=== PATIENT | male | born 1965 | race American Indian/Alaskan Native ===

== ENCOUNTER 2020-10-10 10:20 | Inpatient (IN) | payer OTHER ==
[2020-10-10] MEDS ORDERED: SODIUM CHLORIDE 0.9% 1000 ML 1,000 ML ONE ×2 (10:28→16:19)
[2020-10-10] MEDS ORDERED: MIDAZOLAM 5 MG/5 ML INJ MDV IV ONE (10:28)
[2020-10-10] MEDS ORDERED: LIP THERAPY VASELINE TP PRN (10:34)
[2020-10-10] MEDS ORDERED: MIDAZOLAM 2 MG/2 ML INJ IV PRN (10:34)
[2020-10-10] MEDS ORDERED: MINERAL OIL/PETROLATUM, WHITE OPHTH OINT 3.5 GM OU PRN (10:34)
[2020-10-10] MEDS ORDERED: levETIRAcetam 1000 MG/NS 0.75% 1,000 MG/100 ML BAG IV ONE (10:37)
--- NOTE | 2020-10-10 10:42 | Emergency Department Report ---
HPI - General Time Seen by Provider: 10/10/20 10:33 - HPI HPI: This is a 55-year-old male who presents to the emergency department with some seizure-like activity and subsequent cardiac arrest. Patient has a past medical history of congestive heart failure and asthma. He got his COVID-19 vaccination earlier today, just prior to presentation. Apparently the patient began feeling short of breath, started driving himself to our hospital, and called his sister to tell her that he is unwell. Patient arrived at the hospital by the ambulance bay where he was seen to have some seizure-like activity. As the emergency department staff responded to this patient in his car in the ambulance bay, he was unresponsive and there was no palpable pulse and the patient did not appear to be breathing. We put the patient onto a gurney and began chest compressions as we wheeled him into bed #21. Once in the room, we continued chest compressions, placed a peripheral IV, intubated the patient, and continued ACLS protocol. We were able to get a return of spontaneous circulation and have begun his evaluation. ED Past Medical Hx - Past Medical History Hx Hypertension: Yes Hx Congestive Heart Failure: No Hx Diabetes: No Hx Asthma: Yes Hx COPD: No Additional medical history: enlarged heart, hiatal hernia - Social History Smoking Status: Never Smoker - Medications Home Medications: Home Medications Medication Instructions Recorded Confirmed Last Taken Type Albuterol Sulfate [Ventolin HFA] 2 puff IH Q4H PRN #1 [id number] 07/06/13 Unknown Rx Prednisone 40 mg PO QDAY #8 tablet 07/06/13 Unknown Rx Albuterol Mdi (or & Nicu Only) 2 puff IH Q4H PRN #1 inha 07/07/13 Unknown Rx [ProAir HFA Inhaler] Azithromycin [Zithromax Z-KYLE] 500 mg PO QDAY #5 tab 07/07/13 Unknown Rx HYDROcodone/APAP 5-325 [[place] 2 each PO Q6H PRN #30 tablet 07/07/13 Unknown Rx 5-325 mg TAB] predniSONE [Deltasone] 40 mg PO QDAY #10 tablet 07/07/13 Unknown Rx ED Review of Systems ROS: Stated complaint: SZ/CARDIAC ARREST Other details as noted in HPI Comment: Unobtainable due to pts medical conditions Physical Exam - Physical Exam Physical Exam: GENERAL: Patient is ill-appearing and unresponsive. HENT: Normocephalic. Atraumatic. Patient has moist mucous membranes. EYES: Pupils equal reactive to light bilaterally. NECK: Supple. Trachea is midline. CHEST/LUNGS: No spontaneous breath sounds. Breath sounds are coarse with bag valve ventilation. HEART/CARDIOVASCULAR: No spontaneous heart sounds. ABDOMEN: Abdomen is soft. Morbidly obese habitus. SKIN: Skin is warm and dry. NEURO: Patient is unresponsive to verbal or tactile stimuli. MUSCULOSKELETAL: There is no obvious deformity. There is no evidence of acute injury. ED Course - Reevaluation(s) Reevaluation #1: 10/10/20 10:46 ACS protocol was initiated in the ambulance bay and continued into room #21. I intubated the patient as per the procedure section. All the while the patient received high-quality chest compressions. The left upper extremity peripheral IV was placed by the nurse and the patient was given a dose of epinephrine and sodium bicarbonate. After a round of ACLS protocol the patient appeared to have ROSC. He was having some agonal breathing and there was a palpable femoral pulse. The patient also started to show some signs of life with occasional blinking and biting at the tube. He was given 2 mg of Versed both for sedation of the ACLS and the patient, as well as treatment of the previously mentioned seizure. A Versed drip has been ordered. Reevaluation #2: 10/10/20 12:41 The patient went over to the CT scan for a CT scan of the head without contrast and CT angiography of the chest. After completing the CT of the head the patient appeared to have bradycardia and went pulseless. A CODE BLUE was called. 10 minutes of ACLS protocol went on in the CT scanner room including bag valve ventilation, chest compressions, and the patient received 3 rounds of epinephrine and 2 of sodium bicarbonate. After 10 minutes we did get ROSC. The patient's blood pressure is severely elevated with a systolic of about 260 and the rhythm appears irregular. A nitroglycerin drip has been ordered. A repeat EKG has been ordered. The insemination worker has been contacted and consulted. - Consultations Consultation #1: 10/10/20 12:40 I spoke with the insemination worker on-call, Dr. Pierre. She was sent to the patient's presentation and the lab results thus far. She has requested an ABG to be done to look for any acid-base disturbances and see if there are any ventilatory changes that can be made. She agrees with the plan for a nitrogly cerin drip secondary to the pulmonary edema. She is aware of the consult and will make her way to the hospital/ER. - ABG Interpretation Ph: [phone] PCO2: 85 PO2: 43 Bicarbonate: 30 Interpretation: respiratory acidosis, other (Hypoxemia) - Central Line Placement Right Femoral Consent Obtained: emergent situation Time Out Performed: Yes Patient Placed on Monitor/Pulse Ox: Yes MD Prep: mask, gown, gloves Central Line Prep: Chlorhexidine scrub Local Anesthesia Used: Lidocaine 1% Amount of Anesthesia Used (mls): 3 Ultrasound Used for Placement: Yes Central Line Lumen Inserted: triple Reason for Insertion: Emergency Venous Access Central Line Position: good blood return, all ports aspirated, flus, sutured in place with nyl Dressing Applied: Tegaderm, sterile gauze/tape Patient Tolerated Procedure: well Complications: none - Intubation Time Out Performed: No Sedative: none Laryngoscope: other ([place] scope) Size: 4 ET Tube Size: 7.5 Tube Secured Depth (cm): 24 Tube Secured Location: lips Tube Placement Confirmation: visualized tube passing t, equal breath sounds bilat, no breath sounds over epi Patient Tolerated Procedure: well Intubation Complications: none ED Medical Decision Making - Lab Data Result diagrams: 10/10/20 10:48 10/10/20 10:48 Lab Results 10/10/20 10/10/20 10/10/20 Range/Units 10:36 10:46 10:46 WBC (4.5-11.0) K/mm3 RBC (3.65-5.03) M/mm3 Hgb (11.8-15.2) gm/dl Hct (35.5-45.6) % MCV (84-94) fl MCH (28-32) pg MCHC (32-34) % RDW (13.2-15.2) % Plt Count (140-440) K/mm3 Add Manual Diff Total Counted Seg Neuts % (Manual) (40.0-70.0) % Lymphocytes % (Manual) (13.4-35.0) % Monocytes % (Manual) (0.0-7.3) % Eosinophils % (Manual) (0.0-4.3) % Metamyelocytes % % Nucleated RBC % Seg Neutrophils # Man (1.8-7.7) K/mm3 Band Neutrophils # K/mm3 Lymphocytes # (Manual) (1.2-5.4) K/mm3 Abs React Lymphs (Man) K/mm3 Monocytes # (Manual) (0.0-0.8) K/mm3 Eosinophils # (Manual) (0.0-0.4) K/mm3 Basophils # (Manual) (0.0-0.1) K/mm3 Metamyelocytes # K/mm3 Myelocytes # K/mm3 Promyelocytes # K/mm3 Blast Cells # K/mm3 WBC Morphology Hypersegmented Neuts Hyposegmented Neuts Hypogranular Neuts Smudge Cells Toxic Granulation Toxic Vacuolation Dohle Bodies Pelger-Huet Anomaly Dionicio Rods Platelet Estimate Clumped Platelets Plt Clumps, EDTA Large Platelets Giant Platelets Platelet Satelliting Plt Morphology Comment RBC Morphology Dimorphic RBCs Polychromasia Hypochromasia Poikilocytosis Anisocytosis Microcytosis Macrocytosis Spherocytes Pappenheimer Bodies Sickle Cells Target Cells Tear Drop Cells Ovalocytes Helmet Cells [place] Bodies [place] Rings [place] Cells Bite Cells Crenated Cell Elliptocytes Acanthocytes (Spur) Rouleaux Hemoglobin C Crystals Schistocytes Malaria parasites Mauricio Bodies Hem Pathologist Commnt PT 13.8 (12.2-14.9) Sec. INR 1.07 (0.87-1.13) APTT 28.7 (24.2-36.6) Sec. D-Dimer (0-234) ng/mlDDU VBG pH (7.320-7.420) Sodium (137-145) mmol/L Potassium (3.6-5.0) mmol/L Chloride (98-107) mmol/L Carbon Dioxide (22-30) mmol/L Anion Gap mmol/L BUN (9-20) mg/dL Creatinine (0.8-1.3) mg/dL Estimated GFR ml/min BUN/Creatinine Ratio % Glucose (75-100) mg/dL POC Glucose 103 (70-105) mg/dL Lactic Acid 13.60 H* (0.7-2.0) mmol/L Calcium (8.4-10.2) mg/dL Ferritin (30.0-300.0) ng/mL Total Bilirubin (0.1-1.2) mg/dL AST (5-40) units/L ALT (7-56) units/L Alkaline Phosphatase (35-129) units/L Ammonia (25-60) umol/L Lactate Dehydrogenase (91-180) units/L Troponin T (0.00-0.029) ng/mL C-Reactive Protein (0.00-1.30) mg/dL NT-Pro-B Natriuret Pep (0-900) pg/mL Total Protein (6.3-8.2) g/dL Albumin (3.9-5) g/dL Albumin/Globulin Ratio % Procalcitonin (<0.15) ng/mL TSH (0.270-4.200) mlU/mL Urine Color (Yellow) Urine Turbidity (Clear) Urine pH (5.0-7.0) Ur Specific [place] (1.003-1.030) Urine Protein (Negative) mg/dL Urine Glucose (UA) (Negative) mg/dL Urine Ketones (Negative) mg/dL Urine Blood (Negative) Urine Nitrite (Negative) Urine Bilirubin (Negative) Urine Urobilinogen (<2.0) mg/dL Ur Leukocyte Esterase (Negative) Urine WBC (Auto) (0.0-6.0) /HPF Urine RBC (Auto) (0.0-6.0) /HPF U Epithel Cells (Auto) (0-13.0) /HPF Urine Opiates Screen Urine Methadone Screen Ur Barbiturates Screen Ur Phencyclidine Scrn Ur Amphetamines Screen U Benzodiazepines Scrn Urine Cocaine Screen U Marijuana (THC) Screen Drugs of Abuse Note Plasma/Serum Alcohol (0-0.07) % Blood Type Antibody Screen 10/10/20 10/10/20 10/10/20 Range/Units 10:46 10:46 10:46 WBC (4.5-11.0) K/mm3 RBC (3.65-5.03) M/mm3 Hgb (11.8-15.2) gm/dl Hct (35.5-45.6) % MCV (84-94) fl MCH (28-32) pg MCHC (32-34) % RDW (13.2-15.2) % Plt Count (140-440) K/mm3 Add Manual Diff Total Counted Seg Neuts % (Manual) (40.0-70.0) % Lymphocytes % (Manual) (13.4-35.0) % Monocytes % (Manual) (0.0-7.3) % Eosinophils % (Manual) (0.0-4.3) % Metamyelocytes % % Nucleated RBC % Seg Neutrophils # Man (1.8-7.7) K/mm3 Band Neutrophils # K/mm3 Lymphocytes # (Manual) (1.2-5.4) K/mm3 Abs React Lymphs (Man) K/mm3 Monocytes # (Manual) (0.0-0.8) K/mm3 Eosinophils # (Manual) (0.0-0.4) K/mm3 Basophils # (Manual) (0.0-0.1) K/mm3 Metamyelocytes # K/mm3 Myelocytes # K/mm3 Promyelocytes # K/mm3 Blast Cells # K/mm3 WBC Morphology Hypersegmented Neuts Hyposegmented Neuts Hypogranular Neuts Smudge Cells Toxic Granulation Toxic Vacuolation Dohle Bodies Pelger-Huet Anomaly Dionicio Rods Platelet Estimate Clumped Platelets Plt Clumps, EDTA Large Platelets Giant Platelets Platelet Satelliting Plt Morphology Comment RBC Morphology Dimorphic RBCs Polychromasia Hypochromasia Poikilocytosis Anisocytosis Microcytosis Macrocytosis Spherocytes Pappenheimer Bodies Sickle Cells Target Cells Tear Drop Cells Ovalocytes Helmet Cells [place] Bodies [place] Rings Adelfo Cells Bite Cells Crenated Cell Elliptocytes Acanthocytes (Spur) Rouleaux Hemoglobin C Crystals Schistocytes Malaria parasites Mauricio Bodies Hem Pathologist Commnt PT (12.2-14.9) Sec. INR (0.87-1.13) APTT (24.2-36.6) Sec. D-Dimer (0-234) ng/mlDDU VBG pH (7.320-7.420) Sodium (137-145) mmol/L Potassium (3.6-5.0) mmol/L Chloride (98-107) mmol/L Carbon Dioxide (22-30) mmol/L Anion Gap mmol/L BUN (9-20) mg/dL Creatinine (0.8-1.3) mg/dL Estimated GFR ml/min BUN/Creatinine Ratio % Glucose (75-100) mg/dL POC Glucose (70-105) mg/dL Lactic Acid (0.7-2.0) mmol/L Calcium (8.4-10.2) mg/dL Ferritin (30.0-300.0) ng/mL Total Bilirubin (0.1-1.2) mg/dL AST (5-40) units/L ALT (7-56) units/L Alkaline Phosphatase (35-129) units/L Ammonia 214.0 H (25-60) umol/L Lactate Dehydrogenase (91-180) units/L Troponin T (0.00-0.029) ng/mL C-Reactive Protein (0.00-1.30) mg/dL NT-Pro-B Natriuret Pep 1187 H (0-900) pg/mL Total Protein (6.3-8.2) g/dL Albumin (3.9-5) g/dL Albumin/Globulin Ratio % Procalcitonin (<0.15) ng/mL TSH 6.260 H (0.270-4.200) mlU/mL Urine Color (Yellow) Urine Turbidity (Clear) Urine pH (5.0-7.0) Ur Specific [place] (1.003-1.030) Urine Protein (Negative) mg/dL Urine Glucose (UA) (Negative) mg/dL Urine Ketones (Negative) mg/dL Urine Blood (Negative) Urine Nitrite (Negative) Urine Bilirubin (Negative) Urine Urobilinogen (<2.0) mg/dL Ur Leukocyte Esterase (Negative) Urine WBC (Auto) (0.0-6.0) /HPF Urine RBC (Auto) (0.0-6.0) /HPF U Epithel Cells (Auto) (0-13.0) /HPF Urine Opiates Screen Urine Methadone Screen Ur Barbiturates Screen Ur Phencyclidine Scrn Ur Amphetamines Screen U Benzodiazepines Scrn Urine Cocaine Screen U Marijuana (THC) Screen Drugs of Abuse Note Plasma/Serum Alcohol (0-0.07) % Blood Type Antibody Screen 10/10/20 10/10/20 10/10/20 Range/Units 10:48 10:48 10:48 WBC 10.3 (4.5-11.0) K/mm3 RBC 5.28 H (3.65-5.03) M/mm3 Hgb 15.5 H (11.8-15.2) gm/dl Hct 48.8 H (35.5-45.6) % MCV 92 (84-94) fl MCH 29 (28-32) pg MCHC 32 (32-34) % RDW 15.0 (13.2-15.2) % Plt Count 239 (140-440) K/mm3 Add Manual Diff Complete Total Counted 100 Seg Neuts % (Manual) 50.0 (40.0-70.0) % Lymphocytes % (Manual) 42.0 H (13.4-35.0) % Monocytes % (Manual) 3.0 (0.0-7.3) % Eosinophils % (Manual) 4.0 (0.0-4.3) % Metamyelocytes % 1.0 % Nucleated RBC % Not Reportable Seg Neutrophils # Man 5.2 (1.8-7.7) K/mm3 Band Neutrophils # 0.0 K/mm3 Lymphocytes # (Manual) 4.3 (1.2-5.4) K/mm3 Abs React Lymphs (Man) 0.0 K/mm3 Monocytes # (Manual) 0.3 (0.0-0.8) K/mm3 Eosinophils # (Manual) 0.4 (0.0-0.4) K/mm3 Basophils # (Manual) 0.0 (0.0-0.1) K/mm3 Metamyelocytes # 0.1 K/mm3 Myelocytes # 0.0 K/mm3 Promyelocytes # 0.0 K/mm3 Blast Cells # 0.0 K/mm3 WBC Morphology Not Reportable Hypersegmented Neuts Not Reportable Hyposegmented Neuts Not Reportable Hypogranular Neuts Not Reportable Smudge Cells Not Reportable Toxic Granulation Not Reportable Toxic Vacuolation Not Reportable Dohle Bodies Not Reportable Pelger-Huet Anomaly Not Reportable Dionicio Rods Not Reportable Platelet Estimate Consistent w auto Clumped Platelets Not Reportable Plt Clumps, EDTA Not Reportable Large Platelets Not Reportable Giant Platelets Few Platelet Satelliting Not Reportable Plt Morphology Comment Not Reportable RBC Morphology Not Reportable Dimorphic RBCs Not Reportable Polychromasia Not Reportable Hypochromasia Not Reportable Poikilocytosis Not Reportable Anisocytosis Not Reportable Microcytosis Not Reportable Macrocytosis Not Reportable Spherocytes Not Reportable Pappenheimer Bodies Not Reportable Sickle Cells Not Reportable Target Cells Not Reportable Tear Drop Cells Not Reportable Ovalocytes Not Reportable Helmet Cells Not Reportable Med[place] Bodies Not Reportable [place] Rings Not Reportable Adelfo Cells Not Reportable Bite Cells Not Reportable Crenated Cell Not Reportable Elliptocytes Not Reportable Acanthocytes (Spur) Not Reportable Rouleaux Not Reportable Hemoglobin C Crystals Not Reportable Schistocytes Not Reportable Malaria parasites Not Reportable Mauricio Bodies Not Reportable Hem Pathologist Commnt No PT (12.2-14.9) Sec. INR (0.87-1.13) APTT (24.2-36.6) Sec. D-Dimer (0-234) ng/mlDDU VBG pH (7.320-7.420) Sodium 142 (137-145) mmol/L Potassium 3.3 L (3.6-5.0) mmol/L Chloride 91.2 L (98-107) mmol/L Carbon Dioxide 22 (22-30) mmol/L Anion Gap 32 mmol/L BUN 19 (9-20) mg/dL Creatinine 1.8 H (0.8-1.3) mg/dL Estimated GFR 48 ml/min BUN/Creatinine Ratio 11 % Glucose 231 H (75-100) mg/dL POC Glucose (70-105) mg/dL Lactic Acid (0.7-2.0) mmol/L Calcium 9.2 (8.4-10.2) mg/dL Ferritin (30.0-300.0) ng/mL Total Bilirubin 0.40 (0.1-1.2) mg/dL AST 60 H (5-40) units/L ALT 57 H (7-56) units/L Alkaline Phosphatase 76 (35-129) units/L Ammonia (25-60) umol/L Lactate Dehydrogenase (91-180) units/L Troponin T 0.017 (0.00-0.029) ng/mL C-Reactive Protein (0.00-1.30) mg/dL NT-Pro-B Natriuret Pep (0-900) pg/mL Total Protein 9.0 H (6.3-8.2) g/dL Albumin 4.5 (3.9-5) g/dL Albumin/Globulin Ratio 1.0 % Procalcitonin (<0.15) ng/mL TSH (0.270-4.200) mlU/mL Urine Color (Yellow) Urine Turbidity (Clear) Urine pH (5.0-7.0) Ur Specific [place] (1.003-1.030) Urine Protein (Negative) mg/dL Urine Glucose (UA) (Negative) mg/dL Urine Ketones (Negative) mg/dL Urine Blood (Negative) Urine Nitrite (Negative) Urine Bilirubin (Negative) Urine Urobilinogen (<2.0) mg/dL Ur Leukocyte Esterase (Negative) Urine WBC (Auto) (0.0-6.0) /HPF Urine RBC (Auto) (0.0-6.0) /HPF U Epithel Cells (Auto) (0-13.0) /HPF Urine Opiates Screen Urine Methadone Screen Ur Barbiturates Screen Ur Phencyclidine Scrn Ur Amphetamines Screen U Benzodiazepines Scrn Urine Cocaine Screen U Marijuana (THC) Screen Drugs of Abuse Note Plasma/Serum Alcohol < 0.01 (0-0.07) % Blood Type Antibody Screen 10/10/20 10/10/20 10/10/20 Range/Units 10:48 10:48 10:48 WBC (4.5-11.0) K/mm3 RBC (3.65-5.03) M/mm3 Hgb (11.8-15.2) gm/dl Hct (35.5-45.6) % MCV (84-94) fl MCH (28-32) pg MCHC (32-34) % RDW (13.2-15.2) % Plt Count (140-440) K/mm3 Add Manual Diff Total Counted Seg Neuts % (Manual) (40.0-70.0) % Lymphocytes % (Manual) (13.4-35.0) % Monocytes % (Manual) (0.0-7.3) % Eosinophils % (Manual) (0.0-4.3) % Metamyelocytes % % Nucleated RBC % Seg Neutrophils # Man (1.8-7.7) K/mm3 Band Neutrophils # K/mm3 Lymphocytes # (Manual) (1.2-5.4) K/mm3 Abs React Lymphs (Man) K/mm3 Monocytes # (Manual) (0.0-0.8) K/mm3 Eosinophils # (Manual) (0.0-0.4) K/mm3 Basophils # (Manual) (0.0-0.1) K/mm3 Metamyelocytes # K/mm3 Myelocytes # K/mm3 Promyelocytes # K/mm3 Blast Cells # K/mm3 WBC Morphology Hypersegmented Neuts Hyposegmented Neuts Hypogranular Neuts Smudge Cells Toxic Granulation Toxic Vacuolation Dohle Bodies Pelger-Huet Anomaly Dionicio Rods Platelet Estimate Clumped Platelets Plt Clumps, EDTA Large Platelets Giant Platelets Platelet Satelliting Plt Morphology Comment RBC Morphology Dimorphic RBCs Polychromasia Hypochromasia Poikilocytosis Anisocytosis Microcytosis Macrocytosis Spherocytes Pappenheimer Bodies Sickle Cells Target Cells Tear Drop Cells Ovalocytes Helmet Cells [place] Bodies [place] Rings Adelfo Cells Bite Cells Crenated Cell Elliptocytes Acanthocytes (Spur) Rouleaux Hemoglobin C Crystals Schistocytes Malaria parasites Mauricio Bodies Hem Pathologist Commnt PT (12.2-14.9) Sec. INR (0.87-1.13) APTT (24.2-36.6) Sec. D-Dimer 679.5 H (0-234) ng/mlDDU VBG pH 6.870 L* (7.320-7.420) Sodium (137-145) mmol/L Potassium (3.6-5.0) mmol/L Chloride (98-107) mmol/L Carbon Dioxide (22-30) mmol/L Anion Gap mmol/L BUN (9-20) mg/dL Creatinine (0.8-1.3) mg/dL Estimated GFR ml/min BUN/Creatinine Ratio % Glucose (75-100) mg/dL POC Glucose (70-105) mg/dL Lactic Acid (0.7-2.0) mmol/L Calcium (8.4-10.2) mg/dL Ferritin (30.0-300.0) ng/mL Total Bilirubin (0.1-1.2) mg/dL AST (5-40) units/L ALT (7-56) units/L Alkaline Phosphatase (35-129) units/L Ammonia (25-60) umol/L Lactate Dehydrogenase (91-180) units/L Troponin T (0.00-0.029) ng/mL C-Reactive Protein (0.00-1.30) mg/dL NT-Pro-B Natriuret Pep (0-900) pg/mL Total Protein (6.3-8.2) g/dL Albumin (3.9-5) g/dL Albumin/Globulin Ratio % Procalcitonin (<0.15) ng/mL TSH (0.270-4.200) mlU/mL Urine Color (Yellow) Urine Turbidity (Clear) Urine pH (5.0-7.0) Ur Specific [place] (1.003-1.030) Urine Protein (Negative) mg/dL Urine Glucose (UA) (Negative) mg/dL Urine Ketones (Negative) mg/dL Urine Blood (Negative) Urine Nitrite (Negative) Urine Bilirubin (Negative) Urine Urobilinogen (<2.0) mg/dL Ur Leukocyte Esterase (Negative) Urine WBC (Auto) (0.0-6.0) /HPF Urine RBC (Auto) (0.0-6.0) /HPF U Epithel Cells (Auto) (0-13.0) /HPF Urine Opiates Screen Urine Methadone Screen Ur Barbiturates Screen Ur Phencyclidine Scrn Ur Amphetamines Screen U Benzodiazepines Scrn Urine Cocaine Screen U Marijuana (THC) Screen Drugs of Abuse Note Plasma/Serum Alcohol (0-0.07) % Blood Type AB POSITIVE Antibody Screen Negative 10/10/20 10/10/20 10/10/20 Range/Units 10:48 10:48 10:48 WBC (4.5-11.0) K/mm3 RBC (3.65-5.03) M/mm3 Hgb (11.8-15.2) gm/dl Hct (35.5-45.6) % MCV (84-94) fl MCH (28-32) pg MCHC (32-34) % RDW (13.2-15.2) % Plt Count (140-440) K/mm3 Add Manual Diff Total Counted Seg Neuts % (Manual) (40.0-70.0) % Lymphocytes % (Manual) (13.4-35.0) % Monocytes % (Manual) (0.0-7.3) % Eosinophils % (Manual) (0.0-4.3) % Metamyelocytes % % Nucleated RBC % Seg Neutrophils # Man (1.8-7.7) K/mm3 Band Neutrophils # K/mm3 Lymphocytes # (Manual) (1.2-5.4) K/mm3 Abs React Lymphs (Man) K/mm3 Monocytes # (Manual) (0.0-0.8) K/mm3 Eosinophils # (Manual) (0.0-0.4) K/mm3 Basophils # (Manual) (0.0-0.1) K/mm3 Metamyelocytes # K/mm3 Myelocytes # K/mm3 Promyelocytes # K/mm3 Blast Cells # K/mm3 WBC Morphology Hypersegmented Neuts Hyposegmented Neuts Hypogranular Neuts Smudge Cells Toxic Granulation Toxic Vacuolation Dohle Bodies Pelger-Huet Anomaly Dionicio Rods Platelet Estimate Clumped Platelets Plt Clumps, EDTA Large Platelets Giant Platelets Platelet Satelliting Plt Morphology Comment RBC Morphology Dimorphic RBCs Polychromasia Hypochromasia Poikilocytosis Anisocytosis Microcytosis Macrocytosis Spherocytes Pappenheimer Bodies Sickle Cells Target Cells Tear Drop Cells Ovalocytes Helmet Cells [place] Bodies [place] Rings Adelfo Cells Bite Cells Crenated Cell Elliptocytes Acanthocytes (Spur) Rouleaux Hemoglobin C Crystals Schistocytes Malaria parasites Mauricio Bodies Hem Pathologist Commnt PT (12.2-14.9) Sec. INR (0.87-1.13) APTT (24.2-36.6) Sec. D-Dimer (0-234) ng/mlDDU VBG pH (7.320-7.420) Sodium (137-145) mmol/L Potassium (3.6-5.0) mmol/L Chloride (98-107) mmol/L Carbon Dioxide (22-30) mmol/L Anion Gap mmol/L BUN (9-20) mg/dL Creatinine (0.8-1.3) mg/dL Estimated GFR ml/min BUN/Creatinine Ratio % Glucose (75-100) mg/dL POC Glucose (70-105) mg/dL Lactic Acid (0.7-2.0) mmol/L Calcium (8.4-10.2) mg/dL Ferritin 81.4 (30.0-300.0) ng/mL Total Bilirubin (0.1-1.2) mg/dL AST (5-40) units/L ALT (7-56) units/L Alkaline Phosphatase (35-129) units/L Ammonia (25-60) umol/L Lactate Dehydrogenase 386 H (91-180) units/L Troponin T (0.00-0.029) ng/mL C-Reactive Protein 0.90 (0.00-1.30) mg/dL NT-Pro-B Natriuret Pep (0-900) pg/mL Total Protein (6.3-8.2) g/dL Albumin (3.9-5) g/dL Albumin/Globulin Ratio % Procalcitonin 0.09 (<0.15) ng/mL TSH (0.270-4.200) mlU/mL Urine Color (Yellow) Urine Turbidity (Clear) Urine pH (5.0-7.0) Ur Specific [place] (1.003-1.030) Urine Protein (Negative) mg/dL Urine Glucose (UA) (Negative) mg/dL Urine Ketones (Negative) mg/dL Urine Blood (Negative) Urine Nitrite (Negative) Urine Bilirubin (Negative) Urine Urobilinogen (<2.0) mg/dL Ur Leukocyte Esterase (Negative) Urine WBC (Auto) (0.0-6.0) /HPF Urine RBC (Auto) (0.0-6.0) /HPF U Epithel Cells (Auto) (0-13.0) /HPF Urine Opiates Screen Urine Methadone Screen Ur Barbiturates Screen Ur Phencyclidine Scrn Ur Amphetamines Screen U Benzodiazepines Scrn Urine Cocaine Screen U Marijuana (THC) Screen Drugs of Abuse Note Plasma/Serum Alcohol (0-0.07) % Blood Type Antibody Screen 10/10/20 10/10/20 Range/Units 10:50 10:50 WBC (4.5-11.0) K/mm3 RBC (3.65-5.03) M/mm3 Hgb (11.8-15.2) gm/dl Hct (35.5-45.6) % MCV (84-94) fl MCH (28-32) pg MCHC (32-34) % RDW (13.2-15.2) % Plt Count (140-440) K/mm3 Add Manual Diff Total Counted Seg Neuts % (Manual) (40.0-70.0) % Lymphocytes % (Manual) (13.4-35.0) % Monocytes % (Manual) (0.0-7.3) % Eosinophils % (Manual) (0.0-4.3) % Metamyelocytes % % Nucleated RBC % Seg Neutrophils # Man (1.8-7.7) K/mm3 Band Neutrophils # K/mm3 Lymphocytes # (Manual) (1.2-5.4) K/mm3 Abs React Lymphs (Man) K/mm3 Monocytes # (Manual) (0.0-0.8) K/mm3 Eosinophils # (Manual) (0.0-0.4) K/mm3 Basophils # (Manual) (0.0-0.1) K/mm3 Metamyelocytes # K/mm3 Myelocytes # K/mm3 Promyelocytes # K/mm3 Blast Cells # K/mm3 WBC Morphology Hypersegmented Neuts Hyposegmented Neuts Hypogranular Neuts Smudge Cells Toxic Granulation Toxic Vacuolation Dohle Bodies Pelger-Huet Anomaly Dionicio Rods Platelet Estimate Clumped Platelets Plt Clumps, EDTA Large Platelets Giant Platelets Platelet Satelliting Plt Morphology Comment RBC Morphology Dimorphic RBCs Polychromasia Hypochromasia Poikilocytosis Anisocytosis Microcytosis Macrocytosis Spherocytes Pappenheimer Bodies Sickle Cells Target Cells Tear Drop Cells Ovalocytes Helmet Cells Medley-[place] Bodies [place] Rings [place] Cells Bite Cells Crenated Cell Elliptocytes Acanthocytes (Spur) Rouleaux Hemoglobin C Crystals Schistocytes Malaria parasites Mauricio Bodies Hem Pathologist Commnt PT (12.2-14.9) Sec. INR (0.87-1.13) APTT (24.2-36.6) Sec. D-Dimer (0-234) ng/mlDDU VBG pH (7.320-7.420) Sodium (137-145) mmol/L Potassium (3.6-5.0) mmol/L Chloride (98-107) mmol/L Carbon Dioxide (22-30) mmol/L Anion Gap mmol/L BUN (9-20) mg/dL Creatinine (0.8-1.3) mg/dL Estimated GFR ml/min BUN/Creatinine Ratio % Glucose (75-100) mg/dL POC Glucose (70-105) mg/dL Lactic Acid (0.7-2.0) mmol/L Calcium (8.4-10.2) mg/dL Ferritin (30.0-300.0) ng/mL Total Bilirubin (0.1-1.2) mg/dL AST (5-40) units/L ALT (7-56) units/L Alkaline Phosphatase (35-129) units/L Ammonia (25-60) umol/L Lactate Dehydrogenase (91-180) units/L Troponin T (0.00-0.029) ng/mL C-Reactive Protein (0.00-1.30) mg/dL NT-Pro-B Natriuret Pep (0-900) pg/mL Total Protein (6.3-8.2) g/dL Albumin (3.9-5) g/dL Albumin/Globulin Ratio % Procalcitonin (<0.15) ng/mL TSH (0.270-4.200) mlU/mL Urine Color Yellow (Yellow) Urine Turbidity Clear (Clear) Urine pH 7.0 (5.0-7.0) Ur Specific [place] 1.016 (1.003-1.030) Urine Protein 100 mg/dl (Negative) mg/dL Urine Glucose (UA) Neg (Negative) mg/dL Urine Ketones Neg (Negative) mg/dL Urine Blood Neg (Negative) Urine Nitrite Neg (Negative) Urine Bilirubin Neg (Negative) Urine Urobilinogen < 2.0 (<2.0) mg/dL Ur Leukocyte Esterase Tr (Negative) Urine WBC (Auto) 2.0 (0.0-6.0) /HPF Urine RBC (Auto) 16.0 (0.0-6.0) /HPF U Epithel Cells (Auto) 1.0 (0-13.0) /HPF Urine Opiates Screen Negative Urine Methadone Screen Negative Ur Barbiturates Screen Negative Ur Phencyclidine Scrn Negative Ur Amphetamines Screen Negative U Benzodiazepines Scrn Negative Urine Cocaine Screen Negative U Marijuana (THC) Screen Positive Drugs of Abuse Note Disclamer Plasma/Serum Alcohol (0-0.07) % Blood Type Antibody Screen - EKG Data -: EKG Interpreted by Me EKG shows normal: sinus rhythm (PVCs), axis (Left axis deviation), intervals, QRS complexes (LVH), ST-T waves (Nonspecific ST-T waves) Rate: tachycardia (114 bpm) - EKG Data When compared to previous EKG there are: previous EKG unavailable Interpretation: other (Sinus rhythm at 114 bpm, left axis deviation, LVH, nonspecific ST-T waves) - Radiology Data Radiology results: report reviewed, image reviewed interpreted by me: Chest x-ray shows moderate cardiomegaly. There is bilateral patchy areas of opacification concerning for interstitial edema versus pneumonia. No pneumothorax. Endotracheal tube is in appropriate position. CT head/brain wo con INDICATION: Altered mental status. TECHNIQUE: Routine CT head without contrast. All CT scans at this location are performed using CT dose reduction for ALARA by means of automated exposure control. COMPARISON: None. FINDINGS: BRAIN / INTRACRANIAL CONTENTS: No acute hemorrhage, mass effect, midline shift, or hydrocephalus. No appreciable acute large territorial or lacunar infarct. No chronic infarct or focal atrophy. Normal brain volume and ventricular/sulcal size for age. ORBITS: No significant abnormality of visualized orbits. SINUSES / MASTOIDS: No significant abnormality of visualized sinuses and mastoid air cells. ADDITIONAL FINDINGS: None. IMPRESSION: 1. No acute intracranial abnormality. - Medical Decision Making This patient drove himself to our ambulance bay after getting his Covid vaccination and starting to get shortness of breath. Upon arrival the patient had a witnessed seizure by his sister. Just after this the patient appeared to go into cardiac arrest. We started chest compressions as the patient was moved into the emergency department and room #21. I intubated the patient while I also supervised ACLS protocol. The patient had ROSC after 1 round including epinephrine and sodium bicarbonate. The patient's chest x-ray shows severe pulmonary edema versus pneumonia. Given the thick pinkish-red frothy sputum seen during and after intubation, I suspect flash pulmonary edema. The patient's labs shows a venous pH of 6.87, lactic acidosis of 13, some mild renal insufficiency with a GFR of 47, mild transaminitis, hyperammonemia. The patient was given another dose of sodium bicarbonate for the acidosis. He was given a dose of hydralazine as he had and initial blood pressure with a systolic of about 230. The patient was given some Lasix for diuresis. He was given antibiotics to cover empirically for possible pneumonia. The patient was sent over to the CT scanner for a CT scan of his head. This was completed and did not show any bleed, shift, mass, large vessel occlusion, or any other acute process. While over at CT, the patient once again had cardiac arrest. I responded to this code and the patient had ROSC after about 10 minutes and 3 rounds of ACLS protocol. Once again the patient's blood pressure was extremely elevated. Given the pulmonary edema and the accelerated hypertension, I started the patient on a nitroglycerin drip. Shortly after the nitro drip was started the patient's blood pressure began to significantly drop. At first the patient was normotensive but then became hypotensive. The nitroglycerin drip was stopped and the patient ended up needing Levophed. ABG shows hypoxemia and respiratory acidosis. The insemination worker was contacted and consulted. The patient was admitted to the ICU and was accepted for admission by the hospitalist, Dr. Kelly. Critical Care Time: Yes Critical care time in (mins) excluding proc time.: 80 Critical care attestation.: If time is entered above; I have spent that time in minutes in the direct care of this critically ill patient, excluding procedure time. Critical care time was spent on this patient in doing his initial evaluation, multiple reevaluations, supervision of ACLS protocol, ordering and interpretation of labs and imaging, medications for diuresis, nitro drip for accelerated hypertension and CHF, then Levophed for hypotension, discussion with the insemination worker and hospitalist services, multiple discussions with the patient's family. This does not include the time spent doing the intubation and central line procedures. Critical Care Time: 80 minutes ED Disposition Clinical Impression: Cardiac arrest, Flash pulmonary edema, MOE (acute kidney injury), Lactic acidosis, Hypoxemia Acute respiratory failure Qualifiers: Respiratory failure complication: hypoxia and hypercapnia Qualified Code(s): J96.01 - Acute respiratory failure with hypoxia; J96.02 - Acute respiratory failure with hypercapnia Disposition: OP ADMIT IP TO THIS HOSP Is pt being admited?: Yes Condition: Critical Time of Disposition: 12:56
[2020-10-10] MEDS ORDERED: MIDAZOLAM 100 MG in SODIUM CHLORIDE 0.9% 80 ML IV SCH (11:00)
[2020-10-10 11:14] LABS: Hematocrit 48.8 % (35.5-45.6); Hemoglobin 15.5 gm/dl (11.8-15.2); Mean Corpuscular HGB Conc 32 % (32-34); Mean Corpuscular Volume 92 fl (84-94); Red Blood Count 5.28 M/mm3 (3.65-5.03)
[2020-10-10] MEDS ORDERED: hydrALAZINE 20 MG/1 ML INJ IV ONE (11:21)
[2020-10-10 11:23] LABS: Platelet Count 239 K/mm3 (140-440)
[2020-10-10 11:25] LABS: Bilirubin,Urine NEG (Negative); Blood,Urine NEG (Negative); Color,Urine Yellow (Yellow); Urobilinogen,Urine < 2.0 mg/dL (<2.0)
[2020-10-10] MEDS ORDERED: SODIUM BICARB 8.4% 50 MEQ/50 ML SYRINGE IV ONE ×4 (11:26→17:32)
[2020-10-10 11:27] LABS: INR 1.07 (0.87-1.13)
[2020-10-10 11:28] LABS: Partial Thromboplastin Time 28.7 Sec. (24.2-36.6)
--- NOTE | 2020-10-10 11:29 | XRay Report ---
CHEST 1 VIEW INDICATION: ETT placement. COMPARISON: None FINDINGS: SUPPORT DEVICES: Endotracheal tube tip near the level of the clavicles in satisfactory position. HEART: Within normal limits. LUNGS/PLEURA: Moderate patchy airspace disease greatest in throughout the right lung but to a lesser extent centrally in the left lung as could be seen with asymmetric edema or patchy multifocal airspac e disease. ADDITIONAL FINDINGS: None. IMPRESSION: 1. Endotracheal tube in satisfactory position. 2. Pulmonary findings as above. Signer Name: Trevon Shelby MD Signed: 10/10/2020 11:24 AM Workstation Name: [id number]
[2020-10-10 11:39] LABS: Albumin 4.5 g/dL (3.9-5); Calcium 9.2 mg/dL (8.4-10.2)
[2020-10-10] MEDS ORDERED: FUROSEMIDE 40 MG/4 ML INJ IV ONE ×2 (11:44→16:32)
[2020-10-10] MEDS ORDERED: AZITHROMYCIN/NS 500 MG/250 ML 500 MG/250 ML BAG IV ONE (11:44)
[2020-10-10] MEDS ORDERED: cefTRIAXone/NS 1 GM/50 ML 1 GM/50 ML BAG IV ONE (11:44)
[2020-10-10 12:01] LABS: Amphetamine Screen,Urine Negative; Benzodiazepines Screen,Urine Negative; Cocaine Screen,Urine Negative; Methadone Screen,Urine Negative; Opiate Screen,Urine Negative
[2020-10-10] MEDS ORDERED: LACTULOSE 20 GM/30 ML ORAL LIQD PO ONE (12:10)
[2020-10-10 12:13] LABS: Cannabinoid Screen,Urine Positive
[2020-10-10 12:26] LABS: C-Reactive Protein 0.9 mg/dL (0.00-1.30)
--- NOTE | 2020-10-10 12:54 | Cat Scan Report ---
CT head/brain wo con INDICATION: Altered mental status. TECHNIQUE: Routine CT head without contrast. All CT scans at this location are performed using CT dos e reduction for ALARA by means of automated exposure control. COMPARISON: None. FINDINGS: BRAIN / INTRACRANIAL CONTENTS: No acute hemorrhage, mass effect, midline shift, or hydrocephalus. No appreciable acute large territorial or lacunar infarct. No chronic infarct or focal atrophy. Normal b rain volume and ventricular/sulcal size for age. ORBITS: No significant abnormality of visualized orbits. SINUSES / MASTOIDS: No significant abnormality of visualized sinuses and mastoid air cells. ADDITIONAL FINDINGS: None. IMPRESSION: 1. No acute intracranial abnormality. Signer Name: Kashif Wagner MD Signed: 10/10/2020 12:49 PM Workstation Name: [id number]
[2020-10-10] MEDS ORDERED: NITROGLYCERIN DRIP 50 MG/250 ML BOTTLE IV SCH (13:00)
[2020-10-10 13:02] LABS: Total Cells Counted 100
[2020-10-10 13:03] LABS: Giant Platelets Few; Platelet Estimate Consistent w Auto
[2020-10-10] MEDS ORDERED: NORepinephrine/NS 4 MG-250 ML 4 MG/250 ML BAG IV ONE (13:49)
[2020-10-10] MEDS: NORepinephrine 8 MG in SODIUM CHLORIDE 0.9% 250ML 242 ML IV SCH ×2 (14:14→20:11)
[2020-10-10 15:57] LABS: ABG Base Excess 2.2 mmol/L (-2.0-3.0); ABG Methemoglobin 0.5 % (0.0-1.5); ABG Oxygen Saturation 86.1 % (95.0-99.0); ABG PCO2 75.3 mm Hg; ABG PH 7.247 pH Units (7.350-7.450); ABG PO2 60.3 mm Hg (80.0-90.0)
[2020-10-10] MEDS ORDERED: EPINEPHrine 1 MG/10 ML SYRINGE ONE (16:07)
--- NOTE | 2020-10-10 16:21 | Event Note ---
Date: 10/10/20 Arrived to the ICU, on arrival had a cardiac arrest. Resuscitated according to ACLS protocol, ROSC after 1 round Epi, 1 calcium and 1 bicarb with 1 round of chest compressions with ROSC notified
--- NOTE | 2020-10-10 16:22 | Procedure Note ---
Date of procedure: 10/10/20 Pre-op diagnosis: Cardiopulmonary arrest with ROSC, pulmonary edema on MVS Post-op diagnosis: same Procedure: Right femoral arterial line placement The right groin was cleaned and draped in sterile fashion. The right femoral aretery was identified- patient had a right femoral CVC Red pulsatile blood aspirated, guidewire passed and femoral arterial catheter placed Guide wire removed. Good arterial wave form Cather sutured in place and clean dry dressing placed Surgeon: KARINE VILLALPANDO Estimated blood loss: minimal Pathology: none Condition: critical Disposition: ICU
--- NOTE | 2020-10-10 16:22 | Consultation ---
History of Present Illness Consult date: 10/10/20 Requesting physician: DONA KELLY Reason for consult: other (Cardiopulmoanry arrest with ROSC, acute pulmonary edema, on MVS) History of present illness: [facility] History of present illness: 55-year-old -[place] male with history of hypertension and asthma and obesity arrived to the emergency room after Covid vaccine and passed out in the car at the emergency room bay. Patient was found to be unresponsive and with no pulse. ACLS protocol was initiated from the car to the emergency room #21 and continued ACLS protocol. Patient was intubated and after couple of epinephrines return of spontaneous circulation happened. Central line was placed and patient was also started on pressors. Patient had a COVID-19 vaccination earlier today. While driving patient began feeling short of breath because of which return back and was coming to the hospital. He called her sister to tell her that he was not feeling well. In the emergency room patient seemed to have seizure-like activity and then collapsed and was unresponsive. No palpable pulse. And no spontaneous respirations. Patient was put onto a gurney and chest compressions were started and was recently into room #21. Chest compressions were done and peripheral IV was placed intubation was done and started on pressors. Patient did not have any fever shortness of breath or cough or any symptoms prior to the COVID-19 vaccination. Patient coded twice in the emergency room. One before the imaging studies and once after the imaging studies I have been consulted for critical care management Patient seen and examined. Vitals, albs, medications, chart and imaging reviewed. ED course per medical records and documentation - Reevaluation(s) Reevaluation #1: 10/10/20 10:46 ACS protocol was initiated in the ambulance bay and continued into room #21. I intubated the patient as per the procedure section. All the while the patient received high-quality chest compressions. The left upper extremity peripheral IV was placed by the nurse and the patient was given a dose of epinephrine and sodium bicarbonate. After a round of ACLS protocol the patient appeared to have ROSC. He was having some agonal breathing and there was a palpable femoral pulse. The patient also started to show some signs of life with occasional blinking and biting at the tube. He was given 2 mg of Versed both for sedation of the ACLS and the patient, as well as treatment of the previously mentioned seizure. A Versed drip has been ordered. Reevaluation #2: 10/10/20 12:41 The patient went over to the CT scan for a CT scan of the head without contrast and CT angiography of the chest. After completing the CT of the head the patient appeared to have bradycardia and went pulseless. A CODE BLUE was jada jimenez. 10 minutes of ACLS protocol went on in the CT scanner room including bag valve ventilation, chest compressions, and the patient received 3 rounds of epinephrine and 2 of sodium bicarbonate. After 10 minutes we did get ROSC. The patient's blood pressure is severely elevated with a systolic of about 260 and the rhythm appears irregular. A nitroglycerin drip has been ordered. A repeat EKG has been ordered. The instructional facilitator has been contacted and consulted. Medications and Allergies Allergies Allergy/AdvReac Type Severity Reaction Status Date / Time No Known Allergies Allergy Unverified 07/06/13 15:19 Home Medications Medication Instructions Recorded Confirmed Last Taken Type Albuterol Sulfate [Ventolin HFA] 2 puff IH Q4H PRN #1 hfa.aer.[id number] 07/06/13 Unknown Rx Prednisone 40 mg PO QDAY #8 tablet 07/06/13 Unknown Rx Albuterol Mdi (or & Nicu Only) 2 puff IH Q4H PRN #1 inha 07/07/13 Unknown Rx [ProAir HFA Inhaler] Azithromycin [Zithromax Z-KYLE] 500 mg PO QDAY #5 tab 07/07/13 Unknown Rx HYDROcodone/APAP 5-325 [[place] 2 each PO Q6H PRN #30 tablet 07/07/13 Unknown Rx 5-325 mg TAB] predniSONE [Deltasone] 40 mg PO QDAY #10 tablet 07/07/13 Unknown Rx Active Meds: Active Medications Hydrophilic Ointment (Lip Therapy Vaseline) 1 applic TP Q2HR PRN PRN Reason: Dry Lips Propofol (Diprivan 10 Mg/Ml) 1,000 mg in 100 mls @ 4.23 mls/hr IV TITR PEPITO; Protocol Last Admin: 10/10/20 11:38 Dose: 5 mcg/kg/min, 4.23 mls/hr Documented by: Nitroglycerin/Dextrose (Tridil Drip 50mg/250ml) 50 mg in 250 mls @ 3 mls/hr IV TITR PEPITO; Protocol Last Titration: 10/10/20 13:17 Dose: 0 mcg/min, 0 mls/hr Documented by: Norepinephrine 8 mg/ Sodium (Chloride) 250 mls @ 3.75 mls/hr IV TITRATE PEPITO; Protocol Last Titration: 10/10/20 15:49 Dose: 4 mcg/min, 7.5 mls/hr Documented by: Epinephrine 8 mg/ Sodium (Chloride) 250 mls @ 3.75 mls/hr IV TITR PEPITO; Protocol Multi-Ingred Cream/Lotion/Oil/Oint (Mineral Oil/Petrolatum, White Ophth Oint 3.5 Gm) 1 applic OU Q4HR PRN PRN Reason: Dry Eye(s) Review of Systems ROS unobtainable: due to endotracheal tube, due to mental status Physical Examination Vital signs: Vital Signs Pulse Resp BP 119 H 26 H 228/162 10/10/20 10:34 10/10/20 10:34 10/10/20 10:34 Results - Laboratory Findings CBC and BMP: 10/11/20 02:00 10/11/20 02:00 ABG ABG pH 7.247 pH Units (7.350-7.450) L 10/10/20 15:50 POC ABG pCO2 85.0 mmHg (32.0-48.0) H 10/10/20 14:10 ABG pCO2 75.3 mm Hg 10/10/20 15:50 POC ABG pO2 43.7 mmHg (83-108) L 10/10/20 14:10 ABG pO2 60.3 mm Hg (80.0-90.0) L 10/10/20 15:50 POC ABG HCO3 30.7 10/10/20 14:10 ABG O2 Saturation 86.1 % (95.0-99.0) L 10/10/20 15:50 PT/INR, D-dimer PT 13.8 Sec. (12.2-14.9) 10/10/20 10:46 INR 1.07 (0.87-1.13) 10/10/20 10:46 D-Dimer 679.5 ng/mlDDU (0-234) H 10/10/20 10:48 Abnormal lab findings: Abnormal Labs 10/10/20 10/10/20 10/10/20 10:46 10:46 10:46 RBC Hgb Hct Lymphocytes % (Manual) D-Dimer ABG pH POC ABG pCO2 POC ABG pO2 ABG pO2 ABG HCO3 ABG O2 Saturation ABG Oxyhemoglobin ABG Glucose VBG pH Oxyhemoglobin Potassium Chloride Creatinine Glucose Lactic Acid 13.60 H* AST ALT Ammonia 214.0 H Lactate Dehydrogenase NT-Pro-B Natriuret Pep Total Protein TSH 6.260 H Arterial Blood Glucose Arterial Blood Ionized Calcium 10/10/20 10/10/20 10/10/20 10:46 10:48 10:48 RBC 5.28 H Hgb 15.5 H Hct 48.8 H Lymphocytes % (Manual) 42.0 H D-Dimer ABG pH POC ABG pCO2 POC ABG pO2 ABG pO2 ABG HCO3 ABG O2 Saturation ABG Oxyhemoglobin ABG Glucose VBG pH Oxyhemoglobin Potassium 3.3 L Chloride 91.2 L Creatinine 1.8 H Glucose 231 H Lactic Acid AST 60 H ALT 57 H Ammonia Lactate Dehydrogenase NT-Pro-B Natriuret Pep 1187 H Total Protein 9.0 H TSH Arterial Blood Glucose Arterial Blood Ionized Calcium 10/10/20 10/10/20 10/10/20 10:48 10:48 10:48 RBC Hgb Hct Lymphocytes % (Manual) D-Dimer 679.5 H ABG pH POC ABG pCO2 POC ABG pO2 ABG pO2 ABG HCO3 ABG O2 Saturation ABG Oxyhemoglobin ABG Glucose VBG pH 6.870 L* Oxyhemoglobin Potassium Chloride Creatinine Glucose Lactic Acid AST ALT Ammonia Lactate Dehydrogenase 386 H NT-Pro-B Natriuret Pep Total Protein TSH Arterial Blood Glucose Arterial Blood Ionized Calcium 10/10/20 10/10/20 10/10/20 14:10 14:20 15:50 RBC Hgb Hct Lymphocytes % (Manual) D-Dimer ABG pH 7.175 L 7.247 L POC ABG pCO2 85.0 H POC ABG pO2 43.7 L ABG pO2 60.3 L ABG HCO3 32.0 H ABG O2 Saturation 86.1 L ABG Oxyhemoglobin 67.7 L ABG Glucose 247 H VBG pH Oxyhemoglobin 84.4 L Potassium Chloride Creatinine Glucose Lactic Acid 4.00 H* AST ALT Ammonia Lactate Dehydrogenase NT-Pro-B Natriuret Pep Total Protein TSH Arterial Blood Glucose 247 H Arterial Blood Ionized Calcium 4.4 L Assessment and Plan Cardiac arrest x3 with ROSC Severe septic and cardiogenic shock Acute respiratory failure with hypoxia and hypercarbia Acute pulmonary edema MOE (acute kidney injury) Lactic acidosis, severe metabolic acidosis Bilateral pneumonia, aspiration pneumonia Elevated troponins - IV furosemide infusion initiated for pulmoanry edema -IV heparin for elevated troponins with possible NSTEMI. Discussed with cardiology, 12 lead EKG is unremarkable- no need to activate STEMI -Continue with heparin infusion, in the event that this could be also be p ulmonary embolism -Titrate supplemental oxygen to keep O2 sats >90%. Currently on FIO2 100% - Peep at 12, monitor airway pressures closely - Lung protective strategies - continue bronchodilators with pulmonary hygiene per RT -Monitor urine output closely -Start bicarb infusion - avoid nephrotoxins, renally dose all medications - Accuchecks with glycemic control per SSI (While critically ill target blood glucose of 140-180 mg/dL; avoid hypoglycemia) - Titrate for target RASS 0 to -1 - continue antibiotics, -Propofol, titrate to RASS of -1 to -2 - continue Scopolamine for secretion control - continue wound care per RN/WCN - Maintenance of sleep-wake cycle, avoid delirium - NPO - Stress ulcer prophylaxis - Monitor hemodynamics closely -Right femoral a-line placed for invasive hemodynamic monitoring -ABG, CBC, CMP in 4 hours -Follow up COVID testing results CONDITION: CRITICAL PROGNOSIS: GRAVE CODE STATUS: FULL CODE The high probability of a clinically significant, sudden or life-threatening deterioration of the [respiratory, cardiovascular, renal & neurologic] system(s) required my full and direct attention, intervention and personal management. The aggregate critical care time was [96] minutes without overlap. Time includes spent on; [x] Data Review and interpretation [x] Patient assessment and monitoring of vital signs [x] Documentation [x] Medication orders and management Discussed with the mother at the bedside Discussed with primary Attending- Dr. Kelly
[2020-10-10] MEDS ORDERED: EPINEPHrine 1 MG/1 ML 8 MG in SODIUM CHLORIDE 0.9% 250ML 242 ML IV SCH ×2 (16:30→18:00)
[2020-10-10] MEDS ORDERED: FUROSEMIDE 40 MG/4 ML INJ ONE (16:31)
[2020-10-10] MEDS ORDERED: NALOXONE 0.4 MG/1 ML INJ IV PRN (16:37)
[2020-10-10] MEDS ORDERED: MORPHINE 2 MG/1 ML INJ ONE (16:47)
[2020-10-10] MEDS ORDERED: MORPHINE 2 MG/1 ML INJ IV ONE (16:48)
[2020-10-10] MEDS ORDERED: HEPARIN 10,000 UNITS/10 ML VIAL IV ONE (16:49)
[2020-10-10] MEDS ORDERED: HEPARIN 10,000 UNITS/10 ML VIAL IV PRN (16:49)
[2020-10-10] MEDS ORDERED: MORPHINE/NS 30 MG-30 ML PCA INJ IV SCH (17:00)
[2020-10-10] MEDS ORDERED: HEPARIN/ 0.45% NACL DRIP 25,000 UNIT/500 ML BAG IV SCH (17:00)
[2020-10-10] MEDS: FUROSEMIDE 100 MG in SODIUM CHLORIDE 0.9% 90 ML IV SCH (17:10)
[2020-10-10] MEDS: SODIUM BICARBONATE IV SCH ×2 (18:25→22:21)
--- NOTE | 2020-10-10 18:26 | XRay Report ---
CHEST 1 VIEW, 10/10/2020 6:17 PM CLINICAL INFORMATION/INDICATION: Endotracheal tube placement COMPARISON: Chest radiograph, 10/10/2020 at 10:56 AM FINDINGS: SUPPORT DEVICES: Endotracheal tube remains in stable position with tip approximately 3.3 cm above the level the araceli. There has been interval placement of an esophagogastric tube with distal tip below the level of the diaphragm. HEART: There is stable enlargement of the cardiac silhouette. LUNGS/PLEURA: Diffuse bilateral predominantly airspace disease has moderately increased since the pre vious study. No pneumothorax is visualized. ADDITIONAL FINDINGS: No additional acute findings. IMPRESSION: 1. Stable positioning of endotracheal tube. 2. Interval placement of esophagogastric tube as above. 3. Interval worsening of bilateral predominantly airspace disease. Signer Name: Lolly Patricio MD Signed: 10/10/2020 6:21 PM Workstation Name: [id number]
[2020-10-10 18:52] LABS: Hematocrit 45.4 % (35.5-45.6); Hemoglobin 15.1 gm/dl (11.8-15.2); Mean Corpuscular HGB Conc 33 % (32-34); Mean Corpuscular Volume 89 fl (84-94); Red Blood Count 5.12 M/mm3 (3.65-5.03); Red Cell Distribution Width 14.5 % (13.2-15.2)
[2020-10-10 18:56] LABS: Platelet Count 240 K/mm3 (140-440)
[2020-10-10 19:09] LABS: Creatine Kinase MB 21.7 ng/mL (0.0-4.0)
[2020-10-10 19:11] LABS: Albumin 3.9 g/dL (3.9-5); Calcium 8.9 mg/dL (8.4-10.2); INR 1.07 (0.87-1.13)
[2020-10-10 19:12] LABS: Partial Thromboplastin Time 26.9 Sec. (24.2-36.6)
[2020-10-10 19:38] LABS: Chol/HDL Ratio 2.81 %
[2020-10-10 20:19] LABS: Band Neutrophils # (Manual) 6.2 K/mm3; Total Cells Counted 100
[2020-10-10 20:20] LABS: Giant Platelets Rare; Large Platelets Rare
[2020-10-10 20:21] LABS: Platelet Estimate Consistent w Auto
--- NOTE | 2020-10-10 21:34 | History and Physical Report ---
History of Present Illness Date of examination: 10/10/20 Date of admission: 10/10/20 12:56 Chief complaint: Cardiac arrest in the ambulance bay at [facility] History of present illness: 55-year-old -[place] male with history of hypertension and asthma and obesity arrived to the emergency room after Covid vaccine and passed out in the car at the emergency room bay. Patient was found to be unresponsive and with no pulse. ACLS protocol was initiated from the car to the emergency room #21 and continued ACLS protocol. Patient was intubated and after couple of epinephrines return of spontaneous circulation happened. Central line was placed and patient was also started on pressors. Patient had a COVID-19 vaccination earlier today. While driving patient began feeling short of breath because of which return back and was coming to the hospital. He called her sister to tell her that he was not feeling well. In the emergency room patient seemed to have seizure-like activity and then collapsed and was unresponsive. No palpable pulse. And no spontaneous respirations. Patient was put onto a gurney and chest compressions were started and was recently into room #21. Chest compressions were done and peripheral IV was placed intubation was done and started on pressors. Patient did not have any fever shortness of breath or cough or any symptoms prior to the COVID-19 vaccination. Patient coded twice in the emergency room. One before the imaging studies and once after the imaging studies - Past Medical History --Hypertension: Yes --Congestive Heart Failure: --Asthma: Yes Additional medical history: enlarged heart, hiatal hernia - Social Historyy Smoking Status: Never Smoker -Surgical history N/a - Family history Htn Review of Systems ROS: Constitutional cardiac arrest with revival All other systems could not be reviewed because of patient being unconscious and nonresponsive Patient was doing well till the COVID-19 vaccination and became short of breath. No fever or chills or shortness of breath before the COVID-19 vaccination. No exposure to coronavirus. ED Course - Reevaluation(s) Reevaluation #1: 10/10/20 10:46 ACS protocol was initiated in the ambulance bay and continued into room #21. I intubated the patient as per the procedure section. All the while the patient received high-quality chest compressions. The left upper extremity peripheral IV was placed by the nurse and the patient was given a dose of epinephrine and sodium bicarbonate. After a round of ACLS protocol the patient appeared to have ROSC. He was having some agonal breathing and there was a palpable femoral pulse. The patient also started to show some signs of life with occasional blinking and biting at the tube. He was given 2 mg of Versed both for sedation of the ACLS and the patient, as well as treatment of the previously mentioned seizure. A Versed drip has been ordered. Reevaluation #2: 10/10/20 12:41 The patient went over to the CT scan for a CT scan of the head without contrast and CT angiography of the chest. After completing the CT of the head the patient appeared to have bradycardia and went pulseless. A CODE BLUE was called. 10 minutes of ACLS protocol went on in the CT scanner room including bag valve ventilation, chest compressions, and the patient received 3 rounds of epinephrine and 2 of sodium bicarbonate. After 10 minutes we did get ROSC. The patient's blood pressure is severely elevated with a systolic of about 260 and the rhythm appears irregular. A nitroglycerin drip has been ordered. A repeat EKG has been ordered. The back tender has been contacted and consulted. Medications and Allergies Allergies Allergy/AdvReac Type Severity Reaction Status Date / Time No Known Allergies Allergy Unverified 07/06/13 15:19 Home Medications Medication Instructions Recorded Confirmed Last Taken Type Albuterol Sulfate [Ventolin HFA] 2 puff IH Q4H PRN #1 hfa.[id number] 07/06/13 U nknown Rx Prednisone 40 mg PO QDAY #8 tablet 07/06/13 Unknown Rx Albuterol Mdi (or & Nicu Only) 2 puff IH Q4H PRN #1 inha 07/07/13 Unknown Rx [ProAir HFA Inhaler] Azithromycin [Zithromax Z-KYLE] 500 mg PO QDAY #5 tab 07/07/13 Unknown Rx HYDROcodone/APAP 5-325 [[place] 2 each PO Q6H PRN #30 tablet 07/07/13 Unknown Rx 5-325 mg TAB] predniSONE [Deltasone] 40 mg PO QDAY #10 tablet 07/07/13 Unknown Rx Active Meds: Active Medications Heparin Sodium (Porcine) (Heparin 10,000 Units/10 Ml Vial) 5,600 unit 40 unit/kg (5600 unit) IV Q6H PRN PRN Reason: Anti-Xa Assay < 0.1 units/ml Hydrophilic Ointment (Lip Therapy Vaseline) 1 applic TP Q2HR PRN PRN Reason: Dry Lips Propofol (Diprivan 10 Mg/Ml) 1,000 mg in 100 mls @ 4.23 mls/hr IV TITR PEPITO; Pr otocol Last Titration: 10/10/20 19:52 Dose: 20 mcg/kg/min, 16.92 mls/hr Documented by: Nitroglycerin/Dextrose (Tridil Drip 50mg/250ml) 50 mg in 250 mls @ 3 mls/hr IV TITR PEPITO; Protocol Last Titration: 10/10/20 13:17 Dose: 0 mcg/min, 0 mls/hr Documented by: Norepinephrine 8 mg/ Sodium (Chloride) 250 mls @ 3.75 mls/hr IV TITRATE PEPITO; Protocol Last Titration: 10/10/20 20:33 Dose: 10 mcg/min, 18.75 mls/hr Documented by: Furosemide 100 mg/ Sodium (Chloride) 100 mls @ 5 mls/hr IV TITR PEPITO; Protocol Last Admin: 10/10/20 17:10 Dose: 100 mg/hr, 100 mls/hr Documented by: Heparin Sodium/Sodium Chloride (Heparin/ 0.45% Nacl-25,000 Unit/500 Ml) 25,000 unit in 500 mls @ 20 mls/hr IV TITRATE PEPITO; Protocol Last Admin: 10/10/20 20:01 Dose: 1,000 units/hr, 20 mls/hr Documented by: Sodium Bicarbonate 300 meq/ (Miscellaneous Information) 301 mls @ 75 mls/hr IV DIRECT PEPITO Stop: 10/13/20 22:01 Last Admin: 10/10/20 18:25 Dose: 75 mls/hr Documented by: Epinephrine 8 mg/ Sodium (Chloride) 250 mls @ 3.75 mls/hr IV DIRECT PEPITO; Protocol Morphine Sulfate (Morphine/Ns 30 Mg-30 Ml Semi Conductor Assembler Inj) 0 mg IV DIRECT PEPITO; Protocol Multi-Ingred Cream/Lotion/Oil/Oint (Mineral Oil/Petrolatum, White Ophth Oint 3.5 Gm) 1 applic OU Q4HR PRN PRN Reason: Dry Eye(s) Naloxone HCl (Naloxone 0.4 Mg/1 Ml Inj) 0.1 mg IV Q2MIN PRN PRN Reason: Res Rate </= 8 or 02 SAT < 92% Exam - Constitutional Vitals: Patient intubated Temp Pulse Resp BP Pulse Ox 98.7 F 84 30 H 104/67 86 10/10/20 20:00 10/10/20 21:00 10/10/20 21:00 10/10/20 21:00 10/10/20 21:00 General appearance: Present: no acute distress, severe distress, well-nourished - EENT Eyes: Present: PERRL ENT: hearing intact, clear oral mucosa - Neck Neck: Present: supple, normal ROM - Respiratory Respiratory effort: normal Respiratory: bilateral: CTA - Cardiovascular Heart rate: 56 Rhythm: regular Heart Sounds: Present: S1 & S2. Absent: rub, click - Extremities Extremities: no ischemia, pulses intact, pulses symmetrical, No edema Peripheral Pulses: within normal limits - Abdominal General gastrointestinal: Present: soft, non-tender, non-distended, normal bowel sounds Male genitourinary: Present: normal - Integumentary Integumentary: Present: clear, warm, dry - Musculoskeletal Musculoskeletal: generalized weakness - Psychiatric Psychiatric: other (Patient unresponsive) - Neurologic Neurologic: other (Patient unresponsive) - Allied Health Allied health notes reviewed: nursing, case management HEART Score - HEART Score History: Highly suspicious EKG: Non-specific Age: 45-65 Troponin: Troponin T 0.377 ng/mL (0.00-0.029) H* D 10/10/20 18:18 Troponin: 1-3x normal limit - Critical Actions Critical Actions: 4-6 pts:12-16.6% risk of adverse cardiac event. Should be admitted Results - Labs CBC & Chem 7: 10/11/20 02:00 10/11/20 02:00 Labs: Laboratory Last Values WBC 23.0 K/mm3 (4.5-11.0) H 10/10/20 18:18 RBC 5.12 M/mm3 (3.65-5.03) H 10/10/20 18:18 Hgb 15.1 gm/dl (11.8-15.2) 10/10/20 18:18 Hct 45.4 % (35.5-45.6) 10/10/20 18:18 MCV 89 fl (84-94) 10/10/20 18:18 MCH 30 pg (28-32) 10/10/20 18:18 MCHC 33 % (32-34) 10/10/20 18:18 RDW 14.5 % (13.2-15.2) 10/10/20 18:18 Plt Count 240 K/mm3 (140-440) 10/10/20 18:18 Add Manual Diff Complete 10/10/20 18:18 Total Counted 100 10/10/20 18:18 Seg Neutrophils % Leak Operator Paraffin Plant 10/10/20 18:18 Seg Neuts % (Manual) 60.0 % (40.0-70.0) 10/10/20 18:18 Band Neutrophils % 27.0 % 10/10/20 18:18 Lymphocytes % (Manual) 4.0 % (13.4-35.0) L 10/10/20 18:18 Monocytes % (Manual) 9.0 % (0.0-7.3) H 10/10/20 18:18 Eosinophils % (Manual) 4.0 % (0.0-4.3) 10/10/20 10:48 Metamyelocytes % 1.0 % 10/10/20 10:48 Nucleated RBC % Not Reportable 10/10/20 18:18 Seg Neutrophils # Man 13.8 K/mm3 (1.8-7.7) H 10/10/20 18:18 Band Neutrophils # 6.2 K/mm3 10/10/20 18:18 Lymphocytes # (Manual) 0.9 K/mm3 (1.2-5.4) L 10/10/20 18:18 Abs React Lymphs (Man) 0.0 K/mm3 10/10/20 18:18 Monocytes # (Manual) 2.1 K/mm3 (0.0-0.8) H 10/10/20 18:18 Eosinophils # (Manual) 0.0 K/mm3 (0.0-0.4) 10/10/20 18:18 Basophils # (Manual) 0.0 K/mm3 (0.0-0.1) 10/10/20 18:18 Metamyelocytes # 0.0 K/mm3 10/10/20 18:18 Myelocytes # 0.0 K/mm3 10/10/20 18:18 Promyelocytes # 0.0 K/mm3 10/10/20 18:18 Blast Cells # 0.0 K/mm3 10/10/20 18:18 WBC Morphology Not Reportable 10/10/20 18:18 Hypersegmented Neuts Not Reportable 10/10/20 18:18 Hyposegmented Neuts Not Reportable 10/10/20 18:18 Hypogranular Neuts Not Reportable 10/10/20 18:18 Smudge Cells Not Reportable 10/10/20 18:18 Toxic Granulation Not Reportable 10/10/20 18:18 Toxic Vacuolation Not Reportable 10/10/20 18:18 Dohle Bodies Not Reportable 10/10/20 18:18 Pelger-Huet Anomaly Not Reportable 10/10/20 18:18 Dionicio Rods Not Reportable 10/10/20 18:18 Platelet Estimate Consistent w auto 10/10/20 18:18 Clumped Platelets Not Reportable 10/10/20 18:18 Plt Clumps, EDTA Not Reportable 10/10/20 18:18 Large Platelets Rare 10/10/20 18:18 Giant Platelets Rare 10/10/20 18:18 Platelet Satelliting Not Reportable 10/10/20 18:18 Plt Morphology Comment Not Reportable 10/10/20 18:18 RBC Morphology Not Reportable 10/10/20 18:18 Dimorphic RBCs Not Reportable 10/10/20 18:18 Polychromasia Not Reportable 10/10/20 18:18 Hypochromasia Not Reportable 10/10/20 18:18 Poikilocytosis Not Reportable 10/10/20 18:18 Anisocytosis Not Reportable 10/10/20 18:18 Microcytosis Not Reportable 10/10/20 18:18 Macrocytosis Not Reportable 10/10/20 18:18 Spherocytes Not Reportable 10/10/20 18:18 Pappenheimer Bodies Not Reportable 10/10/20 18:18 Sickle Cells Not Reportable 10/10/20 18:18 Target Cells Not Reportable 10/10/20 18:18 Tear Drop Cells Not Reportable 10/10/20 18:18 Ovalocytes Not Reportable 10/10/20 18:18 Helmet Cells Not Reportable 10/10/20 18:18 Medley-Brayton Bodies Not Reportable 10/10/20 18:18 [place] Rings Not Reportable 10/10/20 18:18 [place] Cells Not Reportable 10/10/20 18:18 Bite Cells Not Reportable 10/10/20 18:18 Crenated Cell Not Reportable 10/10/20 18:18 Elliptocytes Not Reportable 10/10/20 18:18 Acanthocytes (Spur) Not Reportable 10/10/20 18:18 Rouleaux Not Reportable 10/10/20 18:18 Hemoglobin C Crystals Not Reportable 10/10/20 18:18 Schistocytes Not Reportable 10/10/20 18:18 Malaria parasites Not Reportable 10/10/20 18:18 Mauricio Bodies Not Reportable 10/10/20 18:18 Hem Pathologist Commnt No 10/10/20 18:18 PT 13.8 Sec. (12.2-14.9) 10/10/20 18:18 INR 1.07 (0.87-1.13) 10/10/20 18:18 APTT 26.9 Sec. (24.2-36.6) 10/10/20 18:18 D-Dimer 679.5 ng/mlDDU (0-234) H 10/10/20 10:48 ABG pH 7.171 (7.320-7.450) L 10/10/20 15:50 ABG pH 7.247 pH Units (7.350-7.450) L 10/10/20 15:50 POC ABG pCO2 96.6 mmHg (32.0-48.0) H 10/10/20 15:50 ABG pCO2 75.3 mm Hg 10/10/20 15:50 POC ABG pO2 55.3 mmHg (83-108) L 10/10/20 15:50 ABG pO2 60.3 mm Hg (80.0-90.0) L 10/10/20 15:50 POC ABG HCO3 34.5 10/10/20 15:50 ABG HCO3 32.0 mmol/L (20.0-26.0) H 10/10/20 15:50 ABG O2 Saturation 82.5 (0-100) 10/10/20 15:50 ABG O2 Saturation 86.1 % (95.0-99.0) L 10/10/20 15:50 ABG O2 Content 17.7 (0.0-44) 10/10/20 15:50 POC ABG Base Excess 2.3 10/10/20 15:50 ABG Base Excess 2.2 mmol/L (-2.0-3.0) 10/10/20 15:50 ABG Hemoglobin 14.9 gm/dl (14.0-18.0) 10/10/20 15:50 ABG Hemoglobin 15.3 (12.0-17.5) 10/10/20 15:50 ABG Oxyhemoglobin 81.4 (94-98) L 10/10/20 15:50 ABG Carboxyhemoglobin 1.4 % (0.0-5.0) 10/10/20 15:50 ABG Methemoglobin 0.3 (0.0-1.5) 10/10/20 15:50 ABG Methemoglobin 0.5 % (0.0-1.5) 10/10/20 15:50 ABG Sodium 144.4 mmol/L (136.0-145.0) 10/10/20 15:50 ABG Potassium 4.2 mmol/L (3.40-4.50) 10/10/20 15:50 ABG Chloride 99.0 mmol/L (98-107) 10/10/20 15:50 ABG Glucose 115 mg/dL (65-95) H 10/10/20 15:50 VBG pH 6.870 (7.320-7.420) L* 10/10/20 10:48 Oxyhemoglobin 84.4 % (95.0-99.0) L 10/10/20 15:50 Carboxyhemoglobin 1.0 (0.5-1.5) 10/10/20 15:50 FiO2 100 % 10/10/20 15:50 FiO2 % 100 10/10/20 15:50 Sodium 146 mmol/L (137-145) H 10/10/20 18:18 Potassium 4.0 mmol/L (3.6-5.0) D 10/10/20 18:18 Chloride 99.6 mmol/L (98-107) 10/10/20 18:18 Carbon Dioxide 34 mmol/L (22-30) H D 10/10/20 18:18 Anion Gap 16 mmol/L 10/10/20 18:18 BUN 27 mg/dL (9-20) H 10/10/20 18:18 Creatinine 2.7 mg/dL (0.8-1.3) H 10/10/20 18:18 Estimated GFR 30 ml/min 10/10/20 18:18 BUN/Creatinine Ratio 10 % 10/10/20 18:18 Glucose 102 mg/dL (75-100) H 10/10/20 18:18 POC Glucose 132 mg/dL (70-105) H 10/10/20 16:22 Lactic Acid 4.00 mmol/L (0.7-2.0) H* 10/10/20 14:20 Calcium 8.9 mg/dL (8.4-10.2) 10/10/20 18:18 Ferritin 81.4 ng/mL (30.0-300.0) 10/10/20 10:48 Total Bilirubin 0.40 mg/dL (0.1-1.2) 10/10/20 18:18 AST 90 units/L (5-40) H 10/10/20 18:18 ALT 66 units/L (7-56) H 10/10/20 18:18 Alkaline Phosphatase 65 units/L (35-129) 10/10/20 18:18 Ammonia 214.0 umol/L (25-60) H 10/10/20 10:46 Lactate Dehydrogenase 386 units/L (91-180) H 10/10/20 10:48 Total Creatine Kinase 1192 units/L (55-170) H 10/10/20 18:18 CK-MB (CK-2) 21.7 ng/mL (0.0-4.0) H 10/10/20 18:18 CK-MB (CK-2) Rel Index 1.8 (0-4) 10/10/20 18:18 Troponin T 0.377 ng/mL (0.00-0.029) H* D 10/10/20 18:18 C-Reactive Protein 0.90 mg/dL (0.00-1.30) 10/10/20 10:48 NT-Pro-B Natriuret Pep 1187 pg/mL (0-900) H 10/10/20 10:46 Total Protein 7.2 g/dL (6.3-8.2) 10/10/20 18:18 Albumin 3.9 g/dL (3.9-5) 10/10/20 18:18 Albumin/Globulin Ratio 1.2 % 10/10/20 18:18 Triglycerides 129 mg/dL (2-149) 10/10/20 18:18 Cholesterol 138 mg/dL (50-199) 10/10/20 18:18 LDL Cholesterol Direct 76 mg/dL (50-130) 10/10/20 18:18 HDL Cholesterol 49 mg/dL (40-59) 10/10/20 18:18 Cholesterol/HDL Ratio 2.81 % 10/10/20 18:18 Procalcitonin 0.09 ng/mL (<0.15) 10/10/20 10:48 TSH 6.260 mlU/mL (0.270-4.200) H 10/10/20 10:46 Arterial Blood Glucose 115 mg/dL (65-95) H 10/10/20 15:50 Arterial Blood Ionized Calcium 4.8 mg/dL (4.6-5.3) 10/10/20 15:50 Urine Color Yellow (Yellow) 10/10/20 10:50 Urine Turbidity Clear (Clear) 10/10/20 10:50 Urine pH 7.0 (5.0-7.0) 10/10/20 10:50 Ur Specific [place] 1.016 (1.003-1.030) 10/10/20 10:50 Urine Protein 100 mg/dl mg/dL (Negative) 10/10/20 10:50 Urine Glucose (UA) Neg mg/dL (Negative) 10/10/20 10:50 Urine Ketones Neg mg/dL (Negative) 10/10/20 10:50 Urine Blood Neg (Negative) 10/10/20 10:50 Urine Nitrite Neg (Negative) 10/10/20 10:50 Urine Bilirubin Neg (Negative) 10/10/20 10:50 Urine Urobilinogen < 2.0 mg/dL (<2.0) 10/10/20 10:50 Ur Leukocyte Esterase Tr (Negative) 10/10/20 10:50 Urine WBC (Auto) 2.0 /HPF (0.0-6.0) 10/10/20 10:50 Urine RBC (Auto) 16.0 /HPF (0.0-6.0) 10/10/20 10:50 U Epithel Cells (Auto) 1.0 /HPF (0-13.0) 10/10/20 10:50 Urine Opiates Screen Negative 10/10/20 10:50 Urine Methadone Screen Negative 10/10/20 10:50 Ur Barbiturates Screen Negative 10/10/20 10:50 Ur Phencyclidine Scrn Negative 10/10/20 10:50 Ur Amphetamines Screen Negative 10/10/20 10:50 U Benzodiazepines Scrn Negative 10/10/20 10:50 Urine Cocaine Screen Negative 10/10/20 10:50 U Marijuana (THC) Screen Positive 10/10/20 10:50 Drugs of Abuse Note Disclamer 10/10/20 10:50 Plasma/Serum Alcohol < 0.01 % (0-0.07) 10/10/20 10:48 Blood Type AB POSITIVE 10/10/20 10:48 Antibody Screen Negative 10/10/20 10:48 Short CBC 10/10/20 10/10/20 Range/Units 10:48 18:18 WBC 10.3 23.0 H (4.5-11.0) K/mm3 Hgb 15.5 H 15.1 (11.8-15.2) gm/dl Hct 48.8 H 45.4 (35.5-45.6) % Plt Count 239 240 (140-440) K/mm3 BMP 10/10/20 10/10/20 10:48 18:18 Sodium 142 146 H Potassium 3.3 L 4.0 D Chloride 91.2 L 99.6 Carbon Dioxide 22 34 H D BUN 19 27 H Creatinine 1.8 H 2.7 H Glucose 231 H 102 H Calcium 9.2 8.9 Cardiac Enzymes 10/10/20 10/10/20 Range/Units 10:48 18:18 Total Creatine Kinase 1192 H (55-170) units/L CK-MB (CK-2) 21.7 H (0.0-4.0) ng/mL Troponin T 0.017 0.377 H* D (0.00-0.029) ng/mL Liver Function 10/10/20 10/10/20 Range/Units 10:48 18:18 Total Bilirubin 0.40 0.40 (0.1-1.2) mg/dL AST 60 H 90 H (5-40) units/L ALT 57 H 66 H (7-56) units/L Alkaline Phosphatase 76 65 (35-129) units/L Albumin 4.5 3.9 (3.9-5) g/dL Urine 10/10/20 Range/Units 10:50 Urine Color Yellow (Yellow) Urine pH 7.0 (5.0-7.0) Ur Specific [place] 1.016 (1.003-1.030) Urine Protein 100 mg/dl (Negative) mg/dL Urine Glucose (UA) Neg (Negative) mg/dL Short CBC 10/10/20 10/10/20 10/11/20 Range/Units 10:48 18:18 02:00 WBC 10.3 23.0 H 17.3 H (4.5-11.0) K/mm3 Hgb 15.5 H 15.1 13.9 (11.8-15.2) gm/dl Hct 48.8 H 45.4 40.8 (35.5-45.6) % Plt Count 239 240 175 (140-440) K/mm3 BMP 10/10/20 10/10/20 10/11/20 10:48 18:18 02:00 Sodium 142 146 H 149 H Potassium 3.3 L 4.0 D 3.3 L Chloride 91.2 L 99.6 95.3 L Carbon Dioxide 22 34 H D 37 H BUN 19 27 H 29 H Creatinine 1.8 H 2.7 H 2.6 H Glucose 231 H 102 H 92 Calcium 9.2 8.9 8.7 Cardiac Enzymes 10/10/20 10/10/20 10/10/20 Range/Units 10:48 18:18 22:49 Total Creatine Kinase 1192 H (55-170) units/L CK-MB (CK-2) 21.7 H (0.0-4.0) ng/mL Troponin T 0.017 0.377 H* D 0.273 H* D (0.00-0.029) ng/mL 10/11/20 Range/Units 02:00 Total Creatine Kinase (55-170) units/L CK-MB (CK-2) (0.0-4.0) ng/mL Troponin T 0.201 H* D (0.00-0.029) ng/mL Liver Function 10/10/20 10/10/20 10/11/20 Range/Units 10:48 18:18 02:00 Total Bilirubin 0.40 0.40 0.60 (0.1-1.2) mg/dL AST 60 H 90 H 80 H (5-40) units/L ALT 57 H 66 H 59 H (7-56) units/L Alkaline Phosphatase 76 65 52 (35-129) units/L Albumin 4.5 3.9 3.6 L (3.9-5) g/dL Urine 10/10/20 Range/Units 10:50 Urine Color Yellow (Yellow) Urine pH 7.0 (5.0-7.0) Ur Specific [place] 1.016 (1.003-1.030) Urine Protein 100 mg/dl (Negative) mg/dL Urine Glucose (UA) Neg (Negative) mg/dL Microbiology: Microbiology 10/10/20 Unknown Tracheal Aspirate Sputum Culture - Preliminary 10/10/20 10:48 Peripheral/Venous Blood Culture - Preliminary Culture in Progress 10/10/20 10:46 Peripheral/Venous Blood Culture - Preliminary Culture in Progress - Imaging and Cardiology EKG: report reviewed Chest x-ray: report reviewed Imaging and Cardiology: Chest x-ray Endotracheal tube in satisfactory position Pulmonary findings as above--moderate patchy airspace disease greatest in throughout the right lung but to lesser extent centrally in the left lung as could be seen with asymmetric edema or patchy multifocal airspace disease Tuttle/IV: Voiding Method Indwelling Catheter Assessment and Plan Assessment and plan: Critical care statement The high probability OF a clinically significant sudden or life-threatening deterioration of the cardiorespiratory system and endocrine system required my full and direct attention, intervention and postoperative management. The aggregate critical care time was 40 minutes. The time is in addition to time spent performing reported procedures but includes the followin: Data review and interpretation 2: Patient assessment and monitoring of vital signs 3: Documentation 4:: Medication orders and management Advance Directives: Yes (Full code) VTE prophylaxis?: Chemical Plan of care discussed with patient/family: Yes - Patient Problems (1) Cardiac arrest Current Visit: Yes Status: Acute Plan to address problem: Patient required s/p cardiac arrest x2 in the emergency room Patient is hypertensive and bradycardic Patient intubated and central line placed (2) Acute respiratory failure with hypoxia and hypercarbia Current Visit: Yes Status: Acute Plan to address problem: Patient intubated and continue vent support Statistics Tutor consult appreciated (3) MOE (acute kidney injury) Current Visit: Yes Status: Acute Plan to address problem: IV fluids for now (4) Lactic acidosis Current Visit: Yes Status: Acute Plan to address problem: Possible sepsis versus lactic acid elevation secondary to cardiac arrest We'll treat with broad-spectrum antibiotics especially cefepime and vancomycin (5) Bilateral pneumonia Current Visit: Yes Status: Acute Plan to address problem: Possible Covid pneumonia Treat as community-acquired pneumonia for now Threesepsis for now Pressors for now ID consult requested (6) Pneumonia due to COVID-19 virus Current Visit: Yes Status: Acute Plan to address problem: A high possibility Coronavirus PCR to be done IV Decadron initiated (7) Hypotension Current Visit: Yes Status: Acute (8) Sepsis with hypotension Current Visit: Yes Status: Acute Plan to address problem: Treat sepsis and hypotension with broad-spectrum antibiotics and pressors (9) Hypokalemia Current Visit: Yes Status: Acute Plan to address problem: Supplemented (10) DVT prophylaxis Current Visit: Yes Status: Acute Plan to address problem: On heparin and GI prophylaxis
[2020-10-10] MEDS ORDERED: METOCLOPRAMIDE 10 MG/2 ML INJ IV PRN (21:51)
[2020-10-10] MEDS ORDERED: SODIUM CHLORIDE 0.9% 1000 ML 1,000 ML IV SCH (22:00)
[2020-10-10] MEDS ORDERED: FAMOTIDINE 20 MG/2 ML INJ IV SCH (22:00)
[2020-10-10] MEDS ORDERED: LIPASE 10,500/PROTEASE 25,000/AMYLASE 43,750 (UNITS) DR CAP FEEDTUBE PRN (22:18)
[2020-10-10] MEDS ORDERED: SODIUM BICARBONATE 325 MG TAB FEEDTUBE PRN (22:18)
[2020-10-10] MEDS ORDERED: SIMPLE SYRUP 15 ML FEEDTUBE PRN ×2 (22:18)
[2020-10-10] MEDS: FAMOTIDINE 20 MG/2 ML INJ IV SCH (22:22)
[2020-10-10] MEDS ORDERED: VANCOMYCIN 2,000 MG in SODIUM CHLORIDE 0.9% 500 ML 500 ML IV ONE (22:30)
[2020-10-10] MEDS ORDERED: CEFEPIME/NS 1 GM/100 ML 1 GM/100 ML BAG IV SCH ×2 (23:00)
[2020-10-10] MEDS ORDERED: VANCOMYCIN PHARMACY TO DOSE IV SCH (23:00)
[2020-10-10] MEDS ORDERED: dexAMETHasone 4 MG/ML VIAL IV SCH (23:00)
[2020-10-11] MEDS: SODIUM BICARBONATE IV SCH (01:50)
[2020-10-11 03:12] LABS: Hematocrit 40.8 % (35.5-45.6)
[2020-10-11 03:22] LABS: Albumin 3.6 g/dL (3.9-5); Calcium 8.7 mg/dL (8.4-10.2)
--- NOTE | 2020-10-11 03:43 | XRay Report ---
CHEST 1 VIEW INDICATION: follow up respiratory failure COMPARISON: One day prior. FINDINGS: Support devices: Unchanged. Heart: Stable. Lungs/Pleura: Bilateral pulmonary disease is slightly improved. IMPRESSION: 1. Slight improvement. Signer Name: Babatunde Ortega MD Signed: 10/11/2020 3:38 AM Workstation Name: [id number]
[2020-10-11 03:46] LABS: Hemoglobin 13.9 gm/dl (11.8-15.2); Mean Corpuscular HGB Conc 34 % (32-34); Mean Corpuscular Volume 86 fl (84-94); Platelet Count 175 K/mm3 (140-440); Red Blood Count 4.72 M/mm3 (3.65-5.03); Red Cell Distribution Width 14.7 % (13.2-15.2)
[2020-10-11] MEDS: hydrALAZINE 20 MG/1 ML INJ IV PRN (03:49)
[2020-10-11 04:00] LABS: Basophils % (Auto) 0.1 % (0.0-1.8); Lymphocytes # (Auto) 0.7 K/mm3 (1.2-5.4); Lymphocytes % (Auto) 3.9 % (13.4-35.0); Monocytes # (Auto) 0.5 K/mm3 (0.0-0.8)
[2020-10-11] MEDS: FUROSEMIDE 100 MG in SODIUM CHLORIDE 0.9% 90 ML IV SCH ×2 (05:50→08:37)
[2020-10-11] MEDS ORDERED: LIPASE 10,500/PROTEASE 25,000/AMYLASE 43,750 (UNITS) DR CAP FEEDTUBE PRN (06:47)
[2020-10-11] MEDS ORDERED: SODIUM BICARBONATE 325 MG TAB FEEDTUBE PRN (06:47)
[2020-10-11] MEDS ORDERED: SIMPLE SYRUP 15 ML FEEDTUBE PRN ×2 (06:47)
[2020-10-11] MEDS: POTASSIUM CHLORIDE 10 MEQ 10 MEQ/100 ML BAG IV SCH ×4 (08:21→11:04)
--- NOTE | 2020-10-11 08:33 | Consultation ---
History of Present Illness - Reason for Consult Consult date: 10/11/20 acute renal failure - History of Present Illness The pt is a 55 YO AAM with medical history significant for Morbid obesity, Hypertension and Asthma who presented to [facility] ED 10/10 after Covid vaccine and passed out with seizure like activity in the car at the emergency room bay. Patient was found to be unresponsive and with no pulse. ACLS protocol was initiated from the car to the emergency room with continued ACLS protocol. Patient was intubated and after couple of Epi ROSC obtained. Central line was placed and patient was also started on pressors. Patient coded twice in the emergency room, one before the imaging studies and once after the imaging studies. Patient did not have any fever, shortness of breath, cough or any symptoms prior to the COVID-19 vaccination. Patient was not able to provide any history from patient and there was no family member at the bedside. He was on Levophed overnight. Labs significant for Creat 2.6, BUN 29, K 3.3, bicarb 37 and Sodium 149. Nephrology was consulted for further evaluation. Past History Past Medical History: other (See HPI.) Medications and Allergies Allergies Allergy/AdvReac Type Severity Reaction Status Date / Time No Known Allergies Allergy Unverified 07/06/13 15:19 Home Medications Medication Instructions Recorded Confirmed Last Taken Type Albuterol Sulfate [Ventolin HFA] 2 puff IH Q4H PRN #1 hfa.[email or web address] 07/06/13 Unknown Rx Prednisone 40 mg PO QDAY #8 tablet 07/06/13 Unknown Rx Albuterol Mdi (or & Nicu Only) 2 puff IH Q4H PRN #1 inha 07/07/13 Unknown Rx [ProAir HFA Inhaler] Azithromycin [Zithromax Z-KYLE] 500 mg PO QDAY #5 tab 07/07/13 Unknown Rx HYDROcodone/APAP 5-325 [Revloc 2 each PO Q6H PRN #30 tablet 07/07/13 Unknown Rx 5-325 mg TAB] predniSONE [Deltasone] 40 mg PO QDAY #10 tablet 07/07/13 Unknown Rx Active Meds: Active Medications Acetaminophen (Acetaminophen 325 Mg Tab) 650 mg PO Q4H PRN PRN Reason: Pain MILD(1-3)/Fever >100.5/SALVADOR Lipase/Protease/Amylase (Lipase 10,500/Protease 25,000/Amylase 43,750 (Units) Dr Cap) 1 each FEEDTUBE PRN PRN PRN Reason: For Clogged Feeding Tube Dexamethasone (Dexamethasone 4 Mg/Ml Vial) 8 mg IV Q24HR@2200 PEPITO Last Admin: 10/10/20 22:43 Dose: 8 mg Documented by: Famotidine (Famotidine 20 Mg/2 Ml Inj) 20 mg IV DAILY PEPITO Last Admin: 10/10/20 22:22 Dose: 20 mg Documented by: Heparin Sodium (Porcine) (Heparin 10,000 Units/10 Ml Vial) 5,600 unit 40 unit/kg (5600 unit) IV Q6H PRN PRN Reason: Anti-Xa Assay < 0.1 units/ml Hydralazine HCl (Hydralazine 20 Mg/1 Ml Inj) 5 mg IV Q4HR PRN PRN Reason: Hypertension Last Admin: 10/11/20 03:49 Dose: 5 mg Documented by: Hydromorphone HCl (Hydromorphone 1 Mg/1 Ml Inj) 0.5 mg IV Q3H PRN PRN Reason: Pain , Severe (7-10) Hydrophilic Ointment (Lip Therapy Vaseline) 1 applic TP Q2HR PRN PRN Reason: Dry Lips Propofol (Diprivan 10 Mg/Ml) 1,000 mg in 100 mls @ 4.23 mls/hr IV TITR PEPITO; Protocol Last Admin: 10/11/20 06:55 Dose: 30 mcg/kg/min, 25.38 mls/hr Documented by: Nitroglycerin/Dextrose (Tridil Drip 50mg/250ml) 50 mg in 250 mls @ 3 mls/hr IV TITR PEPITO; Protocol Last Titration: 10/10/20 13:17 Dose: 0 mcg/min, 0 mls/hr Documented by: Norepinephrine 8 mg/ Sodium (Chloride) 250 mls @ 3.75 mls/hr IV TITRATE PEPITO; Protocol Last Titration: 10/10/20 22:15 Dose: 0 mcg/min, 0 mls/hr Documented by: Furosemide 100 mg/ Sodium (Chloride) 100 mls @ 5 mls/hr IV TITR PEPITO; Protocol Last Admin: 10/11/20 05:50 Dose: 5 mg/hr, 5 mls/hr Documented by: Heparin Sodium/Sodium Chloride (Heparin/ 0.45% Nacl-25,000 Unit/500 Ml) 25,000 unit in 500 mls @ 20 mls/hr IV TITRATE PEPITO; Protocol Last Titration: 10/11/20 02:59 Dose: 850 units/hr, 17 mls/hr Documented by: Epinephrine 8 mg/ Sodium (Chloride) 250 mls @ 3.75 mls/hr IV DIRECT PEPITO; P rotocol Potassium Chloride (Kcl 10meq/100ml) 10 meq in 100 mls @ 100 mls/hr IV Q1H PEPITO Stop: 10/11/20 10:59 Last Admin: 10/11/20 08:21 Dose: 100 mls/hr Documented by: Cefepime HCl (Cefepime/Ns 2 Gm/100 Ml) 2 gm in 100 mls @ 200 mls/hr IV Q12H PEPITO; Protocol Metoclopramide HCl (Metoclopramide 10 Mg/2 Ml Inj) 10 mg IV Q6H PRN PRN Reason: Nausea And Vomiting Morphine Sulfate (Morphine/Ns 30 Mg-30 Ml Clinique Counter Manager Inj) 0 mg IV DIRECT PEPITO; Protocol Multi-Ingred Cream/Lotion/Oil/Oint (Mineral Oil/Petrolatum, White Ophth Oint 3.5 Gm) 1 applic OU Q4HR PRN PRN Reason: Dry Eye(s) Naloxone HCl (Naloxone 0.4 Mg/1 Ml Inj) 0.1 mg IV Q2MIN PRN PRN Reason: Res Rate </= 8 or 02 SAT < 92% Ondansetron HCl (Ondansetron 4 Mg/2 Ml Inj) 4 mg IV Q3H PRN PRN Reason: Nausea And Vomiting Simple Syrup (Simple Syrup 15 Ml) 15 ml FEEDTUBE PRN PRN PRN Reason: Hypoglycemia Simple Syrup (Simple Syrup 15 Ml) 30 ml FEEDTUBE PRN PRN PRN Reason: Hypoglycemia Sodium Bicarbonate (Sodium Bicarbonate 325 Mg Tab) 325 mg FEEDTUBE PRN PRN PRN Reason: For Clogged Feeding Tube Sodium Chloride (Sodium Chloride 0.9% 10 Ml Flush Syringe) 10 ml IV BID PEPITO Last Admin: 10/10/20 22:22 Dose: 10 ml Documented by: Sodium Chloride (Sodium Chloride 0.9% 10 Ml Flush Syringe) 10 ml IV PRN PRN PRN Reason: LINE FLUSH Review of Systems ROS unobtainable: due to mental status Exam - Vital Signs Vital signs: Vital Signs Pulse Resp BP 119 H 26 H 228/162 10/10/20 10:34 10/10/20 10:34 10/10/20 10:34 Results - Lab Results 10/12/20 05:10 10/12/20 04:00 Most recent lab results ABG pH 7.491 (7.320-7.450) H 10/11/20 03:51 ABG pCO2 75.3 mm Hg 10/10/20 15:50 ABG pO2 60.3 mm Hg (80.0-90.0) L 10/10/20 15:50 ABG HCO3 32.0 mmol/L (20.0-26.0) H 10/10/20 15:50 ABG O2 Saturation 98.3 (0-100) 10/11/20 03:51 Calcium 8.7 mg/dL (8.4-10.2) 10/11/20 02:00 Assessment and Plan 1. Acute kidney injury: Vasomotor MOE in the setting of Cardiac arrest and shock. Urine studies and Renal US ordered. Monitor renal function. Creatinine continue to increase. Renal prognosis is guarded. Avoid nephrotoxic agents. Meds dosage based on GFR. Monitor for DELINEATOR needs. 2. FEN: Volume overload, on Lasix drip, monitor. Hypokalemia, replete K, monitor. Metabolic alkalosis, monitor, diamox as needed. Monitor lytes and volume status. 3. Acute hypoxic respiratory failure, POA: 2/2 PNA and CHF. COVID PUI. Intubated on vent. 4. Sepsis, POA: 2/2 PNA. Abx. 5. NSTEMI type II: Post cardiac arrest EKG showed no acute ischemic changes. Heparin gtt. Followed by Cards. 6. Acute CHF: Echo showed Normal EF and mild DD. 7. S/p Cardiac arrest. 8. GI bleed. 9. Elevated Transaminases: Trend. 10. HTN: Trend. Subjective: Patient was seen and examined at the bedside. Objective: General appearance: well-developed, appears stated age, intubated, on vent HEENT: ATNC, MONTSE Neck: trachea midline Respiratory: ctab Heart: regular, S1S2, no murmur Gastrointestinal: soft, normoactive bowel sounds, not tender Integumentary: no rash, warm and dry Ext: no edema Neurologic: not responding Musculoskeletal: no obvious deformity : Tuttle catheter
[2020-10-11] MEDS: FAMOTIDINE 20 MG/2 ML INJ IV SCH (09:13)
[2020-10-11] MEDS ORDERED: FAMOTIDINE 20 MG/2 ML INJ IV SCH (10:00)
[2020-10-11] MEDS: CEFEPIME/NS 2 GM/100 ML 2 GM/100 ML BAG IV SCH ×2 (10:15→22:08)
[2020-10-11] MEDS: ACETAMINOPHEN 650 MG RECT SUPP PR PRN (12:05)
--- NOTE | 2020-10-11 12:45 | Progress Note ---
Assessment and Plan Cardiac arrest x3 with ROSC Severe septic and cardiogenic shock Acute respiratory failure with hypoxemia and hypercarbia Acute pulmonary edema MOE (acute kidney injury) Lactic acidosis, severe metabolic acidosis Bilateral pneumonia, aspiration pneumonia Elevated troponins - repeat CBC +/- resume IV heparin - get bilateral lower extremitry dopplers to evaluate for VTE - follow COVID test result - continuye empiric anti-infective's per ID rec's - follow clinically re: fevers / WBC - begin trickle feeding @ 10 mls/hr in am if H&H stable (suspect NGT bleeding was danay-insertion trauma as nopw clear) - reduce set ratew to 25/min - continue IV furosemide infusion; follow I's & O's / electrolytes - IV heparin for elevated troponins with possible NSTEMI. (on hold now re: ? G.I. Bleed) - Monitor hemodynamics closely - complete AB's per ID rec's - Right femoral a-line placed for invasive hemodynamic monitoring - daily SAT's and SBT assessment as tolerated - wean supplemental oxygen for target O2 sat's > 92% acutely - VAP bundle addressed - continue lung protective strategies - bronchodilators with pulmonary hygiene per RT - wean per pulmonary driven protocols otherwise - Monitor urine output closely - bicarbonate infusion - avoid nephrotoxins, renally dose all medications - continue to avoid benzodiazepine's, reduce the possibility of delirium - continue Scopolamine for secretion control - continue wound care per RN/WCN - prn analgesia per CPOT score - Maintenance of sleep-wake cycle, avoid delirium - continue enteral nutritional support at goal rate as tolerated - G.I. & VTE prophylaxis - PT/OT/ROM exercises - continue mobility protocols for pressure ulcer prophylaxis - Monitor hemodynamics closely - continue other care per attending / other consultants - discharge planning ongoing concurrently COVID SPECIFIC INTERVENTIONS (Await test result) - Remdesivir as per ID/Pulmonary developed protocols - continue systemic steroids for severe COVID-19 infection empirically - follow repeat COVID tests results - zinc and vitamin C supplementation - Monitor inflammatory markers per facility protocol - ferritin, Ddimer, CRP - therapeutic anticoagulation per system Protocol based on d-dimer and clinical considerations - Continue contact and airborne isolation .... Re-evaluate in am & prn CONDITION: CRITICAL PROGNOSIS: GUARDED CODE STATUS: FULL CODE The high probability of a clinically significant, sudden or life-threatening deterioration of the [respiratory, cardiovascular & neurologic] system(s) required my full and direct attention, intervention and personal management. The aggregate critical care time was [34] minutes without overlap. Time includes spent on; [x] Data Review and interpretation [x] Patient assessment and monitoring of vital signs [x] Documentation [x] Medication orders and management Subjective Date of service: 10/11/20 Principal diagnosis: Cardiac arrest; Septic Shock; Ac. hypoxemic & hypercapnic resp failure; MOE Interval history: Patient is seen today for: Cardiac arrest with ROSC; Severe septic and cardiogenic shock; Acute respiratory failure with hypoxemia and hypercarbia; Acute pulmonary edema; MOE; Lactic acidosis; severe metabolic acidosis; Bilateral pneumonia; aspiration pneumonia; Elevated troponins Seen and examined at bedside; 24hour events reviewed; nursing and respiratory care staff consulted; no adverse overnight events reported to me; resting peacefully in bed; AMS is persistent during SAT's but also remains on Propofol; no emesis or overt aspiration; some bleeding noted from NGT earlier and IV heparin stopped; no other gross bleeding noted; now off vasopressors today Objective Vital Signs - 12hr 10/11/20 10/11/20 10/11/20 00:50 01:00 01:10 Temperature Pulse Rate 84 82 85 Pulse Rate [ From Monitor] Respiratory 30 H 32 H 30 H Rate Blood Pressure 128/82 134/81 141/83 O2 Sat by Pulse 98 97 97 Oximetry 10/11/20 10/11/20 10/11/20 01:20 01:30 01:40 Temperature Pulse Rate 82 83 84 Pulse Rate [ From Monitor] Respiratory 30 H 30 H 30 H Rate Blood Pressure 134/86 143/87 144/86 O2 Sat by Pulse 97 97 98 Oximetry 10/11/20 10/11/20 10/11/20 01:50 02:00 02:10 Temperature Pulse Rate 83 87 83 Pulse Rate [ From Monitor] Respiratory 30 H 30 H 30 H Rate Blood Pressure 138/80 139/85 140/84 O2 Sat by Pulse 100 100 Oximetry 10/11/20 10/11/20 10/11/20 02:20 02:30 02:40 Temperature Pulse Rate 87 87 86 Pulse Rate [ From Monitor] Respiratory 30 H 30 H 30 H Rate Blood Pressure 137/84 144/88 141/87 O2 Sat by Pulse 100 94 98 Oximetry 10/11/20 10/11/20 10/11/20 02:50 03:00 03:10 Temperature Pulse Rate 88 86 89 Pulse Rate [ From Monitor] Respiratory 30 H 30 H 30 H Rate Blood Pressure 147/85 145/81 143/89 O2 Sat by Pulse 97 100 100 Oximetry 10/11/20 10/11/20 10/11/20 03:20 03:22 03:30 Temperature 99.5 F Pulse Rate 91 H 93 H Pulse Rate [ From Monitor] Respiratory 30 H 30 H Rate Blood Pressure 135/96 144/87 O2 Sat by Pulse 97 97 Oximetry 10/11/20 10/11/20 10/11/20 03:40 03:49 03:50 Temperature Pulse Rate 94 H 95 H 100 H Pulse Rate [ From Monitor] Respiratory 30 H 30 H Rate Blood Pressure 163/100 176/97 157/95 O2 Sat by Pulse 98 98 Oximetry 10/11/20 10/11/20 10/11/20 03:59 04:00 04:10 Temperature Pulse Rate 92 H 100 H 104 H Pulse Rate [ 95 H From Monitor] Respiratory 30 H 30 H Rate Blood Pressure 174/111 182/102 O2 Sat by Pulse 98 99 Oximetry 10/11/20 10/11/20 10/11/20 04:20 04:30 04:40 Temperature Pulse Rate 108 H 116 H 106 H Pulse Rate [ From Monitor] Respiratory 30 H 30 H 30 H Rate Blood Pressure 186/99 182/101 170/91 O2 Sat by Pulse 99 99 99 Oximetry 10/11/20 10/11/20 10/11/20 04:50 05:00 05:06 Temperature Pulse Rate 112 H 110 H 111 H Pulse Rate [ From Monitor] Respiratory 30 H 31 H Rate Blood Pressure 175/99 178/101 163/100 O2 Sat by Pulse 96 99 99 Oximetry 10/11/20 10/11/20 10/11/20 05:10 05:20 05:30 Temperature Pulse Rate 112 H 111 H 112 H Pulse Rate [ From Monitor] Respiratory 31 H 31 H 30 H Rate Blood Pressure 179/105 170/95 169/109 O2 Sat by Pulse 99 99 96 Oximetry 10/11/20 10/11/20 10/11/20 05:40 05:50 06:00 Temperature Pulse Rate 111 H 111 H 110 H Pulse Rate [ From Monitor] Respiratory 31 H 30 H 30 H Rate Blood Pressure 158/107 171/99 160/100 O2 Sat by Pulse 94 99 95 Oximetry 10/11/20 10/11/20 10/11/20 06:10 06:20 06:30 Temperature Pulse Rate 110 H 110 H 109 H Pulse Rate [ From Monitor] Respiratory 30 H 30 H 26 H Rate Blood Pressure 152/101 163/93 167/94 O2 Sat by Pulse 98 98 98 Oximetry 10/11/20 10/11/20 10/11/20 06:40 06:50 07:00 Temperature Pulse Rate 111 H 113 H 109 H Pulse Rate [ From Monitor] Respiratory 30 H 27 H 30 H Rate Blood Pressure 161/90 163/90 161/89 O2 Sat by Pulse 99 93 Oximetry 10/11/20 10/11/20 10/11/20 07:10 07:20 07:30 Temperature Pulse Rate 107 H 110 H 109 H Pulse Rate [ From Monitor] Respiratory 30 H 30 H 30 H Rate Blood Pressure 179/87 164/92 166/87 O2 Sat by Pulse 99 96 95 Oximetry 10/11/20 10/11/20 10/11/20 07:40 07:50 08:00 Temperature 99.4 F Pulse Rate 110 H 108 H 107 H Pulse Rate [ 107 H From Monitor] Respiratory 30 H 30 H 30 H Rate Blood Pressure 164/86 178/91 153/87 O2 Sat by Pulse 96 98 95 Oximetry 10/11/20 10/11/20 10/11/20 08:10 08:20 08:30 Temperature Pulse Rate 108 H 111 H 110 H Pulse Rate [ From Monitor] Respiratory 30 H 30 H 30 H Rate Blood Pressure 161/86 159/88 160/96 O2 Sat by Pulse 92 94 98 Oximetry 10/11/20 10/11/20 10/11/20 08:40 08:50 09:00 Temperature Pulse Rate 113 H 114 H 114 H Pulse Rate [ From Monitor] Respiratory 27 H 30 H 31 H Rate Blood Pressure 172/91 172/91 172/91 O2 Sat by Pulse 96 98 97 Oximetry 10/11/20 10/11/20 10/11/20 09:10 09:20 09:30 Temperature Pulse Rate 114 H 115 H 112 H Pulse Rate [ From Monitor] Respiratory 31 H 30 H 30 H Rate Blood Pressure 176/98 176/98 163/92 O2 Sat by Pulse 97 97 100 Oximetry 10/11/20 10/11/20 10/11/20 09:40 09:50 10:00 Temperature Pulse Rate 110 H 108 H 107 H Pulse Rate [ From Monitor] Respiratory 30 H 30 H 30 H Rate Blood Pressure 163/92 163/92 157/85 O2 Sat by Pulse 98 98 94 Oximetry 10/11/20 10/11/20 10/11/20 10:10 10:20 10:30 Temperature Pulse Rate 111 H 109 H 110 H Pulse Rate [ From Monitor] Respiratory 30 H 30 H 30 H Rate Blood Pressure 157/85 157/85 157/85 O2 Sat by Pulse 98 98 96 Oximetry 10/11/20 10/11/20 10/11/20 10:40 10:50 11:36 Temperature Pulse Rate 108 H 107 H 103 H Pulse Rate [ From Monitor] Respiratory 30 H 30 H Rate Blood Pressure 164/90 152/88 O2 Sat by Pulse 98 98 96 Oximetry 10/11/20 12:00 Temperature 102.6 F H Pulse Rate Pulse Rate [ From Monitor] Respiratory Rate Blood Pressure O2 Sat by Pulse Oximetry Constitutional: no acute distress, other (middle aged obese male with mildly increased respiratory efort at rest) Eyes: non-icteric ENT: oropharynx moist, other (ETT 23 cm ANNIE) Neck: supple, no lymphadenopathy, no JVD Effort: normal Ascultation: Bilateral: diminished breath sounds, rhonchi (scant) Percussion: Bilateral: not dull Cardiovascular: regular rate and rhythm Gastrointestinal: normoactive bowel sounds, soft, non-tender, non-distended Integumentary: normal Extremities: no cyanosis, no edema, pulses normal, no ischemia or petechiae Neurologic: pupils equal and round, unable to assess Psychiatric: other (unable to assess re: AMS) CBC and BMP: 10/11/20 13:30 10/11/20 02:00 ABG, PT/INR, D-dimer: ABG ABG pH 7.491 (7.320-7.450) H 10/11/20 03:51 POC ABG pCO2 57.6 mmHg (32.0-48.0) H 10/11/20 03:51 ABG pCO2 75.3 mm Hg 10/10/20 15:50 POC ABG pO2 106.1 mmHg (83-108) 10/11/20 03:51 ABG pO2 60.3 mm Hg (80.0-90.0) L 10/10/20 15:50 POC ABG HCO3 43 10/11/20 03:51 ABG O2 Saturation 98.3 (0-100) 10/11/20 03:51 PT/INR, D-dimer PT 13.8 Sec. (12.2-14.9) 10/10/20 18:18 INR 1.07 (0.87-1.13) 10/10/20 18:18 D-Dimer 679.5 ng/mlDDU (0-234) H 10/10/20 10:48 Abnormal lab findings: Abnormal Labs 10/10/20 10/10/20 10/10/20 10:46 10:46 10:46 WBC RBC Hgb Hct Lymph % (Auto) Lymph # (Auto) Seg Neutrophils % Lymphocytes % (Manual) Monocytes % (Manual) Seg Neutrophils # Seg Neutrophils # Man Lymphocytes # (Manual) Monocytes # (Manual) D-Dimer Heparin Anti-Xa Level ABG pH POC ABG pCO2 POC ABG pO2 ABG pO2 ABG HCO3 ABG O2 Saturation ABG Oxyhemoglobin ABG Sodium ABG Potassium ABG Chloride ABG Glucose VBG pH Oxyhemoglobin Sodium Potassium Chloride Carbon Dioxide BUN Creatinine Glucose POC Glucose Lactic Acid 13.60 H* AST ALT Ammonia 214.0 H Lactate Dehydrogenase Total Creatine Kinase CK-MB (CK-2) Troponin T NT-Pro-B Natriuret Pep Total Protein Albumin TSH 6.260 H Arterial Blood Glucose Arterial Blood Ionized Calcium 10/10/20 10/10/20 10/10/20 10:46 10:48 10:48 WBC RBC 5.28 H Hgb 15.5 H Hct 48.8 H Lymph % (Auto) Lymph # (Auto) Seg Neutrophils % Lymphocytes % (Manual) 42.0 H Monocytes % (Manual) Seg Neutrophils # Seg Neutrophils # Man Lymphocytes # (Manual) Monocytes # (Manual) D-Dimer Heparin Anti-Xa Level ABG pH POC ABG pCO2 POC ABG pO2 ABG pO2 ABG HCO3 ABG O2 Saturation ABG Oxyhemoglobin ABG Sodium ABG Potassium ABG Chloride ABG Glucose VBG pH Oxyhemoglobin Sodium Potassium 3.3 L Chloride 91.2 L Carbon Dioxide BUN Creatinine 1.8 H Glucose 231 H POC Glucose Lactic Acid AST 60 H ALT 57 H Ammonia Lactate Dehydrogenase Total Creatine Kinase CK-MB (CK-2) Troponin T NT-Pro-B Natriuret Pep 1187 H Total Protein 9.0 H Albumin TSH Arterial Blood Glucose Arterial Blood Ionized Calcium 10/10/20 10/10/20 10/10/20 10:48 10:48 10:48 WBC RBC Hgb Hct Lymph % (Auto) Lymph # (Auto) Seg Neutrophils % Lymphocytes % (Manual) Monocytes % (Manual) Seg Neutrophils # Seg Neutrophils # Man Lymphocytes # (Manual) Monocytes # (Manual) D-Dimer 679.5 H Heparin Anti-Xa Level ABG pH POC ABG pCO2 POC ABG pO2 ABG pO2 ABG HCO3 ABG O2 Saturation ABG Oxyhemoglobin ABG Sodium ABG Potassium ABG Chloride ABG Glucose VBG pH 6.870 L* Oxyhemoglobin Sodium Potassium Chloride Carbon Dioxide BUN Creatinine Glucose POC Glucose Lactic Acid AST ALT Ammonia Lactate Dehydrogenase 386 H Total Creatine Kinase CK-MB (CK-2) Troponin T NT-Pro-B Natriuret Pep Total Protein Albumin TSH Arterial Blood Glucose Arterial Blood Ionized Calcium 10/10/20 10/10/20 10/10/20 14:10 14:20 15:50 WBC RBC Hgb Hct Lymph % (Auto) Lymph # (Auto) Seg Neutrophils % Lymphocytes % (Manual) Monocytes % (Manual) Seg Neutrophils # Seg Neutrophils # Man Lymphocytes # (Manual) Monocytes # (Manual) D-Dimer Heparin Anti-Xa Level ABG pH 7.175 L 7.247 L POC ABG pCO2 85.0 H POC ABG pO2 43.7 L ABG pO2 60.3 L ABG HCO3 32.0 H ABG O2 Saturation 86.1 L ABG Oxyhemoglobin 67.7 L ABG Sodium ABG Potassium ABG Chloride ABG Glucose 247 H VBG pH Oxyhemoglobin 84.4 L Sodium Potassium Chloride Carbon Dioxide BUN Creatinine Glucose POC Glucose Lactic Acid 4.00 H* AST ALT Ammonia Lactate Dehydrogenase Total Creatine Kinase CK-MB (CK-2) Troponin T NT-Pro-B Natriuret Pep Total Protein Albumin TSH Arterial Blood Glucose 247 H Arterial Blood Ionized Calcium 4.4 L 10/10/20 10/10/20 10/10/20 15:50 16:22 18:18 WBC RBC Hgb Hct Lymph % (Auto) Lymph # (Auto) Seg Neutrophils % Lymphocytes % (Manual) Monocytes % (Manual) Seg Neutrophils # Seg Neutrophils # Man Lymphocytes # (Manual) Monocytes # (Manual) D-Dimer Heparin Anti-Xa Level ABG pH 7.171 L POC ABG pCO2 96.6 H POC ABG pO2 55.3 L ABG pO2 ABG HCO3 ABG O2 Saturation ABG Oxyhemoglobin 81.4 L ABG Sodium ABG Potassium ABG Chloride ABG Glucose 115 H VBG pH Oxyhemoglobin Sodium Potassium Chloride Carbon Dioxide BUN Creatinine Glucose POC Glucose 132 H Lactic Acid AST ALT Ammonia Lactate Dehydrogenase Total Creatine Kinase 1192 H CK-MB (CK-2) 21.7 H Troponin T 0.377 H* D NT-Pro-B Natriuret Pep Total Protein Albumin TSH Arterial Blood Glucose 115 H Arterial Blood Ionized Calcium 10/10/20 10/10/20 10/10/20 18:18 18:18 22:49 WBC 23.0 H RBC 5.12 H Hgb Hct Lymph % (Auto) Lymph # (Auto) Seg Neutrophils % Lymphocytes % (Manual) 4.0 L Monocytes % (Manual) 9.0 H Seg Neutrophils # Seg Neutrophils # Man 13.8 H Lymphocytes # (Manual) 0.9 L Monocytes # (Manual) 2.1 H D-Dimer Heparin Anti-Xa Level ABG pH POC ABG pCO2 POC ABG pO2 ABG pO2 ABG HCO3 ABG O2 Saturation ABG Oxyhemoglobin ABG Sodium ABG Potassium ABG Chloride ABG Glucose VBG pH Oxyhemoglobin Sodium 146 H Potassium Chloride Carbon Dioxide 34 H D BUN 27 H Creatinine 2.7 H Glucose 102 H POC Glucose Lactic Acid AST 90 H ALT 66 H Ammonia Lactate Dehydrogenase Total Creatine Kinase CK-MB (CK-2) Troponin T 0.273 H* D NT-Pro-B Natriuret Pep Total Protein Albumin TSH Arterial Blood Glucose Arterial Blood Ionized Calcium 10/11/20 10/11/20 10/11/20 02:00 02:00 02:00 WBC 17.3 H RBC Hgb Hct Lymph % (Auto) 3.9 L Lymph # (Auto) 0.7 L Seg Neutrophils % 93.0 H Lymphocytes % (Manual) Monocytes % (Manual) Seg Neutrophils # 16.1 H Seg Neutrophils # Man Lymphocytes # (Manual) Monocytes # (Manual) D-Dimer Heparin Anti-Xa Level ABG pH POC ABG pCO2 POC ABG pO2 ABG pO2 ABG HCO3 ABG O2 Saturation ABG Oxyhemoglobin ABG Sodium ABG Potassium ABG Chloride ABG Glucose VBG pH Oxyhemoglobin Sodium 149 H Potassium 3.3 L Chloride 95.3 L Carbon Dioxide 37 H BUN 29 H Creatinine 2.6 H Glucose POC Glucose Lactic Acid AST 80 H ALT 59 H Ammonia Lactate Dehydrogenase Total Creatine Kinase CK-MB (CK-2) Troponin T 0.201 H* D NT-Pro-B Natriuret Pep Total Protein Albumin 3.6 L TSH Arterial Blood Glucose Arterial Blood Ionized Calcium 10/11/20 10/11/20 03:51 08:35 WBC RBC Hgb Hct Lymph % (Auto) Lymph # (Auto) Seg Neutrophils % Lymphocytes % (Manual) Monocytes % (Manual) Seg Neutrophils # Seg Neutrophils # Man Lymphocytes # (Manual) Monocytes # (Manual) D-Dimer Heparin Anti-Xa Level 0.22 L ABG pH 7.491 H POC ABG pCO2 57.6 H POC ABG pO2 ABG pO2 ABG HCO3 ABG O2 Saturation ABG Oxyhemoglobin ABG Sodium 150.0 H ABG Potassium 3.1 L ABG Chloride 96.0 L ABG Glucose 122 H VBG pH Oxyhemoglobin Sodium Potassium Chloride Carbon Dioxide BUN Creatinine Glucose POC Glucose Lactic Acid AST ALT Ammonia Lactate Dehydrogenase Total Creatine Kinase CK-MB (CK-2) Troponin T NT-Pro-B Natriuret Pep Total Protein Albumin TSH Arterial Blood Glucose 122 H Arterial Blood Ionized Calcium 3.9 L Chest x-ray: image reviewed (ETT in good position; cardiomegaly; bilateral pulmonary infiltrates are moderate) Allied health notes reviewed: nursing
--- NOTE | 2020-10-11 12:54 | Consultation ---
History of Present Illness - Reason for Consult Consult date: 10/11/20 Sepsis Requesting physician: DONA MANRIQUEZ - History of Present Illness The patient is a 55-year-old male with hypertension, asthma, obesity came into the emergency room after receiving the Covid vaccine and passing out in the car at the emergency room bay. Patient was found to be unresponsive with no pulse, ACLS was initiated, patient was intubated and subsequently had return of spont aneous circulation. Patient has been spiking fevers, initial labs did not reveal leukocytosis however subsequently due to concerns for sepsis, infectious diseases was consulted. Pressors have been weaned off. Review of Systems: reviewed in the chart, unable to obtain, minimize risk of transmission Medications and Allergies Allergies Allergy/AdvReac Type Severity Reaction Status Date / Time No Known Allergies Allergy Unverified 07/06/13 15:19 Home Medications Medication Instructions Recorded Confirmed Last Taken Type Albuterol Sulfate [Ventolin HFA] 2 puff IH Q4H PRN #1 hfa.aer.ad 07/06/13 Unknown Rx Prednisone 40 mg PO QDAY #8 tablet 07/06/13 Unknown Rx Albuterol Mdi (or & Nicu Only) 2 puff IH Q4H PRN #1 inha 07/07/13 Unknown Rx [ProAir HFA Inhaler] Azithromycin [Zithromax Z-KYLE] 500 mg PO QDAY #5 tab 07/07/13 Unknown Rx HYDROcodone/APAP 5-325 [[place] 2 each PO Q6H PRN #30 tablet 07/07/13 Unknown Rx 5-325 mg TAB] predniSONE [Deltasone] 40 mg PO QDAY #10 tablet 07/07/13 Unknown Rx Active Meds: Active Medications Acetaminophen (Acetaminophen 325 Mg Tab) 650 mg PO Q4H PRN PRN Reason: Pain MILD(1-3)/Fever >100.5/S[place]OR Acetaminophen (Acetaminophen 650 Mg Rect Supp) 650 mg MT Q6H PRN PRN Reason: Fever >101 Lipase/Protease/Amylase (Lipase 10,500/Protease 25,000/Amylase 43,750 (Units) Dr Santana) 1 each FEEDTUBE PRN PRN PRN Reason: For Clogged Feeding Tube Dexamethasone (Dexamethasone 4 Mg/Ml Vial) 8 mg IV Q24HR@2200 PEPITO Last Admin: 10/10/20 22:43 Dose: 8 mg Documented by: Famotidine (Famotidine 20 Mg/2 Ml Inj) 20 mg IV DAILY PEPITO Last Admin: 10/11/20 09:13 Dose: 20 mg Documented by: Heparin Sodium (Porcine) (Heparin 10,000 Units/10 Ml Vial) 5,600 unit 40 unit/kg (5600 unit) IV Q6H PRN PRN Reason: Anti-Xa Assay < 0.1 units/ml Hydralazine HCl (Hydralazine 20 Mg/1 Ml Inj) 5 mg IV Q4HR PRN PRN Reason: Hypertension Last Admin: 10/11/20 03:49 Dose: 5 mg Documented by: Hydromorphone HCl (Hydromorphone 1 Mg/1 Ml Inj) 0.5 mg IV Q3H PRN PRN Reason: Pain , Severe (7-10) Hydrophilic Ointment (Lip Therapy Vaseline) 1 applic TP Q2HR PRN PRN Reason: Dry Lips Propofol (Diprivan 10 Mg/Ml) 1,000 mg in 100 mls @ 4.23 mls/hr IV TITR PEPITO; Protocol Last Admin: 10/11/20 11:16 Dose: 25 mcg/kg/min, 21.15 mls/hr Documented by: Nitroglycerin/Dextrose (Tridil Drip 50mg/250ml) 50 mg in 250 mls @ 3 mls/hr IV TITR PEPITO; Protocol Last Titration: 10/10/20 13:17 Dose: 0 mcg/min, 0 mls/hr Documented by: Norepinephrine 8 mg/ Sodium (Chloride) 250 mls @ 3.75 mls/hr IV TITRATE PEPITO; Protocol Last Titration: 10/10/20 22:15 Dose: 0 mcg/min, 0 mls/hr Documented by: Furosemide 100 mg/ Sodium (Chloride) 100 mls @ 5 mls/hr IV TITR PEPITO; Protocol Last Admin: 10/11/20 08:37 Dose: 5 mg/hr, 5 mls/hr Documented by: Epinephrine 8 mg/ Sodium (Chloride) 250 mls @ 3.75 mls/hr IV DIRECT PEPITO; Protocol Cefepime HCl (Cefepime/Ns 2 Gm/100 Ml) 2 gm in 100 mls @ 200 mls/hr IV Q12H PEPITO; Protocol Last Admin: 10/11/20 10:15 Dose: 200 mls/hr Documented by: Metoclopramide HCl (Metoclopramide 10 Mg/2 Ml Inj) 10 mg IV Q6H PRN PRN Reason: Nausea And Vomiting Metoprolol Tartrate (Metoprolol Tartrate 5 Mg/5 Ml Inj) 5 mg IV Q6HR PEPITO Morphine Sulfate (Morphine/Ns 30 Mg-30 Ml Water Control Station Engineer Inj) 0 mg IV DIRECT PEPITO; Protocol Multi-Ingred Cream/Lotion/Oil/Oint (Mineral Oil/Petrolatum, White Ophth Oint 3.5 Gm) 1 applic OU Q4HR PRN PRN Reason: Dry Eye(s) Naloxone HCl (Naloxone 0.4 Mg/1 Ml Inj) 0.1 mg IV Q2MIN PRN PRN Reason: Res Rate </= 8 or 02 SAT < 92% Ondansetron HCl (Ondansetron 4 Mg/2 Ml Inj) 4 mg IV Q3H PRN PRN Reason: Nausea And Vomiting Simple Syrup (Simple Syrup 15 Ml) 15 ml FEEDTUBE PRN PRN PRN Reason: Hypoglycemia Simple Syrup (Simple Syrup 15 Ml) 30 ml FEEDTUBE PRN PRN PRN Reason: Hypoglycemia Sodium Bicarbonate (Sodium Bicarbonate 325 Mg Tab) 325 mg FEEDTUBE PRN PRN PRN Reason: For Clogged Feeding Tube Sodium Chloride (Sodium Chloride 0.9% 10 Ml Flush Syringe) 10 ml IV BID PEPITO Last Admin: 10/11/20 09:13 Dose: 10 ml Documented by: Sodium Chloride (Sodium Chloride 0.9% 10 Ml Flush Syringe) 10 ml IV PRN PRN PRN Reason: LINE FLUSH Physical Examination - Physical Exam Narrative exam: Physical Exam (reviewed in chart to minimize risk of transmission) Constitutional: deferred Head, Ears, Nose: deferred Eyes: deferred Neck: deferred Oral: deferred Cardiovascular: deferred Respiratory: deferred GI: deferred Musculoskeletal: deferred Skin: deferred Hem/Lymphatic: deferred Psych: deferred Neurological: deferred - Constitutional Vitals: Vital Signs Temp Pulse Resp BP Pulse Ox 102.6 F H 103 H 30 H 152/88 96 10/11/20 12:00 10/11/20 11:36 10/11/20 10:50 10/11/20 11:36 10/11/20 11:36 Temperature -Last 24 Hours Temperature 102.6 F Temperature 99.4 F Temperature 99.5 F Temperature 99.7 F Temperature 98.7 F Temperature 97.1 F Temperature 97.1 F Results - Labs CBC & Chem 7: 10/11/20 02:00 10/11/20 02:00 Labs: Abnormal lab results 10/10/20 10/10/20 10/10/20 Range/Units 10:48 14:10 14:20 WBC (4.5-11.0) K/mm3 RBC (3.65-5.03) M/mm3 Lymph % (Auto) (13.4-35.0) % Lymph # (Auto) (1.2-5.4) K/mm3 Seg Neutrophils % (40.0-70.0) % Lymphocytes % (Manual) 42.0 H (13.4-35.0) % Monocytes % (Manual) (0.0-7.3) % Seg Neutrophils # (1.8-7.7) K/mm3 Seg Neutrophils # Man (1.8-7.7) K/mm3 Lymphocytes # (Manual) (1.2-5.4) K/mm3 Monocytes # (Manual) (0.0-0.8) K/mm3 Heparin Anti-Xa Level (0.3-0.7) U.I./ml ABG pH 7.175 L (7.320-7.450) POC ABG pCO2 85.0 H (32.0-48.0) mmHg POC ABG pO2 43.7 L (83-108) mmHg ABG pO2 (80.0-90.0) mm Hg ABG HCO3 (20.0-26.0) mmol/L ABG O2 Saturation (95.0-99.0) % ABG Oxyhemoglobin 67.7 L (94-98) ABG Sodium (136.0-145.0) mmol/L ABG Potassium (3.40-4.50) mmol/L ABG Chloride (98-107) mmol/L ABG Glucose 247 H (65-95) mg/dL Oxyhemoglobin (95.0-99.0) % Sodium (137-145) mmol/L Potassium (3.6-5.0) mmol/L Chloride (98-107) mmol/L Carbon Dioxide (22-30) mmol/L BUN (9-20) mg/dL Creatinine (0.8-1.3) mg/dL Glucose (75-100) mg/dL POC Glucose (70-105) mg/dL Lactic Acid 4.00 H* (0.7-2.0) mmol/L AST (5-40) units/L ALT (7-56) units/L Total Creatine Kinase (55-170) units/L CK-MB (CK-2) (0.0-4.0) ng/mL Troponin T (0.00-0.029) ng/mL Albumin (3.9-5) g/dL Arterial Blood Glucose 247 H (65-95) mg/dL Arterial Blood Ionized Calcium 4.4 L (4.6-5.3) mg/dL 10/10/20 10/10/20 10/10/20 Range/Units 15:50 15:50 16:22 WBC (4.5-11.0) K/mm3 RBC (3.65-5.03) M/mm3 Lymph % (Auto) (13.4-35.0) % Lymph # (Auto) (1.2-5.4) K/mm3 Seg Neutrophils % (40.0-70.0) % Lymphocytes % (Manual) (13.4-35.0) % Monocytes % (Manual) (0.0-7.3) % Seg Neutrophils # (1.8-7.7) K/mm3 Seg Neutrophils # Man (1.8-7.7) K/mm3 Lymphocytes # (Manual) (1.2-5.4) K/mm3 Monocytes # (Manual) (0.0-0.8) K/mm3 Heparin Anti-Xa Level (0.3-0.7) U.I./ml ABG pH 7.247 L 7.171 L (7.320-7.450) POC ABG pCO2 96.6 H (32.0-48.0) mmHg POC ABG pO2 55.3 L (83-108) mmHg ABG pO2 60.3 L (80.0-90.0) mm Hg ABG HCO3 32.0 H (20.0-26.0) mmol/L ABG O2 Saturation 86.1 L (95.0-99.0) % ABG Oxyhemoglobin 81.4 L (94-98) ABG Sodium (136.0-145.0) mmol/L ABG Potassium (3.40-4.50) mmol/L ABG Chloride (98-107) mmol/L ABG Glucose 115 H (65-95) mg/dL Oxyhemoglobin 84.4 L (95.0-99.0) % Sodium (137-145) mmol/L Potassium (3.6-5.0) mmol/L Chloride (98-107) mmol/L Carbon Dioxide (22-30) mmol/L BUN (9-20) mg/dL Creatinine (0.8-1.3) mg/dL Glucose (75-100) mg/dL POC Glucose 132 H (70-105) mg/dL Lactic Acid (0.7-2.0) mmol/L AST (5-40) units/L ALT (7-56) units/L Total Creatine Kinase (55-170) units/L CK-MB (CK-2) (0.0-4.0) ng/mL Troponin T (0.00-0.029) ng/mL Albumin (3.9-5) g/dL Arterial Blood Glucose 115 H (65-95) mg/dL Arterial Blood Ionized Calcium (4.6-5.3) mg/dL 10/10/20 10/10/20 10/10/20 Range/Units 18:18 18:18 18:18 WBC 23.0 H (4.5-11.0) K/mm3 RBC 5.12 H (3.65-5.03) M/mm3 Lymph % (Auto) (13.4-35.0) % Lymph # (Auto) (1.2-5.4) K/mm3 Seg Neutrophils % (40.0-70.0) % Lymphocytes % (Manual) 4.0 L (13.4-35.0) % Monocytes % (Manual) 9.0 H (0.0-7.3) % Seg Neutrophils # (1.8-7.7) K/mm3 Seg Neutrophils # Man 13.8 H (1.8-7.7) K/mm3 Lymphocytes # (Manual) 0.9 L (1.2-5.4) K/mm3 Monocytes # (Manual) 2.1 H (0.0-0.8) K/mm3 Heparin Anti-Xa Level (0.3-0.7) U.I./ml ABG pH (7.320-7.450) POC ABG pCO2 (32.0-48.0) mmHg POC ABG pO2 (83-108) mmHg ABG pO2 (80.0-90.0) mm Hg ABG HCO3 (20.0-26.0) mmol/L ABG O2 Saturation (95.0-99.0) % ABG Oxyhemoglobin (94-98) ABG Sodium (136.0-145.0) mmol/L ABG Potassium (3.40-4.50) mmol/L ABG Chloride (98-107) mmol/L ABG Glucose (65-95) mg/dL Oxyhemoglobin (95.0-99.0) % Sodium 146 H (137-145) mmol/L Potassium (3.6-5.0) mmol/L Chloride (98-107) mmol/L Carbon Dioxide 34 H D (22-30) mmol/L BUN 27 H (9-20) mg/dL Creatinine 2.7 H (0.8-1.3) mg/dL Glucose 102 H (75-100) mg/dL POC Glucose (70-105) mg/dL Lactic Acid (0.7-2.0) mmol/L AST 90 H (5-40) units/L ALT 66 H (7-56) units/L Total Creatine Kinase 1192 H (55-170) units/L CK-MB (CK-2) 21.7 H (0.0-4.0) ng/mL Troponin T 0.377 H* D (0.00-0.029) ng/mL Albumin (3.9-5) g/dL Arterial Blood Glucose (65-95) mg/dL Arterial Blood Ionized Calcium (4.6-5.3) mg/dL 10/10/20 10/11/20 10/11/20 Range/Units 22:49 02:00 02:00 WBC 17.3 H (4.5-11.0) K/mm3 RBC (3.65-5.03) M/mm3 Lymph % (Auto) 3.9 L (13.4-35.0) % Lymph # (Auto) 0.7 L (1.2-5.4) K/mm3 Seg Neutrophils % 93.0 H (40.0-70.0) % Lymphocytes % (Manual) (13.4-35.0) % Monocytes % (Manual) (0.0-7.3) % Seg Neutrophils # 16.1 H (1.8-7.7) K/mm3 Seg Neutrophils # Man (1.8-7.7) K/mm3 Lymphocytes # (Manual) (1.2-5.4) K/mm3 Monocytes # (Manual) (0.0-0.8) K/mm3 Heparin Anti-Xa Level (0.3-0.7) U.I./ml ABG pH (7.320-7.450) POC ABG pCO2 (32.0-48.0) mmHg POC ABG pO2 (83-108) mmHg ABG pO2 (80.0-90.0) mm Hg ABG HCO3 (20.0-26.0) mmol/L ABG O2 Saturation (95.0-99.0) % ABG Oxyhemoglobin (94-98) ABG Sodium (136.0-145.0) mmol/L ABG Potassium (3.40-4.50) mmol/L ABG Chloride (98-107) mmol/L ABG Glucose (65-95) mg/dL Oxyhemoglobin (95.0-99.0) % Sodium (137-145) mmol/L Potassium (3.6-5.0) mmol/L Chloride (98-107) mmol/L Carbon Dioxide (22-30) mmol/L BUN (9-20) mg/dL Creatinine (0.8-1.3) mg/dL Glucose (75-100) mg/dL POC Glucose (70-105) mg/dL Lactic Acid (0.7-2.0) mmol/L AST (5-40) units/L ALT (7-56) units/L Total Creatine Kinase (55-170) units/L CK-MB (CK-2) (0.0-4.0) ng/mL Troponin T 0.273 H* D 0.201 H* D (0.00-0.029) ng/mL Albumin (3.9-5) g/dL Arterial Blood Glucose (65-95) mg/dL Arterial Blood Ionized Calcium (4.6-5.3) mg/dL 10/11/20 10/11/20 10/11/20 Range/Units 02:00 03:51 08:35 WBC (4.5-11.0) K/mm3 RBC (3.65-5.03) M/mm3 Lymph % (Auto) (13.4-35.0) % Lymph # (Auto) (1.2-5.4) K/mm3 Seg Neutrophils % (40.0-70.0) % Lymphocytes % (Manual) (13.4-35.0) % Monocytes % (Manual) (0.0-7.3) % Seg Neutrophils # (1.8-7.7) K/mm3 Seg Neutrophils # Man (1.8-7.7) K/mm3 Lymphocytes # (Manual) (1.2-5.4) K/mm3 Monocytes # (Manual) (0.0-0.8) K/mm3 Heparin Anti-Xa Level 0.22 L (0.3-0.7) U.I./ml ABG pH 7.491 H (7.320-7.450) POC ABG pCO2 57.6 H (32.0-48.0) mmHg POC ABG pO2 (83-108) mmHg ABG pO2 (80.0-90.0) mm Hg ABG HCO3 (20.0-26.0) mmol/L ABG O2 Saturation (95.0-99.0) % ABG Oxyhemoglobin (94-98) ABG Sodium 150.0 H (136.0-145.0) mmol/L ABG Potassium 3.1 L (3.40-4.50) mmol/L ABG Chloride 96.0 L (98-107) mmol/L ABG Glucose 122 H (65-95) mg/dL Oxyhemoglobin (95.0-99.0) % Sodium 149 H (137-145) mmol/L Potassium 3.3 L (3.6-5.0) mmol/L Chloride 95.3 L (98-107) mmol/L Carbon Dioxide 37 H (22-30) mmol/L BUN 29 H (9-20) mg/dL Creatinine 2.6 H (0.8-1.3) mg/dL Glucose (75-100) mg/dL POC Glucose (70-105) mg/dL Lactic Acid (0.7-2.0) mmol/L AST 80 H (5-40) units/L ALT 59 H (7-56) units/L Total Creatine Kinase (55-170) units/L CK-MB (CK-2) (0.0-4.0) ng/mL Troponin T (0.00-0.029) ng/mL Albumin 3.6 L (3.9-5) g/dL Arterial Blood Glucose 122 H (65-95) mg/dL Arterial Blood Ionized Calcium 3.9 L (4.6-5.3) mg/dL - Imaging and Cardiology Chest x-ray: report reviewed, image reviewed (R pneumonia) Assessment and Plan Cultures: SARS CoV2 PCR: Pending 10/10/2020 blood culture: No growth 10/10/2020 ET aspirate culture: In process. A/P: 55-year-old male with hypertension, asthma, obesity came into the emergency room after receiving the Covid vaccine and passing out in the car at the emergency room bay. Patient was found to be unresponsive with no pulse, ACLS was initiated: #Sepsis, likely secondary to pneumonia. #Right-sided pneumonia: Possible aspiration during ACLS. #Acute hypoxic respiratory failure: On mechanical ventilation. #MOE: Renally dose antibiotics. #Elevated LFTs: Likely from sepsis #Urine tox screen positive for THC Recs: -f/u COVID-19 PCR -Continue cefepime, vancomycin for now -Follow-up cultures Jose Marquez MD, FACP [facility] ([facility] O: [phone] F: [phone]
[2020-10-11 13:50] LABS: Hematocrit 37.2 % (35.5-45.6); Hemoglobin 12.2 gm/dl (11.8-15.2); Mean Corpuscular HGB Conc 33 % (32-34); Mean Corpuscular Volume 88 fl (84-94); Platelet Count 169 K/mm3 (140-440); Red Blood Count 4.24 M/mm3 (3.65-5.03); Red Cell Distribution Width 14.9 % (13.2-15.2)
[2020-10-11 13:55] LABS: Bilirubin,Urine NEG (Negative); Blood,Urine MOD (Negative); Color,Urine Yellow (Yellow); Mucus,Urine FEW /HPF; Urobilinogen,Urine < 2.0 mg/dL (<2.0)
[2020-10-11 14:02] LABS: Creatinine,Urine 80.5 mg/dL (0.1-20.0)
--- NOTE | 2020-10-11 14:16 | Consultation ---
History of Present Illness Consult date: 10/11/20 Requesting physician: JOI TAMEZ Consult reason: cardiac arrest History of present illness: The pt is a 55-year-old -[place] male with a past medical history of hypertension, asthma, obesity. He is intubated and sedated on evaluation and thus HPI is obtained per the chart. Pt presented to ED after Covid vaccine and passed out with seizure like activity in the car at the emergency room bay. Patient was found to be unresponsive and with no pulse. ACLS protocol was initiated from the car to the emergency room with continued ACLS protocol. Patient was intubated and after couple of epi ROSC obtained. Central line was placed and patient was also started on pressors. Patient did not have any fever shortness of breath or cough or any symptoms prior to the COVID-19 vaccination. Patient coded twice in the emergency room. One before the imaging studies and once after the imaging studies. Past History Past Medical History: other (as per HPI) Medications and Allergies Allergies Allergy/AdvReac Type Severity Reaction Status Date / Time No Known Allergies Allergy Unverified 07/06/13 15:19 Home Medications Medication Instructions Recorded Confirmed Last Taken Type Albuterol Sulfate [Ventolin HFA] 2 puff IH Q4H PRN #1 hfa.aer.ad 07/06/13 Unknown Rx Prednisone 40 mg PO QDAY #8 tablet 07/06/13 Unknown Rx Albuterol Mdi (or & Nicu Only) 2 puff IH Q4H PRN #1 inha 07/07/13 Unknown Rx [ProAir HFA Inhaler] Azithromycin [Zithromax Z-KYLE] 500 mg PO QDAY #5 tab 07/07/13 Unknown Rx HYDROcodone/APAP 5-325 [[place] 2 each PO Q6H PRN #30 tablet 07/07/13 Unknown Rx 5-325 mg TAB] predniSONE [Deltasone] 40 mg PO QDAY #10 tablet 07/07/13 Unknown Rx Active Meds: Active Medications Acetaminophen (Acetaminophen 325 Mg Tab) 650 mg PO Q4H PRN PRN Reason: Pain MILD(1-3)/Fever >100.5/[place] Acetaminophen (Acetaminophen 650 Mg Rect Supp) 650 mg DE Q6H PRN PRN Reason: Fever >101 Albuterol (Albuterol 2.5 Mg/3 Ml Nebu) 2.5 mg IH Q6HRT PRN PRN Reason: Shortness Of Breath Lipase/Protease/Amylase (Lipase 10,500/Protease 25,000/Amylase 43,750 (Units) Dr Cap) 1 each FEEDTUBE PRN PRN PRN Reason: For Clogged Feeding Tube Dexamethasone (Dexamethasone 4 Mg/Ml Vial) 6 mg IV Q24HR@2200 PEPITO Stop: 10/19/20 22:01 Famotidine (Famotidine 20 Mg/2 Ml Inj) 20 mg IV DAILY PEPITO Last Admin: 10/11/20 09:13 Dose: 20 mg Documented by: Heparin Sodium (Porcine) (Heparin 5,000 Unit/1 Ml Vial) 5,000 unit SUB-Q Q12HR PEPITO Hydralazine HCl (Hydralazine 20 Mg/1 Ml Inj) 5 mg IV Q4HR PRN PRN Reason: Hypertension Last Admin: 10/11/20 03:49 Dose: 5 mg Documented by: Hydromorphone HCl (Hydromorphone 1 Mg/1 Ml Inj) 0.5 mg IV Q3H PRN PRN Reason: Pain , Severe (7-10) Hydrophilic Ointment (Lip Therapy Vaseline) 1 applic TP Q2HR PRN PRN Reason: Dry Lips Propofol (Diprivan 10 Mg/Ml) 1,000 mg in 100 mls @ 4.23 mls/hr IV TITR PEPITO; Protocol Last Admin: 10/11/20 11:16 Dose: 25 mcg/kg/min, 21.15 mls/hr Documented by: Nitroglycerin/Dextrose (Tridil Drip 50mg/250ml) 50 mg in 250 mls @ 3 mls/hr IV TITR PEPITO; Protocol Last Titration: 10/10/20 13:17 Dose: 0 mcg/min, 0 mls/hr Documented by: Norepinephrine 8 mg/ Sodium (Chloride) 250 mls @ 3.75 mls/hr IV TITRATE PEPITO; Protocol Last Titration: 10/10/20 22:15 Dose: 0 mcg/min, 0 mls/hr Documented by: Furosemide 100 mg/ Sodium (Chloride) 100 mls @ 5 mls/hr IV TITR PEPITO; Protocol Last Admin: 10/11/20 08:37 Dose: 5 mg/hr, 5 mls/hr Documented by: Epinephrine 8 mg/ Sodium (Chloride) 250 mls @ 3.75 mls/hr IV DIRECT PEPITO; Protocol Cefepime HCl (Cefepime/Ns 2 Gm/100 Ml) 2 gm in 100 mls @ 200 mls/hr IV Q12H PEPITO; Protocol Last Admin: 10/11/20 10:15 Dose: 200 mls/hr Documented by: Metoclopramide HCl (Metoclopramide 10 Mg/2 Ml Inj) 10 mg IV Q6H PRN PRN Reason: Nausea And Vomiting Metoprolol Tartrate (Metoprolol Tartrate 5 Mg/5 Ml Inj) 5 mg IV Q6HR PEPITO Morphine Sulfate (Morphine/Ns 30 Mg-30 Ml Machine Taper Inj) 0 mg IV DIRECT PEPITO; Protocol Multi-Ingred Cream/Lotion/Oil/Oint (Mineral Oil/Petrolatum, White Ophth Oint 3.5 Gm) 1 applic OU Q4HR PRN PRN Reason: Dry Eye(s) Naloxone HCl (Naloxone 0.4 Mg/1 Ml Inj) 0.1 mg IV Q2MIN PRN PRN Reason: Res Rate </= 8 or 02 SAT < 92% Ondansetron HCl (Ondansetron 4 Mg/2 Ml Inj) 4 mg IV Q3H PRN PRN Reason: Nausea And Vomiting Simple Syrup (Simple Syrup 15 Ml) 15 ml FEEDTUBE PRN PRN PRN Reason: Hypoglycemia Simple Syrup (Simple Syrup 15 Ml) 30 ml FEEDTUBE PRN PRN PRN Reason: Hypoglycemia Sodium Bicarbonate (Sodium Bicarbonate 325 Mg Tab) 325 mg FEEDTUBE PRN PRN PRN Reason: For Clogged Feeding Tube Sodium Chloride (Sodium Chloride 0.9% 10 Ml Flush Syringe) 10 ml IV BID [facility] Last Admin: 10/11/20 09:13 Dose: 10 ml Documented by: Sodium Chloride (Sodium Chloride 0.9% 10 Ml Flush Syringe) 10 ml IV PRN PRN PRN Reason: LINE FLUSH Review of Systems ROS unobtainable: due to endotracheal tube, due to mental status Physical Examination Vital Signs Pulse Resp BP 119 H 26 H 228/162 10/10/20 10:34 10/10/20 10:34 10/10/20 10:34 General appearance: other (intubated, sedated) Cardiac: Positive: Regular Rhythm, S1/S2 Lungs: Positive: Decreased Breath Sounds, Oxygen, Ventilated Respirations Neuro: Positive: Other (intubated, sedated) Results 10/11/20 13:30 10/11/20 02:00 Cardiac Enzymes 10/10/20 10/10/20 10/11/20 Range/Units 18:18 18:18 02:00 AST 90 H 80 H (5-40) units/L CK-MB (CK-2) 21.7 H (0.0-4.0) ng/mL Coagulation 10/10/20 Range/Units 18:18 PT 13.8 (12.2-14.9) Sec. INR 1.07 (0.87-1.13) APTT 26.9 (24.2-36.6) Sec. Lipids 10/10/20 Range/Units 18:18 Triglycerides 129 (2-149) mg/dL Cholesterol 138 (50-199) mg/dL HDL Cholesterol 49 (40-59) mg/dL Cholesterol/HDL Ratio 2.81 % CBC 10/10/20 10/11/20 10/11/20 Range/Units 18:18 02:00 13:30 WBC 23.0 H 17.3 H 15.0 H (4.5-11.0) K/mm3 RBC 5.12 H 4.72 4.24 (3.65-5.03) M/mm3 Hgb 15.1 13.9 12.2 (11.8-15.2) gm/dl Hct 45.4 40.8 37.2 (35.5-45.6) % Plt Count 240 175 169 (140-440) K/mm3 Lymph # (Auto) 0.7 L (1.2-5.4) K/mm3 [place] # (Auto) 0.5 (0.0-0.8) K/mm3 Eos # (Auto) 0.0 (0.0-0.4) K/mm3 Baso # (Auto) 0.0 (0.0-0.1) K/mm3 Comprehensive Metabolic Panel 10/10/20 10/11/20 Range/Units 18:18 02:00 Sodium 146 H 149 H (137-145) mmol/L Potassium 4.0 D 3.3 L (3.6-5.0) mmol/L Chloride 99.6 95.3 L (98-107) mmol/L Carbon Dioxide 34 H D 37 H (22-30) mmol/L BUN 27 H 29 H (9-20) mg/dL Creatinine 2.7 H 2.6 H (0.8-1.3) mg/dL Glucose 102 H 92 (75-100) mg/dL Calcium 8.9 8.7 (8.4-10.2) mg/dL AST 90 H 80 H (5-40) units/L ALT 66 H 59 H (7-56) units/L Alkaline Phosphatase 65 52 (35-129) units/L Total Protein 7.2 6.8 (6.3-8.2) g/dL Albumin 3.9 3.6 L (3.9-5) g/dL - Imaging and Cardiology Echo: pending EKG: report reviewed, image reviewed EKG interpretations - Telemetry EKG Rhythm: Sinus Tachycardia - EKG Sinus rhythms and dysrhythmias: sinus rhythm Assessment and Plan Pt presented with cardiopulmonary arrest (? PEA) after receiving COVID vaccination yesterday. He is intubated. He is noted to have bilateral PNA and pulmonary edema and is COVID-19 PUI. Post cardiac arrest ECG shows ST with no acute ischemic changes. Olga are noted to be elevated, trending downwards, appear c/w NSTEMI type II. Pt was initiated on heparin gtt overnight in setting of elevated Olga and suspicion for PE. He was noted to have bright red bleeding from OG tube today, heparin gtt d/c'd. LConsider GI consultation per primary. F/u CBC in AM. Cont to trend Olga and f/u ECG in AM. Pt initially with hypotension requiring vasopressor support, now weaned off vasopressors and noted to have hypertension with sinus tachycardia. Optimize BPs and HR - initiate IV lopressor. Await COVID-19 testing. Plan to obtain tte pending test results. Agree with diuresis if ok per nephrology. Await nephrology recs. F/u BMP in AM. Overall guarded prognosis. Further recs to follow per hospital course. The patient has been seen in conjunction with Dr. Liz Steen who agrees with the assessment and plan of care. - Patient Problems (1) Cardiopulmonary arrest with successful resuscitation Current Visit: Yes Status: Acute (2) Acute respiratory failure Current Visit: Yes Status: Acute Qualifiers: Respiratory failure complication: hypoxia and hypercapnia Qualified Code(s): J96.01 - Acute respiratory failure with hypoxia; J96.02 - Acute respiratory failure with hypercapnia (3) Bilateral pneumonia Current Visit: Yes Status: Acute (4) Sepsis with hypotension Current Visit: Yes Status: Acute (5) Person under investigation for COVID-19 Current Visit: Yes Status: Acute (6) NSTEMI (non-ST elevated myocardial infarction) Current Visit: Yes Status: Acute (7) Acute heart failure Current Visit: Yes Status: Suspected (8) MOE (acute kidney injury) Current Visit: Yes Status: Acute (9) GI bleed Current Visit: Yes Status: Suspected
--- NOTE | 2020-10-11 14:48 | Progress Note ---
<JOI TAMEZ - Last Filed: 10/11/20 14:46> Assessment and Plan Assessment and plan: -CCM, cardiology, nephrology, infectious disease consulted, appreciate recommendations -Antibiotic therapy -Steroid therapy -Lasix drip -Beta-shital IV every 6 hours -Trend CBC and BMP -Mechanical ventilation, wean as tolerated, VAP bundle GI/DVT prophylaxis: SCDs to bilateral lower extremities while in bed, PPI, Heparin subq Dispo: ICU The high probability of a clinically significant, sudden or life threatening deterioration of the [multi] system(s) required my full and direct attention, intervention and personal management. The aggregate critical care time was [35] minutes. This time is in addition to time spent performing reported procedures but includes the following: [x] Data Review and interpretation [x] Patient assessment and monitoring of vital signs [x] Documentation [x] Medication orders and management History Interval history: This is a 55-year-old male with hypertension, asthma, obesity in the emergency by presents the emergency department on 10/10 after receiving a Covid vaccine being found unresponsive in his car in the emergency room by with no pulse and ACLS protocol was initiated from his car to emergency room #21 where it was continued. Patient was intubated after ROSC was achieved and a central line was placed and the patient was initiated on pressors. In the emergency room patient seems to have seizure-like activity and then collapsed and was unresponsive with no palpable pulse and ACLS was again initiated patient with achievement of ROSC. Patient again coded with ACLS protocol in the CT room. Upon arrival to the ICU patient again coded and ROSC was achieved and he was placed on epinephrine, Lasix, heparin and sodium bicarbonate drip and sedated with propofol. An NG tube was placed, A-line was placed. Patient was admitted to the hospitalist service with consult to CCM, nephrology, infectious disease and cardiology. 10/11: Patient COVID-19 PCR is pending and he remains on mechanical ventilation, examination on assist control 400/30/12/0.95. Patient is scheduled for an echocardiogram and we will obtain bilateral lower extremity Doppler ultrasound given elevated D-dimer. Patient was supposed to have a CTA chest when he coded yesterday. We will begin trickle feeding. This morning patient was on a heparin drip and was noted to have bloody drainage from his NG tube. Heparin drip was discontinued. Sepsis COVID-19 PUI Right-sided pneumonia NSTEMI type II Acute heart failure GI bleed Leukocytosis Hypokalemia Metabolic alkalosis Hyponatremia Hypochloremia Acute hypoxic respiratory failure Acute kidney injury Transaminitis HTN Obesity Hospitalist Physical - Constitutional Vitals: Temp Pulse Resp BP Pulse Ox 102.6 F H 96 H 24 140/79 97 10/11/20 12:00 10/11/20 13:50 10/11/20 13:50 10/11/20 13:50 10/11/20 13:50 General appearance: Present: no acute distress, other (intubated, sedated) - EENT Eyes: Present: PERRL - Neck Neck: Absent: masses or JVD, cervical LAD - Respiratory Respiratory effort: normal Respiratory: bilateral: diminished - Cardiovascular Rhythm: regular Heart Sounds: Present: S1 & S2. Absent: systolic murmur, diastolic murmur - Extremities Extremities: no ischemia, pulses intact, pulses symmetrical, No edema, normal temperature, normal color Peripheral Pulses: within normal limits - Abdominal General gastrointestinal: soft, non-tender, non-distended, normal bowel sounds - Integumentary Integumentary: Present: warm, dry - Psychiatric Psychiatric: other (sedated) - Neurologic Neurologic: other (sedated) - Allied Health Allied health notes reviewed: nursing, RT HEART Score - HEART Score EKG: Non-specific Age: 45-65 Troponin: Troponin T 0.201 ng/mL (0.00-0.029) H* D 10/11/20 02:00 Troponin: 1-3x normal limit - Critical Actions Critical Actions: 4-6 pts:12-16.6% risk of adverse cardiac event. Should be ad mitted Results - Labs CBC & Chem 7: 10/11/20 13:30 10/11/20 02:00 Labs: Laboratory Last Values WBC 15.0 K/mm3 (4.5-11.0) H 10/11/20 13:30 RBC 4.24 M/mm3 (3.65-5.03) 10/11/20 13:30 Hgb 12.2 gm/dl (11.8-15.2) 10/11/20 13:30 Hct 37.2 % (35.5-45.6) 10/11/20 13:30 MCV 88 fl (84-94) 10/11/20 13:30 MCH 29 pg (28-32) 10/11/20 13:30 MCHC 33 % (32-34) 10/11/20 13:30 RDW 14.9 % (13.2-15.2) 10/11/20 13:30 Plt Count 169 K/mm3 (140-440) 10/11/20 13:30 Lymph % (Auto) 3.9 % (13.4-35.0) L 10/11/20 02:00 [place] % (Auto) 3.0 % (0.0-7.3) 10/11/20 02:00 Eos % (Auto) 0.0 % (0.0-4.3) 10/11/20 02:00 Baso % (Auto) 0.1 % (0.0-1.8) 10/11/20 02:00 Lymph # (Auto) 0.7 K/mm3 (1.2-5.4) L 10/11/20 02:00 [place] # (Auto) 0.5 K/mm3 (0.0-0.8) 10/11/20 02:00 Eos # (Auto) 0.0 K/mm3 (0.0-0.4) 10/11/20 02:00 Baso # (Auto) 0.0 K/mm3 (0.0-0.1) 10/11/20 02:00 Add Manual Diff Complete 10/10/20 18:18 Total Counted 100 10/10/20 18:18 Seg Neutrophils % 93.0 % (40.0-70.0) H 10/11/20 02:00 Seg Neuts % (Manual) 60.0 % (40.0-70.0) 10/10/20 18:18 Band Neutrophils % 27.0 % 10/10/20 18:18 Lymphocytes % (Manual) 4.0 % (13.4-35.0) L 10/10/20 18:18 Monocytes % (Manual) 9.0 % (0.0-7.3) H 10/10/20 18:18 Eosinophils % (Manual) 4.0 % (0.0-4.3) 10/10/20 10:48 Metamyelocytes % 1.0 % 10/10/20 10:48 Nucleated RBC % Not Reportable 10/10/20 18:18 Seg Neutrophils # 16.1 K/mm3 (1.8-7.7) H 10/11/20 02:00 Seg Neutrophils # Man 13.8 K/mm3 (1.8-7.7) H 10/10/20 18:18 Band Neutrophils # 6.2 K/mm3 10/10/20 18:18 Lymphocytes # (Manual) 0.9 K/mm3 (1.2-5.4) L 10/10/20 18:18 Abs React Lymphs (Man) 0.0 K/mm3 10/10/20 18:18 Monocytes # (Manual) 2.1 K/mm3 (0.0-0.8) H 10/10/20 18:18 Eosinophils # (Manual) 0.0 K/mm3 (0.0-0.4) 10/10/20 18:18 Basophils # (Manual) 0.0 K/mm3 (0.0-0.1) 10/10/20 18:18 Metamyelocytes # 0.0 K/mm3 10/10/20 18:18 Myelocytes # 0.0 K/mm3 10/10/20 18:18 Promyelocytes # 0.0 K/mm3 10/10/20 18:18 Blast Cells # 0.0 K/mm3 10/10/20 18:18 WBC Morphology Not Reportable 10/10/20 18:18 Hypersegmented Neuts Not Reportable 10/10/20 18:18 Hyposegmented Neuts Not Reportable 10/10/20 18:18 Hypogranular Neuts Not Reportable 10/10/20 18:18 Smudge Cells Not Reportable 10/10/20 18:18 Toxic Granulation Not Reportable 10/10/20 18:18 Toxic Vacuolation Not Reportable 10/10/20 18:18 Dohle Bodies Not Reportable 10/10/20 18:18 Pelger-Huet Anomaly Not Reportable 10/10/20 18:18 Dionicio Rods Not Reportable 10/10/20 18:18 Platelet Estimate Consistent w auto 10/10/20 18:18 Clumped Platelets Not Reportable 10/10/20 18:18 Plt Clumps, EDTA Not Reportable 10/10/20 18:18 Large Platelets Rare 10/10/20 18:18 Giant Platelets Rare 10/10/20 18:18 Platelet Satelliting Not Reportable 10/10/20 18:18 Plt Morphology Comment Not Reportable 10/10/20 18:18 RBC Morphology Not Reportable 10/10/20 18:18 Dimorphic RBCs Not Reportable 10/10/20 18:18 Polychromasia Not Reportable 10/10/20 18:18 Hypochromasia Not Reportable 10/10/20 18:18 Poikilocytosis Not Reportable 10/10/20 18:18 Anisocytosis Not Reportable 10/10/20 18:18 Microcytosis Not Reportable 10/10/20 18:18 Macrocytosis Not Reportable 10/10/20 18:18 Spherocytes Not Reportable 10/10/20 18:18 Pappenheimer Bodies Not Reportable 10/10/20 18:18 Sickle Cells Not Reportable 10/10/20 18:18 Target Cells Not Reportable 10/10/20 18:18 Tear Drop Cells Not Reportable 10/10/20 18:18 Ovalocytes Not Reportable 10/10/20 18:18 Helmet Cells Not Reportable 10/10/20 18:18 [place] Bodies Not Reportable 10/10/20 18:18 [place] Rings Not Reportable 10/10/20 18:18 [place] Cells Not Reportable 10/10/20 18:18 Bite Cells Not Reportable 10/10/20 18:18 Crenated Cell Not Reportable 10/10/20 18:18 Elliptocytes Not Reportable 10/10/20 18:18 Acanthocytes (Spur) Not Reportable 10/10/20 18:18 Rouleaux Not Reportable 10/10/20 18:18 Hemoglobin C Crystals Not Reportable 10/10/20 18:18 Schistocytes Not Reportable 10/10/20 18:18 Malaria parasites Not Reportable 10/10/20 18:18 Mauricio Bodies Not Reportable 10/10/20 18:18 Hem Pathologist Commnt No 10/10/20 18:18 PT 13.8 Sec. (12.2-14.9) 10/10/20 18:18 INR 1.07 (0.87-1.13) 10/10/20 18:18 APTT 26.9 Sec. (24.2-36.6) 10/10/20 18:18 D-Dimer 679.5 ng/mlDDU (0-234) H 10/10/20 10:48 Heparin Anti-Xa Level 0.22 U.I./ml (0.3-0.7) L 10/11/20 08:35 ABG pH 7.491 (7.320-7.450) H 10/11/20 03:51 POC ABG pCO2 57.6 mmHg (32.0-48.0) H 10/11/20 03:51 ABG pCO2 75.3 mm Hg 10/10/20 15:50 POC ABG pO2 106.1 mmHg (83-108) 10/11/20 03:51 ABG pO2 60.3 mm Hg (80.0-90.0) L 10/10/20 15:50 POC ABG HCO3 43 10/11/20 03:51 ABG HCO3 32.0 mmol/L (20.0-26.0) H 10/10/20 15:50 ABG O2 Saturation 98.3 (0-100) 10/11/20 03:51 ABG O2 Content 17.7 (0.0-44) 10/10/20 15:50 POC ABG Base Excess 16.7 10/11/20 03:51 ABG Base Excess 2.2 mmol/L (-2.0-3.0) 10/10/20 15:50 ABG Hemoglobin 14 (12.0-17.5) 10/11/20 03:51 ABG Oxyhemoglobin 81.4 (94-98) L 10/10/20 15:50 ABG Carboxyhemoglobin 1.4 % (0.0-5.0) 10/10/20 15:50 ABG Methemoglobin 0.3 (0.0-1.5) 10/10/20 15:50 ABG Methemoglobin 0.5 % (0.0-1.5) 10/10/20 15:50 ABG Sodium 150.0 mmol/L (136.0-145.0) H 10/11/20 03:51 ABG Potassium 3.1 mmol/L (3.40-4.50) L 10/11/20 03:51 ABG Chloride 96.0 mmol/L (98-107) L 10/11/20 03:51 ABG Glucose 122 mg/dL (65-95) H 10/11/20 03:51 VBG pH 6.870 (7.320-7.420) L* 10/10/20 10:48 Oxyhemoglobin 84.4 % (95.0-99.0) L 10/10/20 15:50 Carboxyhemoglobin 1.0 (0.5-1.5) 10/10/20 15:50 FiO2 100 % 10/10/20 15:50 FiO2 % 100 10/11/20 03:51 Sodium 149 mmol/L (137-145) H 10/11/20 02:00 Potassium 3.3 mmol/L (3.6-5.0) L 10/11/20 02:00 Chloride 95.3 mmol/L (98-107) L 10/11/20 02:00 Carbon Dioxide 37 mmol/L (22-30) H 10/11/20 02:00 Anion Gap 20 mmol/L 10/11/20 02:00 BUN 29 mg/dL (9-20) H 10/11/20 02:00 Creatinine 2.6 mg/dL (0.8-1.3) H 10/11/20 02:00 Estimated GFR 31 ml/min 10/11/20 02:00 BUN/Creatinine Ratio 11 % 10/11/20 02:00 Glucose 92 mg/dL (75-100) 10/11/20 02:00 POC Glucose 151 mg/dL (70-105) H 10/11/20 11:15 Hemoglobin A1c 6.0 % (4-6) 10/11/20 02:00 Lactic Acid 4.00 mmol/L (0.7-2.0) H* 10/10/20 14:20 Calcium 8.7 mg/dL (8.4-10.2) 10/11/20 02:00 Ferritin 81.4 ng/mL (30.0-300.0) 10/10/20 10:48 Total Bilirubin 0.60 mg/dL (0.1-1.2) 10/11/20 02:00 AST 80 units/L (5-40) H 10/11/20 02:00 ALT 59 units/L (7-56) H 10/11/20 02:00 Alkaline Phosphatase 52 units/L (35-129) 10/11/20 02:00 Ammonia 214.0 umol/L (25-60) H 10/10/20 10:46 Lactate Dehydrogenase 386 units/L (91-180) H 10/10/20 10:48 Total Creatine Kinase 1192 units/L (55-170) H 10/10/20 18:18 CK-MB (CK-2) 21.7 ng/mL (0.0-4.0) H 10/10/20 18:18 CK-MB (CK-2) Rel Index 1.8 (0-4) 10/10/20 18:18 Troponin T 0.201 ng/mL (0.00-0.029) H* D 10/11/20 02:00 C-Reactive Protein 0.90 mg/dL (0.00-1.30) 10/10/20 10:48 NT-Pro-B Natriuret Pep 1187 pg/mL (0-900) H 10/10/20 10:46 Total Protein 6.8 g/dL (6.3-8.2) 10/11/20 02:00 Albumin 3.6 g/dL (3.9-5) L 10/11/20 02:00 Albumin/Globulin Ratio 1.1 % 10/11/20 02:00 Triglycerides 129 mg/dL (2-149) 10/10/20 18:18 Cholesterol 138 mg/dL (50-199) 10/10/20 18:18 LDL Cholesterol Direct 76 mg/dL (50-130) 10/10/20 18:18 HDL Cholesterol 49 mg/dL (40-59) 10/10/20 18:18 Cholesterol/HDL Ratio 2.81 % 10/10/20 18:18 Procalcitonin 0.09 ng/mL (<0.15) 10/10/20 10:48 TSH 6.260 mlU/mL (0.270-4.200) H 10/10/20 10:46 Arterial Blood Glucose 122 mg/dL (65-95) H 10/11/20 03:51 Arterial Blood Ionized Calcium 3.9 mg/dL (4.6-5.3) L 10/11/20 03:51 Urine Color Yellow (Yellow) 10/11/20 13:30 Urine Turbidity Slightly-cloudy (Clear) 10/11/20 13:30 Urine pH 9.0 (5.0-7.0) H 10/11/20 13:30 Ur Specific Hermann 1.012 (1.003-1.030) 10/11/20 13:30 Urine Protein 30 mg/dl mg/dL (Negative) 10/11/20 13:30 Urine Glucose (UA) Neg mg/dL (Negative) 10/11/20 13:30 Urine Ketones Neg mg/dL (Negative) 10/11/20 13:30 Urine Blood Mod (Negative) 10/11/20 13:30 Urine Nitrite Neg (Negative) 10/11/20 13:30 Urine Bilirubin Neg (Negative) 10/11/20 13:30 Urine Urobilinogen < 2.0 mg/dL (<2.0) 10/11/20 13:30 Ur Leukocyte Esterase Tr (Negative) 10/11/20 13:30 Urine WBC (Auto) 18.0 /HPF (0.0-6.0) H 10/11/20 13:30 Urine RBC (Auto) 150.0 /HPF (0.0-6.0) 10/11/20 13:30 U Epithel Cells (Auto) < 1.0 /HPF (0-13.0) 10/11/20 13:30 Urine Mucus Few /HPF 10/11/20 13:30 Urine Creatinine 80.5 mg/dL (0.1-20.0) H 10/11/20 13:30 Urine Sodium 110 mmol/L 10/11/20 13:30 Urine Opiates Screen Negative 10/10/20 10:50 Urine Methadone Screen Negative 10/10/20 10:50 Ur Barbiturates Screen Negative 10/10/20 10:50 Ur Phencyclidine Scrn Negative 10/10/20 10:50 Ur Amphetamines Screen Negative 10/10/20 10:50 U Benzodiazepines Scrn Negative 10/10/20 10:50 Urine Cocaine Screen Negative 10/10/20 10:50 U Marijuana (THC) Screen Positive 10/10/20 10:50 Drugs of Abuse Note Disclamer 10/10/20 10:50 Plasma/Serum Alcohol < 0.01 % (0-0.07) 10/10/20 10:48 Blood Type AB POSITIVE 10/10/20 10:48 Antibody Screen Negative 10/10/20 10:48 Microbiology: Microbiology 10/10/20 10:48 Peripheral/Venous Blood Culture - Preliminary NO GROWTH AFTER 24 HOURS 10/10/20 10:46 Peripheral/Venous Blood Culture - Preliminary NO GROWTH AFTER 24 HOURS 10/10/20 Unknown Tracheal Aspirate Sputum Culture - Preliminary [place]/IV: Voiding Method Indwelling Catheter Active Medications - Current Medications Current Medications: Generic Name Dose Route Start Last Admin Trade Name Freq PRN Reason Stop Dose Admin Acetaminophen 650 mg 10/10/20 21:51 Acetaminophen 325 Mg Tab PO Q4H PRN Pain MILD(1-3)/Fever >100.5/[place] Acetaminophen 650 mg 10/11/20 11:24 Acetaminophen 650 Mg Rect Supp VT Q6H PRN Fever >101 Albuterol 2.5 mg 10/11/20 13:12 Albuterol 2.5 Mg/3 Ml Nebu IH Q6HRT PRN Shortness Of Breath Lipase/Protease/Amylase 1 each 10/10/20 22:18 Lipase 10,500/Protease 25,000/Amylase 43,750 (Units) Dr Santana FEEDTUBE PRN PRN For Clogged Feeding Tube Dexamethasone 6 mg 10/11/20 22:00 Dexamethasone 4 Mg/Ml Vial IV 10/19/20 22:01 Q24HR@2200 PEPITO Famotidine 20 mg 10/10/20 22:15 10/11/20 09:13 Famotidine 20 Mg/2 Ml Inj IV 20 mg DAILY PEPITO Administration Heparin Sodium (Porcine) 5,000 unit 10/11/20 22:00 Heparin 5,000 Unit/1 Ml Vial SUB-Q Q12HR PEPITO Hydralazine HCl 5 mg 10/11/20 03:43 10/11/20 03:49 Hydralazine 20 Mg/1 Ml Inj IV 5 mg Q4HR PRN Administration Hypertension Hydromorphone HCl 0.5 mg 10/10/20 21:51 Hydromorphone 1 Mg/1 Ml Inj IV Q3H PRN Pain , Severe (7-10) Hydrophilic Ointment 1 applic 10/10/20 10:34 Lip Therapy Vaseline TP Q2HR PRN Dry Lips Propofol 1,000 mg in 100 mls @ 4.23 mls/hr 10/10/20 12:00 10/11/20 11:16 Diprivan 10 Mg/Ml IV 25 mcg/kg/min TITR PEPITO 21.15 mls/hr Administration Protocol 5 MCG/KG/MIN Nitroglycerin/Dextrose 50 mg in 250 mls @ 3 mls/hr 10/10/20 13:00 10/10/20 13:17 Tridil Drip 50mg/250ml IV 0 mcg/min TITR PEPITO 0 mls/hr Titration Protocol 10 MCG/MIN Norepinephrine 8 mg/ Sodium 250 mls @ 3.75 mls/hr 10/10/20 14:00 10/10/20 22:15 Chloride IV 0 mcg/min TITRATE PEPITO 0 mls/hr Titration Protocol 2 MCG/MIN Furosemide 100 mg/ Sodium 100 mls @ 5 mls/hr 10/10/20 17:00 10/11/20 08:37 Chloride IV 5 mg/hr TITR PEPITO 5 mls/hr Administration Protocol Titrate Epinephrine 8 mg/ Sodium 250 mls @ 3.75 mls/hr 10/10/20 18:00 Chloride IV DIRECT PEPITO Protocol 2 MCG/MIN Cefepime HCl 2 gm in 100 mls @ 200 mls/hr 10/11/20 11:00 10/11/20 10:15 Cefepime/Ns 2 Gm/100 Ml IV 200 mls/hr Q12H PEPITO Administration Protocol Metoclopramide HCl 10 mg 10/10/20 21:51 Metoclopramide 10 Mg/2 Ml Inj IV Q6H PRN Nausea And Vomiting Metoprolol Tartrate 5 mg 10/11/20 12:00 Metoprolol Tartrate 5 Mg/5 Ml Inj IV Q6HR [facility] Morphine Sulfate 0 mg 10/10/20 17:00 Morphine/Ns 30 Mg-30 Ml [employer] Inj IV DIRECT [facility] Protocol Multi-Ingred Cream/Lotion/Oil/Oint 1 applic 10/10/20 10:34 Mineral Oil/Petrolatum, White Ophth Oint 3.5 Gm OU Q4HR PRN Dry Eye(s) Naloxone HCl 0.1 mg 10/10/20 16:37 Naloxone 0.4 Mg/1 Ml Inj IV Q2MIN PRN Res Rate </= 8 or 02 SAT < 92% Ondansetron HCl 4 mg 10/10/20 21:51 Ondansetron 4 Mg/2 Ml Inj IV Q3H PRN Nausea And Vomiting Simple Syrup 15 ml 10/10/20 22:18 Simple Syrup 15 Ml FEEDTUBE PRN PRN Hypoglycemia Simple Syrup 30 ml 10/10/20 22:18 Simple Syrup 15 Ml FEEDTUBE PRN PRN Hypoglycemia Sodium Bicarbonate 325 mg 10/10/20 22:18 Sodium Bicarbonate 325 Mg Tab FEEDTUBE PRN PRN For Clogged Feeding Tube Sodium Chloride 10 ml 10/10/20 22:00 10/11/20 09:13 Sodium Chloride 0.9% 10 Ml Flush Syringe IV 10 ml BID PEPITO Administration Sodium Chloride 10 ml 10/10/20 21:51 Sodium Chloride 0.9% 10 Ml Flush Syringe IV PRN PRN LINE FLUSH Nutrition/Malnutrition Assess - Dietary Evaluation Nutrition/Malnutrition Findings: Nutrition Notes Start: 10/11/20 08: 38 Freq: Status: Active Protocol: Document 10/11/20 08:38 CW (Rec: 10/11/20 09:04 CW [id number]) Nutrition Notes Need for Assessment generated from: MD Order,president + publisher Current Diagnosis Acute Kidney Injury,Sepsis, Hypertension,Respiratory Failure Other Pertinent Diagnosis pneu, Covid 19, NC, pulmonary edema Current Diet TF Labs/Tests Na 149 K 3.3 BUN 29 Cr 2.6 Pertinent Medications lasix KCl 10 meq propofol 25.38 ml/hr (670.032 kcal) Decadron Vancomycin NS 1L [id number] 100 mEq Height 6 ft Weight 132.1 kg [place] Body Weight (kg) 80.90 BMI 39.4 Weight Status Morbidly Obese Subjective/Other Information MD consult for write manage TF and evaluate nutrition intake . Pt on mechanical vent. Recommend nepro TF regimen d/t poor renal functioning. Percent of energy/protein needs met: 0%/0% Burn Absent Trauma Absent Skin Integrity/Comment Intact Current % PO Negligible #1 Nutrition Diagnosis Inadequate oral intake Etiology pt unable to consume PO As Evidenced by Signs and Symptoms pt on mechanical vent Is patient on ventilator? Yes Is Patient Ambulatory and/or Out of Bed No REE-([facility]-confined to bed) 2648.304 Kcal/Kg value to use for calculation 16 Approximate Energy Requirements Using 2114 kcal/Kg Calculation Used for Recommendations Kcal/kg Additional Notes protein needs up to 202.25g ( up to 2.5g/kgIBW) fluid needs: 1 ml/kcal or per Nutrition Intervention Change Diet Order: TF regimen Nutrition Support: Nepro at 45 ml/hr with a free water flush of 300 ml q4h. Kcal 1,944 Protein (gm) 87 Fluid (mL) 785 Goal #1 Intitiate TF regimen Goal #2 TF tolerance at goal Anticipated Discharge Needs: unable to determine at this time Follow-Up By: 10/13/20 Additional Comments F/U TF at goal, vent status, TF tolerance, Na labs, renal related labs <JESSICAGREGORIAANJEL - Last Filed: 10/12/20 07:19> Assessment and Plan Assessment and plan: I saw and evaluated the patient. I agree with the findings and the plan of care as documented in the Nurse Practitioner's~note, with the following corrections and additions. Hospitalist Physical - Constitutional Vitals: Temp Pulse Resp BP Pulse Ox 99.4 F 80 20 150/88 98 10/12/20 04:00 10/12/20 06:14 10/12/20 06:00 10/12/20 06:14 10/12/20 06:00 HEART Score - HEART Score Troponin: Troponin T 0.201 ng/mL (0.00-0.029) H* D 10/11/20 02:00 Results - Labs CBC & Chem 7: 10/12/20 05:10 10/12/20 04:00 Labs: Laboratory Last Values WBC 14.3 K/mm3 (4.5-11.0) H 10/12/20 05:10 RBC 4.01 M/mm3 (3.65-5.03) 10/12/20 05:10 Hgb 11.6 gm/dl (11.8-15.2) L 10/12/20 05:10 Hct 35.2 % (35.5-45.6) L 10/12/20 05:10 MCV 88 fl (84-94) 10/12/20 05:10 MCH 29 pg (28-32) 10/12/20 05:10 MCHC 33 % (32-34) 10/12/20 05:10 RDW 15.0 % (13.2-15.2) 10/12/20 05:10 Plt Count 147 K/mm3 (140-440) 10/12/20 05:10 Lymph % (Auto) 3.9 % (13.4-35.0) L 10/11/20 02:00 [place] % (Auto) 3.0 % (0.0-7.3) 10/11/20 02:00 Eos % (Auto) 0.0 % (0.0-4.3) 10/11/20 02:00 Baso % (Auto) 0.1 % (0.0-1.8) 10/11/20 02:00 Lymph # (Auto) 0.7 K/mm3 (1.2-5.4) L 10/11/20 02:00 [place] # (Auto) 0.5 K/mm3 (0.0-0.8) 10/11/20 02:00 Eos # (Auto) 0.0 K/mm3 (0.0-0.4) 10/11/20 02:00 Baso # (Auto) 0.0 K/mm3 (0.0-0.1) 10/11/20 02:00 Add Manual Diff Complete 10/10/20 18:18 Total Counted 100 10/10/20 18:18 Seg Neutrophils % 93.0 % (40.0-70.0) H 10/11/20 02:00 Seg Neuts % (Manual) 60.0 % (40.0-70.0) 10/10/20 18:18 Band Neutrophils % 27.0 % 10/10/20 18:18 Lymphocytes % (Manual) 4.0 % (13.4-35.0) L 10/10/20 18:18 Monocytes % (Manual) 9.0 % (0.0-7.3) H 10/10/20 18:18 Eosinophils % (Manual) 4.0 % (0.0-4.3) 10/10/20 10:48 Metamyelocytes % 1.0 % 10/10/20 10:48 Nucleated RBC % Not Reportable 10/10/20 18:18 Seg Neutrophils # 16.1 K/mm3 (1.8-7.7) H 10/11/20 02:00 Seg Neutrophils # Man 13.8 K/mm3 (1.8-7.7) H 10/10/20 18:18 Band Neutrophils # 6.2 K/mm3 10/10/20 18:18 Lymphocytes # (Manual) 0.9 K/mm3 (1.2-5.4) L 10/10/20 18:18 Abs React Lymphs (Man) 0.0 K/mm3 10/10/20 18:18 Monocytes # (Manual) 2.1 K/mm3 (0.0-0.8) H 10/10/20 18:18 Eosinophils # (Manual) 0.0 K/mm3 (0.0-0.4) 10/10/20 18:18 Basophils # (Manual) 0.0 K/mm3 (0.0-0.1) 10/10/20 18:18 Metamyelocytes # 0.0 K/mm3 10/10/20 18:18 Myelocytes # 0.0 K/mm3 10/10/20 18:18 Promyelocytes # 0.0 K/mm3 10/10/20 18:18 Blast Cells # 0.0 K/mm3 10/10/20 18:18 WBC Morphology Not Reportable 10/10/20 18:18 Hypersegmented Neuts Not Reportable 10/10/20 18:18 Hyposegmented Neuts Not Reportable 10/10/20 18:18 Hypogranular Neuts Not Reportable 10/10/20 18:18 Smudge Cells Not Reportable 10/10/20 18:18 Toxic Granulation Not Reportable 10/10/20 18:18 Toxic Vacuolation Not Reportable 10/10/20 18:18 Dohle Bodies Not Reportable 10/10/20 18:18 Pelger-Huet Anomaly Not Reportable 10/10/20 18:18 Dionicio Rods Not Reportable 10/10/20 18:18 Platelet Estimate Consistent w auto 10/10/20 18:18 Clumped Platelets Not Reportable 10/10/20 18:18 Plt Clumps, EDTA Not Reportable 10/10/20 18:18 Large Platelets Rare 10/10/20 18:18 Giant Platelets Rare 10/10/20 18:18 Platelet Satelliting Not Reportable 10/10/20 18:18 Plt Morphology Comment Not Reportable 10/10/20 18:18 RBC Morphology Not Reportable 10/10/20 18:18 Dimorphic RBCs Not Reportable 10/10/20 18:18 Polychromasia Not Reportable 10/10/20 18:18 Hypochromasia Not Reportable 10/10/20 18:18 Poikilocytosis Not Reportable 10/10/20 18:18 Anisocytosis Not Reportable 10/10/20 18:18 Microcytosis Not Reportable 10/10/20 18:18 Macrocytosis Not Reportable 10/10/20 18:18 Spherocytes Not Reportable 10/10/20 18:18 Pappenheimer Bodies Not Reportable 10/10/20 18:18 Sickle Cells Not Reportable 10/10/20 18:18 Target Cells Not Reportable 10/10/20 18:18 Tear Drop Cells Not Reportable 10/10/20 18:18 Ovalocytes Not Reportable 10/10/20 18:18 Helmet Cells Not Reportable 10/10/20 18:18 [place] Bodies Not Reportable 10/10/20 18:18 [place] Rings Not Reportable 10/10/20 18:18 [place] Cells Not Reportable 10/10/20 18:18 Bite Cells Not Reportable 10/10/20 18:18 Crenated Cell Not Reportable 10/10/20 18:18 Elliptocytes Not Reportable 10/10/20 18:18 Acanthocytes (Spur) Not Reportable 10/10/20 18:18 Rouleaux Not Reportable 10/10/20 18:18 Hemoglobin C Crystals Not Reportable 10/10/20 18:18 Schistocytes Not Reportable 10/10/20 18:18 Malaria parasites Not Reportable 10/10/20 18:18 Mauricio Bodies Not Reportable 10/10/20 18:18 Hem Pathologist Commnt No 10/10/20 18:18 PT 13.8 Sec. (12.2-14.9) 10/10/20 18:18 INR 1.07 (0.87-1.13) 10/10/20 18:18 APTT 26.9 Sec. (24.2-36.6) 10/10/20 18:18 D-Dimer 679.5 ng/mlDDU (0-234) H 10/10/20 10:48 Heparin Anti-Xa Level 0.22 U.I./ml (0.3-0.7) L 10/11/20 08:35 ABG pH 7.545 (7.320-7.450) H 10/12/20 03:53 POC ABG pCO2 54.6 mmHg (32.0-48.0) H 10/12/20 03:53 ABG pCO2 75.3 mm Hg 10/10/20 15:50 POC ABG pO2 231.9 mmHg (83-108) H 10/12/20 03:53 ABG pO2 60.3 mm Hg (80.0-90.0) L 10/10/20 15:50 POC ABG HCO3 46.2 10/12/20 03:53 ABG HCO3 32.0 mmol/L (20.0-26.0) H 10/10/20 15:50 ABG O2 Saturation 99.5 (0-100) 10/12/20 03:53 ABG O2 Content 17.7 (0.0-44) 10/10/20 15:50 POC ABG Base Excess 20.7 10/12/20 03:53 ABG Base Excess 2.2 mmol/L (-2.0-3.0) 10/10/20 15:50 ABG Hemoglobin 12.2 (12.0-17.5) 10/12/20 03:53 ABG Oxyhemoglobin 98.5 (94-98) H 10/12/20 03:53 ABG Carboxyhemoglobin 1.4 % (0.0-5.0) 10/10/20 15:50 ABG Methemoglobin 0.3 (0.0-1.5) 10/12/20 03:53 ABG Sodium 150.5 mmol/L (136.0-145.0) H 10/12/20 03:53 ABG Potassium 3.2 mmol/L (3.40-4.50) L 10/12/20 03:53 ABG Chloride 96.0 mmol/L (98-107) L 10/12/20 03:53 ABG Glucose 148 mg/dL (65-95) H 10/12/20 03:53 VBG pH 6.870 (7.320-7.420) L* 10/10/20 10:48 Oxyhemoglobin 84.4 % (95.0-99.0) L 10/10/20 15:50 Carboxyhemoglobin 0.7 (0.5-1.5) 10/12/20 03:53 FiO2 100 % 10/10/20 15:50 FiO2 % 70 10/12/20 03:53 Sodium 155 mmol/L (137-145) H 10/12/20 04:00 Potassium 3.3 mmol/L (3.6-5.0) L 10/12/20 04:00 Chloride 97.9 mmol/L (98-107) L 10/12/20 04:00 Carbon Dioxide 37 mmol/L (22-30) H 10/11/20 02:00 Anion Gap 13 mmol/L 10/12/20 04:00 BUN 29 mg/dL (9-20) H 10/11/20 02:00 Creatinine 2.6 mg/dL (0.8-1.3) H 10/11/20 02:00 Estimated GFR 23 ml/min 10/12/20 04:00 BUN/Creatinine Ratio 15 % 10/12/20 04:00 Glucose 92 mg/dL (75-100) 10/11/20 02:00 POC Glucose 137 mg/dL (70-105) H 10/12/20 05:12 Hemoglobin A1c 6.0 % (4-6) 10/11/20 02:00 Lactic Acid 4.00 mmol/L (0.7-2.0) H* 10/10/20 14:20 Calcium 8.7 mg/dL (8.4-10.2) 10/11/20 02:00 Phosphorus 3.00 mg/dL (2.5-4.5) 10/11/20 15:45 Magnesium 1.70 mg/dL (1.7-2.3) 10/11/20 15:45 Ferritin 81.4 ng/mL (30.0-300.0) 10/10/20 10:48 Total Bilirubin 0.60 mg/dL (0.1-1.2) 10/11/20 02:00 AST 80 units/L (5-40) H 10/11/20 02:00 ALT 59 units/L (7-56) H 10/11/20 02:00 Alkaline Phosphatase 52 units/L (35-129) 10/11/20 02:00 Ammonia 214.0 umol/L (25-60) H 10/10/20 10:46 Lactate Dehydrogenase 386 units/L (91-180) H 10/10/20 10:48 Total Creatine Kinase 1192 units/L (55-170) H 10/10/20 18:18 CK-MB (CK-2) 21.7 ng/mL (0.0-4.0) H 10/10/20 18:18 CK-MB (CK-2) Rel Index 1.8 (0-4) 10/10/20 18:18 Troponin T 0.201 ng/mL (0.00-0.029) H* D 10/11/20 02:00 C-Reactive Protein 0.90 mg/dL (0.00-1.30) 10/10/20 10:48 NT-Pro-B Natriuret Pep 1187 pg/mL (0-900) H 10/10/20 10:46 Total Protein 6.8 g/dL (6.3-8.2) 10/11/20 02:00 Albumin 3.6 g/dL (3.9-5) L 10/11/20 02:00 Albumin/Globulin Ratio 1.1 % 10/11/20 02:00 Triglycerides 129 mg/dL (2-149) 10/10/20 18:18 Cholesterol 138 mg/dL (50-199) 10/10/20 18:18 LDL Cholesterol Direct 76 mg/dL (50-130) 10/10/20 18:18 HDL Cholesterol 49 mg/dL (40-59) 10/10/20 18:18 Cholesterol/HDL Ratio 2.81 % 10/10/20 18:18 Procalcitonin 0.09 ng/mL (<0.15) 10/10/20 10:48 TSH 6.260 mlU/mL (0.270-4.200) H 10/10/20 10:46 Arterial Blood Glucose 148 mg/dL (65-95) H 10/12/20 03:53 Arterial Blood Ionized Calcium 3.8 mg/dL (4.6-5.3) L 10/12/20 03:53 Urine Color Yellow (Yellow) 10/11/20 13:30 Urine Turbidity Slightly-cloudy (Clear) 10/11/20 13:30 Urine pH 9.0 (5.0-7.0) H 10/11/20 13:30 Ur Specific Hermann 1.012 (1.003-1.030) 10/11/20 13:30 Urine Protein 30 mg/dl mg/dL (Negative) 10/11/20 13:30 Urine Glucose (UA) Neg mg/dL (Negative) 10/11/20 13:30 Urine Ketones Neg mg/dL (Negative) 10/11/20 13:30 Urine Blood Mod (Negative) 10/11/20 13:30 Urine Nitrite Neg (Negative) 10/11/20 13:30 Urine Bilirubin Neg (Negative) 10/11/20 13:30 Urine Urobilinogen < 2.0 mg/dL (<2.0) 10/11/20 13:30 Ur Leukocyte Esterase Tr (Negative) 10/11/20 13:30 Urine WBC (Auto) 18.0 /HPF (0.0-6.0) H 10/11/20 13:30 Urine RBC (Auto) 150.0 /HPF (0.0-6.0) 10/11/20 13:30 U Epithel Cells (Auto) < 1.0 /HPF (0-13.0) 10/11/20 13:30 Urine Mucus Few /HPF 10/11/20 13:30 Urine Eosinophils None seen (None Seen) 10/11/20 13:30 Urine Creatinine 80.5 mg/dL (0.1-20.0) H 10/11/20 13:30 Urine Sodium 110 mmol/L 10/11/20 13:30 Urine Opiates Screen Negative 10/10/20 10:50 Urine Methadone Screen Negative 10/10/20 10:50 Ur Barbiturates Screen Negative 10/10/20 10:50 Ur Phencyclidine Scrn Negative 10/10/20 10:50 Ur Amphetamines Screen Negative 10/10/20 10:50 U Benzodiazepines Scrn Negative 10/10/20 10:50 Urine Cocaine Screen Negative 10/10/20 10:50 U Marijuana (THC) Screen Positive 10/10/20 10:50 Drugs of Abuse Note Disclamer 10/10/20 10:50 Plasma/Serum Alcohol < 0.01 % (0-0.07) 10/10/20 10:48 Coronavirus (PCR) Negative (Negative) 10/11/20 Unknown Blood Type AB POSITIVE 10/10/20 10:48 Antibody Screen Negative 10/10/20 10:48 Microbiology: Microbiology 10/10/20 10:48 Peripheral/Venous Blood Culture - Preliminary NO GROWTH AFTER 24 HOURS 10/10/20 10:46 Peripheral/Venous Blood Culture - Preliminary NO GROWTH AFTER 24 HOURS [place]/IV: Voiding Method Indwelling Catheter Active Medications - Current Medications Current Medications: Generic Name Dose Route Start Last Admin Trade Name Freq PRN Reason Stop Dose Admin Acetaminophen 650 mg 10/10/20 21:51 Acetaminophen 325 Mg Tab PO Q4H PRN Pain MILD(1-3)/Fever >100.5/SALVADOR Acetaminophen 650 mg 10/11/20 11:24 10/11/20 12:05 Acetaminophen 650 Mg Rect Supp VT 650 mg Q6H PRN Administration Fever >101 Albuterol 2.5 mg 10/11/20 13:12 Albuterol 2.5 Mg/3 Ml Nebu IH Q6HRT PRN Shortness Of Breath Lipase/Protease/Amylase 1 each 10/10/20 22:18 Lipase 10,500/Protease 25,000/Amylase 43,750 (Units) Dr Cap FEEDTUBE PRN PRN For Clogged Feeding Tube Dexamethasone 6 mg 10/11/20 22:00 10/11/20 21:40 Dexamethasone 4 Mg/Ml Vial IV 10/19/20 22:01 6 mg Q24HR@2200 PEPITO Administration Famotidine 20 mg 10/10/20 22:15 10/11/20 09:13 Famotidine 20 Mg/2 Ml Inj IV 20 mg DAILY PEPITO Administration Heparin Sodium (Porcine) 5,000 unit 10/11/20 22:00 10/11/20 21:46 Heparin 5,000 Unit/1 Ml Vial SUB-Q 5,000 unit Q12HR PEPITO Administration Hydralazine HCl 5 mg 10/11/20 03:43 10/11/20 03:49 Hydralazine 20 Mg/1 Ml Inj IV 5 mg Q4HR PRN Administration Hypertension Hydromorphone HCl 0.5 mg 10/10/20 21:51 Hydromorphone 1 Mg/1 Ml Inj IV Q3H PRN Pain , Severe (7-10) Hydrophilic Ointment 1 applic 10/10/20 10:34 Lip Therapy Vaseline TP Q2HR PRN Dry Lips Propofol 1,000 mg in 100 mls @ 4.23 mls/hr 10/10/20 12:00 10/12/20 02:52 Diprivan 10 Mg/Ml IV 20 mcg/kg/min TITR PEPITO 16.92 mls/hr Administration Protocol 5 MCG/KG/MIN Nitroglycerin/Dextrose 50 mg in 250 mls @ 3 mls/hr 10/10/20 13:00 10/10/20 13:17 Tridil Drip 50mg/250ml IV 0 mcg/min TITR PEPITO 0 mls/hr Titration Protocol 10 MCG/MIN Norepinephrine 8 mg/ Sodium 250 mls @ 3.75 mls/hr 10/10/20 14:00 10/10/20 22:15 Chloride IV 0 mcg/min TITRATE PEPITO 0 mls/hr Titration Protocol 2 MCG/MIN Furosemide 100 mg/ Sodium 100 mls @ 5 mls/hr 10/10/20 17:00 10/12/20 04:26 Chloride IV 5 mg/hr TITR PEPITO 5 mls/hr Administration Protocol Titrate Epinephrine 8 mg/ Sodium 250 mls @ 3.75 mls/hr 10/10/20 18:00 Chloride IV DIRECT PEPITO Protocol 2 MCG/MIN Cefepime HCl 2 gm in 100 mls @ 200 mls/hr 10/11/20 11:00 10/11/20 22:08 Cefepime/Ns 2 Gm/100 Ml IV 200 mls/hr Q12H PEPITO Administration Protocol Metoclopramide HCl 10 mg 10/10/20 21:51 Metoclopramide 10 Mg/2 Ml Inj IV Q6H PRN Nausea And Vomiting Metoprolol Tartrate 5 mg 10/11/20 12:00 10/12/20 06:14 Metoprolol Tartrate 5 Mg/5 Ml Inj IV 5 mg Q6HR PEPITO Administration Morphine Sulfate 0 mg 10/10/20 17:00 Morphine/Ns 30 Mg-30 Ml [employer] Inj IV DIRECT PEPITO Protocol Multi-Ingred Cream/Lotion/Oil/Oint 1 applic 10/10/20 10:34 Mineral Oil/Petrolatum, White Ophth Oint 3.5 Gm OU Q4HR PRN Dry Eye(s) Naloxone HCl 0.1 mg 10/10/20 16:37 Naloxone 0.4 Mg/1 Ml Inj IV Q2MIN PRN Res Rate </= 8 or 02 SAT < 92% Ondansetron HCl 4 mg 10/10/20 21:51 Ondansetron 4 Mg/2 Ml Inj IV Q3H PRN Nausea And Vomiting Simple Syrup 15 ml 10/10/20 22:18 Simple Syrup 15 Ml FEEDTUBE PRN PRN Hypoglycemia Simple Syrup 30 ml 10/10/20 22:18 Simple Syrup 15 Ml FEEDTUBE PRN PRN Hypoglycemia Sodium Bicarbonate 325 mg 10/10/20 22:18 Sodium Bicarbonate 325 Mg Tab FEEDTUBE PRN PRN For Clogged Feeding Tube Sodium Chloride 10 ml 10/10/20 22:00 10/11/20 21:40 Sodium Chloride 0.9% 10 Ml Flush Syringe IV 10 ml BID PEPITO Administration Sodium Chloride 10 ml 10/10/20 21:51 Sodium Chloride 0.9% 10 Ml Flush Syringe IV PRN PRN LINE FLUSH Nutrition/Malnutrition Assess - Dietary Evaluation Nutrition/Malnutrition Findings: Nutrition Notes Start: 10/11/20 08:38 Freq: Status: Active Protocol: Document 10/11/20 08:38 CW (Rec: 10/11/20 09:04 CW [email or web address]) Nutrition Notes Need for Assessment generated from: MD Order,president + publisher Current Diagnosis Acute Kidney Injury,Sepsis, Hypertension,Respiratory Failure Other Pertinent Diagnosis pneu, Covid 19, NC, pulmonary edema Current Diet TF Labs/Tests Na 149 K 3.3 BUN 29 Cr 2.6 Pertinent Medications lasix KCl 10 meq propofol 25.38 ml/hr (670.032 kcal) Decadron Vancomycin NS 1L [id number] 100 mEq Height 6 ft Weight 132.1 kg [place] Body Weight (kg) 80.90 BMI 39.4 Weight Status Morbidly Obese Subjective/Other Information MD consult for write manage TF and evaluate nutrition intake . Pt on mechanical vent. Recommend nepro TF regimen d/t poor renal functioning. Percent of energy/protein needs met: 0%/0% Burn Absent Trauma Absent Skin Integrity/Comment Intact Current % PO Negligible #1 Nutrition Diagnosis Inadequate oral intake Etiology pt unable to consume PO As Evidenced by Signs and Symptoms pt on mechanical vent Is patient on ventilator? Yes Is Patient Ambulatory and/or Out of Bed No REE-([facility]-confined to bed) 2648.304 Kcal/Kg value to use for calculation 16 Approximate Energy Requirements Using 2114 kcal/Kg Calculation Used for Recommendations Kcal/kg Additional Notes protein needs up to 202.25g ( up to 2.5g/kgIBW) fluid needs: 1 ml/kcal or per Nutrition Intervention Change Diet Order: TF regimen Nutrition Support: Nepro at 45 ml/hr with a free water flush of 300 ml q4h. Kcal 1,944 Protein (gm) 87 Fluid (mL) 785 Goal #1 Intitiate TF regimen Goal #2 TF tolerance at goal Anticipated Discharge Needs: unable to determine at this time Follow-Up By: 10/13/20 Additional Comments F/U TF at goal, vent status, TF tolerance, Na labs, renal related labs
[2020-10-11] MEDS: METOPROLOL TARTRATE 5 MG/5 ML INJ IV SCH ×4 (14:56→22:59)
[2020-10-11] MEDS: HEPARIN 5,000 UNIT/1 ML VIAL SUB-Q SCH (21:46)
[2020-10-11] MEDS ORDERED: dexAMETHasone 4 MG/ML VIAL IV SCH (22:00)
[2020-10-11] MEDS ORDERED: VANCOMYCIN 2,000 MG in SODIUM CHLORIDE 0.9% 500 ML 500 ML IV SCH (23:00)
[2020-10-12] MEDS: FUROSEMIDE 100 MG in SODIUM CHLORIDE 0.9% 90 ML IV SCH (04:26)
--- NOTE | 2020-10-12 06:06 | XRay Report ---
CHEST 1 VIEW INDICATION: follow up respiratory failure COMPARISON: One day prior. FINDINGS: Support devices: Unchanged. Heart: Stable. Lungs/Pleura: Bilateral lung disease has improved. Today's study shows only minimal disease. IMPRESSION: 1. Definite improvement. Signer Name: Babatunde Ortega MD Signed: 10/12/2020 6:01 AM Workstation Name: [id number]
[2020-10-12] MEDS: METOPROLOL TARTRATE 5 MG/5 ML INJ IV SCH ×4 (06:14→23:23)
[2020-10-12 06:15] LABS: Hematocrit 35.2 % (35.5-45.6); Hemoglobin 11.6 gm/dl (11.8-15.2); Mean Corpuscular HGB Conc 33 % (32-34); Mean Corpuscular Volume 88 fl (84-94); Platelet Count 147 K/mm3 (140-440); Red Blood Count 4.01 M/mm3 (3.65-5.03)
[2020-10-12] MEDS: hydrALAZINE 20 MG/1 ML INJ IV PRN (09:22)
[2020-10-12] MEDS: HEPARIN 5,000 UNIT/1 ML VIAL SUB-Q SCH ×2 (09:25→22:24)
[2020-10-12] MEDS: FAMOTIDINE 20 MG/2 ML INJ IV SCH (09:25)
[2020-10-12] MEDS ORDERED: VANCOMYCIN/NS 1 GM/250 ML 1 GM/250 ML BAG IV ONE (10:00)
[2020-10-12] MEDS: POTASSIUM CHLORIDE 20 MEQ 20 MEQ/100 ML BAG IV SCH ×2 (10:35→11:13)
--- NOTE | 2020-10-12 11:30 | Progress Note ---
Assessment and Plan tte reviewed - EF 55-60%, mod LVH, mild diastolic dysfunction. pt remains intubated, sedated, with fine baseline tremor in hands - ? seizure activity. Consider neurology evaluation per primary team. CE's trending downeards, CE elevation appears c/w NSTEMI type II. heparin gtt d/c'd yesterday after bright red bleeding noted from OG tube. Pt with brown/?coffee ground secretions from OG tube today, Hgb&Hct mildly reduced. Cont to hold systemic AC and consider GI consultation per primary. F/u CBC in AM. Optimize BPs - initiate scheduled IV hydralazine, cont IV lopressor. Consider initiation of nitro gtt or cardene gtt if necessary for BP control. Pt receiving lasix gtt. Agree with diuresis if ok per nephrology. Await nephrology recs. Replete K+. F/u BMP and Mg in AM. Overall guarded prognosis. The patient has been seen in conjunction with Dr. Liz Steen who agrees with the assessment and plan of care. - Patient Problems (1) Cardiopulmonary arrest with successful resuscitation Current Visit: Yes Status: Acute (2) Acute respiratory failure Current Visit: Yes Status: Acute Qualifiers: Respiratory failure complication: hypoxia and hypercapnia Qualified Code(s): J96.01 - Acute respiratory failure with hypoxia; J96.02 - Acute respiratory failure with hypercapnia (3) Bilateral pneumonia Current Visit: Yes Status: Acute (4) Sepsis with hypotension Current Visit: Yes Status: Acute (5) Person under investigation for COVID-19 Current Visit: Yes Status: Acute (6) NSTEMI (non-ST elevated myocardial infarction) Current Visit: Yes Status: Acute (7) MOE (acute kidney injury) Current Visit: Yes Status: Acute (8) GI bleed Current Visit: Yes Status: Suspected (9) Acute heart failure with preserved ejection fraction (HFpEF) Current Visit: Yes Status: Acute Subjective Date of service: 10/12/20 Principal diagnosis: Cardiac arrest; Septic Shock; Ac. hypoxemic & hypercapnic resp failure; MOE Interval history: pt remains intubated, sedated, with fine baseline tremor in hands - ? seizure activity. tele reviewed - in SR HR 70s with freq PACs. Objective Last Vital Signs Temp 99.8 F H 10/12/20 08:00 Pulse 72 10/12/20 11:19 Resp 25 H 10/12/20 11:00 BP 128/64 10/12/20 11:19 Pulse Ox 97 10/12/20 11:02 - Physical Examination General: Other (intubated, sedated) Cardiac: Positive: Reg Rate and Rhythm, S1/S2 Lungs: Positive: Decreased Breath Sounds, Oxygen, Ventilated Respirations Neuro: Positive: Other (intubated, sedated) - Labs and Meds CBC 10/11/20 10/12/20 Range/Units 13:30 05:10 WBC 15.0 H 14.3 H (4.5-11.0) K/mm3 RBC 4.24 4.01 (3.65-5.03) M/mm3 Hgb 12.2 11.6 L (11.8-15.2) gm/dl Hct 37.2 35.2 L (35.5-45.6) % Plt Count 169 147 (140-440) K/mm3 Comprehensive Metabolic Panel 10/12/20 Range/Units 04:00 Sodium 155 H (137-145) mmol/L Potassium 3.3 L (3.6-5.0) mmol/L Chloride 97.9 L (98-107) mmol/L Carbon Dioxide 47 H* D (22-30) mmol/L BUN 50 H (9-20) mg/dL Creatinine 3.4 H (0.8-1.3) mg/dL Glucose 146 H (75-100) mg/dL Calcium 8.0 L (8.4-10.2) mg/dL - Imaging and Cardiology EKG: report reviewed, image reviewed Echo: report reviewed - Telemetry EKG Rhythm: Sinus Rhythm - EKG Sinus rhythms and dysrhythmias: sinus rhythm - Allied health notes Allied health notes reviewed: nursing
--- NOTE | 2020-10-12 12:00 | Progress Note ---
Assessment and Plan Cardiac arrest x3 with ROSC Severe septic and cardiogenic shock Acute respiratory failure with hypoxemia and hypercarbia Acute pulmonary edema MOE (acute kidney injury) Lactic acidosis, severe metabolic acidosis Bilateral pneumonia, aspiration pneumonia Elevated troponins - repeat CBC noted, dopplers negative and hemodynamically more stable; will hold on empiric VTE treatment - get neurology consultation - send stool guaiac - get G.I. evaluation, begin enteral nutrition if cleared - reduce set rate to 20/min - repeat lactic acid level in am - COVID-19 test negative - discontinue femoral CVL & A-line - continue care as below otherwise; - de-escalate empiric anti-infective's per ID rec's - follow clinically re: fevers / WBC - begin trickle feeding @ 10 mls/hr in am if H&H stable (suspect NGT bleeding was danay-insertion trauma as now clear) - IV heparin for elevated troponins with possible NSTEMI. (on hold now re: ? G.I. Bleed) - Monitor hemodynamics closely - daily SAT's and SBT assessment as tolerated - wean supplemental oxygen for target O2 sat's > 92% acutely - VAP bundle addressed - continue lung protective strategies - bronchodilators with pulmonary hygiene per RT - wean per pulmonary driven protocols otherwise - Monitor urine output closely - bicarbonate infusion - avoid nephrotoxins, renally dose all medications - continue to avoid benzodiazepine's, reduce the possibility of delirium - continue Scopolamine for secretion control - continue wound care per RN/WCN - prn analgesia per CPOT score - Maintenance of sleep-wake cycle, avoid delirium - continue enteral nutritional support at goal rate as tolerated - G.I. & VTE prophylaxis - PT/OT/ROM exercises - continue mobility protocols for pressure ulcer prophylaxis - Monitor hemodynamics closely - continue other care per attending / other consultants - discharge planning ongoing concurrently .... Re-evaluate in am & prn CONDITION: CRITICAL PROGNOSIS: GUARDED CODE STATUS: FULL CODE The high probability of a clinically significant, sudden or life-threatening deterioration of the [respiratory, cardiovascular & neurologic] system(s) required my full and direct attention, intervention and personal management. The aggregate critical care time was [32] minutes without overlap. Time includes spent on; [x] Data Review and interpretation [x] Patient assessment and monitoring of vital signs [x] Documentation [x] Medication orders and management Subjective Date of service: 10/12/20 Principal diagnosis: Cardiac arrest; Septic Shock; Ac. hypoxemic & hypercapnic resp failure; MOE Interval history: Patient is seen today for: Cardiac arrest with ROSC; Severe septic and cardiogenic shock; Acute respiratory failure with hypoxemia and hypercarbia; Acute pulmonary edema; MOE; Lactic acidosis; severe metabolic acidosis; Bilateral pneumonia; aspiration pneumonia; Elevated troponins Seen and examined at bedside; 24hour events reviewed; nursing and respiratory care staff consulted; no adverse overnight events reported to me; resting peacefully in bed; AMS is persistent; received some diamox per RN today; not following prompts during daily SAT's still; no gross bleeding; awaiting G.I. evaluation and remains NPO Objective Vital Signs - 12hr 10/12/20 10/12/20 10/12/20 00:10 00:20 00:30 Temperature Pulse Rate 74 73 74 Pulse Rate [ From Monitor] Respiratory 25 H 25 H 26 H Rate Blood Pressure 153/91 153/91 144/81 O2 Sat by Pulse 100 99 100 Oximetry 10/12/20 10/12/20 10/12/20 00:40 00:50 01:00 Temperature Pulse Rate 67 73 73 Pulse Rate [ From Monitor] Respiratory 25 H 25 H 25 H Rate Blood Pressure 144/81 144/81 148/87 O2 Sat by Pulse 100 99 99 Oximetry 10/12/20 10/12/20 10/12/20 01:10 01:20 01:30 Temperature Pulse Rate 73 80 78 Pulse Rate [ From Monitor] Respiratory 25 H 24 25 H Rate Blood Pressure 148/87 148/87 151/86 O2 Sat by Pulse 100 100 99 Oximetry 10/12/20 10/12/20 10/12/20 01:40 01:50 02:00 Temperature Pulse Rate 74 73 81 Pulse Rate [ From Monitor] Respiratory 25 H 25 H 25 H Rate Blood Pressure 151/86 148/87 146/95 O2 Sat by Pulse 100 99 100 Oximetry 10/12/20 10/12/20 10/12/20 02:10 02:20 02:30 Temperature Pulse Rate 73 70 72 Pulse Rate [ From Monitor] Respiratory 25 H 25 H 25 H Rate Blood Pressure 146/95 146/95 140/72 O2 Sat by Pulse 99 100 100 Oximetry 10/12/20 10/12/20 10/12/20 02:40 02:50 03:00 Temperature Pulse Rate 73 70 74 Pulse Rate [ From Monitor] Respiratory 25 H 25 H 24 Rate Blood Pressure 140/72 140/72 143/79 O2 Sat by Pulse 100 100 99 Oximetry 10/12/20 10/12/20 10/12/20 03:10 03:20 03:30 Temperature Pulse Rate 70 75 72 Pulse Rate [ From Monitor] Respiratory 25 H 25 H 15 Rate Blood Pressure 143/79 143/79 145/88 O2 Sat by Pulse 99 99 99 Oximetry 10/12/20 10/12/20 10/12/20 03:40 03:50 04:00 Temperature 99.4 F Pulse Rate 71 68 74 Pulse Rate [ 95 H From Monitor] Respiratory 15 25 H 26 H Rate Blood Pressure 145/88 145/88 150/93 O2 Sat by Pulse 99 99 98 Oximetry 10/12/20 10/12/20 10/12/20 04:10 04:12 04:20 Temperature Pulse Rate 72 70 73 Pulse Rate [ From Monitor] Respiratory 25 H 25 H 25 H Rate Blood Pressure 150/93 150/93 150/93 O2 Sat by Pulse 99 99 98 Oximetry 10/12/20 10/12/20 10/12/20 04:24 04:30 04:40 Temperature Pulse Rate 76 71 72 Pulse Rate [ From Monitor] Respiratory 25 H 25 H Rate Blood Pressure 150/93 160/91 160/91 O2 Sat by Pulse 99 99 97 Oximetry 10/12/20 10/12/20 10/12/20 04:50 05:00 05:10 Temperature Pulse Rate 71 77 71 Pulse Rate [ From Monitor] Respiratory 25 H 25 H 25 H Rate Blood Pressure 160/91 O2 Sat by Pulse 98 97 99 Oximetry 10/12/20 10/12/20 10/12/20 05:20 05:30 05:40 Temperature Pulse Rate 67 69 73 Pulse Rate [ From Monitor] Respiratory 25 H 25 H 17 Rate Blood Pressure 164/98 164/98 148/62 O2 Sat by Pulse 97 98 98 Oximetry 10/12/20 10/12/20 10/12/20 05:50 06:00 06:10 Temperature Pulse Rate 70 65 68 Pulse Rate [ From Monitor] Respiratory 21 20 12 Rate Blood Pressure 148/62 148/62 150/88 O2 Sat by Pulse 99 98 96 Oximetry 10/12/20 10/12/20 10/12/20 06:14 06:20 06:30 Temperature Pulse Rate 80 68 69 Pulse Rate [ From Monitor] Respiratory 12 17 Rate Blood Pressure 150/88 150/88 150/88 O2 Sat by Pulse 98 97 Oximetry 10/12/20 10/12/20 10/12/20 06:40 06:50 07:00 Temperature Pulse Rate 66 67 66 Pulse Rate [ From Monitor] Respiratory 18 16 16 Rate Blood Pressure 146/81 146/81 149/83 O2 Sat by Pulse 99 98 99 Oximetry 10/12/20 10/12/20 10/12/20 07:10 07:20 07:30 Temperature Pulse Rate 67 69 72 Pulse Rate [ From Monitor] Respiratory 12 18 19 Rate Blood Pressure 149/83 149/83 146/80 O2 Sat by Pulse 98 99 99 Oximetry 10/12/20 10/12/20 10/12/20 07:40 07:49 07:50 Temperature Pulse Rate 66 62 69 Pulse Rate [ From Monitor] Respiratory 15 25 H Rate Blood Pressure 146/80 178/84 146/80 O2 Sat by Pulse 98 99 97 Oximetry 10/12/20 10/12/20 10/12/20 08:00 08:10 08:20 Temperature 99.8 F H Pulse Rate 71 64 68 Pulse Rate [ 64 From Monitor] Respiratory 25 H 25 H 25 H Rate Blood Pressure 146/80 136/88 136/88 O2 Sat by Pulse 97 99 99 Oximetry 10/12/20 10/12/20 10/12/20 08:30 08:40 08:50 Temperature Pulse Rate 73 77 73 Pulse Rate [ From Monitor] Respiratory 25 H 25 H 25 H Rate Blood Pressure 146/83 146/83 146/83 O2 Sat by Pulse 98 98 98 Oximetry 10/12/20 10/12/20 10/12/20 09:00 09:10 09:20 Temperature Pulse Rate 73 73 77 Pulse Rate [ From Monitor] Respiratory 25 H 25 H 25 H Rate Blood Pressure 146/83 172/97 172/97 O2 Sat by Pulse 99 99 99 Oximetry 10/12/20 10/12/20 10/12/20 09:22 09:30 09:40 Temperature Pulse Rate 70 76 82 Pulse Rate [ From Monitor] Respiratory 25 H 25 H Rate Blood Pressure 198/90 172/97 168/84 O2 Sat by Pulse 99 99 Oximetry 10/12/20 10/12/20 10/12/20 09:50 10:00 10:10 Temperature Pulse Rate 81 89 86 Pulse Rate [ From Monitor] Respiratory 25 H 25 H 25 H Rate Blood Pressure 168/84 168/84 178/88 O2 Sat by Pulse 98 99 98 Oximetry 10/12/20 10/12/20 10/12/20 10:20 10:30 10:40 Temperature Pulse Rate 80 80 75 Pulse Rate [ From Monitor] Respiratory 25 H 25 H 25 H Rate Blood Pressure 178/88 178/88 179/82 O2 Sat by Pulse 98 99 98 Oximetry 10/12/20 10/12/20 10/12/20 10:50 11:00 11:02 Temperature Pulse Rate 75 69 71 Pulse Rate [ From Monitor] Respiratory 25 H 25 H Rate Blood Pressure 179/82 179/82 133/64 O2 Sat by Pulse 97 98 97 Oximetry 10/12/20 11:19 Temperature Pulse Rate 72 Pulse Rate [ From Monitor] Respiratory Rate Blood Pressure 128/64 O2 Sat by Pulse Oximetry Constitutional: no acute distress, other (middle aged obese male with mildly increased respiratory efort at rest) Eyes: non-icteric ENT: oropharynx moist, other (ETT 23 cm ANNIE) Neck: supple, no lymphadenopathy, no JVD Effort: normal Ascultation: Bilateral: diminished breath sounds, rhonchi (scant) Percussion: Bilateral: not dull Cardiovascular: regular rate and rhythm Gastrointestinal: normoactive bowel sounds, soft, non-tender, non-distended Integumentary: normal Extremities: no cyanosis, no edema, pulses normal, no ischemia or petechiae Neurologic: pupils equal and round, unable to assess Psychiatric: other (unable to assess re: AMS) CBC and BMP: 10/13/20 04:52 10/13/20 04:52 ABG, PT/INR, D-dimer: ABG ABG pH 7.545 (7.320-7.450) H 10/12/20 03:53 POC ABG pCO2 54.6 mmHg (32.0-48.0) H 10/12/20 03:53 ABG pCO2 75.3 mm Hg 10/10/20 15:50 POC ABG pO2 231.9 mmHg (83-108) H 10/12/20 03:53 ABG pO2 60.3 mm Hg (80.0-90.0) L 10/10/20 15:50 POC ABG HCO3 46.2 10/12/20 03:53 ABG O2 Saturation 99.5 (0-100) 10/12/20 03:53 PT/INR, D-dimer PT 13.8 Sec. (12.2-14.9) 10/10/20 18:18 INR 1.07 (0.87-1.13) 10/10/20 18:18 D-Dimer 679.5 ng/mlDDU (0-234) H 10/10/20 10:48 Abnormal lab findings: Abnormal Labs 10/10/20 10/10/20 10/10/20 10:46 10:46 10:46 WBC RBC Hgb Hct Lymph % (Auto) Lymph # (Auto) Seg Neutrophils % Lymphocytes % (Manual) Monocytes % (Manual) Seg Neutrophils # Seg Neutrophils # Man Lymphocytes # (Manual) Monocytes # (Manual) D-Dimer Heparin Anti-Xa Level ABG pH POC ABG pCO2 POC ABG pO2 ABG pO2 ABG HCO3 ABG O2 Saturation ABG Oxyhemoglobin ABG Sodium ABG Potassium ABG Chloride ABG Glucose VBG pH Oxyhemoglobin Sodium Potassium Chloride Carbon Dioxide BUN Creatinine Glucose POC Glucose Lactic Acid 13.60 H* Calcium AST ALT Ammonia 214.0 H Lactate Dehydrogenase Total Creatine Kinase CK-MB (CK-2) Troponin T NT-Pro-B Natriuret Pep Total Protein Albumin TSH 6.260 H Arterial Blood Glucose Arterial Blood Ionized Calcium Urine pH Urine WBC (Auto) Urine Creatinine 10/10/20 10/10/20 10/10/20 10:46 10:48 10:48 WBC RBC 5.28 H Hgb 15.5 H Hct 48.8 H Lymph % (Auto) Lymph # (Auto) Seg Neutrophils % Lymphocytes % (Manual) 42.0 H Monocytes % (Manual) Seg Neutrophils # Seg Neutrophils # Man Lymphocytes # (Manual) Monocytes # (Manual) D-Dimer Heparin Anti-Xa Level ABG pH POC ABG pCO2 POC ABG pO2 ABG pO2 ABG HCO3 ABG O2 Saturation ABG Oxyhemoglobin ABG Sodium ABG Potassium ABG Chloride ABG Glucose VBG pH Oxyhemoglobin Sodium Potassium 3.3 L Chloride 91.2 L Carbon Dioxide BUN Creatinine 1.8 H Glucose 231 H POC Glucose Lactic Acid Calcium AST 60 H ALT 57 H Ammonia Lactate Dehydrogenase Total Creatine Kinase CK-MB (CK-2) Troponin T NT-Pro-B Natriuret Pep 1187 H Total Protein 9.0 H Albumin TSH Arterial Blood Glucose Arterial Blood Ionized Calcium Urine pH Urine WBC (Auto) Urine Creatinine 10/10/20 10/10/20 10/10/20 10:48 10:48 10:48 WBC RBC Hgb Hct Lymph % (Auto) Lymph # (Auto) Seg Neutrophils % Lymphocytes % (Manual) Monocytes % (Manual) Seg Neutrophils # Seg Neutrophils # Man Lymphocytes # (Manual) Monocytes # (Manual) D-Dimer 679.5 H Heparin Anti-Xa Level ABG pH POC ABG pCO2 POC ABG pO2 ABG pO2 ABG HCO3 ABG O2 Saturation ABG Oxyhemoglobin ABG Sodium ABG Potassium ABG Chloride ABG Glucose VBG pH 6.870 L* Oxyhemoglobin Sodium Potassium Chloride Carbon Dioxide BUN Creatinine Glucose POC Glucose Lactic Acid Calcium AST ALT Ammonia Lactate Dehydrogenase 386 H Total Creatine Kinase CK-MB (CK-2) Troponin T NT-Pro-B Natriuret Pep Total Protein Albumin TSH Arterial Blood Glucose Arterial Blood Ionized Calcium Urine pH Urine WBC (Auto) Urine Creatinine 10/10/20 10/10/20 10/10/20 14:10 14:20 15:50 WBC RBC Hgb Hct Lymph % (Auto) Lymph # (Auto) Seg Neutrophils % Lymphocytes % (Manual) Monocytes % (Manual) Seg Neutrophils # Seg Neutrophils # Man Lymphocytes # (Manual) Monocytes # (Manual) D-Dimer Heparin Anti-Xa Level ABG pH 7.175 L 7.247 L POC ABG pCO2 85.0 H POC ABG pO2 43.7 L ABG pO2 60.3 L ABG HCO3 32.0 H ABG O2 Saturation 86.1 L ABG Oxyhemoglobin 67.7 L ABG Sodium ABG Potassium ABG Chloride ABG Glucose 247 H VBG pH Oxyhemoglobin 84.4 L Sodium Potassium Chloride Carbon Dioxide BUN Creatinine Glucose POC Glucose Lactic Acid 4.00 H* Calcium AST ALT Ammonia Lactate Dehydrogenase Total Creatine Kinase CK-MB (CK-2) Troponin T NT-Pro-B Natriuret Pep Total Protein Albumin TSH Arterial Blood Glucose 247 H Arterial Blood Ionized Calcium 4.4 L Urine pH Urine WBC (Auto) Urine Creatinine 10/10/20 10/10/20 10/10/20 15:50 16:22 18:18 WBC RBC Hgb Hct Lymph % (Auto) Lymph # (Auto) Seg Neutrophils % Lymphocytes % (Manual) Monocytes % (Manual) Seg Neutrophils # Seg Neutrophils # Man Lymphocytes # (Manual) Monocytes # (Manual) D-Dimer Heparin Anti-Xa Level ABG pH 7.171 L POC ABG pCO2 96.6 H POC ABG pO2 55.3 L ABG pO2 ABG HCO3 ABG O2 Saturation ABG Oxyhemoglobin 81.4 L ABG Sodium ABG Potassium ABG Chloride ABG Glucose 115 H VBG pH Oxyhemoglobin Sodium Potassium Chloride Carbon Dioxide BUN Creatinine Glucose POC Glucose 132 H Lactic Acid Calcium AST ALT Ammonia Lactate Dehydrogenase Total Creatine Kinase 1192 H CK-MB (CK-2) 21.7 H Troponin T 0.377 H* D NT-Pro-B Natriuret Pep Total Protein Albumin TSH Arterial Blood Glucose 115 H Arterial Blood Ionized Calcium Urine pH Urine WBC (Auto) Urine Creatinine 10/10/20 10/10/20 10/10/20 18:18 18:18 22:49 WBC 23.0 H RBC 5.12 H Hgb Hct Lymph % (Auto) Lymph # (Auto) Seg Neutrophils % Lymphocytes % (Manual) 4.0 L Monocytes % (Manual) 9.0 H Seg Neutrophils # Seg Neutrophils # Man 13.8 H Lymphocytes # (Manual) 0.9 L Monocytes # (Manual) 2.1 H D-Dimer Heparin Anti-Xa Level ABG pH POC ABG pCO2 POC ABG pO2 ABG pO2 ABG HCO3 ABG O2 Saturation ABG Oxyhemoglobin ABG Sodium ABG Potassium ABG Chloride ABG Glucose VBG pH Oxyhemoglobin Sodium 146 H Potassium Chloride Carbon Dioxide 34 H D BUN 27 H Creatinine 2.7 H Glucose 102 H POC Glucose Lactic Acid Calcium AST 90 H ALT 66 H Ammonia Lactate Dehydrogenase Total Creatine Kinase CK-MB (CK-2) Troponin T 0.273 H* D NT-Pro-B Natriuret Pep Total Protein Albumin TSH Arterial Blood Glucose Arterial Blood Ionized Calcium Urine pH Urine WBC (Auto) Urine Creatinine 10/11/20 10/11/20 10/11/20 02:00 02:00 02:00 WBC 17.3 H RBC Hgb Hct Lymph % (Auto) 3.9 L Lymph # (Auto) 0.7 L Seg Neutrophils % 93.0 H Lymphocytes % (Manual) Monocytes % (Manual) Seg Neutrophils # 16.1 H Seg Neutrophils # Man Lymphocytes # (Manual) Monocytes # (Manual) D-Dimer Heparin Anti-Xa Level ABG pH POC ABG pCO2 POC ABG pO2 ABG pO2 ABG HCO3 ABG O2 Saturation ABG Oxyhemoglobin ABG Sodium ABG Potassium ABG Chloride ABG Glucose VBG pH Oxyhemoglobin Sodium 149 H Potassium 3.3 L Chloride 95.3 L Carbon Dioxide 37 H BUN 29 H Creatinine 2.6 H Glucose POC Glucose Lactic Acid Calcium AST 80 H ALT 59 H Ammonia Lactate Dehydrogenase Total Creatine Kinase CK-MB (CK-2) Troponin T 0.201 H* D NT-Pro-B Natriuret Pep Total Protein Albumin 3.6 L TSH Arterial Blood Glucose Arterial Blood Ionized Calcium Urine pH Urine WBC (Auto) Urine Creatinine 10/11/20 10/11/20 10/11/20 03:51 08:35 11:15 WBC RBC Hgb Hct Lymph % (Auto) Lymph # (Auto) Seg Neutrophils % Lymphocytes % (Manual) Monocytes % (Manual) Seg Neutrophils # Seg Neutrophils # Man Lymphocytes # (Manual) Monocytes # (Manual) D-Dimer Heparin Anti-Xa Level 0.22 L ABG pH 7.491 H POC ABG pCO2 57.6 H POC ABG pO2 ABG pO2 ABG HCO3 ABG O2 Saturation ABG Oxyhemoglobin ABG Sodium 150.0 H ABG Potassium 3.1 L ABG Chloride 96.0 L ABG Glucose 122 H VBG pH Oxyhemoglobin Sodium Potassium Chloride Carbon Dioxide BUN Creatinine Glucose POC Glucose 151 H Lactic Acid Calcium AST ALT Ammonia Lactate Dehydrogenase Total Creatine Kinase CK-MB (CK-2) Troponin T NT-Pro-B Natriuret Pep Total Protein Albumin TSH Arterial Blood Glucose 122 H Arterial Blood Ionized Calcium 3.9 L Urine pH Urine WBC (Auto) Urine Creatinine 10/11/20 10/11/20 10/11/20 13:30 13:30 13:30 WBC 15.0 H RBC Hgb Hct Lymph % (Auto) Lymph # (Auto) Seg Neutrophils % Lymphocytes % (Manual) Monocytes % (Manual) Seg Neutrophils # Seg Neutrophils # Man Lymphocytes # (Manual) Monocytes # (Manual) D-Dimer Heparin Anti-Xa Level ABG pH POC ABG pCO2 POC ABG pO2 ABG pO2 ABG HCO3 ABG O2 Saturation ABG Oxyhemoglobin ABG Sodium ABG Potassium ABG Chloride ABG Glucose VBG pH Oxyhemoglobin Sodium Potassium Chloride Carbon Dioxide BUN Creatinine Glucose POC Glucose Lactic Acid Calcium AST ALT Ammonia Lactate Dehydrogenase Total Creatine Kinase CK-MB (CK-2) Troponin T NT-Pro-B Natriuret Pep Total Protein Albumin TSH Arterial Blood Glucose Arterial Blood Ionized Calcium Urine pH 9.0 H Urine WBC (Auto) 18.0 H Urine Creatinine 80.5 H 10/11/20 10/11/20 10/12/20 17:17 23:14 03:53 WBC RBC Hgb Hct Lymph % (Auto) Lymph # (Auto) Seg Neutrophils % Lymphocytes % (Manual) Monocytes % (Manual) Seg Neutrophils # Seg Neutrophils # Man Lymphocytes # (Manual) Monocytes # (Manual) D-Dimer Heparin Anti-Xa Level ABG pH 7.545 H POC ABG pCO2 54.6 H POC ABG pO2 231.9 H ABG pO2 ABG HCO3 ABG O2 Saturation ABG Oxyhemoglobin 98.5 H ABG Sodium 150.5 H ABG Potassium 3.2 L ABG Chloride 96.0 L ABG Glucose 148 H VBG pH Oxyhemoglobin Sodium Potassium Chloride Carbon Dioxide BUN Creatinine Glucose POC Glucose 121 H 135 H Lactic Acid Calcium AST ALT Ammonia Lactate Dehydrogenase Total Creatine Kinase CK-MB (CK-2) Troponin T NT-Pro-B Natriuret Pep Total Protein Albumin TSH Arterial Blood Glucose 148 H Arterial Blood Ionized Calcium 3.8 L Urine pH Urine WBC (Auto) Urine Creatinine 10/12/20 10/12/20 10/12/20 04:00 05:10 05:12 WBC 14.3 H RBC Hgb 11.6 L Hct 35.2 L Lymph % (Auto) Lymph # (Auto) Seg Neutrophils % Lymphocytes % (Manual) Monocytes % (Manual) Seg Neutrophils # Seg Neutrophils # Man Lymphocytes # (Manual) Monocytes # (Manual) D-Dimer Heparin Anti-Xa Level ABG pH POC ABG pCO2 POC ABG pO2 ABG pO2 ABG HCO3 ABG O2 Saturation ABG Oxyhemoglobin ABG Sodium ABG Potassium ABG Chloride ABG Glucose VBG pH Oxyhemoglobin Sodium 155 H Potassium 3.3 L Chloride 97.9 L Carbon Dioxide 47 H* D BUN 50 H Creatinine 3.4 H Glucose 146 H POC Glucose 137 H Lactic Acid Calcium 8.0 L AST ALT Ammonia Lactate Dehydrogenase Total Creatine Kinase CK-MB (CK-2) Troponin T 0.125 H* D NT-Pro-B Natriuret Pep Total Protein Albumin TSH Arterial Blood Glucose Arterial Blood Ionized Calcium Urine pH Urine WBC (Auto) Urine Creatinine Chest x-ray: image reviewed (improved bilateral infiltrates) Allied health notes reviewed: nursing
--- NOTE | 2020-10-12 12:09 | Progress Note ---
Assessment and Plan Cultures: SARS CoV2 PCR: negative. 10/10/2020 blood culture: No growth 10/10/2020 ET aspirate culture: no growth so far. 10/11/2020 urine culture: no growth A/P: 55-year-old male with hypertension, asthma, obesity came into the emergency room after receiving the Covid vaccine and passing out in the car at the emergency room bay. Patient was found to be unresponsive with no pulse, ACLS was initi ated: #Sepsis, likely secondary to pneumonia. COVID negative. #Right-sided pneumonia: Possible aspiration during ACLS. #Acute hypoxic respiratory failure: On mechanical ventilation. #MOE: Renally dose antibiotics. #Elevated LFTs: Likely from sepsis #Urine tox screen positive for THC Recs: -vancomycin discontinued -Continue cefepime, renally dosed -added azithromycin for atypical coverage -Follow-up cultures Jose Marquez MD, FACP [facility] ([facility]) O: [phone] F: [phone] Subjective Date of service: 10/12/20 Principal diagnosis: Cardiac arrest; Septic Shock; Ac. hypoxemic & hypercapnic resp failure; MOE Interval history: Low grade fever +. Remains intubated, on the vent. No pressors. Objective - Exam Narrative Exam: Physical Exam: Constitutional: sedated, intubated, on the vent Head, Ears, Nose: Normocephalic, atraumatic. External ears, nose normal Eyes: Conjunctivae/corneas clear. No icterus. No ptosis. Neck: intubated Oral: intubated Cardiovascular: S1, S2 + Respiratory: AE fair bilaterally and equal GI: Soft, bowel sounds + Musculoskeletal:no edema Skin: No rash or abscess Hem/Lymphatic: No palpable cervical or supraclavicular nodes. No lymphangitis Psych: no agitation Neurological: sedated, intubated, on the vent, exam limited - Constitutional Vitals: Vital Signs Temp Pulse Resp BP Pulse Ox 99.8 F H 72 25 H 128/64 97 10/12/20 08:00 10/12/20 11:19 10/12/20 11:00 10/12/20 11:19 10/12/20 11:02 Temperature -Last 24 Hours Temperature 99.8 F Temperature 99.4 F Temperature 99.2 F Temperature 99.7 F Temperature 99.2 F Temperature 99.2 F - Labs CBC & Chem 7: 10/12/20 05:10 10/12/20 04:00 Labs: Abnormal lab results 10/11/20 10/11/20 10/11/20 Range/Units 11:15 13:30 13:30 WBC (4.5-11.0) K/mm3 Hgb (11.8-15.2) gm/dl Hct (35.5-45.6) % ABG pH (7.320-7.450) POC ABG pCO2 (32.0-48.0) mmHg POC ABG pO2 (83-108) mmHg ABG Oxyhemoglobin (94-98) ABG Sodium (136.0-145.0) mmol/L ABG Potassium (3.40-4.50) mmol/L ABG Chloride (98-107) mmol/L ABG Glucose (65-95) mg/dL Sodium (137-145) mmol/L Potassium (3.6-5.0) mmol/L Chloride (98-107) mmol/L Carbon Dioxide (22-30) mmol/L BUN (9-20) mg/dL Creatinine (0.8-1.3) mg/dL Glucose (75-100) mg/dL POC Glucose 151 H (70-105) mg/dL Calcium (8.4-10.2) mg/dL Troponin T (0.00-0.029) ng/mL Arterial Blood Glucose (65-95) mg/dL Arterial Blood Ionized Calcium (4.6-5.3) mg/dL Urine pH 9.0 H (5.0-7.0) Urine WBC (Auto) 18.0 H (0.0-6.0) /HPF Urine Creatinine 80.5 H (0.1-20.0) mg/dL 10/11/20 10/11/20 10/11/20 Range/Units 13:30 17:17 23:14 WBC 15.0 H (4.5-11.0) K/mm3 Hgb (11.8-15.2) gm/dl Hct (35.5-45.6) % ABG pH (7.320-7.450) POC ABG pCO2 (32.0-48.0) mmHg POC ABG pO2 (83-108) mmHg ABG Oxyhemoglobin (94-98) ABG Sodium (136.0-145.0) mmol/L ABG Potassium (3.40-4.50) mmol/L ABG Chloride (98-107) mmol/L ABG Glucose (65-95) mg/dL Sodium (137-145) mmol/L Potassium (3.6-5.0) mmol/L Chloride (98-107) mmol/L Carbon Dioxide (22-30) mmol/L BUN (9-20) mg/dL Creatinine (0.8-1.3) mg/dL Glucose (75-100) mg/dL POC Glucose 121 H 135 H (70-105) mg/dL Calcium (8.4-10.2) mg/dL Troponin T (0.00-0.029) ng/mL Arterial Blood Glucose (65-95) mg/dL Arterial Blood Ionized Calcium (4.6-5.3) mg/dL Urine pH (5.0-7.0) Urine WBC (Auto) (0.0-6.0) /HPF Urine Creatinine (0.1-20.0) mg/dL 10/12/20 10/12/20 10/12/20 Range/Units 03:53 04:00 05:10 WBC 14.3 H (4.5-11.0) K/mm3 Hgb 11.6 L (11.8-15.2) gm/dl Hct 35.2 L (35.5-45.6) % ABG pH 7.545 H (7.320-7.450) POC ABG pCO2 54.6 H (32.0-48.0) mmHg POC ABG pO2 231.9 H (83-108) mmHg ABG Oxyhemoglobin 98.5 H (94-98) ABG Sodium 150.5 H (136.0-145.0) mmol/L ABG Potassium 3.2 L (3.40-4.50) mmol/L ABG Chloride 96.0 L (98-107) mmol/L ABG Glucose 148 H (65-95) mg/dL Sodium 155 H (137-145) mmol/L Potassium 3.3 L (3.6-5.0) mmol/L Chloride 97.9 L (98-107) mmol/L Carbon Dioxide 47 H* D (22-30) mmol/L BUN 50 H (9-20) mg/dL Creatinine 3.4 H (0.8-1.3) mg/dL Glucose 146 H (75-100) mg/dL POC Glucose (70-105) mg/dL Calcium 8.0 L (8.4-10.2) mg/dL Troponin T 0.125 H* D (0.00-0.029) ng/mL Arterial Blood Glucose 148 H (65-95) mg/dL Arterial Blood Ionized Calcium 3.8 L (4.6-5.3) mg/dL Urine pH (5.0-7.0) Urine WBC (Auto) (0.0-6.0) /HPF Urine Creatinine (0.1-20.0) mg/dL 10/12/20 Range/Units 05:12 WBC (4.5-11.0) K/mm3 Hgb (11.8-15.2) gm/dl Hct (35.5-45.6) % ABG pH (7.320-7.450) POC ABG pCO2 (32.0-48.0) mmHg POC ABG pO2 (83-108) mmHg ABG Oxyhemoglobin (94-98) ABG Sodium (136.0-145.0) mmol/L ABG Potassium (3.40-4.50) mmol/L ABG Chloride (98-107) mmol/L ABG Glucose (65-95) mg/dL Sodium (137-145) mmol/L Potassium (3.6-5.0) mmol/L Chloride (98-107) mmol/L Carbon Dioxide (22-30) mmol/L BUN (9-20) mg/dL Creatinine (0.8-1.3) mg/dL Glucose (75-100) mg/dL POC Glucose 137 H (70-105) mg/dL Calcium (8.4-10.2) mg/dL Troponin T (0.00-0.029) ng/mL Arterial Blood Glucose (65-95) mg/dL Arterial Blood Ionized Calcium (4.6-5.3) mg/dL Urine pH (5.0-7.0) Urine WBC (Auto) (0.0-6.0) /HPF Urine Creatinine (0.1-20.0) mg/dL - Imaging and cardiology Chest x-ray: report reviewed, image reviewed (pneumonia +)
[2020-10-12] MEDS: hydrALAZINE 20 MG/1 ML INJ IV SCH ×3 (12:33→23:22)
[2020-10-12] MEDS: HYDROmorphone 1 MG/1 ML INJ IV PRN (12:53)
--- NOTE | 2020-10-12 14:07 | Progress Note ---
Assessment and Plan 1. Acute kidney injury: Vasomotor MOE in the setting of Cardiac arrest and shock. Renal US ordered, pending. Monitor renal function. Creatinine continue to increase. Renal prognosis is guarded. Avoid nephrotoxic agents. Meds dosage based on GFR. Monitor for DISPENSING AUDIOLOGIST needs. 2. FEN: Volume overload, improving, monitor. Hypokalemia, replete K, monitor. Hypernatremia, Lasix drip stopped, monitor. Metabolic alkalosis, diamox, monitor. Monitor lytes and volume status. 3. Acute hypoxic respiratory failure, POA: 2/2 PNA and CHF. COVID test negative. Intubated on vent. 4. Sepsis, POA: 2/2 PNA. Abx. 5. NSTEMI type II: Post cardiac arrest EKG showed no acute ischemic changes. Was on Heparin gtt. Followed by Cards. 6. Acute CHF: Echo showed Normal EF and mild DD. 7. S/p Cardiac arrest. 8. GI bleed. 9. Elevated Transaminases: Trend. 10. HTN: Monitor. Subjective: Patient was seen and examined at the bedside. RN at the bedside. Objective: General appearance: well-developed, appears stated age, intubated, on vent HEENT: ATNC, OMNTSE Neck: trachea midline Respiratory: ctab Heart: regular, S1S2, no murmur Gastrointestinal: soft, normoactive bowel sounds, not tender Integumentary: no rash, warm and dry Ext: no edema Neurologic: not responding Musculoskeletal: no obvious deformity : Tuttle catheter Subjective Date of service: 10/12/20 Principal diagnosis: Cardiac arrest; Septic Shock; Ac. hypoxemic & hypercapnic resp failure; MOE Objective - Vital Signs Vital signs: Vital Signs - 12hr 10/12/20 10/12/20 10/12/20 02:10 02:20 02:30 Temperature Pulse Rate 73 70 72 Pulse Rate [ From Monitor] Respiratory 25 H 25 H 25 H Rate Blood Pressure 146/95 146/95 140/72 O2 Sat by Pulse 99 100 100 Oximetry 10/12/20 10/12/20 10/12/20 02:40 02:50 03:00 Temperature Pulse Rate 73 70 74 Pulse Rate [ From Monitor] Respiratory 25 H 25 H 24 Rate Blood Pressure 140/72 140/72 143/79 O2 Sat by Pulse 100 100 99 Oximetry 10/12/20 10/12/2021 03:10 03:20 03:30 Temperature Pulse Rate 70 75 72 Pulse Rate [ From Monitor] Respiratory 25 H 25 H 15 Rate Blood Pressure 143/79 143/79 145/88 O2 Sat by Pulse 99 99 99 Oximetry 10/12/20 10/12/20 10/12/20 03:40 03:50 04:00 Temperature 99.4 F Pulse Rate 71 68 74 Pulse Rate [ 95 H From Monitor] Respiratory 15 25 H 26 H Rate Blood Pressure 145/88 145/88 150/93 O2 Sat by Pulse 99 99 98 Oximetry 10/12/20 10/12/20 10/12/20 04:10 04:12 04:20 Temperature Pulse Rate 72 70 73 Pulse Rate [ From Monitor] Respiratory 25 H 25 H 25 H Rate Blood Pressure 150/93 150/93 150/93 O2 Sat by Pulse 99 99 98 Oximetry 10/12/20 10/12/20 10/12/20 04:24 04:30 04:40 Temperature Pulse Rate 76 71 72 Pulse Rate [ From Monitor] Respiratory 25 H 25 H Rate Blood Pressure 150/93 160/91 160/91 O2 Sat by Pulse 99 99 97 Oximetry 10/12/20 10/12/20 10/12/20 04:50 05:00 05:10 Temperature Pulse Rate 71 77 71 Pulse Rate [ From Monitor] Respiratory 25 H 25 H 25 H Rate Blood Pressure 160/91 O2 Sat by Pulse 98 97 99 Oximetry 10/12/20 10/12/20 10/12/20 05:20 05:30 05:40 Temperature Pulse Rate 67 69 73 Pulse Rate [ From Monitor] Respiratory 25 H 25 H 17 Rate Blood Pressure 164/98 164/98 148/62 O2 Sat by Pulse 97 98 98 Oximetry 10/12/20 10/12/20 10/12/20 05:50 06:00 06:10 Temperature Pulse Rate 70 65 68 Pulse Rate [ From Monitor] Respiratory 21 20 12 Rate Blood Pressure 148/62 148/62 150/88 O2 Sat by Pulse 99 98 96 Oximetry 10/12/20 10/12/20 10/12/20 06:14 06:20 06:30 Temperature Pulse Rate 80 68 69 Pulse Rate [ From Monitor] Respiratory 12 17 Rate Blood Pressure 150/88 150/88 150/88 O2 Sat by Pulse 98 97 Oximetry 10/12/20 10/12/20 10/12/20 06:40 06:50 07:00 Temperature Pulse Rate 66 67 66 Pulse Rate [ From Monitor] Respiratory 18 16 16 Rate Blood Pressure 146/81 146/81 149/83 O2 Sat by Pulse 99 98 99 Oximetry 10/12/20 10/12/20 10/12/20 07:10 07:20 07:30 Temperature Pulse Rate 67 69 72 Pulse Rate [ From Monitor] Respiratory 12 18 19 Rate Blood Pressure 149/83 149/83 146/80 O2 Sat by Pulse 98 99 99 Oximetry 10/12/20 10/12/20 10/12/20 07:40 07:49 07:50 Temperature Pulse Rate 66 62 69 Pulse Rate [ From Monitor] Respiratory 15 25 H Rate Blood Pressure 146/80 178/84 146/80 O2 Sat by Pulse 98 99 97 Oximetry 10/12/20 10/12/20 10/12/20 08:00 08:10 08:20 Temperature 99.8 F H Pulse Rate 71 64 68 Pulse Rate [ 64 From Monitor] Respiratory 25 H 25 H 25 H Rate Blood Pressure 146/80 136/88 136/88 O2 Sat by Pulse 97 99 99 Oximetry 10/12/20 10/12/20 10/12/20 08:30 08:40 08:50 Temperature Pulse Rate 73 77 73 Pulse Rate [ From Monitor] Respiratory 25 H 25 H 25 H Rate Blood Pressure 146/83 146/83 146/83 O2 Sat by Pulse 98 98 98 Oximetry 10/12/20 10/12/20 10/12/20 09:00 09:10 09:20 Temperature Pulse Rate 73 73 77 Pulse Rate [ From Monitor] Respiratory 25 H 25 H 25 H Rate Blood Pressure 146/83 172/97 172/97 O2 Sat by Pulse 99 99 99 Oximetry 10/12/20 10/12/20 10/12/20 09:22 09:30 09:40 Temperature Pulse Rate 70 76 82 Pulse Rate [ From Monitor] Respiratory 25 H 25 H Rate Blood Pressure 198/90 172/97 168/84 O2 Sat by Pulse 99 99 Oximetry 10/12/20 10/12/20 10/12/20 09:50 10:00 10:10 Temperature Pulse Rate 81 89 86 Pulse Rate [ From Monitor] Respiratory 25 H 25 H 25 H Rate Blood Pressure 168/84 168/84 178/88 O2 Sat by Pulse 98 99 98 Oximetry 10/12/20 10/12/20 10/12/20 10:20 10:30 10:40 Temperature Pulse Rate 80 80 75 Pulse Rate [ From Monitor] Respiratory 25 H 25 H 25 H Rate Blood Pressure 178/88 178/88 179/82 O2 Sat by Pulse 98 99 98 Oximetry 10/12/20 10/12/20 10/12/20 10:50 11:00 11:02 Temperature Pulse Rate 75 69 71 Pulse Rate [ From Monitor] Respiratory 25 H 25 H Rate Blood Pressure 179/82 179/82 133/64 O2 Sat by Pulse 97 98 97 Oximetry 10/12/20 10/12/20 10/12/20 11:19 12:00 12:33 Temperature 99.0 F Pulse Rate 72 79 Pulse Rate [ From Monitor] Respiratory Rate Blood Pressure 128/64 204/97 O2 Sat by Pulse Oximetry 10/12/20 12:53 Temperature Pulse Rate Pulse Rate [ From Monitor] Respiratory 34 H Rate Blood Pressure O2 Sat by Pulse Oximetry - Lab 10/12/20 05:10 10/12/20 04:00 Most recent lab results ABG pH 7.545 (7.320-7.450) H 10/12/20 03:53 ABG pCO2 75.3 mm Hg 10/10/20 15:50 ABG pO2 60.3 mm Hg (80.0-90.0) L 10/10/20 15:50 ABG HCO3 32.0 mmol/L (20.0-26.0) H 10/10/20 15:50 ABG O2 Saturation 99.5 (0-100) 10/12/20 03:53 Calcium 8.0 mg/dL (8.4-10.2) L 10/12/20 04:00 Phosphorus 3.00 mg/dL (2.5-4.5) 10/11/20 15:45 Magnesium 1.70 mg/dL (1.7-2.3) 10/11/20 15:45 Urine Creatinine 80.5 mg/dL (0.1-20.0) H 10/11/20 13:30 Urine Sodium 110 mmol/L 10/11/20 13:30 Medications & Allergies - Medications Allergies/Adverse Reactions: Allergies No Known Allergies Allergy (Unverified 07/06/13 15:19) Home Medications: Home Medications Medication Instructions Recorded Confirmed Last Taken Type Albuterol Sulfate [Ventolin HFA] 2 puff IH Q4H PRN #1 hfa.aer.ad 07/06/13 Unknown Rx Prednisone 40 mg PO QDAY #8 tablet 07/06/13 Unknown Rx Albuterol Mdi (or & Nicu Only) 2 puff IH Q4H PRN #1 inha 07/07/13 Unknown Rx [ProAir HFA Inhaler] Azithromycin [Zithromax Z-KYLE] 500 mg PO QDAY #5 tab 07/07/13 Unknown Rx HYDROcodone/APAP 5-325 [[place] 2 each PO Q6H PRN #30 tablet 07/07/13 Unknown Rx 5-325 mg TAB] predniSONE [Deltasone] 40 mg PO QDAY #10 tablet 07/07/13 Unknown Rx Active Medications: Generic Name Dose Route Start Last Admin Trade Name Freq PRN Reason Stop Dose Admin Acetaminophen 650 mg 10/10/20 21:51 Acetaminophen 325 Mg Tab PO Q4H PRN Pain MILD(1-3)/Fever >100.5/SALVADOR Acetaminophen 650 mg 10/11/20 11:24 10/11/20 12:05 Acetaminophen 650 Mg Rect Supp MA 650 mg Q6H PRN Administration Fever >101 Acetazolamide 500 mg 10/12/20 11:00 10/12/20 11:19 Acetazolamide 500 Mg Vial IV 10/12/20 22:01 500 mg Q12HR PEPITO Administration Albuterol 2.5 mg 10/11/20 13:12 Albuterol 2.5 Mg/3 Ml Nebu IH Q6HRT PRN Shortness Of Breath Lipase/Protease/Amylase 1 each 10/10/20 22:18 Lipase 10,500/Protease 25,000/Amylase 43,750 (Units) Dr Santana FEEDTUBE PRN PRN For Clogged Feeding Tube Famotidine 20 mg 10/10/20 22:15 10/12/20 09:25 Famotidine 20 Mg/2 Ml Inj IV 20 mg DAILY PEPITO Administration Heparin Sodium (Porcine) 5,000 unit 10/11/20 22:00 10/12/20 09:25 Heparin 5,000 Unit/1 Ml Vial SUB-Q 5,000 unit Q12HR PEPITO Administration Hydralazine HCl 20 mg 10/12/20 12:00 10/12/20 12:33 Hydralazine 20 Mg/1 Ml Inj IV 20 mg Q6H PEPITO Administration Hydromorphone HCl 0.5 mg 10/10/20 21:51 10/12/20 12:53 Hydromorphone 1 Mg/1 Ml Inj IV 0.5 mg Q3H PRN Administration Pain , Severe (7-10) Hydrophilic Ointment 1 applic 10/10/20 10:34 Lip Therapy Vaseline TP Q2HR PRN Dry Lips Propofol 1,000 mg in 100 mls @ 4.23 mls/hr 10/10/20 12:00 10/12/20 12:59 Diprivan 10 Mg/Ml IV 20 mcg/kg/min TITR PEPITO 16.92 mls/hr Titration Protocol 5 MCG/KG/MIN Nitroglycerin/Dextrose 50 mg in 250 mls @ 3 mls/hr 10/10/20 13:00 10/10/20 13:17 Tridil Drip 50mg/250ml IV 0 mcg/min TITR PEPITO 0 mls/hr Titration Protocol 10 MCG/MIN Norepinephrine 8 mg/ Sodium 250 mls @ 3.75 mls/hr 10/10/20 14:00 10/10/20 22:15 Chloride IV 0 mcg/min TITRATE PEPITO 0 mls/hr Titration Protocol 2 MCG/MIN Cefepime HCl 2 gm in 100 mls @ 200 mls/hr 10/12/20 22:00 Cefepime/Ns 2 Gm/100 Ml IV Q24H [facility] Protocol Azithromycin 500 mg in 250 mls @ 250 mls/hr 10/12/20 13:00 Zithromax/Ns IV 10/15/20 13:59 Q24H PEPITO Metoclopramide HCl 10 mg 10/10/20 21:51 Metoclopramide 10 Mg/2 Ml Inj IV Q6H PRN Nausea And Vomiting Metoprolol Tartrate 5 mg 10/11/20 12:00 10/12/20 11:19 Metoprolol Tartrate 5 Mg/5 Ml Inj IV 5 mg Q6HR [facility] Administration Multi-Ingred Cream/Lotion/Oil/Oint 1 applic 10/10/20 10:34 Mineral Oil/Petrolatum, White Ophth Oint 3.5 Gm OU Q4HR PRN Dry Eye(s) Ondansetron HCl 4 mg 10/10/20 21:51 Ondansetron 4 Mg/2 Ml Inj IV Q3H PRN Nausea And Vomiting Simple Syrup 15 ml 10/10/20 22:18 Simple Syrup 15 Ml FEEDTUBE PRN PRN Hypoglycemia Simple Syrup 30 ml 10/10/20 22:18 Simple Syrup 15 Ml FEEDTUBE PRN PRN Hypoglycemia Sodium Bicarbonate 325 mg 10/10/20 22:18 Sodium Bicarbonate 325 Mg Tab FEEDTUBE PRN PRN For Clogged Feeding Tube Sodium Chloride 10 ml 10/10/20 22:00 10/12/20 09:25 Sodium Chloride 0.9% 10 Ml Flush Syringe IV 10 ml BID PEPITO Administration Sodium Chloride 10 ml 10/10/20 21:51 Sodium Chloride 0.9% 10 Ml Flush Syringe IV PRN PRN LINE FLUSH
[2020-10-12] MEDS: AZITHROMYCIN/NS 500 MG/250 ML 500 MG/250 ML BAG IV SCH ×2 (14:13→14:17)
--- NOTE | 2020-10-12 14:53 | Progress Note ---
<JOI TAMEZ - Last Filed: 10/12/20 14:48> Assessment and Plan Assessment and plan: -CCM, cardiology, nephrology, infectious disease consulted, appreciate recommendations -Antibiotic therapy -BB and hydralazine IV -Trend CBC and BMP -Mechanical ventilation, wean as tolerated, VAP bundle -Renal US pending -BLE Doppler US pending GI/DVT prophylaxis: SCDs to bilateral lower extremities while in bed, PPI, Heparin subq Dispo: ICU The high probability of a clinically significant, sudden or life threatening deterioration of the [multi] system(s) required my full and direct attention, intervention and personal management. The aggregate critical care time was [35] minutes. This time is in addition to time spent performing reported procedures but includes the following: [x] Data Review and interpretation [x] Patient assessment and monitoring of vital signs [x] Documentation [x] Medication orders and management History Interval history: This is a 55-year-old male with hypertension, asthma, obesity in the emergency by presents the emergency department on 10/10 after receiving a Covid vaccine being found unresponsive in his car in the emergency room by with no pulse and ACLS protocol was initiated from his car to emergency room #21 where it was continued. Patient was intubated after ROSC was achieved and a central line was placed and the patient was initiated on pressors. In the emergency room patient seems to have seizure-like activity and then collapsed and was unresponsive with no palpable pulse and ACLS was again initiated patient with achievement of ROSC. Patient again coded with ACLS protocol in the CT room. Upon arrival to the ICU patient again coded and ROSC was achieved and he was placed on epinephrine, Lasix, heparin and sodium bicarbonate drip and sedated with propofol. An NG tube was placed, A-line was placed. Patient was admitted to the hospitalist service with consult to CCM, nephrology, infectious disease and cardiology. 10/11: Patient COVID-19 PCR is pending and he remains on mechanical ventilation, examination on assist control 400//12/0.95. Patient is scheduled for an echocardiogram and we will obtain bilateral lower extremity Doppler ultrasound given elevated D-dimer. Patient was supposed to have a CTA chest when he coded yesterday. We will begin trickle feeding. This morning patient was on a heparin drip and was noted to have bloody drainage from his NG tube. Heparin drip was discontinued. 10/12: Patient remains on propofol and Lasix drip at the time my examination and he is on assist control 400/25/12/0.60. Patient is hypokalemic this morning which was repleted. Nephrlogy discontinued Lasix drip and Diamox. Patient is hypertensive and has been started on hydralazine and beta-shital IV. He has been titrated off his vasopressors since yesterday. Vancomycin discontinued. Patient is currently on cefepime and azithromycin. Sepsis Right-sided pneumonia NSTEMI type II Acute heart failure GI bleed Leukocytosis Hypokalemia Metabolic alkalosis Hypernatremia Hypochloremia Acute hypoxic respiratory failure Acute kidney injury Transaminitis HTN Obesity Hospitalist Physical - Constitutional Vitals: Temp Pulse Resp BP Pulse Ox 99.0 F 79 34 H 204/97 97 10/12/20 12:00 10/12/20 12:33 10/12/20 12:53 10/12/20 12:33 10/12/20 11:02 General appearance: Present: no acute distress, other (intubated, sedated) - EENT Eyes: Present: PERRL, EOM intact ENT: hearing intact, clear oral mucosa - Neck Neck: Present: supple, normal ROM - Respiratory Respiratory effort: normal Respiratory: bilateral: CTA - Cardiovascular Rhythm: regular Heart Sounds: Present: S1 & S2. Absent: systolic murmur, diastolic murmur - Extremities Extremities: no ischemia, pulses intact, pulses symmetrical, No edema, normal temperature, normal color, Full ROM Peripheral Pulses: within normal limits - Abdominal General gastrointestinal: soft, non-tender, non-distended, normal bowel sounds - Integumentary Integumentary: Present: clear, warm, dry - Psychiatric Psychiatric: cooperative - Neurologic Neurologic: CNII-XII intact, no focal deficits, moves all extremities - Allied Health Allied health notes reviewed: nursing HEART Score - HEART Score EKG: Non-specific Age: 45-65 Troponin: Troponin T 0.125 ng/mL (0.00-0.029) H* D 10/12/20 04:00 Troponin: 1-3x normal limit - Critical Actions Critical Actions: 4-6 pts:12-16.6% risk of adverse cardiac event. Should be admitted Results - Labs CBC & Chem 7: 10/12/20 05:10 10/12/20 04:00 Labs: Laboratory Last Values WBC 14.3 K/mm3 (4.5-11.0) H 10/12/20 05:10 RBC 4.01 M/mm3 (3.65-5.03) 10/12/20 05:10 Hgb 11.6 gm/dl (11.8-15.2) L 10/12/20 05:10 Hct 35.2 % (35.5-45.6) L 10/12/20 05:10 MCV 88 fl (84-94) 10/12/20 05:10 MCH 29 pg (28-32) 10/12/20 05:10 MCHC 33 % (32-34) 10/12/20 05:10 RDW 15.0 % (13.2-15.2) 10/12/20 05:10 Plt Count 147 K/mm3 (140-440) 10/12/20 05:10 Lymph % (Auto) 3.9 % (13.4-35.0) L 10/11/20 02:00 Gates % (Auto) 3.0 % (0.0-7.3) 10/11/20 02:00 Eos % (Auto) 0.0 % (0.0-4.3) 10/11/20 02:00 Baso % (Auto) 0.1 % (0.0-1.8) 10/11/20 02:00 Lymph # (Auto) 0.7 K/mm3 (1.2-5.4) L 10/11/20 02:00 [place] # (Auto) 0.5 K/mm3 (0.0-0.8) 10/11/20 02:00 Eos # (Auto) 0.0 K/mm3 (0.0-0.4) 10/11/20 02:00 Baso # (Auto) 0.0 K/mm3 (0.0-0.1) 10/11/20 02:00 Add Manual Diff Complete 10/10/20 18:18 Total Counted 100 10/10/20 18:18 Seg Neutrophils % 93.0 % (40.0-70.0) H 10/11/20 02:00 Seg Neuts % (Manual) 60.0 % (40.0-70.0) 10/10/20 18:18 Band Neutrophils % 27.0 % 10/10/20 18:18 Lymphocytes % (Manual) 4.0 % (13.4-35.0) L 10/10/20 18:18 Monocytes % (Manual) 9.0 % (0.0-7.3) H 10/10/20 18:18 Eosinophils % (Manual) 4.0 % (0.0-4.3) 10/10/20 10:48 Metamyelocytes % 1.0 % 10/10/20 10:48 Nucleated RBC % Not Reportable 10/10/20 18:18 Seg Neutrophils # 16.1 K/mm3 (1.8-7.7) H 10/11/20 02:00 Seg Neutrophils # Man 13.8 K/mm3 (1.8-7.7) H 10/10/20 18:18 Band Neutrophils # 6.2 K/mm3 10/10/20 18:18 Lymphocytes # (Manual) 0.9 K/mm3 (1.2-5.4) L 10/10/20 18:18 Abs React Lymphs (Man) 0.0 K/mm3 10/10/20 18:18 Monocytes # (Manual) 2.1 K/mm3 (0.0-0.8) H 10/10/20 18:18 Eosinophils # (Manual) 0.0 K/mm3 (0.0-0.4) 10/10/20 18:18 Basophils # (Manual) 0.0 K/mm3 (0.0-0.1) 10/10/20 18:18 Metamyelocytes # 0.0 K/mm3 10/10/20 18:18 Myelocytes # 0.0 K/mm3 10/10/20 18:18 Promyelocytes # 0.0 K/mm3 10/10/20 18:18 Blast Cells # 0.0 K/mm3 10/10/20 18:18 WBC Morphology Not Reportable 10/10/20 18:18 Hypersegmented Neuts Not Reportable 10/10/20 18:18 Hyposegmented Neuts Not Reportable 10/10/20 18:18 Hypogranular Neuts Not Reportable 10/10/20 18:18 Smudge Cells Not Reportable 10/10/20 18:18 Toxic Granulation Not Reportable 10/10/20 18:18 Toxic Vacuolation Not Reportable 10/10/20 18:18 Dohle Bodies Not Reportable 10/10/20 18:18 Pelger-Huet Anomaly Not Reportable 10/10/20 18:18 Dionicio Rods Not Reportable 10/10/20 18:18 Platelet Estimate Consistent w auto 10/10/20 18:18 Clumped Platelets Not Reportable 10/10/20 18:18 Plt Clumps, EDTA Not Reportable 10/10/20 18:18 Large Platelets Rare 10/10/20 18:18 Giant Platelets Rare 10/10/20 18:18 Platelet Satelliting Not Reportable 10/10/20 18:18 Plt Morphology Comment Not Reportable 10/10/20 18:18 RBC Morphology Not Reportable 10/10/20 18:18 Dimorphic RBCs Not Reportable 10/10/20 18:18 Polychromasia Not Reportable 10/10/20 18:18 Hypochromasia Not Reportable 10/10/20 18:18 Poikilocytosis Not Reportable 10/10/20 18:18 Anisocytosis Not Reportable 10/10/20 18:18 Microcytosis Not Reportable 10/10/20 18:18 Macrocytosis Not Reportable 10/10/20 18:18 Spherocytes Not Reportable 10/10/20 18:18 Pappenheimer Bodies Not Reportable 10/10/20 18:18 Sickle Cells Not Reportable 10/10/20 18:18 Target Cells Not Reportable 10/10/20 18:18 Tear Drop Cells Not Reportable 10/10/20 18:18 Ovalocytes Not Reportable 10/10/20 18:18 Helmet Cells Not Reportable 10/10/20 18:18 [place] Bodies Not Reportable 10/10/20 18:18 [place] Rings Not Reportable 10/10/20 18:18 [place] Cells Not Reportable 10/10/20 18:18 Bite Cells Not Reportable 10/10/20 18:18 Crenated Cell Not Reportable 10/10/20 18:18 Elliptocytes Not Reportable 10/10/20 18:18 Acanthocytes (Spur) Not Reportable 10/10/20 18:18 Rouleaux Not Reportable 10/10/20 18:18 Hemoglobin C Crystals Not Reportable 10/10/20 18:18 Schistocytes Not Reportable 10/10/20 18:18 Malaria parasites Not Reportable 10/10/20 18:18 Mauricio Bodies Not Reportable 10/10/20 18:18 Hem Pathologist Commnt No 10/10/20 18:18 PT 13.8 Sec. (12.2-14.9) 10/10/20 18:18 INR 1.07 (0.87-1.13) 10/10/20 18:18 APTT 26.9 Sec. (24.2-36.6) 10/10/20 18:18 D-Dimer 679.5 ng/mlDDU (0-234) H 10/10/20 10:48 Heparin Anti-Xa Level 0.22 U.I./ml (0.3-0.7) L 10/11/20 08:35 ABG pH 7.545 (7.320-7.450) H 10/12/20 03:53 POC ABG pCO2 54.6 mmHg (32.0-48.0) H 10/12/20 03:53 ABG pCO2 75.3 mm Hg 10/10/20 15:50 POC ABG pO2 231.9 mmHg (83-108) H 10/12/20 03:53 ABG pO2 60.3 mm Hg (80.0-90.0) L 10/10/20 15:50 POC ABG HCO3 46.2 10/12/20 03:53 ABG HCO3 32.0 mmol/L (20.0-26.0) H 10/10/20 15:50 ABG O2 Saturation 99.5 (0-100) 10/12/20 03:53 ABG O2 Content 17.7 (0.0-44) 10/10/20 15:50 POC ABG Base Excess 20.7 10/12/20 03:53 ABG Base Excess 2.2 mmol/L (-2.0-3.0) 10/10/20 15:50 ABG Hemoglobin 12.2 (12.0-17.5) 10/12/20 03:53 ABG Oxyhemoglobin 98.5 (94-98) H 10/12/20 03:53 ABG Carboxyhemoglobin 1.4 % (0.0-5.0) 10/10/20 15:50 ABG Methemoglobin 0.3 (0.0-1.5) 10/12/20 03:53 ABG Sodium 150.5 mmol/L (136.0-145.0) H 10/12/20 03:53 ABG Potassium 3.2 mmol/L (3.40-4.50) L 10/12/20 03:53 ABG Chloride 96.0 mmol/L (98-107) L 10/12/20 03:53 ABG Glucose 148 mg/dL (65-95) H 10/12/20 03:53 VBG pH 6.870 (7.320-7.420) L* 10/10/20 10:48 Oxyhemoglobin 84.4 % (95.0-99.0) L 10/10/20 15:50 Carboxyhemoglobin 0.7 (0.5-1.5) 10/12/20 03:53 FiO2 100 % 10/10/20 15:50 FiO2 % 70 10/12/20 03:53 Sodium 155 mmol/L (137-145) H 10/12/20 04:00 Potassium 3.3 mmol/L (3.6-5.0) L 10/12/20 04:00 Chloride 97.9 mmol/L (98-107) L 10/12/20 04:00 Carbon Dioxide 47 mmol/L (22-30) H* D 10/12/20 04:00 Anion Gap 13 mmol/L 10/12/20 04:00 BUN 50 mg/dL (9-20) H 10/12/20 04:00 Creatinine 3.4 mg/dL (0.8-1.3) H 10/12/20 04:00 Estimated GFR 23 ml/min 10/12/20 04:00 BUN/Creatinine Ratio 15 % 10/12/20 04:00 Glucose 146 mg/dL (75-100) H 10/12/20 04:00 POC Glucose 138 mg/dL (70-105) H 10/12/20 11:39 Hemoglobin A1c 6.0 % (4-6) 10/11/20 02:00 Lactic Acid 4.00 mmol/L (0.7-2.0) H* 10/10/20 14:20 Calcium 8.0 mg/dL (8.4-10.2) L 10/12/20 04:00 Phosphorus 3.00 mg/dL (2.5-4.5) 10/11/20 15:45 Magnesium 1.70 mg/dL (1.7-2.3) 10/11/20 15:45 Ferritin 81.4 ng/mL (30.0-300.0) 10/10/20 10:48 Total Bilirubin 0.60 mg/dL (0.1-1.2) 10/11/20 02:00 AST 80 units/L (5-40) H 10/11/20 02:00 ALT 59 units/L (7-56) H 10/11/20 02:00 Alkaline Phosphatase 52 units/L (35-129) 10/11/20 02:00 Ammonia 214.0 umol/L (25-60) H 10/10/20 10:46 Lactate Dehydrogenase 386 units/L (91-180) H 10/10/20 10:48 Total Creatine Kinase 1192 units/L (55-170) H 10/10/20 18:18 CK-MB (CK-2) 21.7 ng/mL (0.0-4.0) H 10/10/20 18:18 CK-MB (CK-2) Rel Index 1.8 (0-4) 10/10/20 18:18 Troponin T 0.125 ng/mL (0.00-0.029) H* D 10/12/20 04:00 C-Reactive Protein 0.90 mg/dL (0.00-1.30) 10/10/20 10:48 NT-Pro-B Natriuret Pep 1187 pg/mL (0-900) H 10/10/20 10:46 Total Protein 6.8 g/dL (6.3-8.2) 10/11/20 02:00 Albumin 3.6 g/dL (3.9-5) L 10/11/20 02:00 Albumin/Globulin Ratio 1.1 % 10/11/20 02:00 Triglycerides 129 mg/dL (2-149) 10/10/20 18:18 Cholesterol 138 mg/dL (50-199) 10/10/20 18:18 LDL Cholesterol Direct 76 mg/dL (50-130) 10/10/20 18:18 HDL Cholesterol 49 mg/dL (40-59) 10/10/20 18:18 Cholesterol/HDL Ratio 2.81 % 10/10/20 18:18 Procalcitonin 0.09 ng/mL (<0.15) 10/10/20 10:48 TSH 6.260 mlU/mL (0.270-4.200) H 10/10/20 10:46 Arterial Blood Glucose 148 mg/dL (65-95) H 10/12/20 03:53 Arterial Blood Ionized Calcium 3.8 mg/dL (4.6-5.3) L 10/12/20 03:53 Urine Color Yellow (Yellow) 10/11/20 13:30 Urine Turbidity Slightly-cloudy (Clear) 10/11/20 13:30 Urine pH 9.0 (5.0-7.0) H 10/11/20 13:30 Ur Specific [place] 1.012 (1.003-1.030) 10/11/20 13:30 Urine Protein 30 mg/dl mg/dL (Negative) 10/11/20 13:30 Urine Glucose (UA) Neg mg/dL (Negative) 10/11/20 13:30 Urine Ketones Neg mg/dL (Negative) 10/11/20 13:30 Urine Blood Mod (Negative) 10/11/20 13:30 Urine Nitrite Neg (Negative) 10/11/20 13:30 Urine Bilirubin Neg (Negative) 10/11/20 13:30 Urine Urobilinogen < 2.0 mg/dL (<2.0) 10/11/20 13:30 Ur Leukocyte Esterase Tr (Negative) 10/11/20 13:30 Urine WBC (Auto) 18.0 /HPF (0.0-6.0) H 10/11/20 13:30 Urine RBC (Auto) 150.0 /HPF (0.0-6.0) 10/11/20 13:30 U Epithel Cells (Auto) < 1.0 /HPF (0-13.0) 10/11/20 13:30 Urine Mucus Few /HPF 10/11/20 13:30 Urine Eosinophils None seen (None Seen) 10/11/20 13:30 Urine Creatinine 80.5 mg/dL (0.1-20.0) H 10/11/20 13:30 Urine Sodium 110 mmol/L 10/11/20 13:30 Random Vancomycin 10.1 ug/mL (0-40.0) 10/12/20 05:00 Urine Opiates Screen Negative 10/10/20 10:50 Urine Methadone Screen Negative 10/10/20 10:50 Ur Barbiturates Screen Negative 10/10/20 10:50 Ur Phencyclidine Scrn Negative 10/10/20 10:50 Ur Amphetamines Screen Negative 10/10/20 10:50 U Benzodiazepines Scrn Negative 10/10/20 10:50 Urine Cocaine Screen Negative 10/10/20 10:50 U Marijuana (THC) Screen Positive 10/10/20 10:50 Drugs of Abuse Note Disclamer 10/10/20 10:50 Plasma/Serum Alcohol < 0.01 % (0-0.07) 10/10/20 10:48 Coronavirus (PCR) Negative (Negative) 10/11/20 Unknown Blood Type AB POSITIVE 10/10/20 10:48 Antibody Screen Negative 10/10/20 10:48 Microbiology: Microbiology 10/10/20 Unknown Tracheal Aspirate Sputum Culture - Final 10/11/20 Unknown Urine,[place] Urine Culture - Final NO GROWTH AFTER 48 HOURS 10/10/20 10:48 Peripheral/Venous Blood Culture - Preliminary NO GROWTH AFTER 48 HOURS 10/10/20 10:46 Peripheral/Venous Blood Culture - Preliminary NO GROWTH AFTER 48 HOURS [place]/IV: Voiding Method Indwelling Catheter Active Medications - Current Medications Current Medications: Generic Name Dose Route Start Last Admin Trade Name Freq PRN Reason Stop Dose Admin Acetaminophen 650 mg 10/10/20 21:51 Acetaminophen 325 Mg Tab PO Q4H PRN Pain MILD(1-3)/Fever >100.5/SALVADOR Acetaminophen 650 mg 10/11/20 11:24 10/11/20 12:05 Acetaminophen 650 Mg Rect Supp OH 650 mg Q6H PRN Administration Fever >101 Acetazolamide 500 mg 10/12/20 11:00 10/12/20 11:19 Acetazolamide 500 Mg Vial IV 10/12/20 22:01 500 mg Q12HR PEPITO Administration Albuterol 2.5 mg 10/11/20 13:12 Albuterol 2.5 Mg/3 Ml Nebu IH Q6HRT PRN Shortness Of Breath Lipase/Protease/Amylase 1 each 10/10/20 22:18 Lipase 10,500/Protease 25,000/Amylase 43,750 (Units) Dr Santana FEEDTUBE PRN PRN For Clogged Feeding Tube Famotidine 20 mg 10/10/20 22:15 10/12/20 09:25 Famotidine 20 Mg/2 Ml Inj IV 20 mg DAILY PEPITO Administration Heparin Sodium (Porcine) 5,000 unit 10/11/20 22:00 10/12/20 09:25 Heparin 5,000 Unit/1 Ml Vial SUB-Q 5,000 unit Q12HR PEPITO Administration Hydralazine HCl 20 mg 10/12/20 12:00 10/12/20 12:33 Hydralazine 20 Mg/1 Ml Inj IV 20 mg Q6H PEPITO Administration Hydromorphone HCl 0.5 mg 10/10/20 21:51 10/12/20 12:53 Hydromorphone 1 Mg/1 Ml Inj IV 0.5 mg Q3H PRN Administration Pain , Severe (7-10) Hydrophilic Ointment 1 applic 10/10/20 10:34 Lip Therapy Vaseline TP Q2HR PRN Dry Lips Propofol 1,000 mg in 100 mls @ 4.23 mls/hr 10/10/20 12:00 10/12/20 14:15 Diprivan 10 Mg/Ml IV 10 mcg/kg/min TITR PEPITO 8.46 mls/hr Titration Protocol 5 MCG/KG/MIN Nitroglycerin/Dextrose 50 mg in 250 mls @ 3 mls/hr 10/10/20 13:00 10/10/20 13 :17 Tridil Drip 50mg/250ml IV 0 mcg/min TITR PEPITO 0 mls/hr Titration Protocol 10 MCG/MIN Norepinephrine 8 mg/ Sodium 250 mls @ 3.75 mls/hr 10/10/20 14:00 10/10/20 22:15 Chloride IV 0 mcg/min TITRATE PEPITO 0 mls/hr Titration Protocol 2 MCG/MIN Cefepime HCl 2 gm in 100 mls @ 200 mls/hr 10/12/20 22:00 Cefepime/Ns 2 Gm/100 Ml IV Q24H PEPITO Protocol Azithromycin 500 mg in 250 mls @ 250 mls/hr 10/12/20 13:00 10/12/20 14:17 Zithromax/Ns IV 10/15/20 13:59 Not Given Q24H PEPITO Metoclopramide HCl 10 mg 10/10/20 21:51 Metoclopramide 10 Mg/2 Ml Inj IV Q6H PRN Nausea And Vomiting Metoprolol Tartrate 5 mg 10/11/20 12:00 10/12/20 11:19 Metoprolol Tartrate 5 Mg/5 Ml Inj IV 5 mg Q6HR PEPITO Administration Multi-Ingred Cream/Lotion/Oil/Oint 1 applic 10/10/20 10:34 Mineral Oil/Petrolatum, White Ophth Oint 3.5 Gm OU Q4HR PRN Dry Eye(s) Ondansetron HCl 4 mg 10/10/20 21:51 Ondansetron 4 Mg/2 Ml Inj IV Q3H PRN Nausea And Vomiting Simple Syrup 15 ml 10/10/20 22:18 Simple Syrup 15 Ml FEEDTUBE PRN PRN Hypoglycemia Simple Syrup 30 ml 10/10/20 22:18 Simple Syrup 15 Ml FEEDTUBE PRN PRN Hypoglycemia Sodium Bicarbonate 325 mg 10/10/20 22:18 Sodium Bicarbonate 325 Mg Tab FEEDTUBE PRN PRN For Clogged Feeding Tube Sodium Chloride 10 ml 10/10/20 22:00 10/12/20 09:25 Sodium Chloride 0.9% 10 Ml Flush Syringe IV 10 ml BID PEPITO Administration Sodium Chloride 10 ml 10/10/20 21:51 Sodium Chloride 0.9% 10 Ml Flush Syringe IV PRN PRN LINE FLUSH Nutrition/Malnutrition Assess - Dietary Evaluation Nutrition/Malnutrition Findings: Nutrition Notes Start: 10/11/20 08:38 Freq: Status: Active Protocol: Document 10/12/20 10:31 OMARI (Rec: 10/12/20 10:33 OMARI [id number]) Nutrition Notes Need for Assessment 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 Pt assessed by RD yesterday; will continue to f/ u per protocol. Nutrition Intervention Follow-Up By: 10/13/20 Additional Comments F/U new TF/tolerance, vent status, Na labs, renal related labs <ANJEL CINTRON - Last Filed: 10/12/20 18:25> Assessment and Plan Assessment and plan: I saw and evaluated the patient. I agree with the findings and the plan of care as documented in the Nurse Practitioner's~note, with the following corrections and additions. Hospitalist Physical - Constitutional Vitals: Temp Pulse Resp BP Pulse Ox 99.0 F 89 20 206/111 97 10/12/20 12:00 10/12/20 18:04 10/12/20 15:20 10/12/20 18:04 10/12/20 15:20 HEART Score - HEART Score Troponin: Troponin T 0.125 ng/mL (0.00-0.029) H* D 10/12/20 04:00 Results - Labs CBC & Chem 7: 10/12/20 05:10 10/12/20 04:00 Labs: Laboratory Last Values WBC 14.3 K/mm3 (4.5-11.0) H 10/12/20 05:10 RBC 4.01 M/mm3 (3.65-5.03) 10/12/20 05:10 Hgb 11.6 gm/dl (11.8-15.2) L 10/12/20 05:10 Hct 35.2 % (35.5-45.6) L 10/12/20 05:10 MCV 88 fl (84-94) 10/12/20 05:10 MCH 29 pg (28-32) 10/12/20 05:10 MCHC 33 % (32-34) 10/12/20 05:10 RDW 15.0 % (13.2-15.2) 10/12/20 05:10 Plt Count 147 K/mm3 (140-440) 10/12/20 05:10 Lymph % (Auto) 3.9 % (13.4-35.0) L 10/11/20 02:00 [place] % (Auto) 3.0 % (0.0-7.3) 10/11/20 02:00 Eos % (Auto) 0.0 % (0.0-4.3) 10/11/20 02:00 Baso % (Auto) 0.1 % (0.0-1.8) 10/11/20 02:00 Lymph # (Auto) 0.7 K/mm3 (1.2-5.4) L 10/11/20 02:00 [place] # (Auto) 0.5 K/mm3 (0.0-0.8) 10/11/20 02:00 Eos # (Auto) 0.0 K/mm3 (0.0-0.4) 10/11/20 02:00 Baso # (Auto) 0.0 K/mm3 (0.0-0.1) 10/11/20 02:00 Add Manual Diff Complete 10/10/20 18:18 Total Counted 100 10/10/20 18:18 Seg Neutrophils % 93.0 % (40.0-70.0) H 10/11/20 02:00 Seg Neuts % (Manual) 60.0 % (40.0-70.0) 10/10/20 18:18 Band Neutrophils % 27.0 % 10/10/20 18:18 Lymphocytes % (Manual) 4.0 % (13.4-35.0) L 10/10/20 18:18 Monocytes % (Manual) 9.0 % (0.0-7.3) H 10/10/20 18:18 Eosinophils % (Manual) 4.0 % (0.0-4.3) 10/10/20 10:48 Metamyelocytes % 1.0 % 10/10/20 10:48 Nucleated RBC % Not Reportable 10/10/20 18:18 Seg Neutrophils # 16.1 K/mm3 (1.8-7.7) H 10/11/20 02:00 Seg Neutrophils # Man 13.8 K/mm3 (1.8-7.7) H 10/10/20 18:18 Band Neutrophils # 6.2 K/mm3 10/10/20 18:18 Lymphocytes # (Manual) 0.9 K/mm3 (1.2-5.4) L 10/10/20 18:18 Abs React Lymphs (Man) 0.0 K/mm3 10/10/20 18:18 Monocytes # (Manual) 2.1 K/mm3 (0.0-0.8) H 10/10/20 18:18 Eosinophils # (Manual) 0.0 K/mm3 (0.0-0.4) 10/10/20 18:18 Basophils # (Manual) 0.0 K/mm3 (0.0-0.1) 10/10/20 18:18 Metamyelocytes # 0.0 K/mm3 10/10/20 18:18 Myelocytes # 0.0 K/mm3 10/10/20 18:18 Promyelocytes # 0.0 K/mm3 10/10/20 18:18 Blast Cells # 0.0 K/mm3 10/10/20 18:18 WBC Morphology Not Reportable 10/10/20 18:18 Hypersegmented Neuts Not Reportable 10/10/20 18:18 Hyposegmented Neuts Not Reportable 10/10/20 18:18 Hypogranular Neuts Not Reportable 10/10/20 18:18 Smudge Cells Not Reportable 10/10/20 18:18 Toxic Granulation Not Reportable 10/10/20 18:18 Toxic Vacuolation Not Reportable 10/10/20 18:18 Dohle Bodies Not Reportable 10/10/20 18:18 Pelger-Huet Anomaly Not Reportable 10/10/20 18:18 Dionicio Rods Not Reportable 10/10/20 18:18 Platelet Estimate Consistent w auto 10/10/20 18:18 Clumped Platelets Not Reportable 10/10/20 18:18 Plt Clumps, EDTA Not Reportable 10/10/20 18:18 Large Platelets Rare 10/10/20 18:18 Giant Platelets Rare 10/10/20 18:18 Platelet Satelliting Not Reportable 10/10/20 18:18 Plt Morphology Comment Not Reportable 10/10/20 18:18 RBC Morphology Not Reportable 10/10/20 18:18 Dimorphic RBCs Not Reportable 10/10/20 18:18 Polychromasia Not Reportable 10/10/20 18:18 Hypochromasia Not Reportable 10/10/20 18:18 Poikilocytosis Not Reportable 10/10/20 18:18 Anisocytosis Not Reportable 10/10/20 18:18 Microcytosis Not Reportable 10/10/20 18:18 Macrocytosis Not Reportable 10/10/20 18:18 Spherocytes Not Reportable 10/10/20 18:18 Pappenheimer Bodies Not Reportable 10/10/20 18:18 Sickle Cells Not Reportable 10/10/20 18:18 Target Cells Not Reportable 10/10/20 18:18 Tear Drop Cells Not Reportable 10/10/20 18:18 Ovalocytes Not Reportable 10/10/20 18:18 Helmet Cells Not Reportable 10/10/20 18:18 [place] Bodies Not Reportable 10/10/20 18:18 [place] Rings Not Reportable 10/10/20 18:18 [place] Cells Not Reportable 10/10/20 18:18 Bite Cells Not Reportable 10/10/20 18:18 Crenated Cell Not Reportable 10/10/20 18:18 Elliptocytes Not Reportable 10/10/20 18:18 Acanthocytes (Spur) Not Reportable 10/10/20 18:18 Rouleaux Not Reportable 10/10/20 18:18 Hemoglobin C Crystals Not Reportable 10/10/20 18:18 Schistocytes Not Reportable 10/10/20 18:18 Malaria parasites Not Reportable 10/10/20 18:18 [place]icio Bodies Not Reportable 10/10/20 18:18 Hem Pathologist Commnt No 10/10/20 18:18 PT 13.8 Sec. (12.2-14.9) 10/10/20 18:18 INR 1.07 (0.87-1.13) 10/10/20 18:18 APTT 26.9 Sec. (24.2-36.6) 10/10/20 18:18 D-Dimer 679.5 ng/mlDDU (0-234) H 10/10/20 10:48 Heparin Anti-Xa Level 0.22 U.I./ml (0.3-0.7) L 10/11/20 08:35 ABG pH 7.545 (7.320-7.450) H 10/12/20 03:53 POC ABG pCO2 54.6 mmHg (32.0-48.0) H 10/12/20 03:53 ABG pCO2 75.3 mm Hg 10/10/20 15:50 POC ABG pO2 231.9 mmHg (83-108) H 10/12/20 03:53 ABG pO2 60.3 mm Hg (80.0-90.0) L 10/10/20 15:50 POC ABG HCO3 46.2 10/12/20 03:53 ABG HCO3 32.0 mmol/L (20.0-26.0) H 10/10/20 15:50 ABG O2 Saturation 99.5 (0-100) 10/12/20 03:53 ABG O2 Content 17.7 (0.0-44) 10/10/20 15:50 POC ABG Base Excess 20.7 10/12/20 03:53 ABG Base Excess 2.2 mmol/L (-2.0-3.0) 10/10/20 15:50 ABG Hemoglobin 12.2 (12.0-17.5) 10/12/20 03:53 ABG Oxyhemoglobin 98.5 (94-98) H 10/12/20 03:53 ABG Carboxyhemoglobin 1.4 % (0.0-5.0) 10/10/20 15:50 ABG Methemoglobin 0.3 (0.0-1.5) 10/12/20 03:53 ABG Sodium 150.5 mmol/L (136.0-145.0) H 10/12/20 03:53 ABG Potassium 3.2 mmol/L (3.40-4.50) L 10/12/20 03:53 ABG Chloride 96.0 mmol/L (98-107) L 10/12/20 03:53 ABG Glucose 148 mg/dL (65-95) H 10/12/20 03:53 VBG pH 6.870 (7.320-7.420) L* 10/10/20 10:48 Oxyhemoglobin 84.4 % (95.0-99.0) L 10/10/20 15:50 Carboxyhemoglobin 0.7 (0.5-1.5) 10/12/20 03:53 FiO2 100 % 10/10/20 15:50 FiO2 % 70 10/12/20 03:53 Sodium 155 mmol/L (137-145) H 10/12/20 04:00 Potassium 3.3 mmol/L (3.6-5.0) L 10/12/20 04:00 Chloride 97.9 mmol/L (98-107) L 10/12/20 04:00 Carbon Dioxide 47 mmol/L (22-30) H* D 10/12/20 04:00 Anion Gap 13 mmol/L 10/12/20 04:00 BUN 50 mg/dL (9-20) H 10/12/20 04:00 Creatinine 3.4 mg/dL (0.8-1.3) H 10/12/20 04:00 Estimated GFR 23 ml/min 10/12/20 04:00 BUN/Creatinine Ratio 15 % 10/12/20 04:00 Glucose 146 mg/dL (75-100) H 10/12/20 04:00 POC Glucose 119 mg/dL (70-105) H 10/12/20 16:01 Hemoglobin A1c 6.0 % (4-6) 10/11/20 02:00 Lactic Acid 4.00 mmol/L (0.7-2.0) H* 10/10/20 14:20 Calcium 8.0 mg/dL (8.4-10.2) L 10/12/20 04:00 Phosphorus 3.00 mg/dL (2.5-4.5) 10/11/20 15:45 Magnesium 1.70 mg/dL (1.7-2.3) 10/11/20 15:45 Ferritin 81.4 ng/mL (30.0-300.0) 10/10/20 10:48 Total Bilirubin 0.60 mg/dL (0.1-1.2) 10/11/20 02:00 AST 80 units/L (5-40) H 10/11/20 02:00 ALT 59 units/L (7-56) H 10/11/20 02:00 Alkaline Phosphatase 52 units/L (35-129) 10/11/20 02:00 Ammonia 214.0 umol/L (25-60) H 10/10/20 10:46 Lactate Dehydrogenase 386 units/L (91-180) H 10/10/20 10:48 Total Creatine Kinase 1192 units/L (55-170) H 10/10/20 18:18 CK-MB (CK-2) 21.7 ng/mL (0.0-4.0) H 10/10/20 18:18 CK-MB (CK-2) Rel Index 1.8 (0-4) 10/10/20 18:18 Troponin T 0.125 ng/mL (0.00-0.029) H* D 10/12/20 04:00 C-Reactive Protein 0.90 mg/dL (0.00-1.30) 10/10/20 10:48 NT-Pro-B Natriuret Pep 1187 pg/mL (0-900) H 10/10/20 10:46 Total Protein 6.8 g/dL (6.3-8.2) 10/11/20 02:00 Albumin 3.6 g/dL (3.9-5) L 10/11/20 02:00 Albumin/Globulin Ratio 1.1 % 10/11/20 02:00 Triglycerides 129 mg/dL (2-149) 10/10/20 18:18 Cholesterol 138 mg/dL (50-199) 10/10/20 18:18 LDL Cholesterol Direct 76 mg/dL (50-130) 10/10/20 18:18 HDL Cholesterol 49 mg/dL (40-59) 10/10/20 18:18 Cholesterol/HDL Ratio 2.81 % 10/10/20 18:18 Procalcitonin 0.09 ng/mL (<0.15) 10/10/20 10:48 TSH 6.260 mlU/mL (0.270-4.200) H 10/10/20 10:46 Arterial Blood Glucose 148 mg/dL (65-95) H 10/12/20 03:53 Arterial Blood Ionized Calcium 3.8 mg/dL (4.6-5.3) L 10/12/20 03:53 Urine Color Yellow (Yellow) 10/11/20 13:30 Urine Turbidity Slightly-cloudy (Clear) 10/11/20 13:30 Urine pH 9.0 (5.0-7.0) H 10/11/20 13:30 Ur Specific [place] 1.012 (1.003-1.030) 10/11/20 13:30 Urine Protein 30 mg/dl mg/dL (Negative) 10/11/20 13:30 Urine Glucose (UA) Neg mg/dL (Negative) 10/11/20 13:30 Urine Ketones Neg mg/dL (Negative) 10/11/20 13:30 Urine Blood Mod (Negative) 10/11/20 13:30 Urine Nitrite Neg (Negative) 10/11/20 13:30 Urine Bilirubin Neg (Negative) 10/11/20 13:30 Urine Urobilinogen < 2.0 mg/dL (<2.0) 10/11/20 13:30 Ur Leukocyte Esterase Tr (Negative) 10/11/20 13:30 Urine WBC (Auto) 18.0 /HPF (0.0-6.0) H 10/11/20 13:30 Urine RBC (Auto) 150.0 /HPF (0.0-6.0) 10/11/20 13:30 U Epithel Cells (Auto) < 1.0 /HPF (0-13.0) 10/11/20 13:30 Urine Mucus Few /HPF 10/11/20 13:30 Urine Eosinophils None seen (None Seen) 10/11/20 13:30 Urine Creatinine 80.5 mg/dL (0.1-20.0) H 10/11/20 13:30 Urine Sodium 110 mmol/L 10/11/20 13:30 Random Vancomycin 10.1 ug/mL (0-40.0) 10/12/20 05:00 Urine Opiates Screen Negative 10/10/20 10:50 Urine Methadone Screen Negative 10/10/20 10:50 Ur Barbiturates Screen Negative 10/10/20 10:50 Ur Phencyclidine Scrn Negative 10/10/20 10:50 Ur Amphetamines Screen Negative 10/10/20 10:50 U Benzodiazepines Scrn Negative 10/10/20 10:50 Urine Cocaine Screen Negative 10/10/20 10:50 U Marijuana (THC) Screen Positive 10/10/20 10:50 Drugs of Abuse Note Disclamer 10/10/20 10:50 Plasma/Serum Alcohol < 0.01 % (0-0.07) 10/10/20 10:48 Coronavirus (PCR) Negative (Negative) 10/11/20 Unknown Blood Type AB POSITIVE 10/10/20 10:48 Antibody Screen Negative 10/10/20 10:48 Microbiology: Microbiology 10/10/20 Unknown Tracheal Aspirate Sputum Culture - Final 10/11/20 Unknown Urine,[place] Urine Culture - Final NO GROWTH AFTER 48 HOURS 10/10/20 10:48 Peripheral/Venous Blood Culture - Preliminary NO GROWTH AFTER 48 HOURS 10/10/20 10:46 Peripheral/Venous Blood Culture - Preliminary NO GROWTH AFTER 48 HOURS [place]/IV: Voiding Method Indwelling Catheter Active Medications - Current Medications Current Medications: Generic Name Dose Route Start Last Admin Trade Name Freq PRN Reason Stop Dose Admin Acetaminophen 650 mg 10/10/20 21:51 Acetaminophen 325 Mg Tab PO Q4H PRN Pain MILD(1-3)/Fever >100.5/S[place]OR Acetaminophen 650 mg 10/11/20 11:24 10/11/20 12:05 Acetaminophen 650 Mg Rect Supp [place] 650 mg Q6H PRN Administration Fever >101 Acetazolamide 500 mg 10/12/20 11:00 10/12/20 11:19 Acetazolamide 500 Mg Vial IV 10/12/20 22:01 500 mg Q12HR PEPITO Administration Albuterol 2.5 mg 10/11/20 13:12 Albuterol 2.5 Mg/3 Ml Nebu IH Q6HRT PRN Shortness Of Breath Lipase/Protease/Amylase 1 each 10/10/20 22:18 Lipase 10,500/Protease 25,000/Amylase 43,750 (Units) Dr Cap FEEDTUBE PRN PRN For Clogged Feeding Tube Famotidine 20 mg 10/10/20 22:15 10/12/20 09:25 Famotidine 20 Mg/2 Ml Inj IV 20 mg DAILY PEPITO Administration Heparin Sodium (Porcine) 5,000 unit 10/11/20 22:00 10/12/20 09:25 Heparin 5,000 Unit/1 Ml Vial SUB-Q 5,000 unit Q12HR PEPITO Administration Hydralazine HCl 20 mg 10/12/20 12:00 10/12/20 18:03 Hydralazine 20 Mg/1 Ml Inj IV 20 mg Q6H PEPITO Administration Hydromorphone HCl 0.5 mg 10/10/20 21:51 10/12/20 12:53 Hydromorphone 1 Mg/1 Ml Inj IV 0.5 mg Q3H PRN Administration Pain , Severe (7-10) Hydrophilic Ointment 1 applic 10/10/20 10:34 Lip Therapy Vaseline TP Q2HR PRN Dry Lips Propofol 1,000 mg in 100 mls @ 4.23 mls/hr 10/10/20 12:00 10/12/20 18:11 Diprivan 10 Mg/Ml IV 15 mcg/kg/min TITR PEPITO 12.69 mls/hr Administration Protocol 5 MCG/KG/MIN Nitroglycerin/Dextrose 50 mg in 250 mls @ 3 mls/hr 10/10/20 13:00 10/10/20 13:17 Tridil Drip 50mg/250ml IV 0 mcg/min TITR PEPITO 0 mls/hr Titration Protocol 10 MCG/MIN Norepinephrine 8 mg/ Sodium 250 mls @ 3.75 mls/hr 10/10/20 14:00 10/10/20 22:15 Chloride IV 0 mcg/min TITRATE PEPITO 0 mls/hr Titration Protocol 2 MCG/MIN Cefepime HCl 2 gm in 100 mls @ 200 mls/hr 10/12/20 22:00 Cefepime/Ns 2 Gm/100 Ml IV Q24H PEPITO Protocol Azithromycin 500 mg in 250 mls @ 250 mls/hr 10/12/20 13:00 10/12/20 14:17 Zithromax/Ns IV 10/15/20 13:59 Not Given Q24H PEPITO Metoclopramide HCl 10 mg 10/10/20 21:51 Metoclopramide 10 Mg/2 Ml Inj IV Q6H PRN Nausea And Vomiting Metoprolol Tartrate 5 mg 10/11/20 12:00 10/12/20 18:04 Metoprolol Tartrate 5 Mg/5 Ml Inj IV 5 mg Q6HR PEPITO Administration Multi-Ingred Cream/Lotion/Oil/Oint 1 applic 10/10/20 10:34 Mineral Oil/Petrolatum, White Ophth Oint 3.5 Gm OU Q4HR PRN Dry Eye(s) Ondansetron HCl 4 mg 10/10/20 21:51 Ondansetron 4 Mg/2 Ml Inj IV Q3H PRN Nausea And Vomiting Pantoprazole Sodium 40 mg 10/12/20 22:00 Pantoprazole 40 Mg Inj IV BID PEPITO Simple Syrup 15 ml 10/10/20 22:18 Simple Syrup 15 Ml FEEDTUBE PRN PRN Hypoglycemia Simple Syrup 30 ml 10/10/20 22:18 Simple Syrup 15 Ml FEEDTUBE PRN PRN Hypoglycemia Sodium Bicarbonate 325 mg 10/10/20 22:18 Sodium Bicarbonate 325 Mg Tab FEEDTUBE PRN PRN For Clogged Feeding Tube Sodium Chloride 10 ml 10/10/20 22:00 10/12/20 09:25 Sodium Chloride 0.9% 10 Ml Flush Syringe IV 10 ml BID PEPITO Administration Sodium Chloride 10 ml 10/10/20 21:51 Sodium Chloride 0.9% 10 Ml Flush Syringe IV PRN PRN LINE FLUSH Nutrition/Malnutrition Assess - Dietary Evaluation Nutrition/Malnutrition Findings: Nutrition Notes Start: 10/11/20 08:38 Freq: Status: Active Protocol: Document 10/12/20 10:31 OMARI (Rec: 10/12/20 10:33 OMARI [id number]) Nutrition Notes Need for Assessment 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 Pt assessed by RD yesterday; will continue to f/ u per protocol. Nutrition Intervention Follow-Up By: 10/13/20 Additional Comments F/U new TF/tolerance, vent status, Na labs, renal related labs
--- NOTE | 2020-10-12 14:56 | Vascular Lab Report ---
DUPLEX DOPPLER LOWER EXTREMITY VEINS, BILATERAL INDICATION: swelling; cardiac arrest. TECHNIQUE: Duplex doppler imaging was performed through the veins of both lower extremities using ve nous compression and other maneuvers. COMPARISON: No relevant prior imaging study available. FINDINGS: Right Common femoral vein: Negative. Right Superficial femoral vein: Negative. Right Popliteal vein: Negative. Right Calf veins: Negative. Left Common femoral vein: Negative. Left Superficial femoral vein: Negative. Left Popliteal vein: Negative. Left Calf veins: Negative. Additional findings: Moderate-sized bilateral popliteal cysts are noted.. IMPRESSION: No sonographic evidence for DVT in either lower extremity. Bilateral popliteal cysts. Signer Name: Uziel Awan Jr, MD Signed: 10/12/2020 2:51 PM Workstation Name: [id number]
--- NOTE | 2020-10-12 18:26 | Gastroenterology Consultation ---
History of Present Illness - Reason for Consult Consult date: 10/12/20 GI bleed Requesting physician: ANJEL CINTRON - History of Present Illness This is a 55 yo male with pmh of asthma, CHF admitted on 10/10/2020 after presenting to the ED for sob after receiving COVID 19 vaccine. He was noted to have seizure-like activity and unresponsive at ED bay outside and had cardiac arrest. He had 2 additional cardiac arrest in the ED and ICU. Patient was intubated and on pressors, which has since weaned off. Noted to have bloody output from NG tube yesterday. Heparin drip was held. Today, noted to have more dark coffee ground output via NG tube, which has been on LIS, about 250 cc throughout the day. No BM per nursing. Medication list reviewed. Past History Past Medical History: other (See HPI.) Medications and Allergies Allergies Allergy/AdvReac Type Severity Reaction Status Date / Time No Known Allergies Allergy Unverified 07/06/13 15:19 Home Medications Medication Instructions Recorded Confirmed Last Taken Type Albuterol Sulfate [Ventolin HFA] 2 puff IH Q4H PRN #1 hfa.aer.ad 07/06/13 Unknown Rx Prednisone 40 mg PO QDAY #8 tablet 07/06/13 Unknown Rx Albuterol Mdi (or & Nicu Only) 2 puff IH Q4H PRN #1 inha 07/07/13 Unknown Rx [ProAir HFA Inhaler] Azithromycin [Zithromax Z-KYLE] 500 mg PO QDAY #5 tab 07/07/13 Unknown Rx HYDROcodone/APAP 5-325 [[place] 2 each PO Q6H PRN #30 tablet 07/07/13 Unknown Rx 5-325 mg TAB] predniSONE [Deltasone] 40 mg PO QDAY #10 tablet 07/07/13 Unknown Rx Active Meds: Active Medications Acetaminophen (Acetaminophen 325 Mg Tab) 650 mg PO Q4H PRN PRN Reason: Pain MILD(1-3)/Fever >100.5/[place] Acetaminophen (Acetaminophen 650 Mg Rect Supp) 650 mg [place] Q6H PRN PRN Reason: Fever >101 Last Admin: 10/11/20 12:05 Dose: 650 mg Documented by: Acetazolamide (Acetazolamide 500 Mg Vial) 500 mg IV Q12HR PEPITO Stop: 10/12/20 22:01 Last Admin: 10/12/20 11:19 Dose: 500 mg Documented by: Albuterol (Albuterol 2.5 Mg/3 Ml Nebu) 2.5 mg IH Q6HRT PRN PRN Reason: Shortness Of Breath Lipase/Protease/Amylase (Lipase 10,500/Protease 25,000/Amylase 43,750 (Units) Dr Cap) 1 each FEEDTUBE PRN PRN PRN Reason: For Clogged Feeding Tube Famotidine (Famotidine 20 Mg/2 Ml Inj) 20 mg IV DAILY PEPITO Last Admin: 10/12/20 09:25 Dose: 20 mg Documented by: Heparin Sodium (Porcine) (Heparin 5,000 Unit/1 Ml Vial) 5,000 unit SUB-Q Q12HR PEPITO Last Admin: 10/12/20 09:25 Dose: 5,000 unit Documented by: Hydralazine HCl (Hydralazine 20 Mg/1 Ml Inj) 20 mg IV Q6H PEPITO Last Admin: 10/12/20 18:03 Dose: 20 mg Documented by: Hydromorphone HCl (Hydromorphone 1 Mg/1 Ml Inj) 0.5 mg IV Q3H PRN PRN Reason: Pain , Severe (7-10) Last Admin: 10/12/20 12:53 Dose: 0.5 mg Documented by: Hydrophilic Ointment (Lip Therapy Vaseline) 1 applic TP Q2HR PRN PRN Reason: Dry Lips Propofol (Diprivan 10 Mg/Ml) 1,000 mg in 100 mls @ 4.23 mls/hr IV TITR PEPITO; Protocol Last Admin: 10/12/20 18:11 Dose: 15 mcg/kg/min, 12.69 mls/hr Documented by: Nitroglycerin/Dextrose (Tridil Drip 50mg/250ml) 50 mg in 250 mls @ 3 mls/hr IV TITR PEPITO; Protocol Last Titration: 10/10/20 13:17 Dose: 0 mcg/min, 0 mls/hr Documented by: Norepinephrine 8 mg/ Sodium (Chloride) 250 mls @ 3.75 mls/hr IV TITRATE PEPITO; Protocol Last Titration: 10/10/20 22:15 Dose: 0 mcg/min, 0 mls/hr Documented by: Cefepime HCl (Cefepime/Ns 2 Gm/100 Ml) 2 gm in 100 mls @ 200 mls/hr IV Q24H [facility]; Protocol Azithromycin (Zithromax/Ns) 500 mg in 250 mls @ 250 mls/hr IV Q24H [facility] Stop: 10/15/20 13:59 Last Admin: 10/12/20 14:17 Dose: Not Given Documented by: Metoclopramide HCl (Metoclopramide 10 Mg/2 Ml Inj) 10 mg IV Q6H PRN PRN Reason: Nausea And Vomiting Metoprolol Tartrate (Metoprolol Tartrate 5 Mg/5 Ml Inj) 5 mg IV Q6HR [facility] Last Admin: 10/12/20 18:04 Dose: 5 mg Documented by: Multi-Ingred Cream/Lotion/Oil/Oint (Mineral Oil/Petrolatum, White Ophth Oint 3.5 Gm) 1 applic OU Q4HR PRN PRN Reason: Dry Eye(s) Ondansetron HCl (Ondansetron 4 Mg/2 Ml Inj) 4 mg IV Q3H PRN PRN Reason: Nausea And Vomiting Simple Syrup (Simple Syrup 15 Ml) 15 ml FEEDTUBE PRN PRN PRN Reason: Hypoglycemia Simple Syrup (Simple Syrup 15 Ml) 30 ml FEEDTUBE PRN PRN PRN Reason: Hypoglycemia Sodium Bicarbonate (Sodium Bicarbonate 325 Mg Tab) 325 mg FEEDTUBE PRN PRN PRN Reason: For Clogged Feeding Tube Sodium Chloride (Sodium Chloride 0.9% 10 Ml Flush Syringe) 10 ml IV BID [facility] Last Admin: 10/12/20 09:25 Dose: 10 ml Documented by: Sodium Chloride (Sodium Chloride 0.9% 10 Ml Flush Syringe) 10 ml IV PRN PRN PRN Reason: LINE FLUSH Review of Systems - Review of Systems ROS unobtainable: due to endotracheal tube, due to mental status Exam - Constitutional Vital Signs: Temp Pulse Resp BP Pulse Ox 99.0 F 89 20 206/111 97 10/12/20 12:00 10/12/20 18:04 10/12/20 15:20 10/12/20 18:04 10/12/20 15:20 General appearance: other (intubated and sedated) - Respiratory Respiratory effort: normal, other (intubated and on the vent) - Cardiovascular Rhythm: regular Heart Sounds: Present: S1 & S2 - Gastrointestinal General gastrointestinal: Present: soft, non-tender, non-distended - Neurologic Neurological: other (sedated) - Labs CBC & Chem 7: 10/12/20 05:10 10/12/20 04:00 Lab Results: Laboratory Results - last 24 hr 10/11/20 10/12/20 10/12/20 23:14 03:53 04:00 WBC RBC Hgb Hct MCV MCH MCHC RDW Plt Count ABG pH 7.545 H POC ABG pCO2 54.6 H POC ABG pO2 231.9 H POC ABG HCO3 46.2 ABG O2 Saturation 99.5 POC ABG Base Excess 20.7 ABG Hemoglobin 12.2 ABG Oxyhemoglobin 98.5 H ABG Methemoglobin 0.3 ABG Sodium 150.5 H ABG Potassium 3.2 L ABG Chloride 96.0 L ABG Glucose 148 H Carboxyhemoglobin 0.7 FiO2 % 70 Sodium 155 H Potassium 3.3 L Chloride 97.9 L Carbon Dioxide 47 H* D Anion Gap 13 BUN 50 H Creatinine 3.4 H Estimated GFR 23 BUN/Creatinine Ratio 15 Glucose 146 H POC Glucose 135 H Calcium 8.0 L Troponin T 0.125 H* D Arterial Blood Glucose 148 H Arterial Blood Ionized Calcium 3.8 L Random Vancomycin 10/12/20 10/12/20 10/12/20 05:00 05:10 05:12 WBC 14.3 H RBC 4.01 Hgb 11.6 L Hct 35.2 L MCV 88 MCH 29 MCHC 33 RDW 15.0 Plt Count 147 ABG pH POC ABG pCO2 POC ABG pO2 POC ABG HCO3 ABG O2 Saturation POC ABG Base Excess ABG Hemoglobin ABG Oxyhemoglobin ABG Methemoglobin ABG Sodium ABG Potassium ABG Chloride ABG Glucose Carboxyhemoglobin FiO2 % Sodium Potassium Chloride Carbon Dioxide Anion Gap BUN Creatinine Estimated GFR BUN/Creatinine Ratio Glucose POC Glucose 137 H Calcium Troponin T Arterial Blood Glucose Arterial Blood Ionized Calcium Random Vancomycin 10.1 10/12/20 10/12/20 11:39 16:01 WBC RBC Hgb Hct MCV MCH MCHC RDW Plt Count ABG pH POC ABG pCO2 POC ABG pO2 POC ABG HCO3 ABG O2 Saturation POC ABG Base Excess ABG Hemoglobin ABG Oxyhemoglobin ABG Methemoglobin ABG Sodium ABG Potassium ABG Chloride ABG Glucose Carboxyhemoglobin FiO2 % Sodium Potassium Chloride Carbon Dioxide Anion Gap BUN Creatinine Estimated GFR BUN/Creatinine Ratio Glucose POC Glucose 138 H 119 H Calcium Troponin T Arterial Blood Glucose Arterial Blood Ionized Calcium Random Vancomycin Assessment and Plan - Patient Problems (1) GI bleed Current Visit: Yes Status: Suspected Plan to address problem: # Bloody output via NG tube - was on heparin drip after cardiac arrest on arrival to the ED. - heparin drip has been held - H/H slow down trend to 11. - NG tube output with more coffee ground material today with less amount. - possible upper GI bleed source with NG tube trauma, PUD, gastritis, esophagitis Rec - switch to IV protonix - monitor H/H - hold anticoagulation - monitor NG tube output - hold off endoscopy unless active bleeding and more clinically stable. Patient with recent multiple cardiac arrests. - will follow.
--- NOTE | 2020-10-12 20:16 | Ultrasound Report ---
Renal ultrasound INDICATION: Acute renal failure FINDINGS: Both kidneys measure 11 cm in length. No hydronephrosis. Urinary bladder is collapsed. Ther e is relative asymmetric flow within both kidneys especially along the right kidney. IMPRESSION: No hydronephrosis identified. Signer Name: Pawel Turner MD Signed: 10/12/2020 8:00 PM Workstation Name: [id number]
[2020-10-12] MEDS: PANTOPRAZOLE 40 MG INJ IV SCH (22:22)
[2020-10-12] MEDS: CEFEPIME/NS 2 GM/100 ML 2 GM/100 ML BAG IV SCH (22:26)
[2020-10-12] MEDS: DEXTROSE 5% IN WATER 1,000 ML IV SCH (22:30)
[2020-10-12] MEDS: POTASSIUM CHLORIDE 10 MEQ 10 MEQ/100 ML BAG IV SCH (23:23)
[2020-10-13] MEDS: POTASSIUM CHLORIDE 10 MEQ 10 MEQ/100 ML BAG IV SCH ×3 (00:23→02:33)
[2020-10-13 06:06] LABS: Hematocrit 36.9 % (35.5-45.6); Hemoglobin 11.7 gm/dl (11.8-15.2); Mean Corpuscular HGB Conc 32 % (32-34); Mean Corpuscular Volume 92 fl (84-94); Platelet Count 156 K/mm3 (140-440); Red Blood Count 4.01 M/mm3 (3.65-5.03); Red Cell Distribution Width 15.8 % (13.2-15.2)
[2020-10-13] MEDS: METOPROLOL TARTRATE 5 MG/5 ML INJ IV SCH ×4 (06:10→23:11)
[2020-10-13] MEDS: hydrALAZINE 20 MG/1 ML INJ IV SCH ×3 (06:10→17:20)
[2020-10-13 06:14] LABS: Calcium 8.5 mg/dL (8.4-10.2)
--- NOTE | 2020-10-13 06:16 | XRay Report ---
CHEST 1 VIEW INDICATION: follow up respiratory failure COMPARISON: One day prior. FINDINGS: Support devices: Unchanged. Heart: Stable. Lungs/Pleura: No acute pulmonary or pleural findings. IMPRESSION: 1. No acute disease. Signer Name: Babatunde Ortega MD Signed: 10/13/2020 6:12 AM Workstation Name: [id number]
[2020-10-13] MEDS: HEPARIN 5,000 UNIT/1 ML VIAL SUB-Q SCH ×2 (09:40→21:00)
[2020-10-13] MEDS: PANTOPRAZOLE 40 MG INJ IV SCH ×2 (09:40→21:02)
--- NOTE | 2020-10-13 11:50 | Progress Note ---
Assessment and Plan Cultures: SARS CoV2 PCR: negative. 10/10/2020 blood culture: No growth 10/10/2020 ET aspirate culture: no growth so far. 10/11/2020 urine culture: no growth A/P: 55-year-old male with hypertension, asthma, obesity came into the emergency room after receiving the Covid vaccine and passing out in the car at the emergency room bay. Patient was found to be unresponsive with no pulse, ACLS was initiated: #Sepsis, likely secondary to pneumonia. COVID negative. #Right-sided pneumonia: Possible aspiration during ACLS. Procalcitonin low. #Acute hypoxic respiratory failure: On mechanical ventilation. #MOE: Renally dose antibiotics. #Elevated LFTs: Likely from sepsis #Urine tox screen positive for THC Recs: -Continue cefepime, renally dosed with azithromycin for atypical coverage, plan to stop tomorrow -Follow-up cultures Jose Marquez MD, FACP [facility] ([facility] O: [phone] F: [phone] Subjective Date of service: 10/13/20 Principal diagnosis: Cardiac arrest; Septic Shock; Ac. hypoxemic & hypercapnic resp failure; MOE Interval history: No fever. Remains intubated, on the vent. Remains off pressors. Objective - Exam Narrative Exam: Physical Exam: Constitutional: sedated, intubated, on the vent Head, Ears, Nose: Normocephalic, atraumatic. External ears, nose normal Eyes: Conjunctivae/corneas clear. No icterus. No ptosis. Neck: intubated Oral: intubated Cardiovascular: S1, S2 + Respiratory: AE fair bilaterally and equal GI: Soft, bowel sounds + Musculoskeletal:no edema Skin: No rash or abscess Hem/Lymphatic: No palpable cervical or supraclavicular nodes. No lymphangitis Psych: no agitation Neurological: sedated, intubated, on the vent, exam limited - Constitutional Vitals: Vital Signs Temp Pulse Resp BP Pulse Ox 98.8 F 78 20 156/76 99 10/13/20 08:00 10/13/20 11:09 10/13/20 08:00 10/13/20 11:09 10/13/20 11:09 Temperature -Last 24 Hours Temperature 98.8 F Temperature 99.1 F Temperature 99.0 F Temperature 99.1 F Temperature 99.0 F - Labs CBC & Chem 7: 10/13/20 04:52 10/13/20 04:52 Labs: Abnormal lab results 10/12/20 10/12/20 10/12/20 Range/Units 11:39 16:01 19:49 WBC (4.5-11.0) K/mm3 Hgb (11.8-15.2) gm/dl RDW (13.2-15.2) % ABG pH (7.320-7.450) POC ABG pCO2 (32.0-48.0) mmHg ABG Sodium (136.0-145.0) mmol/L ABG Glucose (65-95) mg/dL Sodium 157 H (137-145) mmol/L Potassium 3.3 L (3.6-5.0) mmol/L Carbon Dioxide 47 H* (22-30) mmol/L BUN 52 H (9-20) mg/dL Creatinine 3.0 H (0.8-1.3) mg/dL Glucose 137 H (75-100) mg/dL POC Glucose 138 H 119 H (70-105) mg/dL Calcium 8.0 L (8.4-10.2) mg/dL Magnesium (1.7-2.3) mg/dL Triglycerides (2-149) mg/dL Arterial Blood Glucose (65-95) mg/dL Arterial Blood Ionized Calcium (4.6-5.3) mg/dL 10/12/20 10/13/20 10/13/20 Range/Units 23:37 02:28 04:52 WBC (4.5-11.0) K/mm3 Hgb (11.8-15.2) gm/dl RDW (13.2-15.2) % ABG pH 7.485 H (7.320-7.450) POC ABG pCO2 57.1 H (32.0-48.0) mmHg ABG Sodium 152.4 H (136.0-145.0) mmol/L ABG Glucose 129 H (65-95) mg/dL Sodium 155 H (137-145) mmol/L Potassium (3.6-5.0) mmol/L Carbon Dioxide 45 H* (22-30) mmol/L BUN 52 H (9-20) mg/dL Creatinine 2.7 H (0.8-1.3) mg/dL Glucose 121 H (75-100) mg/dL POC Glucose 131 H (70-105) mg/dL Calcium (8.4-10.2) mg/dL Magnesium 2.40 H (1.7-2.3) mg/dL Triglycerides 278 H (2-149) mg/dL Arterial Blood Glucose 129 H (65-95) mg/dL Arterial Blood Ionized Calcium 4.1 L (4.6-5.3) mg/dL 10/13/20 10/13/20 Range/Units 04:52 05:13 WBC 14.7 H (4.5-11.0) K/mm3 Hgb 11.7 L (11.8-15.2) gm/dl RDW 15.8 H (13.2-15.2) % ABG pH (7.320-7.450) POC ABG pCO2 (32.0-48.0) mmHg ABG Sodium (136.0-145.0) mmol/L ABG Glucose (65-95) mg/dL Sodium (137-145) mmol/L Potassium (3.6-5.0) mmol/L Carbon Dioxide (22-30) mmol/L BUN (9-20) mg/dL Creatinine (0.8-1.3) mg/dL Glucose (75-100) mg/dL POC Glucose 116 H (70-105) mg/dL Calcium (8.4-10.2) mg/dL Magnesium (1.7-2.3) mg/dL Triglycerides (2-149) mg/dL Arterial Blood Glucose (65-95) mg/dL Arterial Blood Ionized Calcium (4.6-5.3) mg/dL
[2020-10-13] MEDS: AZITHROMYCIN/NS 500 MG/250 ML 500 MG/250 ML BAG IV SCH (12:10)
--- NOTE | 2020-10-13 12:19 | Progress Note ---
<JOI TAMEZ - Last Filed: 10/13/20 14:07> Assessment and Plan Assessment and plan: -CCM, cardiology, nephrology, infectious disease consulted, appreciate recommendations -Antibiotic therapy -BB and hydralazine IV -Trend CBC and BMP -Mechanical ventilation, wean as tolerated, VAP bundle -Renal US pending -BLE Doppler US negative to DVT/SVT but shows bilateral popliteal cyst GI/DVT prophylaxis: SCDs to bilateral lower extremities while in bed, PPI, Heparin subq Dispo: ICU The high probability of a clinically significant, sudden or life threatening deterioration of the [multi] system(s) required my full and direct attention, intervention and personal management. The aggregate critical care time was [35] minutes. This time is in addition to time spent performing reported procedures but includes the following: [x] Data Review and interpretation [x] Patient assessment and monitoring of vital signs [x] Documentation [x] Medication orders and management History Interval history: This is a 55-year-old male with hypertension, asthma, obesity in the emergency by presents the emergency department on 10/10 after receiving a Covid vaccine being found unresponsive in his car in the emergency room by with no pulse and ACLS protocol was initiated from his car to emergency room #21 where it was continued. Patient was intubated after ROSC was achieved and a central line was placed and the patient was initiated on pressors. In the emergency room patient seems to have seizure-like activity and then collapsed and was unresponsive with no palpable pulse and ACLS was again initiated patient with achievement of ROSC. Patient again coded with ACLS protocol in the CT room. Upon arrival to the ICU patient again coded and ROSC was achieved and he was placed on epinephrine, Lasix, heparin and sodium bicarbonate drip and sedated with propofol. An NG tube was placed, A-line was placed. Patient was admitted to the hospitalist service with consult to CCM, nephrology, infectious disease and cardiology. 10/11: Patient COVID-19 PCR is pending and he remains on mechanical ventilation, examination on assist control 400/30/12/0.95. Patient is scheduled for an echocardiogram and we will obtain bilateral lower extremity Doppler ultrasound given elevated D-dimer. Patient was supposed to have a CTA chest when he coded yesterday. We will begin trickle feeding. This morning patient was on a heparin drip and was noted to have bloody drainage from his NG tube. Heparin drip was discontinued. 10/12: Patient remains on propofol and Lasix drip at the time my examination and he is on assist control 400/25/12/0.60. Patient is hypokalemic this morning which was repleted. Nephrlogy discontinued Lasix drip and Diamox. Patient is hypertensive and has been started on hydralazine and beta-shital IV. He has been titrated off his vasopressors since yesterday. Vancomycin discontinued. Patient is currently on cefepime and azithromycin. 10/13: Sedation vacation attempted today and patient was not responsive to verbal or painful stimuli, does not track or focus or follow commands. This morning the patient has some respiratory alkalosis on ABG, hypernatremia and metabolic alkalosis on BMP. His kidney functions has improved slightly. Patient still has leukocytosis and infectious disease was like to continue antibiotic therapy. GI evaluated the patient yesterday and started the patient on PPI does not plan to scope at this time. At the time my examination patient assist-control 400/20/12/0.40 and sedated on propofol at 20. Sepsis Right-sided pneumonia NSTEMI type II Acute heart failure GI bleed Leukocytosis Metabolic alkalosis Hypernatremia Acute hypoxic respiratory failure Acute kidney injury Transaminitis HTN Obesity Hospitalist Physical - Constitutional Vitals: Temp Pulse Resp BP Pulse Ox 98.8 F 78 20 156/76 99 10/13/20 08:00 10/13/20 11:09 10/13/20 08:00 10/13/20 11:09 10/13/20 11:09 General appearance: Present: no acute distress, other (intubated, sedated) - EENT Eyes: Present: PERRL ENT: poor dentition - Neck Neck: Absent: masses or JVD, cervical LAD - Respiratory Respiratory effort: normal Respiratory: bilateral: diminished - Cardiovascular Rhythm: regular Heart Sounds: Present: S1 & S2. Absent: systolic murmur, diastolic murmur - Extremities Extremities: no ischemia, pulses intact, pulses symmetrical, No edema, normal color - Abdominal General gastrointestinal: soft, non-tender, non-distended, hypoactive bowel sounds - Integumentary Integumentary: Present: warm, dry - Psychiatric Psychiatric: other (sedated) - Neurologic Neurologic: other (sedated) - Allied Health Allied health notes reviewed: nursing, RT, social work HEART Score - HEART Score EKG: Non-specific Age: 45-65 Troponin: Troponin T 0.125 ng/mL (0.00-0.029) H* D 10/12/20 04:00 Troponin: 1-3x normal limit - Critical Actions Critical Actions: 4-6 pts:12-16.6% risk of adverse cardiac event. Should be admitted Results - Labs CBC & Chem 7: 10/13/20 04:52 10/13/20 04:52 Labs: Laboratory Last Values WBC 14.7 K/mm3 (4.5-11.0) H 10/13/20 04:52 RBC 4.01 M/mm3 (3.65-5.03) 10/13/20 04:52 Hgb 11.7 gm/dl (11.8-15.2) L 10/13/20 04:52 Hct 36.9 % (35.5-45.6) 10/13/20 04:52 MCV 92 fl (84-94) 10/13/20 04:52 MCH 29 pg (28-32) 10/13/20 04:52 MCHC 32 % (32-34) 10/13/20 04:52 RDW 15.8 % (13.2-15.2) H 10/13/20 04:52 Plt Count 156 K/mm3 (140-440) 10/13/20 04:52 Lymph % (Auto) 3.9 % (13.4-35.0) L 10/11/20 02:00 [place] % (Auto) 3.0 % (0.0-7.3) 10/11/20 02:00 Eos % (Auto) 0.0 % (0.0-4.3) 10/11/20 02:00 Baso % (Auto) 0.1 % (0.0-1.8) 10/11/20 02:00 Lymph # (Auto) 0.7 K/mm3 (1.2-5.4) L 10/11/20 02:00 [place] # (Auto) 0.5 K/mm3 (0.0-0.8) 10/11/20 02:00 Eos # (Auto) 0.0 K/mm3 (0.0-0.4) 10/11/20 02:00 Baso # (Auto) 0.0 K/mm3 (0.0-0.1) 10/11/20 02:00 Add Manual Diff Complete 10/10/20 18:18 Total Counted 100 10/10/20 18:18 Seg Neutrophils % 93.0 % (40.0-70.0) H 10/11/20 02:00 Seg Neuts % (Manual) 60.0 % (40.0-70.0) 10/10/20 18:18 Band Neutrophils % 27.0 % 10/10/20 18:18 Lymphocytes % (Manual) 4.0 % (13.4-35.0) L 10/10/20 18:18 Monocytes % (Manual) 9.0 % (0.0-7.3) H 10/10/20 18:18 Eosinophils % (Manual) 4.0 % (0.0-4.3) 10/10/20 10:48 Metamyelocytes % 1.0 % 10/10/20 10:48 Nucleated RBC % Not Reportable 10/10/20 18:18 Seg Neutrophils # 16.1 K/mm3 (1.8-7.7) H 10/11/20 02:00 Seg Neutrophils # Man 13.8 K/mm3 (1.8-7.7) H 10/10/20 18:18 Band Neutrophils # 6.2 K/mm3 10/10/20 18:18 Lymphocytes # (Manual) 0.9 K/mm3 (1.2-5.4) L 10/10/20 18:18 Abs React Lymphs (Man) 0.0 K/mm3 10/10/20 18:18 Monocytes # (Manual) 2.1 K/mm3 (0.0-0.8) H 10/10/20 18:18 Eosinophils # (Manual) 0.0 K/mm3 (0.0-0.4) 10/10/20 18:18 Basophils # (Manual) 0.0 K/mm3 (0.0-0.1) 10/10/20 18:18 Metamyelocytes # 0.0 K/mm3 10/10/20 18:18 Myelocytes # 0.0 K/mm3 10/10/20 18:18 Promyelocytes # 0.0 K/mm3 10/10/20 18:18 Blast Cells # 0.0 K/mm3 10/10/20 18:18 WBC Morphology Not Reportable 10/10/20 18:18 Hypersegmented Neuts Not Reportable 10/10/20 18:18 Hyposegmented Neuts Not Reportable 10/10/20 18:18 Hypogranular Neuts Not Reportable 10/10/20 18:18 Smudge Cells Not Reportable 10/10/20 18:18 Toxic Granulation Not Reportable 10/10/20 18:18 Toxic Vacuolation Not Reportable 10/10/20 18:18 Dohle Bodies Not Reportable 10/10/20 18:18 Pelger-Huet Anomaly Not Reportable 10/10/20 18:18 Dionicio Rods Not Reportable 10/10/20 18:18 Platelet Estimate Consistent w auto 10/10/20 18:18 Clumped Platelets Not Reportable 10/10/20 18:18 Plt Clumps, EDTA Not Reportable 10/10/20 18:18 Large Platelets Rare 10/10/20 18:18 Giant Platelets Rare 10/10/20 18:18 Platelet Satelliting Not Reportable 10/10/20 18:18 Plt Morphology Comment Not Reportable 10/10/20 18:18 RBC Morphology Not Reportable 10/10/20 18:18 Dimorphic RBCs Not Reportable 10/10/20 18:18 Polychromasia Not Reportable 10/10/20 18:18 Hypochromasia Not Reportable 10/10/20 18:18 Poikilocytosis Not Reportable 10/10/20 18:18 Anisocytosis Not Reportable 10/10/20 18:18 Microcytosis Not Reportable 10/10/20 18:18 Macrocytosis Not Reportable 10/10/20 18:18 Spherocytes Not Reportable 10/10/20 18:18 Pappenheimer Bodies Not Reportable 10/10/20 18:18 Sickle Cells Not Reportable 10/10/20 18:18 Target Cells Not Reportable 10/10/20 18:18 Tear Drop Cells Not Reportable 10/10/20 18:18 Ovalocytes Not Reportable 10/10/20 18:18 Helmet Cells Not Reportable 10/10/20 18:18 [place] Bodies Not Reportable 10/10/20 18:18 [place] Rings Not Reportable 10/10/20 18:18 [place] Cells Not Reportable 10/10/20 18:18 Bite Cells Not Reportable 10/10/20 18:18 Crenated Cell Not Reportable 10/10/20 18:18 Elliptocytes Not Reportable 10/10/20 18:18 Acanthocytes (Spur) Not Reportable 10/10/20 18:18 Rouleaux Not Reportable 10/10/20 18:18 Hemoglobin C Crystals Not Reportable 10/10/20 18:18 Schistocytes Not Reportable 10/10/20 18:18 Malaria parasites Not Reportable 10/10/20 18:18 [place] Bodies Not Reportable 10/10/20 18:18 Hem Pathologist Commnt No 10/10/20 18:18 PT 13.8 Sec. (12.2-14.9) 10/10/20 18:18 INR 1.07 (0.87-1.13) 10/10/20 18:18 APTT 26.9 Sec. (24.2-36.6) 10/10/20 18:18 D-Dimer 679.5 ng/mlDDU (0-234) H 10/10/20 10:48 Heparin Anti-Xa Level 0.22 U.I./ml (0.3-0.7) L 10/11/20 08:35 ABG pH 7.485 (7.320-7.450) H 10/13/20 02:28 POC ABG pCO2 57.1 mmHg (32.0-48.0) H 10/13/20 02:28 ABG pCO2 75.3 mm Hg 10/10/20 15:50 POC ABG pO2 102.1 mmHg (83-108) 10/13/20 02:28 ABG pO2 60.3 mm Hg (80.0-90.0) L 10/10/20 15:50 POC ABG HCO3 42.1 10/13/20 02:28 ABG HCO3 32.0 mmol/L (20.0-26.0) H 10/10/20 15:50 ABG O2 Saturation 97.9 (0-100) 10/13/20 02:28 ABG O2 Content 17.7 (0.0-44) 10/10/20 15:50 POC ABG Base Excess 16.0 10/13/20 02:28 ABG Base Excess 2.2 mmol/L (-2.0-3.0) 10/10/20 15:50 ABG Hemoglobin 12.5 (12.0-17.5) 10/13/20 02:28 ABG Oxyhemoglobin 96.7 (94-98) 10/13/20 02:28 ABG Carboxyhemoglobin 1.4 % (0.0-5.0) 10/10/20 15:50 ABG Methemoglobin 0.3 (0.0-1.5) 10/13/20 02:28 ABG Sodium 152.4 mmol/L (136.0-145.0) H 10/13/20 02:28 ABG Potassium 3.4 mmol/L (3.40-4.50) 10/13/20 02:28 ABG Chloride 102.0 mmol/L (98-107) 10/13/20 02:28 ABG Glucose 129 mg/dL (65-95) H 10/13/20 02:28 VBG pH 6.870 (7.320-7.420) L* 10/10/20 10:48 Oxyhemoglobin 84.4 % (95.0-99.0) L 10/10/20 15:50 Carboxyhemoglobin 0.9 (0.5-1.5) 10/13/20 02:28 FiO2 100 % 10/10/20 15:50 FiO2 % 40.0 10/13/20 02:28 Sodium 155 mmol/L (137-145) H 10/13/20 04:52 Potassium 3.7 mmol/L (3.6-5.0) 10/13/20 04:52 Chloride 103.1 mmol/L (98-107) 10/13/20 04:52 Carbon Dioxide 45 mmol/L (22-30) H* 10/13/20 04:52 Anion Gap 14 mmol/L 10/13/20 04:52 BUN 52 mg/dL (9-20) H 10/13/20 04:52 Creatinine 2.7 mg/dL (0.8-1.3) H 10/13/20 04:52 Estimated GFR 30 ml/min 10/13/20 04:52 BUN/Creatinine Ratio 19 % 10/13/20 04:52 Glucose 121 mg/dL (75-100) H 10/13/20 04:52 POC Glucose 116 mg/dL (70-105) H 10/13/20 05:13 Hemoglobin A1c 6.0 % (4-6) 10/11/20 02:00 Lactic Acid 1.10 mmol/L (0.7-2.0) 10/13/20 04:52 Calcium 8.5 mg/dL (8.4-10.2) 10/13/20 04:52 Phosphorus 3.00 mg/dL (2.5-4.5) 10/11/20 15:45 Magnesium 2.40 mg/dL (1.7-2.3) H 10/13/20 04:52 Ferritin 81.4 ng/mL (30.0-300.0) 10/10/20 10:48 Total Bilirubin 0.60 mg/dL (0.1-1.2) 10/11/20 02:00 AST 80 units/L (5-40) H 10/11/20 02:00 ALT 59 units/L (7-56) H 10/11/20 02:00 Alkaline Phosphatase 52 units/L (35-129) 10/11/20 02:00 Ammonia 214.0 umol/L (25-60) H 10/10/20 10:46 Lactate Dehydrogenase 386 units/L (91-180) H 10/10/20 10:48 Total Creatine Kinase 1192 units/L (55-170) H 10/10/20 18:18 CK-MB (CK-2) 21.7 ng/mL (0.0-4.0) H 10/10/20 18:18 CK-MB (CK-2) Rel Index 1.8 (0-4) 10/10/20 18:18 Troponin T 0.125 ng/mL (0.00-0.029) H* D 10/12/20 04:00 C-Reactive Protein 0.90 mg/dL (0.00-1.30) 10/10/20 10:48 NT-Pro-B Natriuret Pep 1187 pg/mL (0-900) H 10/10/20 10:46 Total Protein 6.8 g/dL (6.3-8.2) 10/11/20 02:00 Albumin 3.6 g/dL (3.9-5) L 10/11/20 02:00 Albumin/Globulin Ratio 1.1 % 10/11/20 02:00 Triglycerides 278 mg/dL (2-149) H 10/13/20 04:52 Cholesterol 138 mg/dL (50-199) 10/10/20 18:18 LDL Cholesterol Direct 76 mg/dL (50-130) 10/10/20 18:18 HDL Cholesterol 49 mg/dL (40-59) 10/10/20 18:18 Cholesterol/HDL Ratio 2.81 % 10/10/20 18:18 Procalcitonin 0.09 ng/mL (<0.15) 10/10/20 10:48 TSH 6.260 mlU/mL (0.270-4.200) H 10/10/20 10:46 Arterial Blood Glucose 129 mg/dL (65-95) H 10/13/20 02:28 Arterial Blood Ionized Calcium 4.1 mg/dL (4.6-5.3) L 10/13/20 02:28 Urine Color Yellow (Yellow) 10/11/20 13:30 Urine Turbidity Slightly-cloudy (Clear) 10/11/20 13:30 Urine pH 9.0 (5.0-7.0) H 10/11/20 13:30 Ur Specific [place] 1.012 (1.003-1.030) 10/11/20 13:30 Urine Protein 30 mg/dl mg/dL (Negative) 10/11/20 13:30 Urine Glucose (UA) Neg mg/dL (Negative) 10/11/20 13:30 Urine Ketones Neg mg/dL (Negative) 10/11/20 13:30 Urine Blood Mod (Negative) 10/11/20 13:30 Urine Nitrite Neg (Negative) 10/11/20 13:30 Urine Bilirubin Neg (Negative) 10/11/20 13:30 Urine Urobilinogen < 2.0 mg/dL (<2.0) 10/11/20 13:30 Ur Leukocyte Esterase Tr (Negative) 10/11/20 13:30 Urine WBC (Auto) 18.0 /HPF (0.0-6.0) H 10/11/20 13:30 Urine RBC (Auto) 150.0 /HPF (0.0-6.0) 10/11/20 13:30 U Epithel Cells (Auto) < 1.0 /HPF (0-13.0) 10/11/20 13:30 Urine Mucus Few /HPF 10/11/20 13:30 Urine Eosinophils None seen (None Seen) 10/11/20 13:30 Urine Creatinine 80.5 mg/dL (0.1-20.0) H 10/11/20 13:30 Urine Sodium 110 mmol/L 10/11/20 13:30 Random Vancomycin 10.1 ug/mL (0-40.0) 10/12/20 05:00 Urine Opiates Screen Negative 10/10/20 10:50 Urine Methadone Screen Negative 10/10/20 10:50 Ur Barbiturates Screen Negative 10/10/20 10:50 Ur Phencyclidine Scrn Negative 10/10/20 10:50 Ur Amphetamines Screen Negative 10/10/20 10:50 U Benzodiazepines Scrn Negative 10/10/20 10:50 Urine Cocaine Screen Negative 10/10/20 10:50 U Marijuana (THC) Screen Positive 10/10/20 10:50 Drugs of Abuse Note Disclamer 10/10/20 10:50 Plasma/Serum Alcohol < 0.01 % (0-0.07) 10/10/20 10:48 Coronavirus (PCR) Negative (Negative) 10/11/20 Unknown Blood Type AB POSITIVE 10/10/20 10:48 Antibody Screen Negative 10/10/20 10:48 Microbiology: Microbiology 10/10/20 10:48 Peripheral/Venous Blood Culture - Preliminary NO GROWTH AFTER 72 HOURS 10/10/20 10:46 Peripheral/Venous Blood Culture - Preliminary NO GROWTH AFTER 72 HOURS 10/10/20 Unknown Tracheal Aspirate Sputum Culture - Final 10/11/20 Unknown Urine,[place] Urine Culture - Final NO GROWTH AFTER 48 HOURS [place]/IV: Voiding Method Indwelling Catheter Active Medications - Current Medications Current Medications: Generic Name Dose Route Start Last Admin Trade Name Freq PRN Reason Stop Dose Admin Acetaminophen 650 mg 10/10/20 21:51 Acetaminophen 325 Mg Tab PO Q4H PRN Pain MILD(1-3)/Fever >100.5/[place] Acetaminophen 650 mg 10/11/20 11:24 10/11/20 12:05 Acetaminophen [address] 650 mg Q6H PRN Administration Fever >101 Albuterol 2.5 mg 10/11/20 13:12 Albuterol 2.5 Mg/3 Ml Nebu IH Q6HRT PRN Shortness Of Breath Lipase/Protease/Amylase 1 each 10/10/20 22:18 Lipase 10,500/Protease 25,000/Amylase 43,750 (Units) Dr Cap FEEDTUBE PRN PRN For Clogged Feeding Tube Heparin Sodium (Porcine) 5,000 unit 10/11/20 22:00 10/13/20 09:40 Heparin 5,000 Unit/1 Ml Vial SUB-Q 5,000 unit Q12HR PEPITO Administration Hydralazine HCl 20 mg 10/12/20 12:00 10/13/20 06:10 Hydralazine 20 Mg/1 Ml Inj IV 20 mg Q6H PEPITO Administration Hydromorphone HCl 0.5 mg 10/10/20 21:51 10/12/20 12:53 Hydromorphone 1 Mg/1 Ml Inj IV 0.5 mg Q3H PRN Administration Pain , Severe (7-10) Hydrophilic Ointment 1 applic 10/10/20 10:34 Lip Therapy Vaseline TP Q2HR PRN Dry Lips Propofol 1,000 mg in 100 mls @ 4.23 mls/hr 10/10/20 12:00 10/13/20 10:44 Diprivan 10 Mg/Ml IV 20 mcg/kg/min TITR PEPITO 16.92 mls/hr Administration Protocol 5 MCG/KG/MIN Nitroglycerin/Dextrose 50 mg in 250 mls @ 3 mls/hr 10/10/20 13:00 10/10/20 13:17 Tridil Drip 50mg/250ml IV 0 mcg/min TITR PEPITO 0 mls/hr Titration Protocol 10 MCG/MIN Norepinephrine 8 mg/ Sodium 250 mls @ 3.75 mls/hr 10/10/20 14:00 10/10/20 22:15 Chloride IV 0 mcg/min TITRATE PEPITO 0 mls/hr Titration Protocol 2 MCG/MIN Cefepime HCl 2 gm in 100 mls @ 200 mls/hr 10/12/20 22:00 10/12/20 22:26 Cefepime/Ns 2 Gm/100 Ml IV 200 mls/hr Q24H PEPITO Administration Protocol Azithromycin 500 mg in 250 mls @ 250 mls/hr 10/12/20 13:00 10/12/20 14:17 Zithromax/Ns IV 10/15/20 13:59 Not Given Q24H PEPITO Dextrose 1,000 mls @ 50 mls/hr 10/12/20 21:00 10/12/20 22:30 D5w IV 50 mls/hr DIRECT PEPITO Administration Metoclopramide HCl 10 mg 10/10/20 21:51 Metoclopramide 10 Mg/2 Ml Inj IV Q6H PRN Nausea And Vomiting Metoprolol Tartrate 5 mg 10/11/20 12:00 10/13/20 06:10 Metoprolol Tartrate 5 Mg/5 Ml Inj IV 5 mg Q6HR PEPITO Administration Multi-Ingred Cream/Lotion/Oil/Oint 1 applic 10/10/20 10:34 Mineral Oil/Petrolatum, White Ophth Oint 3.5 Gm OU Q4HR PRN Dry Eye(s) Ondansetron HCl 4 mg 10/10/20 21:51 Ondansetron 4 Mg/2 Ml Inj IV Q3H PRN Nausea And Vomiting Pantoprazole Sodium 40 mg 10/12/20 22:00 10/13/20 09:40 Pantoprazole 40 Mg Inj IV 40 mg BID PEPITO Administration Simple Syrup 15 ml 10/10/20 22:18 Simple Syrup 15 Ml FEEDTUBE PRN PRN Hypoglycemia Simple Syrup 30 ml 10/10/20 22:18 Simple Syrup 15 Ml FEEDTUBE PRN PRN Hypoglycemia Sodium Bicarbonate 325 mg 10/10/20 22:18 Sodium Bicarbonate 325 Mg Tab FEEDTUBE PRN PRN For Clogged Feeding Tube Sodium Chloride 10 ml 10/10/20 22:00 10/13/20 09:41 Sodium Chloride 0.9% 10 Ml Flush Syringe IV 10 ml BID PEPITO Administration Sodium Chloride 10 ml 10/10/20 21:51 Sodium Chloride 0.9% 10 Ml Flush Syringe IV PRN PRN LINE FLUSH Nutrition/Malnutrition Assess - Dietary Evaluation Nutrition/Malnutrition Findings: Nutrition Notes Start: 10/11/20 08:38 Freq: Status: Active Protocol: Document 10/13/20 10:26 CW (Rec: 10/13/20 10:35 CW [id number]) Nutrition Notes Initial or Follow up Reassessment Current Diagnosis Acute Kidney Injury,Sepsis, Hypertension,Heart Failure, Respiratory Failure Other Pertinent Diagnosis GIB, pneu, Covid 19, ND, pulmonary edema Labs/Tests Na 155 BUN 52 Cr 2.7 Pertinent Medications propofol at 16.92 ml/hr KCl 10 mEq Lasix Height 6 ft Weight 125.8 kg [place] Body Weight (kg) 80.90 BMI 37.5 Weight change and time frame weight change likely related to lasix usage Subjective/Other Information F/U new TF tolerance, vent status, Na labs, renal related labs. Pt remains on mechanical vent. TF held and running at LIS d/t coffee ground emesis. Pt being monitored fir GI bleed. Percent of energy/protein needs met: 0%/0% Burn Absent Trauma Absent Skin Integrity/Comment Intact Current % PO Negligible Minimum of two criteria No physical signs of malnutrition #2 Nutrition Diagnosis Inadequate energy intake Etiology possible GI bleed As Evidenced by Signs and Symptoms TF on hold at this time. LIS running #1 Nutrition Diagnosis Inadequate oral intake Diagnosis Progress(for reassessment Continues documentation) Is patient on ventilator? Yes Is Patient Ambulatory and/or Out of Bed No REE-([place]-confined to bed) 2572.776 Kcal/Kg value to use for calculation 16 Approximate Energy Requirements Using 2012 kcal/Kg Calculation Used for Recommendations Kcal/kg Additional Notes protein needs up to 202.25g ( up to 2.5g/kgIBW) fluid needs: 1 ml/kcal or per MD Nutrition Intervention Change Diet Order: TF regimen Nutrition Support: Nepro at 45 ml/hr with a free water flush of 300 ml q4h. Kcal 1,944 Protein (gm) 87 Fluid (mL) 785 Goal #1 Restart TF regimen when medically feasible Anticipated Discharge Needs: unable to determine at this time Follow-Up By: 10/17/20 Additional Comments F/U for TF restart/tolerance, vent status, Na labs, renal related labs <ANJEL CINTRON - Last Filed: 10/14/20 16:14> Assessment and Plan Assessment and plan: I saw and evaluated the patient. I agree with the findings and the plan of care as documented in the Nurse Practitioner's~note, with the following corrections and additions. Hospitalist Physical - Constitutional Vitals: Temp Pulse Resp BP Pulse Ox 99.3 F 93 H 26 H 172/88 98 10/14/20 12:00 10/14/20 16:00 10/14/20 15:15 10/14/20 16:00 10/14/20 15:15 HEART Score - HEART Score Troponin: Troponin T 0.125 ng/mL (0.00-0.029) H* D 10/12/20 04:00 Results - Labs CBC & Chem 7: 10/14/20 04:46 10/14/20 04:46 Labs: Laboratory Last Values WBC 11.1 K/mm3 (4.5-11.0) H 10/14/20 04:46 RBC 4.12 M/mm3 (3.65-5.03) 10/14/20 04:46 Hgb 12.1 gm/dl (11.8-15.2) 10/14/20 04:46 Hct 37.5 % (35.5-45.6) 10/14/20 04:46 MCV 91 fl (84-94) 10/14/20 04:46 MCH 30 pg (28-32) 10/14/20 04:46 MCHC 32 % (32-34) 10/14/20 04:46 RDW 15.3 % (13.2-15.2) H 10/14/20 04:46 Plt Count 153 K/mm3 (140-440) 10/14/20 04:46 Lymph % (Auto) 3.9 % (13.4-35.0) L 10/11/20 02:00 [place] % (Auto) 3.0 % (0.0-7.3) 10/11/20 02:00 Eos % (Auto) 0.0 % (0.0-4.3) 10/11/20 02:00 Baso % (Auto) 0.1 % (0.0-1.8) 10/11/20 02:00 Lymph # (Auto) 0.7 K/mm3 (1.2-5.4) L 10/11/20 02:00 [place] # (Auto) 0.5 K/mm3 (0.0-0.8) 10/11/20 02:00 Eos # (Auto) 0.0 K/mm3 (0.0-0.4) 10/11/20 02:00 Baso # (Auto) 0.0 K/mm3 (0.0-0.1) 10/11/20 02:00 Add Manual Diff Complete 10/10/20 18:18 Total Counted 100 10/10/20 18:18 Seg Neutrophils % 93.0 % (40.0-70.0) H 10/11/20 02:00 Seg Neuts % (Manual) 60.0 % (40.0-70.0) 10/10/20 18:18 Band Neutrophils % 27.0 % 10/10/20 18:18 Lymphocytes % (Manual) 4.0 % (13.4-35.0) L 10/10/20 18:18 Monocytes % (Manual) 9.0 % (0.0-7.3) H 10/10/20 18:18 Eosinophils % (Manual) 4.0 % (0.0-4.3) 10/10/20 10:48 Metamyelocytes % 1.0 % 10/10/20 10:48 Nucleated RBC % Not Reportable 10/10/20 18:18 Seg Neutrophils # 16.1 K/mm3 (1.8-7.7) H 10/11/20 02:00 Seg Neutrophils # Man 13.8 K/mm3 (1.8-7.7) H 10/10/20 18:18 Band Neutrophils # 6.2 K/mm3 10/10/20 18:18 Lymphocytes # (Manual) 0.9 K/mm3 (1.2-5.4) L 10/10/20 18:18 Abs React Lymphs (Man) 0.0 K/mm3 10/10/20 18:18 Monocytes # (Manual) 2.1 K/mm3 (0.0-0.8) H 10/10/20 18:18 Eosinophils # (Manual) 0.0 K/mm3 (0.0-0.4) 10/10/20 18:18 Basophils # (Manual) 0.0 K/mm3 (0.0-0.1) 10/10/20 18:18 Metamyelocytes # 0.0 K/mm3 10/10/20 18:18 Myelocytes # 0.0 K/mm3 10/10/20 18:18 Promyelocytes # 0.0 K/mm3 10/10/20 18:18 Blast Cells # 0.0 K/mm3 10/10/20 18:18 WBC Morphology Not Reportable 10/10/20 18:18 Hypersegmented Neuts Not Reportable 10/10/20 18:18 Hyposegmented Neuts Not Reportable 10/10/20 18:18 Hypogranular Neuts Not Reportable 10/10/20 18:18 Smudge Cells Not Reportable 10/10/20 18:18 Toxic Granulation Not Reportable 10/10/20 18:18 Toxic Vacuolation Not Reportable 10/10/20 18:18 Dohle Bodies Not Reportable 10/10/20 18:18 Pelger-Huet Anomaly Not Reportable 10/10/20 18:18 Dionicio Rods Not Reportable 10/10/20 18:18 Platelet Estimate Consistent w auto 10/10/20 18:18 Clumped Platelets Not Reportable 10/10/20 18:18 Plt Clumps, EDTA Not Reportable 10/10/20 18:18 Large Platelets Rare 10/10/20 18:18 Giant Platelets Rare 10/10/20 18:18 Platelet Satelliting Not Reportable 10/10/20 18:18 Plt Morphology Comment Not Reportable 10/10/20 18:18 RBC Morphology Not Reportable 10/10/20 18:18 Dimorphic RBCs Not Reportable 10/10/20 18:18 Polychromasia Not Reportable 10/10/20 18:18 Hypochromasia Not Reportable 10/10/20 18:18 Poikilocytosis Not Reportable 10/10/20 18:18 Anisocytosis Not Reportable 10/10/20 18:18 Microcytosis Not Reportable 10/10/20 18:18 Macrocytosis Not Reportable 10/10/20 18:18 Spherocytes Not Reportable 10/10/20 18:18 Pappenheimer Bodies Not Reportable 10/10/20 18:18 Sickle Cells Not Reportable 10/10/20 18:18 Target Cells Not Reportable 10/10/20 18:18 Tear Drop Cells Not Reportable 10/10/20 18:18 Ovalocytes Not Reportable 10/10/20 18:18 Helmet Cells Not Reportable 10/10/20 18:18 [place] Bodies Not Reportable 10/10/20 18:18 [place] Rings Not Reportable 10/10/20 18:18 [place] Cells Not Reportable 10/10/20 18:18 Bite Cells Not Reportable 10/10/20 18:18 Crenated Cell Not Reportable 10/10/20 18:18 Elliptocytes Not Reportable 10/10/20 18:18 Acanthocytes (Spur) Not Reportable 10/10/20 18:18 Rouleaux Not Reportable 10/10/20 18:18 Hemoglobin C Crystals Not Reportable 10/10/20 18:18 Schistocytes Not Reportable 10/10/20 18:18 Malaria parasites Not Reportable 10/10/20 18:18 [place] Bodies Not Reportable 10/10/20 18:18 Hem Pathologist Commnt No 10/10/20 18:18 PT 13.8 Sec. (12.2-14.9) 10/10/20 18:18 INR 1.07 (0.87-1.13) 10/10/20 18:18 APTT 26.9 Sec. (24.2-36.6) 10/10/20 18:18 D-Dimer 679.5 ng/mlDDU (0-234) H 10/10/20 10:48 Heparin Anti-Xa Level 0.22 U.I./ml (0.3-0.7) L 10/11/20 08:35 ABG pH 7.448 (7.320-7.450) 10/14/20 03:45 POC ABG pCO2 59.6 mmHg (32.0-48.0) H 10/14/20 03:45 ABG pCO2 75.3 mm Hg 10/10/20 15:50 POC ABG pO2 93.3 mmHg (83-108) 10/14/20 03:45 ABG pO2 60.3 mm Hg (80.0-90.0) L 10/10/20 15:50 POC ABG HCO3 40.3 10/14/20 03:45 ABG HCO3 32.0 mmol/L (20.0-26.0) H 10/10/20 15:50 ABG O2 Saturation 97.4 (0-100) 10/14/20 03:45 ABG O2 Content 17.7 (0.0-44) 10/10/20 15:50 POC ABG Base Excess 13.8 10/14/20 03:45 ABG Base Excess 2.2 mmol/L (-2.0-3.0) 10/10/20 15:50 ABG Hemoglobin 12.7 (12.0-17.5) 10/14/20 03:45 ABG Oxyhemoglobin 95.8 (94-98) 10/14/20 03:45 ABG Carboxyhemoglobin 1.4 % (0.0-5.0) 10/10/20 15:50 ABG Methemoglobin 0 (0.0-1.5) 10/14/20 03:45 ABG Sodium 151.4 mmol/L (136.0-145.0) H 10/14/20 03:45 ABG Potassium 3.3 mmol/L (3.40-4.50) L 10/14/20 03:45 ABG Chloride 105.0 mmol/L (98-107) 10/14/20 03:45 ABG Glucose 138 mg/dL (65-95) H 10/14/20 03:45 VBG pH 6.870 (7.320-7.420) L* 10/10/20 10:48 Oxyhemoglobin 84.4 % (95.0-99.0) L 10/10/20 15:50 Carboxyhemoglobin 1.6 (0.5-1.5) H 10/14/20 03:45 FiO2 100 % 10/10/20 15:50 FiO2 % 40 10/14/20 03:45 Sodium 152 mmol/L (137-145) H 10/14/20 04:46 Potassium 3.5 mmol/L (3.6-5.0) L 10/14/20 04:46 Chloride 105.8 mmol/L (98-107) 10/14/20 04:46 Carbon Dioxide 38 mmol/L (22-30) H D 10/14/20 04:46 Anion Gap 12 mmol/L 10/14/20 04:46 BUN 46 mg/dL (9-20) H 10/14/20 04:46 Creatinine 2.3 mg/dL (0.8-1.3) H 10/14/20 04:46 Estimated GFR 36 ml/min 10/14/20 04:46 BUN/Creatinine Ratio 20 % 10/14/20 04:46 Glucose 127 mg/dL (75-100) H 10/14/20 04:46 POC Glucose 114 mg/dL (70-105) H 10/14/20 11:11 Hemoglobin A1c 6.0 % (4-6) 10/11/20 02:00 Lactic Acid 1.10 mmol/L (0.7-2.0) 10/13/20 04:52 Calcium 8.5 mg/dL (8.4-10.2) 10/14/20 04:46 Phosphorus 3.60 mg/dL (2.5-4.5) 10/14/20 04:46 Magnesium 2.40 mg/dL (1.7-2.3) H 10/13/20 04:52 Ferritin 81.4 ng/mL (30.0-300.0) 10/10/20 10:48 Total Bilirubin 0.60 mg/dL (0.1-1.2) 10/11/20 02:00 AST 80 units/L (5-40) H 10/11/20 02:00 ALT 59 units/L (7-56) H 10/11/20 02:00 Alkaline Phosphatase 52 units/L (35-129) 10/11/20 02:00 Ammonia 214.0 umol/L (25-60) H 10/10/20 10:46 Lactate Dehydrogenase 386 units/L (91-180) H 10/10/20 10:48 Total Creatine Kinase 1192 units/L (55-170) H 10/10/20 18:18 CK-MB (CK-2) 21.7 ng/mL (0.0-4.0) H 10/10/20 18:18 CK-MB (CK-2) Rel Index 1.8 (0-4) 10/10/20 18:18 Troponin T 0.125 ng/mL (0.00-0.029) H* D 10/12/20 04:00 C-Reactive Protein 0.90 mg/dL (0.00-1.30) 10/10/20 10:48 NT-Pro-B Natriuret Pep 1187 pg/mL (0-900) H 10/10/20 10:46 Total Protein 6.8 g/dL (6.3-8.2) 10/11/20 02:00 Albumin 3.6 g/dL (3.9-5) L 10/11/20 02:00 Albumin/Globulin Ratio 1.1 % 10/11/20 02:00 Triglycerides 278 mg/dL (2-149) H 10/13/20 04:52 Cholesterol 138 mg/dL (50-199) 10/10/20 18:18 LDL Cholesterol Direct 76 mg/dL (50-130) 10/10/20 18:18 HDL Cholesterol 49 mg/dL (40-59) 10/10/20 18:18 Cholesterol/HDL Ratio 2.81 % 10/10/20 18:18 Procalcitonin 0.09 ng/mL (<0.15) 10/10/20 10:48 TSH 6.260 mlU/mL (0.270-4.200) H 10/10/20 10:46 Arterial Blood Glucose 138 mg/dL (65-95) H 10/14/20 03:45 Arterial Blood Ionized Calcium 4.5 mg/dL (4.6-5.3) L 10/14/20 03:45 Urine Color Yellow (Yellow) 10/11/20 13:30 Urine Turbidity Slightly-cloudy (Clear) 10/11/20 13:30 Urine pH 9.0 (5.0-7.0) H 10/11/20 13:30 Ur Specific [place] 1.012 (1.003-1.030) 10/11/20 13:30 Urine Protein 30 mg/dl mg/dL (Negative) 10/11/20 13:30 Urine Glucose (UA) Neg mg/dL (Negative) 10/11/20 13:30 Urine Ketones Neg mg/dL (Negative) 10/11/20 13:30 Urine Blood Mod (Negative) 10/11/20 13:30 Urine Nitrite Neg (Negative) 10/11/20 13:30 Urine Bilirubin Neg (Negative) 10/11/20 13:30 Urine Urobilinogen < 2.0 mg/dL (<2.0) 10/11/20 13:30 Ur Leukocyte Esterase Tr (Negative) 10/11/20 13:30 Urine WBC (Auto) 18.0 /HPF (0.0-6.0) H 10/11/20 13:30 Urine RBC (Auto) 150.0 /HPF (0.0-6.0) 10/11/20 13:30 U Epithel Cells (Auto) < 1.0 /HPF (0-13.0) 10/11/20 13:30 Urine Mucus Few /HPF 10/11/20 13:30 Urine Eosinophils None seen (None Seen) 10/11/20 13:30 Urine Creatinine 80.5 mg/dL (0.1-20.0) H 10/11/20 13:30 Urine Sodium 110 mmol/L 10/11/20 13:30 Random Vancomycin 10.1 ug/mL (0-40.0) 10/12/20 05:00 Urine Opiates Screen Negative 10/10/20 10:50 Urine Methadone Screen Negative 10/10/20 10:50 Ur Barbiturates Screen Negative 10/10/20 10:50 Ur Phencyclidine Scrn Negative 10/10/20 10:50 Ur Amphetamines Screen Negative 10/10/20 10:50 U Benzodiazepines Scrn Negative 10/10/20 10:50 Urine Cocaine Screen Negative 10/10/20 10:50 U Marijuana (THC) Screen Positive 10/10/20 10:50 Drugs of Abuse Note Disclamer 10/10/20 10:50 Plasma/Serum Alcohol < 0.01 % (0-0.07) 10/10/20 10:48 Coronavirus (PCR) Negative (Negative) 10/11/20 Unknown Blood Type AB POSITIVE 10/10/20 10:48 Antibody Screen Negative 10/10/20 10:48 Microbiology: Microbiology 10/10/20 10:48 Peripheral/Venous Blood Culture - Preliminary NO GROWTH AFTER 4 DAYS 10/10/20 10:46 Peripheral/Venous Blood Culture - Preliminary NO GROWTH AFTER 4 DAYS Tuttle/IV: Voiding Method Indwelling Catheter Active Medications - Current Medications Current Medications: Generic Name Dose Route Start Last Admin Trade Name Freq PRN Reason Stop Dose Admin Acetaminophen 650 mg 10/10/20 21:51 Acetaminophen 325 Mg Tab PO Q4H PRN Pain MILD(1-3)/Fever >100.5/[place] Acetaminophen 650 mg 10/11/20 11:24 10/11/20 12:05 Acetaminophen [address] 650 mg Q6H PRN Administration Fever >101 Albuterol 2.5 mg 10/11/20 13:12 Albuterol 2.5 Mg/3 Ml Nebu IH Q6HRT PRN Shortness Of Breath Lipase/Protease/Amylase 1 each 10/10/20 22:18 Lipase 10,500/Protease 25,000/Amylase 43,750 (Units) Dr Cap FEEDTUBE PRN PRN For Clogged Feeding Tube Chlorothiazide Sodium 500 mg 10/14/20 10:00 Chlorothiazide 500 Mg Vial IV QDAY PEPITO Clonidine HCl 0.3 mg 10/14/20 15:00 10/14/20 16:00 Clonidine Tts 0.3 Mg/24 Hr Patch TD 0.3 mg Fr PEPITO Administration Heparin Sodium (Porcine) 5,000 unit 10/11/20 22:00 10/14/20 09:47 Heparin 5,000 Unit/1 Ml Vial SUB-Q 5,000 unit Q12HR PEPITO Administration Hydralazine HCl 20 mg 10/12/20 12:00 10/14/20 13:30 Hydralazine 20 Mg/1 Ml Inj IV 20 mg Q6H PEPITO Administration Hydromorphone HCl 0.5 mg 10/10/20 21:51 10/12/20 12:53 Hydromorphone 1 Mg/1 Ml Inj IV 0.5 mg Q3H PRN Administration Pain , Severe (7-10) Hydrophilic Ointment 1 applic 10/10/20 10:34 Lip Therapy Vaseline TP Q2HR PRN Dry Lips Propofol 1,000 mg in 100 mls @ 4.23 mls/hr 10/10/20 12:00 10/14/20 09:43 Diprivan 10 Mg/Ml IV 20 mcg/kg/min TITR PEPITO 16.92 mls/hr Administration Protocol 5 MCG/KG/MIN Nitroglycerin/Dextrose 50 mg in 250 mls @ 3 mls/hr 10/10/20 13:00 10/10/20 13:17 Tridil Drip 50mg/250ml IV 0 mcg/min TITR PEPITO 0 mls/hr Titration Protocol 10 MCG/MIN Norepinephrine 8 mg/ Sodium 250 mls @ 3.75 mls/hr 10/10/20 14:00 10/10/20 22:15 Chloride IV 0 mcg/min TITRATE PEPITO 0 mls/hr Titration Protocol 2 MCG/MIN Cefepime HCl 2 gm in 100 mls @ 200 mls/hr 10/12/20 22:00 10/13/20 21:02 Cefepime/Ns 2 Gm/100 Ml IV 200 mls/hr Q24H PEPITO Administration Protocol Azithromycin 500 mg in 250 mls @ 250 mls/hr 10/12/20 13:00 10/14/20 14:36 Zithromax/Ns IV 10/15/20 13:59 250 mls/hr Q24H PEPITO Administration Dextrose 1,000 mls @ 75 mls/hr 10/12/20 21:00 10/14/20 09:46 D5w IV 75 mls/hr DIRECT PEPITO Administration Levetiracetam 500 mg/ Dextrose 105 mls @ 400 mls/hr 10/13/20 18:00 10/14/20 09:48 IV 400 mls/hr Q12H PEPITO Administration Metoclopramide HCl 10 mg 10/10/20 21:51 Metoclopramide 10 Mg/2 Ml Inj IV Q6H PRN Nausea And Vomiting Metoprolol Tartrate 5 mg 10/11/20 12:00 10/14/20 05:50 Metoprolol Tartrate 5 Mg/5 Ml Inj IV 5 mg Q6HR PEPITO Administration Multi-Ingred Cream/Lotion/Oil/Oint 1 applic 10/10/20 10:34 Mineral Oil/Petrolatum, White Ophth Oint 3.5 Gm OU Q4HR PRN Dry Eye(s) Ondansetron HCl 4 mg 10/10/20 21:51 Ondansetron 4 Mg/2 Ml Inj IV Q3H PRN Nausea And Vomiting Pantoprazole Sodium 40 mg 10/12/20 22:00 10/14/20 09:50 Pantoprazole 40 Mg Inj IV 40 mg BID PEPITO Administration Simple Syrup 15 ml 10/10/20 22:18 Simple Syrup 15 Ml FEEDTUBE PRN PRN Hypoglycemia Simple Syrup 30 ml 10/10/20 22:18 Simple Syrup 15 Ml FEEDTUBE PRN PRN Hypoglycemia Sodium Bicarbonate 325 mg 10/10/20 22:18 Sodium Bicarbonate 325 Mg Tab FEEDTUBE PRN PRN For Clogged Feeding Tube Sodium Chloride 10 ml 10/10/20 22:00 10/13/20 21:02 Sodium Chloride 0.9% 10 Ml Flush Syringe IV 10 ml BID PEPITO Administration Sodium Chloride 10 ml 10/10/20 21:51 Sodium Chloride 0.9% 10 Ml Flush Syringe IV PRN PRN LINE FLUSH Nutrition/Malnutrition Assess - Dietary Evaluation Nutrition/Malnutrition Findings: Nutrition Notes Start: 10/11/20 08:38 Freq: Status: Active Protocol: Document 10/13/20 10:26 CW (Rec: 10/13/20 10:35 CW [id number]) Nutrition Notes Initial or Follow up Reassessment Current Diagnosis Acute Kidney Injury,Sepsis, Hypertension,Heart Failure, Respiratory Failure Other Pertinent Diagnosis GIB, pneu, Covid 19, ND, pulmonary edema Labs/Tests Na 155 BUN 52 Cr 2.7 Pertinent Medications propofol at 16.92 ml/hr KCl 10 mEq Lasix Height 6 ft Weight 125.8 kg [place] Body Weight (kg) 80.90 BMI 37.5 Weight change and time frame weight change likely related to lasix usage Subjective/Other Information F/U new TF tolerance, vent status, Na labs, renal related labs. Pt remains on mechanical vent. TF held and running at [facility] d/t coffee ground emesis. Pt being monitored for GI bleed. Percent of energy/protein needs met: 0%/0% Burn Absent Trauma Absent Skin Integrity/Comment Intact Current % PO Negligible Minimum of two criteria No physical signs of malnutrition #2 Nutrition Diagnosis Inadequate energy intake Etiology possible GI bleed As Evidenced by Signs and Symptoms TF on hold at this time. LIS running #1 Nutrition Diagnosis Inadequate oral intake Diagnosis Progress(for reassessment Continues documentation) Is patient on ventilator? Yes Is Patient Ambulatory and/or Out of Bed No REE-([place]-confined to bed) 2572.776 Kcal/Kg value to use for calculation 16 Approximate Energy Requirements Using 2013 kcal/Kg Calculation Used for Recommendations Kcal/kg Additional Notes protein needs up to 202.25g ( up to 2.5g/kgIBW) fluid needs: 1 ml/kcal or per MD Nutrition Intervention Change Diet Order: TF regimen Nutrition Support: Nepro at 45 ml/hr with a free water flush of 300 ml q4h. Kcal 1,944 Protein (gm) 87 Fluid (mL) 785 Goal #1 Restart TF regimen when medically feasible Anticipated Discharge Needs: unable to determine at this time Follow-Up By: 10/17/20 Additional Comments F/U for TF restart/tolerance, vent status, Na labs, renal related labs
--- NOTE | 2020-10-13 13:08 | Gastroenterology Progress Note ---
Assessment and Plan - Patient Problems (1) GI bleed Current Visit: Yes Status: Suspected Plan to address problem: # Bloody output via NG tube - was on heparin drip after cardiac arrest on arrival to the ED. - heparin drip has been held - H/H slow down trend to 11 and stable since 10/12/2020. - NG tube output with more green bilious output. No BM per nursing. - possible upper GI bleed source with NG tube trauma, PUD, gastritis, esophagitis - no signs of active GI bleeding. Rec - cont with IV protonix - monitor H/H - hold anticoagulation - monitor NG tube output - hold off endoscopy unless active bleeding and more clinically stable. Patient with recent multiple cardiac arrests. - will follow. - spoke with on the phone. No known prior h/o GI bleed. Unsure if prior EGD or colonoscopy in the past. H/o hernia surgery in the past, unsure of the details. Subjective Date of service: 10/13/20 Principal diagnosis: Cardiac arrest; Septic Shock; Ac. hypoxemic & hypercapnic resp failure; MOE Interval history: Patient remains sedated and intubated. Greenish bilious output from the NG tube. No BM per nursing. Objective - Constitutional Vitals: Temp Pulse Resp BP Pulse Ox 98.4 F 76 20 135/72 99 10/13/20 12:00 10/13/20 12:18 10/13/20 08:00 10/13/20 12:18 10/13/20 11:09 General appearance: other (sedated, intubated) - Respiratory Respiratory effort: other (intubated, on the vent) - Cardiovascular Rhythm: regular Heart Sounds: Present: S1 & S2 - Gastrointestinal General gastrointestinal: Present: soft, non-tender, non-distended - Labs CBC & Chem 7: 10/13/20 04:52 10/13/20 04:52 Labs: Laboratory Results - last 24 hr 10/12/20 10/12/20 10/12/20 11:39 16:01 19:49 WBC RBC Hgb Hct MCV MCH MCHC RDW Plt Count ABG pH POC ABG pCO2 POC ABG pO2 POC ABG HCO3 ABG O2 Saturation POC ABG Base Excess ABG Hemoglobin ABG Oxyhemoglobin ABG Methemoglobin ABG Sodium ABG Potassium ABG Chloride ABG Glucose Carboxyhemoglobin FiO2 % Sodium 157 H Potassium 3.3 L Chloride 100.8 Carbon Dioxide 47 H* Anion Gap 13 BUN 52 H Creatinine 3.0 H Estimated GFR 27 BUN/Creatinine Ratio 17 Glucose 137 H POC Glucose 138 H 119 H Lactic Acid Calcium 8.0 L Magnesium Triglycerides Arterial Blood Glucose Arterial Blood Ionized Calcium 10/12/20 10/13/20 10/13/20 23:37 02:28 04:52 WBC RBC Hgb Hct MCV MCH MCHC RDW Plt Count ABG pH 7.485 H POC ABG pCO2 57.1 H POC ABG pO2 102.1 POC ABG HCO3 42.1 ABG O2 Saturation 97.9 POC ABG Base Excess 16.0 ABG Hemoglobin 12.5 ABG Oxyhemoglobin 96.7 ABG Methemoglobin 0.3 ABG Sodium 152.4 H ABG Potassium 3.4 ABG Chloride 102.0 ABG Glucose 129 H Carboxyhemoglobin 0.9 FiO2 % 40.0 Sodium 155 H Potassium 3.7 Chloride 103.1 Carbon Dioxide 45 H* Anion Gap 14 BUN 52 H Creatinine 2.7 H Estimated GFR 30 BUN/Creatinine Ratio 19 Glucose 121 H POC Glucose 131 H Lactic Acid Calcium 8.5 Magnesium 2.40 H Triglycerides 278 H Arterial Blood Glucose 129 H Arterial Blood Ionized Calcium 4.1 L 10/13/20 10/13/20 10/13/20 04:52 04:52 05:13 WBC 14.7 H RBC 4.01 Hgb 11.7 L Hct 36.9 MCV 92 MCH 29 MCHC 32 RDW 15.8 H Plt Count 156 ABG pH POC ABG pCO2 POC ABG pO2 POC ABG HCO3 ABG O2 Saturation POC ABG Base Excess ABG Hemoglobin ABG Oxyhemoglobin ABG Methemoglobin ABG Sodium ABG Potassium ABG Chloride ABG Glucose Carboxyhemoglobin FiO2 % Sodium Potassium Chloride Carbon Dioxide Anion Gap BUN Creatinine Estimated GFR BUN/Creatinine Ratio Glucose POC Glucose 116 H Lactic Acid 1.10 Calcium Magnesium Triglycerides Arterial Blood Glucose Arterial Blood Ionized Calcium
--- NOTE | 2020-10-13 14:11 | Progress Note ---
Assessment and Plan 1. Acute kidney injury: Vasomotor MOE in the setting of Cardiac arrest and shock. Renal US negative for hydro. Monitor renal function. Creatinine level improving. Renal prognosis is guarded. Avoid nephrotoxic agents. Meds dosage based on GFR. 2. FEN: Volume overload, improving, monitor. Hypokalemia, replete K as needed, monitor. Hypernatremia, continue IV D5W, monitor. Metabolic alkalosis, diamox as needed, monitor. Monitor lytes and volume status. 3. Acute hypoxic respiratory failure, POA: 2/2 PNA and CHF. COVID test negative. Intubated on vent. 4. Sepsis, POA: 2/2 PNA. Abx. 5. NSTEMI type II: Post cardiac arrest EKG showed no acute ischemic changes. Was on Heparin gtt. Followed by Cards. 6. Acute CHF: Echo showed Normal EF and mild DD. 7. S/p Cardiac arrest. 8. GI bleed. 9. Elevated Transaminases: Trend. 10. HTN: Monitor. Subjective: Patient was seen and examined at the bedside. RN at the bedside. Objective: General appearance: well-developed, appears stated age, intubated, on vent HEENT: ATNC, MONTSE Neck: trachea midline Respiratory: ctab Heart: regular, S1S2, no murmur Gastrointestinal: soft, normoactive bowel sounds, not tender Integumentary: no rash, warm and dry Ext: no edema Neurologic: not responding Musculoskeletal: no obvious deformity : Tuttle catheter Subjective Date of service: 10/13/20 Principal diagnosis: Cardiac arrest; Septic Shock; Ac. hypoxemic & hypercapnic resp failure; MOE Objective - Vital Signs Vital signs: Vital Signs - 12hr 10/13/20 10/13/20 10/13/20 02:20 02:30 02:40 Temperature Pulse Rate 79 77 77 Pulse Rate [ From Monitor] Respiratory 30 H 21 20 Rate Blood Pressure 151/73 151/73 138/76 O2 Sat by Pulse 100 100 100 Oximetry 10/13/20 10/13/20 10/13/20 02:50 03:00 03:10 Temperature Pulse Rate 79 88 85 Pulse Rate [ From Monitor] Respiratory 31 H 22 24 Rate Blood Pressure 131/74 146/77 146/77 O2 Sat by Pulse 100 100 100 Oximetry 10/13/20 10/13/20 10/13/20 03:20 03:28 03:30 Temperature 99.1 F Pulse Rate 84 83 Pulse Rate [ From Monitor] Respiratory 28 H 34 H Rate Blood Pressure 150/76 150/76 O2 Sat by Pulse 100 100 Oximetry 10/13/20 10/13/20 10/13/20 03:40 03:50 04:00 Temperature Pulse Rate 87 82 80 Pulse Rate [ 80 From Monitor] Respiratory 28 H 43 H 32 H Rate Blood Pressure 158/82 145/80 153/83 O2 Sat by Pulse 100 100 100 Oximetry 10/13/20 10/13/20 10/13/20 04:10 04:20 04:30 Temperature Pulse Rate 80 88 100 H Pulse Rate [ From Monitor] Respiratory 29 H 31 H 36 H Rate Blood Pressure 163/82 142/79 153/83 O2 Sat by Pulse 100 100 100 Oximetry 10/13/20 10/13/20 10/13/20 04:40 04:50 05:00 Temperature Pulse Rate 86 80 80 Pulse Rate [ From Monitor] Respiratory 38 H 33 H 42 H Rate Blood Pressure 153/83 161/85 O2 Sat by Pulse 100 98 97 Oximetry 10/13/20 10/13/20 10/13/20 05:10 05:20 05:30 Temperature Pulse Rate 78 80 89 Pulse Rate [ From Monitor] Respiratory 36 H 38 H 31 H Rate Blood Pressure 154/91 162/89 162/89 O2 Sat by Pulse 96 96 95 Oximetry 10/13/20 10/13/20 10/13/20 05:40 05:50 06:00 Temperature Pulse Rate 77 83 74 Pulse Rate [ From Monitor] Respiratory 36 H 37 H 33 H Rate Blood Pressure 154/91 157/88 157/88 O2 Sat by Pulse 97 98 97 Oximetry 10/13/20 10/13/20 10/13/20 06:10 06:30 06:45 Temperature Pulse Rate 70 82 79 Pulse Rate [ From Monitor] Respiratory 28 H 31 H 15 Rate Blood Pressure 158/74 146/77 141/69 O2 Sat by Pulse 98 98 99 Oximetry 10/13/20 10/13/20 10/13/20 07:00 07:15 07:30 Temperature Pulse Rate 83 82 83 Pulse Rate [ From Monitor] Respiratory 32 H 19 21 Rate Blood Pressure 141/69 137/77 137/77 O2 Sat by Pulse 99 98 98 Oximetry 10/13/20 10/13/20 10/13/20 07:36 07:45 08:00 Temperature 98.8 F Pulse Rate 84 80 84 Pulse Rate [ 85 From Monitor] Respiratory 20 20 Rate Blood Pressure 143/73 152/76 157/82 O2 Sat by Pulse 98 99 98 Oximetry 10/13/20 10/13/20 10/13/20 08:16 08:30 08:46 Temperature Pulse Rate 80 85 83 Pulse Rate [ From Monitor] Respiratory 20 20 20 Rate Blood Pressure 168/82 168/82 163/86 O2 Sat by Pulse 98 99 98 Oximetry 10/13/20 10/13/20 10/13/20 09:00 09:15 09:30 Temperature Pulse Rate 79 80 78 Pulse Rate [ From Monitor] Respiratory 20 20 20 Rate Blood Pressure 163/86 143/74 143/74 O2 Sat by Pulse 98 98 98 Oximetry 10/13/20 10/13/20 10/13/20 09:45 10:00 10:15 Temperature Pulse Rate 80 83 80 Pulse Rate [ From Monitor] Respiratory 20 19 20 Rate Blood Pressure 131/74 131/74 153/78 O2 Sat by Pulse 99 99 99 Oximetry 10/13/20 10/13/20 10/13/20 10:30 10:46 11:00 Temperature Pulse Rate 78 77 80 Pulse Rate [ From Monitor] Respiratory 19 20 20 Rate Blood Pressure 153/78 154/87 154/87 O2 Sat by Pulse 99 99 98 Oximetry 10/13/20 10/13/20 10/13/20 11:09 11:16 11:30 Temperature Pulse Rate 78 81 96 H Pulse Rate [ From Monitor] Respiratory 21 19 Rate Blood Pressure 156/76 151/79 151/79 O2 Sat by Pulse 99 96 96 Oximetry 10/13/20 10/13/20 10/13/20 11:46 12:00 12:09 Temperature 98.4 F Pulse Rate 86 86 82 Pulse Rate [ From Monitor] Respiratory 20 19 Rate Blood Pressure 166/76 166/76 166/71 O2 Sat by Pulse 94 94 Oximetry 10/13/20 10/13/20 10/13/20 12:16 12:18 12:30 Temperature Pulse Rate 75 76 81 Pulse Rate [ From Monitor] Respiratory 20 20 Rate Blood Pressure 135/72 135/72 133/76 O2 Sat by Pulse 94 94 Oximetry 04/01/21 04/01/21 04/01/21 12:45 13:00 13:15 Temperature Pulse Rate 77 75 87 Pulse Rate [ From Monitor] Respiratory 20 20 20 Rate Blood Pressure 141/76 138/79 133/70 O2 Sat by Pulse 93 95 94 Oximetry 10/13/20 10/13/20 10/13/20 13:30 13:45 14:00 Temperature Pulse Rate 79 78 75 Pulse Rate [ From Monitor] Respiratory 20 20 20 Rate Blood Pressure 133/70 147/79 141/79 O2 Sat by Pulse 95 97 97 Oximetry - Lab 10/13/20 04:52 10/13/20 04:52 Most recent lab results ABG pH 7.485 (7.320-7.450) H 10/13/20 02:28 ABG pCO2 75.3 mm Hg 10/10/20 15:50 ABG pO2 60.3 mm Hg (80.0-90.0) L 10/10/20 15:50 ABG HCO3 32.0 mmol/L (20.0-26.0) H 10/10/20 15:50 ABG O2 Saturation 97.9 (0-100) 10/13/20 02:28 Calcium 8.5 mg/dL (8.4-10.2) 10/13/20 04:52 Phosphorus 3.00 mg/dL (2.5-4.5) 10/11/20 15:45 Magnesium 2.40 mg/dL (1.7-2.3) H 10/13/20 04:52 Urine Creatinine 80.5 mg/dL (0.1-20.0) H 10/11/20 13:30 Urine Sodium 110 mmol/L 10/11/20 13:30 Medications & Allergies - Medications Allergies/Adverse Reactions: Allergies No Known Allergies Allergy (Unverified 07/06/13 15:19) Home Medications: Home Medications Medication Instructions Recorded Confirmed Last Taken Type Albuterol Sulfate [Ventolin HFA] 2 puff IH Q4H PRN #1 hfa.aer.ad 07/06/13 Unknown Rx Prednisone 40 mg PO QDAY #8 tablet 07/06/13 Unknown Rx Albuterol Mdi (or & Nicu Only) 2 puff IH Q4H PRN #1 inha 07/07/13 Unknown Rx [ProAir HFA Inhaler] Azithromycin [Zithromax Z-KYEL] 500 mg PO QDAY #5 tab 07/07/13 Unknown Rx HYDROcodone/APAP 5-325 [[place] 2 each PO Q6H PRN #30 tablet 07/07/13 Unknown Rx 5-325 mg TAB] predniSONE [Deltasone] 40 mg PO QDAY #10 tablet 07/07/13 Unknown Rx Active Medications: Generic Name Dose Route Start Last Admin Trade Name Freq PRN Reason Stop Dose Admin Acetaminophen 650 mg 10/10/20 21:51 Acetaminophen 325 Mg Tab PO Q4H PRN Pain MILD(1-3)/Fever >100.5/[place] Acetaminophen 650 mg 10/11/20 11:24 10/11/20 12:05 Acetaminophen 650 Mg Rect Supp [place] 650 mg Q6H PRN Administration Fever >101 Albuterol 2.5 mg 10/11/20 13:12 Albuterol 2.5 Mg/3 Ml Nebu IH Q6HRT PRN Shortness Of Breath Lipase/Protease/Amylase 1 each 10/10/20 22:18 Lipase 10,500/Protease 25,000/Amylase 43,750 (Units) Dr Santana FEEDTUBE PRN PRN For Clogged Feeding Tube Heparin Sodium (Porcine) 5,000 unit 10/11/20 22:00 10/13/20 09:40 Heparin 5,000 Unit/1 Ml Vial SUB-Q 5,000 unit Q12HR PEPITO Administration Hydralazine HCl 20 mg 10/12/20 12:00 10/13/20 12:18 Hydralazine 20 Mg/1 Ml Inj IV 20 mg Q6H PEPITO Administration Hydromorphone HCl 0.5 mg 10/10/20 21:51 10/12/20 12:53 Hydromorphone 1 Mg/1 Ml Inj IV 0.5 mg Q3H PRN Administration Pain , Severe (7-10) Hydrophilic Ointment 1 applic 10/10/20 10:34 Lip Therapy Vaseline TP Q2HR PRN Dry Lips Propofol 1,000 mg in 100 mls @ 4.23 mls/hr 10/10/20 12:00 10/13/20 10:44 Diprivan 10 Mg/Ml IV 20 mcg/kg/min TITR PEPITO 16.92 mls/hr Administration Protocol 5 MCG/KG/MIN Nitroglycerin/Dextrose 50 mg in 250 mls @ 3 mls/hr 10/10/20 13:00 10/10/20 13:17 Tridil Drip 50mg/250ml IV 0 mcg/min TITR PEPITO 0 mls/hr Titration Protocol 10 MCG/MIN Norepinephrine 8 mg/ Sodium 250 mls @ 3.75 mls/hr 10/10/20 14:00 10/10/20 22:15 Chloride IV 0 mcg/min TITRATE PEPITO 0 mls/hr Titration Protocol 2 MCG/MIN Cefepime HCl 2 gm in 100 mls @ 200 mls/hr 10/12/20 22:00 10/12/20 22:26 Cefepime/Ns 2 Gm/100 Ml IV 200 mls/hr Q24H PEPITO Administration Protocol Azithromycin 500 mg in 250 mls @ 250 mls/hr 10/12/20 13:00 10/13/20 12:10 Zithromax/Ns IV 10/15/20 13:59 250 mls/hr Q24H PEPITO Administration Dextrose 1,000 mls @ 50 mls/hr 10/12/20 21:00 10/12/20 22:30 D5w IV 50 mls/hr DIRECT PEPITO Administration Metoclopramide HCl 10 mg 10/10/20 21:51 Metoclopramide 10 Mg/2 Ml Inj IV Q6H PRN Nausea And Vomiting Metoprolol Tartrate 5 mg 10/11/20 12:00 10/13/20 12:09 Metoprolol Tartrate 5 Mg/5 Ml Inj IV 5 mg Q6HR PEPITO Administration Multi-Ingred Cream/Lotion/Oil/Oint 1 applic 10/10/20 10:34 Mineral Oil/Petrolatum, White Ophth Oint 3.5 Gm OU Q4HR PRN Dry Eye(s) Ondansetron HCl 4 mg 10/10/20 21:51 Ondansetron 4 Mg/2 Ml Inj IV Q3H PRN Nausea And Vomiting Pantoprazole Sodium 40 mg 10/12/20 22:00 10/13/20 09:40 Pantoprazole 40 Mg Inj IV 40 mg BID PEPITO Administration Simple Syrup 15 ml 10/10/20 22:18 Simple Syrup 15 Ml FEEDTUBE PRN PRN Hypoglycemia Simple Syrup 30 ml 10/10/20 22:18 Simple Syrup 15 Ml FEEDTUBE PRN PRN Hypoglycemia Sodium Bicarbonate 325 mg 10/10/20 22:18 Sodium Bicarbonate 325 Mg Tab FEEDTUBE PRN PRN For Clogged Feeding Tube Sodium Chloride 10 ml 10/10/20 22:00 10/13/20 09:41 Sodium Chloride 0.9% 10 Ml Flush Syringe IV 10 ml BID PEPITO Administration Sodium Chloride 10 ml 10/10/20 21:51 Sodium Chloride 0.9% 10 Ml Flush Syringe IV PRN PRN LINE FLUSH
--- NOTE | 2020-10-13 14:18 | Progress Note ---
Assessment and Plan Cardiac arrest x3 with ROSC Severe septic and cardiogenic shock Acute respiratory failure with hypoxemia and hypercarbia Acute pulmonary edema MOE (acute kidney injury) Lactic acidosis, severe metabolic acidosis Bilateral pneumonia, aspiration pneumonia Elevated troponins - continue to hold on full anticoagulation - begin enteral nutrition in am if OK with GI team (output slowing down) - continue PPI drip as ordered - trend H&H (stable last 24 hours) - neurology evaluation ongoing - reduce set rate on MVS to 14/min - repeat ABG in am - repeat lactic acid level now WNL - discontinued femoral CVL & A-line - continue care as below otherwise; - de-escalate empiric anti-infective's per ID rec's (on Cefepime & Azithromycin) - follow clinically re: fevers / WBC - IV heparin for elevated troponins with possible NSTEMI. (on hold now re: ? G.I. Bleed) - Monitor hemodynamics closely - daily SAT's and SBT assessment as tolerated - wean supplemental oxygen for target O2 sat's > 92% acutely - VAP bundle addressed - continue lung protective strategies - bronchodilators with pulmonary hygiene per RT - wean per pulmonary driven protocols otherwise - Monitor urine output closely - bicarbonate infusion - avoid nephrotoxins, renally dose all medications - continue to avoid benzodiazepine's, reduce the possibility of delirium - continue Scopolamine for secretion control - continue wound care per RN/WCN - prn analgesia per CPOT score - Maintenance of sleep-wake cycle, avoid delirium - continue enteral nutritional support at goal rate as tolerated - G.I. & VTE prophylaxis - PT/OT/ROM exercises - continue mobility protocols for pressure ulcer prophylaxis - Monitor hemodynamics closely - continue other care per attending / other consultants - discharge planning ongoing concurrently .... Re-evaluate in am & prn CONDITION: CRITICAL PROGNOSIS: GUARDED CODE STATUS: FULL CODE The high probability of a clinically significant, sudden or life-threatening deterioration of the [respiratory, cardiovascular & neurologic] system(s) required my full and direct attention, intervention and personal management. The aggregate critical care time was [33] minutes without overlap. Time includes spent on; [x] Data Review and interpretation [x] Patient assessment and monitoring of vital signs [x] Documentation [x] Medication orders and management Subjective Date of service: 10/13/20 Principal diagnosis: Cardiac arrest; Septic Shock; Ac. hypoxemic & hypercapnic resp failure; MOE Interval history: Patient is seen today for: Cardiac arrest with ROSC; Severe septic and car diogenic shock; Acute respiratory failure with hypoxemia and hypercarbia; Acute pulmonary edema; MOE; Lactic acidosis; severe metabolic acidosis; Bilateral pneumonia; aspiration pneumonia; Elevated troponins Seen and examined at bedside; 24hour events reviewed; nursing and respiratory c are staff consulted; no adverse overnight events reported to me; resting peacefully in bed; AMS is persistent; seen by GI and started on protonix drip; no gross bleeding; afebrile; no emesis or overt aspireation; alkalosis is better but he is definitely a chronic CO2 retainer Objective Vital Signs - 12hr 10/13/20 10/13/20 10/13/20 02:20 02:30 02:40 Temperature Pulse Rate 79 77 77 Pulse Rate [ From Monitor] Respiratory 30 H 21 20 Rate Blood Pressure 151/73 151/73 138/76 O2 Sat by Pulse 100 100 100 Oximetry 10/13/20 10/13/20 10/13/20 02:50 03:00 03:10 Temperature Pulse Rate 79 88 85 Pulse Rate [ From Monitor] Respiratory 31 H 22 24 Rate Blood Pressure 131/74 146/77 146/77 O2 Sat by Pulse 100 100 100 Oximetry 10/13/20 10/13/20 10/13/20 03:20 03:28 03:30 Temperature 99.1 F Pulse Rate 84 83 Pulse Rate [ From Monitor] Respiratory 28 H 34 H Rate Blood Pressure 150/76 150/76 O2 Sat by Pulse 100 100 Oximetry 10/13/20 10/13/20 10/13/20 03:40 03:50 04:00 Temperature Pulse Rate 87 82 80 Pulse Rate [ 80 From Monitor] Respiratory 28 H 43 H 32 H Rate Blood Pressure 158/82 145/80 153/83 O2 Sat by Pulse 100 100 100 Oximetry 10/13/20 10/13/20 10/13/20 04:10 04:20 04:30 Temperature Pulse Rate 80 88 100 H Pulse Rate [ From Monitor] Respiratory 29 H 31 H 36 H Rate Blood Pressure 163/82 142/79 153/83 O2 Sat by Pulse 100 100 100 Oximetry 10/13/20 10/13/20 10/13/20 04:40 04:50 05:00 Temperature Pulse Rate 86 80 80 Pulse Rate [ From Monitor] Respiratory 38 H 33 H 42 H Rate Blood Pressure 153/83 161/85 O2 Sat by Pulse 100 98 97 Oximetry 10/13/20 10/13/20 10/13/20 05:10 05:20 05:30 Temperature Pulse Rate 78 80 89 Pulse Rate [ From Monitor] Respiratory 36 H 38 H 31 H Rate Blood Pressure 154/91 162/89 162/89 O2 Sat by Pulse 96 96 95 Oximetry 10/13/20 10/13/20 10/13/20 05:40 05:50 06:00 Temperature Pulse Rate 77 83 74 Pulse Rate [ From Monitor] Respiratory 36 H 37 H 33 H Rate Blood Pressure 154/91 157/88 157/88 O2 Sat by Pulse 97 98 97 Oximetry 10/13/20 10/13/20 10/13/20 06:10 06:30 06:45 Temperature Pulse Rate 70 82 79 Pulse Rate [ From Monitor] Respiratory 28 H 31 H 15 Rate Blood Pressure 158/74 146/77 141/69 O2 Sat by Pulse 98 98 99 Oximetry 10/13/20 10/13/20 10/13/20 07:00 07:15 07:30 Temperature Pulse Rate 83 82 83 Pulse Rate [ From Monitor] Respiratory 32 H 19 21 Rate Blood Pressure 141/69 137/77 137/77 O2 Sat by Pulse 99 98 98 Oximetry 10/13/20 10/13/20 10/13/20 07:36 07:45 08:00 Temperature 98.8 F Pulse Rate 84 80 84 Pulse Rate [ 85 From Monitor] Respiratory 20 20 Rate Blood Pressure 143/73 152/76 157/82 O2 Sat by Pulse 98 99 98 Oximetry 10/13/20 10/13/20 10/13/20 08:16 08:30 08:46 Temperature Pulse Rate 80 85 83 Pulse Rate [ From Monitor] Respiratory 20 20 20 Rate Blood Pressure 168/82 168/82 163/86 O2 Sat by Pulse 98 99 98 Oximetry 10/13/20 10/13/20 10/13/20 09:00 09:15 09:30 Temperature Pulse Rate 79 80 78 Pulse Rate [ From Monitor] Respiratory 20 20 20 Rate Blood Pressure 163/86 143/74 143/74 O2 Sat by Pulse 98 98 98 Oximetry 10/13/20 10/13/20 10/13/20 09:45 10:00 10:15 Temperature Pulse Rate 80 83 80 Pulse Rate [ From Monitor] Respiratory 20 19 20 Rate Blood Pressure 131/74 131/74 153/78 O2 Sat by Pulse 99 99 99 Oximetry 10/13/20 10/13/20 10/13/20 10:30 10:46 11:00 Temperature Pulse Rate 78 77 80 Pulse Rate [ From Monitor] Respiratory 19 20 20 Rate Blood Pressure 153/78 154/87 154/87 O2 Sat by Pulse 99 99 98 Oximetry 10/13/20 10/13/20 10/13/20 11:09 11:16 11:30 Temperature Pulse Rate 78 81 96 H Pulse Rate [ From Monitor] Respiratory 21 19 Rate Blood Pressure 156/76 151/79 151/79 O2 Sat by Pulse 99 96 96 Oximetry 10/13/20 10/13/20 10/13/20 11:46 12:00 12:09 Temperature 98.4 F Pulse Rate 86 86 82 Pulse Rate [ From Monitor] Respiratory 20 19 Rate Blood Pressure 166/76 166/76 166/71 O2 Sat by Pulse 94 94 Oximetry 10/13/20 10/13/20 10/13/20 12:16 12:18 12:30 Temperature Pulse Rate 75 76 81 Pulse Rate [ From Monitor] Respiratory 20 20 Rate Blood Pressure 135/72 135/72 133/76 O2 Sat by Pulse 94 94 Oximetry 10/13/20 10/13/20 10/13/20 12:45 13:00 13:15 Temperature Pulse Rate 77 75 87 Pulse Rate [ From Monitor] Respiratory 20 20 20 Rate Blood Pressure 141/76 138/79 133/70 O2 Sat by Pulse 93 95 94 Oximetry 10/13/20 10/13/20 10/13/20 13:30 13:45 14:00 Temperature Pulse Rate 79 78 75 Pulse Rate [ From Monitor] Respiratory 20 20 20 Rate Blood Pressure 133/70 147/79 141/79 O2 Sat by Pulse 95 97 97 Oximetry Constitutional: no acute distress, other (middle aged obese male with mildly increased respiratory efort at rest) Eyes: non-icteric ENT: oropharynx moist, other (ETT 23 cm ANNIE) Neck: supple, no lymphadenopathy, no JVD Effort: normal Ascultation: Bilateral: diminished breath sounds, rhonchi (scant) Percussion: Bilateral: not dull Cardiovascular: regular rate and rhythm Gastrointestinal: normoactive bowel sounds, soft, non-tender, non-distended Integumentary: normal Extremities: no cyanosis, no edema, pulses normal, no ischemia or petechiae Neurologic: pupils equal and round, unable to assess Psychiatric: other (unable to assess re: AMS) CBC and BMP: 10/13/20 04:52 10/13/20 04:52 ABG, PT/INR, D-dimer: ABG ABG pH 7.485 (7.320-7.450) H 10/13/20 02:28 POC ABG pCO2 57.1 mmHg (32.0-48.0) H 10/13/20 02:28 ABG pCO2 75.3 mm Hg 10/10/20 15:50 POC ABG pO2 102.1 mmHg (83-108) 10/13/20 02:28 ABG pO2 60.3 mm Hg (80.0-90.0) L 10/10/20 15:50 POC ABG HCO3 42.1 10/13/20 02:28 ABG O2 Saturation 97.9 (0-100) 10/13/20 02:28 PT/INR, D-dimer PT 13.8 Sec. (12.2-14.9) 10/10/20 18:18 INR 1.07 (0.87-1.13) 10/10/20 18:18 D-Dimer 679.5 ng/mlDDU (0-234) H 10/10/20 10:48 Abnormal lab findings: Abnormal Labs 10/10/20 10/10/20 10/10/20 10:46 10:46 10:46 WBC RBC Hgb Hct RDW Lymph % (Auto) Lymph # (Auto) Seg Neutrophils % Lymphocytes % (Manual) Monocytes % (Manual) Seg Neutrophils # Seg Neutrophils # Man Lymphocytes # (Manual) Monocytes # (Manual) D-Dimer Heparin Anti-Xa Level ABG pH POC ABG pCO2 POC ABG pO2 ABG pO2 ABG HCO3 ABG O2 Saturation ABG Oxyhemoglobin ABG Sodium ABG Potassium ABG Chloride ABG Glucose VBG pH Oxyhemoglobin Sodium Potassium Chloride Carbon Dioxide BUN Creatinine Glucose POC Glucose Lactic Acid 13.60 H* Calcium Magnesium AST ALT Ammonia 214.0 H Lactate Dehydrogenase Total Creatine Kinase CK-MB (CK-2) Troponin T NT-Pro-B Natriuret Pep Total Protein Albumin Triglycerides TSH 6.260 H Arterial Blood Glucose Arterial Blood Ionized Calcium Urine pH Urine WBC (Auto) Urine Creatinine 10/10/20 10/10/2010/10/21 10:46 10:48 10:48 WBC RBC 5.28 H Hgb 15.5 H Hct 48.8 H RDW Lymph % (Auto) Lymph # (Auto) Seg Neutrophils % Lymphocytes % (Manual) 42.0 H Monocytes % (Manual) Seg Neutrophils # Seg Neutrophils # Man Lymphocytes # (Manual) Monocytes # (Manual) D-Dimer Heparin Anti-Xa Level ABG pH POC ABG pCO2 POC ABG pO2 ABG pO2 ABG HCO3 ABG O2 Saturation ABG Oxyhemoglobin ABG Sodium ABG Potassium ABG Chloride ABG Glucose VBG pH Oxyhemoglobin Sodium Potassium 3.3 L Chloride 91.2 L Carbon Dioxide BUN Creatinine 1.8 H Glucose 231 H POC Glucose Lactic Acid Calcium Magnesium AST 60 H ALT 57 H Ammonia Lactate Dehydrogenase Total Creatine Kinase CK-MB (CK-2) Troponin T NT-Pro-B Natriuret Pep 1187 H Total Protein 9.0 H Albumin Triglycerides TSH Arterial Blood Glucose Arterial Blood Ionized Calcium Urine pH Urine WBC (Auto) Urine Creatinine 10/10/20 10/10/20 10/10/20 10:48 10:48 10:48 WBC RBC Hgb Hct RDW Lymph % (Auto) Lymph # (Auto) Seg Neutrophils % Lymphocytes % (Manual) Monocytes % (Manual) Seg Neutrophils # Seg Neutrophils # Man Lymphocytes # (Manual) Monocytes # (Manual) D-Dimer 679.5 H Heparin Anti-Xa Level ABG pH POC ABG pCO2 POC ABG pO2 ABG pO2 ABG HCO3 ABG O2 Saturation ABG Oxyhemoglobin ABG Sodium ABG Potassium ABG Chloride ABG Glucose VBG pH 6.870 L* Oxyhemoglobin Sodium Potassium Chloride Carbon Dioxide BUN Creatinine Glucose POC Glucose Lactic Acid Calcium Magnesium AST ALT Ammonia Lactate Dehydrogenase 386 H Total Creatine Kinase CK-MB (CK-2) Troponin T NT-Pro-B Natriuret Pep Total Protein Albumin Triglycerides TSH Arterial Blood Glucose Arterial Blood Ionized Calcium Urine pH Urine WBC (Auto) Urine Creatinine 10/10/20 10/10/20 10/10/20 14:10 14:20 15:50 WBC RBC Hgb Hct RDW Lymph % (Auto) Lymph # (Auto) Seg Neutrophils % Lymphocytes % (Manual) Monocytes % (Manual) Seg Neutrophils # Seg Neutrophils # Man Lymphocytes # (Manual) Monocytes # (Manual) D-Dimer Heparin Anti-Xa Level ABG pH 7.175 L 7.247 L POC ABG pCO2 85.0 H POC ABG pO2 43.7 L ABG pO2 60.3 L ABG HCO3 32.0 H ABG O2 Saturation 86.1 L ABG Oxyhemoglobin 67.7 L ABG Sodium ABG Potassium ABG Chloride ABG Glucose 247 H VBG pH Oxyhemoglobin 84.4 L Sodium Potassium Chloride Carbon Dioxide BUN Creatinine Glucose POC Glucose Lactic Acid 4.00 H* Calcium Magnesium AST ALT Ammonia Lactate Dehydrogenase Total Creatine Kinase CK-MB (CK-2) Troponin T NT-Pro-B Natriuret Pep Total Protein Albumin Triglycerides TSH Arterial Blood Glucose 247 H Arterial Blood Ionized Calcium 4.4 L Urine pH Urine WBC (Auto) Urine Creatinine 10/10/20 10/10/20 10/10/20 15:50 16:22 18:18 WBC RBC Hgb Hct RDW Lymph % (Auto) Lymph # (Auto) Seg Neutrophils % Lymphocytes % (Manual) Monocytes % (Manual) Seg Neutrophils # Seg Neutrophils # Man Lymphocytes # (Manual) Monocytes # (Manual) D-Dimer Heparin Anti-Xa Level ABG pH 7.171 L POC ABG pCO2 96.6 H POC ABG pO2 55.3 L ABG pO2 ABG HCO3 ABG O2 Saturation ABG Oxyhemoglobin 81.4 L ABG Sodium ABG Potassium ABG Chloride ABG Glucose 115 H VBG pH Oxyhemoglobin Sodium Potassium Chloride Carbon Dioxide BUN Creatinine Glucose POC Glucose 132 H Lactic Acid Calcium Magnesium AST ALT Ammonia Lactate Dehydrogenase Total Creatine Kinase 1192 H CK-MB (CK-2) 21.7 H Troponin T 0.377 H* D NT-Pro-B Natriuret Pep Total Protein Albumin Triglycerides TSH Arterial Blood Glucose 115 H Arterial Blood Ionized Calcium Urine pH Urine WBC (Auto) Urine Creatinine 10/10/20 10/10/20 10/10/20 18:18 18:18 22:49 WBC 23.0 H RBC 5.12 H Hgb Hct RDW Lymph % (Auto) Lymph # (Auto) Seg Neutrophils % Lymphocytes % (Manual) 4.0 L Monocytes % (Manual) 9.0 H Seg Neutrophils # Seg Neutrophils # Man 13.8 H Lymphocytes # (Manual) 0.9 L Monocytes # (Manual) 2.1 H D-Dimer Heparin Anti-Xa Level ABG pH POC ABG pCO2 POC ABG pO2 ABG pO2 ABG HCO3 ABG O2 Saturation ABG Oxyhemoglobin ABG Sodium ABG Potassium ABG Chloride ABG Glucose VBG pH Oxyhemoglobin Sodium 146 H Potassium Chloride Carbon Dioxide 34 H D BUN 27 H Creatinine 2.7 H Glucose 102 H POC Glucose Lactic Acid Calcium Magnesium AST 90 H ALT 66 H Ammonia Lactate Dehydrogenase Total Creatine Kinase CK-MB (CK-2) Troponin T 0.273 H* D NT-Pro-B Natriuret Pep Total Protein Albumin Triglycerides TSH Arterial Blood Glucose Arterial Blood Ionized Calcium Urine pH Urine WBC (Auto) Urine Creatinine 10/11/20 10/11/20 10/11/20 02:00 02:00 02:00 WBC 17.3 H RBC Hgb Hct RDW Lymph % (Auto) 3.9 L Lymph # (Auto) 0.7 L Seg Neutrophils % 93.0 H Lymphocytes % (Manual) Monocytes % (Manual) Seg Neutrophils # 16.1 H Seg Neutrophils # Man Lymphocytes # (Manual) Monocytes # (Manual) D-Dimer Heparin Anti-Xa Level ABG pH POC ABG pCO2 POC ABG pO2 ABG pO2 ABG HCO3 ABG O2 Saturation ABG Oxyhemoglobin ABG Sodium ABG Potassium ABG Chloride ABG Glucose VBG pH Oxyhemoglobin Sodium 149 H Potassium 3.3 L Chloride 95.3 L Carbon Dioxide 37 H BUN 29 H Creatinine 2.6 H Glucose POC Glucose Lactic Acid Calcium Magnesium AST 80 H ALT 59 H Ammonia Lactate Dehydrogenase Total Creatine Kinase CK-MB (CK-2) Troponin T 0.201 H* D NT-Pro-B Natriuret Pep Total Protein Albumin 3.6 L Triglycerides TSH Arterial Blood Glucose Arterial Blood Ionized Calcium Urine pH Urine WBC (Auto) Urine Creatinine 10/11/20 10/11/20 10/11/20 03:51 08:35 11:15 WBC RBC Hgb Hct RDW Lymph % (Auto) Lymph # (Auto) Seg Neutrophils % Lymphocytes % (Manual) Monocytes % (Manual) Seg Neutrophils # Seg Neutrophils # Man Lymphocytes # (Manual) Monocytes # (Manual) D-Dimer Heparin Anti-Xa Level 0.22 L ABG pH 7.491 H POC ABG pCO2 57.6 H POC ABG pO2 ABG pO2 ABG HCO3 ABG O2 Saturation ABG Oxyhemoglobin ABG Sodium 150.0 H ABG Potassium 3.1 L ABG Chloride 96.0 L ABG Glucose 122 H VBG pH Oxyhemoglobin Sodium Potassium Chloride Carbon Dioxide BUN Creatinine Glucose POC Glucose 151 H Lactic Acid Calcium Magnesium AST ALT Ammonia Lactate Dehydrogenase Total Creatine Kinase CK-MB (CK-2) Troponin T NT-Pro-B Natriuret Pep Total Protein Albumin Triglycerides TSH Arterial Blood Glucose 122 H Arterial Blood Ionized Calcium 3.9 L Urine pH Urine WBC (Auto) Urine Creatinine 10/11/20 10/11/20 10/11/20 13:30 13:30 13:30 WBC 15.0 H RBC Hgb Hct RDW Lymph % (Auto) Lymph # (Auto) Seg Neutrophils % Lymphocytes % (Manual) Monocytes % (Manual) Seg Neutrophils # Seg Neutrophils # Man Lymphocytes # (Manual) Monocytes # (Manual) D-Dimer Heparin Anti-Xa Level ABG pH POC ABG pCO2 POC ABG pO2 ABG pO2 ABG HCO3 ABG O2 Saturation ABG Oxyhemoglobin ABG Sodium ABG Potassium ABG Chloride ABG Glucose VBG pH Oxyhemoglobin Sodium Potassium Chloride Carbon Dioxide BUN Creatinine Glucose POC Glucose Lactic Acid Calcium Magnesium AST ALT Ammonia Lactate Dehydrogenase Total Creatine Kinase CK-MB (CK-2) Troponin T NT-Pro-B Natriuret Pep Total Protein Albumin Triglycerides TSH Arterial Blood Glucose Arterial Blood Ionized Calcium Urine pH 9.0 H Urine WBC (Auto) 18.0 H Urine Creatinine 80.5 H 10/11/20 10/11/20 10/12/20 17:17 23:14 03:53 WBC RBC Hgb Hct RDW Lymph % (Auto) Lymph # (Auto) Seg Neutrophils % Lymphocytes % (Manual) Monocytes % (Manual) Seg Neutrophils # Seg Neutrophils # Man Lymphocytes # (Manual) Monocytes # (Manual) D-Dimer Heparin Anti-Xa Level ABG pH 7.545 H POC ABG pCO2 54.6 H POC ABG pO2 231.9 H ABG pO2 ABG HCO3 ABG O2 Saturation ABG Oxyhemoglobin 98.5 H ABG Sodium 150.5 H ABG Potassium 3.2 L ABG Chloride 96.0 L ABG Glucose 148 H VBG pH Oxyhemoglobin Sodium Potassium Chloride Carbon Dioxide BUN Creatinine Glucose POC Glucose 121 H 135 H Lactic Acid Calcium Magnesium AST ALT Ammonia Lactate Dehydrogenase Total Creatine Kinase CK-MB (CK-2) Troponin T NT-Pro-B Natriuret Pep Total Protein Albumin Triglycerides TSH Arterial Blood Glucose 148 H Arterial Blood Ionized Calcium 3.8 L Urine pH Urine WBC (Auto) Urine Creatinine 10/12/20 10/12/20 10/12/20 04:00 05:10 05:12 WBC 14.3 H RBC Hgb 11.6 L Hct 35.2 L RDW Lymph % (Auto) Lymph # (Auto) Seg Neutrophils % Lymphocytes % (Manual) Monocytes % (Manual) Seg Neutrophils # Seg Neutrophils # Man Lymphocytes # (Manual) Monocytes # (Manual) D-Dimer Heparin Anti-Xa Level ABG pH POC ABG pCO2 POC ABG pO2 ABG pO2 ABG HCO3 ABG O2 Saturation ABG Oxyhemoglobin ABG Sodium ABG Potassium ABG Chloride ABG Glucose VBG pH Oxyhemoglobin Sodium 155 H Potassium 3.3 L Chloride 97.9 L Carbon Dioxide 47 H* D BUN 50 H Creatinine 3.4 H Glucose 146 H POC Glucose 137 H Lactic Acid Calcium 8.0 L Magnesium AST ALT Ammonia Lactate Dehydrogenase Total Creatine Kinase CK-MB (CK-2) Troponin T 0.125 H* D NT-Pro-B Natriuret Pep Total Protein Albumin Triglycerides TSH Arterial Blood Glucose Arterial Blood Ionized Calcium Urine pH Urine WBC (Auto) Urine Creatinine 10/12/20 10/12/20 10/12/20 11:39 16:01 19:49 WBC RBC Hgb Hct RDW Lymph % (Auto) Lymph # (Auto) Seg Neutrophils % Lymphocytes % (Manual) Monocytes % (Manual) Seg Neutrophils # Seg Neutrophils # Man Lymphocytes # (Manual) Monocytes # (Manual) D-Dimer Heparin Anti-Xa Level ABG pH POC ABG pCO2 POC ABG pO2 ABG pO2 ABG HCO3 ABG O2 Saturation ABG Oxyhemoglobin ABG Sodium ABG Potassium ABG Chloride ABG Glucose VBG pH Oxyhemoglobin Sodium 157 H Potassium 3.3 L Chloride Carbon Dioxide 47 H* BUN 52 H Creatinine 3.0 H Glucose 137 H POC Glucose 138 H 119 H Lactic Acid Calcium 8.0 L Magnesium AST ALT Ammonia Lactate Dehydrogenase Total Creatine Kinase CK-MB (CK-2) Troponin T NT-Pro-B Natriuret Pep Total Protein Albumin Triglycerides TSH Arterial Blood Glucose Arterial Blood Ionized Calcium Urine pH Urine WBC (Auto) Urine Creatinine 10/12/20 10/13/20 10/13/20 23:37 02:28 04:52 WBC RBC Hgb Hct RDW Lymph % (Auto) Lymph # (Auto) Seg Neutrophils % Lymphocytes % (Manual) Monocytes % (Manual) Seg Neutrophils # Seg Neutrophils # Man Lymphocytes # (Manual) Monocytes # (Manual) D-Dimer Heparin Anti-Xa Level ABG pH 7.485 H POC ABG pCO2 57.1 H POC ABG pO2 ABG pO2 ABG HCO3 ABG O2 Saturation ABG Oxyhemoglobin ABG Sodium 152.4 H ABG Potassium ABG Chloride ABG Glucose 129 H VBG pH Oxyhemoglobin Sodium 155 H Potassium Chloride Carbon Dioxide 45 H* BUN 52 H Creatinine 2.7 H Glucose 121 H POC Glucose 131 H Lactic Acid Calcium Magnesium 2.40 H AST ALT Ammonia Lactate Dehydrogenase Total Creatine Kinase CK-MB (CK-2) Troponin T NT-Pro-B Natriuret Pep Total Protein Albumin Triglycerides 278 H TSH Arterial Blood Glucose 129 H Arterial Blood Ionized Calcium 4.1 L Urine pH Urine WBC (Auto) Urine Creatinine 10/13/20 10/13/20 10/13/20 04:52 05:13 11:37 WBC 14.7 H RBC Hgb 11.7 L Hct RDW 15.8 H Lymph % (Auto) Lymph # (Auto) Seg Neutrophils % Lymphocytes % (Manual) Monocytes % (Manual) Seg Neutrophils # Seg Neutrophils # Man Lymphocytes # (Manual) Monocytes # (Manual) D-Dimer Heparin Anti-Xa Level ABG pH POC ABG pCO2 POC ABG pO2 ABG pO2 ABG HCO3 ABG O2 Saturation ABG Oxyhemoglobin ABG Sodium ABG Potassium ABG Chloride ABG Glucose VBG pH Oxyhemoglobin Sodium Potassium Chloride Carbon Dioxide BUN Creatinine Glucose POC Glucose 116 H 116 H Lactic Acid Calcium Magnesium AST ALT Ammonia Lactate Dehydrogenase Total Creatine Kinase CK-MB (CK-2) Troponin T NT-Pro-B Natriuret Pep Total Protein Albumin Triglycerides TSH Arterial Blood Glucose Arterial Blood Ionized Calcium Urine pH Urine WBC (Auto) Urine Creatinine Allied health notes reviewed: nursing
--- NOTE | 2020-10-13 14:19 | Event Note ---
I spoke to his at [facility] [phone] and updated. I answered her questions to the best of my ability. She was appreciative of the update and asked to be contacted with any new events.
--- NOTE | 2020-10-13 14:26 | Consultation ---
History of Present Illness Consult date: 10/13/20 Reason for Consult: post code Chief complaint: AMS History of present illness: 55 yo male with htn, asthma, who presented as being found unresponsive in his car and underwent ACLS protocol from the field to the ED where he was intubated. Noted with possible seizure activity and he arrested again. He coded again in the CT scanner. Coded again upon arrival to the ICU. Hospital course includes the diagnosis of pneumonia w/ associated sepsis, nstemi, gi bleed (on heparin gtt), transaminitis, hypernatremia, and renal failure. Per RN, today's exam off sedation revealed the patient to be unresponsive. He is on a propofol gtt. No clinical seizure activity noted in the last 24 hours. Past History Past Medical History: hypertension, other (See HPI.) Medications and Allergies Allergies Allergy/AdvReac Type Severity Reaction Status Date / Time No Known Allergies Allergy Unverified 07/06/13 15:19 Home Medications Medication Instructions Recorded Confirmed Last Taken Type Albuterol Sulfate [Ventolin HFA] 2 puff IH Q4H PRN #1 [email or web address] 07/06/13 Unknown Rx Prednisone 40 mg PO QDAY #8 tablet 07/06/13 Unknown Rx Albuterol Mdi (or & Nicu Only) 2 puff IH Q4H PRN #1 inha 07/07/13 Unknown Rx [ProAir HFA Inhaler] Azithromycin [Zithromax Z-KYLE] 500 mg PO QDAY #5 tab 07/07/13 Unknown Rx HYDROcodone/APAP 5-325 [[place] 2 each PO Q6H PRN #30 tablet 07/07/13 Unknown Rx 5-325 mg TAB] predniSONE [Deltasone] 40 mg PO QDAY #10 tablet 07/07/13 Unknown Rx Active Meds: Active Medications Acetaminophen (Acetaminophen 325 Mg Tab) 650 mg PO Q4H PRN PRN Reason: Pain MILD(1-3)/Fever >100.5/[place] Acetaminophen (Acetaminophen 650 Mg Rect Supp) 650 mg AL Q6H PRN PRN Reason: Fever >101 Last Admin: 10/11/20 12:05 Dose: 650 mg Documented by: Albuterol (Albuterol 2.5 Mg/3 Ml Nebu) 2.5 mg IH Q6HRT PRN PRN Reason: Shortness Of Breath Lipase/Protease/Amylase (Lipase 10,500/Protease 25,000/Amylase 43,750 (Units) Dr Cap) 1 each FEEDTUBE PRN PRN PRN Reason: For Clogged Feeding Tube Heparin Sodium (Porcine) (Heparin 5,000 Unit/1 Ml Vial) 5,000 unit SUB-Q Q12HR PEPITO Last Admin: 10/13/20 09:40 Dose: 5,000 unit Documented by: Hydralazine HCl (Hydralazine 20 Mg/1 Ml Inj) 20 mg IV Q6H PEPITO Last Admin: 10/13/20 12:18 Dose: 20 mg Documented by: Hydromorphone HCl (Hydromorphone 1 Mg/1 Ml Inj) 0.5 mg IV Q3H PRN PRN Reason: Pain , Severe (7-10) Last Admin: 10/12/20 12:53 Dose: 0.5 mg Documented by: Hydrophilic Ointment (Lip Therapy Vaseline) 1 applic TP Q2HR PRN PRN Reason: Dry Lips Propofol (Diprivan 10 Mg/Ml) 1,000 mg in 100 mls @ 4.23 mls/hr IV TITR PEPITO; Protocol Last Admin: 10/13/20 10:44 Dose: 20 mcg/kg/min, 16.92 mls/hr Documented by: Nitroglycerin/Dextrose (Tridil Drip 50mg/250ml) 50 mg in 250 mls @ 3 mls/hr IV TITR PEPITO; Protocol Last Titration: 10/10/20 13:17 Dose: 0 mcg/min, 0 mls/hr Documented by: Norepinephrine 8 mg/ Sodium (Chloride) 250 mls @ 3.75 mls/hr IV TITRATE PEPITO; Protocol Last Titration: 10/10/20 22:15 Dose: 0 mcg/min, 0 mls/hr Documented by: Cefepime HCl (Cefepime/Ns 2 Gm/100 Ml) 2 gm in 100 mls @ 200 mls/hr IV Q24H PEPITO; Protocol Last Admin: 10/12/20 22:26 Dose: 200 mls/hr Documented by: Azithromycin (Zithromax/Ns) 500 mg in 250 mls @ 250 mls/hr IV Q24H PEPITO Stop: 10/15/20 13:59 Last Admin: 10/13/20 12:10 Dose: 250 mls/hr Documented by: Dextrose (D5w) 1,000 mls @ 50 mls/hr IV DIRECT [facility] Last Admin: 10/12/20 22:30 Dose: 50 mls/hr Documented by: Metoclopramide HCl (Metoclopramide 10 Mg/2 Ml Inj) 10 mg IV Q6H PRN PRN Reason: Nausea And Vomiting Metoprolol Tartrate (Metoprolol Tartrate 5 Mg/5 Ml Inj) 5 mg IV Q6HR [facility] Last Admin: 10/13/20 12:09 Dose: 5 mg Documented by: Multi-Ingred Cream/Lotion/Oil/Oint (Mineral Oil/Petrolatum, White Ophth Oint 3.5 Gm) 1 applic OU Q4HR PRN PRN Reason: Dry Eye(s) Ondansetron HCl (Ondansetron 4 Mg/2 Ml Inj) 4 mg IV Q3H PRN PRN Reason: Nausea And Vomiting Pantoprazole Sodium (Pantoprazole 40 Mg Inj) 40 mg IV BID [facility] Last Admin: 10/13/20 09:40 Dose: 40 mg Documented by: Simple Syrup (Simple Syrup 15 Ml) 15 ml FEEDTUBE PRN PRN PRN Reason: Hypoglycemia Simple Syrup (Simple Syrup 15 Ml) 30 ml FEEDTUBE PRN PRN PRN Reason: Hypoglycemia Sodium Bicarbonate (Sodium Bicarbonate 325 Mg Tab) 325 mg FEEDTUBE PRN PRN PRN Reason: For Clogged Feeding Tube Sodium Chloride (Sodium Chloride 0.9% 10 Ml Flush Syringe) 10 ml IV BID [facility] Last Admin: 10/13/20 09:41 Dose: 10 ml Documented by: Sodium Chloride (Sodium Chloride 0.9% 10 Ml Flush Syringe) 10 ml IV PRN PRN PRN Reason: LINE FLUSH Review of Systems ROS unobtainable: due to mental status Physical Examination - Vital Signs Vital Signs: Vital Signs Pulse Resp BP 119 H 26 H 228/162 10/10/20 10:34 10/10/20 10:34 10/10/20 10:34 - Physical Exam Narrative exam: Gen: nad, well-nourished, intubated; Head: normocephalic; Eyes: no gaze deviation; no ptosis appreciated; ENT: +ETT; CVS: warm and well-perfused; Pulm: no respiratory distress; GI: non-distended, protuberant; Ext: no cyanosis at distal extremities; Skin: no acute rash at distal extremities; Heme: no bruising or ecchymosis at distal extremities; Neuro (on Propofol 20): obtunded, intubated, CN 2 - nonreactive pupils, CN 3, 4, 6 - oculocephalic absent, CN 5/7 - corneal reflex absent but eyes open with painful stimuli; CN 9/10 - no cough noted via ETT, CN 11/12 - pt cannot cooperate secondary to LOC; Motor/Sensory - at least 0/5 in all exts to tactile stimuli; Cerebellar/Gait - pt cannot cooperate secondary to LOC; NIHSS>25 Results - Laboratory Findings CBC and BMP: 10/13/20 04:52 10/13/20 04:52 Abnormal Lab Findings: Abnormal Labs 10/10/20 10/10/20 10/10/20 10:46 10:46 10:46 WBC RBC Hgb Hct RDW Lymph % (Auto) Lymph # (Auto) Seg Neutrophils % Lymphocytes % (Manual) Monocytes % (Manual) Seg Neutrophils # Seg Neutrophils # Man Lymphocytes # (Manual) Monocytes # (Manual) D-Dimer Heparin Anti-Xa Level ABG pH POC ABG pCO2 POC ABG pO2 ABG pO2 ABG HCO3 ABG O2 Saturation ABG Oxyhemoglobin ABG Sodium ABG Potassium ABG Chloride ABG Glucose VBG pH Oxyhemoglobin Sodium Potassium Chloride Carbon Dioxide BUN Creatinine Glucose POC Glucose Lactic Acid 13.60 H* Calcium Magnesium AST ALT Ammonia 214.0 H Lactate Dehydrogenase Total Creatine Kinase CK-MB (CK-2) Troponin T NT-Pro-B Natriuret Pep Total Protein Albumin Triglycerides TSH 6.260 H Arterial Blood Glucose Arterial Blood Ionized Calcium Urine pH Urine WBC (Auto) Urine Creatinine 10/10/20 10/10/20 10/10/20 10:46 10:48 10:48 WBC RBC 5.28 H Hgb 15.5 H Hct 48.8 H RDW Lymph % (Auto) Lymph # (Auto) Seg Neutrophils % Lymphocytes % (Manual) 42.0 H Monocytes % (Manual) Seg Neutrophils # Seg Neutrophils # Man Lymphocytes # (Manual) Monocytes # (Manual) D-Dimer Heparin Anti-Xa Level ABG pH POC ABG pCO2 POC ABG pO2 ABG pO2 ABG HCO3 ABG O2 Saturation ABG Oxyhemoglobin ABG Sodium ABG Potassium ABG Chloride ABG Glucose VBG pH Oxyhemoglobin Sodium Potassium 3.3 L Chloride 91.2 L Carbon Dioxide BUN Creatinine 1.8 H Glucose 231 H POC Glucose Lactic Acid Calcium Magnesium AST 60 H ALT 57 H Ammonia Lactate Dehydrogenase Total Creatine Kinase CK-MB (CK-2) Troponin T NT-Pro-B Natriuret Pep 1187 H Total Protein 9.0 H Albumin Triglycerides TSH Arterial Blood Glucose Arterial Blood Ionized Calcium Urine pH Urine WBC (Auto) Urine Creatinine 10/10/20 10/10/20 10/10/20 10:48 10:48 10:48 WBC RBC Hgb Hct RDW Lymph % (Auto) Lymph # (Auto) Seg Neutrophils % Lymphocytes % (Manual) Monocytes % (Manual) Seg Neutrophils # Seg Neutrophils # Man Lymphocytes # (Manual) Monocytes # (Manual) D-Dimer 679.5 H Heparin Anti-Xa Level ABG pH POC ABG pCO2 POC ABG pO2 ABG pO2 ABG HCO3 ABG O2 Saturation ABG Oxyhemoglobin ABG Sodium ABG Potassium ABG Chloride ABG Glucose VBG pH 6.870 L* Oxyhemoglobin Sodium Potassium Chloride Carbon Dioxide BUN Creatinine Glucose POC Glucose Lactic Acid Calcium Magnesium AST ALT Ammonia Lactate Dehydrogenase 386 H Total Creatine Kinase CK-MB (CK-2) Troponin T NT-Pro-B Natriuret Pep Total Protein Albumin Triglycerides TSH Arterial Blood Glucose Arterial Blood Ionized Calcium Urine pH Urine WBC (Auto) Urine Creatinine 10/10/20 10/10/20 10/10/20 14:10 14:20 15:50 WBC RBC Hgb Hct RDW Lymph % (Auto) Lymph # (Auto) Seg Neutrophils % Lymphocytes % (Manual) Monocytes % (Manual) Seg Neutrophils # Seg Neutrophils # Man Lymphocytes # (Manual) Monocytes # (Manual) D-Dimer Heparin Anti-Xa Level ABG pH 7.175 L 7.247 L POC ABG pCO2 85.0 H POC ABG pO2 43.7 L ABG pO2 60.3 L ABG HCO3 32.0 H ABG O2 Saturation 86.1 L ABG Oxyhemoglobin 67.7 L ABG Sodium ABG Potassium ABG Chloride ABG Glucose 247 H VBG pH Oxyhemoglobin 84.4 L Sodium Potassium Chloride Carbon Dioxide BUN Creatinine Glucose POC Glucose Lactic Acid 4.00 H* Calcium Magnesium AST ALT Ammonia Lactate Dehydrogenase Total Creatine Kinase CK-MB (CK-2) Troponin T NT-Pro-B Natriuret Pep Total Protein Albumin Triglycerides TSH Arterial Blood Glucose 247 H Arterial Blood Ionized Calcium 4.4 L Urine pH Urine WBC (Auto) Urine Creatinine 10/10/20 10/10/20 10/10/20 15:50 16:22 18:18 WBC RBC Hgb Hct RDW Lymph % (Auto) Lymph # (Auto) Seg Neutrophils % Lymphocytes % (Manual) Monocytes % (Manual) Seg Neutrophils # Seg Neutrophils # Man Lymphocytes # (Manual) Monocytes # (Manual) D-Dimer Heparin Anti-Xa Level ABG pH 7.171 L POC ABG pCO2 96.6 H POC ABG pO2 55.3 L ABG pO2 ABG HCO3 ABG O2 Saturation ABG Oxyhemoglobin 81.4 L ABG Sodium ABG Potassium ABG Chloride ABG Glucose 115 H VBG pH Oxyhemoglobin Sodium Potassium Chloride Carbon Dioxide BUN Creatinine Glucose POC Glucose 132 H Lactic Acid Calcium Magnesium AST ALT Ammonia Lactate Dehydrogenase Total Creatine Kinase 1192 H CK-MB (CK-2) 21.7 H Troponin T 0.377 H* D NT-Pro-B Natriuret Pep Total Protein Albumin Triglycerides TSH Arterial Blood Glucose 115 H Arterial Blood Ionized Calcium Urine pH Urine WBC (Auto) Urine Creatinine 10/10/20 10/10/20 10/10/20 18:18 18:18 22:49 WBC 23.0 H RBC 5.12 H Hgb Hct RDW Lymph % (Auto) Lymph # (Auto) Seg Neutrophils % Lymphocytes % (Manual) 4.0 L Monocytes % (Manual) 9.0 H Seg Neutrophils # Seg Neutrophils # Man 13.8 H Lymphocytes # (Manual) 0.9 L Monocytes # (Manual) 2.1 H D-Dimer Heparin Anti-Xa Level ABG pH POC ABG pCO2 POC ABG pO2 ABG pO2 ABG HCO3 ABG O2 Saturation ABG Oxyhemoglobin ABG Sodium ABG Potassium ABG Chloride ABG Glucose VBG pH Oxyhemoglobin Sodium 146 H Potassium Chloride Carbon Dioxide 34 H D BUN 27 H Creatinine 2.7 H Glucose 102 H POC Glucose Lactic Acid Calcium Magnesium AST 90 H ALT 66 H Ammonia Lactate Dehydrogenase Total Creatine Kinase CK-MB (CK-2) Troponin T 0.273 H* D NT-Pro-B Natriuret Pep Total Protein Albumin Triglycerides TSH Arterial Blood Glucose Arterial Blood Ionized Calcium Urine pH Urine WBC (Auto) Urine Creatinine 10/11/20 10/11/20 10/11/20 02:00 02:00 02:00 WBC 17.3 H RBC Hgb Hct RDW Lymph % (Auto) 3.9 L Lymph # (Auto) 0.7 L Seg Neutrophils % 93.0 H Lymphocytes % (Manual) Monocytes % (Manual) Seg Neutrophils # 16.1 H Seg Neutrophils # Man Lymphocytes # (Manual) Monocytes # (Manual) D-Dimer Heparin Anti-Xa Level ABG pH POC ABG pCO2 POC ABG pO2 ABG pO2 ABG HCO3 ABG O2 Saturation ABG Oxyhemoglobin ABG Sodium ABG Potassium ABG Chloride ABG Glucose VBG pH Oxyhemoglobin Sodium 149 H Potassium 3.3 L Chloride 95.3 L Carbon Dioxide 37 H BUN 29 H Creatinine 2.6 H Glucose POC Glucose Lactic Acid Calcium Magnesium AST 80 H ALT 59 H Ammonia Lactate Dehydrogenase Total Creatine Kinase CK-MB (CK-2) Troponin T 0.201 H* D NT-Pro-B Natriuret Pep Total Protein Albumin 3.6 L Triglycerides TSH Arterial Blood Glucose Arterial Blood Ionized Calcium Urine pH Urine WBC (Auto) Urine Creatinine 10/11/20 10/11/20 10/11/20 03:51 08:35 11:15 WBC RBC Hgb Hct RDW Lymph % (Auto) Lymph # (Auto) Seg Neutrophils % Lymphocytes % (Manual) Monocytes % (Manual) Seg Neutrophils # Seg Neutrophils # Man Lymphocytes # (Manual) Monocytes # (Manual) D-Dimer Heparin Anti-Xa Level 0.22 L ABG pH 7.491 H POC ABG pCO2 57.6 H POC ABG pO2 ABG pO2 ABG HCO3 ABG O2 Saturation ABG Oxyhemoglobin ABG Sodium 150.0 H ABG Potassium 3.1 L ABG Chloride 96.0 L ABG Glucose 122 H VBG pH Oxyhemoglobin Sodium Potassium Chloride Carbon Dioxide BUN Creatinine Glucose POC Glucose 151 H Lactic Acid Calcium Magnesium AST ALT Ammonia Lactate Dehydrogenase Total Creatine Kinase CK-MB (CK-2) Troponin T NT-Pro-B Natriuret Pep Total Protein Albumin Triglycerides TSH Arterial Blood Glucose 122 H Arterial Blood Ionized Calcium 3.9 L Urine pH Urine WBC (Auto) Urine Creatinine 10/11/20 10/11/20 10/11/20 13:30 13:30 13:30 WBC 15.0 H RBC Hgb Hct RDW Lymph % (Auto) Lymph # (Auto) Seg Neutrophils % Lymphocytes % (Manual) Monocytes % (Manual) Seg Neutrophils # Seg Neutrophils # Man Lymphocytes # (Manual) Monocytes # (Manual) D-Dimer Heparin Anti-Xa Level ABG pH POC ABG pCO2 POC ABG pO2 ABG pO2 ABG HCO3 ABG O2 Saturation ABG Oxyhemoglobin ABG Sodium ABG Potassium ABG Chloride ABG Glucose VBG pH Oxyhemoglobin Sodium Potassium Chloride Carbon Dioxide BUN Creatinine Glucose POC Glucose Lactic Acid Calcium Magnesium AST ALT Ammonia Lactate Dehydrogenase Total Creatine Kinase CK-MB (CK-2) Troponin T NT-Pro-B Natriuret Pep Total Protein Albumin Triglycerides TSH Arterial Blood Glucose Arterial Blood Ionized Calcium Urine pH 9.0 H Urine WBC (Auto) 18.0 H Urine Creatinine 80.5 H 10/11/20 10/11/20 10/12/20 17:17 23:14 03:53 WBC RBC Hgb Hct RDW Lymph % (Auto) Lymph # (Auto) Seg Neutrophils % Lymphocytes % (Manual) Monocytes % (Manual) Seg Neutrophils # Seg Neutrophils # Man Lymphocytes # (Manual) Monocytes # (Manual) D-Dimer Heparin Anti-Xa Level ABG pH 7.545 H POC ABG pCO2 54.6 H POC ABG pO2 231.9 H ABG pO2 ABG HCO3 ABG O2 Saturation ABG Oxyhemoglobin 98.5 H ABG Sodium 150.5 H ABG Potassium 3.2 L ABG Chloride 96.0 L ABG Glucose 148 H VBG pH Oxyhemoglobin Sodium Potassium Chloride Carbon Dioxide BUN Creatinine Glucose POC Glucose 121 H 135 H Lactic Acid Calcium Magnesium AST ALT Ammonia Lactate Dehydrogenase Total Creatine Kinase CK-MB (CK-2) Troponin T NT-Pro-B Natriuret Pep Total Protein Albumin Triglycerides TSH Arterial Blood Glucose 148 H Arterial Blood Ionized Calcium 3.8 L Urine pH Urine WBC (Auto) Urine Creatinine 10/12/20 10/12/20 10/12/20 04:00 05:10 05:12 WBC 14.3 H RBC Hgb 11.6 L Hct 35.2 L RDW Lymph % (Auto) Lymph # (Auto) Seg Neutrophils % Lymphocytes % (Manual) Monocytes % (Manual) Seg Neutrophils # Seg Neutrophils # Man Lymphocytes # (Manual) Monocytes # (Manual) D-Dimer Heparin Anti-Xa Level ABG pH POC ABG pCO2 POC ABG pO2 ABG pO2 ABG HCO3 ABG O2 Saturation ABG Oxyhemoglobin ABG Sodium ABG Potassium ABG Chloride ABG Glucose VBG pH Oxyhemoglobin Sodium 155 H Potassium 3.3 L Chloride 97.9 L Carbon Dioxide 47 H* D BUN 50 H Creatinine 3.4 H Glucose 146 H POC Glucose 137 H Lactic Acid Calcium 8.0 L Magnesium AST ALT Ammonia Lactate Dehydrogenase Total Creatine Kinase CK-MB (CK-2) Troponin T 0.125 H* D NT-Pro-B Natriuret Pep Total Protein Albumin Triglycerides TSH Arterial Blood Glucose Arterial Blood Ionized Calcium Urine pH Urine WBC (Auto) Urine Creatinine 10/12/20 10/12/20 10/12/20 11:39 16:01 19:49 WBC RBC Hgb Hct RDW Lymph % (Auto) Lymph # (Auto) Seg Neutrophils % Lymphocytes % (Manual) Monocytes % (Manual) Seg Neutrophils # Seg Neutrophils # Man Lymphocytes # (Manual) Monocytes # (Manual) D-Dimer Heparin Anti-Xa Level ABG pH POC ABG pCO2 POC ABG pO2 ABG pO2 ABG HCO3 ABG O2 Saturation ABG Oxyhemoglobin ABG Sodium ABG Potassium ABG Chloride ABG Glucose VBG pH Oxyhemoglobin Sodium 157 H Potassium 3.3 L Chloride Carbon Dioxide 47 H* BUN 52 H Creatinine 3.0 H Glucose 137 H POC Glucose 138 H 119 H Lactic Acid Calcium 8.0 L Magnesium AST ALT Ammonia Lactate Dehydrogenase Total Creatine Kinase CK-MB (CK-2) Troponin T NT-Pro-B Natriuret Pep Total Protein Albumin Triglycerides TSH Arterial Blood Glucose Arterial Blood Ionized Calcium Urine pH Urine WBC (Auto) Urine Creatinine 10/12/20 10/13/20 10/13/20 23:37 02:28 04:52 WBC RBC Hgb Hct RDW Lymph % (Auto) Lymph # (Auto) Seg Neutrophils % Lymphocytes % (Manual) Monocytes % (Manual) Seg Neutrophils # Seg Neutrophils # Man Lymphocytes # (Manual) Monocytes # (Manual) D-Dimer Heparin Anti-Xa Level ABG pH 7.485 H POC ABG pCO2 57.1 H POC ABG pO2 ABG pO2 ABG HCO3 ABG O2 Saturation ABG Oxyhemoglobin ABG Sodium 152.4 H ABG Potassium ABG Chloride ABG Glucose 129 H VBG pH Oxyhemoglobin Sodium 155 H Potassium Chloride Carbon Dioxide 45 H* BUN 52 H Creatinine 2.7 H Glucose 121 H POC Glucose 131 H Lactic Acid Calcium Magnesium 2.40 H AST ALT Ammonia Lactate Dehydrogenase Total Creatine Kinase CK-MB (CK-2) Troponin T NT-Pro-B Natriuret Pep Total Protein Albumin Triglycerides 278 H TSH Arterial Blood Glucose 129 H Arterial Blood Ionized Calcium 4.1 L Urine pH Urine WBC (Auto) Urine Creatinine 10/13/20 10/13/20 10/13/20 04:52 05:13 11:37 WBC 14.7 H RBC Hgb 11.7 L Hct RDW 15.8 H Lymph % (Auto) Lymph # (Auto) Seg Neutrophils % Lymphocytes % (Manual) Monocytes % (Manual) Seg Neutrophils # Seg Neutrophils # Man Lymphocytes # (Manual) Monocytes # (Manual) D-Dimer Heparin Anti-Xa Level ABG pH POC ABG pCO2 POC ABG pO2 ABG pO2 ABG HCO3 ABG O2 Saturation ABG Oxyhemoglobin ABG Sodium ABG Potassium ABG Chloride ABG Glucose VBG pH Oxyhemoglobin Sodium Potassium Chloride Carbon Dioxide BUN Creatinine Glucose POC Glucose 116 H 116 H Lactic Acid Calcium Magnesium AST ALT Ammonia Lactate Dehydrogenase Total Creatine Kinase CK-MB (CK-2) Troponin T NT-Pro-B Natriuret Pep Total Protein Albumin Triglycerides TSH Arterial Blood Glucose Arterial Blood Ionized Calcium Urine pH Urine WBC (Auto) Urine Creatinine Assessment and Plan 55 yo male with htn, asthma, who presented as being found unresponsive and underwent multiple cardiopulmonary arrest events with the first few hours, including a possible seizure event and is noted with underlying pneumonia w/ associated sepsis, nstemi, gi bleed (on heparin gtt), transaminitis, hypernatremia, and renal failure. . 1. Hypoxic Anoxic Encephaloapthy - concern is raised based on clinical history; recommend MR Brain w/o contrast only when patient is clinically stable. 2. Seizure - keppra 500 mg iv q12; eeg ordered/pending. 3. Metabolic Encephalopathy - in the setting of underlying infection/ inflammation/renal failure. 4. NSTEMI - per primary team. Jayson Beebe MD Neurology
--- NOTE | 2020-10-13 15:59 | Progress Note ---
Assessment and Plan he pt is a 55-year-old -[place] male with a past medical history of hypertension, asthma, obesity. He is intubated and sedated on evaluation and thus HPI is obtained per the chart. Pt presented to ED after Covid vaccine and passed out with seizure like activity in the car at the emergency room bay. Patient was found to be unresponsive and with no pulse. ACLS protocol was initiated from the car to the emergency room with continued ACLS protocol. Patient was intubated and after couple of epi ROSC obtained. Central line was p laced and patient was also started on pressors. Patient did not have any fever shortness of breath or cough or any symptoms prior to the COVID-19 vaccination. Patient coded twice in the emergency room. One before the imaging studies and once after the imaging studies. tte reviewed - EF 55-60%, mod LVH, mild diastolic dysfunction. Pt is intubated and sedated. Tele reviewed: SR 78. Episode of 12 beat Vtach overnight. CE's trending downwards, CE elevation appears c/w NSTEMI type II. No systemic AC in setting of suspected GI bleed. Consider resuming if/when ok per Gastroenteroloy recs. F/u CBC in AM. Optimize BPs - continue IV hydralazine, cont IV lopressor. Agree with titrated nitro gtt as necessary for BP control. Pt receiving lasix gtt. Agree with diuresis if ok per nephrology. Await nephrology recs. BMP in AM. Overall guarded prognosis. Will follow. The patient has been seen in conjunction with Dr. Liz Steen who agrees with the assessment and plan of care. - Patient Problems (1) Cardiopulmonary arrest with successful resuscitation Current Visit: Yes Status: Acute (2) Acute respiratory failure Current Visit: Yes Status: Acute Qualifiers: Respiratory failure complication: hypoxia and hypercapnia Qualified Code(s): J96.01 - Acute respiratory failure with hypoxia; J96.02 - Acute respiratory failure with hypercapnia (3) Bilateral pneumonia Current Visit: Yes Status: Acute (4) Sepsis with hypotension Current Visit: Yes Status: Acute (5) Person under investigation for COVID-19 Current Visit: Yes Status: Acute (6) NSTEMI (non-ST elevated myocardial infarction) Current Visit: Yes Status: Acute (7) Acute heart failure Current Visit: Yes Status: Suspected (8) MOE (acute kidney injury) Current Visit: Yes Status: Acute (9) GI bleed Current Visit: Yes Status: Suspected Subjective Date of service: 10/13/20 Principal diagnosis: Cardiac arrest; Septic Shock; Ac. hypoxemic & hypercapnic resp failure; MOE Interval history: Pt is intubated and sedated. Tele reviewed: SR 78. Episode of 12 beat Vtach overnight. Objective Last Vital Signs Temp 98.4 F 10/13/20 12:00 Pulse 90 10/13/20 15:01 Resp 20 10/13/20 14:00 BP 192/102 10/13/20 15:01 Pulse Ox 99 10/13/20 15:01 - Physical Examination General: Other (intubated, sedated) HEENT: Positive: Other (Intubated and sedated) Neck: Positive: neck supple, trachea midline Cardiac: Positive: Reg Rate and Rhythm, S1/S2 Lungs: Positive: Ventilated Respirations Neuro: Positive: Other (intubated, sedated) Abdomen: Positive: Active Bowel Sounds Skin: Negative: Rash Extremities: Present: upper extr. pulses, lower extr. pulses, edema - Labs and Meds Lipids 10/13/20 Range/Units 04:52 Triglycerides 278 H (2-149) mg/dL CBC 10/13/20 Range/Units 04:52 WBC 14.7 H (4.5-11.0) K/mm3 RBC 4.01 (3.65-5.03) M/mm3 Hgb 11.7 L (11.8-15.2) gm/dl Hct 36.9 (35.5-45.6) % Plt Count 156 (140-440) K/mm3 Comprehensive Metabolic Panel 10/12/20 10/13/20 Range/Units 19:49 04:52 Sodium 157 H 155 H (137-145) mmol/L Potassium 3.3 L 3.7 (3.6-5.0) mmol/L Chloride 100.8 103.1 (98-107) mmol/L Carbon Dioxide 47 H* 45 H* (22-30) mmol/L BUN 52 H 52 H (9-20) mg/dL Creatinine 3.0 H 2.7 H (0.8-1.3) mg/dL Glucose 137 H 121 H (75-100) mg/dL Calcium 8.0 L 8.5 (8.4-10.2) mg/dL - Imaging and Cardiology EKG: report reviewed, image reviewed Echo: report reviewed - Telemetry EKG Rhythm: Sinus Rhythm - EKG Sinus rhythms and dysrhythmias: sinus rhythm - Allied health notes Allied health notes reviewed: nursing
[2020-10-13] MEDS: levETIRAcetam 500 MG in DEXTROSE 5% IN WATER 100 ML IV SCH (17:18)
[2020-10-13] MEDS: DEXTROSE 5% IN WATER 1,000 ML IV SCH (19:22)
[2020-10-13] MEDS: CEFEPIME/NS 2 GM/100 ML 2 GM/100 ML BAG IV SCH (21:02)
[2020-10-14] MEDS: hydrALAZINE 20 MG/1 ML INJ IV SCH ×4 (00:08→17:01)
--- NOTE | 2020-10-14 04:21 | XRay Report ---
CHEST 1 VIEW INDICATION: follow up respiratory failure COMPARISON: One day prior. FINDINGS: Support devices: Unchanged. Heart: Stable. Lungs/Pleura: No acute pulmonary or pleural findings. IMPRESSION: 1. No acute disease and no interval change. Signer Name: Babatunde Ortega MD Signed: 10/14/2020 4:17 AM Workstation Name: [id number]
[2020-10-14 05:48] LABS: Hematocrit 37.5 % (35.5-45.6); Hemoglobin 12.1 gm/dl (11.8-15.2); Mean Corpuscular HGB Conc 32 % (32-34); Mean Corpuscular Volume 91 fl (84-94); Platelet Count 153 K/mm3 (140-440); Red Blood Count 4.12 M/mm3 (3.65-5.03); Red Cell Distribution Width 15.3 % (13.2-15.2)
[2020-10-14] MEDS: METOPROLOL TARTRATE 5 MG/5 ML INJ IV SCH ×4 (05:50→23:00)
[2020-10-14 05:52] LABS: Calcium 8.5 mg/dL (8.4-10.2)
[2020-10-14] MEDS ORDERED: POTASSIUM CHLORIDE 20 MEQ PACKET FEEDTUBE NR (08:26)
--- NOTE | 2020-10-14 09:13 | Progress Note ---
Assessment and Plan 1. Acute kidney injury: Vasomotor MOE in the setting of Cardiac arrest and shock. Renal US negative for hydro. Monitor renal function. Creatinine level improving. Renal prognosis is guarded. Avoid nephrotoxic agents. Meds dosage based on GFR. 2. FEN: Volume overload, improving, monitor. Hypokalemia, replete K as needed, monitor. Hypernatremia, continue IV D5W, monitor. Started on Diuril. Metabolic alkalosis, improving, monitor. Monitor lytes and volume status. 3. Acute hypoxic respiratory failure, POA: 2/2 PNA and CHF. COVID test negative. Intubated on vent. D/w ENTERTAINER OR VARIETY ARTIST about CTA chest to r/o PE. 4. Sepsis, POA: 2/2 PNA. Abx. 5. NSTEMI type II: Post cardiac arrest EKG showed no acute ischemic changes. Was on Heparin gtt. Followed by Cards. 6. Acute CHF: Echo showed Normal EF and mild DD. 7. S/p Cardiac arrest. 8. GI bleed. 9. Elevated Transaminases: Trend. 10. HTN: Monitor. Subjective: Patient was seen and examined at the bedside. D/w ENTERTAINER OR VARIETY ARTIST. Objective: General appearance: well-developed, appears stated age, intubated, on vent HEENT: ATNC, MONTSE Neck: trachea midline Respiratory: ctab Heart: regular, S1S2, no murmur Gastrointestinal: soft, normoactive bowel sounds, not tender Integumentary: no rash, warm and dry Ext: no edema Neurologic: not responding Musculoskeletal: no obvious deformity : Tuttle catheter Subjective Date of service: 10/14/20 Principal diagnosis: Cardiac arrest; Septic Shock; Ac. hypoxemic & hypercapnic resp failure; MOE Objective - Vital Signs Vital signs: Vital Signs - 12hr 10/13/20 10/13/20 10/13/20 21:15 21:30 21:46 Temperature Pulse Rate 86 89 85 Pulse Rate [ From Monitor] Respiratory 19 25 H 21 Rate Blood Pressure 158/90 158/90 158/92 O2 Sat by Pulse 98 98 98 Oximetry 10/13/20 10/13/20 10/13/20 22:00 22:15 22:30 Temperature Pulse Rate 90 88 91 H Pulse Rate [ From Monitor] Respiratory 24 22 23 Rate Blood Pressure 163/91 165/85 165/85 O2 Sat by Pulse 98 99 98 Oximetry 10/13/20 10/13/20 10/13/20 22:45 23:00 23:11 Temperature Pulse Rate 88 90 90 Pulse Rate [ From Monitor] Respiratory 23 22 Rate Blood Pressure 167/80 163/75 163/75 O2 Sat by Pulse 98 98 Oximetry 10/13/20 10/13/20 10/13/20 23:15 23:27 23:31 Temperature Pulse Rate 79 96 H 81 Pulse Rate [ From Monitor] Respiratory Rate Blood Pressure 153/88 153/88 133/88 O2 Sat by Pulse 98 98 98 Oximetry 10/13/20 10/13/20 10/13/20 23:41 23:45 23:53 Temperature 100.5 F H Pulse Rate 86 99 H Pulse Rate [ From Monitor] Respiratory Rate Blood Pressure 163/75 148/82 O2 Sat by Pulse 98 98 Oximetry 10/14/20 10/14/20 10/14/20 00:00 00:01 00:08 Temperature Pulse Rate 87 99 H 90 Pulse Rate [ 86 From Monitor] Respiratory 20 Rate Blood Pressure 140/83 140/83 O2 Sat by Pulse 98 98 Oximetry 10/14/20 10/14/20 10/14/20 00:15 00:30 00:45 Temperature Pulse Rate 81 91 H 89 Pulse Rate [ From Monitor] Respiratory Rate Blood Pressure 133/78 126/78 128/83 O2 Sat by Pulse 98 98 98 Oximetry 10/14/20 10/14/20 10/14/20 01:00 01:15 01:31 Temperature Pulse Rate 87 89 87 Pulse Rate [ From Monitor] Respiratory Rate Blood Pressure 111/78 115/76 154/84 O2 Sat by Pulse 98 98 98 Oximetry 10/14/20 10/14/20 10/14/20 01:45 02:01 02:15 Temperature Pulse Rate 89 89 88 Pulse Rate [ From Monitor] Respiratory Rate Blood Pressure 154/78 151/71 181/95 O2 Sat by Pulse 98 97 98 Oximetry 10/14/20 10/14/20 10/14/20 02:30 02:45 03:00 Temperature Pulse Rate 88 90 88 Pulse Rate [ From Monitor] Respiratory Rate Blood Pressure 162/80 164/80 151/77 O2 Sat by Pulse 98 98 98 Oximetry 10/14/20 10/14/20 10/14/20 03:15 03:31 03:39 Temperature 99.3 F Pulse Rate 91 H 91 H Pulse Rate [ From Monitor] Respiratory Rate Blood Pressure 134/83 117/90 O2 Sat by Pulse 99 98 Oximetry 10/14/20 10/14/20 10/14/20 03:45 04:00 04:05 Temperature Pulse Rate 90 86 86 Pulse Rate [ 89 From Monitor] Respiratory 25 H Rate Blood Pressure 151/77 125/89 156/87 O2 Sat by Pulse 98 98 98 Oximetry 10/14/20 10/14/20 10/14/20 04:15 04:30 04:45 Temperature Pulse Rate 87 86 94 H Pulse Rate [ From Monitor] Respiratory Rate Blood Pressure 150/90 156/87 180/90 O2 Sat by Pulse 98 98 98 Oximetry 10/14/20 10/14/20 10/14/20 05:01 05:15 05:30 Temperature Pulse Rate 88 86 91 H Pulse Rate [ From Monitor] Respiratory Rate Blood Pressure 190/89 171/94 180/99 O2 Sat by Pulse 97 98 98 Oximetry 10/14/20 10/14/20 10/14/20 05:45 05:50 06:00 Temperature Pulse Rate 88 80 89 Pulse Rate [ From Monitor] Respiratory 24 Rate Blood Pressure 176/90 176/90 159/76 O2 Sat by Pulse 98 98 Oximetry 10/14/20 08:00 Temperature 99.4 F Pulse Rate Pulse Rate [ From Monitor] Respiratory Rate Blood Pressure O2 Sat by Pulse Oximetry - Lab 10/14/20 04:46 10/14/20 04:46 Most recent lab results ABG pH 7.448 (7.320-7.450) 10/14/20 03:45 ABG pCO2 75.3 mm Hg 10/10/20 15:50 ABG pO2 60.3 mm Hg (80.0-90.0) L 10/10/20 15:50 ABG HCO3 32.0 mmol/L (20.0-26.0) H 10/10/20 15:50 ABG O2 Saturation 97.4 (0-100) 10/14/20 03:45 Calcium 8.5 mg/dL (8.4-10.2) 10/14/20 04:46 Phosphorus 3.60 mg/dL (2.5-4.5) 10/14/20 04:46 Magnesium 2.40 mg/dL (1.7-2.3) H 10/13/20 04:52 Urine Creatinine 80.5 mg/dL (0.1-20.0) H 10/11/20 13:30 Urine Sodium 110 mmol/L 10/11/20 13:30 Medications & Allergies - Medications Allergies/Adverse Reactions: Allergies No Known Allergies Allergy (Unverified 07/06/13 15:19) Home Medications: Home Medications Medication Instructions Recorded Confirmed Last Taken Type Albuterol Sulfate [Ventolin HFA] 2 puff IH Q4H PRN #1 hfa.aer.ad 07/06/13 Unknown Rx Prednisone 40 mg PO QDAY #8 tablet 07/06/13 Unknown Rx Albuterol Mdi (or & Nicu Only) 2 puff IH Q4H PRN #1 inha 07/07/13 Unknown Rx [ProAir HFA Inhaler] Azithromycin [Zithromax Z-KYLE] 500 mg PO QDAY #5 tab 07/07/13 Unknown Rx HYDROcodone/APAP 5-325 [[place] 2 each PO Q6H PRN #30 tablet 07/07/13 Unknown Rx 5-325 mg TAB] predniSONE [Deltasone] 40 mg PO QDAY #10 tablet 07/07/13 Unknown Rx Active Medications: Generic Name Dose Route Start Last Admin Trade Name Freq PRN Reason Stop Dose Admin Acetaminophen 650 mg 10/10/20 21:51 Acetaminophen 325 Mg Tab PO Q4H PRN Pain MILD(1-3)/Fever >100.5/SALVADOR Acetaminophen 650 mg 10/11/20 11:24 10/11/20 12:05 Acetaminophen 650 Mg Rect Supp PA 650 mg Q6H PRN Administration Fever >101 Albuterol 2.5 mg 10/11/20 13:12 Albuterol 2.5 Mg/3 Ml Nebu IH Q6HRT PRN Shortness Of Breath Lipase/Protease/Amylase 1 each 10/10/20 22:18 Lipase 10,500/Protease 25,000/Amylase 43,750 (Units) Dr Santana FEEDTUBE PRN PRN For Clogged Feeding Tube Heparin Sodium (Porcine) 5,000 unit 10/11/20 22:00 10/13/20 21:00 Heparin 5,000 Unit/1 Ml Vial SUB-Q Not Given Q12HR PEPITO Hydralazine HCl 20 mg 10/12/20 12:00 10/14/20 05:50 Hydralazine 20 Mg/1 Ml Inj IV 20 mg Q6H PEPITO Administration Hydromorphone HCl 0.5 mg 10/10/20 21:51 10/12/20 12:53 Hydromorphone 1 Mg/1 Ml Inj IV 0.5 mg Q3H PRN Administration Pain , Severe (7-10) Hydrophilic Ointment 1 applic 10/10/20 10:34 Lip Therapy Vaseline TP Q2HR PRN Dry Lips Propofol 1,000 mg in 100 mls @ 4.23 mls/hr 10/10/20 12:00 10/14/20 02:51 Diprivan 10 Mg/Ml IV 20 mcg/kg/min TITR PEPITO 16.92 mls/hr Administration Protocol 5 MCG/KG/MIN Nitroglycerin/Dextrose 50 mg in 250 mls @ 3 mls/hr 10/10/20 13:00 10/10/20 13:17 Tridil Drip 50mg/250ml IV 0 mcg/min TITR PEPITO 0 mls/hr Titration Protocol 10 MCG/MIN Norepinephrine 8 mg/ Sodium 250 mls @ 3.75 mls/hr 10/10/20 14:00 10/10/20 22:15 Chloride IV 0 mcg/min TITRATE PEPITO 0 mls/hr Titration Protocol 2 MCG/MIN Cefepime HCl 2 gm in 100 mls @ 200 mls/hr 10/12/20 22:00 10/13/20 21:02 Cefepime/Ns 2 Gm/100 Ml IV 200 mls/hr Q24H PEPITO Administration Protocol Azithromycin 500 mg in 250 mls @ 250 mls/hr 10/12/20 13:00 10/13/20 12:10 Zithromax/Ns IV 10/15/20 13:59 250 mls/hr Q24H PEPITO Administration Dextrose 1,000 mls @ 75 mls/hr 10/12/20 21:00 10/13/20 23:38 D5w IV 75 mls/hr DIRECT PEPITO Infusion Levetiracetam 500 mg/ Dextrose 105 mls @ 400 mls/hr 10/13/20 18:00 10/13/20 17:18 IV 400 mls/hr Q12H PEPITO Administration Metoclopramide HCl 10 mg 10/10/20 21:51 Metoclopramide 10 Mg/2 Ml Inj IV Q6H PRN Nausea And Vomiting Metoprolol Tartrate 5 mg 10/11/20 12:00 10/14/20 05:50 Metoprolol Tartrate 5 Mg/5 Ml Inj IV 5 mg Q6HR PEPITO Administration Multi-Ingred Cream/Lotion/Oil/Oint 1 applic 10/10/20 10:34 Mineral Oil/Petrolatum, White Ophth Oint 3.5 Gm OU Q4HR PRN Dry Eye(s) Ondansetron HCl 4 mg 10/10/20 21:51 Ondansetron 4 Mg/2 Ml Inj IV Q3H PRN Nausea And Vomiting Pantoprazole Sodium 40 mg 10/12/20 22:00 10/13/20 21:02 Pantoprazole 40 Mg Inj IV 40 mg BID PEPITO Administration Potassium Chloride 40 meq 10/14/20 08:26 Potassium Chloride 20 Meq Packet FEEDTUBE 10/14/20 10:00 ONCE NR Simple Syrup 15 ml 10/10/20 22:18 Simple Syrup 15 Ml FEEDTUBE PRN PRN Hypoglycemia Simple Syrup 30 ml 10/10/20 22:18 Simple Syrup 15 Ml FEEDTUBE PRN PRN Hypoglycemia Sodium Bicarbonate 325 mg 10/10/20 22:18 Sodium Bicarbonate 325 Mg Tab FEEDTUBE PRN PRN For Clogged Feeding Tube Sodium Chloride 10 ml 10/10/20 22:00 10/13/20 21:02 Sodium Chloride 0.9% 10 Ml Flush Syringe IV 10 ml BID PEPITO Administration Sodium Chloride 10 ml 10/10/20 21:51 Sodium Chloride 0.9% 10 Ml Flush Syringe IV PRN PRN LINE FLUSH
[2020-10-14] MEDS: DEXTROSE 5% IN WATER 1,000 ML IV SCH (09:46)
[2020-10-14] MEDS: HEPARIN 5,000 UNIT/1 ML VIAL SUB-Q SCH ×2 (09:47→21:16)
[2020-10-14] MEDS: levETIRAcetam 500 MG in DEXTROSE 5% IN WATER 100 ML IV SCH ×2 (09:48→19:03)
[2020-10-14] MEDS: PANTOPRAZOLE 40 MG INJ IV SCH ×2 (09:50→21:06)
--- NOTE | 2020-10-14 10:14 | Electrocardiograph Report ---
[facility] Test Date: 2020-10-10 Test Time: 10:56:05 Pat Name: YESENIA EMNDES Department: Room: A255 1 Gender: M Flexo Operator: SALUD : 1965 Requested By: RILEY HOLMAN Order Number: [id number] Reading MD: Faizan Vila Measurements Intervals [place] Rate: 114 P: -66 NH: 189 QRS: -32 QRSD: 89 T: 66 QT: 337 QTc: 459 Interpretive Statements Sinus or multifocal atrial tachycardia MULTIPLE ATRIAL PREMATURE COMPLEXES No previous ECG available for comparison Electronically Signed On 10-14-2020 10:13:32 EDT by Faizan Vila
--- NOTE | 2020-10-14 10:16 | Electrocardiograph Report ---
[facility] Test Date: 2020-10-10 Test Time: 16:54:29 Pat Name: YESENIA MENDES Department: Room: A255 1 Gender: M Surgical Assist: [id number] : 1965 Requested By: JOI TAMEZ Order Number: [id number] Reading MD: Faizan Vila Measurements Intervals [place] Rate: 110 P: -47 [place]: 130 QRS: -23 QRSD: 94 T: 135 QT: 344 QTc: 466 Interpretive Statements Sinus or mulifocal atrial tachycardia LVH with secondary repolarization abnormality Compared to ECG 10/10/2020 10:56:05 Early repolarization now present ST (T wave) deviation still present Electronically Signed On 10-14-2020 10:15:49 EDT by Faizan Vila
--- NOTE | 2020-10-14 10:17 | Progress Note ---
Assessment and Plan Cultures: SARS CoV2 PCR: negative. 10/10/2020 blood culture: No growth 10/10/2020 ET aspirate culture: no growth so far. 10/11/2020 urine culture: no growth A/P: 55-year-old male with hypertension, asthma, obesity came into the emergency room after receiving the Covid vaccine and passing out in the car at the emergency room bay. Patient was found to be unresponsive with no pulse, ACLS was initiated: #Sepsis, likely secondary to pneumonia. COVID negative. #Right-sided pneumonia: Possible aspiration during ACLS. Procalcitonin low. #Acute hypoxic respiratory failure: On mechanical ventilation. #MOE: Renally dose antibiotics. #Elevated LFTs: Likely from sepsis #Urine tox screen positive for THC #Possible sinusitis from endotracheal intubation and mechanical ventilation: Initial CT head did not reveal any evidence of sinusitis. Patient is already on antibiotics. #Acute encephalopathy: neurology on board, evaluation in process. Recs: -Rechecking procalcitonin for a.m. -Continue cefepime and azithromycin for now, plan to stop abx in 1-2 days Jose Marquez MD, FACP [facility] O: [phone] F: [phone] Subjective Date of service: 10/14/20 Principal diagnosis: Cardiac arrest; Septic Shock; Ac. hypoxemic & hypercapnic resp failure; MOE Interval history: Low-grade fever. Remains on the vent. Having some mucopurulent drainage from right nostril Objective - Exam Narrative Exam: Physical Exam: Constitutional: sedated, intubated, on the vent Head, Ears, Nose: Normocephalic, atraumatic. External ears, nose normal. Mucop urulent drainage from R nostril Eyes: Conjunctivae/corneas clear. No icterus. No ptosis. Neck: intubated Oral: intubated Cardiovascular: S1, S2 + Respiratory: AE fair bilaterally and equal GI: Soft, bowel sounds + Musculoskeletal:no edema Skin: No rash or abscess Hem/Lymphatic: No palpable cervical or supraclavicular nodes. No lymphangitis Psych: no agitation Neurological: sedated, intubated, on the vent, exam limited - Constitutional Vitals: Vital Signs Temp Pulse Resp BP Pulse Ox 99.4 F 88 23 143/88 97 04/02/21 08:00 10/14/20 10:00 10/14/20 10:00 10/14/20 10:00 10/14/20 10:00 Temperature -Last 24 Hours Temperature 99.4 F Temperature 99.3 F Temperature 100.5 F Temperature 100.2 F Temperature 99 F Temperature 98.4 F - Labs CBC & Chem 7: 10/14/20 04:46 10/14/20 04:46 Labs: Abnormal lab results 10/13/20 10/13/20 10/14/20 Range/Units 11:37 17:50 03:45 WBC (4.5-11.0) K/mm3 RDW (13.2-15.2) % POC ABG pCO2 59.6 H (32.0-48.0) mmHg ABG Sodium 151.4 H (136.0-145.0) mmol/L ABG Potassium 3.3 L (3.40-4.50) mmol/L ABG Glucose 138 H (65-95) mg/dL Carboxyhemoglobin 1.6 H (0.5-1.5) Sodium (137-145) mmol/L Potassium (3.6-5.0) mmol/L Carbon Dioxide (22-30) mmol/L BUN (9-20) mg/dL Creatinine (0.8-1.3) mg/dL Glucose (75-100) mg/dL POC Glucose 116 H 140 H (70-105) mg/dL Arterial Blood Glucose 138 H (65-95) mg/dL Arterial Blood Ionized Calcium 4.5 L (4.6-5.3) mg/dL 10/14/20 10/14/20 10/14/20 Range/Units 04:46 04:46 05:10 WBC 11.1 H (4.5-11.0) K/mm3 RDW 15.3 H (13.2-15.2) % POC ABG pCO2 (32.0-48.0) mmHg ABG Sodium (136.0-145.0) mmol/L ABG Potassium (3.40-4.50) mmol/L ABG Glucose (65-95) mg/dL Carboxyhemoglobin (0.5-1.5) Sodium 152 H (137-145) mmol/L Potassium 3.5 L (3.6-5.0) mmol/L Carbon Dioxide 38 H D (22-30) mmol/L BUN 46 H (9-20) mg/dL Creatinine 2.3 H (0.8-1.3) mg/dL Glucose 127 H (75-100) mg/dL POC Glucose 116 H (70-105) mg/dL Arterial Blood Glucose (65-95) mg/dL Arterial Blood Ionized Calcium (4.6-5.3) mg/dL
--- NOTE | 2020-10-14 10:34 | Electrocardiograph Report ---
[facility] Test Date: 2020-10-12 Test Time: 07:22:30 Pat Name: YESENIA MENDES Department: Room: A255 1 Gender: M Balloon Pilot: SIS : 1965 Requested By: JAZZY CAREY Order Number: [id number] Reading MD: Faizan Vila Measurements Intervals [place] Rate: 68 P: 42 WI: 167 QRS: 1 QRSD: 94 T: 153 QT: 534 QTc: 548 Interpretive Statements Sinus rhythm Atrial premature complexes Abnrm T, probable ischemia, anterolateral lds Prolonged QT interval Compared to ECG 10/10/2020 16:54:29 Atrial premature complex(es) now present Possible ischemia now present Prolonged QT interval now present Electronically Signed On 10-14-2020 10:34:24 EDT by Faizan Vila
[2020-10-14] MEDS: CHLOROTHIAZIDE 500 MG VIAL IV SCH (11:00)
--- NOTE | 2020-10-14 11:48 | Progress Note ---
Assessment and Plan pt remains intubated, not sedated, unresponsive. Neurology consultation noted - recommend MR Brain w/o contrast only when patient is clinically stable. tte reviewed - EF 55-60%, mod LVH, mild diastolic dysfunction. CE's trending downwards, CE elevation appears c/w NSTEMI type II. Cont IV hydralazine and lopressor until ok to resume enteral intake per GI team. Consider initiation of nitro gtt or cardene gtt if necessary for BP control. Cont volume and electrolyte optimization per nephrology. Pt is s/p lasix gtt. IV abx per ID team. Overall guarded prognosis. The patient has been seen in conjunction with Dr. Liz Steen who agrees with the assessment and plan of care. - Patient Problems (1) AMS (altered mental status) Current Visit: Yes Status: Acute (2) Cardiopulmonary arrest with successful resuscitation Current Visit: Yes Status: Acute (3) Acute respiratory failure Current Visit: Yes Status: Acute Qualifiers: Respiratory failure complication: hypoxia and hypercapnia Qualified Code(s): J96.01 - Acute respiratory failure with hypoxia; J96.02 - Acute respiratory failure with hypercapnia (4) Bilateral pneumonia Current Visit: Yes Status: Acute (5) Sepsis with hypotension Current Visit: Yes Status: Acute (6) Person under investigation for COVID-19 Current Visit: Yes Status: Ruled-out Plan to address problem: COVID-19 testing negative (7) Seizure Current Visit: Yes Status: Suspected (8) NSTEMI (non-ST elevated myocardial infarction) Current Visit: Yes Status: Acute Plan to address problem: suspect type II (9) MOE (acute kidney injury) Current Visit: Yes Status: Acute (10) GI bleed Current Visit: Yes Status: Acute (11) Acute heart failure with preserved ejection fraction (HFpEF) Current Visit: Yes Status: Acute (12) Hypernatremia Current Visit: Yes Status: Acute Subjective Date of service: 10/14/20 Principal diagnosis: Cardiac arrest; Septic Shock; Ac. hypoxemic & hypercapnic resp failure; MOE Interval history: pt remains intubated, unresponsive, not sedated. tele reviewed - in SR HR 90s. Objective Last Vital Signs Temp 99.4 F 10/14/20 08:00 Pulse 88 10/14/20 10:00 Resp 23 10/14/20 10:00 BP 143/88 10/14/20 10:00 Pulse Ox 97 10/14/20 10:00 - Physical Examination General: Other (intubated, unresponsive) HEENT: Positive: Other (Intubated and sedated) Neck: Positive: neck supple, trachea midline Cardiac: Positive: Reg Rate and Rhythm, S1/S2 Lungs: Positive: Decreased Breath Sounds, Oxygen, Ventilated Respirations Neuro: Positive: Other (intubated, unresponsive) Abdomen: Positive: Active Bowel Sounds Skin: Negative: Rash Extremities: Present: upper extr. pulses, lower extr. pulses, edema - Labs and Meds CBC 10/14/20 Range/Units 04:46 WBC 11.1 H (4.5-11.0) K/mm3 RBC 4.12 (3.65-5.03) M/mm3 Hgb 12.1 (11.8-15.2) gm/dl Hct 37.5 (35.5-45.6) % Plt Count 153 (140-440) K/mm3 Comprehensive Metabolic Panel 10/14/20 Range/Units 04:46 Sodium 152 H (137-145) mmol/L Potassium 3.5 L (3.6-5.0) mmol/L Chloride 105.8 (98-107) mmol/L Carbon Dioxide 38 H D (22-30) mmol/L BUN 46 H (9-20) mg/dL Creatinine 2.3 H (0.8-1.3) mg/dL Glucose 127 H (75-100) mg/dL Calcium 8.5 (8.4-10.2) mg/dL - Imaging and Cardiology EKG: report reviewed, image reviewed Echo: report reviewed (EF 55-60%, mod LVH, mild diastolic dysfunction.) - Telemetry EKG Rhythm: Sinus Rhythm - EKG Sinus rhythms and dysrhythmias: sinus rhythm - Allied health notes Allied health notes reviewed: nursing
[2020-10-14] MEDS ORDERED: WATER FOR INJ Sterile (PF) 10 ML ONE ×2 (12:26→12:33)
--- NOTE | 2020-10-14 12:32 | Progress Note ---
Assessment and Plan Cardiac arrest x3 with ROSC Severe septic and cardiogenic shock Acute respiratory failure with hypoxemia and hypercarbia Acute pulmonary edema MOE (acute kidney injury) Lactic acidosis, severe metabolic acidosis Bilateral pneumonia, aspiration pneumonia Elevated troponins - continue to hold on full anticoagulation re: negative Dopplers and clinical improvement in oxygenation - begin Clonidine 0.3 mg weekly patch - hold sheduled IV hydralazine for SBP < 160 mmHg - follow G.I. evaluation - get MRI brain as per neurology recommendations - reduce set rate on MVS to 12/min - reduce peep to 8 cm H2O - continue care as below otherwise; - de-escalate empiric anti-infective's per ID rec's (on Cefepime & Azithromycin) - follow clinically re: fevers / WBC - IV heparin for elevated troponins with possible NSTEMI. (on hold now re: ? G.I. Bleed) - Monitor hemodynamics closely - daily SAT's and SBT assessment as tolerated - wean supplemental oxygen for target O2 sat's > 92% acutely - VAP bundle addressed - continue lung protective strategies - bronchodilators with pulmonary hygiene per RT - wean per pulmonary driven protocols otherwise - Monitor urine output closely - bicarbonate infusion - avoid nephrotoxins, renally dose all medications - continue to avoid benzodiazepine's, reduce the possibility of delirium - continue Scopolamine for secretion control - continue wound care per RN/WCN - prn analgesia per CPOT score - Maintenance of sleep-wake cycle, avoid delirium - continue enteral nutritional support at goal rate as tolerated - G.I. & VTE prophylaxis - PT/OT/ROM exercises - continue mobility protocols for pressure ulcer prophylaxis - Monitor hemodynamics closely - continue other care per attending / other consultants - discharge planning ongoing concurrently .... Re-evaluate in am & prn CONDITION: CRITICAL PROGNOSIS: GUARDED CODE STATUS: FULL CODE The high probability of a clinically significant, sudden or life-threatening deterioration of the [respiratory, cardiovascular & neurologic] system(s) required my full and direct attention, intervention and personal management. The aggregate critical care time was [6] minutes without overlap. Time includes spent on; [x] Data Review and interpretation [x] Patient assessment and monitoring of vital signs [x] Documentation [x] Medication orders and management Subjective Date of service: 10/14/20 Principal diagnosis: Cardiac arrest; Septic Shock; Ac. hypoxemic & hypercapnic resp failure; MOE Interval history: Patient is seen today for: Cardiac arrest with ROSC; Severe septic and cardiogenic shock; Acute respiratory failure with hypoxemia and hypercarbia; Acute pulmonary edema; MOE; Lactic acidosis; severe metabolic acidosis; Bilateral pneumonia; aspiration pneumonia; Elevated troponins Seen and examined at bedside; 24hour events reviewed; nursing and respiratory care staff consulted; no adverse overnight events reported to me; resting peacefully in bed; AMS is persistent; still with significant gastric effluent and remains NPO; BP's running high all morning despite scheduled IV hydralazine; no new issues otherwise. Objective Vital Signs - 12hr 10/14/20 10/14/20 10/14/20 00:45 01:00 01:15 Temperature Pulse Rate 89 87 89 Pulse Rate [ From Monitor] Respiratory Rate Blood Pressure 128/83 111/78 115/76 O2 Sat by Pulse 98 98 98 Oximetry 10/14/20 10/14/20 10/14/20 01:31 01:45 02:01 Temperature Pulse Rate 87 89 89 Pulse Rate [ From Monitor] Respiratory Rate Blood Pressure 154/84 154/78 151/71 O2 Sat by Pulse 98 98 97 Oximetry 10/14/20 10/14/20 10/14/20 02:15 02:30 02:45 Temperature Pulse Rate 88 88 90 Pulse Rate [ From Monitor] Respiratory Rate Blood Pressure 181/95 162/80 164/80 O2 Sat by Pulse 98 98 98 Oximetry 10/14/20 10/14/20 10/14/20 03:00 03:15 03:31 Temperature Pulse Rate 88 91 H 91 H Pulse Rate [ From Monitor] Respiratory Rate Blood Pressure 151/77 134/83 117/90 O2 Sat by Pulse 98 99 98 Oximetry 10/14/20 10/14/20 10/14/20 03:39 03:45 04:00 Temperature 99.3 F Pulse Rate 90 86 Pulse Rate [ 89 From Monitor] Respiratory 25 H Rate Blood Pressure 151/77 125/89 O2 Sat by Pulse 98 98 Oximetry 10/14/20 10/14/20 10/14/20 04:05 04:15 04:30 Temperature Pulse Rate 86 87 86 Pulse Rate [ From Monitor] Respiratory Rate Blood Pressure 156/87 150/90 156/87 O2 Sat by Pulse 98 98 98 Oximetry 10/14/20 10/14/20 10/14/20 04:45 05:01 05:15 Temperature Pulse Rate 94 H 88 86 Pulse Rate [ From Monitor] Respiratory Rate Blood Pressure 180/90 190/89 171/94 O2 Sat by Pulse 98 97 98 Oximetry 10/14/20 10/14/20 10/14/20 05:30 05:45 05:50 Temperature Pulse Rate 91 H 88 80 Pulse Rate [ From Monitor] Respiratory Rate Blood Pressure 180/99 176/90 176/90 O2 Sat by Pulse 98 98 Oximetry 10/14/20 10/14/20 10/14/20 06:00 06:15 06:31 Temperature Pulse Rate 89 83 88 Pulse Rate [ From Monitor] Respiratory 24 27 H 27 H Rate Blood Pressure 159/76 155/69 156/68 O2 Sat by Pulse 98 98 98 Oximetry 10/14/20 10/14/20 10/14/20 06:45 07:01 07:15 Temperature Pulse Rate 92 H 95 H 82 Pulse Rate [ From Monitor] Respiratory 22 23 22 Rate Blood Pressure 157/78 166/71 149/80 O2 Sat by Pulse 98 98 98 Oximetry 10/14/20 10/14/20 10/14/20 07:30 07:45 08:00 Temperature 99.4 F Pulse Rate 91 H 80 89 Pulse Rate [ From Monitor] Respiratory 23 23 Rate Blood Pressure 138/80 151/73 159/78 O2 Sat by Pulse 97 96 98 Oximetry 10/14/20 10/14/20 10/14/20 08:01 08:15 08:31 Temperature Pulse Rate 88 83 88 Pulse Rate [ From Monitor] Respiratory 24 24 24 Rate Blood Pressure 147/75 141/84 154/72 O2 Sat by Pulse 97 98 97 Oximetry 10/14/20 10/14/20 10/14/20 08:45 09:01 09:15 Temperature Pulse Rate 92 H 88 89 Pulse Rate [ From Monitor] Respiratory 25 H 25 H 29 H Rate Blood Pressure 154/72 180/81 180/81 O2 Sat by Pulse 98 98 99 Oximetry 10/14/20 10/14/20 10/14/20 09:31 09:45 10:00 Temperature Pulse Rate 88 89 88 Pulse Rate [ From Monitor] Respiratory 27 H 25 H 23 Rate Blood Pressure 212/96 161/84 143/88 O2 Sat by Pulse 98 97 97 Oximetry 10/14/20 12:09 Temperature Pulse Rate 75 Pulse Rate [ From Monitor] Respiratory Rate Blood Pressure 192/87 O2 Sat by Pulse 98 Oximetry Constitutional: appears uncomfortable, other (middle aged obese male with mildly increased respiratory efort at rest) Eyes: non-icteric ENT: oropharynx moist, oropharyngeal exudate pre, other (ETT 23 cm ANNIE) Neck: supple, no lymphadenopathy, no JVD Effort: mildly labored Ascultation: Bilateral: diminished breath sounds, rhonchi (scant) Percussion: Bilateral: not dull Cardiovascular: regular rate and rhythm Gastrointestinal: normoactive bowel sounds, soft, non-tender, non-distended (protuberant) Integumentary: normal Extremities: no cyanosis, no edema, pulses normal, no ischemia or petechiae Neurologic: pupils equal and round, unable to assess Psychiatric: other (unable to assess re: AMS) CBC and BMP: 10/14/20 04:46 10/14/20 04:46 ABG, PT/INR, D-dimer: ABG ABG pH 7.448 (7.320-7.450) 10/14/20 03:45 POC ABG pCO2 59.6 mmHg (32.0-48.0) H 10/14/20 03:45 ABG pCO2 75.3 mm Hg 10/10/20 15:50 POC ABG pO2 93.3 mmHg (83-108) 10/14/20 03:45 ABG pO2 60.3 mm Hg (80.0-90.0) L 10/10/20 15:50 POC ABG HCO3 40.3 10/14/20 03:45 ABG O2 Saturation 97.4 (0-100) 10/14/20 03:45 PT/INR, D-dimer PT 13.8 Sec. (12.2-14.9) 10/10/20 18:18 INR 1.07 (0.87-1.13) 10/10/20 18:18 D-Dimer 679.5 ng/mlDDU (0-234) H 10/10/20 10:48 Abnormal lab findings: Abnormal Labs 10/10/20 10/10/20 10/10/20 10:46 10:46 10:46 WBC RBC Hgb Hct RDW Lymph % (Auto) Lymph # (Auto) Seg Neutrophils % Lymphocytes % (Manual) Monocytes % (Manual) Seg Neutrophils # Seg Neutrophils # Man Lymphocytes # (Manual) Monocytes # (Manual) D-Dimer Heparin Anti-Xa Level ABG pH POC ABG pCO2 POC ABG pO2 ABG pO2 ABG HCO3 ABG O2 Saturation ABG Oxyhemoglobin ABG Sodium ABG Potassium ABG Chloride ABG Glucose VBG pH Oxyhemoglobin Carboxyhemoglobin Sodium Potassium Chloride Carbon Dioxide BUN Creatinine Glucose POC Glucose Lactic Acid 13.60 H* Calcium Magnesium AST ALT Ammonia 214.0 H Lactate Dehydrogenase Total Creatine Kinase CK-MB (CK-2) Troponin T NT-Pro-B Natriuret Pep Total Protein Albumin Triglycerides TSH 6.260 H Arterial Blood Glucose Arterial Blood Ionized Calcium Urine pH Urine WBC (Auto) Urine Creatinine 10/10/20 10/10/20 10/10/20 10:46 10:48 10:48 WBC RBC 5.28 H Hgb 15.5 H Hct 48.8 H RDW Lymph % (Auto) Lymph # (Auto) Seg Neutrophils % Lymphocytes % (Manual) 42.0 H Monocytes % (Manual) Seg Neutrophils # Seg Neutrophils # Man Lymphocytes # (Manual) Monocytes # (Manual) D-Dimer Heparin Anti-Xa Level ABG pH POC ABG pCO2 POC ABG pO2 ABG pO2 ABG HCO3 ABG O2 Saturation ABG Oxyhemoglobin ABG Sodium ABG Potassium ABG Chloride ABG Glucose VBG pH Oxyhemoglobin Carboxyhemoglobin Sodium Potassium 3.3 L Chloride 91.2 L Carbon Dioxide BUN Creatinine 1.8 H Glucose 231 H POC Glucose Lactic Acid Calcium Magnesium AST 60 H ALT 57 H Ammonia Lactate Dehydrogenase Total Creatine Kinase CK-MB (CK-2) Troponin T NT-Pro-B Natriuret Pep 1187 H Total Protein 9.0 H Albumin Triglycerides TSH Arterial Blood Glucose Arterial Blood Ionized Calcium Urine pH Urine WBC (Auto) Urine Creatinine 10/10/20 10/10/20 10/10/20 10:48 10:48 10:48 WBC RBC Hgb Hct RDW Lymph % (Auto) Lymph # (Auto) Seg Neutrophils % Lymphocytes % (Manual) Monocytes % (Manual) Seg Neutrophils # Seg Neutrophils # Man Lymphocytes # (Manual) Monocytes # (Manual) D-Dimer 679.5 H Heparin Anti-Xa Level ABG pH POC ABG pCO2 POC ABG pO2 ABG pO2 ABG HCO3 ABG O2 Saturation ABG Oxyhemoglobin ABG Sodium ABG Potassium ABG Chloride ABG Glucose VBG pH 6.870 L* Oxyhemoglobin Carboxyhemoglobin Sodium Potassium Chloride Carbon Dioxide BUN Creatinine Glucose POC Glucose Lactic Acid Calcium Magnesium AST ALT Ammonia Lactate Dehydrogenase 386 H Total Creatine Kinase CK-MB (CK-2) Troponin T NT-Pro-B Natriuret Pep Total Protein Albumin Triglycerides TSH Arterial Blood Glucose Arterial Blood Ionized Calcium Urine pH Urine WBC (Auto) Urine Creatinine 10/10/20 10/10/20 10/10/20 14:10 14:20 15:50 WBC RBC Hgb Hct RDW Lymph % (Auto) Lymph # (Auto) Seg Neutrophils % Lymphocytes % (Manual) Monocytes % (Manual) Seg Neutrophils # Seg Neutrophils # Man Lymphocytes # (Manual) Monocytes # (Manual) D-Dimer Heparin Anti-Xa Level ABG pH 7.175 L 7.247 L POC ABG pCO2 85.0 H POC ABG pO2 43.7 L ABG pO2 60.3 L ABG HCO3 32.0 H ABG O2 Saturation 86.1 L ABG Oxyhemoglobin 67.7 L ABG Sodium ABG Potassium ABG Chloride ABG Glucose 247 H VBG pH Oxyhemoglobin 84.4 L Carboxyhemoglobin Sodium Potassium Chloride Carbon Dioxide BUN Creatinine Glucose POC Glucose Lactic Acid 4.00 H* Calcium Magnesium AST ALT Ammonia Lactate Dehydrogenase Total Creatine Kinase CK-MB (CK-2) Troponin T NT-Pro-B Natriuret Pep Total Protein Albumin Triglycerides TSH Arterial Blood Glucose 247 H Arterial Blood Ionized Calcium 4.4 L Urine pH Urine WBC (Auto) Urine Creatinine 10/10/20 10/10/20 10/10/20 15:50 16:22 18:18 WBC RBC Hgb Hct RDW Lymph % (Auto) Lymph # (Auto) Seg Neutrophils % Lymphocytes % (Manual) Monocytes % (Manual) Seg Neutrophils # Seg Neutrophils # Man Lymphocytes # (Manual) Monocytes # (Manual) D-Dimer Heparin Anti-Xa Level ABG pH 7.171 L POC ABG pCO2 96.6 H POC ABG pO2 55.3 L ABG pO2 ABG HCO3 ABG O2 Saturation ABG Oxyhemoglobin 81.4 L ABG Sodium ABG Potassium ABG Chloride ABG Glucose 115 H VBG pH Oxyhemoglobin Carboxyhemoglobin Sodium Potassium Chloride Carbon Dioxide BUN Creatinine Glucose POC Glucose 132 H Lactic Acid Calcium Magnesium AST ALT Ammonia Lactate Dehydrogenase Total Creatine Kinase 1192 H CK-MB (CK-2) 21.7 H Troponin T 0.377 H* D NT-Pro-B Natriuret Pep Total Protein Albumin Triglycerides TSH Arterial Blood Glucose 115 H Arterial Blood Ionized Calcium Urine pH Urine WBC (Auto) Urine Creatinine 10/10/20 10/10/20 10/10/20 18:18 18:18 22:49 WBC 23.0 H RBC 5.12 H Hgb Hct RDW Lymph % (Auto) Lymph # (Auto) Seg Neutrophils % Lymphocytes % (Manual) 4.0 L Monocytes % (Manual) 9.0 H Seg Neutrophils # Seg Neutrophils # Man 13.8 H Lymphocytes # (Manual) 0.9 L Monocytes # (Manual) 2.1 H D-Dimer Heparin Anti-Xa Level ABG pH POC ABG pCO2 POC ABG pO2 ABG pO2 ABG HCO3 ABG O2 Saturation ABG Oxyhemoglobin ABG Sodium ABG Potassium ABG Chloride ABG Glucose VBG pH Oxyhemoglobin Carboxyhemoglobin Sodium 146 H Potassium Chloride Carbon Dioxide 34 H D BUN 27 H Creatinine 2.7 H Glucose 102 H POC Glucose Lactic Acid Calcium Magnesium AST 90 H ALT 66 H Ammonia Lactate Dehydrogenase Total Creatine Kinase CK-MB (CK-2) Troponin T 0.273 H* D NT-Pro-B Natriuret Pep Total Protein Albumin Triglycerides TSH Arterial Blood Glucose Arterial Blood Ionized Calcium Urine pH Urine WBC (Auto) Urine Creatinine 10/11/20 10/11/20 10/11/20 02:00 02:00 02:00 WBC 17.3 H RBC Hgb Hct RDW Lymph % (Auto) 3.9 L Lymph # (Auto) 0.7 L Seg Neutrophils % 93.0 H Lymphocytes % (Manual) Monocytes % (Manual) Seg Neutrophils # 16.1 H Seg Neutrophils # Man Lymphocytes # (Manual) Monocytes # (Manual) D-Dimer Heparin Anti-Xa Level ABG pH POC ABG pCO2 POC ABG pO2 ABG pO2 ABG HCO3 ABG O2 Saturation ABG Oxyhemoglobin ABG Sodium ABG Potassium ABG Chloride ABG Glucose VBG pH Oxyhemoglobin Carboxyhemoglobin Sodium 149 H Potassium 3.3 L Chloride 95.3 L Carbon Dioxide 37 H BUN 29 H Creatinine 2.6 H Glucose POC Glucose Lactic Acid Calcium Magnesium AST 80 H ALT 59 H Ammonia Lactate Dehydrogenase Total Creatine Kinase CK-MB (CK-2) Troponin T 0.201 H* D NT-Pro-B Natriuret Pep Total Protein Albumin 3.6 L Triglycerides TSH Arterial Blood Glucose Arterial Blood Ionized Calcium Urine pH Urine WBC (Auto) Urine Creatinine 0310/11/20 10/11/20 03:51 08:35 11:15 WBC RBC Hgb Hct RDW Lymph % (Auto) Lymph # (Auto) Seg Neutrophils % Lymphocytes % (Manual) Monocytes % (Manual) Seg Neutrophils # Seg Neutrophils # Man Lymphocytes # (Manual) Monocytes # (Manual) D-Dimer Heparin Anti-Xa Level 0.22 L ABG pH 7.491 H POC ABG pCO2 57.6 H POC ABG pO2 ABG pO2 ABG HCO3 ABG O2 Saturation ABG Oxyhemoglobin ABG Sodium 150.0 H ABG Potassium 3.1 L ABG Chloride 96.0 L ABG Glucose 122 H VBG pH Oxyhemoglobin Carboxyhemoglobin Sodium Potassium Chloride Carbon Dioxide BUN Creatinine Glucose POC Glucose 151 H Lactic Acid Calcium Magnesium AST ALT Ammonia Lactate Dehydrogenase Total Creatine Kinase CK-MB (CK-2) Troponin T NT-Pro-B Natriuret Pep Total Protein Albumin Triglycerides TSH Arterial Blood Glucose 122 H Arterial Blood Ionized Calcium 3.9 L Urine pH Urine WBC (Auto) Urine Creatinine 10/11/20 10/11/20 10/11/20 13:30 13:30 13:30 WBC 15.0 H RBC Hgb Hct RDW Lymph % (Auto) Lymph # (Auto) Seg Neutrophils % Lymphocytes % (Manual) Monocytes % (Manual) Seg Neutrophils # Seg Neutrophils # Man Lymphocytes # (Manual) Monocytes # (Manual) D-Dimer Heparin Anti-Xa Level ABG pH POC ABG pCO2 POC ABG pO2 ABG pO2 ABG HCO3 ABG O2 Saturation ABG Oxyhemoglobin ABG Sodium ABG Potassium ABG Chloride ABG Glucose VBG pH Oxyhemoglobin Carboxyhemoglobin Sodium Potassium Chloride Carbon Dioxide BUN Creatinine Glucose POC Glucose Lactic Acid Calcium Magnesium AST ALT Ammonia Lactate Dehydrogenase Total Creatine Kinase CK-MB (CK-2) Troponin T NT-Pro-B Natriuret Pep Total Protein Albumin Triglycerides TSH Arterial Blood Glucose Arterial Blood Ionized Calcium Urine pH 9.0 H Urine WBC (Auto) 18.0 H Urine Creatinine 80.5 H 10/11/20 10/11/20 10/12/20 17:17 23:14 03:53 WBC RBC Hgb Hct RDW Lymph % (Auto) Lymph # (Auto) Seg Neutrophils % Lymphocytes % (Manual) Monocytes % (Manual) Seg Neutrophils # Seg Neutrophils # Man Lymphocytes # (Manual) Monocytes # (Manual) D-Dimer Heparin Anti-Xa Level ABG pH 7.545 H POC ABG pCO2 54.6 H POC ABG pO2 231.9 H ABG pO2 ABG HCO3 ABG O2 Saturation ABG Oxyhemoglobin 98.5 H ABG Sodium 150.5 H ABG Potassium 3.2 L ABG Chloride 96.0 L ABG Glucose 148 H VBG pH Oxyhemoglobin Carboxyhemoglobin Sodium Potassium Chloride Carbon Dioxide BUN Creatinine Glucose POC Glucose 121 H 135 H Lactic Acid Calcium Magnesium AST ALT Ammonia Lactate Dehydrogenase Total Creatine Kinase CK-MB (CK-2) Troponin T NT-Pro-B Natriuret Pep Total Protein Albumin Triglycerides TSH Arterial Blood Glucose 148 H Arterial Blood Ionized Calcium 3.8 L Urine pH Urine WBC (Auto) Urine Creatinine 10/12/20 10/12/20 10/12/20 04:00 05:10 05:12 WBC 14.3 H RBC Hgb 11.6 L Hct 35.2 L RDW Lymph % (Auto) Lymph # (Auto) Seg Neutrophils % Lymphocytes % (Manual) Monocytes % (Manual) Seg Neutrophils # Seg Neutrophils # Man Lymphocytes # (Manual) Monocytes # (Manual) D-Dimer Heparin Anti-Xa Level ABG pH POC ABG pCO2 POC ABG pO2 ABG pO2 ABG HCO3 ABG O2 Saturation ABG Oxyhemoglobin ABG Sodium ABG Potassium ABG Chloride ABG Glucose VBG pH Oxyhemoglobin Carboxyhemoglobin Sodium 155 H Potassium 3.3 L Chloride 97.9 L Carbon Dioxide 47 H* D BUN 50 H Creatinine 3.4 H Glucose 146 H POC Glucose 137 H Lactic Acid Calcium 8.0 L Magnesium AST ALT Ammonia Lactate Dehydrogenase Total Creatine Kinase CK-MB (CK-2) Troponin T 0.125 H* D NT-Pro-B Natriuret Pep Total Protein Albumin Triglycerides TSH Arterial Blood Glucose Arterial Blood Ionized Calcium Urine pH Urine WBC (Auto) Urine Creatinine 10/12/20 10/12/20 10/12/20 11:39 16:01 19:49 WBC RBC Hgb Hct RDW Lymph % (Auto) Lymph # (Auto) Seg Neutrophils % Lymphocytes % (Manual) Monocytes % (Manual) Seg Neutrophils # Seg Neutrophils # Man Lymphocytes # (Manual) Monocytes # (Manual) D-Dimer Heparin Anti-Xa Level ABG pH POC ABG pCO2 POC ABG pO2 ABG pO2 ABG HCO3 ABG O2 Saturation ABG Oxyhemoglobin ABG Sodium ABG Potassium ABG Chloride ABG Glucose VBG pH Oxyhemoglobin Carboxyhemoglobin Sodium 157 H Potassium 3.3 L Chloride Carbon Dioxide 47 H* BUN 52 H Creatinine 3.0 H Glucose 137 H POC Glucose 138 H 119 H Lactic Acid Calcium 8.0 L Magnesium AST ALT Ammonia Lactate Dehydrogenase Total Creatine Kinase CK-MB (CK-2) Troponin T NT-Pro-B Natriuret Pep Total Protein Albumin Triglycerides TSH Arterial Blood Glucose Arterial Blood Ionized Calcium Urine pH Urine WBC (Auto) Urine Creatinine 10/12/20 10/13/20 10/13/20 23:37 02:28 04:52 WBC RBC Hgb Hct RDW Lymph % (Auto) Lymph # (Auto) Seg Neutrophils % Lymphocytes % (Manual) Monocytes % (Manual) Seg Neutrophils # Seg Neutrophils # Man Lymphocytes # (Manual) Monocytes # (Manual) D-Dimer Heparin Anti-Xa Level ABG pH 7.485 H POC ABG pCO2 57.1 H POC ABG pO2 ABG pO2 ABG HCO3 ABG O2 Saturation ABG Oxyhemoglobin ABG Sodium 152.4 H ABG Potassium ABG Chloride ABG Glucose 129 H VBG pH Oxyhemoglobin Carboxyhemoglobin Sodium 155 H Potassium Chloride Carbon Dioxide 45 H* BUN 52 H Creatinine 2.7 H Glucose 121 H POC Glucose 131 H Lactic Acid Calcium Magnesium 2.40 H AST ALT Ammonia Lactate Dehydrogenase Total Creatine Kinase CK-MB (CK-2) Troponin T NT-Pro-B Natriuret Pep Total Protein Albumin Triglycerides 278 H TSH Arterial Blood Glucose 129 H Arterial Blood Ionized Calcium 4.1 L Urine pH Urine WBC (Auto) Urine Creatinine 10/13/20 10/13/20 10/13/20 04:52 05:13 11:37 WBC 14.7 H RBC Hgb 11.7 L Hct RDW 15.8 H Lymph % (Auto) Lymph # (Auto) Seg Neutrophils % Lymphocytes % (Manual) Monocytes % (Manual) Seg Neutrophils # Seg Neutrophils # Man Lymphocytes # (Manual) Monocytes # (Manual) D-Dimer Heparin Anti-Xa Level ABG pH POC ABG pCO2 POC ABG pO2 ABG pO2 ABG HCO3 ABG O2 Saturation ABG Oxyhemoglobin ABG Sodium ABG Potassium ABG Chloride ABG Glucose VBG pH Oxyhemoglobin Carboxyhemoglobin Sodium Potassium Chloride Carbon Dioxide BUN Creatinine Glucose POC Glucose 116 H 116 H Lactic Acid Calcium Magnesium AST ALT Ammonia Lactate Dehydrogenase Total Creatine Kinase CK-MB (CK-2) Troponin T NT-Pro-B Natriuret Pep Total Protein Albumin Triglycerides TSH Arterial Blood Glucose Arterial Blood Ionized Calcium Urine pH Urine WBC (Auto) Urine Creatinine 10/13/20 10/14/20 10/14/20 17:50 03:45 04:46 WBC 11.1 H RBC Hgb Hct RDW 15.3 H Lymph % (Auto) Lymph # (Auto) Seg Neutrophils % Lymphocytes % (Manual) Monocytes % (Manual) Seg Neutrophils # Seg Neutrophils # Man Lymphocytes # (Manual) Monocytes # (Manual) D-Dimer Heparin Anti-Xa Level ABG pH POC ABG pCO2 59.6 H POC ABG pO2 ABG pO2 ABG HCO3 ABG O2 Saturation ABG Oxyhemoglobin ABG Sodium 151.4 H ABG Potassium 3.3 L ABG Chloride ABG Glucose 138 H VBG pH Oxyhemoglobin Carboxyhemoglobin 1.6 H Sodium Potassium Chloride Carbon Dioxide BUN Creatinine Glucose POC Glucose 140 H Lactic Acid Calcium Magnesium AST ALT Ammonia Lactate Dehydrogenase Total Creatine Kinase CK-MB (CK-2) Troponin T NT-Pro-B Natriuret Pep Total Protein Albumin Triglycerides TSH Arterial Blood Glucose 138 H Arterial Blood Ionized Calcium 4.5 L Urine pH Urine WBC (Auto) Urine Creatinine 10/14/20 10/14/20 04:46 05:10 WBC RBC Hgb Hct RDW Lymph % (Auto) Lymph # (Auto) Seg Neutrophils % Lymphocytes % (Manual) Monocytes % (Manual) Seg Neutrophils # Seg Neutrophils # Man Lymphocytes # (Manual) Monocytes # (Manual) D-Dimer Heparin Anti-Xa Level ABG pH POC ABG pCO2 POC ABG pO2 ABG pO2 ABG HCO3 ABG O2 Saturation ABG Oxyhemoglobin ABG Sodium ABG Potassium ABG Chloride ABG Glucose VBG pH Oxyhemoglobin Carboxyhemoglobin Sodium 152 H Potassium 3.5 L Chloride Carbon Dioxide 38 H D BUN 46 H Creatinine 2.3 H Glucose 127 H POC Glucose 116 H Lactic Acid Calcium Magnesium AST ALT Ammonia Lactate Dehydrogenase Total Creatine Kinase CK-MB (CK-2) Troponin T NT-Pro-B Natriuret Pep Total Protein Albumin Triglycerides TSH Arterial Blood Glucose Arterial Blood Ionized Calcium Urine pH Urine WBC (Auto) Urine Creatinine Chest x-ray: image reviewed (no new infilktrate) Allied health notes reviewed: nursing
[2020-10-14] MEDS: AZITHROMYCIN/NS 500 MG/250 ML 500 MG/250 ML BAG IV SCH (14:36)
--- NOTE | 2020-10-14 15:23 | Gastroenterology Progress Note ---
Assessment and Plan - Patient Problems (1) GI bleed Current Visit: Yes Status: Acute Plan to address problem: # Bloody output via OG tube - was on heparin drip after cardiac arrest on arrival to the ED. - heparin drip has been held - H/H slow down trend to 11 and stable since 10/12/2020. - OG tube output with more green bilious output. No BM per nursing. - possible upper GI bleed source with NG tube trauma, PUD, gastritis, esophagitis - no signs of active GI bleeding. Rec - cont with IV protonix - monitor H/H - given no signs of active GI bleeding, no contraindication for anticoagulation if otherwise indicated. - recommend CT abdomen given report of increased OG tube output. - can start tube feeds unless having high OG tube output. - hold off endoscopy unless active bleeding and more clinically stable. Patient with recent multiple cardiac arrests. - neurology consulted and recommendation for MRI brain when more stable. - will follow. Subjective Date of service: 10/14/20 Principal diagnosis: Cardiac arrest; Septic Shock; Ac. hypoxemic & hypercapnic resp failure; MOE Interval history: Green bilious fluid output from OG tube. No BM per nursing. Objective - Constitutional Vitals: Temp Pulse Resp BP Pulse Ox 99.3 F 89 23 178/86 98 10/14/20 12:00 10/14/20 13:30 10/14/20 10:00 10/14/20 13:30 10/14/20 12:09 General appearance: no acute distress - Respiratory Respiratory effort: other (intubated and on the vent) - Gastrointestinal General gastrointestinal: Present: soft, non-tender, non-distended - Integumentary Integumentary: Present: clear, warm - Labs CBC & Chem 7: 10/14/20 04:46 10/14/20 04:46 Labs: Laboratory Results - last 24 hr 10/13/20 10/13/20 10/14/20 17:50 23:27 03:45 WBC RBC Hgb Hct MCV MCH MCHC RDW Plt Count ABG pH 7.448 POC ABG pCO2 59.6 H POC ABG pO2 93.3 POC ABG HCO3 40.3 ABG O2 Saturation 97.4 POC ABG Base Excess 13.8 ABG Hemoglobin 12.7 ABG Oxyhemoglobin 95.8 ABG Methemoglobin 0 ABG Sodium 151.4 H ABG Potassium 3.3 L ABG Chloride 105.0 ABG Glucose 138 H Carboxyhemoglobin 1.6 H FiO2 % 40 Sodium Potassium Chloride Carbon Dioxide Anion Gap BUN Creatinine Estimated GFR BUN/Creatinine Ratio Glucose POC Glucose 140 H 105 Calcium Phosphorus Arterial Blood Glucose 138 H Arterial Blood Ionized Calcium 4.5 L 10/14/20 10/14/20 10/14/20 04:46 04:46 05:10 WBC 11.1 H RBC 4.12 Hgb 12.1 Hct 37.5 MCV 91 MCH 30 MCHC 32 RDW 15.3 H Plt Count 153 ABG pH POC ABG pCO2 POC ABG pO2 POC ABG HCO3 ABG O2 Saturation POC ABG Base Excess ABG Hemoglobin ABG Oxyhemoglobin ABG Methemoglobin ABG Sodium ABG Potassium ABG Chloride ABG Glucose Carboxyhemoglobin FiO2 % Sodium 152 H Potassium 3.5 L Chloride 105.8 Carbon Dioxide 38 H D Anion Gap 12 BUN 46 H Creatinine 2.3 H Estimated GFR 36 BUN/Creatinine Ratio 20 Glucose 127 H POC Glucose 116 H Calcium 8.5 Phosphorus 3.60 Arterial Blood Glucose Arterial Blood Ionized Calcium 10/14/20 11:11 WBC RBC Hgb Hct MCV MCH MCHC RDW Plt Count ABG pH POC ABG pCO2 POC ABG pO2 POC ABG HCO3 ABG O2 Saturation POC ABG Base Excess ABG Hemoglobin ABG Oxyhemoglobin ABG Methemoglobin ABG Sodium ABG Potassium ABG Chloride ABG Glucose Carboxyhemoglobin FiO2 % Sodium Potassium Chloride Carbon Dioxide Anion Gap BUN Creatinine Estimated GFR BUN/Creatinine Ratio Glucose POC Glucose 114 H Calcium Phosphorus Arterial Blood Glucose Arterial Blood Ionized Calcium
--- NOTE | 2020-10-14 15:42 | Progress Note ---
Assessment and Plan Assessment and plan: -CCM, cardiology, nephrology, infectious disease consulted, appreciate recommendations -Antibiotic therapy -BB and hydralazine IV, clonidine patch -Replete potassium -Trend CBC and BMP -Mechanical ventilation, wean as tolerated, VAP bundle -Renal US shows no hydronephrosis. -BLE Doppler US negative to DVT/SVT but shows bilateral popliteal cyst -MRI brain, CT abd w/o contrast pending -Nutrition consult for parenteral nutrition GI/DVT prophylaxis: SCDs to bilateral lower extremities while in bed, PPI, Heparin subq Dispo: ICU The high probability of a clinically significant, sudden or life threatening deterioration of the [multi] system(s) required my full and direct attention, intervention and personal management. The aggregate critical care time was [35] minutes. This time is in addition to time spent performing reported procedures but includes the following: [x] Data Review and interpretation [x] Patient assessment and monitoring of vital signs [x] Documentation [x] Medication orders and management History Interval history: This is a 55-year-old male with hypertension, asthma, obesity in the emergency by presents the emergency department on 10/10 after receiving a Covid vaccine being found unresponsive in his car in the emergency room by with no pulse and ACLS protocol was initiated from his car to emergency room #21 where it was c ontinued. Patient was intubated after ROSC was achieved and a central line was placed and the patient was initiated on pressors. In the emergency room patient seems to have seizure-like activity and then collapsed and was unresponsive with no palpable pulse and ACLS was again initiated patient with achievement of ROSC. Patient again coded with ACLS protocol in the CT room. Upon arrival to the ICU patient again coded and ROSC was achieved and he was placed on epinephrine, Lasix, heparin and sodium bicarbonate drip and sedated with propofol. An NG tube was placed, A-line was placed. Patient was admitted to the hospitalist service with consult to [facility], nephrology, infectious disease and cardiology. 10/11: Patient COVID-19 PCR is pending and he remains on mechanical ventilation, examination on assist control 400/30/12/0.95. Patient is scheduled for an echocardiogram and we will obtain bilateral lower extremity Doppler ultrasound given elevated D-dimer. Patient was supposed to have a CTA chest when he coded yesterday. We will begin trickle feeding. This morning patient was on a h eparin drip and was noted to have bloody drainage from his NG tube. Heparin drip was discontinued. 10/12: Patient remains on propofol and Lasix drip at the time my examination and he is on assist control 400/25/12/0.60. Patient is hypokalemic this morning which was repleted. Nephrlogy discontinued Lasix drip and Diamox. Patient is hypertensive and has been started on hydralazine and beta-shital IV. He has been titrated off his vasopressors since yesterday. Vancomycin discontinued. Patient is currently on cefepime and azithromycin. 10/13: Sedation vacation attempted today and patient was not responsive to verbal or painful stimuli, does not track or focus or follow commands. This morning the patient has some respiratory alkalosis on ABG, hypernatremia and metabolic alkalosis on BMP. His kidney functions has improved slightly. Patient still has leukocytosis and infectious disease was like to continue antibiotic therapy. GI evaluated the patient yesterday and started the patient on PPI does not plan to scope at this time. At the time my examination patient assist-control 400/20/12/0.40 and sedated on propofol at 20. 4/2: GI has recommended a CT abdomen since there is increased output from OG tube and an MRI brain without contrast has been ordered per neurology recommendations. EEG is pending and the patient has been started on Keppra per neurology.. Nutrition has been consulted for initiation of parenteral nutrition. Patient remains sedated with propofol and his hypernatremia, leukocytosis, acute kidney injury and metabolic alkalosis is improving. Patient has hypokalemia today which was repleted. At the time of my examination patient was on assist control 400/14/10/0.40 and [facility] has dropped his rate to 12 and PEEP to 8. We have labs ordered for a.m. He was given a clonidine patch given persistent hypertension and he remains on D5 water per nephrology. Sepsis Right-sided pneumonia NSTEMI type II Acute heart failure Hypokalemia GI bleed Leukocytosis Metabolic alkalosis Hypernatremia Acute hypoxic respiratory failure Acute kidney injury Transaminitis HTN Obesity Hospitalist Physical - Constitutional Vitals: Temp Pulse Resp BP Pulse Ox 99.3 F 90 26 H 183/86 98 10/14/20 12:00 10/14/20 15:15 10/14/20 15:15 10/14/20 15:15 10/14/20 15:15 General appearance: Present: no acute distress, other (intubated, sedated) - EENT Eyes: Present: PERRL - Neck Neck: Absent: masses or JVD, cervical LAD - Respiratory Respiratory effort: normal Respiratory: bilateral: rhonchi - Cardiovascular Rhythm: regular Heart Sounds: Present: S1 & S2. Absent: systolic murmur, diastolic murmur - Extremities Extremities: no ischemia, pulses intact, pulses symmetrical, No edema, normal temperature, normal color Peripheral Pulses: within normal limits - Abdominal General gastrointestinal: soft, non-tender, non-distended, normal bowel sounds - Integumentary Integumentary: Present: warm, dry - Psychiatric Psychiatric: other (sedated) - Neurologic Neurologic: other (sedated) HEART Score - HEART Score EKG: Non-specific Age: 45-65 Troponin: Troponin T 0.125 ng/mL (0.00-0.029) H* D 10/12/20 04:00 Troponin: 1-3x normal limit - Critical Actions Critical Actions: 4-6 pts:12-16.6% risk of adverse cardiac event. Should be admitted Results - Labs CBC & Chem 7: 10/14/20 04:46 10/14/20 04:46 Labs: Laboratory Last Values WBC 11.1 K/mm3 (4.5-11.0) H 10/14/20 04:46 RBC 4.12 M/mm3 (3.65-5.03) 10/14/20 04:46 Hgb 12.1 gm/dl (11.8-15.2) 10/14/20 04:46 Hct 37.5 % (35.5-45.6) 10/14/20 04:46 MCV 91 fl (84-94) 10/14/20 04:46 MCH 30 pg (28-32) 10/14/20 04:46 MCHC 32 % (32-34) 10/14/20 04:46 RDW 15.3 % (13.2-15.2) H 10/14/20 04:46 Plt Count 153 K/mm3 (140-440) 10/14/20 04:46 Lymph % (Auto) 3.9 % (13.4-35.0) L 10/11/20 02:00 [place] % (Auto) 3.0 % (0.0-7.3) 10/11/20 02:00 Eos % (Auto) 0.0 % (0.0-4.3) 10/11/20 02:00 Baso % (Auto) 0.1 % (0.0-1.8) 10/11/20 02:00 Lymph # (Auto) 0.7 K/mm3 (1.2-5.4) L 10/11/20 02:00 [place] # (Auto) 0.5 K/mm3 (0.0-0.8) 10/11/20 02:00 Eos # (Auto) 0.0 K/mm3 (0.0-0.4) 10/11/20 02:00 Baso # (Auto) 0.0 K/mm3 (0.0-0.1) 10/11/20 02:00 Add Manual Diff Complete 10/10/20 18:18 Total Counted 100 10/10/20 18:18 Seg Neutrophils % 93.0 % (40.0-70.0) H 10/11/20 02:00 Seg Neuts % (Manual) 60.0 % (40.0-70.0) 10/10/20 18:18 Band Neutrophils % 27.0 % 10/10/20 18:18 Lymphocytes % (Manual) 4.0 % (13.4-35.0) L 10/10/20 18:18 Monocytes % (Manual) 9.0 % (0.0-7.3) H 10/10/20 18:18 Eosinophils % (Manual) 4.0 % (0.0-4.3) 10/10/20 10:48 Metamyelocytes % 1.0 % 10/10/20 10:48 Nucleated RBC % Not Reportable 10/10/20 18:18 Seg Neutrophils # 16.1 K/mm3 (1.8-7.7) H 10/11/20 02:00 Seg Neutrophils # Man 13.8 K/mm3 (1.8-7.7) H 10/10/20 18:18 Band Neutrophils # 6.2 K/mm3 10/10/20 18:18 Lymphocytes # (Manual) 0.9 K/mm3 (1.2-5.4) L 10/10/20 18:18 Abs React Lymphs (Man) 0.0 K/mm3 10/10/20 18:18 Monocytes # (Manual) 2.1 K/mm3 (0.0-0.8) H 10/10/20 18:18 Eosinophils # (Manual) 0.0 K/mm3 (0.0-0.4) 10/10/20 18:18 Basophils # (Manual) 0.0 K/mm3 (0.0-0.1) 10/10/20 18:18 Metamyelocytes # 0.0 K/mm3 10/10/20 18:18 Myelocytes # 0.0 K/mm3 10/10/20 18:18 Promyelocytes # 0.0 K/mm3 10/10/20 18:18 Blast Cells # 0.0 K/mm3 10/10/20 18:18 WBC Morphology Not Reportable 10/10/20 18:18 Hypersegmented Neuts Not Reportable 10/10/20 18:18 Hyposegmented Neuts Not Reportable 10/10/20 18:18 Hypogranular Neuts Not Reportable 10/10/20 18:18 Smudge Cells Not Reportable 10/10/20 18:18 Toxic Granulation Not Reportable 10/10/20 18:18 Toxic Vacuolation Not Reportable 10/10/20 18:18 Dohle Bodies Not Reportable 10/10/20 18:18 Pelger-Huet Anomaly Not Reportable 10/10/20 18:18 Dionicio Rods Not Reportable 10/10/20 18:18 Platelet Estimate Consistent w auto 10/10/20 18:18 Clumped Platelets Not Reportable 10/10/20 18:18 Plt Clumps, EDTA Not Reportable 10/10/20 18:18 Large Platelets Rare 10/10/20 18:18 Giant Platelets Rare 10/10/20 18:18 Platelet Satelliting Not Reportable 10/10/20 18:18 Plt Morphology Comment Not Reportable 10/10/20 18:18 RBC Morphology Not Reportable 10/10/20 18:18 Dimorphic RBCs Not Reportable 10/10/20 18:18 Polychromasia Not Reportable 10/10/20 18:18 Hypochromasia Not Reportable 10/10/20 18:18 Poikilocytosis Not Reportable 10/10/20 18:18 Anisocytosis Not Reportable 10/10/20 18:18 Microcytosis Not Reportable 10/10/20 18:18 Macrocytosis Not Reportable 10/10/20 18:18 Spherocytes Not Reportable 10/10/20 18:18 Pappenheimer Bodies Not Reportable 10/10/20 18:18 Sickle Cells Not Reportable 10/10/20 18:18 Target Cells Not Reportable 10/10/20 18:18 Tear Drop Cells Not Reportable 10/10/20 18:18 Ovalocytes Not Reportable 10/10/20 18:18 Helmet Cells Not Reportable 10/10/20 18:18 [place] Bodies Not Reportable 10/10/20 18:18 Landis Rings Not Reportable 10/10/20 18:18 Adelfo Cells Not Reportable 10/10/20 18:18 Bite Cells Not Reportable 10/10/20 18:18 Crenated Cell Not Reportable 10/10/20 18:18 Elliptocytes Not Reportable 10/10/20 18:18 Acanthocytes (Spur) Not Reportable 10/10/20 18:18 Rouleaux Not Reportable 10/10/20 18:18 Hemoglobin C Crystals Not Reportable 10/10/20 18:18 Schistocytes Not Reportable 10/10/20 18:18 Malaria parasites Not Reportable 10/10/20 18:18 Mauricio Bodies Not Reportable 10/10/20 18:18 Hem Pathologist Commnt No 10/10/20 18:18 PT 13.8 Sec. (12.2-14.9) 10/10/20 18:18 INR 1.07 (0.87-1.13) 10/10/20 18:18 APTT 26.9 Sec. (24.2-36.6) 10/10/20 18:18 D-Dimer 679.5 ng/mlDDU (0-234) H 10/10/20 10:48 Heparin Anti-Xa Level 0.22 U.I./ml (0.3-0.7) L 10/11/20 08:35 ABG pH 7.448 (7.320-7.450) 10/14/20 03:45 POC ABG pCO2 59.6 mmHg (32.0-48.0) H 10/14/20 03:45 ABG pCO2 75.3 mm Hg 10/10/20 15:50 POC ABG pO2 93.3 mmHg (83-108) 10/14/20 03:45 ABG pO2 60.3 mm Hg (80.0-90.0) L 10/10/20 15:50 POC ABG HCO3 40.3 10/14/20 03:45 ABG HCO3 32.0 mmol/L (20.0-26.0) H 10/10/20 15:50 ABG O2 Saturation 97.4 (0-100) 10/14/20 03:45 ABG O2 Content 17.7 (0.0-44) 10/10/20 15:50 POC ABG Base Excess 13.8 10/14/20 03:45 ABG Base Excess 2.2 mmol/L (-2.0-3.0) 10/10/20 15:50 ABG Hemoglobin 12.7 (12.0-17.5) 10/14/20 03:45 ABG Oxyhemoglobin 95.8 (94-98) 10/14/20 03:45 ABG Carboxyhemoglobin 1.4 % (0.0-5.0) 10/10/20 15:50 ABG Methemoglobin 0 (0.0-1.5) 10/14/20 03:45 ABG Sodium 151.4 mmol/L (136.0-145.0) H 10/14/20 03:45 ABG Potassium 3.3 mmol/L (3.40-4.50) L 10/14/20 03:45 ABG Chloride 105.0 mmol/L (98-107) 10/14/20 03:45 ABG Glucose 138 mg/dL (65-95) H 10/14/20 03:45 VBG pH 6.870 (7.320-7.420) L* 10/10/20 10:48 Oxyhemoglobin 84.4 % (95.0-99.0) L 10/10/20 15:50 Carboxyhemoglobin 1.6 (0.5-1.5) H 10/14/20 03:45 FiO2 100 % 10/10/20 15:50 FiO2 % 40 10/14/20 03:45 Sodium 152 mmol/L (137-145) H 10/14/20 04:46 Potassium 3.5 mmol/L (3.6-5.0) L 10/14/20 04:46 Chloride 105.8 mmol/L (98-107) 10/14/20 04:46 Carbon Dioxide 38 mmol/L (22-30) H D 10/14/20 04:46 Anion Gap 12 mmol/L 10/14/20 04:46 BUN 46 mg/dL (9-20) H 10/14/20 04:46 Creatinine 2.3 mg/dL (0.8-1.3) H 10/14/20 04:46 Estimated GFR 36 ml/min 10/14/20 04:46 BUN/Creatinine Ratio 20 % 10/14/20 04:46 Glucose 127 mg/dL (75-100) H 10/14/20 04:46 POC Glucose 114 mg/dL (70-105) H 10/14/20 11:11 Hemoglobin A1c 6.0 % (4-6) 10/11/20 02:00 Lactic Acid 1.10 mmol/L (0.7-2.0) 10/13/20 04:52 Calcium 8.5 mg/dL (8.4-10.2) 10/14/20 04:46 Phosphorus 3.60 mg/dL (2.5-4.5) 10/14/20 04:46 Magnesium 2.40 mg/dL (1.7-2.3) H 10/13/20 04:52 Ferritin 81.4 ng/mL (30.0-300.0) 10/10/20 10:48 Total Bilirubin 0.60 mg/dL (0.1-1.2) 10/11/20 02:00 AST 80 units/L (5-40) H 10/11/20 02:00 ALT 59 units/L (7-56) H 10/11/20 02:00 Alkaline Phosphatase 52 units/L (35-129) 10/11/20 02:00 Ammonia 214.0 umol/L (25-60) H 10/10/20 10:46 Lactate Dehydrogenase 386 units/L (91-180) H 10/10/20 10:48 Total Creatine Kinase 1192 units/L (55-170) H 10/10/20 18:18 CK-MB (CK-2) 21.7 ng/mL (0.0-4.0) H 10/10/20 18:18 CK-MB (CK-2) Rel Index 1.8 (0-4) 10/10/20 18:18 Troponin T 0.125 ng/mL (0.00-0.029) H* D 10/12/20 04:00 C-Reactive Protein 0.90 mg/dL (0.00-1.30) 10/10/20 10:48 NT-Pro-B Natriuret Pep 1187 pg/mL (0-900) H 10/10/20 10:46 Total Protein 6.8 g/dL (6.3-8.2) 10/11/20 02:00 Albumin 3.6 g/dL (3.9-5) L 10/11/20 02:00 Albumin/Globulin Ratio 1.1 % 10/11/20 02:00 Triglycerides 278 mg/dL (2-149) H 10/13/20 04:52 Cholesterol 138 mg/dL (50-199) 10/10/20 18:18 LDL Cholesterol Direct 76 mg/dL (50-130) 10/10/20 18:18 HDL Cholesterol 49 mg/dL (40-59) 10/10/20 18:18 Cholesterol/HDL Ratio 2.81 % 10/10/20 18:18 Procalcitonin 0.09 ng/mL (<0.15) 10/10/20 10:48 TSH 6.260 mlU/mL (0.270-4.200) H 10/10/20 10:46 Arterial Blood Glucose 138 mg/dL (65-95) H 10/14/20 03:45 Arterial Blood Ionized Calcium 4.5 mg/dL (4.6-5.3) L 10/14/20 03:45 Urine Color Yellow (Yellow) 10/11/20 13:30 Urine Turbidity Slightly-cloudy (Clear) 10/11/20 13:30 Urine pH 9.0 (5.0-7.0) H 10/11/20 13:30 Ur Specific [place] 1.012 (1.003-1.030) 10/11/20 13:30 Urine Protein 30 mg/dl mg/dL (Negative) 10/11/20 13:30 Urine Glucose (UA) Neg mg/dL (Negative) 10/11/20 13:30 Urine Ketones Neg mg/dL (Negative) 10/11/20 13:30 Urine Blood Mod (Negative) 10/11/20 13:30 Urine Nitrite Neg (Negative) 10/11/20 13:30 Urine Bilirubin Neg (Negative) 10/11/20 13:30 Urine Urobilinogen < 2.0 mg/dL (<2.0) 10/11/20 13:30 Ur Leukocyte Esterase Tr (Negative) 10/11/20 13:30 Urine WBC (Auto) 18.0 /HPF (0.0-6.0) H 10/11/20 13:30 Urine RBC (Auto) 150.0 /HPF (0.0-6.0) 10/11/20 13:30 U Epithel Cells (Auto) < 1.0 /HPF (0-13.0) 10/11/20 13:30 Urine Mucus Few /HPF 10/11/20 13:30 Urine Eosinophils None seen (None Seen) 10/11/20 13:30 Urine Creatinine 80.5 mg/dL (0.1-20.0) H 10/11/20 13:30 Urine Sodium 110 mmol/L 10/11/20 13:30 Random Vancomycin 10.1 ug/mL (0-40.0) 10/12/20 05:00 Urine Opiates Screen Negative 10/10/20 10:50 Urine Methadone Screen Negative 10/10/20 10:50 Ur Barbiturates Screen Negative 10/10/20 10:50 Ur Phencyclidine Scrn Negative 10/10/20 10:50 Ur Amphetamines Screen Negative 10/10/20 10:50 U Benzodiazepines Scrn Negative 10/10/20 10:50 Urine Cocaine Screen Negative 10/10/20 10:50 U Marijuana (THC) Screen Positive 10/10/20 10:50 Drugs of Abuse Note Disclamer 10/10/20 10:50 Plasma/Serum Alcohol < 0.01 % (0-0.07) 10/10/20 10:48 Coronavirus (PCR) Negative (Negative) 10/11/20 Unknown Blood Type AB POSITIVE 10/10/20 10:48 Antibody Screen Negative 10/10/20 10:48 Microbiology: Microbiology 10/10/20 10:48 Peripheral/Venous Blood Culture - Preliminary NO GROWTH AFTER 4 DAYS 10/10/20 10:46 Peripheral/Venous Blood Culture - Preliminary NO GROWTH AFTER 4 DAYS [place]/IV: Voiding Method Indwelling Catheter Active Medications - Current Medications Current Medications: Generic Name Dose Route Start Last Admin Trade Name Freq PRN Reason Stop Dose Admin Acetaminophen 650 mg 10/10/20 21:51 Acetaminophen 325 Mg Tab PO Q4H PRN Pain MILD(1-3)/Fever >100.5/[place] Acetaminophen 650 mg 10/11/20 11:24 10/11/20 12:05 Acetaminophen 650 Mg Rect Supp NE 650 mg Q6H PRN Administration Fever >101 Albuterol 2.5 mg 10/11/20 13:12 Albuterol 2.5 Mg/3 Ml Nebu IH Q6HRT PRN Shortness Of Breath Lipase/Protease/Amylase 1 each 10/10/20 22:18 Lipase 10,500/Protease 25,000/Amylase 43,750 (Units) Dr Cap FEEDTUBE PRN PRN For Clogged Feeding Tube Chlorothiazide Sodium 500 mg 10/14/20 10:00 Chlorothiazide 500 Mg Vial IV QDAY PEPITO Clonidine HCl 0.3 mg 10/14/20 15:00 Clonidine Tts 0.3 Mg/24 Hr Patch TD Fr PEPITO Heparin Sodium (Porcine) 5,000 unit 10/11/20 22:00 10/14/20 09:47 Heparin 5,000 Unit/1 Ml Vial SUB-Q 5,000 unit Q12HR PEPITO Administration Hydralazine HCl 20 mg 10/12/20 12:00 10/14/20 13:30 Hydralazine 20 Mg/1 Ml Inj IV 20 mg Q6H PEPITO Administration Hydromorphone HCl 0.5 mg 10/10/20 21:51 10/12/20 12:53 Hydromorphone 1 Mg/1 Ml Inj IV 0.5 mg Q3H PRN Administration Pain , Severe (7-10) Hydrophilic Ointment 1 applic 10/10/20 10:34 Lip Therapy Vaseline TP Q2HR PRN Dry Lips Propofol 1,000 mg in 100 mls @ 4.23 mls/hr 10/10/20 12:00 10/14/20 09:43 Diprivan 10 Mg/Ml IV 20 mcg/kg/min TITR PEPITO 16.92 mls/hr Administration Protocol 5 MCG/KG/MIN Nitroglycerin/Dextrose 50 mg in 250 mls @ 3 mls/hr 10/10/20 13:00 10/10/20 13:17 Tridil Drip 50mg/250ml IV 0 mcg/min TITR PEPITO 0 mls/hr Titration Protocol 10 MCG/MIN Norepinephrine 8 mg/ Sodium 250 mls @ 3.75 mls/hr 10/10/20 14:00 10/10/20 22:15 Chloride IV 0 mcg/min TITRATE PEPITO 0 mls/hr Titration Protocol 2 MCG/MIN Cefepime HCl 2 gm in 100 mls @ 200 mls/hr 10/12/20 22:00 10/13/20 21:02 Cefepime/Ns 2 Gm/100 Ml IV 200 mls/hr Q24H PEPITO Administration Protocol Azithromycin 500 mg in 250 mls @ 250 mls/hr 10/12/20 13:00 10/14/20 14:36 Zithromax/Ns IV 10/15/20 13:59 250 mls/hr Q24H PEPITO Administration Dextrose 1,000 mls @ 75 mls/hr 10/12/20 21:00 10/14/20 09:46 D5w IV 75 mls/hr DIRECT PEPITO Administration Levetiracetam 500 mg/ Dextrose 105 mls @ 400 mls/hr 10/13/20 18:00 10/14/20 0 9:48 IV 400 mls/hr Q12H PEPITO Administration Metoclopramide HCl 10 mg 10/10/20 21:51 Metoclopramide 10 Mg/2 Ml Inj IV Q6H PRN Nausea And Vomiting Metoprolol Tartrate 5 mg 10/11/20 12:00 10/14/20 05:50 Metoprolol Tartrate 5 Mg/5 Ml Inj IV 5 mg Q6HR PEPITO Administration Multi-Ingred Cream/Lotion/Oil/Oint 1 applic 10/10/20 10:34 Mineral Oil/Petrolatum, White Ophth Oint 3.5 Gm OU Q4HR PRN Dry Eye(s) Ondansetron HCl 4 mg 10/10/20 21:51 Ondansetron 4 Mg/2 Ml Inj IV Q3H PRN Nausea And Vomiting Pantoprazole Sodium 40 mg 10/12/20 22:00 10/14/20 09:50 Pantoprazole 40 Mg Inj IV 40 mg BID PEPITO Administration Simple Syrup 15 ml 10/10/20 22:18 Simple Syrup 15 Ml FEEDTUBE PRN PRN Hypoglycemia Simple Syrup 30 ml 10/10/20 22:18 Simple Syrup 15 Ml FEEDTUBE PRN PRN Hypoglycemia Sodium Bicarbonate 325 mg 10/10/20 22:18 Sodium Bicarbonate 325 Mg Tab FEEDTUBE PRN PRN For Clogged Feeding Tube Sodium Chloride 10 ml 10/10/20 22:00 10/13/20 21:02 Sodium Chloride 0.9% 10 Ml Flush Syringe IV 10 ml BID PEPITO Administration Sodium Chloride 10 ml 10/10/20 21:51 Sodium Chloride 0.9% 10 Ml Flush Syringe IV PRN PRN LINE FLUSH Nutrition/Malnutrition Assess - Dietary Evaluation Nutrition/Malnutrition Findings: Nutrition Notes Start: 10/11/20 08:38 Freq: Status: Active Protocol: Document 10/13/20 10:26 CW (Rec: 10/13/20 10:35 CW [email or web address]) Nutrition Notes Initial or Follow up Reassessment Current Diagnosis Acute Kidney Injury,Sepsis, Hypertension,Heart Failure, Respiratory Failure Other Pertinent Diagnosis GIB, pneu, Covid 19, [place], pulmonary edema Labs/Tests Na 155 BUN 52 Cr 2.7 Pertinent Medications propofol at 16.92 ml/hr KCl 10 mEq Lasix Height 6 ft Weight 125.8 kg [place] Body Weight (kg) 80.90 BMI 37.5 Weight change and time frame weight change likely related to lasix usage Subjective/Other Information F/U new TF tolerance, vent status, Na labs, renal related labs. Pt remains on mechanical vent. TF held and running at [facility] d/t coffee ground emesis. Pt being monitored for GI bleed. Percent of energy/protein needs met: 0%/0% Burn Absent Trauma Absent Skin Integrity/Comment Intact Current % PO Negligible Minimum of two criteria No physical signs of malnutrition #2 Nutrition Diagnosis Inadequate energy intake Etiology possible GI bleed As Evidenced by Signs and Symptoms TF on hold at this time. [facility] running #1 Nutrition Diagnosis Inadequate oral intake Diagnosis Progress(for reassessment Continues documentation) Is patient on ventilator? Yes Is Patient Ambulatory and/or Out of Bed No REE-([facility]-confined to bed) 2572.776 Kcal/Kg value to use for calculation 16 Approximate Energy Requirements Using 2013 kcal/Kg Calculation Used for Recommendations Kcal/kg Additional Notes protein needs up to 202.25g ( up to 2.5g/kgIBW) fluid needs: 1 ml/kcal or per MD Nutrition Intervention Change Diet Order: TF regimen Nutrition Support: Nepro at 45 ml/hr with a free water flush of 300 ml q4h. Kcal 1,944 Protein (gm) 87 Fluid (mL) 785 Goal #1 Restart TF regimen when medically feasible Anticipated Discharge Needs: unable to determine at this time Follow-Up By: 10/17/20 Additional Comments F/U for TF restart/tolerance, vent status, Na labs, renal related labs
[2020-10-14] MEDS: cloNIDine TTS 0.3 MG/24 HR PATCH TD SCH (16:00)
[2020-10-14] MEDS: CEFEPIME/NS 2 GM/100 ML 2 GM/100 ML BAG IV SCH (21:07)
[2020-10-15] MEDS: hydrALAZINE 20 MG/1 ML INJ IV SCH ×5 (00:02→23:04)
[2020-10-15] MEDS: DEXTROSE 5% IN WATER 1,000 ML IV SCH ×2 (00:02→16:01)
[2020-10-15 04:51] LABS: ABG Base Excess 11.3 mmol/L (-2.0-3.0); ABG HCO3 38.1 mmol/L (20.0-26.0); ABG Methemoglobin 0.5 % (0.0-1.5); ABG PCO2 62.9 mm Hg; ABG PH 7.4 pH Units (7.350-7.450)
[2020-10-15] MEDS: METOPROLOL TARTRATE 5 MG/5 ML INJ IV SCH ×4 (05:22→23:04)
[2020-10-15 05:29] LABS: Calcium 9.1 mg/dL (8.4-10.2)
--- NOTE | 2020-10-15 05:30 | XRay Report ---
CHEST 1 VIEW 10/15/2020 4:21 AM INDICATION / CLINICAL INFORMATION: follow up respiratory failure. COMPARISON: 10/14/2020 FINDINGS: SUPPORT DEVICES: Endotracheal tube and nasogastric tube are unchanged HEART / MEDIASTINUM: There is prominence of the cardiac silhouette LUNGS / PLEURA: There is focal airspace opacity in the right midlung zone. There is mild venous conge stion. No pneumothorax. ADDITIONAL FINDINGS: No significant additional findings. IMPRESSION: 1. There is focal airspace opacity in the right midlung zone which likely represents some atelectasis . There is mild venous congestion. Signer Name: Moris Kerr MD Signed: 10/15/2020 5:25 AM Workstation Name: [id number]
[2020-10-15] MEDS: levETIRAcetam 500 MG in DEXTROSE 5% IN WATER 100 ML IV SCH ×2 (05:33→17:47)
[2020-10-15] MEDS: POTASSIUM CHLORIDE 10 MEQ 10 MEQ/100 ML BAG IV SCH ×4 (09:34→13:14)
[2020-10-15] MEDS: PANTOPRAZOLE 40 MG INJ IV SCH ×2 (09:34→21:04)
[2020-10-15] MEDS: HEPARIN 5,000 UNIT/1 ML VIAL SUB-Q SCH ×2 (09:34→21:04)
[2020-10-15] MEDS: CHLOROTHIAZIDE 500 MG VIAL IV SCH (09:35)
--- NOTE | 2020-10-15 09:55 | Gastroenterology Progress Note ---
Assessment and Plan 1. UGI bleed - blood output from OG tube which has since cleared (bilious appearing now). H/H stable/normal range. cont IV PPI BID dosing. noted excessive bilious output reported yesterday. if persists, can obtain KUB to r/o obstructive process. no plans for endoscopy at this time given no overt bleeding and stable H/H Subjective Date of service: 10/15/20 Principal diagnosis: Cardiac arrest; Septic Shock; Ac. hypoxemic & hypercapnic resp failure; MOE Interval history: pt with bilious output from OG tube, no overt gi bleeding, intubated/sedated Objective - Exam Narrative Exam: gen: intubated/sedated HENT: + OG tube with bilious output Abd: soft, nd - Constitutional Vitals: Temp Pulse Resp BP Pulse Ox 98.6 F 92 H 24 156/93 99 10/15/20 08:00 10/15/20 08:30 10/15/20 08:30 10/15/20 08:30 10/15/20 08:30 - Labs CBC & Chem 7: 10/14/20 04:46 10/15/20 04:12 Labs: Laboratory Results - last 24 hr 10/14/20 10/14/20 10/14/20 11:11 18:53 23:23 ABG pH ABG pCO2 ABG pO2 ABG HCO3 ABG O2 Saturation ABG O2 Content ABG Base Excess ABG Hemoglobin ABG Carboxyhemoglobin ABG Methemoglobin Oxyhemoglobin FiO2 Sodium Potassium Chloride Carbon Dioxide Anion Gap BUN Creatinine Estimated GFR BUN/Creatinine Ratio Glucose POC Glucose 114 H 128 H 113 H Calcium Phosphorus Magnesium Procalcitonin 10/15/20 10/15/20 10/15/20 04:12 04:12 04:22 ABG pH 7.400 ABG pCO2 62.9 ABG pO2 115.0 H ABG HCO3 38.1 H ABG O2 Saturation 98.0 ABG O2 Content 14.9 ABG Base Excess 11.3 H ABG Hemoglobin 11.0 L ABG Carboxyhemoglobin 1.9 ABG Methemoglobin 0.5 Oxyhemoglobin 95.5 FiO2 21 Sodium 149 H Potassium 3.2 L Chloride 103.9 Carbon Dioxide 37 H Anion Gap 11 BUN 40 H Creatinine 2.0 H Estimated GFR 43 BUN/Creatinine Ratio 20 Glucose 124 H POC Glucose Calcium 9.1 Phosphorus 3.40 Magnesium 2.30 Procalcitonin 4.98 10/15/20 05:11 ABG pH ABG pCO2 ABG pO2 ABG HCO3 ABG O2 Saturation ABG O2 Content ABG Base Excess ABG Hemoglobin ABG Carboxyhemoglobin ABG Methemoglobin Oxyhemoglobin FiO2 Sodium Potassium Chloride Carbon Dioxide Anion Gap BUN Creatinine Estimated GFR BUN/Creatinine Ratio Glucose POC Glucose 96 Calcium Phosphorus Magnesium Procalcitonin
--- NOTE | 2020-10-15 11:36 | Progress Note ---
Assessment and Plan 1. Acute kidney injury: Vasomotor MOE in the setting of Cardiac arrest and shock. Renal US negative for hydro. Monitor renal function. Creatinine level improving. Renal prognosis is guarded. Avoid nephrotoxic agents. Meds dosage based on GFR. 2. FEN: Volume overload, improving, monitor. Hypokalemia, replete K, monitor. Hypernatremia, continue IV D5W, monitor. On Diuril. Metabolic alkalosis, improving, monitor. Monitor lytes and volume status. 3. Acute hypoxic respiratory failure, POA: 2/2 PNA and CHF. COVID test negative. Intubated on vent. D/w DIRECTOR PHYSICAL (10/14) to proceed with CTA chest to r/o PE if needed. 4. Sepsis, POA: 2/2 PNA. Abx. 5. NSTEMI type II: Post cardiac arrest EKG showed no acute ischemic changes. Was on Heparin gtt. Followed by Cards. 6. Acute CHF: Echo showed Normal EF and mild DD. 7. S/p Cardiac arrest. 8. GI bleed: Followed by GI. 9. Elevated Transaminases: Trend. 10. HTN: Monitor. Subjective: Patient was seen and examined at the bedside. Objective: General appearance: well-developed, appears stated age, intubated, on vent HEENT: ATNC, MONTSE Neck: trachea midline Respiratory: ctab Heart: regular, S1S2, no murmur Gastrointestinal: soft, normoactive bowel sounds, not tender Integumentary: no rash, warm and dry Ext: no edema Neurologic: not responding Musculoskeletal: no obvious deformity : Tuttle catheter Subjective Date of service: 10/15/20 Principal diagnosis: Cardiac arrest; Septic Shock; Ac. hypoxemic & hypercapnic resp failure; MOE Objective - Vital Signs Vital signs: Vital Signs - 12hr 10/14/20 10/14/20 10/15/20 23:45 23:51 00:00 Temperature Pulse Rate 89 86 89 Respiratory 21 29 H Rate Blood Pressure 156/88 156/88 166/87 O2 Sat by Pulse 100 100 100 Oximetry 10/15/20 10/15/20 10/15/20 00:02 00:15 00:31 Temperature Pulse Rate 84 95 H 91 H Respiratory 20 24 Rate Blood Pressure 166/87 182/77 170/45 O2 Sat by Pulse 100 99 Oximetry 10/15/20 10/15/2021 00:45 01:01 01:15 Temperature Pulse Rate 97 H 92 H 88 Respiratory 19 20 20 Rate Blood Pressure 161/72 145/62 156/72 O2 Sat by Pulse 99 99 99 Oximetry 10/15/20 10/15/20 10/15/20 01:31 01:45 02:00 Temperature Pulse Rate 99 H 85 87 Respiratory 15 18 19 Rate Blood Pressure 147/79 146/70 130/68 O2 Sat by Pulse 99 100 99 Oximetry 10/15/20 10/15/20 10/15/20 02:15 02:31 02:45 Temperature Pulse Rate 90 99 H 97 H Respiratory 22 24 20 Rate Blood Pressure 126/77 182/98 182/98 O2 Sat by Pulse 97 100 99 Oximetry 10/15/20 10/15/20 10/15/20 03:01 03:15 03:31 Temperature Pulse Rate 105 H 107 H 97 H Respiratory 20 18 21 Rate Blood Pressure 179/87 186/93 167/72 O2 Sat by Pulse 99 100 99 Oximetry 10/15/20 10/15/20 10/15/20 03:42 03:45 04:00 Temperature 99.9 F H Pulse Rate 96 H 94 H Respiratory 18 23 Rate Blood Pressure 183/73 O2 Sat by Pulse 99 97 Oximetry 10/15/20 10/15/20 10/15/20 04:01 04:15 04:31 Temperature Pulse Rate 100 H 87 95 H Respiratory 19 26 H 26 H Rate Blood Pressure 176/80 181/97 174/79 O2 Sat by Pulse 100 100 100 Oximetry 10/15/20 10/15/20 10/15/20 04:45 05:01 05:15 Temperature Pulse Rate 101 H 92 H 102 H Respiratory 26 H 26 H 23 Rate Blood Pressure 174/79 175/81 175/81 O2 Sat by Pulse 100 100 100 Oximetry 10/15/20 10/15/20 10/15/20 05:22 05:31 05:45 Temperature Pulse Rate 102 H 81 83 Respiratory 27 H 26 H Rate Blood Pressure 187/106 182/80 239/119 O2 Sat by Pulse 100 100 Oximetry 10/15/20 10/15/20 10/15/20 05:49 06:01 06:15 Temperature Pulse Rate 83 83 81 Respiratory 27 H 22 Rate Blood Pressure 239/119 178/97 153/81 O2 Sat by Pulse 100 100 Oximetry 10/15/20 10/15/20 10/15/20 06:30 06:45 07:00 Temperature Pulse Rate 89 88 90 Respiratory 22 21 22 Rate Blood Pressure 132/67 134/65 137/59 O2 Sat by Pulse 99 99 100 Oximetry 10/15/20 10/15/20 10/15/20 07:15 07:32 07:42 Temperature Pulse Rate 82 84 85 Respiratory 21 25 H Rate Blood Pressure 117/62 180/94 155/56 O2 Sat by Pulse 99 100 100 Oximetry 10/15/20 10/15/20 10/15/20 07:45 08:00 08:01 Temperature 98.6 F Pulse Rate 86 86 91 H Respiratory 21 25 H Rate Blood Pressure 180/94 162/84 O2 Sat by Pulse 100 100 Oximetry 10/15/20 10/15/20 10/15/20 08:15 08:30 11:07 Temperature Pulse Rate 91 H 92 H 86 Respiratory 24 24 Rate Blood Pressure 159/120 156/93 192/90 O2 Sat by Pulse 100 99 Oximetry 10/15/20 11:31 Temperature Pulse Rate 92 H Respiratory Rate Blood Pressure 177/94 O2 Sat by Pulse Oximetry - Lab 10/14/20 04:46 10/15/20 04:12 Most recent lab results ABG pH 7.400 pH Units (7.350-7.450) 10/15/20 04:22 ABG pCO2 62.9 mm Hg 10/15/20 04:22 ABG pO2 115.0 mm Hg (80.0-90.0) H 10/15/20 04:22 ABG HCO3 38.1 mmol/L (20.0-26.0) H 10/15/20 04:22 ABG O2 Saturation 98.0 % (95.0-99.0) 10/15/20 04:22 Calcium 9.1 mg/dL (8.4-10.2) 10/15/20 04:12 Phosphorus 3.40 mg/dL (2.5-4.5) 10/15/20 04:12 Magnesium 2.30 mg/dL (1.7-2.3) 10/15/20 04:12 Urine Creatinine 80.5 mg/dL (0.1-20.0) H 10/11/20 13:30 Urine Sodium 110 mmol/L 10/11/20 13:30 Medications & Allergies - Medications Allergies/Adverse Reactions: Allergies No Known Allergies Allergy (Unverified 07/06/13 15:19) Home Medications: Home Medications Medication Instructions Recorded Confirmed Last Taken Type Albuterol Sulfate [Ventolin HFA] 2 puff IH Q4H PRN #1 hfa.aer.ad 07/06/13 Unknown Rx Prednisone 40 mg PO QDAY #8 tablet 07/06/13 Unknown Rx Albuterol Mdi (or & Nicu Only) 2 puff IH Q4H PRN #1 inha 07/07/13 Unknown Rx [ProAir HFA Inhaler] Azithromycin [Zithromax Z-KYLE] 500 mg PO QDAY #5 tab 07/07/13 Unknown Rx HYDROcodone/APAP 5-325 [Jackson 2 each PO Q6H PRN #30 tablet 07/07/13 Unknown Rx 5-325 mg TAB] predniSONE [Deltasone] 40 mg PO QDAY #10 tablet 07/07/13 Unknown Rx Active Medications: Generic Name Dose Route Start Last Admin Trade Name Freq PRN Reason Stop Dose Admin Acetaminophen 650 mg 10/10/20 21:51 Acetaminophen 325 Mg Tab PO Q4H PRN Pain MILD(1-3)/Fever >100.5/SALVADOR Acetaminophen 650 mg 10/11/20 11:24 10/11/20 12:05 Acetaminophen 650 Mg Rect Supp IN 650 mg Q6H PRN Administration Fever >101 Albuterol 2.5 mg 10/11/20 13:12 Albuterol 2.5 Mg/3 Ml Nebu IH Q6HRT PRN Shortness Of Breath Lipase/Protease/Amylase 1 each 10/10/20 22:18 Lipase 10,500/Protease 25,000/Amylase 43,750 (Units) Dr Santana FEEDTUBE PRN PRN For Clogged Feeding Tube Chlorothiazide Sodium 500 mg 10/14/20 10:00 10/15/20 09:35 Chlorothiazide 500 Mg Vial IV 500 mg QDAY PEPITO Administration Clonidine HCl 0.3 mg 10/14/20 15:00 10/14/20 16:00 Clonidine Tts 0.3 Mg/24 Hr Patch TD 0.3 mg Fr PEPITO Administration Heparin Sodium (Porcine) 5,000 unit 10/11/20 22:00 10/15/20 09:34 Heparin 5,000 Unit/1 Ml Vial SUB-Q 5,000 unit Q12HR PEPITO Administration Hydralazine HCl 20 mg 10/12/20 12:00 10/15/20 11:07 Hydralazine 20 Mg/1 Ml Inj IV 20 mg Q6H PEPITO Administration Hydromorphone HCl 0.5 mg 10/10/20 21:51 10/12/20 12:53 Hydromorphone 1 Mg/1 Ml Inj IV 0.5 mg Q3H PRN Administration Pain , Severe (7-10) Hydrophilic Ointment 1 applic 10/10/20 10:34 Lip Therapy Vaseline TP Q2HR PRN Dry Lips Propofol 1,000 mg in 100 mls @ 4.23 mls/hr 10/10/20 12:00 10/15/20 10:37 Diprivan 10 Mg/Ml IV 20 mcg/kg/min TITR PEPITO 16.92 mls/hr Titration Protocol 5 MCG/KG/MIN Nitroglycerin/Dextrose 50 mg in 250 mls @ 3 mls/hr 10/10/20 13:00 10/10/20 13:17 Tridil Drip 50mg/250ml IV 0 mcg/min TITR PEPITO 0 mls/hr Titration Protocol 10 MCG/MIN Norepinephrine 8 mg/ Sodium 250 mls @ 3.75 mls/hr 10/10/20 14:00 10/10/20 22:15 Chloride IV 0 mcg/min TITRATE PEPITO 0 mls/hr Titration Protocol 2 MCG/MIN Cefepime HCl 2 gm in 100 mls @ 200 mls/hr 10/12/20 22:00 10/14/20 21:07 Cefepime/Ns 2 Gm/100 Ml IV 200 mls/hr Q24H PEPITO Administration Protocol Azithromycin 500 mg in 250 mls @ 250 mls/hr 10/12/20 13:00 10/14/20 14:36 Zithromax/Ns IV 10/15/20 13:59 250 mls/hr Q24H PEPITO Administration Dextrose 1,000 mls @ 75 mls/hr 10/12/20 21:00 10/15/20 00:02 D5w IV 10/15/20 20:00 75 mls/hr DIRECT PEPITO Administration Levetiracetam 500 mg/ Dextrose 105 mls @ 400 mls/hr 10/13/20 18:00 10/15/20 0 5:33 IV 400 mls/hr Q12H PEPITO Administration Potassium Chloride 10 meq in 100 mls @ 100 mls/hr 10/15/20 09:00 10/15/20 11:09 Kcl 10meq/100ml IV 10/15/20 12:59 100 mls/hr Q1H PEPITO Administration Amino Acids/Electrolytes/Dextrose 2,016 mls @ 84 mls/hr 10/15/20 20:00 Tpn Adult IV 10/16/20 19:59 DAILY@1999 [facility] Protocol Metoclopramide HCl 10 mg 10/10/20 21:51 Metoclopramide 10 Mg/2 Ml Inj IV Q6H PRN Nausea And Vomiting Metoprolol Tartrate 5 mg 10/11/20 12:00 10/15/20 11:31 Metoprolol Tartrate 5 Mg/5 Ml Inj IV 5 mg Q6HR PEPITO Administration Multi-Ingred Cream/Lotion/Oil/Oint 1 applic 10/10/20 10:34 Mineral Oil/Petrolatum, White Ophth Oint 3.5 Gm OU Q4HR PRN Dry Eye(s) Ondansetron HCl 4 mg 10/10/20 21:51 Ondansetron 4 Mg/2 Ml Inj IV Q3H PRN Nausea And Vomiting Pantoprazole Sodium 40 mg 10/12/20 22:00 10/15/20 09:34 Pantoprazole 40 Mg Inj IV 40 mg BID PEPITO Administration Simple Syrup 15 ml 10/10/20 22:18 Simple Syrup 15 Ml FEEDTUBE PRN PRN Hypoglycemia Simple Syrup 30 ml 10/10/20 22:18 Simple Syrup 15 Ml FEEDTUBE PRN PRN Hypoglycemia Sodium Bicarbonate 325 mg 10/10/20 22:18 Sodium Bicarbonate 325 Mg Tab FEEDTUBE PRN PRN For Clogged Feeding Tube Sodium Chloride 10 ml 10/10/20 22:00 10/15/20 09:35 Sodium Chloride 0.9% 10 Ml Flush Syringe IV 10 ml BID PEPITO Administration Sodium Chloride 10 ml 10/10/20 21:51 Sodium Chloride 0.9% 10 Ml Flush Syringe IV PRN PRN LINE FLUSH
[2020-10-15] MEDS: AZITHROMYCIN/NS 500 MG/250 ML 500 MG/250 ML BAG IV SCH (13:14)
[2020-10-15] MEDS ORDERED: MIDAZOLAM 5 MG/5 ML INJ MDV IV NR (14:00)
[2020-10-15] MEDS: HYDROmorphone 1 MG/1 ML INJ IV PRN (14:45)
--- NOTE | 2020-10-15 15:13 | Progress Note ---
Assessment and Plan Cardiac arrest x3 with ROSC Severe septic and cardiogenic shock Acute respiratory failure with hypoxemia and hypercarbia Acute pulmonary edema MOE (acute kidney injury) Lactic acidosis, severe metabolic acidosis Bilateral pneumonia, aspiration pneumonia Elevated troponins - replace potassium - continue free water supplementation - for CT abd/pelvis today - continue care as below otherwise; - get MRI brain as per neurology recommendations - continue set rate on MVS to 12/min - keep peep at 8 cm H2O - continue to hold on full anticoagulation re: negative Dopplers and clinical improvement in oxygenation - continue Clonidine 0.3 mg weekly patch - follow G.I. evaluation - de-escalate empiric anti-infective's per ID rec's (on Cefepime & Azithromycin) - follow clinically re: fevers / WBC - IV heparin for elevated troponins with possible NSTEMI. (on hold now re: ? G.I. Bleed) - Monitor hemodynamics closely - daily SAT's and SBT assessment as tolerated - wean supplemental oxygen for target O2 sat's > 92% acutely - VAP bundle addressed - continue lung protective strategies - bronchodilators with pulmonary hygiene per RT - wean per pulmonary driven protocols otherwise - Monitor urine output closely - bicarbonate infusion - avoid nephrotoxins, renally dose all medications - continue to avoid benzodiazepine's, reduce the possibility of delirium - continue Scopolamine for secretion control - continue wound care per RN/WCN - prn analgesia per CPOT score - Maintenance of sleep-wake cycle, avoid delirium - continue enteral nutritional support at goal rate as tolerated - G.I. & VTE prophylaxis - PT/OT/ROM exercises - continue mobility protocols for pressure ulcer prophylaxis - Monitor hemodynamics closely - continue other care per attending / other consultants - discharge planning ongoing concurrently .... Re-evaluate in am & prn CONDITION: CRITICAL PROGNOSIS: GUARDED CODE STATUS: FULL CODE The high probability of a clinically significant, sudden or life-threatening deterioration of the [respiratory, cardiovascular & neurologic] system(s) required my full and direct attention, intervention and personal management. The aggregate critical care time was [32] minutes without overlap. Time includes spent on; [x] Data Review and interpretation [x] Patient assessment and monitoring of vital signs [x] Documentation [x] Medication orders and management Subjective Date of service: 10/15/20 Principal diagnosis: Cardiac arrest; Septic Shock; Ac. hypoxemic & hypercapnic resp failure; MOE Interval history: Patient is seen today for: Cardiac arrest with ROSC; Severe septic and cardiogenic shock; Acute respiratory failure with hypoxemia and hypercarbia; Acute pulmonary edema; MOE; Lactic acidosis; severe metabolic acidosis; Bilateral pneumonia; aspiration pneumonia; Elevated troponins Seen and examined at bedside; 24hour events reviewed; nursing and respiratory care staff consulted; no adverse overnight events reported to me; resting peacefully in bed; AMS is persistent but more spontaneous movements; azotemia is improving; awaiting MRI & CT Abd/pelvis; to begin TPN re: copious NGT output Objective Vital Signs - 12hr 10/15/20 10/15/20 10/15/20 03:15 03:31 03:42 Temperature 99.9 F H Pulse Rate 107 H 97 H Respiratory 18 21 Rate Blood Pressure 186/93 167/72 O2 Sat by Pulse 100 99 Oximetry 10/15/20 10/15/20 10/15/20 03:45 04:00 04:01 Temperature Pulse Rate 96 H 94 H 100 H Respiratory 18 23 19 Rate Blood Pressure 183/73 176/80 O2 Sat by Pulse 99 97 100 Oximetry 10/15/20 10/15/20 10/15/20 04:15 04:31 04:45 Temperature Pulse Rate 87 95 H 101 H Respiratory 26 H 26 H 26 H Rate Blood Pressure 181/97 174/79 174/79 O2 Sat by Pulse 100 100 100 Oximetry 10/15/20 10/15/20 10/15/20 05:01 05:15 05:22 Temperature Pulse Rate 92 H 102 H 102 H Respiratory 26 H 23 Rate Blood Pressure 175/81 175/81 187/106 O2 Sat by Pulse 100 100 Oximetry 10/15/20 10/15/20 10/15/20 05:31 05:45 05:49 Temperature Pulse Rate 81 83 83 Respiratory 27 H 26 H Rate Blood Pressure 182/80 239/119 239/119 O2 Sat by Pulse 100 100 Oximetry 10/15/20 10/15/20 10/15/20 06:01 06:15 06:30 Temperature Pulse Rate 83 81 89 Respiratory 27 H 22 22 Rate Blood Pressure 178/97 153/81 132/67 O2 Sat by Pulse 100 100 99 Oximetry 10/15/20 10/15/20 10/15/20 06:45 07:00 07:15 Temperature Pulse Rate 88 90 82 Respiratory 21 22 21 Rate Blood Pressure 134/65 137/59 117/62 O2 Sat by Pulse 99 100 99 Oximetry 10/15/20 10/15/20 10/15/20 07:32 07:42 07:45 Temperature Pulse Rate 84 85 86 Respiratory 25 H 21 Rate Blood Pressure 180/94 155/56 180/94 O2 Sat by Pulse 100 100 100 Oximetry 10/15/20 10/15/20 10/15/20 08:00 08:01 08:15 Temperature 98.6 F Pulse Rate 86 91 H 91 H Respiratory 25 H 25 H 24 Rate Blood Pressure 162/84 159/120 O2 Sat by Pulse 100 100 100 Oximetry 10/15/20 10/15/20 10/15/20 08:30 08:45 09:00 Temperature Pulse Rate 92 H 94 H 84 Respiratory 24 22 19 Rate Blood Pressure 156/93 156/93 164/74 O2 Sat by Pulse 99 99 99 Oximetry 10/15/20 10/15/20 10/15/20 09:15 09:31 09:45 Temperature Pulse Rate 85 82 83 Respiratory 21 22 23 Rate Blood Pressure 151/78 166/77 185/105 O2 Sat by Pulse 99 100 100 Oximetry 10/15/20 10/15/20 10/15/20 10:00 10:15 10:31 Temperature Pulse Rate 83 96 H 85 Respiratory 23 27 H 23 Rate Blood Pressure 172/100 172/137 190/97 O2 Sat by Pulse 100 100 100 Oximetry 10/15/20 10/15/20 10/15/20 10:45 11:01 11:07 Temperature Pulse Rate 87 102 H 86 Respiratory 25 H 27 H Rate Blood Pressure 189/100 192/90 192/90 O2 Sat by Pulse 100 100 Oximetry 10/15/20 10/15/20 10/15/20 11:13 11:15 11:30 Temperature Pulse Rate 85 97 H 90 Respiratory 24 24 Rate Blood Pressure 150/86 197/95 177/94 O2 Sat by Pulse 99 100 99 Oximetry 10/15/20 10/15/20 10/15/20 11:31 11:45 12:00 Temperature 99 F Pulse Rate 92 H 75 86 Respiratory 25 H 23 Rate Blood Pressure 177/94 160/93 150/86 O2 Sat by Pulse 100 98 Oximetry 10/15/20 10/15/20 10/15/20 12:15 12:30 12:45 Temperature Pulse Rate 82 78 81 Respiratory 23 21 15 Rate Blood Pressure 152/92 148/72 143/77 O2 Sat by Pulse 99 99 99 Oximetry 10/15/20 10/15/20 10/15/20 13:00 13:15 13:31 Temperature Pulse Rate 80 91 H 84 Respiratory 22 20 24 Rate Blood Pressure 152/77 150/87 160/103 O2 Sat by Pulse 99 98 98 Oximetry Constitutional: no acute distress, other (middle aged obese male with mildly increased respiratory efort at rest) Eyes: non-icteric ENT: oropharynx moist, oropharyngeal exudate pre, other (ETT 23 cm ANNIE) Neck: supple, no lymphadenopathy, no JVD Effort: mildly labored Ascultation: Bilateral: diminished breath sounds, rhonchi (scant) Percussion: Bilateral: not dull Cardiovascular: regular rate and rhythm Gastrointestinal: normoactive bowel sounds, soft, non-tender, non-distended (protuberant) Integumentary: normal Extremities: no cyanosis, no edema, pulses normal, no ischemia or petechiae Neurologic: pupils equal and round, unable to assess Psychiatric: other (unable to assess re: AMS) CBC and BMP: 10/16/20 03:13 10/16/20 03:13 ABG, PT/INR, D-dimer: ABG ABG pH 7.400 pH Units (7.350-7.450) 10/15/20 04:22 POC ABG pCO2 59.6 mmHg (32.0-48.0) H 10/14/20 03:45 ABG pCO2 62.9 mm Hg 10/15/20 04:22 POC ABG pO2 93.3 mmHg (83-108) 10/14/20 03:45 ABG pO2 115.0 mm Hg (80.0-90.0) H 10/15/20 04:22 POC ABG HCO3 40.3 10/14/20 03:45 ABG O2 Saturation 98.0 % (95.0-99.0) 10/15/20 04:22 PT/INR, D-dimer PT 13.8 Sec. (12.2-14.9) 10/10/20 18:18 INR 1.07 (0.87-1.13) 10/10/20 18:18 D-Dimer 679.5 ng/mlDDU (0-234) H 10/10/20 10:48 Abnormal lab findings: Abnormal Labs 10/10/20 10/10/20 10/10/20 10:46 10:46 10:46 WBC RBC Hgb Hct RDW Lymph % (Auto) Lymph # (Auto) Seg Neutrophils % Lymphocytes % (Manual) Monocytes % (Manual) Seg Neutrophils # Seg Neutrophils # Man Lymphocytes # (Manual) Monocytes # (Manual) D-Dimer Heparin Anti-Xa Level ABG pH POC ABG pCO2 POC ABG pO2 ABG pO2 ABG HCO3 ABG O2 Saturation ABG Base Excess ABG Hemoglobin ABG Oxyhemoglobin ABG Sodium ABG Potassium ABG Chloride ABG Glucose VBG pH Oxyhemoglobin Carboxyhemoglobin Sodium Potassium Chloride Carbon Dioxide BUN Creatinine Glucose POC Glucose Lactic Acid 13.60 H* Calcium Magnesium AST ALT Ammonia 214.0 H Lactate Dehydrogenase Total Creatine Kinase CK-MB (CK-2) Troponin T NT-Pro-B Natriuret Pep Total Protein Albumin Triglycerides TSH 6.260 H Arterial Blood Glucose Arterial Blood Ionized Calcium Urine pH Urine WBC (Auto) Urine Creatinine 10/10/20 10/10/20 10/10/20 10:46 10:48 10:48 WBC RBC 5.28 H Hgb 15.5 H Hct 48.8 H RDW Lymph % (Auto) Lymph # (Auto) Seg Neutrophils % Lymphocytes % (Manual) 42.0 H Monocytes % (Manual) Seg Neutrophils # Seg Neutrophils # Man Lymphocytes # (Manual) Monocytes # (Manual) D-Dimer Heparin Anti-Xa Level ABG pH POC ABG pCO2 POC ABG pO2 ABG pO2 ABG HCO3 ABG O2 Saturation ABG Base Excess ABG Hemoglobin ABG Oxyhemoglobin ABG Sodium ABG Potassium ABG Chloride ABG Glucose VBG pH Oxyhemoglobin Carboxyhemoglobin Sodium Potassium 3.3 L Chloride 91.2 L Carbon Dioxide BUN Creatinine 1.8 H Glucose 231 H POC Glucose Lactic Acid Calcium Magnesium AST 60 H ALT 57 H Ammonia Lactate Dehydrogenase Total Creatine Kinase CK-MB (CK-2) Troponin T NT-Pro-B Natriuret Pep 1187 H Total Protein 9.0 H Albumin Triglycerides TSH Arterial Blood Glucose Arterial Blood Ionized Calcium Urine pH Urine WBC (Auto) Urine Creatinine 10/10/20 10/10/20 10/10/20 10:48 10:48 10:48 WBC RBC Hgb Hct RDW Lymph % (Auto) Lymph # (Auto) Seg Neutrophils % Lymphocytes % (Manual) Monocytes % (Manual) Seg Neutrophils # Seg Neutrophils # Man Lymphocytes # (Manual) Monocytes # (Manual) D-Dimer 679.5 H Heparin Anti-Xa Level ABG pH POC ABG pCO2 POC ABG pO2 ABG pO2 ABG HCO3 ABG O2 Saturation ABG Base Excess ABG Hemoglobin ABG Oxyhemoglobin ABG Sodium ABG Potassium ABG Chloride ABG Glucose VBG pH 6.870 L* Oxyhemoglobin Carboxyhemoglobin Sodium Potassium Chloride Carbon Dioxide BUN Creatinine Glucose POC Glucose Lactic Acid Calcium Magnesium AST ALT Ammonia Lactate Dehydrogenase 386 H Total Creatine Kinase CK-MB (CK-2) Troponin T NT-Pro-B Natriuret Pep Total Protein Albumin Triglycerides TSH Arterial Blood Glucose Arterial Blood Ionized Calcium Urine pH Urine WBC (Auto) Urine Creatinine 10/10/20 10/10/20 10/10/20 14:10 14:20 15:50 WBC RBC Hgb Hct RDW Lymph % (Auto) Lymph # (Auto) Seg Neutrophils % Lymphocytes % (Manual) Monocytes % (Manual) Seg Neutrophils # Seg Neutrophils # Man Lymphocytes # (Manual) Monocytes # (Manual) D-Dimer Heparin Anti-Xa Level ABG pH 7.175 L 7.247 L POC ABG pCO2 85.0 H POC ABG pO2 43.7 L ABG pO2 60.3 L ABG HCO3 32.0 H ABG O2 Saturation 86.1 L ABG Base Excess ABG Hemoglobin ABG Oxyhemoglobin 67.7 L ABG Sodium ABG Potassium ABG Chloride ABG Glucose 247 H VBG pH Oxyhemoglobin 84.4 L Carboxyhemoglobin Sodium Potassium Chloride Carbon Dioxide BUN Creatinine Glucose POC Glucose Lactic Acid 4.00 H* Calcium Magnesium AST ALT Ammonia Lactate Dehydrogenase Total Creatine Kinase CK-MB (CK-2) Troponin T NT-Pro-B Natriuret Pep Total Protein Albumin Triglycerides TSH Arterial Blood Glucose 247 H Arterial Blood Ionized Calcium 4.4 L Urine pH Urine WBC (Auto) Urine Creatinine 10/10/20 10/10/20 10/10/20 15:50 16:22 18:18 WBC RBC Hgb Hct RDW Lymph % (Auto) Lymph # (Auto) Seg Neutrophils % Lymphocytes % (Manual) Monocytes % (Manual) Seg Neutrophils # Seg Neutrophils # Man Lymphocytes # (Manual) Monocytes # (Manual) D-Dimer Heparin Anti-Xa Level ABG pH 7.171 L POC ABG pCO2 96.6 H POC ABG pO2 55.3 L ABG pO2 ABG HCO3 ABG O2 Saturation ABG Base Excess ABG Hemoglobin ABG Oxyhemoglobin 81.4 L ABG Sodium ABG Potassium ABG Chloride ABG Glucose 115 H VBG pH Oxyhemoglobin Carboxyhemoglobin Sodium Potassium Chloride Carbon Dioxide BUN Creatinine Glucose POC Glucose 132 H Lactic Acid Calcium Magnesium AST ALT Ammonia Lactate Dehydrogenase Total Creatine Kinase 1192 H CK-MB (CK-2) 21.7 H Troponin T 0.377 H* D NT-Pro-B Natriuret Pep Total Protein Albumin Triglycerides TSH Arterial Blood Glucose 115 H Arterial Blood Ionized Calcium Urine pH Urine WBC (Auto) Urine Creatinine 10/10/20 10/10/20 10/10/20 18:18 18:18 22:49 WBC 23.0 H RBC 5.12 H Hgb Hct RDW Lymph % (Auto) Lymph # (Auto) Seg Neutrophils % Lymphocytes % (Manual) 4.0 L Monocytes % (Manual) 9.0 H Seg Neutrophils # Seg Neutrophils # Man 13.8 H Lymphocytes # (Manual) 0.9 L Monocytes # (Manual) 2.1 H D-Dimer Heparin Anti-Xa Level ABG pH POC ABG pCO2 POC ABG pO2 ABG pO2 ABG HCO3 ABG O2 Saturation ABG Base Excess ABG Hemoglobin ABG Oxyhemoglobin ABG Sodium ABG Potassium ABG Chloride ABG Glucose VBG pH Oxyhemoglobin Carboxyhemoglobin Sodium 146 H Potassium Chloride Carbon Dioxide 34 H D BUN 27 H Creatinine 2.7 H Glucose 102 H POC Glucose Lactic Acid Calcium Magnesium AST 90 H ALT 66 H Ammonia Lactate Dehydrogenase Total Creatine Kinase CK-MB (CK-2) Troponin T 0.273 H* D NT-Pro-B Natriuret Pep Total Protein Albumin Triglycerides TSH Arterial Blood Glucose Arterial Blood Ionized Calcium Urine pH Urine WBC (Auto) Urine Creatinine 10/11/20 10/11/20 10/11/20 02:00 02:00 02:00 WBC 17.3 H RBC Hgb Hct RDW Lymph % (Auto) 3.9 L Lymph # (Auto) 0.7 L Seg Neutrophils % 93.0 H Lymphocytes % (Manual) Monocytes % (Manual) Seg Neutrophils # 16.1 H Seg Neutrophils # Man Lymphocytes # (Manual) Monocytes # (Manual) D-Dimer Heparin Anti-Xa Level ABG pH POC ABG pCO2 POC ABG pO2 ABG pO2 ABG HCO3 ABG O2 Saturation ABG Base Excess ABG Hemoglobin ABG Oxyhemoglobin ABG Sodium ABG Potassium ABG Chloride ABG Glucose VBG pH Oxyhemoglobin Carboxyhemoglobin Sodium 149 H Potassium 3.3 L Chloride 95.3 L Carbon Dioxide 37 H BUN 29 H Creatinine 2.6 H Glucose POC Glucose Lactic Acid Calcium Magnesium AST 80 H ALT 59 H Ammonia Lactate Dehydrogenase Total Creatine Kinase CK-MB (CK-2) Troponin T 0.201 H* D NT-Pro-B Natriuret Pep Total Protein Albumin 3.6 L Triglycerides TSH Arterial Blood Glucose Arterial Blood Ionized Calcium Urine pH Urine WBC (Auto) Urine Creatinine 10/11/20 10/11/20 10/11/20 03:51 08:35 11:15 WBC RBC Hgb Hct RDW Lymph % (Auto) Lymph # (Auto) Seg Neutrophils % Lymphocytes % (Manual) Monocytes % (Manual) Seg Neutrophils # Seg Neutrophils # Man Lymphocytes # (Manual) Monocytes # (Manual) D-Dimer Heparin Anti-Xa Level 0.22 L ABG pH 7.491 H POC ABG pCO2 57.6 H POC ABG pO2 ABG pO2 ABG HCO3 ABG O2 Saturation ABG Base Excess ABG Hemoglobin ABG Oxyhemoglobin ABG Sodium 150.0 H ABG Potassium 3.1 L ABG Chloride 96.0 L ABG Glucose 122 H VBG pH Oxyhemoglobin Carboxyhemoglobin Sodium Potassium Chloride Carbon Dioxide BUN Creatinine Glucose POC Glucose 151 H Lactic Acid Calcium Magnesium AST ALT Ammonia Lactate Dehydrogenase Total Creatine Kinase CK-MB (CK-2) Troponin T NT-Pro-B Natriuret Pep Total Protein Albumin Triglycerides TSH Arterial Blood Glucose 122 H Arterial Blood Ionized Calcium 3.9 L Urine pH Urine WBC (Auto) Urine Creatinine 10/11/20 10/11/20 10/11/20 13:30 13:30 13:30 WBC 15.0 H RBC Hgb Hct RDW Lymph % (Auto) Lymph # (Auto) Seg Neutrophils % Lymphocytes % (Manual) Monocytes % (Manual) Seg Neutrophils # Seg Neutrophils # Man Lymphocytes # (Manual) Monocytes # (Manual) D-Dimer Heparin Anti-Xa Level ABG pH POC ABG pCO2 POC ABG pO2 ABG pO2 ABG HCO3 ABG O2 Saturation ABG Base Excess ABG Hemoglobin ABG Oxyhemoglobin ABG Sodium ABG Potassium ABG Chloride ABG Glucose VBG pH Oxyhemoglobin Carboxyhemoglobin Sodium Potassium Chloride Carbon Dioxide BUN Creatinine Glucose POC Glucose Lactic Acid Calcium Magnesium AST ALT Ammonia Lactate Dehydrogenase Total Creatine Kinase CK-MB (CK-2) Troponin T NT-Pro-B Natriuret Pep Total Protein Albumin Triglycerides TSH Arterial Blood Glucose Arterial Blood Ionized Calcium Urine pH 9.0 H Urine WBC (Auto) 18.0 H Urine Creatinine 80.5 H 10/11/20 10/11/20 10/12/20 17:17 23:14 03:53 WBC RBC Hgb Hct RDW Lymph % (Auto) Lymph # (Auto) Seg Neutrophils % Lymphocytes % (Manual) Monocytes % (Manual) Seg Neutrophils # Seg Neutrophils # Man Lymphocytes # (Manual) Monocytes # (Manual) D-Dimer Heparin Anti-Xa Level ABG pH 7.545 H POC ABG pCO2 54.6 H POC ABG pO2 231.9 H ABG pO2 ABG HCO3 ABG O2 Saturation ABG Base Excess ABG Hemoglobin ABG Oxyhemoglobin 98.5 H ABG Sodium 150.5 H ABG Potassium 3.2 L ABG Chloride 96.0 L ABG Glucose 148 H VBG pH Oxyhemoglobin Carboxyhemoglobin Sodium Potassium Chloride Carbon Dioxide BUN Creatinine Glucose POC Glucose 121 H 135 H Lactic Acid Calcium Magnesium AST ALT Ammonia Lactate Dehydrogenase Total Creatine Kinase CK-MB (CK-2) Troponin T NT-Pro-B Natriuret Pep Total Protein Albumin Triglycerides TSH Arterial Blood Glucose 148 H Arterial Blood Ionized Calcium 3.8 L Urine pH Urine WBC (Auto) Urine Creatinine 10/12/20 10/12/20 10/12/20 04:00 05:10 05:12 WBC 14.3 H RBC Hgb 11.6 L Hct 35.2 L RDW Lymph % (Auto) Lymph # (Auto) Seg Neutrophils % Lymphocytes % (Manual) Monocytes % (Manual) Seg Neutrophils # Seg Neutrophils # Man Lymphocytes # (Manual) Monocytes # (Manual) D-Dimer Heparin Anti-Xa Level ABG pH POC ABG pCO2 POC ABG pO2 ABG pO2 ABG HCO3 ABG O2 Saturation ABG Base Excess ABG Hemoglobin ABG Oxyhemoglobin ABG Sodium ABG Potassium ABG Chloride ABG Glucose VBG pH Oxyhemoglobin Carboxyhemoglobin Sodium 155 H Potassium 3.3 L Chloride 97.9 L Carbon Dioxide 47 H* D BUN 50 H Creatinine 3.4 H Glucose 146 H POC Glucose 137 H Lactic Acid Calcium 8.0 L Magnesium AST ALT Ammonia Lactate Dehydrogenase Total Creatine Kinase CK-MB (CK-2) Troponin T 0.125 H* D NT-Pro-B Natriuret Pep Total Protein Albumin Triglycerides TSH Arterial Blood Glucose Arterial Blood Ionized Calcium Urine pH Urine WBC (Auto) Urine Creatinine 10/12/20 10/12/20 10/12/20 11:39 16:01 19:49 WBC RBC Hgb Hct RDW Lymph % (Auto) Lymph # (Auto) Seg Neutrophils % Lymphocytes % (Manual) Monocytes % (Manual) Seg Neutrophils # Seg Neutrophils # Man Lymphocytes # (Manual) Monocytes # (Manual) D-Dimer Heparin Anti-Xa Level ABG pH POC ABG pCO2 POC ABG pO2 ABG pO2 ABG HCO3 ABG O2 Saturation ABG Base Excess ABG Hemoglobin ABG Oxyhemoglobin ABG Sodium ABG Potassium ABG Chloride ABG Glucose VBG pH Oxyhemoglobin Carboxyhemoglobin Sodium 157 H Potassium 3.3 L Chloride Carbon Dioxide 47 H* BUN 52 H Creatinine 3.0 H Glucose 137 H POC Glucose 138 H 119 H Lactic Acid Calcium 8.0 L Magnesium AST ALT Ammonia Lactate Dehydrogenase Total Creatine Kinase CK-MB (CK-2) Troponin T NT-Pro-B Natriuret Pep Total Protein Albumin Triglycerides TSH Arterial Blood Glucose Arterial Blood Ionized Calcium Urine pH Urine WBC (Auto) Urine Creatinine 10/12/20 10/13/20 10/13/20 23:37 02:28 04:52 WBC RBC Hgb Hct RDW Lymph % (Auto) Lymph # (Auto) Seg Neutrophils % Lymphocytes % (Manual) Monocytes % (Manual) Seg Neutrophils # Seg Neutrophils # Man Lymphocytes # (Manual) Monocytes # (Manual) D-Dimer Heparin Anti-Xa Level ABG pH 7.485 H POC ABG pCO2 57.1 H POC ABG pO2 ABG pO2 ABG HCO3 ABG O2 Saturation ABG Base Excess ABG Hemoglobin ABG Oxyhemoglobin ABG Sodium 152.4 H ABG Potassium ABG Chloride ABG Glucose 129 H VBG pH Oxyhemoglobin Carboxyhemoglobin Sodium 155 H Potassium Chloride Carbon Dioxide 45 H* BUN 52 H Creatinine 2.7 H Glucose 121 H POC Glucose 131 H Lactic Acid Calcium Magnesium 2.40 H AST ALT Ammonia Lactate Dehydrogenase Total Creatine Kinase CK-MB (CK-2) Troponin T NT-Pro-B Natriuret Pep Total Protein Albumin Triglycerides 278 H TSH Arterial Blood Glucose 129 H Arterial Blood Ionized Calcium 4.1 L Urine pH Urine WBC (Auto) Urine Creatinine 10/13/20 10/13/20 10/13/20 04:52 05:13 11:37 WBC 14.7 H RBC Hgb 11.7 L Hct RDW 15.8 H Lymph % (Auto) Lymph # (Auto) Seg Neutrophils % Lymphocytes % (Manual) Monocytes % (Manual) Seg Neutrophils # Seg Neutrophils # Man Lymphocytes # (Manual) Monocytes # (Manual) D-Dimer Heparin Anti-Xa Level ABG pH POC ABG pCO2 POC ABG pO2 ABG pO2 ABG HCO3 ABG O2 Saturation ABG Base Excess ABG Hemoglobin ABG Oxyhemoglobin ABG Sodium ABG Potassium ABG Chloride ABG Glucose VBG pH Oxyhemoglobin Carboxyhemoglobin Sodium Potassium Chloride Carbon Dioxide BUN Creatinine Glucose POC Glucose 116 H 116 H Lactic Acid Calcium Magnesium AST ALT Ammonia Lactate Dehydrogenase Total Creatine Kinase CK-MB (CK-2) Troponin T NT-Pro-B Natriuret Pep Total Protein Albumin Triglycerides TSH Arterial Blood Glucose Arterial Blood Ionized Calcium Urine pH Urine WBC (Auto) Urine Creatinine 10/13/20 10/14/20 10/14/20 17:50 03:45 04:46 WBC 11.1 H RBC Hgb Hct RDW 15.3 H Lymph % (Auto) Lymph # (Auto) Seg Neutrophils % Lymphocytes % (Manual) Monocytes % (Manual) Seg Neutrophils # Seg Neutrophils # Man Lymphocytes # (Manual) Monocytes # (Manual) D-Dimer Heparin Anti-Xa Level ABG pH POC ABG pCO2 59.6 H POC ABG pO2 ABG pO2 ABG HCO3 ABG O2 Saturation ABG Base Excess ABG Hemoglobin ABG Oxyhemoglobin ABG Sodium 151.4 H ABG Potassium 3.3 L ABG Chloride ABG Glucose 138 H VBG pH Oxyhemoglobin Carboxyhemoglobin 1.6 H Sodium Potassium Chloride Carbon Dioxide BUN Creatinine Glucose POC Glucose 140 H Lactic Acid Calcium Magnesium AST ALT Ammonia Lactate Dehydrogenase Total Creatine Kinase CK-MB (CK-2) Troponin T NT-Pro-B Natriuret Pep Total Protein Albumin Triglycerides TSH Arterial Blood Glucose 138 H Arterial Blood Ionized Calcium 4.5 L Urine pH Urine WBC (Auto) Urine Creatinine 10/14/20 10/14/20 10/14/20 04:46 05:10 11:11 WBC RBC Hgb Hct RDW Lymph % (Auto) Lymph # (Auto) Seg Neutrophils % Lymphocytes % (Manual) Monocytes % (Manual) Seg Neutrophils # Seg Neutrophils # Man Lymphocytes # (Manual) Monocytes # (Manual) D-Dimer Heparin Anti-Xa Level ABG pH POC ABG pCO2 POC ABG pO2 ABG pO2 ABG HCO3 ABG O2 Saturation ABG Base Excess ABG Hemoglobin ABG Oxyhemoglobin ABG Sodium ABG Potassium ABG Chloride ABG Glucose VBG pH Oxyhemoglobin Carboxyhemoglobin Sodium 152 H Potassium 3.5 L Chloride Carbon Dioxide 38 H D BUN 46 H Creatinine 2.3 H Glucose 127 H POC Glucose 116 H 114 H Lactic Acid Calcium Magnesium AST ALT Ammonia Lactate Dehydrogenase Total Creatine Kinase CK-MB (CK-2) Troponin T NT-Pro-B Natriuret Pep Total Protein Albumin Triglycerides TSH Arterial Blood Glucose Arterial Blood Ionized Calcium Urine pH Urine WBC (Auto) Urine Creatinine 10/14/20 10/14/20 10/15/20 18:53 23:23 04:12 WBC RBC Hgb Hct RDW Lymph % (Auto) Lymph # (Auto) Seg Neutrophils % Lymphocytes % (Manual) Monocytes % (Manual) Seg Neutrophils # Seg Neutrophils # Man Lymphocytes # (Manual) Monocytes # (Manual) D-Dimer Heparin Anti-Xa Level ABG pH POC ABG pCO2 POC ABG pO2 ABG pO2 ABG HCO3 ABG O2 Saturation ABG Base Excess ABG Hemoglobin ABG Oxyhemoglobin ABG Sodium ABG Potassium ABG Chloride ABG Glucose VBG pH Oxyhemoglobin Carboxyhemoglobin Sodium 149 H Potassium 3.2 L Chloride Carbon Dioxide 37 H BUN 40 H Creatinine 2.0 H Glucose 124 H POC Glucose 128 H 113 H Lactic Acid Calcium Magnesium AST ALT Ammonia Lactate Dehydrogenase Total Creatine Kinase CK-MB (CK-2) Troponin T NT-Pro-B Natriuret Pep Total Protein Albumin Triglycerides TSH Arterial Blood Glucose Arterial Blood Ionized Calcium Urine pH Urine WBC (Auto) Urine Creatinine 10/15/20 10/15/20 04:22 11:39 WBC RBC Hgb Hct RDW Lymph % (Auto) Lymph # (Auto) Seg Neutrophils % Lymphocytes % (Manual) Monocytes % (Manual) Seg Neutrophils # Seg Neutrophils # Man Lymphocytes # (Manual) Monocytes # (Manual) D-Dimer Heparin Anti-Xa Level ABG pH POC ABG pCO2 POC ABG pO2 ABG pO2 115.0 H ABG HCO3 38.1 H ABG O2 Saturation ABG Base Excess 11.3 H ABG Hemoglobin 11.0 L ABG Oxyhemoglobin ABG Sodium ABG Potassium ABG Chloride ABG Glucose VBG pH Oxyhemoglobin Carboxyhemoglobin Sodium Potassium Chloride Carbon Dioxide BUN Creatinine Glucose POC Glucose 123 H Lactic Acid Calcium Magnesium AST ALT Ammonia Lactate Dehydrogenase Total Creatine Kinase CK-MB (CK-2) Troponin T NT-Pro-B Natriuret Pep Total Protein Albumin Triglycerides TSH Arterial Blood Glucose Arterial Blood Ionized Calcium Urine pH Urine WBC (Auto) Urine Creatinine Chest x-ray: image reviewed Allied health notes reviewed: nursing
--- NOTE | 2020-10-15 15:40 | Cat Scan Report ---
CT ABDOMEN WITHOUT CONTRAST INDICATION: High gastric output TECHNICAL: Multiple axial CT images of the abdomen were acquired without intravenous contrast. Sagit michael and coronal reformats were obtained. All CTs at this facility utilize dose reduction techniques including automated exposure control, iterative reconstruction and weight based dosing when appropria te to reduce patient radiation dose to as low as reasonable achievable. COMPARISON: No relevant prior studies are available for comparison FINDINGS: Limited imaging of the bilateral lung bases demonstrates cardiomegaly. There is a small hiatal hernia . ABDOMEN: An esophagogastric tube is present with distal tip within the mid stomach. The liver, gallbladder, sp [place], pancreas, bilateral adrenal glands and bilateral kidneys show no acute abnormality. The abdomin al aorta is normal in caliber with scattered atherosclerotic calcifications. There is no evidence to suggest bowel obstruction within the visualized abdomen. BONES AND SOFT TISSUES: No significant abnormality. IMPRESSION: 1. No CT evidence of acute inflammatory or obstructive process within the abdomen. 2. Hiatal hernia. Signer Name: Lolly Patricio MD Signed: 10/15/2020 3:35 PM Workstation Name: [id number]
[2020-10-15] MEDS ORDERED: TOTAL PARENTERAL NUTRITION 2,016 ML IV SCH (20:00)
[2020-10-15] MEDS: hydrALAZINE 20 MG/1 ML INJ IV PRN (20:54)
[2020-10-15] MEDS: CEFEPIME/NS 2 GM/100 ML 2 GM/100 ML BAG IV SCH (21:00)
--- NOTE | 2020-10-15 21:59 | Progress Note ---
Assessment and Plan Continue volume optimization and electrolyte correction per Nephro. May consider IV Cardene gtt if needed for BP optimization when weaning off sedation. Otherwise will optimize antihypertensive regimen when cleared to resume oral intake per GI. Continue supportive measures. Overall guarded prognosis. Pt seen in conjunction with Dr. Verde, who agrees with the assessment and plan of care. - Patient Problems (1) Cardiopulmonary arrest with successful resuscitation Current Visit: Yes Status: Acute (2) Acute respiratory failure Current Visit: Yes Status: Acute Qualifiers: Respiratory failure complication: hypoxia and hypercapnia Qualified Code(s): J96.01 - Acute respiratory failure with hypoxia; J96.02 - Acute respiratory failure with hypercapnia (3) Sepsis Current Visit: Yes Status: Acute (4) Bilateral pneumonia Current Visit: Yes Status: Acute (5) MOE (acute kidney injury) Current Visit: Yes Status: Acute (6) Hypokalemia Current Visit: Yes Status: Acute (7) Acute heart failure with preserved ejection fraction (HFpEF) Current Visit: Yes Status: Acute (8) Accelerated hypertension Current Visit: Yes Status: Acute (9) NSTEMI (non-ST elevated myocardial infarction) Current Visit: Yes Status: Acute Plan to address problem: Type 2 (10) GI bleed Current Visit: Yes Status: Acute (11) Elevated LFTs Current Visit: Yes Status: Acute (12) Hypertriglyceridemia Current Visit: Yes Status: Acute (13) Seizure Current Visit: Yes Status: Suspected Subjective Date of service: 10/15/20 Principal diagnosis: Cardiac Arrest, Acute Resp Fail, Septic Shock, PNA Interval history: Remains intubated/on mech vent. BP better this AM; however, noted to be high off sedation. SR 90s w/PACs. Objective Last Vital Signs Temp 98.0 F 10/15/20 20:00 Pulse 89 10/15/20 20:54 Resp 18 10/15/20 18:30 BP 192/107 10/15/20 20:54 Pulse Ox 95 10/15/20 20:17 - Physical Examination General: Other (intubated, sedated) HEENT: Positive: Other (intubated, sedated) Neck: Positive: neck supple, trachea midline Cardiac: Positive: Reg Rate and Rhythm, S1/S2 Lungs: Positive: Decreased Breath Sounds Neuro: Positive: Other (intubated, sedated) Abdomen: Positive: Soft Skin: Negative: Rash Extremities: Present: upper extr. pulses, lower extr. pulses. Absent: edema - Labs and Meds Comprehensive Metabolic Panel 10/15/20 Range/Units 04:12 Sodium 149 H (137-145) mmol/L Potassium 3.2 L (3.6-5.0) mmol/L Chloride 103.9 (98-107) mmol/L Carbon Dioxide 37 H (22-30) mmol/L BUN 40 H (9-20) mg/dL Creatinine 2.0 H (0.8-1.3) mg/dL Glucose 124 H (75-100) mg/dL Calcium 9.1 (8.4-10.2) mg/dL - Imaging and Cardiology EKG: report reviewed, image reviewed Echo: report reviewed (10/10/2020 - mod LVH, EF 55-60%, mild diastolic dysfunction) - Telemetry EKG Rhythm: Sinus Rhythm - EKG Sinus rhythms and dysrhythmias: sinus rhythm Supraventricular dysrhythmia: atrial premature complexe Repolarization changes or abnormalities: ST suggestive of injury, Q-T interval prolongation - Allied health notes Allied health notes reviewed: nursing
--- NOTE | 2020-10-15 23:08 | Progress Note ---
Assessment and Plan Critical care statement The high probability OF a clinically significant sudden or life-threatening deterioration of the cardiorespiratory system and endocrine system required my full and direct attention, intervention and postoperative management. The aggregate critical care time was 40 minutes. The time is in addition to time spent performing reported procedures but includes the followin: Data review and interpretation 2: Patient assessment and monitoring of vital signs 3: Documentation 4:: Medication orders and management - Patient Problems (1) Cardiac arrest Current Visit: Yes Status: Acute Plan to address problem: Patient s/p cardiac arrest x2 in the emergency room Patient is hypertensive and bradycardic Patient intubated and central line placed (2) Acute respiratory failure with hypoxia and hypercarbia Current Visit: Yes Status: Acute Plan to address problem: Patient intubated and continue vent support Cottage Master consult appreciated (3) MOE (acute kidney injury) Current Visit: Yes Status: Acute Plan to address problem: IV fluids for now (4) Lactic acidosis Current Visit: Yes Status: Acute Plan to address problem: Possible sepsis versus lactic acid elevation secondary to cardiac arrest We'll treat with broad-spectrum antibiotics especially cefepime and vancomycin (5) Bilateral pneumonia Current Visit: Yes Status: Acute Plan to address problem: Possible Covid pneumonia Treat as community-acquired pneumonia for now Threesepsis for now Pressors for now ID consult requested (6) Pneumonia due to COVID-19 virus Current Visit: Yes Status: Acute Plan to address problem: A high possibility Coronavirus PCR to be done IV Decadron initiated (7) Hypotension Current Visit: Yes Status: Acute (8) Sepsis with hypotension Current Visit: Yes Status: Acute Plan to address problem: Treat sepsis and hypotension with broad-spectrum antibiotics and pressors (9) Hypokalemia Current Visit: Yes Status: Acute Plan to address problem: Supplemented (10) DVT prophylaxis Current Visit: Yes Status: Acute Plan to address problem: On heparin and GI prophylaxis Subjective Date of service: 10/15/20 Principal diagnosis: Cardiac Arrest, Acute Resp Fail, Septic Shock, PNA Interval history: History Interval history: This is a 55-year-old male with hypertension, asthma, obesity in the emergency by presents the emergency department on 10/10 after receiving a Covid vaccine being found unresponsive in his car in the emergency room by with no pulse and ACLS protocol was initiated from his car to emergency room #21 where it was continued. Patient was intubated after ROSC was achieved and a central line was placed and the patient was initiated on pressors. In the emergency room patient seems to have seizure-like activity and then collapsed and was unresponsive with no palpable pulse and ACLS was again initiated patient with achievement of ROSC. Patient again coded with ACLS protocol in the CT room. Upon arrival to the ICU patient again coded and ROSC was achieved and he was placed on epinephrine, Lasix, heparin and sodium bicarbonate drip and sedated with propofol. An NG tube was placed, A-line was placed. Patient was admitted to the hospitalist service with consult to [facility], nephrology, infectious disease and cardiology. 10/11: Patient COVID-19 PCR is pending and he remains on mechanical ventilation, examination on assist control 400/30/12/0.95. Patient is scheduled for an echocardiogram and we will obtain bilateral lower extremity Doppler ultrasound given elevated D-dimer. Patient was supposed to have a CTA chest when he coded yesterday. We will begin trickle feeding. This morning patient was on a heparin drip and was noted to have bloody drainage from his NG tube. Heparin drip was discontinued. 10/12: Patient remains on propofol and Lasix drip at the time my examination and he is on assist control 400/25/12/0.60. Patient is hypokalemic this morning which was repleted. Nephrlogy discontinued Lasix drip and Diamox. Patient is hypertensive and has been started on hydralazine and beta-shital IV. He has been titrated off his vasopressors since yesterday. Vancomycin discontinued. Patient is currently on cefepime and azithromycin. 10/13: Sedation vacation attempted today and patient was not responsive to verbal or painful stimuli, does not track or focus or follow commands. This morning the patient has some respiratory alkalosis on ABG, hypernatremia and metabolic alkalosis on BMP. His kidney functions has improved slightly. Patient still has leukocytosis and infectious disease was like to continue antibiotic therapy. GI evaluated the patient yesterday and started the patient on PPI does not plan to scope at this time. At the time my examination patient assist-control 400/20/12/0.40 and sedated on propofol at 20. 4/2: GI has recommended a CT abdomen since there is increased output from OG tu be and an MRI brain without contrast has been ordered per neurology recommendations. EEG is pending and the patient has been started on Keppra per neurology.. Nutrition has been consulted for initiation of parenteral nutrition. Patient remains sedated with propofol and his hypernatremia, leukocytosis, acute kidney injury and metabolic alkalosis is improving. Patient has hypokalemia today which was repleted. At the time of my examination patient was on assist control 400/14/10/0.40 and CCM has dropped his rate to 12 and PEEP to 8. We have labs ordered for a.m. He was given a clonidine patch given persistent hypertension and he remains on D5 water per nephrology. 10/15 Same condition Objective - Exam Narrative Exam: Intubated - Constitutional Vitals: Vital Signs - 12hr 10/15/20 10/15/20 10/15/20 11:13 11:15 11:30 Temperature Pulse Rate 85 97 H 90 Pulse Rate [ From Monitor] Respiratory 24 24 Rate Blood Pressure 150/86 197/95 177/94 O2 Sat by Pulse 99 100 99 Oximetry 10/15/20 10/15/20 10/15/20 11:31 11:45 12:00 Temperature 99 F Pulse Rate 92 H 75 86 Pulse Rate [ From Monitor] Respiratory 25 H 23 Rate Blood Pressure 177/94 160/93 150/86 O2 Sat by Pulse 100 98 Oximetry 10/15/20 10/15/20 10/15/20 12:15 12:30 12:45 Temperature Pulse Rate 82 78 81 Pulse Rate [ From Monitor] Respiratory 23 21 15 Rate Blood Pressure 152/92 148/72 143/77 O2 Sat by Pulse 99 99 99 Oximetry 10/15/20 10/15/20 10/15/20 13:00 13:15 13:31 Temperature Pulse Rate 80 91 H 84 Pulse Rate [ From Monitor] Respiratory 22 20 24 Rate Blood Pressure 152/77 150/87 160/103 O2 Sat by Pulse 99 98 98 Oximetry 10/15/20 10/15/20 10/15/20 13:45 14:00 14:15 Temperature Pulse Rate 89 86 86 Pulse Rate [ From Monitor] Respiratory 23 26 H 25 H Rate Blood Pressure 169/102 162/91 173/96 O2 Sat by Pulse 92 94 93 Oximetry 10/15/20 10/15/20 10/15/20 14:30 15:15 15:31 Temperature Pulse Rate 90 98 H 90 Pulse Rate [ From Monitor] Respiratory 24 19 22 Rate Blood Pressure 157/94 157/94 132/70 O2 Sat by Pulse 94 99 94 Oximetry 10/15/20 10/15/20 10/15/20 15:45 15:55 16:00 Temperature 98.8 F Pulse Rate 92 H 93 H 86 Pulse Rate [ 97 H From Monitor] Respiratory 19 20 Rate Blood Pressure 127/71 127/71 O2 Sat by Pulse 93 94 94 Oximetry 10/15/20 10/15/20 10/15/20 16:01 16:15 16:30 Temperature Pulse Rate 97 H 90 86 Pulse Rate [ From Monitor] Respiratory 19 22 18 Rate Blood Pressure 136/70 136/70 144/86 O2 Sat by Pulse 94 94 93 Oximetry 10/15/20 10/15/20 10/15/20 16:45 17:00 17:15 Temperature Pulse Rate 81 83 88 Pulse Rate [ From Monitor] Respiratory 25 H 16 17 Rate Blood Pressure 154/91 157/86 155/87 O2 Sat by Pulse 95 95 95 Oximetry 10/15/20 10/15/20 10/15/20 17:31 17:35 17:45 Temperature Pulse Rate 87 84 82 Pulse Rate [ From Monitor] Respiratory 17 17 Rate Blood Pressure 150/86 150/86 142/88 O2 Sat by Pulse 96 96 Oximetry 10/15/20 10/15/20 10/15/20 17:48 18:00 18:15 Temperature Pulse Rate 84 80 87 Pulse Rate [ From Monitor] Respiratory 16 19 Rate Blood Pressure 142/88 136/75 155/60 O2 Sat by Pulse 96 97 Oximetry 10/15/20 10/15/20 10/15/20 18:30 18:45 19:00 Temperature Pulse Rate 80 80 79 Pulse Rate [ From Monitor] Respiratory 18 19 18 Rate Blood Pressure 137/71 142/73 148/76 O2 Sat by Pulse 95 95 95 Oximetry 10/15/20 10/15/20 10/15/20 19:15 19:31 19:45 Temperature Pulse Rate 88 86 86 Pulse Rate [ From Monitor] Respiratory 20 20 22 Rate Blood Pressure 142/73 181/102 187/109 O2 Sat by Pulse 96 95 96 Oximetry 10/15/20 10/15/20 10/15/20 20:00 20:15 20:17 Temperature 98.0 F Pulse Rate 84 86 86 Pulse Rate [ From Monitor] Respiratory 22 21 Rate Blood Pressure 176/104 199/118 199/118 O2 Sat by Pulse 95 96 95 Oximetry 10/15/20 10/15/20 10/15/20 20:31 20:45 20:54 Temperature Pulse Rate 86 91 H 89 Pulse Rate [ From Monitor] Respiratory 21 21 Rate Blood Pressure 193/98 192/107 192/107 O2 Sat by Pulse 94 95 Oximetry 10/15/20 10/15/20 10/15/20 21:00 21:15 21:30 Temperature Pulse Rate 85 89 86 Pulse Rate [ From Monitor] Respiratory 20 22 23 Rate Blood Pressure 183/100 186/105 196/102 O2 Sat by Pulse 95 95 95 Oximetry 10/15/20 10/15/20 10/15/20 21:45 22:00 22:15 Temperature Pulse Rate 90 97 H 92 H Pulse Rate [ From Monitor] Respiratory 22 23 23 Rate Blood Pressure 190/98 174/108 185/89 O2 Sat by Pulse 95 96 96 Oximetry 10/15/20 10/15/20 10/15/20 22:30 22:45 23:04 Temperature Pulse Rate 93 H 88 96 H Pulse Rate [ From Monitor] Respiratory 23 20 Rate Blood Pressure 187/100 188/100 187/110 O2 Sat by Pulse 96 95 Oximetry General appearance: Present: mild distress, well-nourished - EENT Eyes: PERRL, EOM intact ENT: hearing intact, clear oral mucosa Ears: bilateral: normal - Neck Neck: supple, normal ROM - Respiratory Respiratory effort: normal Respiratory: bilateral: CTA - Breasts Breasts: normal - Cardiovascular Heart rate: 78 Rhythm: regular Heart Sounds: Present: S1 & S2. Absent: gallop, rub Extremities: pulses intact, No edema, normal color, Full ROM - Gastrointestinal General gastrointestinal: Present: soft, non-tender, non-distended, normal bowel sounds - Genitourinary Male genitourinary: normal - Integumentary Integumentary: clear, warm, dry - Musculoskeletal Musculoskeletal: 1, strength equal bilaterally - Neurologic Neurologic: moves all extremities - Psychiatric Psychiatric: memory intact, appropriate mood/affect, intact judgment & insight - Labs CBC & Chem 7: 10/18/20 03:27 10/18/20 03:27 Labs: Abnormal lab results 10/14/20 10/15/20 10/15/20 Range/Units 23:23 04:12 04:22 ABG pO2 115.0 H (80.0-90.0) mm Hg ABG HCO3 38.1 H (20.0-26.0) mmol/L ABG Base Excess 11.3 H (-2.0-3.0) mmol/L ABG Hemoglobin 11.0 L (14.0-18.0) gm/dl Sodium 149 H (137-145) mmol/L Potassium 3.2 L (3.6-5.0) mmol/L Carbon Dioxide 37 H (22-30) mmol/L BUN 40 H (9-20) mg/dL Creatinine 2.0 H (0.8-1.3) mg/dL Glucose 124 H (75-100) mg/dL POC Glucose 113 H (70-105) mg/dL 10/15/20 10/15/20 Range/Units 11:39 17:36 ABG pO2 (80.0-90.0) mm Hg ABG HCO3 (20.0-26.0) mmol/L ABG Base Excess (-2.0-3.0) mmol/L ABG Hemoglobin (14.0-18.0) gm/dl Sodium (137-145) mmol/L Potassium (3.6-5.0) mmol/L Carbon Dioxide (22-30) mmol/L BUN (9-20) mg/dL Creatinine (0.8-1.3) mg/dL Glucose (75-100) mg/dL POC Glucose 123 H 118 H (70-105) mg/dL HEART Score - HEART Score EKG: Non-specific Age: 45-65 Troponin: Troponin T 0.125 ng/mL (0.00-0.029) H* D 10/12/20 04:00 Troponin: 1-3x normal limit - Critical Actions Critical Actions: 4-6 pts:12-16.6% risk of adverse cardiac event. Should be admitted
[2020-10-16 03:59] LABS: Hematocrit 38.5 % (35.5-45.6); Hemoglobin 12.5 gm/dl (11.8-15.2)
[2020-10-16 04:18] LABS: BUN/Creatinine Ratio 26; Blood Urea Nitrogen 37 mg/dL (9-20); Calcium 9.1 mg/dL (8.4-10.2); Hemolysis Index 29
--- NOTE | 2020-10-16 04:38 | XRay Report ---
CHEST 1 VIEW 10/16/2020 2:39 AM INDICATION / CLINICAL INFORMATION: follow up respiratory failure. COMPARISON: 10/15/2020 FINDINGS: SUPPORT DEVICES: Endotracheal tube and nasogastric tube appear unchanged HEART / MEDIASTINUM: Unchanged LUNGS / PLEURA: Focal focal opacity in the right midlung zone persists. There is mild increase in the interstitial markings in the perihilar location bilaterally.. No pneumothorax. ADDITIONAL FINDINGS: No significant additional findings. IMPRESSION: 1. There is mild increase in perihilar interstitial markings bilaterally suggesting mild edema. There is no other significant change. Signer Name: Moris Kerr MD Signed: 10/16/2020 4:33 AM Workstation Name: [id number]
[2020-10-16] MEDS: METOPROLOL TARTRATE 5 MG/5 ML INJ IV SCH ×3 (05:03→20:10)
[2020-10-16] MEDS: hydrALAZINE 20 MG/1 ML INJ IV SCH ×2 (05:03→13:59)
[2020-10-16] MEDS: levETIRAcetam 500 MG in DEXTROSE 5% IN WATER 100 ML IV SCH ×2 (06:01→18:03)
[2020-10-16 06:06] LABS: ABG Base Excess 9.5 mmol/L (-2.0-3.0); ABG HCO3 35.1 mmol/L (20.0-26.0); ABG Methemoglobin 0.5 % (0.0-1.5); ABG Oxygen Saturation 97.7 % (95.0-99.0); ABG PCO2 55.5 mm Hg; ABG PH 7.419 pH Units (7.350-7.450); ABG PO2 104.5 mm Hg (80.0-90.0)
--- NOTE | 2020-10-16 10:18 | Gastroenterology Progress Note ---
Assessment and Plan 1. UGI bleed - suspect from OG related trauma. non-bloody output now and H/h remains normal. cont PPI BID dosing. no plans for endoscopy unless change in clinical course/further signs of bleeding. -ct scan findings reviewed, no obstructive process or other acute findings. okay to start trial of tube feeds from gi stand point will sign off, please call as needed. Subjective Date of service: 10/16/20 Principal diagnosis: Cardiac Arrest, Acute Resp Fail, Septic Shock, PNA Interval history: no events/gi bleeding episodes overnight. non bloody output from OG Objective - Exam Narrative Exam: Gen: intubated HENT: OG tube with non-bloody/gastric contents output Abd: soft, nd - Constitutional Vitals: Temp Pulse Resp BP Pulse Ox 98.9 F 83 19 118/62 98 10/16/20 07:51 10/16/20 10:15 10/16/20 10:15 10/16/20 10:15 10/16/20 10:15 - Labs CBC & Chem 7: 10/16/20 03:13 10/16/20 03:13 Labs: Laboratory Results - last 24 hr 10/15/20 10/15/20 10/15/20 11:39 17:36 23:18 Hgb Hct Plt Count ABG pH ABG pCO2 ABG pO2 ABG HCO3 ABG O2 Saturation ABG O2 Content ABG Base Excess ABG Hemoglobin ABG Carboxyhemoglobin ABG Methemoglobin Oxyhemoglobin FiO2 Sodium Potassium Chloride Carbon Dioxide Anion Gap BUN Creatinine Estimated GFR BUN/Creatinine Ratio Glucose POC Glucose 123 H 118 H 135 H Calcium Phosphorus Magnesium 10/16/20 10/16/20 10/16/20 03:13 03:13 05:10 Hgb 12.5 Hct 38.5 Plt Count 161 ABG pH 7.419 ABG pCO2 55.5 ABG pO2 104.5 H ABG HCO3 35.1 H ABG O2 Saturation 97.7 ABG O2 Content 10.8 ABG Base Excess 9.5 H ABG Hemoglobin 7.9 L ABG Carboxyhemoglobin 1.9 ABG Methemoglobin 0.5 Oxyhemoglobin 95.3 FiO2 35 Sodium 145 Potassium 3.3 L Chloride 102.1 Carbon Dioxide 33 H Anion Gap 13 BUN 37 H Creatinine 1.4 H Estimated GFR > 60 BUN/Creatinine Ratio 26 Glucose 148 H POC Glucose Calcium 9.1 Phosphorus 3.20 Magnesium 2.40 H
--- NOTE | 2020-10-16 10:26 | Progress Note ---
Assessment and Plan 1. Acute kidney injury: Vasomotor MOE in the setting of Cardiac arrest and shock. Renal US negative for hydro. Monitor renal function. Creatinine level improving. Avoid nephrotoxic agents. Meds dosage based on GFR. 2. FEN: Volume overload, improved, monitor. Hypokalemia, replete K, monitor. Hypernatremia, continue IV D5W, monitor. On Diuril. Metabolic alkalosis, improving, monitor. Monitor lytes and volume status. 3. Acute hypoxic respiratory failure, POA: 2/2 PNA and CHF. COVID test negative. Intubated on vent. D/w FOOD AND NUTRITION SERVICES ASSISTANT (10/14) to proceed with CTA chest to r/o PE if needed. 4. Sepsis, POA: 2/2 PNA. Abx. 5. NSTEMI type II: Post cardiac arrest EKG showed no acute ischemic changes. Was on Heparin gtt. Followed by Cards. 6. Acute CHF: Echo showed Normal EF and mild DD. 7. S/p Cardiac arrest. 8. GI bleed: Followed by GI. 9. Elevated Transaminases: Trend. 10. HTN: Monitor. Subjective: Patient was seen and examined at the bedside. Objective: General appearance: well-developed, appears stated age, intubated, on vent HEENT: ATNC, MONTSE Neck: trachea midline Respiratory: ctab Heart: regular, S1S2, no murmur Gastrointestinal: soft, normoactive bowel sounds, not tender Integumentary: no rash, warm and dry Ext: no edema Neurologic: not responding Musculoskeletal: no obvious deformity : Tuttle catheter Subjective Date of service: 10/16/20 Principal diagnosis: Cardiac Arrest, Acute Resp Fail, Septic Shock, PNA Objective - Vital Signs Vital signs: Vital Signs - 12hr 10/15/20 10/15/20 10/15/20 22:30 22:45 22:55 Temperature Pulse Rate 93 H 88 96 H Pulse Rate [ From Monitor] Respiratory 23 20 24 Rate Blood Pressure 187/100 188/100 188/100 O2 Sat by Pulse 96 95 96 Oximetry 10/15/20 10/15/20 10/15/20 23:01 23:04 23:15 Temperature Pulse Rate 92 H 96 H 83 Pulse Rate [ From Monitor] Respiratory 23 21 Rate Blood Pressure 187/110 187/110 156/83 O2 Sat by Pulse 97 97 Oximetry 04/10/0210/15/20 10/15/20 23:31 23:42 23:45 Temperature 97.9 F Pulse Rate 82 83 Pulse Rate [ From Monitor] Respiratory 21 23 Rate Blood Pressure 144/103 175/95 O2 Sat by Pulse 96 96 Oximetry 10/16/20 10/16/20 10/16/20 00:00 00:01 00:15 Temperature Pulse Rate 86 85 82 Pulse Rate [ From Monitor] Respiratory 19 20 Rate Blood Pressure 156/85 153/78 O2 Sat by Pulse 95 96 Oximetry 10/16/20 10/16/20 10/16/20 00:31 00:45 01:01 Temperature Pulse Rate 84 87 85 Pulse Rate [ From Monitor] Respiratory 22 22 24 Rate Blood Pressure 181/94 174/98 190/108 O2 Sat by Pulse 95 95 97 Oximetry 10/16/20 10/16/20 10/16/20 01:15 01:31 01:45 Temperature Pulse Rate 85 84 92 H Pulse Rate [ From Monitor] Respiratory 24 22 24 Rate Blood Pressure 203/102 205/97 186/93 O2 Sat by Pulse 98 97 97 Oximetry 10/16/20 10/16/20 10/16/20 02:01 02:15 02:30 Temperature Pulse Rate 86 87 87 Pulse Rate [ From Monitor] Respiratory 22 24 23 Rate Blood Pressure 174/94 183/82 O2 Sat by Pulse 97 97 96 Oximetry 10/16/20 10/16/20 10/16/20 02:46 03:00 03:16 Temperature Pulse Rate 89 91 H 90 Pulse Rate [ From Monitor] Respiratory 24 43 H 22 Rate Blood Pressure 185/98 176/108 O2 Sat by Pulse 93 97 91 Oximetry 10/16/20 10/16/20 10/16/20 03:30 03:41 03:45 Temperature Pulse Rate 98 H 92 H 94 H Pulse Rate [ From Monitor] Respiratory 22 28 H Rate Blood Pressure 194/97 O2 Sat by Pulse 93 98 Oximetry 10/16/20 10/16/20 10/16/20 04:00 04:15 04:30 Temperature Pulse Rate 107 H 92 H 98 H Pulse Rate [ From Monitor] Respiratory 25 H 25 H 24 Rate Blood Pressure 194/97 180/90 O2 Sat by Pulse 98 99 96 Oximetry 10/16/20 10/16/20 10/16/20 04:35 04:46 05:00 Temperature Pulse Rate 91 H 92 H 92 H Pulse Rate [ From Monitor] Respiratory 25 H 23 Rate Blood Pressure 209/104 209/104 O2 Sat by Pulse 96 99 99 Oximetry 10/16/20 10/16/20 10/16/20 05:03 05:15 05:30 Temperature Pulse Rate 95 H 82 80 Pulse Rate [ From Monitor] Respiratory 21 23 Rate Blood Pressure 235/139 208/88 O2 Sat by Pulse 97 98 Oximetry 10/16/20 10/16/20 10/16/20 05:45 06:00 06:16 Temperature Pulse Rate 85 84 83 Pulse Rate [ From Monitor] Respiratory 23 23 21 Rate Blood Pressure 177/66 127/51 O2 Sat by Pulse 97 98 98 Oximetry 10/16/20 10/16/20 10/16/20 06:30 06:46 07:00 Temperature Pulse Rate 82 92 H 94 H Pulse Rate [ From Monitor] Respiratory 23 25 H 30 H Rate Blood Pressure 160/91 O2 Sat by Pulse 98 98 100 Oximetry 10/16/20 10/16/20 10/16/20 07:16 07:30 07:45 Temperature Pulse Rate 100 H 92 H 86 Pulse Rate [ From Monitor] Respiratory 20 19 19 Rate Blood Pressure 158/61 137/67 152/61 O2 Sat by Pulse 98 98 99 Oximetry 10/16/20 10/16/20 10/16/20 07:51 07:52 08:00 Temperature 98.9 F Pulse Rate 86 87 Pulse Rate [ 86 From Monitor] Respiratory 20 Rate Blood Pressure 152/61 143/68 O2 Sat by Pulse 95 99 Oximetry 10/16/20 10/16/20 10/16/20 08:16 08:30 08:46 Temperature Pulse Rate 87 85 87 Pulse Rate [ From Monitor] Respiratory 21 23 20 Rate Blood Pressure 161/84 164/90 140/70 O2 Sat by Pulse 97 97 97 Oximetry 10/16/20 10/16/20 10/16/20 09:00 09:16 09:30 Temperature Pulse Rate 83 91 H 86 Pulse Rate [ From Monitor] Respiratory 21 16 20 Rate Blood Pressure 134/60 123/65 123/65 O2 Sat by Pulse 97 96 97 Oximetry 10/16/20 10/16/20 10/16/20 09:45 10:00 10:15 Temperature Pulse Rate 87 82 83 Pulse Rate [ From Monitor] Respiratory 19 20 19 Rate Blood Pressure 112/57 127/67 118/62 O2 Sat by Pulse 94 97 98 Oximetry - Lab 10/16/20 03:13 10/16/20 03:13 Most recent lab results ABG pH 7.419 pH Units (7.350-7.450) 10/16/20 05:10 ABG pCO2 55.5 mm Hg 10/16/20 05:10 ABG pO2 104.5 mm Hg (80.0-90.0) H 10/16/20 05:10 ABG HCO3 35.1 mmol/L (20.0-26.0) H 10/16/20 05:10 ABG O2 Saturation 97.7 % (95.0-99.0) 10/16/20 05:10 Calcium 9.1 mg/dL (8.4-10.2) 10/16/20 03:13 Phosphorus 3.20 mg/dL (2.5-4.5) 10/16/20 03:13 Magnesium 2.40 mg/dL (1.7-2.3) H 10/16/20 03:13 Urine Creatinine 80.5 mg/dL (0.1-20.0) H 10/11/20 13:30 Urine Sodium 110 mmol/L 10/11/20 13:30 Medications & Allergies - Medications Allergies/Adverse Reactions: Allergies No Known Allergies Allergy (Unverified 07/06/13 15:19) Home Medications: Home Medications Medication Instructions Recorded Confirmed Last Taken Type Albuterol Sulfate [Ventolin HFA] 2 puff IH Q4H PRN #1 hfa.aer.ad 07/06/13 Unknown Rx Prednisone 40 mg PO QDAY #8 tablet 07/06/13 Unknown Rx Albuterol Mdi (or & Nicu Only) 2 puff IH Q4H PRN #1 inha 07/07/13 Unknown Rx [ProAir HFA Inhaler] Azithromycin [Zithromax Z-KYLE] 500 mg PO QDAY #5 tab 07/07/13 Unknown Rx HYDROcodone/APAP 5-325 [Perry 2 each PO Q6H PRN #30 tablet 07/07/13 Unknown Rx 5-325 mg TAB] predniSONE [Deltasone] 40 mg PO QDAY #10 tablet 07/07/13 Unknown Rx Active Medications: Generic Name Dose Route Start Last Admin Trade Name Freq PRN Reason Stop Dose Admin Acetaminophen 650 mg 10/10/20 21:51 Acetaminophen 325 Mg Tab PO Q4H PRN Pain MILD(1-3)/Fever >100.5/SALVADOR Acetaminophen 650 mg 10/11/20 11:24 10/11/20 12:05 Acetaminophen 650 Mg Rect Supp OH 650 mg Q6H PRN Administration Fever >101 Albuterol 2.5 mg 10/11/20 13:12 Albuterol 2.5 Mg/3 Ml Nebu IH Q6HRT PRN Shortness Of Breath Lipase/Protease/Amylase 1 each 10/10/20 22:18 Lipase 10,500/Protease 25,000/Amylase 43,750 (Units) Dr Santana FEEDTUBE PRN PRN For Clogged Feeding Tube Chlorothiazide Sodium 500 mg 10/14/20 10:00 10/15/20 09:35 Chlorothiazide 500 Mg Vial IV 500 mg QDAY PEPITO Administration Clonidine HCl 0.3 mg 10/14/20 15:00 10/14/20 16:00 Clonidine Tts 0.3 Mg/24 Hr Patch TD 0.3 mg Fr PEPITO Administration Heparin Sodium (Porcine) 5,000 unit 10/11/20 22:00 10/15/20 21:04 Heparin 5,000 Unit/1 Ml Vial SUB-Q 5,000 unit Q12HR PEPITO Administration Hydralazine HCl 20 mg 10/12/20 12:00 10/16/20 05:03 Hydralazine 20 Mg/1 Ml Inj IV 20 mg Q6H PEPITO Administration Hydralazine HCl 5 mg 10/15/20 20:25 10/15/20 20:54 Hydralazine 20 Mg/1 Ml Inj IV 5 mg Q6H PRN Administration Hypertension Hydromorphone HCl 0.5 mg 10/10/20 21:51 10/15/20 14:45 Hydromorphone 1 Mg/1 Ml Inj IV 0.5 mg Q3H PRN Administration Pain , Severe (7-10) Hydrophilic Ointment 1 applic 10/10/20 10:34 Lip Therapy Vaseline TP Q2HR PRN Dry Lips Propofol 1,000 mg in 100 mls @ 4.23 mls/hr 10/10/20 12:00 10/16/20 06:54 Diprivan 10 Mg/Ml IV 25 mcg/kg/min TITR PEPITO 21.15 mls/hr Administration Protocol 5 MCG/KG/MIN Nitroglycerin/Dextrose 50 mg in 250 mls @ 3 mls/hr 10/10/20 13:00 10/10/20 13:17 Tridil Drip 50mg/250ml IV 0 mcg/min TITR PEPITO 0 mls/hr Titration Protocol 10 MCG/MIN Norepinephrine 8 mg/ Sodium 250 mls @ 3.75 mls/hr 10/10/20 14:00 10/10/20 22:15 Chloride IV 0 mcg/min TITRATE PEPITO 0 mls/hr Titration Protocol 2 MCG/MIN Cefepime HCl 2 gm in 100 mls @ 200 mls/hr 10/12/20 22:00 10/15/20 21:30 Cefepime/Ns 2 Gm/100 Ml IV Infused Q24H PEPITO Infusion Protocol Levetiracetam 500 mg/ Dextrose 105 mls @ 400 mls/hr 10/13/20 18:00 10/16/20 06:01 IV 400 mls/hr Q12H PEPITO Administration Amino Acids/Electrolytes/Dextrose 2,016 mls @ 84 mls/hr 10/15/20 20:00 10/15/20 20:32 Tpn Adult IV 10/16/20 19:59 84 mls/hr DAILY@2000 PEPITO Administration Protocol Metoclopramide HCl 10 mg 10/10/20 21:51 Metoclopramide 10 Mg/2 Ml Inj IV Q6H PRN Nausea And Vomiting Metoprolol Tartrate 5 mg 10/11/20 12:00 10/16/20 05:03 Metoprolol Tartrate 5 Mg/5 Ml Inj IV 5 mg Q6HR PEPITO Administration Multi-Ingred Cream/Lotion/Oil/Oint 1 applic 10/10/20 10:34 Mineral Oil/Petrolatum, White Ophth Oint 3.5 Gm OU Q4HR PRN Dry Eye(s) Ondansetron HCl 4 mg 10/10/20 21:51 Ondansetron 4 Mg/2 Ml Inj IV Q3H PRN Nausea And Vomiting Pantoprazole Sodium 40 mg 10/12/20 22:00 10/15/20 21:04 Pantoprazole 40 Mg Inj IV 40 mg BID PEPITO Administration Simple Syrup 15 ml 10/10/20 22:18 Simple Syrup 15 Ml FEEDTUBE PRN PRN Hypoglycemia Simple Syrup 30 ml 10/10/20 22:18 Simple Syrup 15 Ml FEEDTUBE PRN PRN Hypoglycemia Sodium Bicarbonate 325 mg 10/10/20 22:18 Sodium Bicarbonate 325 Mg Tab FEEDTUBE PRN PRN For Clogged Feeding Tube Sodium Chloride 10 ml 10/10/20 22:00 10/15/20 21:00 Sodium Chloride 0.9% 10 Ml Flush Syringe IV 10 ml BID PEPITO Administration Sodium Chloride 10 ml 10/10/20 21:51 Sodium Chloride 0.9% 10 Ml Flush Syringe IV PRN PRN LINE FLUSH
[2020-10-16] MEDS: POTASSIUM CHLORIDE 10 MEQ 10 MEQ/100 ML BAG IV SCH ×4 (11:24→15:19)
[2020-10-16] MEDS: HEPARIN 5,000 UNIT/1 ML VIAL SUB-Q SCH ×2 (11:24→22:50)
[2020-10-16] MEDS: PANTOPRAZOLE 40 MG INJ IV SCH ×2 (11:24→22:50)
--- NOTE | 2020-10-16 12:07 | Progress Note ---
Assessment and Plan Continue volume optimization and electrolyte correction per Nephro. May consider IV Cardene gtt if needed for BP optimization when weaning off sedation. Otherwise will optimize antihypertensive regimen when tolerating tube feeds/PO meds. Continue supportive measures. Overall guarded prognosis. Pt seen in conjunction with Dr. Verde, who agrees with the assessment and plan of care. - Patient Problems (1) Cardiopulmonary arrest with successful resuscitation Current Visit: Yes Status: Acute (2) Acute respiratory failure Current Visit: Yes Status: Acute Qualifiers: Respiratory failure complication: hypoxia and hypercapnia Qualified Code(s): J96.01 - Acute respiratory failure with hypoxia; J96.02 - Acute respiratory failure with hypercapnia (3) Sepsis Current Visit: Yes Status: Acute (4) Bilateral pneumonia Current Visit: Yes Status: Acute (5) MOE (acute kidney injury) Current Visit: Yes Status: Acute (6) Hypokalemia Current Visit: Yes Status: Acute (7) Acute heart failure with preserved ejection fraction (HFpEF) Current Visit: Yes Status: Acute (8) Accelerated hypertension Current Visit: Yes Status: Acute (9) NSTEMI (non-ST elevated myocardial infarction) Current Visit: Yes Status: Acute Plan to address problem: Type 2 (10) GI bleed Current Visit: Yes Status: Acute (11) Elevated LFTs Current Visit: Yes Status: Acute (12) Hypertriglyceridemia Current Visit: Yes Status: Acute (13) Seizure Current Visit: Yes Status: Suspected Subjective Date of service: 10/16/20 Principal diagnosis: Cardiac Arrest, Acute Resp Fail, Septic Shock, PNA Interval history: Remains intubated/on mech vent. H&H stable. BP stable this AM; however, noted to be high off sedation. Tele reviewed - SR 80-90s w/PACs & PVCs, intermittent short runs of NSVT noted. Objective Last Vital Signs Temp 98.9 F 10/16/20 07:51 Pulse 81 10/16/20 12:00 Resp 21 10/16/20 12:00 BP 155/88 10/16/20 12:00 Pulse Ox 96 10/16/20 12:00 - Physical Examination General: Other (intubated, sedated) HEENT: Positive: Normocephaly Neck: Positive: neck supple, trachea midline Cardiac: Positive: Reg Rate and Rhythm, S1/S2 Lungs: Positive: Decreased Breath Sounds Neuro: Positive: Other (intubated, sedated) Abdomen: Positive: Soft Skin: Negative: Rash Extremities: Present: lower extr. pulses. Absent: edema - Labs and Meds CBC 10/16/20 Range/Units 03:13 Hgb 12.5 (11.8-15.2) gm/dl Hct 38.5 (35.5-45.6) % Plt Count 161 (140-440) K/mm3 Comprehensive Metabolic Panel 10/16/20 Range/Units 03:13 Sodium 145 (137-145) mmol/L Potassium 3.3 L (3.6-5.0) mmol/L Chloride 102.1 (98-107) mmol/L Carbon Dioxide 33 H (22-30) mmol/L BUN 37 H (9-20) mg/dL Creatinine 1.4 H (0.8-1.3) mg/dL Glucose 148 H (75-100) mg/dL Calcium 9.1 (8.4-10.2) mg/dL - Imaging and Cardiology EKG: report reviewed, image reviewed Echo: report reviewed (10/10/2020 - mod LVH, EF 55-60%, mild diastolic dysfunction) - Telemetry EKG Rhythm: Sinus Rhythm - EKG Sinus rhythms and dysrhythmias: sinus rhythm Repolarization changes or abnormalities: ST suggestive of injury, Q-T interval prolongation - Allied health notes Allied health notes reviewed: nursing
[2020-10-16] MEDS: CHLOROTHIAZIDE 500 MG VIAL IV SCH (13:45)
--- NOTE | 2020-10-16 14:09 | Progress Note ---
Assessment and Plan Cardiac arrest x3 with ROSC Severe septic and cardiogenic shock Acute respiratory failure with hypoxemia and hypercarbia Acute pulmonary edema MOE (acute kidney injury) Lactic acidosis, severe metabolic acidosis Bilateral pneumonia, aspiration pneumonia Elevated troponins - replace potassium again - begin Reglan for GI motility (no bowel obstruction) - add Fentanyl Gtt - continue TPN for now - add Robinul & scopolamine for secretions - continue free water supplementation - CT abd/pelvis negative for acute process - continue care as below otherwise; - get MRI brain as per neurology recommendations - continue set rate on MVS to 12/min - keep peep at 8 cm H2O - continue to hold on full anticoagulation re: negative Dopplers and clinical improvement in oxygenation - continue Clonidine 0.3 mg weekly patch - follow G.I. evaluation - de-escalate empiric anti-infective's per ID rec's (on Cefepime & Azithromycin) - follow clinically re: fevers / WBC - IV heparin for elevated troponins with possible NSTEMI. (on hold now re: ? G.I. Bleed) - Monitor hemodynamics closely - daily SAT's and SBT assessment as tolerated - wean supplemental oxygen for target O2 sat's > 92% acutely - VAP bundle addressed - continue lung protective strategies - bronchodilators with pulmonary hygiene per RT - wean per pulmonary driven protocols otherwise - Monitor urine output closely - bicarbonate infusion - avoid nephrotoxins, renally dose all medications - continue to avoid benzodiazepine's, reduce the possibility of delirium - continue Scopolamine for secretion control - continue wound care per RN/WCN - prn analgesia per CPOT score - Maintenance of sleep-wake cycle, avoid delirium - continue enteral nutritional support at goal rate as tolerated - G.I. & VTE prophylaxis - PT/OT/ROM exercises - continue mobility protocols for pressure ulcer prophylaxis - Monitor hemodynamics closely - continue other care per attending / other consultants - discharge planning ongoing concurrently .... Re-evaluate in am & prn CONDITION: CRITICAL PROGNOSIS: GUARDED CODE STATUS: FULL CODE The high probability of a clinically significant, sudden or life-threatening deterioration of the [respiratory, cardiovascular & neurologic] system(s) required my full and direct attention, intervention and personal management. The aggregate critical care time was [35] minutes without overlap. Time includes spent on; [x] Data Review and interpretation [x] Patient assessment and monitoring of vital signs [x] Documentation [x] Medication orders and management Subjective Date of service: 10/16/20 Principal diagnosis: Cardiac arrest; Septic Shock; Ac. hypoxemic & hypercapnic resp failure; MOE Interval history: Patient is seen today for: Cardiac arrest with ROSC; Severe septic and cardiogenic shock; Acute respiratory failure with hypoxemia and hypercarbia; Acute pulmonary edema; MOE; Lactic acidosis; severe metabolic acidosis; Bilateral pneumonia; aspiration pneumonia; Elevated troponins Seen and examined at bedside; 24hour events reviewed; nursing and respiratory care staff consulted; no adverse overnight events reported to me; resting peacefully in bed; a little more alert but not following prompts; NGT effluent still large; Objective Vital Signs - 12hr 10/16/20 10/16/20 10/16/20 02:15 02:30 02:46 Temperature Pulse Rate 87 87 89 Pulse Rate [ From Monitor] Respiratory 24 23 24 Rate Blood Pressure 183/82 185/98 O2 Sat by Pulse 97 96 93 Oximetry 10/16/20 10/16/20 10/16/20 03:00 03:16 03:30 Temperature Pulse Rate 91 H 90 98 H Pulse Rate [ From Monitor] Respiratory 43 H 22 22 Rate Blood Pressure 176/108 O2 Sat by Pulse 97 91 93 Oximetry 10/16/20 10/16/20 10/16/20 03:41 03:45 04:00 Temperature Pulse Rate 92 H 94 H 107 H Pulse Rate [ From Monitor] Respiratory 28 H 25 H Rate Blood Pressure 194/97 194/97 O2 Sat by Pulse 98 98 Oximetry 10/16/20 10/16/20 10/16/20 04:15 04:30 04:35 Temperature Pulse Rate 92 H 98 H 91 H Pulse Rate [ From Monitor] Respiratory 25 H 24 Rate Blood Pressure 180/90 209/104 O2 Sat by Pulse 99 96 96 Oximetry 10/16/20 10/16/20 10/16/20 04:46 05:00 05:03 Temperature Pulse Rate 92 H 92 H 95 H Pulse Rate [ From Monitor] Respiratory 25 H 23 Rate Blood Pressure 209/104 235/139 O2 Sat by Pulse 99 99 Oximetry 10/16/20 10/16/20 10/16/20 05:15 05:30 05:45 Temperature Pulse Rate 82 80 85 Pulse Rate [ From Monitor] Respiratory 21 23 23 Rate Blood Pressure 208/88 177/66 O2 Sat by Pulse 97 98 97 Oximetry 04/11/0210/16/20 10/16/20 06:00 06:16 06:30 Temperature Pulse Rate 84 83 82 Pulse Rate [ From Monitor] Respiratory 23 21 23 Rate Blood Pressure 127/51 O2 Sat by Pulse 98 98 98 Oximetry 10/16/20 10/16/20 10/16/20 06:46 07:00 07:16 Temperature Pulse Rate 92 H 94 H 100 H Pulse Rate [ From Monitor] Respiratory 25 H 30 H 20 Rate Blood Pressure 160/91 158/61 O2 Sat by Pulse 98 100 98 Oximetry 10/16/20 10/16/20 10/16/20 07:30 07:45 07:51 Temperature 98.9 F Pulse Rate 92 H 86 Pulse Rate [ From Monitor] Respiratory 19 19 Rate Blood Pressure 137/67 152/61 O2 Sat by Pulse 98 99 Oximetry 10/16/20 10/16/20 10/16/20 07:52 08:00 08:16 Temperature Pulse Rate 86 87 87 Pulse Rate [ 86 From Monitor] Respiratory 20 21 Rate Blood Pressure 152/61 143/68 161/84 O2 Sat by Pulse 95 99 97 Oximetry 10/16/20 10/16/20 10/16/20 08:30 08:46 09:00 Temperature Pulse Rate 85 87 83 Pulse Rate [ From Monitor] Respiratory 23 20 21 Rate Blood Pressure 164/90 140/70 134/60 O2 Sat by Pulse 97 97 97 Oximetry 10/16/20 10/16/20 10/16/20 09:16 09:30 09:45 Temperature Pulse Rate 91 H 86 87 Pulse Rate [ From Monitor] Respiratory 16 20 19 Rate Blood Pressure 123/65 123/65 112/57 O2 Sat by Pulse 96 97 94 Oximetry 10/16/20 10/16/20 10/16/20 10:00 10:15 10:30 Temperature Pulse Rate 82 83 81 Pulse Rate [ From Monitor] Respiratory 20 19 21 Rate Blood Pressure 127/67 118/62 116/56 O2 Sat by Pulse 97 98 97 Oximetry 10/16/20 10/16/20 10/16/20 10:45 11:00 11:04 Temperature Pulse Rate 83 81 84 Pulse Rate [ From Monitor] Respiratory 20 19 Rate Blood Pressure 111/57 111/57 129/69 O2 Sat by Pulse 98 97 Oximetry 10/16/20 10/16/20 10/16/20 11:16 11:30 11:46 Temperature Pulse Rate 73 75 75 Pulse Rate [ From Monitor] Respiratory 20 20 21 Rate Blood Pressure 145/81 155/88 158/85 O2 Sat by Pulse 99 97 98 Oximetry 10/16/20 10/16/20 10/16/20 11:55 12:00 12:16 Temperature 98.4 F Pulse Rate 75 81 83 Pulse Rate [ 78 From Monitor] Respiratory 21 24 Rate Blood Pressure 155/88 155/88 194/112 O2 Sat by Pulse 98 96 98 Oximetry 10/16/20 10/16/20 10/16/20 12:30 12:46 13:00 Temperature Pulse Rate 83 88 79 Pulse Rate [ From Monitor] Respiratory 22 17 20 Rate Blood Pressure 158/85 174/82 174/82 O2 Sat by Pulse 98 96 97 Oximetry 10/16/20 10/16/20 10/16/20 13:15 13:30 13:45 Temperature Pulse Rate 87 81 88 Pulse Rate [ From Monitor] Respiratory 23 18 21 Rate Blood Pressure 165/91 144/86 182/104 O2 Sat by Pulse 97 97 97 Oximetry 10/16/20 10/16/20 13:59 14:00 Temperature Pulse Rate 84 87 Pulse Rate [ From Monitor] Respiratory 24 Rate Blood Pressure 182/104 144/86 O2 Sat by Pulse 98 Oximetry Constitutional: no acute distress, other (middle aged obese male with mildly increased respiratory efort at rest) Eyes: non-icteric ENT: oropharynx moist, oropharyngeal exudate pre, other (ETT 23 cm ANNIE) Neck: supple, no lymphadenopathy, no JVD Effort: mildly labored Ascultation: Bilateral: diminished breath sounds, rhonchi (scant) Percussion: Bilateral: not dull Cardiovascular: regular rate and rhythm Gastrointestinal: normoactive bowel sounds, soft, non-tender, non-distended (protuberant) Integumentary: normal Extremities: no cyanosis, no edema, pulses normal, no ischemia or petechiae Neurologic: pupils equal and round, unable to assess Psychiatric: other (unable to assess re: AMS) CBC and BMP: 10/18/20 03:27 10/18/20 03:27 ABG, PT/INR, D-dimer: ABG ABG pH 7.419 pH Units (7.350-7.450) 10/16/20 05:10 POC ABG pCO2 59.6 mmHg (32.0-48.0) H 10/14/20 03:45 ABG pCO2 55.5 mm Hg 10/16/20 05:10 POC ABG pO2 93.3 mmHg (83-108) 10/14/20 03:45 ABG pO2 104.5 mm Hg (80.0-90.0) H 10/16/20 05:10 POC ABG HCO3 40.3 10/14/20 03:45 ABG O2 Saturation 97.7 % (95.0-99.0) 10/16/20 05:10 PT/INR, D-dimer PT 13.8 Sec. (12.2-14.9) 10/10/20 18:18 INR 1.07 (0.87-1.13) 10/10/20 18:18 D-Dimer 679.5 ng/mlDDU (0-234) H 10/10/20 10:48 Abnormal lab findings: Abnormal Labs 10/10/20 10/10/20 10/10/20 10:46 10:46 10:46 WBC RBC Hgb Hct RDW Lymph % (Auto) Lymph # (Auto) Seg Neutrophils % Lymphocytes % (Manual) Monocytes % (Manual) Seg Neutrophils # Seg Neutrophils # Man Lymphocytes # (Manual) Monocytes # (Manual) D-Dimer Heparin Anti-Xa Level ABG pH POC ABG pCO2 POC ABG pO2 ABG pO2 ABG HCO3 ABG O2 Saturation ABG Base Excess ABG Hemoglobin ABG Oxyhemoglobin ABG Sodium ABG Potassium ABG Chloride ABG Glucose VBG pH Oxyhemoglobin Carboxyhemoglobin Sodium Potassium Chloride Carbon Dioxide BUN Creatinine Glucose POC Glucose Lactic Acid 13.60 H* Calcium Magnesium AST ALT Ammonia 214.0 H Lactate Dehydrogenase Total Creatine Kinase CK-MB (CK-2) Troponin T NT-Pro-B Natriuret Pep Total Protein Albumin Triglycerides TSH 6.260 H Arterial Blood Glucose Arterial Blood Ionized Calcium Urine pH Urine WBC (Auto) Urine Creatinine 10/10/20 10/10/20 10/10/20 10:46 10:48 10:48 WBC RBC 5.28 H Hgb 15.5 H Hct 48.8 H RDW Lymph % (Auto) Lymph # (Auto) Seg Neutrophils % Lymphocytes % (Manual) 42.0 H Monocytes % (Manual) Seg Neutrophils # Seg Neutrophils # Man Lymphocytes # (Manual) Monocytes # (Manual) D-Dimer Heparin Anti-Xa Level ABG pH POC ABG pCO2 POC ABG pO2 ABG pO2 ABG HCO3 ABG O2 Saturation ABG Base Excess ABG Hemoglobin ABG Oxyhemoglobin ABG Sodium ABG Potassium ABG Chloride ABG Glucose VBG pH Oxyhemoglobin Carboxyhemoglobin Sodium Potassium 3.3 L Chloride 91.2 L Carbon Dioxide BUN Creatinine 1.8 H Glucose 231 H POC Glucose Lactic Acid Calcium Magnesium AST 60 H ALT 57 H Ammonia Lactate Dehydrogenase Total Creatine Kinase CK-MB (CK-2) Troponin T NT-Pro-B Natriuret Pep 1187 H Total Protein 9.0 H Albumin Triglycerides TSH Arterial Blood Glucose Arterial Blood Ionized Calcium Urine pH Urine WBC (Auto) Urine Creatinine 10/10/20 10/10/20 10/10/20 10:48 10:48 10:48 WBC RBC Hgb Hct RDW Lymph % (Auto) Lymph # (Auto) Seg Neutrophils % Lymphocytes % (Manual) Monocytes % (Manual) Seg Neutrophils # Seg Neutrophils # Man Lymphocytes # (Manual) Monocytes # (Manual) D-Dimer 679.5 H Heparin Anti-Xa Level ABG pH POC ABG pCO2 POC ABG pO2 ABG pO2 ABG HCO3 ABG O2 Saturation ABG Base Excess ABG Hemoglobin ABG Oxyhemoglobin ABG Sodium ABG Potassium ABG Chloride ABG Glucose VBG pH 6.870 L* Oxyhemoglobin Carboxyhemoglobin Sodium Potassium Chloride Carbon Dioxide BUN Creatinine Glucose POC Glucose Lactic Acid Calcium Magnesium AST ALT Ammonia Lactate Dehydrogenase 386 H Total Creatine Kinase CK-MB (CK-2) Troponin T NT-Pro-B Natriuret Pep Total Protein Albumin Triglycerides TSH Arterial Blood Glucose Arterial Blood Ionized Calcium Urine pH Urine WBC (Auto) Urine Creatinine 10/10/20 10/10/20 10/10/20 14:10 14:20 15:50 WBC RBC Hgb Hct RDW Lymph % (Auto) Lymph # (Auto) Seg Neutrophils % Lymphocytes % (Manual) Monocytes % (Manual) Seg Neutrophils # Seg Neutrophils # Man Lymphocytes # (Manual) Monocytes # (Manual) D-Dimer Heparin Anti-Xa Level ABG pH 7.175 L 7.247 L POC ABG pCO2 85.0 H POC ABG pO2 43.7 L ABG pO2 60.3 L ABG HCO3 32.0 H ABG O2 Saturation 86.1 L ABG Base Excess ABG Hemoglobin ABG Oxyhemoglobin 67.7 L ABG Sodium ABG Potassium ABG Chloride ABG Glucose 247 H VBG pH Oxyhemoglobin 84.4 L Carboxyhemoglobin Sodium Potassium Chloride Carbon Dioxide BUN Creatinine Glucose POC Glucose Lactic Acid 4.00 H* Calcium Magnesium AST ALT Ammonia Lactate Dehydrogenase Total Creatine Kinase CK-MB (CK-2) Troponin T NT-Pro-B Natriuret Pep Total Protein Albumin Triglycerides TSH Arterial Blood Glucose 247 H Arterial Blood Ionized Calcium 4.4 L Urine pH Urine WBC (Auto) Urine Creatinine 10/10/20 10/10/20 10/10/20 15:50 16:22 18:18 WBC RBC Hgb Hct RDW Lymph % (Auto) Lymph # (Auto) Seg Neutrophils % Lymphocytes % (Manual) Monocytes % (Manual) Seg Neutrophils # Seg Neutrophils # Man Lymphocytes # (Manual) Monocytes # (Manual) D-Dimer Heparin Anti-Xa Level ABG pH 7.171 L POC ABG pCO2 96.6 H POC ABG pO2 55.3 L ABG pO2 ABG HCO3 ABG O2 Saturation ABG Base Excess ABG Hemoglobin ABG Oxyhemoglobin 81.4 L ABG Sodium ABG Potassium ABG Chloride ABG Glucose 115 H VBG pH Oxyhemoglobin Carboxyhemoglobin Sodium Potassium Chloride Carbon Dioxide BUN Creatinine Glucose POC Glucose 132 H Lactic Acid Calcium Magnesium AST ALT Ammonia Lactate Dehydrogenase Total Creatine Kinase 1192 H CK-MB (CK-2) 21.7 H Troponin T 0.377 H* D NT-Pro-B Natriuret Pep Total Protein Albumin Triglycerides TSH Arterial Blood Glucose 115 H Arterial Blood Ionized Calcium Urine pH Urine WBC (Auto) Urine Creatinine 10/10/20 10/10/20 10/10/20 18:18 18:18 22:49 WBC 23.0 H RBC 5.12 H Hgb Hct RDW Lymph % (Auto) Lymph # (Auto) Seg Neutrophils % Lymphocytes % (Manual) 4.0 L Monocytes % (Manual) 9.0 H Seg Neutrophils # Seg Neutrophils # Man 13.8 H Lymphocytes # (Manual) 0.9 L Monocytes # (Manual) 2.1 H D-Dimer Heparin Anti-Xa Level ABG pH POC ABG pCO2 POC ABG pO2 ABG pO2 ABG HCO3 ABG O2 Saturation ABG Base Excess ABG Hemoglobin ABG Oxyhemoglobin ABG Sodium ABG Potassium ABG Chloride ABG Glucose VBG pH Oxyhemoglobin Carboxyhemoglobin Sodium 146 H Potassium Chloride Carbon Dioxide 34 H D BUN 27 H Creatinine 2.7 H Glucose 102 H POC Glucose Lactic Acid Calcium Magnesium AST 90 H ALT 66 H Ammonia Lactate Dehydrogenase Total Creatine Kinase CK-MB (CK-2) Troponin T 0.273 H* D NT-Pro-B Natriuret Pep Total Protein Albumin Triglycerides TSH Arterial Blood Glucose Arterial Blood Ionized Calcium Urine pH Urine WBC (Auto) Urine Creatinine 10/11/20 10/11/20 10/11/20 02:00 02:00 02:00 WBC 17.3 H RBC Hgb Hct RDW Lymph % (Auto) 3.9 L Lymph # (Auto) 0.7 L Seg Neutrophils % 93.0 H Lymphocytes % (Manual) Monocytes % (Manual) Seg Neutrophils # 16.1 H Seg Neutrophils # Man Lymphocytes # (Manual) Monocytes # (Manual) D-Dimer Heparin Anti-Xa Level ABG pH POC ABG pCO2 POC ABG pO2 ABG pO2 ABG HCO3 ABG O2 Saturation ABG Base Excess ABG Hemoglobin ABG Oxyhemoglobin ABG Sodium ABG Potassium ABG Chloride ABG Glucose VBG pH Oxyhemoglobin Carboxyhemoglobin Sodium 149 H Potassium 3.3 L Chloride 95.3 L Carbon Dioxide 37 H BUN 29 H Creatinine 2.6 H Glucose POC Glucose Lactic Acid Calcium Magnesium AST 80 H ALT 59 H Ammonia Lactate Dehydrogenase Total Creatine Kinase CK-MB (CK-2) Troponin T 0.201 H* D NT-Pro-B Natriuret Pep Total Protein Albumin 3.6 L Triglycerides TSH Arterial Blood Glucose Arterial Blood Ionized Calcium Urine pH Urine WBC (Auto) Urine Creatinine 10/11/20 10/11/20 10/11/20 03:51 08:35 11:15 WBC RBC Hgb Hct RDW Lymph % (Auto) Lymph # (Auto) Seg Neutrophils % Lymphocytes % (Manual) Monocytes % (Manual) Seg Neutrophils # Seg Neutrophils # Man Lymphocytes # (Manual) Monocytes # (Manual) D-Dimer Heparin Anti-Xa Level 0.22 L ABG pH 7.491 H POC ABG pCO2 57.6 H POC ABG pO2 ABG pO2 ABG HCO3 ABG O2 Saturation ABG Base Excess ABG Hemoglobin ABG Oxyhemoglobin ABG Sodium 150.0 H ABG Potassium 3.1 L ABG Chloride 96.0 L ABG Glucose 122 H VBG pH Oxyhemoglobin Carboxyhemoglobin Sodium Potassium Chloride Carbon Dioxide BUN Creatinine Glucose POC Glucose 151 H Lactic Acid Calcium Magnesium AST ALT Ammonia Lactate Dehydrogenase Total Creatine Kinase CK-MB (CK-2) Troponin T NT-Pro-B Natriuret Pep Total Protein Albumin Triglycerides TSH Arterial Blood Glucose 122 H Arterial Blood Ionized Calcium 3.9 L Urine pH Urine WBC (Auto) Urine Creatinine 10/11/20 10/11/20 10/11/20 13:30 13:30 13:30 WBC 15.0 H RBC Hgb Hct RDW Lymph % (Auto) Lymph # (Auto) Seg Neutrophils % Lymphocytes % (Manual) Monocytes % (Manual) Seg Neutrophils # Seg Neutrophils # Man Lymphocytes # (Manual) Monocytes # (Manual) D-Dimer Heparin Anti-Xa Level ABG pH POC ABG pCO2 POC ABG pO2 ABG pO2 ABG HCO3 ABG O2 Saturation ABG Base Excess ABG Hemoglobin ABG Oxyhemoglobin ABG Sodium ABG Potassium ABG Chloride ABG Glucose VBG pH Oxyhemoglobin Carboxyhemoglobin Sodium Potassium Chloride Carbon Dioxide BUN Creatinine Glucose POC Glucose Lactic Acid Calcium Magnesium AST ALT Ammonia Lactate Dehydrogenase Total Creatine Kinase CK-MB (CK-2) Troponin T NT-Pro-B Natriuret Pep Total Protein Albumin Triglycerides TSH Arterial Blood Glucose Arterial Blood Ionized Calcium Urine pH 9.0 H Urine WBC (Auto) 18.0 H Urine Creatinine 80.5 H 10/11/20 10/11/20 10/12/20 17:17 23:14 03:53 WBC RBC Hgb Hct RDW Lymph % (Auto) Lymph # (Auto) Seg Neutrophils % Lymphocytes % (Manual) Monocytes % (Manual) Seg Neutrophils # Seg Neutrophils # Man Lymphocytes # (Manual) Monocytes # (Manual) D-Dimer Heparin Anti-Xa Level ABG pH 7.545 H POC ABG pCO2 54.6 H POC ABG pO2 231.9 H ABG pO2 ABG HCO3 ABG O2 Saturation ABG Base Excess ABG Hemoglobin ABG Oxyhemoglobin 98.5 H ABG Sodium 150.5 H ABG Potassium 3.2 L ABG Chloride 96.0 L ABG Glucose 148 H VBG pH Oxyhemoglobin Carboxyhemoglobin Sodium Potassium Chloride Carbon Dioxide BUN Creatinine Glucose POC Glucose 121 H 135 H Lactic Acid Calcium Magnesium AST ALT Ammonia Lactate Dehydrogenase Total Creatine Kinase CK-MB (CK-2) Troponin T NT-Pro-B Natriuret Pep Total Protein Albumin Triglycerides TSH Arterial Blood Glucose 148 H Arterial Blood Ionized Calcium 3.8 L Urine pH Urine WBC (Auto) Urine Creatinine 10/12/20 10/12/20 10/12/20 04:00 05:10 05:12 WBC 14.3 H RBC Hgb 11.6 L Hct 35.2 L RDW Lymph % (Auto) Lymph # (Auto) Seg Neutrophils % Lymphocytes % (Manual) Monocytes % (Manual) Seg Neutrophils # Seg Neutrophils # Man Lymphocytes # (Manual) Monocytes # (Manual) D-Dimer Heparin Anti-Xa Level ABG pH POC ABG pCO2 POC ABG pO2 ABG pO2 ABG HCO3 ABG O2 Saturation ABG Base Excess ABG Hemoglobin ABG Oxyhemoglobin ABG Sodium ABG Potassium ABG Chloride ABG Glucose VBG pH Oxyhemoglobin Carboxyhemoglobin Sodium 155 H Potassium 3.3 L Chloride 97.9 L Carbon Dioxide 47 H* D BUN 50 H Creatinine 3.4 H Glucose 146 H POC Glucose 137 H Lactic Acid Calcium 8.0 L Magnesium AST ALT Ammonia Lactate Dehydrogenase Total Creatine Kinase CK-MB (CK-2) Troponin T 0.125 H* D NT-Pro-B Natriuret Pep Total Protein Albumin Triglycerides TSH Arterial Blood Glucose Arterial Blood Ionized Calcium Urine pH Urine WBC (Auto) Urine Creatinine 10/12/20 10/12/20 10/12/20 11:39 16:01 19:49 WBC RBC Hgb Hct RDW Lymph % (Auto) Lymph # (Auto) Seg Neutrophils % Lymphocytes % (Manual) Monocytes % (Manual) Seg Neutrophils # Seg Neutrophils # Man Lymphocytes # (Manual) Monocytes # (Manual) D-Dimer Heparin Anti-Xa Level ABG pH POC ABG pCO2 POC ABG pO2 ABG pO2 ABG HCO3 ABG O2 Saturation ABG Base Excess ABG Hemoglobin ABG Oxyhemoglobin ABG Sodium ABG Potassium ABG Chloride ABG Glucose VBG pH Oxyhemoglobin Carboxyhemoglobin Sodium 157 H Potassium 3.3 L Chloride Carbon Dioxide 47 H* BUN 52 H Creatinine 3.0 H Glucose 137 H POC Glucose 138 H 119 H Lactic Acid Calcium 8.0 L Magnesium AST ALT Ammonia Lactate Dehydrogenase Total Creatine Kinase CK-MB (CK-2) Troponin T NT-Pro-B Natriuret Pep Total Protein Albumin Triglycerides TSH Arterial Blood Glucose Arterial Blood Ionized Calcium Urine pH Urine WBC (Auto) Urine Creatinine 10/12/20 10/13/20 10/13/20 23:37 02:28 04:52 WBC RBC Hgb Hct RDW Lymph % (Auto) Lymph # (Auto) Seg Neutrophils % Lymphocytes % (Manual) Monocytes % (Manual) Seg Neutrophils # Seg Neutrophils # Man Lymphocytes # (Manual) Monocytes # (Manual) D-Dimer Heparin Anti-Xa Level ABG pH 7.485 H POC ABG pCO2 57.1 H POC ABG pO2 ABG pO2 ABG HCO3 ABG O2 Saturation ABG Base Excess ABG Hemoglobin ABG Oxyhemoglobin ABG Sodium 152.4 H ABG Potassium ABG Chloride ABG Glucose 129 H VBG pH Oxyhemoglobin Carboxyhemoglobin Sodium 155 H Potassium Chloride Carbon Dioxide 45 H* BUN 52 H Creatinine 2.7 H Glucose 121 H POC Glucose 131 H Lactic Acid Calcium Magnesium 2.40 H AST ALT Ammonia Lactate Dehydrogenase Total Creatine Kinase CK-MB (CK-2) Troponin T NT-Pro-B Natriuret Pep Total Protein Albumin Triglycerides 278 H TSH Arterial Blood Glucose 129 H Arterial Blood Ionized Calcium 4.1 L Urine pH Urine WBC (Auto) Urine Creatinine 10/13/20 10/13/20 10/13/20 04:52 05:13 11:37 WBC 14.7 H RBC Hgb 11.7 L Hct RDW 15.8 H Lymph % (Auto) Lymph # (Auto) Seg Neutrophils % Lymphocytes % (Manual) Monocytes % (Manual) Seg Neutrophils # Seg Neutrophils # Man Lymphocytes # (Manual) Monocytes # (Manual) D-Dimer Heparin Anti-Xa Level ABG pH POC ABG pCO2 POC ABG pO2 ABG pO2 ABG HCO3 ABG O2 Saturation ABG Base Excess ABG Hemoglobin ABG Oxyhemoglobin ABG Sodium ABG Potassium ABG Chloride ABG Glucose VBG pH Oxyhemoglobin Carboxyhemoglobin Sodium Potassium Chloride Carbon Dioxide BUN Creatinine Glucose POC Glucose 116 H 116 H Lactic Acid Calcium Magnesium AST ALT Ammonia Lactate Dehydrogenase Total Creatine Kinase CK-MB (CK-2) Troponin T NT-Pro-B Natriuret Pep Total Protein Albumin Triglycerides TSH Arterial Blood Glucose Arterial Blood Ionized Calcium Urine pH Urine WBC (Auto) Urine Creatinine 10/13/20 10/14/20 10/14/20 17:50 03:45 04:46 WBC 11.1 H RBC Hgb Hct RDW 15.3 H Lymph % (Auto) Lymph # (Auto) Seg Neutrophils % Lymphocytes % (Manual) Monocytes % (Manual) Seg Neutrophils # Seg Neutrophils # Man Lymphocytes # (Manual) Monocytes # (Manual) D-Dimer Heparin Anti-Xa Level ABG pH POC ABG pCO2 59.6 H POC ABG pO2 ABG pO2 ABG HCO3 ABG O2 Saturation ABG Base Excess ABG Hemoglobin ABG Oxyhemoglobin ABG Sodium 151.4 H ABG Potassium 3.3 L ABG Chloride ABG Glucose 138 H VBG pH Oxyhemoglobin Carboxyhemoglobin 1.6 H Sodium Potassium Chloride Carbon Dioxide BUN Creatinine Glucose POC Glucose 140 H Lactic Acid Calcium Magnesium AST ALT Ammonia Lactate Dehydrogenase Total Creatine Kinase CK-MB (CK-2) Troponin T NT-Pro-B Natriuret Pep Total Protein Albumin Triglycerides TSH Arterial Blood Glucose 138 H Arterial Blood Ionized Calcium 4.5 L Urine pH Urine WBC (Auto) Urine Creatinine 10/14/20 10/14/20 10/14/20 04:46 05:10 11:11 WBC RBC Hgb Hct RDW Lymph % (Auto) Lymph # (Auto) Seg Neutrophils % Lymphocytes % (Manual) Monocytes % (Manual) Seg Neutrophils # Seg Neutrophils # Man Lymphocytes # (Manual) Monocytes # (Manual) D-Dimer Heparin Anti-Xa Level ABG pH POC ABG pCO2 POC ABG pO2 ABG pO2 ABG HCO3 ABG O2 Saturation ABG Base Excess ABG Hemoglobin ABG Oxyhemoglobin ABG Sodium ABG Potassium ABG Chloride ABG Glucose VBG pH Oxyhemoglobin Carboxyhemoglobin Sodium 152 H Potassium 3.5 L Chloride Carbon Dioxide 38 H D BUN 46 H Creatinine 2.3 H Glucose 127 H POC Glucose 116 H 114 H Lactic Acid Calcium Magnesium AST ALT Ammonia Lactate Dehydrogenase Total Creatine Kinase CK-MB (CK-2) Troponin T NT-Pro-B Natriuret Pep Total Protein Albumin Triglycerides TSH Arterial Blood Glucose Arterial Blood Ionized Calcium Urine pH Urine WBC (Auto) Urine Creatinine 10/14/20 10/14/20 10/15/20 18:53 23:23 04:12 WBC RBC Hgb Hct RDW Lymph % (Auto) Lymph # (Auto) Seg Neutrophils % Lymphocytes % (Manual) Monocytes % (Manual) Seg Neutrophils # Seg Neutrophils # Man Lymphocytes # (Manual) Monocytes # (Manual) D-Dimer Heparin Anti-Xa Level ABG pH POC ABG pCO2 POC ABG pO2 ABG pO2 ABG HCO3 ABG O2 Saturation ABG Base Excess ABG Hemoglobin ABG Oxyhemoglobin ABG Sodium ABG Potassium ABG Chloride ABG Glucose VBG pH Oxyhemoglobin Carboxyhemoglobin Sodium 149 H Potassium 3.2 L Chloride Carbon Dioxide 37 H BUN 40 H Creatinine 2.0 H Glucose 124 H POC Glucose 128 H 113 H Lactic Acid Calcium Magnesium AST ALT Ammonia Lactate Dehydrogenase Total Creatine Kinase CK-MB (CK-2) Troponin T NT-Pro-B Natriuret Pep Total Protein Albumin Triglycerides TSH Arterial Blood Glucose Arterial Blood Ionized Calcium Urine pH Urine WBC (Auto) Urine Creatinine 10/15/20 10/15/20 10/15/20 04:22 11:39 17:36 WBC RBC Hgb Hct RDW Lymph % (Auto) Lymph # (Auto) Seg Neutrophils % Lymphocytes % (Manual) Monocytes % (Manual) Seg Neutrophils # Seg Neutrophils # Man Lymphocytes # (Manual) Monocytes # (Manual) D-Dimer Heparin Anti-Xa Level ABG pH POC ABG pCO2 POC ABG pO2 ABG pO2 115.0 H ABG HCO3 38.1 H ABG O2 Saturation ABG Base Excess 11.3 H ABG Hemoglobin 11.0 L ABG Oxyhemoglobin ABG Sodium ABG Potassium ABG Chloride ABG Glucose VBG pH Oxyhemoglobin Carboxyhemoglobin Sodium Potassium Chloride Carbon Dioxide BUN Creatinine Glucose POC Glucose 123 H 118 H Lactic Acid Calcium Magnesium AST ALT Ammonia Lactate Dehydrogenase Total Creatine Kinase CK-MB (CK-2) Troponin T NT-Pro-B Natriuret Pep Total Protein Albumin Triglycerides TSH Arterial Blood Glucose Arterial Blood Ionized Calcium Urine pH Urine WBC (Auto) Urine Creatinine 10/15/20 10/16/20 10/16/20 23:18 03:13 05:10 WBC RBC Hgb Hct RDW Lymph % (Auto) Lymph # (Auto) Seg Neutrophils % Lymphocytes % (Manual) Monocytes % (Manual) Seg Neutrophils # Seg Neutrophils # Man Lymphocytes # (Manual) Monocytes # (Manual) D-Dimer Heparin Anti-Xa Level ABG pH POC ABG pCO2 POC ABG pO2 ABG pO2 104.5 H ABG HCO3 35.1 H ABG O2 Saturation ABG Base Excess 9.5 H ABG Hemoglobin 7.9 L ABG Oxyhemoglobin ABG Sodium ABG Potassium ABG Chloride ABG Glucose VBG pH Oxyhemoglobin Carboxyhemoglobin Sodium Potassium 3.3 L Chloride Carbon Dioxide 33 H BUN 37 H Creatinine 1.4 H Glucose 148 H POC Glucose 135 H Lactic Acid Calcium Magnesium 2.40 H AST ALT Ammonia Lactate Dehydrogenase Total Creatine Kinase CK-MB (CK-2) Troponin T NT-Pro-B Natriuret Pep Total Protein Albumin Triglycerides TSH Arterial Blood Glucose Arterial Blood Ionized Calcium Urine pH Urine WBC (Auto) Urine Creatinine Chest x-ray: image reviewed Allied health notes reviewed: nursing
[2020-10-16] MEDS: hydrALAZINE 20 MG/1 ML INJ IV PRN (14:46)
[2020-10-16] MEDS: fentaNYL DRIP Premix 2,000 MCG/100 ML BAG IV SCH (14:46)
[2020-10-16] MEDS: GLYCOPYRROLATE 0.4 MG/2 ML INJ IV SCH ×2 (14:46→23:45)
[2020-10-16] MEDS ORDERED: TOTAL PARENTERAL NUTRITION 2,016 ML IV SCH (20:00)
[2020-10-16] MEDS: DOCUSATE SODIUM 100 MG/10 ML ORAL LIQD PO SCH (22:51)
[2020-10-16] MEDS: CEFEPIME/NS 2 GM/100 ML 2 GM/100 ML BAG IV SCH (23:03)
[2020-10-17] MEDS: METOPROLOL TARTRATE 5 MG/5 ML INJ IV SCH ×4 (00:23→17:17)
[2020-10-17 04:28] LABS: Calcium 8.8 mg/dL (8.4-10.2)
--- NOTE | 2020-10-17 05:14 | XRay Report ---
CHEST 1 VIEW 10/17/2020 4:01 AM INDICATION / CLINICAL INFORMATION: follow up respiratory failure. COMPARISON: 10/16/2020 FINDINGS: SUPPORT DEVICES: Endotracheal tube and nasogastric tube is unchanged HEART / MEDIASTINUM: Unchanged. There is enlargement of the cardiac silhouette. LUNGS / PLEURA: Pulmonary opacities persist. No pneumothorax. ADDITIONAL FINDINGS: No significant additional findings. IMPRESSION: 1. No significant change. Signer Name: Moris Kerr MD Signed: 10/17/2020 5:10 AM Workstation Name: [id number]
[2020-10-17] MEDS: fentaNYL DRIP Premix 2,000 MCG/100 ML BAG IV SCH ×2 (05:42→17:17)
[2020-10-17] MEDS: levETIRAcetam 500 MG in DEXTROSE 5% IN WATER 100 ML IV SCH ×2 (05:43→17:40)
--- NOTE | 2020-10-17 05:49 | Progress Note ---
Assessment and Plan Cardiac arrest x3 with ROSC Severe septic and cardiogenic shock Acute respiratory failure with hypoxia and hypercarbia Acute pulmonary edema MOE (acute kidney injury) Lactic acidosis, severe metabolic acidosis Bilateral pneumonia, aspiration pneumonia Elevated troponins -VAP bundle addressed, aspiration precautions HOB >30 -may have an element of hypoxic damage, Neurology work up on going. -Continue with heparin infusion, in the event that this could be also be pulmonary embolism -Titrate supplemental oxygen to keep O2 sats between 89-92% - Peep at 8, monitor airway pressures closely - Lung protective strategies - continue bronchodilators with pulmonary hygiene per RT -Daily assessment fro readiness to wean. SAT and SBTs daily -ABG and CXR as clinically indicated, no need for daily orders at this time - avoid nephrotoxins, renally dose all medications -Blood pressure control and management - Accuchecks with glycemic control per SSI (While critically ill target blood glucose of 140-180 mg/dL; avoid hypoglycemia) - Titrate for target RASS 0 to -1 - continue antibiotics per ID . De-escalate based on culture data and clinical response Currently on Ceftriaxone and Azithromycin - Maintenance of sleep-wake cycle, avoid delirium - NPO, promotility agents. GI work up - Stress ulcer prophylaxis-Pantoprazole -VTE prophyalxis- Heparin -Mobility, off loading, frequent turning per facility protocol to prevent pressure ulcers - Monitor hemodynamics closely CONDITION: CRITICAL PROGNOSIS: GUARDED CODE STATUS: FULL CODE The high probability of a clinically significant, sudden or life-threatening deterioration of the [respiratory, cardiovascular, renal & neurologic] system(s) required my full and direct attention, intervention and personal management. The aggregate critical care time was [34 ] minutes without overlap. Time includes spent on; [x] Data Review and interpretation [x] Patient assessment and monitoring of vital signs [x] Documentation [x] Medication orders and management Discussed with the mother at the bedside Discussed with primary Attending- Dr. Kelly Subjective Date of service: 10/17/20 Principal diagnosis: Cardiac arrest; Septic Shock; Ac. hypoxemic & hypercapnic resp failure; MOE Interval history: Patient is seen today for: Cardiac arrest with ROSC; Severe septic and cardiogenic shock; Acute respiratory failure with hypoxemia and hypercarbia; Acute pulmonary edema; MOE; Lactic acidosis; severe metabolic acidosis; Bilateral pneumonia; aspiration pneumonia; Elevated troponins Seen and examined at bedside; 24hour events reviewed; nursing and respiratory care staff consulted; no adverse overnight events reported to me; resting peacefully in bed on MVS; no fevers, no vomiting, no diarrhea, NGT output remains significant. Mental status changes persist Objective Vital Signs - 12hr 10/16/20 10/16/20 10/16/20 18:00 18:16 18:30 Temperature Pulse Rate 107 H 93 H 90 Pulse Rate [ From Monitor] Respiratory 11 L 18 13 Rate Blood Pressure 98/50 110/89 110/89 O2 Sat by Pulse 93 93 95 Oximetry 10/16/20 10/16/20 10/16/20 18:46 19:00 19:16 Temperature Pulse Rate 87 89 86 Pulse Rate [ From Monitor] Respiratory 14 15 16 Rate Blood Pressure 105/70 114/73 120/66 O2 Sat by Pulse 95 95 96 Oximetry 10/16/20 10/16/20 10/16/20 19:30 19:40 19:45 Temperature Pulse Rate 91 H 85 92 H Pulse Rate [ From Monitor] Respiratory 16 20 Rate Blood Pressure 113/74 113/74 113/76 O2 Sat by Pulse 96 97 96 Oximetry 10/16/20 10/16/20 10/16/20 20:00 20:10 20:16 Temperature 98.8 F Pulse Rate 94 H 92 H 91 H Pulse Rate [ From Monitor] Respiratory 19 16 Rate Blood Pressure 152/94 158/88 O2 Sat by Pulse 97 97 Oximetry 10/16/20 10/16/20 10/16/20 20:30 20:46 21:00 Temperature Pulse Rate 79 82 78 Pulse Rate [ From Monitor] Respiratory 16 16 14 Rate Blood Pressure 159/85 113/76 O2 Sat by Pulse 97 97 96 Oximetry 10/16/20 10/16/20 10/16/20 21:16 21:30 21:46 Temperature Pulse Rate 83 77 81 Pulse Rate [ From Monitor] Respiratory 13 16 11 L Rate Blood Pressure 111/52 O2 Sat by Pulse 97 95 95 Oximetry 10/16/20 10/16/20 10/16/20 22:00 22:15 22:30 Temperature Pulse Rate 79 83 81 Pulse Rate [ From Monitor] Respiratory 14 14 14 Rate Blood Pressure 120/77 97/55 O2 Sat by Pulse 98 97 97 Oximetry 10/16/20 10/16/20 10/16/20 22:45 23:00 23:15 Temperature Pulse Rate 87 83 89 Pulse Rate [ From Monitor] Respiratory 12 14 13 Rate Blood Pressure 115/70 103/54 103/54 O2 Sat by Pulse 96 96 96 Oximetry 10/16/20 10/16/20 10/16/20 23:30 23:45 23:50 Temperature Pulse Rate 83 85 91 H Pulse Rate [ From Monitor] Respiratory 13 12 13 Rate Blood Pressure 97/62 95/58 95/58 O2 Sat by Pulse 96 96 96 Oximetry 10/17/20 10/17/20 10/17/20 00:00 00:15 00:23 Temperature 99.0 F Pulse Rate 94 H 93 H 94 H Pulse Rate [ 87 From Monitor] Respiratory 11 L 10 L Rate Blood Pressure 88/49 88/49 88/49 O2 Sat by Pulse 96 96 Oximetry 10/17/20 10/17/20 10/17/20 00:30 00:45 01:00 Temperature Pulse Rate 95 H 89 87 Pulse Rate [ From Monitor] Respiratory 11 L 13 11 L Rate Blood Pressure 79/47 98/49 96/65 O2 Sat by Pulse 95 96 96 Oximetry 10/17/20 10/17/20 10/17/20 01:15 01:30 01:45 Temperature Pulse Rate 93 H 90 90 Pulse Rate [ From Monitor] Respiratory 11 L 10 L 10 L Rate Blood Pressure 93/59 98/59 106/58 O2 Sat by Pulse 96 95 95 Oximetry 10/17/20 10/17/20 10/17/20 02:00 02:15 02:30 Temperature Pulse Rate 85 89 85 Pulse Rate [ From Monitor] Respiratory 10 L 11 L 13 Rate Blood Pressure 111/58 107/56 107/56 O2 Sat by Pulse 96 96 97 Oximetry 10/17/20 10/17/20 10/17/20 02:45 03:00 03:16 Temperature Pulse Rate 87 85 92 H Pulse Rate [ From Monitor] Respiratory 13 12 13 Rate Blood Pressure 102/72 118/65 98/63 O2 Sat by Pulse 95 96 96 Oximetry 10/17/20 10/17/20 10/17/20 03:30 03:45 03:57 Temperature 99.3 F Pulse Rate 90 86 Pulse Rate [ From Monitor] Respiratory 13 12 Rate Blood Pressure 98/63 107/56 O2 Sat by Pulse 96 95 Oximetry 10/17/20 04:00 Temperature Pulse Rate 88 Pulse Rate [ 86 From Monitor] Respiratory 13 Rate Blood Pressure 107/56 O2 Sat by Pulse 96 Oximetry Constitutional: no acute distress, other (middle aged obese male with mildly increased respiratory efort at rest) Eyes: non-icteric ENT: oropharynx moist, oropharyngeal exudate pre, other (ETT 23 cm ANNIE) Neck: supple, no lymphadenopathy, no JVD Effort: mildly labored Ascultation: Bilateral: diminished breath sounds, rhonchi (scant) Percussion: Bilateral: not dull Cardiovascular: regular rate and rhythm, other (S1,S2) Gastrointestinal: normoactive bowel sounds, soft, non-tender, non-distended (protuberant) Integumentary: normal Extremities: no cyanosis, no edema, pulses normal, no ischemia or petechiae Neurologic: pupils equal and round, unable to assess Psychiatric: other (unable to assess re: AMS) CBC and BMP: 10/21/20 06:30 10/21/20 06:30 ABG, PT/INR, D-dimer: ABG ABG pH 7.419 pH Units (7.350-7.450) 10/16/20 05:10 POC ABG pCO2 59.6 mmHg (32.0-48.0) H 10/14/20 03:45 ABG pCO2 55.5 mm Hg 10/16/20 05:10 POC ABG pO2 93.3 mmHg (83-108) 10/14/20 03:45 ABG pO2 104.5 mm Hg (80.0-90.0) H 10/16/20 05:10 POC ABG HCO3 40.3 10/14/20 03:45 ABG O2 Saturation 97.7 % (95.0-99.0) 10/16/20 05:10 PT/INR, D-dimer PT 13.8 Sec. (12.2-14.9) 10/10/20 18:18 INR 1.07 (0.87-1.13) 10/10/20 18:18 D-Dimer 679.5 ng/mlDDU (0-234) H 10/10/20 10:48 Abnormal lab findings: Abnormal Labs 10/10/20 10/10/20 10/10/20 10:46 10:46 10:46 WBC RBC Hgb Hct RDW Lymph % (Auto) Lymph # (Auto) Seg Neutrophils % Lymphocytes % (Manual) Monocytes % (Manual) Seg Neutrophils # Seg Neutrophils # Man Lymphocytes # (Manual) Monocytes # (Manual) D-Dimer Heparin Anti-Xa Level ABG pH POC ABG pCO2 POC ABG pO2 ABG pO2 ABG HCO3 ABG O2 Saturation ABG Base Excess ABG Hemoglobin ABG Oxyhemoglobin ABG Sodium ABG Potassium ABG Chloride ABG Glucose VBG pH Oxyhemoglobin Carboxyhemoglobin Sodium Potassium Chloride Carbon Dioxide BUN Creatinine Glucose POC Glucose Lactic Acid 13.60 H* Calcium Magnesium AST ALT Ammonia 214.0 H Lactate Dehydrogenase Total Creatine Kinase CK-MB (CK-2) Troponin T NT-Pro-B Natriuret Pep Total Protein Albumin Triglycerides TSH 6.260 H Arterial Blood Glucose Arterial Blood Ionized Calcium Urine pH Urine WBC (Auto) Urine Creatinine 10/10/20 10/10/20 10/10/20 10:46 10:48 10:48 WBC RBC 5.28 H Hgb 15.5 H Hct 48.8 H RDW Lymph % (Auto) Lymph # (Auto) Seg Neutrophils % Lymphocytes % (Manual) 42.0 H Monocytes % (Manual) Seg Neutrophils # Seg Neutrophils # Man Lymphocytes # (Manual) Monocytes # (Manual) D-Dimer Heparin Anti-Xa Level ABG pH POC ABG pCO2 POC ABG pO2 ABG pO2 ABG HCO3 ABG O2 Saturation ABG Base Excess ABG Hemoglobin ABG Oxyhemoglobin ABG Sodium ABG Potassium ABG Chloride ABG Glucose VBG pH Oxyhemoglobin Carboxyhemoglobin Sodium Potassium 3.3 L Chloride 91.2 L Carbon Dioxide BUN Creatinine 1.8 H Glucose 231 H POC Glucose Lactic Acid Calcium Magnesium AST 60 H ALT 57 H Ammonia Lactate Dehydrogenase Total Creatine Kinase CK-MB (CK-2) Troponin T NT-Pro-B Natriuret Pep 1187 H Total Protein 9.0 H Albumin Triglycerides TSH Arterial Blood Glucose Arterial Blood Ionized Calcium Urine pH Urine WBC (Auto) Urine Creatinine 10/10/20 10/10/20 10/10/20 10:48 10:48 10:48 WBC RBC Hgb Hct RDW Lymph % (Auto) Lymph # (Auto) Seg Neutrophils % Lymphocytes % (Manual) Monocytes % (Manual) Seg Neutrophils # Seg Neutrophils # Man Lymphocytes # (Manual) Monocytes # (Manual) D-Dimer 679.5 H Heparin Anti-Xa Level ABG pH POC ABG pCO2 POC ABG pO2 ABG pO2 ABG HCO3 ABG O2 Saturation ABG Base Excess ABG Hemoglobin ABG Oxyhemoglobin ABG Sodium ABG Potassium ABG Chloride ABG Glucose VBG pH 6.870 L* Oxyhemoglobin Carboxyhemoglobin Sodium Potassium Chloride Carbon Dioxide BUN Creatinine Glucose POC Glucose Lactic Acid Calcium Magnesium AST ALT Ammonia Lactate Dehydrogenase 386 H Total Creatine Kinase CK-MB (CK-2) Troponin T NT-Pro-B Natriuret Pep Total Protein Albumin Triglycerides TSH Arterial Blood Glucose Arterial Blood Ionized Calcium Urine pH Urine WBC (Auto) Urine Creatinine 10/10/20 10/10/20 10/10/20 14:10 14:20 15:50 WBC RBC Hgb Hct RDW Lymph % (Auto) Lymph # (Auto) Seg Neutrophils % Lymphocytes % (Manual) Monocytes % (Manual) Seg Neutrophils # Seg Neutrophils # Man Lymphocytes # (Manual) Monocytes # (Manual) D-Dimer Heparin Anti-Xa Level ABG pH 7.175 L 7.247 L POC ABG pCO2 85.0 H POC ABG pO2 43.7 L ABG pO2 60.3 L ABG HCO3 32.0 H ABG O2 Saturation 86.1 L ABG Base Excess ABG Hemoglobin ABG Oxyhemoglobin 67.7 L ABG Sodium ABG Potassium ABG Chloride ABG Glucose 247 H VBG pH Oxyhemoglobin 84.4 L Carboxyhemoglobin Sodium Potassium Chloride Carbon Dioxide BUN Creatinine Glucose POC Glucose Lactic Acid 4.00 H* Calcium Magnesium AST ALT Ammonia Lactate Dehydrogenase Total Creatine Kinase CK-MB (CK-2) Troponin T NT-Pro-B Natriuret Pep Total Protein Albumin Triglycerides TSH Arterial Blood Glucose 247 H Arterial Blood Ionized Calcium 4.4 L Urine pH Urine WBC (Auto) Urine Creatinine 10/10/20 10/10/20 10/10/20 15:50 16:22 18:18 WBC RBC Hgb Hct RDW Lymph % (Auto) Lymph # (Auto) Seg Neutrophils % Lymphocytes % (Manual) Monocytes % (Manual) Seg Neutrophils # Seg Neutrophils # Man Lymphocytes # (Manual) Monocytes # (Manual) D-Dimer Heparin Anti-Xa Level ABG pH 7.171 L POC ABG pCO2 96.6 H POC ABG pO2 55.3 L ABG pO2 ABG HCO3 ABG O2 Saturation ABG Base Excess ABG Hemoglobin ABG Oxyhemoglobin 81.4 L ABG Sodium ABG Potassium ABG Chloride ABG Glucose 115 H VBG pH Oxyhemoglobin Carboxyhemoglobin Sodium Potassium Chloride Carbon Dioxide BUN Creatinine Glucose POC Glucose 132 H Lactic Acid Calcium Magnesium AST ALT Ammonia Lactate Dehydrogenase Total Creatine Kinase 1192 H CK-MB (CK-2) 21.7 H Troponin T 0.377 H* D NT-Pro-B Natriuret Pep Total Protein Albumin Triglycerides TSH Arterial Blood Glucose 115 H Arterial Blood Ionized Calcium Urine pH Urine WBC (Auto) Urine Creatinine 10/10/20 10/10/20 10/10/20 18:18 18:18 22:49 WBC 23.0 H RBC 5.12 H Hgb Hct RDW Lymph % (Auto) Lymph # (Auto) Seg Neutrophils % Lymphocytes % (Manual) 4.0 L Monocytes % (Manual) 9.0 H Seg Neutrophils # Seg Neutrophils # Man 13.8 H Lymphocytes # (Manual) 0.9 L Monocytes # (Manual) 2.1 H D-Dimer Heparin Anti-Xa Level ABG pH POC ABG pCO2 POC ABG pO2 ABG pO2 ABG HCO3 ABG O2 Saturation ABG Base Excess ABG Hemoglobin ABG Oxyhemoglobin ABG Sodium ABG Potassium ABG Chloride ABG Glucose VBG pH Oxyhemoglobin Carboxyhemoglobin Sodium 146 H Potassium Chloride Carbon Dioxide 34 H D BUN 27 H Creatinine 2.7 H Glucose 102 H POC Glucose Lactic Acid Calcium Magnesium AST 90 H ALT 66 H Ammonia Lactate Dehydrogenase Total Creatine Kinase CK-MB (CK-2) Troponin T 0.273 H* D NT-Pro-B Natriuret Pep Total Protein Albumin Triglycerides TSH Arterial Blood Glucose Arterial Blood Ionized Calcium Urine pH Urine WBC (Auto) Urine Creatinine 10/11/20 10/11/20 10/11/20 02:00 02:00 02:00 WBC 17.3 H RBC Hgb Hct RDW Lymph % (Auto) 3.9 L Lymph # (Auto) 0.7 L Seg Neutrophils % 93.0 H Lymphocytes % (Manual) Monocytes % (Manual) Seg Neutrophils # 16.1 H Seg Neutrophils # Man Lymphocytes # (Manual) Monocytes # (Manual) D-Dimer Heparin Anti-Xa Level ABG pH POC ABG pCO2 POC ABG pO2 ABG pO2 ABG HCO3 ABG O2 Saturation ABG Base Excess ABG Hemoglobin ABG Oxyhemoglobin ABG Sodium ABG Potassium ABG Chloride ABG Glucose VBG pH Oxyhemoglobin Carboxyhemoglobin Sodium 149 H Potassium 3.3 L Chloride 95.3 L Carbon Dioxide 37 H BUN 29 H Creatinine 2.6 H Glucose POC Glucose Lactic Acid Calcium Magnesium AST 80 H ALT 59 H Ammonia Lactate Dehydrogenase Total Creatine Kinase CK-MB (CK-2) Troponin T 0.201 H* D NT-Pro-B Natriuret Pep Total Protein Albumin 3.6 L Triglycerides TSH Arterial Blood Glucose Arterial Blood Ionized Calcium Urine pH Urine WBC (Auto) Urine Creatinine 10/11/20 10/11/20 10/11/20 03:51 08:35 11:15 WBC RBC Hgb Hct RDW Lymph % (Auto) Lymph # (Auto) Seg Neutrophils % Lymphocytes % (Manual) Monocytes % (Manual) Seg Neutrophils # Seg Neutrophils # Man Lymphocytes # (Manual) Monocytes # (Manual) D-Dimer Heparin Anti-Xa Level 0.22 L ABG pH 7.491 H POC ABG pCO2 57.6 H POC ABG pO2 ABG pO2 ABG HCO3 ABG O2 Saturation ABG Base Excess ABG Hemoglobin ABG Oxyhemoglobin ABG Sodium 150.0 H ABG Potassium 3.1 L ABG Chloride 96.0 L ABG Glucose 122 H VBG pH Oxyhemoglobin Carboxyhemoglobin Sodium Potassium Chloride Carbon Dioxide BUN Creatinine Glucose POC Glucose 151 H Lactic Acid Calcium Magnesium AST ALT Ammonia Lactate Dehydrogenase Total Creatine Kinase CK-MB (CK-2) Troponin T NT-Pro-B Natriuret Pep Total Protein Albumin Triglycerides TSH Arterial Blood Glucose 122 H Arterial Blood Ionized Calcium 3.9 L Urine pH Urine WBC (Auto) Urine Creatinine 10/11/20 10/11/20 10/11/20 13:30 13:30 13:30 WBC 15.0 H RBC Hgb Hct RDW Lymph % (Auto) Lymph # (Auto) Seg Neutrophils % Lymphocytes % (Manual) Monocytes % (Manual) Seg Neutrophils # Seg Neutrophils # Man Lymphocytes # (Manual) Monocytes # (Manual) D-Dimer Heparin Anti-Xa Level ABG pH POC ABG pCO2 POC ABG pO2 ABG pO2 ABG HCO3 ABG O2 Saturation ABG Base Excess ABG Hemoglobin ABG Oxyhemoglobin ABG Sodium ABG Potassium ABG Chloride ABG Glucose VBG pH Oxyhemoglobin Carboxyhemoglobin Sodium Potassium Chloride Carbon Dioxide BUN Creatinine Glucose POC Glucose Lactic Acid Calcium Magnesium AST ALT Ammonia Lactate Dehydrogenase Total Creatine Kinase CK-MB (CK-2) Troponin T NT-Pro-B Natriuret Pep Total Protein Albumin Triglycerides TSH Arterial Blood Glucose Arterial Blood Ionized Calcium Urine pH 9.0 H Urine WBC (Auto) 18.0 H Urine Creatinine 80.5 H 10/11/20 10/11/20 10/12/20 17:17 23:14 03:53 WBC RBC Hgb Hct RDW Lymph % (Auto) Lymph # (Auto) Seg Neutrophils % Lymphocytes % (Manual) Monocytes % (Manual) Seg Neutrophils # Seg Neutrophils # Man Lymphocytes # (Manual) Monocytes # (Manual) D-Dimer Heparin Anti-Xa Level ABG pH 7.545 H POC ABG pCO2 54.6 H POC ABG pO2 231.9 H ABG pO2 ABG HCO3 ABG O2 Saturation ABG Base Excess ABG Hemoglobin ABG Oxyhemoglobin 98.5 H ABG Sodium 150.5 H ABG Potassium 3.2 L ABG Chloride 96.0 L ABG Glucose 148 H VBG pH Oxyhemoglobin Carboxyhemoglobin Sodium Potassium Chloride Carbon Dioxide BUN Creatinine Glucose POC Glucose 121 H 135 H Lactic Acid Calcium Magnesium AST ALT Ammonia Lactate Dehydrogenase Total Creatine Kinase CK-MB (CK-2) Troponin T NT-Pro-B Natriuret Pep Total Protein Albumin Triglycerides TSH Arterial Blood Glucose 148 H Arterial Blood Ionized Calcium 3.8 L Urine pH Urine WBC (Auto) Urine Creatinine 10/12/20 10/12/20 10/12/20 04:00 05:10 05:12 WBC 14.3 H RBC Hgb 11.6 L Hct 35.2 L RDW Lymph % (Auto) Lymph # (Auto) Seg Neutrophils % Lymphocytes % (Manual) Monocytes % (Manual) Seg Neutrophils # Seg Neutrophils # Man Lymphocytes # (Manual) Monocytes # (Manual) D-Dimer Heparin Anti-Xa Level ABG pH POC ABG pCO2 POC ABG pO2 ABG pO2 ABG HCO3 ABG O2 Saturation ABG Base Excess ABG Hemoglobin ABG Oxyhemoglobin ABG Sodium ABG Potassium ABG Chloride ABG Glucose VBG pH Oxyhemoglobin Carboxyhemoglobin Sodium 155 H Potassium 3.3 L Chloride 97.9 L Carbon Dioxide 47 H* D BUN 50 H Creatinine 3.4 H Glucose 146 H POC Glucose 137 H Lactic Acid Calcium 8.0 L Magnesium AST ALT Ammonia Lactate Dehydrogenase Total Creatine Kinase CK-MB (CK-2) Troponin T 0.125 H* D NT-Pro-B Natriuret Pep Total Protein Albumin Triglycerides TSH Arterial Blood Glucose Arterial Blood Ionized Calcium Urine pH Urine WBC (Auto) Urine Creatinine 10/12/20 10/12/20 10/12/20 11:39 16:01 19:49 WBC RBC Hgb Hct RDW Lymph % (Auto) Lymph # (Auto) Seg Neutrophils % Lymphocytes % (Manual) Monocytes % (Manual) Seg Neutrophils # Seg Neutrophils # Man Lymphocytes # (Manual) Monocytes # (Manual) D-Dimer Heparin Anti-Xa Level ABG pH POC ABG pCO2 POC ABG pO2 ABG pO2 ABG HCO3 ABG O2 Saturation ABG Base Excess ABG Hemoglobin ABG Oxyhemoglobin ABG Sodium ABG Potassium ABG Chloride ABG Glucose VBG pH Oxyhemoglobin Carboxyhemoglobin Sodium 157 H Potassium 3.3 L Chloride Carbon Dioxide 47 H* BUN 52 H Creatinine 3.0 H Glucose 137 H POC Glucose 138 H 119 H Lactic Acid Calcium 8.0 L Magnesium AST ALT Ammonia Lactate Dehydrogenase Total Creatine Kinase CK-MB (CK-2) Troponin T NT-Pro-B Natriuret Pep Total Protein Albumin Triglycerides TSH Arterial Blood Glucose Arterial Blood Ionized Calcium Urine pH Urine WBC (Auto) Urine Creatinine 10/12/20 10/13/20 10/13/20 23:37 02:28 04:52 WBC RBC Hgb Hct RDW Lymph % (Auto) Lymph # (Auto) Seg Neutrophils % Lymphocytes % (Manual) Monocytes % (Manual) Seg Neutrophils # Seg Neutrophils # Man Lymphocytes # (Manual) Monocytes # (Manual) D-Dimer Heparin Anti-Xa Level ABG pH 7.485 H POC ABG pCO2 57.1 H POC ABG pO2 ABG pO2 ABG HCO3 ABG O2 Saturation ABG Base Excess ABG Hemoglobin ABG Oxyhemoglobin ABG Sodium 152.4 H ABG Potassium ABG Chloride ABG Glucose 129 H VBG pH Oxyhemoglobin Carboxyhemoglobin Sodium 155 H Potassium Chloride Carbon Dioxide 45 H* BUN 52 H Creatinine 2.7 H Glucose 121 H POC Glucose 131 H Lactic Acid Calcium Magnesium 2.40 H AST ALT Ammonia Lactate Dehydrogenase Total Creatine Kinase CK-MB (CK-2) Troponin T NT-Pro-B Natriuret Pep Total Protein Albumin Triglycerides 278 H TSH Arterial Blood Glucose 129 H Arterial Blood Ionized Calcium 4.1 L Urine pH Urine WBC (Auto) Urine Creatinine 10/13/20 10/13/20 10/13/20 04:52 05:13 11:37 WBC 14.7 H RBC Hgb 11.7 L Hct RDW 15.8 H Lymph % (Auto) Lymph # (Auto) Seg Neutrophils % Lymphocytes % (Manual) Monocytes % (Manual) Seg Neutrophils # Seg Neutrophils # Man Lymphocytes # (Manual) Monocytes # (Manual) D-Dimer Heparin Anti-Xa Level ABG pH POC ABG pCO2 POC ABG pO2 ABG pO2 ABG HCO3 ABG O2 Saturation ABG Base Excess ABG Hemoglobin ABG Oxyhemoglobin ABG Sodium ABG Potassium ABG Chloride ABG Glucose VBG pH Oxyhemoglobin Carboxyhemoglobin Sodium Potassium Chloride Carbon Dioxide BUN Creatinine Glucose POC Glucose 116 H 116 H Lactic Acid Calcium Magnesium AST ALT Ammonia Lactate Dehydrogenase Total Creatine Kinase CK-MB (CK-2) Troponin T NT-Pro-B Natriuret Pep Total Protein Albumin Triglycerides TSH Arterial Blood Glucose Arterial Blood Ionized Calcium Urine pH Urine WBC (Auto) Urine Creatinine 10/13/20 10/14/20 10/14/20 17:50 03:45 04:46 WBC 11.1 H RBC Hgb Hct RDW 15.3 H Lymph % (Auto) Lymph # (Auto) Seg Neutrophils % Lymphocytes % (Manual) Monocytes % (Manual) Seg Neutrophils # Seg Neutrophils # Man Lymphocytes # (Manual) Monocytes # (Manual) D-Dimer Heparin Anti-Xa Level ABG pH POC ABG pCO2 59.6 H POC ABG pO2 ABG pO2 ABG HCO3 ABG O2 Saturation ABG Base Excess ABG Hemoglobin ABG Oxyhemoglobin ABG Sodium 151.4 H ABG Potassium 3.3 L ABG Chloride ABG Glucose 138 H VBG pH Oxyhemoglobin Carboxyhemoglobin 1.6 H Sodium Potassium Chloride Carbon Dioxide BUN Creatinine Glucose POC Glucose 140 H Lactic Acid Calcium Magnesium AST ALT Ammonia Lactate Dehydrogenase Total Creatine Kinase CK-MB (CK-2) Troponin T NT-Pro-B Natriuret Pep Total Protein Albumin Triglycerides TSH Arterial Blood Glucose 138 H Arterial Blood Ionized Calcium 4.5 L Urine pH Urine WBC (Auto) Urine Creatinine 10/14/20 10/14/20 10/14/20 04:46 05:10 11:11 WBC RBC Hgb Hct RDW Lymph % (Auto) Lymph # (Auto) Seg Neutrophils % Lymphocytes % (Manual) Monocytes % (Manual) Seg Neutrophils # Seg Neutrophils # Man Lymphocytes # (Manual) Monocytes # (Manual) D-Dimer Heparin Anti-Xa Level ABG pH POC ABG pCO2 POC ABG pO2 ABG pO2 ABG HCO3 ABG O2 Saturation ABG Base Excess ABG Hemoglobin ABG Oxyhemoglobin ABG Sodium ABG Potassium ABG Chloride ABG Glucose VBG pH Oxyhemoglobin Carboxyhemoglobin Sodium 152 H Potassium 3.5 L Chloride Carbon Dioxide 38 H D BUN 46 H Creatinine 2.3 H Glucose 127 H POC Glucose 116 H 114 H Lactic Acid Calcium Magnesium AST ALT Ammonia Lactate Dehydrogenase Total Creatine Kinase CK-MB (CK-2) Troponin T NT-Pro-B Natriuret Pep Total Protein Albumin Triglycerides TSH Arterial Blood Glucose Arterial Blood Ionized Calcium Urine pH Urine WBC (Auto) Urine Creatinine 10/14/20 10/14/20 10/15/20 18:53 23:23 04:12 WBC RBC Hgb Hct RDW Lymph % (Auto) Lymph # (Auto) Seg Neutrophils % Lymphocytes % (Manual) Monocytes % (Manual) Seg Neutrophils # Seg Neutrophils # Man Lymphocytes # (Manual) Monocytes # (Manual) D-Dimer Heparin Anti-Xa Level ABG pH POC ABG pCO2 POC ABG pO2 ABG pO2 ABG HCO3 ABG O2 Saturation ABG Base Excess ABG Hemoglobin ABG Oxyhemoglobin ABG Sodium ABG Potassium ABG Chloride ABG Glucose VBG pH Oxyhemoglobin Carboxyhemoglobin Sodium 149 H Potassium 3.2 L Chloride Carbon Dioxide 37 H BUN 40 H Creatinine 2.0 H Glucose 124 H POC Glucose 128 H 113 H Lactic Acid Calcium Magnesium AST ALT Ammonia Lactate Dehydrogenase Total Creatine Kinase CK-MB (CK-2) Troponin T NT-Pro-B Natriuret Pep Total Protein Albumin Triglycerides TSH Arterial Blood Glucose Arterial Blood Ionized Calcium Urine pH Urine WBC (Auto) Urine Creatinine 10/15/20 10/15/20 10/15/20 04:22 11:39 17:36 WBC RBC Hgb Hct RDW Lymph % (Auto) Lymph # (Auto) Seg Neutrophils % Lymphocytes % (Manual) Monocytes % (Manual) Seg Neutrophils # Seg Neutrophils # Man Lymphocytes # (Manual) Monocytes # (Manual) D-Dimer Heparin Anti-Xa Level ABG pH POC ABG pCO2 POC ABG pO2 ABG pO2 115.0 H ABG HCO3 38.1 H ABG O2 Saturation ABG Base Excess 11.3 H ABG Hemoglobin 11.0 L ABG Oxyhemoglobin ABG Sodium ABG Potassium ABG Chloride ABG Glucose VBG pH Oxyhemoglobin Carboxyhemoglobin Sodium Potassium Chloride Carbon Dioxide BUN Creatinine Glucose POC Glucose 123 H 118 H Lactic Acid Calcium Magnesium AST ALT Ammonia Lactate Dehydrogenase Total Creatine Kinase CK-MB (CK-2) Troponin T NT-Pro-B Natriuret Pep Total Protein Albumin Triglycerides TSH Arterial Blood Glucose Arterial Blood Ionized Calcium Urine pH Urine WBC (Auto) Urine Creatinine 10/15/20 10/16/20 10/16/20 23:18 03:13 05:10 WBC RBC Hgb Hct RDW Lymph % (Auto) Lymph # (Auto) Seg Neutrophils % Lymphocytes % (Manual) Monocytes % (Manual) Seg Neutrophils # Seg Neutrophils # Man Lymphocytes # (Manual) Monocytes # (Manual) D-Dimer Heparin Anti-Xa Level ABG pH POC ABG pCO2 POC ABG pO2 ABG pO2 104.5 H ABG HCO3 35.1 H ABG O2 Saturation ABG Base Excess 9.5 H ABG Hemoglobin 7.9 L ABG Oxyhemoglobin ABG Sodium ABG Potassium ABG Chloride ABG Glucose VBG pH Oxyhemoglobin Carboxyhemoglobin Sodium Potassium 3.3 L Chloride Carbon Dioxide 33 H BUN 37 H Creatinine 1.4 H Glucose 148 H POC Glucose 135 H Lactic Acid Calcium Magnesium 2.40 H AST ALT Ammonia Lactate Dehydrogenase Total Creatine Kinase CK-MB (CK-2) Troponin T NT-Pro-B Natriuret Pep Total Protein Albumin Triglycerides TSH Arterial Blood Glucose Arterial Blood Ionized Calcium Urine pH Urine WBC (Auto) Urine Creatinine 10/16/20 10/16/20 10/16/20 06:36 11:08 17:07 WBC RBC Hgb Hct RDW Lymph % (Auto) Lymph # (Auto) Seg Neutrophils % Lymphocytes % (Manual) Monocytes % (Manual) Seg Neutrophils # Seg Neutrophils # Man Lymphocytes # (Manual) Monocytes # (Manual) D-Dimer Heparin Anti-Xa Level ABG pH POC ABG pCO2 POC ABG pO2 ABG pO2 ABG HCO3 ABG O2 Saturation ABG Base Excess ABG Hemoglobin ABG Oxyhemoglobin ABG Sodium ABG Potassium ABG Chloride ABG Glucose VBG pH Oxyhemoglobin Carboxyhemoglobin Sodium Potassium Chloride Carbon Dioxide BUN Creatinine Glucose POC Glucose 150 H 111 H 132 H Lactic Acid Calcium Magnesium AST ALT Ammonia Lactate Dehydrogenase Total Creatine Kinase CK-MB (CK-2) Troponin T NT-Pro-B Natriuret Pep Total Protein Albumin Triglycerides TSH Arterial Blood Glucose Arterial Blood Ionized Calcium Urine pH Urine WBC (Auto) Urine Creatinine 10/16/20 10/17/20 10/17/20 23:38 03:32 05:10 WBC RBC Hgb Hct RDW Lymph % (Auto) Lymph # (Auto) Seg Neutrophils % Lymphocytes % (Manual) Monocytes % (Manual) Seg Neutrophils # Seg Neutrophils # Man Lymphocytes # (Manual) Monocytes # (Manual) D-Dimer Heparin Anti-Xa Level ABG pH POC ABG pCO2 POC ABG pO2 ABG pO2 ABG HCO3 ABG O2 Saturation ABG Base Excess ABG Hemoglobin ABG Oxyhemoglobin ABG Sodium ABG Potassium ABG Chloride ABG Glucose VBG pH Oxyhemoglobin Carboxyhemoglobin Sodium 146 H Potassium Chloride Carbon Dioxide 32 H BUN 57 H Creatinine 2.4 H D Glucose 124 H POC Glucose 117 H 122 H Lactic Acid Calcium Magnesium AST ALT Ammonia Lactate Dehydrogenase Total Creatine Kinase CK-MB (CK-2) Troponin T NT-Pro-B Natriuret Pep Total Protein Albumin Triglycerides TSH Arterial Blood Glucose Arterial Blood Ionized Calcium Urine pH Urine WBC (Auto) Urine Creatinine Chest x-ray: image reviewed Allied health notes reviewed: RT
--- NOTE | 2020-10-17 07:11 | Progress Note ---
Assessment and Plan Critical care statement The high probability OF a clinically significant sudden or life-threatening deterioration of the cardiorespiratory system and endocrine system required my full and direct attention, intervention and postoperative management. The aggregate critical care time was 40 minutes. The time is in addition to time spent performing reported procedures but includes the followin: Data review and interpretation 2: Patient assessment and monitoring of vital signs 3: Documentation 4:: Medication orders and management - Patient Problems (1) Cardiac arrest Current Visit: Yes Status: Acute Plan to address problem: Patient required s/p cardiac arrest x2 in the emergency room Patient is hypertensive and bradycardic Patient intubated and central line placed (2) Acute respiratory failure with hypoxia and hypercarbia Current Visit: Yes Status: Acute Plan to address problem: Patient intubated and continue vent support Control Room Helper consult appreciated (3) MOE (acute kidney injury) Current Visit: Yes Status: Acute Plan to address problem: IV fluids for now (4) Lactic acidosis Current Visit: Yes Status: Acute Plan to address problem: Possible sepsis versus lactic acid elevation secondary to cardiac arrest We'll treat with broad-spectrum antibiotics especially cefepime and vancomycin (5) Bilateral pneumonia Current Visit: Yes Status: Acute Plan to address problem: Possible Covid pneumonia Treat as community-acquired pneumonia for now Threesepsis for now Pressors for now ID consult requested (6) Pneumonia due to COVID-19 virus Current Visit: Yes Status: Acute Plan to address problem: A high possibility Coronavirus PCR to be done IV Decadron initiated (7) Hypotension Current Visit: Yes Status: Acute (8) Sepsis with hypotension Current Visit: Yes Status: Acute Plan to address problem: Treat sepsis and hypotension with broad-spectrum antibiotics and pressors (9) Hypokalemia Current Visit: Yes Status: Acute Plan to address problem: Supplemented (10) DVT prophylaxis Current Visit: Yes Status: Acute Plan to address problem: On heparin and GI prophylaxis Subjective Date of service: 10/16/20 Principal diagnosis: Cardiac arrest; Septic Shock; Ac. hypoxemic & hypercapnic resp failure; MOE Interval history: History Interval history: This is a 55-year-old male with hypertension, asthma, obesity in the emergency by presents the emergency department on 10/10 after receiving a Covid vaccine being found unresponsive in his car in the emergency room by with no pulse and ACLS protocol was initiated from his car to emergency room #21 where it was continued. Patient was intubated after ROSC was achieved and a central line was placed and the patient was initiated on pressors. In the emergency room patient seems to have seizure-like activity and then collapsed and was unresponsive with no palpable pulse and ACLS was again initiated patient with achievement of ROSC. Patient again coded with ACLS protocol in the CT room. Upon arrival to the ICU patient again coded and ROSC was achieved and he was placed on epinephrine, Lasix, heparin and sodium bicarbonate drip and sedated with propofol. An NG tube was placed, A-line was placed. Patient was admitted to the hospitalist service with consult to [facility], nephrology, infectious disease and cardiology. 10/11: Patient COVID-19 PCR is pending and he remains on mechanical ventilation, examination on assist control 400/30/12/0.95. Patient is scheduled for an echocardiogram and we will obtain bilateral lower extremity Doppler ultrasound given elevated D-dimer. Patient was supposed to have a CTA chest when he coded yesterday. We will begin trickle feeding. This morning patient was on a heparin drip and was noted to have bloody drainage from his NG tube. Heparin drip was discontinued. 10/12: Patient remains on propofol and Lasix drip at the time my examination and he is on assist control 400/25/12/0.60. Patient is hypokalemic this morning which was repleted. Nephrlogy discontinued Lasix drip and Diamox. Patient is hypertensive and has been started on hydralazine and beta-shital IV. He has been titrated off his vasopressors since yesterday. Vancomycin discontinued. Patient is currently on cefepime and azithromycin. 10/13: Sedation vacation attempted today and patient was not responsive to verbal or painful stimuli, does not track or focus or follow commands. This morning the patient has some respiratory alkalosis on ABG, hypernatremia and metabolic alkalosis on BMP. His kidney functions has improved slightly. Patient still has leukocytosis and infectious disease was like to continue antibiotic therapy. GI evaluated the patient yesterday and started the patient on PPI does not plan to scope at this time. At the time my examination patient assist-control 400/20/12/0.40 and sedated on propofol at 20. 4/2: GI has recommended a CT abdomen since there is increased output from OG tube and an MRI brain without contrast has been ordered per neurology recommendations. EEG is pending and the patient has been started on Keppra per neurology.. Nutrition has been consulted for initiation of parenteral nutrition. Patient remains sedated with propofol and his hypernatremia, leukocytosis, acute kidney injury and metabolic alkalosis is improving. Patient has hypokalemia today which was repleted. At the time of my examination patient was on assist control 400/14/10/0.40 and CCM has dropped his rate to 12 and PEEP to 8. We have labs ordered for a.m. He was given a clonidine patch given persistent hypertension and he remains on D5 water per nephrology. 10/15/20 Same condition 10/16 Same condition Objective - Exam Narrative Exam: Intubated - Constitutional Vitals: Vital Signs - 12hr 10/16/20 10/16/20 10/16/20 19:16 19:30 19:40 Temperature Pulse Rate 86 91 H 85 Pulse Rate [ From Monitor] Respiratory 16 16 Rate Blood Pressure 120/66 113/74 113/74 O2 Sat by Pulse 96 96 97 Oximetry 10/16/20 10/16/20 10/16/20 19:45 20:00 20:10 Temperature 98.8 F Pulse Rate 92 H 94 H 92 H Pulse Rate [ From Monitor] Respiratory 20 19 Rate Blood Pressure 113/76 152/94 O2 Sat by Pulse 96 97 Oximetry 10/16/20 10/16/20 10/16/20 20:16 20:30 20:46 Temperature Pulse Rate 91 H 79 82 Pulse Rate [ From Monitor] Respiratory 16 16 16 Rate Blood Pressure 158/88 159/85 113/76 O2 Sat by Pulse 97 97 97 Oximetry 10/16/20 10/16/20 10/16/20 21:00 21:16 21:30 Temperature Pulse Rate 78 83 77 Pulse Rate [ From Monitor] Respiratory 14 13 16 Rate Blood Pressure 111/52 O2 Sat by Pulse 96 97 95 Oximetry 10/16/20 10/16/20 10/16/20 21:46 22:00 22:15 Temperature Pulse Rate 81 79 83 Pulse Rate [ From Monitor] Respiratory 11 L 14 14 Rate Blood Pressure 120/77 O2 Sat by Pulse 95 98 97 Oximetry 10/16/20 10/16/20 10/16/20 22:30 22:45 23:00 Temperature Pulse Rate 81 87 83 Pulse Rate [ From Monitor] Respiratory 14 12 14 Rate Blood Pressure 97/55 115/70 103/54 O2 Sat by Pulse 97 96 96 Oximetry 10/16/20 10/16/20 10/16/20 23:15 23:30 23:45 Temperature Pulse Rate 89 83 85 Pulse Rate [ From Monitor] Respiratory 13 13 12 Rate Blood Pressure 103/54 97/62 95/58 O2 Sat by Pulse 96 96 96 Oximetry 10/16/20 10/17/20 10/17/20 23:50 00:00 00:15 Temperature 99.0 F Pulse Rate 91 H 94 H 93 H Pulse Rate [ 87 From Monitor] Respiratory 13 11 L 10 L Rate Blood Pressure 95/58 88/49 88/49 O2 Sat by Pulse 96 96 96 Oximetry 10/17/20 10/17/20 10/17/20 00:23 00:30 00:45 Temperature Pulse Rate 94 H 95 H 89 Pulse Rate [ From Monitor] Respiratory 11 L 13 Rate Blood Pressure 88/49 79/47 98/49 O2 Sat by Pulse 95 96 Oximetry 10/17/20 10/17/20 10/17/20 01:00 01:15 01:30 Temperature Pulse Rate 87 93 H 90 Pulse Rate [ From Monitor] Respiratory 11 L 11 L 10 L Rate Blood Pressure 96/65 93/59 98/59 O2 Sat by Pulse 96 96 95 Oximetry 10/17/20 10/17/20 10/17/20 01:45 02:00 02:15 Temperature Pulse Rate 90 85 89 Pulse Rate [ From Monitor] Respiratory 10 L 10 L 11 L Rate Blood Pressure 106/58 111/58 107/56 O2 Sat by Pulse 95 96 96 Oximetry 10/17/20 10/17/20 10/17/20 02:30 02:45 03:00 Temperature Pulse Rate 85 87 85 Pulse Rate [ From Monitor] Respiratory 13 13 12 Rate Blood Pressure 107/56 102/72 118/65 O2 Sat by Pulse 97 95 96 Oximetry 10/17/20 10/17/20 10/17/20 03:16 03:30 03:45 Temperature Pulse Rate 92 H 90 86 Pulse Rate [ From Monitor] Respiratory 13 13 12 Rate Blood Pressure 98/63 98/63 107/56 O2 Sat by Pulse 96 96 95 Oximetry 10/17/20 10/17/20 10/17/20 03:57 04:00 04:15 Temperature 99.3 F Pulse Rate 88 93 H Pulse Rate [ 86 From Monitor] Respiratory 13 14 Rate Blood Pressure 107/56 111/57 O2 Sat by Pulse 96 96 Oximetry 10/17/20 10/17/20 10/17/20 04:20 04:30 04:46 Temperature Pulse Rate 86 83 89 Pulse Rate [ From Monitor] Respiratory 15 14 Rate Blood Pressure 111/57 122/93 114/72 O2 Sat by Pulse 96 96 96 Oximetry 10/17/20 10/17/20 10/17/20 05:00 05:15 05:30 Temperature Pulse Rate 84 86 82 Pulse Rate [ From Monitor] Respiratory 13 14 16 Rate Blood Pressure 113/67 108/63 110/68 O2 Sat by Pulse 96 96 96 Oximetry 10/17/20 10/17/20 05:45 06:00 Temperature Pulse Rate 87 95 H Pulse Rate [ From Monitor] Respiratory 16 12 Rate Blood Pressure 123/69 122/69 O2 Sat by Pulse 96 95 Oximetry General appearance: Present: no acute distress, well-nourished - EENT Eyes: PERRL, EOM intact ENT: hearing intact, clear oral mucosa Ears: bilateral: normal - Neck Neck: supple, normal ROM - Respiratory Respiratory effort: normal Respiratory: bilateral: CTA - Breasts Breasts: normal - Cardiovascular Rhythm: regular Heart Sounds: Present: S1 & S2. Absent: gallop, rub Extremities: pulses intact, No edema, normal color, Full ROM - Gastrointestinal General gastrointestinal: Present: soft, non-tender, non-distended, normal bowel sounds - Genitourinary Male genitourinary: normal - Integumentary Integumentary: clear, warm, dry - Musculoskeletal Musculoskeletal: 1, strength equal bilaterally - Neurologic Neurologic: moves all extremities - Psychiatric Psychiatric: memory intact, appropriate mood/affect, intact judgment & insight - Labs CBC & Chem 7: 10/18/20 03:27 10/18/20 03:27 Labs: Abnormal lab results 10/16/20 10/16/20 10/16/20 Range/Units 06:36 11:08 17:07 Sodium (137-145) mmol/L Carbon Dioxide (22-30) mmol/L BUN (9-20) mg/dL Creatinine (0.8-1.3) mg/dL Glucose (75-100) mg/dL POC Glucose 150 H 111 H 132 H (70-105) mg/dL 0410/17/20 10/17/20 Range/Units 23:38 03:32 05:10 Sodium 146 H (137-145) mmol/L Carbon Dioxide 32 H (22-30) mmol/L BUN 57 H (9-20) mg/dL Creatinine 2.4 H D (0.8-1.3) mg/dL Glucose 124 H (75-100) mg/dL POC Glucose 117 H 122 H (70-105) mg/dL HEART Score - HEART Score EKG: Non-specific Age: 45-65 Troponin: Troponin T 0.125 ng/mL (0.00-0.029) H* D 10/12/20 04:00 Troponin: 1-3x normal limit - Critical Actions Critical Actions: 4-6 pts:12-16.6% risk of adverse cardiac event. Should be admitted
[2020-10-17] MEDS: GLYCOPYRROLATE 0.4 MG/2 ML INJ IV SCH ×3 (08:42→22:28)
[2020-10-17] MEDS: ACETAMINOPHEN 325 MG TAB PO PRN ×2 (08:43→19:52)
[2020-10-17] MEDS: DOCUSATE SODIUM 100 MG/10 ML ORAL LIQD PO SCH ×2 (10:04→21:46)
[2020-10-17] MEDS: HEPARIN 5,000 UNIT/1 ML VIAL SUB-Q SCH ×2 (10:04→22:01)
[2020-10-17] MEDS: PANTOPRAZOLE 40 MG INJ IV SCH ×2 (10:04→21:46)
[2020-10-17] MEDS: SCOPOLAMINE TRANSDERMAL PATCH 72 HR TD SCH (10:05)
[2020-10-17] MEDS: POLYETHYLENE GLYCOL 3350 17 GM POWDER PO SCH (10:05)
--- NOTE | 2020-10-17 10:53 | Progress Note ---
Assessment and Plan Cultures: SARS CoV2 PCR: negative. 10/10/2020 blood culture: No growth 10/10/2020 ET aspirate culture: Usual respiratory antonio 10/11/2020 urine culture: no growth A/P: 55-year-old male with hypertension, asthma, obesity came into the emergency room after receiving the Covid vaccine and passing out in the car at the emergency room bay. Patient was found to be unresponsive with no pulse, ACLS was initiated: #Sepsis, likely secondary to pneumonia. COVID negative. Noted low-grade fever. Repeat procalcitonin low. #Right-sided pneumonia: Possible aspiration during ACLS. Procalcitonin low. #Acute hypoxic respiratory failure: On mechanical ventilation. #MOE: Renally dose antibiotics. Worsening. Renal on board. #Elevated LFTs: Likely from sepsis #Urine tox screen positive for THC #Possible sinusitis from endotracheal intubation and mechanical ventilation: Initial CT head did not reveal any evidence of sinusitis. Patient is already on antibiotics. #Acute encephalopathy: neurology on board, evaluation in process. #UTI: Urine culture no growth. Recs: -Monitor fever -Remove Tuttle catheter as possible, noted purulence at the urethral exit site -Continue cefepime D6 of 7 will follow Kylah Carson MD [facility] ([facility]) Office [phone] Subjective Date of service: 10/17/20 Principal diagnosis: Cardiac arrest; Septic Shock; Ac. hypoxemic & hypercapnic resp failure; MOE Interval history: Patient remains intubated, FiO2 35%, PEEP of 8, sedated on fentanyl. Objective - Exam Narrative Exam: General appearance: Sedated intubated Eyes: anicteric sclerae, moist conjunctivae; no lid-lag; PERRLA HENT: Normocephalic, Atraumatic; normal external ears, nares open, oropharynx endotracheal tube in place Neck: supple, tracheal midline, no JVD Lungs: Diminished breath sound bilaterally CV: RRR no murmur Abdomen: Soft, nontender Extremities: no edema, no cyanosis Skin: No rash. Psych: Sedated Neuro: Sedated Tuttle catheter in place with slight hematuria and purulent at the urethral exit site. - Constitutional Vitals: Vital Signs Temp Pulse Resp BP Pulse Ox 100.0 F H 99 H 12 109/63 95 10/17/20 07:31 10/17/20 09:30 10/17/20 09:30 10/17/20 09:30 10/17/20 09:30 Temperature -Last 24 Hours Temperature 100.0 F Temperature 99.3 F Temperature 99.0 F Temperature 98.8 F Temperature 98.8 F Temperature 98.4 F - Labs CBC & Chem 7: 10/16/20 03:13 10/17/20 03:32 Labs: Abnormal lab results 10/16/20 10/16/20 10/16/20 Range/Units 06:36 11:08 17:07 Sodium (137-145) mmol/L Carbon Dioxide (22-30) mmol/L BUN (9-20) mg/dL Creatinine (0.8-1.3) mg/dL Glucose (75-100) mg/dL POC Glucose 150 H 111 H 132 H (70-105) mg/dL Phosphorus (2.5-4.5) mg/dL 10/16/20 10/17/20 10/17/20 Range/Units 23:38 03:32 03:32 Sodium 146 H (137-145) mmol/L Carbon Dioxide 32 H (22-30) mmol/L BUN 57 H (9-20) mg/dL Creatinine 2.4 H D (0.8-1.3) mg/dL Glucose 124 H (75-100) mg/dL POC Glucose 117 H (70-105) mg/dL Phosphorus 5.20 H D (2.5-4.5) mg/dL 10/17/20 Range/Units 05:10 Sodium (137-145) mmol/L Carbon Dioxide (22-30) mmol/L BUN (9-20) mg/dL Creatinine (0.8-1.3) mg/dL Glucose (75-100) mg/dL POC Glucose 122 H (70-105) mg/dL Phosphorus (2.5-4.5) mg/dL
[2020-10-17] MEDS: CHLOROTHIAZIDE 500 MG VIAL IV SCH (12:30)
--- NOTE | 2020-10-17 12:49 | Progress Note ---
Assessment and Plan 1. Acute kidney injury: Vasomotor MOE in the setting of Cardiac arrest and shock. Renal US negative for hydro. Monitor renal function. Creatinine level increased today. Follow bladder scan. Avoid nephrotoxic agents. Meds dosage based on GFR. 2. FEN: Volume overload, improved, monitor. Hypernatremia, sodium level is better, monitor. Metabolic alkalosis, improving, monitor. On TPN. Monitor lytes and volume status. 3. Acute hypoxic respiratory failure, POA: 2/2 PNA and CHF. COVID test negative. Intubated on vent. 4. Sepsis, POA: 2/2 PNA. Abx. 5. NSTEMI type II: Post cardiac arrest EKG showed no acute ischemic changes. Was on Heparin gtt. Followed by Cards. 6. Acute CHF: Echo showed Normal EF and mild DD. 7. S/p Cardiac arrest. 8. GI bleed: Followed by GI. 9. Elevated Transaminases: Trend. 10. HTN: Monitor. Subjective: Patient was seen and examined at the bedside. Objective: General appearance: well-developed, appears stated age, intubated, on vent HEENT: ATNC, MONTSE Neck: trachea midline Respiratory: ctab Heart: regular, S1S2, no murmur Gastrointestinal: soft, normoactive bowel sounds, not tender Integumentary: no rash, warm and dry Ext: no edema Neurologic: not responding Musculoskeletal: no obvious deformity : condom catheter Subjective Date of service: 10/17/20 Principal diagnosis: Cardiac arrest; Septic Shock; Ac. hypoxemic & hypercapnic resp failure; MOE Objective - Vital Signs Vital signs: Vital Signs - 12hr 10/17/20 10/17/20 10/17/20 01:00 01:15 01:30 Temperature Pulse Rate 87 93 H 90 Pulse Rate [ From Monitor] Respiratory 11 L 11 L 10 L Rate Blood Pressure 96/65 93/59 98/59 O2 Sat by Pulse 96 96 95 Oximetry 10/17/20 10/17/20 10/17/20 01:45 02:00 02:15 Temperature Pulse Rate 90 85 89 Pulse Rate [ From Monitor] Respiratory 10 L 10 L 11 L Rate Blood Pressure 106/58 111/58 107/56 O2 Sat by Pulse 95 96 96 Oximetry 10/17/20 10/17/20 10/17/20 02:30 02:45 03:00 Temperature Pulse Rate 85 87 85 Pulse Rate [ From Monitor] Respiratory 13 13 12 Rate Blood Pressure 107/56 102/72 118/65 O2 Sat by Pulse 97 95 96 Oximetry 10/17/20 10/17/20 10/17/20 03:16 03:30 03:45 Temperature Pulse Rate 92 H 90 86 Pulse Rate [ From Monitor] Respiratory 13 13 12 Rate Blood Pressure 98/63 98/63 107/56 O2 Sat by Pulse 96 96 95 Oximetry 10/17/20 10/17/20 10/17/20 03:57 04:00 04:15 Temperature 99.3 F Pulse Rate 88 93 H Pulse Rate [ 86 From Monitor] Respiratory 13 14 Rate Blood Pressure 107/56 111/57 O2 Sat by Pulse 96 96 Oximetry 10/17/20 10/17/20 10/17/20 04:20 04:30 04:46 Temperature Pulse Rate 86 83 89 Pulse Rate [ From Monitor] Respiratory 15 14 Rate Blood Pressure 111/57 122/93 114/72 O2 Sat by Pulse 96 96 96 Oximetry 10/17/20 10/17/20 10/17/20 05:00 05:15 05:30 Temperature Pulse Rate 84 86 82 Pulse Rate [ From Monitor] Respiratory 13 14 16 Rate Blood Pressure 113/67 108/63 110/68 O2 Sat by Pulse 96 96 96 Oximetry 10/17/20 10/17/20 10/17/20 05:45 06:00 06:15 Temperature Pulse Rate 87 95 H 86 Pulse Rate [ From Monitor] Respiratory 16 12 14 Rate Blood Pressure 123/69 122/69 122/65 O2 Sat by Pulse 96 95 96 Oximetry 10/17/20 10/17/20 10/17/20 06:30 06:45 07:00 Temperature Pulse Rate 93 H 87 90 Pulse Rate [ From Monitor] Respiratory 14 13 14 Rate Blood Pressure 113/60 101/61 120/60 O2 Sat by Pulse 96 96 96 Oximetry 10/17/20 10/17/20 10/17/20 07:15 07:30 07:31 Temperature 100.0 F H Pulse Rate 85 93 H Pulse Rate [ From Monitor] Respiratory 14 15 Rate Blood Pressure 129/69 115/63 O2 Sat by Pulse 96 96 Oximetry 10/17/20 10/17/20 10/17/20 07:45 08:00 08:05 Temperature Pulse Rate 88 84 97 H Pulse Rate [ 90 From Monitor] Respiratory 14 16 Rate Blood Pressure 107/66 112/64 114/65 O2 Sat by Pulse 96 95 97 Oximetry 10/17/20 10/17/20 10/17/20 08:15 08:30 08:46 Temperature Pulse Rate 84 86 97 H Pulse Rate [ From Monitor] Respiratory 14 13 15 Rate Blood Pressure 112/61 114/65 119/71 O2 Sat by Pulse 96 97 96 Oximetry 10/17/20 10/17/20 10/17/20 09:00 09:15 09:30 Temperature Pulse Rate 103 H 99 H 99 H Pulse Rate [ From Monitor] Respiratory 14 13 12 Rate Blood Pressure 126/73 127/66 109/63 O2 Sat by Pulse 96 96 95 Oximetry 10/17/20 10/17/20 10/17/20 09:46 10:00 10:15 Temperature Pulse Rate 101 H 109 H 95 H Pulse Rate [ From Monitor] Respiratory 12 12 13 Rate Blood Pressure 107/60 107/59 103/66 O2 Sat by Pulse 96 95 96 Oximetry 10/17/20 10/17/20 10/17/20 10:30 10:46 11:00 Temperature Pulse Rate 98 H 97 H 104 H Pulse Rate [ From Monitor] Respiratory 13 13 15 Rate Blood Pressure 100/66 120/55 120/55 O2 Sat by Pulse 96 95 96 Oximetry 10/17/20 10/17/20 10/17/20 11:15 11:30 11:45 Temperature Pulse Rate 96 H 97 H 95 H Pulse Rate [ From Monitor] Respiratory 13 14 13 Rate Blood Pressure 110/64 110/64 136/61 O2 Sat by Pulse 95 95 95 Oximetry 10/17/20 10/17/20 10/17/20 12:00 12:15 12:24 Temperature Pulse Rate 95 H 92 H 96 H Pulse Rate [ 98 H From Monitor] Respiratory 16 14 Rate Blood Pressure 119/69 117/69 117/69 O2 Sat by Pulse 95 95 95 Oximetry 10/17/20 12:30 Temperature Pulse Rate 94 H Pulse Rate [ From Monitor] Respiratory 13 Rate Blood Pressure 117/69 O2 Sat by Pulse 95 Oximetry - Lab 10/16/20 03:13 10/17/20 03:32 Most recent lab results ABG pH 7.419 pH Units (7.350-7.450) 10/16/20 05:10 ABG pCO2 55.5 mm Hg 10/16/20 05:10 ABG pO2 104.5 mm Hg (80.0-90.0) H 10/16/20 05:10 ABG HCO3 35.1 mmol/L (20.0-26.0) H 10/16/20 05:10 ABG O2 Saturation 97.7 % (95.0-99.0) 10/16/20 05:10 Calcium 8.8 mg/dL (8.4-10.2) 10/17/20 03:32 Phosphorus 5.20 mg/dL (2.5-4.5) H D 10/17/20 03:32 Magnesium 2.30 mg/dL (1.7-2.3) 10/17/20 03:32 Urine Creatinine 80.5 mg/dL (0.1-20.0) H 10/11/20 13:30 Urine Sodium 110 mmol/L 10/11/20 13:30 Medications & Allergies - Medications Allergies/Adverse Reactions: Allergies No Known Allergies Allergy (Unverified 07/06/13 15:19) Home Medications: Home Medications Medication Instructions Recorded Confirmed Last Taken Type Albuterol Sulfate [Ventolin HFA] 2 puff IH Q4H PRN #1 hfa.aer.ad 07/06/13 Unknown Rx Prednisone 40 mg PO QDAY #8 tablet 07/06/13 Unknown Rx Albuterol Mdi (or & Nicu Only) 2 puff IH Q4H PRN #1 inha 07/07/13 Unknown Rx [ProAir HFA Inhaler] Azithromycin [Zithromax Z-KYLE] 500 mg PO QDAY #5 tab 07/07/13 Unknown Rx HYDROcodone/APAP 5-325 [[place] 2 each PO Q6H PRN #30 tablet 07/07/13 Unknown Rx 5-325 mg TAB] predniSONE [Deltasone] 40 mg PO QDAY #10 tablet 07/07/13 Unknown Rx Active Medications: Generic Name Dose Route Start Last Admin Trade Name Freq PRN Reason Stop Dose Admin Acetaminophen 650 mg 10/10/20 21:51 10/17/20 08:43 Acetaminophen 325 Mg Tab PO 650 mg Q4H PRN Administration Pain MILD(1-3)/Fever >100.5/[place] Acetaminophen 650 mg 10/11/20 11:24 10/11/20 12:05 Acetaminophen 650 Mg Rect Supp [place] 650 mg Q6H PRN Administration Fever >101 Albuterol 2.5 mg 10/11/20 13:12 Albuterol 2.5 Mg/3 Ml Nebu IH Q6HRT PRN Shortness Of Breath Lipase/Protease/Amylase 1 each 10/10/20 22:18 Lipase 10,500/Protease 25,000/Amylase 43,750 (Units) Dr Santana FEEDTUBE PRN PRN For Clogged Feeding Tube Chlorothiazide Sodium 500 mg 10/14/20 10:00 10/17/20 12:30 Chlorothiazide 500 Mg Vial IV 500 mg QDAY PEPITO Administration Clonidine HCl 0.3 mg 10/14/20 15:00 10/14/20 16:00 Clonidine Tts 0.3 Mg/24 Hr Patch TD 0.3 mg Fr PEPITO Administration Docusate Sodium 100 mg 10/16/20 22:00 10/17/20 10:04 Docusate Sodium 100 Mg/10 Ml Oral Liqd PO 100 mg BID PEPITO Administration Fentanyl 50 mcg 10/16/20 14:10 Fentanyl 100 Mcg/2 Ml Inj IV Q10MIN PRN ANALGESIA Glycopyrrolate 0.2 mg 10/16/20 15:00 10/17/20 08:42 Glycopyrrolate 0.4 Mg/2 Ml Inj IV 10/19/20 14:59 0.2 mg Q8H PEPITO Administration Heparin Sodium (Porcine) 5,000 unit 10/11/20 22:00 10/17/20 10:04 Heparin 5,000 Unit/1 Ml Vial SUB-Q 5,000 unit Q12HR PEPITO Administration Hydralazine HCl 5 mg 10/15/20 20:25 10/16/20 14:46 Hydralazine 20 Mg/1 Ml Inj IV 5 mg Q6H PRN Administration Hypertension Hydromorphone HCl 0.5 mg 10/10/20 21:51 10/15/20 14:45 Hydromorphone 1 Mg/1 Ml Inj IV 0.5 mg Q3H PRN Administration Pain , Severe (7-10) Hydrophilic Ointment 1 applic 10/10/20 10:34 Lip Therapy Vaseline TP Q2HR PRN Dry Lips Propofol 1,000 mg in 100 mls @ 4.23 mls/hr 10/10/20 12:00 10/17/20 00:36 Diprivan 10 Mg/Ml IV 0 mcg/kg/min TITR PEPITO 0 mls/hr Titration Protocol 5 MCG/KG/MIN Nitroglycerin/Dextrose 50 mg in 250 mls @ 3 mls/hr 10/10/20 13:00 10/10/20 13:17 Tridil Drip 50mg/250ml IV 0 mcg/min TITR PEPITO 0 mls/hr Titration Protocol 10 MCG/MIN Norepinephrine 8 mg/ Sodium 250 mls @ 3.75 mls/hr 10/10/20 14:00 10/10/20 22:15 Chloride IV 0 mcg/min TITRATE PEPITO 0 mls/hr Titration Protocol 2 MCG/MIN Cefepime HCl 2 gm in 100 mls @ 200 mls/hr 10/12/20 22:00 10/16/20 23:03 Cefepime/Ns 2 Gm/100 Ml IV 200 mls/hr Q24H PEPITO Administration Protocol Levetiracetam 500 mg/ Dextrose 105 mls @ 400 mls/hr 10/13/20 18:00 10/17/20 05:43 IV 400 mls/hr Q12H PEPITO Administration Amino Acids/Electrolytes/Dextrose 2,016 mls @ 84 mls/hr 10/16/20 20:00 10/16/20 23:01 Tpn Adult IV 10/17/20 19:59 84 mls/hr [email or web address] [facility] Administration Protocol Fentanyl Citrate 2,000 mcg in 100 mls @ 6.175 mls/hr 10/16/20 15:00 10/17/20 05:42 Fentanyl Drip Premix IV 1 mcg/kg/hr TITR PEPITO 6.175 mls/hr Administration Protocol 1 MCG/KG/HR Amino Acids/Electrolytes/Dextrose 2,016 mls @ 84 mls/hr 10/17/20 20:00 Tpn Adult IV 10/18/20 19:59 DAILY@[email or web address] [facility] Protocol Metoclopramide HCl 10 mg 10/10/20 21:51 Metoclopramide 10 Mg/2 Ml Inj IV Q6H PRN Nausea And Vomiting Metoprolol Tartrate 5 mg 10/11/20 12:00 10/17/20 12:30 Metoprolol Tartrate 5 Mg/5 Ml Inj IV 5 mg Q6HR [facility] Administration Multi-Ingred Cream/Lotion/Oil/Oint 1 applic 10/10/20 10:34 Mineral Oil/Petrolatum, White Ophth Oint 3.5 Gm OU Q4HR PRN Dry Eye(s) Ondansetron HCl 4 mg 10/10/20 21:51 Ondansetron 4 Mg/2 Ml Inj IV Q3H PRN Nausea And Vomiting Pantoprazole Sodium 40 mg 10/12/20 22:00 10/17/20 10:04 Pantoprazole 40 Mg Inj IV 40 mg BID PEPITO Administration Polyethylene Glycol 17 gm 10/17/20 10:00 10/17/20 10:05 Polyethylene Glycol 3350 17 Gm Powder PO 17 gm QDAY PEPITO Administration Scopolamine 1 each 10/17/20 10:00 10/17/20 10:05 Scopolamine Transdermal Patch 72 Hr TD 1 each Q3D PEPITO Administration Simple Syrup 15 ml 10/10/20 22:18 Simple Syrup 15 Ml FEEDTUBE PRN PRN Hypoglycemia Simple Syrup 30 ml 10/10/20 22:18 Simple Syrup 15 Ml FEEDTUBE PRN PRN Hypoglycemia Sodium Bicarbonate 325 mg 10/10/20 22:18 Sodium Bicarbonate 325 Mg Tab FEEDTUBE PRN PRN For Clogged Feeding Tube Sodium Chloride 10 ml 10/10/20 22:00 10/17/20 10:05 Sodium Chloride 0.9% 10 Ml Flush Syringe IV 10 ml BID PEPITO Administration Sodium Chloride 10 ml 10/10/20 21:51 Sodium Chloride 0.9% 10 Ml Flush Syringe IV PRN PRN LINE FLUSH
--- NOTE | 2020-10-17 13:32 | Progress Note ---
Assessment and Plan Assessment and plan: Sepsis -Presented with right-sided pneumonia, leukocytosis, febrile antibiotic therapy -Infectious disease consulted, appreciate recommendations Right-sided pneumonia -Noted on CXR -Possible aspiration from ACLS -Antibiotic therapy per infectious disease NSTEMI type II -Elevated troponins in setting of MOE -Cardiology consulted, appreciate recommendations Acute heart failure -2D echo -Cardiology consulted -Continue cardioprotective regimen GI bleed -Trend CBC -GI consulted, appreciate recommendations -GI has signed off and cleared for trial trickle tube feedings -CT abdomen without contrast pending -TPN for now Leukocytosis -Antibiotic therapy -Trend CBC Acute metabolic encephalopathy -Neurology consulted, appreciate recommendations -MRI brain pending Hypernatremia -Slight increase -Trend BMP Acute hypoxic respiratory failure -CCM consulted, appreciate recommendations -Wean mechanical ventilation as tolerated -VAP bundle Acute kidney injury -Avoid nephrotoxic medications -Strict intake and output -Nephrology consulted, patient recommendations -Trend BMP -Renal ultrasound shows no obstruction Transaminitis -Trend LFTs HTN -Resume home hypertensive regimen -Titrate as needed -Blood pressure monitoring per protocol Obesity -Dietary Changes when appropriate Elevated D-dimer -Anticoagulation per protocol -Bilateral Doppler ultrasound negative for DVT/SVT which shows bilateral popliteal cysts GI/DVT prophylaxis: SCDs to bilateral lower extremities while in bed, PPI, Hepar in subq Dispo: ICU The high probability of a clinically significant, sudden or life threatening de terioration of the [multi] system(s) required my full and direct attention, intervention and personal management. The aggregate critical care time was [35] minutes. This time is in addition to time spent performing reported procedures but includes the following: [x] Data Review and interpretation [x] Patient assessment and monitoring of vital signs [x] Documentation [x] Medication orders and management History Interval history: This is a 55-year-old male with hypertension, asthma, obesity in the emergency by presents the emergency department on 10/10 after receiving a Covid vaccine being found unresponsive in his car in the emergency room by with no pulse and ACLS protocol was initiated from his car to emergency room #21 where it was continued. Patient was intubated after ROSC was achieved and a central line was placed and the patient was initiated on pressors. In the emergency room patient seems to have seizure-like activity and then collapsed and was unresponsive with no palpable pulse and ACLS was again initiated patient with achievement of ROSC. Patient again coded with ACLS protocol in the CT room. Upon arrival to the ICU patient again coded and ROSC was achieved and he was placed on epinephrine, Lasix, heparin and sodium bicarbonate drip and sedated with propofol. An NG tube was placed, A-line was placed. Patient was admitted to the hospitalist service with consult to CCM, nephrology, infectious disease and cardiology. 10/11: Patient COVID-19 PCR is pending and he remains on mechanical ventilation, examination on assist control 400/30/12/0.95. Patient is scheduled for an echocardiogram and we will obtain bilateral lower extremity Doppler ultrasound given elevated D-dimer. Patient was supposed to have a CTA chest when he coded yesterday. We will begin trickle feeding. This morning patient was on a heparin drip and was noted to have bloody drainage from his NG tube. Heparin drip was discontinued. 10/12: Patient remains on propofol and Lasix drip at the time my examination and he is on assist control 400/25/12/0.60. Patient is hypokalemic this morning which was repleted. Nephrlogy discontinued Lasix drip and Diamox. Patient is hypertensive and has been started on hydralazine and beta-shital IV. He has been titrated off his vasopressors since yesterday. Vancomycin discontinued. Patient is currently on cefepime and azithromycin. 10/13: Sedation vacation attempted today and patient was not responsive to verbal or painful stimuli, does not track or focus or follow commands. This morning the patient has some respiratory alkalosis on ABG, hypernatremia and metabolic alkalosis on BMP. His kidney functions has improved slightly. Patient still has leukocytosis and infectious disease was like to continue antibiotic therapy. GI evaluated the patient yesterday and started the patient on PPI does not plan to scope at this time. At the time my examination patient assist-control 400/20/12/0.40 and sedated on propofol at 20. 4/2: GI has recommended a CT abdomen since there is increased output from OG tube and an MRI brain without contrast has been ordered per neurology recommendations. EEG is pending and the patient has been started on Keppra per neurology.. Nutrition has been consulted for initiation of parenteral nutrition. Patient remains sedated with propofol and his hypernatremia, leukocytosis, acute kidney injury and metabolic alkalosis is improving. Patient has hypokalemia today which was repleted. At the time of my examination patient was on assist control 400/14/10/0.40 and CCM has dropped his rate to 12 and PEEP to 8. We have labs ordered for a.m. He was given a clonidine patch given persistent hypertension and he remains on D5 water per nephrology. 10/15: This morning patient was started to have a low-grade fever and he will continue antibiotic therapy per infectious disease. He will remove Tuttle catheter today and place a condom cath. Patient's renal function is worsening with a BUN/creatinine of 57/2.4 today and he has hyperphosphatemia at 5.2. This morning the time my examination patient is sedated on fentanyl and has TPN infusing. He is on assist control 400/12/8/0.35. Per GI we will start trial of tube feedings initiation has been reconsulted for orders. Sepsis Right-sided pneumonia NSTEMI type II Acute heart failure GI bleed Leukocytosis Hypernatremia Acute hypoxic respiratory failure Acute kidney injury Transaminitis HTN Obesity Hospitalist Physical - Constitutional Vitals: Temp Pulse Resp BP Pulse Ox 100.0 F H 94 H 13 117/69 95 10/17/20 07:31 10/17/20 12:30 10/17/20 12:30 10/17/20 12:30 10/17/20 12:30 General appearance: Present: no acute distress, well-nourished, other (Sedated on the ventilator) - EENT Eyes: Present: PERRL ENT: poor dentition - Neck Neck: Absent: masses or JVD, cervical LAD - Respiratory Respiratory effort: normal Respiratory: bilateral: diminished - Cardiovascular Rhythm: regular Heart Sounds: Present: S1 & S2. Absent: systolic murmur, diastolic murmur - Extremities Extremities: no ischemia, pulses intact, pulses symmetrical, normal temperature, normal color Peripheral Pulses: within normal limits - Abdominal General gastrointestinal: soft, non-tender, non-distended, normal bowel sounds - Integumentary Integumentary: Present: warm, dry - Psychiatric Psychiatric: other (Sedated) - Neurologic Neurologic: other (Sedated) - Allied Health Allied health notes reviewed: nursing, RT, social work HEART Score - HEART Score EKG: Non-specific Age: 45-65 Troponin: Troponin T 0.125 ng/mL (0.00-0.029) H* D 10/12/20 04:00 Troponin: 1-3x normal limit - Critical Actions Critical Actions: 4-6 pts:12-16.6% risk of adverse cardiac event. Should be admitted Results - Labs CBC & Chem 7: 10/16/20 03:13 10/17/20 03:32 Labs: Laboratory Last Values WBC 11.1 K/mm3 (4.5-11.0) H 10/14/20 04:46 RBC 4.12 M/mm3 (3.65-5.03) 10/14/20 04:46 Hgb 12.5 gm/dl (11.8-15.2) 10/16/20 03:13 Hct 38.5 % (35.5-45.6) 10/16/20 03:13 MCV 91 fl (84-94) 10/14/20 04:46 MCH 30 pg (28-32) 10/14/20 04:46 MCHC 32 % (32-34) 10/14/20 04:46 RDW 15.3 % (13.2-15.2) H 10/14/20 04:46 Plt Count 161 K/mm3 (140-440) 10/16/20 03:13 Lymph % (Auto) 3.9 % (13.4-35.0) L 10/11/20 02:00 [place] % (Auto) 3.0 % (0.0-7.3) 10/11/20 02:00 Eos % (Auto) 0.0 % (0.0-4.3) 10/11/20 02:00 Baso % (Auto) 0.1 % (0.0-1.8) 10/11/20 02:00 Lymph # (Auto) 0.7 K/mm3 (1.2-5.4) L 10/11/20 02:00 [place] # (Auto) 0.5 K/mm3 (0.0-0.8) 10/11/20 02:00 Eos # (Auto) 0.0 K/mm3 (0.0-0.4) 10/11/20 02:00 Baso # (Auto) 0.0 K/mm3 (0.0-0.1) 10/11/20 02:00 Add Manual Diff Complete 10/10/20 18:18 Total Counted 100 10/10/20 18:18 Seg Neutrophils % 93.0 % (40.0-70.0) H 10/11/20 02:00 Seg Neuts % (Manual) 60.0 % (40.0-70.0) 10/10/20 18:18 Band Neutrophils % 27.0 % 10/10/20 18:18 Lymphocytes % (Manual) 4.0 % (13.4-35.0) L 10/10/20 18:18 Monocytes % (Manual) 9.0 % (0.0-7.3) H 10/10/20 18:18 Eosinophils % (Manual) 4.0 % (0.0-4.3) 10/10/20 10:48 Metamyelocytes % 1.0 % 10/10/20 10:48 Nucleated RBC % Not Reportable 10/10/20 18:18 Seg Neutrophils # 16.1 K/mm3 (1.8-7.7) H 10/11/20 02:00 Seg Neutrophils # Man 13.8 K/mm3 (1.8-7.7) H 10/10/20 18:18 Band Neutrophils # 6.2 K/mm3 10/10/20 18:18 Lymphocytes # (Manual) 0.9 K/mm3 (1.2-5.4) L 10/10/20 18:18 Abs React Lymphs (Man) 0.0 K/mm3 10/10/20 18:18 Monocytes # (Manual) 2.1 K/mm3 (0.0-0.8) H 10/10/20 18:18 Eosinophils # (Manual) 0.0 K/mm3 (0.0-0.4) 10/10/20 18:18 Basophils # (Manual) 0.0 K/mm3 (0.0-0.1) 10/10/20 18:18 Metamyelocytes # 0.0 K/mm3 10/10/20 18:18 Myelocytes # 0.0 K/mm3 10/10/20 18:18 Promyelocytes # 0.0 K/mm3 10/10/20 18:18 Blast Cells # 0.0 K/mm3 10/10/20 18:18 WBC Morphology Not Reportable 10/10/20 18:18 Hypersegmented Neuts Not Reportable 10/10/20 18:18 Hyposegmented Neuts Not Reportable 10/10/20 18:18 Hypogranular Neuts Not Reportable 10/10/20 18:18 Smudge Cells Not Reportable 10/10/20 18:18 Toxic Granulation Not Reportable 10/10/20 18:18 Toxic Vacuolation Not Reportable 10/10/20 18:18 Dohle Bodies Not Reportable 10/10/20 18:18 Pelger-Huet Anomaly Not Reportable 10/10/20 18:18 Dionicio Rods Not Reportable 10/10/20 18:18 Platelet Estimate Consistent w auto 10/10/20 18:18 Clumped Platelets Not Reportable 10/10/20 18:18 Plt Clumps, EDTA Not Reportable 10/10/20 18:18 Large Platelets Rare 10/10/20 18:18 Giant Platelets Rare 10/10/20 18:18 Platelet Satelliting Not Reportable 10/10/20 18:18 Plt Morphology Comment Not Reportable 10/10/20 18:18 RBC Morphology Not Reportable 10/10/20 18:18 Dimorphic RBCs Not Reportable 10/10/20 18:18 Polychromasia Not Reportable 10/10/20 18:18 Hypochromasia Not Reportable 10/10/20 18:18 Poikilocytosis Not Reportable 10/10/20 18:18 Anisocytosis Not Reportable 10/10/20 18:18 Microcytosis Not Reportable 10/10/20 18:18 Macrocytosis Not Reportable 10/10/20 18:18 Spherocytes Not Reportable 10/10/20 18:18 Pappenheimer Bodies Not Reportable 10/10/20 18:18 Sickle Cells Not Reportable 10/10/20 18:18 Target Cells Not Reportable 10/10/20 18:18 Tear Drop Cells Not Reportable 10/10/20 18:18 Ovalocytes Not Reportable 10/10/20 18:18 Helmet Cells Not Reportable 10/10/20 18:18 Medley-Daniel Bodies Not Reportable 10/10/20 18:18 [place] Rings Not Reportable 10/10/20 18:18 [place] Cells Not Reportable 10/10/20 18:18 Bite Cells Not Reportable 10/10/20 18:18 Crenated Cell Not Reportable 10/10/20 18:18 Elliptocytes Not Reportable 10/10/20 18:18 Acanthocytes (Spur) Not Reportable 10/10/20 18:18 Rouleaux Not Reportable 10/10/20 18:18 Hemoglobin C Crystals Not Reportable 10/10/20 18:18 Schistocytes Not Reportable 10/10/20 18:18 Malaria parasites Not Reportable 10/10/20 18:18 Mauricio Bodies Not Reportable 10/10/20 18:18 Hem Pathologist Commnt No 10/10/20 18:18 PT 13.8 Sec. (12.2-14.9) 10/10/20 18:18 INR 1.07 (0.87-1.13) 10/10/20 18:18 APTT 26.9 Sec. (24.2-36.6) 10/10/20 18:18 D-Dimer 679.5 ng/mlDDU (0-234) H 10/10/20 10:48 Heparin Anti-Xa Level 0.22 U.I./ml (0.3-0.7) L 10/11/20 08:35 ABG pH 7.419 pH Units (7.350-7.450) 10/16/20 05:10 POC ABG pCO2 59.6 mmHg (32.0-48.0) H 10/14/20 03:45 ABG pCO2 55.5 mm Hg 10/16/20 05:10 POC ABG pO2 93.3 mmHg (83-108) 10/14/20 03:45 ABG pO2 104.5 mm Hg (80.0-90.0) H 10/16/20 05:10 POC ABG HCO3 40.3 10/14/20 03:45 ABG HCO3 35.1 mmol/L (20.0-26.0) H 10/16/20 05:10 ABG O2 Saturation 97.7 % (95.0-99.0) 10/16/20 05:10 ABG O2 Content 10.8 (0.0-44) 10/16/20 05:10 POC ABG Base Excess 13.8 10/14/20 03:45 ABG Base Excess 9.5 mmol/L (-2.0-3.0) H 10/16/20 05:10 ABG Hemoglobin 7.9 gm/dl (14.0-18.0) L 10/16/20 05:10 ABG Oxyhemoglobin 95.8 (94-98) 10/14/20 03:45 ABG Carboxyhemoglobin 1.9 % (0.0-5.0) 10/16/20 05:10 ABG Methemoglobin 0.5 % (0.0-1.5) 10/16/20 05:10 ABG Sodium 151.4 mmol/L (136.0-145.0) H 10/14/20 03:45 ABG Potassium 3.3 mmol/L (3.40-4.50) L 10/14/20 03:45 ABG Chloride 105.0 mmol/L (98-107) 10/14/20 03:45 ABG Glucose 138 mg/dL (65-95) H 10/14/20 03:45 VBG pH 6.870 (7.320-7.420) L* 10/10/20 10:48 Oxyhemoglobin 95.3 % (95.0-99.0) 10/16/20 05:10 Carboxyhemoglobin 1.6 (0.5-1.5) H 10/14/20 03:45 FiO2 35 % 10/16/20 05:10 FiO2 % 40 10/14/20 03:45 Sodium 146 mmol/L (137-145) H 10/17/20 03:32 Potassium 3.9 mmol/L (3.6-5.0) 10/17/20 03:32 Chloride 101.2 mmol/L (98-107) 10/17/20 03:32 Carbon Dioxide 32 mmol/L (22-30) H 10/17/20 03:32 Anion Gap 17 mmol/L 10/17/20 03:32 BUN 57 mg/dL (9-20) H 10/17/20 03:32 Creatinine 2.4 mg/dL (0.8-1.3) H D 10/17/20 03:32 Estimated GFR 34 ml/min 10/17/20 03:32 BUN/Creatinine Ratio 24 % 10/17/20 03:32 Glucose 124 mg/dL (75-100) H 10/17/20 03:32 POC Glucose 122 mg/dL (70-105) H 10/17/20 05:10 Hemoglobin A1c 6.0 % (4-6) 10/11/20 02:00 Lactic Acid 1.10 mmol/L (0.7-2.0) 10/13/20 04:52 Calcium 8.8 mg/dL (8.4-10.2) 10/17/20 03:32 Phosphorus 5.20 mg/dL (2.5-4.5) H D 10/17/20 03:32 Magnesium 2.30 mg/dL (1.7-2.3) 10/17/20 03:32 Ferritin 81.4 ng/mL (30.0-300.0) 10/10/20 10:48 Total Bilirubin 0.60 mg/dL (0.1-1.2) 10/11/20 02:00 AST 80 units/L (5-40) H 10/11/20 02:00 ALT 59 units/L (7-56) H 10/11/20 02:00 Alkaline Phosphatase 52 units/L (35-129) 10/11/20 02:00 Ammonia 214.0 umol/L (25-60) H 10/10/20 10:46 Lactate Dehydrogenase 386 units/L (91-180) H 10/10/20 10:48 Total Creatine Kinase 1192 units/L (55-170) H 10/10/20 18:18 CK-MB (CK-2) 21.7 ng/mL (0.0-4.0) H 10/10/20 18:18 CK-MB (CK-2) Rel Index 1.8 (0-4) 10/10/20 18:18 Troponin T 0.125 ng/mL (0.00-0.029) H* D 10/12/20 04:00 C-Reactive Protein 0.90 mg/dL (0.00-1.30) 10/10/20 10:48 NT-Pro-B Natriuret Pep 1187 pg/mL (0-900) H 10/10/20 10:46 Total Protein 6.8 g/dL (6.3-8.2) 10/11/20 02:00 Albumin 3.6 g/dL (3.9-5) L 10/11/20 02:00 Albumin/Globulin Ratio 1.1 % 10/11/20 02:00 Triglycerides 278 mg/dL (2-149) H 10/13/20 04:52 Cholesterol 138 mg/dL (50-199) 10/10/20 18:18 LDL Cholesterol Direct 76 mg/dL (50-130) 10/10/20 18:18 HDL Cholesterol 49 mg/dL (40-59) 10/10/20 18:18 Cholesterol/HDL Ratio 2.81 % 10/10/20 18:18 Procalcitonin 4.98 ng/mL (<0.15) 10/15/20 04:12 TSH 6.260 mlU/mL (0.270-4.200) H 10/10/20 10:46 Arterial Blood Glucose 138 mg/dL (65-95) H 10/14/20 03:45 Arterial Blood Ionized Calcium 4.5 mg/dL (4.6-5.3) L 10/14/20 03:45 Urine Color Yellow (Yellow) 10/11/20 13:30 Urine Turbidity Slightly-cloudy (Clear) 10/11/20 13:30 Urine pH 9.0 (5.0-7.0) H 10/11/20 13:30 Ur Specific [place] 1.012 (1.003-1.030) 10/11/20 13:30 Urine Protein 30 mg/dl mg/dL (Negative) 10/11/20 13:30 Urine Glucose (UA) Neg mg/dL (Negative) 10/11/20 13:30 Urine Ketones Neg mg/dL (Negative) 10/11/20 13:30 Urine Blood Mod (Negative) 10/11/20 13:30 Urine Nitrite Neg (Negative) 10/11/20 13:30 Urine Bilirubin Neg (Negative) 10/11/20 13:30 Urine Urobilinogen < 2.0 mg/dL (<2.0) 10/11/20 13:30 Ur Leukocyte Esterase Tr (Negative) 10/11/20 13:30 Urine WBC (Auto) 18.0 /HPF (0.0-6.0) H 10/11/20 13:30 Urine RBC (Auto) 150.0 /HPF (0.0-6.0) 10/11/20 13:30 U Epithel Cells (Auto) < 1.0 /HPF (0-13.0) 10/11/20 13:30 Urine Mucus Few /HPF 10/11/20 13:30 Urine Eosinophils None seen (None Seen) 10/11/20 13:30 Urine Creatinine 80.5 mg/dL (0.1-20.0) H 10/11/20 13:30 Urine Sodium 110 mmol/L 10/11/20 13:30 Random Vancomycin 10.1 ug/mL (0-40.0) 10/12/20 05:00 Urine Opiates Screen Negative 10/10/20 10:50 Urine Methadone Screen Negative 10/10/20 10:50 Ur Barbiturates Screen Negative 10/10/20 10:50 Ur Phencyclidine Scrn Negative 10/10/20 10:50 Ur Amphetamines Screen Negative 10/10/20 10:50 U Benzodiazepines Scrn Negative 10/10/20 10:50 Urine Cocaine Screen Negative 10/10/20 10:50 U Marijuana (THC) Screen Positive 10/10/20 10:50 Drugs of Abuse Note Disclamer 10/10/20 10:50 Plasma/Serum Alcohol < 0.01 % (0-0.07) 10/10/20 10:48 Coronavirus (PCR) Negative (Negative) 10/11/20 Unknown Blood Type AB POSITIVE 10/10/20 10:48 Antibody Screen Negative 10/10/20 10:48 Tuttle/IV: Voiding Method Indwelling Catheter Active Medications - Current Medications Current Medications: Generic Name Dose Route Start Last Admin Trade Name Freq PRN Reason Stop Dose Admin Acetaminophen 650 mg 10/10/20 21:51 10/17/20 08:43 Acetaminophen 325 Mg Tab PO 650 mg Q4H PRN Administration Pain MILD(1-3)/Fever >100.5/SALVADOR Acetaminophen 650 mg 10/11/20 11:24 10/11/20 12:05 Acetaminophen 650 Mg Rect Supp NM 650 mg Q6H PRN Administration Fever >101 Albuterol 2.5 mg 10/11/20 13:12 Albuterol 2.5 Mg/3 Ml Nebu IH Q6HRT PRN Shortness Of Breath Lipase/Protease/Amylase 1 each 10/10/20 22:18 Lipase 10,500/Protease 25,000/Amylase 43,750 (Units) Dr Santana FEEDTUBE PRN PRN For Clogged Feeding Tube Chlorothiazide Sodium 500 mg 10/14/20 10:00 10/17/20 12:30 Chlorothiazide 500 Mg Vial IV 500 mg QDAY PEPITO Administration Clonidine HCl 0.3 mg 10/14/20 15:00 10/14/20 16:00 Clonidine Tts 0.3 Mg/24 Hr Patch TD 0.3 mg Fr PEPITO Administration Docusate Sodium 100 mg 10/16/20 22:00 10/17/20 10:04 Docusate Sodium 100 Mg/10 Ml Oral Liqd PO 100 mg BID PEPITO Administration Fentanyl 50 mcg 10/16/20 14:10 Fentanyl 100 Mcg/2 Ml Inj IV Q10MIN PRN ANALGESIA Glycopyrrolate 0.2 mg 10/16/20 15:00 10/17/20 08:42 Glycopyrrolate 0.4 Mg/2 Ml Inj IV 10/19/20 14:59 0.2 mg Q8H PEPITO Administration Heparin Sodium (Porcine) 5,000 unit 10/11/20 22:00 10/17/20 10:04 Heparin 5,000 Unit/1 Ml Vial SUB-Q 5,000 unit Q12HR PEPITO Administration Hydralazine HCl 5 mg 10/15/20 20:25 10/16/20 14:46 Hydralazine 20 Mg/1 Ml Inj IV 5 mg Q6H PRN Administration Hypertension Hydromorphone HCl 0.5 mg 10/10/20 21:51 10/15/20 14:45 Hydromorphone 1 Mg/1 Ml Inj IV 0.5 mg Q3H PRN Administration Pain , Severe (7-10) Hydrophilic Ointment 1 applic 10/10/20 10:34 Lip Therapy Vaseline TP Q2HR PRN Dry Lips Propofol 1,000 mg in 100 mls @ 4.23 mls/hr 10/10/20 12:00 10/17/20 00:36 Diprivan 10 Mg/Ml IV 0 mcg/kg/min TITR PEPITO 0 mls/hr Titration Protocol 5 MCG/KG/MIN Nitroglycerin/Dextrose 50 mg in 250 mls @ 3 mls/hr 10/10/20 13:00 10/10/20 13:17 Tridil Drip 50mg/250ml IV 0 mcg/min TITR PEPITO 0 mls/hr Titration Protocol 10 MCG/MIN Norepinephrine 8 mg/ Sodium 250 mls @ 3.75 mls/hr 10/10/20 14:00 10/10/20 22:15 Chloride IV 0 mcg/min TITRATE PEPITO 0 mls/hr Titration Protocol 2 MCG/MIN Cefepime HCl 2 gm in 100 mls @ 200 mls/hr 10/12/20 22:00 10/16/20 23:03 Cefepime/Ns 2 Gm/100 Ml IV 200 mls/hr Q24H PEPITO Administration Protocol Levetiracetam 500 mg/ Dextrose 105 mls @ 400 mls/hr 10/13/20 18:00 10/17/20 05:43 IV 400 mls/hr Q12H PEPITO Administration Amino Acids/Electrolytes/Dextrose 2,016 mls @ 84 mls/hr 10/16/20 20:00 10/16/20 23:01 Tpn Adult IV 10/17/20 19:59 84 mls/hr DAILY@[email or web address] [facility] Administration Protocol Fentanyl Citrate 2,000 mcg in 100 mls @ 6.175 mls/hr 10/16/20 15:00 10/17/20 05:42 Fentanyl Drip Premix IV 1 mcg/kg/hr TITR PEPITO 6.175 mls/hr Administration Protocol 1 MCG/KG/HR Amino Acids/Electrolytes/Dextrose 2,016 mls @ 84 mls/hr 10/17/20 20:00 Tpn Adult IV 10/18/20 19:59 DAILY@1999 [facility] Protocol Metoclopramide HCl 10 mg 10/10/20 21:51 Metoclopramide 10 Mg/2 Ml Inj IV Q6H PRN Nausea And Vomiting Metoprolol Tartrate 5 mg 10/11/20 12:00 10/17/20 12:30 Metoprolol Tartrate 5 Mg/5 Ml Inj IV 5 mg Q6HR PEPITO Administration Multi-Ingred Cream/Lotion/Oil/Oint 1 applic 10/10/20 10:34 Mineral Oil/Petrolatum, White Ophth Oint 3.5 Gm OU Q4HR PRN Dry Eye(s) Ondansetron HCl 4 mg 10/10/20 21:51 Ondansetron 4 Mg/2 Ml Inj IV Q3H PRN Nausea And Vomiting Pantoprazole Sodium 40 mg 10/12/20 22:00 10/17/20 10:04 Pantoprazole 40 Mg Inj IV 40 mg BID PEPITO Administration Polyethylene Glycol 17 gm 10/17/20 10:00 10/17/20 10:05 Polyethylene Glycol 3350 17 Gm Powder PO 17 gm QDAY PEPITO Administration Scopolamine 1 each 10/17/20 10:00 10/17/20 10:05 Scopolamine Transdermal Patch 72 Hr TD 1 each Q3D PEPITO Administration Simple Syrup 15 ml 10/10/20 22:18 Simple Syrup 15 Ml FEEDTUBE PRN PRN Hypoglycemia Simple Syrup 30 ml 10/10/20 22:18 Simple Syrup 15 Ml FEEDTUBE PRN PRN Hypoglycemia Sodium Bicarbonate 325 mg 10/10/20 22:18 Sodium Bicarbonate 325 Mg Tab FEEDTUBE PRN PRN For Clogged Feeding Tube Sodium Chloride 10 ml 10/10/20 22:00 10/17/20 10:05 Sodium Chloride 0.9% 10 Ml Flush Syringe IV 10 ml BID PEPITO Administration Sodium Chloride 10 ml 10/10/20 21:51 Sodium Chloride 0.9% 10 Ml Flush Syringe IV PRN PRN LINE FLUSH Nutrition/Malnutrition Assess - Dietary Evaluation Nutrition/Malnutrition Findings: Nutrition Notes Start: 10/11/20 08:38 Freq: Status: Active Protocol: Document 10/17/20 11:24 CW (Rec: 10/17/20 11:39 CW [id number]) Nutrition Notes Initial or Follow up Reassessment Current Diagnosis Acute Kidney Injury,Sepsis, Hypertension,Heart Failure, Respiratory Failure Other Pertinent Diagnosis GIB, pneu, Covid 19, PR, pulmonary edema Current Diet CPN at 84 ml/hr Labs/Tests K 3.9 BUN 57 Cr 2.4 Mg 2.3 phos 5.2 CO2 32 Pertinent Medications Miralax Colace Height 6 ft Weight 122.8 kg [place] Body Weight (kg) 80.90 BMI 36.7 Weight change and time frame 7.5% weight loss x 6 days Subjective/Other Information Day 3 PPN. Pt tolerating well. PICC line being placed at 11A . PPN to change to CPN waqas high osmolarity in order to better meet kcal needs. Percent of energy/protein needs met: 46%/56% Burn Absent Trauma Absent Current % PO Negligible Minimum of two criteria No physical signs of malnutrition #2 Nutrition Diagnosis Inadequate energy intake Diagnosis Progress(for reassessment Continues documentation) #1 Nutrition Diagnosis Inadequate oral intake Diagnosis Progress(for reassessment Continues documentation) Is patient on ventilator? Yes Is Patient Ambulatory and/or Out of Bed No REE-([place]-confined to bed) 2536.812 Kcal/Kg value to use for calculation 14 Approximate Energy Requirements Using 1719 kcal/Kg Calculation Used for Recommendations Kcal/kg Additional Notes protein needs: >162g (>2 kgIBW ) fluid needs: 1 ml/kcal or per MD Nutrition Intervention Change Diet Order: Change to CPN Nutrition Support: CPN at 84 ml/hr Dextrose 8.7% Amino acids 5% Na 0 MEq, Ca 8 Meq K 80 mEq, Mg 0 mEq, phos 0 mEq Cl/CO2 100%/0% Osmolality 1017 Kcal 995 Protein (gm) 100 Carbohydrates (gm) 175 Fat (gm) 0 Fluid (mL) 2,016 Goal #1 Restart TF regimen when medically feasible Goal #2 Meet needs as best as possible via CPN Anticipated Discharge Needs: unable to determine at this time Follow-Up By: 10/18/20 Additional Comments Labs in AM: CMP, Mg, Phos
--- NOTE | 2020-10-17 14:38 | Progress Note ---
Assessment and Plan Pt remains intubated, not sedated, unresponsive. Continue volume optimization and electrolyte correction per Nephro. May consider IV Cardene gtt if needed for BP optimization when weaning off sedation. Otherwise will optimize antihypertensive regimen when tolerating tube feeds/PO meds. Continue supportive measures. Overall guarded prognosis. The patient has been seen in conjunction with Dr. Liz Steen who agrees with the assessment and plan of care. - Patient Problems (1) AMS (altered mental status) Current Visit: Yes Status: Acute (2) Cardiopulmonary arrest with successful resuscitation Current Visit: Yes Status: Acute (3) Acute respiratory failure Current Visit: Yes Status: Acute Qualifiers: Respiratory failure complication: hypoxia and hypercapnia Qualified Code(s): J96.01 - Acute respiratory failure with hypoxia; J96.02 - Acute respiratory failure with hypercapnia (4) Bilateral pneumonia Current Visit: Yes Status: Acute (5) Sepsis with hypotension Current Visit: Yes Status: Acute (6) Person under investigation for COVID-19 Current Visit: Yes Status: Ruled-out (7) Seizure Current Visit: Yes Status: Suspected (8) NSTEMI (non-ST elevated myocardial infarction) Current Visit: Yes Status: Acute (9) MOE (acute kidney injury) Current Visit: Yes Status: Acute (10) GI bleed Current Visit: Yes Status: Acute (11) Acute heart failure with preserved ejection fraction (HFpEF) Current Visit: Yes Status: Acute (12) Hypernatremia Current Visit: Yes Status: Acute Subjective Date of service: 10/17/20 Principal diagnosis: Cardiac arrest; Septic Shock; Ac. hypoxemic & hypercapnic resp failure; MOE Interval history: pt remains intubated, unresponsive, not sedated. tele reviewed - in SR HR 90s. Objective Last Vital Signs Temp 100.0 F H 10/17/20 07:31 Pulse 94 H 10/17/20 12:30 Resp 13 10/17/20 12:30 BP 117/69 10/17/20 12:30 Pulse Ox 95 10/17/20 12:30 - Physical Examination General: Other (intubated) HEENT: Positive: Normocephaly Neck: Positive: neck supple, trachea midline Cardiac: Positive: Reg Rate and Rhythm, S1/S2 Lungs: Positive: Decreased Breath Sounds, Oxygen, Ventilated Respirations Neuro: Positive: Other (intubated) Abdomen: Positive: Soft Skin: Negative: Rash Extremities: Present: lower extr. pulses. Absent: edema - Labs and Meds Comprehensive Metabolic Panel 10/17/20 Range/Units 03:32 Sodium 146 H (137-145) mmol/L Potassium 3.9 (3.6-5.0) mmol/L Chloride 101.2 (98-107) mmol/L Carbon Dioxide 32 H (22-30) mmol/L BUN 57 H (9-20) mg/dL Creatinine 2.4 H D (0.8-1.3) mg/dL Glucose 124 H (75-100) mg/dL Calcium 8.8 (8.4-10.2) mg/dL - Imaging and Cardiology EKG: report reviewed, image reviewed Echo: report reviewed (10/10/2020 - mod LVH, EF 55-60%, mild diastolic dysfunction) - Telemetry EKG Rhythm: Sinus Rhythm - EKG Sinus rhythms and dysrhythmias: sinus rhythm Repolarization changes or abnormalities: ST suggestive of injury, Q-T interval prolongation - Allied health notes Allied health notes reviewed: nursing
[2020-10-17] MEDS: ACETAMINOPHEN 650 MG RECT SUPP PR PRN (17:16)
[2020-10-17] MEDS ORDERED: TOTAL PARENTERAL NUTRITION 2,016 ML IV SCH (20:00)
[2020-10-17] MEDS: CEFEPIME/NS 2 GM/100 ML 2 GM/100 ML BAG IV SCH (21:46)
[2020-10-18 03:33] LABS: Hematocrit 35.6 % (35.5-45.6); Hemoglobin 11.7 gm/dl (11.8-15.2)
[2020-10-18 04:00] LABS: Albumin 3.1 g/dL (3.9-5); Calcium 8.7 mg/dL (8.4-10.2)
[2020-10-18] MEDS: METOPROLOL TARTRATE 5 MG/5 ML INJ IV SCH ×5 (05:51→23:37)
[2020-10-18] MEDS: levETIRAcetam 500 MG in DEXTROSE 5% IN WATER 100 ML IV SCH ×2 (05:51→18:10)
[2020-10-18] MEDS: GLYCOPYRROLATE 0.4 MG/2 ML INJ IV SCH ×3 (06:00→22:00)
--- NOTE | 2020-10-18 09:33 | Progress Note ---
Assessment and Plan Cultures: SARS CoV2 PCR: negative. 10/10/2020 blood culture: No growth 10/10/2020 ET aspirate culture: Usual respiratory antonio 10/11/2020 urine culture: no growth A/P: 55-year-old male with hypertension, asthma, obesity came into the emergency room after receiving the Covid vaccine and passing out in the car at the emergency room bay. Patient was found to be unresponsive with no pulse, ACLS was initiated: #Sepsis, likely secondary to pneumonia. COVID negative. Noted high fever ove rnight and right nostril copious purulunce. ?sinusitis #Right-sided pneumonia: Possible aspiration during ACLS. Procalcitonin low. Chest x-ray with persistent lung opacities. #Acute hypoxic respiratory failure: On mechanical ventilation. #MOE: Renally dose antibiotics. Worsening. Renal on board. #Elevated LFTs: Likely from sepsis #Urine tox screen positive for THC #Possible sinusitis from endotracheal intubation and mechanical ventilation: Initial CT head did not reveal any evidence of sinusitis. Patient is already on antibiotics. #Acute encephalopathy: neurology on board, evaluation in process. #UTI: Urine culture no growth. Recs: -Repeat blood cultures, urinalysis, respiratory cultures, right nostril culture in light of high fever 101.6 -Monitor fever -Continue cefepime D7 of 10-extended due to high fever -Start vancomycin with PK consult -Check MRSA PCR will follow Kylah Carson MD [facility] ([facility]) Office [phone] Subjective Date of service: 10/18/20 Principal diagnosis: Cardiac arrest; Septic Shock; Ac. hypoxemic & hypercapnic resp failure; MOE Interval history: Patient remains intubated, FiO2 35, PEEP of 8, noted temperature 101.6 overnight. Remains sedated on fentanyl Objective - Exam Narrative Exam: General appearance: Sedated intubated Eyes: anicteric sclerae, moist conjunctivae; no lid-lag; PERRLA HENT: Normocephalic, Atraumatic; normal external ears, nares open with right nostril thick purulence, oropharynx endotracheal tube in place Neck: supple, tracheal midline, no JVD Lungs: Clear to auscultation bilaterally CV: RRR no murmur Abdomen: Soft, nontender Extremities: no edema, no cyanosis Skin: No rash. Psych: Sedated Neuro: Sedated - Constitutional Vitals: Vital Signs Temp Pulse Resp BP Pulse Ox 99.8 F H 89 14 151/76 94 10/18/20 08:00 10/18/20 08:15 10/18/20 08:15 10/18/20 08:15 10/18/20 08:15 Temperature -Last 24 Hours Temperature 99.8 F Temperature 99.5 F Temperature 98.5 F Temperature 100.7 F Temperature 101.6 F Temperature 100.3 F - Labs CBC & Chem 7: 10/18/20 03:27 10/18/20 03:27 Labs: Abnormal lab results 10/17/20 10/18/20 10/18/20 Range/Units 17:33 00:13 00:16 Hgb (11.8-15.2) gm/dl Chloride (98-107) mmol/L BUN (9-20) mg/dL Creatinine (0.8-1.3) mg/dL Glucose (75-100) mg/dL POC Glucose 121 H 23 L 134 H (70-105) mg/dL Total Bilirubin (0.1-1.2) mg/dL Albumin (3.9-5) g/dL 10/18/20 10/18/20 10/18/20 Range/Units 03:27 03:27 05:09 Hgb 11.7 L (11.8-15.2) gm/dl Chloride 97.6 L (98-107) mmol/L BUN 90 H (9-20) mg/dL Creatinine 3.3 H (0.8-1.3) mg/dL Glucose 146 H (75-100) mg/dL POC Glucose 144 H (70-105) mg/dL Total Bilirubin 1.70 H (0.1-1.2) mg/dL Albumin 3.1 L (3.9-5) g/dL
[2020-10-18] MEDS: DOCUSATE SODIUM 100 MG/10 ML ORAL LIQD PO SCH ×2 (09:59→22:00)
[2020-10-18] MEDS: PANTOPRAZOLE 40 MG INJ IV SCH ×2 (09:59→22:00)
[2020-10-18] MEDS: POLYETHYLENE GLYCOL 3350 17 GM POWDER PO SCH (09:59)
[2020-10-18] MEDS: HEPARIN 5,000 UNIT/1 ML VIAL SUB-Q SCH ×2 (10:00→22:16)
[2020-10-18] MEDS ORDERED: VANCOMYCIN PHARMACY TO DOSE IV SCH (11:00)
[2020-10-18 11:09] LABS: Bilirubin,Urine NEG (Negative); Blood,Urine LG (Negative); Color,Urine Amber (Yellow)
--- NOTE | 2020-10-18 11:19 | Progress Note ---
Assessment and Plan he pt is a 55-year-old -[place] male with a past medical history of hypertension, asthma, obesity. He is intubated and sedated on evaluation and thus HPI is obtained per the chart. Pt presented to ED after Covid vaccine and passed out with seizure like activity in the car at the emergency room bay. Patient was found to be unresponsive and with no pulse. ACLS protocol was initiated from the car to the emergency room with continued ACLS protocol. Patient was intubated and after couple of epi ROSC obtained. Central line was p laced and patient was also started on pressors. Patient did not have any fever shortness of breath or cough or any symptoms prior to the COVID-19 vaccination. Patient coded twice in the emergency room. One before the imaging studies and once after the imaging studies. tte reviewed - EF 55-60%, mod LVH, mild diastolic dysfunction. Pt is intubated, unresponsive. No sedation. Tele reviewed: SR 88. Frequent PVCs, PJCs. Continue volume optimization and electrolyte correction per Nephro. May consider IV Cardene gtt if needed for BP optimization. Will optimize antihypertensive regimen when tolerating tube feeds/PO meds. Continue supportive measures. Overall guarded prognosis. Will follow. The patient has been seen in conjunction with Dr. Liz Steen who agrees with the assessment and plan of care. - Patient Problems (1) Cardiopulmonary arrest with successful resuscitation Current Visit: Yes Status: Acute (2) Acute respiratory failure Current Visit: Yes Status: Acute Qualifiers: Respiratory failure complication: hypoxia and hypercapnia Qualified Code(s): J96.01 - Acute respiratory failure with hypoxia; J96.02 - Acute respiratory failure with hypercapnia (3) Bilateral pneumonia Current Visit: Yes Status: Acute (4) Sepsis with hypotension Current Visit: Yes Status: Acute (5) NSTEMI (non-ST elevated myocardial infarction) Current Visit: Yes Status: Acute (6) Acute heart failure Current Visit: Yes Status: Suspected (7) MOE (acute kidney injury) Current Visit: Yes Status: Acute (8) GI bleed Current Visit: Yes Status: Suspected Subjective Date of service: 10/18/20 Principal diagnosis: Cardiac arrest; Septic Shock; Ac. hypoxemic & hypercapnic resp failure; MOE Interval history: Pt is intubated and sedated. Tele reviewed: SR 88. Frequent PVCs, PJCs. Objective Last Vital Signs Temp 99.8 F H 04/06/21 08:00 Pulse 89 10/18/20 11:03 Resp 14 10/18/20 08:15 BP 179/86 10/18/20 11:03 Pulse Ox 96 10/18/20 11:03 - Physical Examination General: Other (intubated) HEENT: Positive: Normocephaly Neck: Positive: neck supple, trachea midline Cardiac: Positive: Reg Rate and Rhythm, S1/S2 Lungs: Positive: clear to auscultation, Ventilated Respirations Neuro: Positive: Other (intubated) Abdomen: Positive: Soft Skin: Negative: Rash Extremities: Present: lower extr. pulses. Absent: edema - Labs and Meds Cardiac Enzymes 10/18/20 Range/Units 03:27 AST 37 (5-40) units/L CBC 10/18/20 Range/Units 03:27 Hgb 11.7 L (11.8-15.2) gm/dl Hct 35.6 (35.5-45.6) % Plt Count 225 (140-440) K/mm3 Comprehensive Metabolic Panel 10/18/20 Range/Units 03:27 Sodium 141 (137-145) mmol/L Potassium 4.0 (3.6-5.0) mmol/L Chloride 97.6 L (98-107) mmol/L Carbon Dioxide 30 (22-30) mmol/L BUN 90 H (9-20) mg/dL Creatinine 3.3 H (0.8-1.3) mg/dL Glucose 146 H (75-100) mg/dL Calcium 8.7 (8.4-10.2) mg/dL AST 37 (5-40) units/L ALT 32 (7-56) units/L Alkaline Phosphatase 97 (35-129) units/L Total Protein 6.3 (6.3-8.2) g/dL Albumin 3.1 L (3.9-5) g/dL - Imaging and Cardiology EKG: report reviewed, image reviewed Echo: report reviewed (10/10/2020 - mod LVH, EF 55-60%, mild diastolic dysfunct ion) - Telemetry EKG Rhythm: Sinus Rhythm - EKG Sinus rhythms and dysrhythmias: sinus rhythm Repolarization changes or abnormalities: ST suggestive of injury, Q-T interval prolongation - Allied health notes Allied health notes reviewed: nursing
[2020-10-18] MEDS ORDERED: VANCOMYCIN 2,000 MG in SODIUM CHLORIDE 0.9% 500 ML 500 ML IV ONE (11:30)
--- NOTE | 2020-10-18 11:36 | Progress Note ---
Assessment and Plan Cardiac arrest x3 with ROSC Severe septic and cardiogenic shock Acute respiratory failure with hypoxemia and hypercarbia Acute pulmonary edema MOE (acute kidney injury) Lactic acidosis, severe metabolic acidosis Bilateral pneumonia, aspiration pneumonia Elevated troponins - discontinue parenteral nutrition - to go for MRI - begin SBT's today - reduce peep to 6 - ABG after first 2 hours on PSV - get Urine lytes re: ? prerenal - flonase spray for sinus congestion / exudation - continue Reglan for GI motility - continue Robinul & scopolamine for secretions - reduce free water supplementation (hypernatremia resolved) - continue care as below otherwise; - follow MRI brain - continue set rate on MVS at 12/min - continue to hold on full anticoagulation re: negative Dopplers and clinical improvement in oxygenation - continue Clonidine 0.3 mg weekly patch - follow G.I. evaluation - de-escalate empiric anti-infective's per ID rec's (on Cefepime & s/p Azithromycin) - follow clinically re: fevers / WBC - Monitor hemodynamics closely - daily SAT's and SBT assessment as tolerated - wean supplemental oxygen for target O2 sat's > 92% acutely - VAP bundle addressed - continue lung protective strategies - bronchodilators with pulmonary hygiene per RT - wean per pulmonary driven protocols otherwise - Monitor urine output closely - bicarbonate infusion - avoid nephrotoxins, renally dose all medications - continue to avoid benzodiazepine's, reduce the possibility of delirium - continue Scopolamine for secretion control - continue wound care per RN/WCN - prn analgesia per CPOT score - Maintenance of sleep-wake cycle, avoid delirium - continue enteral nutritional support at goal rate as tolerated - G.I. & VTE prophylaxis - PT/OT/ROM exercises - continue mobility protocols for pressure ulcer prophylaxis - Monitor hemodynamics closely - continue other care per attending / other consultants - discharge planning ongoing concurrently .... Re-evaluate in am & prn CONDITION: CRITICAL PROGNOSIS: GUARDED CODE STATUS: FULL CODE The high probability of a clinically significant, sudden or life-threatening deterioration of the [respiratory, cardiovascular & neurologic] system(s) required my full and direct attention, intervention and personal management. The aggregate critical care time was [34] minutes without overlap. Time includes spent on; [x] Data Review and interpretation [x] Patient assessment and monitoring of vital signs [x] Documentation [x] Medication orders and management Subjective Date of service: 10/18/20 Principal diagnosis: Cardiac arrest; Septic Shock; Ac. hypoxemic & hypercapnic resp failure; MOE Interval history: Patient is seen today for: Cardiac arrest with ROSC; Severe septic and cardiogenic shock; Acute respiratory failure with hypoxemia and hypercarbia; Acute pulmonary edema; MOE; Lactic acidosis; severe metabolic acidosis; B ilateral pneumonia; aspiration pneumonia; Elevated troponins Seen and examined at bedside; 24hour events reviewed; nursing and respiratory care staff consulted; no adverse overnight events reported to me; resting peacefully in bed; tolerated bedside SBT; opens eyes to verbal stimulation but not following commands; tolerating tube feeds now; no emesis or overt aspiration; afebrile Objective Vital Signs - 12hr 10/17/20 10/18/20 10/18/20 23:46 00:00 00:16 Temperature Pulse Rate 93 H 98 H 84 Pulse Rate [ 90 From Monitor] Respiratory 14 13 27 H Rate Blood Pressure 132/60 110/77 169/106 O2 Sat by Pulse 96 93 96 Oximetry 10/18/20 10/18/20 10/18/20 00:26 00:30 00:45 Temperature 98.5 F Pulse Rate 85 86 Pulse Rate [ From Monitor] Respiratory 20 16 Rate Blood Pressure 159/106 160/89 O2 Sat by Pulse 96 96 Oximetry 10/18/20 10/18/20 10/18/20 01:00 01:15 01:30 Temperature Pulse Rate 85 89 84 Pulse Rate [ From Monitor] Respiratory 14 14 16 Rate Blood Pressure 117/67 118/71 121/79 O2 Sat by Pulse 96 95 95 Oximetry 10/18/20 10/18/20 10/18/20 01:45 02:00 02:16 Temperature Pulse Rate 85 86 91 H Pulse Rate [ From Monitor] Respiratory 16 16 16 Rate Blood Pressure 130/88 124/91 133/76 O2 Sat by Pulse 95 95 96 Oximetry 10/18/20 10/18/20 10/18/20 02:30 02:46 03:00 Temperature Pulse Rate 92 H 98 H 90 Pulse Rate [ From Monitor] Respiratory 14 17 18 Rate Blood Pressure 133/76 178/87 173/89 O2 Sat by Pulse 95 96 95 Oximetry 10/18/20 10/18/20 10/18/20 03:15 03:30 03:32 Temperature Pulse Rate 92 H 94 H 94 H Pulse Rate [ From Monitor] Respiratory 16 19 Rate Blood Pressure 161/98 161/98 176/98 O2 Sat by Pulse 95 99 96 Oximetry 10/18/20 10/18/20 10/18/20 03:45 04:00 04:15 Temperature 99.5 F Pulse Rate 91 H 92 H 91 H Pulse Rate [ 90 From Monitor] Respiratory 17 16 15 Rate Blood Pressure 174/86 156/86 142/76 O2 Sat by Pulse 95 95 95 Oximetry 10/18/20 10/18/20 10/18/20 04:30 04:45 05:00 Temperature Pulse Rate 91 H 93 H 93 H Pulse Rate [ From Monitor] Respiratory 15 17 18 Rate Blood Pressure 157/87 160/89 155/93 O2 Sat by Pulse 94 95 95 Oximetry 10/18/20 10/18/20 10/18/20 05:15 05:30 05:45 Temperature Pulse Rate 94 H 99 H 95 H Pulse Rate [ From Monitor] Respiratory 17 19 16 Rate Blood Pressure 165/85 165/85 175/82 O2 Sat by Pulse 96 96 95 Oximetry 10/18/20 10/18/20 10/18/20 05:51 06:00 06:15 Temperature Pulse Rate 100 H 87 88 Pulse Rate [ From Monitor] Respiratory 14 14 Rate Blood Pressure 175/82 143/85 146/86 O2 Sat by Pulse 96 96 Oximetry 10/18/20 10/18/20 10/18/20 06:30 06:45 07:00 Temperature Pulse Rate 91 H 85 87 Pulse Rate [ From Monitor] Respiratory 15 15 17 Rate Blood Pressure 142/95 151/104 151/104 O2 Sat by Pulse 95 95 95 Oximetry 10/18/20 10/18/20 10/18/20 07:15 07:30 07:45 Temperature Pulse Rate 89 90 88 Pulse Rate [ From Monitor] Respiratory 17 14 14 Rate Blood Pressure 163/94 166/85 169/97 O2 Sat by Pulse 95 96 96 Oximetry 10/18/20 10/18/20 10/18/20 08:00 08:15 08:30 Temperature 99.8 F H Pulse Rate 87 89 87 Pulse Rate [ 87 From Monitor] Respiratory 12 14 13 Rate Blood Pressure 163/85 151/76 148/80 O2 Sat by Pulse 97 94 96 Oximetry 10/18/20 10/18/20 10/18/20 08:45 09:00 09:16 Temperature Pulse Rate 91 H 88 87 Pulse Rate [ From Monitor] Respiratory 14 13 13 Rate Blood Pressure 169/95 155/77 144/73 O2 Sat by Pulse 97 96 97 Oximetry 10/18/20 10/18/20 10/18/20 09:30 09:45 10:00 Temperature Pulse Rate 87 89 86 Pulse Rate [ From Monitor] Respiratory 13 14 14 Rate Blood Pressure 142/78 148/83 148/83 O2 Sat by Pulse 97 97 97 Oximetry 10/18/20 10/18/20 10/18/20 10:16 10:30 10:46 Temperature Pulse Rate 88 91 H 90 Pulse Rate [ From Monitor] Respiratory 14 18 14 Rate Blood Pressure 149/111 149/111 179/82 O2 Sat by Pulse 97 98 97 Oximetry 10/18/20 10/18/20 10/18/20 11:00 11:03 11:16 Temperature Pulse Rate 91 H 89 90 Pulse Rate [ From Monitor] Respiratory 14 13 Rate Blood Pressure 179/86 179/86 151/91 O2 Sat by Pulse 97 96 97 Oximetry 10/18/20 11:35 Temperature Pulse Rate 90 Pulse Rate [ From Monitor] Respiratory Rate Blood Pressure 146/85 O2 Sat by Pulse Oximetry Constitutional: no acute distress, other (middle aged obese male with mildly increased respiratory efort at rest) Eyes: non-icteric ENT: oropharynx moist, other (ETT 23 cm ANNIE) Neck: supple, no lymphadenopathy, no JVD Effort: mildly labored Ascultation: Bilateral: clear, diminished breath sounds Percussion: Bilateral: not dull Cardiovascular: regular rate and rhythm Gastrointestinal: normoactive bowel sounds, soft, non-tender, non-distended (protuberant) Integumentary: normal Extremities: no cyanosis, no edema, pulses normal, no ischemia or petechiae Neurologic: non-focal exam (grossly; has spontaneous movements), pupils equal and round, unable to assess Psychiatric: other (unable to assess re: AMS / flat affect) CBC and BMP: 10/18/20 03:27 10/18/20 03:27 ABG, PT/INR, D-dimer: ABG ABG pH 7.419 pH Units (7.350-7.450) 10/16/20 05:10 POC ABG pCO2 59.6 mmHg (32.0-48.0) H 10/14/20 03:45 ABG pCO2 55.5 mm Hg 10/16/20 05:10 POC ABG pO2 93.3 mmHg (83-108) 10/14/20 03:45 ABG pO2 104.5 mm Hg (80.0-90.0) H 10/16/20 05:10 POC ABG HCO3 40.3 10/14/20 03:45 ABG O2 Saturation 97.7 % (95.0-99.0) 10/16/20 05:10 PT/INR, D-dimer PT 13.8 Sec. (12.2-14.9) 10/10/20 18:18 INR 1.07 (0.87-1.13) 10/10/20 18:18 D-Dimer 679.5 ng/mlDDU (0-234) H 10/10/20 10:48 Abnormal lab findings: Abnormal Labs 10/10/20 10/10/20 10/10/20 10:46 10:46 10:46 WBC RBC Hgb Hct RDW Lymph % (Auto) Lymph # (Auto) Seg Neutrophils % Lymphocytes % (Manual) Monocytes % (Manual) Seg Neutrophils # Seg Neutrophils # Man Lymphocytes # (Manual) Monocytes # (Manual) D-Dimer Heparin Anti-Xa Level ABG pH POC ABG pCO2 POC ABG pO2 ABG pO2 ABG HCO3 ABG O2 Saturation ABG Base Excess ABG Hemoglobin ABG Oxyhemoglobin ABG Sodium ABG Potassium ABG Chloride ABG Glucose VBG pH Oxyhemoglobin Carboxyhemoglobin Sodium Potassium Chloride Carbon Dioxide BUN Creatinine Glucose POC Glucose Lactic Acid 13.60 H* Calcium Phosphorus Magnesium Total Bilirubin AST ALT Ammonia 214.0 H Lactate Dehydrogenase Total Creatine Kinase CK-MB (CK-2) Troponin T NT-Pro-B Natriuret Pep Total Protein Albumin Triglycerides TSH 6.260 H Arterial Blood Glucose Arterial Blood Ionized Calcium Urine pH Urine WBC (Auto) Urine Creatinine 10/10/20 10/10/20 10/10/20 10:46 10:48 10:48 WBC RBC 5.28 H Hgb 15.5 H Hct 48.8 H RDW Lymph % (Auto) Lymph # (Auto) Seg Neutrophils % Lymphocytes % (Manual) 42.0 H Monocytes % (Manual) Seg Neutrophils # Seg Neutrophils # Man Lymphocytes # (Manual) Monocytes # (Manual) D-Dimer Heparin Anti-Xa Level ABG pH POC ABG pCO2 POC ABG pO2 ABG pO2 ABG HCO3 ABG O2 Saturation ABG Base Excess ABG Hemoglobin ABG Oxyhemoglobin ABG Sodium ABG Potassium ABG Chloride ABG Glucose VBG pH Oxyhemoglobin Carboxyhemoglobin Sodium Potassium 3.3 L Chloride 91.2 L Carbon Dioxide BUN Creatinine 1.8 H Glucose 231 H POC Glucose Lactic Acid Calcium Phosphorus Magnesium Total Bilirubin AST 60 H ALT 57 H Ammonia Lactate Dehydrogenase Total Creatine Kinase CK-MB (CK-2) Troponin T NT-Pro-B Natriuret Pep 1187 H Total Protein 9.0 H Albumin Triglycerides TSH Arterial Blood Glucose Arterial Blood Ionized Calcium Urine pH Urine WBC (Auto) Urine Creatinine 10/10/20 10/10/20 10/10/20 10:48 10:48 10:48 WBC RBC Hgb Hct RDW Lymph % (Auto) Lymph # (Auto) Seg Neutrophils % Lymphocytes % (Manual) Monocytes % (Manual) Seg Neutrophils # Seg Neutrophils # Man Lymphocytes # (Manual) Monocytes # (Manual) D-Dimer 679.5 H Heparin Anti-Xa Level ABG pH POC ABG pCO2 POC ABG pO2 ABG pO2 ABG HCO3 ABG O2 Saturation ABG Base Excess ABG Hemoglobin ABG Oxyhemoglobin ABG Sodium ABG Potassium ABG Chloride ABG Glucose VBG pH 6.870 L* Oxyhemoglobin Carboxyhemoglobin Sodium Potassium Chloride Carbon Dioxide BUN Creatinine Glucose POC Glucose Lactic Acid Calcium Phosphorus Magnesium Total Bilirubin AST ALT Ammonia Lactate Dehydrogenase 386 H Total Creatine Kinase CK-MB (CK-2) Troponin T NT-Pro-B Natriuret Pep Total Protein Albumin Triglycerides TSH Arterial Blood Glucose Arterial Blood Ionized Calcium Urine pH Urine WBC (Auto) Urine Creatinine 10/10/20 10/10/20 10/10/20 14:10 14:20 15:50 WBC RBC Hgb Hct RDW Lymph % (Auto) Lymph # (Auto) Seg Neutrophils % Lymphocytes % (Manual) Monocytes % (Manual) Seg Neutrophils # Seg Neutrophils # Man Lymphocytes # (Manual) Monocytes # (Manual) D-Dimer Heparin Anti-Xa Level ABG pH 7.175 L 7.247 L POC ABG pCO2 85.0 H POC ABG pO2 43.7 L ABG pO2 60.3 L ABG HCO3 32.0 H ABG O2 Saturation 86.1 L ABG Base Excess ABG Hemoglobin ABG Oxyhemoglobin 67.7 L ABG Sodium ABG Potassium ABG Chloride ABG Glucose 247 H VBG pH Oxyhemoglobin 84.4 L Carboxyhemoglobin Sodium Potassium Chloride Carbon Dioxide BUN Creatinine Glucose POC Glucose Lactic Acid 4.00 H* Calcium Phosphorus Magnesium Total Bilirubin AST ALT Ammonia Lactate Dehydrogenase Total Creatine Kinase CK-MB (CK-2) Troponin T NT-Pro-B Natriuret Pep Total Protein Albumin Triglycerides TSH Arterial Blood Glucose 247 H Arterial Blood Ionized Calcium 4.4 L Urine pH Urine WBC (Auto) Urine Creatinine 10/10/20 10/10/20 10/10/20 15:50 16:22 18:18 WBC RBC Hgb Hct RDW Lymph % (Auto) Lymph # (Auto) Seg Neutrophils % Lymphocytes % (Manual) Monocytes % (Manual) Seg Neutrophils # Seg Neutrophils # Man Lymphocytes # (Manual) Monocytes # (Manual) D-Dimer Heparin Anti-Xa Level ABG pH 7.171 L POC ABG pCO2 96.6 H POC ABG pO2 55.3 L ABG pO2 ABG HCO3 ABG O2 Saturation ABG Base Excess ABG Hemoglobin ABG Oxyhemoglobin 81.4 L ABG Sodium ABG Potassium ABG Chloride ABG Glucose 115 H VBG pH Oxyhemoglobin Carboxyhemoglobin Sodium Potassium Chloride Carbon Dioxide BUN Creatinine Glucose POC Glucose 132 H Lactic Acid Calcium Phosphorus Magnesium Total Bilirubin AST ALT Ammonia Lactate Dehydrogenase Total Creatine Kinase 1192 H CK-MB (CK-2) 21.7 H Troponin T 0.377 H* D NT-Pro-B Natriuret Pep Total Protein Albumin Triglycerides TSH Arterial Blood Glucose 115 H Arterial Blood Ionized Calcium Urine pH Urine WBC (Auto) Urine Creatinine 10/10/20 10/10/20 10/10/20 18:18 18:18 22:49 WBC 23.0 H RBC 5.12 H Hgb Hct RDW Lymph % (Auto) Lymph # (Auto) Seg Neutrophils % Lymphocytes % (Manual) 4.0 L Monocytes % (Manual) 9.0 H Seg Neutrophils # Seg Neutrophils # Man 13.8 H Lymphocytes # (Manual) 0.9 L Monocytes # (Manual) 2.1 H D-Dimer Heparin Anti-Xa Level ABG pH POC ABG pCO2 POC ABG pO2 ABG pO2 ABG HCO3 ABG O2 Saturation ABG Base Excess ABG Hemoglobin ABG Oxyhemoglobin ABG Sodium ABG Potassium ABG Chloride ABG Glucose VBG pH Oxyhemoglobin Carboxyhemoglobin Sodium 146 H Potassium Chloride Carbon Dioxide 34 H D BUN 27 H Creatinine 2.7 H Glucose 102 H POC Glucose Lactic Acid Calcium Phosphorus Magnesium Total Bilirubin AST 90 H ALT 66 H Ammonia Lactate Dehydrogenase Total Creatine Kinase CK-MB (CK-2) Troponin T 0.273 H* D NT-Pro-B Natriuret Pep Total Protein Albumin Triglycerides TSH Arterial Blood Glucose Arterial Blood Ionized Calcium Urine pH Urine WBC (Auto) Urine Creatinine 10/11/20 10/11/20 10/11/20 02:00 02:00 02:00 WBC 17.3 H RBC Hgb Hct RDW Lymph % (Auto) 3.9 L Lymph # (Auto) 0.7 L Seg Neutrophils % 93.0 H Lymphocytes % (Manual) Monocytes % (Manual) Seg Neutrophils # 16.1 H Seg Neutrophils # Man Lymphocytes # (Manual) Monocytes # (Manual) D-Dimer Heparin Anti-Xa Level ABG pH POC ABG pCO2 POC ABG pO2 ABG pO2 ABG HCO3 ABG O2 Saturation ABG Base Excess ABG Hemoglobin ABG Oxyhemoglobin ABG Sodium ABG Potassium ABG Chloride ABG Glucose VBG pH Oxyhemoglobin Carboxyhemoglobin Sodium 149 H Potassium 3.3 L Chloride 95.3 L Carbon Dioxide 37 H BUN 29 H Creatinine 2.6 H Glucose POC Glucose Lactic Acid Calcium Phosphorus Magnesium Total Bilirubin AST 80 H ALT 59 H Ammonia Lactate Dehydrogenase Total Creatine Kinase CK-MB (CK-2) Troponin T 0.201 H* D NT-Pro-B Natriuret Pep Total Protein Albumin 3.6 L Triglycerides TSH Arterial Blood Glucose Arterial Blood Ionized Calcium Urine pH Urine WBC (Auto) Urine Creatinine 10/11/20 10/11/20 10/11/20 03:51 08:35 11:15 WBC RBC Hgb Hct RDW Lymph % (Auto) Lymph # (Auto) Seg Neutrophils % Lymphocytes % (Manual) Monocytes % (Manual) Seg Neutrophils # Seg Neutrophils # Man Lymphocytes # (Manual) Monocytes # (Manual) D-Dimer Heparin Anti-Xa Level 0.22 L ABG pH 7.491 H POC ABG pCO2 57.6 H POC ABG pO2 ABG pO2 ABG HCO3 ABG O2 Saturation ABG Base Excess ABG Hemoglobin ABG Oxyhemoglobin ABG Sodium 150.0 H ABG Potassium 3.1 L ABG Chloride 96.0 L ABG Glucose 122 H VBG pH Oxyhemoglobin Carboxyhemoglobin Sodium Potassium Chloride Carbon Dioxide BUN Creatinine Glucose POC Glucose 151 H Lactic Acid Calcium Phosphorus Magnesium Total Bilirubin AST ALT Ammonia Lactate Dehydrogenase Total Creatine Kinase CK-MB (CK-2) Troponin T NT-Pro-B Natriuret Pep Total Protein Albumin Triglycerides TSH Arterial Blood Glucose 122 H Arterial Blood Ionized Calcium 3.9 L Urine pH Urine WBC (Auto) Urine Creatinine 10/11/20 10/11/20 10/11/20 13:30 13:30 13:30 WBC 15.0 H RBC Hgb Hct RDW Lymph % (Auto) Lymph # (Auto) Seg Neutrophils % Lymphocytes % (Manual) Monocytes % (Manual) Seg Neutrophils # Seg Neutrophils # Man Lymphocytes # (Manual) Monocytes # (Manual) D-Dimer Heparin Anti-Xa Level ABG pH POC ABG pCO2 POC ABG pO2 ABG pO2 ABG HCO3 ABG O2 Saturation ABG Base Excess ABG Hemoglobin ABG Oxyhemoglobin ABG Sodium ABG Potassium ABG Chloride ABG Glucose VBG pH Oxyhemoglobin Carboxyhemoglobin Sodium Potassium Chloride Carbon Dioxide BUN Creatinine Glucose POC Glucose Lactic Acid Calcium Phosphorus Magnesium Total Bilirubin AST ALT Ammonia Lactate Dehydrogenase Total Creatine Kinase CK-MB (CK-2) Troponin T NT-Pro-B Natriuret Pep Total Protein Albumin Triglycerides TSH Arterial Blood Glucose Arterial Blood Ionized Calcium Urine pH 9.0 H Urine WBC (Auto) 18.0 H Urine Creatinine 80.5 H 10/11/20 10/11/20 10/12/20 17:17 23:14 03:53 WBC RBC Hgb Hct RDW Lymph % (Auto) Lymph # (Auto) Seg Neutrophils % Lymphocytes % (Manual) Monocytes % (Manual) Seg Neutrophils # Seg Neutrophils # Man Lymphocytes # (Manual) Monocytes # (Manual) D-Dimer Heparin Anti-Xa Level ABG pH 7.545 H POC ABG pCO2 54.6 H POC ABG pO2 231.9 H ABG pO2 ABG HCO3 ABG O2 Saturation ABG Base Excess ABG Hemoglobin ABG Oxyhemoglobin 98.5 H ABG Sodium 150.5 H ABG Potassium 3.2 L ABG Chloride 96.0 L ABG Glucose 148 H VBG pH Oxyhemoglobin Carboxyhemoglobin Sodium Potassium Chloride Carbon Dioxide BUN Creatinine Glucose POC Glucose 121 H 135 H Lactic Acid Calcium Phosphorus Magnesium Total Bilirubin AST ALT Ammonia Lactate Dehydrogenase Total Creatine Kinase CK-MB (CK-2) Troponin T NT-Pro-B Natriuret Pep Total Protein Albumin Triglycerides TSH Arterial Blood Glucose 148 H Arterial Blood Ionized Calcium 3.8 L Urine pH Urine WBC (Auto) Urine Creatinine 10/12/20 10/12/20 10/12/20 04:00 05:10 05:12 WBC 14.3 H RBC Hgb 11.6 L Hct 35.2 L RDW Lymph % (Auto) Lymph # (Auto) Seg Neutrophils % Lymphocytes % (Manual) Monocytes % (Manual) Seg Neutrophils # Seg Neutrophils # Man Lymphocytes # (Manual) Monocytes # (Manual) D-Dimer Heparin Anti-Xa Level ABG pH POC ABG pCO2 POC ABG pO2 ABG pO2 ABG HCO3 ABG O2 Saturation ABG Base Excess ABG Hemoglobin ABG Oxyhemoglobin ABG Sodium ABG Potassium ABG Chloride ABG Glucose VBG pH Oxyhemoglobin Carboxyhemoglobin Sodium 155 H Potassium 3.3 L Chloride 97.9 L Carbon Dioxide 47 H* D BUN 50 H Creatinine 3.4 H Glucose 146 H POC Glucose 137 H Lactic Acid Calcium 8.0 L Phosphorus Magnesium Total Bilirubin AST ALT Ammonia Lactate Dehydrogenase Total Creatine Kinase CK-MB (CK-2) Troponin T 0.125 H* D NT-Pro-B Natriuret Pep Total Protein Albumin Triglycerides TSH Arterial Blood Glucose Arterial Blood Ionized Calcium Urine pH Urine WBC (Auto) Urine Creatinine 10/12/20 10/12/20 10/12/20 11:39 16:01 19:49 WBC RBC Hgb Hct RDW Lymph % (Auto) Lymph # (Auto) Seg Neutrophils % Lymphocytes % (Manual) Monocytes % (Manual) Seg Neutrophils # Seg Neutrophils # Man Lymphocytes # (Manual) Monocytes # (Manual) D-Dimer Heparin Anti-Xa Level ABG pH POC ABG pCO2 POC ABG pO2 ABG pO2 ABG HCO3 ABG O2 Saturation ABG Base Excess ABG Hemoglobin ABG Oxyhemoglobin ABG Sodium ABG Potassium ABG Chloride ABG Glucose VBG pH Oxyhemoglobin Carboxyhemoglobin Sodium 157 H Potassium 3.3 L Chloride Carbon Dioxide 47 H* BUN 52 H Creatinine 3.0 H Glucose 137 H POC Glucose 138 H 119 H Lactic Acid Calcium 8.0 L Phosphorus Magnesium Total Bilirubin AST ALT Ammonia Lactate Dehydrogenase Total Creatine Kinase CK-MB (CK-2) Troponin T NT-Pro-B Natriuret Pep Total Protein Albumin Triglycerides TSH Arterial Blood Glucose Arterial Blood Ionized Calcium Urine pH Urine WBC (Auto) Urine Creatinine 10/12/20 10/13/20 10/13/20 23:37 02:28 04:52 WBC RBC Hgb Hct RDW Lymph % (Auto) Lymph # (Auto) Seg Neutrophils % Lymphocytes % (Manual) Monocytes % (Manual) Seg Neutrophils # Seg Neutrophils # Man Lymphocytes # (Manual) Monocytes # (Manual) D-Dimer Heparin Anti-Xa Level ABG pH 7.485 H POC ABG pCO2 57.1 H POC ABG pO2 ABG pO2 ABG HCO3 ABG O2 Saturation ABG Base Excess ABG Hemoglobin ABG Oxyhemoglobin ABG Sodium 152.4 H ABG Potassium ABG Chloride ABG Glucose 129 H VBG pH Oxyhemoglobin Carboxyhemoglobin Sodium 155 H Potassium Chloride Carbon Dioxide 45 H* BUN 52 H Creatinine 2.7 H Glucose 121 H POC Glucose 131 H Lactic Acid Calcium Phosphorus Magnesium 2.40 H Total Bilirubin AST ALT Ammonia Lactate Dehydrogenase Total Creatine Kinase CK-MB (CK-2) Troponin T NT-Pro-B Natriuret Pep Total Protein Albumin Triglycerides 278 H TSH Arterial Blood Glucose 129 H Arterial Blood Ionized Calcium 4.1 L Urine pH Urine WBC (Auto) Urine Creatinine 10/13/20 10/13/20 10/13/20 04:52 05:13 11:37 WBC 14.7 H RBC Hgb 11.7 L Hct RDW 15.8 H Lymph % (Auto) Lymph # (Auto) Seg Neutrophils % Lymphocytes % (Manual) Monocytes % (Manual) Seg Neutrophils # Seg Neutrophils # Man Lymphocytes # (Manual) Monocytes # (Manual) D-Dimer Heparin Anti-Xa Level ABG pH POC ABG pCO2 POC ABG pO2 ABG pO2 ABG HCO3 ABG O2 Saturation ABG Base Excess ABG Hemoglobin ABG Oxyhemoglobin ABG Sodium ABG Potassium ABG Chloride ABG Glucose VBG pH Oxyhemoglobin Carboxyhemoglobin Sodium Potassium Chloride Carbon Dioxide BUN Creatinine Glucose POC Glucose 116 H 116 H Lactic Acid Calcium Phosphorus Magnesium Total Bilirubin AST ALT Ammonia Lactate Dehydrogenase Total Creatine Kinase CK-MB (CK-2) Troponin T NT-Pro-B Natriuret Pep Total Protein Albumin Triglycerides TSH Arterial Blood Glucose Arterial Blood Ionized Calcium Urine pH Urine WBC (Auto) Urine Creatinine 10/13/20 10/14/20 10/14/20 17:50 03:45 04:46 WBC 11.1 H RBC Hgb Hct RDW 15.3 H Lymph % (Auto) Lymph # (Auto) Seg Neutrophils % Lymphocytes % (Manual) Monocytes % (Manual) Seg Neutrophils # Seg Neutrophils # Man Lymphocytes # (Manual) Monocytes # (Manual) D-Dimer Heparin Anti-Xa Level ABG pH POC ABG pCO2 59.6 H POC ABG pO2 ABG pO2 ABG HCO3 ABG O2 Saturation ABG Base Excess ABG Hemoglobin ABG Oxyhemoglobin ABG Sodium 151.4 H ABG Potassium 3.3 L ABG Chloride ABG Glucose 138 H VBG pH Oxyhemoglobin Carboxyhemoglobin 1.6 H Sodium Potassium Chloride Carbon Dioxide BUN Creatinine Glucose POC Glucose 140 H Lactic Acid Calcium Phosphorus Magnesium Total Bilirubin AST ALT Ammonia Lactate Dehydrogenase Total Creatine Kinase CK-MB (CK-2) Troponin T NT-Pro-B Natriuret Pep Total Protein Albumin Triglycerides TSH Arterial Blood Glucose 138 H Arterial Blood Ionized Calcium 4.5 L Urine pH Urine WBC (Auto) Urine Creatinine 10/14/20 10/14/20 10/14/20 04:46 05:10 11:11 WBC RBC Hgb Hct RDW Lymph % (Auto) Lymph # (Auto) Seg Neutrophils % Lymphocytes % (Manual) Monocytes % (Manual) Seg Neutrophils # Seg Neutrophils # Man Lymphocytes # (Manual) Monocytes # (Manual) D-Dimer Heparin Anti-Xa Level ABG pH POC ABG pCO2 POC ABG pO2 ABG pO2 ABG HCO3 ABG O2 Saturation ABG Base Excess ABG Hemoglobin ABG Oxyhemoglobin ABG Sodium ABG Potassium ABG Chloride ABG Glucose VBG pH Oxyhemoglobin Carboxyhemoglobin Sodium 152 H Potassium 3.5 L Chloride Carbon Dioxide 38 H D BUN 46 H Creatinine 2.3 H Glucose 127 H POC Glucose 116 H 114 H Lactic Acid Calcium Phosphorus Magnesium Total Bilirubin AST ALT Ammonia Lactate Dehydrogenase Total Creatine Kinase CK-MB (CK-2) Troponin T NT-Pro-B Natriuret Pep Total Protein Albumin Triglycerides TSH Arterial Blood Glucose Arterial Blood Ionized Calcium Urine pH Urine WBC (Auto) Urine Creatinine 10/14/20 10/14/20 10/15/20 18:53 23:23 04:12 WBC RBC Hgb Hct RDW Lymph % (Auto) Lymph # (Auto) Seg Neutrophils % Lymphocytes % (Manual) Monocytes % (Manual) Seg Neutrophils # Seg Neutrophils # Man Lymphocytes # (Manual) Monocytes # (Manual) D-Dimer Heparin Anti-Xa Level ABG pH POC ABG pCO2 POC ABG pO2 ABG pO2 ABG HCO3 ABG O2 Saturation ABG Base Excess ABG Hemoglobin ABG Oxyhemoglobin ABG Sodium ABG Potassium ABG Chloride ABG Glucose VBG pH Oxyhemoglobin Carboxyhemoglobin Sodium 149 H Potassium 3.2 L Chloride Carbon Dioxide 37 H BUN 40 H Creatinine 2.0 H Glucose 124 H POC Glucose 128 H 113 H Lactic Acid Calcium Phosphorus Magnesium Total Bilirubin AST ALT Ammonia Lactate Dehydrogenase Total Creatine Kinase CK-MB (CK-2) Troponin T NT-Pro-B Natriuret Pep Total Protein Albumin Triglycerides TSH Arterial Blood Glucose Arterial Blood Ionized Calcium Urine pH Urine WBC (Auto) Urine Creatinine 10/15/20 10/15/20 10/15/20 04:22 11:39 17:36 WBC RBC Hgb Hct RDW Lymph % (Auto) Lymph # (Auto) Seg Neutrophils % Lymphocytes % (Manual) Monocytes % (Manual) Seg Neutrophils # Seg Neutrophils # Man Lymphocytes # (Manual) Monocytes # (Manual) D-Dimer Heparin Anti-Xa Level ABG pH POC ABG pCO2 POC ABG pO2 ABG pO2 115.0 H ABG HCO3 38.1 H ABG O2 Saturation ABG Base Excess 11.3 H ABG Hemoglobin 11.0 L ABG Oxyhemoglobin ABG Sodium ABG Potassium ABG Chloride ABG Glucose VBG pH Oxyhemoglobin Carboxyhemoglobin Sodium Potassium Chloride Carbon Dioxide BUN Creatinine Glucose POC Glucose 123 H 118 H Lactic Acid Calcium Phosphorus Magnesium Total Bilirubin AST ALT Ammonia Lactate Dehydrogenase Total Creatine Kinase CK-MB (CK-2) Troponin T NT-Pro-B Natriuret Pep Total Protein Albumin Triglycerides TSH Arterial Blood Glucose Arterial Blood Ionized Calcium Urine pH Urine WBC (Auto) Urine Creatinine 10/15/20 10/16/20 10/16/20 23:18 03:13 05:10 WBC RBC Hgb Hct RDW Lymph % (Auto) Lymph # (Auto) Seg Neutrophils % Lymphocytes % (Manual) Monocytes % (Manual) Seg Neutrophils # Seg Neutrophils # Man Lymphocytes # (Manual) Monocytes # (Manual) D-Dimer Heparin Anti-Xa Level ABG pH POC ABG pCO2 POC ABG pO2 ABG pO2 104.5 H ABG HCO3 35.1 H ABG O2 Saturation ABG Base Excess 9.5 H ABG Hemoglobin 7.9 L ABG Oxyhemoglobin ABG Sodium ABG Potassium ABG Chloride ABG Glucose VBG pH Oxyhemoglobin Carboxyhemoglobin Sodium Potassium 3.3 L Chloride Carbon Dioxide 33 H BUN 37 H Creatinine 1.4 H Glucose 148 H POC Glucose 135 H Lactic Acid Calcium Phosphorus Magnesium 2.40 H Total Bilirubin AST ALT Ammonia Lactate Dehydrogenase Total Creatine Kinase CK-MB (CK-2) Troponin T NT-Pro-B Natriuret Pep Total Protein Albumin Triglycerides TSH Arterial Blood Glucose Arterial Blood Ionized Calcium Urine pH Urine WBC (Auto) Urine Creatinine 10/16/20 10/16/20 10/16/20 06:36 11:08 17:07 WBC RBC Hgb Hct RDW Lymph % (Auto) Lymph # (Auto) Seg Neutrophils % Lymphocytes % (Manual) Monocytes % (Manual) Seg Neutrophils # Seg Neutrophils # Man Lymphocytes # (Manual) Monocytes # (Manual) D-Dimer Heparin Anti-Xa Level ABG pH POC ABG pCO2 POC ABG pO2 ABG pO2 ABG HCO3 ABG O2 Saturation ABG Base Excess ABG Hemoglobin ABG Oxyhemoglobin ABG Sodium ABG Potassium ABG Chloride ABG Glucose VBG pH Oxyhemoglobin Carboxyhemoglobin Sodium Potassium Chloride Carbon Dioxide BUN Creatinine Glucose POC Glucose 150 H 111 H 132 H Lactic Acid Calcium Phosphorus Magnesium Total Bilirubin AST ALT Ammonia Lactate Dehydrogenase Total Creatine Kinase CK-MB (CK-2) Troponin T NT-Pro-B Natriuret Pep Total Protein Albumin Triglycerides TSH Arterial Blood Glucose Arterial Blood Ionized Calcium Urine pH Urine WBC (Auto) Urine Creatinine 10/16/20 10/17/20 10/17/20 23:38 03:32 03:32 WBC RBC Hgb Hct RDW Lymph % (Auto) Lymph # (Auto) Seg Neutrophils % Lymphocytes % (Manual) Monocytes % (Manual) Seg Neutrophils # Seg Neutrophils # Man Lymphocytes # (Manual) Monocytes # (Manual) D-Dimer Heparin Anti-Xa Level ABG pH POC ABG pCO2 POC ABG pO2 ABG pO2 ABG HCO3 ABG O2 Saturation ABG Base Excess ABG Hemoglobin ABG Oxyhemoglobin ABG Sodium ABG Potassium ABG Chloride ABG Glucose VBG pH Oxyhemoglobin Carboxyhemoglobin Sodium 146 H Potassium Chloride Carbon Dioxide 32 H BUN 57 H Creatinine 2.4 H D Glucose 124 H POC Glucose 117 H Lactic Acid Calcium Phosphorus 5.20 H D Magnesium Total Bilirubin AST ALT Ammonia Lactate Dehydrogenase Total Creatine Kinase CK-MB (CK-2) Troponin T NT-Pro-B Natriuret Pep Total Protein Albumin Triglycerides TSH Arterial Blood Glucose Arterial Blood Ionized Calcium Urine pH Urine WBC (Auto) Urine Creatinine 10/17/20 10/17/20 10/18/20 05:10 17:33 00:13 WBC RBC Hgb Hct RDW Lymph % (Auto) Lymph # (Auto) Seg Neutrophils % Lymphocytes % (Manual) Monocytes % (Manual) Seg Neutrophils # Seg Neutrophils # Man Lymphocytes # (Manual) Monocytes # (Manual) D-Dimer Heparin Anti-Xa Level ABG pH POC ABG pCO2 POC ABG pO2 ABG pO2 ABG HCO3 ABG O2 Saturation ABG Base Excess ABG Hemoglobin ABG Oxyhemoglobin ABG Sodium ABG Potassium ABG Chloride ABG Glucose VBG pH Oxyhemoglobin Carboxyhemoglobin Sodium Potassium Chloride Carbon Dioxide BUN Creatinine Glucose POC Glucose 122 H 121 H 23 L Lactic Acid Calcium Phosphorus Magnesium Total Bilirubin AST ALT Ammonia Lactate Dehydrogenase Total Creatine Kinase CK-MB (CK-2) Troponin T NT-Pro-B Natriuret Pep Total Protein Albumin Triglycerides TSH Arterial Blood Glucose Arterial Blood Ionized Calcium Urine pH Urine WBC (Auto) Urine Creatinine 10/18/20 10/18/20 10/18/20 00:16 03:27 03:27 WBC RBC Hgb 11.7 L Hct RDW Lymph % (Auto) Lymph # (Auto) Seg Neutrophils % Lymphocytes % (Manual) Monocytes % (Manual) Seg Neutrophils # Seg Neutrophils # Man Lymphocytes # (Manual) Monocytes # (Manual) D-Dimer Heparin Anti-Xa Level ABG pH POC ABG pCO2 POC ABG pO2 ABG pO2 ABG HCO3 ABG O2 Saturation ABG Base Excess ABG Hemoglobin ABG Oxyhemoglobin ABG Sodium ABG Potassium ABG Chloride ABG Glucose VBG pH Oxyhemoglobin Carboxyhemoglobin Sodium Potassium Chloride 97.6 L Carbon Dioxide BUN 90 H Creatinine 3.3 H Glucose 146 H POC Glucose 134 H Lactic Acid Calcium Phosphorus Magnesium Total Bilirubin 1.70 H AST ALT Ammonia Lactate Dehydrogenase Total Creatine Kinase CK-MB (CK-2) Troponin T NT-Pro-B Natriuret Pep Total Protein Albumin 3.1 L Triglycerides TSH Arterial Blood Glucose Arterial Blood Ionized Calcium Urine pH Urine WBC (Auto) Urine Creatinine 10/18/20 10/18/20 10/18/20 05:09 11:19 Unknown WBC RBC Hgb Hct RDW Lymph % (Auto) Lymph # (Auto) Seg Neutrophils % Lymphocytes % (Manual) Monocytes % (Manual) Seg Neutrophils # Seg Neutrophils # Man Lymphocytes # (Manual) Monocytes # (Manual) D-Dimer Heparin Anti-Xa Level ABG pH POC ABG pCO2 POC ABG pO2 ABG pO2 ABG HCO3 ABG O2 Saturation ABG Base Excess ABG Hemoglobin ABG Oxyhemoglobin ABG Sodium ABG Potassium ABG Chloride ABG Glucose VBG pH Oxyhemoglobin Carboxyhemoglobin Sodium Potassium Chloride Carbon Dioxide BUN Creatinine Glucose POC Glucose 144 H 145 H Lactic Acid Calcium Phosphorus Magnesium Total Bilirubin AST ALT Ammonia Lactate Dehydrogenase Total Creatine Kinase CK-MB (CK-2) Troponin T NT-Pro-B Natriuret Pep Total Protein Albumin Triglycerides TSH Arterial Blood Glucose Arterial Blood Ionized Calcium Urine pH Urine WBC (Auto) 115.0 H Urine Creatinine Chest x-ray: other (none today) Allied health notes reviewed: nursing
--- NOTE | 2020-10-18 15:10 | Progress Note ---
Assessment and Plan 1. Acute kidney injury: Vasomotor MOE in the setting of Cardiac arrest and shock. Renal US negative for hydro. Monitor renal function. Creatinine level continue to increase. Requested the RN to do bladder scan now. Avoid nephrotoxic agents. Meds dosage based on GFR. 2. FEN: Volume overload, improved, monitor. Hypernatremia, sodium level is better, monitor. Metabolic alkalosis, improving, monitor. On TPN. Monitor lytes and volume status. 3. Acute hypoxic respiratory failure, POA: 2/2 PNA and CHF. COVID test negative. Intubated on vent. 4. Sepsis, POA: 2/2 PNA. Abx. 5. NSTEMI type II: Post cardiac arrest EKG showed no acute ischemic changes. Followed by Cards. 6. Acute CHF: Echo showed Normal EF and mild DD. 7. S/p Cardiac arrest. 8. GI bleed: Followed by GI. 9. Elevated Transaminases: Trend. 10. HTN: Monitor. Subjective: Patient was seen and examined at the bedside. Objective: General appearance: well-developed, appears stated age, intubated, on vent HEENT: ATNC, MONTSE Neck: trachea midline Respiratory: ctab Heart: regular, S1S2, no murmur Gastrointestinal: soft, normoactive bowel sounds, not tender Integumentary: no rash, warm and dry Ext: no edema Neurologic: not responding Musculoskeletal: no obvious deformity : condom catheter Subjective Date of service: 10/18/20 Principal diagnosis: Cardiac arrest; Septic Shock; Ac. hypoxemic & hypercapnic resp failure; MOE Objective - Vital Signs Vital signs: Vital Signs - 12hr 10/18/20 10/18/20 10/18/20 03:15 03:30 03:32 Temperature Pulse Rate 92 H 94 H 94 H Pulse Rate [ From Monitor] Respiratory 16 19 Rate Blood Pressure 161/98 161/98 176/98 O2 Sat by Pulse 95 99 96 Oximetry 10/18/20 10/18/20 10/18/20 03:45 04:00 04:15 Temperature 99.5 F Pulse Rate 91 H 92 H 91 H Pulse Rate [ 90 From Monitor] Respiratory 17 16 15 Rate Blood Pressure 174/86 156/86 142/76 O2 Sat by Pulse 95 95 95 Oximetry 10/18/20 10/18/20 10/18/20 04:30 04:45 05:00 Temperature Pulse Rate 91 H 93 H 93 H Pulse Rate [ From Monitor] Respiratory 15 17 18 Rate Blood Pressure 157/87 160/89 155/93 O2 Sat by Pulse 94 95 95 Oximetry 10/18/20 10/18/20 10/18/20 05:15 05:30 05:45 Temperature Pulse Rate 94 H 99 H 95 H Pulse Rate [ From Monitor] Respiratory 17 19 16 Rate Blood Pressure 165/85 165/85 175/82 O2 Sat by Pulse 96 96 95 Oximetry 10/18/20 10/18/20 10/18/20 05:51 06:00 06:15 Temperature Pulse Rate 100 H 87 88 Pulse Rate [ From Monitor] Respiratory 14 14 Rate Blood Pressure 175/82 143/85 146/86 O2 Sat by Pulse 96 96 Oximetry 10/18/20 10/18/20 10/18/20 06:30 06:45 07:00 Temperature Pulse Rate 91 H 85 87 Pulse Rate [ From Monitor] Respiratory 15 15 17 Rate Blood Pressure 142/95 151/104 151/104 O2 Sat by Pulse 95 95 95 Oximetry 10/18/20 10/18/20 10/18/20 07:15 07:19 07:30 Temperature Pulse Rate 89 87 90 Pulse Rate [ From Monitor] Respiratory 17 14 Rate Blood Pressure 163/94 166/85 O2 Sat by Pulse 95 96 96 Oximetry 10/18/20 10/18/20 10/18/20 07:45 08:00 08:15 Temperature 99.8 F H Pulse Rate 88 87 89 Pulse Rate [ 87 From Monitor] Respiratory 14 12 14 Rate Blood Pressure 169/97 163/85 151/76 O2 Sat by Pulse 96 97 94 Oximetry 10/18/20 10/18/20 10/18/20 08:30 08:45 09:00 Temperature Pulse Rate 87 91 H 88 Pulse Rate [ From Monitor] Respiratory 13 14 13 Rate Blood Pressure 148/80 169/95 155/77 O2 Sat by Pulse 96 97 96 Oximetry 10/18/20 10/18/20 10/18/20 09:16 09:30 09:45 Temperature Pulse Rate 87 87 89 Pulse Rate [ From Monitor] Respiratory 13 13 14 Rate Blood Pressure 144/73 142/78 148/83 O2 Sat by Pulse 97 97 97 Oximetry 10/18/20 10/18/20 10/18/20 10:00 10:16 10:30 Temperature Pulse Rate 86 88 91 H Pulse Rate [ From Monitor] Respiratory 14 14 18 Rate Blood Pressure 148/83 149/111 149/111 O2 Sat by Pulse 97 97 98 Oximetry 10/18/20 10/18/20 10/18/20 10:46 11:00 11:03 Temperature Pulse Rate 90 91 H 89 Pulse Rate [ From Monitor] Respiratory 14 14 Rate Blood Pressure 179/82 179/86 179/86 O2 Sat by Pulse 97 97 96 Oximetry 10/18/20 10/18/20 10/18/20 11:16 11:30 11:35 Temperature Pulse Rate 90 89 90 Pulse Rate [ From Monitor] Respiratory 13 14 Rate Blood Pressure 151/91 151/91 146/85 O2 Sat by Pulse 97 97 Oximetry 10/18/20 10/18/20 10/18/20 11:45 12:00 12:15 Temperature 99.2 F Pulse Rate 83 80 83 Pulse Rate [ 85 From Monitor] Respiratory 13 11 L 13 Rate Blood Pressure 151/85 142/75 130/73 O2 Sat by Pulse 97 99 98 Oximetry 10/18/20 10/18/20 10/18/20 12:30 12:46 13:00 Temperature Pulse Rate 80 82 80 Pulse Rate [ From Monitor] Respiratory 12 13 11 L Rate Blood Pressure 134/74 146/74 156/83 O2 Sat by Pulse 99 99 99 Oximetry 10/18/20 13:16 Temperature Pulse Rate 86 Pulse Rate [ From Monitor] Respiratory 17 Rate Blood Pressure 170/109 O2 Sat by Pulse 98 Oximetry - Lab 10/18/20 03:27 10/18/20 03:27 Most recent lab results ABG pH 7.419 pH Units (7.350-7.450) 10/16/20 05:10 ABG pCO2 55.5 mm Hg 10/16/20 05:10 ABG pO2 104.5 mm Hg (80.0-90.0) H 10/16/20 05:10 ABG HCO3 35.1 mmol/L (20.0-26.0) H 10/16/20 05:10 ABG O2 Saturation 97.7 % (95.0-99.0) 10/16/20 05:10 Calcium 8.7 mg/dL (8.4-10.2) 10/18/20 03:27 Phosphorus 5.20 mg/dL (2.5-4.5) H D 10/17/20 03:32 Magnesium 2.30 mg/dL (1.7-2.3) 10/17/20 03:32 Urine Creatinine 80.5 mg/dL (0.1-20.0) H 10/11/20 13:30 Urine Sodium 110 mmol/L 10/11/20 13:30 Medications & Allergies - Medications Allergies/Adverse Reactions: Allergies No Known Allergies Allergy (Unverified 07/06/13 15:19) Home Medications: Home Medications Medication Instructions Recorded Confirmed Last Taken Type Albuterol Sulfate [Ventolin HFA] 2 puff IH Q4H PRN #1 hfa.aer.ad 07/06/13 Unknown Rx Prednisone 40 mg PO QDAY #8 tablet 07/06/13 Unknown Rx Albuterol Mdi (or & Nicu Only) 2 puff IH Q4H PRN #1 inha 07/07/13 Unknown Rx [ProAir HFA Inhaler] Azithromycin [Zithromax Z-KYLE] 500 mg PO QDAY #5 tab 07/07/13 Unknown Rx HYDROcodone/APAP 5-325 [[place] 2 each PO Q6H PRN #30 tablet 07/07/13 Unknown Rx 5-325 mg TAB] predniSONE [Deltasone] 40 mg PO QDAY #10 tablet 07/07/13 Unknown Rx Active Medications: Generic Name Dose Route Start Last Admin Trade Name Freq PRN Reason Stop Dose Admin Acetaminophen 650 mg 10/10/20 21:51 10/17/20 19:52 Acetaminophen 325 Mg Tab PO 650 mg Q4H PRN Administration Pain MILD(1-3)/Fever >100.5/[place] Acetaminophen 650 mg 10/11/20 11:24 10/17/20 17:16 Acetaminophen 650 Mg Rect Supp [place] 650 mg Q6H PRN Administration Fever >101 Albuterol 2.5 mg 10/11/20 13:12 Albuterol 2.5 Mg/3 Ml Nebu IH Q6HRT PRN Shortness Of Breath Lipase/Protease/Amylase 1 each 10/10/20 22:18 Lipase 10,500/Protease 25,000/Amylase 43,750 (Units) Dr Santana FEEDTUBE PRN PRN For Clogged Feeding Tube Clonidine HCl 0.3 mg 10/14/20 15:00 10/14/20 16:00 Clonidine Tts 0.3 Mg/24 Hr Patch TD 0.3 mg Fr PEPITO Administration Docusate Sodium 100 mg 10/16/20 22:00 10/18/20 09:59 Docusate Sodium 100 Mg/10 Ml Oral Liqd PO 100 mg BID PEPITO Administration Fentanyl 50 mcg 10/16/20 14:10 Fentanyl 100 Mcg/2 Ml Inj IV Q10MIN PRN ANALGESIA Fluticasone Propionate 50 mcg 10/18/20 14:00 Fluticasone Propionate Nasal [employer] 16 Gm NS BID PEPITO Glycopyrrolate 0.2 mg 10/16/20 15:00 10/18/20 06:00 Glycopyrrolate 0.4 Mg/2 Ml Inj IV 10/19/20 14:59 0.2 mg Q8H PEPITO Administration Heparin Sodium (Porcine) 5,000 unit 10/11/20 22:00 10/18/20 10:00 Heparin 5,000 Unit/1 Ml Vial SUB-Q 5,000 unit Q12HR PEPITO Administration Hydralazine HCl 5 mg 10/15/20 20:25 10/16/20 14:46 Hydralazine 20 Mg/1 Ml Inj IV 5 mg Q6H PRN Administration Hypertension Hydromorphone HCl 0.5 mg 10/10/20 21:51 10/15/20 14:45 Hydromorphone 1 Mg/1 Ml Inj IV 0.5 mg Q3H PRN Administration Pain , Severe (7-10) Hydrophilic Ointment 1 applic 10/10/20 10:34 Lip Therapy Vaseline TP Q2HR PRN Dry Lips Propofol 1,000 mg in 100 mls @ 4.23 mls/hr 10/10/20 12:00 10/17/20 00:36 Diprivan 10 Mg/Ml IV 0 mcg/kg/min TITR PEPITO 0 mls/hr Titration Protocol 5 MCG/KG/MIN Nitroglycerin/Dextrose 50 mg in 250 mls @ 3 mls/hr 10/10/20 13:00 10/10/20 13:17 Tridil Drip 50mg/250ml IV 0 mcg/min TITR PEPITO 0 mls/hr Titration Protocol 10 MCG/MIN Norepinephrine 8 mg/ Sodium 250 mls @ 3.75 mls/hr 10/10/20 14:00 10/10/20 22:15 Chloride IV 0 mcg/min TITRATE PEPITO 0 mls/hr Titration Protocol 2 MCG/MIN Cefepime HCl 2 gm in 100 mls @ 200 mls/hr 10/12/20 22:00 10/17/20 21:46 Cefepime/Ns 2 Gm/100 Ml IV 10/21/20 22:29 200 mls/hr Q24H PEPITO Administration Protocol Levetiracetam 500 mg/ Dextrose 105 mls @ 400 mls/hr 10/13/20 18:00 10/18/20 05:51 IV 400 mls/hr Q12H PEPITO Administration Fentanyl Citrate 2,000 mcg in 100 mls @ 6.175 mls/hr 10/16/20 15:00 10/17/20 17:17 Fentanyl Drip Premix IV 1 mcg/kg/hr TITR PEPITO 6.175 mls/hr Administration Protocol 1 MCG/KG/HR Amino Acids/Electrolytes/Dextrose 2,016 mls @ 84 mls/hr 10/17/20 20:00 10/17/20 20:48 Tpn Adult IV 10/18/20 19:59 84 mls/hr DAILY@2000 [facility] Administration Protocol Metoclopramide HCl 10 mg 10/10/20 21:51 Metoclopramide 10 Mg/2 Ml Inj IV Q6H PRN Nausea And Vomiting Metoprolol Tartrate 5 mg 10/11/20 12:00 10/18/20 11:35 Metoprolol Tartrate 5 Mg/5 Ml Inj IV 5 mg Q6HR PEPITO Administration Multi-Ingred Cream/Lotion/Oil/Oint 1 applic 10/10/20 10:34 Mineral Oil/Petrolatum, White Ophth Oint 3.5 Gm OU Q4HR PRN Dry Eye(s) Ondansetron HCl 4 mg 10/10/20 21:51 Ondansetron 4 Mg/2 Ml Inj IV Q3H PRN Nausea And Vomiting Pantoprazole Sodium 40 mg 10/12/20 22:00 10/18/20 09:59 Pantoprazole 40 Mg Inj IV 40 mg BID PEPITO Administration Polyethylene Glycol 17 gm 10/17/20 10:00 10/18/20 09:59 Polyethylene Glycol 3350 17 Gm Powder PO 17 gm QDAY PEPITO Administration Scopolamine 1 each 10/17/20 10:00 10/17/20 10:05 Scopolamine Transdermal Patch 72 Hr TD 1 each Q3D PEPITO Administration Simple Syrup 15 ml 10/10/20 22:18 Simple Syrup 15 Ml FEEDTUBE PRN PRN Hypoglycemia Simple Syrup 30 ml 10/10/20 22:18 Simple Syrup 15 Ml FEEDTUBE PRN PRN Hypoglycemia Sodium Bicarbonate 325 mg 10/10/20 22:18 Sodium Bicarbonate 325 Mg Tab FEEDTUBE PRN PRN For Clogged Feeding Tube Sodium Chloride 10 ml 10/10/20 22:00 10/18/20 10:00 Sodium Chloride 0.9% 10 Ml Flush Syringe IV 10 ml BID PEPITO Administration Sodium Chloride 10 ml 10/10/20 21:51 Sodium Chloride 0.9% 10 Ml Flush Syringe IV PRN PRN LINE FLUSH
[2020-10-18] MEDS: hydrALAZINE 20 MG/1 ML INJ IV PRN (15:41)
[2020-10-18] MEDS: ACETAMINOPHEN 325 MG TAB PO PRN (15:41)
[2020-10-18] MEDS: FLUTICASONE PROPIONATE NASAL SPRAY 16 GM NS SCH ×2 (15:49→22:00)
--- NOTE | 2020-10-18 16:57 | Progress Note ---
Assessment and Plan Assessment and plan: -Infectious disease, CCM, GI, nephrology, cardiology consulted, patient recommendations -Antibiotic therapy -10/18 reculture (blood/sputum/nasal discharge and urinalysis) -Cefepime extended and vancomycin started -Continue antihypertensive regimen, titrate as needed -Trend CBC, BMP -Continue mechanical ventilation, wean as tolerated, VAP bundle -Avoid nephrotoxic medications, strict intake and output, renal ultrasound shows no obstruction -Trend LFTs -10/10 echocardiogram shows left internal systolic function normal, moderate concentric left ventricle hypertrophy, mild to side diastolic dysfunction, LVEF 55 to 60% with no pericardial effusion -Bilateral Doppler ultrasound negative for DVT/SVT which shows bilateral popliteal cysts GI/DVT prophylaxis: SCDs to bilateral lower extremities while in bed, PPI, Heparin subq Dispo: ICU The high probability of a clinically significant, sudden or life threatening deterioration of the [multi] system(s) required my full and direct attention, intervention and personal management. The aggregate critical care time was [35] minutes. This time is in addition to time spent performing reported procedures but includes the following: [x] Data Review and interpretation [x] Patient assessment and monitoring of vital signs [x] Documentation [x] Medication orders and management History Interval history: This is a 55-year-old male with hypertension, asthma, obesity in the emergency by presents the emergency department on 10/10 after receiving a Covid vaccine being found unresponsive in his car in the emergency room by with no pulse and ACLS protocol was initiated from his car to emergency room #21 where it was continued. Patient was intubated after ROSC was achieved and a central line was placed and the patient was initiated on pressors. In the emergency room patient seems to have seizure-like activity and then collapsed and was unresponsive with no palpable pulse and ACLS was again initiated patient with achievement of ROSC. Patient again coded with ACLS protocol in the CT room. Upon arrival to the ICU patient again coded and ROSC was achieved and he was placed on epinephrine, Lasix, heparin and sodium bicarbonate drip and sedated with propofol. An NG tube was placed, A-line was placed. Patient was admitted to the hospitalist service with consult to CCM, nephrology, infectious disease and cardiology. 10/11: Patient COVID-19 PCR is pending and he remains on mechanical ventilation, examination on assist control 400/30/12/0.95. Patient is scheduled for an echocardiogram and we will obtain bilateral lower extremity Doppler ultrasound given elevated D-dimer. Patient was supposed to have a CTA chest when he coded yesterday. We will begin trickle feeding. This morning patient was on a heparin drip and was noted to have bloody drainage from his NG tube. Heparin drip was discontinued. 10/12: Patient remains on propofol and Lasix drip at the time my examination and he is on assist control 400/25/12/0.60. Patient is hypokalemic this morning which was repleted. Nephrlogy discontinued Lasix drip and Diamox. Patient is hypertensive and has been started on hydralazine and beta-shital IV. He has been titrated off his vasopressors since yesterday. Vancomycin discontinued. Kwesi baker is currently on cefepime and azithromycin. 10/13: Sedation vacation attempted today and patient was not responsive to verbal or painful stimuli, does not track or focus or follow commands. This morning the patient has some respiratory alkalosis on ABG, hypernatremia and metabolic alkalosis on BMP. His kidney functions has improved slightly. Patient still has leukocytosis and infectious disease was like to continue antibiotic therapy. GI evaluated the patient yesterday and started the patient on PPI does not plan to scope at this time. At the time my examination patient assist-control 400/20/12/0.40 and sedated on propofol at 20. 4/2: GI has recommended a CT abdomen since there is increased output from OG tube and an MRI brain without contrast has been ordered per neurology recom mendations. EEG is pending and the patient has been started on Keppra per neurology.. Nutrition has been consulted for initiation of parenteral nutrition. Patient remains sedated with propofol and his hypernatremia, leukocytosis, acute kidney injury and metabolic alkalosis is improving. Patient has hypokalemia today which was repleted. At the time of my examination patient was on assist control 400/14/10/0.40 and CCM has dropped his rate to 12 and PEEP to 8. We have labs ordered for a.m. He was given a clonidine patch given persistent hypertension and he remains on D5 water per nephrology. 10/15: This morning patient was started to have a low-grade fever and he will continue antibiotic therapy per infectious disease. He will remove Tuttle catheter today and place a condom cath. Patient's renal function is worsening with a BUN/creatinine of 57/2.4 today and he has hyperphosphatemia at 5.2. This morning the time my examination patient is sedated on fentanyl and has TPN infusing. He is on assist control 400/12/8/0.35. Per GI we will start trial of tube feedings initiation has been reconsulted for orders. 10/18: Patient was febrile overnight and infectious disease has recultured (blood/sputum/right nostril culture) and sent in urinalysis. Cefepime was extended due to high fever and was started on vancomycin. Tube feeding is at goal and we will discontinue his parenteral nutrition. Patient is unable to obtain his MRI due to increased hypoxia and nasal secretions. He will be started on CPAP trials today. This time I examination patient was sedated on fentanyl and had PPN running at 42. His renal function tests have worsened and now has hyperchloremia. Hypernatremia has resolved. Sepsis Right-sided pneumonia NSTEMI type II Acute heart failure GI bleed Leukocytosis Hypochloremia Acute hypoxic respiratory failure Acute kidney injury Transaminitis HTN Obesity Hospitalist Physical - Constitutional Vitals: Temp Pulse Resp BP Pulse Ox 100.1 F H 97 H 17 249/124 96 10/18/20 16:00 10/18/20 15:41 10/18/20 13:16 10/18/20 15:41 10/18/20 15:09 General appearance: Present: no acute distress, well-nourished, other (Resting comfortably on mechanical ventilation) - EENT Eyes: Present: PERRL ( sluggish) ENT: other (Discharge of thick thick nasal discharge) - Neck Neck: Present: normal ROM - Respiratory Respiratory effort: normal Respiratory: bilateral: rhonchi - Cardiovascular Rhythm: regular Heart Sounds: Present: S1 & S2. Absent: systolic murmur, diastolic murmur - Extremities Extremities: no ischemia, pulses intact, pulses symmetrical, No edema, normal temperature, normal color Peripheral Pulses: within normal limits - Abdominal General gastrointestinal: soft, non-tender, non-distended, normal bowel sounds - Integumentary Integumentary: Present: warm, dry - Psychiatric Psychiatric: other (Sedated, spontaneous eye spontaneously opens eyes but does not follow commands/track/focus) - Neurologic Neurologic: other (Spontaneously opens eyes but does not follow any commands) HEART Score - HEART Score EKG: Non-specific Age: 45-65 Troponin: Troponin T 0.125 ng/mL (0.00-0.029) H* D 10/12/20 04:00 Troponin: 1-3x normal limit - Critical Actions Critical Actions: 4-6 pts:12-16.6% risk of adverse cardiac event. Should be admitted Results - Labs CBC & Chem 7: 10/18/20 03:27 10/18/20 03:27 Labs: Laboratory Last Values WBC 11.1 K/mm3 (4.5-11.0) H 10/14/20 04:46 RBC 4.12 M/mm3 (3.65-5.03) 10/14/20 04:46 Hgb 11.7 gm/dl (11.8-15.2) L 10/18/20 03:27 Hct 35.6 % (35.5-45.6) 10/18/20 03:27 MCV 91 fl (84-94) 10/14/20 04:46 MCH 30 pg (28-32) 10/14/20 04:46 MCHC 32 % (32-34) 10/14/20 04:46 RDW 15.3 % (13.2-15.2) H 10/14/20 04:46 Plt Count 225 K/mm3 (140-440) 10/18/20 03:27 Lymph % (Auto) 3.9 % (13.4-35.0) L 10/11/20 02:00 Love % (Auto) 3.0 % (0.0-7.3) 10/11/20 02:00 Eos % (Auto) 0.0 % (0.0-4.3) 10/11/20 02:00 Baso % (Auto) 0.1 % (0.0-1.8) 10/11/20 02:00 Lymph # (Auto) 0.7 K/mm3 (1.2-5.4) L 10/11/20 02:00 Love # (Auto) 0.5 K/mm3 (0.0-0.8) 10/11/20 02:00 Eos # (Auto) 0.0 K/mm3 (0.0-0.4) 10/11/20 02:00 Baso # (Auto) 0.0 K/mm3 (0.0-0.1) 10/11/20 02:00 Add Manual Diff Complete 10/10/20 18:18 Total Counted 100 10/10/20 18:18 Seg Neutrophils % 93.0 % (40.0-70.0) H 10/11/20 02:00 Seg Neuts % (Manual) 60.0 % (40.0-70.0) 10/10/20 18:18 Band Neutrophils % 27.0 % 10/10/20 18:18 Lymphocytes % (Manual) 4.0 % (13.4-35.0) L 10/10/20 18:18 Monocytes % (Manual) 9.0 % (0.0-7.3) H 10/10/20 18:18 Eosinophils % (Manual) 4.0 % (0.0-4.3) 10/10/20 10:48 Metamyelocytes % 1.0 % 10/10/20 10:48 Nucleated RBC % Not Reportable 10/10/20 18:18 Seg Neutrophils # 16.1 K/mm3 (1.8-7.7) H 10/11/20 02:00 Seg Neutrophils # Man 13.8 K/mm3 (1.8-7.7) H 10/10/20 18:18 Band Neutrophils # 6.2 K/mm3 10/10/20 18:18 Lymphocytes # (Manual) 0.9 K/mm3 (1.2-5.4) L 10/10/20 18:18 Abs React Lymphs (Man) 0.0 K/mm3 10/10/20 18:18 Monocytes # (Manual) 2.1 K/mm3 (0.0-0.8) H 10/10/20 18:18 Eosinophils # (Manual) 0.0 K/mm3 (0.0-0.4) 10/10/20 18:18 Basophils # (Manual) 0.0 K/mm3 (0.0-0.1) 10/10/20 18:18 Metamyelocytes # 0.0 K/mm3 10/10/20 18:18 Myelocytes # 0.0 K/mm3 10/10/20 18:18 Promyelocytes # 0.0 K/mm3 10/10/20 18:18 Blast Cells # 0.0 K/mm3 10/10/20 18:18 WBC Morphology Not Reportable 10/10/20 18:18 Hypersegmented Neuts Not Reportable 10/10/20 18:18 Hyposegmented Neuts Not Reportable 10/10/20 18:18 Hypogranular Neuts Not Reportable 10/10/20 18:18 Smudge Cells Not Reportable 10/10/20 18:18 Toxic Granulation Not Reportable 10/10/20 18:18 Toxic Vacuolation Not Reportable 10/10/20 18:18 Dohle Bodies Not Reportable 10/10/20 18:18 Pelger-Huet Anomaly Not Reportable 10/10/20 18:18 Dionicio Rods Not Reportable 10/10/20 18:18 Platelet Estimate Consistent w auto 10/10/20 18:18 Clumped Platelets Not Reportable 10/10/20 18:18 Plt Clumps, EDTA Not Reportable 10/10/20 18:18 Large Platelets Rare 10/10/20 18:18 Giant Platelets Rare 10/10/20 18:18 Platelet Satelliting Not Reportable 10/10/20 18:18 Plt Morphology Comment Not Reportable 10/10/20 18:18 RBC Morphology Not Reportable 10/10/20 18:18 Dimorphic RBCs Not Reportable 10/10/20 18:18 Polychromasia Not Reportable 10/10/20 18:18 Hypochromasia Not Reportable 10/10/20 18:18 Poikilocytosis Not Reportable 10/10/20 18:18 Anisocytosis Not Reportable 10/10/20 18:18 Microcytosis Not Reportable 10/10/20 18:18 Macrocytosis Not Reportable 10/10/20 18:18 Spherocytes Not Reportable 10/10/20 18:18 Pappenheimer Bodies Not Reportable 10/10/20 18:18 Sickle Cells Not Reportable 10/10/20 18:18 Target Cells Not Reportable 10/10/20 18:18 Tear Drop Cells Not Reportable 10/10/20 18:18 Ovalocytes Not Reportable 10/10/20 18:18 Helmet Cells Not Reportable 10/10/20 18:18 [place] Bodies Not Reportable 10/10/20 18:18 [place] Rings Not Reportable 10/10/20 18:18 Adelfo Cells Not Reportable 10/10/20 18:18 Bite Cells Not Reportable 10/10/20 18:18 Crenated Cell Not Reportable 10/10/20 18:18 Elliptocytes Not Reportable 10/10/20 18:18 Acanthocytes (Spur) Not Reportable 10/10/20 18:18 Rouleaux Not Reportable 10/10/20 18:18 Hemoglobin C Crystals Not Reportable 10/10/20 18:18 Schistocytes Not Reportable 10/10/20 18:18 Malaria parasites Not Reportable 10/10/20 18:18 Mauricio Bodies Not Reportable 10/10/20 18:18 Hem Pathologist Commnt No 10/10/20 18:18 PT 13.8 Sec. (12.2-14.9) 10/10/20 18:18 INR 1.07 (0.87-1.13) 10/10/20 18:18 APTT 26.9 Sec. (24.2-36.6) 10/10/20 18:18 D-Dimer 679.5 ng/mlDDU (0-234) H 10/10/20 10:48 Heparin Anti-Xa Level 0.22 U.I./ml (0.3-0.7) L 10/11/20 08:35 ABG pH 7.419 pH Units (7.350-7.450) 10/16/20 05:10 POC ABG pCO2 59.6 mmHg (32.0-48.0) H 10/14/20 03:45 ABG pCO2 55.5 mm Hg 10/16/20 05:10 POC ABG pO2 93.3 mmHg (83-108) 10/14/20 03:45 ABG pO2 104.5 mm Hg (80.0-90.0) H 10/16/20 05:10 POC ABG HCO3 40.3 10/14/20 03:45 ABG HCO3 35.1 mmol/L (20.0-26.0) H 10/16/20 05:10 ABG O2 Saturation 97.7 % (95.0-99.0) 10/16/20 05:10 ABG O2 Content 10.8 (0.0-44) 10/16/20 05:10 POC ABG Base Excess 13.8 10/14/20 03:45 ABG Base Excess 9.5 mmol/L (-2.0-3.0) H 10/16/20 05:10 ABG Hemoglobin 7.9 gm/dl (14.0-18.0) L 10/16/20 05:10 ABG Oxyhemoglobin 95.8 (94-98) 10/14/20 03:45 ABG Carboxyhemoglobin 1.9 % (0.0-5.0) 10/16/20 05:10 ABG Methemoglobin 0.5 % (0.0-1.5) 10/16/20 05:10 ABG Sodium 151.4 mmol/L (136.0-145.0) H 10/14/20 03:45 ABG Potassium 3.3 mmol/L (3.40-4.50) L 10/14/20 03:45 ABG Chloride 105.0 mmol/L (98-107) 10/14/20 03:45 ABG Glucose 138 mg/dL (65-95) H 10/14/20 03:45 VBG pH 6.870 (7.320-7.420) L* 10/10/20 10:48 Oxyhemoglobin 95.3 % (95.0-99.0) 10/16/20 05:10 Carboxyhemoglobin 1.6 (0.5-1.5) H 10/14/20 03:45 FiO2 35 % 10/16/20 05:10 FiO2 % 40 10/14/20 03:45 Sodium 141 mmol/L (137-145) 10/18/20 03:27 Potassium 4.0 mmol/L (3.6-5.0) 10/18/20 03:27 Chloride 97.6 mmol/L (98-107) L 10/18/20 03:27 Carbon Dioxide 30 mmol/L (22-30) 10/18/20 03:27 Anion Gap 17 mmol/L 10/18/20 03:27 BUN 90 mg/dL (9-20) H 10/18/20 03:27 Creatinine 3.3 mg/dL (0.8-1.3) H 10/18/20 03:27 Estimated GFR 24 ml/min 10/18/20 03:27 BUN/Creatinine Ratio 27 % 10/18/20 03:27 Glucose 146 mg/dL (75-100) H 10/18/20 03:27 POC Glucose 145 mg/dL (70-105) H 10/18/20 11:19 Hemoglobin A1c 6.0 % (4-6) 10/11/20 02:00 Lactic Acid 1.10 mmol/L (0.7-2.0) 10/13/20 04:52 Calcium 8.7 mg/dL (8.4-10.2) 10/18/20 03:27 Phosphorus 5.20 mg/dL (2.5-4.5) H D 10/17/20 03:32 Magnesium 2.30 mg/dL (1.7-2.3) 10/17/20 03:32 Ferritin 81.4 ng/mL (30.0-300.0) 10/10/20 10:48 Total Bilirubin 1.70 mg/dL (0.1-1.2) H 10/18/20 03:27 AST 37 units/L (5-40) 10/18/20 03:27 ALT 32 units/L (7-56) 10/18/20 03:27 Alkaline Phosphatase 97 units/L (35-129) 10/18/20 03:27 Ammonia 214.0 umol/L (25-60) H 10/10/20 10:46 Lactate Dehydrogenase 386 units/L (91-180) H 10/10/20 10:48 Total Creatine Kinase 1192 units/L (55-170) H 10/10/20 18:18 CK-MB (CK-2) 21.7 ng/mL (0.0-4.0) H 10/10/20 18:18 CK-MB (CK-2) Rel Index 1.8 (0-4) 10/10/20 18:18 Troponin T 0.125 ng/mL (0.00-0.029) H* D 10/12/20 04:00 C-Reactive Protein 0.90 mg/dL (0.00-1.30) 10/10/20 10:48 NT-Pro-B Natriuret Pep 1187 pg/mL (0-900) H 10/10/20 10:46 Total Protein 6.3 g/dL (6.3-8.2) 10/18/20 03:27 Albumin 3.1 g/dL (3.9-5) L 10/18/20 03:27 Albumin/Globulin Ratio 1.0 % 10/18/20 03:27 Triglycerides 278 mg/dL (2-149) H 10/13/20 04:52 Cholesterol 138 mg/dL (50-199) 10/10/20 18:18 LDL Cholesterol Direct 76 mg/dL (50-130) 10/10/20 18:18 HDL Cholesterol 49 mg/dL (40-59) 10/10/20 18:18 Cholesterol/HDL Ratio 2.81 % 10/10/20 18:18 Procalcitonin 4.98 ng/mL (<0.15) 10/15/20 04:12 TSH 6.260 mlU/mL (0.270-4.200) H 10/10/20 10:46 Arterial Blood Glucose 138 mg/dL (65-95) H 10/14/20 03:45 Arterial Blood Ionized Calcium 4.5 mg/dL (4.6-5.3) L 10/14/20 03:45 Urine Color Angelica (Yellow) 10/18/20 Unknown Urine Turbidity Cloudy (Clear) 10/18/20 Unknown Urine pH 5.0 (5.0-7.0) 10/18/20 Unknown Ur Specific [place] 1.017 (1.003-1.030) 10/18/20 Unknown Urine Protein 100 mg/dl mg/dL (Negative) 10/18/20 Unknown Urine Glucose (UA) Neg mg/dL (Negative) 10/18/20 Unknown Urine Ketones Neg mg/dL (Negative) 10/18/20 Unknown Urine Blood Lg (Negative) 10/18/20 Unknown Urine Nitrite Neg (Negative) 10/18/20 Unknown Urine Bilirubin Neg (Negative) 10/18/20 Unknown Urine Urobilinogen 4.0 mg/dL (<2.0) 10/18/20 Unknown Ur Leukocyte Esterase Neg (Negative) 10/18/20 Unknown Urine WBC (Auto) 115.0 /HPF (0.0-6.0) H 10/18/20 Unknown Urine RBC (Auto) 98.0 /HPF (0.0-6.0) 10/18/20 Unknown U Epithel Cells (Auto) 2.0 /HPF (0-13.0) 10/18/20 Unknown Urine WBC Clumps 3+ /HPF 10/18/20 Unknown Urine Mucus Few /HPF 10/11/20 13:30 Urine Eosinophils None seen (None Seen) 10/11/20 13:30 Urine Creatinine 80.5 mg/dL (0.1-20.0) H 10/11/20 13:30 Urine Sodium 110 mmol/L 10/11/20 13:30 Random Vancomycin 4.0 ug/mL (0-40.0) 10/18/20 11:47 Urine Opiates Screen Negative 10/10/20 10:50 Urine Methadone Screen Negative 10/10/20 10:50 Ur Barbiturates Screen Negative 10/10/20 10:50 Ur Phencyclidine Scrn Negative 10/10/20 10:50 Ur Amphetamines Screen Negative 10/10/20 10:50 U Benzodiazepines Scrn Negative 10/10/20 10:50 Urine Cocaine Screen Negative 10/10/20 10:50 U Marijuana (THC) Screen Positive 10/10/20 10:50 Drugs of Abuse Note Disclamer 10/10/20 10:50 Plasma/Serum Alcohol < 0.01 % (0-0.07) 10/10/20 10:48 Coronavirus (PCR) Negative (Negative) 10/11/20 Unknown Blood Type AB POSITIVE 10/10/20 10:48 Antibody Screen Negative 10/10/20 10:48 Microbiology: Microbiology 10/18/20 11:00 Peripheral/Venous Blood Culture - Preliminary Culture in Progress 10/18/20 11:00 Peripheral/Venous Blood Culture - Preliminary Culture in Progress Tuttle/IV: Voiding Method Indwelling Catheter Active Medications - Current Medications Current Medications: Generic Name Dose Route Start Last Admin Trade Name Freq PRN Reason Stop Dose Admin Acetaminophen 650 mg 10/10/20 21:51 10/18/20 15:41 Acetaminophen 325 Mg Tab PO 650 mg Q4H PRN Administration Pain MILD(1-3)/Fever >100.5/SALVADOR Acetaminophen 650 mg 10/11/20 11:24 10/17/20 17:16 Acetaminophen 650 Mg Rect Supp MI 650 mg Q6H PRN Administration Fever >101 Albuterol 2.5 mg 10/11/20 13:12 Albuterol 2.5 Mg/3 Ml Nebu IH Q6HRT PRN Shortness Of Breath Lipase/Protease/Amylase 1 each 10/10/20 22:18 Lipase 10,500/Protease 25,000/Amylase 43,750 (Units) Dr Santana FEEDTUBE PRN PRN For Clogged Feeding Tube Clonidine HCl 0.3 mg 10/14/20 15:00 04/02/21 16:00 Clonidine Tts 0.3 Mg/24 Hr Patch TD 0.3 mg Fr PEPITO Administration Docusate Sodium 100 mg 10/16/20 22:00 10/18/20 09:59 Docusate Sodium 100 Mg/10 Ml Oral Liqd PO 100 mg BID PEPITO Administration Fentanyl 50 mcg 10/16/20 14:10 Fentanyl 100 Mcg/2 Ml Inj IV Q10MIN PRN ANALGESIA Fluticasone Propionate 50 mcg 10/18/20 14:00 10/18/20 15:49 Fluticasone Propionate Nasal [place] 16 Gm NS 50 mcg BID PEPITO Administration Glycopyrrolate 0.2 mg 10/16/20 15:00 10/18/20 15:41 Glycopyrrolate 0.4 Mg/2 Ml Inj IV 10/19/20 14:59 0.2 mg Q8H PEPITO Administration Heparin Sodium (Porcine) 5,000 unit 10/11/20 22:00 10/18/20 10:00 Heparin 5,000 Unit/1 Ml Vial SUB-Q 5,000 unit Q12HR PEPITO Administration Hydralazine HCl 5 mg 10/15/20 20:25 10/18/20 15:41 Hydralazine 20 Mg/1 Ml Inj IV 5 mg Q6H PRN Administration Hypertension Hydromorphone HCl 0.5 mg 10/10/20 21:51 10/15/20 14:45 Hydromorphone 1 Mg/1 Ml Inj IV 0.5 mg Q3H PRN Administration Pain , Severe (7-10) Hydrophilic Ointment 1 applic 10/10/20 10:34 Lip Therapy Vaseline TP Q2HR PRN Dry Lips Propofol 1,000 mg in 100 mls @ 4.23 mls/hr 10/10/20 12:00 10/17/20 00:36 Diprivan 10 Mg/Ml IV 0 mcg/kg/min TITR PEPITO 0 mls/hr Titration Protocol 5 MCG/KG/MIN Nitroglycerin/Dextrose 50 mg in 250 mls @ 3 mls/hr 10/10/20 13:00 10/10/20 13:17 Tridil Drip 50mg/250ml IV 0 mcg/min TITR PEPITO 0 mls/hr Titration Protocol 10 MCG/MIN Norepinephrine 8 mg/ Sodium 250 mls @ 3.75 mls/hr 10/10/20 14:00 10/10/20 22:15 Chloride IV 0 mcg/min TITRATE PEPITO 0 mls/hr Titration Protocol 2 MCG/MIN Cefepime HCl 2 gm in 100 mls @ 200 mls/hr 10/12/20 22:00 10/17/20 21:46 Cefepime/Ns 2 Gm/100 Ml IV 10/21/20 22:29 200 mls/hr Q24H PEPITO Administration Protocol Levetiracetam 500 mg/ Dextrose 105 mls @ 400 mls/hr 10/13/20 18:00 10/18/20 05:51 IV 400 mls/hr Q12H PEPITO Administration Fentanyl Citrate 2,000 mcg in 100 mls @ 6.175 mls/hr 10/16/20 15:00 10/17/20 17:17 Fentanyl Drip Premix IV 1 mcg/kg/hr TITR PEPITO 6.175 mls/hr Administration Protocol 1 MCG/KG/HR Amino Acids/Electrolytes/Dextrose 2,016 mls @ 84 mls/hr 10/17/20 20:00 10/17/20 20:48 Tpn Adult IV 10/18/20 19:59 84 mls/hr DAILY@2000 PEPITO Administration Protocol Metoclopramide HCl 10 mg 10/10/20 21:51 Metoclopramide 10 Mg/2 Ml Inj IV Q6H PRN Nausea And Vomiting Metoprolol Tartrate 5 mg 10/11/20 12:00 10/18/20 11:35 Metoprolol Tartrate 5 Mg/5 Ml Inj IV 5 mg Q6HR PEPITO Administration Multi-Ingred Cream/Lotion/Oil/Oint 1 applic 10/10/20 10:34 Mineral Oil/Petrolatum, White Ophth Oint 3.5 Gm OU Q4HR PRN Dry Eye(s) Ondansetron HCl 4 mg 10/10/20 21:51 Ondansetron 4 Mg/2 Ml Inj IV Q3H PRN Nausea And Vomiting Pantoprazole Sodium 40 mg 10/12/20 22:00 10/18/20 09:59 Pantoprazole 40 Mg Inj IV 40 mg BID PEPITO Administration Polyethylene Glycol 17 gm 10/17/20 10:00 10/18/20 09:59 Polyethylene Glycol 3350 17 Gm Powder PO 17 gm QDAY PEPITO Administration Scopolamine 1 each 10/17/20 10:00 10/17/20 10:05 Scopolamine Transdermal Patch 72 Hr TD 1 each Q3D PEPITO Administration Simple Syrup 15 ml 10/10/20 22:18 Simple Syrup 15 Ml FEEDTUBE PRN PRN Hypoglycemia Simple Syrup 30 ml 10/10/20 22:18 Simple Syrup 15 Ml FEEDTUBE PRN PRN Hypoglycemia Sodium Bicarbonate 325 mg 10/10/20 22:18 Sodium Bicarbonate 325 Mg Tab FEEDTUBE PRN PRN For Clogged Feeding Tube Sodium Chloride 10 ml 10/10/20 22:00 10/18/20 10:00 Sodium Chloride 0.9% 10 Ml Flush Syringe IV 10 ml BID PEPITO Administration Sodium Chloride 10 ml 10/10/20 21:51 Sodium Chloride 0.9% 10 Ml Flush Syringe IV PRN PRN LINE FLUSH Nutrition/Malnutrition Assess - Dietary Evaluation Nutrition/Malnutrition Findings: Nutrition Notes Start: 10/11/20 08:38 Freq: Status: Active Protocol: Document 10/18/20 12:54 CW (Rec: 10/18/20 13:04 CW [email or web address]) Nutrition Notes Current Diagnosis Acute Kidney Injury,Sepsis, Hypertension,Heart Failure, Respiratory Failure Other Pertinent Diagnosis GIB, pneu, Covid 19, VT, pulmonary edema Current Diet CPN at 84 ml/hr+ TF Nepro at 45 ml/hr Labs/Tests BUN 90 Cr 3.3 BG 146 Pertinent Medications Miralax Colace Height 6 ft Weight 128.1 kg Ava Body Weight (kg) 80.90 BMI 38.2 Weight change and time frame Weight gain noted, will monitor Weight Status Morbidly Obese Subjective/Other Information Day 4 CPN. Pt is tolerating both CPN and TF well. CPN to be d/c'd today after completion of bag. TF of Nepro running at 35 ml/hr Percent of energy/protein needs met: 107%/(927 kcal from TF and 995 kcal from CPN) 79% Burn Absent Trauma Absent Current % PO Negligible Minimum of two criteria No physical signs of malnutrition #2 Nutrition Diagnosis Inadequate energy intake As Evidenced by Signs and Symptoms TF running at 45 ml/hr with CPN running at 84 ml/hr Diagnosis Progress(for reassessment Improved documentation) #1 Nutrition Diagnosis Inadequate oral intake Diagnosis Progress(for reassessment Continues documentation) Is patient on ventilator? Yes Is Patient Ambulatory and/or Out of Bed No REE-([facility]. Jeor-confined to bed) 2600.352 Kcal/Kg value to use for calculation 14 Approximate Energy Requirements Using 1793 kcal/Kg Calculation Used for Recommendations Kcal/kg Additional Notes protein needs: >162g (>2 kgIBW ) fluid needs: 1 ml/kcal or per MD Nutrition Intervention Change Diet Order: D/C CPN Continue TF Nutrition Support: Nepro at 45 ml/hr with a free water flush of 200 ml q4h Kcal 1,944 Protein (gm) 87 Fluid (mL) 785 Goal #1 TF at goal and well tolerated Goal #2 Meet at least 75% of kcal needs via TF Anticipated Discharge Needs: unable to determine at this time Follow-Up By: 10/21/20 Additional Comments F/U TF at goal and tolerance
[2020-10-18] MEDS: fentaNYL DRIP Premix 2,000 MCG/100 ML BAG IV SCH (21:59)
[2020-10-18] MEDS: CEFEPIME/NS 2 GM/100 ML 2 GM/100 ML BAG IV SCH (22:00)
[2020-10-19 05:15] LABS: Basophils # (Auto) 0.1 K/mm3 (0.0-0.1); Basophils % (Auto) 0.3 % (0.0-1.8); Eosinophils # (Auto) 0.2 K/mm3 (0.0-0.4); Eosinophils % (Auto) 1.6 % (0.0-4.3); Hematocrit 34.4 % (35.5-45.6); Hemoglobin 11.1 gm/dl (11.8-15.2); Lymphocytes # (Auto) 0.6 K/mm3 (1.2-5.4); Lymphocytes % (Auto) 4.2 % (13.4-35.0); Mean Corpuscular HGB Conc 32 % (32-34); Mean Corpuscular Volume 89 fl (84-94); Monocytes # (Auto) 1.8 K/mm3 (0.0-0.8); Monocytes % (Auto) 11.9 % (0.0-7.3); Platelet Count 230 K/mm3 (140-440); Red Blood Count 3.87 M/mm3 (3.65-5.03); Red Cell Distribution Width 14.5 % (13.2-15.2)
[2020-10-19] MEDS: METOPROLOL TARTRATE 5 MG/5 ML INJ IV SCH ×2 (05:55→11:06)
[2020-10-19] MEDS: levETIRAcetam 500 MG in DEXTROSE 5% IN WATER 100 ML IV SCH ×2 (05:55→18:05)
[2020-10-19] MEDS: GLYCOPYRROLATE 0.4 MG/2 ML INJ IV SCH (06:00)
[2020-10-19] MEDS: ACETAMINOPHEN 325 MG TAB PO PRN (08:33)
[2020-10-19] MEDS: fentaNYL DRIP Premix 2,000 MCG/100 ML BAG IV SCH ×2 (08:35→22:37)
--- NOTE | 2020-10-19 09:54 | Progress Note ---
Assessment and Plan Cultures: SARS CoV2 PCR: negative. 10/10/2020 blood culture: No growth 10/10/2020 ET aspirate culture: Usual respiratory antonio 10/11/2020 urine culture: no growth 10/18/2020 blood culture: No growth today A/P: 55-year-old male with hypertension, asthma, obesity came into the emergency room after receiving the Covid vaccine and passing out in the car at the emergency room bay. Patient was found to be unresponsive with no pulse, ACLS was initiated: #Sepsis, likely secondary to pneumonia. COVID negative. Remains with fever, leukocytosis is up, noted right nostril copious purulunce on 10/18. ?sinusitis +/- UTI #Right-sided pneumonia: Possible aspiration during ACLS. Procalcitonin low. Chest x-ray with persistent lung opacities. #Acute hypoxic respiratory failure: On mechanical ventilation. #MOE: Renally dose antibiotics. Worsening. Renal on board. #Elevated LFTs: Likely from sepsis #Urine tox screen positive for THC #Possible sinusitis from endotracheal intubation and mechanical ventilation: Initial CT head did not reveal any evidence of sinusitis. Patient is already on antibiotics. #Acute encephalopathy: neurology on board, evaluation in process. #UTI: Urine culture no growth. Repeat UA with worseing pyuria Recs: -F/u Repeat blood cultures, urin cx, respiratory cultures, right nostril culture -Monitor fever -Continue cefepime D8 of 10- extended due to high fever -Continue vancomycin with PK consult -Check MRSA PCR -pending will follow Kylah Carson MD [facility] ([facility]) Office [phone] Subjective Date of service: 10/19/20 Principal diagnosis: Cardiac arrest; Septic Shock; Ac. hypoxemic & hypercapnic resp failure; MOE Interval history: Patient remains intubated, on CPAP, noted temperature 100.6 now Remains sedated on fentanyl Objective - Exam Narrative Exam: General appearance: Sedated intubated Eyes: anicteric sclerae, moist conjunctivae; no lid-lag; PERRLA HENT: Normocephalic, Atraumatic; normal external ears, nares open with right nostril thick purulence, oropharynx endotracheal tube in place Neck: supple, tracheal midline, no JVD Lungs: Clear to auscultation bilaterally CV: RRR no murmur Abdomen: Soft, nontender Extremities: no edema, no cyanosis Skin: No rash. Psych: Sedated Neuro: Sedated - Constitutional Vitals: Vital Signs Temp Pulse Resp BP Pulse Ox 100.2 F H 95 H 15 144/87 98 10/19/20 07:26 10/19/20 09:00 10/19/20 09:00 10/19/20 09:00 10/19/20 09:00 Temperature -Last 24 Hours Temperature 100.2 F Temperature 99.6 F Temperature 99.7 F Temperature 98.9 F Temperature 99.0 F Temperature 100.1 F Temperature 99.2 F - Labs CBC & Chem 7: 10/19/20 04:55 10/19/20 04:55 Labs: Abnormal lab results 10/18/20 10/18/20 10/18/20 Range/Units 11:19 17:15 23:16 WBC (4.5-11.0) K/mm3 Hgb (11.8-15.2) gm/dl Hct (35.5-45.6) % Lymph % (Auto) (13.4-35.0) % [place] % (Auto) (0.0-7.3) % Lymph # (Auto) (1.2-5.4) K/mm3 [place] # (Auto) (0.0-0.8) K/mm3 Seg Neutrophils % (40.0-70.0) % Seg Neutrophils # (1.8-7.7) K/mm3 BUN (9-20) mg/dL Creatinine (0.8-1.3) mg/dL Glucose (75-100) mg/dL POC Glucose 145 H 151 H 123 H (70-105) mg/dL Urine WBC (Auto) (0.0-6.0) /HPF 10/18/20 10/19/20 10/19/20 Range/Units Unknown 04:55 04:55 WBC 15.1 H (4.5-11.0) K/mm3 Hgb 11.1 L (11.8-15.2) gm/dl Hct 34.4 L (35.5-45.6) % Lymph % (Auto) 4.2 L (13.4-35.0) % [place] % (Auto) 11.9 H (0.0-7.3) % Lymph # (Auto) 0.6 L (1.2-5.4) K/mm3 [place] # (Auto) 1.8 H (0.0-0.8) K/mm3 Seg Neutrophils % 82.0 H (40.0-70.0) % Seg Neutrophils # 12.4 H (1.8-7.7) K/mm3 BUN 104 H (9-20) mg/dL Creatinine 3.1 H (0.8-1.3) mg/dL Glucose 139 H (75-100) mg/dL POC Glucose (70-105) mg/dL Urine WBC (Auto) 115.0 H (0.0-6.0) /HPF
--- NOTE | 2020-10-19 09:55 | Progress Note ---
Assessment and Plan 1. Acute kidney injury: Vasomotor MOE in the setting of Cardiac arrest and shock. Renal US negative for hydro. Monitor renal function. BUN level is incresing. Creatinine level is slightly better today. Multiple bladder scan showed no retention. Avoid nephrotoxic agents. Meds dosage based on GFR. 2. FEN: Volume overload, improved, monitor. Hypernatremia, sodium level is better, monitor. Metabolic alkalosis, improving, monitor. On TPN. Monitor lytes and volume status. 3. Acute hypoxic respiratory failure, POA: 2/2 PNA and CHF. COVID test negative. Intubated on vent. 4. Sepsis, POA: 2/2 PNA. Abx. 5. NSTEMI type II: Post cardiac arrest EKG showed no acute ischemic changes. Followed by Cards. 6. Acute CHF: Echo showed Normal EF and mild DD. 7. S/p Cardiac arrest. 8. GI bleed: Followed by GI. 9. Elevated Transaminases: Trend. 10. HTN: Monitor. Subjective: Patient was seen and examined at the bedside. Objective: General appearance: well-developed, appears stated age, intubated, on vent HEENT: ATNC, [place] Neck: trachea midline Respiratory: ctab Heart: regular, S1S2, no murmur Gastrointestinal: soft, normoactive bowel sounds, not tender Integumentary: no rash, warm and dry Ext: no edema Neurologic: not responding Musculoskeletal: no obvious deformity : condom catheter Subjective Date of service: 10/19/20 Principal diagnosis: Cardiac arrest; Septic Shock; Ac. hypoxemic & hypercapnic resp failure; MOE Objective - Vital Signs Vital signs: Vital Signs - 12hr 10/18/20 10/18/20 10/18/20 22:00 22:16 22:30 Temperature Pulse Rate 91 H 105 H 108 H Pulse Rate [ From Monitor] Respiratory 16 14 14 Rate Blood Pressure 127/48 132/96 132/96 O2 Sat by Pulse 99 97 97 Oximetry 10/18/20 10/18/20 10/18/20 22:46 23:00 23:02 Temperature Pulse Rate 104 H 102 H 108 H Pulse Rate [ From Monitor] Respiratory 13 12 12 Rate Blood Pressure 164/103 154/52 154/52 O2 Sat by Pulse 96 97 96 Oximetry 10/18/20 10/18/20 10/18/20 23:16 23:25 23:30 Temperature Pulse Rate 95 H 94 H 94 H Pulse Rate [ From Monitor] Respiratory 11 L 11 L Rate Blood Pressure 131/64 131/64 131/64 O2 Sat by Pulse 97 97 98 Oximetry 10/18/20 10/18/20 10/19/20 23:37 23:46 00:00 Temperature 98.9 F Pulse Rate 101 H 77 87 Pulse Rate [ 90 From Monitor] Respiratory 11 L 10 L Rate Blood Pressure 253/53 110/47 117/55 O2 Sat by Pulse 97 98 Oximetry 10/19/20 10/19/20 10/19/20 00:15 00:30 00:46 Temperature Pulse Rate 83 81 87 Pulse Rate [ From Monitor] Respiratory 10 L 12 11 L Rate Blood Pressure 122/50 128/60 150/90 O2 Sat by Pulse 98 98 98 Oximetry 10/19/20 10/19/20 10/19/20 01:00 01:15 01:30 Temperature Pulse Rate 85 90 87 Pulse Rate [ From Monitor] Respiratory 8 L 8 L 8 L Rate Blood Pressure 145/80 143/87 126/79 O2 Sat by Pulse 97 98 98 Oximetry 10/19/20 10/19/20 10/19/20 01:45 02:00 02:15 Temperature Pulse Rate 94 H 88 86 Pulse Rate [ From Monitor] Respiratory 8 L 10 L 8 L Rate Blood Pressure 125/81 127/79 118/76 O2 Sat by Pulse 98 97 97 Oximetry 10/19/20 10/19/20 10/19/20 02:30 02:46 03:00 Temperature Pulse Rate 93 H 95 H 96 H Pulse Rate [ From Monitor] Respiratory 8 L 8 L 8 L Rate Blood Pressure 113/80 133/82 133/82 O2 Sat by Pulse 98 98 98 Oximetry 10/19/20 10/19/20 10/19/20 03:15 03:30 03:46 Temperature Pulse Rate 94 H 95 H 96 H Pulse Rate [ From Monitor] Respiratory 10 L 11 L 9 L Rate Blood Pressure 144/72 141/66 127/70 O2 Sat by Pulse 99 96 97 Oximetry 10/19/20 10/19/20 10/19/20 04:00 04:15 04:30 Temperature 99.6 F Pulse Rate 99 H 95 H 98 H Pulse Rate [ 90 From Monitor] Respiratory 17 9 L 10 L Rate Blood Pressure 121/72 129/79 129/79 O2 Sat by Pulse 98 96 97 Oximetry 10/19/20 10/19/20 10/19/20 04:46 04:55 05:00 Temperature Pulse Rate 94 H 102 H 95 H Pulse Rate [ From Monitor] Respiratory 8 L 10 L Rate Blood Pressure 154/73 154/73 154/73 O2 Sat by Pulse 96 96 97 Oximetry 10/19/20 10/19/20 10/19/20 05:15 05:30 05:45 Temperature Pulse Rate 99 H 99 H 106 H Pulse Rate [ From Monitor] Respiratory 13 12 10 L Rate Blood Pressure 138/86 138/86 121/60 O2 Sat by Pulse 97 97 98 Oximetry 10/19/20 10/19/20 10/19/20 05:55 06:00 06:16 Temperature Pulse Rate 106 H 87 93 H Pulse Rate [ From Monitor] Respiratory 11 L 10 L Rate Blood Pressure 121/60 121/60 116/50 O2 Sat by Pulse 98 98 Oximetry 10/19/20 10/19/20 10/19/20 06:30 06:46 07:00 Temperature Pulse Rate 95 H 92 H 94 H Pulse Rate [ From Monitor] Respiratory 10 L 11 L 12 Rate Blood Pressure 111/54 150/70 154/76 O2 Sat by Pulse 97 99 99 Oximetry 10/19/20 10/19/20 10/19/20 07:16 07:26 07:30 Temperature 100.2 F H Pulse Rate 100 H 95 H Pulse Rate [ From Monitor] Respiratory 12 13 Rate Blood Pressure 143/78 143/78 O2 Sat by Pulse 98 98 Oximetry 10/19/20 10/19/20 10/19/20 07:45 08:00 08:15 Temperature Pulse Rate 94 H 96 H 90 Pulse Rate [ 97 H From Monitor] Respiratory 12 10 L 11 L Rate Blood Pressure 125/66 125/63 117/50 O2 Sat by Pulse 99 98 98 Oximetry 10/19/20 10/19/20 10/19/20 08:24 08:30 08:46 Temperature Pulse Rate 95 H 95 H 94 H Pulse Rate [ From Monitor] Respiratory 11 L 13 14 Rate Blood Pressure 117/50 162/75 173/80 O2 Sat by Pulse 99 98 99 Oximetry 10/19/20 09:00 Temperature Pulse Rate 95 H Pulse Rate [ From Monitor] Respiratory 15 Rate Blood Pressure 144/87 O2 Sat by Pulse 98 Oximetry - Lab 10/19/20 04:55 10/19/20 04:55 Most recent lab results ABG pH 7.419 pH Units (7.350-7.450) 10/16/20 05:10 ABG pCO2 55.5 mm Hg 10/16/20 05:10 ABG pO2 104.5 mm Hg (80.0-90.0) H 10/16/20 05:10 ABG HCO3 35.1 mmol/L (20.0-26.0) H 10/16/20 05:10 ABG O2 Saturation 97.7 % (95.0-99.0) 10/16/20 05:10 Calcium 9.0 mg/dL (8.4-10.2) 10/19/20 04:55 Phosphorus 5.20 mg/dL (2.5-4.5) H D 10/17/20 03:32 Magnesium 2.30 mg/dL (1.7-2.3) 10/17/20 03:32 Urine Creatinine 80.5 mg/dL (0.1-20.0) H 10/11/20 13:30 Urine Sodium 110 mmol/L 10/11/20 13:30 Medications & Allergies - Medications Allergies/Adverse Reactions: Allergies No Known Allergies Allergy (Unverified 07/06/13 15:19) Home Medications: Home Medications Medication Instructions Recorded Confirmed Last Taken Type Albuterol Sulfate [Ventolin HFA] 2 puff IH Q4H PRN #1 hfa.aer.ad 07/06/13 Unknown Rx Prednisone 40 mg PO QDAY #8 tablet 07/06/13 Unknown Rx Albuterol Mdi (or & Nicu Only) 2 puff IH Q4H PRN #1 inha 07/07/13 Unknown Rx [ProAir HFA Inhaler] Azithromycin [Zithromax Z-KYLE] 500 mg PO QDAY #5 tab 07/07/13 Unknown Rx HYDROcodone/APAP 5-325 [[place] 2 each PO Q6H PRN #30 tablet 07/07/13 Unknown Rx 5-325 mg TAB] predniSONE [Deltasone] 40 mg PO QDAY #10 tablet 07/07/13 Unknown Rx Active Medications: Generic Name Dose Route Start Last Admin Trade Name Freq PRN Reason Stop Dose Admin Acetaminophen 650 mg 10/10/20 21:51 10/19/20 08:33 Acetaminophen 325 Mg Tab PO 650 mg Q4H PRN Administration Pain MILD(1-3)/Fever >100.5/SALVADOR Acetaminophen 650 mg 10/11/20 11:24 10/17/20 17:16 Acetaminophen 650 Mg Rect Supp MA 650 mg Q6H PRN Administration Fever >101 Albuterol 2.5 mg 10/11/20 13:12 Albuterol 2.5 Mg/3 Ml Nebu IH Q6HRT PRN Shortness Of Breath Lipase/Protease/Amylase 1 each 10/10/20 22:18 Lipase 10,500/Protease 25,000/Amylase 43,750 (Units) Dr Santana FEEDTUBE PRN PRN For Clogged Feeding Tube Clonidine HCl 0.3 mg 10/14/20 15:00 10/14/20 16:00 Clonidine Tts 0.3 Mg/24 Hr Patch TD 0.3 mg Fr PEPITO Administration Docusate Sodium 100 mg 10/16/20 22:00 10/18/20 22:00 Docusate Sodium 100 Mg/10 Ml Oral Liqd PO 100 mg BID PEPITO Administration Fentanyl 50 mcg 10/16/20 14:10 Fentanyl 100 Mcg/2 Ml Inj IV Q10MIN PRN ANALGESIA Fluticasone Propionate 50 mcg 10/18/20 14:00 10/18/20 22:00 Fluticasone Propionate Nasal [place] 16 Gm NS 50 mcg BID PEPITO Administration Glycopyrrolate 0.2 mg 10/16/20 15:00 10/19/20 06:00 Glycopyrrolate 0.4 Mg/2 Ml Inj IV 10/19/20 14:59 0.2 mg Q8H PEPITO Administration Heparin Sodium (Porcine) 5,000 unit 10/11/20 22:00 10/18/20 22:16 Heparin 5,000 Unit/1 Ml Vial SUB-Q 5,000 unit Q12HR PEPITO Administration Hydralazine HCl 5 mg 10/15/20 20:25 10/18/20 15:41 Hydralazine 20 Mg/1 Ml Inj IV 5 mg Q6H PRN Administration Hypertension Hydromorphone HCl 0.5 mg 10/10/20 21:51 10/15/20 14:45 Hydromorphone 1 Mg/1 Ml Inj IV 0.5 mg Q3H PRN Administration Pain , Severe (7-10) Hydrophilic Ointment 1 applic 10/10/20 10:34 Lip Therapy Vaseline TP Q2HR PRN Dry Lips Propofol 1,000 mg in 100 mls @ 4.23 mls/hr 10/10/20 12:00 10/17/20 00:36 Diprivan 10 Mg/Ml IV 0 mcg/kg/min TITR PEPITO 0 mls/hr Titration Protocol 5 MCG/KG/MIN Nitroglycerin/Dextrose 50 mg in 250 mls @ 3 mls/hr 10/10/20 13:00 10/10/20 13:17 Tridil Drip 50mg/250ml IV 0 mcg/min TITR PEPITO 0 mls/hr Titration Protocol 10 MCG/MIN Norepinephrine 8 mg/ Sodium 250 mls @ 3.75 mls/hr 10/10/20 14:00 10/10/20 22:15 Chloride IV 0 mcg/min TITRATE PEPITO 0 mls/hr Titration Protocol 2 MCG/MIN Cefepime HCl 2 gm in 100 mls @ 200 mls/hr 10/12/20 22:00 10/18/20 22:00 Cefepime/Ns 2 Gm/100 Ml IV 10/21/20 22:29 200 mls/hr Q24H PEPITO Administration Protocol Levetiracetam 500 mg/ Dextrose 105 mls @ 400 mls/hr 10/13/20 18:00 10/19/20 05:55 IV 400 mls/hr Q12H PEPITO Administration Fentanyl Citrate 2,000 mcg in 100 mls @ 6.175 mls/hr 10/16/20 15:00 10/19/20 08:35 Fentanyl Drip Premix IV 1 mcg/kg/hr TITR PEPITO 6.175 mls/hr Administration Protocol 1 MCG/KG/HR Metoclopramide HCl 10 mg 10/10/20 21:51 Metoclopramide 10 Mg/2 Ml Inj IV Q6H PRN Nausea And Vomiting Metoprolol Tartrate 5 mg 10/11/20 12:00 10/19/20 05:55 Metoprolol Tartrate 5 Mg/5 Ml Inj IV 5 mg Q6HR PEPITO Administration Multi-Ingred Cream/Lotion/Oil/Oint 1 applic 10/10/20 10:34 Mineral Oil/Petrolatum, White Ophth Oint 3.5 Gm OU Q4HR PRN Dry Eye(s) Ondansetron HCl 4 mg 10/10/20 21:51 Ondansetron 4 Mg/2 Ml Inj IV Q3H PRN Nausea And Vomiting Pantoprazole Sodium 40 mg 10/12/20 22:00 10/18/20 22:00 Pantoprazole 40 Mg Inj IV 40 mg BID PEPITO Administration Polyethylene Glycol 17 gm 10/17/20 10:00 10/18/20 09:59 Polyethylene Glycol 3350 17 Gm Powder PO 17 gm QDAY PEPITO Administration Scopolamine 1 each 10/17/20 10:00 10/17/20 10:05 Scopolamine Transdermal Patch 72 Hr TD 1 each Q3D PEPITO Administration Simple Syrup 15 ml 10/10/20 22:18 Simple Syrup 15 Ml FEEDTUBE PRN PRN Hypoglycemia Simple Syrup 30 ml 10/10/20 22:18 Simple Syrup 15 Ml FEEDTUBE PRN PRN Hypoglycemia Sodium Bicarbonate 325 mg 10/10/20 22:18 Sodium Bicarbonate 325 Mg Tab FEEDTUBE PRN PRN For Clogged Feeding Tube Sodium Chloride 10 ml 10/10/20 22:00 10/18/20 22:01 Sodium Chloride 0.9% 10 Ml Flush Syringe IV 10 ml BID PEPITO Administration Sodium Chloride 10 ml 10/10/20 21:51 Sodium Chloride 0.9% 10 Ml Flush Syringe IV PRN PRN LINE FLUSH
[2020-10-19] MEDS: PANTOPRAZOLE 40 MG INJ IV SCH ×2 (10:31→21:41)
[2020-10-19] MEDS: HEPARIN 5,000 UNIT/1 ML VIAL SUB-Q SCH ×2 (10:31→21:41)
[2020-10-19] MEDS: FLUTICASONE PROPIONATE NASAL SPRAY 16 GM NS SCH (10:31)
[2020-10-19] MEDS: POLYETHYLENE GLYCOL 3350 17 GM POWDER PO SCH (10:31)
[2020-10-19] MEDS: DOCUSATE SODIUM 100 MG/10 ML ORAL LIQD PO SCH ×2 (10:31→21:39)
--- NOTE | 2020-10-19 12:01 | Progress Note ---
Assessment and Plan Pt remains intubated, not sedated, intermittent blinking of eyes to painful stimulus (sternal rub) noted. tele reviewed - in SR with freq PACs HR 90s - 100s. Neurology w/u in progress - for brain MRI when stable. Optimize HR and BPs - Pt is tolerating tube feeding. Convert IV lopressor to PO lopressor and convert IV hydralazine to PO hydralazine, titrate as necessary. Renal indices are trending upwards - follow nephrology recs. Continue supportive measures. Overall guarded prognosis. The patient has been seen in conjunction with Dr. Mercedes who agrees with the assessment and plan of care. - Patient Problems (1) AMS (altered mental status) Current Visit: Yes Status: Acute (2) Cardiopulmonary arrest with successful resuscitation Current Visit: Yes Status: Acute (3) Acute respiratory failure Current Visit: Yes Status: Acute Qualifiers: Respiratory failure complication: hypoxia and hypercapnia Qualified Code(s): J96.01 - Acute respiratory failure with hypoxia; J96.02 - Acute respiratory failure with hypercapnia (4) Bilateral pneumonia Current Visit: Yes Status: Acute (5) Sepsis with hypotension Current Visit: Yes Status: Acute (6) Person under investigation for COVID-19 Current Visit: Yes Status: Ruled-out Plan to address problem: COVID-19 testing negative (7) Seizure Current Visit: Yes Status: Suspected (8) NSTEMI (non-ST elevated myocardial infarction) Current Visit: Yes Status: Acute Plan to address problem: suspect type II (9) MOE (acute kidney injury) Current Visit: Yes Status: Acute (10) GI bleed Current Visit: Yes Status: Acute (11) Acute heart failure with preserved ejection fraction (HFpEF) Current Visit: Yes Status: Acute (12) Hypernatremia Current Visit: Yes Status: Acute Subjective Date of service: 10/19/20 Principal diagnosis: Cardiac arrest; Septic Shock; Ac. hypoxemic & hypercapnic resp failure; MOE Interval history: pt remains intubated, not sedated, intermittent blinking of eyes to painful stimulus (sternal rub) noted. tele reviewed - in SR with freq PACs HR 90s - 100s. Objective Last Vital Signs Temp 100.2 F H 10/19/20 07:26 Pulse 136 H 10/19/20 11:06 Resp 15 10/19/20 09:00 BP 152/62 10/19/20 11:06 Pulse Ox 98 10/19/20 09:00 - Physical Examination General: Other (intubated) HEENT: Positive: Normocephaly Neck: Positive: neck supple, trachea midline Cardiac: Positive: Regular Rhythm, S1/S2 Lungs: Positive: Decreased Breath Sounds, Oxygen, Ventilated Respirations Neuro: Positive: Other (intubated) Abdomen: Positive: Soft Skin: Negative: Rash Extremities: Present: lower extr. pulses. Absent: edema - Labs and Meds CBC 10/19/20 Range/Units 04:55 WBC 15.1 H (4.5-11.0) K/mm3 RBC 3.87 (3.65-5.03) M/mm3 Hgb 11.1 L (11.8-15.2) gm/dl Hct 34.4 L (35.5-45.6) % Plt Count 230 (140-440) K/mm3 Lymph # (Auto) 0.6 L (1.2-5.4) K/mm3 [place] # (Auto) 1.8 H (0.0-0.8) K/mm3 Eos # (Auto) 0.2 (0.0-0.4) K/mm3 Baso # (Auto) 0.1 (0.0-0.1) K/mm3 Comprehensive Metabolic Panel 10/19/20 Range/Units 04:55 Sodium 141 (137-145) mmol/L Potassium 4.2 (3.6-5.0) mmol/L Chloride 99.7 (98-107) mmol/L Carbon Dioxide 30 (22-30) mmol/L BUN 104 H (9-20) mg/dL Creatinine 3.1 H (0.8-1.3) mg/dL Glucose 139 H (75-100) mg/dL Calcium 9.0 (8.4-10.2) mg/dL - Imaging and Cardiology EKG: report reviewed, image reviewed Echo: report reviewed (10/10/2020 - mod LVH, EF 55-60%, mild diastolic dysfunction) - Telemetry EKG Rhythm: Sinus Rhythm - EKG Sinus rhythms and dysrhythmias: sinus rhythm Repolarization changes or abnormalities: ST suggestive of injury, Q-T interval prolongation - Allied health notes Allied health notes reviewed: nursing
--- NOTE | 2020-10-19 13:04 | Progress Note ---
Assessment and Plan Assessment and plan: -Infectious disease, CCM, GI, nephrology, cardiology consulted, patient recommendations -Antibiotic therapy -10/18 recultured (blood/sputum/nasal discharge and urinalysis), tracheal aspirate with staph aureus -Cefepime extended and vancomycin started -Continue antihypertensive regimen (changed to p.o.), titrate as needed -Trend CBC, BMP -Follow-up urine lites -Continue mechanical ventilation, wean as tolerated, VAP bundle -Avoid nephrotoxic medications, strict intake and output, renal ultrasound shows no obstruction -Trend LFTs -10/10 echocardiogram shows left internal systolic function normal, moderate concentric left ventricle hypertrophy, mild to side diastolic dysfunction, LVEF 55 to 60% with no pericardial effusion -Bilateral Doppler ultrasound negative for DVT/SVT which shows bilateral popli teal cysts GI/DVT prophylaxis: SCDs to bilateral lower extremities while in bed, PPI, Heparin subq Dispo: ICU The high probability of a clinically significant, sudden or life threatening deterioration of the [multi] system(s) required my full and direct attention, intervention and personal management. The aggregate critical care time was [35] minutes. This time is in addition to time spent performing reported procedures but includes the following: [x] Data Review and interpretation [x] Patient assessment and monitoring of vital signs [x] Documentation [x] Medication orders and management History Interval history: This is a 55-year-old male with hypertension, asthma, obesity in the emergency by presents the emergency department on 10/10 after receiving a Covid vaccine being found unresponsive in his car in the emergency room by with no pulse and ACLS protocol was initiated from his car to emergency room #21 where it was continued. Patient was intubated after ROSC was achieved and a central line was placed and the patient was initiated on pressors. In the emergency room patient seems to have seizure-like activity and then collapsed and was unresponsive with no palpable pulse and ACLS was again initiated patient with achievement of ROSC. Patient again coded with ACLS protocol in the CT room. Upon arrival to the ICU patient again coded and ROSC was achieved and he was placed on epinephrine, Lasix, heparin and sodium bicarbonate drip and sedated with propofol. An NG tube was placed, A-line was placed. Patient was admitted to the hospitalist service with consult to [facility], nephrology, infectious disease and cardiology. 10/11: Patient COVID-19 PCR is pending and he remains on mechanical ventilation, examination on assist control 400/30/12/0.95. Patient is scheduled for an echocardiogram and we will obtain bilateral lower extremity Doppler ultrasound given elevated D-dimer. Patient was supposed to have a CTA chest when he coded yesterday. We will begin trickle feeding. This morning patient was on a heparin drip and was noted to have bloody drainage from his NG tube. Heparin drip was discontinued. 10/12: Patient remains on propofol and Lasix drip at the time my examination and he is on assist control 400/25/12/0.60. Patient is hypokalemic this morning which was repleted. Nephrlogy discontinued Lasix drip and Diamox. Patient is hypertensive and has been started on hydralazine and beta-shital IV. He has b een titrated off his vasopressors since yesterday. Vancomycin discontinued. Patient is currently on cefepime and azithromycin. 10/13: Sedation vacation attempted today and patient was not responsive to verbal or painful stimuli, does not track or focus or follow commands. This morning the patient has some respiratory alkalosis on ABG, hypernatremia and metabolic alkalosis on BMP. His kidney functions has improved slightly. Patient still has leukocytosis and infectious disease was like to continue antibiotic therapy. GI evaluated the patient yesterday and started the patient on PPI does not plan to scope at this time. At the time my examination patient assist-control 400/20/12/0.40 and sedated on propofol at 20. 4/2: GI has recommended a CT abdomen since there is increased output from OG tube and an MRI brain without contrast has been ordered per neurology recommendations. EEG is pending and the patient has been started on Keppra per neurology.. Nutrition has been consulted for initiation of parenteral nutrition. Patient remains sedated with propofol and his hypernatremia, le ukocytosis, acute kidney injury and metabolic alkalosis is improving. Patient has hypokalemia today which was repleted. At the time of my examination patient was on assist control 400/14/10/0.40 and CCM has dropped his rate to 12 and PEEP to 8. We have labs ordered for a.m. He was given a clonidine patch given persistent hypertension and he remains on D5 water per nephrology. 10/15: This morning patient was started to have a low-grade fever and he will continue antibiotic therapy per infectious disease. He will remove Tuttle catheter today and place a condom cath. Patient's renal function is worsening with a BUN/creatinine of 57/2.4 today and he has hyperphosphatemia at 5.2. This morning the time my examination patient is sedated on fentanyl and has TPN infusing. He is on assist control 400/12/8/0.35. Per GI we will start trial of tube feedings initiation has been reconsulted for orders. 10/18: Patient was febrile overnight and infectious disease has recultured (blood/sputum/right nostril culture) and sent in urinalysis. Cefepime was extended due to high fever and was started on vancomycin. Tube feeding is at goal and we will discontinue his parenteral nutrition. Patient is unable to obtain his MRI due to increased hypoxia and nasal secretions. He will be started on CPAP trials today. This time I examination patient was sedated on fentanyl and had PPN running at 42. His renal function tests have worsened and now has hyperchloremia. Hypernatremia has resolved. 10/19: Patient's T-max was 100.2 and he was pancultured yesterday, remains on antibiotic therapy and still has copious drainage from his nostrils. Patient still has leukocytosis however his/creatinine improved slightly to 3.1 from 3.3. Patient's urinalysis from yesterday shows pyuria. Patient's tracheal aspirate from yesterday grew Staph aureus. Patient is on cefepime and vancomycin. Sepsis Right-sided pneumonia NSTEMI type II Acute heart failure GI bleed Leukocytosis Hypochloremia Acute hypoxic respiratory failure Acute kidney injury Transaminitis HTN Obesity Hospitalist Physical - Constitutional Vitals: Temp Pulse Resp BP Pulse Ox 100.2 F H 106 H 25 H 129/72 99 10/19/20 07:26 10/19/20 12:45 10/19/20 12:45 10/19/20 12:45 10/19/20 12:45 General appearance: Present: no acute distress, well-nourished, other (Resting comfortably on mechanical ventilation, opens eye spontanously) - EENT Eyes: Present: PERRL ENT: other (bruising to tongue, copious brown/yepez nasal secretions) - Respiratory Respiratory effort: normal Respiratory: bilateral: rhonchi - Cardiovascular Rhythm: regular Heart Sounds: Present: S1 & S2. Absent: systolic murmur, diastolic murmur - Extremities Extremities: pulses intact, pulses symmetrical, normal temperature, normal color Peripheral Pulses: within normal limits - Abdominal General gastrointestinal: soft, non-tender, non-distended, normal bowel sounds - Integumentary Integumentary: Present: warm, dry - Psychiatric Psychiatric: other (Spontaneously opens eyes) - Neurologic Neurologic: other (open eyes spontaneously, does not follow commands, does not track or focus) HEART Score - HEART Score EKG: Non-specific Age: 45-65 Troponin: Troponin T 0.125 ng/mL (0.00-0.029) H* D 10/12/20 04:00 Troponin: 1-3x normal limit - Critical Actions Critical Actions: 4-6 pts:12-16.6% risk of adverse cardiac event. Should be admitted Results - Labs CBC & Chem 7: 10/19/20 04:55 10/19/20 04:55 Labs: Laboratory Last Values WBC 15.1 K/mm3 (4.5-11.0) H 10/19/20 04:55 RBC 3.87 M/mm3 (3.65-5.03) 10/19/20 04:55 Hgb 11.1 gm/dl (11.8-15.2) L 10/19/20 04:55 Hct 34.4 % (35.5-45.6) L 10/19/20 04:55 MCV 89 fl (84-94) 10/19/20 04:55 MCH 29 pg (28-32) 10/19/20 04:55 MCHC 32 % (32-34) 10/19/20 04:55 RDW 14.5 % (13.2-15.2) 10/19/20 04:55 Plt Count 230 K/mm3 (140-440) 10/19/20 04:55 Lymph % (Auto) 4.2 % (13.4-35.0) L 10/19/20 04:55 [place] % (Auto) 11.9 % (0.0-7.3) H 10/19/20 04:55 Eos % (Auto) 1.6 % (0.0-4.3) 10/19/20 04:55 Baso % (Auto) 0.3 % (0.0-1.8) 10/19/20 04:55 Lymph # (Auto) 0.6 K/mm3 (1.2-5.4) L 10/19/20 04:55 [place] # (Auto) 1.8 K/mm3 (0.0-0.8) H 10/19/20 04:55 Eos # (Auto) 0.2 K/mm3 (0.0-0.4) 10/19/20 04:55 Baso # (Auto) 0.1 K/mm3 (0.0-0.1) 10/19/20 04:55 Add Manual Diff Complete 10/10/20 18:18 Total Counted 100 10/10/20 18:18 Seg Neutrophils % 82.0 % (40.0-70.0) H 10/19/20 04:55 Seg Neuts % (Manual) 60.0 % (40.0-70.0) 10/10/20 18:18 Band Neutrophils % 27.0 % 10/10/20 18:18 Lymphocytes % (Manual) 4.0 % (13.4-35.0) L 10/10/20 18:18 Monocytes % (Manual) 9.0 % (0.0-7.3) H 10/10/20 18:18 Eosinophils % (Manual) 4.0 % (0.0-4.3) 10/10/20 10:48 Metamyelocytes % 1.0 % 10/10/20 10:48 Nucleated RBC % Not Reportable 10/10/20 18:18 Seg Neutrophils # 12.4 K/mm3 (1.8-7.7) H 10/19/20 04:55 Seg Neutrophils # Man 13.8 K/mm3 (1.8-7.7) H 10/10/20 18:18 Band Neutrophils # 6.2 K/mm3 10/10/20 18:18 Lymphocytes # (Manual) 0.9 K/mm3 (1.2-5.4) L 10/10/20 18:18 Abs React Lymphs (Man) 0.0 K/mm3 10/10/20 18:18 Monocytes # (Manual) 2.1 K/mm3 (0.0-0.8) H 10/10/20 18:18 Eosinophils # (Manual) 0.0 K/mm3 (0.0-0.4) 10/10/20 18:18 Basophils # (Manual) 0.0 K/mm3 (0.0-0.1) 10/10/20 18:18 Metamyelocytes # 0.0 K/mm3 10/10/20 18:18 Myelocytes # 0.0 K/mm3 10/10/20 18:18 Promyelocytes # 0.0 K/mm3 10/10/20 18:18 Blast Cells # 0.0 K/mm3 10/10/20 18:18 WBC Morphology Not Reportable 10/10/20 18:18 Hypersegmented Neuts Not Reportable 10/10/20 18:18 Hyposegmented Neuts Not Reportable 10/10/20 18:18 Hypogranular Neuts Not Reportable 10/10/20 18:18 Smudge Cells Not Reportable 10/10/20 18:18 Toxic Granulation Not Reportable 10/10/20 18:18 Toxic Vacuolation Not Reportable 10/10/20 18:18 Dohle Bodies Not Reportable 10/10/20 18:18 Pelger-Huet Anomaly Not Reportable 10/10/20 18:18 Dionicio Rods Not Reportable 10/10/20 18:18 Platelet Estimate Consistent w auto 10/10/20 18:18 Clumped Platelets Not Reportable 10/10/20 18:18 Plt Clumps, EDTA Not Reportable 10/10/20 18:18 Large Platelets Rare 10/10/20 18:18 Giant Platelets Rare 10/10/20 18:18 Platelet Satelliting Not Reportable 10/10/20 18:18 Plt Morphology Comment Not Reportable 10/10/20 18:18 RBC Morphology Not Reportable 10/10/20 18:18 Dimorphic RBCs Not Reportable 10/10/20 18:18 Polychromasia Not Reportable 10/10/20 18:18 Hypochromasia Not Reportable 10/10/20 18:18 Poikilocytosis Not Reportable 10/10/20 18:18 Anisocytosis Not Reportable 10/10/20 18:18 Microcytosis Not Reportable 10/10/20 18:18 Macrocytosis Not Reportable 10/10/20 18:18 Spherocytes Not Reportable 10/10/20 18:18 Pappenheimer Bodies Not Reportable 10/10/20 18:18 Sickle Cells Not Reportable 10/10/20 18:18 Target Cells Not Reportable 10/10/20 18:18 Tear Drop Cells Not Reportable 10/10/20 18:18 Ovalocytes Not Reportable 10/10/20 18:18 Helmet Cells Not Reportable 10/10/20 18:18 [place] Bodies Not Reportable 10/10/20 18:18 [place] Rings Not Reportable 10/10/20 18:18 Tam[place] Cells Not Reportable 10/10/20 18:18 Bite Cells Not Reportable 10/10/20 18:18 Crenated Cell Not Reportable 10/10/20 18:18 Elliptocytes Not Reportable 10/10/20 18:18 Acanthocytes (Spur) Not Reportable 10/10/20 18:18 Rouleaux Not Reportable 10/10/20 18:18 Hemoglobin C Crystals Not Reportable 10/10/20 18:18 Schistocytes Not Reportable 10/10/20 18:18 Malaria parasites Not Reportable 10/10/20 18:18 Mauricio Bodies Not Reportable 10/10/20 18:18 Hem Pathologist Commnt No 10/10/20 18:18 PT 13.8 Sec. (12.2-14.9) 10/10/20 18:18 INR 1.07 (0.87-1.13) 10/10/20 18:18 APTT 26.9 Sec. (24.2-36.6) 10/10/20 18:18 D-Dimer 679.5 ng/mlDDU (0-234) H 10/10/20 10:48 Heparin Anti-Xa Level 0.22 U.I./ml (0.3-0.7) L 10/11/20 08:35 ABG pH 7.419 pH Units (7.350-7.450) 10/16/20 05:10 POC ABG pCO2 59.6 mmHg (32.0-48.0) H 10/14/20 03:45 ABG pCO2 55.5 mm Hg 10/16/20 05:10 POC ABG pO2 93.3 mmHg (83-108) 10/14/20 03:45 ABG pO2 104.5 mm Hg (80.0-90.0) H 10/16/20 05:10 POC ABG HCO3 40.3 10/14/20 03:45 ABG HCO3 35.1 mmol/L (20.0-26.0) H 10/16/20 05:10 ABG O2 Saturation 97.7 % (95.0-99.0) 10/16/20 05:10 ABG O2 Content 10.8 (0.0-44) 10/16/20 05:10 POC ABG Base Excess 13.8 10/14/20 03:45 ABG Base Excess 9.5 mmol/L (-2.0-3.0) H 10/16/20 05:10 ABG Hemoglobin 7.9 gm/dl (14.0-18.0) L 10/16/20 05:10 ABG Oxyhemoglobin 95.8 (94-98) 10/14/20 03:45 ABG Carboxyhemoglobin 1.9 % (0.0-5.0) 10/16/20 05:10 ABG Methemoglobin 0.5 % (0.0-1.5) 10/16/20 05:10 ABG Sodium 151.4 mmol/L (136.0-145.0) H 10/14/20 03:45 ABG Potassium 3.3 mmol/L (3.40-4.50) L 10/14/20 03:45 ABG Chloride 105.0 mmol/L (98-107) 10/14/20 03:45 ABG Glucose 138 mg/dL (65-95) H 10/14/20 03:45 VBG pH 6.870 (7.320-7.420) L* 10/10/20 10:48 Oxyhemoglobin 95.3 % (95.0-99.0) 10/16/20 05:10 Carboxyhemoglobin 1.6 (0.5-1.5) H 10/14/20 03:45 FiO2 35 % 10/16/20 05:10 FiO2 % 40 10/14/20 03:45 Sodium 141 mmol/L (137-145) 10/19/20 04:55 Potassium 4.2 mmol/L (3.6-5.0) 10/19/20 04:55 Chloride 99.7 mmol/L (98-107) 10/19/20 04:55 Carbon Dioxide 30 mmol/L (22-30) 10/19/20 04:55 Anion Gap 16 mmol/L 10/19/20 04:55 BUN 104 mg/dL (9-20) H 10/19/20 04:55 Creatinine 3.1 mg/dL (0.8-1.3) H 10/19/20 04:55 Estimated GFR 26 ml/min 10/19/20 04:55 BUN/Creatinine Ratio 34 % 10/19/20 04:55 Glucose 139 mg/dL (75-100) H 10/19/20 04:55 POC Glucose 136 mg/dL (70-105) H 10/19/20 11:35 Hemoglobin A1c 6.0 % (4-6) 10/11/20 02:00 Lactic Acid 1.10 mmol/L (0.7-2.0) 10/13/20 04:52 Calcium 9.0 mg/dL (8.4-10.2) 10/19/20 04:55 Phosphorus 5.20 mg/dL (2.5-4.5) H D 10/17/20 03:32 Magnesium 2.30 mg/dL (1.7-2.3) 10/17/20 03:32 Ferritin 81.4 ng/mL (30.0-300.0) 10/10/20 10:48 Total Bilirubin 1.70 mg/dL (0.1-1.2) H 10/18/20 03:27 AST 37 units/L (5-40) 10/18/20 03:27 ALT 32 units/L (7-56) 10/18/20 03:27 Alkaline Phosphatase 97 units/L (35-129) 10/18/20 03:27 Ammonia 214.0 umol/L (25-60) H 10/10/20 10:46 Lactate Dehydrogenase 386 units/L (91-180) H 10/10/20 10:48 Total Creatine Kinase 1192 units/L (55-170) H 10/10/20 18:18 CK-MB (CK-2) 21.7 ng/mL (0.0-4.0) H 10/10/20 18:18 CK-MB (CK-2) Rel Index 1.8 (0-4) 10/10/20 18:18 Troponin T 0.125 ng/mL (0.00-0.029) H* D 10/12/20 04:00 C-Reactive Protein 0.90 mg/dL (0.00-1.30) 10/10/20 10:48 NT-Pro-B Natriuret Pep 1187 pg/mL (0-900) H 10/10/20 10:46 Total Protein 6.3 g/dL (6.3-8.2) 10/18/20 03:27 Albumin 3.1 g/dL (3.9-5) L 10/18/20 03:27 Albumin/Globulin Ratio 1.0 % 10/18/20 03:27 Triglycerides 278 mg/dL (2-149) H 10/13/20 04:52 Cholesterol 138 mg/dL (50-199) 10/10/20 18:18 LDL Cholesterol Direct 76 mg/dL (50-130) 10/10/20 18:18 HDL Cholesterol 49 mg/dL (40-59) 10/10/20 18:18 Cholesterol/HDL Ratio 2.81 % 10/10/20 18:18 Procalcitonin 4.98 ng/mL (<0.15) 10/15/20 04:12 TSH 6.260 mlU/mL (0.270-4.200) H 10/10/20 10:46 Arterial Blood Glucose 138 mg/dL (65-95) H 10/14/20 03:45 Arterial Blood Ionized Calcium 4.5 mg/dL (4.6-5.3) L 10/14/20 03:45 Urine Color Angelica (Yellow) 10/18/20 Unknown Urine Turbidity Cloudy (Clear) 10/18/20 Unknown Urine pH 5.0 (5.0-7.0) 10/18/20 Unknown Ur Specific [place] 1.017 (1.003-1.030) 10/18/20 Unknown Urine Protein 100 mg/dl mg/dL (Negative) 10/18/20 Unknown Urine Glucose (UA) Neg mg/dL (Negative) 10/18/20 Unknown Urine Ketones Neg mg/dL (Negative) 10/18/20 Unknown Urine Blood Lg (Negative) 10/18/20 Unknown Urine Nitrite Neg (Negative) 10/18/20 Unknown Urine Bilirubin Neg (Negative) 10/18/20 Unknown Urine Urobilinogen 4.0 mg/dL (<2.0) 10/18/20 Unknown Ur Leukocyte Esterase Neg (Negative) 10/18/20 Unknown Urine WBC (Auto) 115.0 /HPF (0.0-6.0) H 10/18/20 Unknown Urine RBC (Auto) 98.0 /HPF (0.0-6.0) 10/18/20 Unknown U Epithel Cells (Auto) 2.0 /HPF (0-13.0) 10/18/20 Unknown Urine WBC Clumps 3+ /HPF 10/18/20 Unknown Urine Mucus Few /HPF 10/11/20 13:30 Urine Eosinophils None seen (None Seen) 10/11/20 13:30 Urine Creatinine 80.5 mg/dL (0.1-20.0) H 10/11/20 13:30 Urine Sodium 110 mmol/L 10/11/20 13:30 Random Vancomycin 4.0 ug/mL (0-40.0) 10/18/20 11:47 Urine Opiates Screen Negative 10/10/20 10:50 Urine Methadone Screen Negative 10/10/20 10:50 Ur Barbiturates Screen Negative 10/10/20 10:50 Ur Phencyclidine Scrn Negative 10/10/20 10:50 Ur Amphetamines Screen Negative 10/10/20 10:50 U Benzodiazepines Scrn Negative 10/10/20 10:50 Urine Cocaine Screen Negative 10/10/20 10:50 U Marijuana (THC) Screen Positive 10/10/20 10:50 Drugs of Abuse Note Disclamer 10/10/20 10:50 Plasma/Serum Alcohol < 0.01 % (0-0.07) 10/10/20 10:48 Coronavirus (PCR) Negative (Negative) 10/11/20 Unknown Blood Type AB POSITIVE 10/10/20 10:48 Antibody Screen Negative 10/10/20 10:48 Microbiology: Microbiology 10/18/20 09:56 Tracheal Aspirate Sputum Culture - Preliminary Staphylococcus Aureus 10/18/20 11:00 Peripheral/Venous Blood Culture - Preliminary NO GROWTH AFTER 24 HOURS 10/18/20 11:00 Peripheral/Venous Blood Culture - Preliminary NO GROWTH AFTER 24 HOURS Tuttle/IV: Voiding Method Incontinent Active Medications - Current Medications Current Medications: Generic Name Dose Route Start Last Admin Trade Name Freq PRN Reason Stop Dose Admin Acetaminophen 650 mg 10/10/20 21:51 10/19/20 08:33 Acetaminophen 325 Mg Tab PO 650 mg Q4H PRN Administration Pain MILD(1-3)/Fever >100.5/SALV[place]OR Acetaminophen 650 mg 10/11/20 11:24 10/17/20 17:16 Acetaminophen 650 Mg Rect Supp MD 650 mg Q6H PRN Administration Fever >101 Albuterol 2.5 mg 10/11/20 13:12 Albuterol 2.5 Mg/3 Ml Nebu IH Q6HRT PRN Shortness Of Breath Lipase/Protease/Amylase 1 each 10/10/20 22:18 Lipase 10,500/Protease 25,000/Amylase 43,750 (Units) Dr Santana FEEDTUBE PRN PRN For Clogged Feeding Tube Clonidine HCl 0.3 mg 10/14/20 15:00 10/14/20 16:00 Clonidine Tts 0.3 Mg/24 Hr Patch TD 0.3 mg Fr PEPITO Administration Docusate Sodium 100 mg 10/16/20 22:00 10/19/20 10:31 Docusate Sodium 100 Mg/10 Ml Oral Liqd PO 100 mg BID PEPITO Administration Fentanyl 50 mcg 10/16/20 14:10 Fentanyl 100 Mcg/2 Ml Inj IV Q10MIN PRN ANALGESIA Fluticasone Propionate 50 mcg 10/18/20 14:00 10/19/20 10:31 Fluticasone Propionate Nasal [place] 16 Gm NS 50 mcg BID PEPITO Administration Glycopyrrolate 0.2 mg 10/16/20 15:00 10/19/20 06:00 Glycopyrrolate 0.4 Mg/2 Ml Inj IV 10/19/20 14:59 0.2 mg Q8H PEPITO Administration Heparin Sodium (Porcine) 5,000 unit 10/11/20 22:00 10/19/20 10:31 Heparin 5,000 Unit/1 Ml Vial SUB-Q 5,000 unit Q12HR PEPITO Administration Hydralazine HCl 5 mg 10/15/20 20:25 10/18/20 15:41 Hydralazine 20 Mg/1 Ml Inj IV 5 mg Q6H PRN Administration Hypertension Hydralazine HCl 50 mg 10/19/20 14:00 Hydralazine 25 Mg Tab PO Q8HR PEPITO Hydromorphone HCl 0.5 mg 10/10/20 21:51 10/15/20 14:45 Hydromorphone 1 Mg/1 Ml Inj IV 0.5 mg Q3H PRN Administration Pain , Severe (7-10) Hydrophilic Ointment 1 applic 10/10/20 10:34 Lip Therapy Vaseline TP Q2HR PRN Dry Lips Propofol 1,000 mg in 100 mls @ 4.23 mls/hr 10/10/20 12:00 10/17/20 00:36 Diprivan 10 Mg/Ml IV 0 mcg/kg/min TITR PEPITO 0 mls/hr Titration Protocol 5 MCG/KG/MIN Nitroglycerin/Dextrose 50 mg in 250 mls @ 3 mls/hr 10/10/20 13:00 10/10/20 13:17 Tridil Drip 50mg/250ml IV 0 mcg/min TITR PEPITO 0 mls/hr Titration Protocol 10 MCG/MIN Norepinephrine 8 mg/ Sodium 250 mls @ 3.75 mls/hr 10/10/20 14:00 10/10/20 22:15 Chloride IV 0 mcg/min TITRATE PEPITO 0 mls/hr Titration Protocol 2 MCG/MIN Cefepime HCl 2 gm in 100 mls @ 200 mls/hr 10/12/20 22:00 10/18/20 22:00 Cefepime/Ns 2 Gm/100 Ml IV 10/21/20 22:29 200 mls/hr Q24H PEPITO Administration Protocol Levetiracetam 500 mg/ Dextrose 105 mls @ 400 mls/hr 10/13/20 18:00 10/19/20 05:55 IV 400 mls/hr Q12H PEPITO Administration Fentanyl Citrate 2,000 mcg in 100 mls @ 6.175 mls/hr 10/16/20 15:00 10/19/20 08:35 Fentanyl Drip Premix IV 1 mcg/kg/hr TITR PEPITO 6.175 mls/hr Administration Protocol 1 MCG/KG/HR Metoclopramide HCl 10 mg 10/10/20 21:51 Metoclopramide 10 Mg/2 Ml Inj IV Q6H PRN Nausea And Vomiting Metoprolol Tartrate 50 mg 10/19/20 22:00 Metoprolol Tartrate 50 Mg Tab PO BID PEPITO Multi-Ingred Cream/Lotion/Oil/Oint 1 applic 10/10/20 10:34 Mineral Oil/Petrolatum, White Ophth Oint 3.5 Gm OU Q4HR PRN Dry Eye(s) Ondansetron HCl 4 mg 10/10/20 21:51 Ondansetron 4 Mg/2 Ml Inj IV Q3H PRN Nausea And Vomiting Pantoprazole Sodium 40 mg 10/12/20 22:00 10/19/20 10:31 Pantoprazole 40 Mg Inj IV 40 mg BID PEPITO Administration Polyethylene Glycol 17 gm 10/17/20 10:00 10/19/20 10:31 Polyethylene Glycol 3350 17 Gm Powder PO 17 gm QDAY PEPITO Administration Scopolamine 1 each 10/17/20 10:00 10/17/20 10:05 Scopolamine Transdermal Patch 72 Hr TD 1 each Q3D PEPITO Administration Simple Syrup 15 ml 10/10/20 22:18 Simple Syrup 15 Ml FEEDTUBE PRN PRN Hypoglycemia Simple Syrup 30 ml 10/10/20 22:18 Simple Syrup 15 Ml FEEDTUBE PRN PRN Hypoglycemia Sodium Bicarbonate 325 mg 10/10/20 22:18 Sodium Bicarbonate 325 Mg Tab FEEDTUBE PRN PRN For Clogged Feeding Tube Sodium Chloride 10 ml 10/10/20 22:00 10/19/20 10:32 Sodium Chloride 0.9% 10 Ml Flush Syringe IV 10 ml BID PEPITO Administration Sodium Chloride 10 ml 10/10/20 21:51 Sodium Chloride 0.9% 10 Ml Flush Syringe IV PRN PRN LINE FLUSH Nutrition/Malnutrition Assess - Dietary Evaluation Nutrition/Malnutrition Findings: Nutrition Notes Start: 10/11/20 08:38 Freq: Status: Active Protocol: Document 10/18/20 12:54 CW (Rec: 10/18/20 13:04 CW [id number]) Nutrition Notes Current Diagnosis Acute Kidney Injury,Sepsis, Hypertension,Heart Failure, Respiratory Failure Other Pertinent Diagnosis GIB, pneu, Covid 19, [place], pulmonary edema Current Diet CPN at 84 ml/hr+ TF Nepro at 45 ml/hr Labs/Tests BUN 90 Cr 3.3 BG 146 Pertinent Medications Miralax Colace Height 6 ft Weight 128.1 kg [place] Body Weight (kg) 80.90 BMI 38.2 Weight change and time frame Weight gain noted, will monitor Weight Status Morbidly Obese Subjective/Other Information Day 4 CPN. Pt is tolerating both CPN and TF well. CPN to be d/c'd today after completion of bag. TF of Nepro running at 35 ml/hr Percent of energy/protein needs met: 107%/(927 kcal from TF and 995 kcal from CPN) 79% Burn Absent Trauma Absent Current % PO Negligible Minimum of two criteria No physical signs of malnutrition #2 Nutrition Diagnosis Inadequate energy intake As Evidenced by Signs and Symptoms TF running at 45 ml/hr with CPN running at 84 ml/hr Diagnosis Progress(for reassessment Improved documentation) #1 Nutrition Diagnosis Inadequate oral intake Diagnosis Progress(for reassessment Continues documentation) Is patient on ventilator? Yes Is Patient Ambulatory and/or Out of Bed No REE-([place]-St. Jeor-confined to bed) 2600.352 Kcal/Kg value to use for calculation 14 Approximate Energy Requirements Using 1793 kcal/Kg Calculation Used for Recommendations Kcal/kg Additional Notes protein needs: >162g (>2 kgIBW ) fluid needs: 1 ml/kcal or per MD Nutrition Intervention Change Diet Order: D/C CPN Continue TF Nutrition Support: Nepro at 45 ml/hr with a free water flush of 200 ml q4h Kcal 1,944 Protein (gm) 87 Fluid (mL) 785 Goal #1 TF at goal and well tolerated Goal #2 Meet at least 75% of kcal needs via TF Anticipated Discharge Needs: unable to determine at this time Follow-Up By: 10/21/20 Additional Comments F/U TF at goal and tolerance
--- NOTE | 2020-10-19 13:09 | Progress Note ---
Assessment and Plan Cardiac arrest x3 with ROSC Severe septic and cardiogenic shock Acute respiratory failure with hypoxemia and hypercarbia Acute pulmonary edema MOE (acute kidney injury) Lactic acidosis, severe metabolic acidosis Bilateral pneumonia, aspiration pneumonia Elevated troponins - unable to get MRI due to copious secretions, increased work of breathing when supine and desaturations - increase Robinul top 2mg p.o. q6h - mucomyst nebs if persists - keep peep at 6 - follow urine lytes - continue flonase nasal spray for sinus congestion / exudation - AMS is rate limiting factor to safe extubation acutely - continue care as below otherwise; - follow MRI brain - continue set rate on MVS at 12/min - continue to hold on full anticoagulation re: negative Dopplers and clinical improvement in oxygenation - continue Clonidine 0.3 mg weekly patch - follow G.I. evaluation - de-escalate empiric anti-infective's per ID rec's (on Cefepime & s/p Azithromycin) - follow clinically re: fevers / WBC - Monitor hemodynamics closely - daily SAT's and SBT assessment as tolerated - wean supplemental oxygen for target O2 sat's > 92% acutely - VAP bundle addressed - continue lung protective strategies - bronchodilators with pulmonary hygiene per RT - wean per pulmonary driven protocols otherwise - Monitor urine output closely - bicarbonate infusion - avoid nephrotoxins, renally dose all medications - continue to avoid benzodiazepine's, reduce the possibility of delirium - continue Scopolamine for secretion control - continue wound care per RN/WCN - prn analgesia per CPOT score - Maintenance of sleep-wake cycle, avoid delirium - continue enteral nutritional support at goal rate as tolerated - G.I. & VTE prophylaxis - PT/OT/ROM exercises - continue mobility protocols for pressure ulcer prophylaxis - Monitor hemodynamics closely - continue other care per attending / other consultants - discharge planning ongoing concurrently .... Re-evaluate in am & prn CONDITION: CRITICAL PROGNOSIS: GUARDED CODE STATUS: FULL CODE The high probability of a clinically significant, sudden or life-threatening deterioration of the [respiratory, cardiovascular & neurologic] system(s) required my full and direct attention, intervention and personal management. The aggregate critical care time was [32] minutes without overlap. Time includes spent on; [x] Data Review and interpretation [x] Patient assessment and monitoring of vital signs [x] Documentation [x] Medication orders and management Subjective Date of service: 10/19/20 Principal diagnosis: Cardiac arrest; Septic Shock; Ac. hypoxemic & hypercapnic resp failure; MOE Interval history: Patient is seen today for: Cardiac arrest with ROSC; Severe septic and cardiogenic shock; Acute respiratory failure with hypoxemia and hypercarbia; Acute pulmonary edema; MOE; Lactic acidosis; severe metabolic acidosis; Bilateral pneumonia; aspiration pneumonia; Elevated troponins Seen and examined at bedside; 24hour events reviewed; nursing and respiratory care staff consulted; no adverse overnight events reported to me; resting peacefully in bed; remains on MVS; more alert but not following prompts; cuff leak test equivocal; tolerating SBT well; secretions copious; no high grade f annie; unable to get MRI done yesterday Objective Vital Signs - 12hr 10/19/20 10/19/20 10/19/20 01:15 01:30 01:45 Temperature Pulse Rate 90 87 94 H Pulse Rate [ From Monitor] Respiratory 8 L 8 L 8 L Rate Blood Pressure 143/87 126/79 125/81 O2 Sat by Pulse 98 98 98 Oximetry 10/19/20 10/19/20 10/19/20 02:00 02:15 02:30 Temperature Pulse Rate 88 86 93 H Pulse Rate [ From Monitor] Respiratory 10 L 8 L 8 L Rate Blood Pressure 127/79 118/76 113/80 O2 Sat by Pulse 97 97 98 Oximetry 10/19/20 10/19/20 10/19/20 02:46 03:00 03:15 Temperature Pulse Rate 95 H 96 H 94 H Pulse Rate [ From Monitor] Respiratory 8 L 8 L 10 L Rate Blood Pressure 133/82 133/82 144/72 O2 Sat by Pulse 98 98 99 Oximetry 10/19/20 10/19/20 10/19/20 03:30 03:46 04:00 Temperature 99.6 F Pulse Rate 95 H 96 H 99 H Pulse Rate [ 90 From Monitor] Respiratory 11 L 9 L 17 Rate Blood Pressure 141/66 127/70 121/72 O2 Sat by Pulse 96 97 98 Oximetry 10/19/20 10/19/20 10/19/20 04:15 04:30 04:46 Temperature Pulse Rate 95 H 98 H 94 H Pulse Rate [ From Monitor] Respiratory 9 L 10 L 8 L Rate Blood Pressure 129/79 129/79 154/73 O2 Sat by Pulse 96 97 96 Oximetry 10/19/20 10/19/20 10/19/20 04:55 05:00 05:15 Temperature Pulse Rate 102 H 95 H 99 H Pulse Rate [ From Monitor] Respiratory 10 L 13 Rate Blood Pressure 154/73 154/73 138/86 O2 Sat by Pulse 96 97 97 Oximetry 10/19/20 10/19/20 10/19/20 05:30 05:45 05:55 Temperature Pulse Rate 99 H 106 H 106 H Pulse Rate [ From Monitor] Respiratory 12 10 L Rate Blood Pressure 138/86 121/60 121/60 O2 Sat by Pulse 97 98 Oximetry 10/19/20 10/19/20 10/19/20 06:00 06:16 06:30 Temperature Pulse Rate 87 93 H 95 H Pulse Rate [ From Monitor] Respiratory 11 L 10 L 10 L Rate Blood Pressure 121/60 116/50 111/54 O2 Sat by Pulse 98 98 97 Oximetry 10/19/20 10/19/20 10/19/20 06:46 07:00 07:16 Temperature Pulse Rate 92 H 94 H 100 H Pulse Rate [ From Monitor] Respiratory 11 L 12 12 Rate Blood Pressure 150/70 154/76 143/78 O2 Sat by Pulse 99 99 98 Oximetry 10/19/20 10/19/20 10/19/20 07:26 07:30 07:45 Temperature 100.2 F H Pulse Rate 95 H 94 H Pulse Rate [ From Monitor] Respiratory 13 12 Rate Blood Pressure 143/78 125/66 O2 Sat by Pulse 98 99 Oximetry 10/19/20 10/19/20 10/19/20 08:00 08:15 08:24 Temperature Pulse Rate 96 H 90 95 H Pulse Rate [ 97 H From Monitor] Respiratory 10 L 11 L 11 L Rate Blood Pressure 125/63 117/50 117/50 O2 Sat by Pulse 98 98 99 Oximetry 10/19/20 10/19/20 10/19/20 08:30 08:46 09:00 Temperature Pulse Rate 95 H 94 H 95 H Pulse Rate [ From Monitor] Respiratory 13 14 15 Rate Blood Pressure 162/75 173/80 144/87 O2 Sat by Pulse 98 99 98 Oximetry 10/19/20 10/19/20 10/19/20 09:16 09:30 09:46 Temperature Pulse Rate 97 H 100 H 122 H Pulse Rate [ From Monitor] Respiratory 14 15 13 Rate Blood Pressure 149/81 155/85 133/68 O2 Sat by Pulse 98 98 98 Oximetry 10/19/20 10/19/20 10/19/20 10:00 10:16 10:30 Temperature Pulse Rate 130 H 125 H 129 H Pulse Rate [ From Monitor] Respiratory 13 11 L 9 L Rate Blood Pressure 133/68 109/51 121/52 O2 Sat by Pulse 97 97 97 Oximetry 10/19/20 10/19/20 10/19/20 10:46 11:00 11:06 Temperature Pulse Rate 143 H 124 H 136 H Pulse Rate [ From Monitor] Respiratory 24 22 Rate Blood Pressure 116/66 116/66 152/62 O2 Sat by Pulse 97 98 Oximetry 10/19/20 10/19/20 10/19/20 11:16 11:30 11:45 Temperature Pulse Rate 99 H 109 H 117 H Pulse Rate [ From Monitor] Respiratory 14 22 12 Rate Blood Pressure 122/59 138/70 122/65 O2 Sat by Pulse 99 98 98 Oximetry 10/19/20 10/19/20 10/19/20 12:00 12:15 12:24 Temperature Pulse Rate 117 H 120 H 112 H Pulse Rate [ 120 H From Monitor] Respiratory 19 17 13 Rate Blood Pressure 113/64 116/56 116/56 O2 Sat by Pulse 98 99 98 Oximetry 10/19/20 10/19/20 12:30 12:45 Temperature Pulse Rate 114 H 106 H Pulse Rate [ From Monitor] Respiratory 22 25 H Rate Blood Pressure 114/81 129/72 O2 Sat by Pulse 98 99 Oximetry Constitutional: appears uncomfortable, other (middle aged obese male with mildly increased respiratory efort at rest) Eyes: non-icteric ENT: oropharynx moist, oropharyngeal exudate pre, other (ETT 23 cm ANNIE) Neck: supple, no lymphadenopathy, no JVD Effort: mildly labored Ascultation: Bilateral: diminished breath sounds, rhonchi (with referred upper airway sounds) Percussion: Bilateral: not dull Cardiovascular: regular rate and rhythm Gastrointestinal: normoactive bowel sounds, soft, non-tender, non-distended (protuberant) Integumentary: normal Extremities: no cyanosis, no edema, pulses normal, no ischemia or petechiae Neurologic: non-focal exam (grossly; has spontaneous movements), pupils equal and round, CN II-XII normal, unable to assess Psychiatric: other (unable to assess re: AMS / flat affect) CBC and BMP: 04/08/21 04:30 10/20/20 04:30 ABG, PT/INR, D-dimer: ABG ABG pH 7.419 pH Units (7.350-7.450) 10/16/20 05:10 POC ABG pCO2 59.6 mmHg (32.0-48.0) H 10/14/20 03:45 ABG pCO2 55.5 mm Hg 10/16/20 05:10 POC ABG pO2 93.3 mmHg (83-108) 10/14/20 03:45 ABG pO2 104.5 mm Hg (80.0-90.0) H 10/16/20 05:10 POC ABG HCO3 40.3 10/14/20 03:45 ABG O2 Saturation 97.7 % (95.0-99.0) 10/16/20 05:10 PT/INR, D-dimer PT 13.8 Sec. (12.2-14.9) 10/10/20 18:18 INR 1.07 (0.87-1.13) 10/10/20 18:18 D-Dimer 679.5 ng/mlDDU (0-234) H 10/10/20 10:48 Abnormal lab findings: Abnormal Labs 10/10/20 10/10/20 10/10/20 10:46 10:46 10:46 WBC RBC Hgb Hct RDW Lymph % (Auto) [place] % (Auto) Lymph # (Auto) [place] # (Auto) Seg Neutrophils % Lymphocytes % (Manual) Monocytes % (Manual) Seg Neutrophils # Seg Neutrophils # Man Lymphocytes # (Manual) Monocytes # (Manual) D-Dimer Heparin Anti-Xa Level ABG pH POC ABG pCO2 POC ABG pO2 ABG pO2 ABG HCO3 ABG O2 Saturation ABG Base Excess ABG Hemoglobin ABG Oxyhemoglobin ABG Sodium ABG Potassium ABG Chloride ABG Glucose VBG pH Oxyhemoglobin Carboxyhemoglobin Sodium Potassium Chloride Carbon Dioxide BUN Creatinine Glucose POC Glucose Lactic Acid 13.60 H* Calcium Phosphorus Magnesium Total Bilirubin AST ALT Ammonia 214.0 H Lactate Dehydrogenase Total Creatine Kinase CK-MB (CK-2) Troponin T NT-Pro-B Natriuret Pep Total Protein Albumin Triglycerides TSH 6.260 H Arterial Blood Glucose Arterial Blood Ionized Calcium Urine pH Urine WBC (Auto) Urine Creatinine 10/10/20 10/10/2021 10:46 10:48 10:48 WBC RBC 5.28 H Hgb 15.5 H Hct 48.8 H RDW Lymph % (Auto) [place] % (Auto) Lymph # (Auto) [place] # (Auto) Seg Neutrophils % Lymphocytes % (Manual) 42.0 H Monocytes % (Manual) Seg Neutrophils # Seg Neutrophils # Man Lymphocytes # (Manual) Monocytes # (Manual) D-Dimer Heparin Anti-Xa Level ABG pH POC ABG pCO2 POC ABG pO2 ABG pO2 ABG HCO3 ABG O2 Saturation ABG Base Excess ABG Hemoglobin ABG Oxyhemoglobin ABG Sodium ABG Potassium ABG Chloride ABG Glucose VBG pH Oxyhemoglobin Carboxyhemoglobin Sodium Potassium 3.3 L Chloride 91.2 L Carbon Dioxide BUN Creatinine 1.8 H Glucose 231 H POC Glucose Lactic Acid Calcium Phosphorus Magnesium Total Bilirubin AST 60 H ALT 57 H Ammonia Lactate Dehydrogenase Total Creatine Kinase CK-MB (CK-2) Troponin T NT-Pro-B Natriuret Pep 1187 H Total Protein 9.0 H Albumin Triglycerides TSH Arterial Blood Glucose Arterial Blood Ionized Calcium Urine pH Urine WBC (Auto) Urine Creatinine 10/10/20 10/10/20 10/10/20 10:48 10:48 10:48 WBC RBC Hgb Hct RDW Lymph % (Auto) [place] % (Auto) Lymph # (Auto) [place] # (Auto) Seg Neutrophils % Lymphocytes % (Manual) Monocytes % (Manual) Seg Neutrophils # Seg Neutrophils # Man Lymphocytes # (Manual) Monocytes # (Manual) D-Dimer 679.5 H Heparin Anti-Xa Level ABG pH POC ABG pCO2 POC ABG pO2 ABG pO2 ABG HCO3 ABG O2 Saturation ABG Base Excess ABG Hemoglobin ABG Oxyhemoglobin ABG Sodium ABG Potassium ABG Chloride ABG Glucose VBG pH 6.870 L* Oxyhemoglobin Carboxyhemoglobin Sodium Potassium Chloride Carbon Dioxide BUN Creatinine Glucose POC Glucose Lactic Acid Calcium Phosphorus Magnesium Total Bilirubin AST ALT Ammonia Lactate Dehydrogenase 386 H Total Creatine Kinase CK-MB (CK-2) Troponin T NT-Pro-B Natriuret Pep Total Protein Albumin Triglycerides TSH Arterial Blood Glucose Arterial Blood Ionized Calcium Urine pH Urine WBC (Auto) Urine Creatinine 10/10/20 10/10/20 10/10/20 14:10 14:20 15:50 WBC RBC Hgb Hct RDW Lymph % (Auto) [place] % (Auto) Lymph # (Auto) [place] # (Auto) Seg Neutrophils % Lymphocytes % (Manual) Monocytes % (Manual) Seg Neutrophils # Seg Neutrophils # Man Lymphocytes # (Manual) Monocytes # (Manual) D-Dimer Heparin Anti-Xa Level ABG pH 7.175 L 7.247 L POC ABG pCO2 85.0 H POC ABG pO2 43.7 L ABG pO2 60.3 L ABG HCO3 32.0 H ABG O2 Saturation 86.1 L ABG Base Excess ABG Hemoglobin ABG Oxyhemoglobin 67.7 L ABG Sodium ABG Potassium ABG Chloride ABG Glucose 247 H VBG pH Oxyhemoglobin 84.4 L Carboxyhemoglobin Sodium Potassium Chloride Carbon Dioxide BUN Creatinine Glucose POC Glucose Lactic Acid 4.00 H* Calcium Phosphorus Magnesium Total Bilirubin AST ALT Ammonia Lactate Dehydrogenase Total Creatine Kinase CK-MB (CK-2) Troponin T NT-Pro-B Natriuret Pep Total Protein Albumin Triglycerides TSH Arterial Blood Glucose 247 H Arterial Blood Ionized Calcium 4.4 L Urine pH Urine WBC (Auto) Urine Creatinine 10/10/20 10/10/20 10/10/20 15:50 16:22 18:18 WBC RBC Hgb Hct RDW Lymph % (Auto) [place] % (Auto) Lymph # (Auto) [place] # (Auto) Seg Neutrophils % Lymphocytes % (Manual) Monocytes % (Manual) Seg Neutrophils # Seg Neutrophils # Man Lymphocytes # (Manual) Monocytes # (Manual) D-Dimer Heparin Anti-Xa Level ABG pH 7.171 L POC ABG pCO2 96.6 H POC ABG pO2 55.3 L ABG pO2 ABG HCO3 ABG O2 Saturation ABG Base Excess ABG Hemoglobin ABG Oxyhemoglobin 81.4 L ABG Sodium ABG Potassium ABG Chloride ABG Glucose 115 H VBG pH Oxyhemoglobin Carboxyhemoglobin Sodium Potassium Chloride Carbon Dioxide BUN Creatinine Glucose POC Glucose 132 H Lactic Acid Calcium Phosphorus Magnesium Total Bilirubin AST ALT Ammonia Lactate Dehydrogenase Total Creatine Kinase 1192 H CK-MB (CK-2) 21.7 H Troponin T 0.377 H* D NT-Pro-B Natriuret Pep Total Protein Albumin Triglycerides TSH Arterial Blood Glucose 115 H Arterial Blood Ionized Calcium Urine pH Urine WBC (Auto) Urine Creatinine 10/10/20 10/10/20 10/10/20 18:18 18:18 22:49 WBC 23.0 H RBC 5.12 H Hgb Hct RDW Lymph % (Auto) [place] % (Auto) Lymph # (Auto) [place] # (Auto) Seg Neutrophils % Lymphocytes % (Manual) 4.0 L Monocytes % (Manual) 9.0 H Seg Neutrophils # Seg Neutrophils # Man 13.8 H Lymphocytes # (Manual) 0.9 L Monocytes # (Manual) 2.1 H D-Dimer Heparin Anti-Xa Level ABG pH POC ABG pCO2 POC ABG pO2 ABG pO2 ABG HCO3 ABG O2 Saturation ABG Base Excess ABG Hemoglobin ABG Oxyhemoglobin ABG Sodium ABG Potassium ABG Chloride ABG Glucose VBG pH Oxyhemoglobin Carboxyhemoglobin Sodium 146 H Potassium Chloride Carbon Dioxide 34 H D BUN 27 H Creatinine 2.7 H Glucose 102 H POC Glucose Lactic Acid Calcium Phosphorus Magnesium Total Bilirubin AST 90 H ALT 66 H Ammonia Lactate Dehydrogenase Total Creatine Kinase CK-MB (CK-2) Troponin T 0.273 H* D NT-Pro-B Natriuret Pep Total Protein Albumin Triglycerides TSH Arterial Blood Glucose Arterial Blood Ionized Calcium Urine pH Urine WBC (Auto) Urine Creatinine 10/11/20 10/11/20 10/11/20 02:00 02:00 02:00 WBC 17.3 H RBC Hgb Hct RDW Lymph % (Auto) 3.9 L [place] % (Auto) Lymph # (Auto) 0.7 L [place] # (Auto) Seg Neutrophils % 93.0 H Lymphocytes % (Manual) Monocytes % (Manual) Seg Neutrophils # 16.1 H Seg Neutrophils # Man Lymphocytes # (Manual) Monocytes # (Manual) D-Dimer Heparin Anti-Xa Level ABG pH POC ABG pCO2 POC ABG pO2 ABG pO2 ABG HCO3 ABG O2 Saturation ABG Base Excess ABG Hemoglobin ABG Oxyhemoglobin ABG Sodium ABG Potassium ABG Chloride ABG Glucose VBG pH Oxyhemoglobin Carboxyhemoglobin Sodium 149 H Potassium 3.3 L Chloride 95.3 L Carbon Dioxide 37 H BUN 29 H Creatinine 2.6 H Glucose POC Glucose Lactic Acid Calcium Phosphorus Magnesium Total Bilirubin AST 80 H ALT 59 H Ammonia Lactate Dehydrogenase Total Creatine Kinase CK-MB (CK-2) Troponin T 0.201 H* D NT-Pro-B Natriuret Pep Total Protein Albumin 3.6 L Triglycerides TSH Arterial Blood Glucose Arterial Blood Ionized Calcium Urine pH Urine WBC (Auto) Urine Creatinine 10/11/20 10/11/20 10/11/20 03:51 08:35 11:15 WBC RBC Hgb Hct RDW Lymph % (Auto) [place] % (Auto) Lymph # (Auto) [place] # (Auto) Seg Neutrophils % Lymphocytes % (Manual) Monocytes % (Manual) Seg Neutrophils # Seg Neutrophils # Man Lymphocytes # (Manual) Monocytes # (Manual) D-Dimer Heparin Anti-Xa Level 0.22 L ABG pH 7.491 H POC ABG pCO2 57.6 H POC ABG pO2 ABG pO2 ABG HCO3 ABG O2 Saturation ABG Base Excess ABG Hemoglobin ABG Oxyhemoglobin ABG Sodium 150.0 H ABG Potassium 3.1 L ABG Chloride 96.0 L ABG Glucose 122 H VBG pH Oxyhemoglobin Carboxyhemoglobin Sodium Potassium Chloride Carbon Dioxide BUN Creatinine Glucose POC Glucose 151 H Lactic Acid Calcium Phosphorus Magnesium Total Bilirubin AST ALT Ammonia Lactate Dehydrogenase Total Creatine Kinase CK-MB (CK-2) Troponin T NT-Pro-B Natriuret Pep Total Protein Albumin Triglycerides TSH Arterial Blood Glucose 122 H Arterial Blood Ionized Calcium 3.9 L Urine pH Urine WBC (Auto) Urine Creatinine 10/11/20 10/11/20 10/11/20 13:30 13:30 13:30 WBC 15.0 H RBC Hgb Hct RDW Lymph % (Auto) [place] % (Auto) Lymph # (Auto) [place] # (Auto) Seg Neutrophils % Lymphocytes % (Manual) Monocytes % (Manual) Seg Neutrophils # Seg Neutrophils # Man Lymphocytes # (Manual) Monocytes # (Manual) D-Dimer Heparin Anti-Xa Level ABG pH POC ABG pCO2 POC ABG pO2 ABG pO2 ABG HCO3 ABG O2 Saturation ABG Base Excess ABG Hemoglobin ABG Oxyhemoglobin ABG Sodium ABG Potassium ABG Chloride ABG Glucose VBG pH Oxyhemoglobin Carboxyhemoglobin Sodium Potassium Chloride Carbon Dioxide BUN Creatinine Glucose POC Glucose Lactic Acid Calcium Phosphorus Magnesium Total Bilirubin AST ALT Ammonia Lactate Dehydrogenase Total Creatine Kinase CK-MB (CK-2) Troponin T NT-Pro-B Natriuret Pep Total Protein Albumin Triglycerides TSH Arterial Blood Glucose Arterial Blood Ionized Calcium Urine pH 9.0 H Urine WBC (Auto) 18.0 H Urine Creatinine 80.5 H 10/11/20 10/11/20 10/12/20 17:17 23:14 03:53 WBC RBC Hgb Hct RDW Lymph % (Auto) [place] % (Auto) Lymph # (Auto) [place] # (Auto) Seg Neutrophils % Lymphocytes % (Manual) Monocytes % (Manual) Seg Neutrophils # Seg Neutrophils # Man Lymphocytes # (Manual) Monocytes # (Manual) D-Dimer Heparin Anti-Xa Level ABG pH 7.545 H POC ABG pCO2 54.6 H POC ABG pO2 231.9 H ABG pO2 ABG HCO3 ABG O2 Saturation ABG Base Excess ABG Hemoglobin ABG Oxyhemoglobin 98.5 H ABG Sodium 150.5 H ABG Potassium 3.2 L ABG Chloride 96.0 L ABG Glucose 148 H VBG pH Oxyhemoglobin Carboxyhemoglobin Sodium Potassium Chloride Carbon Dioxide BUN Creatinine Glucose POC Glucose 121 H 135 H Lactic Acid Calcium Phosphorus Magnesium Total Bilirubin AST ALT Ammonia Lactate Dehydrogenase Total Creatine Kinase CK-MB (CK-2) Troponin T NT-Pro-B Natriuret Pep Total Protein Albumin Triglycerides TSH Arterial Blood Glucose 148 H Arterial Blood Ionized Calcium 3.8 L Urine pH Urine WBC (Auto) Urine Creatinine 10/12/20 10/12/20 10/12/20 04:00 05:10 05:12 WBC 14.3 H RBC Hgb 11.6 L Hct 35.2 L RDW Lymph % (Auto) [place] % (Auto) Lymph # (Auto) [place] # (Auto) Seg Neutrophils % Lymphocytes % (Manual) Monocytes % (Manual) Seg Neutrophils # Seg Neutrophils # Man Lymphocytes # (Manual) Monocytes # (Manual) D-Dimer Heparin Anti-Xa Level ABG pH POC ABG pCO2 POC ABG pO2 ABG pO2 ABG HCO3 ABG O2 Saturation ABG Base Excess ABG Hemoglobin ABG Oxyhemoglobin ABG Sodium ABG Potassium ABG Chloride ABG Glucose VBG pH Oxyhemoglobin Carboxyhemoglobin Sodium 155 H Potassium 3.3 L Chloride 97.9 L Carbon Dioxide 47 H* D BUN 50 H Creatinine 3.4 H Glucose 146 H POC Glucose 137 H Lactic Acid Calcium 8.0 L Phosphorus Magnesium Total Bilirubin AST ALT Ammonia Lactate Dehydrogenase Total Creatine Kinase CK-MB (CK-2) Troponin T 0.125 H* D NT-Pro-B Natriuret Pep Total Protein Albumin Triglycerides TSH Arterial Blood Glucose Arterial Blood Ionized Calcium Urine pH Urine WBC (Auto) Urine Creatinine 10/12/20 10/12/20 10/12/20 11:39 16:01 19:49 WBC RBC Hgb Hct RDW Lymph % (Auto) [place] % (Auto) Lymph # (Auto) [place] # (Auto) Seg Neutrophils % Lymphocytes % (Manual) Monocytes % (Manual) Seg Neutrophils # Seg Neutrophils # Man Lymphocytes # (Manual) Monocytes # (Manual) D-Dimer Heparin Anti-Xa Level ABG pH POC ABG pCO2 POC ABG pO2 ABG pO2 ABG HCO3 ABG O2 Saturation ABG Base Excess ABG Hemoglobin ABG Oxyhemoglobin ABG Sodium ABG Potassium ABG Chloride ABG Glucose VBG pH Oxyhemoglobin Carboxyhemoglobin Sodium 157 H Potassium 3.3 L Chloride Carbon Dioxide 47 H* BUN 52 H Creatinine 3.0 H Glucose 137 H POC Glucose 138 H 119 H Lactic Acid Calcium 8.0 L Phosphorus Magnesium Total Bilirubin AST ALT Ammonia Lactate Dehydrogenase Total Creatine Kinase CK-MB (CK-2) Troponin T NT-Pro-B Natriuret Pep Total Protein Albumin Triglycerides TSH Arterial Blood Glucose Arterial Blood Ionized Calcium Urine pH Urine WBC (Auto) Urine Creatinine 10/12/20 10/13/20 10/13/20 23:37 02:28 04:52 WBC RBC Hgb Hct RDW Lymph % (Auto) [place] % (Auto) Lymph # (Auto) [place] # (Auto) Seg Neutrophils % Lymphocytes % (Manual) Monocytes % (Manual) Seg Neutrophils # Seg Neutrophils # Man Lymphocytes # (Manual) Monocytes # (Manual) D-Dimer Heparin Anti-Xa Level ABG pH 7.485 H POC ABG pCO2 57.1 H POC ABG pO2 ABG pO2 ABG HCO3 ABG O2 Saturation ABG Base Excess ABG Hemoglobin ABG Oxyhemoglobin ABG Sodium 152.4 H ABG Potassium ABG Chloride ABG Glucose 129 H VBG pH Oxyhemoglobin Carboxyhemoglobin Sodium 155 H Potassium Chloride Carbon Dioxide 45 H* BUN 52 H Creatinine 2.7 H Glucose 121 H POC Glucose 131 H Lactic Acid Calcium Phosphorus Magnesium 2.40 H Total Bilirubin AST ALT Ammonia Lactate Dehydrogenase Total Creatine Kinase CK-MB (CK-2) Troponin T NT-Pro-B Natriuret Pep Total Protein Albumin Triglycerides 278 H TSH Arterial Blood Glucose 129 H Arterial Blood Ionized Calcium 4.1 L Urine pH Urine WBC (Auto) Urine Creatinine 10/13/20 10/13/20 10/13/20 04:52 05:13 11:37 WBC 14.7 H RBC Hgb 11.7 L Hct RDW 15.8 H Lymph % (Auto) [place] % (Auto) Lymph # (Auto) [place] # (Auto) Seg Neutrophils % Lymphocytes % (Manual) Monocytes % (Manual) Seg Neutrophils # Seg Neutrophils # Man Lymphocytes # (Manual) Monocytes # (Manual) D-Dimer Heparin Anti-Xa Level ABG pH POC ABG pCO2 POC ABG pO2 ABG pO2 ABG HCO3 ABG O2 Saturation ABG Base Excess ABG Hemoglobin ABG Oxyhemoglobin ABG Sodium ABG Potassium ABG Chloride ABG Glucose VBG pH Oxyhemoglobin Carboxyhemoglobin Sodium Potassium Chloride Carbon Dioxide BUN Creatinine Glucose POC Glucose 116 H 116 H Lactic Acid Calcium Phosphorus Magnesium Total Bilirubin AST ALT Ammonia Lactate Dehydrogenase Total Creatine Kinase CK-MB (CK-2) Troponin T NT-Pro-B Natriuret Pep Total Protein Albumin Triglycerides TSH Arterial Blood Glucose Arterial Blood Ionized Calcium Urine pH Urine WBC (Auto) Urine Creatinine 10/13/20 10/14/20 10/14/20 17:50 03:45 04:46 WBC 11.1 H RBC Hgb Hct RDW 15.3 H Lymph % (Auto) [place] % (Auto) Lymph # (Auto) [place] # (Auto) Seg Neutrophils % Lymphocytes % (Manual) Monocytes % (Manual) Seg Neutrophils # Seg Neutrophils # Man Lymphocytes # (Manual) Monocytes # (Manual) D-Dimer Heparin Anti-Xa Level ABG pH POC ABG pCO2 59.6 H POC ABG pO2 ABG pO2 ABG HCO3 ABG O2 Saturation ABG Base Excess ABG Hemoglobin ABG Oxyhemoglobin ABG Sodium 151.4 H ABG Potassium 3.3 L ABG Chloride ABG Glucose 138 H VBG pH Oxyhemoglobin Carboxyhemoglobin 1.6 H Sodium Potassium Chloride Carbon Dioxide BUN Creatinine Glucose POC Glucose 140 H Lactic Acid Calcium Phosphorus Magnesium Total Bilirubin AST ALT Ammonia Lactate Dehydrogenase Total Creatine Kinase CK-MB (CK-2) Troponin T NT-Pro-B Natriuret Pep Total Protein Albumin Triglycerides TSH Arterial Blood Glucose 138 H Arterial Blood Ionized Calcium 4.5 L Urine pH Urine WBC (Auto) Urine Creatinine 10/14/20 10/14/20 10/14/20 04:46 05:10 11:11 WBC RBC Hgb Hct RDW Lymph % (Auto) [place] % (Auto) Lymph # (Auto) [place] # (Auto) Seg Neutrophils % Lymphocytes % (Manual) Monocytes % (Manual) Seg Neutrophils # Seg Neutrophils # Man Lymphocytes # (Manual) Monocytes # (Manual) D-Dimer Heparin Anti-Xa Level ABG pH POC ABG pCO2 POC ABG pO2 ABG pO2 ABG HCO3 ABG O2 Saturation ABG Base Excess ABG Hemoglobin ABG Oxyhemoglobin ABG Sodium ABG Potassium ABG Chloride ABG Glucose VBG pH Oxyhemoglobin Carboxyhemoglobin Sodium 152 H Potassium 3.5 L Chloride Carbon Dioxide 38 H D BUN 46 H Creatinine 2.3 H Glucose 127 H POC Glucose 116 H 114 H Lactic Acid Calcium Phosphorus Magnesium Total Bilirubin AST ALT Ammonia Lactate Dehydrogenase Total Creatine Kinase CK-MB (CK-2) Troponin T NT-Pro-B Natriuret Pep Total Protein Albumin Triglycerides TSH Arterial Blood Glucose Arterial Blood Ionized Calcium Urine pH Urine WBC (Auto) Urine Creatinine 10/14/20 10/14/20 10/15/20 18:53 23:23 04:12 WBC RBC Hgb Hct RDW Lymph % (Auto) [place] % (Auto) Lymph # (Auto) [place] # (Auto) Seg Neutrophils % Lymphocytes % (Manual) Monocytes % (Manual) Seg Neutrophils # Seg Neutrophils # Man Lymphocytes # (Manual) Monocytes # (Manual) D-Dimer Heparin Anti-Xa Level ABG pH POC ABG pCO2 POC ABG pO2 ABG pO2 ABG HCO3 ABG O2 Saturation ABG Base Excess ABG Hemoglobin ABG Oxyhemoglobin ABG Sodium ABG Potassium ABG Chloride ABG Glucose VBG pH Oxyhemoglobin Carboxyhemoglobin Sodium 149 H Potassium 3.2 L Chloride Carbon Dioxide 37 H BUN 40 H Creatinine 2.0 H Glucose 124 H POC Glucose 128 H 113 H Lactic Acid Calcium Phosphorus Magnesium Total Bilirubin AST ALT Ammonia Lactate Dehydrogenase Total Creatine Kinase CK-MB (CK-2) Troponin T NT-Pro-B Natriuret Pep Total Protein Albumin Triglycerides TSH Arterial Blood Glucose Arterial Blood Ionized Calcium Urine pH Urine WBC (Auto) Urine Creatinine 10/15/20 10/15/20 10/15/20 04:22 11:39 17:36 WBC RBC Hgb Hct RDW Lymph % (Auto) [place] % (Auto) Lymph # (Auto) [place] # (Auto) Seg Neutrophils % Lymphocytes % (Manual) Monocytes % (Manual) Seg Neutrophils # Seg Neutrophils # Man Lymphocytes # (Manual) Monocytes # (Manual) D-Dimer Heparin Anti-Xa Level ABG pH POC ABG pCO2 POC ABG pO2 ABG pO2 115.0 H ABG HCO3 38.1 H ABG O2 Saturation ABG Base Excess 11.3 H ABG Hemoglobin 11.0 L ABG Oxyhemoglobin ABG Sodium ABG Potassium ABG Chloride ABG Glucose VBG pH Oxyhemoglobin Carboxyhemoglobin Sodium Potassium Chloride Carbon Dioxide BUN Creatinine Glucose POC Glucose 123 H 118 H Lactic Acid Calcium Phosphorus Magnesium Total Bilirubin AST ALT Ammonia Lactate Dehydrogenase Total Creatine Kinase CK-MB (CK-2) Troponin T NT-Pro-B Natriuret Pep Total Protein Albumin Triglycerides TSH Arterial Blood Glucose Arterial Blood Ionized Calcium Urine pH Urine WBC (Auto) Urine Creatinine 10/15/20 10/16/20 10/16/20 23:18 03:13 05:10 WBC RBC Hgb Hct RDW Lymph % (Auto) [place] % (Auto) Lymph # (Auto) [place] # (Auto) Seg Neutrophils % Lymphocytes % (Manual) Monocytes % (Manual) Seg Neutrophils # Seg Neutrophils # Man Lymphocytes # (Manual) Monocytes # (Manual) D-Dimer Heparin Anti-Xa Level ABG pH POC ABG pCO2 POC ABG pO2 ABG pO2 104.5 H ABG HCO3 35.1 H ABG O2 Saturation ABG Base Excess 9.5 H ABG Hemoglobin 7.9 L ABG Oxyhemoglobin ABG Sodium ABG Potassium ABG Chloride ABG Glucose VBG pH Oxyhemoglobin Carboxyhemoglobin Sodium Potassium 3.3 L Chloride Carbon Dioxide 33 H BUN 37 H Creatinine 1.4 H Glucose 148 H POC Glucose 135 H Lactic Acid Calcium Phosphorus Magnesium 2.40 H Total Bilirubin AST ALT Ammonia Lactate Dehydrogenase Total Creatine Kinase CK-MB (CK-2) Troponin T NT-Pro-B Natriuret Pep Total Protein Albumin Triglycerides TSH Arterial Blood Glucose Arterial Blood Ionized Calcium Urine pH Urine WBC (Auto) Urine Creatinine 10/16/20 10/16/20 10/16/20 06:36 11:08 17:07 WBC RBC Hgb Hct RDW Lymph % (Auto) [place] % (Auto) Lymph # (Auto) [place] # (Auto) Seg Neutrophils % Lymphocytes % (Manual) Monocytes % (Manual) Seg Neutrophils # Seg Neutrophils # Man Lymphocytes # (Manual) Monocytes # (Manual) D-Dimer Heparin Anti-Xa Level ABG pH POC ABG pCO2 POC ABG pO2 ABG pO2 ABG HCO3 ABG O2 Saturation ABG Base Excess ABG Hemoglobin ABG Oxyhemoglobin ABG Sodium ABG Potassium ABG Chloride ABG Glucose VBG pH Oxyhemoglobin Carboxyhemoglobin Sodium Potassium Chloride Carbon Dioxide BUN Creatinine Glucose POC Glucose 150 H 111 H 132 H Lactic Acid Calcium Phosphorus Magnesium Total Bilirubin AST ALT Ammonia Lactate Dehydrogenase Total Creatine Kinase CK-MB (CK-2) Troponin T NT-Pro-B Natriuret Pep Total Protein Albumin Triglycerides TSH Arterial Blood Glucose Arterial Blood Ionized Calcium Urine pH Urine WBC (Auto) Urine Creatinine 10/16/20 10/17/20 10/17/20 23:38 03:32 03:32 WBC RBC Hgb Hct RDW Lymph % (Auto) [place] % (Auto) Lymph # (Auto) [place] # (Auto) Seg Neutrophils % Lymphocytes % (Manual) Monocytes % (Manual) Seg Neutrophils # Seg Neutrophils # Man Lymphocytes # (Manual) Monocytes # (Manual) D-Dimer Heparin Anti-Xa Level ABG pH POC ABG pCO2 POC ABG pO2 ABG pO2 ABG HCO3 ABG O2 Saturation ABG Base Excess ABG Hemoglobin ABG Oxyhemoglobin ABG Sodium ABG Potassium ABG Chloride ABG Glucose VBG pH Oxyhemoglobin Carboxyhemoglobin Sodium 146 H Potassium Chloride Carbon Dioxide 32 H BUN 57 H Creatinine 2.4 H D Glucose 124 H POC Glucose 117 H Lactic Acid Calcium Phosphorus 5.20 H D Magnesium Total Bilirubin AST ALT Ammonia Lactate Dehydrogenase Total Creatine Kinase CK-MB (CK-2) Troponin T NT-Pro-B Natriuret Pep Total Protein Albumin Triglycerides TSH Arterial Blood Glucose Arterial Blood Ionized Calcium Urine pH Urine WBC (Auto) Urine Creatinine 10/17/20 10/17/20 10/18/20 05:10 17:33 00:13 WBC RBC Hgb Hct RDW Lymph % (Auto) [place] % (Auto) Lymph # (Auto) [place] # (Auto) Seg Neutrophils % Lymphocytes % (Manual) Monocytes % (Manual) Seg Neutrophils # Seg Neutrophils # Man Lymphocytes # (Manual) Monocytes # (Manual) D-Dimer Heparin Anti-Xa Level ABG pH POC ABG pCO2 POC ABG pO2 ABG pO2 ABG HCO3 ABG O2 Saturation ABG Base Excess ABG Hemoglobin ABG Oxyhemoglobin ABG Sodium ABG Potassium ABG Chloride ABG Glucose VBG pH Oxyhemoglobin Carboxyhemoglobin Sodium Potassium Chloride Carbon Dioxide BUN Creatinine Glucose POC Glucose 122 H 121 H 23 L Lactic Acid Calcium Phosphorus Magnesium Total Bilirubin AST ALT Ammonia Lactate Dehydrogenase Total Creatine Kinase CK-MB (CK-2) Troponin T NT-Pro-B Natriuret Pep Total Protein Albumin Triglycerides TSH Arterial Blood Glucose Arterial Blood Ionized Calcium Urine pH Urine WBC (Auto) Urine Creatinine 10/18/20 10/18/20 10/18/20 00:16 03:27 03:27 WBC RBC Hgb 11.7 L Hct RDW Lymph % (Auto) [place] % (Auto) Lymph # (Auto) [place] # (Auto) Seg Neutrophils % Lymphocytes % (Manual) Monocytes % (Manual) Seg Neutrophils # Seg Neutrophils # Man Lymphocytes # (Manual) Monocytes # (Manual) D-Dimer Heparin Anti-Xa Level ABG pH POC ABG pCO2 POC ABG pO2 ABG pO2 ABG HCO3 ABG O2 Saturation ABG Base Excess ABG Hemoglobin ABG Oxyhemoglobin ABG Sodium ABG Potassium ABG Chloride ABG Glucose VBG pH Oxyhemoglobin Carboxyhemoglobin Sodium Potassium Chloride 97.6 L Carbon Dioxide BUN 90 H Creatinine 3.3 H Glucose 146 H POC Glucose 134 H Lactic Acid Calcium Phosphorus Magnesium Total Bilirubin 1.70 H AST ALT Ammonia Lactate Dehydrogenase Total Creatine Kinase CK-MB (CK-2) Troponin T NT-Pro-B Natriuret Pep Total Protein Albumin 3.1 L Triglycerides TSH Arterial Blood Glucose Arterial Blood Ionized Calcium Urine pH Urine WBC (Auto) Urine Creatinine 10/18/20 10/18/20 10/18/20 05:09 11:19 17:15 WBC RBC Hgb Hct RDW Lymph % (Auto) [place] % (Auto) Lymph # (Auto) [place] # (Auto) Seg Neutrophils % Lymphocytes % (Manual) Monocytes % (Manual) Seg Neutrophils # Seg Neutrophils # Man Lymphocytes # (Manual) Monocytes # (Manual) D-Dimer Heparin Anti-Xa Level ABG pH POC ABG pCO2 POC ABG pO2 ABG pO2 ABG HCO3 ABG O2 Saturation ABG Base Excess ABG Hemoglobin ABG Oxyhemoglobin ABG Sodium ABG Potassium ABG Chloride ABG Glucose VBG pH Oxyhemoglobin Carboxyhemoglobin Sodium Potassium Chloride Carbon Dioxide BUN Creatinine Glucose POC Glucose 144 H 145 H 151 H Lactic Acid Calcium Phosphorus Magnesium Total Bilirubin AST ALT Ammonia Lactate Dehydrogenase Total Creatine Kinase CK-MB (CK-2) Troponin T NT-Pro-B Natriuret Pep Total Protein Albumin Triglycerides TSH Arterial Blood Glucose Arterial Blood Ionized Calcium Urine pH Urine WBC (Auto) Urine Creatinine 10/18/20 10/18/20 10/19/20 23:16 Unknown 04:55 WBC RBC Hgb Hct RDW Lymph % (Auto) [place] % (Auto) Lymph # (Auto) [place] # (Auto) Seg Neutrophils % Lymphocytes % (Manual) Monocytes % (Manual) Seg Neutrophils # Seg Neutrophils # Man Lymphocytes # (Manual) Monocytes # (Manual) D-Dimer Heparin Anti-Xa Level ABG pH POC ABG pCO2 POC ABG pO2 ABG pO2 ABG HCO3 ABG O2 Saturation ABG Base Excess ABG Hemoglobin ABG Oxyhemoglobin ABG Sodium ABG Potassium ABG Chloride ABG Glucose VBG pH Oxyhemoglobin Carboxyhemoglobin Sodium Potassium Chloride Carbon Dioxide BUN 104 H Creatinine 3.1 H Glucose 139 H POC Glucose 123 H Lactic Acid Calcium Phosphorus Magnesium Total Bilirubin AST ALT Ammonia Lactate Dehydrogenase Total Creatine Kinase CK-MB (CK-2) Troponin T NT-Pro-B Natriuret Pep Total Protein Albumin Triglycerides TSH Arterial Blood Glucose Arterial Blood Ionized Calcium Urine pH Urine WBC (Auto) 115.0 H Urine Creatinine 10/19/20 10/19/20 04:55 11:35 WBC 15.1 H RBC Hgb 11.1 L Hct 34.4 L RDW Lymph % (Auto) 4.2 L [place] % (Auto) 11.9 H Lymph # (Auto) 0.6 L [place] # (Auto) 1.8 H Seg Neutrophils % 82.0 H Lymphocytes % (Manual) Monocytes % (Manual) Seg Neutrophils # 12.4 H Seg Neutrophils # Man Lymphocytes # (Manual) Monocytes # (Manual) D-Dimer Heparin Anti-Xa Level ABG pH POC ABG pCO2 POC ABG pO2 ABG pO2 ABG HCO3 ABG O2 Saturation ABG Base Excess ABG Hemoglobin ABG Oxyhemoglobin ABG Sodium ABG Potassium ABG Chloride ABG Glucose VBG pH Oxyhemoglobin Carboxyhemoglobin Sodium Potassium Chloride Carbon Dioxide BUN Creatinine Glucose POC Glucose 136 H Lactic Acid Calcium Phosphorus Magnesium Total Bilirubin AST ALT Ammonia Lactate Dehydrogenase Total Creatine Kinase CK-MB (CK-2) Troponin T NT-Pro-B Natriuret Pep Total Protein Albumin Triglycerides TSH Arterial Blood Glucose Arterial Blood Ionized Calcium Urine pH Urine WBC (Auto) Urine Creatinine Chest x-ray: other (none today) Allied health notes reviewed: nursing
[2020-10-19] MEDS: hydrALAZINE 25 MG TAB PO SCH ×2 (14:37→21:40)
[2020-10-19] MEDS: GLYCOPYRROLATE 1 MG TAB PO SCH ×2 (14:38→21:41)
[2020-10-19] MEDS: hydrALAZINE 20 MG/1 ML INJ IV PRN (15:46)
[2020-10-19 16:51] LABS: Creatinine,Urine 93.7 mg/dL (0.1-20.0)
[2020-10-19] MEDS: METOPROLOL TARTRATE 50 MG TAB PO SCH (21:39)
[2020-10-19] MEDS: CEFEPIME/NS 2 GM/100 ML 2 GM/100 ML BAG IV SCH (21:42)
[2020-10-20 04:52] LABS: Hematocrit 35.8 % (35.5-45.6); Hemoglobin 11.7 gm/dl (11.8-15.2); Mean Corpuscular HGB Conc 33 % (32-34); Mean Corpuscular Volume 88 fl (84-94); Platelet Count 267 K/mm3 (140-440); Red Blood Count 4.06 M/mm3 (3.65-5.03); Red Cell Distribution Width 14.4 % (13.2-15.2)
[2020-10-20 05:13] LABS: Calcium 9.5 mg/dL (8.4-10.2)
[2020-10-20] MEDS: hydrALAZINE 25 MG TAB PO SCH ×3 (05:45→22:24)
[2020-10-20] MEDS: GLYCOPYRROLATE 1 MG TAB PO SCH ×4 (05:46→20:49)
[2020-10-20] MEDS: levETIRAcetam 500 MG in DEXTROSE 5% IN WATER 100 ML IV SCH ×2 (06:20→17:35)
[2020-10-20] MEDS: fentaNYL 100 MCG/2 ML INJ IV PRN (07:43)
--- NOTE | 2020-10-20 08:52 | XRay Report ---
CHEST 1 VIEW 10/20/2020 8:39 AM INDICATION / CLINICAL INFORMATION: febrile,. COMPARISON: 10/17/2020 FINDINGS: SUPPORT DEVICES: New left PICC line has tip in SVC. ET tube and NG tube again project in expected pos ition. HEART / MEDIASTINUM: No significant abnormality. LUNGS / PLEURA: Mild streaky bibasilar parenchymal disease has improved characteristic for resolving pneumonia. No pneumothorax. ADDITIONAL FINDINGS: No significant additional findings. IMPRESSION: 1. Resolving bilateral lower lobe pneumonia Signer Name: Ubaldo Mckay MD Signed: 10/20/2020 8:47 AM Workstation Name: [id number]
[2020-10-20] MEDS: PANTOPRAZOLE 40 MG INJ IV SCH ×2 (09:00→22:27)
[2020-10-20] MEDS: HEPARIN 5,000 UNIT/1 ML VIAL SUB-Q SCH ×2 (09:00→22:25)
[2020-10-20] MEDS: POLYETHYLENE GLYCOL 3350 17 GM POWDER PO SCH (09:01)
[2020-10-20] MEDS: METOPROLOL TARTRATE 50 MG TAB PO SCH ×2 (09:02→22:25)
[2020-10-20] MEDS: FLUTICASONE PROPIONATE NASAL SPRAY 16 GM NS SCH ×2 (09:09→22:22)
[2020-10-20] MEDS: ACETAMINOPHEN 325 MG TAB PO PRN (09:11)
[2020-10-20] MEDS: SCOPOLAMINE TRANSDERMAL PATCH 72 HR TD SCH (09:14)
--- NOTE | 2020-10-20 09:51 | Progress Note ---
Assessment and Plan 1. Acute kidney injury: Vasomotor MOE in the setting of Cardiac arrest and shock. Renal US negative for hydro. Monitor renal function. BUN level remains high. Creatinine level is improving. Multiple bladder scan showed no retention. Avoid nephrotoxic agents. Meds dosage based on GFR. 2. FEN: Volume overload, improved, monitor. Hypernatremia, sodium level is better, monitor. Metabolic alkalosis, improving, monitor. On Tube feeding. Monitor lytes and volume status. 3. Acute hypoxic respiratory failure, POA: 2/2 PNA and CHF. COVID test negative. Intubated on vent. 4. Sepsis, POA: 2/2 PNA. Abx. 5. NSTEMI type II: Post cardiac arrest EKG showed no acute ischemic changes. Followed by Cards. 6. Acute CHF: Echo showed Normal EF and mild DD. 7. S/p Cardiac arrest. 8. GI bleed: Followed by GI. 9. Elevated Transaminases: Trend. 10. HTN: Monitor. Adjust meds as needed. Subjective: Patient was seen and examined at the bedside. Objective: General appearance: well-developed, appears stated age, intubated, on vent HEENT: ATNC, pupils equal Neck: trachea midline Respiratory: ctab Heart: regular, S1S2, no murmur Gastrointestinal: soft, normoactive bowel sounds, not tender Integumentary: no rash, warm and dry Ext: no edema Neurologic: not responding Musculoskeletal: no obvious deformity Subjective Date of service: 10/20/20 Principal diagnosis: Cardiac arrest; Septic Shock; Ac. hypoxemic & hypercapnic resp failure; MOE Objective - Vital Signs Vital signs: Vital Signs - 12hr 10/19/20 10/19/20 10/19/20 22:00 22:16 22:30 Temperature Pulse Rate 128 H 127 H 134 H Pulse Rate [ From Monitor] Respiratory 16 15 16 Rate Blood Pressure 132/49 134/58 134/58 O2 Sat by Pulse 95 96 97 Oximetry 10/19/20 10/19/20 10/19/20 22:45 23:00 23:15 Temperature Pulse Rate 134 H 135 H 137 H Pulse Rate [ From Monitor] Respiratory 22 20 22 Rate Blood Pressure 156/96 146/79 148/87 O2 Sat by Pulse 98 97 97 Oximetry 10/19/20 10/19/20 10/20/20 23:30 23:45 00:00 Temperature 99.6 F Pulse Rate 136 H 136 H 137 H Pulse Rate [ 136 H From Monitor] Respiratory 18 20 20 Rate Blood Pressure 146/79 151/75 151/75 O2 Sat by Pulse 97 97 97 Oximetry 10/20/20 10/20/20 10/20/20 00:04 00:15 00:30 Temperature Pulse Rate 136 H 137 H 137 H Pulse Rate [ From Monitor] Respiratory 21 21 21 Rate Blood Pressure 148/87 148/78 143/69 O2 Sat by Pulse 97 97 97 Oximetry 10/20/20 10/20/20 10/20/20 00:32 00:45 01:00 Temperature Pulse Rate 136 H 136 H 138 H Pulse Rate [ From Monitor] Respiratory 25 H 23 Rate Blood Pressure 143/69 158/91 138/71 O2 Sat by Pulse 98 95 95 Oximetry 10/20/20 10/20/20 10/20/20 01:16 01:30 01:45 Temperature Pulse Rate 135 H 139 H 139 H Pulse Rate [ From Monitor] Respiratory 30 H 24 22 Rate Blood Pressure 178/93 143/74 146/76 O2 Sat by Pulse 96 95 95 Oximetry 10/20/20 10/20/20 10/20/20 02:00 02:15 02:30 Temperature Pulse Rate 139 H 138 H 132 H Pulse Rate [ From Monitor] Respiratory 23 28 H 21 Rate Blood Pressure 137/72 150/84 150/84 O2 Sat by Pulse 96 96 95 Oximetry 10/20/20 10/20/20 10/20/20 02:45 03:00 03:15 Temperature Pulse Rate 132 H 139 H 139 H Pulse Rate [ From Monitor] Respiratory 23 27 H 24 Rate Blood Pressure 133/61 154/81 155/76 O2 Sat by Pulse 95 96 95 Oximetry 10/20/20 10/20/20 10/20/20 03:19 03:30 03:45 Temperature Pulse Rate 129 H 138 H 135 H Pulse Rate [ From Monitor] Respiratory 55 H 26 H Rate Blood Pressure 155/76 155/76 174/81 O2 Sat by Pulse 96 98 97 Oximetry 10/20/20 10/20/20 10/20/20 04:00 04:16 04:30 Temperature 100.9 F H Pulse Rate 134 H 135 H 138 H Pulse Rate [ 128 H From Monitor] Respiratory 23 19 28 H Rate Blood Pressure 174/81 181/126 181/126 O2 Sat by Pulse 96 93 95 Oximetry 10/20/20 10/20/20 10/20/20 04:46 05:00 05:16 Temperature Pulse Rate 139 H 125 H 126 H Pulse Rate [ From Monitor] Respiratory 26 H 22 22 Rate Blood Pressure 136/74 136/74 199/110 O2 Sat by Pulse 94 94 95 Oximetry 10/20/20 10/20/20 10/20/20 05:30 05:45 05:46 Temperature Pulse Rate 137 H 139 H 139 H Pulse Rate [ From Monitor] Respiratory 32 H 22 Rate Blood Pressure 197/117 150/91 150/91 O2 Sat by Pulse 95 96 Oximetry 10/20/20 10/20/20 10/20/20 06:00 07:58 08:00 Temperature 98.6 F Pulse Rate 139 H 130 H Pulse Rate [ From Monitor] Respiratory 27 H 25 H Rate Blood Pressure 160/90 110/69 O2 Sat by Pulse 95 95 Oximetry 10/20/20 09:02 Temperature Pulse Rate 134 H Pulse Rate [ From Monitor] Respiratory Rate Blood Pressure 116/56 O2 Sat by Pulse Oximetry - Lab 10/20/20 04:30 10/20/20 04:30 Most recent lab results ABG pH 7.419 pH Units (7.350-7.450) 10/16/20 05:10 ABG pCO2 55.5 mm Hg 10/16/20 05:10 ABG pO2 104.5 mm Hg (80.0-90.0) H 10/16/20 05:10 ABG HCO3 35.1 mmol/L (20.0-26.0) H 10/16/20 05:10 ABG O2 Saturation 97.7 % (95.0-99.0) 10/16/20 05:10 Calcium 9.5 mg/dL (8.4-10.2) 10/20/20 04:30 Phosphorus 5.20 mg/dL (2.5-4.5) H D 10/17/20 03:32 Magnesium 2.30 mg/dL (1.7-2.3) 10/17/20 03:32 Urine Creatinine 93.7 mg/dL (0.1-20.0) H 10/19/20 13:14 Urine Sodium 25 mmol/L 10/19/20 13:14 Medications & Allergies - Medications Allergies/Adverse Reactions: Allergies No Known Allergies Allergy (Unverified 07/06/13 15:19) Home Medications: Home Medications Medication Instructions Recorded Confirmed Last Taken Type Albuterol Sulfate [Ventolin HFA] 2 puff IH Q4H PRN #1 hfa.aer.ad 07/06/13 Unknown Rx Prednisone 40 mg PO QDAY #8 tablet 07/06/13 Unknown Rx Albuterol Mdi (or & Nicu Only) 2 puff IH Q4H PRN #1 inha 07/07/13 Unknown Rx [ProAir HFA Inhaler] Azithromycin [Zithromax Z-KYLE] 500 mg PO QDAY #5 tab 07/07/13 Unknown Rx HYDROcodone/APAP 5-325 [[place] 2 each PO Q6H PRN #30 tablet 07/07/13 Unknown Rx 5-325 mg TAB] predniSONE [Deltasone] 40 mg PO QDAY #10 tablet 07/07/13 Unknown Rx Active Medications: Generic Name Dose Route Start Last Admin Trade Name Freq PRN Reason Stop Dose Admin Acetaminophen 650 mg 10/10/20 21:51 10/20/20 09:11 Acetaminophen 325 Mg Tab PO 650 mg Q4H PRN Administration Pain MILD(1-3)/Fever >100.5/[place] Acetaminophen 650 mg 10/11/20 11:24 10/17/20 17:16 Acetaminophen 650 Mg Rect Supp [place] 650 mg Q6H PRN Administration Fever >101 Albuterol 2.5 mg 10/11/20 13:12 Albuterol 2.5 Mg/3 Ml Nebu IH Q6HRT PRN Shortness Of Breath Lipase/Protease/Amylase 1 each 10/10/20 22:18 Lipase 10,500/Protease 25,000/Amylase 43,750 (Units) Dr Santana FEEDTUBE PRN PRN For Clogged Feeding Tube Clonidine HCl 0.3 mg 10/14/20 15:00 10/14/20 16:00 Clonidine Tts 0.3 Mg/24 Hr Patch TD 0.3 mg Fr PEPITO Administration Docusate Sodium 100 mg 10/16/20 22:00 10/19/20 21:39 Docusate Sodium 100 Mg/10 Ml Oral Liqd PO 100 mg BID PEPITO Administration Fentanyl 50 mcg 10/16/20 14:10 10/20/20 07:43 Fentanyl 100 Mcg/2 Ml Inj IV 50 mcg Q10MIN PRN Administration ANALGESIA Fluticasone Propionate 50 mcg 10/18/20 14:00 10/20/20 09:09 Fluticasone Propionate Nasal [place] 16 Gm NS 50 mcg BID PEPITO Administration Glycopyrrolate 2 mg 10/19/20 14:00 10/20/20 08:58 Glycopyrrolate 1 Mg Tab PO 2 mg Q6H PEPITO Administration Heparin Sodium (Porcine) 5,000 unit 10/11/20 22:00 10/20/20 09:00 Heparin 5,000 Unit/1 Ml Vial SUB-Q 5,000 unit Q12HR PEPITO Administration Hydralazine HCl 5 mg 10/15/20 20:25 10/19/20 15:46 Hydralazine 20 Mg/1 Ml Inj IV 5 mg Q6H PRN Administration Hypertension Hydralazine HCl 50 mg 10/19/20 14:00 10/20/20 05:45 Hydralazine 25 Mg Tab PO 50 mg Q8HR PEPITO Administration Hydromorphone HCl 0.5 mg 10/10/20 21:51 10/15/20 14:45 Hydromorphone 1 Mg/1 Ml Inj IV 0.5 mg Q3H PRN Administration Pain , Severe (7-10) Hydrophilic Ointment 1 applic 10/10/20 10:34 Lip Therapy Vaseline TP Q2HR PRN Dry Lips Propofol 1,000 mg in 100 mls @ 4.23 mls/hr 10/10/20 12:00 10/17/20 00:36 Diprivan 10 Mg/Ml IV 0 mcg/kg/min TITR PEPITO 0 mls/hr Titration Protocol 5 MCG/KG/MIN Nitroglycerin/Dextrose 50 mg in 250 mls @ 3 mls/hr 10/10/20 13:00 10/10/20 13:17 Tridil Drip 50mg/250ml IV 0 mcg/min TITR PEPITO 0 mls/hr Titration Protocol 10 MCG/MIN Norepinephrine 8 mg/ Sodium 250 mls @ 3.75 mls/hr 10/10/20 14:00 10/10/20 22:15 Chloride IV 0 mcg/min TITRATE PEPITO 0 mls/hr Titration Protocol 2 MCG/MIN Cefepime HCl 2 gm in 100 mls @ 200 mls/hr 10/12/20 22:00 10/19/20 21:42 Cefepime/Ns 2 Gm/100 Ml IV 10/21/20 22:29 200 mls/hr Q24H PEPITO Administration Protocol Levetiracetam 500 mg/ Dextrose 105 mls @ 400 mls/hr 10/13/20 18:00 10/20/20 06:20 IV 400 mls/hr Q12H PEPITO Administration Fentanyl Citrate 2,000 mcg in 100 mls @ 6.175 mls/hr 10/16/20 15:00 10/20/20 07:45 Fentanyl Drip Premix IV 2 mcg/kg/hr TITR PEPITO 12.35 mls/hr Titration Protocol 1 MCG/KG/HR Metoclopramide HCl 10 mg 10/10/20 21:51 Metoclopramide 10 Mg/2 Ml Inj IV Q6H PRN Nausea And Vomiting Metoprolol Tartrate 50 mg 10/19/20 22:00 10/20/20 09:02 Metoprolol Tartrate 50 Mg Tab PO 50 mg BID PEPITO Administration Multi-Ingred Cream/Lotion/Oil/Oint 1 applic 10/10/20 10:34 Mineral Oil/Petrolatum, White Ophth Oint 3.5 Gm OU Q4HR PRN Dry Eye(s) Ondansetron HCl 4 mg 10/10/20 21:51 Ondansetron 4 Mg/2 Ml Inj IV Q3H PRN Nausea And Vomiting Pantoprazole Sodium 40 mg 10/12/20 22:00 10/20/20 09:00 Pantoprazole 40 Mg Inj IV 40 mg BID PEPITO Administration Polyethylene Glycol 17 gm 10/17/20 10:00 10/20/20 09:01 Polyethylene Glycol 3350 17 Gm Powder PO 17 gm QDAY PEPITO Administration Scopolamine 1 each 10/17/20 10:00 10/20/20 09:14 Scopolamine Transdermal Patch 72 Hr TD 1 each Q3D PEPITO Administration Simple Syrup 15 ml 10/10/20 22:18 Simple Syrup 15 Ml FEEDTUBE PRN PRN Hypoglycemia Simple Syrup 30 ml 10/10/20 22:18 Simple Syrup 15 Ml FEEDTUBE PRN PRN Hypoglycemia Sodium Bicarbonate 325 mg 10/10/20 22:18 Sodium Bicarbonate 325 Mg Tab FEEDTUBE PRN PRN For Clogged Feeding Tube Sodium Chloride 10 ml 10/10/20 22:00 10/20/20 09:01 Sodium Chloride 0.9% 10 Ml Flush Syringe IV 10 ml BID PEPITO Administration Sodium Chloride 10 ml 10/10/20 21:51 Sodium Chloride 0.9% 10 Ml Flush Syringe IV PRN PRN LINE FLUSH
[2020-10-20] MEDS ORDERED: METOPROLOL TARTRATE 50 MG TAB PO SCH ×2 (10:20→11:00)
[2020-10-20] MEDS: fentaNYL DRIP Premix 2,000 MCG/100 ML BAG IV SCH ×2 (10:49→18:55)
[2020-10-20] MEDS: DOCUSATE SODIUM 100 MG/10 ML ORAL LIQD PO SCH ×2 (10:51→22:25)
[2020-10-20] MEDS ORDERED: VANCOMYCIN 1,500 MG in SODIUM CHLORIDE 0.9% 500 ML 500 ML IV ONE (11:00)
--- NOTE | 2020-10-20 11:20 | Progress Note ---
Assessment and Plan Cultures: SARS CoV2 PCR: negative. 10/10/2020 blood culture: No growth 10/10/2020 ET aspirate culture: Usual respiratory antonio 10/11/2020 urine culture: no growth 10/18/2020 blood culture: No growth today 10/18/2020 tracheal aspirate date: MRSA A/P: 55-year-old male with hypertension, asthma, obesity came into the emergency room after receiving the Covid vaccine and passing out in the car at the emergency room bay. Patient was found to be unresponsive with no pulse, ACLS was initiated: #Sepsis, likely secondary to pneumonia. COVID negative. Remains with fever, leukocytosis is up, noted right nostril copious purulunce on 10/18. ?sinusitis +/- UTI +/-MRSA pneumonia. #Right-sided pneumonia: Possible aspiration during ACLS. Procalcitonin low. Chest x-ray with persistent lung opacities. Tracheal aspirate now with MRSA. Patient with persistent fever. #Acute hypoxic respiratory failure: On mechanical ventilation. #MOE: Renally dose antibiotics. Worsening. Renal on board. #Elevated LFTs: Likely from sepsis #Urine tox screen positive for THC #Possible sinusitis from endotracheal intubation and mechanical ventilation: Initial CT head did not reveal any evidence of sinusitis. Patient is already on antibiotics. #Acute encephalopathy: neurology on board, evaluation in process. #UTI: Urine culture no growth. Repeat UA with worseing pyuria Recs: -Obtian right nostril culture -Remove NGT as positive -Sinus CT when feasable -Monitor fever -Stop cefepime D9 of 10 -Stop vancomycin -Start linezolid 600 g IV twice a day -Check MRSA PCR -pending will follow Kylah Carson MD [facility] ([facility]) Office [phone] Subjective Date of service: 10/20/20 Principal diagnosis: Cardiac arrest; Septic Shock; Ac. hypoxemic & hypercapnic resp failure; MOE Interval history: Remains intubated, noted temperature 100.9, sedated on fentanyl, tachycardic on monitor, alert does not follow commands Objective - Exam Narrative Exam: General appearance: Open eyes, intubated Eyes: anicteric sclerae, moist conjunctivae; no lid-lag; PERRLA HENT: Normocephalic, Atraumatic; normal external ears, nares open with right nostril thick purulence, left NG tube in place, oropharynx endotracheal tube in place Neck: supple, tracheal midline, no JVD Lungs: Bilateral rhonchi CV: RRR no murmur Abdomen: Soft, nontender Extremities: no edema, no cyanosis Skin: No rash. Psych: No agitated tearful Neuro: Alert does not follow commands - Constitutional Vitals: Vital Signs Temp Pulse Resp BP Pulse Ox 98.6 F 134 H 25 H 116/56 95 10/20/20 08:00 10/20/20 09:02 10/20/20 07:58 10/20/20 09:02 10/20/20 07:58 Temperature -Last 24 Hours Temperature 98.6 F Temperature 100.9 F Temperature 100.9 F Temperature 99.6 F Temperature 99.3 F Temperature 99.3 F Temperature 99.7 F Temperature 100.0 F - Labs CBC & Chem 7: 10/20/20 04:30 10/20/20 04:30 Labs: Abnormal lab results 10/19/20 10/19/20 10/19/20 Range/Units 11:35 13:14 17:53 WBC (4.5-11.0) K/mm3 Hgb (11.8-15.2) gm/dl BUN (9-20) mg/dL Creatinine (0.8-1.3) mg/dL Glucose (75-100) mg/dL POC Glucose 136 H 137 H (70-105) mg/dL Urine Creatinine 93.7 H (0.1-20.0) mg/dL 10/19/20 10/20/20 10/20/20 Range/Units 23:39 04:30 04:30 WBC 17.9 H (4.5-11.0) K/mm3 Hgb 11.7 L (11.8-15.2) gm/dl BUN 104 H (9-20) mg/dL Creatinine 2.8 H (0.8-1.3) mg/dL Glucose 151 H (75-100) mg/dL POC Glucose 133 H (70-105) mg/dL Urine Creatinine (0.1-20.0) mg/dL 10/20/20 Range/Units 05:38 WBC (4.5-11.0) K/mm3 Hgb (11.8-15.2) gm/dl BUN (9-20) mg/dL Creatinine (0.8-1.3) mg/dL Glucose (75-100) mg/dL POC Glucose 164 H (70-105) mg/dL Urine Creatinine (0.1-20.0) mg/dL
--- NOTE | 2020-10-20 12:00 | Progress Note ---
Assessment and Plan Cardiac arrest x3 with ROSC Severe septic and cardiogenic shock Acute respiratory failure with hypoxemia and hypercarbia Acute pulmonary edema MOE (acute kidney injury) Lactic acidosis, severe metabolic acidosis Bilateral pneumonia, aspiration pneumonia Elevated troponins (AMS remains rate limiting factor for safe extubation acutely) - agree with changing NG to OG tube - contact precautions re: MRSA - continue to work on secretions and treat pneumonia so BIPAP tolerance will be more likely - will tentatively extubate to BIPAP when meeting criteria - begin IVNS @ 75 mls/hr X 3 liters - Zyvox added - continue Robinul at 2mg p.o. q6h - keep peep at 6 - continue flonase nasal spray for sinus congestion / exudation - continue care as below otherwise; - follow MRI brain - continue set rate on MVS at 12/min - continue to hold on full anticoagulation re: negative Dopplers and clinical improvement in oxygenation - continue Clonidine 0.3 mg weekly patch - follow G.I. evaluation - de-escalate empiric anti-infective's per ID rec's (on Cefepime & s/p Azithromycin) - follow clinically re: fevers / WBC - Monitor hemodynamics closely - daily SAT's and SBT assessment as tolerated - wean supplemental oxygen for target O2 sat's > 92% acutely - VAP bundle addressed - continue lung protective strategies - bronchodilators with pulmonary hygiene per RT - wean per pulmonary driven protocols otherwise - Monitor urine output closely - bicarbonate infusion - avoid nephrotoxins, renally dose all medications - continue to avoid benzodiazepine's, reduce the possibility of delirium - continue Scopolamine for secretion control - continue wound care per RN/WCN - prn analgesia per CPOT score - Maintenance of sleep-wake cycle, avoid delirium - continue enteral nutritional support at goal rate as tolerated - G.I. & VTE prophylaxis - PT/OT/ROM exercises - continue mobility protocols for pressure ulcer prophylaxis - Monitor hemodynamics closely - continue other care per attending / other consultants - discharge planning ongoing concurrently .... Re-evaluate in am & prn CONDITION: CRITICAL PROGNOSIS: GUARDED CODE STATUS: FULL CODE The high probability of a clinically significant, sudden or life-threatening deterioration of the [respiratory, cardiovascular & neurologic] system(s) required my full and direct attention, intervention and personal management. The aggregate critical care time was [34] minutes without overlap. Time includes spent on; [x] Data Review and interpretation [x] Patient assessment and monitoring of vital signs [x] Documentation [x] Medication orders and management Subjective Date of service: 10/20/20 Principal diagnosis: Cardiac arrest; Septic Shock; Ac. hypoxemic & hypercapnic resp failure; MOE Interval history: Patient is seen today for: Cardiac arrest with ROSC; Severe septic and cardiogenic shock; Acute respiratory failure with hypoxemia and hypercarbia; Acute pulmonary edema; MOE; Lactic acidosis; severe metabolic acidosis; B ilateral pneumonia; aspiration pneumonia; Elevated troponins Seen and examined at bedside; 24hour events reviewed; nursing and respiratory care staff consulted; no adverse overnight events reported to me; resting peacefully in bed; remains on MVS; growing MRSA on tracheal aspirate; secretions a little better; AMS is persistent; azotemia appears pre-renal Objective Vital Signs - 12hr 10/20/20 10/20/20 10/20/20 00:00 00:04 00:15 Temperature 99.6 F Pulse Rate 137 H 136 H 137 H Pulse Rate [ 136 H From Monitor] Respiratory 20 21 21 Rate Blood Pressure 151/75 148/87 148/78 O2 Sat by Pulse 97 97 97 Oximetry 10/20/20 10/20/20 10/20/20 00:30 00:32 00:45 Temperature Pulse Rate 137 H 136 H 136 H Pulse Rate [ From Monitor] Respiratory 21 25 H Rate Blood Pressure 143/69 143/69 158/91 O2 Sat by Pulse 97 98 95 Oximetry 10/20/20 10/20/20 10/20/20 01:00 01:16 01:30 Temperature Pulse Rate 138 H 135 H 139 H Pulse Rate [ From Monitor] Respiratory 23 30 H 24 Rate Blood Pressure 138/71 178/93 143/74 O2 Sat by Pulse 95 96 95 Oximetry 10/20/20 10/20/20 10/20/20 01:45 02:00 02:15 Temperature Pulse Rate 139 H 139 H 138 H Pulse Rate [ From Monitor] Respiratory 22 23 28 H Rate Blood Pressure 146/76 137/72 150/84 O2 Sat by Pulse 95 96 96 Oximetry 10/20/20 10/20/20 10/20/20 02:30 02:45 03:00 Temperature Pulse Rate 132 H 132 H 139 H Pulse Rate [ From Monitor] Respiratory 21 23 27 H Rate Blood Pressure 150/84 133/61 154/81 O2 Sat by Pulse 95 95 96 Oximetry 10/20/20 10/20/20 10/20/20 03:15 03:19 03:30 Temperature Pulse Rate 139 H 129 H 138 H Pulse Rate [ From Monitor] Respiratory 24 55 H Rate Blood Pressure 155/76 155/76 155/76 O2 Sat by Pulse 95 96 98 Oximetry 10/20/20 10/20/20 10/20/20 03:45 04:00 04:16 Temperature 100.9 F H Pulse Rate 135 H 134 H 135 H Pulse Rate [ 128 H From Monitor] Respiratory 26 H 23 19 Rate Blood Pressure 174/81 174/81 181/126 O2 Sat by Pulse 97 96 93 Oximetry 10/20/20 10/20/20 10/20/20 04:30 04:46 05:00 Temperature Pulse Rate 138 H 139 H 125 H Pulse Rate [ From Monitor] Respiratory 28 H 26 H 22 Rate Blood Pressure 181/126 136/74 136/74 O2 Sat by Pulse 95 94 94 Oximetry 10/20/20 10/20/20 10/20/20 05:16 05:30 05:45 Temperature Pulse Rate 126 H 137 H 139 H Pulse Rate [ From Monitor] Respiratory 22 32 H Rate Blood Pressure 199/110 197/117 150/91 O2 Sat by Pulse 95 95 Oximetry 10/20/20 10/20/20 10/20/20 05:46 06:00 06:16 Temperature Pulse Rate 139 H 139 H 131 H Pulse Rate [ From Monitor] Respiratory 22 27 H 25 H Rate Blood Pressure 150/91 160/90 132/64 O2 Sat by Pulse 96 95 94 Oximetry 10/20/20 10/20/20 10/20/20 06:30 06:45 07:00 Temperature Pulse Rate 138 H 139 H 139 H Pulse Rate [ From Monitor] Respiratory 29 H 26 H 25 H Rate Blood Pressure 168/91 158/83 131/70 O2 Sat by Pulse 96 96 94 Oximetry 10/20/20 10/20/20 10/20/20 07:15 07:30 07:46 Temperature Pulse Rate 141 H 141 H 133 H Pulse Rate [ From Monitor] Respiratory 34 H 26 H 22 Rate Blood Pressure 132/87 145/79 116/56 O2 Sat by Pulse 94 94 94 Oximetry 10/20/20 10/20/20 10/20/20 07:58 08:00 08:16 Temperature 98.6 F Pulse Rate 130 H 135 H 141 H Pulse Rate [ From Monitor] Respiratory 25 H 22 29 H Rate Blood Pressure 110/69 116/56 171/96 O2 Sat by Pulse 95 94 95 Oximetry 10/20/20 10/20/20 10/20/20 08:30 08:46 09:00 Temperature Pulse Rate 131 H 130 H 130 H Pulse Rate [ From Monitor] Respiratory 20 22 22 Rate Blood Pressure 109/38 116/56 116/56 O2 Sat by Pulse 94 94 94 Oximetry 10/20/20 10/20/20 10/20/20 09:02 09:16 09:30 Temperature Pulse Rate 134 H 120 H 103 H Pulse Rate [ From Monitor] Respiratory 22 22 Rate Blood Pressure 116/56 139/72 107/62 O2 Sat by Pulse 95 95 Oximetry 10/20/20 10/20/20 10/20/20 09:45 10:00 10:16 Temperature Pulse Rate 107 H 114 H 117 H Pulse Rate [ From Monitor] Respiratory 21 26 H 27 H Rate Blood Pressure 107/71 107/71 176/81 O2 Sat by Pulse 95 97 92 Oximetry 10/20/20 10/20/20 10/20/20 10:30 10:46 11:00 Temperature Pulse Rate 116 H 120 H 104 H Pulse Rate [ From Monitor] Respiratory 23 22 16 Rate Blood Pressure 187/67 164/61 117/67 O2 Sat by Pulse 94 94 93 Oximetry 10/20/20 10/20/20 10/20/20 11:15 11:21 11:30 Temperature Pulse Rate 117 H 108 H 105 H Pulse Rate [ From Monitor] Respiratory 16 14 14 Rate Blood Pressure 121/85 121/85 105/66 O2 Sat by Pulse 90 92 92 Oximetry Constitutional: no acute distress, other (middle aged obese male with mildly increased respiratory efort at rest) Eyes: non-icteric ENT: oropharynx moist, oropharyngeal exudate pre, other (ETT 23 cm ANNIE) Neck: supple, no lymphadenopathy, no JVD Effort: mildly labored Ascultation: Bilateral: diminished breath sounds, rhonchi (with referred upper airway sounds) Percussion: Bilateral: not dull Cardiovascular: regular rate and rhythm Gastrointestinal: normoactive bowel sounds, soft, non-tender, non-distended (protuberant) Integumentary: normal Extremities: no cyanosis, no edema, pulses normal, no ischemia or petechiae Neurologic: non-focal exam (grossly; has spontaneous movements), pupils equal and round, CN II-XII normal, unable to assess Psychiatric: other (unable to assess re: AMS / flat affect) CBC and BMP: 10/20/20 04:30 10/20/20 04:30 ABG, PT/INR, D-dimer: ABG ABG pH 7.419 pH Units (7.350-7.450) 10/16/20 05:10 POC ABG pCO2 59.6 mmHg (32.0-48.0) H 10/14/20 03:45 ABG pCO2 55.5 mm Hg 10/16/20 05:10 POC ABG pO2 93.3 mmHg (83-108) 10/14/20 03:45 ABG pO2 104.5 mm Hg (80.0-90.0) H 10/16/20 05:10 POC ABG HCO3 40.3 10/14/20 03:45 ABG O2 Saturation 97.7 % (95.0-99.0) 10/16/20 05:10 PT/INR, D-dimer PT 13.8 Sec. (12.2-14.9) 10/10/20 18:18 INR 1.07 (0.87-1.13) 10/10/20 18:18 D-Dimer 679.5 ng/mlDDU (0-234) H 10/10/20 10:48 Abnormal lab findings: Abnormal Labs 10/10/20 10/10/20 10/10/20 10:46 10:46 10:46 WBC RBC Hgb Hct RDW Lymph % (Auto) [place] % (Auto) Lymph # (Auto) [place] # (Auto) Seg Neutrophils % Lymphocytes % (Manual) Monocytes % (Manual) Seg Neutrophils # Seg Neutrophils # Man Lymphocytes # (Manual) Monocytes # (Manual) D-Dimer Heparin Anti-Xa Level ABG pH POC ABG pCO2 POC ABG pO2 ABG pO2 ABG HCO3 ABG O2 Saturation ABG Base Excess ABG Hemoglobin ABG Oxyhemoglobin ABG Sodium ABG Potassium ABG Chloride ABG Glucose VBG pH Oxyhemoglobin Carboxyhemoglobin Sodium Potassium Chloride Carbon Dioxide BUN Creatinine Glucose POC Glucose Lactic Acid 13.60 H* Calcium Phosphorus Magnesium Total Bilirubin AST ALT Ammonia 214.0 H Lactate Dehydrogenase Total Creatine Kinase CK-MB (CK-2) Troponin T NT-Pro-B Natriuret Pep Total Protein Albumin Triglycerides TSH 6.260 H Arterial Blood Glucose Arterial Blood Ionized Calcium Urine pH Urine WBC (Auto) Urine Creatinine 10/10/20 10/10/20 10/10/20 10:46 10:48 10:48 WBC RBC 5.28 H Hgb 15.5 H Hct 48.8 H RDW Lymph % (Auto) [place] % (Auto) Lymph # (Auto) [place] # (Auto) Seg Neutrophils % Lymphocytes % (Manual) 42.0 H Monocytes % (Manual) Seg Neutrophils # Seg Neutrophils # Man Lymphocytes # (Manual) Monocytes # (Manual) D-Dimer Heparin Anti-Xa Level ABG pH POC ABG pCO2 POC ABG pO2 ABG pO2 ABG HCO3 ABG O2 Saturation ABG Base Excess ABG Hemoglobin ABG Oxyhemoglobin ABG Sodium ABG Potassium ABG Chloride ABG Glucose VBG pH Oxyhemoglobin Carboxyhemoglobin Sodium Potassium 3.3 L Chloride 91.2 L Carbon Dioxide BUN Creatinine 1.8 H Glucose 231 H POC Glucose Lactic Acid Calcium Phosphorus Magnesium Total Bilirubin AST 60 H ALT 57 H Ammonia Lactate Dehydrogenase Total Creatine Kinase CK-MB (CK-2) Troponin T NT-Pro-B Natriuret Pep 1187 H Total Protein 9.0 H Albumin Triglycerides TSH Arterial Blood Glucose Arterial Blood Ionized Calcium Urine pH Urine WBC (Auto) Urine Creatinine 10/10/20 10/10/20 10/10/20 10:48 10:48 10:48 WBC RBC Hgb Hct RDW Lymph % (Auto) [place] % (Auto) Lymph # (Auto) [place] # (Auto) Seg Neutrophils % Lymphocytes % (Manual) Monocytes % (Manual) Seg Neutrophils # Seg Neutrophils # Man Lymphocytes # (Manual) Monocytes # (Manual) D-Dimer 679.5 H Heparin Anti-Xa Level ABG pH POC ABG pCO2 POC ABG pO2 ABG pO2 ABG HCO3 ABG O2 Saturation ABG Base Excess ABG Hemoglobin ABG Oxyhemoglobin ABG Sodium ABG Potassium ABG Chloride ABG Glucose VBG pH 6.870 L* Oxyhemoglobin Carboxyhemoglobin Sodium Potassium Chloride Carbon Dioxide BUN Creatinine Glucose POC Glucose Lactic Acid Calcium Phosphorus Magnesium Total Bilirubin AST ALT Ammonia Lactate Dehydrogenase 386 H Total Creatine Kinase CK-MB (CK-2) Troponin T NT-Pro-B Natriuret Pep Total Protein Albumin Triglycerides TSH Arterial Blood Glucose Arterial Blood Ionized Calcium Urine pH Urine WBC (Auto) Urine Creatinine 10/10/20 10/10/20 10/10/20 14:10 14:20 15:50 WBC RBC Hgb Hct RDW Lymph % (Auto) [place] % (Auto) Lymph # (Auto) [place] # (Auto) Seg Neutrophils % Lymphocytes % (Manual) Monocytes % (Manual) Seg Neutrophils # Seg Neutrophils # Man Lymphocytes # (Manual) Monocytes # (Manual) D-Dimer Heparin Anti-Xa Level ABG pH 7.175 L 7.247 L POC ABG pCO2 85.0 H POC ABG pO2 43.7 L ABG pO2 60.3 L ABG HCO3 32.0 H ABG O2 Saturation 86.1 L ABG Base Excess ABG Hemoglobin ABG Oxyhemoglobin 67.7 L ABG Sodium ABG Potassium ABG Chloride ABG Glucose 247 H VBG pH Oxyhemoglobin 84.4 L Carboxyhemoglobin Sodium Potassium Chloride Carbon Dioxide BUN Creatinine Glucose POC Glucose Lactic Acid 4.00 H* Calcium Phosphorus Magnesium Total Bilirubin AST ALT Ammonia Lactate Dehydrogenase Total Creatine Kinase CK-MB (CK-2) Troponin T NT-Pro-B Natriuret Pep Total Protein Albumin Triglycerides TSH Arterial Blood Glucose 247 H Arterial Blood Ionized Calcium 4.4 L Urine pH Urine WBC (Auto) Urine Creatinine 10/10/20 10/10/20 10/10/20 15:50 16:22 18:18 WBC RBC Hgb Hct RDW Lymph % (Auto) [place] % (Auto) Lymph # (Auto) [place] # (Auto) Seg Neutrophils % Lymphocytes % (Manual) Monocytes % (Manual) Seg Neutrophils # Seg Neutrophils # Man Lymphocytes # (Manual) Monocytes # (Manual) D-Dimer Heparin Anti-Xa Level ABG pH 7.171 L POC ABG pCO2 96.6 H POC ABG pO2 55.3 L ABG pO2 ABG HCO3 ABG O2 Saturation ABG Base Excess ABG Hemoglobin ABG Oxyhemoglobin 81.4 L ABG Sodium ABG Potassium ABG Chloride ABG Glucose 115 H VBG pH Oxyhemoglobin Carboxyhemoglobin Sodium Potassium Chloride Carbon Dioxide BUN Creatinine Glucose POC Glucose 132 H Lactic Acid Calcium Phosphorus Magnesium Total Bilirubin AST ALT Ammonia Lactate Dehydrogenase Total Creatine Kinase 1192 H CK-MB (CK-2) 21.7 H Troponin T 0.377 H* D NT-Pro-B Natriuret Pep Total Protein Albumin Triglycerides TSH Arterial Blood Glucose 115 H Arterial Blood Ionized Calcium Urine pH Urine WBC (Auto) Urine Creatinine 10/10/20 10/10/20 10/10/20 18:18 18:18 22:49 WBC 23.0 H RBC 5.12 H Hgb Hct RDW Lymph % (Auto) [place] % (Auto) Lymph # (Auto) [place] # (Auto) Seg Neutrophils % Lymphocytes % (Manual) 4.0 L Monocytes % (Manual) 9.0 H Seg Neutrophils # Seg Neutrophils # Man 13.8 H Lymphocytes # (Manual) 0.9 L Monocytes # (Manual) 2.1 H D-Dimer Heparin Anti-Xa Level ABG pH POC ABG pCO2 POC ABG pO2 ABG pO2 ABG HCO3 ABG O2 Saturation ABG Base Excess ABG Hemoglobin ABG Oxyhemoglobin ABG Sodium ABG Potassium ABG Chloride ABG Glucose VBG pH Oxyhemoglobin Carboxyhemoglobin Sodium 146 H Potassium Chloride Carbon Dioxide 34 H D BUN 27 H Creatinine 2.7 H Glucose 102 H POC Glucose Lactic Acid Calcium Phosphorus Magnesium Total Bilirubin AST 90 H ALT 66 H Ammonia Lactate Dehydrogenase Total Creatine Kinase CK-MB (CK-2) Troponin T 0.273 H* D NT-Pro-B Natriuret Pep Total Protein Albumin Triglycerides TSH Arterial Blood Glucose Arterial Blood Ionized Calcium Urine pH Urine WBC (Auto) Urine Creatinine 10/11/20 10/11/20 10/11/20 02:00 02:00 02:00 WBC 17.3 H RBC Hgb Hct RDW Lymph % (Auto) 3.9 L [place] % (Auto) Lymph # (Auto) 0.7 L [place] # (Auto) Seg Neutrophils % 93.0 H Lymphocytes % (Manual) Monocytes % (Manual) Seg Neutrophils # 16.1 H Seg Neutrophils # Man Lymphocytes # (Manual) Monocytes # (Manual) D-Dimer Heparin Anti-Xa Level ABG pH POC ABG pCO2 POC ABG pO2 ABG pO2 ABG HCO3 ABG O2 Saturation ABG Base Excess ABG Hemoglobin ABG Oxyhemoglobin ABG Sodium ABG Potassium ABG Chloride ABG Glucose VBG pH Oxyhemoglobin Carboxyhemoglobin Sodium 149 H Potassium 3.3 L Chloride 95.3 L Carbon Dioxide 37 H BUN 29 H Creatinine 2.6 H Glucose POC Glucose Lactic Acid Calcium Phosphorus Magnesium Total Bilirubin AST 80 H ALT 59 H Ammonia Lactate Dehydrogenase Total Creatine Kinase CK-MB (CK-2) Troponin T 0.201 H* D NT-Pro-B Natriuret Pep Total Protein Albumin 3.6 L Triglycerides TSH Arterial Blood Glucose Arterial Blood Ionized Calcium Urine pH Urine WBC (Auto) Urine Creatinine 10/11/20 10/11/20 10/11/20 03:51 08:35 11:15 WBC RBC Hgb Hct RDW Lymph % (Auto) [place] % (Auto) Lymph # (Auto) [place] # (Auto) Seg Neutrophils % Lymphocytes % (Manual) Monocytes % (Manual) Seg Neutrophils # Seg Neutrophils # Man Lymphocytes # (Manual) Monocytes # (Manual) D-Dimer Heparin Anti-Xa Level 0.22 L ABG pH 7.491 H POC ABG pCO2 57.6 H POC ABG pO2 ABG pO2 ABG HCO3 ABG O2 Saturation ABG Base Excess ABG Hemoglobin ABG Oxyhemoglobin ABG Sodium 150.0 H ABG Potassium 3.1 L ABG Chloride 96.0 L ABG Glucose 122 H VBG pH Oxyhemoglobin Carboxyhemoglobin Sodium Potassium Chloride Carbon Dioxide BUN Creatinine Glucose POC Glucose 151 H Lactic Acid Calcium Phosphorus Magnesium Total Bilirubin AST ALT Ammonia Lactate Dehydrogenase Total Creatine Kinase CK-MB (CK-2) Troponin T NT-Pro-B Natriuret Pep Total Protein Albumin Triglycerides TSH Arterial Blood Glucose 122 H Arterial Blood Ionized Calcium 3.9 L Urine pH Urine WBC (Auto) Urine Creatinine 10/11/20 10/11/20 10/11/20 13:30 13:30 13:30 WBC 15.0 H RBC Hgb Hct RDW Lymph % (Auto) [place] % (Auto) Lymph # (Auto) [place] # (Auto) Seg Neutrophils % Lymphocytes % (Manual) Monocytes % (Manual) Seg Neutrophils # Seg Neutrophils # Man Lymphocytes # (Manual) Monocytes # (Manual) D-Dimer Heparin Anti-Xa Level ABG pH POC ABG pCO2 POC ABG pO2 ABG pO2 ABG HCO3 ABG O2 Saturation ABG Base Excess ABG Hemoglobin ABG Oxyhemoglobin ABG Sodium ABG Potassium ABG Chloride ABG Glucose VBG pH Oxyhemoglobin Carboxyhemoglobin Sodium Potassium Chloride Carbon Dioxide BUN Creatinine Glucose POC Glucose Lactic Acid Calcium Phosphorus Magnesium Total Bilirubin AST ALT Ammonia Lactate Dehydrogenase Total Creatine Kinase CK-MB (CK-2) Troponin T NT-Pro-B Natriuret Pep Total Protein Albumin Triglycerides TSH Arterial Blood Glucose Arterial Blood Ionized Calcium Urine pH 9.0 H Urine WBC (Auto) 18.0 H Urine Creatinine 80.5 H 10/11/20 10/11/20 10/12/20 17:17 23:14 03:53 WBC RBC Hgb Hct RDW Lymph % (Auto) [place] % (Auto) Lymph # (Auto) [place] # (Auto) Seg Neutrophils % Lymphocytes % (Manual) Monocytes % (Manual) Seg Neutrophils # Seg Neutrophils # Man Lymphocytes # (Manual) Monocytes # (Manual) D-Dimer Heparin Anti-Xa Level ABG pH 7.545 H POC ABG pCO2 54.6 H POC ABG pO2 231.9 H ABG pO2 ABG HCO3 ABG O2 Saturation ABG Base Excess ABG Hemoglobin ABG Oxyhemoglobin 98.5 H ABG Sodium 150.5 H ABG Potassium 3.2 L ABG Chloride 96.0 L ABG Glucose 148 H VBG pH Oxyhemoglobin Carboxyhemoglobin Sodium Potassium Chloride Carbon Dioxide BUN Creatinine Glucose POC Glucose 121 H 135 H Lactic Acid Calcium Phosphorus Magnesium Total Bilirubin AST ALT Ammonia Lactate Dehydrogenase Total Creatine Kinase CK-MB (CK-2) Troponin T NT-Pro-B Natriuret Pep Total Protein Albumin Triglycerides TSH Arterial Blood Glucose 148 H Arterial Blood Ionized Calcium 3.8 L Urine pH Urine WBC (Auto) Urine Creatinine 10/12/20 10/12/20 10/12/20 04:00 05:10 05:12 WBC 14.3 H RBC Hgb 11.6 L Hct 35.2 L RDW Lymph % (Auto) [place] % (Auto) Lymph # (Auto) [place] # (Auto) Seg Neutrophils % Lymphocytes % (Manual) Monocytes % (Manual) Seg Neutrophils # Seg Neutrophils # Man Lymphocytes # (Manual) Monocytes # (Manual) D-Dimer Heparin Anti-Xa Level ABG pH POC ABG pCO2 POC ABG pO2 ABG pO2 ABG HCO3 ABG O2 Saturation ABG Base Excess ABG Hemoglobin ABG Oxyhemoglobin ABG Sodium ABG Potassium ABG Chloride ABG Glucose VBG pH Oxyhemoglobin Carboxyhemoglobin Sodium 155 H Potassium 3.3 L Chloride 97.9 L Carbon Dioxide 47 H* D BUN 50 H Creatinine 3.4 H Glucose 146 H POC Glucose 137 H Lactic Acid Calcium 8.0 L Phosphorus Magnesium Total Bilirubin AST ALT Ammonia Lactate Dehydrogenase Total Creatine Kinase CK-MB (CK-2) Troponin T 0.125 H* D NT-Pro-B Natriuret Pep Total Protein Albumin Triglycerides TSH Arterial Blood Glucose Arterial Blood Ionized Calcium Urine pH Urine WBC (Auto) Urine Creatinine 10/12/20 10/12/2021 11:39 16:01 19:49 WBC RBC Hgb Hct RDW Lymph % (Auto) [place] % (Auto) Lymph # (Auto) [place] # (Auto) Seg Neutrophils % Lymphocytes % (Manual) Monocytes % (Manual) Seg Neutrophils # Seg Neutrophils # Man Lymphocytes # (Manual) Monocytes # (Manual) D-Dimer Heparin Anti-Xa Level ABG pH POC ABG pCO2 POC ABG pO2 ABG pO2 ABG HCO3 ABG O2 Saturation ABG Base Excess ABG Hemoglobin ABG Oxyhemoglobin ABG Sodium ABG Potassium ABG Chloride ABG Glucose VBG pH Oxyhemoglobin Carboxyhemoglobin Sodium 157 H Potassium 3.3 L Chloride Carbon Dioxide 47 H* BUN 52 H Creatinine 3.0 H Glucose 137 H POC Glucose 138 H 119 H Lactic Acid Calcium 8.0 L Phosphorus Magnesium Total Bilirubin AST ALT Ammonia Lactate Dehydrogenase Total Creatine Kinase CK-MB (CK-2) Troponin T NT-Pro-B Natriuret Pep Total Protein Albumin Triglycerides TSH Arterial Blood Glucose Arterial Blood Ionized Calcium Urine pH Urine WBC (Auto) Urine Creatinine 10/12/20 10/13/20 10/13/20 23:37 02:28 04:52 WBC RBC Hgb Hct RDW Lymph % (Auto) [place] % (Auto) Lymph # (Auto) [place] # (Auto) Seg Neutrophils % Lymphocytes % (Manual) Monocytes % (Manual) Seg Neutrophils # Seg Neutrophils # Man Lymphocytes # (Manual) Monocytes # (Manual) D-Dimer Heparin Anti-Xa Level ABG pH 7.485 H POC ABG pCO2 57.1 H POC ABG pO2 ABG pO2 ABG HCO3 ABG O2 Saturation ABG Base Excess ABG Hemoglobin ABG Oxyhemoglobin ABG Sodium 152.4 H ABG Potassium ABG Chloride ABG Glucose 129 H VBG pH Oxyhemoglobin Carboxyhemoglobin Sodium 155 H Potassium Chloride Carbon Dioxide 45 H* BUN 52 H Creatinine 2.7 H Glucose 121 H POC Glucose 131 H Lactic Acid Calcium Phosphorus Magnesium 2.40 H Total Bilirubin AST ALT Ammonia Lactate Dehydrogenase Total Creatine Kinase CK-MB (CK-2) Troponin T NT-Pro-B Natriuret Pep Total Protein Albumin Triglycerides 278 H TSH Arterial Blood Glucose 129 H Arterial Blood Ionized Calcium 4.1 L Urine pH Urine WBC (Auto) Urine Creatinine 10/13/20 10/13/20 10/13/20 04:52 05:13 11:37 WBC 14.7 H RBC Hgb 11.7 L Hct RDW 15.8 H Lymph % (Auto) [place] % (Auto) Lymph # (Auto) [place] # (Auto) Seg Neutrophils % Lymphocytes % (Manual) Monocytes % (Manual) Seg Neutrophils # Seg Neutrophils # Man Lymphocytes # (Manual) Monocytes # (Manual) D-Dimer Heparin Anti-Xa Level ABG pH POC ABG pCO2 POC ABG pO2 ABG pO2 ABG HCO3 ABG O2 Saturation ABG Base Excess ABG Hemoglobin ABG Oxyhemoglobin ABG Sodium ABG Potassium ABG Chloride ABG Glucose VBG pH Oxyhemoglobin Carboxyhemoglobin Sodium Potassium Chloride Carbon Dioxide BUN Creatinine Glucose POC Glucose 116 H 116 H Lactic Acid Calcium Phosphorus Magnesium Total Bilirubin AST ALT Ammonia Lactate Dehydrogenase Total Creatine Kinase CK-MB (CK-2) Troponin T NT-Pro-B Natriuret Pep Total Protein Albumin Triglycerides TSH Arterial Blood Glucose Arterial Blood Ionized Calcium Urine pH Urine WBC (Auto) Urine Creatinine 10/13/20 10/14/20 10/14/20 17:50 03:45 04:46 WBC 11.1 H RBC Hgb Hct RDW 15.3 H Lymph % (Auto) [place] % (Auto) Lymph # (Auto) [place] # (Auto) Seg Neutrophils % Lymphocytes % (Manual) Monocytes % (Manual) Seg Neutrophils # Seg Neutrophils # Man Lymphocytes # (Manual) Monocytes # (Manual) D-Dimer Heparin Anti-Xa Level ABG pH POC ABG pCO2 59.6 H POC ABG pO2 ABG pO2 ABG HCO3 ABG O2 Saturation ABG Base Excess ABG Hemoglobin ABG Oxyhemoglobin ABG Sodium 151.4 H ABG Potassium 3.3 L ABG Chloride ABG Glucose 138 H VBG pH Oxyhemoglobin Carboxyhemoglobin 1.6 H Sodium Potassium Chloride Carbon Dioxide BUN Creatinine Glucose POC Glucose 140 H Lactic Acid Calcium Phosphorus Magnesium Total Bilirubin AST ALT Ammonia Lactate Dehydrogenase Total Creatine Kinase CK-MB (CK-2) Troponin T NT-Pro-B Natriuret Pep Total Protein Albumin Triglycerides TSH Arterial Blood Glucose 138 H Arterial Blood Ionized Calcium 4.5 L Urine pH Urine WBC (Auto) Urine Creatinine 10/14/20 10/14/20 10/14/20 04:46 05:10 11:11 WBC RBC Hgb Hct RDW Lymph % (Auto) [place] % (Auto) Lymph # (Auto) [place] # (Auto) Seg Neutrophils % Lymphocytes % (Manual) Monocytes % (Manual) Seg Neutrophils # Seg Neutrophils # Man Lymphocytes # (Manual) Monocytes # (Manual) D-Dimer Heparin Anti-Xa Level ABG pH POC ABG pCO2 POC ABG pO2 ABG pO2 ABG HCO3 ABG O2 Saturation ABG Base Excess ABG Hemoglobin ABG Oxyhemoglobin ABG Sodium ABG Potassium ABG Chloride ABG Glucose VBG pH Oxyhemoglobin Carboxyhemoglobin Sodium 152 H Potassium 3.5 L Chloride Carbon Dioxide 38 H D BUN 46 H Creatinine 2.3 H Glucose 127 H POC Glucose 116 H 114 H Lactic Acid Calcium Phosphorus Magnesium Total Bilirubin AST ALT Ammonia Lactate Dehydrogenase Total Creatine Kinase CK-MB (CK-2) Troponin T NT-Pro-B Natriuret Pep Total Protein Albumin Triglycerides TSH Arterial Blood Glucose Arterial Blood Ionized Calcium Urine pH Urine WBC (Auto) Urine Creatinine 10/14/20 10/14/20 10/15/20 18:53 23:23 04:12 WBC RBC Hgb Hct RDW Lymph % (Auto) [place] % (Auto) Lymph # (Auto) [place] # (Auto) Seg Neutrophils % Lymphocytes % (Manual) Monocytes % (Manual) Seg Neutrophils # Seg Neutrophils # Man Lymphocytes # (Manual) Monocytes # (Manual) D-Dimer Heparin Anti-Xa Level ABG pH POC ABG pCO2 POC ABG pO2 ABG pO2 ABG HCO3 ABG O2 Saturation ABG Base Excess ABG Hemoglobin ABG Oxyhemoglobin ABG Sodium ABG Potassium ABG Chloride ABG Glucose VBG pH Oxyhemoglobin Carboxyhemoglobin Sodium 149 H Potassium 3.2 L Chloride Carbon Dioxide 37 H BUN 40 H Creatinine 2.0 H Glucose 124 H POC Glucose 128 H 113 H Lactic Acid Calcium Phosphorus Magnesium Total Bilirubin AST ALT Ammonia Lactate Dehydrogenase Total Creatine Kinase CK-MB (CK-2) Troponin T NT-Pro-B Natriuret Pep Total Protein Albumin Triglycerides TSH Arterial Blood Glucose Arterial Blood Ionized Calcium Urine pH Urine WBC (Auto) Urine Creatinine 10/15/20 10/15/20 10/15/20 04:22 11:39 17:36 WBC RBC Hgb Hct RDW Lymph % (Auto) [place] % (Auto) Lymph # (Auto) [place] # (Auto) Seg Neutrophils % Lymphocytes % (Manual) Monocytes % (Manual) Seg Neutrophils # Seg Neutrophils # Man Lymphocytes # (Manual) Monocytes # (Manual) D-Dimer Heparin Anti-Xa Level ABG pH POC ABG pCO2 POC ABG pO2 ABG pO2 115.0 H ABG HCO3 38.1 H ABG O2 Saturation ABG Base Excess 11.3 H ABG Hemoglobin 11.0 L ABG Oxyhemoglobin ABG Sodium ABG Potassium ABG Chloride ABG Glucose VBG pH Oxyhemoglobin Carboxyhemoglobin Sodium Potassium Chloride Carbon Dioxide BUN Creatinine Glucose POC Glucose 123 H 118 H Lactic Acid Calcium Phosphorus Magnesium Total Bilirubin AST ALT Ammonia Lactate Dehydrogenase Total Creatine Kinase CK-MB (CK-2) Troponin T NT-Pro-B Natriuret Pep Total Protein Albumin Triglycerides TSH Arterial Blood Glucose Arterial Blood Ionized Calcium Urine pH Urine WBC (Auto) Urine Creatinine 10/15/20 10/16/20 10/16/20 23:18 03:13 05:10 WBC RBC Hgb Hct RDW Lymph % (Auto) [place] % (Auto) Lymph # (Auto) [place] # (Auto) Seg Neutrophils % Lymphocytes % (Manual) Monocytes % (Manual) Seg Neutrophils # Seg Neutrophils # Man Lymphocytes # (Manual) Monocytes # (Manual) D-Dimer Heparin Anti-Xa Level ABG pH POC ABG pCO2 POC ABG pO2 ABG pO2 104.5 H ABG HCO3 35.1 H ABG O2 Saturation ABG Base Excess 9.5 H ABG Hemoglobin 7.9 L ABG Oxyhemoglobin ABG Sodium ABG Potassium ABG Chloride ABG Glucose VBG pH Oxyhemoglobin Carboxyhemoglobin Sodium Potassium 3.3 L Chloride Carbon Dioxide 33 H BUN 37 H Creatinine 1.4 H Glucose 148 H POC Glucose 135 H Lactic Acid Calcium Phosphorus Magnesium 2.40 H Total Bilirubin AST ALT Ammonia Lactate Dehydrogenase Total Creatine Kinase CK-MB (CK-2) Troponin T NT-Pro-B Natriuret Pep Total Protein Albumin Triglycerides TSH Arterial Blood Glucose Arterial Blood Ionized Calcium Urine pH Urine WBC (Auto) Urine Creatinine 10/16/20 10/16/20 10/16/20 06:36 11:08 17:07 WBC RBC Hgb Hct RDW Lymph % (Auto) [place] % (Auto) Lymph # (Auto) [place] # (Auto) Seg Neutrophils % Lymphocytes % (Manual) Monocytes % (Manual) Seg Neutrophils # Seg Neutrophils # Man Lymphocytes # (Manual) Monocytes # (Manual) D-Dimer Heparin Anti-Xa Level ABG pH POC ABG pCO2 POC ABG pO2 ABG pO2 ABG HCO3 ABG O2 Saturation ABG Base Excess ABG Hemoglobin ABG Oxyhemoglobin ABG Sodium ABG Potassium ABG Chloride ABG Glucose VBG pH Oxyhemoglobin Carboxyhemoglobin Sodium Potassium Chloride Carbon Dioxide BUN Creatinine Glucose POC Glucose 150 H 111 H 132 H Lactic Acid Calcium Phosphorus Magnesium Total Bilirubin AST ALT Ammonia Lactate Dehydrogenase Total Creatine Kinase CK-MB (CK-2) Troponin T NT-Pro-B Natriuret Pep Total Protein Albumin Triglycerides TSH Arterial Blood Glucose Arterial Blood Ionized Calcium Urine pH Urine WBC (Auto) Urine Creatinine 10/16/20 10/17/20 10/17/20 23:38 03:32 03:32 WBC RBC Hgb Hct RDW Lymph % (Auto) [place] % (Auto) Lymph # (Auto) [place] # (Auto) Seg Neutrophils % Lymphocytes % (Manual) Monocytes % (Manual) Seg Neutrophils # Seg Neutrophils # Man Lymphocytes # (Manual) Monocytes # (Manual) D-Dimer Heparin Anti-Xa Level ABG pH POC ABG pCO2 POC ABG pO2 ABG pO2 ABG HCO3 ABG O2 Saturation ABG Base Excess ABG Hemoglobin ABG Oxyhemoglobin ABG Sodium ABG Potassium ABG Chloride ABG Glucose VBG pH Oxyhemoglobin Carboxyhemoglobin Sodium 146 H Potassium Chloride Carbon Dioxide 32 H BUN 57 H Creatinine 2.4 H D Glucose 124 H POC Glucose 117 H Lactic Acid Calcium Phosphorus 5.20 H D Magnesium Total Bilirubin AST ALT Ammonia Lactate Dehydrogenase Total Creatine Kinase CK-MB (CK-2) Troponin T NT-Pro-B Natriuret Pep Total Protein Albumin Triglycerides TSH Arterial Blood Glucose Arterial Blood Ionized Calcium Urine pH Urine WBC (Auto) Urine Creatinine 10/17/20 10/17/20 10/18/20 05:10 17:33 00:13 WBC RBC Hgb Hct RDW Lymph % (Auto) [place] % (Auto) Lymph # (Auto) [place] # (Auto) Seg Neutrophils % Lymphocytes % (Manual) Monocytes % (Manual) Seg Neutrophils # Seg Neutrophils # Man Lymphocytes # (Manual) Monocytes # (Manual) D-Dimer Heparin Anti-Xa Level ABG pH POC ABG pCO2 POC ABG pO2 ABG pO2 ABG HCO3 ABG O2 Saturation ABG Base Excess ABG Hemoglobin ABG Oxyhemoglobin ABG Sodium ABG Potassium ABG Chloride ABG Glucose VBG pH Oxyhemoglobin Carboxyhemoglobin Sodium Potassium Chloride Carbon Dioxide BUN Creatinine Glucose POC Glucose 122 H 121 H 23 L Lactic Acid Calcium Phosphorus Magnesium Total Bilirubin AST ALT Ammonia Lactate Dehydrogenase Total Creatine Kinase CK-MB (CK-2) Troponin T NT-Pro-B Natriuret Pep Total Protein Albumin Triglycerides TSH Arterial Blood Glucose Arterial Blood Ionized Calcium Urine pH Urine WBC (Auto) Urine Creatinine 10/18/20 10/18/20 10/18/20 00:16 03:27 03:27 WBC RBC Hgb 11.7 L Hct RDW Lymph % (Auto) [place] % (Auto) Lymph # (Auto) [place] # (Auto) Seg Neutrophils % Lymphocytes % (Manual) Monocytes % (Manual) Seg Neutrophils # Seg Neutrophils # Man Lymphocytes # (Manual) Monocytes # (Manual) D-Dimer Heparin Anti-Xa Level ABG pH POC ABG pCO2 POC ABG pO2 ABG pO2 ABG HCO3 ABG O2 Saturation ABG Base Excess ABG Hemoglobin ABG Oxyhemoglobin ABG Sodium ABG Potassium ABG Chloride ABG Glucose VBG pH Oxyhemoglobin Carboxyhemoglobin Sodium Potassium Chloride 97.6 L Carbon Dioxide BUN 90 H Creatinine 3.3 H Glucose 146 H POC Glucose 134 H Lactic Acid Calcium Phosphorus Magnesium Total Bilirubin 1.70 H AST ALT Ammonia Lactate Dehydrogenase Total Creatine Kinase CK-MB (CK-2) Troponin T NT-Pro-B Natriuret Pep Total Protein Albumin 3.1 L Triglycerides TSH Arterial Blood Glucose Arterial Blood Ionized Calcium Urine pH Urine WBC (Auto) Urine Creatinine 10/18/20 10/18/20 10/18/20 05:09 11:19 17:15 WBC RBC Hgb Hct RDW Lymph % (Auto) [place] % (Auto) Lymph # (Auto) [place] # (Auto) Seg Neutrophils % Lymphocytes % (Manual) Monocytes % (Manual) Seg Neutrophils # Seg Neutrophils # Man Lymphocytes # (Manual) Monocytes # (Manual) D-Dimer Heparin Anti-Xa Level ABG pH POC ABG pCO2 POC ABG pO2 ABG pO2 ABG HCO3 ABG O2 Saturation ABG Base Excess ABG Hemoglobin ABG Oxyhemoglobin ABG Sodium ABG Potassium ABG Chloride ABG Glucose VBG pH Oxyhemoglobin Carboxyhemoglobin Sodium Potassium Chloride Carbon Dioxide BUN Creatinine Glucose POC Glucose 144 H 145 H 151 H Lactic Acid Calcium Phosphorus Magnesium Total Bilirubin AST ALT Ammonia Lactate Dehydrogenase Total Creatine Kinase CK-MB (CK-2) Troponin T NT-Pro-B Natriuret Pep Total Protein Albumin Triglycerides TSH Arterial Blood Glucose Arterial Blood Ionized Calcium Urine pH Urine WBC (Auto) Urine Creatinine 10/18/20 10/18/20 10/19/20 23:16 Unknown 04:55 WBC RBC Hgb Hct RDW Lymph % (Auto) [place] % (Auto) Lymph # (Auto) [place] # (Auto) Seg Neutrophils % Lymphocytes % (Manual) Monocytes % (Manual) Seg Neutrophils # Seg Neutrophils # Man Lymphocytes # (Manual) Monocytes # (Manual) D-Dimer Heparin Anti-Xa Level ABG pH POC ABG pCO2 POC ABG pO2 ABG pO2 ABG HCO3 ABG O2 Saturation ABG Base Excess ABG Hemoglobin ABG Oxyhemoglobin ABG Sodium ABG Potassium ABG Chloride ABG Glucose VBG pH Oxyhemoglobin Carboxyhemoglobin Sodium Potassium Chloride Carbon Dioxide BUN 104 H Creatinine 3.1 H Glucose 139 H POC Glucose 123 H Lactic Acid Calcium Phosphorus Magnesium Total Bilirubin AST ALT Ammonia Lactate Dehydrogenase Total Creatine Kinase CK-MB (CK-2) Troponin T NT-Pro-B Natriuret Pep Total Protein Albumin Triglycerides TSH Arterial Blood Glucose Arterial Blood Ionized Calcium Urine pH Urine WBC (Auto) 115.0 H Urine Creatinine 10/19/20 10/19/20 10/19/20 04:55 11:35 13:14 WBC 15.1 H RBC Hgb 11.1 L Hct 34.4 L RDW Lymph % (Auto) 4.2 L [place] % (Auto) 11.9 H Lymph # (Auto) 0.6 L [place] # (Auto) 1.8 H Seg Neutrophils % 82.0 H Lymphocytes % (Manual) Monocytes % (Manual) Seg Neutrophils # 12.4 H Seg Neutrophils # Man Lymphocytes # (Manual) Monocytes # (Manual) D-Dimer Heparin Anti-Xa Level ABG pH POC ABG pCO2 POC ABG pO2 ABG pO2 ABG HCO3 ABG O2 Saturation ABG Base Excess ABG Hemoglobin ABG Oxyhemoglobin ABG Sodium ABG Potassium ABG Chloride ABG Glucose VBG pH Oxyhemoglobin Carboxyhemoglobin Sodium Potassium Chloride Carbon Dioxide BUN Creatinine Glucose POC Glucose 136 H Lactic Acid Calcium Phosphorus Magnesium Total Bilirubin AST ALT Ammonia Lactate Dehydrogenase Total Creatine Kinase CK-MB (CK-2) Troponin T NT-Pro-B Natriuret Pep Total Protein Albumin Triglycerides TSH Arterial Blood Glucose Arterial Blood Ionized Calcium Urine pH Urine WBC (Auto) Urine Creatinine 93.7 H 10/19/20 10/19/20 10/20/20 17:53 23:39 04:30 WBC RBC Hgb Hct RDW Lymph % (Auto) [place] % (Auto) Lymph # (Auto) [place] # (Auto) Seg Neutrophils % Lymphocytes % (Manual) Monocytes % (Manual) Seg Neutrophils # Seg Neutrophils # Man Lymphocytes # (Manual) Monocytes # (Manual) D-Dimer Heparin Anti-Xa Level ABG pH POC ABG pCO2 POC ABG pO2 ABG pO2 ABG HCO3 ABG O2 Saturation ABG Base Excess ABG Hemoglobin ABG Oxyhemoglobin ABG Sodium ABG Potassium ABG Chloride ABG Glucose VBG pH Oxyhemoglobin Carboxyhemoglobin Sodium Potassium Chloride Carbon Dioxide BUN 104 H Creatinine 2.8 H Glucose 151 H POC Glucose 137 H 133 H Lactic Acid Calcium Phosphorus Magnesium Total Bilirubin AST ALT Ammonia Lactate Dehydrogenase Total Creatine Kinase CK-MB (CK-2) Troponin T NT-Pro-B Natriuret Pep Total Protein Albumin Triglycerides TSH Arterial Blood Glucose Arterial Blood Ionized Calcium Urine pH Urine WBC (Auto) Urine Creatinine 10/20/20 10/20/20 04:30 05:38 WBC 17.9 H RBC Hgb 11.7 L Hct RDW Lymph % (Auto) [place] % (Auto) Lymph # (Auto) [place] # (Auto) Seg Neutrophils % Lymphocytes % (Manual) Monocytes % (Manual) Seg Neutrophils # Seg Neutrophils # Man Lymphocytes # (Manual) Monocytes # (Manual) D-Dimer Heparin Anti-Xa Level ABG pH POC ABG pCO2 POC ABG pO2 ABG pO2 ABG HCO3 ABG O2 Saturation ABG Base Excess ABG Hemoglobin ABG Oxyhemoglobin ABG Sodium ABG Potassium ABG Chloride ABG Glucose VBG pH Oxyhemoglobin Carboxyhemoglobin Sodium Potassium Chloride Carbon Dioxide BUN Creatinine Glucose POC Glucose 164 H Lactic Acid Calcium Phosphorus Magnesium Total Bilirubin AST ALT Ammonia Lactate Dehydrogenase Total Creatine Kinase CK-MB (CK-2) Troponin T NT-Pro-B Natriuret Pep Total Protein Albumin Triglycerides TSH Arterial Blood Glucose Arterial Blood Ionized Calcium Urine pH Urine WBC (Auto) Urine Creatinine Chest x-ray: image reviewed (improving infiltrates) Allied health notes reviewed: nursing
[2020-10-20] MEDS ORDERED: AMIODARONE 150 MG in DEXTROSE 5% IN WATER 97 ML IV ONE (12:46)
--- NOTE | 2020-10-20 12:46 | Progress Note ---
Assessment and Plan Pt remains intubated, not sedated, intermittent blinking of eyes to painful stimulus (sternal rub) noted. tele reviewed - pt noted to develop AFib/AFlutter RVR HR 130s overnight, currently in AFib/AFlutter HR 100s. Optimize HR - increase PO lopressor and initiate IV amio. Recommend neurology re-evaluation - d/w primary team. Consider initiation of systemic AC in regards to AFib/AFlutter if no contraindications from neurological perspective. Renal indices remain elevated - follow nephrology recs. Continue supportive measures. Overall guarded prognosis. The patient has been seen in conjunction with Dr. Mercedes who agrees with the assessment and plan of care. - Patient Problems (1) AMS (altered mental status) Current Visit: Yes Status: Acute (2) Cardiopulmonary arrest with successful resuscitation Current Visit: Yes Status: Acute (3) Acute respiratory failure Current Visit: Yes Status: Acute Qualifiers: Respiratory failure complication: hypoxia and hypercapnia Qualified Code(s): J96.01 - Acute respiratory failure with hypoxia; J96.02 - Acute respiratory failure with hypercapnia (4) Bilateral pneumonia Current Visit: Yes Status: Acute (5) Sepsis with hypotension Current Visit: Yes Status: Acute (6) Person under investigation for COVID-19 Current Visit: Yes Status: Ruled-out (7) Seizure Current Visit: Yes Status: Suspected (8) NSTEMI (non-ST elevated myocardial infarction) Current Visit: Yes Status: Acute (9) MOE (acute kidney injury) Current Visit: Yes Status: Acute (10) GI bleed Current Visit: Yes Status: Acute (11) Acute heart failure with preserved ejection fraction (HFpEF) Current Visit: Yes Status: Acute (12) Hypernatremia Current Visit: Yes Status: Acute (13) Atrial fibrillation and flutter Current Visit: Yes Status: Acute Subjective Date of service: 10/20/20 Principal diagnosis: Cardiac arrest; Septic Shock; Ac. hypoxemic & hypercapnic resp failure; MOE Interval history: pt remains intubated, not sedated, intermittent blinking of eyes to painful stimulus (sternal rub) noted. tele reviewed - pt noted to develop AFib/AFlutter RVR HR 130s overnight, currently in AFib/AFlutter HR 100s. Objective Last Vital Signs Temp 100.5 F H 10/20/20 12:00 Pulse 110 H 10/20/20 12:15 Resp 12 10/20/20 12:15 BP 120/69 10/20/20 12:15 Pulse Ox 95 10/20/20 12:15 - Physical Examination General: Other (intubated) HEENT: Positive: Normocephaly Neck: Positive: neck supple, trachea midline Cardiac: Positive: irregularly irregular, S1/S2 Lungs: Positive: Decreased Breath Sounds Neuro: Positive: Other (intubated) Abdomen: Positive: Soft Skin: Negative: Rash Extremities: Present: lower extr. pulses. Absent: edema - Labs and Meds CBC 10/20/20 Range/Units 04:30 WBC 17.9 H (4.5-11.0) K/mm3 RBC 4.06 (3.65-5.03) M/mm3 Hgb 11.7 L (11.8-15.2) gm/dl Hct 35.8 (35.5-45.6) % Plt Count 267 (140-440) K/mm3 Comprehensive Metabolic Panel 10/20/20 Range/Units 04:30 Sodium 141 (137-145) mmol/L Potassium 3.7 (3.6-5.0) mmol/L Chloride 99.6 (98-107) mmol/L Carbon Dioxide 29 (22-30) mmol/L BUN 104 H (9-20) mg/dL Creatinine 2.8 H (0.8-1.3) mg/dL Glucose 151 H (75-100) mg/dL Calcium 9.5 (8.4-10.2) mg/dL - Imaging and Cardiology EKG: report reviewed, image reviewed Echo: report reviewed (10/10/2020 - mod LVH, EF 55-60%, mild diastolic dysfunction) - Telemetry EKG Rhythm: Atrial Fibrillation - EKG Sinus rhythms and dysrhythmias: sinus rhythm Repolarization changes or abnormalities: ST suggestive of injury, Q-T interval prolongation - Allied health notes Allied health notes reviewed: nursing
[2020-10-20] MEDS: LINEZOLID 600 MG/300 ML BAG IV SCH ×2 (12:48→22:25)
[2020-10-20] MEDS ORDERED: SODIUM CHLORIDE 0.9% 1000 ML 1,000 ML ONE (13:27)
[2020-10-20] MEDS ORDERED: AMIODARONE 900 MG in DEXTROSE 5% IN WATER 482 ML IV SCH (14:00)
[2020-10-20] MEDS: SODIUM CHLORIDE 0.9% 1000 ML 1,000 ML IV SCH (14:08)
--- NOTE | 2020-10-20 15:23 | Progress Note ---
Assessment and Plan Assessment and plan: -Infectious disease, CCM, GI, nephrology, cardiology consulted, patient recommendations -Antibiotic therapy -10/18 recultured (blood/sputum/nasal discharge and urinalysis), tracheal aspirate with MRSA -Linezolid -Continue antihypertensive regimen (changed to p.o.), titrate as needed -IV amiodarone for A. fib/a flutter with p.o. beta-shital -Trend CBC, BMP -Urinary suggestive of prerenal, normal saline for 3 L -Continue mechanical ventilation, wean as tolerated, VAP bundle -Avoid nephrotoxic medications, strict intake and output, renal ultrasound shows no obstruction -Trend LFTs -10/10 echocardiogram shows left internal systolic function normal, moderate concentric left ventricle hypertrophy, mild to side diastolic dysfunction, LVEF 55 to 60% with no pericardial effusion -Bilateral Doppler ultrasound negative for DVT/SVT which shows bilateral popliteal cysts GI/DVT prophylaxis: SCDs to bilateral lower extremities while in bed, PPI, Heparin subq Dispo: ICU The high probability of a clinically significant, sudden or life threatening deterioration of the [multi] system(s) required my full and direct attention, intervention and personal management. The aggregate critical care time was [35] minutes. This time is in addition to time spent performing reported procedures but includes the following: [x] Data Review and interpretation [x] Patient assessment and monitoring of vital signs [x] Documentation [x] Medication orders and management History Interval history: This is a 55-year-old male with hypertension, asthma, obesity in the emergency by presents the emergency department on 10/10 after receiving a Covid vaccine being found unresponsive in his car in the emergency room by with no pulse and ACLS protocol was initiated from his car to emergency room #21 where it was continued. Patient was intubated after ROSC was achieved and a central line was placed and the patient was initiated on pressors. In the emergency room patient seems to have seizure-like activity and then collapsed and was unresponsive with no palpable pulse and ACLS was again initiated patient with achievement of ROSC. Patient again coded with ACLS protocol in the CT room. Upon arrival to the ICU patient again coded and ROSC was achieved and he was placed on epinephrine, Lasix, heparin and sodium bicarbonate drip and sedated with propofol. An NG tube was placed, A-line was placed. Patient was admitted to the hospitalist service with consult to CCM, nephrology, infectious disease and cardiology. 10/11: Patient COVID-19 PCR is pending and he remains on mechanical ventilation, examination on assist control 400/30/12/0.95. Patient is scheduled for an echocardiogram and we will obtain bilateral lower extremity Doppler ultrasound given elevated D-dimer. Patient was supposed to have a CTA chest when he coded yesterday. We will begin trickle feeding. This morning patient was on a heparin drip and was noted to have bloody drainage from his NG tube. Heparin drip was discontinued. 10/12: Patient remains on propofol and Lasix drip at the time my examination and he is on assist control 400/25/12/0.60. Patient is hypokalemic this morning which was repleted. Nephrlogy discontinued Lasix drip and Diamox. Patient is hypertensive and has been started on hydralazine and beta-shital IV. He has been titrated off his vasopressors since yesterday. Vancomycin discontinued. Patient is currently on cefepime and azithromycin. 10/13: Sedation vacation attempted today and patient was not responsive to verbal or painful stimuli, does not track or focus or follow commands. This morning the patient has some respiratory alkalosis on ABG, hypernatremia and metabolic alkalosis on BMP. His kidney functions has improved slightly. Patient still has leukocytosis and infectious disease was like to continue antibiotic therapy. GI evaluated the patient yesterday and started the patient on PPI does not plan to scope at this time. At the time my examination patient assist-control 400/20/12/0.40 and sedated on propofol at 20. 4/: GI has recommended a CT abdomen since there is increased output from OG tube and an MRI brain without contrast has been ordered per neurology recommendations. EEG is pending and the patient has been started on Keppra per neurology.. Nutrition has been consulted for initiation of parenteral nutrition. Patient remains sedated with propofol and his hypernatremia, leukocytosis, acute kidney injury and metabolic alkalosis is improving. Patient has hypokalemia today which was repleted. At the time of my examination patient was on assist control 400/14/10/0.40 and [facility] has dropped his rate to 12 and PEEP to 8. We have labs ordered for a.m. He was given a clonidine patch given persistent hypertension and he remains on D5 water per nephrology. 10/15: This morning patient was started to have a low-grade fever and he will continue antibiotic therapy per infectious disease. He will remove Tuttle catheter today and place a condom cath. Patient's renal function is worsening with a BUN/creatinine of 57/2.4 today and he has hyperphosphatemia at 5.2. This morning the time my examination patient is sedated on fentanyl and has TPN infusing. He is on assist control 400/12/8/0.35. Per GI we will start trial of tube feedings initiation has been reconsulted for orders. 10/18: Patient was febrile overnight and infectious disease has recultured (blood/sputum/right nostril culture) and sent in urinalysis. Cefepime was extended due to high fever and was started on vancomycin. Tube feeding is at goal and we will discontinue his parenteral nutrition. Patient is unable to obtain his MRI due to increased hypoxia and nasal secretions. He will be started on CPAP trials today. This time I examination patient was sedated on fentanyl and had PPN running at 42. His renal function tests have worsened and now has hyperchloremia. Hypernatremia has resolved. 10/19: Patient's T-max was 100.2 and he was pancultured yesterday, remains on antibiotic therapy and still has copious drainage from his nostrils. Patient still has leukocytosis however his/creatinine improved slightly to 3.1 from 3.3. Patient's urinalysis from yesterday shows pyuria. Patient's tracheal aspirate from yesterday grew Staph aureus. Patient is on cefepime and vancomycin. 10/20: This morning at the time my examination patient was CPAP trial of 6 and his T-max was 100.9. Patient sedated on fentanyl at 2 just received IV push fen tanyl for tachycardia. Today his creatinine is 2.8 from 3.1 yesterday. Infectious disease has stopped cefepime and vancomycin and started linezolid and MRSA PCR is pending. Today removed his NG tube and replaced it with OG tube. We will keep the patient normal saline at 75 mL's per hour for 3 L. Patient developed A. fib/a flutter overnight and cardiology has increased his Lopressor and IV amiodarone. We requested neurology evaluation today. Sepsis Right-sided pneumonia MRSA in tracheal aspirate NSTEMI type II Acute heart failure Leukocytosis Acute hypoxic respiratory failure Acute kidney injury Transaminitis HTN Obesity Hospitalist Physical - Constitutional Vitals: Temp Pulse Resp BP Pulse Ox 100.5 F H 93 H 9 L 128/71 93 10/20/20 12:00 10/20/20 14:15 10/20/20 14:15 10/20/20 14:15 10/20/20 14:15 General appearance: Present: no acute distress, well-nourished, other (Resting comfortably on mechanical ventilation, opens eye spontanously) - EENT Eyes: Present: PERRL ENT: clear oral mucosa, other (Copious nasal secretions) - Neck Neck: Present: normal ROM - Respiratory Respiratory effort: normal Respiratory: bilateral: diminished - Cardiovascular Rhythm: irregularly irregular Heart Sounds: Present: S1 & S2. Absent: systolic murmur, diastolic murmur - Extremities Extremities: no ischemia, pulses intact, pulses symmetrical, normal temperature, normal color Extremity abnormal: edema Peripheral Pulses: within normal limits - Abdominal General gastrointestinal: soft, non-tender, non-distended, normal bowel sounds - Integumentary Integumentary: Present: warm, dry - Psychiatric Psychiatric: other (Unresponsive to painful stimuli, spontaneously open eyes) - Neurologic Neurologic: other (Spontaneously open eyes, unable to follow commands, spontaneously move all extremities) - Allied Health Allied health notes reviewed: nursing, RT, social work HEART Score - HEART Score EKG: Non-specific Age: 45-65 Troponin: Troponin T 0.125 ng/mL (0.00-0.029) H* D 10/12/20 04:00 Troponin: 1-3x normal limit - Critical Actions Critical Actions: 4-6 pts:12-16.6% risk of adverse cardiac event. Should be admitted Results - Labs CBC & Chem 7: 10/20/20 04:30 10/20/20 04:30 Labs: Laboratory Last Values WBC 17.9 K/mm3 (4.5-11.0) H 10/20/20 04:30 RBC 4.06 M/mm3 (3.65-5.03) 10/20/20 04:30 Hgb 11.7 gm/dl (11.8-15.2) L 10/20/20 04:30 Hct 35.8 % (35.5-45.6) 10/20/20 04:30 MCV 88 fl (84-94) 10/20/20 04:30 MCH 29 pg (28-32) 10/20/20 04:30 MCHC 33 % (32-34) 10/20/20 04:30 RDW 14.4 % (13.2-15.2) 10/20/20 04:30 Plt Count 267 K/mm3 (140-440) 10/20/20 04:30 Lymph % (Auto) 4.2 % (13.4-35.0) L 10/19/20 04:55 [place] % (Auto) 11.9 % (0.0-7.3) H 10/19/20 04:55 Eos % (Auto) 1.6 % (0.0-4.3) 10/19/20 04:55 Baso % (Auto) 0.3 % (0.0-1.8) 10/19/20 04:55 Lymph # (Auto) 0.6 K/mm3 (1.2-5.4) L 10/19/20 04:55 Cooper # (Auto) 1.8 K/mm3 (0.0-0.8) H 10/19/20 04:55 Eos # (Auto) 0.2 K/mm3 (0.0-0.4) 10/19/20 04:55 Baso # (Auto) 0.1 K/mm3 (0.0-0.1) 10/19/20 04:55 Add Manual Diff Complete 10/10/20 18:18 Total Counted 100 10/10/20 18:18 Seg Neutrophils % 82.0 % (40.0-70.0) H 10/19/20 04:55 Seg Neuts % (Manual) 60.0 % (40.0-70.0) 10/10/20 18:18 Band Neutrophils % 27.0 % 10/10/20 18:18 Lymphocytes % (Manual) 4.0 % (13.4-35.0) L 10/10/20 18:18 Monocytes % (Manual) 9.0 % (0.0-7.3) H 10/10/20 18:18 Eosinophils % (Manual) 4.0 % (0.0-4.3) 10/10/20 10:48 Metamyelocytes % 1.0 % 10/10/20 10:48 Nucleated RBC % Not Reportable 10/10/20 18:18 Seg Neutrophils # 12.4 K/mm3 (1.8-7.7) H 10/19/20 04:55 Seg Neutrophils # Man 13.8 K/mm3 (1.8-7.7) H 10/10/20 18:18 Band Neutrophils # 6.2 K/mm3 10/10/20 18:18 Lymphocytes # (Manual) 0.9 K/mm3 (1.2-5.4) L 10/10/20 18:18 Abs React Lymphs (Man) 0.0 K/mm3 10/10/20 18:18 Monocytes # (Manual) 2.1 K/mm3 (0.0-0.8) H 10/10/20 18:18 Eosinophils # (Manual) 0.0 K/mm3 (0.0-0.4) 10/10/20 18:18 Basophils # (Manual) 0.0 K/mm3 (0.0-0.1) 10/10/20 18:18 Metamyelocytes # 0.0 K/mm3 10/10/20 18:18 Myelocytes # 0.0 K/mm3 10/10/20 18:18 Promyelocytes # 0.0 K/mm3 10/10/20 18:18 Blast Cells # 0.0 K/mm3 10/10/20 18:18 WBC Morphology Not Reportable 10/10/20 18:18 Hypersegmented Neuts Not Reportable 10/10/20 18:18 Hyposegmented Neuts Not Reportable 10/10/20 18:18 Hypogranular Neuts Not Reportable 10/10/20 18:18 Smudge Cells Not Reportable 10/10/20 18:18 Toxic Granulation Not Reportable 10/10/20 18:18 Toxic Vacuolation Not Reportable 10/10/20 18:18 Dohle Bodies Not Reportable 10/10/20 18:18 Pelger-Huet Anomaly Not Reportable 10/10/20 18:18 Dionicio Rods Not Reportable 10/10/20 18:18 Platelet Estimate Consistent w auto 10/10/20 18:18 Clumped Platelets Not Reportable 10/10/20 18:18 Plt Clumps, EDTA Not Reportable 10/10/20 18:18 Large Platelets Rare 10/10/20 18:18 Giant Platelets Rare 10/10/20 18:18 Platelet Satelliting Not Reportable 10/10/20 18:18 Plt Morphology Comment Not Reportable 10/10/20 18:18 RBC Morphology Not Reportable 10/10/20 18:18 Dimorphic RBCs Not Reportable 10/10/20 18:18 Polychromasia Not Reportable 10/10/20 18:18 Hypochromasia Not Reportable 10/10/20 18:18 Poikilocytosis Not Reportable 10/10/20 18:18 Anisocytosis Not Reportable 10/10/20 18:18 Microcytosis Not Reportable 10/10/20 18:18 Macrocytosis Not Reportable 10/10/20 18:18 Spherocytes Not Reportable 10/10/20 18:18 Pappenheimer Bodies Not Reportable 10/10/20 18:18 Sickle Cells Not Reportable 10/10/20 18:18 Target Cells Not Reportable 10/10/20 18:18 Tear Drop Cells Not Reportable 10/10/20 18:18 Ovalocytes Not Reportable 10/10/20 18:18 Helmet Cells Not Reportable 10/10/20 18:18 Medley-Paa-Ko Bodies Not Reportable 10/10/20 18:18 [place] Rings Not Reportable 10/10/20 18:18 Adelfo Cells Not Reportable 10/10/20 18:18 Bite Cells Not Reportable 10/10/20 18:18 Crenated Cell Not Reportable 10/10/20 18:18 Elliptocytes Not Reportable 10/10/20 18:18 Acanthocytes (Spur) Not Reportable 10/10/20 18:18 Rouleaux Not Reportable 10/10/20 18:18 Hemoglobin C Crystals Not Reportable 10/10/20 18:18 Schistocytes Not Reportable 10/10/20 18:18 Malaria parasites Not Reportable 10/10/20 18:18 Mauricio Bodies Not Reportable 10/10/20 18:18 Hem Pathologist Commnt No 10/10/20 18:18 PT 13.8 Sec. (12.2-14.9) 10/10/20 18:18 INR 1.07 (0.87-1.13) 10/10/20 18:18 APTT 26.9 Sec. (24.2-36.6) 10/10/20 18:18 D-Dimer 679.5 ng/mlDDU (0-234) H 10/10/20 10:48 Heparin Anti-Xa Level 0.22 U.I./ml (0.3-0.7) L 10/11/20 08:35 ABG pH 7.419 pH Units (7.350-7.450) 10/16/20 05:10 POC ABG pCO2 59.6 mmHg (32.0-48.0) H 10/14/20 03:45 ABG pCO2 55.5 mm Hg 10/16/20 05:10 POC ABG pO2 93.3 mmHg (83-108) 10/14/20 03:45 ABG pO2 104.5 mm Hg (80.0-90.0) H 10/16/20 05:10 POC ABG HCO3 40.3 10/14/20 03:45 ABG HCO3 35.1 mmol/L (20.0-26.0) H 10/16/20 05:10 ABG O2 Saturation 97.7 % (95.0-99.0) 10/16/20 05:10 ABG O2 Content 10.8 (0.0-44) 10/16/20 05:10 POC ABG Base Excess 13.8 10/14/20 03:45 ABG Base Excess 9.5 mmol/L (-2.0-3.0) H 10/16/20 05:10 ABG Hemoglobin 7.9 gm/dl (14.0-18.0) L 10/16/20 05:10 ABG Oxyhemoglobin 95.8 (94-98) 10/14/20 03:45 ABG Carboxyhemoglobin 1.9 % (0.0-5.0) 10/16/20 05:10 ABG Methemoglobin 0.5 % (0.0-1.5) 10/16/20 05:10 ABG Sodium 151.4 mmol/L (136.0-145.0) H 10/14/20 03:45 ABG Potassium 3.3 mmol/L (3.40-4.50) L 10/14/20 03:45 ABG Chloride 105.0 mmol/L (98-107) 10/14/20 03:45 ABG Glucose 138 mg/dL (65-95) H 10/14/20 03:45 VBG pH 6.870 (7.320-7.420) L* 10/10/20 10:48 Oxyhemoglobin 95.3 % (95.0-99.0) 10/16/20 05:10 Carboxyhemoglobin 1.6 (0.5-1.5) H 10/14/20 03:45 FiO2 35 % 10/16/20 05:10 FiO2 % 40 10/14/20 03:45 Sodium 141 mmol/L (137-145) 10/20/20 04:30 Potassium 3.7 mmol/L (3.6-5.0) 10/20/20 04:30 Chloride 99.6 mmol/L (98-107) 10/20/20 04:30 Carbon Dioxide 29 mmol/L (22-30) 10/20/20 04:30 Anion Gap 16 mmol/L 10/20/20 04:30 BUN 104 mg/dL (9-20) H 10/20/20 04:30 Creatinine 2.8 mg/dL (0.8-1.3) H 10/20/20 04:30 Estimated GFR 29 ml/min 10/20/20 04:30 BUN/Creatinine Ratio 37 % 10/20/20 04:30 Glucose 151 mg/dL (75-100) H 10/20/20 04:30 POC Glucose 148 mg/dL (70-105) H 10/20/20 11:34 Hemoglobin A1c 6.0 % (4-6) 10/11/20 02:00 Lactic Acid 1.10 mmol/L (0.7-2.0) 10/13/20 04:52 Calcium 9.5 mg/dL (8.4-10.2) 10/20/20 04:30 Phosphorus 5.20 mg/dL (2.5-4.5) H D 10/17/20 03:32 Magnesium 2.30 mg/dL (1.7-2.3) 10/17/20 03:32 Ferritin 81.4 ng/mL (30.0-300.0) 10/10/20 10:48 Total Bilirubin 1.70 mg/dL (0.1-1.2) H 10/18/20 03:27 AST 37 units/L (5-40) 10/18/20 03:27 ALT 32 units/L (7-56) 10/18/20 03:27 Alkaline Phosphatase 97 units/L (35-129) 10/18/20 03:27 Ammonia 214.0 umol/L (25-60) H 10/10/20 10:46 Lactate Dehydrogenase 386 units/L (91-180) H 10/10/20 10:48 Total Creatine Kinase 1192 units/L (55-170) H 10/10/20 18:18 CK-MB (CK-2) 21.7 ng/mL (0.0-4.0) H 10/10/20 18:18 CK-MB (CK-2) Rel Index 1.8 (0-4) 10/10/20 18:18 Troponin T 0.125 ng/mL (0.00-0.029) H* D 10/12/20 04:00 C-Reactive Protein 0.90 mg/dL (0.00-1.30) 10/10/20 10:48 NT-Pro-B Natriuret Pep 1187 pg/mL (0-900) H 10/10/20 10:46 Total Protein 6.3 g/dL (6.3-8.2) 10/18/20 03:27 Albumin 3.1 g/dL (3.9-5) L 10/18/20 03:27 Albumin/Globulin Ratio 1.0 % 10/18/20 03:27 Triglycerides 278 mg/dL (2-149) H 10/13/20 04:52 Cholesterol 138 mg/dL (50-199) 10/10/20 18:18 LDL Cholesterol Direct 76 mg/dL (50-130) 10/10/20 18:18 HDL Cholesterol 49 mg/dL (40-59) 10/10/20 18:18 Cholesterol/HDL Ratio 2.81 % 10/10/20 18:18 Procalcitonin 4.98 ng/mL (<0.15) 10/15/20 04:12 TSH 6.260 mlU/mL (0.270-4.200) H 10/10/20 10:46 Arterial Blood Glucose 138 mg/dL (65-95) H 10/14/20 03:45 Arterial Blood Ionized Calcium 4.5 mg/dL (4.6-5.3) L 10/14/20 03:45 Urine Color Angelica (Yellow) 10/18/20 Unknown Urine Turbidity Cloudy (Clear) 10/18/20 Unknown Urine pH 5.0 (5.0-7.0) 10/18/20 Unknown Ur Specific [place] 1.017 (1.003-1.030) 10/18/20 Unknown Urine Protein 100 mg/dl mg/dL (Negative) 10/18/20 Unknown Urine Glucose (UA) Neg mg/dL (Negative) 10/18/20 Unknown Urine Ketones Neg mg/dL (Negative) 10/18/20 Unknown Urine Blood Lg (Negative) 10/18/20 Unknown Urine Nitrite Neg (Negative) 10/18/20 Unknown Urine Bilirubin Neg (Negative) 10/18/20 Unknown Urine Urobilinogen 4.0 mg/dL (<2.0) 10/18/20 Unknown Ur Leukocyte Esterase Neg (Negative) 10/18/20 Unknown Urine WBC (Auto) 115.0 /HPF (0.0-6.0) H 10/18/20 Unknown Urine RBC (Auto) 98.0 /HPF (0.0-6.0) 10/18/20 Unknown U Epithel Cells (Auto) 2.0 /HPF (0-13.0) 10/18/20 Unknown Urine WBC Clumps 3+ /HPF 10/18/20 Unknown Urine Mucus Few /HPF 10/11/20 13:30 Urine Eosinophils None seen (None Seen) 10/11/20 13:30 Urine Creatinine 93.7 mg/dL (0.1-20.0) H 10/19/20 13:14 Urine Sodium 25 mmol/L 10/19/20 13:14 Urine Urea Nitrogen 845 10/19/20 13:14 Random Vancomycin 4.0 ug/mL (0-40.0) 10/18/20 11:47 Urine Opiates Screen Negative 10/10/20 10:50 Urine Methadone Screen Negative 10/10/20 10:50 Ur Barbiturates Screen Negative 10/10/20 10:50 Ur Phencyclidine Scrn Negative 10/10/20 10:50 Ur Amphetamines Screen Negative 10/10/20 10:50 U Benzodiazepines Scrn Negative 10/10/20 10:50 Urine Cocaine Screen Negative 10/10/20 10:50 U Marijuana (THC) Screen Positive 10/10/20 10:50 Drugs of Abuse Note Disclamer 10/10/20 10:50 Plasma/Serum Alcohol < 0.01 % (0-0.07) 10/10/20 10:48 Coronavirus (PCR) Negative (Negative) 10/11/20 Unknown Blood Type AB POSITIVE 10/10/20 10:48 Antibody Screen Negative 10/10/20 10:48 Microbiology: Microbiology 10/18/20 11:00 Peripheral/Venous Blood Culture - Preliminary NO GROWTH AFTER 48 HOURS 10/18/20 11:00 Peripheral/Venous Blood Culture - Preliminary NO GROWTH AFTER 48 HOURS 10/18/20 09:56 Tracheal Aspirate Sputum Culture - Final Methicillin Resist S. Aureus Tuttle/IV: Voiding Method Incontinent Active Medications - Current Medications Current Medications: Generic Name Dose Route Start Last Admin Trade Name Freq PRN Reason Stop Dose Admin Acetaminophen 650 mg 10/10/20 21:51 10/20/20 09:11 Acetaminophen 325 Mg Tab PO 650 mg Q4H PRN Administration Pain MILD(1-3)/Fever >100.5/[place] Acetaminophen 650 mg 10/11/20 11:24 10/17/20 17:16 Acetaminophen 650 Mg Rect Supp HI 650 mg Q6H PRN Administration Fever >101 Albuterol 2.5 mg 10/11/20 13:12 Albuterol 2.5 Mg/3 Ml Nebu IH Q6HRT PRN Shortness Of Breath Lipase/Protease/Amylase 1 each 10/10/20 22:18 Lipase 10,500/Protease 25,000/Amylase 43,750 (Units) Dr Cap FEEDTUBE PRN PRN For Clogged Feeding Tube Clonidine HCl 0.3 mg 10/14/20 15:00 10/14/20 16:00 Clonidine Tts 0.3 Mg/24 Hr Patch TD 0.3 mg Fr PEPITO Administration Docusate Sodium 100 mg 10/16/20 22:00 10/20/20 10:51 Docusate Sodium 100 Mg/10 Ml Oral Liqd PO Not Given BID PEPITO Fentanyl 50 mcg 10/16/20 14:10 10/20/20 07:43 Fentanyl 100 Mcg/2 Ml Inj IV 50 mcg Q10MIN PRN Administration ANALGESIA Fluticasone Propionate 50 mcg 10/18/20 14:00 10/20/20 09:09 Fluticasone Propionate Nasal [place] 16 Gm NS 50 mcg BID PEPITO Administration Glycopyrrolate 2 mg 10/19/20 14:00 10/20/20 14:13 Glycopyrrolate 1 Mg Tab PO 2 mg Q6H PEPITO Administration Heparin Sodium (Porcine) 5,000 unit 10/11/20 22:00 10/20/20 09:00 Heparin 5,000 Unit/1 Ml Vial SUB-Q 5,000 unit Q12HR PEPITO Administration Hydralazine HCl 5 mg 10/15/20 20:25 10/19/20 15:46 Hydralazine 20 Mg/1 Ml Inj IV 5 mg Q6H PRN Administration Hypertension Hydralazine HCl 50 mg 10/19/20 14:00 10/20/20 14:12 Hydralazine 25 Mg Tab PO 50 mg Q8HR PEPITO Administration Hydromorphone HCl 0.5 mg 10/10/20 21:51 10/15/20 14:45 Hydromorphone 1 Mg/1 Ml Inj IV 0.5 mg Q3H PRN Administration Pain , Severe (7-10) Hydrophilic Ointment 1 applic 10/10/20 10:34 Lip Therapy Vaseline TP Q2HR PRN Dry Lips Propofol 1,000 mg in 100 mls @ 4.23 mls/hr 10/10/20 12:00 10/17/20 00:36 Diprivan 10 Mg/Ml IV 0 mcg/kg/min TITR PEPITO 0 mls/hr Titration Protocol 5 MCG/KG/MIN Nitroglycerin/Dextrose 50 mg in 250 mls @ 3 mls/hr 10/10/20 13:00 10/10/20 13:17 Tridil Drip 50mg/250ml IV 0 mcg/min TITR PEPITO 0 mls/hr Titration Protocol 10 MCG/MIN Norepinephrine 8 mg/ Sodium 250 mls @ 3.75 mls/hr 10/10/20 14:00 10/10/20 22:15 Chloride IV 0 mcg/min TITRATE PEPITO 0 mls/hr Titration Protocol 2 MCG/MIN Levetiracetam 500 mg/ Dextrose 105 mls @ 400 mls/hr 10/13/20 18:00 10/20/20 06:20 IV 400 mls/hr Q12H PEPITO Administration Fentanyl Citrate 2,000 mcg in 100 mls @ 6.175 mls/hr 10/16/20 15:00 10/20/20 10:49 Fentanyl Drip Premix IV 2 mcg/kg/hr TITR PEPITO 12.35 mls/hr Administration Protocol 1 MCG/KG/HR Linezolid 600 mg in 300 mls @ 300 mls/hr 10/20/20 12:00 Zyvox 600mg/300ml IV 10/29/20 22:59 Q12HR PEPITO Protocol Amiodarone HCl 900 mg/ 500 mls @ 33.333 mls/hr 10/20/20 14:00 10/20/20 14:23 Dextrose IV 1 mg/min DIRECT PEPITO 33.333 mls/hr Administration Protocol 1 MG/MIN Sodium Chloride 1,000 mls @ 75 mls/hr 10/20/20 14:00 10/20/20 14:08 Nacl 0.9% 1000 Ml IV 10/23/20 03:19 75 mls/hr DIRECT PEPITO Administration Metoclopramide HCl 10 mg 10/10/20 21:51 Metoclopramide 10 Mg/2 Ml Inj IV Q6H PRN Nausea And Vomiting Metoprolol Tartrate 100 mg 10/20/20 22:00 Metoprolol Tartrate 50 Mg Tab PO BID [facility] Multi-Ingred Cream/Lotion/Oil/Oint 1 applic 10/10/20 10:34 Mineral Oil/Petrolatum, White Ophth Oint 3.5 Gm OU Q4HR PRN Dry Eye(s) Ondansetron HCl 4 mg 10/10/20 21:51 Ondansetron 4 Mg/2 Ml Inj IV Q3H PRN Nausea And Vomiting Pantoprazole Sodium 40 mg 10/12/20 22:00 10/20/20 09:00 Pantoprazole 40 Mg Inj IV 40 mg BID PEPITO Administration Polyethylene Glycol 17 gm 10/17/20 10:00 10/20/20 09:01 Polyethylene Glycol 3350 17 Gm Powder PO 17 gm QDAY [facility] Administration Scopolamine 1 each 10/17/20 10:00 10/20/20 09:14 Scopolamine Transdermal Patch 72 Hr TD 1 each Q3D PEPITO Administration Simple Syrup 15 ml 10/10/20 22:18 Simple Syrup 15 Ml FEEDTUBE PRN PRN Hypoglycemia Simple Syrup 30 ml 10/10/20 22:18 Simple Syrup 15 Ml FEEDTUBE PRN PRN Hypoglycemia Sodium Bicarbonate 325 mg 10/10/20 22:18 Sodium Bicarbonate 325 Mg Tab FEEDTUBE PRN PRN For Clogged Feeding Tube Sodium Chloride 10 ml 10/10/20 22:00 10/20/20 09:01 Sodium Chloride 0.9% 10 Ml Flush Syringe IV 10 ml BID PEPITO Administration Sodium Chloride 10 ml 10/10/20 21:51 Sodium Chloride 0.9% 10 Ml Flush Syringe IV PRN PRN LINE FLUSH Nutrition/Malnutrition Assess - Dietary Evaluation Nutrition/Malnutrition Findings: Nutrition Notes Start: 10/11/20 08:38 Freq: Status: Active Protocol: Document 10/18/20 12:54 CW (Rec: 10/18/20 13:04 CW [id number]) Nutrition Notes Current Diagnosis Acute Kidney Injury,Sepsis, Hypertension,Heart Failure, Respiratory Failure Other Pertinent Diagnosis GIB, pneu, Covid 19, [place], pulmonary edema Current Diet CPN at 84 ml/hr+ TF Nepro at 45 ml/hr Labs/Tests BUN 90 Cr 3.3 BG 146 Pertinent Medications Miralax Colace Height 6 ft Weight 128.1 kg [place] Body Weight (kg) 80.90 BMI 38.2 Weight change and time frame Weight gain noted, will monitor Weight Status Morbidly Obese Subjective/Other Information Day 4 CPN. Pt is tolerating both CPN and TF well. CPN to be d/c'd today after completion of bag. TF of Nepro running at 35 ml/hr Percent of energy/protein needs met: 107%/(927 kcal from TF and 995 kcal from CPN) 79% Burn Absent Trauma Absent Current % PO Negligible Minimum of two criteria No physical signs of malnutrition #2 Nutrition Diagnosis Inadequate energy intake As Evidenced by Signs and Symptoms TF running at 45 ml/hr with CPN running at 84 ml/hr Diagnosis Progress(for reassessment Improved documentation) #1 Nutrition Diagnosis Inadequate oral intake Diagnosis Progress(for reassessment Continues documentation) Is patient on ventilator? Yes Is Patient Ambulatory and/or Out of Bed No REE-([place]-confined to bed) 2600.352 Kcal/Kg value to use for calculation 14 Approximate Energy Requirements Using 1793 kcal/Kg Calculation Used for Recommendations Kcal/kg Additional Notes protein needs: >162g (>2 kgIBW ) fluid needs: 1 ml/kcal or per MD Nutrition Intervention Change Diet Order: D/C CPN Continue TF Nutrition Support: Nepro at 45 ml/hr with a free water flush of 200 ml q4h Kcal 1,944 Protein (gm) 87 Fluid (mL) 785 Goal #1 TF at goal and well tolerated Goal #2 Meet at least 75% of kcal needs via TF Anticipated Discharge Needs: unable to determine at this time Follow-Up By: 10/21/20 Additional Comments F/U TF at goal and tolerance
--- NOTE | 2020-10-20 17:12 | XRay Report ---
ABDOMEN 1 VIEW 10/20/2020 4:04 PM INDICATION / CLINICAL INFORMATION: OGT Placement. COMPARISON: None available. FINDINGS: TUBES / LINES: There is an orogastric tube curled and doubled back on itself in the lower chest, prob ably in a hiatal hernia. The tip of the tube is above the diaphragm. BOWEL GAS PATTERN: No significant abnormality. FREE AIR / EXTRALUMINAL GAS: None. ADDITIONAL FINDINGS: No significant additional findings. IMPRESSION: Orogastric tube tip is above the diaphragm and the tube is likely coiled in a hiatal josiah ia. Signer Name: Wilber Beebe MD Signed: 10/20/2020 5:07 PM Workstation Name: [id number]
--- NOTE | 2020-10-20 18:41 | XRay Report ---
ABDOMEN 1 VIEW 10/20/2020 5:31 PM INDICATION / CLINICAL INFORMATION: OGT Placement. COMPARISON: Earlier today at 4:58 PM. FINDINGS: TUBES / LINES: The orogastric tube has been repositioned with the tip now overlying stomach below the hemidiaphragm. The proximal sidehole is below the hemidiaphragm. The tube appears to be doubled back on itself working at the level of the proximal sidehole with the tip overlying the proximal stomach below the hemidiaphragm. BOWEL GAS PATTERN: No significant abnormality. FREE AIR / EXTRALUMINAL GAS: None. ADDITIONAL FINDINGS: No significant additional findings. IMPRESSION: The tip of the OG tube overlies the stomach below the hemidiaphragm. The tube appears to be doubled back on itself or kinked at the level of the proximal sidehole. Signer Name: Wilber Beebe MD Signed: 10/20/2020 6:36 PM Workstation Name: [id number]
--- NOTE | 2020-10-20 20:40 | XRay Report ---
ABDOMEN 1 VIEW 10/20/2020 7:33 PM INDICATION / CLINICAL INFORMATION: OGT placement. COMPARISON: None available. FINDINGS: NG tube extends within the stomach. Tip is within the mid to distal stomach.: Signer Name: Cayetano Dodson MD Signed: 10/20/2020 8:35 PM Workstation Name: [id number]
[2020-10-21] MEDS: fentaNYL DRIP Premix 2,000 MCG/100 ML BAG IV SCH ×2 (02:17→16:40)
[2020-10-21] MEDS: SODIUM CHLORIDE 0.9% 1000 ML 1,000 ML IV SCH ×2 (02:18→16:40)
[2020-10-21] MEDS: GLYCOPYRROLATE 1 MG TAB PO SCH ×4 (02:18→20:49)
[2020-10-21] MEDS: hydrALAZINE 25 MG TAB PO SCH ×3 (06:13→21:26)
[2020-10-21] MEDS: levETIRAcetam 500 MG in DEXTROSE 5% IN WATER 100 ML IV SCH ×2 (06:13→17:06)
[2020-10-21 06:51] LABS: Hematocrit 32.7 % (35.5-45.6); Hemoglobin 10.7 gm/dl (11.8-15.2); Mean Corpuscular HGB Conc 33 % (32-34); Mean Corpuscular Volume 89 fl (84-94); Platelet Count 255 K/mm3 (140-440); Red Blood Count 3.68 M/mm3 (3.65-5.03); Red Cell Distribution Width 14.6 % (13.2-15.2)
[2020-10-21 07:04] LABS: Calcium 9.1 mg/dL (8.4-10.2)
--- NOTE | 2020-10-21 08:16 | Progress Note ---
Assessment and Plan 1. Acute kidney injury: Vasomotor MOE in the setting of Cardiac arrest and shock. Renal US negative for hydro. Monitor renal function. BUN and Creatinine leveled off. Multiple bladder scan showed no retention. Avoid nephrotoxic agents. Meds dosage based on GFR. 2. FEN: Volume overload, improved, monitor. Hypernatremia, sodium level is better, monitor. On Tube feeding. Monitor lytes and volume status. 3. Acute hypoxic respiratory failure, POA: 2/2 PNA and CHF. COVID test negative. Intubated on vent. 4. Sepsis, POA: 2/2 PNA. Abx. 5. NSTEMI type II: Post cardiac arrest EKG showed no acute ischemic changes. Followed by Cards. 6. Acute CHF: Echo showed Normal EF and mild DD. 7. S/p Cardiac arrest. 8. A.fib / A.flutter: Amio drip. 9. Anoxic encephalopathy: Followed by Neuro. 10. GI bleed: Seen by GI. 11. Elevated Transaminases: Improved. 12. HTN: Monitor. Adjust meds as needed. Subjective: Patient was seen and examined at the bedside. Objective: General appearance: well-developed, appears stated age, intubated, on vent HEENT: ATNC, pupils equal Neck: trachea midline Respiratory: ctab Heart: regular, S1S2, no murmur Gastrointestinal: soft, normoactive bowel sounds, not tender Integumentary: no rash, warm and dry Ext: no edema Neurologic: not responding Musculoskeletal: no obvious deformity Subjective Date of service: 10/21/20 Principal diagnosis: Cardiac arrest; Septic Shock; Ac. hypoxemic & hypercapnic resp failure; MOE Objective - Vital Signs Vital signs: Vital Signs - 12hr 10/20/20 10/20/20 10/20/20 20:28 20:30 21:00 Temperature Pulse Rate 102 H 100 H 104 H Pulse Rate [ From Monitor] Respiratory 10 L 10 L Rate Blood Pressure 141/82 134/77 132/75 O2 Sat by Pulse 96 97 97 Oximetry 10/20/20 10/20/20 10/20/20 21:30 22:00 22:24 Temperature 99.4 F Pulse Rate 96 H 95 H 72 Pulse Rate [ From Monitor] Respiratory 11 L 8 L Rate Blood Pressure 147/84 132/83 114/68 O2 Sat by Pulse 95 96 Oximetry 10/20/20 10/20/20 10/20/20 22:25 22:26 22:30 Temperature Pulse Rate 74 76 88 Pulse Rate [ From Monitor] Respiratory Rate Blood Pressure 114/68 114/68 123/78 O2 Sat by Pulse 96 94 Oximetry 10/20/20 10/20/20 10/21/20 23:00 23:30 00:00 Temperature 99.8 F H Pulse Rate 69 77 73 Pulse Rate [ 76 From Monitor] Respiratory Rate Blood Pressure 119/80 134/95 137/81 O2 Sat by Pulse 95 95 96 Oximetry 10/21/20 10/21/20 10/21/20 00:30 00:32 01:00 Temperature Pulse Rate 83 78 94 H Pulse Rate [ From Monitor] Respiratory 11 L 12 Rate Blood Pressure 117/64 137/81 118/68 O2 Sat by Pulse 95 94 95 Oximetry 10/21/20 10/21/20 10/21/20 01:30 02:00 02:30 Temperature Pulse Rate 86 88 89 Pulse Rate [ From Monitor] Respiratory 10 L 12 11 L Rate Blood Pressure 127/69 117/72 106/71 O2 Sat by Pulse 95 96 96 Oximetry 10/21/20 10/21/20 10/21/20 03:00 03:30 04:00 Temperature 98.4 F Pulse Rate 79 87 89 Pulse Rate [ 82 From Monitor] Respiratory 11 L 8 L 11 L Rate Blood Pressure 109/73 131/87 128/75 O2 Sat by Pulse 96 96 97 Oximetry 10/21/20 10/21/20 10/21/20 04:30 05:00 05:30 Temperature Pulse Rate 87 85 84 Pulse Rate [ From Monitor] Respiratory 11 L 8 L Rate Blood Pressure 119/71 124/73 128/79 O2 Sat by Pulse 94 94 100 Oximetry 10/21/20 10/21/20 10/21/20 05:33 06:00 06:13 Temperature Pulse Rate 82 104 H 102 H Pulse Rate [ From Monitor] Respiratory 9 L Rate Blood Pressure 124/73 104/83 133/70 O2 Sat by Pulse 96 95 Oximetry - Lab 10/21/20 06:30 10/21/20 06:30 Most recent lab results ABG pH 7.262 (7.320-7.450) L 10/21/20 04:20 ABG pCO2 55.5 mm Hg 10/16/20 05:10 ABG pO2 104.5 mm Hg (80.0-90.0) H 10/16/20 05:10 ABG HCO3 35.1 mmol/L (20.0-26.0) H 10/16/20 05:10 ABG O2 Saturation 95.2 (0-100) 10/21/20 04:20 Calcium 9.1 mg/dL (8.4-10.2) 10/21/20 06:30 Phosphorus 5.20 mg/dL (2.5-4.5) H D 10/17/20 03:32 Magnesium 2.30 mg/dL (1.7-2.3) 10/17/20 03:32 Urine Creatinine 93.7 mg/dL (0.1-20.0) H 10/19/20 13:14 Urine Sodium 25 mmol/L 10/19/20 13:14 Medications & Allergies - Medications Allergies/Adverse Reactions: Allergies No Known Allergies Allergy (Unverified 07/06/13 15:19) Home Medications: Home Medications Medication Instructions Recorded Confirmed Last Taken Type Albuterol Sulfate [Ventolin HFA] 2 puff IH Q4H PRN #1 hfa.aer.ad 07/06/13 Unknown Rx Prednisone 40 mg PO QDAY #8 tablet 07/06/13 Unknown Rx Albuterol Mdi (or & Nicu Only) 2 puff IH Q4H PRN #1 inha 07/07/13 Unknown Rx [ProAir HFA Inhaler] Azithromycin [Zithromax Z-KYLE] 500 mg PO QDAY #5 tab 07/07/13 Unknown Rx HYDROcodone/APAP 5-325 [[place] 2 each PO Q6H PRN #30 tablet 07/07/13 Unknown Rx 5-325 mg TAB] predniSONE [Deltasone] 40 mg PO QDAY #10 tablet 07/07/13 Unknown Rx Active Medications: Generic Name Dose Route Start Last Admin Trade Name Freq PRN Reason Stop Dose Admin Acetaminophen 650 mg 10/10/20 21:51 10/20/20 09:11 Acetaminophen 325 Mg Tab PO 650 mg Q4H PRN Administration Pain MILD(1-3)/Fever >100.5/SALVADOR Acetaminophen 650 mg 10/11/20 11:24 10/17/20 17:16 Acetaminophen 650 Mg Rect Supp [place] 650 mg Q6H PRN Administration Fever >101 Albuterol 2.5 mg 10/11/20 13:12 Albuterol 2.5 Mg/3 Ml Nebu IH Q6HRT PRN Shortness Of Breath Lipase/Protease/Amylase 1 each 10/10/20 22:18 Lipase 10,500/Protease 25,000/Amylase 43,750 (Units) Dr Santana FEEDTUBE PRN PRN For Clogged Feeding Tube Clonidine HCl 0.3 mg 10/14/20 15:00 10/14/20 16:00 Clonidine Tts 0.3 Mg/24 Hr Patch TD 0.3 mg Fr PEPITO Administration Docusate Sodium 100 mg 10/16/20 22:00 10/20/20 22:25 Docusate Sodium 100 Mg/10 Ml Oral Liqd PO 100 mg BID PEPITO Administration Fentanyl 50 mcg 10/16/20 14:10 10/20/20 07:43 Fentanyl 100 Mcg/2 Ml Inj IV 50 mcg Q10MIN PRN Administration ANALGESIA Fluticasone Propionate 50 mcg 10/18/20 14:00 10/20/20 22:22 Fluticasone Propionate Nasal [place] 16 Gm NS 50 mcg BID PEPITO Administration Glycopyrrolate 2 mg 10/19/20 14:00 10/21/20 02:18 Glycopyrrolate 1 Mg Tab PO 2 mg Q6H PEPITO Administration Heparin Sodium (Porcine) 5,000 unit 10/11/20 22:00 10/20/20 22:25 Heparin 5,000 Unit/1 Ml Vial SUB-Q 5,000 unit Q12HR PEPITO Administration Hydralazine HCl 5 mg 10/15/20 20:25 10/19/20 15:46 Hydralazine 20 Mg/1 Ml Inj IV 5 mg Q6H PRN Administration Hypertension Hydralazine HCl 50 mg 10/19/20 14:00 10/21/20 06:13 Hydralazine 25 Mg Tab PO 50 mg Q8HR PEPITO Administration Hydromorphone HCl 0.5 mg 10/10/20 21:51 10/15/20 14:45 Hydromorphone 1 Mg/1 Ml Inj IV 0.5 mg Q3H PRN Administration Pain , Severe (7-10) Hydrophilic Ointment 1 applic 10/10/20 10:34 Lip Therapy Vaseline TP Q2HR PRN Dry Lips Propofol 1,000 mg in 100 mls @ 4.23 mls/hr 10/10/20 12:00 10/17/20 00:36 Diprivan 10 Mg/Ml IV 0 mcg/kg/min TITR PEPITO 0 mls/hr Titration Protocol 5 MCG/KG/MIN Nitroglycerin/Dextrose 50 mg in 250 mls @ 3 mls/hr 10/10/20 13:00 10/10/20 13:17 Tridil Drip 50mg/250ml IV 0 mcg/min TITR PEPITO 0 mls/hr Titration Protocol 10 MCG/MIN Norepinephrine 8 mg/ Sodium 250 mls @ 3.75 mls/hr 10/10/20 14:00 10/10/20 22:15 Chloride IV 0 mcg/min TITRATE PEPITO 0 mls/hr Titration Protocol 2 MCG/MIN Levetiracetam 500 mg/ Dextrose 105 mls @ 400 mls/hr 10/13/20 18:00 10/21/20 06:13 IV 400 mls/hr Q12H PEPITO Administration Fentanyl Citrate 2,000 mcg in 100 mls @ 6.175 mls/hr 10/16/20 15:00 10/21/20 02:17 Fentanyl Drip Premix IV 2 mcg/kg/hr TITR PEPITO 12.35 mls/hr Administration Protocol 1 MCG/KG/HR Linezolid 600 mg in 300 mls @ 300 mls/hr 10/20/20 12:00 10/20/20 22:25 Zyvox 600mg/300ml IV 10/29/20 22:59 300 mls/hr Q12HR PEPITO Administration Protocol Amiodarone HCl 900 mg/ 500 mls @ 33.333 mls/hr 10/20/20 14:00 10/20/20 20:25 Dextrose IV 0.5 mg/min DIRECT PEPITO 16.667 mls/hr Infusion Protocol 1 MG/MIN Sodium Chloride 1,000 mls @ 75 mls/hr 10/20/20 14:00 10/21/20 02:18 Nacl 0.9% 1000 Ml IV 10/23/20 03:19 75 mls/hr DIRECT PEPITO Administration Metoclopramide HCl 10 mg 10/10/20 21:51 Metoclopramide 10 Mg/2 Ml Inj IV Q6H PRN Nausea And Vomiting Metoprolol Tartrate 100 mg 10/20/20 22:00 10/20/20 22:25 Metoprolol Tartrate 50 Mg Tab PO 100 mg BID PEPITO Administration Multi-Ingred Cream/Lotion/Oil/Oint 1 applic 10/10/20 10:34 Mineral Oil/Petrolatum, White Ophth Oint 3.5 Gm OU Q4HR PRN Dry Eye(s) Ondansetron HCl 4 mg 10/10/20 21:51 Ondansetron 4 Mg/2 Ml Inj IV Q3H PRN Nausea And Vomiting Pantoprazole Sodium 40 mg 10/12/20 22:00 10/20/20 22:27 Pantoprazole 40 Mg Inj IV 40 mg BID PEPITO Administration Polyethylene Glycol 17 gm 10/17/20 10:00 10/20/20 09:01 Polyethylene Glycol 3350 17 Gm Powder PO 17 gm QDAY PEPITO Administration Scopolamine 1 each 10/17/20 10:00 10/20/20 09:14 Scopolamine Transdermal Patch 72 Hr TD 1 each Q3D PEPITO Administration Simple Syrup 15 ml 10/10/20 22:18 Simple Syrup 15 Ml FEEDTUBE PRN PRN Hypoglycemia Simple Syrup 30 ml 10/10/20 22:18 Simple Syrup 15 Ml FEEDTUBE PRN PRN Hypoglycemia Sodium Bicarbonate 325 mg 10/10/20 22:18 Sodium Bicarbonate 325 Mg Tab FEEDTUBE PRN PRN For Clogged Feeding Tube Sodium Chloride 10 ml 10/10/20 22:00 10/20/20 22:22 Sodium Chloride 0.9% 10 Ml Flush Syringe IV 10 ml BID PEPITO Administration Sodium Chloride 10 ml 10/10/20 21:51 Sodium Chloride 0.9% 10 Ml Flush Syringe IV PRN PRN LINE FLUSH
[2020-10-21] MEDS: PANTOPRAZOLE 40 MG INJ IV SCH ×2 (09:53→21:27)
[2020-10-21] MEDS: DOCUSATE SODIUM 100 MG/10 ML ORAL LIQD PO SCH ×2 (09:53→21:26)
[2020-10-21] MEDS: HEPARIN 5,000 UNIT/1 ML VIAL SUB-Q SCH ×2 (09:54→21:27)
[2020-10-21] MEDS: METOPROLOL TARTRATE 50 MG TAB PO SCH ×3 (09:54→20:49)
[2020-10-21] MEDS: POLYETHYLENE GLYCOL 3350 17 GM POWDER PO SCH (09:55)
[2020-10-21] MEDS: LINEZOLID 600 MG/300 ML BAG IV SCH ×2 (09:55→21:26)
[2020-10-21] MEDS: FLUTICASONE PROPIONATE NASAL SPRAY 16 GM NS SCH ×3 (09:56→21:27)
--- NOTE | 2020-10-21 10:32 | Progress Note ---
Assessment and Plan 55 yo male with htn, asthma, who presented as being found unresponsive and underwent multiple cardiopulmonary arrest events with the first few hours, including a possible seizure event and is noted with underlying pneumonia w/ associated sepsis, nstemi, gi bleed (on heparin gtt), transaminitis, hypernatremia, and renal failure. . 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 2. Seizure - keppra 500 mg iv q12; eeg report not seen from last time I ordered it; re-ordered EEG (stat) to confirm no evidence of ictal activity that is clouding the neurologic exam. 3. Metabolic Encephalopathy - in the setting of underlying infe ction/inflammation/renal failure. 4. NSTEMI - per primary team. Jayson Beebe MD Neurology Subjective Date of service: 10/21/20 Principal diagnosis: Cardiac arrest; Septic Shock; Ac. hypoxemic & hypercapnic resp failure; MOE Interval history: Per RN, no clinical seizure activity noted. Per RN, the patient has not improved neurologically. He has been off Fentanyl for the last 2 hours and not on any other sedation. Per RN, the patient cannot undergo a MRI Brain secondary to desat when laying flat. Objective - Exam Narrative Exam: Gen: nad, well-nourished, intubated; Head: normocephalic; Eyes: no gaze deviation; no ptosis appreciated; ENT: +ETT; CVS: warm and well-perfused; Pulm: no respiratory distress; GI: non-distended, protuberant; Ext: no cyanosis at distal extremities; Skin: no acute rash at distal extremities; Heme: no bruising or ecchymosis at distal extremities; Neuro: obtunded, intubated, CN 2 - sluggishly reactive pupils, CN 3, 4, 6 - oculocephalic absent, CN 5/7 - spontaneous eye opening/closing; CN 9/10 - mild cough noted via ETT, CN 11/12 - pt cannot cooperate secondary to LOC; Motor/Sensory - 0/5 in all exts to tactile stimuli; Cerebellar/Gait - pt cannot cooperate secondary to LOC; NIHSS>25 - Vital Sign Vital Signs - 12hr 10/20/20 10/20/20 10/20/20 22:30 23:00 23:30 Temperature Pulse Rate 88 69 77 Pulse Rate [ From Monitor] Respiratory Rate Blood Pressure 123/78 119/80 134/95 O2 Sat by Pulse 94 95 95 Oximetry 10/21/20 10/21/20 10/21/20 00:00 00:30 00:32 Temperature 99.8 F H Pulse Rate 73 83 78 Pulse Rate [ 76 From Monitor] Respiratory 11 L Rate Blood Pressure 137/81 117/64 137/81 O2 Sat by Pulse 96 95 94 Oximetry 10/21/20 10/21/20 10/21/20 01:00 01:30 02:00 Temperature Pulse Rate 94 H 86 88 Pulse Rate [ From Monitor] Respiratory 12 10 L 12 Rate Blood Pressure 118/68 127/69 117/72 O2 Sat by Pulse 95 95 96 Oximetry 10/21/20 10/21/20 10/21/20 02:30 03:00 03:30 Temperature Pulse Rate 89 79 87 Pulse Rate [ From Monitor] Respiratory 11 L 11 L 8 L Rate Blood Pressure 106/71 109/73 131/87 O2 Sat by Pulse 96 96 96 Oximetry 10/21/20 10/21/20 10/21/20 04:00 04:30 05:00 Temperature 98.4 F Pulse Rate 89 87 85 Pulse Rate [ 82 From Monitor] Respiratory 11 L 11 L 8 L Rate Blood Pressure 128/75 119/71 124/73 O2 Sat by Pulse 97 94 94 Oximetry 10/21/20 10/21/20 10/21/20 05:30 05:33 06:00 Temperature Pulse Rate 84 82 104 H Pulse Rate [ From Monitor] Respiratory 9 L Rate Blood Pressure 128/79 124/73 104/83 O2 Sat by Pulse 100 96 95 Oximetry 10/21/20 10/21/20 10/21/20 06:13 06:30 07:00 Temperature Pulse Rate 102 H 105 H 101 H Pulse Rate [ From Monitor] Respiratory 9 L 10 L Rate Blood Pressure 133/70 121/64 117/67 O2 Sat by Pulse 96 96 Oximetry 10/21/20 10/21/20 10/21/20 07:30 08:00 08:30 Temperature 98.6 F Pulse Rate 104 H 104 H 105 H Pulse Rate [ From Monitor] Respiratory 9 L 9 L Rate Blood Pressure 126/67 143/76 145/85 O2 Sat by Pulse 96 96 97 Oximetry - Laboratory Findings CBC and BMP: 10/21/20 06:30 10/21/20 06:30 Abnormal Lab Findings: Abnormal Labs 10/10/20 10/10/20 10/10/20 10:46 10:46 10:46 WBC RBC Hgb Hct RDW Lymph % (Auto) Elliott % (Auto) Lymph # (Auto) Elliott # (Auto) Seg Neutrophils % Lymphocytes % (Manual) Monocytes % (Manual) Seg Neutrophils # Seg Neutrophils # Man Lymphocytes # (Manual) Monocytes # (Manual) D-Dimer Heparin Anti-Xa Level ABG pH POC ABG pCO2 POC ABG pO2 ABG pO2 ABG HCO3 ABG O2 Saturation ABG Base Excess ABG Hemoglobin ABG Oxyhemoglobin ABG Sodium ABG Potassium ABG Chloride ABG Glucose VBG pH Oxyhemoglobin Carboxyhemoglobin Sodium Potassium Chloride Carbon Dioxide BUN Creatinine Glucose POC Glucose Lactic Acid 13.60 H* Calcium Phosphorus Magnesium Total Bilirubin AST ALT Ammonia 214.0 H Lactate Dehydrogenase Total Creatine Kinase CK-MB (CK-2) Troponin T NT-Pro-B Natriuret Pep Total Protein Albumin Triglycerides TSH 6.260 H Arterial Blood Glucose Arterial Blood Ionized Calcium Urine pH Urine WBC (Auto) Urine Creatinine 10/10/20 10/10/20 10/10/20 10:46 10:48 10:48 WBC RBC 5.28 H Hgb 15.5 H Hct 48.8 H RDW Lymph % (Auto) Elliott % (Auto) Lymph # (Auto) Elliott # (Auto) Seg Neutrophils % Lymphocytes % (Manual) 42.0 H Monocytes % (Manual) Seg Neutrophils # Seg Neutrophils # Man Lymphocytes # (Manual) Monocytes # (Manual) D-Dimer Heparin Anti-Xa Level ABG pH POC ABG pCO2 POC ABG pO2 ABG pO2 ABG HCO3 ABG O2 Saturation ABG Base Excess ABG Hemoglobin ABG Oxyhemoglobin ABG Sodium ABG Potassium ABG Chloride ABG Glucose VBG pH Oxyhemoglobin Carboxyhemoglobin Sodium Potassium 3.3 L Chloride 91.2 L Carbon Dioxide BUN Creatinine 1.8 H Glucose 231 H POC Glucose Lactic Acid Calcium Phosphorus Magnesium Total Bilirubin AST 60 H ALT 57 H Ammonia Lactate Dehydrogenase Total Creatine Kinase CK-MB (CK-2) Troponin T NT-Pro-B Natriuret Pep 1187 H Total Protein 9.0 H Albumin Triglycerides TSH Arterial Blood Glucose Arterial Blood Ionized Calcium Urine pH Urine WBC (Auto) Urine Creatinine 10/10/20 10/10/20 10/10/20 10:48 10:48 10:48 WBC RBC Hgb Hct RDW Lymph % (Auto) Elliott % (Auto) Lymph # (Auto) Elliott # (Auto) Seg Neutrophils % Lymphocytes % (Manual) Monocytes % (Manual) Seg Neutrophils # Seg Neutrophils # Man Lymphocytes # (Manual) Monocytes # (Manual) D-Dimer 679.5 H Heparin Anti-Xa Level ABG pH POC ABG pCO2 POC ABG pO2 ABG pO2 ABG HCO3 ABG O2 Saturation ABG Base Excess ABG Hemoglobin ABG Oxyhemoglobin ABG Sodium ABG Potassium ABG Chloride ABG Glucose VBG pH 6.870 L* Oxyhemoglobin Carboxyhemoglobin Sodium Potassium Chloride Carbon Dioxide BUN Creatinine Glucose POC Glucose Lactic Acid Calcium Phosphorus Magnesium Total Bilirubin AST ALT Ammonia Lactate Dehydrogenase 386 H Total Creatine Kinase CK-MB (CK-2) Troponin T NT-Pro-B Natriuret Pep Total Protein Albumin Triglycerides TSH Arterial Blood Glucose Arterial Blood Ionized Calcium Urine pH Urine WBC (Auto) Urine Creatinine 10/10/20 10/10/20 10/10/20 14:10 14:20 15:50 WBC RBC Hgb Hct RDW Lymph % (Auto) Elliott % (Auto) Lymph # (Auto) Elliott # (Auto) Seg Neutrophils % Lymphocytes % (Manual) Monocytes % (Manual) Seg Neutrophils # Seg Neutrophils # Man Lymphocytes # (Manual) Monocytes # (Manual) D-Dimer Heparin Anti-Xa Level ABG pH 7.175 L 7.247 L POC ABG pCO2 85.0 H POC ABG pO2 43.7 L ABG pO2 60.3 L ABG HCO3 32.0 H ABG O2 Saturation 86.1 L ABG Base Excess ABG Hemoglobin ABG Oxyhemoglobin 67.7 L ABG Sodium ABG Potassium ABG Chloride ABG Glucose 247 H VBG pH Oxyhemoglobin 84.4 L Carboxyhemoglobin Sodium Potassium Chloride Carbon Dioxide BUN Creatinine Glucose POC Glucose Lactic Acid 4.00 H* Calcium Phosphorus Magnesium Total Bilirubin AST ALT Ammonia Lactate Dehydrogenase Total Creatine Kinase CK-MB (CK-2) Troponin T NT-Pro-B Natriuret Pep Total Protein Albumin Triglycerides TSH Arterial Blood Glucose 247 H Arterial Blood Ionized Calcium 4.4 L Urine pH Urine WBC (Auto) Urine Creatinine 10/10/20 10/10/2010/10/21 15:50 16:22 18:18 WBC RBC Hgb Hct RDW Lymph % (Auto) Elliott % (Auto) Lymph # (Auto) Elliott # (Auto) Seg Neutrophils % Lymphocytes % (Manual) Monocytes % (Manual) Seg Neutrophils # Seg Neutrophils # Man Lymphocytes # (Manual) Monocytes # (Manual) D-Dimer Heparin Anti-Xa Level ABG pH 7.171 L POC ABG pCO2 96.6 H POC ABG pO2 55.3 L ABG pO2 ABG HCO3 ABG O2 Saturation ABG Base Excess ABG Hemoglobin ABG Oxyhemoglobin 81.4 L ABG Sodium ABG Potassium ABG Chloride ABG Glucose 115 H VBG pH Oxyhemoglobin Carboxyhemoglobin Sodium Potassium Chloride Carbon Dioxide BUN Creatinine Glucose POC Glucose 132 H Lactic Acid Calcium Phosphorus Magnesium Total Bilirubin AST ALT Ammonia Lactate Dehydrogenase Total Creatine Kinase 1192 H CK-MB (CK-2) 21.7 H Troponin T 0.377 H* D NT-Pro-B Natriuret Pep Total Protein Albumin Triglycerides TSH Arterial Blood Glucose 115 H Arterial Blood Ionized Calcium Urine pH Urine WBC (Auto) Urine Creatinine 10/10/20 10/10/20 10/10/20 18:18 18:18 22:49 WBC 23.0 H RBC 5.12 H Hgb Hct RDW Lymph % (Auto) Elliott % (Auto) Lymph # (Auto) Elliott # (Auto) Seg Neutrophils % Lymphocytes % (Manual) 4.0 L Monocytes % (Manual) 9.0 H Seg Neutrophils # Seg Neutrophils # Man 13.8 H Lymphocytes # (Manual) 0.9 L Monocytes # (Manual) 2.1 H D-Dimer Heparin Anti-Xa Level ABG pH POC ABG pCO2 POC ABG pO2 ABG pO2 ABG HCO3 ABG O2 Saturation ABG Base Excess ABG Hemoglobin ABG Oxyhemoglobin ABG Sodium ABG Potassium ABG Chloride ABG Glucose VBG pH Oxyhemoglobin Carboxyhemoglobin Sodium 146 H Potassium Chloride Carbon Dioxide 34 H D BUN 27 H Creatinine 2.7 H Glucose 102 H POC Glucose Lactic Acid Calcium Phosphorus Magnesium Total Bilirubin AST 90 H ALT 66 H Ammonia Lactate Dehydrogenase Total Creatine Kinase CK-MB (CK-2) Troponin T 0.273 H* D NT-Pro-B Natriuret Pep Total Protein Albumin Triglycerides TSH Arterial Blood Glucose Arterial Blood Ionized Calcium Urine pH Urine WBC (Auto) Urine Creatinine 0310/11/20 10/11/20 02:00 02:00 02:00 WBC 17.3 H RBC Hgb Hct RDW Lymph % (Auto) 3.9 L Elliott % (Auto) Lymph # (Auto) 0.7 L Elliott # (Auto) Seg Neutrophils % 93.0 H Lymphocytes % (Manual) Monocytes % (Manual) Seg Neutrophils # 16.1 H Seg Neutrophils # Man Lymphocytes # (Manual) Monocytes # (Manual) D-Dimer Heparin Anti-Xa Level ABG pH POC ABG pCO2 POC ABG pO2 ABG pO2 ABG HCO3 ABG O2 Saturation ABG Base Excess ABG Hemoglobin ABG Oxyhemoglobin ABG Sodium ABG Potassium ABG Chloride ABG Glucose VBG pH Oxyhemoglobin Carboxyhemoglobin Sodium 149 H Potassium 3.3 L Chloride 95.3 L Carbon Dioxide 37 H BUN 29 H Creatinine 2.6 H Glucose POC Glucose Lactic Acid Calcium Phosphorus Magnesium Total Bilirubin AST 80 H ALT 59 H Ammonia Lactate Dehydrogenase Total Creatine Kinase CK-MB (CK-2) Troponin T 0.201 H* D NT-Pro-B Natriuret Pep Total Protein Albumin 3.6 L Triglycerides TSH Arterial Blood Glucose Arterial Blood Ionized Calcium Urine pH Urine WBC (Auto) Urine Creatinine 10/11/20 10/11/20 10/11/20 03:51 08:35 11:15 WBC RBC Hgb Hct RDW Lymph % (Auto) Elliott % (Auto) Lymph # (Auto) Elliott # (Auto) Seg Neutrophils % Lymphocytes % (Manual) Monocytes % (Manual) Seg Neutrophils # Seg Neutrophils # Man Lymphocytes # (Manual) Monocytes # (Manual) D-Dimer Heparin Anti-Xa Level 0.22 L ABG pH 7.491 H POC ABG pCO2 57.6 H POC ABG pO2 ABG pO2 ABG HCO3 ABG O2 Saturation ABG Base Excess ABG Hemoglobin ABG Oxyhemoglobin ABG Sodium 150.0 H ABG Potassium 3.1 L ABG Chloride 96.0 L ABG Glucose 122 H VBG pH Oxyhemoglobin Carboxyhemoglobin Sodium Potassium Chloride Carbon Dioxide BUN Creatinine Glucose POC Glucose 151 H Lactic Acid Calcium Phosphorus Magnesium Total Bilirubin AST ALT Ammonia Lactate Dehydrogenase Total Creatine Kinase CK-MB (CK-2) Troponin T NT-Pro-B Natriuret Pep Total Protein Albumin Triglycerides TSH Arterial Blood Glucose 122 H Arterial Blood Ionized Calcium 3.9 L Urine pH Urine WBC (Auto) Urine Creatinine 10/11/20 10/11/20 10/11/20 13:30 13:30 13:30 WBC 15.0 H RBC Hgb Hct RDW Lymph % (Auto) Elliott % (Auto) Lymph # (Auto) Elliott # (Auto) Seg Neutrophils % Lymphocytes % (Manual) Monocytes % (Manual) Seg Neutrophils # Seg Neutrophils # Man Lymphocytes # (Manual) Monocytes # (Manual) D-Dimer Heparin Anti-Xa Level ABG pH POC ABG pCO2 POC ABG pO2 ABG pO2 ABG HCO3 ABG O2 Saturation ABG Base Excess ABG Hemoglobin ABG Oxyhemoglobin ABG Sodium ABG Potassium ABG Chloride ABG Glucose VBG pH Oxyhemoglobin Carboxyhemoglobin Sodium Potassium Chloride Carbon Dioxide BUN Creatinine Glucose POC Glucose Lactic Acid Calcium Phosphorus Magnesium Total Bilirubin AST ALT Ammonia Lactate Dehydrogenase Total Creatine Kinase CK-MB (CK-2) Troponin T NT-Pro-B Natriuret Pep Total Protein Albumin Triglycerides TSH Arterial Blood Glucose Arterial Blood Ionized Calcium Urine pH 9.0 H Urine WBC (Auto) 18.0 H Urine Creatinine 80.5 H 10/11/20 10/11/20 10/12/20 17:17 23:14 03:53 WBC RBC Hgb Hct RDW Lymph % (Auto) Elliott % (Auto) Lymph # (Auto) Elliott # (Auto) Seg Neutrophils % Lymphocytes % (Manual) Monocytes % (Manual) Seg Neutrophils # Seg Neutrophils # Man Lymphocytes # (Manual) Monocytes # (Manual) D-Dimer Heparin Anti-Xa Level ABG pH 7.545 H POC ABG pCO2 54.6 H POC ABG pO2 231.9 H ABG pO2 ABG HCO3 ABG O2 Saturation ABG Base Excess ABG Hemoglobin ABG Oxyhemoglobin 98.5 H ABG Sodium 150.5 H ABG Potassium 3.2 L ABG Chloride 96.0 L ABG Glucose 148 H VBG pH Oxyhemoglobin Carboxyhemoglobin Sodium Potassium Chloride Carbon Dioxide BUN Creatinine Glucose POC Glucose 121 H 135 H Lactic Acid Calcium Phosphorus Magnesium Total Bilirubin AST ALT Ammonia Lactate Dehydrogenase Total Creatine Kinase CK-MB (CK-2) Troponin T NT-Pro-B Natriuret Pep Total Protein Albumin Triglycerides TSH Arterial Blood Glucose 148 H Arterial Blood Ionized Calcium 3.8 L Urine pH Urine WBC (Auto) Urine Creatinine 10/12/20 10/12/20 10/12/20 04:00 05:10 05:12 WBC 14.3 H RBC Hgb 11.6 L Hct 35.2 L RDW Lymph % (Auto) Elliott % (Auto) Lymph # (Auto) Elliott # (Auto) Seg Neutrophils % Lymphocytes % (Manual) Monocytes % (Manual) Seg Neutrophils # Seg Neutrophils # Man Lymphocytes # (Manual) Monocytes # (Manual) D-Dimer Heparin Anti-Xa Level ABG pH POC ABG pCO2 POC ABG pO2 ABG pO2 ABG HCO3 ABG O2 Saturation ABG Base Excess ABG Hemoglobin ABG Oxyhemoglobin ABG Sodium ABG Potassium ABG Chloride ABG Glucose VBG pH Oxyhemoglobin Carboxyhemoglobin Sodium 155 H Potassium 3.3 L Chloride 97.9 L Carbon Dioxide 47 H* D BUN 50 H Creatinine 3.4 H Glucose 146 H POC Glucose 137 H Lactic Acid Calcium 8.0 L Phosphorus Magnesium Total Bilirubin AST ALT Ammonia Lactate Dehydrogenase Total Creatine Kinase CK-MB (CK-2) Troponin T 0.125 H* D NT-Pro-B Natriuret Pep Total Protein Albumin Triglycerides TSH Arterial Blood Glucose Arterial Blood Ionized Calcium Urine pH Urine WBC (Auto) Urine Creatinine 10/12/20 10/12/20 10/12/20 11:39 16:01 19:49 WBC RBC Hgb Hct RDW Lymph % (Auto) Elliott % (Auto) Lymph # (Auto) Elliott # (Auto) Seg Neutrophils % Lymphocytes % (Manual) Monocytes % (Manual) Seg Neutrophils # Seg Neutrophils # Man Lymphocytes # (Manual) Monocytes # (Manual) D-Dimer Heparin Anti-Xa Level ABG pH POC ABG pCO2 POC ABG pO2 ABG pO2 ABG HCO3 ABG O2 Saturation ABG Base Excess ABG Hemoglobin ABG Oxyhemoglobin ABG Sodium ABG Potassium ABG Chloride ABG Glucose VBG pH Oxyhemoglobin Carboxyhemoglobin Sodium 157 H Potassium 3.3 L Chloride Carbon Dioxide 47 H* BUN 52 H Creatinine 3.0 H Glucose 137 H POC Glucose 138 H 119 H Lactic Acid Calcium 8.0 L Phosphorus Magnesium Total Bilirubin AST ALT Ammonia Lactate Dehydrogenase Total Creatine Kinase CK-MB (CK-2) Troponin T NT-Pro-B Natriuret Pep Total Protein Albumin Triglycerides TSH Arterial Blood Glucose Arterial Blood Ionized Calcium Urine pH Urine WBC (Auto) Urine Creatinine 10/12/20 10/13/20 10/13/20 23:37 02:28 04:52 WBC RBC Hgb Hct RDW Lymph % (Auto) Elliott % (Auto) Lymph # (Auto) Elliott # (Auto) Seg Neutrophils % Lymphocytes % (Manual) Monocytes % (Manual) Seg Neutrophils # Seg Neutrophils # Man Lymphocytes # (Manual) Monocytes # (Manual) D-Dimer Heparin Anti-Xa Level ABG pH 7.485 H POC ABG pCO2 57.1 H POC ABG pO2 ABG pO2 ABG HCO3 ABG O2 Saturation ABG Base Excess ABG Hemoglobin ABG Oxyhemoglobin ABG Sodium 152.4 H ABG Potassium ABG Chloride ABG Glucose 129 H VBG pH Oxyhemoglobin Carboxyhemoglobin Sodium 155 H Potassium Chloride Carbon Dioxide 45 H* BUN 52 H Creatinine 2.7 H Glucose 121 H POC Glucose 131 H Lactic Acid Calcium Phosphorus Magnesium 2.40 H Total Bilirubin AST ALT Ammonia Lactate Dehydrogenase Total Creatine Kinase CK-MB (CK-2) Troponin T NT-Pro-B Natriuret Pep Total Protein Albumin Triglycerides 278 H TSH Arterial Blood Glucose 129 H Arterial Blood Ionized Calcium 4.1 L Urine pH Urine WBC (Auto) Urine Creatinine 10/13/20 10/13/20 10/13/20 04:52 05:13 11:37 WBC 14.7 H RBC Hgb 11.7 L Hct RDW 15.8 H Lymph % (Auto) Elliott % (Auto) Lymph # (Auto) Elliott # (Auto) Seg Neutrophils % Lymphocytes % (Manual) Monocytes % (Manual) Seg Neutrophils # Seg Neutrophils # Man Lymphocytes # (Manual) Monocytes # (Manual) D-Dimer Heparin Anti-Xa Level ABG pH POC ABG pCO2 POC ABG pO2 ABG pO2 ABG HCO3 ABG O2 Saturation ABG Base Excess ABG Hemoglobin ABG Oxyhemoglobin ABG Sodium ABG Potassium ABG Chloride ABG Glucose VBG pH Oxyhemoglobin Carboxyhemoglobin Sodium Potassium Chloride Carbon Dioxide BUN Creatinine Glucose POC Glucose 116 H 116 H Lactic Acid Calcium Phosphorus Magnesium Total Bilirubin AST ALT Ammonia Lactate Dehydrogenase Total Creatine Kinase CK-MB (CK-2) Troponin T NT-Pro-B Natriuret Pep Total Protein Albumin Triglycerides TSH Arterial Blood Glucose Arterial Blood Ionized Calcium Urine pH Urine WBC (Auto) Urine Creatinine 10/13/20 10/14/20 10/14/20 17:50 03:45 04:46 WBC 11.1 H RBC Hgb Hct RDW 15.3 H Lymph % (Auto) Elliott % (Auto) Lymph # (Auto) Elliott # (Auto) Seg Neutrophils % Lymphocytes % (Manual) Monocytes % (Manual) Seg Neutrophils # Seg Neutrophils # Man Lymphocytes # (Manual) Monocytes # (Manual) D-Dimer Heparin Anti-Xa Level ABG pH POC ABG pCO2 59.6 H POC ABG pO2 ABG pO2 ABG HCO3 ABG O2 Saturation ABG Base Excess ABG Hemoglobin ABG Oxyhemoglobin ABG Sodium 151.4 H ABG Potassium 3.3 L ABG Chloride ABG Glucose 138 H VBG pH Oxyhemoglobin Carboxyhemoglobin 1.6 H Sodium Potassium Chloride Carbon Dioxide BUN Creatinine Glucose POC Glucose 140 H Lactic Acid Calcium Phosphorus Magnesium Total Bilirubin AST ALT Ammonia Lactate Dehydrogenase Total Creatine Kinase CK-MB (CK-2) Troponin T NT-Pro-B Natriuret Pep Total Protein Albumin Triglycerides TSH Arterial Blood Glucose 138 H Arterial Blood Ionized Calcium 4.5 L Urine pH Urine WBC (Auto) Urine Creatinine 10/14/20 10/14/20 10/14/20 04:46 05:10 11:11 WBC RBC Hgb Hct RDW Lymph % (Auto) Elliott % (Auto) Lymph # (Auto) Elliott # (Auto) Seg Neutrophils % Lymphocytes % (Manual) Monocytes % (Manual) Seg Neutrophils # Seg Neutrophils # Man Lymphocytes # (Manual) Monocytes # (Manual) D-Dimer Heparin Anti-Xa Level ABG pH POC ABG pCO2 POC ABG pO2 ABG pO2 ABG HCO3 ABG O2 Saturation ABG Base Excess ABG Hemoglobin ABG Oxyhemoglobin ABG Sodium ABG Potassium ABG Chloride ABG Glucose VBG pH Oxyhemoglobin Carboxyhemoglobin Sodium 152 H Potassium 3.5 L Chloride Carbon Dioxide 38 H D BUN 46 H Creatinine 2.3 H Glucose 127 H POC Glucose 116 H 114 H Lactic Acid Calcium Phosphorus Magnesium Total Bilirubin AST ALT Ammonia Lactate Dehydrogenase Total Creatine Kinase CK-MB (CK-2) Troponin T NT-Pro-B Natriuret Pep Total Protein Albumin Triglycerides TSH Arterial Blood Glucose Arterial Blood Ionized Calcium Urine pH Urine WBC (Auto) Urine Creatinine 10/14/20 10/14/20 10/15/20 18:53 23:23 04:12 WBC RBC Hgb Hct RDW Lymph % (Auto) Elliott % (Auto) Lymph # (Auto) Elliott # (Auto) Seg Neutrophils % Lymphocytes % (Manual) Monocytes % (Manual) Seg Neutrophils # Seg Neutrophils # Man Lymphocytes # (Manual) Monocytes # (Manual) D-Dimer Heparin Anti-Xa Level ABG pH POC ABG pCO2 POC ABG pO2 ABG pO2 ABG HCO3 ABG O2 Saturation ABG Base Excess ABG Hemoglobin ABG Oxyhemoglobin ABG Sodium ABG Potassium ABG Chloride ABG Glucose VBG pH Oxyhemoglobin Carboxyhemoglobin Sodium 149 H Potassium 3.2 L Chloride Carbon Dioxide 37 H BUN 40 H Creatinine 2.0 H Glucose 124 H POC Glucose 128 H 113 H Lactic Acid Calcium Phosphorus Magnesium Total Bilirubin AST ALT Ammonia Lactate Dehydrogenase Total Creatine Kinase CK-MB (CK-2) Troponin T NT-Pro-B Natriuret Pep Total Protein Albumin Triglycerides TSH Arterial Blood Glucose Arterial Blood Ionized Calcium Urine pH Urine WBC (Auto) Urine Creatinine 10/15/20 10/15/20 10/15/20 04:22 11:39 17:36 WBC RBC Hgb Hct RDW Lymph % (Auto) Elliott % (Auto) Lymph # (Auto) Elliott # (Auto) Seg Neutrophils % Lymphocytes % (Manual) Monocytes % (Manual) Seg Neutrophils # Seg Neutrophils # Man Lymphocytes # (Manual) Monocytes # (Manual) D-Dimer Heparin Anti-Xa Level ABG pH POC ABG pCO2 POC ABG pO2 ABG pO2 115.0 H ABG HCO3 38.1 H ABG O2 Saturation ABG Base Excess 11.3 H ABG Hemoglobin 11.0 L ABG Oxyhemoglobin ABG Sodium ABG Potassium ABG Chloride ABG Glucose VBG pH Oxyhemoglobin Carboxyhemoglobin Sodium Potassium Chloride Carbon Dioxide BUN Creatinine Glucose POC Glucose 123 H 118 H Lactic Acid Calcium Phosphorus Magnesium Total Bilirubin AST ALT Ammonia Lactate Dehydrogenase Total Creatine Kinase CK-MB (CK-2) Troponin T NT-Pro-B Natriuret Pep Total Protein Albumin Triglycerides TSH Arterial Blood Glucose Arterial Blood Ionized Calcium Urine pH Urine WBC (Auto) Urine Creatinine 10/15/20 10/16/20 10/16/20 23:18 03:13 05:10 WBC RBC Hgb Hct RDW Lymph % (Auto) Elliott % (Auto) Lymph # (Auto) Elliott # (Auto) Seg Neutrophils % Lymphocytes % (Manual) Monocytes % (Manual) Seg Neutrophils # Seg Neutrophils # Man Lymphocytes # (Manual) Monocytes # (Manual) D-Dimer Heparin Anti-Xa Level ABG pH POC ABG pCO2 POC ABG pO2 ABG pO2 104.5 H ABG HCO3 35.1 H ABG O2 Saturation ABG Base Excess 9.5 H ABG Hemoglobin 7.9 L ABG Oxyhemoglobin ABG Sodium ABG Potassium ABG Chloride ABG Glucose VBG pH Oxyhemoglobin Carboxyhemoglobin Sodium Potassium 3.3 L Chloride Carbon Dioxide 33 H BUN 37 H Creatinine 1.4 H Glucose 148 H POC Glucose 135 H Lactic Acid Calcium Phosphorus Magnesium 2.40 H Total Bilirubin AST ALT Ammonia Lactate Dehydrogenase Total Creatine Kinase CK-MB (CK-2) Troponin T NT-Pro-B Natriuret Pep Total Protein Albumin Triglycerides TSH Arterial Blood Glucose Arterial Blood Ionized Calcium Urine pH Urine WBC (Auto) Urine Creatinine 10/16/20 10/16/20 10/16/20 06:36 11:08 17:07 WBC RBC Hgb Hct RDW Lymph % (Auto) Elliott % (Auto) Lymph # (Auto) Elliott # (Auto) Seg Neutrophils % Lymphocytes % (Manual) Monocytes % (Manual) Seg Neutrophils # Seg Neutrophils # Man Lymphocytes # (Manual) Monocytes # (Manual) D-Dimer Heparin Anti-Xa Level ABG pH POC ABG pCO2 POC ABG pO2 ABG pO2 ABG HCO3 ABG O2 Saturation ABG Base Excess ABG Hemoglobin ABG Oxyhemoglobin ABG Sodium ABG Potassium ABG Chloride ABG Glucose VBG pH Oxyhemoglobin Carboxyhemoglobin Sodium Potassium Chloride Carbon Dioxide BUN Creatinine Glucose POC Glucose 150 H 111 H 132 H Lactic Acid Calcium Phosphorus Magnesium Total Bilirubin AST ALT Ammonia Lactate Dehydrogenase Total Creatine Kinase CK-MB (CK-2) Troponin T NT-Pro-B Natriuret Pep Total Protein Albumin Triglycerides TSH Arterial Blood Glucose Arterial Blood Ionized Calcium Urine pH Urine WBC (Auto) Urine Creatinine 10/16/20 10/17/20 10/17/20 23:38 03:32 03:32 WBC RBC Hgb Hct RDW Lymph % (Auto) Elliott % (Auto) Lymph # (Auto) Elliott # (Auto) Seg Neutrophils % Lymphocytes % (Manual) Monocytes % (Manual) Seg Neutrophils # Seg Neutrophils # Man Lymphocytes # (Manual) Monocytes # (Manual) D-Dimer Heparin Anti-Xa Level ABG pH POC ABG pCO2 POC ABG pO2 ABG pO2 ABG HCO3 ABG O2 Saturation ABG Base Excess ABG Hemoglobin ABG Oxyhemoglobin ABG Sodium ABG Potassium ABG Chloride ABG Glucose VBG pH Oxyhemoglobin Carboxyhemoglobin Sodium 146 H Potassium Chloride Carbon Dioxide 32 H BUN 57 H Creatinine 2.4 H D Glucose 124 H POC Glucose 117 H Lactic Acid Calcium Phosphorus 5.20 H D Magnesium Total Bilirubin AST ALT Ammonia Lactate Dehydrogenase Total Creatine Kinase CK-MB (CK-2) Troponin T NT-Pro-B Natriuret Pep Total Protein Albumin Triglycerides TSH Arterial Blood Glucose Arterial Blood Ionized Calcium Urine pH Urine WBC (Auto) Urine Creatinine 10/17/20 10/17/20 10/18/20 05:10 17:33 00:13 WBC RBC Hgb Hct RDW Lymph % (Auto) Elliott % (Auto) Lymph # (Auto) Elliott # (Auto) Seg Neutrophils % Lymphocytes % (Manual) Monocytes % (Manual) Seg Neutrophils # Seg Neutrophils # Man Lymphocytes # (Manual) Monocytes # (Manual) D-Dimer Heparin Anti-Xa Level ABG pH POC ABG pCO2 POC ABG pO2 ABG pO2 ABG HCO3 ABG O2 Saturation ABG Base Excess ABG Hemoglobin ABG Oxyhemoglobin ABG Sodium ABG Potassium ABG Chloride ABG Glucose VBG pH Oxyhemoglobin Carboxyhemoglobin Sodium Potassium Chloride Carbon Dioxide BUN Creatinine Glucose POC Glucose 122 H 121 H 23 L Lactic Acid Calcium Phosphorus Magnesium Total Bilirubin AST ALT Ammonia Lactate Dehydrogenase Total Creatine Kinase CK-MB (CK-2) Troponin T NT-Pro-B Natriuret Pep Total Protein Albumin Triglycerides TSH Arterial Blood Glucose Arterial Blood Ionized Calcium Urine pH Urine WBC (Auto) Urine Creatinine 10/18/20 10/18/20 10/18/20 00:16 03:27 03:27 WBC RBC Hgb 11.7 L Hct RDW Lymph % (Auto) Elliott % (Auto) Lymph # (Auto) Elliott # (Auto) Seg Neutrophils % Lymphocytes % (Manual) Monocytes % (Manual) Seg Neutrophils # Seg Neutrophils # Man Lymphocytes # (Manual) Monocytes # (Manual) D-Dimer Heparin Anti-Xa Level ABG pH POC ABG pCO2 POC ABG pO2 ABG pO2 ABG HCO3 ABG O2 Saturation ABG Base Excess ABG Hemoglobin ABG Oxyhemoglobin ABG Sodium ABG Potassium ABG Chloride ABG Glucose VBG pH Oxyhemoglobin Carboxyhemoglobin Sodium Potassium Chloride 97.6 L Carbon Dioxide BUN 90 H Creatinine 3.3 H Glucose 146 H POC Glucose 134 H Lactic Acid Calcium Phosphorus Magnesium Total Bilirubin 1.70 H AST ALT Ammonia Lactate Dehydrogenase Total Creatine Kinase CK-MB (CK-2) Troponin T NT-Pro-B Natriuret Pep Total Protein Albumin 3.1 L Triglycerides TSH Arterial Blood Glucose Arterial Blood Ionized Calcium Urine pH Urine WBC (Auto) Urine Creatinine 10/18/20 10/18/2021 05:09 11:19 17:15 WBC RBC Hgb Hct RDW Lymph % (Auto) Elliott % (Auto) Lymph # (Auto) Elliott # (Auto) Seg Neutrophils % Lymphocytes % (Manual) Monocytes % (Manual) Seg Neutrophils # Seg Neutrophils # Man Lymphocytes # (Manual) Monocytes # (Manual) D-Dimer Heparin Anti-Xa Level ABG pH POC ABG pCO2 POC ABG pO2 ABG pO2 ABG HCO3 ABG O2 Saturation ABG Base Excess ABG Hemoglobin ABG Oxyhemoglobin ABG Sodium ABG Potassium ABG Chloride ABG Glucose VBG pH Oxyhemoglobin Carboxyhemoglobin Sodium Potassium Chloride Carbon Dioxide BUN Creatinine Glucose POC Glucose 144 H 145 H 151 H Lactic Acid Calcium Phosphorus Magnesium Total Bilirubin AST ALT Ammonia Lactate Dehydrogenase Total Creatine Kinase CK-MB (CK-2) Troponin T NT-Pro-B Natriuret Pep Total Protein Albumin Triglycerides TSH Arterial Blood Glucose Arterial Blood Ionized Calcium Urine pH Urine WBC (Auto) Urine Creatinine 10/18/20 10/18/20 10/19/20 23:16 Unknown 04:55 WBC RBC Hgb Hct RDW Lymph % (Auto) Elliott % (Auto) Lymph # (Auto) Elliott # (Auto) Seg Neutrophils % Lymphocytes % (Manual) Monocytes % (Manual) Seg Neutrophils # Seg Neutrophils # Man Lymphocytes # (Manual) Monocytes # (Manual) D-Dimer Heparin Anti-Xa Level ABG pH POC ABG pCO2 POC ABG pO2 ABG pO2 ABG HCO3 ABG O2 Saturation ABG Base Excess ABG Hemoglobin ABG Oxyhemoglobin ABG Sodium ABG Potassium ABG Chloride ABG Glucose VBG pH Oxyhemoglobin Carboxyhemoglobin Sodium Potassium Chloride Carbon Dioxide BUN 104 H Creatinine 3.1 H Glucose 139 H POC Glucose 123 H Lactic Acid Calcium Phosphorus Magnesium Total Bilirubin AST ALT Ammonia Lactate Dehydrogenase Total Creatine Kinase CK-MB (CK-2) Troponin T NT-Pro-B Natriuret Pep Total Protein Albumin Triglycerides TSH Arterial Blood Glucose Arterial Blood Ionized Calcium Urine pH Urine WBC (Auto) 115.0 H Urine Creatinine 10/19/20 10/19/20 10/19/20 04:55 11:35 13:14 WBC 15.1 H RBC Hgb 11.1 L Hct 34.4 L RDW Lymph % (Auto) 4.2 L Elliott % (Auto) 11.9 H Lymph # (Auto) 0.6 L Elliott # (Auto) 1.8 H Seg Neutrophils % 82.0 H Lymphocytes % (Manual) Monocytes % (Manual) Seg Neutrophils # 12.4 H Seg Neutrophils # Man Lymphocytes # (Manual) Monocytes # (Manual) D-Dimer Heparin Anti-Xa Level ABG pH POC ABG pCO2 POC ABG pO2 ABG pO2 ABG HCO3 ABG O2 Saturation ABG Base Excess ABG Hemoglobin ABG Oxyhemoglobin ABG Sodium ABG Potassium ABG Chloride ABG Glucose VBG pH Oxyhemoglobin Carboxyhemoglobin Sodium Potassium Chloride Carbon Dioxide BUN Creatinine Glucose POC Glucose 136 H Lactic Acid Calcium Phosphorus Magnesium Total Bilirubin AST ALT Ammonia Lactate Dehydrogenase Total Creatine Kinase CK-MB (CK-2) Troponin T NT-Pro-B Natriuret Pep Total Protein Albumin Triglycerides TSH Arterial Blood Glucose Arterial Blood Ionized Calcium Urine pH Urine WBC (Auto) Urine Creatinine 93.7 H 10/19/20 10/19/20 10/20/20 17:53 23:39 04:30 WBC RBC Hgb Hct RDW Lymph % (Auto) Elliott % (Auto) Lymph # (Auto) Elliott # (Auto) Seg Neutrophils % Lymphocytes % (Manual) Monocytes % (Manual) Seg Neutrophils # Seg Neutrophils # Man Lymphocytes # (Manual) Monocytes # (Manual) D-Dimer Heparin Anti-Xa Level ABG pH POC ABG pCO2 POC ABG pO2 ABG pO2 ABG HCO3 ABG O2 Saturation ABG Base Excess ABG Hemoglobin ABG Oxyhemoglobin ABG Sodium ABG Potassium ABG Chloride ABG Glucose VBG pH Oxyhemoglobin Carboxyhemoglobin Sodium Potassium Chloride Carbon Dioxide BUN 104 H Creatinine 2.8 H Glucose 151 H POC Glucose 137 H 133 H Lactic Acid Calcium Phosphorus Magnesium Total Bilirubin AST ALT Ammonia Lactate Dehydrogenase Total Creatine Kinase CK-MB (CK-2) Troponin T NT-Pro-B Natriuret Pep Total Protein Albumin Triglycerides TSH Arterial Blood Glucose Arterial Blood Ionized Calcium Urine pH Urine WBC (Auto) Urine Creatinine 10/20/20 10/20/20 10/20/20 04:30 05:38 11:34 WBC 17.9 H RBC Hgb 11.7 L Hct RDW Lymph % (Auto) Elliott % (Auto) Lymph # (Auto) Elliott # (Auto) Seg Neutrophils % Lymphocytes % (Manual) Monocytes % (Manual) Seg Neutrophils # Seg Neutrophils # Man Lymphocytes # (Manual) Monocytes # (Manual) D-Dimer Heparin Anti-Xa Level ABG pH POC ABG pCO2 POC ABG pO2 ABG pO2 ABG HCO3 ABG O2 Saturation ABG Base Excess ABG Hemoglobin ABG Oxyhemoglobin ABG Sodium ABG Potassium ABG Chloride ABG Glucose VBG pH Oxyhemoglobin Carboxyhemoglobin Sodium Potassium Chloride Carbon Dioxide BUN Creatinine Glucose POC Glucose 164 H 148 H Lactic Acid Calcium Phosphorus Magnesium Total Bilirubin AST ALT Ammonia Lactate Dehydrogenase Total Creatine Kinase CK-MB (CK-2) Troponin T NT-Pro-B Natriuret Pep Total Protein Albumin Triglycerides TSH Arterial Blood Glucose Arterial Blood Ionized Calcium Urine pH Urine WBC (Auto) Urine Creatinine 10/20/20 10/20/20 10/20/20 17:40 20:20 23:29 WBC RBC Hgb Hct RDW Lymph % (Auto) Elliott % (Auto) Lymph # (Auto) Elliott # (Auto) Seg Neutrophils % Lymphocytes % (Manual) Monocytes % (Manual) Seg Neutrophils # Seg Neutrophils # Man Lymphocytes # (Manual) Monocytes # (Manual) D-Dimer Heparin Anti-Xa Level ABG pH 7.292 L POC ABG pCO2 68.5 H POC ABG pO2 ABG pO2 ABG HCO3 ABG O2 Saturation ABG Base Excess ABG Hemoglobin 11.6 L ABG Oxyhemoglobin ABG Sodium ABG Potassium ABG Chloride ABG Glucose 145 H VBG pH Oxyhemoglobin Carboxyhemoglobin Sodium Potassium Chloride Carbon Dioxide BUN Creatinine Glucose POC Glucose 130 H 136 H Lactic Acid Calcium Phosphorus Magnesium Total Bilirubin AST ALT Ammonia Lactate Dehydrogenase Total Creatine Kinase CK-MB (CK-2) Troponin T NT-Pro-B Natriuret Pep Total Protein Albumin Triglycerides TSH Arterial Blood Glucose 145 H Arterial Blood Ionized Calcium Urine pH Urine WBC (Auto) Urine Creatinine 10/21/20 10/21/20 10/21/20 04:20 06:26 06:30 WBC RBC Hgb Hct RDW Lymph % (Auto) Elliott % (Auto) Lymph # (Auto) Elliott # (Auto) Seg Neutrophils % Lymphocytes % (Manual) Monocytes % (Manual) Seg Neutrophils # Seg Neutrophils # Man Lymphocytes # (Manual) Monocytes # (Manual) D-Dimer Heparin Anti-Xa Level ABG pH 7.262 L POC ABG pCO2 72.4 H POC ABG pO2 81.6 L ABG pO2 ABG HCO3 ABG O2 Saturation ABG Base Excess ABG Hemoglobin 11.6 L ABG Oxyhemoglobin ABG Sodium ABG Potassium ABG Chloride ABG Glucose 140 H VBG pH Oxyhemoglobin Carboxyhemoglobin Sodium Potassium Chloride Carbon Dioxide 33 H BUN 104 H Creatinine 2.9 H Glucose 153 H POC Glucose 128 H Lactic Acid Calcium Phosphorus Magnesium Total Bilirubin AST ALT Ammonia Lactate Dehydrogenase Total Creatine Kinase CK-MB (CK-2) Troponin T NT-Pro-B Natriuret Pep Total Protein Albumin Triglycerides TSH Arterial Blood Glucose 140 H Arterial Blood Ionized Calcium Urine pH Urine WBC (Auto) Urine Creatinine 10/21/20 06:30 WBC 13.3 H RBC Hgb 10.7 L Hct 32.7 L RDW Lymph % (Auto) Elliott % (Auto) Lymph # (Auto) Elliott # (Auto) Seg Neutrophils % Lymphocytes % (Manual) Monocytes % (Manual) Seg Neutrophils # Seg Neutrophils # Man Lymphocytes # (Manual) Monocytes # (Manual) D-Dimer Heparin Anti-Xa Level ABG pH POC ABG pCO2 POC ABG pO2 ABG pO2 ABG HCO3 ABG O2 Saturation ABG Base Excess ABG Hemoglobin ABG Oxyhemoglobin ABG Sodium ABG Potassium ABG Chloride ABG Glucose VBG pH Oxyhemoglobin Carboxyhemoglobin Sodium Potassium Chloride Carbon Dioxide BUN Creatinine Glucose POC Glucose Lactic Acid Calcium Phosphorus Magnesium Total Bilirubin AST ALT Ammonia Lactate Dehydrogenase Total Creatine Kinase CK-MB (CK-2) Troponin T NT-Pro-B Natriuret Pep Total Protein Albumin Triglycerides TSH Arterial Blood Glucose Arterial Blood Ionized Calcium Urine pH Urine WBC (Auto) Urine Creatinine
--- NOTE | 2020-10-21 11:10 | Progress Note ---
Assessment and Plan Pt remains intubated, not sedated, intermittent blinking of eyes to painful stimulus (sternal rub) noted. Neurology f/u noted. tele reviewed - in AFib/AFlutter HR 90s. BPs elevated. Optimize HR and BPs - increase PO lopressor to TID and d/c amio gtt this evening. No systemic AC at this time in regards to AFib/AFlutter given h/o GI bleeding while on heparin gtt. Will defer recommendations regarding resumption of systemic AC to GI team. Renal indices remain elevated - follow nephrology recs. Continue supportive measures. 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 Overall guarded prognosis. The patient has been seen in conjunction with Dr. Mercedes who agrees with the assessment and plan of care. - Patient Problems (1) AMS (altered mental status) Current Visit: Yes Status: Acute (2) Cardiopulmonary arrest with successful resuscitation Current Visit: Yes Status: Acute (3) Acute respiratory failure Current Visit: Yes Status: Acute Qualifiers: Respiratory failure complication: hypoxia and hypercapnia Qualified Code(s): J96.01 - Acute respiratory failure with hypoxia; J96.02 - Acute respiratory failure with hypercapnia (4) Bilateral pneumonia Current Visit: Yes Status: Acute (5) Sepsis with hypotension Current Visit: Yes Status: Acute (6) Person under investigation for COVID-19 Current Visit: Yes Status: Ruled-out (7) Seizure Current Visit: Yes Status: Suspected (8) NSTEMI (non-ST elevated myocardial infarction) Current Visit: Yes Status: Acute (9) MOE (acute kidney injury) Current Visit: Yes Status: Acute (10) GI bleed Current Visit: Yes Status: Acute (11) Acute heart failure with preserved ejection fraction (HFpEF) Current Visit: Yes Status: Acute (12) Hypernatremia Current Visit: Yes Status: Acute (13) Atrial fibrillation and flutter Current Visit: Yes Status: Acute Subjective Date of service: 10/21/20 Principal diagnosis: Cardiac arrest; Septic Shock; Ac. hypoxemic & hypercapnic resp failure; MOE Interval history: pt remains intubated, not sedated, intermittent blinking of eyes to painful stimulus (sternal rub) noted. tele reviewed - in AFib/AFlutter HR 90s. amio gtt infusing. Objective Last Vital Signs Temp 98.6 F 10/21/20 08:00 Pulse 103 H 10/21/20 10:30 Resp 15 10/21/20 10:30 BP 139/98 10/21/20 10:30 Pulse Ox 97 10/21/20 10:30 - Physical Examination General: Other (intubated) HEENT: Positive: Normocephaly Neck: Positive: neck supple, trachea midline Cardiac: Positive: irregularly irregular, S1/S2 Lungs: Positive: Decreased Breath Sounds Neuro: Positive: Other (intubated) Abdomen: Positive: Soft Skin: Negative: Rash Extremities: Present: lower extr. pulses. Absent: edema - Labs and Meds CBC 10/21/20 Range/Units 06:30 WBC 13.3 H (4.5-11.0) K/mm3 RBC 3.68 (3.65-5.03) M/mm3 Hgb 10.7 L (11.8-15.2) gm/dl Hct 32.7 L (35.5-45.6) % Plt Count 255 (140-440) K/mm3 Comprehensive Metabolic Panel 10/21/20 Range/Units 06:30 Sodium 142 (137-145) mmol/L Potassium 3.9 (3.6-5.0) mmol/L Chloride 102.5 (98-107) mmol/L Carbon Dioxide 33 H (22-30) mmol/L BUN 104 H (9-20) mg/dL Creatinine 2.9 H (0.8-1.3) mg/dL Glucose 153 H (75-100) mg/dL Calcium 9.1 (8.4-10.2) mg/dL - Imaging and Cardiology EKG: report reviewed, image reviewed Echo: report reviewed (10/10/2020 - mod LVH, EF 55-60%, mild diastolic dysfunction) - Telemetry EKG Rhythm: Atrial Fibrillation - EKG Sinus rhythms and dysrhythmias: sinus rhythm Repolarization changes or abnormalities: ST suggestive of injury, Q-T interval prolongation - Allied health notes Allied health notes reviewed: nursing
--- NOTE | 2020-10-21 11:41 | Progress Note ---
Assessment and Plan Cultures: SARS CoV2 PCR: negative. 10/10/2020 blood culture: No growth 10/10/2020 ET aspirate culture: Usual respiratory antonio 10/11/2020 urine culture: no growth 10/18/2020 blood culture: No growth today 10/18/2020 tracheal aspirate date: MRSA A/P: 55-year-old male with hypertension, asthma, obesity came into the emergency room after receiving the Covid vaccine and passing out in the car at the emergency room bay. Patient was found to be unresponsive with no pulse, ACLS was initiated: #Sepsis, likely secondary to pneumonia. COVID negative. No fever for 24 hours, leukocytosis is downtrending, noted right nostril copious purulunce on 10/18-10/20. ?sinusitis +/- UTI +/-MRSA pneumonia. #Right-sided pneumonia: Possible aspiration during ACLS. Procalcitonin low. Chest x-ray with persistent lung opacities. Tracheal aspirate now with MRSA. Patient with persistent fever. Completed 9 days of cefepime. #Acute hypoxic respiratory failure: On mechanical ventilation. #MOE: Renally dose antibiotics. Worsening. Renal on board. #Elevated LFTs: Likely from sepsis #Urine tox screen positive for THC #Possible sinusitis from endotracheal intubation and mechanical ventilation: Initial CT head did not reveal any evidence of sinusitis. Patient is already on antibiotics. #Acute encephalopathy: neurology on board, evaluation in process. #UTI: Urine culture no growth. Repeat UA with worsening pyuria. Completed 9 days of cefepime. #Encephalopathy: Neurology on board. Recs: -Obtain right nostril culture -ordered yesterday -Sinus CT when feasible -Monitor fever -Completed 9 days of cefepime on 10/20/2020 -Continue linezolid 600 g IV twice a day total 10 days will follow MD [facility] ([facility]) Office [phone] Subjective Date of service: 10/21/20 Principal diagnosis: Cardiac arrest; Septic Shock; Ac. hypoxemic & hypercapnic resp failure; MOE Interval history: Remains intubated, no fever for 24 hours, Objective - Exam Narrative Exam: General appearance: Open eyes, intubated Eyes: anicteric sclerae, moist conjunctivae; no lid-lag; PERRLA HENT: Normocephalic, Atraumatic; normal external ears, oropharynx endotracheal tube in place Neck: supple, tracheal midline, no JVD Lungs: Bilateral rhonchi CV: RRR no murmur Abdomen: Soft, nontender Extremities: no edema, no cyanosis Skin: No rash. Psych: No agitated Neuro: Alert does not follow commands - Constitutional Vitals: Vital Signs Temp Pulse Resp BP Pulse Ox 98.6 F 103 H 15 139/98 97 10/21/20 08:00 10/21/20 10:30 10/21/20 10:30 10/21/20 10:30 10/21/20 10:30 Temperature -Last 24 Hours Temperature 98.6 F Temperature 98.4 F Temperature 99.8 F Temperature 99.4 F Temperature 99.5 F Temperature 99.8 F Temperature 100.5 F - Labs CBC & Chem 7: 10/21/20 06:30 10/21/20 06:30 Labs: Abnormal lab results 10/20/20 10/20/20 10/20/20 Range/Units 11:34 17:40 20:20 WBC (4.5-11.0) K/mm3 Hgb (11.8-15.2) gm/dl Hct (35.5-45.6) % ABG pH 7.292 L (7.320-7.450) POC ABG pCO2 68.5 H (32.0-48.0) mmHg POC ABG pO2 (83-108) mmHg ABG Hemoglobin 11.6 L (12.0-17.5) ABG Glucose 145 H (65-95) mg/dL Carbon Dioxide (22-30) mmol/L BUN (9-20) mg/dL Creatinine (0.8-1.3) mg/dL Glucose (75-100) mg/dL POC Glucose 148 H 130 H (70-105) mg/dL Arterial Blood Glucose 145 H (65-95) mg/dL 10/20/20 10/21/20 10/21/20 Range/Units 23:29 04:20 06:26 WBC (4.5-11.0) K/mm3 Hgb (11.8-15.2) gm/dl Hct (35.5-45.6) % ABG pH 7.262 L (7.320-7.450) POC ABG pCO2 72.4 H (32.0-48.0) mmHg POC ABG pO2 81.6 L (83-108) mmHg ABG Hemoglobin 11.6 L (12.0-17.5) ABG Glucose 140 H (65-95) mg/dL Carbon Dioxide (22-30) mmol/L BUN (9-20) mg/dL Creatinine (0.8-1.3) mg/dL Glucose (75-100) mg/dL POC Glucose 136 H 128 H (70-105) mg/dL Arterial Blood Glucose 140 H (65-95) mg/dL 10/21/20 10/21/20 10/21/20 Range/Units 06:30 06:30 11:24 WBC 13.3 H (4.5-11.0) K/mm3 Hgb 10.7 L (11.8-15.2) gm/dl Hct 32.7 L (35.5-45.6) % ABG pH (7.320-7.450) POC ABG pCO2 (32.0-48.0) mmHg POC ABG pO2 (83-108) mmHg ABG Hemoglobin (12.0-17.5) ABG Glucose (65-95) mg/dL Carbon Dioxide 33 H (22-30) mmol/L BUN 104 H (9-20) mg/dL Creatinine 2.9 H (0.8-1.3) mg/dL Glucose 153 H (75-100) mg/dL POC Glucose 178 H (70-105) mg/dL Arterial Blood Glucose (65-95) mg/dL
--- NOTE | 2020-10-21 11:59 | Progress Note ---
Assessment and Plan Cardiac arrest x3 with ROSC Severe septic and cardiogenic shock Acute respiratory failure with hypoxia and hypercarbia on MVS Acute pulmonary edema MOE (acute kidney injury) Lactic acidosis, severe metabolic acidosis Bilateral pneumonia, aspiration pneumonia Elevated troponins -ABG and CXR as clinically indicated, Get CXR and ABG in the morning. He may need to tolerate some degree of renal failure to optimize pulmonary status Plan to get MRI on Saturday -VAP bundle addressed, aspiration precautions HOB >30 -probably an element of hypoxic damage, Neurology work up on going. -Titrate supplemental oxygen to keep O2 sats between 89-92% - Peep at 8, continue to monitor airway pressures closely - Lung protective strategies - continue bronchodilators with pulmonary hygiene per RT -Daily assessment for readiness to wean. SAT and SBTs daily - avoid nephrotoxins, renal dosing of all medications -Blood pressure control and management - Accuchecks with glycemic control per SSI (While critically ill target blood glucose of 140-180 mg/dL; avoid hypoglycemia) - Titrate for target RASS 0 to -1 - continue antibiotics per ID . De-escalate based on culture data and clinical response Currently on Ceftriaxone and Azithromycin - Maintenance of sleep-wake cycle, avoid delirium -Enteric nutritional support - Stress ulcer prophylaxis-Pantoprazole -VTE prophyalxis- Heparin -Mobility, off loading, frequent turning per facility protocol to prevent pressure ulcers - Monitor hemodynamics closely CONDITION: CRITICAL PROGNOSIS: GUARDED CODE STATUS: FULL CODE The high probability of a clinically significant, sudden or life-threatening deterioration of the [respiratory, cardiovascular, renal & neurologic] system(s) required my full and direct attention, intervention and personal management. The aggregate critical care time was [34 ] minutes without overlap. Time includes spent on; [x] Data Review and interpretation [x] Patient assessment and monitoring of vital signs [x] Documentation [x] Medication orders and management Subjective Date of service: 10/21/20 Principal diagnosis: Cardiac arrest; Septic Shock; Ac. hypoxemic & hypercapnic resp failure; MOE Interval history: Patient is seen today for: Cardiac arrest with ROSC; Severe septic and cardiogenic shock; Acute respiratory failure with hypoxemia and hypercarbia; Acute pulmonary edema; MOE; Lactic acidosis; severe metabolic acidosis; Bilateral pneumonia; aspiration pneumonia; Elevated troponins Seen and examined at bedside; 24hour events reviewed; nursing and respiratory care staff consulted; no adverse overnight events reported to me; resting peacefully in bed on MVS; no fevers, no vomiting, no diarrhea, tolerating tube feedings Mental status changes persist - awake but not tracking, EEG pending Unable to get MRI secondary desaturations when supine Objective Vital Signs - 12hr 10/21/20 10/21/20 10/21/20 00:00 00:30 00:32 Temperature 99.8 F H Pulse Rate 73 83 78 Pulse Rate [ 76 From Monitor] Respiratory 11 L Rate Blood Pressure 137/81 117/64 137/81 O2 Sat by Pulse 96 95 94 Oximetry 10/21/20 10/21/20 10/21/20 01:00 01:30 02:00 Temperature Pulse Rate 94 H 86 88 Pulse Rate [ From Monitor] Respiratory 12 10 L 12 Rate Blood Pressure 118/68 127/69 117/72 O2 Sat by Pulse 95 95 96 Oximetry 10/21/20 10/21/20 10/21/20 02:30 03:00 03:30 Temperature Pulse Rate 89 79 87 Pulse Rate [ From Monitor] Respiratory 11 L 11 L 8 L Rate Blood Pressure 106/71 109/73 131/87 O2 Sat by Pulse 96 96 96 Oximetry 10/21/20 10/21/20 10/21/20 04:00 04:30 05:00 Temperature 98.4 F Pulse Rate 89 87 85 Pulse Rate [ 82 From Monitor] Respiratory 11 L 11 L 8 L Rate Blood Pressure 128/75 119/71 124/73 O2 Sat by Pulse 97 94 94 Oximetry 10/21/20 10/21/20 10/21/20 05:30 05:33 06:00 Temperature Pulse Rate 84 82 104 H Pulse Rate [ From Monitor] Respiratory 9 L Rate Blood Pressure 128/79 124/73 104/83 O2 Sat by Pulse 100 96 95 Oximetry 10/21/20 10/21/20 10/21/20 06:13 06:30 07:00 Temperature Pulse Rate 102 H 105 H 101 H Pulse Rate [ From Monitor] Respiratory 9 L 10 L Rate Blood Pressure 133/70 121/64 117/67 O2 Sat by Pulse 96 96 Oximetry 10/21/20 10/21/20 10/21/20 07:30 08:00 08:30 Temperature 98.6 F Pulse Rate 104 H 104 H 105 H Pulse Rate [ 82 From Monitor] Respiratory 9 L 9 L 9 L Rate Blood Pressure 126/67 143/76 151/79 O2 Sat by Pulse 96 97 97 Oximetry 10/21/20 10/21/20 10/21/20 09:00 09:30 10:00 Temperature Pulse Rate 101 H 94 H 106 H Pulse Rate [ From Monitor] Respiratory 9 L 11 L 11 L Rate Blood Pressure 137/96 130/61 120/85 O2 Sat by Pulse 98 99 97 Oximetry 10/21/20 10/21/20 10/21/20 10:30 11:00 11:30 Temperature Pulse Rate 103 H 97 H 97 H Pulse Rate [ From Monitor] Respiratory 15 16 18 Rate Blood Pressure 139/98 159/81 166/110 O2 Sat by Pulse 97 97 97 Oximetry Constitutional: no acute distress, other (middle aged obese male with mildly increased respiratory efort at rest) Eyes: non-icteric ENT: oropharynx moist, oropharyngeal exudate pre, other (ETT 23 cm ANNIE) Neck: supple, no lymphadenopathy, no JVD Effort: mildly labored Ascultation: Bilateral: clear, diminished breath sounds, rhonchi (scant) Percussion: Bilateral: not dull Cardiovascular: regular rate and rhythm, other (S1,S2) Gastrointestinal: normoactive bowel sounds, soft, non-tender, non-distended (protuberant) Integumentary: normal Extremities: no cyanosis, no edema, pulses normal, no ischemia or petechiae Neurologic: pupils equal and round, unable to assess Psychiatric: other (unable to assess re: AMS) CBC and BMP: 10/21/20 06:30 10/22/20 06:15 ABG, PT/INR, D-dimer: ABG ABG pH 7.262 (7.320-7.450) L 10/21/20 04:20 POC ABG pCO2 72.4 mmHg (32.0-48.0) H 10/21/20 04:20 ABG pCO2 55.5 mm Hg 10/16/20 05:10 POC ABG pO2 81.6 mmHg (83-108) L 10/21/20 04:20 ABG pO2 104.5 mm Hg (80.0-90.0) H 10/16/20 05:10 POC ABG HCO3 31.9 10/21/20 04:20 ABG O2 Saturation 95.2 (0-100) 10/21/20 04:20 PT/INR, D-dimer PT 13.8 Sec. (12.2-14.9) 10/10/20 18:18 INR 1.07 (0.87-1.13) 10/10/20 18:18 D-Dimer 679.5 ng/mlDDU (0-234) H 10/10/20 10:48 Abnormal lab findings: Abnormal Labs 10/10/20 10/10/20 10/10/20 10:46 10:46 10:46 WBC RBC Hgb Hct RDW Lymph % (Auto) Mclean % (Auto) Lymph # (Auto) Mclean # (Auto) Seg Neutrophils % Lymphocytes % (Manual) Monocytes % (Manual) Seg Neutrophils # Seg Neutrophils # Man Lymphocytes # (Manual) Monocytes # (Manual) D-Dimer Heparin Anti-Xa Level ABG pH POC ABG pCO2 POC ABG pO2 ABG pO2 ABG HCO3 ABG O2 Saturation ABG Base Excess ABG Hemoglobin ABG Oxyhemoglobin ABG Sodium ABG Potassium ABG Chloride ABG Glucose VBG pH Oxyhemoglobin Carboxyhemoglobin Sodium Potassium Chloride Carbon Dioxide BUN Creatinine Glucose POC Glucose Lactic Acid 13.60 H* Calcium Phosphorus Magnesium Total Bilirubin AST ALT Ammonia 214.0 H Lactate Dehydrogenase Total Creatine Kinase CK-MB (CK-2) Troponin T NT-Pro-B Natriuret Pep Total Protein Albumin Triglycerides TSH 6.260 H Arterial Blood Glucose Arterial Blood Ionized Calcium Urine pH Urine WBC (Auto) Urine Creatinine 10/10/20 10/10/20 10/10/20 10:46 10:48 10:48 WBC RBC 5.28 H Hgb 15.5 H Hct 48.8 H RDW Lymph % (Auto) Mclean % (Auto) Lymph # (Auto) Mclean # (Auto) Seg Neutrophils % Lymphocytes % (Manual) 42.0 H Monocytes % (Manual) Seg Neutrophils # Seg Neutrophils # Man Lymphocytes # (Manual) Monocytes # (Manual) D-Dimer Heparin Anti-Xa Level ABG pH POC ABG pCO2 POC ABG pO2 ABG pO2 ABG HCO3 ABG O2 Saturation ABG Base Excess ABG Hemoglobin ABG Oxyhemoglobin ABG Sodium ABG Potassium ABG Chloride ABG Glucose VBG pH Oxyhemoglobin Carboxyhemoglobin Sodium Potassium 3.3 L Chloride 91.2 L Carbon Dioxide BUN Creatinine 1.8 H Glucose 231 H POC Glucose Lactic Acid Calcium Phosphorus Magnesium Total Bilirubin AST 60 H ALT 57 H Ammonia Lactate Dehydrogenase Total Creatine Kinase CK-MB (CK-2) Troponin T NT-Pro-B Natriuret Pep 1187 H Total Protein 9.0 H Albumin Triglycerides TSH Arterial Blood Glucose Arterial Blood Ionized Calcium Urine pH Urine WBC (Auto) Urine Creatinine 10/10/20 10/10/20 10/10/20 10:48 10:48 10:48 WBC RBC Hgb Hct RDW Lymph % (Auto) Mclean % (Auto) Lymph # (Auto) Mclean # (Auto) Seg Neutrophils % Lymphocytes % (Manual) Monocytes % (Manual) Seg Neutrophils # Seg Neutrophils # Man Lymphocytes # (Manual) Monocytes # (Manual) D-Dimer 679.5 H Heparin Anti-Xa Level ABG pH POC ABG pCO2 POC ABG pO2 ABG pO2 ABG HCO3 ABG O2 Saturation ABG Base Excess ABG Hemoglobin ABG Oxyhemoglobin ABG Sodium ABG Potassium ABG Chloride ABG Glucose VBG pH 6.870 L* Oxyhemoglobin Carboxyhemoglobin Sodium Potassium Chloride Carbon Dioxide BUN Creatinine Glucose POC Glucose Lactic Acid Calcium Phosphorus Magnesium Total Bilirubin AST ALT Ammonia Lactate Dehydrogenase 386 H Total Creatine Kinase CK-MB (CK-2) Troponin T NT-Pro-B Natriuret Pep Total Protein Albumin Triglycerides TSH Arterial Blood Glucose Arterial Blood Ionized Calcium Urine pH Urine WBC (Auto) Urine Creatinine 10/10/20 10/10/20 10/10/20 14:10 14:20 15:50 WBC RBC Hgb Hct RDW Lymph % (Auto) Mclean % (Auto) Lymph # (Auto) Mclean # (Auto) Seg Neutrophils % Lymphocytes % (Manual) Monocytes % (Manual) Seg Neutrophils # Seg Neutrophils # Man Lymphocytes # (Manual) Monocytes # (Manual) D-Dimer Heparin Anti-Xa Level ABG pH 7.175 L 7.247 L POC ABG pCO2 85.0 H POC ABG pO2 43.7 L ABG pO2 60.3 L ABG HCO3 32.0 H ABG O2 Saturation 86.1 L ABG Base Excess ABG Hemoglobin ABG Oxyhemoglobin 67.7 L ABG Sodium ABG Potassium ABG Chloride ABG Glucose 247 H VBG pH Oxyhemoglobin 84.4 L Carboxyhemoglobin Sodium Potassium Chloride Carbon Dioxide BUN Creatinine Glucose POC Glucose Lactic Acid 4.00 H* Calcium Phosphorus Magnesium Total Bilirubin AST ALT Ammonia Lactate Dehydrogenase Total Creatine Kinase CK-MB (CK-2) Troponin T NT-Pro-B Natriuret Pep Total Protein Albumin Triglycerides TSH Arterial Blood Glucose 247 H Arterial Blood Ionized Calcium 4.4 L Urine pH Urine WBC (Auto) Urine Creatinine 10/10/20 10/10/20 10/10/20 15:50 16:22 18:18 WBC RBC Hgb Hct RDW Lymph % (Auto) Mclean % (Auto) Lymph # (Auto) Mclean # (Auto) Seg Neutrophils % Lymphocytes % (Manual) Monocytes % (Manual) Seg Neutrophils # Seg Neutrophils # Man Lymphocytes # (Manual) Monocytes # (Manual) D-Dimer Heparin Anti-Xa Level ABG pH 7.171 L POC ABG pCO2 96.6 H POC ABG pO2 55.3 L ABG pO2 ABG HCO3 ABG O2 Saturation ABG Base Excess ABG Hemoglobin ABG Oxyhemoglobin 81.4 L ABG Sodium ABG Potassium ABG Chloride ABG Glucose 115 H VBG pH Oxyhemoglobin Carboxyhemoglobin Sodium Potassium Chloride Carbon Dioxide BUN Creatinine Glucose POC Glucose 132 H Lactic Acid Calcium Phosphorus Magnesium Total Bilirubin AST ALT Ammonia Lactate Dehydrogenase Total Creatine Kinase 1192 H CK-MB (CK-2) 21.7 H Troponin T 0.377 H* D NT-Pro-B Natriuret Pep Total Protein Albumin Triglycerides TSH Arterial Blood Glucose 115 H Arterial Blood Ionized Calcium Urine pH Urine WBC (Auto) Urine Creatinine 10/10/20 10/10/20 10/10/20 18:18 18:18 22:49 WBC 23.0 H RBC 5.12 H Hgb Hct RDW Lymph % (Auto) Mclean % (Auto) Lymph # (Auto) Mclean # (Auto) Seg Neutrophils % Lymphocytes % (Manual) 4.0 L Monocytes % (Manual) 9.0 H Seg Neutrophils # Seg Neutrophils # Man 13.8 H Lymphocytes # (Manual) 0.9 L Monocytes # (Manual) 2.1 H D-Dimer Heparin Anti-Xa Level ABG pH POC ABG pCO2 POC ABG pO2 ABG pO2 ABG HCO3 ABG O2 Saturation ABG Base Excess ABG Hemoglobin ABG Oxyhemoglobin ABG Sodium ABG Potassium ABG Chloride ABG Glucose VBG pH Oxyhemoglobin Carboxyhemoglobin Sodium 146 H Potassium Chloride Carbon Dioxide 34 H D BUN 27 H Creatinine 2.7 H Glucose 102 H POC Glucose Lactic Acid Calcium Phosphorus Magnesium Total Bilirubin AST 90 H ALT 66 H Ammonia Lactate Dehydrogenase Total Creatine Kinase CK-MB (CK-2) Troponin T 0.273 H* D NT-Pro-B Natriuret Pep Total Protein Albumin Triglycerides TSH Arterial Blood Glucose Arterial Blood Ionized Calcium Urine pH Urine WBC (Auto) Urine Creatinine 10/11/20 10/11/20 10/11/20 02:00 02:00 02:00 WBC 17.3 H RBC Hgb Hct RDW Lymph % (Auto) 3.9 L Mclean % (Auto) Lymph # (Auto) 0.7 L Mclean # (Auto) Seg Neutrophils % 93.0 H Lymphocytes % (Manual) Monocytes % (Manual) Seg Neutrophils # 16.1 H Seg Neutrophils # Man Lymphocytes # (Manual) Monocytes # (Manual) D-Dimer Heparin Anti-Xa Level ABG pH POC ABG pCO2 POC ABG pO2 ABG pO2 ABG HCO3 ABG O2 Saturation ABG Base Excess ABG Hemoglobin ABG Oxyhemoglobin ABG Sodium ABG Potassium ABG Chloride ABG Glucose VBG pH Oxyhemoglobin Carboxyhemoglobin Sodium 149 H Potassium 3.3 L Chloride 95.3 L Carbon Dioxide 37 H BUN 29 H Creatinine 2.6 H Glucose POC Glucose Lactic Acid Calcium Phosphorus Magnesium Total Bilirubin AST 80 H ALT 59 H Ammonia Lactate Dehydrogenase Total Creatine Kinase CK-MB (CK-2) Troponin T 0.201 H* D NT-Pro-B Natriuret Pep Total Protein Albumin 3.6 L Triglycerides TSH Arterial Blood Glucose Arterial Blood Ionized Calcium Urine pH Urine WBC (Auto) Urine Creatinine 10/11/20 10/11/20 10/11/20 03:51 08:35 11:15 WBC RBC Hgb Hct RDW Lymph % (Auto) Mclean % (Auto) Lymph # (Auto) Mclean # (Auto) Seg Neutrophils % Lymphocytes % (Manual) Monocytes % (Manual) Seg Neutrophils # Seg Neutrophils # Man Lymphocytes # (Manual) Monocytes # (Manual) D-Dimer Heparin Anti-Xa Level 0.22 L ABG pH 7.491 H POC ABG pCO2 57.6 H POC ABG pO2 ABG pO2 ABG HCO3 ABG O2 Saturation ABG Base Excess ABG Hemoglobin ABG Oxyhemoglobin ABG Sodium 150.0 H ABG Potassium 3.1 L ABG Chloride 96.0 L ABG Glucose 122 H VBG pH Oxyhemoglobin Carboxyhemoglobin Sodium Potassium Chloride Carbon Dioxide BUN Creatinine Glucose POC Glucose 151 H Lactic Acid Calcium Phosphorus Magnesium Total Bilirubin AST ALT Ammonia Lactate Dehydrogenase Total Creatine Kinase CK-MB (CK-2) Troponin T NT-Pro-B Natriuret Pep Total Protein Albumin Triglycerides TSH Arterial Blood Glucose 122 H Arterial Blood Ionized Calcium 3.9 L Urine pH Urine WBC (Auto) Urine Creatinine 10/11/20 10/11/20 10/11/20 13:30 13:30 13:30 WBC 15.0 H RBC Hgb Hct RDW Lymph % (Auto) Mclean % (Auto) Lymph # (Auto) Mclean # (Auto) Seg Neutrophils % Lymphocytes % (Manual) Monocytes % (Manual) Seg Neutrophils # Seg Neutrophils # Man Lymphocytes # (Manual) Monocytes # (Manual) D-Dimer Heparin Anti-Xa Level ABG pH POC ABG pCO2 POC ABG pO2 ABG pO2 ABG HCO3 ABG O2 Saturation ABG Base Excess ABG Hemoglobin ABG Oxyhemoglobin ABG Sodium ABG Potassium ABG Chloride ABG Glucose VBG pH Oxyhemoglobin Carboxyhemoglobin Sodium Potassium Chloride Carbon Dioxide BUN Creatinine Glucose POC Glucose Lactic Acid Calcium Phosphorus Magnesium Total Bilirubin AST ALT Ammonia Lactate Dehydrogenase Total Creatine Kinase CK-MB (CK-2) Troponin T NT-Pro-B Natriuret Pep Total Protein Albumin Triglycerides TSH Arterial Blood Glucose Arterial Blood Ionized Calcium Urine pH 9.0 H Urine WBC (Auto) 18.0 H Urine Creatinine 80.5 H 10/11/20 10/11/20 10/12/20 17:17 23:14 03:53 WBC RBC Hgb Hct RDW Lymph % (Auto) Mclean % (Auto) Lymph # (Auto) Mclean # (Auto) Seg Neutrophils % Lymphocytes % (Manual) Monocytes % (Manual) Seg Neutrophils # Seg Neutrophils # Man Lymphocytes # (Manual) Monocytes # (Manual) D-Dimer Heparin Anti-Xa Level ABG pH 7.545 H POC ABG pCO2 54.6 H POC ABG pO2 231.9 H ABG pO2 ABG HCO3 ABG O2 Saturation ABG Base Excess ABG Hemoglobin ABG Oxyhemoglobin 98.5 H ABG Sodium 150.5 H ABG Potassium 3.2 L ABG Chloride 96.0 L ABG Glucose 148 H VBG pH Oxyhemoglobin Carboxyhemoglobin Sodium Potassium Chloride Carbon Dioxide BUN Creatinine Glucose POC Glucose 121 H 135 H Lactic Acid Calcium Phosphorus Magnesium Total Bilirubin AST ALT Ammonia Lactate Dehydrogenase Total Creatine Kinase CK-MB (CK-2) Troponin T NT-Pro-B Natriuret Pep Total Protein Albumin Triglycerides TSH Arterial Blood Glucose 148 H Arterial Blood Ionized Calcium 3.8 L Urine pH Urine WBC (Auto) Urine Creatinine 10/12/20 10/12/20 10/12/20 04:00 05:10 05:12 WBC 14.3 H RBC Hgb 11.6 L Hct 35.2 L RDW Lymph % (Auto) Mclean % (Auto) Lymph # (Auto) Mclean # (Auto) Seg Neutrophils % Lymphocytes % (Manual) Monocytes % (Manual) Seg Neutrophils # Seg Neutrophils # Man Lymphocytes # (Manual) Monocytes # (Manual) D-Dimer Heparin Anti-Xa Level ABG pH POC ABG pCO2 POC ABG pO2 ABG pO2 ABG HCO3 ABG O2 Saturation ABG Base Excess ABG Hemoglobin ABG Oxyhemoglobin ABG Sodium ABG Potassium ABG Chloride ABG Glucose VBG pH Oxyhemoglobin Carboxyhemoglobin Sodium 155 H Potassium 3.3 L Chloride 97.9 L Carbon Dioxide 47 H* D BUN 50 H Creatinine 3.4 H Glucose 146 H POC Glucose 137 H Lactic Acid Calcium 8.0 L Phosphorus Magnesium Total Bilirubin AST ALT Ammonia Lactate Dehydrogenase Total Creatine Kinase CK-MB (CK-2) Troponin T 0.125 H* D NT-Pro-B Natriuret Pep Total Protein Albumin Triglycerides TSH Arterial Blood Glucose Arterial Blood Ionized Calcium Urine pH Urine WBC (Auto) Urine Creatinine 10/12/20 10/12/20 10/12/20 11:39 16:01 19:49 WBC RBC Hgb Hct RDW Lymph % (Auto) Mclean % (Auto) Lymph # (Auto) Mclean # (Auto) Seg Neutrophils % Lymphocytes % (Manual) Monocytes % (Manual) Seg Neutrophils # Seg Neutrophils # Man Lymphocytes # (Manual) Monocytes # (Manual) D-Dimer Heparin Anti-Xa Level ABG pH POC ABG pCO2 POC ABG pO2 ABG pO2 ABG HCO3 ABG O2 Saturation ABG Base Excess ABG Hemoglobin ABG Oxyhemoglobin ABG Sodium ABG Potassium ABG Chloride ABG Glucose VBG pH Oxyhemoglobin Carboxyhemoglobin Sodium 157 H Potassium 3.3 L Chloride Carbon Dioxide 47 H* BUN 52 H Creatinine 3.0 H Glucose 137 H POC Glucose 138 H 119 H Lactic Acid Calcium 8.0 L Phosphorus Magnesium Total Bilirubin AST ALT Ammonia Lactate Dehydrogenase Total Creatine Kinase CK-MB (CK-2) Troponin T NT-Pro-B Natriuret Pep Total Protein Albumin Triglycerides TSH Arterial Blood Glucose Arterial Blood Ionized Calcium Urine pH Urine WBC (Auto) Urine Creatinine 10/12/20 10/13/20 10/13/20 23:37 02:28 04:52 WBC RBC Hgb Hct RDW Lymph % (Auto) Mclean % (Auto) Lymph # (Auto) Mclean # (Auto) Seg Neutrophils % Lymphocytes % (Manual) Monocytes % (Manual) Seg Neutrophils # Seg Neutrophils # Man Lymphocytes # (Manual) Monocytes # (Manual) D-Dimer Heparin Anti-Xa Level ABG pH 7.485 H POC ABG pCO2 57.1 H POC ABG pO2 ABG pO2 ABG HCO3 ABG O2 Saturation ABG Base Excess ABG Hemoglobin ABG Oxyhemoglobin ABG Sodium 152.4 H ABG Potassium ABG Chloride ABG Glucose 129 H VBG pH Oxyhemoglobin Carboxyhemoglobin Sodium 155 H Potassium Chloride Carbon Dioxide 45 H* BUN 52 H Creatinine 2.7 H Glucose 121 H POC Glucose 131 H Lactic Acid Calcium Phosphorus Magnesium 2.40 H Total Bilirubin AST ALT Ammonia Lactate Dehydrogenase Total Creatine Kinase CK-MB (CK-2) Troponin T NT-Pro-B Natriuret Pep Total Protein Albumin Triglycerides 278 H TSH Arterial Blood Glucose 129 H Arterial Blood Ionized Calcium 4.1 L Urine pH Urine WBC (Auto) Urine Creatinine 10/13/20 10/13/20 10/13/20 04:52 05:13 11:37 WBC 14.7 H RBC Hgb 11.7 L Hct RDW 15.8 H Lymph % (Auto) Mclean % (Auto) Lymph # (Auto) Mclean # (Auto) Seg Neutrophils % Lymphocytes % (Manual) Monocytes % (Manual) Seg Neutrophils # Seg Neutrophils # Man Lymphocytes # (Manual) Monocytes # (Manual) D-Dimer Heparin Anti-Xa Level ABG pH POC ABG pCO2 POC ABG pO2 ABG pO2 ABG HCO3 ABG O2 Saturation ABG Base Excess ABG Hemoglobin ABG Oxyhemoglobin ABG Sodium ABG Potassium ABG Chloride ABG Glucose VBG pH Oxyhemoglobin Carboxyhemoglobin Sodium Potassium Chloride Carbon Dioxide BUN Creatinine Glucose POC Glucose 116 H 116 H Lactic Acid Calcium Phosphorus Magnesium Total Bilirubin AST ALT Ammonia Lactate Dehydrogenase Total Creatine Kinase CK-MB (CK-2) Troponin T NT-Pro-B Natriuret Pep Total Protein Albumin Triglycerides TSH Arterial Blood Glucose Arterial Blood Ionized Calcium Urine pH Urine WBC (Auto) Urine Creatinine 10/13/20 10/14/20 10/14/20 17:50 03:45 04:46 WBC 11.1 H RBC Hgb Hct RDW 15.3 H Lymph % (Auto) Mclean % (Auto) Lymph # (Auto) Mclean # (Auto) Seg Neutrophils % Lymphocytes % (Manual) Monocytes % (Manual) Seg Neutrophils # Seg Neutrophils # Man Lymphocytes # (Manual) Monocytes # (Manual) D-Dimer Heparin Anti-Xa Level ABG pH POC ABG pCO2 59.6 H POC ABG pO2 ABG pO2 ABG HCO3 ABG O2 Saturation ABG Base Excess ABG Hemoglobin ABG Oxyhemoglobin ABG Sodium 151.4 H ABG Potassium 3.3 L ABG Chloride ABG Glucose 138 H VBG pH Oxyhemoglobin Carboxyhemoglobin 1.6 H Sodium Potassium Chloride Carbon Dioxide BUN Creatinine Glucose POC Glucose 140 H Lactic Acid Calcium Phosphorus Magnesium Total Bilirubin AST ALT Ammonia Lactate Dehydrogenase Total Creatine Kinase CK-MB (CK-2) Troponin T NT-Pro-B Natriuret Pep Total Protein Albumin Triglycerides TSH Arterial Blood Glucose 138 H Arterial Blood Ionized Calcium 4.5 L Urine pH Urine WBC (Auto) Urine Creatinine 10/14/20 10/14/20 10/14/20 04:46 05:10 11:11 WBC RBC Hgb Hct RDW Lymph % (Auto) Mclean % (Auto) Lymph # (Auto) Mclean # (Auto) Seg Neutrophils % Lymphocytes % (Manual) Monocytes % (Manual) Seg Neutrophils # Seg Neutrophils # Man Lymphocytes # (Manual) Monocytes # (Manual) D-Dimer Heparin Anti-Xa Level ABG pH POC ABG pCO2 POC ABG pO2 ABG pO2 ABG HCO3 ABG O2 Saturation ABG Base Excess ABG Hemoglobin ABG Oxyhemoglobin ABG Sodium ABG Potassium ABG Chloride ABG Glucose VBG pH Oxyhemoglobin Carboxyhemoglobin Sodium 152 H Potassium 3.5 L Chloride Carbon Dioxide 38 H D BUN 46 H Creatinine 2.3 H Glucose 127 H POC Glucose 116 H 114 H Lactic Acid Calcium Phosphorus Magnesium Total Bilirubin AST ALT Ammonia Lactate Dehydrogenase Total Creatine Kinase CK-MB (CK-2) Troponin T NT-Pro-B Natriuret Pep Total Protein Albumin Triglycerides TSH Arterial Blood Glucose Arterial Blood Ionized Calcium Urine pH Urine WBC (Auto) Urine Creatinine 10/14/20 10/14/20 10/15/20 18:53 23:23 04:12 WBC RBC Hgb Hct RDW Lymph % (Auto) Mclean % (Auto) Lymph # (Auto) Mclean # (Auto) Seg Neutrophils % Lymphocytes % (Manual) Monocytes % (Manual) Seg Neutrophils # Seg Neutrophils # Man Lymphocytes # (Manual) Monocytes # (Manual) D-Dimer Heparin Anti-Xa Level ABG pH POC ABG pCO2 POC ABG pO2 ABG pO2 ABG HCO3 ABG O2 Saturation ABG Base Excess ABG Hemoglobin ABG Oxyhemoglobin ABG Sodium ABG Potassium ABG Chloride ABG Glucose VBG pH Oxyhemoglobin Carboxyhemoglobin Sodium 149 H Potassium 3.2 L Chloride Carbon Dioxide 37 H BUN 40 H Creatinine 2.0 H Glucose 124 H POC Glucose 128 H 113 H Lactic Acid Calcium Phosphorus Magnesium Total Bilirubin AST ALT Ammonia Lactate Dehydrogenase Total Creatine Kinase CK-MB (CK-2) Troponin T NT-Pro-B Natriuret Pep Total Protein Albumin Triglycerides TSH Arterial Blood Glucose Arterial Blood Ionized Calcium Urine pH Urine WBC (Auto) Urine Creatinine 10/15/20 10/15/20 10/15/20 04:22 11:39 17:36 WBC RBC Hgb Hct RDW Lymph % (Auto) Mclean % (Auto) Lymph # (Auto) Mclean # (Auto) Seg Neutrophils % Lymphocytes % (Manual) Monocytes % (Manual) Seg Neutrophils # Seg Neutrophils # Man Lymphocytes # (Manual) Monocytes # (Manual) D-Dimer Heparin Anti-Xa Level ABG pH POC ABG pCO2 POC ABG pO2 ABG pO2 115.0 H ABG HCO3 38.1 H ABG O2 Saturation ABG Base Excess 11.3 H ABG Hemoglobin 11.0 L ABG Oxyhemoglobin ABG Sodium ABG Potassium ABG Chloride ABG Glucose VBG pH Oxyhemoglobin Carboxyhemoglobin Sodium Potassium Chloride Carbon Dioxide BUN Creatinine Glucose POC Glucose 123 H 118 H Lactic Acid Calcium Phosphorus Magnesium Total Bilirubin AST ALT Ammonia Lactate Dehydrogenase Total Creatine Kinase CK-MB (CK-2) Troponin T NT-Pro-B Natriuret Pep Total Protein Albumin Triglycerides TSH Arterial Blood Glucose Arterial Blood Ionized Calcium Urine pH Urine WBC (Auto) Urine Creatinine 10/15/20 10/16/20 10/16/20 23:18 03:13 05:10 WBC RBC Hgb Hct RDW Lymph % (Auto) Mclean % (Auto) Lymph # (Auto) Mclean # (Auto) Seg Neutrophils % Lymphocytes % (Manual) Monocytes % (Manual) Seg Neutrophils # Seg Neutrophils # Man Lymphocytes # (Manual) Monocytes # (Manual) D-Dimer Heparin Anti-Xa Level ABG pH POC ABG pCO2 POC ABG pO2 ABG pO2 104.5 H ABG HCO3 35.1 H ABG O2 Saturation ABG Base Excess 9.5 H ABG Hemoglobin 7.9 L ABG Oxyhemoglobin ABG Sodium ABG Potassium ABG Chloride ABG Glucose VBG pH Oxyhemoglobin Carboxyhemoglobin Sodium Potassium 3.3 L Chloride Carbon Dioxide 33 H BUN 37 H Creatinine 1.4 H Glucose 148 H POC Glucose 135 H Lactic Acid Calcium Phosphorus Magnesium 2.40 H Total Bilirubin AST ALT Ammonia Lactate Dehydrogenase Total Creatine Kinase CK-MB (CK-2) Troponin T NT-Pro-B Natriuret Pep Total Protein Albumin Triglycerides TSH Arterial Blood Glucose Arterial Blood Ionized Calcium Urine pH Urine WBC (Auto) Urine Creatinine 10/16/20 10/16/20 10/16/20 06:36 11:08 17:07 WBC RBC Hgb Hct RDW Lymph % (Auto) Mclean % (Auto) Lymph # (Auto) Mclean # (Auto) Seg Neutrophils % Lymphocytes % (Manual) Monocytes % (Manual) Seg Neutrophils # Seg Neutrophils # Man Lymphocytes # (Manual) Monocytes # (Manual) D-Dimer Heparin Anti-Xa Level ABG pH POC ABG pCO2 POC ABG pO2 ABG pO2 ABG HCO3 ABG O2 Saturation ABG Base Excess ABG Hemoglobin ABG Oxyhemoglobin ABG Sodium ABG Potassium ABG Chloride ABG Glucose VBG pH Oxyhemoglobin Carboxyhemoglobin Sodium Potassium Chloride Carbon Dioxide BUN Creatinine Glucose POC Glucose 150 H 111 H 132 H Lactic Acid Calcium Phosphorus Magnesium Total Bilirubin AST ALT Ammonia Lactate Dehydrogenase Total Creatine Kinase CK-MB (CK-2) Troponin T NT-Pro-B Natriuret Pep Total Protein Albumin Triglycerides TSH Arterial Blood Glucose Arterial Blood Ionized Calcium Urine pH Urine WBC (Auto) Urine Creatinine 10/16/20 10/17/20 10/17/20 23:38 03:32 03:32 WBC RBC Hgb Hct RDW Lymph % (Auto) Mclean % (Auto) Lymph # (Auto) Mclean # (Auto) Seg Neutrophils % Lymphocytes % (Manual) Monocytes % (Manual) Seg Neutrophils # Seg Neutrophils # Man Lymphocytes # (Manual) Monocytes # (Manual) D-Dimer Heparin Anti-Xa Level ABG pH POC ABG pCO2 POC ABG pO2 ABG pO2 ABG HCO3 ABG O2 Saturation ABG Base Excess ABG Hemoglobin ABG Oxyhemoglobin ABG Sodium ABG Potassium ABG Chloride ABG Glucose VBG pH Oxyhemoglobin Carboxyhemoglobin Sodium 146 H Potassium Chloride Carbon Dioxide 32 H BUN 57 H Creatinine 2.4 H D Glucose 124 H POC Glucose 117 H Lactic Acid Calcium Phosphorus 5.20 H D Magnesium Total Bilirubin AST ALT Ammonia Lactate Dehydrogenase Total Creatine Kinase CK-MB (CK-2) Troponin T NT-Pro-B Natriuret Pep Total Protein Albumin Triglycerides TSH Arterial Blood Glucose Arterial Blood Ionized Calcium Urine pH Urine WBC (Auto) Urine Creatinine 10/17/20 10/17/20 10/18/20 05:10 17:33 00:13 WBC RBC Hgb Hct RDW Lymph % (Auto) Mclean % (Auto) Lymph # (Auto) Mclean # (Auto) Seg Neutrophils % Lymphocytes % (Manual) Monocytes % (Manual) Seg Neutrophils # Seg Neutrophils # Man Lymphocytes # (Manual) Monocytes # (Manual) D-Dimer Heparin Anti-Xa Level ABG pH POC ABG pCO2 POC ABG pO2 ABG pO2 ABG HCO3 ABG O2 Saturation ABG Base Excess ABG Hemoglobin ABG Oxyhemoglobin ABG Sodium ABG Potassium ABG Chloride ABG Glucose VBG pH Oxyhemoglobin Carboxyhemoglobin Sodium Potassium Chloride Carbon Dioxide BUN Creatinine Glucose POC Glucose 122 H 121 H 23 L Lactic Acid Calcium Phosphorus Magnesium Total Bilirubin AST ALT Ammonia Lactate Dehydrogenase Total Creatine Kinase CK-MB (CK-2) Troponin T NT-Pro-B Natriuret Pep Total Protein Albumin Triglycerides TSH Arterial Blood Glucose Arterial Blood Ionized Calcium Urine pH Urine WBC (Auto) Urine Creatinine 10/18/20 10/18/20 10/18/20 00:16 03:27 03:27 WBC RBC Hgb 11.7 L Hct RDW Lymph % (Auto) Mclean % (Auto) Lymph # (Auto) Mclean # (Auto) Seg Neutrophils % Lymphocytes % (Manual) Monocytes % (Manual) Seg Neutrophils # Seg Neutrophils # Man Lymphocytes # (Manual) Monocytes # (Manual) D-Dimer Heparin Anti-Xa Level ABG pH POC ABG pCO2 POC ABG pO2 ABG pO2 ABG HCO3 ABG O2 Saturation ABG Base Excess ABG Hemoglobin ABG Oxyhemoglobin ABG Sodium ABG Potassium ABG Chloride ABG Glucose VBG pH Oxyhemoglobin Carboxyhemoglobin Sodium Potassium Chloride 97.6 L Carbon Dioxide BUN 90 H Creatinine 3.3 H Glucose 146 H POC Glucose 134 H Lactic Acid Calcium Phosphorus Magnesium Total Bilirubin 1.70 H AST ALT Ammonia Lactate Dehydrogenase Total Creatine Kinase CK-MB (CK-2) Troponin T NT-Pro-B Natriuret Pep Total Protein Albumin 3.1 L Triglycerides TSH Arterial Blood Glucose Arterial Blood Ionized Calcium Urine pH Urine WBC (Auto) Urine Creatinine 10/18/20 10/18/20 10/18/20 05:09 11:19 17:15 WBC RBC Hgb Hct RDW Lymph % (Auto) Mclean % (Auto) Lymph # (Auto) Mclean # (Auto) Seg Neutrophils % Lymphocytes % (Manual) Monocytes % (Manual) Seg Neutrophils # Seg Neutrophils # Man Lymphocytes # (Manual) Monocytes # (Manual) D-Dimer Heparin Anti-Xa Level ABG pH POC ABG pCO2 POC ABG pO2 ABG pO2 ABG HCO3 ABG O2 Saturation ABG Base Excess ABG Hemoglobin ABG Oxyhemoglobin ABG Sodium ABG Potassium ABG Chloride ABG Glucose VBG pH Oxyhemoglobin Carboxyhemoglobin Sodium Potassium Chloride Carbon Dioxide BUN Creatinine Glucose POC Glucose 144 H 145 H 151 H Lactic Acid Calcium Phosphorus Magnesium Total Bilirubin AST ALT Ammonia Lactate Dehydrogenase Total Creatine Kinase CK-MB (CK-2) Troponin T NT-Pro-B Natriuret Pep Total Protein Albumin Triglycerides TSH Arterial Blood Glucose Arterial Blood Ionized Calcium Urine pH Urine WBC (Auto) Urine Creatinine 10/18/20 10/18/20 10/19/20 23:16 Unknown 04:55 WBC RBC Hgb Hct RDW Lymph % (Auto) Mclean % (Auto) Lymph # (Auto) Mclean # (Auto) Seg Neutrophils % Lymphocytes % (Manual) Monocytes % (Manual) Seg Neutrophils # Seg Neutrophils # Man Lymphocytes # (Manual) Monocytes # (Manual) D-Dimer Heparin Anti-Xa Level ABG pH POC ABG pCO2 POC ABG pO2 ABG pO2 ABG HCO3 ABG O2 Saturation ABG Base Excess ABG Hemoglobin ABG Oxyhemoglobin ABG Sodium ABG Potassium ABG Chloride ABG Glucose VBG pH Oxyhemoglobin Carboxyhemoglobin Sodium Potassium Chloride Carbon Dioxide BUN 104 H Creatinine 3.1 H Glucose 139 H POC Glucose 123 H Lactic Acid Calcium Phosphorus Magnesium Total Bilirubin AST ALT Ammonia Lactate Dehydrogenase Total Creatine Kinase CK-MB (CK-2) Troponin T NT-Pro-B Natriuret Pep Total Protein Albumin Triglycerides TSH Arterial Blood Glucose Arterial Blood Ionized Calcium Urine pH Urine WBC (Auto) 115.0 H Urine Creatinine 10/19/20 10/19/20 10/19/20 04:55 11:35 13:14 WBC 15.1 H RBC Hgb 11.1 L Hct 34.4 L RDW Lymph % (Auto) 4.2 L Mclean % (Auto) 11.9 H Lymph # (Auto) 0.6 L Mclean # (Auto) 1.8 H Seg Neutrophils % 82.0 H Lymphocytes % (Manual) Monocytes % (Manual) Seg Neutrophils # 12.4 H Seg Neutrophils # Man Lymphocytes # (Manual) Monocytes # (Manual) D-Dimer Heparin Anti-Xa Level ABG pH POC ABG pCO2 POC ABG pO2 ABG pO2 ABG HCO3 ABG O2 Saturation ABG Base Excess ABG Hemoglobin ABG Oxyhemoglobin ABG Sodium ABG Potassium ABG Chloride ABG Glucose VBG pH Oxyhemoglobin Carboxyhemoglobin Sodium Potassium Chloride Carbon Dioxide BUN Creatinine Glucose POC Glucose 136 H Lactic Acid Calcium Phosphorus Magnesium Total Bilirubin AST ALT Ammonia Lactate Dehydrogenase Total Creatine Kinase CK-MB (CK-2) Troponin T NT-Pro-B Natriuret Pep Total Protein Albumin Triglycerides TSH Arterial Blood Glucose Arterial Blood Ionized Calcium Urine pH Urine WBC (Auto) Urine Creatinine 93.7 H 10/19/20 10/19/20 10/20/20 17:53 23:39 04:30 WBC RBC Hgb Hct RDW Lymph % (Auto) Mclean % (Auto) Lymph # (Auto) Mclean # (Auto) Seg Neutrophils % Lymphocytes % (Manual) Monocytes % (Manual) Seg Neutrophils # Seg Neutrophils # Man Lymphocytes # (Manual) Monocytes # (Manual) D-Dimer Heparin Anti-Xa Level ABG pH POC ABG pCO2 POC ABG pO2 ABG pO2 ABG HCO3 ABG O2 Saturation ABG Base Excess ABG Hemoglobin ABG Oxyhemoglobin ABG Sodium ABG Potassium ABG Chloride ABG Glucose VBG pH Oxyhemoglobin Carboxyhemoglobin Sodium Potassium Chloride Carbon Dioxide BUN 104 H Creatinine 2.8 H Glucose 151 H POC Glucose 137 H 133 H Lactic Acid Calcium Phosphorus Magnesium Total Bilirubin AST ALT Ammonia Lactate Dehydrogenase Total Creatine Kinase CK-MB (CK-2) Troponin T NT-Pro-B Natriuret Pep Total Protein Albumin Triglycerides TSH Arterial Blood Glucose Arterial Blood Ionized Calcium Urine pH Urine WBC (Auto) Urine Creatinine 10/20/20 10/20/20 10/20/20 04:30 05:38 11:34 WBC 17.9 H RBC Hgb 11.7 L Hct RDW Lymph % (Auto) Mclean % (Auto) Lymph # (Auto) Mclean # (Auto) Seg Neutrophils % Lymphocytes % (Manual) Monocytes % (Manual) Seg Neutrophils # Seg Neutrophils # Man Lymphocytes # (Manual) Monocytes # (Manual) D-Dimer Heparin Anti-Xa Level ABG pH POC ABG pCO2 POC ABG pO2 ABG pO2 ABG HCO3 ABG O2 Saturation ABG Base Excess ABG Hemoglobin ABG Oxyhemoglobin ABG Sodium ABG Potassium ABG Chloride ABG Glucose VBG pH Oxyhemoglobin Carboxyhemoglobin Sodium Potassium Chloride Carbon Dioxide BUN Creatinine Glucose POC Glucose 164 H 148 H Lactic Acid Calcium Phosphorus Magnesium Total Bilirubin AST ALT Ammonia Lactate Dehydrogenase Total Creatine Kinase CK-MB (CK-2) Troponin T NT-Pro-B Natriuret Pep Total Protein Albumin Triglycerides TSH Arterial Blood Glucose Arterial Blood Ionized Calcium Urine pH Urine WBC (Auto) Urine Creatinine 10/20/20 10/20/20 10/20/20 17:40 20:20 23:29 WBC RBC Hgb Hct RDW Lymph % (Auto) Mclean % (Auto) Lymph # (Auto) Mclean # (Auto) Seg Neutrophils % Lymphocytes % (Manual) Monocytes % (Manual) Seg Neutrophils # Seg Neutrophils # Man Lymphocytes # (Manual) Monocytes # (Manual) D-Dimer Heparin Anti-Xa Level ABG pH 7.292 L POC ABG pCO2 68.5 H POC ABG pO2 ABG pO2 ABG HCO3 ABG O2 Saturation ABG Base Excess ABG Hemoglobin 11.6 L ABG Oxyhemoglobin ABG Sodium ABG Potassium ABG Chloride ABG Glucose 145 H VBG pH Oxyhemoglobin Carboxyhemoglobin Sodium Potassium Chloride Carbon Dioxide BUN Creatinine Glucose POC Glucose 130 H 136 H Lactic Acid Calcium Phosphorus Magnesium Total Bilirubin AST ALT Ammonia Lactate Dehydrogenase Total Creatine Kinase CK-MB (CK-2) Troponin T NT-Pro-B Natriuret Pep Total Protein Albumin Triglycerides TSH Arterial Blood Glucose 145 H Arterial Blood Ionized Calcium Urine pH Urine WBC (Auto) Urine Creatinine 10/21/20 10/21/20 10/21/20 04:20 06:26 06:30 WBC RBC Hgb Hct RDW Lymph % (Auto) Mclean % (Auto) Lymph # (Auto) Mclean # (Auto) Seg Neutrophils % Lymphocytes % (Manual) Monocytes % (Manual) Seg Neutrophils # Seg Neutrophils # Man Lymphocytes # (Manual) Monocytes # (Manual) D-Dimer Heparin Anti-Xa Level ABG pH 7.262 L POC ABG pCO2 72.4 H POC ABG pO2 81.6 L ABG pO2 ABG HCO3 ABG O2 Saturation ABG Base Excess ABG Hemoglobin 11.6 L ABG Oxyhemoglobin ABG Sodium ABG Potassium ABG Chloride ABG Glucose 140 H VBG pH Oxyhemoglobin Carboxyhemoglobin Sodium Potassium Chloride Carbon Dioxide 33 H BUN 104 H Creatinine 2.9 H Glucose 153 H POC Glucose 128 H Lactic Acid Calcium Phosphorus Magnesium Total Bilirubin AST ALT Ammonia Lactate Dehydrogenase Total Creatine Kinase CK-MB (CK-2) Troponin T NT-Pro-B Natriuret Pep Total Protein Albumin Triglycerides TSH Arterial Blood Glucose 140 H Arterial Blood Ionized Calcium Urine pH Urine WBC (Auto) Urine Creatinine 10/21/20 10/21/20 06:30 11:24 WBC 13.3 H RBC Hgb 10.7 L Hct 32.7 L RDW Lymph % (Auto) Mclean % (Auto) Lymph # (Auto) Mclean # (Auto) Seg Neutrophils % Lymphocytes % (Manual) Monocytes % (Manual) Seg Neutrophils # Seg Neutrophils # Man Lymphocytes # (Manual) Monocytes # (Manual) D-Dimer Heparin Anti-Xa Level ABG pH POC ABG pCO2 POC ABG pO2 ABG pO2 ABG HCO3 ABG O2 Saturation ABG Base Excess ABG Hemoglobin ABG Oxyhemoglobin ABG Sodium ABG Potassium ABG Chloride ABG Glucose VBG pH Oxyhemoglobin Carboxyhemoglobin Sodium Potassium Chloride Carbon Dioxide BUN Creatinine Glucose POC Glucose 178 H Lactic Acid Calcium Phosphorus Magnesium Total Bilirubin AST ALT Ammonia Lactate Dehydrogenase Total Creatine Kinase CK-MB (CK-2) Troponin T NT-Pro-B Natriuret Pep Total Protein Albumin Triglycerides TSH Arterial Blood Glucose Arterial Blood Ionized Calcium Urine pH Urine WBC (Auto) Urine Creatinine Allied health notes reviewed: RT
--- NOTE | 2020-10-21 12:07 | Progress Note ---
Assessment and Plan Assessment and plan: -Infectious disease, CCM, GI, nephrology, cardiology consulted, patient recommendations -Antibiotic therapy -10/18 recultured (blood/sputum/nasal discharge and urinalysis), tracheal aspirate with MRSA -Linezolid -Continue antihypertensive regimen (changed to p.o.), titrate as needed -s/p IV amiodarone for A. fib/a flutter now on p.o. beta-shital -Trend CBC, BMP -Urinary suggestive of prerenal, normal saline for 3 L -Continue mechanical ventilation, wean as tolerated, VAP bundle -Avoid nephrotoxic medications, strict intake and output, renal ultrasound shows no obstruction -Trend LFTs -10/10 echocardiogram shows left internal systolic function normal, moderate concentric left ventricle hypertrophy, mild to side diastolic dysfunction, LVEF 55 to 60% with no pericardial effusion -Bilateral Doppler ultrasound negative for DVT/SVT which shows bilateral popliteal cysts GI/DVT prophylaxis: SCDs to bilateral lower extremities while in bed, PPI, Heparin subq Dispo: ICU The high probability of a clinically significant, sudden or life threatening deterioration of the [multi] system(s) required my full and direct attention, intervention and personal management. The aggregate critical care time was [35] minutes. This time is in addition to time spent performing reported procedures but includes the following: [x] Data Review and interpretation [x] Patient assessment and monitoring of vital signs [x] Documentation [x] Medication orders and management History Interval history: This is a 55-year-old male with hypertension, asthma, obesity in the emergency by presents the emergency department on 10/10 after receiving a Covid vaccine being found unresponsive in his car in the emergency room by with no pulse and ACLS protocol was initiated from his car to emergency room #21 where it was continued. Patient was intubated after ROSC was achieved and a central line was placed and the patient was initiated on pressors. In the emergency room brooke ent seems to have seizure-like activity and then collapsed and was unresponsive with no palpable pulse and ACLS was again initiated patient with achievement of ROSC. Patient again coded with ACLS protocol in the CT room. Upon arrival to the ICU patient again coded and ROSC was achieved and he was placed on epinephrine, Lasix, heparin and sodium bicarbonate drip and sedated with propofol. An NG tube was placed, A-line was placed. Patient was admitted to the hospitalist service with consult to CCM, nephrology, infectious disease and cardiology. 10/11: Patient COVID-19 PCR is pending and he remains on mechanical ventilation, examination on assist control 400/30/12/0.95. Patient is scheduled for an echocardiogram and we will obtain bilateral lower extremity Doppler ultrasound given elevated D-dimer. Patient was supposed to have a CTA chest when he coded yesterday. We will begin trickle feeding. This morning patient was on a heparin drip and was noted to have bloody drainage from his NG tube. Heparin drip was discontinued. 10/12: Patient remains on propofol and Lasix drip at the time my examination and he is on assist control 400/25/12/0.60. Patient is hypokalemic this morning which was repleted. Nephrlogy discontinued Lasix drip and Diamox. Patient is hypertensive and has been started on hydralazine and beta-shital IV. He has been titrated off his vasopressors since yesterday. Vancomycin discontinued. Patient is currently on cefepime and azithromycin. 10/13: Sedation vacation attempted today and patient was not responsive to verbal or painful stimuli, does not track or focus or follow commands. This morning the patient has some respiratory alkalosis on ABG, hypernatremia and metabolic alkalosis on BMP. His kidney functions has improved slightly. Patient still has leukocytosis and infectious disease was like to continue antibiotic therapy. GI evaluated the patient yesterday and started the patient on PPI does not plan to scope at this time. At the time my examination patient assist-control 400/20/12/0.40 and sedated on propofol at 20. 4/2: GI has recommended a CT abdomen since there is increased output from OG tube and an MRI brain without contrast has been ordered per neurology recommendations. EEG is pending and the patient has been started on Keppra per neurology.. Nutrition has been consulted for initiation of parenteral nutrition. Patient remains sedated with propofol and his hypernatremia, leukocytosis, acute kidney injury and metabolic alkalosis is improving. Patient has hypokalemia today which was repleted. At the time of my examination patient was on assist control 400/14/10/0.[address] [facility] has dropped his rate to 12 and PEEP to 8. We have labs ordered for a.m. He was given a clonidine patch given persistent hypertension and he remains on D5 water per nephrology. 10/15: This morning patient was started to have a low-grade fever and he will continue antibiotic therapy per infectious disease. He will remove Tuttle catheter today and place a condom cath. Patient's renal function is worsening with a BUN/creatinine of 57/2.4 today and he has hyperphosphatemia at 5.2. This morning the time my examination patient is sedated on fentanyl and has TPN infusing. He is on assist control 400/12/8/0.35. Per GI we will start trial of tube feedings initiation has been reconsulted for orders. 10/18: Patient was febrile overnight and infectious disease has recultured (blood/sputum/right nostril culture) and sent in urinalysis. Cefepime was extended due to high fever and was started on vancomycin. Tube feeding is at goal and we will discontinue his parenteral nutrition. Patient is unable to obtain his MRI due to increased hypoxia and nasal secretions. He will be started on CPAP trials today. This time I examination patient was sedated on fentanyl and had PPN running at 42. His renal function tests have worsened and now has hyperchloremia. Hypernatremia has resolved. 10/19: Patient's T-max was 100.2 and he was pancultured yesterday, remains on antibiotic therapy and still has copious drainage from his nostrils. Patient still has leukocytosis however his/creatinine improved slightly to 3.1 from 3.3. Patient's urinalysis from yesterday shows pyuria. Patient's tracheal aspirate from yesterday grew Staph aureus. Patient is on cefepime and vancomycin. 10/20: This morning at the time my examination patient was CPAP trial of 6 and his T-max was 100.9. Patient sedated on fentanyl at 2 just received IV push fentanyl for tachycardia. Today his creatinine is 2.8 from 3.1 yesterday. Infectious disease has stopped cefepime and vancomycin and started linezolid and MRSA PCR is pending. Today removed his NG tube and replaced it with OG tube. We will keep the patient normal saline at 75 mL's per hour for 3 L. Patient developed A. fib/a flutter overnight and cardiology has increased his Lopressor and IV amiodarone. We requested neurology evaluation today. 10/21: Cardiology we will increase Lopressor to 3 times daily and discontinue his amiodarone drip. Infectious disease would like a sinus CT when feasible however patient did have a moment of desatting earlier this week when we attempted MRI brain. And again yesterday when we attempted a "trial run" with positioning at bedside Patient is on linezolid for 10 days per ID. Sepsis Right-sided pneumonia MRSA in tracheal aspirate NSTEMI type II Acute heart failure Afib/Alutter Copious nasal drainage Leukocytosis Acute hypoxic respiratory failure Acute kidney injury Transaminitis HTN Obesity Hospitalist Physical - Constitutional Vitals: Temp Pulse Resp BP Pulse Ox 98.6 F 96 H 18 166/110 97 10/21/20 08:00 10/21/20 11:53 10/21/20 11:30 10/21/20 11:53 10/21/20 11:53 General appearance: Present: no acute distress, well-nourished, other (Resting comfortably on mechanical ventilation, opens eye spontanously) - EENT Eyes: Present: PERRL ENT: poor dentition - Neck Neck: Present: supple - Respiratory Respiratory effort: normal Respiratory: bilateral: diminished - Cardiovascular Rhythm: regular Heart Sounds: Present: S1 & S2. Absent: systolic murmur, diastolic murmur - Extremities Extremities: no ischemia, pulses intact, pulses symmetrical, normal temperature, normal color Extremity abnormal: edema Peripheral Pulses: within normal limits - Abdominal General gastrointestinal: soft, non-tender, non-distended, normal bowel sounds - Integumentary Integumentary: Present: warm, dry - Psychiatric Psychiatric: other (sedated on fentanyl) - Neurologic Neurologic: other (sedated on fentanyl, does not follow commands, does not track/focus) HEART Score - HEART Score EKG: Non-specific Age: 45-65 Troponin: Troponin T 0.125 ng/mL (0.00-0.029) H* D 10/12/20 04:00 Troponin: 1-3x normal limit - Critical Actions Critical Actions: 4-6 pts:12-16.6% risk of adverse cardiac event. Should be admitted Results - Labs CBC & Chem 7: 10/21/20 06:30 10/21/20 06:30 Labs: Laboratory Last Values WBC 13.3 K/mm3 (4.5-11.0) H 10/21/20 06:30 RBC 3.68 M/mm3 (3.65-5.03) 10/21/20 06:30 Hgb 10.7 gm/dl (11.8-15.2) L 10/21/20 06:30 Hct 32.7 % (35.5-45.6) L 10/21/20 06:30 MCV 89 fl (84-94) 10/21/20 06:30 MCH 29 pg (28-32) 10/21/20 06:30 MCHC 33 % (32-34) 10/21/20 06:30 RDW 14.6 % (13.2-15.2) 10/21/20 06:30 Plt Count 255 K/mm3 (140-440) 10/21/20 06:30 Lymph % (Auto) 4.2 % (13.4-35.0) L 10/19/20 04:55 [place] % (Auto) 11.9 % (0.0-7.3) H 10/19/20 04:55 Eos % (Auto) 1.6 % (0.0-4.3) 10/19/20 04:55 Baso % (Auto) 0.3 % (0.0-1.8) 10/19/20 04:55 Lymph # (Auto) 0.6 K/mm3 (1.2-5.4) L 10/19/20 04:55 [place] # (Auto) 1.8 K/mm3 (0.0-0.8) H 10/19/20 04:55 Eos # (Auto) 0.2 K/mm3 (0.0-0.4) 10/19/20 04:55 Baso # (Auto) 0.1 K/mm3 (0.0-0.1) 10/19/20 04:55 Add Manual Diff Complete 10/10/20 18:18 Total Counted 100 10/10/20 18:18 Seg Neutrophils % 82.0 % (40.0-70.0) H 10/19/20 04:55 Seg Neuts % (Manual) 60.0 % (40.0-70.0) 10/10/20 18:18 Band Neutrophils % 27.0 % 10/10/20 18:18 Lymphocytes % (Manual) 4.0 % (13.4-35.0) L 10/10/20 18:18 Monocytes % (Manual) 9.0 % (0.0-7.3) H 10/10/20 18:18 Eosinophils % (Manual) 4.0 % (0.0-4.3) 10/10/20 10:48 Metamyelocytes % 1.0 % 10/10/20 10:48 Nucleated RBC % Not Reportable 10/10/20 18:18 Seg Neutrophils # 12.4 K/mm3 (1.8-7.7) H 10/19/20 04:55 Seg Neutrophils # Man 13.8 K/mm3 (1.8-7.7) H 10/10/20 18:18 Band Neutrophils # 6.2 K/mm3 10/10/20 18:18 Lymphocytes # (Manual) 0.9 K/mm3 (1.2-5.4) L 10/10/20 18:18 Abs React Lymphs (Man) 0.0 K/mm3 10/10/20 18:18 Monocytes # (Manual) 2.1 K/mm3 (0.0-0.8) H 10/10/20 18:18 Eosinophils # (Manual) 0.0 K/mm3 (0.0-0.4) 10/10/20 18:18 Basophils # (Manual) 0.0 K/mm3 (0.0-0.1) 10/10/20 18:18 Metamyelocytes # 0.0 K/mm3 10/10/20 18:18 Myelocytes # 0.0 K/mm3 10/10/20 18:18 Promyelocytes # 0.0 K/mm3 10/10/20 18:18 Blast Cells # 0.0 K/mm3 10/10/20 18:18 WBC Morphology Not Reportable 10/10/20 18:18 Hypersegmented Neuts Not Reportable 10/10/20 18:18 Hyposegmented Neuts Not Reportable 10/10/20 18:18 Hypogranular Neuts Not Reportable 10/10/20 18:18 Smudge Cells Not Reportable 10/10/20 18:18 Toxic Granulation Not Reportable 10/10/20 18:18 Toxic Vacuolation Not Reportable 10/10/20 18:18 Dohle Bodies Not Reportable 10/10/20 18:18 Pelger-Huet Anomaly Not Reportable 10/10/20 18:18 Dionicio Rods Not Reportable 10/10/20 18:18 Platelet Estimate Consistent w auto 10/10/20 18:18 Clumped Platelets Not Reportable 10/10/20 18:18 Plt Clumps, EDTA Not Reportable 10/10/20 18:18 Large Platelets Rare 10/10/20 18:18 Giant Platelets Rare 10/10/20 18:18 Platelet Satelliting Not Reportable 10/10/20 18:18 Plt Morphology Comment Not Reportable 10/10/20 18:18 RBC Morphology Not Reportable 10/10/20 18:18 Dimorphic RBCs Not Reportable 10/10/20 18:18 Polychromasia Not Reportable 10/10/20 18:18 Hypochromasia Not Reportable 10/10/20 18:18 Poikilocytosis Not Reportable 10/10/20 18:18 Anisocytosis Not Reportable 10/10/20 18:18 Microcytosis Not Reportable 10/10/20 18:18 Macrocytosis Not Reportable 10/10/20 18:18 Spherocytes Not Reportable 10/10/20 18:18 Pappenheimer Bodies Not Reportable 10/10/20 18:18 Sickle Cells Not Reportable 10/10/20 18:18 Target Cells Not Reportable 10/10/20 18:18 Tear Drop Cells Not Reportable 10/10/20 18:18 Ovalocytes Not Reportable 10/10/20 18:18 Helmet Cells Not Reportable 10/10/20 18:18 [place] Bodies Not Reportable 10/10/20 18:18 [place] Rings Not Reportable 10/10/20 18:18 Adelfo Cells Not Reportable 10/10/20 18:18 Bite Cells Not Reportable 10/10/20 18:18 Crenated Cell Not Reportable 10/10/20 18:18 Elliptocytes Not Reportable 10/10/20 18:18 Acanthocytes (Spur) Not Reportable 10/10/20 18:18 Rouleaux Not Reportable 10/10/20 18:18 Hemoglobin C Crystals Not Reportable 10/10/20 18:18 Schistocytes Not Reportable 10/10/20 18:18 Malaria parasites Not Reportable 10/10/20 18:18 Mauricio Bodies Not Reportable 10/10/20 18:18 Hem Pathologist Commnt No 10/10/20 18:18 PT 13.8 Sec. (12.2-14.9) 10/10/20 18:18 INR 1.07 (0.87-1.13) 10/10/20 18:18 APTT 26.9 Sec. (24.2-36.6) 10/10/20 18:18 D-Dimer 679.5 ng/mlDDU (0-234) H 10/10/20 10:48 Heparin Anti-Xa Level 0.22 U.I./ml (0.3-0.7) L 10/11/20 08:35 ABG pH 7.262 (7.320-7.450) L 10/21/20 04:20 POC ABG pCO2 72.4 mmHg (32.0-48.0) H 10/21/20 04:20 ABG pCO2 55.5 mm Hg 10/16/20 05:10 POC ABG pO2 81.6 mmHg (83-108) L 10/21/20 04:20 ABG pO2 104.5 mm Hg (80.0-90.0) H 10/16/20 05:10 POC ABG HCO3 31.9 10/21/20 04:20 ABG HCO3 35.1 mmol/L (20.0-26.0) H 10/16/20 05:10 ABG O2 Saturation 95.2 (0-100) 10/21/20 04:20 ABG O2 Content 10.8 (0.0-44) 10/16/20 05:10 POC ABG Base Excess 3.1 10/21/20 04:20 ABG Base Excess 9.5 mmol/L (-2.0-3.0) H 10/16/20 05:10 ABG Hemoglobin 11.6 (12.0-17.5) L 10/21/20 04:20 ABG Oxyhemoglobin 94.1 (94-98) 10/21/20 04:20 ABG Carboxyhemoglobin 1.9 % (0.0-5.0) 10/16/20 05:10 ABG Methemoglobin 0.3 (0.0-1.5) 10/21/20 04:20 ABG Sodium 141.8 mmol/L (136.0-145.0) 10/21/20 04:20 ABG Potassium 3.8 mmol/L (3.40-4.50) 10/21/20 04:20 ABG Chloride 104.0 mmol/L (98-107) 10/21/20 04:20 ABG Glucose 140 mg/dL (65-95) H 10/21/20 04:20 VBG pH 6.870 (7.320-7.420) L* 10/10/20 10:48 Oxyhemoglobin 95.3 % (95.0-99.0) 10/16/20 05:10 Carboxyhemoglobin 0.9 (0.5-1.5) 10/21/20 04:20 FiO2 35 % 10/16/20 05:10 FiO2 % 30.0 10/21/20 04:20 Sodium 142 mmol/L (137-145) 10/21/20 06:30 Potassium 3.9 mmol/L (3.6-5.0) 10/21/20 06:30 Chloride 102.5 mmol/L (98-107) 10/21/20 06:30 Carbon Dioxide 33 mmol/L (22-30) H 10/21/20 06:30 Anion Gap 10 mmol/L 10/21/20 06:30 BUN 104 mg/dL (9-20) H 10/21/20 06:30 Creatinine 2.9 mg/dL (0.8-1.3) H 10/21/20 06:30 Estimated GFR 28 ml/min 10/21/20 06:30 BUN/Creatinine Ratio 36 % 10/21/20 06:30 Glucose 153 mg/dL (75-100) H 10/21/20 06:30 POC Glucose 178 mg/dL (70-105) H 10/21/20 11:24 Hemoglobin A1c 6.0 % (4-6) 10/11/20 02:00 Lactic Acid 1.10 mmol/L (0.7-2.0) 10/13/20 04:52 Calcium 9.1 mg/dL (8.4-10.2) 10/21/20 06:30 Phosphorus 5.20 mg/dL (2.5-4.5) H D 10/17/20 03:32 Magnesium 2.30 mg/dL (1.7-2.3) 10/17/20 03:32 Ferritin 81.4 ng/mL (30.0-300.0) 10/10/20 10:48 Total Bilirubin 1.70 mg/dL (0.1-1.2) H 10/18/20 03:27 AST 37 units/L (5-40) 10/18/20 03:27 ALT 32 units/L (7-56) 10/18/20 03:27 Alkaline Phosphatase 97 units/L (35-129) 10/18/20 03:27 Ammonia 214.0 umol/L (25-60) H 10/10/20 10:46 Lactate Dehydrogenase 386 units/L (91-180) H 10/10/20 10:48 Total Creatine Kinase 1192 units/L (55-170) H 10/10/20 18:18 CK-MB (CK-2) 21.7 ng/mL (0.0-4.0) H 10/10/20 18:18 CK-MB (CK-2) Rel Index 1.8 (0-4) 10/10/20 18:18 Troponin T 0.125 ng/mL (0.00-0.029) H* D 10/12/20 04:00 C-Reactive Protein 0.90 mg/dL (0.00-1.30) 10/10/20 10:48 NT-Pro-B Natriuret Pep 1187 pg/mL (0-900) H 10/10/20 10:46 Total Protein 6.3 g/dL (6.3-8.2) 10/18/20 03:27 Albumin 3.1 g/dL (3.9-5) L 10/18/20 03:27 Albumin/Globulin Ratio 1.0 % 10/18/20 03:27 Triglycerides 278 mg/dL (2-149) H 10/13/20 04:52 Cholesterol 138 mg/dL (50-199) 10/10/20 18:18 LDL Cholesterol Direct 76 mg/dL (50-130) 10/10/20 18:18 HDL Cholesterol 49 mg/dL (40-59) 10/10/20 18:18 Cholesterol/HDL Ratio 2.81 % 10/10/20 18:18 Procalcitonin 4.98 ng/mL (<0.15) 10/15/20 04:12 TSH 6.260 mlU/mL (0.270-4.200) H 10/10/20 10:46 Arterial Blood Glucose 140 mg/dL (65-95) H 10/21/20 04:20 Arterial Blood Ionized Calcium 5.1 mg/dL (4.6-5.3) 10/21/20 04:20 Urine Color Angelica (Yellow) 10/18/20 Unknown Urine Turbidity Cloudy (Clear) 10/18/20 Unknown Urine pH 5.0 (5.0-7.0) 10/18/20 Unknown Ur Specific [place] 1.017 (1.003-1.030) 10/18/20 Unknown Urine Protein 100 mg/dl mg/dL (Negative) 10/18/20 Unknown Urine Glucose (UA) Neg mg/dL (Negative) 10/18/20 Unknown Urine Ketones Neg mg/dL (Negative) 10/18/20 Unknown Urine Blood Lg (Negative) 10/18/20 Unknown Urine Nitrite Neg (Negative) 10/18/20 Unknown Urine Bilirubin Neg (Negative) 10/18/20 Unknown Urine Urobilinogen 4.0 mg/dL (<2.0) 10/18/20 Unknown Ur Leukocyte Esterase Neg (Negative) 10/18/20 Unknown Urine WBC (Auto) 115.0 /HPF (0.0-6.0) H 10/18/20 Unknown Urine RBC (Auto) 98.0 /HPF (0.0-6.0) 10/18/20 Unknown U Epithel Cells (Auto) 2.0 /HPF (0-13.0) 10/18/20 Unknown Urine WBC Clumps 3+ /HPF 10/18/20 Unknown Urine Mucus Few /HPF 10/11/20 13:30 Urine Eosinophils None seen (None Seen) 10/11/20 13:30 Urine Creatinine 93.7 mg/dL (0.1-20.0) H 10/19/20 13:14 Urine Sodium 25 mmol/L 10/19/20 13:14 Urine Urea Nitrogen 845 10/19/20 13:14 Random Vancomycin 5.8 ug/mL (0-40.0) 10/21/20 06:30 Urine Opiates Screen Negative 10/10/20 10:50 Urine Methadone Screen Negative 10/10/20 10:50 Ur Barbiturates Screen Negative 10/10/20 10:50 Ur Phencyclidine Scrn Negative 10/10/20 10:50 Ur Amphetamines Screen Negative 10/10/20 10:50 U Benzodiazepines Scrn Negative 10/10/20 10:50 Urine Cocaine Screen Negative 10/10/20 10:50 U Marijuana (THC) Screen Positive 10/10/20 10:50 Drugs of Abuse Note Disclamer 10/10/20 10:50 Plasma/Serum Alcohol < 0.01 % (0-0.07) 10/10/20 10:48 Coronavirus (PCR) Negative (Negative) 10/11/20 Unknown Blood Type AB POSITIVE 10/10/20 10:48 Antibody Screen Negative 10/10/20 10:48 Microbiology: Microbiology 10/18/20 11:00 Peripheral/Venous Blood Culture - Preliminary NO GROWTH AFTER 48 HOURS 10/18/20 11:00 Peripheral/Venous Blood Culture - Preliminary NO GROWTH AFTER 48 HOURS 10/18/20 09:56 Tracheal Aspirate Sputum Culture - Final Methicillin Resist S. Aureus Tuttle/IV: Voiding Method Diaper Active Medications - Current Medications Current Medications: Generic Name Dose Route Start Last Admin Trade Name Freq PRN Reason Stop Dose Admin Acetaminophen 650 mg 10/10/20 21:51 10/20/20 09:11 Acetaminophen 325 Mg Tab PO 650 mg Q4H PRN Administration Pain MILD(1-3)/Fever >100.5/SALVADOR Acetaminophen 650 mg 10/11/20 11:24 10/17/20 17:16 Acetaminophen 650 Mg Rect Supp [place] 650 mg Q6H PRN Administration Fever >101 Albuterol 2.5 mg 10/11/20 13:12 Albuterol 2.5 Mg/3 Ml Nebu IH Q6HRT PRN Shortness Of Breath Lipase/Protease/Amylase 1 each 10/10/20 22:18 Lipase 10,500/Protease 25,000/Amylase 43,750 (Units) Dr Santana FEEDTUBE PRN PRN For Clogged Feeding Tube Clonidine HCl 0.3 mg 10/14/20 15:00 10/14/20 16:00 Clonidine Tts 0.3 Mg/24 Hr Patch TD 0.3 mg Fr PEPITO Administration Docusate Sodium 100 mg 10/16/20 22:00 10/21/20 09:53 Docusate Sodium 100 Mg/10 Ml Oral Liqd PO 100 mg BID PEPITO Administration Fentanyl 50 mcg 10/16/20 14:10 10/20/20 07:43 Fentanyl 100 Mcg/2 Ml Inj IV 50 mcg Q10MIN PRN Administration ANALGESIA Fluticasone Propionate 50 mcg 10/18/20 14:00 10/21/20 10:08 Fluticasone Propionate Nasal [place] 16 Gm NS 50 mcg BID PEPITO Administration Glycopyrrolate 2 mg 10/19/20 14:00 10/21/20 02:18 Glycopyrrolate 1 Mg Tab PO 2 mg Q6H PEPITO Administration Heparin Sodium (Porcine) 5,000 unit 10/11/20 22:00 10/21/20 09:54 Heparin 5,000 Unit/1 Ml Vial SUB-Q 5,000 unit Q12HR PEPITO Administration Hydralazine HCl 5 mg 10/15/20 20:25 10/19/20 15:46 Hydralazine 20 Mg/1 Ml Inj IV 5 mg Q6H PRN Administration Hypertension Hydralazine HCl 50 mg 10/19/20 14:00 10/21/20 06:13 Hydralazine 25 Mg Tab PO 50 mg Q8HR PEPITO Administration Hydromorphone HCl 0.5 mg 10/10/20 21:51 10/15/20 14:45 Hydromorphone 1 Mg/1 Ml Inj IV 0.5 mg Q3H PRN Administration Pain , Severe (7-10) Hydrophilic Ointment 1 applic 10/10/20 10:34 Lip Therapy Vaseline TP Q2HR PRN Dry Lips Propofol 1,000 mg in 100 mls @ 4.23 mls/hr 10/10/20 12:00 10/17/20 00:36 Diprivan 10 Mg/Ml IV 0 mcg/kg/min TITR PEPITO 0 mls/hr Titration Protocol 5 MCG/KG/MIN Nitroglycerin/Dextrose 50 mg in 250 mls @ 3 mls/hr 10/10/20 13:00 10/10/20 13:17 Tridil Drip 50mg/250ml IV 0 mcg/min TITR PEPITO 0 mls/hr Titration Protocol 10 MCG/MIN Norepinephrine 8 mg/ Sodium 250 mls @ 3.75 mls/hr 10/10/20 14:00 10/10/20 22:15 Chloride IV 0 mcg/min TITRATE PEPITO 0 mls/hr Titration Protocol 2 MCG/MIN Levetiracetam 500 mg/ Dextrose 105 mls @ 400 mls/hr 10/13/20 18:00 10/21/20 06:13 IV 400 mls/hr Q12H PEPITO Administration Fentanyl Citrate 2,000 mcg in 100 mls @ 6.175 mls/hr 10/16/20 15:00 10/21/20 02:17 Fentanyl Drip Premix IV 2 mcg/kg/hr TITR PEPITO 12.35 mls/hr Administration Protocol 1 MCG/KG/HR Linezolid 600 mg in 300 mls @ 300 mls/hr 10/20/20 12:00 10/21/20 09:55 Zyvox 600mg/300ml IV 10/29/20 22:59 300 mls/hr Q12HR PEPITO Administration Protocol Amiodarone HCl 900 mg/ 500 mls @ 33.333 mls/hr 10/20/20 14:00 10/20/20 20:25 Dextrose IV 10/21/20 22:00 0.5 mg/min DIRECT PEPITO 16.667 mls/hr Infusion Protocol 1 MG/MIN Sodium Chloride 1,000 mls @ 75 mls/hr 10/20/20 14:00 10/21/20 02:18 Nacl 0.9% 1000 Ml IV 10/23/20 03:19 75 mls/hr DIRECT PEPITO Administration Metoclopramide HCl 10 mg 10/10/20 21:51 Metoclopramide 10 Mg/2 Ml Inj IV Q6H PRN Nausea And Vomiting Metoprolol Tartrate 100 mg 10/21/20 14:00 Metoprolol Tartrate 50 Mg Tab PO TID PEPITO Multi-Ingred Cream/Lotion/Oil/Oint 1 applic 10/10/20 10:34 Mineral Oil/Petrolatum, White Ophth Oint 3.5 Gm OU Q4HR PRN Dry Eye(s) Ondansetron HCl 4 mg 10/10/20 21:51 Ondansetron 4 Mg/2 Ml Inj IV Q3H PRN Nausea And Vomiting Pantoprazole Sodium 40 mg 10/12/20 22:00 10/21/20 09:53 Pantoprazole 40 Mg Inj IV 40 mg BID PEPITO Administration Polyethylene Glycol 17 gm 10/17/20 10:00 10/21/20 09:55 Polyethylene Glycol 3350 17 Gm Powder PO 17 gm QDAY PEPITO Administration Scopolamine 1 each 10/17/20 10:00 10/20/20 09:14 Scopolamine Transdermal Patch 72 Hr TD 1 each Q3D PEPITO Administration Simple Syrup 15 ml 10/10/20 22:18 Simple Syrup 15 Ml FEEDTUBE PRN PRN Hypoglycemia Simple Syrup 30 ml 10/10/20 22:18 Simple Syrup 15 Ml FEEDTUBE PRN PRN Hypoglycemia Sodium Bicarbonate 325 mg 10/10/20 22:18 Sodium Bicarbonate 325 Mg Tab FEEDTUBE PRN PRN For Clogged Feeding Tube Sodium Chloride 10 ml 10/10/20 22:00 10/21/20 09:56 Sodium Chloride 0.9% 10 Ml Flush Syringe IV 10 ml BID PEPITO Administration Sodium Chloride 10 ml 10/10/20 21:51 10/21/20 09:56 Sodium Chloride 0.9% 10 Ml Flush Syringe IV 10 ml PRN PRN Administration LINE FLUSH Nutrition/Malnutrition Assess - Dietary Evaluation Nutrition/Malnutrition Findings: Nutrition Notes Start: 10/11/20 08:38 Freq: Status: Active Protocol: Document 10/18/20 12:54 CW (Rec: 10/18/20 13:04 CW [id number]) Nutrition Notes Current Diagnosis Acute Kidney Injury,Sepsis, Hypertension,Heart Failure, Respiratory Failure Other Pertinent Diagnosis GIB, pneu, Covid 19, [place], pulmonary edema Current Diet CPN at 84 ml/hr+ TF Nepro at 45 ml/hr Labs/Tests BUN 90 Cr 3.3 BG 146 Pertinent Medications Miralax Colace Height 6 ft Weight 128.1 kg [place] Body Weight (kg) 80.90 BMI 38.2 Weight change and time frame Weight gain noted, will monitor Weight Status Morbidly Obese Subjective/Other Information Day 4 CPN. Pt is tolerating both CPN and TF well. CPN to be d/c'd today after completion of bag. TF of Nepro running at 35 ml/hr Percent of energy/protein needs met: 107%/(927 kcal from TF and 995 kcal from CPN) 79% Burn Absent Trauma Absent Current % PO Negligible Minimum of two criteria No physical signs of malnutrition #2 Nutrition Diagnosis Inadequate energy intake As Evidenced by Signs and Symptoms TF running at 45 ml/hr with CPN running at 84 ml/hr Diagnosis Progress(for reassessment Improved documentation) #1 Nutrition Diagnosis Inadequate oral intake Diagnosis Progress(for reassessment Continues documentation) Is patient on ventilator? Yes Is Patient Ambulatory and/or Out of Bed No REE-([place] [facility]-confined to bed) 2600.352 Kcal/Kg value to use for calculation 14 Approximate Energy Requirements Using 1793 kcal/Kg Calculation Used for Recommendations Kcal/kg Additional Notes protein needs: >162g (>2 kgIBW ) fluid needs: 1 ml/kcal or per MD Nutrition Intervention Change Diet Order: D/C CPN Continue TF Nutrition Support: Nepro at 45 ml/hr with a free water flush of 200 ml q4h Kcal 1,944 Protein (gm) 87 Fluid (mL) 785 Goal #1 TF at goal and well tolerated Goal #2 Meet at least 75% of kcal needs via TF Anticipated Discharge Needs: unable to determine at this time Follow-Up By: 10/21/20 Additional Comments F/U TF at goal and tolerance
[2020-10-21] MEDS: cloNIDine TTS 0.3 MG/24 HR PATCH TD SCH (14:05)
[2020-10-21] MEDS: hydrALAZINE 20 MG/1 ML INJ IV PRN (16:39)
[2020-10-22] MEDS: fentaNYL DRIP Premix 2,000 MCG/100 ML BAG IV SCH ×3 (00:32→21:45)
[2020-10-22] MEDS: GLYCOPYRROLATE 1 MG TAB PO SCH ×4 (03:14→20:55)
[2020-10-22] MEDS: levETIRAcetam 500 MG in DEXTROSE 5% IN WATER 100 ML IV SCH ×2 (06:03→17:53)
[2020-10-22] MEDS: hydrALAZINE 25 MG TAB PO SCH ×3 (06:04→21:40)
[2020-10-22] MEDS: METOPROLOL TARTRATE 50 MG TAB PO SCH ×3 (08:13→20:55)
--- NOTE | 2020-10-22 08:52 | Progress Note ---
Assessment and Plan Assessment and plan: This is a 55-year-old male with hypertension, asthma, obesity in the emergency by presents the emergency department on 10/10 after receiving a Covid vaccine being found unresponsive in his car in the emergency room by with no pulse and ACLS protocol was initiated from his car to emergency room #21 where it was continued. Patient was intubated after ROSC was achieved and a central line was placed and the patient was initiated on pressors. In the emergency room patient seems to have seizure-like activity and then collapsed and was unresponsive with no palpable pulse and ACLS was again initiated patient with achievement of ROSC. Patient again coded with ACLS protocol in the CT room. Upon arrival to the ICU patient again coded and ROSC was achieved and he was placed on epinephrine, Lasix, heparin and sodium bicarbonate drip and sedated with propofol. An NG tube was placed, A-line was placed. Patient was admitted to the hospitalist service with consult to CCM, nephrology, infectious disease and cardiology. 10/11: Patient COVID-19 PCR is pending and he remains on mechanical ventilation, examination on assist control 400/30/12/0.95. Patient is scheduled for an echocardiogram and we will obtain bilateral lower extremity Doppler ultrasound given elevated D-dimer. Patient was supposed to have a CTA chest when he coded yesterday. We will begin trickle feeding. This morning patient was on a heparin drip and was noted to have bloody drainage from his NG tube. Heparin drip was discontinued. 10/12: Patient remains on propofol and Lasix drip at the time my examination and he is on assist control 400/25/12/0.60. Patient is hypokalemic this morning which was repleted. Nephrlogy discontinued Lasix drip and Diamox. Patient is hypertensive and has been started on hydralazine and beta-shital IV. He has been titrated off his vasopressors since yesterday. Vancomycin discontinued. Patient is currently on cefepime and azithromycin. 10/13: Sedation vacation attempted today and patient was not responsive to verbal or painful stimuli, does not track or focus or follow commands. This morning the patient has some respiratory alkalosis on ABG, hypernatremia and metabolic alkalosis on BMP. His kidney functions has improved slightly. Patient still has leukocytosis and infectious disease was like to continue antibiotic therapy. GI evaluated the patient yesterday and started the patient on PPI does not plan to scope at this time. At the time my examination patient assist-control 400/20/12/0.40 and sedated on propofol at 20. /: GI has recommended a CT abdomen since there is increased output from OG tube and an MRI brain without contrast has been ordered per neurology rec ommendations. EEG is pending and the patient has been started on Keppra per neurology.. Nutrition has been consulted for initiation of parenteral nutrition. Patient remains sedated with propofol and his hypernatremia, leukocytosis, acute kidney injury and metabolic alkalosis is improving. Patient has hypokalemia today which was repleted. At the time of my examination patient was on assist control 400/14/10/0.40 and CCM has dropped his rate to 12 and PEEP to 8. We have labs ordered for a.m. He was given a clonidine patch given persistent hypertension and he remains on D5 water per nephrology. 10/15: This morning patient was started to have a low-grade fever and he will continue antibiotic therapy per infectious disease. He will remove Tuttle catheter today and place a condom cath. Patient's renal function is worsening with a BUN/creatinine of 57/2.4 today and he has hyperphosphatemia at 5.2. This morning the time my examination patient is sedated on fentanyl and has TPN infusing. He is on assist control 400/12/8/0.35. Per GI we will start trial of tube feedings initiation has been reconsulted for orders. 10/18: Patient was febrile overnight and infectious disease has recultured (blood/sputum/right nostril culture) and sent in urinalysis. Cefepime was extended due to high fever and was started on vancomycin. Tube feeding is at goal and we will discontinue his parenteral nutrition. Patient is unable to obtain his MRI due to increased hypoxia and nasal secretions. He will be started on CPAP trials today. This time I examination patient was sedated on fentanyl and had PPN running at 42. His renal function tests have worsened and now has hyperchloremia. Hypernatremia has resolved. 10/19: Patient's T-max was 100.2 and he was pancultured yesterday, remains on an tibiotic therapy and still has copious drainage from his nostrils. Patient still has leukocytosis however his/creatinine improved slightly to 3.1 from 3.3. Patient's urinalysis from yesterday shows pyuria. Patient's tracheal aspirate from yesterday grew Staph aureus. Patient is on cefepime and vancomycin. 10/20: This morning at the time my examination patient was CPAP trial of 04/19 and his T-max was 100.9. Patient sedated on fentanyl at 2 just received IV push fentanyl for tachycardia. Today his creatinine is 2.8 from 3.1 yesterday. Infectious disease has stopped cefepime and vancomycin and started linezolid and MRSA PCR is pending. Today removed his NG tube and replaced it with OG tube. We will keep the patient normal saline at 75 mL's per hour for 3 L. Patient developed A. fib/a flutter overnight and cardiology has increased his Lopressor and IV amiodarone. We requested neurology evaluation today. 10/21: Cardiology we will increase Lopressor to 3 times daily and discontinue his amiodarone drip. Infectious disease would like a sinus CT when feasible however patient did have a moment of desatting earlier this week when we attempted MRI brain. And again yesterday when we attempted a "trial run" with positioning at bedside Patient is on linezolid for 10 days per ID. Sepsis Right-sided pneumonia MRSA in tracheal aspirate NSTEMI type II Acute heart failure Afib/Alutter Copious nasal drainage Leukocytosis Acute hypoxic respiratory failure Acute kidney injury Transaminitis HTN Obesity 10/22/20; patient was seen and evaluated this morning, patient had low-grade fever overnight. Patient is on Lopressor per cardiology recommendation. Patient did not follow commands, no improvement in mental status. Evaluated by neurology yesterday and neurology once MRI or CAT scan but cannot be done because patient desats when he lies flat. Patient is on linezolid per ID recommendation. Continue NG tube feeding. Continue with Keppra. Patient is on assist control with PEEP of 6. Management plan was discussed with his yesterday. The high probability of a clinically significant, sudden or life threatening deterioration of the [cardiovascular, respiratory] system(s) required my full and direct attention, intervention and personal management. The aggregate critical care time was [31] minutes. This time is in addition to time spent performing reported procedures but includes the following: [x] Data Review and interpretation [x] Patient assessment and monitoring of vital signs [x] Documentation [x] Medication orders and management History Interval history: Patient was seen and evaluated this morning Patient is intubated Patient does not follow commands, open his eyes spontaneous Hospitalist Physical - Physical exam Narrative exam: Intubated and on vent The patient appeared well nourished and normally developed. Vital signs as documented. Head exam is unremarkable. No scleral icterus . Neck is without jugular venous distension, thyromegaly, or carotid bruits. Lungs are clear to auscultation. Cardiac exam reveals regular rate and Rhythm. Abdominal exam reveals normal bowel sounds, nontender, no organomegaly. Extremities are nonedematous and both femoral and pedal pulses are normal. 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 Should be admitted Results - Labs CBC & Chem 7: 10/21/20 06:30 10/22/20 06:15 Labs: Laboratory Last Values WBC 13.3 K/mm3 (4.5-11.0) H 10/21/20 06:30 RBC 3.68 M/mm3 (3.65-5.03) 10/21/20 06:30 Hgb 10.7 gm/dl (11.8-15.2) L 10/21/20 06:30 Hct 32.7 % (35.5-45.6) L 10/21/20 06:30 MCV 89 fl (84-94) 10/21/20 06:30 MCH 29 pg (28-32) 10/21/20 06:30 MCHC 33 % (32-34) 10/21/20 06:30 RDW 14.6 % (13.2-15.2) 10/21/20 06:30 Plt Count 255 K/mm3 (140-440) 10/21/20 06:30 Lymph % (Auto) 4.2 % (13.4-35.0) L 10/19/20 04:55 [place] % (Auto) 11.9 % (0.0-7.3) H 10/19/20 04:55 Eos % (Auto) 1.6 % (0.0-4.3) 10/19/20 04:55 Baso % (Auto) 0.3 % (0.0-1.8) 10/19/20 04:55 Lymph # (Auto) 0.6 K/mm3 (1.2-5.4) L 10/19/20 04:55 [place] # (Auto) 1.8 K/mm3 (0.0-0.8) H 10/19/20 04:55 Eos # (Auto) 0.2 K/mm3 (0.0-0.4) 10/19/20 04:55 Baso # (Auto) 0.1 K/mm3 (0.0-0.1) 10/19/20 04:55 Add Manual Diff Complete 10/10/20 18:18 Total Counted 100 10/10/20 18:18 Seg Neutrophils % 82.0 % (40.0-70.0) H 10/19/20 04:55 Seg Neuts % (Manual) 60.0 % (40.0-70.0) 10/10/20 18:18 Band Neutrophils % 27.0 % 10/10/20 18:18 Lymphocytes % (Manual) 4.0 % (13.4-35.0) L 10/10/20 18:18 Monocytes % (Manual) 9.0 % (0.0-7.3) H 10/10/20 18:18 Eosinophils % (Manual) 4.0 % (0.0-4.3) 10/10/20 10:48 Metamyelocytes % 1.0 % 10/10/20 10:48 Nucleated RBC % Not Reportable 10/10/20 18:18 Seg Neutrophils # 12.4 K/mm3 (1.8-7.7) H 10/19/20 04:55 Seg Neutrophils # Man 13.8 K/mm3 (1.8-7.7) H 10/10/20 18:18 Band Neutrophils # 6.2 K/mm3 10/10/20 18:18 Lymphocytes # (Manual) 0.9 K/mm3 (1.2-5.4) L 10/10/20 18:18 Abs React Lymphs (Man) 0.0 K/mm3 10/10/20 18:18 Monocytes # (Manual) 2.1 K/mm3 (0.0-0.8) H 10/10/20 18:18 Eosinophils # (Manual) 0.0 K/mm3 (0.0-0.4) 10/10/20 18:18 Basophils # (Manual) 0.0 K/mm3 (0.0-0.1) 10/10/20 18:18 Metamyelocytes # 0.0 K/mm3 10/10/20 18:18 Myelocytes # 0.0 K/mm3 10/10/20 18:18 Promyelocytes # 0.0 K/mm3 10/10/20 18:18 Blast Cells # 0.0 K/mm3 10/10/20 18:18 WBC Morphology Not Reportable 10/10/20 18:18 Hypersegmented Neuts Not Reportable 10/10/20 18:18 Hyposegmented Neuts Not Reportable 10/10/20 18:18 Hypogranular Neuts Not Reportable 10/10/20 18:18 Smudge Cells Not Reportable 10/10/20 18:18 Toxic Granulation Not Reportable 10/10/20 18:18 Toxic Vacuolation Not Reportable 10/10/20 18:18 Dohle Bodies Not Reportable 10/10/20 18:18 Pelger-Huet Anomaly Not Reportable 10/10/20 18:18 Dionicio Rods Not Reportable 10/10/20 18:18 Platelet Estimate Consistent w auto 10/10/20 18:18 Clumped Platelets Not Reportable 10/10/20 18:18 Plt Clumps, EDTA Not Reportable 10/10/20 18:18 Large Platelets Rare 10/10/20 18:18 Giant Platelets Rare 10/10/20 18:18 Platelet Satelliting Not Reportable 10/10/20 18:18 Plt Morphology Comment Not Reportable 10/10/20 18:18 RBC Morphology Not Reportable 10/10/20 18:18 Dimorphic RBCs Not Reportable 10/10/20 18:18 Polychromasia Not Reportable 10/10/20 18:18 Hypochromasia Not Reportable 10/10/20 18:18 Poikilocytosis Not Reportable 10/10/20 18:18 Anisocytosis Not Reportable 10/10/20 18:18 Microcytosis Not Reportable 10/10/20 18:18 Macrocytosis Not Reportable 10/10/20 18:18 Spherocytes Not Reportable 10/10/20 18:18 Pappenheimer Bodies Not Reportable 10/10/20 18:18 Sickle Cells Not Reportable 10/10/20 18:18 Target Cells Not Reportable 10/10/20 18:18 Tear Drop Cells Not Reportable 10/10/20 18:18 Ovalocytes Not Reportable 10/10/20 18:18 Helmet Cells Not Reportable 10/10/20 18:18 [place] Bodies Not Reportable 10/10/20 18:18 [place] Rings Not Reportable 10/10/20 18:18 [place] Cells Not Reportable 10/10/20 18:18 Bite Cells Not Reportable 10/10/20 18:18 Crenated Cell Not Reportable 10/10/20 18:18 Elliptocytes Not Reportable 10/10/20 18:18 Acanthocytes (Spur) Not Reportable 10/10/20 18:18 Rouleaux Not Reportable 10/10/20 18:18 Hemoglobin C Crystals Not Reportable 10/10/20 18:18 Schistocytes Not Reportable 10/10/20 18:18 Malaria parasites Not Reportable 10/10/20 18:18 Mauricio Bodies Not Reportable 10/10/20 18:18 Hem Pathologist Commnt No 10/10/20 18:18 PT 13.8 Sec. (12.2-14.9) 10/10/20 18:18 INR 1.07 (0.87-1.13) 10/10/20 18:18 APTT 26.9 Sec. (24.2-36.6) 10/10/20 18:18 D-Dimer 679.5 ng/mlDDU (0-234) H 10/10/20 10:48 Heparin Anti-Xa Level 0.22 U.I./ml (0.3-0.7) L 10/11/20 08:35 ABG pH 7.262 (7.320-7.450) L 10/21/20 04:20 POC ABG pCO2 72.4 mmHg (32.0-48.0) H 10/21/20 04:20 ABG pCO2 55.5 mm Hg 10/16/20 05:10 POC ABG pO2 81.6 mmHg (83-108) L 10/21/20 04:20 ABG pO2 104.5 mm Hg (80.0-90.0) H 10/16/20 05:10 POC ABG HCO3 31.9 10/21/20 04:20 ABG HCO3 35.1 mmol/L (20.0-26.0) H 10/16/20 05:10 ABG O2 Saturation 95.2 (0-100) 10/21/20 04:20 ABG O2 Content 10.8 (0.0-44) 10/16/20 05:10 POC ABG Base Excess 3.1 10/21/20 04:20 ABG Base Excess 9.5 mmol/L (-2.0-3.0) H 10/16/20 05:10 ABG Hemoglobin 11.6 (12.0-17.5) L 10/21/20 04:20 ABG Oxyhemoglobin 94.1 (94-98) 10/21/20 04:20 ABG Carboxyhemoglobin 1.9 % (0.0-5.0) 10/16/20 05:10 ABG Methemoglobin 0.3 (0.0-1.5) 10/21/20 04:20 ABG Sodium 141.8 mmol/L (136.0-145.0) 10/21/20 04:20 ABG Potassium 3.8 mmol/L (3.40-4.50) 10/21/20 04:20 ABG Chloride 104.0 mmol/L (98-107) 10/21/20 04:20 ABG Glucose 140 mg/dL (65-95) H 10/21/20 04:20 VBG pH 6.870 (7.320-7.420) L* 10/10/20 10:48 Oxyhemoglobin 95.3 % (95.0-99.0) 10/16/20 05:10 Carboxyhemoglobin 0.9 (0.5-1.5) 10/21/20 04:20 FiO2 35 % 10/16/20 05:10 FiO2 % 30.0 10/21/20 04:20 Sodium 144 mmol/L (137-145) 10/22/20 06:15 Potassium 4.0 mmol/L (3.6-5.0) 10/22/20 06:15 Chloride 104.5 mmol/L (98-107) 10/22/20 06:15 Carbon Dioxide 32 mmol/L (22-30) H 10/22/20 06:15 Anion Gap 12 mmol/L 10/22/20 06:15 BUN 103 mg/dL (9-20) H 10/22/20 06:15 Creatinine 2.7 mg/dL (0.8-1.3) H 10/22/20 06:15 Estimated GFR 30 ml/min 10/22/20 06:15 BUN/Creatinine Ratio 38 % 10/22/20 06:15 Glucose 151 mg/dL (75-100) H 10/22/20 06:15 POC Glucose 137 mg/dL (70-105) H 10/22/20 06:18 Hemoglobin A1c 6.0 % (4-6) 10/11/20 02:00 Lactic Acid 1.10 mmol/L (0.7-2.0) 10/13/20 04:52 Calcium 9.0 mg/dL (8.4-10.2) 10/22/20 06:15 Phosphorus 5.20 mg/dL (2.5-4.5) H D 10/17/20 03:32 Magnesium 2.30 mg/dL (1.7-2.3) 10/17/20 03:32 Ferritin 81.4 ng/mL (30.0-300.0) 10/10/20 10:48 Total Bilirubin 1.70 mg/dL (0.1-1.2) H 10/18/20 03:27 AST 37 units/L (5-40) 10/18/20 03:27 ALT 32 units/L (7-56) 10/18/20 03:27 Alkaline Phosphatase 97 units/L (35-129) 10/18/20 03:27 Ammonia 214.0 umol/L (25-60) H 10/10/20 10:46 Lactate Dehydrogenase 386 units/L (91-180) H 10/10/20 10:48 Total Creatine Kinase 1192 units/L (55-170) H 10/10/20 18:18 CK-MB (CK-2) 21.7 ng/mL (0.0-4.0) H 10/10/20 18:18 CK-MB (CK-2) Rel Index 1.8 (0-4) 10/10/20 18:18 Troponin T 0.125 ng/mL (0.00-0.029) H* D 10/12/20 04:00 C-Reactive Protein 0.90 mg/dL (0.00-1.30) 10/10/20 10:48 NT-Pro-B Natriuret Pep 1187 pg/mL (0-900) H 10/10/20 10:46 Total Protein 6.3 g/dL (6.3-8.2) 10/18/20 03:27 Albumin 3.1 g/dL (3.9-5) L 10/18/20 03:27 Albumin/Globulin Ratio 1.0 % 10/18/20 03:27 Triglycerides 278 mg/dL (2-149) H 10/13/20 04:52 Cholesterol 138 mg/dL (50-199) 10/10/20 18:18 LDL Cholesterol Direct 76 mg/dL (50-130) 10/10/20 18:18 HDL Cholesterol 49 mg/dL (40-59) 10/10/20 18:18 Cholesterol/HDL Ratio 2.81 % 10/10/20 18:18 Procalcitonin 4.98 ng/mL (<0.15) 10/15/20 04:12 TSH 6.260 mlU/mL (0.270-4.200) H 10/10/20 10:46 Arterial Blood Glucose 140 mg/dL (65-95) H 10/21/20 04:20 Arterial Blood Ionized Calcium 5.1 mg/dL (4.6-5.3) 10/21/20 04:20 Urine Color Angelica (Yellow) 10/18/20 Unknown Urine Turbidity Cloudy (Clear) 10/18/20 Unknown Urine pH 5.0 (5.0-7.0) 10/18/20 Unknown Ur Specific [place] 1.017 (1.003-1.030) 10/18/20 Unknown Urine Protein 100 mg/dl mg/dL (Negative) 10/18/20 Unknown Urine Glucose (UA) Neg mg/dL (Negative) 10/18/20 Unknown Urine Ketones Neg mg/dL (Negative) 10/18/20 Unknown Urine Blood Lg (Negative) 10/18/20 Unknown Urine Nitrite Neg (Negative) 10/18/20 Unknown Urine Bilirubin Neg (Negative) 10/18/20 Unknown Urine Urobilinogen 4.0 mg/dL (<2.0) 10/18/20 Unknown Ur Leukocyte Esterase Neg (Negative) 10/18/20 Unknown Urine WBC (Auto) 115.0 /HPF (0.0-6.0) H 10/18/20 Unknown Urine RBC (Auto) 98.0 /HPF (0.0-6.0) 10/18/20 Unknown U Epithel Cells (Auto) 2.0 /HPF (0-13.0) 10/18/20 Unknown Urine WBC Clumps 3+ /HPF 10/18/20 Unknown Urine Mucus Few /HPF 10/11/20 13:30 Urine Eosinophils None seen (None Seen) 10/11/20 13:30 Urine Creatinine 93.7 mg/dL (0.1-20.0) H 10/19/20 13:14 Urine Sodium 25 mmol/L 10/19/20 13:14 Urine Urea Nitrogen 845 10/19/20 13:14 Random Vancomycin 5.8 ug/mL (0-40.0) 10/21/20 06:30 Urine Opiates Screen Negative 10/10/20 10:50 Urine Methadone Screen Negative 10/10/20 10:50 Ur Barbiturates Screen Negative 10/10/20 10:50 Ur Phencyclidine Scrn Negative 10/10/20 10:50 Ur Amphetamines Screen Negative 10/10/20 10:50 U Benzodiazepines Scrn Negative 10/10/20 10:50 Urine Cocaine Screen Negative 10/10/20 10:50 U Marijuana (THC) Screen Positive 10/10/20 10:50 Drugs of Abuse Note Disclamer 10/10/20 10:50 Plasma/Serum Alcohol < 0.01 % (0-0.07) 10/10/20 10:48 Coronavirus (PCR) Negative (Negative) 10/11/20 Unknown Blood Type AB POSITIVE 10/10/20 10:48 Antibody Screen Negative 10/10/20 10:48 Microbiology: Microbiology 10/18/20 11:00 Peripheral/Venous Blood Culture - Preliminary NO GROWTH AFTER 72 HOURS 10/18/20 11:00 Peripheral/Venous Blood Culture - Preliminary NO GROWTH AFTER 72 HOURS Tuttle/IV: Voiding Method Diaper Active Medications - Current Medications Current Medications: Generic Name Dose Route Start Last Admin Trade Name Freq PRN Reason Stop Dose Admin Acetaminophen 650 mg 10/10/20 21:51 10/20/20 09:11 Acetaminophen 325 Mg Tab PO 650 mg Q4H PRN Administration Pain MILD(1-3)/Fever >100.5/SALVADOR Acetaminophen 650 mg 10/11/20 11:24 10/17/20 17:16 Acetaminophen 650 Mg Rect Supp MD 650 mg Q6H PRN Administration Fever >101 Albuterol 2.5 mg 10/11/20 13:12 Albuterol 2.5 Mg/3 Ml Nebu IH Q6HRT PRN Shortness Of Breath Lipase/Protease/Amylase 1 each 10/10/20 22:18 Lipase 10,500/Protease 25,000/Amylase 43,750 (Units) Dr Santana FEEDTUBE PRN PRN For Clogged Feeding Tube Clonidine HCl 0.3 mg 10/14/20 15:00 10/21/20 14:05 Clonidine Tts 0.3 Mg/24 Hr Patch TD 0.3 mg Fr PEPITO Administration Docusate Sodium 100 mg 10/16/20 22:00 10/21/20 21:26 Docusate Sodium 100 Mg/10 Ml Oral Liqd PO 100 mg BID PEPITO Administration Fentanyl 50 mcg 10/16/20 14:10 10/20/20 07:43 Fentanyl 100 Mcg/2 Ml Inj IV 50 mcg Q10MIN PRN Administration ANALGESIA Fluticasone Propionate 50 mcg 10/18/20 14:00 10/21/20 21:27 Fluticasone Propionate Nasal [place] 16 Gm NS 50 mcg BID PEPITO Administration Glycopyrrolate 2 mg 10/19/20 14:00 10/22/20 03:14 Glycopyrrolate 1 Mg Tab PO 2 mg Q6H PEPITO Administration Heparin Sodium (Porcine) 5,000 unit 10/11/20 22:00 10/21/20 21:27 Heparin 5,000 Unit/1 Ml Vial SUB-Q 5,000 unit Q12HR PEPITO Administration Hydralazine HCl 5 mg 10/15/20 20:25 10/21/20 16:39 Hydralazine 20 Mg/1 Ml Inj IV 5 mg Q6H PRN Administration Hypertension Hydralazine HCl 50 mg 10/19/20 14:00 10/22/20 06:04 Hydralazine 25 Mg Tab PO 50 mg Q8HR EPPITO Administration Hydromorphone HCl 0.5 mg 10/10/20 21:51 10/15/20 14:45 Hydromorphone 1 Mg/1 Ml Inj IV 0.5 mg Q3H PRN Administration Pain , Severe (7-10) Hydrophilic Ointment 1 applic 10/10/20 10:34 Lip Therapy Vaseline TP Q2HR PRN Dry Lips Propofol 1,000 mg in 100 mls @ 4.23 mls/hr 10/10/20 12:00 10/17/20 00:36 Diprivan 10 Mg/Ml IV 0 mcg/kg/min TITR PEPITO 0 mls/hr Titration Protocol 5 MCG/KG/MIN Nitroglycerin/Dextrose 50 mg in 250 mls @ 3 mls/hr 10/10/20 13:00 10/10/20 13:17 Tridil Drip 50mg/250ml IV 0 mcg/min TITR PEPITO 0 mls/hr Titration Protocol 10 MCG/MIN Norepinephrine 8 mg/ Sodium 250 mls @ 3.75 mls/hr 10/10/20 14:00 10/10/20 22: 15 Chloride IV 0 mcg/min TITRATE PEPITO 0 mls/hr Titration Protocol 2 MCG/MIN Levetiracetam 500 mg/ Dextrose 105 mls @ 400 mls/hr 10/13/20 18:00 10/22/20 06:03 IV 400 mls/hr Q12H PEPITO Administration Fentanyl Citrate 2,000 mcg in 100 mls @ 6.175 mls/hr 10/16/20 15:00 10/22/20 08:42 Fentanyl Drip Premix IV 2 mcg/kg/hr TITR PEPITO 12.35 mls/hr Administration Protocol 1 MCG/KG/HR Linezolid 600 mg in 300 mls @ 300 mls/hr 10/20/20 12:00 10/21/20 21:26 Zyvox 600mg/300ml IV 10/29/20 22:59 300 mls/hr Q12HR PEPITO Administration Protocol Sodium Chloride 1,000 mls @ 75 mls/hr 10/20/20 14:00 10/21/20 16:40 Nacl 0.9% 1000 Ml IV 10/23/20 03:19 75 mls/hr DIRECT PEPITO Administration Metoclopramide HCl 10 mg 10/10/20 21:51 Metoclopramide 10 Mg/2 Ml Inj IV Q6H PRN Nausea And Vomiting Metoprolol Tartrate 100 mg 10/21/20 14:00 10/22/20 08:13 Metoprolol Tartrate 50 Mg Tab PO 100 mg TID PEPITO Administration Multi-Ingred Cream/Lotion/Oil/Oint 1 applic 10/10/20 10:34 Mineral Oil/Petrolatum, White Ophth Oint 3.5 Gm OU Q4HR PRN Dry Eye(s) Ondansetron HCl 4 mg 10/10/20 21:51 Ondansetron 4 Mg/2 Ml Inj IV Q3H PRN Nausea And Vomiting Pantoprazole Sodium 40 mg 10/12/20 22:00 10/21/20 21:27 Pantoprazole 40 Mg Inj IV 40 mg BID PEPITO Administration Polyethylene Glycol 17 gm 10/17/20 10:00 10/21/20 09:55 Polyethylene Glycol 3350 17 Gm Powder PO 17 gm QDAY PEPITO Administration Scopolamine 1 each 10/17/20 10:00 10/20/20 09:14 Scopolamine Transdermal Patch 72 Hr TD 1 each Q3D PEPITO Administration Simple Syrup 15 ml 10/10/20 22:18 Simple Syrup 15 Ml FEEDTUBE PRN PRN Hypoglycemia Simple Syrup 30 ml 10/10/20 22:18 Simple Syrup 15 Ml FEEDTUBE PRN PRN Hypoglycemia Sodium Bicarbonate 325 mg 10/10/20 22:18 Sodium Bicarbonate 325 Mg Tab FEEDTUBE PRN PRN For Clogged Feeding Tube Sodium Chloride 10 ml 10/10/20 22:00 10/21/20 21:27 Sodium Chloride 0.9% 10 Ml Flush Syringe IV 10 ml BID PEPITO Administration Sodium Chloride 10 ml 10/10/20 21:51 10/21/20 09:56 Sodium Chloride 0.9% 10 Ml Flush Syringe IV 10 ml PRN PRN Administration LINE FLUSH Nutrition/Malnutrition Assess - Dietary Evaluation Nutrition/Malnutrition Findings: Nutrition Notes Start: 10/11/20 08:38 Freq: Status: Active Protocol: Document 04/09/21 13:44 CW (Rec: 10/21/20 13:48 CW [id number]) Nutrition Notes Current Diagnosis Acute Kidney Injury,Sepsis, Hypertension,Heart Failure, Respiratory Failure Other Pertinent Diagnosis GIB, pneu, Covid 19, [place], pulmonary edema Current Diet TF Nepro at 45 ml/hr Labs/Tests BUN 104 Cr 2.9 BG 153 Pertinent Medications Miralax Colace NS at 75ml/hr Height 6 ft Weight 129.7 kg [place] Body Weight (kg) 80.90 BMI 38.7 Weight change and time frame Weight gain noted, will monitor Weight Status Morbidly Obese Subjective/Other Information F/T for TF at goal and tolerance. TF now running at goal of 45 ml/hr and is being well tolerated Percent of energy/protein needs met: 100%/54% Current % PO Negligible Minimum of two criteria No physical signs of malnutrition #2 Nutrition Diagnosis Inadequate energy intake As Evidenced by Signs and Symptoms TF Providing 100% of kcal needs Diagnosis Progress(for reassessment Resolved documentation) #1 Nutrition Diagnosis Inadequate oral intake Diagnosis Progress(for reassessment Continues documentation) Is patient on ventilator? Yes Is Patient Ambulatory and/or Out of Bed No REE-([facility]-confined to bed) 2619.528 Kcal/Kg value to use for calculation 14 Approximate Energy Requirements Using 1816 kcal/Kg Calculation Used for Recommendations Kcal/kg Additional Notes protein needs: >162g (>2 kgIBW ) fluid needs: 1 ml/kcal or per MD Nutrition Intervention Change Diet Order: Continue TF Nutrition Support: Nepro at 45 ml/hr with a free water flush of 200 ml q4h Kcal 1,944 Protein (gm) 87 Fluid (mL) 785 Goal #1 Tolerate TF Goal #2 Meet at least 75% of kcal needs via TF Anticipated Discharge Needs: unable to determine at this time Follow-Up By: 10/25/20 Additional Comments F/U for TF tolerance
[2020-10-22] MEDS: HEPARIN 5,000 UNIT/1 ML VIAL SUB-Q SCH ×2 (09:38→21:41)
[2020-10-22] MEDS: DOCUSATE SODIUM 100 MG/10 ML ORAL LIQD PO SCH ×2 (09:39→21:41)
[2020-10-22] MEDS: PANTOPRAZOLE 40 MG INJ IV SCH ×2 (09:39→21:41)
[2020-10-22] MEDS: POLYETHYLENE GLYCOL 3350 17 GM POWDER PO SCH (09:40)
[2020-10-22] MEDS: FLUTICASONE PROPIONATE NASAL SPRAY 16 GM NS SCH ×2 (09:43→21:41)
[2020-10-22] MEDS: LINEZOLID 600 MG/300 ML BAG IV SCH ×2 (10:33→21:40)
--- NOTE | 2020-10-22 11:03 | Progress Note ---
Assessment and Plan Cardiac arrest x3 with ROSC Severe septic and cardiogenic shock Acute respiratory failure with hypoxia and hypercarbia on MVS Acute pulmonary edema MOE (acute kidney injury) Lactic acidosis, severe metabolic acidosis Bilateral pneumonia, aspiration pneumonia Elevated troponins -ABG and CXR today CXR reviewed at the bedside- persitent interstitial infiltrates with plate atelectasis right lung field ABG 7.278/67.8/93.7/31 -Diuresis as tolerated -SAT/SBT today. If needed resume Fentanyl at half dose, discussed with RN Plan to get MRI on Saturday -VAP bundle addressed, aspiration precautions HOB >30 -probably an element of hypoxic damage, Neurology work up on going. -Titrate supplemental oxygen to keep O2 sats between 89-92% - Peep at 8, continue to monitor airway pressures closely - Lung protective strategies - continue bronchodilators with pulmonary hygiene per RT -Daily assessment for readiness to wean. SAT and SBTs daily - avoid nephrotoxins, renal dosing of all medications -Blood pressure control and management - Accuchecks with glycemic control per SSI (While critically ill target blood glucose of 140-180 mg/dL; avoid hypoglycemia) - Titrate for target RASS 0 to -1 - Maintenance of sleep-wake cycle, avoid delirium -Enteric nutritional support - Stress ulcer prophylaxis-Pantoprazole -VTE prophyalxis- Heparin -Mobility, off loading, frequent turning per facility protocol to prevent pressure ulcers - Monitor hemodynamics closely CONDITION: CRITICAL PROGNOSIS: GUARDED CODE STATUS: FULL CODE The high probability of a clinically significant, sudden or life-threatening deterioration of the [respiratory, cardiovascular, renal & neurologic] system(s) required my full and direct attention, intervention and personal management. The aggregate critical care time was [34 ] minutes without overlap. Time includes spent on; [x] Data Review and interpretation [x] Patient assessment and monitoring of vital signs [x] Documentation [x] Medication orders and management Subjective Date of service: 10/22/20 Principal diagnosis: Cardiac arrest; Septic Shock; Ac. hypoxemic & hypercapnic resp failure; MOE Interval history: Patient is seen today for: Cardiac arrest with ROSC; Severe septic and cardiogenic shock; Acute respiratory failure with hypoxemia and hypercarbia; Acute pulmonary edema; MOE; Lactic acidosis; severe metabolic acidosis; Bilate ral pneumonia; aspiration pneumonia; Elevated troponins Seen and examined at bedside; 24hour events reviewed; nursing and respiratory care staff consulted; no adverse overnight events reported to me; resting peacefully in bed on MVS; no fevers, no vomiting, no diarrhea, tolerating tube feedings Mental status changes persist - on Fentnayl at 2 Objective Vital Signs - 12hr 10/21/20 10/22/20 10/22/20 23:30 00:00 00:10 Temperature 100.3 F H Pulse Rate 81 76 72 Respiratory 17 Rate Blood Pressure 138/66 126/75 146/77 O2 Sat by Pulse 97 97 97 Oximetry 10/22/20 10/22/20 10/22/20 00:30 01:00 01:30 Temperature Pulse Rate 73 71 72 Respiratory 11 L 9 L Rate Blood Pressure 115/60 110/61 113/55 O2 Sat by Pulse 98 97 96 Oximetry 10/22/20 10/22/20 10/22/20 02:00 02:30 03:00 Temperature Pulse Rate 71 71 71 Respiratory 12 10 L 9 L Rate Blood Pressure 115/58 124/68 124/48 O2 Sat by Pulse 97 96 97 Oximetry 10/22/20 10/22/20 10/22/20 03:30 04:00 04:01 Temperature 99.3 F Pulse Rate 70 71 70 Respiratory 9 L 12 Rate Blood Pressure 119/54 130/65 O2 Sat by Pulse 96 96 97 Oximetry 10/22/20 10/22/20 10/22/20 04:30 05:00 05:30 Temperature Pulse Rate 69 72 70 Respiratory 10 L 9 L 16 Rate Blood Pressure 122/60 111/56 115/51 O2 Sat by Pulse 97 96 97 Oximetry 10/22/20 10/22/20 10/22/20 06:00 06:31 07:00 Temperature Pulse Rate 68 68 69 Respiratory 16 16 16 Rate Blood Pressure 107/55 139/73 120/59 O2 Sat by Pulse 98 99 98 Oximetry 10/22/20 10/22/20 10/22/20 07:29 07:30 07:47 Temperature 98.2 F Pulse Rate 69 68 Respiratory 16 Rate Blood Pressure 111/57 111/57 O2 Sat by Pulse 98 98 Oximetry 10/22/20 10/22/20 10/22/20 08:00 08:13 08:30 Temperature Pulse Rate 67 66 69 Respiratory 16 16 Rate Blood Pressure 111/51 111/51 120/64 O2 Sat by Pulse 97 98 Oximetry Constitutional: no acute distress, other (middle aged obese male with mildly increased respiratory efort at rest) Eyes: non-icteric ENT: oropharynx moist, oropharyngeal exudate pre, other (ETT 23 cm ANNIE) Neck: supple, no lymphadenopathy, no JVD Effort: mildly labored Ascultation: Bilateral: clear, diminished breath sounds, rhonchi (scant) Percussion: Bilateral: not dull Cardiovascular: regular rate and rhythm, other (S1,S2) Gastrointestinal: normoactive bowel sounds, soft, non-tender, non-distended (protuberant) Integumentary: normal Extremities: no cyanosis, no edema, pulses normal, no ischemia or petechiae Neurologic: pupils equal and round, unable to assess Psychiatric: other (unable to assess re: AMS) CBC and BMP: 10/21/20 06:30 10/22/20 06:15 ABG, PT/INR, D-dimer: ABG ABG pH 7.262 (7.320-7.450) L 10/21/20 04:20 POC ABG pCO2 72.4 mmHg (32.0-48.0) H 10/21/20 04:20 ABG pCO2 55.5 mm Hg 10/16/20 05:10 POC ABG pO2 81.6 mmHg (83-108) L 10/21/20 04:20 ABG pO2 104.5 mm Hg (80.0-90.0) H 10/16/20 05:10 POC ABG HCO3 31.9 10/21/20 04:20 ABG O2 Saturation 95.2 (0-100) 10/21/20 04:20 PT/INR, D-dimer PT 13.8 Sec. (12.2-14.9) 10/10/20 18:18 INR 1.07 (0.87-1.13) 10/10/20 18:18 D-Dimer 679.5 ng/mlDDU (0-234) H 10/10/20 10:48 Abnormal lab findings: Abnormal Labs 10/10/20 10/10/20 10/10/20 10:46 10:46 10:46 WBC RBC Hgb Hct RDW Lymph % (Auto) [place] % (Auto) Lymph # (Auto) [place] # (Auto) Seg Neutrophils % Lymphocytes % (Manual) Monocytes % (Manual) Seg Neutrophils # Seg Neutrophils # Man Lymphocytes # (Manual) Monocytes # (Manual) D-Dimer Heparin Anti-Xa Level ABG pH POC ABG pCO2 POC ABG pO2 ABG pO2 ABG HCO3 ABG O2 Saturation ABG Base Excess ABG Hemoglobin ABG Oxyhemoglobin ABG Sodium ABG Potassium ABG Chloride ABG Glucose VBG pH Oxyhemoglobin Carboxyhemoglobin Sodium Potassium Chloride Carbon Dioxide BUN Creatinine Glucose POC Glucose Lactic Acid 13.60 H* Calcium Phosphorus Magnesium Total Bilirubin AST ALT Ammonia 214.0 H Lactate Dehydrogenase Total Creatine Kinase CK-MB (CK-2) Troponin T NT-Pro-B Natriuret Pep Total Protein Albumin Triglycerides TSH 6.260 H Arterial Blood Glucose Arterial Blood Ionized Calcium Urine pH Urine WBC (Auto) Urine Creatinine 10/10/20 10/10/20 10/10/20 10:46 10:48 10:48 WBC RBC 5.28 H Hgb 15.5 H Hct 48.8 H RDW Lymph % (Auto) [place] % (Auto) Lymph # (Auto) [place] # (Auto) Seg Neutrophils % Lymphocytes % (Manual) 42.0 H Monocytes % (Manual) Seg Neutrophils # Seg Neutrophils # Man Lymphocytes # (Manual) Monocytes # (Manual) D-Dimer Heparin Anti-Xa Level ABG pH POC ABG pCO2 POC ABG pO2 ABG pO2 ABG HCO3 ABG O2 Saturation ABG Base Excess ABG Hemoglobin ABG Oxyhemoglobin ABG Sodium ABG Potassium ABG Chloride ABG Glucose VBG pH Oxyhemoglobin Carboxyhemoglobin Sodium Potassium 3.3 L Chloride 91.2 L Carbon Dioxide BUN Creatinine 1.8 H Glucose 231 H POC Glucose Lactic Acid Calcium Phosphorus Magnesium Total Bilirubin AST 60 H ALT 57 H Ammonia Lactate Dehydrogenase Total Creatine Kinase CK-MB (CK-2) Troponin T NT-Pro-B Natriuret Pep 1187 H Total Protein 9.0 H Albumin Triglycerides TSH Arterial Blood Glucose Arterial Blood Ionized Calcium Urine pH Urine WBC (Auto) Urine Creatinine 10/10/20 10/10/20 10/10/20 10:48 10:48 10:48 WBC RBC Hgb Hct RDW Lymph % (Auto) [place] % (Auto) Lymph # (Auto) [place] # (Auto) Seg Neutrophils % Lymphocytes % (Manual) Monocytes % (Manual) Seg Neutrophils # Seg Neutrophils # Man Lymphocytes # (Manual) Monocytes # (Manual) D-Dimer 679.5 H Heparin Anti-Xa Level ABG pH POC ABG pCO2 POC ABG pO2 ABG pO2 ABG HCO3 ABG O2 Saturation ABG Base Excess ABG Hemoglobin ABG Oxyhemoglobin ABG Sodium ABG Potassium ABG Chloride ABG Glucose VBG pH 6.870 L* Oxyhemoglobin Carboxyhemoglobin Sodium Potassium Chloride Carbon Dioxide BUN Creatinine Glucose POC Glucose Lactic Acid Calcium Phosphorus Magnesium Total Bilirubin AST ALT Ammonia Lactate Dehydrogenase 386 H Total Creatine Kinase CK-MB (CK-2) Troponin T NT-Pro-B Natriuret Pep Total Protein Albumin Triglycerides TSH Arterial Blood Glucose Arterial Blood Ionized Calcium Urine pH Urine WBC (Auto) Urine Creatinine 10/10/20 10/10/20 10/10/20 14:10 14:20 15:50 WBC RBC Hgb Hct RDW Lymph % (Auto) [place] % (Auto) Lymph # (Auto) [place] # (Auto) Seg Neutrophils % Lymphocytes % (Manual) Monocytes % (Manual) Seg Neutrophils # Seg Neutrophils # Man Lymphocytes # (Manual) Monocytes # (Manual) D-Dimer Heparin Anti-Xa Level ABG pH 7.175 L 7.247 L POC ABG pCO2 85.0 H POC ABG pO2 43.7 L ABG pO2 60.3 L ABG HCO3 32.0 H ABG O2 Saturation 86.1 L ABG Base Excess ABG Hemoglobin ABG Oxyhemoglobin 67.7 L ABG Sodium ABG Potassium ABG Chloride ABG Glucose 247 H VBG pH Oxyhemoglobin 84.4 L Carboxyhemoglobin Sodium Potassium Chloride Carbon Dioxide BUN Creatinine Glucose POC Glucose Lactic Acid 4.00 H* Calcium Phosphorus Magnesium Total Bilirubin AST ALT Ammonia Lactate Dehydrogenase Total Creatine Kinase CK-MB (CK-2) Troponin T NT-Pro-B Natriuret Pep Total Protein Albumin Triglycerides TSH Arterial Blood Glucose 247 H Arterial Blood Ionized Calcium 4.4 L Urine pH Urine WBC (Auto) Urine Creatinine 10/10/20 10/10/20 10/10/20 15:50 16:22 18:18 WBC RBC Hgb Hct RDW Lymph % (Auto) [place] % (Auto) Lymph # (Auto) [place] # (Auto) Seg Neutrophils % Lymphocytes % (Manual) Monocytes % (Manual) Seg Neutrophils # Seg Neutrophils # Man Lymphocytes # (Manual) Monocytes # (Manual) D-Dimer Heparin Anti-Xa Level ABG pH 7.171 L POC ABG pCO2 96.6 H POC ABG pO2 55.3 L ABG pO2 ABG HCO3 ABG O2 Saturation ABG Base Excess ABG Hemoglobin ABG Oxyhemoglobin 81.4 L ABG Sodium ABG Potassium ABG Chloride ABG Glucose 115 H VBG pH Oxyhemoglobin Carboxyhemoglobin Sodium Potassium Chloride Carbon Dioxide BUN Creatinine Glucose POC Glucose 132 H Lactic Acid Calcium Phosphorus Magnesium Total Bilirubin AST ALT Ammonia Lactate Dehydrogenase Total Creatine Kinase 1192 H CK-MB (CK-2) 21.7 H Troponin T 0.377 H* D NT-Pro-B Natriuret Pep Total Protein Albumin Triglycerides TSH Arterial Blood Glucose 115 H Arterial Blood Ionized Calcium Urine pH Urine WBC (Auto) Urine Creatinine 10/10/20 10/10/20 10/10/20 18:18 18:18 22:49 WBC 23.0 H RBC 5.12 H Hgb Hct RDW Lymph % (Auto) [place] % (Auto) Lymph # (Auto) [place] # (Auto) Seg Neutrophils % Lymphocytes % (Manual) 4.0 L Monocytes % (Manual) 9.0 H Seg Neutrophils # Seg Neutrophils # Man 13.8 H Lymphocytes # (Manual) 0.9 L Monocytes # (Manual) 2.1 H D-Dimer Heparin Anti-Xa Level ABG pH POC ABG pCO2 POC ABG pO2 ABG pO2 ABG HCO3 ABG O2 Saturation ABG Base Excess ABG Hemoglobin ABG Oxyhemoglobin ABG Sodium ABG Potassium ABG Chloride ABG Glucose VBG pH Oxyhemoglobin Carboxyhemoglobin Sodium 146 H Potassium Chloride Carbon Dioxide 34 H D BUN 27 H Creatinine 2.7 H Glucose 102 H POC Glucose Lactic Acid Calcium Phosphorus Magnesium Total Bilirubin AST 90 H ALT 66 H Ammonia Lactate Dehydrogenase Total Creatine Kinase CK-MB (CK-2) Troponin T 0.273 H* D NT-Pro-B Natriuret Pep Total Protein Albumin Triglycerides TSH Arterial Blood Glucose Arterial Blood Ionized Calcium Urine pH Urine WBC (Auto) Urine Creatinine 10/11/20 10/11/20 10/11/20 02:00 02:00 02:00 WBC 17.3 H RBC Hgb Hct RDW Lymph % (Auto) 3.9 L [place] % (Auto) Lymph # (Auto) 0.7 L [place] # (Auto) Seg Neutrophils % 93.0 H Lymphocytes % (Manual) Monocytes % (Manual) Seg Neutrophils # 16.1 H Seg Neutrophils # Man Lymphocytes # (Manual) Monocytes # (Manual) D-Dimer Heparin Anti-Xa Level ABG pH POC ABG pCO2 POC ABG pO2 ABG pO2 ABG HCO3 ABG O2 Saturation ABG Base Excess ABG Hemoglobin ABG Oxyhemoglobin ABG Sodium ABG Potassium ABG Chloride ABG Glucose VBG pH Oxyhemoglobin Carboxyhemoglobin Sodium 149 H Potassium 3.3 L Chloride 95.3 L Carbon Dioxide 37 H BUN 29 H Creatinine 2.6 H Glucose POC Glucose Lactic Acid Calcium Phosphorus Magnesium Total Bilirubin AST 80 H ALT 59 H Ammonia Lactate Dehydrogenase Total Creatine Kinase CK-MB (CK-2) Troponin T 0.201 H* D NT-Pro-B Natriuret Pep Total Protein Albumin 3.6 L Triglycerides TSH Arterial Blood Glucose Arterial Blood Ionized Calcium Urine pH Urine WBC (Auto) Urine Creatinine 10/11/20 10/11/20 10/11/20 03:51 08:35 11:15 WBC RBC Hgb Hct RDW Lymph % (Auto) [place] % (Auto) Lymph # (Auto) [place] # (Auto) Seg Neutrophils % Lymphocytes % (Manual) Monocytes % (Manual) Seg Neutrophils # Seg Neutrophils # Man Lymphocytes # (Manual) Monocytes # (Manual) D-Dimer Heparin Anti-Xa Level 0.22 L ABG pH 7.491 H POC ABG pCO2 57.6 H POC ABG pO2 ABG pO2 ABG HCO3 ABG O2 Saturation ABG Base Excess ABG Hemoglobin ABG Oxyhemoglobin ABG Sodium 150.0 H ABG Potassium 3.1 L ABG Chloride 96.0 L ABG Glucose 122 H VBG pH Oxyhemoglobin Carboxyhemoglobin Sodium Potassium Chloride Carbon Dioxide BUN Creatinine Glucose POC Glucose 151 H Lactic Acid Calcium Phosphorus Magnesium Total Bilirubin AST ALT Ammonia Lactate Dehydrogenase Total Creatine Kinase CK-MB (CK-2) Troponin T NT-Pro-B Natriuret Pep Total Protein Albumin Triglycerides TSH Arterial Blood Glucose 122 H Arterial Blood Ionized Calcium 3.9 L Urine pH Urine WBC (Auto) Urine Creatinine 10/11/20 10/11/20 10/11/20 13:30 13:30 13:30 WBC 15.0 H RBC Hgb Hct RDW Lymph % (Auto) [place] % (Auto) Lymph # (Auto) [place] # (Auto) Seg Neutrophils % Lymphocytes % (Manual) Monocytes % (Manual) Seg Neutrophils # Seg Neutrophils # Man Lymphocytes # (Manual) Monocytes # (Manual) D-Dimer Heparin Anti-Xa Level ABG pH POC ABG pCO2 POC ABG pO2 ABG pO2 ABG HCO3 ABG O2 Saturation ABG Base Excess ABG Hemoglobin ABG Oxyhemoglobin ABG Sodium ABG Potassium ABG Chloride ABG Glucose VBG pH Oxyhemoglobin Carboxyhemoglobin Sodium Potassium Chloride Carbon Dioxide BUN Creatinine Glucose POC Glucose Lactic Acid Calcium Phosphorus Magnesium Total Bilirubin AST ALT Ammonia Lactate Dehydrogenase Total Creatine Kinase CK-MB (CK-2) Troponin T NT-Pro-B Natriuret Pep Total Protein Albumin Triglycerides TSH Arterial Blood Glucose Arterial Blood Ionized Calcium Urine pH 9.0 H Urine WBC (Auto) 18.0 H Urine Creatinine 80.5 H 10/11/20 10/11/20 10/12/20 17:17 23:14 03:53 WBC RBC Hgb Hct RDW Lymph % (Auto) [place] % (Auto) Lymph # (Auto) [place] # (Auto) Seg Neutrophils % Lymphocytes % (Manual) Monocytes % (Manual) Seg Neutrophils # Seg Neutrophils # Man Lymphocytes # (Manual) Monocytes # (Manual) D-Dimer Heparin Anti-Xa Level ABG pH 7.545 H POC ABG pCO2 54.6 H POC ABG pO2 231.9 H ABG pO2 ABG HCO3 ABG O2 Saturation ABG Base Excess ABG Hemoglobin ABG Oxyhemoglobin 98.5 H ABG Sodium 150.5 H ABG Potassium 3.2 L ABG Chloride 96.0 L ABG Glucose 148 H VBG pH Oxyhemoglobin Carboxyhemoglobin Sodium Potassium Chloride Carbon Dioxide BUN Creatinine Glucose POC Glucose 121 H 135 H Lactic Acid Calcium Phosphorus Magnesium Total Bilirubin AST ALT Ammonia Lactate Dehydrogenase Total Creatine Kinase CK-MB (CK-2) Troponin T NT-Pro-B Natriuret Pep Total Protein Albumin Triglycerides TSH Arterial Blood Glucose 148 H Arterial Blood Ionized Calcium 3.8 L Urine pH Urine WBC (Auto) Urine Creatinine 10/12/20 10/12/20 10/12/20 04:00 05:10 05:12 WBC 14.3 H RBC Hgb 11.6 L Hct 35.2 L RDW Lymph % (Auto) [place] % (Auto) Lymph # (Auto) [place] # (Auto) Seg Neutrophils % Lymphocytes % (Manual) Monocytes % (Manual) Seg Neutrophils # Seg Neutrophils # Man Lymphocytes # (Manual) Monocytes # (Manual) D-Dimer Heparin Anti-Xa Level ABG pH POC ABG pCO2 POC ABG pO2 ABG pO2 ABG HCO3 ABG O2 Saturation ABG Base Excess ABG Hemoglobin ABG Oxyhemoglobin ABG Sodium ABG Potassium ABG Chloride ABG Glucose VBG pH Oxyhemoglobin Carboxyhemoglobin Sodium 155 H Potassium 3.3 L Chloride 97.9 L Carbon Dioxide 47 H* D BUN 50 H Creatinine 3.4 H Glucose 146 H POC Glucose 137 H Lactic Acid Calcium 8.0 L Phosphorus Magnesium Total Bilirubin AST ALT Ammonia Lactate Dehydrogenase Total Creatine Kinase CK-MB (CK-2) Troponin T 0.125 H* D NT-Pro-B Natriuret Pep Total Protein Albumin Triglycerides TSH Arterial Blood Glucose Arterial Blood Ionized Calcium Urine pH Urine WBC (Auto) Urine Creatinine 10/12/20 10/12/20 10/12/20 11:39 16:01 19:49 WBC RBC Hgb Hct RDW Lymph % (Auto) [place] % (Auto) Lymph # (Auto) [place] # (Auto) Seg Neutrophils % Lymphocytes % (Manual) Monocytes % (Manual) Seg Neutrophils # Seg Neutrophils # Man Lymphocytes # (Manual) Monocytes # (Manual) D-Dimer Heparin Anti-Xa Level ABG pH POC ABG pCO2 POC ABG pO2 ABG pO2 ABG HCO3 ABG O2 Saturation ABG Base Excess ABG Hemoglobin ABG Oxyhemoglobin ABG Sodium ABG Potassium ABG Chloride ABG Glucose VBG pH Oxyhemoglobin Carboxyhemoglobin Sodium 157 H Potassium 3.3 L Chloride Carbon Dioxide 47 H* BUN 52 H Creatinine 3.0 H Glucose 137 H POC Glucose 138 H 119 H Lactic Acid Calcium 8.0 L Phosphorus Magnesium Total Bilirubin AST ALT Ammonia Lactate Dehydrogenase Total Creatine Kinase CK-MB (CK-2) Troponin T NT-Pro-B Natriuret Pep Total Protein Albumin Triglycerides TSH Arterial Blood Glucose Arterial Blood Ionized Calcium Urine pH Urine WBC (Auto) Urine Creatinine 10/12/20 10/13/20 10/13/20 23:37 02:28 04:52 WBC RBC Hgb Hct RDW Lymph % (Auto) [place] % (Auto) Lymph # (Auto) [place] # (Auto) Seg Neutrophils % Lymphocytes % (Manual) Monocytes % (Manual) Seg Neutrophils # Seg Neutrophils # Man Lymphocytes # (Manual) Monocytes # (Manual) D-Dimer Heparin Anti-Xa Level ABG pH 7.485 H POC ABG pCO2 57.1 H POC ABG pO2 ABG pO2 ABG HCO3 ABG O2 Saturation ABG Base Excess ABG Hemoglobin ABG Oxyhemoglobin ABG Sodium 152.4 H ABG Potassium ABG Chloride ABG Glucose 129 H VBG pH Oxyhemoglobin Carboxyhemoglobin Sodium 155 H Potassium Chloride Carbon Dioxide 45 H* BUN 52 H Creatinine 2.7 H Glucose 121 H POC Glucose 131 H Lactic Acid Calcium Phosphorus Magnesium 2.40 H Total Bilirubin AST ALT Ammonia Lactate Dehydrogenase Total Creatine Kinase CK-MB (CK-2) Troponin T NT-Pro-B Natriuret Pep Total Protein Albumin Triglycerides 278 H TSH Arterial Blood Glucose 129 H Arterial Blood Ionized Calcium 4.1 L Urine pH Urine WBC (Auto) Urine Creatinine 10/13/20 10/13/20 10/13/20 04:52 05:13 11:37 WBC 14.7 H RBC Hgb 11.7 L Hct RDW 15.8 H Lymph % (Auto) [place] % (Auto) Lymph # (Auto) [place] # (Auto) Seg Neutrophils % Lymphocytes % (Manual) Monocytes % (Manual) Seg Neutrophils # Seg Neutrophils # Man Lymphocytes # (Manual) Monocytes # (Manual) D-Dimer Heparin Anti-Xa Level ABG pH POC ABG pCO2 POC ABG pO2 ABG pO2 ABG HCO3 ABG O2 Saturation ABG Base Excess ABG Hemoglobin ABG Oxyhemoglobin ABG Sodium ABG Potassium ABG Chloride ABG Glucose VBG pH Oxyhemoglobin Carboxyhemoglobin Sodium Potassium Chloride Carbon Dioxide BUN Creatinine Glucose POC Glucose 116 H 116 H Lactic Acid Calcium Phosphorus Magnesium Total Bilirubin AST ALT Ammonia Lactate Dehydrogenase Total Creatine Kinase CK-MB (CK-2) Troponin T NT-Pro-B Natriuret Pep Total Protein Albumin Triglycerides TSH Arterial Blood Glucose Arterial Blood Ionized Calcium Urine pH Urine WBC (Auto) Urine Creatinine 10/13/20 10/14/20 10/14/20 17:50 03:45 04:46 WBC 11.1 H RBC Hgb Hct RDW 15.3 H Lymph % (Auto) [place] % (Auto) Lymph # (Auto) [place] # (Auto) Seg Neutrophils % Lymphocytes % (Manual) Monocytes % (Manual) Seg Neutrophils # Seg Neutrophils # Man Lymphocytes # (Manual) Monocytes # (Manual) D-Dimer Heparin Anti-Xa Level ABG pH POC ABG pCO2 59.6 H POC ABG pO2 ABG pO2 ABG HCO3 ABG O2 Saturation ABG Base Excess ABG Hemoglobin ABG Oxyhemoglobin ABG Sodium 151.4 H ABG Potassium 3.3 L ABG Chloride ABG Glucose 138 H VBG pH Oxyhemoglobin Carboxyhemoglobin 1.6 H Sodium Potassium Chloride Carbon Dioxide BUN Creatinine Glucose POC Glucose 140 H Lactic Acid Calcium Phosphorus Magnesium Total Bilirubin AST ALT Ammonia Lactate Dehydrogenase Total Creatine Kinase CK-MB (CK-2) Troponin T NT-Pro-B Natriuret Pep Total Protein Albumin Triglycerides TSH Arterial Blood Glucose 138 H Arterial Blood Ionized Calcium 4.5 L Urine pH Urine WBC (Auto) Urine Creatinine 10/14/20 10/14/20 10/14/20 04:46 05:10 11:11 WBC RBC Hgb Hct RDW Lymph % (Auto) [place] % (Auto) Lymph # (Auto) [place] # (Auto) Seg Neutrophils % Lymphocytes % (Manual) Monocytes % (Manual) Seg Neutrophils # Seg Neutrophils # Man Lymphocytes # (Manual) Monocytes # (Manual) D-Dimer Heparin Anti-Xa Level ABG pH POC ABG pCO2 POC ABG pO2 ABG pO2 ABG HCO3 ABG O2 Saturation ABG Base Excess ABG Hemoglobin ABG Oxyhemoglobin ABG Sodium ABG Potassium ABG Chloride ABG Glucose VBG pH Oxyhemoglobin Carboxyhemoglobin Sodium 152 H Potassium 3.5 L Chloride Carbon Dioxide 38 H D BUN 46 H Creatinine 2.3 H Glucose 127 H POC Glucose 116 H 114 H Lactic Acid Calcium Phosphorus Magnesium Total Bilirubin AST ALT Ammonia Lactate Dehydrogenase Total Creatine Kinase CK-MB (CK-2) Troponin T NT-Pro-B Natriuret Pep Total Protein Albumin Triglycerides TSH Arterial Blood Glucose Arterial Blood Ionized Calcium Urine pH Urine WBC (Auto) Urine Creatinine 10/14/20 10/14/20 10/15/20 18:53 23:23 04:12 WBC RBC Hgb Hct RDW Lymph % (Auto) [place] % (Auto) Lymph # (Auto) [place] # (Auto) Seg Neutrophils % Lymphocytes % (Manual) Monocytes % (Manual) Seg Neutrophils # Seg Neutrophils # Man Lymphocytes # (Manual) Monocytes # (Manual) D-Dimer Heparin Anti-Xa Level ABG pH POC ABG pCO2 POC ABG pO2 ABG pO2 ABG HCO3 ABG O2 Saturation ABG Base Excess ABG Hemoglobin ABG Oxyhemoglobin ABG Sodium ABG Potassium ABG Chloride ABG Glucose VBG pH Oxyhemoglobin Carboxyhemoglobin Sodium 149 H Potassium 3.2 L Chloride Carbon Dioxide 37 H BUN 40 H Creatinine 2.0 H Glucose 124 H POC Glucose 128 H 113 H Lactic Acid Calcium Phosphorus Magnesium Total Bilirubin AST ALT Ammonia Lactate Dehydrogenase Total Creatine Kinase CK-MB (CK-2) Troponin T NT-Pro-B Natriuret Pep Total Protein Albumin Triglycerides TSH Arterial Blood Glucose Arterial Blood Ionized Calcium Urine pH Urine WBC (Auto) Urine Creatinine 10/15/20 10/15/20 10/15/20 04:22 11:39 17:36 WBC RBC Hgb Hct RDW Lymph % (Auto) [place] % (Auto) Lymph # (Auto) [place] # (Auto) Seg Neutrophils % Lymphocytes % (Manual) Monocytes % (Manual) Seg Neutrophils # Seg Neutrophils # Man Lymphocytes # (Manual) Monocytes # (Manual) D-Dimer Heparin Anti-Xa Level ABG pH POC ABG pCO2 POC ABG pO2 ABG pO2 115.0 H ABG HCO3 38.1 H ABG O2 Saturation ABG Base Excess 11.3 H ABG Hemoglobin 11.0 L ABG Oxyhemoglobin ABG Sodium ABG Potassium ABG Chloride ABG Glucose VBG pH Oxyhemoglobin Carboxyhemoglobin Sodium Potassium Chloride Carbon Dioxide BUN Creatinine Glucose POC Glucose 123 H 118 H Lactic Acid Calcium Phosphorus Magnesium Total Bilirubin AST ALT Ammonia Lactate Dehydrogenase Total Creatine Kinase CK-MB (CK-2) Troponin T NT-Pro-B Natriuret Pep Total Protein Albumin Triglycerides TSH Arterial Blood Glucose Arterial Blood Ionized Calcium Urine pH Urine WBC (Auto) Urine Creatinine 10/15/20 10/16/20 10/16/20 23:18 03:13 05:10 WBC RBC Hgb Hct RDW Lymph % (Auto) [place] % (Auto) Lymph # (Auto) [place] # (Auto) Seg Neutrophils % Lymphocytes % (Manual) Monocytes % (Manual) Seg Neutrophils # Seg Neutrophils # Man Lymphocytes # (Manual) Monocytes # (Manual) D-Dimer Heparin Anti-Xa Level ABG pH POC ABG pCO2 POC ABG pO2 ABG pO2 104.5 H ABG HCO3 35.1 H ABG O2 Saturation ABG Base Excess 9.5 H ABG Hemoglobin 7.9 L ABG Oxyhemoglobin ABG Sodium ABG Potassium ABG Chloride ABG Glucose VBG pH Oxyhemoglobin Carboxyhemoglobin Sodium Potassium 3.3 L Chloride Carbon Dioxide 33 H BUN 37 H Creatinine 1.4 H Glucose 148 H POC Glucose 135 H Lactic Acid Calcium Phosphorus Magnesium 2.40 H Total Bilirubin AST ALT Ammonia Lactate Dehydrogenase Total Creatine Kinase CK-MB (CK-2) Troponin T NT-Pro-B Natriuret Pep Total Protein Albumin Triglycerides TSH Arterial Blood Glucose Arterial Blood Ionized Calcium Urine pH Urine WBC (Auto) Urine Creatinine 10/16/20 10/16/20 10/16/20 06:36 11:08 17:07 WBC RBC Hgb Hct RDW Lymph % (Auto) [place] % (Auto) Lymph # (Auto) [place] # (Auto) Seg Neutrophils % Lymphocytes % (Manual) Monocytes % (Manual) Seg Neutrophils # Seg Neutrophils # Man Lymphocytes # (Manual) Monocytes # (Manual) D-Dimer Heparin Anti-Xa Level ABG pH POC ABG pCO2 POC ABG pO2 ABG pO2 ABG HCO3 ABG O2 Saturation ABG Base Excess ABG Hemoglobin ABG Oxyhemoglobin ABG Sodium ABG Potassium ABG Chloride ABG Glucose VBG pH Oxyhemoglobin Carboxyhemoglobin Sodium Potassium Chloride Carbon Dioxide BUN Creatinine Glucose POC Glucose 150 H 111 H 132 H Lactic Acid Calcium Phosphorus Magnesium Total Bilirubin AST ALT Ammonia Lactate Dehydrogenase Total Creatine Kinase CK-MB (CK-2) Troponin T NT-Pro-B Natriuret Pep Total Protein Albumin Triglycerides TSH Arterial Blood Glucose Arterial Blood Ionized Calcium Urine pH Urine WBC (Auto) Urine Creatinine 10/16/20 10/17/20 10/17/20 23:38 03:32 03:32 WBC RBC Hgb Hct RDW Lymph % (Auto) [place] % (Auto) Lymph # (Auto) [place] # (Auto) Seg Neutrophils % Lymphocytes % (Manual) Monocytes % (Manual) Seg Neutrophils # Seg Neutrophils # Man Lymphocytes # (Manual) Monocytes # (Manual) D-Dimer Heparin Anti-Xa Level ABG pH POC ABG pCO2 POC ABG pO2 ABG pO2 ABG HCO3 ABG O2 Saturation ABG Base Excess ABG Hemoglobin ABG Oxyhemoglobin ABG Sodium ABG Potassium ABG Chloride ABG Glucose VBG pH Oxyhemoglobin Carboxyhemoglobin Sodium 146 H Potassium Chloride Carbon Dioxide 32 H BUN 57 H Creatinine 2.4 H D Glucose 124 H POC Glucose 117 H Lactic Acid Calcium Phosphorus 5.20 H D Magnesium Total Bilirubin AST ALT Ammonia Lactate Dehydrogenase Total Creatine Kinase CK-MB (CK-2) Troponin T NT-Pro-B Natriuret Pep Total Protein Albumin Triglycerides TSH Arterial Blood Glucose Arterial Blood Ionized Calcium Urine pH Urine WBC (Auto) Urine Creatinine 10/17/20 10/17/20 10/18/20 05:10 17:33 00:13 WBC RBC Hgb Hct RDW Lymph % (Auto) [place] % (Auto) Lymph # (Auto) [place] # (Auto) Seg Neutrophils % Lymphocytes % (Manual) Monocytes % (Manual) Seg Neutrophils # Seg Neutrophils # Man Lymphocytes # (Manual) Monocytes # (Manual) D-Dimer Heparin Anti-Xa Level ABG pH POC ABG pCO2 POC ABG pO2 ABG pO2 ABG HCO3 ABG O2 Saturation ABG Base Excess ABG Hemoglobin ABG Oxyhemoglobin ABG Sodium ABG Potassium ABG Chloride ABG Glucose VBG pH Oxyhemoglobin Carboxyhemoglobin Sodium Potassium Chloride Carbon Dioxide BUN Creatinine Glucose POC Glucose 122 H 121 H 23 L Lactic Acid Calcium Phosphorus Magnesium Total Bilirubin AST ALT Ammonia Lactate Dehydrogenase Total Creatine Kinase CK-MB (CK-2) Troponin T NT-Pro-B Natriuret Pep Total Protein Albumin Triglycerides TSH Arterial Blood Glucose Arterial Blood Ionized Calcium Urine pH Urine WBC (Auto) Urine Creatinine 10/18/20 10/18/20 10/18/20 00:16 03:27 03:27 WBC RBC Hgb 11.7 L Hct RDW Lymph % (Auto) [place] % (Auto) Lymph # (Auto) [place] # (Auto) Seg Neutrophils % Lymphocytes % (Manual) Monocytes % (Manual) Seg Neutrophils # Seg Neutrophils # Man Lymphocytes # (Manual) Monocytes # (Manual) D-Dimer Heparin Anti-Xa Level ABG pH POC ABG pCO2 POC ABG pO2 ABG pO2 ABG HCO3 ABG O2 Saturation ABG Base Excess ABG Hemoglobin ABG Oxyhemoglobin ABG Sodium ABG Potassium ABG Chloride ABG Glucose VBG pH Oxyhemoglobin Carboxyhemoglobin Sodium Potassium Chloride 97.6 L Carbon Dioxide BUN 90 H Creatinine 3.3 H Glucose 146 H POC Glucose 134 H Lactic Acid Calcium Phosphorus Magnesium Total Bilirubin 1.70 H AST ALT Ammonia Lactate Dehydrogenase Total Creatine Kinase CK-MB (CK-2) Troponin T NT-Pro-B Natriuret Pep Total Protein Albumin 3.1 L Triglycerides TSH Arterial Blood Glucose Arterial Blood Ionized Calcium Urine pH Urine WBC (Auto) Urine Creatinine 10/18/20 10/18/20 10/18/20 05:09 11:19 17:15 WBC RBC Hgb Hct RDW Lymph % (Auto) [place] % (Auto) Lymph # (Auto) [place] # (Auto) Seg Neutrophils % Lymphocytes % (Manual) Monocytes % (Manual) Seg Neutrophils # Seg Neutrophils # Man Lymphocytes # (Manual) Monocytes # (Manual) D-Dimer Heparin Anti-Xa Level ABG pH POC ABG pCO2 POC ABG pO2 ABG pO2 ABG HCO3 ABG O2 Saturation ABG Base Excess ABG Hemoglobin ABG Oxyhemoglobin ABG Sodium ABG Potassium ABG Chloride ABG Glucose VBG pH Oxyhemoglobin Carboxyhemoglobin Sodium Potassium Chloride Carbon Dioxide BUN Creatinine Glucose POC Glucose 144 H 145 H 151 H Lactic Acid Calcium Phosphorus Magnesium Total Bilirubin AST ALT Ammonia Lactate Dehydrogenase Total Creatine Kinase CK-MB (CK-2) Troponin T NT-Pro-B Natriuret Pep Total Protein Albumin Triglycerides TSH Arterial Blood Glucose Arterial Blood Ionized Calcium Urine pH Urine WBC (Auto) Urine Creatinine 10/18/20 10/18/20 10/19/20 23:16 Unknown 04:55 WBC RBC Hgb Hct RDW Lymph % (Auto) [place] % (Auto) Lymph # (Auto) [place] # (Auto) Seg Neutrophils % Lymphocytes % (Manual) Monocytes % (Manual) Seg Neutrophils # Seg Neutrophils # Man Lymphocytes # (Manual) Monocytes # (Manual) D-Dimer Heparin Anti-Xa Level ABG pH POC ABG pCO2 POC ABG pO2 ABG pO2 ABG HCO3 ABG O2 Saturation ABG Base Excess ABG Hemoglobin ABG Oxyhemoglobin ABG Sodium ABG Potassium ABG Chloride ABG Glucose VBG pH Oxyhemoglobin Carboxyhemoglobin Sodium Potassium Chloride Carbon Dioxide BUN 104 H Creatinine 3.1 H Glucose 139 H POC Glucose 123 H Lactic Acid Calcium Phosphorus Magnesium Total Bilirubin AST ALT Ammonia Lactate Dehydrogenase Total Creatine Kinase CK-MB (CK-2) Troponin T NT-Pro-B Natriuret Pep Total Protein Albumin Triglycerides TSH Arterial Blood Glucose Arterial Blood Ionized Calcium Urine pH Urine WBC (Auto) 115.0 H Urine Creatinine 10/19/20 10/19/20 10/19/20 04:55 11:35 13:14 WBC 15.1 H RBC Hgb 11.1 L Hct 34.4 L RDW Lymph % (Auto) 4.2 L [place] % (Auto) 11.9 H Lymph # (Auto) 0.6 L [place] # (Auto) 1.8 H Seg Neutrophils % 82.0 H Lymphocytes % (Manual) Monocytes % (Manual) Seg Neutrophils # 12.4 H Seg Neutrophils # Man Lymphocytes # (Manual) Monocytes # (Manual) D-Dimer Heparin Anti-Xa Level ABG pH POC ABG pCO2 POC ABG pO2 ABG pO2 ABG HCO3 ABG O2 Saturation ABG Base Excess ABG Hemoglobin ABG Oxyhemoglobin ABG Sodium ABG Potassium ABG Chloride ABG Glucose VBG pH Oxyhemoglobin Carboxyhemoglobin Sodium Potassium Chloride Carbon Dioxide BUN Creatinine Glucose POC Glucose 136 H Lactic Acid Calcium Phosphorus Magnesium Total Bilirubin AST ALT Ammonia Lactate Dehydrogenase Total Creatine Kinase CK-MB (CK-2) Troponin T NT-Pro-B Natriuret Pep Total Protein Albumin Triglycerides TSH Arterial Blood Glucose Arterial Blood Ionized Calcium Urine pH Urine WBC (Auto) Urine Creatinine 93.7 H 10/19/20 10/19/20 10/20/20 17:53 23:39 04:30 WBC RBC Hgb Hct RDW Lymph % (Auto) [place] % (Auto) Lymph # (Auto) [place] # (Auto) Seg Neutrophils % Lymphocytes % (Manual) Monocytes % (Manual) Seg Neutrophils # Seg Neutrophils # Man Lymphocytes # (Manual) Monocytes # (Manual) D-Dimer Heparin Anti-Xa Level ABG pH POC ABG pCO2 POC ABG pO2 ABG pO2 ABG HCO3 ABG O2 Saturation ABG Base Excess ABG Hemoglobin ABG Oxyhemoglobin ABG Sodium ABG Potassium ABG Chloride ABG Glucose VBG pH Oxyhemoglobin Carboxyhemoglobin Sodium Potassium Chloride Carbon Dioxide BUN 104 H Creatinine 2.8 H Glucose 151 H POC Glucose 137 H 133 H Lactic Acid Calcium Phosphorus Magnesium Total Bilirubin AST ALT Ammonia Lactate Dehydrogenase Total Creatine Kinase CK-MB (CK-2) Troponin T NT-Pro-B Natriuret Pep Total Protein Albumin Triglycerides TSH Arterial Blood Glucose Arterial Blood Ionized Calcium Urine pH Urine WBC (Auto) Urine Creatinine 10/20/20 10/20/20 10/20/20 04:30 05:38 11:34 WBC 17.9 H RBC Hgb 11.7 L Hct RDW Lymph % (Auto) [place] % (Auto) Lymph # (Auto) [place] # (Auto) Seg Neutrophils % Lymphocytes % (Manual) Monocytes % (Manual) Seg Neutrophils # Seg Neutrophils # Man Lymphocytes # (Manual) Monocytes # (Manual) D-Dimer Heparin Anti-Xa Level ABG pH POC ABG pCO2 POC ABG pO2 ABG pO2 ABG HCO3 ABG O2 Saturation ABG Base Excess ABG Hemoglobin ABG Oxyhemoglobin ABG Sodium ABG Potassium ABG Chloride ABG Glucose VBG pH Oxyhemoglobin Carboxyhemoglobin Sodium Potassium Chloride Carbon Dioxide BUN Creatinine Glucose POC Glucose 164 H 148 H Lactic Acid Calcium Phosphorus Magnesium Total Bilirubin AST ALT Ammonia Lactate Dehydrogenase Total Creatine Kinase CK-MB (CK-2) Troponin T NT-Pro-B Natriuret Pep Total Protein Albumin Triglycerides TSH Arterial Blood Glucose Arterial Blood Ionized Calcium Urine pH Urine WBC (Auto) Urine Creatinine 10/20/20 10/20/20 10/20/20 17:40 20:20 23:29 WBC RBC Hgb Hct RDW Lymph % (Auto) [place] % (Auto) Lymph # (Auto) [place] # (Auto) Seg Neutrophils % Lymphocytes % (Manual) Monocytes % (Manual) Seg Neutrophils # Seg Neutrophils # Man Lymphocytes # (Manual) Monocytes # (Manual) D-Dimer Heparin Anti-Xa Level ABG pH 7.292 L POC ABG pCO2 68.5 H POC ABG pO2 ABG pO2 ABG HCO3 ABG O2 Saturation ABG Base Excess ABG Hemoglobin 11.6 L ABG Oxyhemoglobin ABG Sodium ABG Potassium ABG Chloride ABG Glucose 145 H VBG pH Oxyhemoglobin Carboxyhemoglobin Sodium Potassium Chloride Carbon Dioxide BUN Creatinine Glucose POC Glucose 130 H 136 H Lactic Acid Calcium Phosphorus Magnesium Total Bilirubin AST ALT Ammonia Lactate Dehydrogenase Total Creatine Kinase CK-MB (CK-2) Troponin T NT-Pro-B Natriuret Pep Total Protein Albumin Triglycerides TSH Arterial Blood Glucose 145 H Arterial Blood Ionized Calcium Urine pH Urine WBC (Auto) Urine Creatinine 10/21/20 10/21/20 10/21/20 04:20 06:26 06:30 WBC RBC Hgb Hct RDW Lymph % (Auto) [place] % (Auto) Lymph # (Auto) [place] # (Auto) Seg Neutrophils % Lymphocytes % (Manual) Monocytes % (Manual) Seg Neutrophils # Seg Neutrophils # Man Lymphocytes # (Manual) Monocytes # (Manual) D-Dimer Heparin Anti-Xa Level ABG pH 7.262 L POC ABG pCO2 72.4 H POC ABG pO2 81.6 L ABG pO2 ABG HCO3 ABG O2 Saturation ABG Base Excess ABG Hemoglobin 11.6 L ABG Oxyhemoglobin ABG Sodium ABG Potassium ABG Chloride ABG Glucose 140 H VBG pH Oxyhemoglobin Carboxyhemoglobin Sodium Potassium Chloride Carbon Dioxide 33 H BUN 104 H Creatinine 2.9 H Glucose 153 H POC Glucose 128 H Lactic Acid Calcium Phosphorus Magnesium Total Bilirubin AST ALT Ammonia Lactate Dehydrogenase Total Creatine Kinase CK-MB (CK-2) Troponin T NT-Pro-B Natriuret Pep Total Protein Albumin Triglycerides TSH Arterial Blood Glucose 140 H Arterial Blood Ionized Calcium Urine pH Urine WBC (Auto) Urine Creatinine 10/21/20 10/21/20 10/21/20 06:30 11:24 17:21 WBC 13.3 H RBC Hgb 10.7 L Hct 32.7 L RDW Lymph % (Auto) [place] % (Auto) Lymph # (Auto) [place] # (Auto) Seg Neutrophils % Lymphocytes % (Manual) Monocytes % (Manual) Seg Neutrophils # Seg Neutrophils # Man Lymphocytes # (Manual) Monocytes # (Manual) D-Dimer Heparin Anti-Xa Level ABG pH POC ABG pCO2 POC ABG pO2 ABG pO2 ABG HCO3 ABG O2 Saturation ABG Base Excess ABG Hemoglobin ABG Oxyhemoglobin ABG Sodium ABG Potassium ABG Chloride ABG Glucose VBG pH Oxyhemoglobin Carboxyhemoglobin Sodium Potassium Chloride Carbon Dioxide BUN Creatinine Glucose POC Glucose 178 H 138 H Lactic Acid Calcium Phosphorus Magnesium Total Bilirubin AST ALT Ammonia Lactate Dehydrogenase Total Creatine Kinase CK-MB (CK-2) Troponin T NT-Pro-B Natriuret Pep Total Protein Albumin Triglycerides TSH Arterial Blood Glucose Arterial Blood Ionized Calcium Urine pH Urine WBC (Auto) Urine Creatinine 10/22/20 10/22/20 10/22/20 00:05 06:15 06:18 WBC RBC Hgb Hct RDW Lymph % (Auto) [place] % (Auto) Lymph # (Auto) [place] # (Auto) Seg Neutrophils % Lymphocytes % (Manual) Monocytes % (Manual) Seg Neutrophils # Seg Neutrophils # Man Lymphocytes # (Manual) Monocytes # (Manual) D-Dimer Heparin Anti-Xa Level ABG pH POC ABG pCO2 POC ABG pO2 ABG pO2 ABG HCO3 ABG O2 Saturation ABG Base Excess ABG Hemoglobin ABG Oxyhemoglobin ABG Sodium ABG Potassium ABG Chloride ABG Glucose VBG pH Oxyhemoglobin Carboxyhemoglobin Sodium Potassium Chloride Carbon Dioxide 32 H BUN 103 H Creatinine 2.7 H Glucose 151 H POC Glucose 135 H 137 H Lactic Acid Calcium Phosphorus Magnesium Total Bilirubin AST ALT Ammonia Lactate Dehydrogenase Total Creatine Kinase CK-MB (CK-2) Troponin T NT-Pro-B Natriuret Pep Total Protein Albumin Triglycerides TSH Arterial Blood Glucose Arterial Blood Ionized Calcium Urine pH Urine WBC (Auto) Urine Creatinine Allied health notes reviewed: RT
--- NOTE | 2020-10-22 11:09 | Progress Note ---
Assessment and Plan Cardiopulmonary arrest/Pulseless after COVID vaccination Severe Sepsis Acute respiratory failure/Bilateral Pneumonia/Aspiration/+MRSA aspirate MOE (acute kidney injury) Persistent Fevers Leukocytosis Hypoxic encephalopathy/?Seizure NSTEMI Type II Hypertension History of Asthma Obesity ECHO 10/10/20: EF 55-60%, mod LVH, grade I diastolic dysfunction Tele: sinus 62 bpm BP stable, agree with clonidine patch/hydralazine 50 TID, metoprolol 100 TID currently in sinus rhythm, amiodarone discontinued Subjective Date of service: 10/22/20 Principal diagnosis: Cardiac arrest; Septic Shock; Ac. hypoxemic & hypercapnic resp failure; MOE Interval history: Pt intubated and sedated Objective Vital Signs Temp Pulse Pulse Resp BP Pulse Ox 10/22/20 08:30 69 16 120/64 98 10/22/20 08:13 66 111/51 10/22/20 08:00 67 16 111/51 97 10/22/20 07:47 98.2 F 10/22/20 07:30 68 16 111/57 98 10/22/20 07:29 69 111/57 98 10/22/20 07:00 69 16 120/59 98 10/22/20 06:31 68 16 139/73 99 10/22/20 06:00 68 16 107/55 98 10/22/20 05:30 70 16 115/51 97 10/22/20 05:00 72 9 L 111/56 96 10/22/20 04:30 69 10 L 122/60 97 10/22/20 04:01 70 12 130/65 97 10/22/20 04:00 99.3 F 71 96 10/22/20 03:30 70 9 L 119/54 96 10/22/20 03:00 71 9 L 124/48 97 10/22/20 02:30 71 10 L 124/68 96 10/22/20 02:00 71 12 115/58 97 10/22/20 01:30 72 9 L 113/55 96 10/22/20 01:00 71 11 L 110/61 97 10/22/20 00:30 73 115/60 98 10/22/20 00:10 72 146/77 97 10/22/20 00:00 100.3 F H 76 126/75 97 10/21/20 23:30 81 17 138/66 97 10/21/20 23:00 74 10 L 146/86 98 10/21/20 22:30 76 10 L 141/74 98 10/21/20 22:16 76 10 L 141/74 98 10/21/20 22:00 79 10 L 140/65 100 10/21/20 21:30 82 10 L 98/65 98 10/21/20 21:00 89 13 124/78 96 10/21/20 20:49 87 124/78 10/21/20 20:30 89 13 161/91 96 10/21/20 20:22 93 H 161/93 96 10/21/20 20:00 100.3 F H 91 H 95 H 13 160/76 94 10/21/20 19:30 92 H 20 149/71 96 10/21/20 19:00 105 H 13 168/61 95 10/21/20 18:30 101 H 14 160/91 96 10/21/20 18:00 94 H 15 162/96 96 10/21/20 17:30 96 H 16 157/88 96 10/21/20 17:00 103 H 14 201/147 96 10/21/20 16:30 102 H 21 179/131 98 10/21/20 16:00 99.6 F 104 H 82 20 155/93 98 10/21/20 15:30 102 H 17 155/93 98 10/21/20 15:26 95 H 155/93 97 10/21/20 15:00 97 H 17 217/124 98 10/21/20 14:30 100 H 20 183/127 98 10/21/20 14:00 97 H 20 180/113 98 10/21/20 13:30 88 20 98 10/21/20 13:00 99 H 21 175/106 97 10/21/20 12:30 96 H 16 166/107 97 10/21/20 12:00 98.7 F 96 H 82 17 167/88 97 10/21/20 11:53 96 H 166/110 97 10/21/20 11:30 97 H 18 166/110 97 - Physical Examination General: Other (intubated) HEENT: Positive: Normocephaly Neck: Positive: neck supple, trachea midline Cardiac: Positive: Reg Rate and Rhythm Lungs: Positive: Other (course breath sounds) Neuro: Positive: Other (intubated) Abdomen: Positive: Soft, Active Bowel Sounds Skin: Negative: Rash Extremities: Present: lower extr. pulses. Absent: edema - Labs and Meds Comprehensive Metabolic Panel 10/22/20 Range/Units 06:15 Sodium 144 (137-145) mmol/L Potassium 4.0 (3.6-5.0) mmol/L Chloride 104.5 (98-107) mmol/L Carbon Dioxide 32 H (22-30) mmol/L BUN 103 H (9-20) mg/dL Creatinine 2.7 H (0.8-1.3) mg/dL Glucose 151 H (75-100) mg/dL Calcium 9.0 (8.4-10.2) mg/dL - Imaging and Cardiology EKG: report reviewed, image reviewed Echo: report reviewed (10/10/2020 - mod LVH, EF 55-60%, mild diastolic dysfunction) - EKG Sinus rhythms and dysrhythmias: sinus rhythm Repolarization changes or abnormalities: ST suggestive of injury, Q-T interval prolongation - Allied health notes Allied health notes reviewed: RT
--- NOTE | 2020-10-22 12:08 | XRay Report ---
CHEST 1 VIEW 1137 INDICATION / CLINICAL INFORMATION: resp failure COMPARISON: 10/20/2020 FINDINGS: SUPPORT DEVICES: PICC appears in a slightly more proximal position of the tip is still in the area of the upper superior vena cava. Nasogastric tube and endotracheal tube are not significantly changed. HEART / MEDIASTINUM: Stable LUNGS / PLEURA: Slightly congested appearance is noted. Mild bibasilar atelectatic changes continue, more on the right. No pneumothorax. ADDITIONAL FINDINGS: No significant additional findings. Signer Name: Sreedhar Deleon MD Signed: 10/22/2020 12:04 PM Workstation Name: [id number]
--- NOTE | 2020-10-22 12:55 | Progress Note ---
Assessment and Plan 1. Acute kidney injury: Vasomotor MOE in the setting of Cardiac arrest and shock. Renal US negative for hydro. Monitor renal function. BUN and Creatinine leveled off. Multiple bladder scan showed no retention. Avoid nephrotoxic agents. Meds dosage based on GFR. Monitor for [employer] needs. 2. FEN: Volume overload, improved, monitor. Hypernatremia, sodium level is better, monitor. On Tube feeding. Monitor lytes and volume status. 3. Acute hypoxic respiratory failure, POA: 2/2 PNA and CHF. COVID test negative. Intubated on vent. 4. Sepsis, POA: 2/2 PNA. Abx. 5. NSTEMI type II: Post cardiac arrest EKG showed no acute ischemic changes. Followed by Cards. 6. Acute CHF: Echo showed Normal EF and mild DD. 7. S/p Cardiac arrest. 8. A.fib / A.flutter: Metoprolol. 9. Anoxic encephalopathy: Followed by Neuro. 10. GI bleed: Seen by GI. 11. Elevated Transaminases: Improved. 12. HTN: Monitor. Adjust meds as needed. Subjective: Patient was seen and examined at the bedside. Objective: General appearance: well-developed, appears stated age, intubated, on vent HEENT: ATNC, pupils equal Neck: trachea midline Respiratory: ctab Heart: regular, S1S2, no murmur Gastrointestinal: soft, normoactive bowel sounds, not tender Integumentary: no rash, warm and dry Ext: trace extremity edema Neurologic: not responding Musculoskeletal: no obvious deformity Subjective Date of service: 10/22/20 Principal diagnosis: Cardiac arrest; Septic Shock; Ac. hypoxemic & hypercapnic resp failure; MOE Objective - Vital Signs Vital signs: Vital Signs - 12hr 10/22/20 10/22/20 10/22/20 01:00 01:30 02:00 Temperature Pulse Rate 71 72 71 Respiratory 11 L 9 L 12 Rate Blood Pressure 110/61 113/55 115/58 O2 Sat by Pulse 97 96 97 Oximetry 10/22/20 10/22/20 10/22/20 02:30 03:00 03:30 Temperature Pulse Rate 71 71 70 Respiratory 10 L 9 L 9 L Rate Blood Pressure 124/68 124/48 119/54 O2 Sat by Pulse 96 97 96 Oximetry 10/22/20 10/22/20 10/22/20 04:00 04:01 04:30 Temperature 99.3 F Pulse Rate 71 70 69 Respiratory 12 10 L Rate Blood Pressure 130/65 122/60 O2 Sat by Pulse 96 97 97 Oximetry 10/22/20 10/22/20 10/22/20 05:00 05:30 06:00 Temperature Pulse Rate 72 70 68 Respiratory 9 L 16 16 Rate Blood Pressure 111/56 115/51 107/55 O2 Sat by Pulse 96 97 98 Oximetry 10/22/20 10/22/20 10/22/20 06:31 07:00 07:29 Temperature Pulse Rate 68 69 69 Respiratory 16 16 Rate Blood Pressure 139/73 120/59 111/57 O2 Sat by Pulse 99 98 98 Oximetry 10/22/20 10/22/20 10/22/20 07:30 07:47 08:00 Temperature 98.2 F Pulse Rate 68 67 Respiratory 16 16 Rate Blood Pressure 111/57 111/51 O2 Sat by Pulse 98 97 Oximetry 10/22/20 10/22/20 10/22/20 08:13 08:30 11:14 Temperature Pulse Rate 66 69 63 Respiratory 16 Rate Blood Pressure 111/51 120/64 120/63 O2 Sat by Pulse 98 100 Oximetry 10/22/20 12:09 Temperature 98.9 F Pulse Rate Respiratory Rate Blood Pressure O2 Sat by Pulse Oximetry - Lab 10/21/20 06:30 10/22/20 06:15 Most recent lab results ABG pH 7.262 (7.320-7.450) L 10/21/20 04:20 ABG pCO2 55.5 mm Hg 10/16/20 05:10 ABG pO2 104.5 mm Hg (80.0-90.0) H 10/16/20 05:10 ABG HCO3 35.1 mmol/L (20.0-26.0) H 10/16/20 05:10 ABG O2 Saturation 95.2 (0-100) 10/21/20 04:20 Calcium 9.0 mg/dL (8.4-10.2) 10/22/20 06:15 Phosphorus 5.20 mg/dL (2.5-4.5) H D 10/17/20 03:32 Magnesium 2.30 mg/dL (1.7-2.3) 10/17/20 03:32 Urine Creatinine 93.7 mg/dL (0.1-20.0) H 10/19/20 13:14 Urine Sodium 25 mmol/L 10/19/20 13:14 Medications & Allergies - Medications Allergies/Adverse Reactions: Allergies No Known Allergies Allergy (Unverified 07/06/13 15:19) Home Medications: Home Medications Medication Instructions Recorded Confirmed Last Taken Type Colchicine [Colcrys] QDAY 10/21/20 Unknown History Eplerenone [Inspra] 50 mg PO 10/21/20 Unknown History HYDROcodone/APAP 5-325 [[place] 1 each PO Q8HR PRN 10/21/20 10/21/20 Unknown History 5/325] Leflunomide [Arava] 20 mg PO QDAY 10/21/20 10/21/20 3 Weeks Ago History ~09/30/20 20 mg Rosuvastatin (Nf) [Crestor] 20 mg PO QHS 10/21/20 10/21/20 3 Weeks Ago History ~09/30/20 20 mg Torsemide [Demadex] 20 mg PO 10/21/20 Unknown History allopurinoL [Zyloprim] QDAY 10/21/20 Unknown History amLODIPine 5 mg PO BID 10/21/20 10/21/20 3 Weeks Ago History ~09/30/20 5 mg carvediloL [Coreg] 25 mg PO QDAY 10/21/20 10/21/20 3 Weeks Ago History ~09/30/20 25 mg metFORMIN [Glucophage] 500 mg PO QDAY 10/21/20 10/21/20 Unknown History Active Medications: Generic Name Dose Route Start Last Admin Trade Name Freq PRN Reason Stop Dose Admin Acetaminophen 650 mg 10/10/20 21:51 10/20/20 09:11 Acetaminophen 325 Mg Tab PO 650 mg Q4H PRN Administration Pain MILD(1-3)/Fever >100.5/[place] Acetaminophen 650 mg 10/11/20 11:24 10/17/20 17:16 Acetaminophen 650 Mg Rect Supp [place] 650 mg Q6H PRN Administration Fever >101 Albuterol 2.5 mg 10/11/20 13:12 Albuterol 2.5 Mg/3 Ml Nebu IH Q6HRT PRN Shortness Of Breath Lipase/Protease/Amylase 1 each 10/10/20 22:18 Lipase 10,500/Protease 25,000/Amylase 43,750 (Units) Dr Santana FEEDTUBE PRN PRN For Clogged Feeding Tube Clonidine HCl 0.3 mg 10/14/20 15:00 10/21/20 14:05 Clonidine Tts 0.3 Mg/24 Hr Patch TD 0.3 mg Fr PEPITO Administration Docusate Sodium 100 mg 10/16/20 22:00 10/22/20 09:39 Docusate Sodium 100 Mg/10 Ml Oral Liqd PO 100 mg BID PEPITO Administration Fentanyl 50 mcg 10/16/20 14:10 10/20/20 07:43 Fentanyl 100 Mcg/2 Ml Inj IV 50 mcg Q10MIN PRN Administration ANALGESIA Fluticasone Propionate 50 mcg 10/18/20 14:00 10/22/20 09:43 Fluticasone Propionate Nasal [place] 16 Gm NS 50 mcg BID PEPITO Administration Glycopyrrolate 2 mg 10/19/20 14:00 10/22/20 09:39 Glycopyrrolate 1 Mg Tab PO 2 mg Q6H PEPITO Administration Heparin Sodium (Porcine) 5,000 unit 10/11/20 22:00 10/22/20 09:38 Heparin 5,000 Unit/1 Ml Vial SUB-Q 5,000 unit Q12HR PEPITO Administration Hydralazine HCl 5 mg 10/15/20 20:25 10/21/20 16:39 Hydralazine 20 Mg/1 Ml Inj IV 5 mg Q6H PRN Administration Hypertension Hydralazine HCl 50 mg 10/19/20 14:00 10/22/20 06:04 Hydralazine 25 Mg Tab PO 50 mg Q8HR PEPITO Administration Hydromorphone HCl 0.5 mg 10/10/20 21:51 10/15/20 14:45 Hydromorphone 1 Mg/1 Ml Inj IV 0.5 mg Q3H PRN Administration Pain , Severe (7-10) Hydrophilic Ointment 1 applic 10/10/20 10:34 Lip Therapy Vaseline TP Q2HR PRN Dry Lips Propofol 1,000 mg in 100 mls @ 4.23 mls/hr 10/10/20 12:00 10/17/20 00:36 Diprivan 10 Mg/Ml IV 0 mcg/kg/min TITR PEPITO 0 mls/hr Titration Protocol 5 MCG/KG/MIN Nitroglycerin/Dextrose 50 mg in 250 mls @ 3 mls/hr 10/10/20 13:00 10/10/20 13:17 Tridil Drip 50mg/250ml IV 0 mcg/min TITR PEPITO 0 mls/hr Titration Protocol 10 MCG/MIN Norepinephrine 8 mg/ Sodium 250 mls @ 3.75 mls/hr 10/10/20 14:00 10/10/20 22:15 Chloride IV 0 mcg/min TITRATE PEPITO 0 mls/hr Titration Protocol 2 MCG/MIN Levetiracetam 500 mg/ Dextrose 105 mls @ 400 mls/hr 10/13/20 18:00 10/22/20 06:03 IV 400 mls/hr Q12H PEPITO Administration Fentanyl Citrate 2,000 mcg in 100 mls @ 6.175 mls/hr 10/16/20 15:00 10/22/20 08:42 Fentanyl Drip Premix IV 2 mcg/kg/hr TITR PEPITO 12.35 mls/hr Administration Protocol 1 MCG/KG/HR Linezolid 600 mg in 300 mls @ 300 mls/hr 10/20/20 12:00 10/21/20 21:26 Zyvox 600mg/300ml IV 10/29/20 22:59 300 mls/hr Q12HR PEPITO Administration Protocol Sodium Chloride 1,000 mls @ 75 mls/hr 10/20/20 14:00 10/21/20 16:40 Nacl 0.9% 1000 Ml IV 10/23/20 03:19 75 mls/hr DIRECT PEPITO Administration Metoclopramide HCl 10 mg 10/10/20 21:51 Metoclopramide 10 Mg/2 Ml Inj IV Q6H PRN Nausea And Vomiting Metoprolol Tartrate 100 mg 10/21/20 14:00 10/22/20 08:13 Metoprolol Tartrate 50 Mg Tab PO 100 mg TID PEPITO Administration Multi-Ingred Cream/Lotion/Oil/Oint 1 applic 10/10/20 10:34 Mineral Oil/Petrolatum, White Ophth Oint 3.5 Gm OU Q4HR PRN Dry Eye(s) Ondansetron HCl 4 mg 10/10/20 21:51 Ondansetron 4 Mg/2 Ml Inj IV Q3H PRN Nausea And Vomiting Pantoprazole Sodium 40 mg 10/12/20 22:00 10/22/20 09:39 Pantoprazole 40 Mg Inj IV 40 mg BID PEPITO Administration Polyethylene Glycol 17 gm 04/05/21 10:00 10/22/20 09:40 Polyethylene Glycol 3350 17 Gm Powder PO 17 gm QDAY PEPITO Administration Scopolamine 1 each 10/17/20 10:00 10/20/20 09:14 Scopolamine Transdermal Patch 72 Hr TD 1 each Q3D PEPITO Administration Simple Syrup 15 ml 10/10/20 22:18 Simple Syrup 15 Ml FEEDTUBE PRN PRN Hypoglycemia Simple Syrup 30 ml 10/10/20 22:18 Simple Syrup 15 Ml FEEDTUBE PRN PRN Hypoglycemia Sodium Bicarbonate 325 mg 10/10/20 22:18 Sodium Bicarbonate 325 Mg Tab FEEDTUBE PRN PRN For Clogged Feeding Tube Sodium Chloride 10 ml 10/10/20 22:00 10/22/20 09:42 Sodium Chloride 0.9% 10 Ml Flush Syringe IV 10 ml BID PEPITO Administration Sodium Chloride 10 ml 10/10/20 21:51 10/21/20 09:56 Sodium Chloride 0.9% 10 Ml Flush Syringe IV 10 ml PRN PRN Administration LINE FLUSH
[2020-10-23] MEDS: GLYCOPYRROLATE 1 MG TAB PO SCH ×4 (03:33→19:55)
[2020-10-23] MEDS: levETIRAcetam 500 MG in DEXTROSE 5% IN WATER 100 ML IV SCH ×2 (05:48→18:26)
[2020-10-23] MEDS: hydrALAZINE 25 MG TAB PO SCH ×3 (05:48→21:42)
[2020-10-23] MEDS: fentaNYL DRIP Premix 2,000 MCG/100 ML BAG IV SCH (06:14)
[2020-10-23 06:56] LABS: Calcium 9.6 mg/dL (8.4-10.2)
[2020-10-23] MEDS: hydrALAZINE 20 MG/1 ML INJ IV PRN (07:30)
[2020-10-23] MEDS: METOPROLOL TARTRATE 50 MG TAB PO SCH ×3 (07:48→19:55)
--- NOTE | 2020-10-23 09:29 | Progress Note ---
Assessment and Plan Assessment and plan: This is a 55-year-old male with hypertension, asthma, obesity in the emergency by presents the emergency department on 10/10 after receiving a Covid vaccine being found unresponsive in his car in the emergency room by with no pulse and ACLS protocol was initiated from his car to emergency room #21 where it was continued. Patient was intubated after ROSC was achieved and a central line was placed and the patient was initiated on pressors. In the emergency room patient seems to have seizure-like activity and then collapsed and was unresponsive with no palpable pulse and ACLS was again initiated patient with achievement of ROSC. Patient again coded with ACLS protocol in the CT room. Upon arrival to the ICU patient again coded and ROSC was achieved and he was placed on epinephrine, Lasix, heparin and sodium bicarbonate drip and sedated with propofol. An NG tube was placed, A-line was placed. Patient was admitted to the hospitalist service with consult to CCM, nephrology, infectious disease and cardiology. 10/11: Patient COVID-19 PCR is pending and he remains on mechanical ventilation, examination on assist control 400/30/12/0.95. Patient is scheduled for an echocardiogram and we will obtain bilateral lower extremity Doppler ultrasound given elevated D-dimer. Patient was supposed to have a CTA chest when he coded yesterday. We will begin trickle feeding. This morning patient was on a heparin drip and was noted to have bloody drainage from his NG tube. Heparin drip was discontinued. 10/12: Patient remains on propofol and Lasix drip at the time my examination and he is on assist control 400/25/12/0.60. Patient is hypokalemic this morning which was repleted. Nephrlogy discontinued Lasix drip and Diamox. Patient is hypertensive and has been started on hydralazine and beta-shital IV. He has been titrated off his vasopressors since yesterday. Vancomycin discontinued. Patient is currently on cefepime and azithromycin. 10/13: Sedation vacation attempted today and patient was not responsive to verbal or painful stimuli, does not track or focus or follow commands. This morning the patient has some respiratory alkalosis on ABG, hypernatremia and metabolic alkalosis on BMP. His kidney functions has improved slightly. Patient still has leukocytosis and infectious disease was like to continue antibiotic therapy. GI evaluated the patient yesterday and started the patient on PPI does not plan to scope at this time. At the time my examination patient assist-control 400/20/12/0.40 and sedated on propofol at 20. /: GI has recommended a CT abdomen since there is increased output from OG tube and an MRI brain without contrast has been ordered per neurology rec ommendations. EEG is pending and the patient has been started on Keppra per neurology.. Nutrition has been consulted for initiation of parenteral nutrition. Patient remains sedated with propofol and his hypernatremia, leukocytosis, acute kidney injury and metabolic alkalosis is improving. Patient has hypokalemia today which was repleted. At the time of my examination patient was on assist control 400/14/10/0.40 and CCM has dropped his rate to 12 and PEEP to 8. We have labs ordered for a.m. He was given a clonidine patch given persistent hypertension and he remains on D5 water per nephrology. 10/15: This morning patient was started to have a low-grade fever and he will continue antibiotic therapy per infectious disease. He will remove Tuttle catheter today and place a condom cath. Patient's renal function is worsening with a BUN/creatinine of 57/2.4 today and he has hyperphosphatemia at 5.2. This morning the time my examination patient is sedated on fentanyl and has TPN infusing. He is on assist control 400/12/8/0.35. Per GI we will start trial of tube feedings initiation has been reconsulted for orders. 10/18: Patient was febrile overnight and infectious disease has recultured (blood/sputum/right nostril culture) and sent in urinalysis. Cefepime was extended due to high fever and was started on vancomycin. Tube feeding is at goal and we will discontinue his parenteral nutrition. Patient is unable to obtain his MRI due to increased hypoxia and nasal secretions. He will be started on CPAP trials today. This time I examination patient was sedated on fentanyl and had PPN running at 42. His renal function tests have worsened and now has hyperchloremia. Hypernatremia has resolved. 10/19: Patient's T-max was 100.2 and he was pancultured yesterday, remains on an tibiotic therapy and still has copious drainage from his nostrils. Patient still has leukocytosis however his/creatinine improved slightly to 3.1 from 3.3. Patient's urinalysis from yesterday shows pyuria. Patient's tracheal aspirate from yesterday grew Staph aureus. Patient is on cefepime and vancomycin. 10/20: This morning at the time my examination patient was CPAP trial of 04/19 and his T-max was 100.9. Patient sedated on fentanyl at 2 just received IV push fentanyl for tachycardia. Today his creatinine is 2.8 from 3.1 yesterday. Infectious disease has stopped cefepime and vancomycin and started linezolid and MRSA PCR is pending. Today removed his NG tube and replaced it with OG tube. We will keep the patient normal saline at 75 mL's per hour for 3 L. Patient developed A. fib/a flutter overnight and cardiology has increased his Lopressor and IV amiodarone. We requested neurology evaluation today. 10/21: Cardiology we will increase Lopressor to 3 times daily and discontinue his amiodarone drip. Infectious disease would like a sinus CT when feasible however patient did have a moment of desatting earlier this week when we attempted MRI brain. And again yesterday when we attempted a "trial run" with positioning at bedside Patient is on linezolid for 10 days per ID. Sepsis Right-sided pneumonia MRSA in tracheal aspirate NSTEMI type II Acute heart failure Afib/Alutter Copious nasal drainage Leukocytosis Acute hypoxic respiratory failure Acute kidney injury Transaminitis HTN Obesity 10/22/20; patient was seen and evaluated this morning, patient had low-grade fever overnight. Patient is on Lopressor per cardiology recommendation. Patient did not follow commands, no improvement in mental status. Evaluated by neurology yesterday and neurology once MRI or CAT scan but cannot be done because patient desats when he lies flat. Patient is on linezolid per ID recommendation. Continue NG tube feeding. Continue with Keppra. Patient is on assist control with PEEP of 6. Management plan was discussed with his yesterday. 10/23/2020; patient is on Zyvox for positive MRSA from tracheal aspirate and nasal secretion culture. Patient's mentation did not improve and does not follow commands. He was reevaluated by neurology and recommend MRI once patient is able to tolerate. MRI could not be done, CT scan could not be done because the patient could not lie flat. Clinically patient looks like she has anoxic encephalopathy. Patient is on NG tube feeding and on mechanical ventilation. Patient is on Keppra. Management plan was discussed with his . The high probability of a clinically significant, sudden or life threatening deterioration of the [cardiovascular, respiratory] system(s) required my full and direct attention, intervention and personal management. The aggregate critical care time was [31] minutes. This time is in addition to time spent performing reported procedures but includes the following: [x] Data Review and interpretation [x] Patient assessment and monitoring of vital signs [x] Documentation [x] Medication orders and management History Interval history: Patient was seen and evaluated this morning Patient is intubated Patient does not follow commands, open his eyes spontaneous Hospitalist Physical - Physical exam Narrative exam: Intubated and on vent The patient appeared well nourished and normally developed. Vital signs as documented. Head exam is unremarkable. No scleral icterus . Neck is without jugular venous distension, thyromegaly, or carotid bruits. Lungs are clear to auscultation. Cardiac exam reveals regular rate and Rhythm. Abdominal exam reveals normal bowel sounds, nontender, no organomegaly. Extremities are nonedematous and both femoral and pedal pulses are normal. 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 Should be admitted Results - Labs CBC & Chem 7: 10/21/20 06:30 10/23/20 06:00 Labs: Laboratory Last Values WBC 13.3 K/mm3 (4.5-11.0) H 10/21/20 06:30 RBC 3.68 M/mm3 (3.65-5.03) 10/21/20 06:30 Hgb 10.7 gm/dl (11.8-15.2) L 10/21/20 06:30 Hct 32.7 % (35.5-45.6) L 10/21/20 06:30 MCV 89 fl (84-94) 10/21/20 06:30 MCH 29 pg (28-32) 10/21/20 06:30 MCHC 33 % (32-34) 10/21/20 06:30 RDW 14.6 % (13.2-15.2) 10/21/20 06:30 Plt Count 255 K/mm3 (140-440) 10/21/20 06:30 Lymph % (Auto) 4.2 % (13.4-35.0) L 10/19/20 04:55 [place] % (Auto) 11.9 % (0.0-7.3) H 10/19/20 04:55 Eos % (Auto) 1.6 % (0.0-4.3) 10/19/20 04:55 Baso % (Auto) 0.3 % (0.0-1.8) 10/19/20 04:55 Lymph # (Auto) 0.6 K/mm3 (1.2-5.4) L 10/19/20 04:55 [place] # (Auto) 1.8 K/mm3 (0.0-0.8) H 10/19/20 04:55 Eos # (Auto) 0.2 K/mm3 (0.0-0.4) 10/19/20 04:55 Baso # (Auto) 0.1 K/mm3 (0.0-0.1) 10/19/20 04:55 Add Manual Diff Complete 10/10/20 18:18 Total Counted 100 10/10/20 18:18 Seg Neutrophils % 82.0 % (40.0-70.0) H 10/19/20 04:55 Seg Neuts % (Manual) 60.0 % (40.0-70.0) 10/10/20 18:18 Band Neutrophils % 27.0 % 10/10/20 18:18 Lymphocytes % (Manual) 4.0 % (13.4-35.0) L 10/10/20 18:18 Monocytes % (Manual) 9.0 % (0.0-7.3) H 10/10/20 18:18 Eosinophils % (Manual) 4.0 % (0.0-4.3) 10/10/20 10:48 Metamyelocytes % 1.0 % 10/10/20 10:48 Nucleated RBC % Not Reportable 10/10/20 18:18 Seg Neutrophils # 12.4 K/mm3 (1.8-7.7) H 10/19/20 04:55 Seg Neutrophils # Man 13.8 K/mm3 (1.8-7.7) H 10/10/20 18:18 Band Neutrophils # 6.2 K/mm3 10/10/20 18:18 Lymphocytes # (Manual) 0.9 K/mm3 (1.2-5.4) L 10/10/20 18:18 Abs React Lymphs (Man) 0.0 K/mm3 10/10/20 18:18 Monocytes # (Manual) 2.1 K/mm3 (0.0-0.8) H 10/10/20 18:18 Eosinophils # (Manual) 0.0 K/mm3 (0.0-0.4) 10/10/20 18:18 Basophils # (Manual) 0.0 K/mm3 (0.0-0.1) 10/10/20 18:18 Metamyelocytes # 0.0 K/mm3 10/10/20 18:18 Myelocytes # 0.0 K/mm3 10/10/20 18:18 Promyelocytes # 0.0 K/mm3 10/10/20 18:18 Blast Cells # 0.0 K/mm3 10/10/20 18:18 WBC Morphology Not Reportable 10/10/20 18:18 Hypersegmented Neuts Not Reportable 10/10/20 18:18 Hyposegmented Neuts Not Reportable 10/10/20 18:18 Hypogranular Neuts Not Reportable 10/10/20 18:18 Smudge Cells Not Reportable 10/10/20 18:18 Toxic Granulation Not Reportable 10/10/20 18:18 Toxic Vacuolation Not Reportable 10/10/20 18:18 Dohle Bodies Not Reportable 10/10/20 18:18 Pelger-Huet Anomaly Not Reportable 10/10/20 18:18 Dionicio Rods Not Reportable 10/10/20 18:18 Platelet Estimate Consistent w auto 10/10/20 18:18 Clumped Platelets Not Reportable 10/10/20 18:18 Plt Clumps, EDTA Not Reportable 10/10/20 18:18 Large Platelets Rare 10/10/20 18:18 Giant Platelets Rare 10/10/20 18:18 Platelet Satelliting Not Reportable 10/10/20 18:18 Plt Morphology Comment Not Reportable 10/10/20 18:18 RBC Morphology Not Reportable 10/10/20 18:18 Dimorphic RBCs Not Reportable 10/10/20 18:18 Polychromasia Not Reportable 10/10/20 18:18 Hypochromasia Not Reportable 10/10/20 18:18 Poikilocytosis Not Reportable 10/10/20 18:18 Anisocytosis Not Reportable 10/10/20 18:18 Microcytosis Not Reportable 10/10/20 18:18 Macrocytosis Not Reportable 10/10/20 18:18 Spherocytes Not Reportable 10/10/20 18:18 Pappenheimer Bodies Not Reportable 10/10/20 18:18 Sickle Cells Not Reportable 10/10/20 18:18 Target Cells Not Reportable 10/10/20 18:18 Tear Drop Cells Not Reportable 10/10/20 18:18 Ovalocytes Not Reportable 10/10/20 18:18 Helmet Cells Not Reportable 10/10/20 18:18 Medley-Cash Bodies Not Reportable 10/10/20 18:18 [place] Rings Not Reportable 10/10/20 18:18 Adelfo Cells Not Reportable 10/10/20 18:18 Bite Cells Not Reportable 10/10/20 18:18 Crenated Cell Not Reportable 10/10/20 18:18 Elliptocytes Not Reportable 10/10/20 18:18 Acanthocytes (Spur) Not Reportable 10/10/20 18:18 Rouleaux Not Reportable 10/10/20 18:18 Hemoglobin C Crystals Not Reportable 10/10/20 18:18 Schistocytes Not Reportable 10/10/20 18:18 Malaria parasites Not Reportable 10/10/20 18:18 Mauricio Bodies Not Reportable 10/10/20 18:18 Hem Pathologist Commnt No 10/10/20 18:18 PT 13.8 Sec. (12.2-14.9) 10/10/20 18:18 INR 1.07 (0.87-1.13) 10/10/20 18:18 APTT 26.9 Sec. (24.2-36.6) 10/10/20 18:18 D-Dimer 679.5 ng/mlDDU (0-234) H 10/10/20 10:48 Heparin Anti-Xa Level 0.22 U.I./ml (0.3-0.7) L 10/11/20 08:35 ABG pH 7.334 (7.320-7.450) 10/23/20 05:11 POC ABG pCO2 63.6 mmHg (32.0-48.0) H 10/23/20 05:11 ABG pCO2 55.5 mm Hg 10/16/20 05:10 POC ABG pO2 81.2 mmHg (83-108) L 10/23/20 05:11 ABG pO2 104.5 mm Hg (80.0-90.0) H 10/16/20 05:10 POC ABG HCO3 33.1 10/23/20 05:11 ABG HCO3 35.1 mmol/L (20.0-26.0) H 10/16/20 05:10 ABG O2 Saturation 96.0 (0-100) 10/23/20 05:11 ABG O2 Content 10.8 (0.0-44) 10/16/20 05:10 POC ABG Base Excess 5.8 10/23/20 05:11 ABG Base Excess 9.5 mmol/L (-2.0-3.0) H 10/16/20 05:10 ABG Hemoglobin 10.6 (12.0-17.5) L 10/23/20 05:11 ABG Oxyhemoglobin 96.8 (94-98) 10/22/20 11:34 ABG Carboxyhemoglobin 1.9 % (0.0-5.0) 10/16/20 05:10 ABG Methemoglobin 0.1 (0.0-1.5) 10/22/20 11:34 ABG Sodium 143.6 mmol/L (136.0-145.0) 10/23/20 05:11 ABG Potassium 3.7 mmol/L (3.40-4.50) 10/23/20 05:11 ABG Chloride 109.0 mmol/L (98-107) H 10/23/20 05:11 ABG Glucose 149 mg/dL (65-95) H 10/23/20 05:11 VBG pH 6.870 (7.320-7.420) L* 10/10/20 10:48 Oxyhemoglobin 95.3 % (95.0-99.0) 10/16/20 05:10 Carboxyhemoglobin 0.7 (0.5-1.5) 10/22/20 11:34 FiO2 35 % 10/16/20 05:10 FiO2 % 30.0 10/23/20 05:11 Sodium 146 mmol/L (137-145) H 10/23/20 06:00 Potassium 3.8 mmol/L (3.6-5.0) 10/23/20 06:00 Chloride 106.4 mmol/L (98-107) 10/23/20 06:00 Carbon Dioxide 35 mmol/L (22-30) H 10/23/20 06:00 Anion Gap 8 mmol/L 10/23/20 06:00 BUN 92 mg/dL (9-20) H 10/23/20 06:00 Creatinine 2.0 mg/dL (0.8-1.3) H 10/23/20 06:00 Estimated GFR 43 ml/min 10/23/20 06:00 BUN/Creatinine Ratio 46 % 10/23/20 06:00 Glucose 144 mg/dL (75-100) H 10/23/20 06:00 POC Glucose 139 mg/dL (70-105) H 10/22/20 23:55 Hemoglobin A1c 6.0 % (4-6) 10/11/20 02:00 Lactic Acid 1.10 mmol/L (0.7-2.0) 10/13/20 04:52 Calcium 9.6 mg/dL (8.4-10.2) 10/23/20 06:00 Phosphorus 5.20 mg/dL (2.5-4.5) H D 10/17/20 03:32 Magnesium 2.30 mg/dL (1.7-2.3) 10/17/20 03:32 Ferritin 81.4 ng/mL (30.0-300.0) 10/10/20 10:48 Total Bilirubin 1.70 mg/dL (0.1-1.2) H 10/18/20 03:27 AST 37 units/L (5-40) 10/18/20 03:27 ALT 32 units/L (7-56) 10/18/20 03:27 Alkaline Phosphatase 97 units/L (35-129) 10/18/20 03:27 Ammonia 214.0 umol/L (25-60) H 10/10/20 10:46 Lactate Dehydrogenase 386 units/L (91-180) H 10/10/20 10:48 Total Creatine Kinase 1192 units/L (55-170) H 10/10/20 18:18 CK-MB (CK-2) 21.7 ng/mL (0.0-4.0) H 10/10/20 18:18 CK-MB (CK-2) Rel Index 1.8 (0-4) 10/10/20 18:18 Troponin T 0.125 ng/mL (0.00-0.029) H* D 10/12/20 04:00 C-Reactive Protein 0.90 mg/dL (0.00-1.30) 10/10/20 10:48 NT-Pro-B Natriuret Pep 1187 pg/mL (0-900) H 10/10/20 10:46 Total Protein 6.3 g/dL (6.3-8.2) 10/18/20 03:27 Albumin 3.1 g/dL (3.9-5) L 10/18/20 03:27 Albumin/Globulin Ratio 1.0 % 10/18/20 03:27 Triglycerides 278 mg/dL (2-149) H 10/13/20 04:52 Cholesterol 138 mg/dL (50-199) 10/10/20 18:18 LDL Cholesterol Direct 76 mg/dL (50-130) 10/10/20 18:18 HDL Cholesterol 49 mg/dL (40-59) 10/10/20 18:18 Cholesterol/HDL Ratio 2.81 % 10/10/20 18:18 Procalcitonin 4.98 ng/mL (<0.15) 10/15/20 04:12 TSH 6.260 mlU/mL (0.270-4.200) H 10/10/20 10:46 Arterial Blood Glucose 149 mg/dL (65-95) H 10/23/20 05:11 Arterial Blood Ionized Calcium 5.2 mg/dL (4.6-5.3) 10/23/20 05:11 Urine Color Angelica (Yellow) 10/18/20 Unknown Urine Turbidity Cloudy (Clear) 10/18/20 Unknown Urine pH 5.0 (5.0-7.0) 10/18/20 Unknown Ur Specific [place] 1.017 (1.003-1.030) 10/18/20 Unknown Urine Protein 100 mg/dl mg/dL (Negative) 10/18/20 Unknown Urine Glucose (UA) Neg mg/dL (Negative) 10/18/20 Unknown Urine Ketones Neg mg/dL (Negative) 10/18/20 Unknown Urine Blood Lg (Negative) 10/18/20 Unknown Urine Nitrite Neg (Negative) 10/18/20 Unknown Urine Bilirubin Neg (Negative) 10/18/20 Unknown Urine Urobilinogen 4.0 mg/dL (<2.0) 10/18/20 Unknown Ur Leukocyte Esterase Neg (Negative) 10/18/20 Unknown Urine WBC (Auto) 115.0 /HPF (0.0-6.0) H 10/18/20 Unknown Urine RBC (Auto) 98.0 /HPF (0.0-6.0) 10/18/20 Unknown U Epithel Cells (Auto) 2.0 /HPF (0-13.0) 10/18/20 Unknown Urine WBC Clumps 3+ /HPF 10/18/20 Unknown Urine Mucus Few /HPF 10/11/20 13:30 Urine Eosinophils None seen (None Seen) 10/11/20 13:30 Urine Creatinine 93.7 mg/dL (0.1-20.0) H 10/19/20 13:14 Urine Sodium 25 mmol/L 10/19/20 13:14 Urine Urea Nitrogen 845 10/19/20 13:14 Nasal Screen MRSA (PCR) Positive (Negative) 10/20/20 13:30 Random Vancomycin 5.8 ug/mL (0-40.0) 10/21/20 06:30 Urine Opiates Screen Negative 10/10/20 10:50 Urine Methadone Screen Negative 10/10/20 10:50 Ur Barbiturates Screen Negative 10/10/20 10:50 Ur Phencyclidine Scrn Negative 10/10/20 10:50 Ur Amphetamines Screen Negative 10/10/20 10:50 U Benzodiazepines Scrn Negative 10/10/20 10:50 Urine Cocaine Screen Negative 10/10/20 10:50 U Marijuana (THC) Screen Positive 10/10/20 10:50 Drugs of Abuse Note Disclamer 10/10/20 10:50 Plasma/Serum Alcohol < 0.01 % (0-0.07) 10/10/20 10:48 Coronavirus (PCR) Negative (Negative) 10/11/20 Unknown Blood Type AB POSITIVE 10/10/20 10:48 Antibody Screen Negative 10/10/20 10:48 Microbiology: Microbiology 10/20/20 12:35 Nose - Right Eye/Ear/Nose/Throat Culture - Preliminary Staphylococcus Aureus 10/18/20 11:00 Peripheral/Venous Blood Culture - Preliminary NO GROWTH AFTER 4 DAYS 10/18/20 11:00 Peripheral/Venous Blood Culture - Preliminary NO GROWTH AFTER 4 DAYS Tuttle/IV: Voiding Method Diaper Active Medications - Current Medications Current Medications: Generic Name Dose Route Start Last Admin Trade Name Freq PRN Reason Stop Dose Admin Acetaminophen 650 mg 10/10/20 21:51 10/20/20 09:11 Acetaminophen 325 Mg Tab PO 650 mg Q4H PRN Administration Pain MILD(1-3)/Fever >100.5/SALV[place]OR Acetaminophen 650 mg 10/11/20 11:24 10/17/20 17:16 Acetaminophen 650 Mg Rect Supp IN 650 mg Q6H PRN Administration Fever >101 Albuterol 2.5 mg 10/11/20 13:12 Albuterol 2.5 Mg/3 Ml Nebu IH Q6HRT PRN Shortness Of Breath Lipase/Protease/Amylase 1 each 10/10/20 22:18 Lipase 10,500/Protease 25,000/Amylase 43,750 (Units) Dr Santana FEEDTUBE PRN PRN For Clogged Feeding Tube Clonidine HCl 0.3 mg 10/14/20 15:00 10/21/20 14:05 Clonidine Tts 0.3 Mg/24 Hr Patch TD 0.3 mg Fr PEPITO Administration Docusate Sodium 100 mg 10/16/20 22:00 10/22/20 21:41 Docusate Sodium 100 Mg/10 Ml Oral Liqd PO 100 mg BID PEPITO Administration Fentanyl 50 mcg 10/16/20 14:10 10/20/20 07:43 Fentanyl 100 Mcg/2 Ml Inj IV 50 mcg Q10MIN PRN Administration ANALGESIA Fluticasone Propionate 50 mcg 10/18/20 14:00 10/22/20 21:41 Fluticasone Propionate Nasal [place] 16 Gm NS 50 mcg BID PEPITO Administration Glycopyrrolate 2 mg 10/19/20 14:00 10/23/20 07:49 Glycopyrrolate 1 Mg Tab PO 2 mg Q6H PEPITO Administration Heparin Sodium (Porcine) 5,000 unit 10/11/20 22:00 10/22/20 21:41 Heparin 5,000 Unit/1 Ml Vial SUB-Q 5,000 unit Q12HR PEPITO Administration Hydralazine HCl 5 mg 10/15/20 20:25 10/23/20 07:30 Hydralazine 20 Mg/1 Ml Inj IV 5 mg Q6H PRN Administration Hypertension Hydralazine HCl 50 mg 10/19/20 14:00 10/23/20 05:48 Hydralazine 25 Mg Tab PO 50 mg Q8HR PEPITO Administration Hydromorphone HCl 0.5 mg 10/10/20 21:51 10/15/20 14:45 Hydromorphone 1 Mg/1 Ml Inj IV 0.5 mg Q3H PRN Administration Pain , Severe (7-10) Hydrophilic Ointment 1 applic 10/10/20 10:34 Lip Therapy Vaseline TP Q2HR PRN Dry Lips Propofol 1,000 mg in 100 mls @ 4.23 mls/hr 10/10/20 12:00 10/17/20 00:36 Diprivan 10 Mg/Ml IV 0 mcg/kg/min TITR PEPITO 0 mls/hr Titration Protocol 5 MCG/KG/MIN Nitroglycerin/Dextrose 50 mg in 250 mls @ 3 mls/hr 10/10/20 13:00 10/10/20 13:17 Tridil Drip 50mg/250ml IV 0 mcg/min TITR PEPITO 0 mls/hr Titration Protocol 10 MCG/MIN Norepinephrine 8 mg/ Sodium 250 mls @ 3.75 mls/hr 10/10/20 14:00 10/10/20 22:15 Chloride IV 0 mcg/min TITRATE PEPITO 0 mls/hr Titration Protocol 2 MCG/MIN Levetiracetam 500 mg/ Dextrose 105 mls @ 400 mls/hr 10/13/20 18:00 10/23/20 05:48 IV 400 mls/hr Q12H PEPITO Administration Fentanyl Citrate 2,000 mcg in 100 mls @ 6.175 mls/hr 10/16/20 15:00 10/23/20 06:14 Fentanyl Drip Premix IV 2 mcg/kg/hr TITR PEPITO 12.35 mls/hr Administration Protocol 1 MCG/KG/HR Linezolid 600 mg in 300 mls @ 300 mls/hr 10/20/20 12:00 10/22/20 21:40 Zyvox 600mg/300ml IV 10/29/20 22:59 300 mls/hr Q12HR PEPITO Administration Protocol Metoclopramide HCl 10 mg 10/10/20 21:51 Metoclopramide 10 Mg/2 Ml Inj IV Q6H PRN Nausea And Vomiting Metoprolol Tartrate 100 mg 10/21/20 14:00 10/23/20 07:48 Metoprolol Tartrate 50 Mg Tab PO 100 mg TID PEPITO Administration Multi-Ingred Cream/Lotion/Oil/Oint 1 applic 10/10/20 10:34 Mineral Oil/Petrolatum, White Ophth Oint 3.5 Gm OU Q4HR PRN Dry Eye(s) Ondansetron HCl 4 mg 10/10/20 21:51 Ondansetron 4 Mg/2 Ml Inj IV Q3H PRN Nausea And Vomiting Pantoprazole Sodium 40 mg 10/12/20 22:00 10/22/20 21:41 Pantoprazole 40 Mg Inj IV 40 mg BID PEPITO Administration Polyethylene Glycol 17 gm 10/17/20 10:00 10/22/20 09:40 Polyethylene Glycol 3350 17 Gm Powder PO 17 gm [facility] Administration Scopolamine 1 each 10/17/20 10:00 10/20/20 09:14 Scopolamine Transdermal Patch 72 Hr TD 1 each Q3D PEPITO Administration Simple Syrup 15 ml 10/10/20 22:18 Simple Syrup 15 Ml FEEDTUBE PRN PRN Hypoglycemia Simple Syrup 30 ml 10/10/20 22:18 Simple Syrup 15 Ml FEEDTUBE PRN PRN Hypoglycemia Sodium Bicarbonate 325 mg 10/10/20 22:18 Sodium Bicarbonate 325 Mg Tab FEEDTUBE PRN PRN For Clogged Feeding Tube Sodium Chloride 10 ml 10/10/20 22:00 10/22/20 21:41 Sodium Chloride 0.9% 10 Ml Flush Syringe IV 10 ml BID PEPITO Administration Sodium Chloride 10 ml 10/10/20 21:51 10/21/20 09:56 Sodium Chloride 0.9% 10 Ml Flush Syringe IV 10 ml PRN PRN Administration LINE FLUSH Nutrition/Malnutrition Assess - Dietary Evaluation Nutrition/Malnutrition Findings: Nutrition Notes Start: 10/11/20 08:38 Freq: Status: Active Protocol: Document 10/21/20 13:44 CW (Rec: 10/21/20 13:48 CW [id number]) Nutrition Notes Current Diagnosis Acute Kidney Injury,Sepsis, Hypertension,Heart Failure, Respiratory Failure Other Pertinent Diagnosis GIB, pneu, Covid 19, [place], pulmonary edema Current Diet TF Nepro at 45 ml/hr Labs/Tests BUN 104 Cr 2.9 BG 153 Pertinent Medications Miralax Colace NS at 75ml/hr Height 6 ft Weight 129.7 kg [place] Body Weight (kg) 80.90 BMI 38.7 Weight change and time frame Weight gain noted, will monitor Weight Status Morbidly Obese Subjective/Other Information F/T for TF at goal and tolerance. TF now running at goal of 45 ml/hr and is being well tolerated Percent of energy/protein needs met: 100%/54% Current % PO Negligible Minimum of two criteria No physical signs of malnutrition #2 Nutrition Diagnosis Inadequate energy intake As Evidenced by Signs and Symptoms TF Providing 100% of kcal needs Diagnosis Progress(for reassessment Resolved documentation) #1 Nutrition Diagnosis Inadequate oral intake Diagnosis Progress(for reassessment Continues documentation) Is patient on ventilator? Yes Is Patient Ambulatory and/or Out of Bed No REE-([facility]-confined to bed) 2619.528 Kcal/Kg value to use for calculation 14 Approximate Energy Requirements Using 1816 kcal/Kg Calculation Used for Recommendations Kcal/kg Additional Notes protein needs: >162g (>2 kgIBW ) fluid needs: 1 ml/kcal or per MD Nutrition Intervention Change Diet Order: Continue TF Nutrition Support: [place]ro at 45 ml/hr with a free water flush of 200 ml q4h Kcal 1,944 Protein (gm) 87 Fluid (mL) 785 Goal #1 Tolerate TF Goal #2 Meet at least 75% of kcal needs via TF Anticipated Discharge Needs: unable to determine at this time Follow-Up By: 10/25/20 Additional Comments F/U for TF tolerance
[2020-10-23] MEDS: DOCUSATE SODIUM 100 MG/10 ML ORAL LIQD PO SCH ×2 (09:35→21:42)
[2020-10-23] MEDS: FLUTICASONE PROPIONATE NASAL SPRAY 16 GM NS SCH ×2 (09:35→21:43)
[2020-10-23] MEDS: SCOPOLAMINE TRANSDERMAL PATCH 72 HR TD SCH (09:35)
[2020-10-23] MEDS: HEPARIN 5,000 UNIT/1 ML VIAL SUB-Q SCH ×2 (09:36→21:42)
[2020-10-23] MEDS: POLYETHYLENE GLYCOL 3350 17 GM POWDER PO SCH (09:36)
[2020-10-23] MEDS: PANTOPRAZOLE 40 MG INJ IV SCH ×2 (09:36→21:42)
[2020-10-23] MEDS: LINEZOLID 600 MG/300 ML BAG IV SCH ×2 (09:37→21:43)
[2020-10-23] MEDS: fentaNYL 100 MCG/2 ML INJ IV PRN (10:53)
--- NOTE | 2020-10-23 11:32 | Progress Note ---
Assessment and Plan Cardiac arrest x3 with ROSC Severe septic and cardiogenic shock Acute respiratory failure with hypoxia and hypercarbia on MVS Acute pulmonary edema MOE (acute kidney injury) Lactic acidosis, severe metabolic acidosis Bilateral pneumonia, aspiration pneumonia Elevated troponins Hypernatremia -ABG and CXR as clinically indicated -Diuresis as tolerated -SAT/SBT today. If needed resume Fentanyl at half dose, discussed with RN Plan to get MRI tomorrow to help with prognostication per Neurology -Increase free water flushes to help treat hypernatremia -Will discuss trach and PEG with family tomorrow -VAP bundle addressed, aspiration precautions HOB >30 -probably an element of hypoxic damage, Neurology work up on going. -Titrate supplemental oxygen to keep O2 sats between 89-92% - Peep at 8, continue to monitor airway pressures closely - Lung protective strategies - continue bronchodilators with pulmonary hygiene per RT -Daily assessment for readiness to wean. SAT and SBTs daily - avoid nephrotoxins, renal dosing of all medications -Blood pressure control and management - Accuchecks with glycemic control per SSI (While critically ill target blood glucose of 140-180 mg/dL; avoid hypoglycemia) - Titrate for target RASS 0 to -1 - Maintenance of sleep-wake cycle, avoid delirium -Enteric nutritional support - Stress ulcer prophylaxis-Pantoprazole -VTE prophyalxis- Heparin -Mobility, off loading, frequent turning per facility protocol to prevent pressure ulcers - Monitor hemodynamics closely CONDITION: CRITICAL PROGNOSIS: GUARDED CODE STATUS: FULL CODE The high probability of a clinically significant, sudden or life-threatening deterioration of the [respiratory, cardiovascular, renal & neurologic] system(s) required my full and direct attention, intervention and personal management. The aggregate critical care time was [33 ] minutes without overlap. Time includes spent on; [x] Data Review and interpretation [x] Patient assessment and monitoring of vital signs [x] Documentation [x] Medication orders and management Subjective Date of service: 10/23/20 Principal diagnosis: Cardiac arrest; Septic Shock; Ac. hypoxemic & hypercapnic resp failure; MOE Interval history: Patient is seen today for: Cardiac arrest with ROSC; Severe septic and ca rdiogenic shock; Acute respiratory failure with hypoxemia and hypercarbia; Acute pulmonary edema; MOE; Lactic acidosis; severe metabolic acidosis; Bilateral pneumonia; aspiration pneumonia; Elevated troponins Seen and examined at bedside; 24hour events reviewed; nursing and respiratory care staff consulted; no adverse overnight events reported to me; resting peacefully in bed on MVS; no fevers, no vomiting, no diarrhea, tolerating tube feedings Mental status changes persist, awake but not tracking, not obeying commands - on Fentanyl at 1. Tolerated PSV for about an hour. He became tachypnic and so was placed back on full support. Objective Vital Signs - 12hr 10/23/20 10/23/20 10/23/20 00:00 00:12 00:30 Temperature 99.1 F Pulse Rate 64 67 66 Pulse Rate [ 66 From Monitor] Respiratory 16 16 Rate Blood Pressure 117/57 113/59 111/56 O2 Sat by Pulse 99 98 100 Oximetry 10/23/20 10/23/20 10/23/20 01:00 01:30 02:00 Temperature Pulse Rate 67 69 68 Pulse Rate [ From Monitor] Respiratory 15 16 16 Rate Blood Pressure 107/57 126/75 115/52 O2 Sat by Pulse 99 97 98 Oximetry 10/23/20 10/23/20 10/23/20 02:30 03:00 03:30 Temperature Pulse Rate 65 72 68 Pulse Rate [ From Monitor] Respiratory 16 16 16 Rate Blood Pressure 107/62 108/54 119/65 O2 Sat by Pulse 99 98 99 Oximetry 10/23/20 10/23/20 10/23/20 04:00 04:30 05:00 Temperature 98.6 F Pulse Rate 67 70 68 Pulse Rate [ 67 From Monitor] Respiratory 16 16 16 Rate Blood Pressure 152/103 113/57 119/49 O2 Sat by Pulse 98 99 98 Oximetry 10/23/20 10/23/20 10/23/20 05:11 05:30 06:00 Temperature Pulse Rate 69 65 71 Pulse Rate [ From Monitor] Respiratory 16 12 Rate Blood Pressure 173/89 121/67 139/78 O2 Sat by Pulse 98 98 99 Oximetry 10/23/20 10/23/20 10/23/20 06:30 07:00 07:21 Temperature 98.4 F Pulse Rate 74 79 Pulse Rate [ From Monitor] Respiratory 13 14 Rate Blood Pressure 133/69 142/83 O2 Sat by Pulse 98 98 Oximetry 10/23/20 10/23/20 10/23/20 07:30 07:33 07:48 Temperature Pulse Rate 82 77 84 Pulse Rate [ From Monitor] Respiratory 14 Rate Blood Pressure 142/82 203/101 135/76 O2 Sat by Pulse 98 97 Oximetry 10/23/20 10/23/20 10/23/20 08:00 08:30 09:00 Temperature Pulse Rate 76 68 67 Pulse Rate [ 69 From Monitor] Respiratory 14 15 15 Rate Blood Pressure 133/79 136/77 132/72 O2 Sat by Pulse 97 97 98 Oximetry 10/23/20 10/23/20 10/23/20 09:30 10:00 10:30 Temperature Pulse Rate 69 80 75 Pulse Rate [ From Monitor] Respiratory 15 24 23 Rate Blood Pressure 142/81 132/87 168/104 O2 Sat by Pulse 98 98 98 Oximetry 10/23/20 10/23/20 11:00 11:03 Temperature Pulse Rate 81 81 Pulse Rate [ From Monitor] Respiratory 17 18 Rate Blood Pressure 117/69 127/68 O2 Sat by Pulse 99 99 Oximetry Constitutional: no acute distress, other (middle aged obese male with mildly increased respiratory efort at rest) Eyes: non-icteric ENT: oropharynx moist, oropharyngeal exudate pre, other (ETT 23 cm ANNIE) Neck: supple, no lymphadenopathy, no JVD Effort: mildly labored Ascultation: Bilateral: clear, diminished breath sounds, rhonchi (scant) Percussion: Bilateral: not dull Cardiovascular: regular rate and rhythm, other (S1,S2) Gastrointestinal: normoactive bowel sounds, soft, non-tender, non-distended (protuberant) Integumentary: normal Extremities: no cyanosis, no edema, pulses normal, no ischemia or petechiae Neurologic: pupils equal and round, unable to assess Psychiatric: other (unable to assess re: AMS) CBC and BMP: 10/21/20 06:30 10/23/20 06:00 ABG, PT/INR, D-dimer: ABG ABG pH 7.334 (7.320-7.450) 10/23/20 05:11 POC ABG pCO2 63.6 mmHg (32.0-48.0) H 10/23/20 05:11 ABG pCO2 55.5 mm Hg 10/16/20 05:10 POC ABG pO2 81.2 mmHg (83-108) L 10/23/20 05:11 ABG pO2 104.5 mm Hg (80.0-90.0) H 10/16/20 05:10 POC ABG HCO3 33.1 10/23/20 05:11 ABG O2 Saturation 96.0 (0-100) 10/23/20 05:11 PT/INR, D-dimer PT 13.8 Sec. (12.2-14.9) 10/10/20 18:18 INR 1.07 (0.87-1.13) 10/10/20 18:18 D-Dimer 679.5 ng/mlDDU (0-234) H 10/10/20 10:48 Abnormal lab findings: Abnormal Labs 10/10/20 10/10/20 10/10/20 10:46 10:46 10:46 WBC RBC Hgb Hct RDW Lymph % (Auto) [place] % (Auto) Lymph # (Auto) [place] # (Auto) Seg Neutrophils % Lymphocytes % (Manual) Monocytes % (Manual) Seg Neutrophils # Seg Neutrophils # Man Lymphocytes # (Manual) Monocytes # (Manual) D-Dimer Heparin Anti-Xa Level ABG pH POC ABG pCO2 POC ABG pO2 ABG pO2 ABG HCO3 ABG O2 Saturation ABG Base Excess ABG Hemoglobin ABG Oxyhemoglobin ABG Sodium ABG Potassium ABG Chloride ABG Glucose VBG pH Oxyhemoglobin Carboxyhemoglobin Sodium Potassium Chloride Carbon Dioxide BUN Creatinine Glucose POC Glucose Lactic Acid 13.60 H* Calcium Phosphorus Magnesium Total Bilirubin AST ALT Ammonia 214.0 H Lactate Dehydrogenase Total Creatine Kinase CK-MB (CK-2) Troponin T NT-Pro-B Natriuret Pep Total Protein Albumin Triglycerides TSH 6.260 H Arterial Blood Glucose Arterial Blood Ionized Calcium Urine pH Urine WBC (Auto) Urine Creatinine 10/10/20 10/10/20 10/10/20 10:46 10:48 10:48 WBC RBC 5.28 H Hgb 15.5 H Hct 48.8 H RDW Lymph % (Auto) [place] % (Auto) Lymph # (Auto) [place] # (Auto) Seg Neutrophils % Lymphocytes % (Manual) 42.0 H Monocytes % (Manual) Seg Neutrophils # Seg Neutrophils # Man Lymphocytes # (Manual) Monocytes # (Manual) D-Dimer Heparin Anti-Xa Level ABG pH POC ABG pCO2 POC ABG pO2 ABG pO2 ABG HCO3 ABG O2 Saturation ABG Base Excess ABG Hemoglobin ABG Oxyhemoglobin ABG Sodium ABG Potassium ABG Chloride ABG Glucose VBG pH Oxyhemoglobin Carboxyhemoglobin Sodium Potassium 3.3 L Chloride 91.2 L Carbon Dioxide BUN Creatinine 1.8 H Glucose 231 H POC Glucose Lactic Acid Calcium Phosphorus Magnesium Total Bilirubin AST 60 H ALT 57 H Ammonia Lactate Dehydrogenase Total Creatine Kinase CK-MB (CK-2) Troponin T NT-Pro-B Natriuret Pep 1187 H Total Protein 9.0 H Albumin Triglycerides TSH Arterial Blood Glucose Arterial Blood Ionized Calcium Urine pH Urine WBC (Auto) Urine Creatinine 10/10/20 10/10/20 10/10/20 10:48 10:48 10:48 WBC RBC Hgb Hct RDW Lymph % (Auto) [place] % (Auto) Lymph # (Auto) [place] # (Auto) Seg Neutrophils % Lymphocytes % (Manual) Monocytes % (Manual) Seg Neutrophils # Seg Neutrophils # Man Lymphocytes # (Manual) Monocytes # (Manual) D-Dimer 679.5 H Heparin Anti-Xa Level ABG pH POC ABG pCO2 POC ABG pO2 ABG pO2 ABG HCO3 ABG O2 Saturation ABG Base Excess ABG Hemoglobin ABG Oxyhemoglobin ABG Sodium ABG Potassium ABG Chloride ABG Glucose VBG pH 6.870 L* Oxyhemoglobin Carboxyhemoglobin Sodium Potassium Chloride Carbon Dioxide BUN Creatinine Glucose POC Glucose Lactic Acid Calcium Phosphorus Magnesium Total Bilirubin AST ALT Ammonia Lactate Dehydrogenase 386 H Total Creatine Kinase CK-MB (CK-2) Troponin T NT-Pro-B Natriuret Pep Total Protein Albumin Triglycerides TSH Arterial Blood Glucose Arterial Blood Ionized Calcium Urine pH Urine WBC (Auto) Urine Creatinine 10/10/20 10/10/20 10/10/20 14:10 14:20 15:50 WBC RBC Hgb Hct RDW Lymph % (Auto) [place] % (Auto) Lymph # (Auto) [place] # (Auto) Seg Neutrophils % Lymphocytes % (Manual) Monocytes % (Manual) Seg Neutrophils # Seg Neutrophils # Man Lymphocytes # (Manual) Monocytes # (Manual) D-Dimer Heparin Anti-Xa Level ABG pH 7.175 L 7.247 L POC ABG pCO2 85.0 H POC ABG pO2 43.7 L ABG pO2 60.3 L ABG HCO3 32.0 H ABG O2 Saturation 86.1 L ABG Base Excess ABG Hemoglobin ABG Oxyhemoglobin 67.7 L ABG Sodium ABG Potassium ABG Chloride ABG Glucose 247 H VBG pH Oxyhemoglobin 84.4 L Carboxyhemoglobin Sodium Potassium Chloride Carbon Dioxide BUN Creatinine Glucose POC Glucose Lactic Acid 4.00 H* Calcium Phosphorus Magnesium Total Bilirubin AST ALT Ammonia Lactate Dehydrogenase Total Creatine Kinase CK-MB (CK-2) Troponin T NT-Pro-B Natriuret Pep Total Protein Albumin Triglycerides TSH Arterial Blood Glucose 247 H Arterial Blood Ionized Calcium 4.4 L Urine pH Urine WBC (Auto) Urine Creatinine 10/10/20 10/10/20 10/10/20 15:50 16:22 18:18 WBC RBC Hgb Hct RDW Lymph % (Auto) [place] % (Auto) Lymph # (Auto) [place] # (Auto) Seg Neutrophils % Lymphocytes % (Manual) Monocytes % (Manual) Seg Neutrophils # Seg Neutrophils # Man Lymphocytes # (Manual) Monocytes # (Manual) D-Dimer Heparin Anti-Xa Level ABG pH 7.171 L POC ABG pCO2 96.6 H POC ABG pO2 55.3 L ABG pO2 ABG HCO3 ABG O2 Saturation ABG Base Excess ABG Hemoglobin ABG Oxyhemoglobin 81.4 L ABG Sodium ABG Potassium ABG Chloride ABG Glucose 115 H VBG pH Oxyhemoglobin Carboxyhemoglobin Sodium Potassium Chloride Carbon Dioxide BUN Creatinine Glucose POC Glucose 132 H Lactic Acid Calcium Phosphorus Magnesium Total Bilirubin AST ALT Ammonia Lactate Dehydrogenase Total Creatine Kinase 1192 H CK-MB (CK-2) 21.7 H Troponin T 0.377 H* D NT-Pro-B Natriuret Pep Total Protein Albumin Triglycerides TSH Arterial Blood Glucose 115 H Arterial Blood Ionized Calcium Urine pH Urine WBC (Auto) Urine Creatinine 10/10/20 10/10/20 10/10/20 18:18 18:18 22:49 WBC 23.0 H RBC 5.12 H Hgb Hct RDW Lymph % (Auto) [place] % (Auto) Lymph # (Auto) [place] # (Auto) Seg Neutrophils % Lymphocytes % (Manual) 4.0 L Monocytes % (Manual) 9.0 H Seg Neutrophils # Seg Neutrophils # Man 13.8 H Lymphocytes # (Manual) 0.9 L Monocytes # (Manual) 2.1 H D-Dimer Heparin Anti-Xa Level ABG pH POC ABG pCO2 POC ABG pO2 ABG pO2 ABG HCO3 ABG O2 Saturation ABG Base Excess ABG Hemoglobin ABG Oxyhemoglobin ABG Sodium ABG Potassium ABG Chloride ABG Glucose VBG pH Oxyhemoglobin Carboxyhemoglobin Sodium 146 H Potassium Chloride Carbon Dioxide 34 H D BUN 27 H Creatinine 2.7 H Glucose 102 H POC Glucose Lactic Acid Calcium Phosphorus Magnesium Total Bilirubin AST 90 H ALT 66 H Ammonia Lactate Dehydrogenase Total Creatine Kinase CK-MB (CK-2) Troponin T 0.273 H* D NT-Pro-B Natriuret Pep Total Protein Albumin Triglycerides TSH Arterial Blood Glucose Arterial Blood Ionized Calcium Urine pH Urine WBC (Auto) Urine Creatinine 10/11/20 10/11/20 10/11/20 02:00 02:00 02:00 WBC 17.3 H RBC Hgb Hct RDW Lymph % (Auto) 3.9 L [place] % (Auto) Lymph # (Auto) 0.7 L [place] # (Auto) Seg Neutrophils % 93.0 H Lymphocytes % (Manual) Monocytes % (Manual) Seg Neutrophils # 16.1 H Seg Neutrophils # Man Lymphocytes # (Manual) Monocytes # (Manual) D-Dimer Heparin Anti-Xa Level ABG pH POC ABG pCO2 POC ABG pO2 ABG pO2 ABG HCO3 ABG O2 Saturation ABG Base Excess ABG Hemoglobin ABG Oxyhemoglobin ABG Sodium ABG Potassium ABG Chloride ABG Glucose VBG pH Oxyhemoglobin Carboxyhemoglobin Sodium 149 H Potassium 3.3 L Chloride 95.3 L Carbon Dioxide 37 H BUN 29 H Creatinine 2.6 H Glucose POC Glucose Lactic Acid Calcium Phosphorus Magnesium Total Bilirubin AST 80 H ALT 59 H Ammonia Lactate Dehydrogenase Total Creatine Kinase CK-MB (CK-2) Troponin T 0.201 H* D NT-Pro-B Natriuret Pep Total Protein Albumin 3.6 L Triglycerides TSH Arterial Blood Glucose Arterial Blood Ionized Calcium Urine pH Urine WBC (Auto) Urine Creatinine 10/11/20 10/11/20 10/11/20 03:51 08:35 11:15 WBC RBC Hgb Hct RDW Lymph % (Auto) [place] % (Auto) Lymph # (Auto) [place] # (Auto) Seg Neutrophils % Lymphocytes % (Manual) Monocytes % (Manual) Seg Neutrophils # Seg Neutrophils # Man Lymphocytes # (Manual) Monocytes # (Manual) D-Dimer Heparin Anti-Xa Level 0.22 L ABG pH 7.491 H POC ABG pCO2 57.6 H POC ABG pO2 ABG pO2 ABG HCO3 ABG O2 Saturation ABG Base Excess ABG Hemoglobin ABG Oxyhemoglobin ABG Sodium 150.0 H ABG Potassium 3.1 L ABG Chloride 96.0 L ABG Glucose 122 H VBG pH Oxyhemoglobin Carboxyhemoglobin Sodium Potassium Chloride Carbon Dioxide BUN Creatinine Glucose POC Glucose 151 H Lactic Acid Calcium Phosphorus Magnesium Total Bilirubin AST ALT Ammonia Lactate Dehydrogenase Total Creatine Kinase CK-MB (CK-2) Troponin T NT-Pro-B Natriuret Pep Total Protein Albumin Triglycerides TSH Arterial Blood Glucose 122 H Arterial Blood Ionized Calcium 3.9 L Urine pH Urine WBC (Auto) Urine Creatinine 10/11/20 10/11/20 10/11/20 13:30 13:30 13:30 WBC 15.0 H RBC Hgb Hct RDW Lymph % (Auto) [place] % (Auto) Lymph # (Auto) [place] # (Auto) Seg Neutrophils % Lymphocytes % (Manual) Monocytes % (Manual) Seg Neutrophils # Seg Neutrophils # Man Lymphocytes # (Manual) Monocytes # (Manual) D-Dimer Heparin Anti-Xa Level ABG pH POC ABG pCO2 POC ABG pO2 ABG pO2 ABG HCO3 ABG O2 Saturation ABG Base Excess ABG Hemoglobin ABG Oxyhemoglobin ABG Sodium ABG Potassium ABG Chloride ABG Glucose VBG pH Oxyhemoglobin Carboxyhemoglobin Sodium Potassium Chloride Carbon Dioxide BUN Creatinine Glucose POC Glucose Lactic Acid Calcium Phosphorus Magnesium Total Bilirubin AST ALT Ammonia Lactate Dehydrogenase Total Creatine Kinase CK-MB (CK-2) Troponin T NT-Pro-B Natriuret Pep Total Protein Albumin Triglycerides TSH Arterial Blood Glucose Arterial Blood Ionized Calcium Urine pH 9.0 H Urine WBC (Auto) 18.0 H Urine Creatinine 80.5 H 10/11/20 10/11/20 10/12/20 17:17 23:14 03:53 WBC RBC Hgb Hct RDW Lymph % (Auto) [place] % (Auto) Lymph # (Auto) [place] # (Auto) Seg Neutrophils % Lymphocytes % (Manual) Monocytes % (Manual) Seg Neutrophils # Seg Neutrophils # Man Lymphocytes # (Manual) Monocytes # (Manual) D-Dimer Heparin Anti-Xa Level ABG pH 7.545 H POC ABG pCO2 54.6 H POC ABG pO2 231.9 H ABG pO2 ABG HCO3 ABG O2 Saturation ABG Base Excess ABG Hemoglobin ABG Oxyhemoglobin 98.5 H ABG Sodium 150.5 H ABG Potassium 3.2 L ABG Chloride 96.0 L ABG Glucose 148 H VBG pH Oxyhemoglobin Carboxyhemoglobin Sodium Potassium Chloride Carbon Dioxide BUN Creatinine Glucose POC Glucose 121 H 135 H Lactic Acid Calcium Phosphorus Magnesium Total Bilirubin AST ALT Ammonia Lactate Dehydrogenase Total Creatine Kinase CK-MB (CK-2) Troponin T NT-Pro-B Natriuret Pep Total Protein Albumin Triglycerides TSH Arterial Blood Glucose 148 H Arterial Blood Ionized Calcium 3.8 L Urine pH Urine WBC (Auto) Urine Creatinine 10/12/20 10/12/20 10/12/20 04:00 05:10 05:12 WBC 14.3 H RBC Hgb 11.6 L Hct 35.2 L RDW Lymph % (Auto) [place] % (Auto) Lymph # (Auto) [place] # (Auto) Seg Neutrophils % Lymphocytes % (Manual) Monocytes % (Manual) Seg Neutrophils # Seg Neutrophils # Man Lymphocytes # (Manual) Monocytes # (Manual) D-Dimer Heparin Anti-Xa Level ABG pH POC ABG pCO2 POC ABG pO2 ABG pO2 ABG HCO3 ABG O2 Saturation ABG Base Excess ABG Hemoglobin ABG Oxyhemoglobin ABG Sodium ABG Potassium ABG Chloride ABG Glucose VBG pH Oxyhemoglobin Carboxyhemoglobin Sodium 155 H Potassium 3.3 L Chloride 97.9 L Carbon Dioxide 47 H* D BUN 50 H Creatinine 3.4 H Glucose 146 H POC Glucose 137 H Lactic Acid Calcium 8.0 L Phosphorus Magnesium Total Bilirubin AST ALT Ammonia Lactate Dehydrogenase Total Creatine Kinase CK-MB (CK-2) Troponin T 0.125 H* D NT-Pro-B Natriuret Pep Total Protein Albumin Triglycerides TSH Arterial Blood Glucose Arterial Blood Ionized Calcium Urine pH Urine WBC (Auto) Urine Creatinine 10/12/20 10/12/20 10/12/20 11:39 16:01 19:49 WBC RBC Hgb Hct RDW Lymph % (Auto) [place] % (Auto) Lymph # (Auto) [place] # (Auto) Seg Neutrophils % Lymphocytes % (Manual) Monocytes % (Manual) Seg Neutrophils # Seg Neutrophils # Man Lymphocytes # (Manual) Monocytes # (Manual) D-Dimer Heparin Anti-Xa Level ABG pH POC ABG pCO2 POC ABG pO2 ABG pO2 ABG HCO3 ABG O2 Saturation ABG Base Excess ABG Hemoglobin ABG Oxyhemoglobin ABG Sodium ABG Potassium ABG Chloride ABG Glucose VBG pH Oxyhemoglobin Carboxyhemoglobin Sodium 157 H Potassium 3.3 L Chloride Carbon Dioxide 47 H* BUN 52 H Creatinine 3.0 H Glucose 137 H POC Glucose 138 H 119 H Lactic Acid Calcium 8.0 L Phosphorus Magnesium Total Bilirubin AST ALT Ammonia Lactate Dehydrogenase Total Creatine Kinase CK-MB (CK-2) Troponin T NT-Pro-B Natriuret Pep Total Protein Albumin Triglycerides TSH Arterial Blood Glucose Arterial Blood Ionized Calcium Urine pH Urine WBC (Auto) Urine Creatinine 10/12/20 10/13/20 10/13/20 23:37 02:28 04:52 WBC RBC Hgb Hct RDW Lymph % (Auto) [place] % (Auto) Lymph # (Auto) [place] # (Auto) Seg Neutrophils % Lymphocytes % (Manual) Monocytes % (Manual) Seg Neutrophils # Seg Neutrophils # Man Lymphocytes # (Manual) Monocytes # (Manual) D-Dimer Heparin Anti-Xa Level ABG pH 7.485 H POC ABG pCO2 57.1 H POC ABG pO2 ABG pO2 ABG HCO3 ABG O2 Saturation ABG Base Excess ABG Hemoglobin ABG Oxyhemoglobin ABG Sodium 152.4 H ABG Potassium ABG Chloride ABG Glucose 129 H VBG pH Oxyhemoglobin Carboxyhemoglobin Sodium 155 H Potassium Chloride Carbon Dioxide 45 H* BUN 52 H Creatinine 2.7 H Glucose 121 H POC Glucose 131 H Lactic Acid Calcium Phosphorus Magnesium 2.40 H Total Bilirubin AST ALT Ammonia Lactate Dehydrogenase Total Creatine Kinase CK-MB (CK-2) Troponin T NT-Pro-B Natriuret Pep Total Protein Albumin Triglycerides 278 H TSH Arterial Blood Glucose 129 H Arterial Blood Ionized Calcium 4.1 L Urine pH Urine WBC (Auto) Urine Creatinine 10/13/20 10/13/20 10/13/20 04:52 05:13 11:37 WBC 14.7 H RBC Hgb 11.7 L Hct RDW 15.8 H Lymph % (Auto) [place] % (Auto) Lymph # (Auto) [place] # (Auto) Seg Neutrophils % Lymphocytes % (Manual) Monocytes % (Manual) Seg Neutrophils # Seg Neutrophils # Man Lymphocytes # (Manual) Monocytes # (Manual) D-Dimer Heparin Anti-Xa Level ABG pH POC ABG pCO2 POC ABG pO2 ABG pO2 ABG HCO3 ABG O2 Saturation ABG Base Excess ABG Hemoglobin ABG Oxyhemoglobin ABG Sodium ABG Potassium ABG Chloride ABG Glucose VBG pH Oxyhemoglobin Carboxyhemoglobin Sodium Potassium Chloride Carbon Dioxide BUN Creatinine Glucose POC Glucose 116 H 116 H Lactic Acid Calcium Phosphorus Magnesium Total Bilirubin AST ALT Ammonia Lactate Dehydrogenase Total Creatine Kinase CK-MB (CK-2) Troponin T NT-Pro-B Natriuret Pep Total Protein Albumin Triglycerides TSH Arterial Blood Glucose Arterial Blood Ionized Calcium Urine pH Urine WBC (Auto) Urine Creatinine 10/13/20 10/14/20 10/14/20 17:50 03:45 04:46 WBC 11.1 H RBC Hgb Hct RDW 15.3 H Lymph % (Auto) [place] % (Auto) Lymph # (Auto) [place] # (Auto) Seg Neutrophils % Lymphocytes % (Manual) Monocytes % (Manual) Seg Neutrophils # Seg Neutrophils # Man Lymphocytes # (Manual) Monocytes # (Manual) D-Dimer Heparin Anti-Xa Level ABG pH POC ABG pCO2 59.6 H POC ABG pO2 ABG pO2 ABG HCO3 ABG O2 Saturation ABG Base Excess ABG Hemoglobin ABG Oxyhemoglobin ABG Sodium 151.4 H ABG Potassium 3.3 L ABG Chloride ABG Glucose 138 H VBG pH Oxyhemoglobin Carboxyhemoglobin 1.6 H Sodium Potassium Chloride Carbon Dioxide BUN Creatinine Glucose POC Glucose 140 H Lactic Acid Calcium Phosphorus Magnesium Total Bilirubin AST ALT Ammonia Lactate Dehydrogenase Total Creatine Kinase CK-MB (CK-2) Troponin T NT-Pro-B Natriuret Pep Total Protein Albumin Triglycerides TSH Arterial Blood Glucose 138 H Arterial Blood Ionized Calcium 4.5 L Urine pH Urine WBC (Auto) Urine Creatinine 10/14/20 10/14/20 10/14/20 04:46 05:10 11:11 WBC RBC Hgb Hct RDW Lymph % (Auto) [place] % (Auto) Lymph # (Auto) [place] # (Auto) Seg Neutrophils % Lymphocytes % (Manual) Monocytes % (Manual) Seg Neutrophils # Seg Neutrophils # Man Lymphocytes # (Manual) Monocytes # (Manual) D-Dimer Heparin Anti-Xa Level ABG pH POC ABG pCO2 POC ABG pO2 ABG pO2 ABG HCO3 ABG O2 Saturation ABG Base Excess ABG Hemoglobin ABG Oxyhemoglobin ABG Sodium ABG Potassium ABG Chloride ABG Glucose VBG pH Oxyhemoglobin Carboxyhemoglobin Sodium 152 H Potassium 3.5 L Chloride Carbon Dioxide 38 H D BUN 46 H Creatinine 2.3 H Glucose 127 H POC Glucose 116 H 114 H Lactic Acid Calcium Phosphorus Magnesium Total Bilirubin AST ALT Ammonia Lactate Dehydrogenase Total Creatine Kinase CK-MB (CK-2) Troponin T NT-Pro-B Natriuret Pep Total Protein Albumin Triglycerides TSH Arterial Blood Glucose Arterial Blood Ionized Calcium Urine pH Urine WBC (Auto) Urine Creatinine 10/14/20 10/14/20 10/15/20 18:53 23:23 04:12 WBC RBC Hgb Hct RDW Lymph % (Auto) [place] % (Auto) Lymph # (Auto) [place] # (Auto) Seg Neutrophils % Lymphocytes % (Manual) Monocytes % (Manual) Seg Neutrophils # Seg Neutrophils # Man Lymphocytes # (Manual) Monocytes # (Manual) D-Dimer Heparin Anti-Xa Level ABG pH POC ABG pCO2 POC ABG pO2 ABG pO2 ABG HCO3 ABG O2 Saturation ABG Base Excess ABG Hemoglobin ABG Oxyhemoglobin ABG Sodium ABG Potassium ABG Chloride ABG Glucose VBG pH Oxyhemoglobin Carboxyhemoglobin Sodium 149 H Potassium 3.2 L Chloride Carbon Dioxide 37 H BUN 40 H Creatinine 2.0 H Glucose 124 H POC Glucose 128 H 113 H Lactic Acid Calcium Phosphorus Magnesium Total Bilirubin AST ALT Ammonia Lactate Dehydrogenase Total Creatine Kinase CK-MB (CK-2) Troponin T NT-Pro-B Natriuret Pep Total Protein Albumin Triglycerides TSH Arterial Blood Glucose Arterial Blood Ionized Calcium Urine pH Urine WBC (Auto) Urine Creatinine 10/15/20 10/15/20 10/15/20 04:22 11:39 17:36 WBC RBC Hgb Hct RDW Lymph % (Auto) [place] % (Auto) Lymph # (Auto) [place] # (Auto) Seg Neutrophils % Lymphocytes % (Manual) Monocytes % (Manual) Seg Neutrophils # Seg Neutrophils # Man Lymphocytes # (Manual) Monocytes # (Manual) D-Dimer Heparin Anti-Xa Level ABG pH POC ABG pCO2 POC ABG pO2 ABG pO2 115.0 H ABG HCO3 38.1 H ABG O2 Saturation ABG Base Excess 11.3 H ABG Hemoglobin 11.0 L ABG Oxyhemoglobin ABG Sodium ABG Potassium ABG Chloride ABG Glucose VBG pH Oxyhemoglobin Carboxyhemoglobin Sodium Potassium Chloride Carbon Dioxide BUN Creatinine Glucose POC Glucose 123 H 118 H Lactic Acid Calcium Phosphorus Magnesium Total Bilirubin AST ALT Ammonia Lactate Dehydrogenase Total Creatine Kinase CK-MB (CK-2) Troponin T NT-Pro-B Natriuret Pep Total Protein Albumin Triglycerides TSH Arterial Blood Glucose Arterial Blood Ionized Calcium Urine pH Urine WBC (Auto) Urine Creatinine 10/15/20 10/16/20 10/16/20 23:18 03:13 05:10 WBC RBC Hgb Hct RDW Lymph % (Auto) [place] % (Auto) Lymph # (Auto) [place] # (Auto) Seg Neutrophils % Lymphocytes % (Manual) Monocytes % (Manual) Seg Neutrophils # Seg Neutrophils # Man Lymphocytes # (Manual) Monocytes # (Manual) D-Dimer Heparin Anti-Xa Level ABG pH POC ABG pCO2 POC ABG pO2 ABG pO2 104.5 H ABG HCO3 35.1 H ABG O2 Saturation ABG Base Excess 9.5 H ABG Hemoglobin 7.9 L ABG Oxyhemoglobin ABG Sodium ABG Potassium ABG Chloride ABG Glucose VBG pH Oxyhemoglobin Carboxyhemoglobin Sodium Potassium 3.3 L Chloride Carbon Dioxide 33 H BUN 37 H Creatinine 1.4 H Glucose 148 H POC Glucose 135 H Lactic Acid Calcium Phosphorus Magnesium 2.40 H Total Bilirubin AST ALT Ammonia Lactate Dehydrogenase Total Creatine Kinase CK-MB (CK-2) Troponin T NT-Pro-B Natriuret Pep Total Protein Albumin Triglycerides TSH Arterial Blood Glucose Arterial Blood Ionized Calcium Urine pH Urine WBC (Auto) Urine Creatinine 10/16/20 10/16/20 10/16/20 06:36 11:08 17:07 WBC RBC Hgb Hct RDW Lymph % (Auto) [place] % (Auto) Lymph # (Auto) [place] # (Auto) Seg Neutrophils % Lymphocytes % (Manual) Monocytes % (Manual) Seg Neutrophils # Seg Neutrophils # Man Lymphocytes # (Manual) Monocytes # (Manual) D-Dimer Heparin Anti-Xa Level ABG pH POC ABG pCO2 POC ABG pO2 ABG pO2 ABG HCO3 ABG O2 Saturation ABG Base Excess ABG Hemoglobin ABG Oxyhemoglobin ABG Sodium ABG Potassium ABG Chloride ABG Glucose VBG pH Oxyhemoglobin Carboxyhemoglobin Sodium Potassium Chloride Carbon Dioxide BUN Creatinine Glucose POC Glucose 150 H 111 H 132 H Lactic Acid Calcium Phosphorus Magnesium Total Bilirubin AST ALT Ammonia Lactate Dehydrogenase Total Creatine Kinase CK-MB (CK-2) Troponin T NT-Pro-B Natriuret Pep Total Protein Albumin Triglycerides TSH Arterial Blood Glucose Arterial Blood Ionized Calcium Urine pH Urine WBC (Auto) Urine Creatinine 10/16/20 10/17/20 10/17/20 23:38 03:32 03:32 WBC RBC Hgb Hct RDW Lymph % (Auto) [place] % (Auto) Lymph # (Auto) [place] # (Auto) Seg Neutrophils % Lymphocytes % (Manual) Monocytes % (Manual) Seg Neutrophils # Seg Neutrophils # Man Lymphocytes # (Manual) Monocytes # (Manual) D-Dimer Heparin Anti-Xa Level ABG pH POC ABG pCO2 POC ABG pO2 ABG pO2 ABG HCO3 ABG O2 Saturation ABG Base Excess ABG Hemoglobin ABG Oxyhemoglobin ABG Sodium ABG Potassium ABG Chloride ABG Glucose VBG pH Oxyhemoglobin Carboxyhemoglobin Sodium 146 H Potassium Chloride Carbon Dioxide 32 H BUN 57 H Creatinine 2.4 H D Glucose 124 H POC Glucose 117 H Lactic Acid Calcium Phosphorus 5.20 H D Magnesium Total Bilirubin AST ALT Ammonia Lactate Dehydrogenase Total Creatine Kinase CK-MB (CK-2) Troponin T NT-Pro-B Natriuret Pep Total Protein Albumin Triglycerides TSH Arterial Blood Glucose Arterial Blood Ionized Calcium Urine pH Urine WBC (Auto) Urine Creatinine 10/17/20 10/17/20 10/18/20 05:10 17:33 00:13 WBC RBC Hgb Hct RDW Lymph % (Auto) [place] % (Auto) Lymph # (Auto) [place] # (Auto) Seg Neutrophils % Lymphocytes % (Manual) Monocytes % (Manual) Seg Neutrophils # Seg Neutrophils # Man Lymphocytes # (Manual) Monocytes # (Manual) D-Dimer Heparin Anti-Xa Level ABG pH POC ABG pCO2 POC ABG pO2 ABG pO2 ABG HCO3 ABG O2 Saturation ABG Base Excess ABG Hemoglobin ABG Oxyhemoglobin ABG Sodium ABG Potassium ABG Chloride ABG Glucose VBG pH Oxyhemoglobin Carboxyhemoglobin Sodium Potassium Chloride Carbon Dioxide BUN Creatinine Glucose POC Glucose 122 H 121 H 23 L Lactic Acid Calcium Phosphorus Magnesium Total Bilirubin AST ALT Ammonia Lactate Dehydrogenase Total Creatine Kinase CK-MB (CK-2) Troponin T NT-Pro-B Natriuret Pep Total Protein Albumin Triglycerides TSH Arterial Blood Glucose Arterial Blood Ionized Calcium Urine pH Urine WBC (Auto) Urine Creatinine 10/18/20 10/18/20 10/18/20 00:16 03:27 03:27 WBC RBC Hgb 11.7 L Hct RDW Lymph % (Auto) [place] % (Auto) Lymph # (Auto) [place] # (Auto) Seg Neutrophils % Lymphocytes % (Manual) Monocytes % (Manual) Seg Neutrophils # Seg Neutrophils # Man Lymphocytes # (Manual) Monocytes # (Manual) D-Dimer Heparin Anti-Xa Level ABG pH POC ABG pCO2 POC ABG pO2 ABG pO2 ABG HCO3 ABG O2 Saturation ABG Base Excess ABG Hemoglobin ABG Oxyhemoglobin ABG Sodium ABG Potassium ABG Chloride ABG Glucose VBG pH Oxyhemoglobin Carboxyhemoglobin Sodium Potassium Chloride 97.6 L Carbon Dioxide BUN 90 H Creatinine 3.3 H Glucose 146 H POC Glucose 134 H Lactic Acid Calcium Phosphorus Magnesium Total Bilirubin 1.70 H AST ALT Ammonia Lactate Dehydrogenase Total Creatine Kinase CK-MB (CK-2) Troponin T NT-Pro-B Natriuret Pep Total Protein Albumin 3.1 L Triglycerides TSH Arterial Blood Glucose Arterial Blood Ionized Calcium Urine pH Urine WBC (Auto) Urine Creatinine 10/18/20 10/18/20 10/18/20 05:09 11:19 17:15 WBC RBC Hgb Hct RDW Lymph % (Auto) [place] % (Auto) Lymph # (Auto) [place] # (Auto) Seg Neutrophils % Lymphocytes % (Manual) Monocytes % (Manual) Seg Neutrophils # Seg Neutrophils # Man Lymphocytes # (Manual) Monocytes # (Manual) D-Dimer Heparin Anti-Xa Level ABG pH POC ABG pCO2 POC ABG pO2 ABG pO2 ABG HCO3 ABG O2 Saturation ABG Base Excess ABG Hemoglobin ABG Oxyhemoglobin ABG Sodium ABG Potassium ABG Chloride ABG Glucose VBG pH Oxyhemoglobin Carboxyhemoglobin Sodium Potassium Chloride Carbon Dioxide BUN Creatinine Glucose POC Glucose 144 H 145 H 151 H Lactic Acid Calcium Phosphorus Magnesium Total Bilirubin AST ALT Ammonia Lactate Dehydrogenase Total Creatine Kinase CK-MB (CK-2) Troponin T NT-Pro-B Natriuret Pep Total Protein Albumin Triglycerides TSH Arterial Blood Glucose Arterial Blood Ionized Calcium Urine pH Urine WBC (Auto) Urine Creatinine 10/18/20 10/18/20 10/19/20 23:16 Unknown 04:55 WBC RBC Hgb Hct RDW Lymph % (Auto) [place] % (Auto) Lymph # (Auto) [place] # (Auto) Seg Neutrophils % Lymphocytes % (Manual) Monocytes % (Manual) Seg Neutrophils # Seg Neutrophils # Man Lymphocytes # (Manual) Monocytes # (Manual) D-Dimer Heparin Anti-Xa Level ABG pH POC ABG pCO2 POC ABG pO2 ABG pO2 ABG HCO3 ABG O2 Saturation ABG Base Excess ABG Hemoglobin ABG Oxyhemoglobin ABG Sodium ABG Potassium ABG Chloride ABG Glucose VBG pH Oxyhemoglobin Carboxyhemoglobin Sodium Potassium Chloride Carbon Dioxide BUN 104 H Creatinine 3.1 H Glucose 139 H POC Glucose 123 H Lactic Acid Calcium Phosphorus Magnesium Total Bilirubin AST ALT Ammonia Lactate Dehydrogenase Total Creatine Kinase CK-MB (CK-2) Troponin T NT-Pro-B Natriuret Pep Total Protein Albumin Triglycerides TSH Arterial Blood Glucose Arterial Blood Ionized Calcium Urine pH Urine WBC (Auto) 115.0 H Urine Creatinine 10/19/20 10/19/20 10/19/20 04:55 11:35 13:14 WBC 15.1 H RBC Hgb 11.1 L Hct 34.4 L RDW Lymph % (Auto) 4.2 L [place] % (Auto) 11.9 H Lymph # (Auto) 0.6 L [place] # (Auto) 1.8 H Seg Neutrophils % 82.0 H Lymphocytes % (Manual) Monocytes % (Manual) Seg Neutrophils # 12.4 H Seg Neutrophils # Man Lymphocytes # (Manual) Monocytes # (Manual) D-Dimer Heparin Anti-Xa Level ABG pH POC ABG pCO2 POC ABG pO2 ABG pO2 ABG HCO3 ABG O2 Saturation ABG Base Excess ABG Hemoglobin ABG Oxyhemoglobin ABG Sodium ABG Potassium ABG Chloride ABG Glucose VBG pH Oxyhemoglobin Carboxyhemoglobin Sodium Potassium Chloride Carbon Dioxide BUN Creatinine Glucose POC Glucose 136 H Lactic Acid Calcium Phosphorus Magnesium Total Bilirubin AST ALT Ammonia Lactate Dehydrogenase Total Creatine Kinase CK-MB (CK-2) Troponin T NT-Pro-B Natriuret Pep Total Protein Albumin Triglycerides TSH Arterial Blood Glucose Arterial Blood Ionized Calcium Urine pH Urine WBC (Auto) Urine Creatinine 93.7 H 10/19/20 10/19/20 10/20/20 17:53 23:39 04:30 WBC RBC Hgb Hct RDW Lymph % (Auto) [place] % (Auto) Lymph # (Auto) [place] # (Auto) Seg Neutrophils % Lymphocytes % (Manual) Monocytes % (Manual) Seg Neutrophils # Seg Neutrophils # Man Lymphocytes # (Manual) Monocytes # (Manual) D-Dimer Heparin Anti-Xa Level ABG pH POC ABG pCO2 POC ABG pO2 ABG pO2 ABG HCO3 ABG O2 Saturation ABG Base Excess ABG Hemoglobin ABG Oxyhemoglobin ABG Sodium ABG Potassium ABG Chloride ABG Glucose VBG pH Oxyhemoglobin Carboxyhemoglobin Sodium Potassium Chloride Carbon Dioxide BUN 104 H Creatinine 2.8 H Glucose 151 H POC Glucose 137 H 133 H Lactic Acid Calcium Phosphorus Magnesium Total Bilirubin AST ALT Ammonia Lactate Dehydrogenase Total Creatine Kinase CK-MB (CK-2) Troponin T NT-Pro-B Natriuret Pep Total Protein Albumin Triglycerides TSH Arterial Blood Glucose Arterial Blood Ionized Calcium Urine pH Urine WBC (Auto) Urine Creatinine 10/20/20 10/20/20 10/20/20 04:30 05:38 11:34 WBC 17.9 H RBC Hgb 11.7 L Hct RDW Lymph % (Auto) [place] % (Auto) Lymph # (Auto) [place] # (Auto) Seg Neutrophils % Lymphocytes % (Manual) Monocytes % (Manual) Seg Neutrophils # Seg Neutrophils # Man Lymphocytes # (Manual) Monocytes # (Manual) D-Dimer Heparin Anti-Xa Level ABG pH POC ABG pCO2 POC ABG pO2 ABG pO2 ABG HCO3 ABG O2 Saturation ABG Base Excess ABG Hemoglobin ABG Oxyhemoglobin ABG Sodium ABG Potassium ABG Chloride ABG Glucose VBG pH Oxyhemoglobin Carboxyhemoglobin Sodium Potassium Chloride Carbon Dioxide BUN Creatinine Glucose POC Glucose 164 H 148 H Lactic Acid Calcium Phosphorus Magnesium Total Bilirubin AST ALT Ammonia Lactate Dehydrogenase Total Creatine Kinase CK-MB (CK-2) Troponin T NT-Pro-B Natriuret Pep Total Protein Albumin Triglycerides TSH Arterial Blood Glucose Arterial Blood Ionized Calcium Urine pH Urine WBC (Auto) Urine Creatinine 10/20/20 10/20/20 10/20/20 17:40 20:20 23:29 WBC RBC Hgb Hct RDW Lymph % (Auto) [place] % (Auto) Lymph # (Auto) [place] # (Auto) Seg Neutrophils % Lymphocytes % (Manual) Monocytes % (Manual) Seg Neutrophils # Seg Neutrophils # Man Lymphocytes # (Manual) Monocytes # (Manual) D-Dimer Heparin Anti-Xa Level ABG pH 7.292 L POC ABG pCO2 68.5 H POC ABG pO2 ABG pO2 ABG HCO3 ABG O2 Saturation ABG Base Excess ABG Hemoglobin 11.6 L ABG Oxyhemoglobin ABG Sodium ABG Potassium ABG Chloride ABG Glucose 145 H VBG pH Oxyhemoglobin Carboxyhemoglobin Sodium Potassium Chloride Carbon Dioxide BUN Creatinine Glucose POC Glucose 130 H 136 H Lactic Acid Calcium Phosphorus Magnesium Total Bilirubin AST ALT Ammonia Lactate Dehydrogenase Total Creatine Kinase CK-MB (CK-2) Troponin T NT-Pro-B Natriuret Pep Total Protein Albumin Triglycerides TSH Arterial Blood Glucose 145 H Arterial Blood Ionized Calcium Urine pH Urine WBC (Auto) Urine Creatinine 10/21/20 10/21/20 10/21/20 04:20 06:26 06:30 WBC RBC Hgb Hct RDW Lymph % (Auto) [place] % (Auto) Lymph # (Auto) [place] # (Auto) Seg Neutrophils % Lymphocytes % (Manual) Monocytes % (Manual) Seg Neutrophils # Seg Neutrophils # Man Lymphocytes # (Manual) Monocytes # (Manual) D-Dimer Heparin Anti-Xa Level ABG pH 7.262 L POC ABG pCO2 72.4 H POC ABG pO2 81.6 L ABG pO2 ABG HCO3 ABG O2 Saturation ABG Base Excess ABG Hemoglobin 11.6 L ABG Oxyhemoglobin ABG Sodium ABG Potassium ABG Chloride ABG Glucose 140 H VBG pH Oxyhemoglobin Carboxyhemoglobin Sodium Potassium Chloride Carbon Dioxide 33 H BUN 104 H Creatinine 2.9 H Glucose 153 H POC Glucose 128 H Lactic Acid Calcium Phosphorus Magnesium Total Bilirubin AST ALT Ammonia Lactate Dehydrogenase Total Creatine Kinase CK-MB (CK-2) Troponin T NT-Pro-B Natriuret Pep Total Protein Albumin Triglycerides TSH Arterial Blood Glucose 140 H Arterial Blood Ionized Calcium Urine pH Urine WBC (Auto) Urine Creatinine 10/21/20 10/21/20 10/21/20 06:30 11:24 17:21 WBC 13.3 H RBC Hgb 10.7 L Hct 32.7 L RDW Lymph % (Auto) [place] % (Auto) Lymph # (Auto) [place] # (Auto) Seg Neutrophils % Lymphocytes % (Manual) Monocytes % (Manual) Seg Neutrophils # Seg Neutrophils # Man Lymphocytes # (Manual) Monocytes # (Manual) D-Dimer Heparin Anti-Xa Level ABG pH POC ABG pCO2 POC ABG pO2 ABG pO2 ABG HCO3 ABG O2 Saturation ABG Base Excess ABG Hemoglobin ABG Oxyhemoglobin ABG Sodium ABG Potassium ABG Chloride ABG Glucose VBG pH Oxyhemoglobin Carboxyhemoglobin Sodium Potassium Chloride Carbon Dioxide BUN Creatinine Glucose POC Glucose 178 H 138 H Lactic Acid Calcium Phosphorus Magnesium Total Bilirubin AST ALT Ammonia Lactate Dehydrogenase Total Creatine Kinase CK-MB (CK-2) Troponin T NT-Pro-B Natriuret Pep Total Protein Albumin Triglycerides TSH Arterial Blood Glucose Arterial Blood Ionized Calcium Urine pH Urine WBC (Auto) Urine Creatinine 10/22/20 10/22/20 10/22/20 00:05 04:30 06:15 WBC RBC Hgb Hct RDW Lymph % (Auto) [place] % (Auto) Lymph # (Auto) [place] # (Auto) Seg Neutrophils % Lymphocytes % (Manual) Monocytes % (Manual) Seg Neutrophils # Seg Neutrophils # Man Lymphocytes # (Manual) Monocytes # (Manual) D-Dimer Heparin Anti-Xa Level ABG pH 7.225 L POC ABG pCO2 76.6 H POC ABG pO2 ABG pO2 ABG HCO3 ABG O2 Saturation ABG Base Excess ABG Hemoglobin 11.1 L ABG Oxyhemoglobin ABG Sodium ABG Potassium ABG Chloride ABG Glucose 151 H VBG pH Oxyhemoglobin Carboxyhemoglobin Sodium Potassium Chloride Carbon Dioxide 32 H BUN 103 H Creatinine 2.7 H Glucose 151 H POC Glucose 135 H Lactic Acid Calcium Phosphorus Magnesium Total Bilirubin AST ALT Ammonia Lactate Dehydrogenase Total Creatine Kinase CK-MB (CK-2) Troponin T NT-Pro-B Natriuret Pep Total Protein Albumin Triglycerides TSH Arterial Blood Glucose 151 H Arterial Blood Ionized Calcium Urine pH Urine WBC (Auto) Urine Creatinine 10/22/20 10/22/20 10/22/20 06:18 11:34 11:44 WBC RBC Hgb Hct RDW Lymph % (Auto) [place] % (Auto) Lymph # (Auto) [place] # (Auto) Seg Neutrophils % Lymphocytes % (Manual) Monocytes % (Manual) Seg Neutrophils # Seg Neutrophils # Man Lymphocytes # (Manual) Monocytes # (Manual) D-Dimer Heparin Anti-Xa Level ABG pH 7.278 L POC ABG pCO2 67.8 H POC ABG pO2 ABG pO2 ABG HCO3 ABG O2 Saturation ABG Base Excess ABG Hemoglobin 10.2 L ABG Oxyhemoglobin ABG Sodium ABG Potassium ABG Chloride ABG Glucose 172 H VBG pH Oxyhemoglobin Carboxyhemoglobin Sodium Potassium Chloride Carbon Dioxide BUN Creatinine Glucose POC Glucose 137 H 147 H Lactic Acid Calcium Phosphorus Magnesium Total Bilirubin AST ALT Ammonia Lactate Dehydrogenase Total Creatine Kinase CK-MB (CK-2) Troponin T NT-Pro-B Natriuret Pep Total Protein Albumin Triglycerides TSH Arterial Blood Glucose 172 H Arterial Blood Ionized Calcium Urine pH Urine WBC (Auto) Urine Creatinine 10/22/20 10/22/20 10/23/20 17:40 23:55 05:11 WBC RBC Hgb Hct RDW Lymph % (Auto) [place] % (Auto) Lymph # (Auto) [place] # (Auto) Seg Neutrophils % Lymphocytes % (Manual) Monocytes % (Manual) Seg Neutrophils # Seg Neutrophils # Man Lymphocytes # (Manual) Monocytes # (Manual) D-Dimer Heparin Anti-Xa Level ABG pH POC ABG pCO2 63.6 H POC ABG pO2 81.2 L ABG pO2 ABG HCO3 ABG O2 Saturation ABG Base Excess ABG Hemoglobin 10.6 L ABG Oxyhemoglobin ABG Sodium ABG Potassium ABG Chloride 109.0 H ABG Glucose 149 H VBG pH Oxyhemoglobin Carboxyhemoglobin Sodium Potassium Chloride Carbon Dioxide BUN Creatinine Glucose POC Glucose 141 H 139 H Lactic Acid Calcium Phosphorus Magnesium Total Bilirubin AST ALT Ammonia Lactate Dehydrogenase Total Creatine Kinase CK-MB (CK-2) Troponin T NT-Pro-B Natriuret Pep Total Protein Albumin Triglycerides TSH Arterial Blood Glucose 149 H Arterial Blood Ionized Calcium Urine pH Urine WBC (Auto) Urine Creatinine 10/23/20 10/23/20 05:39 06:00 WBC RBC Hgb Hct RDW Lymph % (Auto) [place] % (Auto) Lymph # (Auto) [place] # (Auto) Seg Neutrophils % Lymphocytes % (Manual) Monocytes % (Manual) Seg Neutrophils # Seg Neutrophils # Man Lymphocytes # (Manual) Monocytes # (Manual) D-Dimer Heparin Anti-Xa Level ABG pH POC ABG pCO2 POC ABG pO2 ABG pO2 ABG HCO3 ABG O2 Saturation ABG Base Excess ABG Hemoglobin ABG Oxyhemoglobin ABG Sodium ABG Potassium ABG Chloride ABG Glucose VBG pH Oxyhemoglobin Carboxyhemoglobin Sodium 146 H Potassium Chloride Carbon Dioxide 35 H BUN 92 H Creatinine 2.0 H Glucose 144 H POC Glucose 139 H Lactic Acid Calcium Phosphorus Magnesium Total Bilirubin AST ALT Ammonia Lactate Dehydrogenase Total Creatine Kinase CK-MB (CK-2) Troponin T NT-Pro-B Natriuret Pep Total Protein Albumin Triglycerides TSH Arterial Blood Glucose Arterial Blood Ionized Calcium Urine pH Urine WBC (Auto) Urine Creatinine Allied health notes reviewed: RT
--- NOTE | 2020-10-23 11:34 | Progress Note ---
Assessment and Plan Cardiopulmonary arrest/Pulseless after COVID vaccination Severe Sepsis Acute respiratory failure/Bilateral Pneumonia/Aspiration/+MRSA aspirate MOE (acute kidney injury) Persistent Fevers Leukocytosis Hypoxic encephalopathy/?Seizure NSTEMI Type II Hypertension History of Asthma Obesity ECHO 10/10/20: EF 55-60%, mod LVH, grade I diastolic dysfunction Tele: sinus 62 bpm BP stable, agree with clonidine patch/hydralazine 50 TID, metoprolol 100 TID currently in sinus rhythm Subjective Date of service: 10/23/20 Principal diagnosis: Cardiac arrest; Septic Shock; Ac. hypoxemic & hypercapnic resp failure; MOE Interval history: Pt intubated and sedated Objective Vital Signs Temp Pulse Pulse Resp BP Pulse Ox 10/23/20 11:03 81 18 127/68 99 10/23/20 11:00 81 17 117/69 99 10/23/20 10:30 75 23 168/104 98 10/23/20 10:00 80 24 132/87 98 10/23/20 09:30 69 15 142/81 98 10/23/20 09:00 67 15 132/72 98 10/23/20 08:30 68 15 136/77 97 10/23/20 08:00 76 69 14 133/79 97 10/23/20 07:48 84 135/76 10/23/20 07:33 77 203/101 97 10/23/20 07:30 82 14 142/82 98 10/23/20 07:21 98.4 F 10/23/20 07:00 79 14 142/83 98 10/23/20 06:30 74 13 133/69 98 10/23/20 06:00 71 12 139/78 99 10/23/20 05:30 65 16 121/67 98 10/23/20 05:11 69 173/89 98 10/23/20 05:00 68 16 119/49 98 10/23/20 04:30 70 16 113/57 99 10/23/20 04:00 98.6 F 67 67 16 152/103 98 10/23/20 03:30 68 16 119/65 99 10/23/20 03:00 72 16 108/54 98 10/23/20 02:30 65 16 107/62 99 10/23/20 02:00 68 16 115/52 98 10/23/20 01:30 69 16 126/75 97 10/23/20 01:00 67 15 107/57 99 10/23/20 00:30 66 16 111/56 100 10/23/20 00:12 67 113/59 98 10/23/20 00:00 99.1 F 64 66 16 117/57 99 10/22/20 23:30 65 16 113/59 99 10/22/20 23:00 71 16 111/60 95 10/22/20 22:42 64 16 112/60 98 10/22/20 22:30 66 16 112/60 98 10/22/20 22:00 70 16 125/67 98 10/22/20 21:30 71 16 123/75 99 10/22/20 21:00 72 16 130/68 98 10/22/20 20:30 74 13 145/73 98 10/22/20 20:26 72 151/91 98 10/22/20 20:00 99.0 F 75 73 16 129/69 95 10/22/20 19:30 73 17 153/82 98 10/22/20 19:00 80 22 156/122 98 10/22/20 16:14 98.5 F 10/22/20 16:01 79 19 171/84 97 10/22/20 16:00 96 10/22/20 15:31 75 14 157/79 98 10/22/20 15:30 76 150/73 10/22/20 15:01 87 18 162/96 98 10/22/20 15:00 83 19 178/83 98 10/22/20 14:31 79 19 161/82 100 10/22/20 14:01 81 20 169/98 100 10/22/20 13:31 77 19 175/82 99 10/22/20 13:01 76 18 169/94 100 10/22/20 12:31 77 18 171/102 98 10/22/20 12:09 98.9 F 10/22/20 12:01 70 18 158/97 99 10/22/20 12:00 96 - Physical Examination General: Other (intubated) HEENT: Positive: Normocephaly Neck: Positive: neck supple, trachea midline Cardiac: Positive: Reg Rate and Rhythm Lungs: Positive: Normal Exam, clear to auscultation Neuro: Positive: Other (intubated) Abdomen: Positive: Soft, Active Bowel Sounds Skin: Negative: Rash Extremities: Present: lower extr. pulses. Absent: edema - Labs and Meds Comprehensive Metabolic Panel 10/23/20 Range/Units 06:00 Sodium 146 H (137-145) mmol/L Potassium 3.8 (3.6-5.0) mmol/L Chloride 106.4 (98-107) mmol/L Carbon Dioxide 35 H (22-30) mmol/L BUN 92 H (9-20) mg/dL Creatinine 2.0 H (0.8-1.3) mg/dL Glucose 144 H (75-100) mg/dL Calcium 9.6 (8.4-10.2) mg/dL - Imaging and Cardiology EKG: report reviewed, image reviewed Echo: report reviewed (10/10/2020 - mod LVH, EF 55-60%, mild diastolic dysfunction) - EKG Sinus rhythms and dysrhythmias: sinus rhythm Repolarization changes or abnormalities: ST suggestive of injury, Q-T interval prolongation - Allied health notes Allied health notes reviewed: RT
--- NOTE | 2020-10-23 11:44 | Progress Note ---
Assessment and Plan 1. Acute kidney injury: Vasomotor MOE in the setting of Cardiac arrest and shock. Renal US negative for hydro. Monitor renal function. BUN and Creatinine level improving. Multiple bladder scan showed no retention. Avoid nephrotoxic agents. Meds dosage based on GFR. Monitor for [employer] needs. 2. FEN: Volume overload, improved, monitor. Hypernatremia, monitor. On Tube feeding. Monitor lytes and volume status. 3. Acute hypoxic respiratory failure, POA: 2/2 PNA and CHF. COVID test negative. Intubated on vent. 4. Sepsis, POA: 2/2 PNA. Abx. 5. NSTEMI type II: Post cardiac arrest EKG showed no acute ischemic changes. Followed by Cards. 6. Acute CHF: Echo showed Normal EF and mild DD. 7. S/p Cardiac arrest. 8. A.fib / A.flutter: Metoprolol. 9. Anoxic encephalopathy: Followed by Neuro. 10. GI bleed: Seen by GI. 11. Elevated Transaminases: Improved. 12. HTN: Monitor. Adjust meds as needed. Subjective: Patient was seen and examined at the bedside. Objective: General appearance: well-developed, appears stated age, intubated, on vent HEENT: ATNC, pupils equal Neck: trachea midline Respiratory: ctab Heart: regular, S1S2, no murmur Gastrointestinal: soft, normoactive bowel sounds, not tender Integumentary: no rash, warm and dry Ext: trace extremity edema Neurologic: not responding Musculoskeletal: no obvious deformity Subjective Date of service: 10/23/20 Principal diagnosis: Cardiac arrest; Septic Shock; Ac. hypoxemic & hypercapnic resp failure; MOE Objective - Vital Signs Vital signs: Vital Signs - 12hr 10/23/20 10/23/20 10/23/20 00:00 00:12 00:30 Temperature 99.1 F Pulse Rate 64 67 66 Pulse Rate [ 66 From Monitor] Respiratory 16 16 Rate Blood Pressure 117/57 113/59 111/56 O2 Sat by Pulse 99 98 100 Oximetry 10/23/20 10/23/20 10/23/20 01:00 01:30 02:00 Temperature Pulse Rate 67 69 68 Pulse Rate [ From Monitor] Respiratory 15 16 16 Rate Blood Pressure 107/57 126/75 115/52 O2 Sat by Pulse 99 97 98 Oximetry 10/23/20 10/23/20 10/23/20 02:30 03:00 03:30 Temperature Pulse Rate 65 72 68 Pulse Rate [ From Monitor] Respiratory 16 16 16 Rate Blood Pressure 107/62 108/54 119/65 O2 Sat by Pulse 99 98 99 Oximetry 10/23/20 10/23/20 10/23/20 04:00 04:30 05:00 Temperature 98.6 F Pulse Rate 67 70 68 Pulse Rate [ 67 From Monitor] Respiratory 16 16 16 Rate Blood Pressure 152/103 113/57 119/49 O2 Sat by Pulse 98 99 98 Oximetry 10/23/20 10/23/20 10/23/20 05:11 05:30 06:00 Temperature Pulse Rate 69 65 71 Pulse Rate [ From Monitor] Respiratory 16 12 Rate Blood Pressure 173/89 121/67 139/78 O2 Sat by Pulse 98 98 99 Oximetry 10/23/20 10/23/20 10/23/20 06:30 07:00 07:21 Temperature 98.4 F Pulse Rate 74 79 Pulse Rate [ From Monitor] Respiratory 13 14 Rate Blood Pressure 133/69 142/83 O2 Sat by Pulse 98 98 Oximetry 10/23/20 10/23/20 10/23/20 07:30 07:33 07:48 Temperature Pulse Rate 82 77 84 Pulse Rate [ From Monitor] Respiratory 14 Rate Blood Pressure 142/82 203/101 135/76 O2 Sat by Pulse 98 97 Oximetry 10/23/20 10/23/20 10/23/20 08:00 08:30 09:00 Temperature Pulse Rate 76 68 67 Pulse Rate [ 69 From Monitor] Respiratory 14 15 15 Rate Blood Pressure 133/79 136/77 132/72 O2 Sat by Pulse 97 97 98 Oximetry 10/23/20 10/23/20 10/23/20 09:30 10:00 10:30 Temperature Pulse Rate 69 80 75 Pulse Rate [ From Monitor] Respiratory 15 24 23 Rate Blood Pressure 142/81 132/87 168/104 O2 Sat by Pulse 98 98 98 Oximetry 10/23/20 10/23/20 11:00 11:03 Temperature Pulse Rate 81 81 Pulse Rate [ From Monitor] Respiratory 17 18 Rate Blood Pressure 117/69 127/68 O2 Sat by Pulse 99 99 Oximetry - Lab 10/21/20 06:30 10/23/20 06:00 Most recent lab results ABG pH 7.334 (7.320-7.450) 10/23/20 05:11 ABG pCO2 55.5 mm Hg 10/16/20 05:10 ABG pO2 104.5 mm Hg (80.0-90.0) H 10/16/20 05:10 ABG HCO3 35.1 mmol/L (20.0-26.0) H 10/16/20 05:10 ABG O2 Saturation 96.0 (0-100) 10/23/20 05:11 Calcium 9.6 mg/dL (8.4-10.2) 10/23/20 06:00 Phosphorus 5.20 mg/dL (2.5-4.5) H D 10/17/20 03:32 Magnesium 2.30 mg/dL (1.7-2.3) 10/17/20 03:32 Urine Creatinine 93.7 mg/dL (0.1-20.0) H 10/19/20 13:14 Urine Sodium 25 mmol/L 10/19/20 13:14 Medications & Allergies - Medications Allergies/Adverse Reactions: Allergies No Known Allergies Allergy (Unverified 07/06/13 15:19) Home Medications: Home Medications Medication Instructions Recorded Confirmed Last Taken Type Colchicine [Colcrys] QDAY 10/21/20 Unknown History Eplerenone [Inspra] 50 mg PO 10/21/20 Unknown History HYDROcodone/APAP 5-325 [[place] 1 each PO Q8HR PRN 10/21/20 10/21/20 Unknown History 5/325] Leflunomide [Arava] 20 mg PO QDAY 10/21/20 10/21/20 3 Weeks Ago History ~09/30/20 20 mg Rosuvastatin (Nf) [Crestor] 20 mg PO QHS 10/21/20 10/21/20 3 Weeks Ago History ~09/30/20 20 mg Torsemide [Demadex] 20 mg PO 10/21/20 Unknown History allopurinoL [Zyloprim] QDAY 10/21/20 Unknown History amLODIPine 5 mg PO BID 10/21/20 10/21/20 3 Weeks Ago History ~09/30/20 5 mg carvediloL [Coreg] 25 mg PO QDAY 10/21/20 10/21/20 3 Weeks Ago History ~09/30/20 25 mg metFORMIN [Glucophage] 500 mg PO QDAY 10/21/20 10/21/20 Unknown History Active Medications: Generic Name Dose Route Start Last Admin Trade Name Freq PRN Reason Stop Dose Admin Acetaminophen 650 mg 10/10/20 21:51 10/20/20 09:11 Acetaminophen 325 Mg Tab PO 650 mg Q4H PRN Administration Pain MILD(1-3)/Fever >100.5/[place] Acetaminophen 650 mg 10/11/20 11:24 10/17/20 17:16 Acetaminophen 650 Mg Rect Supp [place] 650 mg Q6H PRN Administration Fever >101 Albuterol 2.5 mg 10/11/20 13:12 Albuterol 2.5 Mg/3 Ml Nebu IH Q6HRT PRN Shortness Of Breath Lipase/Protease/Amylase 1 each 10/10/20 22:18 Lipase 10,500/Protease 25,000/Amylase 43,750 (Units) Dr Santana FEEDTUBE PRN PRN For Clogged Feeding Tube Clonidine HCl 0.3 mg 10/14/20 15:00 10/21/20 14:05 Clonidine Tts 0.3 Mg/24 Hr Patch TD 0.3 mg Fr PEPITO Administration Docusate Sodium 100 mg 10/16/20 22:00 10/23/20 09:35 Docusate Sodium 100 Mg/10 Ml Oral Liqd PO 100 mg BID PEPITO Administration Fentanyl 50 mcg 10/16/20 14:10 10/23/20 10:53 Fentanyl 100 Mcg/2 Ml Inj IV 50 mcg Q10MIN PRN Administration ANALGESIA Fluticasone Propionate 50 mcg 10/18/20 14:00 10/23/20 09:35 Fluticasone Propionate Nasal [place] 16 Gm NS 50 mcg BID PEPITO Administration Glycopyrrolate 2 mg 10/19/20 14:00 10/23/20 07:49 Glycopyrrolate 1 Mg Tab PO 2 mg Q6H PEPITO Administration Heparin Sodium (Porcine) 5,000 unit 10/11/20 22:00 10/23/20 09:36 Heparin 5,000 Unit/1 Ml Vial SUB-Q 5,000 unit Q12HR PEPITO Administration Hydralazine HCl 5 mg 10/15/20 20:25 10/23/20 07:30 Hydralazine 20 Mg/1 Ml Inj IV 5 mg Q6H PRN Administration Hypertension Hydralazine HCl 50 mg 10/19/20 14:00 10/23/20 05:48 Hydralazine 25 Mg Tab PO 50 mg Q8HR PEPITO Administration Hydromorphone HCl 0.5 mg 10/10/20 21:51 10/15/20 14:45 Hydromorphone 1 Mg/1 Ml Inj IV 0.5 mg Q3H PRN Administration Pain , Severe (7-10) Hydrophilic Ointment 1 applic 10/10/20 10:34 Lip Therapy Vaseline TP Q2HR PRN Dry Lips Propofol 1,000 mg in 100 mls @ 4.23 mls/hr 10/10/20 12:00 10/17/20 00:36 Diprivan 10 Mg/Ml IV 0 mcg/kg/min TITR PEPITO 0 mls/hr Titration Protocol 5 MCG/KG/MIN Nitroglycerin/Dextrose 50 mg in 250 mls @ 3 mls/hr 10/10/20 13:00 10/10/20 13:17 Tridil Drip 50mg/250ml IV 0 mcg/min TITR PEPITO 0 mls/hr Titration Protocol 10 MCG/MIN Norepinephrine 8 mg/ Sodium 250 mls @ 3.75 mls/hr 10/10/20 14:00 10/10/20 22:15 Chloride IV 0 mcg/min TITRATE PEPITO 0 mls/hr Titration Protocol 2 MCG/MIN Levetiracetam 500 mg/ Dextrose 105 mls @ 400 mls/hr 10/13/20 18:00 10/23/20 05:48 IV 400 mls/hr Q12H PEPITO Administration Fentanyl Citrate 2,000 mcg in 100 mls @ 6.175 mls/hr 10/16/20 15:00 10/23/20 08:30 Fentanyl Drip Premix IV 0 mcg/kg/hr TITR PEPITO 0 mls/hr Titration Protocol 1 MCG/KG/HR Linezolid 600 mg in 300 mls @ 300 mls/hr 10/20/20 12:00 10/23/20 09:37 Zyvox 600mg/300ml IV 10/29/20 22:59 300 mls/hr Q12HR PEPITO Administration Protocol Metoclopramide HCl 10 mg 10/10/20 21:51 Metoclopramide 10 Mg/2 Ml Inj IV Q6H PRN Nausea And Vomiting Metoprolol Tartrate 100 mg 10/21/20 14:00 10/23/20 07:48 Metoprolol Tartrate 50 Mg Tab PO 100 mg TID PEPITO Administration Multi-Ingred Cream/Lotion/Oil/Oint 1 applic 10/10/20 10:34 Mineral Oil/Petrolatum, White Ophth Oint 3.5 Gm OU Q4HR PRN Dry Eye(s) Ondansetron HCl 4 mg 10/10/20 21:51 Ondansetron 4 Mg/2 Ml Inj IV Q3H PRN Nausea And Vomiting Pantoprazole Sodium 40 mg 10/12/20 22:00 10/23/20 09:36 Pantoprazole 40 Mg Inj IV 40 mg BID PEPITO Administration Polyethylene Glycol 17 gm 10/17/20 10:00 10/23/20 09:36 Polyethylene Glycol 3350 17 Gm Powder PO 17 gm QDAY PEPITO Administration Scopolamine 1 each 10/17/20 10:00 10/23/20 09:35 Scopolamine Transdermal Patch 72 Hr TD 1 each Q3D PEPITO Administration Simple Syrup 15 ml 10/10/20 22:18 Simple Syrup 15 Ml FEEDTUBE PRN PRN Hypoglycemia Simple Syrup 30 ml 10/10/20 22:18 Simple Syrup 15 Ml FEEDTUBE PRN PRN Hypoglycemia Sodium Bicarbonate 325 mg 10/10/20 22:18 Sodium Bicarbonate 325 Mg Tab FEEDTUBE PRN PRN For Clogged Feeding Tube Sodium Chloride 10 ml 10/10/20 22:00 10/23/20 09:35 Sodium Chloride 0.9% 10 Ml Flush Syringe IV 10 ml BID PEPITO Administration Sodium Chloride 10 ml 10/10/20 21:51 10/21/20 09:56 Sodium Chloride 0.9% 10 Ml Flush Syringe IV 10 ml PRN PRN Administration LINE FLUSH
--- NOTE | 2020-10-23 12:16 | Progress Note ---
Assessment and Plan Cultures: SARS CoV2 PCR: negative. 10/10/2020 blood culture: No growth 10/10/2020 ET aspirate culture: Usual respiratory antonio 10/11/2020 urine culture: no growth 10/18/2020 blood culture: No growth today 10/18/2020 tracheal aspirate date: MRSA 10/20/2020 right nare MRSA A/P: 55-year-old male with hypertension, asthma, obesity came into the emergency room after receiving the Covid vaccine and passing out in the car at the emergency room bay. Patient was found to be unresponsive with no pulse, ACLS was initiated: #Sepsis, likely secondary to pneumonia. COVID negative. No fever for 48 hours, leukocytosis is downtrending, noted right nostril copious purulunce on 10/18-10/20 now resolved. ?sinusitis +/- UTI +/-MRSA pneumonia. #Right-sided pneumonia: Possible aspiration during ACLS. Procalcitonin low. Chest x-ray with persistent lung opacities. Tracheal aspirate now with MRSA. Patient with persistent fever. Completed 9 days of cefepime. #Presumed right sided sinusitis: culture +MRSA, left NGT removed #Acute hypoxic respiratory failure: On mechanical ventilation. #MOE: Renally dose antibiotics. Worsening. Renal on board. #Elevated LFTs: Likely from sepsis #Urine tox screen positive for THC #Acute encephalopathy: neurology on board, evaluation in process. #UTI: Urine culture no growth. Repeat UA with worsening pyuria. Completed 9 days of cefepime. #Encephalopathy: Neurology on board. Recs: -Continue linezolid 600 g IV twice a day total 10 days D4 of 10 -Completed 9 days of cefepime on 10/20/2020 -monitor fever/leukocytosis, improving -hopefully will be extubated soon will follow Kylah Carson MD [facility] ([facility]) Office [phone] Subjective Date of service: 10/23/20 Principal diagnosis: Cardiac arrest; Septic Shock; Ac. hypoxemic & hypercapnic resp failure; MOE Interval history: Remains intubated now on CPAP, no fever for 48h. Denies N/V/D. Objective - Exam Narrative Exam: General appearance: Open eyes, intubated Eyes: anicteric sclerae, moist conjunctivae; no lid-lag; PERRLA HENT: Normocephalic, Atraumatic; normal external ears, oropharynx endotracheal tube in place Neck: supple, tracheal midline, no JVD Lungs: Bilateral rhonchi CV: RRR no murmur Abdomen: Soft, nontender Extremities: no edema, no cyanosis Skin: No rash. Psych: No agitated Neuro: Alert does not follow commands - Constitutional Vitals: Vital Signs Temp Pulse Resp BP Pulse Ox 98.9 F 81 18 127/68 99 10/23/20 12:05 10/23/20 11:03 10/23/20 11:03 10/23/20 11:03 10/23/20 11:03 Temperature -Last 24 Hours Temperature 98.9 F Temperature 98.4 F Temperature 98.6 F Temperature 99.1 F Temperature 99.0 F Temperature 98.5 F - Labs CBC & Chem 7: 10/21/20 06:30 10/23/20 06:00 Labs: Abnormal lab results 10/22/20 10/22/20 10/22/20 Range/Units 04:30 11:34 17:40 ABG pH 7.225 L 7.278 L (7.320-7.450) POC ABG pCO2 76.6 H 67.8 H (32.0-48.0) mmHg POC ABG pO2 (83-108) mmHg ABG Hemoglobin 11.1 L 10.2 L (12.0-17.5) ABG Chloride (98-107) mmol/L ABG Glucose 151 H 172 H (65-95) mg/dL Sodium (137-145) mmol/L Carbon Dioxide (22-30) mmol/L BUN (9-20) mg/dL Creatinine (0.8-1.3) mg/dL Glucose (75-100) mg/dL POC Glucose 141 H (70-105) mg/dL Arterial Blood Glucose 151 H 172 H (65-95) mg/dL 10/22/20 10/23/20 10/23/20 Range/Units 23:55 05:11 05:39 ABG pH (7.320-7.450) POC ABG pCO2 63.6 H (32.0-48.0) mmHg POC ABG pO2 81.2 L (83-108) mmHg ABG Hemoglobin 10.6 L (12.0-17.5) ABG Chloride 109.0 H (98-107) mmol/L ABG Glucose 149 H (65-95) mg/dL Sodium (137-145) mmol/L Carbon Dioxide (22-30) mmol/L BUN (9-20) mg/dL Creatinine (0.8-1.3) mg/dL Glucose (75-100) mg/dL POC Glucose 139 H 139 H (70-105) mg/dL Arterial Blood Glucose 149 H (65-95) mg/dL 10/23/20 Range/Units 06:00 ABG pH (7.320-7.450) POC ABG pCO2 (32.0-48.0) mmHg POC ABG pO2 (83-108) mmHg ABG Hemoglobin (12.0-17.5) ABG Chloride (98-107) mmol/L ABG Glucose (65-95) mg/dL Sodium 146 H (137-145) mmol/L Carbon Dioxide 35 H (22-30) mmol/L BUN 92 H (9-20) mg/dL Creatinine 2.0 H (0.8-1.3) mg/dL Glucose 144 H (75-100) mg/dL POC Glucose (70-105) mg/dL Arterial Blood Glucose (65-95) mg/dL
[2020-10-24] MEDS: fentaNYL DRIP Premix 2,000 MCG/100 ML BAG IV SCH ×2 (00:15→14:16)
[2020-10-24] MEDS: GLYCOPYRROLATE 1 MG TAB PO SCH ×4 (02:10→19:29)
[2020-10-24] MEDS: levETIRAcetam 500 MG in DEXTROSE 5% IN WATER 100 ML IV SCH ×2 (05:19→17:49)
[2020-10-24] MEDS: hydrALAZINE 25 MG TAB PO SCH ×4 (05:20→21:16)
[2020-10-24 06:49] LABS: Calcium 9.8 mg/dL (8.4-10.2)
[2020-10-24] MEDS: METOPROLOL TARTRATE 50 MG TAB PO SCH ×3 (08:10→19:29)
[2020-10-24] MEDS: hydrALAZINE 20 MG/1 ML INJ IV PRN (08:20)
--- NOTE | 2020-10-24 09:24 | Progress Note ---
Assessment and Plan 1. Acute kidney injury: Vasomotor MOE in the setting of Cardiac arrest and shock. Renal US negative for hydro. Monitor renal function. BUN and Creatinine level improving. Multiple bladder scan showed no retention. Avoid nephrotoxic agents. Meds dosage based on GFR. Monitor for [employer] WORK[employer] needs. 2. FEN: Volume overload, improved, monitor. Hypernatremia, monitor. On Tube feeding. Monitor lytes and volume status. 3. Acute hypoxic respiratory failure, POA: 2/2 PNA and CHF. COVID test negative. Intubated on vent. 4. Sepsis, POA: 2/2 PNA. Abx. 5. NSTEMI type II: Post cardiac arrest EKG showed no acute ischemic changes. Followed by Cards. 6. Acute CHF: Echo showed Normal EF and mild DD. 7. S/p Cardiac arrest. 8. A.fib / A.flutter: Metoprolol. 9. Anoxic encephalopathy: Seen by Neuro. 10. GI bleed: Seen by GI. 11. Elevated Transaminases: Improved. 12. HTN: Monitor. Adjust meds as needed. Subjective: Patient was seen and examined at the bedside. D/w RN at the bedside. Objective: General appearance: well-developed, appears stated age, intubated, on vent HEENT: ATNC, pupils equal Neck: trachea midline Respiratory: ctab Heart: regular, S1S2, no murmur Gastrointestinal: soft, normoactive bowel sounds, not tender Integumentary: no rash, warm and dry Ext: trace extremity edema Neurologic: not responding Musculoskeletal: no obvious deformity Subjective Date of service: 10/24/20 Principal diagnosis: Cardiac arrest; Septic Shock; Ac. hypoxemic & hypercapnic resp failure; MOE Objective - Vital Signs Vital signs: Vital Signs - 12hr 10/23/20 10/23/20 10/23/20 21:30 21:42 22:00 Temperature Pulse Rate 65 70 65 Pulse Rate [ From Monitor] Respiratory 14 18 Rate Blood Pressure 128/70 128/70 120/65 O2 Sat by Pulse 99 100 Oximetry 10/23/20 10/23/20 10/23/20 22:02 22:30 23:00 Temperature Pulse Rate 73 65 67 Pulse Rate [ From Monitor] Respiratory 17 11 L 14 Rate Blood Pressure 120/65 115/67 177/91 O2 Sat by Pulse 99 100 100 Oximetry 04/06/0410/23/20 10/24/20 23:25 23:30 00:00 Temperature 98.3 F Pulse Rate 75 70 67 Pulse Rate [ 66 From Monitor] Respiratory 12 14 Rate Blood Pressure 121/73 121/73 128/73 O2 Sat by Pulse 99 100 100 Oximetry 10/24/20 10/24/20 10/24/20 00:30 01:00 01:30 Temperature Pulse Rate 67 68 64 Pulse Rate [ From Monitor] Respiratory 12 16 17 Rate Blood Pressure 159/83 161/89 146/101 O2 Sat by Pulse 100 100 100 Oximetry 10/24/20 10/24/20 10/24/20 02:00 02:30 03:00 Temperature Pulse Rate 64 65 63 Pulse Rate [ From Monitor] Respiratory 16 16 16 Rate Blood Pressure 124/70 133/76 126/84 O2 Sat by Pulse 98 99 100 Oximetry 10/24/20 10/24/20 10/24/20 03:30 04:00 04:30 Temperature 97.7 F Pulse Rate 62 68 66 Pulse Rate [ 65 From Monitor] Respiratory 16 10 L 14 Rate Blood Pressure 126/84 157/99 132/78 O2 Sat by Pulse 100 100 99 Oximetry 10/24/20 10/24/20 10/24/20 04:40 05:00 05:20 Temperature Pulse Rate 66 67 67 Pulse Rate [ From Monitor] Respiratory 13 Rate Blood Pressure 132/78 132/78 181/99 O2 Sat by Pulse 100 100 Oximetry 10/24/20 10/24/20 10/24/20 05:30 06:00 07:33 Temperature Pulse Rate 65 73 75 Pulse Rate [ From Monitor] Respiratory 18 11 L Rate Blood Pressure 171/90 172/86 219/120 O2 Sat by Pulse 100 100 99 Oximetry 10/24/20 10/24/20 08:10 08:20 Temperature Pulse Rate 74 86 Pulse Rate [ From Monitor] Respiratory Rate Blood Pressure 226/107 226/107 O2 Sat by Pulse Oximetry - Lab 10/21/20 06:30 10/24/20 05:33 Most recent lab results ABG pH 7.334 (7.320-7.450) 10/23/20 05:11 ABG pCO2 55.5 mm Hg 10/16/20 05:10 ABG pO2 104.5 mm Hg (80.0-90.0) H 10/16/20 05:10 ABG HCO3 35.1 mmol/L (20.0-26.0) H 10/16/20 05:10 ABG O2 Saturation 96.0 (0-100) 10/23/20 05:11 Calcium 9.8 mg/dL (8.4-10.2) 10/24/20 05:33 Phosphorus 5.20 mg/dL (2.5-4.5) H D 10/17/20 03:32 Magnesium 2.30 mg/dL (1.7-2.3) 10/17/20 03:32 Urine Creatinine 93.7 mg/dL (0.1-20.0) H 10/19/20 13:14 Urine Sodium 25 mmol/L 10/19/20 13:14 Medications & Allergies - Medications Allergies/Adverse Reactions: Allergies No Known Allergies Allergy (Unverified 07/06/13 15:19) Home Medications: Home Medications Medication Instructions Recorded Confirmed Last Taken Type Colchicine [Colcrys] QDAY 10/21/20 Unknown History Eplerenone [Inspra] 50 mg PO 10/21/20 Unknown History HYDROcodone/APAP 5-325 [[place] 1 each PO Q8HR PRN 10/21/20 10/21/20 Unknown History 5/325] Leflunomide [Arava] 20 mg PO QDAY 10/21/20 10/21/20 3 Weeks Ago History ~09/30/20 20 mg Rosuvastatin (Nf) [Crestor] 20 mg PO QHS 10/21/20 10/21/20 3 Weeks Ago History ~09/30/20 20 mg Torsemide [Demadex] 20 mg PO 10/21/20 Unknown History allopurinoL [Zyloprim] QDAY 10/21/20 Unknown History amLODIPine 5 mg PO BID 10/21/20 10/21/20 3 Weeks Ago History ~09/30/20 5 mg carvediloL [Coreg] 25 mg PO QDAY 10/21/20 10/21/20 3 Weeks Ago History ~09/30/20 25 mg metFORMIN [Glucophage] 500 mg PO QDAY 10/21/20 10/21/20 Unknown History Active Medications: Generic Name Dose Route Start Last Admin Trade Name Freq PRN Reason Stop Dose Admin Acetaminophen 650 mg 10/10/20 21:51 10/20/20 09:11 Acetaminophen 325 Mg Tab PO 650 mg Q4H PRN Administration Pain MILD(1-3)/Fever >100.5/[place] Acetaminophen 650 mg 10/11/20 11:24 10/17/20 17:16 Acetaminophen 650 Mg Rect Supp [place] 650 mg Q6H PRN Administration Fever >101 Albuterol 2.5 mg 10/11/20 13:12 Albuterol 2.5 Mg/3 Ml Nebu IH Q6HRT PRN Shortness Of Breath Lipase/Protease/Amylase 1 each 10/10/20 22:18 Lipase 10,500/Protease 25,000/Amylase 43,750 (Units) Dr Santana FEEDTUBE PRN PRN For Clogged Feeding Tube Clonidine HCl 0.3 mg 10/14/20 15:00 10/21/20 14:05 Clonidine Tts 0.3 Mg/24 Hr Patch TD 0.3 mg Fr PEPITO Administration Docusate Sodium 100 mg 10/16/20 22:00 10/23/20 21:42 Docusate Sodium 100 Mg/10 Ml Oral Liqd PO 100 mg BID PEPITO Administration Fentanyl 50 mcg 10/16/20 14:10 10/23/20 10:53 Fentanyl 100 Mcg/2 Ml Inj IV 50 mcg Q10MIN PRN Administration ANALGESIA Fluticasone Propionate 50 mcg 10/18/20 14:00 10/23/20 21:43 Fluticasone Propionate Nasal [place] 16 Gm NS 50 mcg BID PEPITO Administration Glycopyrrolate 2 mg 10/19/20 14:00 10/24/20 08:10 Glycopyrrolate 1 Mg Tab PO 2 mg Q6H PEPITO Administration Heparin Sodium (Porcine) 5,000 unit 10/11/20 22:00 10/23/20 21:42 Heparin 5,000 Unit/1 Ml Vial SUB-Q 5,000 unit Q12HR PEPITO Administration Hydralazine HCl 5 mg 10/15/20 20:25 10/24/20 08:20 Hydralazine 20 Mg/1 Ml Inj IV 5 mg Q6H PRN Administration Hypertension Hydralazine HCl 50 mg 10/19/20 14:00 10/24/20 05:20 Hydralazine 25 Mg Tab PO 50 mg Q8HR PEPITO Administration Hydromorphone HCl 0.5 mg 10/10/20 21:51 10/15/20 14:45 Hydromorphone 1 Mg/1 Ml Inj IV 0.5 mg Q3H PRN Administration Pain , Severe (7-10) Hydrophilic Ointment 1 applic 10/10/20 10:34 Lip Therapy Vaseline TP Q2HR PRN Dry Lips Levetiracetam 500 mg/ Dextrose 105 mls @ 400 mls/hr 10/13/20 18:00 10/24/20 05:19 IV 400 mls/hr Q12H PEPITO Administration Fentanyl Citrate 2,000 mcg in 100 mls @ 6.175 mls/hr 10/16/20 15:00 10/24/20 00:15 Fentanyl Drip Premix IV 1 mcg/kg/hr TITR PEPITO 6.175 mls/hr Administration Protocol 1 MCG/KG/HR Linezolid 600 mg in 300 mls @ 300 mls/hr 10/20/20 12:00 10/23/20 21:43 Zyvox 600mg/300ml IV 10/29/20 22:59 300 mls/hr Q12HR PEPITO Administration Protocol Lansoprazole 30 mg 10/24/20 10:00 Lansoprazole 30 Mg Solutab FEEDTUBE BID PEPITO Metoclopramide HCl 10 mg 10/10/20 21:51 Metoclopramide 10 Mg/2 Ml Inj IV Q6H PRN Nausea And Vomiting Metoprolol Tartrate 100 mg 10/21/20 14:00 10/24/20 08:10 Metoprolol Tartrate 50 Mg Tab PO 100 mg TID PEPITO Administration Multi-Ingred Cream/Lotion/Oil/Oint 1 applic 10/10/20 10:34 Mineral Oil/Petrolatum, White Ophth Oint 3.5 Gm OU Q4HR PRN Dry Eye(s) Ondansetron HCl 4 mg 10/10/20 21:51 Ondansetron 4 Mg/2 Ml Inj IV Q3H PRN Nausea And Vomiting Polyethylene Glycol 17 gm 10/17/20 10:00 10/23/20 09:36 Polyethylene Glycol 3350 17 Gm Powder PO 17 gm QDAY PEPITO Administration Scopolamine 1 each 10/17/20 10:00 10/23/20 09:35 Scopolamine Transdermal Patch 72 Hr TD 1 each Q3D PEPITO Administration Simple Syrup 15 ml 10/10/20 22:18 Simple Syrup 15 Ml FEEDTUBE PRN PRN Hypoglycemia Simple Syrup 30 ml 10/10/20 22:18 Simple Syrup 15 Ml FEEDTUBE PRN PRN Hypoglycemia Sodium Bicarbonate 325 mg 10/10/20 22:18 Sodium Bicarbonate 325 Mg Tab FEEDTUBE PRN PRN For Clogged Feeding Tube Sodium Chloride 10 ml 10/10/20 22:00 10/23/20 21:43 Sodium Chloride 0.9% 10 Ml Flush Syringe IV 10 ml BID PEPITO Administration Sodium Chloride 10 ml 10/10/20 21:51 10/21/20 09:56 Sodium Chloride 0.9% 10 Ml Flush Syringe IV 10 ml PRN PRN Administration LINE FLUSH
[2020-10-24] MEDS: DOCUSATE SODIUM 100 MG/10 ML ORAL LIQD PO SCH ×2 (09:49→21:16)
[2020-10-24] MEDS: POLYETHYLENE GLYCOL 3350 17 GM POWDER PO SCH (09:49)
[2020-10-24] MEDS: LINEZOLID 600 MG/300 ML BAG IV SCH ×2 (09:49→21:16)
[2020-10-24] MEDS: LANSOPRAZOLE 30 MG SOLUTAB FEEDTUBE SCH ×2 (09:49→21:16)
--- NOTE | 2020-10-24 09:49 | Progress Note ---
Assessment and Plan Cardiac arrest x3 with ROSC Severe septic and cardiogenic shock Acute respiratory failure with hypoxia and hypercarbia on MVS Acute pulmonary edema MOE (acute kidney injury) Lactic acidosis, severe metabolic acidosis Bilateral pneumonia, aspiration pneumonia Elevated troponins Hypernatremia -MRI of the brain today, there were no episodes of desaturations or tachypnea when I laid him flat in the room. -After MRI is done, PSV trial today. Continue to wean Fentanyl, plan to decrease dose to 0.5 -Continue free water flushes to help treat hypernatremia -Will discuss trach and PEG with family tomorrow- was unable to get this done today. -VAP bundle addressed, aspiration precautions HOB >30 -probably an element of hypoxic damage, Neurology work up on going. -Titrate supplemental oxygen to keep O2 sats between 89-92% - Peep at 8, continue to monitor airway pressures closely - Lung protective strategies - continue bronchodilators with pulmonary hygiene per RT -Daily assessment for readiness to wean. SAT and SBTs daily - avoid nephrotoxins, renal dosing of all medications -Blood pressure control and management - Accuchecks with glycemic control per SSI (While critically ill target blood glucose of 140-180 mg/dL; avoid hypoglycemia) - Titrate for target RASS 0 to -1 - Maintenance of sleep-wake cycle, avoid delirium -Enteric nutritional support - Stress ulcer prophylaxis-Pantoprazole -VTE prophyalxis- Heparin -Mobility, off loading, frequent turning per facility protocol to prevent pressure ulcers - Monitor hemodynamics closely CONDITION: CRITICAL PROGNOSIS: GUARDED CODE STATUS: FULL CODE The high probability of a clinically significant, sudden or life-threatening deterioration of the [respiratory, cardiovascular, renal & neurologic] system(s) required my full and direct attention, intervention and personal management. The aggregate critical care time was [33 ] minutes without overlap. Time includes spent on; [x] Data Review and interpretation [x] Patient assessment and monitoring of vital signs [x] Documentation [x] Medication orders and management Subjective Date of service: 10/24/20 Principal diagnosis: Cardiac arrest; Septic Shock; Ac. hypoxemic & hypercapnic resp failure; MOE Interval history: Patient is seen today for: Cardiac arrest with ROSC; Severe septic and cardiogenic shock; Acute respiratory failure with hypoxemia and hypercarbia; Acute pulmonary edema; MOE; Lactic acidosis; severe metabolic acidosis; Bilateral pneumonia; aspiration pneumonia; Elevated troponins Seen and examined at bedside; 24hour events reviewed; nursing and respiratory care staff consulted; no adverse overnight events reported to me; resting peacefully in bed on MVS; no fevers, no vomiting, no diarrhea, tolerating tube feedings Mental status changes persist, awake but not tracking, not obeying commands - on Fentanyl at 1. He tolerated laying flat in the room, so will go ahead and get MRI done today. Objective Vital Signs - 12hr 10/23/20 10/23/20 10/23/20 22:00 22:02 22:30 Temperature Pulse Rate 65 73 65 Pulse Rate [ From Monitor] Respiratory 18 17 11 L Rate Blood Pressure 120/65 120/65 115/67 O2 Sat by Pulse 100 99 100 Oximetry 10/23/20 10/23/20 10/23/20 23:00 23:25 23:30 Temperature Pulse Rate 67 75 70 Pulse Rate [ From Monitor] Respiratory 14 12 Rate Blood Pressure 177/91 121/73 121/73 O2 Sat by Pulse 100 99 100 Oximetry 10/24/20 10/24/20 10/24/20 00:00 00:30 01:00 Temperature 98.3 F Pulse Rate 67 67 68 Pulse Rate [ 66 From Monitor] Respiratory 14 12 16 Rate Blood Pressure 128/73 159/83 161/89 O2 Sat by Pulse 100 100 100 Oximetry 10/24/20 10/24/20 10/24/20 01:30 02:00 02:30 Temperature Pulse Rate 64 64 65 Pulse Rate [ From Monitor] Respiratory 17 16 16 Rate Blood Pressure 146/101 124/70 133/76 O2 Sat by Pulse 100 98 99 Oximetry 10/24/20 10/24/20 10/24/20 03:00 03:30 04:00 Temperature 97.7 F Pulse Rate 63 62 68 Pulse Rate [ 65 From Monitor] Respiratory 16 16 10 L Rate Blood Pressure 126/84 126/84 157/99 O2 Sat by Pulse 100 100 100 Oximetry 10/24/20 10/24/20 10/24/20 04:30 04:40 05:00 Temperature Pulse Rate 66 66 67 Pulse Rate [ From Monitor] Respiratory 14 13 Rate Blood Pressure 132/78 132/78 132/78 O2 Sat by Pulse 99 100 100 Oximetry 10/24/20 10/24/20 10/24/20 05:20 05:30 06:00 Temperature Pulse Rate 67 65 73 Pulse Rate [ From Monitor] Respiratory 18 11 L Rate Blood Pressure 181/99 171/90 172/86 O2 Sat by Pulse 100 100 Oximetry 10/24/20 10/24/20 10/24/20 06:30 07:00 07:30 Temperature Pulse Rate 73 75 78 Pulse Rate [ From Monitor] Respiratory 11 L 13 15 Rate Blood Pressure 172/86 172/86 231/139 O2 Sat by Pulse 100 98 99 Oximetry 10/24/20 10/24/20 10/24/20 07:33 08:00 08:10 Temperature Pulse Rate 75 83 74 Pulse Rate [ From Monitor] Respiratory 15 Rate Blood Pressure 219/120 232/137 226/107 O2 Sat by Pulse 99 99 Oximetry 10/24/20 10/24/20 10/24/20 08:20 08:30 09:00 Temperature Pulse Rate 86 78 66 Pulse Rate [ From Monitor] Respiratory 17 16 Rate Blood Pressure 226/107 226/107 140/72 O2 Sat by Pulse 98 99 Oximetry 10/24/20 09:30 Temperature Pulse Rate 65 Pulse Rate [ From Monitor] Respiratory 16 Rate Blood Pressure 114/65 O2 Sat by Pulse 98 Oximetry Constitutional: no acute distress, other (middle aged obese male with mildly increased respiratory efort at rest) Eyes: non-icteric ENT: oropharynx moist, oropharyngeal exudate pre, other (ETT 23 cm ANNIE) Neck: supple, no lymphadenopathy, no JVD Effort: mildly labored Ascultation: Bilateral: clear, diminished breath sounds, rhonchi (scant) Percussion: Bilateral: not dull Cardiovascular: regular rate and rhythm, other (S1,S2) Gastrointestinal: normoactive bowel sounds, soft, non-tender, non-distended (protuberant) Integumentary: normal Extremities: no cyanosis, no edema, pulses normal, no ischemia or petechiae Neurologic: pupils equal and round, unable to assess Psychiatric: other (unable to assess re: AMS) CBC and BMP: 10/21/20 06:30 10/24/20 05:33 ABG, PT/INR, D-dimer: ABG ABG pH 7.334 (7.320-7.450) 10/23/20 05:11 POC ABG pCO2 63.6 mmHg (32.0-48.0) H 10/23/20 05:11 ABG pCO2 55.5 mm Hg 10/16/20 05:10 POC ABG pO2 81.2 mmHg (83-108) L 10/23/20 05:11 ABG pO2 104.5 mm Hg (80.0-90.0) H 10/16/20 05:10 POC ABG HCO3 33.1 10/23/20 05:11 ABG O2 Saturation 96.0 (0-100) 10/23/20 05:11 PT/INR, D-dimer PT 13.8 Sec. (12.2-14.9) 10/10/20 18:18 INR 1.07 (0.87-1.13) 10/10/20 18:18 D-Dimer 679.5 ng/mlDDU (0-234) H 10/10/20 10:48 Abnormal lab findings: Abnormal Labs 10/10/20 10/10/20 10/10/20 10:46 10:46 10:46 WBC RBC Hgb Hct RDW Lymph % (Auto) [place] % (Auto) Lymph # (Auto) [place] # (Auto) Seg Neutrophils % Lymphocytes % (Manual) Monocytes % (Manual) Seg Neutrophils # Seg Neutrophils # Man Lymphocytes # (Manual) Monocytes # (Manual) D-Dimer Heparin Anti-Xa Level ABG pH POC ABG pCO2 POC ABG pO2 ABG pO2 ABG HCO3 ABG O2 Saturation ABG Base Excess ABG Hemoglobin ABG Oxyhemoglobin ABG Sodium ABG Potassium ABG Chloride ABG Glucose VBG pH Oxyhemoglobin Carboxyhemoglobin Sodium Potassium Chloride Carbon Dioxide BUN Creatinine Glucose POC Glucose Lactic Acid 13.60 H* Calcium Phosphorus Magnesium Total Bilirubin AST ALT Ammonia 214.0 H Lactate Dehydrogenase Total Creatine Kinase CK-MB (CK-2) Troponin T NT-Pro-B Natriuret Pep Total Protein Albumin Triglycerides TSH 6.260 H Arterial Blood Glucose Arterial Blood Ionized Calcium Urine pH Urine WBC (Auto) Urine Creatinine 10/10/20 10/10/20 10/10/20 10:46 10:48 10:48 WBC RBC 5.28 H Hgb 15.5 H Hct 48.8 H RDW Lymph % (Auto) [place] % (Auto) Lymph # (Auto) [place] # (Auto) Seg Neutrophils % Lymphocytes % (Manual) 42.0 H Monocytes % (Manual) Seg Neutrophils # Seg Neutrophils # Man Lymphocytes # (Manual) Monocytes # (Manual) D-Dimer Heparin Anti-Xa Level ABG pH POC ABG pCO2 POC ABG pO2 ABG pO2 ABG HCO3 ABG O2 Saturation ABG Base Excess ABG Hemoglobin ABG Oxyhemoglobin ABG Sodium ABG Potassium ABG Chloride ABG Glucose VBG pH Oxyhemoglobin Carboxyhemoglobin Sodium Potassium 3.3 L Chloride 91.2 L Carbon Dioxide BUN Creatinine 1.8 H Glucose 231 H POC Glucose Lactic Acid Calcium Phosphorus Magnesium Total Bilirubin AST 60 H ALT 57 H Ammonia Lactate Dehydrogenase Total Creatine Kinase CK-MB (CK-2) Troponin T NT-Pro-B Natriuret Pep 1187 H Total Protein 9.0 H Albumin Triglycerides TSH Arterial Blood Glucose Arterial Blood Ionized Calcium Urine pH Urine WBC (Auto) Urine Creatinine 10/10/20 10/10/20 10/10/20 10:48 10:48 10:48 WBC RBC Hgb Hct RDW Lymph % (Auto) [place] % (Auto) Lymph # (Auto) [place] # (Auto) Seg Neutrophils % Lymphocytes % (Manual) Monocytes % (Manual) Seg Neutrophils # Seg Neutrophils # Man Lymphocytes # (Manual) Monocytes # (Manual) D-Dimer 679.5 H Heparin Anti-Xa Level ABG pH POC ABG pCO2 POC ABG pO2 ABG pO2 ABG HCO3 ABG O2 Saturation ABG Base Excess ABG Hemoglobin ABG Oxyhemoglobin ABG Sodium ABG Potassium ABG Chloride ABG Glucose VBG pH 6.870 L* Oxyhemoglobin Carboxyhemoglobin Sodium Potassium Chloride Carbon Dioxide BUN Creatinine Glucose POC Glucose Lactic Acid Calcium Phosphorus Magnesium Total Bilirubin AST ALT Ammonia Lactate Dehydrogenase 386 H Total Creatine Kinase CK-MB (CK-2) Troponin T NT-Pro-B Natriuret Pep Total Protein Albumin Triglycerides TSH Arterial Blood Glucose Arterial Blood Ionized Calcium Urine pH Urine WBC (Auto) Urine Creatinine 10/10/20 10/10/20 10/10/20 14:10 14:20 15:50 WBC RBC Hgb Hct RDW Lymph % (Auto) [place] % (Auto) Lymph # (Auto) [place] # (Auto) Seg Neutrophils % Lymphocytes % (Manual) Monocytes % (Manual) Seg Neutrophils # Seg Neutrophils # Man Lymphocytes # (Manual) Monocytes # (Manual) D-Dimer Heparin Anti-Xa Level ABG pH 7.175 L 7.247 L POC ABG pCO2 85.0 H POC ABG pO2 43.7 L ABG pO2 60.3 L ABG HCO3 32.0 H ABG O2 Saturation 86.1 L ABG Base Excess ABG Hemoglobin ABG Oxyhemoglobin 67.7 L ABG Sodium ABG Potassium ABG Chloride ABG Glucose 247 H VBG pH Oxyhemoglobin 84.4 L Carboxyhemoglobin Sodium Potassium Chloride Carbon Dioxide BUN Creatinine Glucose POC Glucose Lactic Acid 4.00 H* Calcium Phosphorus Magnesium Total Bilirubin AST ALT Ammonia Lactate Dehydrogenase Total Creatine Kinase CK-MB (CK-2) Troponin T NT-Pro-B Natriuret Pep Total Protein Albumin Triglycerides TSH Arterial Blood Glucose 247 H Arterial Blood Ionized Calcium 4.4 L Urine pH Urine WBC (Auto) Urine Creatinine 10/10/20 10/10/20 10/10/20 15:50 16:22 18:18 WBC RBC Hgb Hct RDW Lymph % (Auto) [place] % (Auto) Lymph # (Auto) [place] # (Auto) Seg Neutrophils % Lymphocytes % (Manual) Monocytes % (Manual) Seg Neutrophils # Seg Neutrophils # Man Lymphocytes # (Manual) Monocytes # (Manual) D-Dimer Heparin Anti-Xa Level ABG pH 7.171 L POC ABG pCO2 96.6 H POC ABG pO2 55.3 L ABG pO2 ABG HCO3 ABG O2 Saturation ABG Base Excess ABG Hemoglobin ABG Oxyhemoglobin 81.4 L ABG Sodium ABG Potassium ABG Chloride ABG Glucose 115 H VBG pH Oxyhemoglobin Carboxyhemoglobin Sodium Potassium Chloride Carbon Dioxide BUN Creatinine Glucose POC Glucose 132 H Lactic Acid Calcium Phosphorus Magnesium Total Bilirubin AST ALT Ammonia Lactate Dehydrogenase Total Creatine Kinase 1192 H CK-MB (CK-2) 21.7 H Troponin T 0.377 H* D NT-Pro-B Natriuret Pep Total Protein Albumin Triglycerides TSH Arterial Blood Glucose 115 H Arterial Blood Ionized Calcium Urine pH Urine WBC (Auto) Urine Creatinine 10/10/20 10/10/20 10/10/20 18:18 18:18 22:49 WBC 23.0 H RBC 5.12 H Hgb Hct RDW Lymph % (Auto) [place] % (Auto) Lymph # (Auto) [place] # (Auto) Seg Neutrophils % Lymphocytes % (Manual) 4.0 L Monocytes % (Manual) 9.0 H Seg Neutrophils # Seg Neutrophils # Man 13.8 H Lymphocytes # (Manual) 0.9 L Monocytes # (Manual) 2.1 H D-Dimer Heparin Anti-Xa Level ABG pH POC ABG pCO2 POC ABG pO2 ABG pO2 ABG HCO3 ABG O2 Saturation ABG Base Excess ABG Hemoglobin ABG Oxyhemoglobin ABG Sodium ABG Potassium ABG Chloride ABG Glucose VBG pH Oxyhemoglobin Carboxyhemoglobin Sodium 146 H Potassium Chloride Carbon Dioxide 34 H D BUN 27 H Creatinine 2.7 H Glucose 102 H POC Glucose Lactic Acid Calcium Phosphorus Magnesium Total Bilirubin AST 90 H ALT 66 H Ammonia Lactate Dehydrogenase Total Creatine Kinase CK-MB (CK-2) Troponin T 0.273 H* D NT-Pro-B Natriuret Pep Total Protein Albumin Triglycerides TSH Arterial Blood Glucose Arterial Blood Ionized Calcium Urine pH Urine WBC (Auto) Urine Creatinine 10/11/20 10/11/20 10/11/20 02:00 02:00 02:00 WBC 17.3 H RBC Hgb Hct RDW Lymph % (Auto) 3.9 L [place] % (Auto) Lymph # (Auto) 0.7 L [place] # (Auto) Seg Neutrophils % 93.0 H Lymphocytes % (Manual) Monocytes % (Manual) Seg Neutrophils # 16.1 H Seg Neutrophils # Man Lymphocytes # (Manual) Monocytes # (Manual) D-Dimer Heparin Anti-Xa Level ABG pH POC ABG pCO2 POC ABG pO2 ABG pO2 ABG HCO3 ABG O2 Saturation ABG Base Excess ABG Hemoglobin ABG Oxyhemoglobin ABG Sodium ABG Potassium ABG Chloride ABG Glucose VBG pH Oxyhemoglobin Carboxyhemoglobin Sodium 149 H Potassium 3.3 L Chloride 95.3 L Carbon Dioxide 37 H BUN 29 H Creatinine 2.6 H Glucose POC Glucose Lactic Acid Calcium Phosphorus Magnesium Total Bilirubin AST 80 H ALT 59 H Ammonia Lactate Dehydrogenase Total Creatine Kinase CK-MB (CK-2) Troponin T 0.201 H* D NT-Pro-B Natriuret Pep Total Protein Albumin 3.6 L Triglycerides TSH Arterial Blood Glucose Arterial Blood Ionized Calcium Urine pH Urine WBC (Auto) Urine Creatinine 10/11/20 10/11/20 10/11/20 03:51 08:35 11:15 WBC RBC Hgb Hct RDW Lymph % (Auto) [place] % (Auto) Lymph # (Auto) [place] # (Auto) Seg Neutrophils % Lymphocytes % (Manual) Monocytes % (Manual) Seg Neutrophils # Seg Neutrophils # Man Lymphocytes # (Manual) Monocytes # (Manual) D-Dimer Heparin Anti-Xa Level 0.22 L ABG pH 7.491 H POC ABG pCO2 57.6 H POC ABG pO2 ABG pO2 ABG HCO3 ABG O2 Saturation ABG Base Excess ABG Hemoglobin ABG Oxyhemoglobin ABG Sodium 150.0 H ABG Potassium 3.1 L ABG Chloride 96.0 L ABG Glucose 122 H VBG pH Oxyhemoglobin Carboxyhemoglobin Sodium Potassium Chloride Carbon Dioxide BUN Creatinine Glucose POC Glucose 151 H Lactic Acid Calcium Phosphorus Magnesium Total Bilirubin AST ALT Ammonia Lactate Dehydrogenase Total Creatine Kinase CK-MB (CK-2) Troponin T NT-Pro-B Natriuret Pep Total Protein Albumin Triglycerides TSH Arterial Blood Glucose 122 H Arterial Blood Ionized Calcium 3.9 L Urine pH Urine WBC (Auto) Urine Creatinine 10/11/20 10/11/20 10/11/20 13:30 13:30 13:30 WBC 15.0 H RBC Hgb Hct RDW Lymph % (Auto) [place] % (Auto) Lymph # (Auto) [place] # (Auto) Seg Neutrophils % Lymphocytes % (Manual) Monocytes % (Manual) Seg Neutrophils # Seg Neutrophils # Man Lymphocytes # (Manual) Monocytes # (Manual) D-Dimer Heparin Anti-Xa Level ABG pH POC ABG pCO2 POC ABG pO2 ABG pO2 ABG HCO3 ABG O2 Saturation ABG Base Excess ABG Hemoglobin ABG Oxyhemoglobin ABG Sodium ABG Potassium ABG Chloride ABG Glucose VBG pH Oxyhemoglobin Carboxyhemoglobin Sodium Potassium Chloride Carbon Dioxide BUN Creatinine Glucose POC Glucose Lactic Acid Calcium Phosphorus Magnesium Total Bilirubin AST ALT Ammonia Lactate Dehydrogenase Total Creatine Kinase CK-MB (CK-2) Troponin T NT-Pro-B Natriuret Pep Total Protein Albumin Triglycerides TSH Arterial Blood Glucose Arterial Blood Ionized Calcium Urine pH 9.0 H Urine WBC (Auto) 18.0 H Urine Creatinine 80.5 H 10/11/20 10/11/20 10/12/20 17:17 23:14 03:53 WBC RBC Hgb Hct RDW Lymph % (Auto) [place] % (Auto) Lymph # (Auto) [place] # (Auto) Seg Neutrophils % Lymphocytes % (Manual) Monocytes % (Manual) Seg Neutrophils # Seg Neutrophils # Man Lymphocytes # (Manual) Monocytes # (Manual) D-Dimer Heparin Anti-Xa Level ABG pH 7.545 H POC ABG pCO2 54.6 H POC ABG pO2 231.9 H ABG pO2 ABG HCO3 ABG O2 Saturation ABG Base Excess ABG Hemoglobin ABG Oxyhemoglobin 98.5 H ABG Sodium 150.5 H ABG Potassium 3.2 L ABG Chloride 96.0 L ABG Glucose 148 H VBG pH Oxyhemoglobin Carboxyhemoglobin Sodium Potassium Chloride Carbon Dioxide BUN Creatinine Glucose POC Glucose 121 H 135 H Lactic Acid Calcium Phosphorus Magnesium Total Bilirubin AST ALT Ammonia Lactate Dehydrogenase Total Creatine Kinase CK-MB (CK-2) Troponin T NT-Pro-B Natriuret Pep Total Protein Albumin Triglycerides TSH Arterial Blood Glucose 148 H Arterial Blood Ionized Calcium 3.8 L Urine pH Urine WBC (Auto) Urine Creatinine 10/12/20 10/12/20 10/12/20 04:00 05:10 05:12 WBC 14.3 H RBC Hgb 11.6 L Hct 35.2 L RDW Lymph % (Auto) [place] % (Auto) Lymph # (Auto) [place] # (Auto) Seg Neutrophils % Lymphocytes % (Manual) Monocytes % (Manual) Seg Neutrophils # Seg Neutrophils # Man Lymphocytes # (Manual) Monocytes # (Manual) D-Dimer Heparin Anti-Xa Level ABG pH POC ABG pCO2 POC ABG pO2 ABG pO2 ABG HCO3 ABG O2 Saturation ABG Base Excess ABG Hemoglobin ABG Oxyhemoglobin ABG Sodium ABG Potassium ABG Chloride ABG Glucose VBG pH Oxyhemoglobin Carboxyhemoglobin Sodium 155 H Potassium 3.3 L Chloride 97.9 L Carbon Dioxide 47 H* D BUN 50 H Creatinine 3.4 H Glucose 146 H POC Glucose 137 H Lactic Acid Calcium 8.0 L Phosphorus Magnesium Total Bilirubin AST ALT Ammonia Lactate Dehydrogenase Total Creatine Kinase CK-MB (CK-2) Troponin T 0.125 H* D NT-Pro-B Natriuret Pep Total Protein Albumin Triglycerides TSH Arterial Blood Glucose Arterial Blood Ionized Calcium Urine pH Urine WBC (Auto) Urine Creatinine 10/12/20 10/12/20 10/12/20 11:39 16:01 19:49 WBC RBC Hgb Hct RDW Lymph % (Auto) [place] % (Auto) Lymph # (Auto) [place] # (Auto) Seg Neutrophils % Lymphocytes % (Manual) Monocytes % (Manual) Seg Neutrophils # Seg Neutrophils # Man Lymphocytes # (Manual) Monocytes # (Manual) D-Dimer Heparin Anti-Xa Level ABG pH POC ABG pCO2 POC ABG pO2 ABG pO2 ABG HCO3 ABG O2 Saturation ABG Base Excess ABG Hemoglobin ABG Oxyhemoglobin ABG Sodium ABG Potassium ABG Chloride ABG Glucose VBG pH Oxyhemoglobin Carboxyhemoglobin Sodium 157 H Potassium 3.3 L Chloride Carbon Dioxide 47 H* BUN 52 H Creatinine 3.0 H Glucose 137 H POC Glucose 138 H 119 H Lactic Acid Calcium 8.0 L Phosphorus Magnesium Total Bilirubin AST ALT Ammonia Lactate Dehydrogenase Total Creatine Kinase CK-MB (CK-2) Troponin T NT-Pro-B Natriuret Pep Total Protein Albumin Triglycerides TSH Arterial Blood Glucose Arterial Blood Ionized Calcium Urine pH Urine WBC (Auto) Urine Creatinine 10/12/20 10/13/20 10/13/20 23:37 02:28 04:52 WBC RBC Hgb Hct RDW Lymph % (Auto) [place] % (Auto) Lymph # (Auto) [place] # (Auto) Seg Neutrophils % Lymphocytes % (Manual) Monocytes % (Manual) Seg Neutrophils # Seg Neutrophils # Man Lymphocytes # (Manual) Monocytes # (Manual) D-Dimer Heparin Anti-Xa Level ABG pH 7.485 H POC ABG pCO2 57.1 H POC ABG pO2 ABG pO2 ABG HCO3 ABG O2 Saturation ABG Base Excess ABG Hemoglobin ABG Oxyhemoglobin ABG Sodium 152.4 H ABG Potassium ABG Chloride ABG Glucose 129 H VBG pH Oxyhemoglobin Carboxyhemoglobin Sodium 155 H Potassium Chloride Carbon Dioxide 45 H* BUN 52 H Creatinine 2.7 H Glucose 121 H POC Glucose 131 H Lactic Acid Calcium Phosphorus Magnesium 2.40 H Total Bilirubin AST ALT Ammonia Lactate Dehydrogenase Total Creatine Kinase CK-MB (CK-2) Troponin T NT-Pro-B Natriuret Pep Total Protein Albumin Triglycerides 278 H TSH Arterial Blood Glucose 129 H Arterial Blood Ionized Calcium 4.1 L Urine pH Urine WBC (Auto) Urine Creatinine 10/13/20 10/13/20 10/13/20 04:52 05:13 11:37 WBC 14.7 H RBC Hgb 11.7 L Hct RDW 15.8 H Lymph % (Auto) [place] % (Auto) Lymph # (Auto) [place] # (Auto) Seg Neutrophils % Lymphocytes % (Manual) Monocytes % (Manual) Seg Neutrophils # Seg Neutrophils # Man Lymphocytes # (Manual) Monocytes # (Manual) D-Dimer Heparin Anti-Xa Level ABG pH POC ABG pCO2 POC ABG pO2 ABG pO2 ABG HCO3 ABG O2 Saturation ABG Base Excess ABG Hemoglobin ABG Oxyhemoglobin ABG Sodium ABG Potassium ABG Chloride ABG Glucose VBG pH Oxyhemoglobin Carboxyhemoglobin Sodium Potassium Chloride Carbon Dioxide BUN Creatinine Glucose POC Glucose 116 H 116 H Lactic Acid Calcium Phosphorus Magnesium Total Bilirubin AST ALT Ammonia Lactate Dehydrogenase Total Creatine Kinase CK-MB (CK-2) Troponin T NT-Pro-B Natriuret Pep Total Protein Albumin Triglycerides TSH Arterial Blood Glucose Arterial Blood Ionized Calcium Urine pH Urine WBC (Auto) Urine Creatinine 10/13/20 10/14/20 10/14/20 17:50 03:45 04:46 WBC 11.1 H RBC Hgb Hct RDW 15.3 H Lymph % (Auto) [place] % (Auto) Lymph # (Auto) [place] # (Auto) Seg Neutrophils % Lymphocytes % (Manual) Monocytes % (Manual) Seg Neutrophils # Seg Neutrophils # Man Lymphocytes # (Manual) Monocytes # (Manual) D-Dimer Heparin Anti-Xa Level ABG pH POC ABG pCO2 59.6 H POC ABG pO2 ABG pO2 ABG HCO3 ABG O2 Saturation ABG Base Excess ABG Hemoglobin ABG Oxyhemoglobin ABG Sodium 151.4 H ABG Potassium 3.3 L ABG Chloride ABG Glucose 138 H VBG pH Oxyhemoglobin Carboxyhemoglobin 1.6 H Sodium Potassium Chloride Carbon Dioxide BUN Creatinine Glucose POC Glucose 140 H Lactic Acid Calcium Phosphorus Magnesium Total Bilirubin AST ALT Ammonia Lactate Dehydrogenase Total Creatine Kinase CK-MB (CK-2) Troponin T NT-Pro-B Natriuret Pep Total Protein Albumin Triglycerides TSH Arterial Blood Glucose 138 H Arterial Blood Ionized Calcium 4.5 L Urine pH Urine WBC (Auto) Urine Creatinine 10/14/20 10/14/20 10/14/20 04:46 05:10 11:11 WBC RBC Hgb Hct RDW Lymph % (Auto) [place] % (Auto) Lymph # (Auto) [place] # (Auto) Seg Neutrophils % Lymphocytes % (Manual) Monocytes % (Manual) Seg Neutrophils # Seg Neutrophils # Man Lymphocytes # (Manual) Monocytes # (Manual) D-Dimer Heparin Anti-Xa Level ABG pH POC ABG pCO2 POC ABG pO2 ABG pO2 ABG HCO3 ABG O2 Saturation ABG Base Excess ABG Hemoglobin ABG Oxyhemoglobin ABG Sodium ABG Potassium ABG Chloride ABG Glucose VBG pH Oxyhemoglobin Carboxyhemoglobin Sodium 152 H Potassium 3.5 L Chloride Carbon Dioxide 38 H D BUN 46 H Creatinine 2.3 H Glucose 127 H POC Glucose 116 H 114 H Lactic Acid Calcium Phosphorus Magnesium Total Bilirubin AST ALT Ammonia Lactate Dehydrogenase Total Creatine Kinase CK-MB (CK-2) Troponin T NT-Pro-B Natriuret Pep Total Protein Albumin Triglycerides TSH Arterial Blood Glucose Arterial Blood Ionized Calcium Urine pH Urine WBC (Auto) Urine Creatinine 10/14/20 10/14/20 10/15/20 18:53 23:23 04:12 WBC RBC Hgb Hct RDW Lymph % (Auto) [place] % (Auto) Lymph # (Auto) [place] # (Auto) Seg Neutrophils % Lymphocytes % (Manual) Monocytes % (Manual) Seg Neutrophils # Seg Neutrophils # Man Lymphocytes # (Manual) Monocytes # (Manual) D-Dimer Heparin Anti-Xa Level ABG pH POC ABG pCO2 POC ABG pO2 ABG pO2 ABG HCO3 ABG O2 Saturation ABG Base Excess ABG Hemoglobin ABG Oxyhemoglobin ABG Sodium ABG Potassium ABG Chloride ABG Glucose VBG pH Oxyhemoglobin Carboxyhemoglobin Sodium 149 H Potassium 3.2 L Chloride Carbon Dioxide 37 H BUN 40 H Creatinine 2.0 H Glucose 124 H POC Glucose 128 H 113 H Lactic Acid Calcium Phosphorus Magnesium Total Bilirubin AST ALT Ammonia Lactate Dehydrogenase Total Creatine Kinase CK-MB (CK-2) Troponin T NT-Pro-B Natriuret Pep Total Protein Albumin Triglycerides TSH Arterial Blood Glucose Arterial Blood Ionized Calcium Urine pH Urine WBC (Auto) Urine Creatinine 10/15/20 10/15/20 10/15/20 04:22 11:39 17:36 WBC RBC Hgb Hct RDW Lymph % (Auto) [place] % (Auto) Lymph # (Auto) [place] # (Auto) Seg Neutrophils % Lymphocytes % (Manual) Monocytes % (Manual) Seg Neutrophils # Seg Neutrophils # Man Lymphocytes # (Manual) Monocytes # (Manual) D-Dimer Heparin Anti-Xa Level ABG pH POC ABG pCO2 POC ABG pO2 ABG pO2 115.0 H ABG HCO3 38.1 H ABG O2 Saturation ABG Base Excess 11.3 H ABG Hemoglobin 11.0 L ABG Oxyhemoglobin ABG Sodium ABG Potassium ABG Chloride ABG Glucose VBG pH Oxyhemoglobin Carboxyhemoglobin Sodium Potassium Chloride Carbon Dioxide BUN Creatinine Glucose POC Glucose 123 H 118 H Lactic Acid Calcium Phosphorus Magnesium Total Bilirubin AST ALT Ammonia Lactate Dehydrogenase Total Creatine Kinase CK-MB (CK-2) Troponin T NT-Pro-B Natriuret Pep Total Protein Albumin Triglycerides TSH Arterial Blood Glucose Arterial Blood Ionized Calcium Urine pH Urine WBC (Auto) Urine Creatinine 10/15/20 10/16/20 10/16/20 23:18 03:13 05:10 WBC RBC Hgb Hct RDW Lymph % (Auto) [place] % (Auto) Lymph # (Auto) [place] # (Auto) Seg Neutrophils % Lymphocytes % (Manual) Monocytes % (Manual) Seg Neutrophils # Seg Neutrophils # Man Lymphocytes # (Manual) Monocytes # (Manual) D-Dimer Heparin Anti-Xa Level ABG pH POC ABG pCO2 POC ABG pO2 ABG pO2 104.5 H ABG HCO3 35.1 H ABG O2 Saturation ABG Base Excess 9.5 H ABG Hemoglobin 7.9 L ABG Oxyhemoglobin ABG Sodium ABG Potassium ABG Chloride ABG Glucose VBG pH Oxyhemoglobin Carboxyhemoglobin Sodium Potassium 3.3 L Chloride Carbon Dioxide 33 H BUN 37 H Creatinine 1.4 H Glucose 148 H POC Glucose 135 H Lactic Acid Calcium Phosphorus Magnesium 2.40 H Total Bilirubin AST ALT Ammonia Lactate Dehydrogenase Total Creatine Kinase CK-MB (CK-2) Troponin T NT-Pro-B Natriuret Pep Total Protein Albumin Triglycerides TSH Arterial Blood Glucose Arterial Blood Ionized Calcium Urine pH Urine WBC (Auto) Urine Creatinine 10/16/20 10/16/20 10/16/20 06:36 11:08 17:07 WBC RBC Hgb Hct RDW Lymph % (Auto) [place] % (Auto) Lymph # (Auto) [place] # (Auto) Seg Neutrophils % Lymphocytes % (Manual) Monocytes % (Manual) Seg Neutrophils # Seg Neutrophils # Man Lymphocytes # (Manual) Monocytes # (Manual) D-Dimer Heparin Anti-Xa Level ABG pH POC ABG pCO2 POC ABG pO2 ABG pO2 ABG HCO3 ABG O2 Saturation ABG Base Excess ABG Hemoglobin ABG Oxyhemoglobin ABG Sodium ABG Potassium ABG Chloride ABG Glucose VBG pH Oxyhemoglobin Carboxyhemoglobin Sodium Potassium Chloride Carbon Dioxide BUN Creatinine Glucose POC Glucose 150 H 111 H 132 H Lactic Acid Calcium Phosphorus Magnesium Total Bilirubin AST ALT Ammonia Lactate Dehydrogenase Total Creatine Kinase CK-MB (CK-2) Troponin T NT-Pro-B Natriuret Pep Total Protein Albumin Triglycerides TSH Arterial Blood Glucose Arterial Blood Ionized Calcium Urine pH Urine WBC (Auto) Urine Creatinine 10/16/20 10/17/20 10/17/20 23:38 03:32 03:32 WBC RBC Hgb Hct RDW Lymph % (Auto) [place] % (Auto) Lymph # (Auto) [place] # (Auto) Seg Neutrophils % Lymphocytes % (Manual) Monocytes % (Manual) Seg Neutrophils # Seg Neutrophils # Man Lymphocytes # (Manual) Monocytes # (Manual) D-Dimer Heparin Anti-Xa Level ABG pH POC ABG pCO2 POC ABG pO2 ABG pO2 ABG HCO3 ABG O2 Saturation ABG Base Excess ABG Hemoglobin ABG Oxyhemoglobin ABG Sodium ABG Potassium ABG Chloride ABG Glucose VBG pH Oxyhemoglobin Carboxyhemoglobin Sodium 146 H Potassium Chloride Carbon Dioxide 32 H BUN 57 H Creatinine 2.4 H D Glucose 124 H POC Glucose 117 H Lactic Acid Calcium Phosphorus 5.20 H D Magnesium Total Bilirubin AST ALT Ammonia Lactate Dehydrogenase Total Creatine Kinase CK-MB (CK-2) Troponin T NT-Pro-B Natriuret Pep Total Protein Albumin Triglycerides TSH Arterial Blood Glucose Arterial Blood Ionized Calcium Urine pH Urine WBC (Auto) Urine Creatinine 10/17/20 10/17/20 10/18/20 05:10 17:33 00:13 WBC RBC Hgb Hct RDW Lymph % (Auto) [place] % (Auto) Lymph # (Auto) [place] # (Auto) Seg Neutrophils % Lymphocytes % (Manual) Monocytes % (Manual) Seg Neutrophils # Seg Neutrophils # Man Lymphocytes # (Manual) Monocytes # (Manual) D-Dimer Heparin Anti-Xa Level ABG pH POC ABG pCO2 POC ABG pO2 ABG pO2 ABG HCO3 ABG O2 Saturation ABG Base Excess ABG Hemoglobin ABG Oxyhemoglobin ABG Sodium ABG Potassium ABG Chloride ABG Glucose VBG pH Oxyhemoglobin Carboxyhemoglobin Sodium Potassium Chloride Carbon Dioxide BUN Creatinine Glucose POC Glucose 122 H 121 H 23 L Lactic Acid Calcium Phosphorus Magnesium Total Bilirubin AST ALT Ammonia Lactate Dehydrogenase Total Creatine Kinase CK-MB (CK-2) Troponin T NT-Pro-B Natriuret Pep Total Protein Albumin Triglycerides TSH Arterial Blood Glucose Arterial Blood Ionized Calcium Urine pH Urine WBC (Auto) Urine Creatinine 10/18/20 10/18/20 10/18/20 00:16 03:27 03:27 WBC RBC Hgb 11.7 L Hct RDW Lymph % (Auto) [place] % (Auto) Lymph # (Auto) [place] # (Auto) Seg Neutrophils % Lymphocytes % (Manual) Monocytes % (Manual) Seg Neutrophils # Seg Neutrophils # Man Lymphocytes # (Manual) Monocytes # (Manual) D-Dimer Heparin Anti-Xa Level ABG pH POC ABG pCO2 POC ABG pO2 ABG pO2 ABG HCO3 ABG O2 Saturation ABG Base Excess ABG Hemoglobin ABG Oxyhemoglobin ABG Sodium ABG Potassium ABG Chloride ABG Glucose VBG pH Oxyhemoglobin Carboxyhemoglobin Sodium Potassium Chloride 97.6 L Carbon Dioxide BUN 90 H Creatinine 3.3 H Glucose 146 H POC Glucose 134 H Lactic Acid Calcium Phosphorus Magnesium Total Bilirubin 1.70 H AST ALT Ammonia Lactate Dehydrogenase Total Creatine Kinase CK-MB (CK-2) Troponin T NT-Pro-B Natriuret Pep Total Protein Albumin 3.1 L Triglycerides TSH Arterial Blood Glucose Arterial Blood Ionized Calcium Urine pH Urine WBC (Auto) Urine Creatinine 10/18/20 10/18/20 10/18/20 05:09 11:19 17:15 WBC RBC Hgb Hct RDW Lymph % (Auto) [place] % (Auto) Lymph # (Auto) [place] # (Auto) Seg Neutrophils % Lymphocytes % (Manual) Monocytes % (Manual) Seg Neutrophils # Seg Neutrophils # Man Lymphocytes # (Manual) Monocytes # (Manual) D-Dimer Heparin Anti-Xa Level ABG pH POC ABG pCO2 POC ABG pO2 ABG pO2 ABG HCO3 ABG O2 Saturation ABG Base Excess ABG Hemoglobin ABG Oxyhemoglobin ABG Sodium ABG Potassium ABG Chloride ABG Glucose VBG pH Oxyhemoglobin Carboxyhemoglobin Sodium Potassium Chloride Carbon Dioxide BUN Creatinine Glucose POC Glucose 144 H 145 H 151 H Lactic Acid Calcium Phosphorus Magnesium Total Bilirubin AST ALT Ammonia Lactate Dehydrogenase Total Creatine Kinase CK-MB (CK-2) Troponin T NT-Pro-B Natriuret Pep Total Protein Albumin Triglycerides TSH Arterial Blood Glucose Arterial Blood Ionized Calcium Urine pH Urine WBC (Auto) Urine Creatinine 10/18/20 10/18/20 10/19/20 23:16 Unknown 04:55 WBC RBC Hgb Hct RDW Lymph % (Auto) [place] % (Auto) Lymph # (Auto) [place] # (Auto) Seg Neutrophils % Lymphocytes % (Manual) Monocytes % (Manual) Seg Neutrophils # Seg Neutrophils # Man Lymphocytes # (Manual) Monocytes # (Manual) D-Dimer Heparin Anti-Xa Level ABG pH POC ABG pCO2 POC ABG pO2 ABG pO2 ABG HCO3 ABG O2 Saturation ABG Base Excess ABG Hemoglobin ABG Oxyhemoglobin ABG Sodium ABG Potassium ABG Chloride ABG Glucose VBG pH Oxyhemoglobin Carboxyhemoglobin Sodium Potassium Chloride Carbon Dioxide BUN 104 H Creatinine 3.1 H Glucose 139 H POC Glucose 123 H Lactic Acid Calcium Phosphorus Magnesium Total Bilirubin AST ALT Ammonia Lactate Dehydrogenase Total Creatine Kinase CK-MB (CK-2) Troponin T NT-Pro-B Natriuret Pep Total Protein Albumin Triglycerides TSH Arterial Blood Glucose Arterial Blood Ionized Calcium Urine pH Urine WBC (Auto) 115.0 H Urine Creatinine 10/19/20 10/19/20 10/19/20 04:55 11:35 13:14 WBC 15.1 H RBC Hgb 11.1 L Hct 34.4 L RDW Lymph % (Auto) 4.2 L [place] % (Auto) 11.9 H Lymph # (Auto) 0.6 L [place] # (Auto) 1.8 H Seg Neutrophils % 82.0 H Lymphocytes % (Manual) Monocytes % (Manual) Seg Neutrophils # 12.4 H Seg Neutrophils # Man Lymphocytes # (Manual) Monocytes # (Manual) D-Dimer Heparin Anti-Xa Level ABG pH POC ABG pCO2 POC ABG pO2 ABG pO2 ABG HCO3 ABG O2 Saturation ABG Base Excess ABG Hemoglobin ABG Oxyhemoglobin ABG Sodium ABG Potassium ABG Chloride ABG Glucose VBG pH Oxyhemoglobin Carboxyhemoglobin Sodium Potassium Chloride Carbon Dioxide BUN Creatinine Glucose POC Glucose 136 H Lactic Acid Calcium Phosphorus Magnesium Total Bilirubin AST ALT Ammonia Lactate Dehydrogenase Total Creatine Kinase CK-MB (CK-2) Troponin T NT-Pro-B Natriuret Pep Total Protein Albumin Triglycerides TSH Arterial Blood Glucose Arterial Blood Ionized Calcium Urine pH Urine WBC (Auto) Urine Creatinine 93.7 H 10/19/20 10/19/20 10/20/20 17:53 23:39 04:30 WBC RBC Hgb Hct RDW Lymph % (Auto) [place] % (Auto) Lymph # (Auto) [place] # (Auto) Seg Neutrophils % Lymphocytes % (Manual) Monocytes % (Manual) Seg Neutrophils # Seg Neutrophils # Man Lymphocytes # (Manual) Monocytes # (Manual) D-Dimer Heparin Anti-Xa Level ABG pH POC ABG pCO2 POC ABG pO2 ABG pO2 ABG HCO3 ABG O2 Saturation ABG Base Excess ABG Hemoglobin ABG Oxyhemoglobin ABG Sodium ABG Potassium ABG Chloride ABG Glucose VBG pH Oxyhemoglobin Carboxyhemoglobin Sodium Potassium Chloride Carbon Dioxide BUN 104 H Creatinine 2.8 H Glucose 151 H POC Glucose 137 H 133 H Lactic Acid Calcium Phosphorus Magnesium Total Bilirubin AST ALT Ammonia Lactate Dehydrogenase Total Creatine Kinase CK-MB (CK-2) Troponin T NT-Pro-B Natriuret Pep Total Protein Albumin Triglycerides TSH Arterial Blood Glucose Arterial Blood Ionized Calcium Urine pH Urine WBC (Auto) Urine Creatinine 10/20/20 10/20/20 10/20/20 04:30 05:38 11:34 WBC 17.9 H RBC Hgb 11.7 L Hct RDW Lymph % (Auto) [place] % (Auto) Lymph # (Auto) [place] # (Auto) Seg Neutrophils % Lymphocytes % (Manual) Monocytes % (Manual) Seg Neutrophils # Seg Neutrophils # Man Lymphocytes # (Manual) Monocytes # (Manual) D-Dimer Heparin Anti-Xa Level ABG pH POC ABG pCO2 POC ABG pO2 ABG pO2 ABG HCO3 ABG O2 Saturation ABG Base Excess ABG Hemoglobin ABG Oxyhemoglobin ABG Sodium ABG Potassium ABG Chloride ABG Glucose VBG pH Oxyhemoglobin Carboxyhemoglobin Sodium Potassium Chloride Carbon Dioxide BUN Creatinine Glucose POC Glucose 164 H 148 H Lactic Acid Calcium Phosphorus Magnesium Total Bilirubin AST ALT Ammonia Lactate Dehydrogenase Total Creatine Kinase CK-MB (CK-2) Troponin T NT-Pro-B Natriuret Pep Total Protein Albumin Triglycerides TSH Arterial Blood Glucose Arterial Blood Ionized Calcium Urine pH Urine WBC (Auto) Urine Creatinine 10/20/20 10/20/20 10/20/20 17:40 20:20 23:29 WBC RBC Hgb Hct RDW Lymph % (Auto) [place] % (Auto) Lymph # (Auto) [place] # (Auto) Seg Neutrophils % Lymphocytes % (Manual) Monocytes % (Manual) Seg Neutrophils # Seg Neutrophils # Man Lymphocytes # (Manual) Monocytes # (Manual) D-Dimer Heparin Anti-Xa Level ABG pH 7.292 L POC ABG pCO2 68.5 H POC ABG pO2 ABG pO2 ABG HCO3 ABG O2 Saturation ABG Base Excess ABG Hemoglobin 11.6 L ABG Oxyhemoglobin ABG Sodium ABG Potassium ABG Chloride ABG Glucose 145 H VBG pH Oxyhemoglobin Carboxyhemoglobin Sodium Potassium Chloride Carbon Dioxide BUN Creatinine Glucose POC Glucose 130 H 136 H Lactic Acid Calcium Phosphorus Magnesium Total Bilirubin AST ALT Ammonia Lactate Dehydrogenase Total Creatine Kinase CK-MB (CK-2) Troponin T NT-Pro-B Natriuret Pep Total Protein Albumin Triglycerides TSH Arterial Blood Glucose 145 H Arterial Blood Ionized Calcium Urine pH Urine WBC (Auto) Urine Creatinine 10/21/20 10/21/20 10/21/20 04:20 06:26 06:30 WBC RBC Hgb Hct RDW Lymph % (Auto) [place] % (Auto) Lymph # (Auto) [place] # (Auto) Seg Neutrophils % Lymphocytes % (Manual) Monocytes % (Manual) Seg Neutrophils # Seg Neutrophils # Man Lymphocytes # (Manual) Monocytes # (Manual) D-Dimer Heparin Anti-Xa Level ABG pH 7.262 L POC ABG pCO2 72.4 H POC ABG pO2 81.6 L ABG pO2 ABG HCO3 ABG O2 Saturation ABG Base Excess ABG Hemoglobin 11.6 L ABG Oxyhemoglobin ABG Sodium ABG Potassium ABG Chloride ABG Glucose 140 H VBG pH Oxyhemoglobin Carboxyhemoglobin Sodium Potassium Chloride Carbon Dioxide 33 H BUN 104 H Creatinine 2.9 H Glucose 153 H POC Glucose 128 H Lactic Acid Calcium Phosphorus Magnesium Total Bilirubin AST ALT Ammonia Lactate Dehydrogenase Total Creatine Kinase CK-MB (CK-2) Troponin T NT-Pro-B Natriuret Pep Total Protein Albumin Triglycerides TSH Arterial Blood Glucose 140 H Arterial Blood Ionized Calcium Urine pH Urine WBC (Auto) Urine Creatinine 10/21/20 10/21/20 10/21/20 06:30 11:24 17:21 WBC 13.3 H RBC Hgb 10.7 L Hct 32.7 L RDW Lymph % (Auto) [place] % (Auto) Lymph # (Auto) [place] # (Auto) Seg Neutrophils % Lymphocytes % (Manual) Monocytes % (Manual) Seg Neutrophils # Seg Neutrophils # Man Lymphocytes # (Manual) Monocytes # (Manual) D-Dimer Heparin Anti-Xa Level ABG pH POC ABG pCO2 POC ABG pO2 ABG pO2 ABG HCO3 ABG O2 Saturation ABG Base Excess ABG Hemoglobin ABG Oxyhemoglobin ABG Sodium ABG Potassium ABG Chloride ABG Glucose VBG pH Oxyhemoglobin Carboxyhemoglobin Sodium Potassium Chloride Carbon Dioxide BUN Creatinine Glucose POC Glucose 178 H 138 H Lactic Acid Calcium Phosphorus Magnesium Total Bilirubin AST ALT Ammonia Lactate Dehydrogenase Total Creatine Kinase CK-MB (CK-2) Troponin T NT-Pro-B Natriuret Pep Total Protein Albumin Triglycerides TSH Arterial Blood Glucose Arterial Blood Ionized Calcium Urine pH Urine WBC (Auto) Urine Creatinine 10/22/20 10/22/20 10/22/20 00:05 04:30 06:15 WBC RBC Hgb Hct RDW Lymph % (Auto) [place] % (Auto) Lymph # (Auto) [place] # (Auto) Seg Neutrophils % Lymphocytes % (Manual) Monocytes % (Manual) Seg Neutrophils # Seg Neutrophils # Man Lymphocytes # (Manual) Monocytes # (Manual) D-Dimer Heparin Anti-Xa Level ABG pH 7.225 L POC ABG pCO2 76.6 H POC ABG pO2 ABG pO2 ABG HCO3 ABG O2 Saturation ABG Base Excess ABG Hemoglobin 11.1 L ABG Oxyhemoglobin ABG Sodium ABG Potassium ABG Chloride ABG Glucose 151 H VBG pH Oxyhemoglobin Carboxyhemoglobin Sodium Potassium Chloride Carbon Dioxide 32 H BUN 103 H Creatinine 2.7 H Glucose 151 H POC Glucose 135 H Lactic Acid Calcium Phosphorus Magnesium Total Bilirubin AST ALT Ammonia Lactate Dehydrogenase Total Creatine Kinase CK-MB (CK-2) Troponin T NT-Pro-B Natriuret Pep Total Protein Albumin Triglycerides TSH Arterial Blood Glucose 151 H Arterial Blood Ionized Calcium Urine pH Urine WBC (Auto) Urine Creatinine 10/22/20 10/22/20 10/22/20 06:18 11:34 11:44 WBC RBC Hgb Hct RDW Lymph % (Auto) [place] % (Auto) Lymph # (Auto) [place] # (Auto) Seg Neutrophils % Lymphocytes % (Manual) Monocytes % (Manual) Seg Neutrophils # Seg Neutrophils # Man Lymphocytes # (Manual) Monocytes # (Manual) D-Dimer Heparin Anti-Xa Level ABG pH 7.278 L POC ABG pCO2 67.8 H POC ABG pO2 ABG pO2 ABG HCO3 ABG O2 Saturation ABG Base Excess ABG Hemoglobin 10.2 L ABG Oxyhemoglobin ABG Sodium ABG Potassium ABG Chloride ABG Glucose 172 H VBG pH Oxyhemoglobin Carboxyhemoglobin Sodium Potassium Chloride Carbon Dioxide BUN Creatinine Glucose POC Glucose 137 H 147 H Lactic Acid Calcium Phosphorus Magnesium Total Bilirubin AST ALT Ammonia Lactate Dehydrogenase Total Creatine Kinase CK-MB (CK-2) Troponin T NT-Pro-B Natriuret Pep Total Protein Albumin Triglycerides TSH Arterial Blood Glucose 172 H Arterial Blood Ionized Calcium Urine pH Urine WBC (Auto) Urine Creatinine 10/22/20 10/22/20 10/23/20 17:40 23:55 05:11 WBC RBC Hgb Hct RDW Lymph % (Auto) [place] % (Auto) Lymph # (Auto) [place] # (Auto) Seg Neutrophils % Lymphocytes % (Manual) Monocytes % (Manual) Seg Neutrophils # Seg Neutrophils # Man Lymphocytes # (Manual) Monocytes # (Manual) D-Dimer Heparin Anti-Xa Level ABG pH POC ABG pCO2 63.6 H POC ABG pO2 81.2 L ABG pO2 ABG HCO3 ABG O2 Saturation ABG Base Excess ABG Hemoglobin 10.6 L ABG Oxyhemoglobin ABG Sodium ABG Potassium ABG Chloride 109.0 H ABG Glucose 149 H VBG pH Oxyhemoglobin Carboxyhemoglobin Sodium Potassium Chloride Carbon Dioxide BUN Creatinine Glucose POC Glucose 141 H 139 H Lactic Acid Calcium Phosphorus Magnesium Total Bilirubin AST ALT Ammonia Lactate Dehydrogenase Total Creatine Kinase CK-MB (CK-2) Troponin T NT-Pro-B Natriuret Pep Total Protein Albumin Triglycerides TSH Arterial Blood Glucose 149 H Arterial Blood Ionized Calcium Urine pH Urine WBC (Auto) Urine Creatinine 10/23/20 10/23/20 10/23/20 05:39 06:00 11:32 WBC RBC Hgb Hct RDW Lymph % (Auto) [place] % (Auto) Lymph # (Auto) [place] # (Auto) Seg Neutrophils % Lymphocytes % (Manual) Monocytes % (Manual) Seg Neutrophils # Seg Neutrophils # Man Lymphocytes # (Manual) Monocytes # (Manual) D-Dimer Heparin Anti-Xa Level ABG pH POC ABG pCO2 POC ABG pO2 ABG pO2 ABG HCO3 ABG O2 Saturation ABG Base Excess ABG Hemoglobin ABG Oxyhemoglobin ABG Sodium ABG Potassium ABG Chloride ABG Glucose VBG pH Oxyhemoglobin Carboxyhemoglobin Sodium 146 H Potassium Chloride Carbon Dioxide 35 H BUN 92 H Creatinine 2.0 H Glucose 144 H POC Glucose 139 H 176 H Lactic Acid Calcium Phosphorus Magnesium Total Bilirubin AST ALT Ammonia Lactate Dehydrogenase Total Creatine Kinase CK-MB (CK-2) Troponin T NT-Pro-B Natriuret Pep Total Protein Albumin Triglycerides TSH Arterial Blood Glucose Arterial Blood Ionized Calcium Urine pH Urine WBC (Auto) Urine Creatinine 10/23/20 10/23/20 10/24/20 11:34 17:55 05:33 WBC RBC Hgb Hct RDW Lymph % (Auto) [place] % (Auto) Lymph # (Auto) [place] # (Auto) Seg Neutrophils % Lymphocytes % (Manual) Monocytes % (Manual) Seg Neutrophils # Seg Neutrophils # Man Lymphocytes # (Manual) Monocytes # (Manual) D-Dimer Heparin Anti-Xa Level ABG pH POC ABG pCO2 POC ABG pO2 ABG pO2 ABG HCO3 ABG O2 Saturation ABG Base Excess ABG Hemoglobin ABG Oxyhemoglobin ABG Sodium ABG Potassium ABG Chloride ABG Glucose VBG pH Oxyhemoglobin Carboxyhemoglobin Sodium 147 H Potassium Chloride Carbon Dioxide 32 H BUN 76 H Creatinine 1.7 H Glucose 172 H POC Glucose 173 H 135 H Lactic Acid Calcium Phosphorus Magnesium Total Bilirubin AST ALT Ammonia Lactate Dehydrogenase Total Creatine Kinase CK-MB (CK-2) Troponin T NT-Pro-B Natriuret Pep Total Protein Albumin Triglycerides TSH Arterial Blood Glucose Arterial Blood Ionized Calcium Urine pH Urine WBC (Auto) Urine Creatinine 10/24/20 05:41 WBC RBC Hgb Hct RDW Lymph % (Auto) [place] % (Auto) Lymph # (Auto) [place] # (Auto) Seg Neutrophils % Lymphocytes % (Manual) Monocytes % (Manual) Seg Neutrophils # Seg Neutrophils # Man Lymphocytes # (Manual) Monocytes # (Manual) D-Dimer Heparin Anti-Xa Level ABG pH POC ABG pCO2 POC ABG pO2 ABG pO2 ABG HCO3 ABG O2 Saturation ABG Base Excess ABG Hemoglobin ABG Oxyhemoglobin ABG Sodium ABG Potassium ABG Chloride ABG Glucose VBG pH Oxyhemoglobin Carboxyhemoglobin Sodium Potassium Chloride Carbon Dioxide BUN Creatinine Glucose POC Glucose 156 H Lactic Acid Calcium Phosphorus Magnesium Total Bilirubin AST ALT Ammonia Lactate Dehydrogenase Total Creatine Kinase CK-MB (CK-2) Troponin T NT-Pro-B Natriuret Pep Total Protein Albumin Triglycerides TSH Arterial Blood Glucose Arterial Blood Ionized Calcium Urine pH Urine WBC (Auto) Urine Creatinine Allied health notes reviewed: RT
[2020-10-24] MEDS: FLUTICASONE PROPIONATE NASAL SPRAY 16 GM NS SCH ×2 (09:56→21:33)
[2020-10-24] MEDS: HEPARIN 5,000 UNIT/1 ML VIAL SUB-Q SCH ×2 (10:13→21:17)
--- NOTE | 2020-10-24 11:46 | Progress Note ---
<JOI TAMEZSee - Last Filed: 10/24/20 12:10> Assessment and Plan Assessment and plan: -Infectious disease, CCM, GI, nephrology, cardiology consulted, patient recommendations -Antibiotic therapy -10/18 recultured (blood/sputum/nasal discharge and urinalysis), tracheal aspirate with MRSA -Linezolid -Continue antihypertensive regimen (changed to p.o.), titrate as needed -s/p IV amiodarone for A. fib/a flutter now on p.o. beta-shital -Trend CBC, BMP -Urinary suggestive of prerenal. s/p normal saline for 3 L -Continue mechanical ventilation, wean as tolerated, VAP bundle -Avoid nephrotoxic medications, strict intake and output, renal ultrasound shows no obstruction -Trend LFTs -10/10 echocardiogram shows left internal systolic function normal, moderate concentric left ventricle hypertrophy, mild to side diastolic dysfunction, LVEF 55 to 60% with no pericardial effusion -Bilateral Doppler ultrasound negative for DVT/SVT which shows bilateral popliteal cysts -MRI Brain pending GI/DVT prophylaxis: SCDs to bilateral lower extremities while in bed, PPI, Heparin subq Dispo: ICU The high probability of a clinically significant, sudden or life threatening deterioration of the [multi] system(s) required my full and direct attention, intervention and personal management. The aggregate critical care time was [35] minutes. This time is in addition to time spent performing reported procedures but includes the following: [x] Data Review and interpretation [x] Patient assessment and monitoring of vital signs [x] Documentation [x] Medication orders and management History Interval history: This is a 55-year-old male with hypertension, asthma, obesity in the emergency by presents the emergency department on 10/10 after receiving a Covid vaccine being found unresponsive in his car in the emergency room by with no pulse and ACLS protocol was initiated from his car to emergency room #21 where it was continued. Patient was intubated after ROSC was achieved and a central line was placed and the patient was initiated on pressors. In the emergency room patient seems to have seizure-like activity and then collapsed and was unresponsive with no palpable pulse and ACLS was again initiated patient with achievement of ROSC. Patient again coded with ACLS protocol in the CT room. Upon arrival to the ICU patient again coded and ROSC was achieved and he was chante vicki on epinephrine, Lasix, heparin and sodium bicarbonate drip and sedated with propofol. An NG tube was placed, A-line was placed. Patient was admitted to the hospitalist service with consult to [facility], nephrology, infectious disease and cardiology. Sepsis Right-sided pneumonia MRSA in tracheal aspirate NSTEMI type II Acute heart failure Hypernatremia Afib/Alutter Leukocytosis Acute hypoxic respiratory failure Acute kidney injury Transaminitis HTN Obesity 10/11: Patient COVID-19 PCR is pending and he remains on mechanical ventilation, examination on assist control 400/30/12/0.95. Patient is scheduled for an echocardiogram and we will obtain bilateral lower extremity Doppler ultrasound given elevated D-dimer. Patient was supposed to have a CTA chest when he coded yesterday. We will begin trickle feeding. This morning patient was on a heparin drip and was noted to have bloody drainage from his NG tube. Heparin drip was discontinued. 10/12: Patient remains on propofol and Lasix drip at the time my examination and he is on assist control 400/25/12/0.60. Patient is hypokalemic this morning which was repleted. Nephrology discontinued Lasix drip and Diamox. Patient is hypertensive and has been started on hydralazine and beta-shital IV. He has been titrated off his vasopressors since yesterday. Vancomycin discontinued. Patient is currently on cefepime and azithromycin. 10/13: Sedation vacation attempted today and patient was not responsive to verbal or painful stimuli, does not track or focus or follow commands. This morning the patient has some respiratory alkalosis on ABG, hypernatremia and metabolic alkalosis on BMP. His kidney functions has improved slightly. Patient still has leukocytosis and infectious disease was like to continue antibiotic therapy. GI evaluated the patient yesterday and started the patient on PPI does not plan to scope at this time. At the time my examination patient assist-control 400/20/12/0.40 and sedated on propofol at 20. 4/2: GI has recommended a CT abdomen since there is increased output from OG tube and an MRI brain without contrast has been ordered per neurology recommendations. EEG is pending and the patient has been started on Keppra per neurology.. Nutrition has been consulted for initiation of parenteral nutritio n. Patient remains sedated with propofol and his hypernatremia, leukocytosis, acute kidney injury and metabolic alkalosis is improving. Patient has hypokalemia today which was repleted. At the time of my examination patient was on assist control 400/14/10/0.40 and CCM has dropped his rate to 12 and PEEP to 8. We have labs ordered for a.m. He was given a clonidine patch given persistent hypertension and he remains on D5 water per nephrology. 10/15: This morning patient was started to have a low-grade fever and he will continue antibiotic therapy per infectious disease. He will remove Tuttle catheter today and place a condom cath. Patient's renal function is worsening with a BUN/creatinine of 57/2.4 today and he has hyperphosphatemia at 5.2. This morning the time my examination patient is sedated on fentanyl and has TPN infusing. He is on assist control 400/12/8/0.35. Per GI we will start trial of tube feedings initiation has been reconsulted for orders. 10/18: Patient was febrile overnight and infectious disease has recultured (blood/sputum/right nostril culture) and sent in urinalysis. Cefepime was extended due to high fever and was started on vancomycin. Tube feeding is at goal and we will discontinue his parenteral nutrition. Patient is unable to obtain his MRI due to increased hypoxia and nasal secretions. He will be started on CPAP trials today. This time I examination patient was sedated on fentanyl and had PPN running at 42. His renal function tests have worsened and now has hyperchloremia. Hypernatremia has resolved. 10/19: Patient's T-max was 100.2 and he was pancultured yesterday, remains on antibiotic therapy and still has copious drainage from his nostrils. Patient still has leukocytosis however his/creatinine improved slightly to 3.1 from 3.3. Patient's urinalysis from yesterday shows pyuria. Patient's tracheal aspirate from yesterday grew Staph aureus. Patient is on cefepime and vancomycin. 10/20: This morning at the time my examination patient was CPAP trial of 04/19 and his T-max was 100.9. Patient sedated on fentanyl at 2 just received IV push fentanyl for tachycardia. Today his creatinine is 2.8 from 3.1 yesterday. Infectious disease has stopped cefepime and vancomycin and started linezolid and MRSA PCR is pending. Today removed his NG tube and replaced it with OG tube. We will keep the patient normal saline at 75 mL's per hour for 3 L. Patient developed A. fib/a flutter overnight and cardiology has increased his Lopressor and IV amiodarone. We requested neurology evaluation today. 10/21: Cardiology we will increase Lopressor to 3 times daily and discontinue his amiodarone drip. Infectious disease would like a sinus CT when feasible however patient did have a moment of desatting earlier this week when we attempted MRI brain. And again yesterday when we attempted a "trial run" with positioning at bedside Patient is on linezolid for 10 days per ID. 10/22/20; patient was seen and evaluated this morning, patient had low-grade fever overnight. Patient is on Lopressor per cardiology recommendation. Patient did not follow commands, no improvement in mental status. Evaluated by neurology yesterday and neurology once MRI or CAT scan but cannot be done because patient desats when he lies flat. Patient is on linezolid per ID recommendation. Continue NG tube feeding. Continue with Keppra. Patient is on assist control with PEEP of 6. Management plan was discussed with his yesterday. 10/23/2020; patient is on Zyvox for positive MRSA from tracheal aspirate and nasal secretion culture. Patient's mentation did not improve and does not follow commands. He was reevaluated by neurology and recommend MRI once patient is able to tolerate. MRI could not be done, CT scan could not be done because the patient could not lie flat. Clinically patient looks like she has anoxic encephalopathy. Patient is on NG tube feeding and on mechanical ventilation. Patient is on Keppra. Management plan was discussed with his . 10/24: This morning the patient is on AC TV 400,R 16, Peep 6 and FiO2 of 30% and sedated on 1mcg of Fentayl. He is hypernatremic and his kidney function tests have slightly improved. RN will attempt to obtain MRI Brain today since the patient was able to tolerate a "trial run" of being flat. [facility] plans to resume CPAP trials once MRI obtained. Hospitalist Physical - Constitutional Vitals: Temp Pulse Resp BP Pulse Ox 98.2 F 66 16 157/75 99 10/24/20 08:00 10/24/20 11:27 10/24/20 10:00 10/24/20 11:27 10/24/20 11:27 General appearance: Present: no acute distress, well-nourished, other (Resting comfortably on mechanical ventilation, opens eye spontanously) - EENT Eyes: Present: PERRL ENT: ulcerations - Neck Neck: Absent: masses or JVD, cervical LAD - Respiratory Respiratory effort: normal Respiratory: bilateral: diminished - Cardiovascular Rhythm: regular Heart Sounds: Present: S1 & S2. Absent: systolic murmur, diastolic murmur - Extremities Extremities: no ischemia, pulses intact, pulses symmetrical, normal temperature, normal color Extremity abnormal: edema Peripheral Pulses: within normal limits - Abdominal General gastrointestinal: soft, non-tender, non-distended, normal bowel sounds - Integumentary Integumentary: Present: warm, dry - Psychiatric Psychiatric: other (opens eyes spontanously, does not follow commands) - Neurologic Neurologic: other (opens eyes spontanously, does not follow commands, does not track/focus) - Allied Health Allied health notes reviewed: nursing, RT, social work HEART Score - HEART Score EKG: Non-specific Age: 45-65 Troponin: Troponin T 0.125 ng/mL (0.00-0.029) H* D 10/12/20 04:00 Troponin: 1-3x normal limit - Critical Actions Critical Actions: 4-6 pts:12-16.6% risk of adverse cardiac event. Should be admitted Results - Labs CBC & Chem 7: 10/21/20 06:30 10/24/20 05:33 Labs: Laboratory Last Values WBC 13.3 K/mm3 (4.5-11.0) H 10/21/20 06:30 RBC 3.68 M/mm3 (3.65-5.03) 10/21/20 06:30 Hgb 10.7 gm/dl (11.8-15.2) L 10/21/20 06:30 Hct 32.7 % (35.5-45.6) L 10/21/20 06:30 MCV 89 fl (84-94) 10/21/20 06:30 MCH 29 pg (28-32) 10/21/20 06:30 MCHC 33 % (32-34) 10/21/20 06:30 RDW 14.6 % (13.2-15.2) 10/21/20 06:30 Plt Count 255 K/mm3 (140-440) 10/21/20 06:30 Lymph % (Auto) 4.2 % (13.4-35.0) L 10/19/20 04:55 [place]erry % (Auto) 11.9 % (0.0-7.3) H 10/19/20 04:55 Eos % (Auto) 1.6 % (0.0-4.3) 10/19/20 04:55 Baso % (Auto) 0.3 % (0.0-1.8) 10/19/20 04:55 Lymph # (Auto) 0.6 K/mm3 (1.2-5.4) L 10/19/20 04:55 [place]erry # (Auto) 1.8 K/mm3 (0.0-0.8) H 10/19/20 04:55 Eos # (Auto) 0.2 K/mm3 (0.0-0.4) 10/19/20 04:55 Baso # (Auto) 0.1 K/mm3 (0.0-0.1) 10/19/20 04:55 Add Manual Diff Complete 10/10/20 18:18 Total Counted 100 10/10/20 18:18 Seg Neutrophils % 82.0 % (40.0-70.0) H 10/19/20 04:55 Seg Neuts % (Manual) 60.0 % (40.0-70.0) 10/10/20 18:18 Band Neutrophils % 27.0 % 10/10/20 18:18 Lymphocytes % (Manual) 4.0 % (13.4-35.0) L 10/10/20 18:18 Monocytes % (Manual) 9.0 % (0.0-7.3) H 10/10/20 18:18 Eosinophils % (Manual) 4.0 % (0.0-4.3) 10/10/20 10:48 Metamyelocytes % 1.0 % 10/10/20 10:48 Nucleated RBC % Not Reportable 10/10/20 18:18 Seg Neutrophils # 12.4 K/mm3 (1.8-7.7) H 10/19/20 04:55 Seg Neutrophils # Man 13.8 K/mm3 (1.8-7.7) H 10/10/20 18:18 Band Neutrophils # 6.2 K/mm3 10/10/20 18:18 Lymphocytes # (Manual) 0.9 K/mm3 (1.2-5.4) L 10/10/20 18:18 Abs React Lymphs (Man) 0.0 K/mm3 10/10/20 18:18 Monocytes # (Manual) 2.1 K/mm3 (0.0-0.8) H 10/10/20 18:18 Eosinophils # (Manual) 0.0 K/mm3 (0.0-0.4) 10/10/20 18:18 Basophils # (Manual) 0.0 K/mm3 (0.0-0.1) 10/10/20 18:18 Metamyelocytes # 0.0 K/mm3 10/10/20 18:18 Myelocytes # 0.0 K/mm3 10/10/20 18:18 Promyelocytes # 0.0 K/mm3 10/10/20 18:18 Blast Cells # 0.0 K/mm3 10/10/20 18:18 WBC Morphology Not Reportable 10/10/20 18:18 Hypersegmented Neuts Not Reportable 10/10/20 18:18 Hyposegmented Neuts Not Reportable 10/10/20 18:18 Hypogranular Neuts Not Reportable 10/10/20 18:18 Smudge Cells Not Reportable 10/10/20 18:18 Toxic Granulation Not Reportable 10/10/20 18:18 Toxic Vacuolation Not Reportable 10/10/20 18:18 Dohle Bodies Not Reportable 10/10/20 18:18 Pelger-Huet Anomaly Not Reportable 10/10/20 18:18 Dionicio Rods Not Reportable 10/10/20 18:18 Platelet Estimate Consistent w auto 10/10/20 18:18 Clumped Platelets Not Reportable 10/10/20 18:18 Plt Clumps, EDTA Not Reportable 10/10/20 18:18 Large Platelets Rare 10/10/20 18:18 Giant Platelets Rare 10/10/20 18:18 Platelet Satelliting Not Reportable 10/10/20 18:18 Plt Morphology Comment Not Reportable 10/10/20 18:18 RBC Morphology Not Reportable 10/10/20 18:18 Dimorphic RBCs Not Reportable 10/10/20 18:18 Polychromasia Not Reportable 10/10/20 18:18 Hypochromasia Not Reportable 10/10/20 18:18 Poikilocytosis Not Reportable 10/10/20 18:18 Anisocytosis Not Reportable 10/10/20 18:18 Microcytosis Not Reportable 10/10/20 18:18 Macrocytosis Not Reportable 10/10/20 18:18 Spherocytes Not Reportable 10/10/20 18:18 Pappenheimer Bodies Not Reportable 10/10/20 18:18 Sickle Cells Not Reportable 10/10/20 18:18 Target Cells Not Reportable 10/10/20 18:18 Tear Drop Cells Not Reportable 10/10/20 18:18 Ovalocytes Not Reportable 10/10/20 18:18 Helmet Cells Not Reportable 10/10/20 18:18 [place] Bodies Not Reportable 10/10/20 18:18 [place] Rings Not Reportable 10/10/20 18:18 [place] Cells Not Reportable 10/10/20 18:18 Bite Cells Not Reportable 10/10/20 18:18 Crenated Cell Not Reportable 10/10/20 18:18 Elliptocytes Not Reportable 10/10/20 18:18 Acanthocytes (Spur) Not Reportable 10/10/20 18:18 Rouleaux Not Reportable 10/10/20 18:18 Hemoglobin C Crystals Not Reportable 10/10/20 18:18 Schistocytes Not Reportable 10/10/20 18:18 Malaria parasites Not Reportable 10/10/20 18:18 Mauricio Bodies Not Reportable 10/10/20 18:18 Hem Pathologist Commnt No 10/10/20 18:18 PT 13.8 Sec. (12.2-14.9) 10/10/20 18:18 INR 1.07 (0.87-1.13) 10/10/20 18:18 APTT 26.9 Sec. (24.2-36.6) 10/10/20 18:18 D-Dimer 679.5 ng/mlDDU (0-234) H 10/10/20 10:48 Heparin Anti-Xa Level 0.22 U.I./ml (0.3-0.7) L 10/11/20 08:35 ABG pH 7.334 (7.320-7.450) 10/23/20 05:11 POC ABG pCO2 63.6 mmHg (32.0-48.0) H 10/23/20 05:11 ABG pCO2 55.5 mm Hg 10/16/20 05:10 POC ABG pO2 81.2 mmHg (83-108) L 10/23/20 05:11 ABG pO2 104.5 mm Hg (80.0-90.0) H 10/16/20 05:10 POC ABG HCO3 33.1 10/23/20 05:11 ABG HCO3 35.1 mmol/L (20.0-26.0) H 10/16/20 05:10 ABG O2 Saturation 96.0 (0-100) 10/23/20 05:11 ABG O2 Content 10.8 (0.0-44) 10/16/20 05:10 POC ABG Base Excess 5.8 10/23/20 05:11 ABG Base Excess 9.5 mmol/L (-2.0-3.0) H 10/16/20 05:10 ABG Hemoglobin 10.6 (12.0-17.5) L 10/23/20 05:11 ABG Oxyhemoglobin 96.8 (94-98) 10/22/20 11:34 ABG Carboxyhemoglobin 1.9 % (0.0-5.0) 10/16/20 05:10 ABG Methemoglobin 0.1 (0.0-1.5) 10/22/20 11:34 ABG Sodium 143.6 mmol/L (136.0-145.0) 10/23/20 05:11 ABG Potassium 3.7 mmol/L (3.40-4.50) 10/23/20 05:11 ABG Chloride 109.0 mmol/L (98-107) H 10/23/20 05:11 ABG Glucose 149 mg/dL (65-95) H 10/23/20 05:11 VBG pH 6.870 (7.320-7.420) L* 10/10/20 10:48 Oxyhemoglobin 95.3 % (95.0-99.0) 10/16/20 05:10 Carboxyhemoglobin 0.7 (0.5-1.5) 10/22/20 11:34 FiO2 35 % 10/16/20 05:10 FiO2 % 30.0 10/23/20 05:11 Sodium 147 mmol/L (137-145) H 10/24/20 05:33 Potassium 3.9 mmol/L (3.6-5.0) 10/24/20 05:33 Chloride 107.0 mmol/L (98-107) 10/24/20 05:33 Carbon Dioxide 32 mmol/L (22-30) H 10/24/20 05:33 Anion Gap 12 mmol/L 10/24/20 05:33 BUN 76 mg/dL (9-20) H 10/24/20 05:33 Creatinine 1.7 mg/dL (0.8-1.3) H 10/24/20 05:33 Estimated GFR 51 ml/min 10/24/20 05:33 BUN/Creatinine Ratio 45 % 10/24/20 05:33 Glucose 172 mg/dL (75-100) H 10/24/20 05:33 POC Glucose 156 mg/dL (70-105) H 10/24/20 05:41 Hemoglobin A1c 6.0 % (4-6) 10/11/20 02:00 Lactic Acid 1.10 mmol/L (0.7-2.0) 10/13/20 04:52 Calcium 9.8 mg/dL (8.4-10.2) 10/24/20 05:33 Phosphorus 5.20 mg/dL (2.5-4.5) H D 10/17/20 03:32 Magnesium 2.30 mg/dL (1.7-2.3) 10/17/20 03:32 Ferritin 81.4 ng/mL (30.0-300.0) 10/10/20 10:48 Total Bilirubin 1.70 mg/dL (0.1-1.2) H 10/18/20 03:27 AST 37 units/L (5-40) 10/18/20 03:27 ALT 32 units/L (7-56) 10/18/20 03:27 Alkaline Phosphatase 97 units/L (35-129) 10/18/20 03:27 Ammonia 214.0 umol/L (25-60) H 10/10/20 10:46 Lactate Dehydrogenase 386 units/L (91-180) H 10/10/20 10:48 Total Creatine Kinase 1192 units/L (55-170) H 10/10/20 18:18 CK-MB (CK-2) 21.7 ng/mL (0.0-4.0) H 10/10/20 18:18 CK-MB (CK-2) Rel Index 1.8 (0-4) 10/10/20 18:18 Troponin T 0.125 ng/mL (0.00-0.029) H* D 10/12/20 04:00 C-Reactive Protein 0.90 mg/dL (0.00-1.30) 10/10/20 10:48 NT-Pro-B Natriuret Pep 1187 pg/mL (0-900) H 10/10/20 10:46 Total Protein 6.3 g/dL (6.3-8.2) 10/18/20 03:27 Albumin 3.1 g/dL (3.9-5) L 10/18/20 03:27 Albumin/Globulin Ratio 1.0 % 10/18/20 03:27 Triglycerides 278 mg/dL (2-149) H 10/13/20 04:52 Cholesterol 138 mg/dL (50-199) 10/10/20 18:18 LDL Cholesterol Direct 76 mg/dL (50-130) 10/10/20 18:18 HDL Cholesterol 49 mg/dL (40-59) 10/10/20 18:18 Cholesterol/HDL Ratio 2.81 % 10/10/20 18:18 Procalcitonin 4.98 ng/mL (<0.15) 10/15/20 04:12 TSH 6.260 mlU/mL (0.270-4.200) H 10/10/20 10:46 Arterial Blood Glucose 149 mg/dL (65-95) H 10/23/20 05:11 Arterial Blood Ionized Calcium 5.2 mg/dL (4.6-5.3) 10/23/20 05:11 Urine Color Angelica (Yellow) 10/18/20 Unknown Urine Turbidity Cloudy (Clear) 10/18/20 Unknown Urine pH 5.0 (5.0-7.0) 10/18/20 Unknown Ur Specific [place] 1.017 (1.003-1.030) 10/18/20 Unknown Urine Protein 100 mg/dl mg/dL (Negative) 10/18/20 Unknown Urine Glucose (UA) Neg mg/dL (Negative) 10/18/20 Unknown Urine Ketones Neg mg/dL (Negative) 10/18/20 Unknown Urine Blood Lg (Negative) 10/18/20 Unknown Urine Nitrite Neg (Negative) 10/18/20 Unknown Urine Bilirubin Neg (Negative) 10/18/20 Unknown Urine Urobilinogen 4.0 mg/dL (<2.0) 10/18/20 Unknown Ur Leukocyte Esterase Neg (Negative) 10/18/20 Unknown Urine WBC (Auto) 115.0 /HPF (0.0-6.0) H 10/18/20 Unknown Urine RBC (Auto) 98.0 /HPF (0.0-6.0) 10/18/20 Unknown U Epithel Cells (Auto) 2.0 /HPF (0-13.0) 10/18/20 Unknown Urine WBC Clumps 3+ /HPF 10/18/20 Unknown Urine Mucus Few /HPF 10/11/20 13:30 Urine Eosinophils None seen (None Seen) 10/11/20 13:30 Urine Creatinine 93.7 mg/dL (0.1-20.0) H 10/19/20 13:14 Urine Sodium 25 mmol/L 10/19/20 13:14 Urine Urea Nitrogen 845 10/19/20 13:14 Nasal Screen MRSA (PCR) Positive (Negative) 10/20/20 13:30 Random Vancomycin 5.8 ug/mL (0-40.0) 10/21/20 06:30 Urine Opiates Screen Negative 10/10/20 10:50 Urine Methadone Screen Negative 10/10/20 10:50 Ur Barbiturates Screen Negative 10/10/20 10:50 Ur Phencyclidine Scrn Negative 10/10/20 10:50 Ur Amphetamines Screen Negative 10/10/20 10:50 U Benzodiazepines Scrn Negative 10/10/20 10:50 Urine Cocaine Screen Negative 10/10/20 10:50 U Marijuana (THC) Screen Positive 10/10/20 10:50 Drugs of Abuse Note Disclamer 10/10/20 10:50 Plasma/Serum Alcohol < 0.01 % (0-0.07) 10/10/20 10:48 Coronavirus (PCR) Negative (Negative) 10/11/20 Unknown Blood Type AB POSITIVE 10/10/20 10:48 Antibody Screen Negative 10/10/20 10:48 Microbiology: Microbiology 10/20/20 12:35 Nose - Right Eye/Ear/Nose/Throat Culture - Final Methicillin Resist S. Aureus 10/18/20 11:00 Peripheral/Venous Blood Culture - Final NO GROWTH AFTER 5 DAYS 10/18/20 11:00 Peripheral/Venous Blood Culture - Final NO GROWTH AFTER 5 DAYS Tuttle/IV: Voiding Method Incontinent Active Medications - Current Medications Current Medications: Generic Name Dose Route Start Last Admin Trade Name Freq PRN Reason Stop Dose Admin Acetaminophen 650 mg 10/10/20 21:51 10/20/20 09:11 Acetaminophen 325 Mg Tab PO 650 mg Q4H PRN Administration Pain MILD(1-3)/Fever >100.5/SALVADOR Acetaminophen 650 mg 10/11/20 11:24 10/17/20 17:16 Acetaminophen 650 Mg Rect Supp MD 650 mg Q6H PRN Administration Fever >101 Albuterol 2.5 mg 10/11/20 13:12 Albuterol 2.5 Mg/3 Ml Nebu IH Q6HRT PRN Shortness Of Breath Lipase/Protease/Amylase 1 each 10/10/20 22:18 Lipase 10,500/Protease 25,000/Amylase 43,750 (Units) Dr Santana FEEDTUBE PRN PRN For Clogged Feeding Tube Clonidine HCl 0.3 mg 10/14/20 15:00 10/21/20 14:05 Clonidine Tts 0.3 Mg/24 Hr Patch TD 0.3 mg Fr PEPITO Administration Docusate Sodium 100 mg 10/16/20 22:00 10/24/20 09:49 Docusate Sodium 100 Mg/10 Ml Oral Liqd PO 100 mg BID PEPITO Administration Fentanyl 50 mcg 10/16/20 14:10 10/23/20 10:53 Fentanyl 100 Mcg/2 Ml Inj IV 50 mcg Q10MIN PRN Administration ANALGESIA Fluticasone Propionate 50 mcg 10/18/20 14:00 10/24/20 09:56 Fluticasone Propionate Nasal Patriot 16 Gm NS 50 mcg BID PEPTIO Administration Glycopyrrolate 2 mg 10/19/20 14:00 10/24/20 08:10 Glycopyrrolate 1 Mg Tab PO 2 mg Q6H PEPITO Administration Heparin Sodium (Porcine) 5,000 unit 10/11/20 22:00 10/24/20 10:13 Heparin 5,000 Unit/1 Ml Vial SUB-Q 5,000 unit Q12HR PEPITO Administration Hydralazine HCl 5 mg 10/15/20 20:25 10/24/20 08:20 Hydralazine 20 Mg/1 Ml Inj IV 5 mg Q6H PRN Administration Hypertension Hydralazine HCl 100 mg 10/24/20 09:30 10/24/20 10:16 Hydralazine 25 Mg Tab PO 100 mg Q8HR PEPITO Administration Hydromorphone HCl 0.5 mg 10/10/20 21:51 10/15/20 14:45 Hydromorphone 1 Mg/1 Ml Inj IV 0.5 mg Q3H PRN Administration Pain , Severe (7-10) Hydrophilic Ointment 1 applic 10/10/20 10:34 Lip Therapy Vaseline TP Q2HR PRN Dry Lips Levetiracetam 500 mg/ Dextrose 105 mls @ 400 mls/hr 10/13/20 18:00 10/24/20 05:19 IV 400 mls/hr Q12H PEPITO Administration Fentanyl Citrate 2,000 mcg in 100 mls @ 6.175 mls/hr 10/16/20 15:00 10/24/20 00:15 Fentanyl Drip Premix IV 1 mcg/kg/hr TITR PEPITO 6.175 mls/hr Administration Protocol 1 MCG/KG/HR Linezolid 600 mg in 300 mls @ 300 mls/hr 10/20/20 12:00 10/24/20 09:49 Zyvox 600mg/300ml IV 10/29/20 22:59 300 mls/hr Q12HR PEPITO Administration Protocol Lansoprazole 30 mg 10/24/20 10:00 10/24/20 09:49 Lansoprazole 30 Mg Solutab FEEDTUBE 30 mg BID PEPITO Administration Metoclopramide HCl 10 mg 10/10/20 21:51 Metoclopramide 10 Mg/2 Ml Inj IV Q6H PRN Nausea And Vomiting Metoprolol Tartrate 100 mg 10/21/20 14:00 10/24/20 08:10 Metoprolol Tartrate 50 Mg Tab PO 100 mg TID PEPITO Administration Multi-Ingred Cream/Lotion/Oil/Oint 1 applic 10/10/20 10:34 Mineral Oil/Petrolatum, White Ophth Oint 3.5 Gm OU Q4HR PRN Dry Eye(s) Ondansetron HCl 4 mg 10/10/20 21:51 Ondansetron 4 Mg/2 Ml Inj IV Q3H PRN Nausea And Vomiting Polyethylene Glycol 17 gm 10/17/20 10:00 10/24/20 09:49 Polyethylene Glycol 3350 17 Gm Powder PO 17 gm QDAY PEPITO Administration Scopolamine 1 each 10/17/20 10:00 10/23/20 09:35 Scopolamine Transdermal Patch 72 Hr TD 1 each Q3D PEPITO Administration Simple Syrup 15 ml 10/10/20 22:18 Simple Syrup 15 Ml FEEDTUBE PRN PRN Hypoglycemia Simple Syrup 30 ml 10/10/20 22:18 Simple Syrup 15 Ml FEEDTUBE PRN PRN Hypoglycemia Sodium Bicarbonate 325 mg 10/10/20 22:18 Sodium Bicarbonate 325 Mg Tab FEEDTUBE PRN PRN For Clogged Feeding Tube Sodium Chloride 10 ml 10/10/20 22:00 10/24/20 10:20 Sodium Chloride 0.9% 10 Ml Flush Syringe IV 10 ml BID PEPITO Administration Sodium Chloride 10 ml 10/10/20 21:51 10/21/20 09:56 Sodium Chloride 0.9% 10 Ml Flush Syringe IV 10 ml PRN PRN Administration LINE FLUSH Nutrition/Malnutrition Assess - Dietary Evaluation Nutrition/Malnutrition Findings: Nutrition Notes Start: 10/11/20 08:38 Freq: Status: Active Protocol: Document 10/21/20 13:44 CW (Rec: 10/21/20 13:48 CW [id number]) Nutrition Notes Current Diagnosis Acute Kidney Injury,Sepsis, Hypertension,Heart Failure, Respiratory Failure Other Pertinent Diagnosis GIB, pneu, Covid 19, MT, pulmonary edema Current Diet TF Nepro at 45 ml/hr Labs/Tests BUN 104 Cr 2.9 BG 153 Pertinent Medications Miralax Colace NS at 75ml/hr Height 6 ft Weight 129.7 kg [place] Body Weight (kg) 80.90 BMI 38.7 Weight change and time frame Weight gain noted, will monitor Weight Status Morbidly Obese Subjective/Other Information F/T for TF at goal and tolerance. TF now running at goal of 45 ml/hr and is being well tolerated Percent of energy/protein needs met: 100%/54% Current % PO Negligible Minimum of two criteria No physical signs of malnutrition #2 Nutrition Diagnosis Inadequate energy intake As Evidenced by Signs and Symptoms TF Providing 100% of kcal needs Diagnosis Progress(for reassessment Resolved documentation) #1 Nutrition Diagnosis Inadequate oral intake Diagnosis Progress(for reassessment Continues documentation) Is patient on ventilator? Yes Is Patient Ambulatory and/or Out of Bed No REE-([facility]-confined to bed) 2619.528 Kcal/Kg value to use for calculation 14 Approximate Energy Requirements Using 1816 kcal/Kg Calculation Used for Recommendations Kcal/kg Additional Notes protein needs: >162g (>2 kgIBW ) fluid needs: 1 ml/kcal or per MD Nutrition Intervention Change Diet Order: Continue TF Nutrition Support: Nepro at 45 ml/hr with a free water flush of 200 ml q4h Kcal 1,944 Protein (gm) 87 Fluid (mL) 785 Goal #1 Tolerate TF Goal #2 Meet at least 75% of kcal needs via TF Anticipated Discharge Needs: unable to determine at this time Follow-Up By: 10/25/20 Additional Comments F/U for TF tolerance <ANJEL CINTRON - Last Filed: 11/28/20 17:40> Assessment and Plan Assessment and plan: I saw and evaluated the patient. I agree with the findings and the plan of care as documented in the Nurse Practitioner's~note, with the following corrections and additions. Hospitalist Physical - Constitutional Vitals: Temp Pulse Resp BP Pulse Ox 99.8 F H 78 26 H 177/87 97 11/22/20 16:00 11/22/20 17:01 11/22/20 17:01 11/22/20 17:01 11/22/20 17:01 HEART Score - HEART Score Troponin: Troponin T 0.125 ng/mL (0.00-0.029) H* D 10/12/20 04:00 Results - Labs CBC & Chem 7: 11/22/20 04:55 11/22/20 04:55 Labs: Laboratory Last Values WBC 7.0 K/mm3 (4.5-11.0) 11/22/20 04:55 RBC 2.96 M/mm3 (3.65-5.03) L 11/22/20 04:55 Hgb 8.7 gm/dl (11.8-15.2) L 11/22/20 04:55 Hct 27.0 % (35.5-45.6) L 11/22/20 04:55 MCV 91 fl (84-94) 11/22/20 04:55 MCH 29 pg (28-32) 11/22/20 04:55 MCHC 32 % (32-34) 11/22/20 04:55 RDW 15.5 % (13.2-15.2) H 11/22/20 04:55 Plt Count 219 K/mm3 (140-440) 11/22/20 04:55 Lymph % (Auto) 19.1 % (13.4-35.0) 11/22/20 04:55 [place] % (Auto) 11.5 % (0.0-7.3) H 11/22/20 04:55 Eos % (Auto) 5.3 % (0.0-4.3) H 11/22/20 04:55 Baso % (Auto) 1.2 % (0.0-1.8) 11/22/20 04:55 Lymph # (Auto) 1.3 K/mm3 (1.2-5.4) 11/22/20 04:55 [place] # (Auto) 0.8 K/mm3 (0.0-0.8) 11/22/20 04:55 Eos # (Auto) 0.4 K/mm3 (0.0-0.4) 11/22/20 04:55 Baso # (Auto) 0.1 K/mm3 (0.0-0.1) 11/22/20 04:55 Add Manual Diff Complete 10/10/20 18:18 Total Counted 100 10/10/20 18:18 Seg Neutrophils % 62.9 % (40.0-70.0) 11/22/20 04:55 Seg Neuts % (Manual) 60.0 % (40.0-70.0) 10/10/20 18:18 Band Neutrophils % 27.0 % 10/10/20 18:18 Lymphocytes % (Manual) 4.0 % (13.4-35.0) L 10/10/20 18:18 Monocytes % (Manual) 9.0 % (0.0-7.3) H 10/10/20 18:18 Eosinophils % (Manual) 4.0 % (0.0-4.3) 10/10/20 10:48 Metamyelocytes % 1.0 % 10/10/20 10:48 Nucleated RBC % Not Reportable 10/10/20 18:18 Seg Neutrophils # 4.4 K/mm3 (1.8-7.7) 11/22/20 04:55 Seg Neutrophils # Man 13.8 K/mm3 (1.8-7.7) H 10/10/20 18:18 Band Neutrophils # 6.2 K/mm3 10/10/20 18:18 Lymphocytes # (Manual) 0.9 K/mm3 (1.2-5.4) L 10/10/20 18:18 Abs React Lymphs (Man) 0.0 K/mm3 10/10/20 18:18 Monocytes # (Manual) 2.1 K/mm3 (0.0-0.8) H 10/10/20 18:18 Eosinophils # (Manual) 0.0 K/mm3 (0.0-0.4) 10/10/20 18:18 Basophils # (Manual) 0.0 K/mm3 (0.0-0.1) 10/10/20 18:18 Metamyelocytes # 0.0 K/mm3 10/10/20 18:18 Myelocytes # 0.0 K/mm3 10/10/20 18:18 Promyelocytes # 0.0 K/mm3 10/10/20 18:18 Blast Cells # 0.0 K/mm3 10/10/20 18:18 WBC Morphology Not Reportable 10/10/20 18:18 Hypersegmented Neuts Not Reportable 10/10/20 18:18 Hyposegmented Neuts Not Reportable 10/10/20 18:18 Hypogranular Neuts Not Reportable 10/10/20 18:18 Smudge Cells Not Reportable 10/10/20 18:18 Toxic Granulation Not Reportable 10/10/20 18:18 Toxic Vacuolation Not Reportable 10/10/20 18:18 Dohle Bodies Not Reportable 10/10/20 18:18 Pelger-Huet Anomaly Not Reportable 10/10/20 18:18 Dionicio Rods Not Reportable 10/10/20 18:18 Platelet Estimate Consistent w auto 10/10/20 18:18 Clumped Platelets Not Reportable 10/10/20 18:18 Plt Clumps, EDTA Not Reportable 10/10/20 18:18 Large Platelets Rare 10/10/20 18:18 Giant Platelets Rare 10/10/20 18:18 Platelet Satelliting Not Reportable 10/10/20 18:18 Plt Morphology Comment Not Reportable 10/10/20 18:18 RBC Morphology Not Reportable 10/10/20 18:18 Dimorphic RBCs Not Reportable 10/10/20 18:18 Polychromasia Not Reportable 10/10/20 18:18 Hypochromasia Not Reportable 10/10/20 18:18 Poikilocytosis Not Reportable 10/10/20 18:18 Anisocytosis Not Reportable 10/10/20 18:18 Microcytosis Not Reportable 10/10/20 18:18 Macrocytosis Not Reportable 10/10/20 18:18 Spherocytes Not Reportable 10/10/20 18:18 Pappenheimer Bodies Not Reportable 10/10/20 18:18 Sickle Cells Not Reportable 10/10/20 18:18 Target Cells Not Reportable 10/10/20 18:18 Tear Drop Cells Not Reportable 10/10/20 18:18 Ovalocytes Not Reportable 10/10/20 18:18 Helmet Cells Not Reportable 10/10/20 18:18 [place] Bodies Not Reportable 10/10/20 18:18 Acton Rings Not Reportable 10/10/20 18:18 Adelfo Cells Not Reportable 10/10/20 18:18 Bite Cells Not Reportable 10/10/20 18:18 Crenated Cell Not Reportable 10/10/20 18:18 Elliptocytes Not Reportable 10/10/20 18:18 Acanthocytes (Spur) Not Reportable 10/10/20 18:18 Rouleaux Not Reportable 10/10/20 18:18 Hemoglobin C Crystals Not Reportable 10/10/20 18:18 Schistocytes Not Reportable 10/10/20 18:18 Malaria parasites Not Reportable 10/10/20 18:18 Mauricio Bodies Not Reportable 10/10/20 18:18 Hem Pathologist Commnt No 10/10/20 18:18 PT 13.5 Sec. (12.2-14.9) 10/28/20 07:00 INR 1.05 (0.87-1.13) 10/28/20 07:00 APTT 26.9 Sec. (24.2-36.6) 10/10/20 18:18 D-Dimer 679.5 ng/mlDDU (0-234) H 10/10/20 10:48 Heparin Anti-Xa Level 0.22 U.I./ml (0.3-0.7) L 10/11/20 08:35 ABG pH 7.374 (7.320-7.450) 11/13/20 16:43 POC ABG pCO2 68.4 mmHg (32.0-48.0) H 11/13/20 16:43 ABG pCO2 55.5 mm Hg 10/16/20 05:10 POC ABG pO2 101.9 mmHg (83-108) 11/13/20 16:43 ABG pO2 104.5 mm Hg (80.0-90.0) H 10/16/20 05:10 POC ABG HCO3 39.0 11/13/20 16:43 ABG HCO3 35.1 mmol/L (20.0-26.0) H 10/16/20 05:10 ABG O2 Saturation 97.8 (0-100) 11/13/20 16:43 ABG O2 Content 10.8 (0.0-44) 10/16/20 05:10 POC ABG Base Excess 11.7 11/13/20 16:43 ABG Base Excess 9.5 mmol/L (-2.0-3.0) H 10/16/20 05:10 ABG Hemoglobin 10.0 (12.0-17.5) L 11/13/20 16:43 ABG Oxyhemoglobin 96.7 (94-98) 11/13/20 16:43 ABG Carboxyhemoglobin 1.9 % (0.0-5.0) 10/16/20 05:10 ABG Methemoglobin 0.3 (0.0-1.5) 11/13/20 16:43 ABG Sodium 140.6 mmol/L (136.0-145.0) 11/13/20 16:43 ABG Potassium 4.2 mmol/L (3.40-4.50) 11/13/20 16:43 ABG Chloride 98.0 mmol/L (98-107) 11/13/20 16:43 ABG Glucose 133 mg/dL (65-95) H 11/13/20 16:43 VBG pH 6.870 (7.320-7.420) L* 10/10/20 10:48 Oxyhemoglobin 95.3 % (95.0-99.0) 10/16/20 05:10 Carboxyhemoglobin 0.8 (0.5-1.5) 11/13/20 16:43 FiO2 35 % 10/16/20 05:10 FiO2 % 35.0 11/13/20 16:43 Sodium 142 mmol/L (137-145) 11/22/20 04:55 Potassium 4.4 mmol/L (3.6-5.0) 11/22/20 04:55 Chloride 98.7 mmol/L (98-107) 11/22/20 04:55 Carbon Dioxide 40 mmol/L (22-30) H 11/22/20 04:55 Anion Gap 8 mmol/L 11/22/20 04:55 BUN 26 mg/dL (9-20) H 11/22/20 04:55 Creatinine 1.0 mg/dL (0.8-1.3) 11/22/20 04:55 Estimated GFR > 60 ml/min 11/22/20 04:55 BUN/Creatinine Ratio 26 % 11/22/20 04:55 Glucose 137 mg/dL (75-100) H 11/22/20 04:55 POC Glucose 141 mg/dL (70-105) H 11/22/20 11:32 Hemoglobin A1c 6.0 % (4-6) 10/11/20 02:00 Lactic Acid 1.10 mmol/L (0.7-2.0) 10/13/20 04:52 Calcium 8.7 mg/dL (8.4-10.2) 11/22/20 04:55 Phosphorus 5.20 mg/dL (2.5-4.5) H D 10/17/20 03:32 Magnesium 2.30 mg/dL (1.7-2.3) 10/17/20 03:32 Ferritin 81.4 ng/mL (30.0-300.0) 10/10/20 10:48 Total Bilirubin 0.20 mg/dL (0.1-1.2) 11/22/20 04:55 AST 13 units/L (5-40) 11/22/20 04:55 ALT 11 units/L (7-56) 11/22/20 04:55 Alkaline Phosphatase 88 units/L (35-129) 11/22/20 04:55 Ammonia 214.0 umol/L (25-60) H 10/10/20 10:46 Lactate Dehydrogenase 386 units/L (91-180) H 10/10/20 10:48 Total Creatine Kinase 1192 units/L (55-170) H 10/10/20 18:18 CK-MB (CK-2) 21.7 ng/mL (0.0-4.0) H 10/10/20 18:18 CK-MB (CK-2) Rel Index 1.8 (0-4) 10/10/20 18:18 Troponin T 0.125 ng/mL (0.00-0.029) H* D 10/12/20 04:00 C-Reactive Protein 4.40 mg/dL (0.00-1.30) H 11/18/20 13:44 NT-Pro-B Natriuret Pep 1187 pg/mL (0-900) H 10/10/20 10:46 Total Protein 6.7 g/dL (6.3-8.2) 11/22/20 04:55 Albumin 3.0 g/dL (3.9-5) L 11/22/20 04:55 Albumin/Globulin Ratio 0.8 % 11/22/20 04:55 Triglycerides 278 mg/dL (2-149) H 10/13/20 04:52 Cholesterol 138 mg/dL (50-199) 10/10/20 18:18 LDL Cholesterol Direct 76 mg/dL (50-130) 10/10/20 18:18 HDL Cholesterol 49 mg/dL (40-59) 10/10/20 18:18 Cholesterol/HDL Ratio 2.81 % 10/10/20 18:18 Procalcitonin 0.22 ng/mL (<0.15) 11/18/20 13:44 TSH 6.260 mlU/mL (0.270-4.200) H 10/10/20 10:46 Arterial Blood Glucose 133 mg/dL (65-95) H 11/13/20 16:43 Arterial Blood Ionized Calcium 4.7 mg/dL (4.6-5.3) 11/13/20 16:43 Urine Color Angelica (Yellow) 10/18/20 Unknown Urine Turbidity Cloudy (Clear) 10/18/20 Unknown Urine pH 5.0 (5.0-7.0) 10/18/20 Unknown Ur Specific [place] 1.017 (1.003-1.030) 10/18/20 Unknown Urine Protein 100 mg/dl mg/dL (Negative) 10/18/20 Unknown Urine Glucose (UA) Neg mg/dL (Negative) 10/18/20 Unknown Urine Ketones Neg mg/dL (Negative) 10/18/20 Unknown Urine Blood Lg (Negative) 10/18/20 Unknown Urine Nitrite Neg (Negative) 10/18/20 Unknown Urine Bilirubin Neg (Negative) 10/18/20 Unknown Urine Urobilinogen 4.0 mg/dL (<2.0) 10/18/20 Unknown Ur Leukocyte Esterase Neg (Negative) 10/18/20 Unknown Urine WBC (Auto) 115.0 /HPF (0.0-6.0) H 10/18/20 Unknown Urine RBC (Auto) 98.0 /HPF (0.0-6.0) 10/18/20 Unknown U Epithel Cells (Auto) 2.0 /HPF (0-13.0) 10/18/20 Unknown Urine WBC Clumps 3+ /HPF 10/18/20 Unknown Urine Mucus Few /HPF 10/11/20 13:30 Urine Eosinophils None seen (None Seen) 10/11/20 13:30 Urine Creatinine 93.7 mg/dL (0.1-20.0) H 10/19/20 13:14 Urine Sodium 25 mmol/L 10/19/20 13:14 Urine Urea Nitrogen 845 10/19/20 13:14 Nasal Screen MRSA (PCR) Positive (Negative) 10/20/20 13:30 Random Vancomycin 5.8 ug/mL (0-40.0) 10/21/20 06:30 Urine Opiates Screen Negative 10/10/20 10:50 Urine Methadone Screen Negative 10/10/20 10:50 Ur Barbiturates Screen Negative 10/10/20 10:50 Ur Phencyclidine Scrn Negative 10/10/20 10:50 Ur Amphetamines Screen Negative 10/10/20 10:50 U Benzodiazepines Scrn Negative 10/10/20 10:50 Urine Cocaine Screen Negative 10/10/20 10:50 U Marijuana (THC) Screen Positive 10/10/20 10:50 Drugs of Abuse Note Disclamer 10/10/20 10:50 Plasma/Serum Alcohol < 0.01 % (0-0.07) 10/10/20 10:48 Coronavirus (PCR) Negative (Negative) 10/11/20 Unknown Blood Type AB POSITIVE 10/10/20 10:48 Antibody Screen Negative 10/10/20 10:48 Tuttle/IV: Voiding Method Indwelling Catheter Nutrition/Malnutrition Assess - Dietary Evaluation Nutrition/Malnutrition Findings: Nutrition Notes Start: 10/11/20 08:38 Freq: Status: Discharge Protocol: Document 11/21/20 13:41 OMARI (Rec: 11/21/20 13:50 NHALL [email or web address]) Nutrition Notes Initial or Follow up Reassessment Current Diagnosis Hypertension,Respiratory Failure Other Pertinent Diagnosis s/p cardiac arrest, pneu, NSTEMI, seizure d/o Current Diet TF - Promote at 80ml/hr Labs/Tests CO2 - 40 BUN 27 Pertinent Medications Lasix Height 6 ft Weight 125 kg [place] Body Weight (kg) 80.90 BMI 37.3 Weight change and time frame Wt change noted Weight Status Obese Subjective/Other Information Spoke with RN via phone at 13: 28. Pt tolerating TF at goal rate. Per MD, pt with poor prognosis. Percent of energy/protein needs met: 96% energy 74% pro Burn Absent Trauma Absent #3 Nutrition Diagnosis Increased nutrient needs ( specify in comment below) Diagnosis Progress(for reassessment Continues documentation) #1 Nutrition Diagnosis Inadequate oral intake Diagnosis Progress(for reassessment Continues documentation) Is patient on ventilator? No Is Patient Ambulatory and/or Out of Bed No REE-([facility]-confined to bed) 2563.188 Kcal/Kg value to use for calculation 16 Approximate Energy Requirements Using 2000 kcal/Kg Calculation Used for Recommendations Kcal/kg Additional Notes Pro needs >2g/kg IBW: >162g/ day Fluid needs 1ml/kcal Nutrition Intervention Nutrition Support: Continue Promote at 80 ml/hr flush of 50 ml q4h. Kcal 1,920 Protein (gm) 120 Fluid (mL) 1,611 Goal #1 TF tolerance Goal #2 TF to meet nutrient needs as best possible Follow-Up By: 11/28/20 Additional Comments F/U: stable TF, wt
--- NOTE | 2020-10-24 14:10 | Progress Note ---
Assessment and Plan he pt is a 55-year-old -[place] male with a past medical history of hypertension, asthma, obesity. He is intubated and sedated on evaluation and thus HPI is obtained per the chart. Pt presented to ED after Covid vaccine and passed out with seizure like activity in the car at the emergency room bay. Patient was found to be unresponsive and with no pulse. ACLS protocol was initiated from the car to the emergency room with continued ACLS protocol. Patient was intubated and after couple of epi ROSC obtained. Central line was p laced and patient was also started on pressors. Patient did not have any fever shortness of breath or cough or any symptoms prior to the COVID-19 vaccination. Patient coded twice in the emergency room. One before the imaging studies and once after the imaging studies. tte reviewed - EF 55-60%, mod LVH, mild diastolic dysfunction. Pt is intubated, unresponsive. No sedation. Tele reviewed: SR 68. Pt converted from Afib this am. Continue volume optimization and electrolyte correction per Nephro. Creatinine is trending downward. Continue present cardiac management. Agree with Clonidine patch and Hydralazine 50mg PO TID. Continue Metoprolol 100mg TID. Continue supportive measures. Overall guarded prognosis. Will follow. The patient has been seen in conjunction with Dr. Liz Steen who agrees with the assessment and plan of care. - Patient Problems (1) Cardiopulmonary arrest with successful resuscitation Current Visit: Yes Status: Acute (2) Acute respiratory failure Current Visit: Yes Status: Acute Qualifiers: Respiratory failure complication: hypoxia and hypercapnia Qualified Code(s): J96.01 - Acute respiratory failure with hypoxia; J96.02 - Acute respiratory failure with hypercapnia (3) Bilateral pneumonia Current Visit: Yes Status: Acute (4) Sepsis with hypotension Current Visit: Yes Status: Acute (5) NSTEMI (non-ST elevated myocardial infarction) Current Visit: Yes Status: Acute (6) Acute heart failure Current Visit: Yes Status: Suspected (7) MOE (acute kidney injury) Current Visit: Yes Status: Acute (8) GI bleed Current Visit: Yes Status: Suspected Subjective Date of service: 10/24/20 Principal diagnosis: Cardiac arrest; Septic Shock; Ac. hypoxemic & hypercapnic resp failure; MOE Interval history: Pt is intubated and sedated. Tele reviewed: SR 68. Pt converted from Afib this am. Objective Last Vital Signs Temp 97.9 F 10/24/20 12:00 Pulse 66 10/24/20 11:27 Resp 16 10/24/20 10:00 BP 157/75 10/24/20 11:27 Pulse Ox 99 10/24/20 11:27 - Physical Examination General: Other (intubated) HEENT: Positive: Normocephaly Neck: Positive: neck supple, trachea midline Neuro: Positive: Other (intubated) Abdomen: Positive: Soft, Active Bowel Sounds Skin: Negative: Rash Extremities: Present: lower extr. pulses. Absent: edema - Labs and Meds Comprehensive Metabolic Panel 10/24/20 Range/Units 05:33 Sodium 147 H (137-145) mmol/L Potassium 3.9 (3.6-5.0) mmol/L Chloride 107.0 (98-107) mmol/L Carbon Dioxide 32 H (22-30) mmol/L BUN 76 H (9-20) mg/dL Creatinine 1.7 H (0.8-1.3) mg/dL Glucose 172 H (75-100) mg/dL Calcium 9.8 (8.4-10.2) mg/dL - Imaging and Cardiology EKG: report reviewed, image reviewed Echo: report reviewed (10/10/2020 - mod LVH, EF 55-60%, mild diastolic dysfunction) - EKG Sinus rhythms and dysrhythmias: sinus rhythm Repolarization changes or abnormalities: ST suggestive of injury, Q-T interval prolongation - Allied health notes Allied health notes reviewed: RT
--- NOTE | 2020-10-24 14:21 | Magnetic Resonance Report ---
MRI BRAIN WITHOUT AND WITH CONTRAST INDICATION / CLINICAL INFORMATION: Encephalopathy, possible anoxic brain injury.. TECHNIQUE: Multiplanar, multisequence MR images of the brain were obtained. COMPARISON: None available. FINDINGS: BRAIN / INTRACRANIAL CONTENTS: There is diffuse restricted diffusion in the cerebral cortex as well a s subtle increased T2/FLAIR signal. There is no hydrocephalus, hemorrhage, or adverse mass effect. Th ere is no abnormal intercranial enhancement. There is no evidence of mass lesion. CRANIOCERVICAL JUNCTION: No significant abnormality. VASCULAR FLOW-VOIDS: No significant abnormality. ORBITS: No significant abnormality of visualized orbits. SINUSES / MASTOIDS: There is diffuse mucosal thickening in the paranasal sinuses, likely due to the p atient's intubated state. ADDITIONAL FINDINGS: None. IMPRESSION: 1. Diffuse restricted diffusion and increased T2 signal in the cerebral cortex. These findings can be seen in the setting of anoxic brain injury and/or status epilepticus. Signer Name: Kashif Wagner MD Signed: 10/24/2020 2:17 PM Workstation Name: [id number]
--- NOTE | 2020-10-24 17:18 | Progress Note ---
Assessment and Plan SARS CoV2 PCR: negative. 10/10/2020 blood culture: No growth 10/10/2020 ET aspirate culture: Usual respiratory antonio 10/11/2020 urine culture: no growth 10/18/2020 blood culture: No growth today 10/18/2020 tracheal aspirate date: MRSA 10/20/2020 right nare MRSA A/P: 55-year-old male with hypertension, asthma, obesity came into the emergency room after receiving the Covid vaccine and passing out in the car at the emergency room bay. Patient was found to be unresponsive with no pulse, ACLS was initiated: #Sepsis, likely secondary to pneumonia. COVID negative. No fever for 48 hours, leukocytosis is downtrending, noted right nostril copious purulunce on 10/18-10/20 now resolved. ?sinusitis +/- UTI +/-MRSA pneumonia. #Right-sided pneumonia: Possible aspiration during ACLS. Procalcitonin low. Chest x-ray with persistent lung opacities. Tracheal aspirate now with MRSA. Patient with persistent fever. Completed 9 days of cefepime. #Presumed right sided sinusitis: culture +MRSA, left NGT removed #Acute hypoxic respiratory failure: On mechanical ventilation. #MOE: Renally dose antibiotics. Worsening. Renal on board. #Elevated LFTs: Likely from sepsis #Urine tox screen positive for THC #Acute encephalopathy: neurology on board, evaluation in process. #UTI: Urine culture no growth. Repeat UA with worsening pyuria. Completed 9 days of cefepime. #Encephalopathy: Neurology on board. Recs: -Continue linezolid 600 g IV twice a day total 10 days D5 of 10 -Completed 9 days of cefepime on 10/20/2020 -monitor fever/leukocytosis, improving -hopefully will be extubated soon Kelin Baumann MD [facility] O: [phone] F: [phone] Subjective Date of service: 10/24/20 Principal diagnosis: Cardiac arrest; Septic Shock; Ac. hypoxemic & hypercapnic resp failure; MOE Interval history: Check afebrile, white count 13.3. No other acute changes. Objective - Exam Narrative Exam: General appearance: Open eyes, intubated Eyes: anicteric sclerae, moist conjunctivae; no lid-lag; PERRLA HENT: Normocephalic, Atraumatic; normal external ears, oropharynx endotracheal tube in place Neck: supple, tracheal midline, no JVD Lungs: Bilateral rhonchi CV: RRR no murmur Abdomen: Soft, nontender Extremities: no edema, no cyanosis Skin: No rash. Psych: No agitated Neuro: Alert does not follow commands - Constitutional Vitals: Vital Signs Temp Pulse Resp BP Pulse Ox 97.9 F 69 14 140/68 98 10/24/20 12:00 10/24/20 16:00 10/24/20 16:00 10/24/20 16:00 10/24/20 16:00 Temperature -Last 24 Hours Temperature 97.9 F Temperature 98.2 F Temperature 97.7 F Temperature 97.7 F Temperature 98.3 F Temperature 98.6 F Temperature 99.1 F Temperature 135 F - Labs CBC & Chem 7: 10/21/20 06:30 10/24/20 05:33 Labs: Abnormal lab results 10/23/20 10/24/20 10/24/20 Range/Units 17:55 05:33 05:41 Sodium 147 H (137-145) mmol/L Carbon Dioxide 32 H (22-30) mmol/L BUN 76 H (9-20) mg/dL Creatinine 1.7 H (0.8-1.3) mg/dL Glucose 172 H (75-100) mg/dL POC Glucose 135 H 156 H (70-105) mg/dL 10/24/20 Range/Units 12:09 Sodium (137-145) mmol/L Carbon Dioxide (22-30) mmol/L BUN (9-20) mg/dL Creatinine (0.8-1.3) mg/dL Glucose (75-100) mg/dL POC Glucose 154 H (70-105) mg/dL
[2020-10-25] MEDS: GLYCOPYRROLATE 1 MG TAB PO SCH ×4 (02:07→19:44)
[2020-10-25] MEDS: hydrALAZINE 25 MG TAB PO SCH ×3 (05:17→21:33)
[2020-10-25] MEDS: levETIRAcetam 500 MG in DEXTROSE 5% IN WATER 100 ML IV SCH ×2 (05:17→17:54)
[2020-10-25] MEDS: METOPROLOL TARTRATE 50 MG TAB PO SCH ×3 (08:36→19:44)
--- NOTE | 2020-10-25 08:42 | Progress Note ---
Assessment and Plan 1. Acute kidney injury: Vasomotor MOE in the setting of Cardiac arrest and shock. Renal US negative for hydro. Monitor renal function. BUN and Creatinine level improving. Multiple bladder scan showed no retention. Avoid nephrotoxic agents. Meds dosage based on GFR. Monitor for [employer] needs. 2. FEN: Volume overload, improved, monitor. Hypernatremia, monitor. On Tube feeding and water flushes. Monitor lytes and volume status. 3. Acute hypoxic respiratory failure, POA: 2/2 PNA and CHF. COVID test negative. Intubated on vent. 4. Sepsis, POA: 2/2 PNA. Abx. 5. NSTEMI type II: Post cardiac arrest EKG showed no acute ischemic changes. Followed by Cards. 6. Acute CHF: Echo showed Normal EF and mild DD. 7. S/p Cardiac arrest. 8. A.fib / A.flutter: Metoprolol. 9. Anoxic encephalopathy: Seen by Neuro. 10. GI bleed: Seen by GI. 11. Elevated Transaminases: Improved. 12. HTN: Monitor. Adjust meds as needed. Subjective: Patient was seen and examined at the bedside. Objective: General appearance: well-developed, appears stated age, intubated, on vent HEENT: ATNC, pupils equal Neck: trachea midline Respiratory: ctab Heart: regular, S1S2, no murmur Gastrointestinal: soft, normoactive bowel sounds, not tender Integumentary: no rash, warm and dry Ext: trace extremity edema Neurologic: not responding Musculoskeletal: no obvious deformity Subjective Date of service: 10/25/20 Principal diagnosis: Cardiac arrest; Septic Shock; Ac. hypoxemic & hypercapnic resp failure; MOE Objective - Vital Signs Vital signs: Vital Signs - 12hr 10/24/20 10/24/20 10/24/20 20:51 21:00 21:16 Temperature Pulse Rate 71 76 71 Pulse Rate [ From Monitor] Respiratory 15 Rate Blood Pressure 160/94 135/87 135/87 O2 Sat by Pulse 100 100 Oximetry 10/24/20 10/24/20 10/24/20 21:30 22:00 22:30 Temperature Pulse Rate 82 81 78 Pulse Rate [ From Monitor] Respiratory 16 19 18 Rate Blood Pressure 156/103 153/88 151/80 O2 Sat by Pulse 100 100 98 Oximetry 10/24/20 10/24/20 10/24/20 23:00 23:30 23:57 Temperature 99 F Pulse Rate 79 77 Pulse Rate [ From Monitor] Respiratory 17 16 Rate Blood Pressure 151/75 145/72 O2 Sat by Pulse 98 98 Oximetry 10/25/20 10/25/20 10/25/20 00:00 00:22 00:30 Temperature Pulse Rate 76 77 78 Pulse Rate [ 76 From Monitor] Respiratory 16 16 Rate Blood Pressure 144/74 144/74 144/74 O2 Sat by Pulse 99 98 98 Oximetry 10/25/20 10/25/20 10/25/20 01:00 01:30 02:00 Temperature Pulse Rate 75 91 H 77 Pulse Rate [ From Monitor] Respiratory 16 19 15 Rate Blood Pressure 157/79 200/107 124/69 O2 Sat by Pulse 99 100 99 Oximetry 10/25/20 10/25/20 10/25/20 02:30 03:00 03:30 Temperature Pulse Rate 79 85 88 Pulse Rate [ From Monitor] Respiratory 15 18 18 Rate Blood Pressure 122/66 122/66 155/96 O2 Sat by Pulse 99 98 99 Oximetry 10/25/20 10/25/20 10/25/20 03:38 03:52 04:00 Temperature 99.4 F Pulse Rate 86 86 Pulse Rate [ 88 From Monitor] Respiratory 18 Rate Blood Pressure 155/96 141/96 O2 Sat by Pulse 99 99 Oximetry 10/25/20 10/25/20 10/25/20 04:30 05:00 05:17 Temperature Pulse Rate 86 85 86 Pulse Rate [ From Monitor] Respiratory 17 17 Rate Blood Pressure 166/86 150/78 150/78 O2 Sat by Pulse 99 99 Oximetry 10/25/20 10/25/20 10/25/20 05:30 06:00 08:00 Temperature 98.7 F Pulse Rate 85 89 Pulse Rate [ From Monitor] Respiratory 18 26 H Rate Blood Pressure 160/88 144/93 O2 Sat by Pulse 99 99 Oximetry 10/25/20 10/25/20 08:25 08:36 Temperature Pulse Rate 99 H 90 Pulse Rate [ From Monitor] Respiratory 25 H Rate Blood Pressure 154/91 204/113 O2 Sat by Pulse 98 Oximetry - Lab 10/25/20 08:55 10/25/20 08:55 Most recent lab results ABG pH 7.334 (7.320-7.450) 10/23/20 05:11 ABG pCO2 55.5 mm Hg 10/16/20 05:10 ABG pO2 104.5 mm Hg (80.0-90.0) H 10/16/20 05:10 ABG HCO3 35.1 mmol/L (20.0-26.0) H 10/16/20 05:10 ABG O2 Saturation 96.0 (0-100) 10/23/20 05:11 Calcium 9.8 mg/dL (8.4-10.2) 10/24/20 05:33 Phosphorus 5.20 mg/dL (2.5-4.5) H D 10/17/20 03:32 Magnesium 2.30 mg/dL (1.7-2.3) 10/17/20 03:32 Urine Creatinine 93.7 mg/dL (0.1-20.0) H 10/19/20 13:14 Urine Sodium 25 mmol/L 10/19/20 13:14 Medications & Allergies - Medications Allergies/Adverse Reactions: Allergies No Known Allergies Allergy (Unverified 07/06/13 15:19) Home Medications: Home Medications Medication Instructions Recorded Confirmed Last Taken Type Colchicine [Colcrys] QDAY 10/21/20 Unknown History Eplerenone [Inspra] 50 mg PO 10/21/20 Unknown History HYDROcodone/APAP 5-325 [[place] 1 each PO Q8HR PRN 10/21/20 10/21/20 Unknown History 5/325] Leflunomide [Arava] 20 mg PO QDAY 10/21/20 10/21/20 3 Weeks Ago History ~09/30/20 20 mg Rosuvastatin (Nf) [Crestor] 20 mg PO QHS 10/21/20 10/21/20 3 Weeks Ago History ~09/30/20 20 mg Torsemide [Demadex] 20 mg PO 10/21/20 Unknown History allopurinoL [Zyloprim] QDAY 10/21/20 Unknown History amLODIPine 5 mg PO BID 10/21/20 10/21/20 3 Weeks Ago History ~09/30/20 5 mg carvediloL [Coreg] 25 mg PO QDAY 10/21/20 10/21/20 3 Weeks Ago History ~09/30/20 25 mg metFORMIN [Glucophage] 500 mg PO QDAY 10/21/20 10/21/20 Unknown History Active Medications: Generic Name Dose Route Start Last Admin Trade Name Freq PRN Reason Stop Dose Admin Acetaminophen 650 mg 10/10/20 21:51 10/20/20 09:11 Acetaminophen 325 Mg Tab PO 650 mg Q4H PRN Administration Pain MILD(1-3)/Fever >100.5/[place] Acetaminophen 650 mg 10/11/20 11:24 10/17/20 17:16 Acetaminophen 650 Mg Rect Supp [place] 650 mg Q6H PRN Administration Fever >101 Albuterol 2.5 mg 10/11/20 13:12 Albuterol 2.5 Mg/3 Ml Nebu IH Q6HRT PRN Shortness Of Breath Lipase/Protease/Amylase 1 each 10/10/20 22:18 Lipase 10,500/Protease 25,000/Amylase 43,750 (Units) Dr Santana FEEDTUBE PRN PRN For Clogged Feeding Tube Clonidine HCl 0.3 mg 10/14/20 15:00 10/21/20 14:05 Clonidine Tts 0.3 Mg/24 Hr Patch TD 0.3 mg Fr PEPITO Administration Docusate Sodium 100 mg 10/16/20 22:00 10/24/20 21:16 Docusate Sodium 100 Mg/10 Ml Oral Liqd PO 100 mg BID PEPITO Administration Fentanyl 50 mcg 10/16/20 14:10 10/23/20 10:53 Fentanyl 100 Mcg/2 Ml Inj IV 50 mcg Q10MIN PRN Administration ANALGESIA Fluticasone Propionate 50 mcg 10/18/20 14:00 10/24/20 21:33 Fluticasone Propionate Nasal [place] 16 Gm NS 50 mcg BID PEPITO Administration Glycopyrrolate 2 mg 10/19/20 14:00 10/25/20 02:07 Glycopyrrolate 1 Mg Tab PO 2 mg Q6H PEPITO Administration Heparin Sodium (Porcine) 5,000 unit 10/11/20 22:00 10/24/20 21:17 Heparin 5,000 Unit/1 Ml Vial SUB-Q 5,000 unit Q12HR PEPITO Administration Hydralazine HCl 5 mg 10/15/20 20:25 10/24/20 08:20 Hydralazine 20 Mg/1 Ml Inj IV 5 mg Q6H PRN Administration Hypertension Hydralazine HCl 100 mg 10/24/20 09:30 10/25/20 05:17 Hydralazine 25 Mg Tab PO 100 mg Q8HR PEPITO Administration Hydrophilic Ointment 1 applic 10/10/20 10:34 Lip Therapy Vaseline TP Q2HR PRN Dry Lips Levetiracetam 500 mg/ Dextrose 105 mls @ 400 mls/hr 10/13/20 18:00 10/25/20 05:17 IV 400 mls/hr Q12H PEPITO Administration Fentanyl Citrate 2,000 mcg in 100 mls @ 6.175 mls/hr 10/16/20 15:00 10/24/20 17:48 Fentanyl Drip Premix IV 0.5 mcg/kg/hr TITR PEPITO 3.088 mls/hr Titration Protocol 1 MCG/KG/HR Linezolid 600 mg in 300 mls @ 300 mls/hr 10/20/20 12:00 10/24/20 21:16 Zyvox 600mg/300ml IV 10/29/20 22:59 300 mls/hr Q12HR PEPITO Administration Protocol Lansoprazole 30 mg 10/24/20 10:00 10/24/20 21:16 Lansoprazole 30 Mg Solutab FEEDTUBE 30 mg BID PEPITO Administration Metoclopramide HCl 10 mg 10/10/20 21:51 Metoclopramide 10 Mg/2 Ml Inj IV Q6H PRN Nausea And Vomiting Metoprolol Tartrate 100 mg 10/21/20 14:00 10/25/20 08:36 Metoprolol Tartrate 50 Mg Tab PO 100 mg TID PEPITO Administration Multi-Ingred Cream/Lotion/Oil/Oint 1 applic 10/10/20 10:34 Mineral Oil/Petrolatum, White Ophth Oint 3.5 Gm OU Q4HR PRN Dry Eye(s) Ondansetron HCl 4 mg 10/10/20 21:51 Ondansetron 4 Mg/2 Ml Inj IV Q3H PRN Nausea And Vomiting Polyethylene Glycol 17 gm 10/17/20 10:00 10/24/20 09:49 Polyethylene Glycol 3350 17 Gm Powder PO 17 gm QDAY PEPITO Administration Scopolamine 1 each 10/17/20 10:00 10/23/20 09:35 Scopolamine Transdermal Patch 72 Hr TD 1 each Q3D PEPITO Administration Simple Syrup 15 ml 10/10/20 22:18 Simple Syrup 15 Ml FEEDTUBE PRN PRN Hypoglycemia Simple Syrup 30 ml 10/10/20 22:18 Simple Syrup 15 Ml FEEDTUBE PRN PRN Hypoglycemia Sodium Bicarbonate 325 mg 10/10/20 22:18 Sodium Bicarbonate 325 Mg Tab FEEDTUBE PRN PRN For Clogged Feeding Tube Sodium Chloride 10 ml 10/10/20 22:00 10/24/20 21:17 Sodium Chloride 0.9% 10 Ml Flush Syringe IV 10 ml BID PEPITO Administration Sodium Chloride 10 ml 10/10/20 21:51 10/21/20 09:56 Sodium Chloride 0.9% 10 Ml Flush Syringe IV 10 ml PRN PRN Administration LINE FLUSH
[2020-10-25] MEDS: LINEZOLID 600 MG/300 ML BAG IV SCH ×2 (09:01→21:32)
[2020-10-25] MEDS: DOCUSATE SODIUM 100 MG/10 ML ORAL LIQD PO SCH ×2 (09:01→21:32)
[2020-10-25] MEDS: POLYETHYLENE GLYCOL 3350 17 GM POWDER PO SCH (09:01)
[2020-10-25] MEDS: HEPARIN 5,000 UNIT/1 ML VIAL SUB-Q SCH ×2 (09:02→21:32)
[2020-10-25] MEDS: LANSOPRAZOLE 30 MG SOLUTAB FEEDTUBE SCH ×2 (09:02→21:32)
[2020-10-25] MEDS: FLUTICASONE PROPIONATE NASAL SPRAY 16 GM NS SCH ×2 (09:02→21:33)
--- NOTE | 2020-10-25 09:04 | Progress Note ---
Subjective Date of service: 10/25/20 Principal diagnosis: Cardiac arrest; Septic Shock; Ac. hypoxemic & hypercapnic resp failure; MOE Objective - Constitutional Vitals: Vital Signs - 12hr 10/24/20 10/24/20 10/24/20 21:16 21:30 22:00 Temperature Pulse Rate 71 82 81 Pulse Rate [ From Monitor] Respiratory 16 19 Rate Blood Pressure 135/87 156/103 153/88 O2 Sat by Pulse 100 100 Oximetry 10/24/20 10/24/20 10/24/20 22:30 23:00 23:30 Temperature Pulse Rate 78 79 77 Pulse Rate [ From Monitor] Respiratory 18 17 16 Rate Blood Pressure 151/80 151/75 145/72 O2 Sat by Pulse 98 98 98 Oximetry 10/24/20 10/25/20 10/25/20 23:57 00:00 00:22 Temperature 99 F Pulse Rate 76 77 Pulse Rate [ 76 From Monitor] Respiratory 16 Rate Blood Pressure 144/74 144/74 O2 Sat by Pulse 99 98 Oximetry 10/25/20 10/25/20 10/25/20 00:30 01:00 01:30 Temperature Pulse Rate 78 75 91 H Pulse Rate [ From Monitor] Respiratory 16 16 19 Rate Blood Pressure 144/74 157/79 200/107 O2 Sat by Pulse 98 99 100 Oximetry 10/25/20 10/25/20 10/25/20 02:00 02:30 03:00 Temperature Pulse Rate 77 79 85 Pulse Rate [ From Monitor] Respiratory 15 15 18 Rate Blood Pressure 124/69 122/66 122/66 O2 Sat by Pulse 99 99 98 Oximetry 10/25/20 10/25/20 10/25/20 03:30 03:38 03:52 Temperature 99.4 F Pulse Rate 88 86 Pulse Rate [ From Monitor] Respiratory 18 Rate Blood Pressure 155/96 155/96 O2 Sat by Pulse 99 99 Oximetry 10/25/20 10/25/20 10/25/20 04:00 04:30 05:00 Temperature Pulse Rate 86 86 85 Pulse Rate [ 88 From Monitor] Respiratory 18 17 17 Rate Blood Pressure 141/96 166/86 150/78 O2 Sat by Pulse 99 99 99 Oximetry 10/25/20 10/25/20 10/25/20 05:17 05:30 06:00 Temperature Pulse Rate 86 85 89 Pulse Rate [ From Monitor] Respiratory 18 26 H Rate Blood Pressure 150/78 160/88 144/93 O2 Sat by Pulse 99 99 Oximetry 10/25/20 10/25/20 10/25/20 08:00 08:25 08:36 Temperature 98.7 F Pulse Rate 99 H 90 Pulse Rate [ From Monitor] Respiratory 25 H Rate Blood Pressure 154/91 204/113 O2 Sat by Pulse 98 Oximetry - Labs CBC & Chem 7: 10/21/20 06:30 10/24/20 05:33 Labs: Abnormal lab results 10/24/20 10/24/20 10/24/20 Range/Units 05:41 12:09 18:09 POC Glucose 156 H 154 H 132 H (70-105) mg/dL 10/24/20 Range/Units 23:39 POC Glucose 131 H (70-105) mg/dL HEART Score - HEART Score EKG: Non-specific Age: 45-65 Troponin: Troponin T 0.125 ng/mL (0.00-0.029) H* D 10/12/20 04:00 Troponin: 1-3x normal limit - Critical Actions Critical Actions: 4-6 pts:12-16.6% risk of adverse cardiac event. Should be admitted
[2020-10-25 09:54] LABS: Hematocrit 31.6 % (35.5-45.6); Hemoglobin 10.3 gm/dl (11.8-15.2); Mean Corpuscular HGB Conc 33 % (32-34); Mean Corpuscular Volume 88 fl (84-94); Platelet Count 339 K/mm3 (140-440); Red Blood Count 3.57 M/mm3 (3.65-5.03); Red Cell Distribution Width 14.8 % (13.2-15.2)
[2020-10-25 10:26] LABS: Calcium 9.9 mg/dL (8.4-10.2)
--- NOTE | 2020-10-25 13:08 | Progress Note ---
Assessment and Plan Cardiac arrest x3 with ROSC Severe septic and cardiogenic shock Acute respiratory failure with hypoxemia and hypercarbia Acute pulmonary edema MOE (acute kidney injury) Lactic acidosis, severe metabolic acidosis Bilateral pneumonia, aspiration pneumonia Elevated troponins (AMS remains rate limiting factor for safe extubation acutely; i have discussed care plan at length with his Nini today and will place a consult for a tracheostomy & PEG) - reduced set rate to 12/min - repeat ABG in am - get Surgery consult for trach and PEG - continue contact precautions re: MRSA - complete Zyvox dosing - increased peep to 8 - continue care as below otherwise; - flonase nasal spray for sinus congestion / exudation - continue to hold on full anticoagulation re: negative Dopplers and clinical improvement in oxygenation - continue Clonidine 0.3 mg weekly patch - follow G.I. evaluation - de-escalate empiric anti-infective's per ID rec's (on Zyvox) - follow clinically re: fevers / WBC - Monitor hemodynamics closely - continue daily SAT's and SBT assessment as tolerated - wean supplemental oxygen for target O2 sat's > 92% acutely - VAP bundle addressed - continue lung protective strategies - bronchodilators with pulmonary hygiene per RT - wean per pulmonary driven protocols otherwise - Monitor urine output closely - bicarbonate infusion - avoid nephrotoxins, renally dose all medications - continue to avoid benzodiazepine's, reduce the possibility of delirium - continue Scopolamine for secretion control - continue wound care per RN/WCN - prn analgesia per CPOT score - Maintenance of sleep-wake cycle, avoid delirium - continue enteral nutritional support at goal rate as tolerated - G.I. & VTE prophylaxis - PT/OT/ROM exercises - continue mobility protocols for pressure ulcer prophylaxis - Monitor hemodynamics closely - continue other care per attending / other consultants - discharge planning ongoing concurrently .... Re-evaluate in am & prn CONDITION: CRITICAL PROGNOSIS: GUARDED CODE STATUS: FULL CODE The high probability of a clinically significant, sudden or life-threatening deterioration of the [respiratory, cardiovascular & neurologic] system(s) required my full and direct attention, intervention and personal management. The aggregate critical care time was [32] minutes without overlap. Time includes spent on; [x] Data Review and interpretation [x] Patient assessment and monitoring of vital signs [x] Documentation [x] Medication orders and management Subjective Date of service: 10/25/20 Principal diagnosis: Cardiac arrest; Septic Shock; Ac. hypoxemic & hypercapnic resp failure; MOE Interval history: Patient is seen today for: Cardiac arrest with ROSC; Severe septic and cardiogenic shock; Acute respiratory failure with hypoxemia and hypercarbia; Acute pulmonary edema; MOE; Lactic acidosis; severe metabolic acidosis; Bilater al pneumonia; aspiration pneumonia; Elevated troponins Seen and examined at bedside; 24hour events reviewed; nursing and respiratory care staff consulted; no adverse overnight events reported to me; resting peacefully in bed; not tolerating SBT well today; AMS is persistent; no emesis or overt aspiration Objective Vital Signs - 12hr 10/25/20 10/25/20 10/25/20 01:30 02:00 02:30 Temperature Pulse Rate 91 H 77 79 Pulse Rate [ From Monitor] Respiratory 19 15 15 Rate Blood Pressure 200/107 124/69 122/66 O2 Sat by Pulse 100 99 99 Oximetry 10/25/20 10/25/20 10/25/20 03:00 03:30 03:38 Temperature 99.4 F Pulse Rate 85 88 Pulse Rate [ From Monitor] Respiratory 18 18 Rate Blood Pressure 122/66 155/96 O2 Sat by Pulse 98 99 Oximetry 10/25/20 10/25/20 10/25/20 03:52 04:00 04:30 Temperature Pulse Rate 86 86 86 Pulse Rate [ 88 From Monitor] Respiratory 18 17 Rate Blood Pressure 155/96 141/96 166/86 O2 Sat by Pulse 99 99 99 Oximetry 10/25/20 10/25/20 10/25/20 05:00 05:17 05:30 Temperature Pulse Rate 85 86 85 Pulse Rate [ From Monitor] Respiratory 17 18 Rate Blood Pressure 150/78 150/78 160/88 O2 Sat by Pulse 99 99 Oximetry 10/25/20 10/25/20 10/25/20 06:00 08:00 08:25 Temperature 98.7 F Pulse Rate 89 99 H Pulse Rate [ From Monitor] Respiratory 26 H 25 H Rate Blood Pressure 144/93 154/91 O2 Sat by Pulse 99 98 Oximetry 10/25/20 10/25/20 10/25/20 08:36 12:00 12:02 Temperature 98.9 F Pulse Rate 90 71 Pulse Rate [ From Monitor] Respiratory 21 Rate Blood Pressure 204/113 183/110 O2 Sat by Pulse 99 Oximetry Constitutional: appears uncomfortable, other (middle aged obese male with mildly increased respiratory efort at rest) Eyes: non-icteric ENT: oropharynx moist, oropharyngeal exudate pre, other (ETT 24 cm ANNIE) Neck: supple, no lymphadenopathy, no JVD Effort: mildly labored Ascultation: Bilateral: clear, diminished breath sounds, rhonchi (scant) Percussion: Bilateral: not dull Cardiovascular: regular rate and rhythm, other (S1,S2) Gastrointestinal: normoactive bowel sounds, soft, non-tender, non-distended (protuberant) Integumentary: normal Extremities: no cyanosis, no edema, pulses normal, no ischemia or petechiae Neurologic: pupils equal and round, unable to assess Psychiatric: other (unable to assess re: AMS) CBC and BMP: 10/25/20 08:55 10/25/20 08:55 ABG, PT/INR, D-dimer: ABG ABG pH 7.334 (7.320-7.450) 10/23/20 05:11 POC ABG pCO2 63.6 mmHg (32.0-48.0) H 10/23/20 05:11 ABG pCO2 55.5 mm Hg 10/16/20 05:10 POC ABG pO2 81.2 mmHg (83-108) L 10/23/20 05:11 ABG pO2 104.5 mm Hg (80.0-90.0) H 10/16/20 05:10 POC ABG HCO3 33.1 10/23/20 05:11 ABG O2 Saturation 96.0 (0-100) 10/23/20 05:11 PT/INR, D-dimer PT 13.8 Sec. (12.2-14.9) 10/10/20 18:18 INR 1.07 (0.87-1.13) 10/10/20 18:18 D-Dimer 679.5 ng/mlDDU (0-234) H 10/10/20 10:48 Abnormal lab findings: Abnormal Labs 10/10/20 10/10/20 10/10/20 10:46 10:46 10:46 WBC RBC Hgb Hct RDW Lymph % (Auto) [place] % (Auto) Lymph # (Auto) [place] # (Auto) Seg Neutrophils % Lymphocytes % (Manual) Monocytes % (Manual) Seg Neutrophils # Seg Neutrophils # Man Lymphocytes # (Manual) Monocytes # (Manual) D-Dimer Heparin Anti-Xa Level ABG pH POC ABG pCO2 POC ABG pO2 ABG pO2 ABG HCO3 ABG O2 Saturation ABG Base Excess ABG Hemoglobin ABG Oxyhemoglobin ABG Sodium ABG Potassium ABG Chloride ABG Glucose VBG pH Oxyhemoglobin Carboxyhemoglobin Sodium Potassium Chloride Carbon Dioxide BUN Creatinine Glucose POC Glucose Lactic Acid 13.60 H* Calcium Phosphorus Magnesium Total Bilirubin AST ALT Ammonia 214.0 H Lactate Dehydrogenase Total Creatine Kinase CK-MB (CK-2) Troponin T NT-Pro-B Natriuret Pep Total Protein Albumin Triglycerides TSH 6.260 H Arterial Blood Glucose Arterial Blood Ionized Calcium Urine pH Urine WBC (Auto) Urine Creatinine 10/10/20 10/10/20 10/10/20 10:46 10:48 10:48 WBC RBC 5.28 H Hgb 15.5 H Hct 48.8 H RDW Lymph % (Auto) [place] % (Auto) Lymph # (Auto) [place] # (Auto) Seg Neutrophils % Lymphocytes % (Manual) 42.0 H Monocytes % (Manual) Seg Neutrophils # Seg Neutrophils # Man Lymphocytes # (Manual) Monocytes # (Manual) D-Dimer Heparin Anti-Xa Level ABG pH POC ABG pCO2 POC ABG pO2 ABG pO2 ABG HCO3 ABG O2 Saturation ABG Base Excess ABG Hemoglobin ABG Oxyhemoglobin ABG Sodium ABG Potassium ABG Chloride ABG Glucose VBG pH Oxyhemoglobin Carboxyhemoglobin Sodium Potassium 3.3 L Chloride 91.2 L Carbon Dioxide BUN Creatinine 1.8 H Glucose 231 H POC Glucose Lactic Acid Calcium Phosphorus Magnesium Total Bilirubin AST 60 H ALT 57 H Ammonia Lactate Dehydrogenase Total Creatine Kinase CK-MB (CK-2) Troponin T NT-Pro-B Natriuret Pep 1187 H Total Protein 9.0 H Albumin Triglycerides TSH Arterial Blood Glucose Arterial Blood Ionized Calcium Urine pH Urine WBC (Auto) Urine Creatinine 10/10/20 10/10/20 10/10/20 10:48 10:48 10:48 WBC RBC Hgb Hct RDW Lymph % (Auto) [place] % (Auto) Lymph # (Auto) [place] # (Auto) Seg Neutrophils % Lymphocytes % (Manual) Monocytes % (Manual) Seg Neutrophils # Seg Neutrophils # Man Lymphocytes # (Manual) Monocytes # (Manual) D-Dimer 679.5 H Heparin Anti-Xa Level ABG pH POC ABG pCO2 POC ABG pO2 ABG pO2 ABG HCO3 ABG O2 Saturation ABG Base Excess ABG Hemoglobin ABG Oxyhemoglobin ABG Sodium ABG Potassium ABG Chloride ABG Glucose VBG pH 6.870 L* Oxyhemoglobin Carboxyhemoglobin Sodium Potassium Chloride Carbon Dioxide BUN Creatinine Glucose POC Glucose Lactic Acid Calcium Phosphorus Magnesium Total Bilirubin AST ALT Ammonia Lactate Dehydrogenase 386 H Total Creatine Kinase CK-MB (CK-2) Troponin T NT-Pro-B Natriuret Pep Total Protein Albumin Triglycerides TSH Arterial Blood Glucose Arterial Blood Ionized Calcium Urine pH Urine WBC (Auto) Urine Creatinine 10/10/20 10/10/20 10/10/20 14:10 14:20 15:50 WBC RBC Hgb Hct RDW Lymph % (Auto) [place] % (Auto) Lymph # (Auto) [place] # (Auto) Seg Neutrophils % Lymphocytes % (Manual) Monocytes % (Manual) Seg Neutrophils # Seg Neutrophils # Man Lymphocytes # (Manual) Monocytes # (Manual) D-Dimer Heparin Anti-Xa Level ABG pH 7.175 L 7.247 L POC ABG pCO2 85.0 H POC ABG pO2 43.7 L ABG pO2 60.3 L ABG HCO3 32.0 H ABG O2 Saturation 86.1 L ABG Base Excess ABG Hemoglobin ABG Oxyhemoglobin 67.7 L ABG Sodium ABG Potassium ABG Chloride ABG Glucose 247 H VBG pH Oxyhemoglobin 84.4 L Carboxyhemoglobin Sodium Potassium Chloride Carbon Dioxide BUN Creatinine Glucose POC Glucose Lactic Acid 4.00 H* Calcium Phosphorus Magnesium Total Bilirubin AST ALT Ammonia Lactate Dehydrogenase Total Creatine Kinase CK-MB (CK-2) Troponin T NT-Pro-B Natriuret Pep Total Protein Albumin Triglycerides TSH Arterial Blood Glucose 247 H Arterial Blood Ionized Calcium 4.4 L Urine pH Urine WBC (Auto) Urine Creatinine 10/10/20 10/10/20 10/10/20 15:50 16:22 18:18 WBC RBC Hgb Hct RDW Lymph % (Auto) [place] % (Auto) Lymph # (Auto) [place] # (Auto) Seg Neutrophils % Lymphocytes % (Manual) Monocytes % (Manual) Seg Neutrophils # Seg Neutrophils # Man Lymphocytes # (Manual) Monocytes # (Manual) D-Dimer Heparin Anti-Xa Level ABG pH 7.171 L POC ABG pCO2 96.6 H POC ABG pO2 55.3 L ABG pO2 ABG HCO3 ABG O2 Saturation ABG Base Excess ABG Hemoglobin ABG Oxyhemoglobin 81.4 L ABG Sodium ABG Potassium ABG Chloride ABG Glucose 115 H VBG pH Oxyhemoglobin Carboxyhemoglobin Sodium Potassium Chloride Carbon Dioxide BUN Creatinine Glucose POC Glucose 132 H Lactic Acid Calcium Phosphorus Magnesium Total Bilirubin AST ALT Ammonia Lactate Dehydrogenase Total Creatine Kinase 1192 H CK-MB (CK-2) 21.7 H Troponin T 0.377 H* D NT-Pro-B Natriuret Pep Total Protein Albumin Triglycerides TSH Arterial Blood Glucose 115 H Arterial Blood Ionized Calcium Urine pH Urine WBC (Auto) Urine Creatinine 10/10/20 10/10/20 10/10/20 18:18 18:18 22:49 WBC 23.0 H RBC 5.12 H Hgb Hct RDW Lymph % (Auto) [place] % (Auto) Lymph # (Auto) [place] # (Auto) Seg Neutrophils % Lymphocytes % (Manual) 4.0 L Monocytes % (Manual) 9.0 H Seg Neutrophils # Seg Neutrophils # Man 13.8 H Lymphocytes # (Manual) 0.9 L Monocytes # (Manual) 2.1 H D-Dimer Heparin Anti-Xa Level ABG pH POC ABG pCO2 POC ABG pO2 ABG pO2 ABG HCO3 ABG O2 Saturation ABG Base Excess ABG Hemoglobin ABG Oxyhemoglobin ABG Sodium ABG Potassium ABG Chloride ABG Glucose VBG pH Oxyhemoglobin Carboxyhemoglobin Sodium 146 H Potassium Chloride Carbon Dioxide 34 H D BUN 27 H Creatinine 2.7 H Glucose 102 H POC Glucose Lactic Acid Calcium Phosphorus Magnesium Total Bilirubin AST 90 H ALT 66 H Ammonia Lactate Dehydrogenase Total Creatine Kinase CK-MB (CK-2) Troponin T 0.273 H* D NT-Pro-B Natriuret Pep Total Protein Albumin Triglycerides TSH Arterial Blood Glucose Arterial Blood Ionized Calcium Urine pH Urine WBC (Auto) Urine Creatinine 10/11/20 10/11/20 10/11/20 02:00 02:00 02:00 WBC 17.3 H RBC Hgb Hct RDW Lymph % (Auto) 3.9 L [place] % (Auto) Lymph # (Auto) 0.7 L [place] # (Auto) Seg Neutrophils % 93.0 H Lymphocytes % (Manual) Monocytes % (Manual) Seg Neutrophils # 16.1 H Seg Neutrophils # Man Lymphocytes # (Manual) Monocytes # (Manual) D-Dimer Heparin Anti-Xa Level ABG pH POC ABG pCO2 POC ABG pO2 ABG pO2 ABG HCO3 ABG O2 Saturation ABG Base Excess ABG Hemoglobin ABG Oxyhemoglobin ABG Sodium ABG Potassium ABG Chloride ABG Glucose VBG pH Oxyhemoglobin Carboxyhemoglobin Sodium 149 H Potassium 3.3 L Chloride 95.3 L Carbon Dioxide 37 H BUN 29 H Creatinine 2.6 H Glucose POC Glucose Lactic Acid Calcium Phosphorus Magnesium Total Bilirubin AST 80 H ALT 59 H Ammonia Lactate Dehydrogenase Total Creatine Kinase CK-MB (CK-2) Troponin T 0.201 H* D NT-Pro-B Natriuret Pep Total Protein Albumin 3.6 L Triglycerides TSH Arterial Blood Glucose Arterial Blood Ionized Calcium Urine pH Urine WBC (Auto) Urine Creatinine 10/11/20 10/11/20 10/11/20 03:51 08:35 11:15 WBC RBC Hgb Hct RDW Lymph % (Auto) [place] % (Auto) Lymph # (Auto) [place] # (Auto) Seg Neutrophils % Lymphocytes % (Manual) Monocytes % (Manual) Seg Neutrophils # Seg Neutrophils # Man Lymphocytes # (Manual) Monocytes # (Manual) D-Dimer Heparin Anti-Xa Level 0.22 L ABG pH 7.491 H POC ABG pCO2 57.6 H POC ABG pO2 ABG pO2 ABG HCO3 ABG O2 Saturation ABG Base Excess ABG Hemoglobin ABG Oxyhemoglobin ABG Sodium 150.0 H ABG Potassium 3.1 L ABG Chloride 96.0 L ABG Glucose 122 H VBG pH Oxyhemoglobin Carboxyhemoglobin Sodium Potassium Chloride Carbon Dioxide BUN Creatinine Glucose POC Glucose 151 H Lactic Acid Calcium Phosphorus Magnesium Total Bilirubin AST ALT Ammonia Lactate Dehydrogenase Total Creatine Kinase CK-MB (CK-2) Troponin T NT-Pro-B Natriuret Pep Total Protein Albumin Triglycerides TSH Arterial Blood Glucose 122 H Arterial Blood Ionized Calcium 3.9 L Urine pH Urine WBC (Auto) Urine Creatinine 10/11/20 10/11/20 10/11/20 13:30 13:30 13:30 WBC 15.0 H RBC Hgb Hct RDW Lymph % (Auto) [place] % (Auto) Lymph # (Auto) [place] # (Auto) Seg Neutrophils % Lymphocytes % (Manual) Monocytes % (Manual) Seg Neutrophils # Seg Neutrophils # Man Lymphocytes # (Manual) Monocytes # (Manual) D-Dimer Heparin Anti-Xa Level ABG pH POC ABG pCO2 POC ABG pO2 ABG pO2 ABG HCO3 ABG O2 Saturation ABG Base Excess ABG Hemoglobin ABG Oxyhemoglobin ABG Sodium ABG Potassium ABG Chloride ABG Glucose VBG pH Oxyhemoglobin Carboxyhemoglobin Sodium Potassium Chloride Carbon Dioxide BUN Creatinine Glucose POC Glucose Lactic Acid Calcium Phosphorus Magnesium Total Bilirubin AST ALT Ammonia Lactate Dehydrogenase Total Creatine Kinase CK-MB (CK-2) Troponin T NT-Pro-B Natriuret Pep Total Protein Albumin Triglycerides TSH Arterial Blood Glucose Arterial Blood Ionized Calcium Urine pH 9.0 H Urine WBC (Auto) 18.0 H Urine Creatinine 80.5 H 10/11/20 10/11/20 10/12/20 17:17 23:14 03:53 WBC RBC Hgb Hct RDW Lymph % (Auto) [place] % (Auto) Lymph # (Auto) [place] # (Auto) Seg Neutrophils % Lymphocytes % (Manual) Monocytes % (Manual) Seg Neutrophils # Seg Neutrophils # Man Lymphocytes # (Manual) Monocytes # (Manual) D-Dimer Heparin Anti-Xa Level ABG pH 7.545 H POC ABG pCO2 54.6 H POC ABG pO2 231.9 H ABG pO2 ABG HCO3 ABG O2 Saturation ABG Base Excess ABG Hemoglobin ABG Oxyhemoglobin 98.5 H ABG Sodium 150.5 H ABG Potassium 3.2 L ABG Chloride 96.0 L ABG Glucose 148 H VBG pH Oxyhemoglobin Carboxyhemoglobin Sodium Potassium Chloride Carbon Dioxide BUN Creatinine Glucose POC Glucose 121 H 135 H Lactic Acid Calcium Phosphorus Magnesium Total Bilirubin AST ALT Ammonia Lactate Dehydrogenase Total Creatine Kinase CK-MB (CK-2) Troponin T NT-Pro-B Natriuret Pep Total Protein Albumin Triglycerides TSH Arterial Blood Glucose 148 H Arterial Blood Ionized Calcium 3.8 L Urine pH Urine WBC (Auto) Urine Creatinine 10/12/20 10/12/20 10/12/20 04:00 05:10 05:12 WBC 14.3 H RBC Hgb 11.6 L Hct 35.2 L RDW Lymph % (Auto) [place] % (Auto) Lymph # (Auto) [place] # (Auto) Seg Neutrophils % Lymphocytes % (Manual) Monocytes % (Manual) Seg Neutrophils # Seg Neutrophils # Man Lymphocytes # (Manual) Monocytes # (Manual) D-Dimer Heparin Anti-Xa Level ABG pH POC ABG pCO2 POC ABG pO2 ABG pO2 ABG HCO3 ABG O2 Saturation ABG Base Excess ABG Hemoglobin ABG Oxyhemoglobin ABG Sodium ABG Potassium ABG Chloride ABG Glucose VBG pH Oxyhemoglobin Carboxyhemoglobin Sodium 155 H Potassium 3.3 L Chloride 97.9 L Carbon Dioxide 47 H* D BUN 50 H Creatinine 3.4 H Glucose 146 H POC Glucose 137 H Lactic Acid Calcium 8.0 L Phosphorus Magnesium Total Bilirubin AST ALT Ammonia Lactate Dehydrogenase Total Creatine Kinase CK-MB (CK-2) Troponin T 0.125 H* D NT-Pro-B Natriuret Pep Total Protein Albumin Triglycerides TSH Arterial Blood Glucose Arterial Blood Ionized Calcium Urine pH Urine WBC (Auto) Urine Creatinine 10/12/20 10/12/20 10/12/20 11:39 16:01 19:49 WBC RBC Hgb Hct RDW Lymph % (Auto) [place] % (Auto) Lymph # (Auto) [place] # (Auto) Seg Neutrophils % Lymphocytes % (Manual) Monocytes % (Manual) Seg Neutrophils # Seg Neutrophils # Man Lymphocytes # (Manual) Monocytes # (Manual) D-Dimer Heparin Anti-Xa Level ABG pH POC ABG pCO2 POC ABG pO2 ABG pO2 ABG HCO3 ABG O2 Saturation ABG Base Excess ABG Hemoglobin ABG Oxyhemoglobin ABG Sodium ABG Potassium ABG Chloride ABG Glucose VBG pH Oxyhemoglobin Carboxyhemoglobin Sodium 157 H Potassium 3.3 L Chloride Carbon Dioxide 47 H* BUN 52 H Creatinine 3.0 H Glucose 137 H POC Glucose 138 H 119 H Lactic Acid Calcium 8.0 L Phosphorus Magnesium Total Bilirubin AST ALT Ammonia Lactate Dehydrogenase Total Creatine Kinase CK-MB (CK-2) Troponin T NT-Pro-B Natriuret Pep Total Protein Albumin Triglycerides TSH Arterial Blood Glucose Arterial Blood Ionized Calcium Urine pH Urine WBC (Auto) Urine Creatinine 10/12/20 10/13/20 10/13/20 23:37 02:28 04:52 WBC RBC Hgb Hct RDW Lymph % (Auto) [place] % (Auto) Lymph # (Auto) [place] # (Auto) Seg Neutrophils % Lymphocytes % (Manual) Monocytes % (Manual) Seg Neutrophils # Seg Neutrophils # Man Lymphocytes # (Manual) Monocytes # (Manual) D-Dimer Heparin Anti-Xa Level ABG pH 7.485 H POC ABG pCO2 57.1 H POC ABG pO2 ABG pO2 ABG HCO3 ABG O2 Saturation ABG Base Excess ABG Hemoglobin ABG Oxyhemoglobin ABG Sodium 152.4 H ABG Potassium ABG Chloride ABG Glucose 129 H VBG pH Oxyhemoglobin Carboxyhemoglobin Sodium 155 H Potassium Chloride Carbon Dioxide 45 H* BUN 52 H Creatinine 2.7 H Glucose 121 H POC Glucose 131 H Lactic Acid Calcium Phosphorus Magnesium 2.40 H Total Bilirubin AST ALT Ammonia Lactate Dehydrogenase Total Creatine Kinase CK-MB (CK-2) Troponin T NT-Pro-B Natriuret Pep Total Protein Albumin Triglycerides 278 H TSH Arterial Blood Glucose 129 H Arterial Blood Ionized Calcium 4.1 L Urine pH Urine WBC (Auto) Urine Creatinine 10/13/20 10/13/20 10/13/20 04:52 05:13 11:37 WBC 14.7 H RBC Hgb 11.7 L Hct RDW 15.8 H Lymph % (Auto) [place] % (Auto) Lymph # (Auto) [place] # (Auto) Seg Neutrophils % Lymphocytes % (Manual) Monocytes % (Manual) Seg Neutrophils # Seg Neutrophils # Man Lymphocytes # (Manual) Monocytes # (Manual) D-Dimer Heparin Anti-Xa Level ABG pH POC ABG pCO2 POC ABG pO2 ABG pO2 ABG HCO3 ABG O2 Saturation ABG Base Excess ABG Hemoglobin ABG Oxyhemoglobin ABG Sodium ABG Potassium ABG Chloride ABG Glucose VBG pH Oxyhemoglobin Carboxyhemoglobin Sodium Potassium Chloride Carbon Dioxide BUN Creatinine Glucose POC Glucose 116 H 116 H Lactic Acid Calcium Phosphorus Magnesium Total Bilirubin AST ALT Ammonia Lactate Dehydrogenase Total Creatine Kinase CK-MB (CK-2) Troponin T NT-Pro-B Natriuret Pep Total Protein Albumin Triglycerides TSH Arterial Blood Glucose Arterial Blood Ionized Calcium Urine pH Urine WBC (Auto) Urine Creatinine 10/13/20 10/14/20 10/14/20 17:50 03:45 04:46 WBC 11.1 H RBC Hgb Hct RDW 15.3 H Lymph % (Auto) [place] % (Auto) Lymph # (Auto) [place] # (Auto) Seg Neutrophils % Lymphocytes % (Manual) Monocytes % (Manual) Seg Neutrophils # Seg Neutrophils # Man Lymphocytes # (Manual) Monocytes # (Manual) D-Dimer Heparin Anti-Xa Level ABG pH POC ABG pCO2 59.6 H POC ABG pO2 ABG pO2 ABG HCO3 ABG O2 Saturation ABG Base Excess ABG Hemoglobin ABG Oxyhemoglobin ABG Sodium 151.4 H ABG Potassium 3.3 L ABG Chloride ABG Glucose 138 H VBG pH Oxyhemoglobin Carboxyhemoglobin 1.6 H Sodium Potassium Chloride Carbon Dioxide BUN Creatinine Glucose POC Glucose 140 H Lactic Acid Calcium Phosphorus Magnesium Total Bilirubin AST ALT Ammonia Lactate Dehydrogenase Total Creatine Kinase CK-MB (CK-2) Troponin T NT-Pro-B Natriuret Pep Total Protein Albumin Triglycerides TSH Arterial Blood Glucose 138 H Arterial Blood Ionized Calcium 4.5 L Urine pH Urine WBC (Auto) Urine Creatinine 10/14/20 10/14/20 10/14/20 04:46 05:10 11:11 WBC RBC Hgb Hct RDW Lymph % (Auto) [place] % (Auto) Lymph # (Auto) [place] # (Auto) Seg Neutrophils % Lymphocytes % (Manual) Monocytes % (Manual) Seg Neutrophils # Seg Neutrophils # Man Lymphocytes # (Manual) Monocytes # (Manual) D-Dimer Heparin Anti-Xa Level ABG pH POC ABG pCO2 POC ABG pO2 ABG pO2 ABG HCO3 ABG O2 Saturation ABG Base Excess ABG Hemoglobin ABG Oxyhemoglobin ABG Sodium ABG Potassium ABG Chloride ABG Glucose VBG pH Oxyhemoglobin Carboxyhemoglobin Sodium 152 H Potassium 3.5 L Chloride Carbon Dioxide 38 H D BUN 46 H Creatinine 2.3 H Glucose 127 H POC Glucose 116 H 114 H Lactic Acid Calcium Phosphorus Magnesium Total Bilirubin AST ALT Ammonia Lactate Dehydrogenase Total Creatine Kinase CK-MB (CK-2) Troponin T NT-Pro-B Natriuret Pep Total Protein Albumin Triglycerides TSH Arterial Blood Glucose Arterial Blood Ionized Calcium Urine pH Urine WBC (Auto) Urine Creatinine 10/14/20 10/14/20 10/15/20 18:53 23:23 04:12 WBC RBC Hgb Hct RDW Lymph % (Auto) [place] % (Auto) Lymph # (Auto) [place] # (Auto) Seg Neutrophils % Lymphocytes % (Manual) Monocytes % (Manual) Seg Neutrophils # Seg Neutrophils # Man Lymphocytes # (Manual) Monocytes # (Manual) D-Dimer Heparin Anti-Xa Level ABG pH POC ABG pCO2 POC ABG pO2 ABG pO2 ABG HCO3 ABG O2 Saturation ABG Base Excess ABG Hemoglobin ABG Oxyhemoglobin ABG Sodium ABG Potassium ABG Chloride ABG Glucose VBG pH Oxyhemoglobin Carboxyhemoglobin Sodium 149 H Potassium 3.2 L Chloride Carbon Dioxide 37 H BUN 40 H Creatinine 2.0 H Glucose 124 H POC Glucose 128 H 113 H Lactic Acid Calcium Phosphorus Magnesium Total Bilirubin AST ALT Ammonia Lactate Dehydrogenase Total Creatine Kinase CK-MB (CK-2) Troponin T NT-Pro-B Natriuret Pep Total Protein Albumin Triglycerides TSH Arterial Blood Glucose Arterial Blood Ionized Calcium Urine pH Urine WBC (Auto) Urine Creatinine 10/15/20 10/15/20 10/15/20 04:22 11:39 17:36 WBC RBC Hgb Hct RDW Lymph % (Auto) [place] % (Auto) Lymph # (Auto) [place] # (Auto) Seg Neutrophils % Lymphocytes % (Manual) Monocytes % (Manual) Seg Neutrophils # Seg Neutrophils # Man Lymphocytes # (Manual) Monocytes # (Manual) D-Dimer Heparin Anti-Xa Level ABG pH POC ABG pCO2 POC ABG pO2 ABG pO2 115.0 H ABG HCO3 38.1 H ABG O2 Saturation ABG Base Excess 11.3 H ABG Hemoglobin 11.0 L ABG Oxyhemoglobin ABG Sodium ABG Potassium ABG Chloride ABG Glucose VBG pH Oxyhemoglobin Carboxyhemoglobin Sodium Potassium Chloride Carbon Dioxide BUN Creatinine Glucose POC Glucose 123 H 118 H Lactic Acid Calcium Phosphorus Magnesium Total Bilirubin AST ALT Ammonia Lactate Dehydrogenase Total Creatine Kinase CK-MB (CK-2) Troponin T NT-Pro-B Natriuret Pep Total Protein Albumin Triglycerides TSH Arterial Blood Glucose Arterial Blood Ionized Calcium Urine pH Urine WBC (Auto) Urine Creatinine 10/15/20 10/16/20 10/16/20 23:18 03:13 05:10 WBC RBC Hgb Hct RDW Lymph % (Auto) [place] % (Auto) Lymph # (Auto) [place] # (Auto) Seg Neutrophils % Lymphocytes % (Manual) Monocytes % (Manual) Seg Neutrophils # Seg Neutrophils # Man Lymphocytes # (Manual) Monocytes # (Manual) D-Dimer Heparin Anti-Xa Level ABG pH POC ABG pCO2 POC ABG pO2 ABG pO2 104.5 H ABG HCO3 35.1 H ABG O2 Saturation ABG Base Excess 9.5 H ABG Hemoglobin 7.9 L ABG Oxyhemoglobin ABG Sodium ABG Potassium ABG Chloride ABG Glucose VBG pH Oxyhemoglobin Carboxyhemoglobin Sodium Potassium 3.3 L Chloride Carbon Dioxide 33 H BUN 37 H Creatinine 1.4 H Glucose 148 H POC Glucose 135 H Lactic Acid Calcium Phosphorus Magnesium 2.40 H Total Bilirubin AST ALT Ammonia Lactate Dehydrogenase Total Creatine Kinase CK-MB (CK-2) Troponin T NT-Pro-B Natriuret Pep Total Protein Albumin Triglycerides TSH Arterial Blood Glucose Arterial Blood Ionized Calcium Urine pH Urine WBC (Auto) Urine Creatinine 10/16/20 10/16/20 10/16/20 06:36 11:08 17:07 WBC RBC Hgb Hct RDW Lymph % (Auto) [place] % (Auto) Lymph # (Auto) [place] # (Auto) Seg Neutrophils % Lymphocytes % (Manual) Monocytes % (Manual) Seg Neutrophils # Seg Neutrophils # Man Lymphocytes # (Manual) Monocytes # (Manual) D-Dimer Heparin Anti-Xa Level ABG pH POC ABG pCO2 POC ABG pO2 ABG pO2 ABG HCO3 ABG O2 Saturation ABG Base Excess ABG Hemoglobin ABG Oxyhemoglobin ABG Sodium ABG Potassium ABG Chloride ABG Glucose VBG pH Oxyhemoglobin Carboxyhemoglobin Sodium Potassium Chloride Carbon Dioxide BUN Creatinine Glucose POC Glucose 150 H 111 H 132 H Lactic Acid Calcium Phosphorus Magnesium Total Bilirubin AST ALT Ammonia Lactate Dehydrogenase Total Creatine Kinase CK-MB (CK-2) Troponin T NT-Pro-B Natriuret Pep Total Protein Albumin Triglycerides TSH Arterial Blood Glucose Arterial Blood Ionized Calcium Urine pH Urine WBC (Auto) Urine Creatinine 10/16/20 10/17/20 10/17/20 23:38 03:32 03:32 WBC RBC Hgb Hct RDW Lymph % (Auto) [place] % (Auto) Lymph # (Auto) [place] # (Auto) Seg Neutrophils % Lymphocytes % (Manual) Monocytes % (Manual) Seg Neutrophils # Seg Neutrophils # Man Lymphocytes # (Manual) Monocytes # (Manual) D-Dimer Heparin Anti-Xa Level ABG pH POC ABG pCO2 POC ABG pO2 ABG pO2 ABG HCO3 ABG O2 Saturation ABG Base Excess ABG Hemoglobin ABG Oxyhemoglobin ABG Sodium ABG Potassium ABG Chloride ABG Glucose VBG pH Oxyhemoglobin Carboxyhemoglobin Sodium 146 H Potassium Chloride Carbon Dioxide 32 H BUN 57 H Creatinine 2.4 H D Glucose 124 H POC Glucose 117 H Lactic Acid Calcium Phosphorus 5.20 H D Magnesium Total Bilirubin AST ALT Ammonia Lactate Dehydrogenase Total Creatine Kinase CK-MB (CK-2) Troponin T NT-Pro-B Natriuret Pep Total Protein Albumin Triglycerides TSH Arterial Blood Glucose Arterial Blood Ionized Calcium Urine pH Urine WBC (Auto) Urine Creatinine 10/17/20 10/17/20 10/18/20 05:10 17:33 00:13 WBC RBC Hgb Hct RDW Lymph % (Auto) [place] % (Auto) Lymph # (Auto) [place] # (Auto) Seg Neutrophils % Lymphocytes % (Manual) Monocytes % (Manual) Seg Neutrophils # Seg Neutrophils # Man Lymphocytes # (Manual) Monocytes # (Manual) D-Dimer Heparin Anti-Xa Level ABG pH POC ABG pCO2 POC ABG pO2 ABG pO2 ABG HCO3 ABG O2 Saturation ABG Base Excess ABG Hemoglobin ABG Oxyhemoglobin ABG Sodium ABG Potassium ABG Chloride ABG Glucose VBG pH Oxyhemoglobin Carboxyhemoglobin Sodium Potassium Chloride Carbon Dioxide BUN Creatinine Glucose POC Glucose 122 H 121 H 23 L Lactic Acid Calcium Phosphorus Magnesium Total Bilirubin AST ALT Ammonia Lactate Dehydrogenase Total Creatine Kinase CK-MB (CK-2) Troponin T NT-Pro-B Natriuret Pep Total Protein Albumin Triglycerides TSH Arterial Blood Glucose Arterial Blood Ionized Calcium Urine pH Urine WBC (Auto) Urine Creatinine 10/18/20 10/18/20 10/18/20 00:16 03:27 03:27 WBC RBC Hgb 11.7 L Hct RDW Lymph % (Auto) [place] % (Auto) Lymph # (Auto) [place] # (Auto) Seg Neutrophils % Lymphocytes % (Manual) Monocytes % (Manual) Seg Neutrophils # Seg Neutrophils # Man Lymphocytes # (Manual) Monocytes # (Manual) D-Dimer Heparin Anti-Xa Level ABG pH POC ABG pCO2 POC ABG pO2 ABG pO2 ABG HCO3 ABG O2 Saturation ABG Base Excess ABG Hemoglobin ABG Oxyhemoglobin ABG Sodium ABG Potassium ABG Chloride ABG Glucose VBG pH Oxyhemoglobin Carboxyhemoglobin Sodium Potassium Chloride 97.6 L Carbon Dioxide BUN 90 H Creatinine 3.3 H Glucose 146 H POC Glucose 134 H Lactic Acid Calcium Phosphorus Magnesium Total Bilirubin 1.70 H AST ALT Ammonia Lactate Dehydrogenase Total Creatine Kinase CK-MB (CK-2) Troponin T NT-Pro-B Natriuret Pep Total Protein Albumin 3.1 L Triglycerides TSH Arterial Blood Glucose Arterial Blood Ionized Calcium Urine pH Urine WBC (Auto) Urine Creatinine 10/18/20 10/18/20 10/18/20 05:09 11:19 17:15 WBC RBC Hgb Hct RDW Lymph % (Auto) [place] % (Auto) Lymph # (Auto) [place] # (Auto) Seg Neutrophils % Lymphocytes % (Manual) Monocytes % (Manual) Seg Neutrophils # Seg Neutrophils # Man Lymphocytes # (Manual) Monocytes # (Manual) D-Dimer Heparin Anti-Xa Level ABG pH POC ABG pCO2 POC ABG pO2 ABG pO2 ABG HCO3 ABG O2 Saturation ABG Base Excess ABG Hemoglobin ABG Oxyhemoglobin ABG Sodium ABG Potassium ABG Chloride ABG Glucose VBG pH Oxyhemoglobin Carboxyhemoglobin Sodium Potassium Chloride Carbon Dioxide BUN Creatinine Glucose POC Glucose 144 H 145 H 151 H Lactic Acid Calcium Phosphorus Magnesium Total Bilirubin AST ALT Ammonia Lactate Dehydrogenase Total Creatine Kinase CK-MB (CK-2) Troponin T NT-Pro-B Natriuret Pep Total Protein Albumin Triglycerides TSH Arterial Blood Glucose Arterial Blood Ionized Calcium Urine pH Urine WBC (Auto) Urine Creatinine 10/18/20 10/18/20 10/19/20 23:16 Unknown 04:55 WBC RBC Hgb Hct RDW Lymph % (Auto) [place] % (Auto) Lymph # (Auto) [place] # (Auto) Seg Neutrophils % Lymphocytes % (Manual) Monocytes % (Manual) Seg Neutrophils # Seg Neutrophils # Man Lymphocytes # (Manual) Monocytes # (Manual) D-Dimer Heparin Anti-Xa Level ABG pH POC ABG pCO2 POC ABG pO2 ABG pO2 ABG HCO3 ABG O2 Saturation ABG Base Excess ABG Hemoglobin ABG Oxyhemoglobin ABG Sodium ABG Potassium ABG Chloride ABG Glucose VBG pH Oxyhemoglobin Carboxyhemoglobin Sodium Potassium Chloride Carbon Dioxide BUN 104 H Creatinine 3.1 H Glucose 139 H POC Glucose 123 H Lactic Acid Calcium Phosphorus Magnesium Total Bilirubin AST ALT Ammonia Lactate Dehydrogenase Total Creatine Kinase CK-MB (CK-2) Troponin T NT-Pro-B Natriuret Pep Total Protein Albumin Triglycerides TSH Arterial Blood Glucose Arterial Blood Ionized Calcium Urine pH Urine WBC (Auto) 115.0 H Urine Creatinine 10/19/20 10/19/20 10/19/20 04:55 11:35 13:14 WBC 15.1 H RBC Hgb 11.1 L Hct 34.4 L RDW Lymph % (Auto) 4.2 L [place] % (Auto) 11.9 H Lymph # (Auto) 0.6 L [place] # (Auto) 1.8 H Seg Neutrophils % 82.0 H Lymphocytes % (Manual) Monocytes % (Manual) Seg Neutrophils # 12.4 H Seg Neutrophils # Man Lymphocytes # (Manual) Monocytes # (Manual) D-Dimer Heparin Anti-Xa Level ABG pH POC ABG pCO2 POC ABG pO2 ABG pO2 ABG HCO3 ABG O2 Saturation ABG Base Excess ABG Hemoglobin ABG Oxyhemoglobin ABG Sodium ABG Potassium ABG Chloride ABG Glucose VBG pH Oxyhemoglobin Carboxyhemoglobin Sodium Potassium Chloride Carbon Dioxide BUN Creatinine Glucose POC Glucose 136 H Lactic Acid Calcium Phosphorus Magnesium Total Bilirubin AST ALT Ammonia Lactate Dehydrogenase Total Creatine Kinase CK-MB (CK-2) Troponin T NT-Pro-B Natriuret Pep Total Protein Albumin Triglycerides TSH Arterial Blood Glucose Arterial Blood Ionized Calcium Urine pH Urine WBC (Auto) Urine Creatinine 93.7 H 10/19/20 10/19/20 10/20/20 17:53 23:39 04:30 WBC RBC Hgb Hct RDW Lymph % (Auto) [place] % (Auto) Lymph # (Auto) [place] # (Auto) Seg Neutrophils % Lymphocytes % (Manual) Monocytes % (Manual) Seg Neutrophils # Seg Neutrophils # Man Lymphocytes # (Manual) Monocytes # (Manual) D-Dimer Heparin Anti-Xa Level ABG pH POC ABG pCO2 POC ABG pO2 ABG pO2 ABG HCO3 ABG O2 Saturation ABG Base Excess ABG Hemoglobin ABG Oxyhemoglobin ABG Sodium ABG Potassium ABG Chloride ABG Glucose VBG pH Oxyhemoglobin Carboxyhemoglobin Sodium Potassium Chloride Carbon Dioxide BUN 104 H Creatinine 2.8 H Glucose 151 H POC Glucose 137 H 133 H Lactic Acid Calcium Phosphorus Magnesium Total Bilirubin AST ALT Ammonia Lactate Dehydrogenase Total Creatine Kinase CK-MB (CK-2) Troponin T NT-Pro-B Natriuret Pep Total Protein Albumin Triglycerides TSH Arterial Blood Glucose Arterial Blood Ionized Calcium Urine pH Urine WBC (Auto) Urine Creatinine 10/20/20 10/20/20 10/20/20 04:30 05:38 11:34 WBC 17.9 H RBC Hgb 11.7 L Hct RDW Lymph % (Auto) [place] % (Auto) Lymph # (Auto) [place] # (Auto) Seg Neutrophils % Lymphocytes % (Manual) Monocytes % (Manual) Seg Neutrophils # Seg Neutrophils # Man Lymphocytes # (Manual) Monocytes # (Manual) D-Dimer Heparin Anti-Xa Level ABG pH POC ABG pCO2 POC ABG pO2 ABG pO2 ABG HCO3 ABG O2 Saturation ABG Base Excess ABG Hemoglobin ABG Oxyhemoglobin ABG Sodium ABG Potassium ABG Chloride ABG Glucose VBG pH Oxyhemoglobin Carboxyhemoglobin Sodium Potassium Chloride Carbon Dioxide BUN Creatinine Glucose POC Glucose 164 H 148 H Lactic Acid Calcium Phosphorus Magnesium Total Bilirubin AST ALT Ammonia Lactate Dehydrogenase Total Creatine Kinase CK-MB (CK-2) Troponin T NT-Pro-B Natriuret Pep Total Protein Albumin Triglycerides TSH Arterial Blood Glucose Arterial Blood Ionized Calcium Urine pH Urine WBC (Auto) Urine Creatinine 10/20/20 10/20/2010/20/21 17:40 20:20 23:29 WBC RBC Hgb Hct RDW Lymph % (Auto) [place] % (Auto) Lymph # (Auto) [place] # (Auto) Seg Neutrophils % Lymphocytes % (Manual) Monocytes % (Manual) Seg Neutrophils # Seg Neutrophils # Man Lymphocytes # (Manual) Monocytes # (Manual) D-Dimer Heparin Anti-Xa Level ABG pH 7.292 L POC ABG pCO2 68.5 H POC ABG pO2 ABG pO2 ABG HCO3 ABG O2 Saturation ABG Base Excess ABG Hemoglobin 11.6 L ABG Oxyhemoglobin ABG Sodium ABG Potassium ABG Chloride ABG Glucose 145 H VBG pH Oxyhemoglobin Carboxyhemoglobin Sodium Potassium Chloride Carbon Dioxide BUN Creatinine Glucose POC Glucose 130 H 136 H Lactic Acid Calcium Phosphorus Magnesium Total Bilirubin AST ALT Ammonia Lactate Dehydrogenase Total Creatine Kinase CK-MB (CK-2) Troponin T NT-Pro-B Natriuret Pep Total Protein Albumin Triglycerides TSH Arterial Blood Glucose 145 H Arterial Blood Ionized Calcium Urine pH Urine WBC (Auto) Urine Creatinine 10/21/20 10/21/20 10/21/20 04:20 06:26 06:30 WBC RBC Hgb Hct RDW Lymph % (Auto) [place] % (Auto) Lymph # (Auto) [place] # (Auto) Seg Neutrophils % Lymphocytes % (Manual) Monocytes % (Manual) Seg Neutrophils # Seg Neutrophils # Man Lymphocytes # (Manual) Monocytes # (Manual) D-Dimer Heparin Anti-Xa Level ABG pH 7.262 L POC ABG pCO2 72.4 H POC ABG pO2 81.6 L ABG pO2 ABG HCO3 ABG O2 Saturation ABG Base Excess ABG Hemoglobin 11.6 L ABG Oxyhemoglobin ABG Sodium ABG Potassium ABG Chloride ABG Glucose 140 H VBG pH Oxyhemoglobin Carboxyhemoglobin Sodium Potassium Chloride Carbon Dioxide 33 H BUN 104 H Creatinine 2.9 H Glucose 153 H POC Glucose 128 H Lactic Acid Calcium Phosphorus Magnesium Total Bilirubin AST ALT Ammonia Lactate Dehydrogenase Total Creatine Kinase CK-MB (CK-2) Troponin T NT-Pro-B Natriuret Pep Total Protein Albumin Triglycerides TSH Arterial Blood Glucose 140 H Arterial Blood Ionized Calcium Urine pH Urine WBC (Auto) Urine Creatinine 10/21/20 10/21/20 10/21/20 06:30 11:24 17:21 WBC 13.3 H RBC Hgb 10.7 L Hct 32.7 L RDW Lymph % (Auto) [place] % (Auto) Lymph # (Auto) [place] # (Auto) Seg Neutrophils % Lymphocytes % (Manual) Monocytes % (Manual) Seg Neutrophils # Seg Neutrophils # Man Lymphocytes # (Manual) Monocytes # (Manual) D-Dimer Heparin Anti-Xa Level ABG pH POC ABG pCO2 POC ABG pO2 ABG pO2 ABG HCO3 ABG O2 Saturation ABG Base Excess ABG Hemoglobin ABG Oxyhemoglobin ABG Sodium ABG Potassium ABG Chloride ABG Glucose VBG pH Oxyhemoglobin Carboxyhemoglobin Sodium Potassium Chloride Carbon Dioxide BUN Creatinine Glucose POC Glucose 178 H 138 H Lactic Acid Calcium Phosphorus Magnesium Total Bilirubin AST ALT Ammonia Lactate Dehydrogenase Total Creatine Kinase CK-MB (CK-2) Troponin T NT-Pro-B Natriuret Pep Total Protein Albumin Triglycerides TSH Arterial Blood Glucose Arterial Blood Ionized Calcium Urine pH Urine WBC (Auto) Urine Creatinine 10/22/20 10/22/20 10/22/20 00:05 04:30 06:15 WBC RBC Hgb Hct RDW Lymph % (Auto) [place] % (Auto) Lymph # (Auto) [place] # (Auto) Seg Neutrophils % Lymphocytes % (Manual) Monocytes % (Manual) Seg Neutrophils # Seg Neutrophils # Man Lymphocytes # (Manual) Monocytes # (Manual) D-Dimer Heparin Anti-Xa Level ABG pH 7.225 L POC ABG pCO2 76.6 H POC ABG pO2 ABG pO2 ABG HCO3 ABG O2 Saturation ABG Base Excess ABG Hemoglobin 11.1 L ABG Oxyhemoglobin ABG Sodium ABG Potassium ABG Chloride ABG Glucose 151 H VBG pH Oxyhemoglobin Carboxyhemoglobin Sodium Potassium Chloride Carbon Dioxide 32 H BUN 103 H Creatinine 2.7 H Glucose 151 H POC Glucose 135 H Lactic Acid Calcium Phosphorus Magnesium Total Bilirubin AST ALT Ammonia Lactate Dehydrogenase Total Creatine Kinase CK-MB (CK-2) Troponin T NT-Pro-B Natriuret Pep Total Protein Albumin Triglycerides TSH Arterial Blood Glucose 151 H Arterial Blood Ionized Calcium Urine pH Urine WBC (Auto) Urine Creatinine 10/22/20 10/22/20 10/22/20 06:18 11:34 11:44 WBC RBC Hgb Hct RDW Lymph % (Auto) [place] % (Auto) Lymph # (Auto) [place] # (Auto) Seg Neutrophils % Lymphocytes % (Manual) Monocytes % (Manual) Seg Neutrophils # Seg Neutrophils # Man Lymphocytes # (Manual) Monocytes # (Manual) D-Dimer Heparin Anti-Xa Level ABG pH 7.278 L POC ABG pCO2 67.8 H POC ABG pO2 ABG pO2 ABG HCO3 ABG O2 Saturation ABG Base Excess ABG Hemoglobin 10.2 L ABG Oxyhemoglobin ABG Sodium ABG Potassium ABG Chloride ABG Glucose 172 H VBG pH Oxyhemoglobin Carboxyhemoglobin Sodium Potassium Chloride Carbon Dioxide BUN Creatinine Glucose POC Glucose 137 H 147 H Lactic Acid Calcium Phosphorus Magnesium Total Bilirubin AST ALT Ammonia Lactate Dehydrogenase Total Creatine Kinase CK-MB (CK-2) Troponin T NT-Pro-B Natriuret Pep Total Protein Albumin Triglycerides TSH Arterial Blood Glucose 172 H Arterial Blood Ionized Calcium Urine pH Urine WBC (Auto) Urine Creatinine 10/22/20 10/22/20 10/23/20 17:40 23:55 05:11 WBC RBC Hgb Hct RDW Lymph % (Auto) [place] % (Auto) Lymph # (Auto) [place] # (Auto) Seg Neutrophils % Lymphocytes % (Manual) Monocytes % (Manual) Seg Neutrophils # Seg Neutrophils # Man Lymphocytes # (Manual) Monocytes # (Manual) D-Dimer Heparin Anti-Xa Level ABG pH POC ABG pCO2 63.6 H POC ABG pO2 81.2 L ABG pO2 ABG HCO3 ABG O2 Saturation ABG Base Excess ABG Hemoglobin 10.6 L ABG Oxyhemoglobin ABG Sodium ABG Potassium ABG Chloride 109.0 H ABG Glucose 149 H VBG pH Oxyhemoglobin Carboxyhemoglobin Sodium Potassium Chloride Carbon Dioxide BUN Creatinine Glucose POC Glucose 141 H 139 H Lactic Acid Calcium Phosphorus Magnesium Total Bilirubin AST ALT Ammonia Lactate Dehydrogenase Total Creatine Kinase CK-MB (CK-2) Troponin T NT-Pro-B Natriuret Pep Total Protein Albumin Triglycerides TSH Arterial Blood Glucose 149 H Arterial Blood Ionized Calcium Urine pH Urine WBC (Auto) Urine Creatinine 10/23/20 10/23/20 10/23/20 05:39 06:00 11:32 WBC RBC Hgb Hct RDW Lymph % (Auto) [place] % (Auto) Lymph # (Auto) [place] # (Auto) Seg Neutrophils % Lymphocytes % (Manual) Monocytes % (Manual) Seg Neutrophils # Seg Neutrophils # Man Lymphocytes # (Manual) Monocytes # (Manual) D-Dimer Heparin Anti-Xa Level ABG pH POC ABG pCO2 POC ABG pO2 ABG pO2 ABG HCO3 ABG O2 Saturation ABG Base Excess ABG Hemoglobin ABG Oxyhemoglobin ABG Sodium ABG Potassium ABG Chloride ABG Glucose VBG pH Oxyhemoglobin Carboxyhemoglobin Sodium 146 H Potassium Chloride Carbon Dioxide 35 H BUN 92 H Creatinine 2.0 H Glucose 144 H POC Glucose 139 H 176 H Lactic Acid Calcium Phosphorus Magnesium Total Bilirubin AST ALT Ammonia Lactate Dehydrogenase Total Creatine Kinase CK-MB (CK-2) Troponin T NT-Pro-B Natriuret Pep Total Protein Albumin Triglycerides TSH Arterial Blood Glucose Arterial Blood Ionized Calcium Urine pH Urine WBC (Auto) Urine Creatinine 10/23/20 10/23/20 10/24/20 11:34 17:55 05:33 WBC RBC Hgb Hct RDW Lymph % (Auto) [place] % (Auto) Lymph # (Auto) [place] # (Auto) Seg Neutrophils % Lymphocytes % (Manual) Monocytes % (Manual) Seg Neutrophils # Seg Neutrophils # Man Lymphocytes # (Manual) Monocytes # (Manual) D-Dimer Heparin Anti-Xa Level ABG pH POC ABG pCO2 POC ABG pO2 ABG pO2 ABG HCO3 ABG O2 Saturation ABG Base Excess ABG Hemoglobin ABG Oxyhemoglobin ABG Sodium ABG Potassium ABG Chloride ABG Glucose VBG pH Oxyhemoglobin Carboxyhemoglobin Sodium 147 H Potassium Chloride Carbon Dioxide 32 H BUN 76 H Creatinine 1.7 H Glucose 172 H POC Glucose 173 H 135 H Lactic Acid Calcium Phosphorus Magnesium Total Bilirubin AST ALT Ammonia Lactate Dehydrogenase Total Creatine Kinase CK-MB (CK-2) Troponin T NT-Pro-B Natriuret Pep Total Protein Albumin Triglycerides TSH Arterial Blood Glucose Arterial Blood Ionized Calcium Urine pH Urine WBC (Auto) Urine Creatinine 10/24/20 10/24/20 10/24/20 05:41 12:09 18:09 WBC RBC Hgb Hct RDW Lymph % (Auto) [place] % (Auto) Lymph # (Auto) [place] # (Auto) Seg Neutrophils % Lymphocytes % (Manual) Monocytes % (Manual) Seg Neutrophils # Seg Neutrophils # Man Lymphocytes # (Manual) Monocytes # (Manual) D-Dimer Heparin Anti-Xa Level ABG pH POC ABG pCO2 POC ABG pO2 ABG pO2 ABG HCO3 ABG O2 Saturation ABG Base Excess ABG Hemoglobin ABG Oxyhemoglobin ABG Sodium ABG Potassium ABG Chloride ABG Glucose VBG pH Oxyhemoglobin Carboxyhemoglobin Sodium Potassium Chloride Carbon Dioxide BUN Creatinine Glucose POC Glucose 156 H 154 H 132 H Lactic Acid Calcium Phosphorus Magnesium Total Bilirubin AST ALT Ammonia Lactate Dehydrogenase Total Creatine Kinase CK-MB (CK-2) Troponin T NT-Pro-B Natriuret Pep Total Protein Albumin Triglycerides TSH Arterial Blood Glucose Arterial Blood Ionized Calcium Urine pH Urine WBC (Auto) Urine Creatinine 10/24/20 10/25/20 10/25/20 23:39 05:29 08:55 WBC RBC Hgb Hct RDW Lymph % (Auto) [place] % (Auto) Lymph # (Auto) [place] # (Auto) Seg Neutrophils % Lymphocytes % (Manual) Monocytes % (Manual) Seg Neutrophils # Seg Neutrophils # Man Lymphocytes # (Manual) Monocytes # (Manual) D-Dimer Heparin Anti-Xa Level ABG pH POC ABG pCO2 POC ABG pO2 ABG pO2 ABG HCO3 ABG O2 Saturation ABG Base Excess ABG Hemoglobin ABG Oxyhemoglobin ABG Sodium ABG Potassium ABG Chloride ABG Glucose VBG pH Oxyhemoglobin Carboxyhemoglobin Sodium 150 H Potassium Chloride 108.3 H Carbon Dioxide 32 H BUN 57 H Creatinine 1.5 H Glucose 142 H POC Glucose 131 H 142 H Lactic Acid Calcium Phosphorus Magnesium Total Bilirubin AST ALT Ammonia Lactate Dehydrogenase Total Creatine Kinase CK-MB (CK-2) Troponin T NT-Pro-B Natriuret Pep Total Protein Albumin Triglycerides TSH Arterial Blood Glucose Arterial Blood Ionized Calcium Urine pH Urine WBC (Auto) Urine Creatinine 10/25/20 10/25/20 08:55 11:08 WBC 14.3 H RBC 3.57 L Hgb 10.3 L Hct 31.6 L RDW Lymph % (Auto) [place] % (Auto) Lymph # (Auto) [place] # (Auto) Seg Neutrophils % Lymphocytes % (Manual) Monocytes % (Manual) Seg Neutrophils # Seg Neutrophils # Man Lymphocytes # (Manual) Monocytes # (Manual) D-Dimer Heparin Anti-Xa Level ABG pH POC ABG pCO2 POC ABG pO2 ABG pO2 ABG HCO3 ABG O2 Saturation ABG Base Excess ABG Hemoglobin ABG Oxyhemoglobin ABG Sodium ABG Potassium ABG Chloride ABG Glucose VBG pH Oxyhemoglobin Carboxyhemoglobin Sodium Potassium Chloride Carbon Dioxide BUN Creatinine Glucose POC Glucose 157 H Lactic Acid Calcium Phosphorus Magnesium Total Bilirubin AST ALT Ammonia Lactate Dehydrogenase Total Creatine Kinase CK-MB (CK-2) Troponin T NT-Pro-B Natriuret Pep Total Protein Albumin Triglycerides TSH Arterial Blood Glucose Arterial Blood Ionized Calcium Urine pH Urine WBC (Auto) Urine Creatinine Additional Studies: MRI: anoxic encephalopathy vs status epilepticus Allied health notes reviewed: nursing
[2020-10-25] MEDS: amLODIPine 10 MG TAB PO SCH (13:30)
--- NOTE | 2020-10-25 13:34 | Progress Note ---
Assessment and Plan Pt remains intubated, intermittently sedated, intermittent blinking of eyes to painful stimulus (sternal rub) noted. Neurology f/u noted - pt with suspected anoxic brain injury. Brain MRI shows diffuse restricted diffusion and increased T2 signal in the cerebral cortex, findings can be seen in setting of anoxic brain injury and/or status epilepticus. Per primary team, pt is not tolerating weaning from ventilator. Recommend further discussion with pt's family per primary team regarding current assessment/plan and goals of care. Trach/PEG may be an appropriate option at this point. Cont to optimize anti-hypertensive regimen - norvasc added today per primary team. No systemic AC at this time in regards to AFib/AFlutter given h/o GI bleeding while on heparin gtt. GI team is following. Renal indices are improving - follow nephrology recs. Overall guarded prognosis. Continue supportive measures. The patient has been seen in conjunction with Dr. Mercedes who agrees with the assessment and plan of care. - Patient Problems (1) AMS (altered mental status) Current Visit: Yes Status: Acute (2) Cardiopulmonary arrest with successful resuscitation Current Visit: Yes Status: Acute (3) Acute respiratory failure Current Visit: Yes Status: Acute Qualifiers: Respiratory failure complication: hypoxia and hypercapnia Qualified Code(s): J96.01 - Acute respiratory failure with hypoxia; J96.02 - Acute respiratory failure with hypercapnia (4) Bilateral pneumonia Current Visit: Yes Status: Acute (5) Sepsis with hypotension Current Visit: Yes Status: Acute (6) Person under investigation for COVID-19 Current Visit: Yes Status: Ruled-out Plan to address problem: COVID-19 testing negative (7) Seizure Current Visit: Yes Status: Suspected (8) NSTEMI (non-ST elevated myocardial infarction) Current Visit: Yes Status: Acute Plan to address problem: suspect type II (9) MOE (acute kidney injury) Current Visit: Yes Status: Acute (10) GI bleed Current Visit: Yes Status: Acute (11) Acute heart failure with preserved ejection fraction (HFpEF) Current Visit: Yes Status: Acute (12) Hypernatremia Current Visit: Yes Status: Acute (13) Atrial fibrillation and flutter Current Visit: Yes Status: Acute (14) Anemia Current Visit: Yes Status: Acute Subjective Date of service: 10/25/20 Principal diagnosis: Cardiac arrest; Septic Shock; Ac. hypoxemic & hypercapnic resp failure; MOE Interval history: pt remains intubated, intermittently sedated, intermittent blinking of eyes to painful stimulus (sternal rub) noted. tele reviewed - in SR HR 60-70s. Objective Last Vital Signs Temp 98.9 F 10/25/20 12:00 Pulse 73 10/25/20 13:31 Resp 21 10/25/20 12:02 BP 167/89 10/25/20 13:31 Pulse Ox 99 10/25/20 12:02 - Physical Examination General: Other (intubated) HEENT: Positive: Normocephaly Neck: Positive: neck supple, trachea midline Cardiac: Positive: Reg Rate and Rhythm, S1/S2 Lungs: Positive: Decreased Breath Sounds, Oxygen, Ventilated Respirations Neuro: Positive: Other (intubated) Abdomen: Positive: Soft, Active Bowel Sounds Skin: Negative: Rash Extremities: Present: lower extr. pulses. Absent: edema - Labs and Meds CBC 10/25/20 Range/Units 08:55 WBC 14.3 H (4.5-11.0) K/mm3 RBC 3.57 L (3.65-5.03) M/mm3 Hgb 10.3 L (11.8-15.2) gm/dl Hct 31.6 L (35.5-45.6) % Plt Count 339 (140-440) K/mm3 Comprehensive Metabolic Panel 10/25/20 Range/Units 08:55 Sodium 150 H (137-145) mmol/L Potassium 3.7 (3.6-5.0) mmol/L Chloride 108.3 H (98-107) mmol/L Carbon Dioxide 32 H (22-30) mmol/L BUN 57 H (9-20) mg/dL Creatinine 1.5 H (0.8-1.3) mg/dL Glucose 142 H (75-100) mg/dL Calcium 9.9 (8.4-10.2) mg/dL - Imaging and Cardiology EKG: report reviewed, image reviewed Echo: report reviewed (10/10/2020 - mod LVH, EF 55-60%, mild diastolic dysfunction) - Telemetry EKG Rhythm: Sinus Rhythm - EKG Sinus rhythms and dysrhythmias: sinus rhythm Repolarization changes or abnormalities: ST suggestive of injury, Q-T interval prolongation - Allied health notes Allied health notes reviewed: RT
--- NOTE | 2020-10-25 14:02 | Progress Note ---
<JOIJOISee - Last Filed: 10/25/20 13:53> Assessment and Plan Assessment and plan: Sepsis s/p multiple Cardiac Arrests Right-sided pneumonia MRSA in tracheal aspirate NSTEMI type II Acute heart failure Hypernatremia Afib/Alutter Leukocytosis Acute hypoxic respiratory failure Acute kidney injury Transaminitis HTN Obesity -Infectious disease, CCM, GI, nephrology, cardiology consulted, appreciate recommendations -Antibiotic therapy -/6 recultured (blood/sputum/nasal discharge and urinalysis), tracheal aspirate with MRSA -Linezolid -Continue antihypertensive regimen (changed to p.o.), titrate as needed -s/p IV amiodarone for A. fib/a flutter now on p.o. beta-shital -Trend CBC, BMP, LFT -Continue mechanical ventilation, wean as tolerated, VAP bundle -Avoid nephrotoxic medications, strict intake and output, renal ultrasound shows no obstruction -10/10 echocardiogram shows left internal systolic function normal, moderate concentric left ventricle hypertrophy, mild to side diastolic dysfunction, LVEF 55 to 60% with no pericardial effusion -Bilateral Doppler ultrasound negative for DVT/SVT which shows bilateral popliteal cysts -MRI Brain shows restricted diffusion and increased T2 signal cerebral cortex which can be seen in the setting of anoxic brain injury and/ or status epilepticus. -Repeat EEG pending GI/DVT prophylaxis: SCDs to bilateral lower extremities while in bed, PPI, Heparin subq Dispo: ICU The high probability of a clinically significant, sudden or life threatening deterioration of the [multi] system(s) required my full and direct attention, intervention and personal management. The aggregate critical care time was [35] minutes. This time is in addition to time spent performing reported procedures but includes the following: [x] Data Review and interpretation [x] Patient assessment and monitoring of vital signs [x] Documentation [x] Medication orders and management History Interval history: This is a 55-year-old male with hypertension, asthma, obesity in the emergency by presents the emergency department on 10/10 after receiving a Covid vaccine being found unresponsive in his car in the emergency room by with no pulse and ACLS protocol was initiated from his car to emergency room #21 where it was continued. Patient was intubated after ROSC was achieved and a central line was placed and the patient was initiated on pressors. In the emergency room patient seems to have seizure-like activity and then collapsed and was unresponsive with no palpable pulse and ACLS was again initiated patient with achievement of ROSC. Patient again coded with ACLS protocol in the CT room. Upon arrival to the ICU patient again coded and ROSC was achieved and he was placed on epinephrine, Lasix, heparin and sodium bicarbonate drip and sedated with propofol. An NG tube was placed, A-line was placed. Patient was admitted to the hospitalist service with consult to CCM, nephrology, infectious disease and cardiology. 10/11: Patient COVID-19 PCR is pending and he remains on mechanical ventilation, examination on assist control 400/30/12/0.95. Patient is scheduled for an echocardiogram and we will obtain bilateral lower extremity Doppler ultrasound given elevated D-dimer. Patient was supposed to have a CTA chest when he coded yesterday. We will begin trickle feeding. This morning patient was on a heparin drip and was noted to have bloody drainage from his NG tube. Heparin drip was discontinued. 10/12: Patient remains on propofol and Lasix drip at the time my examination and he is on assist control 400/25/12/0.60. Patient is hypokalemic this morning which was repleted. Nephrology discontinued Lasix drip and Diamox. Patient is hypertensive and has been started on hydralazine and beta-shital IV. He has been titrated off his vasopressors since yesterday. Vancomycin discontinued. Patient is currently on cefepime and azithromycin. 10/13: Sedation vacation attempted today and patient was not responsive to verbal or painful stimuli, does not track or focus or follow commands. This morning the patient has some respiratory alkalosis on ABG, hypernatremia and metabolic alkalosis on BMP. His kidney functions has improved slightly. Patient still has leukocytosis and infectious disease was like to continue antibiotic therapy. GI evaluated the patient yesterday and started the patient on PPI does not p frieda to scope at this time. At the time my examination patient assist-control 400/20/12/0.40 and sedated on propofol at 20. 4/2: GI has recommended a CT abdomen since there is increased output from OG tube and an MRI brain without contrast has been ordered per neurology recommendations. EEG is pending and the patient has been started on Keppra per neurology.. Nutrition has been consulted for initiation of parenteral nutrition. Patient remains sedated with propofol and his hypernatremia, leuk ocytosis, acute kidney injury and metabolic alkalosis is improving. Patient has hypokalemia today which was repleted. At the time of my examination patient was on assist control 400/14/10/0.40 and CCM has dropped his rate to 12 and PEEP to 8. We have labs ordered for a.m. He was given a clonidine patch given persistent hypertension and he remains on D5 water per nephrology. 10/15: This morning patient was started to have a low-grade fever and he will continue antibiotic therapy per infectious disease. He will remove Tuttle catheter today and place a condom cath. Patient's renal function is worsening with a BUN/creatinine of 57/2.4 today and he has hyperphosphatemia at 5.2. This morning the time my examination patient is sedated on fentanyl and has TPN infusing. He is on assist control 400/12/8/0.35. Per GI we will start trial of tube feedings initiation has been reconsulted for orders. 10/18: Patient was febrile overnight and infectious disease has recultured (blood/sputum/right nostril culture) and sent in urinalysis. Cefepime was extended due to high fever and was started on vancomycin. Tube feeding is at goal and we will discontinue his parenteral nutrition. Patient is unable to obtain his MRI due to increased hypoxia and nasal secretions. He will be started on CPAP trials today. This time I examination patient was sedated on fentanyl and had PPN running at 42. His renal function tests have worsened and now has hyperchloremia. Hypernatremia has resolved. 10/19: Patient's T-max was 100.2 and he was pancultured yesterday, remains on antibiotic therapy and still has copious drainage from his nostrils. Patient still has leukocytosis however his/creatinine improved slightly to 3.1 from 3.3. Patient's urinalysis from yesterday shows pyuria. Patient's tracheal aspirate from yesterday grew Staph aureus. Patient is on cefepime and vancomycin. 10/20: This morning at the time my examination patient was CPAP trial of 6 and his T-max was 100.9. Patient sedated on fentanyl at 2 just received IV push fentanyl for tachycardia. Today his creatinine is 2.8 from 3.1 yesterday. Infectious disease has stopped cefepime and vancomycin and started linezolid and MRSA PCR is pending. Today removed his NG tube and replaced it with OG tube. We will keep the patient normal saline at 75 mL's per hour for 3 L. Patient developed A. fib/a flutter overnight and cardiology has increased his Lopressor and IV amiodarone. We requested neurology evaluation today. 10/21: Cardiology we will increase Lopressor to 3 times daily and discontinue his amiodarone drip. Infectious disease would like a sinus CT when feasible however patient did have a moment of desatting earlier this week when we attempted MRI brain. And again yesterday when we attempted a "trial run" with positioning at bedside Patient is on linezolid for 10 days per ID. 10/22/20; patient was seen and evaluated this morning, patient had low-grade fever overnight. Patient is on Lopressor per cardiology recommendation. Patient did not follow commands, no improvement in mental status. Evaluated by neurology yesterday and neurology once MRI or CAT scan but cannot be done because patient desats when he lies flat. Patient is on linezolid per ID recommendation. Continue NG tube feeding. Continue with Keppra. Patient is on assist control with PEEP of 6. Management plan was discussed with his yesterday. 10/23/2020; patient is on Zyvox for positive MRSA from tracheal aspirate and nasal secretion culture. Patient's mentation did not improve and does not follow commands. He was reevaluated by neurology and recommend MRI once patient is able to tolerate. MRI could not be done, CT scan could not be done because the patient could not lie flat. Clinically patient looks like she has anoxic encephalopathy. Patient is on NG tube feeding and on mechanical ventilation. Patient is on Keppra. Management plan was discussed with his . 10/24: This morning the patient is on AC TV 400,R 16, Peep 6 and FiO2 of 30% and sedated on 1mcg of Fentayl. He is hypernatremic and his kidney function tests have slightly improved. RN will attempt to obtain MRI Brain today since the patient was able to tolerate a "trial run" of being flat. [facility] plans to resume CPAP trials once MRI obtained. 10/25: This morning the time of examination patient was on assist control tidal volume 400, rate 16, PEEP 6, FiO2 30% and he is currently on CPAP. His MRI brain finding is consistent with status epilepticus or anoxic brain injury. Patient is EEG pending. No acute overnight events reported. Hospitalist Physical - Constitutional Vitals: Temp Pulse Resp BP Pulse Ox 98.9 F 73 21 167/89 99 10/25/20 12:00 10/25/20 13:31 10/25/20 12:02 10/25/20 13:31 10/25/20 12:02 General appearance: Present: no acute distress, well-nourished, other (Resting comfortably on mechanical ventilation, opens eye spontanously) - EENT Eyes: Present: PERRL ENT: poor dentition - Neck Neck: Present: normal ROM - Respiratory Respiratory effort: normal Respiratory: bilateral: diminished - Cardiovascular Rhythm: regular Heart Sounds: Present: S1 & S2. Absent: systolic murmur, diastolic murmur - Extremities Extremities: no ischemia, pulses intact, pulses symmetrical, normal temperature, normal color Peripheral Pulses: within normal limits - Abdominal General gastrointestinal: soft, non-tender, non-distended, normal bowel sounds - Integumentary Integumentary: Present: warm, dry - Psychiatric Psychiatric: other (sedated) - Neurologic Neurologic: other (does not follow commands, track/focus) HEART Score - HEART Score EKG: Non-specific Age: 45-65 Troponin: Troponin T 0.125 ng/mL (0.00-0.029) H* D 10/12/20 04:00 Troponin: 1-3x normal limit - Critical Actions Critical Actions: 4-6 pts:12-16.6% risk of adverse cardiac event. Should be admitted Results - Labs CBC & Chem 7: 10/25/20 08:55 10/25/20 08:55 Labs: Laboratory Last Values WBC 14.3 K/mm3 (4.5-11.0) H 10/25/20 08:55 RBC 3.57 M/mm3 (3.65-5.03) L 10/25/20 08:55 Hgb 10.3 gm/dl (11.8-15.2) L 10/25/20 08:55 Hct 31.6 % (35.5-45.6) L 10/25/20 08:55 MCV 88 fl (84-94) 10/25/20 08:55 MCH 29 pg (28-32) 10/25/20 08:55 MCHC 33 % (32-34) 10/25/20 08:55 RDW 14.8 % (13.2-15.2) 10/25/20 08:55 Plt Count 339 K/mm3 (140-440) 10/25/20 08:55 Lymph % (Auto) 4.2 % (13.4-35.0) L 10/19/20 04:55 [place] % (Auto) 11.9 % (0.0-7.3) H 10/19/20 04:55 Eos % (Auto) 1.6 % (0.0-4.3) 10/19/20 04:55 Baso % (Auto) 0.3 % (0.0-1.8) 10/19/20 04:55 Lymph # (Auto) 0.6 K/mm3 (1.2-5.4) L 10/19/20 04:55 [place] # (Auto) 1.8 K/mm3 (0.0-0.8) H 10/19/20 04:55 Eos # (Auto) 0.2 K/mm3 (0.0-0.4) 10/19/20 04:55 Baso # (Auto) 0.1 K/mm3 (0.0-0.1) 10/19/20 04:55 Add Manual Diff Complete 10/10/20 18:18 Total Counted 100 10/10/20 18:18 Seg Neutrophils % 82.0 % (40.0-70.0) H 10/19/20 04:55 Seg Neuts % (Manual) 60.0 % (40.0-70.0) 10/10/20 18:18 Band Neutrophils % 27.0 % 10/10/20 18:18 Lymphocytes % (Manual) 4.0 % (13.4-35.0) L 10/10/20 18:18 Monocytes % (Manual) 9.0 % (0.0-7.3) H 10/10/20 18:18 Eosinophils % (Manual) 4.0 % (0.0-4.3) 10/10/20 10:48 Metamyelocytes % 1.0 % 10/10/20 10:48 Nucleated RBC % Not Reportable 10/10/20 18:18 Seg Neutrophils # 12.4 K/mm3 (1.8-7.7) H 10/19/20 04:55 Seg Neutrophils # Man 13.8 K/mm3 (1.8-7.7) H 10/10/20 18:18 Band Neutrophils # 6.2 K/mm3 10/10/20 18:18 Lymphocytes # (Manual) 0.9 K/mm3 (1.2-5.4) L 10/10/20 18:18 Abs React Lymphs (Man) 0.0 K/mm3 10/10/20 18:18 Monocytes # (Manual) 2.1 K/mm3 (0.0-0.8) H 10/10/20 18:18 Eosinophils # (Manual) 0.0 K/mm3 (0.0-0.4) 10/10/20 18:18 Basophils # (Manual) 0.0 K/mm3 (0.0-0.1) 10/10/20 18:18 Metamyelocytes # 0.0 K/mm3 10/10/20 18:18 Myelocytes # 0.0 K/mm3 10/10/20 18:18 Promyelocytes # 0.0 K/mm3 10/10/20 18:18 Blast Cells # 0.0 K/mm3 10/10/20 18:18 WBC Morphology Not Reportable 10/10/20 18:18 Hypersegmented Neuts Not Reportable 10/10/20 18:18 Hyposegmented Neuts Not Reportable 10/10/20 18:18 Hypogranular Neuts Not Reportable 10/10/20 18:18 Smudge Cells Not Reportable 10/10/20 18:18 Toxic Granulation Not Reportable 10/10/20 18:18 Toxic Vacuolation Not Reportable 10/10/20 18:18 Dohle Bodies Not Reportable 10/10/20 18:18 Pelger-Huet Anomaly Not Reportable 10/10/20 18:18 Dionicio Rods Not Reportable 10/10/20 18:18 Platelet Estimate Consistent w auto 10/10/20 18:18 Clumped Platelets Not Reportable 10/10/20 18:18 Plt Clumps, EDTA Not Reportable 10/10/20 18:18 Large Platelets Rare 10/10/20 18:18 Giant Platelets Rare 10/10/20 18:18 Platelet Satelliting Not Reportable 10/10/20 18:18 Plt Morphology Comment Not Reportable 10/10/20 18:18 RBC Morphology Not Reportable 10/10/20 18:18 Dimorphic RBCs Not Reportable 10/10/20 18:18 Polychromasia Not Reportable 10/10/20 18:18 Hypochromasia Not Reportable 10/10/20 18:18 Poikilocytosis Not Reportable 10/10/20 18:18 Anisocytosis Not Reportable 10/10/20 18:18 Microcytosis Not Reportable 10/10/20 18:18 Macrocytosis Not Reportable 10/10/20 18:18 Spherocytes Not Reportable 10/10/20 18:18 Pappenheimer Bodies Not Reportable 10/10/20 18:18 Sickle Cells Not Reportable 10/10/20 18:18 Target Cells Not Reportable 10/10/20 18:18 Tear Drop Cells Not Reportable 10/10/20 18:18 Ovalocytes Not Reportable 10/10/20 18:18 Helmet Cells Not Reportable 10/10/20 18:18 [place] Bodies Not Reportable 10/10/20 18:18 Coila Rings Not Reportable 10/10/20 18:18 Aladdin Cells Not Reportable 10/10/20 18:18 Bite Cells Not Reportable 10/10/20 18:18 Crenated Cell Not Reportable 10/10/20 18:18 Elliptocytes Not Reportable 10/10/20 18:18 Acanthocytes (Spur) Not Reportable 10/10/20 18:18 Rouleaux Not Reportable 10/10/20 18:18 Hemoglobin C Crystals Not Reportable 10/10/20 18:18 Schistocytes Not Reportable 10/10/20 18:18 Malaria parasites Not Reportable 10/10/20 18:18 Mauricio Bodies Not Reportable 10/10/20 18:18 Hem Pathologist Commnt No 10/10/20 18:18 PT 13.8 Sec. (12.2-14.9) 10/10/20 18:18 INR 1.07 (0.87-1.13) 10/10/20 18:18 APTT 26.9 Sec. (24.2-36.6) 10/10/20 18:18 D-Dimer 679.5 ng/mlDDU (0-234) H 10/10/20 10:48 Heparin Anti-Xa Level 0.22 U.I./ml (0.3-0.7) L 10/11/20 08:35 ABG pH 7.334 (7.320-7.450) 10/23/20 05:11 POC ABG pCO2 63.6 mmHg (32.0-48.0) H 10/23/20 05:11 ABG pCO2 55.5 mm Hg 10/16/20 05:10 POC ABG pO2 81.2 mmHg (83-108) L 10/23/20 05:11 ABG pO2 104.5 mm Hg (80.0-90.0) H 10/16/20 05:10 POC ABG HCO3 33.1 10/23/20 05:11 ABG HCO3 35.1 mmol/L (20.0-26.0) H 10/16/20 05:10 ABG O2 Saturation 96.0 (0-100) 10/23/20 05:11 ABG O2 Content 10.8 (0.0-44) 10/16/20 05:10 POC ABG Base Excess 5.8 10/23/20 05:11 ABG Base Excess 9.5 mmol/L (-2.0-3.0) H 10/16/20 05:10 ABG Hemoglobin 10.6 (12.0-17.5) L 10/23/20 05:11 ABG Oxyhemoglobin 96.8 (94-98) 10/22/20 11:34 ABG Carboxyhemoglobin 1.9 % (0.0-5.0) 10/16/20 05:10 ABG Methemoglobin 0.1 (0.0-1.5) 10/22/20 11:34 ABG Sodium 143.6 mmol/L (136.0-145.0) 10/23/20 05:11 ABG Potassium 3.7 mmol/L (3.40-4.50) 10/23/20 05:11 ABG Chloride 109.0 mmol/L (98-107) H 10/23/20 05:11 ABG Glucose 149 mg/dL (65-95) H 10/23/20 05:11 VBG pH 6.870 (7.320-7.420) L* 10/10/20 10:48 Oxyhemoglobin 95.3 % (95.0-99.0) 10/16/20 05:10 Carboxyhemoglobin 0.7 (0.5-1.5) 10/22/20 11:34 FiO2 35 % 10/16/20 05:10 FiO2 % 30.0 10/23/20 05:11 Sodium 150 mmol/L (137-145) H 10/25/20 08:55 Potassium 3.7 mmol/L (3.6-5.0) 10/25/20 08:55 Chloride 108.3 mmol/L (98-107) H 10/25/20 08:55 Carbon Dioxide 32 mmol/L (22-30) H 10/25/20 08:55 Anion Gap 13 mmol/L 10/25/20 08:55 BUN 57 mg/dL (9-20) H 10/25/20 08:55 Creatinine 1.5 mg/dL (0.8-1.3) H 10/25/20 08:55 Estimated GFR 59 ml/min 10/25/20 08:55 BUN/Creatinine Ratio 38 % 10/25/20 08:55 Glucose 142 mg/dL (75-100) H 10/25/20 08:55 POC Glucose 157 mg/dL (70-105) H 10/25/20 11:08 Hemoglobin A1c 6.0 % (4-6) 10/11/20 02:00 Lactic Acid 1.10 mmol/L (0.7-2.0) 10/13/20 04:52 Calcium 9.9 mg/dL (8.4-10.2) 10/25/20 08:55 Phosphorus 5.20 mg/dL (2.5-4.5) H D 10/17/20 03:32 Magnesium 2.30 mg/dL (1.7-2.3) 10/17/20 03:32 Ferritin 81.4 ng/mL (30.0-300.0) 10/10/20 10:48 Total Bilirubin 1.70 mg/dL (0.1-1.2) H 10/18/20 03:27 AST 37 units/L (5-40) 10/18/20 03:27 ALT 32 units/L (7-56) 10/18/20 03:27 Alkaline Phosphatase 97 units/L (35-129) 10/18/20 03:27 Ammonia 214.0 umol/L (25-60) H 10/10/20 10:46 Lactate Dehydrogenase 386 units/L (91-180) H 10/10/20 10:48 Total Creatine Kinase 1192 units/L (55-170) H 10/10/20 18:18 CK-MB (CK-2) 21.7 ng/mL (0.0-4.0) H 10/10/20 18:18 CK-MB (CK-2) Rel Index 1.8 (0-4) 10/10/20 18:18 Troponin T 0.125 ng/mL (0.00-0.029) H* D 10/12/20 04:00 C-Reactive Protein 0.90 mg/dL (0.00-1.30) 10/10/20 10:48 NT-Pro-B Natriuret Pep 1187 pg/mL (0-900) H 10/10/20 10:46 Total Protein 6.3 g/dL (6.3-8.2) 10/18/20 03:27 Albumin 3.1 g/dL (3.9-5) L 10/18/20 03:27 Albumin/Globulin Ratio 1.0 % 10/18/20 03:27 Triglycerides 278 mg/dL (2-149) H 10/13/20 04:52 Cholesterol 138 mg/dL (50-199) 10/10/20 18:18 LDL Cholesterol Direct 76 mg/dL (50-130) 10/10/20 18:18 HDL Cholesterol 49 mg/dL (40-59) 10/10/20 18:18 Cholesterol/HDL Ratio 2.81 % 10/10/20 18:18 Procalcitonin 4.98 ng/mL (<0.15) 10/15/20 04:12 TSH 6.260 mlU/mL (0.270-4.200) H 10/10/20 10:46 Arterial Blood Glucose 149 mg/dL (65-95) H 10/23/20 05:11 Arterial Blood Ionized Calcium 5.2 mg/dL (4.6-5.3) 10/23/20 05:11 Urine Color Angelica (Yellow) 10/18/20 Unknown Urine Turbidity Cloudy (Clear) 10/18/20 Unknown Urine pH 5.0 (5.0-7.0) 10/18/20 Unknown Ur Specific [place] 1.017 (1.003-1.030) 10/18/20 Unknown Urine Protein 100 mg/dl mg/dL (Negative) 10/18/20 Unknown Urine Glucose (UA) Neg mg/dL (Negative) 10/18/20 Unknown Urine Ketones Neg mg/dL (Negative) 10/18/20 Unknown Urine Blood Lg (Negative) 10/18/20 Unknown Urine Nitrite Neg (Negative) 10/18/20 Unknown Urine Bilirubin Neg (Negative) 10/18/20 Unknown Urine Urobilinogen 4.0 mg/dL (<2.0) 10/18/20 Unknown Ur Leukocyte Esterase Neg (Negative) 10/18/20 Unknown Urine WBC (Auto) 115.0 /HPF (0.0-6.0) H 10/18/20 Unknown Urine RBC (Auto) 98.0 /HPF (0.0-6.0) 10/18/20 Unknown U Epithel Cells (Auto) 2.0 /HPF (0-13.0) 10/18/20 Unknown Urine WBC Clumps 3+ /HPF 10/18/20 Unknown Urine Mucus Few /HPF 10/11/20 13:30 Urine Eosinophils None seen (None Seen) 10/11/20 13:30 Urine Creatinine 93.7 mg/dL (0.1-20.0) H 10/19/20 13:14 Urine Sodium 25 mmol/L 10/19/20 13:14 Urine Urea Nitrogen 845 10/19/20 13:14 Nasal Screen MRSA (PCR) Positive (Negative) 10/20/20 13:30 Random Vancomycin 5.8 ug/mL (0-40.0) 10/21/20 06:30 Urine Opiates Screen Negative 10/10/20 10:50 Urine Methadone Screen Negative 10/10/20 10:50 Ur Barbiturates Screen Negative 10/10/20 10:50 Ur Phencyclidine Scrn Negative 10/10/20 10:50 Ur Amphetamines Screen Negative 10/10/20 10:50 U Benzodiazepines Scrn Negative 10/10/20 10:50 Urine Cocaine Screen Negative 10/10/20 10:50 U Marijuana (THC) Screen Positive 10/10/20 10:50 Drugs of Abuse Note Disclamer 10/10/20 10:50 Plasma/Serum Alcohol < 0.01 % (0-0.07) 10/10/20 10:48 Coronavirus (PCR) Negative (Negative) 10/11/20 Unknown Blood Type AB POSITIVE 10/10/20 10:48 Antibody Screen Negative 10/10/20 10:48 Tuttle/IV: Voiding Method Condom Catheter Active Medications - Current Medications Current Medications: Generic Name Dose Route Start Last Admin Trade Name Freq PRN Reason Stop Dose Admin Acetaminophen 650 mg 10/10/20 21:51 10/20/20 09:11 Acetaminophen 325 Mg Tab PO 650 mg Q4H PRN Administration Pain MILD(1-3)/Fever >100.5/SALVADOR Acetaminophen 650 mg 10/11/20 11:24 10/17/20 17:16 Acetaminophen 650 Mg Rect Supp MI 650 mg Q6H PRN Administration Fever >101 Albuterol 2.5 mg 10/11/20 13:12 Albuterol 2.5 Mg/3 Ml Nebu IH Q6HRT PRN Shortness Of Breath Amlodipine Besylate 10 mg 10/25/20 13:00 10/25/20 13:30 Amlodipine 10 Mg Tab PO 10 mg QDAY PEPITO Administration Lipase/Protease/Amylase 1 each 10/10/20 22:18 Lipase 10,500/Protease 25,000/Amylase 43,750 (Units) Dr Santana FEEDTUBE PRN PRN For Clogged Feeding Tube Clonidine HCl 0.3 mg 10/14/20 15:00 10/21/20 14:05 Clonidine Tts 0.3 Mg/24 Hr Patch TD 0.3 mg Fr PEPITO Administration Docusate Sodium 100 mg 10/16/20 22:00 10/25/20 09:01 Docusate Sodium 100 Mg/10 Ml Oral Liqd PO 100 mg BID PEPITO Administration Fentanyl 50 mcg 10/16/20 14:10 10/23/20 10:53 Fentanyl 100 Mcg/2 Ml Inj IV 50 mcg Q10MIN PRN Administration ANALGESIA Fluticasone Propionate 50 mcg 10/18/20 14:00 10/25/20 09:02 Fluticasone Propionate Nasal [place] 16 Gm NS 50 mcg BID PEPITO Administration Glycopyrrolate 2 mg 10/19/20 14:00 10/25/20 13:32 Glycopyrrolate 1 Mg Tab PO 2 mg Q6H PEPITO Administration Heparin Sodium (Porcine) 5,000 unit 10/11/20 22:00 10/25/20 09:02 Heparin 5,000 Unit/1 Ml Vial SUB-Q 5,000 unit Q12HR PEPITO Administration Hydralazine HCl 5 mg 10/15/20 20:25 10/24/20 08:20 Hydralazine 20 Mg/1 Ml Inj IV 5 mg Q6H PRN Administration Hypertension Hydralazine HCl 100 mg 10/24/20 09:30 10/25/20 13:31 Hydralazine 25 Mg Tab PO 100 mg Q8HR PEPITO Administration Hydrophilic Ointment 1 applic 10/10/20 10:34 Lip Therapy Vaseline TP Q2HR PRN Dry Lips Levetiracetam 500 mg/ Dextrose 105 mls @ 400 mls/hr 10/13/20 18:00 10/25/20 05:17 IV 400 mls/hr Q12H PEPITO Administration Fentanyl Citrate 2,000 mcg in 100 mls @ 6.175 mls/hr 10/16/20 15:00 10/24/20 17:48 Fentanyl Drip Premix IV 0.5 mcg/kg/hr TITR PEPITO 3.088 mls/hr Titration Protocol 1 MCG/KG/HR Linezolid 600 mg in 300 mls @ 300 mls/hr 10/20/20 12:00 10/25/20 09:01 Zyvox 600mg/300ml IV 10/29/20 22:59 300 mls/hr Q12HR PEPITO Administration Protocol Lansoprazole 30 mg 10/24/20 10:00 10/25/20 09:02 Lansoprazole 30 Mg Solutab FEEDTUBE 30 mg BID PEPITO Administration Metoclopramide HCl 10 mg 10/10/20 21:51 Metoclopramide 10 Mg/2 Ml Inj IV Q6H PRN Nausea And Vomiting Metoprolol Tartrate 100 mg 10/21/20 14:00 10/25/20 13:31 Metoprolol Tartrate 50 Mg Tab PO 100 mg TID PEPITO Administration Multi-Ingred Cream/Lotion/Oil/Oint 1 applic 10/10/20 10:34 Mineral Oil/Petrolatum, White Ophth Oint 3.5 Gm OU Q4HR PRN Dry Eye(s) Ondansetron HCl 4 mg 10/10/20 21:51 Ondansetron 4 Mg/2 Ml Inj IV Q3H PRN Nausea And Vomiting Polyethylene Glycol 17 gm 10/17/20 10:00 10/25/20 09:01 Polyethylene Glycol 3350 17 Gm Powder PO 17 gm QDAY PEPITO Administration Scopolamine 1 each 10/17/20 10:00 10/23/20 09:35 Scopolamine Transdermal Patch 72 Hr TD 1 each Q3D PEPITO Administration Simple Syrup 15 ml 10/10/20 22:18 Simple Syrup 15 Ml FEEDTUBE PRN PRN Hypoglycemia Simple Syrup 30 ml 10/10/20 22:18 Simple Syrup 15 Ml FEEDTUBE PRN PRN Hypoglycemia Sodium Bicarbonate 325 mg 10/10/20 22:18 Sodium Bicarbonate 325 Mg Tab FEEDTUBE PRN PRN For Clogged Feeding Tube Sodium Chloride 10 ml 10/10/20 22:00 10/25/20 09:01 Sodium Chloride 0.9% 10 Ml Flush Syringe IV 10 ml BID PEPITO Administration Sodium Chloride 10 ml 10/10/20 21:51 10/21/20 09:56 Sodium Chloride 0.9% 10 Ml Flush Syringe IV 10 ml PRN PRN Administration LINE FLUSH Nutrition/Malnutrition Assess - Dietary Evaluation Nutrition/Malnutrition Findings: Nutrition Notes Start: 10/11/20 08:38 Freq: Status: Active Protocol: Document 10/25/20 13:13 CW (Rec: 10/25/20 13:28 CW [id number]) Nutrition Notes Initial or Follow up Reassessment Current Diagnosis Acute Kidney Injury,Sepsis, Hypertension,Heart Failure, Respiratory Failure Other Pertinent Diagnosis GIB, pneu, MRSA NM, pulmonary edema Current Diet TF Nepro at 45 ml/hr Labs/Tests Na 150 BUN 57 Cr 1.5 BG 142 Pertinent Medications Miralax Colace Height 6 ft Weight 126.8 kg [place] Body Weight (kg) 80.90 BMI 37.9 Weight change and time frame Weight loss noted, will monitor Weight Status Morbidly Obese Subjective/Other Information F/U for TF tolerance. Pt remains mechanical vented. TF running at goal and is well tolerated. Na elevated, recommend increasing flush. Will await changing TF regimen to better neat protein needs once renal functioning further improves. Percent of energy/protein needs met: 100%/54% Burn Absent Trauma Absent Difficulty In Swallowing Current % PO Negligible Minimum of two criteria No Fluid Accumulation Mild (non-severe) #1 Nutrition Diagnosis Inadequate oral intake Diagnosis Progress(for reassessment Continues documentation) Is patient on ventilator? Yes Is Patient Ambulatory and/or Out of Bed No REE-([place]-See Arellano-confined to bed) 2584.764 Kcal/Kg value to use for calculation 14 Approximate Energy Requirements Using 1775 kcal/Kg Calculation Used for Recommendations Kcal/kg Additional Notes protein needs: >162g (>2 kgIBW ) fluid needs: 1 ml/kcal or per MD Nutrition Intervention Change Diet Order: Continue TF Nutrition Support: Nepro at 45 ml/hr with a free water flush of 300 ml q4h for hypernatremia, resume flush of 200 ml q4h once hypernatremia resolved Kcal 1,944 Protein (gm) 87 Fluid (mL) 785 Goal #1 Tolerate TF Goal #2 Meet at least 75% of kcal needs via TF as best as possible Anticipated Discharge Needs: unable to determine at this time Follow-Up By: 10/27/20 Additional Comments F/U TF tolerance, renal related labs <DAVID TORRES R - Last Filed: 10/25/20 16:11> Assessment and Plan Assessment and plan: I saw and evaluated the patient. I agree with the findings and the plan of care as documented in the Nurse Practitioner's~note, Hospitalist Physical - Constitutional Vitals: Temp Pulse Resp BP Pulse Ox 98.9 F 69 16 148/81 99 10/25/20 12:00 10/25/20 15:00 10/25/20 15:00 10/25/20 15:00 10/25/20 15:00 HEART Score - HEART Score Troponin: Troponin T 0.125 ng/mL (0.00-0.029) H* D 10/12/20 04:00 Results - Labs CBC & Chem 7: 10/25/20 08:55 10/25/20 08:55 Labs: Laboratory Last Values WBC 14.3 K/mm3 (4.5-11.0) H 10/25/20 08:55 RBC 3.57 M/mm3 (3.65-5.03) L 10/25/20 08:55 Hgb 10.3 gm/dl (11.8-15.2) L 10/25/20 08:55 Hct 31.6 % (35.5-45.6) L 10/25/20 08:55 MCV 88 fl (84-94) 10/25/20 08:55 MCH 29 pg (28-32) 10/25/20 08:55 MCHC 33 % (32-34) 10/25/20 08:55 RDW 14.8 % (13.2-15.2) 10/25/20 08:55 Plt Count 339 K/mm3 (140-440) 10/25/20 08:55 Lymph % (Auto) 4.2 % (13.4-35.0) L 10/19/20 04:55 [place] % (Auto) 11.9 % (0.0-7.3) H 10/19/20 04:55 Eos % (Auto) 1.6 % (0.0-4.3) 10/19/20 04:55 Baso % (Auto) 0.3 % (0.0-1.8) 10/19/20 04:55 Lymph # (Auto) 0.6 K/mm3 (1.2-5.4) L 10/19/20 04:55 [place] # (Auto) 1.8 K/mm3 (0.0-0.8) H 10/19/20 04:55 Eos # (Auto) 0.2 K/mm3 (0.0-0.4) 10/19/20 04:55 Baso # (Auto) 0.1 K/mm3 (0.0-0.1) 10/19/20 04:55 Add Manual Diff Complete 10/10/20 18:18 Total Counted 100 10/10/20 18:18 Seg Neutrophils % 82.0 % (40.0-70.0) H 10/19/20 04:55 Seg Neuts % (Manual) 60.0 % (40.0-70.0) 10/10/20 18:18 Band Neutrophils % 27.0 % 10/10/20 18:18 Lymphocytes % (Manual) 4.0 % (13.4-35.0) L 10/10/20 18:18 Monocytes % (Manual) 9.0 % (0.0-7.3) H 10/10/20 18:18 Eosinophils % (Manual) 4.0 % (0.0-4.3) 10/10/20 10:48 Metamyelocytes % 1.0 % 10/10/20 10:48 Nucleated RBC % Not Reportable 10/10/20 18:18 Seg Neutrophils # 12.4 K/mm3 (1.8-7.7) H 10/19/20 04:55 Seg Neutrophils # Man 13.8 K/mm3 (1.8-7.7) H 10/10/20 18:18 Band Neutrophils # 6.2 K/mm3 10/10/20 18:18 Lymphocytes # (Manual) 0.9 K/mm3 (1.2-5.4) L 10/10/20 18:18 Abs React Lymphs (Man) 0.0 K/mm3 10/10/20 18:18 Monocytes # (Manual) 2.1 K/mm3 (0.0-0.8) H 10/10/20 18:18 Eosinophils # (Manual) 0.0 K/mm3 (0.0-0.4) 10/10/20 18:18 Basophils # (Manual) 0.0 K/mm3 (0.0-0.1) 10/10/20 18:18 Metamyelocytes # 0.0 K/mm3 10/10/20 18:18 Myelocytes # 0.0 K/mm3 10/10/20 18:18 Promyelocytes # 0.0 K/mm3 10/10/20 18:18 Blast Cells # 0.0 K/mm3 10/10/20 18:18 WBC Morphology Not Reportable 10/10/20 18:18 Hypersegmented Neuts Not Reportable 10/10/20 18:18 Hyposegmented Neuts Not Reportable 10/10/20 18:18 Hypogranular Neuts Not Reportable 10/10/20 18:18 Smudge Cells Not Reportable 10/10/20 18:18 Toxic Granulation Not Reportable 10/10/20 18:18 Toxic Vacuolation Not Reportable 10/10/20 18:18 Dohle Bodies Not Reportable 10/10/20 18:18 Pelger-Huet Anomaly Not Reportable 10/10/20 18:18 Dionicio Rods Not Reportable 10/10/20 18:18 Platelet Estimate Consistent w auto 10/10/20 18:18 Clumped Platelets Not Reportable 10/10/20 18:18 Plt Clumps, EDTA Not Reportable 10/10/20 18:18 Large Platelets Rare 10/10/20 18:18 Giant Platelets Rare 10/10/20 18:18 Platelet Satelliting Not Reportable 10/10/20 18:18 Plt Morphology Comment Not Reportable 10/10/20 18:18 RBC Morphology Not Reportable 10/10/20 18:18 Dimorphic RBCs Not Reportable 10/10/20 18:18 Polychromasia Not Reportable 10/10/20 18:18 Hypochromasia Not Reportable 10/10/20 18:18 Poikilocytosis Not Reportable 10/10/20 18:18 Anisocytosis Not Reportable 10/10/20 18:18 Microcytosis Not Reportable 10/10/20 18:18 Macrocytosis Not Reportable 10/10/20 18:18 Spherocytes Not Reportable 10/10/20 18:18 Pappenheimer Bodies Not Reportable 10/10/20 18:18 Sickle Cells Not Reportable 10/10/20 18:18 Target Cells Not Reportable 10/10/20 18:18 Tear Drop Cells Not Reportable 10/10/20 18:18 Ovalocytes Not Reportable 10/10/20 18:18 Helmet Cells Not Reportable 10/10/20 18:18 [place] Bodies Not Reportable 10/10/20 18:18 Coila Rings Not Reportable 10/10/20 18:18 Adelfo Cells Not Reportable 10/10/20 18:18 Bite Cells Not Reportable 10/10/20 18:18 Crenated Cell Not Reportable 10/10/20 18:18 Elliptocytes Not Reportable 10/10/20 18:18 Acanthocytes (Spur) Not Reportable 10/10/20 18:18 Rouleaux Not Reportable 10/10/20 18:18 Hemoglobin C Crystals Not Reportable 10/10/20 18:18 Schistocytes Not Reportable 10/10/20 18:18 Malaria parasites Not Reportable 10/10/20 18:18 Mauricio Bodies Not Reportable 10/10/20 18:18 Hem Pathologist Commnt No 10/10/20 18:18 PT 13.8 Sec. (12.2-14.9) 10/10/20 18:18 INR 1.07 (0.87-1.13) 10/10/20 18:18 APTT 26.9 Sec. (24.2-36.6) 10/10/20 18:18 D-Dimer 679.5 ng/mlDDU (0-234) H 10/10/20 10:48 Heparin Anti-Xa Level 0.22 U.I./ml (0.3-0.7) L 10/11/20 08:35 ABG pH 7.334 (7.320-7.450) 10/23/20 05:11 POC ABG pCO2 63.6 mmHg (32.0-48.0) H 10/23/20 05:11 ABG pCO2 55.5 mm Hg 10/16/20 05:10 POC ABG pO2 81.2 mmHg (83-108) L 10/23/20 05:11 ABG pO2 104.5 mm Hg (80.0-90.0) H 10/16/20 05:10 POC ABG HCO3 33.1 10/23/20 05:11 ABG HCO3 35.1 mmol/L (20.0-26.0) H 10/16/20 05:10 ABG O2 Saturation 96.0 (0-100) 10/23/20 05:11 ABG O2 Content 10.8 (0.0-44) 10/16/20 05:10 POC ABG Base Excess 5.8 10/23/20 05:11 ABG Base Excess 9.5 mmol/L (-2.0-3.0) H 10/16/20 05:10 ABG Hemoglobin 10.6 (12.0-17.5) L 10/23/20 05:11 ABG Oxyhemoglobin 96.8 (94-98) 10/22/20 11:34 ABG Carboxyhemoglobin 1.9 % (0.0-5.0) 10/16/20 05:10 ABG Methemoglobin 0.1 (0.0-1.5) 10/22/20 11:34 ABG Sodium 143.6 mmol/L (136.0-145.0) 10/23/20 05:11 ABG Potassium 3.7 mmol/L (3.40-4.50) 10/23/20 05:11 ABG Chloride 109.0 mmol/L (98-107) H 10/23/20 05:11 ABG Glucose 149 mg/dL (65-95) H 10/23/20 05:11 VBG pH 6.870 (7.320-7.420) L* 10/10/20 10:48 Oxyhemoglobin 95.3 % (95.0-99.0) 10/16/20 05:10 Carboxyhemoglobin 0.7 (0.5-1.5) 10/22/20 11:34 FiO2 35 % 10/16/20 05:10 FiO2 % 30.0 10/23/20 05:11 Sodium 150 mmol/L (137-145) H 10/25/20 08:55 Potassium 3.7 mmol/L (3.6-5.0) 10/25/20 08:55 Chloride 108.3 mmol/L (98-107) H 10/25/20 08:55 Carbon Dioxide 32 mmol/L (22-30) H 10/25/20 08:55 Anion Gap 13 mmol/L 10/25/20 08:55 BUN 57 mg/dL (9-20) H 10/25/20 08:55 Creatinine 1.5 mg/dL (0.8-1.3) H 10/25/20 08:55 Estimated GFR 59 ml/min 10/25/20 08:55 BUN/Creatinine Ratio 38 % 10/25/20 08:55 Glucose 142 mg/dL (75-100) H 10/25/20 08:55 POC Glucose 157 mg/dL (70-105) H 10/25/20 11:08 Hemoglobin A1c 6.0 % (4-6) 10/11/20 02:00 Lactic Acid 1.10 mmol/L (0.7-2.0) 10/13/20 04:52 Calcium 9.9 mg/dL (8.4-10.2) 10/25/20 08:55 Phosphorus 5.20 mg/dL (2.5-4.5) H D 10/17/20 03:32 Magnesium 2.30 mg/dL (1.7-2.3) 10/17/20 03:32 Ferritin 81.4 ng/mL (30.0-300.0) 10/10/20 10:48 Total Bilirubin 1.70 mg/dL (0.1-1.2) H 10/18/20 03:27 AST 37 units/L (5-40) 10/18/20 03:27 ALT 32 units/L (7-56) 10/18/20 03:27 Alkaline Phosphatase 97 units/L (35-129) 10/18/20 03:27 Ammonia 214.0 umol/L (25-60) H 10/10/20 10:46 Lactate Dehydrogenase 386 units/L (91-180) H 10/10/20 10:48 Total Creatine Kinase 1192 units/L (55-170) H 10/10/20 18:18 CK-MB (CK-2) 21.7 ng/mL (0.0-4.0) H 10/10/20 18:18 CK-MB (CK-2) Rel Index 1.8 (0-4) 10/10/20 18:18 Troponin T 0.125 ng/mL (0.00-0.029) H* D 10/12/20 04:00 C-Reactive Protein 0.90 mg/dL (0.00-1.30) 10/10/20 10:48 NT-Pro-B Natriuret Pep 1187 pg/mL (0-900) H 10/10/20 10:46 Total Protein 6.3 g/dL (6.3-8.2) 10/18/20 03:27 Albumin 3.1 g/dL (3.9-5) L 10/18/20 03:27 Albumin/Globulin Ratio 1.0 % 10/18/20 03:27 Triglycerides 278 mg/dL (2-149) H 10/13/20 04:52 Cholesterol 138 mg/dL (50-199) 10/10/20 18:18 LDL Cholesterol Direct 76 mg/dL (50-130) 10/10/20 18:18 HDL Cholesterol 49 mg/dL (40-59) 10/10/20 18:18 Cholesterol/HDL Ratio 2.81 % 10/10/20 18:18 Procalcitonin 4.98 ng/mL (<0.15) 10/15/20 04:12 TSH 6.260 mlU/mL (0.270-4.200) H 10/10/20 10:46 Arterial Blood Glucose 149 mg/dL (65-95) H 10/23/20 05:11 Arterial Blood Ionized Calcium 5.2 mg/dL (4.6-5.3) 10/23/20 05:11 Urine Color Angelica (Yellow) 10/18/20 Unknown Urine Turbidity Cloudy (Clear) 10/18/20 Unknown Urine pH 5.0 (5.0-7.0) 10/18/20 Unknown Ur Specific [place] 1.017 (1.003-1.030) 10/18/20 Unknown Urine Protein 100 mg/dl mg/dL (Negative) 10/18/20 Unknown Urine Glucose (UA) Neg mg/dL (Negative) 10/18/20 Unknown Urine Ketones Neg mg/dL (Negative) 10/18/20 Unknown Urine Blood Lg (Negative) 10/18/20 Unknown Urine Nitrite Neg (Negative) 10/18/20 Unknown Urine Bilirubin Neg (Negative) 10/18/20 Unknown Urine Urobilinogen 4.0 mg/dL (<2.0) 10/18/20 Unknown Ur Leukocyte Esterase Neg (Negative) 10/18/20 Unknown Urine WBC (Auto) 115.0 /HPF (0.0-6.0) H 10/18/20 Unknown Urine RBC (Auto) 98.0 /HPF (0.0-6.0) 10/18/20 Unknown U Epithel Cells (Auto) 2.0 /HPF (0-13.0) 10/18/20 Unknown Urine WBC Clumps 3+ /HPF 10/18/20 Unknown Urine Mucus Few /HPF 10/11/20 13:30 Urine Eosinophils None seen (None Seen) 10/11/20 13:30 Urine Creatinine 93.7 mg/dL (0.1-20.0) H 10/19/20 13:14 Urine Sodium 25 mmol/L 10/19/20 13:14 Urine Urea Nitrogen 845 10/19/20 13:14 Nasal Screen MRSA (PCR) Positive (Negative) 10/20/20 13:30 Random Vancomycin 5.8 ug/mL (0-40.0) 10/21/20 06:30 Urine Opiates Screen Negative 10/10/20 10:50 Urine Methadone Screen Negative 10/10/20 10:50 Ur Barbiturates Screen Negative 10/10/20 10:50 Ur Phencyclidine Scrn Negative 10/10/20 10:50 Ur Amphetamines Screen Negative 10/10/20 10:50 U Benzodiazepines Scrn Negative 10/10/20 10:50 Urine Cocaine Screen Negative 10/10/20 10:50 U Marijuana (THC) Screen Positive 10/10/20 10:50 Drugs of Abuse Note Disclamer 10/10/20 10:50 Plasma/Serum Alcohol < 0.01 % (0-0.07) 10/10/20 10:48 Coronavirus (PCR) Negative (Negative) 10/11/20 Unknown Blood Type AB POSITIVE 10/10/20 10:48 Antibody Screen Negative 10/10/20 10:48 [place]/IV: Voiding Method Incontinent Active Medications - Current Medications Current Medications: Generic Name Dose Route Start Last Admin Trade Name Freq PRN Reason Stop Dose Admin Acetaminophen 650 mg 10/10/20 21:51 10/20/20 09:11 Acetaminophen 325 Mg Tab PO 650 mg Q4H PRN Administration Pain MILD(1-3)/Fever >100.5/SALVADOR Acetaminophen 650 mg 10/11/20 11:24 10/17/20 17:16 Acetaminophen 650 Mg Rect Supp MI 650 mg Q6H PRN Administration Fever >101 Albuterol 2.5 mg 10/11/20 13:12 Albuterol 2.5 Mg/3 Ml Nebu IH Q6HRT PRN Shortness Of Breath Amlodipine Besylate 10 mg 10/25/20 13:00 10/25/20 13:30 Amlodipine 10 Mg Tab PO 10 mg QDAY PEPITO Administration Lipase/Protease/Amylase 1 each 10/10/20 22:18 Lipase 10,500/Protease 25,000/Amylase 43,750 (Units) Dr Santana FEEDTUBE PRN PRN For Clogged Feeding Tube Clonidine HCl 0.3 mg 10/14/20 15:00 10/21/20 14:05 Clonidine Tts 0.3 Mg/24 Hr Patch TD 0.3 mg Fr PEPITO Administration Docusate Sodium 100 mg 10/16/20 22:00 10/25/20 09:01 Docusate Sodium 100 Mg/10 Ml Oral Liqd PO 100 mg BID PEPITO Administration Fentanyl 50 mcg 10/16/20 14:10 10/23/20 10:53 Fentanyl 100 Mcg/2 Ml Inj IV 50 mcg Q10MIN PRN Administration ANALGESIA Fluticasone Propionate 50 mcg 10/18/20 14:00 10/25/20 09:02 Fluticasone Propionate Nasal [place] 16 Gm NS 50 mcg BID PEPITO Administration Glycopyrrolate 2 mg 10/19/20 14:00 10/25/20 13:32 Glycopyrrolate 1 Mg Tab PO 2 mg Q6H PEPITO Administration Heparin Sodium (Porcine) 5,000 unit 10/11/20 22:00 10/25/20 09:02 Heparin 5,000 Unit/1 Ml Vial SUB-Q 5,000 unit Q12HR PEPITO Administration Hydralazine HCl 5 mg 10/15/20 20:25 10/24/20 08:20 Hydralazine 20 Mg/1 Ml Inj IV 5 mg Q6H PRN Administration Hypertension Hydralazine HCl 100 mg 10/24/20 09:30 10/25/20 13:31 Hydralazine 25 Mg Tab PO 100 mg Q8HR PEPITO Administration Hydrophilic Ointment 1 applic 10/10/20 10:34 Lip Therapy Vaseline TP Q2HR PRN Dry Lips Levetiracetam 500 mg/ Dextrose 105 mls @ 400 mls/hr 10/13/20 18:00 10/25/20 05:17 IV 400 mls/hr Q12H PEPITO Administration Fentanyl Citrate 2,000 mcg in 100 mls @ 6.175 mls/hr 10/16/20 15:00 10/24/20 17:48 Fentanyl Drip Premix IV 0.5 mcg/kg/hr TITR PEPITO 3.088 mls/hr Titration Protocol 1 MCG/KG/HR Linezolid 600 mg in 300 mls @ 300 mls/hr 10/20/20 12:00 10/25/20 09:01 Zyvox 600mg/300ml IV 10/29/20 22:59 300 mls/hr Q12HR PEPITO Administration Protocol Lansoprazole 30 mg 10/24/20 10:00 10/25/20 09:02 Lansoprazole 30 Mg Solutab FEEDTUBE 30 mg BID PEPITO Administration Metoclopramide HCl 10 mg 10/10/20 21:51 Metoclopramide 10 Mg/2 Ml Inj IV Q6H PRN Nausea And Vomiting Metoprolol Tartrate 100 mg 10/21/20 14:00 10/25/20 13:31 Metoprolol Tartrate 50 Mg Tab PO 100 mg TID PEPIOT Administration Multi-Ingred Cream/Lotion/Oil/Oint 1 applic 10/10/20 10:34 Mineral Oil/Petrolatum, White Ophth Oint 3.5 Gm OU Q4HR PRN Dry Eye(s) Ondansetron HCl 4 mg 10/10/20 21:51 Ondansetron 4 Mg/2 Ml Inj IV Q3H PRN Nausea And Vomiting Polyethylene Glycol 17 gm 10/17/20 10:00 10/25/20 09:01 Polyethylene Glycol 3350 17 Gm Powder PO 17 gm QDAY PEPITO Administration Scopolamine 1 each 10/17/20 10:00 10/23/20 09:35 Scopolamine Transdermal Patch 72 Hr TD 1 each Q3D PEPITO Administration Simple Syrup 15 ml 10/10/20 22:18 Simple Syrup 15 Ml FEEDTUBE PRN PRN Hypoglycemia Simple Syrup 30 ml 10/10/20 22:18 Simple Syrup 15 Ml FEEDTUBE PRN PRN Hypoglycemia Sodium Bicarbonate 325 mg 10/10/20 22:18 Sodium Bicarbonate 325 Mg Tab FEEDTUBE PRN PRN For Clogged Feeding Tube Sodium Chloride 10 ml 10/10/20 22:00 10/25/20 09:01 Sodium Chloride 0.9% 10 Ml Flush Syringe IV 10 ml BID PEPITO Administration Sodium Chloride 10 ml 10/10/20 21:51 10/21/20 09:56 Sodium Chloride 0.9% 10 Ml Flush Syringe IV 10 ml PRN PRN Administration LINE FLUSH Nutrition/Malnutrition Assess - Dietary Evaluation Nutrition/Malnutrition Findings: Nutrition Notes Start: 10/11/20 08:38 Freq: Status: Active Protocol: Document 10/25/20 13:13 CW (Rec: 10/25/20 13:28 CW [id number]) Nutrition Notes Initial or Follow up Reassessment Current Diagnosis Acute Kidney Injury,Sepsis, Hypertension,Heart Failure, Respiratory Failure Other Pertinent Diagnosis GIB, pneu, MRSA NM, pulmonary edema Current Diet TF Nepro at 45 ml/hr Labs/Tests Na 150 BUN 57 Cr 1.5 BG 142 Pertinent Medications Miralax Colace Height 6 ft Weight 126.8 kg [place] Body Weight (kg) 80.90 BMI 37.9 Weight change and time frame Weight loss noted, will monitor Weight Status Morbidly Obese Subjective/Other Information F/U for TF tolerance. Pt remains mechanical vented. TF running at goal and is well tolerated. Na elevated, recommend increasing flush. Will await changing TF regimen to better neat protein needs once renal functioning further improves. Percent of energy/protein needs met: 100%/54% Burn Absent Trauma Absent Difficulty In Swallowing Current % PO Negligible Minimum of two criteria No Fluid Accumulation Mild (non-severe) #1 Nutrition Diagnosis Inadequate oral intake Diagnosis Progress(for reassessment Continues documentation) Is patient on ventilator? Yes Is Patient Ambulatory and/or Out of Bed No REE-([place]-confined to bed) 2584.764 Kcal/Kg value to use for calculation 14 Approximate Energy Requirements Using 1775 kcal/Kg Calculation Used for Recommendations Kcal/kg Additional Notes protein needs: >162g (>2 kgIBW ) fluid needs: 1 ml/kcal or per MD Nutrition Intervention Change Diet Order: Continue TF Nutrition Support: Nepro at 45 ml/hr with a free water flush of 300 ml q4h for hypernatremia, resume flush of 200 ml q4h once hypernatremia resolved Kcal 1,944 Protein (gm) 87 Fluid (mL) 785 Goal #1 Tolerate TF Goal #2 Meet at least 75% of kcal needs via TF as best as possible Anticipated Discharge Needs: unable to determine at this time Follow-Up By: 10/27/20 Additional Comments F/U TF tolerance, renal related labs
--- NOTE | 2020-10-25 14:15 | Progress Note ---
Assessment and Plan SARS CoV2 PCR: negative. 10/10/2020 blood culture: No growth 10/10/2020 ET aspirate culture: Usual respiratory antonio 10/11/2020 urine culture: no growth 10/18/2020 blood culture: No growth today 10/18/2020 tracheal aspirate date: MRSA 10/20/2020 right nare MRSA A/P: 55-year-old male with hypertension, asthma, obesity came into the emergency room after receiving the Covid vaccine and passing out in the car at the emergency room bay. Patient was found to be unresponsive with no pulse, ACLS was initiated: #Sepsis, likely secondary to pneumonia. COVID negative. No fever for 48 hours, leukocytosis is downtrending, noted right nostril copious purulunce on 10/18-10/20 now resolved. ?sinusitis +/- UTI +/-MRSA pneumonia. #Right-sided pneumonia: Possible aspiration during ACLS. Procalcitonin low. Chest x-ray with persistent lung opacities. Tracheal aspirate now with MRSA. Patient with persistent fever. Completed 9 days of cefepime. #Presumed right sided sinusitis: culture +MRSA, left NGT removed #Acute hypoxic respiratory failure: On mechanical ventilation. #MOE: Renally dose antibiotics. Worsening. Renal on board. #Elevated LFTs: Likely from sepsis #Urine tox screen positive for THC #Acute encephalopathy: neurology on board, evaluation in process. #UTI: Urine culture no growth. Repeat UA with worsening pyuria. Completed 9 days of cefepime. #Anoxic brain injury Recs: -Continue linezolid 600 g IV twice a day total 10 days D6 of 10 -monitor fever/leukocytosis, improving Patient with anoxic brain injury, poor prognosis. Kelin Baumann MD [facility] O: [phone] F: [phone] Subjective Date of service: 10/25/20 Principal diagnosis: Cardiac arrest; Septic Shock; Ac. hypoxemic & hypercapnic resp failure; MOE Interval history: Afebrile, white count 14.3. Cultures with MRSA. Imaging personally reviewed: Brain MRI: Anoxic brain injury. Objective - Exam Narrative Exam: General appearance: Open eyes, intubated Eyes: anicteric sclerae, moist conjunctivae; no lid-lag; PERRLA HENT: Normocephalic, Atraumatic; normal external ears, oropharynx endotracheal tube in place Neck: supple, tracheal midline, no JVD Lungs: Bilateral rhonchi CV: RRR no murmur Abdomen: Soft, nontender Extremities: no edema, no cyanosis Skin: No rash. Psych: No agitated Neuro: Alert does not follow commands - Constitutional Vitals: Vital Signs Temp Pulse Resp BP Pulse Ox 98.9 F 73 20 173/100 99 10/25/20 12:00 10/25/20 14:00 10/25/20 14:00 10/25/20 14:00 10/25/20 14:00 Temperature -Last 24 Hours Temperature 98.9 F Temperature 98.7 F Temperature 99.4 F Temperature 99 F Temperature 98.3 F Temperature 98.1 F Temperature 98 F - Labs CBC & Chem 7: 10/25/20 08:55 10/25/20 08:55 Labs: Abnormal lab results 10/24/20 10/24/20 10/24/20 Range/Units 12:09 18:09 23:39 WBC (4.5-11.0) K/mm3 RBC (3.65-5.03) M/mm3 Hgb (11.8-15.2) gm/dl Hct (35.5-45.6) % Sodium (137-145) mmol/L Chloride (98-107) mmol/L Carbon Dioxide (22-30) mmol/L BUN (9-20) mg/dL Creatinine (0.8-1.3) mg/dL Glucose (75-100) mg/dL POC Glucose 154 H 132 H 131 H (70-105) mg/dL 10/25/20 10/25/20 10/25/20 Range/Units 05:29 08:55 08:55 WBC 14.3 H (4.5-11.0) K/mm3 RBC 3.57 L (3.65-5.03) M/mm3 Hgb 10.3 L (11.8-15.2) gm/dl Hct 31.6 L (35.5-45.6) % Sodium 150 H (137-145) mmol/L Chloride 108.3 H (98-107) mmol/L Carbon Dioxide 32 H (22-30) mmol/L BUN 57 H (9-20) mg/dL Creatinine 1.5 H (0.8-1.3) mg/dL Glucose 142 H (75-100) mg/dL POC Glucose 142 H (70-105) mg/dL 10/25/20 Range/Units 11:08 WBC (4.5-11.0) K/mm3 RBC (3.65-5.03) M/mm3 Hgb (11.8-15.2) gm/dl Hct (35.5-45.6) % Sodium (137-145) mmol/L Chloride (98-107) mmol/L Carbon Dioxide (22-30) mmol/L BUN (9-20) mg/dL Creatinine (0.8-1.3) mg/dL Glucose (75-100) mg/dL POC Glucose 157 H (70-105) mg/dL
[2020-10-25] MEDS: fentaNYL DRIP Premix 2,000 MCG/100 ML BAG IV SCH (18:08)
[2020-10-26] MEDS: GLYCOPYRROLATE 1 MG TAB PO SCH ×3 (01:47→13:40)
[2020-10-26] MEDS: hydrALAZINE 25 MG TAB PO SCH ×3 (05:38→21:50)
[2020-10-26] MEDS: levETIRAcetam 500 MG in DEXTROSE 5% IN WATER 100 ML IV SCH ×2 (05:38→18:18)
[2020-10-26 08:07] LABS: Hemoglobin 9.8 gm/dl (11.8-15.2); Mean Corpuscular HGB Conc 33 % (32-34); Mean Corpuscular Volume 89 fl (84-94); Platelet Count 344 K/mm3 (140-440); Red Blood Count 3.37 M/mm3 (3.65-5.03)
[2020-10-26] MEDS: METOPROLOL TARTRATE 50 MG TAB PO SCH ×2 (08:17→13:40)
[2020-10-26 08:27] LABS: BUN/Creatinine Ratio 35; Blood Urea Nitrogen 49 mg/dL (9-20); Calcium 9.7 mg/dL (8.4-10.2); Hemolysis Index 4
[2020-10-26] MEDS: DOCUSATE SODIUM 100 MG/10 ML ORAL LIQD PO SCH ×2 (09:57→21:50)
[2020-10-26] MEDS: POLYETHYLENE GLYCOL 3350 17 GM POWDER PO SCH (09:57)
[2020-10-26] MEDS: LANSOPRAZOLE 30 MG SOLUTAB FEEDTUBE SCH ×2 (09:57→21:50)
[2020-10-26] MEDS: HEPARIN 5,000 UNIT/1 ML VIAL SUB-Q SCH ×2 (09:58→21:52)
[2020-10-26] MEDS: LINEZOLID 600 MG/300 ML BAG IV SCH ×2 (09:58→21:51)
--- NOTE | 2020-10-26 09:59 | Progress Note ---
Assessment and Plan 1. Acute kidney injury: Vasomotor MOE in the setting of Cardiac arrest and shock. Renal US negative for hydro. Monitor renal function. BUN and Creatinine level improving. Avoid nephrotoxic agents. Meds dosage based on GFR. 2. FEN: Volume overload, improved, monitor. Hypernatremia, monitor. On Tube feeding and water flushes. Monitor lytes and volume status. 3. Acute hypoxic respiratory failure, POA: 2/2 PNA and CHF. COVID test negative. Intubated on vent. Trach and Peg planned. 4. Sepsis, POA: 2/2 PNA. Abx. 5. NSTEMI type II: Post cardiac arrest EKG showed no acute ischemic changes. Followed by Cards. 6. Acute CHF: Echo showed Normal EF and mild DD. 7. S/p Cardiac arrest. 8. A.fib / A.flutter: Metoprolol. 9. Anoxic encephalopathy: Seen by Neuro. 10. GI bleed: Seen by GI. 11. Elevated Transaminases: Improved. 12. HTN: Monitor. Adjust meds as needed. Subjective: Patient was seen and examined at the bedside. Objective: General appearance: well-developed, appears stated age, intubated, on vent HEENT: ATNC, pupils equal Neck: trachea midline Respiratory: ctab Heart: regular, S1S2, no murmur Gastrointestinal: soft, normoactive bowel sounds, not tender Integumentary: no rash, warm and dry Ext: trace extremity edema Neurologic: not responding Musculoskeletal: no obvious deformity Subjective Date of service: 10/26/20 Principal diagnosis: Cardiac arrest; Septic Shock; Ac. hypoxemic & hypercapnic resp failure; MOE Objective - Vital Signs Vital signs: Vital Signs - 12hr 10/25/20 10/25/20 10/25/20 22:00 22:14 22:30 Temperature Pulse Rate 70 69 71 Pulse Rate [ From Monitor] Respiratory 18 20 19 Rate Blood Pressure 150/88 150/88 153/84 O2 Sat by Pulse 99 100 99 Oximetry 10/25/20 10/25/20 10/25/20 23:00 23:15 23:30 Temperature Pulse Rate 72 73 74 Pulse Rate [ From Monitor] Respiratory 17 4 L 19 Rate Blood Pressure 142/77 153/84 144/80 O2 Sat by Pulse 98 99 98 Oximetry 10/26/20 10/26/20 10/26/20 00:00 00:30 01:00 Temperature 100.3 F H Pulse Rate 73 72 75 Pulse Rate [ 74 From Monitor] Respiratory 18 17 19 Rate Blood Pressure 161/98 146/75 123/62 O2 Sat by Pulse 99 99 97 Oximetry 10/26/20 10/26/20 10/26/20 01:30 02:00 02:30 Temperature Pulse Rate 71 80 77 Pulse Rate [ From Monitor] Respiratory 17 17 19 Rate Blood Pressure 149/78 149/78 157/85 O2 Sat by Pulse 99 100 99 Oximetry 10/26/20 10/26/20 10/26/20 03:00 03:20 03:23 Temperature 100.6 F H Pulse Rate 76 77 Pulse Rate [ From Monitor] Respiratory 17 0 L Rate Blood Pressure 155/85 161/78 O2 Sat by Pulse 100 99 Oximetry 10/26/20 10/26/20 10/26/20 03:30 04:00 04:30 Temperature Pulse Rate 77 80 75 Pulse Rate [ 77 From Monitor] Respiratory 18 16 16 Rate Blood Pressure 169/89 139/85 149/79 O2 Sat by Pulse 99 96 98 Oximetry 10/26/20 10/26/20 10/26/20 05:00 05:30 05:38 Temperature Pulse Rate 76 75 75 Pulse Rate [ From Monitor] Respiratory 18 14 Rate Blood Pressure 175/98 157/81 157/81 O2 Sat by Pulse 99 96 Oximetry 10/26/20 10/26/20 10/26/20 06:00 06:30 07:00 Temperature Pulse Rate 76 75 76 Pulse Rate [ From Monitor] Respiratory 14 14 14 Rate Blood Pressure 173/84 119/57 119/57 O2 Sat by Pulse 100 99 98 Oximetry 10/26/20 10/26/20 10/26/20 07:30 07:55 08:00 Temperature 98.9 F Pulse Rate 75 73 Pulse Rate [ From Monitor] Respiratory 15 16 Rate Blood Pressure 118/60 118/60 O2 Sat by Pulse 98 97 Oximetry 10/26/20 10/26/20 10/26/20 08:01 08:17 08:31 Temperature Pulse Rate 71 78 80 Pulse Rate [ From Monitor] Respiratory 13 17 Rate Blood Pressure 194/101 194/101 172/96 O2 Sat by Pulse 100 99 Oximetry 10/26/20 10/26/20 09:01 09:30 Temperature Pulse Rate 68 65 Pulse Rate [ From Monitor] Respiratory 13 13 Rate Blood Pressure 134/77 115/62 O2 Sat by Pulse 99 99 Oximetry - Lab 10/26/20 07:38 10/26/20 07:38 Most recent lab results ABG pH 7.424 (7.320-7.450) 10/25/20 18:10 ABG pCO2 55.5 mm Hg 10/16/20 05:10 ABG pO2 104.5 mm Hg (80.0-90.0) H 10/16/20 05:10 ABG HCO3 35.1 mmol/L (20.0-26.0) H 10/16/20 05:10 ABG O2 Saturation 97.4 (0-100) 10/25/20 18:10 Calcium 9.7 mg/dL (8.4-10.2) 10/26/20 07:38 Phosphorus 5.20 mg/dL (2.5-4.5) H D 10/17/20 03:32 Magnesium 2.30 mg/dL (1.7-2.3) 10/17/20 03:32 Urine Creatinine 93.7 mg/dL (0.1-20.0) H 10/19/20 13:14 Urine Sodium 25 mmol/L 10/19/20 13:14 Medications & Allergies - Medications Allergies/Adverse Reactions: Allergies No Known Allergies Allergy (Unverified 07/06/13 15:19) Home Medications: Home Medications Medication Instructions Recorded Confirmed Last Taken Type Colchicine [Colcrys] QDAY 10/21/20 Unknown History Eplerenone [Inspra] 50 mg PO 10/21/20 Unknown History HYDROcodone/APAP 5-325 [[place] 1 each PO Q8HR PRN 10/21/20 10/21/20 Unknown History 5/325] Leflunomide [Arava] 20 mg PO QDAY 10/21/20 10/21/20 3 Weeks Ago History ~09/30/20 20 mg Rosuvastatin (Nf) [Crestor] 20 mg PO QHS 10/21/20 10/21/20 3 Weeks Ago History ~09/30/20 20 mg Torsemide [Demadex] 20 mg PO 10/21/20 Unknown History allopurinoL [Zyloprim] QDAY 10/21/20 Unknown History amLODIPine 5 mg PO BID 10/21/20 10/21/20 3 Weeks Ago History ~09/30/20 5 mg carvediloL [Coreg] 25 mg PO QDAY 10/21/20 10/21/20 3 Weeks Ago History ~09/30/20 25 mg metFORMIN [Glucophage] 500 mg PO QDAY 10/21/20 10/21/20 Unknown History Active Medications: Generic Name Dose Route Start Last Admin Trade Name Freq PRN Reason Stop Dose Admin Acetaminophen 650 mg 10/10/20 21:51 10/20/20 09:11 Acetaminophen 325 Mg Tab PO 650 mg Q4H PRN Administration Pain MILD(1-3)/Fever >100.5/SALVADOR Acetaminophen 650 mg 10/11/20 11:24 10/17/20 17:16 Acetaminophen 650 Mg Rect Supp [place] 650 mg Q6H PRN Administration Fever >101 Albuterol 2.5 mg 10/11/20 13:12 Albuterol 2.5 Mg/3 Ml Nebu IH Q6HRT PRN Shortness Of Breath Amlodipine Besylate 10 mg 10/25/20 13:00 10/25/20 13:30 Amlodipine 10 Mg Tab PO 10 mg QDAY PEPITO Administration Lipase/Protease/Amylase 1 each 10/10/20 22:18 Lipase 10,500/Protease 25,000/Amylase 43,750 (Units) Dr Santana FEEDTUBE PRN PRN For Clogged Feeding Tube Clonidine HCl 0.3 mg 10/14/20 15:00 10/21/20 14:05 Clonidine Tts 0.3 Mg/24 Hr Patch TD 0.3 mg Fr PEPITO Administration Docusate Sodium 100 mg 10/16/20 22:00 10/25/20 21:32 Docusate Sodium 100 Mg/10 Ml Oral Liqd PO 100 mg BID PEPITO Administration Fentanyl 50 mcg 10/16/20 14:10 10/23/20 10:53 Fentanyl 100 Mcg/2 Ml Inj IV 50 mcg Q10MIN PRN Administration ANALGESIA Fluticasone Propionate 50 mcg 10/18/20 14:00 10/25/20 21:33 Fluticasone Propionate Nasal [place] 16 Gm NS 50 mcg BID PEPITO Administration Glycopyrrolate 2 mg 10/19/20 14:00 10/26/20 08:19 Glycopyrrolate 1 Mg Tab PO 2 mg Q6H PEPITO Administration Heparin Sodium (Porcine) 5,000 unit 10/11/20 22:00 10/25/20 21:32 Heparin 5,000 Unit/1 Ml Vial SUB-Q 5,000 unit Q12HR PEPITO Administration Hydralazine HCl 5 mg 10/15/20 20:25 10/24/20 08:20 Hydralazine 20 Mg/1 Ml Inj IV 5 mg Q6H PRN Administration Hypertension Hydralazine HCl 100 mg 10/24/20 09:30 10/26/20 05:38 Hydralazine 25 Mg Tab PO 100 mg Q8HR PEPITO Administration Hydrophilic Ointment 1 applic 10/10/20 10:34 Lip Therapy Vaseline TP Q2HR PRN Dry Lips Levetiracetam 500 mg/ Dextrose 105 mls @ 400 mls/hr 10/13/20 18:00 10/26/20 05:38 IV 400 mls/hr Q12H PEPITO Administration Fentanyl Citrate 2,000 mcg in 100 mls @ 6.175 mls/hr 10/16/20 15:00 10/25/20 18:08 Fentanyl Drip Premix IV 0.5 mcg/kg/hr TITR PEP[facility]O 3.088 mls/hr Administration Protocol 1 MCG/KG/HR Linezolid 600 mg in 300 mls @ 300 mls/hr 10/20/20 12:00 10/25/20 21:32 Zyvox 600mg/300ml IV 10/29/20 22:59 300 mls/hr Q12HR PEPITO Administration Protocol Lansoprazole 30 mg 10/24/20 10:00 10/25/20 21:32 Lansoprazole 30 Mg Solutab FEEDTUBE 30 mg BID PEPITO Administration Metoclopramide HCl 10 mg 10/10/20 21:51 Metoclopramide 10 Mg/2 Ml Inj IV Q6H PRN Nausea And Vomiting Metoprolol Tartrate 100 mg 10/21/20 14:00 10/26/20 08:17 Metoprolol Tartrate 50 Mg Tab PO 100 mg TID PEPITO Administration Multi-Ingred Cream/Lotion/Oil/Oint 1 applic 10/10/20 10:34 Mineral Oil/Petrolatum, White Ophth Oint 3.5 Gm OU Q4HR PRN Dry Eye(s) Ondansetron HCl 4 mg 10/10/20 21:51 Ondansetron 4 Mg/2 Ml Inj IV Q3H PRN Nausea And Vomiting Polyethylene Glycol 17 gm 10/17/20 10:00 10/25/20 09:01 Polyethylene Glycol 3350 17 Gm Powder PO 17 gm QDAY PEPITO Administration Scopolamine 1 each 10/17/20 10:00 10/23/20 09:35 Scopolamine Transdermal Patch 72 Hr TD 1 each Q3D PEPITO Administration Simple Syrup 15 ml 10/10/20 22:18 Simple Syrup 15 Ml FEEDTUBE PRN PRN Hypoglycemia Simple Syrup 30 ml 10/10/20 22:18 Simple Syrup 15 Ml FEEDTUBE PRN PRN Hypoglycemia Sodium Bicarbonate 325 mg 10/10/20 22:18 Sodium Bicarbonate 325 Mg Tab FEEDTUBE PRN PRN For Clogged Feeding Tube Sodium Chloride 10 ml 10/10/20 22:00 10/25/20 21:33 Sodium Chloride 0.9% 10 Ml Flush Syringe IV 10 ml BID PEPITO Administration Sodium Chloride 10 ml 10/10/20 21:51 10/21/20 09:56 Sodium Chloride 0.9% 10 Ml Flush Syringe IV 10 ml PRN PRN Administration LINE FLUSH
[2020-10-26] MEDS: SCOPOLAMINE TRANSDERMAL PATCH 72 HR TD SCH (10:03)
[2020-10-26] MEDS: amLODIPine 10 MG TAB PO SCH (10:05)
--- NOTE | 2020-10-26 10:12 | Progress Note ---
Assessment and Plan Pt remains intubated, intermittently sedated, intermittent blinking of eyes to painful stimulus (sternal rub) noted. Neurology f/u noted - pt with suspected anoxic brain injury. Brain MRI shows diffuse restricted diffusion and increased T2 signal in the cerebral cortex, findings can be seen in setting of anoxic brain injury and/or status epilepticus. Per primary team, pt is not tolerating weaning from ventilator. Recommend further discussion with pt's family per primary team regarding current assessment/plan and goals of care. Trach/PEG may be an appropriate option at this point. Spouse to visit patient at bedside on Saturday. Cont present cardiac management. No systemic AC at this time in regards to AFib/AFlutter given h/o GI bleeding while on heparin gtt. GI team is following. Renal indices are improving - follow nephrology recs. Overall guarded prognosis. Continue supportive measures. The patient has been seen in conjunction with Dr. Mercedes who agrees with the assessment and plan of care. - Patient Problems (1) AMS (altered mental status) Current Visit: Yes Status: Acute (2) Cardiopulmonary arrest with successful resuscitation Current Visit: Yes Status: Acute (3) Acute respiratory failure Current Visit: Yes Status: Acute Qualifiers: Respiratory failure complication: hypoxia and hypercapnia Qualified Code(s): J96.01 - Acute respiratory failure with hypoxia; J96.02 - Acute respiratory failure with hypercapnia (4) Bilateral pneumonia Current Visit: Yes Status: Acute (5) Sepsis with hypotension Current Visit: Yes Status: Acute (6) Person under investigation for COVID-19 Current Visit: Yes Status: Ruled-out (7) Seizure Current Visit: Yes Status: Suspected (8) NSTEMI (non-ST elevated myocardial infarction) Current Visit: Yes Status: Acute (9) MOE (acute kidney injury) Current Visit: Yes Status: Acute (10) GI bleed Current Visit: Yes Status: Acute (11) Acute heart failure with preserved ejection fraction (HFpEF) Current Visit: Yes Status: Acute (12) Hypernatremia Current Visit: Yes Status: Acute (13) Atrial fibrillation and flutter Current Visit: Yes Status: Acute (14) Anemia Current Visit: Yes Status: Acute Subjective Date of service: 10/26/20 Principal diagnosis: Cardiac arrest; Septic Shock; Ac. hypoxemic & hypercapnic resp failure; MOE Interval history: pt remains intubated, intermittently sedated, intermittent blinking of eyes to painful stimulus (sternal rub) noted. tele reviewed - in SR HR 60-70s. Objective Last Vital Signs Temp 98.9 F 10/26/20 08:00 Pulse 66 10/26/20 10:05 Resp 13 10/26/20 09:30 BP 121/70 10/26/20 10:05 Pulse Ox 99 10/26/20 09:30 - Physical Examination General: Other (intubated) HEENT: Positive: Normocephaly Neck: Positive: neck supple, trachea midline Cardiac: Positive: Reg Rate and Rhythm, S1/S2 Lungs: Positive: Decreased Breath Sounds, Oxygen, Ventilated Respirations Neuro: Positive: Other (intubated) Abdomen: Positive: Soft, Active Bowel Sounds Skin: Negative: Rash Extremities: Present: lower extr. pulses. Absent: edema - Labs and Meds CBC 10/26/20 Range/Units 07:38 WBC 13.5 H (4.5-11.0) K/mm3 RBC 3.37 L (3.65-5.03) M/mm3 Hgb 9.8 L (11.8-15.2) gm/dl Hct 30.0 L (35.5-45.6) % Plt Count 344 (140-440) K/mm3 Comprehensive Metabolic Panel 10/25/20 10/26/20 Range/Units 08:55 07:38 Sodium 150 H 149 H (137-145) mmol/L Potassium 3.7 3.7 (3.6-5.0) mmol/L Chloride 108.3 H 107.6 H (98-107) mmol/L Carbon Dioxide 32 H 34 H (22-30) mmol/L BUN 57 H 49 H (9-20) mg/dL Creatinine 1.5 H 1.4 H (0.8-1.3) mg/dL Glucose 142 H 137 H (75-100) mg/dL Calcium 9.9 9.7 (8.4-10.2) mg/dL - Imaging and Cardiology EKG: report reviewed, image reviewed Echo: report reviewed (10/10/2020 - mod LVH, EF 55-60%, mild diastolic dysfunction) - EKG Sinus rhythms and dysrhythmias: sinus rhythm Repolarization changes or abnormalities: ST suggestive of injury, Q-T interval prolongation - Allied health notes Allied health notes reviewed: nursing
[2020-10-26] MEDS: FLUTICASONE PROPIONATE NASAL SPRAY 16 GM NS SCH (10:15)
--- NOTE | 2020-10-26 10:31 | Consultation ---
History of Present Illness Consult date: 10/26/20 Chief complaint: Anoxic brain injury with respiratory failure - History of present illness History of present illness: 55 yo male with anoxic brain injury and respiratory failure. He is s/p a recent IN and has afib/flutter as well. Consulted for trach/peg. Past History Past Medical History: hypertension, other (See HPI.) Medications and Allergies Allergies Allergy/AdvReac Type Severity Reaction Status Date / Time No Known Allergies Allergy Unverified 07/06/13 15:19 Home Medications Medication Instructions Recorded Confirmed Last Taken Type Colchicine [Colcrys] QDAY 10/21/20 Unknown History Eplerenone [Inspra] 50 mg PO 10/21/20 Unknown History HYDROcodone/APAP 5-325 [[place] 1 each PO Q8HR PRN 10/21/20 10/21/20 Unknown History 5/325] Leflunomide [Arava] 20 mg PO QDAY 10/21/20 10/21/20 3 Weeks Ago History ~09/30/20 20 mg Rosuvastatin (Nf) [Crestor] 20 mg PO QHS 10/21/20 10/21/20 3 Weeks Ago History ~09/30/20 20 mg Torsemide [Demadex] 20 mg PO 10/21/20 Unknown History allopurinoL [Zyloprim] QDAY 10/21/20 Unknown History amLODIPine 5 mg PO BID 10/21/20 10/21/20 3 Weeks Ago History ~09/30/20 5 mg carvediloL [Coreg] 25 mg PO QDAY 10/21/20 10/21/20 3 Weeks Ago History ~09/30/20 25 mg metFORMIN [Glucophage] 500 mg PO QDAY 10/21/20 10/21/20 Unknown History Active Meds: Active Medications Acetaminophen (Acetaminophen 325 Mg Tab) 650 mg PO Q4H PRN PRN Reason: Pain MILD(1-3)/Fever >100.5/SALVADOR Last Admin: 10/20/20 09:11 Dose: 650 mg Documented by: Acetaminophen (Acetaminophen 650 Mg Rect Supp) 650 mg DC Q6H PRN PRN Reason: Fever >101 Last Admin: 10/17/20 17:16 Dose: 650 mg Documented by: Albuterol (Albuterol 2.5 Mg/3 Ml Nebu) 2.5 mg IH Q6HRT PRN PRN Reason: Shortness Of Breath Amlodipine Besylate (Amlodipine 10 Mg Tab) 10 mg PO QDAY [facility] Last Admin: 10/26/20 10:05 Dose: 10 mg Documented by: Lipase/Protease/Amylase (Lipase 10,500/Protease 25,000/Amylase 43,750 (Units) Dr Cap) 1 each FEEDTUBE PRN PRN PRN Reason: For Clogged Feeding Tube Clonidine HCl (Clonidine Tts 0.3 Mg/24 Hr Patch) 0.3 mg TD Fr [facility] Last Admin: 10/21/20 14:05 Dose: 0.3 mg Documented by: Docusate Sodium (Docusate Sodium 100 Mg/10 Ml Oral Liqd) 100 mg PO BID [facility] Last Admin: 10/26/20 09:57 Dose: 100 mg Documented by: Fentanyl (Fentanyl 100 Mcg/2 Ml Inj) 50 mcg IV Q10MIN PRN PRN Reason: ANALGESIA Last Admin: 10/23/20 10:53 Dose: 50 mcg Documented by: Fluticasone Propionate (Fluticasone Propionate Nasal [place] 16 Gm) 50 mcg NS BID [facility] Last Admin: 10/25/20 21:33 Dose: 50 mcg Documented by: Glycopyrrolate (Glycopyrrolate 1 Mg Tab) 2 mg PO Q6H [facility] Last Admin: 10/26/20 08:19 Dose: 2 mg Documented by: Heparin Sodium (Porcine) (Heparin 5,000 Unit/1 Ml Vial) 5,000 unit SUB-Q Q12HR [facility] Last Admin: 10/26/20 09:58 Dose: 5,000 unit Documented by: Hydralazine HCl (Hydralazine 20 Mg/1 Ml Inj) 5 mg IV Q6H PRN PRN Reason: Hypertension Last Admin: 10/24/20 08:20 Dose: 5 mg Documented by: Hydralazine HCl (Hydralazine 25 Mg Tab) 100 mg PO Q8HR [facility] Last Admin: 10/26/20 05:38 Dose: 100 mg Documented by: Hydrophilic Ointment (Lip Therapy Vaseline) 1 applic TP Q2HR PRN PRN Reason: Dry Lips Levetiracetam 500 mg/ Dextrose 105 mls @ 400 mls/hr IV Q12H [facility] Last Admin: 10/26/20 05:38 Dose: 400 mls/hr Documented by: Fentanyl Citrate (Fentanyl Drip Premix) 2,000 mcg in 100 mls @ 6.175 mls/hr IV TITR [facility]; Protocol Last Admin: 10/25/20 18:08 Dose: 0.5 mcg/kg/hr, 3.088 mls/hr Documented by: Linezolid (Zyvox 600mg/300ml) 600 mg in 300 mls @ 300 mls/hr IV Q12HR [facility]; Protocol Stop: 10/29/20 22:59 Last Admin: 10/26/20 09:58 Dose: 300 mls/hr Documented by: Lansoprazole (Lansoprazole 30 Mg Solutab) 30 mg FEEDTUBE BID [facility] Last Admin: 10/26/20 09:57 Dose: 30 mg Documented by: Metoclopramide HCl (Metoclopramide 10 Mg/2 Ml Inj) 10 mg IV Q6H PRN PRN Reason: Nausea And Vomiting Metoprolol Tartrate (Metoprolol Tartrate 50 Mg Tab) 100 mg PO TID [facility] Last Admin: 10/26/20 08:17 Dose: 100 mg Documented by: Multi-Ingred Cream/Lotion/Oil/Oint (Mineral Oil/Petrolatum, White Ophth Oint 3.5 Gm) 1 applic OU Q4HR PRN PRN Reason: Dry Eye(s) Ondansetron HCl (Ondansetron 4 Mg/2 Ml Inj) 4 mg IV Q3H PRN PRN Reason: Nausea And Vomiting Polyethylene Glycol (Polyethylene Glycol 3350 17 Gm Powder) 17 gm PO QDAY [facility] Last Admin: 10/26/20 09:57 Dose: 17 gm Documented by: Scopolamine (Scopolamine Transdermal Patch 72 Hr) 1 each TD Q3D [facility] Last Admin: 10/26/20 10:03 Dose: 1 each Documented by: Simple Syrup (Simple Syrup 15 Ml) 15 ml FEEDTUBE PRN PRN PRN Reason: Hypoglycemia Simple Syrup (Simple Syrup 15 Ml) 30 ml FEEDTUBE PRN PRN PRN Reason: Hypoglycemia Sodium Bicarbonate (Sodium Bicarbonate 325 Mg Tab) 325 mg FEEDTUBE PRN PRN PRN Reason: For Clogged Feeding Tube Sodium Chloride (Sodium Chloride 0.9% 10 Ml Flush Syringe) 10 ml IV BID [facility] Last Admin: 10/26/20 10:01 Dose: 10 ml Documented by: Sodium Chloride (Sodium Chloride 0.9% 10 Ml Flush Syringe) 10 ml IV PRN PRN PRN Reason: LINE FLUSH Last Admin: 10/21/20 09:56 Dose: 10 ml Documented by: Review of Systems ROS unobtainable: due to endotracheal tube Exam Vital Signs Pulse Resp BP 119 H 26 H 228/162 10/10/20 10:34 10/10/20 10:34 10/10/20 10:34 - General physical appearance Positive: well developed, well nourished, no distress - Eyes Positive: PERRL, normal occular movement - ENT Positive: normal pinna, normal nares, normal mucosa, no hearing loss, no congestion, other (ET tube in place. OG tube in place.) - Neck Positive: no masses, no bruits, trachea midline, no venous distension - Respiratory Positive: normal expansion, normal respiratory effort, clear to auscultation - Cardiovascular Rhythm: regular Heart Sounds: Present: S1 & S2. Absent: rub, click - Extremities Extremities: no ischemia, pulses symmetrical, No edema - Breasts Breasts: normal, no mass, no skin changes - Abdomen Abdomen: Present: soft, bowel sounds normal. Absent: tender, distended Hernia: none - Genitourinary Male Genitourinary: normal Female Genitourinary: normal - Integumentary no rash, no growths, no abnormal pigmentation - Neurologic Neurologic: alert and oriented to time, place and person, motor strength and sensation are grossly intact - Musculoskeletal normal gait, normal posture - Psychiatric Psychiatric: appropriate mood/affect, intact judgment & insight Results - Labs 10/26/20 07:38 10/26/20 07:38 Abnormal lab results 10/25/20 10/25/20 10/25/20 Range/Units 05:29 11:08 18:10 WBC (4.5-11.0) K/mm3 RBC (3.65-5.03) M/mm3 Hgb (11.8-15.2) gm/dl Hct (35.5-45.6) % POC ABG pCO2 52.3 H (32.0-48.0) mmHg ABG Hemoglobin 11.2 L (12.0-17.5) ABG Chloride 108.0 H (98-107) mmol/L ABG Glucose 167 H (65-95) mg/dL Sodium (137-145) mmol/L Chloride (98-107) mmol/L Carbon Dioxide (22-30) mmol/L BUN (9-20) mg/dL Creatinine (0.8-1.3) mg/dL Glucose (75-100) mg/dL POC Glucose 142 H 157 H (70-105) mg/dL Arterial Blood Glucose 167 H (65-95) mg/dL 10/25/20 10/26/20 10/26/20 Range/Units 18:20 00:20 06:08 WBC (4.5-11.0) K/mm3 RBC (3.65-5.03) M/mm3 Hgb (11.8-15.2) gm/dl Hct (35.5-45.6) % POC ABG pCO2 (32.0-48.0) mmHg ABG Hemoglobin (12.0-17.5) ABG Chloride (98-107) mmol/L ABG Glucose (65-95) mg/dL Sodium (137-145) mmol/L Chloride (98-107) mmol/L Carbon Dioxide (22-30) mmol/L BUN (9-20) mg/dL Creatinine (0.8-1.3) mg/dL Glucose (75-100) mg/dL POC Glucose 127 H 108 H 119 H (70-105) mg/dL Arterial Blood Glucose (65-95) mg/dL 10/26/20 10/26/20 Range/Units 07:38 07:38 WBC 13.5 H (4.5-11.0) K/mm3 RBC 3.37 L (3.65-5.03) M/mm3 Hgb 9.8 L (11.8-15.2) gm/dl Hct 30.0 L (35.5-45.6) % POC ABG pCO2 (32.0-48.0) mmHg ABG Hemoglobin (12.0-17.5) ABG Chloride (98-107) mmol/L ABG Glucose (65-95) mg/dL Sodium 149 H (137-145) mmol/L Chloride 107.6 H (98-107) mmol/L Carbon Dioxide 34 H (22-30) mmol/L BUN 49 H (9-20) mg/dL Creatinine 1.4 H (0.8-1.3) mg/dL Glucose 137 H (75-100) mg/dL POC Glucose (70-105) mg/dL Arterial Blood Glucose (65-95) mg/dL Diabetes panel 10/26/20 Range/Units 07:38 Sodium 149 H (137-145) mmol/L Potassium 3.7 (3.6-5.0) mmol/L Chloride 107.6 H (98-107) mmol/L Carbon Dioxide 34 H (22-30) mmol/L BUN 49 H (9-20) mg/dL Creatinine 1.4 H (0.8-1.3) mg/dL Glucose 137 H (75-100) mg/dL Calcium 9.7 (8.4-10.2) mg/dL Calcium panel 10/26/20 Range/Units 07:38 Calcium 9.7 (8.4-10.2) mg/dL Pituitary panel 10/26/20 Range/Units 07:38 Sodium 149 H (137-145) mmol/L Potassium 3.7 (3.6-5.0) mmol/L Chloride 107.6 H (98-107) mmol/L Carbon Dioxide 34 H (22-30) mmol/L BUN 49 H (9-20) mg/dL Creatinine 1.4 H (0.8-1.3) mg/dL Glucose 137 H (75-100) mg/dL Calcium 9.7 (8.4-10.2) mg/dL Adrenal panel 10/26/20 Range/Units 07:38 Sodium 149 H (137-145) mmol/L Potassium 3.7 (3.6-5.0) mmol/L Chloride 107.6 H (98-107) mmol/L Carbon Dioxide 34 H (22-30) mmol/L BUN 49 H (9-20) mg/dL Creatinine 1.4 H (0.8-1.3) mg/dL Glucose 137 H (75-100) mg/dL Calcium 9.7 (8.4-10.2) mg/dL Assessment and Plan - Patient Problems (1) Acute respiratory failure Current Visit: Yes Status: Acute Qualifiers: Respiratory failure complication: hypoxia and hypercapnia Qualified Code(s): J96.01 - Acute respiratory failure with hypoxia; J96.02 - Acute respiratory failure with hypercapnia Plan to address problem: 1) Pt will need a tracheostomy and PEG. 2) Cardiac clearance assessment before tracheostomy and PEG.
--- NOTE | 2020-10-26 13:48 | Progress Note ---
Assessment and Plan Cardiac arrest x3 with ROSC Severe septic and cardiogenic shock Acute respiratory failure with hypoxemia and hypercarbia Acute pulmonary edema MOE (acute kidney injury) Lactic acidosis, severe metabolic acidosis Bilateral pneumonia, aspiration pneumonia Elevated troponins (AMS remains rate limiting factor for safe extubation acutely; i have discussed care plan at length with his Nini today and will place a consult for a tracheostomy & PEG) - keep set rate at 12/min - Surgery evaluation ongoing for trach and PEG - continue contact precautions re: MRSA - complete Zyvox dosing - keep peep at 8 - continue care as below otherwise; - flonase nasal spray for sinus congestion / exudation - continue to hold on full anticoagulation re: negative Dopplers and clinical improvement in oxygenation - continue Clonidine 0.3 mg weekly patch - follow G.I. evaluation - de-escalate empiric anti-infective's per ID rec's (on Zyvox) - follow clinically re: fevers / WBC - Monitor hemodynamics closely - continue daily SAT's and SBT assessment as tolerated - wean supplemental oxygen for target O2 sat's > 92% acutely - VAP bundle addressed - continue lung protective strategies - bronchodilators with pulmonary hygiene per RT - wean per pulmonary driven protocols otherwise - Monitor urine output closely - bicarbonate infusion - avoid nephrotoxins, renally dose all medications - continue to avoid benzodiazepine's, reduce the possibility of delirium - continue Scopolamine for secretion control - continue wound care per RN/WCN - prn analgesia per CPOT score - Maintenance of sleep-wake cycle, avoid delirium - continue enteral nutritional support at goal rate as tolerated - G.I. & VTE prophylaxis - PT/OT/ROM exercises - continue mobility protocols for pressure ulcer prophylaxis - Monitor hemodynamics closely - continue other care per attending / other consultants - discharge planning ongoing concurrently .... Re-evaluate in am & prn CONDITION: CRITICAL PROGNOSIS: GUARDED CODE STATUS: FULL CODE The high probability of a clinically significant, sudden or life-threatening deterioration of the [respiratory, cardiovascular & neurologic] system(s) required my full and direct attention, intervention and personal management. The aggregate critical care time was [36] minutes without overlap. Time includes spent on; [x] Data Review and interpretation [x] Patient assessment and monitoring of vital signs [x] Documentation [x] Medication orders and management Subjective Date of service: 10/26/20 Principal diagnosis: Cardiac arrest; Septic Shock; Ac. hypoxemic & hypercapnic resp failure; MOE Interval history: Patient is seen today for: Cardiac arrest with ROSC; Severe septic and cardiogenic shock; Acute respiratory failure with hypoxemia and hypercarbia; Acute pulmonary edema; MOE; Lactic acidosis; severe metabolic acidosis; B ilateral pneumonia; aspiration pneumonia; Elevated troponins Seen and examined at bedside; 24hour events reviewed; nursing and respiratory care staff consulted; no adverse overnight events reported to me; resting peacefully in bed; AMS is persistent; weaning tenuously still but on PSV; no emesis or overt aspiration Objective Vital Signs - 12hr 10/26/20 10/26/20 10/26/20 02:00 02:30 03:00 Temperature Pulse Rate 80 77 76 Pulse Rate [ From Monitor] Respiratory 17 19 17 Rate Blood Pressure 149/78 157/85 155/85 O2 Sat by Pulse 100 99 100 Oximetry 10/26/20 10/26/20 10/26/20 03:20 03:23 03:30 Temperature 100.6 F H Pulse Rate 77 77 Pulse Rate [ From Monitor] Respiratory 0 L 18 Rate Blood Pressure 161/78 169/89 O2 Sat by Pulse 99 99 Oximetry 10/26/20 10/26/20 10/26/20 04:00 04:30 05:00 Temperature Pulse Rate 80 75 76 Pulse Rate [ 77 From Monitor] Respiratory 16 16 18 Rate Blood Pressure 139/85 149/79 175/98 O2 Sat by Pulse 96 98 99 Oximetry 10/26/20 10/26/20 10/26/20 05:30 05:38 06:00 Temperature Pulse Rate 75 75 76 Pulse Rate [ From Monitor] Respiratory 14 14 Rate Blood Pressure 157/81 157/81 173/84 O2 Sat by Pulse 96 100 Oximetry 10/26/20 10/26/20 10/26/20 06:30 07:00 07:30 Temperature Pulse Rate 75 76 75 Pulse Rate [ From Monitor] Respiratory 14 14 15 Rate Blood Pressure 119/57 119/57 118/60 O2 Sat by Pulse 99 98 98 Oximetry 10/26/20 10/26/20 10/26/20 07:55 08:00 08:01 Temperature 98.9 F Pulse Rate 73 77 71 Pulse Rate [ 77 From Monitor] Respiratory 16 14 13 Rate Blood Pressure 118/60 194/101 O2 Sat by Pulse 97 99 100 Oximetry 10/26/20 10/26/20 10/26/20 08:17 08:31 09:01 Temperature Pulse Rate 78 80 68 Pulse Rate [ From Monitor] Respiratory 17 13 Rate Blood Pressure 194/101 172/96 134/77 O2 Sat by Pulse 99 99 Oximetry 10/26/20 10/26/20 10/26/20 09:30 10:01 10:05 Temperature Pulse Rate 65 62 66 Pulse Rate [ From Monitor] Respiratory 13 14 Rate Blood Pressure 115/62 121/70 121/70 O2 Sat by Pulse 99 99 Oximetry 10/26/20 10/26/20 10/26/20 10:30 11:00 11:31 Temperature Pulse Rate 65 64 64 Pulse Rate [ From Monitor] Respiratory 13 17 15 Rate Blood Pressure 125/79 105/56 166/93 O2 Sat by Pulse 99 99 100 Oximetry 10/26/20 10/26/20 10/26/20 11:59 12:55 13:40 Temperature 98.3 F Pulse Rate 65 67 Pulse Rate [ From Monitor] Respiratory 16 Rate Blood Pressure 151/84 154/83 O2 Sat by Pulse 100 Oximetry Constitutional: appears uncomfortable, other (middle aged obese male with mildly increased respiratory efort at rest) Eyes: non-icteric ENT: oropharynx moist, oropharyngeal exudate pre, other (ETT 24 cm ANNIE) Neck: supple, no lymphadenopathy, no JVD Effort: mildly labored Ascultation: Bilateral: diminished breath sounds Percussion: Bilateral: not dull Cardiovascular: regular rate and rhythm, other (S1,S2) Gastrointestinal: normoactive bowel sounds, soft, non-tender, non-distended (protuberant) Integumentary: normal Extremities: no cyanosis, no edema, pulses normal, no ischemia or petechiae Neurologic: pupils equal and round, unable to assess Psychiatric: other (unable to assess re: AMS) CBC and BMP: 10/27/20 07:30 10/27/20 07:30 ABG, PT/INR, D-dimer: ABG ABG pH 7.424 (7.320-7.450) 10/25/20 18:10 POC ABG pCO2 52.3 mmHg (32.0-48.0) H 10/25/20 18:10 ABG pCO2 55.5 mm Hg 10/16/20 05:10 POC ABG pO2 97.1 mmHg (83-108) 10/25/20 18:10 ABG pO2 104.5 mm Hg (80.0-90.0) H 10/16/20 05:10 POC ABG HCO3 33.5 10/25/20 18:10 ABG O2 Saturation 97.4 (0-100) 10/25/20 18:10 PT/INR, D-dimer PT 13.8 Sec. (12.2-14.9) 10/10/20 18:18 INR 1.07 (0.87-1.13) 10/10/20 18:18 D-Dimer 679.5 ng/mlDDU (0-234) H 10/10/20 10:48 Abnormal lab findings: Abnormal Labs 10/10/20 10/10/20 10/10/20 10:46 10:46 10:46 WBC RBC Hgb Hct RDW Lymph % (Auto) [place] % (Auto) Lymph # (Auto) [place] # (Auto) Seg Neutrophils % Lymphocytes % (Manual) Monocytes % (Manual) Seg Neutrophils # Seg Neutrophils # Man Lymphocytes # (Manual) Monocytes # (Manual) D-Dimer Heparin Anti-Xa Level ABG pH POC ABG pCO2 POC ABG pO2 ABG pO2 ABG HCO3 ABG O2 Saturation ABG Base Excess ABG Hemoglobin ABG Oxyhemoglobin ABG Sodium ABG Potassium ABG Chloride ABG Glucose VBG pH Oxyhemoglobin Carboxyhemoglobin Sodium Potassium Chloride Carbon Dioxide BUN Creatinine Glucose POC Glucose Lactic Acid 13.60 H* Calcium Phosphorus Magnesium Total Bilirubin AST ALT Ammonia 214.0 H Lactate Dehydrogenase Total Creatine Kinase CK-MB (CK-2) Troponin T NT-Pro-B Natriuret Pep Total Protein Albumin Triglycerides TSH 6.260 H Arterial Blood Glucose Arterial Blood Ionized Calcium Urine pH Urine WBC (Auto) Urine Creatinine 10/10/20 10/10/20 10/10/20 10:46 10:48 10:48 WBC RBC 5.28 H Hgb 15.5 H Hct 48.8 H RDW Lymph % (Auto) [place] % (Auto) Lymph # (Auto) [place] # (Auto) Seg Neutrophils % Lymphocytes % (Manual) 42.0 H Monocytes % (Manual) Seg Neutrophils # Seg Neutrophils # Man Lymphocytes # (Manual) Monocytes # (Manual) D-Dimer Heparin Anti-Xa Level ABG pH POC ABG pCO2 POC ABG pO2 ABG pO2 ABG HCO3 ABG O2 Saturation ABG Base Excess ABG Hemoglobin ABG Oxyhemoglobin ABG Sodium ABG Potassium ABG Chloride ABG Glucose VBG pH Oxyhemoglobin Carboxyhemoglobin Sodium Potassium 3.3 L Chloride 91.2 L Carbon Dioxide BUN Creatinine 1.8 H Glucose 231 H POC Glucose Lactic Acid Calcium Phosphorus Magnesium Total Bilirubin AST 60 H ALT 57 H Ammonia Lactate Dehydrogenase Total Creatine Kinase CK-MB (CK-2) Troponin T NT-Pro-B Natriuret Pep 1187 H Total Protein 9.0 H Albumin Triglycerides TSH Arterial Blood Glucose Arterial Blood Ionized Calcium Urine pH Urine WBC (Auto) Urine Creatinine 10/10/20 10/10/20 10/10/20 10:48 10:48 10:48 WBC RBC Hgb Hct RDW Lymph % (Auto) [place] % (Auto) Lymph # (Auto) [place] # (Auto) Seg Neutrophils % Lymphocytes % (Manual) Monocytes % (Manual) Seg Neutrophils # Seg Neutrophils # Man Lymphocytes # (Manual) Monocytes # (Manual) D-Dimer 679.5 H Heparin Anti-Xa Level ABG pH POC ABG pCO2 POC ABG pO2 ABG pO2 ABG HCO3 ABG O2 Saturation ABG Base Excess ABG Hemoglobin ABG Oxyhemoglobin ABG Sodium ABG Potassium ABG Chloride ABG Glucose VBG pH 6.870 L* Oxyhemoglobin Carboxyhemoglobin Sodium Potassium Chloride Carbon Dioxide BUN Creatinine Glucose POC Glucose Lactic Acid Calcium Phosphorus Magnesium Total Bilirubin AST ALT Ammonia Lactate Dehydrogenase 386 H Total Creatine Kinase CK-MB (CK-2) Troponin T NT-Pro-B Natriuret Pep Total Protein Albumin Triglycerides TSH Arterial Blood Glucose Arterial Blood Ionized Calcium Urine pH Urine WBC (Auto) Urine Creatinine 10/10/20 10/10/20 10/10/20 14:10 14:20 15:50 WBC RBC Hgb Hct RDW Lymph % (Auto) [place] % (Auto) Lymph # (Auto) [place] # (Auto) Seg Neutrophils % Lymphocytes % (Manual) Monocytes % (Manual) Seg Neutrophils # Seg Neutrophils # Man Lymphocytes # (Manual) Monocytes # (Manual) D-Dimer Heparin Anti-Xa Level ABG pH 7.175 L 7.247 L POC ABG pCO2 85.0 H POC ABG pO2 43.7 L ABG pO2 60.3 L ABG HCO3 32.0 H ABG O2 Saturation 86.1 L ABG Base Excess ABG Hemoglobin ABG Oxyhemoglobin 67.7 L ABG Sodium ABG Potassium ABG Chloride ABG Glucose 247 H VBG pH Oxyhemoglobin 84.4 L Carboxyhemoglobin Sodium Potassium Chloride Carbon Dioxide BUN Creatinine Glucose POC Glucose Lactic Acid 4.00 H* Calcium Phosphorus Magnesium Total Bilirubin AST ALT Ammonia Lactate Dehydrogenase Total Creatine Kinase CK-MB (CK-2) Troponin T NT-Pro-B Natriuret Pep Total Protein Albumin Triglycerides TSH Arterial Blood Glucose 247 H Arterial Blood Ionized Calcium 4.4 L Urine pH Urine WBC (Auto) Urine Creatinine 10/10/20 10/10/20 10/10/20 15:50 16:22 18:18 WBC RBC Hgb Hct RDW Lymph % (Auto) [place] % (Auto) Lymph # (Auto) [place] # (Auto) Seg Neutrophils % Lymphocytes % (Manual) Monocytes % (Manual) Seg Neutrophils # Seg Neutrophils # Man Lymphocytes # (Manual) Monocytes # (Manual) D-Dimer Heparin Anti-Xa Level ABG pH 7.171 L POC ABG pCO2 96.6 H POC ABG pO2 55.3 L ABG pO2 ABG HCO3 ABG O2 Saturation ABG Base Excess ABG Hemoglobin ABG Oxyhemoglobin 81.4 L ABG Sodium ABG Potassium ABG Chloride ABG Glucose 115 H VBG pH Oxyhemoglobin Carboxyhemoglobin Sodium Potassium Chloride Carbon Dioxide BUN Creatinine Glucose POC Glucose 132 H Lactic Acid Calcium Phosphorus Magnesium Total Bilirubin AST ALT Ammonia Lactate Dehydrogenase Total Creatine Kinase 1192 H CK-MB (CK-2) 21.7 H Troponin T 0.377 H* D NT-Pro-B Natriuret Pep Total Protein Albumin Triglycerides TSH Arterial Blood Glucose 115 H Arterial Blood Ionized Calcium Urine pH Urine WBC (Auto) Urine Creatinine 10/10/20 10/10/20 10/10/20 18:18 18:18 22:49 WBC 23.0 H RBC 5.12 H Hgb Hct RDW Lymph % (Auto) [place] % (Auto) Lymph # (Auto) [place] # (Auto) Seg Neutrophils % Lymphocytes % (Manual) 4.0 L Monocytes % (Manual) 9.0 H Seg Neutrophils # Seg Neutrophils # Man 13.8 H Lymphocytes # (Manual) 0.9 L Monocytes # (Manual) 2.1 H D-Dimer Heparin Anti-Xa Level ABG pH POC ABG pCO2 POC ABG pO2 ABG pO2 ABG HCO3 ABG O2 Saturation ABG Base Excess ABG Hemoglobin ABG Oxyhemoglobin ABG Sodium ABG Potassium ABG Chloride ABG Glucose VBG pH Oxyhemoglobin Carboxyhemoglobin Sodium 146 H Potassium Chloride Carbon Dioxide 34 H D BUN 27 H Creatinine 2.7 H Glucose 102 H POC Glucose Lactic Acid Calcium Phosphorus Magnesium Total Bilirubin AST 90 H ALT 66 H Ammonia Lactate Dehydrogenase Total Creatine Kinase CK-MB (CK-2) Troponin T 0.273 H* D NT-Pro-B Natriuret Pep Total Protein Albumin Triglycerides TSH Arterial Blood Glucose Arterial Blood Ionized Calcium Urine pH Urine WBC (Auto) Urine Creatinine 10/11/20 10/11/20 10/11/20 02:00 02:00 02:00 WBC 17.3 H RBC Hgb Hct RDW Lymph % (Auto) 3.9 L [place] % (Auto) Lymph # (Auto) 0.7 L [place] # (Auto) Seg Neutrophils % 93.0 H Lymphocytes % (Manual) Monocytes % (Manual) Seg Neutrophils # 16.1 H Seg Neutrophils # Man Lymphocytes # (Manual) Monocytes # (Manual) D-Dimer Heparin Anti-Xa Level ABG pH POC ABG pCO2 POC ABG pO2 ABG pO2 ABG HCO3 ABG O2 Saturation ABG Base Excess ABG Hemoglobin ABG Oxyhemoglobin ABG Sodium ABG Potassium ABG Chloride ABG Glucose VBG pH Oxyhemoglobin Carboxyhemoglobin Sodium 149 H Potassium 3.3 L Chloride 95.3 L Carbon Dioxide 37 H BUN 29 H Creatinine 2.6 H Glucose POC Glucose Lactic Acid Calcium Phosphorus Magnesium Total Bilirubin AST 80 H ALT 59 H Ammonia Lactate Dehydrogenase Total Creatine Kinase CK-MB (CK-2) Troponin T 0.201 H* D NT-Pro-B Natriuret Pep Total Protein Albumin 3.6 L Triglycerides TSH Arterial Blood Glucose Arterial Blood Ionized Calcium Urine pH Urine WBC (Auto) Urine Creatinine 10/11/20 10/11/20 10/11/20 03:51 08:35 11:15 WBC RBC Hgb Hct RDW Lymph % (Auto) [place] % (Auto) Lymph # (Auto) [place] # (Auto) Seg Neutrophils % Lymphocytes % (Manual) Monocytes % (Manual) Seg Neutrophils # Seg Neutrophils # Man Lymphocytes # (Manual) Monocytes # (Manual) D-Dimer Heparin Anti-Xa Level 0.22 L ABG pH 7.491 H POC ABG pCO2 57.6 H POC ABG pO2 ABG pO2 ABG HCO3 ABG O2 Saturation ABG Base Excess ABG Hemoglobin ABG Oxyhemoglobin ABG Sodium 150.0 H ABG Potassium 3.1 L ABG Chloride 96.0 L ABG Glucose 122 H VBG pH Oxyhemoglobin Carboxyhemoglobin Sodium Potassium Chloride Carbon Dioxide BUN Creatinine Glucose POC Glucose 151 H Lactic Acid Calcium Phosphorus Magnesium Total Bilirubin AST ALT Ammonia Lactate Dehydrogenase Total Creatine Kinase CK-MB (CK-2) Troponin T NT-Pro-B Natriuret Pep Total Protein Albumin Triglycerides TSH Arterial Blood Glucose 122 H Arterial Blood Ionized Calcium 3.9 L Urine pH Urine WBC (Auto) Urine Creatinine 10/11/20 10/11/20 10/11/20 13:30 13:30 13:30 WBC 15.0 H RBC Hgb Hct RDW Lymph % (Auto) [place] % (Auto) Lymph # (Auto) [place] # (Auto) Seg Neutrophils % Lymphocytes % (Manual) Monocytes % (Manual) Seg Neutrophils # Seg Neutrophils # Man Lymphocytes # (Manual) Monocytes # (Manual) D-Dimer Heparin Anti-Xa Level ABG pH POC ABG pCO2 POC ABG pO2 ABG pO2 ABG HCO3 ABG O2 Saturation ABG Base Excess ABG Hemoglobin ABG Oxyhemoglobin ABG Sodium ABG Potassium ABG Chloride ABG Glucose VBG pH Oxyhemoglobin Carboxyhemoglobin Sodium Potassium Chloride Carbon Dioxide BUN Creatinine Glucose POC Glucose Lactic Acid Calcium Phosphorus Magnesium Total Bilirubin AST ALT Ammonia Lactate Dehydrogenase Total Creatine Kinase CK-MB (CK-2) Troponin T NT-Pro-B Natriuret Pep Total Protein Albumin Triglycerides TSH Arterial Blood Glucose Arterial Blood Ionized Calcium Urine pH 9.0 H Urine WBC (Auto) 18.0 H Urine Creatinine 80.5 H 10/11/20 10/11/20 10/12/20 17:17 23:14 03:53 WBC RBC Hgb Hct RDW Lymph % (Auto) [place] % (Auto) Lymph # (Auto) [place] # (Auto) Seg Neutrophils % Lymphocytes % (Manual) Monocytes % (Manual) Seg Neutrophils # Seg Neutrophils # Man Lymphocytes # (Manual) Monocytes # (Manual) D-Dimer Heparin Anti-Xa Level ABG pH 7.545 H POC ABG pCO2 54.6 H POC ABG pO2 231.9 H ABG pO2 ABG HCO3 ABG O2 Saturation ABG Base Excess ABG Hemoglobin ABG Oxyhemoglobin 98.5 H ABG Sodium 150.5 H ABG Potassium 3.2 L ABG Chloride 96.0 L ABG Glucose 148 H VBG pH Oxyhemoglobin Carboxyhemoglobin Sodium Potassium Chloride Carbon Dioxide BUN Creatinine Glucose POC Glucose 121 H 135 H Lactic Acid Calcium Phosphorus Magnesium Total Bilirubin AST ALT Ammonia Lactate Dehydrogenase Total Creatine Kinase CK-MB (CK-2) Troponin T NT-Pro-B Natriuret Pep Total Protein Albumin Triglycerides TSH Arterial Blood Glucose 148 H Arterial Blood Ionized Calcium 3.8 L Urine pH Urine WBC (Auto) Urine Creatinine 10/12/20 10/12/20 10/12/20 04:00 05:10 05:12 WBC 14.3 H RBC Hgb 11.6 L Hct 35.2 L RDW Lymph % (Auto) [place] % (Auto) Lymph # (Auto) [place] # (Auto) Seg Neutrophils % Lymphocytes % (Manual) Monocytes % (Manual) Seg Neutrophils # Seg Neutrophils # Man Lymphocytes # (Manual) Monocytes # (Manual) D-Dimer Heparin Anti-Xa Level ABG pH POC ABG pCO2 POC ABG pO2 ABG pO2 ABG HCO3 ABG O2 Saturation ABG Base Excess ABG Hemoglobin ABG Oxyhemoglobin ABG Sodium ABG Potassium ABG Chloride ABG Glucose VBG pH Oxyhemoglobin Carboxyhemoglobin Sodium 155 H Potassium 3.3 L Chloride 97.9 L Carbon Dioxide 47 H* D BUN 50 H Creatinine 3.4 H Glucose 146 H POC Glucose 137 H Lactic Acid Calcium 8.0 L Phosphorus Magnesium Total Bilirubin AST ALT Ammonia Lactate Dehydrogenase Total Creatine Kinase CK-MB (CK-2) Troponin T 0.125 H* D NT-Pro-B Natriuret Pep Total Protein Albumin Triglycerides TSH Arterial Blood Glucose Arterial Blood Ionized Calcium Urine pH Urine WBC (Auto) Urine Creatinine 10/12/20 10/12/20 10/12/20 11:39 16:01 19:49 WBC RBC Hgb Hct RDW Lymph % (Auto) [place] % (Auto) Lymph # (Auto) [place] # (Auto) Seg Neutrophils % Lymphocytes % (Manual) Monocytes % (Manual) Seg Neutrophils # Seg Neutrophils # Man Lymphocytes # (Manual) Monocytes # (Manual) D-Dimer Heparin Anti-Xa Level ABG pH POC ABG pCO2 POC ABG pO2 ABG pO2 ABG HCO3 ABG O2 Saturation ABG Base Excess ABG Hemoglobin ABG Oxyhemoglobin ABG Sodium ABG Potassium ABG Chloride ABG Glucose VBG pH Oxyhemoglobin Carboxyhemoglobin Sodium 157 H Potassium 3.3 L Chloride Carbon Dioxide 47 H* BUN 52 H Creatinine 3.0 H Glucose 137 H POC Glucose 138 H 119 H Lactic Acid Calcium 8.0 L Phosphorus Magnesium Total Bilirubin AST ALT Ammonia Lactate Dehydrogenase Total Creatine Kinase CK-MB (CK-2) Troponin T NT-Pro-B Natriuret Pep Total Protein Albumin Triglycerides TSH Arterial Blood Glucose Arterial Blood Ionized Calcium Urine pH Urine WBC (Auto) Urine Creatinine 10/12/20 10/13/20 10/13/20 23:37 02:28 04:52 WBC RBC Hgb Hct RDW Lymph % (Auto) [place] % (Auto) Lymph # (Auto) [place] # (Auto) Seg Neutrophils % Lymphocytes % (Manual) Monocytes % (Manual) Seg Neutrophils # Seg Neutrophils # Man Lymphocytes # (Manual) Monocytes # (Manual) D-Dimer Heparin Anti-Xa Level ABG pH 7.485 H POC ABG pCO2 57.1 H POC ABG pO2 ABG pO2 ABG HCO3 ABG O2 Saturation ABG Base Excess ABG Hemoglobin ABG Oxyhemoglobin ABG Sodium 152.4 H ABG Potassium ABG Chloride ABG Glucose 129 H VBG pH Oxyhemoglobin Carboxyhemoglobin Sodium 155 H Potassium Chloride Carbon Dioxide 45 H* BUN 52 H Creatinine 2.7 H Glucose 121 H POC Glucose 131 H Lactic Acid Calcium Phosphorus Magnesium 2.40 H Total Bilirubin AST ALT Ammonia Lactate Dehydrogenase Total Creatine Kinase CK-MB (CK-2) Troponin T NT-Pro-B Natriuret Pep Total Protein Albumin Triglycerides 278 H TSH Arterial Blood Glucose 129 H Arterial Blood Ionized Calcium 4.1 L Urine pH Urine WBC (Auto) Urine Creatinine 10/13/20 10/13/20 10/13/20 04:52 05:13 11:37 WBC 14.7 H RBC Hgb 11.7 L Hct RDW 15.8 H Lymph % (Auto) [place] % (Auto) Lymph # (Auto) [place] # (Auto) Seg Neutrophils % Lymphocytes % (Manual) Monocytes % (Manual) Seg Neutrophils # Seg Neutrophils # Man Lymphocytes # (Manual) Monocytes # (Manual) D-Dimer Heparin Anti-Xa Level ABG pH POC ABG pCO2 POC ABG pO2 ABG pO2 ABG HCO3 ABG O2 Saturation ABG Base Excess ABG Hemoglobin ABG Oxyhemoglobin ABG Sodium ABG Potassium ABG Chloride ABG Glucose VBG pH Oxyhemoglobin Carboxyhemoglobin Sodium Potassium Chloride Carbon Dioxide BUN Creatinine Glucose POC Glucose 116 H 116 H Lactic Acid Calcium Phosphorus Magnesium Total Bilirubin AST ALT Ammonia Lactate Dehydrogenase Total Creatine Kinase CK-MB (CK-2) Troponin T NT-Pro-B Natriuret Pep Total Protein Albumin Triglycerides TSH Arterial Blood Glucose Arterial Blood Ionized Calcium Urine pH Urine WBC (Auto) Urine Creatinine 10/13/20 10/14/20 10/14/20 17:50 03:45 04:46 WBC 11.1 H RBC Hgb Hct RDW 15.3 H Lymph % (Auto) [place] % (Auto) Lymph # (Auto) [place] # (Auto) Seg Neutrophils % Lymphocytes % (Manual) Monocytes % (Manual) Seg Neutrophils # Seg Neutrophils # Man Lymphocytes # (Manual) Monocytes # (Manual) D-Dimer Heparin Anti-Xa Level ABG pH POC ABG pCO2 59.6 H POC ABG pO2 ABG pO2 ABG HCO3 ABG O2 Saturation ABG Base Excess ABG Hemoglobin ABG Oxyhemoglobin ABG Sodium 151.4 H ABG Potassium 3.3 L ABG Chloride ABG Glucose 138 H VBG pH Oxyhemoglobin Carboxyhemoglobin 1.6 H Sodium Potassium Chloride Carbon Dioxide BUN Creatinine Glucose POC Glucose 140 H Lactic Acid Calcium Phosphorus Magnesium Total Bilirubin AST ALT Ammonia Lactate Dehydrogenase Total Creatine Kinase CK-MB (CK-2) Troponin T NT-Pro-B Natriuret Pep Total Protein Albumin Triglycerides TSH Arterial Blood Glucose 138 H Arterial Blood Ionized Calcium 4.5 L Urine pH Urine WBC (Auto) Urine Creatinine 10/14/20 10/14/20 10/14/20 04:46 05:10 11:11 WBC RBC Hgb Hct RDW Lymph % (Auto) [place] % (Auto) Lymph # (Auto) [place] # (Auto) Seg Neutrophils % Lymphocytes % (Manual) Monocytes % (Manual) Seg Neutrophils # Seg Neutrophils # Man Lymphocytes # (Manual) Monocytes # (Manual) D-Dimer Heparin Anti-Xa Level ABG pH POC ABG pCO2 POC ABG pO2 ABG pO2 ABG HCO3 ABG O2 Saturation ABG Base Excess ABG Hemoglobin ABG Oxyhemoglobin ABG Sodium ABG Potassium ABG Chloride ABG Glucose VBG pH Oxyhemoglobin Carboxyhemoglobin Sodium 152 H Potassium 3.5 L Chloride Carbon Dioxide 38 H D BUN 46 H Creatinine 2.3 H Glucose 127 H POC Glucose 116 H 114 H Lactic Acid Calcium Phosphorus Magnesium Total Bilirubin AST ALT Ammonia Lactate Dehydrogenase Total Creatine Kinase CK-MB (CK-2) Troponin T NT-Pro-B Natriuret Pep Total Protein Albumin Triglycerides TSH Arterial Blood Glucose Arterial Blood Ionized Calcium Urine pH Urine WBC (Auto) Urine Creatinine 10/14/20 10/14/20 10/15/20 18:53 23:23 04:12 WBC RBC Hgb Hct RDW Lymph % (Auto) [place] % (Auto) Lymph # (Auto) [place] # (Auto) Seg Neutrophils % Lymphocytes % (Manual) Monocytes % (Manual) Seg Neutrophils # Seg Neutrophils # Man Lymphocytes # (Manual) Monocytes # (Manual) D-Dimer Heparin Anti-Xa Level ABG pH POC ABG pCO2 POC ABG pO2 ABG pO2 ABG HCO3 ABG O2 Saturation ABG Base Excess ABG Hemoglobin ABG Oxyhemoglobin ABG Sodium ABG Potassium ABG Chloride ABG Glucose VBG pH Oxyhemoglobin Carboxyhemoglobin Sodium 149 H Potassium 3.2 L Chloride Carbon Dioxide 37 H BUN 40 H Creatinine 2.0 H Glucose 124 H POC Glucose 128 H 113 H Lactic Acid Calcium Phosphorus Magnesium Total Bilirubin AST ALT Ammonia Lactate Dehydrogenase Total Creatine Kinase CK-MB (CK-2) Troponin T NT-Pro-B Natriuret Pep Total Protein Albumin Triglycerides TSH Arterial Blood Glucose Arterial Blood Ionized Calcium Urine pH Urine WBC (Auto) Urine Creatinine 10/15/20 10/15/20 10/15/20 04:22 11:39 17:36 WBC RBC Hgb Hct RDW Lymph % (Auto) [place] % (Auto) Lymph # (Auto) [place] # (Auto) Seg Neutrophils % Lymphocytes % (Manual) Monocytes % (Manual) Seg Neutrophils # Seg Neutrophils # Man Lymphocytes # (Manual) Monocytes # (Manual) D-Dimer Heparin Anti-Xa Level ABG pH POC ABG pCO2 POC ABG pO2 ABG pO2 115.0 H ABG HCO3 38.1 H ABG O2 Saturation ABG Base Excess 11.3 H ABG Hemoglobin 11.0 L ABG Oxyhemoglobin ABG Sodium ABG Potassium ABG Chloride ABG Glucose VBG pH Oxyhemoglobin Carboxyhemoglobin Sodium Potassium Chloride Carbon Dioxide BUN Creatinine Glucose POC Glucose 123 H 118 H Lactic Acid Calcium Phosphorus Magnesium Total Bilirubin AST ALT Ammonia Lactate Dehydrogenase Total Creatine Kinase CK-MB (CK-2) Troponin T NT-Pro-B Natriuret Pep Total Protein Albumin Triglycerides TSH Arterial Blood Glucose Arterial Blood Ionized Calcium Urine pH Urine WBC (Auto) Urine Creatinine 10/15/20 10/16/20 10/16/20 23:18 03:13 05:10 WBC RBC Hgb Hct RDW Lymph % (Auto) [place] % (Auto) Lymph # (Auto) [place] # (Auto) Seg Neutrophils % Lymphocytes % (Manual) Monocytes % (Manual) Seg Neutrophils # Seg Neutrophils # Man Lymphocytes # (Manual) Monocytes # (Manual) D-Dimer Heparin Anti-Xa Level ABG pH POC ABG pCO2 POC ABG pO2 ABG pO2 104.5 H ABG HCO3 35.1 H ABG O2 Saturation ABG Base Excess 9.5 H ABG Hemoglobin 7.9 L ABG Oxyhemoglobin ABG Sodium ABG Potassium ABG Chloride ABG Glucose VBG pH Oxyhemoglobin Carboxyhemoglobin Sodium Potassium 3.3 L Chloride Carbon Dioxide 33 H BUN 37 H Creatinine 1.4 H Glucose 148 H POC Glucose 135 H Lactic Acid Calcium Phosphorus Magnesium 2.40 H Total Bilirubin AST ALT Ammonia Lactate Dehydrogenase Total Creatine Kinase CK-MB (CK-2) Troponin T NT-Pro-B Natriuret Pep Total Protein Albumin Triglycerides TSH Arterial Blood Glucose Arterial Blood Ionized Calcium Urine pH Urine WBC (Auto) Urine Creatinine 10/16/20 10/16/20 10/16/20 06:36 11:08 17:07 WBC RBC Hgb Hct RDW Lymph % (Auto) [place] % (Auto) Lymph # (Auto) [place] # (Auto) Seg Neutrophils % Lymphocytes % (Manual) Monocytes % (Manual) Seg Neutrophils # Seg Neutrophils # Man Lymphocytes # (Manual) Monocytes # (Manual) D-Dimer Heparin Anti-Xa Level ABG pH POC ABG pCO2 POC ABG pO2 ABG pO2 ABG HCO3 ABG O2 Saturation ABG Base Excess ABG Hemoglobin ABG Oxyhemoglobin ABG Sodium ABG Potassium ABG Chloride ABG Glucose VBG pH Oxyhemoglobin Carboxyhemoglobin Sodium Potassium Chloride Carbon Dioxide BUN Creatinine Glucose POC Glucose 150 H 111 H 132 H Lactic Acid Calcium Phosphorus Magnesium Total Bilirubin AST ALT Ammonia Lactate Dehydrogenase Total Creatine Kinase CK-MB (CK-2) Troponin T NT-Pro-B Natriuret Pep Total Protein Albumin Triglycerides TSH Arterial Blood Glucose Arterial Blood Ionized Calcium Urine pH Urine WBC (Auto) Urine Creatinine 10/16/20 10/17/20 10/17/20 23:38 03:32 03:32 WBC RBC Hgb Hct RDW Lymph % (Auto) [place] % (Auto) Lymph # (Auto) [place] # (Auto) Seg Neutrophils % Lymphocytes % (Manual) Monocytes % (Manual) Seg Neutrophils # Seg Neutrophils # Man Lymphocytes # (Manual) Monocytes # (Manual) D-Dimer Heparin Anti-Xa Level ABG pH POC ABG pCO2 POC ABG pO2 ABG pO2 ABG HCO3 ABG O2 Saturation ABG Base Excess ABG Hemoglobin ABG Oxyhemoglobin ABG Sodium ABG Potassium ABG Chloride ABG Glucose VBG pH Oxyhemoglobin Carboxyhemoglobin Sodium 146 H Potassium Chloride Carbon Dioxide 32 H BUN 57 H Creatinine 2.4 H D Glucose 124 H POC Glucose 117 H Lactic Acid Calcium Phosphorus 5.20 H D Magnesium Total Bilirubin AST ALT Ammonia Lactate Dehydrogenase Total Creatine Kinase CK-MB (CK-2) Troponin T NT-Pro-B Natriuret Pep Total Protein Albumin Triglycerides TSH Arterial Blood Glucose Arterial Blood Ionized Calcium Urine pH Urine WBC (Auto) Urine Creatinine 10/17/20 10/17/20 10/18/20 05:10 17:33 00:13 WBC RBC Hgb Hct RDW Lymph % (Auto) [place] % (Auto) Lymph # (Auto) [place] # (Auto) Seg Neutrophils % Lymphocytes % (Manual) Monocytes % (Manual) Seg Neutrophils # Seg Neutrophils # Man Lymphocytes # (Manual) Monocytes # (Manual) D-Dimer Heparin Anti-Xa Level ABG pH POC ABG pCO2 POC ABG pO2 ABG pO2 ABG HCO3 ABG O2 Saturation ABG Base Excess ABG Hemoglobin ABG Oxyhemoglobin ABG Sodium ABG Potassium ABG Chloride ABG Glucose VBG pH Oxyhemoglobin Carboxyhemoglobin Sodium Potassium Chloride Carbon Dioxide BUN Creatinine Glucose POC Glucose 122 H 121 H 23 L Lactic Acid Calcium Phosphorus Magnesium Total Bilirubin AST ALT Ammonia Lactate Dehydrogenase Total Creatine Kinase CK-MB (CK-2) Troponin T NT-Pro-B Natriuret Pep Total Protein Albumin Triglycerides TSH Arterial Blood Glucose Arterial Blood Ionized Calcium Urine pH Urine WBC (Auto) Urine Creatinine 10/18/20 10/18/20 10/18/20 00:16 03:27 03:27 WBC RBC Hgb 11.7 L Hct RDW Lymph % (Auto) [place] % (Auto) Lymph # (Auto) [place] # (Auto) Seg Neutrophils % Lymphocytes % (Manual) Monocytes % (Manual) Seg Neutrophils # Seg Neutrophils # Man Lymphocytes # (Manual) Monocytes # (Manual) D-Dimer Heparin Anti-Xa Level ABG pH POC ABG pCO2 POC ABG pO2 ABG pO2 ABG HCO3 ABG O2 Saturation ABG Base Excess ABG Hemoglobin ABG Oxyhemoglobin ABG Sodium ABG Potassium ABG Chloride ABG Glucose VBG pH Oxyhemoglobin Carboxyhemoglobin Sodium Potassium Chloride 97.6 L Carbon Dioxide BUN 90 H Creatinine 3.3 H Glucose 146 H POC Glucose 134 H Lactic Acid Calcium Phosphorus Magnesium Total Bilirubin 1.70 H AST ALT Ammonia Lactate Dehydrogenase Total Creatine Kinase CK-MB (CK-2) Troponin T NT-Pro-B Natriuret Pep Total Protein Albumin 3.1 L Triglycerides TSH Arterial Blood Glucose Arterial Blood Ionized Calcium Urine pH Urine WBC (Auto) Urine Creatinine 10/18/20 10/18/20 10/18/20 05:09 11:19 17:15 WBC RBC Hgb Hct RDW Lymph % (Auto) [place] % (Auto) Lymph # (Auto) [place] # (Auto) Seg Neutrophils % Lymphocytes % (Manual) Monocytes % (Manual) Seg Neutrophils # Seg Neutrophils # Man Lymphocytes # (Manual) Monocytes # (Manual) D-Dimer Heparin Anti-Xa Level ABG pH POC ABG pCO2 POC ABG pO2 ABG pO2 ABG HCO3 ABG O2 Saturation ABG Base Excess ABG Hemoglobin ABG Oxyhemoglobin ABG Sodium ABG Potassium ABG Chloride ABG Glucose VBG pH Oxyhemoglobin Carboxyhemoglobin Sodium Potassium Chloride Carbon Dioxide BUN Creatinine Glucose POC Glucose 144 H 145 H 151 H Lactic Acid Calcium Phosphorus Magnesium Total Bilirubin AST ALT Ammonia Lactate Dehydrogenase Total Creatine Kinase CK-MB (CK-2) Troponin T NT-Pro-B Natriuret Pep Total Protein Albumin Triglycerides TSH Arterial Blood Glucose Arterial Blood Ionized Calcium Urine pH Urine WBC (Auto) Urine Creatinine 10/18/20 10/18/20 10/19/20 23:16 Unknown 04:55 WBC RBC Hgb Hct RDW Lymph % (Auto) [place] % (Auto) Lymph # (Auto) [place] # (Auto) Seg Neutrophils % Lymphocytes % (Manual) Monocytes % (Manual) Seg Neutrophils # Seg Neutrophils # Man Lymphocytes # (Manual) Monocytes # (Manual) D-Dimer Heparin Anti-Xa Level ABG pH POC ABG pCO2 POC ABG pO2 ABG pO2 ABG HCO3 ABG O2 Saturation ABG Base Excess ABG Hemoglobin ABG Oxyhemoglobin ABG Sodium ABG Potassium ABG Chloride ABG Glucose VBG pH Oxyhemoglobin Carboxyhemoglobin Sodium Potassium Chloride Carbon Dioxide BUN 104 H Creatinine 3.1 H Glucose 139 H POC Glucose 123 H Lactic Acid Calcium Phosphorus Magnesium Total Bilirubin AST ALT Ammonia Lactate Dehydrogenase Total Creatine Kinase CK-MB (CK-2) Troponin T NT-Pro-B Natriuret Pep Total Protein Albumin Triglycerides TSH Arterial Blood Glucose Arterial Blood Ionized Calcium Urine pH Urine WBC (Auto) 115.0 H Urine Creatinine 10/19/20 10/19/20 10/19/20 04:55 11:35 13:14 WBC 15.1 H RBC Hgb 11.1 L Hct 34.4 L RDW Lymph % (Auto) 4.2 L [place] % (Auto) 11.9 H Lymph # (Auto) 0.6 L [place] # (Auto) 1.8 H Seg Neutrophils % 82.0 H Lymphocytes % (Manual) Monocytes % (Manual) Seg Neutrophils # 12.4 H Seg Neutrophils # Man Lymphocytes # (Manual) Monocytes # (Manual) D-Dimer Heparin Anti-Xa Level ABG pH POC ABG pCO2 POC ABG pO2 ABG pO2 ABG HCO3 ABG O2 Saturation ABG Base Excess ABG Hemoglobin ABG Oxyhemoglobin ABG Sodium ABG Potassium ABG Chloride ABG Glucose VBG pH Oxyhemoglobin Carboxyhemoglobin Sodium Potassium Chloride Carbon Dioxide BUN Creatinine Glucose POC Glucose 136 H Lactic Acid Calcium Phosphorus Magnesium Total Bilirubin AST ALT Ammonia Lactate Dehydrogenase Total Creatine Kinase CK-MB (CK-2) Troponin T NT-Pro-B Natriuret Pep Total Protein Albumin Triglycerides TSH Arterial Blood Glucose Arterial Blood Ionized Calcium Urine pH Urine WBC (Auto) Urine Creatinine 93.7 H 10/19/20 10/19/20 10/20/20 17:53 23:39 04:30 WBC RBC Hgb Hct RDW Lymph % (Auto) [place] % (Auto) Lymph # (Auto) [place] # (Auto) Seg Neutrophils % Lymphocytes % (Manual) Monocytes % (Manual) Seg Neutrophils # Seg Neutrophils # Man Lymphocytes # (Manual) Monocytes # (Manual) D-Dimer Heparin Anti-Xa Level ABG pH POC ABG pCO2 POC ABG pO2 ABG pO2 ABG HCO3 ABG O2 Saturation ABG Base Excess ABG Hemoglobin ABG Oxyhemoglobin ABG Sodium ABG Potassium ABG Chloride ABG Glucose VBG pH Oxyhemoglobin Carboxyhemoglobin Sodium Potassium Chloride Carbon Dioxide BUN 104 H Creatinine 2.8 H Glucose 151 H POC Glucose 137 H 133 H Lactic Acid Calcium Phosphorus Magnesium Total Bilirubin AST ALT Ammonia Lactate Dehydrogenase Total Creatine Kinase CK-MB (CK-2) Troponin T NT-Pro-B Natriuret Pep Total Protein Albumin Triglycerides TSH Arterial Blood Glucose Arterial Blood Ionized Calcium Urine pH Urine WBC (Auto) Urine Creatinine 10/20/20 10/20/20 10/20/20 04:30 05:38 11:34 WBC 17.9 H RBC Hgb 11.7 L Hct RDW Lymph % (Auto) [place] % (Auto) Lymph # (Auto) [place] # (Auto) Seg Neutrophils % Lymphocytes % (Manual) Monocytes % (Manual) Seg Neutrophils # Seg Neutrophils # Man Lymphocytes # (Manual) Monocytes # (Manual) D-Dimer Heparin Anti-Xa Level ABG pH POC ABG pCO2 POC ABG pO2 ABG pO2 ABG HCO3 ABG O2 Saturation ABG Base Excess ABG Hemoglobin ABG Oxyhemoglobin ABG Sodium ABG Potassium ABG Chloride ABG Glucose VBG pH Oxyhemoglobin Carboxyhemoglobin Sodium Potassium Chloride Carbon Dioxide BUN Creatinine Glucose POC Glucose 164 H 148 H Lactic Acid Calcium Phosphorus Magnesium Total Bilirubin AST ALT Ammonia Lactate Dehydrogenase Total Creatine Kinase CK-MB (CK-2) Troponin T NT-Pro-B Natriuret Pep Total Protein Albumin Triglycerides TSH Arterial Blood Glucose Arterial Blood Ionized Calcium Urine pH Urine WBC (Auto) Urine Creatinine 10/20/20 10/20/20 10/20/20 17:40 20:20 23:29 WBC RBC Hgb Hct RDW Lymph % (Auto) [place] % (Auto) Lymph # (Auto) [place] # (Auto) Seg Neutrophils % Lymphocytes % (Manual) Monocytes % (Manual) Seg Neutrophils # Seg Neutrophils # Man Lymphocytes # (Manual) Monocytes # (Manual) D-Dimer Heparin Anti-Xa Level ABG pH 7.292 L POC ABG pCO2 68.5 H POC ABG pO2 ABG pO2 ABG HCO3 ABG O2 Saturation ABG Base Excess ABG Hemoglobin 11.6 L ABG Oxyhemoglobin ABG Sodium ABG Potassium ABG Chloride ABG Glucose 145 H VBG pH Oxyhemoglobin Carboxyhemoglobin Sodium Potassium Chloride Carbon Dioxide BUN Creatinine Glucose POC Glucose 130 H 136 H Lactic Acid Calcium Phosphorus Magnesium Total Bilirubin AST ALT Ammonia Lactate Dehydrogenase Total Creatine Kinase CK-MB (CK-2) Troponin T NT-Pro-B Natriuret Pep Total Protein Albumin Triglycerides TSH Arterial Blood Glucose 145 H Arterial Blood Ionized Calcium Urine pH Urine WBC (Auto) Urine Creatinine 10/21/20 10/21/20 10/21/20 04:20 06:26 06:30 WBC RBC Hgb Hct RDW Lymph % (Auto) [place] % (Auto) Lymph # (Auto) [place] # (Auto) Seg Neutrophils % Lymphocytes % (Manual) Monocytes % (Manual) Seg Neutrophils # Seg Neutrophils # Man Lymphocytes # (Manual) Monocytes # (Manual) D-Dimer Heparin Anti-Xa Level ABG pH 7.262 L POC ABG pCO2 72.4 H POC ABG pO2 81.6 L ABG pO2 ABG HCO3 ABG O2 Saturation ABG Base Excess ABG Hemoglobin 11.6 L ABG Oxyhemoglobin ABG Sodium ABG Potassium ABG Chloride ABG Glucose 140 H VBG pH Oxyhemoglobin Carboxyhemoglobin Sodium Potassium Chloride Carbon Dioxide 33 H BUN 104 H Creatinine 2.9 H Glucose 153 H POC Glucose 128 H Lactic Acid Calcium Phosphorus Magnesium Total Bilirubin AST ALT Ammonia Lactate Dehydrogenase Total Creatine Kinase CK-MB (CK-2) Troponin T NT-Pro-B Natriuret Pep Total Protein Albumin Triglycerides TSH Arterial Blood Glucose 140 H Arterial Blood Ionized Calcium Urine pH Urine WBC (Auto) Urine Creatinine 10/21/20 10/21/20 10/21/20 06:30 11:24 17:21 WBC 13.3 H RBC Hgb 10.7 L Hct 32.7 L RDW Lymph % (Auto) [place] % (Auto) Lymph # (Auto) [place] # (Auto) Seg Neutrophils % Lymphocytes % (Manual) Monocytes % (Manual) Seg Neutrophils # Seg Neutrophils # Man Lymphocytes # (Manual) Monocytes # (Manual) D-Dimer Heparin Anti-Xa Level ABG pH POC ABG pCO2 POC ABG pO2 ABG pO2 ABG HCO3 ABG O2 Saturation ABG Base Excess ABG Hemoglobin ABG Oxyhemoglobin ABG Sodium ABG Potassium ABG Chloride ABG Glucose VBG pH Oxyhemoglobin Carboxyhemoglobin Sodium Potassium Chloride Carbon Dioxide BUN Creatinine Glucose POC Glucose 178 H 138 H Lactic Acid Calcium Phosphorus Magnesium Total Bilirubin AST ALT Ammonia Lactate Dehydrogenase Total Creatine Kinase CK-MB (CK-2) Troponin T NT-Pro-B Natriuret Pep Total Protein Albumin Triglycerides TSH Arterial Blood Glucose Arterial Blood Ionized Calcium Urine pH Urine WBC (Auto) Urine Creatinine 10/22/20 10/22/20 10/22/20 00:05 04:30 06:15 WBC RBC Hgb Hct RDW Lymph % (Auto) [place] % (Auto) Lymph # (Auto) [place] # (Auto) Seg Neutrophils % Lymphocytes % (Manual) Monocytes % (Manual) Seg Neutrophils # Seg Neutrophils # Man Lymphocytes # (Manual) Monocytes # (Manual) D-Dimer Heparin Anti-Xa Level ABG pH 7.225 L POC ABG pCO2 76.6 H POC ABG pO2 ABG pO2 ABG HCO3 ABG O2 Saturation ABG Base Excess ABG Hemoglobin 11.1 L ABG Oxyhemoglobin ABG Sodium ABG Potassium ABG Chloride ABG Glucose 151 H VBG pH Oxyhemoglobin Carboxyhemoglobin Sodium Potassium Chloride Carbon Dioxide 32 H BUN 103 H Creatinine 2.7 H Glucose 151 H POC Glucose 135 H Lactic Acid Calcium Phosphorus Magnesium Total Bilirubin AST ALT Ammonia Lactate Dehydrogenase Total Creatine Kinase CK-MB (CK-2) Troponin T NT-Pro-B Natriuret Pep Total Protein Albumin Triglycerides TSH Arterial Blood Glucose 151 H Arterial Blood Ionized Calcium Urine pH Urine WBC (Auto) Urine Creatinine 10/22/20 10/22/20 10/22/20 06:18 11:34 11:44 WBC RBC Hgb Hct RDW Lymph % (Auto) [place] % (Auto) Lymph # (Auto) [place] # (Auto) Seg Neutrophils % Lymphocytes % (Manual) Monocytes % (Manual) Seg Neutrophils # Seg Neutrophils # Man Lymphocytes # (Manual) Monocytes # (Manual) D-Dimer Heparin Anti-Xa Level ABG pH 7.278 L POC ABG pCO2 67.8 H POC ABG pO2 ABG pO2 ABG HCO3 ABG O2 Saturation ABG Base Excess ABG Hemoglobin 10.2 L ABG Oxyhemoglobin ABG Sodium ABG Potassium ABG Chloride ABG Glucose 172 H VBG pH Oxyhemoglobin Carboxyhemoglobin Sodium Potassium Chloride Carbon Dioxide BUN Creatinine Glucose POC Glucose 137 H 147 H Lactic Acid Calcium Phosphorus Magnesium Total Bilirubin AST ALT Ammonia Lactate Dehydrogenase Total Creatine Kinase CK-MB (CK-2) Troponin T NT-Pro-B Natriuret Pep Total Protein Albumin Triglycerides TSH Arterial Blood Glucose 172 H Arterial Blood Ionized Calcium Urine pH Urine WBC (Auto) Urine Creatinine 10/22/20 10/22/20 10/23/20 17:40 23:55 05:11 WBC RBC Hgb Hct RDW Lymph % (Auto) [place] % (Auto) Lymph # (Auto) [place] # (Auto) Seg Neutrophils % Lymphocytes % (Manual) Monocytes % (Manual) Seg Neutrophils # Seg Neutrophils # Man Lymphocytes # (Manual) Monocytes # (Manual) D-Dimer Heparin Anti-Xa Level ABG pH POC ABG pCO2 63.6 H POC ABG pO2 81.2 L ABG pO2 ABG HCO3 ABG O2 Saturation ABG Base Excess ABG Hemoglobin 10.6 L ABG Oxyhemoglobin ABG Sodium ABG Potassium ABG Chloride 109.0 H ABG Glucose 149 H VBG pH Oxyhemoglobin Carboxyhemoglobin Sodium Potassium Chloride Carbon Dioxide BUN Creatinine Glucose POC Glucose 141 H 139 H Lactic Acid Calcium Phosphorus Magnesium Total Bilirubin AST ALT Ammonia Lactate Dehydrogenase Total Creatine Kinase CK-MB (CK-2) Troponin T NT-Pro-B Natriuret Pep Total Protein Albumin Triglycerides TSH Arterial Blood Glucose 149 H Arterial Blood Ionized Calcium Urine pH Urine WBC (Auto) Urine Creatinine 10/23/20 10/23/20 10/23/20 05:39 06:00 11:32 WBC RBC Hgb Hct RDW Lymph % (Auto) [place] % (Auto) Lymph # (Auto) [place] # (Auto) Seg Neutrophils % Lymphocytes % (Manual) Monocytes % (Manual) Seg Neutrophils # Seg Neutrophils # Man Lymphocytes # (Manual) Monocytes # (Manual) D-Dimer Heparin Anti-Xa Level ABG pH POC ABG pCO2 POC ABG pO2 ABG pO2 ABG HCO3 ABG O2 Saturation ABG Base Excess ABG Hemoglobin ABG Oxyhemoglobin ABG Sodium ABG Potassium ABG Chloride ABG Glucose VBG pH Oxyhemoglobin Carboxyhemoglobin Sodium 146 H Potassium Chloride Carbon Dioxide 35 H BUN 92 H Creatinine 2.0 H Glucose 144 H POC Glucose 139 H 176 H Lactic Acid Calcium Phosphorus Magnesium Total Bilirubin AST ALT Ammonia Lactate Dehydrogenase Total Creatine Kinase CK-MB (CK-2) Troponin T NT-Pro-B Natriuret Pep Total Protein Albumin Triglycerides TSH Arterial Blood Glucose Arterial Blood Ionized Calcium Urine pH Urine WBC (Auto) Urine Creatinine 10/23/20 10/23/20 10/24/20 11:34 17:55 05:33 WBC RBC Hgb Hct RDW Lymph % (Auto) [place] % (Auto) Lymph # (Auto) [place] # (Auto) Seg Neutrophils % Lymphocytes % (Manual) Monocytes % (Manual) Seg Neutrophils # Seg Neutrophils # Man Lymphocytes # (Manual) Monocytes # (Manual) D-Dimer Heparin Anti-Xa Level ABG pH POC ABG pCO2 POC ABG pO2 ABG pO2 ABG HCO3 ABG O2 Saturation ABG Base Excess ABG Hemoglobin ABG Oxyhemoglobin ABG Sodium ABG Potassium ABG Chloride ABG Glucose VBG pH Oxyhemoglobin Carboxyhemoglobin Sodium 147 H Potassium Chloride Carbon Dioxide 32 H BUN 76 H Creatinine 1.7 H Glucose 172 H POC Glucose 173 H 135 H Lactic Acid Calcium Phosphorus Magnesium Total Bilirubin AST ALT Ammonia Lactate Dehydrogenase Total Creatine Kinase CK-MB (CK-2) Troponin T NT-Pro-B Natriuret Pep Total Protein Albumin Triglycerides TSH Arterial Blood Glucose Arterial Blood Ionized Calcium Urine pH Urine WBC (Auto) Urine Creatinine 10/24/20 10/24/20 10/24/20 05:41 12:09 18:09 WBC RBC Hgb Hct RDW Lymph % (Auto) [place] % (Auto) Lymph # (Auto) [place] # (Auto) Seg Neutrophils % Lymphocytes % (Manual) Monocytes % (Manual) Seg Neutrophils # Seg Neutrophils # Man Lymphocytes # (Manual) Monocytes # (Manual) D-Dimer Heparin Anti-Xa Level ABG pH POC ABG pCO2 POC ABG pO2 ABG pO2 ABG HCO3 ABG O2 Saturation ABG Base Excess ABG Hemoglobin ABG Oxyhemoglobin ABG Sodium ABG Potassium ABG Chloride ABG Glucose VBG pH Oxyhemoglobin Carboxyhemoglobin Sodium Potassium Chloride Carbon Dioxide BUN Creatinine Glucose POC Glucose 156 H 154 H 132 H Lactic Acid Calcium Phosphorus Magnesium Total Bilirubin AST ALT Ammonia Lactate Dehydrogenase Total Creatine Kinase CK-MB (CK-2) Troponin T NT-Pro-B Natriuret Pep Total Protein Albumin Triglycerides TSH Arterial Blood Glucose Arterial Blood Ionized Calcium Urine pH Urine WBC (Auto) Urine Creatinine 10/24/20 10/25/20 10/25/20 23:39 05:29 08:55 WBC RBC Hgb Hct RDW Lymph % (Auto) [place] % (Auto) Lymph # (Auto) [place] # (Auto) Seg Neutrophils % Lymphocytes % (Manual) Monocytes % (Manual) Seg Neutrophils # Seg Neutrophils # Man Lymphocytes # (Manual) Monocytes # (Manual) D-Dimer Heparin Anti-Xa Level ABG pH POC ABG pCO2 POC ABG pO2 ABG pO2 ABG HCO3 ABG O2 Saturation ABG Base Excess ABG Hemoglobin ABG Oxyhemoglobin ABG Sodium ABG Potassium ABG Chloride ABG Glucose VBG pH Oxyhemoglobin Carboxyhemoglobin Sodium 150 H Potassium Chloride 108.3 H Carbon Dioxide 32 H BUN 57 H Creatinine 1.5 H Glucose 142 H POC Glucose 131 H 142 H Lactic Acid Calcium Phosphorus Magnesium Total Bilirubin AST ALT Ammonia Lactate Dehydrogenase Total Creatine Kinase CK-MB (CK-2) Troponin T NT-Pro-B Natriuret Pep Total Protein Albumin Triglycerides TSH Arterial Blood Glucose Arterial Blood Ionized Calcium Urine pH Urine WBC (Auto) Urine Creatinine 10/25/20 10/25/20 10/25/20 08:55 11:08 18:10 WBC 14.3 H RBC 3.57 L Hgb 10.3 L Hct 31.6 L RDW Lymph % (Auto) [place] % (Auto) Lymph # (Auto) [place] # (Auto) Seg Neutrophils % Lymphocytes % (Manual) Monocytes % (Manual) Seg Neutrophils # Seg Neutrophils # Man Lymphocytes # (Manual) Monocytes # (Manual) D-Dimer Heparin Anti-Xa Level ABG pH POC ABG pCO2 52.3 H POC ABG pO2 ABG pO2 ABG HCO3 ABG O2 Saturation ABG Base Excess ABG Hemoglobin 11.2 L ABG Oxyhemoglobin ABG Sodium ABG Potassium ABG Chloride 108.0 H ABG Glucose 167 H VBG pH Oxyhemoglobin Carboxyhemoglobin Sodium Potassium Chloride Carbon Dioxide BUN Creatinine Glucose POC Glucose 157 H Lactic Acid Calcium Phosphorus Magnesium Total Bilirubin AST ALT Ammonia Lactate Dehydrogenase Total Creatine Kinase CK-MB (CK-2) Troponin T NT-Pro-B Natriuret Pep Total Protein Albumin Triglycerides TSH Arterial Blood Glucose 167 H Arterial Blood Ionized Calcium Urine pH Urine WBC (Auto) Urine Creatinine 10/25/20 10/26/20 10/26/20 18:20 00:20 06:08 WBC RBC Hgb Hct RDW Lymph % (Auto) [place] % (Auto) Lymph # (Auto) [place] # (Auto) Seg Neutrophils % Lymphocytes % (Manual) Monocytes % (Manual) Seg Neutrophils # Seg Neutrophils # Man Lymphocytes # (Manual) Monocytes # (Manual) D-Dimer Heparin Anti-Xa Level ABG pH POC ABG pCO2 POC ABG pO2 ABG pO2 ABG HCO3 ABG O2 Saturation ABG Base Excess ABG Hemoglobin ABG Oxyhemoglobin ABG Sodium ABG Potassium ABG Chloride ABG Glucose VBG pH Oxyhemoglobin Carboxyhemoglobin Sodium Potassium Chloride Carbon Dioxide BUN Creatinine Glucose POC Glucose 127 H 108 H 119 H Lactic Acid Calcium Phosphorus Magnesium Total Bilirubin AST ALT Ammonia Lactate Dehydrogenase Total Creatine Kinase CK-MB (CK-2) Troponin T NT-Pro-B Natriuret Pep Total Protein Albumin Triglycerides TSH Arterial Blood Glucose Arterial Blood Ionized Calcium Urine pH Urine WBC (Auto) Urine Creatinine 10/26/20 10/26/20 10/26/20 07:38 07:38 11:28 WBC 13.5 H RBC 3.37 L Hgb 9.8 L Hct 30.0 L RDW Lymph % (Auto) [place] % (Auto) Lymph # (Auto) [place] # (Auto) Seg Neutrophils % Lymphocytes % (Manual) Monocytes % (Manual) Seg Neutrophils # Seg Neutrophils # Man Lymphocytes # (Manual) Monocytes # (Manual) D-Dimer Heparin Anti-Xa Level ABG pH POC ABG pCO2 POC ABG pO2 ABG pO2 ABG HCO3 ABG O2 Saturation ABG Base Excess ABG Hemoglobin ABG Oxyhemoglobin ABG Sodium ABG Potassium ABG Chloride ABG Glucose VBG pH Oxyhemoglobin Carboxyhemoglobin Sodium 149 H Potassium Chloride 107.6 H Carbon Dioxide 34 H BUN 49 H Creatinine 1.4 H Glucose 137 H POC Glucose 148 H Lactic Acid Calcium Phosphorus Magnesium Total Bilirubin AST ALT Ammonia Lactate Dehydrogenase Total Creatine Kinase CK-MB (CK-2) Troponin T NT-Pro-B Natriuret Pep Total Protein Albumin Triglycerides TSH Arterial Blood Glucose Arterial Blood Ionized Calcium Urine pH Urine WBC (Auto) Urine Creatinine Allied health notes reviewed: nursing
--- NOTE | 2020-10-26 14:11 | Progress Note ---
<JOIJOI HSee - Last Filed: 10/26/20 14:08> Assessment and Plan Assessment and plan: Sepsis s/p multiple Cardiac Arrests Right-sided pneumonia MRSA in tracheal aspirate NSTEMI type II Acute heart failure Hypernatremia Afib/Alutter Leukocytosis Acute hypoxic respiratory failure Acute kidney injury Transaminitis HTN Obesity -Infectious disease, CCM, GI, nephrology, cardiology, surgery consulted, appreciate recommendations -Antibiotic therapy -/6 recultured (blood/sputum/nasal discharge and urinalysis), tracheal aspirate with MRSA -Linezolid -Continue antihypertensive regimen (changed to p.o.), titrate as needed -s/p IV amiodarone for A. fib/a flutter now on p.o. beta-shital -Trend CBC, BMP, LFT -Continue mechanical ventilation, wean as tolerated, VAP bundle -Avoid nephrotoxic medications, strict intake and output, renal ultrasound shows no obstruction -10/10 echocardiogram shows left internal systolic function normal, moderate concentric left ventricle hypertrophy, mild to side diastolic dysfunction, LVEF 55 to 60% with no pericardial effusion -Bilateral Doppler ultrasound negative for DVT/SVT which shows bilateral popliteal cysts -MRI Brain shows restricted diffusion and increased T2 signal cerebral cortex which can be seen in the setting of anoxic brain injury and/ or status epilepticus. -Repeat EEG pending GI/DVT prophylaxis: SCDs to bilateral lower extremities while in bed, PPI, Heparin subq Dispo: ICU/ possible LTACH The high probability of a clinically significant, sudden or life threatening deterioration of the [multi] system(s) required my full and direct attention, intervention and personal management. The aggregate critical care time was [35] minutes. This time is in addition to time spent performing reported procedures but includes the following: [x] Data Review and interpretation [x] Patient assessment and monitoring of vital signs [x] Documentation [x] Medication orders and management History Interval history: This is a 55-year-old male with hypertension, asthma, obesity in the emergency by presents the emergency department on 10/10 after receiving a Covid vaccine being found unresponsive in his car in the emergency room by with no pulse and ACLS protocol was initiated from his car to emergency room #21 where it was continued. Patient was intubated after ROSC was achieved and a central line was placed and the patient was initiated on pressors. In the emergency room patient seems to have seizure-like activity and then collapsed and was unresponsive with no palpable pulse and ACLS was again initiated patient with achievement of ROSC. Patient again coded with ACLS protocol in the CT room. Upon arrival to the ICU patient again coded and ROSC was achieved and he was placed on epinephrine, Lasix, heparin and sodium bicarbonate drip and sedated with propofol. An NG tube was placed, A-line was placed. Patient was admitted to the hospitalist service with consult to [facility], nephrology, infectious disease and cardiology. 10/11: Patient COVID-19 PCR is pending and he remains on mechanical ventilation, examination on assist control 400/30/12/0.95. Patient is scheduled for an echocardiogram and we will obtain bilateral lower extremity Doppler ultrasound given elevated D-dimer. Patient was supposed to have a CTA chest when he coded yesterday. We will begin trickle feeding. This morning patient was on a heparin drip and was noted to have bloody drainage from his NG tube. Heparin drip was discontinued. 10/12: Patient remains on propofol and Lasix drip at the time my examination and he is on assist control 400/25/12/0.60. Patient is hypokalemic this morning which was repleted. Nephrology discontinued Lasix drip and Diamox. Patient is hypertensive and has been started on hydralazine and beta-shital IV. He has been titrated off his vasopressors since yesterday. Vancomycin discontinued. Patient is currently on cefepime and azithromycin. 10/13: Sedation vacation attempted today and patient was not responsive to verbal or painful stimuli, does not track or focus or follow commands. This morning the patient has some respiratory alkalosis on ABG, hypernatremia and metabolic alkalosis on BMP. His kidney functions has improved slightly. Patient still has leukocytosis and infectious disease was like to continue antibiotic therapy. GI evaluated the patient yesterday and started the patient on PPI does not plan to scope at this time. At the time my examination patient assist-control 400/20/12/0.40 and sedated on propofol at 20. 4/2: GI has recommended a CT abdomen since there is increased output from OG tube and an MRI brain without contrast has been ordered per neurology rec ommendations. EEG is pending and the patient has been started on Keppra per neurology.. Nutrition has been consulted for initiation of parenteral nutrition. Patient remains sedated with propofol and his hypernatremia, leukocytosis, acute kidney injury and metabolic alkalosis is improving. Patient has hypokalemia today which was repleted. At the time of my examination patient was on assist control 400/14/10/0.40 and CCM has dropped his rate to 12 and PEEP to 8. We have labs ordered for a.m. He was given a clonidine patch given persistent hypertension and he remains on D5 water per nephrology. 10/15: This morning patient was started to have a low-grade fever and he will continue antibiotic therapy per infectious disease. He will remove Tuttle catheter today and place a condom cath. Patient's renal function is worsening with a BUN/creatinine of 57/2.4 today and he has hyperphosphatemia at 5.2. This morning the time my examination patient is sedated on fentanyl and has TPN infusing. He is on assist control 400/12/8/0.35. Per GI we will start trial of tube feedings initiation has been reconsulted for orders. 10/18: Patient was febrile overnight and infectious disease has recultured (blood/sputum/right nostril culture) and sent in urinalysis. Cefepime was extended due to high fever and was started on vancomycin. Tube feeding is at goal and we will discontinue his parenteral nutrition. Patient is unable to obtain his MRI due to increased hypoxia and nasal secretions. He will be started on CPAP trials today. This time I examination patient was sedated on fentanyl and had PPN running at 42. His renal function tests have worsened and now has hyperchloremia. Hypernatremia has resolved. 10/19: Patient's T-max was 100.2 and he was pancultured yesterday, remains on an tibiotic therapy and still has copious drainage from his nostrils. Patient still has leukocytosis however his/creatinine improved slightly to 3.1 from 3.3. Patient's urinalysis from yesterday shows pyuria. Patient's tracheal aspirate from yesterday grew Staph aureus. Patient is on cefepime and vancomycin. 10/20: This morning at the time my examination patient was CPAP trial of /6 and his T-max was 100.9. Patient sedated on fentanyl at 2 just received IV push fentanyl for tachycardia. Today his creatinine is 2.8 from 3.1 yesterday. Infectious disease has stopped cefepime and vancomycin and started linezolid and MRSA PCR is pending. Today removed his NG tube and replaced it with OG tube. We will keep the patient normal saline at 75 mL's per hour for 3 L. Patient developed A. fib/a flutter overnight and cardiology has increased his Lopressor and IV amiodarone. We requested neurology evaluation today. 10/21: Cardiology we will increase Lopressor to 3 times daily and discontinue his amiodarone drip. Infectious disease would like a sinus CT when feasible however patient did have a moment of desatting earlier this week when we attempted MRI brain. And again yesterday when we attempted a "trial run" with positioning at bedside Patient is on linezolid for 10 days per ID. 10/22/20; patient was seen and evaluated this morning, patient had low-grade fever overnight. Patient is on Lopressor per cardiology recommendation. Patient did not follow commands, no improvement in mental status. Evaluated by neurology yesterday and neurology once MRI or CAT scan but cannot be done because patient desats when he lies flat. Patient is on linezolid per ID recommendation. Continue NG tube feeding. Continue with Keppra. Patient is on assist control with PEEP of 6. Management plan was discussed with his yesterday. 10/23/2020; patient is on Zyvox for positive MRSA from tracheal aspirate and nasal secretion culture. Patient's mentation did not improve and does not follow commands. He was reevaluated by neurology and recommend MRI once patient is able to tolerate. MRI could not be done, CT scan could not be done because the patient could not lie flat. Clinically patient looks like she has anoxic encephalopathy. Patient is on NG tube feeding and on mechanical ventilation. Patient is on Keppra. Management plan was discussed with his . 10/24: This morning the patient is on AC TV 400,R 16, Peep 6 and FiO2 of 30% and sedated on 1mcg of Fentayl. He is hypernatremic and his kidney function tests have slightly improved. RN will attempt to obtain MRI Brain today since the patient was able to tolerate a "trial run" of being flat. [facility] plans to resume CPAP trials once MRI obtained. 10/25: This morning the time of examination patient was on assist control tidal volume 400, rate 16, PEEP 6, FiO2 30% and he is currently on CPAP. His MRI brain finding is consistent with status epilepticus or anoxic brain injury. Patient is EEG pending. No acute overnight events reported. 10/26: Patient has been on a CPAP trial 26/12 which she has been tolerating. Surgery was consulted for trach/PEG. Patient's hypernatremia and hyperchloremia slightly better as well as his kidney functions. He has received cardiac clearance for his trach and PEG. No acute events reported overnight. Hospitalist Physical - Constitutional Vitals: Temp Pulse Resp BP Pulse Ox 98.3 F 67 16 154/83 100 10/26/20 11:59 10/26/20 13:40 10/26/20 12:55 10/26/20 13:40 10/26/20 12:55 General appearance: Present: no acute distress, well-nourished, other (Resting comfortably on mechanical ventilation, opens eye spontanously) - EENT Eyes: Present: PERRL ENT: ulcerations - Neck Neck: Present: normal ROM - Respiratory Respiratory effort: normal Respiratory: bilateral: diminished - Cardiovascular Rhythm: regular Heart Sounds: Present: S1 & S2. Absent: systolic murmur, diastolic murmur - Extremities Extremities: no ischemia, pulses intact, pulses symmetrical, No edema, normal temperature, normal color Peripheral Pulses: within normal limits - Abdominal General gastrointestinal: soft, non-tender, non-distended, normal bowel sounds - Integumentary Integumentary: Present: warm, dry - Psychiatric Psychiatric: other (Does not follow commands, does not track/focus, positive gag reflex) - Neurologic Neurologic: other (Does not move extremities spontaneously, no withdrawal to painful stimuli) HEART Score - HEART Score EKG: Non-specific Age: 45-65 Troponin: Troponin T 0.125 ng/mL (0.00-0.029) H* D 10/12/20 04:00 Troponin: 1-3x normal limit - Critical Actions Critical Actions: 4-6 pts:12-16.6% risk of adverse cardiac event. Should be admitted Results - Labs CBC & Chem 7: 10/26/20 07:38 10/26/20 07:38 Labs: Laboratory Last Values WBC 13.5 K/mm3 (4.5-11.0) H 10/26/20 07:38 RBC 3.37 M/mm3 (3.65-5.03) L 10/26/20 07:38 Hgb 9.8 gm/dl (11.8-15.2) L 10/26/20 07:38 Hct 30.0 % (35.5-45.6) L 10/26/20 07:38 MCV 89 fl (84-94) 10/26/20 07:38 MCH 29 pg (28-32) 10/26/20 07:38 MCHC 33 % (32-34) 10/26/20 07:38 RDW 15.0 % (13.2-15.2) 10/26/20 07:38 Plt Count 344 K/mm3 (140-440) 10/26/20 07:38 Lymph % (Auto) 4.2 % (13.4-35.0) L 10/19/20 04:55 [place] % (Auto) 11.9 % (0.0-7.3) H 10/19/20 04:55 Eos % (Auto) 1.6 % (0.0-4.3) 10/19/20 04:55 Baso % (Auto) 0.3 % (0.0-1.8) 10/19/20 04:55 Lymph # (Auto) 0.6 K/mm3 (1.2-5.4) L 10/19/20 04:55 [place] # (Auto) 1.8 K/mm3 (0.0-0.8) H 10/19/20 04:55 Eos # (Auto) 0.2 K/mm3 (0.0-0.4) 10/19/20 04:55 Baso # (Auto) 0.1 K/mm3 (0.0-0.1) 10/19/20 04:55 Add Manual Diff Complete 10/10/20 18:18 Total Counted 100 10/10/20 18:18 Seg Neutrophils % 82.0 % (40.0-70.0) H 10/19/20 04:55 Seg Neuts % (Manual) 60.0 % (40.0-70.0) 10/10/20 18:18 Band Neutrophils % 27.0 % 10/10/20 18:18 Lymphocytes % (Manual) 4.0 % (13.4-35.0) L 10/10/20 18:18 Monocytes % (Manual) 9.0 % (0.0-7.3) H 10/10/20 18:18 Eosinophils % (Manual) 4.0 % (0.0-4.3) 10/10/20 10:48 Metamyelocytes % 1.0 % 10/10/20 10:48 Nucleated RBC % Not Reportable 10/10/20 18:18 Seg Neutrophils # 12.4 K/mm3 (1.8-7.7) H 10/19/20 04:55 Seg Neutrophils # Man 13.8 K/mm3 (1.8-7.7) H 10/10/20 18:18 Band Neutrophils # 6.2 K/mm3 10/10/20 18:18 Lymphocytes # (Manual) 0.9 K/mm3 (1.2-5.4) L 10/10/20 18:18 Abs React Lymphs (Man) 0.0 K/mm3 10/10/20 18:18 Monocytes # (Manual) 2.1 K/mm3 (0.0-0.8) H 10/10/20 18:18 Eosinophils # (Manual) 0.0 K/mm3 (0.0-0.4) 10/10/20 18:18 Basophils # (Manual) 0.0 K/mm3 (0.0-0.1) 10/10/20 18:18 Metamyelocytes # 0.0 K/mm3 10/10/20 18:18 Myelocytes # 0.0 K/mm3 10/10/20 18:18 Promyelocytes # 0.0 K/mm3 10/10/20 18:18 Blast Cells # 0.0 K/mm3 10/10/20 18:18 WBC Morphology Not Reportable 10/10/20 18:18 Hypersegmented Neuts Not Reportable 10/10/20 18:18 Hyposegmented Neuts Not Reportable 10/10/20 18:18 Hypogranular Neuts Not Reportable 10/10/20 18:18 Smudge Cells Not Reportable 10/10/20 18:18 Toxic Granulation Not Reportable 10/10/20 18:18 Toxic Vacuolation Not Reportable 10/10/20 18:18 Dohle Bodies Not Reportable 10/10/20 18:18 Pelger-Huet Anomaly Not Reportable 10/10/20 18:18 Dionicio Rods Not Reportable 10/10/20 18:18 Platelet Estimate Consistent w auto 10/10/20 18:18 Clumped Platelets Not Reportable 10/10/20 18:18 Plt Clumps, EDTA Not Reportable 10/10/20 18:18 Large Platelets Rare 10/10/20 18:18 Giant Platelets Rare 10/10/20 18:18 Platelet Satelliting Not Reportable 10/10/20 18:18 Plt Morphology Comment Not Reportable 10/10/20 18:18 RBC Morphology Not Reportable 10/10/20 18:18 Dimorphic RBCs Not Reportable 10/10/20 18:18 Polychromasia Not Reportable 10/10/20 18:18 Hypochromasia Not Reportable 10/10/20 18:18 Poikilocytosis Not Reportable 10/10/20 18:18 Anisocytosis Not Reportable 10/10/20 18:18 Microcytosis Not Reportable 10/10/20 18:18 Macrocytosis Not Reportable 10/10/20 18:18 Spherocytes Not Reportable 10/10/20 18:18 Pappenheimer Bodies Not Reportable 10/10/20 18:18 Sickle Cells Not Reportable 10/10/20 18:18 Target Cells Not Reportable 10/10/20 18:18 Tear Drop Cells Not Reportable 10/10/20 18:18 Ovalocytes Not Reportable 10/10/20 18:18 Helmet Cells Not Reportable 10/10/20 18:18 Medley-Knowles Bodies Not Reportable 10/10/20 18:18 Banco Rings Not Reportable 10/10/20 18:18 Adelfo Cells Not Reportable 10/10/20 18:18 Bite Cells Not Reportable 10/10/20 18:18 Crenated Cell Not Reportable 10/10/20 18:18 Elliptocytes Not Reportable 10/10/20 18:18 Acanthocytes (Spur) Not Reportable 10/10/20 18:18 Rouleaux Not Reportable 10/10/20 18:18 Hemoglobin C Crystals Not Reportable 10/10/20 18:18 Schistocytes Not Reportable 10/10/20 18:18 Malaria parasites Not Reportable 10/10/20 18:18 Mauricio Bodies Not Reportable 10/10/20 18:18 Hem Pathologist Commnt No 10/10/20 18:18 PT 13.8 Sec. (12.2-14.9) 10/10/20 18:18 INR 1.07 (0.87-1.13) 10/10/20 18:18 APTT 26.9 Sec. (24.2-36.6) 10/10/20 18:18 D-Dimer 679.5 ng/mlDDU (0-234) H 10/10/20 10:48 Heparin Anti-Xa Level 0.22 U.I./ml (0.3-0.7) L 10/11/20 08:35 ABG pH 7.424 (7.320-7.450) 10/25/20 18:10 POC ABG pCO2 52.3 mmHg (32.0-48.0) H 10/25/20 18:10 ABG pCO2 55.5 mm Hg 10/16/20 05:10 POC ABG pO2 97.1 mmHg (83-108) 10/25/20 18:10 ABG pO2 104.5 mm Hg (80.0-90.0) H 10/16/20 05:10 POC ABG HCO3 33.5 10/25/20 18:10 ABG HCO3 35.1 mmol/L (20.0-26.0) H 10/16/20 05:10 ABG O2 Saturation 97.4 (0-100) 10/25/20 18:10 ABG O2 Content 10.8 (0.0-44) 10/16/20 05:10 POC ABG Base Excess 7.8 10/25/20 18:10 ABG Base Excess 9.5 mmol/L (-2.0-3.0) H 10/16/20 05:10 ABG Hemoglobin 11.2 (12.0-17.5) L 10/25/20 18:10 ABG Oxyhemoglobin 96.2 (94-98) 10/25/20 18:10 ABG Carboxyhemoglobin 1.9 % (0.0-5.0) 10/16/20 05:10 ABG Methemoglobin 0.3 (0.0-1.5) 10/25/20 18:10 ABG Sodium 144.9 mmol/L (136.0-145.0) 10/25/20 18:10 ABG Potassium 3.8 mmol/L (3.40-4.50) 10/25/20 18:10 ABG Chloride 108.0 mmol/L (98-107) H 10/25/20 18:10 ABG Glucose 167 mg/dL (65-95) H 10/25/20 18:10 VBG pH 6.870 (7.320-7.420) L* 10/10/20 10:48 Oxyhemoglobin 95.3 % (95.0-99.0) 10/16/20 05:10 Carboxyhemoglobin 0.9 (0.5-1.5) 10/25/20 18:10 FiO2 35 % 10/16/20 05:10 FiO2 % 30 10/25/20 18:10 Sodium 149 mmol/L (137-145) H 10/26/20 07:38 Potassium 3.7 mmol/L (3.6-5.0) 10/26/20 07:38 Chloride 107.6 mmol/L (98-107) H 10/26/20 07:38 Carbon Dioxide 34 mmol/L (22-30) H 10/26/20 07:38 Anion Gap 11 mmol/L 10/26/20 07:38 BUN 49 mg/dL (9-20) H 10/26/20 07:38 Creatinine 1.4 mg/dL (0.8-1.3) H 10/26/20 07:38 Estimated GFR > 60 ml/min 10/26/20 07:38 BUN/Creatinine Ratio 35 % 10/26/20 07:38 Glucose 137 mg/dL (75-100) H 10/26/20 07:38 POC Glucose 148 mg/dL (70-105) H 10/26/20 11:28 Hemoglobin A1c 6.0 % (4-6) 10/11/20 02:00 Lactic Acid 1.10 mmol/L (0.7-2.0) 10/13/20 04:52 Calcium 9.7 mg/dL (8.4-10.2) 10/26/20 07:38 Phosphorus 5.20 mg/dL (2.5-4.5) H D 10/17/20 03:32 Magnesium 2.30 mg/dL (1.7-2.3) 10/17/20 03:32 Ferritin 81.4 ng/mL (30.0-300.0) 10/10/20 10:48 Total Bilirubin 1.70 mg/dL (0.1-1.2) H 10/18/20 03:27 AST 37 units/L (5-40) 10/18/20 03:27 ALT 32 units/L (7-56) 10/18/20 03:27 Alkaline Phosphatase 97 units/L (35-129) 10/18/20 03:27 Ammonia 214.0 umol/L (25-60) H 10/10/20 10:46 Lactate Dehydrogenase 386 units/L (91-180) H 10/10/20 10:48 Total Creatine Kinase 1192 units/L (55-170) H 10/10/20 18:18 CK-MB (CK-2) 21.7 ng/mL (0.0-4.0) H 10/10/20 18:18 CK-MB (CK-2) Rel Index 1.8 (0-4) 10/10/20 18:18 Troponin T 0.125 ng/mL (0.00-0.029) H* D 10/12/20 04:00 C-Reactive Protein 0.90 mg/dL (0.00-1.30) 10/10/20 10:48 NT-Pro-B Natriuret Pep 1187 pg/mL (0-900) H 10/10/20 10:46 Total Protein 6.3 g/dL (6.3-8.2) 10/18/20 03:27 Albumin 3.1 g/dL (3.9-5) L 10/18/20 03:27 Albumin/Globulin Ratio 1.0 % 10/18/20 03:27 Triglycerides 278 mg/dL (2-149) H 10/13/20 04:52 Cholesterol 138 mg/dL (50-199) 10/10/20 18:18 LDL Cholesterol Direct 76 mg/dL (50-130) 10/10/20 18:18 HDL Cholesterol 49 mg/dL (40-59) 10/10/20 18:18 Cholesterol/HDL Ratio 2.81 % 10/10/20 18:18 Procalcitonin 4.98 ng/mL (<0.15) 10/15/20 04:12 TSH 6.260 mlU/mL (0.270-4.200) H 10/10/20 10:46 Arterial Blood Glucose 167 mg/dL (65-95) H 10/25/20 18:10 Arterial Blood Ionized Calcium 5.1 mg/dL (4.6-5.3) 10/25/20 18:10 Urine Color Angelica (Yellow) 10/18/20 Unknown Urine Turbidity Cloudy (Clear) 10/18/20 Unknown Urine pH 5.0 (5.0-7.0) 10/18/20 Unknown Ur Specific [place] 1.017 (1.003-1.030) 10/18/20 Unknown Urine Protein 100 mg/dl mg/dL (Negative) 10/18/20 Unknown Urine Glucose (UA) Neg mg/dL (Negative) 10/18/20 Unknown Urine Ketones Neg mg/dL (Negative) 10/18/20 Unknown Urine Blood Lg (Negative) 10/18/20 Unknown Urine Nitrite Neg (Negative) 10/18/20 Unknown Urine Bilirubin Neg (Negative) 10/18/20 Unknown Urine Urobilinogen 4.0 mg/dL (<2.0) 10/18/20 Unknown Ur Leukocyte Esterase Neg (Negative) 10/18/20 Unknown Urine WBC (Auto) 115.0 /HPF (0.0-6.0) H 10/18/20 Unknown Urine RBC (Auto) 98.0 /HPF (0.0-6.0) 10/18/20 Unknown U Epithel Cells (Auto) 2.0 /HPF (0-13.0) 10/18/20 Unknown Urine WBC Clumps 3+ /HPF 10/18/20 Unknown Urine Mucus Few /HPF 10/11/20 13:30 Urine Eosinophils None seen (None Seen) 10/11/20 13:30 Urine Creatinine 93.7 mg/dL (0.1-20.0) H 10/19/20 13:14 Urine Sodium 25 mmol/L 10/19/20 13:14 Urine Urea Nitrogen 845 10/19/20 13:14 Nasal Screen MRSA (PCR) Positive (Negative) 10/20/20 13:30 Random Vancomycin 5.8 ug/mL (0-40.0) 10/21/20 06:30 Urine Opiates Screen Negative 10/10/20 10:50 Urine Methadone Screen Negative 10/10/20 10:50 Ur Barbiturates Screen Negative 10/10/20 10:50 Ur Phencyclidine Scrn Negative 10/10/20 10:50 Ur Amphetamines Screen Negative 10/10/20 10:50 U Benzodiazepines Scrn Negative 10/10/20 10:50 Urine Cocaine Screen Negative 10/10/20 10:50 U Marijuana (THC) Screen Positive 10/10/20 10:50 Drugs of Abuse Note Disclamer 10/10/20 10:50 Plasma/Serum Alcohol < 0.01 % (0-0.07) 10/10/20 10:48 Coronavirus (PCR) Negative (Negative) 10/11/20 Unknown Blood Type AB POSITIVE 10/10/20 10:48 Antibody Screen Negative 10/10/20 10:48 Tuttle/IV: Voiding Method Incontinent Active Medications - Current Medications Current Medications: Generic Name Dose Route Start Last Admin Trade Name Freq PRN Reason Stop Dose Admin Acetaminophen 650 mg 10/10/20 21:51 10/20/20 09:11 Acetaminophen 325 Mg Tab PO 650 mg Q4H PRN Administration Pain MILD(1-3)/Fever >100.5/SALVADOR Acetaminophen 650 mg 10/11/20 11:24 10/17/20 17:16 Acetaminophen 650 Mg Rect Supp [place] 650 mg Q6H PRN Administration Fever >101 Albuterol 2.5 mg 10/11/20 13:12 Albuterol 2.5 Mg/3 Ml Nebu IH Q6HRT PRN Shortness Of Breath Amlodipine Besylate 10 mg 10/25/20 13:00 10/26/20 10:05 Amlodipine 10 Mg Tab PO 10 mg QDAY PEPITO Administration Lipase/Protease/Amylase 1 each 10/10/20 22:18 Lipase 10,500/Protease 25,000/Amylase 43,750 (Units) Dr Santana FEEDTUBE PRN PRN For Clogged Feeding Tube Clonidine HCl 0.3 mg 10/14/20 15:00 10/21/20 14:05 Clonidine Tts 0.3 Mg/24 Hr Patch TD 0.3 mg Fr PEPITO Administration Docusate Sodium 100 mg 10/16/20 22:00 10/26/20 09:57 Docusate Sodium 100 Mg/10 Ml Oral Liqd PO 100 mg BID PEPITO Administration Fentanyl 50 mcg 10/16/20 14:10 10/23/20 10:53 Fentanyl 100 Mcg/2 Ml Inj IV 50 mcg Q10MIN PRN Administration ANALGESIA Glycopyrrolate 2 mg 10/19/20 14:00 10/26/20 13:40 Glycopyrrolate 1 Mg Tab PO 2 mg Q6H PEPITO Administration Heparin Sodium (Porcine) 5,000 unit 10/11/20 22:00 10/26/20 09:58 Heparin 5,000 Unit/1 Ml Vial SUB-Q 5,000 unit Q12HR PEPITO Administration Hydralazine HCl 5 mg 10/15/20 20:25 10/24/20 08:20 Hydralazine 20 Mg/1 Ml Inj IV 5 mg Q6H PRN Administration Hypertension Hydralazine HCl 100 mg 10/24/20 09:30 10/26/20 13:40 Hydralazine 25 Mg Tab PO 100 mg Q8HR PEPITO Administration Hydrophilic Ointment 1 applic 10/10/20 10:34 Lip Therapy Vaseline TP Q2HR PRN Dry Lips Levetiracetam 500 mg/ Dextrose 105 mls @ 400 mls/hr 10/13/20 18:00 10/26/20 05:38 IV 400 mls/hr Q12H PEPITO Administration Fentanyl Citrate 2,000 mcg in 100 mls @ 6.175 mls/hr 10/16/20 15:00 10/25/20 18:08 Fentanyl Drip Premix IV 0.5 mcg/kg/hr TITR PEPITO 3.088 mls/hr Administration Protocol 1 MCG/KG/HR Linezolid 600 mg in 300 mls @ 300 mls/hr 10/20/20 12:00 10/26/20 09:58 Zyvox 600mg/300ml IV 10/29/20 22:59 300 mls/hr Q12HR PEPITO Administration Protocol Lansoprazole 30 mg 10/24/20 10:00 10/26/20 09:57 Lansoprazole 30 Mg Solutab FEEDTUBE 30 mg BID PEPITO Administration Metoclopramide HCl 10 mg 10/10/20 21:51 Metoclopramide 10 Mg/2 Ml Inj IV Q6H PRN Nausea And Vomiting Metoprolol Tartrate 100 mg 10/21/20 14:00 10/26/20 13:40 Metoprolol Tartrate 50 Mg Tab PO 100 mg TID PEPITO Administration Multi-Ingred Cream/Lotion/Oil/Oint 1 applic 10/10/20 10:34 Mineral Oil/Petrolatum, White Ophth Oint 3.5 Gm OU Q4HR PRN Dry Eye(s) Ondansetron HCl 4 mg 10/10/20 21:51 Ondansetron 4 Mg/2 Ml Inj IV Q3H PRN Nausea And Vomiting Polyethylene Glycol 17 gm 10/17/20 10:00 10/26/20 09:57 Polyethylene Glycol 3350 17 Gm Powder PO 17 gm QDAY PEPITO Administration Scopolamine 1 each 10/17/20 10:00 10/26/20 10:03 Scopolamine Transdermal Patch 72 Hr TD 1 each Q3D PEPITO Administration Simple Syrup 15 ml 10/10/20 22:18 Simple Syrup 15 Ml FEEDTUBE PRN PRN Hypoglycemia Simple Syrup 30 ml 10/10/20 22:18 Simple Syrup 15 Ml FEEDTUBE PRN PRN Hypoglycemia Sodium Bicarbonate 325 mg 10/10/20 22:18 Sodium Bicarbonate 325 Mg Tab FEEDTUBE PRN PRN For Clogged Feeding Tube Sodium Chloride 10 ml 10/10/20 22:00 10/26/20 10:01 Sodium Chloride 0.9% 10 Ml Flush Syringe IV 10 ml BID PEPITO Administration Sodium Chloride 10 ml 10/10/20 21:51 10/21/20 09:56 Sodium Chloride 0.9% 10 Ml Flush Syringe IV 10 ml PRN PRN Administration LINE FLUSH Nutrition/Malnutrition Assess - Dietary Evaluation Nutrition/Malnutrition Findings: Nutrition Notes Start: 10/11/20 08:38 Freq: Status: Active Protocol: Document 10/25/20 13:13 CW (Rec: 10/25/20 13:28 CW [id number]) Nutrition Notes Initial or Follow up Reassessment Current Diagnosis Acute Kidney Injury,Sepsis, Hypertension,Heart Failure, Respiratory Failure Other Pertinent Diagnosis GIB, pneu, MRSA ME, pulmonary edema Current Diet TF Nepro at 45 ml/hr Labs/Tests Na 150 BUN 57 Cr 1.5 BG 142 Pertinent Medications Miralax Colace Height 6 ft Weight 126.8 kg [place] Body Weight (kg) 80.90 BMI 37.9 Weight change and time frame Weight loss noted, will monitor Weight Status Morbidly Obese Subjective/Other Information F/U for TF tolerance. Pt remains mechanical vented. TF running at goal and is well tolerated. Na elevated, recommend increasing flush. Will await changing TF regimen to better neat protein needs once renal functioning further improves. Percent of energy/protein needs met: 100%/54% Burn Absent Trauma Absent Difficulty In Swallowing Current % PO Negligible Minimum of two criteria No Fluid Accumulation Mild (non-severe) #1 Nutrition Diagnosis Inadequate oral intake Diagnosis Progress(for reassessment Continues documentation) Is patient on ventilator? Yes Is Patient Ambulatory and/or Out of Bed No REE-([facility]-confined to bed) 2584.764 Kcal/Kg value to use for calculation 14 Approximate Energy Requirements Using 1775 kcal/Kg Calculation Used for Recommendations Kcal/kg Additional Notes protein needs: >162g (>2 kgIBW ) fluid needs: 1 ml/kcal or per MD Nutrition Intervention Change Diet Order: Continue TF Nutrition Support: Nepro at 45 ml/hr with a free water flush of 300 ml q4h for hypernatremia, resume flush of 200 ml q4h once hypernatremia resolved Kcal 1,944 Protein (gm) 87 Fluid (mL) 785 Goal #1 Tolerate TF Goal #2 Meet at least 75% of kcal needs via TF as best as possible Anticipated Discharge Needs: unable to determine at this time Follow-Up By: 10/27/20 Additional Comments F/U TF tolerance, renal related labs <DAVID TORRES R - Last Filed: 10/26/20 17:19> Assessment and Plan Assessment and plan: I saw and evaluated the patient. I agree with the findings and the plan of care as documented in the Nurse Practitioner's~note, with the following corrections and additions. Called family and updated with clinical details. Hospitalist Physical - Constitutional Vitals: Temp Pulse Resp BP Pulse Ox 98.2 F 61 14 129/78 100 10/26/20 16:00 10/26/20 16:30 10/26/20 16:30 10/26/20 16:30 10/26/20 16:30 HEART Score - HEART Score Troponin: Troponin T 0.125 ng/mL (0.00-0.029) H* D 10/12/20 04:00 Results - Labs CBC & Chem 7: 10/26/20 07:38 10/26/20 07:38 Labs: Laboratory Last Values WBC 13.5 K/mm3 (4.5-11.0) H 10/26/20 07:38 RBC 3.37 M/mm3 (3.65-5.03) L 10/26/20 07:38 Hgb 9.8 gm/dl (11.8-15.2) L 10/26/20 07:38 Hct 30.0 % (35.5-45.6) L 10/26/20 07:38 MCV 89 fl (84-94) 10/26/20 07:38 MCH 29 pg (28-32) 10/26/20 07:38 MCHC 33 % (32-34) 10/26/20 07:38 RDW 15.0 % (13.2-15.2) 10/26/20 07:38 Plt Count 344 K/mm3 (140-440) 10/26/20 07:38 Lymph % (Auto) 4.2 % (13.4-35.0) L 10/19/20 04:55 [place] % (Auto) 11.9 % (0.0-7.3) H 10/19/20 04:55 Eos % (Auto) 1.6 % (0.0-4.3) 10/19/20 04:55 Baso % (Auto) 0.3 % (0.0-1.8) 10/19/20 04:55 Lymph # (Auto) 0.6 K/mm3 (1.2-5.4) L 10/19/20 04:55 [place] # (Auto) 1.8 K/mm3 (0.0-0.8) H 10/19/20 04:55 Eos # (Auto) 0.2 K/mm3 (0.0-0.4) 10/19/20 04:55 Baso # (Auto) 0.1 K/mm3 (0.0-0.1) 10/19/20 04:55 Add Manual Diff Complete 10/10/20 18:18 Total Counted 100 10/10/20 18:18 Seg Neutrophils % 82.0 % (40.0-70.0) H 10/19/20 04:55 Seg Neuts % (Manual) 60.0 % (40.0-70.0) 10/10/20 18:18 Band Neutrophils % 27.0 % 10/10/20 18:18 Lymphocytes % (Manual) 4.0 % (13.4-35.0) L 10/10/20 18:18 Monocytes % (Manual) 9.0 % (0.0-7.3) H 10/10/20 18:18 Eosinophils % (Manual) 4.0 % (0.0-4.3) 10/10/20 10:48 Metamyelocytes % 1.0 % 10/10/20 10:48 Nucleated RBC % Not Reportable 10/10/20 18:18 Seg Neutrophils # 12.4 K/mm3 (1.8-7.7) H 10/19/20 04:55 Seg Neutrophils # Man 13.8 K/mm3 (1.8-7.7) H 10/10/20 18:18 Band Neutrophils # 6.2 K/mm3 10/10/20 18:18 Lymphocytes # (Manual) 0.9 K/mm3 (1.2-5.4) L 10/10/20 18:18 Abs React Lymphs (Man) 0.0 K/mm3 10/10/20 18:18 Monocytes # (Manual) 2.1 K/mm3 (0.0-0.8) H 10/10/20 18:18 Eosinophils # (Manual) 0.0 K/mm3 (0.0-0.4) 10/10/20 18:18 Basophils # (Manual) 0.0 K/mm3 (0.0-0.1) 10/10/20 18:18 Metamyelocytes # 0.0 K/mm3 10/10/20 18:18 Myelocytes # 0.0 K/mm3 10/10/20 18:18 Promyelocytes # 0.0 K/mm3 10/10/20 18:18 Blast Cells # 0.0 K/mm3 10/10/20 18:18 WBC Morphology Not Reportable 10/10/20 18:18 Hypersegmented Neuts Not Reportable 10/10/20 18:18 Hyposegmented Neuts Not Reportable 10/10/20 18:18 Hypogranular Neuts Not Reportable 10/10/20 18:18 Smudge Cells Not Reportable 10/10/20 18:18 Toxic Granulation Not Reportable 10/10/20 18:18 Toxic Vacuolation Not Reportable 10/10/20 18:18 Dohle Bodies Not Reportable 10/10/20 18:18 Pelger-Huet Anomaly Not Reportable 10/10/20 18:18 Dionicio Rods Not Reportable 10/10/20 18:18 Platelet Estimate Consistent w auto 10/10/20 18:18 Clumped Platelets Not Reportable 10/10/20 18:18 Plt Clumps, EDTA Not Reportable 10/10/20 18:18 Large Platelets Rare 10/10/20 18:18 Giant Platelets Rare 10/10/20 18:18 Platelet Satelliting Not Reportable 10/10/20 18:18 Plt Morphology Comment Not Reportable 10/10/20 18:18 RBC Morphology Not Reportable 10/10/20 18:18 Dimorphic RBCs Not Reportable 10/10/20 18:18 Polychromasia Not Reportable 10/10/20 18:18 Hypochromasia Not Reportable 10/10/20 18:18 Poikilocytosis Not Reportable 10/10/20 18:18 Anisocytosis Not Reportable 10/10/20 18:18 Microcytosis Not Reportable 10/10/20 18:18 Macrocytosis Not Reportable 10/10/20 18:18 Spherocytes Not Reportable 10/10/20 18:18 Pappenheimer Bodies Not Reportable 10/10/20 18:18 Sickle Cells Not Reportable 10/10/20 18:18 Target Cells Not Reportable 10/10/20 18:18 Tear Drop Cells Not Reportable 10/10/20 18:18 Ovalocytes Not Reportable 10/10/20 18:18 Helmet Cells Not Reportable 10/10/20 18:18 Medley-Knowles Bodies Not Reportable 10/10/20 18:18 Banco Rings Not Reportable 10/10/20 18:18 Lane Cells Not Reportable 10/10/20 18:18 Bite Cells Not Reportable 10/10/20 18:18 Crenated Cell Not Reportable 10/10/20 18:18 Elliptocytes Not Reportable 10/10/20 18:18 Acanthocytes (Spur) Not Reportable 10/10/20 18:18 Rouleaux Not Reportable 10/10/20 18:18 Hemoglobin C Crystals Not Reportable 10/10/20 18:18 Schistocytes Not Reportable 10/10/20 18:18 Malaria parasites Not Reportable 10/10/20 18:18 Mauricio Bodies Not Reportable 10/10/20 18:18 Hem Pathologist Commnt No 10/10/20 18:18 PT 13.8 Sec. (12.2-14.9) 10/10/20 18:18 INR 1.07 (0.87-1.13) 10/10/20 18:18 APTT 26.9 Sec. (24.2-36.6) 10/10/20 18:18 D-Dimer 679.5 ng/mlDDU (0-234) H 10/10/20 10:48 Heparin Anti-Xa Level 0.22 U.I./ml (0.3-0.7) L 10/11/20 08:35 ABG pH 7.424 (7.320-7.450) 10/25/20 18:10 POC ABG pCO2 52.3 mmHg (32.0-48.0) H 10/25/20 18:10 ABG pCO2 55.5 mm Hg 10/16/20 05:10 POC ABG pO2 97.1 mmHg (83-108) 10/25/20 18:10 ABG pO2 104.5 mm Hg (80.0-90.0) H 10/16/20 05:10 POC ABG HCO3 33.5 10/25/20 18:10 ABG HCO3 35.1 mmol/L (20.0-26.0) H 10/16/20 05:10 ABG O2 Saturation 97.4 (0-100) 10/25/20 18:10 ABG O2 Content 10.8 (0.0-44) 10/16/20 05:10 POC ABG Base Excess 7.8 10/25/20 18:10 ABG Base Excess 9.5 mmol/L (-2.0-3.0) H 10/16/20 05:10 ABG Hemoglobin 11.2 (12.0-17.5) L 10/25/20 18:10 ABG Oxyhemoglobin 96.2 (94-98) 10/25/20 18:10 ABG Carboxyhemoglobin 1.9 % (0.0-5.0) 10/16/20 05:10 ABG Methemoglobin 0.3 (0.0-1.5) 10/25/20 18:10 ABG Sodium 144.9 mmol/L (136.0-145.0) 10/25/20 18:10 ABG Potassium 3.8 mmol/L (3.40-4.50) 10/25/20 18:10 ABG Chloride 108.0 mmol/L (98-107) H 10/25/20 18:10 ABG Glucose 167 mg/dL (65-95) H 10/25/20 18:10 VBG pH 6.870 (7.320-7.420) L* 10/10/20 10:48 Oxyhemoglobin 95.3 % (95.0-99.0) 10/16/20 05:10 Carboxyhemoglobin 0.9 (0.5-1.5) 10/25/20 18:10 FiO2 35 % 10/16/20 05:10 FiO2 % 30 10/25/20 18:10 Sodium 149 mmol/L (137-145) H 10/26/20 07:38 Potassium 3.7 mmol/L (3.6-5.0) 10/26/20 07:38 Chloride 107.6 mmol/L (98-107) H 10/26/20 07:38 Carbon Dioxide 34 mmol/L (22-30) H 10/26/20 07:38 Anion Gap 11 mmol/L 10/26/20 07:38 BUN 49 mg/dL (9-20) H 10/26/20 07:38 Creatinine 1.4 mg/dL (0.8-1.3) H 10/26/20 07:38 Estimated GFR > 60 ml/min 10/26/20 07:38 BUN/Creatinine Ratio 35 % 10/26/20 07:38 Glucose 137 mg/dL (75-100) H 10/26/20 07:38 POC Glucose 148 mg/dL (70-105) H 10/26/20 11:28 Hemoglobin A1c 6.0 % (4-6) 10/11/20 02:00 Lactic Acid 1.10 mmol/L (0.7-2.0) 10/13/20 04:52 Calcium 9.7 mg/dL (8.4-10.2) 10/26/20 07:38 Phosphorus 5.20 mg/dL (2.5-4.5) H D 10/17/20 03:32 Magnesium 2.30 mg/dL (1.7-2.3) 10/17/20 03:32 Ferritin 81.4 ng/mL (30.0-300.0) 10/10/20 10:48 Total Bilirubin 1.70 mg/dL (0.1-1.2) H 10/18/20 03:27 AST 37 units/L (5-40) 10/18/20 03:27 ALT 32 units/L (7-56) 10/18/20 03:27 Alkaline Phosphatase 97 units/L (35-129) 10/18/20 03:27 Ammonia 214.0 umol/L (25-60) H 10/10/20 10:46 Lactate Dehydrogenase 386 units/L (91-180) H 10/10/20 10:48 Total Creatine Kinase 1192 units/L (55-170) H 10/10/20 18:18 CK-MB (CK-2) 21.7 ng/mL (0.0-4.0) H 10/10/20 18:18 CK-MB (CK-2) Rel Index 1.8 (0-4) 10/10/20 18:18 Troponin T 0.125 ng/mL (0.00-0.029) H* D 10/12/20 04:00 C-Reactive Protein 0.90 mg/dL (0.00-1.30) 10/10/20 10:48 NT-Pro-B Natriuret Pep 1187 pg/mL (0-900) H 10/10/20 10:46 Total Protein 6.3 g/dL (6.3-8.2) 10/18/20 03:27 Albumin 3.1 g/dL (3.9-5) L 10/18/20 03:27 Albumin/Globulin Ratio 1.0 % 10/18/20 03:27 Triglycerides 278 mg/dL (2-149) H 10/13/20 04:52 Cholesterol 138 mg/dL (50-199) 10/10/20 18:18 LDL Cholesterol Direct 76 mg/dL (50-130) 10/10/20 18:18 HDL Cholesterol 49 mg/dL (40-59) 10/10/20 18:18 Cholesterol/HDL Ratio 2.81 % 10/10/20 18:18 Procalcitonin 4.98 ng/mL (<0.15) 10/15/20 04:12 TSH 6.260 mlU/mL (0.270-4.200) H 10/10/20 10:46 Arterial Blood Glucose 167 mg/dL (65-95) H 10/25/20 18:10 Arterial Blood Ionized Calcium 5.1 mg/dL (4.6-5.3) 10/25/20 18:10 Urine Color Angelica (Yellow) 10/18/20 Unknown Urine Turbidity Cloudy (Clear) 10/18/20 Unknown Urine pH 5.0 (5.0-7.0) 10/18/20 Unknown Ur Specific [place] 1.017 (1.003-1.030) 10/18/20 Unknown Urine Protein 100 mg/dl mg/dL (Negative) 10/18/20 Unknown Urine Glucose (UA) Neg mg/dL (Negative) 10/18/20 Unknown Urine Ketones Neg mg/dL (Negative) 10/18/20 Unknown Urine Blood Lg (Negative) 10/18/20 Unknown Urine Nitrite Neg (Negative) 10/18/20 Unknown Urine Bilirubin Neg (Negative) 10/18/20 Unknown Urine Urobilinogen 4.0 mg/dL (<2.0) 10/18/20 Unknown Ur Leukocyte Esterase Neg (Negative) 10/18/20 Unknown Urine WBC (Auto) 115.0 /HPF (0.0-6.0) H 10/18/20 Unknown Urine RBC (Auto) 98.0 /HPF (0.0-6.0) 10/18/20 Unknown U Epithel Cells (Auto) 2.0 /HPF (0-13.0) 10/18/20 Unknown Urine WBC Clumps 3+ /HPF 10/18/20 Unknown Urine Mucus Few /HPF 10/11/20 13:30 Urine Eosinophils None seen (None Seen) 10/11/20 13:30 Urine Creatinine 93.7 mg/dL (0.1-20.0) H 10/19/20 13:14 Urine Sodium 25 mmol/L 10/19/20 13:14 Urine Urea Nitrogen 845 10/19/20 13:14 Nasal Screen MRSA (PCR) Positive (Negative) 10/20/20 13:30 Random Vancomycin 5.8 ug/mL (0-40.0) 10/21/20 06:30 Urine Opiates Screen Negative 10/10/20 10:50 Urine Methadone Screen Negative 10/10/20 10:50 Ur Barbiturates Screen Negative 10/10/20 10:50 Ur Phencyclidine Scrn Negative 10/10/20 10:50 Ur Amphetamines Screen Negative 10/10/20 10:50 U Benzodiazepines Scrn Negative 10/10/20 10:50 Urine Cocaine Screen Negative 10/10/20 10:50 U Marijuana (THC) Screen Positive 10/10/20 10:50 Drugs of Abuse Note Disclamer 10/10/20 10:50 Plasma/Serum Alcohol < 0.01 % (0-0.07) 10/10/20 10:48 Coronavirus (PCR) Negative (Negative) 10/11/20 Unknown Blood Type AB POSITIVE 10/10/20 10:48 Antibody Screen Negative 10/10/20 10:48 [place]uttle/IV: Voiding Method Incontinent Active Medications - Current Medications Current Medications: Generic Name Dose Route Start Last Admin Trade Name Freq PRN Reason Stop Dose Admin Acetaminophen 650 mg 10/10/20 21:51 10/20/20 09:11 Acetaminophen 325 Mg Tab PO 650 mg Q4H PRN Administration Pain MILD(1-3)/Fever >100.5/SALVADOR Acetaminophen 650 mg 10/11/20 11:24 10/17/20 17:16 Acetaminophen 650 Mg Rect Supp [place] 650 mg Q6H PRN Administration Fever >101 Albuterol 2.5 mg 10/11/20 13:12 Albuterol 2.5 Mg/3 Ml Nebu IH Q6HRT PRN Shortness Of Breath Amlodipine Besylate 10 mg 10/25/20 13:00 10/26/20 10:05 Amlodipine 10 Mg Tab PO 10 mg QDAY PEPITO Administration Lipase/Protease/Amylase 1 each 10/10/20 22:18 Lipase 10,500/Protease 25,000/Amylase 43,750 (Units) Dr Santana FEEDTUBE PRN PRN For Clogged Feeding Tube Clonidine HCl 0.3 mg 10/14/20 15:00 10/21/20 14:05 Clonidine Tts 0.3 Mg/24 Hr Patch TD 0.3 mg Fr PEPITO Administration Docusate Sodium 100 mg 10/16/20 22:00 10/26/20 09:57 Docusate Sodium 100 Mg/10 Ml Oral Liqd PO 100 mg BID PEPITO Administration Fentanyl 50 mcg 10/16/20 14:10 10/23/20 10:53 Fentanyl 100 Mcg/2 Ml Inj IV 50 mcg Q10MIN PRN Administration ANALGESIA Glycopyrrolate 2 mg 10/19/20 14:00 10/26/20 13:40 Glycopyrrolate 1 Mg Tab PO 2 mg Q6H PEPITO Administration Heparin Sodium (Porcine) 5,000 unit 10/11/20 22:00 10/26/20 09:58 Heparin 5,000 Unit/1 Ml Vial SUB-Q 5,000 unit Q12HR PEPITO Administration Hydralazine HCl 5 mg 10/15/20 20:25 10/24/20 08:20 Hydralazine 20 Mg/1 Ml Inj IV 5 mg Q6H PRN Administration Hypertension Hydralazine HCl 100 mg 10/24/20 09:30 10/26/20 13:40 Hydralazine 25 Mg Tab PO 100 mg Q8HR PEPITO Administration Hydrophilic Ointment 1 applic 10/10/20 10:34 Lip Therapy Vaseline TP Q2HR PRN Dry Lips Levetiracetam 500 mg/ Dextrose 105 mls @ 400 mls/hr 10/13/20 18:00 10/26/20 05:38 IV 400 mls/hr Q12H PEPITO Administration Fentanyl Citrate 2,000 mcg in 100 mls @ 6.175 mls/hr 10/16/20 15:00 10/25/20 18:08 Fentanyl Drip Premix IV 0.5 mcg/kg/hr TITR PEPITO 3.088 mls/hr Administration Protocol 1 MCG/KG/HR Linezolid 600 mg in 300 mls @ 300 mls/hr 10/20/20 12:00 10/26/20 09:58 Zyvox 600mg/300ml IV 10/29/20 22:59 300 mls/hr Q12HR PEPITO Administration Protocol Lansoprazole 30 mg 10/24/20 10:00 10/26/20 09:57 Lansoprazole 30 Mg Solutab FEEDTUBE 30 mg BID PEPITO Administration Metoclopramide HCl 10 mg 10/10/20 21:51 Metoclopramide 10 Mg/2 Ml Inj IV Q6H PRN Nausea And Vomiting Metoprolol Tartrate 100 mg 10/21/20 14:00 10/26/20 13:40 Metoprolol Tartrate 50 Mg Tab PO 100 mg TID PEPITO Administration Multi-Ingred Cream/Lotion/Oil/Oint 1 applic 10/10/20 10:34 Mineral Oil/Petrolatum, White Ophth Oint 3.5 Gm OU Q4HR PRN Dry Eye(s) Ondansetron HCl 4 mg 10/10/20 21:51 Ondansetron 4 Mg/2 Ml Inj IV Q3H PRN Nausea And Vomiting Polyethylene Glycol 17 gm 10/17/20 10:00 10/26/20 09:57 Polyethylene Glycol 3350 17 Gm Powder PO 17 gm QDAY PEPITO Administration Scopolamine 1 each 10/17/20 10:00 10/26/20 10:03 Scopolamine Transdermal Patch 72 Hr TD 1 each Q3D PEPITO Administration Simple Syrup 15 ml 10/10/20 22:18 Simple Syrup 15 Ml FEEDTUBE PRN PRN Hypoglycemia Simple Syrup 30 ml 10/10/20 22:18 Simple Syrup 15 Ml FEEDTUBE PRN PRN Hypoglycemia Sodium Bicarbonate 325 mg 10/10/20 22:18 Sodium Bicarbonate 325 Mg Tab FEEDTUBE PRN PRN For Clogged Feeding Tube Sodium Chloride 10 ml 10/10/20 22:00 10/26/20 10:01 Sodium Chloride 0.9% 10 Ml Flush Syringe IV 10 ml BID PEPITO Administration Sodium Chloride 10 ml 10/10/20 21:51 10/21/20 09:56 Sodium Chloride 0.9% 10 Ml Flush Syringe IV 10 ml PRN PRN Administration LINE FLUSH Nutrition/Malnutrition Assess - Dietary Evaluation Nutrition/Malnutrition Findings: Nutrition Notes Start: 10/11/20 08:38 Freq: Status: Active Protocol: Document 10/25/20 13:13 CW (Rec: 10/25/20 13:28 CW [id number]) Nutrition Notes Initial or Follow up Reassessment Current Diagnosis Acute Kidney Injury,Sepsis, Hypertension,Heart Failure, Respiratory Failure Other Pertinent Diagnosis GIB, pneu, MRSA ME, pulmonary edema Current Diet TF Nepro at 45 ml/hr Labs/Tests Na 150 BUN 57 Cr 1.5 BG 142 Pertinent Medications Miralax Colace Height 6 ft Weight 126.8 kg [place] Body Weight (kg) 80.90 BMI 37.9 Weight change and time frame Weight loss noted, will monitor Weight Status Morbidly Obese Subjective/Other Information F/U for TF tolerance. Pt remains mechanical vented. TF running at goal and is well tolerated. Na elevated, recommend increasing flush. Will await changing TF regimen to better neat protein needs once renal functioning further improves. Percent of energy/protein needs met: 100%/54% Burn Absent Trauma Absent Difficulty In Swallowing Current % PO Negligible Minimum of two criteria No Fluid Accumulation Mild (non-severe) #1 Nutrition Diagnosis Inadequate oral intake Diagnosis Progress(for reassessment Continues documentation) Is patient on ventilator? Yes Is Patient Ambulatory and/or Out of Bed No REE-([facility]-confined to bed) 2584.764 Kcal/Kg value to use for calculation 14 Approximate Energy Requirements Using 1775 kcal/Kg Calculation Used for Recommendations Kcal/kg Additional Notes protein needs: >162g (>2 kgIBW ) fluid needs: 1 ml/kcal or per MD Nutrition Intervention Change Diet Order: Continue TF Nutrition Support: Nepro at 45 ml/hr with a free water flush of 300 ml q4h for hypernatremia, resume flush of 200 ml q4h once hypernatremia resolved Kcal 1,944 Protein (gm) 87 Fluid (mL) 785 Goal #1 Tolerate TF Goal #2 Meet at least 75% of kcal needs via TF as best as possible Anticipated Discharge Needs: unable to determine at this time Follow-Up By: 10/27/20 Additional Comments F/U TF tolerance, renal related labs
--- NOTE | 2020-10-26 15:33 | Progress Note ---
Assessment and Plan SARS CoV2 PCR: negative. 10/10/2020 blood culture: No growth 10/10/2020 ET aspirate culture: Usual respiratory antonio 10/11/2020 urine culture: no growth 10/18/2020 blood culture: No growth today 10/18/2020 tracheal aspirate date: MRSA 10/20/2020 right nare MRSA A/P: 55-year-old male with hypertension, asthma, obesity came into the emergency room after receiving the Covid vaccine and passing out in the car at the emergency room bay. Patient was found to be unresponsive with no pulse, ACLS was initiated: #Sepsis, likely secondary to pneumonia. COVID negative. No fever for 48 hours, leukocytosis is downtrending, noted right nostril copious purulunce on 10/18-10/20 now resolved. ?sinusitis +/- UTI +/-MRSA pneumonia. #Right-sided pneumonia: Possible aspiration during ACLS. Procalcitonin low. Chest x-ray with persistent lung opacities. Tracheal aspirate now with MRSA. Patient with persistent fever. Completed 9 days of cefepime. #Presumed right sided sinusitis: culture +MRSA, left NGT removed #Acute hypoxic respiratory failure: On mechanical ventilation. #MOE: Renally dose antibiotics. Worsening. Renal on board. #Elevated LFTs: Likely from sepsis #Urine tox screen positive for THC #Acute encephalopathy: neurology on board, evaluation in process. #UTI: Urine culture no growth. Repeat UA with worsening pyuria. Completed 9 days of cefepime. #Anoxic brain injury Recs: -Continue linezolid 600 g IV twice a day total 10 days D7 of 10 -May be some element of central fevers given anoxic brain injury. Patient with anoxic brain injury, poor prognosis. Kelin Baumann MD [facility] ([facility] O: [phone] F: [phone] Subjective Date of service: 10/26/20 Principal diagnosis: Cardiac arrest; Septic Shock; Ac. hypoxemic & hypercapnic resp failure; MOE Interval history: Febrile to 100.6 with a white count 13.5 Objective - Exam Narrative Exam: General appearance: Open eyes, intubated Eyes: anicteric sclerae, moist conjunctivae; no lid-lag; PERRLA HENT: Normocephalic, Atraumatic; normal external ears, oropharynx endotracheal tube in place Neck: supple, tracheal midline, no JVD Lungs: Bilateral rhonchi CV: RRR no murmur Abdomen: Soft, nontender Extremities: no edema, no cyanosis Skin: No rash. Psych: No agitated Neuro: Alert does not follow commands - Constitutional Vitals: Vital Signs Temp Pulse Resp BP Pulse Ox 98.3 F 67 16 154/83 100 10/26/20 11:59 10/26/20 13:40 10/26/20 12:55 10/26/20 13:40 10/26/20 12:55 Temperature -Last 24 Hours Temperature 98.3 F Temperature 98.9 F Temperature 100.6 F Temperature 100.3 F Temperature 100.1 F Temperature 98.6 F - Labs CBC & Chem 7: 10/26/20 07:38 10/26/20 07:38 Labs: Abnormal lab results 10/25/20 10/25/20 10/26/20 Range/Units 18:10 18:20 00:20 WBC (4.5-11.0) K/mm3 RBC (3.65-5.03) M/mm3 Hgb (11.8-15.2) gm/dl Hct (35.5-45.6) % POC ABG pCO2 52.3 H (32.0-48.0) mmHg ABG Hemoglobin 11.2 L (12.0-17.5) ABG Chloride 108.0 H (98-107) mmol/L ABG Glucose 167 H (65-95) mg/dL Sodium (137-145) mmol/L Chloride (98-107) mmol/L Carbon Dioxide (22-30) mmol/L BUN (9-20) mg/dL Creatinine (0.8-1.3) mg/dL Glucose (75-100) mg/dL POC Glucose 127 H 108 H (70-105) mg/dL Arterial Blood Glucose 167 H (65-95) mg/dL 10/26/20 10/26/20 10/26/20 Range/Units 06:08 07:38 07:38 WBC 13.5 H (4.5-11.0) K/mm3 RBC 3.37 L (3.65-5.03) M/mm3 Hgb 9.8 L (11.8-15.2) gm/dl Hct 30.0 L (35.5-45.6) % POC ABG pCO2 (32.0-48.0) mmHg ABG Hemoglobin (12.0-17.5) ABG Chloride (98-107) mmol/L ABG Glucose (65-95) mg/dL Sodium 149 H (137-145) mmol/L Chloride 107.6 H (98-107) mmol/L Carbon Dioxide 34 H (22-30) mmol/L BUN 49 H (9-20) mg/dL Creatinine 1.4 H (0.8-1.3) mg/dL Glucose 137 H (75-100) mg/dL POC Glucose 119 H (70-105) mg/dL Arterial Blood Glucose (65-95) mg/dL 10/26/20 Range/Units 11:28 WBC (4.5-11.0) K/mm3 RBC (3.65-5.03) M/mm3 Hgb (11.8-15.2) gm/dl Hct (35.5-45.6) % POC ABG pCO2 (32.0-48.0) mmHg ABG Hemoglobin (12.0-17.5) ABG Chloride (98-107) mmol/L ABG Glucose (65-95) mg/dL Sodium (137-145) mmol/L Chloride (98-107) mmol/L Carbon Dioxide (22-30) mmol/L BUN (9-20) mg/dL Creatinine (0.8-1.3) mg/dL Glucose (75-100) mg/dL POC Glucose 148 H (70-105) mg/dL Arterial Blood Glucose (65-95) mg/dL
[2020-10-26] MEDS: fentaNYL DRIP Premix 2,000 MCG/100 ML BAG IV SCH (21:59)
[2020-10-27] MEDS: levETIRAcetam 500 MG in DEXTROSE 5% IN WATER 100 ML IV SCH ×2 (06:17→18:45)
[2020-10-27] MEDS: hydrALAZINE 25 MG TAB PO SCH ×3 (06:18→22:21)
[2020-10-27 08:00] LABS: Hematocrit 30.9 % (35.5-45.6); Hemoglobin 10.2 gm/dl (11.8-15.2); Mean Corpuscular HGB Conc 33 % (32-34); Mean Corpuscular Volume 89 fl (84-94); Platelet Count 311 K/mm3 (140-440); Red Blood Count 3.46 M/mm3 (3.65-5.03); Red Cell Distribution Width 14.7 % (13.2-15.2)
[2020-10-27 08:18] LABS: BUN/Creatinine Ratio 35; Blood Urea Nitrogen 45 mg/dL (9-20); Calcium 9.1 mg/dL (8.4-10.2); Hemolysis Index 2
[2020-10-27] MEDS: GLYCOPYRROLATE 1 MG TAB PO SCH ×4 (09:44→19:44)
[2020-10-27] MEDS: METOPROLOL TARTRATE 50 MG TAB PO SCH ×4 (09:45→19:44)
--- NOTE | 2020-10-27 09:54 | Progress Note ---
Assessment and Plan 1. Acute kidney injury: Vasomotor MOE in the setting of Cardiac arrest and shock. Renal US negative for hydro. Monitor renal function. BUN and Creatinine level improving. Avoid nephrotoxic agents. Meds dosage based on GFR. 2. FEN: Volume overload, improved, monitor. Hypernatremia, monitor. On Tube feeding and water flushes. Monitor lytes and volume status. 3. Acute hypoxic respiratory failure, POA: 2/2 PNA and CHF. COVID test negative. Intubated on vent. Trach and Peg planned. 4. Sepsis, POA: 2/2 PNA. Abx. 5. NSTEMI type II: Post cardiac arrest EKG showed no acute ischemic changes. Followed by Cards. 6. Acute CHF: Echo showed Normal EF and mild DD. 7. S/p Cardiac arrest. 8. A.fib / A.flutter: Metoprolol. 9. Anoxic encephalopathy: Seen by Neuro. 10. GI bleed: Seen by GI. 11. Elevated Transaminases: Improved. 12. HTN: Monitor. Adjust meds as needed. Subjective: Patient was seen and examined at the bedside. Objective: General appearance: well-developed, appears stated age, intubated, on vent HEENT: ATNC, pupils equal Neck: trachea midline Respiratory: ctab Heart: regular, S1S2, no murmur Gastrointestinal: soft, normoactive bowel sounds, not tender Integumentary: no rash, warm and dry Ext: trace extremity edema Neurologic: not responding Musculoskeletal: no obvious deformity Subjective Date of service: 10/27/20 Principal diagnosis: Cardiac arrest; Septic Shock; Ac. hypoxemic & hypercapnic resp failure; MOE Objective - Vital Signs Vital signs: Vital Signs - 12hr 10/26/20 10/26/20 10/26/20 22:00 22:31 23:00 Temperature Pulse Rate 75 65 64 Pulse Rate [ From Monitor] Respiratory 18 18 17 Rate Blood Pressure 150/87 113/58 114/62 O2 Sat by Pulse 100 99 99 Oximetry 10/26/20 10/27/20 10/27/20 23:31 00:00 00:30 Temperature 99.6 F Pulse Rate 65 66 66 Pulse Rate [ 64 From Monitor] Respiratory 19 17 17 Rate Blood Pressure 144/85 125/61 129/66 O2 Sat by Pulse 100 99 98 Oximetry 10/27/20 10/27/20 10/27/20 00:59 01:01 01:30 Temperature Pulse Rate 64 66 69 Pulse Rate [ From Monitor] Respiratory 17 17 Rate Blood Pressure 130/73 130/73 111/63 O2 Sat by Pulse 99 99 99 Oximetry 10/27/20 10/27/20 10/27/20 02:00 02:31 03:01 Temperature Pulse Rate 66 64 63 Pulse Rate [ From Monitor] Respiratory 14 16 14 Rate Blood Pressure 122/62 122/62 138/75 O2 Sat by Pulse 99 100 100 Oximetry 10/27/20 10/27/20 10/27/20 03:30 04:00 04:31 Temperature 99.3 F Pulse Rate 68 71 70 Pulse Rate [ 68 From Monitor] Respiratory 17 18 18 Rate Blood Pressure 145/82 145/89 157/86 O2 Sat by Pulse 100 99 100 Oximetry 10/27/20 10/27/20 10/27/20 04:50 06:18 07:51 Temperature 99.0 F Pulse Rate 71 72 Pulse Rate [ From Monitor] Respiratory Rate Blood Pressure 138/79 154/84 O2 Sat by Pulse 100 Oximetry 10/27/20 08:00 Temperature Pulse Rate 72 Pulse Rate [ From Monitor] Respiratory 16 Rate Blood Pressure 132/76 O2 Sat by Pulse 98 Oximetry - Lab 10/27/20 07:30 10/27/20 07:30 Most recent lab results ABG pH 7.424 (7.320-7.450) 10/25/20 18:10 ABG pCO2 55.5 mm Hg 10/16/20 05:10 ABG pO2 104.5 mm Hg (80.0-90.0) H 10/16/20 05:10 ABG HCO3 35.1 mmol/L (20.0-26.0) H 10/16/20 05:10 ABG O2 Saturation 97.4 (0-100) 10/25/20 18:10 Calcium 9.1 mg/dL (8.4-10.2) 10/27/20 07:30 Phosphorus 5.20 mg/dL (2.5-4.5) H D 10/17/20 03:32 Magnesium 2.30 mg/dL (1.7-2.3) 10/17/20 03:32 Urine Creatinine 93.7 mg/dL (0.1-20.0) H 10/19/20 13:14 Urine Sodium 25 mmol/L 10/19/20 13:14 Medications & Allergies - Medications Allergies/Adverse Reactions: Allergies No Known Allergies Allergy (Unverified 07/06/13 15:19) Home Medications: Home Medications Medication Instructions Recorded Confirmed Last Taken Type Colchicine [Colcrys] QDAY 10/21/20 Unknown History Eplerenone [Inspra] 50 mg PO 10/21/20 Unknown History HYDROcodone/APAP 5-325 [[place] 1 each PO Q8HR PRN 10/21/20 10/21/20 Unknown History 5/325] Leflunomide [Arava] 20 mg PO QDAY 10/21/20 10/21/20 3 Weeks Ago History ~09/30/20 20 mg Rosuvastatin (Nf) [Crestor] 20 mg PO QHS 10/21/20 10/21/20 3 Weeks Ago History ~09/30/20 20 mg Torsemide [Demadex] 20 mg PO 10/21/20 Unknown History allopurinoL [Zyloprim] QDAY 10/21/20 Unknown History amLODIPine 5 mg PO BID 10/21/20 10/21/20 3 Weeks Ago History ~09/30/20 5 mg carvediloL [Coreg] 25 mg PO QDAY 10/21/20 10/21/20 3 Weeks Ago History ~09/30/20 25 mg metFORMIN [Glucophage] 500 mg PO QDAY 10/21/20 10/21/20 Unknown History Active Medications: Generic Name Dose Route Start Last Admin Trade Name Freq PRN Reason Stop Dose Admin Acetaminophen 650 mg 10/10/20 21:51 10/20/20 09:11 Acetaminophen 325 Mg Tab PO 650 mg Q4H PRN Administration Pain MILD(1-3)/Fever >100.5/S[place]OR Acetaminophen 650 mg 10/11/20 11:24 10/17/20 17:16 Acetaminophen 650 Mg Rect Supp [place] 650 mg Q6H PRN Administration Fever >101 Albuterol 2.5 mg 10/11/20 13:12 Albuterol 2.5 Mg/3 Ml Nebu IH Q6HRT PRN Shortness Of Breath Amlodipine Besylate 10 mg 10/25/20 13:00 10/26/20 10:05 Amlodipine 10 Mg Tab PO 10 mg QDAY PEPITO Administration Lipase/Protease/Amylase 1 each 10/10/20 22:18 Lipase 10,500/Protease 25,000/Amylase 43,750 (Units) Dr Cap FEEDTUBE PRN PRN For Clogged Feeding Tube Clonidine HCl 0.3 mg 10/14/20 15:00 10/21/20 14:05 Clonidine Tts 0.3 Mg/24 Hr Patch TD 0.3 mg Fr PEPITO Administration Docusate Sodium 100 mg 10/16/20 22:00 10/26/20 21:50 Docusate Sodium 100 Mg/10 Ml Oral Liqd PO 100 mg BID PEPITO Administration Fentanyl 50 mcg 10/16/20 14:10 10/23/20 10:53 Fentanyl 100 Mcg/2 Ml Inj IV 50 mcg Q10MIN PRN Administration ANALGESIA Glycopyrrolate 2 mg 10/19/20 14:00 10/27/20 09:44 Glycopyrrolate 1 Mg Tab PO Not Given Q6H PEPITO Heparin Sodium (Porcine) 5,000 unit 10/11/20 22:00 10/26/20 21:52 Heparin 5,000 Unit/1 Ml Vial SUB-Q 5,000 unit Q12HR PEPITO Administration Hydralazine HCl 5 mg 10/15/20 20:25 10/24/20 08:20 Hydralazine 20 Mg/1 Ml Inj IV 5 mg Q6H PRN Administration Hypertension Hydralazine HCl 100 mg 10/24/20 09:30 10/27/20 06:18 Hydralazine 25 Mg Tab PO Not Given Q8HR [facility] Hydrophilic Ointment 1 applic 10/10/20 10:34 Lip Therapy Vaseline TP Q2HR PRN Dry Lips Levetiracetam 500 mg/ Dextrose 105 mls @ 400 mls/hr 10/13/20 18:00 10/27/20 06:17 IV 400 mls/hr Q12H PEPITO Administration Fentanyl Citrate 2,000 mcg in 100 mls @ 6.175 mls/hr 10/16/20 15:00 10/26/20 21:59 Fentanyl Drip Premix IV 0.5 mcg/kg/hr TITR PEPITO 3.088 mls/hr Administration Protocol 1 MCG/KG/HR Linezolid 600 mg in 300 mls @ 300 mls/hr 10/20/20 12:00 10/26/20 21:51 Zyvox 600mg/300ml IV 10/29/20 22:59 300 mls/hr Q12HR PEPITO Administration Protocol Lansoprazole 30 mg 10/24/20 10:00 10/26/20 21:50 Lansoprazole 30 Mg Solutab FEEDTUBE 30 mg BID PEPITO Administration Metoclopramide HCl 10 mg 10/10/20 21:51 Metoclopramide 10 Mg/2 Ml Inj IV Q6H PRN Nausea And Vomiting Metoprolol Tartrate 100 mg 10/21/20 14:00 10/27/20 09:45 Metoprolol Tartrate 50 Mg Tab PO Not Given TID PEPITO Multi-Ingred Cream/Lotion/Oil/Oint 1 applic 10/10/20 10:34 Mineral Oil/Petrolatum, White Ophth Oint 3.5 Gm OU Q4HR PRN Dry Eye(s) Ondansetron HCl 4 mg 10/10/20 21:51 Ondansetron 4 Mg/2 Ml Inj IV Q3H PRN Nausea And Vomiting Polyethylene Glycol 17 gm 10/17/20 10:00 10/26/20 09:57 Polyethylene Glycol 3350 17 Gm Powder PO 17 gm QDAY PEPITO Administration Scopolamine 1 each 10/17/20 10:00 10/26/20 10:03 Scopolamine Transdermal Patch 72 Hr TD 1 each Q3D PEPITO Administration Simple Syrup 15 ml 10/10/20 22:18 Simple Syrup 15 Ml FEEDTUBE PRN PRN Hypoglycemia Simple Syrup 30 ml 10/10/20 22:18 Simple Syrup 15 Ml FEEDTUBE PRN PRN Hypoglycemia Sodium Bicarbonate 325 mg 10/10/20 22:18 Sodium Bicarbonate 325 Mg Tab FEEDTUBE PRN PRN For Clogged Feeding Tube Sodium Chloride 10 ml 10/10/20 22:00 10/27/20 09:45 Sodium Chloride 0.9% 10 Ml Flush Syringe IV Not Given BID PEPITO Sodium Chloride 10 ml 10/10/20 21:51 10/21/20 09:56 Sodium Chloride 0.9% 10 Ml Flush Syringe IV 10 ml PRN PRN Administration LINE FLUSH
[2020-10-27] MEDS: amLODIPine 10 MG TAB PO SCH (10:13)
[2020-10-27] MEDS: DOCUSATE SODIUM 100 MG/10 ML ORAL LIQD PO SCH ×2 (10:13→22:21)
[2020-10-27] MEDS: LANSOPRAZOLE 30 MG SOLUTAB FEEDTUBE SCH ×2 (10:14→22:21)
[2020-10-27] MEDS: HEPARIN 5,000 UNIT/1 ML VIAL SUB-Q SCH (10:14)
[2020-10-27] MEDS: POLYETHYLENE GLYCOL 3350 17 GM POWDER PO SCH (10:14)
[2020-10-27] MEDS: LINEZOLID 600 MG/300 ML BAG IV SCH ×2 (10:47→22:22)
--- NOTE | 2020-10-27 11:52 | Progress Note ---
Assessment and Plan SARS CoV2 PCR: negative. 10/10/2020 blood culture: No growth 10/10/2020 ET aspirate culture: Usual respiratory antonio 10/11/2020 urine culture: no growth 10/18/2020 blood culture: No growth today 10/18/2020 tracheal aspirate date: MRSA 10/20/2020 right nare MRSA A/P: 55-year-old male with hypertension, asthma, obesity came into the emergency room after receiving the Covid vaccine and passing out in the car at the emergency room bay. Patient was found to be unresponsive with no pulse, ACLS was initiated: #Sepsis, likely secondary to pneumonia. COVID negative. No fever for 48 hours, leukocytosis is downtrending, noted right nostril copious purulunce on 10/18-10/20 now resolved. ?sinusitis +/- UTI +/-MRSA pneumonia. #Right-sided pneumonia: Possible aspiration during ACLS. Procalcitonin low. Chest x-ray with persistent lung opacities. Tracheal aspirate now with MRSA. Patient with persistent fever. Completed 9 days of cefepime. #Presumed right sided sinusitis: culture +MRSA, left NGT removed #Acute hypoxic respiratory failure: On mechanical ventilation. #MOE: Renally dose antibiotics. Worsening. Renal on board. #Elevated LFTs: Likely from sepsis #Urine tox screen positive for THC #Acute encephalopathy: neurology on board, evaluation in process. #UTI: Urine culture no growth. Repeat UA with worsening pyuria. Completed 9 days of cefepime. #Anoxic brain injury Recs: -Continue linezolid 600 g IV twice a day total 10 days D8 of 10 -May be some element of central fevers given anoxic brain injury. Patient with anoxic brain injury, poor prognosis. Kelin Baumann MD [facility] O: [phone] F: [phone] Subjective Date of service: 10/27/20 Principal diagnosis: Cardiac arrest; Septic Shock; Ac. hypoxemic & hypercapnic resp failure; MOE Interval history: Afebrile, normal white count. Remains on the vent. Objective - Exam Narrative Exam: General appearance: Open eyes, intubated Eyes: anicteric sclerae, moist conjunctivae; no lid-lag; PERRLA HENT: Normocephalic, Atraumatic; normal external ears, oropharynx endotracheal tube in place Neck: supple, tracheal midline, no JVD Lungs: Bilateral rhonchi CV: RRR no murmur Abdomen: Soft, nontender Extremities: no edema, no cyanosis Skin: No rash. Psych: No agitated Neuro: Alert does not follow commands - Constitutional Vitals: Vital Signs Temp Pulse Resp BP Pulse Ox 99.0 F 73 15 166/99 99 10/27/20 07:51 10/27/20 10:00 10/27/20 10:00 10/27/20 10:00 10/27/20 10:00 Temperature -Last 24 Hours Temperature 99.0 F Temperature 99.3 F Temperature 99.6 F Temperature 98.7 F Temperature 98.2 F Temperature 98.3 F - Labs CBC & Chem 7: 10/27/20 07:30 10/27/20 07:30 Labs: Abnormal lab results 10/26/20 10/26/20 10/26/20 Range/Units 11:28 18:17 23:37 RBC (3.65-5.03) M/mm3 Hgb (11.8-15.2) gm/dl Hct (35.5-45.6) % Sodium (137-145) mmol/L Carbon Dioxide (22-30) mmol/L BUN (9-20) mg/dL Glucose (75-100) mg/dL POC Glucose 148 H 121 H 152 H (70-105) mg/dL 10/27/20 10/27/20 10/27/20 Range/Units 05:08 07:30 07:30 RBC 3.46 L (3.65-5.03) M/mm3 Hgb 10.2 L (11.8-15.2) gm/dl Hct 30.9 L (35.5-45.6) % Sodium 146 H (137-145) mmol/L Carbon Dioxide 34 H (22-30) mmol/L BUN 45 H (9-20) mg/dL Glucose 131 H (75-100) mg/dL POC Glucose 120 H (70-105) mg/dL
[2020-10-27] MEDS: hydrALAZINE 20 MG/1 ML INJ IV PRN ×2 (12:34→18:44)
--- NOTE | 2020-10-27 13:15 | Progress Note ---
Assessment and Plan he pt is a 55-year-old -[place] male with a past medical history of hypertension, asthma, obesity. He is intubated and sedated on evaluation and thus HPI is obtained per the chart. Pt presented to ED after Covid vaccine and passed out with seizure like activity in the car at the emergency room bay. Patient was found to be unresponsive and with no pulse. ACLS protocol was initiated from the car to the emergency room with continued ACLS protocol. Patient was intubated and after couple of epi ROSC obtained. Central line was p laced and patient was also started on pressors. Patient did not have any fever shortness of breath or cough or any symptoms prior to the COVID-19 vaccination. Patient coded twice in the emergency room. One before the imaging studies and once after the imaging studies. Pt remains intubated, intermittently sedated, intermittent blinking of eyes to painful stimulus (sternal rub) noted. Neurology f/u noted - pt with suspected anoxic brain injury. Brain MRI shows diffuse restricted diffusion and increased T2 signal in the cerebral cortex, findings can be seen in setting of anoxic brain injury and/or status epilepticus. Per primary team, pt is not tolerating weaning from ventilator. Pt is being considered for Trach & Peg. Pt is moderate cardiovascular risk patient going for moderate risk procedure. no cardiac contraindications for trach and peg. tte reviewed - EF 55-60%, mod LVH, mild diastolic dysfunction. Pt is intubated, unresponsive. No sedation. Tele reviewed: SR 71. No events. Renal indices improved. Continue present cardiac management. Agree with Amlodipine, Clonidine patch and Hydralazine 50mg PO TID. Continue Metoprolol 100mg TID. No systemic AC at this time in regards to paroxysmal AFib/AFlutter given h/o GI bleeding while on heparin gtt. GI team is following. Per primary team, pt is not tolerating weaning from ventilator. Pt is being considered for Trach & Peg. Pt is moderate cardiovascular risk patient going for moderate risk procedure. no cardiac contraindications for trach and peg. Continue supportive measures. Overall guarded prognosis. The patient has been seen in conjunction with Dr. Mercedes who agrees with the assessment and plan of care. - Patient Problems (1) AMS (altered mental status) Current Visit: Yes Status: Acute (2) Cardiopulmonary arrest with successful resuscitation Current Visit: Yes Status: Acute (3) Acute respiratory failure Current Visit: Yes Status: Acute Qualifiers: Respiratory failure complication: hypoxia and hypercapnia Qualified Code(s): J96.01 - Acute respiratory failure with hypoxia; J96.02 - Acute respiratory failure with hypercapnia (4) Bilateral pneumonia Current Visit: Yes Status: Acute (5) Sepsis with hypotension Current Visit: Yes Status: Acute (6) Person under investigation for COVID-19 Current Visit: Yes Status: Ruled-out (7) Seizure Current Visit: Yes Status: Suspected (8) NSTEMI (non-ST elevated myocardial infarction) Current Visit: Yes Status: Acute (9) MOE (acute kidney injury) Current Visit: Yes Status: Acute (10) GI bleed Current Visit: Yes Status: Acute (11) Acute heart failure with preserved ejection fraction (HFpEF) Current Visit: Yes Status: Acute (12) Hypernatremia Current Visit: Yes Status: Acute (13) Atrial fibrillation and flutter Current Visit: Yes Status: Acute (14) Anemia Current Visit: Yes Status: Acute Subjective Date of service: 10/27/20 Principal diagnosis: Cardiac arrest; Septic Shock; Ac. hypoxemic & hypercapnic resp failure; MOE Interval history: Pt is intubated, unresponsive. Tele reviewed: SR 71. No events. Objective Last Vital Signs Temp 98.2 F 10/27/20 12:21 Pulse 79 10/27/20 12:37 Resp 17 10/27/20 12:37 BP 181/104 10/27/20 12:37 Pulse Ox 100 10/27/20 12:37 - Physical Examination General: Other (intubated) HEENT: Positive: Normocephaly Neck: Positive: neck supple, trachea midline Cardiac: Positive: Reg Rate and Rhythm, S1/S2 Lungs: Positive: Ventilated Respirations Neuro: Positive: Other (intubated) Abdomen: Positive: Soft, Active Bowel Sounds Skin: Negative: Rash Extremities: Present: lower extr. pulses. Absent: edema - Labs and Meds CBC 10/27/20 Range/Units 07:30 WBC 11.0 (4.5-11.0) K/mm3 RBC 3.46 L (3.65-5.03) M/mm3 Hgb 10.2 L (11.8-15.2) gm/dl Hct 30.9 L (35.5-45.6) % Plt Count 311 (140-440) K/mm3 Comprehensive Metabolic Panel 10/27/20 Range/Units 07:30 Sodium 146 H (137-145) mmol/L Potassium 4.3 (3.6-5.0) mmol/L Chloride 105.1 (98-107) mmol/L Carbon Dioxide 34 H (22-30) mmol/L BUN 45 H (9-20) mg/dL Creatinine 1.3 (0.8-1.3) mg/dL Glucose 131 H (75-100) mg/dL Calcium 9.1 (8.4-10.2) mg/dL - Imaging and Cardiology EKG: report reviewed, image reviewed Echo: report reviewed (10/10/2020 - mod LVH, EF 55-60%, mild diastolic dysfunction) - Telemetry EKG Rhythm: Sinus Rhythm - EKG Sinus rhythms and dysrhythmias: sinus rhythm Repolarization changes or abnormalities: ST suggestive of injury, Q-T interval prolongation - Allied health notes Allied health notes reviewed: nursing
[2020-10-27] MEDS ORDERED: ROCURONIUM 50 MG/5 ML INJ IV ONE ×2 (15:15→16:20)
[2020-10-27] MEDS ORDERED: LIDOCAINE MPF (2%) 20 MG/1 ML VIAL 5 ML ONE (15:15)
[2020-10-27] MEDS ORDERED: propofoL 200 MG/20 ML VIAL IV ONE (15:16)
[2020-10-27] MEDS ORDERED: fentaNYL 100 MCG/2 ML INJ ONE (15:16)
--- NOTE | 2020-10-27 16:06 | Anesthesia Day of Surgery ---
Anesthesia Day of Surgery - Day of Surgery Patient Examined: Yes Patient H&P Reviewed: Yes Patient is NPO: Yes
--- NOTE | 2020-10-27 16:06 | Anesthesia Consultation ---
Anesthesia Consult and Med Hx Date of service: 10/27/20 - Airway Intubation Access Assessment: Possibly Difficult (oETT in situ) - Pulmonary Exam CTA: No - Cardiac Exam Cardiac Exam: RRR - Pre-Operative Health Status ASA Pre-Surgery Classification: ASA4 Proposed Anesthetic Plan: General - Pulmonary Hx Asthma: Yes Hx Respiratory Symptoms: Yes (vent dependent resp failure) Hx Pneumonia: Yes (COVID neg this admission) - Cardiovascular System Hx Hypertension: Yes (previous septic/cardiogenic shock; resolved) Hx Heart Attack/AMI: Yes (type 2 NSTEMI; multiple cardiac arrests earlier this admission) Hx Cardia Arrhythmia: Yes (a-fib/flutter) Hx Pacemaker: No Hx Internal Defibrillator: No - Central Nervous System CVA: Yes (likely anoxic brain injury) - Endocrine Hx Renal Disease: Yes (MOE) - Hematic Hx Anemia: Yes - Other Systems Hx Obesity: Yes (BMI 37) - Additional Comments Anesthesia Medical History Comments: scheduled for perc PEG, open trach in OR.
[2020-10-27] MEDS ORDERED: ceFAZolin 1 GM VIAL ONE (16:17)
[2020-10-27] MEDS ORDERED: BUPIVACAINE/PF (0.25%) 2.5 MG/ML 30 ML VIAL INFILTRATI ONE (16:31)
[2020-10-27] MEDS ORDERED: LIDOCAINE (1%) 10 MG/1 ML VIAL 20 ML MDV ONE (16:31)
[2020-10-27] MEDS ORDERED: LIDOCAINE 2%/EPINEPHRINE 1:100,000 VIAL (20 ML) INFILTRATI ONE (16:38)
[2020-10-27] MEDS ORDERED: SODIUM CHLORIDE 0.9% 1000 ML 1,000 ML ONE (16:40)
--- NOTE | 2020-10-27 17:39 | Progress Note ---
<JOIJOISee - Last Filed: 10/27/20 18:21> Assessment and Plan Assessment and plan: This is a 55-year-old male with hypertension, asthma, obesity who was admitted on 10/10 after cardiac arrest x2, sepsis, right-sided pneumonia, NSTEMI type II, acute heart failure, acute hypoxic respiratory failure, acute kidney injury and anoxic brain injury. Sepsis s/p multiple Cardiac Arrests Right-sided pneumonia MRSA in tracheal aspirate NSTEMI type II Acute heart failure Hypernatremia Afib/Alutter Leukocytosis Acute hypoxic respiratory failure Acute kidney injury Transaminitis HTN Obesity -Infectious disease, CCM, GI, nephrology, cardiology, surgery consulted, appreciate recommendations -Antibiotic therapy -10/18 recultured (blood/sputum/nasal discharge and urinalysis), tracheal aspirate with MRSA -Linezolid -Continue antihypertensive regimen (changed to p.o.), titrate as needed -s/p IV amiodarone for A. fib/a flutter now on p.o. beta-shital -Trend CBC, BMP, LFT -Continue mechanical ventilation, wean as tolerated, VAP bundle -Avoid nephrotoxic medications, strict intake and output, renal ultrasound shows no obstruction -10/10 echocardiogram shows left internal systolic function normal, moderate concentric left ventricle hypertrophy, mild to side diastolic dysfunction, LVEF 55 to 60% with no pericardial effusion -Bilateral Doppler ultrasound negative for DVT/SVT which shows bilateral popliteal cysts -MRI Brain shows restricted diffusion and increased T2 signal cerebral cortex which can be seen in the setting of anoxic brain injury and/ or status epilepticus. -Repeat EEG pending GI/DVT prophylaxis: SCDs to bilateral lower extremities while in bed, PPI, Heparin subq Dispo: ICU/ possible LTACH The high probability of a clinically significant, sudden or life threatening deterioration of the [multi] system(s) required my full and direct attention, intervention and personal management. The aggregate critical care time was [35] minutes. This time is in addition to time spent performing reported procedures but includes the following: [x] Data Review and interpretation [x] Patient assessment and monitoring of vital signs [x] Documentation [x] Medication orders and management History Interval history: This is a 55-year-old male with hypertension, asthma, obesity in the emergency by presented to the emergency department on 10/10 after receiving a Covid vaccine being found unresponsive in his car in the emergency room bay with no pulse and ACLS protocol was initiated from his car to emergency room #21 where it was continued. Patient was intubated after ROSC was achieved and a central line was placed and the patient was initiated on pressors. In the emergency room patient seems to have seizure-like activity and then collapsed and was unre sponsive with no palpable pulse and ACLS was again initiated patient with achievement of ROSC. Patient again coded with ACLS protocol in the CT room. Upon arrival to the ICU patient again coded and ROSC was achieved and he was placed on epinephrine, Lasix, heparin and sodium bicarbonate drip and sedated with propofol. An NG tube was placed, A-line was placed. Patient was admitted to the hospitalist service with consult to CCM, nephrology, infectious disease and cardiology. 10/11: Patient COVID-19 PCR is pending and he remains on mechanical ventilation, examination on assist control 400/30/12/0.95. Patient is scheduled for an echocardiogram and we will obtain bilateral lower extremity Doppler ultrasound given elevated D-dimer. Patient was supposed to have a CTA chest when he coded yesterday. We will begin trickle feeding. This morning patient was on a heparin drip and was noted to have bloody drainage from his NG tube. Heparin drip was discontinued. 10/12: Patient remains on propofol and Lasix drip at the time my examination and he is on assist control 400/25/12/0.60. Patient is hypokalemic this morning which was repleted. Nephrology discontinued Lasix drip and Diamox. Patient is hypertensive and has been started on hydralazine and beta-shital IV. He has been titrated off his vasopressors since yesterday. Vancomycin discontinued. Patient is currently on cefepime and azithromycin. 10/13: Sedation vacation attempted today and patient was not responsive to verbal or painful stimuli, does not track or focus or follow commands. This morning the patient has some respiratory alkalosis on ABG, hypernatremia and metabolic alkalosis on BMP. His kidney functions has improved slightly. Patient still has leukocytosis and infectious disease was like to continue antibiotic therapy. GI evaluated the patient yesterday and started the patient on PPI does not plan to scope at this time. At the time my examination patient assist-control 400/20/12/0.40 and sedated on propofol at 20. 4/2: GI has recommended a CT abdomen since there is increased output from OG tube and an MRI brain without contrast has been ordered per neurology recommendations. EEG is pending and the patient has been started on Keppra per neurology.. Nutrition has been consulted for initiation of parenteral nutrition. Patient remains sedated with propofol and his hypernatremia, leukocytosis, acute kidney injury and metabolic alkalosis is improving. Patient has hypokalemia today which was repleted. At the time of my examination patient was on assist control 400/14/10/0.40 and CCM has dropped his rate to 12 and PEEP to 8. We have labs ordered for a.m. He was given a clonidine patch g iven persistent hypertension and he remains on D5 water per nephrology. 10/15: This morning patient was started to have a low-grade fever and he will continue antibiotic therapy per infectious disease. He will remove Tuttle catheter today and place a condom cath. Patient's renal function is worsening with a BUN/creatinine of 57/2.4 today and he has hyperphosphatemia at 5.2. This morning the time my examination patient is sedated on fentanyl and has TPN infusing. He is on assist control 400/12/8/0.35. Per GI we will start trial of tube feedings initiation has been reconsulted for orders. 10/18: Patient was febrile overnight and infectious disease has recultured (blood/sputum/right nostril culture) and sent in urinalysis. Cefepime was extended due to high fever and was started on vancomycin. Tube feeding is at goal and we will discontinue his parenteral nutrition. Patient is unable to obtain his MRI due to increased hypoxia and nasal secretions. He will be started on CPAP trials today. This time I examination patient was sedated on fentanyl and had PPN running at 42. His renal function tests have worsened and now has hyperchloremia. Hypernatremia has resolved. 10/19: Patient's T-max was 100.2 and he was pancultured yesterday, remains on antibiotic therapy and still has copious drainage from his nostrils. Patient still has leukocytosis however his/creatinine improved slightly to 3.1 from 3.3. Patient's urinalysis from yesterday shows pyuria. Patient's tracheal aspirate from yesterday grew Staph aureus. Patient is on cefepime and vancomycin. 4/8: This morning at the time my examination patient was CPAP trial of 6 and his T-max was 100.9. Patient sedated on fentanyl at 2 just received IV push fentanyl for tachycardia. Today his creatinine is 2.8 from 3.1 yesterday. Infectious disease has stopped cefepime and vancomycin and started linezolid and MRSA PCR is pending. Today removed his NG tube and replaced it with OG tube. We will keep the patient normal saline at 75 mL's per hour for 3 L. Patient developed A. fib/a flutter overnight and cardiology has increased his Lopressor and IV amiodarone. We requested neurology evaluation today. 10/21: Cardiology we will increase Lopressor to 3 times daily and discontinue his amiodarone drip. Infectious disease would like a sinus CT when feasible however patient did have a moment of desatting earlier this week when we attempted MRI brain. And again yesterday when we attempted a "trial run" with positioning at bedside Patient is on linezolid for 10 days per ID. 10/22/20; patient was seen and evaluated this morning, patient had low-grade fever overnight. Patient is on Lopressor per cardiology recommendation. Patient did not follow commands, no improvement in mental status. Evaluated by neurology yesterday and neurology once MRI or CAT scan but cannot be done because patient desats when he lies flat. Patient is on linezolid per ID recommendation. Continue NG tube feeding. Continue with Keppra. Patient is on assist control with PEEP of 6. Management plan was discussed with his yes terday. 10/23/2020; patient is on Zyvox for positive MRSA from tracheal aspirate and nasal secretion culture. Patient's mentation did not improve and does not follow commands. He was reevaluated by neurology and recommend MRI once patient is able to tolerate. MRI could not be done, CT scan could not be done because the patient could not lie flat. Clinically patient looks like she has anoxic en cephalopathy. Patient is on NG tube feeding and on mechanical ventilation. Patient is on Keppra. Management plan was discussed with his . 10/24: This morning the patient is on AC TV 400,R 16, Peep 6 and FiO2 of 30% and sedated on 1mcg of Fentayl. He is hypernatremic and his kidney function tests have slightly improved. RN will attempt to obtain MRI Brain today since the patient was able to tolerate a "trial run" of being flat. [facility] plans to resume CPAP trials once MRI obtained. 10/25: This morning the time of examination patient was on assist control tidal volume 400, rate 16, PEEP 6, FiO2 30% and he is currently on CPAP. His MRI brain finding is consistent with status epilepticus or anoxic brain injury. Patient is EEG pending. No acute overnight events reported. 10/26: Patient has been on a CPAP trial 14/6 which she has been tolerating. Surgery was consulted for trach/PEG. Patient's hypernatremia and hyperchloremia slightly better as well as his kidney functions. He has received cardiac clearance for his trach and PEG. No acute events reported overnight. 10/27: At the time my examination patient was on CPAP trial 15/6 and 30% FiO2. Patient's electrolyte abnormalities were improving and sources kidney function. His T-max overnight was 99.3 and he remains on linezolid. No acute events reported overnight. Hospitalist Physical - Constitutional Vitals: Temp Pulse Resp BP Pulse Ox 98.2 F 79 19 140/79 100 10/27/20 12:21 10/27/20 13:30 10/27/20 13:30 10/27/20 13:30 10/27/20 13:30 General appearance: Present: no acute distress, well-nourished, other (Resting comfortably on mechanical ventilation, opens eye spontanously) - EENT Eyes: Present: PERRL ENT: ulcerations - Neck Neck: Present: normal ROM - Respiratory Respiratory effort: normal Respiratory: bilateral: diminished - Cardiovascular Rhythm: regular Heart Sounds: Present: S1 & S2. Absent: systolic murmur, diastolic murmur - Extremities Extremities: no ischemia, pulses intact, pulses symmetrical, No edema, normal temperature, normal color, Full ROM Peripheral Pulses: within normal limits - Abdominal General gastrointestinal: soft, non-tender, non-distended, normal bowel sounds - Integumentary Integumentary: Present: warm, dry - Psychiatric Psychiatric: other (Opens eyes spontaneously move all extremities spontaneously, does not follow commands does not track or focus) - Neurologic Neurologic: moves all extremities - Allied Health Allied health notes reviewed: nursing, RT, social work HEART Score - HEART Score EKG: Non-specific Age: 45-65 Troponin: Troponin T 0.125 ng/mL (0.00-0.029) H* D 10/12/20 04:00 Troponin: 1-3x normal limit - Critical Actions Critical Actions: 4-6 pts:12-16.6% risk of adverse cardiac event. Should be admitted Results - Labs CBC & Chem 7: 10/27/20 07:30 10/27/20 07:30 Labs: Laboratory Last Values WBC 11.0 K/mm3 (4.5-11.0) 10/27/20 07:30 RBC 3.46 M/mm3 (3.65-5.03) L 10/27/20 07:30 Hgb 10.2 gm/dl (11.8-15.2) L 10/27/20 07:30 Hct 30.9 % (35.5-45.6) L 10/27/20 07:30 MCV 89 fl (84-94) 10/27/20 07:30 MCH 29 pg (28-32) 10/27/20 07:30 MCHC 33 % (32-34) 10/27/20 07:30 RDW 14.7 % (13.2-15.2) 10/27/20 07:30 Plt Count 311 K/mm3 (140-440) 10/27/20 07:30 Lymph % (Auto) 4.2 % (13.4-35.0) L 10/19/20 04:55 [place] % (Auto) 11.9 % (0.0-7.3) H 10/19/20 04:55 Eos % (Auto) 1.6 % (0.0-4.3) 10/19/20 04:55 Baso % (Auto) 0.3 % (0.0-1.8) 10/19/20 04:55 Lymph # (Auto) 0.6 K/mm3 (1.2-5.4) L 10/19/20 04:55 [place] # (Auto) 1.8 K/mm3 (0.0-0.8) H 10/19/20 04:55 Eos # (Auto) 0.2 K/mm3 (0.0-0.4) 10/19/20 04:55 Baso # (Auto) 0.1 K/mm3 (0.0-0.1) 10/19/20 04:55 Add Manual Diff Complete 10/10/20 18:18 Total Counted 100 10/10/20 18:18 Seg Neutrophils % 82.0 % (40.0-70.0) H 10/19/20 04:55 Seg Neuts % (Manual) 60.0 % (40.0-70.0) 10/10/20 18:18 Band Neutrophils % 27.0 % 10/10/20 18:18 Lymphocytes % (Manual) 4.0 % (13.4-35.0) L 10/10/20 18:18 Monocytes % (Manual) 9.0 % (0.0-7.3) H 10/10/20 18:18 Eosinophils % (Manual) 4.0 % (0.0-4.3) 10/10/20 10:48 Metamyelocytes % 1.0 % 10/10/20 10:48 Nucleated RBC % Not Reportable 10/10/20 18:18 Seg Neutrophils # 12.4 K/mm3 (1.8-7.7) H 10/19/20 04:55 Seg Neutrophils # Man 13.8 K/mm3 (1.8-7.7) H 10/10/20 18:18 Band Neutrophils # 6.2 K/mm3 10/10/20 18:18 Lymphocytes # (Manual) 0.9 K/mm3 (1.2-5.4) L 10/10/20 18:18 Abs React Lymphs (Man) 0.0 K/mm3 10/10/20 18:18 Monocytes # (Manual) 2.1 K/mm3 (0.0-0.8) H 10/10/20 18:18 Eosinophils # (Manual) 0.0 K/mm3 (0.0-0.4) 10/10/20 18:18 Basophils # (Manual) 0.0 K/mm3 (0.0-0.1) 10/10/20 18:18 Metamyelocytes # 0.0 K/mm3 10/10/20 18:18 Myelocytes # 0.0 K/mm3 10/10/20 18:18 Promyelocytes # 0.0 K/mm3 10/10/20 18:18 Blast Cells # 0.0 K/mm3 10/10/20 18:18 WBC Morphology Not Reportable 10/10/20 18:18 Hypersegmented Neuts Not Reportable 10/10/20 18:18 Hyposegmented Neuts Not Reportable 10/10/20 18:18 Hypogranular Neuts Not Reportable 10/10/20 18:18 Smudge Cells Not Reportable 10/10/20 18:18 Toxic Granulation Not Reportable 10/10/20 18:18 Toxic Vacuolation Not Reportable 10/10/20 18:18 Dohle Bodies Not Reportable 10/10/20 18:18 Pelger-Huet Anomaly Not Reportable 10/10/20 18:18 Dionicio Rods Not Reportable 10/10/20 18:18 Platelet Estimate Consistent w auto 10/10/20 18:18 Clumped Platelets Not Reportable 10/10/20 18:18 Plt Clumps, EDTA Not Reportable 10/10/20 18:18 Large Platelets Rare 10/10/20 18:18 Giant Platelets Rare 10/10/20 18:18 Platelet Satelliting Not Reportable 10/10/20 18:18 Plt Morphology Comment Not Reportable 10/10/20 18:18 RBC Morphology Not Reportable 10/10/20 18:18 Dimorphic RBCs Not Reportable 10/10/20 18:18 Polychromasia Not Reportable 10/10/20 18:18 Hypochromasia Not Reportable 10/10/20 18:18 Poikilocytosis Not Reportable 10/10/20 18:18 Anisocytosis Not Reportable 10/10/20 18:18 Microcytosis Not Reportable 10/10/20 18:18 Macrocytosis Not Reportable 10/10/20 18:18 Spherocytes Not Reportable 10/10/20 18:18 Pappenheimer Bodies Not Reportable 10/10/20 18:18 Sickle Cells Not Reportable 10/10/20 18:18 Target Cells Not Reportable 10/10/20 18:18 Tear Drop Cells Not Reportable 10/10/20 18:18 Ovalocytes Not Reportable 10/10/20 18:18 Helmet Cells Not Reportable 10/10/20 18:18 Medley-Foley Bodies Not Reportable 10/10/20 18:18 [place] Rings Not Reportable 10/10/20 18:18 Adelfo Cells Not Reportable 10/10/20 18:18 Bite Cells Not Reportable 10/10/20 18:18 Crenated Cell Not Reportable 10/10/20 18:18 Elliptocytes Not Reportable 10/10/20 18:18 Acanthocytes (Spur) Not Reportable 10/10/20 18:18 Rouleaux Not Reportable 10/10/20 18:18 Hemoglobin C Crystals Not Reportable 10/10/20 18:18 Schistocytes Not Reportable 10/10/20 18:18 Malaria parasites Not Reportable 10/10/20 18:18 Mauricio Bodies Not Reportable 10/10/20 18:18 Hem Pathologist Commnt No 10/10/20 18:18 PT 13.8 Sec. (12.2-14.9) 10/10/20 18:18 INR 1.07 (0.87-1.13) 10/10/20 18:18 APTT 26.9 Sec. (24.2-36.6) 10/10/20 18:18 D-Dimer 679.5 ng/mlDDU (0-234) H 10/10/20 10:48 Heparin Anti-Xa Level 0.22 U.I./ml (0.3-0.7) L 10/11/20 08:35 ABG pH 7.424 (7.320-7.450) 10/25/20 18:10 POC ABG pCO2 52.3 mmHg (32.0-48.0) H 10/25/20 18:10 ABG pCO2 55.5 mm Hg 10/16/20 05:10 POC ABG pO2 97.1 mmHg (83-108) 10/25/20 18:10 ABG pO2 104.5 mm Hg (80.0-90.0) H 10/16/20 05:10 POC ABG HCO3 33.5 10/25/20 18:10 ABG HCO3 35.1 mmol/L (20.0-26.0) H 10/16/20 05:10 ABG O2 Saturation 97.4 (0-100) 10/25/20 18:10 ABG O2 Content 10.8 (0.0-44) 10/16/20 05:10 POC ABG Base Excess 7.8 10/25/20 18:10 ABG Base Excess 9.5 mmol/L (-2.0-3.0) H 10/16/20 05:10 ABG Hemoglobin 11.2 (12.0-17.5) L 10/25/20 18:10 ABG Oxyhemoglobin 96.2 (94-98) 10/25/20 18:10 ABG Carboxyhemoglobin 1.9 % (0.0-5.0) 10/16/20 05:10 ABG Methemoglobin 0.3 (0.0-1.5) 10/25/20 18:10 ABG Sodium 144.9 mmol/L (136.0-145.0) 10/25/20 18:10 ABG Potassium 3.8 mmol/L (3.40-4.50) 10/25/20 18:10 ABG Chloride 108.0 mmol/L (98-107) H 10/25/20 18:10 ABG Glucose 167 mg/dL (65-95) H 10/25/20 18:10 VBG pH 6.870 (7.320-7.420) L* 10/10/20 10:48 Oxyhemoglobin 95.3 % (95.0-99.0) 10/16/20 05:10 Carboxyhemoglobin 0.9 (0.5-1.5) 10/25/20 18:10 FiO2 35 % 10/16/20 05:10 FiO2 % 30 10/25/20 18:10 Sodium 146 mmol/L (137-145) H 10/27/20 07:30 Potassium 4.3 mmol/L (3.6-5.0) 10/27/20 07:30 Chloride 105.1 mmol/L (98-107) 10/27/20 07:30 Carbon Dioxide 34 mmol/L (22-30) H 10/27/20 07:30 Anion Gap 11 mmol/L 10/27/20 07:30 BUN 45 mg/dL (9-20) H 10/27/20 07:30 Creatinine 1.3 mg/dL (0.8-1.3) 10/27/20 07:30 Estimated GFR > 60 ml/min 10/27/20 07:30 BUN/Creatinine Ratio 35 % 10/27/20 07:30 Glucose 131 mg/dL (75-100) H 10/27/20 07:30 POC Glucose 143 mg/dL (70-105) H 10/27/20 11:59 Hemoglobin A1c 6.0 % (4-6) 10/11/20 02:00 Lactic Acid 1.10 mmol/L (0.7-2.0) 10/13/20 04:52 Calcium 9.1 mg/dL (8.4-10.2) 10/27/20 07:30 Phosphorus 5.20 mg/dL (2.5-4.5) H D 10/17/20 03:32 Magnesium 2.30 mg/dL (1.7-2.3) 10/17/20 03:32 Ferritin 81.4 ng/mL (30.0-300.0) 10/10/20 10:48 Total Bilirubin 1.70 mg/dL (0.1-1.2) H 10/18/20 03:27 AST 37 units/L (5-40) 10/18/20 03:27 ALT 32 units/L (7-56) 10/18/20 03:27 Alkaline Phosphatase 97 units/L (35-129) 10/18/20 03:27 Ammonia 214.0 umol/L (25-60) H 10/10/20 10:46 Lactate Dehydrogenase 386 units/L (91-180) H 10/10/20 10:48 Total Creatine Kinase 1192 units/L (55-170) H 10/10/20 18:18 CK-MB (CK-2) 21.7 ng/mL (0.0-4.0) H 10/10/20 18:18 CK-MB (CK-2) Rel Index 1.8 (0-4) 10/10/20 18:18 Troponin T 0.125 ng/mL (0.00-0.029) H* D 10/12/20 04:00 C-Reactive Protein 0.90 mg/dL (0.00-1.30) 10/10/20 10:48 NT-Pro-B Natriuret Pep 1187 pg/mL (0-900) H 10/10/20 10:46 Total Protein 6.3 g/dL (6.3-8.2) 10/18/20 03:27 Albumin 3.1 g/dL (3.9-5) L 10/18/20 03:27 Albumin/Globulin Ratio 1.0 % 10/18/20 03:27 Triglycerides 278 mg/dL (2-149) H 10/13/20 04:52 Cholesterol 138 mg/dL (50-199) 10/10/20 18:18 LDL Cholesterol Direct 76 mg/dL (50-130) 10/10/20 18:18 HDL Cholesterol 49 mg/dL (40-59) 10/10/20 18:18 Cholesterol/HDL Ratio 2.81 % 10/10/20 18:18 Procalcitonin 4.98 ng/mL (<0.15) 10/15/20 04:12 TSH 6.260 mlU/mL (0.270-4.200) H 10/10/20 10:46 Arterial Blood Glucose 167 mg/dL (65-95) H 10/25/20 18:10 Arterial Blood Ionized Calcium 5.1 mg/dL (4.6-5.3) 10/25/20 18:10 Urine Color Angelica (Yellow) 10/18/20 Unknown Urine Turbidity Cloudy (Clear) 10/18/20 Unknown Urine pH 5.0 (5.0-7.0) 10/18/20 Unknown Ur Specific [place] 1.017 (1.003-1.030) 10/18/20 Unknown Urine Protein 100 mg/dl mg/dL (Negative) 10/18/20 Unknown Urine Glucose (UA) Neg mg/dL (Negative) 10/18/20 Unknown Urine Ketones Neg mg/dL (Negative) 10/18/20 Unknown Urine Blood Lg (Negative) 10/18/20 Unknown Urine Nitrite Neg (Negative) 10/18/20 Unknown Urine Bilirubin Neg (Negative) 10/18/20 Unknown Urine Urobilinogen 4.0 mg/dL (<2.0) 10/18/20 Unknown Ur Leukocyte Esterase Neg (Negative) 10/18/20 Unknown Urine WBC (Auto) 115.0 /HPF (0.0-6.0) H 10/18/20 Unknown Urine RBC (Auto) 98.0 /HPF (0.0-6.0) 10/18/20 Unknown U Epithel Cells (Auto) 2.0 /HPF (0-13.0) 10/18/20 Unknown Urine WBC Clumps 3+ /HPF 10/18/20 Unknown Urine Mucus Few /HPF 10/11/20 13:30 Urine Eosinophils None seen (None Seen) 10/11/20 13:30 Urine Creatinine 93.7 mg/dL (0.1-20.0) H 10/19/20 13:14 Urine Sodium 25 mmol/L 10/19/20 13:14 Urine Urea Nitrogen 845 10/19/20 13:14 Nasal Screen MRSA (PCR) Positive (Negative) 10/20/20 13:30 Random Vancomycin 5.8 ug/mL (0-40.0) 10/21/20 06:30 Urine Opiates Screen Negative 10/10/20 10:50 Urine Methadone Screen Negative 10/10/20 10:50 Ur Barbiturates Screen Negative 10/10/20 10:50 Ur Phencyclidine Scrn Negative 10/10/20 10:50 Ur Amphetamines Screen Negative 10/10/20 10:50 U Benzodiazepines Scrn Negative 10/10/20 10:50 Urine Cocaine Screen Negative 10/10/20 10:50 U Marijuana (THC) Screen Positive 10/10/20 10:50 Drugs of Abuse Note Disclamer 10/10/20 10:50 Plasma/Serum Alcohol < 0.01 % (0-0.07) 10/10/20 10:48 Coronavirus (PCR) Negative (Negative) 10/11/20 Unknown Blood Type AB POSITIVE 10/10/20 10:48 Antibody Screen Negative 10/10/20 10:48 Tuttle/IV: Voiding Method Condom Catheter Active Medications - Current Medications Current Medications: Generic Name Dose Route Start Last Admin Trade Name Freq PRN Reason Stop Dose Admin Acetaminophen 650 mg 10/10/20 21:51 10/20/20 09:11 Acetaminophen 325 Mg Tab PO 650 mg Q4H PRN Administration Pain MILD(1-3)/Fever >100.5/SALVADOR Acetaminophen 650 mg 10/11/20 11:24 10/17/20 17:16 Acetaminophen 650 Mg Rect Supp MN 650 mg Q6H PRN Administration Fever >101 Albuterol 2.5 mg 10/11/20 13:12 Albuterol 2.5 Mg/3 Ml Nebu IH Q6HRT PRN Shortness Of Breath Amlodipine Besylate 10 mg 10/25/20 13:00 10/27/20 10:13 Amlodipine 10 Mg Tab PO Not Given QDAY PEPITO Lipase/Protease/Amylase 1 each 10/10/20 22:18 Lipase 10,500/Protease 25,000/Amylase 43,750 (Units) Dr Santana FEEDTUBE PRN PRN For Clogged Feeding Tube Clonidine HCl 0.3 mg 10/14/20 15:00 10/21/20 14:05 Clonidine Tts 0.3 Mg/24 Hr Patch TD 0.3 mg Fr PEPITO Administration Docusate Sodium 100 mg 10/16/20 22:00 10/27/20 10:13 Docusate Sodium 100 Mg/10 Ml Oral Liqd PO Not Given BID PEPITO Fentanyl 50 mcg 10/16/20 14:10 10/23/20 10:53 Fentanyl 100 Mcg/2 Ml Inj IV 50 mcg Q10MIN PRN Administration ANALGESIA Glycopyrrolate 2 mg 10/19/20 14:00 10/27/20 10:13 Glycopyrrolate 1 Mg Tab PO Not Given Q6H PEPITO Heparin Sodium (Porcine) 5,000 unit 10/11/20 22:00 10/27/20 10:14 Heparin 5,000 Unit/1 Ml Vial SUB-Q Not Given Q12HR PEPITO Hydralazine HCl 5 mg 10/15/20 20:25 10/27/20 12:34 Hydralazine 20 Mg/1 Ml Inj IV 5 mg Q6H PRN Administration Hypertension Hydralazine HCl 100 mg 10/24/20 09:30 10/27/20 06:18 Hydralazine 25 Mg Tab PO Not Given Q8HR PEPITO Hydrophilic Ointment 1 applic 10/10/20 10:34 Lip Therapy Vaseline TP Q2HR PRN Dry Lips Levetiracetam 500 mg/ Dextrose 105 mls @ 400 mls/hr 10/13/20 18:00 10/27/20 06:17 IV 400 mls/hr Q12H PEPITO Administration Fentanyl Citrate 2,000 mcg in 100 mls @ 6.175 mls/hr 10/16/20 15:00 10/26/20 21:59 Fentanyl Drip Premix IV 0.5 mcg/kg/hr TITR PEPITO 3.088 mls/hr Administration Protocol 1 MCG/KG/HR Linezolid 600 mg in 300 mls @ 300 mls/hr 10/20/20 12:00 10/27/20 10:47 Zyvox 600mg/300ml IV 10/29/20 22:59 300 mls/hr Q12HR PEPITO Administration Protocol Lansoprazole 30 mg 10/24/20 10:00 10/27/20 10:14 Lansoprazole 30 Mg Solutab FEEDTUBE Not Given BID PEPITO Metoclopramide HCl 10 mg 10/10/20 21:51 Metoclopramide 10 Mg/2 Ml Inj IV Q6H PRN Nausea And Vomiting Metoprolol Tartrate 100 mg 10/21/20 14:00 10/27/20 10:13 Metoprolol Tartrate 50 Mg Tab PO Not Given TID PEPITO Multi-Ingred Cream/Lotion/Oil/Oint 1 applic 10/10/20 10:34 Mineral Oil/Petrolatum, White Ophth Oint 3.5 Gm OU Q4HR PRN Dry Eye(s) Ondansetron HCl 4 mg 10/10/20 21:51 Ondansetron 4 Mg/2 Ml Inj IV Q3H PRN Nausea And Vomiting Polyethylene Glycol 17 gm 10/17/20 10:00 10/27/20 10:14 Polyethylene Glycol 3350 17 Gm Powder PO Not Given QDAY PEPITO Scopolamine 1 each 10/17/20 10:00 10/26/20 10:03 Scopolamine Transdermal Patch 72 Hr TD 1 each Q3D PEPITO Administration Simple Syrup 15 ml 10/10/20 22:18 Simple Syrup 15 Ml FEEDTUBE PRN PRN Hypoglycemia Simple Syrup 30 ml 10/10/20 22:18 Simple Syrup 15 Ml FEEDTUBE PRN PRN Hypoglycemia Sodium Bicarbonate 325 mg 10/10/20 22:18 Sodium Bicarbonate 325 Mg Tab FEEDTUBE PRN PRN For Clogged Feeding Tube Sodium Chloride 10 ml 10/10/20 22:00 10/27/20 10:46 Sodium Chloride 0.9% 10 Ml Flush Syringe IV 10 ml BID PEPITO Administration Sodium Chloride 10 ml 10/10/20 21:51 10/21/20 09:56 Sodium Chloride 0.9% 10 Ml Flush Syringe IV 10 ml PRN PRN Administration LINE FLUSH Nutrition/Malnutrition Assess - Dietary Evaluation Nutrition/Malnutrition Findings: Nutrition Notes Start: 10/11/20 08:38 Freq: Status: Active Protocol: Document 10/27/20 11:40 CW (Rec: 10/27/20 12:13 CW [id number]) Nutrition Notes Initial or Follow up Reassessment Current Diagnosis Acute Kidney Injury,Sepsis, Hypertension,Heart Failure, Respiratory Failure Other Pertinent Diagnosis GIB, pneu, MRSA OK, pulmonary edema Current Diet NPO Labs/Tests Na 146 BUN 45 Pertinent Medications Miralax Colace Height 6 ft Weight 126 kg [place] Body Weight (kg) 80.90 BMI 37.6 Weight change and time frame weight stable Weight Status Morbidly Obese Subjective/Other Information F/U for TF tolerance and renal related labs. TF held at midnight today for PEG and Trach placement per RN. Renal functioing improving recommend change TF to better meet protein needs. Percent of energy/protein needs met: 100%/54% (prior to TF being on hold) Burn Absent Trauma Absent Difficulty In Swallowing Current % PO Negligible Minimum of two criteria No Fluid Accumulation Mild (non-severe) #1 Nutrition Diagnosis Inadequate oral intake Diagnosis Progress(for reassessment Continues documentation) Is patient on ventilator? Yes Is Patient Ambulatory and/or Out of Bed No REE-([place]confined to bed) 2575.176 Kcal/Kg value to use for calculation 15 Approximate Energy Requirements Using 1890 kcal/Kg Calculation Used for Recommendations Kcal/kg Additional Notes protein needs: >162g (>2 kgIBW ) fluid needs: 1 ml/kcal or per MD Nutrition Intervention Change Diet Order: Restart TF, recommend change Nutrition Support: Promote at 80 ml/hr with a free water flush of 200 ml q4hr for hypernatremia. Once hypernatremia resolved, resume flush of 50 ml q4h. Kcal 1,920 Protein (gm) 120 Fluid (mL) 1,611 Goal #1 Tolerate TF Goal #2 Meet protein and kcal needs via TF as best as possible Anticipated Discharge Needs: TF Follow-Up By: 10/31/20 Additional Comments F/U for TF restart, renal related labs, trach and peg placement <DAVID TORRES R - Last Filed: 10/27/20 23:04> Assessment and Plan Assessment and plan: I saw and evaluated the patient. I agree with the findings and the plan of care as documented in the Nurse Practitioner's~note, with the following corrections and additions. Called patient's and mother in a conference call and updated clinical details. Family was informed about patient's poor prognosis with anoxic brain injury and s/p multiple cardiac arrest. Hospitalist Physical - Constitutional Vitals: Temp Pulse Resp BP Pulse Ox 98.9 F 62 16 123/74 93 10/27/20 20:00 10/27/20 22:21 10/27/20 21:30 10/27/20 22:21 10/27/20 21:30 HEART Score - HEART Score Troponin: Troponin T 0.125 ng/mL (0.00-0.029) H* D 10/12/20 04:00 Results - Labs CBC & Chem 7: 10/27/20 07:30 10/27/20 07:30 Labs: Laboratory Last Values WBC 11.0 K/mm3 (4.5-11.0) 10/27/20 07:30 RBC 3.46 M/mm3 (3.65-5.03) L 10/27/20 07:30 Hgb 10.2 gm/dl (11.8-15.2) L 10/27/20 07:30 Hct 30.9 % (35.5-45.6) L 10/27/20 07:30 MCV 89 fl (84-94) 10/27/20 07:30 MCH 29 pg (28-32) 10/27/20 07:30 MCHC 33 % (32-34) 10/27/20 07:30 RDW 14.7 % (13.2-15.2) 10/27/20 07:30 Plt Count 311 K/mm3 (140-440) 10/27/20 07:30 Lymph % (Auto) 4.2 % (13.4-35.0) L 10/19/20 04:55 [place] % (Auto) 11.9 % (0.0-7.3) H 10/19/20 04:55 Eos % (Auto) 1.6 % (0.0-4.3) 10/19/20 04:55 Baso % (Auto) 0.3 % (0.0-1.8) 10/19/20 04:55 Lymph # (Auto) 0.6 K/mm3 (1.2-5.4) L 10/19/20 04:55 [place] # (Auto) 1.8 K/mm3 (0.0-0.8) H 10/19/20 04:55 Eos # (Auto) 0.2 K/mm3 (0.0-0.4) 10/19/20 04:55 Baso # (Auto) 0.1 K/mm3 (0.0-0.1) 10/19/20 04:55 Add Manual Diff Complete 10/10/20 18:18 Total Counted 100 10/10/20 18:18 Seg Neutrophils % 82.0 % (40.0-70.0) H 10/19/20 04:55 Seg Neuts % (Manual) 60.0 % (40.0-70.0) 10/10/20 18:18 Band Neutrophils % 27.0 % 10/10/20 18:18 Lymphocytes % (Manual) 4.0 % (13.4-35.0) L 10/10/20 18:18 Monocytes % (Manual) 9.0 % (0.0-7.3) H 10/10/20 18:18 Eosinophils % (Manual) 4.0 % (0.0-4.3) 10/10/20 10:48 Metamyelocytes % 1.0 % 10/10/20 10:48 Nucleated RBC % Not Reportable 10/10/20 18:18 Seg Neutrophils # 12.4 K/mm3 (1.8-7.7) H 10/19/20 04:55 Seg Neutrophils # Man 13.8 K/mm3 (1.8-7.7) H 10/10/20 18:18 Band Neutrophils # 6.2 K/mm3 10/10/20 18:18 Lymphocytes # (Manual) 0.9 K/mm3 (1.2-5.4) L 10/10/20 18:18 Abs React Lymphs (Man) 0.0 K/mm3 10/10/20 18:18 Monocytes # (Manual) 2.1 K/mm3 (0.0-0.8) H 10/10/20 18:18 Eosinophils # (Manual) 0.0 K/mm3 (0.0-0.4) 10/10/20 18:18 Basophils # (Manual) 0.0 K/mm3 (0.0-0.1) 10/10/20 18:18 Metamyelocytes # 0.0 K/mm3 10/10/20 18:18 Myelocytes # 0.0 K/mm3 10/10/20 18:18 Promyelocytes # 0.0 K/mm3 10/10/20 18:18 Blast Cells # 0.0 K/mm3 10/10/20 18:18 WBC Morphology Not Reportable 10/10/20 18:18 Hypersegmented Neuts Not Reportable 10/10/20 18:18 Hyposegmented Neuts Not Reportable 10/10/20 18:18 Hypogranular Neuts Not Reportable 10/10/20 18:18 Smudge Cells Not Reportable 10/10/20 18:18 Toxic Granulation Not Reportable 10/10/20 18:18 Toxic Vacuolation Not Reportable 10/10/20 18:18 Dohle Bodies Not Reportable 10/10/20 18:18 Pelger-Huet Anomaly Not Reportable 10/10/20 18:18 Dionicio Rods Not Reportable 10/10/20 18:18 Platelet Estimate Consistent w auto 10/10/20 18:18 Clumped Platelets Not Reportable 10/10/20 18:18 Plt Clumps, EDTA Not Reportable 10/10/20 18:18 Large Platelets Rare 10/10/20 18:18 Giant Platelets Rare 10/10/20 18:18 Platelet Satelliting Not Reportable 10/10/20 18:18 Plt Morphology Comment Not Reportable 10/10/20 18:18 RBC Morphology Not Reportable 10/10/20 18:18 Dimorphic RBCs Not Reportable 10/10/20 18:18 Polychromasia Not Reportable 10/10/20 18:18 Hypochromasia Not Reportable 10/10/20 18:18 Poikilocytosis Not Reportable 10/10/20 18:18 Anisocytosis Not Reportable 10/10/20 18:18 Microcytosis Not Reportable 10/10/20 18:18 Macrocytosis Not Reportable 10/10/20 18:18 Spherocytes Not Reportable 10/10/20 18:18 Pappenheimer Bodies Not Reportable 10/10/20 18:18 Sickle Cells Not Reportable 10/10/20 18:18 Target Cells Not Reportable 10/10/20 18:18 Tear Drop Cells Not Reportable 10/10/20 18:18 Ovalocytes Not Reportable 10/10/20 18:18 Helmet Cells Not Reportable 10/10/20 18:18 Medley-Foley Bodies Not Reportable 10/10/20 18:18 [place] Rings Not Reportable 10/10/20 18:18 [place] Cells Not Reportable 10/10/20 18:18 Bite Cells Not Reportable 10/10/20 18:18 Crenated Cell Not Reportable 10/10/20 18:18 Elliptocytes Not Reportable 10/10/20 18:18 Acanthocytes (Spur) Not Reportable 10/10/20 18:18 Rouleaux Not Reportable 10/10/20 18:18 Hemoglobin C Crystals Not Reportable 10/10/20 18:18 Schistocytes Not Reportable 10/10/20 18:18 Malaria parasites Not Reportable 10/10/20 18:18 Mauricio Bodies Not Reportable 10/10/20 18:18 Hem Pathologist Commnt No 10/10/20 18:18 PT 13.8 Sec. (12.2-14.9) 10/10/20 18:18 INR 1.07 (0.87-1.13) 10/10/20 18:18 APTT 26.9 Sec. (24.2-36.6) 10/10/20 18:18 D-Dimer 679.5 ng/mlDDU (0-234) H 10/10/20 10:48 Heparin Anti-Xa Level 0.22 U.I./ml (0.3-0.7) L 10/11/20 08:35 ABG pH 7.424 (7.320-7.450) 10/25/20 18:10 POC ABG pCO2 52.3 mmHg (32.0-48.0) H 10/25/20 18:10 ABG pCO2 55.5 mm Hg 10/16/20 05:10 POC ABG pO2 97.1 mmHg (83-108) 10/25/20 18:10 ABG pO2 104.5 mm Hg (80.0-90.0) H 10/16/20 05:10 POC ABG HCO3 33.5 10/25/20 18:10 ABG HCO3 35.1 mmol/L (20.0-26.0) H 10/16/20 05:10 ABG O2 Saturation 97.4 (0-100) 10/25/20 18:10 ABG O2 Content 10.8 (0.0-44) 10/16/20 05:10 POC ABG Base Excess 7.8 10/25/20 18:10 ABG Base Excess 9.5 mmol/L (-2.0-3.0) H 10/16/20 05:10 ABG Hemoglobin 11.2 (12.0-17.5) L 10/25/20 18:10 ABG Oxyhemoglobin 96.2 (94-98) 10/25/20 18:10 ABG Carboxyhemoglobin 1.9 % (0.0-5.0) 10/16/20 05:10 ABG Methemoglobin 0.3 (0.0-1.5) 10/25/20 18:10 ABG Sodium 144.9 mmol/L (136.0-145.0) 10/25/20 18:10 ABG Potassium 3.8 mmol/L (3.40-4.50) 10/25/20 18:10 ABG Chloride 108.0 mmol/L (98-107) H 10/25/20 18:10 ABG Glucose 167 mg/dL (65-95) H 10/25/20 18:10 VBG pH 6.870 (7.320-7.420) L* 10/10/20 10:48 Oxyhemoglobin 95.3 % (95.0-99.0) 10/16/20 05:10 Carboxyhemoglobin 0.9 (0.5-1.5) 10/25/20 18:10 FiO2 35 % 10/16/20 05:10 FiO2 % 30 10/25/20 18:10 Sodium 146 mmol/L (137-145) H 10/27/20 07:30 Potassium 4.3 mmol/L (3.6-5.0) 10/27/20 07:30 Chloride 105.1 mmol/L (98-107) 10/27/20 07:30 Carbon Dioxide 34 mmol/L (22-30) H 10/27/20 07:30 Anion Gap 11 mmol/L 10/27/20 07:30 BUN 45 mg/dL (9-20) H 10/27/20 07:30 Creatinine 1.3 mg/dL (0.8-1.3) 10/27/20 07:30 Estimated GFR > 60 ml/min 10/27/20 07:30 BUN/Creatinine Ratio 35 % 10/27/20 07:30 Glucose 131 mg/dL (75-100) H 10/27/20 07:30 POC Glucose 119 mg/dL (70-105) H 10/27/20 18:52 Hemoglobin A1c 6.0 % (4-6) 10/11/20 02:00 Lactic Acid 1.10 mmol/L (0.7-2.0) 10/13/20 04:52 Calcium 9.1 mg/dL (8.4-10.2) 10/27/20 07:30 Phosphorus 5.20 mg/dL (2.5-4.5) H D 10/17/20 03:32 Magnesium 2.30 mg/dL (1.7-2.3) 10/17/20 03:32 Ferritin 81.4 ng/mL (30.0-300.0) 10/10/20 10:48 Total Bilirubin 1.70 mg/dL (0.1-1.2) H 10/18/20 03:27 AST 37 units/L (5-40) 10/18/20 03:27 ALT 32 units/L (7-56) 10/18/20 03:27 Alkaline Phosphatase 97 units/L (35-129) 10/18/20 03:27 Ammonia 214.0 umol/L (25-60) H 10/10/20 10:46 Lactate Dehydrogenase 386 units/L (91-180) H 10/10/20 10:48 Total Creatine Kinase 1192 units/L (55-170) H 10/10/20 18:18 CK-MB (CK-2) 21.7 ng/mL (0.0-4.0) H 10/10/20 18:18 CK-MB (CK-2) Rel Index 1.8 (0-4) 10/10/20 18:18 Troponin T 0.125 ng/mL (0.00-0.029) H* D 10/12/20 04:00 C-Reactive Protein 0.90 mg/dL (0.00-1.30) 10/10/20 10:48 NT-Pro-B Natriuret Pep 1187 pg/mL (0-900) H 10/10/20 10:46 Total Protein 6.3 g/dL (6.3-8.2) 10/18/20 03:27 Albumin 3.1 g/dL (3.9-5) L 10/18/20 03:27 Albumin/Globulin Ratio 1.0 % 10/18/20 03:27 Triglycerides 278 mg/dL (2-149) H 10/13/20 04:52 Cholesterol 138 mg/dL (50-199) 10/10/20 18:18 LDL Cholesterol Direct 76 mg/dL (50-130) 10/10/20 18:18 HDL Cholesterol 49 mg/dL (40-59) 10/10/20 18:18 Cholesterol/HDL Ratio 2.81 % 10/10/20 18:18 Procalcitonin 4.98 ng/mL (<0.15) 10/15/20 04:12 TSH 6.260 mlU/mL (0.270-4.200) H 10/10/20 10:46 Arterial Blood Glucose 167 mg/dL (65-95) H 10/25/20 18:10 Arterial Blood Ionized Calcium 5.1 mg/dL (4.6-5.3) 10/25/20 18:10 Urine Color Angelica (Yellow) 10/18/20 Unknown Urine Turbidity Cloudy (Clear) 10/18/20 Unknown Urine pH 5.0 (5.0-7.0) 10/18/20 Unknown Ur Specific [place] 1.017 (1.003-1.030) 10/18/20 Unknown Urine Protein 100 mg/dl mg/dL (Negative) 10/18/20 Unknown Urine Glucose (UA) Neg mg/dL (Negative) 10/18/20 Unknown Urine Ketones Neg mg/dL (Negative) 10/18/20 Unknown Urine Blood Lg (Negative) 10/18/20 Unknown Urine Nitrite Neg (Negative) 10/18/20 Unknown Urine Bilirubin Neg (Negative) 10/18/20 Unknown Urine Urobilinogen 4.0 mg/dL (<2.0) 10/18/20 Unknown Ur Leukocyte Esterase Neg (Negative) 10/18/20 Unknown Urine WBC (Auto) 115.0 /HPF (0.0-6.0) H 10/18/20 Unknown Urine RBC (Auto) 98.0 /HPF (0.0-6.0) 10/18/20 Unknown U Epithel Cells (Auto) 2.0 /HPF (0-13.0) 10/18/20 Unknown Urine WBC Clumps 3+ /HPF 10/18/20 Unknown Urine Mucus Few /HPF 10/11/20 13:30 Urine Eosinophils None seen (None Seen) 10/11/20 13:30 Urine Creatinine 93.7 mg/dL (0.1-20.0) H 10/19/20 13:14 Urine Sodium 25 mmol/L 10/19/20 13:14 Urine Urea Nitrogen 845 10/19/20 13:14 Nasal Screen MRSA (PCR) Positive (Negative) 10/20/20 13:30 Random Vancomycin 5.8 ug/mL (0-40.0) 10/21/20 06:30 Urine Opiates Screen Negative 10/10/20 10:50 Urine Methadone Screen Negative 10/10/20 10:50 Ur Barbiturates Screen Negative 10/10/20 10:50 Ur Phencyclidine Scrn Negative 10/10/20 10:50 Ur Amphetamines Screen Negative 10/10/20 10:50 U Benzodiazepines Scrn Negative 10/10/20 10:50 Urine Cocaine Screen Negative 10/10/20 10:50 U Marijuana (THC) Screen Positive 10/10/20 10:50 Drugs of Abuse Note Disclamer 10/10/20 10:50 Plasma/Serum Alcohol < 0.01 % (0-0.07) 10/10/20 10:48 Coronavirus (PCR) Negative (Negative) 10/11/20 Unknown Blood Type AB POSITIVE 10/10/20 10:48 Antibody Screen Negative 10/10/20 10:48 [place]/IV: Voiding Method Condom Catheter Active Medications - Current Medications Current Medications: Generic Name Dose Route Start Last Admin Trade Name Freq PRN Reason Stop Dose Admin Acetaminophen 650 mg 10/10/20 21:51 10/20/20 09:11 Acetaminophen 325 Mg Tab PO 650 mg Q4H PRN Administration Pain MILD(1-3)/Fever >100.5/SALVADOR Acetaminophen 650 mg 10/11/20 11:24 10/17/20 17:16 Acetaminophen 650 Mg Rect Supp [place] 650 mg Q6H PRN Administration Fever >101 Albuterol 2.5 mg 10/11/20 13:12 Albuterol 2.5 Mg/3 Ml Nebu IH Q6HRT PRN Shortness Of Breath Amlodipine Besylate 10 mg 10/25/20 13:00 10/27/20 10:13 Amlodipine 10 Mg Tab PO Not Given QDAY PEPITO Lipase/Protease/Amylase 1 each 10/10/20 22:18 Lipase 10,500/Protease 25,000/Amylase 43,750 (Units) Dr Santana FEEDTUBE PRN PRN For Clogged Feeding Tube Clonidine HCl 0.3 mg 10/14/20 15:00 10/21/20 14:05 Clonidine Tts 0.3 Mg/24 Hr Patch TD 0.3 mg Fr PEPITO Administration Docusate Sodium 100 mg 10/16/20 22:00 10/27/20 22:21 Docusate Sodium 100 Mg/10 Ml Oral Liqd PO 100 mg BID [facility]PITO Administration Fentanyl 50 mcg 10/16/20 14:10 10/23/20 10:53 Fentanyl 100 Mcg/2 Ml Inj IV 50 mcg Q10MIN PRN Administration ANALGESIA Glycopyrrolate 2 mg 10/19/20 14:00 10/27/20 19:44 Glycopyrrolate 1 Mg Tab PO 2 mg Q6H PEPITO Administration Heparin Sodium (Porcine) 5,000 unit 10/11/20 22:00 10/27/20 10:14 Heparin 5,000 Unit/1 Ml Vial SUB-Q Not Given Q12HR [facility] Hydralazine HCl 5 mg 10/15/20 20:25 10/27/20 18:44 Hydralazine 20 Mg/1 Ml Inj IV 5 mg Q6H PRN Administration Hypertension Hydralazine HCl 100 mg 10/24/20 09:30 10/27/20 22:21 Hydralazine 25 Mg Tab PO 100 mg Q8HR PEPITO Administration Hydrophilic Ointment 1 applic 10/10/20 10:34 Lip Therapy Vaseline TP Q2HR PRN Dry Lips Levetiracetam 500 mg/ Dextrose 105 mls @ 400 mls/hr 10/13/20 18:00 10/27/20 18:45 IV 400 mls/hr Q12H PEPITO Administration Fentanyl Citrate 2,000 mcg in 100 mls @ 6.175 mls/hr 10/16/20 15:00 10/27/20 18:44 Fentanyl Drip Premix IV 1 mcg/kg/hr TITR [place]P[facility] 6.175 mls/hr Titration Protocol 1 MCG/KG/HR Linezolid 600 mg in 300 mls @ 300 mls/hr 10/20/20 12:00 10/27/20 22:22 Zyvox 600mg/300ml IV 10/29/20 22:59 300 mls/hr Q12HR PEPITO Administration Protocol Lansoprazole 30 mg 10/24/20 10:00 10/27/20 22:21 Lansoprazole 30 Mg Solutab FEEDTUBE 30 mg BID [place]PITO Administration Metoclopramide HCl 10 mg 10/10/20 21:51 Metoclopramide 10 Mg/2 Ml Inj IV Q6H PRN Nausea And Vomiting Metoprolol Tartrate 100 mg 10/21/20 14:00 10/27/20 19:44 Metoprolol Tartrate 50 Mg Tab PO 100 mg TID [place]PITO Administration Multi-Ingred Cream/Lotion/Oil/Oint 1 applic 10/10/20 10:34 Mineral Oil/Petrolatum, White Ophth Oint 3.5 Gm OU Q4HR PRN Dry Eye(s) Ondansetron HCl 4 mg 10/10/20 21:51 Ondansetron 4 Mg/2 Ml Inj IV Q3H PRN Nausea And Vomiting Polyethylene Glycol 17 gm 10/17/20 10:00 10/27/20 10:14 Polyethylene Glycol 3350 17 Gm Powder PO Not Given QDAY PEPITO Scopolamine 1 each 10/17/20 10:00 10/26/20 10:03 Scopolamine Transdermal Patch 72 Hr TD 1 each Q3D PEPITO Administration Simple Syrup 15 ml 10/10/20 22:18 Simple Syrup 15 Ml FEEDTUBE PRN PRN Hypoglycemia Simple Syrup 30 ml 10/10/20 22:18 Simple Syrup 15 Ml FEEDTUBE PRN PRN Hypoglycemia Sodium Bicarbonate 325 mg 10/10/20 22:18 Sodium Bicarbonate 325 Mg Tab FEEDTUBE PRN PRN For Clogged Feeding Tube Sodium Chloride 10 ml 10/10/20 22:00 10/27/20 10:46 Sodium Chloride 0.9% 10 Ml Flush Syringe IV 10 ml BID PEPITO Administration Sodium Chloride 10 ml 10/10/20 21:51 10/21/20 09:56 Sodium Chloride 0.9% 10 Ml Flush Syringe IV 10 ml PRN PRN Administration LINE FLUSH Nutrition/Malnutrition Assess - Dietary Evaluation Nutrition/Malnutrition Findings: Nutrition Notes Start: 10/11/20 08:38 Freq: Status: Active Protocol: Document 10/27/20 11:40 CW (Rec: 10/27/20 12:13 CW [id number]) Nutrition Notes Initial or Follow up Reassessment Current Diagnosis Acute Kidney Injury,Sepsis, Hypertension,Heart Failure, Respiratory Failure Other Pertinent Diagnosis GIB, pneu, MRSA [place], pulmonary edema Current Diet NPO Labs/Tests Na 146 BUN 45 Pertinent Medications Miralax Colace Height 6 ft Weight 126 kg [place] Body Weight (kg) 80.90 BMI 37.6 Weight change and time frame weight stable Weight Status Morbidly Obese Subjective/Other Information F/U for TF tolerance and renal related labs. TF held at midnight today for PEG and Trach placement per RN. Renal functioing improving recommend change TF to better meet protein needs. Percent of energy/protein needs met: 100%/54% (prior to TF being on hold) Burn Absent Trauma Absent Difficulty In Swallowing Current % PO Negligible Minimum of two criteria No Fluid Accumulation Mild (non-severe) #1 Nutrition Diagnosis Inadequate oral intake Diagnosis Progress(for reassessment Continues documentation) Is patient on ventilator? Yes Is Patient Ambulatory and/or Out of Bed No REE-([place]-confined to bed) 2575.176 Kcal/Kg value to use for calculation 15 Approximate Energy Requirements Using 1890 kcal/Kg Calculation Used for Recommendations Kcal/kg Additional Notes protein needs: >162g (>2 kgIBW ) fluid needs: 1 ml/kcal or per MD Nutrition Intervention Change Diet Order: Restart TF, recommend change Nutrition Support: Promote at 80 ml/hr with a free water flush of 200 ml q4hr for hypernatremia. Once hypernatremia resolved, resume flush of 50 ml q4h. Kcal 1,920 Protein (gm) 120 Fluid (mL) 1,611 Goal #1 Tolerate TF Goal #2 Meet protein and kcal needs via TF as best as possible Anticipated Discharge Needs: TF Follow-Up By: 10/31/20 Additional Comments F/U for TF restart, renal related labs, trach and peg placement
--- NOTE | 2020-10-27 18:00 | Procedure Note ---
Date of procedure: 10/27/20 Pre-op diagnosis: Respiratory failure Post-op diagnosis: same Procedure: 1) Open tracheostomy - #8 cuffed Shiley 2) PEG Description of procedure: Pt was placed supine on the OR table. Bite block was placed between his incisors. Endoscope was introduced into the oropharynx and the esophagus intubated under direct vision. Scope was advanced into the stomach and the stomach maximally inflated. An appropriate location for the PEG placement was selected. LUQ was prepped and draped. Skin and SQ tissue at the proposed PEG site were infiltrated with 5 ml of 1% Lidocaine. A small skin incision was made at the PEG site. The introducer needle was passed through this incision and then into the stomach on the 1st pass. Guide wire was inserted through the catheter and the guide wire grasped with the snare of the scope. The guide wire and scope were removed via the oropharynx. The PEG tube was attached to the guide wire. External traction was applied to the guide wire via the LUQ until the internal bolster was snug up against the gastric and abdominal lewis. The external bolster, PEG tubing clamp and plug were placed. Repeat gastroscopy was performed revealing the internal bolster to be in good position with no bleeding from the gastric puncture site. The internal bolster was photodocumented. The external bolster was adjusted appropriately with the final position of the external bolster being 5 cm. Insufflated air was aspirated from the stomach and the scope withdrawn. Antibiotic ointment and a slitted gauze were placed under the external bolster and the PEG tubing taped down for security. A shoulder block was placed behind the pt's upper back to facilitate maximal neck extension. The pt's neck and upper chest were prepped and draped. Skin and SQ tissue at the proposed incision were infiltrated with 8 ml of 1% Lidocai ne with epinephrine. A transverse collar incision was made about 3 cm above the suprasternal notch. Hemostasis of superficial bleeding was obtained with the Bovie. Platysma was transected with the Bovie. Strap muscles were divided in the midline. The upper thyroid isthmus was divided with a Ligasure. The 1st tracheal ring was vertically transected and an "H" type incision made into the membranous portions adjacent to the 1st tracheal ring. The pt's ET tube was slowly retracted and when appropriate, the #8 cuffed Shiley tracheostomy tube inserted into the trachea without difficulty. The tracheostomy cuff was inflated. The ventilator was immediately attached to the tracheostomy tube and ventilation continued. End tidal CO2 was appropriate. No leak was identified. Strap muscles were reapproximated in the midline with a running suture of 3-0 Vicryl. Platysma was reapproximated with interrupted sutures of 3-0 Vicryl. Skin was approximated with interrupted vertical mattress sutures of 3-0 Nylon. A slitted gauze was placed about the tracheostomy tube. The tracheostomy tube was then secured about the neck with a Velcro adjustable strap. Pt tolerated both procedures well. Pt was taken back to the ICU immediately in stable condition. Anesthesia: LONNYA Surgeon: LILA ALVAREZ Estimated blood loss: minimal Pathology: none Condition: stable Disposition: PACU
--- NOTE | 2020-10-27 18:22 | Progress Note ---
Assessment and Plan Cardiac arrest x3 with ROSC Severe septic and cardiogenic shock Acute respiratory failure with hypoxemia and hypercarbia Acute pulmonary edema MOE (acute kidney injury) Lactic acidosis, severe metabolic acidosis Bilateral pneumonia, aspiration pneumonia Elevated troponins (AMS remains rate limiting factor for safe extubation acutely; i have discussed care plan at length with his Nini today and will place a consult for a tracheostomy & PEG) - repeat CXR in am - NPO now for trach and PEG - continue contact precautions re: MRSA - complete Zyvox dosing - keep peep at 8 - continue care as below otherwise; - flonase nasal spray for sinus congestion / exudation - continue to hold on full anticoagulation re: negative Dopplers and clinical improvement in oxygenation - continue Clonidine 0.3 mg weekly patch - follow G.I. evaluation - de-escalate empiric anti-infective's per ID rec's (on Zyvox) - follow clinically re: fevers / WBC - Monitor hemodynamics closely - continue daily SAT's and SBT assessment as tolerated - wean supplemental oxygen for target O2 sat's > 92% acutely - VAP bundle addressed - continue lung protective strategies - bronchodilators with pulmonary hygiene per RT - wean per pulmonary driven protocols otherwise - Monitor urine output closely - bicarbonate infusion - avoid nephrotoxins, renally dose all medications - continue to avoid benzodiazepine's, reduce the possibility of delirium - continue Scopolamine for secretion control - continue wound care per RN/WCN - prn analgesia per CPOT score - Maintenance of sleep-wake cycle, avoid delirium - continue enteral nutritional support at goal rate as tolerated - G.I. & VTE prophylaxis - PT/OT/ROM exercises - continue mobility protocols for pressure ulcer prophylaxis - Monitor hemodynamics closely - continue other care per attending / other consultants - discharge planning ongoing concurrently .... Re-evaluate in am & prn CONDITION: CRITICAL PROGNOSIS: GUARDED CODE STATUS: FULL CODE The high probability of a clinically significant, sudden or life-threatening deterioration of the [respiratory, cardiovascular & neurologic] system(s) required my full and direct attention, intervention and personal management. The aggregate critical care time was [32] minutes without overlap. Time includes spent on; [x] Data Review and interpretation [x] Patient assessment and monitoring of vital signs [x] Documentation [x] Medication orders and management Subjective Date of service: 10/27/20 Principal diagnosis: Cardiac arrest; Septic Shock; Ac. hypoxemic & hypercapnic resp failure; MOE Interval history: Patient is seen today for: Cardiac arrest with ROSC; Severe septic and ca rdiogenic shock; Acute respiratory failure with hypoxemia and hypercarbia; Acute pulmonary edema; MOE; Lactic acidosis; severe metabolic acidosis; Bilateral pneumonia; aspiration pneumonia; Elevated troponins Seen and examined at bedside; 24hour events reviewed; nursing and respiratory care staff consulted; no adverse overnight events reported to me; resting peacefully in bed; tentatively for trach & PEG today; AMS is persistent; no new issues otherwise Objective Vital Signs - 12hr 10/27/20 10/27/20 10/27/20 06:30 07:00 07:30 Temperature Pulse Rate 72 66 67 Respiratory 17 16 16 Rate Blood Pressure 144/78 146/85 O2 Sat by Pulse 97 98 99 Oximetry 10/27/20 10/27/20 10/27/20 07:51 08:00 08:30 Temperature 99.0 F Pulse Rate 68 65 Respiratory 15 16 Rate Blood Pressure 146/85 143/78 O2 Sat by Pulse 99 99 Oximetry 10/27/20 10/27/20 10/27/20 09:00 09:30 10:00 Temperature Pulse Rate 76 76 73 Respiratory 20 20 15 Rate Blood Pressure 132/76 132/76 166/99 O2 Sat by Pulse 100 98 99 Oximetry 10/27/20 10/27/20 10/27/20 10:30 11:00 11:30 Temperature Pulse Rate 70 68 73 Respiratory 15 14 17 Rate Blood Pressure 145/80 143/79 143/82 O2 Sat by Pulse 99 100 99 Oximetry 10/27/20 10/27/20 10/27/20 12:00 12:21 12:30 Temperature 98.2 F Pulse Rate 81 83 Respiratory 18 20 Rate Blood Pressure 169/100 175/103 O2 Sat by Pulse 99 99 Oximetry 10/27/20 10/27/20 10/27/20 12:34 12:37 13:00 Temperature Pulse Rate 75 79 79 Respiratory 17 16 Rate Blood Pressure 181/104 181/104 181/104 O2 Sat by Pulse 100 99 Oximetry 10/27/20 13:30 Temperature Pulse Rate 79 Respiratory 19 Rate Blood Pressure 140/79 O2 Sat by Pulse 100 Oximetry Constitutional: no acute distress, other (middle aged obese male with mildly increased respiratory efort at rest) Eyes: non-icteric ENT: oropharynx moist, other (ETT 24 cm ANNIE) Neck: supple, no lymphadenopathy, no JVD Effort: mildly labored Ascultation: Bilateral: diminished breath sounds, rhonchi Percussion: Bilateral: not dull Cardiovascular: regular rate and rhythm, other (S1,S2) Gastrointestinal: normoactive bowel sounds, soft, non-tender, non-distended (protuberant) Integumentary: normal Extremities: no cyanosis, no edema, pulses normal, no ischemia or petechiae Neurologic: pupils equal and round, unable to assess Psychiatric: other (unable to assess re: AMS) CBC and BMP: 10/27/20 07:30 10/27/20 07:30 ABG, PT/INR, D-dimer: ABG ABG pH 7.424 (7.320-7.450) 10/25/20 18:10 POC ABG pCO2 52.3 mmHg (32.0-48.0) H 10/25/20 18:10 ABG pCO2 55.5 mm Hg 10/16/20 05:10 POC ABG pO2 97.1 mmHg (83-108) 10/25/20 18:10 ABG pO2 104.5 mm Hg (80.0-90.0) H 10/16/20 05:10 POC ABG HCO3 33.5 10/25/20 18:10 ABG O2 Saturation 97.4 (0-100) 10/25/20 18:10 PT/INR, D-dimer PT 13.8 Sec. (12.2-14.9) 10/10/20 18:18 INR 1.07 (0.87-1.13) 10/10/20 18:18 D-Dimer 679.5 ng/mlDDU (0-234) H 10/10/20 10:48 Abnormal lab findings: Abnormal Labs 10/10/20 10/10/20 10/10/20 10:46 10:46 10:46 WBC RBC Hgb Hct RDW Lymph % (Auto) [place] % (Auto) Lymph # (Auto) [place] # (Auto) Seg Neutrophils % Lymphocytes % (Manual) Monocytes % (Manual) Seg Neutrophils # Seg Neutrophils # Man Lymphocytes # (Manual) Monocytes # (Manual) D-Dimer Heparin Anti-Xa Level ABG pH POC ABG pCO2 POC ABG pO2 ABG pO2 ABG HCO3 ABG O2 Saturation ABG Base Excess ABG Hemoglobin ABG Oxyhemoglobin ABG Sodium ABG Potassium ABG Chloride ABG Glucose VBG pH Oxyhemoglobin Carboxyhemoglobin Sodium Potassium Chloride Carbon Dioxide BUN Creatinine Glucose POC Glucose Lactic Acid 13.60 H* Calcium Phosphorus Magnesium Total Bilirubin AST ALT Ammonia 214.0 H Lactate Dehydrogenase Total Creatine Kinase CK-MB (CK-2) Troponin T NT-Pro-B Natriuret Pep Total Protein Albumin Triglycerides TSH 6.260 H Arterial Blood Glucose Arterial Blood Ionized Calcium Urine pH Urine WBC (Auto) Urine Creatinine 10/10/20 10/10/20 10/10/20 10:46 10:48 10:48 WBC RBC 5.28 H Hgb 15.5 H Hct 48.8 H RDW Lymph % (Auto) [place] % (Auto) Lymph # (Auto) [place] # (Auto) Seg Neutrophils % Lymphocytes % (Manual) 42.0 H Monocytes % (Manual) Seg Neutrophils # Seg Neutrophils # Man Lymphocytes # (Manual) Monocytes # (Manual) D-Dimer Heparin Anti-Xa Level ABG pH POC ABG pCO2 POC ABG pO2 ABG pO2 ABG HCO3 ABG O2 Saturation ABG Base Excess ABG Hemoglobin ABG Oxyhemoglobin ABG Sodium ABG Potassium ABG Chloride ABG Glucose VBG pH Oxyhemoglobin Carboxyhemoglobin Sodium Potassium 3.3 L Chloride 91.2 L Carbon Dioxide BUN Creatinine 1.8 H Glucose 231 H POC Glucose Lactic Acid Calcium Phosphorus Magnesium Total Bilirubin AST 60 H ALT 57 H Ammonia Lactate Dehydrogenase Total Creatine Kinase CK-MB (CK-2) Troponin T NT-Pro-B Natriuret Pep 1187 H Total Protein 9.0 H Albumin Triglycerides TSH Arterial Blood Glucose Arterial Blood Ionized Calcium Urine pH Urine WBC (Auto) Urine Creatinine 10/10/20 10/10/20 10/10/20 10:48 10:48 10:48 WBC RBC Hgb Hct RDW Lymph % (Auto) [place] % (Auto) Lymph # (Auto) [place] # (Auto) Seg Neutrophils % Lymphocytes % (Manual) Monocytes % (Manual) Seg Neutrophils # Seg Neutrophils # Man Lymphocytes # (Manual) Monocytes # (Manual) D-Dimer 679.5 H Heparin Anti-Xa Level ABG pH POC ABG pCO2 POC ABG pO2 ABG pO2 ABG HCO3 ABG O2 Saturation ABG Base Excess ABG Hemoglobin ABG Oxyhemoglobin ABG Sodium ABG Potassium ABG Chloride ABG Glucose VBG pH 6.870 L* Oxyhemoglobin Carboxyhemoglobin Sodium Potassium Chloride Carbon Dioxide BUN Creatinine Glucose POC Glucose Lactic Acid Calcium Phosphorus Magnesium Total Bilirubin AST ALT Ammonia Lactate Dehydrogenase 386 H Total Creatine Kinase CK-MB (CK-2) Troponin T NT-Pro-B Natriuret Pep Total Protein Albumin Triglycerides TSH Arterial Blood Glucose Arterial Blood Ionized Calcium Urine pH Urine WBC (Auto) Urine Creatinine 10/10/20 10/10/20 10/10/20 14:10 14:20 15:50 WBC RBC Hgb Hct RDW Lymph % (Auto) [place] % (Auto) Lymph # (Auto) [place] # (Auto) Seg Neutrophils % Lymphocytes % (Manual) Monocytes % (Manual) Seg Neutrophils # Seg Neutrophils # Man Lymphocytes # (Manual) Monocytes # (Manual) D-Dimer Heparin Anti-Xa Level ABG pH 7.175 L 7.247 L POC ABG pCO2 85.0 H POC ABG pO2 43.7 L ABG pO2 60.3 L ABG HCO3 32.0 H ABG O2 Saturation 86.1 L ABG Base Excess ABG Hemoglobin ABG Oxyhemoglobin 67.7 L ABG Sodium ABG Potassium ABG Chloride ABG Glucose 247 H VBG pH Oxyhemoglobin 84.4 L Carboxyhemoglobin Sodium Potassium Chloride Carbon Dioxide BUN Creatinine Glucose POC Glucose Lactic Acid 4.00 H* Calcium Phosphorus Magnesium Total Bilirubin AST ALT Ammonia Lactate Dehydrogenase Total Creatine Kinase CK-MB (CK-2) Troponin T NT-Pro-B Natriuret Pep Total Protein Albumin Triglycerides TSH Arterial Blood Glucose 247 H Arterial Blood Ionized Calcium 4.4 L Urine pH Urine WBC (Auto) Urine Creatinine 10/10/20 10/10/20 10/10/20 15:50 16:22 18:18 WBC RBC Hgb Hct RDW Lymph % (Auto) [place] % (Auto) Lymph # (Auto) [place] # (Auto) Seg Neutrophils % Lymphocytes % (Manual) Monocytes % (Manual) Seg Neutrophils # Seg Neutrophils # Man Lymphocytes # (Manual) Monocytes # (Manual) D-Dimer Heparin Anti-Xa Level ABG pH 7.171 L POC ABG pCO2 96.6 H POC ABG pO2 55.3 L ABG pO2 ABG HCO3 ABG O2 Saturation ABG Base Excess ABG Hemoglobin ABG Oxyhemoglobin 81.4 L ABG Sodium ABG Potassium ABG Chloride ABG Glucose 115 H VBG pH Oxyhemoglobin Carboxyhemoglobin Sodium Potassium Chloride Carbon Dioxide BUN Creatinine Glucose POC Glucose 132 H Lactic Acid Calcium Phosphorus Magnesium Total Bilirubin AST ALT Ammonia Lactate Dehydrogenase Total Creatine Kinase 1192 H CK-MB (CK-2) 21.7 H Troponin T 0.377 H* D NT-Pro-B Natriuret Pep Total Protein Albumin Triglycerides TSH Arterial Blood Glucose 115 H Arterial Blood Ionized Calcium Urine pH Urine WBC (Auto) Urine Creatinine 10/10/20 10/10/20 10/10/20 18:18 18:18 22:49 WBC 23.0 H RBC 5.12 H Hgb Hct RDW Lymph % (Auto) [place] % (Auto) Lymph # (Auto) [place] # (Auto) Seg Neutrophils % Lymphocytes % (Manual) 4.0 L Monocytes % (Manual) 9.0 H Seg Neutrophils # Seg Neutrophils # Man 13.8 H Lymphocytes # (Manual) 0.9 L Monocytes # (Manual) 2.1 H D-Dimer Heparin Anti-Xa Level ABG pH POC ABG pCO2 POC ABG pO2 ABG pO2 ABG HCO3 ABG O2 Saturation ABG Base Excess ABG Hemoglobin ABG Oxyhemoglobin ABG Sodium ABG Potassium ABG Chloride ABG Glucose VBG pH Oxyhemoglobin Carboxyhemoglobin Sodium 146 H Potassium Chloride Carbon Dioxide 34 H D BUN 27 H Creatinine 2.7 H Glucose 102 H POC Glucose Lactic Acid Calcium Phosphorus Magnesium Total Bilirubin AST 90 H ALT 66 H Ammonia Lactate Dehydrogenase Total Creatine Kinase CK-MB (CK-2) Troponin T 0.273 H* D NT-Pro-B Natriuret Pep Total Protein Albumin Triglycerides TSH Arterial Blood Glucose Arterial Blood Ionized Calcium Urine pH Urine WBC (Auto) Urine Creatinine 10/11/20 10/11/20 10/11/20 02:00 02:00 02:00 WBC 17.3 H RBC Hgb Hct RDW Lymph % (Auto) 3.9 L [place] % (Auto) Lymph # (Auto) 0.7 L [place] # (Auto) Seg Neutrophils % 93.0 H Lymphocytes % (Manual) Monocytes % (Manual) Seg Neutrophils # 16.1 H Seg Neutrophils # Man Lymphocytes # (Manual) Monocytes # (Manual) D-Dimer Heparin Anti-Xa Level ABG pH POC ABG pCO2 POC ABG pO2 ABG pO2 ABG HCO3 ABG O2 Saturation ABG Base Excess ABG Hemoglobin ABG Oxyhemoglobin ABG Sodium ABG Potassium ABG Chloride ABG Glucose VBG pH Oxyhemoglobin Carboxyhemoglobin Sodium 149 H Potassium 3.3 L Chloride 95.3 L Carbon Dioxide 37 H BUN 29 H Creatinine 2.6 H Glucose POC Glucose Lactic Acid Calcium Phosphorus Magnesium Total Bilirubin AST 80 H ALT 59 H Ammonia Lactate Dehydrogenase Total Creatine Kinase CK-MB (CK-2) Troponin T 0.201 H* D NT-Pro-B Natriuret Pep Total Protein Albumin 3.6 L Triglycerides TSH Arterial Blood Glucose Arterial Blood Ionized Calcium Urine pH Urine WBC (Auto) Urine Creatinine 10/11/20 10/11/20 10/11/20 03:51 08:35 11:15 WBC RBC Hgb Hct RDW Lymph % (Auto) [place] % (Auto) Lymph # (Auto) [place] # (Auto) Seg Neutrophils % Lymphocytes % (Manual) Monocytes % (Manual) Seg Neutrophils # Seg Neutrophils # Man Lymphocytes # (Manual) Monocytes # (Manual) D-Dimer Heparin Anti-Xa Level 0.22 L ABG pH 7.491 H POC ABG pCO2 57.6 H POC ABG pO2 ABG pO2 ABG HCO3 ABG O2 Saturation ABG Base Excess ABG Hemoglobin ABG Oxyhemoglobin ABG Sodium 150.0 H ABG Potassium 3.1 L ABG Chloride 96.0 L ABG Glucose 122 H VBG pH Oxyhemoglobin Carboxyhemoglobin Sodium Potassium Chloride Carbon Dioxide BUN Creatinine Glucose POC Glucose 151 H Lactic Acid Calcium Phosphorus Magnesium Total Bilirubin AST ALT Ammonia Lactate Dehydrogenase Total Creatine Kinase CK-MB (CK-2) Troponin T NT-Pro-B Natriuret Pep Total Protein Albumin Triglycerides TSH Arterial Blood Glucose 122 H Arterial Blood Ionized Calcium 3.9 L Urine pH Urine WBC (Auto) Urine Creatinine 10/11/20 10/11/20 10/11/20 13:30 13:30 13:30 WBC 15.0 H RBC Hgb Hct RDW Lymph % (Auto) [place] % (Auto) Lymph # (Auto) [place] # (Auto) Seg Neutrophils % Lymphocytes % (Manual) Monocytes % (Manual) Seg Neutrophils # Seg Neutrophils # Man Lymphocytes # (Manual) Monocytes # (Manual) D-Dimer Heparin Anti-Xa Level ABG pH POC ABG pCO2 POC ABG pO2 ABG pO2 ABG HCO3 ABG O2 Saturation ABG Base Excess ABG Hemoglobin ABG Oxyhemoglobin ABG Sodium ABG Potassium ABG Chloride ABG Glucose VBG pH Oxyhemoglobin Carboxyhemoglobin Sodium Potassium Chloride Carbon Dioxide BUN Creatinine Glucose POC Glucose Lactic Acid Calcium Phosphorus Magnesium Total Bilirubin AST ALT Ammonia Lactate Dehydrogenase Total Creatine Kinase CK-MB (CK-2) Troponin T NT-Pro-B Natriuret Pep Total Protein Albumin Triglycerides TSH Arterial Blood Glucose Arterial Blood Ionized Calcium Urine pH 9.0 H Urine WBC (Auto) 18.0 H Urine Creatinine 80.5 H 10/11/20 10/11/20 10/12/20 17:17 23:14 03:53 WBC RBC Hgb Hct RDW Lymph % (Auto) [place] % (Auto) Lymph # (Auto) [place] # (Auto) Seg Neutrophils % Lymphocytes % (Manual) Monocytes % (Manual) Seg Neutrophils # Seg Neutrophils # Man Lymphocytes # (Manual) Monocytes # (Manual) D-Dimer Heparin Anti-Xa Level ABG pH 7.545 H POC ABG pCO2 54.6 H POC ABG pO2 231.9 H ABG pO2 ABG HCO3 ABG O2 Saturation ABG Base Excess ABG Hemoglobin ABG Oxyhemoglobin 98.5 H ABG Sodium 150.5 H ABG Potassium 3.2 L ABG Chloride 96.0 L ABG Glucose 148 H VBG pH Oxyhemoglobin Carboxyhemoglobin Sodium Potassium Chloride Carbon Dioxide BUN Creatinine Glucose POC Glucose 121 H 135 H Lactic Acid Calcium Phosphorus Magnesium Total Bilirubin AST ALT Ammonia Lactate Dehydrogenase Total Creatine Kinase CK-MB (CK-2) Troponin T NT-Pro-B Natriuret Pep Total Protein Albumin Triglycerides TSH Arterial Blood Glucose 148 H Arterial Blood Ionized Calcium 3.8 L Urine pH Urine WBC (Auto) Urine Creatinine 10/12/20 10/12/20 10/12/20 04:00 05:10 05:12 WBC 14.3 H RBC Hgb 11.6 L Hct 35.2 L RDW Lymph % (Auto) [place] % (Auto) Lymph # (Auto) [place] # (Auto) Seg Neutrophils % Lymphocytes % (Manual) Monocytes % (Manual) Seg Neutrophils # Seg Neutrophils # Man Lymphocytes # (Manual) Monocytes # (Manual) D-Dimer Heparin Anti-Xa Level ABG pH POC ABG pCO2 POC ABG pO2 ABG pO2 ABG HCO3 ABG O2 Saturation ABG Base Excess ABG Hemoglobin ABG Oxyhemoglobin ABG Sodium ABG Potassium ABG Chloride ABG Glucose VBG pH Oxyhemoglobin Carboxyhemoglobin Sodium 155 H Potassium 3.3 L Chloride 97.9 L Carbon Dioxide 47 H* D BUN 50 H Creatinine 3.4 H Glucose 146 H POC Glucose 137 H Lactic Acid Calcium 8.0 L Phosphorus Magnesium Total Bilirubin AST ALT Ammonia Lactate Dehydrogenase Total Creatine Kinase CK-MB (CK-2) Troponin T 0.125 H* D NT-Pro-B Natriuret Pep Total Protein Albumin Triglycerides TSH Arterial Blood Glucose Arterial Blood Ionized Calcium Urine pH Urine WBC (Auto) Urine Creatinine 10/12/20 10/12/20 10/12/20 11:39 16:01 19:49 WBC RBC Hgb Hct RDW Lymph % (Auto) [place] % (Auto) Lymph # (Auto) [place] # (Auto) Seg Neutrophils % Lymphocytes % (Manual) Monocytes % (Manual) Seg Neutrophils # Seg Neutrophils # Man Lymphocytes # (Manual) Monocytes # (Manual) D-Dimer Heparin Anti-Xa Level ABG pH POC ABG pCO2 POC ABG pO2 ABG pO2 ABG HCO3 ABG O2 Saturation ABG Base Excess ABG Hemoglobin ABG Oxyhemoglobin ABG Sodium ABG Potassium ABG Chloride ABG Glucose VBG pH Oxyhemoglobin Carboxyhemoglobin Sodium 157 H Potassium 3.3 L Chloride Carbon Dioxide 47 H* BUN 52 H Creatinine 3.0 H Glucose 137 H POC Glucose 138 H 119 H Lactic Acid Calcium 8.0 L Phosphorus Magnesium Total Bilirubin AST ALT Ammonia Lactate Dehydrogenase Total Creatine Kinase CK-MB (CK-2) Troponin T NT-Pro-B Natriuret Pep Total Protein Albumin Triglycerides TSH Arterial Blood Glucose Arterial Blood Ionized Calcium Urine pH Urine WBC (Auto) Urine Creatinine 10/12/20 10/13/20 10/13/20 23:37 02:28 04:52 WBC RBC Hgb Hct RDW Lymph % (Auto) [place] % (Auto) Lymph # (Auto) [place] # (Auto) Seg Neutrophils % Lymphocytes % (Manual) Monocytes % (Manual) Seg Neutrophils # Seg Neutrophils # Man Lymphocytes # (Manual) Monocytes # (Manual) D-Dimer Heparin Anti-Xa Level ABG pH 7.485 H POC ABG pCO2 57.1 H POC ABG pO2 ABG pO2 ABG HCO3 ABG O2 Saturation ABG Base Excess ABG Hemoglobin ABG Oxyhemoglobin ABG Sodium 152.4 H ABG Potassium ABG Chloride ABG Glucose 129 H VBG pH Oxyhemoglobin Carboxyhemoglobin Sodium 155 H Potassium Chloride Carbon Dioxide 45 H* BUN 52 H Creatinine 2.7 H Glucose 121 H POC Glucose 131 H Lactic Acid Calcium Phosphorus Magnesium 2.40 H Total Bilirubin AST ALT Ammonia Lactate Dehydrogenase Total Creatine Kinase CK-MB (CK-2) Troponin T NT-Pro-B Natriuret Pep Total Protein Albumin Triglycerides 278 H TSH Arterial Blood Glucose 129 H Arterial Blood Ionized Calcium 4.1 L Urine pH Urine WBC (Auto) Urine Creatinine 10/13/20 10/13/20 10/13/20 04:52 05:13 11:37 WBC 14.7 H RBC Hgb 11.7 L Hct RDW 15.8 H Lymph % (Auto) [place] % (Auto) Lymph # (Auto) [place] # (Auto) Seg Neutrophils % Lymphocytes % (Manual) Monocytes % (Manual) Seg Neutrophils # Seg Neutrophils # Man Lymphocytes # (Manual) Monocytes # (Manual) D-Dimer Heparin Anti-Xa Level ABG pH POC ABG pCO2 POC ABG pO2 ABG pO2 ABG HCO3 ABG O2 Saturation ABG Base Excess ABG Hemoglobin ABG Oxyhemoglobin ABG Sodium ABG Potassium ABG Chloride ABG Glucose VBG pH Oxyhemoglobin Carboxyhemoglobin Sodium Potassium Chloride Carbon Dioxide BUN Creatinine Glucose POC Glucose 116 H 116 H Lactic Acid Calcium Phosphorus Magnesium Total Bilirubin AST ALT Ammonia Lactate Dehydrogenase Total Creatine Kinase CK-MB (CK-2) Troponin T NT-Pro-B Natriuret Pep Total Protein Albumin Triglycerides TSH Arterial Blood Glucose Arterial Blood Ionized Calcium Urine pH Urine WBC (Auto) Urine Creatinine 10/13/20 10/14/20 10/14/20 17:50 03:45 04:46 WBC 11.1 H RBC Hgb Hct RDW 15.3 H Lymph % (Auto) [place] % (Auto) Lymph # (Auto) [place] # (Auto) Seg Neutrophils % Lymphocytes % (Manual) Monocytes % (Manual) Seg Neutrophils # Seg Neutrophils # Man Lymphocytes # (Manual) Monocytes # (Manual) D-Dimer Heparin Anti-Xa Level ABG pH POC ABG pCO2 59.6 H POC ABG pO2 ABG pO2 ABG HCO3 ABG O2 Saturation ABG Base Excess ABG Hemoglobin ABG Oxyhemoglobin ABG Sodium 151.4 H ABG Potassium 3.3 L ABG Chloride ABG Glucose 138 H VBG pH Oxyhemoglobin Carboxyhemoglobin 1.6 H Sodium Potassium Chloride Carbon Dioxide BUN Creatinine Glucose POC Glucose 140 H Lactic Acid Calcium Phosphorus Magnesium Total Bilirubin AST ALT Ammonia Lactate Dehydrogenase Total Creatine Kinase CK-MB (CK-2) Troponin T NT-Pro-B Natriuret Pep Total Protein Albumin Triglycerides TSH Arterial Blood Glucose 138 H Arterial Blood Ionized Calcium 4.5 L Urine pH Urine WBC (Auto) Urine Creatinine 10/14/20 10/14/20 10/14/20 04:46 05:10 11:11 WBC RBC Hgb Hct RDW Lymph % (Auto) [place] % (Auto) Lymph # (Auto) [place] # (Auto) Seg Neutrophils % Lymphocytes % (Manual) Monocytes % (Manual) Seg Neutrophils # Seg Neutrophils # Man Lymphocytes # (Manual) Monocytes # (Manual) D-Dimer Heparin Anti-Xa Level ABG pH POC ABG pCO2 POC ABG pO2 ABG pO2 ABG HCO3 ABG O2 Saturation ABG Base Excess ABG Hemoglobin ABG Oxyhemoglobin ABG Sodium ABG Potassium ABG Chloride ABG Glucose VBG pH Oxyhemoglobin Carboxyhemoglobin Sodium 152 H Potassium 3.5 L Chloride Carbon Dioxide 38 H D BUN 46 H Creatinine 2.3 H Glucose 127 H POC Glucose 116 H 114 H Lactic Acid Calcium Phosphorus Magnesium Total Bilirubin AST ALT Ammonia Lactate Dehydrogenase Total Creatine Kinase CK-MB (CK-2) Troponin T NT-Pro-B Natriuret Pep Total Protein Albumin Triglycerides TSH Arterial Blood Glucose Arterial Blood Ionized Calcium Urine pH Urine WBC (Auto) Urine Creatinine 10/14/20 10/14/20 10/15/20 18:53 23:23 04:12 WBC RBC Hgb Hct RDW Lymph % (Auto) [place] % (Auto) Lymph # (Auto) [place] # (Auto) Seg Neutrophils % Lymphocytes % (Manual) Monocytes % (Manual) Seg Neutrophils # Seg Neutrophils # Man Lymphocytes # (Manual) Monocytes # (Manual) D-Dimer Heparin Anti-Xa Level ABG pH POC ABG pCO2 POC ABG pO2 ABG pO2 ABG HCO3 ABG O2 Saturation ABG Base Excess ABG Hemoglobin ABG Oxyhemoglobin ABG Sodium ABG Potassium ABG Chloride ABG Glucose VBG pH Oxyhemoglobin Carboxyhemoglobin Sodium 149 H Potassium 3.2 L Chloride Carbon Dioxide 37 H BUN 40 H Creatinine 2.0 H Glucose 124 H POC Glucose 128 H 113 H Lactic Acid Calcium Phosphorus Magnesium Total Bilirubin AST ALT Ammonia Lactate Dehydrogenase Total Creatine Kinase CK-MB (CK-2) Troponin T NT-Pro-B Natriuret Pep Total Protein Albumin Triglycerides TSH Arterial Blood Glucose Arterial Blood Ionized Calcium Urine pH Urine WBC (Auto) Urine Creatinine 10/15/20 10/15/20 10/15/20 04:22 11:39 17:36 WBC RBC Hgb Hct RDW Lymph % (Auto) [place] % (Auto) Lymph # (Auto) [place] # (Auto) Seg Neutrophils % Lymphocytes % (Manual) Monocytes % (Manual) Seg Neutrophils # Seg Neutrophils # Man Lymphocytes # (Manual) Monocytes # (Manual) D-Dimer Heparin Anti-Xa Level ABG pH POC ABG pCO2 POC ABG pO2 ABG pO2 115.0 H ABG HCO3 38.1 H ABG O2 Saturation ABG Base Excess 11.3 H ABG Hemoglobin 11.0 L ABG Oxyhemoglobin ABG Sodium ABG Potassium ABG Chloride ABG Glucose VBG pH Oxyhemoglobin Carboxyhemoglobin Sodium Potassium Chloride Carbon Dioxide BUN Creatinine Glucose POC Glucose 123 H 118 H Lactic Acid Calcium Phosphorus Magnesium Total Bilirubin AST ALT Ammonia Lactate Dehydrogenase Total Creatine Kinase CK-MB (CK-2) Troponin T NT-Pro-B Natriuret Pep Total Protein Albumin Triglycerides TSH Arterial Blood Glucose Arterial Blood Ionized Calcium Urine pH Urine WBC (Auto) Urine Creatinine 10/15/20 10/16/20 10/16/20 23:18 03:13 05:10 WBC RBC Hgb Hct RDW Lymph % (Auto) [place] % (Auto) Lymph # (Auto) [place] # (Auto) Seg Neutrophils % Lymphocytes % (Manual) Monocytes % (Manual) Seg Neutrophils # Seg Neutrophils # Man Lymphocytes # (Manual) Monocytes # (Manual) D-Dimer Heparin Anti-Xa Level ABG pH POC ABG pCO2 POC ABG pO2 ABG pO2 104.5 H ABG HCO3 35.1 H ABG O2 Saturation ABG Base Excess 9.5 H ABG Hemoglobin 7.9 L ABG Oxyhemoglobin ABG Sodium ABG Potassium ABG Chloride ABG Glucose VBG pH Oxyhemoglobin Carboxyhemoglobin Sodium Potassium 3.3 L Chloride Carbon Dioxide 33 H BUN 37 H Creatinine 1.4 H Glucose 148 H POC Glucose 135 H Lactic Acid Calcium Phosphorus Magnesium 2.40 H Total Bilirubin AST ALT Ammonia Lactate Dehydrogenase Total Creatine Kinase CK-MB (CK-2) Troponin T NT-Pro-B Natriuret Pep Total Protein Albumin Triglycerides TSH Arterial Blood Glucose Arterial Blood Ionized Calcium Urine pH Urine WBC (Auto) Urine Creatinine 10/16/20 10/16/20 10/16/20 06:36 11:08 17:07 WBC RBC Hgb Hct RDW Lymph % (Auto) [place] % (Auto) Lymph # (Auto) [place] # (Auto) Seg Neutrophils % Lymphocytes % (Manual) Monocytes % (Manual) Seg Neutrophils # Seg Neutrophils # Man Lymphocytes # (Manual) Monocytes # (Manual) D-Dimer Heparin Anti-Xa Level ABG pH POC ABG pCO2 POC ABG pO2 ABG pO2 ABG HCO3 ABG O2 Saturation ABG Base Excess ABG Hemoglobin ABG Oxyhemoglobin ABG Sodium ABG Potassium ABG Chloride ABG Glucose VBG pH Oxyhemoglobin Carboxyhemoglobin Sodium Potassium Chloride Carbon Dioxide BUN Creatinine Glucose POC Glucose 150 H 111 H 132 H Lactic Acid Calcium Phosphorus Magnesium Total Bilirubin AST ALT Ammonia Lactate Dehydrogenase Total Creatine Kinase CK-MB (CK-2) Troponin T NT-Pro-B Natriuret Pep Total Protein Albumin Triglycerides TSH Arterial Blood Glucose Arterial Blood Ionized Calcium Urine pH Urine WBC (Auto) Urine Creatinine 10/16/20 10/17/20 10/17/20 23:38 03:32 03:32 WBC RBC Hgb Hct RDW Lymph % (Auto) [place] % (Auto) Lymph # (Auto) [place] # (Auto) Seg Neutrophils % Lymphocytes % (Manual) Monocytes % (Manual) Seg Neutrophils # Seg Neutrophils # Man Lymphocytes # (Manual) Monocytes # (Manual) D-Dimer Heparin Anti-Xa Level ABG pH POC ABG pCO2 POC ABG pO2 ABG pO2 ABG HCO3 ABG O2 Saturation ABG Base Excess ABG Hemoglobin ABG Oxyhemoglobin ABG Sodium ABG Potassium ABG Chloride ABG Glucose VBG pH Oxyhemoglobin Carboxyhemoglobin Sodium 146 H Potassium Chloride Carbon Dioxide 32 H BUN 57 H Creatinine 2.4 H D Glucose 124 H POC Glucose 117 H Lactic Acid Calcium Phosphorus 5.20 H D Magnesium Total Bilirubin AST ALT Ammonia Lactate Dehydrogenase Total Creatine Kinase CK-MB (CK-2) Troponin T NT-Pro-B Natriuret Pep Total Protein Albumin Triglycerides TSH Arterial Blood Glucose Arterial Blood Ionized Calcium Urine pH Urine WBC (Auto) Urine Creatinine 10/17/20 10/17/20 10/18/20 05:10 17:33 00:13 WBC RBC Hgb Hct RDW Lymph % (Auto) [place] % (Auto) Lymph # (Auto) [place] # (Auto) Seg Neutrophils % Lymphocytes % (Manual) Monocytes % (Manual) Seg Neutrophils # Seg Neutrophils # Man Lymphocytes # (Manual) Monocytes # (Manual) D-Dimer Heparin Anti-Xa Level ABG pH POC ABG pCO2 POC ABG pO2 ABG pO2 ABG HCO3 ABG O2 Saturation ABG Base Excess ABG Hemoglobin ABG Oxyhemoglobin ABG Sodium ABG Potassium ABG Chloride ABG Glucose VBG pH Oxyhemoglobin Carboxyhemoglobin Sodium Potassium Chloride Carbon Dioxide BUN Creatinine Glucose POC Glucose 122 H 121 H 23 L Lactic Acid Calcium Phosphorus Magnesium Total Bilirubin AST ALT Ammonia Lactate Dehydrogenase Total Creatine Kinase CK-MB (CK-2) Troponin T NT-Pro-B Natriuret Pep Total Protein Albumin Triglycerides TSH Arterial Blood Glucose Arterial Blood Ionized Calcium Urine pH Urine WBC (Auto) Urine Creatinine 10/18/20 10/18/20 10/18/20 00:16 03:27 03:27 WBC RBC Hgb 11.7 L Hct RDW Lymph % (Auto) [place] % (Auto) Lymph # (Auto) [place] # (Auto) Seg Neutrophils % Lymphocytes % (Manual) Monocytes % (Manual) Seg Neutrophils # Seg Neutrophils # Man Lymphocytes # (Manual) Monocytes # (Manual) D-Dimer Heparin Anti-Xa Level ABG pH POC ABG pCO2 POC ABG pO2 ABG pO2 ABG HCO3 ABG O2 Saturation ABG Base Excess ABG Hemoglobin ABG Oxyhemoglobin ABG Sodium ABG Potassium ABG Chloride ABG Glucose VBG pH Oxyhemoglobin Carboxyhemoglobin Sodium Potassium Chloride 97.6 L Carbon Dioxide BUN 90 H Creatinine 3.3 H Glucose 146 H POC Glucose 134 H Lactic Acid Calcium Phosphorus Magnesium Total Bilirubin 1.70 H AST ALT Ammonia Lactate Dehydrogenase Total Creatine Kinase CK-MB (CK-2) Troponin T NT-Pro-B Natriuret Pep Total Protein Albumin 3.1 L Triglycerides TSH Arterial Blood Glucose Arterial Blood Ionized Calcium Urine pH Urine WBC (Auto) Urine Creatinine 10/18/20 10/18/20 10/18/20 05:09 11:19 17:15 WBC RBC Hgb Hct RDW Lymph % (Auto) [place] % (Auto) Lymph # (Auto) [place] # (Auto) Seg Neutrophils % Lymphocytes % (Manual) Monocytes % (Manual) Seg Neutrophils # Seg Neutrophils # Man Lymphocytes # (Manual) Monocytes # (Manual) D-Dimer Heparin Anti-Xa Level ABG pH POC ABG pCO2 POC ABG pO2 ABG pO2 ABG HCO3 ABG O2 Saturation ABG Base Excess ABG Hemoglobin ABG Oxyhemoglobin ABG Sodium ABG Potassium ABG Chloride ABG Glucose VBG pH Oxyhemoglobin Carboxyhemoglobin Sodium Potassium Chloride Carbon Dioxide BUN Creatinine Glucose POC Glucose 144 H 145 H 151 H Lactic Acid Calcium Phosphorus Magnesium Total Bilirubin AST ALT Ammonia Lactate Dehydrogenase Total Creatine Kinase CK-MB (CK-2) Troponin T NT-Pro-B Natriuret Pep Total Protein Albumin Triglycerides TSH Arterial Blood Glucose Arterial Blood Ionized Calcium Urine pH Urine WBC (Auto) Urine Creatinine 10/18/20 10/18/20 10/19/20 23:16 Unknown 04:55 WBC RBC Hgb Hct RDW Lymph % (Auto) [place] % (Auto) Lymph # (Auto) [place] # (Auto) Seg Neutrophils % Lymphocytes % (Manual) Monocytes % (Manual) Seg Neutrophils # Seg Neutrophils # Man Lymphocytes # (Manual) Monocytes # (Manual) D-Dimer Heparin Anti-Xa Level ABG pH POC ABG pCO2 POC ABG pO2 ABG pO2 ABG HCO3 ABG O2 Saturation ABG Base Excess ABG Hemoglobin ABG Oxyhemoglobin ABG Sodium ABG Potassium ABG Chloride ABG Glucose VBG pH Oxyhemoglobin Carboxyhemoglobin Sodium Potassium Chloride Carbon Dioxide BUN 104 H Creatinine 3.1 H Glucose 139 H POC Glucose 123 H Lactic Acid Calcium Phosphorus Magnesium Total Bilirubin AST ALT Ammonia Lactate Dehydrogenase Total Creatine Kinase CK-MB (CK-2) Troponin T NT-Pro-B Natriuret Pep Total Protein Albumin Triglycerides TSH Arterial Blood Glucose Arterial Blood Ionized Calcium Urine pH Urine WBC (Auto) 115.0 H Urine Creatinine 10/19/20 10/19/20 10/19/20 04:55 11:35 13:14 WBC 15.1 H RBC Hgb 11.1 L Hct 34.4 L RDW Lymph % (Auto) 4.2 L [place] % (Auto) 11.9 H Lymph # (Auto) 0.6 L [place] # (Auto) 1.8 H Seg Neutrophils % 82.0 H Lymphocytes % (Manual) Monocytes % (Manual) Seg Neutrophils # 12.4 H Seg Neutrophils # Man Lymphocytes # (Manual) Monocytes # (Manual) D-Dimer Heparin Anti-Xa Level ABG pH POC ABG pCO2 POC ABG pO2 ABG pO2 ABG HCO3 ABG O2 Saturation ABG Base Excess ABG Hemoglobin ABG Oxyhemoglobin ABG Sodium ABG Potassium ABG Chloride ABG Glucose VBG pH Oxyhemoglobin Carboxyhemoglobin Sodium Potassium Chloride Carbon Dioxide BUN Creatinine Glucose POC Glucose 136 H Lactic Acid Calcium Phosphorus Magnesium Total Bilirubin AST ALT Ammonia Lactate Dehydrogenase Total Creatine Kinase CK-MB (CK-2) Troponin T NT-Pro-B Natriuret Pep Total Protein Albumin Triglycerides TSH Arterial Blood Glucose Arterial Blood Ionized Calcium Urine pH Urine WBC (Auto) Urine Creatinine 93.7 H 10/19/20 10/19/20 10/20/20 17:53 23:39 04:30 WBC RBC Hgb Hct RDW Lymph % (Auto) [place] % (Auto) Lymph # (Auto) [place] # (Auto) Seg Neutrophils % Lymphocytes % (Manual) Monocytes % (Manual) Seg Neutrophils # Seg Neutrophils # Man Lymphocytes # (Manual) Monocytes # (Manual) D-Dimer Heparin Anti-Xa Level ABG pH POC ABG pCO2 POC ABG pO2 ABG pO2 ABG HCO3 ABG O2 Saturation ABG Base Excess ABG Hemoglobin ABG Oxyhemoglobin ABG Sodium ABG Potassium ABG Chloride ABG Glucose VBG pH Oxyhemoglobin Carboxyhemoglobin Sodium Potassium Chloride Carbon Dioxide BUN 104 H Creatinine 2.8 H Glucose 151 H POC Glucose 137 H 133 H Lactic Acid Calcium Phosphorus Magnesium Total Bilirubin AST ALT Ammonia Lactate Dehydrogenase Total Creatine Kinase CK-MB (CK-2) Troponin T NT-Pro-B Natriuret Pep Total Protein Albumin Triglycerides TSH Arterial Blood Glucose Arterial Blood Ionized Calcium Urine pH Urine WBC (Auto) Urine Creatinine 10/20/20 10/20/20 10/20/20 04:30 05:38 11:34 WBC 17.9 H RBC Hgb 11.7 L Hct RDW Lymph % (Auto) [place] % (Auto) Lymph # (Auto) [place] # (Auto) Seg Neutrophils % Lymphocytes % (Manual) Monocytes % (Manual) Seg Neutrophils # Seg Neutrophils # Man Lymphocytes # (Manual) Monocytes # (Manual) D-Dimer Heparin Anti-Xa Level ABG pH POC ABG pCO2 POC ABG pO2 ABG pO2 ABG HCO3 ABG O2 Saturation ABG Base Excess ABG Hemoglobin ABG Oxyhemoglobin ABG Sodium ABG Potassium ABG Chloride ABG Glucose VBG pH Oxyhemoglobin Carboxyhemoglobin Sodium Potassium Chloride Carbon Dioxide BUN Creatinine Glucose POC Glucose 164 H 148 H Lactic Acid Calcium Phosphorus Magnesium Total Bilirubin AST ALT Ammonia Lactate Dehydrogenase Total Creatine Kinase CK-MB (CK-2) Troponin T NT-Pro-B Natriuret Pep Total Protein Albumin Triglycerides TSH Arterial Blood Glucose Arterial Blood Ionized Calcium Urine pH Urine WBC (Auto) Urine Creatinine 10/20/20 10/20/20 10/20/20 17:40 20:20 23:29 WBC RBC Hgb Hct RDW Lymph % (Auto) [place] % (Auto) Lymph # (Auto) [place] # (Auto) Seg Neutrophils % Lymphocytes % (Manual) Monocytes % (Manual) Seg Neutrophils # Seg Neutrophils # Man Lymphocytes # (Manual) Monocytes # (Manual) D-Dimer Heparin Anti-Xa Level ABG pH 7.292 L POC ABG pCO2 68.5 H POC ABG pO2 ABG pO2 ABG HCO3 ABG O2 Saturation ABG Base Excess ABG Hemoglobin 11.6 L ABG Oxyhemoglobin ABG Sodium ABG Potassium ABG Chloride ABG Glucose 145 H VBG pH Oxyhemoglobin Carboxyhemoglobin Sodium Potassium Chloride Carbon Dioxide BUN Creatinine Glucose POC Glucose 130 H 136 H Lactic Acid Calcium Phosphorus Magnesium Total Bilirubin AST ALT Ammonia Lactate Dehydrogenase Total Creatine Kinase CK-MB (CK-2) Troponin T NT-Pro-B Natriuret Pep Total Protein Albumin Triglycerides TSH Arterial Blood Glucose 145 H Arterial Blood Ionized Calcium Urine pH Urine WBC (Auto) Urine Creatinine 10/21/20 10/21/20 10/21/20 04:20 06:26 06:30 WBC RBC Hgb Hct RDW Lymph % (Auto) [place] % (Auto) Lymph # (Auto) [place] # (Auto) Seg Neutrophils % Lymphocytes % (Manual) Monocytes % (Manual) Seg Neutrophils # Seg Neutrophils # Man Lymphocytes # (Manual) Monocytes # (Manual) D-Dimer Heparin Anti-Xa Level ABG pH 7.262 L POC ABG pCO2 72.4 H POC ABG pO2 81.6 L ABG pO2 ABG HCO3 ABG O2 Saturation ABG Base Excess ABG Hemoglobin 11.6 L ABG Oxyhemoglobin ABG Sodium ABG Potassium ABG Chloride ABG Glucose 140 H VBG pH Oxyhemoglobin Carboxyhemoglobin Sodium Potassium Chloride Carbon Dioxide 33 H BUN 104 H Creatinine 2.9 H Glucose 153 H POC Glucose 128 H Lactic Acid Calcium Phosphorus Magnesium Total Bilirubin AST ALT Ammonia Lactate Dehydrogenase Total Creatine Kinase CK-MB (CK-2) Troponin T NT-Pro-B Natriuret Pep Total Protein Albumin Triglycerides TSH Arterial Blood Glucose 140 H Arterial Blood Ionized Calcium Urine pH Urine WBC (Auto) Urine Creatinine 10/21/20 10/21/20 10/21/20 06:30 11:24 17:21 WBC 13.3 H RBC Hgb 10.7 L Hct 32.7 L RDW Lymph % (Auto) [place] % (Auto) Lymph # (Auto) [place] # (Auto) Seg Neutrophils % Lymphocytes % (Manual) Monocytes % (Manual) Seg Neutrophils # Seg Neutrophils # Man Lymphocytes # (Manual) Monocytes # (Manual) D-Dimer Heparin Anti-Xa Level ABG pH POC ABG pCO2 POC ABG pO2 ABG pO2 ABG HCO3 ABG O2 Saturation ABG Base Excess ABG Hemoglobin ABG Oxyhemoglobin ABG Sodium ABG Potassium ABG Chloride ABG Glucose VBG pH Oxyhemoglobin Carboxyhemoglobin Sodium Potassium Chloride Carbon Dioxide BUN Creatinine Glucose POC Glucose 178 H 138 H Lactic Acid Calcium Phosphorus Magnesium Total Bilirubin AST ALT Ammonia Lactate Dehydrogenase Total Creatine Kinase CK-MB (CK-2) Troponin T NT-Pro-B Natriuret Pep Total Protein Albumin Triglycerides TSH Arterial Blood Glucose Arterial Blood Ionized Calcium Urine pH Urine WBC (Auto) Urine Creatinine 10/22/20 10/22/20 10/22/20 00:05 04:30 06:15 WBC RBC Hgb Hct RDW Lymph % (Auto) [place] % (Auto) Lymph # (Auto) [place] # (Auto) Seg Neutrophils % Lymphocytes % (Manual) Monocytes % (Manual) Seg Neutrophils # Seg Neutrophils # Man Lymphocytes # (Manual) Monocytes # (Manual) D-Dimer Heparin Anti-Xa Level ABG pH 7.225 L POC ABG pCO2 76.6 H POC ABG pO2 ABG pO2 ABG HCO3 ABG O2 Saturation ABG Base Excess ABG Hemoglobin 11.1 L ABG Oxyhemoglobin ABG Sodium ABG Potassium ABG Chloride ABG Glucose 151 H VBG pH Oxyhemoglobin Carboxyhemoglobin Sodium Potassium Chloride Carbon Dioxide 32 H BUN 103 H Creatinine 2.7 H Glucose 151 H POC Glucose 135 H Lactic Acid Calcium Phosphorus Magnesium Total Bilirubin AST ALT Ammonia Lactate Dehydrogenase Total Creatine Kinase CK-MB (CK-2) Troponin T NT-Pro-B Natriuret Pep Total Protein Albumin Triglycerides TSH Arterial Blood Glucose 151 H Arterial Blood Ionized Calcium Urine pH Urine WBC (Auto) Urine Creatinine 10/22/20 10/22/20 10/22/20 06:18 11:34 11:44 WBC RBC Hgb Hct RDW Lymph % (Auto) [place] % (Auto) Lymph # (Auto) [place] # (Auto) Seg Neutrophils % Lymphocytes % (Manual) Monocytes % (Manual) Seg Neutrophils # Seg Neutrophils # Man Lymphocytes # (Manual) Monocytes # (Manual) D-Dimer Heparin Anti-Xa Level ABG pH 7.278 L POC ABG pCO2 67.8 H POC ABG pO2 ABG pO2 ABG HCO3 ABG O2 Saturation ABG Base Excess ABG Hemoglobin 10.2 L ABG Oxyhemoglobin ABG Sodium ABG Potassium ABG Chloride ABG Glucose 172 H VBG pH Oxyhemoglobin Carboxyhemoglobin Sodium Potassium Chloride Carbon Dioxide BUN Creatinine Glucose POC Glucose 137 H 147 H Lactic Acid Calcium Phosphorus Magnesium Total Bilirubin AST ALT Ammonia Lactate Dehydrogenase Total Creatine Kinase CK-MB (CK-2) Troponin T NT-Pro-B Natriuret Pep Total Protein Albumin Triglycerides TSH Arterial Blood Glucose 172 H Arterial Blood Ionized Calcium Urine pH Urine WBC (Auto) Urine Creatinine 10/22/20 10/22/20 10/23/20 17:40 23:55 05:11 WBC RBC Hgb Hct RDW Lymph % (Auto) [place] % (Auto) Lymph # (Auto) [place] # (Auto) Seg Neutrophils % Lymphocytes % (Manual) Monocytes % (Manual) Seg Neutrophils # Seg Neutrophils # Man Lymphocytes # (Manual) Monocytes # (Manual) D-Dimer Heparin Anti-Xa Level ABG pH POC ABG pCO2 63.6 H POC ABG pO2 81.2 L ABG pO2 ABG HCO3 ABG O2 Saturation ABG Base Excess ABG Hemoglobin 10.6 L ABG Oxyhemoglobin ABG Sodium ABG Potassium ABG Chloride 109.0 H ABG Glucose 149 H VBG pH Oxyhemoglobin Carboxyhemoglobin Sodium Potassium Chloride Carbon Dioxide BUN Creatinine Glucose POC Glucose 141 H 139 H Lactic Acid Calcium Phosphorus Magnesium Total Bilirubin AST ALT Ammonia Lactate Dehydrogenase Total Creatine Kinase CK-MB (CK-2) Troponin T NT-Pro-B Natriuret Pep Total Protein Albumin Triglycerides TSH Arterial Blood Glucose 149 H Arterial Blood Ionized Calcium Urine pH Urine WBC (Auto) Urine Creatinine 10/23/20 10/23/20 10/23/20 05:39 06:00 11:32 WBC RBC Hgb Hct RDW Lymph % (Auto) [place] % (Auto) Lymph # (Auto) [place] # (Auto) Seg Neutrophils % Lymphocytes % (Manual) Monocytes % (Manual) Seg Neutrophils # Seg Neutrophils # Man Lymphocytes # (Manual) Monocytes # (Manual) D-Dimer Heparin Anti-Xa Level ABG pH POC ABG pCO2 POC ABG pO2 ABG pO2 ABG HCO3 ABG O2 Saturation ABG Base Excess ABG Hemoglobin ABG Oxyhemoglobin ABG Sodium ABG Potassium ABG Chloride ABG Glucose VBG pH Oxyhemoglobin Carboxyhemoglobin Sodium 146 H Potassium Chloride Carbon Dioxide 35 H BUN 92 H Creatinine 2.0 H Glucose 144 H POC Glucose 139 H 176 H Lactic Acid Calcium Phosphorus Magnesium Total Bilirubin AST ALT Ammonia Lactate Dehydrogenase Total Creatine Kinase CK-MB (CK-2) Troponin T NT-Pro-B Natriuret Pep Total Protein Albumin Triglycerides TSH Arterial Blood Glucose Arterial Blood Ionized Calcium Urine pH Urine WBC (Auto) Urine Creatinine 10/23/20 10/23/20 10/24/20 11:34 17:55 05:33 WBC RBC Hgb Hct RDW Lymph % (Auto) [place] % (Auto) Lymph # (Auto) [place] # (Auto) Seg Neutrophils % Lymphocytes % (Manual) Monocytes % (Manual) Seg Neutrophils # Seg Neutrophils # Man Lymphocytes # (Manual) Monocytes # (Manual) D-Dimer Heparin Anti-Xa Level ABG pH POC ABG pCO2 POC ABG pO2 ABG pO2 ABG HCO3 ABG O2 Saturation ABG Base Excess ABG Hemoglobin ABG Oxyhemoglobin ABG Sodium ABG Potassium ABG Chloride ABG Glucose VBG pH Oxyhemoglobin Carboxyhemoglobin Sodium 147 H Potassium Chloride Carbon Dioxide 32 H BUN 76 H Creatinine 1.7 H Glucose 172 H POC Glucose 173 H 135 H Lactic Acid Calcium Phosphorus Magnesium Total Bilirubin AST ALT Ammonia Lactate Dehydrogenase Total Creatine Kinase CK-MB (CK-2) Troponin T NT-Pro-B Natriuret Pep Total Protein Albumin Triglycerides TSH Arterial Blood Glucose Arterial Blood Ionized Calcium Urine pH Urine WBC (Auto) Urine Creatinine 10/24/20 10/24/20 10/24/20 05:41 12:09 18:09 WBC RBC Hgb Hct RDW Lymph % (Auto) [place] % (Auto) Lymph # (Auto) [place] # (Auto) Seg Neutrophils % Lymphocytes % (Manual) Monocytes % (Manual) Seg Neutrophils # Seg Neutrophils # Man Lymphocytes # (Manual) Monocytes # (Manual) D-Dimer Heparin Anti-Xa Level ABG pH POC ABG pCO2 POC ABG pO2 ABG pO2 ABG HCO3 ABG O2 Saturation ABG Base Excess ABG Hemoglobin ABG Oxyhemoglobin ABG Sodium ABG Potassium ABG Chloride ABG Glucose VBG pH Oxyhemoglobin Carboxyhemoglobin Sodium Potassium Chloride Carbon Dioxide BUN Creatinine Glucose POC Glucose 156 H 154 H 132 H Lactic Acid Calcium Phosphorus Magnesium Total Bilirubin AST ALT Ammonia Lactate Dehydrogenase Total Creatine Kinase CK-MB (CK-2) Troponin T NT-Pro-B Natriuret Pep Total Protein Albumin Triglycerides TSH Arterial Blood Glucose Arterial Blood Ionized Calcium Urine pH Urine WBC (Auto) Urine Creatinine 10/24/20 10/25/20 10/25/20 23:39 05:29 08:55 WBC RBC Hgb Hct RDW Lymph % (Auto) [place] % (Auto) Lymph # (Auto) [place] # (Auto) Seg Neutrophils % Lymphocytes % (Manual) Monocytes % (Manual) Seg Neutrophils # Seg Neutrophils # Man Lymphocytes # (Manual) Monocytes # (Manual) D-Dimer Heparin Anti-Xa Level ABG pH POC ABG pCO2 POC ABG pO2 ABG pO2 ABG HCO3 ABG O2 Saturation ABG Base Excess ABG Hemoglobin ABG Oxyhemoglobin ABG Sodium ABG Potassium ABG Chloride ABG Glucose VBG pH Oxyhemoglobin Carboxyhemoglobin Sodium 150 H Potassium Chloride 108.3 H Carbon Dioxide 32 H BUN 57 H Creatinine 1.5 H Glucose 142 H POC Glucose 131 H 142 H Lactic Acid Calcium Phosphorus Magnesium Total Bilirubin AST ALT Ammonia Lactate Dehydrogenase Total Creatine Kinase CK-MB (CK-2) Troponin T NT-Pro-B Natriuret Pep Total Protein Albumin Triglycerides TSH Arterial Blood Glucose Arterial Blood Ionized Calcium Urine pH Urine WBC (Auto) Urine Creatinine 10/25/20 10/25/20 10/25/20 08:55 11:08 18:10 WBC 14.3 H RBC 3.57 L Hgb 10.3 L Hct 31.6 L RDW Lymph % (Auto) [place] % (Auto) Lymph # (Auto) [place] # (Auto) Seg Neutrophils % Lymphocytes % (Manual) Monocytes % (Manual) Seg Neutrophils # Seg Neutrophils # Man Lymphocytes # (Manual) Monocytes # (Manual) D-Dimer Heparin Anti-Xa Level ABG pH POC ABG pCO2 52.3 H POC ABG pO2 ABG pO2 ABG HCO3 ABG O2 Saturation ABG Base Excess ABG Hemoglobin 11.2 L ABG Oxyhemoglobin ABG Sodium ABG Potassium ABG Chloride 108.0 H ABG Glucose 167 H VBG pH Oxyhemoglobin Carboxyhemoglobin Sodium Potassium Chloride Carbon Dioxide BUN Creatinine Glucose POC Glucose 157 H Lactic Acid Calcium Phosphorus Magnesium Total Bilirubin AST ALT Ammonia Lactate Dehydrogenase Total Creatine Kinase CK-MB (CK-2) Troponin T NT-Pro-B Natriuret Pep Total Protein Albumin Triglycerides TSH Arterial Blood Glucose 167 H Arterial Blood Ionized Calcium Urine pH Urine WBC (Auto) Urine Creatinine 10/25/20 10/26/20 10/26/20 18:20 00:20 06:08 WBC RBC Hgb Hct RDW Lymph % (Auto) [place] % (Auto) Lymph # (Auto) [place] # (Auto) Seg Neutrophils % Lymphocytes % (Manual) Monocytes % (Manual) Seg Neutrophils # Seg Neutrophils # Man Lymphocytes # (Manual) Monocytes # (Manual) D-Dimer Heparin Anti-Xa Level ABG pH POC ABG pCO2 POC ABG pO2 ABG pO2 ABG HCO3 ABG O2 Saturation ABG Base Excess ABG Hemoglobin ABG Oxyhemoglobin ABG Sodium ABG Potassium ABG Chloride ABG Glucose VBG pH Oxyhemoglobin Carboxyhemoglobin Sodium Potassium Chloride Carbon Dioxide BUN Creatinine Glucose POC Glucose 127 H 108 H 119 H Lactic Acid Calcium Phosphorus Magnesium Total Bilirubin AST ALT Ammonia Lactate Dehydrogenase Total Creatine Kinase CK-MB (CK-2) Troponin T NT-Pro-B Natriuret Pep Total Protein Albumin Triglycerides TSH Arterial Blood Glucose Arterial Blood Ionized Calcium Urine pH Urine WBC (Auto) Urine Creatinine 10/26/20 10/26/20 10/26/20 07:38 07:38 11:28 WBC 13.5 H RBC 3.37 L Hgb 9.8 L Hct 30.0 L RDW Lymph % (Auto) [place] % (Auto) Lymph # (Auto) [place] # (Auto) Seg Neutrophils % Lymphocytes % (Manual) Monocytes % (Manual) Seg Neutrophils # Seg Neutrophils # Man Lymphocytes # (Manual) Monocytes # (Manual) D-Dimer Heparin Anti-Xa Level ABG pH POC ABG pCO2 POC ABG pO2 ABG pO2 ABG HCO3 ABG O2 Saturation ABG Base Excess ABG Hemoglobin ABG Oxyhemoglobin ABG Sodium ABG Potassium ABG Chloride ABG Glucose VBG pH Oxyhemoglobin Carboxyhemoglobin Sodium 149 H Potassium Chloride 107.6 H Carbon Dioxide 34 H BUN 49 H Creatinine 1.4 H Glucose 137 H POC Glucose 148 H Lactic Acid Calcium Phosphorus Magnesium Total Bilirubin AST ALT Ammonia Lactate Dehydrogenase Total Creatine Kinase CK-MB (CK-2) Troponin T NT-Pro-B Natriuret Pep Total Protein Albumin Triglycerides TSH Arterial Blood Glucose Arterial Blood Ionized Calcium Urine pH Urine WBC (Auto) Urine Creatinine 10/26/20 10/26/20 10/27/20 18:17 23:37 05:08 WBC RBC Hgb Hct RDW Lymph % (Auto) [place] % (Auto) Lymph # (Auto) [place] # (Auto) Seg Neutrophils % Lymphocytes % (Manual) Monocytes % (Manual) Seg Neutrophils # Seg Neutrophils # Man Lymphocytes # (Manual) Monocytes # (Manual) D-Dimer Heparin Anti-Xa Level ABG pH POC ABG pCO2 POC ABG pO2 ABG pO2 ABG HCO3 ABG O2 Saturation ABG Base Excess ABG Hemoglobin ABG Oxyhemoglobin ABG Sodium ABG Potassium ABG Chloride ABG Glucose VBG pH Oxyhemoglobin Carboxyhemoglobin Sodium Potassium Chloride Carbon Dioxide BUN Creatinine Glucose POC Glucose 121 H 152 H 120 H Lactic Acid Calcium Phosphorus Magnesium Total Bilirubin AST ALT Ammonia Lactate Dehydrogenase Total Creatine Kinase CK-MB (CK-2) Troponin T NT-Pro-B Natriuret Pep Total Protein Albumin Triglycerides TSH Arterial Blood Glucose Arterial Blood Ionized Calcium Urine pH Urine WBC (Auto) Urine Creatinine 10/27/20 10/27/20 10/27/20 07:30 07:30 11:59 WBC RBC 3.46 L Hgb 10.2 L Hct 30.9 L RDW Lymph % (Auto) [place] % (Auto) Lymph # (Auto) [place] # (Auto) Seg Neutrophils % Lymphocytes % (Manual) Monocytes % (Manual) Seg Neutrophils # Seg Neutrophils # Man Lymphocytes # (Manual) Monocytes # (Manual) D-Dimer Heparin Anti-Xa Level ABG pH POC ABG pCO2 POC ABG pO2 ABG pO2 ABG HCO3 ABG O2 Saturation ABG Base Excess ABG Hemoglobin ABG Oxyhemoglobin ABG Sodium ABG Potassium ABG Chloride ABG Glucose VBG pH Oxyhemoglobin Carboxyhemoglobin Sodium 146 H Potassium Chloride Carbon Dioxide 34 H BUN 45 H Creatinine Glucose 131 H POC Glucose 143 H Lactic Acid Calcium Phosphorus Magnesium Total Bilirubin AST ALT Ammonia Lactate Dehydrogenase Total Creatine Kinase CK-MB (CK-2) Troponin T NT-Pro-B Natriuret Pep Total Protein Albumin Triglycerides TSH Arterial Blood Glucose Arterial Blood Ionized Calcium Urine pH Urine WBC (Auto) Urine Creatinine Chest x-ray: other (none today) Allied health notes reviewed: nursing
--- NOTE | 2020-10-27 18:37 | Post Anesthesia Evaluation ---
- Post Anesthesia Evaluation Patient Participated: No (sedated) Airway Patent: Yes Stable Respiratory Function: Yes Nausea/Vomiting: No (unable to assess) Temp > 96.8F: Yes Pain Manageable: Yes Adequeate Hydration: Yes Anesthesia Complications: No Block Receding Appropriately: Not Applicable Patient on Ventilator: Yes (placed on vent by RT) Other Comments: Transported from OR to ICU by myself, AA, OR and PACU RNs w/ VS monitored and stable, respirations assisted via AMBU. Report given to RT and [employer]. VS stable at pre-procedure baseline at time of transfer.
[2020-10-28] MEDS: fentaNYL DRIP Premix 2,000 MCG/100 ML BAG IV SCH (00:32)
[2020-10-28] MEDS: hydrALAZINE 25 MG TAB PO SCH ×3 (06:02→22:38)
[2020-10-28] MEDS: GLYCOPYRROLATE 1 MG TAB PO SCH ×4 (06:03→22:38)
[2020-10-28] MEDS: levETIRAcetam 500 MG in DEXTROSE 5% IN WATER 100 ML IV SCH ×2 (06:04→18:25)
[2020-10-28] MEDS: HEPARIN 5,000 UNIT/1 ML VIAL SUB-Q SCH ×3 (06:12→22:39)
[2020-10-28] MEDS: METOPROLOL TARTRATE 50 MG TAB PO SCH ×3 (08:02→22:39)
[2020-10-28 08:23] LABS: INR 1.05 (0.87-1.13)
[2020-10-28 08:30] LABS: BUN/Creatinine Ratio 33; Blood Urea Nitrogen 39 mg/dL (9-20); Calcium 9.2 mg/dL (8.4-10.2); Hemolysis Index 1
[2020-10-28 09:09] LABS: Hematocrit 32.1 % (35.5-45.6); Hemoglobin 10.5 gm/dl (11.8-15.2); Mean Corpuscular HGB Conc 33 % (32-34); Mean Corpuscular Volume 90 fl (84-94); Platelet Count 279 K/mm3 (140-440); Red Blood Count 3.58 M/mm3 (3.65-5.03); Red Cell Distribution Width 14.9 % (13.2-15.2)
[2020-10-28] MEDS: POLYETHYLENE GLYCOL 3350 17 GM POWDER PO SCH (09:41)
[2020-10-28] MEDS: DOCUSATE SODIUM 100 MG/10 ML ORAL LIQD PO SCH ×2 (09:41→22:39)
[2020-10-28] MEDS: LANSOPRAZOLE 30 MG SOLUTAB FEEDTUBE SCH ×2 (09:42→22:39)
[2020-10-28] MEDS: LINEZOLID 600 MG/300 ML BAG IV SCH ×2 (09:42→22:39)
[2020-10-28] MEDS: amLODIPine 10 MG TAB PO SCH (09:42)
--- NOTE | 2020-10-28 10:48 | Progress Note ---
Assessment and Plan he pt is a 55-year-old -[place] male with a past medical history of hypertension, asthma, obesity. He is intubated and sedated on evaluation and thus HPI is obtained per the chart. Pt presented to ED after Covid vaccine and passed out with seizure like activity in the car at the emergency room bay. Patient was found to be unresponsive and with no pulse. ACLS protocol was initiated from the car to the emergency room with continued ACLS protocol. Patient was intubated and after couple of epi ROSC obtained. Central line was p laced and patient was also started on pressors. Patient did not have any fever shortness of breath or cough or any symptoms prior to the COVID-19 vaccination. Patient coded twice in the emergency room. One before the imaging studies and once after the imaging studies. Pt remains intubated, intermittently sedated, intermittent blinking of eyes to painful stimulus (sternal rub) noted. Neurology f/u noted - pt with suspected anoxic brain injury. Brain MRI shows diffuse restricted diffusion and increased T2 signal in the cerebral cortex, findings can be seen in setting of anoxic brain injury and/or status epilepticus. Per primary team, pt is not tolerating weaning from ventilator. Pt is being considered for Trach & Peg. Pt is moderate cardiovascular risk patient going for moderate risk procedure. no cardiac contraindications for trach and peg. tte reviewed - EF 55-60%, mod LVH, mild diastolic dysfunction. Pt is s/p Trach and PEG placement. Unresponsive. Tele reviewed: SR 68. No events. Continue present cardiac management. Agree with Amlodipine, Clonidine patch and Hydralazine 50mg PO TID. Continue Metoprolol 100mg TID. No systemic AC at this time in regards to paroxysmal AFib/AFlutter given h/o GI bleeding while on heparin gtt. GI team is following. Continue supportive measures. Pt is in stable cardiac status. Nothing further to add from cardiology standpoint. Will follow on as needed basis over the weekend. The patient has been seen in conjunction with Dr. Mercedes who agrees with the assessment and plan of care. - Patient Problems (1) AMS (altered mental status) Current Visit: Yes Status: Acute (2) Cardiopulmonary arrest with successful resuscitation Current Visit: Yes Status: Acute (3) Acute respiratory failure Current Visit: Yes Status: Acute Qualifiers: Respiratory failure complication: hypoxia and hypercapnia Qualified Code(s): J96.01 - Acute respiratory failure with hypoxia; J96.02 - Acute respiratory failure with hypercapnia (4) Bilateral pneumonia Current Visit: Yes Status: Acute (5) Sepsis with hypotension Current Visit: Yes Status: Acute (6) Person under investigation for COVID-19 Current Visit: Yes Status: Ruled-out (7) Seizure Current Visit: Yes Status: Suspected (8) NSTEMI (non-ST elevated myocardial infarction) Current Visit: Yes Status: Acute (9) MOE (acute kidney injury) Current Visit: Yes Status: Acute (10) GI bleed Current Visit: Yes Status: Acute (11) Acute heart failure with preserved ejection fraction (HFpEF) Current Visit: Yes Status: Acute (12) Hypernatremia Current Visit: Yes Status: Acute (13) Atrial fibrillation and flutter Current Visit: Yes Status: Acute (14) Anemia Current Visit: Yes Status: Acute Subjective Date of service: 10/28/20 Principal diagnosis: Cardiac arrest; Septic Shock; Ac. hypoxemic & hypercapnic resp failure; MOE Interval history: Pt is s/p Trach and PEG placement. Unresponsive. Tele reviewed: SR 68. No events. Objective Last Vital Signs Temp 98.3 F 10/28/20 07:46 Pulse 65 10/28/20 10:00 Resp 12 10/28/20 10:00 BP 171/90 10/28/20 10:00 Pulse Ox 99 10/28/20 10:00 - Physical Examination General: Other (intubated) HEENT: Positive: Normocephaly Neck: Positive: neck supple, trachea midline, Other (Tracheostomy in place.) Cardiac: Positive: Reg Rate and Rhythm, S1/S2 Lungs: Positive: Ventilated Respirations Neuro: Positive: Other (intubated) Abdomen: Positive: Soft, Active Bowel Sounds Skin: Negative: Rash Extremities: Present: upper extr. pulses, lower extr. pulses. Absent: edema - Labs and Meds Coagulation 10/28/20 Range/Units 07:00 PT 13.5 (12.2-14.9) Sec. INR 1.05 (0.87-1.13) CBC 10/28/20 Range/Units 09:00 WBC 12.5 H (4.5-11.0) K/mm3 RBC 3.58 L (3.65-5.03) M/mm3 Hgb 10.5 L (11.8-15.2) gm/dl Hct 32.1 L (35.5-45.6) % Plt Count 279 (140-440) K/mm3 Comprehensive Metabolic Panel 10/28/20 Range/Units 07:00 Sodium 147 H (137-145) mmol/L Potassium 4.2 (3.6-5.0) mmol/L Chloride 104.6 (98-107) mmol/L Carbon Dioxide 35 H (22-30) mmol/L BUN 39 H (9-20) mg/dL Creatinine 1.2 (0.8-1.3) mg/dL Glucose 133 H (75-100) mg/dL Calcium 9.2 (8.4-10.2) mg/dL - Imaging and Cardiology EKG: report reviewed, image reviewed Echo: report reviewed (10/10/2020 - mod LVH, EF 55-60%, mild diastolic dysfunction) - Telemetry EKG Rhythm: Sinus Rhythm - EKG Sinus rhythms and dysrhythmias: sinus rhythm Repolarization changes or abnormalities: ST suggestive of injury, Q-T interval prolongation - Allied health notes Allied health notes reviewed: nursing
--- NOTE | 2020-10-28 11:16 | Progress Note ---
Assessment and Plan 1. Acute kidney injury: Vasomotor MOE in the setting of Cardiac arrest and shock. Renal US negative for hydro. Monitor renal function. BUN and Creatinine level are much better. Avoid nephrotoxic agents. Meds dosage based on GFR. 2. FEN: Volume overload, improved, monitor. Hypernatremia, continue water flushes, monitor. Monitor lytes and volume status. 3. Acute hypoxic respiratory failure, POA: 2/2 PNA and CHF. COVID test negative. S/p Trached. 4. Sepsis, POA: 2/2 PNA. Abx. 5. NSTEMI type II: Post cardiac arrest EKG showed no acute ischemic changes. Followed by Cards. 6. Acute CHF: Echo showed Normal EF and mild DD. 7. S/p Cardiac arrest. 8. A.fib / A.flutter: Metoprolol. 9. Anoxic encephalopathy: Seen by Neuro. 10. GI bleed: Seen by GI. 11. Elevated Transaminases: Improved. 12. HTN: Monitor. Adjust meds as needed. Will sign off. Please call with any questions. D/w [employer]. Subjective: Patient was seen and examined at the bedside. Objective: General appearance: well-developed, appears stated age, Trached on vent HEENT: ATNC, pupils equal Neck: trached Respiratory: ctab Heart: regular, S1S2, no murmur Gastrointestinal: soft, normoactive bowel sounds, not tender, PEG tube noted Integumentary: no rash, warm and dry Ext: trace extremity edema Neurologic: not responding Musculoskeletal: no obvious deformity Subjective Date of service: 10/28/20 Principal diagnosis: Cardiac arrest; Septic Shock; Ac. hypoxemic & hypercapnic resp failure; MOE Objective - Vital Signs Vital signs: Vital Signs - 12hr 10/27/20 10/27/20 10/27/20 23:30 23:38 23:41 Temperature 98.8 F Pulse Rate 62 61 Pulse Rate [ From Monitor] Respiratory 16 Rate Blood Pressure 188/134 188/134 O2 Sat by Pulse 96 97 Oximetry 10/28/20 10/28/20 10/28/20 00:00 00:30 01:00 Temperature Pulse Rate 64 64 66 Pulse Rate [ 66 From Monitor] Respiratory 16 18 15 Rate Blood Pressure 147/90 136/84 130/82 O2 Sat by Pulse 97 96 96 Oximetry 04/10/28/20 10/28/20 01:30 02:00 02:30 Temperature Pulse Rate 64 63 67 Pulse Rate [ From Monitor] Respiratory 14 15 15 Rate Blood Pressure 130/82 148/95 148/90 O2 Sat by Pulse 97 96 96 Oximetry 10/28/20 10/28/20 10/28/20 03:00 03:16 03:30 Temperature 98.9 F Pulse Rate 67 66 Pulse Rate [ From Monitor] Respiratory 16 15 Rate Blood Pressure 148/90 146/87 O2 Sat by Pulse 97 97 Oximetry 10/28/20 10/28/20 10/28/20 04:00 04:30 05:00 Temperature Pulse Rate 66 66 70 Pulse Rate [ 76 From Monitor] Respiratory 15 14 17 Rate Blood Pressure 146/87 167/97 174/102 O2 Sat by Pulse 96 96 96 Oximetry 10/28/20 10/28/20 10/28/20 05:30 05:39 06:00 Temperature Pulse Rate 72 65 79 Pulse Rate [ From Monitor] Respiratory 18 19 Rate Blood Pressure 157/99 146/87 167/104 O2 Sat by Pulse 96 97 93 Oximetry 10/28/20 10/28/20 10/28/20 06:02 06:30 07:00 Temperature Pulse Rate 76 74 73 Pulse Rate [ From Monitor] Respiratory 17 17 Rate Blood Pressure 179/111 179/111 153/96 O2 Sat by Pulse 94 95 Oximetry 10/28/20 10/28/20 10/28/20 07:30 07:35 07:46 Temperature 98.3 F Pulse Rate 72 72 Pulse Rate [ From Monitor] Respiratory 17 Rate Blood Pressure 162/107 153/96 O2 Sat by Pulse 96 96 Oximetry 10/28/20 10/28/20 10/28/20 08:00 08:02 08:30 Temperature Pulse Rate 78 74 72 Pulse Rate [ From Monitor] Respiratory 15 13 Rate Blood Pressure 152/84 169/99 169/99 O2 Sat by Pulse 97 96 Oximetry 10/28/20 10/28/20 10/28/20 09:00 09:30 09:42 Temperature Pulse Rate 64 67 65 Pulse Rate [ From Monitor] Respiratory 15 15 Rate Blood Pressure 170/89 171/90 171/90 O2 Sat by Pulse 97 97 Oximetry 10/28/20 10:00 Temperature Pulse Rate 65 Pulse Rate [ From Monitor] Respiratory 12 Rate Blood Pressure 171/90 O2 Sat by Pulse 99 Oximetry - Lab 10/28/20 09:00 10/28/20 07:00 Most recent lab results ABG pH 7.424 (7.320-7.450) 10/25/20 18:10 ABG pCO2 55.5 mm Hg 10/16/20 05:10 ABG pO2 104.5 mm Hg (80.0-90.0) H 10/16/20 05:10 ABG HCO3 35.1 mmol/L (20.0-26.0) H 10/16/20 05:10 ABG O2 Saturation 97.4 (0-100) 10/25/20 18:10 Calcium 9.2 mg/dL (8.4-10.2) 10/28/20 07:00 Phosphorus 5.20 mg/dL (2.5-4.5) H D 10/17/20 03:32 Magnesium 2.30 mg/dL (1.7-2.3) 10/17/20 03:32 Urine Creatinine 93.7 mg/dL (0.1-20.0) H 10/19/20 13:14 Urine Sodium 25 mmol/L 10/19/20 13:14 Medications & Allergies - Medications Allergies/Adverse Reactions: Allergies No Known Allergies Allergy (Unverified 07/06/13 15:19) Home Medications: Home Medications Medication Instructions Recorded Confirmed Last Taken Type Colchicine [Colcrys] QDAY 10/21/20 Unknown History Eplerenone [Inspra] 50 mg PO 10/21/20 Unknown History HYDROcodone/APAP 5-325 [Arma 1 each PO Q8HR PRN 10/21/20 10/21/20 Unknown History 5/325] Leflunomide [Arava] 20 mg PO QDAY 10/21/20 10/21/20 3 Weeks Ago History ~09/30/20 20 mg Rosuvastatin (Nf) [Crestor] 20 mg PO QHS 10/21/20 10/21/20 3 Weeks Ago History ~09/30/20 20 mg Torsemide [Demadex] 20 mg PO 10/21/20 Unknown History allopurinoL [Zyloprim] QDAY 10/21/20 Unknown History amLODIPine 5 mg PO BID 10/21/20 10/21/20 3 Weeks Ago History ~09/30/20 5 mg carvediloL [Coreg] 25 mg PO QDAY 10/21/20 10/21/20 3 Weeks Ago History ~09/30/20 25 mg metFORMIN [Glucophage] 500 mg PO QDAY 10/21/20 10/21/20 Unknown History Active Medications: Generic Name Dose Route Start Last Admin Trade Name Freq PRN Reason Stop Dose Admin Acetaminophen 650 mg 10/10/20 21:51 10/20/20 09:11 Acetaminophen 325 Mg Tab PO 650 mg Q4H PRN Administration Pain MILD(1-3)/Fever >100.5/SALVADOR Acetaminophen 650 mg 10/11/20 11:24 10/17/20 17:16 Acetaminophen 650 Mg Rect Supp [place] 650 mg Q6H PRN Administration Fever >101 Albuterol 2.5 mg 10/11/20 13:12 Albuterol 2.5 Mg/3 Ml Nebu IH Q6HRT PRN Shortness Of Breath Amlodipine Besylate 10 mg 10/25/20 13:00 10/28/20 09:42 Amlodipine 10 Mg Tab PO 10 mg QDAY PEPITO Administration Lipase/Protease/Amylase 1 each 10/10/20 22:18 Lipase 10,500/Protease 25,000/Amylase 43,750 (Units) Dr Santana FEEDTUBE PRN PRN For Clogged Feeding Tube Clonidine HCl 0.3 mg 10/14/20 15:00 10/21/20 14:05 Clonidine Tts 0.3 Mg/24 Hr Patch TD 0.3 mg Fr PEPITO Administration Docusate Sodium 100 mg 10/16/20 22:00 10/28/20 09:41 Docusate Sodium 100 Mg/10 Ml Oral Liqd PO 100 mg BID PEPITO Administration Fentanyl 50 mcg 10/16/20 14:10 10/23/20 10:53 Fentanyl 100 Mcg/2 Ml Inj IV 50 mcg Q10MIN PRN Administration ANALGESIA Glycopyrrolate 2 mg 10/19/20 14:00 10/28/20 08:01 Glycopyrrolate 1 Mg Tab PO 2 mg Q6H PEPITO Administration Heparin Sodium (Porcine) 5,000 unit 10/11/20 22:00 10/28/20 10:01 Heparin 5,000 Unit/1 Ml Vial SUB-Q 5,000 unit Q12HR PEPITO Administration Hydralazine HCl 5 mg 10/15/20 20:25 10/27/20 18:44 Hydralazine 20 Mg/1 Ml Inj IV 5 mg Q6H PRN Administration Hypertension Hydralazine HCl 100 mg 10/24/20 09:30 10/28/20 06:02 Hydralazine 25 Mg Tab PO 100 mg Q8HR PEPITO Administration Hydrophilic Ointment 1 applic 10/10/20 10:34 Lip Therapy Vaseline TP Q2HR PRN Dry Lips Levetiracetam 500 mg/ Dextrose 105 mls @ 400 mls/hr 10/13/20 18:00 10/28/20 06:04 IV 400 mls/hr Q12H PEPITO Administration Fentanyl Citrate 2,000 mcg in 100 mls @ 6.175 mls/hr 10/16/20 15:00 10/28/20 00:32 Fentanyl Drip Premix IV 1 mcg/kg/hr TITR PEPITO 6.175 mls/hr Administration Protocol 1 MCG/KG/HR Linezolid 600 mg in 300 mls @ 300 mls/hr 10/20/20 12:00 10/28/20 09:42 Zyvox 600mg/300ml IV 10/29/20 22:59 300 mls/hr Q12HR PEPITO Administration Protocol Lansoprazole 30 mg 10/24/20 10:00 10/28/20 09:42 Lansoprazole 30 Mg Solutab FEEDTUBE 30 mg BID PEPITO Administration Metoclopramide HCl 10 mg 10/10/20 21:51 Metoclopramide 10 Mg/2 Ml Inj IV Q6H PRN Nausea And Vomiting Metoprolol Tartrate 100 mg 10/21/20 14:00 10/28/20 08:02 Metoprolol Tartrate 50 Mg Tab PO 100 mg TID PEPITO Administration Multi-Ingred Cream/Lotion/Oil/Oint 1 applic 10/10/20 10:34 Mineral Oil/Petrolatum, White Ophth Oint 3.5 Gm OU Q4HR PRN Dry Eye(s) Ondansetron HCl 4 mg 10/10/20 21:51 Ondansetron 4 Mg/2 Ml Inj IV Q3H PRN Nausea And Vomiting Polyethylene Glycol 17 gm 10/17/20 10:00 10/28/20 09:41 Polyethylene Glycol 3350 17 Gm Powder PO 17 gm QDAY PEPITO Administration Scopolamine 1 each 10/17/20 10:00 10/26/20 10:03 Scopolamine Transdermal Patch 72 Hr TD 1 each Q3D PEPITO Administration Simple Syrup 15 ml 10/10/20 22:18 Simple Syrup 15 Ml FEEDTUBE PRN PRN Hypoglycemia Simple Syrup 30 ml 10/10/20 22:18 Simple Syrup 15 Ml FEEDTUBE PRN PRN Hypoglycemia Sodium Bicarbonate 325 mg 10/10/20 22:18 Sodium Bicarbonate 325 Mg Tab FEEDTUBE PRN PRN For Clogged Feeding Tube Sodium Chloride 10 ml 10/10/20 22:00 10/28/20 09:43 Sodium Chloride 0.9% 10 Ml Flush Syringe IV 10 ml BID PEPITO Administration Sodium Chloride 10 ml 10/10/20 21:51 10/21/20 09:56 Sodium Chloride 0.9% 10 Ml Flush Syringe IV 10 ml PRN PRN Administration LINE FLUSH
--- NOTE | 2020-10-28 13:51 | Progress Note ---
<JOIJOI MargauxSee - Last Filed: 10/28/20 15:21> Assessment and Plan Assessment and plan: This is a 55-year-old male with hypertension, asthma, obesity who was admitted on 10/10 after cardiac arrest x2, sepsis, right-sided pneumonia, NSTEMI type II, acute heart failure, acute hypoxic respiratory failure, acute kidney injury and anoxic brain injury. Sepsis s/p multiple Cardiac Arrests Right-sided pneumonia MRSA in tracheal aspirate NSTEMI type II Acute heart failure Hypernatremia Afib/Alutter Leukocytosis Hyponatremia Acute hypoxic respiratory failure Acute kidney injury Transaminitis HTN Obesity -Infectious disease, CCM, GI, nephrology, cardiology, surgery consulted, appreciate recommendations -Antibiotic therapy -10/18 recultured (blood/sputum/nasal discharge and urinalysis), tracheal aspirate with MRSA -Linezolid -Continue antihypertensive regimen (changed to p.o.), titrate as needed -s/p IV amiodarone for A. fib/a flutter now on p.o. beta-shital -Trend CBC, BMP, LFT -Continue mechanical ventilation, wean as tolerated, VAP bundle -Avoid nephrotoxic medications, strict intake and output, renal ultrasound shows no obstruction -10/10 echocardiogram shows left internal systolic function normal, moderate c oncentric left ventricle hypertrophy, mild to side diastolic dysfunction, LVEF 55 to 60% with no pericardial effusion -Bilateral Doppler ultrasound negative for DVT/SVT which shows bilateral popliteal cysts -MRI Brain shows restricted diffusion and increased T2 signal cerebral cortex which can be seen in the setting of anoxic brain injury and/ or status epilepticus. -Repeat EEG shows significant generalized slowing compatible with to moderate severe diffuse neuropathy recently compatible with anoxic/ischemic encephalopathy -D5W at 50ml/hr x 1 liter GI/DVT prophylaxis: SCDs to bilateral lower extremities while in bed, PPI, Heparin subq Dispo: ICU/ possible LTACH The high probability of a clinically significant, sudden or life threatening deterioration of the [multi] system(s) required my full and direct attention, intervention and personal management. The aggregate critical care time was [35] minutes. This time is in addition to time spent performing reported procedures but includes the following: [x] Data Review and interpretation [x] Patient assessment and monitoring of vital signs [x] Documentation [x] Medication orders and management History Interval history: This is a 55-year-old male with hypertension, asthma, obesity in the emergency by presented to the emergency department on 10/10 after receiving a Covid vaccine being found unresponsive in his car in the emergency room bay with no pulse and ACLS protocol was initiated from his car to emergency room #21 where it was continued. Patient was intubated after ROSC was achieved and a central line was placed and the patient was initiated on pressors. In the emergency room patient seems to have seizure-like activity and then collapsed and was unresponsive with no palpable pulse and ACLS was again initiated patient with achievement of ROSC. Patient again coded with ACLS protocol in the CT room. Upon arrival to the ICU patient again coded and ROSC was achieved and he was placed on epinephrine, Lasix, heparin and sodium bicarbonate drip and sedated with propofol. An NG tube was placed, A-line was placed. Patient was admitted to the hospitalist service with consult to CCM, nephrology, infectious disease and cardiology. 10/11: Patient COVID-19 PCR is pending and he remains on mechanical ventilation, examination on assist control 400/30/12/0.95. Patient is scheduled for an echocardiogram and we will obtain bilateral lower extremity Doppler ultrasound given elevated D-dimer. Patient was supposed to have a CTA chest when he coded yesterday. We will begin trickle feeding. This morning patient was on a heparin drip and was noted to have bloody drainage from his NG tube. Heparin drip was discontinued. 10/12: Patient remains on propofol and Lasix drip at the time my examination and he is on assist control 400/25/12/0.60. Patient is hypokalemic this morning which was repleted. Nephrology discontinued Lasix drip and Diamox. Patient is hypertensive and has been started on hydralazine and beta-shital IV. He has been titrated off his vasopressors since yesterday. Vancomycin discontinued. Patient is currently on cefepime and azithromycin. 10/13: Sedation vacation attempted today and patient was not responsive to verbal or painful stimuli, does not track or focus or follow commands. This morning the patient has some respiratory alkalosis on ABG, hypernatremia and metabolic alkalosis on BMP. His kidney functions has improved slightly. Patient still has leukocytosis and infectious disease was like to continue antibiotic therapy. GI evaluated the patient yesterday and started the patient on PPI does not plan to scope at this time. At the time my examination patient assist-control 400/20/12/0.40 and sedated on propofol at 20. /: GI has recommended a CT abdomen since there is increased output from OG tube and an MRI brain without contrast has been ordered per neurology recommendations. EEG is pending and the patient has been started on Keppra per neurology.. Nutrition has been consulted for initiation of parenteral nutritio n. Patient remains sedated with propofol and his hypernatremia, leukocytosis, acute kidney injury and metabolic alkalosis is improving. Patient has hypokalemia today which was repleted. At the time of my examination patient was on assist control 400/14/10/0.40 and CCM has dropped his rate to 12 and PEEP to 8. We have labs ordered for a.m. He was given a clonidine patch given persistent hypertension and he remains on D5 water per nephrology. 10/15: This morning patient was started to have a low-grade fever and he will continue antibiotic therapy per infectious disease. He will remove Tuttle catheter today and place a condom cath. Patient's renal function is worsening with a BUN/creatinine of 57/2.4 today and he has hyperphosphatemia at 5.2. This morning the time my examination patient is sedated on fentanyl and has TPN infusing. He is on assist control 400/12/8/0.35. Per GI we will start trial of tube feedings initiation has been reconsulted for orders. 10/18: Patient was febrile overnight and infectious disease has recultured (blood/sputum/right nostril culture) and sent in urinalysis. Cefepime was extended due to high fever and was started on vancomycin. Tube feeding is at goal and we will discontinue his parenteral nutrition. Patient is unable to obtain his MRI due to increased hypoxia and nasal secretions. He will be started on CPAP trials today. This time I examination patient was sedated on fentanyl and had PPN running at 42. His renal function tests have worsened and now has hyperchloremia. Hypernatremia has resolved. 10/19: Patient's T-max was 100.2 and he was pancultured yesterday, remains on antibiotic therapy and still has copious drainage from his nostrils. Patient still has leukocytosis however his/creatinine improved slightly to 3.1 from 3.3. Patient's urinalysis from yesterday shows pyuria. Patient's tracheal aspirate from yesterday grew Staph aureus. Patient is on cefepime and vancomycin. 10/20: This morning at the time my examination patient was CPAP trial of 04/19 and his T-max was 100.9. Patient sedated on fentanyl at 2 just received IV push fentanyl for tachycardia. Today his creatinine is 2.8 from 3.1 yesterday. Infectious disease has stopped cefepime and vancomycin and started linezolid and MRSA PCR is pending. Today removed his NG tube and replaced it with OG tube. We will keep the patient normal saline at 75 mL's per hour for 3 L. Patient developed A. fib/a flutter overnight and cardiology has increased his Lopressor and IV amiodarone. We requested neurology evaluation today. 10/21: Cardiology we will increase Lopressor to 3 times daily and discontinue his amiodarone drip. Infectious disease would like a sinus CT when feasible however patient did have a moment of desatting earlier this week when we attempted MRI brain. And again yesterday when we attempted a "trial run" with positioning at bedside Patient is on linezolid for 10 days per ID. 10/22/20; patient was seen and evaluated this morning, patient had low-grade fever overnight. Patient is on Lopressor per cardiology recommendation. Patient did not follow commands, no improvement in mental status. Evaluated by neurology yesterday and neurology once MRI or CAT scan but cannot be done because patient desats when he lies flat. Patient is on linezolid per ID recommendation. Continue NG tube feeding. Continue with Keppra. Patient is on assist control with PEEP of 6. Management plan was discussed with his yesterday. 10/23/2020; patient is on Zyvox for positive MRSA from tracheal aspirate and nasal secretion culture. Patient's mentation did not improve and does not follow commands. He was reevaluated by neurology and recommend MRI once patient is able to tolerate. MRI could not be done, CT scan could not be done because the patient could not lie flat. Clinically patient looks like she has anoxic encephalopathy. Patient is on NG tube feeding and on mechanical ventilation. Patient is on Keppra. Management plan was discussed with his . 10/24: This morning the patient is on AC TV 400,R 16, Peep 6 and FiO2 of 30% and sedated on 1mcg of Fentayl. He is hypernatremic and his kidney function tests have slightly improved. RN will attempt to obtain MRI Brain today since the patient was able to tolerate a "trial run" of being flat. [facility] plans to resume CPAP trials once MRI obtained. 10/25: This morning the time of examination patient was on assist control tidal volume 400, rate 16, PEEP 6, FiO2 30% and he is currently on CPAP. His MRI brain finding is consistent with status epilepticus or anoxic brain injury. Patient is EEG pending. No acute overnight events reported. 10/26: Patient has been on a CPAP trial 14/6 which she has been tolerating. Surgery was consulted for trach/PEG. Patient's hypernatremia and hyperchloremia slightly better as well as his kidney functions. He has received cardiac clearance for his trach and PEG. No acute events reported overnight. 10/27: At the time my examination patient was on CPAP trial 15/6 and 30% FiO2. Patient's electrolyte abnormalities were improving and sources kidney function. His T-max overnight was 99.3 and he remains on linezolid. No acute events rep orted overnight. 10/28: Yesterday patient had a trach and PEG placed bedside during. Patient remains n.p.o. as he has not been cleared by surgery to resume p.o. intake. Today he has slight leukocytosis which is likely reactive, hyponatremia, metabolic alkalosis however his kidney function continues to improve. No acute events overnight. Hospitalist Physical - Constitutional Vitals: Temp Pulse Resp BP Pulse Ox 98.4 F 72 14 160/75 98 10/28/20 11:00 10/28/20 13:12 10/28/20 12:30 10/28/20 13:12 10/28/20 12:30 General appearance: Present: no acute distress, well-nourished, other (Resting comfortably on mechanical ventilation, opens eye spontanously) - EENT Eyes: Present: PERRL, conjunctival injection ENT: clear oral mucosa - Neck Neck: Present: normal ROM - Respiratory Respiratory effort: normal Respiratory: bilateral: diminished - Cardiovascular Rhythm: regular Heart Sounds: Present: S1 & S2. Absent: systolic murmur, diastolic murmur - Extremities Extremities: no ischemia, pulses intact, pulses symmetrical, normal temperature, normal color Peripheral Pulses: within normal limits - Abdominal General gastrointestinal: soft, non-tender, non-distended, normal bowel sounds - Integumentary Integumentary: Present: warm, dry - Psychiatric Psychiatric: other (unresponsive to painful stimuli) - Neurologic Neurologic: other (unresponsive to painful stimuli) HEART Score - HEART Score EKG: Non-specific Age: 45-65 Troponin: Troponin T 0.125 ng/mL (0.00-0.029) H* D 10/12/20 04:00 Troponin: 1-3x normal limit - Critical Actions Critical Actions: 4-6 pts:12-16.6% risk of adverse cardiac event. Should be admitted Results - Labs CBC & Chem 7: 10/28/20 09:00 10/28/20 07:00 Labs: Laboratory Last Values WBC 12.5 K/mm3 (4.5-11.0) H 10/28/20 09:00 RBC 3.58 M/mm3 (3.65-5.03) L 10/28/20 09:00 Hgb 10.5 gm/dl (11.8-15.2) L 10/28/20 09:00 Hct 32.1 % (35.5-45.6) L 10/28/20 09:00 MCV 90 fl (84-94) 10/28/20 09:00 MCH 29 pg (28-32) 10/28/20 09:00 MCHC 33 % (32-34) 10/28/20 09:00 RDW 14.9 % (13.2-15.2) 10/28/20 09:00 Plt Count 279 K/mm3 (140-440) 10/28/20 09:00 Lymph % (Auto) 4.2 % (13.4-35.0) L 10/19/20 04:55 Clarke % (Auto) 11.9 % (0.0-7.3) H 10/19/20 04:55 Eos % (Auto) 1.6 % (0.0-4.3) 10/19/20 04:55 Baso % (Auto) 0.3 % (0.0-1.8) 10/19/20 04:55 Lymph # (Auto) 0.6 K/mm3 (1.2-5.4) L 10/19/20 04:55 Clarke # (Auto) 1.8 K/mm3 (0.0-0.8) H 10/19/20 04:55 Eos # (Auto) 0.2 K/mm3 (0.0-0.4) 10/19/20 04:55 Baso # (Auto) 0.1 K/mm3 (0.0-0.1) 10/19/20 04:55 Add Manual Diff Complete 10/10/20 18:18 Total Counted 100 10/10/20 18:18 Seg Neutrophils % 82.0 % (40.0-70.0) H 10/19/20 04:55 Seg Neuts % (Manual) 60.0 % (40.0-70.0) 10/10/20 18:18 Band Neutrophils % 27.0 % 10/10/20 18:18 Lymphocytes % (Manual) 4.0 % (13.4-35.0) L 10/10/20 18:18 Monocytes % (Manual) 9.0 % (0.0-7.3) H 10/10/20 18:18 Eosinophils % (Manual) 4.0 % (0.0-4.3) 10/10/20 10:48 Metamyelocytes % 1.0 % 10/10/20 10:48 Nucleated RBC % Not Reportable 10/10/20 18:18 Seg Neutrophils # 12.4 K/mm3 (1.8-7.7) H 10/19/20 04:55 Seg Neutrophils # Man 13.8 K/mm3 (1.8-7.7) H 10/10/20 18:18 Band Neutrophils # 6.2 K/mm3 10/10/20 18:18 Lymphocytes # (Manual) 0.9 K/mm3 (1.2-5.4) L 10/10/20 18:18 Abs React Lymphs (Man) 0.0 K/mm3 10/10/20 18:18 Monocytes # (Manual) 2.1 K/mm3 (0.0-0.8) H 10/10/20 18:18 Eosinophils # (Manual) 0.0 K/mm3 (0.0-0.4) 10/10/20 18:18 Basophils # (Manual) 0.0 K/mm3 (0.0-0.1) 10/10/20 18:18 Metamyelocytes # 0.0 K/mm3 10/10/20 18:18 Myelocytes # 0.0 K/mm3 10/10/20 18:18 Promyelocytes # 0.0 K/mm3 10/10/20 18:18 Blast Cells # 0.0 K/mm3 10/10/20 18:18 WBC Morphology Not Reportable 10/10/20 18:18 Hypersegmented Neuts Not Reportable 10/10/20 18:18 Hyposegmented Neuts Not Reportable 10/10/20 18:18 Hypogranular Neuts Not Reportable 10/10/20 18:18 Smudge Cells Not Reportable 10/10/20 18:18 Toxic Granulation Not Reportable 10/10/20 18:18 Toxic Vacuolation Not Reportable 10/10/20 18:18 Dohle Bodies Not Reportable 10/10/20 18:18 Pelger-Huet Anomaly Not Reportable 10/10/20 18:18 Dionicio Rods Not Reportable 10/10/20 18:18 Platelet Estimate Consistent w auto 10/10/20 18:18 Clumped Platelets Not Reportable 10/10/20 18:18 Plt Clumps, EDTA Not Reportable 10/10/20 18:18 Large Platelets Rare 10/10/20 18:18 Giant Platelets Rare 10/10/20 18:18 Platelet Satelliting Not Reportable 10/10/20 18:18 Plt Morphology Comment Not Reportable 10/10/20 18:18 RBC Morphology Not Reportable 10/10/20 18:18 Dimorphic RBCs Not Reportable 10/10/20 18:18 Polychromasia Not Reportable 10/10/20 18:18 Hypochromasia Not Reportable 10/10/20 18:18 Poikilocytosis Not Reportable 10/10/20 18:18 Anisocytosis Not Reportable 10/10/20 18:18 Microcytosis Not Reportable 10/10/20 18:18 Macrocytosis Not Reportable 10/10/20 18:18 Spherocytes Not Reportable 10/10/20 18:18 Pappenheimer Bodies Not Reportable 10/10/20 18:18 Sickle Cells Not Reportable 10/10/20 18:18 Target Cells Not Reportable 10/10/20 18:18 Tear Drop Cells Not Reportable 10/10/20 18:18 Ovalocytes Not Reportable 10/10/20 18:18 Helmet Cells Not Reportable 10/10/20 18:18 Medley-Stockett Bodies Not Reportable 10/10/20 18:18 Ragan Rings Not Reportable 10/10/20 18:18 [place] Cells Not Reportable 10/10/20 18:18 Bite Cells Not Reportable 10/10/20 18:18 Crenated Cell Not Reportable 10/10/20 18:18 Elliptocytes Not Reportable 10/10/20 18:18 Acanthocytes (Spur) Not Reportable 10/10/20 18:18 Rouleaux Not Reportable 10/10/20 18:18 Hemoglobin C Crystals Not Reportable 10/10/20 18:18 Schistocytes Not Reportable 10/10/20 18:18 Malaria parasites Not Reportable 10/10/20 18:18 Mauricio Bodies Not Reportable 10/10/20 18:18 Hem Pathologist Commnt No 10/10/20 18:18 PT 13.5 Sec. (12.2-14.9) 10/28/20 07:00 INR 1.05 (0.87-1.13) 10/28/20 07:00 APTT 26.9 Sec. (24.2-36.6) 10/10/20 18:18 D-Dimer 679.5 ng/mlDDU (0-234) H 10/10/20 10:48 Heparin Anti-Xa Level 0.22 U.I./ml (0.3-0.7) L 10/11/20 08:35 ABG pH 7.424 (7.320-7.450) 10/25/20 18:10 POC ABG pCO2 52.3 mmHg (32.0-48.0) H 10/25/20 18:10 ABG pCO2 55.5 mm Hg 10/16/20 05:10 POC ABG pO2 97.1 mmHg (83-108) 10/25/20 18:10 ABG pO2 104.5 mm Hg (80.0-90.0) H 10/16/20 05:10 POC ABG HCO3 33.5 10/25/20 18:10 ABG HCO3 35.1 mmol/L (20.0-26.0) H 10/16/20 05:10 ABG O2 Saturation 97.4 (0-100) 10/25/20 18:10 ABG O2 Content 10.8 (0.0-44) 10/16/20 05:10 POC ABG Base Excess 7.8 10/25/20 18:10 ABG Base Excess 9.5 mmol/L (-2.0-3.0) H 10/16/20 05:10 ABG Hemoglobin 11.2 (12.0-17.5) L 10/25/20 18:10 ABG Oxyhemoglobin 96.2 (94-98) 10/25/20 18:10 ABG Carboxyhemoglobin 1.9 % (0.0-5.0) 10/16/20 05:10 ABG Methemoglobin 0.3 (0.0-1.5) 10/25/20 18:10 ABG Sodium 144.9 mmol/L (136.0-145.0) 10/25/20 18:10 ABG Potassium 3.8 mmol/L (3.40-4.50) 10/25/20 18:10 ABG Chloride 108.0 mmol/L (98-107) H 10/25/20 18:10 ABG Glucose 167 mg/dL (65-95) H 10/25/20 18:10 VBG pH 6.870 (7.320-7.420) L* 10/10/20 10:48 Oxyhemoglobin 95.3 % (95.0-99.0) 10/16/20 05:10 Carboxyhemoglobin 0.9 (0.5-1.5) 10/25/20 18:10 FiO2 35 % 10/16/20 05:10 FiO2 % 30 10/25/20 18:10 Sodium 147 mmol/L (137-145) H 10/28/20 07:00 Potassium 4.2 mmol/L (3.6-5.0) 10/28/20 07:00 Chloride 104.6 mmol/L (98-107) 10/28/20 07:00 Carbon Dioxide 35 mmol/L (22-30) H 10/28/20 07:00 Anion Gap 12 mmol/L 10/28/20 07:00 BUN 39 mg/dL (9-20) H 10/28/20 07:00 Creatinine 1.2 mg/dL (0.8-1.3) 10/28/20 07:00 Estimated GFR > 60 ml/min 10/28/20 07:00 BUN/Creatinine Ratio 33 % 10/28/20 07:00 Glucose 133 mg/dL (75-100) H 10/28/20 07:00 POC Glucose 129 mg/dL (70-105) H 10/28/20 11:47 Hemoglobin A1c 6.0 % (4-6) 10/11/20 02:00 Lactic Acid 1.10 mmol/L (0.7-2.0) 10/13/20 04:52 Calcium 9.2 mg/dL (8.4-10.2) 10/28/20 07:00 Phosphorus 5.20 mg/dL (2.5-4.5) H D 10/17/20 03:32 Magnesium 2.30 mg/dL (1.7-2.3) 10/17/20 03:32 Ferritin 81.4 ng/mL (30.0-300.0) 10/10/20 10:48 Total Bilirubin 1.70 mg/dL (0.1-1.2) H 10/18/20 03:27 AST 37 units/L (5-40) 10/18/20 03:27 ALT 32 units/L (7-56) 10/18/20 03:27 Alkaline Phosphatase 97 units/L (35-129) 10/18/20 03:27 Ammonia 214.0 umol/L (25-60) H 10/10/20 10:46 Lactate Dehydrogenase 386 units/L (91-180) H 10/10/20 10:48 Total Creatine Kinase 1192 units/L (55-170) H 10/10/20 18:18 CK-MB (CK-2) 21.7 ng/mL (0.0-4.0) H 10/10/20 18:18 CK-MB (CK-2) Rel Index 1.8 (0-4) 10/10/20 18:18 Troponin T 0.125 ng/mL (0.00-0.029) H* D 10/12/20 04:00 C-Reactive Protein 0.90 mg/dL (0.00-1.30) 10/10/20 10:48 NT-Pro-B Natriuret Pep 1187 pg/mL (0-900) H 10/10/20 10:46 Total Protein 6.3 g/dL (6.3-8.2) 10/18/20 03:27 Albumin 3.1 g/dL (3.9-5) L 10/18/20 03:27 Albumin/Globulin Ratio 1.0 % 10/18/20 03:27 Triglycerides 278 mg/dL (2-149) H 10/13/20 04:52 Cholesterol 138 mg/dL (50-199) 10/10/20 18:18 LDL Cholesterol Direct 76 mg/dL (50-130) 10/10/20 18:18 HDL Cholesterol 49 mg/dL (40-59) 10/10/20 18:18 Cholesterol/HDL Ratio 2.81 % 10/10/20 18:18 Procalcitonin 4.98 ng/mL (<0.15) 10/15/20 04:12 TSH 6.260 mlU/mL (0.270-4.200) H 10/10/20 10:46 Arterial Blood Glucose 167 mg/dL (65-95) H 10/25/20 18:10 Arterial Blood Ionized Calcium 5.1 mg/dL (4.6-5.3) 10/25/20 18:10 Urine Color Angelica (Yellow) 10/18/20 Unknown Urine Turbidity Cloudy (Clear) 10/18/20 Unknown Urine pH 5.0 (5.0-7.0) 10/18/20 Unknown Ur Specific [place] 1.017 (1.003-1.030) 10/18/20 Unknown Urine Protein 100 mg/dl mg/dL (Negative) 10/18/20 Unknown Urine Glucose (UA) Neg mg/dL (Negative) 10/18/20 Unknown Urine Ketones Neg mg/dL (Negative) 10/18/20 Unknown Urine Blood Lg (Negative) 10/18/20 Unknown Urine Nitrite Neg (Negative) 10/18/20 Unknown Urine Bilirubin Neg (Negative) 10/18/20 Unknown Urine Urobilinogen 4.0 mg/dL (<2.0) 10/18/20 Unknown Ur Leukocyte Esterase Neg (Negative) 10/18/20 Unknown Urine WBC (Auto) 115.0 /HPF (0.0-6.0) H 10/18/20 Unknown Urine RBC (Auto) 98.0 /HPF (0.0-6.0) 10/18/20 Unknown U Epithel Cells (Auto) 2.0 /HPF (0-13.0) 10/18/20 Unknown Urine WBC Clumps 3+ /HPF 10/18/20 Unknown Urine Mucus Few /HPF 10/11/20 13:30 Urine Eosinophils None seen (None Seen) 10/11/20 13:30 Urine Creatinine 93.7 mg/dL (0.1-20.0) H 10/19/20 13:14 Urine Sodium 25 mmol/L 10/19/20 13:14 Urine Urea Nitrogen 845 10/19/20 13:14 Nasal Screen MRSA (PCR) Positive (Negative) 10/20/20 13:30 Random Vancomycin 5.8 ug/mL (0-40.0) 10/21/20 06:30 Urine Opiates Screen Negative 10/10/20 10:50 Urine Methadone Screen Negative 10/10/20 10:50 Ur Barbiturates Screen Negative 10/10/20 10:50 Ur Phencyclidine Scrn Negative 10/10/20 10:50 Ur Amphetamines Screen Negative 10/10/20 10:50 U Benzodiazepines Scrn Negative 10/10/20 10:50 Urine Cocaine Screen Negative 10/10/20 10:50 U Marijuana (THC) Screen Positive 10/10/20 10:50 Drugs of Abuse Note Disclamer 10/10/20 10:50 Plasma/Serum Alcohol < 0.01 % (0-0.07) 10/10/20 10:48 Coronavirus (PCR) Negative (Negative) 10/11/20 Unknown Blood Type AB POSITIVE 10/10/20 10:48 Antibody Screen Negative 10/10/20 10:48 Tuttle/IV: Voiding Method Condom Catheter Active Medications - Current Medications Current Medications: Generic Name Dose Route Start Last Admin Trade Name Freq PRN Reason Stop Dose Admin Acetaminophen 650 mg 10/10/20 21:51 10/20/20 09:11 Acetaminophen 325 Mg Tab PO 650 mg Q4H PRN Administration Pain MILD(1-3)/Fever >100.5/SALVADOR Acetaminophen 650 mg 10/11/20 11:24 10/17/20 17:16 Acetaminophen 650 Mg Rect Supp CO 650 mg Q6H PRN Administration Fever >101 Albuterol 2.5 mg 10/11/20 13:12 Albuterol 2.5 Mg/3 Ml Nebu IH Q6HRT PRN Shortness Of Breath Amlodipine Besylate 10 mg 10/25/20 13:00 10/28/20 09:42 Amlodipine 10 Mg Tab PO 10 mg QDAY PEPITO Administration Lipase/Protease/Amylase 1 each 10/10/20 22:18 Lipase 10,500/Protease 25,000/Amylase 43,750 (Units) Dr Cap FEEDTUBE PRN PRN For Clogged Feeding Tube Clonidine HCl 0.3 mg 10/14/20 15:00 10/21/20 14:05 Clonidine Tts 0.3 Mg/24 Hr Patch TD 0.3 mg Fr PEPITO Administration Docusate Sodium 100 mg 10/16/20 22:00 10/28/20 09:41 Docusate Sodium 100 Mg/10 Ml Oral Liqd PO 100 mg BID PEPITO Administration Fentanyl 50 mcg 10/16/20 14:10 10/23/20 10:53 Fentanyl 100 Mcg/2 Ml Inj IV 50 mcg Q10MIN PRN Administration ANALGESIA Glycopyrrolate 2 mg 10/19/20 14:00 10/28/20 13:14 Glycopyrrolate 1 Mg Tab PO 2 mg Q6H PEPITO Administration Heparin Sodium (Porcine) 5,000 unit 10/11/20 22:00 10/28/20 10:01 Heparin 5,000 Unit/1 Ml Vial SUB-Q 5,000 unit Q12HR PEPITO Administration Hydralazine HCl 5 mg 10/15/20 20:25 10/27/20 18:44 Hydralazine 20 Mg/1 Ml Inj IV 5 mg Q6H PRN Administration Hypertension Hydralazine HCl 100 mg 10/24/20 09:30 10/28/20 13:11 Hydralazine 25 Mg Tab PO 100 mg Q8HR PEPITO Administration Hydrophilic Ointment 1 applic 10/10/20 10:34 Lip Therapy Vaseline TP Q2HR PRN Dry Lips Levetiracetam 500 mg/ Dextrose 105 mls @ 400 mls/hr 10/13/20 18:00 10/28/20 06:04 IV 400 mls/hr Q12H PEPITO Administration Fentanyl Citrate 2,000 mcg in 100 mls @ 6.175 mls/hr 10/16/20 15:00 10/28/20 00:32 Fentanyl Drip Premix IV 1 mcg/kg/hr TITR PEPITO 6.175 mls/hr Administration Protocol 1 MCG/KG/HR Linezolid 600 mg in 300 mls @ 300 mls/hr 10/20/20 12:00 10/28/20 09:42 Zyvox 600mg/300ml IV 10/29/20 22:59 300 mls/hr Q12HR PEPITO Administration Protocol Lansoprazole 30 mg 10/24/20 10:00 10/28/20 09:42 Lansoprazole 30 Mg Solutab FEEDTUBE 30 mg BID PEPITO Administration Metoclopramide HCl 10 mg 10/10/20 21:51 Metoclopramide 10 Mg/2 Ml Inj IV Q6H PRN Nausea And Vomiting Metoprolol Tartrate 100 mg 10/21/20 14:00 10/28/20 13:12 Metoprolol Tartrate 50 Mg Tab PO 100 mg TID PEPITO Administration Multi-Ingred Cream/Lotion/Oil/Oint 1 applic 10/10/20 10:34 Mineral Oil/Petrolatum, White Ophth Oint 3.5 Gm OU Q4HR PRN Dry Eye(s) Ondansetron HCl 4 mg 10/10/20 21:51 Ondansetron 4 Mg/2 Ml Inj IV Q3H PRN Nausea And Vomiting Polyethylene Glycol 17 gm 10/17/20 10:00 10/28/20 09:41 Polyethylene Glycol 3350 17 Gm Powder PO 17 gm QDAY PEPITO Administration Scopolamine 1 each 10/17/20 10:00 10/26/20 10:03 Scopolamine Transdermal Patch 72 Hr TD 1 each Q3D PEPITO Administration Simple Syrup 15 ml 10/10/20 22:18 Simple Syrup 15 Ml FEEDTUBE PRN PRN Hypoglycemia Simple Syrup 30 ml 10/10/20 22:18 Simple Syrup 15 Ml FEEDTUBE PRN PRN Hypoglycemia Sodium Bicarbonate 325 mg 10/10/20 22:18 Sodium Bicarbonate 325 Mg Tab FEEDTUBE PRN PRN For Clogged Feeding Tube Sodium Chloride 10 ml 10/10/20 22:00 10/28/20 09:43 Sodium Chloride 0.9% 10 Ml Flush Syringe IV 10 ml BID PEPITO Administration Sodium Chloride 10 ml 10/10/20 21:51 10/21/20 09:56 Sodium Chloride 0.9% 10 Ml Flush Syringe IV 10 ml PRN PRN Administration LINE FLUSH Nutrition/Malnutrition Assess - Dietary Evaluation Nutrition/Malnutrition Findings: Nutrition Notes Start: 10/11/20 08:38 Freq: Status: Active Protocol: Document 10/27/20 11:40 CW (Rec: 10/27/20 12:13 CW [id number]) Nutrition Notes Initial or Follow up Reassessment Current Diagnosis Acute Kidney Injury,Sepsis, Hypertension,Heart Failure, Respiratory Failure Other Pertinent Diagnosis GIB, pneu, MRSA UT, pulmonary edema Current Diet NPO Labs/Tests Na 146 BUN 45 Pertinent Medications Miralax Colace Height 6 ft Weight 126 kg [place] Body Weight (kg) 80.90 BMI 37.6 Weight change and time frame weight stable Weight Status Morbidly Obese Subjective/Other Information F/U for TF tolerance and renal related labs. TF held at midnight today for PEG and Trach placement per RN. Renal functioing improving recommend change TF to better meet protein needs. Percent of energy/protein needs met: 100%/54% (prior to TF being on hold) Burn Absent Trauma Absent Difficulty In Swallowing Current % PO Negligible Minimum of two criteria No Fluid Accumulation Mild (non-severe) #1 Nutrition Diagnosis Inadequate oral intake Diagnosis Progress(for reassessment Continues documentation) Is patient on ventilator? Yes Is Patient Ambulatory and/or Out of Bed No REE-([facility]-confined to bed) 2575.176 Kcal/Kg value to use for calculation 15 Approximate Energy Requirements Using 1890 kcal/Kg Calculation Used for Recommendations Kcal/kg Additional Notes protein needs: >162g (>2 kgIBW ) fluid needs: 1 ml/kcal or per MD Nutrition Intervention Change Diet Order: Restart TF, recommend change Nutrition Support: Promote at 80 ml/hr with a free water flush of 200 ml q4hr for hypernatremia. Once hypernatremia resolved, resume flush of 50 ml q4h. Kcal 1,920 Protein (gm) 120 Fluid (mL) 1,611 Goal #1 Tolerate TF Goal #2 Meet protein and kcal needs via TF as best as possible Anticipated Discharge Needs: TF Follow-Up By: 10/31/20 Additional Comments F/U for TF restart, renal related labs, trach and peg placement <DAVID TORRES R - Last Filed: 10/28/20 19:41> Assessment and Plan Assessment and plan: I saw and evaluated the patient. I agree with the findings and the plan of care as documented in the Nurse Practitioner's~note. Hospitalist Physical - Constitutional Vitals: Temp Pulse Resp BP Pulse Ox 99.2 F 64 10 L 145/78 99 10/28/20 16:00 10/28/20 19:12 10/28/20 18:00 10/28/20 19:12 10/28/20 19:12 HEART Score - HEART Score Troponin: Troponin T 0.125 ng/mL (0.00-0.029) H* D 10/12/20 04:00 Results - Labs CBC & Chem 7: 10/28/20 09:00 10/28/20 07:00 Labs: Laboratory Last Values WBC 12.5 K/mm3 (4.5-11.0) H 10/28/20 09:00 RBC 3.58 M/mm3 (3.65-5.03) L 10/28/20 09:00 Hgb 10.5 gm/dl (11.8-15.2) L 10/28/20 09:00 Hct 32.1 % (35.5-45.6) L 10/28/20 09:00 MCV 90 fl (84-94) 10/28/20 09:00 MCH 29 pg (28-32) 10/28/20 09:00 MCHC 33 % (32-34) 10/28/20 09:00 RDW 14.9 % (13.2-15.2) 10/28/20 09:00 Plt Count 279 K/mm3 (140-440) 10/28/20 09:00 Lymph % (Auto) 4.2 % (13.4-35.0) L 10/19/20 04:55 Clarke % (Auto) 11.9 % (0.0-7.3) H 10/19/20 04:55 Eos % (Auto) 1.6 % (0.0-4.3) 10/19/20 04:55 Baso % (Auto) 0.3 % (0.0-1.8) 10/19/20 04:55 Lymph # (Auto) 0.6 K/mm3 (1.2-5.4) L 10/19/20 04:55 Clarke # (Auto) 1.8 K/mm3 (0.0-0.8) H 10/19/20 04:55 Eos # (Auto) 0.2 K/mm3 (0.0-0.4) 10/19/20 04:55 Baso # (Auto) 0.1 K/mm3 (0.0-0.1) 10/19/20 04:55 Add Manual Diff Complete 10/10/20 18:18 Total Counted 100 10/10/20 18:18 Seg Neutrophils % 82.0 % (40.0-70.0) H 10/19/20 04:55 Seg Neuts % (Manual) 60.0 % (40.0-70.0) 10/10/20 18:18 Band Neutrophils % 27.0 % 10/10/20 18:18 Lymphocytes % (Manual) 4.0 % (13.4-35.0) L 10/10/20 18:18 Monocytes % (Manual) 9.0 % (0.0-7.3) H 10/10/20 18:18 Eosinophils % (Manual) 4.0 % (0.0-4.3) 10/10/20 10:48 Metamyelocytes % 1.0 % 10/10/20 10:48 Nucleated RBC % Not Reportable 10/10/20 18:18 Seg Neutrophils # 12.4 K/mm3 (1.8-7.7) H 10/19/20 04:55 Seg Neutrophils # Man 13.8 K/mm3 (1.8-7.7) H 10/10/20 18:18 Band Neutrophils # 6.2 K/mm3 10/10/20 18:18 Lymphocytes # (Manual) 0.9 K/mm3 (1.2-5.4) L 10/10/20 18:18 Abs React Lymphs (Man) 0.0 K/mm3 10/10/20 18:18 Monocytes # (Manual) 2.1 K/mm3 (0.0-0.8) H 10/10/20 18:18 Eosinophils # (Manual) 0.0 K/mm3 (0.0-0.4) 10/10/20 18:18 Basophils # (Manual) 0.0 K/mm3 (0.0-0.1) 10/10/20 18:18 Metamyelocytes # 0.0 K/mm3 10/10/20 18:18 Myelocytes # 0.0 K/mm3 10/10/20 18:18 Promyelocytes # 0.0 K/mm3 10/10/20 18:18 Blast Cells # 0.0 K/mm3 10/10/20 18:18 WBC Morphology Not Reportable 10/10/20 18:18 Hypersegmented Neuts Not Reportable 10/10/20 18:18 Hyposegmented Neuts Not Reportable 10/10/20 18:18 Hypogranular Neuts Not Reportable 10/10/20 18:18 Smudge Cells Not Reportable 10/10/20 18:18 Toxic Granulation Not Reportable 10/10/20 18:18 Toxic Vacuolation Not Reportable 10/10/20 18:18 Dohle Bodies Not Reportable 10/10/20 18:18 Pelger-Huet Anomaly Not Reportable 10/10/20 18:18 Dionicio Rods Not Reportable 10/10/20 18:18 Platelet Estimate Consistent w auto 10/10/20 18:18 Clumped Platelets Not Reportable 10/10/20 18:18 Plt Clumps, EDTA Not Reportable 10/10/20 18:18 Large Platelets Rare 10/10/20 18:18 Giant Platelets Rare 10/10/20 18:18 Platelet Satelliting Not Reportable 10/10/20 18:18 Plt Morphology Comment Not Reportable 10/10/20 18:18 RBC Morphology Not Reportable 10/10/20 18:18 Dimorphic RBCs Not Reportable 10/10/20 18:18 Polychromasia Not Reportable 10/10/20 18:18 Hypochromasia Not Reportable 10/10/20 18:18 Poikilocytosis Not Reportable 10/10/20 18:18 Anisocytosis Not Reportable 10/10/20 18:18 Microcytosis Not Reportable 10/10/20 18:18 Macrocytosis Not Reportable 10/10/20 18:18 Spherocytes Not Reportable 10/10/20 18:18 Pappenheimer Bodies Not Reportable 10/10/20 18:18 Sickle Cells Not Reportable 10/10/20 18:18 Target Cells Not Reportable 10/10/20 18:18 Tear Drop Cells Not Reportable 10/10/20 18:18 Ovalocytes Not Reportable 10/10/20 18:18 Helmet Cells Not Reportable 10/10/20 18:18 Medley-Stockett Bodies Not Reportable 10/10/20 18:18 Ragan Rings Not Reportable 10/10/20 18:18 Adelfo Cells Not Reportable 10/10/20 18:18 Bite Cells Not Reportable 10/10/20 18:18 Crenated Cell Not Reportable 10/10/20 18:18 Elliptocytes Not Reportable 10/10/20 18:18 Acanthocytes (Spur) Not Reportable 10/10/20 18:18 Rouleaux Not Reportable 10/10/20 18:18 Hemoglobin C Crystals Not Reportable 10/10/20 18:18 Schistocytes Not Reportable 10/10/20 18:18 Malaria parasites Not Reportable 10/10/20 18:18 Mauricio Bodies Not Reportable 10/10/20 18:18 Hem Pathologist Commnt No 10/10/20 18:18 PT 13.5 Sec. (12.2-14.9) 10/28/20 07:00 INR 1.05 (0.87-1.13) 10/28/20 07:00 APTT 26.9 Sec. (24.2-36.6) 10/10/20 18:18 D-Dimer 679.5 ng/mlDDU (0-234) H 10/10/20 10:48 Heparin Anti-Xa Level 0.22 U.I./ml (0.3-0.7) L 10/11/20 08:35 ABG pH 7.424 (7.320-7.450) 10/25/20 18:10 POC ABG pCO2 52.3 mmHg (32.0-48.0) H 10/25/20 18:10 ABG pCO2 55.5 mm Hg 10/16/20 05:10 POC ABG pO2 97.1 mmHg (83-108) 10/25/20 18:10 ABG pO2 104.5 mm Hg (80.0-90.0) H 10/16/20 05:10 POC ABG HCO3 33.5 10/25/20 18:10 ABG HCO3 35.1 mmol/L (20.0-26.0) H 10/16/20 05:10 ABG O2 Saturation 97.4 (0-100) 10/25/20 18:10 ABG O2 Content 10.8 (0.0-44) 10/16/20 05:10 POC ABG Base Excess 7.8 10/25/20 18:10 ABG Base Excess 9.5 mmol/L (-2.0-3.0) H 10/16/20 05:10 ABG Hemoglobin 11.2 (12.0-17.5) L 10/25/20 18:10 ABG Oxyhemoglobin 96.2 (94-98) 10/25/20 18:10 ABG Carboxyhemoglobin 1.9 % (0.0-5.0) 10/16/20 05:10 ABG Methemoglobin 0.3 (0.0-1.5) 10/25/20 18:10 ABG Sodium 144.9 mmol/L (136.0-145.0) 10/25/20 18:10 ABG Potassium 3.8 mmol/L (3.40-4.50) 10/25/20 18:10 ABG Chloride 108.0 mmol/L (98-107) H 10/25/20 18:10 ABG Glucose 167 mg/dL (65-95) H 10/25/20 18:10 VBG pH 6.870 (7.320-7.420) L* 10/10/20 10:48 Oxyhemoglobin 95.3 % (95.0-99.0) 10/16/20 05:10 Carboxyhemoglobin 0.9 (0.5-1.5) 10/25/20 18:10 FiO2 35 % 10/16/20 05:10 FiO2 % 30 10/25/20 18:10 Sodium 147 mmol/L (137-145) H 10/28/20 07:00 Potassium 4.2 mmol/L (3.6-5.0) 10/28/20 07:00 Chloride 104.6 mmol/L (98-107) 10/28/20 07:00 Carbon Dioxide 35 mmol/L (22-30) H 10/28/20 07:00 Anion Gap 12 mmol/L 10/28/20 07:00 BUN 39 mg/dL (9-20) H 10/28/20 07:00 Creatinine 1.2 mg/dL (0.8-1.3) 10/28/20 07:00 Estimated GFR > 60 ml/min 10/28/20 07:00 BUN/Creatinine Ratio 33 % 10/28/20 07:00 Glucose 133 mg/dL (75-100) H 10/28/20 07:00 POC Glucose 109 mg/dL (70-105) H 10/28/20 17:15 Hemoglobin A1c 6.0 % (4-6) 10/11/20 02:00 Lactic Acid 1.10 mmol/L (0.7-2.0) 10/13/20 04:52 Calcium 9.2 mg/dL (8.4-10.2) 10/28/20 07:00 Phosphorus 5.20 mg/dL (2.5-4.5) H D 10/17/20 03:32 Magnesium 2.30 mg/dL (1.7-2.3) 10/17/20 03:32 Ferritin 81.4 ng/mL (30.0-300.0) 10/10/20 10:48 Total Bilirubin 1.70 mg/dL (0.1-1.2) H 10/18/20 03:27 AST 37 units/L (5-40) 10/18/20 03:27 ALT 32 units/L (7-56) 10/18/20 03:27 Alkaline Phosphatase 97 units/L (35-129) 10/18/20 03:27 Ammonia 214.0 umol/L (25-60) H 10/10/20 10:46 Lactate Dehydrogenase 386 units/L (91-180) H 10/10/20 10:48 Total Creatine Kinase 1192 units/L (55-170) H 10/10/20 18:18 CK-MB (CK-2) 21.7 ng/mL (0.0-4.0) H 10/10/20 18:18 CK-MB (CK-2) Rel Index 1.8 (0-4) 10/10/20 18:18 Troponin T 0.125 ng/mL (0.00-0.029) H* D 10/12/20 04:00 C-Reactive Protein 0.90 mg/dL (0.00-1.30) 10/10/20 10:48 NT-Pro-B Natriuret Pep 1187 pg/mL (0-900) H 10/10/20 10:46 Total Protein 6.3 g/dL (6.3-8.2) 10/18/20 03:27 Albumin 3.1 g/dL (3.9-5) L 10/18/20 03:27 Albumin/Globulin Ratio 1.0 % 10/18/20 03:27 Triglycerides 278 mg/dL (2-149) H 10/13/20 04:52 Cholesterol 138 mg/dL (50-199) 10/10/20 18:18 LDL Cholesterol Direct 76 mg/dL (50-130) 10/10/20 18:18 HDL Cholesterol 49 mg/dL (40-59) 10/10/20 18:18 Cholesterol/HDL Ratio 2.81 % 10/10/20 18:18 Procalcitonin 4.98 ng/mL (<0.15) 10/15/20 04:12 TSH 6.260 mlU/mL (0.270-4.200) H 10/10/20 10:46 Arterial Blood Glucose 167 mg/dL (65-95) H 10/25/20 18:10 Arterial Blood Ionized Calcium 5.1 mg/dL (4.6-5.3) 10/25/20 18:10 Urine Color Angelica (Yellow) 10/18/20 Unknown Urine Turbidity Cloudy (Clear) 10/18/20 Unknown Urine pH 5.0 (5.0-7.0) 10/18/20 Unknown Ur Specific [place] 1.017 (1.003-1.030) 10/18/20 Unknown Urine Protein 100 mg/dl mg/dL (Negative) 10/18/20 Unknown Urine Glucose (UA) Neg mg/dL (Negative) 10/18/20 Unknown Urine Ketones Neg mg/dL (Negative) 10/18/20 Unknown Urine Blood Lg (Negative) 10/18/20 Unknown Urine Nitrite Neg (Negative) 10/18/20 Unknown Urine Bilirubin Neg (Negative) 10/18/20 Unknown Urine Urobilinogen 4.0 mg/dL (<2.0) 10/18/20 Unknown Ur Leukocyte Esterase Neg (Negative) 10/18/20 Unknown Urine WBC (Auto) 115.0 /HPF (0.0-6.0) H 10/18/20 Unknown Urine RBC (Auto) 98.0 /HPF (0.0-6.0) 10/18/20 Unknown U Epithel Cells (Auto) 2.0 /HPF (0-13.0) 10/18/20 Unknown Urine WBC Clumps 3+ /HPF 10/18/20 Unknown Urine Mucus Few /HPF 10/11/20 13:30 Urine Eosinophils None seen (None Seen) 10/11/20 13:30 Urine Creatinine 93.7 mg/dL (0.1-20.0) H 10/19/20 13:14 Urine Sodium 25 mmol/L 10/19/20 13:14 Urine Urea Nitrogen 845 10/19/20 13:14 Nasal Screen MRSA (PCR) Positive (Negative) 10/20/20 13:30 Random Vancomycin 5.8 ug/mL (0-40.0) 10/21/20 06:30 Urine Opiates Screen Negative 10/10/20 10:50 Urine Methadone Screen Negative 10/10/20 10:50 Ur Barbiturates Screen Negative 10/10/20 10:50 Ur Phencyclidine Scrn Negative 10/10/20 10:50 Ur Amphetamines Screen Negative 10/10/20 10:50 U Benzodiazepines Scrn Negative 10/10/20 10:50 Urine Cocaine Screen Negative 10/10/20 10:50 U Marijuana (THC) Screen Positive 10/10/20 10:50 Drugs of Abuse Note Disclamer 10/10/20 10:50 Plasma/Serum Alcohol < 0.01 % (0-0.07) 10/10/20 10:48 Coronavirus (PCR) Negative (Negative) 10/11/20 Unknown Blood Type AB POSITIVE 10/10/20 10:48 Antibody Screen Negative 10/10/20 10:48 Tuttle/IV: Voiding Method Condom Catheter Active Medications - Current Medications Current Medications: Generic Name Dose Route Start Last Admin Trade Name Freq PRN Reason Stop Dose Admin Acetaminophen 650 mg 10/10/20 21:51 10/20/20 09:11 Acetaminophen 325 Mg Tab PO 650 mg Q4H PRN Administration Pain MILD(1-3)/Fever >100.5/SALVADOR Acetaminophen 650 mg 10/11/20 11:24 10/17/20 17:16 Acetaminophen 650 Mg Rect Supp CO 650 mg Q6H PRN Administration Fever >101 Albuterol 2.5 mg 10/11/20 13:12 Albuterol 2.5 Mg/3 Ml Nebu IH Q6HRT PRN Shortness Of Breath Amlodipine Besylate 10 mg 10/25/20 13:00 10/28/20 09:42 Amlodipine 10 Mg Tab PO 10 mg QDAY PEPITO Administration Lipase/Protease/Amylase 1 each 10/10/20 22:18 Lipase 10,500/Protease 25,000/Amylase 43,750 (Units) Dr Cap FEEDTUBE PRN PRN For Clogged Feeding Tube Clonidine HCl 0.3 mg 10/14/20 15:00 10/28/20 14:58 Clonidine Tts 0.3 Mg/24 Hr Patch TD 0.3 mg Fr PEPITO Administration Docusate Sodium 100 mg 10/16/20 22:00 10/28/20 09:41 Docusate Sodium 100 Mg/10 Ml Oral Liqd PO 100 mg BID PEPITO Administration Fentanyl 50 mcg 10/16/20 14:10 10/23/20 10:53 Fentanyl 100 Mcg/2 Ml Inj IV 50 mcg Q10MIN PRN Administration ANALGESIA Glycopyrrolate 2 mg 10/19/20 14:00 10/28/20 13:14 Glycopyrrolate 1 Mg Tab PO 2 mg Q6H PEPITO Administration Heparin Sodium (Porcine) 5,000 unit 10/11/20 22:00 10/28/20 10:01 Heparin 5,000 Unit/1 Ml Vial SUB-Q 5,000 unit Q12HR PEPITO Administration Hydralazine HCl 5 mg 10/15/20 20:25 10/27/20 18:44 Hydralazine 20 Mg/1 Ml Inj IV 5 mg Q6H PRN Administration Hypertension Hydralazine HCl 100 mg 10/24/20 09:30 10/28/20 13:11 Hydralazine 25 Mg Tab PO 100 mg Q8HR PEPITO Administration Hydrophilic Ointment 1 applic 10/10/20 10:34 Lip Therapy Vaseline TP Q2HR PRN Dry Lips Levetiracetam 500 mg/ Dextrose 105 mls @ 400 mls/hr 10/13/20 18:00 10/28/20 18:25 IV 400 mls/hr Q12H PEPITO Administration Fentanyl Citrate 2,000 mcg in 100 mls @ 6.175 mls/hr 10/16/20 15:00 10/28/20 18:26 Fentanyl Drip Premix IV Infused TITR PEPITO Titration Protocol 1 MCG/KG/HR Linezolid 600 mg in 300 mls @ 300 mls/hr 10/20/20 12:00 10/28/20 09:42 Zyvox 600mg/300ml IV 10/29/20 22:59 300 mls/hr Q12HR PEPITO Administration Protocol Dextrose 1,000 mls @ 50 mls/hr 10/28/20 16:00 10/28/20 16:13 D5w IV 10/29/20 11:59 50 mls/hr DIRECT PEPITO Administration Lansoprazole 30 mg 10/24/20 10:00 10/28/20 09:42 Lansoprazole 30 Mg Solutab FEEDTUBE 30 mg BID PEPITO Administration Metoclopramide HCl 10 mg 10/10/20 21:51 Metoclopramide 10 Mg/2 Ml Inj IV Q6H PRN Nausea And Vomiting Metoprolol Tartrate 100 mg 10/21/20 14:00 10/28/20 13:12 Metoprolol Tartrate 50 Mg Tab PO 100 mg TID PEPITO Administration Multi-Ingred Cream/Lotion/Oil/Oint 1 applic 10/10/20 10:34 Mineral Oil/Petrolatum, White Ophth Oint 3.5 Gm OU Q4HR PRN Dry Eye(s) Ondansetron HCl 4 mg 10/10/20 21:51 Ondansetron 4 Mg/2 Ml Inj IV Q3H PRN Nausea And Vomiting Polyethylene Glycol 17 gm 10/17/20 10:00 10/28/20 09:41 Polyethylene Glycol 3350 17 Gm Powder PO 17 gm QDAY PEPITO Administration Scopolamine 1 each 10/17/20 10:00 10/26/20 10:03 Scopolamine Transdermal Patch 72 Hr TD 1 each Q3D PEPITO Administration Simple Syrup 15 ml 10/10/20 22:18 Simple Syrup 15 Ml FEEDTUBE PRN PRN Hypoglycemia Simple Syrup 30 ml 10/10/20 22:18 Simple Syrup 15 Ml FEEDTUBE PRN PRN Hypoglycemia Sodium Bicarbonate 325 mg 10/10/20 22:18 Sodium Bicarbonate 325 Mg Tab FEEDTUBE PRN PRN For Clogged Feeding Tube Sodium Chloride 10 ml 10/10/20 22:00 10/28/20 09:43 Sodium Chloride 0.9% 10 Ml Flush Syringe IV 10 ml BID PEPITO Administration Sodium Chloride 10 ml 10/10/20 21:51 10/21/20 09:56 Sodium Chloride 0.9% 10 Ml Flush Syringe IV 10 ml PRN PRN Administration LINE FLUSH Nutrition/Malnutrition Assess - Dietary Evaluation Nutrition/Malnutrition Findings: Nutrition Notes Start: 10/11/20 08:38 Freq: Status: Active Protocol: Document 10/27/20 11:40 CW (Rec: 10/27/20 12:13 CW [id number]) Nutrition Notes Initial or Follow up Reassessment Current Diagnosis Acute Kidney Injury,Sepsis, Hypertension,Heart Failure, Respiratory Failure Other Pertinent Diagnosis GIB, pneu, MRSA UT, pulmonary edema Current Diet NPO Labs/Tests Na 146 BUN 45 Pertinent Medications Miralax Colace Height 6 ft Weight 126 kg [place] Body Weight (kg) 80.90 BMI 37.6 Weight change and time frame weight stable Weight Status Morbidly Obese Subjective/Other Information F/U for TF tolerance and renal related labs. TF held at midnight today for PEG and Trach placement per RN. Renal functioing improving recommend change TF to better meet protein needs. Percent of energy/protein needs met: 100%/54% (prior to TF being on hold) Burn Absent Trauma Absent Difficulty In Swallowing Current % PO Negligible Minimum of two criteria No Fluid Accumulation Mild (non-severe) #1 Nutrition Diagnosis Inadequate oral intake Diagnosis Progress(for reassessment Continues documentation) Is patient on ventilator? Yes Is Patient Ambulatory and/or Out of Bed No REE-([facility]-confined to bed) 2575.176 Kcal/Kg value to use for calculation 15 Approximate Energy Requirements Using 1890 kcal/Kg Calculation Used for Recommendations Kcal/kg Additional Notes protein needs: >162g (>2 kgIBW ) fluid needs: 1 ml/kcal or per MD Nutrition Intervention Change Diet Order: Restart TF, recommend change Nutrition Support: Promote at 80 ml/hr with a free water flush of 200 ml q4hr for hypernatremia. Once hypernatremia resolved, resume flush of 50 ml q4h. Kcal 1,920 Protein (gm) 120 Fluid (mL) 1,611 Goal #1 Tolerate TF Goal #2 Meet protein and kcal needs via TF as best as possible Anticipated Discharge Needs: TF Follow-Up By: 10/31/20 Additional Comments F/U for TF restart, renal related labs, trach and peg placement
[2020-10-28] MEDS: cloNIDine TTS 0.3 MG/24 HR PATCH TD SCH (14:58)
--- NOTE | 2020-10-28 14:59 | Progress Note ---
Assessment and Plan SARS CoV2 PCR: negative. 10/10/2020 blood culture: No growth 10/10/2020 ET aspirate culture: Usual respiratory antonio 10/11/2020 urine culture: no growth 10/18/2020 blood culture: No growth today 10/18/2020 tracheal aspirate date: MRSA 10/20/2020 right nare MRSA A/P: 55-year-old male with hypertension, asthma, obesity came into the emergency room after receiving the Covid vaccine and passing out in the car at the emergency room bay. Patient was found to be unresponsive with no pulse, ACLS was initiated: #Sepsis, likely secondary to pneumonia. COVID negative. No fever for 48 hours, leukocytosis is downtrending, noted right nostril copious purulunce on 10/18-10/20 now resolved. ?sinusitis +/- UTI +/-MRSA pneumonia. #Right-sided pneumonia: Possible aspiration during ACLS. Procalcitonin low. Chest x-ray with persistent lung opacities. Tracheal aspirate now with MRSA. Patient with persistent fever. Completed 9 days of cefepime. #Presumed right sided sinusitis: culture +MRSA, left NGT removed #Acute hypoxic respiratory failure: On mechanical ventilation. #MOE: Renally dose antibiotics. Worsening. Renal on board. #Elevated LFTs: Likely from sepsis #Urine tox screen positive for THC #Acute encephalopathy: neurology on board, evaluation in process. #UTI: Urine culture no growth. Repeat UA with worsening pyuria. Completed 9 days of cefepime. #Anoxic brain injury Recs: -Continue linezolid 600 g IV twice a day total 10 days D9 of 10 -May be some element of central fevers given anoxic brain injury. Patient with anoxic brain injury, poor prognosis. Dr. Marquez covering this weekend Kelin Baumann MD [facility] O: [phone] F: [phone] Subjective Date of service: 10/28/20 Principal diagnosis: Cardiac arrest; Septic Shock; Ac. hypoxemic & hypercapnic resp failure; MOE Interval history: Afebrile, white count 12.5. No other acute changes. Objective - Exam Narrative Exam: General appearance: Open eyes, intubated Eyes: anicteric sclerae, moist conjunctivae; no lid-lag; PERRLA HENT: Normocephalic, Atraumatic; normal external ears, oropharynx endotracheal tube in place Neck: supple, tracheal midline, no JVD Lungs: Bilateral rhonchi CV: RRR no murmur Abdomen: Soft, nontender Extremities: no edema, no cyanosis Skin: No rash. Psych: No agitated Neuro: Alert does not follow commands - Constitutional Vitals: Vital Signs Temp Pulse Resp BP Pulse Ox 98.4 F 67 12 170/87 98 10/28/20 11:00 10/28/20 14:00 10/28/20 14:00 10/28/20 14:00 10/28/20 14:00 Temperature -Last 24 Hours Temperature 98.4 F Temperature 98.3 F Temperature 98.9 F Temperature 98.8 F Temperature 98.9 F - Labs CBC & Chem 7: 10/28/20 09:00 10/28/20 07:00 Labs: Abnormal lab results 10/27/20 10/27/20 10/28/20 Range/Units 18:52 23:03 07:00 WBC (4.5-11.0) K/mm3 RBC (3.65-5.03) M/mm3 Hgb (11.8-15.2) gm/dl Hct (35.5-45.6) % Sodium 147 H (137-145) mmol/L Carbon Dioxide 35 H (22-30) mmol/L BUN 39 H (9-20) mg/dL Glucose 133 H (75-100) mg/dL POC Glucose 119 H 158 H (70-105) mg/dL 10/28/20 10/28/20 Range/Units 09:00 11:47 WBC 12.5 H (4.5-11.0) K/mm3 RBC 3.58 L (3.65-5.03) M/mm3 Hgb 10.5 L (11.8-15.2) gm/dl Hct 32.1 L (35.5-45.6) % Sodium (137-145) mmol/L Carbon Dioxide (22-30) mmol/L BUN (9-20) mg/dL Glucose (75-100) mg/dL POC Glucose 129 H (70-105) mg/dL
[2020-10-28] MEDS ORDERED: fentaNYL 25 MCG/HR PATCH 72HR TD ONE (16:00)
[2020-10-28] MEDS ORDERED: DEXTROSE 5% IN WATER 1,000 ML IV SCH (16:00)
--- NOTE | 2020-10-28 17:07 | Progress Note ---
Assessment and Plan Cardiac arrest x3 with ROSC Severe septic and cardiogenic shock Acute respiratory failure with hypoxemia and hypercarbia Acute pulmonary edema MOE (acute kidney injury) Lactic acidosis, severe metabolic acidosis Bilateral pneumonia, aspiration pneumonia Elevated troponins - begin D5W @ 50 mls X 1 liter till tube feeds resumed - place Fentanyl 25 sophie's/hr patch X 1 and wean off IV fentanyl - continue contact precautions re: MRSA - complete Zyvox dosing - continue care as below otherwise; - continue to hold on full anticoagulation re: negative Dopplers and clinical improvement in oxygenation - de-escalate empiric anti-infective's per ID rec's (on Zyvox) - follow clinically re: fevers / WBC - Monitor hemodynamics closely - continue daily SAT's and SBT assessment as tolerated - wean supplemental oxygen for target O2 sat's > 92% acutely - VAP bundle addressed - continue lung protective strategies - bronchodilators with pulmonary hygiene per RT - wean per pulmonary driven protocols otherwise - Monitor urine output closely - bicarbonate infusion - avoid nephrotoxins, renally dose all medications - continue to avoid benzodiazepine's, reduce the possibility of delirium - continue Scopolamine for secretion control - continue wound care per RN/WCN - prn analgesia per CPOT score - Maintenance of sleep-wake cycle, avoid delirium - continue enteral nutritional support at goal rate as tolerated - G.I. & VTE prophylaxis - PT/OT/ROM exercises - continue mobility protocols for pressure ulcer prophylaxis - Monitor hemodynamics closely - continue other care per attending / other consultants - discharge planning ongoing concurrently .... Re-evaluate in am & prn CONDITION: CRITICAL PROGNOSIS: GUARDED CODE STATUS: FULL CODE The high probability of a clinically significant, sudden or life-threatening deterioration of the [respiratory, cardiovascular & neurologic] system(s) required my full and direct attention, intervention and personal management. The aggregate critical care time was [34] minutes without overlap. Time includes spent on; [x] Data Review and interpretation [x] Patient assessment and monitoring of vital signs [x] Documentation [x] Medication orders and management Subjective Date of service: 10/28/20 Principal diagnosis: Cardiac arrest; Septic Shock; Ac. hypoxemic & hypercapnic resp failure; MOE Interval history: Patient is seen today for: Cardiac arrest with ROSC; Severe septic and cardiogenic shock; Acute respiratory failure with hypoxemia and hypercarbia; Acute pulmonary edema; MOE; Lactic acidosis; severe metabolic acidosis; Bilateral pneumonia; aspiration pneumonia; Elevated troponins Seen and examined at bedside; 24hour events reviewed; nursing and respiratory care staff consulted; no adverse overnight events reported to me; resting peacefully in bed; to begin PEG use in am; AMS is persistent; he is tolerating SBT today; no emesis or overt aspiration Objective Vital Signs - 12hr 10/28/20 10/28/20 10/28/20 05:30 05:39 06:00 Temperature Pulse Rate 72 65 79 Respiratory 18 19 Rate Blood Pressure 157/99 146/87 167/104 O2 Sat by Pulse 96 97 93 Oximetry O2 Sat by Pulse Oximetry [ Assessment] 10/28/20 10/28/20 10/28/20 06:02 06:30 07:00 Temperature Pulse Rate 76 74 73 Respiratory 17 17 Rate Blood Pressure 179/111 179/111 153/96 O2 Sat by Pulse 94 95 Oximetry O2 Sat by Pulse Oximetry [ Assessment] 10/28/20 10/28/20 10/28/20 07:30 07:35 07:46 Temperature 98.3 F Pulse Rate 72 72 Respiratory 17 Rate Blood Pressure 162/107 153/96 O2 Sat by Pulse 96 96 Oximetry O2 Sat by Pulse Oximetry [ Assessment] 10/28/20 10/28/20 10/28/20 08:00 08:02 08:30 Temperature Pulse Rate 78 74 72 Respiratory 15 13 Rate Blood Pressure 152/84 169/99 169/99 O2 Sat by Pulse 97 96 Oximetry O2 Sat by Pulse Oximetry [ Assessment] 10/28/20 10/28/20 10/28/20 09:00 09:30 09:42 Temperature Pulse Rate 64 67 65 Respiratory 15 15 Rate Blood Pressure 170/89 171/90 171/90 O2 Sat by Pulse 97 97 Oximetry O2 Sat by Pulse Oximetry [ Assessment] 10/28/20 10/28/20 10/28/20 10:00 10:30 11:00 Temperature 98.4 F Pulse Rate 65 63 61 Respiratory 12 12 12 Rate Blood Pressure 171/90 173/91 172/95 O2 Sat by Pulse 99 98 Oximetry O2 Sat by Pulse Oximetry [ Assessment] 10/28/20 10/28/20 10/28/20 11:30 11:48 12:00 Temperature 98.4 F Pulse Rate 62 65 71 Respiratory 16 13 Rate Blood Pressure 172/95 150/90 172/95 O2 Sat by Pulse 100 99 Oximetry O2 Sat by Pulse Oximetry [ Assessment] 10/28/20 10/28/20 10/28/20 12:02 12:30 13:00 Temperature Pulse Rate 61 61 Respiratory 14 14 Rate Blood Pressure 173/92 160/85 O2 Sat by Pulse 98 99 Oximetry O2 Sat by Pulse 100 Oximetry [ Assessment] 10/28/20 10/28/20 10/28/20 13:11 13:12 13:30 Temperature Pulse Rate 68 72 62 Respiratory 16 Rate Blood Pressure 160/85 160/75 160/85 O2 Sat by Pulse 99 Oximetry O2 Sat by Pulse Oximetry [ Assessment] 10/28/20 10/28/20 10/28/20 14:00 14:58 15:00 Temperature Pulse Rate 67 67 63 Respiratory 12 10 L Rate Blood Pressure 170/87 139/73 167/83 O2 Sat by Pulse 98 99 Oximetry O2 Sat by Pulse Oximetry [ Assessment] Constitutional: no acute distress, other (middle aged obese male with mildly increased respiratory efort at rest) Eyes: non-icteric ENT: oropharynx moist, other (ETT 24 cm ANNIE) Neck: supple, no lymphadenopathy, no JVD Effort: mildly labored Ascultation: Bilateral: clear, diminished breath sounds, rhonchi Percussion: Bilateral: not dull Cardiovascular: regular rate and rhythm, other (S1,S2) Gastrointestinal: normoactive bowel sounds, soft, non-tender, non-distended (protuberant) Integumentary: normal Extremities: no cyanosis, no edema, pulses normal, no ischemia or petechiae Neurologic: pupils equal and round, unable to assess Psychiatric: other (unable to assess re: AMS) CBC and BMP: 10/28/20 09:00 10/28/20 07:00 ABG, PT/INR, D-dimer: ABG ABG pH 7.424 (7.320-7.450) 10/25/20 18:10 POC ABG pCO2 52.3 mmHg (32.0-48.0) H 10/25/20 18:10 ABG pCO2 55.5 mm Hg 10/16/20 05:10 POC ABG pO2 97.1 mmHg (83-108) 10/25/20 18:10 ABG pO2 104.5 mm Hg (80.0-90.0) H 10/16/20 05:10 POC ABG HCO3 33.5 10/25/20 18:10 ABG O2 Saturation 97.4 (0-100) 10/25/20 18:10 PT/INR, D-dimer PT 13.5 Sec. (12.2-14.9) 10/28/20 07:00 INR 1.05 (0.87-1.13) 10/28/20 07:00 D-Dimer 679.5 ng/mlDDU (0-234) H 10/10/20 10:48 Abnormal lab findings: Abnormal Labs 10/10/20 10/10/20 10/10/20 10:46 10:46 10:46 WBC RBC Hgb Hct RDW Lymph % (Auto) [place] % (Auto) Lymph # (Auto) [place] # (Auto) Seg Neutrophils % Lymphocytes % (Manual) Monocytes % (Manual) Seg Neutrophils # Seg Neutrophils # Man Lymphocytes # (Manual) Monocytes # (Manual) D-Dimer Heparin Anti-Xa Level ABG pH POC ABG pCO2 POC ABG pO2 ABG pO2 ABG HCO3 ABG O2 Saturation ABG Base Excess ABG Hemoglobin ABG Oxyhemoglobin ABG Sodium ABG Potassium ABG Chloride ABG Glucose VBG pH Oxyhemoglobin Carboxyhemoglobin Sodium Potassium Chloride Carbon Dioxide BUN Creatinine Glucose POC Glucose Lactic Acid 13.60 H* Calcium Phosphorus Magnesium Total Bilirubin AST ALT Ammonia 214.0 H Lactate Dehydrogenase Total Creatine Kinase CK-MB (CK-2) Troponin T NT-Pro-B Natriuret Pep Total Protein Albumin Triglycerides TSH 6.260 H Arterial Blood Glucose Arterial Blood Ionized Calcium Urine pH Urine WBC (Auto) Urine Creatinine 10/10/20 10/10/20 10/10/20 10:46 10:48 10:48 WBC RBC 5.28 H Hgb 15.5 H Hct 48.8 H RDW Lymph % (Auto) [place] % (Auto) Lymph # (Auto) [place] # (Auto) Seg Neutrophils % Lymphocytes % (Manual) 42.0 H Monocytes % (Manual) Seg Neutrophils # Seg Neutrophils # Man Lymphocytes # (Manual) Monocytes # (Manual) D-Dimer Heparin Anti-Xa Level ABG pH POC ABG pCO2 POC ABG pO2 ABG pO2 ABG HCO3 ABG O2 Saturation ABG Base Excess ABG Hemoglobin ABG Oxyhemoglobin ABG Sodium ABG Potassium ABG Chloride ABG Glucose VBG pH Oxyhemoglobin Carboxyhemoglobin Sodium Potassium 3.3 L Chloride 91.2 L Carbon Dioxide BUN Creatinine 1.8 H Glucose 231 H POC Glucose Lactic Acid Calcium Phosphorus Magnesium Total Bilirubin AST 60 H ALT 57 H Ammonia Lactate Dehydrogenase Total Creatine Kinase CK-MB (CK-2) Troponin T NT-Pro-B Natriuret Pep 1187 H Total Protein 9.0 H Albumin Triglycerides TSH Arterial Blood Glucose Arterial Blood Ionized Calcium Urine pH Urine WBC (Auto) Urine Creatinine 10/10/20 10/10/20 10/10/20 10:48 10:48 10:48 WBC RBC Hgb Hct RDW Lymph % (Auto) [place] % (Auto) Lymph # (Auto) [place] # (Auto) Seg Neutrophils % Lymphocytes % (Manual) Monocytes % (Manual) Seg Neutrophils # Seg Neutrophils # Man Lymphocytes # (Manual) Monocytes # (Manual) D-Dimer 679.5 H Heparin Anti-Xa Level ABG pH POC ABG pCO2 POC ABG pO2 ABG pO2 ABG HCO3 ABG O2 Saturation ABG Base Excess ABG Hemoglobin ABG Oxyhemoglobin ABG Sodium ABG Potassium ABG Chloride ABG Glucose VBG pH 6.870 L* Oxyhemoglobin Carboxyhemoglobin Sodium Potassium Chloride Carbon Dioxide BUN Creatinine Glucose POC Glucose Lactic Acid Calcium Phosphorus Magnesium Total Bilirubin AST ALT Ammonia Lactate Dehydrogenase 386 H Total Creatine Kinase CK-MB (CK-2) Troponin T NT-Pro-B Natriuret Pep Total Protein Albumin Triglycerides TSH Arterial Blood Glucose Arterial Blood Ionized Calcium Urine pH Urine WBC (Auto) Urine Creatinine 10/10/20 10/10/20 10/10/20 14:10 14:20 15:50 WBC RBC Hgb Hct RDW Lymph % (Auto) [place] % (Auto) Lymph # (Auto) [place] # (Auto) Seg Neutrophils % Lymphocytes % (Manual) Monocytes % (Manual) Seg Neutrophils # Seg Neutrophils # Man Lymphocytes # (Manual) Monocytes # (Manual) D-Dimer Heparin Anti-Xa Level ABG pH 7.175 L 7.247 L POC ABG pCO2 85.0 H POC ABG pO2 43.7 L ABG pO2 60.3 L ABG HCO3 32.0 H ABG O2 Saturation 86.1 L ABG Base Excess ABG Hemoglobin ABG Oxyhemoglobin 67.7 L ABG Sodium ABG Potassium ABG Chloride ABG Glucose 247 H VBG pH Oxyhemoglobin 84.4 L Carboxyhemoglobin Sodium Potassium Chloride Carbon Dioxide BUN Creatinine Glucose POC Glucose Lactic Acid 4.00 H* Calcium Phosphorus Magnesium Total Bilirubin AST ALT Ammonia Lactate Dehydrogenase Total Creatine Kinase CK-MB (CK-2) Troponin T NT-Pro-B Natriuret Pep Total Protein Albumin Triglycerides TSH Arterial Blood Glucose 247 H Arterial Blood Ionized Calcium 4.4 L Urine pH Urine WBC (Auto) Urine Creatinine 10/10/20 10/10/20 10/10/20 15:50 16:22 18:18 WBC RBC Hgb Hct RDW Lymph % (Auto) [place] % (Auto) Lymph # (Auto) [place] # (Auto) Seg Neutrophils % Lymphocytes % (Manual) Monocytes % (Manual) Seg Neutrophils # Seg Neutrophils # Man Lymphocytes # (Manual) Monocytes # (Manual) D-Dimer Heparin Anti-Xa Level ABG pH 7.171 L POC ABG pCO2 96.6 H POC ABG pO2 55.3 L ABG pO2 ABG HCO3 ABG O2 Saturation ABG Base Excess ABG Hemoglobin ABG Oxyhemoglobin 81.4 L ABG Sodium ABG Potassium ABG Chloride ABG Glucose 115 H VBG pH Oxyhemoglobin Carboxyhemoglobin Sodium Potassium Chloride Carbon Dioxide BUN Creatinine Glucose POC Glucose 132 H Lactic Acid Calcium Phosphorus Magnesium Total Bilirubin AST ALT Ammonia Lactate Dehydrogenase Total Creatine Kinase 1192 H CK-MB (CK-2) 21.7 H Troponin T 0.377 H* D NT-Pro-B Natriuret Pep Total Protein Albumin Triglycerides TSH Arterial Blood Glucose 115 H Arterial Blood Ionized Calcium Urine pH Urine WBC (Auto) Urine Creatinine 10/10/20 10/10/20 10/10/20 18:18 18:18 22:49 WBC 23.0 H RBC 5.12 H Hgb Hct RDW Lymph % (Auto) [place] % (Auto) Lymph # (Auto) [place] # (Auto) Seg Neutrophils % Lymphocytes % (Manual) 4.0 L Monocytes % (Manual) 9.0 H Seg Neutrophils # Seg Neutrophils # Man 13.8 H Lymphocytes # (Manual) 0.9 L Monocytes # (Manual) 2.1 H D-Dimer Heparin Anti-Xa Level ABG pH POC ABG pCO2 POC ABG pO2 ABG pO2 ABG HCO3 ABG O2 Saturation ABG Base Excess ABG Hemoglobin ABG Oxyhemoglobin ABG Sodium ABG Potassium ABG Chloride ABG Glucose VBG pH Oxyhemoglobin Carboxyhemoglobin Sodium 146 H Potassium Chloride Carbon Dioxide 34 H D BUN 27 H Creatinine 2.7 H Glucose 102 H POC Glucose Lactic Acid Calcium Phosphorus Magnesium Total Bilirubin AST 90 H ALT 66 H Ammonia Lactate Dehydrogenase Total Creatine Kinase CK-MB (CK-2) Troponin T 0.273 H* D NT-Pro-B Natriuret Pep Total Protein Albumin Triglycerides TSH Arterial Blood Glucose Arterial Blood Ionized Calcium Urine pH Urine WBC (Auto) Urine Creatinine 10/11/20 10/11/20 10/11/20 02:00 02:00 02:00 WBC 17.3 H RBC Hgb Hct RDW Lymph % (Auto) 3.9 L [place] % (Auto) Lymph # (Auto) 0.7 L [place] # (Auto) Seg Neutrophils % 93.0 H Lymphocytes % (Manual) Monocytes % (Manual) Seg Neutrophils # 16.1 H Seg Neutrophils # Man Lymphocytes # (Manual) Monocytes # (Manual) D-Dimer Heparin Anti-Xa Level ABG pH POC ABG pCO2 POC ABG pO2 ABG pO2 ABG HCO3 ABG O2 Saturation ABG Base Excess ABG Hemoglobin ABG Oxyhemoglobin ABG Sodium ABG Potassium ABG Chloride ABG Glucose VBG pH Oxyhemoglobin Carboxyhemoglobin Sodium 149 H Potassium 3.3 L Chloride 95.3 L Carbon Dioxide 37 H BUN 29 H Creatinine 2.6 H Glucose POC Glucose Lactic Acid Calcium Phosphorus Magnesium Total Bilirubin AST 80 H ALT 59 H Ammonia Lactate Dehydrogenase Total Creatine Kinase CK-MB (CK-2) Troponin T 0.201 H* D NT-Pro-B Natriuret Pep Total Protein Albumin 3.6 L Triglycerides TSH Arterial Blood Glucose Arterial Blood Ionized Calcium Urine pH Urine WBC (Auto) Urine Creatinine 10/11/20 10/11/20 10/11/20 03:51 08:35 11:15 WBC RBC Hgb Hct RDW Lymph % (Auto) [place] % (Auto) Lymph # (Auto) [place] # (Auto) Seg Neutrophils % Lymphocytes % (Manual) Monocytes % (Manual) Seg Neutrophils # Seg Neutrophils # Man Lymphocytes # (Manual) Monocytes # (Manual) D-Dimer Heparin Anti-Xa Level 0.22 L ABG pH 7.491 H POC ABG pCO2 57.6 H POC ABG pO2 ABG pO2 ABG HCO3 ABG O2 Saturation ABG Base Excess ABG Hemoglobin ABG Oxyhemoglobin ABG Sodium 150.0 H ABG Potassium 3.1 L ABG Chloride 96.0 L ABG Glucose 122 H VBG pH Oxyhemoglobin Carboxyhemoglobin Sodium Potassium Chloride Carbon Dioxide BUN Creatinine Glucose POC Glucose 151 H Lactic Acid Calcium Phosphorus Magnesium Total Bilirubin AST ALT Ammonia Lactate Dehydrogenase Total Creatine Kinase CK-MB (CK-2) Troponin T NT-Pro-B Natriuret Pep Total Protein Albumin Triglycerides TSH Arterial Blood Glucose 122 H Arterial Blood Ionized Calcium 3.9 L Urine pH Urine WBC (Auto) Urine Creatinine 10/11/20 10/11/20 10/11/20 13:30 13:30 13:30 WBC 15.0 H RBC Hgb Hct RDW Lymph % (Auto) [place] % (Auto) Lymph # (Auto) [place] # (Auto) Seg Neutrophils % Lymphocytes % (Manual) Monocytes % (Manual) Seg Neutrophils # Seg Neutrophils # Man Lymphocytes # (Manual) Monocytes # (Manual) D-Dimer Heparin Anti-Xa Level ABG pH POC ABG pCO2 POC ABG pO2 ABG pO2 ABG HCO3 ABG O2 Saturation ABG Base Excess ABG Hemoglobin ABG Oxyhemoglobin ABG Sodium ABG Potassium ABG Chloride ABG Glucose VBG pH Oxyhemoglobin Carboxyhemoglobin Sodium Potassium Chloride Carbon Dioxide BUN Creatinine Glucose POC Glucose Lactic Acid Calcium Phosphorus Magnesium Total Bilirubin AST ALT Ammonia Lactate Dehydrogenase Total Creatine Kinase CK-MB (CK-2) Troponin T NT-Pro-B Natriuret Pep Total Protein Albumin Triglycerides TSH Arterial Blood Glucose Arterial Blood Ionized Calcium Urine pH 9.0 H Urine WBC (Auto) 18.0 H Urine Creatinine 80.5 H 10/11/20 10/11/20 10/12/20 17:17 23:14 03:53 WBC RBC Hgb Hct RDW Lymph % (Auto) [place] % (Auto) Lymph # (Auto) [place] # (Auto) Seg Neutrophils % Lymphocytes % (Manual) Monocytes % (Manual) Seg Neutrophils # Seg Neutrophils # Man Lymphocytes # (Manual) Monocytes # (Manual) D-Dimer Heparin Anti-Xa Level ABG pH 7.545 H POC ABG pCO2 54.6 H POC ABG pO2 231.9 H ABG pO2 ABG HCO3 ABG O2 Saturation ABG Base Excess ABG Hemoglobin ABG Oxyhemoglobin 98.5 H ABG Sodium 150.5 H ABG Potassium 3.2 L ABG Chloride 96.0 L ABG Glucose 148 H VBG pH Oxyhemoglobin Carboxyhemoglobin Sodium Potassium Chloride Carbon Dioxide BUN Creatinine Glucose POC Glucose 121 H 135 H Lactic Acid Calcium Phosphorus Magnesium Total Bilirubin AST ALT Ammonia Lactate Dehydrogenase Total Creatine Kinase CK-MB (CK-2) Troponin T NT-Pro-B Natriuret Pep Total Protein Albumin Triglycerides TSH Arterial Blood Glucose 148 H Arterial Blood Ionized Calcium 3.8 L Urine pH Urine WBC (Auto) Urine Creatinine 10/12/20 10/12/20 10/12/20 04:00 05:10 05:12 WBC 14.3 H RBC Hgb 11.6 L Hct 35.2 L RDW Lymph % (Auto) [place] % (Auto) Lymph # (Auto) [place] # (Auto) Seg Neutrophils % Lymphocytes % (Manual) Monocytes % (Manual) Seg Neutrophils # Seg Neutrophils # Man Lymphocytes # (Manual) Monocytes # (Manual) D-Dimer Heparin Anti-Xa Level ABG pH POC ABG pCO2 POC ABG pO2 ABG pO2 ABG HCO3 ABG O2 Saturation ABG Base Excess ABG Hemoglobin ABG Oxyhemoglobin ABG Sodium ABG Potassium ABG Chloride ABG Glucose VBG pH Oxyhemoglobin Carboxyhemoglobin Sodium 155 H Potassium 3.3 L Chloride 97.9 L Carbon Dioxide 47 H* D BUN 50 H Creatinine 3.4 H Glucose 146 H POC Glucose 137 H Lactic Acid Calcium 8.0 L Phosphorus Magnesium Total Bilirubin AST ALT Ammonia Lactate Dehydrogenase Total Creatine Kinase CK-MB (CK-2) Troponin T 0.125 H* D NT-Pro-B Natriuret Pep Total Protein Albumin Triglycerides TSH Arterial Blood Glucose Arterial Blood Ionized Calcium Urine pH Urine WBC (Auto) Urine Creatinine 10/12/20 10/12/20 10/12/20 11:39 16:01 19:49 WBC RBC Hgb Hct RDW Lymph % (Auto) [place] % (Auto) Lymph # (Auto) [place] # (Auto) Seg Neutrophils % Lymphocytes % (Manual) Monocytes % (Manual) Seg Neutrophils # Seg Neutrophils # Man Lymphocytes # (Manual) Monocytes # (Manual) D-Dimer Heparin Anti-Xa Level ABG pH POC ABG pCO2 POC ABG pO2 ABG pO2 ABG HCO3 ABG O2 Saturation ABG Base Excess ABG Hemoglobin ABG Oxyhemoglobin ABG Sodium ABG Potassium ABG Chloride ABG Glucose VBG pH Oxyhemoglobin Carboxyhemoglobin Sodium 157 H Potassium 3.3 L Chloride Carbon Dioxide 47 H* BUN 52 H Creatinine 3.0 H Glucose 137 H POC Glucose 138 H 119 H Lactic Acid Calcium 8.0 L Phosphorus Magnesium Total Bilirubin AST ALT Ammonia Lactate Dehydrogenase Total Creatine Kinase CK-MB (CK-2) Troponin T NT-Pro-B Natriuret Pep Total Protein Albumin Triglycerides TSH Arterial Blood Glucose Arterial Blood Ionized Calcium Urine pH Urine WBC (Auto) Urine Creatinine 10/12/20 10/13/20 10/13/20 23:37 02:28 04:52 WBC RBC Hgb Hct RDW Lymph % (Auto) [place] % (Auto) Lymph # (Auto) [place] # (Auto) Seg Neutrophils % Lymphocytes % (Manual) Monocytes % (Manual) Seg Neutrophils # Seg Neutrophils # Man Lymphocytes # (Manual) Monocytes # (Manual) D-Dimer Heparin Anti-Xa Level ABG pH 7.485 H POC ABG pCO2 57.1 H POC ABG pO2 ABG pO2 ABG HCO3 ABG O2 Saturation ABG Base Excess ABG Hemoglobin ABG Oxyhemoglobin ABG Sodium 152.4 H ABG Potassium ABG Chloride ABG Glucose 129 H VBG pH Oxyhemoglobin Carboxyhemoglobin Sodium 155 H Potassium Chloride Carbon Dioxide 45 H* BUN 52 H Creatinine 2.7 H Glucose 121 H POC Glucose 131 H Lactic Acid Calcium Phosphorus Magnesium 2.40 H Total Bilirubin AST ALT Ammonia Lactate Dehydrogenase Total Creatine Kinase CK-MB (CK-2) Troponin T NT-Pro-B Natriuret Pep Total Protein Albumin Triglycerides 278 H TSH Arterial Blood Glucose 129 H Arterial Blood Ionized Calcium 4.1 L Urine pH Urine WBC (Auto) Urine Creatinine 10/13/20 10/13/20 10/13/20 04:52 05:13 11:37 WBC 14.7 H RBC Hgb 11.7 L Hct RDW 15.8 H Lymph % (Auto) [place] % (Auto) Lymph # (Auto) [place] # (Auto) Seg Neutrophils % Lymphocytes % (Manual) Monocytes % (Manual) Seg Neutrophils # Seg Neutrophils # Man Lymphocytes # (Manual) Monocytes # (Manual) D-Dimer Heparin Anti-Xa Level ABG pH POC ABG pCO2 POC ABG pO2 ABG pO2 ABG HCO3 ABG O2 Saturation ABG Base Excess ABG Hemoglobin ABG Oxyhemoglobin ABG Sodium ABG Potassium ABG Chloride ABG Glucose VBG pH Oxyhemoglobin Carboxyhemoglobin Sodium Potassium Chloride Carbon Dioxide BUN Creatinine Glucose POC Glucose 116 H 116 H Lactic Acid Calcium Phosphorus Magnesium Total Bilirubin AST ALT Ammonia Lactate Dehydrogenase Total Creatine Kinase CK-MB (CK-2) Troponin T NT-Pro-B Natriuret Pep Total Protein Albumin Triglycerides TSH Arterial Blood Glucose Arterial Blood Ionized Calcium Urine pH Urine WBC (Auto) Urine Creatinine 10/13/20 10/14/20 10/14/20 17:50 03:45 04:46 WBC 11.1 H RBC Hgb Hct RDW 15.3 H Lymph % (Auto) [place] % (Auto) Lymph # (Auto) [place] # (Auto) Seg Neutrophils % Lymphocytes % (Manual) Monocytes % (Manual) Seg Neutrophils # Seg Neutrophils # Man Lymphocytes # (Manual) Monocytes # (Manual) D-Dimer Heparin Anti-Xa Level ABG pH POC ABG pCO2 59.6 H POC ABG pO2 ABG pO2 ABG HCO3 ABG O2 Saturation ABG Base Excess ABG Hemoglobin ABG Oxyhemoglobin ABG Sodium 151.4 H ABG Potassium 3.3 L ABG Chloride ABG Glucose 138 H VBG pH Oxyhemoglobin Carboxyhemoglobin 1.6 H Sodium Potassium Chloride Carbon Dioxide BUN Creatinine Glucose POC Glucose 140 H Lactic Acid Calcium Phosphorus Magnesium Total Bilirubin AST ALT Ammonia Lactate Dehydrogenase Total Creatine Kinase CK-MB (CK-2) Troponin T NT-Pro-B Natriuret Pep Total Protein Albumin Triglycerides TSH Arterial Blood Glucose 138 H Arterial Blood Ionized Calcium 4.5 L Urine pH Urine WBC (Auto) Urine Creatinine 10/14/20 10/14/20 10/14/20 04:46 05:10 11:11 WBC RBC Hgb Hct RDW Lymph % (Auto) [place] % (Auto) Lymph # (Auto) [place] # (Auto) Seg Neutrophils % Lymphocytes % (Manual) Monocytes % (Manual) Seg Neutrophils # Seg Neutrophils # Man Lymphocytes # (Manual) Monocytes # (Manual) D-Dimer Heparin Anti-Xa Level ABG pH POC ABG pCO2 POC ABG pO2 ABG pO2 ABG HCO3 ABG O2 Saturation ABG Base Excess ABG Hemoglobin ABG Oxyhemoglobin ABG Sodium ABG Potassium ABG Chloride ABG Glucose VBG pH Oxyhemoglobin Carboxyhemoglobin Sodium 152 H Potassium 3.5 L Chloride Carbon Dioxide 38 H D BUN 46 H Creatinine 2.3 H Glucose 127 H POC Glucose 116 H 114 H Lactic Acid Calcium Phosphorus Magnesium Total Bilirubin AST ALT Ammonia Lactate Dehydrogenase Total Creatine Kinase CK-MB (CK-2) Troponin T NT-Pro-B Natriuret Pep Total Protein Albumin Triglycerides TSH Arterial Blood Glucose Arterial Blood Ionized Calcium Urine pH Urine WBC (Auto) Urine Creatinine 10/14/20 10/14/20 10/15/20 18:53 23:23 04:12 WBC RBC Hgb Hct RDW Lymph % (Auto) [place] % (Auto) Lymph # (Auto) [place] # (Auto) Seg Neutrophils % Lymphocytes % (Manual) Monocytes % (Manual) Seg Neutrophils # Seg Neutrophils # Man Lymphocytes # (Manual) Monocytes # (Manual) D-Dimer Heparin Anti-Xa Level ABG pH POC ABG pCO2 POC ABG pO2 ABG pO2 ABG HCO3 ABG O2 Saturation ABG Base Excess ABG Hemoglobin ABG Oxyhemoglobin ABG Sodium ABG Potassium ABG Chloride ABG Glucose VBG pH Oxyhemoglobin Carboxyhemoglobin Sodium 149 H Potassium 3.2 L Chloride Carbon Dioxide 37 H BUN 40 H Creatinine 2.0 H Glucose 124 H POC Glucose 128 H 113 H Lactic Acid Calcium Phosphorus Magnesium Total Bilirubin AST ALT Ammonia Lactate Dehydrogenase Total Creatine Kinase CK-MB (CK-2) Troponin T NT-Pro-B Natriuret Pep Total Protein Albumin Triglycerides TSH Arterial Blood Glucose Arterial Blood Ionized Calcium Urine pH Urine WBC (Auto) Urine Creatinine 10/15/20 10/15/20 10/15/20 04:22 11:39 17:36 WBC RBC Hgb Hct RDW Lymph % (Auto) [place] % (Auto) Lymph # (Auto) [place] # (Auto) Seg Neutrophils % Lymphocytes % (Manual) Monocytes % (Manual) Seg Neutrophils # Seg Neutrophils # Man Lymphocytes # (Manual) Monocytes # (Manual) D-Dimer Heparin Anti-Xa Level ABG pH POC ABG pCO2 POC ABG pO2 ABG pO2 115.0 H ABG HCO3 38.1 H ABG O2 Saturation ABG Base Excess 11.3 H ABG Hemoglobin 11.0 L ABG Oxyhemoglobin ABG Sodium ABG Potassium ABG Chloride ABG Glucose VBG pH Oxyhemoglobin Carboxyhemoglobin Sodium Potassium Chloride Carbon Dioxide BUN Creatinine Glucose POC Glucose 123 H 118 H Lactic Acid Calcium Phosphorus Magnesium Total Bilirubin AST ALT Ammonia Lactate Dehydrogenase Total Creatine Kinase CK-MB (CK-2) Troponin T NT-Pro-B Natriuret Pep Total Protein Albumin Triglycerides TSH Arterial Blood Glucose Arterial Blood Ionized Calcium Urine pH Urine WBC (Auto) Urine Creatinine 10/15/20 10/16/20 10/16/20 23:18 03:13 05:10 WBC RBC Hgb Hct RDW Lymph % (Auto) [place] % (Auto) Lymph # (Auto) [place] # (Auto) Seg Neutrophils % Lymphocytes % (Manual) Monocytes % (Manual) Seg Neutrophils # Seg Neutrophils # Man Lymphocytes # (Manual) Monocytes # (Manual) D-Dimer Heparin Anti-Xa Level ABG pH POC ABG pCO2 POC ABG pO2 ABG pO2 104.5 H ABG HCO3 35.1 H ABG O2 Saturation ABG Base Excess 9.5 H ABG Hemoglobin 7.9 L ABG Oxyhemoglobin ABG Sodium ABG Potassium ABG Chloride ABG Glucose VBG pH Oxyhemoglobin Carboxyhemoglobin Sodium Potassium 3.3 L Chloride Carbon Dioxide 33 H BUN 37 H Creatinine 1.4 H Glucose 148 H POC Glucose 135 H Lactic Acid Calcium Phosphorus Magnesium 2.40 H Total Bilirubin AST ALT Ammonia Lactate Dehydrogenase Total Creatine Kinase CK-MB (CK-2) Troponin T NT-Pro-B Natriuret Pep Total Protein Albumin Triglycerides TSH Arterial Blood Glucose Arterial Blood Ionized Calcium Urine pH Urine WBC (Auto) Urine Creatinine 10/16/20 10/16/20 10/16/20 06:36 11:08 17:07 WBC RBC Hgb Hct RDW Lymph % (Auto) [place] % (Auto) Lymph # (Auto) [place] # (Auto) Seg Neutrophils % Lymphocytes % (Manual) Monocytes % (Manual) Seg Neutrophils # Seg Neutrophils # Man Lymphocytes # (Manual) Monocytes # (Manual) D-Dimer Heparin Anti-Xa Level ABG pH POC ABG pCO2 POC ABG pO2 ABG pO2 ABG HCO3 ABG O2 Saturation ABG Base Excess ABG Hemoglobin ABG Oxyhemoglobin ABG Sodium ABG Potassium ABG Chloride ABG Glucose VBG pH Oxyhemoglobin Carboxyhemoglobin Sodium Potassium Chloride Carbon Dioxide BUN Creatinine Glucose POC Glucose 150 H 111 H 132 H Lactic Acid Calcium Phosphorus Magnesium Total Bilirubin AST ALT Ammonia Lactate Dehydrogenase Total Creatine Kinase CK-MB (CK-2) Troponin T NT-Pro-B Natriuret Pep Total Protein Albumin Triglycerides TSH Arterial Blood Glucose Arterial Blood Ionized Calcium Urine pH Urine WBC (Auto) Urine Creatinine 10/16/20 10/17/20 10/17/20 23:38 03:32 03:32 WBC RBC Hgb Hct RDW Lymph % (Auto) [place] % (Auto) Lymph # (Auto) [place] # (Auto) Seg Neutrophils % Lymphocytes % (Manual) Monocytes % (Manual) Seg Neutrophils # Seg Neutrophils # Man Lymphocytes # (Manual) Monocytes # (Manual) D-Dimer Heparin Anti-Xa Level ABG pH POC ABG pCO2 POC ABG pO2 ABG pO2 ABG HCO3 ABG O2 Saturation ABG Base Excess ABG Hemoglobin ABG Oxyhemoglobin ABG Sodium ABG Potassium ABG Chloride ABG Glucose VBG pH Oxyhemoglobin Carboxyhemoglobin Sodium 146 H Potassium Chloride Carbon Dioxide 32 H BUN 57 H Creatinine 2.4 H D Glucose 124 H POC Glucose 117 H Lactic Acid Calcium Phosphorus 5.20 H D Magnesium Total Bilirubin AST ALT Ammonia Lactate Dehydrogenase Total Creatine Kinase CK-MB (CK-2) Troponin T NT-Pro-B Natriuret Pep Total Protein Albumin Triglycerides TSH Arterial Blood Glucose Arterial Blood Ionized Calcium Urine pH Urine WBC (Auto) Urine Creatinine 10/17/20 10/17/20 10/18/20 05:10 17:33 00:13 WBC RBC Hgb Hct RDW Lymph % (Auto) [place] % (Auto) Lymph # (Auto) [place] # (Auto) Seg Neutrophils % Lymphocytes % (Manual) Monocytes % (Manual) Seg Neutrophils # Seg Neutrophils # Man Lymphocytes # (Manual) Monocytes # (Manual) D-Dimer Heparin Anti-Xa Level ABG pH POC ABG pCO2 POC ABG pO2 ABG pO2 ABG HCO3 ABG O2 Saturation ABG Base Excess ABG Hemoglobin ABG Oxyhemoglobin ABG Sodium ABG Potassium ABG Chloride ABG Glucose VBG pH Oxyhemoglobin Carboxyhemoglobin Sodium Potassium Chloride Carbon Dioxide BUN Creatinine Glucose POC Glucose 122 H 121 H 23 L Lactic Acid Calcium Phosphorus Magnesium Total Bilirubin AST ALT Ammonia Lactate Dehydrogenase Total Creatine Kinase CK-MB (CK-2) Troponin T NT-Pro-B Natriuret Pep Total Protein Albumin Triglycerides TSH Arterial Blood Glucose Arterial Blood Ionized Calcium Urine pH Urine WBC (Auto) Urine Creatinine 10/18/20 10/18/20 10/18/20 00:16 03:27 03:27 WBC RBC Hgb 11.7 L Hct RDW Lymph % (Auto) [place] % (Auto) Lymph # (Auto) [place] # (Auto) Seg Neutrophils % Lymphocytes % (Manual) Monocytes % (Manual) Seg Neutrophils # Seg Neutrophils # Man Lymphocytes # (Manual) Monocytes # (Manual) D-Dimer Heparin Anti-Xa Level ABG pH POC ABG pCO2 POC ABG pO2 ABG pO2 ABG HCO3 ABG O2 Saturation ABG Base Excess ABG Hemoglobin ABG Oxyhemoglobin ABG Sodium ABG Potassium ABG Chloride ABG Glucose VBG pH Oxyhemoglobin Carboxyhemoglobin Sodium Potassium Chloride 97.6 L Carbon Dioxide BUN 90 H Creatinine 3.3 H Glucose 146 H POC Glucose 134 H Lactic Acid Calcium Phosphorus Magnesium Total Bilirubin 1.70 H AST ALT Ammonia Lactate Dehydrogenase Total Creatine Kinase CK-MB (CK-2) Troponin T NT-Pro-B Natriuret Pep Total Protein Albumin 3.1 L Triglycerides TSH Arterial Blood Glucose Arterial Blood Ionized Calcium Urine pH Urine WBC (Auto) Urine Creatinine 10/18/20 10/18/20 10/18/20 05:09 11:19 17:15 WBC RBC Hgb Hct RDW Lymph % (Auto) [place] % (Auto) Lymph # (Auto) [place] # (Auto) Seg Neutrophils % Lymphocytes % (Manual) Monocytes % (Manual) Seg Neutrophils # Seg Neutrophils # Man Lymphocytes # (Manual) Monocytes # (Manual) D-Dimer Heparin Anti-Xa Level ABG pH POC ABG pCO2 POC ABG pO2 ABG pO2 ABG HCO3 ABG O2 Saturation ABG Base Excess ABG Hemoglobin ABG Oxyhemoglobin ABG Sodium ABG Potassium ABG Chloride ABG Glucose VBG pH Oxyhemoglobin Carboxyhemoglobin Sodium Potassium Chloride Carbon Dioxide BUN Creatinine Glucose POC Glucose 144 H 145 H 151 H Lactic Acid Calcium Phosphorus Magnesium Total Bilirubin AST ALT Ammonia Lactate Dehydrogenase Total Creatine Kinase CK-MB (CK-2) Troponin T NT-Pro-B Natriuret Pep Total Protein Albumin Triglycerides TSH Arterial Blood Glucose Arterial Blood Ionized Calcium Urine pH Urine WBC (Auto) Urine Creatinine 10/18/20 10/18/20 10/19/20 23:16 Unknown 04:55 WBC RBC Hgb Hct RDW Lymph % (Auto) [place] % (Auto) Lymph # (Auto) [place] # (Auto) Seg Neutrophils % Lymphocytes % (Manual) Monocytes % (Manual) Seg Neutrophils # Seg Neutrophils # Man Lymphocytes # (Manual) Monocytes # (Manual) D-Dimer Heparin Anti-Xa Level ABG pH POC ABG pCO2 POC ABG pO2 ABG pO2 ABG HCO3 ABG O2 Saturation ABG Base Excess ABG Hemoglobin ABG Oxyhemoglobin ABG Sodium ABG Potassium ABG Chloride ABG Glucose VBG pH Oxyhemoglobin Carboxyhemoglobin Sodium Potassium Chloride Carbon Dioxide BUN 104 H Creatinine 3.1 H Glucose 139 H POC Glucose 123 H Lactic Acid Calcium Phosphorus Magnesium Total Bilirubin AST ALT Ammonia Lactate Dehydrogenase Total Creatine Kinase CK-MB (CK-2) Troponin T NT-Pro-B Natriuret Pep Total Protein Albumin Triglycerides TSH Arterial Blood Glucose Arterial Blood Ionized Calcium Urine pH Urine WBC (Auto) 115.0 H Urine Creatinine 10/19/20 10/19/20 10/19/20 04:55 11:35 13:14 WBC 15.1 H RBC Hgb 11.1 L Hct 34.4 L RDW Lymph % (Auto) 4.2 L [place] % (Auto) 11.9 H Lymph # (Auto) 0.6 L [place] # (Auto) 1.8 H Seg Neutrophils % 82.0 H Lymphocytes % (Manual) Monocytes % (Manual) Seg Neutrophils # 12.4 H Seg Neutrophils # Man Lymphocytes # (Manual) Monocytes # (Manual) D-Dimer Heparin Anti-Xa Level ABG pH POC ABG pCO2 POC ABG pO2 ABG pO2 ABG HCO3 ABG O2 Saturation ABG Base Excess ABG Hemoglobin ABG Oxyhemoglobin ABG Sodium ABG Potassium ABG Chloride ABG Glucose VBG pH Oxyhemoglobin Carboxyhemoglobin Sodium Potassium Chloride Carbon Dioxide BUN Creatinine Glucose POC Glucose 136 H Lactic Acid Calcium Phosphorus Magnesium Total Bilirubin AST ALT Ammonia Lactate Dehydrogenase Total Creatine Kinase CK-MB (CK-2) Troponin T NT-Pro-B Natriuret Pep Total Protein Albumin Triglycerides TSH Arterial Blood Glucose Arterial Blood Ionized Calcium Urine pH Urine WBC (Auto) Urine Creatinine 93.7 H 10/19/20 10/19/20 10/20/20 17:53 23:39 04:30 WBC RBC Hgb Hct RDW Lymph % (Auto) [place] % (Auto) Lymph # (Auto) [place] # (Auto) Seg Neutrophils % Lymphocytes % (Manual) Monocytes % (Manual) Seg Neutrophils # Seg Neutrophils # Man Lymphocytes # (Manual) Monocytes # (Manual) D-Dimer Heparin Anti-Xa Level ABG pH POC ABG pCO2 POC ABG pO2 ABG pO2 ABG HCO3 ABG O2 Saturation ABG Base Excess ABG Hemoglobin ABG Oxyhemoglobin ABG Sodium ABG Potassium ABG Chloride ABG Glucose VBG pH Oxyhemoglobin Carboxyhemoglobin Sodium Potassium Chloride Carbon Dioxide BUN 104 H Creatinine 2.8 H Glucose 151 H POC Glucose 137 H 133 H Lactic Acid Calcium Phosphorus Magnesium Total Bilirubin AST ALT Ammonia Lactate Dehydrogenase Total Creatine Kinase CK-MB (CK-2) Troponin T NT-Pro-B Natriuret Pep Total Protein Albumin Triglycerides TSH Arterial Blood Glucose Arterial Blood Ionized Calcium Urine pH Urine WBC (Auto) Urine Creatinine 10/20/20 10/20/20 10/20/20 04:30 05:38 11:34 WBC 17.9 H RBC Hgb 11.7 L Hct RDW Lymph % (Auto) [place] % (Auto) Lymph # (Auto) [place] # (Auto) Seg Neutrophils % Lymphocytes % (Manual) Monocytes % (Manual) Seg Neutrophils # Seg Neutrophils # Man Lymphocytes # (Manual) Monocytes # (Manual) D-Dimer Heparin Anti-Xa Level ABG pH POC ABG pCO2 POC ABG pO2 ABG pO2 ABG HCO3 ABG O2 Saturation ABG Base Excess ABG Hemoglobin ABG Oxyhemoglobin ABG Sodium ABG Potassium ABG Chloride ABG Glucose VBG pH Oxyhemoglobin Carboxyhemoglobin Sodium Potassium Chloride Carbon Dioxide BUN Creatinine Glucose POC Glucose 164 H 148 H Lactic Acid Calcium Phosphorus Magnesium Total Bilirubin AST ALT Ammonia Lactate Dehydrogenase Total Creatine Kinase CK-MB (CK-2) Troponin T NT-Pro-B Natriuret Pep Total Protein Albumin Triglycerides TSH Arterial Blood Glucose Arterial Blood Ionized Calcium Urine pH Urine WBC (Auto) Urine Creatinine 10/20/20 10/20/20 10/20/20 17:40 20:20 23:29 WBC RBC Hgb Hct RDW Lymph % (Auto) [place] % (Auto) Lymph # (Auto) [place] # (Auto) Seg Neutrophils % Lymphocytes % (Manual) Monocytes % (Manual) Seg Neutrophils # Seg Neutrophils # Man Lymphocytes # (Manual) Monocytes # (Manual) D-Dimer Heparin Anti-Xa Level ABG pH 7.292 L POC ABG pCO2 68.5 H POC ABG pO2 ABG pO2 ABG HCO3 ABG O2 Saturation ABG Base Excess ABG Hemoglobin 11.6 L ABG Oxyhemoglobin ABG Sodium ABG Potassium ABG Chloride ABG Glucose 145 H VBG pH Oxyhemoglobin Carboxyhemoglobin Sodium Potassium Chloride Carbon Dioxide BUN Creatinine Glucose POC Glucose 130 H 136 H Lactic Acid Calcium Phosphorus Magnesium Total Bilirubin AST ALT Ammonia Lactate Dehydrogenase Total Creatine Kinase CK-MB (CK-2) Troponin T NT-Pro-B Natriuret Pep Total Protein Albumin Triglycerides TSH Arterial Blood Glucose 145 H Arterial Blood Ionized Calcium Urine pH Urine WBC (Auto) Urine Creatinine 10/21/20 10/21/20 10/21/20 04:20 06:26 06:30 WBC RBC Hgb Hct RDW Lymph % (Auto) [place] % (Auto) Lymph # (Auto) [place] # (Auto) Seg Neutrophils % Lymphocytes % (Manual) Monocytes % (Manual) Seg Neutrophils # Seg Neutrophils # Man Lymphocytes # (Manual) Monocytes # (Manual) D-Dimer Heparin Anti-Xa Level ABG pH 7.262 L POC ABG pCO2 72.4 H POC ABG pO2 81.6 L ABG pO2 ABG HCO3 ABG O2 Saturation ABG Base Excess ABG Hemoglobin 11.6 L ABG Oxyhemoglobin ABG Sodium ABG Potassium ABG Chloride ABG Glucose 140 H VBG pH Oxyhemoglobin Carboxyhemoglobin Sodium Potassium Chloride Carbon Dioxide 33 H BUN 104 H Creatinine 2.9 H Glucose 153 H POC Glucose 128 H Lactic Acid Calcium Phosphorus Magnesium Total Bilirubin AST ALT Ammonia Lactate Dehydrogenase Total Creatine Kinase CK-MB (CK-2) Troponin T NT-Pro-B Natriuret Pep Total Protein Albumin Triglycerides TSH Arterial Blood Glucose 140 H Arterial Blood Ionized Calcium Urine pH Urine WBC (Auto) Urine Creatinine 10/21/20 10/21/20 10/21/20 06:30 11:24 17:21 WBC 13.3 H RBC Hgb 10.7 L Hct 32.7 L RDW Lymph % (Auto) [place] % (Auto) Lymph # (Auto) [place] # (Auto) Seg Neutrophils % Lymphocytes % (Manual) Monocytes % (Manual) Seg Neutrophils # Seg Neutrophils # Man Lymphocytes # (Manual) Monocytes # (Manual) D-Dimer Heparin Anti-Xa Level ABG pH POC ABG pCO2 POC ABG pO2 ABG pO2 ABG HCO3 ABG O2 Saturation ABG Base Excess ABG Hemoglobin ABG Oxyhemoglobin ABG Sodium ABG Potassium ABG Chloride ABG Glucose VBG pH Oxyhemoglobin Carboxyhemoglobin Sodium Potassium Chloride Carbon Dioxide BUN Creatinine Glucose POC Glucose 178 H 138 H Lactic Acid Calcium Phosphorus Magnesium Total Bilirubin AST ALT Ammonia Lactate Dehydrogenase Total Creatine Kinase CK-MB (CK-2) Troponin T NT-Pro-B Natriuret Pep Total Protein Albumin Triglycerides TSH Arterial Blood Glucose Arterial Blood Ionized Calcium Urine pH Urine WBC (Auto) Urine Creatinine 10/22/20 10/22/20 10/22/20 00:05 04:30 06:15 WBC RBC Hgb Hct RDW Lymph % (Auto) [place] % (Auto) Lymph # (Auto) [place] # (Auto) Seg Neutrophils % Lymphocytes % (Manual) Monocytes % (Manual) Seg Neutrophils # Seg Neutrophils # Man Lymphocytes # (Manual) Monocytes # (Manual) D-Dimer Heparin Anti-Xa Level ABG pH 7.225 L POC ABG pCO2 76.6 H POC ABG pO2 ABG pO2 ABG HCO3 ABG O2 Saturation ABG Base Excess ABG Hemoglobin 11.1 L ABG Oxyhemoglobin ABG Sodium ABG Potassium ABG Chloride ABG Glucose 151 H VBG pH Oxyhemoglobin Carboxyhemoglobin Sodium Potassium Chloride Carbon Dioxide 32 H BUN 103 H Creatinine 2.7 H Glucose 151 H POC Glucose 135 H Lactic Acid Calcium Phosphorus Magnesium Total Bilirubin AST ALT Ammonia Lactate Dehydrogenase Total Creatine Kinase CK-MB (CK-2) Troponin T NT-Pro-B Natriuret Pep Total Protein Albumin Triglycerides TSH Arterial Blood Glucose 151 H Arterial Blood Ionized Calcium Urine pH Urine WBC (Auto) Urine Creatinine 10/22/20 10/22/20 10/22/20 06:18 11:34 11:44 WBC RBC Hgb Hct RDW Lymph % (Auto) [place] % (Auto) Lymph # (Auto) [place] # (Auto) Seg Neutrophils % Lymphocytes % (Manual) Monocytes % (Manual) Seg Neutrophils # Seg Neutrophils # Man Lymphocytes # (Manual) Monocytes # (Manual) D-Dimer Heparin Anti-Xa Level ABG pH 7.278 L POC ABG pCO2 67.8 H POC ABG pO2 ABG pO2 ABG HCO3 ABG O2 Saturation ABG Base Excess ABG Hemoglobin 10.2 L ABG Oxyhemoglobin ABG Sodium ABG Potassium ABG Chloride ABG Glucose 172 H VBG pH Oxyhemoglobin Carboxyhemoglobin Sodium Potassium Chloride Carbon Dioxide BUN Creatinine Glucose POC Glucose 137 H 147 H Lactic Acid Calcium Phosphorus Magnesium Total Bilirubin AST ALT Ammonia Lactate Dehydrogenase Total Creatine Kinase CK-MB (CK-2) Troponin T NT-Pro-B Natriuret Pep Total Protein Albumin Triglycerides TSH Arterial Blood Glucose 172 H Arterial Blood Ionized Calcium Urine pH Urine WBC (Auto) Urine Creatinine 10/22/20 10/22/20 10/23/20 17:40 23:55 05:11 WBC RBC Hgb Hct RDW Lymph % (Auto) [place] % (Auto) Lymph # (Auto) [place] # (Auto) Seg Neutrophils % Lymphocytes % (Manual) Monocytes % (Manual) Seg Neutrophils # Seg Neutrophils # Man Lymphocytes # (Manual) Monocytes # (Manual) D-Dimer Heparin Anti-Xa Level ABG pH POC ABG pCO2 63.6 H POC ABG pO2 81.2 L ABG pO2 ABG HCO3 ABG O2 Saturation ABG Base Excess ABG Hemoglobin 10.6 L ABG Oxyhemoglobin ABG Sodium ABG Potassium ABG Chloride 109.0 H ABG Glucose 149 H VBG pH Oxyhemoglobin Carboxyhemoglobin Sodium Potassium Chloride Carbon Dioxide BUN Creatinine Glucose POC Glucose 141 H 139 H Lactic Acid Calcium Phosphorus Magnesium Total Bilirubin AST ALT Ammonia Lactate Dehydrogenase Total Creatine Kinase CK-MB (CK-2) Troponin T NT-Pro-B Natriuret Pep Total Protein Albumin Triglycerides TSH Arterial Blood Glucose 149 H Arterial Blood Ionized Calcium Urine pH Urine WBC (Auto) Urine Creatinine 10/23/20 10/23/20 10/23/20 05:39 06:00 11:32 WBC RBC Hgb Hct RDW Lymph % (Auto) [place] % (Auto) Lymph # (Auto) [place] # (Auto) Seg Neutrophils % Lymphocytes % (Manual) Monocytes % (Manual) Seg Neutrophils # Seg Neutrophils # Man Lymphocytes # (Manual) Monocytes # (Manual) D-Dimer Heparin Anti-Xa Level ABG pH POC ABG pCO2 POC ABG pO2 ABG pO2 ABG HCO3 ABG O2 Saturation ABG Base Excess ABG Hemoglobin ABG Oxyhemoglobin ABG Sodium ABG Potassium ABG Chloride ABG Glucose VBG pH Oxyhemoglobin Carboxyhemoglobin Sodium 146 H Potassium Chloride Carbon Dioxide 35 H BUN 92 H Creatinine 2.0 H Glucose 144 H POC Glucose 139 H 176 H Lactic Acid Calcium Phosphorus Magnesium Total Bilirubin AST ALT Ammonia Lactate Dehydrogenase Total Creatine Kinase CK-MB (CK-2) Troponin T NT-Pro-B Natriuret Pep Total Protein Albumin Triglycerides TSH Arterial Blood Glucose Arterial Blood Ionized Calcium Urine pH Urine WBC (Auto) Urine Creatinine 10/23/20 10/23/20 10/24/20 11:34 17:55 05:33 WBC RBC Hgb Hct RDW Lymph % (Auto) [place] % (Auto) Lymph # (Auto) [place] # (Auto) Seg Neutrophils % Lymphocytes % (Manual) Monocytes % (Manual) Seg Neutrophils # Seg Neutrophils # Man Lymphocytes # (Manual) Monocytes # (Manual) D-Dimer Heparin Anti-Xa Level ABG pH POC ABG pCO2 POC ABG pO2 ABG pO2 ABG HCO3 ABG O2 Saturation ABG Base Excess ABG Hemoglobin ABG Oxyhemoglobin ABG Sodium ABG Potassium ABG Chloride ABG Glucose VBG pH Oxyhemoglobin Carboxyhemoglobin Sodium 147 H Potassium Chloride Carbon Dioxide 32 H BUN 76 H Creatinine 1.7 H Glucose 172 H POC Glucose 173 H 135 H Lactic Acid Calcium Phosphorus Magnesium Total Bilirubin AST ALT Ammonia Lactate Dehydrogenase Total Creatine Kinase CK-MB (CK-2) Troponin T NT-Pro-B Natriuret Pep Total Protein Albumin Triglycerides TSH Arterial Blood Glucose Arterial Blood Ionized Calcium Urine pH Urine WBC (Auto) Urine Creatinine 10/24/20 10/24/20 10/24/20 05:41 12:09 18:09 WBC RBC Hgb Hct RDW Lymph % (Auto) [place] % (Auto) Lymph # (Auto) [place] # (Auto) Seg Neutrophils % Lymphocytes % (Manual) Monocytes % (Manual) Seg Neutrophils # Seg Neutrophils # Man Lymphocytes # (Manual) Monocytes # (Manual) D-Dimer Heparin Anti-Xa Level ABG pH POC ABG pCO2 POC ABG pO2 ABG pO2 ABG HCO3 ABG O2 Saturation ABG Base Excess ABG Hemoglobin ABG Oxyhemoglobin ABG Sodium ABG Potassium ABG Chloride ABG Glucose VBG pH Oxyhemoglobin Carboxyhemoglobin Sodium Potassium Chloride Carbon Dioxide BUN Creatinine Glucose POC Glucose 156 H 154 H 132 H Lactic Acid Calcium Phosphorus Magnesium Total Bilirubin AST ALT Ammonia Lactate Dehydrogenase Total Creatine Kinase CK-MB (CK-2) Troponin T NT-Pro-B Natriuret Pep Total Protein Albumin Triglycerides TSH Arterial Blood Glucose Arterial Blood Ionized Calcium Urine pH Urine WBC (Auto) Urine Creatinine 10/24/20 10/25/20 10/25/20 23:39 05:29 08:55 WBC RBC Hgb Hct RDW Lymph % (Auto) [place] % (Auto) Lymph # (Auto) [place] # (Auto) Seg Neutrophils % Lymphocytes % (Manual) Monocytes % (Manual) Seg Neutrophils # Seg Neutrophils # Man Lymphocytes # (Manual) Monocytes # (Manual) D-Dimer Heparin Anti-Xa Level ABG pH POC ABG pCO2 POC ABG pO2 ABG pO2 ABG HCO3 ABG O2 Saturation ABG Base Excess ABG Hemoglobin ABG Oxyhemoglobin ABG Sodium ABG Potassium ABG Chloride ABG Glucose VBG pH Oxyhemoglobin Carboxyhemoglobin Sodium 150 H Potassium Chloride 108.3 H Carbon Dioxide 32 H BUN 57 H Creatinine 1.5 H Glucose 142 H POC Glucose 131 H 142 H Lactic Acid Calcium Phosphorus Magnesium Total Bilirubin AST ALT Ammonia Lactate Dehydrogenase Total Creatine Kinase CK-MB (CK-2) Troponin T NT-Pro-B Natriuret Pep Total Protein Albumin Triglycerides TSH Arterial Blood Glucose Arterial Blood Ionized Calcium Urine pH Urine WBC (Auto) Urine Creatinine 10/25/20 10/25/20 10/25/20 08:55 11:08 18:10 WBC 14.3 H RBC 3.57 L Hgb 10.3 L Hct 31.6 L RDW Lymph % (Auto) [place] % (Auto) Lymph # (Auto) [place] # (Auto) Seg Neutrophils % Lymphocytes % (Manual) Monocytes % (Manual) Seg Neutrophils # Seg Neutrophils # Man Lymphocytes # (Manual) Monocytes # (Manual) D-Dimer Heparin Anti-Xa Level ABG pH POC ABG pCO2 52.3 H POC ABG pO2 ABG pO2 ABG HCO3 ABG O2 Saturation ABG Base Excess ABG Hemoglobin 11.2 L ABG Oxyhemoglobin ABG Sodium ABG Potassium ABG Chloride 108.0 H ABG Glucose 167 H VBG pH Oxyhemoglobin Carboxyhemoglobin Sodium Potassium Chloride Carbon Dioxide BUN Creatinine Glucose POC Glucose 157 H Lactic Acid Calcium Phosphorus Magnesium Total Bilirubin AST ALT Ammonia Lactate Dehydrogenase Total Creatine Kinase CK-MB (CK-2) Troponin T NT-Pro-B Natriuret Pep Total Protein Albumin Triglycerides TSH Arterial Blood Glucose 167 H Arterial Blood Ionized Calcium Urine pH Urine WBC (Auto) Urine Creatinine 10/25/20 10/26/20 10/26/20 18:20 00:20 06:08 WBC RBC Hgb Hct RDW Lymph % (Auto) [place] % (Auto) Lymph # (Auto) [place] # (Auto) Seg Neutrophils % Lymphocytes % (Manual) Monocytes % (Manual) Seg Neutrophils # Seg Neutrophils # Man Lymphocytes # (Manual) Monocytes # (Manual) D-Dimer Heparin Anti-Xa Level ABG pH POC ABG pCO2 POC ABG pO2 ABG pO2 ABG HCO3 ABG O2 Saturation ABG Base Excess ABG Hemoglobin ABG Oxyhemoglobin ABG Sodium ABG Potassium ABG Chloride ABG Glucose VBG pH Oxyhemoglobin Carboxyhemoglobin Sodium Potassium Chloride Carbon Dioxide BUN Creatinine Glucose POC Glucose 127 H 108 H 119 H Lactic Acid Calcium Phosphorus Magnesium Total Bilirubin AST ALT Ammonia Lactate Dehydrogenase Total Creatine Kinase CK-MB (CK-2) Troponin T NT-Pro-B Natriuret Pep Total Protein Albumin Triglycerides TSH Arterial Blood Glucose Arterial Blood Ionized Calcium Urine pH Urine WBC (Auto) Urine Creatinine 10/26/20 10/26/20 10/26/20 07:38 07:38 11:28 WBC 13.5 H RBC 3.37 L Hgb 9.8 L Hct 30.0 L RDW Lymph % (Auto) [place] % (Auto) Lymph # (Auto) [place] # (Auto) Seg Neutrophils % Lymphocytes % (Manual) Monocytes % (Manual) Seg Neutrophils # Seg Neutrophils # Man Lymphocytes # (Manual) Monocytes # (Manual) D-Dimer Heparin Anti-Xa Level ABG pH POC ABG pCO2 POC ABG pO2 ABG pO2 ABG HCO3 ABG O2 Saturation ABG Base Excess ABG Hemoglobin ABG Oxyhemoglobin ABG Sodium ABG Potassium ABG Chloride ABG Glucose VBG pH Oxyhemoglobin Carboxyhemoglobin Sodium 149 H Potassium Chloride 107.6 H Carbon Dioxide 34 H BUN 49 H Creatinine 1.4 H Glucose 137 H POC Glucose 148 H Lactic Acid Calcium Phosphorus Magnesium Total Bilirubin AST ALT Ammonia Lactate Dehydrogenase Total Creatine Kinase CK-MB (CK-2) Troponin T NT-Pro-B Natriuret Pep Total Protein Albumin Triglycerides TSH Arterial Blood Glucose Arterial Blood Ionized Calcium Urine pH Urine WBC (Auto) Urine Creatinine 10/26/20 10/26/20 10/27/20 18:17 23:37 05:08 WBC RBC Hgb Hct RDW Lymph % (Auto) [place] % (Auto) Lymph # (Auto) [place] # (Auto) Seg Neutrophils % Lymphocytes % (Manual) Monocytes % (Manual) Seg Neutrophils # Seg Neutrophils # Man Lymphocytes # (Manual) Monocytes # (Manual) D-Dimer Heparin Anti-Xa Level ABG pH POC ABG pCO2 POC ABG pO2 ABG pO2 ABG HCO3 ABG O2 Saturation ABG Base Excess ABG Hemoglobin ABG Oxyhemoglobin ABG Sodium ABG Potassium ABG Chloride ABG Glucose VBG pH Oxyhemoglobin Carboxyhemoglobin Sodium Potassium Chloride Carbon Dioxide BUN Creatinine Glucose POC Glucose 121 H 152 H 120 H Lactic Acid Calcium Phosphorus Magnesium Total Bilirubin AST ALT Ammonia Lactate Dehydrogenase Total Creatine Kinase CK-MB (CK-2) Troponin T NT-Pro-B Natriuret Pep Total Protein Albumin Triglycerides TSH Arterial Blood Glucose Arterial Blood Ionized Calcium Urine pH Urine WBC (Auto) Urine Creatinine 10/27/20 10/27/20 10/27/20 07:30 07:30 11:59 WBC RBC 3.46 L Hgb 10.2 L Hct 30.9 L RDW Lymph % (Auto) [place] % (Auto) Lymph # (Auto) [place] # (Auto) Seg Neutrophils % Lymphocytes % (Manual) Monocytes % (Manual) Seg Neutrophils # Seg Neutrophils # Man Lymphocytes # (Manual) Monocytes # (Manual) D-Dimer Heparin Anti-Xa Level ABG pH POC ABG pCO2 POC ABG pO2 ABG pO2 ABG HCO3 ABG O2 Saturation ABG Base Excess ABG Hemoglobin ABG Oxyhemoglobin ABG Sodium ABG Potassium ABG Chloride ABG Glucose VBG pH Oxyhemoglobin Carboxyhemoglobin Sodium 146 H Potassium Chloride Carbon Dioxide 34 H BUN 45 H Creatinine Glucose 131 H POC Glucose 143 H Lactic Acid Calcium Phosphorus Magnesium Total Bilirubin AST ALT Ammonia Lactate Dehydrogenase Total Creatine Kinase CK-MB (CK-2) Troponin T NT-Pro-B Natriuret Pep Total Protein Albumin Triglycerides TSH Arterial Blood Glucose Arterial Blood Ionized Calcium Urine pH Urine WBC (Auto) Urine Creatinine 10/27/20 10/27/20 10/28/20 18:52 23:03 07:00 WBC RBC Hgb Hct RDW Lymph % (Auto) [place] % (Auto) Lymph # (Auto) [place] # (Auto) Seg Neutrophils % Lymphocytes % (Manual) Monocytes % (Manual) Seg Neutrophils # Seg Neutrophils # Man Lymphocytes # (Manual) Monocytes # (Manual) D-Dimer Heparin Anti-Xa Level ABG pH POC ABG pCO2 POC ABG pO2 ABG pO2 ABG HCO3 ABG O2 Saturation ABG Base Excess ABG Hemoglobin ABG Oxyhemoglobin ABG Sodium ABG Potassium ABG Chloride ABG Glucose VBG pH Oxyhemoglobin Carboxyhemoglobin Sodium 147 H Potassium Chloride Carbon Dioxide 35 H BUN 39 H Creatinine Glucose 133 H POC Glucose 119 H 158 H Lactic Acid Calcium Phosphorus Magnesium Total Bilirubin AST ALT Ammonia Lactate Dehydrogenase Total Creatine Kinase CK-MB (CK-2) Troponin T NT-Pro-B Natriuret Pep Total Protein Albumin Triglycerides TSH Arterial Blood Glucose Arterial Blood Ionized Calcium Urine pH Urine WBC (Auto) Urine Creatinine 10/28/20 10/28/20 09:00 11:47 WBC 12.5 H RBC 3.58 L Hgb 10.5 L Hct 32.1 L RDW Lymph % (Auto) [place] % (Auto) Lymph # (Auto) [place] # (Auto) Seg Neutrophils % Lymphocytes % (Manual) Monocytes % (Manual) Seg Neutrophils # Seg Neutrophils # Man Lymphocytes # (Manual) Monocytes # (Manual) D-Dimer Heparin Anti-Xa Level ABG pH POC ABG pCO2 POC ABG pO2 ABG pO2 ABG HCO3 ABG O2 Saturation ABG Base Excess ABG Hemoglobin ABG Oxyhemoglobin ABG Sodium ABG Potassium ABG Chloride ABG Glucose VBG pH Oxyhemoglobin Carboxyhemoglobin Sodium Potassium Chloride Carbon Dioxide BUN Creatinine Glucose POC Glucose 129 H Lactic Acid Calcium Phosphorus Magnesium Total Bilirubin AST ALT Ammonia Lactate Dehydrogenase Total Creatine Kinase CK-MB (CK-2) Troponin T NT-Pro-B Natriuret Pep Total Protein Albumin Triglycerides TSH Arterial Blood Glucose Arterial Blood Ionized Calcium Urine pH Urine WBC (Auto) Urine Creatinine Allied health notes reviewed: nursing
[2020-10-29 04:58] LABS: Hematocrit 30.7 % (35.5-45.6); Hemoglobin 10.5 gm/dl (11.8-15.2); Mean Corpuscular HGB Conc 34 % (32-34); Mean Corpuscular Volume 88 fl (84-94); Platelet Count 316 K/mm3 (140-440); Red Blood Count 3.47 M/mm3 (3.65-5.03); Red Cell Distribution Width 15.4 % (13.2-15.2)
[2020-10-29 05:15] LABS: BUN/Creatinine Ratio 28; Blood Urea Nitrogen 34 mg/dL (9-20); Calcium 9.1 mg/dL (8.4-10.2); Hemolysis Index 1
[2020-10-29] MEDS: METOPROLOL TARTRATE 50 MG TAB PO SCH ×3 (09:30→19:19)
[2020-10-29] MEDS: SCOPOLAMINE TRANSDERMAL PATCH 72 HR TD SCH (10:15)
[2020-10-29] MEDS: DOCUSATE SODIUM 100 MG/10 ML ORAL LIQD PO SCH ×2 (10:15→21:02)
[2020-10-29] MEDS: GLYCOPYRROLATE 1 MG TAB PO SCH ×3 (10:16→19:19)
[2020-10-29] MEDS: amLODIPine 10 MG TAB PO SCH (10:16)
[2020-10-29] MEDS: POLYETHYLENE GLYCOL 3350 17 GM POWDER PO SCH (10:16)
[2020-10-29] MEDS: LANSOPRAZOLE 30 MG SOLUTAB FEEDTUBE SCH ×2 (10:18→21:02)
[2020-10-29] MEDS: HEPARIN 5,000 UNIT/1 ML VIAL SUB-Q SCH ×2 (10:18→21:02)
[2020-10-29] MEDS: LINEZOLID 600 MG/300 ML BAG IV SCH (10:19)
--- NOTE | 2020-10-29 12:22 | Progress Note ---
Assessment and Plan This is a 55-year-old male with hypertension, asthma, obesity who was admitted on 10/10 after cardiac arrest x2, sepsis, right-sided pneumonia, NSTEMI type II, acute heart failure, acute hypoxic respiratory failure, acute kidney injury and anoxic brain injury. Sepsis s/p multiple Cardiac Arrests Right-sided pneumonia MRSA in tracheal aspirate NSTEMI type II Acute heart failure Hypernatremia Afib/Alutter Leukocytosis Hyponatremia Acute hypoxic respiratory failure Acute kidney injury Transaminitis HTN Obesity -Infectious disease, CCM, GI, nephrology, cardiology, surgery consulted, appreciate recommendations -Antibiotic therapy -10/18 recultured (blood/sputum/nasal discharge and urinalysis), tracheal aspirate with MRSA -Linezolid -Continue antihypertensive regimen (changed to p.o.), titrate as needed -s/p IV amiodarone for A. fib/a flutter now on p.o. beta-shital -Trend CBC, BMP, LFT -Continue mechanical ventilation, wean as tolerated, VAP bundle -Avoid nephrotoxic medications, strict intake and output, renal ultrasound shows no obstruction -10/10 echocardiogram shows left internal systolic function normal, moderate concentric left ventricle hypertrophy, mild to side diastolic dysfunction, LVEF 55 to 60% with no pericardial effusion -Bilateral Doppler ultrasound negative for DVT/SVT which shows bilateral popliteal cysts -MRI Brain shows restricted diffusion and increased T2 signal cerebral cortex which can be seen in the setting of anoxic brain injury and/ or status epilepticus. -Repeat EEG shows significant generalized slowing compatible with to moderate severe diffuse neuropathy recently compatible with anoxic/ischemic encephalopathy -D5W at 50ml/hr x 1 liter GI/DVT prophylaxis: SCDs to bilateral lower extremities while in bed, PPI, Heparin subq Dispo: ICU/ possible LTACH The high probability of a clinically significant, sudden or life threatening deterioration of the [multi] system(s) required my full and direct attention, intervention and personal management. The aggregate critical care time was [35] minutes. This time is in addition to time spent performing reported procedures but includes the following: [x] Data Review and interpretation [x] Patient assessment and monitoring of vital signs [x] Documentation [x] Medication orders and management Brief History This is a 55-year-old male with hypertension, asthma, obesity in the emergency by presented to the emergency department on 10/10 after receiving a Covid vaccine being found unresponsive in his car in the emergency room bay with no pulse and ACLS protocol was initiated from his car to emergency room #21 where it was continued. Patient was intubated after ROSC was achieved and a central line was placed and the patient was initiated on pressors. In the emergency room patient seems to have seizure-like activity and then collapsed and was unresponsive with no palpable pulse and ACLS was again initiated patient with achievement of ROSC. Patient again coded with ACLS protocol in the CT room. Upon arrival to the ICU patient again coded and ROSC was achieved and he was placed on epinephrine, Lasix, heparin and sodium bicarbonate drip and sedated with propofol. An NG tube was placed, A-line was placed. Patient was admitted to the hospitalist service with consult to CCM, nephrology, infectious disease and cardiology. 10/11: Patient COVID-19 PCR is pending and he remains on mechanical ventilation, examination on assist control 400/30/12/0.95. Patient is scheduled for an echocardiogram and we will obtain bilateral lower extremity Doppler ultrasound given elevated D-dimer. Patient was supposed to have a CTA chest when he coded yesterday. We will begin trickle feeding. This morning patient was on a heparin drip and was noted to have bloody drainage from his NG tube. Heparin drip was discontinued. 10/12: Patient remains on propofol and Lasix drip at the time my examination and he is on assist control 400/25/12/0.60. Patient is hypokalemic this morning which was repleted. Nephrology discontinued Lasix drip and Diamox. Patient is hypertensive and has been started on hydralazine and beta-shital IV. He has been titrated off his vasopressors since yesterday. Vancomycin discontinued. Patient is currently on cefepime and azithromycin. 10/13: Sedation vacation attempted today and patient was not responsive to verbal or painful stimuli, does not track or focus or follow commands. This morning the patient has some respiratory alkalosis on ABG, hypernatremia and metabolic alkalosis on BMP. His kidney functions has improved slightly. Patient still has leukocytosis and infectious disease was like to continue antibiotic therapy. GI evaluated the patient yesterday and started the patient on PPI does not plan to scope at this time. At the time my examination patient assist-control 400/20/12/0.40 and sedated on propofol at 20. 4/2: GI has recommended a CT abdomen since there is increased output from OG tube and an MRI brain without contrast has been ordered per neurology recommendations. EEG is pending and the patient has been started on Keppra per neurology.. Nutrition has been consulted for initiation of parenteral nutrition. Patient remains sedated with propofol and his hypernatremia, leukocytosis, acute kidney injury and metabolic alkalosis is improving. Patient has hypokalemia today which was repleted. At the time of my examination patient was on assist control 400/14/10/0.40 and CCM has dropped his rate to 12 and PEEP to 8. We have labs ordered for a.m. He was given a clonidine patch given persistent hypertension and he remains on D5 water per nephrology. 10/15: This morning patient was started to have a low-grade fever and he will continue antibiotic therapy per infectious disease. He will remove Tuttle catheter today and place a condom cath. Patient's renal function is worsening with a BUN/creatinine of 57/2.4 today and he has hyperphosphatemia at 5.2. This morning the time my examination patient is sedated on fentanyl and has TPN infusing. He is on assist control 400/12/8/0.35. Per GI we will start trial of tube feedings initiation has been reconsulted for orders. 10/18: Patient was febrile overnight and infectious disease has recultured (blood/sputum/right nostril culture) and sent in urinalysis. Cefepime was extended due to high fever and was started on vancomycin. Tube feeding is at goal and we will discontinue his parenteral nutrition. Patient is unable to obtain his MRI due to increased hypoxia and nasal secretions. He will be started on CPAP trials today. This time I examination patient was sedated on f entanyl and had PPN running at 42. His renal function tests have worsened and now has hyperchloremia. Hypernatremia has resolved. 10/19: Patient's T-max was 100.2 and he was pancultured yesterday, remains on antibiotic therapy and still has copious drainage from his nostrils. Patient still has leukocytosis however his/creatinine improved slightly to 3.1 from 3.3. Patient's urinalysis from yesterday shows pyuria. Patient's tracheal aspirate from yesterday grew Staph aureus. Patient is on cefepime and vancomycin. 10/20: This morning at the time my examination patient was CPAP trial of 04/19 and his T-max was 100.9. Patient sedated on fentanyl at 2 just received IV push fentanyl for tachycardia. Today his creatinine is 2.8 from 3.1 yesterday. Infectious disease has stopped cefepime and vancomycin and started linezolid and MRSA PCR is pending. Today removed his NG tube and replaced it with OG tube. We will keep the patient normal saline at 75 mL's per hour for 3 L. Patient developed A. fib/a flutter overnight and cardiology has increased his Lopressor and IV amiodarone. We requested neurology evaluation today. 10/21: Cardiology we will increase Lopressor to 3 times daily and discontinue his amiodarone drip. Infectious disease would like a sinus CT when feasible however patient did have a moment of desatting earlier this week when we attempted MRI brain. And again yesterday when we attempted a "trial run" with positioning at bedside Patient is on linezolid for 10 days per ID. 10/22/20; patient was seen and evaluated this morning, patient had low-grade fever overnight. Patient is on Lopressor per cardiology recommendation. Patient did not follow commands, no improvement in mental status. Evaluated by neurology yesterday and neurology once MRI or CAT scan but cannot be done because patient desats when he lies flat. Patient is on linezolid per ID recommendation. Continue NG tube feeding. Continue with Keppra. Patient is on assist control with PEEP of 6. Management plan was discussed with his yesterday. 10/23/2020; patient is on Zyvox for positive MRSA from tracheal aspirate and nasal secretion culture. Patient's mentation did not improve and does not follow commands. He was reevaluated by neurology and recommend MRI once patient is able to tolerate. MRI could not be done, CT scan could not be done because the patient could not lie flat. Clinically patient looks like she has anoxic encephalopathy. Patient is on NG tube feeding and on mechanical ventilation. Patient is on Keppra. Management plan was discussed with his . 10/24: This morning the patient is on AC TV 400,R 16, Peep 6 and FiO2 of 30% and sedated on 1mcg of Fentayl. He is hypernatremic and his kidney function tests have slightly improved. RN will attempt to obtain MRI Brain today since the patient was able to tolerate a "trial run" of being flat. [facility] plans to resume CPAP trials once MRI obtained. 10/25: This morning the time of examination patient was on assist control tidal volume 400, rate 16, PEEP 6, FiO2 30% and he is currently on CPAP. His MRI brain finding is consistent with status epilepticus or anoxic brain injury. Patient is EEG pending. No acute overnight events reported. 10/26: Patient has been on a CPAP trial 14/6 which she has been tolerating. Surgery was consulted for trach/PEG. Patient's hypernatremia and hyperchloremia slightly better as well as his kidney functions. He has received cardiac clearance for his trach and PEG. No acute events reported overnight. Discussed with with clinical details by phone. 10/27: At the time my examination patient was on CPAP trial 15/6 and 30% FiO2. Patient's electrolyte abnormalities were improving and sources kidney function. His T-max overnight was 99.3 and he remains on linezolid. No acute events reported overnight. Called and mother in the conference call and updated with clinical details. 10/28: Yesterday patient had a trach and PEG placed bedside during. Patient etelvina ins n.p.o. as he has not been cleared by surgery to resume p.o. intake. Today he has slight leukocytosis which is likely reactive, hyponatremia, metabolic alkalosis however his kidney function continues to improve. No acute events overnight. 10/29: Plan to start TPN today, patient remains on mechanical ventilation with trach tube. Remains comatose without any change in mental status. Called and updated. Hospitalist Physical General appearance: Present: no acute distress, well-nourished, other (Resting comfortably on mechanical ventilation, opens eye but does not track) - EENT Eyes: Present: PERRL, conjunctival injection ENT: clear oral mucosa - Neck Neck: Present: Trach in place - Respiratory Respiratory effort: On mechanical ventilation with trach tube Respiratory: bilateral: diminished - Cardiovascular Rhythm: regular Heart Sounds: Present: S1 & S2. Absent: systolic murmur, diastolic murmur - Extremities Extremities: no ischemia, pulses intact, pulses symmetrical, normal temperature, normal color Peripheral Pulses: within normal limits - Abdominal General gastrointestinal: soft, non-tender, non-distended, normal bowel sounds - Integumentary Integumentary: Present: warm, dry - Psychiatric Psychiatric: other (unresponsive to painful stimuli) - Neurologic Neurologic: other (unresponsive to painful stimuli) Subjective Date of service: 10/29/20 Principal diagnosis: Cardiac arrest; Septic Shock; Ac. hypoxemic & hypercapnic resp failure; MOE Interval history: Patient seen and examined No acute event overnight Vitals noted, discussed with RN Called and updated Objective - Constitutional Vitals: Vital Signs - 12hr 10/29/20 10/29/20 10/29/20 00:30 01:00 01:30 Temperature Pulse Rate 74 73 68 Pulse Rate [ From Monitor] Respiratory 19 21 19 Rate Blood Pressure 208/109 178/94 165/92 O2 Sat by Pulse 97 98 99 Oximetry O2 Sat by Pulse 100 Oximetry [ Assessment] 10/29/20 10/29/20 10/29/20 02:00 02:30 02:59 Temperature Pulse Rate 71 75 86 Pulse Rate [ From Monitor] Respiratory 21 23 Rate Blood Pressure 164/89 169/95 169/95 O2 Sat by Pulse 99 100 99 Oximetry O2 Sat by Pulse Oximetry [ Assessment] 10/29/20 10/29/20 10/29/20 03:00 03:30 04:00 Temperature 100.2 F H Pulse Rate 85 81 81 Pulse Rate [ 86 From Monitor] Respiratory 29 H 23 24 Rate Blood Pressure 164/89 192/108 180/86 O2 Sat by Pulse 99 100 99 Oximetry O2 Sat by Pulse Oximetry [ Assessment] 10/29/20 10/29/20 10/29/20 04:30 05:00 05:30 Temperature Pulse Rate 90 94 H 77 Pulse Rate [ From Monitor] Respiratory 28 H 27 H 21 Rate Blood Pressure 194/109 202/108 202/108 O2 Sat by Pulse 99 98 96 Oximetry O2 Sat by Pulse Oximetry [ Assessment] 10/29/20 10/29/20 10/29/20 06:00 06:30 07:00 Temperature Pulse Rate 70 69 72 Pulse Rate [ From Monitor] Respiratory 17 18 18 Rate Blood Pressure 151/67 147/75 152/78 O2 Sat by Pulse 97 97 99 Oximetry O2 Sat by Pulse Oximetry [ Assessment] 10/29/20 10/29/20 10/29/20 07:30 08:00 08:30 Temperature 98.6 F Pulse Rate 77 87 99 H Pulse Rate [ From Monitor] Respiratory 20 18 26 H Rate Blood Pressure 166/92 172/119 174/120 O2 Sat by Pulse 99 99 98 Oximetry O2 Sat by Pulse Oximetry [ Assessment] 10/29/20 10/29/20 10/29/20 09:00 09:30 09:35 Temperature Pulse Rate 81 72 78 Pulse Rate [ From Monitor] Respiratory 17 17 17 Rate Blood Pressure 174/120 144/74 144/74 O2 Sat by Pulse 97 97 98 Oximetry O2 Sat by Pulse 100 Oximetry [ Assessment] 10/29/20 10/29/20 10/29/20 10:00 10:16 10:30 Temperature Pulse Rate 76 75 74 Pulse Rate [ From Monitor] Respiratory 15 17 Rate Blood Pressure 144/85 147/85 155/84 O2 Sat by Pulse 98 99 Oximetry O2 Sat by Pulse Oximetry [ Assessment] 10/29/20 10/29/20 11:00 11:30 Temperature Pulse Rate 74 73 Pulse Rate [ From Monitor] Respiratory 16 15 Rate Blood Pressure 159/91 141/94 O2 Sat by Pulse 99 99 Oximetry O2 Sat by Pulse Oximetry [ Assessment] - Labs CBC & Chem 7: 10/29/20 04:23 10/29/20 04:23 Labs: Abnormal lab results 10/28/20 10/28/20 10/28/20 Range/Units 11:47 17:15 23:31 WBC (4.5-11.0) K/mm3 RBC (3.65-5.03) M/mm3 Hgb (11.8-15.2) gm/dl Hct (35.5-45.6) % RDW (13.2-15.2) % Carbon Dioxide (22-30) mmol/L BUN (9-20) mg/dL Glucose (75-100) mg/dL POC Glucose 129 H 109 H 138 H (70-105) mg/dL 10/29/20 10/29/20 10/29/20 Range/Units 04:23 04:23 05:21 WBC 13.6 H (4.5-11.0) K/mm3 RBC 3.47 L (3.65-5.03) M/mm3 Hgb 10.5 L (11.8-15.2) gm/dl Hct 30.7 L (35.5-45.6) % RDW 15.4 H (13.2-15.2) % Carbon Dioxide 35 H (22-30) mmol/L BUN 34 H (9-20) mg/dL Glucose 107 H (75-100) mg/dL POC Glucose 115 H (70-105) mg/dL HEART Score - HEART Score EKG: Non-specific Age: 45-65 Troponin: Troponin T 0.125 ng/mL (0.00-0.029) H* D 10/12/20 04:00 Troponin: 1-3x normal limit - Critical Actions Critical Actions: 4-6 pts:12-16.6% risk of adverse cardiac event. Should be admitted
[2020-10-29] MEDS: hydrALAZINE 25 MG TAB PO SCH ×2 (13:26→21:02)
--- NOTE | 2020-10-29 14:39 | Progress Note ---
Assessment and Plan Cardiac arrest x3 with ROSC Severe septic and cardiogenic shock Acute respiratory failure with hypoxemia and hypercarbia Acute pulmonary edema MOE (acute kidney injury) Lactic acidosis, severe metabolic acidosis Bilateral pneumonia, aspiration pneumonia Elevated troponins - enteral nutrition as tolerated - repeat CXR in am - continue contact precautions re: MRSA - complete Zyvox dosing - continue care as below otherwise; - continue daily SAT's and SBT assessment as tolerated - de-escalate empiric anti-infective's per ID rec's (on Zyvox) - follow clinically re: fevers / WBC - Monitor hemodynamics closely - wean supplemental oxygen for target O2 sat's > 92% acutely - VAP bundle addressed - continue lung protective strategies - bronchodilators with pulmonary hygiene per RT - wean per pulmonary driven protocols otherwise - Monitor urine output closely - bicarbonate infusion - avoid nephrotoxins, renally dose all medications - continue to avoid benzodiazepine's, reduce the possibility of delirium - continue Scopolamine for secretion control - continue wound care per RN/WCN - prn analgesia per CPOT score - Maintenance of sleep-wake cycle, avoid delirium - continue enteral nutritional support at goal rate as tolerated - G.I. & VTE prophylaxis - PT/OT/ROM exercises - continue mobility protocols for pressure ulcer prophylaxis - Monitor hemodynamics closely - continue other care per attending / other consultants - discharge planning ongoing concurrently .... Re-evaluate in am & prn CONDITION: CRITICAL PROGNOSIS: GUARDED CODE STATUS: FULL CODE The high probability of a clinically significant, sudden or life-threatening deterioration of the [respiratory, cardiovascular & neurologic] system(s) required my full and direct attention, intervention and personal management. The aggregate critical care time was [32] minutes without overlap. Time includes spent on; [x] Data Review and interpretation [x] Patient assessment and monitoring of vital signs [x] Documentation [x] Medication orders and management Subjective Date of service: 10/29/20 Principal diagnosis: Cardiac arrest; Septic Shock; Ac. hypoxemic & hypercapnic resp failure; MOE Interval history: Patient is seen today for: Cardiac arrest with ROSC; Severe septic and cardiogenic shock; Acute respiratory failure with hypoxemia and hypercarbia; Acute pulmonary edema; MOE; Lactic acidosis; severe metabolic acidosis; Bilateral pneumonia; aspiration pneumonia; Elevated troponins Seen and examined at bedside; 24hour events reviewed; nursing and respiratory care staff consulted; no adverse overnight events reported to me; resting peacefully in bed; AMS is persistent; on PSV trial but with p-supp at 15; AMS is persistent Objective Vital Signs - 12hr 10/29/20 10/29/20 10/29/20 02:59 03:00 03:30 Temperature Pulse Rate 86 85 81 Pulse Rate [ From Monitor] Respiratory 29 H 23 Rate Blood Pressure 169/95 164/89 192/108 O2 Sat by Pulse 99 99 100 Oximetry O2 Sat by Pulse Oximetry [ Assessment] 10/29/20 10/29/20 10/29/20 04:00 04:30 05:00 Temperature 100.2 F H Pulse Rate 81 90 94 H Pulse Rate [ 86 From Monitor] Respiratory 24 28 H 27 H Rate Blood Pressure 180/86 194/109 202/108 O2 Sat by Pulse 99 99 98 Oximetry O2 Sat by Pulse Oximetry [ Assessment] 10/29/20 10/29/20 10/29/20 05:30 06:00 06:30 Temperature Pulse Rate 77 70 69 Pulse Rate [ From Monitor] Respiratory 21 17 18 Rate Blood Pressure 202/108 151/67 147/75 O2 Sat by Pulse 96 97 97 Oximetry O2 Sat by Pulse Oximetry [ Assessment] 10/29/20 10/29/20 10/29/20 07:00 07:30 08:00 Temperature 98.6 F Pulse Rate 72 77 87 Pulse Rate [ From Monitor] Respiratory 18 20 18 Rate Blood Pressure 152/78 166/92 172/119 O2 Sat by Pulse 99 99 99 Oximetry O2 Sat by Pulse Oximetry [ Assessment] 10/29/20 10/29/20 10/29/20 08:30 09:00 09:30 Temperature Pulse Rate 99 H 81 72 Pulse Rate [ From Monitor] Respiratory 26 H 17 17 Rate Blood Pressure 174/120 174/120 144/74 O2 Sat by Pulse 98 97 97 Oximetry O2 Sat by Pulse 100 Oximetry [ Assessment] 10/29/20 10/29/20 10/29/20 09:35 10:00 10:16 Temperature Pulse Rate 78 76 75 Pulse Rate [ From Monitor] Respiratory 17 15 Rate Blood Pressure 144/74 144/85 147/85 O2 Sat by Pulse 98 98 Oximetry O2 Sat by Pulse Oximetry [ Assessment] 10/29/20 10/29/20 10/29/20 10:30 11:00 11:30 Temperature Pulse Rate 74 74 73 Pulse Rate [ From Monitor] Respiratory 17 16 15 Rate Blood Pressure 155/84 159/91 141/94 O2 Sat by Pulse 99 99 99 Oximetry O2 Sat by Pulse Oximetry [ Assessment] 10/29/20 10/29/20 10/29/20 12:00 12:30 13:00 Temperature 99 F Pulse Rate 90 73 75 Pulse Rate [ From Monitor] Respiratory 28 H 16 15 Rate Blood Pressure 183/97 169/91 163/88 O2 Sat by Pulse 98 99 99 Oximetry O2 Sat by Pulse Oximetry [ Assessment] 10/29/20 10/29/20 13:25 13:26 Temperature Pulse Rate 84 82 Pulse Rate [ From Monitor] Respiratory Rate Blood Pressure 163/88 163/88 O2 Sat by Pulse Oximetry O2 Sat by Pulse Oximetry [ Assessment] Constitutional: appears uncomfortable, other (middle aged obese male with mildly increased respiratory efort at rest) Eyes: non-icteric ENT: oropharynx moist, other (ETT 24 cm ANNIE) Neck: supple, no lymphadenopathy, no JVD Effort: mildly labored Ascultation: Bilateral: diminished breath sounds, rhonchi Percussion: Bilateral: not dull Cardiovascular: regular rate and rhythm, other (S1,S2) Gastrointestinal: normoactive bowel sounds, soft, non-tender, non-distended (protuberant) Integumentary: normal Extremities: no cyanosis, no edema, pulses normal, no ischemia or petechiae Neurologic: pupils equal and round, unable to assess Psychiatric: other (unable to assess re: AMS) CBC and BMP: 10/29/20 04:23 10/30/20 04:59 ABG, PT/INR, D-dimer: ABG ABG pH 7.424 (7.320-7.450) 10/25/20 18:10 POC ABG pCO2 52.3 mmHg (32.0-48.0) H 10/25/20 18:10 ABG pCO2 55.5 mm Hg 10/16/20 05:10 POC ABG pO2 97.1 mmHg (83-108) 10/25/20 18:10 ABG pO2 104.5 mm Hg (80.0-90.0) H 10/16/20 05:10 POC ABG HCO3 33.5 10/25/20 18:10 ABG O2 Saturation 97.4 (0-100) 10/25/20 18:10 PT/INR, D-dimer PT 13.5 Sec. (12.2-14.9) 10/28/20 07:00 INR 1.05 (0.87-1.13) 10/28/20 07:00 D-Dimer 679.5 ng/mlDDU (0-234) H 10/10/20 10:48 Abnormal lab findings: Abnormal Labs 10/10/20 10/10/20 10/10/20 10:46 10:46 10:46 WBC RBC Hgb Hct RDW Lymph % (Auto) [place] % (Auto) Lymph # (Auto) [place] # (Auto) Seg Neutrophils % Lymphocytes % (Manual) Monocytes % (Manual) Seg Neutrophils # Seg Neutrophils # Man Lymphocytes # (Manual) Monocytes # (Manual) D-Dimer Heparin Anti-Xa Level ABG pH POC ABG pCO2 POC ABG pO2 ABG pO2 ABG HCO3 ABG O2 Saturation ABG Base Excess ABG Hemoglobin ABG Oxyhemoglobin ABG Sodium ABG Potassium ABG Chloride ABG Glucose VBG pH Oxyhemoglobin Carboxyhemoglobin Sodium Potassium Chloride Carbon Dioxide BUN Creatinine Glucose POC Glucose Lactic Acid 13.60 H* Calcium Phosphorus Magnesium Total Bilirubin AST ALT Ammonia 214.0 H Lactate Dehydrogenase Total Creatine Kinase CK-MB (CK-2) Troponin T NT-Pro-B Natriuret Pep Total Protein Albumin Triglycerides TSH 6.260 H Arterial Blood Glucose Arterial Blood Ionized Calcium Urine pH Urine WBC (Auto) Urine Creatinine 10/10/20 10/10/20 10/10/20 10:46 10:48 10:48 WBC RBC 5.28 H Hgb 15.5 H Hct 48.8 H RDW Lymph % (Auto) [place] % (Auto) Lymph # (Auto) [place] # (Auto) Seg Neutrophils % Lymphocytes % (Manual) 42.0 H Monocytes % (Manual) Seg Neutrophils # Seg Neutrophils # Man Lymphocytes # (Manual) Monocytes # (Manual) D-Dimer Heparin Anti-Xa Level ABG pH POC ABG pCO2 POC ABG pO2 ABG pO2 ABG HCO3 ABG O2 Saturation ABG Base Excess ABG Hemoglobin ABG Oxyhemoglobin ABG Sodium ABG Potassium ABG Chloride ABG Glucose VBG pH Oxyhemoglobin Carboxyhemoglobin Sodium Potassium 3.3 L Chloride 91.2 L Carbon Dioxide BUN Creatinine 1.8 H Glucose 231 H POC Glucose Lactic Acid Calcium Phosphorus Magnesium Total Bilirubin AST 60 H ALT 57 H Ammonia Lactate Dehydrogenase Total Creatine Kinase CK-MB (CK-2) Troponin T NT-Pro-B Natriuret Pep 1187 H Total Protein 9.0 H Albumin Triglycerides TSH Arterial Blood Glucose Arterial Blood Ionized Calcium Urine pH Urine WBC (Auto) Urine Creatinine 10/10/20 10/10/20 10/10/20 10:48 10:48 10:48 WBC RBC Hgb Hct RDW Lymph % (Auto) [place] % (Auto) Lymph # (Auto) [place] # (Auto) Seg Neutrophils % Lymphocytes % (Manual) Monocytes % (Manual) Seg Neutrophils # Seg Neutrophils # Man Lymphocytes # (Manual) Monocytes # (Manual) D-Dimer 679.5 H Heparin Anti-Xa Level ABG pH POC ABG pCO2 POC ABG pO2 ABG pO2 ABG HCO3 ABG O2 Saturation ABG Base Excess ABG Hemoglobin ABG Oxyhemoglobin ABG Sodium ABG Potassium ABG Chloride ABG Glucose VBG pH 6.870 L* Oxyhemoglobin Carboxyhemoglobin Sodium Potassium Chloride Carbon Dioxide BUN Creatinine Glucose POC Glucose Lactic Acid Calcium Phosphorus Magnesium Total Bilirubin AST ALT Ammonia Lactate Dehydrogenase 386 H Total Creatine Kinase CK-MB (CK-2) Troponin T NT-Pro-B Natriuret Pep Total Protein Albumin Triglycerides TSH Arterial Blood Glucose Arterial Blood Ionized Calcium Urine pH Urine WBC (Auto) Urine Creatinine 10/10/20 10/10/20 10/10/20 14:10 14:20 15:50 WBC RBC Hgb Hct RDW Lymph % (Auto) [place] % (Auto) Lymph # (Auto) [place] # (Auto) Seg Neutrophils % Lymphocytes % (Manual) Monocytes % (Manual) Seg Neutrophils # Seg Neutrophils # Man Lymphocytes # (Manual) Monocytes # (Manual) D-Dimer Heparin Anti-Xa Level ABG pH 7.175 L 7.247 L POC ABG pCO2 85.0 H POC ABG pO2 43.7 L ABG pO2 60.3 L ABG HCO3 32.0 H ABG O2 Saturation 86.1 L ABG Base Excess ABG Hemoglobin ABG Oxyhemoglobin 67.7 L ABG Sodium ABG Potassium ABG Chloride ABG Glucose 247 H VBG pH Oxyhemoglobin 84.4 L Carboxyhemoglobin Sodium Potassium Chloride Carbon Dioxide BUN Creatinine Glucose POC Glucose Lactic Acid 4.00 H* Calcium Phosphorus Magnesium Total Bilirubin AST ALT Ammonia Lactate Dehydrogenase Total Creatine Kinase CK-MB (CK-2) Troponin T NT-Pro-B Natriuret Pep Total Protein Albumin Triglycerides TSH Arterial Blood Glucose 247 H Arterial Blood Ionized Calcium 4.4 L Urine pH Urine WBC (Auto) Urine Creatinine 10/10/20 10/10/20 10/10/20 15:50 16:22 18:18 WBC RBC Hgb Hct RDW Lymph % (Auto) [place] % (Auto) Lymph # (Auto) [place] # (Auto) Seg Neutrophils % Lymphocytes % (Manual) Monocytes % (Manual) Seg Neutrophils # Seg Neutrophils # Man Lymphocytes # (Manual) Monocytes # (Manual) D-Dimer Heparin Anti-Xa Level ABG pH 7.171 L POC ABG pCO2 96.6 H POC ABG pO2 55.3 L ABG pO2 ABG HCO3 ABG O2 Saturation ABG Base Excess ABG Hemoglobin ABG Oxyhemoglobin 81.4 L ABG Sodium ABG Potassium ABG Chloride ABG Glucose 115 H VBG pH Oxyhemoglobin Carboxyhemoglobin Sodium Potassium Chloride Carbon Dioxide BUN Creatinine Glucose POC Glucose 132 H Lactic Acid Calcium Phosphorus Magnesium Total Bilirubin AST ALT Ammonia Lactate Dehydrogenase Total Creatine Kinase 1192 H CK-MB (CK-2) 21.7 H Troponin T 0.377 H* D NT-Pro-B Natriuret Pep Total Protein Albumin Triglycerides TSH Arterial Blood Glucose 115 H Arterial Blood Ionized Calcium Urine pH Urine WBC (Auto) Urine Creatinine 10/10/20 10/10/20 10/10/20 18:18 18:18 22:49 WBC 23.0 H RBC 5.12 H Hgb Hct RDW Lymph % (Auto) [place] % (Auto) Lymph # (Auto) [place] # (Auto) Seg Neutrophils % Lymphocytes % (Manual) 4.0 L Monocytes % (Manual) 9.0 H Seg Neutrophils # Seg Neutrophils # Man 13.8 H Lymphocytes # (Manual) 0.9 L Monocytes # (Manual) 2.1 H D-Dimer Heparin Anti-Xa Level ABG pH POC ABG pCO2 POC ABG pO2 ABG pO2 ABG HCO3 ABG O2 Saturation ABG Base Excess ABG Hemoglobin ABG Oxyhemoglobin ABG Sodium ABG Potassium ABG Chloride ABG Glucose VBG pH Oxyhemoglobin Carboxyhemoglobin Sodium 146 H Potassium Chloride Carbon Dioxide 34 H D BUN 27 H Creatinine 2.7 H Glucose 102 H POC Glucose Lactic Acid Calcium Phosphorus Magnesium Total Bilirubin AST 90 H ALT 66 H Ammonia Lactate Dehydrogenase Total Creatine Kinase CK-MB (CK-2) Troponin T 0.273 H* D NT-Pro-B Natriuret Pep Total Protein Albumin Triglycerides TSH Arterial Blood Glucose Arterial Blood Ionized Calcium Urine pH Urine WBC (Auto) Urine Creatinine 10/11/20 10/11/20 10/11/20 02:00 02:00 02:00 WBC 17.3 H RBC Hgb Hct RDW Lymph % (Auto) 3.9 L [place] % (Auto) Lymph # (Auto) 0.7 L [place] # (Auto) Seg Neutrophils % 93.0 H Lymphocytes % (Manual) Monocytes % (Manual) Seg Neutrophils # 16.1 H Seg Neutrophils # Man Lymphocytes # (Manual) Monocytes # (Manual) D-Dimer Heparin Anti-Xa Level ABG pH POC ABG pCO2 POC ABG pO2 ABG pO2 ABG HCO3 ABG O2 Saturation ABG Base Excess ABG Hemoglobin ABG Oxyhemoglobin ABG Sodium ABG Potassium ABG Chloride ABG Glucose VBG pH Oxyhemoglobin Carboxyhemoglobin Sodium 149 H Potassium 3.3 L Chloride 95.3 L Carbon Dioxide 37 H BUN 29 H Creatinine 2.6 H Glucose POC Glucose Lactic Acid Calcium Phosphorus Magnesium Total Bilirubin AST 80 H ALT 59 H Ammonia Lactate Dehydrogenase Total Creatine Kinase CK-MB (CK-2) Troponin T 0.201 H* D NT-Pro-B Natriuret Pep Total Protein Albumin 3.6 L Triglycerides TSH Arterial Blood Glucose Arterial Blood Ionized Calcium Urine pH Urine WBC (Auto) Urine Creatinine 10/11/20 10/11/20 10/11/20 03:51 08:35 11:15 WBC RBC Hgb Hct RDW Lymph % (Auto) [place] % (Auto) Lymph # (Auto) [place] # (Auto) Seg Neutrophils % Lymphocytes % (Manual) Monocytes % (Manual) Seg Neutrophils # Seg Neutrophils # Man Lymphocytes # (Manual) Monocytes # (Manual) D-Dimer Heparin Anti-Xa Level 0.22 L ABG pH 7.491 H POC ABG pCO2 57.6 H POC ABG pO2 ABG pO2 ABG HCO3 ABG O2 Saturation ABG Base Excess ABG Hemoglobin ABG Oxyhemoglobin ABG Sodium 150.0 H ABG Potassium 3.1 L ABG Chloride 96.0 L ABG Glucose 122 H VBG pH Oxyhemoglobin Carboxyhemoglobin Sodium Potassium Chloride Carbon Dioxide BUN Creatinine Glucose POC Glucose 151 H Lactic Acid Calcium Phosphorus Magnesium Total Bilirubin AST ALT Ammonia Lactate Dehydrogenase Total Creatine Kinase CK-MB (CK-2) Troponin T NT-Pro-B Natriuret Pep Total Protein Albumin Triglycerides TSH Arterial Blood Glucose 122 H Arterial Blood Ionized Calcium 3.9 L Urine pH Urine WBC (Auto) Urine Creatinine 10/11/20 10/11/20 10/11/20 13:30 13:30 13:30 WBC 15.0 H RBC Hgb Hct RDW Lymph % (Auto) [place] % (Auto) Lymph # (Auto) [place] # (Auto) Seg Neutrophils % Lymphocytes % (Manual) Monocytes % (Manual) Seg Neutrophils # Seg Neutrophils # Man Lymphocytes # (Manual) Monocytes # (Manual) D-Dimer Heparin Anti-Xa Level ABG pH POC ABG pCO2 POC ABG pO2 ABG pO2 ABG HCO3 ABG O2 Saturation ABG Base Excess ABG Hemoglobin ABG Oxyhemoglobin ABG Sodium ABG Potassium ABG Chloride ABG Glucose VBG pH Oxyhemoglobin Carboxyhemoglobin Sodium Potassium Chloride Carbon Dioxide BUN Creatinine Glucose POC Glucose Lactic Acid Calcium Phosphorus Magnesium Total Bilirubin AST ALT Ammonia Lactate Dehydrogenase Total Creatine Kinase CK-MB (CK-2) Troponin T NT-Pro-B Natriuret Pep Total Protein Albumin Triglycerides TSH Arterial Blood Glucose Arterial Blood Ionized Calcium Urine pH 9.0 H Urine WBC (Auto) 18.0 H Urine Creatinine 80.5 H 10/11/20 10/11/20 10/12/20 17:17 23:14 03:53 WBC RBC Hgb Hct RDW Lymph % (Auto) [place] % (Auto) Lymph # (Auto) [place] # (Auto) Seg Neutrophils % Lymphocytes % (Manual) Monocytes % (Manual) Seg Neutrophils # Seg Neutrophils # Man Lymphocytes # (Manual) Monocytes # (Manual) D-Dimer Heparin Anti-Xa Level ABG pH 7.545 H POC ABG pCO2 54.6 H POC ABG pO2 231.9 H ABG pO2 ABG HCO3 ABG O2 Saturation ABG Base Excess ABG Hemoglobin ABG Oxyhemoglobin 98.5 H ABG Sodium 150.5 H ABG Potassium 3.2 L ABG Chloride 96.0 L ABG Glucose 148 H VBG pH Oxyhemoglobin Carboxyhemoglobin Sodium Potassium Chloride Carbon Dioxide BUN Creatinine Glucose POC Glucose 121 H 135 H Lactic Acid Calcium Phosphorus Magnesium Total Bilirubin AST ALT Ammonia Lactate Dehydrogenase Total Creatine Kinase CK-MB (CK-2) Troponin T NT-Pro-B Natriuret Pep Total Protein Albumin Triglycerides TSH Arterial Blood Glucose 148 H Arterial Blood Ionized Calcium 3.8 L Urine pH Urine WBC (Auto) Urine Creatinine 10/12/20 10/12/20 10/12/20 04:00 05:10 05:12 WBC 14.3 H RBC Hgb 11.6 L Hct 35.2 L RDW Lymph % (Auto) [place] % (Auto) Lymph # (Auto) [place] # (Auto) Seg Neutrophils % Lymphocytes % (Manual) Monocytes % (Manual) Seg Neutrophils # Seg Neutrophils # Man Lymphocytes # (Manual) Monocytes # (Manual) D-Dimer Heparin Anti-Xa Level ABG pH POC ABG pCO2 POC ABG pO2 ABG pO2 ABG HCO3 ABG O2 Saturation ABG Base Excess ABG Hemoglobin ABG Oxyhemoglobin ABG Sodium ABG Potassium ABG Chloride ABG Glucose VBG pH Oxyhemoglobin Carboxyhemoglobin Sodium 155 H Potassium 3.3 L Chloride 97.9 L Carbon Dioxide 47 H* D BUN 50 H Creatinine 3.4 H Glucose 146 H POC Glucose 137 H Lactic Acid Calcium 8.0 L Phosphorus Magnesium Total Bilirubin AST ALT Ammonia Lactate Dehydrogenase Total Creatine Kinase CK-MB (CK-2) Troponin T 0.125 H* D NT-Pro-B Natriuret Pep Total Protein Albumin Triglycerides TSH Arterial Blood Glucose Arterial Blood Ionized Calcium Urine pH Urine WBC (Auto) Urine Creatinine 10/12/20 10/12/20 10/12/20 11:39 16:01 19:49 WBC RBC Hgb Hct RDW Lymph % (Auto) [place] % (Auto) Lymph # (Auto) [place] # (Auto) Seg Neutrophils % Lymphocytes % (Manual) Monocytes % (Manual) Seg Neutrophils # Seg Neutrophils # Man Lymphocytes # (Manual) Monocytes # (Manual) D-Dimer Heparin Anti-Xa Level ABG pH POC ABG pCO2 POC ABG pO2 ABG pO2 ABG HCO3 ABG O2 Saturation ABG Base Excess ABG Hemoglobin ABG Oxyhemoglobin ABG Sodium ABG Potassium ABG Chloride ABG Glucose VBG pH Oxyhemoglobin Carboxyhemoglobin Sodium 157 H Potassium 3.3 L Chloride Carbon Dioxide 47 H* BUN 52 H Creatinine 3.0 H Glucose 137 H POC Glucose 138 H 119 H Lactic Acid Calcium 8.0 L Phosphorus Magnesium Total Bilirubin AST ALT Ammonia Lactate Dehydrogenase Total Creatine Kinase CK-MB (CK-2) Troponin T NT-Pro-B Natriuret Pep Total Protein Albumin Triglycerides TSH Arterial Blood Glucose Arterial Blood Ionized Calcium Urine pH Urine WBC (Auto) Urine Creatinine 03/10/13/20 10/13/20 23:37 02:28 04:52 WBC RBC Hgb Hct RDW Lymph % (Auto) [place] % (Auto) Lymph # (Auto) [place] # (Auto) Seg Neutrophils % Lymphocytes % (Manual) Monocytes % (Manual) Seg Neutrophils # Seg Neutrophils # Man Lymphocytes # (Manual) Monocytes # (Manual) D-Dimer Heparin Anti-Xa Level ABG pH 7.485 H POC ABG pCO2 57.1 H POC ABG pO2 ABG pO2 ABG HCO3 ABG O2 Saturation ABG Base Excess ABG Hemoglobin ABG Oxyhemoglobin ABG Sodium 152.4 H ABG Potassium ABG Chloride ABG Glucose 129 H VBG pH Oxyhemoglobin Carboxyhemoglobin Sodium 155 H Potassium Chloride Carbon Dioxide 45 H* BUN 52 H Creatinine 2.7 H Glucose 121 H POC Glucose 131 H Lactic Acid Calcium Phosphorus Magnesium 2.40 H Total Bilirubin AST ALT Ammonia Lactate Dehydrogenase Total Creatine Kinase CK-MB (CK-2) Troponin T NT-Pro-B Natriuret Pep Total Protein Albumin Triglycerides 278 H TSH Arterial Blood Glucose 129 H Arterial Blood Ionized Calcium 4.1 L Urine pH Urine WBC (Auto) Urine Creatinine 10/13/20 10/13/20 10/13/20 04:52 05:13 11:37 WBC 14.7 H RBC Hgb 11.7 L Hct RDW 15.8 H Lymph % (Auto) [place] % (Auto) Lymph # (Auto) [place] # (Auto) Seg Neutrophils % Lymphocytes % (Manual) Monocytes % (Manual) Seg Neutrophils # Seg Neutrophils # Man Lymphocytes # (Manual) Monocytes # (Manual) D-Dimer Heparin Anti-Xa Level ABG pH POC ABG pCO2 POC ABG pO2 ABG pO2 ABG HCO3 ABG O2 Saturation ABG Base Excess ABG Hemoglobin ABG Oxyhemoglobin ABG Sodium ABG Potassium ABG Chloride ABG Glucose VBG pH Oxyhemoglobin Carboxyhemoglobin Sodium Potassium Chloride Carbon Dioxide BUN Creatinine Glucose POC Glucose 116 H 116 H Lactic Acid Calcium Phosphorus Magnesium Total Bilirubin AST ALT Ammonia Lactate Dehydrogenase Total Creatine Kinase CK-MB (CK-2) Troponin T NT-Pro-B Natriuret Pep Total Protein Albumin Triglycerides TSH Arterial Blood Glucose Arterial Blood Ionized Calcium Urine pH Urine WBC (Auto) Urine Creatinine 10/13/20 10/14/20 10/14/20 17:50 03:45 04:46 WBC 11.1 H RBC Hgb Hct RDW 15.3 H Lymph % (Auto) [place] % (Auto) Lymph # (Auto) [place] # (Auto) Seg Neutrophils % Lymphocytes % (Manual) Monocytes % (Manual) Seg Neutrophils # Seg Neutrophils # Man Lymphocytes # (Manual) Monocytes # (Manual) D-Dimer Heparin Anti-Xa Level ABG pH POC ABG pCO2 59.6 H POC ABG pO2 ABG pO2 ABG HCO3 ABG O2 Saturation ABG Base Excess ABG Hemoglobin ABG Oxyhemoglobin ABG Sodium 151.4 H ABG Potassium 3.3 L ABG Chloride ABG Glucose 138 H VBG pH Oxyhemoglobin Carboxyhemoglobin 1.6 H Sodium Potassium Chloride Carbon Dioxide BUN Creatinine Glucose POC Glucose 140 H Lactic Acid Calcium Phosphorus Magnesium Total Bilirubin AST ALT Ammonia Lactate Dehydrogenase Total Creatine Kinase CK-MB (CK-2) Troponin T NT-Pro-B Natriuret Pep Total Protein Albumin Triglycerides TSH Arterial Blood Glucose 138 H Arterial Blood Ionized Calcium 4.5 L Urine pH Urine WBC (Auto) Urine Creatinine 10/14/20 10/14/20 10/14/20 04:46 05:10 11:11 WBC RBC Hgb Hct RDW Lymph % (Auto) [place] % (Auto) Lymph # (Auto) [place] # (Auto) Seg Neutrophils % Lymphocytes % (Manual) Monocytes % (Manual) Seg Neutrophils # Seg Neutrophils # Man Lymphocytes # (Manual) Monocytes # (Manual) D-Dimer Heparin Anti-Xa Level ABG pH POC ABG pCO2 POC ABG pO2 ABG pO2 ABG HCO3 ABG O2 Saturation ABG Base Excess ABG Hemoglobin ABG Oxyhemoglobin ABG Sodium ABG Potassium ABG Chloride ABG Glucose VBG pH Oxyhemoglobin Carboxyhemoglobin Sodium 152 H Potassium 3.5 L Chloride Carbon Dioxide 38 H D BUN 46 H Creatinine 2.3 H Glucose 127 H POC Glucose 116 H 114 H Lactic Acid Calcium Phosphorus Magnesium Total Bilirubin AST ALT Ammonia Lactate Dehydrogenase Total Creatine Kinase CK-MB (CK-2) Troponin T NT-Pro-B Natriuret Pep Total Protein Albumin Triglycerides TSH Arterial Blood Glucose Arterial Blood Ionized Calcium Urine pH Urine WBC (Auto) Urine Creatinine 10/14/20 10/14/20 10/15/20 18:53 23:23 04:12 WBC RBC Hgb Hct RDW Lymph % (Auto) [place] % (Auto) Lymph # (Auto) [place] # (Auto) Seg Neutrophils % Lymphocytes % (Manual) Monocytes % (Manual) Seg Neutrophils # Seg Neutrophils # Man Lymphocytes # (Manual) Monocytes # (Manual) D-Dimer Heparin Anti-Xa Level ABG pH POC ABG pCO2 POC ABG pO2 ABG pO2 ABG HCO3 ABG O2 Saturation ABG Base Excess ABG Hemoglobin ABG Oxyhemoglobin ABG Sodium ABG Potassium ABG Chloride ABG Glucose VBG pH Oxyhemoglobin Carboxyhemoglobin Sodium 149 H Potassium 3.2 L Chloride Carbon Dioxide 37 H BUN 40 H Creatinine 2.0 H Glucose 124 H POC Glucose 128 H 113 H Lactic Acid Calcium Phosphorus Magnesium Total Bilirubin AST ALT Ammonia Lactate Dehydrogenase Total Creatine Kinase CK-MB (CK-2) Troponin T NT-Pro-B Natriuret Pep Total Protein Albumin Triglycerides TSH Arterial Blood Glucose Arterial Blood Ionized Calcium Urine pH Urine WBC (Auto) Urine Creatinine 10/15/20 10/15/20 10/15/20 04:22 11:39 17:36 WBC RBC Hgb Hct RDW Lymph % (Auto) [place] % (Auto) Lymph # (Auto) [place] # (Auto) Seg Neutrophils % Lymphocytes % (Manual) Monocytes % (Manual) Seg Neutrophils # Seg Neutrophils # Man Lymphocytes # (Manual) Monocytes # (Manual) D-Dimer Heparin Anti-Xa Level ABG pH POC ABG pCO2 POC ABG pO2 ABG pO2 115.0 H ABG HCO3 38.1 H ABG O2 Saturation ABG Base Excess 11.3 H ABG Hemoglobin 11.0 L ABG Oxyhemoglobin ABG Sodium ABG Potassium ABG Chloride ABG Glucose VBG pH Oxyhemoglobin Carboxyhemoglobin Sodium Potassium Chloride Carbon Dioxide BUN Creatinine Glucose POC Glucose 123 H 118 H Lactic Acid Calcium Phosphorus Magnesium Total Bilirubin AST ALT Ammonia Lactate Dehydrogenase Total Creatine Kinase CK-MB (CK-2) Troponin T NT-Pro-B Natriuret Pep Total Protein Albumin Triglycerides TSH Arterial Blood Glucose Arterial Blood Ionized Calcium Urine pH Urine WBC (Auto) Urine Creatinine 10/15/20 10/16/20 10/16/20 23:18 03:13 05:10 WBC RBC Hgb Hct RDW Lymph % (Auto) [place] % (Auto) Lymph # (Auto) [place] # (Auto) Seg Neutrophils % Lymphocytes % (Manual) Monocytes % (Manual) Seg Neutrophils # Seg Neutrophils # Man Lymphocytes # (Manual) Monocytes # (Manual) D-Dimer Heparin Anti-Xa Level ABG pH POC ABG pCO2 POC ABG pO2 ABG pO2 104.5 H ABG HCO3 35.1 H ABG O2 Saturation ABG Base Excess 9.5 H ABG Hemoglobin 7.9 L ABG Oxyhemoglobin ABG Sodium ABG Potassium ABG Chloride ABG Glucose VBG pH Oxyhemoglobin Carboxyhemoglobin Sodium Potassium 3.3 L Chloride Carbon Dioxide 33 H BUN 37 H Creatinine 1.4 H Glucose 148 H POC Glucose 135 H Lactic Acid Calcium Phosphorus Magnesium 2.40 H Total Bilirubin AST ALT Ammonia Lactate Dehydrogenase Total Creatine Kinase CK-MB (CK-2) Troponin T NT-Pro-B Natriuret Pep Total Protein Albumin Triglycerides TSH Arterial Blood Glucose Arterial Blood Ionized Calcium Urine pH Urine WBC (Auto) Urine Creatinine 10/16/20 10/16/20 10/16/20 06:36 11:08 17:07 WBC RBC Hgb Hct RDW Lymph % (Auto) [place] % (Auto) Lymph # (Auto) [place] # (Auto) Seg Neutrophils % Lymphocytes % (Manual) Monocytes % (Manual) Seg Neutrophils # Seg Neutrophils # Man Lymphocytes # (Manual) Monocytes # (Manual) D-Dimer Heparin Anti-Xa Level ABG pH POC ABG pCO2 POC ABG pO2 ABG pO2 ABG HCO3 ABG O2 Saturation ABG Base Excess ABG Hemoglobin ABG Oxyhemoglobin ABG Sodium ABG Potassium ABG Chloride ABG Glucose VBG pH Oxyhemoglobin Carboxyhemoglobin Sodium Potassium Chloride Carbon Dioxide BUN Creatinine Glucose POC Glucose 150 H 111 H 132 H Lactic Acid Calcium Phosphorus Magnesium Total Bilirubin AST ALT Ammonia Lactate Dehydrogenase Total Creatine Kinase CK-MB (CK-2) Troponin T NT-Pro-B Natriuret Pep Total Protein Albumin Triglycerides TSH Arterial Blood Glucose Arterial Blood Ionized Calcium Urine pH Urine WBC (Auto) Urine Creatinine 10/16/20 10/17/20 10/17/20 23:38 03:32 03:32 WBC RBC Hgb Hct RDW Lymph % (Auto) [place] % (Auto) Lymph # (Auto) [place] # (Auto) Seg Neutrophils % Lymphocytes % (Manual) Monocytes % (Manual) Seg Neutrophils # Seg Neutrophils # Man Lymphocytes # (Manual) Monocytes # (Manual) D-Dimer Heparin Anti-Xa Level ABG pH POC ABG pCO2 POC ABG pO2 ABG pO2 ABG HCO3 ABG O2 Saturation ABG Base Excess ABG Hemoglobin ABG Oxyhemoglobin ABG Sodium ABG Potassium ABG Chloride ABG Glucose VBG pH Oxyhemoglobin Carboxyhemoglobin Sodium 146 H Potassium Chloride Carbon Dioxide 32 H BUN 57 H Creatinine 2.4 H D Glucose 124 H POC Glucose 117 H Lactic Acid Calcium Phosphorus 5.20 H D Magnesium Total Bilirubin AST ALT Ammonia Lactate Dehydrogenase Total Creatine Kinase CK-MB (CK-2) Troponin T NT-Pro-B Natriuret Pep Total Protein Albumin Triglycerides TSH Arterial Blood Glucose Arterial Blood Ionized Calcium Urine pH Urine WBC (Auto) Urine Creatinine 10/17/20 10/17/20 10/18/20 05:10 17:33 00:13 WBC RBC Hgb Hct RDW Lymph % (Auto) [place] % (Auto) Lymph # (Auto) [place] # (Auto) Seg Neutrophils % Lymphocytes % (Manual) Monocytes % (Manual) Seg Neutrophils # Seg Neutrophils # Man Lymphocytes # (Manual) Monocytes # (Manual) D-Dimer Heparin Anti-Xa Level ABG pH POC ABG pCO2 POC ABG pO2 ABG pO2 ABG HCO3 ABG O2 Saturation ABG Base Excess ABG Hemoglobin ABG Oxyhemoglobin ABG Sodium ABG Potassium ABG Chloride ABG Glucose VBG pH Oxyhemoglobin Carboxyhemoglobin Sodium Potassium Chloride Carbon Dioxide BUN Creatinine Glucose POC Glucose 122 H 121 H 23 L Lactic Acid Calcium Phosphorus Magnesium Total Bilirubin AST ALT Ammonia Lactate Dehydrogenase Total Creatine Kinase CK-MB (CK-2) Troponin T NT-Pro-B Natriuret Pep Total Protein Albumin Triglycerides TSH Arterial Blood Glucose Arterial Blood Ionized Calcium Urine pH Urine WBC (Auto) Urine Creatinine 10/18/20 10/18/20 10/18/20 00:16 03:27 03:27 WBC RBC Hgb 11.7 L Hct RDW Lymph % (Auto) [place] % (Auto) Lymph # (Auto) [place] # (Auto) Seg Neutrophils % Lymphocytes % (Manual) Monocytes % (Manual) Seg Neutrophils # Seg Neutrophils # Man Lymphocytes # (Manual) Monocytes # (Manual) D-Dimer Heparin Anti-Xa Level ABG pH POC ABG pCO2 POC ABG pO2 ABG pO2 ABG HCO3 ABG O2 Saturation ABG Base Excess ABG Hemoglobin ABG Oxyhemoglobin ABG Sodium ABG Potassium ABG Chloride ABG Glucose VBG pH Oxyhemoglobin Carboxyhemoglobin Sodium Potassium Chloride 97.6 L Carbon Dioxide BUN 90 H Creatinine 3.3 H Glucose 146 H POC Glucose 134 H Lactic Acid Calcium Phosphorus Magnesium Total Bilirubin 1.70 H AST ALT Ammonia Lactate Dehydrogenase Total Creatine Kinase CK-MB (CK-2) Troponin T NT-Pro-B Natriuret Pep Total Protein Albumin 3.1 L Triglycerides TSH Arterial Blood Glucose Arterial Blood Ionized Calcium Urine pH Urine WBC (Auto) Urine Creatinine 10/18/20 10/18/20 10/18/20 05:09 11:19 17:15 WBC RBC Hgb Hct RDW Lymph % (Auto) [place] % (Auto) Lymph # (Auto) [place] # (Auto) Seg Neutrophils % Lymphocytes % (Manual) Monocytes % (Manual) Seg Neutrophils # Seg Neutrophils # Man Lymphocytes # (Manual) Monocytes # (Manual) D-Dimer Heparin Anti-Xa Level ABG pH POC ABG pCO2 POC ABG pO2 ABG pO2 ABG HCO3 ABG O2 Saturation ABG Base Excess ABG Hemoglobin ABG Oxyhemoglobin ABG Sodium ABG Potassium ABG Chloride ABG Glucose VBG pH Oxyhemoglobin Carboxyhemoglobin Sodium Potassium Chloride Carbon Dioxide BUN Creatinine Glucose POC Glucose 144 H 145 H 151 H Lactic Acid Calcium Phosphorus Magnesium Total Bilirubin AST ALT Ammonia Lactate Dehydrogenase Total Creatine Kinase CK-MB (CK-2) Troponin T NT-Pro-B Natriuret Pep Total Protein Albumin Triglycerides TSH Arterial Blood Glucose Arterial Blood Ionized Calcium Urine pH Urine WBC (Auto) Urine Creatinine 10/18/20 10/18/20 10/19/20 23:16 Unknown 04:55 WBC RBC Hgb Hct RDW Lymph % (Auto) [place] % (Auto) Lymph # (Auto) [place] # (Auto) Seg Neutrophils % Lymphocytes % (Manual) Monocytes % (Manual) Seg Neutrophils # Seg Neutrophils # Man Lymphocytes # (Manual) Monocytes # (Manual) D-Dimer Heparin Anti-Xa Level ABG pH POC ABG pCO2 POC ABG pO2 ABG pO2 ABG HCO3 ABG O2 Saturation ABG Base Excess ABG Hemoglobin ABG Oxyhemoglobin ABG Sodium ABG Potassium ABG Chloride ABG Glucose VBG pH Oxyhemoglobin Carboxyhemoglobin Sodium Potassium Chloride Carbon Dioxide BUN 104 H Creatinine 3.1 H Glucose 139 H POC Glucose 123 H Lactic Acid Calcium Phosphorus Magnesium Total Bilirubin AST ALT Ammonia Lactate Dehydrogenase Total Creatine Kinase CK-MB (CK-2) Troponin T NT-Pro-B Natriuret Pep Total Protein Albumin Triglycerides TSH Arterial Blood Glucose Arterial Blood Ionized Calcium Urine pH Urine WBC (Auto) 115.0 H Urine Creatinine 10/19/20 10/19/20 10/19/20 04:55 11:35 13:14 WBC 15.1 H RBC Hgb 11.1 L Hct 34.4 L RDW Lymph % (Auto) 4.2 L [place] % (Auto) 11.9 H Lymph # (Auto) 0.6 L [place] # (Auto) 1.8 H Seg Neutrophils % 82.0 H Lymphocytes % (Manual) Monocytes % (Manual) Seg Neutrophils # 12.4 H Seg Neutrophils # Man Lymphocytes # (Manual) Monocytes # (Manual) D-Dimer Heparin Anti-Xa Level ABG pH POC ABG pCO2 POC ABG pO2 ABG pO2 ABG HCO3 ABG O2 Saturation ABG Base Excess ABG Hemoglobin ABG Oxyhemoglobin ABG Sodium ABG Potassium ABG Chloride ABG Glucose VBG pH Oxyhemoglobin Carboxyhemoglobin Sodium Potassium Chloride Carbon Dioxide BUN Creatinine Glucose POC Glucose 136 H Lactic Acid Calcium Phosphorus Magnesium Total Bilirubin AST ALT Ammonia Lactate Dehydrogenase Total Creatine Kinase CK-MB (CK-2) Troponin T NT-Pro-B Natriuret Pep Total Protein Albumin Triglycerides TSH Arterial Blood Glucose Arterial Blood Ionized Calcium Urine pH Urine WBC (Auto) Urine Creatinine 93.7 H 10/19/20 10/19/20 10/20/20 17:53 23:39 04:30 WBC RBC Hgb Hct RDW Lymph % (Auto) [place] % (Auto) Lymph # (Auto) [place] # (Auto) Seg Neutrophils % Lymphocytes % (Manual) Monocytes % (Manual) Seg Neutrophils # Seg Neutrophils # Man Lymphocytes # (Manual) Monocytes # (Manual) D-Dimer Heparin Anti-Xa Level ABG pH POC ABG pCO2 POC ABG pO2 ABG pO2 ABG HCO3 ABG O2 Saturation ABG Base Excess ABG Hemoglobin ABG Oxyhemoglobin ABG Sodium ABG Potassium ABG Chloride ABG Glucose VBG pH Oxyhemoglobin Carboxyhemoglobin Sodium Potassium Chloride Carbon Dioxide BUN 104 H Creatinine 2.8 H Glucose 151 H POC Glucose 137 H 133 H Lactic Acid Calcium Phosphorus Magnesium Total Bilirubin AST ALT Ammonia Lactate Dehydrogenase Total Creatine Kinase CK-MB (CK-2) Troponin T NT-Pro-B Natriuret Pep Total Protein Albumin Triglycerides TSH Arterial Blood Glucose Arterial Blood Ionized Calcium Urine pH Urine WBC (Auto) Urine Creatinine 10/20/20 10/20/20 10/20/20 04:30 05:38 11:34 WBC 17.9 H RBC Hgb 11.7 L Hct RDW Lymph % (Auto) [place] % (Auto) Lymph # (Auto) [place] # (Auto) Seg Neutrophils % Lymphocytes % (Manual) Monocytes % (Manual) Seg Neutrophils # Seg Neutrophils # Man Lymphocytes # (Manual) Monocytes # (Manual) D-Dimer Heparin Anti-Xa Level ABG pH POC ABG pCO2 POC ABG pO2 ABG pO2 ABG HCO3 ABG O2 Saturation ABG Base Excess ABG Hemoglobin ABG Oxyhemoglobin ABG Sodium ABG Potassium ABG Chloride ABG Glucose VBG pH Oxyhemoglobin Carboxyhemoglobin Sodium Potassium Chloride Carbon Dioxide BUN Creatinine Glucose POC Glucose 164 H 148 H Lactic Acid Calcium Phosphorus Magnesium Total Bilirubin AST ALT Ammonia Lactate Dehydrogenase Total Creatine Kinase CK-MB (CK-2) Troponin T NT-Pro-B Natriuret Pep Total Protein Albumin Triglycerides TSH Arterial Blood Glucose Arterial Blood Ionized Calcium Urine pH Urine WBC (Auto) Urine Creatinine 10/20/20 10/20/20 10/20/20 17:40 20:20 23:29 WBC RBC Hgb Hct RDW Lymph % (Auto) [place] % (Auto) Lymph # (Auto) [place] # (Auto) Seg Neutrophils % Lymphocytes % (Manual) Monocytes % (Manual) Seg Neutrophils # Seg Neutrophils # Man Lymphocytes # (Manual) Monocytes # (Manual) D-Dimer Heparin Anti-Xa Level ABG pH 7.292 L POC ABG pCO2 68.5 H POC ABG pO2 ABG pO2 ABG HCO3 ABG O2 Saturation ABG Base Excess ABG Hemoglobin 11.6 L ABG Oxyhemoglobin ABG Sodium ABG Potassium ABG Chloride ABG Glucose 145 H VBG pH Oxyhemoglobin Carboxyhemoglobin Sodium Potassium Chloride Carbon Dioxide BUN Creatinine Glucose POC Glucose 130 H 136 H Lactic Acid Calcium Phosphorus Magnesium Total Bilirubin AST ALT Ammonia Lactate Dehydrogenase Total Creatine Kinase CK-MB (CK-2) Troponin T NT-Pro-B Natriuret Pep Total Protein Albumin Triglycerides TSH Arterial Blood Glucose 145 H Arterial Blood Ionized Calcium Urine pH Urine WBC (Auto) Urine Creatinine 10/21/20 10/21/20 10/21/20 04:20 06:26 06:30 WBC RBC Hgb Hct RDW Lymph % (Auto) [place] % (Auto) Lymph # (Auto) [place] # (Auto) Seg Neutrophils % Lymphocytes % (Manual) Monocytes % (Manual) Seg Neutrophils # Seg Neutrophils # Man Lymphocytes # (Manual) Monocytes # (Manual) D-Dimer Heparin Anti-Xa Level ABG pH 7.262 L POC ABG pCO2 72.4 H POC ABG pO2 81.6 L ABG pO2 ABG HCO3 ABG O2 Saturation ABG Base Excess ABG Hemoglobin 11.6 L ABG Oxyhemoglobin ABG Sodium ABG Potassium ABG Chloride ABG Glucose 140 H VBG pH Oxyhemoglobin Carboxyhemoglobin Sodium Potassium Chloride Carbon Dioxide 33 H BUN 104 H Creatinine 2.9 H Glucose 153 H POC Glucose 128 H Lactic Acid Calcium Phosphorus Magnesium Total Bilirubin AST ALT Ammonia Lactate Dehydrogenase Total Creatine Kinase CK-MB (CK-2) Troponin T NT-Pro-B Natriuret Pep Total Protein Albumin Triglycerides TSH Arterial Blood Glucose 140 H Arterial Blood Ionized Calcium Urine pH Urine WBC (Auto) Urine Creatinine 10/21/20 10/21/20 10/21/20 06:30 11:24 17:21 WBC 13.3 H RBC Hgb 10.7 L Hct 32.7 L RDW Lymph % (Auto) [place] % (Auto) Lymph # (Auto) [place] # (Auto) Seg Neutrophils % Lymphocytes % (Manual) Monocytes % (Manual) Seg Neutrophils # Seg Neutrophils # Man Lymphocytes # (Manual) Monocytes # (Manual) D-Dimer Heparin Anti-Xa Level ABG pH POC ABG pCO2 POC ABG pO2 ABG pO2 ABG HCO3 ABG O2 Saturation ABG Base Excess ABG Hemoglobin ABG Oxyhemoglobin ABG Sodium ABG Potassium ABG Chloride ABG Glucose VBG pH Oxyhemoglobin Carboxyhemoglobin Sodium Potassium Chloride Carbon Dioxide BUN Creatinine Glucose POC Glucose 178 H 138 H Lactic Acid Calcium Phosphorus Magnesium Total Bilirubin AST ALT Ammonia Lactate Dehydrogenase Total Creatine Kinase CK-MB (CK-2) Troponin T NT-Pro-B Natriuret Pep Total Protein Albumin Triglycerides TSH Arterial Blood Glucose Arterial Blood Ionized Calcium Urine pH Urine WBC (Auto) Urine Creatinine 10/22/20 10/22/20 10/22/20 00:05 04:30 06:15 WBC RBC Hgb Hct RDW Lymph % (Auto) [place] % (Auto) Lymph # (Auto) [place] # (Auto) Seg Neutrophils % Lymphocytes % (Manual) Monocytes % (Manual) Seg Neutrophils # Seg Neutrophils # Man Lymphocytes # (Manual) Monocytes # (Manual) D-Dimer Heparin Anti-Xa Level ABG pH 7.225 L POC ABG pCO2 76.6 H POC ABG pO2 ABG pO2 ABG HCO3 ABG O2 Saturation ABG Base Excess ABG Hemoglobin 11.1 L ABG Oxyhemoglobin ABG Sodium ABG Potassium ABG Chloride ABG Glucose 151 H VBG pH Oxyhemoglobin Carboxyhemoglobin Sodium Potassium Chloride Carbon Dioxide 32 H BUN 103 H Creatinine 2.7 H Glucose 151 H POC Glucose 135 H Lactic Acid Calcium Phosphorus Magnesium Total Bilirubin AST ALT Ammonia Lactate Dehydrogenase Total Creatine Kinase CK-MB (CK-2) Troponin T NT-Pro-B Natriuret Pep Total Protein Albumin Triglycerides TSH Arterial Blood Glucose 151 H Arterial Blood Ionized Calcium Urine pH Urine WBC (Auto) Urine Creatinine 10/22/20 10/22/20 10/22/20 06:18 11:34 11:44 WBC RBC Hgb Hct RDW Lymph % (Auto) [place] % (Auto) Lymph # (Auto) [place] # (Auto) Seg Neutrophils % Lymphocytes % (Manual) Monocytes % (Manual) Seg Neutrophils # Seg Neutrophils # Man Lymphocytes # (Manual) Monocytes # (Manual) D-Dimer Heparin Anti-Xa Level ABG pH 7.278 L POC ABG pCO2 67.8 H POC ABG pO2 ABG pO2 ABG HCO3 ABG O2 Saturation ABG Base Excess ABG Hemoglobin 10.2 L ABG Oxyhemoglobin ABG Sodium ABG Potassium ABG Chloride ABG Glucose 172 H VBG pH Oxyhemoglobin Carboxyhemoglobin Sodium Potassium Chloride Carbon Dioxide BUN Creatinine Glucose POC Glucose 137 H 147 H Lactic Acid Calcium Phosphorus Magnesium Total Bilirubin AST ALT Ammonia Lactate Dehydrogenase Total Creatine Kinase CK-MB (CK-2) Troponin T NT-Pro-B Natriuret Pep Total Protein Albumin Triglycerides TSH Arterial Blood Glucose 172 H Arterial Blood Ionized Calcium Urine pH Urine WBC (Auto) Urine Creatinine 10/22/20 10/22/20 10/23/20 17:40 23:55 05:11 WBC RBC Hgb Hct RDW Lymph % (Auto) [place] % (Auto) Lymph # (Auto) [place] # (Auto) Seg Neutrophils % Lymphocytes % (Manual) Monocytes % (Manual) Seg Neutrophils # Seg Neutrophils # Man Lymphocytes # (Manual) Monocytes # (Manual) D-Dimer Heparin Anti-Xa Level ABG pH POC ABG pCO2 63.6 H POC ABG pO2 81.2 L ABG pO2 ABG HCO3 ABG O2 Saturation ABG Base Excess ABG Hemoglobin 10.6 L ABG Oxyhemoglobin ABG Sodium ABG Potassium ABG Chloride 109.0 H ABG Glucose 149 H VBG pH Oxyhemoglobin Carboxyhemoglobin Sodium Potassium Chloride Carbon Dioxide BUN Creatinine Glucose POC Glucose 141 H 139 H Lactic Acid Calcium Phosphorus Magnesium Total Bilirubin AST ALT Ammonia Lactate Dehydrogenase Total Creatine Kinase CK-MB (CK-2) Troponin T NT-Pro-B Natriuret Pep Total Protein Albumin Triglycerides TSH Arterial Blood Glucose 149 H Arterial Blood Ionized Calcium Urine pH Urine WBC (Auto) Urine Creatinine 10/23/20 10/23/20 10/23/20 05:39 06:00 11:32 WBC RBC Hgb Hct RDW Lymph % (Auto) [place] % (Auto) Lymph # (Auto) [place] # (Auto) Seg Neutrophils % Lymphocytes % (Manual) Monocytes % (Manual) Seg Neutrophils # Seg Neutrophils # Man Lymphocytes # (Manual) Monocytes # (Manual) D-Dimer Heparin Anti-Xa Level ABG pH POC ABG pCO2 POC ABG pO2 ABG pO2 ABG HCO3 ABG O2 Saturation ABG Base Excess ABG Hemoglobin ABG Oxyhemoglobin ABG Sodium ABG Potassium ABG Chloride ABG Glucose VBG pH Oxyhemoglobin Carboxyhemoglobin Sodium 146 H Potassium Chloride Carbon Dioxide 35 H BUN 92 H Creatinine 2.0 H Glucose 144 H POC Glucose 139 H 176 H Lactic Acid Calcium Phosphorus Magnesium Total Bilirubin AST ALT Ammonia Lactate Dehydrogenase Total Creatine Kinase CK-MB (CK-2) Troponin T NT-Pro-B Natriuret Pep Total Protein Albumin Triglycerides TSH Arterial Blood Glucose Arterial Blood Ionized Calcium Urine pH Urine WBC (Auto) Urine Creatinine 10/23/20 10/23/20 10/24/20 11:34 17:55 05:33 WBC RBC Hgb Hct RDW Lymph % (Auto) [place] % (Auto) Lymph # (Auto) [place] # (Auto) Seg Neutrophils % Lymphocytes % (Manual) Monocytes % (Manual) Seg Neutrophils # Seg Neutrophils # Man Lymphocytes # (Manual) Monocytes # (Manual) D-Dimer Heparin Anti-Xa Level ABG pH POC ABG pCO2 POC ABG pO2 ABG pO2 ABG HCO3 ABG O2 Saturation ABG Base Excess ABG Hemoglobin ABG Oxyhemoglobin ABG Sodium ABG Potassium ABG Chloride ABG Glucose VBG pH Oxyhemoglobin Carboxyhemoglobin Sodium 147 H Potassium Chloride Carbon Dioxide 32 H BUN 76 H Creatinine 1.7 H Glucose 172 H POC Glucose 173 H 135 H Lactic Acid Calcium Phosphorus Magnesium Total Bilirubin AST ALT Ammonia Lactate Dehydrogenase Total Creatine Kinase CK-MB (CK-2) Troponin T NT-Pro-B Natriuret Pep Total Protein Albumin Triglycerides TSH Arterial Blood Glucose Arterial Blood Ionized Calcium Urine pH Urine WBC (Auto) Urine Creatinine 10/24/20 10/24/20 10/24/20 05:41 12:09 18:09 WBC RBC Hgb Hct RDW Lymph % (Auto) [place] % (Auto) Lymph # (Auto) [place] # (Auto) Seg Neutrophils % Lymphocytes % (Manual) Monocytes % (Manual) Seg Neutrophils # Seg Neutrophils # Man Lymphocytes # (Manual) Monocytes # (Manual) D-Dimer Heparin Anti-Xa Level ABG pH POC ABG pCO2 POC ABG pO2 ABG pO2 ABG HCO3 ABG O2 Saturation ABG Base Excess ABG Hemoglobin ABG Oxyhemoglobin ABG Sodium ABG Potassium ABG Chloride ABG Glucose VBG pH Oxyhemoglobin Carboxyhemoglobin Sodium Potassium Chloride Carbon Dioxide BUN Creatinine Glucose POC Glucose 156 H 154 H 132 H Lactic Acid Calcium Phosphorus Magnesium Total Bilirubin AST ALT Ammonia Lactate Dehydrogenase Total Creatine Kinase CK-MB (CK-2) Troponin T NT-Pro-B Natriuret Pep Total Protein Albumin Triglycerides TSH Arterial Blood Glucose Arterial Blood Ionized Calcium Urine pH Urine WBC (Auto) Urine Creatinine 10/24/20 10/25/20 10/25/20 23:39 05:29 08:55 WBC RBC Hgb Hct RDW Lymph % (Auto) [place] % (Auto) Lymph # (Auto) [place] # (Auto) Seg Neutrophils % Lymphocytes % (Manual) Monocytes % (Manual) Seg Neutrophils # Seg Neutrophils # Man Lymphocytes # (Manual) Monocytes # (Manual) D-Dimer Heparin Anti-Xa Level ABG pH POC ABG pCO2 POC ABG pO2 ABG pO2 ABG HCO3 ABG O2 Saturation ABG Base Excess ABG Hemoglobin ABG Oxyhemoglobin ABG Sodium ABG Potassium ABG Chloride ABG Glucose VBG pH Oxyhemoglobin Carboxyhemoglobin Sodium 150 H Potassium Chloride 108.3 H Carbon Dioxide 32 H BUN 57 H Creatinine 1.5 H Glucose 142 H POC Glucose 131 H 142 H Lactic Acid Calcium Phosphorus Magnesium Total Bilirubin AST ALT Ammonia Lactate Dehydrogenase Total Creatine Kinase CK-MB (CK-2) Troponin T NT-Pro-B Natriuret Pep Total Protein Albumin Triglycerides TSH Arterial Blood Glucose Arterial Blood Ionized Calcium Urine pH Urine WBC (Auto) Urine Creatinine 10/25/20 10/25/20 10/25/20 08:55 11:08 18:10 WBC 14.3 H RBC 3.57 L Hgb 10.3 L Hct 31.6 L RDW Lymph % (Auto) [place] % (Auto) Lymph # (Auto) [place] # (Auto) Seg Neutrophils % Lymphocytes % (Manual) Monocytes % (Manual) Seg Neutrophils # Seg Neutrophils # Man Lymphocytes # (Manual) Monocytes # (Manual) D-Dimer Heparin Anti-Xa Level ABG pH POC ABG pCO2 52.3 H POC ABG pO2 ABG pO2 ABG HCO3 ABG O2 Saturation ABG Base Excess ABG Hemoglobin 11.2 L ABG Oxyhemoglobin ABG Sodium ABG Potassium ABG Chloride 108.0 H ABG Glucose 167 H VBG pH Oxyhemoglobin Carboxyhemoglobin Sodium Potassium Chloride Carbon Dioxide BUN Creatinine Glucose POC Glucose 157 H Lactic Acid Calcium Phosphorus Magnesium Total Bilirubin AST ALT Ammonia Lactate Dehydrogenase Total Creatine Kinase CK-MB (CK-2) Troponin T NT-Pro-B Natriuret Pep Total Protein Albumin Triglycerides TSH Arterial Blood Glucose 167 H Arterial Blood Ionized Calcium Urine pH Urine WBC (Auto) Urine Creatinine 10/25/20 10/26/20 10/26/20 18:20 00:20 06:08 WBC RBC Hgb Hct RDW Lymph % (Auto) [place] % (Auto) Lymph # (Auto) [place] # (Auto) Seg Neutrophils % Lymphocytes % (Manual) Monocytes % (Manual) Seg Neutrophils # Seg Neutrophils # Man Lymphocytes # (Manual) Monocytes # (Manual) D-Dimer Heparin Anti-Xa Level ABG pH POC ABG pCO2 POC ABG pO2 ABG pO2 ABG HCO3 ABG O2 Saturation ABG Base Excess ABG Hemoglobin ABG Oxyhemoglobin ABG Sodium ABG Potassium ABG Chloride ABG Glucose VBG pH Oxyhemoglobin Carboxyhemoglobin Sodium Potassium Chloride Carbon Dioxide BUN Creatinine Glucose POC Glucose 127 H 108 H 119 H Lactic Acid Calcium Phosphorus Magnesium Total Bilirubin AST ALT Ammonia Lactate Dehydrogenase Total Creatine Kinase CK-MB (CK-2) Troponin T NT-Pro-B Natriuret Pep Total Protein Albumin Triglycerides TSH Arterial Blood Glucose Arterial Blood Ionized Calcium Urine pH Urine WBC (Auto) Urine Creatinine 10/26/20 10/26/20 10/26/20 07:38 07:38 11:28 WBC 13.5 H RBC 3.37 L Hgb 9.8 L Hct 30.0 L RDW Lymph % (Auto) [place] % (Auto) Lymph # (Auto) [place] # (Auto) Seg Neutrophils % Lymphocytes % (Manual) Monocytes % (Manual) Seg Neutrophils # Seg Neutrophils # Man Lymphocytes # (Manual) Monocytes # (Manual) D-Dimer Heparin Anti-Xa Level ABG pH POC ABG pCO2 POC ABG pO2 ABG pO2 ABG HCO3 ABG O2 Saturation ABG Base Excess ABG Hemoglobin ABG Oxyhemoglobin ABG Sodium ABG Potassium ABG Chloride ABG Glucose VBG pH Oxyhemoglobin Carboxyhemoglobin Sodium 149 H Potassium Chloride 107.6 H Carbon Dioxide 34 H BUN 49 H Creatinine 1.4 H Glucose 137 H POC Glucose 148 H Lactic Acid Calcium Phosphorus Magnesium Total Bilirubin AST ALT Ammonia Lactate Dehydrogenase Total Creatine Kinase CK-MB (CK-2) Troponin T NT-Pro-B Natriuret Pep Total Protein Albumin Triglycerides TSH Arterial Blood Glucose Arterial Blood Ionized Calcium Urine pH Urine WBC (Auto) Urine Creatinine 10/26/20 10/26/20 10/27/20 18:17 23:37 05:08 WBC RBC Hgb Hct RDW Lymph % (Auto) [place] % (Auto) Lymph # (Auto) [place] # (Auto) Seg Neutrophils % Lymphocytes % (Manual) Monocytes % (Manual) Seg Neutrophils # Seg Neutrophils # Man Lymphocytes # (Manual) Monocytes # (Manual) D-Dimer Heparin Anti-Xa Level ABG pH POC ABG pCO2 POC ABG pO2 ABG pO2 ABG HCO3 ABG O2 Saturation ABG Base Excess ABG Hemoglobin ABG Oxyhemoglobin ABG Sodium ABG Potassium ABG Chloride ABG Glucose VBG pH Oxyhemoglobin Carboxyhemoglobin Sodium Potassium Chloride Carbon Dioxide BUN Creatinine Glucose POC Glucose 121 H 152 H 120 H Lactic Acid Calcium Phosphorus Magnesium Total Bilirubin AST ALT Ammonia Lactate Dehydrogenase Total Creatine Kinase CK-MB (CK-2) Troponin T NT-Pro-B Natriuret Pep Total Protein Albumin Triglycerides TSH Arterial Blood Glucose Arterial Blood Ionized Calcium Urine pH Urine WBC (Auto) Urine Creatinine 10/27/20 10/27/20 10/27/20 07:30 07:30 11:59 WBC RBC 3.46 L Hgb 10.2 L Hct 30.9 L RDW Lymph % (Auto) [place] % (Auto) Lymph # (Auto) [place] # (Auto) Seg Neutrophils % Lymphocytes % (Manual) Monocytes % (Manual) Seg Neutrophils # Seg Neutrophils # Man Lymphocytes # (Manual) Monocytes # (Manual) D-Dimer Heparin Anti-Xa Level ABG pH POC ABG pCO2 POC ABG pO2 ABG pO2 ABG HCO3 ABG O2 Saturation ABG Base Excess ABG Hemoglobin ABG Oxyhemoglobin ABG Sodium ABG Potassium ABG Chloride ABG Glucose VBG pH Oxyhemoglobin Carboxyhemoglobin Sodium 146 H Potassium Chloride Carbon Dioxide 34 H BUN 45 H Creatinine Glucose 131 H POC Glucose 143 H Lactic Acid Calcium Phosphorus Magnesium Total Bilirubin AST ALT Ammonia Lactate Dehydrogenase Total Creatine Kinase CK-MB (CK-2) Troponin T NT-Pro-B Natriuret Pep Total Protein Albumin Triglycerides TSH Arterial Blood Glucose Arterial Blood Ionized Calcium Urine pH Urine WBC (Auto) Urine Creatinine 10/27/20 10/27/20 10/28/20 18:52 23:03 07:00 WBC RBC Hgb Hct RDW Lymph % (Auto) [place] % (Auto) Lymph # (Auto) [place] # (Auto) Seg Neutrophils % Lymphocytes % (Manual) Monocytes % (Manual) Seg Neutrophils # Seg Neutrophils # Man Lymphocytes # (Manual) Monocytes # (Manual) D-Dimer Heparin Anti-Xa Level ABG pH POC ABG pCO2 POC ABG pO2 ABG pO2 ABG HCO3 ABG O2 Saturation ABG Base Excess ABG Hemoglobin ABG Oxyhemoglobin ABG Sodium ABG Potassium ABG Chloride ABG Glucose VBG pH Oxyhemoglobin Carboxyhemoglobin Sodium 147 H Potassium Chloride Carbon Dioxide 35 H BUN 39 H Creatinine Glucose 133 H POC Glucose 119 H 158 H Lactic Acid Calcium Phosphorus Magnesium Total Bilirubin AST ALT Ammonia Lactate Dehydrogenase Total Creatine Kinase CK-MB (CK-2) Troponin T NT-Pro-B Natriuret Pep Total Protein Albumin Triglycerides TSH Arterial Blood Glucose Arterial Blood Ionized Calcium Urine pH Urine WBC (Auto) Urine Creatinine 10/28/20 10/28/20 10/28/20 09:00 11:47 17:15 WBC 12.5 H RBC 3.58 L Hgb 10.5 L Hct 32.1 L RDW Lymph % (Auto) [place] % (Auto) Lymph # (Auto) [place] # (Auto) Seg Neutrophils % Lymphocytes % (Manual) Monocytes % (Manual) Seg Neutrophils # Seg Neutrophils # Man Lymphocytes # (Manual) Monocytes # (Manual) D-Dimer Heparin Anti-Xa Level ABG pH POC ABG pCO2 POC ABG pO2 ABG pO2 ABG HCO3 ABG O2 Saturation ABG Base Excess ABG Hemoglobin ABG Oxyhemoglobin ABG Sodium ABG Potassium ABG Chloride ABG Glucose VBG pH Oxyhemoglobin Carboxyhemoglobin Sodium Potassium Chloride Carbon Dioxide BUN Creatinine Glucose POC Glucose 129 H 109 H Lactic Acid Calcium Phosphorus Magnesium Total Bilirubin AST ALT Ammonia Lactate Dehydrogenase Total Creatine Kinase CK-MB (CK-2) Troponin T NT-Pro-B Natriuret Pep Total Protein Albumin Triglycerides TSH Arterial Blood Glucose Arterial Blood Ionized Calcium Urine pH Urine WBC (Auto) Urine Creatinine 10/28/20 10/29/20 10/29/20 23:31 04:23 04:23 WBC 13.6 H RBC 3.47 L Hgb 10.5 L Hct 30.7 L RDW 15.4 H Lymph % (Auto) [place] % (Auto) Lymph # (Auto) [place] # (Auto) Seg Neutrophils % Lymphocytes % (Manual) Monocytes % (Manual) Seg Neutrophils # Seg Neutrophils # Man Lymphocytes # (Manual) Monocytes # (Manual) D-Dimer Heparin Anti-Xa Level ABG pH POC ABG pCO2 POC ABG pO2 ABG pO2 ABG HCO3 ABG O2 Saturation ABG Base Excess ABG Hemoglobin ABG Oxyhemoglobin ABG Sodium ABG Potassium ABG Chloride ABG Glucose VBG pH Oxyhemoglobin Carboxyhemoglobin Sodium Potassium Chloride Carbon Dioxide 35 H BUN 34 H Creatinine Glucose 107 H POC Glucose 138 H Lactic Acid Calcium Phosphorus Magnesium Total Bilirubin AST ALT Ammonia Lactate Dehydrogenase Total Creatine Kinase CK-MB (CK-2) Troponin T NT-Pro-B Natriuret Pep Total Protein Albumin Triglycerides TSH Arterial Blood Glucose Arterial Blood Ionized Calcium Urine pH Urine WBC (Auto) Urine Creatinine 10/29/20 10/29/20 05:21 11:49 WBC RBC Hgb Hct RDW Lymph % (Auto) [place] % (Auto) Lymph # (Auto) [place] # (Auto) Seg Neutrophils % Lymphocytes % (Manual) Monocytes % (Manual) Seg Neutrophils # Seg Neutrophils # Man Lymphocytes # (Manual) Monocytes # (Manual) D-Dimer Heparin Anti-Xa Level ABG pH POC ABG pCO2 POC ABG pO2 ABG pO2 ABG HCO3 ABG O2 Saturation ABG Base Excess ABG Hemoglobin ABG Oxyhemoglobin ABG Sodium ABG Potassium ABG Chloride ABG Glucose VBG pH Oxyhemoglobin Carboxyhemoglobin Sodium Potassium Chloride Carbon Dioxide BUN Creatinine Glucose POC Glucose 115 H 124 H Lactic Acid Calcium Phosphorus Magnesium Total Bilirubin AST ALT Ammonia Lactate Dehydrogenase Total Creatine Kinase CK-MB (CK-2) Troponin T NT-Pro-B Natriuret Pep Total Protein Albumin Triglycerides TSH Arterial Blood Glucose Arterial Blood Ionized Calcium Urine pH Urine WBC (Auto) Urine Creatinine Chest x-ray: other (none today) Allied health notes reviewed: nursing
[2020-10-29] MEDS: hydrALAZINE 20 MG/1 ML INJ IV PRN (14:44)
[2020-10-29] MEDS: fentaNYL 100 MCG/2 ML INJ IV PRN (14:45)
[2020-10-29] MEDS: levETIRAcetam 500 MG in DEXTROSE 5% IN WATER 100 ML IV SCH ×2 (17:33→17:34)
[2020-10-30] MEDS: GLYCOPYRROLATE 1 MG TAB PO SCH ×4 (01:11→19:54)
[2020-10-30] MEDS: hydrALAZINE 20 MG/1 ML INJ IV PRN (01:13)
[2020-10-30] MEDS: hydrALAZINE 25 MG TAB PO SCH ×3 (05:38→21:20)
[2020-10-30] MEDS ORDERED: ALTEPLASE 2 MG INJ IV ONE (05:45)
[2020-10-30 05:50] LABS: BUN/Creatinine Ratio 28; Blood Urea Nitrogen 33 mg/dL (9-20); Calcium 8.8 mg/dL (8.4-10.2); Hemolysis Index 12
[2020-10-30] MEDS ORDERED: WATER FOR INJ Sterile (PF) 10 ML ONE (08:39)
[2020-10-30] MEDS: METOPROLOL TARTRATE 50 MG TAB PO SCH ×3 (08:53→19:54)
[2020-10-30] MEDS: LANSOPRAZOLE 30 MG SOLUTAB FEEDTUBE SCH ×2 (09:00→21:20)
[2020-10-30] MEDS: amLODIPine 10 MG TAB PO SCH (09:00)
[2020-10-30] MEDS: HEPARIN 5,000 UNIT/1 ML VIAL SUB-Q SCH ×2 (09:00→21:20)
[2020-10-30] MEDS: DOCUSATE SODIUM 100 MG/10 ML ORAL LIQD PO SCH ×2 (09:00→21:20)
[2020-10-30] MEDS: POLYETHYLENE GLYCOL 3350 17 GM POWDER PO SCH (09:02)
[2020-10-30] MEDS ORDERED: ALTEPLASE 2 MG INJ ONE (09:12)
[2020-10-30] MEDS: levETIRAcetam 500 MG in DEXTROSE 5% IN WATER 100 ML IV SCH ×2 (10:15→18:36)
--- NOTE | 2020-10-30 11:10 | Progress Note ---
Assessment and Plan This is a 55-year-old male with hypertension, asthma, obesity who was admitted on 10/10 after cardiac arrest x2, sepsis, right-sided pneumonia, NSTEMI type II, acute heart failure, acute hypoxic respiratory failure, acute kidney injury and anoxic brain injury. Sepsis s/p multiple Cardiac Arrests Right-sided pneumonia MRSA in tracheal aspirate NSTEMI type II Acute heart failure Hypernatremia Afib/Alutter Leukocytosis Hyponatremia Acute hypoxic respiratory failure Acute kidney injury Transaminitis HTN Obesity -Infectious disease, CCM, GI, nephrology, cardiology, surgery consulted, appreciate recommendations -Antibiotic therapy -10/18 recultured (blood/sputum/nasal discharge and urinalysis), tracheal aspirate with MRSA -Linezolid -Continue antihypertensive regimen (changed to p.o.), titrate as needed -s/p IV amiodarone for A. fib/a flutter now on p.o. beta-shital -Trend CBC, BMP, LFT -Continue mechanical ventilation, wean as tolerated, VAP bundle -Avoid nephrotoxic medications, strict intake and output, renal ultrasound shows no obstruction -10/10 echocardiogram shows left internal systolic function normal, moderate concentric left ventricle hypertrophy, mild to side diastolic dysfunction, LVEF 55 to 60% with no pericardial effusion -Bilateral Doppler ultrasound negative for DVT/SVT which shows bilateral popliteal cysts -MRI Brain shows restricted diffusion and increased T2 signal cerebral cortex which can be seen in the setting of anoxic brain injury and/ or status epilepticus. -Repeat EEG shows significant generalized slowing compatible with to moderate severe diffuse neuropathy recently compatible with anoxic/ischemic encephalopathy -D5W at 50ml/hr x 1 liter GI/DVT prophylaxis: SCDs to bilateral lower extremities while in bed, PPI, Heparin subq Dispo: ICU/ possible LTACH The high probability of a clinically significant, sudden or life threatening deterioration of the [multi] system(s) required my full and direct attention, intervention and personal management. The aggregate critical care time was [35] minutes. This time is in addition to time spent performing reported procedures but includes the following: [x] Data Review and interpretation [x] Patient assessment and monitoring of vital signs [x] Documentation [x] Medication orders and management Brief History This is a 55-year-old male with hypertension, asthma, obesity in the emergency by presented to the emergency department on 10/10 after receiving a Covid vaccine being found unresponsive in his car in the emergency room bay with no pulse and ACLS protocol was initiated from his car to emergency room #21 where it was continued. Patient was intubated after ROSC was achieved and a central line was placed and the patient was initiated on pressors. In the emergency room patient seems to have seizure-like activity and then collapsed and was unresponsive with no palpable pulse and ACLS was again initiated patient with achievement of ROSC. Patient again coded with ACLS protocol in the CT room. Upon arrival to the ICU patient again coded and ROSC was achieved and he was placed on epinephrine, Lasix, heparin and sodium bicarbonate drip and sedated with propofol. An NG tube was placed, A-line was placed. Patient was admitted to the hospitalist service with consult to CCM, nephrology, infectious disease and cardiology. 10/11: Patient COVID-19 PCR is pending and he remains on mechanical ventilation, examination on assist control 400/30/12/0.95. Patient is scheduled for an echocardiogram and we will obtain bilateral lower extremity Doppler ultrasound given elevated D-dimer. Patient was supposed to have a CTA chest when he coded yesterday. We will begin trickle feeding. This morning patient was on a heparin drip and was noted to have bloody drainage from his NG tube. Heparin drip was discontinued. 10/12: Patient remains on propofol and Lasix drip at the time my examination and he is on assist control 400/25/12/0.60. Patient is hypokalemic this morning which was repleted. Nephrology discontinued Lasix drip and Diamox. Patient is hypertensive and has been started on hydralazine and beta-shital IV. He has been titrated off his vasopressors since yesterday. Vancomycin discontinued. Patient is currently on cefepime and azithromycin. 10/13: Sedation vacation attempted today and patient was not responsive to verbal or painful stimuli, does not track or focus or follow commands. This morning the patient has some respiratory alkalosis on ABG, hypernatremia and metabolic alkalosis on BMP. His kidney functions has improved slightly. Patient still has leukocytosis and infectious disease was like to continue antibiotic therapy. GI evaluated the patient yesterday and started the patient on PPI does not plan to scope at this time. At the time my examination patient assist-control 400/20/12/0.40 and sedated on propofol at 20. 4/2: GI has recommended a CT abdomen since there is increased output from OG tube and an MRI brain without contrast has been ordered per neurology recommendations. EEG is pending and the patient has been started on Keppra per neurology.. Nutrition has been consulted for initiation of parenteral nutrition. Patient remains sedated with propofol and his hypernatremia, leukocytosis, acute kidney injury and metabolic alkalosis is improving. Patient has hypokalemia today which was repleted. At the time of my examination patient was on assist control 400/14/10/0.40 and CCM has dropped his rate to 12 and PEEP to 8. We have labs ordered for a.m. He was given a clonidine patch given persistent hypertension and he remains on D5 water per nephrology. 10/15: This morning patient was started to have a low-grade fever and he will continue antibiotic therapy per infectious disease. He will remove Tuttle catheter today and place a condom cath. Patient's renal function is worsening with a BUN/creatinine of 57/2.4 today and he has hyperphosphatemia at 5.2. This morning the time my examination patient is sedated on fentanyl and has TPN infusing. He is on assist control 400/12/8/0.35. Per GI we will start trial of tube feedings initiation has been reconsulted for orders. 10/18: Patient was febrile overnight and infectious disease has recultured (blood/sputum/right nostril culture) and sent in urinalysis. Cefepime was extended due to high fever and was started on vancomycin. Tube feeding is at goal and we will discontinue his parenteral nutrition. Patient is unable to obtain his MRI due to increased hypoxia and nasal secretions. He will be started on CPAP trials today. This time I examination patient was sedated on f entanyl and had PPN running at 42. His renal function tests have worsened and now has hyperchloremia. Hypernatremia has resolved. 10/19: Patient's T-max was 100.2 and he was pancultured yesterday, remains on antibiotic therapy and still has copious drainage from his nostrils. Patient still has leukocytosis however his/creatinine improved slightly to 3.1 from 3.3. Patient's urinalysis from yesterday shows pyuria. Patient's tracheal aspirate from yesterday grew Staph aureus. Patient is on cefepime and vancomycin. 10/20: This morning at the time my examination patient was CPAP trial of 04/19 and his T-max was 100.9. Patient sedated on fentanyl at 2 just received IV push fentanyl for tachycardia. Today his creatinine is 2.8 from 3.1 yesterday. Infectious disease has stopped cefepime and vancomycin and started linezolid and MRSA PCR is pending. Today removed his NG tube and replaced it with OG tube. We will keep the patient normal saline at 75 mL's per hour for 3 L. Patient developed A. fib/a flutter overnight and cardiology has increased his Lopressor and IV amiodarone. We requested neurology evaluation today. 10/21: Cardiology we will increase Lopressor to 3 times daily and discontinue his amiodarone drip. Infectious disease would like a sinus CT when feasible however patient did have a moment of desatting earlier this week when we attempted MRI brain. And again yesterday when we attempted a "trial run" with positioning at bedside Patient is on linezolid for 10 days per ID. 10/22/20; patient was seen and evaluated this morning, patient had low-grade fever overnight. Patient is on Lopressor per cardiology recommendation. Patient did not follow commands, no improvement in mental status. Evaluated by neurology yesterday and neurology once MRI or CAT scan but cannot be done because patient desats when he lies flat. Patient is on linezolid per ID recommendation. Continue NG tube feeding. Continue with Keppra. Patient is on assist control with PEEP of 6. Management plan was discussed with his yesterday. 10/23/2020; patient is on Zyvox for positive MRSA from tracheal aspirate and nasal secretion culture. Patient's mentation did not improve and does not follow commands. He was reevaluated by neurology and recommend MRI once patient is able to tolerate. MRI could not be done, CT scan could not be done because the patient could not lie flat. Clinically patient looks like she has anoxic encephalopathy. Patient is on NG tube feeding and on mechanical ventilation. Patient is on Keppra. Management plan was discussed with his . 10/24: This morning the patient is on AC TV 400,R 16, Peep 6 and FiO2 of 30% and sedated on 1mcg of Fentayl. He is hypernatremic and his kidney function tests have slightly improved. RN will attempt to obtain MRI Brain today since the patient was able to tolerate a "trial run" of being flat. [facility] plans to resume CPAP trials once MRI obtained. 10/25: This morning the time of examination patient was on assist control tidal volume 400, rate 16, PEEP 6, FiO2 30% and he is currently on CPAP. His MRI brain finding is consistent with status epilepticus or anoxic brain injury. Patient is EEG pending. No acute overnight events reported. 10/26: Patient has been on a CPAP trial 14/6 which she has been tolerating. Surgery was consulted for trach/PEG. Patient's hypernatremia and hyperchloremia slightly better as well as his kidney functions. He has received cardiac clearance for his trach and PEG. No acute events reported overnight. Discussed with with clinical details by phone. 10/27: At the time my examination patient was on CPAP trial 15/6 and 30% FiO2. Patient's electrolyte abnormalities were improving and sources kidney function. His T-max overnight was 99.3 and he remains on linezolid. No acute events reported overnight. Called and mother in the conference call and updated with clinical details. 10/28: Yesterday patient had a trach and PEG placed bedside during. Patient etelvina ins n.p.o. as he has not been cleared by surgery to resume p.o. intake. Today he has slight leukocytosis which is likely reactive, hyponatremia, metabolic alkalosis however his kidney function continues to improve. No acute events overnight. 10/29: Plan to start tube feeding today, patient remains on mechanical ventilation with trach tube. Remains comatose without any change in mental status. Called and updated. 10/30: Vitals stable, patient remains on trach tube with ventilator. Tolerating tube feeding, otherwise clinically unchanged. Continue to provide supportive care and wean off from vent as tolerated. Hospitalist Physical General appearance: Present: no acute distress, well-nourished, other (Resting comfortably on mechanical ventilation, opens eye but does not track) - EENT Eyes: Present: PERRL, conjunctival injection ENT: clear oral mucosa - Neck Neck: Present: Trach in place - Respiratory Respiratory effort: On mechanical ventilation with trach tube Respiratory: bilateral: diminished - Cardiovascular Rhythm: regular Heart Sounds: Present: S1 & S2. Absent: systolic murmur, diastolic murmur - Extremities Extremities: no ischemia, pulses intact, pulses symmetrical, normal temperature, normal color Peripheral Pulses: within normal limits - Abdominal General gastrointestinal: soft, non-tender, non-distended, normal bowel sounds - Integumentary Integumentary: Present: warm, dry - Psychiatric Psychiatric: other (unresponsive to painful stimuli) - Neurologic Neurologic: other (unresponsive to painful stimuli) Subjective Date of service: 10/30/20 Principal diagnosis: Cardiac arrest; Septic Shock; Ac. hypoxemic & hypercapnic resp failure; MOE Interval history: Patient seen and examined No acute event overnight Vitals noted, discussed with RN Remains on track with the vent, tolerating tube feeding Objective - Constitutional Vitals: Vital Signs - 12hr 10/29/20 10/29/20 10/29/20 23:30 23:32 23:51 Temperature 100.0 F H Pulse Rate 73 72 Pulse Rate [ From Monitor] Respiratory 22 Rate Blood Pressure 115/61 115/61 O2 Sat by Pulse 100 100 Oximetry O2 Sat by Pulse Oximetry [ Assessment] 10/30/20 10/30/20 10/30/20 00:00 00:30 01:00 Temperature 100 F H Pulse Rate 78 81 89 Pulse Rate [ 85 From Monitor] Respiratory 24 27 H 29 H Rate Blood Pressure 149/71 149/71 149/71 O2 Sat by Pulse 99 98 98 Oximetry O2 Sat by Pulse 98 Oximetry [ Assessment] 10/30/20 10/30/20 10/30/20 01:30 02:00 02:30 Temperature Pulse Rate 74 73 74 Pulse Rate [ From Monitor] Respiratory 21 20 20 Rate Blood Pressure 140/64 131/62 131/62 O2 Sat by Pulse 98 98 97 Oximetry O2 Sat by Pulse Oximetry [ Assessment] 10/30/20 10/30/20 10/30/20 03:00 03:20 03:30 Temperature Pulse Rate 76 82 71 Pulse Rate [ From Monitor] Respiratory 21 20 Rate Blood Pressure 155/71 155/71 155/71 O2 Sat by Pulse 98 98 99 Oximetry O2 Sat by Pulse Oximetry [ Assessment] 10/30/20 10/30/20 10/30/20 04:00 04:30 05:00 Temperature 99.6 F Pulse Rate 67 70 75 Pulse Rate [ 85 From Monitor] Respiratory 20 19 21 Rate Blood Pressure 131/64 131/64 131/64 O2 Sat by Pulse 99 99 98 Oximetry O2 Sat by Pulse Oximetry [ Assessment] 10/30/20 10/30/20 10/30/20 05:30 06:00 07:47 Temperature 99.7 F H Pulse Rate 79 75 Pulse Rate [ From Monitor] Respiratory 22 25 H Rate Blood Pressure 146/75 156/81 O2 Sat by Pulse 99 99 Oximetry O2 Sat by Pulse Oximetry [ Assessment] 10/30/20 10/30/20 10/30/20 08:28 08:31 08:53 Temperature Pulse Rate 75 77 74 Pulse Rate [ From Monitor] Respiratory 21 Rate Blood Pressure 115/51 115/51 140/65 O2 Sat by Pulse 100 98 Oximetry O2 Sat by Pulse Oximetry [ Assessment] 10/30/20 09:00 Temperature Pulse Rate 74 Pulse Rate [ From Monitor] Respiratory Rate Blood Pressure 140/65 O2 Sat by Pulse Oximetry O2 Sat by Pulse Oximetry [ Assessment] - Labs CBC & Chem 7: 10/29/20 04:23 10/31/20 04:00 Labs: Abnormal lab results 10/29/20 10/29/20 10/30/20 Range/Units 11:49 23:19 04:59 Carbon Dioxide 34 H (22-30) mmol/L BUN 33 H (9-20) mg/dL Glucose 128 H (75-100) mg/dL POC Glucose 124 H 129 H (70-105) mg/dL 10/30/20 Range/Units 05:10 Carbon Dioxide (22-30) mmol/L BUN (9-20) mg/dL Glucose (75-100) mg/dL POC Glucose 126 H (70-105) mg/dL HEART Score - HEART Score EKG: Non-specific Age: 45-65 Troponin: Troponin T 0.125 ng/mL (0.00-0.029) H* D 10/12/20 04:00 Troponin: 1-3x normal limit - Critical Actions Critical Actions: 4-6 pts:12-16.6% risk of adverse cardiac event. Should be admitted
--- NOTE | 2020-10-30 12:50 | Progress Note ---
Assessment and Plan Cardiac arrest x3 with ROSC Severe septic and cardiogenic shock Acute respiratory failure with hypoxemia and hypercarbia Acute pulmonary edema MOE (acute kidney injury) Lactic acidosis, severe metabolic acidosis Bilateral pneumonia, aspiration pneumonia Elevated troponins - follow repeat CXR in am - begin t-piece trials in am as tolerated - continue contact precautions re: MRSA - continue care as below otherwise; - continue daily SAT's and SBT assessment as tolerated - de-escalate empiric anti-infective's per ID rec's (on Zyvox) - follow clinically re: fevers / WBC - Monitor hemodynamics closely - wean supplemental oxygen for target O2 sat's > 92% acutely - VAP bundle addressed - continue lung protective strategies - bronchodilators with pulmonary hygiene per RT - wean per pulmonary driven protocols otherwise - Monitor urine output closely - bicarbonate infusion - avoid nephrotoxins, renally dose all medications - continue to avoid benzodiazepine's, reduce the possibility of delirium - continue Scopolamine for secretion control - continue wound care per RN/WCN - prn analgesia per CPOT score - Maintenance of sleep-wake cycle, avoid delirium - continue enteral nutritional support at goal rate as tolerated - G.I. & VTE prophylaxis - PT/OT/ROM exercises - continue mobility protocols for pressure ulcer prophylaxis - Monitor hemodynamics closely - continue other care per attending / other consultants - discharge planning ongoing concurrently .... Re-evaluate in am & prn CONDITION: CRITICAL PROGNOSIS: GUARDED CODE STATUS: FULL CODE The high probability of a clinically significant, sudden or life-threatening deterioration of the [respiratory, cardiovascular & neurologic] system(s) required my full and direct attention, intervention and personal management. The aggregate critical care time was [34] minutes without overlap. Time includes spent on; [x] Data Review and interpretation [x] Patient assessment and monitoring of vital signs [x] Documentation [x] Medication orders and management Subjective Date of service: 10/30/20 Principal diagnosis: Cardiac arrest; Septic Shock; Ac. hypoxemic & hypercapnic resp failure; MOE Interval history: Patient is seen today for: Cardiac arrest with ROSC; Severe septic and cardi ogenic shock; Acute respiratory failure with hypoxemia and hypercarbia; Acute pulmonary edema; MOE; Lactic acidosis; severe metabolic acidosis; Bilateral pneumonia; aspiration pneumonia; Elevated troponins Seen and examined at bedside; 24hour events reviewed; nursing and respiratory care staff consulted; no adverse overnight events reported to me; resting peacefully in bed; tolerating SBT; AMS is persistent; no emesis or overt aspiration Objective Vital Signs - 12hr 10/30/20 10/30/20 10/30/20 01:00 01:30 02:00 Temperature Pulse Rate 89 74 73 Pulse Rate [ From Monitor] Respiratory 29 H 21 20 Rate Blood Pressure 149/71 140/64 131/62 O2 Sat by Pulse 98 98 98 Oximetry O2 Sat by Pulse 98 Oximetry [ Assessment] 10/30/20 10/30/20 10/30/20 02:30 03:00 03:20 Temperature Pulse Rate 74 76 82 Pulse Rate [ From Monitor] Respiratory 20 21 Rate Blood Pressure 131/62 155/71 155/71 O2 Sat by Pulse 97 98 98 Oximetry O2 Sat by Pulse Oximetry [ Assessment] 10/30/20 10/30/20 10/30/20 03:30 04:00 04:30 Temperature 99.6 F Pulse Rate 71 67 70 Pulse Rate [ 85 From Monitor] Respiratory 20 20 19 Rate Blood Pressure 155/71 131/64 131/64 O2 Sat by Pulse 99 99 99 Oximetry O2 Sat by Pulse Oximetry [ Assessment] 10/30/20 10/30/20 10/30/20 05:00 05:30 06:00 Temperature Pulse Rate 75 79 75 Pulse Rate [ From Monitor] Respiratory 21 22 25 H Rate Blood Pressure 131/64 146/75 156/81 O2 Sat by Pulse 98 99 99 Oximetry O2 Sat by Pulse Oximetry [ Assessment] 10/30/20 10/30/20 10/30/20 07:47 08:28 08:31 Temperature 99.7 F H Pulse Rate 75 77 Pulse Rate [ From Monitor] Respiratory 21 Rate Blood Pressure 115/51 115/51 O2 Sat by Pulse 100 98 Oximetry O2 Sat by Pulse Oximetry [ Assessment] 10/30/20 10/30/20 10/30/20 08:53 09:00 12:26 Temperature 99.2 F Pulse Rate 74 74 Pulse Rate [ From Monitor] Respiratory Rate Blood Pressure 140/65 140/65 O2 Sat by Pulse Oximetry O2 Sat by Pulse Oximetry [ Assessment] 10/30/20 12:28 Temperature Pulse Rate 68 Pulse Rate [ From Monitor] Respiratory Rate Blood Pressure 147/79 O2 Sat by Pulse 98 Oximetry O2 Sat by Pulse Oximetry [ Assessment] Constitutional: appears uncomfortable, other (middle aged obese male with mildly increased respiratory efort at rest) Eyes: non-icteric ENT: oropharynx moist, other (midline tracheostomy) Neck: supple, no lymphadenopathy, no JVD Effort: mildly labored Ascultation: Bilateral: diminished breath sounds, rhonchi Percussion: Bilateral: not dull Cardiovascular: regular rate and rhythm, other (S1,S2) Gastrointestinal: normoactive bowel sounds, soft, non-tender, non-distended (protuberant) Integumentary: normal Extremities: no cyanosis, no edema, pulses normal, no ischemia or petechiae Neurologic: pupils equal and round, unable to assess Psychiatric: other (unable to assess re: AMS) CBC and BMP: 10/29/20 04:23 10/31/20 04:00 ABG, PT/INR, D-dimer: ABG ABG pH 7.424 (7.320-7.450) 10/25/20 18:10 POC ABG pCO2 52.3 mmHg (32.0-48.0) H 10/25/20 18:10 ABG pCO2 55.5 mm Hg 10/16/20 05:10 POC ABG pO2 97.1 mmHg (83-108) 10/25/20 18:10 ABG pO2 104.5 mm Hg (80.0-90.0) H 10/16/20 05:10 POC ABG HCO3 33.5 10/25/20 18:10 ABG O2 Saturation 97.4 (0-100) 10/25/20 18:10 PT/INR, D-dimer PT 13.5 Sec. (12.2-14.9) 10/28/20 07:00 INR 1.05 (0.87-1.13) 10/28/20 07:00 D-Dimer 679.5 ng/mlDDU (0-234) H 10/10/20 10:48 Abnormal lab findings: Abnormal Labs 10/10/20 10/10/20 10/10/20 10:46 10:46 10:46 WBC RBC Hgb Hct RDW Lymph % (Auto) [place] % (Auto) Lymph # (Auto) [place] # (Auto) Seg Neutrophils % Lymphocytes % (Manual) Monocytes % (Manual) Seg Neutrophils # Seg Neutrophils # Man Lymphocytes # (Manual) Monocytes # (Manual) D-Dimer Heparin Anti-Xa Level ABG pH POC ABG pCO2 POC ABG pO2 ABG pO2 ABG HCO3 ABG O2 Saturation ABG Base Excess ABG Hemoglobin ABG Oxyhemoglobin ABG Sodium ABG Potassium ABG Chloride ABG Glucose VBG pH Oxyhemoglobin Carboxyhemoglobin Sodium Potassium Chloride Carbon Dioxide BUN Creatinine Glucose POC Glucose Lactic Acid 13.60 H* Calcium Phosphorus Magnesium Total Bilirubin AST ALT Ammonia 214.0 H Lactate Dehydrogenase Total Creatine Kinase CK-MB (CK-2) Troponin T NT-Pro-B Natriuret Pep Total Protein Albumin Triglycerides TSH 6.260 H Arterial Blood Glucose Arterial Blood Ionized Calcium Urine pH Urine WBC (Auto) Urine Creatinine 10/10/20 10/10/20 10/10/20 10:46 10:48 10:48 WBC RBC 5.28 H Hgb 15.5 H Hct 48.8 H RDW Lymph % (Auto) [place] % (Auto) Lymph # (Auto) [place] # (Auto) Seg Neutrophils % Lymphocytes % (Manual) 42.0 H Monocytes % (Manual) Seg Neutrophils # Seg Neutrophils # Man Lymphocytes # (Manual) Monocytes # (Manual) D-Dimer Heparin Anti-Xa Level ABG pH POC ABG pCO2 POC ABG pO2 ABG pO2 ABG HCO3 ABG O2 Saturation ABG Base Excess ABG Hemoglobin ABG Oxyhemoglobin ABG Sodium ABG Potassium ABG Chloride ABG Glucose VBG pH Oxyhemoglobin Carboxyhemoglobin Sodium Potassium 3.3 L Chloride 91.2 L Carbon Dioxide BUN Creatinine 1.8 H Glucose 231 H POC Glucose Lactic Acid Calcium Phosphorus Magnesium Total Bilirubin AST 60 H ALT 57 H Ammonia Lactate Dehydrogenase Total Creatine Kinase CK-MB (CK-2) Troponin T NT-Pro-B Natriuret Pep 1187 H Total Protein 9.0 H Albumin Triglycerides TSH Arterial Blood Glucose Arterial Blood Ionized Calcium Urine pH Urine WBC (Auto) Urine Creatinine 10/10/20 10/10/20 10/10/20 10:48 10:48 10:48 WBC RBC Hgb Hct RDW Lymph % (Auto) [place] % (Auto) Lymph # (Auto) [place] # (Auto) Seg Neutrophils % Lymphocytes % (Manual) Monocytes % (Manual) Seg Neutrophils # Seg Neutrophils # Man Lymphocytes # (Manual) Monocytes # (Manual) D-Dimer 679.5 H Heparin Anti-Xa Level ABG pH POC ABG pCO2 POC ABG pO2 ABG pO2 ABG HCO3 ABG O2 Saturation ABG Base Excess ABG Hemoglobin ABG Oxyhemoglobin ABG Sodium ABG Potassium ABG Chloride ABG Glucose VBG pH 6.870 L* Oxyhemoglobin Carboxyhemoglobin Sodium Potassium Chloride Carbon Dioxide BUN Creatinine Glucose POC Glucose Lactic Acid Calcium Phosphorus Magnesium Total Bilirubin AST ALT Ammonia Lactate Dehydrogenase 386 H Total Creatine Kinase CK-MB (CK-2) Troponin T NT-Pro-B Natriuret Pep Total Protein Albumin Triglycerides TSH Arterial Blood Glucose Arterial Blood Ionized Calcium Urine pH Urine WBC (Auto) Urine Creatinine 10/10/20 10/10/20 10/10/20 14:10 14:20 15:50 WBC RBC Hgb Hct RDW Lymph % (Auto) [place] % (Auto) Lymph # (Auto) [place] # (Auto) Seg Neutrophils % Lymphocytes % (Manual) Monocytes % (Manual) Seg Neutrophils # Seg Neutrophils # Man Lymphocytes # (Manual) Monocytes # (Manual) D-Dimer Heparin Anti-Xa Level ABG pH 7.175 L 7.247 L POC ABG pCO2 85.0 H POC ABG pO2 43.7 L ABG pO2 60.3 L ABG HCO3 32.0 H ABG O2 Saturation 86.1 L ABG Base Excess ABG Hemoglobin ABG Oxyhemoglobin 67.7 L ABG Sodium ABG Potassium ABG Chloride ABG Glucose 247 H VBG pH Oxyhemoglobin 84.4 L Carboxyhemoglobin Sodium Potassium Chloride Carbon Dioxide BUN Creatinine Glucose POC Glucose Lactic Acid 4.00 H* Calcium Phosphorus Magnesium Total Bilirubin AST ALT Ammonia Lactate Dehydrogenase Total Creatine Kinase CK-MB (CK-2) Troponin T NT-Pro-B Natriuret Pep Total Protein Albumin Triglycerides TSH Arterial Blood Glucose 247 H Arterial Blood Ionized Calcium 4.4 L Urine pH Urine WBC (Auto) Urine Creatinine 10/10/20 10/10/20 10/10/20 15:50 16:22 18:18 WBC RBC Hgb Hct RDW Lymph % (Auto) [place] % (Auto) Lymph # (Auto) [place] # (Auto) Seg Neutrophils % Lymphocytes % (Manual) Monocytes % (Manual) Seg Neutrophils # Seg Neutrophils # Man Lymphocytes # (Manual) Monocytes # (Manual) D-Dimer Heparin Anti-Xa Level ABG pH 7.171 L POC ABG pCO2 96.6 H POC ABG pO2 55.3 L ABG pO2 ABG HCO3 ABG O2 Saturation ABG Base Excess ABG Hemoglobin ABG Oxyhemoglobin 81.4 L ABG Sodium ABG Potassium ABG Chloride ABG Glucose 115 H VBG pH Oxyhemoglobin Carboxyhemoglobin Sodium Potassium Chloride Carbon Dioxide BUN Creatinine Glucose POC Glucose 132 H Lactic Acid Calcium Phosphorus Magnesium Total Bilirubin AST ALT Ammonia Lactate Dehydrogenase Total Creatine Kinase 1192 H CK-MB (CK-2) 21.7 H Troponin T 0.377 H* D NT-Pro-B Natriuret Pep Total Protein Albumin Triglycerides TSH Arterial Blood Glucose 115 H Arterial Blood Ionized Calcium Urine pH Urine WBC (Auto) Urine Creatinine 10/10/20 10/10/20 10/10/20 18:18 18:18 22:49 WBC 23.0 H RBC 5.12 H Hgb Hct RDW Lymph % (Auto) [place] % (Auto) Lymph # (Auto) [place] # (Auto) Seg Neutrophils % Lymphocytes % (Manual) 4.0 L Monocytes % (Manual) 9.0 H Seg Neutrophils # Seg Neutrophils # Man 13.8 H Lymphocytes # (Manual) 0.9 L Monocytes # (Manual) 2.1 H D-Dimer Heparin Anti-Xa Level ABG pH POC ABG pCO2 POC ABG pO2 ABG pO2 ABG HCO3 ABG O2 Saturation ABG Base Excess ABG Hemoglobin ABG Oxyhemoglobin ABG Sodium ABG Potassium ABG Chloride ABG Glucose VBG pH Oxyhemoglobin Carboxyhemoglobin Sodium 146 H Potassium Chloride Carbon Dioxide 34 H D BUN 27 H Creatinine 2.7 H Glucose 102 H POC Glucose Lactic Acid Calcium Phosphorus Magnesium Total Bilirubin AST 90 H ALT 66 H Ammonia Lactate Dehydrogenase Total Creatine Kinase CK-MB (CK-2) Troponin T 0.273 H* D NT-Pro-B Natriuret Pep Total Protein Albumin Triglycerides TSH Arterial Blood Glucose Arterial Blood Ionized Calcium Urine pH Urine WBC (Auto) Urine Creatinine 10/11/20 10/11/20 10/11/20 02:00 02:00 02:00 WBC 17.3 H RBC Hgb Hct RDW Lymph % (Auto) 3.9 L [place] % (Auto) Lymph # (Auto) 0.7 L [place] # (Auto) Seg Neutrophils % 93.0 H Lymphocytes % (Manual) Monocytes % (Manual) Seg Neutrophils # 16.1 H Seg Neutrophils # Man Lymphocytes # (Manual) Monocytes # (Manual) D-Dimer Heparin Anti-Xa Level ABG pH POC ABG pCO2 POC ABG pO2 ABG pO2 ABG HCO3 ABG O2 Saturation ABG Base Excess ABG Hemoglobin ABG Oxyhemoglobin ABG Sodium ABG Potassium ABG Chloride ABG Glucose VBG pH Oxyhemoglobin Carboxyhemoglobin Sodium 149 H Potassium 3.3 L Chloride 95.3 L Carbon Dioxide 37 H BUN 29 H Creatinine 2.6 H Glucose POC Glucose Lactic Acid Calcium Phosphorus Magnesium Total Bilirubin AST 80 H ALT 59 H Ammonia Lactate Dehydrogenase Total Creatine Kinase CK-MB (CK-2) Troponin T 0.201 H* D NT-Pro-B Natriuret Pep Total Protein Albumin 3.6 L Triglycerides TSH Arterial Blood Glucose Arterial Blood Ionized Calcium Urine pH Urine WBC (Auto) Urine Creatinine 10/11/20 10/11/20 10/11/20 03:51 08:35 11:15 WBC RBC Hgb Hct RDW Lymph % (Auto) [place] % (Auto) Lymph # (Auto) [place] # (Auto) Seg Neutrophils % Lymphocytes % (Manual) Monocytes % (Manual) Seg Neutrophils # Seg Neutrophils # Man Lymphocytes # (Manual) Monocytes # (Manual) D-Dimer Heparin Anti-Xa Level 0.22 L ABG pH 7.491 H POC ABG pCO2 57.6 H POC ABG pO2 ABG pO2 ABG HCO3 ABG O2 Saturation ABG Base Excess ABG Hemoglobin ABG Oxyhemoglobin ABG Sodium 150.0 H ABG Potassium 3.1 L ABG Chloride 96.0 L ABG Glucose 122 H VBG pH Oxyhemoglobin Carboxyhemoglobin Sodium Potassium Chloride Carbon Dioxide BUN Creatinine Glucose POC Glucose 151 H Lactic Acid Calcium Phosphorus Magnesium Total Bilirubin AST ALT Ammonia Lactate Dehydrogenase Total Creatine Kinase CK-MB (CK-2) Troponin T NT-Pro-B Natriuret Pep Total Protein Albumin Triglycerides TSH Arterial Blood Glucose 122 H Arterial Blood Ionized Calcium 3.9 L Urine pH Urine WBC (Auto) Urine Creatinine 10/11/20 10/11/20 10/11/20 13:30 13:30 13:30 WBC 15.0 H RBC Hgb Hct RDW Lymph % (Auto) [place] % (Auto) Lymph # (Auto) [place] # (Auto) Seg Neutrophils % Lymphocytes % (Manual) Monocytes % (Manual) Seg Neutrophils # Seg Neutrophils # Man Lymphocytes # (Manual) Monocytes # (Manual) D-Dimer Heparin Anti-Xa Level ABG pH POC ABG pCO2 POC ABG pO2 ABG pO2 ABG HCO3 ABG O2 Saturation ABG Base Excess ABG Hemoglobin ABG Oxyhemoglobin ABG Sodium ABG Potassium ABG Chloride ABG Glucose VBG pH Oxyhemoglobin Carboxyhemoglobin Sodium Potassium Chloride Carbon Dioxide BUN Creatinine Glucose POC Glucose Lactic Acid Calcium Phosphorus Magnesium Total Bilirubin AST ALT Ammonia Lactate Dehydrogenase Total Creatine Kinase CK-MB (CK-2) Troponin T NT-Pro-B Natriuret Pep Total Protein Albumin Triglycerides TSH Arterial Blood Glucose Arterial Blood Ionized Calcium Urine pH 9.0 H Urine WBC (Auto) 18.0 H Urine Creatinine 80.5 H 10/11/20 10/11/20 10/12/20 17:17 23:14 03:53 WBC RBC Hgb Hct RDW Lymph % (Auto) [place] % (Auto) Lymph # (Auto) [place] # (Auto) Seg Neutrophils % Lymphocytes % (Manual) Monocytes % (Manual) Seg Neutrophils # Seg Neutrophils # Man Lymphocytes # (Manual) Monocytes # (Manual) D-Dimer Heparin Anti-Xa Level ABG pH 7.545 H POC ABG pCO2 54.6 H POC ABG pO2 231.9 H ABG pO2 ABG HCO3 ABG O2 Saturation ABG Base Excess ABG Hemoglobin ABG Oxyhemoglobin 98.5 H ABG Sodium 150.5 H ABG Potassium 3.2 L ABG Chloride 96.0 L ABG Glucose 148 H VBG pH Oxyhemoglobin Carboxyhemoglobin Sodium Potassium Chloride Carbon Dioxide BUN Creatinine Glucose POC Glucose 121 H 135 H Lactic Acid Calcium Phosphorus Magnesium Total Bilirubin AST ALT Ammonia Lactate Dehydrogenase Total Creatine Kinase CK-MB (CK-2) Troponin T NT-Pro-B Natriuret Pep Total Protein Albumin Triglycerides TSH Arterial Blood Glucose 148 H Arterial Blood Ionized Calcium 3.8 L Urine pH Urine WBC (Auto) Urine Creatinine 10/12/20 10/12/20 10/12/20 04:00 05:10 05:12 WBC 14.3 H RBC Hgb 11.6 L Hct 35.2 L RDW Lymph % (Auto) [place] % (Auto) Lymph # (Auto) [place] # (Auto) Seg Neutrophils % Lymphocytes % (Manual) Monocytes % (Manual) Seg Neutrophils # Seg Neutrophils # Man Lymphocytes # (Manual) Monocytes # (Manual) D-Dimer Heparin Anti-Xa Level ABG pH POC ABG pCO2 POC ABG pO2 ABG pO2 ABG HCO3 ABG O2 Saturation ABG Base Excess ABG Hemoglobin ABG Oxyhemoglobin ABG Sodium ABG Potassium ABG Chloride ABG Glucose VBG pH Oxyhemoglobin Carboxyhemoglobin Sodium 155 H Potassium 3.3 L Chloride 97.9 L Carbon Dioxide 47 H* D BUN 50 H Creatinine 3.4 H Glucose 146 H POC Glucose 137 H Lactic Acid Calcium 8.0 L Phosphorus Magnesium Total Bilirubin AST ALT Ammonia Lactate Dehydrogenase Total Creatine Kinase CK-MB (CK-2) Troponin T 0.125 H* D NT-Pro-B Natriuret Pep Total Protein Albumin Triglycerides TSH Arterial Blood Glucose Arterial Blood Ionized Calcium Urine pH Urine WBC (Auto) Urine Creatinine 10/12/20 10/12/20 10/12/20 11:39 16:01 19:49 WBC RBC Hgb Hct RDW Lymph % (Auto) [place] % (Auto) Lymph # (Auto) [place] # (Auto) Seg Neutrophils % Lymphocytes % (Manual) Monocytes % (Manual) Seg Neutrophils # Seg Neutrophils # Man Lymphocytes # (Manual) Monocytes # (Manual) D-Dimer Heparin Anti-Xa Level ABG pH POC ABG pCO2 POC ABG pO2 ABG pO2 ABG HCO3 ABG O2 Saturation ABG Base Excess ABG Hemoglobin ABG Oxyhemoglobin ABG Sodium ABG Potassium ABG Chloride ABG Glucose VBG pH Oxyhemoglobin Carboxyhemoglobin Sodium 157 H Potassium 3.3 L Chloride Carbon Dioxide 47 H* BUN 52 H Creatinine 3.0 H Glucose 137 H POC Glucose 138 H 119 H Lactic Acid Calcium 8.0 L Phosphorus Magnesium Total Bilirubin AST ALT Ammonia Lactate Dehydrogenase Total Creatine Kinase CK-MB (CK-2) Troponin T NT-Pro-B Natriuret Pep Total Protein Albumin Triglycerides TSH Arterial Blood Glucose Arterial Blood Ionized Calcium Urine pH Urine WBC (Auto) Urine Creatinine 10/12/20 10/13/20 10/13/20 23:37 02:28 04:52 WBC RBC Hgb Hct RDW Lymph % (Auto) [place] % (Auto) Lymph # (Auto) [place] # (Auto) Seg Neutrophils % Lymphocytes % (Manual) Monocytes % (Manual) Seg Neutrophils # Seg Neutrophils # Man Lymphocytes # (Manual) Monocytes # (Manual) D-Dimer Heparin Anti-Xa Level ABG pH 7.485 H POC ABG pCO2 57.1 H POC ABG pO2 ABG pO2 ABG HCO3 ABG O2 Saturation ABG Base Excess ABG Hemoglobin ABG Oxyhemoglobin ABG Sodium 152.4 H ABG Potassium ABG Chloride ABG Glucose 129 H VBG pH Oxyhemoglobin Carboxyhemoglobin Sodium 155 H Potassium Chloride Carbon Dioxide 45 H* BUN 52 H Creatinine 2.7 H Glucose 121 H POC Glucose 131 H Lactic Acid Calcium Phosphorus Magnesium 2.40 H Total Bilirubin AST ALT Ammonia Lactate Dehydrogenase Total Creatine Kinase CK-MB (CK-2) Troponin T NT-Pro-B Natriuret Pep Total Protein Albumin Triglycerides 278 H TSH Arterial Blood Glucose 129 H Arterial Blood Ionized Calcium 4.1 L Urine pH Urine WBC (Auto) Urine Creatinine 10/13/20 10/13/20 10/13/20 04:52 05:13 11:37 WBC 14.7 H RBC Hgb 11.7 L Hct RDW 15.8 H Lymph % (Auto) [place] % (Auto) Lymph # (Auto) [place] # (Auto) Seg Neutrophils % Lymphocytes % (Manual) Monocytes % (Manual) Seg Neutrophils # Seg Neutrophils # Man Lymphocytes # (Manual) Monocytes # (Manual) D-Dimer Heparin Anti-Xa Level ABG pH POC ABG pCO2 POC ABG pO2 ABG pO2 ABG HCO3 ABG O2 Saturation ABG Base Excess ABG Hemoglobin ABG Oxyhemoglobin ABG Sodium ABG Potassium ABG Chloride ABG Glucose VBG pH Oxyhemoglobin Carboxyhemoglobin Sodium Potassium Chloride Carbon Dioxide BUN Creatinine Glucose POC Glucose 116 H 116 H Lactic Acid Calcium Phosphorus Magnesium Total Bilirubin AST ALT Ammonia Lactate Dehydrogenase Total Creatine Kinase CK-MB (CK-2) Troponin T NT-Pro-B Natriuret Pep Total Protein Albumin Triglycerides TSH Arterial Blood Glucose Arterial Blood Ionized Calcium Urine pH Urine WBC (Auto) Urine Creatinine 10/13/20 10/14/20 10/14/20 17:50 03:45 04:46 WBC 11.1 H RBC Hgb Hct RDW 15.3 H Lymph % (Auto) [place] % (Auto) Lymph # (Auto) [place] # (Auto) Seg Neutrophils % Lymphocytes % (Manual) Monocytes % (Manual) Seg Neutrophils # Seg Neutrophils # Man Lymphocytes # (Manual) Monocytes # (Manual) D-Dimer Heparin Anti-Xa Level ABG pH POC ABG pCO2 59.6 H POC ABG pO2 ABG pO2 ABG HCO3 ABG O2 Saturation ABG Base Excess ABG Hemoglobin ABG Oxyhemoglobin ABG Sodium 151.4 H ABG Potassium 3.3 L ABG Chloride ABG Glucose 138 H VBG pH Oxyhemoglobin Carboxyhemoglobin 1.6 H Sodium Potassium Chloride Carbon Dioxide BUN Creatinine Glucose POC Glucose 140 H Lactic Acid Calcium Phosphorus Magnesium Total Bilirubin AST ALT Ammonia Lactate Dehydrogenase Total Creatine Kinase CK-MB (CK-2) Troponin T NT-Pro-B Natriuret Pep Total Protein Albumin Triglycerides TSH Arterial Blood Glucose 138 H Arterial Blood Ionized Calcium 4.5 L Urine pH Urine WBC (Auto) Urine Creatinine 10/14/20 10/14/20 10/14/20 04:46 05:10 11:11 WBC RBC Hgb Hct RDW Lymph % (Auto) [place] % (Auto) Lymph # (Auto) [place] # (Auto) Seg Neutrophils % Lymphocytes % (Manual) Monocytes % (Manual) Seg Neutrophils # Seg Neutrophils # Man Lymphocytes # (Manual) Monocytes # (Manual) D-Dimer Heparin Anti-Xa Level ABG pH POC ABG pCO2 POC ABG pO2 ABG pO2 ABG HCO3 ABG O2 Saturation ABG Base Excess ABG Hemoglobin ABG Oxyhemoglobin ABG Sodium ABG Potassium ABG Chloride ABG Glucose VBG pH Oxyhemoglobin Carboxyhemoglobin Sodium 152 H Potassium 3.5 L Chloride Carbon Dioxide 38 H D BUN 46 H Creatinine 2.3 H Glucose 127 H POC Glucose 116 H 114 H Lactic Acid Calcium Phosphorus Magnesium Total Bilirubin AST ALT Ammonia Lactate Dehydrogenase Total Creatine Kinase CK-MB (CK-2) Troponin T NT-Pro-B Natriuret Pep Total Protein Albumin Triglycerides TSH Arterial Blood Glucose Arterial Blood Ionized Calcium Urine pH Urine WBC (Auto) Urine Creatinine 10/14/20 10/14/20 10/15/20 18:53 23:23 04:12 WBC RBC Hgb Hct RDW Lymph % (Auto) [place] % (Auto) Lymph # (Auto) [place] # (Auto) Seg Neutrophils % Lymphocytes % (Manual) Monocytes % (Manual) Seg Neutrophils # Seg Neutrophils # Man Lymphocytes # (Manual) Monocytes # (Manual) D-Dimer Heparin Anti-Xa Level ABG pH POC ABG pCO2 POC ABG pO2 ABG pO2 ABG HCO3 ABG O2 Saturation ABG Base Excess ABG Hemoglobin ABG Oxyhemoglobin ABG Sodium ABG Potassium ABG Chloride ABG Glucose VBG pH Oxyhemoglobin Carboxyhemoglobin Sodium 149 H Potassium 3.2 L Chloride Carbon Dioxide 37 H BUN 40 H Creatinine 2.0 H Glucose 124 H POC Glucose 128 H 113 H Lactic Acid Calcium Phosphorus Magnesium Total Bilirubin AST ALT Ammonia Lactate Dehydrogenase Total Creatine Kinase CK-MB (CK-2) Troponin T NT-Pro-B Natriuret Pep Total Protein Albumin Triglycerides TSH Arterial Blood Glucose Arterial Blood Ionized Calcium Urine pH Urine WBC (Auto) Urine Creatinine 10/15/20 10/15/2021 04:22 11:39 17:36 WBC RBC Hgb Hct RDW Lymph % (Auto) [place] % (Auto) Lymph # (Auto) [place] # (Auto) Seg Neutrophils % Lymphocytes % (Manual) Monocytes % (Manual) Seg Neutrophils # Seg Neutrophils # Man Lymphocytes # (Manual) Monocytes # (Manual) D-Dimer Heparin Anti-Xa Level ABG pH POC ABG pCO2 POC ABG pO2 ABG pO2 115.0 H ABG HCO3 38.1 H ABG O2 Saturation ABG Base Excess 11.3 H ABG Hemoglobin 11.0 L ABG Oxyhemoglobin ABG Sodium ABG Potassium ABG Chloride ABG Glucose VBG pH Oxyhemoglobin Carboxyhemoglobin Sodium Potassium Chloride Carbon Dioxide BUN Creatinine Glucose POC Glucose 123 H 118 H Lactic Acid Calcium Phosphorus Magnesium Total Bilirubin AST ALT Ammonia Lactate Dehydrogenase Total Creatine Kinase CK-MB (CK-2) Troponin T NT-Pro-B Natriuret Pep Total Protein Albumin Triglycerides TSH Arterial Blood Glucose Arterial Blood Ionized Calcium Urine pH Urine WBC (Auto) Urine Creatinine 10/15/20 10/16/20 10/16/20 23:18 03:13 05:10 WBC RBC Hgb Hct RDW Lymph % (Auto) [place] % (Auto) Lymph # (Auto) [place] # (Auto) Seg Neutrophils % Lymphocytes % (Manual) Monocytes % (Manual) Seg Neutrophils # Seg Neutrophils # Man Lymphocytes # (Manual) Monocytes # (Manual) D-Dimer Heparin Anti-Xa Level ABG pH POC ABG pCO2 POC ABG pO2 ABG pO2 104.5 H ABG HCO3 35.1 H ABG O2 Saturation ABG Base Excess 9.5 H ABG Hemoglobin 7.9 L ABG Oxyhemoglobin ABG Sodium ABG Potassium ABG Chloride ABG Glucose VBG pH Oxyhemoglobin Carboxyhemoglobin Sodium Potassium 3.3 L Chloride Carbon Dioxide 33 H BUN 37 H Creatinine 1.4 H Glucose 148 H POC Glucose 135 H Lactic Acid Calcium Phosphorus Magnesium 2.40 H Total Bilirubin AST ALT Ammonia Lactate Dehydrogenase Total Creatine Kinase CK-MB (CK-2) Troponin T NT-Pro-B Natriuret Pep Total Protein Albumin Triglycerides TSH Arterial Blood Glucose Arterial Blood Ionized Calcium Urine pH Urine WBC (Auto) Urine Creatinine 10/16/20 10/16/20 10/16/20 06:36 11:08 17:07 WBC RBC Hgb Hct RDW Lymph % (Auto) [place] % (Auto) Lymph # (Auto) [place] # (Auto) Seg Neutrophils % Lymphocytes % (Manual) Monocytes % (Manual) Seg Neutrophils # Seg Neutrophils # Man Lymphocytes # (Manual) Monocytes # (Manual) D-Dimer Heparin Anti-Xa Level ABG pH POC ABG pCO2 POC ABG pO2 ABG pO2 ABG HCO3 ABG O2 Saturation ABG Base Excess ABG Hemoglobin ABG Oxyhemoglobin ABG Sodium ABG Potassium ABG Chloride ABG Glucose VBG pH Oxyhemoglobin Carboxyhemoglobin Sodium Potassium Chloride Carbon Dioxide BUN Creatinine Glucose POC Glucose 150 H 111 H 132 H Lactic Acid Calcium Phosphorus Magnesium Total Bilirubin AST ALT Ammonia Lactate Dehydrogenase Total Creatine Kinase CK-MB (CK-2) Troponin T NT-Pro-B Natriuret Pep Total Protein Albumin Triglycerides TSH Arterial Blood Glucose Arterial Blood Ionized Calcium Urine pH Urine WBC (Auto) Urine Creatinine 10/16/20 10/17/20 10/17/20 23:38 03:32 03:32 WBC RBC Hgb Hct RDW Lymph % (Auto) [place] % (Auto) Lymph # (Auto) [place] # (Auto) Seg Neutrophils % Lymphocytes % (Manual) Monocytes % (Manual) Seg Neutrophils # Seg Neutrophils # Man Lymphocytes # (Manual) Monocytes # (Manual) D-Dimer Heparin Anti-Xa Level ABG pH POC ABG pCO2 POC ABG pO2 ABG pO2 ABG HCO3 ABG O2 Saturation ABG Base Excess ABG Hemoglobin ABG Oxyhemoglobin ABG Sodium ABG Potassium ABG Chloride ABG Glucose VBG pH Oxyhemoglobin Carboxyhemoglobin Sodium 146 H Potassium Chloride Carbon Dioxide 32 H BUN 57 H Creatinine 2.4 H D Glucose 124 H POC Glucose 117 H Lactic Acid Calcium Phosphorus 5.20 H D Magnesium Total Bilirubin AST ALT Ammonia Lactate Dehydrogenase Total Creatine Kinase CK-MB (CK-2) Troponin T NT-Pro-B Natriuret Pep Total Protein Albumin Triglycerides TSH Arterial Blood Glucose Arterial Blood Ionized Calcium Urine pH Urine WBC (Auto) Urine Creatinine 10/17/20 10/17/20 10/18/20 05:10 17:33 00:13 WBC RBC Hgb Hct RDW Lymph % (Auto) [place] % (Auto) Lymph # (Auto) [place] # (Auto) Seg Neutrophils % Lymphocytes % (Manual) Monocytes % (Manual) Seg Neutrophils # Seg Neutrophils # Man Lymphocytes # (Manual) Monocytes # (Manual) D-Dimer Heparin Anti-Xa Level ABG pH POC ABG pCO2 POC ABG pO2 ABG pO2 ABG HCO3 ABG O2 Saturation ABG Base Excess ABG Hemoglobin ABG Oxyhemoglobin ABG Sodium ABG Potassium ABG Chloride ABG Glucose VBG pH Oxyhemoglobin Carboxyhemoglobin Sodium Potassium Chloride Carbon Dioxide BUN Creatinine Glucose POC Glucose 122 H 121 H 23 L Lactic Acid Calcium Phosphorus Magnesium Total Bilirubin AST ALT Ammonia Lactate Dehydrogenase Total Creatine Kinase CK-MB (CK-2) Troponin T NT-Pro-B Natriuret Pep Total Protein Albumin Triglycerides TSH Arterial Blood Glucose Arterial Blood Ionized Calcium Urine pH Urine WBC (Auto) Urine Creatinine 10/18/20 10/18/20 10/18/20 00:16 03:27 03:27 WBC RBC Hgb 11.7 L Hct RDW Lymph % (Auto) [place] % (Auto) Lymph # (Auto) [place] # (Auto) Seg Neutrophils % Lymphocytes % (Manual) Monocytes % (Manual) Seg Neutrophils # Seg Neutrophils # Man Lymphocytes # (Manual) Monocytes # (Manual) D-Dimer Heparin Anti-Xa Level ABG pH POC ABG pCO2 POC ABG pO2 ABG pO2 ABG HCO3 ABG O2 Saturation ABG Base Excess ABG Hemoglobin ABG Oxyhemoglobin ABG Sodium ABG Potassium ABG Chloride ABG Glucose VBG pH Oxyhemoglobin Carboxyhemoglobin Sodium Potassium Chloride 97.6 L Carbon Dioxide BUN 90 H Creatinine 3.3 H Glucose 146 H POC Glucose 134 H Lactic Acid Calcium Phosphorus Magnesium Total Bilirubin 1.70 H AST ALT Ammonia Lactate Dehydrogenase Total Creatine Kinase CK-MB (CK-2) Troponin T NT-Pro-B Natriuret Pep Total Protein Albumin 3.1 L Triglycerides TSH Arterial Blood Glucose Arterial Blood Ionized Calcium Urine pH Urine WBC (Auto) Urine Creatinine 10/18/20 10/18/20 10/18/20 05:09 11:19 17:15 WBC RBC Hgb Hct RDW Lymph % (Auto) [place] % (Auto) Lymph # (Auto) [place] # (Auto) Seg Neutrophils % Lymphocytes % (Manual) Monocytes % (Manual) Seg Neutrophils # Seg Neutrophils # Man Lymphocytes # (Manual) Monocytes # (Manual) D-Dimer Heparin Anti-Xa Level ABG pH POC ABG pCO2 POC ABG pO2 ABG pO2 ABG HCO3 ABG O2 Saturation ABG Base Excess ABG Hemoglobin ABG Oxyhemoglobin ABG Sodium ABG Potassium ABG Chloride ABG Glucose VBG pH Oxyhemoglobin Carboxyhemoglobin Sodium Potassium Chloride Carbon Dioxide BUN Creatinine Glucose POC Glucose 144 H 145 H 151 H Lactic Acid Calcium Phosphorus Magnesium Total Bilirubin AST ALT Ammonia Lactate Dehydrogenase Total Creatine Kinase CK-MB (CK-2) Troponin T NT-Pro-B Natriuret Pep Total Protein Albumin Triglycerides TSH Arterial Blood Glucose Arterial Blood Ionized Calcium Urine pH Urine WBC (Auto) Urine Creatinine 10/18/20 10/18/20 10/19/20 23:16 Unknown 04:55 WBC RBC Hgb Hct RDW Lymph % (Auto) [place] % (Auto) Lymph # (Auto) [place] # (Auto) Seg Neutrophils % Lymphocytes % (Manual) Monocytes % (Manual) Seg Neutrophils # Seg Neutrophils # Man Lymphocytes # (Manual) Monocytes # (Manual) D-Dimer Heparin Anti-Xa Level ABG pH POC ABG pCO2 POC ABG pO2 ABG pO2 ABG HCO3 ABG O2 Saturation ABG Base Excess ABG Hemoglobin ABG Oxyhemoglobin ABG Sodium ABG Potassium ABG Chloride ABG Glucose VBG pH Oxyhemoglobin Carboxyhemoglobin Sodium Potassium Chloride Carbon Dioxide BUN 104 H Creatinine 3.1 H Glucose 139 H POC Glucose 123 H Lactic Acid Calcium Phosphorus Magnesium Total Bilirubin AST ALT Ammonia Lactate Dehydrogenase Total Creatine Kinase CK-MB (CK-2) Troponin T NT-Pro-B Natriuret Pep Total Protein Albumin Triglycerides TSH Arterial Blood Glucose Arterial Blood Ionized Calcium Urine pH Urine WBC (Auto) 115.0 H Urine Creatinine 10/19/20 10/19/20 10/19/20 04:55 11:35 13:14 WBC 15.1 H RBC Hgb 11.1 L Hct 34.4 L RDW Lymph % (Auto) 4.2 L [place] % (Auto) 11.9 H Lymph # (Auto) 0.6 L [place] # (Auto) 1.8 H Seg Neutrophils % 82.0 H Lymphocytes % (Manual) Monocytes % (Manual) Seg Neutrophils # 12.4 H Seg Neutrophils # Man Lymphocytes # (Manual) Monocytes # (Manual) D-Dimer Heparin Anti-Xa Level ABG pH POC ABG pCO2 POC ABG pO2 ABG pO2 ABG HCO3 ABG O2 Saturation ABG Base Excess ABG Hemoglobin ABG Oxyhemoglobin ABG Sodium ABG Potassium ABG Chloride ABG Glucose VBG pH Oxyhemoglobin Carboxyhemoglobin Sodium Potassium Chloride Carbon Dioxide BUN Creatinine Glucose POC Glucose 136 H Lactic Acid Calcium Phosphorus Magnesium Total Bilirubin AST ALT Ammonia Lactate Dehydrogenase Total Creatine Kinase CK-MB (CK-2) Troponin T NT-Pro-B Natriuret Pep Total Protein Albumin Triglycerides TSH Arterial Blood Glucose Arterial Blood Ionized Calcium Urine pH Urine WBC (Auto) Urine Creatinine 93.7 H 10/19/20 10/19/20 10/20/20 17:53 23:39 04:30 WBC RBC Hgb Hct RDW Lymph % (Auto) [place] % (Auto) Lymph # (Auto) [place] # (Auto) Seg Neutrophils % Lymphocytes % (Manual) Monocytes % (Manual) Seg Neutrophils # Seg Neutrophils # Man Lymphocytes # (Manual) Monocytes # (Manual) D-Dimer Heparin Anti-Xa Level ABG pH POC ABG pCO2 POC ABG pO2 ABG pO2 ABG HCO3 ABG O2 Saturation ABG Base Excess ABG Hemoglobin ABG Oxyhemoglobin ABG Sodium ABG Potassium ABG Chloride ABG Glucose VBG pH Oxyhemoglobin Carboxyhemoglobin Sodium Potassium Chloride Carbon Dioxide BUN 104 H Creatinine 2.8 H Glucose 151 H POC Glucose 137 H 133 H Lactic Acid Calcium Phosphorus Magnesium Total Bilirubin AST ALT Ammonia Lactate Dehydrogenase Total Creatine Kinase CK-MB (CK-2) Troponin T NT-Pro-B Natriuret Pep Total Protein Albumin Triglycerides TSH Arterial Blood Glucose Arterial Blood Ionized Calcium Urine pH Urine WBC (Auto) Urine Creatinine 10/20/20 10/20/20 10/20/20 04:30 05:38 11:34 WBC 17.9 H RBC Hgb 11.7 L Hct RDW Lymph % (Auto) [place] % (Auto) Lymph # (Auto) [place] # (Auto) Seg Neutrophils % Lymphocytes % (Manual) Monocytes % (Manual) Seg Neutrophils # Seg Neutrophils # Man Lymphocytes # (Manual) Monocytes # (Manual) D-Dimer Heparin Anti-Xa Level ABG pH POC ABG pCO2 POC ABG pO2 ABG pO2 ABG HCO3 ABG O2 Saturation ABG Base Excess ABG Hemoglobin ABG Oxyhemoglobin ABG Sodium ABG Potassium ABG Chloride ABG Glucose VBG pH Oxyhemoglobin Carboxyhemoglobin Sodium Potassium Chloride Carbon Dioxide BUN Creatinine Glucose POC Glucose 164 H 148 H Lactic Acid Calcium Phosphorus Magnesium Total Bilirubin AST ALT Ammonia Lactate Dehydrogenase Total Creatine Kinase CK-MB (CK-2) Troponin T NT-Pro-B Natriuret Pep Total Protein Albumin Triglycerides TSH Arterial Blood Glucose Arterial Blood Ionized Calcium Urine pH Urine WBC (Auto) Urine Creatinine 10/20/20 10/20/20 10/20/20 17:40 20:20 23:29 WBC RBC Hgb Hct RDW Lymph % (Auto) [place] % (Auto) Lymph # (Auto) [place] # (Auto) Seg Neutrophils % Lymphocytes % (Manual) Monocytes % (Manual) Seg Neutrophils # Seg Neutrophils # Man Lymphocytes # (Manual) Monocytes # (Manual) D-Dimer Heparin Anti-Xa Level ABG pH 7.292 L POC ABG pCO2 68.5 H POC ABG pO2 ABG pO2 ABG HCO3 ABG O2 Saturation ABG Base Excess ABG Hemoglobin 11.6 L ABG Oxyhemoglobin ABG Sodium ABG Potassium ABG Chloride ABG Glucose 145 H VBG pH Oxyhemoglobin Carboxyhemoglobin Sodium Potassium Chloride Carbon Dioxide BUN Creatinine Glucose POC Glucose 130 H 136 H Lactic Acid Calcium Phosphorus Magnesium Total Bilirubin AST ALT Ammonia Lactate Dehydrogenase Total Creatine Kinase CK-MB (CK-2) Troponin T NT-Pro-B Natriuret Pep Total Protein Albumin Triglycerides TSH Arterial Blood Glucose 145 H Arterial Blood Ionized Calcium Urine pH Urine WBC (Auto) Urine Creatinine 10/21/20 10/21/20 10/21/20 04:20 06:26 06:30 WBC RBC Hgb Hct RDW Lymph % (Auto) [place] % (Auto) Lymph # (Auto) [place] # (Auto) Seg Neutrophils % Lymphocytes % (Manual) Monocytes % (Manual) Seg Neutrophils # Seg Neutrophils # Man Lymphocytes # (Manual) Monocytes # (Manual) D-Dimer Heparin Anti-Xa Level ABG pH 7.262 L POC ABG pCO2 72.4 H POC ABG pO2 81.6 L ABG pO2 ABG HCO3 ABG O2 Saturation ABG Base Excess ABG Hemoglobin 11.6 L ABG Oxyhemoglobin ABG Sodium ABG Potassium ABG Chloride ABG Glucose 140 H VBG pH Oxyhemoglobin Carboxyhemoglobin Sodium Potassium Chloride Carbon Dioxide 33 H BUN 104 H Creatinine 2.9 H Glucose 153 H POC Glucose 128 H Lactic Acid Calcium Phosphorus Magnesium Total Bilirubin AST ALT Ammonia Lactate Dehydrogenase Total Creatine Kinase CK-MB (CK-2) Troponin T NT-Pro-B Natriuret Pep Total Protein Albumin Triglycerides TSH Arterial Blood Glucose 140 H Arterial Blood Ionized Calcium Urine pH Urine WBC (Auto) Urine Creatinine 10/21/20 10/21/20 10/21/20 06:30 11:24 17:21 WBC 13.3 H RBC Hgb 10.7 L Hct 32.7 L RDW Lymph % (Auto) [place] % (Auto) Lymph # (Auto) [place] # (Auto) Seg Neutrophils % Lymphocytes % (Manual) Monocytes % (Manual) Seg Neutrophils # Seg Neutrophils # Man Lymphocytes # (Manual) Monocytes # (Manual) D-Dimer Heparin Anti-Xa Level ABG pH POC ABG pCO2 POC ABG pO2 ABG pO2 ABG HCO3 ABG O2 Saturation ABG Base Excess ABG Hemoglobin ABG Oxyhemoglobin ABG Sodium ABG Potassium ABG Chloride ABG Glucose VBG pH Oxyhemoglobin Carboxyhemoglobin Sodium Potassium Chloride Carbon Dioxide BUN Creatinine Glucose POC Glucose 178 H 138 H Lactic Acid Calcium Phosphorus Magnesium Total Bilirubin AST ALT Ammonia Lactate Dehydrogenase Total Creatine Kinase CK-MB (CK-2) Troponin T NT-Pro-B Natriuret Pep Total Protein Albumin Triglycerides TSH Arterial Blood Glucose Arterial Blood Ionized Calcium Urine pH Urine WBC (Auto) Urine Creatinine 10/22/20 10/22/20 10/22/20 00:05 04:30 06:15 WBC RBC Hgb Hct RDW Lymph % (Auto) [place] % (Auto) Lymph # (Auto) [place] # (Auto) Seg Neutrophils % Lymphocytes % (Manual) Monocytes % (Manual) Seg Neutrophils # Seg Neutrophils # Man Lymphocytes # (Manual) Monocytes # (Manual) D-Dimer Heparin Anti-Xa Level ABG pH 7.225 L POC ABG pCO2 76.6 H POC ABG pO2 ABG pO2 ABG HCO3 ABG O2 Saturation ABG Base Excess ABG Hemoglobin 11.1 L ABG Oxyhemoglobin ABG Sodium ABG Potassium ABG Chloride ABG Glucose 151 H VBG pH Oxyhemoglobin Carboxyhemoglobin Sodium Potassium Chloride Carbon Dioxide 32 H BUN 103 H Creatinine 2.7 H Glucose 151 H POC Glucose 135 H Lactic Acid Calcium Phosphorus Magnesium Total Bilirubin AST ALT Ammonia Lactate Dehydrogenase Total Creatine Kinase CK-MB (CK-2) Troponin T NT-Pro-B Natriuret Pep Total Protein Albumin Triglycerides TSH Arterial Blood Glucose 151 H Arterial Blood Ionized Calcium Urine pH Urine WBC (Auto) Urine Creatinine 10/22/20 10/22/20 10/22/20 06:18 11:34 11:44 WBC RBC Hgb Hct RDW Lymph % (Auto) [place] % (Auto) Lymph # (Auto) [place] # (Auto) Seg Neutrophils % Lymphocytes % (Manual) Monocytes % (Manual) Seg Neutrophils # Seg Neutrophils # Man Lymphocytes # (Manual) Monocytes # (Manual) D-Dimer Heparin Anti-Xa Level ABG pH 7.278 L POC ABG pCO2 67.8 H POC ABG pO2 ABG pO2 ABG HCO3 ABG O2 Saturation ABG Base Excess ABG Hemoglobin 10.2 L ABG Oxyhemoglobin ABG Sodium ABG Potassium ABG Chloride ABG Glucose 172 H VBG pH Oxyhemoglobin Carboxyhemoglobin Sodium Potassium Chloride Carbon Dioxide BUN Creatinine Glucose POC Glucose 137 H 147 H Lactic Acid Calcium Phosphorus Magnesium Total Bilirubin AST ALT Ammonia Lactate Dehydrogenase Total Creatine Kinase CK-MB (CK-2) Troponin T NT-Pro-B Natriuret Pep Total Protein Albumin Triglycerides TSH Arterial Blood Glucose 172 H Arterial Blood Ionized Calcium Urine pH Urine WBC (Auto) Urine Creatinine 10/22/20 10/22/20 10/23/20 17:40 23:55 05:11 WBC RBC Hgb Hct RDW Lymph % (Auto) [place] % (Auto) Lymph # (Auto) [place] # (Auto) Seg Neutrophils % Lymphocytes % (Manual) Monocytes % (Manual) Seg Neutrophils # Seg Neutrophils # Man Lymphocytes # (Manual) Monocytes # (Manual) D-Dimer Heparin Anti-Xa Level ABG pH POC ABG pCO2 63.6 H POC ABG pO2 81.2 L ABG pO2 ABG HCO3 ABG O2 Saturation ABG Base Excess ABG Hemoglobin 10.6 L ABG Oxyhemoglobin ABG Sodium ABG Potassium ABG Chloride 109.0 H ABG Glucose 149 H VBG pH Oxyhemoglobin Carboxyhemoglobin Sodium Potassium Chloride Carbon Dioxide BUN Creatinine Glucose POC Glucose 141 H 139 H Lactic Acid Calcium Phosphorus Magnesium Total Bilirubin AST ALT Ammonia Lactate Dehydrogenase Total Creatine Kinase CK-MB (CK-2) Troponin T NT-Pro-B Natriuret Pep Total Protein Albumin Triglycerides TSH Arterial Blood Glucose 149 H Arterial Blood Ionized Calcium Urine pH Urine WBC (Auto) Urine Creatinine 10/23/20 10/23/20 10/23/20 05:39 06:00 11:32 WBC RBC Hgb Hct RDW Lymph % (Auto) [place] % (Auto) Lymph # (Auto) [place] # (Auto) Seg Neutrophils % Lymphocytes % (Manual) Monocytes % (Manual) Seg Neutrophils # Seg Neutrophils # Man Lymphocytes # (Manual) Monocytes # (Manual) D-Dimer Heparin Anti-Xa Level ABG pH POC ABG pCO2 POC ABG pO2 ABG pO2 ABG HCO3 ABG O2 Saturation ABG Base Excess ABG Hemoglobin ABG Oxyhemoglobin ABG Sodium ABG Potassium ABG Chloride ABG Glucose VBG pH Oxyhemoglobin Carboxyhemoglobin Sodium 146 H Potassium Chloride Carbon Dioxide 35 H BUN 92 H Creatinine 2.0 H Glucose 144 H POC Glucose 139 H 176 H Lactic Acid Calcium Phosphorus Magnesium Total Bilirubin AST ALT Ammonia Lactate Dehydrogenase Total Creatine Kinase CK-MB (CK-2) Troponin T NT-Pro-B Natriuret Pep Total Protein Albumin Triglycerides TSH Arterial Blood Glucose Arterial Blood Ionized Calcium Urine pH Urine WBC (Auto) Urine Creatinine 10/23/20 10/23/20 10/24/20 11:34 17:55 05:33 WBC RBC Hgb Hct RDW Lymph % (Auto) [place] % (Auto) Lymph # (Auto) [place] # (Auto) Seg Neutrophils % Lymphocytes % (Manual) Monocytes % (Manual) Seg Neutrophils # Seg Neutrophils # Man Lymphocytes # (Manual) Monocytes # (Manual) D-Dimer Heparin Anti-Xa Level ABG pH POC ABG pCO2 POC ABG pO2 ABG pO2 ABG HCO3 ABG O2 Saturation ABG Base Excess ABG Hemoglobin ABG Oxyhemoglobin ABG Sodium ABG Potassium ABG Chloride ABG Glucose VBG pH Oxyhemoglobin Carboxyhemoglobin Sodium 147 H Potassium Chloride Carbon Dioxide 32 H BUN 76 H Creatinine 1.7 H Glucose 172 H POC Glucose 173 H 135 H Lactic Acid Calcium Phosphorus Magnesium Total Bilirubin AST ALT Ammonia Lactate Dehydrogenase Total Creatine Kinase CK-MB (CK-2) Troponin T NT-Pro-B Natriuret Pep Total Protein Albumin Triglycerides TSH Arterial Blood Glucose Arterial Blood Ionized Calcium Urine pH Urine WBC (Auto) Urine Creatinine 10/24/20 10/24/20 10/24/20 05:41 12:09 18:09 WBC RBC Hgb Hct RDW Lymph % (Auto) [place] % (Auto) Lymph # (Auto) [place] # (Auto) Seg Neutrophils % Lymphocytes % (Manual) Monocytes % (Manual) Seg Neutrophils # Seg Neutrophils # Man Lymphocytes # (Manual) Monocytes # (Manual) D-Dimer Heparin Anti-Xa Level ABG pH POC ABG pCO2 POC ABG pO2 ABG pO2 ABG HCO3 ABG O2 Saturation ABG Base Excess ABG Hemoglobin ABG Oxyhemoglobin ABG Sodium ABG Potassium ABG Chloride ABG Glucose VBG pH Oxyhemoglobin Carboxyhemoglobin Sodium Potassium Chloride Carbon Dioxide BUN Creatinine Glucose POC Glucose 156 H 154 H 132 H Lactic Acid Calcium Phosphorus Magnesium Total Bilirubin AST ALT Ammonia Lactate Dehydrogenase Total Creatine Kinase CK-MB (CK-2) Troponin T NT-Pro-B Natriuret Pep Total Protein Albumin Triglycerides TSH Arterial Blood Glucose Arterial Blood Ionized Calcium Urine pH Urine WBC (Auto) Urine Creatinine 10/24/20 10/25/20 10/25/20 23:39 05:29 08:55 WBC RBC Hgb Hct RDW Lymph % (Auto) [place] % (Auto) Lymph # (Auto) [place] # (Auto) Seg Neutrophils % Lymphocytes % (Manual) Monocytes % (Manual) Seg Neutrophils # Seg Neutrophils # Man Lymphocytes # (Manual) Monocytes # (Manual) D-Dimer Heparin Anti-Xa Level ABG pH POC ABG pCO2 POC ABG pO2 ABG pO2 ABG HCO3 ABG O2 Saturation ABG Base Excess ABG Hemoglobin ABG Oxyhemoglobin ABG Sodium ABG Potassium ABG Chloride ABG Glucose VBG pH Oxyhemoglobin Carboxyhemoglobin Sodium 150 H Potassium Chloride 108.3 H Carbon Dioxide 32 H BUN 57 H Creatinine 1.5 H Glucose 142 H POC Glucose 131 H 142 H Lactic Acid Calcium Phosphorus Magnesium Total Bilirubin AST ALT Ammonia Lactate Dehydrogenase Total Creatine Kinase CK-MB (CK-2) Troponin T NT-Pro-B Natriuret Pep Total Protein Albumin Triglycerides TSH Arterial Blood Glucose Arterial Blood Ionized Calcium Urine pH Urine WBC (Auto) Urine Creatinine 10/25/20 10/25/20 10/25/20 08:55 11:08 18:10 WBC 14.3 H RBC 3.57 L Hgb 10.3 L Hct 31.6 L RDW Lymph % (Auto) [place] % (Auto) Lymph # (Auto) [place] # (Auto) Seg Neutrophils % Lymphocytes % (Manual) Monocytes % (Manual) Seg Neutrophils # Seg Neutrophils # Man Lymphocytes # (Manual) Monocytes # (Manual) D-Dimer Heparin Anti-Xa Level ABG pH POC ABG pCO2 52.3 H POC ABG pO2 ABG pO2 ABG HCO3 ABG O2 Saturation ABG Base Excess ABG Hemoglobin 11.2 L ABG Oxyhemoglobin ABG Sodium ABG Potassium ABG Chloride 108.0 H ABG Glucose 167 H VBG pH Oxyhemoglobin Carboxyhemoglobin Sodium Potassium Chloride Carbon Dioxide BUN Creatinine Glucose POC Glucose 157 H Lactic Acid Calcium Phosphorus Magnesium Total Bilirubin AST ALT Ammonia Lactate Dehydrogenase Total Creatine Kinase CK-MB (CK-2) Troponin T NT-Pro-B Natriuret Pep Total Protein Albumin Triglycerides TSH Arterial Blood Glucose 167 H Arterial Blood Ionized Calcium Urine pH Urine WBC (Auto) Urine Creatinine 10/25/20 10/26/20 10/26/20 18:20 00:20 06:08 WBC RBC Hgb Hct RDW Lymph % (Auto) [place] % (Auto) Lymph # (Auto) [place] # (Auto) Seg Neutrophils % Lymphocytes % (Manual) Monocytes % (Manual) Seg Neutrophils # Seg Neutrophils # Man Lymphocytes # (Manual) Monocytes # (Manual) D-Dimer Heparin Anti-Xa Level ABG pH POC ABG pCO2 POC ABG pO2 ABG pO2 ABG HCO3 ABG O2 Saturation ABG Base Excess ABG Hemoglobin ABG Oxyhemoglobin ABG Sodium ABG Potassium ABG Chloride ABG Glucose VBG pH Oxyhemoglobin Carboxyhemoglobin Sodium Potassium Chloride Carbon Dioxide BUN Creatinine Glucose POC Glucose 127 H 108 H 119 H Lactic Acid Calcium Phosphorus Magnesium Total Bilirubin AST ALT Ammonia Lactate Dehydrogenase Total Creatine Kinase CK-MB (CK-2) Troponin T NT-Pro-B Natriuret Pep Total Protein Albumin Triglycerides TSH Arterial Blood Glucose Arterial Blood Ionized Calcium Urine pH Urine WBC (Auto) Urine Creatinine 10/26/20 10/26/20 10/26/20 07:38 07:38 11:28 WBC 13.5 H RBC 3.37 L Hgb 9.8 L Hct 30.0 L RDW Lymph % (Auto) [place] % (Auto) Lymph # (Auto) [place] # (Auto) Seg Neutrophils % Lymphocytes % (Manual) Monocytes % (Manual) Seg Neutrophils # Seg Neutrophils # Man Lymphocytes # (Manual) Monocytes # (Manual) D-Dimer Heparin Anti-Xa Level ABG pH POC ABG pCO2 POC ABG pO2 ABG pO2 ABG HCO3 ABG O2 Saturation ABG Base Excess ABG Hemoglobin ABG Oxyhemoglobin ABG Sodium ABG Potassium ABG Chloride ABG Glucose VBG pH Oxyhemoglobin Carboxyhemoglobin Sodium 149 H Potassium Chloride 107.6 H Carbon Dioxide 34 H BUN 49 H Creatinine 1.4 H Glucose 137 H POC Glucose 148 H Lactic Acid Calcium Phosphorus Magnesium Total Bilirubin AST ALT Ammonia Lactate Dehydrogenase Total Creatine Kinase CK-MB (CK-2) Troponin T NT-Pro-B Natriuret Pep Total Protein Albumin Triglycerides TSH Arterial Blood Glucose Arterial Blood Ionized Calcium Urine pH Urine WBC (Auto) Urine Creatinine 10/26/20 10/26/20 10/27/20 18:17 23:37 05:08 WBC RBC Hgb Hct RDW Lymph % (Auto) [place] % (Auto) Lymph # (Auto) [place] # (Auto) Seg Neutrophils % Lymphocytes % (Manual) Monocytes % (Manual) Seg Neutrophils # Seg Neutrophils # Man Lymphocytes # (Manual) Monocytes # (Manual) D-Dimer Heparin Anti-Xa Level ABG pH POC ABG pCO2 POC ABG pO2 ABG pO2 ABG HCO3 ABG O2 Saturation ABG Base Excess ABG Hemoglobin ABG Oxyhemoglobin ABG Sodium ABG Potassium ABG Chloride ABG Glucose VBG pH Oxyhemoglobin Carboxyhemoglobin Sodium Potassium Chloride Carbon Dioxide BUN Creatinine Glucose POC Glucose 121 H 152 H 120 H Lactic Acid Calcium Phosphorus Magnesium Total Bilirubin AST ALT Ammonia Lactate Dehydrogenase Total Creatine Kinase CK-MB (CK-2) Troponin T NT-Pro-B Natriuret Pep Total Protein Albumin Triglycerides TSH Arterial Blood Glucose Arterial Blood Ionized Calcium Urine pH Urine WBC (Auto) Urine Creatinine 10/27/20 10/27/20 10/27/20 07:30 07:30 11:59 WBC RBC 3.46 L Hgb 10.2 L Hct 30.9 L RDW Lymph % (Auto) [place] % (Auto) Lymph # (Auto) [place] # (Auto) Seg Neutrophils % Lymphocytes % (Manual) Monocytes % (Manual) Seg Neutrophils # Seg Neutrophils # Man Lymphocytes # (Manual) Monocytes # (Manual) D-Dimer Heparin Anti-Xa Level ABG pH POC ABG pCO2 POC ABG pO2 ABG pO2 ABG HCO3 ABG O2 Saturation ABG Base Excess ABG Hemoglobin ABG Oxyhemoglobin ABG Sodium ABG Potassium ABG Chloride ABG Glucose VBG pH Oxyhemoglobin Carboxyhemoglobin Sodium 146 H Potassium Chloride Carbon Dioxide 34 H BUN 45 H Creatinine Glucose 131 H POC Glucose 143 H Lactic Acid Calcium Phosphorus Magnesium Total Bilirubin AST ALT Ammonia Lactate Dehydrogenase Total Creatine Kinase CK-MB (CK-2) Troponin T NT-Pro-B Natriuret Pep Total Protein Albumin Triglycerides TSH Arterial Blood Glucose Arterial Blood Ionized Calcium Urine pH Urine WBC (Auto) Urine Creatinine 10/27/20 10/27/20 10/28/20 18:52 23:03 07:00 WBC RBC Hgb Hct RDW Lymph % (Auto) [place] % (Auto) Lymph # (Auto) [place] # (Auto) Seg Neutrophils % Lymphocytes % (Manual) Monocytes % (Manual) Seg Neutrophils # Seg Neutrophils # Man Lymphocytes # (Manual) Monocytes # (Manual) D-Dimer Heparin Anti-Xa Level ABG pH POC ABG pCO2 POC ABG pO2 ABG pO2 ABG HCO3 ABG O2 Saturation ABG Base Excess ABG Hemoglobin ABG Oxyhemoglobin ABG Sodium ABG Potassium ABG Chloride ABG Glucose VBG pH Oxyhemoglobin Carboxyhemoglobin Sodium 147 H Potassium Chloride Carbon Dioxide 35 H BUN 39 H Creatinine Glucose 133 H POC Glucose 119 H 158 H Lactic Acid Calcium Phosphorus Magnesium Total Bilirubin AST ALT Ammonia Lactate Dehydrogenase Total Creatine Kinase CK-MB (CK-2) Troponin T NT-Pro-B Natriuret Pep Total Protein Albumin Triglycerides TSH Arterial Blood Glucose Arterial Blood Ionized Calcium Urine pH Urine WBC (Auto) Urine Creatinine 10/28/20 10/28/20 10/28/20 09:00 11:47 17:15 WBC 12.5 H RBC 3.58 L Hgb 10.5 L Hct 32.1 L RDW Lymph % (Auto) [place] % (Auto) Lymph # (Auto) [place] # (Auto) Seg Neutrophils % Lymphocytes % (Manual) Monocytes % (Manual) Seg Neutrophils # Seg Neutrophils # Man Lymphocytes # (Manual) Monocytes # (Manual) D-Dimer Heparin Anti-Xa Level ABG pH POC ABG pCO2 POC ABG pO2 ABG pO2 ABG HCO3 ABG O2 Saturation ABG Base Excess ABG Hemoglobin ABG Oxyhemoglobin ABG Sodium ABG Potassium ABG Chloride ABG Glucose VBG pH Oxyhemoglobin Carboxyhemoglobin Sodium Potassium Chloride Carbon Dioxide BUN Creatinine Glucose POC Glucose 129 H 109 H Lactic Acid Calcium Phosphorus Magnesium Total Bilirubin AST ALT Ammonia Lactate Dehydrogenase Total Creatine Kinase CK-MB (CK-2) Troponin T NT-Pro-B Natriuret Pep Total Protein Albumin Triglycerides TSH Arterial Blood Glucose Arterial Blood Ionized Calcium Urine pH Urine WBC (Auto) Urine Creatinine 10/28/20 10/29/20 10/29/20 23:31 04:23 04:23 WBC 13.6 H RBC 3.47 L Hgb 10.5 L Hct 30.7 L RDW 15.4 H Lymph % (Auto) [place] % (Auto) Lymph # (Auto) [place] # (Auto) Seg Neutrophils % Lymphocytes % (Manual) Monocytes % (Manual) Seg Neutrophils # Seg Neutrophils # Man Lymphocytes # (Manual) Monocytes # (Manual) D-Dimer Heparin Anti-Xa Level ABG pH POC ABG pCO2 POC ABG pO2 ABG pO2 ABG HCO3 ABG O2 Saturation ABG Base Excess ABG Hemoglobin ABG Oxyhemoglobin ABG Sodium ABG Potassium ABG Chloride ABG Glucose VBG pH Oxyhemoglobin Carboxyhemoglobin Sodium Potassium Chloride Carbon Dioxide 35 H BUN 34 H Creatinine Glucose 107 H POC Glucose 138 H Lactic Acid Calcium Phosphorus Magnesium Total Bilirubin AST ALT Ammonia Lactate Dehydrogenase Total Creatine Kinase CK-MB (CK-2) Troponin T NT-Pro-B Natriuret Pep Total Protein Albumin Triglycerides TSH Arterial Blood Glucose Arterial Blood Ionized Calcium Urine pH Urine WBC (Auto) Urine Creatinine 10/29/20 10/29/20 10/29/20 05:21 11:49 23:19 WBC RBC Hgb Hct RDW Lymph % (Auto) [place] % (Auto) Lymph # (Auto) [place] # (Auto) Seg Neutrophils % Lymphocytes % (Manual) Monocytes % (Manual) Seg Neutrophils # Seg Neutrophils # Man Lymphocytes # (Manual) Monocytes # (Manual) D-Dimer Heparin Anti-Xa Level ABG pH POC ABG pCO2 POC ABG pO2 ABG pO2 ABG HCO3 ABG O2 Saturation ABG Base Excess ABG Hemoglobin ABG Oxyhemoglobin ABG Sodium ABG Potassium ABG Chloride ABG Glucose VBG pH Oxyhemoglobin Carboxyhemoglobin Sodium Potassium Chloride Carbon Dioxide BUN Creatinine Glucose POC Glucose 115 H 124 H 129 H Lactic Acid Calcium Phosphorus Magnesium Total Bilirubin AST ALT Ammonia Lactate Dehydrogenase Total Creatine Kinase CK-MB (CK-2) Troponin T NT-Pro-B Natriuret Pep Total Protein Albumin Triglycerides TSH Arterial Blood Glucose Arterial Blood Ionized Calcium Urine pH Urine WBC (Auto) Urine Creatinine 10/30/20 10/30/20 04:59 05:10 WBC RBC Hgb Hct RDW Lymph % (Auto) [place] % (Auto) Lymph # (Auto) [place] # (Auto) Seg Neutrophils % Lymphocytes % (Manual) Monocytes % (Manual) Seg Neutrophils # Seg Neutrophils # Man Lymphocytes # (Manual) Monocytes # (Manual) D-Dimer Heparin Anti-Xa Level ABG pH POC ABG pCO2 POC ABG pO2 ABG pO2 ABG HCO3 ABG O2 Saturation ABG Base Excess ABG Hemoglobin ABG Oxyhemoglobin ABG Sodium ABG Potassium ABG Chloride ABG Glucose VBG pH Oxyhemoglobin Carboxyhemoglobin Sodium Potassium Chloride Carbon Dioxide 34 H BUN 33 H Creatinine Glucose 128 H POC Glucose 126 H Lactic Acid Calcium Phosphorus Magnesium Total Bilirubin AST ALT Ammonia Lactate Dehydrogenase Total Creatine Kinase CK-MB (CK-2) Troponin T NT-Pro-B Natriuret Pep Total Protein Albumin Triglycerides TSH Arterial Blood Glucose Arterial Blood Ionized Calcium Urine pH Urine WBC (Auto) Urine Creatinine Chest x-ray: pending Allied health notes reviewed: nursing
[2020-10-30] MEDS: fentaNYL 100 MCG/2 ML INJ IV PRN (16:28)
[2020-10-30] MEDS: fentaNYL DRIP Premix 2,000 MCG/100 ML BAG IV SCH (20:45)
[2020-10-30] MEDS ORDERED: NORepinephrine/NS 4 MG-250 ML 0 MG/0 ML BAG IV ONE (22:46)
[2020-10-31] MEDS: GLYCOPYRROLATE 1 MG TAB PO SCH ×2 (01:13→14:38)
[2020-10-31] MEDS: hydrALAZINE 25 MG TAB PO SCH ×3 (05:25→21:13)
[2020-10-31 05:58] LABS: BUN/Creatinine Ratio 27; Blood Urea Nitrogen 32 mg/dL (9-20); Calcium 8.6 mg/dL (8.4-10.2); Hemolysis Index 0
[2020-10-31] MEDS: fentaNYL DRIP Premix 2,000 MCG/100 ML BAG IV SCH (09:16)
[2020-10-31] MEDS: GLYCOPYRROLATE 2 MG TAB PO SCH ×4 (09:17→23:06)
[2020-10-31] MEDS: METOPROLOL TARTRATE 50 MG TAB PO SCH ×3 (09:18→19:25)
[2020-10-31] MEDS: levETIRAcetam 500 MG/5 ML ORAL LIQD PO SCH ×2 (09:18→21:13)
[2020-10-31] MEDS: POLYETHYLENE GLYCOL 3350 17 GM POWDER PO SCH (09:18)
[2020-10-31] MEDS: DOCUSATE SODIUM 100 MG/10 ML ORAL LIQD PO SCH ×2 (09:18→21:13)
[2020-10-31] MEDS: amLODIPine 10 MG TAB PO SCH (09:18)
[2020-10-31] MEDS: LANSOPRAZOLE 30 MG SOLUTAB FEEDTUBE SCH ×2 (09:19→21:13)
[2020-10-31] MEDS: HEPARIN 5,000 UNIT/1 ML VIAL SUB-Q SCH ×2 (10:22→21:35)
[2020-10-31] MEDS ORDERED: fentaNYL 25 MCG/HR PATCH 72HR TD SCH ×2 (13:00→14:00)
[2020-10-31] MEDS: QUEtiapine 100 MG TAB PO SCH ×2 (13:08→21:12)
--- NOTE | 2020-10-31 13:36 | Progress Note ---
Assessment and Plan Cardiac arrest x3 with ROSC Severe septic and cardiogenic shock Acute respiratory failure with hypoxemia and hypercarbia Acute pulmonary edema MOE (acute kidney injury) Lactic acidosis, severe metabolic acidosis Bilateral pneumonia, aspiration pneumonia Elevated troponins - Add Seroquel for agitation - Robinul 2mg follow repeat CXR in am - begin t-piece trials in am as tolerated - continue contact precautions re: MRSA - continue care as below otherwise; - continue daily SAT's and SBT assessment as tolerated - de-escalate empiric anti-infective's per ID rec's (on Zyvox) - follow clinically re: fevers / WBC - Monitor hemodynamics closely - wean supplemental oxygen for target O2 sat's > 92% acutely - VAP bundle addressed - continue lung protective strategies - bronchodilators with pulmonary hygiene per RT - wean per pulmonary driven protocols otherwise - Monitor urine output closely - bicarbonate infusion - avoid nephrotoxins, renally dose all medications - continue to avoid benzodiazepine's, reduce the possibility of delirium - continue Scopolamine for secretion control - continue wound care per RN/WCN - prn analgesia per CPOT score - Maintenance of sleep-wake cycle, avoid delirium - continue enteral nutritional support at goal rate as tolerated - G.I. & VTE prophylaxis - PT/OT/ROM exercises - continue mobility protocols for pressure ulcer prophylaxis - Monitor hemodynamics closely - continue other care per attending / other consultants - discharge planning ongoing concurrently .... Re-evaluate in am & prn CONDITION: CRITICAL PROGNOSIS: GUARDED CODE STATUS: FULL CODE The high probability of a clinically significant, sudden or life-threatening deterioration of the [respiratory, cardiovascular & neurologic] system(s) required my full and direct attention, intervention and personal management. The aggregate critical care time was [34] minutes without overlap. Time includes spent on; [x] Data Review and interpretation [x] Patient assessment and monitoring of vital signs [x] Documentation [x] Medication orders and management Subjective Date of service: 10/31/20 Principal diagnosis: Cardiac arrest; Septic Shock; Ac. hypoxemic & hypercapnic resp failure; MOE Interval history: Patient is seen today for: Cardiac arrest with ROSC; Severe septic and cardiogenic shock; Acute respiratory failure with hypoxemia and hypercarbia; Acute pulmonary edema; MOE; Lactic acidosis; severe metabolic acidosis; Bilateral pneumonia; aspiration pneumonia; Elevated troponins Seen and examined at bedside; 24hour events reviewed; nursing and respiratory care staff consulted; no adverse overnight events reported to me; resting peacefully in bed; secretions large today & frothy; tolerating SBT; AMS is persistent; fentanyl drip resumed overnight due to agitation Objective Vital Signs - 12hr 10/31/20 10/31/20 10/31/20 02:00 02:30 03:00 Temperature Pulse Rate 63 66 70 Pulse Rate [ From Monitor] Respiratory 16 14 18 Rate Blood Pressure 141/73 137/83 156/79 O2 Sat by Pulse 100 100 100 Oximetry O2 Sat by Pulse Oximetry [ Assessment] 10/31/20 10/31/20 10/31/20 03:10 03:30 03:35 Temperature Pulse Rate 64 65 Pulse Rate [ From Monitor] Respiratory 15 Rate Blood Pressure 137/85 108/70 O2 Sat by Pulse 100 100 Oximetry O2 Sat by Pulse 100 Oximetry [ Assessment] 10/31/20 10/31/20 10/31/20 04:00 04:30 05:00 Temperature 99.1 F Pulse Rate 64 66 63 Pulse Rate [ 61 From Monitor] Respiratory 15 15 11 L Rate Blood Pressure 119/65 140/77 151/77 O2 Sat by Pulse 100 100 100 Oximetry O2 Sat by Pulse Oximetry [ Assessment] 10/31/20 10/31/20 10/31/20 05:25 05:30 06:01 Temperature Pulse Rate 63 67 66 Pulse Rate [ From Monitor] Respiratory 16 15 Rate Blood Pressure 151/77 157/92 109/58 O2 Sat by Pulse 100 100 Oximetry O2 Sat by Pulse Oximetry [ Assessment] 10/31/20 10/31/20 10/31/20 06:30 07:00 07:30 Temperature Pulse Rate 69 66 63 Pulse Rate [ From Monitor] Respiratory 14 13 13 Rate Blood Pressure 106/67 133/71 132/72 O2 Sat by Pulse 100 100 100 Oximetry O2 Sat by Pulse Oximetry [ Assessment] 10/31/20 10/31/20 10/31/20 08:00 08:28 08:30 Temperature 98.6 F Pulse Rate 65 70 66 Pulse Rate [ 85 From Monitor] Respiratory 12 13 Rate Blood Pressure 137/76 137/76 147/81 O2 Sat by Pulse 100 100 100 Oximetry O2 Sat by Pulse Oximetry [ Assessment] 10/31/20 10/31/20 10/31/20 08:31 09:00 09:18 Temperature Pulse Rate 68 65 73 Pulse Rate [ From Monitor] Respiratory 15 14 Rate Blood Pressure 147/81 151/81 151/81 O2 Sat by Pulse 100 100 Oximetry O2 Sat by Pulse Oximetry [ Assessment] 10/31/20 10/31/20 10/31/20 09:30 10:00 10:30 Temperature Pulse Rate 72 60 59 L Pulse Rate [ From Monitor] Respiratory 15 11 L 15 Rate Blood Pressure 154/80 126/69 138/73 O2 Sat by Pulse 100 99 98 Oximetry O2 Sat by Pulse Oximetry [ Assessment] 10/31/20 10/31/20 10/31/20 11:00 11:30 12:00 Temperature 98.2 F Pulse Rate 58 L 59 L 59 L Pulse Rate [ 85 From Monitor] Respiratory 11 L 14 14 Rate Blood Pressure 138/73 142/73 142/73 O2 Sat by Pulse 100 100 99 Oximetry O2 Sat by Pulse Oximetry [ Assessment] 10/31/20 10/31/20 13:03 13:08 Temperature Pulse Rate 63 66 Pulse Rate [ From Monitor] Respiratory 17 Rate Blood Pressure 153/99 153/99 O2 Sat by Pulse 100 Oximetry O2 Sat by Pulse Oximetry [ Assessment] Constitutional: appears uncomfortable, other (middle aged obese male with mildly increased respiratory efort at rest) Eyes: non-icteric ENT: oropharynx moist, other (midline tracheostomy) Neck: supple, no lymphadenopathy, no JVD Effort: mildly labored Ascultation: Bilateral: diminished breath sounds, rhonchi Percussion: Bilateral: not dull Cardiovascular: regular rate and rhythm, other (S1,S2) Gastrointestinal: normoactive bowel sounds, soft, non-tender, non-distended (protuberant) Integumentary: normal Extremities: no cyanosis, no edema, pulses normal, no ischemia or petechiae Neurologic: pupils equal and round, unable to assess Psychiatric: other (unable to assess re: AMS) CBC and BMP: 10/29/20 04:23 10/31/20 04:00 ABG, PT/INR, D-dimer: ABG ABG pH 7.424 (7.320-7.450) 10/25/20 18:10 POC ABG pCO2 52.3 mmHg (32.0-48.0) H 10/25/20 18:10 ABG pCO2 55.5 mm Hg 10/16/20 05:10 POC ABG pO2 97.1 mmHg (83-108) 10/25/20 18:10 ABG pO2 104.5 mm Hg (80.0-90.0) H 10/16/20 05:10 POC ABG HCO3 33.5 10/25/20 18:10 ABG O2 Saturation 97.4 (0-100) 10/25/20 18:10 PT/INR, D-dimer PT 13.5 Sec. (12.2-14.9) 10/28/20 07:00 INR 1.05 (0.87-1.13) 10/28/20 07:00 D-Dimer 679.5 ng/mlDDU (0-234) H 10/10/20 10:48 Abnormal lab findings: Abnormal Labs 10/10/20 10/10/20 10/10/20 10:46 10:46 10:46 WBC RBC Hgb Hct RDW Lymph % (Auto) [place] % (Auto) Lymph # (Auto) [place] # (Auto) Seg Neutrophils % Lymphocytes % (Manual) Monocytes % (Manual) Seg Neutrophils # Seg Neutrophils # Man Lymphocytes # (Manual) Monocytes # (Manual) D-Dimer Heparin Anti-Xa Level ABG pH POC ABG pCO2 POC ABG pO2 ABG pO2 ABG HCO3 ABG O2 Saturation ABG Base Excess ABG Hemoglobin ABG Oxyhemoglobin ABG Sodium ABG Potassium ABG Chloride ABG Glucose VBG pH Oxyhemoglobin Carboxyhemoglobin Sodium Potassium Chloride Carbon Dioxide BUN Creatinine Glucose POC Glucose Lactic Acid 13.60 H* Calcium Phosphorus Magnesium Total Bilirubin AST ALT Ammonia 214.0 H Lactate Dehydrogenase Total Creatine Kinase CK-MB (CK-2) Troponin T NT-Pro-B Natriuret Pep Total Protein Albumin Triglycerides TSH 6.260 H Arterial Blood Glucose Arterial Blood Ionized Calcium Urine pH Urine WBC (Auto) Urine Creatinine 10/10/20 10/10/20 10/10/20 10:46 10:48 10:48 WBC RBC 5.28 H Hgb 15.5 H Hct 48.8 H RDW Lymph % (Auto) [place] % (Auto) Lymph # (Auto) [place] # (Auto) Seg Neutrophils % Lymphocytes % (Manual) 42.0 H Monocytes % (Manual) Seg Neutrophils # Seg Neutrophils # Man Lymphocytes # (Manual) Monocytes # (Manual) D-Dimer Heparin Anti-Xa Level ABG pH POC ABG pCO2 POC ABG pO2 ABG pO2 ABG HCO3 ABG O2 Saturation ABG Base Excess ABG Hemoglobin ABG Oxyhemoglobin ABG Sodium ABG Potassium ABG Chloride ABG Glucose VBG pH Oxyhemoglobin Carboxyhemoglobin Sodium Potassium 3.3 L Chloride 91.2 L Carbon Dioxide BUN Creatinine 1.8 H Glucose 231 H POC Glucose Lactic Acid Calcium Phosphorus Magnesium Total Bilirubin AST 60 H ALT 57 H Ammonia Lactate Dehydrogenase Total Creatine Kinase CK-MB (CK-2) Troponin T NT-Pro-B Natriuret Pep 1187 H Total Protein 9.0 H Albumin Triglycerides TSH Arterial Blood Glucose Arterial Blood Ionized Calcium Urine pH Urine WBC (Auto) Urine Creatinine 10/10/20 10/10/20 10/10/20 10:48 10:48 10:48 WBC RBC Hgb Hct RDW Lymph % (Auto) [place] % (Auto) Lymph # (Auto) [place] # (Auto) Seg Neutrophils % Lymphocytes % (Manual) Monocytes % (Manual) Seg Neutrophils # Seg Neutrophils # Man Lymphocytes # (Manual) Monocytes # (Manual) D-Dimer 679.5 H Heparin Anti-Xa Level ABG pH POC ABG pCO2 POC ABG pO2 ABG pO2 ABG HCO3 ABG O2 Saturation ABG Base Excess ABG Hemoglobin ABG Oxyhemoglobin ABG Sodium ABG Potassium ABG Chloride ABG Glucose VBG pH 6.870 L* Oxyhemoglobin Carboxyhemoglobin Sodium Potassium Chloride Carbon Dioxide BUN Creatinine Glucose POC Glucose Lactic Acid Calcium Phosphorus Magnesium Total Bilirubin AST ALT Ammonia Lactate Dehydrogenase 386 H Total Creatine Kinase CK-MB (CK-2) Troponin T NT-Pro-B Natriuret Pep Total Protein Albumin Triglycerides TSH Arterial Blood Glucose Arterial Blood Ionized Calcium Urine pH Urine WBC (Auto) Urine Creatinine 10/10/20 10/10/20 10/10/20 14:10 14:20 15:50 WBC RBC Hgb Hct RDW Lymph % (Auto) [place] % (Auto) Lymph # (Auto) [place] # (Auto) Seg Neutrophils % Lymphocytes % (Manual) Monocytes % (Manual) Seg Neutrophils # Seg Neutrophils # Man Lymphocytes # (Manual) Monocytes # (Manual) D-Dimer Heparin Anti-Xa Level ABG pH 7.175 L 7.247 L POC ABG pCO2 85.0 H POC ABG pO2 43.7 L ABG pO2 60.3 L ABG HCO3 32.0 H ABG O2 Saturation 86.1 L ABG Base Excess ABG Hemoglobin ABG Oxyhemoglobin 67.7 L ABG Sodium ABG Potassium ABG Chloride ABG Glucose 247 H VBG pH Oxyhemoglobin 84.4 L Carboxyhemoglobin Sodium Potassium Chloride Carbon Dioxide BUN Creatinine Glucose POC Glucose Lactic Acid 4.00 H* Calcium Phosphorus Magnesium Total Bilirubin AST ALT Ammonia Lactate Dehydrogenase Total Creatine Kinase CK-MB (CK-2) Troponin T NT-Pro-B Natriuret Pep Total Protein Albumin Triglycerides TSH Arterial Blood Glucose 247 H Arterial Blood Ionized Calcium 4.4 L Urine pH Urine WBC (Auto) Urine Creatinine 10/10/20 10/10/20 10/10/20 15:50 16:22 18:18 WBC RBC Hgb Hct RDW Lymph % (Auto) [place] % (Auto) Lymph # (Auto) [place] # (Auto) Seg Neutrophils % Lymphocytes % (Manual) Monocytes % (Manual) Seg Neutrophils # Seg Neutrophils # Man Lymphocytes # (Manual) Monocytes # (Manual) D-Dimer Heparin Anti-Xa Level ABG pH 7.171 L POC ABG pCO2 96.6 H POC ABG pO2 55.3 L ABG pO2 ABG HCO3 ABG O2 Saturation ABG Base Excess ABG Hemoglobin ABG Oxyhemoglobin 81.4 L ABG Sodium ABG Potassium ABG Chloride ABG Glucose 115 H VBG pH Oxyhemoglobin Carboxyhemoglobin Sodium Potassium Chloride Carbon Dioxide BUN Creatinine Glucose POC Glucose 132 H Lactic Acid Calcium Phosphorus Magnesium Total Bilirubin AST ALT Ammonia Lactate Dehydrogenase Total Creatine Kinase 1192 H CK-MB (CK-2) 21.7 H Troponin T 0.377 H* D NT-Pro-B Natriuret Pep Total Protein Albumin Triglycerides TSH Arterial Blood Glucose 115 H Arterial Blood Ionized Calcium Urine pH Urine WBC (Auto) Urine Creatinine 10/10/20 10/10/20 10/10/20 18:18 18:18 22:49 WBC 23.0 H RBC 5.12 H Hgb Hct RDW Lymph % (Auto) [place] % (Auto) Lymph # (Auto) [place] # (Auto) Seg Neutrophils % Lymphocytes % (Manual) 4.0 L Monocytes % (Manual) 9.0 H Seg Neutrophils # Seg Neutrophils # Man 13.8 H Lymphocytes # (Manual) 0.9 L Monocytes # (Manual) 2.1 H D-Dimer Heparin Anti-Xa Level ABG pH POC ABG pCO2 POC ABG pO2 ABG pO2 ABG HCO3 ABG O2 Saturation ABG Base Excess ABG Hemoglobin ABG Oxyhemoglobin ABG Sodium ABG Potassium ABG Chloride ABG Glucose VBG pH Oxyhemoglobin Carboxyhemoglobin Sodium 146 H Potassium Chloride Carbon Dioxide 34 H D BUN 27 H Creatinine 2.7 H Glucose 102 H POC Glucose Lactic Acid Calcium Phosphorus Magnesium Total Bilirubin AST 90 H ALT 66 H Ammonia Lactate Dehydrogenase Total Creatine Kinase CK-MB (CK-2) Troponin T 0.273 H* D NT-Pro-B Natriuret Pep Total Protein Albumin Triglycerides TSH Arterial Blood Glucose Arterial Blood Ionized Calcium Urine pH Urine WBC (Auto) Urine Creatinine 10/11/20 10/11/20 10/11/20 02:00 02:00 02:00 WBC 17.3 H RBC Hgb Hct RDW Lymph % (Auto) 3.9 L [place] % (Auto) Lymph # (Auto) 0.7 L [place] # (Auto) Seg Neutrophils % 93.0 H Lymphocytes % (Manual) Monocytes % (Manual) Seg Neutrophils # 16.1 H Seg Neutrophils # Man Lymphocytes # (Manual) Monocytes # (Manual) D-Dimer Heparin Anti-Xa Level ABG pH POC ABG pCO2 POC ABG pO2 ABG pO2 ABG HCO3 ABG O2 Saturation ABG Base Excess ABG Hemoglobin ABG Oxyhemoglobin ABG Sodium ABG Potassium ABG Chloride ABG Glucose VBG pH Oxyhemoglobin Carboxyhemoglobin Sodium 149 H Potassium 3.3 L Chloride 95.3 L Carbon Dioxide 37 H BUN 29 H Creatinine 2.6 H Glucose POC Glucose Lactic Acid Calcium Phosphorus Magnesium Total Bilirubin AST 80 H ALT 59 H Ammonia Lactate Dehydrogenase Total Creatine Kinase CK-MB (CK-2) Troponin T 0.201 H* D NT-Pro-B Natriuret Pep Total Protein Albumin 3.6 L Triglycerides TSH Arterial Blood Glucose Arterial Blood Ionized Calcium Urine pH Urine WBC (Auto) Urine Creatinine 10/11/20 10/11/20 10/11/20 03:51 08:35 11:15 WBC RBC Hgb Hct RDW Lymph % (Auto) [place] % (Auto) Lymph # (Auto) [place] # (Auto) Seg Neutrophils % Lymphocytes % (Manual) Monocytes % (Manual) Seg Neutrophils # Seg Neutrophils # Man Lymphocytes # (Manual) Monocytes # (Manual) D-Dimer Heparin Anti-Xa Level 0.22 L ABG pH 7.491 H POC ABG pCO2 57.6 H POC ABG pO2 ABG pO2 ABG HCO3 ABG O2 Saturation ABG Base Excess ABG Hemoglobin ABG Oxyhemoglobin ABG Sodium 150.0 H ABG Potassium 3.1 L ABG Chloride 96.0 L ABG Glucose 122 H VBG pH Oxyhemoglobin Carboxyhemoglobin Sodium Potassium Chloride Carbon Dioxide BUN Creatinine Glucose POC Glucose 151 H Lactic Acid Calcium Phosphorus Magnesium Total Bilirubin AST ALT Ammonia Lactate Dehydrogenase Total Creatine Kinase CK-MB (CK-2) Troponin T NT-Pro-B Natriuret Pep Total Protein Albumin Triglycerides TSH Arterial Blood Glucose 122 H Arterial Blood Ionized Calcium 3.9 L Urine pH Urine WBC (Auto) Urine Creatinine 10/11/20 10/11/20 10/11/20 13:30 13:30 13:30 WBC 15.0 H RBC Hgb Hct RDW Lymph % (Auto) [place] % (Auto) Lymph # (Auto) [place] # (Auto) Seg Neutrophils % Lymphocytes % (Manual) Monocytes % (Manual) Seg Neutrophils # Seg Neutrophils # Man Lymphocytes # (Manual) Monocytes # (Manual) D-Dimer Heparin Anti-Xa Level ABG pH POC ABG pCO2 POC ABG pO2 ABG pO2 ABG HCO3 ABG O2 Saturation ABG Base Excess ABG Hemoglobin ABG Oxyhemoglobin ABG Sodium ABG Potassium ABG Chloride ABG Glucose VBG pH Oxyhemoglobin Carboxyhemoglobin Sodium Potassium Chloride Carbon Dioxide BUN Creatinine Glucose POC Glucose Lactic Acid Calcium Phosphorus Magnesium Total Bilirubin AST ALT Ammonia Lactate Dehydrogenase Total Creatine Kinase CK-MB (CK-2) Troponin T NT-Pro-B Natriuret Pep Total Protein Albumin Triglycerides TSH Arterial Blood Glucose Arterial Blood Ionized Calcium Urine pH 9.0 H Urine WBC (Auto) 18.0 H Urine Creatinine 80.5 H 10/11/20 10/11/20 10/12/20 17:17 23:14 03:53 WBC RBC Hgb Hct RDW Lymph % (Auto) [place] % (Auto) Lymph # (Auto) [place] # (Auto) Seg Neutrophils % Lymphocytes % (Manual) Monocytes % (Manual) Seg Neutrophils # Seg Neutrophils # Man Lymphocytes # (Manual) Monocytes # (Manual) D-Dimer Heparin Anti-Xa Level ABG pH 7.545 H POC ABG pCO2 54.6 H POC ABG pO2 231.9 H ABG pO2 ABG HCO3 ABG O2 Saturation ABG Base Excess ABG Hemoglobin ABG Oxyhemoglobin 98.5 H ABG Sodium 150.5 H ABG Potassium 3.2 L ABG Chloride 96.0 L ABG Glucose 148 H VBG pH Oxyhemoglobin Carboxyhemoglobin Sodium Potassium Chloride Carbon Dioxide BUN Creatinine Glucose POC Glucose 121 H 135 H Lactic Acid Calcium Phosphorus Magnesium Total Bilirubin AST ALT Ammonia Lactate Dehydrogenase Total Creatine Kinase CK-MB (CK-2) Troponin T NT-Pro-B Natriuret Pep Total Protein Albumin Triglycerides TSH Arterial Blood Glucose 148 H Arterial Blood Ionized Calcium 3.8 L Urine pH Urine WBC (Auto) Urine Creatinine 10/12/20 10/12/20 10/12/20 04:00 05:10 05:12 WBC 14.3 H RBC Hgb 11.6 L Hct 35.2 L RDW Lymph % (Auto) [place] % (Auto) Lymph # (Auto) [place] # (Auto) Seg Neutrophils % Lymphocytes % (Manual) Monocytes % (Manual) Seg Neutrophils # Seg Neutrophils # Man Lymphocytes # (Manual) Monocytes # (Manual) D-Dimer Heparin Anti-Xa Level ABG pH POC ABG pCO2 POC ABG pO2 ABG pO2 ABG HCO3 ABG O2 Saturation ABG Base Excess ABG Hemoglobin ABG Oxyhemoglobin ABG Sodium ABG Potassium ABG Chloride ABG Glucose VBG pH Oxyhemoglobin Carboxyhemoglobin Sodium 155 H Potassium 3.3 L Chloride 97.9 L Carbon Dioxide 47 H* D BUN 50 H Creatinine 3.4 H Glucose 146 H POC Glucose 137 H Lactic Acid Calcium 8.0 L Phosphorus Magnesium Total Bilirubin AST ALT Ammonia Lactate Dehydrogenase Total Creatine Kinase CK-MB (CK-2) Troponin T 0.125 H* D NT-Pro-B Natriuret Pep Total Protein Albumin Triglycerides TSH Arterial Blood Glucose Arterial Blood Ionized Calcium Urine pH Urine WBC (Auto) Urine Creatinine 10/12/20 10/12/20 10/12/20 11:39 16:01 19:49 WBC RBC Hgb Hct RDW Lymph % (Auto) [place] % (Auto) Lymph # (Auto) [place] # (Auto) Seg Neutrophils % Lymphocytes % (Manual) Monocytes % (Manual) Seg Neutrophils # Seg Neutrophils # Man Lymphocytes # (Manual) Monocytes # (Manual) D-Dimer Heparin Anti-Xa Level ABG pH POC ABG pCO2 POC ABG pO2 ABG pO2 ABG HCO3 ABG O2 Saturation ABG Base Excess ABG Hemoglobin ABG Oxyhemoglobin ABG Sodium ABG Potassium ABG Chloride ABG Glucose VBG pH Oxyhemoglobin Carboxyhemoglobin Sodium 157 H Potassium 3.3 L Chloride Carbon Dioxide 47 H* BUN 52 H Creatinine 3.0 H Glucose 137 H POC Glucose 138 H 119 H Lactic Acid Calcium 8.0 L Phosphorus Magnesium Total Bilirubin AST ALT Ammonia Lactate Dehydrogenase Total Creatine Kinase CK-MB (CK-2) Troponin T NT-Pro-B Natriuret Pep Total Protein Albumin Triglycerides TSH Arterial Blood Glucose Arterial Blood Ionized Calcium Urine pH Urine WBC (Auto) Urine Creatinine 10/12/20 10/13/20 10/13/20 23:37 02:28 04:52 WBC RBC Hgb Hct RDW Lymph % (Auto) [place] % (Auto) Lymph # (Auto) [place] # (Auto) Seg Neutrophils % Lymphocytes % (Manual) Monocytes % (Manual) Seg Neutrophils # Seg Neutrophils # Man Lymphocytes # (Manual) Monocytes # (Manual) D-Dimer Heparin Anti-Xa Level ABG pH 7.485 H POC ABG pCO2 57.1 H POC ABG pO2 ABG pO2 ABG HCO3 ABG O2 Saturation ABG Base Excess ABG Hemoglobin ABG Oxyhemoglobin ABG Sodium 152.4 H ABG Potassium ABG Chloride ABG Glucose 129 H VBG pH Oxyhemoglobin Carboxyhemoglobin Sodium 155 H Potassium Chloride Carbon Dioxide 45 H* BUN 52 H Creatinine 2.7 H Glucose 121 H POC Glucose 131 H Lactic Acid Calcium Phosphorus Magnesium 2.40 H Total Bilirubin AST ALT Ammonia Lactate Dehydrogenase Total Creatine Kinase CK-MB (CK-2) Troponin T NT-Pro-B Natriuret Pep Total Protein Albumin Triglycerides 278 H TSH Arterial Blood Glucose 129 H Arterial Blood Ionized Calcium 4.1 L Urine pH Urine WBC (Auto) Urine Creatinine 10/13/20 10/13/20 10/13/20 04:52 05:13 11:37 WBC 14.7 H RBC Hgb 11.7 L Hct RDW 15.8 H Lymph % (Auto) [place] % (Auto) Lymph # (Auto) [place] # (Auto) Seg Neutrophils % Lymphocytes % (Manual) Monocytes % (Manual) Seg Neutrophils # Seg Neutrophils # Man Lymphocytes # (Manual) Monocytes # (Manual) D-Dimer Heparin Anti-Xa Level ABG pH POC ABG pCO2 POC ABG pO2 ABG pO2 ABG HCO3 ABG O2 Saturation ABG Base Excess ABG Hemoglobin ABG Oxyhemoglobin ABG Sodium ABG Potassium ABG Chloride ABG Glucose VBG pH Oxyhemoglobin Carboxyhemoglobin Sodium Potassium Chloride Carbon Dioxide BUN Creatinine Glucose POC Glucose 116 H 116 H Lactic Acid Calcium Phosphorus Magnesium Total Bilirubin AST ALT Ammonia Lactate Dehydrogenase Total Creatine Kinase CK-MB (CK-2) Troponin T NT-Pro-B Natriuret Pep Total Protein Albumin Triglycerides TSH Arterial Blood Glucose Arterial Blood Ionized Calcium Urine pH Urine WBC (Auto) Urine Creatinine 10/13/20 10/14/20 10/14/20 17:50 03:45 04:46 WBC 11.1 H RBC Hgb Hct RDW 15.3 H Lymph % (Auto) [place] % (Auto) Lymph # (Auto) [place] # (Auto) Seg Neutrophils % Lymphocytes % (Manual) Monocytes % (Manual) Seg Neutrophils # Seg Neutrophils # Man Lymphocytes # (Manual) Monocytes # (Manual) D-Dimer Heparin Anti-Xa Level ABG pH POC ABG pCO2 59.6 H POC ABG pO2 ABG pO2 ABG HCO3 ABG O2 Saturation ABG Base Excess ABG Hemoglobin ABG Oxyhemoglobin ABG Sodium 151.4 H ABG Potassium 3.3 L ABG Chloride ABG Glucose 138 H VBG pH Oxyhemoglobin Carboxyhemoglobin 1.6 H Sodium Potassium Chloride Carbon Dioxide BUN Creatinine Glucose POC Glucose 140 H Lactic Acid Calcium Phosphorus Magnesium Total Bilirubin AST ALT Ammonia Lactate Dehydrogenase Total Creatine Kinase CK-MB (CK-2) Troponin T NT-Pro-B Natriuret Pep Total Protein Albumin Triglycerides TSH Arterial Blood Glucose 138 H Arterial Blood Ionized Calcium 4.5 L Urine pH Urine WBC (Auto) Urine Creatinine 10/14/20 10/14/20 10/14/20 04:46 05:10 11:11 WBC RBC Hgb Hct RDW Lymph % (Auto) [place] % (Auto) Lymph # (Auto) [place] # (Auto) Seg Neutrophils % Lymphocytes % (Manual) Monocytes % (Manual) Seg Neutrophils # Seg Neutrophils # Man Lymphocytes # (Manual) Monocytes # (Manual) D-Dimer Heparin Anti-Xa Level ABG pH POC ABG pCO2 POC ABG pO2 ABG pO2 ABG HCO3 ABG O2 Saturation ABG Base Excess ABG Hemoglobin ABG Oxyhemoglobin ABG Sodium ABG Potassium ABG Chloride ABG Glucose VBG pH Oxyhemoglobin Carboxyhemoglobin Sodium 152 H Potassium 3.5 L Chloride Carbon Dioxide 38 H D BUN 46 H Creatinine 2.3 H Glucose 127 H POC Glucose 116 H 114 H Lactic Acid Calcium Phosphorus Magnesium Total Bilirubin AST ALT Ammonia Lactate Dehydrogenase Total Creatine Kinase CK-MB (CK-2) Troponin T NT-Pro-B Natriuret Pep Total Protein Albumin Triglycerides TSH Arterial Blood Glucose Arterial Blood Ionized Calcium Urine pH Urine WBC (Auto) Urine Creatinine 10/14/20 10/14/20 10/15/20 18:53 23:23 04:12 WBC RBC Hgb Hct RDW Lymph % (Auto) [place] % (Auto) Lymph # (Auto) [place] # (Auto) Seg Neutrophils % Lymphocytes % (Manual) Monocytes % (Manual) Seg Neutrophils # Seg Neutrophils # Man Lymphocytes # (Manual) Monocytes # (Manual) D-Dimer Heparin Anti-Xa Level ABG pH POC ABG pCO2 POC ABG pO2 ABG pO2 ABG HCO3 ABG O2 Saturation ABG Base Excess ABG Hemoglobin ABG Oxyhemoglobin ABG Sodium ABG Potassium ABG Chloride ABG Glucose VBG pH Oxyhemoglobin Carboxyhemoglobin Sodium 149 H Potassium 3.2 L Chloride Carbon Dioxide 37 H BUN 40 H Creatinine 2.0 H Glucose 124 H POC Glucose 128 H 113 H Lactic Acid Calcium Phosphorus Magnesium Total Bilirubin AST ALT Ammonia Lactate Dehydrogenase Total Creatine Kinase CK-MB (CK-2) Troponin T NT-Pro-B Natriuret Pep Total Protein Albumin Triglycerides TSH Arterial Blood Glucose Arterial Blood Ionized Calcium Urine pH Urine WBC (Auto) Urine Creatinine 10/15/20 10/15/20 10/15/20 04:22 11:39 17:36 WBC RBC Hgb Hct RDW Lymph % (Auto) [place] % (Auto) Lymph # (Auto) [place] # (Auto) Seg Neutrophils % Lymphocytes % (Manual) Monocytes % (Manual) Seg Neutrophils # Seg Neutrophils # Man Lymphocytes # (Manual) Monocytes # (Manual) D-Dimer Heparin Anti-Xa Level ABG pH POC ABG pCO2 POC ABG pO2 ABG pO2 115.0 H ABG HCO3 38.1 H ABG O2 Saturation ABG Base Excess 11.3 H ABG Hemoglobin 11.0 L ABG Oxyhemoglobin ABG Sodium ABG Potassium ABG Chloride ABG Glucose VBG pH Oxyhemoglobin Carboxyhemoglobin Sodium Potassium Chloride Carbon Dioxide BUN Creatinine Glucose POC Glucose 123 H 118 H Lactic Acid Calcium Phosphorus Magnesium Total Bilirubin AST ALT Ammonia Lactate Dehydrogenase Total Creatine Kinase CK-MB (CK-2) Troponin T NT-Pro-B Natriuret Pep Total Protein Albumin Triglycerides TSH Arterial Blood Glucose Arterial Blood Ionized Calcium Urine pH Urine WBC (Auto) Urine Creatinine 10/15/20 10/16/20 10/16/20 23:18 03:13 05:10 WBC RBC Hgb Hct RDW Lymph % (Auto) [place] % (Auto) Lymph # (Auto) [place] # (Auto) Seg Neutrophils % Lymphocytes % (Manual) Monocytes % (Manual) Seg Neutrophils # Seg Neutrophils # Man Lymphocytes # (Manual) Monocytes # (Manual) D-Dimer Heparin Anti-Xa Level ABG pH POC ABG pCO2 POC ABG pO2 ABG pO2 104.5 H ABG HCO3 35.1 H ABG O2 Saturation ABG Base Excess 9.5 H ABG Hemoglobin 7.9 L ABG Oxyhemoglobin ABG Sodium ABG Potassium ABG Chloride ABG Glucose VBG pH Oxyhemoglobin Carboxyhemoglobin Sodium Potassium 3.3 L Chloride Carbon Dioxide 33 H BUN 37 H Creatinine 1.4 H Glucose 148 H POC Glucose 135 H Lactic Acid Calcium Phosphorus Magnesium 2.40 H Total Bilirubin AST ALT Ammonia Lactate Dehydrogenase Total Creatine Kinase CK-MB (CK-2) Troponin T NT-Pro-B Natriuret Pep Total Protein Albumin Triglycerides TSH Arterial Blood Glucose Arterial Blood Ionized Calcium Urine pH Urine WBC (Auto) Urine Creatinine 10/16/20 10/16/20 10/16/20 06:36 11:08 17:07 WBC RBC Hgb Hct RDW Lymph % (Auto) [place] % (Auto) Lymph # (Auto) [place] # (Auto) Seg Neutrophils % Lymphocytes % (Manual) Monocytes % (Manual) Seg Neutrophils # Seg Neutrophils # Man Lymphocytes # (Manual) Monocytes # (Manual) D-Dimer Heparin Anti-Xa Level ABG pH POC ABG pCO2 POC ABG pO2 ABG pO2 ABG HCO3 ABG O2 Saturation ABG Base Excess ABG Hemoglobin ABG Oxyhemoglobin ABG Sodium ABG Potassium ABG Chloride ABG Glucose VBG pH Oxyhemoglobin Carboxyhemoglobin Sodium Potassium Chloride Carbon Dioxide BUN Creatinine Glucose POC Glucose 150 H 111 H 132 H Lactic Acid Calcium Phosphorus Magnesium Total Bilirubin AST ALT Ammonia Lactate Dehydrogenase Total Creatine Kinase CK-MB (CK-2) Troponin T NT-Pro-B Natriuret Pep Total Protein Albumin Triglycerides TSH Arterial Blood Glucose Arterial Blood Ionized Calcium Urine pH Urine WBC (Auto) Urine Creatinine 10/16/20 10/17/20 10/17/20 23:38 03:32 03:32 WBC RBC Hgb Hct RDW Lymph % (Auto) [place] % (Auto) Lymph # (Auto) [place] # (Auto) Seg Neutrophils % Lymphocytes % (Manual) Monocytes % (Manual) Seg Neutrophils # Seg Neutrophils # Man Lymphocytes # (Manual) Monocytes # (Manual) D-Dimer Heparin Anti-Xa Level ABG pH POC ABG pCO2 POC ABG pO2 ABG pO2 ABG HCO3 ABG O2 Saturation ABG Base Excess ABG Hemoglobin ABG Oxyhemoglobin ABG Sodium ABG Potassium ABG Chloride ABG Glucose VBG pH Oxyhemoglobin Carboxyhemoglobin Sodium 146 H Potassium Chloride Carbon Dioxide 32 H BUN 57 H Creatinine 2.4 H D Glucose 124 H POC Glucose 117 H Lactic Acid Calcium Phosphorus 5.20 H D Magnesium Total Bilirubin AST ALT Ammonia Lactate Dehydrogenase Total Creatine Kinase CK-MB (CK-2) Troponin T NT-Pro-B Natriuret Pep Total Protein Albumin Triglycerides TSH Arterial Blood Glucose Arterial Blood Ionized Calcium Urine pH Urine WBC (Auto) Urine Creatinine 10/17/20 10/17/20 10/18/20 05:10 17:33 00:13 WBC RBC Hgb Hct RDW Lymph % (Auto) [place] % (Auto) Lymph # (Auto) [place] # (Auto) Seg Neutrophils % Lymphocytes % (Manual) Monocytes % (Manual) Seg Neutrophils # Seg Neutrophils # Man Lymphocytes # (Manual) Monocytes # (Manual) D-Dimer Heparin Anti-Xa Level ABG pH POC ABG pCO2 POC ABG pO2 ABG pO2 ABG HCO3 ABG O2 Saturation ABG Base Excess ABG Hemoglobin ABG Oxyhemoglobin ABG Sodium ABG Potassium ABG Chloride ABG Glucose VBG pH Oxyhemoglobin Carboxyhemoglobin Sodium Potassium Chloride Carbon Dioxide BUN Creatinine Glucose POC Glucose 122 H 121 H 23 L Lactic Acid Calcium Phosphorus Magnesium Total Bilirubin AST ALT Ammonia Lactate Dehydrogenase Total Creatine Kinase CK-MB (CK-2) Troponin T NT-Pro-B Natriuret Pep Total Protein Albumin Triglycerides TSH Arterial Blood Glucose Arterial Blood Ionized Calcium Urine pH Urine WBC (Auto) Urine Creatinine 10/18/20 10/18/20 10/18/20 00:16 03:27 03:27 WBC RBC Hgb 11.7 L Hct RDW Lymph % (Auto) [place] % (Auto) Lymph # (Auto) [place] # (Auto) Seg Neutrophils % Lymphocytes % (Manual) Monocytes % (Manual) Seg Neutrophils # Seg Neutrophils # Man Lymphocytes # (Manual) Monocytes # (Manual) D-Dimer Heparin Anti-Xa Level ABG pH POC ABG pCO2 POC ABG pO2 ABG pO2 ABG HCO3 ABG O2 Saturation ABG Base Excess ABG Hemoglobin ABG Oxyhemoglobin ABG Sodium ABG Potassium ABG Chloride ABG Glucose VBG pH Oxyhemoglobin Carboxyhemoglobin Sodium Potassium Chloride 97.6 L Carbon Dioxide BUN 90 H Creatinine 3.3 H Glucose 146 H POC Glucose 134 H Lactic Acid Calcium Phosphorus Magnesium Total Bilirubin 1.70 H AST ALT Ammonia Lactate Dehydrogenase Total Creatine Kinase CK-MB (CK-2) Troponin T NT-Pro-B Natriuret Pep Total Protein Albumin 3.1 L Triglycerides TSH Arterial Blood Glucose Arterial Blood Ionized Calcium Urine pH Urine WBC (Auto) Urine Creatinine 10/18/20 10/18/20 10/18/20 05:09 11:19 17:15 WBC RBC Hgb Hct RDW Lymph % (Auto) [place] % (Auto) Lymph # (Auto) [place] # (Auto) Seg Neutrophils % Lymphocytes % (Manual) Monocytes % (Manual) Seg Neutrophils # Seg Neutrophils # Man Lymphocytes # (Manual) Monocytes # (Manual) D-Dimer Heparin Anti-Xa Level ABG pH POC ABG pCO2 POC ABG pO2 ABG pO2 ABG HCO3 ABG O2 Saturation ABG Base Excess ABG Hemoglobin ABG Oxyhemoglobin ABG Sodium ABG Potassium ABG Chloride ABG Glucose VBG pH Oxyhemoglobin Carboxyhemoglobin Sodium Potassium Chloride Carbon Dioxide BUN Creatinine Glucose POC Glucose 144 H 145 H 151 H Lactic Acid Calcium Phosphorus Magnesium Total Bilirubin AST ALT Ammonia Lactate Dehydrogenase Total Creatine Kinase CK-MB (CK-2) Troponin T NT-Pro-B Natriuret Pep Total Protein Albumin Triglycerides TSH Arterial Blood Glucose Arterial Blood Ionized Calcium Urine pH Urine WBC (Auto) Urine Creatinine 10/18/20 10/18/20 10/19/20 23:16 Unknown 04:55 WBC RBC Hgb Hct RDW Lymph % (Auto) [place] % (Auto) Lymph # (Auto) [place] # (Auto) Seg Neutrophils % Lymphocytes % (Manual) Monocytes % (Manual) Seg Neutrophils # Seg Neutrophils # Man Lymphocytes # (Manual) Monocytes # (Manual) D-Dimer Heparin Anti-Xa Level ABG pH POC ABG pCO2 POC ABG pO2 ABG pO2 ABG HCO3 ABG O2 Saturation ABG Base Excess ABG Hemoglobin ABG Oxyhemoglobin ABG Sodium ABG Potassium ABG Chloride ABG Glucose VBG pH Oxyhemoglobin Carboxyhemoglobin Sodium Potassium Chloride Carbon Dioxide BUN 104 H Creatinine 3.1 H Glucose 139 H POC Glucose 123 H Lactic Acid Calcium Phosphorus Magnesium Total Bilirubin AST ALT Ammonia Lactate Dehydrogenase Total Creatine Kinase CK-MB (CK-2) Troponin T NT-Pro-B Natriuret Pep Total Protein Albumin Triglycerides TSH Arterial Blood Glucose Arterial Blood Ionized Calcium Urine pH Urine WBC (Auto) 115.0 H Urine Creatinine 10/19/20 10/19/20 10/19/20 04:55 11:35 13:14 WBC 15.1 H RBC Hgb 11.1 L Hct 34.4 L RDW Lymph % (Auto) 4.2 L [place] % (Auto) 11.9 H Lymph # (Auto) 0.6 L [place] # (Auto) 1.8 H Seg Neutrophils % 82.0 H Lymphocytes % (Manual) Monocytes % (Manual) Seg Neutrophils # 12.4 H Seg Neutrophils # Man Lymphocytes # (Manual) Monocytes # (Manual) D-Dimer Heparin Anti-Xa Level ABG pH POC ABG pCO2 POC ABG pO2 ABG pO2 ABG HCO3 ABG O2 Saturation ABG Base Excess ABG Hemoglobin ABG Oxyhemoglobin ABG Sodium ABG Potassium ABG Chloride ABG Glucose VBG pH Oxyhemoglobin Carboxyhemoglobin Sodium Potassium Chloride Carbon Dioxide BUN Creatinine Glucose POC Glucose 136 H Lactic Acid Calcium Phosphorus Magnesium Total Bilirubin AST ALT Ammonia Lactate Dehydrogenase Total Creatine Kinase CK-MB (CK-2) Troponin T NT-Pro-B Natriuret Pep Total Protein Albumin Triglycerides TSH Arterial Blood Glucose Arterial Blood Ionized Calcium Urine pH Urine WBC (Auto) Urine Creatinine 93.7 H 10/19/20 10/19/20 10/20/20 17:53 23:39 04:30 WBC RBC Hgb Hct RDW Lymph % (Auto) [place] % (Auto) Lymph # (Auto) [place] # (Auto) Seg Neutrophils % Lymphocytes % (Manual) Monocytes % (Manual) Seg Neutrophils # Seg Neutrophils # Man Lymphocytes # (Manual) Monocytes # (Manual) D-Dimer Heparin Anti-Xa Level ABG pH POC ABG pCO2 POC ABG pO2 ABG pO2 ABG HCO3 ABG O2 Saturation ABG Base Excess ABG Hemoglobin ABG Oxyhemoglobin ABG Sodium ABG Potassium ABG Chloride ABG Glucose VBG pH Oxyhemoglobin Carboxyhemoglobin Sodium Potassium Chloride Carbon Dioxide BUN 104 H Creatinine 2.8 H Glucose 151 H POC Glucose 137 H 133 H Lactic Acid Calcium Phosphorus Magnesium Total Bilirubin AST ALT Ammonia Lactate Dehydrogenase Total Creatine Kinase CK-MB (CK-2) Troponin T NT-Pro-B Natriuret Pep Total Protein Albumin Triglycerides TSH Arterial Blood Glucose Arterial Blood Ionized Calcium Urine pH Urine WBC (Auto) Urine Creatinine 10/20/20 10/20/20 10/20/20 04:30 05:38 11:34 WBC 17.9 H RBC Hgb 11.7 L Hct RDW Lymph % (Auto) [place] % (Auto) Lymph # (Auto) [place] # (Auto) Seg Neutrophils % Lymphocytes % (Manual) Monocytes % (Manual) Seg Neutrophils # Seg Neutrophils # Man Lymphocytes # (Manual) Monocytes # (Manual) D-Dimer Heparin Anti-Xa Level ABG pH POC ABG pCO2 POC ABG pO2 ABG pO2 ABG HCO3 ABG O2 Saturation ABG Base Excess ABG Hemoglobin ABG Oxyhemoglobin ABG Sodium ABG Potassium ABG Chloride ABG Glucose VBG pH Oxyhemoglobin Carboxyhemoglobin Sodium Potassium Chloride Carbon Dioxide BUN Creatinine Glucose POC Glucose 164 H 148 H Lactic Acid Calcium Phosphorus Magnesium Total Bilirubin AST ALT Ammonia Lactate Dehydrogenase Total Creatine Kinase CK-MB (CK-2) Troponin T NT-Pro-B Natriuret Pep Total Protein Albumin Triglycerides TSH Arterial Blood Glucose Arterial Blood Ionized Calcium Urine pH Urine WBC (Auto) Urine Creatinine 10/20/20 10/20/20 10/20/20 17:40 20:20 23:29 WBC RBC Hgb Hct RDW Lymph % (Auto) [place] % (Auto) Lymph # (Auto) [place] # (Auto) Seg Neutrophils % Lymphocytes % (Manual) Monocytes % (Manual) Seg Neutrophils # Seg Neutrophils # Man Lymphocytes # (Manual) Monocytes # (Manual) D-Dimer Heparin Anti-Xa Level ABG pH 7.292 L POC ABG pCO2 68.5 H POC ABG pO2 ABG pO2 ABG HCO3 ABG O2 Saturation ABG Base Excess ABG Hemoglobin 11.6 L ABG Oxyhemoglobin ABG Sodium ABG Potassium ABG Chloride ABG Glucose 145 H VBG pH Oxyhemoglobin Carboxyhemoglobin Sodium Potassium Chloride Carbon Dioxide BUN Creatinine Glucose POC Glucose 130 H 136 H Lactic Acid Calcium Phosphorus Magnesium Total Bilirubin AST ALT Ammonia Lactate Dehydrogenase Total Creatine Kinase CK-MB (CK-2) Troponin T NT-Pro-B Natriuret Pep Total Protein Albumin Triglycerides TSH Arterial Blood Glucose 145 H Arterial Blood Ionized Calcium Urine pH Urine WBC (Auto) Urine Creatinine 10/21/20 10/21/20 10/21/20 04:20 06:26 06:30 WBC RBC Hgb Hct RDW Lymph % (Auto) [place] % (Auto) Lymph # (Auto) [place] # (Auto) Seg Neutrophils % Lymphocytes % (Manual) Monocytes % (Manual) Seg Neutrophils # Seg Neutrophils # Man Lymphocytes # (Manual) Monocytes # (Manual) D-Dimer Heparin Anti-Xa Level ABG pH 7.262 L POC ABG pCO2 72.4 H POC ABG pO2 81.6 L ABG pO2 ABG HCO3 ABG O2 Saturation ABG Base Excess ABG Hemoglobin 11.6 L ABG Oxyhemoglobin ABG Sodium ABG Potassium ABG Chloride ABG Glucose 140 H VBG pH Oxyhemoglobin Carboxyhemoglobin Sodium Potassium Chloride Carbon Dioxide 33 H BUN 104 H Creatinine 2.9 H Glucose 153 H POC Glucose 128 H Lactic Acid Calcium Phosphorus Magnesium Total Bilirubin AST ALT Ammonia Lactate Dehydrogenase Total Creatine Kinase CK-MB (CK-2) Troponin T NT-Pro-B Natriuret Pep Total Protein Albumin Triglycerides TSH Arterial Blood Glucose 140 H Arterial Blood Ionized Calcium Urine pH Urine WBC (Auto) Urine Creatinine 10/21/20 10/21/20 10/21/20 06:30 11:24 17:21 WBC 13.3 H RBC Hgb 10.7 L Hct 32.7 L RDW Lymph % (Auto) [place] % (Auto) Lymph # (Auto) [place] # (Auto) Seg Neutrophils % Lymphocytes % (Manual) Monocytes % (Manual) Seg Neutrophils # Seg Neutrophils # Man Lymphocytes # (Manual) Monocytes # (Manual) D-Dimer Heparin Anti-Xa Level ABG pH POC ABG pCO2 POC ABG pO2 ABG pO2 ABG HCO3 ABG O2 Saturation ABG Base Excess ABG Hemoglobin ABG Oxyhemoglobin ABG Sodium ABG Potassium ABG Chloride ABG Glucose VBG pH Oxyhemoglobin Carboxyhemoglobin Sodium Potassium Chloride Carbon Dioxide BUN Creatinine Glucose POC Glucose 178 H 138 H Lactic Acid Calcium Phosphorus Magnesium Total Bilirubin AST ALT Ammonia Lactate Dehydrogenase Total Creatine Kinase CK-MB (CK-2) Troponin T NT-Pro-B Natriuret Pep Total Protein Albumin Triglycerides TSH Arterial Blood Glucose Arterial Blood Ionized Calcium Urine pH Urine WBC (Auto) Urine Creatinine 10/22/20 10/22/20 10/22/20 00:05 04:30 06:15 WBC RBC Hgb Hct RDW Lymph % (Auto) [place] % (Auto) Lymph # (Auto) [place] # (Auto) Seg Neutrophils % Lymphocytes % (Manual) Monocytes % (Manual) Seg Neutrophils # Seg Neutrophils # Man Lymphocytes # (Manual) Monocytes # (Manual) D-Dimer Heparin Anti-Xa Level ABG pH 7.225 L POC ABG pCO2 76.6 H POC ABG pO2 ABG pO2 ABG HCO3 ABG O2 Saturation ABG Base Excess ABG Hemoglobin 11.1 L ABG Oxyhemoglobin ABG Sodium ABG Potassium ABG Chloride ABG Glucose 151 H VBG pH Oxyhemoglobin Carboxyhemoglobin Sodium Potassium Chloride Carbon Dioxide 32 H BUN 103 H Creatinine 2.7 H Glucose 151 H POC Glucose 135 H Lactic Acid Calcium Phosphorus Magnesium Total Bilirubin AST ALT Ammonia Lactate Dehydrogenase Total Creatine Kinase CK-MB (CK-2) Troponin T NT-Pro-B Natriuret Pep Total Protein Albumin Triglycerides TSH Arterial Blood Glucose 151 H Arterial Blood Ionized Calcium Urine pH Urine WBC (Auto) Urine Creatinine 10/22/20 10/22/20 10/22/20 06:18 11:34 11:44 WBC RBC Hgb Hct RDW Lymph % (Auto) [place] % (Auto) Lymph # (Auto) [place] # (Auto) Seg Neutrophils % Lymphocytes % (Manual) Monocytes % (Manual) Seg Neutrophils # Seg Neutrophils # Man Lymphocytes # (Manual) Monocytes # (Manual) D-Dimer Heparin Anti-Xa Level ABG pH 7.278 L POC ABG pCO2 67.8 H POC ABG pO2 ABG pO2 ABG HCO3 ABG O2 Saturation ABG Base Excess ABG Hemoglobin 10.2 L ABG Oxyhemoglobin ABG Sodium ABG Potassium ABG Chloride ABG Glucose 172 H VBG pH Oxyhemoglobin Carboxyhemoglobin Sodium Potassium Chloride Carbon Dioxide BUN Creatinine Glucose POC Glucose 137 H 147 H Lactic Acid Calcium Phosphorus Magnesium Total Bilirubin AST ALT Ammonia Lactate Dehydrogenase Total Creatine Kinase CK-MB (CK-2) Troponin T NT-Pro-B Natriuret Pep Total Protein Albumin Triglycerides TSH Arterial Blood Glucose 172 H Arterial Blood Ionized Calcium Urine pH Urine WBC (Auto) Urine Creatinine 10/22/20 10/22/20 10/23/20 17:40 23:55 05:11 WBC RBC Hgb Hct RDW Lymph % (Auto) [place] % (Auto) Lymph # (Auto) [place] # (Auto) Seg Neutrophils % Lymphocytes % (Manual) Monocytes % (Manual) Seg Neutrophils # Seg Neutrophils # Man Lymphocytes # (Manual) Monocytes # (Manual) D-Dimer Heparin Anti-Xa Level ABG pH POC ABG pCO2 63.6 H POC ABG pO2 81.2 L ABG pO2 ABG HCO3 ABG O2 Saturation ABG Base Excess ABG Hemoglobin 10.6 L ABG Oxyhemoglobin ABG Sodium ABG Potassium ABG Chloride 109.0 H ABG Glucose 149 H VBG pH Oxyhemoglobin Carboxyhemoglobin Sodium Potassium Chloride Carbon Dioxide BUN Creatinine Glucose POC Glucose 141 H 139 H Lactic Acid Calcium Phosphorus Magnesium Total Bilirubin AST ALT Ammonia Lactate Dehydrogenase Total Creatine Kinase CK-MB (CK-2) Troponin T NT-Pro-B Natriuret Pep Total Protein Albumin Triglycerides TSH Arterial Blood Glucose 149 H Arterial Blood Ionized Calcium Urine pH Urine WBC (Auto) Urine Creatinine 10/23/20 10/23/20 10/23/20 05:39 06:00 11:32 WBC RBC Hgb Hct RDW Lymph % (Auto) [place] % (Auto) Lymph # (Auto) [place] # (Auto) Seg Neutrophils % Lymphocytes % (Manual) Monocytes % (Manual) Seg Neutrophils # Seg Neutrophils # Man Lymphocytes # (Manual) Monocytes # (Manual) D-Dimer Heparin Anti-Xa Level ABG pH POC ABG pCO2 POC ABG pO2 ABG pO2 ABG HCO3 ABG O2 Saturation ABG Base Excess ABG Hemoglobin ABG Oxyhemoglobin ABG Sodium ABG Potassium ABG Chloride ABG Glucose VBG pH Oxyhemoglobin Carboxyhemoglobin Sodium 146 H Potassium Chloride Carbon Dioxide 35 H BUN 92 H Creatinine 2.0 H Glucose 144 H POC Glucose 139 H 176 H Lactic Acid Calcium Phosphorus Magnesium Total Bilirubin AST ALT Ammonia Lactate Dehydrogenase Total Creatine Kinase CK-MB (CK-2) Troponin T NT-Pro-B Natriuret Pep Total Protein Albumin Triglycerides TSH Arterial Blood Glucose Arterial Blood Ionized Calcium Urine pH Urine WBC (Auto) Urine Creatinine 10/23/20 10/23/20 10/24/20 11:34 17:55 05:33 WBC RBC Hgb Hct RDW Lymph % (Auto) [place] % (Auto) Lymph # (Auto) [place] # (Auto) Seg Neutrophils % Lymphocytes % (Manual) Monocytes % (Manual) Seg Neutrophils # Seg Neutrophils # Man Lymphocytes # (Manual) Monocytes # (Manual) D-Dimer Heparin Anti-Xa Level ABG pH POC ABG pCO2 POC ABG pO2 ABG pO2 ABG HCO3 ABG O2 Saturation ABG Base Excess ABG Hemoglobin ABG Oxyhemoglobin ABG Sodium ABG Potassium ABG Chloride ABG Glucose VBG pH Oxyhemoglobin Carboxyhemoglobin Sodium 147 H Potassium Chloride Carbon Dioxide 32 H BUN 76 H Creatinine 1.7 H Glucose 172 H POC Glucose 173 H 135 H Lactic Acid Calcium Phosphorus Magnesium Total Bilirubin AST ALT Ammonia Lactate Dehydrogenase Total Creatine Kinase CK-MB (CK-2) Troponin T NT-Pro-B Natriuret Pep Total Protein Albumin Triglycerides TSH Arterial Blood Glucose Arterial Blood Ionized Calcium Urine pH Urine WBC (Auto) Urine Creatinine 10/24/20 10/24/20 10/24/20 05:41 12:09 18:09 WBC RBC Hgb Hct RDW Lymph % (Auto) [place] % (Auto) Lymph # (Auto) [place] # (Auto) Seg Neutrophils % Lymphocytes % (Manual) Monocytes % (Manual) Seg Neutrophils # Seg Neutrophils # Man Lymphocytes # (Manual) Monocytes # (Manual) D-Dimer Heparin Anti-Xa Level ABG pH POC ABG pCO2 POC ABG pO2 ABG pO2 ABG HCO3 ABG O2 Saturation ABG Base Excess ABG Hemoglobin ABG Oxyhemoglobin ABG Sodium ABG Potassium ABG Chloride ABG Glucose VBG pH Oxyhemoglobin Carboxyhemoglobin Sodium Potassium Chloride Carbon Dioxide BUN Creatinine Glucose POC Glucose 156 H 154 H 132 H Lactic Acid Calcium Phosphorus Magnesium Total Bilirubin AST ALT Ammonia Lactate Dehydrogenase Total Creatine Kinase CK-MB (CK-2) Troponin T NT-Pro-B Natriuret Pep Total Protein Albumin Triglycerides TSH Arterial Blood Glucose Arterial Blood Ionized Calcium Urine pH Urine WBC (Auto) Urine Creatinine 10/24/20 10/25/20 10/25/20 23:39 05:29 08:55 WBC RBC Hgb Hct RDW Lymph % (Auto) [place] % (Auto) Lymph # (Auto) [place] # (Auto) Seg Neutrophils % Lymphocytes % (Manual) Monocytes % (Manual) Seg Neutrophils # Seg Neutrophils # Man Lymphocytes # (Manual) Monocytes # (Manual) D-Dimer Heparin Anti-Xa Level ABG pH POC ABG pCO2 POC ABG pO2 ABG pO2 ABG HCO3 ABG O2 Saturation ABG Base Excess ABG Hemoglobin ABG Oxyhemoglobin ABG Sodium ABG Potassium ABG Chloride ABG Glucose VBG pH Oxyhemoglobin Carboxyhemoglobin Sodium 150 H Potassium Chloride 108.3 H Carbon Dioxide 32 H BUN 57 H Creatinine 1.5 H Glucose 142 H POC Glucose 131 H 142 H Lactic Acid Calcium Phosphorus Magnesium Total Bilirubin AST ALT Ammonia Lactate Dehydrogenase Total Creatine Kinase CK-MB (CK-2) Troponin T NT-Pro-B Natriuret Pep Total Protein Albumin Triglycerides TSH Arterial Blood Glucose Arterial Blood Ionized Calcium Urine pH Urine WBC (Auto) Urine Creatinine 10/25/20 10/25/20 10/25/20 08:55 11:08 18:10 WBC 14.3 H RBC 3.57 L Hgb 10.3 L Hct 31.6 L RDW Lymph % (Auto) [place] % (Auto) Lymph # (Auto) [place] # (Auto) Seg Neutrophils % Lymphocytes % (Manual) Monocytes % (Manual) Seg Neutrophils # Seg Neutrophils # Man Lymphocytes # (Manual) Monocytes # (Manual) D-Dimer Heparin Anti-Xa Level ABG pH POC ABG pCO2 52.3 H POC ABG pO2 ABG pO2 ABG HCO3 ABG O2 Saturation ABG Base Excess ABG Hemoglobin 11.2 L ABG Oxyhemoglobin ABG Sodium ABG Potassium ABG Chloride 108.0 H ABG Glucose 167 H VBG pH Oxyhemoglobin Carboxyhemoglobin Sodium Potassium Chloride Carbon Dioxide BUN Creatinine Glucose POC Glucose 157 H Lactic Acid Calcium Phosphorus Magnesium Total Bilirubin AST ALT Ammonia Lactate Dehydrogenase Total Creatine Kinase CK-MB (CK-2) Troponin T NT-Pro-B Natriuret Pep Total Protein Albumin Triglycerides TSH Arterial Blood Glucose 167 H Arterial Blood Ionized Calcium Urine pH Urine WBC (Auto) Urine Creatinine 10/25/20 10/26/20 10/26/20 18:20 00:20 06:08 WBC RBC Hgb Hct RDW Lymph % (Auto) [place] % (Auto) Lymph # (Auto) [place] # (Auto) Seg Neutrophils % Lymphocytes % (Manual) Monocytes % (Manual) Seg Neutrophils # Seg Neutrophils # Man Lymphocytes # (Manual) Monocytes # (Manual) D-Dimer Heparin Anti-Xa Level ABG pH POC ABG pCO2 POC ABG pO2 ABG pO2 ABG HCO3 ABG O2 Saturation ABG Base Excess ABG Hemoglobin ABG Oxyhemoglobin ABG Sodium ABG Potassium ABG Chloride ABG Glucose VBG pH Oxyhemoglobin Carboxyhemoglobin Sodium Potassium Chloride Carbon Dioxide BUN Creatinine Glucose POC Glucose 127 H 108 H 119 H Lactic Acid Calcium Phosphorus Magnesium Total Bilirubin AST ALT Ammonia Lactate Dehydrogenase Total Creatine Kinase CK-MB (CK-2) Troponin T NT-Pro-B Natriuret Pep Total Protein Albumin Triglycerides TSH Arterial Blood Glucose Arterial Blood Ionized Calcium Urine pH Urine WBC (Auto) Urine Creatinine 10/26/20 10/26/20 10/26/20 07:38 07:38 11:28 WBC 13.5 H RBC 3.37 L Hgb 9.8 L Hct 30.0 L RDW Lymph % (Auto) [place] % (Auto) Lymph # (Auto) [place] # (Auto) Seg Neutrophils % Lymphocytes % (Manual) Monocytes % (Manual) Seg Neutrophils # Seg Neutrophils # Man Lymphocytes # (Manual) Monocytes # (Manual) D-Dimer Heparin Anti-Xa Level ABG pH POC ABG pCO2 POC ABG pO2 ABG pO2 ABG HCO3 ABG O2 Saturation ABG Base Excess ABG Hemoglobin ABG Oxyhemoglobin ABG Sodium ABG Potassium ABG Chloride ABG Glucose VBG pH Oxyhemoglobin Carboxyhemoglobin Sodium 149 H Potassium Chloride 107.6 H Carbon Dioxide 34 H BUN 49 H Creatinine 1.4 H Glucose 137 H POC Glucose 148 H Lactic Acid Calcium Phosphorus Magnesium Total Bilirubin AST ALT Ammonia Lactate Dehydrogenase Total Creatine Kinase CK-MB (CK-2) Troponin T NT-Pro-B Natriuret Pep Total Protein Albumin Triglycerides TSH Arterial Blood Glucose Arterial Blood Ionized Calcium Urine pH Urine WBC (Auto) Urine Creatinine 10/26/20 10/26/20 10/27/20 18:17 23:37 05:08 WBC RBC Hgb Hct RDW Lymph % (Auto) [place] % (Auto) Lymph # (Auto) [place] # (Auto) Seg Neutrophils % Lymphocytes % (Manual) Monocytes % (Manual) Seg Neutrophils # Seg Neutrophils # Man Lymphocytes # (Manual) Monocytes # (Manual) D-Dimer Heparin Anti-Xa Level ABG pH POC ABG pCO2 POC ABG pO2 ABG pO2 ABG HCO3 ABG O2 Saturation ABG Base Excess ABG Hemoglobin ABG Oxyhemoglobin ABG Sodium ABG Potassium ABG Chloride ABG Glucose VBG pH Oxyhemoglobin Carboxyhemoglobin Sodium Potassium Chloride Carbon Dioxide BUN Creatinine Glucose POC Glucose 121 H 152 H 120 H Lactic Acid Calcium Phosphorus Magnesium Total Bilirubin AST ALT Ammonia Lactate Dehydrogenase Total Creatine Kinase CK-MB (CK-2) Troponin T NT-Pro-B Natriuret Pep Total Protein Albumin Triglycerides TSH Arterial Blood Glucose Arterial Blood Ionized Calcium Urine pH Urine WBC (Auto) Urine Creatinine 10/27/20 10/27/20 10/27/20 07:30 07:30 11:59 WBC RBC 3.46 L Hgb 10.2 L Hct 30.9 L RDW Lymph % (Auto) [place] % (Auto) Lymph # (Auto) [place] # (Auto) Seg Neutrophils % Lymphocytes % (Manual) Monocytes % (Manual) Seg Neutrophils # Seg Neutrophils # Man Lymphocytes # (Manual) Monocytes # (Manual) D-Dimer Heparin Anti-Xa Level ABG pH POC ABG pCO2 POC ABG pO2 ABG pO2 ABG HCO3 ABG O2 Saturation ABG Base Excess ABG Hemoglobin ABG Oxyhemoglobin ABG Sodium ABG Potassium ABG Chloride ABG Glucose VBG pH Oxyhemoglobin Carboxyhemoglobin Sodium 146 H Potassium Chloride Carbon Dioxide 34 H BUN 45 H Creatinine Glucose 131 H POC Glucose 143 H Lactic Acid Calcium Phosphorus Magnesium Total Bilirubin AST ALT Ammonia Lactate Dehydrogenase Total Creatine Kinase CK-MB (CK-2) Troponin T NT-Pro-B Natriuret Pep Total Protein Albumin Triglycerides TSH Arterial Blood Glucose Arterial Blood Ionized Calcium Urine pH Urine WBC (Auto) Urine Creatinine 10/27/20 10/27/20 10/28/20 18:52 23:03 07:00 WBC RBC Hgb Hct RDW Lymph % (Auto) [place] % (Auto) Lymph # (Auto) [place] # (Auto) Seg Neutrophils % Lymphocytes % (Manual) Monocytes % (Manual) Seg Neutrophils # Seg Neutrophils # Man Lymphocytes # (Manual) Monocytes # (Manual) D-Dimer Heparin Anti-Xa Level ABG pH POC ABG pCO2 POC ABG pO2 ABG pO2 ABG HCO3 ABG O2 Saturation ABG Base Excess ABG Hemoglobin ABG Oxyhemoglobin ABG Sodium ABG Potassium ABG Chloride ABG Glucose VBG pH Oxyhemoglobin Carboxyhemoglobin Sodium 147 H Potassium Chloride Carbon Dioxide 35 H BUN 39 H Creatinine Glucose 133 H POC Glucose 119 H 158 H Lactic Acid Calcium Phosphorus Magnesium Total Bilirubin AST ALT Ammonia Lactate Dehydrogenase Total Creatine Kinase CK-MB (CK-2) Troponin T NT-Pro-B Natriuret Pep Total Protein Albumin Triglycerides TSH Arterial Blood Glucose Arterial Blood Ionized Calcium Urine pH Urine WBC (Auto) Urine Creatinine 10/28/20 10/28/20 10/28/20 09:00 11:47 17:15 WBC 12.5 H RBC 3.58 L Hgb 10.5 L Hct 32.1 L RDW Lymph % (Auto) [place] % (Auto) Lymph # (Auto) [place] # (Auto) Seg Neutrophils % Lymphocytes % (Manual) Monocytes % (Manual) Seg Neutrophils # Seg Neutrophils # Man Lymphocytes # (Manual) Monocytes # (Manual) D-Dimer Heparin Anti-Xa Level ABG pH POC ABG pCO2 POC ABG pO2 ABG pO2 ABG HCO3 ABG O2 Saturation ABG Base Excess ABG Hemoglobin ABG Oxyhemoglobin ABG Sodium ABG Potassium ABG Chloride ABG Glucose VBG pH Oxyhemoglobin Carboxyhemoglobin Sodium Potassium Chloride Carbon Dioxide BUN Creatinine Glucose POC Glucose 129 H 109 H Lactic Acid Calcium Phosphorus Magnesium Total Bilirubin AST ALT Ammonia Lactate Dehydrogenase Total Creatine Kinase CK-MB (CK-2) Troponin T NT-Pro-B Natriuret Pep Total Protein Albumin Triglycerides TSH Arterial Blood Glucose Arterial Blood Ionized Calcium Urine pH Urine WBC (Auto) Urine Creatinine 10/28/20 10/29/20 10/29/20 23:31 04:23 04:23 WBC 13.6 H RBC 3.47 L Hgb 10.5 L Hct 30.7 L RDW 15.4 H Lymph % (Auto) [place] % (Auto) Lymph # (Auto) [place] # (Auto) Seg Neutrophils % Lymphocytes % (Manual) Monocytes % (Manual) Seg Neutrophils # Seg Neutrophils # Man Lymphocytes # (Manual) Monocytes # (Manual) D-Dimer Heparin Anti-Xa Level ABG pH POC ABG pCO2 POC ABG pO2 ABG pO2 ABG HCO3 ABG O2 Saturation ABG Base Excess ABG Hemoglobin ABG Oxyhemoglobin ABG Sodium ABG Potassium ABG Chloride ABG Glucose VBG pH Oxyhemoglobin Carboxyhemoglobin Sodium Potassium Chloride Carbon Dioxide 35 H BUN 34 H Creatinine Glucose 107 H POC Glucose 138 H Lactic Acid Calcium Phosphorus Magnesium Total Bilirubin AST ALT Ammonia Lactate Dehydrogenase Total Creatine Kinase CK-MB (CK-2) Troponin T NT-Pro-B Natriuret Pep Total Protein Albumin Triglycerides TSH Arterial Blood Glucose Arterial Blood Ionized Calcium Urine pH Urine WBC (Auto) Urine Creatinine 10/29/20 10/29/20 10/29/20 05:21 11:49 23:19 WBC RBC Hgb Hct RDW Lymph % (Auto) [place] % (Auto) Lymph # (Auto) [place] # (Auto) Seg Neutrophils % Lymphocytes % (Manual) Monocytes % (Manual) Seg Neutrophils # Seg Neutrophils # Man Lymphocytes # (Manual) Monocytes # (Manual) D-Dimer Heparin Anti-Xa Level ABG pH POC ABG pCO2 POC ABG pO2 ABG pO2 ABG HCO3 ABG O2 Saturation ABG Base Excess ABG Hemoglobin ABG Oxyhemoglobin ABG Sodium ABG Potassium ABG Chloride ABG Glucose VBG pH Oxyhemoglobin Carboxyhemoglobin Sodium Potassium Chloride Carbon Dioxide BUN Creatinine Glucose POC Glucose 115 H 124 H 129 H Lactic Acid Calcium Phosphorus Magnesium Total Bilirubin AST ALT Ammonia Lactate Dehydrogenase Total Creatine Kinase CK-MB (CK-2) Troponin T NT-Pro-B Natriuret Pep Total Protein Albumin Triglycerides TSH Arterial Blood Glucose Arterial Blood Ionized Calcium Urine pH Urine WBC (Auto) Urine Creatinine 10/30/20 10/30/20 10/30/20 04:59 05:10 11:52 WBC RBC Hgb Hct RDW Lymph % (Auto) [place] % (Auto) Lymph # (Auto) [place] # (Auto) Seg Neutrophils % Lymphocytes % (Manual) Monocytes % (Manual) Seg Neutrophils # Seg Neutrophils # Man Lymphocytes # (Manual) Monocytes # (Manual) D-Dimer Heparin Anti-Xa Level ABG pH POC ABG pCO2 POC ABG pO2 ABG pO2 ABG HCO3 ABG O2 Saturation ABG Base Excess ABG Hemoglobin ABG Oxyhemoglobin ABG Sodium ABG Potassium ABG Chloride ABG Glucose VBG pH Oxyhemoglobin Carboxyhemoglobin Sodium Potassium Chloride Carbon Dioxide 34 H BUN 33 H Creatinine Glucose 128 H POC Glucose 126 H 132 H Lactic Acid Calcium Phosphorus Magnesium Total Bilirubin AST ALT Ammonia Lactate Dehydrogenase Total Creatine Kinase CK-MB (CK-2) Troponin T NT-Pro-B Natriuret Pep Total Protein Albumin Triglycerides TSH Arterial Blood Glucose Arterial Blood Ionized Calcium Urine pH Urine WBC (Auto) Urine Creatinine 10/30/20 10/30/20 10/31/20 16:59 23:19 04:00 WBC RBC Hgb Hct RDW Lymph % (Auto) [place] % (Auto) Lymph # (Auto) [place] # (Auto) Seg Neutrophils % Lymphocytes % (Manual) Monocytes % (Manual) Seg Neutrophils # Seg Neutrophils # Man Lymphocytes # (Manual) Monocytes # (Manual) D-Dimer Heparin Anti-Xa Level ABG pH POC ABG pCO2 POC ABG pO2 ABG pO2 ABG HCO3 ABG O2 Saturation ABG Base Excess ABG Hemoglobin ABG Oxyhemoglobin ABG Sodium ABG Potassium ABG Chloride ABG Glucose VBG pH Oxyhemoglobin Carboxyhemoglobin Sodium Potassium Chloride Carbon Dioxide 38 H BUN 32 H Creatinine Glucose 121 H POC Glucose 118 H 138 H Lactic Acid Calcium Phosphorus Magnesium Total Bilirubin AST ALT Ammonia Lactate Dehydrogenase Total Creatine Kinase CK-MB (CK-2) Troponin T NT-Pro-B Natriuret Pep Total Protein Albumin Triglycerides TSH Arterial Blood Glucose Arterial Blood Ionized Calcium Urine pH Urine WBC (Auto) Urine Creatinine 10/31/20 05:13 WBC RBC Hgb Hct RDW Lymph % (Auto) [place] % (Auto) Lymph # (Auto) [place] # (Auto) Seg Neutrophils % Lymphocytes % (Manual) Monocytes % (Manual) Seg Neutrophils # Seg Neutrophils # Man Lymphocytes # (Manual) Monocytes # (Manual) D-Dimer Heparin Anti-Xa Level ABG pH POC ABG pCO2 POC ABG pO2 ABG pO2 ABG HCO3 ABG O2 Saturation ABG Base Excess ABG Hemoglobin ABG Oxyhemoglobin ABG Sodium ABG Potassium ABG Chloride ABG Glucose VBG pH Oxyhemoglobin Carboxyhemoglobin Sodium Potassium Chloride Carbon Dioxide BUN Creatinine Glucose POC Glucose 110 H Lactic Acid Calcium Phosphorus Magnesium Total Bilirubin AST ALT Ammonia Lactate Dehydrogenase Total Creatine Kinase CK-MB (CK-2) Troponin T NT-Pro-B Natriuret Pep Total Protein Albumin Triglycerides TSH Arterial Blood Glucose Arterial Blood Ionized Calcium Urine pH Urine WBC (Auto) Urine Creatinine Chest x-ray: pending Allied health notes reviewed: nursing
--- NOTE | 2020-10-31 14:28 | Progress Note ---
Assessment and Plan he pt is a 55-year-old -[place]ag[place] male with a past medical history of hypertension, asthma, obesity. He is intubated and sedated on evaluation and thus HPI is obtained per the chart. Pt presented to ED after Covid vaccine and passed out with seizure like activity in the car at the emergency room bay. Patient was found to be unresponsive and with no pulse. ACLS protocol was initiated from the car to the emergency room with continued ACLS protocol. Patient was intubated and after couple of epi ROSC obtained. Central line was p laced and patient was also started on pressors. Patient did not have any fever shortness of breath or cough or any symptoms prior to the COVID-19 vaccination. Patient coded twice in the emergency room. One before the imaging studies and once after the imaging studies. Pt remains intubated, intermittently sedated, intermittent blinking of eyes to painful stimulus (sternal rub) noted. Neurology f/u noted - pt with suspected anoxic brain injury. Brain MRI shows diffuse restricted diffusion and increased T2 signal in the cerebral cortex, findings can be seen in setting of anoxic brain injury and/or status epilepticus. Per primary team, pt is not tolerating weaning from ventilator. Pt is being considered for Trach & Peg. Pt is moderate cardiovascular risk patient going for moderate risk procedure. no cardiac contraindications for trach and peg. tte reviewed - EF 55-60%, mod LVH, mild diastolic dysfunction. (10/31/20) Pt is s/p Trach and PEG placement. Unresponsive. Tele reviewed: SR 62. several short bouts of afib CVR. Paroxismal Afib RVR Currently in sinus rhythm. o systemic AC at this time in regards to paroxysmal AFib/AFlutter given h/o GI bleeding while on heparin gtt. s/p Cardiac Arrest Pt was admitted as a witnessed arrest per HPI. Acute Respiratory Failure s/p Trach & PEG. Pt is on ventilator mgmt per special crimes investigator. Seizure Currently on Keppra gtt. HTN Continue current antihypertensive regimen: Amlodipine 10mg, Clonidine patch, Hydralazine 100mg TID, Metoprolol 100mg TID. repeat BMP in am. DVT prophylaxis No AC in setting of Anemia requiring transfusion and Hx of DVT. Continue SCD therapy. Pt is in stable cardiac status. Nothing further to add from cardiology standpoint. Will follow. The patient has been seen in conjunction with Dr. Bill Steen who agrees with the assessment and plan of care. - Patient Problems (1) AMS (altered mental status) Current Visit: Yes Status: Acute (2) Cardiopulmonary arrest with successful resuscitation Current Visit: Yes Status: Acute (3) Acute respiratory failure Current Visit: Yes Status: Acute Qualifiers: Respiratory failure complication: hypoxia and hypercapnia Qualified Code(s): J96.01 - Acute respiratory failure with hypoxia; J96.02 - Acute respiratory failure with hypercapnia (4) Bilateral pneumonia Current Visit: Yes Status: Acute (5) Sepsis with hypotension Current Visit: Yes Status: Acute (6) Person under investigation for COVID-19 Current Visit: Yes Status: Ruled-out (7) Seizure Current Visit: Yes Status: Suspected (8) NSTEMI (non-ST elevated myocardial infarction) Current Visit: Yes Status: Acute (9) MOE (acute kidney injury) Current Visit: Yes Status: Acute (10) GI bleed Current Visit: Yes Status: Acute (11) Acute heart failure with preserved ejection fraction (HFpEF) Current Visit: Yes Status: Acute (12) Hypernatremia Current Visit: Yes Status: Acute (13) Atrial fibrillation and flutter Current Visit: Yes Status: Acute (14) Anemia Current Visit: Yes Status: Acute Subjective Date of service: 10/31/20 Principal diagnosis: Cardiac arrest; Septic Shock; Ac. hypoxemic & hypercapnic resp failure; MOE Interval history: Pt is s/p Trach and PEG placement. Unresponsive. Tele reviewed: SR 62. several short bouts of afib CVR. Objective Last Vital Signs Temp 98.2 F 10/31/20 12:00 Pulse 65 10/31/20 14:00 Resp 16 10/31/20 14:00 BP 127/61 10/31/20 14:00 Pulse Ox 100 10/31/20 14:00 - Physical Examination General: Other (intubated) HEENT: Positive: Normocephaly Neck: Positive: neck supple, trachea midline, Other (Tracheostomy in place.) Cardiac: Positive: Reg Rate and Rhythm, S1/S2 Lungs: Positive: Ventilated Respirations Neuro: Positive: Other (intubated) Abdomen: Positive: Soft, Active Bowel Sounds Skin: Negative: Rash Extremities: Present: upper extr. pulses, lower extr. pulses. Absent: edema - Labs and Meds Comprehensive Metabolic Panel 10/31/20 Range/Units 04:00 Sodium 144 (137-145) mmol/L Potassium 4.0 (3.6-5.0) mmol/L Chloride 102.9 (98-107) mmol/L Carbon Dioxide 38 H (22-30) mmol/L BUN 32 H (9-20) mg/dL Creatinine 1.2 (0.8-1.3) mg/dL Glucose 121 H (75-100) mg/dL Calcium 8.6 (8.4-10.2) mg/dL - Imaging and Cardiology EKG: report reviewed, image reviewed Echo: report reviewed (10/10/2020 - mod LVH, EF 55-60%, mild diastolic dysfunction) - Telemetry EKG Rhythm: Sinus Rhythm - EKG Sinus rhythms and dysrhythmias: sinus rhythm Repolarization changes or abnormalities: ST suggestive of injury, Q-T interval prolongation - Allied health notes Allied health notes reviewed: nursing
--- NOTE | 2020-10-31 14:54 | XRay Report ---
CHEST 1 VIEW INDICATION: Pneumonia. COMPARISON: 10/22/2020 FINDINGS: Support devices: The endotracheal tube is been removed. A tracheostomy has been inserted which appear s in good position. Left arm PICC terminates in the mid to lower SVC. Heart: Stable moderate cardiomegaly. Lungs/Pleura: Mild central pulmonary venous congestion is appreciated. No evidence for infiltrate, pl eural effusion or pneumothorax. Additional findings: None. IMPRESSION: Mild cardiomegaly and pulmonary venous congestion. Signer Name: Uziel Awan Jr, MD Signed: 10/31/2020 2:50 PM Workstation Name: [id number]
--- NOTE | 2020-10-31 15:54 | Progress Note ---
Assessment and Plan SARS CoV2 PCR: negative. 10/10/2020 blood culture: No growth 10/10/2020 ET aspirate culture: Usual respiratory antonio 10/11/2020 urine culture: no growth 10/18/2020 blood culture: No growth today 10/18/2020 tracheal aspirate date: MRSA 10/20/2020 right nare MRSA A/P: 55-year-old male with hypertension, asthma, obesity came into the emergency room after receiving the Covid vaccine and passing out in the car at the emergency room bay. Patient was found to be unresponsive with no pulse, ACLS was initiated: #Sepsis, likely secondary to pneumonia. COVID negative. No fever for 48 hours, leukocytosis is downtrending, noted right nostril copious purulunce on 10/18-10/20 now resolved. ?sinusitis +/- UTI +/-MRSA pneumonia. #Right-sided pneumonia: Possible aspiration during ACLS. Procalcitonin low. Chest x-ray with persistent lung opacities. Tracheal aspirate now with MRSA. Patient with persistent fever. Completed 9 days of cefepime. #Presumed right sided sinusitis: culture +MRSA, left NGT removed #Acute hypoxic respiratory failure: On mechanical ventilation. #MOE: Renally dose antibiotics. Worsening. Renal on board. #Elevated LFTs: Likely from sepsis #Urine tox screen positive for THC #Acute encephalopathy: neurology on board, evaluation in process. #UTI: Urine culture no growth. Repeat UA with worsening pyuria. Completed 9 days of cefepime. #Anoxic brain injury Recs: -Completed linezolid. -May be some element of central fevers given anoxic brain injury. Patient with anoxic brain injury, poor prognosis. ID will sign off. Please call with questions. Kelin Baumann MD [facility] ([facility] O: [phone] F: [phone] Subjective Date of service: 10/31/20 Principal diagnosis: Cardiac arrest; Septic Shock; Ac. hypoxemic & hypercapnic resp failure; MOE Interval history: Afebrile, no acute changes. Imaging personally reviewed: Chest x-ray: Pulmonary venous congestion. Objective - Exam Narrative Exam: General appearance: Open eyes, intubated Eyes: anicteric sclerae, moist conjunctivae; no lid-lag; PERRLA HENT: Normocephalic, Atraumatic; normal external ears, oropharynx endotracheal tube in place Neck: supple, tracheal midline, no JVD Lungs: Bilateral rhonchi CV: RRR no murmur Abdomen: Soft, nontender Extremities: no edema, no cyanosis Skin: No rash. Psych: No agitated Neuro: Alert does not follow commands - Constitutional Vitals: Vital Signs Temp Pulse Resp BP Pulse Ox 98.2 F 65 16 127/61 100 10/31/20 12:00 10/31/20 14:00 10/31/20 14:00 10/31/20 14:00 10/31/20 14:00 Temperature -Last 24 Hours Temperature 98.2 F Temperature 98.6 F Temperature 99.1 F Temperature 99.1 F Temperature 99.4 F Temperature 98.9 F Temperature 98.9 F Temperature 99.2 F - Labs CBC & Chem 7: 10/29/20 04:23 10/31/20 04:00 Labs: Abnormal lab results 10/30/20 10/30/20 10/31/20 Range/Units 16:59 23:19 04:00 Carbon Dioxide 38 H (22-30) mmol/L BUN 32 H (9-20) mg/dL Glucose 121 H (75-100) mg/dL POC Glucose 118 H 138 H (70-105) mg/dL 10/31/20 Range/Units 05:13 Carbon Dioxide (22-30) mmol/L BUN (9-20) mg/dL Glucose (75-100) mg/dL POC Glucose 110 H (70-105) mg/dL
--- NOTE | 2020-10-31 16:18 | Progress Note ---
<JOIJOISee - Last Filed: 10/31/20 16:13> Assessment and Plan Assessment and plan: This is a 55-year-old male with hypertension, asthma, obesity who was admitted on 10/10 after cardiac arrest x2 (supposedly after COVID-19 vaccine injection), sepsis, right-sided pneumonia, NSTEMI type II, acute heart failure, acute hypoxic respiratory failure, acute kidney injury and anoxic brain injury. Sepsis s/p multiple Cardiac Arrests Right-sided pneumonia MRSA in tracheal aspirate NSTEMI type II Acute heart failure Hypernatremia Afib/Alutter Leukocytosis Hyponatremia Acute hypoxic respiratory failure Acute kidney injury Transaminitis HTN Obesity -Infectious disease, CCM, GI, nephrology, cardiology, surgery consulted, appreciate recommendations -Antibiotic therapy -10/18 recultured (blood/sputum/nasal discharge and urinalysis), tracheal aspirate with MRSA -S/p Linezolid -Continue antihypertensive regimen (changed to p.o.), titrate as needed -s/p IV amiodarone for A. fib/a flutter now on p.o. beta-shital -Trend CBC, BMP, LFT -Continue mechanical ventilation, wean as tolerated, VAP bundle -Avoid nephrotoxic medications, strict intake and output, renal ultrasound shows no obstruction -10/10 echocardiogram shows left internal systolic function normal, moderate concentric left ventricle hypertrophy, mild to side diastolic dysfunction, LVEF 55 to 60% with no pericardial effusion -Bilateral Doppler ultrasound negative for DVT/SVT which shows bilateral popliteal cysts -MRI Brain shows restricted diffusion and increased T2 signal cerebral cortex which can be seen in the setting of anoxic brain injury and/ or status epilepticus. -Repeat EEG shows significant generalized slowing compatible with to moderate severe diffuse neuropathy recently compatible with anoxic/ischemic encephalopathy -s/p D5W at 50ml/hr x 1 liter, currently on tube feedings and tolerating -Trach collar trials starting 10/31 GI/DVT prophylaxis: SCDs to bilateral lower extremities while in bed, PPI, Heparin subq Dispo: ICU/ possible LTACH The high probability of a clinically significant, sudden or life threatening deterioration of the [multi] system(s) required my full and direct attention, intervention and personal management. The aggregate critical care time was [35] minutes. This time is in addition to time spent performing reported procedures but includes the following: [x] Data Review and interpretation [x] Patient assessment and monitoring of vital signs [x] Documentation [x] Medication orders and management History Interval history: This is a 55-year-old male with hypertension, asthma, obesity in the emergency by presented to the emergency department on 10/10 after receiving a Covid vaccine being found unresponsive in his car in the emergency room bay with no pulse and ACLS protocol was initiated from his car to emergency room #21 where it was continued. Patient was intubated after ROSC was achieved and a central line was placed and the patient was initiated on pressors. In the emergency room patient seems to have seizure-like activity and then collapsed and was unresponsive with no palpable pulse and ACLS was again initiated patient with achievement of ROSC. Patient again coded with ACLS protocol in the CT room. Upon arrival to the ICU patient again coded and ROSC was achieved and he was placed on epinephrine, Lasix, heparin and sodium bicarbonate drip and sedated with propofol. An NG tube was placed, A-line was placed. Patient was admitted to the hospitalist service with consult to [facility], nephrology, infectious disease and cardiology. 10/11: Patient COVID-19 PCR is pending and he remains on mechanical ventilation, examination on assist control 400/30/12/0.95. Patient is scheduled for an echocardiogram and we will obtain bilateral lower extremity Doppler ultrasound given elevated D-dimer. Patient was supposed to have a CTA chest when he coded yesterday. We will begin trickle feeding. This morning patient was on a heparin drip and was noted to have bloody drainage from his NG tube. Heparin drip was discontinued. 10/12: Patient remains on propofol and Lasix drip at the time my examination and he is on assist control 400/25/12/0.60. Patient is hypokalemic this morning which was repleted. Nephrology discontinued Lasix drip and Diamox. Patient is hypertensive and has been started on hydralazine and beta-shital IV. He has been titrated off his vasopressors since yesterday. Vancomycin discontinued. Patient is currently on cefepime and azithromycin. 10/13: Sedation vacation attempted today and patient was not responsive to verbal or painful stimuli, does not track or focus or follow commands. This morning the patient has some respiratory alkalosis on ABG, hypernatremia and metabolic alkalosis on BMP. His kidney functions has improved slightly. Patient still has leukocytosis and infectious disease was like to continue antibiotic therapy. GI evaluated the patient yesterday and started the patient on PPI does not plan to scope at this time. At the time my examination patient assist-control 400/20/12/0.40 and sedated on propofol at 20. 4/2: GI has recommended a CT abdomen since there is increased output from OG tube and an MRI brain without contrast has been ordered per neurology recommendations. EEG is pending and the patient has been started on Keppra per neurology.. Nutrition has been consulted for initiation of parenteral nutrition. Patient remains sedated with propofol and his hypernatremia, l eukocytosis, acute kidney injury and metabolic alkalosis is improving. Patient has hypokalemia today which was repleted. At the time of my examination patient was on assist control 400/14/10/0.40 and CCM has dropped his rate to 12 and PEEP to 8. We have labs ordered for a.m. He was given a clonidine patch given persistent hypertension and he remains on D5 water per nephrology. 3: This morning patient was started to have a low-grade fever and he will continue antibiotic therapy per infectious disease. He will remove Tuttle catheter today and place a condom cath. Patient's renal function is worsening with a BUN/creatinine of 57/2.4 today and he has hyperphosphatemia at 5.2. This morning the time my examination patient is sedated on fentanyl and has TPN infusing. He is on assist control 400/12/8/0.35. Per GI we will start trial of tube feedings initiation has been reconsulted for orders. 10/18: Patient was febrile overnight and infectious disease has recultured (blood/sputum/right nostril culture) and sent in urinalysis. Cefepime was extended due to high fever and was started on vancomycin. Tube feeding is at goal and we will discontinue his parenteral nutrition. Patient is unable to obtain his MRI due to increased hypoxia and nasal secretions. He will be started on CPAP trials today. This time I examination patient was sedated on fentanyl and had PPN running at 42. His renal function tests have worsened and now has hyperchloremia. Hypernatremia has resolved. 10/19: Patient's T-max was 100.2 and he was pancultured yesterday, remains on antibiotic therapy and still has copious drainage from his nostrils. Patient still has leukocytosis however his/creatinine improved slightly to 3.1 from 3.3. Patient's urinalysis from yesterday shows pyuria. Patient's tracheal aspirate from yesterday grew Staph aureus. Patient is on cefepime and vancomycin. 10/20: This morning at the time my examination patient was CPAP trial of 10/6 and his T-max was 100.9. Patient sedated on fentanyl at 2 just received IV push fentanyl for tachycardia. Today his creatinine is 2.8 from 3.1 yesterday. Infectious disease has stopped cefepime and vancomycin and started linezolid and MRSA PCR is pending. Today removed his NG tube and replaced it with OG tube. We will keep the patient normal saline at 75 mL's per hour for 3 L. Patient developed A. fib/a flutter overnight and cardiology has increased his Lopressor and IV amiodarone. We requested neurology evaluation today. 10/21: Cardiology we will increase Lopressor to 3 times daily and discontinue his amiodarone drip. Infectious disease would like a sinus CT when feasible however patient did have a moment of desatting earlier this week when we attempted MRI brain. And again yesterday when we attempted a "trial run" with positioning at bedside Patient is on linezolid for 10 days per ID. 10/22/20; patient was seen and evaluated this morning, patient had low-grade fever overnight. Patient is on Lopressor per cardiology recommendation. Patient did not follow commands, no improvement in mental status. Evaluated by neurology yesterday and neurology once MRI or CAT scan but cannot be done because patient desats when he lies flat. Patient is on linezolid per ID recommendation. Continue NG tube feeding. Continue with Keppra. Patient is on assist control with PEEP of 6. Management plan was discussed with his yesterday. 10/23/2020; patient is on Zyvox for positive MRSA from tracheal aspirate and kellie al secretion culture. Patient's mentation did not improve and does not follow commands. He was reevaluated by neurology and recommend MRI once patient is able to tolerate. MRI could not be done, CT scan could not be done because the patient could not lie flat. Clinically patient looks like she has anoxic encephalopathy. Patient is on NG tube feeding and on mechanical ventilation. Patient is on Keppra. Management plan was discussed with his . 10/24: This morning the patient is on AC TV 400,R 16, Peep 6 and FiO2 of 30% and sedated on 1mcg of Fentayl. He is hypernatremic and his kidney function tests have slightly improved. RN will attempt to obtain MRI Brain today since the patient was able to tolerate a "trial run" of being flat. [facility] plans to resume CPAP trials once MRI obtained. 10/25: This morning the time of examination patient was on assist control tidal volume 400, rate 16, PEEP 6, FiO2 30% and he is currently on CPAP. His MRI brain finding is consistent with status epilepticus or anoxic brain injury. Patient is EEG pending. No acute overnight events reported. 10/26: Patient has been on a CPAP trial 14/6 which she has been tolerating. Surgery was consulted for trach/PEG. Patient's hypernatremia and hyperchloremia slightly better as well as his kidney functions. He has received cardiac clearance for his trach and PEG. No acute events reported overnight. 10/27: At the time my examination patient was on CPAP trial 15/6 and 30% FiO2. Patient's electrolyte abnormalities were improving and sources kidney function. His T-max overnight was 99.3 and he remains on linezolid. No acute events reported overnight. 10/28: Yesterday patient had a trach and PEG placed bedside during. Patient remains n.p.o. as he has not been cleared by surgery to resume p.o. intake. Today he has slight leukocytosis which is likely reactive, hyponatremia, metabolic alkalosis however his kidney function continues to improve. No acute events overnight. 10/29: Plan to start tube feeding today, patient remains on mechanical ventilation with trach tube. Remains comatose without any change in mental status. Called and updated. 10/30: Vitals stable, patient remains on trach tube with ventilator. Tolerating tube feeding, otherwise clinically unchanged. Continue to provide supportive care and wean off from vent as tolerated. 10/31: No acute events reported overnight. Patient is CPAP at the time my examination however he will be tried on trach collar and we will obtain an ABG within 2 hours. Hospitalist Physical - Constitutional Vitals: Temp Pulse Resp BP Pulse Ox 98.2 F 65 16 127/61 100 10/31/20 12:00 10/31/20 14:00 10/31/20 14:00 10/31/20 14:00 10/31/20 14:00 General appearance: Present: no acute distress, well-nourished, other (Resting c omfortably on mechanical ventilation, opens eye spontanously) - EENT Eyes: Present: PERRL ENT: poor dentition - Neck Neck: Present: normal ROM - Respiratory Respiratory effort: normal Respiratory: bilateral: diminished - Cardiovascular Rhythm: regular Heart Sounds: Present: S1 & S2. Absent: diastolic murmur - Extremities Extremities: no ischemia, pulses intact, pulses symmetrical, normal temperature - Abdominal General gastrointestinal: soft, non-tender, non-distended, normal bowel sounds - Integumentary Integumentary: Present: warm, dry - Psychiatric Psychiatric: other (Unresponsive on mechanical ventilation) - Neurologic Neurologic: other (Unresponsive on mechanical ventilation) - Allied Health Allied health notes reviewed: nursing, RT, social work HEART Score - HEART Score EKG: Non-specific Age: 45-65 Troponin: Troponin T 0.125 ng/mL (0.00-0.029) H* D 10/12/20 04:00 Troponin: 1-3x normal limit - Critical Actions Critical Actions: 4-6 pts:12-16.6% risk of adverse cardiac event. Should be admitted Results - Labs CBC & Chem 7: 10/29/20 04:23 10/31/20 04:00 Labs: Laboratory Last Values WBC 13.6 K/mm3 (4.5-11.0) H 10/29/20 04:23 RBC 3.47 M/mm3 (3.65-5.03) L 10/29/20 04:23 Hgb 10.5 gm/dl (11.8-15.2) L 10/29/20 04:23 Hct 30.7 % (35.5-45.6) L 10/29/20 04:23 MCV 88 fl (84-94) 10/29/20 04:23 MCH 30 pg (28-32) 10/29/20 04:23 MCHC 34 % (32-34) 10/29/20 04:23 RDW 15.4 % (13.2-15.2) H 10/29/20 04:23 Plt Count 316 K/mm3 (140-440) 10/29/20 04:23 Lymph % (Auto) 4.2 % (13.4-35.0) L 10/19/20 04:55 [place] % (Auto) 11.9 % (0.0-7.3) H 10/19/20 04:55 Eos % (Auto) 1.6 % (0.0-4.3) 10/19/20 04:55 Baso % (Auto) 0.3 % (0.0-1.8) 10/19/20 04:55 Lymph # (Auto) 0.6 K/mm3 (1.2-5.4) L 10/19/20 04:55 [place] # (Auto) 1.8 K/mm3 (0.0-0.8) H 10/19/20 04:55 Eos # (Auto) 0.2 K/mm3 (0.0-0.4) 10/19/20 04:55 Baso # (Auto) 0.1 K/mm3 (0.0-0.1) 10/19/20 04:55 Add Manual Diff Complete 10/10/20 18:18 Total Counted 100 10/10/20 18:18 Seg Neutrophils % 82.0 % (40.0-70.0) H 10/19/20 04:55 Seg Neuts % (Manual) 60.0 % (40.0-70.0) 10/10/20 18:18 Band Neutrophils % 27.0 % 10/10/20 18:18 Lymphocytes % (Manual) 4.0 % (13.4-35.0) L 10/10/20 18:18 Monocytes % (Manual) 9.0 % (0.0-7.3) H 10/10/20 18:18 Eosinophils % (Manual) 4.0 % (0.0-4.3) 10/10/20 10:48 Metamyelocytes % 1.0 % 10/10/20 10:48 Nucleated RBC % Not Reportable 10/10/20 18:18 Seg Neutrophils # 12.4 K/mm3 (1.8-7.7) H 10/19/20 04:55 Seg Neutrophils # Man 13.8 K/mm3 (1.8-7.7) H 10/10/20 18:18 Band Neutrophils # 6.2 K/mm3 10/10/20 18:18 Lymphocytes # (Manual) 0.9 K/mm3 (1.2-5.4) L 10/10/20 18:18 Abs React Lymphs (Man) 0.0 K/mm3 10/10/20 18:18 Monocytes # (Manual) 2.1 K/mm3 (0.0-0.8) H 10/10/20 18:18 Eosinophils # (Manual) 0.0 K/mm3 (0.0-0.4) 10/10/20 18:18 Basophils # (Manual) 0.0 K/mm3 (0.0-0.1) 10/10/20 18:18 Metamyelocytes # 0.0 K/mm3 10/10/20 18:18 Myelocytes # 0.0 K/mm3 10/10/20 18:18 Promyelocytes # 0.0 K/mm3 10/10/20 18:18 Blast Cells # 0.0 K/mm3 10/10/20 18:18 WBC Morphology Not Reportable 10/10/20 18:18 Hypersegmented Neuts Not Reportable 10/10/20 18:18 Hyposegmented Neuts Not Reportable 10/10/20 18:18 Hypogranular Neuts Not Reportable 10/10/20 18:18 Smudge Cells Not Reportable 10/10/20 18:18 Toxic Granulation Not Reportable 10/10/20 18:18 Toxic Vacuolation Not Reportable 10/10/20 18:18 Dohle Bodies Not Reportable 10/10/20 18:18 Pelger-Huet Anomaly Not Reportable 10/10/20 18:18 Dionicio Rods Not Reportable 10/10/20 18:18 Platelet Estimate Consistent w auto 10/10/20 18:18 Clumped Platelets Not Reportable 10/10/20 18:18 Plt Clumps, EDTA Not Reportable 10/10/20 18:18 Large Platelets Rare 10/10/20 18:18 Giant Platelets Rare 10/10/20 18:18 Platelet Satelliting Not Reportable 10/10/20 18:18 Plt Morphology Comment Not Reportable 10/10/20 18:18 RBC Morphology Not Reportable 10/10/20 18:18 Dimorphic RBCs Not Reportable 10/10/20 18:18 Polychromasia Not Reportable 10/10/20 18:18 Hypochromasia Not Reportable 10/10/20 18:18 Poikilocytosis Not Reportable 10/10/20 18:18 Anisocytosis Not Reportable 10/10/20 18:18 Microcytosis Not Reportable 10/10/20 18:18 Macrocytosis Not Reportable 10/10/20 18:18 Spherocytes Not Reportable 10/10/20 18:18 Pappenheimer Bodies Not Reportable 10/10/20 18:18 Sickle Cells Not Reportable 10/10/20 18:18 Target Cells Not Reportable 10/10/20 18:18 Tear Drop Cells Not Reportable 10/10/20 18:18 Ovalocytes Not Reportable 10/10/20 18:18 Helmet Cells Not Reportable 10/10/20 18:18 [place] Bodies Not Reportable 10/10/20 18:18 Hanna Rings Not Reportable 10/10/20 18:18 Eleanor Cells Not Reportable 10/10/20 18:18 Bite Cells Not Reportable 10/10/20 18:18 Crenated Cell Not Reportable 10/10/20 18:18 Elliptocytes Not Reportable 10/10/20 18:18 Acanthocytes (Spur) Not Reportable 10/10/20 18:18 Rouleaux Not Reportable 10/10/20 18:18 Hemoglobin C Crystals Not Reportable 10/10/20 18:18 Schistocytes Not Reportable 10/10/20 18:18 Malaria parasites Not Reportable 10/10/20 18:18 Mauricio Bodies Not Reportable 10/10/20 18:18 Hem Pathologist Commnt No 10/10/20 18:18 PT 13.5 Sec. (12.2-14.9) 10/28/20 07:00 INR 1.05 (0.87-1.13) 10/28/20 07:00 APTT 26.9 Sec. (24.2-36.6) 10/10/20 18:18 D-Dimer 679.5 ng/mlDDU (0-234) H 10/10/20 10:48 Heparin Anti-Xa Level 0.22 U.I./ml (0.3-0.7) L 10/11/20 08:35 ABG pH 7.424 (7.320-7.450) 10/25/20 18:10 POC ABG pCO2 52.3 mmHg (32.0-48.0) H 10/25/20 18:10 ABG pCO2 55.5 mm Hg 10/16/20 05:10 POC ABG pO2 97.1 mmHg (83-108) 10/25/20 18:10 ABG pO2 104.5 mm Hg (80.0-90.0) H 10/16/20 05:10 POC ABG HCO3 33.5 10/25/20 18:10 ABG HCO3 35.1 mmol/L (20.0-26.0) H 10/16/20 05:10 ABG O2 Saturation 97.4 (0-100) 10/25/20 18:10 ABG O2 Content 10.8 (0.0-44) 10/16/20 05:10 POC ABG Base Excess 7.8 10/25/20 18:10 ABG Base Excess 9.5 mmol/L (-2.0-3.0) H 10/16/20 05:10 ABG Hemoglobin 11.2 (12.0-17.5) L 10/25/20 18:10 ABG Oxyhemoglobin 96.2 (94-98) 10/25/20 18:10 ABG Carboxyhemoglobin 1.9 % (0.0-5.0) 10/16/20 05:10 ABG Methemoglobin 0.3 (0.0-1.5) 10/25/20 18:10 ABG Sodium 144.9 mmol/L (136.0-145.0) 10/25/20 18:10 ABG Potassium 3.8 mmol/L (3.40-4.50) 10/25/20 18:10 ABG Chloride 108.0 mmol/L (98-107) H 10/25/20 18:10 ABG Glucose 167 mg/dL (65-95) H 10/25/20 18:10 VBG pH 6.870 (7.320-7.420) L* 10/10/20 10:48 Oxyhemoglobin 95.3 % (95.0-99.0) 10/16/20 05:10 Carboxyhemoglobin 0.9 (0.5-1.5) 10/25/20 18:10 FiO2 35 % 10/16/20 05:10 FiO2 % 30 10/25/20 18:10 Sodium 144 mmol/L (137-145) 10/31/20 04:00 Potassium 4.0 mmol/L (3.6-5.0) 10/31/20 04:00 Chloride 102.9 mmol/L (98-107) 10/31/20 04:00 Carbon Dioxide 38 mmol/L (22-30) H 10/31/20 04:00 Anion Gap 7 mmol/L 10/31/20 04:00 BUN 32 mg/dL (9-20) H 10/31/20 04:00 Creatinine 1.2 mg/dL (0.8-1.3) 10/31/20 04:00 Estimated GFR > 60 ml/min 10/31/20 04:00 BUN/Creatinine Ratio 27 % 10/31/20 04:00 Glucose 121 mg/dL (75-100) H 10/31/20 04:00 POC Glucose 110 mg/dL (70-105) H 10/31/20 05:13 Hemoglobin A1c 6.0 % (4-6) 10/11/20 02:00 Lactic Acid 1.10 mmol/L (0.7-2.0) 10/13/20 04:52 Calcium 8.6 mg/dL (8.4-10.2) 10/31/20 04:00 Phosphorus 5.20 mg/dL (2.5-4.5) H D 10/17/20 03:32 Magnesium 2.30 mg/dL (1.7-2.3) 10/17/20 03:32 Ferritin 81.4 ng/mL (30.0-300.0) 10/10/20 10:48 Total Bilirubin 1.70 mg/dL (0.1-1.2) H 10/18/20 03:27 AST 37 units/L (5-40) 10/18/20 03:27 ALT 32 units/L (7-56) 10/18/20 03:27 Alkaline Phosphatase 97 units/L (35-129) 10/18/20 03:27 Ammonia 214.0 umol/L (25-60) H 10/10/20 10:46 Lactate Dehydrogenase 386 units/L (91-180) H 10/10/20 10:48 Total Creatine Kinase 1192 units/L (55-170) H 10/10/20 18:18 CK-MB (CK-2) 21.7 ng/mL (0.0-4.0) H 10/10/20 18:18 CK-MB (CK-2) Rel Index 1.8 (0-4) 10/10/20 18:18 Troponin T 0.125 ng/mL (0.00-0.029) H* D 10/12/20 04:00 C-Reactive Protein 0.90 mg/dL (0.00-1.30) 10/10/20 10:48 NT-Pro-B Natriuret Pep 1187 pg/mL (0-900) H 10/10/20 10:46 Total Protein 6.3 g/dL (6.3-8.2) 10/18/20 03:27 Albumin 3.1 g/dL (3.9-5) L 10/18/20 03:27 Albumin/Globulin Ratio 1.0 % 10/18/20 03:27 Triglycerides 278 mg/dL (2-149) H 10/13/20 04:52 Cholesterol 138 mg/dL (50-199) 10/10/20 18:18 LDL Cholesterol Direct 76 mg/dL (50-130) 10/10/20 18:18 HDL Cholesterol 49 mg/dL (40-59) 10/10/20 18:18 Cholesterol/HDL Ratio 2.81 % 10/10/20 18:18 Procalcitonin 4.98 ng/mL (<0.15) 10/15/20 04:12 TSH 6.260 mlU/mL (0.270-4.200) H 10/10/20 10:46 Arterial Blood Glucose 167 mg/dL (65-95) H 10/25/20 18:10 Arterial Blood Ionized Calcium 5.1 mg/dL (4.6-5.3) 10/25/20 18:10 Urine Color Angelica (Yellow) 10/18/20 Unknown Urine Turbidity Cloudy (Clear) 10/18/20 Unknown Urine pH 5.0 (5.0-7.0) 10/18/20 Unknown Ur Specific [place] 1.017 (1.003-1.030) 10/18/20 Unknown Urine Protein 100 mg/dl mg/dL (Negative) 10/18/20 Unknown Urine Glucose (UA) Neg mg/dL (Negative) 10/18/20 Unknown Urine Ketones Neg mg/dL (Negative) 10/18/20 Unknown Urine Blood Lg (Negative) 10/18/20 Unknown Urine Nitrite Neg (Negative) 10/18/20 Unknown Urine Bilirubin Neg (Negative) 10/18/20 Unknown Urine Urobilinogen 4.0 mg/dL (<2.0) 10/18/20 Unknown Ur Leukocyte Esterase Neg (Negative) 10/18/20 Unknown Urine WBC (Auto) 115.0 /HPF (0.0-6.0) H 10/18/20 Unknown Urine RBC (Auto) 98.0 /HPF (0.0-6.0) 10/18/20 Unknown U Epithel Cells (Auto) 2.0 /HPF (0-13.0) 10/18/20 Unknown Urine WBC Clumps 3+ /HPF 10/18/20 Unknown Urine Mucus Few /HPF 10/11/20 13:30 Urine Eosinophils None seen (None Seen) 10/11/20 13:30 Urine Creatinine 93.7 mg/dL (0.1-20.0) H 10/19/20 13:14 Urine Sodium 25 mmol/L 10/19/20 13:14 Urine Urea Nitrogen 845 10/19/20 13:14 Nasal Screen MRSA (PCR) Positive (Negative) 10/20/20 13:30 Random Vancomycin 5.8 ug/mL (0-40.0) 10/21/20 06:30 Urine Opiates Screen Negative 10/10/20 10:50 Urine Methadone Screen Negative 10/10/20 10:50 Ur Barbiturates Screen Negative 10/10/20 10:50 Ur Phencyclidine Scrn Negative 10/10/20 10:50 Ur Amphetamines Screen Negative 10/10/20 10:50 U Benzodiazepines Scrn Negative 10/10/20 10:50 Urine Cocaine Screen Negative 10/10/20 10:50 U Marijuana (THC) Screen Positive 10/10/20 10:50 Drugs of Abuse Note Disclamer 10/10/20 10:50 Plasma/Serum Alcohol < 0.01 % (0-0.07) 10/10/20 10:48 Coronavirus (PCR) Negative (Negative) 10/11/20 Unknown Blood Type AB POSITIVE 10/10/20 10:48 Antibody Screen Negative 10/10/20 10:48 Microbiology: Microbiology 10/20/20 12:35 Nose - Right Eye/Ear/Nose/Throat Culture - Final Methicillin Resist S. Aureus Tuttle/IV: Voiding Method Incontinent Active Medications - Current Medications Current Medications: Generic Name Dose Route Start Last Admin Trade Name Freq PRN Reason Stop Dose Admin Acetaminophen 650 mg 10/10/20 21:51 10/20/20 09:11 Acetaminophen 325 Mg Tab PO 650 mg Q4H PRN Administration Pain MILD(1-3)/Fever >100.5/SALVADOR Acetaminophen 650 mg 10/11/20 11:24 10/17/20 17:16 Acetaminophen 650 Mg Rect Supp NV 650 mg Q6H PRN Administration Fever >101 Albuterol 2.5 mg 10/11/20 13:12 Albuterol 2.5 Mg/3 Ml Nebu IH Q6HRT PRN Shortness Of Breath Amlodipine Besylate 10 mg 10/25/20 13:00 10/31/20 09:18 Amlodipine 10 Mg Tab PO 10 mg QDAY PEPITO Administration Lipase/Protease/Amylase 1 each 10/10/20 22:18 Lipase 10,500/Protease 25,000/Amylase 43,750 (Units) Dr Santana FEEDTUBE PRN PRN For Clogged Feeding Tube Clonidine HCl 0.3 mg 10/14/20 15:00 10/28/20 14:58 Clonidine Tts 0.3 Mg/24 Hr Patch TD 0.3 mg Fr PEPITO Administration Docusate Sodium 100 mg 10/16/20 22:00 10/31/20 09:18 Docusate Sodium 100 Mg/10 Ml Oral Liqd PO 100 mg BID PEPITO Administration Fentanyl 25 mcg 10/31/20 13:00 Fentanyl 100 Mcg/2 Ml Inj IV Q2H PRN ANALGESIA Fentanyl 25 mcg 10/31/20 14:00 Fentanyl 25 Mcg/Hr Patch 72hr TD Q3D PEPITO Glycopyrrolate 2 mg 10/31/20 09:30 10/31/20 13:08 Glycopyrrolate 2 Mg Tab PO 2 mg Q6HR PEPITO Administration Heparin Sodium (Porcine) 5,000 unit 10/11/20 22:00 10/31/20 10:22 Heparin 5,000 Unit/1 Ml Vial SUB-Q 5,000 unit Q12HR PEPITO Administration Hydralazine HCl 5 mg 10/15/20 20:25 10/30/20 01:13 Hydralazine 20 Mg/1 Ml Inj IV 5 mg Q6H PRN Administration Hypertension Hydralazine HCl 100 mg 10/24/20 09:30 10/31/20 13:08 Hydralazine 25 Mg Tab PO 100 mg Q8HR PEPITO Administration Hydrophilic Ointment 1 applic 10/10/20 10:34 Lip Therapy Vaseline TP Q2HR PRN Dry Lips Lansoprazole 30 mg 10/24/20 10:00 10/31/20 09:19 Lansoprazole 30 Mg Solutab FEEDTUBE 30 mg BID PEPITO Administration Levetiracetam 500 mg 10/31/20 10:00 10/31/20 09:18 Levetiracetam 500 Mg/5 Ml Oral Liqd PO 500 mg BID PEPITO Administration Metoclopramide HCl 10 mg 10/10/20 21:51 Metoclopramide 10 Mg/2 Ml Inj IV Q6H PRN Nausea And Vomiting Metoprolol Tartrate 100 mg 10/21/20 14:00 10/31/20 13:08 Metoprolol Tartrate 50 Mg Tab PO 100 mg TID PEPITO Administration Multi-Ingred Cream/Lotion/Oil/Oint 1 applic 10/10/20 10:34 Mineral Oil/Petrolatum, White Ophth Oint 3.5 Gm OU Q4HR PRN Dry Eye(s) Ondansetron HCl 4 mg 10/10/20 21:51 Ondansetron 4 Mg/2 Ml Inj IV Q3H PRN Nausea And Vomiting Polyethylene Glycol 17 gm 10/17/20 10:00 10/31/20 09:18 Polyethylene Glycol 3350 17 Gm Powder PO 17 gm QDAY PEPITO Administration Quetiapine Fumarate 100 mg 10/31/20 13:00 10/31/20 13:08 Quetiapine 100 Mg Tab PO 100 mg BID PEPITO Administration Scopolamine 1 each 10/17/20 10:00 10/29/20 10:15 Scopolamine Transdermal Patch 72 Hr TD 1 each Q3D PEPITO Administration Simple Syrup 15 ml 10/10/20 22:18 Simple Syrup 15 Ml FEEDTUBE PRN PRN Hypoglycemia Simple Syrup 30 ml 10/10/20 22:18 Simple Syrup 15 Ml FEEDTUBE PRN PRN Hypoglycemia Sodium Bicarbonate 325 mg 10/10/20 22:18 Sodium Bicarbonate 325 Mg Tab FEEDTUBE PRN PRN For Clogged Feeding Tube Sodium Chloride 10 ml 10/10/20 22:00 10/31/20 14:37 Sodium Chloride 0.9% 10 Ml Flush Syringe IV Not Given BID PEPITO Sodium Chloride 10 ml 10/10/20 21:51 10/21/20 09:56 Sodium Chloride 0.9% 10 Ml Flush Syringe IV 10 ml PRN PRN Administration LINE FLUSH Nutrition/Malnutrition Assess - Dietary Evaluation Nutrition/Malnutrition Findings: Nutrition Notes Start: 10/11/20 08:38 Freq: Status: Active Protocol: Document 10/31/20 11:54 (Rec: 10/31/20 11:57 [id number]) Nutrition Notes Initial or Follow up Reassessment Current Diagnosis Acute Kidney Injury,Sepsis, Hypertension,Heart Failure, Respiratory Failure Other Pertinent Diagnosis GIB, pneu, MRSA AR, pulmonary edema Current Diet Prmote at 80 ml/hr Labs/Tests BUN 32 Pertinent Medications Reviewed Height 6 ft Weight 126.4 kg [place] Body Weight (kg) 80.90 BMI 37.8 Weight Status Morbidly Obese Subjective/Other Information FU for TF tolerance. Observed Promote running at goal rate of 80 ml/hr. Percent of energy/protein needs met: 100%/74% Burn Absent Trauma Absent Difficulty In Swallowing Current % PO Negligible Minimum of two criteria No Fluid Accumulation Mild (non-severe) #1 Nutrition Diagnosis Inadequate oral intake Diagnosis Progress(for reassessment Continues documentation) Is patient on ventilator? Yes Is Patient Ambulatory and/or Out of Bed No REE-([facility]-confined to bed) 2579.976 Kcal/Kg value to use for calculation 15 Approximate Energy Requirements Using 1896 kcal/Kg Calculation Used for Recommendations Kcal/kg Additional Notes protein needs: >162g (>2 kgIBW ) fluid needs: 1 ml/kcal or per MD Nutrition Intervention Change Diet Order: Continue Nutrition Support: Promote at 80 ml/hr with a free water flush of 200 ml q4hr for hypernatremia. Once hypernatremia resolved, resume flush of 50 ml q4h. Kcal 1,920 Protein (gm) 120 Fluid (mL) 1,611 Goal #1 Tolerate TF Goal #2 Meet at least 70% of protein and 100% of kcal needs via TF Follow-Up By: 11/02/20 Additional Comments FU for TF tolerance <DAVID TORRES - Last Filed: 10/31/20 16:19> Assessment and Plan Assessment and plan: I saw and evaluated the patient. I agree with the findings and the plan of care as documented in the Nurse Practitioner's~note. Hospitalist Physical - Constitutional Vitals: Temp Pulse Resp BP Pulse Ox 98.2 F 65 16 127/61 100 10/31/20 12:00 10/31/20 14:00 10/31/20 14:00 10/31/20 14:00 10/31/20 14:00 HEART Score - HEART Score Troponin: Troponin T 0.125 ng/mL (0.00-0.029) H* D 10/12/20 04:00 Results - Labs CBC & Chem 7: 10/29/20 04:23 10/31/20 04:00 Labs: Laboratory Last Values WBC 13.6 K/mm3 (4.5-11.0) H 10/29/20 04:23 RBC 3.47 M/mm3 (3.65-5.03) L 10/29/20 04:23 Hgb 10.5 gm/dl (11.8-15.2) L 10/29/20 04:23 Hct 30.7 % (35.5-45.6) L 10/29/20 04:23 MCV 88 fl (84-94) 10/29/20 04:23 MCH 30 pg (28-32) 10/29/20 04:23 MCHC 34 % (32-34) 10/29/20 04:23 RDW 15.4 % (13.2-15.2) H 10/29/20 04:23 Plt Count 316 K/mm3 (140-440) 10/29/20 04:23 Lymph % (Auto) 4.2 % (13.4-35.0) L 10/19/20 04:55 [place] % (Auto) 11.9 % (0.0-7.3) H 10/19/20 04:55 Eos % (Auto) 1.6 % (0.0-4.3) 10/19/20 04:55 Baso % (Auto) 0.3 % (0.0-1.8) 10/19/20 04:55 Lymph # (Auto) 0.6 K/mm3 (1.2-5.4) L 10/19/20 04:55 [place] # (Auto) 1.8 K/mm3 (0.0-0.8) H 10/19/20 04:55 Eos # (Auto) 0.2 K/mm3 (0.0-0.4) 10/19/20 04:55 Baso # (Auto) 0.1 K/mm3 (0.0-0.1) 10/19/20 04:55 Add Manual Diff Complete 10/10/20 18:18 Total Counted 100 10/10/20 18:18 Seg Neutrophils % 82.0 % (40.0-70.0) H 10/19/20 04:55 Seg Neuts % (Manual) 60.0 % (40.0-70.0) 10/10/20 18:18 Band Neutrophils % 27.0 % 10/10/20 18:18 Lymphocytes % (Manual) 4.0 % (13.4-35.0) L 10/10/20 18:18 Monocytes % (Manual) 9.0 % (0.0-7.3) H 10/10/20 18:18 Eosinophils % (Manual) 4.0 % (0.0-4.3) 10/10/20 10:48 Metamyelocytes % 1.0 % 10/10/20 10:48 Nucleated RBC % Not Reportable 10/10/20 18:18 Seg Neutrophils # 12.4 K/mm3 (1.8-7.7) H 10/19/20 04:55 Seg Neutrophils # Man 13.8 K/mm3 (1.8-7.7) H 10/10/20 18:18 Band Neutrophils # 6.2 K/mm3 10/10/20 18:18 Lymphocytes # (Manual) 0.9 K/mm3 (1.2-5.4) L 10/10/20 18:18 Abs React Lymphs (Man) 0.0 K/mm3 10/10/20 18:18 Monocytes # (Manual) 2.1 K/mm3 (0.0-0.8) H 10/10/20 18:18 Eosinophils # (Manual) 0.0 K/mm3 (0.0-0.4) 10/10/20 18:18 Basophils # (Manual) 0.0 K/mm3 (0.0-0.1) 10/10/20 18:18 Metamyelocytes # 0.0 K/mm3 10/10/20 18:18 Myelocytes # 0.0 K/mm3 10/10/20 18:18 Promyelocytes # 0.0 K/mm3 10/10/20 18:18 Blast Cells # 0.0 K/mm3 10/10/20 18:18 WBC Morphology Not Reportable 10/10/20 18:18 Hypersegmented Neuts Not Reportable 10/10/20 18:18 Hyposegmented Neuts Not Reportable 10/10/20 18:18 Hypogranular Neuts Not Reportable 10/10/20 18:18 Smudge Cells Not Reportable 10/10/20 18:18 Toxic Granulation Not Reportable 10/10/20 18:18 Toxic Vacuolation Not Reportable 10/10/20 18:18 Dohle Bodies Not Reportable 10/10/20 18:18 Pelger-Huet Anomaly Not Reportable 10/10/20 18:18 Dionicio Rods Not Reportable 10/10/20 18:18 Platelet Estimate Consistent w auto 10/10/20 18:18 Clumped Platelets Not Reportable 10/10/20 18:18 Plt Clumps, EDTA Not Reportable 10/10/20 18:18 Large Platelets Rare 10/10/20 18:18 Giant Platelets Rare 10/10/20 18:18 Platelet Satelliting Not Reportable 10/10/20 18:18 Plt Morphology Comment Not Reportable 10/10/20 18:18 RBC Morphology Not Reportable 10/10/20 18:18 Dimorphic RBCs Not Reportable 10/10/20 18:18 Polychromasia Not Reportable 10/10/20 18:18 Hypochromasia Not Reportable 10/10/20 18:18 Poikilocytosis Not Reportable 10/10/20 18:18 Anisocytosis Not Reportable 10/10/20 18:18 Microcytosis Not Reportable 10/10/20 18:18 Macrocytosis Not Reportable 10/10/20 18:18 Spherocytes Not Reportable 10/10/20 18:18 Pappenheimer Bodies Not Reportable 10/10/20 18:18 Sickle Cells Not Reportable 10/10/20 18:18 Target Cells Not Reportable 10/10/20 18:18 Tear Drop Cells Not Reportable 10/10/20 18:18 Ovalocytes Not Reportable 10/10/20 18:18 Helmet Cells Not Reportable 10/10/20 18:18 [place] Bodies Not Reportable 10/10/20 18:18 Hanna Rings Not Reportable 10/10/20 18:18 Eleanor Cells Not Reportable 10/10/20 18:18 Bite Cells Not Reportable 10/10/20 18:18 Crenated Cell Not Reportable 10/10/20 18:18 Elliptocytes Not Reportable 10/10/20 18:18 Acanthocytes (Spur) Not Reportable 10/10/20 18:18 Rouleaux Not Reportable 10/10/20 18:18 Hemoglobin C Crystals Not Reportable 10/10/20 18:18 Schistocytes Not Reportable 10/10/20 18:18 Malaria parasites Not Reportable 10/10/20 18:18 Mauricio Bodies Not Reportable 10/10/20 18:18 Hem Pathologist Commnt No 10/10/20 18:18 PT 13.5 Sec. (12.2-14.9) 10/28/20 07:00 INR 1.05 (0.87-1.13) 10/28/20 07:00 APTT 26.9 Sec. (24.2-36.6) 10/10/20 18:18 D-Dimer 679.5 ng/mlDDU (0-234) H 10/10/20 10:48 Heparin Anti-Xa Level 0.22 U.I./ml (0.3-0.7) L 10/11/20 08:35 ABG pH 7.424 (7.320-7.450) 10/25/20 18:10 POC ABG pCO2 52.3 mmHg (32.0-48.0) H 10/25/20 18:10 ABG pCO2 55.5 mm Hg 10/16/20 05:10 POC ABG pO2 97.1 mmHg (83-108) 10/25/20 18:10 ABG pO2 104.5 mm Hg (80.0-90.0) H 10/16/20 05:10 POC ABG HCO3 33.5 10/25/20 18:10 ABG HCO3 35.1 mmol/L (20.0-26.0) H 10/16/20 05:10 ABG O2 Saturation 97.4 (0-100) 10/25/20 18:10 ABG O2 Content 10.8 (0.0-44) 10/16/20 05:10 POC ABG Base Excess 7.8 10/25/20 18:10 ABG Base Excess 9.5 mmol/L (-2.0-3.0) H 10/16/20 05:10 ABG Hemoglobin 11.2 (12.0-17.5) L 10/25/20 18:10 ABG Oxyhemoglobin 96.2 (94-98) 10/25/20 18:10 ABG Carboxyhemoglobin 1.9 % (0.0-5.0) 10/16/20 05:10 ABG Methemoglobin 0.3 (0.0-1.5) 10/25/20 18:10 ABG Sodium 144.9 mmol/L (136.0-145.0) 10/25/20 18:10 ABG Potassium 3.8 mmol/L (3.40-4.50) 10/25/20 18:10 ABG Chloride 108.0 mmol/L (98-107) H 10/25/20 18:10 ABG Glucose 167 mg/dL (65-95) H 10/25/20 18:10 VBG pH 6.870 (7.320-7.420) L* 10/10/20 10:48 Oxyhemoglobin 95.3 % (95.0-99.0) 10/16/20 05:10 Carboxyhemoglobin 0.9 (0.5-1.5) 10/25/20 18:10 FiO2 35 % 10/16/20 05:10 FiO2 % 30 10/25/20 18:10 Sodium 144 mmol/L (137-145) 10/31/20 04:00 Potassium 4.0 mmol/L (3.6-5.0) 10/31/20 04:00 Chloride 102.9 mmol/L (98-107) 10/31/20 04:00 Carbon Dioxide 38 mmol/L (22-30) H 10/31/20 04:00 Anion Gap 7 mmol/L 10/31/20 04:00 BUN 32 mg/dL (9-20) H 10/31/20 04:00 Creatinine 1.2 mg/dL (0.8-1.3) 10/31/20 04:00 Estimated GFR > 60 ml/min 10/31/20 04:00 BUN/Creatinine Ratio 27 % 10/31/20 04:00 Glucose 121 mg/dL (75-100) H 10/31/20 04:00 POC Glucose 110 mg/dL (70-105) H 10/31/20 05:13 Hemoglobin A1c 6.0 % (4-6) 10/11/20 02:00 Lactic Acid 1.10 mmol/L (0.7-2.0) 10/13/20 04:52 Calcium 8.6 mg/dL (8.4-10.2) 10/31/20 04:00 Phosphorus 5.20 mg/dL (2.5-4.5) H D 10/17/20 03:32 Magnesium 2.30 mg/dL (1.7-2.3) 10/17/20 03:32 Ferritin 81.4 ng/mL (30.0-300.0) 10/10/20 10:48 Total Bilirubin 1.70 mg/dL (0.1-1.2) H 10/18/20 03:27 AST 37 units/L (5-40) 10/18/20 03:27 ALT 32 units/L (7-56) 10/18/20 03:27 Alkaline Phosphatase 97 units/L (35-129) 10/18/20 03:27 Ammonia 214.0 umol/L (25-60) H 10/10/20 10:46 Lactate Dehydrogenase 386 units/L (91-180) H 10/10/20 10:48 Total Creatine Kinase 1192 units/L (55-170) H 10/10/20 18:18 CK-MB (CK-2) 21.7 ng/mL (0.0-4.0) H 10/10/20 18:18 CK-MB (CK-2) Rel Index 1.8 (0-4) 10/10/20 18:18 Troponin T 0.125 ng/mL (0.00-0.029) H* D 10/12/20 04:00 C-Reactive Protein 0.90 mg/dL (0.00-1.30) 10/10/20 10:48 NT-Pro-B Natriuret Pep 1187 pg/mL (0-900) H 10/10/20 10:46 Total Protein 6.3 g/dL (6.3-8.2) 10/18/20 03:27 Albumin 3.1 g/dL (3.9-5) L 10/18/20 03:27 Albumin/Globulin Ratio 1.0 % 10/18/20 03:27 Triglycerides 278 mg/dL (2-149) H 10/13/20 04:52 Cholesterol 138 mg/dL (50-199) 10/10/20 18:18 LDL Cholesterol Direct 76 mg/dL (50-130) 10/10/20 18:18 HDL Cholesterol 49 mg/dL (40-59) 10/10/20 18:18 Cholesterol/HDL Ratio 2.81 % 10/10/20 18:18 Procalcitonin 4.98 ng/mL (<0.15) 10/15/20 04:12 TSH 6.260 mlU/mL (0.270-4.200) H 10/10/20 10:46 Arterial Blood Glucose 167 mg/dL (65-95) H 10/25/20 18:10 Arterial Blood Ionized Calcium 5.1 mg/dL (4.6-5.3) 10/25/20 18:10 Urine Color Angelica (Yellow) 10/18/20 Unknown Urine Turbidity Cloudy (Clear) 10/18/20 Unknown Urine pH 5.0 (5.0-7.0) 10/18/20 Unknown Ur Specific [place] 1.017 (1.003-1.030) 10/18/20 Unknown Urine Protein 100 mg/dl mg/dL (Negative) 10/18/20 Unknown Urine Glucose (UA) Neg mg/dL (Negative) 10/18/20 Unknown Urine Ketones Neg mg/dL (Negative) 10/18/20 Unknown Urine Blood Lg (Negative) 10/18/20 Unknown Urine Nitrite Neg (Negative) 10/18/20 Unknown Urine Bilirubin Neg (Negative) 10/18/20 Unknown Urine Urobilinogen 4.0 mg/dL (<2.0) 10/18/20 Unknown Ur Leukocyte Esterase Neg (Negative) 10/18/20 Unknown Urine WBC (Auto) 115.0 /HPF (0.0-6.0) H 10/18/20 Unknown Urine RBC (Auto) 98.0 /HPF (0.0-6.0) 10/18/20 Unknown U Epithel Cells (Auto) 2.0 /HPF (0-13.0) 10/18/20 Unknown Urine WBC Clumps 3+ /HPF 10/18/20 Unknown Urine Mucus Few /HPF 10/11/20 13:30 Urine Eosinophils None seen (None Seen) 10/11/20 13:30 Urine Creatinine 93.7 mg/dL (0.1-20.0) H 10/19/20 13:14 Urine Sodium 25 mmol/L 10/19/20 13:14 Urine Urea Nitrogen 845 10/19/20 13:14 Nasal Screen MRSA (PCR) Positive (Negative) 10/20/20 13:30 Random Vancomycin 5.8 ug/mL (0-40.0) 10/21/20 06:30 Urine Opiates Screen Negative 10/10/20 10:50 Urine Methadone Screen Negative 10/10/20 10:50 Ur Barbiturates Screen Negative 10/10/20 10:50 Ur Phencyclidine Scrn Negative 10/10/20 10:50 Ur Amphetamines Screen Negative 10/10/20 10:50 U Benzodiazepines Scrn Negative 10/10/20 10:50 Urine Cocaine Screen Negative 10/10/20 10:50 U Marijuana (THC) Screen Positive 10/10/20 10:50 Drugs of Abuse Note Disclamer 10/10/20 10:50 Plasma/Serum Alcohol < 0.01 % (0-0.07) 10/10/20 10:48 Coronavirus (PCR) Negative (Negative) 10/11/20 Unknown Blood Type AB POSITIVE 10/10/20 10:48 Antibody Screen Negative 10/10/20 10:48 Microbiology: Microbiology 10/20/20 12:35 Nose - Right Eye/Ear/Nose/Throat Culture - Final Methicillin Resist S. Aureus [place]/IV: Voiding Method Incontinent Active Medications - Current Medications Current Medications: Generic Name Dose Route Start Last Admin Trade Name Freq PRN Reason Stop Dose Admin Acetaminophen 650 mg 10/10/20 21:51 10/20/20 09:11 Acetaminophen 325 Mg Tab PO 650 mg Q4H PRN Administration Pain MILD(1-3)/Fever >100.5/SALVADOR Acetaminophen 650 mg 10/11/20 11:24 10/17/20 17:16 Acetaminophen 650 Mg Rect Supp NV 650 mg Q6H PRN Administration Fever >101 Albuterol 2.5 mg 10/11/20 13:12 Albuterol 2.5 Mg/3 Ml Nebu IH Q6HRT PRN Shortness Of Breath Amlodipine Besylate 10 mg 04/13/21 13:00 10/31/20 09:18 Amlodipine 10 Mg Tab PO 10 mg QDAY PEPITO Administration Lipase/Protease/Amylase 1 each 10/10/20 22:18 Lipase 10,500/Protease 25,000/Amylase 43,750 (Units) Dr Santana FEEDTUBE PRN PRN For Clogged Feeding Tube Clonidine HCl 0.3 mg 10/14/20 15:00 10/28/20 14:58 Clonidine Tts 0.3 Mg/24 Hr Patch TD 0.3 mg Fr PEPITO Administration Docusate Sodium 100 mg 10/16/20 22:00 10/31/20 09:18 Docusate Sodium 100 Mg/10 Ml Oral Liqd PO 100 mg BID PEPITO Administration Fentanyl 25 mcg 10/31/20 13:00 Fentanyl 100 Mcg/2 Ml Inj IV Q2H PRN ANALGESIA Fentanyl 25 mcg 10/31/20 14:00 Fentanyl 25 Mcg/Hr Patch 72hr TD Q3D PEPITO Glycopyrrolate 2 mg 10/31/20 09:30 10/31/20 13:08 Glycopyrrolate 2 Mg Tab PO 2 mg Q6HR PEPITO Administration Heparin Sodium (Porcine) 5,000 unit 10/11/20 22:00 10/31/20 10:22 Heparin 5,000 Unit/1 Ml Vial SUB-Q 5,000 unit Q12HR PEPITO Administration Hydralazine HCl 5 mg 10/15/20 20:25 10/30/20 01:13 Hydralazine 20 Mg/1 Ml Inj IV 5 mg Q6H PRN Administration Hypertension Hydralazine HCl 100 mg 10/24/20 09:30 10/31/20 13:08 Hydralazine 25 Mg Tab PO 100 mg Q8HR PEPITO Administration Hydrophilic Ointment 1 applic 10/10/20 10:34 Lip Therapy Vaseline TP Q2HR PRN Dry Lips Lansoprazole 30 mg 10/24/20 10:00 10/31/20 09:19 Lansoprazole 30 Mg Solutab FEEDTUBE 30 mg BID PEPITO Administration Levetiracetam 500 mg 10/31/20 10:00 10/31/20 09:18 Levetiracetam 500 Mg/5 Ml Oral Liqd PO 500 mg BID PEPITO Administration Metoclopramide HCl 10 mg 10/10/20 21:51 Metoclopramide 10 Mg/2 Ml Inj IV Q6H PRN Nausea And Vomiting Metoprolol Tartrate 100 mg 10/21/20 14:00 10/31/20 13:08 Metoprolol Tartrate 50 Mg Tab PO 100 mg TID PEPITO Administration Multi-Ingred Cream/Lotion/Oil/Oint 1 applic 10/10/20 10:34 Mineral Oil/Petrolatum, White Ophth Oint 3.5 Gm OU Q4HR PRN Dry Eye(s) Ondansetron HCl 4 mg 10/10/20 21:51 Ondansetron 4 Mg/2 Ml Inj IV Q3H PRN Nausea And Vomiting Polyethylene Glycol 17 gm 10/17/20 10:00 10/31/20 09:18 Polyethylene Glycol 3350 17 Gm Powder PO 17 gm QDAY PEPITO Administration Quetiapine Fumarate 100 mg 10/31/20 13:00 10/31/20 13:08 Quetiapine 100 Mg Tab PO 100 mg BID PEPITO Administration Scopolamine 1 each 10/17/20 10:00 10/29/20 10:15 Scopolamine Transdermal Patch 72 Hr TD 1 each Q3D PEPITO Administration Simple Syrup 15 ml 10/10/20 22:18 Simple Syrup 15 Ml FEEDTUBE PRN PRN Hypoglycemia Simple Syrup 30 ml 10/10/20 22:18 Simple Syrup 15 Ml FEEDTUBE PRN PRN Hypoglycemia Sodium Bicarbonate 325 mg 10/10/20 22:18 Sodium Bicarbonate 325 Mg Tab FEEDTUBE PRN PRN For Clogged Feeding Tube Sodium Chloride 10 ml 10/10/20 22:00 10/31/20 14:37 Sodium Chloride 0.9% 10 Ml Flush Syringe IV Not Given BID PEPITO Sodium Chloride 10 ml 10/10/20 21:51 10/21/20 09:56 Sodium Chloride 0.9% 10 Ml Flush Syringe IV 10 ml PRN PRN Administration LINE FLUSH Nutrition/Malnutrition Assess - Dietary Evaluation Nutrition/Malnutrition Findings: Nutrition Notes Start: 10/11/20 08:38 Freq: Status: Active Protocol: Document 10/31/20 11:54 MK (Rec: 10/31/20 11:57 [id number]) Nutrition Notes Initial or Follow up Reassessment Current Diagnosis Acute Kidney Injury,Sepsis, Hypertension,Heart Failure, Respiratory Failure Other Pertinent Diagnosis GIB, pneu, MRSA AR, pulmonary edema Current Diet Prmote at 80 ml/hr Labs/Tests BUN 32 Pertinent Medications Reviewed Height 6 ft Weight 126.4 kg [place] Body Weight (kg) 80.90 BMI 37.8 Weight Status Morbidly Obese Subjective/Other Information FU for TF tolerance. Observed Promote running at goal rate of 80 ml/hr. Percent of energy/protein needs met: 100%/74% Burn Absent Trauma Absent Difficulty In Swallowing Current % PO Negligible Minimum of two criteria No Fluid Accumulation Mild (non-severe) #1 Nutrition Diagnosis Inadequate oral intake Diagnosis Progress(for reassessment Continues documentation) Is patient on ventilator? Yes Is Patient Ambulatory and/or Out of Bed No REE-([place]-confined to bed) 2579.976 Kcal/Kg value to use for calculation 15 Approximate Energy Requirements Using 1896 kcal/Kg Calculation Used for Recommendations Kcal/kg Additional Notes protein needs: >162g (>2 kgIBW ) fluid needs: 1 ml/kcal or per MD Nutrition Intervention Change Diet Order: Continue Nutrition Support: Promote at 80 ml/hr with a free water flush of 200 ml q4hr for hypernatremia. Once hypernatremia resolved, resume flush of 50 ml q4h. Kcal 1,920 Protein (gm) 120 Fluid (mL) 1,611 Goal #1 Tolerate TF Goal #2 Meet at least 70% of protein and 100% of kcal needs via TF Follow-Up By: 11/02/20 Additional Comments FU for TF tolerance
[2020-10-31] MEDS: ONDANSETRON 4 MG/2 ML INJ IV PRN (21:13)
[2020-10-31] MEDS: fentaNYL 100 MCG/2 ML INJ IV PRN (21:32)
[2020-11-01] MEDS: fentaNYL 100 MCG/2 ML INJ IV PRN ×4 (03:09→20:28)
[2020-11-01 04:54] LABS: Hematocrit 27.3 % (35.5-45.6); Mean Corpuscular HGB Conc 33 % (32-34); Mean Corpuscular Volume 90 fl (84-94); Platelet Count 217 K/mm3 (140-440); Red Blood Count 3.05 M/mm3 (3.65-5.03); Red Cell Distribution Width 14.7 % (13.2-15.2)
[2020-11-01] MEDS: GLYCOPYRROLATE 2 MG TAB PO SCH ×3 (05:09→18:09)
[2020-11-01] MEDS: hydrALAZINE 25 MG TAB PO SCH ×3 (05:09→23:19)
[2020-11-01] MEDS ORDERED: LORazepam 2 MG/ML VIAL IV ONE (06:02)
[2020-11-01] MEDS: DOCUSATE SODIUM 100 MG/10 ML ORAL LIQD PO SCH ×2 (09:40→23:19)
[2020-11-01] MEDS: LANSOPRAZOLE 30 MG SOLUTAB FEEDTUBE SCH ×2 (09:40→23:19)
[2020-11-01] MEDS: amLODIPine 10 MG TAB PO SCH (09:40)
[2020-11-01] MEDS: levETIRAcetam 500 MG/5 ML ORAL LIQD PO SCH ×2 (09:41→23:19)
[2020-11-01] MEDS: METOPROLOL TARTRATE 50 MG TAB PO SCH ×3 (09:41→19:10)
[2020-11-01] MEDS: QUEtiapine 100 MG TAB PO SCH ×2 (09:41→23:19)
[2020-11-01] MEDS: POLYETHYLENE GLYCOL 3350 17 GM POWDER PO SCH (09:41)
[2020-11-01] MEDS: HEPARIN 5,000 UNIT/1 ML VIAL SUB-Q SCH ×2 (09:42→21:06)
[2020-11-01] MEDS: SCOPOLAMINE TRANSDERMAL PATCH 72 HR TD SCH (09:42)
--- NOTE | 2020-11-01 09:57 | Progress Note ---
Assessment and Plan he pt is a 55-year-old -Citizen Of The [place] male with a past medical history of hypertension, asthma, obesity. He is intubated and sedated on evaluation and thus HPI is obtained per the chart. Pt presented to ED after Covid vaccine and passed out with seizure like activity in the car at the emergency room bay. Patient was found to be unresponsive and with no pulse. ACLS protocol was initiated from the car to the emergency room with continued ACLS protocol. Patient was intubated and after couple of epi ROSC obtained. Central line was p laced and patient was also started on pressors. Patient did not have any fever shortness of breath or cough or any symptoms prior to the COVID-19 vaccination. Patient coded twice in the emergency room. One before the imaging studies and once after the imaging studies. Pt remains intubated, intermittently sedated, intermittent blinking of eyes to painful stimulus (sternal rub) noted. Neurology f/u noted - pt with suspected anoxic brain injury. Brain MRI shows diffuse restricted diffusion and increased T2 signal in the cerebral cortex, findings can be seen in setting of anoxic brain injury and/or status epilepticus. Per primary team, pt is not tolerating weaning from ventilator. Pt is being considered for Trach & Peg. Pt is moderate cardiovascular risk patient going for moderate risk procedure. no cardiac contraindications for trach and peg. tte reviewed - EF 55-60%, mod LVH, mild diastolic dysfunction. (11/01/20) Pt is s/p Trach and PEG placement. Unresponsive. Tele reviewed: SR 77. One episode of 3 beat VT overnight. Paroxismal Afib RVR Currently in sinus rhythm. No systemic AC at this time in regards to paroxysmal AFib/AFlutter given h/o GI bleeding while on heparin gtt. s/p Cardiac Arrest Pt was admitted as a witnessed arrest per HPI. Acute Respiratory Failure s/p Trach & PEG. Pt is on ventilator mgmt per supervisor coffee. Seizure Currently on Keppra gtt. HTN Continue current antihypertensive regimen: Amlodipine 10mg, Clonidine patch, Hydralazine 100mg TID, Metoprolol 100mg TID. repeat BMP in am. DVT prophylaxis Cont Heparin SQ prophylaxis. Continue SCD therapy. Pt is in stable cardiac status. Nothing further to add from cardiology standpoint. Will follow. The patient has been seen in conjunction with Dr. Bill Steen who agrees with the assessment and plan of care. - Patient Problems (1) AMS (altered mental status) Current Visit: Yes Status: Acute (2) Cardiopulmonary arrest with successful resuscitation Current Visit: Yes Status: Acute (3) Acute respiratory failure Current Visit: Yes Status: Acute Qualifiers: Respiratory failure complication: hypoxia and hypercapnia Qualified Code(s): J96.01 - Acute respiratory failure with hypoxia; J96.02 - Acute respiratory failure with hypercapnia (4) Bilateral pneumonia Current Visit: Yes Status: Acute (5) Sepsis with hypotension Current Visit: Yes Status: Acute (6) Person under investigation for COVID-19 Current Visit: Yes Status: Ruled-out (7) Seizure Current Visit: Yes Status: Suspected (8) NSTEMI (non-ST elevated myocardial infarction) Current Visit: Yes Status: Acute (9) MOE (acute kidney injury) Current Visit: Yes Status: Acute (10) GI bleed Current Visit: Yes Status: Acute (11) Acute heart failure with preserved ejection fraction (HFpEF) Current Visit: Yes Status: Acute (12) Hypernatremia Current Visit: Yes Status: Acute (13) Atrial fibrillation and flutter Current Visit: Yes Status: Acute (14) Anemia Current Visit: Yes Status: Acute Subjective Date of service: 11/01/20 Principal diagnosis: Cardiac arrest; Septic Shock; Ac. hypoxemic & hypercapnic resp failure; MOE Interval history: Pt is s/p Trach and PEG placement. Unresponsive. Tele reviewed: SR 77. One episode of 3 beat VT overnight. Objective Last Vital Signs Temp 99.7 F H 11/01/20 08:00 Pulse 73 11/01/20 09:40 Resp 29 H 11/01/20 06:18 BP 148/78 11/01/20 09:40 Pulse Ox 100 11/01/20 07:34 - Physical Examination General: Other (intubated) HEENT: Positive: Normocephaly Neck: Positive: neck supple, trachea midline, Other (Tracheostomy in place.) Cardiac: Positive: Reg Rate and Rhythm, S1/S2 Lungs: Positive: Ventilated Respirations Neuro: Positive: Other (intubated) Abdomen: Positive: Soft, Active Bowel Sounds Skin: Negative: Rash Extremities: Present: upper extr. pulses, lower extr. pulses. Absent: edema - Labs and Meds CBC 11/01/20 Range/Units 04:09 WBC 11.3 H (4.5-11.0) K/mm3 RBC 3.05 L (3.65-5.03) M/mm3 Hgb 9.0 L (11.8-15.2) gm/dl Hct 27.3 L (35.5-45.6) % Plt Count 217 (140-440) K/mm3 - Imaging and Cardiology EKG: report reviewed, image reviewed Echo: report reviewed (10/10/2020 - mod LVH, EF 55-60%, mild diastolic dysfunction) - Telemetry EKG Rhythm: Sinus Rhythm - EKG Sinus rhythms and dysrhythmias: sinus rhythm Repolarization changes or abnormalities: ST suggestive of injury, Q-T interval prolongation - Allied health notes Allied health notes reviewed: nursing
--- NOTE | 2020-11-01 13:27 | Progress Note ---
Assessment and Plan Cardiac arrest x3 with ROSC Severe septic and cardiogenic shock Acute respiratory failure with hypoxemia and hypercarbia Acute pulmonary edema MOE (acute kidney injury) Lactic acidosis, severe metabolic acidosis Bilateral pneumonia, aspiration pneumonia Elevated troponins - increase pm Seroquel dose re: nocturnal agitation - continue Robinul & scopolamine for secretion control - lasix 20 mg IV X 1 re: pulmonary edema - RTC t-piece trials as tolerated at this point - ABG at 9 pm tonight to assess ventilation - continue contact precautions re: MRSA - continue care as below otherwise; - continue daily SAT's and SBT assessment as tolerated - complete anti-infective's per ID rec's - follow clinically re: fevers / WBC - Monitor hemodynamics closely - wean supplemental oxygen for target O2 sat's > 92% acutely - VAP bundle addressed - continue lung protective strategies - bronchodilators with pulmonary hygiene per RT - wean per pulmonary driven protocols otherwise - Monitor urine output closely - bicarbonate infusion - avoid nephrotoxins, renally dose all medications - continue to avoid benzodiazepine's, reduce the possibility of delirium - continue Scopolamine for secretion control - continue wound care per RN/WCN - prn analgesia per CPOT score - Maintenance of sleep-wake cycle, avoid delirium - continue enteral nutritional support at goal rate as tolerated - G.I. & VTE prophylaxis - PT/OT/ROM exercises - continue mobility protocols for pressure ulcer prophylaxis - Monitor hemodynamics closely - continue other care per attending / other consultants - discharge planning ongoing concurrently .... Re-evaluate in am & prn CONDITION: CRITICAL PROGNOSIS: GUARDED CODE STATUS: FULL CODE The high probability of a clinically significant, sudden or life-threatening deterioration of the [respiratory, cardiovascular & neurologic] system(s) required my full and direct attention, intervention and personal management. The aggregate critical care time was [32] minutes without overlap. Time includes spent on; [x] Data Review and interpretation [x] Patient assessment and monitoring of vital signs [x] Documentation [x] Medication orders and management Subjective Date of service: 11/01/20 Principal diagnosis: Cardiac arrest; Septic Shock; Ac. hypoxemic & hypercapnic r yanci failure; MOE Interval history: Patient is seen today for: Cardiac arrest with ROSC; Severe septic and cardiogenic shock; Acute respiratory failure with hypoxemia and hypercarbia; Acute pulmonary edema; MOE; Lactic acidosis; severe metabolic acidosis; Bila teral pneumonia; aspiration pneumonia; Elevated troponins Seen and examined at bedside; 24hour events reviewed; nursing and respiratory care staff consulted; no adverse overnight events reported to me; resting peacefully in bed; tolerated t-piece well yesterda; rested on AC overnight but back o0n SBT; AMS is persistent; secretions better today; agitated overnight per RN Objective Vital Signs - 12hr 11/01/20 11/01/20 11/01/20 01:30 02:00 02:30 Temperature Pulse Rate 77 74 81 Pulse Rate [ From Monitor] Respiratory 14 20 14 Rate Blood Pressure 142/78 134/76 134/76 O2 Sat by Pulse 99 99 100 Oximetry O2 Sat by Pulse Oximetry [ Assessment] 11/01/20 11/01/20 11/01/20 03:00 03:31 03:36 Temperature 98.9 F Pulse Rate 88 75 Pulse Rate [ From Monitor] Respiratory 18 22 Rate Blood Pressure 151/87 147/81 O2 Sat by Pulse 100 100 Oximetry O2 Sat by Pulse Oximetry [ Assessment] 11/01/20 11/01/20 11/01/20 04:00 04:31 04:48 Temperature Pulse Rate 74 78 77 Pulse Rate [ 73 From Monitor] Respiratory 22 20 Rate Blood Pressure 139/69 154/82 154/82 O2 Sat by Pulse 99 100 100 Oximetry O2 Sat by Pulse Oximetry [ Assessment] 11/01/20 11/01/20 11/01/20 05:00 05:09 05:31 Temperature Pulse Rate 78 80 106 H Pulse Rate [ From Monitor] Respiratory 36 H 32 H Rate Blood Pressure 163/91 163/91 218/125 O2 Sat by Pulse 100 100 Oximetry O2 Sat by Pulse Oximetry [ Assessment] 11/01/20 11/01/20 11/01/20 06:01 06:18 06:31 Temperature Pulse Rate 117 H 104 H Pulse Rate [ From Monitor] Respiratory 20 29 H 25 H Rate Blood Pressure 191/99 158/96 151/82 O2 Sat by Pulse 100 99 Oximetry O2 Sat by Pulse Oximetry [ Assessment] 11/01/20 11/01/20 11/01/20 07:00 07:31 07:34 Temperature Pulse Rate 97 H 100 H 89 Pulse Rate [ From Monitor] Respiratory 15 22 Rate Blood Pressure 132/82 141/81 141/81 O2 Sat by Pulse 100 100 100 Oximetry O2 Sat by Pulse 100 Oximetry [ Assessment] 11/01/20 11/01/20 11/01/20 08:00 08:30 09:01 Temperature 99.7 F H Pulse Rate 84 86 86 Pulse Rate [ From Monitor] Respiratory 21 22 21 Rate Blood Pressure 144/78 137/82 149/81 O2 Sat by Pulse 100 100 100 Oximetry O2 Sat by Pulse Oximetry [ Assessment] 11/01/20 11/01/20 11/01/20 09:31 09:40 10:00 Temperature Pulse Rate 75 73 73 Pulse Rate [ From Monitor] Respiratory 20 16 Rate Blood Pressure 148/78 148/78 149/75 O2 Sat by Pulse 100 100 Oximetry O2 Sat by Pulse Oximetry [ Assessment] 11/01/20 11/01/20 10:52 12:00 Temperature 99.2 F Pulse Rate Pulse Rate [ From Monitor] Respiratory Rate Blood Pressure O2 Sat by Pulse 100 Oximetry O2 Sat by Pulse 100 Oximetry [ Assessment] Constitutional: appears uncomfortable, other (middle aged obese male with mildly increased respiratory efort at rest) Eyes: non-icteric ENT: oropharynx moist, other (midline tracheostomy) Neck: supple, no lymphadenopathy, no JVD Effort: mildly labored Ascultation: Bilateral: diminished breath sounds, rhonchi (scant) Percussion: Bilateral: not dull Cardiovascular: regular rate and rhythm, other (S1,S2) Gastrointestinal: normoactive bowel sounds, soft, non-tender, non-distended (protuberant) Integumentary: normal Extremities: no cyanosis, no edema, pulses normal, no ischemia or petechiae Neurologic: pupils equal and round, unable to assess Psychiatric: other (unable to assess re: AMS) CBC and BMP: 11/01/20 04:09 10/31/20 04:00 ABG, PT/INR, D-dimer: ABG ABG pH 7.329 (7.320-7.450) 10/31/20 16:17 POC ABG pCO2 71.1 mmHg (32.0-48.0) H 10/31/20 16:17 ABG pCO2 55.5 mm Hg 10/16/20 05:10 POC ABG pO2 67.4 mmHg (83-108) L 10/31/20 16:17 ABG pO2 104.5 mm Hg (80.0-90.0) H 10/16/20 05:10 POC ABG HCO3 36.6 10/31/20 16:17 ABG O2 Saturation 91.9 (0-100) 10/31/20 16:17 PT/INR, D-dimer PT 13.5 Sec. (12.2-14.9) 10/28/20 07:00 INR 1.05 (0.87-1.13) 10/28/20 07:00 D-Dimer 679.5 ng/mlDDU (0-234) H 10/10/20 10:48 Abnormal lab findings: Abnormal Labs 10/10/20 10/10/20 10/10/20 10:46 10:46 10:46 WBC RBC Hgb Hct RDW Lymph % (Auto) Smyth % (Auto) Lymph # (Auto) Smyth # (Auto) Seg Neutrophils % Lymphocytes % (Manual) Monocytes % (Manual) Seg Neutrophils # Seg Neutrophils # Man Lymphocytes # (Manual) Monocytes # (Manual) D-Dimer Heparin Anti-Xa Level ABG pH POC ABG pCO2 POC ABG pO2 ABG pO2 ABG HCO3 ABG O2 Saturation ABG Base Excess ABG Hemoglobin ABG Oxyhemoglobin ABG Sodium ABG Potassium ABG Chloride ABG Glucose VBG pH Oxyhemoglobin Carboxyhemoglobin Sodium Potassium Chloride Carbon Dioxide BUN Creatinine Glucose POC Glucose Lactic Acid 13.60 H* Calcium Phosphorus Magnesium Total Bilirubin AST ALT Ammonia 214.0 H Lactate Dehydrogenase Total Creatine Kinase CK-MB (CK-2) Troponin T NT-Pro-B Natriuret Pep Total Protein Albumin Triglycerides TSH 6.260 H Arterial Blood Glucose Arterial Blood Ionized Calcium Urine pH Urine WBC (Auto) Urine Creatinine 10/10/20 10/10/20 10/10/20 10:46 10:48 10:48 WBC RBC 5.28 H Hgb 15.5 H Hct 48.8 H RDW Lymph % (Auto) S[place]th % (Auto) Lymph # (Auto) S[place]th # (Auto) Seg Neutrophils % Lymphocytes % (Manual) 42.0 H Monocytes % (Manual) Seg Neutrophils # Seg Neutrophils # Man Lymphocytes # (Manual) Monocytes # (Manual) D-Dimer Heparin Anti-Xa Level ABG pH POC ABG pCO2 POC ABG pO2 ABG pO2 ABG HCO3 ABG O2 Saturation ABG Base Excess ABG Hemoglobin ABG Oxyhemoglobin ABG Sodium ABG Potassium ABG Chloride ABG Glucose VBG pH Oxyhemoglobin Carboxyhemoglobin Sodium Potassium 3.3 L Chloride 91.2 L Carbon Dioxide BUN Creatinine 1.8 H Glucose 231 H POC Glucose Lactic Acid Calcium Phosphorus Magnesium Total Bilirubin AST 60 H ALT 57 H Ammonia Lactate Dehydrogenase Total Creatine Kinase CK-MB (CK-2) Troponin T NT-Pro-B Natriuret Pep 1187 H Total Protein 9.0 H Albumin Triglycerides TSH Arterial Blood Glucose Arterial Blood Ionized Calcium Urine pH Urine WBC (Auto) Urine Creatinine 10/10/20 10/10/20 10/10/20 10:48 10:48 10:48 WBC RBC Hgb Hct RDW Lymph % (Auto) S[place]th % (Auto) Lymph # (Auto) S[place]th # (Auto) Seg Neutrophils % Lymphocytes % (Manual) Monocytes % (Manual) Seg Neutrophils # Seg Neutrophils # Man Lymphocytes # (Manual) Monocytes # (Manual) D-Dimer 679.5 H Heparin Anti-Xa Level ABG pH POC ABG pCO2 POC ABG pO2 ABG pO2 ABG HCO3 ABG O2 Saturation ABG Base Excess ABG Hemoglobin ABG Oxyhemoglobin ABG Sodium ABG Potassium ABG Chloride ABG Glucose VBG pH 6.870 L* Oxyhemoglobin Carboxyhemoglobin Sodium Potassium Chloride Carbon Dioxide BUN Creatinine Glucose POC Glucose Lactic Acid Calcium Phosphorus Magnesium Total Bilirubin AST ALT Ammonia Lactate Dehydrogenase 386 H Total Creatine Kinase CK-MB (CK-2) Troponin T NT-Pro-B Natriuret Pep Total Protein Albumin Triglycerides TSH Arterial Blood Glucose Arterial Blood Ionized Calcium Urine pH Urine WBC (Auto) Urine Creatinine 10/10/20 10/10/20 10/10/20 14:10 14:20 15:50 WBC RBC Hgb Hct RDW Lymph % (Auto) S[place]th % (Auto) Lymph # (Auto) S[place]th # (Auto) Seg Neutrophils % Lymphocytes % (Manual) Monocytes % (Manual) Seg Neutrophils # Seg Neutrophils # Man Lymphocytes # (Manual) Monocytes # (Manual) D-Dimer Heparin Anti-Xa Level ABG pH 7.175 L 7.247 L POC ABG pCO2 85.0 H POC ABG pO2 43.7 L ABG pO2 60.3 L ABG HCO3 32.0 H ABG O2 Saturation 86.1 L ABG Base Excess ABG Hemoglobin ABG Oxyhemoglobin 67.7 L ABG Sodium ABG Potassium ABG Chloride ABG Glucose 247 H VBG pH Oxyhemoglobin 84.4 L Carboxyhemoglobin Sodium Potassium Chloride Carbon Dioxide BUN Creatinine Glucose POC Glucose Lactic Acid 4.00 H* Calcium Phosphorus Magnesium Total Bilirubin AST ALT Ammonia Lactate Dehydrogenase Total Creatine Kinase CK-MB (CK-2) Troponin T NT-Pro-B Natriuret Pep Total Protein Albumin Triglycerides TSH Arterial Blood Glucose 247 H Arterial Blood Ionized Calcium 4.4 L Urine pH Urine WBC (Auto) Urine Creatinine 10/10/20 10/10/20 10/10/20 15:50 16:22 18:18 WBC RBC Hgb Hct RDW Lymph % (Auto) Smyth % (Auto) Lymph # (Auto) S[place]th # (Auto) Seg Neutrophils % Lymphocytes % (Manual) Monocytes % (Manual) Seg Neutrophils # Seg Neutrophils # Man Lymphocytes # (Manual) Monocytes # (Manual) D-Dimer Heparin Anti-Xa Level ABG pH 7.171 L POC ABG pCO2 96.6 H POC ABG pO2 55.3 L ABG pO2 ABG HCO3 ABG O2 Saturation ABG Base Excess ABG Hemoglobin ABG Oxyhemoglobin 81.4 L ABG Sodium ABG Potassium ABG Chloride ABG Glucose 115 H VBG pH Oxyhemoglobin Carboxyhemoglobin Sodium Potassium Chloride Carbon Dioxide BUN Creatinine Glucose POC Glucose 132 H Lactic Acid Calcium Phosphorus Magnesium Total Bilirubin AST ALT Ammonia Lactate Dehydrogenase Total Creatine Kinase 1192 H CK-MB (CK-2) 21.7 H Troponin T 0.377 H* D NT-Pro-B Natriuret Pep Total Protein Albumin Triglycerides TSH Arterial Blood Glucose 115 H Arterial Blood Ionized Calcium Urine pH Urine WBC (Auto) Urine Creatinine 10/10/20 10/10/20 10/10/20 18:18 18:18 22:49 WBC 23.0 H RBC 5.12 H Hgb Hct RDW Lymph % (Auto) S[place]th % (Auto) Lymph # (Auto) S[place]th # (Auto) Seg Neutrophils % Lymphocytes % (Manual) 4.0 L Monocytes % (Manual) 9.0 H Seg Neutrophils # Seg Neutrophils # Man 13.8 H Lymphocytes # (Manual) 0.9 L Monocytes # (Manual) 2.1 H D-Dimer Heparin Anti-Xa Level ABG pH POC ABG pCO2 POC ABG pO2 ABG pO2 ABG HCO3 ABG O2 Saturation ABG Base Excess ABG Hemoglobin ABG Oxyhemoglobin ABG Sodium ABG Potassium ABG Chloride ABG Glucose VBG pH Oxyhemoglobin Carboxyhemoglobin Sodium 146 H Potassium Chloride Carbon Dioxide 34 H D BUN 27 H Creatinine 2.7 H Glucose 102 H POC Glucose Lactic Acid Calcium Phosphorus Magnesium Total Bilirubin AST 90 H ALT 66 H Ammonia Lactate Dehydrogenase Total Creatine Kinase CK-MB (CK-2) Troponin T 0.273 H* D NT-Pro-B Natriuret Pep Total Protein Albumin Triglycerides TSH Arterial Blood Glucose Arterial Blood Ionized Calcium Urine pH Urine WBC (Auto) Urine Creatinine 10/11/20 10/11/20 10/11/20 02:00 02:00 02:00 WBC 17.3 H RBC Hgb Hct RDW Lymph % (Auto) 3.9 L Smyth % (Auto) Lymph # (Auto) 0.7 L Smyth # (Auto) Seg Neutrophils % 93.0 H Lymphocytes % (Manual) Monocytes % (Manual) Seg Neutrophils # 16.1 H Seg Neutrophils # Man Lymphocytes # (Manual) Monocytes # (Manual) D-Dimer Heparin Anti-Xa Level ABG pH POC ABG pCO2 POC ABG pO2 ABG pO2 ABG HCO3 ABG O2 Saturation ABG Base Excess ABG Hemoglobin ABG Oxyhemoglobin ABG Sodium ABG Potassium ABG Chloride ABG Glucose VBG pH Oxyhemoglobin Carboxyhemoglobin Sodium 149 H Potassium 3.3 L Chloride 95.3 L Carbon Dioxide 37 H BUN 29 H Creatinine 2.6 H Glucose POC Glucose Lactic Acid Calcium Phosphorus Magnesium Total Bilirubin AST 80 H ALT 59 H Ammonia Lactate Dehydrogenase Total Creatine Kinase CK-MB (CK-2) Troponin T 0.201 H* D NT-Pro-B Natriuret Pep Total Protein Albumin 3.6 L Triglycerides TSH Arterial Blood Glucose Arterial Blood Ionized Calcium Urine pH Urine WBC (Auto) Urine Creatinine 10/11/20 10/11/20 10/11/20 03:51 08:35 11:15 WBC RBC Hgb Hct RDW Lymph % (Auto) S[place]th % (Auto) Lymph # (Auto) S[place]th # (Auto) Seg Neutrophils % Lymphocytes % (Manual) Monocytes % (Manual) Seg Neutrophils # Seg Neutrophils # Man Lymphocytes # (Manual) Monocytes # (Manual) D-Dimer Heparin Anti-Xa Level 0.22 L ABG pH 7.491 H POC ABG pCO2 57.6 H POC ABG pO2 ABG pO2 ABG HCO3 ABG O2 Saturation ABG Base Excess ABG Hemoglobin ABG Oxyhemoglobin ABG Sodium 150.0 H ABG Potassium 3.1 L ABG Chloride 96.0 L ABG Glucose 122 H VBG pH Oxyhemoglobin Carboxyhemoglobin Sodium Potassium Chloride Carbon Dioxide BUN Creatinine Glucose POC Glucose 151 H Lactic Acid Calcium Phosphorus Magnesium Total Bilirubin AST ALT Ammonia Lactate Dehydrogenase Total Creatine Kinase CK-MB (CK-2) Troponin T NT-Pro-B Natriuret Pep Total Protein Albumin Triglycerides TSH Arterial Blood Glucose 122 H Arterial Blood Ionized Calcium 3.9 L Urine pH Urine WBC (Auto) Urine Creatinine 10/11/20 10/11/20 10/11/20 13:30 13:30 13:30 WBC 15.0 H RBC Hgb Hct RDW Lymph % (Auto) S[place]th % (Auto) Lymph # (Auto) [place]th # (Auto) Seg Neutrophils % Lymphocytes % (Manual) Monocytes % (Manual) Seg Neutrophils # Seg Neutrophils # Man Lymphocytes # (Manual) Monocytes # (Manual) D-Dimer Heparin Anti-Xa Level ABG pH POC ABG pCO2 POC ABG pO2 ABG pO2 ABG HCO3 ABG O2 Saturation ABG Base Excess ABG Hemoglobin ABG Oxyhemoglobin ABG Sodium ABG Potassium ABG Chloride ABG Glucose VBG pH Oxyhemoglobin Carboxyhemoglobin Sodium Potassium Chloride Carbon Dioxide BUN Creatinine Glucose POC Glucose Lactic Acid Calcium Phosphorus Magnesium Total Bilirubin AST ALT Ammonia Lactate Dehydrogenase Total Creatine Kinase CK-MB (CK-2) Troponin T NT-Pro-B Natriuret Pep Total Protein Albumin Triglycerides TSH Arterial Blood Glucose Arterial Blood Ionized Calcium Urine pH 9.0 H Urine WBC (Auto) 18.0 H Urine Creatinine 80.5 H 10/11/20 10/11/20 10/12/20 17:17 23:14 03:53 WBC RBC Hgb Hct RDW Lymph % (Auto) Smyth % (Auto) Lymph # (Auto) [place]th # (Auto) Seg Neutrophils % Lymphocytes % (Manual) Monocytes % (Manual) Seg Neutrophils # Seg Neutrophils # Man Lymphocytes # (Manual) Monocytes # (Manual) D-Dimer Heparin Anti-Xa Level ABG pH 7.545 H POC ABG pCO2 54.6 H POC ABG pO2 231.9 H ABG pO2 ABG HCO3 ABG O2 Saturation ABG Base Excess ABG Hemoglobin ABG Oxyhemoglobin 98.5 H ABG Sodium 150.5 H ABG Potassium 3.2 L ABG Chloride 96.0 L ABG Glucose 148 H VBG pH Oxyhemoglobin Carboxyhemoglobin Sodium Potassium Chloride Carbon Dioxide BUN Creatinine Glucose POC Glucose 121 H 135 H Lactic Acid Calcium Phosphorus Magnesium Total Bilirubin AST ALT Ammonia Lactate Dehydrogenase Total Creatine Kinase CK-MB (CK-2) Troponin T NT-Pro-B Natriuret Pep Total Protein Albumin Triglycerides TSH Arterial Blood Glucose 148 H Arterial Blood Ionized Calcium 3.8 L Urine pH Urine WBC (Auto) Urine Creatinine 10/12/20 10/12/20 10/12/20 04:00 05:10 05:12 WBC 14.3 H RBC Hgb 11.6 L Hct 35.2 L RDW Lymph % (Auto) Smyth % (Auto) Lymph # (Auto) S[place]th # (Auto) Seg Neutrophils % Lymphocytes % (Manual) Monocytes % (Manual) Seg Neutrophils # Seg Neutrophils # Man Lymphocytes # (Manual) Monocytes # (Manual) D-Dimer Heparin Anti-Xa Level ABG pH POC ABG pCO2 POC ABG pO2 ABG pO2 ABG HCO3 ABG O2 Saturation ABG Base Excess ABG Hemoglobin ABG Oxyhemoglobin ABG Sodium ABG Potassium ABG Chloride ABG Glucose VBG pH Oxyhemoglobin Carboxyhemoglobin Sodium 155 H Potassium 3.3 L Chloride 97.9 L Carbon Dioxide 47 H* D BUN 50 H Creatinine 3.4 H Glucose 146 H POC Glucose 137 H Lactic Acid Calcium 8.0 L Phosphorus Magnesium Total Bilirubin AST ALT Ammonia Lactate Dehydrogenase Total Creatine Kinase CK-MB (CK-2) Troponin T 0.125 H* D NT-Pro-B Natriuret Pep Total Protein Albumin Triglycerides TSH Arterial Blood Glucose Arterial Blood Ionized Calcium Urine pH Urine WBC (Auto) Urine Creatinine 10/12/20 10/12/20 10/12/20 11:39 16:01 19:49 WBC RBC Hgb Hct RDW Lymph % (Auto) [place]th % (Auto) Lymph # (Auto) S[place]th # (Auto) Seg Neutrophils % Lymphocytes % (Manual) Monocytes % (Manual) Seg Neutrophils # Seg Neutrophils # Man Lymphocytes # (Manual) Monocytes # (Manual) D-Dimer Heparin Anti-Xa Level ABG pH POC ABG pCO2 POC ABG pO2 ABG pO2 ABG HCO3 ABG O2 Saturation ABG Base Excess ABG Hemoglobin ABG Oxyhemoglobin ABG Sodium ABG Potassium ABG Chloride ABG Glucose VBG pH Oxyhemoglobin Carboxyhemoglobin Sodium 157 H Potassium 3.3 L Chloride Carbon Dioxide 47 H* BUN 52 H Creatinine 3.0 H Glucose 137 H POC Glucose 138 H 119 H Lactic Acid Calcium 8.0 L Phosphorus Magnesium Total Bilirubin AST ALT Ammonia Lactate Dehydrogenase Total Creatine Kinase CK-MB (CK-2) Troponin T NT-Pro-B Natriuret Pep Total Protein Albumin Triglycerides TSH Arterial Blood Glucose Arterial Blood Ionized Calcium Urine pH Urine WBC (Auto) Urine Creatinine 10/12/20 10/13/20 10/13/20 23:37 02:28 04:52 WBC RBC Hgb Hct RDW Lymph % (Auto) S[place]th % (Auto) Lymph # (Auto) S[place]th # (Auto) Seg Neutrophils % Lymphocytes % (Manual) Monocytes % (Manual) Seg Neutrophils # Seg Neutrophils # Man Lymphocytes # (Manual) Monocytes # (Manual) D-Dimer Heparin Anti-Xa Level ABG pH 7.485 H POC ABG pCO2 57.1 H POC ABG pO2 ABG pO2 ABG HCO3 ABG O2 Saturation ABG Base Excess ABG Hemoglobin ABG Oxyhemoglobin ABG Sodium 152.4 H ABG Potassium ABG Chloride ABG Glucose 129 H VBG pH Oxyhemoglobin Carboxyhemoglobin Sodium 155 H Potassium Chloride Carbon Dioxide 45 H* BUN 52 H Creatinine 2.7 H Glucose 121 H POC Glucose 131 H Lactic Acid Calcium Phosphorus Magnesium 2.40 H Total Bilirubin AST ALT Ammonia Lactate Dehydrogenase Total Creatine Kinase CK-MB (CK-2) Troponin T NT-Pro-B Natriuret Pep Total Protein Albumin Triglycerides 278 H TSH Arterial Blood Glucose 129 H Arterial Blood Ionized Calcium 4.1 L Urine pH Urine WBC (Auto) Urine Creatinine 10/13/20 10/13/20 10/13/20 04:52 05:13 11:37 WBC 14.7 H RBC Hgb 11.7 L Hct RDW 15.8 H Lymph % (Auto) Smyth % (Auto) Lymph # (Auto) S[place]th # (Auto) Seg Neutrophils % Lymphocytes % (Manual) Monocytes % (Manual) Seg Neutrophils # Seg Neutrophils # Man Lymphocytes # (Manual) Monocytes # (Manual) D-Dimer Heparin Anti-Xa Level ABG pH POC ABG pCO2 POC ABG pO2 ABG pO2 ABG HCO3 ABG O2 Saturation ABG Base Excess ABG Hemoglobin ABG Oxyhemoglobin ABG Sodium ABG Potassium ABG Chloride ABG Glucose VBG pH Oxyhemoglobin Carboxyhemoglobin Sodium Potassium Chloride Carbon Dioxide BUN Creatinine Glucose POC Glucose 116 H 116 H Lactic Acid Calcium Phosphorus Magnesium Total Bilirubin AST ALT Ammonia Lactate Dehydrogenase Total Creatine Kinase CK-MB (CK-2) Troponin T NT-Pro-B Natriuret Pep Total Protein Albumin Triglycerides TSH Arterial Blood Glucose Arterial Blood Ionized Calcium Urine pH Urine WBC (Auto) Urine Creatinine 10/13/20 10/14/20 10/14/20 17:50 03:45 04:46 WBC 11.1 H RBC Hgb Hct RDW 15.3 H Lymph % (Auto) [place]th % (Auto) Lymph # (Auto) [place]th # (Auto) Seg Neutrophils % Lymphocytes % (Manual) Monocytes % (Manual) Seg Neutrophils # Seg Neutrophils # Man Lymphocytes # (Manual) Monocytes # (Manual) D-Dimer Heparin Anti-Xa Level ABG pH POC ABG pCO2 59.6 H POC ABG pO2 ABG pO2 ABG HCO3 ABG O2 Saturation ABG Base Excess ABG Hemoglobin ABG Oxyhemoglobin ABG Sodium 151.4 H ABG Potassium 3.3 L ABG Chloride ABG Glucose 138 H VBG pH Oxyhemoglobin Carboxyhemoglobin 1.6 H Sodium Potassium Chloride Carbon Dioxide BUN Creatinine Glucose POC Glucose 140 H Lactic Acid Calcium Phosphorus Magnesium Total Bilirubin AST ALT Ammonia Lactate Dehydrogenase Total Creatine Kinase CK-MB (CK-2) Troponin T NT-Pro-B Natriuret Pep Total Protein Albumin Triglycerides TSH Arterial Blood Glucose 138 H Arterial Blood Ionized Calcium 4.5 L Urine pH Urine WBC (Auto) Urine Creatinine 10/14/20 10/14/20 10/14/20 04:46 05:10 11:11 WBC RBC Hgb Hct RDW Lymph % (Auto) [place]th % (Auto) Lymph # (Auto) [place]th # (Auto) Seg Neutrophils % Lymphocytes % (Manual) Monocytes % (Manual) Seg Neutrophils # Seg Neutrophils # Man Lymphocytes # (Manual) Monocytes # (Manual) D-Dimer Heparin Anti-Xa Level ABG pH POC ABG pCO2 POC ABG pO2 ABG pO2 ABG HCO3 ABG O2 Saturation ABG Base Excess ABG Hemoglobin ABG Oxyhemoglobin ABG Sodium ABG Potassium ABG Chloride ABG Glucose VBG pH Oxyhemoglobin Carboxyhemoglobin Sodium 152 H Potassium 3.5 L Chloride Carbon Dioxide 38 H D BUN 46 H Creatinine 2.3 H Glucose 127 H POC Glucose 116 H 114 H Lactic Acid Calcium Phosphorus Magnesium Total Bilirubin AST ALT Ammonia Lactate Dehydrogenase Total Creatine Kinase CK-MB (CK-2) Troponin T NT-Pro-B Natriuret Pep Total Protein Albumin Triglycerides TSH Arterial Blood Glucose Arterial Blood Ionized Calcium Urine pH Urine WBC (Auto) Urine Creatinine 10/14/20 10/14/20 10/15/20 18:53 23:23 04:12 WBC RBC Hgb Hct RDW Lymph % (Auto) [place]th % (Auto) Lymph # (Auto) [place]th # (Auto) Seg Neutrophils % Lymphocytes % (Manual) Monocytes % (Manual) Seg Neutrophils # Seg Neutrophils # Man Lymphocytes # (Manual) Monocytes # (Manual) D-Dimer Heparin Anti-Xa Level ABG pH POC ABG pCO2 POC ABG pO2 ABG pO2 ABG HCO3 ABG O2 Saturation ABG Base Excess ABG Hemoglobin ABG Oxyhemoglobin ABG Sodium ABG Potassium ABG Chloride ABG Glucose VBG pH Oxyhemoglobin Carboxyhemoglobin Sodium 149 H Potassium 3.2 L Chloride Carbon Dioxide 37 H BUN 40 H Creatinine 2.0 H Glucose 124 H POC Glucose 128 H 113 H Lactic Acid Calcium Phosphorus Magnesium Total Bilirubin AST ALT Ammonia Lactate Dehydrogenase Total Creatine Kinase CK-MB (CK-2) Troponin T NT-Pro-B Natriuret Pep Total Protein Albumin Triglycerides TSH Arterial Blood Glucose Arterial Blood Ionized Calcium Urine pH Urine WBC (Auto) Urine Creatinine 10/15/20 10/15/20 10/15/20 04:22 11:39 17:36 WBC RBC Hgb Hct RDW Lymph % (Auto) [place]th % (Auto) Lymph # (Auto) [place]th # (Auto) Seg Neutrophils % Lymphocytes % (Manual) Monocytes % (Manual) Seg Neutrophils # Seg Neutrophils # Man Lymphocytes # (Manual) Monocytes # (Manual) D-Dimer Heparin Anti-Xa Level ABG pH POC ABG pCO2 POC ABG pO2 ABG pO2 115.0 H ABG HCO3 38.1 H ABG O2 Saturation ABG Base Excess 11.3 H ABG Hemoglobin 11.0 L ABG Oxyhemoglobin ABG Sodium ABG Potassium ABG Chloride ABG Glucose VBG pH Oxyhemoglobin Carboxyhemoglobin Sodium Potassium Chloride Carbon Dioxide BUN Creatinine Glucose POC Glucose 123 H 118 H Lactic Acid Calcium Phosphorus Magnesium Total Bilirubin AST ALT Ammonia Lactate Dehydrogenase Total Creatine Kinase CK-MB (CK-2) Troponin T NT-Pro-B Natriuret Pep Total Protein Albumin Triglycerides TSH Arterial Blood Glucose Arterial Blood Ionized Calcium Urine pH Urine WBC (Auto) Urine Creatinine 10/15/20 10/16/20 10/16/20 23:18 03:13 05:10 WBC RBC Hgb Hct RDW Lymph % (Auto) [place]th % (Auto) Lymph # (Auto) [place]th # (Auto) Seg Neutrophils % Lymphocytes % (Manual) Monocytes % (Manual) Seg Neutrophils # Seg Neutrophils # Man Lymphocytes # (Manual) Monocytes # (Manual) D-Dimer Heparin Anti-Xa Level ABG pH POC ABG pCO2 POC ABG pO2 ABG pO2 104.5 H ABG HCO3 35.1 H ABG O2 Saturation ABG Base Excess 9.5 H ABG Hemoglobin 7.9 L ABG Oxyhemoglobin ABG Sodium ABG Potassium ABG Chloride ABG Glucose VBG pH Oxyhemoglobin Carboxyhemoglobin Sodium Potassium 3.3 L Chloride Carbon Dioxide 33 H BUN 37 H Creatinine 1.4 H Glucose 148 H POC Glucose 135 H Lactic Acid Calcium Phosphorus Magnesium 2.40 H Total Bilirubin AST ALT Ammonia Lactate Dehydrogenase Total Creatine Kinase CK-MB (CK-2) Troponin T NT-Pro-B Natriuret Pep Total Protein Albumin Triglycerides TSH Arterial Blood Glucose Arterial Blood Ionized Calcium Urine pH Urine WBC (Auto) Urine Creatinine 10/16/20 10/16/20 10/16/20 06:36 11:08 17:07 WBC RBC Hgb Hct RDW Lymph % (Auto) [place] % (Auto) Lymph # (Auto) [place] # (Auto) Seg Neutrophils % Lymphocytes % (Manual) Monocytes % (Manual) Seg Neutrophils # Seg Neutrophils # Man Lymphocytes # (Manual) Monocytes # (Manual) D-Dimer Heparin Anti-Xa Level ABG pH POC ABG pCO2 POC ABG pO2 ABG pO2 ABG HCO3 ABG O2 Saturation ABG Base Excess ABG Hemoglobin ABG Oxyhemoglobin ABG Sodium ABG Potassium ABG Chloride ABG Glucose VBG pH Oxyhemoglobin Carboxyhemoglobin Sodium Potassium Chloride Carbon Dioxide BUN Creatinine Glucose POC Glucose 150 H 111 H 132 H Lactic Acid Calcium Phosphorus Magnesium Total Bilirubin AST ALT Ammonia Lactate Dehydrogenase Total Creatine Kinase CK-MB (CK-2) Troponin T NT-Pro-B Natriuret Pep Total Protein Albumin Triglycerides TSH Arterial Blood Glucose Arterial Blood Ionized Calcium Urine pH Urine WBC (Auto) Urine Creatinine 10/16/20 10/17/20 10/17/20 23:38 03:32 03:32 WBC RBC Hgb Hct RDW Lymph % (Auto) [place] % (Auto) Lymph # (Auto) [place] # (Auto) Seg Neutrophils % Lymphocytes % (Manual) Monocytes % (Manual) Seg Neutrophils # Seg Neutrophils # Man Lymphocytes # (Manual) Monocytes # (Manual) D-Dimer Heparin Anti-Xa Level ABG pH POC ABG pCO2 POC ABG pO2 ABG pO2 ABG HCO3 ABG O2 Saturation ABG Base Excess ABG Hemoglobin ABG Oxyhemoglobin ABG Sodium ABG Potassium ABG Chloride ABG Glucose VBG pH Oxyhemoglobin Carboxyhemoglobin Sodium 146 H Potassium Chloride Carbon Dioxide 32 H BUN 57 H Creatinine 2.4 H D Glucose 124 H POC Glucose 117 H Lactic Acid Calcium Phosphorus 5.20 H D Magnesium Total Bilirubin AST ALT Ammonia Lactate Dehydrogenase Total Creatine Kinase CK-MB (CK-2) Troponin T NT-Pro-B Natriuret Pep Total Protein Albumin Triglycerides TSH Arterial Blood Glucose Arterial Blood Ionized Calcium Urine pH Urine WBC (Auto) Urine Creatinine 10/17/20 10/17/20 10/18/20 05:10 17:33 00:13 WBC RBC Hgb Hct RDW Lymph % (Auto) [place] % (Auto) Lymph # (Auto) [place] # (Auto) Seg Neutrophils % Lymphocytes % (Manual) Monocytes % (Manual) Seg Neutrophils # Seg Neutrophils # Man Lymphocytes # (Manual) Monocytes # (Manual) D-Dimer Heparin Anti-Xa Level ABG pH POC ABG pCO2 POC ABG pO2 ABG pO2 ABG HCO3 ABG O2 Saturation ABG Base Excess ABG Hemoglobin ABG Oxyhemoglobin ABG Sodium ABG Potassium ABG Chloride ABG Glucose VBG pH Oxyhemoglobin Carboxyhemoglobin Sodium Potassium Chloride Carbon Dioxide BUN Creatinine Glucose POC Glucose 122 H 121 H 23 L Lactic Acid Calcium Phosphorus Magnesium Total Bilirubin AST ALT Ammonia Lactate Dehydrogenase Total Creatine Kinase CK-MB (CK-2) Troponin T NT-Pro-B Natriuret Pep Total Protein Albumin Triglycerides TSH Arterial Blood Glucose Arterial Blood Ionized Calcium Urine pH Urine WBC (Auto) Urine Creatinine 10/18/20 10/18/20 10/18/20 00:16 03:27 03:27 WBC RBC Hgb 11.7 L Hct RDW Lymph % (Auto) [place] % (Auto) Lymph # (Auto) [place] # (Auto) Seg Neutrophils % Lymphocytes % (Manual) Monocytes % (Manual) Seg Neutrophils # Seg Neutrophils # Man Lymphocytes # (Manual) Monocytes # (Manual) D-Dimer Heparin Anti-Xa Level ABG pH POC ABG pCO2 POC ABG pO2 ABG pO2 ABG HCO3 ABG O2 Saturation ABG Base Excess ABG Hemoglobin ABG Oxyhemoglobin ABG Sodium ABG Potassium ABG Chloride ABG Glucose VBG pH Oxyhemoglobin Carboxyhemoglobin Sodium Potassium Chloride 97.6 L Carbon Dioxide BUN 90 H Creatinine 3.3 H Glucose 146 H POC Glucose 134 H Lactic Acid Calcium Phosphorus Magnesium Total Bilirubin 1.70 H AST ALT Ammonia Lactate Dehydrogenase Total Creatine Kinase CK-MB (CK-2) Troponin T NT-Pro-B Natriuret Pep Total Protein Albumin 3.1 L Triglycerides TSH Arterial Blood Glucose Arterial Blood Ionized Calcium Urine pH Urine WBC (Auto) Urine Creatinine 10/18/20 10/18/20 10/18/20 05:09 11:19 17:15 WBC RBC Hgb Hct RDW Lymph % (Auto) [place] % (Auto) Lymph # (Auto) [place] # (Auto) Seg Neutrophils % Lymphocytes % (Manual) Monocytes % (Manual) Seg Neutrophils # Seg Neutrophils # Man Lymphocytes # (Manual) Monocytes # (Manual) D-Dimer Heparin Anti-Xa Level ABG pH POC ABG pCO2 POC ABG pO2 ABG pO2 ABG HCO3 ABG O2 Saturation ABG Base Excess ABG Hemoglobin ABG Oxyhemoglobin ABG Sodium ABG Potassium ABG Chloride ABG Glucose VBG pH Oxyhemoglobin Carboxyhemoglobin Sodium Potassium Chloride Carbon Dioxide BUN Creatinine Glucose POC Glucose 144 H 145 H 151 H Lactic Acid Calcium Phosphorus Magnesium Total Bilirubin AST ALT Ammonia Lactate Dehydrogenase Total Creatine Kinase CK-MB (CK-2) Troponin T NT-Pro-B Natriuret Pep Total Protein Albumin Triglycerides TSH Arterial Blood Glucose Arterial Blood Ionized Calcium Urine pH Urine WBC (Auto) Urine Creatinine 10/18/20 10/18/20 10/19/20 23:16 Unknown 04:55 WBC RBC Hgb Hct RDW Lymph % (Auto) [place] % (Auto) Lymph # (Auto) [place] # (Auto) Seg Neutrophils % Lymphocytes % (Manual) Monocytes % (Manual) Seg Neutrophils # Seg Neutrophils # Man Lymphocytes # (Manual) Monocytes # (Manual) D-Dimer Heparin Anti-Xa Level ABG pH POC ABG pCO2 POC ABG pO2 ABG pO2 ABG HCO3 ABG O2 Saturation ABG Base Excess ABG Hemoglobin ABG Oxyhemoglobin ABG Sodium ABG Potassium ABG Chloride ABG Glucose VBG pH Oxyhemoglobin Carboxyhemoglobin Sodium Potassium Chloride Carbon Dioxide BUN 104 H Creatinine 3.1 H Glucose 139 H POC Glucose 123 H Lactic Acid Calcium Phosphorus Magnesium Total Bilirubin AST ALT Ammonia Lactate Dehydrogenase Total Creatine Kinase CK-MB (CK-2) Troponin T NT-Pro-B Natriuret Pep Total Protein Albumin Triglycerides TSH Arterial Blood Glucose Arterial Blood Ionized Calcium Urine pH Urine WBC (Auto) 115.0 H Urine Creatinine 10/19/20 10/19/20 10/19/20 04:55 11:35 13:14 WBC 15.1 H RBC Hgb 11.1 L Hct 34.4 L RDW Lymph % (Auto) 4.2 L [place] % (Auto) 11.9 H Lymph # (Auto) 0.6 L [place] # (Auto) 1.8 H Seg Neutrophils % 82.0 H Lymphocytes % (Manual) Monocytes % (Manual) Seg Neutrophils # 12.4 H Seg Neutrophils # Man Lymphocytes # (Manual) Monocytes # (Manual) D-Dimer Heparin Anti-Xa Level ABG pH POC ABG pCO2 POC ABG pO2 ABG pO2 ABG HCO3 ABG O2 Saturation ABG Base Excess ABG Hemoglobin ABG Oxyhemoglobin ABG Sodium ABG Potassium ABG Chloride ABG Glucose VBG pH Oxyhemoglobin Carboxyhemoglobin Sodium Potassium Chloride Carbon Dioxide BUN Creatinine Glucose POC Glucose 136 H Lactic Acid Calcium Phosphorus Magnesium Total Bilirubin AST ALT Ammonia Lactate Dehydrogenase Total Creatine Kinase CK-MB (CK-2) Troponin T NT-Pro-B Natriuret Pep Total Protein Albumin Triglycerides TSH Arterial Blood Glucose Arterial Blood Ionized Calcium Urine pH Urine WBC (Auto) Urine Creatinine 93.7 H 10/19/20 10/19/20 10/20/20 17:53 23:39 04:30 WBC RBC Hgb Hct RDW Lymph % (Auto) [place] % (Auto) Lymph # (Auto) [place] # (Auto) Seg Neutrophils % Lymphocytes % (Manual) Monocytes % (Manual) Seg Neutrophils # Seg Neutrophils # Man Lymphocytes # (Manual) Monocytes # (Manual) D-Dimer Heparin Anti-Xa Level ABG pH POC ABG pCO2 POC ABG pO2 ABG pO2 ABG HCO3 ABG O2 Saturation ABG Base Excess ABG Hemoglobin ABG Oxyhemoglobin ABG Sodium ABG Potassium ABG Chloride ABG Glucose VBG pH Oxyhemoglobin Carboxyhemoglobin Sodium Potassium Chloride Carbon Dioxide BUN 104 H Creatinine 2.8 H Glucose 151 H POC Glucose 137 H 133 H Lactic Acid Calcium Phosphorus Magnesium Total Bilirubin AST ALT Ammonia Lactate Dehydrogenase Total Creatine Kinase CK-MB (CK-2) Troponin T NT-Pro-B Natriuret Pep Total Protein Albumin Triglycerides TSH Arterial Blood Glucose Arterial Blood Ionized Calcium Urine pH Urine WBC (Auto) Urine Creatinine 10/20/20 10/20/20 10/20/20 04:30 05:38 11:34 WBC 17.9 H RBC Hgb 11.7 L Hct RDW Lymph % (Auto) [place] % (Auto) Lymph # (Auto) [place] # (Auto) Seg Neutrophils % Lymphocytes % (Manual) Monocytes % (Manual) Seg Neutrophils # Seg Neutrophils # Man Lymphocytes # (Manual) Monocytes # (Manual) D-Dimer Heparin Anti-Xa Level ABG pH POC ABG pCO2 POC ABG pO2 ABG pO2 ABG HCO3 ABG O2 Saturation ABG Base Excess ABG Hemoglobin ABG Oxyhemoglobin ABG Sodium ABG Potassium ABG Chloride ABG Glucose VBG pH Oxyhemoglobin Carboxyhemoglobin Sodium Potassium Chloride Carbon Dioxide BUN Creatinine Glucose POC Glucose 164 H 148 H Lactic Acid Calcium Phosphorus Magnesium Total Bilirubin AST ALT Ammonia Lactate Dehydrogenase Total Creatine Kinase CK-MB (CK-2) Troponin T NT-Pro-B Natriuret Pep Total Protein Albumin Triglycerides TSH Arterial Blood Glucose Arterial Blood Ionized Calcium Urine pH Urine WBC (Auto) Urine Creatinine 10/20/20 10/20/20 10/20/20 17:40 20:20 23:29 WBC RBC Hgb Hct RDW Lymph % (Auto) [place] % (Auto) Lymph # (Auto) [place] # (Auto) Seg Neutrophils % Lymphocytes % (Manual) Monocytes % (Manual) Seg Neutrophils # Seg Neutrophils # Man Lymphocytes # (Manual) Monocytes # (Manual) D-Dimer Heparin Anti-Xa Level ABG pH 7.292 L POC ABG pCO2 68.5 H POC ABG pO2 ABG pO2 ABG HCO3 ABG O2 Saturation ABG Base Excess ABG Hemoglobin 11.6 L ABG Oxyhemoglobin ABG Sodium ABG Potassium ABG Chloride ABG Glucose 145 H VBG pH Oxyhemoglobin Carboxyhemoglobin Sodium Potassium Chloride Carbon Dioxide BUN Creatinine Glucose POC Glucose 130 H 136 H Lactic Acid Calcium Phosphorus Magnesium Total Bilirubin AST ALT Ammonia Lactate Dehydrogenase Total Creatine Kinase CK-MB (CK-2) Troponin T NT-Pro-B Natriuret Pep Total Protein Albumin Triglycerides TSH Arterial Blood Glucose 145 H Arterial Blood Ionized Calcium Urine pH Urine WBC (Auto) Urine Creatinine 10/21/20 10/21/20 10/21/20 04:20 06:26 06:30 WBC RBC Hgb Hct RDW Lymph % (Auto) [place] % (Auto) Lymph # (Auto) [place] # (Auto) Seg Neutrophils % Lymphocytes % (Manual) Monocytes % (Manual) Seg Neutrophils # Seg Neutrophils # Man Lymphocytes # (Manual) Monocytes # (Manual) D-Dimer Heparin Anti-Xa Level ABG pH 7.262 L POC ABG pCO2 72.4 H POC ABG pO2 81.6 L ABG pO2 ABG HCO3 ABG O2 Saturation ABG Base Excess ABG Hemoglobin 11.6 L ABG Oxyhemoglobin ABG Sodium ABG Potassium ABG Chloride ABG Glucose 140 H VBG pH Oxyhemoglobin Carboxyhemoglobin Sodium Potassium Chloride Carbon Dioxide 33 H BUN 104 H Creatinine 2.9 H Glucose 153 H POC Glucose 128 H Lactic Acid Calcium Phosphorus Magnesium Total Bilirubin AST ALT Ammonia Lactate Dehydrogenase Total Creatine Kinase CK-MB (CK-2) Troponin T NT-Pro-B Natriuret Pep Total Protein Albumin Triglycerides TSH Arterial Blood Glucose 140 H Arterial Blood Ionized Calcium Urine pH Urine WBC (Auto) Urine Creatinine 10/21/20 10/21/20 10/21/20 06:30 11:24 17:21 WBC 13.3 H RBC Hgb 10.7 L Hct 32.7 L RDW Lymph % (Auto) [place] % (Auto) Lymph # (Auto) [place] # (Auto) Seg Neutrophils % Lymphocytes % (Manual) Monocytes % (Manual) Seg Neutrophils # Seg Neutrophils # Man Lymphocytes # (Manual) Monocytes # (Manual) D-Dimer Heparin Anti-Xa Level ABG pH POC ABG pCO2 POC ABG pO2 ABG pO2 ABG HCO3 ABG O2 Saturation ABG Base Excess ABG Hemoglobin ABG Oxyhemoglobin ABG Sodium ABG Potassium ABG Chloride ABG Glucose VBG pH Oxyhemoglobin Carboxyhemoglobin Sodium Potassium Chloride Carbon Dioxide BUN Creatinine Glucose POC Glucose 178 H 138 H Lactic Acid Calcium Phosphorus Magnesium Total Bilirubin AST ALT Ammonia Lactate Dehydrogenase Total Creatine Kinase CK-MB (CK-2) Troponin T NT-Pro-B Natriuret Pep Total Protein Albumin Triglycerides TSH Arterial Blood Glucose Arterial Blood Ionized Calcium Urine pH Urine WBC (Auto) Urine Creatinine 10/22/20 10/22/20 10/22/20 00:05 04:30 06:15 WBC RBC Hgb Hct RDW Lymph % (Auto) [place] % (Auto) Lymph # (Auto) [place] # (Auto) Seg Neutrophils % Lymphocytes % (Manual) Monocytes % (Manual) Seg Neutrophils # Seg Neutrophils # Man Lymphocytes # (Manual) Monocytes # (Manual) D-Dimer Heparin Anti-Xa Level ABG pH 7.225 L POC ABG pCO2 76.6 H POC ABG pO2 ABG pO2 ABG HCO3 ABG O2 Saturation ABG Base Excess ABG Hemoglobin 11.1 L ABG Oxyhemoglobin ABG Sodium ABG Potassium ABG Chloride ABG Glucose 151 H VBG pH Oxyhemoglobin Carboxyhemoglobin Sodium Potassium Chloride Carbon Dioxide 32 H BUN 103 H Creatinine 2.7 H Glucose 151 H POC Glucose 135 H Lactic Acid Calcium Phosphorus Magnesium Total Bilirubin AST ALT Ammonia Lactate Dehydrogenase Total Creatine Kinase CK-MB (CK-2) Troponin T NT-Pro-B Natriuret Pep Total Protein Albumin Triglycerides TSH Arterial Blood Glucose 151 H Arterial Blood Ionized Calcium Urine pH Urine WBC (Auto) Urine Creatinine 10/22/20 10/22/20 10/22/20 06:18 11:34 11:44 WBC RBC Hgb Hct RDW Lymph % (Auto) [place] % (Auto) Lymph # (Auto) [place] # (Auto) Seg Neutrophils % Lymphocytes % (Manual) Monocytes % (Manual) Seg Neutrophils # Seg Neutrophils # Man Lymphocytes # (Manual) Monocytes # (Manual) D-Dimer Heparin Anti-Xa Level ABG pH 7.278 L POC ABG pCO2 67.8 H POC ABG pO2 ABG pO2 ABG HCO3 ABG O2 Saturation ABG Base Excess ABG Hemoglobin 10.2 L ABG Oxyhemoglobin ABG Sodium ABG Potassium ABG Chloride ABG Glucose 172 H VBG pH Oxyhemoglobin Carboxyhemoglobin Sodium Potassium Chloride Carbon Dioxide BUN Creatinine Glucose POC Glucose 137 H 147 H Lactic Acid Calcium Phosphorus Magnesium Total Bilirubin AST ALT Ammonia Lactate Dehydrogenase Total Creatine Kinase CK-MB (CK-2) Troponin T NT-Pro-B Natriuret Pep Total Protein Albumin Triglycerides TSH Arterial Blood Glucose 172 H Arterial Blood Ionized Calcium Urine pH Urine WBC (Auto) Urine Creatinine 10/22/20 10/22/20 10/23/20 17:40 23:55 05:11 WBC RBC Hgb Hct RDW Lymph % (Auto) [place] % (Auto) Lymph # (Auto) [place] # (Auto) Seg Neutrophils % Lymphocytes % (Manual) Monocytes % (Manual) Seg Neutrophils # Seg Neutrophils # Man Lymphocytes # (Manual) Monocytes # (Manual) D-Dimer Heparin Anti-Xa Level ABG pH POC ABG pCO2 63.6 H POC ABG pO2 81.2 L ABG pO2 ABG HCO3 ABG O2 Saturation ABG Base Excess ABG Hemoglobin 10.6 L ABG Oxyhemoglobin ABG Sodium ABG Potassium ABG Chloride 109.0 H ABG Glucose 149 H VBG pH Oxyhemoglobin Carboxyhemoglobin Sodium Potassium Chloride Carbon Dioxide BUN Creatinine Glucose POC Glucose 141 H 139 H Lactic Acid Calcium Phosphorus Magnesium Total Bilirubin AST ALT Ammonia Lactate Dehydrogenase Total Creatine Kinase CK-MB (CK-2) Troponin T NT-Pro-B Natriuret Pep Total Protein Albumin Triglycerides TSH Arterial Blood Glucose 149 H Arterial Blood Ionized Calcium Urine pH Urine WBC (Auto) Urine Creatinine 10/23/20 10/23/20 10/23/20 05:39 06:00 11:32 WBC RBC Hgb Hct RDW Lymph % (Auto) [place] % (Auto) Lymph # (Auto) [place] # (Auto) Seg Neutrophils % Lymphocytes % (Manual) Monocytes % (Manual) Seg Neutrophils # Seg Neutrophils # Man Lymphocytes # (Manual) Monocytes # (Manual) D-Dimer Heparin Anti-Xa Level ABG pH POC ABG pCO2 POC ABG pO2 ABG pO2 ABG HCO3 ABG O2 Saturation ABG Base Excess ABG Hemoglobin ABG Oxyhemoglobin ABG Sodium ABG Potassium ABG Chloride ABG Glucose VBG pH Oxyhemoglobin Carboxyhemoglobin Sodium 146 H Potassium Chloride Carbon Dioxide 35 H BUN 92 H Creatinine 2.0 H Glucose 144 H POC Glucose 139 H 176 H Lactic Acid Calcium Phosphorus Magnesium Total Bilirubin AST ALT Ammonia Lactate Dehydrogenase Total Creatine Kinase CK-MB (CK-2) Troponin T NT-Pro-B Natriuret Pep Total Protein Albumin Triglycerides TSH Arterial Blood Glucose Arterial Blood Ionized Calcium Urine pH Urine WBC (Auto) Urine Creatinine 10/23/20 10/23/20 10/24/20 11:34 17:55 05:33 WBC RBC Hgb Hct RDW Lymph % (Auto) [place] % (Auto) Lymph # (Auto) [place] # (Auto) Seg Neutrophils % Lymphocytes % (Manual) Monocytes % (Manual) Seg Neutrophils # Seg Neutrophils # Man Lymphocytes # (Manual) Monocytes # (Manual) D-Dimer Heparin Anti-Xa Level ABG pH POC ABG pCO2 POC ABG pO2 ABG pO2 ABG HCO3 ABG O2 Saturation ABG Base Excess ABG Hemoglobin ABG Oxyhemoglobin ABG Sodium ABG Potassium ABG Chloride ABG Glucose VBG pH Oxyhemoglobin Carboxyhemoglobin Sodium 147 H Potassium Chloride Carbon Dioxide 32 H BUN 76 H Creatinine 1.7 H Glucose 172 H POC Glucose 173 H 135 H Lactic Acid Calcium Phosphorus Magnesium Total Bilirubin AST ALT Ammonia Lactate Dehydrogenase Total Creatine Kinase CK-MB (CK-2) Troponin T NT-Pro-B Natriuret Pep Total Protein Albumin Triglycerides TSH Arterial Blood Glucose Arterial Blood Ionized Calcium Urine pH Urine WBC (Auto) Urine Creatinine 10/24/20 10/24/20 10/24/20 05:41 12:09 18:09 WBC RBC Hgb Hct RDW Lymph % (Auto) [place] % (Auto) Lymph # (Auto) [place] # (Auto) Seg Neutrophils % Lymphocytes % (Manual) Monocytes % (Manual) Seg Neutrophils # Seg Neutrophils # Man Lymphocytes # (Manual) Monocytes # (Manual) D-Dimer Heparin Anti-Xa Level ABG pH POC ABG pCO2 POC ABG pO2 ABG pO2 ABG HCO3 ABG O2 Saturation ABG Base Excess ABG Hemoglobin ABG Oxyhemoglobin ABG Sodium ABG Potassium ABG Chloride ABG Glucose VBG pH Oxyhemoglobin Carboxyhemoglobin Sodium Potassium Chloride Carbon Dioxide BUN Creatinine Glucose POC Glucose 156 H 154 H 132 H Lactic Acid Calcium Phosphorus Magnesium Total Bilirubin AST ALT Ammonia Lactate Dehydrogenase Total Creatine Kinase CK-MB (CK-2) Troponin T NT-Pro-B Natriuret Pep Total Protein Albumin Triglycerides TSH Arterial Blood Glucose Arterial Blood Ionized Calcium Urine pH Urine WBC (Auto) Urine Creatinine 10/24/20 10/25/20 10/25/20 23:39 05:29 08:55 WBC RBC Hgb Hct RDW Lymph % (Auto) [place] % (Auto) Lymph # (Auto) [place] # (Auto) Seg Neutrophils % Lymphocytes % (Manual) Monocytes % (Manual) Seg Neutrophils # Seg Neutrophils # Man Lymphocytes # (Manual) Monocytes # (Manual) D-Dimer Heparin Anti-Xa Level ABG pH POC ABG pCO2 POC ABG pO2 ABG pO2 ABG HCO3 ABG O2 Saturation ABG Base Excess ABG Hemoglobin ABG Oxyhemoglobin ABG Sodium ABG Potassium ABG Chloride ABG Glucose VBG pH Oxyhemoglobin Carboxyhemoglobin Sodium 150 H Potassium Chloride 108.3 H Carbon Dioxide 32 H BUN 57 H Creatinine 1.5 H Glucose 142 H POC Glucose 131 H 142 H Lactic Acid Calcium Phosphorus Magnesium Total Bilirubin AST ALT Ammonia Lactate Dehydrogenase Total Creatine Kinase CK-MB (CK-2) Troponin T NT-Pro-B Natriuret Pep Total Protein Albumin Triglycerides TSH Arterial Blood Glucose Arterial Blood Ionized Calcium Urine pH Urine WBC (Auto) Urine Creatinine 10/25/20 10/25/20 10/25/20 08:55 11:08 18:10 WBC 14.3 H RBC 3.57 L Hgb 10.3 L Hct 31.6 L RDW Lymph % (Auto) [place] % (Auto) Lymph # (Auto) [place] # (Auto) Seg Neutrophils % Lymphocytes % (Manual) Monocytes % (Manual) Seg Neutrophils # Seg Neutrophils # Man Lymphocytes # (Manual) Monocytes # (Manual) D-Dimer Heparin Anti-Xa Level ABG pH POC ABG pCO2 52.3 H POC ABG pO2 ABG pO2 ABG HCO3 ABG O2 Saturation ABG Base Excess ABG Hemoglobin 11.2 L ABG Oxyhemoglobin ABG Sodium ABG Potassium ABG Chloride 108.0 H ABG Glucose 167 H VBG pH Oxyhemoglobin Carboxyhemoglobin Sodium Potassium Chloride Carbon Dioxide BUN Creatinine Glucose POC Glucose 157 H Lactic Acid Calcium Phosphorus Magnesium Total Bilirubin AST ALT Ammonia Lactate Dehydrogenase Total Creatine Kinase CK-MB (CK-2) Troponin T NT-Pro-B Natriuret Pep Total Protein Albumin Triglycerides TSH Arterial Blood Glucose 167 H Arterial Blood Ionized Calcium Urine pH Urine WBC (Auto) Urine Creatinine 10/25/20 10/26/20 10/26/20 18:20 00:20 06:08 WBC RBC Hgb Hct RDW Lymph % (Auto) [place] % (Auto) Lymph # (Auto) [place] # (Auto) Seg Neutrophils % Lymphocytes % (Manual) Monocytes % (Manual) Seg Neutrophils # Seg Neutrophils # Man Lymphocytes # (Manual) Monocytes # (Manual) D-Dimer Heparin Anti-Xa Level ABG pH POC ABG pCO2 POC ABG pO2 ABG pO2 ABG HCO3 ABG O2 Saturation ABG Base Excess ABG Hemoglobin ABG Oxyhemoglobin ABG Sodium ABG Potassium ABG Chloride ABG Glucose VBG pH Oxyhemoglobin Carboxyhemoglobin Sodium Potassium Chloride Carbon Dioxide BUN Creatinine Glucose POC Glucose 127 H 108 H 119 H Lactic Acid Calcium Phosphorus Magnesium Total Bilirubin AST ALT Ammonia Lactate Dehydrogenase Total Creatine Kinase CK-MB (CK-2) Troponin T NT-Pro-B Natriuret Pep Total Protein Albumin Triglycerides TSH Arterial Blood Glucose Arterial Blood Ionized Calcium Urine pH Urine WBC (Auto) Urine Creatinine 10/26/20 10/26/20 10/26/20 07:38 07:38 11:28 WBC 13.5 H RBC 3.37 L Hgb 9.8 L Hct 30.0 L RDW Lymph % (Auto) [place] % (Auto) Lymph # (Auto) [place] # (Auto) Seg Neutrophils % Lymphocytes % (Manual) Monocytes % (Manual) Seg Neutrophils # Seg Neutrophils # Man Lymphocytes # (Manual) Monocytes # (Manual) D-Dimer Heparin Anti-Xa Level ABG pH POC ABG pCO2 POC ABG pO2 ABG pO2 ABG HCO3 ABG O2 Saturation ABG Base Excess ABG Hemoglobin ABG Oxyhemoglobin ABG Sodium ABG Potassium ABG Chloride ABG Glucose VBG pH Oxyhemoglobin Carboxyhemoglobin Sodium 149 H Potassium Chloride 107.6 H Carbon Dioxide 34 H BUN 49 H Creatinine 1.4 H Glucose 137 H POC Glucose 148 H Lactic Acid Calcium Phosphorus Magnesium Total Bilirubin AST ALT Ammonia Lactate Dehydrogenase Total Creatine Kinase CK-MB (CK-2) Troponin T NT-Pro-B Natriuret Pep Total Protein Albumin Triglycerides TSH Arterial Blood Glucose Arterial Blood Ionized Calcium Urine pH Urine WBC (Auto) Urine Creatinine 10/26/20 10/26/20 10/27/20 18:17 23:37 05:08 WBC RBC Hgb Hct RDW Lymph % (Auto) [place] % (Auto) Lymph # (Auto) [place] # (Auto) Seg Neutrophils % Lymphocytes % (Manual) Monocytes % (Manual) Seg Neutrophils # Seg Neutrophils # Man Lymphocytes # (Manual) Monocytes # (Manual) D-Dimer Heparin Anti-Xa Level ABG pH POC ABG pCO2 POC ABG pO2 ABG pO2 ABG HCO3 ABG O2 Saturation ABG Base Excess ABG Hemoglobin ABG Oxyhemoglobin ABG Sodium ABG Potassium ABG Chloride ABG Glucose VBG pH Oxyhemoglobin Carboxyhemoglobin Sodium Potassium Chloride Carbon Dioxide BUN Creatinine Glucose POC Glucose 121 H 152 H 120 H Lactic Acid Calcium Phosphorus Magnesium Total Bilirubin AST ALT Ammonia Lactate Dehydrogenase Total Creatine Kinase CK-MB (CK-2) Troponin T NT-Pro-B Natriuret Pep Total Protein Albumin Triglycerides TSH Arterial Blood Glucose Arterial Blood Ionized Calcium Urine pH Urine WBC (Auto) Urine Creatinine 10/27/20 10/27/20 10/27/20 07:30 07:30 11:59 WBC RBC 3.46 L Hgb 10.2 L Hct 30.9 L RDW Lymph % (Auto) [place] % (Auto) Lymph # (Auto) [place] # (Auto) Seg Neutrophils % Lymphocytes % (Manual) Monocytes % (Manual) Seg Neutrophils # Seg Neutrophils # Man Lymphocytes # (Manual) Monocytes # (Manual) D-Dimer Heparin Anti-Xa Level ABG pH POC ABG pCO2 POC ABG pO2 ABG pO2 ABG HCO3 ABG O2 Saturation ABG Base Excess ABG Hemoglobin ABG Oxyhemoglobin ABG Sodium ABG Potassium ABG Chloride ABG Glucose VBG pH Oxyhemoglobin Carboxyhemoglobin Sodium 146 H Potassium Chloride Carbon Dioxide 34 H BUN 45 H Creatinine Glucose 131 H POC Glucose 143 H Lactic Acid Calcium Phosphorus Magnesium Total Bilirubin AST ALT Ammonia Lactate Dehydrogenase Total Creatine Kinase CK-MB (CK-2) Troponin T NT-Pro-B Natriuret Pep Total Protein Albumin Triglycerides TSH Arterial Blood Glucose Arterial Blood Ionized Calcium Urine pH Urine WBC (Auto) Urine Creatinine 10/27/20 10/27/20 10/28/20 18:52 23:03 07:00 WBC RBC Hgb Hct RDW Lymph % (Auto) [place] % (Auto) Lymph # (Auto) [place] # (Auto) Seg Neutrophils % Lymphocytes % (Manual) Monocytes % (Manual) Seg Neutrophils # Seg Neutrophils # Man Lymphocytes # (Manual) Monocytes # (Manual) D-Dimer Heparin Anti-Xa Level ABG pH POC ABG pCO2 POC ABG pO2 ABG pO2 ABG HCO3 ABG O2 Saturation ABG Base Excess ABG Hemoglobin ABG Oxyhemoglobin ABG Sodium ABG Potassium ABG Chloride ABG Glucose VBG pH Oxyhemoglobin Carboxyhemoglobin Sodium 147 H Potassium Chloride Carbon Dioxide 35 H BUN 39 H Creatinine Glucose 133 H POC Glucose 119 H 158 H Lactic Acid Calcium Phosphorus Magnesium Total Bilirubin AST ALT Ammonia Lactate Dehydrogenase Total Creatine Kinase CK-MB (CK-2) Troponin T NT-Pro-B Natriuret Pep Total Protein Albumin Triglycerides TSH Arterial Blood Glucose Arterial Blood Ionized Calcium Urine pH Urine WBC (Auto) Urine Creatinine 10/28/20 10/28/20 10/28/20 09:00 11:47 17:15 WBC 12.5 H RBC 3.58 L Hgb 10.5 L Hct 32.1 L RDW Lymph % (Auto) Smyth % (Auto) Lymph # (Auto) Smyth # (Auto) Seg Neutrophils % Lymphocytes % (Manual) Monocytes % (Manual) Seg Neutrophils # Seg Neutrophils # Man Lymphocytes # (Manual) Monocytes # (Manual) D-Dimer Heparin Anti-Xa Level ABG pH POC ABG pCO2 POC ABG pO2 ABG pO2 ABG HCO3 ABG O2 Saturation ABG Base Excess ABG Hemoglobin ABG Oxyhemoglobin ABG Sodium ABG Potassium ABG Chloride ABG Glucose VBG pH Oxyhemoglobin Carboxyhemoglobin Sodium Potassium Chloride Carbon Dioxide BUN Creatinine Glucose POC Glucose 129 H 109 H Lactic Acid Calcium Phosphorus Magnesium Total Bilirubin AST ALT Ammonia Lactate Dehydrogenase Total Creatine Kinase CK-MB (CK-2) Troponin T NT-Pro-B Natriuret Pep Total Protein Albumin Triglycerides TSH Arterial Blood Glucose Arterial Blood Ionized Calcium Urine pH Urine WBC (Auto) Urine Creatinine 10/28/20 10/29/20 10/29/20 23:31 04:23 04:23 WBC 13.6 H RBC 3.47 L Hgb 10.5 L Hct 30.7 L RDW 15.4 H Lymph % (Auto) S[place]th % (Auto) Lymph # (Auto) S[place]th # (Auto) Seg Neutrophils % Lymphocytes % (Manual) Monocytes % (Manual) Seg Neutrophils # Seg Neutrophils # Man Lymphocytes # (Manual) Monocytes # (Manual) D-Dimer Heparin Anti-Xa Level ABG pH POC ABG pCO2 POC ABG pO2 ABG pO2 ABG HCO3 ABG O2 Saturation ABG Base Excess ABG Hemoglobin ABG Oxyhemoglobin ABG Sodium ABG Potassium ABG Chloride ABG Glucose VBG pH Oxyhemoglobin Carboxyhemoglobin Sodium Potassium Chloride Carbon Dioxide 35 H BUN 34 H Creatinine Glucose 107 H POC Glucose 138 H Lactic Acid Calcium Phosphorus Magnesium Total Bilirubin AST ALT Ammonia Lactate Dehydrogenase Total Creatine Kinase CK-MB (CK-2) Troponin T NT-Pro-B Natriuret Pep Total Protein Albumin Triglycerides TSH Arterial Blood Glucose Arterial Blood Ionized Calcium Urine pH Urine WBC (Auto) Urine Creatinine 10/29/20 10/29/20 10/29/20 05:21 11:49 23:19 WBC RBC Hgb Hct RDW Lymph % (Auto) S[place]th % (Auto) Lymph # (Auto) [place]th # (Auto) Seg Neutrophils % Lymphocytes % (Manual) Monocytes % (Manual) Seg Neutrophils # Seg Neutrophils # Man Lymphocytes # (Manual) Monocytes # (Manual) D-Dimer Heparin Anti-Xa Level ABG pH POC ABG pCO2 POC ABG pO2 ABG pO2 ABG HCO3 ABG O2 Saturation ABG Base Excess ABG Hemoglobin ABG Oxyhemoglobin ABG Sodium ABG Potassium ABG Chloride ABG Glucose VBG pH Oxyhemoglobin Carboxyhemoglobin Sodium Potassium Chloride Carbon Dioxide BUN Creatinine Glucose POC Glucose 115 H 124 H 129 H Lactic Acid Calcium Phosphorus Magnesium Total Bilirubin AST ALT Ammonia Lactate Dehydrogenase Total Creatine Kinase CK-MB (CK-2) Troponin T NT-Pro-B Natriuret Pep Total Protein Albumin Triglycerides TSH Arterial Blood Glucose Arterial Blood Ionized Calcium Urine pH Urine WBC (Auto) Urine Creatinine 10/30/20 10/30/20 10/30/20 04:59 05:10 11:52 WBC RBC Hgb Hct RDW Lymph % (Auto) S[place]th % (Auto) Lymph # (Auto) [place]th # (Auto) Seg Neutrophils % Lymphocytes % (Manual) Monocytes % (Manual) Seg Neutrophils # Seg Neutrophils # Man Lymphocytes # (Manual) Monocytes # (Manual) D-Dimer Heparin Anti-Xa Level ABG pH POC ABG pCO2 POC ABG pO2 ABG pO2 ABG HCO3 ABG O2 Saturation ABG Base Excess ABG Hemoglobin ABG Oxyhemoglobin ABG Sodium ABG Potassium ABG Chloride ABG Glucose VBG pH Oxyhemoglobin Carboxyhemoglobin Sodium Potassium Chloride Carbon Dioxide 34 H BUN 33 H Creatinine Glucose 128 H POC Glucose 126 H 132 H Lactic Acid Calcium Phosphorus Magnesium Total Bilirubin AST ALT Ammonia Lactate Dehydrogenase Total Creatine Kinase CK-MB (CK-2) Troponin T NT-Pro-B Natriuret Pep Total Protein Albumin Triglycerides TSH Arterial Blood Glucose Arterial Blood Ionized Calcium Urine pH Urine WBC (Auto) Urine Creatinine 10/30/20 10/30/20 10/31/20 16:59 23:19 04:00 WBC RBC Hgb Hct RDW Lymph % (Auto) [place]th % (Auto) Lymph # (Auto) [place]th # (Auto) Seg Neutrophils % Lymphocytes % (Manual) Monocytes % (Manual) Seg Neutrophils # Seg Neutrophils # Man Lymphocytes # (Manual) Monocytes # (Manual) D-Dimer Heparin Anti-Xa Level ABG pH POC ABG pCO2 POC ABG pO2 ABG pO2 ABG HCO3 ABG O2 Saturation ABG Base Excess ABG Hemoglobin ABG Oxyhemoglobin ABG Sodium ABG Potassium ABG Chloride ABG Glucose VBG pH Oxyhemoglobin Carboxyhemoglobin Sodium Potassium Chloride Carbon Dioxide 38 H BUN 32 H Creatinine Glucose 121 H POC Glucose 118 H 138 H Lactic Acid Calcium Phosphorus Magnesium Total Bilirubin AST ALT Ammonia Lactate Dehydrogenase Total Creatine Kinase CK-MB (CK-2) Troponin T NT-Pro-B Natriuret Pep Total Protein Albumin Triglycerides TSH Arterial Blood Glucose Arterial Blood Ionized Calcium Urine pH Urine WBC (Auto) Urine Creatinine 10/31/20 10/31/20 10/31/20 05:13 11:09 16:17 WBC RBC Hgb Hct RDW Lymph % (Auto) [place]th % (Auto) Lymph # (Auto) [place]th # (Auto) Seg Neutrophils % Lymphocytes % (Manual) Monocytes % (Manual) Seg Neutrophils # Seg Neutrophils # Man Lymphocytes # (Manual) Monocytes # (Manual) D-Dimer Heparin Anti-Xa Level ABG pH POC ABG pCO2 71.1 H POC ABG pO2 67.4 L ABG pO2 ABG HCO3 ABG O2 Saturation ABG Base Excess ABG Hemoglobin 10.9 L ABG Oxyhemoglobin 90.7 L ABG Sodium ABG Potassium ABG Chloride ABG Glucose 134 H VBG pH Oxyhemoglobin Carboxyhemoglobin Sodium Potassium Chloride Carbon Dioxide BUN Creatinine Glucose POC Glucose 110 H 138 H Lactic Acid Calcium Phosphorus Magnesium Total Bilirubin AST ALT Ammonia Lactate Dehydrogenase Total Creatine Kinase CK-MB (CK-2) Troponin T NT-Pro-B Natriuret Pep Total Protein Albumin Triglycerides TSH Arterial Blood Glucose 134 H Arterial Blood Ionized Calcium Urine pH Urine WBC (Auto) Urine Creatinine 10/31/20 10/31/20 11/01/20 18:16 23:56 04:09 WBC 11.3 H RBC 3.05 L Hgb 9.0 L Hct 27.3 L RDW Lymph % (Auto) [place]th % (Auto) Lymph # (Auto) [place]th # (Auto) Seg Neutrophils % Lymphocytes % (Manual) Monocytes % (Manual) Seg Neutrophils # Seg Neutrophils # Man Lymphocytes # (Manual) Monocytes # (Manual) D-Dimer Heparin Anti-Xa Level ABG pH POC ABG pCO2 POC ABG pO2 ABG pO2 ABG HCO3 ABG O2 Saturation ABG Base Excess ABG Hemoglobin ABG Oxyhemoglobin ABG Sodium ABG Potassium ABG Chloride ABG Glucose VBG pH Oxyhemoglobin Carboxyhemoglobin Sodium Potassium Chloride Carbon Dioxide BUN Creatinine Glucose POC Glucose 135 H 122 H Lactic Acid Calcium Phosphorus Magnesium Total Bilirubin AST ALT Ammonia Lactate Dehydrogenase Total Creatine Kinase CK-MB (CK-2) Troponin T NT-Pro-B Natriuret Pep Total Protein Albumin Triglycerides TSH Arterial Blood Glucose Arterial Blood Ionized Calcium Urine pH Urine WBC (Auto) Urine Creatinine 11/01/20 11/01/20 05:10 11:51 WBC RBC Hgb Hct RDW Lymph % (Auto) [place]th % (Auto) Lymph # (Auto) [place]th # (Auto) Seg Neutrophils % Lymphocytes % (Manual) Monocytes % (Manual) Seg Neutrophils # Seg Neutrophils # Man Lymphocytes # (Manual) Monocytes # (Manual) D-Dimer Heparin Anti-Xa Level ABG pH POC ABG pCO2 POC ABG pO2 ABG pO2 ABG HCO3 ABG O2 Saturation ABG Base Excess ABG Hemoglobin ABG Oxyhemoglobin ABG Sodium ABG Potassium ABG Chloride ABG Glucose VBG pH Oxyhemoglobin Carboxyhemoglobin Sodium Potassium Chloride Carbon Dioxide BUN Creatinine Glucose POC Glucose 123 H 123 H Lactic Acid Calcium Phosphorus Magnesium Total Bilirubin AST ALT Ammonia Lactate Dehydrogenase Total Creatine Kinase CK-MB (CK-2) Troponin T NT-Pro-B Natriuret Pep Total Protein Albumin Triglycerides TSH Arterial Blood Glucose Arterial Blood Ionized Calcium Urine pH Urine WBC (Auto) Urine Creatinine Chest x-ray: image reviewed (mild interstitial edema) Allied health notes reviewed: nursing
[2020-11-01] MEDS ORDERED: FUROSEMIDE 20 MG/2 ML INJ IV SCH (14:00)
--- NOTE | 2020-11-01 15:56 | Progress Note ---
<JOIJOI DamicoSee - Last Filed: 11/01/20 16:00> Assessment and Plan Assessment and plan: This is a 55-year-old male with hypertension, asthma, obesity who was admitted on 10/10 after cardiac arrest x2 (supposedly after COVID-19 vaccine injection), sepsis, right-sided pneumonia, NSTEMI type II, acute heart failure, acute hypoxic respiratory failure, acute kidney injury and anoxic brain injury. Sepsis s/p multiple Cardiac Arrests Right-sided pneumonia MRSA in tracheal aspirate NSTEMI type II Acute heart failure Afib/Alutter Leukocytosis Acute hypoxic respiratory failure Acute kidney injury (improved) Transaminitis HTN Obesity -Infectious disease, CCM, GI, nephrology, cardiology, surgery consulted, appreciate recommendations -Antibiotic therapy -10/18 recultured (blood/sputum/nasal discharge and urinalysis), tracheal aspirate with MRSA -S/p Linezolid -Continue antihypertensive regimen (changed to p.o.), titrate as needed -s/p IV amiodarone for A. fib/a flutter now on p.o. beta-shital -Trend CBC, BMP, LFT -trach/peg 10/27 -On T piece now -Avoid nephrotoxic medications, strict intake and output, renal ultrasound shows no obstruction -10/10 echocardiogram shows left internal systolic function normal, moderate concentric left ventricle hypertrophy, mild to side diastolic dysfunction, LVEF 55 to 60% with no pericardial effusion -Bilateral Doppler ultrasound negative for DVT/SVT which shows bilateral poplite al cysts -MRI Brain shows restricted diffusion and increased T2 signal cerebral cortex which can be seen in the setting of anoxic brain injury and/ or status epilepticus. -Repeat EEG shows significant generalized slowing compatible with to moderate severe diffuse neuropathy recently compatible with anoxic/ischemic encephalopathy -s/p D5W at 50ml/hr x 1 liter, currently on tube feedings and tolerating GI/DVT prophylaxis: SCDs to bilateral lower extremities while in bed, PPI, Heparin subq Dispo: ICU/ possible LTACH The high probability of a clinically significant, sudden or life threatening deterioration of the [multi] system(s) required my full and direct attention, intervention and personal management. The aggregate critical care time was [35] minutes. This time is in addition to time spent performing reported procedures but includes the following: [x] Data Review and interpretation [x] Patient assessment and monitoring of vital signs [x] Documentation [x] Medication orders and management History Interval history: This is a 55-year-old male with hypertension, asthma, obesity in the emergency by presented to the emergency department on 10/10 after receiving a Covid vaccine being found unresponsive in his car in the emergency room bay with no pulse and ACLS protocol was initiated from his car to emergency room #21 where it was continued. Patient was intubated after ROSC was achieved and a central line was placed and the patient was initiated on pressors. In the emergency room patient seems to have seizure-like activity and then collapsed and was unresponsive with no palpable pulse and ACLS was again initiated patient with achievement of ROSC. Patient again coded with ACLS protocol in the CT room. Upon arrival to the ICU patient again coded and ROSC was achieved and he was placed on epinephrine, Lasix, heparin and sodium bicarbonate drip and sedated with propofol. An NG tube was placed, A-line was placed. Patient was admitted to the hospitalist service with consult to [facility], nephrology, infectious disease and cardiology. 10/11: Patient COVID-19 PCR is pending and he remains on mechanical ventilation, examination on assist control 400/30/12/0.95. Patient is scheduled for an echocardiogram and we will obtain bilateral lower extremity Doppler ultrasound given elevated D-dimer. Patient was supposed to have a CTA chest when he coded yesterday. We will begin trickle feeding. This morning patient was on a heparin drip and was noted to have bloody drainage from his NG tube. Heparin drip was discontinued. 10/12: Patient remains on propofol and Lasix drip at the time my examination and he is on assist control 400/25/12/0.60. Patient is hypokalemic this morning which was repleted. Nephrology discontinued Lasix drip and Diamox. Patient is hypertensive and has been started on hydralazine and beta-shital IV. He has been titrated off his vasopressors since yesterday. Vancomycin discontinued. Patient is currently on cefepime and azithromycin. 10/13: Sedation vacation attempted today and patient was not responsive to verbal or painful stimuli, does not track or focus or follow commands. This morning the patient has some respiratory alkalosis on ABG, hypernatremia and metabolic alkalosis on BMP. His kidney functions has improved slightly. Patient still has leukocytosis and infectious disease was like to continue antibiotic therapy. GI evaluated the patient yesterday and started the patient on PPI does not plan to scope at this time. At the time my examination patient assist-control 4 00/20/12/0.40 and sedated on propofol at 20. 4/2: GI has recommended a CT abdomen since there is increased output from OG tube and an MRI brain without contrast has been ordered per neurology recomme ndations. EEG is pending and the patient has been started on Keppra per neurology.. Nutrition has been consulted for initiation of parenteral nutrition. Patient remains sedated with propofol and his hypernatremia, leukocytosis, acute kidney injury and metabolic alkalosis is improving. Patient has hypokalemia today which was repleted. At the time of my examination patient was on assist control 400/14/10/0.40 and CCM has dropped his rate to 12 and PEEP to 8. We have labs ordered for a.m. He was given a clonidine patch given persistent hypertension and he remains on D5 water per nephrology. 3: This morning patient was started to have a low-grade fever and he will continue antibiotic therapy per infectious disease. He will remove Tuttle catheter today and place a condom cath. Patient's renal function is worsening with a BUN/creatinine of 57/2.4 today and he has hyperphosphatemia at 5.2. This morning the time my examination patient is sedated on fentanyl and has TPN infusing. He is on assist control 400/12/8/0.35. Per GI we will start trial of tube feedings initiation has been reconsulted for orders. 10/18: Patient was febrile overnight and infectious disease has recultured (blood/sputum/right nostril culture) and sent in urinalysis. Cefepime was extended due to high fever and was started on vancomycin. Tube feeding is at goal and we will discontinue his parenteral nutrition. Patient is unable to obtain his MRI due to increased hypoxia and nasal secretions. He will be started on CPAP trials today. This time I examination patient was sedated on fentanyl and had PPN running at 42. His renal function tests have worsened and now has hyperchloremia. Hypernatremia has resolved. 10/19: Patient's T-max was 100.2 and he was pancultured yesterday, remains on antibiotic therapy and still has copious drainage from his nostrils. Patient still has leukocytosis however his/creatinine improved slightly to 3.1 from 3.3. Patient's urinalysis from yesterday shows pyuria. Patient's tracheal aspirate from yesterday grew Staph aureus. Patient is on cefepime and vancomycin. 10/20: This morning at the time my examination patient was CPAP trial of 10/6 and his T-max was 100.9. Patient sedated on fentanyl at 2 just received IV push fentanyl for tachycardia. Today his creatinine is 2.8 from 3.1 yesterday. Infectious disease has stopped cefepime and vancomycin and started linezolid and MRSA PCR is pending. Today removed his NG tube and replaced it with OG tube. We will keep the patient normal saline at 75 mL's per hour for 3 L. Patient developed A. fib/a flutter overnight and cardiology has increased his Lopressor and IV amiodarone. We requested neurology evaluation today. 10/21: Cardiology we will increase Lopressor to 3 times daily and discontinue his amiodarone drip. Infectious disease would like a sinus CT when feasible however patient did have a moment of desatting earlier this week when we attempted MRI brain. And again yesterday when we attempted a "trial run" with positioning at bedside Patient is on linezolid for 10 days per ID. 10/22/20; patient was seen and evaluated this morning, patient had low-grade fever overnight. Patient is on Lopressor per cardiology recommendation. Patient did not follow commands, no improvement in mental status. Evaluated by neurology yesterday and neurology once MRI or CAT scan but [place] be done [place] use patient desats when he lies flat. Patient is on linezolid per ID recommendation. Continue NG tube feeding. Continue with Keppra. Patient is on assist control with PEEP of 6. Management plan was discussed with his yesterday. 10/23/2020; patient is on Zyvox for positive MRSA from tracheal aspirate and nasal secretion culture. Patient's mentation did not improve and does not follow commands. He was reevaluated by neurology and recommend MRI once patient is able to tolerate. MRI could not be done, CT scan could not be done because the patient could not lie flat. Clinically patient looks like she has anoxic encephalopathy. Patient is on NG tube feeding and on mechanical ventilation. Patient is on Keppra. Management plan was discussed with his . 10/24: This morning the patient is on AC TV 400,R 16, Peep 6 and FiO2 of 30% and sedated on 1mcg of Fentayl. He is hypernatremic and his kidney function tests have slightly improved. RN will attempt to obtain MRI Brain today since the patient was able to tolerate a "trial run" of being flat. [facility] plans to resume CPAP trials once MRI obtained. 10/25: This morning the time of examination patient was on assist control tidal volume 400, rate 16, PEEP 6, FiO2 30% and he is currently on CPAP. His MRI brain finding is consistent with status epilepticus or anoxic brain injury. Patient is EEG pending. No acute overnight events reported. 10/26: Patient has been on a CPAP trial 14/6 which she has been tolerating. Surgery was consulted for trach/PEG. Patient's hypernatremia and hyperchloremia slightly better as well as his kidney functions. He has received cardiac clearance for his trach and PEG. No acute events reported overnight. 10/27: At the time my examination patient was on CPAP trial 15/6 and 30% FiO2. Patient's electrolyte abnormalities were improving and sources kidney function. His T-max overnight was 99.3 and he remains on linezolid. No acute events reported overnight. 10/28: Yesterday patient had a trach and PEG placed. Patient remains n.p.o. as he has not been cleared by surgery to resume p.o. intake. Today he has slight leukocytosis which is likely reactive, hyponatremia, metabolic alkalosis however his kidney function continues to improve. No acute events overnight. 10/29: Plan to start tube feeding today, patient remains on mechanical ventilation with trach tube. Remains comatose without any change in mental status. Called and updated. 10/30: Vitals stable, patient remains on trach tube with ventilator. Tolerating tube feeding, otherwise clinically unchanged. Continue to provide supportive care and wean off from vent as tolerated. 10/31: No acute events reported overnight. Patient is CPAP at the time my examination however he will be tried on trach collar and we will obtain an ABG within 2 hours. 11/01. Patient is on a trach collar at 35% FiO2, he was reported, patient received Lasix and will obtain an ABG at 2100. dr. Jojo updated his and his mother is at bedside visiting him. Hospitalist Physical - Constitutional Vitals: Temp Pulse Resp BP Pulse Ox 99.2 F 80 16 143/71 100 11/01/20 12:00 11/01/20 12:33 11/01/20 10:00 11/01/20 12:33 11/01/20 15:21 General appearance: Present: no acute distress, well-nourished, other (opens eyes spontaneously, does not focus or track) - EENT Eyes: Present: PERRL, conjunctival injection ENT: poor dentition, other (tongue with tear) - Respiratory Respiratory effort: normal Respiratory: bilateral: diminished - Cardiovascular Rhythm: regular Heart Sounds: Present: S1 & S2. Absent: systolic murmur, diastolic murmur - Extremities Extremities: no ischemia, pulses intact, pulses symmetrical, normal temperature, normal color Peripheral Pulses: within normal limits - Abdominal General gastrointestinal: soft, non-tender, non-distended, normal bowel sounds - Integumentary Integumentary: Present: warm, dry - Psychiatric Psychiatric: other (does not FC, track or focus) - Neurologic Neurologic: other (does not FC, track or focus, opend eyes spontaneously) HEART Score - HEART Score EKG: Non-specific Age: 45-65 Troponin: Troponin T 0.125 ng/mL (0.00-0.029) H* D 10/12/20 04:00 Troponin: 1-3x normal limit - Critical Actions Critical Actions: 4-6 pts:12-16.6% risk of adverse cardiac event. Should be admitted Results - Labs CBC & Chem 7: 11/01/20 04:09 10/31/20 04:00 Labs: Laboratory Last Values WBC 11.3 K/mm3 (4.5-11.0) H 11/01/20 04:09 RBC 3.05 M/mm3 (3.65-5.03) L 11/01/20 04:09 Hgb 9.0 gm/dl (11.8-15.2) L 11/01/20 04:09 Hct 27.3 % (35.5-45.6) L 11/01/20 04:09 MCV 90 fl (84-94) 11/01/20 04:09 MCH 29 pg (28-32) 11/01/20 04:09 MCHC 33 % (32-34) 11/01/20 04:09 RDW 14.7 % (13.2-15.2) 11/01/20 04:09 Plt Count 217 K/mm3 (140-440) 11/01/20 04:09 Lymph % (Auto) 4.2 % (13.4-35.0) L 10/19/20 04:55 [place] % (Auto) 11.9 % (0.0-7.3) H 10/19/20 04:55 Eos % (Auto) 1.6 % (0.0-4.3) 10/19/20 04:55 Baso % (Auto) 0.3 % (0.0-1.8) 10/19/20 04:55 Lymph # (Auto) 0.6 K/mm3 (1.2-5.4) L 10/19/20 04:55 [place] # (Auto) 1.8 K/mm3 (0.0-0.8) H 10/19/20 04:55 Eos # (Auto) 0.2 K/mm3 (0.0-0.4) 10/19/20 04:55 Baso # (Auto) 0.1 K/mm3 (0.0-0.1) 10/19/20 04:55 Add Manual Diff Complete 10/10/20 18:18 Total Counted 100 10/10/20 18:18 Seg Neutrophils % 82.0 % (40.0-70.0) H 10/19/20 04:55 Seg Neuts % (Manual) 60.0 % (40.0-70.0) 10/10/20 18:18 Band Neutrophils % 27.0 % 10/10/20 18:18 Lymphocytes % (Manual) 4.0 % (13.4-35.0) L 10/10/20 18:18 Monocytes % (Manual) 9.0 % (0.0-7.3) H 10/10/20 18:18 Eosinophils % (Manual) 4.0 % (0.0-4.3) 10/10/20 10:48 Metamyelocytes % 1.0 % 10/10/20 10:48 Nucleated RBC % Not Reportable 10/10/20 18:18 Seg Neutrophils # 12.4 K/mm3 (1.8-7.7) H 10/19/20 04:55 Seg Neutrophils # Man 13.8 K/mm3 (1.8-7.7) H 10/10/20 18:18 Band Neutrophils # 6.2 K/mm3 10/10/20 18:18 Lymphocytes # (Manual) 0.9 K/mm3 (1.2-5.4) L 10/10/20 18:18 Abs React Lymphs (Man) 0.0 K/mm3 10/10/20 18:18 Monocytes # (Manual) 2.1 K/mm3 (0.0-0.8) H 10/10/20 18:18 Eosinophils # (Manual) 0.0 K/mm3 (0.0-0.4) 10/10/20 18:18 Basophils # (Manual) 0.0 K/mm3 (0.0-0.1) 10/10/20 18:18 Metamyelocytes # 0.0 K/mm3 10/10/20 18:18 Myelocytes # 0.0 K/mm3 10/10/20 18:18 Promyelocytes # 0.0 K/mm3 10/10/20 18:18 Blast Cells # 0.0 K/mm3 10/10/20 18:18 WBC Morphology Not Reportable 10/10/20 18:18 Hypersegmented Neuts Not Reportable 10/10/20 18:18 Hyposegmented Neuts Not Reportable 10/10/20 18:18 Hypogranular Neuts Not Reportable 10/10/20 18:18 Smudge Cells Not Reportable 10/10/20 18:18 Toxic Granulation Not Reportable 10/10/20 18:18 Toxic Vacuolation Not Reportable 10/10/20 18:18 Dohle Bodies Not Reportable 10/10/20 18:18 Pelger-Huet Anomaly Not Reportable 10/10/20 18:18 Dionicio Rods Not Reportable 10/10/20 18:18 Platelet Estimate Consistent w auto 10/10/20 18:18 Clumped Platelets Not Reportable 10/10/20 18:18 Plt Clumps, EDTA Not Reportable 10/10/20 18:18 Large Platelets Rare 10/10/20 18:18 Giant Platelets Rare 10/10/20 18:18 Platelet Satelliting Not Reportable 10/10/20 18:18 Plt Morphology Comment Not Reportable 10/10/20 18:18 RBC Morphology Not Reportable 10/10/20 18:18 Dimorphic RBCs Not Reportable 10/10/20 18:18 Polychromasia Not Reportable 10/10/20 18:18 Hypochromasia Not Reportable 10/10/20 18:18 Poikilocytosis Not Reportable 10/10/20 18:18 Anisocytosis Not Reportable 10/10/20 18:18 Microcytosis Not Reportable 10/10/20 18:18 Macrocytosis Not Reportable 10/10/20 18:18 Spherocytes Not Reportable 10/10/20 18:18 Pappenheimer Bodies Not Reportable 10/10/20 18:18 Sickle Cells Not Reportable 10/10/20 18:18 Target Cells Not Reportable 10/10/20 18:18 Tear Drop Cells Not Reportable 10/10/20 18:18 Ovalocytes Not Reportable 10/10/20 18:18 Helmet Cells Not Reportable 10/10/20 18:18 Medley-Garwood Bodies Not Reportable 10/10/20 18:18 [place] Rings Not Reportable 10/10/20 18:18 [place] Cells Not Reportable 10/10/20 18:18 Bite Cells Not Reportable 10/10/20 18:18 Crenated Cell Not Reportable 10/10/20 18:18 Elliptocytes Not Reportable 10/10/20 18:18 Acanthocytes (Spur) Not Reportable 10/10/20 18:18 Rouleaux Not Reportable 10/10/20 18:18 Hemoglobin C Crystals Not Reportable 10/10/20 18:18 Schistocytes Not Reportable 10/10/20 18:18 Malaria parasites Not Reportable 10/10/20 18:18 Mauricio Bodies Not Reportable 10/10/20 18:18 Hem Pathologist Commnt No 10/10/20 18:18 PT 13.5 Sec. (12.2-14.9) 10/28/20 07:00 INR 1.05 (0.87-1.13) 10/28/20 07:00 APTT 26.9 Sec. (24.2-36.6) 10/10/20 18:18 D-Dimer 679.5 ng/mlDDU (0-234) H 10/10/20 10:48 Heparin Anti-Xa Level 0.22 U.I./ml (0.3-0.7) L 10/11/20 08:35 ABG pH 7.329 (7.320-7.450) 10/31/20 16:17 POC ABG pCO2 71.1 mmHg (32.0-48.0) H 10/31/20 16:17 ABG pCO2 55.5 mm Hg 10/16/20 05:10 POC ABG pO2 67.4 mmHg (83-108) L 10/31/20 16:17 ABG pO2 104.5 mm Hg (80.0-90.0) H 10/16/20 05:10 POC ABG HCO3 36.6 10/31/20 16:17 ABG HCO3 35.1 mmol/L (20.0-26.0) H 10/16/20 05:10 ABG O2 Saturation 91.9 (0-100) 10/31/20 16:17 ABG O2 Content 10.8 (0.0-44) 10/16/20 05:10 POC ABG Base Excess 8.6 10/31/20 16:17 ABG Base Excess 9.5 mmol/L (-2.0-3.0) H 10/16/20 05:10 ABG Hemoglobin 10.9 (12.0-17.5) L 10/31/20 16:17 ABG Oxyhemoglobin 90.7 (94-98) L 10/31/20 16:17 ABG Carboxyhemoglobin 1.9 % (0.0-5.0) 10/16/20 05:10 ABG Methemoglobin 0.3 (0.0-1.5) 10/31/20 16:17 ABG Sodium 140.1 mmol/L (136.0-145.0) 10/31/20 16:17 ABG Potassium 4.3 mmol/L (3.40-4.50) 10/31/20 16:17 ABG Chloride 102.0 mmol/L (98-107) 10/31/20 16:17 ABG Glucose 134 mg/dL (65-95) H 10/31/20 16:17 VBG pH 6.870 (7.320-7.420) L* 10/10/20 10:48 Oxyhemoglobin 95.3 % (95.0-99.0) 10/16/20 05:10 Carboxyhemoglobin 1.0 (0.5-1.5) 10/31/20 16:17 FiO2 35 % 10/16/20 05:10 FiO2 % 35 10/31/20 16:17 Sodium 144 mmol/L (137-145) 10/31/20 04:00 Potassium 4.0 mmol/L (3.6-5.0) 10/31/20 04:00 Chloride 102.9 mmol/L (98-107) 10/31/20 04:00 Carbon Dioxide 38 mmol/L (22-30) H 10/31/20 04:00 Anion Gap 7 mmol/L 10/31/20 04:00 BUN 32 mg/dL (9-20) H 10/31/20 04:00 Creatinine 1.2 mg/dL (0.8-1.3) 10/31/20 04:00 Estimated GFR > 60 ml/min 10/31/20 04:00 BUN/Creatinine Ratio 27 % 10/31/20 04:00 Glucose 121 mg/dL (75-100) H 10/31/20 04:00 POC Glucose 123 mg/dL (70-105) H 11/01/20 11:51 Hemoglobin A1c 6.0 % (4-6) 10/11/20 02:00 Lactic Acid 1.10 mmol/L (0.7-2.0) 10/13/20 04:52 Calcium 8.6 mg/dL (8.4-10.2) 10/31/20 04:00 Phosphorus 5.20 mg/dL (2.5-4.5) H D 10/17/20 03:32 Magnesium 2.30 mg/dL (1.7-2.3) 10/17/20 03:32 Ferritin 81.4 ng/mL (30.0-300.0) 10/10/20 10:48 Total Bilirubin 1.70 mg/dL (0.1-1.2) H 10/18/20 03:27 AST 37 units/L (5-40) 10/18/20 03:27 ALT 32 units/L (7-56) 10/18/20 03:27 Alkaline Phosphatase 97 units/L (35-129) 10/18/20 03:27 Ammonia 214.0 umol/L (25-60) H 10/10/20 10:46 Lactate Dehydrogenase 386 units/L (91-180) H 10/10/20 10:48 Total Creatine Kinase 1192 units/L (55-170) H 10/10/20 18:18 CK-MB (CK-2) 21.7 ng/mL (0.0-4.0) H 10/10/20 18:18 CK-MB (CK-2) Rel Index 1.8 (0-4) 10/10/20 18:18 Troponin T 0.125 ng/mL (0.00-0.029) H* D 10/12/20 04:00 C-Reactive Protein 0.90 mg/dL (0.00-1.30) 10/10/20 10:48 NT-Pro-B Natriuret Pep 1187 pg/mL (0-900) H 10/10/20 10:46 Total Protein 6.3 g/dL (6.3-8.2) 10/18/20 03:27 Albumin 3.1 g/dL (3.9-5) L 10/18/20 03:27 Albumin/Globulin Ratio 1.0 % 10/18/20 03:27 Triglycerides 278 mg/dL (2-149) H 10/13/20 04:52 Cholesterol 138 mg/dL (50-199) 10/10/20 18:18 LDL Cholesterol Direct 76 mg/dL (50-130) 10/10/20 18:18 HDL Cholesterol 49 mg/dL (40-59) 10/10/20 18:18 Cholesterol/HDL Ratio 2.81 % 10/10/20 18:18 Procalcitonin 4.98 ng/mL (<0.15) 10/15/20 04:12 TSH 6.260 mlU/mL (0.270-4.200) H 10/10/20 10:46 Arterial Blood Glucose 134 mg/dL (65-95) H 10/31/20 16:17 Arterial Blood Ionized Calcium 4.7 mg/dL (4.6-5.3) 10/31/20 16:17 Urine Color Angelica (Yellow) 10/18/20 Unknown Urine Turbidity Cloudy (Clear) 10/18/20 Unknown Urine pH 5.0 (5.0-7.0) 10/18/20 Unknown Ur Specific [place] 1.017 (1.003-1.030) 10/18/20 Unknown Urine Protein 100 mg/dl mg/dL (Negative) 10/18/20 Unknown Urine Glucose (UA) Neg mg/dL (Negative) 10/18/20 Unknown Urine Ketones Neg mg/dL (Negative) 10/18/20 Unknown Urine Blood Lg (Negative) 10/18/20 Unknown Urine Nitrite Neg (Negative) 10/18/20 Unknown Urine Bilirubin Neg (Negative) 10/18/20 Unknown Urine Urobilinogen 4.0 mg/dL (<2.0) 10/18/20 Unknown Ur Leukocyte Esterase Neg (Negative) 10/18/20 Unknown Urine WBC (Auto) 115.0 /HPF (0.0-6.0) H 10/18/20 Unknown Urine RBC (Auto) 98.0 /HPF (0.0-6.0) 10/18/20 Unknown U Epithel Cells (Auto) 2.0 /HPF (0-13.0) 10/18/20 Unknown Urine WBC Clumps 3+ /HPF 10/18/20 Unknown Urine Mucus Few /HPF 10/11/20 13:30 Urine Eosinophils None seen (None Seen) 10/11/20 13:30 Urine Creatinine 93.7 mg/dL (0.1-20.0) H 10/19/20 13:14 Urine Sodium 25 mmol/L 10/19/20 13:14 Urine Urea Nitrogen 845 10/19/20 13:14 Nasal Screen MRSA (PCR) Positive (Negative) 10/20/20 13:30 Random Vancomycin 5.8 ug/mL (0-40.0) 10/21/20 06:30 Urine Opiates Screen Negative 10/10/20 10:50 Urine Methadone Screen Negative 10/10/20 10:50 Ur Barbiturates Screen Negative 10/10/20 10:50 Ur Phencyclidine Scrn Negative 10/10/20 10:50 Ur Amphetamines Screen Negative 10/10/20 10:50 U Benzodiazepines Scrn Negative 10/10/20 10:50 Urine Cocaine Screen Negative 10/10/20 10:50 U Marijuana (THC) Screen Positive 10/10/20 10:50 Drugs of Abuse Note Disclamer 10/10/20 10:50 Plasma/Serum Alcohol < 0.01 % (0-0.07) 10/10/20 10:48 Coronavirus (PCR) Negative (Negative) 10/11/20 Unknown Blood Type AB POSITIVE 10/10/20 10:48 Antibody Screen Negative 10/10/20 10:48 Microbiology: Microbiology 10/20/20 12:35 Nose - Right Eye/Ear/Nose/Throat Culture - Final Methicillin Resist S. Aureus Tuttle/IV: Voiding Method Incontinent Active Medications - Current Medications Current Medications: Generic Name Dose Route Start Last Admin Trade Name Freq PRN Reason Stop Dose Admin Acetaminophen 650 mg 10/10/20 21:51 10/20/20 09:11 Acetaminophen 325 Mg Tab PO 650 mg Q4H PRN Administration Pain MILD(1-3)/Fever >100.5/SALVADOR Acetaminophen 650 mg 10/11/20 11:24 10/17/20 17:16 Acetaminophen 650 Mg Rect Supp [place] 650 mg Q6H PRN Administration Fever >101 Albuterol 2.5 mg 10/11/20 13:12 Albuterol 2.5 Mg/3 Ml Nebu IH Q6HRT PRN Shortness Of Breath Amlodipine Besylate 10 mg 10/25/20 13:00 11/01/20 09:40 Amlodipine 10 Mg Tab PO 10 mg QDAY PEPITO Administration Lipase/Protease/Amylase 1 each 10/10/20 22:18 Lipase 10,500/Protease 25,000/Amylase 43,750 (Units) Dr Santana FEEDTUBE PRN PRN For Clogged Feeding Tube Clonidine HCl 0.3 mg 10/14/20 15:00 10/28/20 14:58 Clonidine Tts 0.3 Mg/24 Hr Patch TD 0.3 mg Fr PEPITO Administration Docusate Sodium 100 mg 10/16/20 22:00 11/01/20 09:40 Docusate Sodium 100 Mg/10 Ml Oral Liqd PO 100 mg BID PEPITO Administration Fentanyl 25 mcg 10/31/20 13:00 11/01/20 14:28 Fentanyl 100 Mcg/2 Ml Inj IV 25 mcg Q2H PRN Administration ANALGESIA Fentanyl 25 mcg 10/31/20 14:00 10/31/20 17:16 Fentanyl 25 Mcg/Hr Patch 72hr TD Not Given Q3D PEPITO Furosemide 20 mg 11/01/20 14:00 11/01/20 14:28 Furosemide 20 Mg/2 Ml Inj IV 20 mg ONCE PEPITO Administration Glycopyrrolate 2 mg 10/31/20 09:30 11/01/20 12:32 Glycopyrrolate 2 Mg Tab PO 2 mg Q6HR PEPITO Administration Heparin Sodium (Porcine) 5,000 unit 10/11/20 22:00 11/01/20 09:42 Heparin 5,000 Unit/1 Ml Vial SUB-Q 5,000 unit Q12HR PEPITO Administration Hydralazine HCl 5 mg 10/15/20 20:25 10/30/20 01:13 Hydralazine 20 Mg/1 Ml Inj IV 5 mg Q6H PRN Administration Hypertension Hydralazine HCl 100 mg 10/24/20 09:30 11/01/20 12:33 Hydralazine 25 Mg Tab PO 100 mg Q8HR [facility] Administration Hydrophilic Ointment 1 applic 10/10/20 10:34 Lip Therapy Vaseline TP Q2HR PRN Dry Lips Lansoprazole 30 mg 10/24/20 10:00 11/01/20 09:40 Lansoprazole 30 Mg Solutab FEEDTUBE 30 mg BID [facility] Administration Levetiracetam 500 mg 10/31/20 10:00 11/01/20 09:41 Levetiracetam 500 Mg/5 Ml Oral Liqd PO 500 mg BID [facility] Administration Metoclopramide HCl 10 mg 10/10/20 21:51 Metoclopramide 10 Mg/2 Ml Inj IV Q6H PRN Nausea And Vomiting Metoprolol Tartrate 100 mg 10/21/20 14:00 11/01/20 12:33 Metoprolol Tartrate 50 Mg Tab PO 100 mg TID [facility] Administration Multi-Ingred Cream/Lotion/Oil/Oint 1 applic 10/10/20 10:34 Mineral Oil/Petrolatum, White Ophth Oint 3.5 Gm OU Q4HR PRN Dry Eye(s) Ondansetron HCl 4 mg 10/10/20 21:51 10/31/20 21:13 Ondansetron 4 Mg/2 Ml Inj IV 4 mg Q3H PRN Administration Nausea And Vomiting Polyethylene Glycol 17 gm 10/17/20 10:00 11/01/20 09:41 Polyethylene Glycol 3350 17 Gm Powder PO 17 gm QDAY [facility] Administration Quetiapine Fumarate 100 mg 11/02/20 10:00 Quetiapine 100 Mg Tab PO DAILY [facility] Quetiapine Fumarate 150 mg 11/01/20 22:00 Quetiapine 100 Mg Tab PO QHS [facility] Scopolamine 1 each 10/17/20 10:00 11/01/20 09:42 Scopolamine Transdermal Patch 72 Hr TD 1 each Q3D [facility] Administration Simple Syrup 15 ml 10/10/20 22:18 Simple Syrup 15 Ml FEEDTUBE PRN PRN Hypoglycemia Simple Syrup 30 ml 10/10/20 22:18 Simple Syrup 15 Ml FEEDTUBE PRN PRN Hypoglycemia Sodium Bicarbonate 325 mg 10/10/20 22:18 Sodium Bicarbonate 325 Mg Tab FEEDTUBE PRN PRN For Clogged Feeding Tube Sodium Chloride 10 ml 10/10/20 22:00 11/01/20 10:05 Sodium Chloride 0.9% 10 Ml Flush Syringe IV 10 ml BID [facility] Administration Sodium Chloride 10 ml 10/10/20 21:51 10/21/20 09:56 Sodium Chloride 0.9% 10 Ml Flush Syringe IV 10 ml PRN PRN Administration LINE FLUSH Nutrition/Malnutrition Assess - Dietary Evaluation Nutrition/Malnutrition Findings: Nutrition Notes Start: 10/11/20 08:38 Freq: Status: Active Protocol: Document 10/31/20 11:54 (Rec: 10/31/20 11:57 [id number]) Nutrition Notes Initial or Follow up Reassessment Current Diagnosis Acute Kidney Injury,Sepsis, Hypertension,Heart Failure, Respiratory Failure Other Pertinent Diagnosis GIB, pneu, MRSA [place], pulmonary edema Current Diet Prmote at 80 ml/hr Labs/Tests BUN 32 Pertinent Medications Reviewed Height 6 ft Weight 126.4 kg [place] Body Weight (kg) 80.90 BMI 37.8 Weight Status Morbidly Obese Subjective/Other Information FU for TF tolerance. Observed Promote running at goal rate of 80 ml/hr. Percent of energy/protein needs met: 100%/74% Burn Absent Trauma Absent Difficulty In Swallowing Current % PO Negligible Minimum of two criteria No Fluid Accumulation Mild (non-severe) #1 Nutrition Diagnosis Inadequate oral intake Diagnosis Progress(for reassessment Continues documentation) Is patient on ventilator? Yes Is Patient Ambulatory and/or Out of Bed No REE-([facility]-confined to bed) 2579.976 Kcal/Kg value to use for calculation 15 Approximate Energy Requirements Using 1896 kcal/Kg Calculation Used for Recommendations Kcal/kg Additional Notes protein needs: >162g (>2 kgIBW ) fluid needs: 1 ml/kcal or per MD Nutrition Intervention Change Diet Order: Continue Nutrition Support: Promote at 80 ml/hr with a free water flush of 200 ml q4hr for hypernatremia. Once hypernatremia resolved, resume flush of 50 ml q4h. Kcal 1,920 Protein (gm) 120 Fluid (mL) 1,611 Goal #1 Tolerate TF Goal #2 Meet at least 70% of protein and 100% of kcal needs via TF Follow-Up By: 11/02/20 Additional Comments FU for TF tolerance <DAVID TORRES - Last Filed: 11/01/20 22:57> Assessment and Plan Assessment and plan: I saw and evaluated the patient. I agree with the findings and the plan of care as documented in the Nurse Practitioner's~note, with the following corrections and additions. Spoke with patient;s by phone and updated with clinical details. Hospitalist Physical - Constitutional Vitals: Temp Pulse Resp BP Pulse Ox 99.9 F H 88 22 184/93 99 11/01/20 19:56 11/01/20 21:31 11/01/20 21:31 11/01/20 21:31 11/01/20 21:31 HEART Score - HEART Score Troponin: Troponin T 0.125 ng/mL (0.00-0.029) H* D 10/12/20 04:00 Results - Labs CBC & Chem 7: 11/01/20 04:09 10/31/20 04:00 Labs: Laboratory Last Values WBC 11.3 K/mm3 (4.5-11.0) H 11/01/20 04:09 RBC 3.05 M/mm3 (3.65-5.03) L 11/01/20 04:09 Hgb 9.0 gm/dl (11.8-15.2) L 11/01/20 04:09 Hct 27.3 % (35.5-45.6) L 11/01/20 04:09 MCV 90 fl (84-94) 11/01/20 04:09 MCH 29 pg (28-32) 11/01/20 04:09 MCHC 33 % (32-34) 11/01/20 04:09 RDW 14.7 % (13.2-15.2) 11/01/20 04:09 Plt Count 217 K/mm3 (140-440) 11/01/20 04:09 Lymph % (Auto) 4.2 % (13.4-35.0) L 10/19/20 04:55 [place] % (Auto) 11.9 % (0.0-7.3) H 10/19/20 04:55 Eos % (Auto) 1.6 % (0.0-4.3) 10/19/20 04:55 Baso % (Auto) 0.3 % (0.0-1.8) 10/19/20 04:55 Lymph # (Auto) 0.6 K/mm3 (1.2-5.4) L 10/19/20 04:55 [place] # (Auto) 1.8 K/mm3 (0.0-0.8) H 10/19/20 04:55 Eos # (Auto) 0.2 K/mm3 (0.0-0.4) 10/19/20 04:55 Baso # (Auto) 0.1 K/mm3 (0.0-0.1) 10/19/20 04:55 Add Manual Diff Complete 10/10/20 18:18 Total Counted 100 10/10/20 18:18 Seg Neutrophils % 82.0 % (40.0-70.0) H 10/19/20 04:55 Seg Neuts % (Manual) 60.0 % (40.0-70.0) 10/10/20 18:18 Band Neutrophils % 27.0 % 10/10/20 18:18 Lymphocytes % (Manual) 4.0 % (13.4-35.0) L 10/10/20 18:18 Monocytes % (Manual) 9.0 % (0.0-7.3) H 10/10/20 18:18 Eosinophils % (Manual) 4.0 % (0.0-4.3) 10/10/20 10:48 Metamyelocytes % 1.0 % 10/10/20 10:48 Nucleated RBC % Not Reportable 10/10/20 18:18 Seg Neutrophils # 12.4 K/mm3 (1.8-7.7) H 10/19/20 04:55 Seg Neutrophils # Man 13.8 K/mm3 (1.8-7.7) H 10/10/20 18:18 Band Neutrophils # 6.2 K/mm3 10/10/20 18:18 Lymphocytes # (Manual) 0.9 K/mm3 (1.2-5.4) L 10/10/20 18:18 Abs React Lymphs (Man) 0.0 K/mm3 10/10/20 18:18 Monocytes # (Manual) 2.1 K/mm3 (0.0-0.8) H 10/10/20 18:18 Eosinophils # (Manual) 0.0 K/mm3 (0.0-0.4) 10/10/20 18:18 Basophils # (Manual) 0.0 K/mm3 (0.0-0.1) 10/10/20 18:18 Metamyelocytes # 0.0 K/mm3 10/10/20 18:18 Myelocytes # 0.0 K/mm3 10/10/20 18:18 Promyelocytes # 0.0 K/mm3 10/10/20 18:18 Blast Cells # 0.0 K/mm3 10/10/20 18:18 WBC Morphology Not Reportable 10/10/20 18:18 Hypersegmented Neuts Not Reportable 10/10/20 18:18 Hyposegmented Neuts Not Reportable 10/10/20 18:18 Hypogranular Neuts Not Reportable 10/10/20 18:18 Smudge Cells Not Reportable 10/10/20 18:18 Toxic Granulation Not Reportable 10/10/20 18:18 Toxic Vacuolation Not Reportable 10/10/20 18:18 Dohle Bodies Not Reportable 10/10/20 18:18 Pelger-Huet Anomaly Not Reportable 10/10/20 18:18 Dionicio Rods Not Reportable 10/10/20 18:18 Platelet Estimate Consistent w auto 10/10/20 18:18 Clumped Platelets Not Reportable 10/10/20 18:18 Plt Clumps, EDTA Not Reportable 10/10/20 18:18 Large Platelets Rare 10/10/20 18:18 Giant Platelets Rare 10/10/20 18:18 Platelet Satelliting Not Reportable 10/10/20 18:18 Plt Morphology Comment Not Reportable 10/10/20 18:18 RBC Morphology Not Reportable 10/10/20 18:18 Dimorphic RBCs Not Reportable 10/10/20 18:18 Polychromasia Not Reportable 10/10/20 18:18 Hypochromasia Not Reportable 10/10/20 18:18 Poikilocytosis Not Reportable 10/10/20 18:18 Anisocytosis Not Reportable 10/10/20 18:18 Microcytosis Not Reportable 10/10/20 18:18 Macrocytosis Not Reportable 10/10/20 18:18 Spherocytes Not Reportable 10/10/20 18:18 Pappenheimer Bodies Not Reportable 10/10/20 18:18 Sickle Cells Not Reportable 10/10/20 18:18 Target Cells Not Reportable 10/10/20 18:18 Tear Drop Cells Not Reportable 10/10/20 18:18 Ovalocytes Not Reportable 10/10/20 18:18 Helmet Cells Not Reportable 10/10/20 18:18 Medley-Garwood Bodies Not Reportable 10/10/20 18:18 [place] Rings Not Reportable 10/10/20 18:18 Adelfo Cells Not Reportable 10/10/20 18:18 Bite Cells Not Reportable 10/10/20 18:18 Crenated Cell Not Reportable 10/10/20 18:18 Elliptocytes Not Reportable 10/10/20 18:18 Acanthocytes (Spur) Not Reportable 10/10/20 18:18 Rouleaux Not Reportable 10/10/20 18:18 Hemoglobin C Crystals Not Reportable 10/10/20 18:18 Schistocytes Not Reportable 10/10/20 18:18 Malaria parasites Not Reportable 10/10/20 18:18 Mauricio Bodies Not Reportable 10/10/20 18:18 Hem Pathologist Commnt No 10/10/20 18:18 PT 13.5 Sec. (12.2-14.9) 10/28/20 07:00 INR 1.05 (0.87-1.13) 10/28/20 07:00 APTT 26.9 Sec. (24.2-36.6) 10/10/20 18:18 D-Dimer 679.5 ng/mlDDU (0-234) H 10/10/20 10:48 Heparin Anti-Xa Level 0.22 U.I./ml (0.3-0.7) L 10/11/20 08:35 ABG pH 7.329 (7.320-7.450) 10/31/20 16:17 POC ABG pCO2 71.1 mmHg (32.0-48.0) H 10/31/20 16:17 ABG pCO2 55.5 mm Hg 10/16/20 05:10 POC ABG pO2 67.4 mmHg (83-108) L 10/31/20 16:17 ABG pO2 104.5 mm Hg (80.0-90.0) H 10/16/20 05:10 POC ABG HCO3 36.6 10/31/20 16:17 ABG HCO3 35.1 mmol/L (20.0-26.0) H 10/16/20 05:10 ABG O2 Saturation 91.9 (0-100) 10/31/20 16:17 ABG O2 Content 10.8 (0.0-44) 10/16/20 05:10 POC ABG Base Excess 8.6 10/31/20 16:17 ABG Base Excess 9.5 mmol/L (-2.0-3.0) H 10/16/20 05:10 ABG Hemoglobin 10.9 (12.0-17.5) L 10/31/20 16:17 ABG Oxyhemoglobin 90.7 (94-98) L 10/31/20 16:17 ABG Carboxyhemoglobin 1.9 % (0.0-5.0) 10/16/20 05:10 ABG Methemoglobin 0.3 (0.0-1.5) 10/31/20 16:17 ABG Sodium 140.1 mmol/L (136.0-145.0) 10/31/20 16:17 ABG Potassium 4.3 mmol/L (3.40-4.50) 10/31/20 16:17 ABG Chloride 102.0 mmol/L (98-107) 10/31/20 16:17 ABG Glucose 134 mg/dL (65-95) H 10/31/20 16:17 VBG pH 6.870 (7.320-7.420) L* 10/10/20 10:48 Oxyhemoglobin 95.3 % (95.0-99.0) 10/16/20 05:10 Carboxyhemoglobin 1.0 (0.5-1.5) 10/31/20 16:17 FiO2 35 % 10/16/20 05:10 FiO2 % 35 10/31/20 16:17 Sodium 144 mmol/L (137-145) 10/31/20 04:00 Potassium 4.0 mmol/L (3.6-5.0) 10/31/20 04:00 Chloride 102.9 mmol/L (98-107) 10/31/20 04:00 Carbon Dioxide 38 mmol/L (22-30) H 10/31/20 04:00 Anion Gap 7 mmol/L 10/31/20 04:00 BUN 32 mg/dL (9-20) H 10/31/20 04:00 Creatinine 1.2 mg/dL (0.8-1.3) 10/31/20 04:00 Estimated GFR > 60 ml/min 10/31/20 04:00 BUN/Creatinine Ratio 27 % 10/31/20 04:00 Glucose 121 mg/dL (75-100) H 10/31/20 04:00 POC Glucose 120 mg/dL (70-105) H 11/01/20 17:17 Hemoglobin A1c 6.0 % (4-6) 10/11/20 02:00 Lactic Acid 1.10 mmol/L (0.7-2.0) 10/13/20 04:52 Calcium 8.6 mg/dL (8.4-10.2) 10/31/20 04:00 Phosphorus 5.20 mg/dL (2.5-4.5) H D 10/17/20 03:32 Magnesium 2.30 mg/dL (1.7-2.3) 10/17/20 03:32 Ferritin 81.4 ng/mL (30.0-300.0) 10/10/20 10:48 Total Bilirubin 1.70 mg/dL (0.1-1.2) H 10/18/20 03:27 AST 37 units/L (5-40) 10/18/20 03:27 ALT 32 units/L (7-56) 10/18/20 03:27 Alkaline Phosphatase 97 units/L (35-129) 10/18/20 03:27 Ammonia 214.0 umol/L (25-60) H 10/10/20 10:46 Lactate Dehydrogenase 386 units/L (91-180) H 10/10/20 10:48 Total Creatine Kinase 1192 units/L (55-170) H 10/10/20 18:18 CK-MB (CK-2) 21.7 ng/mL (0.0-4.0) H 10/10/20 18:18 CK-MB (CK-2) Rel Index 1.8 (0-4) 10/10/20 18:18 Troponin T 0.125 ng/mL (0.00-0.029) H* D 10/12/20 04:00 C-Reactive Protein 0.90 mg/dL (0.00-1.30) 10/10/20 10:48 NT-Pro-B Natriuret Pep 1187 pg/mL (0-900) H 10/10/20 10:46 Total Protein 6.3 g/dL (6.3-8.2) 10/18/20 03:27 Albumin 3.1 g/dL (3.9-5) L 10/18/20 03:27 Albumin/Globulin Ratio 1.0 % 10/18/20 03:27 Triglycerides 278 mg/dL (2-149) H 10/13/20 04:52 Cholesterol 138 mg/dL (50-199) 10/10/20 18:18 LDL Cholesterol Direct 76 mg/dL (50-130) 10/10/20 18:18 HDL Cholesterol 49 mg/dL (40-59) 10/10/20 18:18 Cholesterol/HDL Ratio 2.81 % 10/10/20 18:18 Procalcitonin 4.98 ng/mL (<0.15) 10/15/20 04:12 TSH 6.260 mlU/mL (0.270-4.200) H 10/10/20 10:46 Arterial Blood Glucose 134 mg/dL (65-95) H 10/31/20 16:17 Arterial Blood Ionized Calcium 4.7 mg/dL (4.6-5.3) 10/31/20 16:17 Urine Color Angelica (Yellow) 10/18/20 Unknown Urine Turbidity Cloudy (Clear) 10/18/20 Unknown Urine pH 5.0 (5.0-7.0) 10/18/20 Unknown Ur Specific [place] 1.017 (1.003-1.030) 10/18/20 Unknown Urine Protein 100 mg/dl mg/dL (Negative) 10/18/20 Unknown Urine Glucose (UA) Neg mg/dL (Negative) 10/18/20 Unknown Urine Ketones Neg mg/dL (Negative) 10/18/20 Unknown Urine Blood Lg (Negative) 10/18/20 Unknown Urine Nitrite Neg (Negative) 10/18/20 Unknown Urine Bilirubin Neg (Negative) 10/18/20 Unknown Urine Urobilinogen 4.0 mg/dL (<2.0) 10/18/20 Unknown Ur Leukocyte Esterase Neg (Negative) 10/18/20 Unknown Urine WBC (Auto) 115.0 /HPF (0.0-6.0) H 10/18/20 Unknown Urine RBC (Auto) 98.0 /HPF (0.0-6.0) 10/18/20 Unknown U Epithel Cells (Auto) 2.0 /HPF (0-13.0) 10/18/20 Unknown Urine WBC Clumps 3+ /HPF 10/18/20 Unknown Urine Mucus Few /HPF 10/11/20 13:30 Urine Eosinophils None seen (None Seen) 10/11/20 13:30 Urine Creatinine 93.7 mg/dL (0.1-20.0) H 10/19/20 13:14 Urine Sodium 25 mmol/L 10/19/20 13:14 Urine Urea Nitrogen 845 10/19/20 13:14 Nasal Screen MRSA (PCR) Positive (Negative) 10/20/20 13:30 Random Vancomycin 5.8 ug/mL (0-40.0) 10/21/20 06:30 Urine Opiates Screen Negative 10/10/20 10:50 Urine Methadone Screen Negative 10/10/20 10:50 Ur Barbiturates Screen Negative 10/10/20 10:50 Ur Phencyclidine Scrn Negative 10/10/20 10:50 Ur Amphetamines Screen Negative 10/10/20 10:50 U Benzodiazepines Scrn Negative 10/10/20 10:50 Urine Cocaine Screen Negative 10/10/20 10:50 U Marijuana (THC) Screen Positive 10/10/20 10:50 Drugs of Abuse Note Disclamer 10/10/20 10:50 Plasma/Serum Alcohol < 0.01 % (0-0.07) 10/10/20 10:48 Coronavirus (PCR) Negative (Negative) 10/11/20 Unknown Blood Type AB POSITIVE 10/10/20 10:48 Antibody Screen Negative 10/10/20 10:48 [place]/IV: Voiding Method Incontinent Active Medications - Current Medications Current Medications: Generic Name Dose Route Start Last Admin Trade Name Freq PRN Reason Stop Dose Admin Acetaminophen 650 mg 10/10/20 21:51 10/20/20 09:11 Acetaminophen 325 Mg Tab PO 650 mg Q4H PRN Administration Pain MILD(1-3)/Fever >100.5/[place] Acetaminophen 650 mg 10/11/20 11:24 10/17/20 17:16 Acetaminophen 650 Mg Rect Supp [place] 650 mg Q6H PRN Administration Fever >101 Albuterol 2.5 mg 10/11/20 13:12 Albuterol 2.5 Mg/3 Ml Nebu IH Q6HRT PRN Shortness Of Breath Amlodipine Besylate 10 mg 10/25/20 13:00 11/01/20 09:40 Amlodipine 10 Mg Tab PO 10 mg QDAY [facility] Administration Lipase/Protease/Amylase 1 each 10/10/20 22:18 Lipase 10,500/Protease 25,000/Amylase 43,750 (Units) Dr Cap FEEDTUBE PRN PRN For Clogged Feeding Tube Clonidine HCl 0.3 mg 10/14/20 15:00 10/28/20 14:58 Clonidine Tts 0.3 Mg/24 Hr Patch TD 0.3 mg Fr [facility] Administration Docusate Sodium 100 mg 10/16/20 22:00 11/01/20 09:40 Docusate Sodium 100 Mg/10 Ml Oral Liqd PO 100 mg BID [facility] Administration Fentanyl 25 mcg 10/31/20 13:00 11/01/20 20:28 Fentanyl 100 Mcg/2 Ml Inj IV 25 mcg Q2H PRN Administration ANALGESIA Fentanyl 25 mcg 10/31/20 14:00 10/31/20 17:16 Fentanyl 25 Mcg/Hr Patch 72hr TD Not Given Q3D [facility] Furosemide 20 mg 11/01/20 14:00 11/01/20 14:28 Furosemide 20 Mg/2 Ml Inj IV 20 mg ONCE [facility] Administration Glycopyrrolate 2 mg 10/31/20 09:30 11/01/20 18:09 Glycopyrrolate 2 Mg Tab PO 2 mg Q6HR [facility] Administration Heparin Sodium (Porcine) 5,000 unit 10/11/20 22:00 11/01/20 21:06 Heparin 5,000 Unit/1 Ml Vial SUB-Q 5,000 unit Q12HR [facility] Administration Hydralazine HCl 5 mg 10/15/20 20:25 11/01/20 21:03 Hydralazine 20 Mg/1 Ml Inj IV 5 mg Q6H PRN Administration Hypertension Hydralazine HCl 100 mg 10/24/20 09:30 11/01/20 12:33 Hydralazine 25 Mg Tab PO 100 mg Q8HR [facility] Administration Hydromorphone HCl 0.5 mg 11/01/20 20:55 11/01/20 21:03 Hydromorphone 1 Mg/1 Ml Inj IV 0.5 mg Q3H PRN Administration Pain , Severe (7-10) Hydrophilic Ointment 1 applic 10/10/20 10:34 Lip Therapy Vaseline TP Q2HR PRN Dry Lips Levofloxacin/Dextrose 750 mg in 150 mls @ 100 mls/hr 11/01/20 23:00 Levaquin 750mg/150ml IV Q24H [facility] Protocol Lansoprazole 30 mg 10/24/20 10:00 11/01/20 09:40 Lansoprazole 30 Mg Solutab FEEDTUBE 30 mg BID [facility] Administration Levetiracetam 500 mg 10/31/20 10:00 11/01/20 09:41 Levetiracetam 500 Mg/5 Ml Oral Liqd PO 500 mg BID [facility] Administration Metoclopramide HCl 10 mg 10/10/20 21:51 Metoclopramide 10 Mg/2 Ml Inj IV Q6H PRN Nausea And Vomiting Metoprolol Tartrate 100 mg 10/21/20 14:00 11/01/20 19:10 Metoprolol Tartrate 50 Mg Tab PO 100 mg TID [facility] Administration Multi-Ingred Cream/Lotion/Oil/Oint 1 applic 10/10/20 10:34 Mineral Oil/Petrolatum, White Ophth Oint 3.5 Gm OU Q4HR PRN Dry Eye(s) Ondansetron HCl 4 mg 10/10/20 21:51 11/01/20 20:48 Ondansetron 4 Mg/2 Ml Inj IV 4 mg Q3H PRN Administration Nausea And Vomiting Polyethylene Glycol 17 gm 10/17/20 10:00 11/01/20 09:41 Polyethylene Glycol 3350 17 Gm Powder PO 17 gm QDAY [facility] Administration Quetiapine Fumarate 100 mg 11/02/20 10:00 Quetiapine 100 Mg Tab PO DAILY [facility] Quetiapine Fumarate 150 mg 11/01/20 22:00 Quetiapine 100 Mg Tab PO QHS [facility] Scopolamine 1 each 10/17/20 10:00 11/01/20 09:42 Scopolamine Transdermal Patch 72 Hr TD 1 each Q3D [facility] Administration Simple Syrup 15 ml 10/10/20 22:18 Simple Syrup 15 Ml FEEDTUBE PRN PRN Hypoglycemia Simple Syrup 30 ml 10/10/20 22:18 Simple Syrup 15 Ml FEEDTUBE PRN PRN Hypoglycemia Sodium Bicarbonate 325 mg 10/10/20 22:18 Sodium Bicarbonate 325 Mg Tab FEEDTUBE PRN PRN For Clogged Feeding Tube Sodium Chloride 10 ml 10/10/20 22:00 11/01/20 10:05 Sodium Chloride 0.9% 10 Ml Flush Syringe IV 10 ml BID [facility] Administration Sodium Chloride 10 ml 10/10/20 21:51 10/21/20 09:56 Sodium Chloride 0.9% 10 Ml Flush Syringe IV 10 ml PRN PRN Administration LINE FLUSH Nutrition/Malnutrition Assess - Dietary Evaluation Nutrition/Malnutrition Findings: Nutrition Notes Start: 10/11/20 08:38 Freq: Status: Active Protocol: Document 10/31/20 11:54 (Rec: 10/31/20 11:57 [id number]) Nutrition Notes Initial or Follow up Reassessment Current Diagnosis Acute Kidney Injury,Sepsis, Hypertension,Heart Failure, Respiratory Failure Other Pertinent Diagnosis GIB, pneu, MRSA [place], pulmonary edema Current Diet Prmote at 80 ml/hr Labs/Tests BUN 32 Pertinent Medications Reviewed Height 6 ft Weight 126.4 kg [place] Body Weight (kg) 80.90 BMI 37.8 Weight Status Morbidly Obese Subjective/Other Information FU for TF tolerance. Observed Promote running at goal rate of 80 ml/hr. Percent of energy/protein needs met: 100%/74% Burn Absent Trauma Absent Difficulty In Swallowing Current % PO Negligible Minimum of two criteria No Fluid Accumulation Mild (non-severe) #1 Nutrition Diagnosis Inadequate oral intake Diagnosis Progress(for reassessment Continues documentation) Is patient on ventilator? Yes Is Patient Ambulatory and/or Out of Bed No REE-([facility]-confined to bed) 2579.976 Kcal/Kg value to use for calculation 15 Approximate Energy Requirements Using 1896 kcal/Kg Calculation Used for Recommendations Kcal/kg Additional Notes protein needs: >162g (>2 kgIBW ) fluid needs: 1 ml/kcal or per MD Nutrition Intervention Change Diet Order: Continue Nutrition Support: Promote at 80 ml/hr with a free water flush of 200 ml q4hr for hypernatremia. Once hypernatremia resolved, resume flush of 50 ml q4h. Kcal 1,920 Protein (gm) 120 Fluid (mL) 1,611 Goal #1 Tolerate TF Goal #2 Meet at least 70% of protein and 100% of kcal needs via TF Follow-Up By: 11/02/20 Additional Comments FU for TF tolerance
[2020-11-01] MEDS: ONDANSETRON 4 MG/2 ML INJ IV PRN (20:48)
[2020-11-01] MEDS: HYDROmorphone 1 MG/1 ML INJ IV PRN (21:03)
[2020-11-01] MEDS: hydrALAZINE 20 MG/1 ML INJ IV PRN (21:03)
--- NOTE | 2020-11-01 22:01 | XRay Report ---
CHEST 1 VIEW 11/01/2020 9:44 PM INDICATION / CLINICAL INFORMATION: Aspiration. COMPARISON: 10/31/2020. FINDINGS: SUPPORT DEVICES: Unchanged. HEART / MEDIASTINUM: Stable. LUNGS / PLEURA: Interval development of focal airspace consolidation in the lateral right mid lung an d also likely within the medial right lower lung. No pneumothorax. ADDITIONAL FINDINGS: No significant additional findings. IMPRESSION: 1. Interval development of airspace disease within the right lung concerning for pneumonia. Signer Name: Jairo Felipe MD Signed: 11/01/2020 9:57 PM Workstation Name: [id number]
[2020-11-02] MEDS: hydrALAZINE 20 MG/1 ML INJ IV PRN (02:08)
[2020-11-02] MEDS: HYDROmorphone 1 MG/1 ML INJ IV PRN ×3 (02:38→21:00)
[2020-11-02] MEDS: GLYCOPYRROLATE 2 MG TAB PO SCH ×3 (05:21→18:17)
[2020-11-02] MEDS: hydrALAZINE 25 MG TAB PO SCH ×3 (05:21→21:38)
[2020-11-02 05:50] LABS: Hematocrit 29.5 % (35.5-45.6); Hemoglobin 9.8 gm/dl (11.8-15.2)
[2020-11-02 06:10] LABS: BUN/Creatinine Ratio 23; Blood Urea Nitrogen 28 mg/dL (9-20); Calcium 9.1 mg/dL (8.4-10.2); Hemolysis Index 0
[2020-11-02] MEDS: METOPROLOL TARTRATE 50 MG TAB PO SCH ×3 (08:45→21:40)
[2020-11-02] MEDS: fentaNYL 100 MCG/2 ML INJ IV PRN (08:50)
[2020-11-02] MEDS: levETIRAcetam 500 MG/5 ML ORAL LIQD PO SCH ×2 (09:26→21:41)
[2020-11-02] MEDS: amLODIPine 10 MG TAB PO SCH (09:55)
[2020-11-02] MEDS: DOCUSATE SODIUM 100 MG/10 ML ORAL LIQD PO SCH ×2 (09:55→21:41)
[2020-11-02] MEDS: POLYETHYLENE GLYCOL 3350 17 GM POWDER PO SCH (09:55)
[2020-11-02] MEDS: QUEtiapine 100 MG TAB PO SCH ×2 (09:55→21:42)
[2020-11-02] MEDS: LANSOPRAZOLE 30 MG SOLUTAB FEEDTUBE SCH ×2 (09:55→21:41)
[2020-11-02] MEDS: HEPARIN 5,000 UNIT/1 ML VIAL SUB-Q SCH ×2 (09:56→21:41)
--- NOTE | 2020-11-02 13:12 | Progress Note ---
Assessment and Plan Cardiac arrest x3 with ROSC Severe septic and cardiogenic shock Acute respiratory failure with hypoxemia and hypercarbia Acute pulmonary edema MOE (acute kidney injury) Lactic acidosis, severe metabolic acidosis Bilateral pneumonia, aspiration pneumonia Elevated troponins - increase peep to 8 - give another lasix 20 mg IV X 1 - repeat CXR in am - continue Seroquel for agitation control - continue Robinul & scopolamine for secretion control - resume daily SAT's and SBT assessment as tolerated - continue contact precautions re: MRSA - continue care as below otherwise; - complete anti-infective's per ID rec's - follow clinically re: fevers / WBC - Monitor hemodynamics closely - wean supplemental oxygen for target O2 sat's > 92% acutely - VAP bundle addressed - continue lung protective strategies - bronchodilators with pulmonary hygiene per RT - wean per pulmonary driven protocols otherwise - Monitor urine output closely - bicarbonate infusion - avoid nephrotoxins, renally dose all medications - continue to avoid benzodiazepine's, reduce the possibility of delirium - continue Scopolamine for secretion control - continue wound care per RN/WCN - prn analgesia per CPOT score - Maintenance of sleep-wake cycle, avoid delirium - continue enteral nutritional support at goal rate as tolerated - G.I. & VTE prophylaxis - PT/OT/ROM exercises - continue mobility protocols for pressure ulcer prophylaxis - Monitor hemodynamics closely - continue other care per attending / other consultants - discharge planning ongoing concurrently .... Re-evaluate in am & prn CONDITION: CRITICAL PROGNOSIS: GUARDED CODE STATUS: FULL CODE The high probability of a clinically significant, sudden or life-threatening deterioration of the [respiratory, cardiovascular & neurologic] system(s) required my full and direct attention, intervention and personal management. The aggregate critical care time was [34] minutes without overlap. Time includes spent on; [x] Data Review and interpretation [x] Patient assessment and monitoring of vital signs [x] Documentation [x] Medication orders and management Subjective Date of service: 11/02/20 Principal diagnosis: Cardiac arrest; Septic Shock; Ac. hypoxemic & hypercapnic resp failure; MOE Interval history: Patient is seen today for: Cardiac arrest with ROSC; Severe septic and cardiogenic shock; Acute respiratory failure with hypoxemia and hypercarbia; Acute pulmonary edema; MOE; Lactic acidosis; severe metabolic acidosis; Bilateral pneumonia; aspiration pneumonia; Elevated troponins Seen and examined at bedside; 24hour events reviewed; nursing and respiratory care staff consulted; no adverse overnight events reported to me; resting peacefully in bed; back on MVS; suspected aspiration overnight but no reported emesis; secretions still frothy and moderate; AMS is persistent Objective Vital Signs - 12hr 11/02/20 11/02/20 11/02/20 01:30 02:01 02:08 Temperature Pulse Rate 78 81 79 Pulse Rate [ From Monitor] Respiratory 17 20 Rate Blood Pressure 170/91 175/89 175/89 O2 Sat by Pulse 96 96 Oximetry 11/02/20 11/02/20 11/02/20 02:31 03:01 03:04 Temperature Pulse Rate 100 H 90 91 H Pulse Rate [ From Monitor] Respiratory 20 20 Rate Blood Pressure 196/116 165/85 165/85 O2 Sat by Pulse 95 90 96 Oximetry 11/02/20 11/02/20 11/02/20 03:30 03:50 04:00 Temperature 99.8 F H 99.8 F H Pulse Rate 90 90 Pulse Rate [ 91 H From Monitor] Respiratory 20 17 Rate Blood Pressure 165/85 158/88 O2 Sat by Pulse 94 95 Oximetry 11/02/20 11/02/20 11/02/20 04:30 05:00 05:30 Temperature Pulse Rate 85 84 93 H Pulse Rate [ From Monitor] Respiratory 18 19 23 Rate Blood Pressure 139/91 157/94 157/94 O2 Sat by Pulse 95 95 98 Oximetry 11/02/20 11/02/20 11/02/20 06:00 06:30 07:00 Temperature Pulse Rate 111 H 88 87 Pulse Rate [ From Monitor] Respiratory 18 20 19 Rate Blood Pressure 173/86 134/65 182/91 O2 Sat by Pulse 99 98 99 Oximetry 11/02/20 11/02/20 11/02/20 07:30 07:44 07:53 Temperature 99.0 F Pulse Rate 91 H 109 H Pulse Rate [ From Monitor] Respiratory 21 Rate Blood Pressure 178/91 173/98 O2 Sat by Pulse 75 L 97 Oximetry 11/02/20 11/02/20 11/02/20 08:00 08:30 08:45 Temperature Pulse Rate 91 H 112 H 92 H Pulse Rate [ 70 From Monitor] Respiratory 23 27 H Rate Blood Pressure 173/98 200/108 184/104 O2 Sat by Pulse 99 99 Oximetry 11/02/20 11/02/20 11/02/20 09:00 09:30 09:55 Temperature Pulse Rate 90 88 90 Pulse Rate [ From Monitor] Respiratory 20 19 Rate Blood Pressure 184/104 165/95 165/95 O2 Sat by Pulse 94 Oximetry 11/02/20 11/02/20 11/02/20 10:00 10:30 11:00 Temperature Pulse Rate 89 67 77 Pulse Rate [ From Monitor] Respiratory 21 18 19 Rate Blood Pressure 165/95 167/101 154/84 O2 Sat by Pulse 96 Oximetry 11/02/20 11/02/20 11/02/20 11:30 12:00 12:28 Temperature 98.8 F Pulse Rate 72 71 Pulse Rate [ From Monitor] Respiratory 18 20 Rate Blood Pressure 148/94 154/97 O2 Sat by Pulse Oximetry Constitutional: appears uncomfortable, other (middle aged obese male with mildly increased respiratory efort at rest) Eyes: non-icteric ENT: oropharynx moist, oropharyngeal exudate pre, other (midline tracheostomy) Neck: supple, no lymphadenopathy, no JVD Effort: mildly labored Ascultation: Bilateral: diminished breath sounds, rhonchi (scant) Percussion: Bilateral: not dull Cardiovascular: regular rate and rhythm, other (S1,S2) Gastrointestinal: normoactive bowel sounds, soft, non-tender, non-distended (protuberant) Integumentary: normal Extremities: no cyanosis, no edema, pulses normal, no ischemia or petechiae Neurologic: pupils equal and round, unable to assess Psychiatric: other (unable to assess re: AMS) CBC and BMP: 11/02/20 05:37 11/02/20 05:37 ABG, PT/INR, D-dimer: ABG ABG pH 7.426 (7.320-7.450) 11/02/20 03:14 POC ABG pCO2 58.9 mmHg (32.0-48.0) H 11/02/20 03:14 ABG pCO2 55.5 mm Hg 10/16/20 05:10 POC ABG pO2 79.9 mmHg (83-108) L 11/02/20 03:14 ABG pO2 104.5 mm Hg (80.0-90.0) H 10/16/20 05:10 POC ABG HCO3 37.9 11/02/20 03:14 ABG O2 Saturation 95.9 (0-100) 11/02/20 03:14 PT/INR, D-dimer PT 13.5 Sec. (12.2-14.9) 10/28/20 07:00 INR 1.05 (0.87-1.13) 10/28/20 07:00 D-Dimer 679.5 ng/mlDDU (0-234) H 10/10/20 10:48 Abnormal lab findings: Abnormal Labs 10/10/20 10/10/20 10/10/20 10:46 10:46 10:46 WBC RBC Hgb Hct RDW Lymph % (Auto) [place] % (Auto) Lymph # (Auto) [place] # (Auto) Seg Neutrophils % Lymphocytes % (Manual) Monocytes % (Manual) Seg Neutrophils # Seg Neutrophils # Man Lymphocytes # (Manual) Monocytes # (Manual) D-Dimer Heparin Anti-Xa Level ABG pH POC ABG pCO2 POC ABG pO2 ABG pO2 ABG HCO3 ABG O2 Saturation ABG Base Excess ABG Hemoglobin ABG Oxyhemoglobin ABG Sodium ABG Potassium ABG Chloride ABG Glucose VBG pH Oxyhemoglobin Carboxyhemoglobin Sodium Potassium Chloride Carbon Dioxide BUN Creatinine Glucose POC Glucose Lactic Acid 13.60 H* Calcium Phosphorus Magnesium Total Bilirubin AST ALT Ammonia 214.0 H Lactate Dehydrogenase Total Creatine Kinase CK-MB (CK-2) Troponin T NT-Pro-B Natriuret Pep Total Protein Albumin Triglycerides TSH 6.260 H Arterial Blood Glucose Arterial Blood Ionized Calcium Urine pH Urine WBC (Auto) Urine Creatinine 10/10/20 10/10/20 10/10/20 10:46 10:48 10:48 WBC RBC 5.28 H Hgb 15.5 H Hct 48.8 H RDW Lymph % (Auto) [place] % (Auto) Lymph # (Auto) [place] # (Auto) Seg Neutrophils % Lymphocytes % (Manual) 42.0 H Monocytes % (Manual) Seg Neutrophils # Seg Neutrophils # Man Lymphocytes # (Manual) Monocytes # (Manual) D-Dimer Heparin Anti-Xa Level ABG pH POC ABG pCO2 POC ABG pO2 ABG pO2 ABG HCO3 ABG O2 Saturation ABG Base Excess ABG Hemoglobin ABG Oxyhemoglobin ABG Sodium ABG Potassium ABG Chloride ABG Glucose VBG pH Oxyhemoglobin Carboxyhemoglobin Sodium Potassium 3.3 L Chloride 91.2 L Carbon Dioxide BUN Creatinine 1.8 H Glucose 231 H POC Glucose Lactic Acid Calcium Phosphorus Magnesium Total Bilirubin AST 60 H ALT 57 H Ammonia Lactate Dehydrogenase Total Creatine Kinase CK-MB (CK-2) Troponin T NT-Pro-B Natriuret Pep 1187 H Total Protein 9.0 H Albumin Triglycerides TSH Arterial Blood Glucose Arterial Blood Ionized Calcium Urine pH Urine WBC (Auto) Urine Creatinine 10/10/20 10/10/20 10/10/20 10:48 10:48 10:48 WBC RBC Hgb Hct RDW Lymph % (Auto) [place] % (Auto) Lymph # (Auto) [place] # (Auto) Seg Neutrophils % Lymphocytes % (Manual) Monocytes % (Manual) Seg Neutrophils # Seg Neutrophils # Man Lymphocytes # (Manual) Monocytes # (Manual) D-Dimer 679.5 H Heparin Anti-Xa Level ABG pH POC ABG pCO2 POC ABG pO2 ABG pO2 ABG HCO3 ABG O2 Saturation ABG Base Excess ABG Hemoglobin ABG Oxyhemoglobin ABG Sodium ABG Potassium ABG Chloride ABG Glucose VBG pH 6.870 L* Oxyhemoglobin Carboxyhemoglobin Sodium Potassium Chloride Carbon Dioxide BUN Creatinine Glucose POC Glucose Lactic Acid Calcium Phosphorus Magnesium Total Bilirubin AST ALT Ammonia Lactate Dehydrogenase 386 H Total Creatine Kinase CK-MB (CK-2) Troponin T NT-Pro-B Natriuret Pep Total Protein Albumin Triglycerides TSH Arterial Blood Glucose Arterial Blood Ionized Calcium Urine pH Urine WBC (Auto) Urine Creatinine 10/10/20 10/10/20 10/10/20 14:10 14:20 15:50 WBC RBC Hgb Hct RDW Lymph % (Auto) [place] % (Auto) Lymph # (Auto) [place] # (Auto) Seg Neutrophils % Lymphocytes % (Manual) Monocytes % (Manual) Seg Neutrophils # Seg Neutrophils # Man Lymphocytes # (Manual) Monocytes # (Manual) D-Dimer Heparin Anti-Xa Level ABG pH 7.175 L 7.247 L POC ABG pCO2 85.0 H POC ABG pO2 43.7 L ABG pO2 60.3 L ABG HCO3 32.0 H ABG O2 Saturation 86.1 L ABG Base Excess ABG Hemoglobin ABG Oxyhemoglobin 67.7 L ABG Sodium ABG Potassium ABG Chloride ABG Glucose 247 H VBG pH Oxyhemoglobin 84.4 L Carboxyhemoglobin Sodium Potassium Chloride Carbon Dioxide BUN Creatinine Glucose POC Glucose Lactic Acid 4.00 H* Calcium Phosphorus Magnesium Total Bilirubin AST ALT Ammonia Lactate Dehydrogenase Total Creatine Kinase CK-MB (CK-2) Troponin T NT-Pro-B Natriuret Pep Total Protein Albumin Triglycerides TSH Arterial Blood Glucose 247 H Arterial Blood Ionized Calcium 4.4 L Urine pH Urine WBC (Auto) Urine Creatinine 10/10/20 10/10/20 10/10/20 15:50 16:22 18:18 WBC RBC Hgb Hct RDW Lymph % (Auto) [place] % (Auto) Lymph # (Auto) [place] # (Auto) Seg Neutrophils % Lymphocytes % (Manual) Monocytes % (Manual) Seg Neutrophils # Seg Neutrophils # Man Lymphocytes # (Manual) Monocytes # (Manual) D-Dimer Heparin Anti-Xa Level ABG pH 7.171 L POC ABG pCO2 96.6 H POC ABG pO2 55.3 L ABG pO2 ABG HCO3 ABG O2 Saturation ABG Base Excess ABG Hemoglobin ABG Oxyhemoglobin 81.4 L ABG Sodium ABG Potassium ABG Chloride ABG Glucose 115 H VBG pH Oxyhemoglobin Carboxyhemoglobin Sodium Potassium Chloride Carbon Dioxide BUN Creatinine Glucose POC Glucose 132 H Lactic Acid Calcium Phosphorus Magnesium Total Bilirubin AST ALT Ammonia Lactate Dehydrogenase Total Creatine Kinase 1192 H CK-MB (CK-2) 21.7 H Troponin T 0.377 H* D NT-Pro-B Natriuret Pep Total Protein Albumin Triglycerides TSH Arterial Blood Glucose 115 H Arterial Blood Ionized Calcium Urine pH Urine WBC (Auto) Urine Creatinine 10/10/20 10/10/20 10/10/20 18:18 18:18 22:49 WBC 23.0 H RBC 5.12 H Hgb Hct RDW Lymph % (Auto) [place] % (Auto) Lymph # (Auto) [place] # (Auto) Seg Neutrophils % Lymphocytes % (Manual) 4.0 L Monocytes % (Manual) 9.0 H Seg Neutrophils # Seg Neutrophils # Man 13.8 H Lymphocytes # (Manual) 0.9 L Monocytes # (Manual) 2.1 H D-Dimer Heparin Anti-Xa Level ABG pH POC ABG pCO2 POC ABG pO2 ABG pO2 ABG HCO3 ABG O2 Saturation ABG Base Excess ABG Hemoglobin ABG Oxyhemoglobin ABG Sodium ABG Potassium ABG Chloride ABG Glucose VBG pH Oxyhemoglobin Carboxyhemoglobin Sodium 146 H Potassium Chloride Carbon Dioxide 34 H D BUN 27 H Creatinine 2.7 H Glucose 102 H POC Glucose Lactic Acid Calcium Phosphorus Magnesium Total Bilirubin AST 90 H ALT 66 H Ammonia Lactate Dehydrogenase Total Creatine Kinase CK-MB (CK-2) Troponin T 0.273 H* D NT-Pro-B Natriuret Pep Total Protein Albumin Triglycerides TSH Arterial Blood Glucose Arterial Blood Ionized Calcium Urine pH Urine WBC (Auto) Urine Creatinine 10/11/20 10/11/20 10/11/20 02:00 02:00 02:00 WBC 17.3 H RBC Hgb Hct RDW Lymph % (Auto) 3.9 L [place] % (Auto) Lymph # (Auto) 0.7 L [place] # (Auto) Seg Neutrophils % 93.0 H Lymphocytes % (Manual) Monocytes % (Manual) Seg Neutrophils # 16.1 H Seg Neutrophils # Man Lymphocytes # (Manual) Monocytes # (Manual) D-Dimer Heparin Anti-Xa Level ABG pH POC ABG pCO2 POC ABG pO2 ABG pO2 ABG HCO3 ABG O2 Saturation ABG Base Excess ABG Hemoglobin ABG Oxyhemoglobin ABG Sodium ABG Potassium ABG Chloride ABG Glucose VBG pH Oxyhemoglobin Carboxyhemoglobin Sodium 149 H Potassium 3.3 L Chloride 95.3 L Carbon Dioxide 37 H BUN 29 H Creatinine 2.6 H Glucose POC Glucose Lactic Acid Calcium Phosphorus Magnesium Total Bilirubin AST 80 H ALT 59 H Ammonia Lactate Dehydrogenase Total Creatine Kinase CK-MB (CK-2) Troponin T 0.201 H* D NT-Pro-B Natriuret Pep Total Protein Albumin 3.6 L Triglycerides TSH Arterial Blood Glucose Arterial Blood Ionized Calcium Urine pH Urine WBC (Auto) Urine Creatinine 10/11/20 10/11/20 10/11/20 03:51 08:35 11:15 WBC RBC Hgb Hct RDW Lymph % (Auto) [place] % (Auto) Lymph # (Auto) [place] # (Auto) Seg Neutrophils % Lymphocytes % (Manual) Monocytes % (Manual) Seg Neutrophils # Seg Neutrophils # Man Lymphocytes # (Manual) Monocytes # (Manual) D-Dimer Heparin Anti-Xa Level 0.22 L ABG pH 7.491 H POC ABG pCO2 57.6 H POC ABG pO2 ABG pO2 ABG HCO3 ABG O2 Saturation ABG Base Excess ABG Hemoglobin ABG Oxyhemoglobin ABG Sodium 150.0 H ABG Potassium 3.1 L ABG Chloride 96.0 L ABG Glucose 122 H VBG pH Oxyhemoglobin Carboxyhemoglobin Sodium Potassium Chloride Carbon Dioxide BUN Creatinine Glucose POC Glucose 151 H Lactic Acid Calcium Phosphorus Magnesium Total Bilirubin AST ALT Ammonia Lactate Dehydrogenase Total Creatine Kinase CK-MB (CK-2) Troponin T NT-Pro-B Natriuret Pep Total Protein Albumin Triglycerides TSH Arterial Blood Glucose 122 H Arterial Blood Ionized Calcium 3.9 L Urine pH Urine WBC (Auto) Urine Creatinine 10/11/20 10/11/20 10/11/20 13:30 13:30 13:30 WBC 15.0 H RBC Hgb Hct RDW Lymph % (Auto) [place] % (Auto) Lymph # (Auto) [place] # (Auto) Seg Neutrophils % Lymphocytes % (Manual) Monocytes % (Manual) Seg Neutrophils # Seg Neutrophils # Man Lymphocytes # (Manual) Monocytes # (Manual) D-Dimer Heparin Anti-Xa Level ABG pH POC ABG pCO2 POC ABG pO2 ABG pO2 ABG HCO3 ABG O2 Saturation ABG Base Excess ABG Hemoglobin ABG Oxyhemoglobin ABG Sodium ABG Potassium ABG Chloride ABG Glucose VBG pH Oxyhemoglobin Carboxyhemoglobin Sodium Potassium Chloride Carbon Dioxide BUN Creatinine Glucose POC Glucose Lactic Acid Calcium Phosphorus Magnesium Total Bilirubin AST ALT Ammonia Lactate Dehydrogenase Total Creatine Kinase CK-MB (CK-2) Troponin T NT-Pro-B Natriuret Pep Total Protein Albumin Triglycerides TSH Arterial Blood Glucose Arterial Blood Ionized Calcium Urine pH 9.0 H Urine WBC (Auto) 18.0 H Urine Creatinine 80.5 H 10/11/20 10/11/20 10/12/20 17:17 23:14 03:53 WBC RBC Hgb Hct RDW Lymph % (Auto) [place] % (Auto) Lymph # (Auto) [place] # (Auto) Seg Neutrophils % Lymphocytes % (Manual) Monocytes % (Manual) Seg Neutrophils # Seg Neutrophils # Man Lymphocytes # (Manual) Monocytes # (Manual) D-Dimer Heparin Anti-Xa Level ABG pH 7.545 H POC ABG pCO2 54.6 H POC ABG pO2 231.9 H ABG pO2 ABG HCO3 ABG O2 Saturation ABG Base Excess ABG Hemoglobin ABG Oxyhemoglobin 98.5 H ABG Sodium 150.5 H ABG Potassium 3.2 L ABG Chloride 96.0 L ABG Glucose 148 H VBG pH Oxyhemoglobin Carboxyhemoglobin Sodium Potassium Chloride Carbon Dioxide BUN Creatinine Glucose POC Glucose 121 H 135 H Lactic Acid Calcium Phosphorus Magnesium Total Bilirubin AST ALT Ammonia Lactate Dehydrogenase Total Creatine Kinase CK-MB (CK-2) Troponin T NT-Pro-B Natriuret Pep Total Protein Albumin Triglycerides TSH Arterial Blood Glucose 148 H Arterial Blood Ionized Calcium 3.8 L Urine pH Urine WBC (Auto) Urine Creatinine 10/12/20 10/12/20 10/12/20 04:00 05:10 05:12 WBC 14.3 H RBC Hgb 11.6 L Hct 35.2 L RDW Lymph % (Auto) [place] % (Auto) Lymph # (Auto) [place] # (Auto) Seg Neutrophils % Lymphocytes % (Manual) Monocytes % (Manual) Seg Neutrophils # Seg Neutrophils # Man Lymphocytes # (Manual) Monocytes # (Manual) D-Dimer Heparin Anti-Xa Level ABG pH POC ABG pCO2 POC ABG pO2 ABG pO2 ABG HCO3 ABG O2 Saturation ABG Base Excess ABG Hemoglobin ABG Oxyhemoglobin ABG Sodium ABG Potassium ABG Chloride ABG Glucose VBG pH Oxyhemoglobin Carboxyhemoglobin Sodium 155 H Potassium 3.3 L Chloride 97.9 L Carbon Dioxide 47 H* D BUN 50 H Creatinine 3.4 H Glucose 146 H POC Glucose 137 H Lactic Acid Calcium 8.0 L Phosphorus Magnesium Total Bilirubin AST ALT Ammonia Lactate Dehydrogenase Total Creatine Kinase CK-MB (CK-2) Troponin T 0.125 H* D NT-Pro-B Natriuret Pep Total Protein Albumin Triglycerides TSH Arterial Blood Glucose Arterial Blood Ionized Calcium Urine pH Urine WBC (Auto) Urine Creatinine 10/12/20 10/12/20 10/12/20 11:39 16:01 19:49 WBC RBC Hgb Hct RDW Lymph % (Auto) [place] % (Auto) Lymph # (Auto) [place] # (Auto) Seg Neutrophils % Lymphocytes % (Manual) Monocytes % (Manual) Seg Neutrophils # Seg Neutrophils # Man Lymphocytes # (Manual) Monocytes # (Manual) D-Dimer Heparin Anti-Xa Level ABG pH POC ABG pCO2 POC ABG pO2 ABG pO2 ABG HCO3 ABG O2 Saturation ABG Base Excess ABG Hemoglobin ABG Oxyhemoglobin ABG Sodium ABG Potassium ABG Chloride ABG Glucose VBG pH Oxyhemoglobin Carboxyhemoglobin Sodium 157 H Potassium 3.3 L Chloride Carbon Dioxide 47 H* BUN 52 H Creatinine 3.0 H Glucose 137 H POC Glucose 138 H 119 H Lactic Acid Calcium 8.0 L Phosphorus Magnesium Total Bilirubin AST ALT Ammonia Lactate Dehydrogenase Total Creatine Kinase CK-MB (CK-2) Troponin T NT-Pro-B Natriuret Pep Total Protein Albumin Triglycerides TSH Arterial Blood Glucose Arterial Blood Ionized Calcium Urine pH Urine WBC (Auto) Urine Creatinine 10/12/20 10/13/20 10/13/20 23:37 02:28 04:52 WBC RBC Hgb Hct RDW Lymph % (Auto) [place] % (Auto) Lymph # (Auto) [place] # (Auto) Seg Neutrophils % Lymphocytes % (Manual) Monocytes % (Manual) Seg Neutrophils # Seg Neutrophils # Man Lymphocytes # (Manual) Monocytes # (Manual) D-Dimer Heparin Anti-Xa Level ABG pH 7.485 H POC ABG pCO2 57.1 H POC ABG pO2 ABG pO2 ABG HCO3 ABG O2 Saturation ABG Base Excess ABG Hemoglobin ABG Oxyhemoglobin ABG Sodium 152.4 H ABG Potassium ABG Chloride ABG Glucose 129 H VBG pH Oxyhemoglobin Carboxyhemoglobin Sodium 155 H Potassium Chloride Carbon Dioxide 45 H* BUN 52 H Creatinine 2.7 H Glucose 121 H POC Glucose 131 H Lactic Acid Calcium Phosphorus Magnesium 2.40 H Total Bilirubin AST ALT Ammonia Lactate Dehydrogenase Total Creatine Kinase CK-MB (CK-2) Troponin T NT-Pro-B Natriuret Pep Total Protein Albumin Triglycerides 278 H TSH Arterial Blood Glucose 129 H Arterial Blood Ionized Calcium 4.1 L Urine pH Urine WBC (Auto) Urine Creatinine 10/13/20 10/13/20 10/13/20 04:52 05:13 11:37 WBC 14.7 H RBC Hgb 11.7 L Hct RDW 15.8 H Lymph % (Auto) [place] % (Auto) Lymph # (Auto) [place] # (Auto) Seg Neutrophils % Lymphocytes % (Manual) Monocytes % (Manual) Seg Neutrophils # Seg Neutrophils # Man Lymphocytes # (Manual) Monocytes # (Manual) D-Dimer Heparin Anti-Xa Level ABG pH POC ABG pCO2 POC ABG pO2 ABG pO2 ABG HCO3 ABG O2 Saturation ABG Base Excess ABG Hemoglobin ABG Oxyhemoglobin ABG Sodium ABG Potassium ABG Chloride ABG Glucose VBG pH Oxyhemoglobin Carboxyhemoglobin Sodium Potassium Chloride Carbon Dioxide BUN Creatinine Glucose POC Glucose 116 H 116 H Lactic Acid Calcium Phosphorus Magnesium Total Bilirubin AST ALT Ammonia Lactate Dehydrogenase Total Creatine Kinase CK-MB (CK-2) Troponin T NT-Pro-B Natriuret Pep Total Protein Albumin Triglycerides TSH Arterial Blood Glucose Arterial Blood Ionized Calcium Urine pH Urine WBC (Auto) Urine Creatinine 10/13/20 10/14/20 10/14/20 17:50 03:45 04:46 WBC 11.1 H RBC Hgb Hct RDW 15.3 H Lymph % (Auto) [place] % (Auto) Lymph # (Auto) [place] # (Auto) Seg Neutrophils % Lymphocytes % (Manual) Monocytes % (Manual) Seg Neutrophils # Seg Neutrophils # Man Lymphocytes # (Manual) Monocytes # (Manual) D-Dimer Heparin Anti-Xa Level ABG pH POC ABG pCO2 59.6 H POC ABG pO2 ABG pO2 ABG HCO3 ABG O2 Saturation ABG Base Excess ABG Hemoglobin ABG Oxyhemoglobin ABG Sodium 151.4 H ABG Potassium 3.3 L ABG Chloride ABG Glucose 138 H VBG pH Oxyhemoglobin Carboxyhemoglobin 1.6 H Sodium Potassium Chloride Carbon Dioxide BUN Creatinine Glucose POC Glucose 140 H Lactic Acid Calcium Phosphorus Magnesium Total Bilirubin AST ALT Ammonia Lactate Dehydrogenase Total Creatine Kinase CK-MB (CK-2) Troponin T NT-Pro-B Natriuret Pep Total Protein Albumin Triglycerides TSH Arterial Blood Glucose 138 H Arterial Blood Ionized Calcium 4.5 L Urine pH Urine WBC (Auto) Urine Creatinine 10/14/20 10/14/20 10/14/20 04:46 05:10 11:11 WBC RBC Hgb Hct RDW Lymph % (Auto) [place] % (Auto) Lymph # (Auto) [place] # (Auto) Seg Neutrophils % Lymphocytes % (Manual) Monocytes % (Manual) Seg Neutrophils # Seg Neutrophils # Man Lymphocytes # (Manual) Monocytes # (Manual) D-Dimer Heparin Anti-Xa Level ABG pH POC ABG pCO2 POC ABG pO2 ABG pO2 ABG HCO3 ABG O2 Saturation ABG Base Excess ABG Hemoglobin ABG Oxyhemoglobin ABG Sodium ABG Potassium ABG Chloride ABG Glucose VBG pH Oxyhemoglobin Carboxyhemoglobin Sodium 152 H Potassium 3.5 L Chloride Carbon Dioxide 38 H D BUN 46 H Creatinine 2.3 H Glucose 127 H POC Glucose 116 H 114 H Lactic Acid Calcium Phosphorus Magnesium Total Bilirubin AST ALT Ammonia Lactate Dehydrogenase Total Creatine Kinase CK-MB (CK-2) Troponin T NT-Pro-B Natriuret Pep Total Protein Albumin Triglycerides TSH Arterial Blood Glucose Arterial Blood Ionized Calcium Urine pH Urine WBC (Auto) Urine Creatinine 10/14/20 10/14/20 10/15/20 18:53 23:23 04:12 WBC RBC Hgb Hct RDW Lymph % (Auto) [place] % (Auto) Lymph # (Auto) [place] # (Auto) Seg Neutrophils % Lymphocytes % (Manual) Monocytes % (Manual) Seg Neutrophils # Seg Neutrophils # Man Lymphocytes # (Manual) Monocytes # (Manual) D-Dimer Heparin Anti-Xa Level ABG pH POC ABG pCO2 POC ABG pO2 ABG pO2 ABG HCO3 ABG O2 Saturation ABG Base Excess ABG Hemoglobin ABG Oxyhemoglobin ABG Sodium ABG Potassium ABG Chloride ABG Glucose VBG pH Oxyhemoglobin Carboxyhemoglobin Sodium 149 H Potassium 3.2 L Chloride Carbon Dioxide 37 H BUN 40 H Creatinine 2.0 H Glucose 124 H POC Glucose 128 H 113 H Lactic Acid Calcium Phosphorus Magnesium Total Bilirubin AST ALT Ammonia Lactate Dehydrogenase Total Creatine Kinase CK-MB (CK-2) Troponin T NT-Pro-B Natriuret Pep Total Protein Albumin Triglycerides TSH Arterial Blood Glucose Arterial Blood Ionized Calcium Urine pH Urine WBC (Auto) Urine Creatinine 10/15/20 10/15/20 10/15/20 04:22 11:39 17:36 WBC RBC Hgb Hct RDW Lymph % (Auto) [place] % (Auto) Lymph # (Auto) [place] # (Auto) Seg Neutrophils % Lymphocytes % (Manual) Monocytes % (Manual) Seg Neutrophils # Seg Neutrophils # Man Lymphocytes # (Manual) Monocytes # (Manual) D-Dimer Heparin Anti-Xa Level ABG pH POC ABG pCO2 POC ABG pO2 ABG pO2 115.0 H ABG HCO3 38.1 H ABG O2 Saturation ABG Base Excess 11.3 H ABG Hemoglobin 11.0 L ABG Oxyhemoglobin ABG Sodium ABG Potassium ABG Chloride ABG Glucose VBG pH Oxyhemoglobin Carboxyhemoglobin Sodium Potassium Chloride Carbon Dioxide BUN Creatinine Glucose POC Glucose 123 H 118 H Lactic Acid Calcium Phosphorus Magnesium Total Bilirubin AST ALT Ammonia Lactate Dehydrogenase Total Creatine Kinase CK-MB (CK-2) Troponin T NT-Pro-B Natriuret Pep Total Protein Albumin Triglycerides TSH Arterial Blood Glucose Arterial Blood Ionized Calcium Urine pH Urine WBC (Auto) Urine Creatinine 10/15/20 10/16/20 10/16/20 23:18 03:13 05:10 WBC RBC Hgb Hct RDW Lymph % (Auto) [place] % (Auto) Lymph # (Auto) [place] # (Auto) Seg Neutrophils % Lymphocytes % (Manual) Monocytes % (Manual) Seg Neutrophils # Seg Neutrophils # Man Lymphocytes # (Manual) Monocytes # (Manual) D-Dimer Heparin Anti-Xa Level ABG pH POC ABG pCO2 POC ABG pO2 ABG pO2 104.5 H ABG HCO3 35.1 H ABG O2 Saturation ABG Base Excess 9.5 H ABG Hemoglobin 7.9 L ABG Oxyhemoglobin ABG Sodium ABG Potassium ABG Chloride ABG Glucose VBG pH Oxyhemoglobin Carboxyhemoglobin Sodium Potassium 3.3 L Chloride Carbon Dioxide 33 H BUN 37 H Creatinine 1.4 H Glucose 148 H POC Glucose 135 H Lactic Acid Calcium Phosphorus Magnesium 2.40 H Total Bilirubin AST ALT Ammonia Lactate Dehydrogenase Total Creatine Kinase CK-MB (CK-2) Troponin T NT-Pro-B Natriuret Pep Total Protein Albumin Triglycerides TSH Arterial Blood Glucose Arterial Blood Ionized Calcium Urine pH Urine WBC (Auto) Urine Creatinine 10/16/20 10/16/20 10/16/20 06:36 11:08 17:07 WBC RBC Hgb Hct RDW Lymph % (Auto) [place] % (Auto) Lymph # (Auto) [place] # (Auto) Seg Neutrophils % Lymphocytes % (Manual) Monocytes % (Manual) Seg Neutrophils # Seg Neutrophils # Man Lymphocytes # (Manual) Monocytes # (Manual) D-Dimer Heparin Anti-Xa Level ABG pH POC ABG pCO2 POC ABG pO2 ABG pO2 ABG HCO3 ABG O2 Saturation ABG Base Excess ABG Hemoglobin ABG Oxyhemoglobin ABG Sodium ABG Potassium ABG Chloride ABG Glucose VBG pH Oxyhemoglobin Carboxyhemoglobin Sodium Potassium Chloride Carbon Dioxide BUN Creatinine Glucose POC Glucose 150 H 111 H 132 H Lactic Acid Calcium Phosphorus Magnesium Total Bilirubin AST ALT Ammonia Lactate Dehydrogenase Total Creatine Kinase CK-MB (CK-2) Troponin T NT-Pro-B Natriuret Pep Total Protein Albumin Triglycerides TSH Arterial Blood Glucose Arterial Blood Ionized Calcium Urine pH Urine WBC (Auto) Urine Creatinine 10/16/20 10/17/20 10/17/20 23:38 03:32 03:32 WBC RBC Hgb Hct RDW Lymph % (Auto) [place] % (Auto) Lymph # (Auto) [place] # (Auto) Seg Neutrophils % Lymphocytes % (Manual) Monocytes % (Manual) Seg Neutrophils # Seg Neutrophils # Man Lymphocytes # (Manual) Monocytes # (Manual) D-Dimer Heparin Anti-Xa Level ABG pH POC ABG pCO2 POC ABG pO2 ABG pO2 ABG HCO3 ABG O2 Saturation ABG Base Excess ABG Hemoglobin ABG Oxyhemoglobin ABG Sodium ABG Potassium ABG Chloride ABG Glucose VBG pH Oxyhemoglobin Carboxyhemoglobin Sodium 146 H Potassium Chloride Carbon Dioxide 32 H BUN 57 H Creatinine 2.4 H D Glucose 124 H POC Glucose 117 H Lactic Acid Calcium Phosphorus 5.20 H D Magnesium Total Bilirubin AST ALT Ammonia Lactate Dehydrogenase Total Creatine Kinase CK-MB (CK-2) Troponin T NT-Pro-B Natriuret Pep Total Protein Albumin Triglycerides TSH Arterial Blood Glucose Arterial Blood Ionized Calcium Urine pH Urine WBC (Auto) Urine Creatinine 10/17/20 10/17/20 10/18/20 05:10 17:33 00:13 WBC RBC Hgb Hct RDW Lymph % (Auto) [place] % (Auto) Lymph # (Auto) [place] # (Auto) Seg Neutrophils % Lymphocytes % (Manual) Monocytes % (Manual) Seg Neutrophils # Seg Neutrophils # Man Lymphocytes # (Manual) Monocytes # (Manual) D-Dimer Heparin Anti-Xa Level ABG pH POC ABG pCO2 POC ABG pO2 ABG pO2 ABG HCO3 ABG O2 Saturation ABG Base Excess ABG Hemoglobin ABG Oxyhemoglobin ABG Sodium ABG Potassium ABG Chloride ABG Glucose VBG pH Oxyhemoglobin Carboxyhemoglobin Sodium Potassium Chloride Carbon Dioxide BUN Creatinine Glucose POC Glucose 122 H 121 H 23 L Lactic Acid Calcium Phosphorus Magnesium Total Bilirubin AST ALT Ammonia Lactate Dehydrogenase Total Creatine Kinase CK-MB (CK-2) Troponin T NT-Pro-B Natriuret Pep Total Protein Albumin Triglycerides TSH Arterial Blood Glucose Arterial Blood Ionized Calcium Urine pH Urine WBC (Auto) Urine Creatinine 10/18/20 10/18/20 10/18/20 00:16 03:27 03:27 WBC RBC Hgb 11.7 L Hct RDW Lymph % (Auto) [place] % (Auto) Lymph # (Auto) [place] # (Auto) Seg Neutrophils % Lymphocytes % (Manual) Monocytes % (Manual) Seg Neutrophils # Seg Neutrophils # Man Lymphocytes # (Manual) Monocytes # (Manual) D-Dimer Heparin Anti-Xa Level ABG pH POC ABG pCO2 POC ABG pO2 ABG pO2 ABG HCO3 ABG O2 Saturation ABG Base Excess ABG Hemoglobin ABG Oxyhemoglobin ABG Sodium ABG Potassium ABG Chloride ABG Glucose VBG pH Oxyhemoglobin Carboxyhemoglobin Sodium Potassium Chloride 97.6 L Carbon Dioxide BUN 90 H Creatinine 3.3 H Glucose 146 H POC Glucose 134 H Lactic Acid Calcium Phosphorus Magnesium Total Bilirubin 1.70 H AST ALT Ammonia Lactate Dehydrogenase Total Creatine Kinase CK-MB (CK-2) Troponin T NT-Pro-B Natriuret Pep Total Protein Albumin 3.1 L Triglycerides TSH Arterial Blood Glucose Arterial Blood Ionized Calcium Urine pH Urine WBC (Auto) Urine Creatinine 10/18/20 10/18/20 10/18/20 05:09 11:19 17:15 WBC RBC Hgb Hct RDW Lymph % (Auto) [place] % (Auto) Lymph # (Auto) [place] # (Auto) Seg Neutrophils % Lymphocytes % (Manual) Monocytes % (Manual) Seg Neutrophils # Seg Neutrophils # Man Lymphocytes # (Manual) Monocytes # (Manual) D-Dimer Heparin Anti-Xa Level ABG pH POC ABG pCO2 POC ABG pO2 ABG pO2 ABG HCO3 ABG O2 Saturation ABG Base Excess ABG Hemoglobin ABG Oxyhemoglobin ABG Sodium ABG Potassium ABG Chloride ABG Glucose VBG pH Oxyhemoglobin Carboxyhemoglobin Sodium Potassium Chloride Carbon Dioxide BUN Creatinine Glucose POC Glucose 144 H 145 H 151 H Lactic Acid Calcium Phosphorus Magnesium Total Bilirubin AST ALT Ammonia Lactate Dehydrogenase Total Creatine Kinase CK-MB (CK-2) Troponin T NT-Pro-B Natriuret Pep Total Protein Albumin Triglycerides TSH Arterial Blood Glucose Arterial Blood Ionized Calcium Urine pH Urine WBC (Auto) Urine Creatinine 10/18/20 10/18/20 10/19/20 23:16 Unknown 04:55 WBC RBC Hgb Hct RDW Lymph % (Auto) [place] % (Auto) Lymph # (Auto) [place] # (Auto) Seg Neutrophils % Lymphocytes % (Manual) Monocytes % (Manual) Seg Neutrophils # Seg Neutrophils # Man Lymphocytes # (Manual) Monocytes # (Manual) D-Dimer Heparin Anti-Xa Level ABG pH POC ABG pCO2 POC ABG pO2 ABG pO2 ABG HCO3 ABG O2 Saturation ABG Base Excess ABG Hemoglobin ABG Oxyhemoglobin ABG Sodium ABG Potassium ABG Chloride ABG Glucose VBG pH Oxyhemoglobin Carboxyhemoglobin Sodium Potassium Chloride Carbon Dioxide BUN 104 H Creatinine 3.1 H Glucose 139 H POC Glucose 123 H Lactic Acid Calcium Phosphorus Magnesium Total Bilirubin AST ALT Ammonia Lactate Dehydrogenase Total Creatine Kinase CK-MB (CK-2) Troponin T NT-Pro-B Natriuret Pep Total Protein Albumin Triglycerides TSH Arterial Blood Glucose Arterial Blood Ionized Calcium Urine pH Urine WBC (Auto) 115.0 H Urine Creatinine 10/19/20 10/19/20 10/19/20 04:55 11:35 13:14 WBC 15.1 H RBC Hgb 11.1 L Hct 34.4 L RDW Lymph % (Auto) 4.2 L [place] % (Auto) 11.9 H Lymph # (Auto) 0.6 L [place] # (Auto) 1.8 H Seg Neutrophils % 82.0 H Lymphocytes % (Manual) Monocytes % (Manual) Seg Neutrophils # 12.4 H Seg Neutrophils # Man Lymphocytes # (Manual) Monocytes # (Manual) D-Dimer Heparin Anti-Xa Level ABG pH POC ABG pCO2 POC ABG pO2 ABG pO2 ABG HCO3 ABG O2 Saturation ABG Base Excess ABG Hemoglobin ABG Oxyhemoglobin ABG Sodium ABG Potassium ABG Chloride ABG Glucose VBG pH Oxyhemoglobin Carboxyhemoglobin Sodium Potassium Chloride Carbon Dioxide BUN Creatinine Glucose POC Glucose 136 H Lactic Acid Calcium Phosphorus Magnesium Total Bilirubin AST ALT Ammonia Lactate Dehydrogenase Total Creatine Kinase CK-MB (CK-2) Troponin T NT-Pro-B Natriuret Pep Total Protein Albumin Triglycerides TSH Arterial Blood Glucose Arterial Blood Ionized Calcium Urine pH Urine WBC (Auto) Urine Creatinine 93.7 H 10/19/20 10/19/20 10/20/20 17:53 23:39 04:30 WBC RBC Hgb Hct RDW Lymph % (Auto) [place] % (Auto) Lymph # (Auto) [place] # (Auto) Seg Neutrophils % Lymphocytes % (Manual) Monocytes % (Manual) Seg Neutrophils # Seg Neutrophils # Man Lymphocytes # (Manual) Monocytes # (Manual) D-Dimer Heparin Anti-Xa Level ABG pH POC ABG pCO2 POC ABG pO2 ABG pO2 ABG HCO3 ABG O2 Saturation ABG Base Excess ABG Hemoglobin ABG Oxyhemoglobin ABG Sodium ABG Potassium ABG Chloride ABG Glucose VBG pH Oxyhemoglobin Carboxyhemoglobin Sodium Potassium Chloride Carbon Dioxide BUN 104 H Creatinine 2.8 H Glucose 151 H POC Glucose 137 H 133 H Lactic Acid Calcium Phosphorus Magnesium Total Bilirubin AST ALT Ammonia Lactate Dehydrogenase Total Creatine Kinase CK-MB (CK-2) Troponin T NT-Pro-B Natriuret Pep Total Protein Albumin Triglycerides TSH Arterial Blood Glucose Arterial Blood Ionized Calcium Urine pH Urine WBC (Auto) Urine Creatinine 10/20/20 10/20/20 10/20/20 04:30 05:38 11:34 WBC 17.9 H RBC Hgb 11.7 L Hct RDW Lymph % (Auto) [place] % (Auto) Lymph # (Auto) [place] # (Auto) Seg Neutrophils % Lymphocytes % (Manual) Monocytes % (Manual) Seg Neutrophils # Seg Neutrophils # Man Lymphocytes # (Manual) Monocytes # (Manual) D-Dimer Heparin Anti-Xa Level ABG pH POC ABG pCO2 POC ABG pO2 ABG pO2 ABG HCO3 ABG O2 Saturation ABG Base Excess ABG Hemoglobin ABG Oxyhemoglobin ABG Sodium ABG Potassium ABG Chloride ABG Glucose VBG pH Oxyhemoglobin Carboxyhemoglobin Sodium Potassium Chloride Carbon Dioxide BUN Creatinine Glucose POC Glucose 164 H 148 H Lactic Acid Calcium Phosphorus Magnesium Total Bilirubin AST ALT Ammonia Lactate Dehydrogenase Total Creatine Kinase CK-MB (CK-2) Troponin T NT-Pro-B Natriuret Pep Total Protein Albumin Triglycerides TSH Arterial Blood Glucose Arterial Blood Ionized Calcium Urine pH Urine WBC (Auto) Urine Creatinine 10/20/20 10/20/20 10/20/20 17:40 20:20 23:29 WBC RBC Hgb Hct RDW Lymph % (Auto) [place] % (Auto) Lymph # (Auto) [place] # (Auto) Seg Neutrophils % Lymphocytes % (Manual) Monocytes % (Manual) Seg Neutrophils # Seg Neutrophils # Man Lymphocytes # (Manual) Monocytes # (Manual) D-Dimer Heparin Anti-Xa Level ABG pH 7.292 L POC ABG pCO2 68.5 H POC ABG pO2 ABG pO2 ABG HCO3 ABG O2 Saturation ABG Base Excess ABG Hemoglobin 11.6 L ABG Oxyhemoglobin ABG Sodium ABG Potassium ABG Chloride ABG Glucose 145 H VBG pH Oxyhemoglobin Carboxyhemoglobin Sodium Potassium Chloride Carbon Dioxide BUN Creatinine Glucose POC Glucose 130 H 136 H Lactic Acid Calcium Phosphorus Magnesium Total Bilirubin AST ALT Ammonia Lactate Dehydrogenase Total Creatine Kinase CK-MB (CK-2) Troponin T NT-Pro-B Natriuret Pep Total Protein Albumin Triglycerides TSH Arterial Blood Glucose 145 H Arterial Blood Ionized Calcium Urine pH Urine WBC (Auto) Urine Creatinine 10/21/20 10/21/20 10/21/20 04:20 06:26 06:30 WBC RBC Hgb Hct RDW Lymph % (Auto) [place] % (Auto) Lymph # (Auto) [place] # (Auto) Seg Neutrophils % Lymphocytes % (Manual) Monocytes % (Manual) Seg Neutrophils # Seg Neutrophils # Man Lymphocytes # (Manual) Monocytes # (Manual) D-Dimer Heparin Anti-Xa Level ABG pH 7.262 L POC ABG pCO2 72.4 H POC ABG pO2 81.6 L ABG pO2 ABG HCO3 ABG O2 Saturation ABG Base Excess ABG Hemoglobin 11.6 L ABG Oxyhemoglobin ABG Sodium ABG Potassium ABG Chloride ABG Glucose 140 H VBG pH Oxyhemoglobin Carboxyhemoglobin Sodium Potassium Chloride Carbon Dioxide 33 H BUN 104 H Creatinine 2.9 H Glucose 153 H POC Glucose 128 H Lactic Acid Calcium Phosphorus Magnesium Total Bilirubin AST ALT Ammonia Lactate Dehydrogenase Total Creatine Kinase CK-MB (CK-2) Troponin T NT-Pro-B Natriuret Pep Total Protein Albumin Triglycerides TSH Arterial Blood Glucose 140 H Arterial Blood Ionized Calcium Urine pH Urine WBC (Auto) Urine Creatinine 10/21/20 10/21/20 10/21/20 06:30 11:24 17:21 WBC 13.3 H RBC Hgb 10.7 L Hct 32.7 L RDW Lymph % (Auto) [place] % (Auto) Lymph # (Auto) [place] # (Auto) Seg Neutrophils % Lymphocytes % (Manual) Monocytes % (Manual) Seg Neutrophils # Seg Neutrophils # Man Lymphocytes # (Manual) Monocytes # (Manual) D-Dimer Heparin Anti-Xa Level ABG pH POC ABG pCO2 POC ABG pO2 ABG pO2 ABG HCO3 ABG O2 Saturation ABG Base Excess ABG Hemoglobin ABG Oxyhemoglobin ABG Sodium ABG Potassium ABG Chloride ABG Glucose VBG pH Oxyhemoglobin Carboxyhemoglobin Sodium Potassium Chloride Carbon Dioxide BUN Creatinine Glucose POC Glucose 178 H 138 H Lactic Acid Calcium Phosphorus Magnesium Total Bilirubin AST ALT Ammonia Lactate Dehydrogenase Total Creatine Kinase CK-MB (CK-2) Troponin T NT-Pro-B Natriuret Pep Total Protein Albumin Triglycerides TSH Arterial Blood Glucose Arterial Blood Ionized Calcium Urine pH Urine WBC (Auto) Urine Creatinine 10/22/20 10/22/20 10/22/20 00:05 04:30 06:15 WBC RBC Hgb Hct RDW Lymph % (Auto) [place] % (Auto) Lymph # (Auto) [place] # (Auto) Seg Neutrophils % Lymphocytes % (Manual) Monocytes % (Manual) Seg Neutrophils # Seg Neutrophils # Man Lymphocytes # (Manual) Monocytes # (Manual) D-Dimer Heparin Anti-Xa Level ABG pH 7.225 L POC ABG pCO2 76.6 H POC ABG pO2 ABG pO2 ABG HCO3 ABG O2 Saturation ABG Base Excess ABG Hemoglobin 11.1 L ABG Oxyhemoglobin ABG Sodium ABG Potassium ABG Chloride ABG Glucose 151 H VBG pH Oxyhemoglobin Carboxyhemoglobin Sodium Potassium Chloride Carbon Dioxide 32 H BUN 103 H Creatinine 2.7 H Glucose 151 H POC Glucose 135 H Lactic Acid Calcium Phosphorus Magnesium Total Bilirubin AST ALT Ammonia Lactate Dehydrogenase Total Creatine Kinase CK-MB (CK-2) Troponin T NT-Pro-B Natriuret Pep Total Protein Albumin Triglycerides TSH Arterial Blood Glucose 151 H Arterial Blood Ionized Calcium Urine pH Urine WBC (Auto) Urine Creatinine 10/22/20 10/22/20 10/22/20 06:18 11:34 11:44 WBC RBC Hgb Hct RDW Lymph % (Auto) [place] % (Auto) Lymph # (Auto) [place] # (Auto) Seg Neutrophils % Lymphocytes % (Manual) Monocytes % (Manual) Seg Neutrophils # Seg Neutrophils # Man Lymphocytes # (Manual) Monocytes # (Manual) D-Dimer Heparin Anti-Xa Level ABG pH 7.278 L POC ABG pCO2 67.8 H POC ABG pO2 ABG pO2 ABG HCO3 ABG O2 Saturation ABG Base Excess ABG Hemoglobin 10.2 L ABG Oxyhemoglobin ABG Sodium ABG Potassium ABG Chloride ABG Glucose 172 H VBG pH Oxyhemoglobin Carboxyhemoglobin Sodium Potassium Chloride Carbon Dioxide BUN Creatinine Glucose POC Glucose 137 H 147 H Lactic Acid Calcium Phosphorus Magnesium Total Bilirubin AST ALT Ammonia Lactate Dehydrogenase Total Creatine Kinase CK-MB (CK-2) Troponin T NT-Pro-B Natriuret Pep Total Protein Albumin Triglycerides TSH Arterial Blood Glucose 172 H Arterial Blood Ionized Calcium Urine pH Urine WBC (Auto) Urine Creatinine 10/22/20 10/22/20 10/23/20 17:40 23:55 05:11 WBC RBC Hgb Hct RDW Lymph % (Auto) [place] % (Auto) Lymph # (Auto) [place] # (Auto) Seg Neutrophils % Lymphocytes % (Manual) Monocytes % (Manual) Seg Neutrophils # Seg Neutrophils # Man Lymphocytes # (Manual) Monocytes # (Manual) D-Dimer Heparin Anti-Xa Level ABG pH POC ABG pCO2 63.6 H POC ABG pO2 81.2 L ABG pO2 ABG HCO3 ABG O2 Saturation ABG Base Excess ABG Hemoglobin 10.6 L ABG Oxyhemoglobin ABG Sodium ABG Potassium ABG Chloride 109.0 H ABG Glucose 149 H VBG pH Oxyhemoglobin Carboxyhemoglobin Sodium Potassium Chloride Carbon Dioxide BUN Creatinine Glucose POC Glucose 141 H 139 H Lactic Acid Calcium Phosphorus Magnesium Total Bilirubin AST ALT Ammonia Lactate Dehydrogenase Total Creatine Kinase CK-MB (CK-2) Troponin T NT-Pro-B Natriuret Pep Total Protein Albumin Triglycerides TSH Arterial Blood Glucose 149 H Arterial Blood Ionized Calcium Urine pH Urine WBC (Auto) Urine Creatinine 10/23/20 10/23/20 10/23/20 05:39 06:00 11:32 WBC RBC Hgb Hct RDW Lymph % (Auto) [place] % (Auto) Lymph # (Auto) [place] # (Auto) Seg Neutrophils % Lymphocytes % (Manual) Monocytes % (Manual) Seg Neutrophils # Seg Neutrophils # Man Lymphocytes # (Manual) Monocytes # (Manual) D-Dimer Heparin Anti-Xa Level ABG pH POC ABG pCO2 POC ABG pO2 ABG pO2 ABG HCO3 ABG O2 Saturation ABG Base Excess ABG Hemoglobin ABG Oxyhemoglobin ABG Sodium ABG Potassium ABG Chloride ABG Glucose VBG pH Oxyhemoglobin Carboxyhemoglobin Sodium 146 H Potassium Chloride Carbon Dioxide 35 H BUN 92 H Creatinine 2.0 H Glucose 144 H POC Glucose 139 H 176 H Lactic Acid Calcium Phosphorus Magnesium Total Bilirubin AST ALT Ammonia Lactate Dehydrogenase Total Creatine Kinase CK-MB (CK-2) Troponin T NT-Pro-B Natriuret Pep Total Protein Albumin Triglycerides TSH Arterial Blood Glucose Arterial Blood Ionized Calcium Urine pH Urine WBC (Auto) Urine Creatinine 10/23/20 10/23/20 10/24/20 11:34 17:55 05:33 WBC RBC Hgb Hct RDW Lymph % (Auto) [place] % (Auto) Lymph # (Auto) [place] # (Auto) Seg Neutrophils % Lymphocytes % (Manual) Monocytes % (Manual) Seg Neutrophils # Seg Neutrophils # Man Lymphocytes # (Manual) Monocytes # (Manual) D-Dimer Heparin Anti-Xa Level ABG pH POC ABG pCO2 POC ABG pO2 ABG pO2 ABG HCO3 ABG O2 Saturation ABG Base Excess ABG Hemoglobin ABG Oxyhemoglobin ABG Sodium ABG Potassium ABG Chloride ABG Glucose VBG pH Oxyhemoglobin Carboxyhemoglobin Sodium 147 H Potassium Chloride Carbon Dioxide 32 H BUN 76 H Creatinine 1.7 H Glucose 172 H POC Glucose 173 H 135 H Lactic Acid Calcium Phosphorus Magnesium Total Bilirubin AST ALT Ammonia Lactate Dehydrogenase Total Creatine Kinase CK-MB (CK-2) Troponin T NT-Pro-B Natriuret Pep Total Protein Albumin Triglycerides TSH Arterial Blood Glucose Arterial Blood Ionized Calcium Urine pH Urine WBC (Auto) Urine Creatinine 10/24/20 10/24/20 10/24/20 05:41 12:09 18:09 WBC RBC Hgb Hct RDW Lymph % (Auto) [place] % (Auto) Lymph # (Auto) [place] # (Auto) Seg Neutrophils % Lymphocytes % (Manual) Monocytes % (Manual) Seg Neutrophils # Seg Neutrophils # Man Lymphocytes # (Manual) Monocytes # (Manual) D-Dimer Heparin Anti-Xa Level ABG pH POC ABG pCO2 POC ABG pO2 ABG pO2 ABG HCO3 ABG O2 Saturation ABG Base Excess ABG Hemoglobin ABG Oxyhemoglobin ABG Sodium ABG Potassium ABG Chloride ABG Glucose VBG pH Oxyhemoglobin Carboxyhemoglobin Sodium Potassium Chloride Carbon Dioxide BUN Creatinine Glucose POC Glucose 156 H 154 H 132 H Lactic Acid Calcium Phosphorus Magnesium Total Bilirubin AST ALT Ammonia Lactate Dehydrogenase Total Creatine Kinase CK-MB (CK-2) Troponin T NT-Pro-B Natriuret Pep Total Protein Albumin Triglycerides TSH Arterial Blood Glucose Arterial Blood Ionized Calcium Urine pH Urine WBC (Auto) Urine Creatinine 10/24/20 10/25/20 10/25/20 23:39 05:29 08:55 WBC RBC Hgb Hct RDW Lymph % (Auto) [place] % (Auto) Lymph # (Auto) [place] # (Auto) Seg Neutrophils % Lymphocytes % (Manual) Monocytes % (Manual) Seg Neutrophils # Seg Neutrophils # Man Lymphocytes # (Manual) Monocytes # (Manual) D-Dimer Heparin Anti-Xa Level ABG pH POC ABG pCO2 POC ABG pO2 ABG pO2 ABG HCO3 ABG O2 Saturation ABG Base Excess ABG Hemoglobin ABG Oxyhemoglobin ABG Sodium ABG Potassium ABG Chloride ABG Glucose VBG pH Oxyhemoglobin Carboxyhemoglobin Sodium 150 H Potassium Chloride 108.3 H Carbon Dioxide 32 H BUN 57 H Creatinine 1.5 H Glucose 142 H POC Glucose 131 H 142 H Lactic Acid Calcium Phosphorus Magnesium Total Bilirubin AST ALT Ammonia Lactate Dehydrogenase Total Creatine Kinase CK-MB (CK-2) Troponin T NT-Pro-B Natriuret Pep Total Protein Albumin Triglycerides TSH Arterial Blood Glucose Arterial Blood Ionized Calcium Urine pH Urine WBC (Auto) Urine Creatinine 10/25/20 10/25/20 10/25/20 08:55 11:08 18:10 WBC 14.3 H RBC 3.57 L Hgb 10.3 L Hct 31.6 L RDW Lymph % (Auto) [place] % (Auto) Lymph # (Auto) [place] # (Auto) Seg Neutrophils % Lymphocytes % (Manual) Monocytes % (Manual) Seg Neutrophils # Seg Neutrophils # Man Lymphocytes # (Manual) Monocytes # (Manual) D-Dimer Heparin Anti-Xa Level ABG pH POC ABG pCO2 52.3 H POC ABG pO2 ABG pO2 ABG HCO3 ABG O2 Saturation ABG Base Excess ABG Hemoglobin 11.2 L ABG Oxyhemoglobin ABG Sodium ABG Potassium ABG Chloride 108.0 H ABG Glucose 167 H VBG pH Oxyhemoglobin Carboxyhemoglobin Sodium Potassium Chloride Carbon Dioxide BUN Creatinine Glucose POC Glucose 157 H Lactic Acid Calcium Phosphorus Magnesium Total Bilirubin AST ALT Ammonia Lactate Dehydrogenase Total Creatine Kinase CK-MB (CK-2) Troponin T NT-Pro-B Natriuret Pep Total Protein Albumin Triglycerides TSH Arterial Blood Glucose 167 H Arterial Blood Ionized Calcium Urine pH Urine WBC (Auto) Urine Creatinine 10/25/20 10/26/20 10/26/20 18:20 00:20 06:08 WBC RBC Hgb Hct RDW Lymph % (Auto) [place] % (Auto) Lymph # (Auto) [place] # (Auto) Seg Neutrophils % Lymphocytes % (Manual) Monocytes % (Manual) Seg Neutrophils # Seg Neutrophils # Man Lymphocytes # (Manual) Monocytes # (Manual) D-Dimer Heparin Anti-Xa Level ABG pH POC ABG pCO2 POC ABG pO2 ABG pO2 ABG HCO3 ABG O2 Saturation ABG Base Excess ABG Hemoglobin ABG Oxyhemoglobin ABG Sodium ABG Potassium ABG Chloride ABG Glucose VBG pH Oxyhemoglobin Carboxyhemoglobin Sodium Potassium Chloride Carbon Dioxide BUN Creatinine Glucose POC Glucose 127 H 108 H 119 H Lactic Acid Calcium Phosphorus Magnesium Total Bilirubin AST ALT Ammonia Lactate Dehydrogenase Total Creatine Kinase CK-MB (CK-2) Troponin T NT-Pro-B Natriuret Pep Total Protein Albumin Triglycerides TSH Arterial Blood Glucose Arterial Blood Ionized Calcium Urine pH Urine WBC (Auto) Urine Creatinine 10/26/20 10/26/20 10/26/20 07:38 07:38 11:28 WBC 13.5 H RBC 3.37 L Hgb 9.8 L Hct 30.0 L RDW Lymph % (Auto) [place] % (Auto) Lymph # (Auto) [place] # (Auto) Seg Neutrophils % Lymphocytes % (Manual) Monocytes % (Manual) Seg Neutrophils # Seg Neutrophils # Man Lymphocytes # (Manual) Monocytes # (Manual) D-Dimer Heparin Anti-Xa Level ABG pH POC ABG pCO2 POC ABG pO2 ABG pO2 ABG HCO3 ABG O2 Saturation ABG Base Excess ABG Hemoglobin ABG Oxyhemoglobin ABG Sodium ABG Potassium ABG Chloride ABG Glucose VBG pH Oxyhemoglobin Carboxyhemoglobin Sodium 149 H Potassium Chloride 107.6 H Carbon Dioxide 34 H BUN 49 H Creatinine 1.4 H Glucose 137 H POC Glucose 148 H Lactic Acid Calcium Phosphorus Magnesium Total Bilirubin AST ALT Ammonia Lactate Dehydrogenase Total Creatine Kinase CK-MB (CK-2) Troponin T NT-Pro-B Natriuret Pep Total Protein Albumin Triglycerides TSH Arterial Blood Glucose Arterial Blood Ionized Calcium Urine pH Urine WBC (Auto) Urine Creatinine 10/26/20 10/26/20 10/27/20 18:17 23:37 05:08 WBC RBC Hgb Hct RDW Lymph % (Auto) [place] % (Auto) Lymph # (Auto) [place] # (Auto) Seg Neutrophils % Lymphocytes % (Manual) Monocytes % (Manual) Seg Neutrophils # Seg Neutrophils # Man Lymphocytes # (Manual) Monocytes # (Manual) D-Dimer Heparin Anti-Xa Level ABG pH POC ABG pCO2 POC ABG pO2 ABG pO2 ABG HCO3 ABG O2 Saturation ABG Base Excess ABG Hemoglobin ABG Oxyhemoglobin ABG Sodium ABG Potassium ABG Chloride ABG Glucose VBG pH Oxyhemoglobin Carboxyhemoglobin Sodium Potassium Chloride Carbon Dioxide BUN Creatinine Glucose POC Glucose 121 H 152 H 120 H Lactic Acid Calcium Phosphorus Magnesium Total Bilirubin AST ALT Ammonia Lactate Dehydrogenase Total Creatine Kinase CK-MB (CK-2) Troponin T NT-Pro-B Natriuret Pep Total Protein Albumin Triglycerides TSH Arterial Blood Glucose Arterial Blood Ionized Calcium Urine pH Urine WBC (Auto) Urine Creatinine 10/27/20 10/27/20 10/27/20 07:30 07:30 11:59 WBC RBC 3.46 L Hgb 10.2 L Hct 30.9 L RDW Lymph % (Auto) [place] % (Auto) Lymph # (Auto) [place] # (Auto) Seg Neutrophils % Lymphocytes % (Manual) Monocytes % (Manual) Seg Neutrophils # Seg Neutrophils # Man Lymphocytes # (Manual) Monocytes # (Manual) D-Dimer Heparin Anti-Xa Level ABG pH POC ABG pCO2 POC ABG pO2 ABG pO2 ABG HCO3 ABG O2 Saturation ABG Base Excess ABG Hemoglobin ABG Oxyhemoglobin ABG Sodium ABG Potassium ABG Chloride ABG Glucose VBG pH Oxyhemoglobin Carboxyhemoglobin Sodium 146 H Potassium Chloride Carbon Dioxide 34 H BUN 45 H Creatinine Glucose 131 H POC Glucose 143 H Lactic Acid Calcium Phosphorus Magnesium Total Bilirubin AST ALT Ammonia Lactate Dehydrogenase Total Creatine Kinase CK-MB (CK-2) Troponin T NT-Pro-B Natriuret Pep Total Protein Albumin Triglycerides TSH Arterial Blood Glucose Arterial Blood Ionized Calcium Urine pH Urine WBC (Auto) Urine Creatinine 10/27/20 10/27/20 10/28/20 18:52 23:03 07:00 WBC RBC Hgb Hct RDW Lymph % (Auto) [place] % (Auto) Lymph # (Auto) [place] # (Auto) Seg Neutrophils % Lymphocytes % (Manual) Monocytes % (Manual) Seg Neutrophils # Seg Neutrophils # Man Lymphocytes # (Manual) Monocytes # (Manual) D-Dimer Heparin Anti-Xa Level ABG pH POC ABG pCO2 POC ABG pO2 ABG pO2 ABG HCO3 ABG O2 Saturation ABG Base Excess ABG Hemoglobin ABG Oxyhemoglobin ABG Sodium ABG Potassium ABG Chloride ABG Glucose VBG pH Oxyhemoglobin Carboxyhemoglobin Sodium 147 H Potassium Chloride Carbon Dioxide 35 H BUN 39 H Creatinine Glucose 133 H POC Glucose 119 H 158 H Lactic Acid Calcium Phosphorus Magnesium Total Bilirubin AST ALT Ammonia Lactate Dehydrogenase Total Creatine Kinase CK-MB (CK-2) Troponin T NT-Pro-B Natriuret Pep Total Protein Albumin Triglycerides TSH Arterial Blood Glucose Arterial Blood Ionized Calcium Urine pH Urine WBC (Auto) Urine Creatinine 10/28/20 10/28/20 10/28/20 09:00 11:47 17:15 WBC 12.5 H RBC 3.58 L Hgb 10.5 L Hct 32.1 L RDW Lymph % (Auto) [place] % (Auto) Lymph # (Auto) [place] # (Auto) Seg Neutrophils % Lymphocytes % (Manual) Monocytes % (Manual) Seg Neutrophils # Seg Neutrophils # Man Lymphocytes # (Manual) Monocytes # (Manual) D-Dimer Heparin Anti-Xa Level ABG pH POC ABG pCO2 POC ABG pO2 ABG pO2 ABG HCO3 ABG O2 Saturation ABG Base Excess ABG Hemoglobin ABG Oxyhemoglobin ABG Sodium ABG Potassium ABG Chloride ABG Glucose VBG pH Oxyhemoglobin Carboxyhemoglobin Sodium Potassium Chloride Carbon Dioxide BUN Creatinine Glucose POC Glucose 129 H 109 H Lactic Acid Calcium Phosphorus Magnesium Total Bilirubin AST ALT Ammonia Lactate Dehydrogenase Total Creatine Kinase CK-MB (CK-2) Troponin T NT-Pro-B Natriuret Pep Total Protein Albumin Triglycerides TSH Arterial Blood Glucose Arterial Blood Ionized Calcium Urine pH Urine WBC (Auto) Urine Creatinine 10/28/20 10/29/20 10/29/20 23:31 04:23 04:23 WBC 13.6 H RBC 3.47 L Hgb 10.5 L Hct 30.7 L RDW 15.4 H Lymph % (Auto) [place] % (Auto) Lymph # (Auto) [place] # (Auto) Seg Neutrophils % Lymphocytes % (Manual) Monocytes % (Manual) Seg Neutrophils # Seg Neutrophils # Man Lymphocytes # (Manual) Monocytes # (Manual) D-Dimer Heparin Anti-Xa Level ABG pH POC ABG pCO2 POC ABG pO2 ABG pO2 ABG HCO3 ABG O2 Saturation ABG Base Excess ABG Hemoglobin ABG Oxyhemoglobin ABG Sodium ABG Potassium ABG Chloride ABG Glucose VBG pH Oxyhemoglobin Carboxyhemoglobin Sodium Potassium Chloride Carbon Dioxide 35 H BUN 34 H Creatinine Glucose 107 H POC Glucose 138 H Lactic Acid Calcium Phosphorus Magnesium Total Bilirubin AST ALT Ammonia Lactate Dehydrogenase Total Creatine Kinase CK-MB (CK-2) Troponin T NT-Pro-B Natriuret Pep Total Protein Albumin Triglycerides TSH Arterial Blood Glucose Arterial Blood Ionized Calcium Urine pH Urine WBC (Auto) Urine Creatinine 10/29/20 10/29/20 10/29/20 05:21 11:49 23:19 WBC RBC Hgb Hct RDW Lymph % (Auto) [place] % (Auto) Lymph # (Auto) [place] # (Auto) Seg Neutrophils % Lymphocytes % (Manual) Monocytes % (Manual) Seg Neutrophils # Seg Neutrophils # Man Lymphocytes # (Manual) Monocytes # (Manual) D-Dimer Heparin Anti-Xa Level ABG pH POC ABG pCO2 POC ABG pO2 ABG pO2 ABG HCO3 ABG O2 Saturation ABG Base Excess ABG Hemoglobin ABG Oxyhemoglobin ABG Sodium ABG Potassium ABG Chloride ABG Glucose VBG pH Oxyhemoglobin Carboxyhemoglobin Sodium Potassium Chloride Carbon Dioxide BUN Creatinine Glucose POC Glucose 115 H 124 H 129 H Lactic Acid Calcium Phosphorus Magnesium Total Bilirubin AST ALT Ammonia Lactate Dehydrogenase Total Creatine Kinase CK-MB (CK-2) Troponin T NT-Pro-B Natriuret Pep Total Protein Albumin Triglycerides TSH Arterial Blood Glucose Arterial Blood Ionized Calcium Urine pH Urine WBC (Auto) Urine Creatinine 10/30/20 10/30/20 10/30/20 04:59 05:10 11:52 WBC RBC Hgb Hct RDW Lymph % (Auto) [place] % (Auto) Lymph # (Auto) [place] # (Auto) Seg Neutrophils % Lymphocytes % (Manual) Monocytes % (Manual) Seg Neutrophils # Seg Neutrophils # Man Lymphocytes # (Manual) Monocytes # (Manual) D-Dimer Heparin Anti-Xa Level ABG pH POC ABG pCO2 POC ABG pO2 ABG pO2 ABG HCO3 ABG O2 Saturation ABG Base Excess ABG Hemoglobin ABG Oxyhemoglobin ABG Sodium ABG Potassium ABG Chloride ABG Glucose VBG pH Oxyhemoglobin Carboxyhemoglobin Sodium Potassium Chloride Carbon Dioxide 34 H BUN 33 H Creatinine Glucose 128 H POC Glucose 126 H 132 H Lactic Acid Calcium Phosphorus Magnesium Total Bilirubin AST ALT Ammonia Lactate Dehydrogenase Total Creatine Kinase CK-MB (CK-2) Troponin T NT-Pro-B Natriuret Pep Total Protein Albumin Triglycerides TSH Arterial Blood Glucose Arterial Blood Ionized Calcium Urine pH Urine WBC (Auto) Urine Creatinine 10/30/20 10/30/20 10/31/20 16:59 23:19 04:00 WBC RBC Hgb Hct RDW Lymph % (Auto) [place] % (Auto) Lymph # (Auto) [place] # (Auto) Seg Neutrophils % Lymphocytes % (Manual) Monocytes % (Manual) Seg Neutrophils # Seg Neutrophils # Man Lymphocytes # (Manual) Monocytes # (Manual) D-Dimer Heparin Anti-Xa Level ABG pH POC ABG pCO2 POC ABG pO2 ABG pO2 ABG HCO3 ABG O2 Saturation ABG Base Excess ABG Hemoglobin ABG Oxyhemoglobin ABG Sodium ABG Potassium ABG Chloride ABG Glucose VBG pH Oxyhemoglobin Carboxyhemoglobin Sodium Potassium Chloride Carbon Dioxide 38 H BUN 32 H Creatinine Glucose 121 H POC Glucose 118 H 138 H Lactic Acid Calcium Phosphorus Magnesium Total Bilirubin AST ALT Ammonia Lactate Dehydrogenase Total Creatine Kinase CK-MB (CK-2) Troponin T NT-Pro-B Natriuret Pep Total Protein Albumin Triglycerides TSH Arterial Blood Glucose Arterial Blood Ionized Calcium Urine pH Urine WBC (Auto) Urine Creatinine 10/31/20 10/31/20 10/31/20 05:13 11:09 16:17 WBC RBC Hgb Hct RDW Lymph % (Auto) [place] % (Auto) Lymph # (Auto) [place] # (Auto) Seg Neutrophils % Lymphocytes % (Manual) Monocytes % (Manual) Seg Neutrophils # Seg Neutrophils # Man Lymphocytes # (Manual) Monocytes # (Manual) D-Dimer Heparin Anti-Xa Level ABG pH POC ABG pCO2 71.1 H POC ABG pO2 67.4 L ABG pO2 ABG HCO3 ABG O2 Saturation ABG Base Excess ABG Hemoglobin 10.9 L ABG Oxyhemoglobin 90.7 L ABG Sodium ABG Potassium ABG Chloride ABG Glucose 134 H VBG pH Oxyhemoglobin Carboxyhemoglobin Sodium Potassium Chloride Carbon Dioxide BUN Creatinine Glucose POC Glucose 110 H 138 H Lactic Acid Calcium Phosphorus Magnesium Total Bilirubin AST ALT Ammonia Lactate Dehydrogenase Total Creatine Kinase CK-MB (CK-2) Troponin T NT-Pro-B Natriuret Pep Total Protein Albumin Triglycerides TSH Arterial Blood Glucose 134 H Arterial Blood Ionized Calcium Urine pH Urine WBC (Auto) Urine Creatinine 10/31/20 10/31/20 11/01/20 18:16 23:56 04:09 WBC 11.3 H RBC 3.05 L Hgb 9.0 L Hct 27.3 L RDW Lymph % (Auto) [place] % (Auto) Lymph # (Auto) [place] # (Auto) Seg Neutrophils % Lymphocytes % (Manual) Monocytes % (Manual) Seg Neutrophils # Seg Neutrophils # Man Lymphocytes # (Manual) Monocytes # (Manual) D-Dimer Heparin Anti-Xa Level ABG pH POC ABG pCO2 POC ABG pO2 ABG pO2 ABG HCO3 ABG O2 Saturation ABG Base Excess ABG Hemoglobin ABG Oxyhemoglobin ABG Sodium ABG Potassium ABG Chloride ABG Glucose VBG pH Oxyhemoglobin Carboxyhemoglobin Sodium Potassium Chloride Carbon Dioxide BUN Creatinine Glucose POC Glucose 135 H 122 H Lactic Acid Calcium Phosphorus Magnesium Total Bilirubin AST ALT Ammonia Lactate Dehydrogenase Total Creatine Kinase CK-MB (CK-2) Troponin T NT-Pro-B Natriuret Pep Total Protein Albumin Triglycerides TSH Arterial Blood Glucose Arterial Blood Ionized Calcium Urine pH Urine WBC (Auto) Urine Creatinine 11/01/20 11/01/20 11/01/20 05:10 11:51 17:17 WBC RBC Hgb Hct RDW Lymph % (Auto) [place] % (Auto) Lymph # (Auto) [place] # (Auto) Seg Neutrophils % Lymphocytes % (Manual) Monocytes % (Manual) Seg Neutrophils # Seg Neutrophils # Man Lymphocytes # (Manual) Monocytes # (Manual) D-Dimer Heparin Anti-Xa Level ABG pH POC ABG pCO2 POC ABG pO2 ABG pO2 ABG HCO3 ABG O2 Saturation ABG Base Excess ABG Hemoglobin ABG Oxyhemoglobin ABG Sodium ABG Potassium ABG Chloride ABG Glucose VBG pH Oxyhemoglobin Carboxyhemoglobin Sodium Potassium Chloride Carbon Dioxide BUN Creatinine Glucose POC Glucose 123 H 123 H 120 H Lactic Acid Calcium Phosphorus Magnesium Total Bilirubin AST ALT Ammonia Lactate Dehydrogenase Total Creatine Kinase CK-MB (CK-2) Troponin T NT-Pro-B Natriuret Pep Total Protein Albumin Triglycerides TSH Arterial Blood Glucose Arterial Blood Ionized Calcium Urine pH Urine WBC (Auto) Urine Creatinine 11/02/20 11/02/20 11/02/20 03:14 05:37 05:37 WBC RBC Hgb 9.8 L Hct 29.5 L RDW Lymph % (Auto) [place] % (Auto) Lymph # (Auto) [place] # (Auto) Seg Neutrophils % Lymphocytes % (Manual) Monocytes % (Manual) Seg Neutrophils # Seg Neutrophils # Man Lymphocytes # (Manual) Monocytes # (Manual) D-Dimer Heparin Anti-Xa Level ABG pH POC ABG pCO2 58.9 H POC ABG pO2 79.9 L ABG pO2 ABG HCO3 ABG O2 Saturation ABG Base Excess ABG Hemoglobin 10.6 L ABG Oxyhemoglobin ABG Sodium ABG Potassium ABG Chloride ABG Glucose 110 H VBG pH Oxyhemoglobin Carboxyhemoglobin Sodium Potassium Chloride Carbon Dioxide 37 H BUN 28 H Creatinine Glucose 106 H POC Glucose Lactic Acid Calcium Phosphorus Magnesium Total Bilirubin AST ALT Ammonia Lactate Dehydrogenase Total Creatine Kinase CK-MB (CK-2) Troponin T NT-Pro-B Natriuret Pep Total Protein Albumin Triglycerides TSH Arterial Blood Glucose 110 H Arterial Blood Ionized Calcium Urine pH Urine WBC (Auto) Urine Creatinine Chest x-ray: image reviewed (partial RUL atelectasis suspected) Allied health notes reviewed: nursing
[2020-11-02] MEDS ORDERED: FUROSEMIDE 20 MG/2 ML INJ IV SCH (14:00)
--- NOTE | 2020-11-02 15:13 | Progress Note ---
Assessment and Plan he pt is a 55-year-old -[place] male with a past medical history of hypertension, asthma, obesity. He is intubated and sedated on evaluation and thus HPI is obtained per the chart. Pt presented to ED after Covid vaccine and passed out with seizure like activity in the car at the emergency room bay. Patient was found to be unresponsive and with no pulse. ACLS protocol was initiated from the car to the emergency room with continued ACLS protocol. Patient was intubated and after couple of epi ROSC obtained. Central line was p laced and patient was also started on pressors. Patient did not have any fever shortness of breath or cough or any symptoms prior to the COVID-19 vaccination. Patient coded twice in the emergency room. One before the imaging studies and once after the imaging studies. Pt remains intubated, intermittently sedated, intermittent blinking of eyes to painful stimulus (sternal rub) noted. Neurology f/u noted - pt with suspected anoxic brain injury. Brain MRI shows diffuse restricted diffusion and increased T2 signal in the cerebral cortex, findings can be seen in setting of anoxic brain injury and/or status epilepticus. Per primary team, pt is not tolerating weaning from ventilator. Pt is being considered for Trach & Peg. Pt is moderate cardiovascular risk patient going for moderate risk procedure. no cardiac contraindications for trach and peg. tte reviewed - EF 55-60%, mod LVH, mild diastolic dysfunction. (11/02/20) Pt is s/p Trach and PEG placement. Unresponsive. Tele reviewed: SR 80. No events. Paroxismal Afib RVR Currently in sinus rhythm. No systemic AC at this time in regards to paroxysmal AFib/AFlutter given h/o GI bleeding while on heparin gtt. s/p Cardiac Arrest Pt was admitted as a witnessed arrest per HPI. Acute Respiratory Failure s/p Trach & PEG. Pt is on ventilator requiring 100% FIO2, mgmt per primary team. CXR reviewed: R PNA. Seizure Currently on Keppra gtt. HTN Continue current antihypertensive regimen: Amlodipine 10mg, Clonidine patch, Hydralazine 100mg TID, Metoprolol 100mg TID. repeat BMP in am. DVT prophylaxis Cont Heparin SQ prophylaxis. Continue SCD therapy. Pt is in stable cardiac status. Nothing further to add from cardiology standpoint. Will follow. The patient has been seen in conjunction with Dr. S Steen who agrees with the assessment and plan of care. - Patient Problems (1) AMS (altered mental status) Current Visit: Yes Status: Acute (2) Cardiopulmonary arrest with successful resuscitation Current Visit: Yes Status: Acute (3) Acute respiratory failure Current Visit: Yes Status: Acute Qualifiers: Respiratory failure complication: hypoxia and hypercapnia Qualified Code(s): J96.01 - Acute respiratory failure with hypoxia; J96.02 - Acute respiratory failure with hypercapnia (4) Bilateral pneumonia Current Visit: Yes Status: Acute (5) Sepsis with hypotension Current Visit: Yes Status: Acute (6) Person under investigation for COVID-19 Current Visit: Yes Status: Ruled-out (7) Seizure Current Visit: Yes Status: Suspected (8) NSTEMI (non-ST elevated myocardial infarction) Current Visit: Yes Status: Acute (9) MOE (acute kidney injury) Current Visit: Yes Status: Acute (10) GI bleed Current Visit: Yes Status: Acute (11) Acute heart failure with preserved ejection fraction (HFpEF) Current Visit: Yes Status: Acute (12) Hypernatremia Current Visit: Yes Status: Acute (13) Atrial fibrillation and flutter Current Visit: Yes Status: Acute (14) Anemia Current Visit: Yes Status: Acute Subjective Date of service: 11/02/20 Principal diagnosis: Cardiac arrest; Septic Shock; Ac. hypoxemic & hypercapnic resp failure; MOE Interval history: Pt is s/p Trach and PEG placement. Unresponsive. Tele reviewed: SR 80. No events. Objective Last Vital Signs Temp 98.8 F 11/02/20 12:28 Pulse 84 11/02/20 14:24 Resp 20 11/02/20 12:00 BP 168/98 11/02/20 14:24 Pulse Ox 98 11/02/20 13:09 - Physical Examination General: Other (intubated) HEENT: Positive: Normocephaly Neck: Positive: neck supple, trachea midline, Other (Tracheostomy in place.) Cardiac: Positive: Reg Rate and Rhythm, S1/S2 Lungs: Positive: Ventilated Respirations Neuro: Positive: Other (intubated) Abdomen: Positive: Soft, Active Bowel Sounds Skin: Negative: Rash Extremities: Present: upper extr. pulses, lower extr. pulses. Absent: edema - Labs and Meds CBC 11/02/20 Range/Units 05:37 Hgb 9.8 L (11.8-15.2) gm/dl Hct 29.5 L (35.5-45.6) % Comprehensive Metabolic Panel 11/02/20 Range/Units 05:37 Sodium 143 (137-145) mmol/L Potassium 4.3 (3.6-5.0) mmol/L Chloride 98.8 (98-107) mmol/L Carbon Dioxide 37 H (22-30) mmol/L BUN 28 H (9-20) mg/dL Creatinine 1.2 (0.8-1.3) mg/dL Glucose 106 H (75-100) mg/dL Calcium 9.1 (8.4-10.2) mg/dL - Imaging and Cardiology EKG: report reviewed, image reviewed Echo: report reviewed (10/10/2020 - mod LVH, EF 55-60%, mild diastolic dysfunction) - Telemetry EKG Rhythm: Sinus Rhythm - EKG Sinus rhythms and dysrhythmias: sinus rhythm Repolarization changes or abnormalities: ST suggestive of injury, Q-T interval prolongation - Allied health notes Allied health notes reviewed: nursing
--- NOTE | 2020-11-02 15:54 | Progress Note ---
<JOIJOISee - Last Filed: 11/02/20 15:52> Assessment and Plan Assessment and plan: This is a 55-year-old male with hypertension, asthma, obesity who was admitted on 10/10 after cardiac arrest x2 (supposedly after COVID-19 vaccine injection), sepsis, right-sided pneumonia, NSTEMI type II, acute heart failure, acute hypoxic respiratory failure, acute kidney injury and anoxic brain injury. Sepsis s/p multiple Cardiac Arrests S/p right-sided pneumonia MRSA in tracheal aspirate NSTEMI type II Acute heart failure Afib/Aflutter Leukocytosis Acute hypoxic respiratory failure Acute kidney injury (improved) Transaminitis HTN Obesity -Infectious disease, CCM, GI, nephrology, cardiology, surgery consulted, appreciate recommendations -Antibiotic therapy -10/18 recultured (blood/sputum/nasal discharge and urinalysis), tracheal aspirate with MRSA -S/p Linezolid -Continue antihypertensive regimen (changed to p.o.), titrate as needed -s/p IV amiodarone for A. fib/a flutter now on p.o. beta-shital -Trend CBC, BMP, LFT -trach/peg 10/27 -Resume SBT as tolerated -Avoid nephrotoxic medications, strict intake and output, renal ultrasound shows no obstruction -10/10 echocardiogram shows left internal systolic function normal, moderate concentric left ventricle hypertrophy, mild to side diastolic dysfunction, LVEF 55 to 60% with no pericardial effusion -Bilateral Doppler ultrasound negative for DVT/SVT which shows bilateral popliteal cysts -MRI Brain shows restricted diffusion and increased T2 signal cerebral cortex which can be seen in the setting of anoxic brain injury and/ or status epilepticus. -Repeat EEG shows significant generalized slowing compatible with to moderate severe diffuse neuropathy recently compatible with anoxic/ischemic encephalopathy -s/p D5W at 50ml/hr x 1 liter, currently on tube feedings and tolerating GI/DVT prophylaxis: SCDs to bilateral lower extremities while in bed, PPI, Hepar in subq Dispo: ICU/ possible LTACH The high probability of a clinically significant, sudden or life threatening deterioration of the [multi] system(s) required my full and direct attention, intervention and personal management. The aggregate critical care time was [35] minutes. This time is in addition to time spent performing reported procedures but includes the following: [x] Data Review and interpretation [x] Patient assessment and monitoring of vital signs [x] Documentation [x] Medication orders and management History Interval history: This is a 55-year-old male with hypertension, asthma, obesity in the emergency by presented to the emergency department on 10/10 after receiving a Covid vaccine being found unresponsive in his car in the emergency room bay with no pulse and ACLS protocol was initiated from his car to emergency room #21 where it was continued. Patient was intubated after ROSC was achieved and a central line was placed and the patient was initiated on pressors. In the emergency room patient seems to have seizure-like activity and then collapsed and was unresponsive with no palpable pulse and ACLS was again initiated patient with achievement of ROSC. Patient again coded with ACLS protocol in the CT room. Upon arrival to the ICU patient again coded and ROSC was achieved and he was placed on epinephrine, Lasix, heparin and sodium bicarbonate drip and sedated with propofol. An NG tube was placed, A-line was placed. Patient was admitted to the hospitalist service with consult to [facility], nephrology, infectious disease and cardiology. 10/11: Patient COVID-19 PCR is pending and he remains on mechanical ventilation, examination on assist control 400/30/12/0.95. Patient is scheduled for an echocardiogram and we will obtain bilateral lower extremity Doppler ultrasound given elevated D-dimer. Patient was supposed to have a CTA chest when he coded yesterday. We will begin trickle feeding. This morning patient was on a heparin drip and was noted to have bloody drainage from his NG tube. Heparin drip was discontinued. 10/12: Patient remains on propofol and Lasix drip at the time my examination and he is on assist control 400/25/12/0.60. Patient is hypokalemic this morning which was repleted. Nephrology discontinued Lasix drip and Diamox. Patient is hypertensive and has been started on hydralazine and beta-shital IV. He has been titrated off his vasopressors since yesterday. Vancomycin discontinued. Patient is currently on cefepime and azithromycin. 10/13: Sedation vacation attempted today and patient was not responsive to verbal or painful stimuli, does not track or focus or follow commands. This morning the patient has some respiratory alkalosis on ABG, hypernatremia and metabolic a lkalosis on BMP. His kidney functions has improved slightly. Patient still has leukocytosis and infectious disease was like to continue antibiotic therapy. GI evaluated the patient yesterday and started the patient on PPI does not plan to scope at this time. At the time my examination patient assist-control 400/20/12/0.40 and sedated on propofol at 20. 4/2: GI has recommended a CT abdomen since there is increased output from OG tube and an MRI brain without contrast has been ordered per neurology recommendations. EEG is pending and the patient has been started on Keppra per neurology.. Nutrition has been consulted for initiation of parenteral nutrition. Patient remains sedated with propofol and his hypernatremia, leukocytosis, acute kidney injury and metabolic alkalosis is improving. Patient has hypokalemia today which was repleted. At the time of my examination patient was on assist control 400/14/10/0.40 and CCM has dropped his rate to 12 and PEEP to 8. We have labs ordered for a.m. He was given a clonidine patch given persistent hypertension and he remains on D5 water per nephrology. 3: This morning patient was started to have a low-grade fever and he will continue antibiotic therapy per infectious disease. He will remove Tuttle catheter today and place a condom cath. Patient's renal function is worsening with a BUN/creatinine of 57/2.4 today and he has hyperphosphatemia at 5.2. This morning the time my examination patient is sedated on fentanyl and has TPN infusing. He is on assist control 400/12/8/0.35. Per GI we will start trial of tube feedings initiation has been reconsulted for orders. 10/18: Patient was febrile overnight and infectious disease has recultured (blood/sputum/right nostril culture) and sent in urinalysis. Cefepime was extended due to high fever and was started on vancomycin. Tube feeding is at goal and we will discontinue his parenteral nutrition. Patient is unable to obtain his MRI due to increased hypoxia and nasal secretions. He will be started on CPAP trials today. This time I examination patient was sedated on fe ntanyl and had PPN running at 42. His renal function tests have worsened and now has hyperchloremia. Hypernatremia has resolved. 10/19: Patient's T-max was 100.2 and he was pancultured yesterday, remains on antibiotic therapy and still has copious drainage from his nostrils. Patient still has leukocytosis however his/creatinine improved slightly to 3.1 from 3.3. Patient's urinalysis from yesterday shows pyuria. Patient's tracheal aspirate from yesterday grew Staph aureus. Patient is on cefepime and vancomycin. 10/20: This morning at the time my examination patient was CPAP trial of 10/6 and his T-max was 100.9. Patient sedated on fentanyl at 2 just received IV push fentanyl for tachycardia. Today his creatinine is 2.8 from 3.1 yesterday. Infectious disease has stopped cefepime and vancomycin and started linezolid and MRSA PCR is pending. Today removed his NG tube and replaced it with OG tube. We will keep the patient normal saline at 75 mL's per hour for 3 L. Patient developed A. fib/a flutter overnight and cardiology has increased his Lopressor and IV amiodarone. We requested neurology evaluation today. 10/21: Cardiology we will increase Lopressor to 3 times daily and discontinue his amiodarone drip. Infectious disease would like a sinus CT when feasible however patient did have a moment of desatting earlier this week when we attempted MRI brain. And again yesterday when we attempted a "trial run" with positioning at bedside Patient is on linezolid for 10 days per ID. 10/22/20; patient was seen and evaluated this morning, patient had low-grade fever overnight. Patient is on Lopressor per cardiology recommendation. Patient did not follow commands, no improvement in mental status. Evaluated by neurology yesterday and neurology once MRI or CAT scan but cannot be done because patient desats when he lies flat. Patient is on linezolid per ID recommendation. Continue NG tube feeding. Continue with Keppra. Patient is on assist control with PEEP of 6. Management plan was discussed with his yesterday. 10/23/2020; patient is on Zyvox for positive MRSA from tracheal aspirate and nasal secretion culture. Patient's mentation did not improve and does not follow commands. He was reevaluated by neurology and recommend MRI once patient is able to tolerate. MRI could not be done, CT scan could not be done because the patient could not lie flat. Clinically patient looks like she has anoxic encephalopathy. Patient is on NG tube feeding and on mechanical ventilation. Patient is on Keppra. Management plan was discussed with his . 10/24: This morning the patient is on AC TV 400,R 16, Peep 6 and FiO2 of 30% and sedated on 1mcg of Fentayl. He is hypernatremic and his kidney function tests have slightly improved. RN will attempt to obtain MRI Brain today since the patient was able to tolerate a "trial run" of being flat. [facility] plans to resume CPAP trials once MRI obtained. 10/25: This morning the time of examination patient was on assist control tidal volume 400, rate 16, PEEP 6, FiO2 30% and he is currently on CPAP. His MRI brain finding is consistent with status epilepticus or anoxic brain injury. Patient is EEG pending. No acute overnight events reported. 10/26: Patient has been on a CPAP trial 14/6 which she has been tolerating. Surgery was consulted for trach/PEG. Patient's hypernatremia and hyperchloremia slightly better as well as his kidney functions. He has received cardiac clearance for his trach and PEG. No acute events reported overnight. 10/27: At the time my examination patient was on CPAP trial 15/6 and 30% FiO2. Patient's electrolyte abnormalities were improving and sources kidney function. His T-max overnight was 99.3 and he remains on linezolid. No acute events reported overnight. 10/28: Yesterday patient had a trach and PEG placed. Patient remains n.p.o. as he has not been cleared by surgery to resume p.o. intake. Today he has slight leukocytosis which is likely reactive, hyponatremia, metabolic alkalosis however his kidney function continues to improve. No acute events overnight. 10/29: Plan to start tube feeding today, patient remains on mechanical ventilation with trach tube. Remains comatose without any change in mental status. Called and updated. 10/30: Vitals stable, patient remains on trach tube with ventilator. Tolerating tube feeding, otherwise clinically unchanged. Continue to provide supportive care and wean off from vent as tolerated. 10/31: No acute events reported overnight. Patient is CPAP at the time my examination however he will be tried on trach collar and we will obtain an ABG within 2 hours. 11/01. Patient is on a trach collar at 35% FiO2, he was reported, patient received Lasix and will obtain an ABG at 2100. dr. Torres updated his and his mother is at bedside visiting him. 11/02. Patient was rested on assist control due to "tube feedings" endotracheal tube however CXR looks mild atelectasis rather than pneumonia. [facility] has given t he patient another dose of Lasix and will obtain a CXR in the a.m. Patient remains with low-grade fever and we will resume daily SBT as tolerated. We will obtain a.m. labs and resume tube feedings. Hospitalist Physical - Constitutional Vitals: Temp Pulse Resp BP Pulse Ox 98.8 F 84 20 168/98 98 11/02/20 12:28 11/02/20 14:24 11/02/20 12:00 11/02/20 14:24 11/02/20 13:09 General appearance: Present: no acute distress, well-nourished, other (opens eyes spontaneously, does not focus or track) - EENT Eyes: Present: PERRL ENT: poor dentition - Neck Neck: Present: normal ROM - Respiratory Respiratory effort: normal Respiratory: bilateral: diminished, rhonchi - Cardiovascular Rhythm: regular Heart Sounds: Present: S1 & S2. Absent: systolic murmur, diastolic murmur - Extremities Extremities: no ischemia, pulses intact, pulses symmetrical, normal temperature, normal color Peripheral Pulses: within normal limits - Abdominal General gastrointestinal: soft, non-tender, non-distended, normal bowel sounds - Integumentary Integumentary: Present: warm, dry - Psychiatric Psychiatric: other (Does not track/focus, does not follow commands) - Neurologic Neurologic: moves all extremities (Spontaneously) HEART Score - HEART Score EKG: Non-specific Age: 45-65 Troponin: Troponin T 0.125 ng/mL (0.00-0.029) H* D 10/12/20 04:00 Troponin: 1-3x normal limit - Critical Actions Critical Actions: 4-6 pts:12-16.6% risk of adverse cardiac event. Should be admitted Results - Labs CBC & Chem 7: 11/02/20 05:37 11/02/20 05:37 Labs: Laboratory Last Values WBC 11.3 K/mm3 (4.5-11.0) H 11/01/20 04:09 RBC 3.05 M/mm3 (3.65-5.03) L 11/01/20 04:09 Hgb 9.8 gm/dl (11.8-15.2) L 11/02/20 05:37 Hct 29.5 % (35.5-45.6) L 11/02/20 05:37 MCV 90 fl (84-94) 11/01/20 04:09 MCH 29 pg (28-32) 11/01/20 04:09 MCHC 33 % (32-34) 11/01/20 04:09 RDW 14.7 % (13.2-15.2) 11/01/20 04:09 Plt Count 217 K/mm3 (140-440) 11/01/20 04:09 Lymph % (Auto) 4.2 % (13.4-35.0) L 10/19/20 04:55 [place] % (Auto) 11.9 % (0.0-7.3) H 10/19/20 04:55 Eos % (Auto) 1.6 % (0.0-4.3) 10/19/20 04:55 Baso % (Auto) 0.3 % (0.0-1.8) 10/19/20 04:55 Lymph # (Auto) 0.6 K/mm3 (1.2-5.4) L 10/19/20 04:55 [place] # (Auto) 1.8 K/mm3 (0.0-0.8) H 10/19/20 04:55 Eos # (Auto) 0.2 K/mm3 (0.0-0.4) 10/19/20 04:55 Baso # (Auto) 0.1 K/mm3 (0.0-0.1) 10/19/20 04:55 Add Manual Diff Complete 10/10/20 18:18 Total Counted 100 10/10/20 18:18 Seg Neutrophils % 82.0 % (40.0-70.0) H 10/19/20 04:55 Seg Neuts % (Manual) 60.0 % (40.0-70.0) 10/10/20 18:18 Band Neutrophils % 27.0 % 10/10/20 18:18 Lymphocytes % (Manual) 4.0 % (13.4-35.0) L 10/10/20 18:18 Monocytes % (Manual) 9.0 % (0.0-7.3) H 10/10/20 18:18 Eosinophils % (Manual) 4.0 % (0.0-4.3) 10/10/20 10:48 Metamyelocytes % 1.0 % 10/10/20 10:48 Nucleated RBC % Not Reportable 10/10/20 18:18 Seg Neutrophils # 12.4 K/mm3 (1.8-7.7) H 10/19/20 04:55 Seg Neutrophils # Man 13.8 K/mm3 (1.8-7.7) H 10/10/20 18:18 Band Neutrophils # 6.2 K/mm3 10/10/20 18:18 Lymphocytes # (Manual) 0.9 K/mm3 (1.2-5.4) L 10/10/20 18:18 Abs React Lymphs (Man) 0.0 K/mm3 10/10/20 18:18 Monocytes # (Manual) 2.1 K/mm3 (0.0-0.8) H 10/10/20 18:18 Eosinophils # (Manual) 0.0 K/mm3 (0.0-0.4) 10/10/20 18:18 Basophils # (Manual) 0.0 K/mm3 (0.0-0.1) 10/10/20 18:18 Metamyelocytes # 0.0 K/mm3 10/10/20 18:18 Myelocytes # 0.0 K/mm3 10/10/20 18:18 Promyelocytes # 0.0 K/mm3 10/10/20 18:18 Blast Cells # 0.0 K/mm3 10/10/20 18:18 WBC Morphology Not Reportable 10/10/20 18:18 Hypersegmented Neuts Not Reportable 10/10/20 18:18 Hyposegmented Neuts Not Reportable 10/10/20 18:18 Hypogranular Neuts Not Reportable 10/10/20 18:18 Smudge Cells Not Reportable 10/10/20 18:18 Toxic Granulation Not Reportable 10/10/20 18:18 Toxic Vacuolation Not Reportable 10/10/20 18:18 Dohle Bodies Not Reportable 10/10/20 18:18 Pelger-Huet Anomaly Not Reportable 10/10/20 18:18 Dionicio Rods Not Reportable 10/10/20 18:18 Platelet Estimate Consistent w auto 10/10/20 18:18 Clumped Platelets Not Reportable 10/10/20 18:18 Plt Clumps, EDTA Not Reportable 10/10/20 18:18 Large Platelets Rare 10/10/20 18:18 Giant Platelets Rare 10/10/20 18:18 Platelet Satelliting Not Reportable 10/10/20 18:18 Plt Morphology Comment Not Reportable 10/10/20 18:18 RBC Morphology Not Reportable 10/10/20 18:18 Dimorphic RBCs Not Reportable 10/10/20 18:18 Polychromasia Not Reportable 10/10/20 18:18 Hypochromasia Not Reportable 10/10/20 18:18 Poikilocytosis Not Reportable 10/10/20 18:18 Anisocytosis Not Reportable 10/10/20 18:18 Microcytosis Not Reportable 10/10/20 18:18 Macrocytosis Not Reportable 10/10/20 18:18 Spherocytes Not Reportable 10/10/20 18:18 Pappenheimer Bodies Not Reportable 10/10/20 18:18 Sickle Cells Not Reportable 10/10/20 18:18 Target Cells Not Reportable 10/10/20 18:18 Tear Drop Cells Not Reportable 10/10/20 18:18 Ovalocytes Not Reportable 10/10/20 18:18 Helmet Cells Not Reportable 10/10/20 18:18 [place] Bodies Not Reportable 10/10/20 18:18 [place] Rings Not Reportable 10/10/20 18:18 [place] Cells Not Reportable 10/10/20 18:18 Bite Cells Not Reportable 10/10/20 18:18 Crenated Cell Not Reportable 10/10/20 18:18 Elliptocytes Not Reportable 10/10/20 18:18 Acanthocytes (Spur) Not Reportable 10/10/20 18:18 Rouleaux Not Reportable 10/10/20 18:18 Hemoglobin C Crystals Not Reportable 10/10/20 18:18 Schistocytes Not Reportable 10/10/20 18:18 Malaria parasites Not Reportable 10/10/20 18:18 Mauricio Bodies Not Reportable 10/10/20 18:18 Hem Pathologist Commnt No 10/10/20 18:18 PT 13.5 Sec. (12.2-14.9) 10/28/20 07:00 INR 1.05 (0.87-1.13) 10/28/20 07:00 APTT 26.9 Sec. (24.2-36.6) 10/10/20 18:18 D-Dimer 679.5 ng/mlDDU (0-234) H 10/10/20 10:48 Heparin Anti-Xa Level 0.22 U.I./ml (0.3-0.7) L 10/11/20 08:35 ABG pH 7.426 (7.320-7.450) 11/02/20 03:14 POC ABG pCO2 58.9 mmHg (32.0-48.0) H 11/02/20 03:14 ABG pCO2 55.5 mm Hg 10/16/20 05:10 POC ABG pO2 79.9 mmHg (83-108) L 11/02/20 03:14 ABG pO2 104.5 mm Hg (80.0-90.0) H 10/16/20 05:10 POC ABG HCO3 37.9 11/02/20 03:14 ABG HCO3 35.1 mmol/L (20.0-26.0) H 10/16/20 05:10 ABG O2 Saturation 95.9 (0-100) 11/02/20 03:14 ABG O2 Content 10.8 (0.0-44) 10/16/20 05:10 POC ABG Base Excess 11.6 11/02/20 03:14 ABG Base Excess 9.5 mmol/L (-2.0-3.0) H 10/16/20 05:10 ABG Hemoglobin 10.6 (12.0-17.5) L 11/02/20 03:14 ABG Oxyhemoglobin 90.7 (94-98) L 10/31/20 16:17 ABG Carboxyhemoglobin 1.9 % (0.0-5.0) 10/16/20 05:10 ABG Methemoglobin 0.3 (0.0-1.5) 10/31/20 16:17 ABG Sodium 137.8 mmol/L (136.0-145.0) 11/02/20 03:14 ABG Potassium 4.1 mmol/L (3.40-4.50) 11/02/20 03:14 ABG Chloride 101.0 mmol/L (98-107) 11/02/20 03:14 ABG Glucose 110 mg/dL (65-95) H 11/02/20 03:14 VBG pH 6.870 (7.320-7.420) L* 10/10/20 10:48 Oxyhemoglobin 95.3 % (95.0-99.0) 10/16/20 05:10 Carboxyhemoglobin 1.0 (0.5-1.5) 10/31/20 16:17 FiO2 35 % 10/16/20 05:10 FiO2 % 50 11/02/20 03:14 Sodium 143 mmol/L (137-145) 11/02/20 05:37 Potassium 4.3 mmol/L (3.6-5.0) 11/02/20 05:37 Chloride 98.8 mmol/L (98-107) 11/02/20 05:37 Carbon Dioxide 37 mmol/L (22-30) H 11/02/20 05:37 Anion Gap 12 mmol/L 11/02/20 05:37 BUN 28 mg/dL (9-20) H 11/02/20 05:37 Creatinine 1.2 mg/dL (0.8-1.3) 11/02/20 05:37 Estimated GFR > 60 ml/min 11/02/20 05:37 BUN/Creatinine Ratio 23 % 11/02/20 05:37 Glucose 106 mg/dL (75-100) H 11/02/20 05:37 POC Glucose 99 mg/dL (70-105) 11/02/20 11:42 Hemoglobin A1c 6.0 % (4-6) 10/11/20 02:00 Lactic Acid 1.10 mmol/L (0.7-2.0) 10/13/20 04:52 Calcium 9.1 mg/dL (8.4-10.2) 11/02/20 05:37 Phosphorus 5.20 mg/dL (2.5-4.5) H D 10/17/20 03:32 Magnesium 2.30 mg/dL (1.7-2.3) 10/17/20 03:32 Ferritin 81.4 ng/mL (30.0-300.0) 10/10/20 10:48 Total Bilirubin 1.70 mg/dL (0.1-1.2) H 10/18/20 03:27 AST 37 units/L (5-40) 10/18/20 03:27 ALT 32 units/L (7-56) 10/18/20 03:27 Alkaline Phosphatase 97 units/L (35-129) 10/18/20 03:27 Ammonia 214.0 umol/L (25-60) H 10/10/20 10:46 Lactate Dehydrogenase 386 units/L (91-180) H 10/10/20 10:48 Total Creatine Kinase 1192 units/L (55-170) H 10/10/20 18:18 CK-MB (CK-2) 21.7 ng/mL (0.0-4.0) H 10/10/20 18:18 CK-MB (CK-2) Rel Index 1.8 (0-4) 10/10/20 18:18 Troponin T 0.125 ng/mL (0.00-0.029) H* D 10/12/20 04:00 C-Reactive Protein 0.90 mg/dL (0.00-1.30) 10/10/20 10:48 NT-Pro-B Natriuret Pep 1187 pg/mL (0-900) H 10/10/20 10:46 Total Protein 6.3 g/dL (6.3-8.2) 10/18/20 03:27 Albumin 3.1 g/dL (3.9-5) L 10/18/20 03:27 Albumin/Globulin Ratio 1.0 % 10/18/20 03:27 Triglycerides 278 mg/dL (2-149) H 10/13/20 04:52 Cholesterol 138 mg/dL (50-199) 10/10/20 18:18 LDL Cholesterol Direct 76 mg/dL (50-130) 10/10/20 18:18 HDL Cholesterol 49 mg/dL (40-59) 10/10/20 18:18 Cholesterol/HDL Ratio 2.81 % 10/10/20 18:18 Procalcitonin 4.98 ng/mL (<0.15) 10/15/20 04:12 TSH 6.260 mlU/mL (0.270-4.200) H 10/10/20 10:46 Arterial Blood Glucose 110 mg/dL (65-95) H 11/02/20 03:14 Arterial Blood Ionized Calcium 4.6 mg/dL (4.6-5.3) 11/02/20 03:14 Urine Color Angelica (Yellow) 10/18/20 Unknown Urine Turbidity Cloudy (Clear) 10/18/20 Unknown Urine pH 5.0 (5.0-7.0) 10/18/20 Unknown Ur Specific [place] 1.017 (1.003-1.030) 10/18/20 Unknown Urine Protein 100 mg/dl mg/dL (Negative) 10/18/20 Unknown Urine Glucose (UA) Neg mg/dL (Negative) 10/18/20 Unknown Urine Ketones Neg mg/dL (Negative) 10/18/20 Unknown Urine Blood Lg (Negative) 10/18/20 Unknown Urine Nitrite Neg (Negative) 10/18/20 Unknown Urine Bilirubin Neg (Negative) 10/18/20 Unknown Urine Urobilinogen 4.0 mg/dL (<2.0) 10/18/20 Unknown Ur Leukocyte Esterase Neg (Negative) 10/18/20 Unknown Urine WBC (Auto) 115.0 /HPF (0.0-6.0) H 10/18/20 Unknown Urine RBC (Auto) 98.0 /HPF (0.0-6.0) 10/18/20 Unknown U Epithel Cells (Auto) 2.0 /HPF (0-13.0) 10/18/20 Unknown Urine WBC Clumps 3+ /HPF 10/18/20 Unknown Urine Mucus Few /HPF 10/11/20 13:30 Urine Eosinophils None seen (None Seen) 10/11/20 13:30 Urine Creatinine 93.7 mg/dL (0.1-20.0) H 10/19/20 13:14 Urine Sodium 25 mmol/L 10/19/20 13:14 Urine Urea Nitrogen 845 10/19/20 13:14 Nasal Screen MRSA (PCR) Positive (Negative) 10/20/20 13:30 Random Vancomycin 5.8 ug/mL (0-40.0) 10/21/20 06:30 Urine Opiates Screen Negative 10/10/20 10:50 Urine Methadone Screen Negative 10/10/20 10:50 Ur Barbiturates Screen Negative 10/10/20 10:50 Ur Phencyclidine Scrn Negative 10/10/20 10:50 Ur Amphetamines Screen Negative 10/10/20 10:50 U Benzodiazepines Scrn Negative 10/10/20 10:50 Urine Cocaine Screen Negative 10/10/20 10:50 U Marijuana (THC) Screen Positive 10/10/20 10:50 Drugs of Abuse Note Disclamer 10/10/20 10:50 Plasma/Serum Alcohol < 0.01 % (0-0.07) 10/10/20 10:48 Coronavirus (PCR) Negative (Negative) 10/11/20 Unknown Blood Type AB POSITIVE 10/10/20 10:48 Antibody Screen Negative 10/10/20 10:48 Tuttle/IV: Voiding Method Incontinent Active Medications - Current Medications Current Medications: Generic Name Dose Route Start Last Admin Trade Name Freq PRN Reason Stop Dose Admin Acetaminophen 650 mg 10/10/20 21:51 10/20/20 09:11 Acetaminophen 325 Mg Tab PO 650 mg Q4H PRN Administration Pain MILD(1-3)/Fever >100.5/SALVADOR Acetaminophen 650 mg 10/11/20 11:24 10/17/20 17:16 Acetaminophen 650 Mg Rect Supp MT 650 mg Q6H PRN Administration Fever >101 Albuterol 2.5 mg 10/11/20 13:12 Albuterol 2.5 Mg/3 Ml Nebu IH Q6HRT PRN Shortness Of Breath Amlodipine Besylate 10 mg 10/25/20 13:00 11/02/20 09:55 Amlodipine 10 Mg Tab PO 10 mg QDAY PEPITO Administration Lipase/Protease/Amylase 1 each 10/10/20 22:18 Lipase 10,500/Protease 25,000/Amylase 43,750 (Units) Dr Santana FEEDTUBE PRN PRN For Clogged Feeding Tube Clonidine HCl 0.3 mg 10/14/20 15:00 10/28/20 14:58 Clonidine Tts 0.3 Mg/24 Hr Patch TD 0.3 mg Fr PEPITO Administration Docusate Sodium 100 mg 10/16/20 22:00 11/02/20 09:55 Docusate Sodium 100 Mg/10 Ml Oral Liqd PO 100 mg BID PEPITO Administration Fentanyl 25 mcg 10/31/20 13:00 11/02/20 08:50 Fentanyl 100 Mcg/2 Ml Inj IV 25 mcg Q2H PRN Administration ANALGESIA Fentanyl 25 mcg 10/31/20 14:00 10/31/20 17:16 Fentanyl 25 Mcg/Hr Patch 72hr TD Not Given Q3D PEPITO Furosemide 20 mg 11/02/20 14:00 Furosemide 20 Mg/2 Ml Inj IV ONCE PEPITO Glycopyrrolate 2 mg 10/31/20 09:30 11/02/20 12:27 Glycopyrrolate 2 Mg Tab PO 2 mg Q6HR [facility] Administration Heparin Sodium (Porcine) 5,000 unit 10/11/20 22:00 11/02/20 09:56 Heparin 5,000 Unit/1 Ml Vial SUB-Q 5,000 unit Q12HR [facility] Administration Hydralazine HCl 100 mg 10/24/20 09:30 11/02/20 14:24 Hydralazine 25 Mg Tab PO 100 mg Q8HR PEPITO Administration Hydralazine HCl 10 mg 11/02/20 08:46 Hydralazine 20 Mg/1 Ml Inj IV Q6H PRN Hypertension Hydromorphone HCl 0.5 mg 11/01/20 20:55 11/02/20 06:03 Hydromorphone 1 Mg/1 Ml Inj IV 0.5 mg Q3H PRN Administration Pain , Severe (7-10) Hydrophilic Ointment 1 applic 10/10/20 10:34 Lip Therapy Vaseline TP Q2HR PRN Dry Lips Lansoprazole 30 mg 10/24/20 10:00 11/02/20 09:55 Lansoprazole 30 Mg Solutab FEEDTUBE 30 mg BID [facility] Administration Levetiracetam 500 mg 10/31/20 10:00 11/02/20 09:26 Levetiracetam 500 Mg/5 Ml Oral Liqd PO 500 mg BID [facility] Administration Metoclopramide HCl 10 mg 10/10/20 21:51 Metoclopramide 10 Mg/2 Ml Inj IV Q6H PRN Nausea And Vomiting Metoprolol Tartrate 100 mg 10/21/20 14:00 11/02/20 14:24 Metoprolol Tartrate 50 Mg Tab PO 100 mg TID [facility] Administration Multi-Ingred Cream/Lotion/Oil/Oint 1 applic 10/10/20 10:34 Mineral Oil/Petrolatum, White Ophth Oint 3.5 Gm OU Q4HR PRN Dry Eye(s) Ondansetron HCl 4 mg 10/10/20 21:51 11/01/20 20:48 Ondansetron 4 Mg/2 Ml Inj IV 4 mg Q3H PRN Administration Nausea And Vomiting Polyethylene Glycol 17 gm 10/17/20 10:00 11/02/20 09:55 Polyethylene Glycol 3350 17 Gm Powder PO 17 gm QDAY PEPITO Administration Quetiapine Fumarate 100 mg 11/02/20 10:00 11/02/20 09:55 Quetiapine 100 Mg Tab PO 100 mg DAILY PEPITO Administration Quetiapine Fumarate 150 mg 11/01/20 22:00 11/01/20 23:19 Quetiapine 100 Mg Tab PO Not Given QHS PEPITO Scopolamine 1 each 10/17/20 10:00 11/01/20 09:42 Scopolamine Transdermal Patch 72 Hr TD 1 each Q3D PEPITO Administration Simple Syrup 15 ml 10/10/20 22:18 Simple Syrup 15 Ml FEEDTUBE PRN PRN Hypoglycemia Simple Syrup 30 ml 10/10/20 22:18 Simple Syrup 15 Ml FEEDTUBE PRN PRN Hypoglycemia Sodium Bicarbonate 325 mg 10/10/20 22:18 Sodium Bicarbonate 325 Mg Tab FEEDTUBE PRN PRN For Clogged Feeding Tube Sodium Chloride 10 ml 10/10/20 22:00 11/02/20 09:57 Sodium Chloride 0.9% 10 Ml Flush Syringe IV 10 ml BID PEPITO Administration Sodium Chloride 10 ml 10/10/20 21:51 10/21/20 09:56 Sodium Chloride 0.9% 10 Ml Flush Syringe IV 10 ml PRN PRN Administration LINE FLUSH Nutrition/Malnutrition Assess - Dietary Evaluation Nutrition/Malnutrition Findings: Nutrition Notes Start: 10/11/20 08:38 Freq: Status: Active Protocol: Document 11/02/20 13:05 CW (Rec: 11/02/20 13:12 CW [id number]) Nutrition Notes Initial or Follow up Reassessment Current Diagnosis Acute Kidney Injury,Sepsis, Hypertension,Heart Failure, Respiratory Failure Other Pertinent Diagnosis GIB, pneu, MRSA TX, pulmonary edema Current Diet Promote at 80 ml/hr Labs/Tests BUN 28 Pertinent Medications Zofran Lasix Height 6 ft Weight 131.9 kg [place] Body Weight (kg) 80.90 BMI 39.4 Weight change and time frame weight change d/t fluid overload Weight Status Morbidly Obese Subjective/Other Information F/U for TF tolerance. TF was held the night before d/t emesis but has been restarted and has been tolerated. Pt has been place back on mechanical vent. Pt now has DTI to heel. Percent of energy/protein needs met: 100%/74% Burn Absent Trauma Absent Difficulty In Swallowing Skin Integrity/Comment DTI to heel Current % PO Negligible Minimum of two criteria No Fluid Accumulation Mild (non-severe) #1 Nutrition Diagnosis Inadequate oral intake Diagnosis Progress(for reassessment Continues documentation) Is patient on ventilator? Yes Is Patient Ambulatory and/or Out of Bed No REE-(Murphy-St. Jeor-confined to bed) 2645.904 Kcal/Kg value to use for calculation 15 Approximate Energy Requirements Using 1979 kcal/Kg Calculation Used for Recommendations Kcal/kg Additional Notes protein needs: >162g (>2 kgIBW ) fluid needs: 1 ml/kcal or per MD Nutrition Intervention Change Diet Order: Continue Nutrition Support: Promote at 80 ml/hr with a free water flush of 200 ml q4hr for hypernatremia. Once hypernatremia resolved, resume flush of 50 ml q4h. Kcal 1,920 Protein (gm) 120 Fluid (mL) 1,611 Goal #1 Tolerate TF Goal #2 Meet at least 70% of protein and 100% of kcal needs via TF Anticipated Discharge Needs: TF Follow-Up By: 11/04/20 Additional Comments F/U for TF tolerance, vent status <DAVID TORRES R - Last Filed: 11/02/20 22:20> Assessment and Plan Assessment and plan: I saw and evaluated the patient. I agree with the findings and the plan of care as documented in the Nurse Practitioner's~note. Hospitalist Physical - Constitutional Vitals: Temp Pulse Resp BP Pulse Ox 100.6 F H 93 H 23 106/51 96 11/02/20 20:00 11/02/20 21:40 11/02/20 21:30 11/02/20 21:40 11/02/20 21:00 HEART Score - HEART Score Troponin: Troponin T 0.125 ng/mL (0.00-0.029) H* D 10/12/20 04:00 Results - Labs CBC & Chem 7: 11/02/20 05:37 11/02/20 05:37 Labs: Laboratory Last Values WBC 11.3 K/mm3 (4.5-11.0) H 11/01/20 04:09 RBC 3.05 M/mm3 (3.65-5.03) L 11/01/20 04:09 Hgb 9.8 gm/dl (11.8-15.2) L 11/02/20 05:37 Hct 29.5 % (35.5-45.6) L 11/02/20 05:37 MCV 90 fl (84-94) 11/01/20 04:09 MCH 29 pg (28-32) 11/01/20 04:09 MCHC 33 % (32-34) 11/01/20 04:09 RDW 14.7 % (13.2-15.2) 11/01/20 04:09 Plt Count 217 K/mm3 (140-440) 11/01/20 04:09 Lymph % (Auto) 4.2 % (13.4-35.0) L 10/19/20 04:55 [place] % (Auto) 11.9 % (0.0-7.3) H 10/19/20 04:55 Eos % (Auto) 1.6 % (0.0-4.3) 10/19/20 04:55 Baso % (Auto) 0.3 % (0.0-1.8) 10/19/20 04:55 Lymph # (Auto) 0.6 K/mm3 (1.2-5.4) L 10/19/20 04:55 [place] # (Auto) 1.8 K/mm3 (0.0-0.8) H 10/19/20 04:55 Eos # (Auto) 0.2 K/mm3 (0.0-0.4) 10/19/20 04:55 Baso # (Auto) 0.1 K/mm3 (0.0-0.1) 10/19/20 04:55 Add Manual Diff Complete 10/10/20 18:18 Total Counted 100 10/10/20 18:18 Seg Neutrophils % 82.0 % (40.0-70.0) H 10/19/20 04:55 Seg Neuts % (Manual) 60.0 % (40.0-70.0) 10/10/20 18:18 Band Neutrophils % 27.0 % 10/10/20 18:18 Lymphocytes % (Manual) 4.0 % (13.4-35.0) L 10/10/20 18:18 Monocytes % (Manual) 9.0 % (0.0-7.3) H 10/10/20 18:18 Eosinophils % (Manual) 4.0 % (0.0-4.3) 10/10/20 10:48 Metamyelocytes % 1.0 % 10/10/20 10:48 Nucleated RBC % Not Reportable 10/10/20 18:18 Seg Neutrophils # 12.4 K/mm3 (1.8-7.7) H 10/19/20 04:55 Seg Neutrophils # Man 13.8 K/mm3 (1.8-7.7) H 10/10/20 18:18 Band Neutrophils # 6.2 K/mm3 10/10/20 18:18 Lymphocytes # (Manual) 0.9 K/mm3 (1.2-5.4) L 10/10/20 18:18 Abs React Lymphs (Man) 0.0 K/mm3 10/10/20 18:18 Monocytes # (Manual) 2.1 K/mm3 (0.0-0.8) H 10/10/20 18:18 Eosinophils # (Manual) 0.0 K/mm3 (0.0-0.4) 10/10/20 18:18 Basophils # (Manual) 0.0 K/mm3 (0.0-0.1) 10/10/20 18:18 Metamyelocytes # 0.0 K/mm3 10/10/20 18:18 Myelocytes # 0.0 K/mm3 10/10/20 18:18 Promyelocytes # 0.0 K/mm3 10/10/20 18:18 Blast Cells # 0.0 K/mm3 10/10/20 18:18 WBC Morphology Not Reportable 10/10/20 18:18 Hypersegmented Neuts Not Reportable 10/10/20 18:18 Hyposegmented Neuts Not Reportable 10/10/20 18:18 Hypogranular Neuts Not Reportable 10/10/20 18:18 Smudge Cells Not Reportable 10/10/20 18:18 Toxic Granulation Not Reportable 10/10/20 18:18 Toxic Vacuolation Not Reportable 10/10/20 18:18 Dohle Bodies Not Reportable 10/10/20 18:18 Pelger-Huet Anomaly Not Reportable 10/10/20 18:18 Dionicio Rods Not Reportable 10/10/20 18:18 Platelet Estimate Consistent w auto 10/10/20 18:18 Clumped Platelets Not Reportable 10/10/20 18:18 Plt Clumps, EDTA Not Reportable 10/10/20 18:18 Large Platelets Rare 10/10/20 18:18 Giant Platelets Rare 10/10/20 18:18 Platelet Satelliting Not Reportable 10/10/20 18:18 Plt Morphology Comment Not Reportable 10/10/20 18:18 RBC Morphology Not Reportable 10/10/20 18:18 Dimorphic RBCs Not Reportable 10/10/20 18:18 Polychromasia Not Reportable 10/10/20 18:18 Hypochromasia Not Reportable 10/10/20 18:18 Poikilocytosis Not Reportable 10/10/20 18:18 Anisocytosis Not Reportable 10/10/20 18:18 Microcytosis Not Reportable 10/10/20 18:18 Macrocytosis Not Reportable 10/10/20 18:18 Spherocytes Not Reportable 10/10/20 18:18 Pappenheimer Bodies Not Reportable 10/10/20 18:18 Sickle Cells Not Reportable 10/10/20 18:18 Target Cells Not Reportable 10/10/20 18:18 Tear Drop Cells Not Reportable 10/10/20 18:18 Ovalocytes Not Reportable 10/10/20 18:18 Helmet Cells Not Reportable 10/10/20 18:18 [place] Bodies Not Reportable 10/10/20 18:18 [place] Rings Not Reportable 10/10/20 18:18 [place] Cells Not Reportable 10/10/20 18:18 Bite Cells Not Reportable 10/10/20 18:18 Crenated Cell Not Reportable 10/10/20 18:18 Elliptocytes Not Reportable 10/10/20 18:18 Acanthocytes (Spur) Not Reportable 10/10/20 18:18 Rouleaux Not Reportable 10/10/20 18:18 Hemoglobin C Crystals Not Reportable 10/10/20 18:18 Schistocytes Not Reportable 10/10/20 18:18 Malaria parasites Not Reportable 10/10/20 18:18 Mauricio Bodies Not Reportable 10/10/20 18:18 Hem Pathologist Commnt No 10/10/20 18:18 PT 13.5 Sec. (12.2-14.9) 10/28/20 07:00 INR 1.05 (0.87-1.13) 10/28/20 07:00 APTT 26.9 Sec. (24.2-36.6) 10/10/20 18:18 D-Dimer 679.5 ng/mlDDU (0-234) H 10/10/20 10:48 Heparin Anti-Xa Level 0.22 U.I./ml (0.3-0.7) L 10/11/20 08:35 ABG pH 7.426 (7.320-7.450) 11/02/20 03:14 POC ABG pCO2 58.9 mmHg (32.0-48.0) H 11/02/20 03:14 ABG pCO2 55.5 mm Hg 10/16/20 05:10 POC ABG pO2 79.9 mmHg (83-108) L 11/02/20 03:14 ABG pO2 104.5 mm Hg (80.0-90.0) H 10/16/20 05:10 POC ABG HCO3 37.9 11/02/20 03:14 ABG HCO3 35.1 mmol/L (20.0-26.0) H 10/16/20 05:10 ABG O2 Saturation 95.9 (0-100) 11/02/20 03:14 ABG O2 Content 10.8 (0.0-44) 10/16/20 05:10 POC ABG Base Excess 11.6 11/02/20 03:14 ABG Base Excess 9.5 mmol/L (-2.0-3.0) H 10/16/20 05:10 ABG Hemoglobin 10.6 (12.0-17.5) L 11/02/20 03:14 ABG Oxyhemoglobin 90.7 (94-98) L 10/31/20 16:17 ABG Carboxyhemoglobin 1.9 % (0.0-5.0) 10/16/20 05:10 ABG Methemoglobin 0.3 (0.0-1.5) 10/31/20 16:17 ABG Sodium 137.8 mmol/L (136.0-145.0) 11/02/20 03:14 ABG Potassium 4.1 mmol/L (3.40-4.50) 11/02/20 03:14 ABG Chloride 101.0 mmol/L (98-107) 11/02/20 03:14 ABG Glucose 110 mg/dL (65-95) H 11/02/20 03:14 VBG pH 6.870 (7.320-7.420) L* 10/10/20 10:48 Oxyhemoglobin 95.3 % (95.0-99.0) 10/16/20 05:10 Carboxyhemoglobin 1.0 (0.5-1.5) 10/31/20 16:17 FiO2 35 % 10/16/20 05:10 FiO2 % 50 11/02/20 03:14 Sodium 143 mmol/L (137-145) 11/02/20 05:37 Potassium 4.3 mmol/L (3.6-5.0) 11/02/20 05:37 Chloride 98.8 mmol/L (98-107) 11/02/20 05:37 Carbon Dioxide 37 mmol/L (22-30) H 11/02/20 05:37 Anion Gap 12 mmol/L 11/02/20 05:37 BUN 28 mg/dL (9-20) H 11/02/20 05:37 Creatinine 1.2 mg/dL (0.8-1.3) 11/02/20 05:37 Estimated GFR > 60 ml/min 11/02/20 05:37 BUN/Creatinine Ratio 23 % 11/02/20 05:37 Glucose 106 mg/dL (75-100) H 11/02/20 05:37 POC Glucose 99 mg/dL (70-105) 11/02/20 11:42 Hemoglobin A1c 6.0 % (4-6) 10/11/20 02:00 Lactic Acid 1.10 mmol/L (0.7-2.0) 10/13/20 04:52 Calcium 9.1 mg/dL (8.4-10.2) 11/02/20 05:37 Phosphorus 5.20 mg/dL (2.5-4.5) H D 10/17/20 03:32 Magnesium 2.30 mg/dL (1.7-2.3) 10/17/20 03:32 Ferritin 81.4 ng/mL (30.0-300.0) 10/10/20 10:48 Total Bilirubin 1.70 mg/dL (0.1-1.2) H 10/18/20 03:27 AST 37 units/L (5-40) 10/18/20 03:27 ALT 32 units/L (7-56) 10/18/20 03:27 Alkaline Phosphatase 97 units/L (35-129) 10/18/20 03:27 Ammonia 214.0 umol/L (25-60) H 10/10/20 10:46 Lactate Dehydrogenase 386 units/L (91-180) H 10/10/20 10:48 Total Creatine Kinase 1192 units/L (55-170) H 10/10/20 18:18 CK-MB (CK-2) 21.7 ng/mL (0.0-4.0) H 10/10/20 18:18 CK-MB (CK-2) Rel Index 1.8 (0-4) 10/10/20 18:18 Troponin T 0.125 ng/mL (0.00-0.029) H* D 10/12/20 04:00 C-Reactive Protein 0.90 mg/dL (0.00-1.30) 10/10/20 10:48 NT-Pro-B Natriuret Pep 1187 pg/mL (0-900) H 10/10/20 10:46 Total Protein 6.3 g/dL (6.3-8.2) 10/18/20 03:27 Albumin 3.1 g/dL (3.9-5) L 10/18/20 03:27 Albumin/Globulin Ratio 1.0 % 10/18/20 03:27 Triglycerides 278 mg/dL (2-149) H 10/13/20 04:52 Cholesterol 138 mg/dL (50-199) 10/10/20 18:18 LDL Cholesterol Direct 76 mg/dL (50-130) 10/10/20 18:18 HDL Cholesterol 49 mg/dL (40-59) 10/10/20 18:18 Cholesterol/HDL Ratio 2.81 % 10/10/20 18:18 Procalcitonin 4.98 ng/mL (<0.15) 10/15/20 04:12 TSH 6.260 mlU/mL (0.270-4.200) H 10/10/20 10:46 Arterial Blood Glucose 110 mg/dL (65-95) H 11/02/20 03:14 Arterial Blood Ionized Calcium 4.6 mg/dL (4.6-5.3) 11/02/20 03:14 Urine Color Angelica (Yellow) 10/18/20 Unknown Urine Turbidity Cloudy (Clear) 10/18/20 Unknown Urine pH 5.0 (5.0-7.0) 10/18/20 Unknown Ur Specific [place] 1.017 (1.003-1.030) 10/18/20 Unknown Urine Protein 100 mg/dl mg/dL (Negative) 10/18/20 Unknown Urine Glucose (UA) Neg mg/dL (Negative) 10/18/20 Unknown Urine Ketones Neg mg/dL (Negative) 10/18/20 Unknown Urine Blood Lg (Negative) 10/18/20 Unknown Urine Nitrite Neg (Negative) 10/18/20 Unknown Urine Bilirubin Neg (Negative) 10/18/20 Unknown Urine Urobilinogen 4.0 mg/dL (<2.0) 10/18/20 Unknown Ur Leukocyte Esterase Neg (Negative) 10/18/20 Unknown Urine WBC (Auto) 115.0 /HPF (0.0-6.0) H 10/18/20 Unknown Urine RBC (Auto) 98.0 /HPF (0.0-6.0) 10/18/20 Unknown U Epithel Cells (Auto) 2.0 /HPF (0-13.0) 10/18/20 Unknown Urine WBC Clumps 3+ /HPF 10/18/20 Unknown Urine Mucus Few /HPF 10/11/20 13:30 Urine Eosinophils None seen (None Seen) 10/11/20 13:30 Urine Creatinine 93.7 mg/dL (0.1-20.0) H 10/19/20 13:14 Urine Sodium 25 mmol/L 10/19/20 13:14 Urine Urea Nitrogen 845 10/19/20 13:14 Nasal Screen MRSA (PCR) Positive (Negative) 10/20/20 13:30 Random Vancomycin 5.8 ug/mL (0-40.0) 10/21/20 06:30 Urine Opiates Screen Negative 10/10/20 10:50 Urine Methadone Screen Negative 10/10/20 10:50 Ur Barbiturates Screen Negative 10/10/20 10:50 Ur Phencyclidine Scrn Negative 10/10/20 10:50 Ur Amphetamines Screen Negative 10/10/20 10:50 U Benzodiazepines Scrn Negative 10/10/20 10:50 Urine Cocaine Screen Negative 10/10/20 10:50 U Marijuana (THC) Screen Positive 10/10/20 10:50 Drugs of Abuse Note Disclamer 10/10/20 10:50 Plasma/Serum Alcohol < 0.01 % (0-0.07) 10/10/20 10:48 Coronavirus (PCR) Negative (Negative) 10/11/20 Unknown Blood Type AB POSITIVE 10/10/20 10:48 Antibody Screen Negative 10/10/20 10:48 [place]/IV: Voiding Method Incontinent Active Medications - Current Medications Current Medications: Generic Name Dose Route Start Last Admin Trade Name Freq PRN Reason Stop Dose Admin Acetaminophen 650 mg 10/10/20 21:51 10/20/20 09:11 Acetaminophen 325 Mg Tab PO 650 mg Q4H PRN Administration Pain MILD(1-3)/Fever >100.5/SALVADOR Acetaminophen 650 mg 10/11/20 11:24 10/17/20 17:16 Acetaminophen 650 Mg Rect Supp MT 650 mg Q6H PRN Administration Fever >101 Albuterol 2.5 mg 10/11/20 13:12 Albuterol 2.5 Mg/3 Ml Nebu IH Q6HRT PRN Shortness Of Breath Amlodipine Besylate 10 mg 10/25/20 13:00 11/02/20 09:55 Amlodipine 10 Mg Tab PO 10 mg QDAY PEPITO Administration Lipase/Protease/Amylase 1 each 10/10/20 22:18 Lipase 10,500/Protease 25,000/Amylase 43,750 (Units) Dr Santana FEEDTUBE PRN PRN For Clogged Feeding Tube Clonidine HCl 0.3 mg 10/14/20 15:00 10/28/20 14:58 Clonidine Tts 0.3 Mg/24 Hr Patch TD 0.3 mg Fr PEPITO Administration Docusate Sodium 100 mg 10/16/20 22:00 11/02/20 21:41 Docusate Sodium 100 Mg/10 Ml Oral Liqd PO 100 mg BID PEPITO Administration Fentanyl 25 mcg 10/31/20 13:00 11/02/20 08:50 Fentanyl 100 Mcg/2 Ml Inj IV 25 mcg Q2H PRN Administration ANALGESIA Fentanyl 25 mcg 10/31/20 14:00 10/31/20 17:16 Fentanyl 25 Mcg/Hr Patch 72hr TD Not Given Q3D PEPITO Furosemide 20 mg 11/02/20 14:00 Furosemide 20 Mg/2 Ml Inj IV ONCE PEPITO Glycopyrrolate 2 mg 10/31/20 09:30 11/02/20 18:17 Glycopyrrolate 2 Mg Tab PO 2 mg Q6HR [facility] Administration Heparin Sodium (Porcine) 5,000 unit 10/11/20 22:00 11/02/20 21:41 Heparin 5,000 Unit/1 Ml Vial SUB-Q 5,000 unit Q12HR [facility] Administration Hydralazine HCl 100 mg 10/24/20 09:30 11/02/20 21:38 Hydralazine 25 Mg Tab PO Not Given Q8HR [facility] Hydralazine HCl 10 mg 11/02/20 08:46 Hydralazine 20 Mg/1 Ml Inj IV Q6H PRN Hypertension Hydromorphone HCl 0.5 mg 11/01/20 20:55 11/02/20 06:03 Hydromorphone 1 Mg/1 Ml Inj IV 0.5 mg Q3H PRN Administration Pain , Severe (7-10) Hydrophilic Ointment 1 applic 10/10/20 10:34 Lip Therapy Vaseline TP Q2HR PRN Dry Lips Lansoprazole 30 mg 10/24/20 10:00 11/02/20 21:41 Lansoprazole 30 Mg Solutab FEEDTUBE 30 mg BID [facility] Administration Levetiracetam 500 mg 10/31/20 10:00 11/02/20 21:41 Levetiracetam 500 Mg/5 Ml Oral Liqd PO 500 mg BID [facility] Administration Metoclopramide HCl 10 mg 10/10/20 21:51 Metoclopramide 10 Mg/2 Ml Inj IV Q6H PRN Nausea And Vomiting Metoprolol Tartrate 100 mg 10/21/20 14:00 11/02/20 21:40 Metoprolol Tartrate 50 Mg Tab PO 100 mg TID [facility] Administration Multi-Ingred Cream/Lotion/Oil/Oint 1 applic 10/10/20 10:34 Mineral Oil/Petrolatum, White Ophth Oint 3.5 Gm OU Q4HR PRN Dry Eye(s) Ondansetron HCl 4 mg 10/10/20 21:51 11/01/20 20:48 Ondansetron 4 Mg/2 Ml Inj IV 4 mg Q3H PRN Administration Nausea And Vomiting Polyethylene Glycol 17 gm 04/05/21 10:00 11/02/20 09:55 Polyethylene Glycol 3350 17 Gm Powder PO 17 gm QDAY PEPITO Administration Quetiapine Fumarate 100 mg 11/02/20 10:00 11/02/20 09:55 Quetiapine 100 Mg Tab PO 100 mg DAILY PEPITO Administration Quetiapine Fumarate 150 mg 11/01/20 22:00 11/02/20 21:42 Quetiapine 100 Mg Tab PO 150 mg QHS PEPITO Administration Scopolamine 1 each 10/17/20 10:00 11/01/20 09:42 Scopolamine Transdermal Patch 72 Hr TD 1 each Q3D PEPITO Administration Simple Syrup 15 ml 10/10/20 22:18 Simple Syrup 15 Ml FEEDTUBE PRN PRN Hypoglycemia Simple Syrup 30 ml 10/10/20 22:18 Simple Syrup 15 Ml FEEDTUBE PRN PRN Hypoglycemia Sodium Bicarbonate 325 mg 10/10/20 22:18 Sodium Bicarbonate 325 Mg Tab FEEDTUBE PRN PRN For Clogged Feeding Tube Sodium Chloride 10 ml 10/10/20 22:00 11/02/20 21:39 Sodium Chloride 0.9% 10 Ml Flush Syringe IV 10 ml BID PEPITO Administration Sodium Chloride 10 ml 10/10/20 21:51 10/21/20 09:56 Sodium Chloride 0.9% 10 Ml Flush Syringe IV 10 ml PRN PRN Administration LINE FLUSH Nutrition/Malnutrition Assess - Dietary Evaluation Nutrition/Malnutrition Findings: Nutrition Notes Start: 10/11/20 08:38 Freq: Status: Active Protocol: Document 11/02/20 13:05 CW (Rec: 11/02/20 13:12 [id number]) Nutrition Notes Initial or Follow up Reassessment Current Diagnosis Acute Kidney Injury,Sepsis, Hypertension,Heart Failure, Respiratory Failure Other Pertinent Diagnosis GIB, pneu, MRSA TX, pulmonary edema Current Diet Promote at 80 ml/hr Labs/Tests BUN 28 Pertinent Medications Zofran Lasix Height 6 ft Weight 131.9 kg [place] Body Weight (kg) 80.90 BMI 39.4 Weight change and time frame weight change d/t fluid overload Weight Status Morbidly Obese Subjective/Other Information F/U for TF tolerance. TF was held the night before d/t emesis but has been restarted and has been tolerated. Pt has been place back on mechanical vent. Pt now has DTI to heel. Percent of energy/protein needs met: 100%/74% Burn Absent Trauma Absent Difficulty In Swallowing Skin Integrity/Comment DTI to heel Current % PO Negligible Minimum of two criteria No Fluid Accumulation Mild (non-severe) #1 Nutrition Diagnosis Inadequate oral intake Diagnosis Progress(for reassessment Continues documentation) Is patient on ventilator? Yes Is Patient Ambulatory and/or Out of Bed No REE-(Murphy-St. Jeor-confined to bed) 2645.904 Kcal/Kg value to use for calculation 15 Approximate Energy Requirements Using 1979 kcal/Kg Calculation Used for Recommendations Kcal/kg Additional Notes protein needs: >162g (>2 kgIBW ) fluid needs: 1 ml/kcal or per MD Nutrition Intervention Change Diet Order: Continue Nutrition Support: Promote at 80 ml/hr with a free water flush of 200 ml q4hr for hypernatremia. Once hypernatremia resolved, resume flush of 50 ml q4h. Kcal 1,920 Protein (gm) 120 Fluid (mL) 1,611 Goal #1 Tolerate TF Goal #2 Meet at least 70% of protein and 100% of kcal needs via TF Anticipated Discharge Needs: TF Follow-Up By: 11/04/20 Additional Comments F/U for TF tolerance, vent status
[2020-11-03] MEDS: GLYCOPYRROLATE 2 MG TAB PO SCH ×4 (00:27→21:40)
[2020-11-03 05:04] LABS: Basophils # (Auto) 0.1 K/mm3 (0.0-0.1); Basophils % (Auto) 0.5 % (0.0-1.8); Eosinophils # (Auto) 0.3 K/mm3 (0.0-0.4); Eosinophils % (Auto) 2.7 % (0.0-4.3); Hematocrit 27.2 % (35.5-45.6); Lymphocytes # (Auto) 1.3 K/mm3 (1.2-5.4); Lymphocytes % (Auto) 11.4 % (13.4-35.0); Mean Corpuscular HGB Conc 33 % (32-34); Mean Corpuscular Volume 89 fl (84-94); Monocytes # (Auto) 1.1 K/mm3 (0.0-0.8); Monocytes % (Auto) 9.5 % (0.0-7.3); Platelet Count 195 K/mm3 (140-440); Red Blood Count 3.07 M/mm3 (3.65-5.03); Red Cell Distribution Width 14.9 % (13.2-15.2)
[2020-11-03 05:30] LABS: BUN/Creatinine Ratio 24; Blood Urea Nitrogen 26 mg/dL (9-20); Calcium 8.6 mg/dL (8.4-10.2); Hemolysis Index 0
--- NOTE | 2020-11-03 05:55 | XRay Report ---
CHEST - 1 VIEW INDICATION: Pneumonia vs atelectasis (RUL) COMPARISON: Yesterday FINDINGS: SUPPORT DEVICES: Stable support device positioning. HEART: Stable cardiomediastinal silhouette. LUNGS/PLEURA: Persistent moderate patchy multifocal airspace disease greatest in the right upper lob e. ADDITIONAL FINDINGS: None. IMPRESSION: Unchanged exam. Signer Name: Trevon Shelby MD Signed: 11/03/2020 5:51 AM Workstation Name: [id number]
[2020-11-03] MEDS: hydrALAZINE 25 MG TAB PO SCH ×3 (06:51→21:39)
[2020-11-03] MEDS: METOPROLOL TARTRATE 50 MG TAB PO SCH ×3 (08:36→21:38)
[2020-11-03] MEDS: LANSOPRAZOLE 30 MG SOLUTAB FEEDTUBE SCH ×2 (09:36→21:39)
[2020-11-03] MEDS: levETIRAcetam 500 MG/5 ML ORAL LIQD PO SCH ×2 (09:36→21:41)
[2020-11-03] MEDS: DOCUSATE SODIUM 100 MG/10 ML ORAL LIQD PO SCH ×2 (09:36→21:39)
[2020-11-03] MEDS: amLODIPine 10 MG TAB PO SCH (09:36)
[2020-11-03] MEDS: POLYETHYLENE GLYCOL 3350 17 GM POWDER PO SCH (09:37)
[2020-11-03] MEDS: HEPARIN 5,000 UNIT/1 ML VIAL SUB-Q SCH ×2 (09:37→21:39)
[2020-11-03] MEDS: QUEtiapine 100 MG TAB PO SCH ×2 (09:37→21:38)
--- NOTE | 2020-11-03 10:07 | Progress Note ---
Assessment and Plan Continue PRN IV Lasix with close monitoring of volume status. Will optimize antihypertensive regimen as needed. May consider transition to OAC for AF at some point prior to discharge if H/H remains stable and no further signs of bleeding. Otherwise continue SQ heparin for now. Pt seen in conjunction with Dr. Bill Steen, who agrees with the assessment and plan of care. - Patient Problems (1) Anoxic brain injury Current Visit: Yes Status: Suspected (2) Seizure Current Visit: Yes Status: Acute (3) Cardiopulmonary arrest with successful resuscitation Current Visit: Yes Status: Acute (4) Acute respiratory failure Current Visit: Yes Status: Acute Qualifiers: Respiratory failure complication: hypoxia and hypercapnia Qualified Code(s): J96.01 - Acute respiratory failure with hypoxia; J96.02 - Acute respiratory failure with hypercapnia (5) Sepsis Current Visit: Yes Status: Acute (6) PNA (pneumonia) Current Visit: Yes Status: Acute (7) MRSA (methicillin resistant staph aureus) culture positive Current Visit: Yes Status: Acute (8) Acute heart failure with preserved ejection fraction (HFpEF) Current Visit: Yes Status: Acute (9) PAF (paroxysmal atrial fibrillation) Current Visit: Yes Status: Acute (10) Anemia Current Visit: Yes Status: Acute (11) Accelerated hypertension Current Visit: Yes Status: Acute (12) NSTEMI (non-ST elevated myocardial infarction) Current Visit: Yes Status: Acute Plan to address problem: Type 2 Subjective Date of service: 11/03/20 Principal diagnosis: Cardiac Arrest, Acute Resp Failure, Septic Shock Interval history: No acute events reported overnight. Tele reviewed - SR 80s, 12-bt run of VT noted overnight. Objective Last Vital Signs Temp 99.2 F 11/03/20 07:44 Pulse 92 H 11/03/20 09:36 Resp 24 11/03/20 09:00 BP 134/67 11/03/20 09:36 Pulse Ox 98 11/03/20 09:08 - Physical Examination General: Other (intubated) HEENT: Positive: Normocephaly Neck: Positive: neck supple, trachea midline, Other (Tracheostomy in place.) Cardiac: Positive: Reg Rate and Rhythm, S1/S2 Lungs: Positive: Decreased Breath Sounds Neuro: Positive: Other (intubated) Abdomen: Positive: Soft, Active Bowel Sounds Skin: Negative: Rash Extremities: Present: upper extr. pulses, lower extr. pulses. Absent: edema - Labs and Meds CBC 11/03/20 Range/Units 04:45 WBC 11.8 H (4.5-11.0) K/mm3 RBC 3.07 L (3.65-5.03) M/mm3 Hgb 9.0 L (11.8-15.2) gm/dl Hct 27.2 L (35.5-45.6) % Plt Count 195 (140-440) K/mm3 Lymph # (Auto) 1.3 (1.2-5.4) K/mm3 [place] # (Auto) 1.1 H (0.0-0.8) K/mm3 Eos # (Auto) 0.3 (0.0-0.4) K/mm3 Baso # (Auto) 0.1 (0.0-0.1) K/mm3 Comprehensive Metabolic Panel 11/03/20 Range/Units 04:45 Sodium 146 H (137-145) mmol/L Potassium 4.4 (3.6-5.0) mmol/L Chloride 100.8 (98-107) mmol/L Carbon Dioxide 39 H (22-30) mmol/L BUN 26 H (9-20) mg/dL Creatinine 1.1 (0.8-1.3) mg/dL Glucose 86 (75-100) mg/dL Calcium 8.6 (8.4-10.2) mg/dL - Imaging and Cardiology EKG: report reviewed, image reviewed Echo: report reviewed (10/10/2020 - EF 55-60%, mod LVH, mild diastolic d ysfunction) - Telemetry EKG Rhythm: Sinus Rhythm - EKG Sinus rhythms and dysrhythmias: sinus rhythm Repolarization changes or abnormalities: ST suggestive of injury, Q-T interval prolongation - Allied health notes Allied health notes reviewed: nursing
--- NOTE | 2020-11-03 12:11 | Progress Note ---
Assessment and Plan Cardiac arrest x3 with ROSC Severe septic and cardiogenic shock Acute respiratory failure with hypoxemia and hypercarbia Acute pulmonary edema MOE (acute kidney injury) Lactic acidosis, severe metabolic acidosis Bilateral pneumonia, aspiration pneumonia Elevated troponins - reduce Robinul to 2mg q8h re: thick secretions - keep peep at 8 - continue lasix 20 mg IV daily X 2 more doses - continue Seroquel for agitation control - resume daily SAT's and SBT assessment as tolerated - continue contact precautions re: MRSA - continue care as below otherwise; - complete anti-infective's per ID rec's - follow clinically re: fevers / WBC - Monitor hemodynamics closely - wean supplemental oxygen for target O2 sat's > 92% acutely - VAP bundle addressed - continue lung protective strategies - bronchodilators with pulmonary hygiene per RT - wean per pulmonary driven protocols otherwise - Monitor urine output closely - bicarbonate infusion - avoid nephrotoxins, renally dose all medications - continue to avoid benzodiazepine's, reduce the possibility of delirium - continue Scopolamine for secretion control - continue wound care per RN/WCN - prn analgesia per CPOT score - Maintenance of sleep-wake cycle, avoid delirium - continue enteral nutritional support at goal rate as tolerated - G.I. & VTE prophylaxis - PT/OT/ROM exercises - continue mobility protocols for pressure ulcer prophylaxis - Monitor hemodynamics closely - continue other care per attending / other consultants - discharge planning ongoing concurrently .... Re-evaluate in am & prn CONDITION: CRITICAL PROGNOSIS: GUARDED CODE STATUS: FULL CODE The high probability of a clinically significant, sudden or life-threatening de terioration of the [respiratory, cardiovascular & neurologic] system(s) required my full and direct attention, intervention and personal management. The aggregate critical care time was [32] minutes without overlap. Time includes spent on; [x] Data Review and interpretation [x] Patient assessment and monitoring of vital signs [x] Documentation [x] Medication orders and management Subjective Date of service: 11/03/20 Principal diagnosis: Cardiac arrest; Septic Shock; Ac. hypoxemic & hypercapnic resp failure; MOE Interval history: Patient is seen today for: Cardiac arrest with ROSC; Severe septic and cardiogenic shock; Acute respiratory failure with hypoxemia and hypercarbia; Acute pulmonary edema; MOE; Lactic acidosis; severe metabolic acidosis; Bilateral pneumonia; aspiration pneumonia; Elevated troponins Seen and examined at bedside; 24hour events reviewed; nursing and respiratory care staff consulted; no adverse overnight events reported to me; resting peacefully in bed; decent diuresis overnight; AMS is persistent; tolerated 2 ho urs on t-piece earlier Objective Vital Signs - 12hr 11/03/20 11/03/20 11/03/20 00:30 01:00 01:30 Temperature Pulse Rate 74 75 71 Pulse Rate [ From Monitor] Respiratory 20 21 20 Rate Blood Pressure 116/64 114/61 110/58 O2 Sat by Pulse 98 97 99 Oximetry O2 Sat by Pulse Oximetry [ Assessment] 11/03/20 11/03/20 11/03/20 02:00 02:30 03:00 Temperature Pulse Rate 71 71 68 Pulse Rate [ From Monitor] Respiratory 19 18 19 Rate Blood Pressure 117/61 129/66 129/66 O2 Sat by Pulse 98 98 99 Oximetry O2 Sat by Pulse Oximetry [ Assessment] 11/03/20 11/03/20 11/03/20 03:30 04:00 04:31 Temperature 100.8 F H Pulse Rate 70 73 85 Pulse Rate [ 78 From Monitor] Respiratory 19 21 25 H Rate Blood Pressure 126/65 132/74 176/102 O2 Sat by Pulse 97 100 98 Oximetry O2 Sat by Pulse Oximetry [ Assessment] 11/03/20 11/03/20 11/03/20 05:00 05:28 05:31 Temperature Pulse Rate 85 86 Pulse Rate [ From Monitor] Respiratory 22 24 Rate Blood Pressure 172/94 154/74 O2 Sat by Pulse 98 100 97 Oximetry O2 Sat by Pulse Oximetry [ Assessment] 11/03/20 11/03/20 11/03/20 06:00 06:30 06:51 Temperature Pulse Rate 89 88 80 Pulse Rate [ From Monitor] Respiratory 24 24 Rate Blood Pressure 156/81 146/77 146/77 O2 Sat by Pulse 96 96 Oximetry O2 Sat by Pulse Oximetry [ Assessment] 11/03/20 11/03/20 11/03/20 07:00 07:31 07:44 Temperature 99.2 F Pulse Rate 85 83 Pulse Rate [ From Monitor] Respiratory 18 22 Rate Blood Pressure 164/79 135/62 O2 Sat by Pulse 97 98 Oximetry O2 Sat by Pulse Oximetry [ Assessment] 11/03/20 11/03/20 11/03/20 08:00 08:01 08:10 Temperature Pulse Rate 76 Pulse Rate [ 83 From Monitor] Respiratory 15 20 Rate Blood Pressure 97/46 O2 Sat by Pulse 100 94 98 Oximetry O2 Sat by Pulse Oximetry [ Assessment] 11/03/20 11/03/20 11/03/20 08:11 08:30 08:36 Temperature Pulse Rate 84 83 Pulse Rate [ From Monitor] Respiratory 26 H Rate Blood Pressure 139/71 139/71 O2 Sat by Pulse 98 Oximetry O2 Sat by Pulse 98 Oximetry [ Assessment] 11/03/20 11/03/20 11/03/20 09:00 09:08 09:36 Temperature Pulse Rate 93 H 76 92 H Pulse Rate [ From Monitor] Respiratory 24 Rate Blood Pressure 155/84 97/46 134/67 O2 Sat by Pulse 98 98 Oximetry O2 Sat by Pulse Oximetry [ Assessment] Constitutional: appears uncomfortable, other (middle aged obese male with mildly increased respiratory efort at rest) Eyes: non-icteric ENT: oropharynx moist, oropharyngeal exudate pre, other (midline tracheostomy) Neck: supple, no lymphadenopathy, no JVD Effort: mildly labored Ascultation: Bilateral: diminished breath sounds, rhonchi (scant) Percussion: Bilateral: not dull Cardiovascular: regular rate and rhythm, other (S1,S2) Gastrointestinal: normoactive bowel sounds, soft, non-tender, non-distended (protuberant) Integumentary: normal Extremities: no cyanosis, no edema, pulses normal, no ischemia or petechiae Neurologic: pupils equal and round, unable to assess Psychiatric: other (unable to assess re: AMS) CBC and BMP: 11/03/20 04:45 11/03/20 04:45 ABG, PT/INR, D-dimer: ABG ABG pH 7.452 (7.320-7.450) H 11/03/20 05:05 POC ABG pCO2 55.4 mmHg (32.0-48.0) H 11/03/20 05:05 ABG pCO2 55.5 mm Hg 10/16/20 05:10 POC ABG pO2 129.1 mmHg (83-108) H 11/03/20 05:05 ABG pO2 104.5 mm Hg (80.0-90.0) H 10/16/20 05:10 POC ABG HCO3 37.8 11/03/20 05:05 ABG O2 Saturation 99.0 (0-100) 11/03/20 05:05 PT/INR, D-dimer PT 13.5 Sec. (12.2-14.9) 10/28/20 07:00 INR 1.05 (0.87-1.13) 10/28/20 07:00 D-Dimer 679.5 ng/mlDDU (0-234) H 10/10/20 10:48 Abnormal lab findings: Abnormal Labs 10/10/20 10/10/20 10/10/20 10:46 10:46 10:46 WBC RBC Hgb Hct RDW Lymph % (Auto) [place] % (Auto) Lymph # (Auto) [place] # (Auto) Seg Neutrophils % Lymphocytes % (Manual) Monocytes % (Manual) Seg Neutrophils # Seg Neutrophils # Man Lymphocytes # (Manual) Monocytes # (Manual) D-Dimer Heparin Anti-Xa Level ABG pH POC ABG pCO2 POC ABG pO2 ABG pO2 ABG HCO3 ABG O2 Saturation ABG Base Excess ABG Hemoglobin ABG Oxyhemoglobin ABG Sodium ABG Potassium ABG Chloride ABG Glucose VBG pH Oxyhemoglobin Carboxyhemoglobin Sodium Potassium Chloride Carbon Dioxide BUN Creatinine Glucose POC Glucose Lactic Acid 13.60 H* Calcium Phosphorus Magnesium Total Bilirubin AST ALT Ammonia 214.0 H Lactate Dehydrogenase Total Creatine Kinase CK-MB (CK-2) Troponin T NT-Pro-B Natriuret Pep Total Protein Albumin Triglycerides TSH 6.260 H Arterial Blood Glucose Arterial Blood Ionized Calcium Urine pH Urine WBC (Auto) Urine Creatinine 10/10/20 10/10/20 10/10/20 10:46 10:48 10:48 WBC RBC 5.28 H Hgb 15.5 H Hct 48.8 H RDW Lymph % (Auto) [place] % (Auto) Lymph # (Auto) [place] # (Auto) Seg Neutrophils % Lymphocytes % (Manual) 42.0 H Monocytes % (Manual) Seg Neutrophils # Seg Neutrophils # Man Lymphocytes # (Manual) Monocytes # (Manual) D-Dimer Heparin Anti-Xa Level ABG pH POC ABG pCO2 POC ABG pO2 ABG pO2 ABG HCO3 ABG O2 Saturation ABG Base Excess ABG Hemoglobin ABG Oxyhemoglobin ABG Sodium ABG Potassium ABG Chloride ABG Glucose VBG pH Oxyhemoglobin Carboxyhemoglobin Sodium Potassium 3.3 L Chloride 91.2 L Carbon Dioxide BUN Creatinine 1.8 H Glucose 231 H POC Glucose Lactic Acid Calcium Phosphorus Magnesium Total Bilirubin AST 60 H ALT 57 H Ammonia Lactate Dehydrogenase Total Creatine Kinase CK-MB (CK-2) Troponin T NT-Pro-B Natriuret Pep 1187 H Total Protein 9.0 H Albumin Triglycerides TSH Arterial Blood Glucose Arterial Blood Ionized Calcium Urine pH Urine WBC (Auto) Urine Creatinine 10/10/20 10/10/20 10/10/20 10:48 10:48 10:48 WBC RBC Hgb Hct RDW Lymph % (Auto) [place] % (Auto) Lymph # (Auto) [place] # (Auto) Seg Neutrophils % Lymphocytes % (Manual) Monocytes % (Manual) Seg Neutrophils # Seg Neutrophils # Man Lymphocytes # (Manual) Monocytes # (Manual) D-Dimer 679.5 H Heparin Anti-Xa Level ABG pH POC ABG pCO2 POC ABG pO2 ABG pO2 ABG HCO3 ABG O2 Saturation ABG Base Excess ABG Hemoglobin ABG Oxyhemoglobin ABG Sodium ABG Potassium ABG Chloride ABG Glucose VBG pH 6.870 L* Oxyhemoglobin Carboxyhemoglobin Sodium Potassium Chloride Carbon Dioxide BUN Creatinine Glucose POC Glucose Lactic Acid Calcium Phosphorus Magnesium Total Bilirubin AST ALT Ammonia Lactate Dehydrogenase 386 H Total Creatine Kinase CK-MB (CK-2) Troponin T NT-Pro-B Natriuret Pep Total Protein Albumin Triglycerides TSH Arterial Blood Glucose Arterial Blood Ionized Calcium Urine pH Urine WBC (Auto) Urine Creatinine 10/10/20 10/10/20 10/10/20 14:10 14:20 15:50 WBC RBC Hgb Hct RDW Lymph % (Auto) [place] % (Auto) Lymph # (Auto) [place] # (Auto) Seg Neutrophils % Lymphocytes % (Manual) Monocytes % (Manual) Seg Neutrophils # Seg Neutrophils # Man Lymphocytes # (Manual) Monocytes # (Manual) D-Dimer Heparin Anti-Xa Level ABG pH 7.175 L 7.247 L POC ABG pCO2 85.0 H POC ABG pO2 43.7 L ABG pO2 60.3 L ABG HCO3 32.0 H ABG O2 Saturation 86.1 L ABG Base Excess ABG Hemoglobin ABG Oxyhemoglobin 67.7 L ABG Sodium ABG Potassium ABG Chloride ABG Glucose 247 H VBG pH Oxyhemoglobin 84.4 L Carboxyhemoglobin Sodium Potassium Chloride Carbon Dioxide BUN Creatinine Glucose POC Glucose Lactic Acid 4.00 H* Calcium Phosphorus Magnesium Total Bilirubin AST ALT Ammonia Lactate Dehydrogenase Total Creatine Kinase CK-MB (CK-2) Troponin T NT-Pro-B Natriuret Pep Total Protein Albumin Triglycerides TSH Arterial Blood Glucose 247 H Arterial Blood Ionized Calcium 4.4 L Urine pH Urine WBC (Auto) Urine Creatinine 10/10/20 10/10/20 10/10/20 15:50 16:22 18:18 WBC RBC Hgb Hct RDW Lymph % (Auto) [place] % (Auto) Lymph # (Auto) [place] # (Auto) Seg Neutrophils % Lymphocytes % (Manual) Monocytes % (Manual) Seg Neutrophils # Seg Neutrophils # Man Lymphocytes # (Manual) Monocytes # (Manual) D-Dimer Heparin Anti-Xa Level ABG pH 7.171 L POC ABG pCO2 96.6 H POC ABG pO2 55.3 L ABG pO2 ABG HCO3 ABG O2 Saturation ABG Base Excess ABG Hemoglobin ABG Oxyhemoglobin 81.4 L ABG Sodium ABG Potassium ABG Chloride ABG Glucose 115 H VBG pH Oxyhemoglobin Carboxyhemoglobin Sodium Potassium Chloride Carbon Dioxide BUN Creatinine Glucose POC Glucose 132 H Lactic Acid Calcium Phosphorus Magnesium Total Bilirubin AST ALT Ammonia Lactate Dehydrogenase Total Creatine Kinase 1192 H CK-MB (CK-2) 21.7 H Troponin T 0.377 H* D NT-Pro-B Natriuret Pep Total Protein Albumin Triglycerides TSH Arterial Blood Glucose 115 H Arterial Blood Ionized Calcium Urine pH Urine WBC (Auto) Urine Creatinine 10/10/20 10/10/20 10/10/20 18:18 18:18 22:49 WBC 23.0 H RBC 5.12 H Hgb Hct RDW Lymph % (Auto) [place] % (Auto) Lymph # (Auto) [place] # (Auto) Seg Neutrophils % Lymphocytes % (Manual) 4.0 L Monocytes % (Manual) 9.0 H Seg Neutrophils # Seg Neutrophils # Man 13.8 H Lymphocytes # (Manual) 0.9 L Monocytes # (Manual) 2.1 H D-Dimer Heparin Anti-Xa Level ABG pH POC ABG pCO2 POC ABG pO2 ABG pO2 ABG HCO3 ABG O2 Saturation ABG Base Excess ABG Hemoglobin ABG Oxyhemoglobin ABG Sodium ABG Potassium ABG Chloride ABG Glucose VBG pH Oxyhemoglobin Carboxyhemoglobin Sodium 146 H Potassium Chloride Carbon Dioxide 34 H D BUN 27 H Creatinine 2.7 H Glucose 102 H POC Glucose Lactic Acid Calcium Phosphorus Magnesium Total Bilirubin AST 90 H ALT 66 H Ammonia Lactate Dehydrogenase Total Creatine Kinase CK-MB (CK-2) Troponin T 0.273 H* D NT-Pro-B Natriuret Pep Total Protein Albumin Triglycerides TSH Arterial Blood Glucose Arterial Blood Ionized Calcium Urine pH Urine WBC (Auto) Urine Creatinine 10/11/20 10/11/20 10/11/20 02:00 02:00 02:00 WBC 17.3 H RBC Hgb Hct RDW Lymph % (Auto) 3.9 L [place] % (Auto) Lymph # (Auto) 0.7 L [place] # (Auto) Seg Neutrophils % 93.0 H Lymphocytes % (Manual) Monocytes % (Manual) Seg Neutrophils # 16.1 H Seg Neutrophils # Man Lymphocytes # (Manual) Monocytes # (Manual) D-Dimer Heparin Anti-Xa Level ABG pH POC ABG pCO2 POC ABG pO2 ABG pO2 ABG HCO3 ABG O2 Saturation ABG Base Excess ABG Hemoglobin ABG Oxyhemoglobin ABG Sodium ABG Potassium ABG Chloride ABG Glucose VBG pH Oxyhemoglobin Carboxyhemoglobin Sodium 149 H Potassium 3.3 L Chloride 95.3 L Carbon Dioxide 37 H BUN 29 H Creatinine 2.6 H Glucose POC Glucose Lactic Acid Calcium Phosphorus Magnesium Total Bilirubin AST 80 H ALT 59 H Ammonia Lactate Dehydrogenase Total Creatine Kinase CK-MB (CK-2) Troponin T 0.201 H* D NT-Pro-B Natriuret Pep Total Protein Albumin 3.6 L Triglycerides TSH Arterial Blood Glucose Arterial Blood Ionized Calcium Urine pH Urine WBC (Auto) Urine Creatinine 10/11/20 10/11/20 10/11/20 03:51 08:35 11:15 WBC RBC Hgb Hct RDW Lymph % (Auto) [place] % (Auto) Lymph # (Auto) [place] # (Auto) Seg Neutrophils % Lymphocytes % (Manual) Monocytes % (Manual) Seg Neutrophils # Seg Neutrophils # Man Lymphocytes # (Manual) Monocytes # (Manual) D-Dimer Heparin Anti-Xa Level 0.22 L ABG pH 7.491 H POC ABG pCO2 57.6 H POC ABG pO2 ABG pO2 ABG HCO3 ABG O2 Saturation ABG Base Excess ABG Hemoglobin ABG Oxyhemoglobin ABG Sodium 150.0 H ABG Potassium 3.1 L ABG Chloride 96.0 L ABG Glucose 122 H VBG pH Oxyhemoglobin Carboxyhemoglobin Sodium Potassium Chloride Carbon Dioxide BUN Creatinine Glucose POC Glucose 151 H Lactic Acid Calcium Phosphorus Magnesium Total Bilirubin AST ALT Ammonia Lactate Dehydrogenase Total Creatine Kinase CK-MB (CK-2) Troponin T NT-Pro-B Natriuret Pep Total Protein Albumin Triglycerides TSH Arterial Blood Glucose 122 H Arterial Blood Ionized Calcium 3.9 L Urine pH Urine WBC (Auto) Urine Creatinine 10/11/20 10/11/20 10/11/20 13:30 13:30 13:30 WBC 15.0 H RBC Hgb Hct RDW Lymph % (Auto) [place] % (Auto) Lymph # (Auto) [place] # (Auto) Seg Neutrophils % Lymphocytes % (Manual) Monocytes % (Manual) Seg Neutrophils # Seg Neutrophils # Man Lymphocytes # (Manual) Monocytes # (Manual) D-Dimer Heparin Anti-Xa Level ABG pH POC ABG pCO2 POC ABG pO2 ABG pO2 ABG HCO3 ABG O2 Saturation ABG Base Excess ABG Hemoglobin ABG Oxyhemoglobin ABG Sodium ABG Potassium ABG Chloride ABG Glucose VBG pH Oxyhemoglobin Carboxyhemoglobin Sodium Potassium Chloride Carbon Dioxide BUN Creatinine Glucose POC Glucose Lactic Acid Calcium Phosphorus Magnesium Total Bilirubin AST ALT Ammonia Lactate Dehydrogenase Total Creatine Kinase CK-MB (CK-2) Troponin T NT-Pro-B Natriuret Pep Total Protein Albumin Triglycerides TSH Arterial Blood Glucose Arterial Blood Ionized Calcium Urine pH 9.0 H Urine WBC (Auto) 18.0 H Urine Creatinine 80.5 H 10/11/20 10/11/20 10/12/20 17:17 23:14 03:53 WBC RBC Hgb Hct RDW Lymph % (Auto) [place] % (Auto) Lymph # (Auto) [place] # (Auto) Seg Neutrophils % Lymphocytes % (Manual) Monocytes % (Manual) Seg Neutrophils # Seg Neutrophils # Man Lymphocytes # (Manual) Monocytes # (Manual) D-Dimer Heparin Anti-Xa Level ABG pH 7.545 H POC ABG pCO2 54.6 H POC ABG pO2 231.9 H ABG pO2 ABG HCO3 ABG O2 Saturation ABG Base Excess ABG Hemoglobin ABG Oxyhemoglobin 98.5 H ABG Sodium 150.5 H ABG Potassium 3.2 L ABG Chloride 96.0 L ABG Glucose 148 H VBG pH Oxyhemoglobin Carboxyhemoglobin Sodium Potassium Chloride Carbon Dioxide BUN Creatinine Glucose POC Glucose 121 H 135 H Lactic Acid Calcium Phosphorus Magnesium Total Bilirubin AST ALT Ammonia Lactate Dehydrogenase Total Creatine Kinase CK-MB (CK-2) Troponin T NT-Pro-B Natriuret Pep Total Protein Albumin Triglycerides TSH Arterial Blood Glucose 148 H Arterial Blood Ionized Calcium 3.8 L Urine pH Urine WBC (Auto) Urine Creatinine 10/12/20 10/12/20 10/12/20 04:00 05:10 05:12 WBC 14.3 H RBC Hgb 11.6 L Hct 35.2 L RDW Lymph % (Auto) [place] % (Auto) Lymph # (Auto) [place] # (Auto) Seg Neutrophils % Lymphocytes % (Manual) Monocytes % (Manual) Seg Neutrophils # Seg Neutrophils # Man Lymphocytes # (Manual) Monocytes # (Manual) D-Dimer Heparin Anti-Xa Level ABG pH POC ABG pCO2 POC ABG pO2 ABG pO2 ABG HCO3 ABG O2 Saturation ABG Base Excess ABG Hemoglobin ABG Oxyhemoglobin ABG Sodium ABG Potassium ABG Chloride ABG Glucose VBG pH Oxyhemoglobin Carboxyhemoglobin Sodium 155 H Potassium 3.3 L Chloride 97.9 L Carbon Dioxide 47 H* D BUN 50 H Creatinine 3.4 H Glucose 146 H POC Glucose 137 H Lactic Acid Calcium 8.0 L Phosphorus Magnesium Total Bilirubin AST ALT Ammonia Lactate Dehydrogenase Total Creatine Kinase CK-MB (CK-2) Troponin T 0.125 H* D NT-Pro-B Natriuret Pep Total Protein Albumin Triglycerides TSH Arterial Blood Glucose Arterial Blood Ionized Calcium Urine pH Urine WBC (Auto) Urine Creatinine 10/12/20 10/12/20 10/12/20 11:39 16:01 19:49 WBC RBC Hgb Hct RDW Lymph % (Auto) [place] % (Auto) Lymph # (Auto) [place] # (Auto) Seg Neutrophils % Lymphocytes % (Manual) Monocytes % (Manual) Seg Neutrophils # Seg Neutrophils # Man Lymphocytes # (Manual) Monocytes # (Manual) D-Dimer Heparin Anti-Xa Level ABG pH POC ABG pCO2 POC ABG pO2 ABG pO2 ABG HCO3 ABG O2 Saturation ABG Base Excess ABG Hemoglobin ABG Oxyhemoglobin ABG Sodium ABG Potassium ABG Chloride ABG Glucose VBG pH Oxyhemoglobin Carboxyhemoglobin Sodium 157 H Potassium 3.3 L Chloride Carbon Dioxide 47 H* BUN 52 H Creatinine 3.0 H Glucose 137 H POC Glucose 138 H 119 H Lactic Acid Calcium 8.0 L Phosphorus Magnesium Total Bilirubin AST ALT Ammonia Lactate Dehydrogenase Total Creatine Kinase CK-MB (CK-2) Troponin T NT-Pro-B Natriuret Pep Total Protein Albumin Triglycerides TSH Arterial Blood Glucose Arterial Blood Ionized Calcium Urine pH Urine WBC (Auto) Urine Creatinine 10/12/20 10/13/20 10/13/20 23:37 02:28 04:52 WBC RBC Hgb Hct RDW Lymph % (Auto) [place] % (Auto) Lymph # (Auto) [place] # (Auto) Seg Neutrophils % Lymphocytes % (Manual) Monocytes % (Manual) Seg Neutrophils # Seg Neutrophils # Man Lymphocytes # (Manual) Monocytes # (Manual) D-Dimer Heparin Anti-Xa Level ABG pH 7.485 H POC ABG pCO2 57.1 H POC ABG pO2 ABG pO2 ABG HCO3 ABG O2 Saturation ABG Base Excess ABG Hemoglobin ABG Oxyhemoglobin ABG Sodium 152.4 H ABG Potassium ABG Chloride ABG Glucose 129 H VBG pH Oxyhemoglobin Carboxyhemoglobin Sodium 155 H Potassium Chloride Carbon Dioxide 45 H* BUN 52 H Creatinine 2.7 H Glucose 121 H POC Glucose 131 H Lactic Acid Calcium Phosphorus Magnesium 2.40 H Total Bilirubin AST ALT Ammonia Lactate Dehydrogenase Total Creatine Kinase CK-MB (CK-2) Troponin T NT-Pro-B Natriuret Pep Total Protein Albumin Triglycerides 278 H TSH Arterial Blood Glucose 129 H Arterial Blood Ionized Calcium 4.1 L Urine pH Urine WBC (Auto) Urine Creatinine 10/13/20 10/13/20 10/13/20 04:52 05:13 11:37 WBC 14.7 H RBC Hgb 11.7 L Hct RDW 15.8 H Lymph % (Auto) [place] % (Auto) Lymph # (Auto) [place] # (Auto) Seg Neutrophils % Lymphocytes % (Manual) Monocytes % (Manual) Seg Neutrophils # Seg Neutrophils # Man Lymphocytes # (Manual) Monocytes # (Manual) D-Dimer Heparin Anti-Xa Level ABG pH POC ABG pCO2 POC ABG pO2 ABG pO2 ABG HCO3 ABG O2 Saturation ABG Base Excess ABG Hemoglobin ABG Oxyhemoglobin ABG Sodium ABG Potassium ABG Chloride ABG Glucose VBG pH Oxyhemoglobin Carboxyhemoglobin Sodium Potassium Chloride Carbon Dioxide BUN Creatinine Glucose POC Glucose 116 H 116 H Lactic Acid Calcium Phosphorus Magnesium Total Bilirubin AST ALT Ammonia Lactate Dehydrogenase Total Creatine Kinase CK-MB (CK-2) Troponin T NT-Pro-B Natriuret Pep Total Protein Albumin Triglycerides TSH Arterial Blood Glucose Arterial Blood Ionized Calcium Urine pH Urine WBC (Auto) Urine Creatinine 10/13/20 10/14/20 10/14/20 17:50 03:45 04:46 WBC 11.1 H RBC Hgb Hct RDW 15.3 H Lymph % (Auto) [place] % (Auto) Lymph # (Auto) [place] # (Auto) Seg Neutrophils % Lymphocytes % (Manual) Monocytes % (Manual) Seg Neutrophils # Seg Neutrophils # Man Lymphocytes # (Manual) Monocytes # (Manual) D-Dimer Heparin Anti-Xa Level ABG pH POC ABG pCO2 59.6 H POC ABG pO2 ABG pO2 ABG HCO3 ABG O2 Saturation ABG Base Excess ABG Hemoglobin ABG Oxyhemoglobin ABG Sodium 151.4 H ABG Potassium 3.3 L ABG Chloride ABG Glucose 138 H VBG pH Oxyhemoglobin Carboxyhemoglobin 1.6 H Sodium Potassium Chloride Carbon Dioxide BUN Creatinine Glucose POC Glucose 140 H Lactic Acid Calcium Phosphorus Magnesium Total Bilirubin AST ALT Ammonia Lactate Dehydrogenase Total Creatine Kinase CK-MB (CK-2) Troponin T NT-Pro-B Natriuret Pep Total Protein Albumin Triglycerides TSH Arterial Blood Glucose 138 H Arterial Blood Ionized Calcium 4.5 L Urine pH Urine WBC (Auto) Urine Creatinine 10/14/20 10/14/20 10/14/20 04:46 05:10 11:11 WBC RBC Hgb Hct RDW Lymph % (Auto) [place] % (Auto) Lymph # (Auto) [place] # (Auto) Seg Neutrophils % Lymphocytes % (Manual) Monocytes % (Manual) Seg Neutrophils # Seg Neutrophils # Man Lymphocytes # (Manual) Monocytes # (Manual) D-Dimer Heparin Anti-Xa Level ABG pH POC ABG pCO2 POC ABG pO2 ABG pO2 ABG HCO3 ABG O2 Saturation ABG Base Excess ABG Hemoglobin ABG Oxyhemoglobin ABG Sodium ABG Potassium ABG Chloride ABG Glucose VBG pH Oxyhemoglobin Carboxyhemoglobin Sodium 152 H Potassium 3.5 L Chloride Carbon Dioxide 38 H D BUN 46 H Creatinine 2.3 H Glucose 127 H POC Glucose 116 H 114 H Lactic Acid Calcium Phosphorus Magnesium Total Bilirubin AST ALT Ammonia Lactate Dehydrogenase Total Creatine Kinase CK-MB (CK-2) Troponin T NT-Pro-B Natriuret Pep Total Protein Albumin Triglycerides TSH Arterial Blood Glucose Arterial Blood Ionized Calcium Urine pH Urine WBC (Auto) Urine Creatinine 10/14/20 10/14/20 10/15/20 18:53 23:23 04:12 WBC RBC Hgb Hct RDW Lymph % (Auto) [place] % (Auto) Lymph # (Auto) [place] # (Auto) Seg Neutrophils % Lymphocytes % (Manual) Monocytes % (Manual) Seg Neutrophils # Seg Neutrophils # Man Lymphocytes # (Manual) Monocytes # (Manual) D-Dimer Heparin Anti-Xa Level ABG pH POC ABG pCO2 POC ABG pO2 ABG pO2 ABG HCO3 ABG O2 Saturation ABG Base Excess ABG Hemoglobin ABG Oxyhemoglobin ABG Sodium ABG Potassium ABG Chloride ABG Glucose VBG pH Oxyhemoglobin Carboxyhemoglobin Sodium 149 H Potassium 3.2 L Chloride Carbon Dioxide 37 H BUN 40 H Creatinine 2.0 H Glucose 124 H POC Glucose 128 H 113 H Lactic Acid Calcium Phosphorus Magnesium Total Bilirubin AST ALT Ammonia Lactate Dehydrogenase Total Creatine Kinase CK-MB (CK-2) Troponin T NT-Pro-B Natriuret Pep Total Protein Albumin Triglycerides TSH Arterial Blood Glucose Arterial Blood Ionized Calcium Urine pH Urine WBC (Auto) Urine Creatinine 10/15/20 10/15/20 10/15/20 04:22 11:39 17:36 WBC RBC Hgb Hct RDW Lymph % (Auto) [place] % (Auto) Lymph # (Auto) [place] # (Auto) Seg Neutrophils % Lymphocytes % (Manual) Monocytes % (Manual) Seg Neutrophils # Seg Neutrophils # Man Lymphocytes # (Manual) Monocytes # (Manual) D-Dimer Heparin Anti-Xa Level ABG pH POC ABG pCO2 POC ABG pO2 ABG pO2 115.0 H ABG HCO3 38.1 H ABG O2 Saturation ABG Base Excess 11.3 H ABG Hemoglobin 11.0 L ABG Oxyhemoglobin ABG Sodium ABG Potassium ABG Chloride ABG Glucose VBG pH Oxyhemoglobin Carboxyhemoglobin Sodium Potassium Chloride Carbon Dioxide BUN Creatinine Glucose POC Glucose 123 H 118 H Lactic Acid Calcium Phosphorus Magnesium Total Bilirubin AST ALT Ammonia Lactate Dehydrogenase Total Creatine Kinase CK-MB (CK-2) Troponin T NT-Pro-B Natriuret Pep Total Protein Albumin Triglycerides TSH Arterial Blood Glucose Arterial Blood Ionized Calcium Urine pH Urine WBC (Auto) Urine Creatinine 10/15/20 10/16/20 10/16/20 23:18 03:13 05:10 WBC RBC Hgb Hct RDW Lymph % (Auto) [place] % (Auto) Lymph # (Auto) [place] # (Auto) Seg Neutrophils % Lymphocytes % (Manual) Monocytes % (Manual) Seg Neutrophils # Seg Neutrophils # Man Lymphocytes # (Manual) Monocytes # (Manual) D-Dimer Heparin Anti-Xa Level ABG pH POC ABG pCO2 POC ABG pO2 ABG pO2 104.5 H ABG HCO3 35.1 H ABG O2 Saturation ABG Base Excess 9.5 H ABG Hemoglobin 7.9 L ABG Oxyhemoglobin ABG Sodium ABG Potassium ABG Chloride ABG Glucose VBG pH Oxyhemoglobin Carboxyhemoglobin Sodium Potassium 3.3 L Chloride Carbon Dioxide 33 H BUN 37 H Creatinine 1.4 H Glucose 148 H POC Glucose 135 H Lactic Acid Calcium Phosphorus Magnesium 2.40 H Total Bilirubin AST ALT Ammonia Lactate Dehydrogenase Total Creatine Kinase CK-MB (CK-2) Troponin T NT-Pro-B Natriuret Pep Total Protein Albumin Triglycerides TSH Arterial Blood Glucose Arterial Blood Ionized Calcium Urine pH Urine WBC (Auto) Urine Creatinine 10/16/20 10/16/20 10/16/20 06:36 11:08 17:07 WBC RBC Hgb Hct RDW Lymph % (Auto) [place] % (Auto) Lymph # (Auto) [place] # (Auto) Seg Neutrophils % Lymphocytes % (Manual) Monocytes % (Manual) Seg Neutrophils # Seg Neutrophils # Man Lymphocytes # (Manual) Monocytes # (Manual) D-Dimer Heparin Anti-Xa Level ABG pH POC ABG pCO2 POC ABG pO2 ABG pO2 ABG HCO3 ABG O2 Saturation ABG Base Excess ABG Hemoglobin ABG Oxyhemoglobin ABG Sodium ABG Potassium ABG Chloride ABG Glucose VBG pH Oxyhemoglobin Carboxyhemoglobin Sodium Potassium Chloride Carbon Dioxide BUN Creatinine Glucose POC Glucose 150 H 111 H 132 H Lactic Acid Calcium Phosphorus Magnesium Total Bilirubin AST ALT Ammonia Lactate Dehydrogenase Total Creatine Kinase CK-MB (CK-2) Troponin T NT-Pro-B Natriuret Pep Total Protein Albumin Triglycerides TSH Arterial Blood Glucose Arterial Blood Ionized Calcium Urine pH Urine WBC (Auto) Urine Creatinine 10/16/20 10/17/20 10/17/20 23:38 03:32 03:32 WBC RBC Hgb Hct RDW Lymph % (Auto) [place] % (Auto) Lymph # (Auto) [place] # (Auto) Seg Neutrophils % Lymphocytes % (Manual) Monocytes % (Manual) Seg Neutrophils # Seg Neutrophils # Man Lymphocytes # (Manual) Monocytes # (Manual) D-Dimer Heparin Anti-Xa Level ABG pH POC ABG pCO2 POC ABG pO2 ABG pO2 ABG HCO3 ABG O2 Saturation ABG Base Excess ABG Hemoglobin ABG Oxyhemoglobin ABG Sodium ABG Potassium ABG Chloride ABG Glucose VBG pH Oxyhemoglobin Carboxyhemoglobin Sodium 146 H Potassium Chloride Carbon Dioxide 32 H BUN 57 H Creatinine 2.4 H D Glucose 124 H POC Glucose 117 H Lactic Acid Calcium Phosphorus 5.20 H D Magnesium Total Bilirubin AST ALT Ammonia Lactate Dehydrogenase Total Creatine Kinase CK-MB (CK-2) Troponin T NT-Pro-B Natriuret Pep Total Protein Albumin Triglycerides TSH Arterial Blood Glucose Arterial Blood Ionized Calcium Urine pH Urine WBC (Auto) Urine Creatinine 10/17/20 10/17/20 10/18/20 05:10 17:33 00:13 WBC RBC Hgb Hct RDW Lymph % (Auto) [place] % (Auto) Lymph # (Auto) [place] # (Auto) Seg Neutrophils % Lymphocytes % (Manual) Monocytes % (Manual) Seg Neutrophils # Seg Neutrophils # Man Lymphocytes # (Manual) Monocytes # (Manual) D-Dimer Heparin Anti-Xa Level ABG pH POC ABG pCO2 POC ABG pO2 ABG pO2 ABG HCO3 ABG O2 Saturation ABG Base Excess ABG Hemoglobin ABG Oxyhemoglobin ABG Sodium ABG Potassium ABG Chloride ABG Glucose VBG pH Oxyhemoglobin Carboxyhemoglobin Sodium Potassium Chloride Carbon Dioxide BUN Creatinine Glucose POC Glucose 122 H 121 H 23 L Lactic Acid Calcium Phosphorus Magnesium Total Bilirubin AST ALT Ammonia Lactate Dehydrogenase Total Creatine Kinase CK-MB (CK-2) Troponin T NT-Pro-B Natriuret Pep Total Protein Albumin Triglycerides TSH Arterial Blood Glucose Arterial Blood Ionized Calcium Urine pH Urine WBC (Auto) Urine Creatinine 10/18/20 10/18/20 10/18/20 00:16 03:27 03:27 WBC RBC Hgb 11.7 L Hct RDW Lymph % (Auto) [place] % (Auto) Lymph # (Auto) [place] # (Auto) Seg Neutrophils % Lymphocytes % (Manual) Monocytes % (Manual) Seg Neutrophils # Seg Neutrophils # Man Lymphocytes # (Manual) Monocytes # (Manual) D-Dimer Heparin Anti-Xa Level ABG pH POC ABG pCO2 POC ABG pO2 ABG pO2 ABG HCO3 ABG O2 Saturation ABG Base Excess ABG Hemoglobin ABG Oxyhemoglobin ABG Sodium ABG Potassium ABG Chloride ABG Glucose VBG pH Oxyhemoglobin Carboxyhemoglobin Sodium Potassium Chloride 97.6 L Carbon Dioxide BUN 90 H Creatinine 3.3 H Glucose 146 H POC Glucose 134 H Lactic Acid Calcium Phosphorus Magnesium Total Bilirubin 1.70 H AST ALT Ammonia Lactate Dehydrogenase Total Creatine Kinase CK-MB (CK-2) Troponin T NT-Pro-B Natriuret Pep Total Protein Albumin 3.1 L Triglycerides TSH Arterial Blood Glucose Arterial Blood Ionized Calcium Urine pH Urine WBC (Auto) Urine Creatinine 10/18/20 10/18/20 10/18/20 05:09 11:19 17:15 WBC RBC Hgb Hct RDW Lymph % (Auto) [place] % (Auto) Lymph # (Auto) [place] # (Auto) Seg Neutrophils % Lymphocytes % (Manual) Monocytes % (Manual) Seg Neutrophils # Seg Neutrophils # Man Lymphocytes # (Manual) Monocytes # (Manual) D-Dimer Heparin Anti-Xa Level ABG pH POC ABG pCO2 POC ABG pO2 ABG pO2 ABG HCO3 ABG O2 Saturation ABG Base Excess ABG Hemoglobin ABG Oxyhemoglobin ABG Sodium ABG Potassium ABG Chloride ABG Glucose VBG pH Oxyhemoglobin Carboxyhemoglobin Sodium Potassium Chloride Carbon Dioxide BUN Creatinine Glucose POC Glucose 144 H 145 H 151 H Lactic Acid Calcium Phosphorus Magnesium Total Bilirubin AST ALT Ammonia Lactate Dehydrogenase Total Creatine Kinase CK-MB (CK-2) Troponin T NT-Pro-B Natriuret Pep Total Protein Albumin Triglycerides TSH Arterial Blood Glucose Arterial Blood Ionized Calcium Urine pH Urine WBC (Auto) Urine Creatinine 10/18/20 10/18/20 10/19/20 23:16 Unknown 04:55 WBC RBC Hgb Hct RDW Lymph % (Auto) [place] % (Auto) Lymph # (Auto) [place] # (Auto) Seg Neutrophils % Lymphocytes % (Manual) Monocytes % (Manual) Seg Neutrophils # Seg Neutrophils # Man Lymphocytes # (Manual) Monocytes # (Manual) D-Dimer Heparin Anti-Xa Level ABG pH POC ABG pCO2 POC ABG pO2 ABG pO2 ABG HCO3 ABG O2 Saturation ABG Base Excess ABG Hemoglobin ABG Oxyhemoglobin ABG Sodium ABG Potassium ABG Chloride ABG Glucose VBG pH Oxyhemoglobin Carboxyhemoglobin Sodium Potassium Chloride Carbon Dioxide BUN 104 H Creatinine 3.1 H Glucose 139 H POC Glucose 123 H Lactic Acid Calcium Phosphorus Magnesium Total Bilirubin AST ALT Ammonia Lactate Dehydrogenase Total Creatine Kinase CK-MB (CK-2) Troponin T NT-Pro-B Natriuret Pep Total Protein Albumin Triglycerides TSH Arterial Blood Glucose Arterial Blood Ionized Calcium Urine pH Urine WBC (Auto) 115.0 H Urine Creatinine 10/19/20 10/19/20 10/19/20 04:55 11:35 13:14 WBC 15.1 H RBC Hgb 11.1 L Hct 34.4 L RDW Lymph % (Auto) 4.2 L [place] % (Auto) 11.9 H Lymph # (Auto) 0.6 L [place] # (Auto) 1.8 H Seg Neutrophils % 82.0 H Lymphocytes % (Manual) Monocytes % (Manual) Seg Neutrophils # 12.4 H Seg Neutrophils # Man Lymphocytes # (Manual) Monocytes # (Manual) D-Dimer Heparin Anti-Xa Level ABG pH POC ABG pCO2 POC ABG pO2 ABG pO2 ABG HCO3 ABG O2 Saturation ABG Base Excess ABG Hemoglobin ABG Oxyhemoglobin ABG Sodium ABG Potassium ABG Chloride ABG Glucose VBG pH Oxyhemoglobin Carboxyhemoglobin Sodium Potassium Chloride Carbon Dioxide BUN Creatinine Glucose POC Glucose 136 H Lactic Acid Calcium Phosphorus Magnesium Total Bilirubin AST ALT Ammonia Lactate Dehydrogenase Total Creatine Kinase CK-MB (CK-2) Troponin T NT-Pro-B Natriuret Pep Total Protein Albumin Triglycerides TSH Arterial Blood Glucose Arterial Blood Ionized Calcium Urine pH Urine WBC (Auto) Urine Creatinine 93.7 H 10/19/20 10/19/20 10/20/20 17:53 23:39 04:30 WBC RBC Hgb Hct RDW Lymph % (Auto) [place] % (Auto) Lymph # (Auto) [place] # (Auto) Seg Neutrophils % Lymphocytes % (Manual) Monocytes % (Manual) Seg Neutrophils # Seg Neutrophils # Man Lymphocytes # (Manual) Monocytes # (Manual) D-Dimer Heparin Anti-Xa Level ABG pH POC ABG pCO2 POC ABG pO2 ABG pO2 ABG HCO3 ABG O2 Saturation ABG Base Excess ABG Hemoglobin ABG Oxyhemoglobin ABG Sodium ABG Potassium ABG Chloride ABG Glucose VBG pH Oxyhemoglobin Carboxyhemoglobin Sodium Potassium Chloride Carbon Dioxide BUN 104 H Creatinine 2.8 H Glucose 151 H POC Glucose 137 H 133 H Lactic Acid Calcium Phosphorus Magnesium Total Bilirubin AST ALT Ammonia Lactate Dehydrogenase Total Creatine Kinase CK-MB (CK-2) Troponin T NT-Pro-B Natriuret Pep Total Protein Albumin Triglycerides TSH Arterial Blood Glucose Arterial Blood Ionized Calcium Urine pH Urine WBC (Auto) Urine Creatinine 10/20/20 10/20/20 10/20/20 04:30 05:38 11:34 WBC 17.9 H RBC Hgb 11.7 L Hct RDW Lymph % (Auto) [place] % (Auto) Lymph # (Auto) [place] # (Auto) Seg Neutrophils % Lymphocytes % (Manual) Monocytes % (Manual) Seg Neutrophils # Seg Neutrophils # Man Lymphocytes # (Manual) Monocytes # (Manual) D-Dimer Heparin Anti-Xa Level ABG pH POC ABG pCO2 POC ABG pO2 ABG pO2 ABG HCO3 ABG O2 Saturation ABG Base Excess ABG Hemoglobin ABG Oxyhemoglobin ABG Sodium ABG Potassium ABG Chloride ABG Glucose VBG pH Oxyhemoglobin Carboxyhemoglobin Sodium Potassium Chloride Carbon Dioxide BUN Creatinine Glucose POC Glucose 164 H 148 H Lactic Acid Calcium Phosphorus Magnesium Total Bilirubin AST ALT Ammonia Lactate Dehydrogenase Total Creatine Kinase CK-MB (CK-2) Troponin T NT-Pro-B Natriuret Pep Total Protein Albumin Triglycerides TSH Arterial Blood Glucose Arterial Blood Ionized Calcium Urine pH Urine WBC (Auto) Urine Creatinine 10/20/20 10/20/20 10/20/20 17:40 20:20 23:29 WBC RBC Hgb Hct RDW Lymph % (Auto) [place] % (Auto) Lymph # (Auto) [place] # (Auto) Seg Neutrophils % Lymphocytes % (Manual) Monocytes % (Manual) Seg Neutrophils # Seg Neutrophils # Man Lymphocytes # (Manual) Monocytes # (Manual) D-Dimer Heparin Anti-Xa Level ABG pH 7.292 L POC ABG pCO2 68.5 H POC ABG pO2 ABG pO2 ABG HCO3 ABG O2 Saturation ABG Base Excess ABG Hemoglobin 11.6 L ABG Oxyhemoglobin ABG Sodium ABG Potassium ABG Chloride ABG Glucose 145 H VBG pH Oxyhemoglobin Carboxyhemoglobin Sodium Potassium Chloride Carbon Dioxide BUN Creatinine Glucose POC Glucose 130 H 136 H Lactic Acid Calcium Phosphorus Magnesium Total Bilirubin AST ALT Ammonia Lactate Dehydrogenase Total Creatine Kinase CK-MB (CK-2) Troponin T NT-Pro-B Natriuret Pep Total Protein Albumin Triglycerides TSH Arterial Blood Glucose 145 H Arterial Blood Ionized Calcium Urine pH Urine WBC (Auto) Urine Creatinine 10/21/20 10/21/20 10/21/20 04:20 06:26 06:30 WBC RBC Hgb Hct RDW Lymph % (Auto) [place] % (Auto) Lymph # (Auto) [place] # (Auto) Seg Neutrophils % Lymphocytes % (Manual) Monocytes % (Manual) Seg Neutrophils # Seg Neutrophils # Man Lymphocytes # (Manual) Monocytes # (Manual) D-Dimer Heparin Anti-Xa Level ABG pH 7.262 L POC ABG pCO2 72.4 H POC ABG pO2 81.6 L ABG pO2 ABG HCO3 ABG O2 Saturation ABG Base Excess ABG Hemoglobin 11.6 L ABG Oxyhemoglobin ABG Sodium ABG Potassium ABG Chloride ABG Glucose 140 H VBG pH Oxyhemoglobin Carboxyhemoglobin Sodium Potassium Chloride Carbon Dioxide 33 H BUN 104 H Creatinine 2.9 H Glucose 153 H POC Glucose 128 H Lactic Acid Calcium Phosphorus Magnesium Total Bilirubin AST ALT Ammonia Lactate Dehydrogenase Total Creatine Kinase CK-MB (CK-2) Troponin T NT-Pro-B Natriuret Pep Total Protein Albumin Triglycerides TSH Arterial Blood Glucose 140 H Arterial Blood Ionized Calcium Urine pH Urine WBC (Auto) Urine Creatinine 10/21/20 10/21/20 10/21/20 06:30 11:24 17:21 WBC 13.3 H RBC Hgb 10.7 L Hct 32.7 L RDW Lymph % (Auto) [place] % (Auto) Lymph # (Auto) [place] # (Auto) Seg Neutrophils % Lymphocytes % (Manual) Monocytes % (Manual) Seg Neutrophils # Seg Neutrophils # Man Lymphocytes # (Manual) Monocytes # (Manual) D-Dimer Heparin Anti-Xa Level ABG pH POC ABG pCO2 POC ABG pO2 ABG pO2 ABG HCO3 ABG O2 Saturation ABG Base Excess ABG Hemoglobin ABG Oxyhemoglobin ABG Sodium ABG Potassium ABG Chloride ABG Glucose VBG pH Oxyhemoglobin Carboxyhemoglobin Sodium Potassium Chloride Carbon Dioxide BUN Creatinine Glucose POC Glucose 178 H 138 H Lactic Acid Calcium Phosphorus Magnesium Total Bilirubin AST ALT Ammonia Lactate Dehydrogenase Total Creatine Kinase CK-MB (CK-2) Troponin T NT-Pro-B Natriuret Pep Total Protein Albumin Triglycerides TSH Arterial Blood Glucose Arterial Blood Ionized Calcium Urine pH Urine WBC (Auto) Urine Creatinine 10/22/20 10/22/20 10/22/20 00:05 04:30 06:15 WBC RBC Hgb Hct RDW Lymph % (Auto) [place] % (Auto) Lymph # (Auto) [place] # (Auto) Seg Neutrophils % Lymphocytes % (Manual) Monocytes % (Manual) Seg Neutrophils # Seg Neutrophils # Man Lymphocytes # (Manual) Monocytes # (Manual) D-Dimer Heparin Anti-Xa Level ABG pH 7.225 L POC ABG pCO2 76.6 H POC ABG pO2 ABG pO2 ABG HCO3 ABG O2 Saturation ABG Base Excess ABG Hemoglobin 11.1 L ABG Oxyhemoglobin ABG Sodium ABG Potassium ABG Chloride ABG Glucose 151 H VBG pH Oxyhemoglobin Carboxyhemoglobin Sodium Potassium Chloride Carbon Dioxide 32 H BUN 103 H Creatinine 2.7 H Glucose 151 H POC Glucose 135 H Lactic Acid Calcium Phosphorus Magnesium Total Bilirubin AST ALT Ammonia Lactate Dehydrogenase Total Creatine Kinase CK-MB (CK-2) Troponin T NT-Pro-B Natriuret Pep Total Protein Albumin Triglycerides TSH Arterial Blood Glucose 151 H Arterial Blood Ionized Calcium Urine pH Urine WBC (Auto) Urine Creatinine 10/22/20 10/22/20 10/22/20 06:18 11:34 11:44 WBC RBC Hgb Hct RDW Lymph % (Auto) [place] % (Auto) Lymph # (Auto) [place] # (Auto) Seg Neutrophils % Lymphocytes % (Manual) Monocytes % (Manual) Seg Neutrophils # Seg Neutrophils # Man Lymphocytes # (Manual) Monocytes # (Manual) D-Dimer Heparin Anti-Xa Level ABG pH 7.278 L POC ABG pCO2 67.8 H POC ABG pO2 ABG pO2 ABG HCO3 ABG O2 Saturation ABG Base Excess ABG Hemoglobin 10.2 L ABG Oxyhemoglobin ABG Sodium ABG Potassium ABG Chloride ABG Glucose 172 H VBG pH Oxyhemoglobin Carboxyhemoglobin Sodium Potassium Chloride Carbon Dioxide BUN Creatinine Glucose POC Glucose 137 H 147 H Lactic Acid Calcium Phosphorus Magnesium Total Bilirubin AST ALT Ammonia Lactate Dehydrogenase Total Creatine Kinase CK-MB (CK-2) Troponin T NT-Pro-B Natriuret Pep Total Protein Albumin Triglycerides TSH Arterial Blood Glucose 172 H Arterial Blood Ionized Calcium Urine pH Urine WBC (Auto) Urine Creatinine 10/22/20 10/22/20 10/23/20 17:40 23:55 05:11 WBC RBC Hgb Hct RDW Lymph % (Auto) [place] % (Auto) Lymph # (Auto) [place] # (Auto) Seg Neutrophils % Lymphocytes % (Manual) Monocytes % (Manual) Seg Neutrophils # Seg Neutrophils # Man Lymphocytes # (Manual) Monocytes # (Manual) D-Dimer Heparin Anti-Xa Level ABG pH POC ABG pCO2 63.6 H POC ABG pO2 81.2 L ABG pO2 ABG HCO3 ABG O2 Saturation ABG Base Excess ABG Hemoglobin 10.6 L ABG Oxyhemoglobin ABG Sodium ABG Potassium ABG Chloride 109.0 H ABG Glucose 149 H VBG pH Oxyhemoglobin Carboxyhemoglobin Sodium Potassium Chloride Carbon Dioxide BUN Creatinine Glucose POC Glucose 141 H 139 H Lactic Acid Calcium Phosphorus Magnesium Total Bilirubin AST ALT Ammonia Lactate Dehydrogenase Total Creatine Kinase CK-MB (CK-2) Troponin T NT-Pro-B Natriuret Pep Total Protein Albumin Triglycerides TSH Arterial Blood Glucose 149 H Arterial Blood Ionized Calcium Urine pH Urine WBC (Auto) Urine Creatinine 10/23/20 10/23/20 10/23/20 05:39 06:00 11:32 WBC RBC Hgb Hct RDW Lymph % (Auto) [place] % (Auto) Lymph # (Auto) [place] # (Auto) Seg Neutrophils % Lymphocytes % (Manual) Monocytes % (Manual) Seg Neutrophils # Seg Neutrophils # Man Lymphocytes # (Manual) Monocytes # (Manual) D-Dimer Heparin Anti-Xa Level ABG pH POC ABG pCO2 POC ABG pO2 ABG pO2 ABG HCO3 ABG O2 Saturation ABG Base Excess ABG Hemoglobin ABG Oxyhemoglobin ABG Sodium ABG Potassium ABG Chloride ABG Glucose VBG pH Oxyhemoglobin Carboxyhemoglobin Sodium 146 H Potassium Chloride Carbon Dioxide 35 H BUN 92 H Creatinine 2.0 H Glucose 144 H POC Glucose 139 H 176 H Lactic Acid Calcium Phosphorus Magnesium Total Bilirubin AST ALT Ammonia Lactate Dehydrogenase Total Creatine Kinase CK-MB (CK-2) Troponin T NT-Pro-B Natriuret Pep Total Protein Albumin Triglycerides TSH Arterial Blood Glucose Arterial Blood Ionized Calcium Urine pH Urine WBC (Auto) Urine Creatinine 10/23/20 10/23/20 10/24/20 11:34 17:55 05:33 WBC RBC Hgb Hct RDW Lymph % (Auto) [place] % (Auto) Lymph # (Auto) [place] # (Auto) Seg Neutrophils % Lymphocytes % (Manual) Monocytes % (Manual) Seg Neutrophils # Seg Neutrophils # Man Lymphocytes # (Manual) Monocytes # (Manual) D-Dimer Heparin Anti-Xa Level ABG pH POC ABG pCO2 POC ABG pO2 ABG pO2 ABG HCO3 ABG O2 Saturation ABG Base Excess ABG Hemoglobin ABG Oxyhemoglobin ABG Sodium ABG Potassium ABG Chloride ABG Glucose VBG pH Oxyhemoglobin Carboxyhemoglobin Sodium 147 H Potassium Chloride Carbon Dioxide 32 H BUN 76 H Creatinine 1.7 H Glucose 172 H POC Glucose 173 H 135 H Lactic Acid Calcium Phosphorus Magnesium Total Bilirubin AST ALT Ammonia Lactate Dehydrogenase Total Creatine Kinase CK-MB (CK-2) Troponin T NT-Pro-B Natriuret Pep Total Protein Albumin Triglycerides TSH Arterial Blood Glucose Arterial Blood Ionized Calcium Urine pH Urine WBC (Auto) Urine Creatinine 10/24/20 10/24/20 10/24/20 05:41 12:09 18:09 WBC RBC Hgb Hct RDW Lymph % (Auto) [place] % (Auto) Lymph # (Auto) [place] # (Auto) Seg Neutrophils % Lymphocytes % (Manual) Monocytes % (Manual) Seg Neutrophils # Seg Neutrophils # Man Lymphocytes # (Manual) Monocytes # (Manual) D-Dimer Heparin Anti-Xa Level ABG pH POC ABG pCO2 POC ABG pO2 ABG pO2 ABG HCO3 ABG O2 Saturation ABG Base Excess ABG Hemoglobin ABG Oxyhemoglobin ABG Sodium ABG Potassium ABG Chloride ABG Glucose VBG pH Oxyhemoglobin Carboxyhemoglobin Sodium Potassium Chloride Carbon Dioxide BUN Creatinine Glucose POC Glucose 156 H 154 H 132 H Lactic Acid Calcium Phosphorus Magnesium Total Bilirubin AST ALT Ammonia Lactate Dehydrogenase Total Creatine Kinase CK-MB (CK-2) Troponin T NT-Pro-B Natriuret Pep Total Protein Albumin Triglycerides TSH Arterial Blood Glucose Arterial Blood Ionized Calcium Urine pH Urine WBC (Auto) Urine Creatinine 10/24/20 10/25/20 10/25/20 23:39 05:29 08:55 WBC RBC Hgb Hct RDW Lymph % (Auto) [place] % (Auto) Lymph # (Auto) [place] # (Auto) Seg Neutrophils % Lymphocytes % (Manual) Monocytes % (Manual) Seg Neutrophils # Seg Neutrophils # Man Lymphocytes # (Manual) Monocytes # (Manual) D-Dimer Heparin Anti-Xa Level ABG pH POC ABG pCO2 POC ABG pO2 ABG pO2 ABG HCO3 ABG O2 Saturation ABG Base Excess ABG Hemoglobin ABG Oxyhemoglobin ABG Sodium ABG Potassium ABG Chloride ABG Glucose VBG pH Oxyhemoglobin Carboxyhemoglobin Sodium 150 H Potassium Chloride 108.3 H Carbon Dioxide 32 H BUN 57 H Creatinine 1.5 H Glucose 142 H POC Glucose 131 H 142 H Lactic Acid Calcium Phosphorus Magnesium Total Bilirubin AST ALT Ammonia Lactate Dehydrogenase Total Creatine Kinase CK-MB (CK-2) Troponin T NT-Pro-B Natriuret Pep Total Protein Albumin Triglycerides TSH Arterial Blood Glucose Arterial Blood Ionized Calcium Urine pH Urine WBC (Auto) Urine Creatinine 10/25/20 10/25/20 10/25/20 08:55 11:08 18:10 WBC 14.3 H RBC 3.57 L Hgb 10.3 L Hct 31.6 L RDW Lymph % (Auto) [place] % (Auto) Lymph # (Auto) [place] # (Auto) Seg Neutrophils % Lymphocytes % (Manual) Monocytes % (Manual) Seg Neutrophils # Seg Neutrophils # Man Lymphocytes # (Manual) Monocytes # (Manual) D-Dimer Heparin Anti-Xa Level ABG pH POC ABG pCO2 52.3 H POC ABG pO2 ABG pO2 ABG HCO3 ABG O2 Saturation ABG Base Excess ABG Hemoglobin 11.2 L ABG Oxyhemoglobin ABG Sodium ABG Potassium ABG Chloride 108.0 H ABG Glucose 167 H VBG pH Oxyhemoglobin Carboxyhemoglobin Sodium Potassium Chloride Carbon Dioxide BUN Creatinine Glucose POC Glucose 157 H Lactic Acid Calcium Phosphorus Magnesium Total Bilirubin AST ALT Ammonia Lactate Dehydrogenase Total Creatine Kinase CK-MB (CK-2) Troponin T NT-Pro-B Natriuret Pep Total Protein Albumin Triglycerides TSH Arterial Blood Glucose 167 H Arterial Blood Ionized Calcium Urine pH Urine WBC (Auto) Urine Creatinine 10/25/20 10/26/20 10/26/20 18:20 00:20 06:08 WBC RBC Hgb Hct RDW Lymph % (Auto) [place] % (Auto) Lymph # (Auto) [place] # (Auto) Seg Neutrophils % Lymphocytes % (Manual) Monocytes % (Manual) Seg Neutrophils # Seg Neutrophils # Man Lymphocytes # (Manual) Monocytes # (Manual) D-Dimer Heparin Anti-Xa Level ABG pH POC ABG pCO2 POC ABG pO2 ABG pO2 ABG HCO3 ABG O2 Saturation ABG Base Excess ABG Hemoglobin ABG Oxyhemoglobin ABG Sodium ABG Potassium ABG Chloride ABG Glucose VBG pH Oxyhemoglobin Carboxyhemoglobin Sodium Potassium Chloride Carbon Dioxide BUN Creatinine Glucose POC Glucose 127 H 108 H 119 H Lactic Acid Calcium Phosphorus Magnesium Total Bilirubin AST ALT Ammonia Lactate Dehydrogenase Total Creatine Kinase CK-MB (CK-2) Troponin T NT-Pro-B Natriuret Pep Total Protein Albumin Triglycerides TSH Arterial Blood Glucose Arterial Blood Ionized Calcium Urine pH Urine WBC (Auto) Urine Creatinine 10/26/20 10/26/20 10/26/20 07:38 07:38 11:28 WBC 13.5 H RBC 3.37 L Hgb 9.8 L Hct 30.0 L RDW Lymph % (Auto) [place] % (Auto) Lymph # (Auto) [place] # (Auto) Seg Neutrophils % Lymphocytes % (Manual) Monocytes % (Manual) Seg Neutrophils # Seg Neutrophils # Man Lymphocytes # (Manual) Monocytes # (Manual) D-Dimer Heparin Anti-Xa Level ABG pH POC ABG pCO2 POC ABG pO2 ABG pO2 ABG HCO3 ABG O2 Saturation ABG Base Excess ABG Hemoglobin ABG Oxyhemoglobin ABG Sodium ABG Potassium ABG Chloride ABG Glucose VBG pH Oxyhemoglobin Carboxyhemoglobin Sodium 149 H Potassium Chloride 107.6 H Carbon Dioxide 34 H BUN 49 H Creatinine 1.4 H Glucose 137 H POC Glucose 148 H Lactic Acid Calcium Phosphorus Magnesium Total Bilirubin AST ALT Ammonia Lactate Dehydrogenase Total Creatine Kinase CK-MB (CK-2) Troponin T NT-Pro-B Natriuret Pep Total Protein Albumin Triglycerides TSH Arterial Blood Glucose Arterial Blood Ionized Calcium Urine pH Urine WBC (Auto) Urine Creatinine 10/26/20 10/26/20 10/27/20 18:17 23:37 05:08 WBC RBC Hgb Hct RDW Lymph % (Auto) [place] % (Auto) Lymph # (Auto) [place] # (Auto) Seg Neutrophils % Lymphocytes % (Manual) Monocytes % (Manual) Seg Neutrophils # Seg Neutrophils # Man Lymphocytes # (Manual) Monocytes # (Manual) D-Dimer Heparin Anti-Xa Level ABG pH POC ABG pCO2 POC ABG pO2 ABG pO2 ABG HCO3 ABG O2 Saturation ABG Base Excess ABG Hemoglobin ABG Oxyhemoglobin ABG Sodium ABG Potassium ABG Chloride ABG Glucose VBG pH Oxyhemoglobin Carboxyhemoglobin Sodium Potassium Chloride Carbon Dioxide BUN Creatinine Glucose POC Glucose 121 H 152 H 120 H Lactic Acid Calcium Phosphorus Magnesium Total Bilirubin AST ALT Ammonia Lactate Dehydrogenase Total Creatine Kinase CK-MB (CK-2) Troponin T NT-Pro-B Natriuret Pep Total Protein Albumin Triglycerides TSH Arterial Blood Glucose Arterial Blood Ionized Calcium Urine pH Urine WBC (Auto) Urine Creatinine 10/27/20 10/27/20 10/27/20 07:30 07:30 11:59 WBC RBC 3.46 L Hgb 10.2 L Hct 30.9 L RDW Lymph % (Auto) [place] % (Auto) Lymph # (Auto) [place] # (Auto) Seg Neutrophils % Lymphocytes % (Manual) Monocytes % (Manual) Seg Neutrophils # Seg Neutrophils # Man Lymphocytes # (Manual) Monocytes # (Manual) D-Dimer Heparin Anti-Xa Level ABG pH POC ABG pCO2 POC ABG pO2 ABG pO2 ABG HCO3 ABG O2 Saturation ABG Base Excess ABG Hemoglobin ABG Oxyhemoglobin ABG Sodium ABG Potassium ABG Chloride ABG Glucose VBG pH Oxyhemoglobin Carboxyhemoglobin Sodium 146 H Potassium Chloride Carbon Dioxide 34 H BUN 45 H Creatinine Glucose 131 H POC Glucose 143 H Lactic Acid Calcium Phosphorus Magnesium Total Bilirubin AST ALT Ammonia Lactate Dehydrogenase Total Creatine Kinase CK-MB (CK-2) Troponin T NT-Pro-B Natriuret Pep Total Protein Albumin Triglycerides TSH Arterial Blood Glucose Arterial Blood Ionized Calcium Urine pH Urine WBC (Auto) Urine Creatinine 10/27/20 10/27/20 10/28/20 18:52 23:03 07:00 WBC RBC Hgb Hct RDW Lymph % (Auto) [place] % (Auto) Lymph # (Auto) [place] # (Auto) Seg Neutrophils % Lymphocytes % (Manual) Monocytes % (Manual) Seg Neutrophils # Seg Neutrophils # Man Lymphocytes # (Manual) Monocytes # (Manual) D-Dimer Heparin Anti-Xa Level ABG pH POC ABG pCO2 POC ABG pO2 ABG pO2 ABG HCO3 ABG O2 Saturation ABG Base Excess ABG Hemoglobin ABG Oxyhemoglobin ABG Sodium ABG Potassium ABG Chloride ABG Glucose VBG pH Oxyhemoglobin Carboxyhemoglobin Sodium 147 H Potassium Chloride Carbon Dioxide 35 H BUN 39 H Creatinine Glucose 133 H POC Glucose 119 H 158 H Lactic Acid Calcium Phosphorus Magnesium Total Bilirubin AST ALT Ammonia Lactate Dehydrogenase Total Creatine Kinase CK-MB (CK-2) Troponin T NT-Pro-B Natriuret Pep Total Protein Albumin Triglycerides TSH Arterial Blood Glucose Arterial Blood Ionized Calcium Urine pH Urine WBC (Auto) Urine Creatinine 10/28/20 10/28/20 10/28/20 09:00 11:47 17:15 WBC 12.5 H RBC 3.58 L Hgb 10.5 L Hct 32.1 L RDW Lymph % (Auto) [place] % (Auto) Lymph # (Auto) [place] # (Auto) Seg Neutrophils % Lymphocytes % (Manual) Monocytes % (Manual) Seg Neutrophils # Seg Neutrophils # Man Lymphocytes # (Manual) Monocytes # (Manual) D-Dimer Heparin Anti-Xa Level ABG pH POC ABG pCO2 POC ABG pO2 ABG pO2 ABG HCO3 ABG O2 Saturation ABG Base Excess ABG Hemoglobin ABG Oxyhemoglobin ABG Sodium ABG Potassium ABG Chloride ABG Glucose VBG pH Oxyhemoglobin Carboxyhemoglobin Sodium Potassium Chloride Carbon Dioxide BUN Creatinine Glucose POC Glucose 129 H 109 H Lactic Acid Calcium Phosphorus Magnesium Total Bilirubin AST ALT Ammonia Lactate Dehydrogenase Total Creatine Kinase CK-MB (CK-2) Troponin T NT-Pro-B Natriuret Pep Total Protein Albumin Triglycerides TSH Arterial Blood Glucose Arterial Blood Ionized Calcium Urine pH Urine WBC (Auto) Urine Creatinine 10/28/20 10/29/20 10/29/20 23:31 04:23 04:23 WBC 13.6 H RBC 3.47 L Hgb 10.5 L Hct 30.7 L RDW 15.4 H Lymph % (Auto) [place] % (Auto) Lymph # (Auto) [place] # (Auto) Seg Neutrophils % Lymphocytes % (Manual) Monocytes % (Manual) Seg Neutrophils # Seg Neutrophils # Man Lymphocytes # (Manual) Monocytes # (Manual) D-Dimer Heparin Anti-Xa Level ABG pH POC ABG pCO2 POC ABG pO2 ABG pO2 ABG HCO3 ABG O2 Saturation ABG Base Excess ABG Hemoglobin ABG Oxyhemoglobin ABG Sodium ABG Potassium ABG Chloride ABG Glucose VBG pH Oxyhemoglobin Carboxyhemoglobin Sodium Potassium Chloride Carbon Dioxide 35 H BUN 34 H Creatinine Glucose 107 H POC Glucose 138 H Lactic Acid Calcium Phosphorus Magnesium Total Bilirubin AST ALT Ammonia Lactate Dehydrogenase Total Creatine Kinase CK-MB (CK-2) Troponin T NT-Pro-B Natriuret Pep Total Protein Albumin Triglycerides TSH Arterial Blood Glucose Arterial Blood Ionized Calcium Urine pH Urine WBC (Auto) Urine Creatinine 10/29/20 10/29/20 10/29/20 05:21 11:49 23:19 WBC RBC Hgb Hct RDW Lymph % (Auto) [place] % (Auto) Lymph # (Auto) [place] # (Auto) Seg Neutrophils % Lymphocytes % (Manual) Monocytes % (Manual) Seg Neutrophils # Seg Neutrophils # Man Lymphocytes # (Manual) Monocytes # (Manual) D-Dimer Heparin Anti-Xa Level ABG pH POC ABG pCO2 POC ABG pO2 ABG pO2 ABG HCO3 ABG O2 Saturation ABG Base Excess ABG Hemoglobin ABG Oxyhemoglobin ABG Sodium ABG Potassium ABG Chloride ABG Glucose VBG pH Oxyhemoglobin Carboxyhemoglobin Sodium Potassium Chloride Carbon Dioxide BUN Creatinine Glucose POC Glucose 115 H 124 H 129 H Lactic Acid Calcium Phosphorus Magnesium Total Bilirubin AST ALT Ammonia Lactate Dehydrogenase Total Creatine Kinase CK-MB (CK-2) Troponin T NT-Pro-B Natriuret Pep Total Protein Albumin Triglycerides TSH Arterial Blood Glucose Arterial Blood Ionized Calcium Urine pH Urine WBC (Auto) Urine Creatinine 10/30/20 10/30/20 10/30/20 04:59 05:10 11:52 WBC RBC Hgb Hct RDW Lymph % (Auto) [place] % (Auto) Lymph # (Auto) [place] # (Auto) Seg Neutrophils % Lymphocytes % (Manual) Monocytes % (Manual) Seg Neutrophils # Seg Neutrophils # Man Lymphocytes # (Manual) Monocytes # (Manual) D-Dimer Heparin Anti-Xa Level ABG pH POC ABG pCO2 POC ABG pO2 ABG pO2 ABG HCO3 ABG O2 Saturation ABG Base Excess ABG Hemoglobin ABG Oxyhemoglobin ABG Sodium ABG Potassium ABG Chloride ABG Glucose VBG pH Oxyhemoglobin Carboxyhemoglobin Sodium Potassium Chloride Carbon Dioxide 34 H BUN 33 H Creatinine Glucose 128 H POC Glucose 126 H 132 H Lactic Acid Calcium Phosphorus Magnesium Total Bilirubin AST ALT Ammonia Lactate Dehydrogenase Total Creatine Kinase CK-MB (CK-2) Troponin T NT-Pro-B Natriuret Pep Total Protein Albumin Triglycerides TSH Arterial Blood Glucose Arterial Blood Ionized Calcium Urine pH Urine WBC (Auto) Urine Creatinine 10/30/20 10/30/20 10/31/20 16:59 23:19 04:00 WBC RBC Hgb Hct RDW Lymph % (Auto) [place] % (Auto) Lymph # (Auto) [place] # (Auto) Seg Neutrophils % Lymphocytes % (Manual) Monocytes % (Manual) Seg Neutrophils # Seg Neutrophils # Man Lymphocytes # (Manual) Monocytes # (Manual) D-Dimer Heparin Anti-Xa Level ABG pH POC ABG pCO2 POC ABG pO2 ABG pO2 ABG HCO3 ABG O2 Saturation ABG Base Excess ABG Hemoglobin ABG Oxyhemoglobin ABG Sodium ABG Potassium ABG Chloride ABG Glucose VBG pH Oxyhemoglobin Carboxyhemoglobin Sodium Potassium Chloride Carbon Dioxide 38 H BUN 32 H Creatinine Glucose 121 H POC Glucose 118 H 138 H Lactic Acid Calcium Phosphorus Magnesium Total Bilirubin AST ALT Ammonia Lactate Dehydrogenase Total Creatine Kinase CK-MB (CK-2) Troponin T NT-Pro-B Natriuret Pep Total Protein Albumin Triglycerides TSH Arterial Blood Glucose Arterial Blood Ionized Calcium Urine pH Urine WBC (Auto) Urine Creatinine 10/31/20 10/31/20 10/31/20 05:13 11:09 16:17 WBC RBC Hgb Hct RDW Lymph % (Auto) [place] % (Auto) Lymph # (Auto) [place] # (Auto) Seg Neutrophils % Lymphocytes % (Manual) Monocytes % (Manual) Seg Neutrophils # Seg Neutrophils # Man Lymphocytes # (Manual) Monocytes # (Manual) D-Dimer Heparin Anti-Xa Level ABG pH POC ABG pCO2 71.1 H POC ABG pO2 67.4 L ABG pO2 ABG HCO3 ABG O2 Saturation ABG Base Excess ABG Hemoglobin 10.9 L ABG Oxyhemoglobin 90.7 L ABG Sodium ABG Potassium ABG Chloride ABG Glucose 134 H VBG pH Oxyhemoglobin Carboxyhemoglobin Sodium Potassium Chloride Carbon Dioxide BUN Creatinine Glucose POC Glucose 110 H 138 H Lactic Acid Calcium Phosphorus Magnesium Total Bilirubin AST ALT Ammonia Lactate Dehydrogenase Total Creatine Kinase CK-MB (CK-2) Troponin T NT-Pro-B Natriuret Pep Total Protein Albumin Triglycerides TSH Arterial Blood Glucose 134 H Arterial Blood Ionized Calcium Urine pH Urine WBC (Auto) Urine Creatinine 10/31/20 10/31/20 11/01/20 18:16 23:56 04:09 WBC 11.3 H RBC 3.05 L Hgb 9.0 L Hct 27.3 L RDW Lymph % (Auto) [place] % (Auto) Lymph # (Auto) [place] # (Auto) Seg Neutrophils % Lymphocytes % (Manual) Monocytes % (Manual) Seg Neutrophils # Seg Neutrophils # Man Lymphocytes # (Manual) Monocytes # (Manual) D-Dimer Heparin Anti-Xa Level ABG pH POC ABG pCO2 POC ABG pO2 ABG pO2 ABG HCO3 ABG O2 Saturation ABG Base Excess ABG Hemoglobin ABG Oxyhemoglobin ABG Sodium ABG Potassium ABG Chloride ABG Glucose VBG pH Oxyhemoglobin Carboxyhemoglobin Sodium Potassium Chloride Carbon Dioxide BUN Creatinine Glucose POC Glucose 135 H 122 H Lactic Acid Calcium Phosphorus Magnesium Total Bilirubin AST ALT Ammonia Lactate Dehydrogenase Total Creatine Kinase CK-MB (CK-2) Troponin T NT-Pro-B Natriuret Pep Total Protein Albumin Triglycerides TSH Arterial Blood Glucose Arterial Blood Ionized Calcium Urine pH Urine WBC (Auto) Urine Creatinine 11/01/20 11/01/20 11/01/20 05:10 11:51 17:17 WBC RBC Hgb Hct RDW Lymph % (Auto) [place] % (Auto) Lymph # (Auto) [place] # (Auto) Seg Neutrophils % Lymphocytes % (Manual) Monocytes % (Manual) Seg Neutrophils # Seg Neutrophils # Man Lymphocytes # (Manual) Monocytes # (Manual) D-Dimer Heparin Anti-Xa Level ABG pH POC ABG pCO2 POC ABG pO2 ABG pO2 ABG HCO3 ABG O2 Saturation ABG Base Excess ABG Hemoglobin ABG Oxyhemoglobin ABG Sodium ABG Potassium ABG Chloride ABG Glucose VBG pH Oxyhemoglobin Carboxyhemoglobin Sodium Potassium Chloride Carbon Dioxide BUN Creatinine Glucose POC Glucose 123 H 123 H 120 H Lactic Acid Calcium Phosphorus Magnesium Total Bilirubin AST ALT Ammonia Lactate Dehydrogenase Total Creatine Kinase CK-MB (CK-2) Troponin T NT-Pro-B Natriuret Pep Total Protein Albumin Triglycerides TSH Arterial Blood Glucose Arterial Blood Ionized Calcium Urine pH Urine WBC (Auto) Urine Creatinine 11/02/20 11/02/20 11/02/20 03:14 05:37 05:37 WBC RBC Hgb 9.8 L Hct 29.5 L RDW Lymph % (Auto) [place] % (Auto) Lymph # (Auto) [place] # (Auto) Seg Neutrophils % Lymphocytes % (Manual) Monocytes % (Manual) Seg Neutrophils # Seg Neutrophils # Man Lymphocytes # (Manual) Monocytes # (Manual) D-Dimer Heparin Anti-Xa Level ABG pH POC ABG pCO2 58.9 H POC ABG pO2 79.9 L ABG pO2 ABG HCO3 ABG O2 Saturation ABG Base Excess ABG Hemoglobin 10.6 L ABG Oxyhemoglobin ABG Sodium ABG Potassium ABG Chloride ABG Glucose 110 H VBG pH Oxyhemoglobin Carboxyhemoglobin Sodium Potassium Chloride Carbon Dioxide 37 H BUN 28 H Creatinine Glucose 106 H POC Glucose Lactic Acid Calcium Phosphorus Magnesium Total Bilirubin AST ALT Ammonia Lactate Dehydrogenase Total Creatine Kinase CK-MB (CK-2) Troponin T NT-Pro-B Natriuret Pep Total Protein Albumin Triglycerides TSH Arterial Blood Glucose 110 H Arterial Blood Ionized Calcium Urine pH Urine WBC (Auto) Urine Creatinine 11/02/20 11/03/20 11/03/20 23:29 04:45 04:45 WBC 11.8 H RBC 3.07 L Hgb 9.0 L Hct 27.2 L RDW Lymph % (Auto) 11.4 L [place] % (Auto) 9.5 H Lymph # (Auto) [place] # (Auto) 1.1 H Seg Neutrophils % 75.9 H Lymphocytes % (Manual) Monocytes % (Manual) Seg Neutrophils # 9.0 H Seg Neutrophils # Man Lymphocytes # (Manual) Monocytes # (Manual) D-Dimer Heparin Anti-Xa Level ABG pH POC ABG pCO2 POC ABG pO2 ABG pO2 ABG HCO3 ABG O2 Saturation ABG Base Excess ABG Hemoglobin ABG Oxyhemoglobin ABG Sodium ABG Potassium ABG Chloride ABG Glucose VBG pH Oxyhemoglobin Carboxyhemoglobin Sodium 146 H Potassium Chloride Carbon Dioxide 39 H BUN 26 H Creatinine Glucose POC Glucose 129 H Lactic Acid Calcium Phosphorus Magnesium Total Bilirubin AST ALT Ammonia Lactate Dehydrogenase Total Creatine Kinase CK-MB (CK-2) Troponin T NT-Pro-B Natriuret Pep Total Protein Albumin Triglycerides TSH Arterial Blood Glucose Arterial Blood Ionized Calcium Urine pH Urine WBC (Auto) Urine Creatinine 11/03/20 05:05 WBC RBC Hgb Hct RDW Lymph % (Auto) [place] % (Auto) Lymph # (Auto) [place] # (Auto) Seg Neutrophils % Lymphocytes % (Manual) Monocytes % (Manual) Seg Neutrophils # Seg Neutrophils # Man Lymphocytes # (Manual) Monocytes # (Manual) D-Dimer Heparin Anti-Xa Level ABG pH 7.452 H POC ABG pCO2 55.4 H POC ABG pO2 129.1 H ABG pO2 ABG HCO3 ABG O2 Saturation ABG Base Excess ABG Hemoglobin 9.3 L ABG Oxyhemoglobin ABG Sodium ABG Potassium ABG Chloride ABG Glucose 99 H VBG pH Oxyhemoglobin Carboxyhemoglobin 1.7 H Sodium Potassium Chloride Carbon Dioxide BUN Creatinine Glucose POC Glucose Lactic Acid Calcium Phosphorus Magnesium Total Bilirubin AST ALT Ammonia Lactate Dehydrogenase Total Creatine Kinase CK-MB (CK-2) Troponin T NT-Pro-B Natriuret Pep Total Protein Albumin Triglycerides TSH Arterial Blood Glucose 99 H Arterial Blood Ionized Calcium Urine pH Urine WBC (Auto) Urine Creatinine Chest x-ray: image reviewed (interstitial infiltrates bilaterally) Allied health notes reviewed: nursing
[2020-11-03] MEDS: FUROSEMIDE 20 MG/2 ML INJ IV SCH (12:46)
--- NOTE | 2020-11-03 15:41 | Progress Note ---
<JOIJOI MargauxSee - Last Filed: 11/03/20 15:43> Assessment and Plan Assessment and plan: This is a 55-year-old male with hypertension, asthma, obesity who was admitted on 10/10 after cardiac arrest x2 (supposedly after COVID-19 vaccine injection), sepsis, right-sided pneumonia, NSTEMI type II, acute heart failure, acute hypoxic respiratory failure, acute kidney injury and anoxic brain injury. Sepsis s/p multiple Cardiac Arrests S/p right-sided pneumonia MRSA in tracheal aspirate NSTEMI type II Acute heart failure Afib/Aflutter Leukocytosis Acute hypoxic respiratory failure Acute kidney injury (improved) Transaminitis HTN Obesity -Infectious disease, CCM, GI, nephrology, cardiology, surgery consulted, appreciate recommendations -Antibiotic therapy -10/18 recultured (blood/sputum/nasal discharge and urinalysis), tracheal aspirate with MRSA -S/p Linezolid -Continue antihypertensive regimen (changed to p.o.), titrate as needed -s/p IV amiodarone for A. fib/a flutter now on p.o. beta-shital -Trend CBC, BMP, LFT -trach/peg 10/27 -Resume SBT as tolerated -Avoid nephrotoxic medications, strict intake and output, renal ultrasound shows no obstruction -10/10 echocardiogram shows left internal systolic function normal, moderate concentric left ventricle hypertrophy, mild to side diastolic dysfunction, LVEF 55 to 60% with no pericardial effusion -Bilateral Doppler ultrasound negative for DVT/SVT which shows bilateral popliteal cysts -MRI Brain shows restricted diffusion and increased T2 signal cerebral cortex which can be seen in the setting of anoxic brain injury and/ or status epilepticus. -Repeat EEG shows significant generalized slowing compatible with to moderate severe diffuse neuropathy recently compatible with anoxic/ischemic encephalopathy -s/p D5W at 50ml/hr x 1 liter, currently on tube feedings and tolerating GI/DVT prophylaxis: SCDs to bilateral lower extremities while in bed, PPI, Heparin subq Dispo: ICU/ possible LTACH The high probability of a clinically significant, sudden or life threatening deterioration of the [multi] system(s) required my full and direct attention, intervention and personal management. The aggregate critical care time was [35] minutes. This time is in addition to time spent performing reported procedures but includes the following: [x] Data Review and interpretation [x] Patient assessment and monitoring of vital signs [x] Documentation [x] Medication orders and management History Interval history: This is a 55-year-old male with hypertension, asthma, obesity in the emergency by presented to the emergency department on 10/10 after receiving a Covid vaccine being found unresponsive in his car in the emergency room bay with no pulse and ACLS protocol was initiated from his car to emergency room #21 where it was continued. Patient was intubated after ROSC was achieved and a central line was placed and the patient was initiated on pressors. In the emergency room patient seems to have seizure-like activity and then collapsed and was unresponsive with no palpable pulse and ACLS was again initiated patient with achievement of ROSC. Patient again coded with ACLS protocol in the CT room. Upon arrival to the ICU patient again coded and ROSC was achieved and he was placed on epinephrine, Lasix, heparin and sodium bicarbonate drip and sedated with propofol. An NG tube was placed, A-line was placed. Patient was admitted to the hospitalist service with consult to [facility], nephrology, infectious disease and cardiology. 10/11: Patient COVID-19 PCR is pending and he remains on mechanical ventilation, examination on assist control 400/30/12/0.95. Patient is scheduled for an echocardiogram and we will obtain bilateral lower extremity Doppler ultrasound given elevated D-dimer. Patient was supposed to have a CTA chest when he coded yesterday. We will begin trickle feeding. This morning patient was on a heparin drip and was noted to have bloody drainage from his NG tube. Heparin drip was discontinued. 10/12: Patient remains on propofol and Lasix drip at the time my examination and he is on assist control 400/25/12/0.60. Patient is hypokalemic this morning which was repleted. Nephrology discontinued Lasix drip and Diamox. Patient is hypertensive and has been started on hydralazine and beta-shital IV. He has been titrated off his vasopressors since yesterday. Vancomycin discontinued. Patient is currently on cefepime and azithromycin. 10/13: Sedation vacation attempted today and patient was not responsive to verbal or painful stimuli, does not track or focus or follow commands. This morning the patient has some respiratory alkalosis on ABG, hypernatremia and metabolic al kalosis on BMP. His kidney functions has improved slightly. Patient still has leukocytosis and infectious disease was like to continue antibiotic therapy. GI evaluated the patient yesterday and started the patient on PPI does not plan to scope at this time. At the time my examination patient assist-control 400/20/12/0.40 and sedated on propofol at 20. 4/2: GI has recommended a CT abdomen since there is increased output from OG tube and an MRI brain without contrast has been ordered per neurology recommendations. EEG is pending and the patient has been started on Keppra per neurology.. Nutrition has been consulted for initiation of parenteral nutrition. Patient remains sedated with propofol and his hypernatremia, leukocytosis, acute kidney injury and metabolic alkalosis is improving. Patient has hypokalemia today which was repleted. At the time of my examination patient was on assist control 400/14/10/0.40 and CCM has dropped his rate to 12 and PEEP to 8. We have labs ordered for a.m. He was given a clonidine patch given persistent hypertension and he remains on D5 water per nephrology. 3: This morning patient was started to have a low-grade fever and he will continue antibiotic therapy per infectious disease. He will remove Tuttle catheter today and place a condom cath. Patient's renal function is worsening with a BUN/creatinine of 57/2.4 today and he has hyperphosphatemia at 5.2. This morning the time my examination patient is sedated on fentanyl and has TPN infusing. He is on assist control 400/12/8/0.35. Per GI we will start trial of tube feedings initiation has been reconsulted for orders. 10/18: Patient was febrile overnight and infectious disease has recultured (blood/sputum/right nostril culture) and sent in urinalysis. Cefepime was extended due to high fever and was started on vancomycin. Tube feeding is at goal and we will discontinue his parenteral nutrition. Patient is unable to obtain his MRI due to increased hypoxia and nasal secretions. He will be started on CPAP trials today. This time I examination patient was sedated on fentanyl and had PPN running at 42. His renal function tests have worsened and now has hyperchloremia. Hypernatremia has resolved. 10/19: Patient's T-max was 100.2 and he was pancultured yesterday, remains on antibiotic therapy and still has copious drainage from his nostrils. Patient still has leukocytosis however his/creatinine improved slightly to 3.1 from 3.3. Patient's urinalysis from yesterday shows pyuria. Patient's tracheal aspirate from yesterday grew Staph aureus. Patient is on cefepime and vancomycin. 10/20: This morning at the time my examination patient was CPAP trial of 10/6 and his T-max was 100.9. Patient sedated on fentanyl at 2 just received IV push fentanyl for tachycardia. Today his creatinine is 2.8 from 3.1 yesterday. Infectious disease has stopped cefepime and vancomycin and started linezolid and MRSA PCR is pending. Today removed his NG tube and replaced it with OG tube. We will keep the patient normal saline at 75 mL's per hour for 3 L. Patient developed A. fib/a flutter overnight and cardiology has increased his Lopressor and IV amiodarone. We requested neurology evaluation today. 10/21: Cardiology we will increase Lopressor to 3 times daily and discontinue his amiodarone drip. Infectious disease would like a sinus CT when feasible however patient did have a moment of desatting earlier this week when we attempted MRI brain. And again yesterday when we attempted a "trial run" with positioning at bedside Patient is on linezolid for 10 days per ID. 10/22/20; patient was seen and evaluated this morning, patient had low-grade fever overnight. Patient is on Lopressor per cardiology recommendation. Patient did not follow commands, no improvement in mental status. Evaluated by neurology yesterday and neurology once MRI or CAT scan but cannot be done because patient desats when he lies flat. Patient is on linezolid per ID recommendation. Continue NG tube feeding. Continue with Keppra. Patient is on assist control with PEEP of 6. Management plan was discussed with his yesterday. 10/23/2020; patient is on Zyvox for positive MRSA from tracheal aspirate and nasal secretion culture. Patient's mentation did not improve and does not follow commands. He was reevaluated by neurology and recommend MRI once patient is able to tolerate. MRI could not be done, CT scan could not be done because the patient could not lie flat. Clinically patient looks like she has anoxic encephalopathy. Patient is on NG tube feeding and on mechanical ventilation. Patient is on Keppra. Management plan was discussed with his . 10/24: This morning the patient is on AC TV 400,R 16, Peep 6 and FiO2 of 30% and sedated on 1mcg of Fentayl. He is hypernatremic and his kidney function tests have slightly improved. RN will attempt to obtain MRI Brain today since the patient was able to tolerate a "trial run" of being flat. [facility] plans to resume CPAP trials once MRI obtained. 10/25: This morning the time of examination patient was on assist control tidal volume 400, rate 16, PEEP 6, FiO2 30% and he is currently on CPAP. His MRI brain finding is consistent with status epilepticus or anoxic brain injury. Patient is EEG pending. No acute overnight events reported. 10/26: Patient has been on a CPAP trial 14/6 which she has been tolerating. Surgery was consulted for trach/PEG. Patient's hypernatremia and hyperchloremia slightly better as well as his kidney functions. He has received cardiac clearance for his trach and PEG. No acute events reported overnight. 10/27: At the time my examination patient was on CPAP trial 15/6 and 30% FiO2. Patient's electrolyte abnormalities were improving and sources kidney function. His T-max overnight was 99.3 and he remains on linezolid. No acute events reported overnight. 10/28: Yesterday patient had a trach and PEG placed. Patient remains n.p.o. as he has not been cleared by surgery to resume p.o. intake. Today he has slight leukocytosis which is likely reactive, hyponatremia, metabolic alkalosis however his kidney function continues to improve. No acute events overnight. 10/29: Plan to start tube feeding today, patient remains on mechanical ventilation with trach tube. Remains comatose without any change in mental status. Called and updated. 10/30: Vitals stable, patient remains on trach tube with ventilator. Tolerating tube feeding, otherwise clinically unchanged. Continue to provide supportive care and wean off from vent as tolerated. 10/31: No acute events reported overnight. Patient is CPAP at the time my examination however he will be tried on trach collar and we will obtain an ABG within 2 hours. 11/01. Patient is on a trach collar at 35% FiO2, he was reported, patient received Lasix and will obtain an ABG at 2100. dr. Torres updated his and his mother is at bedside visiting him. 11/02. Patient was rested on assist control due to "tube feedings" endotracheal tube however CXR looks mild atelectasis rather than pneumonia. [facility] has given th e patient another dose of Lasix and will obtain a CXR in the a.m. Patient remains with low-grade fever and we will resume daily SBT as tolerated. We will obtain a.m. labs and resume tube feedings. 11/03: Overnight the patient was rested on assist control and this afternoon he received CPAP trials. Patient's CXR looks pulmonary edema and he received additional 20 mg of Lasix today and tomorrow. Dr. Torres updated the patient's family via phone today and they do not wish to change his code status. Patient's Robinul and scopolamine was decreased. Hospitalist Physical - Constitutional Vitals: Temp Pulse Resp BP Pulse Ox 99.8 F H 88 21 129/70 99 11/03/20 12:18 11/03/20 14:46 11/03/20 12:52 11/03/20 14:46 11/03/20 12:52 General appearance: Present: no acute distress, well-nourished, other (opens eyes spontaneously, does not focus or track) - EENT Eyes: Present: PERRL ENT: poor dentition - Neck Neck: Present: normal ROM - Respiratory Respiratory: bilateral: rhonchi - Cardiovascular Rhythm: regular Heart Sounds: Present: S1 & S2. Absent: systolic murmur, diastolic murmur - Extremities Extremities: no ischemia, pulses intact, pulses symmetrical, normal temperature, normal color Peripheral Pulses: within normal limits - Abdominal General gastrointestinal: soft, non-tender, non-distended, normal bowel sounds - Integumentary Integumentary: Present: warm, dry - Psychiatric Psychiatric: other (does not follow commands, track/focus) - Neurologic Neurologic: other (Does not track/focus, follow commands, opens eyes spontaneously) HEART Score - HEART Score EKG: Non-specific Age: 45-65 Troponin: Troponin T 0.125 ng/mL (0.00-0.029) H* D 10/12/20 04:00 Troponin: 1-3x normal limit - Critical Actions Critical Actions: 4-6 pts:12-16.6% risk of adverse cardiac event. Should be admitted Results - Labs CBC & Chem 7: 11/03/20 04:45 11/03/20 04:45 Labs: Laboratory Last Values WBC 11.8 K/mm3 (4.5-11.0) H 11/03/20 04:45 RBC 3.07 M/mm3 (3.65-5.03) L 11/03/20 04:45 Hgb 9.0 gm/dl (11.8-15.2) L 11/03/20 04:45 Hct 27.2 % (35.5-45.6) L 11/03/20 04:45 MCV 89 fl (84-94) 11/03/20 04:45 MCH 29 pg (28-32) 11/03/20 04:45 MCHC 33 % (32-34) 11/03/20 04:45 RDW 14.9 % (13.2-15.2) 11/03/20 04:45 Plt Count 195 K/mm3 (140-440) 11/03/20 04:45 Lymph % (Auto) 11.4 % (13.4-35.0) L 11/03/20 04:45 [place] % (Auto) 9.5 % (0.0-7.3) H 11/03/20 04:45 Eos % (Auto) 2.7 % (0.0-4.3) 11/03/20 04:45 Baso % (Auto) 0.5 % (0.0-1.8) 11/03/20 04:45 Lymph # (Auto) 1.3 K/mm3 (1.2-5.4) 11/03/20 04:45 [place] # (Auto) 1.1 K/mm3 (0.0-0.8) H 11/03/20 04:45 Eos # (Auto) 0.3 K/mm3 (0.0-0.4) 11/03/20 04:45 Baso # (Auto) 0.1 K/mm3 (0.0-0.1) 11/03/20 04:45 Add Manual Diff Complete 10/10/20 18:18 Total Counted 100 10/10/20 18:18 Seg Neutrophils % 75.9 % (40.0-70.0) H 11/03/20 04:45 Seg Neuts % (Manual) 60.0 % (40.0-70.0) 10/10/20 18:18 Band Neutrophils % 27.0 % 10/10/20 18:18 Lymphocytes % (Manual) 4.0 % (13.4-35.0) L 10/10/20 18:18 Monocytes % (Manual) 9.0 % (0.0-7.3) H 10/10/20 18:18 Eosinophils % (Manual) 4.0 % (0.0-4.3) 10/10/20 10:48 Metamyelocytes % 1.0 % 10/10/20 10:48 Nucleated RBC % Not Reportable 10/10/20 18:18 Seg Neutrophils # 9.0 K/mm3 (1.8-7.7) H 11/03/20 04:45 Seg Neutrophils # Man 13.8 K/mm3 (1.8-7.7) H 10/10/20 18:18 Band Neutrophils # 6.2 K/mm3 10/10/20 18:18 Lymphocytes # (Manual) 0.9 K/mm3 (1.2-5.4) L 10/10/20 18:18 Abs React Lymphs (Man) 0.0 K/mm3 10/10/20 18:18 Monocytes # (Manual) 2.1 K/mm3 (0.0-0.8) H 10/10/20 18:18 Eosinophils # (Manual) 0.0 K/mm3 (0.0-0.4) 10/10/20 18:18 Basophils # (Manual) 0.0 K/mm3 (0.0-0.1) 10/10/20 18:18 Metamyelocytes # 0.0 K/mm3 10/10/20 18:18 Myelocytes # 0.0 K/mm3 10/10/20 18:18 Promyelocytes # 0.0 K/mm3 10/10/20 18:18 Blast Cells # 0.0 K/mm3 10/10/20 18:18 WBC Morphology Not Reportable 10/10/20 18:18 Hypersegmented Neuts Not Reportable 10/10/20 18:18 Hyposegmented Neuts Not Reportable 10/10/20 18:18 Hypogranular Neuts Not Reportable 10/10/20 18:18 Smudge Cells Not Reportable 10/10/20 18:18 Toxic Granulation Not Reportable 10/10/20 18:18 Toxic Vacuolation Not Reportable 10/10/20 18:18 Dohle Bodies Not Reportable 10/10/20 18:18 Pelger-Huet Anomaly Not Reportable 10/10/20 18:18 Dionicio Rods Not Reportable 10/10/20 18:18 Platelet Estimate Consistent w auto 10/10/20 18:18 Clumped Platelets Not Reportable 10/10/20 18:18 Plt Clumps, EDTA Not Reportable 10/10/20 18:18 Large Platelets Rare 10/10/20 18:18 Giant Platelets Rare 10/10/20 18:18 Platelet Satelliting Not Reportable 10/10/20 18:18 Plt Morphology Comment Not Reportable 10/10/20 18:18 RBC Morphology Not Reportable 10/10/20 18:18 Dimorphic RBCs Not Reportable 10/10/20 18:18 Polychromasia Not Reportable 10/10/20 18:18 Hypochromasia Not Reportable 10/10/20 18:18 Poikilocytosis Not Reportable 10/10/20 18:18 Anisocytosis Not Reportable 10/10/20 18:18 Microcytosis Not Reportable 10/10/20 18:18 Macrocytosis Not Reportable 10/10/20 18:18 Spherocytes Not Reportable 10/10/20 18:18 Pappenheimer Bodies Not Reportable 10/10/20 18:18 Sickle Cells Not Reportable 10/10/20 18:18 Target Cells Not Reportable 10/10/20 18:18 Tear Drop Cells Not Reportable 10/10/20 18:18 Ovalocytes Not Reportable 10/10/20 18:18 Helmet Cells Not Reportable 10/10/20 18:18 Medley-[place] Bodies Not Reportable 10/10/20 18:18 [place] Rings Not Reportable 10/10/20 18:18 Adelfo Cells Not Reportable 10/10/20 18:18 Bite Cells Not Reportable 10/10/20 18:18 Crenated Cell Not Reportable 10/10/20 18:18 Elliptocytes Not Reportable 10/10/20 18:18 Acanthocytes (Spur) Not Reportable 10/10/20 18:18 Rouleaux Not Reportable 10/10/20 18:18 Hemoglobin C Crystals Not Reportable 10/10/20 18:18 Schistocytes Not Reportable 10/10/20 18:18 Malaria parasites Not Reportable 10/10/20 18:18 Mauricio Bodies Not Reportable 10/10/20 18:18 Hem Pathologist Commnt No 10/10/20 18:18 PT 13.5 Sec. (12.2-14.9) 10/28/20 07:00 INR 1.05 (0.87-1.13) 10/28/20 07:00 APTT 26.9 Sec. (24.2-36.6) 10/10/20 18:18 D-Dimer 679.5 ng/mlDDU (0-234) H 10/10/20 10:48 Heparin Anti-Xa Level 0.22 U.I./ml (0.3-0.7) L 10/11/20 08:35 ABG pH 7.452 (7.320-7.450) H 11/03/20 05:05 POC ABG pCO2 55.4 mmHg (32.0-48.0) H 11/03/20 05:05 ABG pCO2 55.5 mm Hg 10/16/20 05:10 POC ABG pO2 129.1 mmHg (83-108) H 11/03/20 05:05 ABG pO2 104.5 mm Hg (80.0-90.0) H 10/16/20 05:10 POC ABG HCO3 37.8 11/03/20 05:05 ABG HCO3 35.1 mmol/L (20.0-26.0) H 10/16/20 05:10 ABG O2 Saturation 99.0 (0-100) 11/03/20 05:05 ABG O2 Content 10.8 (0.0-44) 10/16/20 05:10 POC ABG Base Excess 12.3 11/03/20 05:05 ABG Base Excess 9.5 mmol/L (-2.0-3.0) H 10/16/20 05:10 ABG Hemoglobin 9.3 (12.0-17.5) L 11/03/20 05:05 ABG Oxyhemoglobin 97.0 (94-98) 11/03/20 05:05 ABG Carboxyhemoglobin 1.9 % (0.0-5.0) 10/16/20 05:10 ABG Methemoglobin 0.3 (0.0-1.5) 11/03/20 05:05 ABG Sodium 138.7 mmol/L (136.0-145.0) 11/03/20 05:05 ABG Potassium 4.0 mmol/L (3.40-4.50) 11/03/20 05:05 ABG Chloride 101.0 mmol/L (98-107) 11/03/20 05:05 ABG Glucose 99 mg/dL (65-95) H 11/03/20 05:05 VBG pH 6.870 (7.320-7.420) L* 10/10/20 10:48 Oxyhemoglobin 95.3 % (95.0-99.0) 10/16/20 05:10 Carboxyhemoglobin 1.7 (0.5-1.5) H 11/03/20 05:05 FiO2 35 % 10/16/20 05:10 FiO2 % 40.0 11/03/20 05:05 Sodium 146 mmol/L (137-145) H 11/03/20 04:45 Potassium 4.4 mmol/L (3.6-5.0) 11/03/20 04:45 Chloride 100.8 mmol/L (98-107) 11/03/20 04:45 Carbon Dioxide 39 mmol/L (22-30) H 11/03/20 04:45 Anion Gap 11 mmol/L 11/03/20 04:45 BUN 26 mg/dL (9-20) H 11/03/20 04:45 Creatinine 1.1 mg/dL (0.8-1.3) 11/03/20 04:45 Estimated GFR > 60 ml/min 11/03/20 04:45 BUN/Creatinine Ratio 24 % 11/03/20 04:45 Glucose 86 mg/dL (75-100) 11/03/20 04:45 POC Glucose 82 mg/dL (70-105) 11/03/20 05:21 Hemoglobin A1c 6.0 % (4-6) 10/11/20 02:00 Lactic Acid 1.10 mmol/L (0.7-2.0) 10/13/20 04:52 Calcium 8.6 mg/dL (8.4-10.2) 11/03/20 04:45 Phosphorus 5.20 mg/dL (2.5-4.5) H D 10/17/20 03:32 Magnesium 2.30 mg/dL (1.7-2.3) 10/17/20 03:32 Ferritin 81.4 ng/mL (30.0-300.0) 10/10/20 10:48 Total Bilirubin 1.70 mg/dL (0.1-1.2) H 10/18/20 03:27 AST 37 units/L (5-40) 10/18/20 03:27 ALT 32 units/L (7-56) 10/18/20 03:27 Alkaline Phosphatase 97 units/L (35-129) 10/18/20 03:27 Ammonia 214.0 umol/L (25-60) H 10/10/20 10:46 Lactate Dehydrogenase 386 units/L (91-180) H 10/10/20 10:48 Total Creatine Kinase 1192 units/L (55-170) H 10/10/20 18:18 CK-MB (CK-2) 21.7 ng/mL (0.0-4.0) H 10/10/20 18:18 CK-MB (CK-2) Rel Index 1.8 (0-4) 10/10/20 18:18 Troponin T 0.125 ng/mL (0.00-0.029) H* D 10/12/20 04:00 C-Reactive Protein 0.90 mg/dL (0.00-1.30) 10/10/20 10:48 NT-Pro-B Natriuret Pep 1187 pg/mL (0-900) H 10/10/20 10:46 Total Protein 6.3 g/dL (6.3-8.2) 10/18/20 03:27 Albumin 3.1 g/dL (3.9-5) L 10/18/20 03:27 Albumin/Globulin Ratio 1.0 % 10/18/20 03:27 Triglycerides 278 mg/dL (2-149) H 10/13/20 04:52 Cholesterol 138 mg/dL (50-199) 10/10/20 18:18 LDL Cholesterol Direct 76 mg/dL (50-130) 10/10/20 18:18 HDL Cholesterol 49 mg/dL (40-59) 10/10/20 18:18 Cholesterol/HDL Ratio 2.81 % 10/10/20 18:18 Procalcitonin 4.98 ng/mL (<0.15) 10/15/20 04:12 TSH 6.260 mlU/mL (0.270-4.200) H 10/10/20 10:46 Arterial Blood Glucose 99 mg/dL (65-95) H 11/03/20 05:05 Arterial Blood Ionized Calcium 4.6 mg/dL (4.6-5.3) 11/03/20 05:05 Urine Color Angelica (Yellow) 10/18/20 Unknown Urine Turbidity Cloudy (Clear) 10/18/20 Unknown Urine pH 5.0 (5.0-7.0) 10/18/20 Unknown Ur Specific [place] 1.017 (1.003-1.030) 10/18/20 Unknown Urine Protein 100 mg/dl mg/dL (Negative) 10/18/20 Unknown Urine Glucose (UA) Neg mg/dL (Negative) 10/18/20 Unknown Urine Ketones Neg mg/dL (Negative) 10/18/20 Unknown Urine Blood Lg (Negative) 10/18/20 Unknown Urine Nitrite Neg (Negative) 10/18/20 Unknown Urine Bilirubin Neg (Negative) 10/18/20 Unknown Urine Urobilinogen 4.0 mg/dL (<2.0) 10/18/20 Unknown Ur Leukocyte Esterase Neg (Negative) 10/18/20 Unknown Urine WBC (Auto) 115.0 /HPF (0.0-6.0) H 10/18/20 Unknown Urine RBC (Auto) 98.0 /HPF (0.0-6.0) 10/18/20 Unknown U Epithel Cells (Auto) 2.0 /HPF (0-13.0) 10/18/20 Unknown Urine WBC Clumps 3+ /HPF 10/18/20 Unknown Urine Mucus Few /HPF 10/11/20 13:30 Urine Eosinophils None seen (None Seen) 10/11/20 13:30 Urine Creatinine 93.7 mg/dL (0.1-20.0) H 10/19/20 13:14 Urine Sodium 25 mmol/L 10/19/20 13:14 Urine Urea Nitrogen 845 10/19/20 13:14 Nasal Screen MRSA (PCR) Positive (Negative) 10/20/20 13:30 Random Vancomycin 5.8 ug/mL (0-40.0) 10/21/20 06:30 Urine Opiates Screen Negative 10/10/20 10:50 Urine Methadone Screen Negative 10/10/20 10:50 Ur Barbiturates Screen Negative 10/10/20 10:50 Ur Phencyclidine Scrn Negative 10/10/20 10:50 Ur Amphetamines Screen Negative 10/10/20 10:50 U Benzodiazepines Scrn Negative 10/10/20 10:50 Urine Cocaine Screen Negative 10/10/20 10:50 U Marijuana (THC) Screen Positive 10/10/20 10:50 Drugs of Abuse Note Disclamer 10/10/20 10:50 Plasma/Serum Alcohol < 0.01 % (0-0.07) 10/10/20 10:48 Coronavirus (PCR) Negative (Negative) 10/11/20 Unknown Blood Type AB POSITIVE 10/10/20 10:48 Antibody Screen Negative 10/10/20 10:48 Tuttle/IV: Voiding Method Incontinent Active Medications - Current Medications Current Medications: Generic Name Dose Route Start Last Admin Trade Name Freq PRN Reason Stop Dose Admin Acetaminophen 650 mg 10/10/20 21:51 10/20/20 09:11 Acetaminophen 325 Mg Tab PO 650 mg Q4H PRN Administration Pain MILD(1-3)/Fever >100.5/SALVADOR Acetaminophen 650 mg 10/11/20 11:24 10/17/20 17:16 Acetaminophen 650 Mg Rect Supp MN 650 mg Q6H PRN Administration Fever >101 Albuterol 2.5 mg 10/11/20 13:12 Albuterol 2.5 Mg/3 Ml Nebu IH Q6HRT PRN Shortness Of Breath Amlodipine Besylate 10 mg 10/25/20 13:00 11/03/20 09:36 Amlodipine 10 Mg Tab PO 10 mg QDAY PEPITO Administration Lipase/Protease/Amylase 1 each 10/10/20 22:18 Lipase 10,500/Protease 25,000/Amylase 43,750 (Units) Dr Santana FEEDTUBE PRN PRN For Clogged Feeding Tube Clonidine HCl 0.3 mg 10/14/20 15:00 10/28/20 14:58 Clonidine Tts 0.3 Mg/24 Hr Patch TD 0.3 mg Fr PEPITO Administration Docusate Sodium 100 mg 10/16/20 22:00 11/03/20 09:36 Docusate Sodium 100 Mg/10 Ml Oral Liqd PO 100 mg BID PEPITO Administration Furosemide 20 mg 11/02/20 14:00 11/02/20 14:06 Furosemide 20 Mg/2 Ml Inj IV 20 mg ONCE PEPITO Administration Furosemide 20 mg 11/03/20 13:00 11/03/20 12:46 Furosemide 20 Mg/2 Ml Inj IV 11/04/20 13:01 20 mg Q24H PEPITO Administration Glycopyrrolate 2 mg 11/03/20 14:00 11/03/20 14:46 Glycopyrrolate 2 Mg Tab PO 2 mg Q8H PEPITO Administration Heparin Sodium (Porcine) 5,000 unit 10/11/20 22:00 11/03/20 09:37 Heparin 5,000 Unit/1 Ml Vial SUB-Q 5,000 unit Q12HR PEPITO Administration Hydralazine HCl 100 mg 10/24/20 09:30 11/03/20 14:46 Hydralazine 25 Mg Tab PO 100 mg Q8HR PEPITO Administration Hydralazine HCl 10 mg 11/02/20 08:46 Hydralazine 20 Mg/1 Ml Inj IV Q6H PRN Hypertension Hydromorphone HCl 0.5 mg 11/01/20 20:55 11/02/20 21:00 Hydromorphone 1 Mg/1 Ml Inj IV 0.5 mg Q3H PRN Administration Pain , Severe (7-10) Hydrophilic Ointment 1 applic 10/10/20 10:34 Lip Therapy Vaseline TP Q2HR PRN Dry Lips Lansoprazole 30 mg 10/24/20 10:00 11/03/20 09:36 Lansoprazole 30 Mg Solutab FEEDTUBE 30 mg BID PEPITO Administration Levetiracetam 500 mg 10/31/20 10:00 11/03/20 09:36 Levetiracetam 500 Mg/5 Ml Oral Liqd PO 500 mg BID PEPITO Administration Metoclopramide HCl 10 mg 10/10/20 21:51 Metoclopramide 10 Mg/2 Ml Inj IV Q6H PRN Nausea And Vomiting Metoprolol Tartrate 100 mg 10/21/20 14:00 11/03/20 14:46 Metoprolol Tartrate 50 Mg Tab PO 100 mg TID PEPITO Administration Multi-Ingred Cream/Lotion/Oil/Oint 1 applic 10/10/20 10:34 Mineral Oil/Petrolatum, White Ophth Oint 3.5 Gm OU Q4HR PRN Dry Eye(s) Ondansetron HCl 4 mg 10/10/20 21:51 11/01/20 20:48 Ondansetron 4 Mg/2 Ml Inj IV 4 mg Q3H PRN Administration Nausea And Vomiting Polyethylene Glycol 17 gm 10/17/20 10:00 11/03/20 09:37 Polyethylene Glycol 3350 17 Gm Powder PO 17 gm QDAY PEPITO Administration Quetiapine Fumarate 100 mg 11/02/20 10:00 11/03/20 09:37 Quetiapine 100 Mg Tab PO 100 mg DAILY PEPITO Administration Quetiapine Fumarate 150 mg 11/01/20 22:00 11/02/20 21:42 Quetiapine 100 Mg Tab PO 150 mg QHS PEPITO Administration Scopolamine 1 each 10/17/20 10:00 11/01/20 09:42 Scopolamine Transdermal Patch 72 Hr TD 1 each Q3D PEPITO Administration Simple Syrup 15 ml 10/10/20 22:18 Simple Syrup 15 Ml FEEDTUBE PRN PRN Hypoglycemia Simple Syrup 30 ml 10/10/20 22:18 Simple Syrup 15 Ml FEEDTUBE PRN PRN Hypoglycemia Sodium Bicarbonate 325 mg 10/10/20 22:18 Sodium Bicarbonate 325 Mg Tab FEEDTUBE PRN PRN For Clogged Feeding Tube Sodium Chloride 10 ml 10/10/20 22:00 11/03/20 09:50 Sodium Chloride 0.9% 10 Ml Flush Syringe IV 10 ml BID PEPITO Administration Sodium Chloride 10 ml 10/10/20 21:51 10/21/20 09:56 Sodium Chloride 0.9% 10 Ml Flush Syringe IV 10 ml PRN PRN Administration LINE FLUSH Nutrition/Malnutrition Assess - Dietary Evaluation Nutrition/Malnutrition Findings: Nutrition Notes Start: 10/11/20 08:38 Freq: Status: Active Protocol: Document 11/02/20 13:05 CW (Rec: 11/02/20 13:12 CW [id number]) Nutrition Notes Initial or Follow up Reassessment Current Diagnosis Acute Kidney Injury,Sepsis, Hypertension,Heart Failure, Respiratory Failure Other Pertinent Diagnosis GIB, pneu, MRSA IN, pulmonary edema Current Diet Promote at 80 ml/hr Labs/Tests BUN 28 Pertinent Medications Zofran Lasix Height 6 ft Weight 131.9 kg Heath Body Weight (kg) 80.90 BMI 39.4 Weight change and time frame weight change d/t fluid overload Weight Status Morbidly Obese Subjective/Other Information F/U for TF tolerance. TF was held the night before d/t emesis but has been restarted and has been tolerated. Pt has been place back on mechanical vent. Pt now has DTI to heel. Percent of energy/protein needs met: 100%/74% Burn Absent Trauma Absent Difficulty In Swallowing Skin Integrity/Comment DTI to heel Current % PO Negligible Minimum of two criteria No Fluid Accumulation Mild (non-severe) #1 Nutrition Diagnosis Inadequate oral intake Diagnosis Progress(for reassessment Continues documentation) Is patient on ventilator? Yes Is Patient Ambulatory and/or Out of Bed No REE-([facility]-confined to bed) 2645.904 Kcal/Kg value to use for calculation 15 Approximate Energy Requirements Using 1979 kcal/Kg Calculation Used for Recommendations Kcal/kg Additional Notes protein needs: >162g (>2 kgIBW ) fluid needs: 1 ml/kcal or per MD Nutrition Intervention Change Diet Order: Continue Nutrition Support: Promote at 80 ml/hr with a free water flush of 200 ml q4hr for hypernatremia. Once hypernatremia resolved, resume flush of 50 ml q4h. Kcal 1,920 Protein (gm) 120 Fluid (mL) 1,611 Goal #1 Tolerate TF Goal #2 Meet at least 70% of protein and 100% of kcal needs via TF Anticipated Discharge Needs: TF Follow-Up By: 11/04/20 Additional Comments F/U for TF tolerance, vent status <DAVID TORRES R - Last Filed: 11/03/20 23:57> Assessment and Plan Assessment and plan: I saw and evaluated the patient. I agree with the findings and the plan of care as documented in the Nurse Practitioner's~note, with the following corrections and additions. Follow BMP, discussed with Mother and in details by phone. they want to continue aggressive care and full code status. Updated patient's son at bedside Increase free water with TF. Poor prognosis - family informed and they understands Hospitalist Physical - Constitutional Vitals: Temp Pulse Resp BP Pulse Ox 100 F H 89 21 109/47 91 11/03/20 23:45 11/03/20 22:01 11/03/20 22:01 11/03/20 22:01 11/03/20 22:01 HEART Score - HEART Score Troponin: Troponin T 0.125 ng/mL (0.00-0.029) H* D 10/12/20 04:00 Results - Labs CBC & Chem 7: 11/03/20 04:45 11/03/20 04:45 Labs: Laboratory Last Values WBC 11.8 K/mm3 (4.5-11.0) H 11/03/20 04:45 RBC 3.07 M/mm3 (3.65-5.03) L 11/03/20 04:45 Hgb 9.0 gm/dl (11.8-15.2) L 11/03/20 04:45 Hct 27.2 % (35.5-45.6) L 11/03/20 04:45 MCV 89 fl (84-94) 11/03/20 04:45 MCH 29 pg (28-32) 11/03/20 04:45 MCHC 33 % (32-34) 11/03/20 04:45 RDW 14.9 % (13.2-15.2) 11/03/20 04:45 Plt Count 195 K/mm3 (140-440) 11/03/20 04:45 Lymph % (Auto) 11.4 % (13.4-35.0) L 11/03/20 04:45 [place] % (Auto) 9.5 % (0.0-7.3) H 11/03/20 04:45 Eos % (Auto) 2.7 % (0.0-4.3) 11/03/20 04:45 Baso % (Auto) 0.5 % (0.0-1.8) 11/03/20 04:45 Lymph # (Auto) 1.3 K/mm3 (1.2-5.4) 11/03/20 04:45 [place] # (Auto) 1.1 K/mm3 (0.0-0.8) H 11/03/20 04:45 Eos # (Auto) 0.3 K/mm3 (0.0-0.4) 11/03/20 04:45 Baso # (Auto) 0.1 K/mm3 (0.0-0.1) 11/03/20 04:45 Add Manual Diff Complete 10/10/20 18:18 Total Counted 100 10/10/20 18:18 Seg Neutrophils % 75.9 % (40.0-70.0) H 11/03/20 04:45 Seg Neuts % (Manual) 60.0 % (40.0-70.0) 10/10/20 18:18 Band Neutrophils % 27.0 % 10/10/20 18:18 Lymphocytes % (Manual) 4.0 % (13.4-35.0) L 10/10/20 18:18 Monocytes % (Manual) 9.0 % (0.0-7.3) H 10/10/20 18:18 Eosinophils % (Manual) 4.0 % (0.0-4.3) 10/10/20 10:48 Metamyelocytes % 1.0 % 10/10/20 10:48 Nucleated RBC % Not Reportable 10/10/20 18:18 Seg Neutrophils # 9.0 K/mm3 (1.8-7.7) H 11/03/20 04:45 Seg Neutrophils # Man 13.8 K/mm3 (1.8-7.7) H 10/10/20 18:18 Band Neutrophils # 6.2 K/mm3 10/10/20 18:18 Lymphocytes # (Manual) 0.9 K/mm3 (1.2-5.4) L 10/10/20 18:18 Abs React Lymphs (Man) 0.0 K/mm3 10/10/20 18:18 Monocytes # (Manual) 2.1 K/mm3 (0.0-0.8) H 10/10/20 18:18 Eosinophils # (Manual) 0.0 K/mm3 (0.0-0.4) 10/10/20 18:18 Basophils # (Manual) 0.0 K/mm3 (0.0-0.1) 10/10/20 18:18 Metamyelocytes # 0.0 K/mm3 10/10/20 18:18 Myelocytes # 0.0 K/mm3 10/10/20 18:18 Promyelocytes # 0.0 K/mm3 10/10/20 18:18 Blast Cells # 0.0 K/mm3 10/10/20 18:18 WBC Morphology Not Reportable 10/10/20 18:18 Hypersegmented Neuts Not Reportable 10/10/20 18:18 Hyposegmented Neuts Not Reportable 10/10/20 18:18 Hypogranular Neuts Not Reportable 10/10/20 18:18 Smudge Cells Not Reportable 10/10/20 18:18 Toxic Granulation Not Reportable 10/10/20 18:18 Toxic Vacuolation Not Reportable 10/10/20 18:18 Dohle Bodies Not Reportable 10/10/20 18:18 Pelger-Huet Anomaly Not Reportable 10/10/20 18:18 Dionicio Rods Not Reportable 10/10/20 18:18 Platelet Estimate Consistent w auto 10/10/20 18:18 Clumped Platelets Not Reportable 10/10/20 18:18 Plt Clumps, EDTA Not Reportable 10/10/20 18:18 Large Platelets Rare 10/10/20 18:18 Giant Platelets Rare 10/10/20 18:18 Platelet Satelliting Not Reportable 10/10/20 18:18 Plt Morphology Comment Not Reportable 10/10/20 18:18 RBC Morphology Not Reportable 10/10/20 18:18 Dimorphic RBCs Not Reportable 10/10/20 18:18 Polychromasia Not Reportable 10/10/20 18:18 Hypochromasia Not Reportable 10/10/20 18:18 Poikilocytosis Not Reportable 10/10/20 18:18 Anisocytosis Not Reportable 10/10/20 18:18 Microcytosis Not Reportable 10/10/20 18:18 Macrocytosis Not Reportable 10/10/20 18:18 Spherocytes Not Reportable 10/10/20 18:18 Pappenheimer Bodies Not Reportable 10/10/20 18:18 Sickle Cells Not Reportable 10/10/20 18:18 Target Cells Not Reportable 10/10/20 18:18 Tear Drop Cells Not Reportable 10/10/20 18:18 Ovalocytes Not Reportable 10/10/20 18:18 Helmet Cells Not Reportable 10/10/20 18:18 Medley-[place] Bodies Not Reportable 10/10/20 18:18 [place] Rings Not Reportable 10/10/20 18:18 Adelfo Cells Not Reportable 10/10/20 18:18 Bite Cells Not Reportable 10/10/20 18:18 Crenated Cell Not Reportable 10/10/20 18:18 Elliptocytes Not Reportable 10/10/20 18:18 Acanthocytes (Spur) Not Reportable 10/10/20 18:18 Rouleaux Not Reportable 10/10/20 18:18 Hemoglobin C Crystals Not Reportable 10/10/20 18:18 Schistocytes Not Reportable 10/10/20 18:18 Malaria parasites Not Reportable 10/10/20 18:18 Mauricio Bodies Not Reportable 10/10/20 18:18 Hem Pathologist Commnt No 10/10/20 18:18 PT 13.5 Sec. (12.2-14.9) 10/28/20 07:00 INR 1.05 (0.87-1.13) 10/28/20 07:00 APTT 26.9 Sec. (24.2-36.6) 10/10/20 18:18 D-Dimer 679.5 ng/mlDDU (0-234) H 10/10/20 10:48 Heparin Anti-Xa Level 0.22 U.I./ml (0.3-0.7) L 10/11/20 08:35 ABG pH 7.452 (7.320-7.450) H 11/03/20 05:05 POC ABG pCO2 55.4 mmHg (32.0-48.0) H 11/03/20 05:05 ABG pCO2 55.5 mm Hg 10/16/20 05:10 POC ABG pO2 129.1 mmHg (83-108) H 11/03/20 05:05 ABG pO2 104.5 mm Hg (80.0-90.0) H 10/16/20 05:10 POC ABG HCO3 37.8 11/03/20 05:05 ABG HCO3 35.1 mmol/L (20.0-26.0) H 10/16/20 05:10 ABG O2 Saturation 99.0 (0-100) 11/03/20 05:05 ABG O2 Content 10.8 (0.0-44) 10/16/20 05:10 POC ABG Base Excess 12.3 11/03/20 05:05 ABG Base Excess 9.5 mmol/L (-2.0-3.0) H 10/16/20 05:10 ABG Hemoglobin 9.3 (12.0-17.5) L 11/03/20 05:05 ABG Oxyhemoglobin 97.0 (94-98) 11/03/20 05:05 ABG Carboxyhemoglobin 1.9 % (0.0-5.0) 10/16/20 05:10 ABG Methemoglobin 0.3 (0.0-1.5) 11/03/20 05:05 ABG Sodium 138.7 mmol/L (136.0-145.0) 11/03/20 05:05 ABG Potassium 4.0 mmol/L (3.40-4.50) 11/03/20 05:05 ABG Chloride 101.0 mmol/L (98-107) 11/03/20 05:05 ABG Glucose 99 mg/dL (65-95) H 11/03/20 05:05 VBG pH 6.870 (7.320-7.420) L* 10/10/20 10:48 Oxyhemoglobin 95.3 % (95.0-99.0) 10/16/20 05:10 Carboxyhemoglobin 1.7 (0.5-1.5) H 11/03/20 05:05 FiO2 35 % 10/16/20 05:10 FiO2 % 40.0 11/03/20 05:05 Sodium 146 mmol/L (137-145) H 11/03/20 04:45 Potassium 4.4 mmol/L (3.6-5.0) 11/03/20 04:45 Chloride 100.8 mmol/L (98-107) 11/03/20 04:45 Carbon Dioxide 39 mmol/L (22-30) H 11/03/20 04:45 Anion Gap 11 mmol/L 11/03/20 04:45 BUN 26 mg/dL (9-20) H 11/03/20 04:45 Creatinine 1.1 mg/dL (0.8-1.3) 11/03/20 04:45 Estimated GFR > 60 ml/min 11/03/20 04:45 BUN/Creatinine Ratio 24 % 11/03/20 04:45 Glucose 86 mg/dL (75-100) 11/03/20 04:45 POC Glucose 125 mg/dL (70-105) H 11/03/20 17:43 Hemoglobin A1c 6.0 % (4-6) 10/11/20 02:00 Lactic Acid 1.10 mmol/L (0.7-2.0) 10/13/20 04:52 Calcium 8.6 mg/dL (8.4-10.2) 11/03/20 04:45 Phosphorus 5.20 mg/dL (2.5-4.5) H D 10/17/20 03:32 Magnesium 2.30 mg/dL (1.7-2.3) 10/17/20 03:32 Ferritin 81.4 ng/mL (30.0-300.0) 10/10/20 10:48 Total Bilirubin 1.70 mg/dL (0.1-1.2) H 10/18/20 03:27 AST 37 units/L (5-40) 10/18/20 03:27 ALT 32 units/L (7-56) 10/18/20 03:27 Alkaline Phosphatase 97 units/L (35-129) 10/18/20 03:27 Ammonia 214.0 umol/L (25-60) H 10/10/20 10:46 Lactate Dehydrogenase 386 units/L (91-180) H 10/10/20 10:48 Total Creatine Kinase 1192 units/L (55-170) H 10/10/20 18:18 CK-MB (CK-2) 21.7 ng/mL (0.0-4.0) H 10/10/20 18:18 CK-MB (CK-2) Rel Index 1.8 (0-4) 10/10/20 18:18 Troponin T 0.125 ng/mL (0.00-0.029) H* D 10/12/20 04:00 C-Reactive Protein 0.90 mg/dL (0.00-1.30) 10/10/20 10:48 NT-Pro-B Natriuret Pep 1187 pg/mL (0-900) H 10/10/20 10:46 Total Protein 6.3 g/dL (6.3-8.2) 10/18/20 03:27 Albumin 3.1 g/dL (3.9-5) L 10/18/20 03:27 Albumin/Globulin Ratio 1.0 % 10/18/20 03:27 Triglycerides 278 mg/dL (2-149) H 10/13/20 04:52 Cholesterol 138 mg/dL (50-199) 10/10/20 18:18 LDL Cholesterol Direct 76 mg/dL (50-130) 10/10/20 18:18 HDL Cholesterol 49 mg/dL (40-59) 10/10/20 18:18 Cholesterol/HDL Ratio 2.81 % 10/10/20 18:18 Procalcitonin 4.98 ng/mL (<0.15) 10/15/20 04:12 TSH 6.260 mlU/mL (0.270-4.200) H 10/10/20 10:46 Arterial Blood Glucose 99 mg/dL (65-95) H 11/03/20 05:05 Arterial Blood Ionized Calcium 4.6 mg/dL (4.6-5.3) 11/03/20 05:05 Urine Color Angelica (Yellow) 10/18/20 Unknown Urine Turbidity Cloudy (Clear) 10/18/20 Unknown Urine pH 5.0 (5.0-7.0) 10/18/20 Unknown Ur Specific [place] 1.017 (1.003-1.030) 10/18/20 Unknown Urine Protein 100 mg/dl mg/dL (Negative) 10/18/20 Unknown Urine Glucose (UA) Neg mg/dL (Negative) 10/18/20 Unknown Urine Ketones Neg mg/dL (Negative) 10/18/20 Unknown Urine Blood Lg (Negative) 10/18/20 Unknown Urine Nitrite Neg (Negative) 10/18/20 Unknown Urine Bilirubin Neg (Negative) 10/18/20 Unknown Urine Urobilinogen 4.0 mg/dL (<2.0) 10/18/20 Unknown Ur Leukocyte Esterase Neg (Negative) 10/18/20 Unknown Urine WBC (Auto) 115.0 /HPF (0.0-6.0) H 10/18/20 Unknown Urine RBC (Auto) 98.0 /HPF (0.0-6.0) 10/18/20 Unknown U Epithel Cells (Auto) 2.0 /HPF (0-13.0) 10/18/20 Unknown Urine WBC Clumps 3+ /HPF 10/18/20 Unknown Urine Mucus Few /HPF 10/11/20 13:30 Urine Eosinophils None seen (None Seen) 10/11/20 13:30 Urine Creatinine 93.7 mg/dL (0.1-20.0) H 10/19/20 13:14 Urine Sodium 25 mmol/L 10/19/20 13:14 Urine Urea Nitrogen 845 10/19/20 13:14 Nasal Screen MRSA (PCR) Positive (Negative) 10/20/20 13:30 Random Vancomycin 5.8 ug/mL (0-40.0) 10/21/20 06:30 Urine Opiates Screen Negative 10/10/20 10:50 Urine Methadone Screen Negative 10/10/20 10:50 Ur Barbiturates Screen Negative 10/10/20 10:50 Ur Phencyclidine Scrn Negative 10/10/20 10:50 Ur Amphetamines Screen Negative 10/10/20 10:50 U Benzodiazepines Scrn Negative 10/10/20 10:50 Urine Cocaine Screen Negative 10/10/20 10:50 U Marijuana (THC) Screen Positive 10/10/20 10:50 Drugs of Abuse Note Disclamer 10/10/20 10:50 Plasma/Serum Alcohol < 0.01 % (0-0.07) 10/10/20 10:48 Coronavirus (PCR) Negative (Negative) 10/11/20 Unknown Blood Type AB POSITIVE 10/10/20 10:48 Antibody Screen Negative 10/10/20 10:48 [place]uttle/IV: Voiding Method Incontinent Active Medications - Current Medications Current Medications: Generic Name Dose Route Start Last Admin Trade Name Freq PRN Reason Stop Dose Admin Acetaminophen 650 mg 10/10/20 21:51 10/20/20 09:11 Acetaminophen 325 Mg Tab PO 650 mg Q4H PRN Administration Pain MILD(1-3)/Fever >100.5/SALVADOR Acetaminophen 650 mg 10/11/20 11:24 10/17/20 17:16 Acetaminophen 650 Mg Rect Supp [place] 650 mg Q6H PRN Administration Fever >101 Albuterol 2.5 mg 10/11/20 13:12 Albuterol 2.5 Mg/3 Ml Nebu IH Q6HRT PRN Shortness Of Breath Amlodipine Besylate 10 mg 10/25/20 13:00 11/03/20 09:36 Amlodipine 10 Mg Tab PO 10 mg QDAY PEPITO Administration Lipase/Protease/Amylase 1 each 10/10/20 22:18 Lipase 10,500/Protease 25,000/Amylase 43,750 (Units) Dr Santana FEEDTUBE PRN PRN For Clogged Feeding Tube Clonidine HCl 0.3 mg 10/14/20 15:00 10/28/20 14:58 Clonidine Tts 0.3 Mg/24 Hr Patch TD 0.3 mg Fr PEPITO Administration Docusate Sodium 100 mg 10/16/20 22:00 11/03/20 21:39 Docusate Sodium 100 Mg/10 Ml Oral Liqd PO 100 mg BID PEPITO Administration Furosemide 20 mg 11/02/20 14:00 11/02/20 14:06 Furosemide 20 Mg/2 Ml Inj IV 20 mg ONCE PEPITO Administration Furosemide 20 mg 11/03/20 13:00 11/03/20 12:46 Furosemide 20 Mg/2 Ml Inj IV 11/04/20 13:01 20 mg Q24H PEPITO Administration Glycopyrrolate 2 mg 11/03/20 14:00 11/03/20 21:40 Glycopyrrolate 2 Mg Tab PO 2 mg Q8H PEPITO Administration Heparin Sodium (Porcine) 5,000 unit 10/11/20 22:00 11/03/20 21:39 Heparin 5,000 Unit/1 Ml Vial SUB-Q 5,000 unit Q12HR PEPITO Administration Hydralazine HCl 100 mg 10/24/20 09:30 11/03/20 21:39 Hydralazine 25 Mg Tab PO 100 mg Q8HR PEPITO Administration Hydralazine HCl 10 mg 11/02/20 08:46 Hydralazine 20 Mg/1 Ml Inj IV Q6H PRN Hypertension Hydromorphone HCl 0.5 mg 11/01/20 20:55 11/02/20 21:00 Hydromorphone 1 Mg/1 Ml Inj IV 0.5 mg Q3H PRN Administration Pain , Severe (7-10) Hydrophilic Ointment 1 applic 10/10/20 10:34 Lip Therapy Vaseline TP Q2HR PRN Dry Lips Lansoprazole 30 mg 10/24/20 10:00 11/03/20 21:39 Lansoprazole 30 Mg Solutab FEEDTUBE 30 mg BID PEPITO Administration Levetiracetam 500 mg 10/31/20 10:00 11/03/20 21:41 Levetiracetam 500 Mg/5 Ml Oral Liqd PO 500 mg BID PEPITO Administration Metoclopramide HCl 10 mg 10/10/20 21:51 Metoclopramide 10 Mg/2 Ml Inj IV Q6H PRN Nausea And Vomiting Metoprolol Tartrate 100 mg 10/21/20 14:00 11/03/20 21:38 Metoprolol Tartrate 50 Mg Tab PO 100 mg TID PEPITO Administration Multi-Ingred Cream/Lotion/Oil/Oint 1 applic 10/10/20 10:34 Mineral Oil/Petrolatum, White Ophth Oint 3.5 Gm OU Q4HR PRN Dry Eye(s) Ondansetron HCl 4 mg 10/10/20 21:51 11/01/20 20:48 Ondansetron 4 Mg/2 Ml Inj IV 4 mg Q3H PRN Administration Nausea And Vomiting Polyethylene Glycol 17 gm 10/17/20 10:00 11/03/20 09:37 Polyethylene Glycol 3350 17 Gm Powder PO 17 gm QDAY PEPITO Administration Quetiapine Fumarate 100 mg 11/02/20 10:00 11/03/20 09:37 Quetiapine 100 Mg Tab PO 100 mg DAILY PEPITO Administration Quetiapine Fumarate 150 mg 11/01/20 22:00 11/03/20 21:38 Quetiapine 100 Mg Tab PO 150 mg QHS PEPITO Administration Scopolamine 1 each 10/17/20 10:00 11/01/20 09:42 Scopolamine Transdermal Patch 72 Hr TD 1 each Q3D PEPITO Administration Simple Syrup 15 ml 10/10/20 22:18 Simple Syrup 15 Ml FEEDTUBE PRN PRN Hypoglycemia Simple Syrup 30 ml 10/10/20 22:18 Simple Syrup 15 Ml FEEDTUBE PRN PRN Hypoglycemia Sodium Bicarbonate 325 mg 10/10/20 22:18 Sodium Bicarbonate 325 Mg Tab FEEDTUBE PRN PRN For Clogged Feeding Tube Sodium Chloride 10 ml 10/10/20 22:00 11/03/20 21:38 Sodium Chloride 0.9% 10 Ml Flush Syringe IV 10 ml BID PEPITO Administration Sodium Chloride 10 ml 10/10/20 21:51 10/21/20 09:56 Sodium Chloride 0.9% 10 Ml Flush Syringe IV 10 ml PRN PRN Administration LINE FLUSH Nutrition/Malnutrition Assess - Dietary Evaluation Nutrition/Malnutrition Findings: Nutrition Notes Start: 10/11/20 08:38 Freq: Status: Active Protocol: Document 11/02/20 13:05 CW (Rec: 11/02/20 13:12 CW [id number]) Nutrition Notes Initial or Follow up Reassessment Current Diagnosis Acute Kidney Injury,Sepsis, Hypertension,Heart Failure, Respiratory Failure Other Pertinent Diagnosis GIB, pneu, MRSA IN, pulmonary edema Current Diet Promote at 80 ml/hr Labs/Tests BUN 28 Pertinent Medications Isrrael Billy Height 6 ft Weight 131.9 kg Heath Body Weight (kg) 80.90 BMI 39.4 Weight change and time frame weight change d/t fluid overload Weight Status Morbidly Obese Subjective/Other Information F/U for TF tolerance. TF was held the night before d/t emesis but has been restarted and has been tolerated. Pt has been place back on mechanical vent. Pt now has DTI to heel. Percent of energy/protein needs met: 100%/74% Burn Absent Trauma Absent Difficulty In Swallowing Skin Integrity/Comment DTI to heel Current % PO Negligible Minimum of two criteria No Fluid Accumulation Mild (non-severe) #1 Nutrition Diagnosis Inadequate oral intake Diagnosis Progress(for reassessment Continues documentation) Is patient on ventilator? Yes Is Patient Ambulatory and/or Out of Bed No REE-([place]-confined to bed) 2645.904 Kcal/Kg value to use for calculation 15 Approximate Energy Requirements Using 1979 kcal/Kg Calculation Used for Recommendations Kcal/kg Additional Notes protein needs: >162g (>2 kgIBW ) fluid needs: 1 ml/kcal or per MD Nutrition Intervention Change Diet Order: Continue Nutrition Support: Promote at 80 ml/hr with a free water flush of 200 ml q4hr for hypernatremia. Once hypernatremia resolved, resume flush of 50 ml q4h. Kcal 1,920 Protein (gm) 120 Fluid (mL) 1,611 Goal #1 Tolerate TF Goal #2 Meet at least 70% of protein and 100% of kcal needs via TF Anticipated Discharge Needs: TF Follow-Up By: 11/04/20 Additional Comments F/U for TF tolerance, vent status
[2020-11-04 06:30] LABS: BUN/Creatinine Ratio 22; Blood Urea Nitrogen 26 mg/dL (9-20); Calcium 8.6 mg/dL (8.4-10.2); Hemolysis Index 0
[2020-11-04] MEDS: GLYCOPYRROLATE 2 MG TAB PO SCH (06:48)
[2020-11-04] MEDS: hydrALAZINE 25 MG TAB PO SCH ×3 (06:48→21:37)
[2020-11-04] MEDS: levETIRAcetam 500 MG/5 ML ORAL LIQD PO SCH ×2 (09:25→21:38)
[2020-11-04] MEDS: DOCUSATE SODIUM 100 MG/10 ML ORAL LIQD PO SCH ×2 (09:25→21:37)
[2020-11-04] MEDS: QUEtiapine 100 MG TAB PO SCH ×2 (09:26→21:38)
[2020-11-04] MEDS: METOPROLOL TARTRATE 50 MG TAB PO SCH ×3 (09:26→19:55)
[2020-11-04] MEDS: POLYETHYLENE GLYCOL 3350 17 GM POWDER PO SCH (09:26)
[2020-11-04] MEDS: amLODIPine 10 MG TAB PO SCH (09:26)
[2020-11-04] MEDS: LANSOPRAZOLE 30 MG SOLUTAB FEEDTUBE SCH ×2 (09:26→21:38)
[2020-11-04] MEDS: SCOPOLAMINE TRANSDERMAL PATCH 72 HR TD SCH (09:36)
[2020-11-04] MEDS: HEPARIN 5,000 UNIT/1 ML VIAL SUB-Q SCH ×2 (10:43→21:38)
--- NOTE | 2020-11-04 10:54 | XRay Report ---
CHEST 1 VIEW INDICATION / CLINICAL INFORMATION: hypoxia. COMPARISON: Chest radiograph one day prior FINDINGS: SUPPORT DEVICES: Stable position of tracheostomy and left-sided PICC. HEART / MEDIASTINUM: Stable. LUNGS / PLEURA: There has been slight interval improvement of patchy bilateral airspace opacities, mo st prominent in the right upper lobe. No large pleural effusion. No pneumothorax. ADDITIONAL FINDINGS: No significant additional findings. IMPRESSION: 1. Slight improvement of airspace opacities. Signer Name: Sade Corrigan MD Signed: 11/04/2020 10:50 AM Workstation Name: [id number]
--- NOTE | 2020-11-04 12:44 | Progress Note ---
Assessment and Plan Cardiac arrest x3 with ROSC Severe septic and cardiogenic shock Acute respiratory failure with hypoxemia and hypercarbia Acute pulmonary edema MOE (acute kidney injury) Lactic acidosis, severe metabolic acidosis Bilateral pneumonia, aspiration pneumonia Elevated troponins - reduce Robinul further to 1mg q8h and begin mucomyst nebs X 5 days re: thick secretions - continue gentle diuresis - begin t-piece trials - get ABG at 9pm on t-piece to assess ventilation - keep peep at 8 - continue care as below otherwise; - continue Seroquel for agitation control - daily SAT's and SBT assessment as tolerated - continue contact precautions re: MRSA - complete anti-infective's per ID rec's - follow clinically re: fevers / WBC - Monitor hemodynamics closely - wean supplemental oxygen for target O2 sat's > 92% acutely - VAP bundle addressed - continue lung protective strategies - bronchodilators with pulmonary hygiene per RT - wean per pulmonary driven protocols otherwise - Monitor urine output closely - bicarbonate infusion - avoid nephrotoxins, renally dose all medications - continue to avoid benzodiazepine's, reduce the possibility of delirium - continue Scopolamine for secretion control - continue wound care per RN/WCN - prn analgesia per CPOT score - Maintenance of sleep-wake cycle, avoid delirium - continue enteral nutritional support at goal rate as tolerated - G.I. & VTE prophylaxis - PT/OT/ROM exercises - continue mobility protocols for pressure ulcer prophylaxis - Monitor hemodynamics closely - continue other care per attending / other consultants - discharge planning ongoing concurrently .... Re-evaluate in am & prn CONDITION: CRITICAL PROGNOSIS: GUARDED CODE STATUS: FULL CODE The high probability of a clinically significant, sudden or life-threatening deterioration of the [respiratory, cardiovascular & neurologic] system(s) required my full and direct attention, intervention and personal management. The aggregate critical care time was [36] minutes without overlap. Time includes spent on; [x] Data Review and interpretation [x] Patient assessment and monitoring of vital signs [x] Documentation [x] Medication orders and management Subjective Date of service: 11/04/20 Principal diagnosis: Cardiac arrest; Septic Shock; Ac. hypoxemic & hypercapnic resp failure; MOE Interval history: Patient is seen today for: Cardiac arrest with ROSC; Severe septic and cardiogenic shock; Acute respiratory failure with hypoxemia and hypercarbia; Ac [place] pulmonary edema; MOE; Lactic acidosis; severe metabolic acidosis; Bilateral pneumonia; aspiration pneumonia; Elevated troponins Seen and examined at bedside; 24hour events reviewed; nursing and respiratory care staff consulted; no adverse overnight events reported to me; resting peacefully in bed; on PSV trial via PSV with p-supp at 10; no emesis; secretions thick and tenacious; decent diuresis overnight Objective Vital Signs - 12hr 11/04/20 11/04/20 11/04/20 01:01 01:30 02:00 Temperature Pulse Rate 83 87 90 Pulse Rate [ From Monitor] Respiratory Rate Blood Pressure 166/74 157/76 140/63 O2 Sat by Pulse 90 91 93 Oximetry O2 Sat by Pulse Oximetry [ Assessment] 11/04/20 11/04/20 11/04/20 02:31 03:00 03:16 Temperature 99.2 F Pulse Rate 83 85 Pulse Rate [ From Monitor] Respiratory Rate Blood Pressure 134/59 144/69 O2 Sat by Pulse 92 91 Oximetry O2 Sat by Pulse Oximetry [ Assessment] 11/04/20 11/04/20 11/04/20 03:30 04:00 04:30 Temperature Pulse Rate 90 88 82 Pulse Rate [ 80 From Monitor] Respiratory 21 Rate Blood Pressure 145/66 140/74 137/63 O2 Sat by Pulse 93 93 89 Oximetry O2 Sat by Pulse 97 Oximetry [ Assessment] 11/04/20 11/04/20 11/04/20 05:00 05:31 06:00 Temperature Pulse Rate 80 91 H 93 H Pulse Rate [ From Monitor] Respiratory 24 20 Rate Blood Pressure 135/72 163/80 177/101 O2 Sat by Pulse 89 93 Oximetry O2 Sat by Pulse Oximetry [ Assessment] 11/04/20 11/04/20 11/04/20 06:30 06:48 07:00 Temperature Pulse Rate 83 84 93 H Pulse Rate [ From Monitor] Respiratory 19 24 Rate Blood Pressure 162/88 162/88 162/88 O2 Sat by Pulse 98 Oximetry O2 Sat by Pulse Oximetry [ Assessment] 11/04/20 11/04/20 11/04/20 07:30 07:33 08:00 Temperature 99.6 F Pulse Rate 94 H 127 H Pulse Rate [ 106 H From Monitor] Respiratory 21 31 H Rate Blood Pressure 159/85 159/85 O2 Sat by Pulse 95 94 Oximetry O2 Sat by Pulse Oximetry [ Assessment] 11/04/20 11/04/20 11/04/20 08:30 09:00 09:26 Temperature Pulse Rate 113 H 93 H 94 H Pulse Rate [ From Monitor] Respiratory 22 Rate Blood Pressure 158/78 113/61 O2 Sat by Pulse 98 95 Oximetry O2 Sat by Pulse Oximetry [ Assessment] 11/04/20 11/04/20 11/04/20 09:30 09:41 09:58 Temperature Pulse Rate 89 85 Pulse Rate [ From Monitor] Respiratory 20 Rate Blood Pressure 148/77 148/77 148/77 O2 Sat by Pulse 95 99 Oximetry O2 Sat by Pulse Oximetry [ Assessment] 11/04/20 11/04/20 11/04/20 10:00 10:01 10:30 Temperature Pulse Rate 87 83 84 Pulse Rate [ From Monitor] Respiratory 23 Rate Blood Pressure 126/59 126/59 111/57 O2 Sat by Pulse 95 98 94 Oximetry O2 Sat by Pulse Oximetry [ Assessment] 11/04/20 11/04/20 11/04/20 11:00 11:30 12:00 Temperature Pulse Rate 74 77 73 Pulse Rate [ 106 H From Monitor] Respiratory 29 H 20 18 Rate Blood Pressure 112/59 116/63 127/64 O2 Sat by Pulse 97 98 96 Oximetry O2 Sat by Pulse Oximetry [ Assessment] 11/04/20 11/04/20 12:14 12:35 Temperature 142 F H Pulse Rate 74 Pulse Rate [ From Monitor] Respiratory 20 Rate Blood Pressure 127/64 O2 Sat by Pulse 99 Oximetry O2 Sat by Pulse Oximetry [ Assessment] Constitutional: appears uncomfortable, other (middle aged obese male with mildly increased respiratory efort at rest) Eyes: non-icteric ENT: oropharynx moist, oropharyngeal exudate pre (thick), other (midline tracheostomy) Neck: supple, no lymphadenopathy, no JVD Effort: mildly labored Ascultation: Bilateral: diminished breath sounds, rhonchi (scant) Percussion: Bilateral: not dull Cardiovascular: regular rate and rhythm, other (S1,S2) Gastrointestinal: normoactive bowel sounds, soft, non-tender, non-distended (protuberant) Integumentary: normal Extremities: no cyanosis, no edema, pulses normal, no ischemia or petechiae Neurologic: pupils equal and round, unable to assess Psychiatric: other (unable to assess re: AMS) CBC and BMP: 11/03/20 04:45 11/04/20 04:00 ABG, PT/INR, D-dimer: ABG ABG pH 7.452 (7.320-7.450) H 11/03/20 05:05 POC ABG pCO2 55.4 mmHg (32.0-48.0) H 11/03/20 05:05 ABG pCO2 55.5 mm Hg 10/16/20 05:10 POC ABG pO2 129.1 mmHg (83-108) H 11/03/20 05:05 ABG pO2 104.5 mm Hg (80.0-90.0) H 10/16/20 05:10 POC ABG HCO3 37.8 11/03/20 05:05 ABG O2 Saturation 99.0 (0-100) 11/03/20 05:05 PT/INR, D-dimer PT 13.5 Sec. (12.2-14.9) 10/28/20 07:00 INR 1.05 (0.87-1.13) 10/28/20 07:00 D-Dimer 679.5 ng/mlDDU (0-234) H 10/10/20 10:48 Abnormal lab findings: Abnormal Labs 10/10/20 10/10/20 10/10/20 10:46 10:46 10:46 WBC RBC Hgb Hct RDW Lymph % (Auto) [place] % (Auto) Lymph # (Auto) [place] # (Auto) Seg Neutrophils % Lymphocytes % (Manual) Monocytes % (Manual) Seg Neutrophils # Seg Neutrophils # Man Lymphocytes # (Manual) Monocytes # (Manual) D-Dimer Heparin Anti-Xa Level ABG pH POC ABG pCO2 POC ABG pO2 ABG pO2 ABG HCO3 ABG O2 Saturation ABG Base Excess ABG Hemoglobin ABG Oxyhemoglobin ABG Sodium ABG Potassium ABG Chloride ABG Glucose VBG pH Oxyhemoglobin Carboxyhemoglobin Sodium Potassium Chloride Carbon Dioxide BUN Creatinine Glucose POC Glucose Lactic Acid 13.60 H* Calcium Phosphorus Magnesium Total Bilirubin AST ALT Ammonia 214.0 H Lactate Dehydrogenase Total Creatine Kinase CK-MB (CK-2) Troponin T NT-Pro-B Natriuret Pep Total Protein Albumin Triglycerides TSH 6.260 H Arterial Blood Glucose Arterial Blood Ionized Calcium Urine pH Urine WBC (Auto) Urine Creatinine 10/10/20 10/10/20 10/10/20 10:46 10:48 10:48 WBC RBC 5.28 H Hgb 15.5 H Hct 48.8 H RDW Lymph % (Auto) [place] % (Auto) Lymph # (Auto) [place] # (Auto) Seg Neutrophils % Lymphocytes % (Manual) 42.0 H Monocytes % (Manual) Seg Neutrophils # Seg Neutrophils # Man Lymphocytes # (Manual) Monocytes # (Manual) D-Dimer Heparin Anti-Xa Level ABG pH POC ABG pCO2 POC ABG pO2 ABG pO2 ABG HCO3 ABG O2 Saturation ABG Base Excess ABG Hemoglobin ABG Oxyhemoglobin ABG Sodium ABG Potassium ABG Chloride ABG Glucose VBG pH Oxyhemoglobin Carboxyhemoglobin Sodium Potassium 3.3 L Chloride 91.2 L Carbon Dioxide BUN Creatinine 1.8 H Glucose 231 H POC Glucose Lactic Acid Calcium Phosphorus Magnesium Total Bilirubin AST 60 H ALT 57 H Ammonia Lactate Dehydrogenase Total Creatine Kinase CK-MB (CK-2) Troponin T NT-Pro-B Natriuret Pep 1187 H Total Protein 9.0 H Albumin Triglycerides TSH Arterial Blood Glucose Arterial Blood Ionized Calcium Urine pH Urine WBC (Auto) Urine Creatinine 10/10/20 10/10/20 10/10/20 10:48 10:48 10:48 WBC RBC Hgb Hct RDW Lymph % (Auto) [place] % (Auto) Lymph # (Auto) [place] # (Auto) Seg Neutrophils % Lymphocytes % (Manual) Monocytes % (Manual) Seg Neutrophils # Seg Neutrophils # Man Lymphocytes # (Manual) Monocytes # (Manual) D-Dimer 679.5 H Heparin Anti-Xa Level ABG pH POC ABG pCO2 POC ABG pO2 ABG pO2 ABG HCO3 ABG O2 Saturation ABG Base Excess ABG Hemoglobin ABG Oxyhemoglobin ABG Sodium ABG Potassium ABG Chloride ABG Glucose VBG pH 6.870 L* Oxyhemoglobin Carboxyhemoglobin Sodium Potassium Chloride Carbon Dioxide BUN Creatinine Glucose POC Glucose Lactic Acid Calcium Phosphorus Magnesium Total Bilirubin AST ALT Ammonia Lactate Dehydrogenase 386 H Total Creatine Kinase CK-MB (CK-2) Troponin T NT-Pro-B Natriuret Pep Total Protein Albumin Triglycerides TSH Arterial Blood Glucose Arterial Blood Ionized Calcium Urine pH Urine WBC (Auto) Urine Creatinine 10/10/20 10/10/20 10/10/20 14:10 14:20 15:50 WBC RBC Hgb Hct RDW Lymph % (Auto) [place] % (Auto) Lymph # (Auto) [place] # (Auto) Seg Neutrophils % Lymphocytes % (Manual) Monocytes % (Manual) Seg Neutrophils # Seg Neutrophils # Man Lymphocytes # (Manual) Monocytes # (Manual) D-Dimer Heparin Anti-Xa Level ABG pH 7.175 L 7.247 L POC ABG pCO2 85.0 H POC ABG pO2 43.7 L ABG pO2 60.3 L ABG HCO3 32.0 H ABG O2 Saturation 86.1 L ABG Base Excess ABG Hemoglobin ABG Oxyhemoglobin 67.7 L ABG Sodium ABG Potassium ABG Chloride ABG Glucose 247 H VBG pH Oxyhemoglobin 84.4 L Carboxyhemoglobin Sodium Potassium Chloride Carbon Dioxide BUN Creatinine Glucose POC Glucose Lactic Acid 4.00 H* Calcium Phosphorus Magnesium Total Bilirubin AST ALT Ammonia Lactate Dehydrogenase Total Creatine Kinase CK-MB (CK-2) Troponin T NT-Pro-B Natriuret Pep Total Protein Albumin Triglycerides TSH Arterial Blood Glucose 247 H Arterial Blood Ionized Calcium 4.4 L Urine pH Urine WBC (Auto) Urine Creatinine 10/10/20 10/10/20 10/10/20 15:50 16:22 18:18 WBC RBC Hgb Hct RDW Lymph % (Auto) [place] % (Auto) Lymph # (Auto) [place] # (Auto) Seg Neutrophils % Lymphocytes % (Manual) Monocytes % (Manual) Seg Neutrophils # Seg Neutrophils # Man Lymphocytes # (Manual) Monocytes # (Manual) D-Dimer Heparin Anti-Xa Level ABG pH 7.171 L POC ABG pCO2 96.6 H POC ABG pO2 55.3 L ABG pO2 ABG HCO3 ABG O2 Saturation ABG Base Excess ABG Hemoglobin ABG Oxyhemoglobin 81.4 L ABG Sodium ABG Potassium ABG Chloride ABG Glucose 115 H VBG pH Oxyhemoglobin Carboxyhemoglobin Sodium Potassium Chloride Carbon Dioxide BUN Creatinine Glucose POC Glucose 132 H Lactic Acid Calcium Phosphorus Magnesium Total Bilirubin AST ALT Ammonia Lactate Dehydrogenase Total Creatine Kinase 1192 H CK-MB (CK-2) 21.7 H Troponin T 0.377 H* D NT-Pro-B Natriuret Pep Total Protein Albumin Triglycerides TSH Arterial Blood Glucose 115 H Arterial Blood Ionized Calcium Urine pH Urine WBC (Auto) Urine Creatinine 10/10/20 10/10/20 10/10/20 18:18 18:18 22:49 WBC 23.0 H RBC 5.12 H Hgb Hct RDW Lymph % (Auto) [place] % (Auto) Lymph # (Auto) [place] # (Auto) Seg Neutrophils % Lymphocytes % (Manual) 4.0 L Monocytes % (Manual) 9.0 H Seg Neutrophils # Seg Neutrophils # Man 13.8 H Lymphocytes # (Manual) 0.9 L Monocytes # (Manual) 2.1 H D-Dimer Heparin Anti-Xa Level ABG pH POC ABG pCO2 POC ABG pO2 ABG pO2 ABG HCO3 ABG O2 Saturation ABG Base Excess ABG Hemoglobin ABG Oxyhemoglobin ABG Sodium ABG Potassium ABG Chloride ABG Glucose VBG pH Oxyhemoglobin Carboxyhemoglobin Sodium 146 H Potassium Chloride Carbon Dioxide 34 H D BUN 27 H Creatinine 2.7 H Glucose 102 H POC Glucose Lactic Acid Calcium Phosphorus Magnesium Total Bilirubin AST 90 H ALT 66 H Ammonia Lactate Dehydrogenase Total Creatine Kinase CK-MB (CK-2) Troponin T 0.273 H* D NT-Pro-B Natriuret Pep Total Protein Albumin Triglycerides TSH Arterial Blood Glucose Arterial Blood Ionized Calcium Urine pH Urine WBC (Auto) Urine Creatinine 10/11/20 10/11/20 10/11/20 02:00 02:00 02:00 WBC 17.3 H RBC Hgb Hct RDW Lymph % (Auto) 3.9 L [place] % (Auto) Lymph # (Auto) 0.7 L [place] # (Auto) Seg Neutrophils % 93.0 H Lymphocytes % (Manual) Monocytes % (Manual) Seg Neutrophils # 16.1 H Seg Neutrophils # Man Lymphocytes # (Manual) Monocytes # (Manual) D-Dimer Heparin Anti-Xa Level ABG pH POC ABG pCO2 POC ABG pO2 ABG pO2 ABG HCO3 ABG O2 Saturation ABG Base Excess ABG Hemoglobin ABG Oxyhemoglobin ABG Sodium ABG Potassium ABG Chloride ABG Glucose VBG pH Oxyhemoglobin Carboxyhemoglobin Sodium 149 H Potassium 3.3 L Chloride 95.3 L Carbon Dioxide 37 H BUN 29 H Creatinine 2.6 H Glucose POC Glucose Lactic Acid Calcium Phosphorus Magnesium Total Bilirubin AST 80 H ALT 59 H Ammonia Lactate Dehydrogenase Total Creatine Kinase CK-MB (CK-2) Troponin T 0.201 H* D NT-Pro-B Natriuret Pep Total Protein Albumin 3.6 L Triglycerides TSH Arterial Blood Glucose Arterial Blood Ionized Calcium Urine pH Urine WBC (Auto) Urine Creatinine 10/11/20 10/11/20 10/11/20 03:51 08:35 11:15 WBC RBC Hgb Hct RDW Lymph % (Auto) [place] % (Auto) Lymph # (Auto) [place] # (Auto) Seg Neutrophils % Lymphocytes % (Manual) Monocytes % (Manual) Seg Neutrophils # Seg Neutrophils # Man Lymphocytes # (Manual) Monocytes # (Manual) D-Dimer Heparin Anti-Xa Level 0.22 L ABG pH 7.491 H POC ABG pCO2 57.6 H POC ABG pO2 ABG pO2 ABG HCO3 ABG O2 Saturation ABG Base Excess ABG Hemoglobin ABG Oxyhemoglobin ABG Sodium 150.0 H ABG Potassium 3.1 L ABG Chloride 96.0 L ABG Glucose 122 H VBG pH Oxyhemoglobin Carboxyhemoglobin Sodium Potassium Chloride Carbon Dioxide BUN Creatinine Glucose POC Glucose 151 H Lactic Acid Calcium Phosphorus Magnesium Total Bilirubin AST ALT Ammonia Lactate Dehydrogenase Total Creatine Kinase CK-MB (CK-2) Troponin T NT-Pro-B Natriuret Pep Total Protein Albumin Triglycerides TSH Arterial Blood Glucose 122 H Arterial Blood Ionized Calcium 3.9 L Urine pH Urine WBC (Auto) Urine Creatinine 10/11/20 10/11/20 10/11/20 13:30 13:30 13:30 WBC 15.0 H RBC Hgb Hct RDW Lymph % (Auto) [place] % (Auto) Lymph # (Auto) [place] # (Auto) Seg Neutrophils % Lymphocytes % (Manual) Monocytes % (Manual) Seg Neutrophils # Seg Neutrophils # Man Lymphocytes # (Manual) Monocytes # (Manual) D-Dimer Heparin Anti-Xa Level ABG pH POC ABG pCO2 POC ABG pO2 ABG pO2 ABG HCO3 ABG O2 Saturation ABG Base Excess ABG Hemoglobin ABG Oxyhemoglobin ABG Sodium ABG Potassium ABG Chloride ABG Glucose VBG pH Oxyhemoglobin Carboxyhemoglobin Sodium Potassium Chloride Carbon Dioxide BUN Creatinine Glucose POC Glucose Lactic Acid Calcium Phosphorus Magnesium Total Bilirubin AST ALT Ammonia Lactate Dehydrogenase Total Creatine Kinase CK-MB (CK-2) Troponin T NT-Pro-B Natriuret Pep Total Protein Albumin Triglycerides TSH Arterial Blood Glucose Arterial Blood Ionized Calcium Urine pH 9.0 H Urine WBC (Auto) 18.0 H Urine Creatinine 80.5 H 10/11/20 10/11/20 10/12/20 17:17 23:14 03:53 WBC RBC Hgb Hct RDW Lymph % (Auto) [place] % (Auto) Lymph # (Auto) [place] # (Auto) Seg Neutrophils % Lymphocytes % (Manual) Monocytes % (Manual) Seg Neutrophils # Seg Neutrophils # Man Lymphocytes # (Manual) Monocytes # (Manual) D-Dimer Heparin Anti-Xa Level ABG pH 7.545 H POC ABG pCO2 54.6 H POC ABG pO2 231.9 H ABG pO2 ABG HCO3 ABG O2 Saturation ABG Base Excess ABG Hemoglobin ABG Oxyhemoglobin 98.5 H ABG Sodium 150.5 H ABG Potassium 3.2 L ABG Chloride 96.0 L ABG Glucose 148 H VBG pH Oxyhemoglobin Carboxyhemoglobin Sodium Potassium Chloride Carbon Dioxide BUN Creatinine Glucose POC Glucose 121 H 135 H Lactic Acid Calcium Phosphorus Magnesium Total Bilirubin AST ALT Ammonia Lactate Dehydrogenase Total Creatine Kinase CK-MB (CK-2) Troponin T NT-Pro-B Natriuret Pep Total Protein Albumin Triglycerides TSH Arterial Blood Glucose 148 H Arterial Blood Ionized Calcium 3.8 L Urine pH Urine WBC (Auto) Urine Creatinine 10/12/20 10/12/20 10/12/20 04:00 05:10 05:12 WBC 14.3 H RBC Hgb 11.6 L Hct 35.2 L RDW Lymph % (Auto) [place] % (Auto) Lymph # (Auto) [place] # (Auto) Seg Neutrophils % Lymphocytes % (Manual) Monocytes % (Manual) Seg Neutrophils # Seg Neutrophils # Man Lymphocytes # (Manual) Monocytes # (Manual) D-Dimer Heparin Anti-Xa Level ABG pH POC ABG pCO2 POC ABG pO2 ABG pO2 ABG HCO3 ABG O2 Saturation ABG Base Excess ABG Hemoglobin ABG Oxyhemoglobin ABG Sodium ABG Potassium ABG Chloride ABG Glucose VBG pH Oxyhemoglobin Carboxyhemoglobin Sodium 155 H Potassium 3.3 L Chloride 97.9 L Carbon Dioxide 47 H* D BUN 50 H Creatinine 3.4 H Glucose 146 H POC Glucose 137 H Lactic Acid Calcium 8.0 L Phosphorus Magnesium Total Bilirubin AST ALT Ammonia Lactate Dehydrogenase Total Creatine Kinase CK-MB (CK-2) Troponin T 0.125 H* D NT-Pro-B Natriuret Pep Total Protein Albumin Triglycerides TSH Arterial Blood Glucose Arterial Blood Ionized Calcium Urine pH Urine WBC (Auto) Urine Creatinine 10/12/20 10/12/20 10/12/20 11:39 16:01 19:49 WBC RBC Hgb Hct RDW Lymph % (Auto) [place] % (Auto) Lymph # (Auto) [place] # (Auto) Seg Neutrophils % Lymphocytes % (Manual) Monocytes % (Manual) Seg Neutrophils # Seg Neutrophils # Man Lymphocytes # (Manual) Monocytes # (Manual) D-Dimer Heparin Anti-Xa Level ABG pH POC ABG pCO2 POC ABG pO2 ABG pO2 ABG HCO3 ABG O2 Saturation ABG Base Excess ABG Hemoglobin ABG Oxyhemoglobin ABG Sodium ABG Potassium ABG Chloride ABG Glucose VBG pH Oxyhemoglobin Carboxyhemoglobin Sodium 157 H Potassium 3.3 L Chloride Carbon Dioxide 47 H* BUN 52 H Creatinine 3.0 H Glucose 137 H POC Glucose 138 H 119 H Lactic Acid Calcium 8.0 L Phosphorus Magnesium Total Bilirubin AST ALT Ammonia Lactate Dehydrogenase Total Creatine Kinase CK-MB (CK-2) Troponin T NT-Pro-B Natriuret Pep Total Protein Albumin Triglycerides TSH Arterial Blood Glucose Arterial Blood Ionized Calcium Urine pH Urine WBC (Auto) Urine Creatinine 10/12/20 10/13/20 10/13/20 23:37 02:28 04:52 WBC RBC Hgb Hct RDW Lymph % (Auto) [place] % (Auto) Lymph # (Auto) [place] # (Auto) Seg Neutrophils % Lymphocytes % (Manual) Monocytes % (Manual) Seg Neutrophils # Seg Neutrophils # Man Lymphocytes # (Manual) Monocytes # (Manual) D-Dimer Heparin Anti-Xa Level ABG pH 7.485 H POC ABG pCO2 57.1 H POC ABG pO2 ABG pO2 ABG HCO3 ABG O2 Saturation ABG Base Excess ABG Hemoglobin ABG Oxyhemoglobin ABG Sodium 152.4 H ABG Potassium ABG Chloride ABG Glucose 129 H VBG pH Oxyhemoglobin Carboxyhemoglobin Sodium 155 H Potassium Chloride Carbon Dioxide 45 H* BUN 52 H Creatinine 2.7 H Glucose 121 H POC Glucose 131 H Lactic Acid Calcium Phosphorus Magnesium 2.40 H Total Bilirubin AST ALT Ammonia Lactate Dehydrogenase Total Creatine Kinase CK-MB (CK-2) Troponin T NT-Pro-B Natriuret Pep Total Protein Albumin Triglycerides 278 H TSH Arterial Blood Glucose 129 H Arterial Blood Ionized Calcium 4.1 L Urine pH Urine WBC (Auto) Urine Creatinine 10/13/20 10/13/20 10/13/20 04:52 05:13 11:37 WBC 14.7 H RBC Hgb 11.7 L Hct RDW 15.8 H Lymph % (Auto) [place] % (Auto) Lymph # (Auto) [place] # (Auto) Seg Neutrophils % Lymphocytes % (Manual) Monocytes % (Manual) Seg Neutrophils # Seg Neutrophils # Man Lymphocytes # (Manual) Monocytes # (Manual) D-Dimer Heparin Anti-Xa Level ABG pH POC ABG pCO2 POC ABG pO2 ABG pO2 ABG HCO3 ABG O2 Saturation ABG Base Excess ABG Hemoglobin ABG Oxyhemoglobin ABG Sodium ABG Potassium ABG Chloride ABG Glucose VBG pH Oxyhemoglobin Carboxyhemoglobin Sodium Potassium Chloride Carbon Dioxide BUN Creatinine Glucose POC Glucose 116 H 116 H Lactic Acid Calcium Phosphorus Magnesium Total Bilirubin AST ALT Ammonia Lactate Dehydrogenase Total Creatine Kinase CK-MB (CK-2) Troponin T NT-Pro-B Natriuret Pep Total Protein Albumin Triglycerides TSH Arterial Blood Glucose Arterial Blood Ionized Calcium Urine pH Urine WBC (Auto) Urine Creatinine 10/13/20 10/14/20 10/14/20 17:50 03:45 04:46 WBC 11.1 H RBC Hgb Hct RDW 15.3 H Lymph % (Auto) [place] % (Auto) Lymph # (Auto) [place] # (Auto) Seg Neutrophils % Lymphocytes % (Manual) Monocytes % (Manual) Seg Neutrophils # Seg Neutrophils # Man Lymphocytes # (Manual) Monocytes # (Manual) D-Dimer Heparin Anti-Xa Level ABG pH POC ABG pCO2 59.6 H POC ABG pO2 ABG pO2 ABG HCO3 ABG O2 Saturation ABG Base Excess ABG Hemoglobin ABG Oxyhemoglobin ABG Sodium 151.4 H ABG Potassium 3.3 L ABG Chloride ABG Glucose 138 H VBG pH Oxyhemoglobin Carboxyhemoglobin 1.6 H Sodium Potassium Chloride Carbon Dioxide BUN Creatinine Glucose POC Glucose 140 H Lactic Acid Calcium Phosphorus Magnesium Total Bilirubin AST ALT Ammonia Lactate Dehydrogenase Total Creatine Kinase CK-MB (CK-2) Troponin T NT-Pro-B Natriuret Pep Total Protein Albumin Triglycerides TSH Arterial Blood Glucose 138 H Arterial Blood Ionized Calcium 4.5 L Urine pH Urine WBC (Auto) Urine Creatinine 10/14/20 10/14/20 10/14/20 04:46 05:10 11:11 WBC RBC Hgb Hct RDW Lymph % (Auto) [place] % (Auto) Lymph # (Auto) [place] # (Auto) Seg Neutrophils % Lymphocytes % (Manual) Monocytes % (Manual) Seg Neutrophils # Seg Neutrophils # Man Lymphocytes # (Manual) Monocytes # (Manual) D-Dimer Heparin Anti-Xa Level ABG pH POC ABG pCO2 POC ABG pO2 ABG pO2 ABG HCO3 ABG O2 Saturation ABG Base Excess ABG Hemoglobin ABG Oxyhemoglobin ABG Sodium ABG Potassium ABG Chloride ABG Glucose VBG pH Oxyhemoglobin Carboxyhemoglobin Sodium 152 H Potassium 3.5 L Chloride Carbon Dioxide 38 H D BUN 46 H Creatinine 2.3 H Glucose 127 H POC Glucose 116 H 114 H Lactic Acid Calcium Phosphorus Magnesium Total Bilirubin AST ALT Ammonia Lactate Dehydrogenase Total Creatine Kinase CK-MB (CK-2) Troponin T NT-Pro-B Natriuret Pep Total Protein Albumin Triglycerides TSH Arterial Blood Glucose Arterial Blood Ionized Calcium Urine pH Urine WBC (Auto) Urine Creatinine 10/14/20 10/14/20 10/15/20 18:53 23:23 04:12 WBC RBC Hgb Hct RDW Lymph % (Auto) [place] % (Auto) Lymph # (Auto) [place] # (Auto) Seg Neutrophils % Lymphocytes % (Manual) Monocytes % (Manual) Seg Neutrophils # Seg Neutrophils # Man Lymphocytes # (Manual) Monocytes # (Manual) D-Dimer Heparin Anti-Xa Level ABG pH POC ABG pCO2 POC ABG pO2 ABG pO2 ABG HCO3 ABG O2 Saturation ABG Base Excess ABG Hemoglobin ABG Oxyhemoglobin ABG Sodium ABG Potassium ABG Chloride ABG Glucose VBG pH Oxyhemoglobin Carboxyhemoglobin Sodium 149 H Potassium 3.2 L Chloride Carbon Dioxide 37 H BUN 40 H Creatinine 2.0 H Glucose 124 H POC Glucose 128 H 113 H Lactic Acid Calcium Phosphorus Magnesium Total Bilirubin AST ALT Ammonia Lactate Dehydrogenase Total Creatine Kinase CK-MB (CK-2) Troponin T NT-Pro-B Natriuret Pep Total Protein Albumin Triglycerides TSH Arterial Blood Glucose Arterial Blood Ionized Calcium Urine pH Urine WBC (Auto) Urine Creatinine 10/15/20 10/15/20 10/15/20 04:22 11:39 17:36 WBC RBC Hgb Hct RDW Lymph % (Auto) [place] % (Auto) Lymph # (Auto) [place] # (Auto) Seg Neutrophils % Lymphocytes % (Manual) Monocytes % (Manual) Seg Neutrophils # Seg Neutrophils # Man Lymphocytes # (Manual) Monocytes # (Manual) D-Dimer Heparin Anti-Xa Level ABG pH POC ABG pCO2 POC ABG pO2 ABG pO2 115.0 H ABG HCO3 38.1 H ABG O2 Saturation ABG Base Excess 11.3 H ABG Hemoglobin 11.0 L ABG Oxyhemoglobin ABG Sodium ABG Potassium ABG Chloride ABG Glucose VBG pH Oxyhemoglobin Carboxyhemoglobin Sodium Potassium Chloride Carbon Dioxide BUN Creatinine Glucose POC Glucose 123 H 118 H Lactic Acid Calcium Phosphorus Magnesium Total Bilirubin AST ALT Ammonia Lactate Dehydrogenase Total Creatine Kinase CK-MB (CK-2) Troponin T NT-Pro-B Natriuret Pep Total Protein Albumin Triglycerides TSH Arterial Blood Glucose Arterial Blood Ionized Calcium Urine pH Urine WBC (Auto) Urine Creatinine 10/15/20 10/16/20 10/16/20 23:18 03:13 05:10 WBC RBC Hgb Hct RDW Lymph % (Auto) [place] % (Auto) Lymph # (Auto) [place] # (Auto) Seg Neutrophils % Lymphocytes % (Manual) Monocytes % (Manual) Seg Neutrophils # Seg Neutrophils # Man Lymphocytes # (Manual) Monocytes # (Manual) D-Dimer Heparin Anti-Xa Level ABG pH POC ABG pCO2 POC ABG pO2 ABG pO2 104.5 H ABG HCO3 35.1 H ABG O2 Saturation ABG Base Excess 9.5 H ABG Hemoglobin 7.9 L ABG Oxyhemoglobin ABG Sodium ABG Potassium ABG Chloride ABG Glucose VBG pH Oxyhemoglobin Carboxyhemoglobin Sodium Potassium 3.3 L Chloride Carbon Dioxide 33 H BUN 37 H Creatinine 1.4 H Glucose 148 H POC Glucose 135 H Lactic Acid Calcium Phosphorus Magnesium 2.40 H Total Bilirubin AST ALT Ammonia Lactate Dehydrogenase Total Creatine Kinase CK-MB (CK-2) Troponin T NT-Pro-B Natriuret Pep Total Protein Albumin Triglycerides TSH Arterial Blood Glucose Arterial Blood Ionized Calcium Urine pH Urine WBC (Auto) Urine Creatinine 10/16/20 10/16/20 10/16/20 06:36 11:08 17:07 WBC RBC Hgb Hct RDW Lymph % (Auto) [place] % (Auto) Lymph # (Auto) [place] # (Auto) Seg Neutrophils % Lymphocytes % (Manual) Monocytes % (Manual) Seg Neutrophils # Seg Neutrophils # Man Lymphocytes # (Manual) Monocytes # (Manual) D-Dimer Heparin Anti-Xa Level ABG pH POC ABG pCO2 POC ABG pO2 ABG pO2 ABG HCO3 ABG O2 Saturation ABG Base Excess ABG Hemoglobin ABG Oxyhemoglobin ABG Sodium ABG Potassium ABG Chloride ABG Glucose VBG pH Oxyhemoglobin Carboxyhemoglobin Sodium Potassium Chloride Carbon Dioxide BUN Creatinine Glucose POC Glucose 150 H 111 H 132 H Lactic Acid Calcium Phosphorus Magnesium Total Bilirubin AST ALT Ammonia Lactate Dehydrogenase Total Creatine Kinase CK-MB (CK-2) Troponin T NT-Pro-B Natriuret Pep Total Protein Albumin Triglycerides TSH Arterial Blood Glucose Arterial Blood Ionized Calcium Urine pH Urine WBC (Auto) Urine Creatinine 10/16/20 10/17/20 10/17/20 23:38 03:32 03:32 WBC RBC Hgb Hct RDW Lymph % (Auto) [place] % (Auto) Lymph # (Auto) [place] # (Auto) Seg Neutrophils % Lymphocytes % (Manual) Monocytes % (Manual) Seg Neutrophils # Seg Neutrophils # Man Lymphocytes # (Manual) Monocytes # (Manual) D-Dimer Heparin Anti-Xa Level ABG pH POC ABG pCO2 POC ABG pO2 ABG pO2 ABG HCO3 ABG O2 Saturation ABG Base Excess ABG Hemoglobin ABG Oxyhemoglobin ABG Sodium ABG Potassium ABG Chloride ABG Glucose VBG pH Oxyhemoglobin Carboxyhemoglobin Sodium 146 H Potassium Chloride Carbon Dioxide 32 H BUN 57 H Creatinine 2.4 H D Glucose 124 H POC Glucose 117 H Lactic Acid Calcium Phosphorus 5.20 H D Magnesium Total Bilirubin AST ALT Ammonia Lactate Dehydrogenase Total Creatine Kinase CK-MB (CK-2) Troponin T NT-Pro-B Natriuret Pep Total Protein Albumin Triglycerides TSH Arterial Blood Glucose Arterial Blood Ionized Calcium Urine pH Urine WBC (Auto) Urine Creatinine 10/17/20 10/17/20 10/18/20 05:10 17:33 00:13 WBC RBC Hgb Hct RDW Lymph % (Auto) [place] % (Auto) Lymph # (Auto) [place] # (Auto) Seg Neutrophils % Lymphocytes % (Manual) Monocytes % (Manual) Seg Neutrophils # Seg Neutrophils # Man Lymphocytes # (Manual) Monocytes # (Manual) D-Dimer Heparin Anti-Xa Level ABG pH POC ABG pCO2 POC ABG pO2 ABG pO2 ABG HCO3 ABG O2 Saturation ABG Base Excess ABG Hemoglobin ABG Oxyhemoglobin ABG Sodium ABG Potassium ABG Chloride ABG Glucose VBG pH Oxyhemoglobin Carboxyhemoglobin Sodium Potassium Chloride Carbon Dioxide BUN Creatinine Glucose POC Glucose 122 H 121 H 23 L Lactic Acid Calcium Phosphorus Magnesium Total Bilirubin AST ALT Ammonia Lactate Dehydrogenase Total Creatine Kinase CK-MB (CK-2) Troponin T NT-Pro-B Natriuret Pep Total Protein Albumin Triglycerides TSH Arterial Blood Glucose Arterial Blood Ionized Calcium Urine pH Urine WBC (Auto) Urine Creatinine 10/18/20 10/18/20 10/18/20 00:16 03:27 03:27 WBC RBC Hgb 11.7 L Hct RDW Lymph % (Auto) [place] % (Auto) Lymph # (Auto) [place] # (Auto) Seg Neutrophils % Lymphocytes % (Manual) Monocytes % (Manual) Seg Neutrophils # Seg Neutrophils # Man Lymphocytes # (Manual) Monocytes # (Manual) D-Dimer Heparin Anti-Xa Level ABG pH POC ABG pCO2 POC ABG pO2 ABG pO2 ABG HCO3 ABG O2 Saturation ABG Base Excess ABG Hemoglobin ABG Oxyhemoglobin ABG Sodium ABG Potassium ABG Chloride ABG Glucose VBG pH Oxyhemoglobin Carboxyhemoglobin Sodium Potassium Chloride 97.6 L Carbon Dioxide BUN 90 H Creatinine 3.3 H Glucose 146 H POC Glucose 134 H Lactic Acid Calcium Phosphorus Magnesium Total Bilirubin 1.70 H AST ALT Ammonia Lactate Dehydrogenase Total Creatine Kinase CK-MB (CK-2) Troponin T NT-Pro-B Natriuret Pep Total Protein Albumin 3.1 L Triglycerides TSH Arterial Blood Glucose Arterial Blood Ionized Calcium Urine pH Urine WBC (Auto) Urine Creatinine 10/18/20 10/18/20 10/18/20 05:09 11:19 17:15 WBC RBC Hgb Hct RDW Lymph % (Auto) [place] % (Auto) Lymph # (Auto) [place] # (Auto) Seg Neutrophils % Lymphocytes % (Manual) Monocytes % (Manual) Seg Neutrophils # Seg Neutrophils # Man Lymphocytes # (Manual) Monocytes # (Manual) D-Dimer Heparin Anti-Xa Level ABG pH POC ABG pCO2 POC ABG pO2 ABG pO2 ABG HCO3 ABG O2 Saturation ABG Base Excess ABG Hemoglobin ABG Oxyhemoglobin ABG Sodium ABG Potassium ABG Chloride ABG Glucose VBG pH Oxyhemoglobin Carboxyhemoglobin Sodium Potassium Chloride Carbon Dioxide BUN Creatinine Glucose POC Glucose 144 H 145 H 151 H Lactic Acid Calcium Phosphorus Magnesium Total Bilirubin AST ALT Ammonia Lactate Dehydrogenase Total Creatine Kinase CK-MB (CK-2) Troponin T NT-Pro-B Natriuret Pep Total Protein Albumin Triglycerides TSH Arterial Blood Glucose Arterial Blood Ionized Calcium Urine pH Urine WBC (Auto) Urine Creatinine 10/18/20 10/18/20 10/19/20 23:16 Unknown 04:55 WBC RBC Hgb Hct RDW Lymph % (Auto) [place] % (Auto) Lymph # (Auto) [place] # (Auto) Seg Neutrophils % Lymphocytes % (Manual) Monocytes % (Manual) Seg Neutrophils # Seg Neutrophils # Man Lymphocytes # (Manual) Monocytes # (Manual) D-Dimer Heparin Anti-Xa Level ABG pH POC ABG pCO2 POC ABG pO2 ABG pO2 ABG HCO3 ABG O2 Saturation ABG Base Excess ABG Hemoglobin ABG Oxyhemoglobin ABG Sodium ABG Potassium ABG Chloride ABG Glucose VBG pH Oxyhemoglobin Carboxyhemoglobin Sodium Potassium Chloride Carbon Dioxide BUN 104 H Creatinine 3.1 H Glucose 139 H POC Glucose 123 H Lactic Acid Calcium Phosphorus Magnesium Total Bilirubin AST ALT Ammonia Lactate Dehydrogenase Total Creatine Kinase CK-MB (CK-2) Troponin T NT-Pro-B Natriuret Pep Total Protein Albumin Triglycerides TSH Arterial Blood Glucose Arterial Blood Ionized Calcium Urine pH Urine WBC (Auto) 115.0 H Urine Creatinine 10/19/20 10/19/20 10/19/20 04:55 11:35 13:14 WBC 15.1 H RBC Hgb 11.1 L Hct 34.4 L RDW Lymph % (Auto) 4.2 L [place] % (Auto) 11.9 H Lymph # (Auto) 0.6 L [place] # (Auto) 1.8 H Seg Neutrophils % 82.0 H Lymphocytes % (Manual) Monocytes % (Manual) Seg Neutrophils # 12.4 H Seg Neutrophils # Man Lymphocytes # (Manual) Monocytes # (Manual) D-Dimer Heparin Anti-Xa Level ABG pH POC ABG pCO2 POC ABG pO2 ABG pO2 ABG HCO3 ABG O2 Saturation ABG Base Excess ABG Hemoglobin ABG Oxyhemoglobin ABG Sodium ABG Potassium ABG Chloride ABG Glucose VBG pH Oxyhemoglobin Carboxyhemoglobin Sodium Potassium Chloride Carbon Dioxide BUN Creatinine Glucose POC Glucose 136 H Lactic Acid Calcium Phosphorus Magnesium Total Bilirubin AST ALT Ammonia Lactate Dehydrogenase Total Creatine Kinase CK-MB (CK-2) Troponin T NT-Pro-B Natriuret Pep Total Protein Albumin Triglycerides TSH Arterial Blood Glucose Arterial Blood Ionized Calcium Urine pH Urine WBC (Auto) Urine Creatinine 93.7 H 10/19/20 10/19/20 10/20/20 17:53 23:39 04:30 WBC RBC Hgb Hct RDW Lymph % (Auto) [place] % (Auto) Lymph # (Auto) [place] # (Auto) Seg Neutrophils % Lymphocytes % (Manual) Monocytes % (Manual) Seg Neutrophils # Seg Neutrophils # Man Lymphocytes # (Manual) Monocytes # (Manual) D-Dimer Heparin Anti-Xa Level ABG pH POC ABG pCO2 POC ABG pO2 ABG pO2 ABG HCO3 ABG O2 Saturation ABG Base Excess ABG Hemoglobin ABG Oxyhemoglobin ABG Sodium ABG Potassium ABG Chloride ABG Glucose VBG pH Oxyhemoglobin Carboxyhemoglobin Sodium Potassium Chloride Carbon Dioxide BUN 104 H Creatinine 2.8 H Glucose 151 H POC Glucose 137 H 133 H Lactic Acid Calcium Phosphorus Magnesium Total Bilirubin AST ALT Ammonia Lactate Dehydrogenase Total Creatine Kinase CK-MB (CK-2) Troponin T NT-Pro-B Natriuret Pep Total Protein Albumin Triglycerides TSH Arterial Blood Glucose Arterial Blood Ionized Calcium Urine pH Urine WBC (Auto) Urine Creatinine 10/20/20 10/20/20 10/20/20 04:30 05:38 11:34 WBC 17.9 H RBC Hgb 11.7 L Hct RDW Lymph % (Auto) [place] % (Auto) Lymph # (Auto) [place] # (Auto) Seg Neutrophils % Lymphocytes % (Manual) Monocytes % (Manual) Seg Neutrophils # Seg Neutrophils # Man Lymphocytes # (Manual) Monocytes # (Manual) D-Dimer Heparin Anti-Xa Level ABG pH POC ABG pCO2 POC ABG pO2 ABG pO2 ABG HCO3 ABG O2 Saturation ABG Base Excess ABG Hemoglobin ABG Oxyhemoglobin ABG Sodium ABG Potassium ABG Chloride ABG Glucose VBG pH Oxyhemoglobin Carboxyhemoglobin Sodium Potassium Chloride Carbon Dioxide BUN Creatinine Glucose POC Glucose 164 H 148 H Lactic Acid Calcium Phosphorus Magnesium Total Bilirubin AST ALT Ammonia Lactate Dehydrogenase Total Creatine Kinase CK-MB (CK-2) Troponin T NT-Pro-B Natriuret Pep Total Protein Albumin Triglycerides TSH Arterial Blood Glucose Arterial Blood Ionized Calcium Urine pH Urine WBC (Auto) Urine Creatinine 10/20/20 10/20/20 10/20/20 17:40 20:20 23:29 WBC RBC Hgb Hct RDW Lymph % (Auto) [place] % (Auto) Lymph # (Auto) [place] # (Auto) Seg Neutrophils % Lymphocytes % (Manual) Monocytes % (Manual) Seg Neutrophils # Seg Neutrophils # Man Lymphocytes # (Manual) Monocytes # (Manual) D-Dimer Heparin Anti-Xa Level ABG pH 7.292 L POC ABG pCO2 68.5 H POC ABG pO2 ABG pO2 ABG HCO3 ABG O2 Saturation ABG Base Excess ABG Hemoglobin 11.6 L ABG Oxyhemoglobin ABG Sodium ABG Potassium ABG Chloride ABG Glucose 145 H VBG pH Oxyhemoglobin Carboxyhemoglobin Sodium Potassium Chloride Carbon Dioxide BUN Creatinine Glucose POC Glucose 130 H 136 H Lactic Acid Calcium Phosphorus Magnesium Total Bilirubin AST ALT Ammonia Lactate Dehydrogenase Total Creatine Kinase CK-MB (CK-2) Troponin T NT-Pro-B Natriuret Pep Total Protein Albumin Triglycerides TSH Arterial Blood Glucose 145 H Arterial Blood Ionized Calcium Urine pH Urine WBC (Auto) Urine Creatinine 10/21/20 10/21/20 10/21/20 04:20 06:26 06:30 WBC RBC Hgb Hct RDW Lymph % (Auto) [place] % (Auto) Lymph # (Auto) [place] # (Auto) Seg Neutrophils % Lymphocytes % (Manual) Monocytes % (Manual) Seg Neutrophils # Seg Neutrophils # Man Lymphocytes # (Manual) Monocytes # (Manual) D-Dimer Heparin Anti-Xa Level ABG pH 7.262 L POC ABG pCO2 72.4 H POC ABG pO2 81.6 L ABG pO2 ABG HCO3 ABG O2 Saturation ABG Base Excess ABG Hemoglobin 11.6 L ABG Oxyhemoglobin ABG Sodium ABG Potassium ABG Chloride ABG Glucose 140 H VBG pH Oxyhemoglobin Carboxyhemoglobin Sodium Potassium Chloride Carbon Dioxide 33 H BUN 104 H Creatinine 2.9 H Glucose 153 H POC Glucose 128 H Lactic Acid Calcium Phosphorus Magnesium Total Bilirubin AST ALT Ammonia Lactate Dehydrogenase Total Creatine Kinase CK-MB (CK-2) Troponin T NT-Pro-B Natriuret Pep Total Protein Albumin Triglycerides TSH Arterial Blood Glucose 140 H Arterial Blood Ionized Calcium Urine pH Urine WBC (Auto) Urine Creatinine 10/21/20 10/21/20 10/21/20 06:30 11:24 17:21 WBC 13.3 H RBC Hgb 10.7 L Hct 32.7 L RDW Lymph % (Auto) [place] % (Auto) Lymph # (Auto) [place] # (Auto) Seg Neutrophils % Lymphocytes % (Manual) Monocytes % (Manual) Seg Neutrophils # Seg Neutrophils # Man Lymphocytes # (Manual) Monocytes # (Manual) D-Dimer Heparin Anti-Xa Level ABG pH POC ABG pCO2 POC ABG pO2 ABG pO2 ABG HCO3 ABG O2 Saturation ABG Base Excess ABG Hemoglobin ABG Oxyhemoglobin ABG Sodium ABG Potassium ABG Chloride ABG Glucose VBG pH Oxyhemoglobin Carboxyhemoglobin Sodium Potassium Chloride Carbon Dioxide BUN Creatinine Glucose POC Glucose 178 H 138 H Lactic Acid Calcium Phosphorus Magnesium Total Bilirubin AST ALT Ammonia Lactate Dehydrogenase Total Creatine Kinase CK-MB (CK-2) Troponin T NT-Pro-B Natriuret Pep Total Protein Albumin Triglycerides TSH Arterial Blood Glucose Arterial Blood Ionized Calcium Urine pH Urine WBC (Auto) Urine Creatinine 10/22/20 10/22/20 10/22/20 00:05 04:30 06:15 WBC RBC Hgb Hct RDW Lymph % (Auto) [place] % (Auto) Lymph # (Auto) [place] # (Auto) Seg Neutrophils % Lymphocytes % (Manual) Monocytes % (Manual) Seg Neutrophils # Seg Neutrophils # Man Lymphocytes # (Manual) Monocytes # (Manual) D-Dimer Heparin Anti-Xa Level ABG pH 7.225 L POC ABG pCO2 76.6 H POC ABG pO2 ABG pO2 ABG HCO3 ABG O2 Saturation ABG Base Excess ABG Hemoglobin 11.1 L ABG Oxyhemoglobin ABG Sodium ABG Potassium ABG Chloride ABG Glucose 151 H VBG pH Oxyhemoglobin Carboxyhemoglobin Sodium Potassium Chloride Carbon Dioxide 32 H BUN 103 H Creatinine 2.7 H Glucose 151 H POC Glucose 135 H Lactic Acid Calcium Phosphorus Magnesium Total Bilirubin AST ALT Ammonia Lactate Dehydrogenase Total Creatine Kinase CK-MB (CK-2) Troponin T NT-Pro-B Natriuret Pep Total Protein Albumin Triglycerides TSH Arterial Blood Glucose 151 H Arterial Blood Ionized Calcium Urine pH Urine WBC (Auto) Urine Creatinine 10/22/20 10/22/20 10/22/20 06:18 11:34 11:44 WBC RBC Hgb Hct RDW Lymph % (Auto) [place] % (Auto) Lymph # (Auto) [place] # (Auto) Seg Neutrophils % Lymphocytes % (Manual) Monocytes % (Manual) Seg Neutrophils # Seg Neutrophils # Man Lymphocytes # (Manual) Monocytes # (Manual) D-Dimer Heparin Anti-Xa Level ABG pH 7.278 L POC ABG pCO2 67.8 H POC ABG pO2 ABG pO2 ABG HCO3 ABG O2 Saturation ABG Base Excess ABG Hemoglobin 10.2 L ABG Oxyhemoglobin ABG Sodium ABG Potassium ABG Chloride ABG Glucose 172 H VBG pH Oxyhemoglobin Carboxyhemoglobin Sodium Potassium Chloride Carbon Dioxide BUN Creatinine Glucose POC Glucose 137 H 147 H Lactic Acid Calcium Phosphorus Magnesium Total Bilirubin AST ALT Ammonia Lactate Dehydrogenase Total Creatine Kinase CK-MB (CK-2) Troponin T NT-Pro-B Natriuret Pep Total Protein Albumin Triglycerides TSH Arterial Blood Glucose 172 H Arterial Blood Ionized Calcium Urine pH Urine WBC (Auto) Urine Creatinine 10/22/20 10/22/2021 17:40 23:55 05:11 WBC RBC Hgb Hct RDW Lymph % (Auto) [place] % (Auto) Lymph # (Auto) [place] # (Auto) Seg Neutrophils % Lymphocytes % (Manual) Monocytes % (Manual) Seg Neutrophils # Seg Neutrophils # Man Lymphocytes # (Manual) Monocytes # (Manual) D-Dimer Heparin Anti-Xa Level ABG pH POC ABG pCO2 63.6 H POC ABG pO2 81.2 L ABG pO2 ABG HCO3 ABG O2 Saturation ABG Base Excess ABG Hemoglobin 10.6 L ABG Oxyhemoglobin ABG Sodium ABG Potassium ABG Chloride 109.0 H ABG Glucose 149 H VBG pH Oxyhemoglobin Carboxyhemoglobin Sodium Potassium Chloride Carbon Dioxide BUN Creatinine Glucose POC Glucose 141 H 139 H Lactic Acid Calcium Phosphorus Magnesium Total Bilirubin AST ALT Ammonia Lactate Dehydrogenase Total Creatine Kinase CK-MB (CK-2) Troponin T NT-Pro-B Natriuret Pep Total Protein Albumin Triglycerides TSH Arterial Blood Glucose 149 H Arterial Blood Ionized Calcium Urine pH Urine WBC (Auto) Urine Creatinine 10/23/20 10/23/20 10/23/20 05:39 06:00 11:32 WBC RBC Hgb Hct RDW Lymph % (Auto) [place] % (Auto) Lymph # (Auto) [place] # (Auto) Seg Neutrophils % Lymphocytes % (Manual) Monocytes % (Manual) Seg Neutrophils # Seg Neutrophils # Man Lymphocytes # (Manual) Monocytes # (Manual) D-Dimer Heparin Anti-Xa Level ABG pH POC ABG pCO2 POC ABG pO2 ABG pO2 ABG HCO3 ABG O2 Saturation ABG Base Excess ABG Hemoglobin ABG Oxyhemoglobin ABG Sodium ABG Potassium ABG Chloride ABG Glucose VBG pH Oxyhemoglobin Carboxyhemoglobin Sodium 146 H Potassium Chloride Carbon Dioxide 35 H BUN 92 H Creatinine 2.0 H Glucose 144 H POC Glucose 139 H 176 H Lactic Acid Calcium Phosphorus Magnesium Total Bilirubin AST ALT Ammonia Lactate Dehydrogenase Total Creatine Kinase CK-MB (CK-2) Troponin T NT-Pro-B Natriuret Pep Total Protein Albumin Triglycerides TSH Arterial Blood Glucose Arterial Blood Ionized Calcium Urine pH Urine WBC (Auto) Urine Creatinine 10/23/20 10/23/20 10/24/20 11:34 17:55 05:33 WBC RBC Hgb Hct RDW Lymph % (Auto) [place] % (Auto) Lymph # (Auto) [place] # (Auto) Seg Neutrophils % Lymphocytes % (Manual) Monocytes % (Manual) Seg Neutrophils # Seg Neutrophils # Man Lymphocytes # (Manual) Monocytes # (Manual) D-Dimer Heparin Anti-Xa Level ABG pH POC ABG pCO2 POC ABG pO2 ABG pO2 ABG HCO3 ABG O2 Saturation ABG Base Excess ABG Hemoglobin ABG Oxyhemoglobin ABG Sodium ABG Potassium ABG Chloride ABG Glucose VBG pH Oxyhemoglobin Carboxyhemoglobin Sodium 147 H Potassium Chloride Carbon Dioxide 32 H BUN 76 H Creatinine 1.7 H Glucose 172 H POC Glucose 173 H 135 H Lactic Acid Calcium Phosphorus Magnesium Total Bilirubin AST ALT Ammonia Lactate Dehydrogenase Total Creatine Kinase CK-MB (CK-2) Troponin T NT-Pro-B Natriuret Pep Total Protein Albumin Triglycerides TSH Arterial Blood Glucose Arterial Blood Ionized Calcium Urine pH Urine WBC (Auto) Urine Creatinine 10/24/20 10/24/20 10/24/20 05:41 12:09 18:09 WBC RBC Hgb Hct RDW Lymph % (Auto) [place] % (Auto) Lymph # (Auto) [place] # (Auto) Seg Neutrophils % Lymphocytes % (Manual) Monocytes % (Manual) Seg Neutrophils # Seg Neutrophils # Man Lymphocytes # (Manual) Monocytes # (Manual) D-Dimer Heparin Anti-Xa Level ABG pH POC ABG pCO2 POC ABG pO2 ABG pO2 ABG HCO3 ABG O2 Saturation ABG Base Excess ABG Hemoglobin ABG Oxyhemoglobin ABG Sodium ABG Potassium ABG Chloride ABG Glucose VBG pH Oxyhemoglobin Carboxyhemoglobin Sodium Potassium Chloride Carbon Dioxide BUN Creatinine Glucose POC Glucose 156 H 154 H 132 H Lactic Acid Calcium Phosphorus Magnesium Total Bilirubin AST ALT Ammonia Lactate Dehydrogenase Total Creatine Kinase CK-MB (CK-2) Troponin T NT-Pro-B Natriuret Pep Total Protein Albumin Triglycerides TSH Arterial Blood Glucose Arterial Blood Ionized Calcium Urine pH Urine WBC (Auto) Urine Creatinine 10/24/20 10/25/20 10/25/20 23:39 05:29 08:55 WBC RBC Hgb Hct RDW Lymph % (Auto) [place] % (Auto) Lymph # (Auto) [place] # (Auto) Seg Neutrophils % Lymphocytes % (Manual) Monocytes % (Manual) Seg Neutrophils # Seg Neutrophils # Man Lymphocytes # (Manual) Monocytes # (Manual) D-Dimer Heparin Anti-Xa Level ABG pH POC ABG pCO2 POC ABG pO2 ABG pO2 ABG HCO3 ABG O2 Saturation ABG Base Excess ABG Hemoglobin ABG Oxyhemoglobin ABG Sodium ABG Potassium ABG Chloride ABG Glucose VBG pH Oxyhemoglobin Carboxyhemoglobin Sodium 150 H Potassium Chloride 108.3 H Carbon Dioxide 32 H BUN 57 H Creatinine 1.5 H Glucose 142 H POC Glucose 131 H 142 H Lactic Acid Calcium Phosphorus Magnesium Total Bilirubin AST ALT Ammonia Lactate Dehydrogenase Total Creatine Kinase CK-MB (CK-2) Troponin T NT-Pro-B Natriuret Pep Total Protein Albumin Triglycerides TSH Arterial Blood Glucose Arterial Blood Ionized Calcium Urine pH Urine WBC (Auto) Urine Creatinine 10/25/20 10/25/20 10/25/20 08:55 11:08 18:10 WBC 14.3 H RBC 3.57 L Hgb 10.3 L Hct 31.6 L RDW Lymph % (Auto) [place] % (Auto) Lymph # (Auto) [place] # (Auto) Seg Neutrophils % Lymphocytes % (Manual) Monocytes % (Manual) Seg Neutrophils # Seg Neutrophils # Man Lymphocytes # (Manual) Monocytes # (Manual) D-Dimer Heparin Anti-Xa Level ABG pH POC ABG pCO2 52.3 H POC ABG pO2 ABG pO2 ABG HCO3 ABG O2 Saturation ABG Base Excess ABG Hemoglobin 11.2 L ABG Oxyhemoglobin ABG Sodium ABG Potassium ABG Chloride 108.0 H ABG Glucose 167 H VBG pH Oxyhemoglobin Carboxyhemoglobin Sodium Potassium Chloride Carbon Dioxide BUN Creatinine Glucose POC Glucose 157 H Lactic Acid Calcium Phosphorus Magnesium Total Bilirubin AST ALT Ammonia Lactate Dehydrogenase Total Creatine Kinase CK-MB (CK-2) Troponin T NT-Pro-B Natriuret Pep Total Protein Albumin Triglycerides TSH Arterial Blood Glucose 167 H Arterial Blood Ionized Calcium Urine pH Urine WBC (Auto) Urine Creatinine 10/25/20 10/26/20 10/26/20 18:20 00:20 06:08 WBC RBC Hgb Hct RDW Lymph % (Auto) [place] % (Auto) Lymph # (Auto) [place] # (Auto) Seg Neutrophils % Lymphocytes % (Manual) Monocytes % (Manual) Seg Neutrophils # Seg Neutrophils # Man Lymphocytes # (Manual) Monocytes # (Manual) D-Dimer Heparin Anti-Xa Level ABG pH POC ABG pCO2 POC ABG pO2 ABG pO2 ABG HCO3 ABG O2 Saturation ABG Base Excess ABG Hemoglobin ABG Oxyhemoglobin ABG Sodium ABG Potassium ABG Chloride ABG Glucose VBG pH Oxyhemoglobin Carboxyhemoglobin Sodium Potassium Chloride Carbon Dioxide BUN Creatinine Glucose POC Glucose 127 H 108 H 119 H Lactic Acid Calcium Phosphorus Magnesium Total Bilirubin AST ALT Ammonia Lactate Dehydrogenase Total Creatine Kinase CK-MB (CK-2) Troponin T NT-Pro-B Natriuret Pep Total Protein Albumin Triglycerides TSH Arterial Blood Glucose Arterial Blood Ionized Calcium Urine pH Urine WBC (Auto) Urine Creatinine 10/26/20 10/26/20 10/26/20 07:38 07:38 11:28 WBC 13.5 H RBC 3.37 L Hgb 9.8 L Hct 30.0 L RDW Lymph % (Auto) [place] % (Auto) Lymph # (Auto) [place] # (Auto) Seg Neutrophils % Lymphocytes % (Manual) Monocytes % (Manual) Seg Neutrophils # Seg Neutrophils # Man Lymphocytes # (Manual) Monocytes # (Manual) D-Dimer Heparin Anti-Xa Level ABG pH POC ABG pCO2 POC ABG pO2 ABG pO2 ABG HCO3 ABG O2 Saturation ABG Base Excess ABG Hemoglobin ABG Oxyhemoglobin ABG Sodium ABG Potassium ABG Chloride ABG Glucose VBG pH Oxyhemoglobin Carboxyhemoglobin Sodium 149 H Potassium Chloride 107.6 H Carbon Dioxide 34 H BUN 49 H Creatinine 1.4 H Glucose 137 H POC Glucose 148 H Lactic Acid Calcium Phosphorus Magnesium Total Bilirubin AST ALT Ammonia Lactate Dehydrogenase Total Creatine Kinase CK-MB (CK-2) Troponin T NT-Pro-B Natriuret Pep Total Protein Albumin Triglycerides TSH Arterial Blood Glucose Arterial Blood Ionized Calcium Urine pH Urine WBC (Auto) Urine Creatinine 10/26/20 10/26/20 10/27/20 18:17 23:37 05:08 WBC RBC Hgb Hct RDW Lymph % (Auto) [place] % (Auto) Lymph # (Auto) [place] # (Auto) Seg Neutrophils % Lymphocytes % (Manual) Monocytes % (Manual) Seg Neutrophils # Seg Neutrophils # Man Lymphocytes # (Manual) Monocytes # (Manual) D-Dimer Heparin Anti-Xa Level ABG pH POC ABG pCO2 POC ABG pO2 ABG pO2 ABG HCO3 ABG O2 Saturation ABG Base Excess ABG Hemoglobin ABG Oxyhemoglobin ABG Sodium ABG Potassium ABG Chloride ABG Glucose VBG pH Oxyhemoglobin Carboxyhemoglobin Sodium Potassium Chloride Carbon Dioxide BUN Creatinine Glucose POC Glucose 121 H 152 H 120 H Lactic Acid Calcium Phosphorus Magnesium Total Bilirubin AST ALT Ammonia Lactate Dehydrogenase Total Creatine Kinase CK-MB (CK-2) Troponin T NT-Pro-B Natriuret Pep Total Protein Albumin Triglycerides TSH Arterial Blood Glucose Arterial Blood Ionized Calcium Urine pH Urine WBC (Auto) Urine Creatinine 10/27/20 10/27/20 10/27/20 07:30 07:30 11:59 WBC RBC 3.46 L Hgb 10.2 L Hct 30.9 L RDW Lymph % (Auto) [place] % (Auto) Lymph # (Auto) [place] # (Auto) Seg Neutrophils % Lymphocytes % (Manual) Monocytes % (Manual) Seg Neutrophils # Seg Neutrophils # Man Lymphocytes # (Manual) Monocytes # (Manual) D-Dimer Heparin Anti-Xa Level ABG pH POC ABG pCO2 POC ABG pO2 ABG pO2 ABG HCO3 ABG O2 Saturation ABG Base Excess ABG Hemoglobin ABG Oxyhemoglobin ABG Sodium ABG Potassium ABG Chloride ABG Glucose VBG pH Oxyhemoglobin Carboxyhemoglobin Sodium 146 H Potassium Chloride Carbon Dioxide 34 H BUN 45 H Creatinine Glucose 131 H POC Glucose 143 H Lactic Acid Calcium Phosphorus Magnesium Total Bilirubin AST ALT Ammonia Lactate Dehydrogenase Total Creatine Kinase CK-MB (CK-2) Troponin T NT-Pro-B Natriuret Pep Total Protein Albumin Triglycerides TSH Arterial Blood Glucose Arterial Blood Ionized Calcium Urine pH Urine WBC (Auto) Urine Creatinine 10/27/20 10/27/20 10/28/20 18:52 23:03 07:00 WBC RBC Hgb Hct RDW Lymph % (Auto) [place] % (Auto) Lymph # (Auto) [place] # (Auto) Seg Neutrophils % Lymphocytes % (Manual) Monocytes % (Manual) Seg Neutrophils # Seg Neutrophils # Man Lymphocytes # (Manual) Monocytes # (Manual) D-Dimer Heparin Anti-Xa Level ABG pH POC ABG pCO2 POC ABG pO2 ABG pO2 ABG HCO3 ABG O2 Saturation ABG Base Excess ABG Hemoglobin ABG Oxyhemoglobin ABG Sodium ABG Potassium ABG Chloride ABG Glucose VBG pH Oxyhemoglobin Carboxyhemoglobin Sodium 147 H Potassium Chloride Carbon Dioxide 35 H BUN 39 H Creatinine Glucose 133 H POC Glucose 119 H 158 H Lactic Acid Calcium Phosphorus Magnesium Total Bilirubin AST ALT Ammonia Lactate Dehydrogenase Total Creatine Kinase CK-MB (CK-2) Troponin T NT-Pro-B Natriuret Pep Total Protein Albumin Triglycerides TSH Arterial Blood Glucose Arterial Blood Ionized Calcium Urine pH Urine WBC (Auto) Urine Creatinine 10/28/20 10/28/20 10/28/20 09:00 11:47 17:15 WBC 12.5 H RBC 3.58 L Hgb 10.5 L Hct 32.1 L RDW Lymph % (Auto) [place] % (Auto) Lymph # (Auto) [place] # (Auto) Seg Neutrophils % Lymphocytes % (Manual) Monocytes % (Manual) Seg Neutrophils # Seg Neutrophils # Man Lymphocytes # (Manual) Monocytes # (Manual) D-Dimer Heparin Anti-Xa Level ABG pH POC ABG pCO2 POC ABG pO2 ABG pO2 ABG HCO3 ABG O2 Saturation ABG Base Excess ABG Hemoglobin ABG Oxyhemoglobin ABG Sodium ABG Potassium ABG Chloride ABG Glucose VBG pH Oxyhemoglobin Carboxyhemoglobin Sodium Potassium Chloride Carbon Dioxide BUN Creatinine Glucose POC Glucose 129 H 109 H Lactic Acid Calcium Phosphorus Magnesium Total Bilirubin AST ALT Ammonia Lactate Dehydrogenase Total Creatine Kinase CK-MB (CK-2) Troponin T NT-Pro-B Natriuret Pep Total Protein Albumin Triglycerides TSH Arterial Blood Glucose Arterial Blood Ionized Calcium Urine pH Urine WBC (Auto) Urine Creatinine 10/28/20 10/29/20 10/29/20 23:31 04:23 04:23 WBC 13.6 H RBC 3.47 L Hgb 10.5 L Hct 30.7 L RDW 15.4 H Lymph % (Auto) [place] % (Auto) Lymph # (Auto) [place] # (Auto) Seg Neutrophils % Lymphocytes % (Manual) Monocytes % (Manual) Seg Neutrophils # Seg Neutrophils # Man Lymphocytes # (Manual) Monocytes # (Manual) D-Dimer Heparin Anti-Xa Level ABG pH POC ABG pCO2 POC ABG pO2 ABG pO2 ABG HCO3 ABG O2 Saturation ABG Base Excess ABG Hemoglobin ABG Oxyhemoglobin ABG Sodium ABG Potassium ABG Chloride ABG Glucose VBG pH Oxyhemoglobin Carboxyhemoglobin Sodium Potassium Chloride Carbon Dioxide 35 H BUN 34 H Creatinine Glucose 107 H POC Glucose 138 H Lactic Acid Calcium Phosphorus Magnesium Total Bilirubin AST ALT Ammonia Lactate Dehydrogenase Total Creatine Kinase CK-MB (CK-2) Troponin T NT-Pro-B Natriuret Pep Total Protein Albumin Triglycerides TSH Arterial Blood Glucose Arterial Blood Ionized Calcium Urine pH Urine WBC (Auto) Urine Creatinine 10/29/20 10/29/20 10/29/20 05:21 11:49 23:19 WBC RBC Hgb Hct RDW Lymph % (Auto) [place] % (Auto) Lymph # (Auto) [place] # (Auto) Seg Neutrophils % Lymphocytes % (Manual) Monocytes % (Manual) Seg Neutrophils # Seg Neutrophils # Man Lymphocytes # (Manual) Monocytes # (Manual) D-Dimer Heparin Anti-Xa Level ABG pH POC ABG pCO2 POC ABG pO2 ABG pO2 ABG HCO3 ABG O2 Saturation ABG Base Excess ABG Hemoglobin ABG Oxyhemoglobin ABG Sodium ABG Potassium ABG Chloride ABG Glucose VBG pH Oxyhemoglobin Carboxyhemoglobin Sodium Potassium Chloride Carbon Dioxide BUN Creatinine Glucose POC Glucose 115 H 124 H 129 H Lactic Acid Calcium Phosphorus Magnesium Total Bilirubin AST ALT Ammonia Lactate Dehydrogenase Total Creatine Kinase CK-MB (CK-2) Troponin T NT-Pro-B Natriuret Pep Total Protein Albumin Triglycerides TSH Arterial Blood Glucose Arterial Blood Ionized Calcium Urine pH Urine WBC (Auto) Urine Creatinine 10/30/20 10/30/20 10/30/20 04:59 05:10 11:52 WBC RBC Hgb Hct RDW Lymph % (Auto) [place] % (Auto) Lymph # (Auto) [place] # (Auto) Seg Neutrophils % Lymphocytes % (Manual) Monocytes % (Manual) Seg Neutrophils # Seg Neutrophils # Man Lymphocytes # (Manual) Monocytes # (Manual) D-Dimer Heparin Anti-Xa Level ABG pH POC ABG pCO2 POC ABG pO2 ABG pO2 ABG HCO3 ABG O2 Saturation ABG Base Excess ABG Hemoglobin ABG Oxyhemoglobin ABG Sodium ABG Potassium ABG Chloride ABG Glucose VBG pH Oxyhemoglobin Carboxyhemoglobin Sodium Potassium Chloride Carbon Dioxide 34 H BUN 33 H Creatinine Glucose 128 H POC Glucose 126 H 132 H Lactic Acid Calcium Phosphorus Magnesium Total Bilirubin AST ALT Ammonia Lactate Dehydrogenase Total Creatine Kinase CK-MB (CK-2) Troponin T NT-Pro-B Natriuret Pep Total Protein Albumin Triglycerides TSH Arterial Blood Glucose Arterial Blood Ionized Calcium Urine pH Urine WBC (Auto) Urine Creatinine 10/30/20 10/30/20 10/31/20 16:59 23:19 04:00 WBC RBC Hgb Hct RDW Lymph % (Auto) [place] % (Auto) Lymph # (Auto) [place] # (Auto) Seg Neutrophils % Lymphocytes % (Manual) Monocytes % (Manual) Seg Neutrophils # Seg Neutrophils # Man Lymphocytes # (Manual) Monocytes # (Manual) D-Dimer Heparin Anti-Xa Level ABG pH POC ABG pCO2 POC ABG pO2 ABG pO2 ABG HCO3 ABG O2 Saturation ABG Base Excess ABG Hemoglobin ABG Oxyhemoglobin ABG Sodium ABG Potassium ABG Chloride ABG Glucose VBG pH Oxyhemoglobin Carboxyhemoglobin Sodium Potassium Chloride Carbon Dioxide 38 H BUN 32 H Creatinine Glucose 121 H POC Glucose 118 H 138 H Lactic Acid Calcium Phosphorus Magnesium Total Bilirubin AST ALT Ammonia Lactate Dehydrogenase Total Creatine Kinase CK-MB (CK-2) Troponin T NT-Pro-B Natriuret Pep Total Protein Albumin Triglycerides TSH Arterial Blood Glucose Arterial Blood Ionized Calcium Urine pH Urine WBC (Auto) Urine Creatinine 10/31/20 10/31/20 10/31/20 05:13 11:09 16:17 WBC RBC Hgb Hct RDW Lymph % (Auto) [place] % (Auto) Lymph # (Auto) [place] # (Auto) Seg Neutrophils % Lymphocytes % (Manual) Monocytes % (Manual) Seg Neutrophils # Seg Neutrophils # Man Lymphocytes # (Manual) Monocytes # (Manual) D-Dimer Heparin Anti-Xa Level ABG pH POC ABG pCO2 71.1 H POC ABG pO2 67.4 L ABG pO2 ABG HCO3 ABG O2 Saturation ABG Base Excess ABG Hemoglobin 10.9 L ABG Oxyhemoglobin 90.7 L ABG Sodium ABG Potassium ABG Chloride ABG Glucose 134 H VBG pH Oxyhemoglobin Carboxyhemoglobin Sodium Potassium Chloride Carbon Dioxide BUN Creatinine Glucose POC Glucose 110 H 138 H Lactic Acid Calcium Phosphorus Magnesium Total Bilirubin AST ALT Ammonia Lactate Dehydrogenase Total Creatine Kinase CK-MB (CK-2) Troponin T NT-Pro-B Natriuret Pep Total Protein Albumin Triglycerides TSH Arterial Blood Glucose 134 H Arterial Blood Ionized Calcium Urine pH Urine WBC (Auto) Urine Creatinine 10/31/20 10/31/20 11/01/20 18:16 23:56 04:09 WBC 11.3 H RBC 3.05 L Hgb 9.0 L Hct 27.3 L RDW Lymph % (Auto) [place] % (Auto) Lymph # (Auto) [place] # (Auto) Seg Neutrophils % Lymphocytes % (Manual) Monocytes % (Manual) Seg Neutrophils # Seg Neutrophils # Man Lymphocytes # (Manual) Monocytes # (Manual) D-Dimer Heparin Anti-Xa Level ABG pH POC ABG pCO2 POC ABG pO2 ABG pO2 ABG HCO3 ABG O2 Saturation ABG Base Excess ABG Hemoglobin ABG Oxyhemoglobin ABG Sodium ABG Potassium ABG Chloride ABG Glucose VBG pH Oxyhemoglobin Carboxyhemoglobin Sodium Potassium Chloride Carbon Dioxide BUN Creatinine Glucose POC Glucose 135 H 122 H Lactic Acid Calcium Phosphorus Magnesium Total Bilirubin AST ALT Ammonia Lactate Dehydrogenase Total Creatine Kinase CK-MB (CK-2) Troponin T NT-Pro-B Natriuret Pep Total Protein Albumin Triglycerides TSH Arterial Blood Glucose Arterial Blood Ionized Calcium Urine pH Urine WBC (Auto) Urine Creatinine 11/01/20 11/01/20 11/01/20 05:10 11:51 17:17 WBC RBC Hgb Hct RDW Lymph % (Auto) [place] % (Auto) Lymph # (Auto) [place] # (Auto) Seg Neutrophils % Lymphocytes % (Manual) Monocytes % (Manual) Seg Neutrophils # Seg Neutrophils # Man Lymphocytes # (Manual) Monocytes # (Manual) D-Dimer Heparin Anti-Xa Level ABG pH POC ABG pCO2 POC ABG pO2 ABG pO2 ABG HCO3 ABG O2 Saturation ABG Base Excess ABG Hemoglobin ABG Oxyhemoglobin ABG Sodium ABG Potassium ABG Chloride ABG Glucose VBG pH Oxyhemoglobin Carboxyhemoglobin Sodium Potassium Chloride Carbon Dioxide BUN Creatinine Glucose POC Glucose 123 H 123 H 120 H Lactic Acid Calcium Phosphorus Magnesium Total Bilirubin AST ALT Ammonia Lactate Dehydrogenase Total Creatine Kinase CK-MB (CK-2) Troponin T NT-Pro-B Natriuret Pep Total Protein Albumin Triglycerides TSH Arterial Blood Glucose Arterial Blood Ionized Calcium Urine pH Urine WBC (Auto) Urine Creatinine 11/02/20 11/02/20 11/02/20 03:14 05:37 05:37 WBC RBC Hgb 9.8 L Hct 29.5 L RDW Lymph % (Auto) [place] % (Auto) Lymph # (Auto) [place] # (Auto) Seg Neutrophils % Lymphocytes % (Manual) Monocytes % (Manual) Seg Neutrophils # Seg Neutrophils # Man Lymphocytes # (Manual) Monocytes # (Manual) D-Dimer Heparin Anti-Xa Level ABG pH POC ABG pCO2 58.9 H POC ABG pO2 79.9 L ABG pO2 ABG HCO3 ABG O2 Saturation ABG Base Excess ABG Hemoglobin 10.6 L ABG Oxyhemoglobin ABG Sodium ABG Potassium ABG Chloride ABG Glucose 110 H VBG pH Oxyhemoglobin Carboxyhemoglobin Sodium Potassium Chloride Carbon Dioxide 37 H BUN 28 H Creatinine Glucose 106 H POC Glucose Lactic Acid Calcium Phosphorus Magnesium Total Bilirubin AST ALT Ammonia Lactate Dehydrogenase Total Creatine Kinase CK-MB (CK-2) Troponin T NT-Pro-B Natriuret Pep Total Protein Albumin Triglycerides TSH Arterial Blood Glucose 110 H Arterial Blood Ionized Calcium Urine pH Urine WBC (Auto) Urine Creatinine 11/02/20 11/03/20 11/03/20 23:29 04:45 04:45 WBC 11.8 H RBC 3.07 L Hgb 9.0 L Hct 27.2 L RDW Lymph % (Auto) 11.4 L [place] % (Auto) 9.5 H Lymph # (Auto) [place] # (Auto) 1.1 H Seg Neutrophils % 75.9 H Lymphocytes % (Manual) Monocytes % (Manual) Seg Neutrophils # 9.0 H Seg Neutrophils # Man Lymphocytes # (Manual) Monocytes # (Manual) D-Dimer Heparin Anti-Xa Level ABG pH POC ABG pCO2 POC ABG pO2 ABG pO2 ABG HCO3 ABG O2 Saturation ABG Base Excess ABG Hemoglobin ABG Oxyhemoglobin ABG Sodium ABG Potassium ABG Chloride ABG Glucose VBG pH Oxyhemoglobin Carboxyhemoglobin Sodium 146 H Potassium Chloride Carbon Dioxide 39 H BUN 26 H Creatinine Glucose POC Glucose 129 H Lactic Acid Calcium Phosphorus Magnesium Total Bilirubin AST ALT Ammonia Lactate Dehydrogenase Total Creatine Kinase CK-MB (CK-2) Troponin T NT-Pro-B Natriuret Pep Total Protein Albumin Triglycerides TSH Arterial Blood Glucose Arterial Blood Ionized Calcium Urine pH Urine WBC (Auto) Urine Creatinine 11/03/20 11/03/20 11/03/20 05:05 11:51 17:43 WBC RBC Hgb Hct RDW Lymph % (Auto) [place] % (Auto) Lymph # (Auto) [place] # (Auto) Seg Neutrophils % Lymphocytes % (Manual) Monocytes % (Manual) Seg Neutrophils # Seg Neutrophils # Man Lymphocytes # (Manual) Monocytes # (Manual) D-Dimer Heparin Anti-Xa Level ABG pH 7.452 H POC ABG pCO2 55.4 H POC ABG pO2 129.1 H ABG pO2 ABG HCO3 ABG O2 Saturation ABG Base Excess ABG Hemoglobin 9.3 L ABG Oxyhemoglobin ABG Sodium ABG Potassium ABG Chloride ABG Glucose 99 H VBG pH Oxyhemoglobin Carboxyhemoglobin 1.7 H Sodium Potassium Chloride Carbon Dioxide BUN Creatinine Glucose POC Glucose 131 H 125 H Lactic Acid Calcium Phosphorus Magnesium Total Bilirubin AST ALT Ammonia Lactate Dehydrogenase Total Creatine Kinase CK-MB (CK-2) Troponin T NT-Pro-B Natriuret Pep Total Protein Albumin Triglycerides TSH Arterial Blood Glucose 99 H Arterial Blood Ionized Calcium Urine pH Urine WBC (Auto) Urine Creatinine 11/03/20 11/04/20 11/04/20 23:27 04:00 05:10 WBC RBC Hgb Hct RDW Lymph % (Auto) [place] % (Auto) Lymph # (Auto) [place] # (Auto) Seg Neutrophils % Lymphocytes % (Manual) Monocytes % (Manual) Seg Neutrophils # Seg Neutrophils # Man Lymphocytes # (Manual) Monocytes # (Manual) D-Dimer Heparin Anti-Xa Level ABG pH POC ABG pCO2 POC ABG pO2 ABG pO2 ABG HCO3 ABG O2 Saturation ABG Base Excess ABG Hemoglobin ABG Oxyhemoglobin ABG Sodium ABG Potassium ABG Chloride ABG Glucose VBG pH Oxyhemoglobin Carboxyhemoglobin Sodium Potassium Chloride 95.2 L Carbon Dioxide 40 H BUN 26 H Creatinine Glucose 128 H POC Glucose 148 H 126 H Lactic Acid Calcium Phosphorus Magnesium Total Bilirubin AST ALT Ammonia Lactate Dehydrogenase Total Creatine Kinase CK-MB (CK-2) Troponin T NT-Pro-B Natriuret Pep Total Protein Albumin Triglycerides TSH Arterial Blood Glucose Arterial Blood Ionized Calcium Urine pH Urine WBC (Auto) Urine Creatinine Chest x-ray: image reviewed (improved infiltrates) Allied health notes reviewed: nursing
[2020-11-04] MEDS ORDERED: GLYCOPYRROLATE 2 MG TAB PO SCH (13:11)
[2020-11-04] MEDS: FUROSEMIDE 20 MG/2 ML INJ IV SCH (14:27)
[2020-11-04] MEDS: GLYCOPYRROLATE 1 MG TAB PO SCH ×2 (14:27→21:38)
--- NOTE | 2020-11-04 15:36 | Progress Note ---
Assessment and Plan he pt is a 55-year-old -[place] male with a past medical history of hypertension, asthma, obesity. He is intubated and sedated on evaluation and thus HPI is obtained per the chart. Pt presented to ED after Covid vaccine and passed out with seizure like activity in the car at the emergency room bay. Patient was found to be unresponsive and with no pulse. ACLS protocol was initiated from the car to the emergency room with continued ACLS protocol. Patient was intubated and after couple of epi ROSC obtained. Central line was p laced and patient was also started on pressors. Patient did not have any fever shortness of breath or cough or any symptoms prior to the COVID-19 vaccination. Patient coded twice in the emergency room. One before the imaging studies and once after the imaging studies. Pt remains intubated, intermittently sedated, intermittent blinking of eyes to painful stimulus (sternal rub) noted. Neurology f/u noted - pt with suspected anoxic brain injury. Brain MRI shows diffuse restricted diffusion and increased T2 signal in the cerebral cortex, findings can be seen in setting of anoxic brain injury and/or status epilepticus. Per primary team, pt is not tolerating weaning from ventilator. Pt is being considered for Trach & Peg. Pt is moderate cardiovascular risk patient going for moderate risk procedure. no cardiac contraindications for trach and peg. tte reviewed - EF 55-60%, mod LVH, mild diastolic dysfunction. (11/01/20) Pt is s/p Trach and PEG placement. Unresponsive. Tele reviewed: SR 93. Paroxismal AFib. Paroxismal Afib RVR Currently in sinus rhythm with paroxysmal AF with CVR. No systemic AC at this time in regards to paroxysmal AFib/AFlutter given h/o GI bleeding while on heparin gtt. Consider Amio gtt if needed for rate control. s/p Cardiac Arrest Pt was admitted as a witnessed arrest per HPI. Acute Respiratory Failure s/p Trach & PEG. 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 Currently 30% FIO2 Seizure Currently on Keppra gtt. Neuro is following. HTN Continue current antihypertensive regimen: Amlodipine 10mg, Clonidine patch, Hydralazine 100mg TID, Metoprolol 100mg TID. repeat BMP in am. DVT prophylaxis Cont Heparin SQ prophylaxis. Continue SCD therapy. Nothing further to add from cardiology standpoint. Will follow on as needed basis. The patient has been seen in conjunction with Dr. Bill Steen who agrees with the assessment and plan of care. - Patient Problems (1) AMS (altered mental status) Current Visit: Yes Status: Acute (2) Cardiopulmonary arrest with successful resuscitation Current Visit: Yes Status: Acute (3) Acute respiratory failure Current Visit: Yes Status: Acute Qualifiers: Respiratory failure complication: hypoxia and hypercapnia Qualified Code(s): J96.01 - Acute respiratory failure with hypoxia; J96.02 - Acute respiratory failure with hypercapnia (4) Bilateral pneumonia Current Visit: Yes Status: Acute (5) Sepsis with hypotension Current Visit: Yes Status: Acute (6) Person under investigation for COVID-19 Current Visit: Yes Status: Ruled-out (7) Seizure Current Visit: Yes Status: Suspected (8) NSTEMI (non-ST elevated myocardial infarction) Current Visit: Yes Status: Acute (9) MOE (acute kidney injury) Current Visit: Yes Status: Acute (10) GI bleed Current Visit: Yes Status: Acute (11) Acute heart failure with preserved ejection fraction (HFpEF) Current Visit: Yes Status: Acute (12) Hypernatremia Current Visit: Yes Status: Acute (13) Atrial fibrillation and flutter Current Visit: Yes Status: Acute (14) Anemia Current Visit: Yes Status: Acute Subjective Date of service: 11/04/20 Principal diagnosis: Cardiac arrest; Septic Shock; Ac. hypoxemic & hypercapnic resp failure; MOE Interval history: Pt is s/p Trach and PEG placement. Unresponsive. Tele reviewed: SR 93. Paroxysmal Afib. Objective Last Vital Signs Temp 142 F H 11/04/20 12:14 Pulse 87 11/04/20 14:27 Resp 20 11/04/20 14:00 BP 117/73 11/04/20 14:27 Pulse Ox 97 11/04/20 14:00 - Physical Examination General: Other (intubated) HEENT: Positive: Normocephaly Neck: Positive: neck supple, trachea midline, Other (Tracheostomy in place.) Cardiac: Positive: Reg Rate and Rhythm, S1/S2 Lungs: Positive: Ventilated Respirations Neuro: Positive: Other (intubated) Abdomen: Positive: Soft, Active Bowel Sounds Skin: Negative: Rash Extremities: Present: upper extr. pulses, lower extr. pulses. Absent: edema - Labs and Meds Comprehensive Metabolic Panel 11/04/20 Range/Units 04:00 Sodium 141 (137-145) mmol/L Potassium 3.7 (3.6-5.0) mmol/L Chloride 95.2 L (98-107) mmol/L Carbon Dioxide 40 H (22-30) mmol/L BUN 26 H (9-20) mg/dL Creatinine 1.2 (0.8-1.3) mg/dL Glucose 128 H (75-100) mg/dL Calcium 8.6 (8.4-10.2) mg/dL - Imaging and Cardiology EKG: report reviewed, image reviewed Echo: report reviewed (10/10/2020 - EF 55-60%, mod LVH, mild diastolic dysfunction) - Telemetry EKG Rhythm: Sinus Rhythm (Paroxysmal Atrial Fibrillation) - EKG Sinus rhythms and dysrhythmias: sinus rhythm Repolarization changes or abnormalities: ST suggestive of injury, Q-T interval prolongation - Allied health notes Allied health notes reviewed: nursing
[2020-11-04] MEDS: cloNIDine TTS 0.3 MG/24 HR PATCH TD SCH (15:43)
[2020-11-04] MEDS: ALBUTEROL 2.5 MG/3 ML NEBU IH PRN ×2 (16:31→19:40)
[2020-11-04] MEDS: ACETYLCYSTEINE 20% 200 MG/1 ML *FOR INHALATION USE INHALATION SCH (16:31)
--- NOTE | 2020-11-04 16:33 | Progress Note ---
Assessment and Plan Assessment and plan: This is a 55-year-old male with hypertension, asthma, obesity who was admitted on 10/10 after cardiac arrest x2 (supposedly after COVID-19 vaccine injection), sepsis, right-sided pneumonia, NSTEMI type II, acute heart failure, acute hypoxic respiratory failure, acute kidney injury and anoxic brain injury. Sepsis s/p multiple Cardiac Arrests S/p right-sided pneumonia MRSA in tracheal aspirate NSTEMI type II Acute heart failure Afib/Aflutter Leukocytosis Acute hypoxic respiratory failure Acute kidney injury (improved) Transaminitis HTN Obesity -Infectious disease, CCM, GI, nephrology, cardiology, surgery consulted, appreciate recommendations -Antibiotic therapy -10/18 recultured (blood/sputum/nasal discharge and urinalysis), tracheal aspirate with MRSA -S/p Linezolid -Continue antihypertensive regimen (changed to p.o.), titrate as needed -s/p IV amiodarone for A. fib/a flutter now on p.o. beta-shital -Trend CBC, BMP, LFT -trach/peg 10/27 -Resume SBT as tolerated and trach collar trials -Mucomyst 5 days -Avoid nephrotoxic medications, strict intake and output, renal ultrasound shows no obstruction -10/10 echocardiogram shows left internal systolic function normal, moderate concentric left ventricle hypertrophy, mild to side diastolic dysfunction, LVEF 55 to 60% with no pericardial effusion -Bilateral Doppler ultrasound negative for DVT/SVT which shows bilateral popliteal cysts -MRI Brain shows restricted diffusion and increased T2 signal cerebral cortex which can be seen in the setting of anoxic brain injury and/ or status epilepticus. -Repeat EEG shows significant generalized slowing compatible with to moderate severe diffuse neuropathy recently compatible with anoxic/ischemic en cephalopathy -s/p D5W at 50ml/hr x 1 liter, currently on tube feedings and tolerating GI/DVT prophylaxis: SCDs to bilateral lower extremities while in bed, PPI, Heparin subq Dispo: ICU/ possible LTACH The high probability of a clinically significant, sudden or life threatening deterioration of the [multi] system(s) required my full and direct attention, intervention and personal management. The aggregate critical care time was [35] minutes. This time is in addition to time spent performing reported procedures but includes the following: [x] Data Review and interpretation [x] Patient assessment and monitoring of vital signs [x] Documentation [x] Medication orders and management History Interval history: This is a 55-year-old male with hypertension, asthma, obesity in the emergency by presented to the emergency department on 10/10 after receiving a Covid vaccine being found unresponsive in his car in the emergency room bay with no pulse and ACLS protocol was initiated from his car to emergency room #21 where it was continued. Patient was intubated after ROSC was achieved and a central line was placed and the patient was initiated on pressors. In the emergency room patient seems to have seizure-like activity and then collapsed and was unresponsive with no palpable pulse and ACLS was again initiated patient with achievement of ROSC. Patient again coded with ACLS protocol in the CT room. Upon arrival to the ICU patient again coded and ROSC was achieved and he was placed on epinephrine, Lasix, heparin and sodium bicarbonate drip and sedated with propofol. An NG tube was placed, A-line was placed. Patient was admitted to the hospitalist service with consult to CCM, nephrology, infectious disease and cardiology. 10/11: Patient COVID-19 PCR is pending and he remains on mechanical ventilation, examination on assist control 400/30/12/0.95. Patient is scheduled for an echocardiogram and we will obtain bilateral lower extremity Doppler ultrasound given elevated D-dimer. Patient was supposed to have a CTA chest when he coded yesterday. We will begin trickle feeding. This morning patient was on a heparin drip and was noted to have bloody drainage from his NG tube. Heparin drip was discontinued. 10/12: Patient remains on propofol and Lasix drip at the time my examination and he is on assist control 400/25/12/0.60. Patient is hypokalemic this morning which was repleted. Nephrology discontinued Lasix drip and Diamox. Patient is hypertensive and has been started on hydralazine and beta-shital IV. He has b een titrated off his vasopressors since yesterday. Vancomycin discontinued. Patient is currently on cefepime and azithromycin. 10/13: Sedation vacation attempted today and patient was not responsive to verbal or painful stimuli, does not track or focus or follow commands. This morning the patient has some respiratory alkalosis on ABG, hypernatremia and metabolic alkalosis on BMP. His kidney functions has improved slightly. Patient still has leukocytosis and infectious disease was like to continue antibiotic therapy. GI evaluated the patient yesterday and started the patient on PPI does not plan to scope at this time. At the time my examination patient assist-control 400/20/12/0.40 and sedated on propofol at 20. 4/2: GI has recommended a CT abdomen since there is increased output from OG tube and an MRI brain without contrast has been ordered per neurology recommendations. EEG is pending and the patient has been started on Keppra per neurology.. Nutrition has been consulted for initiation of parenteral nutrition. Patient remains sedated with propofol and his hypernatremia, le ukocytosis, acute kidney injury and metabolic alkalosis is improving. Patient has hypokalemia today which was repleted. At the time of my examination patient was on assist control 400/14/10/0.40 and CCM has dropped his rate to 12 and PEEP to 8. We have labs ordered for a.m. He was given a clonidine patch given persistent hypertension and he remains on D5 water per nephrology. 10/15: This morning patient was started to have a low-grade fever and he will continue antibiotic therapy per infectious disease. He will remove Tuttle catheter today and place a condom cath. Patient's renal function is worsening with a BUN/creatinine of 57/2.4 today and he has hyperphosphatemia at 5.2. This morning the time my examination patient is sedated on fentanyl and has TPN infusing. He is on assist control 400/12/8/0.35. Per GI we will start trial of tube feedings initiation has been reconsulted for orders. 10/18: Patient was febrile overnight and infectious disease has recultured (blood/sputum/right nostril culture) and sent in urinalysis. Cefepime was extended due to high fever and was started on vancomycin. Tube feeding is at goal and we will discontinue his parenteral nutrition. Patient is unable to obtain his MRI due to increased hypoxia and nasal secretions. He will be started on CPAP trials today. This time I examination patient was sedated on fentanyl and had PPN running at 42. His renal function tests have worsened and now has hyperchloremia. Hypernatremia has resolved. 10/19: Patient's T-max was 100.2 and he was pancultured yesterday, remains on antibiotic therapy and still has copious drainage from his nostrils. Patient still has leukocytosis however his/creatinine improved slightly to 3.1 from 3.3. Patient's urinalysis from yesterday shows pyuria. Patient's tracheal aspirate from yesterday grew Staph aureus. Patient is on cefepime and vancomycin. 10/20: This morning at the time my examination patient was CPAP trial of 6 and his T-max was 100.9. Patient sedated on fentanyl at 2 just received IV push fentanyl for tachycardia. Today his creatinine is 2.8 from 3.1 yesterday. Infectious disease has stopped cefepime and vancomycin and started linezolid and MRSA PCR is pending. Today removed his NG tube and replaced it with OG tube. We will keep the patient normal saline at 75 mL's per hour for 3 L. Patient developed A. fib/a flutter overnight and cardiology has increased his Lopressor and IV amiodarone. We requested neurology evaluation today. 10/21: Cardiology we will increase Lopressor to 3 times daily and discontinue his amiodarone drip. Infectious disease would like a sinus CT when feasible however patient did have a moment of desatting earlier this week when we attempted MRI brain. And again yesterday when we attempted a "trial run" with positioning at bedside Patient is on linezolid for 10 days per ID. 10/22/20; patient was seen and evaluated this morning, patient had low-grade fever overnight. Patient is on Lopressor per cardiology recommendation. Patient did not follow commands, no improvement in mental status. Evaluated by neurology yesterday and neurology once MRI or CAT scan but cannot be done because patient desats when he lies flat. Patient is on linezolid per ID recommendation. Continue NG tube feeding. Continue with Keppra. Patient is on assist control with PEEP of 6. Management plan was discussed with his yesterday. 10/23/2020; patient is on Zyvox for positive MRSA from tracheal aspirate and nasa l secretion culture. Patient's mentation did not improve and does not follow commands. He was reevaluated by neurology and recommend MRI once patient is able to tolerate. MRI could not be done, CT scan could not be done because the patient could not lie flat. Clinically patient looks like she has anoxic encephalopathy. Patient is on NG tube feeding and on mechanical ventilation. Patient is on Keppra. Management plan was discussed with his . 10/24: This morning the patient is on AC TV 400,R 16, Peep 6 and FiO2 of 30% and sedated on 1mcg of Fentayl. He is hypernatremic and his kidney function tests have slightly improved. RN will attempt to obtain MRI Brain today since the patient was able to tolerate a "trial run" of being flat. [facility] plans to resume CPAP trials once MRI obtained. 10/25: This morning the time of examination patient was on assist control tidal volume 400, rate 16, PEEP 6, FiO2 30% and he is currently on CPAP. His MRI brain finding is consistent with status epilepticus or anoxic brain injury. Patient is EEG pending. No acute overnight events reported. 10/26: Patient has been on a CPAP trial 14/6 which she has been tolerating. Surgery was consulted for trach/PEG. Patient's hypernatremia and hyperchloremia slightly better as well as his kidney functions. He has received cardiac clearance for his trach and PEG. No acute events reported overnight. 10/27: At the time my examination patient was on CPAP trial 15/6 and 30% FiO2. Patient's electrolyte abnormalities were improving and sources kidney function. His T-max overnight was 99.3 and he remains on linezolid. No acute events reported overnight. 10/28: Yesterday patient had a trach and PEG placed. Patient remains n.p.o. as he has not been cleared by surgery to resume p.o. intake. Today he has slight leukocytosis which is likely reactive, hyponatremia, metabolic alkalosis however his kidney function continues to improve. No acute events overnight. 10/29: Plan to start tube feeding today, patient remains on mechanical ventilation with trach tube. Remains comatose without any change in mental status. Called and updated. 10/30: Vitals stable, patient remains on trach tube with ventilator. Tolerating tube feeding, otherwise clinically unchanged. Continue to provide supportive c are and wean off from vent as tolerated. 10/31: No acute events reported overnight. Patient is CPAP at the time my examination however he will be tried on trach collar and we will obtain an ABG within 2 hours. 11/01. Patient is on a trach collar at 35% FiO2, he was reported, patient received Lasix and will obtain an ABG at 2100. dr. Uribe updated his and his mother is at bedside visiting him. 11/02. Patient was rested on assist control due to "tube feedings" endotracheal tube however CXR looks mild atelectasis rather than pneumonia. [facility] has given the patient another dose of Lasix and will obtain a CXR in the a.m. Patient remains with low-grade fever and we will resume daily SBT as tolerated. We will obtain a.m. labs and resume tube feedings. 11/03: Overnight the patient was rested on assist control and this afternoon he received CPAP trials. Patient's CXR looks pulmonary edema and he received additional 20 mg of Lasix today and tomorrow. Dr. Uribe updated the patien t's family via phone today and they do not wish to change his code status. Patient's Robinul and scopolamine was decreased. 11/04: Patient was started on Mucomyst due to thick secretion, will continue gentle diuresis and again began T-piece trials. Pa this time my examination he was on CPAP trial 10 and was rested overnight, assist control. According to documentation patient rested on CPAP trial yesterday for approximately 4-1/2 hours. No acute events reported overnight. Hospitalist Physical - Constitutional Vitals: Temp Pulse Resp BP Pulse Ox 142 F H 91 H 21 146/76 100 11/04/20 12:14 11/04/20 16:00 11/04/20 16:00 11/04/20 16:00 11/04/20 16:00 General appearance: Present: no acute distress, well-nourished, other (opens eyes spontaneously, does not focus or track) - EENT Eyes: Present: PERRL ENT: poor dentition, ulcerations - Neck Neck: Present: normal ROM - Respiratory Respiratory effort: normal Respiratory: bilateral: diminished, rhonchi - Cardiovascular Rhythm: regular Heart Sounds: Present: S1 & S2. Absent: systolic murmur, diastolic murmur - Extremities Extremities: pulses intact, pulses symmetrical, normal temperature, normal color Peripheral Pulses: within normal limits - Abdominal General gastrointestinal: soft, non-tender, non-distended, normal bowel sounds - Integumentary Integumentary: Present: warm, dry - Psychiatric Psychiatric: other (Track/focus, does not follow commands, moves all extremities spontaneously) - Neurologic Neurologic: other (Moves all extremities spontaneously, does not focus/track does not follow commands) - Allied Health Allied health notes reviewed: nursing, RT HEART Score - HEART Score EKG: Non-specific Age: 45-65 Troponin: Troponin T 0.125 ng/mL (0.00-0.029) H* D 10/12/20 04:00 Troponin: 1-3x normal limit - Critical Actions Critical Actions: 4-6 pts:12-16.6% risk of adverse cardiac event. Should be admitted Results - Labs CBC & Chem 7: 11/03/20 04:45 11/04/20 04:00 Labs: Laboratory Last Values WBC 11.8 K/mm3 (4.5-11.0) H 11/03/20 04:45 RBC 3.07 M/mm3 (3.65-5.03) L 11/03/20 04:45 Hgb 9.0 gm/dl (11.8-15.2) L 11/03/20 04:45 Hct 27.2 % (35.5-45.6) L 11/03/20 04:45 MCV 89 fl (84-94) 11/03/20 04:45 MCH 29 pg (28-32) 11/03/20 04:45 MCHC 33 % (32-34) 11/03/20 04:45 RDW 14.9 % (13.2-15.2) 11/03/20 04:45 Plt Count 195 K/mm3 (140-440) 11/03/20 04:45 Lymph % (Auto) 11.4 % (13.4-35.0) L 11/03/20 04:45 Guthrie % (Auto) 9.5 % (0.0-7.3) H 11/03/20 04:45 Eos % (Auto) 2.7 % (0.0-4.3) 11/03/20 04:45 Baso % (Auto) 0.5 % (0.0-1.8) 11/03/20 04:45 Lymph # (Auto) 1.3 K/mm3 (1.2-5.4) 11/03/20 04:45 Guthrie # (Auto) 1.1 K/mm3 (0.0-0.8) H 11/03/20 04:45 Eos # (Auto) 0.3 K/mm3 (0.0-0.4) 11/03/20 04:45 Baso # (Auto) 0.1 K/mm3 (0.0-0.1) 11/03/20 04:45 Add Manual Diff Complete 10/10/20 18:18 Total Counted 100 10/10/20 18:18 Seg Neutrophils % 75.9 % (40.0-70.0) H 11/03/20 04:45 Seg Neuts % (Manual) 60.0 % (40.0-70.0) 10/10/20 18:18 Band Neutrophils % 27.0 % 10/10/20 18:18 Lymphocytes % (Manual) 4.0 % (13.4-35.0) L 10/10/20 18:18 Monocytes % (Manual) 9.0 % (0.0-7.3) H 10/10/20 18:18 Eosinophils % (Manual) 4.0 % (0.0-4.3) 10/10/20 10:48 Metamyelocytes % 1.0 % 10/10/20 10:48 Nucleated RBC % Not Reportable 10/10/20 18:18 Seg Neutrophils # 9.0 K/mm3 (1.8-7.7) H 11/03/20 04:45 Seg Neutrophils # Man 13.8 K/mm3 (1.8-7.7) H 10/10/20 18:18 Band Neutrophils # 6.2 K/mm3 10/10/20 18:18 Lymphocytes # (Manual) 0.9 K/mm3 (1.2-5.4) L 10/10/20 18:18 Abs React Lymphs (Man) 0.0 K/mm3 10/10/20 18:18 Monocytes # (Manual) 2.1 K/mm3 (0.0-0.8) H 10/10/20 18:18 Eosinophils # (Manual) 0.0 K/mm3 (0.0-0.4) 10/10/20 18:18 Basophils # (Manual) 0.0 K/mm3 (0.0-0.1) 10/10/20 18:18 Metamyelocytes # 0.0 K/mm3 10/10/20 18:18 Myelocytes # 0.0 K/mm3 10/10/20 18:18 Promyelocytes # 0.0 K/mm3 10/10/20 18:18 Blast Cells # 0.0 K/mm3 10/10/20 18:18 WBC Morphology Not Reportable 10/10/20 18:18 Hypersegmented Neuts Not Reportable 10/10/20 18:18 Hyposegmented Neuts Not Reportable 10/10/20 18:18 Hypogranular Neuts Not Reportable 10/10/20 18:18 Smudge Cells Not Reportable 10/10/20 18:18 Toxic Granulation Not Reportable 10/10/20 18:18 Toxic Vacuolation Not Reportable 10/10/20 18:18 Dohle Bodies Not Reportable 10/10/20 18:18 Pelger-Huet Anomaly Not Reportable 10/10/20 18:18 Dionicio Rods Not Reportable 10/10/20 18:18 Platelet Estimate Consistent w auto 10/10/20 18:18 Clumped Platelets Not Reportable 10/10/20 18:18 Plt Clumps, EDTA Not Reportable 10/10/20 18:18 Large Platelets Rare 10/10/20 18:18 Giant Platelets Rare 10/10/20 18:18 Platelet Satelliting Not Reportable 10/10/20 18:18 Plt Morphology Comment Not Reportable 10/10/20 18:18 RBC Morphology Not Reportable 10/10/20 18:18 Dimorphic RBCs Not Reportable 10/10/20 18:18 Polychromasia Not Reportable 10/10/20 18:18 Hypochromasia Not Reportable 10/10/20 18:18 Poikilocytosis Not Reportable 10/10/20 18:18 Anisocytosis Not Reportable 10/10/20 18:18 Microcytosis Not Reportable 10/10/20 18:18 Macrocytosis Not Reportable 10/10/20 18:18 Spherocytes Not Reportable 10/10/20 18:18 Pappenheimer Bodies Not Reportable 10/10/20 18:18 Sickle Cells Not Reportable 10/10/20 18:18 Target Cells Not Reportable 10/10/20 18:18 Tear Drop Cells Not Reportable 10/10/20 18:18 Ovalocytes Not Reportable 10/10/20 18:18 Helmet Cells Not Reportable 10/10/20 18:18 [place] Bodies Not Reportable 10/10/20 18:18 [place] Rings Not Reportable 10/10/20 18:18 [place] Cells Not Reportable 10/10/20 18:18 Bite Cells Not Reportable 10/10/20 18:18 Crenated Cell Not Reportable 10/10/20 18:18 Elliptocytes Not Reportable 10/10/20 18:18 Acanthocytes (Spur) Not Reportable 10/10/20 18:18 Rouleaux Not Reportable 10/10/20 18:18 Hemoglobin C Crystals Not Reportable 10/10/20 18:18 Schistocytes Not Reportable 10/10/20 18:18 Malaria parasites Not Reportable 10/10/20 18:18 Mauricio Bodies Not Reportable 10/10/20 18:18 Hem Pathologist Commnt No 10/10/20 18:18 PT 13.5 Sec. (12.2-14.9) 10/28/20 07:00 INR 1.05 (0.87-1.13) 10/28/20 07:00 APTT 26.9 Sec. (24.2-36.6) 10/10/20 18:18 D-Dimer 679.5 ng/mlDDU (0-234) H 10/10/20 10:48 Heparin Anti-Xa Level 0.22 U.I./ml (0.3-0.7) L 10/11/20 08:35 ABG pH 7.452 (7.320-7.450) H 11/03/20 05:05 POC ABG pCO2 55.4 mmHg (32.0-48.0) H 11/03/20 05:05 ABG pCO2 55.5 mm Hg 10/16/20 05:10 POC ABG pO2 129.1 mmHg (83-108) H 11/03/20 05:05 ABG pO2 104.5 mm Hg (80.0-90.0) H 10/16/20 05:10 POC ABG HCO3 37.8 11/03/20 05:05 ABG HCO3 35.1 mmol/L (20.0-26.0) H 10/16/20 05:10 ABG O2 Saturation 99.0 (0-100) 11/03/20 05:05 ABG O2 Content 10.8 (0.0-44) 10/16/20 05:10 POC ABG Base Excess 12.3 11/03/20 05:05 ABG Base Excess 9.5 mmol/L (-2.0-3.0) H 10/16/20 05:10 ABG Hemoglobin 9.3 (12.0-17.5) L 11/03/20 05:05 ABG Oxyhemoglobin 97.0 (94-98) 11/03/20 05:05 ABG Carboxyhemoglobin 1.9 % (0.0-5.0) 10/16/20 05:10 ABG Methemoglobin 0.3 (0.0-1.5) 11/03/20 05:05 ABG Sodium 138.7 mmol/L (136.0-145.0) 11/03/20 05:05 ABG Potassium 4.0 mmol/L (3.40-4.50) 11/03/20 05:05 ABG Chloride 101.0 mmol/L (98-107) 11/03/20 05:05 ABG Glucose 99 mg/dL (65-95) H 11/03/20 05:05 VBG pH 6.870 (7.320-7.420) L* 10/10/20 10:48 Oxyhemoglobin 95.3 % (95.0-99.0) 10/16/20 05:10 Carboxyhemoglobin 1.7 (0.5-1.5) H 11/03/20 05:05 FiO2 35 % 10/16/20 05:10 FiO2 % 40.0 11/03/20 05:05 Sodium 141 mmol/L (137-145) 11/04/20 04:00 Potassium 3.7 mmol/L (3.6-5.0) 11/04/20 04:00 Chloride 95.2 mmol/L (98-107) L 11/04/20 04:00 Carbon Dioxide 40 mmol/L (22-30) H 11/04/20 04:00 Anion Gap 10 mmol/L 11/04/20 04:00 BUN 26 mg/dL (9-20) H 11/04/20 04:00 Creatinine 1.2 mg/dL (0.8-1.3) 11/04/20 04:00 Estimated GFR > 60 ml/min 11/04/20 04:00 BUN/Creatinine Ratio 22 % 11/04/20 04:00 Glucose 128 mg/dL (75-100) H 11/04/20 04:00 POC Glucose 126 mg/dL (70-105) H 11/04/20 05:10 Hemoglobin A1c 6.0 % (4-6) 10/11/20 02:00 Lactic Acid 1.10 mmol/L (0.7-2.0) 10/13/20 04:52 Calcium 8.6 mg/dL (8.4-10.2) 11/04/20 04:00 Phosphorus 5.20 mg/dL (2.5-4.5) H D 10/17/20 03:32 Magnesium 2.30 mg/dL (1.7-2.3) 10/17/20 03:32 Ferritin 81.4 ng/mL (30.0-300.0) 10/10/20 10:48 Total Bilirubin 1.70 mg/dL (0.1-1.2) H 10/18/20 03:27 AST 37 units/L (5-40) 10/18/20 03:27 ALT 32 units/L (7-56) 10/18/20 03:27 Alkaline Phosphatase 97 units/L (35-129) 10/18/20 03:27 Ammonia 214.0 umol/L (25-60) H 10/10/20 10:46 Lactate Dehydrogenase 386 units/L (91-180) H 10/10/20 10:48 Total Creatine Kinase 1192 units/L (55-170) H 10/10/20 18:18 CK-MB (CK-2) 21.7 ng/mL (0.0-4.0) H 10/10/20 18:18 CK-MB (CK-2) Rel Index 1.8 (0-4) 10/10/20 18:18 Troponin T 0.125 ng/mL (0.00-0.029) H* D 10/12/20 04:00 C-Reactive Protein 0.90 mg/dL (0.00-1.30) 10/10/20 10:48 NT-Pro-B Natriuret Pep 1187 pg/mL (0-900) H 10/10/20 10:46 Total Protein 6.3 g/dL (6.3-8.2) 10/18/20 03:27 Albumin 3.1 g/dL (3.9-5) L 10/18/20 03:27 Albumin/Globulin Ratio 1.0 % 10/18/20 03:27 Triglycerides 278 mg/dL (2-149) H 10/13/20 04:52 Cholesterol 138 mg/dL (50-199) 10/10/20 18:18 LDL Cholesterol Direct 76 mg/dL (50-130) 10/10/20 18:18 HDL Cholesterol 49 mg/dL (40-59) 10/10/20 18:18 Cholesterol/HDL Ratio 2.81 % 10/10/20 18:18 Procalcitonin 4.98 ng/mL (<0.15) 10/15/20 04:12 TSH 6.260 mlU/mL (0.270-4.200) H 10/10/20 10:46 Arterial Blood Glucose 99 mg/dL (65-95) H 11/03/20 05:05 Arterial Blood Ionized Calcium 4.6 mg/dL (4.6-5.3) 11/03/20 05:05 Urine Color Angelica (Yellow) 10/18/20 Unknown Urine Turbidity Cloudy (Clear) 10/18/20 Unknown Urine pH 5.0 (5.0-7.0) 10/18/20 Unknown Ur Specific [place] 1.017 (1.003-1.030) 10/18/20 Unknown Urine Protein 100 mg/dl mg/dL (Negative) 10/18/20 Unknown Urine Glucose (UA) Neg mg/dL (Negative) 10/18/20 Unknown Urine Ketones Neg mg/dL (Negative) 10/18/20 Unknown Urine Blood Lg (Negative) 10/18/20 Unknown Urine Nitrite Neg (Negative) 10/18/20 Unknown Urine Bilirubin Neg (Negative) 10/18/20 Unknown Urine Urobilinogen 4.0 mg/dL (<2.0) 10/18/20 Unknown Ur Leukocyte Esterase Neg (Negative) 10/18/20 Unknown Urine WBC (Auto) 115.0 /HPF (0.0-6.0) H 10/18/20 Unknown Urine RBC (Auto) 98.0 /HPF (0.0-6.0) 10/18/20 Unknown U Epithel Cells (Auto) 2.0 /HPF (0-13.0) 10/18/20 Unknown Urine WBC Clumps 3+ /HPF 10/18/20 Unknown Urine Mucus Few /HPF 10/11/20 13:30 Urine Eosinophils None seen (None Seen) 10/11/20 13:30 Urine Creatinine 93.7 mg/dL (0.1-20.0) H 10/19/20 13:14 Urine Sodium 25 mmol/L 10/19/20 13:14 Urine Urea Nitrogen 845 10/19/20 13:14 Nasal Screen MRSA (PCR) Positive (Negative) 10/20/20 13:30 Random Vancomycin 5.8 ug/mL (0-40.0) 10/21/20 06:30 Urine Opiates Screen Negative 10/10/20 10:50 Urine Methadone Screen Negative 10/10/20 10:50 Ur Barbiturates Screen Negative 10/10/20 10:50 Ur Phencyclidine Scrn Negative 10/10/20 10:50 Ur Amphetamines Screen Negative 10/10/20 10:50 U Benzodiazepines Scrn Negative 10/10/20 10:50 Urine Cocaine Screen Negative 10/10/20 10:50 U Marijuana (THC) Screen Positive 10/10/20 10:50 Drugs of Abuse Note Disclamer 10/10/20 10:50 Plasma/Serum Alcohol < 0.01 % (0-0.07) 10/10/20 10:48 Coronavirus (PCR) Negative (Negative) 10/11/20 Unknown Blood Type AB POSITIVE 10/10/20 10:48 Antibody Screen Negative 10/10/20 10:48 Tuttle/IV: Voiding Method Incontinent Active Medications - Current Medications Current Medications: Generic Name Dose Route Start Last Admin Trade Name Freq PRN Reason Stop Dose Admin Acetaminophen 650 mg 10/10/20 21:51 10/20/20 09:11 Acetaminophen 325 Mg Tab PO 650 mg Q4H PRN Administration Pain MILD(1-3)/Fever >100.5/SALV[place]OR Acetaminophen 650 mg 10/11/20 11:24 10/17/20 17:16 Acetaminophen 650 Mg Rect Supp W[place] 650 mg Q6H PRN Administration Fever >101 Acetylcysteine 200 mg 11/04/20 16:00 Acetylcysteine 20% 200 Mg/1 Ml *For Inhalation Use* INHALATION Q8HRT PEPITO Albuterol 2.5 mg 10/11/20 13:12 Albuterol 2.5 Mg/3 Ml Nebu IH Q6HRT PRN Shortness Of Breath Amlodipine Besylate 10 mg 10/25/20 13:00 11/04/20 09:26 Amlodipine 10 Mg Tab PO 10 mg QDAY PEPITO Administration Lipase/Protease/Amylase 1 each 10/10/20 22:18 Lipase 10,500/Protease 25,000/Amylase 43,750 (Units) Dr Santana FEEDTUBE PRN PRN For Clogged Feeding Tube Clonidine HCl 0.3 mg 10/14/20 15:00 11/04/20 15:43 Clonidine Tts 0.3 Mg/24 Hr Patch TD 0.3 mg Fr PEPITO Administration Docusate Sodium 100 mg 10/16/20 22:00 11/04/20 09:25 Docusate Sodium 100 Mg/10 Ml Oral Liqd PO 100 mg BID PEPITO Administration Furosemide 20 mg 11/02/20 14:00 11/02/20 14:06 Furosemide 20 Mg/2 Ml Inj IV 20 mg ONCE PEPITO Administration Glycopyrrolate 1 mg 11/04/20 14:00 11/04/20 14:27 Glycopyrrolate 1 Mg Tab PO 1 mg Q8HR PEPITO Administration Heparin Sodium (Porcine) 5,000 unit 10/11/20 22:00 11/04/20 10:43 Heparin 5,000 Unit/1 Ml Vial SUB-Q 5,000 unit Q12HR PEPITO Administration Hydralazine HCl 100 mg 10/24/20 09:30 11/04/20 14:27 Hydralazine 25 Mg Tab PO 100 mg Q8HR PEPITO Administration Hydralazine HCl 10 mg 11/02/20 08:46 Hydralazine 20 Mg/1 Ml Inj IV Q6H PRN Hypertension Hydromorphone HCl 0.5 mg 11/01/20 20:55 11/02/20 21:00 Hydromorphone 1 Mg/1 Ml Inj IV 0.5 mg Q3H PRN Administration Pain , Severe (7-10) Hydrophilic Ointment 1 applic 10/10/20 10:34 Lip Therapy Vaseline TP Q2HR PRN Dry Lips Lansoprazole 30 mg 10/24/20 10:00 11/04/20 09:26 Lansoprazole 30 Mg Solutab FEEDTUBE 30 mg BID PEPITO Administration Levetiracetam 500 mg 10/31/20 10:00 11/04/20 09:25 Levetiracetam 500 Mg/5 Ml Oral Liqd PO 500 mg BID PEPITO Administration Metoclopramide HCl 10 mg 10/10/20 21:51 Metoclopramide 10 Mg/2 Ml Inj IV Q6H PRN Nausea And Vomiting Metoprolol Tartrate 100 mg 10/21/20 14:00 11/04/20 14:27 Metoprolol Tartrate 50 Mg Tab PO 100 mg TID PEPITO Administration Multi-Ingred Cream/Lotion/Oil/Oint 1 applic 10/10/20 10:34 Mineral Oil/Petrolatum, White Ophth Oint 3.5 Gm OU Q4HR PRN Dry Eye(s) Ondansetron HCl 4 mg 10/10/20 21:51 11/01/20 20:48 Ondansetron 4 Mg/2 Ml Inj IV 4 mg Q3H PRN Administration Nausea And Vomiting Polyethylene Glycol 17 gm 10/17/20 10:00 11/04/20 09:26 Polyethylene Glycol 3350 17 Gm Powder PO 17 gm QDAY PEPITO Administration Quetiapine Fumarate 100 mg 11/02/20 10:00 11/04/20 09:26 Quetiapine 100 Mg Tab PO 100 mg DAILY PEPITO Administration Quetiapine Fumarate 150 mg 11/01/20 22:00 11/03/20 21:38 Quetiapine 100 Mg Tab PO 150 mg QHS PEPITO Administration Scopolamine 1 each 10/17/20 10:00 11/04/20 09:36 Scopolamine Transdermal Patch 72 Hr TD 1 each Q3D PEPITO Administration Simple Syrup 15 ml 10/10/20 22:18 Simple Syrup 15 Ml FEEDTUBE PRN PRN Hypoglycemia Simple Syrup 30 ml 10/10/20 22:18 Simple Syrup 15 Ml FEEDTUBE PRN PRN Hypoglycemia Sodium Bicarbonate 325 mg 10/10/20 22:18 Sodium Bicarbonate 325 Mg Tab FEEDTUBE PRN PRN For Clogged Feeding Tube Sodium Chloride 10 ml 10/10/20 22:00 11/04/20 12:38 Sodium Chloride 0.9% 10 Ml Flush Syringe IV 10 ml BID PEPITO Administration Sodium Chloride 10 ml 10/10/20 21:51 10/21/20 09:56 Sodium Chloride 0.9% 10 Ml Flush Syringe IV 10 ml PRN PRN Administration LINE FLUSH Nutrition/Malnutrition Assess - Dietary Evaluation Nutrition/Malnutrition Findings: Nutrition Notes Start: 10/11/20 08:38 Freq: Status: Active Protocol: Document 11/04/20 13:10 CW (Rec: 11/04/20 13:14 CW [id number]) Nutrition Notes Initial or Follow up Reassessment Current Diagnosis Acute Kidney Injury,Sepsis, Hypertension,Heart Failure, Respiratory Failure Other Pertinent Diagnosis GIB, pneu, MRSA [place], pulmonary edema Current Diet Promote at 80 ml/hr Labs/Tests BUN 26 Pertinent Medications Miralax Colace Lasix Height 6 ft Weight 135.8 kg [place] Body Weight (kg) 80.90 BMI 40.6 Weight change and time frame weight change d/t fluid overload Weight Status Morbidly Obese Subjective/Other Information F/U for TF tolerance and vent status. Pt remains on mechanical vent. TF running at goal and is being tolerated well. Percent of energy/protein needs met: 100%/74% Burn Absent Trauma Absent Difficulty In Swallowing Skin Integrity/Comment DTI to heel Current % PO Negligible Minimum of two criteria No Fluid Accumulation Mild (non-severe) #3 Nutrition Diagnosis Increased nutrient needs ( specify in comment below) Diagnosis Progress(for reassessment Continues documentation) #1 Nutrition Diagnosis Inadequate oral intake Diagnosis Progress(for reassessment Continues documentation) Is patient on ventilator? Yes Is Patient Ambulatory and/or Out of Bed No REE-([place]-confined to bed) 2692.656 Kcal/Kg value to use for calculation 15 Approximate Energy Requirements Using 2037 kcal/Kg Calculation Used for Recommendations Kcal/kg Additional Notes protein needs: >162g (>2 kgIBW of dry weight) fluid needs: 1 ml/kcal or per MD Nutrition Intervention Change Diet Order: Continue Nutrition Support: Promote at 80 ml/hr with a free water flush of 200 ml q4hr for hypernatremia. Once hypernatremia resolved, resume flush of 50 ml q4h. Kcal 1,920 Protein (gm) 120 Fluid (mL) 1,611 Goal #1 Tolerate TF Goal #2 Meet at least 70% of protein and 100% of kcal needs via TF Anticipated Discharge Needs: TF Follow-Up By: 11/09/20 Additional Comments F/U for TF tolerance, vent status
[2020-11-04] MEDS: LORazepam 2 MG/ML VIAL IV PRN ×2 (19:41→23:20)
[2020-11-05] MEDS: ACETYLCYSTEINE 20% 200 MG/1 ML *FOR INHALATION USE INHALATION SCH ×3 (02:19→15:31)
[2020-11-05] MEDS: ALBUTEROL 2.5 MG/3 ML NEBU IH PRN ×3 (02:19→15:31)
[2020-11-05 03:55] LABS: Hematocrit 26.7 % (35.5-45.6); Hemoglobin 9.1 gm/dl (11.8-15.2); Mean Corpuscular HGB Conc 34 % (32-34); Mean Corpuscular Volume 88 fl (84-94); Platelet Count 205 K/mm3 (140-440); Red Blood Count 3.02 M/mm3 (3.65-5.03); Red Cell Distribution Width 15.1 % (13.2-15.2)
[2020-11-05 04:11] LABS: BUN/Creatinine Ratio 22; Blood Urea Nitrogen 24 mg/dL (9-20); Calcium 8.5 mg/dL (8.4-10.2); Hemolysis Index 0
[2020-11-05] MEDS: hydrALAZINE 25 MG TAB PO SCH ×3 (05:16→23:14)
[2020-11-05] MEDS: GLYCOPYRROLATE 1 MG TAB PO SCH ×3 (05:16→23:14)
--- NOTE | 2020-11-05 08:12 | Progress Note ---
Assessment and Plan This is a 55-year-old male with hypertension, asthma, obesity who was admitted on 10/10 after cardiac arrest x2 (supposedly after COVID-19 vaccine injection), sepsis, right-sided pneumonia, NSTEMI type II, acute heart failure, acute hypoxic respiratory failure, acute kidney injury and anoxic brain injury. Sepsis s/p multiple Cardiac Arrests S/p right-sided pneumonia MRSA in tracheal aspirate NSTEMI type II Acute heart failure Afib/Aflutter Leukocytosis Acute hypoxic respiratory failure Acute kidney injury (improved) Transaminitis HTN Obesity -Infectious disease, CCM, GI, nephrology, cardiology, surgery consulted, appreciate recommendations -Antibiotic therapy -10/18 recultured (blood/sputum/nasal discharge and urinalysis), tracheal aspirate with MRSA -S/p Linezolid -Continue antihypertensive regimen (changed to p.o.), titrate as needed -s/p IV amiodarone for A. fib/a flutter now on p.o. beta-shital -Trend CBC, BMP, LFT -trach/peg 10/27 -Resume SBT as tolerated and trach collar trials -Mucomyst 5 days -Avoid nephrotoxic medications, strict intake and output, renal ultrasound shows no obstruction -10/10 echocardiogram shows left internal systolic function normal, moderate concentric left ventricle hypertrophy, mild to side diastolic dysfunction, LVEF 55 to 60% with no pericardial effusion -Bilateral Doppler ultrasound negative for DVT/SVT which shows bilateral popliteal cysts -MRI Brain shows restricted diffusion and increased T2 signal cerebral cortex which can be seen in the setting of anoxic brain injury and/ or status epilepticus. -Repeat EEG shows significant generalized slowing compatible with to moderate severe diffuse neuropathy recently compatible with anoxic/ischemic encephalopathy -s/p D5W at 50ml/hr x 1 liter, currently on tube feedings and tolerating GI/DVT prophylaxis: SCDs to bilateral lower extremities while in bed, PPI, Heparin subq Dispo: ICU/ possible LTACH The high probability of a clinically significant, sudden or life threatening deterioration of the [multi] system(s) required my full and direct attention, intervention and personal management. The aggregate critical care time was [35] minutes. This time is in addition to time spent performing reported procedures but includes the following: [x] Data Review and interpretation [x] Patient assessment and monitoring of vital signs [x] Documentation [x] Medication orders and management Subjective Date of service: 11/05/20 Principal diagnosis: Cardiac arrest; Septic Shock; Ac. hypoxemic & hypercapnic resp failure; MOE Interval history: This is a 55-year-old male with hypertension, asthma, obesity in the emergency by presented to the emergency department on 10/10 after receiving a Covid vaccine being found unresponsive in his car in the emergency room bay with no pulse and ACLS protocol was initiated from his car to emergency room #21 where it was continued. Patient was intubated after ROSC was achieved and a central line was placed and the patient was initiated on pressors. In the emergency room patient seems to have seizure-like activity and then collapsed and was unresponsive with no palpable pulse and ACLS was again initiated patient with achievement of ROSC. Patient again coded with ACLS protocol in the CT room. Upon arrival to the ICU patient again coded and ROSC was achieved and he was placed on epinephrine, Lasix, heparin and sodium bicarbonate drip and sedated with propofol. An NG tube was placed, A-line was placed. Patient was admitted to the hospitalist service with consult to [facility] nephrology, infectious disease and cardiology. 10/11: Patient COVID-19 PCR is pending and he remains on mechanical ventilation, examination on assist control 400/30/12/0.95. Patient is scheduled for an echocardiogram and we will obtain bilateral lower extremity Doppler ultrasound given elevated D-dimer. Patient was supposed to have a CTA chest when he coded yesterday. We will begin trickle feeding. This morning patient was on a heparin drip and was noted to have bloody drainage from his NG tube. Heparin drip was discontinued. 10/12: Patient remains on propofol and Lasix drip at the time my examination and he is on assist control 400/25/12/0.60. Patient is hypokalemic this morning which was repleted. Nephrology discontinued Lasix drip and Diamox. Patient is hypertensive and has been started on hydralazine and beta-shital IV. He has been titrated off his vasopressors since yesterday. Vancomycin discontinued. Patient is currently on cefepime and azithromycin. 10/13: Sedation vacation attempted today and patient was not responsive to verbal or painful stimuli, does not track or focus or follow commands. This morning the patient has some respiratory alkalosis on ABG, hypernatremia and metabolic alkalosis on BMP. His kidney functions has improved slightly. Patient still has leukocytosis and infectious disease was like to continue antibiotic therapy. GI evaluated the patient yesterday and started the patient on PPI does not plan to scope at this time. At the time my examination patient assist-control 400/20/12/0.40 and sedated on propofol at 20. 4/2: GI has recommended a CT abdomen since there is increased output from OG tube and an MRI brain without contrast has been ordered per neurology recommendations. EEG is pending and the patient has been started on Keppra per neurology.. Nutrition has been consulted for initiation of parenteral nutrition. Patient remains sedated with propofol and his hypernatremia, leukocytosis, acute kidney injury and metabolic alkalosis is improving. Patient has hypokalemia today which was repleted. At the time of my examination patiwilfred t was on assist control 400/14/10/0.40 and CCM has dropped his rate to 12 and PEEP to 8. We have labs ordered for a.m. He was given a clonidine patch given persistent hypertension and he remains on D5 water per nephrology. 3: This morning patient was started to have a low-grade fever and he will continue antibiotic therapy per infectious disease. He will remove Tuttle catheter today and place a condom cath. Patient's renal function is worsening with a BUN/creatinine of 57/2.4 today and he has hyperphosphatemia at 5.2. This morning the time my examination patient is sedated on fentanyl and has TPN infusing. He is on assist control 400/12/8/0.35. Per GI we will start trial of tube feedings initiation has been reconsulted for orders. 10/18: Patient was febrile overnight and infectious disease has recultured (blood/sputum/right nostril culture) and sent in urinalysis. Cefepime was e xtended due to high fever and was started on vancomycin. Tube feeding is at goal and we will discontinue his parenteral nutrition. Patient is unable to obtain his MRI due to increased hypoxia and nasal secretions. He will be started on CPAP trials today. This time I examination patient was sedated on fentanyl and had PPN running at 42. His renal function tests have worsened and now has hyperchloremia. Hypernatremia has resolved. 10/19: Patient's T-max was 100.2 and he was pancultured yesterday, remains on antibiotic therapy and still has copious drainage from his nostrils. Patient still has leukocytosis however his/creatinine improved slightly to 3.1 from 3.3. Patient's urinalysis from yesterday shows pyuria. Patient's tracheal aspirate from yesterday grew Staph aureus. Patient is on cefepime and vancomycin. 10/20: This morning at the time my examination patient was CPAP trial of 10/6 and his T-max was 100.9. Patient sedated on fentanyl at 2 just received IV push fentanyl for tachycardia. Today his creatinine is 2.8 from 3.1 yesterday. Infectious disease has stopped cefepime and vancomycin and started linezolid and MRSA PCR is pending. Today removed his NG tube and replaced it with OG tube. We will keep the patient normal saline at 75 mL's per hour for 3 L. Patient developed A. fib/a flutter overnight and cardiology has increased his Lopressor and IV amiodarone. We requested neurology evaluation today. 10/21: Cardiology we will increase Lopressor to 3 times daily and discontinue his amiodarone drip. Infectious disease would like a sinus CT when feasible however patient did have a moment of desatting earlier this week when we attempted MRI brain. And again yesterday when we attempted a "trial run" with positioning at bedside Patient is on linezolid for 10 days per ID. 10/22/20; patient was seen and evaluated this morning, patient had low-grade fever overnight. Patient is on Lopressor per cardiology recommendation. Patient did not follow commands, no improvement in mental status. Evaluated by neurology yesterday and neurology once MRI or CAT scan but cannot be done because patient desats when he lies flat. Patient is on linezolid per ID recommendation. Continue NG tube feeding. Continue with Keppra. Patient is on assist control with PEEP of 6. Management plan was discussed with his yesterday. 10/23/2020; patient is on Zyvox for positive MRSA from tracheal aspirate and nasal secretion culture. Patient's mentation did not improve and does not follow commands. He was reevaluated by neurology and recommend MRI once patient is able to tolerate. MRI could not be done, CT scan could not be done because the patient could not lie flat. Clinically patient looks like she has anoxic encephalopathy. Patient is on NG tube feeding and on mechanical ventilation. Patient is on Keppra. Management plan was discussed with his . 10/24: This morning the patient is on AC TV 400,R 16, Peep 6 and FiO2 of 30% and sedated on 1mcg of Fentayl. He is hypernatremic and his kidney function tests have slightly improved. RN will attempt to obtain MRI Brain today since the patient was able to tolerate a "trial run" of being flat. [facility] plans to resume CPAP trials once MRI obtained. 10/25: This morning the time of examination patient was on assist control tidal volume 400, rate 16, PEEP 6, FiO2 30% and he is currently on CPAP. His MRI brain finding is consistent with status epilepticus or anoxic brain injury. Patient is EEG pending. No acute overnight events reported. 10/26: Patient has been on a CPAP trial 14/6 which she has been tolerating. Surgery was consulted for trach/PEG. Patient's hypernatremia and hyperchloremia slightly better as well as his kidney functions. He has received cardiac clearance for his trach and PEG. No acute events reported overnight. 10/27: At the time my examination patient was on CPAP trial 15/6 and 30% FiO2. Patient's electrolyte abnormalities were improving and sources kidney function. His T-max overnight was 99.3 and he remains on linezolid. No acute events reported overnight. 10/28: Yesterday patient had a trach and PEG placed. Patient remains n.p.o. as he has not been cleared by surgery to resume p.o. intake. Today he has slight leukocytosis which is likely reactive, hyponatremia, metabolic alkalosis however his kidney function continues to improve. No acute events overnight. 10/29: Plan to start tube feeding today, patient remains on mechanical ventilation with trach tube. Remains comatose without any change in mental status. Called and updated. 10/30: Vitals stable, patient remains on trach tube with ventilator. Tolerating tube feeding, otherwise clinically unchanged. Continue to provide supportive care and wean off from vent as tolerated. 10/31: No acute events reported overnight. Patient is CPAP at the time my examination however he will be tried on trach collar and we will obtain an ABG within 2 hours. 11/01. Patient is on a trach collar at 35% FiO2, he was reported, patient received Lasix and will obtain an ABG at 2100. dr. Uribe updated his and his mother is at bedside visiting him. 11/02. Patient was rested on assist control due to "tube feedings" endotracheal tube however CXR looks mild atelectasis rather than pneumonia. [facility] has given the patient another dose of Lasix and will obtain a CXR in the a.m. Patient remains with low-grade fever and we will resume daily SBT as tolerated. We will obtain a.m. labs and resume tube feedings. 11/03: Overnight the patient was rested on assist control and this afternoon he received CPAP trials. Patient's CXR looks pulmonary edema and he received additional 20 mg of Lasix today and tomorrow. Dr. Uribe updated the patient's family via phone today and they do not wish to change his code status. Patient's Robinul and scopolamine was decreased. 11/04: Patient was started on Mucomyst due to thick secretion, will continue gentle diuresis and again began T-piece trials. Pa this time my examination he was on CPAP trial 10 and was rested overnight, assist control. According to documentation patient rested on CPAP trial yesterday for approximately 4-1/2 hours. No acute events reported overnight. 11/05 patient improved with Mucomyst. Attempted weaning to begin T-piece trial. Physical examination consistent with anoxia Objective - Constitutional Vitals: Vital Signs - 12hr 11/04/20 11/04/20 11/04/20 20:30 20:39 20:55 Temperature Pulse Rate 91 H Pulse Rate [ Anterior Right Throughout] Pulse Rate [ From Monitor] Respiratory 26 H Rate Respiratory Rate [Anterior Right Throughout] Blood Pressure 122/67 O2 Sat by Pulse 94 95 Oximetry O2 Sat by Pulse 95 Oximetry [ Assessment] 11/04/20 11/04/20 11/04/20 21:00 21:30 21:37 Temperature Pulse Rate 85 82 85 Pulse Rate [ Anterior Right Throughout] Pulse Rate [ From Monitor] Respiratory 27 H 25 H Rate Respiratory Rate [Anterior Right Throughout] Blood Pressure 122/68 118/70 118/70 O2 Sat by Pulse 97 98 Oximetry O2 Sat by Pulse Oximetry [ Assessment] 11/04/20 11/04/20 11/04/20 22:00 22:30 23:00 Temperature Pulse Rate 98 H 93 H 91 H Pulse Rate [ Anterior Right Throughout] Pulse Rate [ From Monitor] Respiratory 23 27 H 50 H Rate Respiratory Rate [Anterior Right Throughout] Blood Pressure 132/60 126/62 120/63 O2 Sat by Pulse 99 96 99 Oximetry O2 Sat by Pulse Oximetry [ Assessment] 11/04/20 11/04/20 11/05/20 23:30 23:47 00:00 Temperature 98.4 F Pulse Rate 91 H 89 Pulse Rate [ Anterior Right Throughout] Pulse Rate [ 89 From Monitor] Respiratory 27 H 25 H Rate Respiratory Rate [Anterior Right Throughout] Blood Pressure 114/56 128/56 O2 Sat by Pulse 96 96 Oximetry O2 Sat by Pulse Oximetry [ Assessment] 11/05/20 11/05/20 11/05/20 00:25 00:27 00:30 Temperature Pulse Rate 86 Pulse Rate [ Anterior Right Throughout] Pulse Rate [ From Monitor] Respiratory 25 H Rate Respiratory Rate [Anterior Right Throughout] Blood Pressure 131/56 O2 Sat by Pulse 98 97 Oximetry O2 Sat by Pulse 98 Oximetry [ Assessment] 11/05/20 11/05/20 11/05/20 01:00 01:30 02:00 Temperature Pulse Rate 79 98 H 96 H Pulse Rate [ Anterior Right Throughout] Pulse Rate [ From Monitor] Respiratory 24 22 28 H Rate Respiratory Rate [Anterior Right Throughout] Blood Pressure 131/56 159/89 160/96 O2 Sat by Pulse 95 79 L 86 Oximetry O2 Sat by Pulse Oximetry [ Assessment] 11/05/20 11/05/20 11/05/20 02:23 02:30 03:00 Temperature 99.1 F Pulse Rate 94 H 93 H Pulse Rate [ 100 H Anterior Right Throughout] Pulse Rate [ From Monitor] Respiratory 31 H 27 H Rate Respiratory 24 Rate [Anterior Right Throughout] Blood Pressure 156/91 153/72 O2 Sat by Pulse 94 99 Oximetry O2 Sat by Pulse Oximetry [ Assessment] 11/05/20 11/05/20 11/05/20 03:30 04:00 04:30 Temperature Pulse Rate 91 H 95 H 98 H Pulse Rate [ Anterior Right Throughout] Pulse Rate [ 95 H From Monitor] Respiratory 22 25 H 22 Rate Respiratory Rate [Anterior Right Throughout] Blood Pressure 149/68 147/67 155/89 O2 Sat by Pulse 95 97 Oximetry O2 Sat by Pulse Oximetry [ Assessment] 11/05/20 11/05/20 11/05/20 05:00 05:16 05:20 Temperature Pulse Rate 108 H 97 H 95 H Pulse Rate [ Anterior Right Throughout] Pulse Rate [ From Monitor] Respiratory 32 H Rate Respiratory Rate [Anterior Right Throughout] Blood Pressure 155/89 180/103 180/103 O2 Sat by Pulse 99 96 Oximetry O2 Sat by Pulse Oximetry [ Assessment] 11/05/20 11/05/20 05:30 06:00 Temperature Pulse Rate 84 71 Pulse Rate [ Anterior Right Throughout] Pulse Rate [ From Monitor] Respiratory 20 21 Rate Respiratory Rate [Anterior Right Throughout] Blood Pressure 148/76 148/76 O2 Sat by Pulse 93 95 Oximetry O2 Sat by Pulse Oximetry [ Assessment] General appearance: Present: no acute distress, obese - Respiratory Respiratory: bilateral: diminished - Cardiovascular Rhythm: regular Extremity abnormal: edema - Gastrointestinal General gastrointestinal: Present: soft, non-tender, non-distended, normal bowel sounds - Musculoskeletal Musculoskeletal: generalized weakness - Neurologic Neurologic: other (Note patient is without any purposeful movement.) - Labs CBC & Chem 7: 11/05/20 03:30 11/05/20 03:30 Labs: Abnormal lab results 11/04/20 11/04/20 11/04/20 Range/Units 11:39 18:00 21:18 RBC (3.65-5.03) M/mm3 Hgb (11.8-15.2) gm/dl Hct (35.5-45.6) % ABG pH 7.511 H (7.320-7.450) POC ABG pCO2 49.0 H (32.0-48.0) mmHg ABG Hemoglobin 9.5 L (12.0-17.5) ABG Sodium 135.7 L (136.0-145.0) mmol/L ABG Glucose 152 H (65-95) mg/dL Chloride (98-107) mmol/L Carbon Dioxide (22-30) mmol/L BUN (9-20) mg/dL Glucose (75-100) mg/dL POC Glucose 142 H 130 H (70-105) mg/dL Arterial Blood Glucose 152 H (65-95) mg/dL Arterial Blood Ionized Calcium 4.3 L (4.6-5.3) mg/dL 11/04/20 11/05/20 11/05/20 Range/Units 23:19 03:30 03:30 RBC 3.02 L (3.65-5.03) M/mm3 Hgb 9.1 L (11.8-15.2) gm/dl Hct 26.7 L (35.5-45.6) % ABG pH (7.320-7.450) POC ABG pCO2 (32.0-48.0) mmHg ABG Hemoglobin (12.0-17.5) ABG Sodium (136.0-145.0) mmol/L ABG Glucose (65-95) mg/dL Chloride 93.6 L (98-107) mmol/L Carbon Dioxide 40 H (22-30) mmol/L BUN 24 H (9-20) mg/dL Glucose 121 H (75-100) mg/dL POC Glucose 126 H (70-105) mg/dL Arterial Blood Glucose (65-95) mg/dL Arterial Blood Ionized Calcium (4.6-5.3) mg/dL 11/05/20 Range/Units 05:24 RBC (3.65-5.03) M/mm3 Hgb (11.8-15.2) gm/dl Hct (35.5-45.6) % ABG pH (7.320-7.450) POC ABG pCO2 (32.0-48.0) mmHg ABG Hemoglobin (12.0-17.5) ABG Sodium (136.0-145.0) mmol/L ABG Glucose (65-95) mg/dL Chloride (98-107) mmol/L Carbon Dioxide (22-30) mmol/L BUN (9-20) mg/dL Glucose (75-100) mg/dL POC Glucose 124 H (70-105) mg/dL Arterial Blood Glucose (65-95) mg/dL Arterial Blood Ionized Calcium (4.6-5.3) mg/dL - Imaging and cardiology Chest x-ray: report reviewed, image reviewed HEART Score - HEART Score EKG: Non-specific Age: 45-65 Troponin: Troponin T 0.125 ng/mL (0.00-0.029) H* D 10/12/20 04:00 Troponin: 1-3x normal limit - Critical Actions Critical Actions: 4-6 pts:12-16.6% risk of adverse cardiac event. Should be admitted
[2020-11-05] MEDS: METOPROLOL TARTRATE 50 MG TAB PO SCH ×3 (08:35→20:03)
[2020-11-05] MEDS: LANSOPRAZOLE 30 MG SOLUTAB FEEDTUBE SCH ×2 (09:35→23:16)
[2020-11-05] MEDS: amLODIPine 10 MG TAB PO SCH (09:36)
[2020-11-05] MEDS: POLYETHYLENE GLYCOL 3350 17 GM POWDER PO SCH (09:36)
[2020-11-05] MEDS: HEPARIN 5,000 UNIT/1 ML VIAL SUB-Q SCH ×2 (09:36→23:10)
[2020-11-05] MEDS: DOCUSATE SODIUM 100 MG/10 ML ORAL LIQD PO SCH ×2 (09:36→23:14)
[2020-11-05] MEDS: QUEtiapine 100 MG TAB PO SCH ×2 (09:36→23:17)
[2020-11-05] MEDS: levETIRAcetam 500 MG/5 ML ORAL LIQD PO SCH ×2 (09:39→23:15)
--- NOTE | 2020-11-05 14:09 | Progress Note ---
Assessment and Plan Cardiac arrest x3 with ROSC Severe septic and cardiogenic shock Acute respiratory failure with hypoxemia and hypercarbia Acute pulmonary edema MOE (acute kidney injury) Lactic acidosis, severe metabolic acidosis Bilateral pneumonia, aspiration pneumonia Elevated troponins - resume t-piece and go RTC as tolerated - continue mucomyst nebs X 5 days re: thick secretions - continue gentle diuresis - get ABG after 24 hours on t-piece - continue care as below otherwise; - continue Seroquel for agitation control - daily SAT's and SBT assessment as tolerated - continue contact precautions re: MRSA - complete anti-infective's per ID rec's - follow clinically re: fevers / WBC - Monitor hemodynamics closely - wean supplemental oxygen for target O2 sat's > 92% acutely - VAP bundle addressed - continue lung protective strategies - bronchodilators with pulmonary hygiene per RT - wean per pulmonary driven protocols otherwise - Monitor urine output closely - bicarbonate infusion - avoid nephrotoxins, renally dose all medications - continue to avoid benzodiazepine's, reduce the possibility of delirium - continue Scopolamine for secretion control - continue wound care per RN/WCN - prn analgesia per CPOT score - Maintenance of sleep-wake cycle, avoid delirium - continue enteral nutritional support at goal rate as tolerated - G.I. & VTE prophylaxis - PT/OT/ROM exercises - continue mobility protocols for pressure ulcer prophylaxis - Monitor hemodynamics closely - continue other care per attending / other consultants - discharge planning ongoing concurrently .... Re-evaluate in am & prn CONDITION: CRITICAL PROGNOSIS: GUARDED CODE STATUS: FULL CODE The high probability of a clinically significant, sudden or life-threatening deterioration of the [respiratory, cardiovascular & neurologic] system(s) required my full and direct attention, intervention and personal management. The aggregate critical care time was [32] minutes without overlap. Time includes spent on; [x] Data Review and interpretation [x] Patient assessment and monitoring of vital signs [x] Documentation [x] Medication orders and management Subjective Date of service: 11/05/20 Principal diagnosis: Cardiac arrest; Septic Shock; Ac. hypoxemic & hypercapnic resp failure; MOE Interval history: Patient is seen today for: Cardiac arrest with ROSC; Severe septic and car diogenic shock; Acute respiratory failure with hypoxemia and hypercarbia; Acute pulmonary edema; MOE; Lactic acidosis; severe metabolic acidosis; Bilateral pneumonia; aspiration pneumonia; Elevated troponins Seen and examined at bedside; 24hour events reviewed; nursing and respiratory c are staff consulted; no adverse overnight events reported to me; resting peacefully in bed; tolerated t-piece tenuously yesterday and had to be rested on full support; AMS is persistent; secretions are better; no emesis or overt aspiration; no seizures Objective Vital Signs - 12hr 11/05/20 11/05/20 11/05/20 02:23 02:30 03:00 Temperature 99.1 F Pulse Rate 94 H 93 H Pulse Rate [ Anterior Bilateral Throughout] Pulse Rate [ 100 H Anterior Right Throughout] Pulse Rate [ From Monitor] Respiratory 31 H 27 H Rate Respiratory Rate [Anterior Bilateral Throughout] Respiratory 24 Rate [Anterior Right Throughout] Blood Pressure 156/91 153/72 O2 Sat by Pulse 94 99 Oximetry O2 Sat by Pulse Oximetry [ Assessment] 11/05/20 11/05/20 11/05/20 03:30 04:00 04:30 Temperature Pulse Rate 91 H 95 H 98 H Pulse Rate [ Anterior Bilateral Throughout] Pulse Rate [ Anterior Right Throughout] Pulse Rate [ 95 H From Monitor] Respiratory 22 25 H 22 Rate Respiratory Rate [Anterior Bilateral Throughout] Respiratory Rate [Anterior Right Throughout] Blood Pressure 149/68 147/67 155/89 O2 Sat by Pulse 95 97 Oximetry O2 Sat by Pulse Oximetry [ Assessment] 11/05/20 11/05/20 11/05/20 05:00 05:16 05:20 Temperature Pulse Rate 108 H 97 H 95 H Pulse Rate [ Anterior Bilateral Throughout] Pulse Rate [ Anterior Right Throughout] Pulse Rate [ From Monitor] Respiratory 32 H Rate Respiratory Rate [Anterior Bilateral Throughout] Respiratory Rate [Anterior Right Throughout] Blood Pressure 155/89 180/103 180/103 O2 Sat by Pulse 99 96 Oximetry O2 Sat by Pulse Oximetry [ Assessment] 11/05/20 11/05/20 11/05/20 05:30 06:00 06:30 Temperature Pulse Rate 84 71 72 Pulse Rate [ Anterior Bilateral Throughout] Pulse Rate [ Anterior Right Throughout] Pulse Rate [ From Monitor] Respiratory 20 21 18 Rate Respiratory Rate [Anterior Bilateral Throughout] Respiratory Rate [Anterior Right Throughout] Blood Pressure 148/76 148/76 136/81 O2 Sat by Pulse 93 95 97 Oximetry O2 Sat by Pulse Oximetry [ Assessment] 11/05/20 11/05/20 11/05/20 07:00 07:30 08:00 Temperature Pulse Rate 74 77 77 Pulse Rate [ Anterior Bilateral Throughout] Pulse Rate [ Anterior Right Throughout] Pulse Rate [ 78 From Monitor] Respiratory 20 22 24 Rate Respiratory Rate [Anterior Bilateral Throughout] Respiratory Rate [Anterior Right Throughout] Blood Pressure 157/85 146/70 145/77 O2 Sat by Pulse 100 97 97 Oximetry O2 Sat by Pulse Oximetry [ Assessment] 11/05/20 11/05/20 11/05/20 08:30 08:35 08:45 Temperature Pulse Rate 81 82 81 Pulse Rate [ Anterior Bilateral Throughout] Pulse Rate [ Anterior Right Throughout] Pulse Rate [ From Monitor] Respiratory 21 Rate Respiratory Rate [Anterior Bilateral Throughout] Respiratory Rate [Anterior Right Throughout] Blood Pressure 151/73 134/86 151/73 O2 Sat by Pulse 95 100 Oximetry O2 Sat by Pulse 100 Oximetry [ Assessment] 11/05/20 11/05/20 11/05/20 08:53 09:00 09:30 Temperature Pulse Rate 80 81 Pulse Rate [ 81 Anterior Bilateral Throughout] Pulse Rate [ Anterior Right Throughout] Pulse Rate [ From Monitor] Respiratory 15 14 Rate Respiratory 21 Rate [Anterior Bilateral Throughout] Respiratory Rate [Anterior Right Throughout] Blood Pressure 134/86 138/84 O2 Sat by Pulse 100 100 95 Oximetry O2 Sat by Pulse Oximetry [ Assessment] 11/05/20 11/05/20 11/05/20 09:36 10:00 10:30 Temperature Pulse Rate 81 79 73 Pulse Rate [ Anterior Bilateral Throughout] Pulse Rate [ Anterior Right Throughout] Pulse Rate [ From Monitor] Respiratory 21 19 Rate Respiratory Rate [Anterior Bilateral Throughout] Respiratory Rate [Anterior Right Throughout] Blood Pressure 138/84 129/72 143/91 O2 Sat by Pulse 95 97 Oximetry O2 Sat by Pulse Oximetry [ Assessment] 11/05/20 11/05/20 11/05/20 11:00 11:30 11:50 Temperature Pulse Rate 70 76 74 Pulse Rate [ Anterior Bilateral Throughout] Pulse Rate [ Anterior Right Throughout] Pulse Rate [ From Monitor] Respiratory 17 24 25 H Rate Respiratory Rate [Anterior Bilateral Throughout] Respiratory Rate [Anterior Right Throughout] Blood Pressure 120/61 120/61 125/70 O2 Sat by Pulse 94 98 95 Oximetry O2 Sat by Pulse Oximetry [ Assessment] 11/05/20 12:00 Temperature 99.1 F Pulse Rate 71 Pulse Rate [ Anterior Bilateral Throughout] Pulse Rate [ Anterior Right Throughout] Pulse Rate [ 70 From Monitor] Respiratory 19 Rate Respiratory Rate [Anterior Bilateral Throughout] Respiratory Rate [Anterior Right Throughout] Blood Pressure 143/72 O2 Sat by Pulse 95 Oximetry O2 Sat by Pulse Oximetry [ Assessment] Constitutional: appears uncomfortable, other (middle aged obese male with mildly increased respiratory efort at rest) Eyes: non-icteric ENT: oropharynx moist, oropharyngeal exudate pre (thick), other (midline tracheostomy) Neck: supple, no lymphadenopathy, no JVD Effort: mildly labored Ascultation: Bilateral: diminished breath sounds, rhonchi (scant) Percussion: Bilateral: not dull Cardiovascular: regular rate and rhythm, other (S1,S2) Gastrointestinal: normoactive bowel sounds, soft, non-tender, non-distended (protuberant) Integumentary: normal Extremities: no cyanosis, no edema, pulses normal, no ischemia or petechiae Neurologic: pupils equal and round, unable to assess, other (encephalopathic) Psychiatric: other (unable to assess re: AMS) CBC and BMP: 11/05/20 03:30 11/05/20 03:30 ABG, PT/INR, D-dimer: ABG ABG pH 7.511 (7.320-7.450) H 11/04/20 21:18 POC ABG pCO2 49.0 mmHg (32.0-48.0) H 11/04/20 21:18 ABG pCO2 55.5 mm Hg 10/16/20 05:10 POC ABG pO2 88.5 mmHg (83-108) 11/04/20 21:18 ABG pO2 104.5 mm Hg (80.0-90.0) H 10/16/20 05:10 POC ABG HCO3 38.3 11/04/20 21:18 ABG O2 Saturation 96.9 (0-100) 11/04/20 21:18 PT/INR, D-dimer PT 13.5 Sec. (12.2-14.9) 10/28/20 07:00 INR 1.05 (0.87-1.13) 10/28/20 07:00 D-Dimer 679.5 ng/mlDDU (0-234) H 10/10/20 10:48 Abnormal lab findings: Abnormal Labs 10/10/20 10/10/20 10/10/20 10:46 10:46 10:46 WBC RBC Hgb Hct RDW Lymph % (Auto) [place] % (Auto) Lymph # (Auto) [place] # (Auto) Seg Neutrophils % Lymphocytes % (Manual) Monocytes % (Manual) Seg Neutrophils # Seg Neutrophils # Man Lymphocytes # (Manual) Monocytes # (Manual) D-Dimer Heparin Anti-Xa Level ABG pH POC ABG pCO2 POC ABG pO2 ABG pO2 ABG HCO3 ABG O2 Saturation ABG Base Excess ABG Hemoglobin ABG Oxyhemoglobin ABG Sodium ABG Potassium ABG Chloride ABG Glucose VBG pH Oxyhemoglobin Carboxyhemoglobin Sodium Potassium Chloride Carbon Dioxide BUN Creatinine Glucose POC Glucose Lactic Acid 13.60 H* Calcium Phosphorus Magnesium Total Bilirubin AST ALT Ammonia 214.0 H Lactate Dehydrogenase Total Creatine Kinase CK-MB (CK-2) Troponin T NT-Pro-B Natriuret Pep Total Protein Albumin Triglycerides TSH 6.260 H Arterial Blood Glucose Arterial Blood Ionized Calcium Urine pH Urine WBC (Auto) Urine Creatinine 10/10/20 10/10/20 10/10/20 10:46 10:48 10:48 WBC RBC 5.28 H Hgb 15.5 H Hct 48.8 H RDW Lymph % (Auto) [place] % (Auto) Lymph # (Auto) [place] # (Auto) Seg Neutrophils % Lymphocytes % (Manual) 42.0 H Monocytes % (Manual) Seg Neutrophils # Seg Neutrophils # Man Lymphocytes # (Manual) Monocytes # (Manual) D-Dimer Heparin Anti-Xa Level ABG pH POC ABG pCO2 POC ABG pO2 ABG pO2 ABG HCO3 ABG O2 Saturation ABG Base Excess ABG Hemoglobin ABG Oxyhemoglobin ABG Sodium ABG Potassium ABG Chloride ABG Glucose VBG pH Oxyhemoglobin Carboxyhemoglobin Sodium Potassium 3.3 L Chloride 91.2 L Carbon Dioxide BUN Creatinine 1.8 H Glucose 231 H POC Glucose Lactic Acid Calcium Phosphorus Magnesium Total Bilirubin AST 60 H ALT 57 H Ammonia Lactate Dehydrogenase Total Creatine Kinase CK-MB (CK-2) Troponin T NT-Pro-B Natriuret Pep 1187 H Total Protein 9.0 H Albumin Triglycerides TSH Arterial Blood Glucose Arterial Blood Ionized Calcium Urine pH Urine WBC (Auto) Urine Creatinine 10/10/20 10/10/20 10/10/20 10:48 10:48 10:48 WBC RBC Hgb Hct RDW Lymph % (Auto) [place] % (Auto) Lymph # (Auto) [place] # (Auto) Seg Neutrophils % Lymphocytes % (Manual) Monocytes % (Manual) Seg Neutrophils # Seg Neutrophils # Man Lymphocytes # (Manual) Monocytes # (Manual) D-Dimer 679.5 H Heparin Anti-Xa Level ABG pH POC ABG pCO2 POC ABG pO2 ABG pO2 ABG HCO3 ABG O2 Saturation ABG Base Excess ABG Hemoglobin ABG Oxyhemoglobin ABG Sodium ABG Potassium ABG Chloride ABG Glucose VBG pH 6.870 L* Oxyhemoglobin Carboxyhemoglobin Sodium Potassium Chloride Carbon Dioxide BUN Creatinine Glucose POC Glucose Lactic Acid Calcium Phosphorus Magnesium Total Bilirubin AST ALT Ammonia Lactate Dehydrogenase 386 H Total Creatine Kinase CK-MB (CK-2) Troponin T NT-Pro-B Natriuret Pep Total Protein Albumin Triglycerides TSH Arterial Blood Glucose Arterial Blood Ionized Calcium Urine pH Urine WBC (Auto) Urine Creatinine 10/10/20 10/10/20 10/10/20 14:10 14:20 15:50 WBC RBC Hgb Hct RDW Lymph % (Auto) [place] % (Auto) Lymph # (Auto) [place] # (Auto) Seg Neutrophils % Lymphocytes % (Manual) Monocytes % (Manual) Seg Neutrophils # Seg Neutrophils # Man Lymphocytes # (Manual) Monocytes # (Manual) D-Dimer Heparin Anti-Xa Level ABG pH 7.175 L 7.247 L POC ABG pCO2 85.0 H POC ABG pO2 43.7 L ABG pO2 60.3 L ABG HCO3 32.0 H ABG O2 Saturation 86.1 L ABG Base Excess ABG Hemoglobin ABG Oxyhemoglobin 67.7 L ABG Sodium ABG Potassium ABG Chloride ABG Glucose 247 H VBG pH Oxyhemoglobin 84.4 L Carboxyhemoglobin Sodium Potassium Chloride Carbon Dioxide BUN Creatinine Glucose POC Glucose Lactic Acid 4.00 H* Calcium Phosphorus Magnesium Total Bilirubin AST ALT Ammonia Lactate Dehydrogenase Total Creatine Kinase CK-MB (CK-2) Troponin T NT-Pro-B Natriuret Pep Total Protein Albumin Triglycerides TSH Arterial Blood Glucose 247 H Arterial Blood Ionized Calcium 4.4 L Urine pH Urine WBC (Auto) Urine Creatinine 10/10/20 10/10/20 10/10/20 15:50 16:22 18:18 WBC RBC Hgb Hct RDW Lymph % (Auto) [place] % (Auto) Lymph # (Auto) [place] # (Auto) Seg Neutrophils % Lymphocytes % (Manual) Monocytes % (Manual) Seg Neutrophils # Seg Neutrophils # Man Lymphocytes # (Manual) Monocytes # (Manual) D-Dimer Heparin Anti-Xa Level ABG pH 7.171 L POC ABG pCO2 96.6 H POC ABG pO2 55.3 L ABG pO2 ABG HCO3 ABG O2 Saturation ABG Base Excess ABG Hemoglobin ABG Oxyhemoglobin 81.4 L ABG Sodium ABG Potassium ABG Chloride ABG Glucose 115 H VBG pH Oxyhemoglobin Carboxyhemoglobin Sodium Potassium Chloride Carbon Dioxide BUN Creatinine Glucose POC Glucose 132 H Lactic Acid Calcium Phosphorus Magnesium Total Bilirubin AST ALT Ammonia Lactate Dehydrogenase Total Creatine Kinase 1192 H CK-MB (CK-2) 21.7 H Troponin T 0.377 H* D NT-Pro-B Natriuret Pep Total Protein Albumin Triglycerides TSH Arterial Blood Glucose 115 H Arterial Blood Ionized Calcium Urine pH Urine WBC (Auto) Urine Creatinine 10/10/20 10/10/20 10/10/20 18:18 18:18 22:49 WBC 23.0 H RBC 5.12 H Hgb Hct RDW Lymph % (Auto) [place] % (Auto) Lymph # (Auto) [place] # (Auto) Seg Neutrophils % Lymphocytes % (Manual) 4.0 L Monocytes % (Manual) 9.0 H Seg Neutrophils # Seg Neutrophils # Man 13.8 H Lymphocytes # (Manual) 0.9 L Monocytes # (Manual) 2.1 H D-Dimer Heparin Anti-Xa Level ABG pH POC ABG pCO2 POC ABG pO2 ABG pO2 ABG HCO3 ABG O2 Saturation ABG Base Excess ABG Hemoglobin ABG Oxyhemoglobin ABG Sodium ABG Potassium ABG Chloride ABG Glucose VBG pH Oxyhemoglobin Carboxyhemoglobin Sodium 146 H Potassium Chloride Carbon Dioxide 34 H D BUN 27 H Creatinine 2.7 H Glucose 102 H POC Glucose Lactic Acid Calcium Phosphorus Magnesium Total Bilirubin AST 90 H ALT 66 H Ammonia Lactate Dehydrogenase Total Creatine Kinase CK-MB (CK-2) Troponin T 0.273 H* D NT-Pro-B Natriuret Pep Total Protein Albumin Triglycerides TSH Arterial Blood Glucose Arterial Blood Ionized Calcium Urine pH Urine WBC (Auto) Urine Creatinine 10/11/20 10/11/20 10/11/20 02:00 02:00 02:00 WBC 17.3 H RBC Hgb Hct RDW Lymph % (Auto) 3.9 L [place] % (Auto) Lymph # (Auto) 0.7 L [place] # (Auto) Seg Neutrophils % 93.0 H Lymphocytes % (Manual) Monocytes % (Manual) Seg Neutrophils # 16.1 H Seg Neutrophils # Man Lymphocytes # (Manual) Monocytes # (Manual) D-Dimer Heparin Anti-Xa Level ABG pH POC ABG pCO2 POC ABG pO2 ABG pO2 ABG HCO3 ABG O2 Saturation ABG Base Excess ABG Hemoglobin ABG Oxyhemoglobin ABG Sodium ABG Potassium ABG Chloride ABG Glucose VBG pH Oxyhemoglobin Carboxyhemoglobin Sodium 149 H Potassium 3.3 L Chloride 95.3 L Carbon Dioxide 37 H BUN 29 H Creatinine 2.6 H Glucose POC Glucose Lactic Acid Calcium Phosphorus Magnesium Total Bilirubin AST 80 H ALT 59 H Ammonia Lactate Dehydrogenase Total Creatine Kinase CK-MB (CK-2) Troponin T 0.201 H* D NT-Pro-B Natriuret Pep Total Protein Albumin 3.6 L Triglycerides TSH Arterial Blood Glucose Arterial Blood Ionized Calcium Urine pH Urine WBC (Auto) Urine Creatinine 10/11/20 10/11/20 10/11/20 03:51 08:35 11:15 WBC RBC Hgb Hct RDW Lymph % (Auto) [place] % (Auto) Lymph # (Auto) [place] # (Auto) Seg Neutrophils % Lymphocytes % (Manual) Monocytes % (Manual) Seg Neutrophils # Seg Neutrophils # Man Lymphocytes # (Manual) Monocytes # (Manual) D-Dimer Heparin Anti-Xa Level 0.22 L ABG pH 7.491 H POC ABG pCO2 57.6 H POC ABG pO2 ABG pO2 ABG HCO3 ABG O2 Saturation ABG Base Excess ABG Hemoglobin ABG Oxyhemoglobin ABG Sodium 150.0 H ABG Potassium 3.1 L ABG Chloride 96.0 L ABG Glucose 122 H VBG pH Oxyhemoglobin Carboxyhemoglobin Sodium Potassium Chloride Carbon Dioxide BUN Creatinine Glucose POC Glucose 151 H Lactic Acid Calcium Phosphorus Magnesium Total Bilirubin AST ALT Ammonia Lactate Dehydrogenase Total Creatine Kinase CK-MB (CK-2) Troponin T NT-Pro-B Natriuret Pep Total Protein Albumin Triglycerides TSH Arterial Blood Glucose 122 H Arterial Blood Ionized Calcium 3.9 L Urine pH Urine WBC (Auto) Urine Creatinine 10/11/20 10/11/20 10/11/20 13:30 13:30 13:30 WBC 15.0 H RBC Hgb Hct RDW Lymph % (Auto) [place] % (Auto) Lymph # (Auto) [place] # (Auto) Seg Neutrophils % Lymphocytes % (Manual) Monocytes % (Manual) Seg Neutrophils # Seg Neutrophils # Man Lymphocytes # (Manual) Monocytes # (Manual) D-Dimer Heparin Anti-Xa Level ABG pH POC ABG pCO2 POC ABG pO2 ABG pO2 ABG HCO3 ABG O2 Saturation ABG Base Excess ABG Hemoglobin ABG Oxyhemoglobin ABG Sodium ABG Potassium ABG Chloride ABG Glucose VBG pH Oxyhemoglobin Carboxyhemoglobin Sodium Potassium Chloride Carbon Dioxide BUN Creatinine Glucose POC Glucose Lactic Acid Calcium Phosphorus Magnesium Total Bilirubin AST ALT Ammonia Lactate Dehydrogenase Total Creatine Kinase CK-MB (CK-2) Troponin T NT-Pro-B Natriuret Pep Total Protein Albumin Triglycerides TSH Arterial Blood Glucose Arterial Blood Ionized Calcium Urine pH 9.0 H Urine WBC (Auto) 18.0 H Urine Creatinine 80.5 H 10/11/20 10/11/20 10/12/20 17:17 23:14 03:53 WBC RBC Hgb Hct RDW Lymph % (Auto) [place] % (Auto) Lymph # (Auto) [place] # (Auto) Seg Neutrophils % Lymphocytes % (Manual) Monocytes % (Manual) Seg Neutrophils # Seg Neutrophils # Man Lymphocytes # (Manual) Monocytes # (Manual) D-Dimer Heparin Anti-Xa Level ABG pH 7.545 H POC ABG pCO2 54.6 H POC ABG pO2 231.9 H ABG pO2 ABG HCO3 ABG O2 Saturation ABG Base Excess ABG Hemoglobin ABG Oxyhemoglobin 98.5 H ABG Sodium 150.5 H ABG Potassium 3.2 L ABG Chloride 96.0 L ABG Glucose 148 H VBG pH Oxyhemoglobin Carboxyhemoglobin Sodium Potassium Chloride Carbon Dioxide BUN Creatinine Glucose POC Glucose 121 H 135 H Lactic Acid Calcium Phosphorus Magnesium Total Bilirubin AST ALT Ammonia Lactate Dehydrogenase Total Creatine Kinase CK-MB (CK-2) Troponin T NT-Pro-B Natriuret Pep Total Protein Albumin Triglycerides TSH Arterial Blood Glucose 148 H Arterial Blood Ionized Calcium 3.8 L Urine pH Urine WBC (Auto) Urine Creatinine 10/12/20 10/12/20 10/12/20 04:00 05:10 05:12 WBC 14.3 H RBC Hgb 11.6 L Hct 35.2 L RDW Lymph % (Auto) [place] % (Auto) Lymph # (Auto) [place] # (Auto) Seg Neutrophils % Lymphocytes % (Manual) Monocytes % (Manual) Seg Neutrophils # Seg Neutrophils # Man Lymphocytes # (Manual) Monocytes # (Manual) D-Dimer Heparin Anti-Xa Level ABG pH POC ABG pCO2 POC ABG pO2 ABG pO2 ABG HCO3 ABG O2 Saturation ABG Base Excess ABG Hemoglobin ABG Oxyhemoglobin ABG Sodium ABG Potassium ABG Chloride ABG Glucose VBG pH Oxyhemoglobin Carboxyhemoglobin Sodium 155 H Potassium 3.3 L Chloride 97.9 L Carbon Dioxide 47 H* D BUN 50 H Creatinine 3.4 H Glucose 146 H POC Glucose 137 H Lactic Acid Calcium 8.0 L Phosphorus Magnesium Total Bilirubin AST ALT Ammonia Lactate Dehydrogenase Total Creatine Kinase CK-MB (CK-2) Troponin T 0.125 H* D NT-Pro-B Natriuret Pep Total Protein Albumin Triglycerides TSH Arterial Blood Glucose Arterial Blood Ionized Calcium Urine pH Urine WBC (Auto) Urine Creatinine 10/12/20 10/12/20 10/12/20 11:39 16:01 19:49 WBC RBC Hgb Hct RDW Lymph % (Auto) [place] % (Auto) Lymph # (Auto) [place] # (Auto) Seg Neutrophils % Lymphocytes % (Manual) Monocytes % (Manual) Seg Neutrophils # Seg Neutrophils # Man Lymphocytes # (Manual) Monocytes # (Manual) D-Dimer Heparin Anti-Xa Level ABG pH POC ABG pCO2 POC ABG pO2 ABG pO2 ABG HCO3 ABG O2 Saturation ABG Base Excess ABG Hemoglobin ABG Oxyhemoglobin ABG Sodium ABG Potassium ABG Chloride ABG Glucose VBG pH Oxyhemoglobin Carboxyhemoglobin Sodium 157 H Potassium 3.3 L Chloride Carbon Dioxide 47 H* BUN 52 H Creatinine 3.0 H Glucose 137 H POC Glucose 138 H 119 H Lactic Acid Calcium 8.0 L Phosphorus Magnesium Total Bilirubin AST ALT Ammonia Lactate Dehydrogenase Total Creatine Kinase CK-MB (CK-2) Troponin T NT-Pro-B Natriuret Pep Total Protein Albumin Triglycerides TSH Arterial Blood Glucose Arterial Blood Ionized Calcium Urine pH Urine WBC (Auto) Urine Creatinine 10/12/20 10/13/20 10/13/20 23:37 02:28 04:52 WBC RBC Hgb Hct RDW Lymph % (Auto) [place] % (Auto) Lymph # (Auto) [place] # (Auto) Seg Neutrophils % Lymphocytes % (Manual) Monocytes % (Manual) Seg Neutrophils # Seg Neutrophils # Man Lymphocytes # (Manual) Monocytes # (Manual) D-Dimer Heparin Anti-Xa Level ABG pH 7.485 H POC ABG pCO2 57.1 H POC ABG pO2 ABG pO2 ABG HCO3 ABG O2 Saturation ABG Base Excess ABG Hemoglobin ABG Oxyhemoglobin ABG Sodium 152.4 H ABG Potassium ABG Chloride ABG Glucose 129 H VBG pH Oxyhemoglobin Carboxyhemoglobin Sodium 155 H Potassium Chloride Carbon Dioxide 45 H* BUN 52 H Creatinine 2.7 H Glucose 121 H POC Glucose 131 H Lactic Acid Calcium Phosphorus Magnesium 2.40 H Total Bilirubin AST ALT Ammonia Lactate Dehydrogenase Total Creatine Kinase CK-MB (CK-2) Troponin T NT-Pro-B Natriuret Pep Total Protein Albumin Triglycerides 278 H TSH Arterial Blood Glucose 129 H Arterial Blood Ionized Calcium 4.1 L Urine pH Urine WBC (Auto) Urine Creatinine 10/13/20 10/13/20 10/13/20 04:52 05:13 11:37 WBC 14.7 H RBC Hgb 11.7 L Hct RDW 15.8 H Lymph % (Auto) [place] % (Auto) Lymph # (Auto) [place] # (Auto) Seg Neutrophils % Lymphocytes % (Manual) Monocytes % (Manual) Seg Neutrophils # Seg Neutrophils # Man Lymphocytes # (Manual) Monocytes # (Manual) D-Dimer Heparin Anti-Xa Level ABG pH POC ABG pCO2 POC ABG pO2 ABG pO2 ABG HCO3 ABG O2 Saturation ABG Base Excess ABG Hemoglobin ABG Oxyhemoglobin ABG Sodium ABG Potassium ABG Chloride ABG Glucose VBG pH Oxyhemoglobin Carboxyhemoglobin Sodium Potassium Chloride Carbon Dioxide BUN Creatinine Glucose POC Glucose 116 H 116 H Lactic Acid Calcium Phosphorus Magnesium Total Bilirubin AST ALT Ammonia Lactate Dehydrogenase Total Creatine Kinase CK-MB (CK-2) Troponin T NT-Pro-B Natriuret Pep Total Protein Albumin Triglycerides TSH Arterial Blood Glucose Arterial Blood Ionized Calcium Urine pH Urine WBC (Auto) Urine Creatinine 10/13/20 10/14/20 10/14/20 17:50 03:45 04:46 WBC 11.1 H RBC Hgb Hct RDW 15.3 H Lymph % (Auto) [place] % (Auto) Lymph # (Auto) [place] # (Auto) Seg Neutrophils % Lymphocytes % (Manual) Monocytes % (Manual) Seg Neutrophils # Seg Neutrophils # Man Lymphocytes # (Manual) Monocytes # (Manual) D-Dimer Heparin Anti-Xa Level ABG pH POC ABG pCO2 59.6 H POC ABG pO2 ABG pO2 ABG HCO3 ABG O2 Saturation ABG Base Excess ABG Hemoglobin ABG Oxyhemoglobin ABG Sodium 151.4 H ABG Potassium 3.3 L ABG Chloride ABG Glucose 138 H VBG pH Oxyhemoglobin Carboxyhemoglobin 1.6 H Sodium Potassium Chloride Carbon Dioxide BUN Creatinine Glucose POC Glucose 140 H Lactic Acid Calcium Phosphorus Magnesium Total Bilirubin AST ALT Ammonia Lactate Dehydrogenase Total Creatine Kinase CK-MB (CK-2) Troponin T NT-Pro-B Natriuret Pep Total Protein Albumin Triglycerides TSH Arterial Blood Glucose 138 H Arterial Blood Ionized Calcium 4.5 L Urine pH Urine WBC (Auto) Urine Creatinine 10/14/20 10/14/20 10/14/20 04:46 05:10 11:11 WBC RBC Hgb Hct RDW Lymph % (Auto) [place] % (Auto) Lymph # (Auto) [place] # (Auto) Seg Neutrophils % Lymphocytes % (Manual) Monocytes % (Manual) Seg Neutrophils # Seg Neutrophils # Man Lymphocytes # (Manual) Monocytes # (Manual) D-Dimer Heparin Anti-Xa Level ABG pH POC ABG pCO2 POC ABG pO2 ABG pO2 ABG HCO3 ABG O2 Saturation ABG Base Excess ABG Hemoglobin ABG Oxyhemoglobin ABG Sodium ABG Potassium ABG Chloride ABG Glucose VBG pH Oxyhemoglobin Carboxyhemoglobin Sodium 152 H Potassium 3.5 L Chloride Carbon Dioxide 38 H D BUN 46 H Creatinine 2.3 H Glucose 127 H POC Glucose 116 H 114 H Lactic Acid Calcium Phosphorus Magnesium Total Bilirubin AST ALT Ammonia Lactate Dehydrogenase Total Creatine Kinase CK-MB (CK-2) Troponin T NT-Pro-B Natriuret Pep Total Protein Albumin Triglycerides TSH Arterial Blood Glucose Arterial Blood Ionized Calcium Urine pH Urine WBC (Auto) Urine Creatinine 10/14/20 10/14/20 10/15/20 18:53 23:23 04:12 WBC RBC Hgb Hct RDW Lymph % (Auto) [place] % (Auto) Lymph # (Auto) [place] # (Auto) Seg Neutrophils % Lymphocytes % (Manual) Monocytes % (Manual) Seg Neutrophils # Seg Neutrophils # Man Lymphocytes # (Manual) Monocytes # (Manual) D-Dimer Heparin Anti-Xa Level ABG pH POC ABG pCO2 POC ABG pO2 ABG pO2 ABG HCO3 ABG O2 Saturation ABG Base Excess ABG Hemoglobin ABG Oxyhemoglobin ABG Sodium ABG Potassium ABG Chloride ABG Glucose VBG pH Oxyhemoglobin Carboxyhemoglobin Sodium 149 H Potassium 3.2 L Chloride Carbon Dioxide 37 H BUN 40 H Creatinine 2.0 H Glucose 124 H POC Glucose 128 H 113 H Lactic Acid Calcium Phosphorus Magnesium Total Bilirubin AST ALT Ammonia Lactate Dehydrogenase Total Creatine Kinase CK-MB (CK-2) Troponin T NT-Pro-B Natriuret Pep Total Protein Albumin Triglycerides TSH Arterial Blood Glucose Arterial Blood Ionized Calcium Urine pH Urine WBC (Auto) Urine Creatinine 10/15/20 10/15/20 10/15/20 04:22 11:39 17:36 WBC RBC Hgb Hct RDW Lymph % (Auto) [place] % (Auto) Lymph # (Auto) [place] # (Auto) Seg Neutrophils % Lymphocytes % (Manual) Monocytes % (Manual) Seg Neutrophils # Seg Neutrophils # Man Lymphocytes # (Manual) Monocytes # (Manual) D-Dimer Heparin Anti-Xa Level ABG pH POC ABG pCO2 POC ABG pO2 ABG pO2 115.0 H ABG HCO3 38.1 H ABG O2 Saturation ABG Base Excess 11.3 H ABG Hemoglobin 11.0 L ABG Oxyhemoglobin ABG Sodium ABG Potassium ABG Chloride ABG Glucose VBG pH Oxyhemoglobin Carboxyhemoglobin Sodium Potassium Chloride Carbon Dioxide BUN Creatinine Glucose POC Glucose 123 H 118 H Lactic Acid Calcium Phosphorus Magnesium Total Bilirubin AST ALT Ammonia Lactate Dehydrogenase Total Creatine Kinase CK-MB (CK-2) Troponin T NT-Pro-B Natriuret Pep Total Protein Albumin Triglycerides TSH Arterial Blood Glucose Arterial Blood Ionized Calcium Urine pH Urine WBC (Auto) Urine Creatinine 10/15/20 10/16/20 10/16/20 23:18 03:13 05:10 WBC RBC Hgb Hct RDW Lymph % (Auto) [place] % (Auto) Lymph # (Auto) [place] # (Auto) Seg Neutrophils % Lymphocytes % (Manual) Monocytes % (Manual) Seg Neutrophils # Seg Neutrophils # Man Lymphocytes # (Manual) Monocytes # (Manual) D-Dimer Heparin Anti-Xa Level ABG pH POC ABG pCO2 POC ABG pO2 ABG pO2 104.5 H ABG HCO3 35.1 H ABG O2 Saturation ABG Base Excess 9.5 H ABG Hemoglobin 7.9 L ABG Oxyhemoglobin ABG Sodium ABG Potassium ABG Chloride ABG Glucose VBG pH Oxyhemoglobin Carboxyhemoglobin Sodium Potassium 3.3 L Chloride Carbon Dioxide 33 H BUN 37 H Creatinine 1.4 H Glucose 148 H POC Glucose 135 H Lactic Acid Calcium Phosphorus Magnesium 2.40 H Total Bilirubin AST ALT Ammonia Lactate Dehydrogenase Total Creatine Kinase CK-MB (CK-2) Troponin T NT-Pro-B Natriuret Pep Total Protein Albumin Triglycerides TSH Arterial Blood Glucose Arterial Blood Ionized Calcium Urine pH Urine WBC (Auto) Urine Creatinine 10/16/20 10/16/20 10/16/20 06:36 11:08 17:07 WBC RBC Hgb Hct RDW Lymph % (Auto) [place] % (Auto) Lymph # (Auto) [place] # (Auto) Seg Neutrophils % Lymphocytes % (Manual) Monocytes % (Manual) Seg Neutrophils # Seg Neutrophils # Man Lymphocytes # (Manual) Monocytes # (Manual) D-Dimer Heparin Anti-Xa Level ABG pH POC ABG pCO2 POC ABG pO2 ABG pO2 ABG HCO3 ABG O2 Saturation ABG Base Excess ABG Hemoglobin ABG Oxyhemoglobin ABG Sodium ABG Potassium ABG Chloride ABG Glucose VBG pH Oxyhemoglobin Carboxyhemoglobin Sodium Potassium Chloride Carbon Dioxide BUN Creatinine Glucose POC Glucose 150 H 111 H 132 H Lactic Acid Calcium Phosphorus Magnesium Total Bilirubin AST ALT Ammonia Lactate Dehydrogenase Total Creatine Kinase CK-MB (CK-2) Troponin T NT-Pro-B Natriuret Pep Total Protein Albumin Triglycerides TSH Arterial Blood Glucose Arterial Blood Ionized Calcium Urine pH Urine WBC (Auto) Urine Creatinine 10/16/20 10/17/20 10/17/20 23:38 03:32 03:32 WBC RBC Hgb Hct RDW Lymph % (Auto) [place] % (Auto) Lymph # (Auto) [place] # (Auto) Seg Neutrophils % Lymphocytes % (Manual) Monocytes % (Manual) Seg Neutrophils # Seg Neutrophils # Man Lymphocytes # (Manual) Monocytes # (Manual) D-Dimer Heparin Anti-Xa Level ABG pH POC ABG pCO2 POC ABG pO2 ABG pO2 ABG HCO3 ABG O2 Saturation ABG Base Excess ABG Hemoglobin ABG Oxyhemoglobin ABG Sodium ABG Potassium ABG Chloride ABG Glucose VBG pH Oxyhemoglobin Carboxyhemoglobin Sodium 146 H Potassium Chloride Carbon Dioxide 32 H BUN 57 H Creatinine 2.4 H D Glucose 124 H POC Glucose 117 H Lactic Acid Calcium Phosphorus 5.20 H D Magnesium Total Bilirubin AST ALT Ammonia Lactate Dehydrogenase Total Creatine Kinase CK-MB (CK-2) Troponin T NT-Pro-B Natriuret Pep Total Protein Albumin Triglycerides TSH Arterial Blood Glucose Arterial Blood Ionized Calcium Urine pH Urine WBC (Auto) Urine Creatinine 10/17/20 10/17/20 10/18/20 05:10 17:33 00:13 WBC RBC Hgb Hct RDW Lymph % (Auto) [place] % (Auto) Lymph # (Auto) [place] # (Auto) Seg Neutrophils % Lymphocytes % (Manual) Monocytes % (Manual) Seg Neutrophils # Seg Neutrophils # Man Lymphocytes # (Manual) Monocytes # (Manual) D-Dimer Heparin Anti-Xa Level ABG pH POC ABG pCO2 POC ABG pO2 ABG pO2 ABG HCO3 ABG O2 Saturation ABG Base Excess ABG Hemoglobin ABG Oxyhemoglobin ABG Sodium ABG Potassium ABG Chloride ABG Glucose VBG pH Oxyhemoglobin Carboxyhemoglobin Sodium Potassium Chloride Carbon Dioxide BUN Creatinine Glucose POC Glucose 122 H 121 H 23 L Lactic Acid Calcium Phosphorus Magnesium Total Bilirubin AST ALT Ammonia Lactate Dehydrogenase Total Creatine Kinase CK-MB (CK-2) Troponin T NT-Pro-B Natriuret Pep Total Protein Albumin Triglycerides TSH Arterial Blood Glucose Arterial Blood Ionized Calcium Urine pH Urine WBC (Auto) Urine Creatinine 10/18/20 10/18/20 10/18/20 00:16 03:27 03:27 WBC RBC Hgb 11.7 L Hct RDW Lymph % (Auto) [place] % (Auto) Lymph # (Auto) [place] # (Auto) Seg Neutrophils % Lymphocytes % (Manual) Monocytes % (Manual) Seg Neutrophils # Seg Neutrophils # Man Lymphocytes # (Manual) Monocytes # (Manual) D-Dimer Heparin Anti-Xa Level ABG pH POC ABG pCO2 POC ABG pO2 ABG pO2 ABG HCO3 ABG O2 Saturation ABG Base Excess ABG Hemoglobin ABG Oxyhemoglobin ABG Sodium ABG Potassium ABG Chloride ABG Glucose VBG pH Oxyhemoglobin Carboxyhemoglobin Sodium Potassium Chloride 97.6 L Carbon Dioxide BUN 90 H Creatinine 3.3 H Glucose 146 H POC Glucose 134 H Lactic Acid Calcium Phosphorus Magnesium Total Bilirubin 1.70 H AST ALT Ammonia Lactate Dehydrogenase Total Creatine Kinase CK-MB (CK-2) Troponin T NT-Pro-B Natriuret Pep Total Protein Albumin 3.1 L Triglycerides TSH Arterial Blood Glucose Arterial Blood Ionized Calcium Urine pH Urine WBC (Auto) Urine Creatinine 10/18/20 10/18/20 10/18/20 05:09 11:19 17:15 WBC RBC Hgb Hct RDW Lymph % (Auto) [place] % (Auto) Lymph # (Auto) [place] # (Auto) Seg Neutrophils % Lymphocytes % (Manual) Monocytes % (Manual) Seg Neutrophils # Seg Neutrophils # Man Lymphocytes # (Manual) Monocytes # (Manual) D-Dimer Heparin Anti-Xa Level ABG pH POC ABG pCO2 POC ABG pO2 ABG pO2 ABG HCO3 ABG O2 Saturation ABG Base Excess ABG Hemoglobin ABG Oxyhemoglobin ABG Sodium ABG Potassium ABG Chloride ABG Glucose VBG pH Oxyhemoglobin Carboxyhemoglobin Sodium Potassium Chloride Carbon Dioxide BUN Creatinine Glucose POC Glucose 144 H 145 H 151 H Lactic Acid Calcium Phosphorus Magnesium Total Bilirubin AST ALT Ammonia Lactate Dehydrogenase Total Creatine Kinase CK-MB (CK-2) Troponin T NT-Pro-B Natriuret Pep Total Protein Albumin Triglycerides TSH Arterial Blood Glucose Arterial Blood Ionized Calcium Urine pH Urine WBC (Auto) Urine Creatinine 10/18/20 10/18/20 10/19/20 23:16 Unknown 04:55 WBC RBC Hgb Hct RDW Lymph % (Auto) [place] % (Auto) Lymph # (Auto) [place] # (Auto) Seg Neutrophils % Lymphocytes % (Manual) Monocytes % (Manual) Seg Neutrophils # Seg Neutrophils # Man Lymphocytes # (Manual) Monocytes # (Manual) D-Dimer Heparin Anti-Xa Level ABG pH POC ABG pCO2 POC ABG pO2 ABG pO2 ABG HCO3 ABG O2 Saturation ABG Base Excess ABG Hemoglobin ABG Oxyhemoglobin ABG Sodium ABG Potassium ABG Chloride ABG Glucose VBG pH Oxyhemoglobin Carboxyhemoglobin Sodium Potassium Chloride Carbon Dioxide BUN 104 H Creatinine 3.1 H Glucose 139 H POC Glucose 123 H Lactic Acid Calcium Phosphorus Magnesium Total Bilirubin AST ALT Ammonia Lactate Dehydrogenase Total Creatine Kinase CK-MB (CK-2) Troponin T NT-Pro-B Natriuret Pep Total Protein Albumin Triglycerides TSH Arterial Blood Glucose Arterial Blood Ionized Calcium Urine pH Urine WBC (Auto) 115.0 H Urine Creatinine 10/19/20 10/19/20 10/19/20 04:55 11:35 13:14 WBC 15.1 H RBC Hgb 11.1 L Hct 34.4 L RDW Lymph % (Auto) 4.2 L [place] % (Auto) 11.9 H Lymph # (Auto) 0.6 L [place] # (Auto) 1.8 H Seg Neutrophils % 82.0 H Lymphocytes % (Manual) Monocytes % (Manual) Seg Neutrophils # 12.4 H Seg Neutrophils # Man Lymphocytes # (Manual) Monocytes # (Manual) D-Dimer Heparin Anti-Xa Level ABG pH POC ABG pCO2 POC ABG pO2 ABG pO2 ABG HCO3 ABG O2 Saturation ABG Base Excess ABG Hemoglobin ABG Oxyhemoglobin ABG Sodium ABG Potassium ABG Chloride ABG Glucose VBG pH Oxyhemoglobin Carboxyhemoglobin Sodium Potassium Chloride Carbon Dioxide BUN Creatinine Glucose POC Glucose 136 H Lactic Acid Calcium Phosphorus Magnesium Total Bilirubin AST ALT Ammonia Lactate Dehydrogenase Total Creatine Kinase CK-MB (CK-2) Troponin T NT-Pro-B Natriuret Pep Total Protein Albumin Triglycerides TSH Arterial Blood Glucose Arterial Blood Ionized Calcium Urine pH Urine WBC (Auto) Urine Creatinine 93.7 H 10/19/20 10/19/20 10/20/20 17:53 23:39 04:30 WBC RBC Hgb Hct RDW Lymph % (Auto) [place] % (Auto) Lymph # (Auto) [place] # (Auto) Seg Neutrophils % Lymphocytes % (Manual) Monocytes % (Manual) Seg Neutrophils # Seg Neutrophils # Man Lymphocytes # (Manual) Monocytes # (Manual) D-Dimer Heparin Anti-Xa Level ABG pH POC ABG pCO2 POC ABG pO2 ABG pO2 ABG HCO3 ABG O2 Saturation ABG Base Excess ABG Hemoglobin ABG Oxyhemoglobin ABG Sodium ABG Potassium ABG Chloride ABG Glucose VBG pH Oxyhemoglobin Carboxyhemoglobin Sodium Potassium Chloride Carbon Dioxide BUN 104 H Creatinine 2.8 H Glucose 151 H POC Glucose 137 H 133 H Lactic Acid Calcium Phosphorus Magnesium Total Bilirubin AST ALT Ammonia Lactate Dehydrogenase Total Creatine Kinase CK-MB (CK-2) Troponin T NT-Pro-B Natriuret Pep Total Protein Albumin Triglycerides TSH Arterial Blood Glucose Arterial Blood Ionized Calcium Urine pH Urine WBC (Auto) Urine Creatinine 10/20/20 10/20/20 10/20/20 04:30 05:38 11:34 WBC 17.9 H RBC Hgb 11.7 L Hct RDW Lymph % (Auto) [place] % (Auto) Lymph # (Auto) [place] # (Auto) Seg Neutrophils % Lymphocytes % (Manual) Monocytes % (Manual) Seg Neutrophils # Seg Neutrophils # Man Lymphocytes # (Manual) Monocytes # (Manual) D-Dimer Heparin Anti-Xa Level ABG pH POC ABG pCO2 POC ABG pO2 ABG pO2 ABG HCO3 ABG O2 Saturation ABG Base Excess ABG Hemoglobin ABG Oxyhemoglobin ABG Sodium ABG Potassium ABG Chloride ABG Glucose VBG pH Oxyhemoglobin Carboxyhemoglobin Sodium Potassium Chloride Carbon Dioxide BUN Creatinine Glucose POC Glucose 164 H 148 H Lactic Acid Calcium Phosphorus Magnesium Total Bilirubin AST ALT Ammonia Lactate Dehydrogenase Total Creatine Kinase CK-MB (CK-2) Troponin T NT-Pro-B Natriuret Pep Total Protein Albumin Triglycerides TSH Arterial Blood Glucose Arterial Blood Ionized Calcium Urine pH Urine WBC (Auto) Urine Creatinine 10/20/20 10/20/20 10/20/20 17:40 20:20 23:29 WBC RBC Hgb Hct RDW Lymph % (Auto) [place] % (Auto) Lymph # (Auto) [place] # (Auto) Seg Neutrophils % Lymphocytes % (Manual) Monocytes % (Manual) Seg Neutrophils # Seg Neutrophils # Man Lymphocytes # (Manual) Monocytes # (Manual) D-Dimer Heparin Anti-Xa Level ABG pH 7.292 L POC ABG pCO2 68.5 H POC ABG pO2 ABG pO2 ABG HCO3 ABG O2 Saturation ABG Base Excess ABG Hemoglobin 11.6 L ABG Oxyhemoglobin ABG Sodium ABG Potassium ABG Chloride ABG Glucose 145 H VBG pH Oxyhemoglobin Carboxyhemoglobin Sodium Potassium Chloride Carbon Dioxide BUN Creatinine Glucose POC Glucose 130 H 136 H Lactic Acid Calcium Phosphorus Magnesium Total Bilirubin AST ALT Ammonia Lactate Dehydrogenase Total Creatine Kinase CK-MB (CK-2) Troponin T NT-Pro-B Natriuret Pep Total Protein Albumin Triglycerides TSH Arterial Blood Glucose 145 H Arterial Blood Ionized Calcium Urine pH Urine WBC (Auto) Urine Creatinine 10/21/20 10/21/20 10/21/20 04:20 06:26 06:30 WBC RBC Hgb Hct RDW Lymph % (Auto) [place] % (Auto) Lymph # (Auto) [place] # (Auto) Seg Neutrophils % Lymphocytes % (Manual) Monocytes % (Manual) Seg Neutrophils # Seg Neutrophils # Man Lymphocytes # (Manual) Monocytes # (Manual) D-Dimer Heparin Anti-Xa Level ABG pH 7.262 L POC ABG pCO2 72.4 H POC ABG pO2 81.6 L ABG pO2 ABG HCO3 ABG O2 Saturation ABG Base Excess ABG Hemoglobin 11.6 L ABG Oxyhemoglobin ABG Sodium ABG Potassium ABG Chloride ABG Glucose 140 H VBG pH Oxyhemoglobin Carboxyhemoglobin Sodium Potassium Chloride Carbon Dioxide 33 H BUN 104 H Creatinine 2.9 H Glucose 153 H POC Glucose 128 H Lactic Acid Calcium Phosphorus Magnesium Total Bilirubin AST ALT Ammonia Lactate Dehydrogenase Total Creatine Kinase CK-MB (CK-2) Troponin T NT-Pro-B Natriuret Pep Total Protein Albumin Triglycerides TSH Arterial Blood Glucose 140 H Arterial Blood Ionized Calcium Urine pH Urine WBC (Auto) Urine Creatinine 10/21/20 10/21/20 10/21/20 06:30 11:24 17:21 WBC 13.3 H RBC Hgb 10.7 L Hct 32.7 L RDW Lymph % (Auto) [place] % (Auto) Lymph # (Auto) [place] # (Auto) Seg Neutrophils % Lymphocytes % (Manual) Monocytes % (Manual) Seg Neutrophils # Seg Neutrophils # Man Lymphocytes # (Manual) Monocytes # (Manual) D-Dimer Heparin Anti-Xa Level ABG pH POC ABG pCO2 POC ABG pO2 ABG pO2 ABG HCO3 ABG O2 Saturation ABG Base Excess ABG Hemoglobin ABG Oxyhemoglobin ABG Sodium ABG Potassium ABG Chloride ABG Glucose VBG pH Oxyhemoglobin Carboxyhemoglobin Sodium Potassium Chloride Carbon Dioxide BUN Creatinine Glucose POC Glucose 178 H 138 H Lactic Acid Calcium Phosphorus Magnesium Total Bilirubin AST ALT Ammonia Lactate Dehydrogenase Total Creatine Kinase CK-MB (CK-2) Troponin T NT-Pro-B Natriuret Pep Total Protein Albumin Triglycerides TSH Arterial Blood Glucose Arterial Blood Ionized Calcium Urine pH Urine WBC (Auto) Urine Creatinine 10/22/20 10/22/20 10/22/20 00:05 04:30 06:15 WBC RBC Hgb Hct RDW Lymph % (Auto) [place] % (Auto) Lymph # (Auto) [place] # (Auto) Seg Neutrophils % Lymphocytes % (Manual) Monocytes % (Manual) Seg Neutrophils # Seg Neutrophils # Man Lymphocytes # (Manual) Monocytes # (Manual) D-Dimer Heparin Anti-Xa Level ABG pH 7.225 L POC ABG pCO2 76.6 H POC ABG pO2 ABG pO2 ABG HCO3 ABG O2 Saturation ABG Base Excess ABG Hemoglobin 11.1 L ABG Oxyhemoglobin ABG Sodium ABG Potassium ABG Chloride ABG Glucose 151 H VBG pH Oxyhemoglobin Carboxyhemoglobin Sodium Potassium Chloride Carbon Dioxide 32 H BUN 103 H Creatinine 2.7 H Glucose 151 H POC Glucose 135 H Lactic Acid Calcium Phosphorus Magnesium Total Bilirubin AST ALT Ammonia Lactate Dehydrogenase Total Creatine Kinase CK-MB (CK-2) Troponin T NT-Pro-B Natriuret Pep Total Protein Albumin Triglycerides TSH Arterial Blood Glucose 151 H Arterial Blood Ionized Calcium Urine pH Urine WBC (Auto) Urine Creatinine 10/22/20 10/22/20 10/22/20 06:18 11:34 11:44 WBC RBC Hgb Hct RDW Lymph % (Auto) [place] % (Auto) Lymph # (Auto) [place] # (Auto) Seg Neutrophils % Lymphocytes % (Manual) Monocytes % (Manual) Seg Neutrophils # Seg Neutrophils # Man Lymphocytes # (Manual) Monocytes # (Manual) D-Dimer Heparin Anti-Xa Level ABG pH 7.278 L POC ABG pCO2 67.8 H POC ABG pO2 ABG pO2 ABG HCO3 ABG O2 Saturation ABG Base Excess ABG Hemoglobin 10.2 L ABG Oxyhemoglobin ABG Sodium ABG Potassium ABG Chloride ABG Glucose 172 H VBG pH Oxyhemoglobin Carboxyhemoglobin Sodium Potassium Chloride Carbon Dioxide BUN Creatinine Glucose POC Glucose 137 H 147 H Lactic Acid Calcium Phosphorus Magnesium Total Bilirubin AST ALT Ammonia Lactate Dehydrogenase Total Creatine Kinase CK-MB (CK-2) Troponin T NT-Pro-B Natriuret Pep Total Protein Albumin Triglycerides TSH Arterial Blood Glucose 172 H Arterial Blood Ionized Calcium Urine pH Urine WBC (Auto) Urine Creatinine 10/22/20 10/22/20 10/23/20 17:40 23:55 05:11 WBC RBC Hgb Hct RDW Lymph % (Auto) [place] % (Auto) Lymph # (Auto) [place] # (Auto) Seg Neutrophils % Lymphocytes % (Manual) Monocytes % (Manual) Seg Neutrophils # Seg Neutrophils # Man Lymphocytes # (Manual) Monocytes # (Manual) D-Dimer Heparin Anti-Xa Level ABG pH POC ABG pCO2 63.6 H POC ABG pO2 81.2 L ABG pO2 ABG HCO3 ABG O2 Saturation ABG Base Excess ABG Hemoglobin 10.6 L ABG Oxyhemoglobin ABG Sodium ABG Potassium ABG Chloride 109.0 H ABG Glucose 149 H VBG pH Oxyhemoglobin Carboxyhemoglobin Sodium Potassium Chloride Carbon Dioxide BUN Creatinine Glucose POC Glucose 141 H 139 H Lactic Acid Calcium Phosphorus Magnesium Total Bilirubin AST ALT Ammonia Lactate Dehydrogenase Total Creatine Kinase CK-MB (CK-2) Troponin T NT-Pro-B Natriuret Pep Total Protein Albumin Triglycerides TSH Arterial Blood Glucose 149 H Arterial Blood Ionized Calcium Urine pH Urine WBC (Auto) Urine Creatinine 10/23/20 10/23/20 10/23/20 05:39 06:00 11:32 WBC RBC Hgb Hct RDW Lymph % (Auto) [place] % (Auto) Lymph # (Auto) [place] # (Auto) Seg Neutrophils % Lymphocytes % (Manual) Monocytes % (Manual) Seg Neutrophils # Seg Neutrophils # Man Lymphocytes # (Manual) Monocytes # (Manual) D-Dimer Heparin Anti-Xa Level ABG pH POC ABG pCO2 POC ABG pO2 ABG pO2 ABG HCO3 ABG O2 Saturation ABG Base Excess ABG Hemoglobin ABG Oxyhemoglobin ABG Sodium ABG Potassium ABG Chloride ABG Glucose VBG pH Oxyhemoglobin Carboxyhemoglobin Sodium 146 H Potassium Chloride Carbon Dioxide 35 H BUN 92 H Creatinine 2.0 H Glucose 144 H POC Glucose 139 H 176 H Lactic Acid Calcium Phosphorus Magnesium Total Bilirubin AST ALT Ammonia Lactate Dehydrogenase Total Creatine Kinase CK-MB (CK-2) Troponin T NT-Pro-B Natriuret Pep Total Protein Albumin Triglycerides TSH Arterial Blood Glucose Arterial Blood Ionized Calcium Urine pH Urine WBC (Auto) Urine Creatinine 10/23/20 10/23/20 10/24/20 11:34 17:55 05:33 WBC RBC Hgb Hct RDW Lymph % (Auto) [place] % (Auto) Lymph # (Auto) [place] # (Auto) Seg Neutrophils % Lymphocytes % (Manual) Monocytes % (Manual) Seg Neutrophils # Seg Neutrophils # Man Lymphocytes # (Manual) Monocytes # (Manual) D-Dimer Heparin Anti-Xa Level ABG pH POC ABG pCO2 POC ABG pO2 ABG pO2 ABG HCO3 ABG O2 Saturation ABG Base Excess ABG Hemoglobin ABG Oxyhemoglobin ABG Sodium ABG Potassium ABG Chloride ABG Glucose VBG pH Oxyhemoglobin Carboxyhemoglobin Sodium 147 H Potassium Chloride Carbon Dioxide 32 H BUN 76 H Creatinine 1.7 H Glucose 172 H POC Glucose 173 H 135 H Lactic Acid Calcium Phosphorus Magnesium Total Bilirubin AST ALT Ammonia Lactate Dehydrogenase Total Creatine Kinase CK-MB (CK-2) Troponin T NT-Pro-B Natriuret Pep Total Protein Albumin Triglycerides TSH Arterial Blood Glucose Arterial Blood Ionized Calcium Urine pH Urine WBC (Auto) Urine Creatinine 10/24/20 10/24/20 10/24/20 05:41 12:09 18:09 WBC RBC Hgb Hct RDW Lymph % (Auto) [place] % (Auto) Lymph # (Auto) [place] # (Auto) Seg Neutrophils % Lymphocytes % (Manual) Monocytes % (Manual) Seg Neutrophils # Seg Neutrophils # Man Lymphocytes # (Manual) Monocytes # (Manual) D-Dimer Heparin Anti-Xa Level ABG pH POC ABG pCO2 POC ABG pO2 ABG pO2 ABG HCO3 ABG O2 Saturation ABG Base Excess ABG Hemoglobin ABG Oxyhemoglobin ABG Sodium ABG Potassium ABG Chloride ABG Glucose VBG pH Oxyhemoglobin Carboxyhemoglobin Sodium Potassium Chloride Carbon Dioxide BUN Creatinine Glucose POC Glucose 156 H 154 H 132 H Lactic Acid Calcium Phosphorus Magnesium Total Bilirubin AST ALT Ammonia Lactate Dehydrogenase Total Creatine Kinase CK-MB (CK-2) Troponin T NT-Pro-B Natriuret Pep Total Protein Albumin Triglycerides TSH Arterial Blood Glucose Arterial Blood Ionized Calcium Urine pH Urine WBC (Auto) Urine Creatinine 10/24/20 10/25/20 10/25/20 23:39 05:29 08:55 WBC RBC Hgb Hct RDW Lymph % (Auto) [place] % (Auto) Lymph # (Auto) [place] # (Auto) Seg Neutrophils % Lymphocytes % (Manual) Monocytes % (Manual) Seg Neutrophils # Seg Neutrophils # Man Lymphocytes # (Manual) Monocytes # (Manual) D-Dimer Heparin Anti-Xa Level ABG pH POC ABG pCO2 POC ABG pO2 ABG pO2 ABG HCO3 ABG O2 Saturation ABG Base Excess ABG Hemoglobin ABG Oxyhemoglobin ABG Sodium ABG Potassium ABG Chloride ABG Glucose VBG pH Oxyhemoglobin Carboxyhemoglobin Sodium 150 H Potassium Chloride 108.3 H Carbon Dioxide 32 H BUN 57 H Creatinine 1.5 H Glucose 142 H POC Glucose 131 H 142 H Lactic Acid Calcium Phosphorus Magnesium Total Bilirubin AST ALT Ammonia Lactate Dehydrogenase Total Creatine Kinase CK-MB (CK-2) Troponin T NT-Pro-B Natriuret Pep Total Protein Albumin Triglycerides TSH Arterial Blood Glucose Arterial Blood Ionized Calcium Urine pH Urine WBC (Auto) Urine Creatinine 10/25/20 10/25/20 10/25/20 08:55 11:08 18:10 WBC 14.3 H RBC 3.57 L Hgb 10.3 L Hct 31.6 L RDW Lymph % (Auto) [place] % (Auto) Lymph # (Auto) [place] # (Auto) Seg Neutrophils % Lymphocytes % (Manual) Monocytes % (Manual) Seg Neutrophils # Seg Neutrophils # Man Lymphocytes # (Manual) Monocytes # (Manual) D-Dimer Heparin Anti-Xa Level ABG pH POC ABG pCO2 52.3 H POC ABG pO2 ABG pO2 ABG HCO3 ABG O2 Saturation ABG Base Excess ABG Hemoglobin 11.2 L ABG Oxyhemoglobin ABG Sodium ABG Potassium ABG Chloride 108.0 H ABG Glucose 167 H VBG pH Oxyhemoglobin Carboxyhemoglobin Sodium Potassium Chloride Carbon Dioxide BUN Creatinine Glucose POC Glucose 157 H Lactic Acid Calcium Phosphorus Magnesium Total Bilirubin AST ALT Ammonia Lactate Dehydrogenase Total Creatine Kinase CK-MB (CK-2) Troponin T NT-Pro-B Natriuret Pep Total Protein Albumin Triglycerides TSH Arterial Blood Glucose 167 H Arterial Blood Ionized Calcium Urine pH Urine WBC (Auto) Urine Creatinine 10/25/20 10/26/20 10/26/20 18:20 00:20 06:08 WBC RBC Hgb Hct RDW Lymph % (Auto) [place] % (Auto) Lymph # (Auto) [place] # (Auto) Seg Neutrophils % Lymphocytes % (Manual) Monocytes % (Manual) Seg Neutrophils # Seg Neutrophils # Man Lymphocytes # (Manual) Monocytes # (Manual) D-Dimer Heparin Anti-Xa Level ABG pH POC ABG pCO2 POC ABG pO2 ABG pO2 ABG HCO3 ABG O2 Saturation ABG Base Excess ABG Hemoglobin ABG Oxyhemoglobin ABG Sodium ABG Potassium ABG Chloride ABG Glucose VBG pH Oxyhemoglobin Carboxyhemoglobin Sodium Potassium Chloride Carbon Dioxide BUN Creatinine Glucose POC Glucose 127 H 108 H 119 H Lactic Acid Calcium Phosphorus Magnesium Total Bilirubin AST ALT Ammonia Lactate Dehydrogenase Total Creatine Kinase CK-MB (CK-2) Troponin T NT-Pro-B Natriuret Pep Total Protein Albumin Triglycerides TSH Arterial Blood Glucose Arterial Blood Ionized Calcium Urine pH Urine WBC (Auto) Urine Creatinine 10/26/20 10/26/20 10/26/20 07:38 07:38 11:28 WBC 13.5 H RBC 3.37 L Hgb 9.8 L Hct 30.0 L RDW Lymph % (Auto) [place] % (Auto) Lymph # (Auto) [place] # (Auto) Seg Neutrophils % Lymphocytes % (Manual) Monocytes % (Manual) Seg Neutrophils # Seg Neutrophils # Man Lymphocytes # (Manual) Monocytes # (Manual) D-Dimer Heparin Anti-Xa Level ABG pH POC ABG pCO2 POC ABG pO2 ABG pO2 ABG HCO3 ABG O2 Saturation ABG Base Excess ABG Hemoglobin ABG Oxyhemoglobin ABG Sodium ABG Potassium ABG Chloride ABG Glucose VBG pH Oxyhemoglobin Carboxyhemoglobin Sodium 149 H Potassium Chloride 107.6 H Carbon Dioxide 34 H BUN 49 H Creatinine 1.4 H Glucose 137 H POC Glucose 148 H Lactic Acid Calcium Phosphorus Magnesium Total Bilirubin AST ALT Ammonia Lactate Dehydrogenase Total Creatine Kinase CK-MB (CK-2) Troponin T NT-Pro-B Natriuret Pep Total Protein Albumin Triglycerides TSH Arterial Blood Glucose Arterial Blood Ionized Calcium Urine pH Urine WBC (Auto) Urine Creatinine 10/26/20 10/26/20 10/27/20 18:17 23:37 05:08 WBC RBC Hgb Hct RDW Lymph % (Auto) [place] % (Auto) Lymph # (Auto) [place] # (Auto) Seg Neutrophils % Lymphocytes % (Manual) Monocytes % (Manual) Seg Neutrophils # Seg Neutrophils # Man Lymphocytes # (Manual) Monocytes # (Manual) D-Dimer Heparin Anti-Xa Level ABG pH POC ABG pCO2 POC ABG pO2 ABG pO2 ABG HCO3 ABG O2 Saturation ABG Base Excess ABG Hemoglobin ABG Oxyhemoglobin ABG Sodium ABG Potassium ABG Chloride ABG Glucose VBG pH Oxyhemoglobin Carboxyhemoglobin Sodium Potassium Chloride Carbon Dioxide BUN Creatinine Glucose POC Glucose 121 H 152 H 120 H Lactic Acid Calcium Phosphorus Magnesium Total Bilirubin AST ALT Ammonia Lactate Dehydrogenase Total Creatine Kinase CK-MB (CK-2) Troponin T NT-Pro-B Natriuret Pep Total Protein Albumin Triglycerides TSH Arterial Blood Glucose Arterial Blood Ionized Calcium Urine pH Urine WBC (Auto) Urine Creatinine 10/27/20 10/27/20 10/27/20 07:30 07:30 11:59 WBC RBC 3.46 L Hgb 10.2 L Hct 30.9 L RDW Lymph % (Auto) [place] % (Auto) Lymph # (Auto) [place] # (Auto) Seg Neutrophils % Lymphocytes % (Manual) Monocytes % (Manual) Seg Neutrophils # Seg Neutrophils # Man Lymphocytes # (Manual) Monocytes # (Manual) D-Dimer Heparin Anti-Xa Level ABG pH POC ABG pCO2 POC ABG pO2 ABG pO2 ABG HCO3 ABG O2 Saturation ABG Base Excess ABG Hemoglobin ABG Oxyhemoglobin ABG Sodium ABG Potassium ABG Chloride ABG Glucose VBG pH Oxyhemoglobin Carboxyhemoglobin Sodium 146 H Potassium Chloride Carbon Dioxide 34 H BUN 45 H Creatinine Glucose 131 H POC Glucose 143 H Lactic Acid Calcium Phosphorus Magnesium Total Bilirubin AST ALT Ammonia Lactate Dehydrogenase Total Creatine Kinase CK-MB (CK-2) Troponin T NT-Pro-B Natriuret Pep Total Protein Albumin Triglycerides TSH Arterial Blood Glucose Arterial Blood Ionized Calcium Urine pH Urine WBC (Auto) Urine Creatinine 10/27/20 10/27/20 10/28/20 18:52 23:03 07:00 WBC RBC Hgb Hct RDW Lymph % (Auto) [place] % (Auto) Lymph # (Auto) [place] # (Auto) Seg Neutrophils % Lymphocytes % (Manual) Monocytes % (Manual) Seg Neutrophils # Seg Neutrophils # Man Lymphocytes # (Manual) Monocytes # (Manual) D-Dimer Heparin Anti-Xa Level ABG pH POC ABG pCO2 POC ABG pO2 ABG pO2 ABG HCO3 ABG O2 Saturation ABG Base Excess ABG Hemoglobin ABG Oxyhemoglobin ABG Sodium ABG Potassium ABG Chloride ABG Glucose VBG pH Oxyhemoglobin Carboxyhemoglobin Sodium 147 H Potassium Chloride Carbon Dioxide 35 H BUN 39 H Creatinine Glucose 133 H POC Glucose 119 H 158 H Lactic Acid Calcium Phosphorus Magnesium Total Bilirubin AST ALT Ammonia Lactate Dehydrogenase Total Creatine Kinase CK-MB (CK-2) Troponin T NT-Pro-B Natriuret Pep Total Protein Albumin Triglycerides TSH Arterial Blood Glucose Arterial Blood Ionized Calcium Urine pH Urine WBC (Auto) Urine Creatinine 10/28/20 10/28/20 10/28/20 09:00 11:47 17:15 WBC 12.5 H RBC 3.58 L Hgb 10.5 L Hct 32.1 L RDW Lymph % (Auto) [place] % (Auto) Lymph # (Auto) [place] # (Auto) Seg Neutrophils % Lymphocytes % (Manual) Monocytes % (Manual) Seg Neutrophils # Seg Neutrophils # Man Lymphocytes # (Manual) Monocytes # (Manual) D-Dimer Heparin Anti-Xa Level ABG pH POC ABG pCO2 POC ABG pO2 ABG pO2 ABG HCO3 ABG O2 Saturation ABG Base Excess ABG Hemoglobin ABG Oxyhemoglobin ABG Sodium ABG Potassium ABG Chloride ABG Glucose VBG pH Oxyhemoglobin Carboxyhemoglobin Sodium Potassium Chloride Carbon Dioxide BUN Creatinine Glucose POC Glucose 129 H 109 H Lactic Acid Calcium Phosphorus Magnesium Total Bilirubin AST ALT Ammonia Lactate Dehydrogenase Total Creatine Kinase CK-MB (CK-2) Troponin T NT-Pro-B Natriuret Pep Total Protein Albumin Triglycerides TSH Arterial Blood Glucose Arterial Blood Ionized Calcium Urine pH Urine WBC (Auto) Urine Creatinine 10/28/20 10/29/20 10/29/20 23:31 04:23 04:23 WBC 13.6 H RBC 3.47 L Hgb 10.5 L Hct 30.7 L RDW 15.4 H Lymph % (Auto) [place] % (Auto) Lymph # (Auto) [place] # (Auto) Seg Neutrophils % Lymphocytes % (Manual) Monocytes % (Manual) Seg Neutrophils # Seg Neutrophils # Man Lymphocytes # (Manual) Monocytes # (Manual) D-Dimer Heparin Anti-Xa Level ABG pH POC ABG pCO2 POC ABG pO2 ABG pO2 ABG HCO3 ABG O2 Saturation ABG Base Excess ABG Hemoglobin ABG Oxyhemoglobin ABG Sodium ABG Potassium ABG Chloride ABG Glucose VBG pH Oxyhemoglobin Carboxyhemoglobin Sodium Potassium Chloride Carbon Dioxide 35 H BUN 34 H Creatinine Glucose 107 H POC Glucose 138 H Lactic Acid Calcium Phosphorus Magnesium Total Bilirubin AST ALT Ammonia Lactate Dehydrogenase Total Creatine Kinase CK-MB (CK-2) Troponin T NT-Pro-B Natriuret Pep Total Protein Albumin Triglycerides TSH Arterial Blood Glucose Arterial Blood Ionized Calcium Urine pH Urine WBC (Auto) Urine Creatinine 10/29/20 10/29/20 10/29/20 05:21 11:49 23:19 WBC RBC Hgb Hct RDW Lymph % (Auto) [place] % (Auto) Lymph # (Auto) [place] # (Auto) Seg Neutrophils % Lymphocytes % (Manual) Monocytes % (Manual) Seg Neutrophils # Seg Neutrophils # Man Lymphocytes # (Manual) Monocytes # (Manual) D-Dimer Heparin Anti-Xa Level ABG pH POC ABG pCO2 POC ABG pO2 ABG pO2 ABG HCO3 ABG O2 Saturation ABG Base Excess ABG Hemoglobin ABG Oxyhemoglobin ABG Sodium ABG Potassium ABG Chloride ABG Glucose VBG pH Oxyhemoglobin Carboxyhemoglobin Sodium Potassium Chloride Carbon Dioxide BUN Creatinine Glucose POC Glucose 115 H 124 H 129 H Lactic Acid Calcium Phosphorus Magnesium Total Bilirubin AST ALT Ammonia Lactate Dehydrogenase Total Creatine Kinase CK-MB (CK-2) Troponin T NT-Pro-B Natriuret Pep Total Protein Albumin Triglycerides TSH Arterial Blood Glucose Arterial Blood Ionized Calcium Urine pH Urine WBC (Auto) Urine Creatinine 10/30/20 10/30/20 10/30/20 04:59 05:10 11:52 WBC RBC Hgb Hct RDW Lymph % (Auto) [place] % (Auto) Lymph # (Auto) [place] # (Auto) Seg Neutrophils % Lymphocytes % (Manual) Monocytes % (Manual) Seg Neutrophils # Seg Neutrophils # Man Lymphocytes # (Manual) Monocytes # (Manual) D-Dimer Heparin Anti-Xa Level ABG pH POC ABG pCO2 POC ABG pO2 ABG pO2 ABG HCO3 ABG O2 Saturation ABG Base Excess ABG Hemoglobin ABG Oxyhemoglobin ABG Sodium ABG Potassium ABG Chloride ABG Glucose VBG pH Oxyhemoglobin Carboxyhemoglobin Sodium Potassium Chloride Carbon Dioxide 34 H BUN 33 H Creatinine Glucose 128 H POC Glucose 126 H 132 H Lactic Acid Calcium Phosphorus Magnesium Total Bilirubin AST ALT Ammonia Lactate Dehydrogenase Total Creatine Kinase CK-MB (CK-2) Troponin T NT-Pro-B Natriuret Pep Total Protein Albumin Triglycerides TSH Arterial Blood Glucose Arterial Blood Ionized Calcium Urine pH Urine WBC (Auto) Urine Creatinine 10/30/20 10/30/20 10/31/20 16:59 23:19 04:00 WBC RBC Hgb Hct RDW Lymph % (Auto) [place] % (Auto) Lymph # (Auto) [place] # (Auto) Seg Neutrophils % Lymphocytes % (Manual) Monocytes % (Manual) Seg Neutrophils # Seg Neutrophils # Man Lymphocytes # (Manual) Monocytes # (Manual) D-Dimer Heparin Anti-Xa Level ABG pH POC ABG pCO2 POC ABG pO2 ABG pO2 ABG HCO3 ABG O2 Saturation ABG Base Excess ABG Hemoglobin ABG Oxyhemoglobin ABG Sodium ABG Potassium ABG Chloride ABG Glucose VBG pH Oxyhemoglobin Carboxyhemoglobin Sodium Potassium Chloride Carbon Dioxide 38 H BUN 32 H Creatinine Glucose 121 H POC Glucose 118 H 138 H Lactic Acid Calcium Phosphorus Magnesium Total Bilirubin AST ALT Ammonia Lactate Dehydrogenase Total Creatine Kinase CK-MB (CK-2) Troponin T NT-Pro-B Natriuret Pep Total Protein Albumin Triglycerides TSH Arterial Blood Glucose Arterial Blood Ionized Calcium Urine pH Urine WBC (Auto) Urine Creatinine 10/31/20 10/31/20 10/31/20 05:13 11:09 16:17 WBC RBC Hgb Hct RDW Lymph % (Auto) [place] % (Auto) Lymph # (Auto) [place] # (Auto) Seg Neutrophils % Lymphocytes % (Manual) Monocytes % (Manual) Seg Neutrophils # Seg Neutrophils # Man Lymphocytes # (Manual) Monocytes # (Manual) D-Dimer Heparin Anti-Xa Level ABG pH POC ABG pCO2 71.1 H POC ABG pO2 67.4 L ABG pO2 ABG HCO3 ABG O2 Saturation ABG Base Excess ABG Hemoglobin 10.9 L ABG Oxyhemoglobin 90.7 L ABG Sodium ABG Potassium ABG Chloride ABG Glucose 134 H VBG pH Oxyhemoglobin Carboxyhemoglobin Sodium Potassium Chloride Carbon Dioxide BUN Creatinine Glucose POC Glucose 110 H 138 H Lactic Acid Calcium Phosphorus Magnesium Total Bilirubin AST ALT Ammonia Lactate Dehydrogenase Total Creatine Kinase CK-MB (CK-2) Troponin T NT-Pro-B Natriuret Pep Total Protein Albumin Triglycerides TSH Arterial Blood Glucose 134 H Arterial Blood Ionized Calcium Urine pH Urine WBC (Auto) Urine Creatinine 10/31/20 10/31/20 11/01/20 18:16 23:56 04:09 WBC 11.3 H RBC 3.05 L Hgb 9.0 L Hct 27.3 L RDW Lymph % (Auto) [place] % (Auto) Lymph # (Auto) [place] # (Auto) Seg Neutrophils % Lymphocytes % (Manual) Monocytes % (Manual) Seg Neutrophils # Seg Neutrophils # Man Lymphocytes # (Manual) Monocytes # (Manual) D-Dimer Heparin Anti-Xa Level ABG pH POC ABG pCO2 POC ABG pO2 ABG pO2 ABG HCO3 ABG O2 Saturation ABG Base Excess ABG Hemoglobin ABG Oxyhemoglobin ABG Sodium ABG Potassium ABG Chloride ABG Glucose VBG pH Oxyhemoglobin Carboxyhemoglobin Sodium Potassium Chloride Carbon Dioxide BUN Creatinine Glucose POC Glucose 135 H 122 H Lactic Acid Calcium Phosphorus Magnesium Total Bilirubin AST ALT Ammonia Lactate Dehydrogenase Total Creatine Kinase CK-MB (CK-2) Troponin T NT-Pro-B Natriuret Pep Total Protein Albumin Triglycerides TSH Arterial Blood Glucose Arterial Blood Ionized Calcium Urine pH Urine WBC (Auto) Urine Creatinine 11/01/20 11/01/20 11/01/20 05:10 11:51 17:17 WBC RBC Hgb Hct RDW Lymph % (Auto) [place] % (Auto) Lymph # (Auto) [place] # (Auto) Seg Neutrophils % Lymphocytes % (Manual) Monocytes % (Manual) Seg Neutrophils # Seg Neutrophils # Man Lymphocytes # (Manual) Monocytes # (Manual) D-Dimer Heparin Anti-Xa Level ABG pH POC ABG pCO2 POC ABG pO2 ABG pO2 ABG HCO3 ABG O2 Saturation ABG Base Excess ABG Hemoglobin ABG Oxyhemoglobin ABG Sodium ABG Potassium ABG Chloride ABG Glucose VBG pH Oxyhemoglobin Carboxyhemoglobin Sodium Potassium Chloride Carbon Dioxide BUN Creatinine Glucose POC Glucose 123 H 123 H 120 H Lactic Acid Calcium Phosphorus Magnesium Total Bilirubin AST ALT Ammonia Lactate Dehydrogenase Total Creatine Kinase CK-MB (CK-2) Troponin T NT-Pro-B Natriuret Pep Total Protein Albumin Triglycerides TSH Arterial Blood Glucose Arterial Blood Ionized Calcium Urine pH Urine WBC (Auto) Urine Creatinine 11/02/20 11/02/20 11/02/20 03:14 05:37 05:37 WBC RBC Hgb 9.8 L Hct 29.5 L RDW Lymph % (Auto) [place] % (Auto) Lymph # (Auto) [place] # (Auto) Seg Neutrophils % Lymphocytes % (Manual) Monocytes % (Manual) Seg Neutrophils # Seg Neutrophils # Man Lymphocytes # (Manual) Monocytes # (Manual) D-Dimer Heparin Anti-Xa Level ABG pH POC ABG pCO2 58.9 H POC ABG pO2 79.9 L ABG pO2 ABG HCO3 ABG O2 Saturation ABG Base Excess ABG Hemoglobin 10.6 L ABG Oxyhemoglobin ABG Sodium ABG Potassium ABG Chloride ABG Glucose 110 H VBG pH Oxyhemoglobin Carboxyhemoglobin Sodium Potassium Chloride Carbon Dioxide 37 H BUN 28 H Creatinine Glucose 106 H POC Glucose Lactic Acid Calcium Phosphorus Magnesium Total Bilirubin AST ALT Ammonia Lactate Dehydrogenase Total Creatine Kinase CK-MB (CK-2) Troponin T NT-Pro-B Natriuret Pep Total Protein Albumin Triglycerides TSH Arterial Blood Glucose 110 H Arterial Blood Ionized Calcium Urine pH Urine WBC (Auto) Urine Creatinine 11/02/20 11/03/20 11/03/20 23:29 04:45 04:45 WBC 11.8 H RBC 3.07 L Hgb 9.0 L Hct 27.2 L RDW Lymph % (Auto) 11.4 L [place] % (Auto) 9.5 H Lymph # (Auto) [place] # (Auto) 1.1 H Seg Neutrophils % 75.9 H Lymphocytes % (Manual) Monocytes % (Manual) Seg Neutrophils # 9.0 H Seg Neutrophils # Man Lymphocytes # (Manual) Monocytes # (Manual) D-Dimer Heparin Anti-Xa Level ABG pH POC ABG pCO2 POC ABG pO2 ABG pO2 ABG HCO3 ABG O2 Saturation ABG Base Excess ABG Hemoglobin ABG Oxyhemoglobin ABG Sodium ABG Potassium ABG Chloride ABG Glucose VBG pH Oxyhemoglobin Carboxyhemoglobin Sodium 146 H Potassium Chloride Carbon Dioxide 39 H BUN 26 H Creatinine Glucose POC Glucose 129 H Lactic Acid Calcium Phosphorus Magnesium Total Bilirubin AST ALT Ammonia Lactate Dehydrogenase Total Creatine Kinase CK-MB (CK-2) Troponin T NT-Pro-B Natriuret Pep Total Protein Albumin Triglycerides TSH Arterial Blood Glucose Arterial Blood Ionized Calcium Urine pH Urine WBC (Auto) Urine Creatinine 11/03/20 11/03/20 11/03/20 05:05 11:51 17:43 WBC RBC Hgb Hct RDW Lymph % (Auto) [place] % (Auto) Lymph # (Auto) [place] # (Auto) Seg Neutrophils % Lymphocytes % (Manual) Monocytes % (Manual) Seg Neutrophils # Seg Neutrophils # Man Lymphocytes # (Manual) Monocytes # (Manual) D-Dimer Heparin Anti-Xa Level ABG pH 7.452 H POC ABG pCO2 55.4 H POC ABG pO2 129.1 H ABG pO2 ABG HCO3 ABG O2 Saturation ABG Base Excess ABG Hemoglobin 9.3 L ABG Oxyhemoglobin ABG Sodium ABG Potassium ABG Chloride ABG Glucose 99 H VBG pH Oxyhemoglobin Carboxyhemoglobin 1.7 H Sodium Potassium Chloride Carbon Dioxide BUN Creatinine Glucose POC Glucose 131 H 125 H Lactic Acid Calcium Phosphorus Magnesium Total Bilirubin AST ALT Ammonia Lactate Dehydrogenase Total Creatine Kinase CK-MB (CK-2) Troponin T NT-Pro-B Natriuret Pep Total Protein Albumin Triglycerides TSH Arterial Blood Glucose 99 H Arterial Blood Ionized Calcium Urine pH Urine WBC (Auto) Urine Creatinine 11/03/20 11/04/20 11/04/20 23:27 04:00 05:10 WBC RBC Hgb Hct RDW Lymph % (Auto) [place] % (Auto) Lymph # (Auto) [place] # (Auto) Seg Neutrophils % Lymphocytes % (Manual) Monocytes % (Manual) Seg Neutrophils # Seg Neutrophils # Man Lymphocytes # (Manual) Monocytes # (Manual) D-Dimer Heparin Anti-Xa Level ABG pH POC ABG pCO2 POC ABG pO2 ABG pO2 ABG HCO3 ABG O2 Saturation ABG Base Excess ABG Hemoglobin ABG Oxyhemoglobin ABG Sodium ABG Potassium ABG Chloride ABG Glucose VBG pH Oxyhemoglobin Carboxyhemoglobin Sodium Potassium Chloride 95.2 L Carbon Dioxide 40 H BUN 26 H Creatinine Glucose 128 H POC Glucose 148 H 126 H Lactic Acid Calcium Phosphorus Magnesium Total Bilirubin AST ALT Ammonia Lactate Dehydrogenase Total Creatine Kinase CK-MB (CK-2) Troponin T NT-Pro-B Natriuret Pep Total Protein Albumin Triglycerides TSH Arterial Blood Glucose Arterial Blood Ionized Calcium Urine pH Urine WBC (Auto) Urine Creatinine 11/04/20 11/04/20 11/04/20 11:39 18:00 21:18 WBC RBC Hgb Hct RDW Lymph % (Auto) [place] % (Auto) Lymph # (Auto) [place] # (Auto) Seg Neutrophils % Lymphocytes % (Manual) Monocytes % (Manual) Seg Neutrophils # Seg Neutrophils # Man Lymphocytes # (Manual) Monocytes # (Manual) D-Dimer Heparin Anti-Xa Level ABG pH 7.511 H POC ABG pCO2 49.0 H POC ABG pO2 ABG pO2 ABG HCO3 ABG O2 Saturation ABG Base Excess ABG Hemoglobin 9.5 L ABG Oxyhemoglobin ABG Sodium 135.7 L ABG Potassium ABG Chloride ABG Glucose 152 H VBG pH Oxyhemoglobin Carboxyhemoglobin Sodium Potassium Chloride Carbon Dioxide BUN Creatinine Glucose POC Glucose 142 H 130 H Lactic Acid Calcium Phosphorus Magnesium Total Bilirubin AST ALT Ammonia Lactate Dehydrogenase Total Creatine Kinase CK-MB (CK-2) Troponin T NT-Pro-B Natriuret Pep Total Protein Albumin Triglycerides TSH Arterial Blood Glucose 152 H Arterial Blood Ionized Calcium 4.3 L Urine pH Urine WBC (Auto) Urine Creatinine 11/04/20 11/05/20 11/05/20 23:19 03:30 03:30 WBC RBC 3.02 L Hgb 9.1 L Hct 26.7 L RDW Lymph % (Auto) [place] % (Auto) Lymph # (Auto) [place] # (Auto) Seg Neutrophils % Lymphocytes % (Manual) Monocytes % (Manual) Seg Neutrophils # Seg Neutrophils # Man Lymphocytes # (Manual) Monocytes # (Manual) D-Dimer Heparin Anti-Xa Level ABG pH POC ABG pCO2 POC ABG pO2 ABG pO2 ABG HCO3 ABG O2 Saturation ABG Base Excess ABG Hemoglobin ABG Oxyhemoglobin ABG Sodium ABG Potassium ABG Chloride ABG Glucose VBG pH Oxyhemoglobin Carboxyhemoglobin Sodium Potassium Chloride 93.6 L Carbon Dioxide 40 H BUN 24 H Creatinine Glucose 121 H POC Glucose 126 H Lactic Acid Calcium Phosphorus Magnesium Total Bilirubin AST ALT Ammonia Lactate Dehydrogenase Total Creatine Kinase CK-MB (CK-2) Troponin T NT-Pro-B Natriuret Pep Total Protein Albumin Triglycerides TSH Arterial Blood Glucose Arterial Blood Ionized Calcium Urine pH Urine WBC (Auto) Urine Creatinine 11/05/20 05:24 WBC RBC Hgb Hct RDW Lymph % (Auto) [place] % (Auto) Lymph # (Auto) [place] # (Auto) Seg Neutrophils % Lymphocytes % (Manual) Monocytes % (Manual) Seg Neutrophils # Seg Neutrophils # Man Lymphocytes # (Manual) Monocytes # (Manual) D-Dimer Heparin Anti-Xa Level ABG pH POC ABG pCO2 POC ABG pO2 ABG pO2 ABG HCO3 ABG O2 Saturation ABG Base Excess ABG Hemoglobin ABG Oxyhemoglobin ABG Sodium ABG Potassium ABG Chloride ABG Glucose VBG pH Oxyhemoglobin Carboxyhemoglobin Sodium Potassium Chloride Carbon Dioxide BUN Creatinine Glucose POC Glucose 124 H Lactic Acid Calcium Phosphorus Magnesium Total Bilirubin AST ALT Ammonia Lactate Dehydrogenase Total Creatine Kinase CK-MB (CK-2) Troponin T NT-Pro-B Natriuret Pep Total Protein Albumin Triglycerides TSH Arterial Blood Glucose Arterial Blood Ionized Calcium Urine pH Urine WBC (Auto) Urine Creatinine Chest x-ray: other (none today) Allied health notes reviewed: nursing
[2020-11-05] MEDS: LORazepam 2 MG/ML VIAL IV PRN (20:03)
[2020-11-06] MEDS: ALBUTEROL 2.5 MG/3 ML NEBU IH PRN ×3 (00:27→23:06)
[2020-11-06] MEDS: ACETYLCYSTEINE 20% 200 MG/1 ML *FOR INHALATION USE INHALATION SCH ×4 (00:27→23:06)
[2020-11-06] MEDS: hydrALAZINE 25 MG TAB PO SCH ×3 (07:25→21:00)
[2020-11-06] MEDS: GLYCOPYRROLATE 1 MG TAB PO SCH ×3 (07:25→21:00)
[2020-11-06] MEDS: METOPROLOL TARTRATE 50 MG TAB PO SCH ×3 (08:15→21:00)
[2020-11-06] MEDS: levETIRAcetam 500 MG/5 ML ORAL LIQD PO SCH ×2 (09:15→21:00)
[2020-11-06] MEDS: amLODIPine 10 MG TAB PO SCH (09:16)
[2020-11-06] MEDS: QUEtiapine 100 MG TAB PO SCH ×2 (09:16→21:06)
[2020-11-06] MEDS: LANSOPRAZOLE 30 MG SOLUTAB FEEDTUBE SCH ×2 (09:16→21:00)
[2020-11-06] MEDS: DOCUSATE SODIUM 100 MG/10 ML ORAL LIQD PO SCH ×2 (09:16→21:00)
[2020-11-06] MEDS: HEPARIN 5,000 UNIT/1 ML VIAL SUB-Q SCH ×2 (09:16→21:00)
[2020-11-06] MEDS: POLYETHYLENE GLYCOL 3350 17 GM POWDER PO SCH (09:16)
--- NOTE | 2020-11-06 09:24 | Progress Note ---
Assessment and Plan This is a 55-year-old male with hypertension, asthma, obesity who was admitted on 10/10 after cardiac arrest x2 (supposedly after COVID-19 vaccine injection), sepsis, right-sided pneumonia, NSTEMI type II, acute heart failure, acute hypoxic respiratory failure, acute kidney injury and anoxic brain injury. Sepsis s/p multiple Cardiac Arrests S/p right-sided pneumonia MRSA in tracheal aspirate NSTEMI type II Acute heart failure Afib/Aflutter Leukocytosis Acute hypoxic respiratory failure Acute kidney injury (improved) Transaminitis HTN Obesity -Infectious disease, CCM, GI, nephrology, cardiology, surgery consulted, appreciate recommendations -Antibiotic therapy -10/18 recultured (blood/sputum/nasal discharge and urinalysis), tracheal aspirate with MRSA -S/p Linezolid -Continue antihypertensive regimen (changed to p.o.), titrate as needed -s/p IV amiodarone for A. fib/a flutter now on p.o. beta-shital -Trend CBC, BMP, LFT -trach/peg 10/27 -Resume SBT as tolerated and trach collar trials -Mucomyst 5 days -Avoid nephrotoxic medications, strict intake and output, renal ultrasound shows no obstruction -10/10 echocardiogram shows left internal systolic function normal, moderate concentric left ventricle hypertrophy, mild to side diastolic dysfunction, LVEF 55 to 60% with no pericardial effusion -Bilateral Doppler ultrasound negative for DVT/SVT which shows bilateral popliteal cysts -MRI Brain shows restricted diffusion and increased T2 signal cerebral cortex which can be seen in the setting of anoxic brain injury and/ or status epilepticus. -Repeat EEG shows significant generalized slowing compatible with to moderate severe diffuse neuropathy recently compatible with anoxic/ischemic encephalopathy -s/p D5W at 50ml/hr x 1 liter, currently on tube feedings and tolerating GI/DVT prophylaxis: SCDs to bilateral lower extremities while in bed, PPI, Heparin subq Dispo: ICU/ possible LTACH The high probability of a clinically significant, sudden or life threatening deterioration of the [multi] system(s) required my full and direct attention, intervention and personal management. The aggregate critical care time was [22] minutes. This time is in addition to time spent performing reported procedures but includes the following: [x] Data Review and interpretation [x] Patient assessment and monitoring of vital signs [x] Documentation [x] Medication orders and management Subjective Date of service: 11/06/20 Principal diagnosis: Cardiac arrest; Septic Shock; Ac. hypoxemic & hypercapnic resp failure; MOE Interval history: This is a 55-year-old male with hypertension, asthma, obesity in the emergency by presented to the emergency department on 10/10 after receiving a Covid vaccine being found unresponsive in his car in the emergency room bay with no pulse and ACLS protocol was initiated from his car to emergency room #21 where it was continued. Patient was intubated after ROSC was achieved and a central line was placed and the patient was initiated on pressors. In the emergency room patient seems to have seizure-like activity and then collapsed and was unresponsive with no palpable pulse and ACLS was again initiated patient with achievement of ROSC. Patient again coded with ACLS protocol in the CT room. Upon arrival to the ICU patient again coded and ROSC was achieved and he was placed on epinephrine, Lasix, heparin and sodium bicarbonate drip and sedated with propofol. An NG tube was placed, A-line was placed. Patient was admitted to the hospitalist service with consult to [facility], nephrology, infectious disease and cardiology. 10/11: Patient COVID-19 PCR is pending and he remains on mechanical ventilation, examination on assist control 400/30/12/0.95. Patient is scheduled for an echocardiogram and we will obtain bilateral lower extremity Doppler ultrasound given elevated D-dimer. Patient was supposed to have a CTA chest when he coded yesterday. We will begin trickle feeding. This morning patient was on a heparin drip and was noted to have bloody drainage from his NG tube. Heparin drip was discontinued. 10/12: Patient remains on propofol and Lasix drip at the time my examination and he is on assist control 400/25/12/0.60. Patient is hypokalemic this morning which was repleted. Nephrology discontinued Lasix drip and Diamox. Patient is hypertensive and has been started on hydralazine and beta-shital IV. He has been titrated off his vasopressors since yesterday. Vancomycin discontinued. Patient is currently on cefepime and azithromycin. 10/13: Sedation vacation attempted today and patient was not responsive to verbal or painful stimuli, does not track or focus or follow commands. This morning the patient has some respiratory alkalosis on ABG, hypernatremia and metabolic alkalosis on BMP. His kidney functions has improved slightly. Patient still has leukocytosis and infectious disease was like to continue antibiotic therapy. GI evaluated the patient yesterday and started the patient on PPI does not plan to scope at this time. At the time my examination patient assist-control 400/20/12/0.40 and sedated on propofol at 20. 4/2: GI has recommended a CT abdomen since there is increased output from OG tube and an MRI brain without contrast has been ordered per neurology recommendations. EEG is pending and the patient has been started on Keppra per neurology.. Nutrition has been consulted for initiation of parenteral nutrition. Patient remains sedated with propofol and his hypernatremia, leukocytosis, acute kidney injury and metabolic alkalosis is improving. Patient has hypokalemia today which was repleted. At the time of my examination patiwilfred t was on assist control 400/14/10/0.40 and CCM has dropped his rate to 12 and PEEP to 8. We have labs ordered for a.m. He was given a clonidine patch given persistent hypertension and he remains on D5 water per nephrology. 3: This morning patient was started to have a low-grade fever and he will continue antibiotic therapy per infectious disease. He will remove Tuttle catheter today and place a condom cath. Patient's renal function is worsening with a BUN/creatinine of 57/2.4 today and he has hyperphosphatemia at 5.2. This morning the time my examination patient is sedated on fentanyl and has TPN infusing. He is on assist control 400/12/8/0.35. Per GI we will start trial of tube feedings initiation has been reconsulted for orders. 10/18: Patient was febrile overnight and infectious disease has recultured (blood/sputum/right nostril culture) and sent in urinalysis. Cefepime was e xtended due to high fever and was started on vancomycin. Tube feeding is at goal and we will discontinue his parenteral nutrition. Patient is unable to obtain his MRI due to increased hypoxia and nasal secretions. He will be started on CPAP trials today. This time I examination patient was sedated on fentanyl and had PPN running at 42. His renal function tests have worsened and now has hyperchloremia. Hypernatremia has resolved. 10/19: Patient's T-max was 100.2 and he was pancultured yesterday, remains on antibiotic therapy and still has copious drainage from his nostrils. Patient still has leukocytosis however his/creatinine improved slightly to 3.1 from 3.3. Patient's urinalysis from yesterday shows pyuria. Patient's tracheal aspirate from yesterday grew Staph aureus. Patient is on cefepime and vancomycin. 10/20: This morning at the time my examination patient was CPAP trial of 10/6 and his T-max was 100.9. Patient sedated on fentanyl at 2 just received IV push fentanyl for tachycardia. Today his creatinine is 2.8 from 3.1 yesterday. Infectious disease has stopped cefepime and vancomycin and started linezolid and MRSA PCR is pending. Today removed his NG tube and replaced it with OG tube. We will keep the patient normal saline at 75 mL's per hour for 3 L. Patient developed A. fib/a flutter overnight and cardiology has increased his Lopressor and IV amiodarone. We requested neurology evaluation today. 10/21: Cardiology we will increase Lopressor to 3 times daily and discontinue his amiodarone drip. Infectious disease would like a sinus CT when feasible however patient did have a moment of desatting earlier this week when we attempted MRI brain. And again yesterday when we attempted a "trial run" with positioning at bedside Patient is on linezolid for 10 days per ID. 10/22/20; patient was seen and evaluated this morning, patient had low-grade fever overnight. Patient is on Lopressor per cardiology recommendation. Patient did not follow commands, no improvement in mental status. Evaluated by neurology yesterday and neurology once MRI or CAT scan but cannot be done because patient desats when he lies flat. Patient is on linezolid per ID recommendation. Continue NG tube feeding. Continue with Keppra. Patient is on assist control with PEEP of 6. Management plan was discussed with his yesterday. 10/23/2020; patient is on Zyvox for positive MRSA from tracheal aspirate and nasal secretion culture. Patient's mentation did not improve and does not follow commands. He was reevaluated by neurology and recommend MRI once patient is able to tolerate. MRI could not be done, CT scan could not be done because the patient could not lie flat. Clinically patient looks like she has anoxic encephalopathy. Patient is on NG tube feeding and on mechanical ventilation. Patient is on Keppra. Management plan was discussed with his . 10/24: This morning the patient is on AC TV 400,R 16, Peep 6 and FiO2 of 30% and sedated on 1mcg of Fentayl. He is hypernatremic and his kidney function tests have slightly improved. RN will attempt to obtain MRI Brain today since the patient was able to tolerate a "trial run" of being flat. [facility] plans to resume CPAP trials once MRI obtained. 10/25: This morning the time of examination patient was on assist control tidal volume 400, rate 16, PEEP 6, FiO2 30% and he is currently on CPAP. His MRI brain finding is consistent with status epilepticus or anoxic brain injury. Patient is EEG pending. No acute overnight events reported. 10/26: Patient has been on a CPAP trial 14/6 which she has been tolerating. Surgery was consulted for trach/PEG. Patient's hypernatremia and hyperchloremia slightly better as well as his kidney functions. He has received cardiac clearance for his trach and PEG. No acute events reported overnight. 10/27: At the time my examination patient was on CPAP trial 15/6 and 30% FiO2. Patient's electrolyte abnormalities were improving and sources kidney function. His T-max overnight was 99.3 and he remains on linezolid. No acute events reported overnight. 10/28: Yesterday patient had a trach and PEG placed. Patient remains n.p.o. as he has not been cleared by surgery to resume p.o. intake. Today he has slight leukocytosis which is likely reactive, hyponatremia, metabolic alkalosis however his kidney function continues to improve. No acute events overnight. 10/29: Plan to start tube feeding today, patient remains on mechanical ventilation with trach tube. Remains comatose without any change in mental status. Called and updated. 10/30: Vitals stable, patient remains on trach tube with ventilator. Tolerating tube feeding, otherwise clinically unchanged. Continue to provide supportive care and wean off from vent as tolerated. 10/31: No acute events reported overnight. Patient is CPAP at the time my examination however he will be tried on trach collar and we will obtain an ABG within 2 hours. 11/01. Patient is on a trach collar at 35% FiO2, he was reported, patient received Lasix and will obtain an ABG at 2100. dr. Uribe updated his and his mother is at bedside visiting him. 11/02. Patient was rested on assist control due to "tube feedings" endotracheal tube however CXR looks mild atelectasis rather than pneumonia. [facility] has given the patient another dose of Lasix and will obtain a CXR in the a.m. Patient remains with low-grade fever and we will resume daily SBT as tolerated. We will obtain a.m. labs and resume tube feedings. 11/03: Overnight the patient was rested on assist control and this afternoon he received CPAP trials. Patient's CXR looks pulmonary edema and he received additional 20 mg of Lasix today and tomorrow. Dr. Uribe updated the patient's family via phone today and they do not wish to change his code status. Patient's Robinul and scopolamine was decreased. 11/04: Patient was started on Mucomyst due to thick secretion, will continue gentle diuresis and again began T-piece trials. Pa this time my examination he was on CPAP trial 10 and was rested overnight, assist control. According to documentation patient rested on CPAP trial yesterday for approximately 4-1/2 hours. No acute events reported overnight. 11/05 patient improved with Mucomyst. Attempted weaning to begin T-piece trial. Physical examination consistent with anoxia 11/05. No new events over p.m. Secretions appear to be controlled. Updated family today. All questions and concerns answered to family satisfaction. Objective - Constitutional Vitals: Vital Signs - 12hr 11/05/20 11/05/20 11/05/20 21:31 22:01 22:31 Temperature Pulse Rate 81 86 81 Pulse Rate [ Anterior Right Throughout] Pulse Rate [ From Monitor] Respiratory 31 H 30 H 35 H Rate Respiratory Rate [Anterior Right Throughout] Blood Pressure 169/96 163/82 170/87 O2 Sat by Pulse 91 86 94 Oximetry 11/05/20 11/05/20 11/05/20 22:47 23:01 23:14 Temperature Pulse Rate 82 82 80 Pulse Rate [ Anterior Right Throughout] Pulse Rate [ From Monitor] Respiratory 22 Rate Respiratory Rate [Anterior Right Throughout] Blood Pressure 161/88 161/88 O2 Sat by Pulse 100 94 Oximetry 11/05/20 11/05/20 11/05/20 23:15 23:31 23:33 Temperature Pulse Rate 81 85 86 Pulse Rate [ Anterior Right Throughout] Pulse Rate [ 92 H From Monitor] Respiratory 25 H 18 23 Rate Respiratory Rate [Anterior Right Throughout] Blood Pressure 167/89 167/89 O2 Sat by Pulse 95 95 100 Oximetry 11/05/20 11/06/20 11/06/20 23:36 00:01 00:31 Temperature 100.1 F H Pulse Rate 83 86 Pulse Rate [ Anterior Right Throughout] Pulse Rate [ From Monitor] Respiratory 24 20 Rate Respiratory Rate [Anterior Right Throughout] Blood Pressure 134/71 134/71 O2 Sat by Pulse 98 100 Oximetry 11/06/20 11/06/20 11/06/20 00:32 01:01 01:30 Temperature Pulse Rate 86 84 78 Pulse Rate [ 85 Anterior Right Throughout] Pulse Rate [ 92 H From Monitor] Respiratory 15 25 H Rate Respiratory 16 Rate [Anterior Right Throughout] Blood Pressure 134/71 O2 Sat by Pulse 100 95 95 Oximetry 11/06/20 11/06/20 11/06/20 01:31 02:01 02:31 Temperature Pulse Rate 78 85 Pulse Rate [ Anterior Right Throughout] Pulse Rate [ From Monitor] Respiratory 12 19 Rate Respiratory Rate [Anterior Right Throughout] Blood Pressure 134/71 134/71 134/71 O2 Sat by Pulse 96 99 99 Oximetry 11/06/20 11/06/20 11/06/20 03:00 03:27 03:30 Temperature 99.8 F H Pulse Rate 84 81 Pulse Rate [ Anterior Right Throughout] Pulse Rate [ 92 H From Monitor] Respiratory 19 25 H Rate Respiratory Rate [Anterior Right Throughout] Blood Pressure 126/53 O2 Sat by Pulse 97 95 Oximetry 11/06/20 11/06/20 11/06/20 03:31 04:00 04:27 Temperature Pulse Rate 81 81 80 Pulse Rate [ Anterior Right Throughout] Pulse Rate [ From Monitor] Respiratory 20 18 Rate Respiratory Rate [Anterior Right Throughout] Blood Pressure 111/46 114/42 123/46 O2 Sat by Pulse 98 98 98 Oximetry 11/06/20 11/06/20 11/06/20 04:30 05:01 05:12 Temperature Pulse Rate 84 86 Pulse Rate [ Anterior Right Throughout] Pulse Rate [ 92 H From Monitor] Respiratory 19 19 25 H Rate Respiratory Rate [Anterior Right Throughout] Blood Pressure 123/46 136/43 O2 Sat by Pulse 98 100 95 Oximetry 11/06/20 11/06/20 11/06/20 05:31 06:01 06:30 Temperature Pulse Rate 86 82 86 Pulse Rate [ Anterior Right Throughout] Pulse Rate [ From Monitor] Respiratory 23 18 27 H Rate Respiratory Rate [Anterior Right Throughout] Blood Pressure 120/42 115/43 113/55 O2 Sat by Pulse 98 99 96 Oximetry 11/06/20 11/06/20 11/06/20 07:00 07:25 07:31 Temperature Pulse Rate 84 86 86 Pulse Rate [ Anterior Right Throughout] Pulse Rate [ From Monitor] Respiratory 19 19 Rate Respiratory Rate [Anterior Right Throughout] Blood Pressure 114/49 114/49 124/40 O2 Sat by Pulse 96 100 Oximetry 11/06/20 11/06/20 11/06/20 07:52 08:00 08:01 Temperature 98.8 F Pulse Rate 87 Pulse Rate [ Anterior Right Throughout] Pulse Rate [ 87 From Monitor] Respiratory 25 H 21 Rate Respiratory Rate [Anterior Right Throughout] Blood Pressure 115/37 O2 Sat by Pulse 95 99 Oximetry 11/06/20 11/06/20 11/06/20 08:15 08:31 09:01 Temperature Pulse Rate 86 74 82 Pulse Rate [ Anterior Right Throughout] Pulse Rate [ From Monitor] Respiratory 17 21 Rate Respiratory Rate [Anterior Right Throughout] Blood Pressure 161/76 111/33 111/33 O2 Sat by Pulse 100 98 Oximetry 11/06/20 09:16 Temperature Pulse Rate 88 Pulse Rate [ Anterior Right Throughout] Pulse Rate [ From Monitor] Respiratory Rate Respiratory Rate [Anterior Right Throughout] Blood Pressure 161/76 O2 Sat by Pulse Oximetry General appearance: Present: no acute distress, other (Remains intubated ) - Respiratory Respiratory: bilateral: diminished - Cardiovascular Rhythm: regular Extremity abnormal: edema - Labs CBC & Chem 7: 11/05/20 03:30 11/05/20 03:30 Labs: Abnormal lab results 11/05/20 11/05/20 11/05/20 Range/Units 11:37 17:37 23:20 POC Glucose 125 H 153 H 133 H (70-105) mg/dL 11/06/20 Range/Units 05:24 POC Glucose 143 H (70-105) mg/dL HEART Score - HEART Score EKG: Non-specific Age: 45-65 Troponin: Troponin T 0.125 ng/mL (0.00-0.029) H* D 10/12/20 04:00 Troponin: 1-3x normal limit - Critical Actions Critical Actions: 4-6 pts:12-16.6% risk of adverse cardiac event. Should be admitted
[2020-11-06] MEDS: LORazepam 2 MG/ML VIAL IV PRN (11:12)
--- NOTE | 2020-11-06 14:48 | Progress Note ---
Assessment and Plan Cardiac arrest x3 with ROSC Severe septic and cardiogenic shock Acute respiratory failure with hypoxemia and hypercarbia Acute pulmonary edema MOE (acute kidney injury) Lactic acidosis, severe metabolic acidosis Bilateral pneumonia, aspiration pneumonia Elevated troponins - stop Ativan re: delirium issues - increased seroquel doses - prn haldol for agitation - continue to shoot for RTC t-piece as tolerated - continue care as below otherwise; - complete mucomyst nebs X 5 days re: thick secretions - prn gentle diuresis - continue Seroquel for agitation control - daily SAT's and SBT assessment as tolerated - continue contact precautions re: MRSA - complete anti-infective's per ID rec's - follow clinically re: fevers / WBC - Monitor hemodynamics closely - wean supplemental oxygen for target O2 sat's > 92% acutely - VAP bundle addressed - continue lung protective strategies - bronchodilators with pulmonary hygiene per RT - wean per pulmonary driven protocols otherwise - Monitor urine output closely - bicarbonate infusion - avoid nephrotoxins, renally dose all medications - continue to avoid benzodiazepine's, reduce the possibility of delirium - continue Scopolamine for secretion control - continue wound care per RN/WCN - prn analgesia per CPOT score - Maintenance of sleep-wake cycle, avoid delirium - continue enteral nutritional support at goal rate as tolerated - G.I. & VTE prophylaxis - PT/OT/ROM exercises - continue mobility protocols for pressure ulcer prophylaxis - Monitor hemodynamics closely - continue other care per attending / other consultants - discharge planning ongoing concurrently .... Re-evaluate in am & prn CONDITION: CRITICAL PROGNOSIS: GUARDED CODE STATUS: FULL CODE The high probability of a clinically significant, sudden or life-threatening deterioration of the [respiratory, cardiovascular & neurologic] system(s) required my full and direct attention, intervention and personal management. The aggregate critical care time was [32] minutes without overlap. Time includes spent on; [x] Data Review and interpretation [x] Patient assessment and monitoring of vital signs [x] Documentation [x] Medication orders and management Subjective Date of service: 11/06/20 Principal diagnosis: Cardiac arrest; Septic Shock; Ac. hypoxemic & hypercapnic resp failure; MOE Interval history: Patient is seen today for: Cardiac arrest with ROSC; Severe septic and cardiogenic shock; Acute respiratory failure with hypoxemia and hypercarbia; Acute pulmonary edema; MOE; Lactic acidosis; severe metabolic acidosis; Bilateral pneumonia; aspiration pneumonia; Elevated troponins Seen and examined at bedside; 24hour events reviewed; nursing and respiratory care staff consulted; no adverse overnight events reported to me; resting peacefully in bed; tolerated about 12 hours on t-piece yesterday; rested due to agitation / increased work of breathing; a little more purposeful in terms of r eaching for trach / responding to sounds/voices Objective Vital Signs - 12hr 11/06/20 11/06/20 11/06/20 03:00 03:27 03:30 Temperature 99.8 F H Pulse Rate 84 81 Pulse Rate [ Anterior Bilateral Throughout] Pulse Rate [ 92 H From Monitor] Respiratory 19 25 H Rate Respiratory Rate [Anterior Bilateral Throughout] Blood Pressure 126/53 O2 Sat by Pulse 97 95 Oximetry O2 Sat by Pulse Oximetry [ Assessment] 11/06/20 11/06/20 11/06/20 03:31 04:00 04:27 Temperature Pulse Rate 81 81 80 Pulse Rate [ Anterior Bilateral Throughout] Pulse Rate [ From Monitor] Respiratory 20 18 Rate Respiratory Rate [Anterior Bilateral Throughout] Blood Pressure 111/46 114/42 123/46 O2 Sat by Pulse 98 98 98 Oximetry O2 Sat by Pulse Oximetry [ Assessment] 11/06/20 11/06/20 11/06/20 04:30 05:01 05:12 Temperature Pulse Rate 84 86 Pulse Rate [ Anterior Bilateral Throughout] Pulse Rate [ 92 H From Monitor] Respiratory 19 19 25 H Rate Respiratory Rate [Anterior Bilateral Throughout] Blood Pressure 123/46 136/43 O2 Sat by Pulse 98 100 95 Oximetry O2 Sat by Pulse Oximetry [ Assessment] 11/06/20 11/06/20 11/06/20 05:31 06:01 06:30 Temperature Pulse Rate 86 82 86 Pulse Rate [ Anterior Bilateral Throughout] Pulse Rate [ From Monitor] Respiratory 23 18 27 H Rate Respiratory Rate [Anterior Bilateral Throughout] Blood Pressure 120/42 115/43 113/55 O2 Sat by Pulse 98 99 96 Oximetry O2 Sat by Pulse Oximetry [ Assessment] 11/06/20 11/06/20 11/06/20 07:00 07:25 07:31 Temperature Pulse Rate 84 86 86 Pulse Rate [ Anterior Bilateral Throughout] Pulse Rate [ From Monitor] Respiratory 19 19 Rate Respiratory Rate [Anterior Bilateral Throughout] Blood Pressure 114/49 114/49 124/40 O2 Sat by Pulse 96 100 Oximetry O2 Sat by Pulse Oximetry [ Assessment] 11/06/20 11/06/20 11/06/20 07:52 08:00 08:01 Temperature 98.8 F Pulse Rate 85 87 Pulse Rate [ 82 Anterior Bilateral Throughout] Pulse Rate [ 87 From Monitor] Respiratory 25 H 21 Rate Respiratory 20 Rate [Anterior Bilateral Throughout] Blood Pressure 111/33 115/37 O2 Sat by Pulse 95 99 Oximetry O2 Sat by Pulse 100 Oximetry [ Assessment] 11/06/20 11/06/20 11/06/20 08:15 08:31 09:01 Temperature Pulse Rate 86 74 82 Pulse Rate [ Anterior Bilateral Throughout] Pulse Rate [ From Monitor] Respiratory 17 21 Rate Respiratory Rate [Anterior Bilateral Throughout] Blood Pressure 161/76 111/33 111/33 O2 Sat by Pulse 100 98 Oximetry O2 Sat by Pulse Oximetry [ Assessment] 11/06/20 11/06/20 11/06/20 09:16 09:30 09:31 Temperature Pulse Rate 88 79 94 H Pulse Rate [ Anterior Bilateral Throughout] Pulse Rate [ From Monitor] Respiratory 30 H 12 Rate Respiratory Rate [Anterior Bilateral Throughout] Blood Pressure 161/76 135/71 182/91 O2 Sat by Pulse 99 95 Oximetry O2 Sat by Pulse Oximetry [ Assessment] 11/06/20 11/06/20 11/06/20 10:01 10:31 11:00 Temperature Pulse Rate 81 80 106 H Pulse Rate [ Anterior Bilateral Throughout] Pulse Rate [ From Monitor] Respiratory 22 21 27 H Rate Respiratory Rate [Anterior Bilateral Throughout] Blood Pressure 160/77 135/67 199/116 O2 Sat by Pulse 94 96 90 Oximetry O2 Sat by Pulse Oximetry [ Assessment] 11/06/20 11/06/20 11/06/20 11:31 12:00 12:01 Temperature Pulse Rate 87 85 Pulse Rate [ Anterior Bilateral Throughout] Pulse Rate [ 84 From Monitor] Respiratory 31 H 25 H 29 H Rate Respiratory Rate [Anterior Bilateral Throughout] Blood Pressure 135/71 135/71 O2 Sat by Pulse 95 Oximetry O2 Sat by Pulse Oximetry [ Assessment] 11/06/20 11/06/20 11/06/20 12:28 12:31 13:01 Temperature 99.2 F Pulse Rate 84 Pulse Rate [ Anterior Bilateral Throughout] Pulse Rate [ From Monitor] Respiratory 27 H Rate Respiratory Rate [Anterior Bilateral Throughout] Blood Pressure 135/71 135/71 O2 Sat by Pulse 98 100 Oximetry O2 Sat by Pulse Oximetry [ Assessment] 11/06/20 11/06/20 11/06/20 13:30 14:00 14:41 Temperature Pulse Rate 84 87 85 Pulse Rate [ Anterior Bilateral Throughout] Pulse Rate [ From Monitor] Respiratory 30 H 31 H Rate Respiratory Rate [Anterior Bilateral Throughout] Blood Pressure 149/86 154/86 145/94 O2 Sat by Pulse 93 94 Oximetry O2 Sat by Pulse Oximetry [ Assessment] Constitutional: appears uncomfortable, other (middle aged obese male with mildly increased respiratory efort at rest) Eyes: non-icteric ENT: oropharynx moist, oropharyngeal exudate pre (thick), other (midline tracheostomy) Neck: supple, no lymphadenopathy, no JVD Effort: mildly labored Ascultation: Bilateral: diminished breath sounds, rhonchi (scant) Percussion: Bilateral: not dull Cardiovascular: regular rate and rhythm, other (S1,S2) Gastrointestinal: normoactive bowel sounds, soft, non-tender, non-distended (protuberant) Integumentary: normal Extremities: no cyanosis, no edema, pulses normal, no ischemia or petechiae Neurologic: pupils equal and round, unable to assess, other (encephalopathic) Psychiatric: other (unable to assess re: AMS) CBC and BMP: 11/05/20 03:30 11/05/20 03:30 ABG, PT/INR, D-dimer: ABG ABG pH 7.511 (7.320-7.450) H 11/04/20 21:18 POC ABG pCO2 49.0 mmHg (32.0-48.0) H 11/04/20 21:18 ABG pCO2 55.5 mm Hg 10/16/20 05:10 POC ABG pO2 88.5 mmHg (83-108) 11/04/20 21:18 ABG pO2 104.5 mm Hg (80.0-90.0) H 10/16/20 05:10 POC ABG HCO3 38.3 11/04/20 21:18 ABG O2 Saturation 96.9 (0-100) 11/04/20 21:18 PT/INR, D-dimer PT 13.5 Sec. (12.2-14.9) 10/28/20 07:00 INR 1.05 (0.87-1.13) 10/28/20 07:00 D-Dimer 679.5 ng/mlDDU (0-234) H 10/10/20 10:48 Abnormal lab findings: Abnormal Labs 10/10/20 10/10/20 10/10/20 10:46 10:46 10:46 WBC RBC Hgb Hct RDW Lymph % (Auto) [place] % (Auto) Lymph # (Auto) [place] # (Auto) Seg Neutrophils % Lymphocytes % (Manual) Monocytes % (Manual) Seg Neutrophils # Seg Neutrophils # Man Lymphocytes # (Manual) Monocytes # (Manual) D-Dimer Heparin Anti-Xa Level ABG pH POC ABG pCO2 POC ABG pO2 ABG pO2 ABG HCO3 ABG O2 Saturation ABG Base Excess ABG Hemoglobin ABG Oxyhemoglobin ABG Sodium ABG Potassium ABG Chloride ABG Glucose VBG pH Oxyhemoglobin Carboxyhemoglobin Sodium Potassium Chloride Carbon Dioxide BUN Creatinine Glucose POC Glucose Lactic Acid 13.60 H* Calcium Phosphorus Magnesium Total Bilirubin AST ALT Ammonia 214.0 H Lactate Dehydrogenase Total Creatine Kinase CK-MB (CK-2) Troponin T NT-Pro-B Natriuret Pep Total Protein Albumin Triglycerides TSH 6.260 H Arterial Blood Glucose Arterial Blood Ionized Calcium Urine pH Urine WBC (Auto) Urine Creatinine 10/10/20 10/10/20 10/10/20 10:46 10:48 10:48 WBC RBC 5.28 H Hgb 15.5 H Hct 48.8 H RDW Lymph % (Auto) [place] % (Auto) Lymph # (Auto) [place] # (Auto) Seg Neutrophils % Lymphocytes % (Manual) 42.0 H Monocytes % (Manual) Seg Neutrophils # Seg Neutrophils # Man Lymphocytes # (Manual) Monocytes # (Manual) D-Dimer Heparin Anti-Xa Level ABG pH POC ABG pCO2 POC ABG pO2 ABG pO2 ABG HCO3 ABG O2 Saturation ABG Base Excess ABG Hemoglobin ABG Oxyhemoglobin ABG Sodium ABG Potassium ABG Chloride ABG Glucose VBG pH Oxyhemoglobin Carboxyhemoglobin Sodium Potassium 3.3 L Chloride 91.2 L Carbon Dioxide BUN Creatinine 1.8 H Glucose 231 H POC Glucose Lactic Acid Calcium Phosphorus Magnesium Total Bilirubin AST 60 H ALT 57 H Ammonia Lactate Dehydrogenase Total Creatine Kinase CK-MB (CK-2) Troponin T NT-Pro-B Natriuret Pep 1187 H Total Protein 9.0 H Albumin Triglycerides TSH Arterial Blood Glucose Arterial Blood Ionized Calcium Urine pH Urine WBC (Auto) Urine Creatinine 10/10/20 10/10/20 10/10/20 10:48 10:48 10:48 WBC RBC Hgb Hct RDW Lymph % (Auto) [place] % (Auto) Lymph # (Auto) [place] # (Auto) Seg Neutrophils % Lymphocytes % (Manual) Monocytes % (Manual) Seg Neutrophils # Seg Neutrophils # Man Lymphocytes # (Manual) Monocytes # (Manual) D-Dimer 679.5 H Heparin Anti-Xa Level ABG pH POC ABG pCO2 POC ABG pO2 ABG pO2 ABG HCO3 ABG O2 Saturation ABG Base Excess ABG Hemoglobin ABG Oxyhemoglobin ABG Sodium ABG Potassium ABG Chloride ABG Glucose VBG pH 6.870 L* Oxyhemoglobin Carboxyhemoglobin Sodium Potassium Chloride Carbon Dioxide BUN Creatinine Glucose POC Glucose Lactic Acid Calcium Phosphorus Magnesium Total Bilirubin AST ALT Ammonia Lactate Dehydrogenase 386 H Total Creatine Kinase CK-MB (CK-2) Troponin T NT-Pro-B Natriuret Pep Total Protein Albumin Triglycerides TSH Arterial Blood Glucose Arterial Blood Ionized Calcium Urine pH Urine WBC (Auto) Urine Creatinine 10/10/20 10/10/20 10/10/20 14:10 14:20 15:50 WBC RBC Hgb Hct RDW Lymph % (Auto) [place] % (Auto) Lymph # (Auto) [place] # (Auto) Seg Neutrophils % Lymphocytes % (Manual) Monocytes % (Manual) Seg Neutrophils # Seg Neutrophils # Man Lymphocytes # (Manual) Monocytes # (Manual) D-Dimer Heparin Anti-Xa Level ABG pH 7.175 L 7.247 L POC ABG pCO2 85.0 H POC ABG pO2 43.7 L ABG pO2 60.3 L ABG HCO3 32.0 H ABG O2 Saturation 86.1 L ABG Base Excess ABG Hemoglobin ABG Oxyhemoglobin 67.7 L ABG Sodium ABG Potassium ABG Chloride ABG Glucose 247 H VBG pH Oxyhemoglobin 84.4 L Carboxyhemoglobin Sodium Potassium Chloride Carbon Dioxide BUN Creatinine Glucose POC Glucose Lactic Acid 4.00 H* Calcium Phosphorus Magnesium Total Bilirubin AST ALT Ammonia Lactate Dehydrogenase Total Creatine Kinase CK-MB (CK-2) Troponin T NT-Pro-B Natriuret Pep Total Protein Albumin Triglycerides TSH Arterial Blood Glucose 247 H Arterial Blood Ionized Calcium 4.4 L Urine pH Urine WBC (Auto) Urine Creatinine 10/10/20 10/10/20 10/10/20 15:50 16:22 18:18 WBC RBC Hgb Hct RDW Lymph % (Auto) [place] % (Auto) Lymph # (Auto) [place] # (Auto) Seg Neutrophils % Lymphocytes % (Manual) Monocytes % (Manual) Seg Neutrophils # Seg Neutrophils # Man Lymphocytes # (Manual) Monocytes # (Manual) D-Dimer Heparin Anti-Xa Level ABG pH 7.171 L POC ABG pCO2 96.6 H POC ABG pO2 55.3 L ABG pO2 ABG HCO3 ABG O2 Saturation ABG Base Excess ABG Hemoglobin ABG Oxyhemoglobin 81.4 L ABG Sodium ABG Potassium ABG Chloride ABG Glucose 115 H VBG pH Oxyhemoglobin Carboxyhemoglobin Sodium Potassium Chloride Carbon Dioxide BUN Creatinine Glucose POC Glucose 132 H Lactic Acid Calcium Phosphorus Magnesium Total Bilirubin AST ALT Ammonia Lactate Dehydrogenase Total Creatine Kinase 1192 H CK-MB (CK-2) 21.7 H Troponin T 0.377 H* D NT-Pro-B Natriuret Pep Total Protein Albumin Triglycerides TSH Arterial Blood Glucose 115 H Arterial Blood Ionized Calcium Urine pH Urine WBC (Auto) Urine Creatinine 10/10/20 10/10/20 10/10/20 18:18 18:18 22:49 WBC 23.0 H RBC 5.12 H Hgb Hct RDW Lymph % (Auto) [place] % (Auto) Lymph # (Auto) [place] # (Auto) Seg Neutrophils % Lymphocytes % (Manual) 4.0 L Monocytes % (Manual) 9.0 H Seg Neutrophils # Seg Neutrophils # Man 13.8 H Lymphocytes # (Manual) 0.9 L Monocytes # (Manual) 2.1 H D-Dimer Heparin Anti-Xa Level ABG pH POC ABG pCO2 POC ABG pO2 ABG pO2 ABG HCO3 ABG O2 Saturation ABG Base Excess ABG Hemoglobin ABG Oxyhemoglobin ABG Sodium ABG Potassium ABG Chloride ABG Glucose VBG pH Oxyhemoglobin Carboxyhemoglobin Sodium 146 H Potassium Chloride Carbon Dioxide 34 H D BUN 27 H Creatinine 2.7 H Glucose 102 H POC Glucose Lactic Acid Calcium Phosphorus Magnesium Total Bilirubin AST 90 H ALT 66 H Ammonia Lactate Dehydrogenase Total Creatine Kinase CK-MB (CK-2) Troponin T 0.273 H* D NT-Pro-B Natriuret Pep Total Protein Albumin Triglycerides TSH Arterial Blood Glucose Arterial Blood Ionized Calcium Urine pH Urine WBC (Auto) Urine Creatinine 10/11/20 10/11/20 10/11/20 02:00 02:00 02:00 WBC 17.3 H RBC Hgb Hct RDW Lymph % (Auto) 3.9 L [place] % (Auto) Lymph # (Auto) 0.7 L [place] # (Auto) Seg Neutrophils % 93.0 H Lymphocytes % (Manual) Monocytes % (Manual) Seg Neutrophils # 16.1 H Seg Neutrophils # Man Lymphocytes # (Manual) Monocytes # (Manual) D-Dimer Heparin Anti-Xa Level ABG pH POC ABG pCO2 POC ABG pO2 ABG pO2 ABG HCO3 ABG O2 Saturation ABG Base Excess ABG Hemoglobin ABG Oxyhemoglobin ABG Sodium ABG Potassium ABG Chloride ABG Glucose VBG pH Oxyhemoglobin Carboxyhemoglobin Sodium 149 H Potassium 3.3 L Chloride 95.3 L Carbon Dioxide 37 H BUN 29 H Creatinine 2.6 H Glucose POC Glucose Lactic Acid Calcium Phosphorus Magnesium Total Bilirubin AST 80 H ALT 59 H Ammonia Lactate Dehydrogenase Total Creatine Kinase CK-MB (CK-2) Troponin T 0.201 H* D NT-Pro-B Natriuret Pep Total Protein Albumin 3.6 L Triglycerides TSH Arterial Blood Glucose Arterial Blood Ionized Calcium Urine pH Urine WBC (Auto) Urine Creatinine 10/11/20 10/11/20 10/11/20 03:51 08:35 11:15 WBC RBC Hgb Hct RDW Lymph % (Auto) [place] % (Auto) Lymph # (Auto) [place] # (Auto) Seg Neutrophils % Lymphocytes % (Manual) Monocytes % (Manual) Seg Neutrophils # Seg Neutrophils # Man Lymphocytes # (Manual) Monocytes # (Manual) D-Dimer Heparin Anti-Xa Level 0.22 L ABG pH 7.491 H POC ABG pCO2 57.6 H POC ABG pO2 ABG pO2 ABG HCO3 ABG O2 Saturation ABG Base Excess ABG Hemoglobin ABG Oxyhemoglobin ABG Sodium 150.0 H ABG Potassium 3.1 L ABG Chloride 96.0 L ABG Glucose 122 H VBG pH Oxyhemoglobin Carboxyhemoglobin Sodium Potassium Chloride Carbon Dioxide BUN Creatinine Glucose POC Glucose 151 H Lactic Acid Calcium Phosphorus Magnesium Total Bilirubin AST ALT Ammonia Lactate Dehydrogenase Total Creatine Kinase CK-MB (CK-2) Troponin T NT-Pro-B Natriuret Pep Total Protein Albumin Triglycerides TSH Arterial Blood Glucose 122 H Arterial Blood Ionized Calcium 3.9 L Urine pH Urine WBC (Auto) Urine Creatinine 03/30/21 03/30/21 03/30/21 13:30 13:30 13:30 WBC 15.0 H RBC Hgb Hct RDW Lymph % (Auto) [place] % (Auto) Lymph # (Auto) [place] # (Auto) Seg Neutrophils % Lymphocytes % (Manual) Monocytes % (Manual) Seg Neutrophils # Seg Neutrophils # Man Lymphocytes # (Manual) Monocytes # (Manual) D-Dimer Heparin Anti-Xa Level ABG pH POC ABG pCO2 POC ABG pO2 ABG pO2 ABG HCO3 ABG O2 Saturation ABG Base Excess ABG Hemoglobin ABG Oxyhemoglobin ABG Sodium ABG Potassium ABG Chloride ABG Glucose VBG pH Oxyhemoglobin Carboxyhemoglobin Sodium Potassium Chloride Carbon Dioxide BUN Creatinine Glucose POC Glucose Lactic Acid Calcium Phosphorus Magnesium Total Bilirubin AST ALT Ammonia Lactate Dehydrogenase Total Creatine Kinase CK-MB (CK-2) Troponin T NT-Pro-B Natriuret Pep Total Protein Albumin Triglycerides TSH Arterial Blood Glucose Arterial Blood Ionized Calcium Urine pH 9.0 H Urine WBC (Auto) 18.0 H Urine Creatinine 80.5 H 10/11/20 10/11/20 10/12/20 17:17 23:14 03:53 WBC RBC Hgb Hct RDW Lymph % (Auto) [place] % (Auto) Lymph # (Auto) [place] # (Auto) Seg Neutrophils % Lymphocytes % (Manual) Monocytes % (Manual) Seg Neutrophils # Seg Neutrophils # Man Lymphocytes # (Manual) Monocytes # (Manual) D-Dimer Heparin Anti-Xa Level ABG pH 7.545 H POC ABG pCO2 54.6 H POC ABG pO2 231.9 H ABG pO2 ABG HCO3 ABG O2 Saturation ABG Base Excess ABG Hemoglobin ABG Oxyhemoglobin 98.5 H ABG Sodium 150.5 H ABG Potassium 3.2 L ABG Chloride 96.0 L ABG Glucose 148 H VBG pH Oxyhemoglobin Carboxyhemoglobin Sodium Potassium Chloride Carbon Dioxide BUN Creatinine Glucose POC Glucose 121 H 135 H Lactic Acid Calcium Phosphorus Magnesium Total Bilirubin AST ALT Ammonia Lactate Dehydrogenase Total Creatine Kinase CK-MB (CK-2) Troponin T NT-Pro-B Natriuret Pep Total Protein Albumin Triglycerides TSH Arterial Blood Glucose 148 H Arterial Blood Ionized Calcium 3.8 L Urine pH Urine WBC (Auto) Urine Creatinine 10/12/20 10/12/20 10/12/20 04:00 05:10 05:12 WBC 14.3 H RBC Hgb 11.6 L Hct 35.2 L RDW Lymph % (Auto) [place] % (Auto) Lymph # (Auto) [place] # (Auto) Seg Neutrophils % Lymphocytes % (Manual) Monocytes % (Manual) Seg Neutrophils # Seg Neutrophils # Man Lymphocytes # (Manual) Monocytes # (Manual) D-Dimer Heparin Anti-Xa Level ABG pH POC ABG pCO2 POC ABG pO2 ABG pO2 ABG HCO3 ABG O2 Saturation ABG Base Excess ABG Hemoglobin ABG Oxyhemoglobin ABG Sodium ABG Potassium ABG Chloride ABG Glucose VBG pH Oxyhemoglobin Carboxyhemoglobin Sodium 155 H Potassium 3.3 L Chloride 97.9 L Carbon Dioxide 47 H* D BUN 50 H Creatinine 3.4 H Glucose 146 H POC Glucose 137 H Lactic Acid Calcium 8.0 L Phosphorus Magnesium Total Bilirubin AST ALT Ammonia Lactate Dehydrogenase Total Creatine Kinase CK-MB (CK-2) Troponin T 0.125 H* D NT-Pro-B Natriuret Pep Total Protein Albumin Triglycerides TSH Arterial Blood Glucose Arterial Blood Ionized Calcium Urine pH Urine WBC (Auto) Urine Creatinine 10/12/20 10/12/20 10/12/20 11:39 16:01 19:49 WBC RBC Hgb Hct RDW Lymph % (Auto) [place] % (Auto) Lymph # (Auto) [place] # (Auto) Seg Neutrophils % Lymphocytes % (Manual) Monocytes % (Manual) Seg Neutrophils # Seg Neutrophils # Man Lymphocytes # (Manual) Monocytes # (Manual) D-Dimer Heparin Anti-Xa Level ABG pH POC ABG pCO2 POC ABG pO2 ABG pO2 ABG HCO3 ABG O2 Saturation ABG Base Excess ABG Hemoglobin ABG Oxyhemoglobin ABG Sodium ABG Potassium ABG Chloride ABG Glucose VBG pH Oxyhemoglobin Carboxyhemoglobin Sodium 157 H Potassium 3.3 L Chloride Carbon Dioxide 47 H* BUN 52 H Creatinine 3.0 H Glucose 137 H POC Glucose 138 H 119 H Lactic Acid Calcium 8.0 L Phosphorus Magnesium Total Bilirubin AST ALT Ammonia Lactate Dehydrogenase Total Creatine Kinase CK-MB (CK-2) Troponin T NT-Pro-B Natriuret Pep Total Protein Albumin Triglycerides TSH Arterial Blood Glucose Arterial Blood Ionized Calcium Urine pH Urine WBC (Auto) Urine Creatinine 10/12/20 10/13/20 10/13/20 23:37 02:28 04:52 WBC RBC Hgb Hct RDW Lymph % (Auto) [place] % (Auto) Lymph # (Auto) [place] # (Auto) Seg Neutrophils % Lymphocytes % (Manual) Monocytes % (Manual) Seg Neutrophils # Seg Neutrophils # Man Lymphocytes # (Manual) Monocytes # (Manual) D-Dimer Heparin Anti-Xa Level ABG pH 7.485 H POC ABG pCO2 57.1 H POC ABG pO2 ABG pO2 ABG HCO3 ABG O2 Saturation ABG Base Excess ABG Hemoglobin ABG Oxyhemoglobin ABG Sodium 152.4 H ABG Potassium ABG Chloride ABG Glucose 129 H VBG pH Oxyhemoglobin Carboxyhemoglobin Sodium 155 H Potassium Chloride Carbon Dioxide 45 H* BUN 52 H Creatinine 2.7 H Glucose 121 H POC Glucose 131 H Lactic Acid Calcium Phosphorus Magnesium 2.40 H Total Bilirubin AST ALT Ammonia Lactate Dehydrogenase Total Creatine Kinase CK-MB (CK-2) Troponin T NT-Pro-B Natriuret Pep Total Protein Albumin Triglycerides 278 H TSH Arterial Blood Glucose 129 H Arterial Blood Ionized Calcium 4.1 L Urine pH Urine WBC (Auto) Urine Creatinine 10/13/20 10/13/20 10/13/20 04:52 05:13 11:37 WBC 14.7 H RBC Hgb 11.7 L Hct RDW 15.8 H Lymph % (Auto) [place] % (Auto) Lymph # (Auto) [place] # (Auto) Seg Neutrophils % Lymphocytes % (Manual) Monocytes % (Manual) Seg Neutrophils # Seg Neutrophils # Man Lymphocytes # (Manual) Monocytes # (Manual) D-Dimer Heparin Anti-Xa Level ABG pH POC ABG pCO2 POC ABG pO2 ABG pO2 ABG HCO3 ABG O2 Saturation ABG Base Excess ABG Hemoglobin ABG Oxyhemoglobin ABG Sodium ABG Potassium ABG Chloride ABG Glucose VBG pH Oxyhemoglobin Carboxyhemoglobin Sodium Potassium Chloride Carbon Dioxide BUN Creatinine Glucose POC Glucose 116 H 116 H Lactic Acid Calcium Phosphorus Magnesium Total Bilirubin AST ALT Ammonia Lactate Dehydrogenase Total Creatine Kinase CK-MB (CK-2) Troponin T NT-Pro-B Natriuret Pep Total Protein Albumin Triglycerides TSH Arterial Blood Glucose Arterial Blood Ionized Calcium Urine pH Urine WBC (Auto) Urine Creatinine 10/13/20 10/14/20 10/14/20 17:50 03:45 04:46 WBC 11.1 H RBC Hgb Hct RDW 15.3 H Lymph % (Auto) [place] % (Auto) Lymph # (Auto) [place] # (Auto) Seg Neutrophils % Lymphocytes % (Manual) Monocytes % (Manual) Seg Neutrophils # Seg Neutrophils # Man Lymphocytes # (Manual) Monocytes # (Manual) D-Dimer Heparin Anti-Xa Level ABG pH POC ABG pCO2 59.6 H POC ABG pO2 ABG pO2 ABG HCO3 ABG O2 Saturation ABG Base Excess ABG Hemoglobin ABG Oxyhemoglobin ABG Sodium 151.4 H ABG Potassium 3.3 L ABG Chloride ABG Glucose 138 H VBG pH Oxyhemoglobin Carboxyhemoglobin 1.6 H Sodium Potassium Chloride Carbon Dioxide BUN Creatinine Glucose POC Glucose 140 H Lactic Acid Calcium Phosphorus Magnesium Total Bilirubin AST ALT Ammonia Lactate Dehydrogenase Total Creatine Kinase CK-MB (CK-2) Troponin T NT-Pro-B Natriuret Pep Total Protein Albumin Triglycerides TSH Arterial Blood Glucose 138 H Arterial Blood Ionized Calcium 4.5 L Urine pH Urine WBC (Auto) Urine Creatinine 10/14/20 10/14/20 10/14/20 04:46 05:10 11:11 WBC RBC Hgb Hct RDW Lymph % (Auto) [place] % (Auto) Lymph # (Auto) [place] # (Auto) Seg Neutrophils % Lymphocytes % (Manual) Monocytes % (Manual) Seg Neutrophils # Seg Neutrophils # Man Lymphocytes # (Manual) Monocytes # (Manual) D-Dimer Heparin Anti-Xa Level ABG pH POC ABG pCO2 POC ABG pO2 ABG pO2 ABG HCO3 ABG O2 Saturation ABG Base Excess ABG Hemoglobin ABG Oxyhemoglobin ABG Sodium ABG Potassium ABG Chloride ABG Glucose VBG pH Oxyhemoglobin Carboxyhemoglobin Sodium 152 H Potassium 3.5 L Chloride Carbon Dioxide 38 H D BUN 46 H Creatinine 2.3 H Glucose 127 H POC Glucose 116 H 114 H Lactic Acid Calcium Phosphorus Magnesium Total Bilirubin AST ALT Ammonia Lactate Dehydrogenase Total Creatine Kinase CK-MB (CK-2) Troponin T NT-Pro-B Natriuret Pep Total Protein Albumin Triglycerides TSH Arterial Blood Glucose Arterial Blood Ionized Calcium Urine pH Urine WBC (Auto) Urine Creatinine 10/14/20 10/14/20 10/15/20 18:53 23:23 04:12 WBC RBC Hgb Hct RDW Lymph % (Auto) [place] % (Auto) Lymph # (Auto) [place] # (Auto) Seg Neutrophils % Lymphocytes % (Manual) Monocytes % (Manual) Seg Neutrophils # Seg Neutrophils # Man Lymphocytes # (Manual) Monocytes # (Manual) D-Dimer Heparin Anti-Xa Level ABG pH POC ABG pCO2 POC ABG pO2 ABG pO2 ABG HCO3 ABG O2 Saturation ABG Base Excess ABG Hemoglobin ABG Oxyhemoglobin ABG Sodium ABG Potassium ABG Chloride ABG Glucose VBG pH Oxyhemoglobin Carboxyhemoglobin Sodium 149 H Potassium 3.2 L Chloride Carbon Dioxide 37 H BUN 40 H Creatinine 2.0 H Glucose 124 H POC Glucose 128 H 113 H Lactic Acid Calcium Phosphorus Magnesium Total Bilirubin AST ALT Ammonia Lactate Dehydrogenase Total Creatine Kinase CK-MB (CK-2) Troponin T NT-Pro-B Natriuret Pep Total Protein Albumin Triglycerides TSH Arterial Blood Glucose Arterial Blood Ionized Calcium Urine pH Urine WBC (Auto) Urine Creatinine 10/15/20 10/15/20 10/15/20 04:22 11:39 17:36 WBC RBC Hgb Hct RDW Lymph % (Auto) [place] % (Auto) Lymph # (Auto) [place] # (Auto) Seg Neutrophils % Lymphocytes % (Manual) Monocytes % (Manual) Seg Neutrophils # Seg Neutrophils # Man Lymphocytes # (Manual) Monocytes # (Manual) D-Dimer Heparin Anti-Xa Level ABG pH POC ABG pCO2 POC ABG pO2 ABG pO2 115.0 H ABG HCO3 38.1 H ABG O2 Saturation ABG Base Excess 11.3 H ABG Hemoglobin 11.0 L ABG Oxyhemoglobin ABG Sodium ABG Potassium ABG Chloride ABG Glucose VBG pH Oxyhemoglobin Carboxyhemoglobin Sodium Potassium Chloride Carbon Dioxide BUN Creatinine Glucose POC Glucose 123 H 118 H Lactic Acid Calcium Phosphorus Magnesium Total Bilirubin AST ALT Ammonia Lactate Dehydrogenase Total Creatine Kinase CK-MB (CK-2) Troponin T NT-Pro-B Natriuret Pep Total Protein Albumin Triglycerides TSH Arterial Blood Glucose Arterial Blood Ionized Calcium Urine pH Urine WBC (Auto) Urine Creatinine 10/15/20 10/16/20 10/16/20 23:18 03:13 05:10 WBC RBC Hgb Hct RDW Lymph % (Auto) [place] % (Auto) Lymph # (Auto) [place] # (Auto) Seg Neutrophils % Lymphocytes % (Manual) Monocytes % (Manual) Seg Neutrophils # Seg Neutrophils # Man Lymphocytes # (Manual) Monocytes # (Manual) D-Dimer Heparin Anti-Xa Level ABG pH POC ABG pCO2 POC ABG pO2 ABG pO2 104.5 H ABG HCO3 35.1 H ABG O2 Saturation ABG Base Excess 9.5 H ABG Hemoglobin 7.9 L ABG Oxyhemoglobin ABG Sodium ABG Potassium ABG Chloride ABG Glucose VBG pH Oxyhemoglobin Carboxyhemoglobin Sodium Potassium 3.3 L Chloride Carbon Dioxide 33 H BUN 37 H Creatinine 1.4 H Glucose 148 H POC Glucose 135 H Lactic Acid Calcium Phosphorus Magnesium 2.40 H Total Bilirubin AST ALT Ammonia Lactate Dehydrogenase Total Creatine Kinase CK-MB (CK-2) Troponin T NT-Pro-B Natriuret Pep Total Protein Albumin Triglycerides TSH Arterial Blood Glucose Arterial Blood Ionized Calcium Urine pH Urine WBC (Auto) Urine Creatinine 10/16/20 10/16/20 10/16/20 06:36 11:08 17:07 WBC RBC Hgb Hct RDW Lymph % (Auto) [place] % (Auto) Lymph # (Auto) [place] # (Auto) Seg Neutrophils % Lymphocytes % (Manual) Monocytes % (Manual) Seg Neutrophils # Seg Neutrophils # Man Lymphocytes # (Manual) Monocytes # (Manual) D-Dimer Heparin Anti-Xa Level ABG pH POC ABG pCO2 POC ABG pO2 ABG pO2 ABG HCO3 ABG O2 Saturation ABG Base Excess ABG Hemoglobin ABG Oxyhemoglobin ABG Sodium ABG Potassium ABG Chloride ABG Glucose VBG pH Oxyhemoglobin Carboxyhemoglobin Sodium Potassium Chloride Carbon Dioxide BUN Creatinine Glucose POC Glucose 150 H 111 H 132 H Lactic Acid Calcium Phosphorus Magnesium Total Bilirubin AST ALT Ammonia Lactate Dehydrogenase Total Creatine Kinase CK-MB (CK-2) Troponin T NT-Pro-B Natriuret Pep Total Protein Albumin Triglycerides TSH Arterial Blood Glucose Arterial Blood Ionized Calcium Urine pH Urine WBC (Auto) Urine Creatinine 10/16/20 10/17/20 10/17/20 23:38 03:32 03:32 WBC RBC Hgb Hct RDW Lymph % (Auto) [place] % (Auto) Lymph # (Auto) [place] # (Auto) Seg Neutrophils % Lymphocytes % (Manual) Monocytes % (Manual) Seg Neutrophils # Seg Neutrophils # Man Lymphocytes # (Manual) Monocytes # (Manual) D-Dimer Heparin Anti-Xa Level ABG pH POC ABG pCO2 POC ABG pO2 ABG pO2 ABG HCO3 ABG O2 Saturation ABG Base Excess ABG Hemoglobin ABG Oxyhemoglobin ABG Sodium ABG Potassium ABG Chloride ABG Glucose VBG pH Oxyhemoglobin Carboxyhemoglobin Sodium 146 H Potassium Chloride Carbon Dioxide 32 H BUN 57 H Creatinine 2.4 H D Glucose 124 H POC Glucose 117 H Lactic Acid Calcium Phosphorus 5.20 H D Magnesium Total Bilirubin AST ALT Ammonia Lactate Dehydrogenase Total Creatine Kinase CK-MB (CK-2) Troponin T NT-Pro-B Natriuret Pep Total Protein Albumin Triglycerides TSH Arterial Blood Glucose Arterial Blood Ionized Calcium Urine pH Urine WBC (Auto) Urine Creatinine 10/17/20 10/17/20 10/18/20 05:10 17:33 00:13 WBC RBC Hgb Hct RDW Lymph % (Auto) [place] % (Auto) Lymph # (Auto) [place] # (Auto) Seg Neutrophils % Lymphocytes % (Manual) Monocytes % (Manual) Seg Neutrophils # Seg Neutrophils # Man Lymphocytes # (Manual) Monocytes # (Manual) D-Dimer Heparin Anti-Xa Level ABG pH POC ABG pCO2 POC ABG pO2 ABG pO2 ABG HCO3 ABG O2 Saturation ABG Base Excess ABG Hemoglobin ABG Oxyhemoglobin ABG Sodium ABG Potassium ABG Chloride ABG Glucose VBG pH Oxyhemoglobin Carboxyhemoglobin Sodium Potassium Chloride Carbon Dioxide BUN Creatinine Glucose POC Glucose 122 H 121 H 23 L Lactic Acid Calcium Phosphorus Magnesium Total Bilirubin AST ALT Ammonia Lactate Dehydrogenase Total Creatine Kinase CK-MB (CK-2) Troponin T NT-Pro-B Natriuret Pep Total Protein Albumin Triglycerides TSH Arterial Blood Glucose Arterial Blood Ionized Calcium Urine pH Urine WBC (Auto) Urine Creatinine 10/18/20 10/18/20 10/18/20 00:16 03:27 03:27 WBC RBC Hgb 11.7 L Hct RDW Lymph % (Auto) [place] % (Auto) Lymph # (Auto) [place] # (Auto) Seg Neutrophils % Lymphocytes % (Manual) Monocytes % (Manual) Seg Neutrophils # Seg Neutrophils # Man Lymphocytes # (Manual) Monocytes # (Manual) D-Dimer Heparin Anti-Xa Level ABG pH POC ABG pCO2 POC ABG pO2 ABG pO2 ABG HCO3 ABG O2 Saturation ABG Base Excess ABG Hemoglobin ABG Oxyhemoglobin ABG Sodium ABG Potassium ABG Chloride ABG Glucose VBG pH Oxyhemoglobin Carboxyhemoglobin Sodium Potassium Chloride 97.6 L Carbon Dioxide BUN 90 H Creatinine 3.3 H Glucose 146 H POC Glucose 134 H Lactic Acid Calcium Phosphorus Magnesium Total Bilirubin 1.70 H AST ALT Ammonia Lactate Dehydrogenase Total Creatine Kinase CK-MB (CK-2) Troponin T NT-Pro-B Natriuret Pep Total Protein Albumin 3.1 L Triglycerides TSH Arterial Blood Glucose Arterial Blood Ionized Calcium Urine pH Urine WBC (Auto) Urine Creatinine 10/18/20 10/18/20 10/18/20 05:09 11:19 17:15 WBC RBC Hgb Hct RDW Lymph % (Auto) [place] % (Auto) Lymph # (Auto) [place] # (Auto) Seg Neutrophils % Lymphocytes % (Manual) Monocytes % (Manual) Seg Neutrophils # Seg Neutrophils # Man Lymphocytes # (Manual) Monocytes # (Manual) D-Dimer Heparin Anti-Xa Level ABG pH POC ABG pCO2 POC ABG pO2 ABG pO2 ABG HCO3 ABG O2 Saturation ABG Base Excess ABG Hemoglobin ABG Oxyhemoglobin ABG Sodium ABG Potassium ABG Chloride ABG Glucose VBG pH Oxyhemoglobin Carboxyhemoglobin Sodium Potassium Chloride Carbon Dioxide BUN Creatinine Glucose POC Glucose 144 H 145 H 151 H Lactic Acid Calcium Phosphorus Magnesium Total Bilirubin AST ALT Ammonia Lactate Dehydrogenase Total Creatine Kinase CK-MB (CK-2) Troponin T NT-Pro-B Natriuret Pep Total Protein Albumin Triglycerides TSH Arterial Blood Glucose Arterial Blood Ionized Calcium Urine pH Urine WBC (Auto) Urine Creatinine 10/18/20 10/18/20 10/19/20 23:16 Unknown 04:55 WBC RBC Hgb Hct RDW Lymph % (Auto) [place] % (Auto) Lymph # (Auto) [place] # (Auto) Seg Neutrophils % Lymphocytes % (Manual) Monocytes % (Manual) Seg Neutrophils # Seg Neutrophils # Man Lymphocytes # (Manual) Monocytes # (Manual) D-Dimer Heparin Anti-Xa Level ABG pH POC ABG pCO2 POC ABG pO2 ABG pO2 ABG HCO3 ABG O2 Saturation ABG Base Excess ABG Hemoglobin ABG Oxyhemoglobin ABG Sodium ABG Potassium ABG Chloride ABG Glucose VBG pH Oxyhemoglobin Carboxyhemoglobin Sodium Potassium Chloride Carbon Dioxide BUN 104 H Creatinine 3.1 H Glucose 139 H POC Glucose 123 H Lactic Acid Calcium Phosphorus Magnesium Total Bilirubin AST ALT Ammonia Lactate Dehydrogenase Total Creatine Kinase CK-MB (CK-2) Troponin T NT-Pro-B Natriuret Pep Total Protein Albumin Triglycerides TSH Arterial Blood Glucose Arterial Blood Ionized Calcium Urine pH Urine WBC (Auto) 115.0 H Urine Creatinine 10/19/20 10/19/20 10/19/20 04:55 11:35 13:14 WBC 15.1 H RBC Hgb 11.1 L Hct 34.4 L RDW Lymph % (Auto) 4.2 L [place] % (Auto) 11.9 H Lymph # (Auto) 0.6 L [place] # (Auto) 1.8 H Seg Neutrophils % 82.0 H Lymphocytes % (Manual) Monocytes % (Manual) Seg Neutrophils # 12.4 H Seg Neutrophils # Man Lymphocytes # (Manual) Monocytes # (Manual) D-Dimer Heparin Anti-Xa Level ABG pH POC ABG pCO2 POC ABG pO2 ABG pO2 ABG HCO3 ABG O2 Saturation ABG Base Excess ABG Hemoglobin ABG Oxyhemoglobin ABG Sodium ABG Potassium ABG Chloride ABG Glucose VBG pH Oxyhemoglobin Carboxyhemoglobin Sodium Potassium Chloride Carbon Dioxide BUN Creatinine Glucose POC Glucose 136 H Lactic Acid Calcium Phosphorus Magnesium Total Bilirubin AST ALT Ammonia Lactate Dehydrogenase Total Creatine Kinase CK-MB (CK-2) Troponin T NT-Pro-B Natriuret Pep Total Protein Albumin Triglycerides TSH Arterial Blood Glucose Arterial Blood Ionized Calcium Urine pH Urine WBC (Auto) Urine Creatinine 93.7 H 10/19/20 10/19/20 10/20/20 17:53 23:39 04:30 WBC RBC Hgb Hct RDW Lymph % (Auto) [place] % (Auto) Lymph # (Auto) [place] # (Auto) Seg Neutrophils % Lymphocytes % (Manual) Monocytes % (Manual) Seg Neutrophils # Seg Neutrophils # Man Lymphocytes # (Manual) Monocytes # (Manual) D-Dimer Heparin Anti-Xa Level ABG pH POC ABG pCO2 POC ABG pO2 ABG pO2 ABG HCO3 ABG O2 Saturation ABG Base Excess ABG Hemoglobin ABG Oxyhemoglobin ABG Sodium ABG Potassium ABG Chloride ABG Glucose VBG pH Oxyhemoglobin Carboxyhemoglobin Sodium Potassium Chloride Carbon Dioxide BUN 104 H Creatinine 2.8 H Glucose 151 H POC Glucose 137 H 133 H Lactic Acid Calcium Phosphorus Magnesium Total Bilirubin AST ALT Ammonia Lactate Dehydrogenase Total Creatine Kinase CK-MB (CK-2) Troponin T NT-Pro-B Natriuret Pep Total Protein Albumin Triglycerides TSH Arterial Blood Glucose Arterial Blood Ionized Calcium Urine pH Urine WBC (Auto) Urine Creatinine 10/20/20 10/20/20 10/20/20 04:30 05:38 11:34 WBC 17.9 H RBC Hgb 11.7 L Hct RDW Lymph % (Auto) [place] % (Auto) Lymph # (Auto) [place] # (Auto) Seg Neutrophils % Lymphocytes % (Manual) Monocytes % (Manual) Seg Neutrophils # Seg Neutrophils # Man Lymphocytes # (Manual) Monocytes # (Manual) D-Dimer Heparin Anti-Xa Level ABG pH POC ABG pCO2 POC ABG pO2 ABG pO2 ABG HCO3 ABG O2 Saturation ABG Base Excess ABG Hemoglobin ABG Oxyhemoglobin ABG Sodium ABG Potassium ABG Chloride ABG Glucose VBG pH Oxyhemoglobin Carboxyhemoglobin Sodium Potassium Chloride Carbon Dioxide BUN Creatinine Glucose POC Glucose 164 H 148 H Lactic Acid Calcium Phosphorus Magnesium Total Bilirubin AST ALT Ammonia Lactate Dehydrogenase Total Creatine Kinase CK-MB (CK-2) Troponin T NT-Pro-B Natriuret Pep Total Protein Albumin Triglycerides TSH Arterial Blood Glucose Arterial Blood Ionized Calcium Urine pH Urine WBC (Auto) Urine Creatinine 10/20/20 10/20/20 10/20/20 17:40 20:20 23:29 WBC RBC Hgb Hct RDW Lymph % (Auto) [place] % (Auto) Lymph # (Auto) [place] # (Auto) Seg Neutrophils % Lymphocytes % (Manual) Monocytes % (Manual) Seg Neutrophils # Seg Neutrophils # Man Lymphocytes # (Manual) Monocytes # (Manual) D-Dimer Heparin Anti-Xa Level ABG pH 7.292 L POC ABG pCO2 68.5 H POC ABG pO2 ABG pO2 ABG HCO3 ABG O2 Saturation ABG Base Excess ABG Hemoglobin 11.6 L ABG Oxyhemoglobin ABG Sodium ABG Potassium ABG Chloride ABG Glucose 145 H VBG pH Oxyhemoglobin Carboxyhemoglobin Sodium Potassium Chloride Carbon Dioxide BUN Creatinine Glucose POC Glucose 130 H 136 H Lactic Acid Calcium Phosphorus Magnesium Total Bilirubin AST ALT Ammonia Lactate Dehydrogenase Total Creatine Kinase CK-MB (CK-2) Troponin T NT-Pro-B Natriuret Pep Total Protein Albumin Triglycerides TSH Arterial Blood Glucose 145 H Arterial Blood Ionized Calcium Urine pH Urine WBC (Auto) Urine Creatinine 10/21/20 10/21/20 10/21/20 04:20 06:26 06:30 WBC RBC Hgb Hct RDW Lymph % (Auto) [place] % (Auto) Lymph # (Auto) [place] # (Auto) Seg Neutrophils % Lymphocytes % (Manual) Monocytes % (Manual) Seg Neutrophils # Seg Neutrophils # Man Lymphocytes # (Manual) Monocytes # (Manual) D-Dimer Heparin Anti-Xa Level ABG pH 7.262 L POC ABG pCO2 72.4 H POC ABG pO2 81.6 L ABG pO2 ABG HCO3 ABG O2 Saturation ABG Base Excess ABG Hemoglobin 11.6 L ABG Oxyhemoglobin ABG Sodium ABG Potassium ABG Chloride ABG Glucose 140 H VBG pH Oxyhemoglobin Carboxyhemoglobin Sodium Potassium Chloride Carbon Dioxide 33 H BUN 104 H Creatinine 2.9 H Glucose 153 H POC Glucose 128 H Lactic Acid Calcium Phosphorus Magnesium Total Bilirubin AST ALT Ammonia Lactate Dehydrogenase Total Creatine Kinase CK-MB (CK-2) Troponin T NT-Pro-B Natriuret Pep Total Protein Albumin Triglycerides TSH Arterial Blood Glucose 140 H Arterial Blood Ionized Calcium Urine pH Urine WBC (Auto) Urine Creatinine 10/21/20 10/21/20 10/21/20 06:30 11:24 17:21 WBC 13.3 H RBC Hgb 10.7 L Hct 32.7 L RDW Lymph % (Auto) [place] % (Auto) Lymph # (Auto) [place] # (Auto) Seg Neutrophils % Lymphocytes % (Manual) Monocytes % (Manual) Seg Neutrophils # Seg Neutrophils # Man Lymphocytes # (Manual) Monocytes # (Manual) D-Dimer Heparin Anti-Xa Level ABG pH POC ABG pCO2 POC ABG pO2 ABG pO2 ABG HCO3 ABG O2 Saturation ABG Base Excess ABG Hemoglobin ABG Oxyhemoglobin ABG Sodium ABG Potassium ABG Chloride ABG Glucose VBG pH Oxyhemoglobin Carboxyhemoglobin Sodium Potassium Chloride Carbon Dioxide BUN Creatinine Glucose POC Glucose 178 H 138 H Lactic Acid Calcium Phosphorus Magnesium Total Bilirubin AST ALT Ammonia Lactate Dehydrogenase Total Creatine Kinase CK-MB (CK-2) Troponin T NT-Pro-B Natriuret Pep Total Protein Albumin Triglycerides TSH Arterial Blood Glucose Arterial Blood Ionized Calcium Urine pH Urine WBC (Auto) Urine Creatinine 10/22/20 10/22/20 10/22/20 00:05 04:30 06:15 WBC RBC Hgb Hct RDW Lymph % (Auto) [place] % (Auto) Lymph # (Auto) [place] # (Auto) Seg Neutrophils % Lymphocytes % (Manual) Monocytes % (Manual) Seg Neutrophils # Seg Neutrophils # Man Lymphocytes # (Manual) Monocytes # (Manual) D-Dimer Heparin Anti-Xa Level ABG pH 7.225 L POC ABG pCO2 76.6 H POC ABG pO2 ABG pO2 ABG HCO3 ABG O2 Saturation ABG Base Excess ABG Hemoglobin 11.1 L ABG Oxyhemoglobin ABG Sodium ABG Potassium ABG Chloride ABG Glucose 151 H VBG pH Oxyhemoglobin Carboxyhemoglobin Sodium Potassium Chloride Carbon Dioxide 32 H BUN 103 H Creatinine 2.7 H Glucose 151 H POC Glucose 135 H Lactic Acid Calcium Phosphorus Magnesium Total Bilirubin AST ALT Ammonia Lactate Dehydrogenase Total Creatine Kinase CK-MB (CK-2) Troponin T NT-Pro-B Natriuret Pep Total Protein Albumin Triglycerides TSH Arterial Blood Glucose 151 H Arterial Blood Ionized Calcium Urine pH Urine WBC (Auto) Urine Creatinine 10/22/20 10/22/20 10/22/20 06:18 11:34 11:44 WBC RBC Hgb Hct RDW Lymph % (Auto) [place] % (Auto) Lymph # (Auto) [place] # (Auto) Seg Neutrophils % Lymphocytes % (Manual) Monocytes % (Manual) Seg Neutrophils # Seg Neutrophils # Man Lymphocytes # (Manual) Monocytes # (Manual) D-Dimer Heparin Anti-Xa Level ABG pH 7.278 L POC ABG pCO2 67.8 H POC ABG pO2 ABG pO2 ABG HCO3 ABG O2 Saturation ABG Base Excess ABG Hemoglobin 10.2 L ABG Oxyhemoglobin ABG Sodium ABG Potassium ABG Chloride ABG Glucose 172 H VBG pH Oxyhemoglobin Carboxyhemoglobin Sodium Potassium Chloride Carbon Dioxide BUN Creatinine Glucose POC Glucose 137 H 147 H Lactic Acid Calcium Phosphorus Magnesium Total Bilirubin AST ALT Ammonia Lactate Dehydrogenase Total Creatine Kinase CK-MB (CK-2) Troponin T NT-Pro-B Natriuret Pep Total Protein Albumin Triglycerides TSH Arterial Blood Glucose 172 H Arterial Blood Ionized Calcium Urine pH Urine WBC (Auto) Urine Creatinine 10/22/20 10/22/20 10/23/20 17:40 23:55 05:11 WBC RBC Hgb Hct RDW Lymph % (Auto) [place] % (Auto) Lymph # (Auto) [place] # (Auto) Seg Neutrophils % Lymphocytes % (Manual) Monocytes % (Manual) Seg Neutrophils # Seg Neutrophils # Man Lymphocytes # (Manual) Monocytes # (Manual) D-Dimer Heparin Anti-Xa Level ABG pH POC ABG pCO2 63.6 H POC ABG pO2 81.2 L ABG pO2 ABG HCO3 ABG O2 Saturation ABG Base Excess ABG Hemoglobin 10.6 L ABG Oxyhemoglobin ABG Sodium ABG Potassium ABG Chloride 109.0 H ABG Glucose 149 H VBG pH Oxyhemoglobin Carboxyhemoglobin Sodium Potassium Chloride Carbon Dioxide BUN Creatinine Glucose POC Glucose 141 H 139 H Lactic Acid Calcium Phosphorus Magnesium Total Bilirubin AST ALT Ammonia Lactate Dehydrogenase Total Creatine Kinase CK-MB (CK-2) Troponin T NT-Pro-B Natriuret Pep Total Protein Albumin Triglycerides TSH Arterial Blood Glucose 149 H Arterial Blood Ionized Calcium Urine pH Urine WBC (Auto) Urine Creatinine 10/23/20 10/23/20 10/23/20 05:39 06:00 11:32 WBC RBC Hgb Hct RDW Lymph % (Auto) [place] % (Auto) Lymph # (Auto) [place] # (Auto) Seg Neutrophils % Lymphocytes % (Manual) Monocytes % (Manual) Seg Neutrophils # Seg Neutrophils # Man Lymphocytes # (Manual) Monocytes # (Manual) D-Dimer Heparin Anti-Xa Level ABG pH POC ABG pCO2 POC ABG pO2 ABG pO2 ABG HCO3 ABG O2 Saturation ABG Base Excess ABG Hemoglobin ABG Oxyhemoglobin ABG Sodium ABG Potassium ABG Chloride ABG Glucose VBG pH Oxyhemoglobin Carboxyhemoglobin Sodium 146 H Potassium Chloride Carbon Dioxide 35 H BUN 92 H Creatinine 2.0 H Glucose 144 H POC Glucose 139 H 176 H Lactic Acid Calcium Phosphorus Magnesium Total Bilirubin AST ALT Ammonia Lactate Dehydrogenase Total Creatine Kinase CK-MB (CK-2) Troponin T NT-Pro-B Natriuret Pep Total Protein Albumin Triglycerides TSH Arterial Blood Glucose Arterial Blood Ionized Calcium Urine pH Urine WBC (Auto) Urine Creatinine 10/23/20 10/23/20 10/24/20 11:34 17:55 05:33 WBC RBC Hgb Hct RDW Lymph % (Auto) [place] % (Auto) Lymph # (Auto) [place] # (Auto) Seg Neutrophils % Lymphocytes % (Manual) Monocytes % (Manual) Seg Neutrophils # Seg Neutrophils # Man Lymphocytes # (Manual) Monocytes # (Manual) D-Dimer Heparin Anti-Xa Level ABG pH POC ABG pCO2 POC ABG pO2 ABG pO2 ABG HCO3 ABG O2 Saturation ABG Base Excess ABG Hemoglobin ABG Oxyhemoglobin ABG Sodium ABG Potassium ABG Chloride ABG Glucose VBG pH Oxyhemoglobin Carboxyhemoglobin Sodium 147 H Potassium Chloride Carbon Dioxide 32 H BUN 76 H Creatinine 1.7 H Glucose 172 H POC Glucose 173 H 135 H Lactic Acid Calcium Phosphorus Magnesium Total Bilirubin AST ALT Ammonia Lactate Dehydrogenase Total Creatine Kinase CK-MB (CK-2) Troponin T NT-Pro-B Natriuret Pep Total Protein Albumin Triglycerides TSH Arterial Blood Glucose Arterial Blood Ionized Calcium Urine pH Urine WBC (Auto) Urine Creatinine 10/24/20 10/24/20 10/24/20 05:41 12:09 18:09 WBC RBC Hgb Hct RDW Lymph % (Auto) [place] % (Auto) Lymph # (Auto) [place] # (Auto) Seg Neutrophils % Lymphocytes % (Manual) Monocytes % (Manual) Seg Neutrophils # Seg Neutrophils # Man Lymphocytes # (Manual) Monocytes # (Manual) D-Dimer Heparin Anti-Xa Level ABG pH POC ABG pCO2 POC ABG pO2 ABG pO2 ABG HCO3 ABG O2 Saturation ABG Base Excess ABG Hemoglobin ABG Oxyhemoglobin ABG Sodium ABG Potassium ABG Chloride ABG Glucose VBG pH Oxyhemoglobin Carboxyhemoglobin Sodium Potassium Chloride Carbon Dioxide BUN Creatinine Glucose POC Glucose 156 H 154 H 132 H Lactic Acid Calcium Phosphorus Magnesium Total Bilirubin AST ALT Ammonia Lactate Dehydrogenase Total Creatine Kinase CK-MB (CK-2) Troponin T NT-Pro-B Natriuret Pep Total Protein Albumin Triglycerides TSH Arterial Blood Glucose Arterial Blood Ionized Calcium Urine pH Urine WBC (Auto) Urine Creatinine 10/24/20 10/25/20 10/25/20 23:39 05:29 08:55 WBC RBC Hgb Hct RDW Lymph % (Auto) [place] % (Auto) Lymph # (Auto) [place] # (Auto) Seg Neutrophils % Lymphocytes % (Manual) Monocytes % (Manual) Seg Neutrophils # Seg Neutrophils # Man Lymphocytes # (Manual) Monocytes # (Manual) D-Dimer Heparin Anti-Xa Level ABG pH POC ABG pCO2 POC ABG pO2 ABG pO2 ABG HCO3 ABG O2 Saturation ABG Base Excess ABG Hemoglobin ABG Oxyhemoglobin ABG Sodium ABG Potassium ABG Chloride ABG Glucose VBG pH Oxyhemoglobin Carboxyhemoglobin Sodium 150 H Potassium Chloride 108.3 H Carbon Dioxide 32 H BUN 57 H Creatinine 1.5 H Glucose 142 H POC Glucose 131 H 142 H Lactic Acid Calcium Phosphorus Magnesium Total Bilirubin AST ALT Ammonia Lactate Dehydrogenase Total Creatine Kinase CK-MB (CK-2) Troponin T NT-Pro-B Natriuret Pep Total Protein Albumin Triglycerides TSH Arterial Blood Glucose Arterial Blood Ionized Calcium Urine pH Urine WBC (Auto) Urine Creatinine 10/25/20 10/25/20 10/25/20 08:55 11:08 18:10 WBC 14.3 H RBC 3.57 L Hgb 10.3 L Hct 31.6 L RDW Lymph % (Auto) [place] % (Auto) Lymph # (Auto) [place] # (Auto) Seg Neutrophils % Lymphocytes % (Manual) Monocytes % (Manual) Seg Neutrophils # Seg Neutrophils # Man Lymphocytes # (Manual) Monocytes # (Manual) D-Dimer Heparin Anti-Xa Level ABG pH POC ABG pCO2 52.3 H POC ABG pO2 ABG pO2 ABG HCO3 ABG O2 Saturation ABG Base Excess ABG Hemoglobin 11.2 L ABG Oxyhemoglobin ABG Sodium ABG Potassium ABG Chloride 108.0 H ABG Glucose 167 H VBG pH Oxyhemoglobin Carboxyhemoglobin Sodium Potassium Chloride Carbon Dioxide BUN Creatinine Glucose POC Glucose 157 H Lactic Acid Calcium Phosphorus Magnesium Total Bilirubin AST ALT Ammonia Lactate Dehydrogenase Total Creatine Kinase CK-MB (CK-2) Troponin T NT-Pro-B Natriuret Pep Total Protein Albumin Triglycerides TSH Arterial Blood Glucose 167 H Arterial Blood Ionized Calcium Urine pH Urine WBC (Auto) Urine Creatinine 10/25/20 10/26/20 10/26/20 18:20 00:20 06:08 WBC RBC Hgb Hct RDW Lymph % (Auto) [place] % (Auto) Lymph # (Auto) [place] # (Auto) Seg Neutrophils % Lymphocytes % (Manual) Monocytes % (Manual) Seg Neutrophils # Seg Neutrophils # Man Lymphocytes # (Manual) Monocytes # (Manual) D-Dimer Heparin Anti-Xa Level ABG pH POC ABG pCO2 POC ABG pO2 ABG pO2 ABG HCO3 ABG O2 Saturation ABG Base Excess ABG Hemoglobin ABG Oxyhemoglobin ABG Sodium ABG Potassium ABG Chloride ABG Glucose VBG pH Oxyhemoglobin Carboxyhemoglobin Sodium Potassium Chloride Carbon Dioxide BUN Creatinine Glucose POC Glucose 127 H 108 H 119 H Lactic Acid Calcium Phosphorus Magnesium Total Bilirubin AST ALT Ammonia Lactate Dehydrogenase Total Creatine Kinase CK-MB (CK-2) Troponin T NT-Pro-B Natriuret Pep Total Protein Albumin Triglycerides TSH Arterial Blood Glucose Arterial Blood Ionized Calcium Urine pH Urine WBC (Auto) Urine Creatinine 10/26/20 10/26/20 10/26/20 07:38 07:38 11:28 WBC 13.5 H RBC 3.37 L Hgb 9.8 L Hct 30.0 L RDW Lymph % (Auto) [place] % (Auto) Lymph # (Auto) [place] # (Auto) Seg Neutrophils % Lymphocytes % (Manual) Monocytes % (Manual) Seg Neutrophils # Seg Neutrophils # Man Lymphocytes # (Manual) Monocytes # (Manual) D-Dimer Heparin Anti-Xa Level ABG pH POC ABG pCO2 POC ABG pO2 ABG pO2 ABG HCO3 ABG O2 Saturation ABG Base Excess ABG Hemoglobin ABG Oxyhemoglobin ABG Sodium ABG Potassium ABG Chloride ABG Glucose VBG pH Oxyhemoglobin Carboxyhemoglobin Sodium 149 H Potassium Chloride 107.6 H Carbon Dioxide 34 H BUN 49 H Creatinine 1.4 H Glucose 137 H POC Glucose 148 H Lactic Acid Calcium Phosphorus Magnesium Total Bilirubin AST ALT Ammonia Lactate Dehydrogenase Total Creatine Kinase CK-MB (CK-2) Troponin T NT-Pro-B Natriuret Pep Total Protein Albumin Triglycerides TSH Arterial Blood Glucose Arterial Blood Ionized Calcium Urine pH Urine WBC (Auto) Urine Creatinine 10/26/20 10/26/20 10/27/20 18:17 23:37 05:08 WBC RBC Hgb Hct RDW Lymph % (Auto) [place] % (Auto) Lymph # (Auto) [place] # (Auto) Seg Neutrophils % Lymphocytes % (Manual) Monocytes % (Manual) Seg Neutrophils # Seg Neutrophils # Man Lymphocytes # (Manual) Monocytes # (Manual) D-Dimer Heparin Anti-Xa Level ABG pH POC ABG pCO2 POC ABG pO2 ABG pO2 ABG HCO3 ABG O2 Saturation ABG Base Excess ABG Hemoglobin ABG Oxyhemoglobin ABG Sodium ABG Potassium ABG Chloride ABG Glucose VBG pH Oxyhemoglobin Carboxyhemoglobin Sodium Potassium Chloride Carbon Dioxide BUN Creatinine Glucose POC Glucose 121 H 152 H 120 H Lactic Acid Calcium Phosphorus Magnesium Total Bilirubin AST ALT Ammonia Lactate Dehydrogenase Total Creatine Kinase CK-MB (CK-2) Troponin T NT-Pro-B Natriuret Pep Total Protein Albumin Triglycerides TSH Arterial Blood Glucose Arterial Blood Ionized Calcium Urine pH Urine WBC (Auto) Urine Creatinine 10/27/20 10/27/20 10/27/20 07:30 07:30 11:59 WBC RBC 3.46 L Hgb 10.2 L Hct 30.9 L RDW Lymph % (Auto) [place] % (Auto) Lymph # (Auto) [place] # (Auto) Seg Neutrophils % Lymphocytes % (Manual) Monocytes % (Manual) Seg Neutrophils # Seg Neutrophils # Man Lymphocytes # (Manual) Monocytes # (Manual) D-Dimer Heparin Anti-Xa Level ABG pH POC ABG pCO2 POC ABG pO2 ABG pO2 ABG HCO3 ABG O2 Saturation ABG Base Excess ABG Hemoglobin ABG Oxyhemoglobin ABG Sodium ABG Potassium ABG Chloride ABG Glucose VBG pH Oxyhemoglobin Carboxyhemoglobin Sodium 146 H Potassium Chloride Carbon Dioxide 34 H BUN 45 H Creatinine Glucose 131 H POC Glucose 143 H Lactic Acid Calcium Phosphorus Magnesium Total Bilirubin AST ALT Ammonia Lactate Dehydrogenase Total Creatine Kinase CK-MB (CK-2) Troponin T NT-Pro-B Natriuret Pep Total Protein Albumin Triglycerides TSH Arterial Blood Glucose Arterial Blood Ionized Calcium Urine pH Urine WBC (Auto) Urine Creatinine 10/27/20 10/27/20 10/28/20 18:52 23:03 07:00 WBC RBC Hgb Hct RDW Lymph % (Auto) [place] % (Auto) Lymph # (Auto) [place] # (Auto) Seg Neutrophils % Lymphocytes % (Manual) Monocytes % (Manual) Seg Neutrophils # Seg Neutrophils # Man Lymphocytes # (Manual) Monocytes # (Manual) D-Dimer Heparin Anti-Xa Level ABG pH POC ABG pCO2 POC ABG pO2 ABG pO2 ABG HCO3 ABG O2 Saturation ABG Base Excess ABG Hemoglobin ABG Oxyhemoglobin ABG Sodium ABG Potassium ABG Chloride ABG Glucose VBG pH Oxyhemoglobin Carboxyhemoglobin Sodium 147 H Potassium Chloride Carbon Dioxide 35 H BUN 39 H Creatinine Glucose 133 H POC Glucose 119 H 158 H Lactic Acid Calcium Phosphorus Magnesium Total Bilirubin AST ALT Ammonia Lactate Dehydrogenase Total Creatine Kinase CK-MB (CK-2) Troponin T NT-Pro-B Natriuret Pep Total Protein Albumin Triglycerides TSH Arterial Blood Glucose Arterial Blood Ionized Calcium Urine pH Urine WBC (Auto) Urine Creatinine 10/28/20 10/28/20 10/28/20 09:00 11:47 17:15 WBC 12.5 H RBC 3.58 L Hgb 10.5 L Hct 32.1 L RDW Lymph % (Auto) [place] % (Auto) Lymph # (Auto) [place] # (Auto) Seg Neutrophils % Lymphocytes % (Manual) Monocytes % (Manual) Seg Neutrophils # Seg Neutrophils # Man Lymphocytes # (Manual) Monocytes # (Manual) D-Dimer Heparin Anti-Xa Level ABG pH POC ABG pCO2 POC ABG pO2 ABG pO2 ABG HCO3 ABG O2 Saturation ABG Base Excess ABG Hemoglobin ABG Oxyhemoglobin ABG Sodium ABG Potassium ABG Chloride ABG Glucose VBG pH Oxyhemoglobin Carboxyhemoglobin Sodium Potassium Chloride Carbon Dioxide BUN Creatinine Glucose POC Glucose 129 H 109 H Lactic Acid Calcium Phosphorus Magnesium Total Bilirubin AST ALT Ammonia Lactate Dehydrogenase Total Creatine Kinase CK-MB (CK-2) Troponin T NT-Pro-B Natriuret Pep Total Protein Albumin Triglycerides TSH Arterial Blood Glucose Arterial Blood Ionized Calcium Urine pH Urine WBC (Auto) Urine Creatinine 10/28/20 10/29/20 10/29/20 23:31 04:23 04:23 WBC 13.6 H RBC 3.47 L Hgb 10.5 L Hct 30.7 L RDW 15.4 H Lymph % (Auto) [place] % (Auto) Lymph # (Auto) [place] # (Auto) Seg Neutrophils % Lymphocytes % (Manual) Monocytes % (Manual) Seg Neutrophils # Seg Neutrophils # Man Lymphocytes # (Manual) Monocytes # (Manual) D-Dimer Heparin Anti-Xa Level ABG pH POC ABG pCO2 POC ABG pO2 ABG pO2 ABG HCO3 ABG O2 Saturation ABG Base Excess ABG Hemoglobin ABG Oxyhemoglobin ABG Sodium ABG Potassium ABG Chloride ABG Glucose VBG pH Oxyhemoglobin Carboxyhemoglobin Sodium Potassium Chloride Carbon Dioxide 35 H BUN 34 H Creatinine Glucose 107 H POC Glucose 138 H Lactic Acid Calcium Phosphorus Magnesium Total Bilirubin AST ALT Ammonia Lactate Dehydrogenase Total Creatine Kinase CK-MB (CK-2) Troponin T NT-Pro-B Natriuret Pep Total Protein Albumin Triglycerides TSH Arterial Blood Glucose Arterial Blood Ionized Calcium Urine pH Urine WBC (Auto) Urine Creatinine 10/29/20 10/29/20 10/29/20 05:21 11:49 23:19 WBC RBC Hgb Hct RDW Lymph % (Auto) [place] % (Auto) Lymph # (Auto) [place] # (Auto) Seg Neutrophils % Lymphocytes % (Manual) Monocytes % (Manual) Seg Neutrophils # Seg Neutrophils # Man Lymphocytes # (Manual) Monocytes # (Manual) D-Dimer Heparin Anti-Xa Level ABG pH POC ABG pCO2 POC ABG pO2 ABG pO2 ABG HCO3 ABG O2 Saturation ABG Base Excess ABG Hemoglobin ABG Oxyhemoglobin ABG Sodium ABG Potassium ABG Chloride ABG Glucose VBG pH Oxyhemoglobin Carboxyhemoglobin Sodium Potassium Chloride Carbon Dioxide BUN Creatinine Glucose POC Glucose 115 H 124 H 129 H Lactic Acid Calcium Phosphorus Magnesium Total Bilirubin AST ALT Ammonia Lactate Dehydrogenase Total Creatine Kinase CK-MB (CK-2) Troponin T NT-Pro-B Natriuret Pep Total Protein Albumin Triglycerides TSH Arterial Blood Glucose Arterial Blood Ionized Calcium Urine pH Urine WBC (Auto) Urine Creatinine 10/30/20 10/30/20 10/30/20 04:59 05:10 11:52 WBC RBC Hgb Hct RDW Lymph % (Auto) [place] % (Auto) Lymph # (Auto) [place] # (Auto) Seg Neutrophils % Lymphocytes % (Manual) Monocytes % (Manual) Seg Neutrophils # Seg Neutrophils # Man Lymphocytes # (Manual) Monocytes # (Manual) D-Dimer Heparin Anti-Xa Level ABG pH POC ABG pCO2 POC ABG pO2 ABG pO2 ABG HCO3 ABG O2 Saturation ABG Base Excess ABG Hemoglobin ABG Oxyhemoglobin ABG Sodium ABG Potassium ABG Chloride ABG Glucose VBG pH Oxyhemoglobin Carboxyhemoglobin Sodium Potassium Chloride Carbon Dioxide 34 H BUN 33 H Creatinine Glucose 128 H POC Glucose 126 H 132 H Lactic Acid Calcium Phosphorus Magnesium Total Bilirubin AST ALT Ammonia Lactate Dehydrogenase Total Creatine Kinase CK-MB (CK-2) Troponin T NT-Pro-B Natriuret Pep Total Protein Albumin Triglycerides TSH Arterial Blood Glucose Arterial Blood Ionized Calcium Urine pH Urine WBC (Auto) Urine Creatinine 10/30/20 10/30/20 10/31/20 16:59 23:19 04:00 WBC RBC Hgb Hct RDW Lymph % (Auto) [place] % (Auto) Lymph # (Auto) [place] # (Auto) Seg Neutrophils % Lymphocytes % (Manual) Monocytes % (Manual) Seg Neutrophils # Seg Neutrophils # Man Lymphocytes # (Manual) Monocytes # (Manual) D-Dimer Heparin Anti-Xa Level ABG pH POC ABG pCO2 POC ABG pO2 ABG pO2 ABG HCO3 ABG O2 Saturation ABG Base Excess ABG Hemoglobin ABG Oxyhemoglobin ABG Sodium ABG Potassium ABG Chloride ABG Glucose VBG pH Oxyhemoglobin Carboxyhemoglobin Sodium Potassium Chloride Carbon Dioxide 38 H BUN 32 H Creatinine Glucose 121 H POC Glucose 118 H 138 H Lactic Acid Calcium Phosphorus Magnesium Total Bilirubin AST ALT Ammonia Lactate Dehydrogenase Total Creatine Kinase CK-MB (CK-2) Troponin T NT-Pro-B Natriuret Pep Total Protein Albumin Triglycerides TSH Arterial Blood Glucose Arterial Blood Ionized Calcium Urine pH Urine WBC (Auto) Urine Creatinine 10/31/20 10/31/20 10/31/20 05:13 11:09 16:17 WBC RBC Hgb Hct RDW Lymph % (Auto) [place] % (Auto) Lymph # (Auto) [place] # (Auto) Seg Neutrophils % Lymphocytes % (Manual) Monocytes % (Manual) Seg Neutrophils # Seg Neutrophils # Man Lymphocytes # (Manual) Monocytes # (Manual) D-Dimer Heparin Anti-Xa Level ABG pH POC ABG pCO2 71.1 H POC ABG pO2 67.4 L ABG pO2 ABG HCO3 ABG O2 Saturation ABG Base Excess ABG Hemoglobin 10.9 L ABG Oxyhemoglobin 90.7 L ABG Sodium ABG Potassium ABG Chloride ABG Glucose 134 H VBG pH Oxyhemoglobin Carboxyhemoglobin Sodium Potassium Chloride Carbon Dioxide BUN Creatinine Glucose POC Glucose 110 H 138 H Lactic Acid Calcium Phosphorus Magnesium Total Bilirubin AST ALT Ammonia Lactate Dehydrogenase Total Creatine Kinase CK-MB (CK-2) Troponin T NT-Pro-B Natriuret Pep Total Protein Albumin Triglycerides TSH Arterial Blood Glucose 134 H Arterial Blood Ionized Calcium Urine pH Urine WBC (Auto) Urine Creatinine 10/31/20 10/31/20 11/01/20 18:16 23:56 04:09 WBC 11.3 H RBC 3.05 L Hgb 9.0 L Hct 27.3 L RDW Lymph % (Auto) [place] % (Auto) Lymph # (Auto) [place] # (Auto) Seg Neutrophils % Lymphocytes % (Manual) Monocytes % (Manual) Seg Neutrophils # Seg Neutrophils # Man Lymphocytes # (Manual) Monocytes # (Manual) D-Dimer Heparin Anti-Xa Level ABG pH POC ABG pCO2 POC ABG pO2 ABG pO2 ABG HCO3 ABG O2 Saturation ABG Base Excess ABG Hemoglobin ABG Oxyhemoglobin ABG Sodium ABG Potassium ABG Chloride ABG Glucose VBG pH Oxyhemoglobin Carboxyhemoglobin Sodium Potassium Chloride Carbon Dioxide BUN Creatinine Glucose POC Glucose 135 H 122 H Lactic Acid Calcium Phosphorus Magnesium Total Bilirubin AST ALT Ammonia Lactate Dehydrogenase Total Creatine Kinase CK-MB (CK-2) Troponin T NT-Pro-B Natriuret Pep Total Protein Albumin Triglycerides TSH Arterial Blood Glucose Arterial Blood Ionized Calcium Urine pH Urine WBC (Auto) Urine Creatinine 11/01/20 11/01/20 11/01/20 05:10 11:51 17:17 WBC RBC Hgb Hct RDW Lymph % (Auto) [place] % (Auto) Lymph # (Auto) [place] # (Auto) Seg Neutrophils % Lymphocytes % (Manual) Monocytes % (Manual) Seg Neutrophils # Seg Neutrophils # Man Lymphocytes # (Manual) Monocytes # (Manual) D-Dimer Heparin Anti-Xa Level ABG pH POC ABG pCO2 POC ABG pO2 ABG pO2 ABG HCO3 ABG O2 Saturation ABG Base Excess ABG Hemoglobin ABG Oxyhemoglobin ABG Sodium ABG Potassium ABG Chloride ABG Glucose VBG pH Oxyhemoglobin Carboxyhemoglobin Sodium Potassium Chloride Carbon Dioxide BUN Creatinine Glucose POC Glucose 123 H 123 H 120 H Lactic Acid Calcium Phosphorus Magnesium Total Bilirubin AST ALT Ammonia Lactate Dehydrogenase Total Creatine Kinase CK-MB (CK-2) Troponin T NT-Pro-B Natriuret Pep Total Protein Albumin Triglycerides TSH Arterial Blood Glucose Arterial Blood Ionized Calcium Urine pH Urine WBC (Auto) Urine Creatinine 11/02/20 11/02/20 11/02/20 03:14 05:37 05:37 WBC RBC Hgb 9.8 L Hct 29.5 L RDW Lymph % (Auto) [place] % (Auto) Lymph # (Auto) [place] # (Auto) Seg Neutrophils % Lymphocytes % (Manual) Monocytes % (Manual) Seg Neutrophils # Seg Neutrophils # Man Lymphocytes # (Manual) Monocytes # (Manual) D-Dimer Heparin Anti-Xa Level ABG pH POC ABG pCO2 58.9 H POC ABG pO2 79.9 L ABG pO2 ABG HCO3 ABG O2 Saturation ABG Base Excess ABG Hemoglobin 10.6 L ABG Oxyhemoglobin ABG Sodium ABG Potassium ABG Chloride ABG Glucose 110 H VBG pH Oxyhemoglobin Carboxyhemoglobin Sodium Potassium Chloride Carbon Dioxide 37 H BUN 28 H Creatinine Glucose 106 H POC Glucose Lactic Acid Calcium Phosphorus Magnesium Total Bilirubin AST ALT Ammonia Lactate Dehydrogenase Total Creatine Kinase CK-MB (CK-2) Troponin T NT-Pro-B Natriuret Pep Total Protein Albumin Triglycerides TSH Arterial Blood Glucose 110 H Arterial Blood Ionized Calcium Urine pH Urine WBC (Auto) Urine Creatinine 11/02/20 11/03/20 11/03/20 23:29 04:45 04:45 WBC 11.8 H RBC 3.07 L Hgb 9.0 L Hct 27.2 L RDW Lymph % (Auto) 11.4 L [place] % (Auto) 9.5 H Lymph # (Auto) [place] # (Auto) 1.1 H Seg Neutrophils % 75.9 H Lymphocytes % (Manual) Monocytes % (Manual) Seg Neutrophils # 9.0 H Seg Neutrophils # Man Lymphocytes # (Manual) Monocytes # (Manual) D-Dimer Heparin Anti-Xa Level ABG pH POC ABG pCO2 POC ABG pO2 ABG pO2 ABG HCO3 ABG O2 Saturation ABG Base Excess ABG Hemoglobin ABG Oxyhemoglobin ABG Sodium ABG Potassium ABG Chloride ABG Glucose VBG pH Oxyhemoglobin Carboxyhemoglobin Sodium 146 H Potassium Chloride Carbon Dioxide 39 H BUN 26 H Creatinine Glucose POC Glucose 129 H Lactic Acid Calcium Phosphorus Magnesium Total Bilirubin AST ALT Ammonia Lactate Dehydrogenase Total Creatine Kinase CK-MB (CK-2) Troponin T NT-Pro-B Natriuret Pep Total Protein Albumin Triglycerides TSH Arterial Blood Glucose Arterial Blood Ionized Calcium Urine pH Urine WBC (Auto) Urine Creatinine 11/03/20 11/03/20 11/03/20 05:05 11:51 17:43 WBC RBC Hgb Hct RDW Lymph % (Auto) [place] % (Auto) Lymph # (Auto) [place] # (Auto) Seg Neutrophils % Lymphocytes % (Manual) Monocytes % (Manual) Seg Neutrophils # Seg Neutrophils # Man Lymphocytes # (Manual) Monocytes # (Manual) D-Dimer Heparin Anti-Xa Level ABG pH 7.452 H POC ABG pCO2 55.4 H POC ABG pO2 129.1 H ABG pO2 ABG HCO3 ABG O2 Saturation ABG Base Excess ABG Hemoglobin 9.3 L ABG Oxyhemoglobin ABG Sodium ABG Potassium ABG Chloride ABG Glucose 99 H VBG pH Oxyhemoglobin Carboxyhemoglobin 1.7 H Sodium Potassium Chloride Carbon Dioxide BUN Creatinine Glucose POC Glucose 131 H 125 H Lactic Acid Calcium Phosphorus Magnesium Total Bilirubin AST ALT Ammonia Lactate Dehydrogenase Total Creatine Kinase CK-MB (CK-2) Troponin T NT-Pro-B Natriuret Pep Total Protein Albumin Triglycerides TSH Arterial Blood Glucose 99 H Arterial Blood Ionized Calcium Urine pH Urine WBC (Auto) Urine Creatinine 11/03/20 11/04/20 11/04/20 23:27 04:00 05:10 WBC RBC Hgb Hct RDW Lymph % (Auto) [place] % (Auto) Lymph # (Auto) [place] # (Auto) Seg Neutrophils % Lymphocytes % (Manual) Monocytes % (Manual) Seg Neutrophils # Seg Neutrophils # Man Lymphocytes # (Manual) Monocytes # (Manual) D-Dimer Heparin Anti-Xa Level ABG pH POC ABG pCO2 POC ABG pO2 ABG pO2 ABG HCO3 ABG O2 Saturation ABG Base Excess ABG Hemoglobin ABG Oxyhemoglobin ABG Sodium ABG Potassium ABG Chloride ABG Glucose VBG pH Oxyhemoglobin Carboxyhemoglobin Sodium Potassium Chloride 95.2 L Carbon Dioxide 40 H BUN 26 H Creatinine Glucose 128 H POC Glucose 148 H 126 H Lactic Acid Calcium Phosphorus Magnesium Total Bilirubin AST ALT Ammonia Lactate Dehydrogenase Total Creatine Kinase CK-MB (CK-2) Troponin T NT-Pro-B Natriuret Pep Total Protein Albumin Triglycerides TSH Arterial Blood Glucose Arterial Blood Ionized Calcium Urine pH Urine WBC (Auto) Urine Creatinine 11/04/20 11/04/20 11/04/20 11:39 18:00 21:18 WBC RBC Hgb Hct RDW Lymph % (Auto) [place] % (Auto) Lymph # (Auto) [place] # (Auto) Seg Neutrophils % Lymphocytes % (Manual) Monocytes % (Manual) Seg Neutrophils # Seg Neutrophils # Man Lymphocytes # (Manual) Monocytes # (Manual) D-Dimer Heparin Anti-Xa Level ABG pH 7.511 H POC ABG pCO2 49.0 H POC ABG pO2 ABG pO2 ABG HCO3 ABG O2 Saturation ABG Base Excess ABG Hemoglobin 9.5 L ABG Oxyhemoglobin ABG Sodium 135.7 L ABG Potassium ABG Chloride ABG Glucose 152 H VBG pH Oxyhemoglobin Carboxyhemoglobin Sodium Potassium Chloride Carbon Dioxide BUN Creatinine Glucose POC Glucose 142 H 130 H Lactic Acid Calcium Phosphorus Magnesium Total Bilirubin AST ALT Ammonia Lactate Dehydrogenase Total Creatine Kinase CK-MB (CK-2) Troponin T NT-Pro-B Natriuret Pep Total Protein Albumin Triglycerides TSH Arterial Blood Glucose 152 H Arterial Blood Ionized Calcium 4.3 L Urine pH Urine WBC (Auto) Urine Creatinine 11/04/20 11/05/20 11/05/20 23:19 03:30 03:30 WBC RBC 3.02 L Hgb 9.1 L Hct 26.7 L RDW Lymph % (Auto) [place] % (Auto) Lymph # (Auto) [place] # (Auto) Seg Neutrophils % Lymphocytes % (Manual) Monocytes % (Manual) Seg Neutrophils # Seg Neutrophils # Man Lymphocytes # (Manual) Monocytes # (Manual) D-Dimer Heparin Anti-Xa Level ABG pH POC ABG pCO2 POC ABG pO2 ABG pO2 ABG HCO3 ABG O2 Saturation ABG Base Excess ABG Hemoglobin ABG Oxyhemoglobin ABG Sodium ABG Potassium ABG Chloride ABG Glucose VBG pH Oxyhemoglobin Carboxyhemoglobin Sodium Potassium Chloride 93.6 L Carbon Dioxide 40 H BUN 24 H Creatinine Glucose 121 H POC Glucose 126 H Lactic Acid Calcium Phosphorus Magnesium Total Bilirubin AST ALT Ammonia Lactate Dehydrogenase Total Creatine Kinase CK-MB (CK-2) Troponin T NT-Pro-B Natriuret Pep Total Protein Albumin Triglycerides TSH Arterial Blood Glucose Arterial Blood Ionized Calcium Urine pH Urine WBC (Auto) Urine Creatinine 11/05/20 11/05/20 11/05/20 05:24 11:37 17:37 WBC RBC Hgb Hct RDW Lymph % (Auto) [place] % (Auto) Lymph # (Auto) [place] # (Auto) Seg Neutrophils % Lymphocytes % (Manual) Monocytes % (Manual) Seg Neutrophils # Seg Neutrophils # Man Lymphocytes # (Manual) Monocytes # (Manual) D-Dimer Heparin Anti-Xa Level ABG pH POC ABG pCO2 POC ABG pO2 ABG pO2 ABG HCO3 ABG O2 Saturation ABG Base Excess ABG Hemoglobin ABG Oxyhemoglobin ABG Sodium ABG Potassium ABG Chloride ABG Glucose VBG pH Oxyhemoglobin Carboxyhemoglobin Sodium Potassium Chloride Carbon Dioxide BUN Creatinine Glucose POC Glucose 124 H 125 H 153 H Lactic Acid Calcium Phosphorus Magnesium Total Bilirubin AST ALT Ammonia Lactate Dehydrogenase Total Creatine Kinase CK-MB (CK-2) Troponin T NT-Pro-B Natriuret Pep Total Protein Albumin Triglycerides TSH Arterial Blood Glucose Arterial Blood Ionized Calcium Urine pH Urine WBC (Auto) Urine Creatinine 11/05/20 11/06/20 23:20 05:24 WBC RBC Hgb Hct RDW Lymph % (Auto) [place] % (Auto) Lymph # (Auto) [place] # (Auto) Seg Neutrophils % Lymphocytes % (Manual) Monocytes % (Manual) Seg Neutrophils # Seg Neutrophils # Man Lymphocytes # (Manual) Monocytes # (Manual) D-Dimer Heparin Anti-Xa Level ABG pH POC ABG pCO2 POC ABG pO2 ABG pO2 ABG HCO3 ABG O2 Saturation ABG Base Excess ABG Hemoglobin ABG Oxyhemoglobin ABG Sodium ABG Potassium ABG Chloride ABG Glucose VBG pH Oxyhemoglobin Carboxyhemoglobin Sodium Potassium Chloride Carbon Dioxide BUN Creatinine Glucose POC Glucose 133 H 143 H Lactic Acid Calcium Phosphorus Magnesium Total Bilirubin AST ALT Ammonia Lactate Dehydrogenase Total Creatine Kinase CK-MB (CK-2) Troponin T NT-Pro-B Natriuret Pep Total Protein Albumin Triglycerides TSH Arterial Blood Glucose Arterial Blood Ionized Calcium Urine pH Urine WBC (Auto) Urine Creatinine Chest x-ray: pending Allied health notes reviewed: nursing
[2020-11-07] MEDS: hydrALAZINE 25 MG TAB PO SCH ×3 (05:36→22:54)
[2020-11-07] MEDS: GLYCOPYRROLATE 1 MG TAB PO SCH ×3 (05:38→22:56)
[2020-11-07 05:54] LABS: Basophils % (Auto) 0.6 % (0.0-1.8); Eosinophils # (Auto) 0.5 K/mm3 (0.0-0.4); Eosinophils % (Auto) 6.9 % (0.0-4.3); Hemoglobin 9.6 gm/dl (11.8-15.2); Lymphocytes # (Auto) 1.5 K/mm3 (1.2-5.4); Lymphocytes % (Auto) 19.1 % (13.4-35.0); Mean Corpuscular HGB Conc 33 % (32-34); Mean Corpuscular Volume 90 fl (84-94); Monocytes # (Auto) 0.8 K/mm3 (0.0-0.8); Monocytes % (Auto) 10.3 % (0.0-7.3); Platelet Count 236 K/mm3 (140-440); Red Blood Count 3.24 M/mm3 (3.65-5.03); Red Cell Distribution Width 15.2 % (13.2-15.2)
[2020-11-07 06:06] LABS: BUN/Creatinine Ratio 23; Blood Urea Nitrogen 25 mg/dL (9-20); Calcium 8.9 mg/dL (8.4-10.2); Hemolysis Index 0
[2020-11-07] MEDS: ALBUTEROL 2.5 MG/3 ML NEBU IH PRN ×2 (07:30→16:59)
[2020-11-07] MEDS: ACETYLCYSTEINE 20% 200 MG/1 ML *FOR INHALATION USE INHALATION SCH ×2 (07:31→16:59)
[2020-11-07] MEDS: METOPROLOL TARTRATE 50 MG TAB PO SCH ×3 (08:29→22:53)
[2020-11-07] MEDS: LANSOPRAZOLE 30 MG SOLUTAB FEEDTUBE SCH ×2 (10:25→22:56)
[2020-11-07] MEDS: DOCUSATE SODIUM 100 MG/10 ML ORAL LIQD PO SCH ×2 (10:26→22:55)
[2020-11-07] MEDS: HEPARIN 5,000 UNIT/1 ML VIAL SUB-Q SCH ×2 (10:26→22:55)
[2020-11-07] MEDS: amLODIPine 10 MG TAB PO SCH (10:26)
[2020-11-07] MEDS: levETIRAcetam 500 MG/5 ML ORAL LIQD PO SCH ×2 (10:26→22:56)
[2020-11-07] MEDS: POLYETHYLENE GLYCOL 3350 17 GM POWDER PO SCH (10:27)
[2020-11-07] MEDS: QUEtiapine 100 MG TAB PO SCH (10:29)
[2020-11-07] MEDS: SCOPOLAMINE TRANSDERMAL PATCH 72 HR TD SCH (10:42)
--- NOTE | 2020-11-07 10:45 | Progress Note ---
Assessment and Plan Cardiac arrest x3 with ROSC Severe septic and cardiogenic shock Acute respiratory failure with hypoxemia and hypercarbia Acute pulmonary edema MOE (acute kidney injury) Lactic acidosis, severe metabolic acidosis Bilateral pneumonia, aspiration pneumonia Elevated troponins - increased seroquel doses (200mg qhs & 125 mg qam) - continue to shoot for RTC t-piece as tolerated - continue care as below otherwise; - complete mucomyst nebs X 5 days re: thick secretions - prn gentle diuresis - continue Seroquel for agitation control - daily SAT's and SBT assessment as tolerated - continue contact precautions re: MRSA - complete anti-infective's per ID rec's - follow clinically re: fevers / WBC - Monitor hemodynamics closely - wean supplemental oxygen for target O2 sat's > 92% acutely - VAP bundle addressed - continue lung protective strategies - bronchodilators with pulmonary hygiene per RT - wean per pulmonary driven protocols otherwise - Monitor urine output closely - bicarbonate infusion - avoid nephrotoxins, renally dose all medications - continue to avoid benzodiazepine's, reduce the possibility of delirium - continue Scopolamine for secretion control - continue wound care per RN/WCN - prn analgesia per CPOT score - Maintenance of sleep-wake cycle, avoid delirium - continue enteral nutritional support at goal rate as tolerated - G.I. & VTE prophylaxis - PT/OT/ROM exercises - continue mobility protocols for pressure ulcer prophylaxis - Monitor hemodynamics closely - continue other care per attending / other consultants - discharge planning ongoing concurrently .... Re-evaluate in am & prn CONDITION: CRITICAL PROGNOSIS: GUARDED CODE STATUS: FULL CODE The high probability of a clinically significant, sudden or life-threatening deterioration of the [respiratory, cardiovascular & neurologic] system(s) required my full and direct attention, intervention and personal management. The aggregate critical care time was [35] minutes without overlap. Time includes spent on; [x] Data Review and interpretation [x] Patient assessment and monitoring of vital signs [x] Documentation [x] Medication orders and management Subjective Date of service: 11/07/20 Principal diagnosis: Cardiac arrest; Septic Shock; Ac. hypoxemic & hypercapnic resp failure; MOE Interval history: Patient is seen today for: Cardiac arrest with ROSC; Severe septic and cardiogenic shock; Acute respiratory failure with hypoxemia and hypercarbia; Acute pulmonary edema; MOE; Lactic acidosis; severe metabolic acidosis; Bilateral pneumonia; aspiration pneumonia; Elevated troponins Seen and examined at bedside; 24hour events reviewed; nursing and respiratory care staff consulted; no adverse overnight events reported to me; resting peacefully in bed; per RT work of breathing increased yesterday and he was rested on MVS; back on t-piece now; no new issues otherwise Objective Vital Signs - 12hr 11/06/20 11/06/20 11/06/20 23:00 23:03 23:11 Temperature Pulse Rate 74 76 74 Pulse Rate [ Anterior Bilateral Throughout] Pulse Rate [ From Monitor] Respiratory 19 21 Rate Respiratory Rate [Anterior Bilateral Throughout] Blood Pressure 127/65 127/65 127/65 O2 Sat by Pulse 88 96 95 Oximetry O2 Sat by Pulse Oximetry [ Assessment] 11/06/20 11/06/20 11/06/20 23:12 23:15 23:30 Temperature Pulse Rate 78 74 Pulse Rate [ 76 Anterior Bilateral Throughout] Pulse Rate [ 80 From Monitor] Respiratory 22 19 Rate Respiratory 23 Rate [Anterior Bilateral Throughout] Blood Pressure 127/65 O2 Sat by Pulse 98 92 Oximetry O2 Sat by Pulse Oximetry [ Assessment] 11/06/20 11/07/20 11/07/20 23:39 00:00 00:30 Temperature 99.7 F H Pulse Rate 74 78 Pulse Rate [ Anterior Bilateral Throughout] Pulse Rate [ From Monitor] Respiratory 19 22 Rate Respiratory Rate [Anterior Bilateral Throughout] Blood Pressure 128/68 128/68 O2 Sat by Pulse 88 98 Oximetry O2 Sat by Pulse 92 Oximetry [ Assessment] 11/07/20 11/07/20 11/07/20 01:00 01:15 01:30 Temperature Pulse Rate 78 75 Pulse Rate [ Anterior Bilateral Throughout] Pulse Rate [ 80 From Monitor] Respiratory 19 22 21 Rate Respiratory Rate [Anterior Bilateral Throughout] Blood Pressure 128/68 146/82 O2 Sat by Pulse 97 98 96 Oximetry O2 Sat by Pulse Oximetry [ Assessment] 11/07/20 11/07/20 11/07/20 02:00 02:30 03:00 Temperature Pulse Rate 80 78 79 Pulse Rate [ Anterior Bilateral Throughout] Pulse Rate [ From Monitor] Respiratory 22 21 13 Rate Respiratory Rate [Anterior Bilateral Throughout] Blood Pressure 152/79 152/79 159/97 O2 Sat by Pulse 88 97 89 Oximetry O2 Sat by Pulse Oximetry [ Assessment] 11/07/20 11/07/20 11/07/20 03:14 03:24 03:30 Temperature 99.2 F Pulse Rate 80 79 Pulse Rate [ Anterior Bilateral Throughout] Pulse Rate [ From Monitor] Respiratory 19 Rate Respiratory Rate [Anterior Bilateral Throughout] Blood Pressure 159/97 159/97 O2 Sat by Pulse 92 95 Oximetry O2 Sat by Pulse Oximetry [ Assessment] 11/07/20 11/07/20 11/07/20 04:00 04:30 05:00 Temperature Pulse Rate 86 84 89 Pulse Rate [ Anterior Bilateral Throughout] Pulse Rate [ From Monitor] Respiratory 12 13 15 Rate Respiratory Rate [Anterior Bilateral Throughout] Blood Pressure 157/88 157/88 157/88 O2 Sat by Pulse 93 97 97 Oximetry O2 Sat by Pulse Oximetry [ Assessment] 11/07/20 11/07/20 11/07/20 05:30 05:36 06:00 Temperature Pulse Rate 86 90 91 H Pulse Rate [ Anterior Bilateral Throughout] Pulse Rate [ From Monitor] Respiratory 15 6 L Rate Respiratory Rate [Anterior Bilateral Throughout] Blood Pressure 157/88 183/102 160/78 O2 Sat by Pulse 95 89 Oximetry O2 Sat by Pulse Oximetry [ Assessment] 11/07/20 11/07/20 11/07/20 06:10 06:30 07:00 Temperature Pulse Rate 91 H 84 Pulse Rate [ Anterior Bilateral Throughout] Pulse Rate [ 80 From Monitor] Respiratory 22 13 21 Rate Respiratory Rate [Anterior Bilateral Throughout] Blood Pressure 160/78 143/67 O2 Sat by Pulse 98 97 86 Oximetry O2 Sat by Pulse Oximetry [ Assessment] 11/07/20 11/07/20 11/07/20 07:30 08:00 08:30 Temperature 99.0 F Pulse Rate 87 87 89 Pulse Rate [ 88 Anterior Bilateral Throughout] Pulse Rate [ 90 From Monitor] Respiratory 22 14 15 Rate Respiratory 25 H Rate [Anterior Bilateral Throughout] Blood Pressure 143/67 143/67 143/68 O2 Sat by Pulse 92 92 93 Oximetry O2 Sat by Pulse 98 Oximetry [ Assessment] Constitutional: appears uncomfortable (mild agitation), other (middle aged obese male with mildly increased respiratory efort at rest) Eyes: non-icteric ENT: oropharynx moist, oropharyngeal exudate pre (thick), other (midline tracheostomy) Neck: supple, no lymphadenopathy, no JVD Effort: mildly labored Ascultation: Bilateral: diminished breath sounds, rhonchi (scant) Percussion: Bilateral: not dull Cardiovascular: regular rate and rhythm, other (S1,S2) Gastrointestinal: normoactive bowel sounds, soft, non-tender, non-distended (protuberant) Integumentary: normal Extremities: no cyanosis, no edema, pulses normal, no ischemia or petechiae Neurologic: pupils equal and round, unable to assess, other (encephalopathic) Psychiatric: other (unable to assess re: AMS) CBC and BMP: 11/07/20 04:50 11/07/20 04:50 ABG, PT/INR, D-dimer: ABG ABG pH 7.511 (7.320-7.450) H 11/04/20 21:18 POC ABG pCO2 49.0 mmHg (32.0-48.0) H 11/04/20 21:18 ABG pCO2 55.5 mm Hg 10/16/20 05:10 POC ABG pO2 88.5 mmHg (83-108) 11/04/20 21:18 ABG pO2 104.5 mm Hg (80.0-90.0) H 10/16/20 05:10 POC ABG HCO3 38.3 11/04/20 21:18 ABG O2 Saturation 96.9 (0-100) 11/04/20 21:18 PT/INR, D-dimer PT 13.5 Sec. (12.2-14.9) 10/28/20 07:00 INR 1.05 (0.87-1.13) 10/28/20 07:00 D-Dimer 679.5 ng/mlDDU (0-234) H 10/10/20 10:48 Abnormal lab findings: Abnormal Labs 10/10/20 10/10/20 10/10/20 10:46 10:46 10:46 WBC RBC Hgb Hct RDW Lymph % (Auto) [place] % (Auto) Eos % (Auto) Lymph # (Auto) [place] # (Auto) Eos # (Auto) Seg Neutrophils % Lymphocytes % (Manual) Monocytes % (Manual) Seg Neutrophils # Seg Neutrophils # Man Lymphocytes # (Manual) Monocytes # (Manual) D-Dimer Heparin Anti-Xa Level ABG pH POC ABG pCO2 POC ABG pO2 ABG pO2 ABG HCO3 ABG O2 Saturation ABG Base Excess ABG Hemoglobin ABG Oxyhemoglobin ABG Sodium ABG Potassium ABG Chloride ABG Glucose VBG pH Oxyhemoglobin Carboxyhemoglobin Sodium Potassium Chloride Carbon Dioxide BUN Creatinine Glucose POC Glucose Lactic Acid 13.60 H* Calcium Phosphorus Magnesium Total Bilirubin AST ALT Ammonia 214.0 H Lactate Dehydrogenase Total Creatine Kinase CK-MB (CK-2) Troponin T NT-Pro-B Natriuret Pep Total Protein Albumin Triglycerides TSH 6.260 H Arterial Blood Glucose Arterial Blood Ionized Calcium Urine pH Urine WBC (Auto) Urine Creatinine 10/10/20 10/10/20 10/10/20 10:46 10:48 10:48 WBC RBC 5.28 H Hgb 15.5 H Hct 48.8 H RDW Lymph % (Auto) [place] % (Auto) Eos % (Auto) Lymph # (Auto) [place] # (Auto) Eos # (Auto) Seg Neutrophils % Lymphocytes % (Manual) 42.0 H Monocytes % (Manual) Seg Neutrophils # Seg Neutrophils # Man Lymphocytes # (Manual) Monocytes # (Manual) D-Dimer Heparin Anti-Xa Level ABG pH POC ABG pCO2 POC ABG pO2 ABG pO2 ABG HCO3 ABG O2 Saturation ABG Base Excess ABG Hemoglobin ABG Oxyhemoglobin ABG Sodium ABG Potassium ABG Chloride ABG Glucose VBG pH Oxyhemoglobin Carboxyhemoglobin Sodium Potassium 3.3 L Chloride 91.2 L Carbon Dioxide BUN Creatinine 1.8 H Glucose 231 H POC Glucose Lactic Acid Calcium Phosphorus Magnesium Total Bilirubin AST 60 H ALT 57 H Ammonia Lactate Dehydrogenase Total Creatine Kinase CK-MB (CK-2) Troponin T NT-Pro-B Natriuret Pep 1187 H Total Protein 9.0 H Albumin Triglycerides TSH Arterial Blood Glucose Arterial Blood Ionized Calcium Urine pH Urine WBC (Auto) Urine Creatinine 10/10/20 10/10/20 10/10/20 10:48 10:48 10:48 WBC RBC Hgb Hct RDW Lymph % (Auto) [place] % (Auto) Eos % (Auto) Lymph # (Auto) [place] # (Auto) Eos # (Auto) Seg Neutrophils % Lymphocytes % (Manual) Monocytes % (Manual) Seg Neutrophils # Seg Neutrophils # Man Lymphocytes # (Manual) Monocytes # (Manual) D-Dimer 679.5 H Heparin Anti-Xa Level ABG pH POC ABG pCO2 POC ABG pO2 ABG pO2 ABG HCO3 ABG O2 Saturation ABG Base Excess ABG Hemoglobin ABG Oxyhemoglobin ABG Sodium ABG Potassium ABG Chloride ABG Glucose VBG pH 6.870 L* Oxyhemoglobin Carboxyhemoglobin Sodium Potassium Chloride Carbon Dioxide BUN Creatinine Glucose POC Glucose Lactic Acid Calcium Phosphorus Magnesium Total Bilirubin AST ALT Ammonia Lactate Dehydrogenase 386 H Total Creatine Kinase CK-MB (CK-2) Troponin T NT-Pro-B Natriuret Pep Total Protein Albumin Triglycerides TSH Arterial Blood Glucose Arterial Blood Ionized Calcium Urine pH Urine WBC (Auto) Urine Creatinine 10/10/20 10/10/20 10/10/20 14:10 14:20 15:50 WBC RBC Hgb Hct RDW Lymph % (Auto) [place] % (Auto) Eos % (Auto) Lymph # (Auto) [place] # (Auto) Eos # (Auto) Seg Neutrophils % Lymphocytes % (Manual) Monocytes % (Manual) Seg Neutrophils # Seg Neutrophils # Man Lymphocytes # (Manual) Monocytes # (Manual) D-Dimer Heparin Anti-Xa Level ABG pH 7.175 L 7.247 L POC ABG pCO2 85.0 H POC ABG pO2 43.7 L ABG pO2 60.3 L ABG HCO3 32.0 H ABG O2 Saturation 86.1 L ABG Base Excess ABG Hemoglobin ABG Oxyhemoglobin 67.7 L ABG Sodium ABG Potassium ABG Chloride ABG Glucose 247 H VBG pH Oxyhemoglobin 84.4 L Carboxyhemoglobin Sodium Potassium Chloride Carbon Dioxide BUN Creatinine Glucose POC Glucose Lactic Acid 4.00 H* Calcium Phosphorus Magnesium Total Bilirubin AST ALT Ammonia Lactate Dehydrogenase Total Creatine Kinase CK-MB (CK-2) Troponin T NT-Pro-B Natriuret Pep Total Protein Albumin Triglycerides TSH Arterial Blood Glucose 247 H Arterial Blood Ionized Calcium 4.4 L Urine pH Urine WBC (Auto) Urine Creatinine 10/10/20 10/10/20 10/10/20 15:50 16:22 18:18 WBC RBC Hgb Hct RDW Lymph % (Auto) [place] % (Auto) Eos % (Auto) Lymph # (Auto) [place] # (Auto) Eos # (Auto) Seg Neutrophils % Lymphocytes % (Manual) Monocytes % (Manual) Seg Neutrophils # Seg Neutrophils # Man Lymphocytes # (Manual) Monocytes # (Manual) D-Dimer Heparin Anti-Xa Level ABG pH 7.171 L POC ABG pCO2 96.6 H POC ABG pO2 55.3 L ABG pO2 ABG HCO3 ABG O2 Saturation ABG Base Excess ABG Hemoglobin ABG Oxyhemoglobin 81.4 L ABG Sodium ABG Potassium ABG Chloride ABG Glucose 115 H VBG pH Oxyhemoglobin Carboxyhemoglobin Sodium Potassium Chloride Carbon Dioxide BUN Creatinine Glucose POC Glucose 132 H Lactic Acid Calcium Phosphorus Magnesium Total Bilirubin AST ALT Ammonia Lactate Dehydrogenase Total Creatine Kinase 1192 H CK-MB (CK-2) 21.7 H Troponin T 0.377 H* D NT-Pro-B Natriuret Pep Total Protein Albumin Triglycerides TSH Arterial Blood Glucose 115 H Arterial Blood Ionized Calcium Urine pH Urine WBC (Auto) Urine Creatinine 10/10/20 10/10/20 10/10/20 18:18 18:18 22:49 WBC 23.0 H RBC 5.12 H Hgb Hct RDW Lymph % (Auto) [place] % (Auto) Eos % (Auto) Lymph # (Auto) [place] # (Auto) Eos # (Auto) Seg Neutrophils % Lymphocytes % (Manual) 4.0 L Monocytes % (Manual) 9.0 H Seg Neutrophils # Seg Neutrophils # Man 13.8 H Lymphocytes # (Manual) 0.9 L Monocytes # (Manual) 2.1 H D-Dimer Heparin Anti-Xa Level ABG pH POC ABG pCO2 POC ABG pO2 ABG pO2 ABG HCO3 ABG O2 Saturation ABG Base Excess ABG Hemoglobin ABG Oxyhemoglobin ABG Sodium ABG Potassium ABG Chloride ABG Glucose VBG pH Oxyhemoglobin Carboxyhemoglobin Sodium 146 H Potassium Chloride Carbon Dioxide 34 H D BUN 27 H Creatinine 2.7 H Glucose 102 H POC Glucose Lactic Acid Calcium Phosphorus Magnesium Total Bilirubin AST 90 H ALT 66 H Ammonia Lactate Dehydrogenase Total Creatine Kinase CK-MB (CK-2) Troponin T 0.273 H* D NT-Pro-B Natriuret Pep Total Protein Albumin Triglycerides TSH Arterial Blood Glucose Arterial Blood Ionized Calcium Urine pH Urine WBC (Auto) Urine Creatinine 10/11/20 10/11/20 10/11/20 02:00 02:00 02:00 WBC 17.3 H RBC Hgb Hct RDW Lymph % (Auto) 3.9 L [place] % (Auto) Eos % (Auto) Lymph # (Auto) 0.7 L [place] # (Auto) Eos # (Auto) Seg Neutrophils % 93.0 H Lymphocytes % (Manual) Monocytes % (Manual) Seg Neutrophils # 16.1 H Seg Neutrophils # Man Lymphocytes # (Manual) Monocytes # (Manual) D-Dimer Heparin Anti-Xa Level ABG pH POC ABG pCO2 POC ABG pO2 ABG pO2 ABG HCO3 ABG O2 Saturation ABG Base Excess ABG Hemoglobin ABG Oxyhemoglobin ABG Sodium ABG Potassium ABG Chloride ABG Glucose VBG pH Oxyhemoglobin Carboxyhemoglobin Sodium 149 H Potassium 3.3 L Chloride 95.3 L Carbon Dioxide 37 H BUN 29 H Creatinine 2.6 H Glucose POC Glucose Lactic Acid Calcium Phosphorus Magnesium Total Bilirubin AST 80 H ALT 59 H Ammonia Lactate Dehydrogenase Total Creatine Kinase CK-MB (CK-2) Troponin T 0.201 H* D NT-Pro-B Natriuret Pep Total Protein Albumin 3.6 L Triglycerides TSH Arterial Blood Glucose Arterial Blood Ionized Calcium Urine pH Urine WBC (Auto) Urine Creatinine 10/11/20 10/11/20 10/11/20 03:51 08:35 11:15 WBC RBC Hgb Hct RDW Lymph % (Auto) [place] % (Auto) Eos % (Auto) Lymph # (Auto) [place] # (Auto) Eos # (Auto) Seg Neutrophils % Lymphocytes % (Manual) Monocytes % (Manual) Seg Neutrophils # Seg Neutrophils # Man Lymphocytes # (Manual) Monocytes # (Manual) D-Dimer Heparin Anti-Xa Level 0.22 L ABG pH 7.491 H POC ABG pCO2 57.6 H POC ABG pO2 ABG pO2 ABG HCO3 ABG O2 Saturation ABG Base Excess ABG Hemoglobin ABG Oxyhemoglobin ABG Sodium 150.0 H ABG Potassium 3.1 L ABG Chloride 96.0 L ABG Glucose 122 H VBG pH Oxyhemoglobin Carboxyhemoglobin Sodium Potassium Chloride Carbon Dioxide BUN Creatinine Glucose POC Glucose 151 H Lactic Acid Calcium Phosphorus Magnesium Total Bilirubin AST ALT Ammonia Lactate Dehydrogenase Total Creatine Kinase CK-MB (CK-2) Troponin T NT-Pro-B Natriuret Pep Total Protein Albumin Triglycerides TSH Arterial Blood Glucose 122 H Arterial Blood Ionized Calcium 3.9 L Urine pH Urine WBC (Auto) Urine Creatinine 10/11/20 10/11/20 10/11/20 13:30 13:30 13:30 WBC 15.0 H RBC Hgb Hct RDW Lymph % (Auto) [place] % (Auto) Eos % (Auto) Lymph # (Auto) [place] # (Auto) Eos # (Auto) Seg Neutrophils % Lymphocytes % (Manual) Monocytes % (Manual) Seg Neutrophils # Seg Neutrophils # Man Lymphocytes # (Manual) Monocytes # (Manual) D-Dimer Heparin Anti-Xa Level ABG pH POC ABG pCO2 POC ABG pO2 ABG pO2 ABG HCO3 ABG O2 Saturation ABG Base Excess ABG Hemoglobin ABG Oxyhemoglobin ABG Sodium ABG Potassium ABG Chloride ABG Glucose VBG pH Oxyhemoglobin Carboxyhemoglobin Sodium Potassium Chloride Carbon Dioxide BUN Creatinine Glucose POC Glucose Lactic Acid Calcium Phosphorus Magnesium Total Bilirubin AST ALT Ammonia Lactate Dehydrogenase Total Creatine Kinase CK-MB (CK-2) Troponin T NT-Pro-B Natriuret Pep Total Protein Albumin Triglycerides TSH Arterial Blood Glucose Arterial Blood Ionized Calcium Urine pH 9.0 H Urine WBC (Auto) 18.0 H Urine Creatinine 80.5 H 10/11/20 10/11/20 10/12/20 17:17 23:14 03:53 WBC RBC Hgb Hct RDW Lymph % (Auto) [place] % (Auto) Eos % (Auto) Lymph # (Auto) [place] # (Auto) Eos # (Auto) Seg Neutrophils % Lymphocytes % (Manual) Monocytes % (Manual) Seg Neutrophils # Seg Neutrophils # Man Lymphocytes # (Manual) Monocytes # (Manual) D-Dimer Heparin Anti-Xa Level ABG pH 7.545 H POC ABG pCO2 54.6 H POC ABG pO2 231.9 H ABG pO2 ABG HCO3 ABG O2 Saturation ABG Base Excess ABG Hemoglobin ABG Oxyhemoglobin 98.5 H ABG Sodium 150.5 H ABG Potassium 3.2 L ABG Chloride 96.0 L ABG Glucose 148 H VBG pH Oxyhemoglobin Carboxyhemoglobin Sodium Potassium Chloride Carbon Dioxide BUN Creatinine Glucose POC Glucose 121 H 135 H Lactic Acid Calcium Phosphorus Magnesium Total Bilirubin AST ALT Ammonia Lactate Dehydrogenase Total Creatine Kinase CK-MB (CK-2) Troponin T NT-Pro-B Natriuret Pep Total Protein Albumin Triglycerides TSH Arterial Blood Glucose 148 H Arterial Blood Ionized Calcium 3.8 L Urine pH Urine WBC (Auto) Urine Creatinine 10/12/20 10/12/20 10/12/20 04:00 05:10 05:12 WBC 14.3 H RBC Hgb 11.6 L Hct 35.2 L RDW Lymph % (Auto) [place] % (Auto) Eos % (Auto) Lymph # (Auto) [place] # (Auto) Eos # (Auto) Seg Neutrophils % Lymphocytes % (Manual) Monocytes % (Manual) Seg Neutrophils # Seg Neutrophils # Man Lymphocytes # (Manual) Monocytes # (Manual) D-Dimer Heparin Anti-Xa Level ABG pH POC ABG pCO2 POC ABG pO2 ABG pO2 ABG HCO3 ABG O2 Saturation ABG Base Excess ABG Hemoglobin ABG Oxyhemoglobin ABG Sodium ABG Potassium ABG Chloride ABG Glucose VBG pH Oxyhemoglobin Carboxyhemoglobin Sodium 155 H Potassium 3.3 L Chloride 97.9 L Carbon Dioxide 47 H* D BUN 50 H Creatinine 3.4 H Glucose 146 H POC Glucose 137 H Lactic Acid Calcium 8.0 L Phosphorus Magnesium Total Bilirubin AST ALT Ammonia Lactate Dehydrogenase Total Creatine Kinase CK-MB (CK-2) Troponin T 0.125 H* D NT-Pro-B Natriuret Pep Total Protein Albumin Triglycerides TSH Arterial Blood Glucose Arterial Blood Ionized Calcium Urine pH Urine WBC (Auto) Urine Creatinine 10/12/20 10/12/20 10/12/20 11:39 16:01 19:49 WBC RBC Hgb Hct RDW Lymph % (Auto) [place] % (Auto) Eos % (Auto) Lymph # (Auto) [place] # (Auto) Eos # (Auto) Seg Neutrophils % Lymphocytes % (Manual) Monocytes % (Manual) Seg Neutrophils # Seg Neutrophils # Man Lymphocytes # (Manual) Monocytes # (Manual) D-Dimer Heparin Anti-Xa Level ABG pH POC ABG pCO2 POC ABG pO2 ABG pO2 ABG HCO3 ABG O2 Saturation ABG Base Excess ABG Hemoglobin ABG Oxyhemoglobin ABG Sodium ABG Potassium ABG Chloride ABG Glucose VBG pH Oxyhemoglobin Carboxyhemoglobin Sodium 157 H Potassium 3.3 L Chloride Carbon Dioxide 47 H* BUN 52 H Creatinine 3.0 H Glucose 137 H POC Glucose 138 H 119 H Lactic Acid Calcium 8.0 L Phosphorus Magnesium Total Bilirubin AST ALT Ammonia Lactate Dehydrogenase Total Creatine Kinase CK-MB (CK-2) Troponin T NT-Pro-B Natriuret Pep Total Protein Albumin Triglycerides TSH Arterial Blood Glucose Arterial Blood Ionized Calcium Urine pH Urine WBC (Auto) Urine Creatinine 10/12/20 10/13/20 10/13/20 23:37 02:28 04:52 WBC RBC Hgb Hct RDW Lymph % (Auto) [place] % (Auto) Eos % (Auto) Lymph # (Auto) [place] # (Auto) Eos # (Auto) Seg Neutrophils % Lymphocytes % (Manual) Monocytes % (Manual) Seg Neutrophils # Seg Neutrophils # Man Lymphocytes # (Manual) Monocytes # (Manual) D-Dimer Heparin Anti-Xa Level ABG pH 7.485 H POC ABG pCO2 57.1 H POC ABG pO2 ABG pO2 ABG HCO3 ABG O2 Saturation ABG Base Excess ABG Hemoglobin ABG Oxyhemoglobin ABG Sodium 152.4 H ABG Potassium ABG Chloride ABG Glucose 129 H VBG pH Oxyhemoglobin Carboxyhemoglobin Sodium 155 H Potassium Chloride Carbon Dioxide 45 H* BUN 52 H Creatinine 2.7 H Glucose 121 H POC Glucose 131 H Lactic Acid Calcium Phosphorus Magnesium 2.40 H Total Bilirubin AST ALT Ammonia Lactate Dehydrogenase Total Creatine Kinase CK-MB (CK-2) Troponin T NT-Pro-B Natriuret Pep Total Protein Albumin Triglycerides 278 H TSH Arterial Blood Glucose 129 H Arterial Blood Ionized Calcium 4.1 L Urine pH Urine WBC (Auto) Urine Creatinine 10/13/20 10/13/20 10/13/20 04:52 05:13 11:37 WBC 14.7 H RBC Hgb 11.7 L Hct RDW 15.8 H Lymph % (Auto) [place] % (Auto) Eos % (Auto) Lymph # (Auto) [place] # (Auto) Eos # (Auto) Seg Neutrophils % Lymphocytes % (Manual) Monocytes % (Manual) Seg Neutrophils # Seg Neutrophils # Man Lymphocytes # (Manual) Monocytes # (Manual) D-Dimer Heparin Anti-Xa Level ABG pH POC ABG pCO2 POC ABG pO2 ABG pO2 ABG HCO3 ABG O2 Saturation ABG Base Excess ABG Hemoglobin ABG Oxyhemoglobin ABG Sodium ABG Potassium ABG Chloride ABG Glucose VBG pH Oxyhemoglobin Carboxyhemoglobin Sodium Potassium Chloride Carbon Dioxide BUN Creatinine Glucose POC Glucose 116 H 116 H Lactic Acid Calcium Phosphorus Magnesium Total Bilirubin AST ALT Ammonia Lactate Dehydrogenase Total Creatine Kinase CK-MB (CK-2) Troponin T NT-Pro-B Natriuret Pep Total Protein Albumin Triglycerides TSH Arterial Blood Glucose Arterial Blood Ionized Calcium Urine pH Urine WBC (Auto) Urine Creatinine 10/13/20 10/14/20 10/14/20 17:50 03:45 04:46 WBC 11.1 H RBC Hgb Hct RDW 15.3 H Lymph % (Auto) [place] % (Auto) Eos % (Auto) Lymph # (Auto) [place] # (Auto) Eos # (Auto) Seg Neutrophils % Lymphocytes % (Manual) Monocytes % (Manual) Seg Neutrophils # Seg Neutrophils # Man Lymphocytes # (Manual) Monocytes # (Manual) D-Dimer Heparin Anti-Xa Level ABG pH POC ABG pCO2 59.6 H POC ABG pO2 ABG pO2 ABG HCO3 ABG O2 Saturation ABG Base Excess ABG Hemoglobin ABG Oxyhemoglobin ABG Sodium 151.4 H ABG Potassium 3.3 L ABG Chloride ABG Glucose 138 H VBG pH Oxyhemoglobin Carboxyhemoglobin 1.6 H Sodium Potassium Chloride Carbon Dioxide BUN Creatinine Glucose POC Glucose 140 H Lactic Acid Calcium Phosphorus Magnesium Total Bilirubin AST ALT Ammonia Lactate Dehydrogenase Total Creatine Kinase CK-MB (CK-2) Troponin T NT-Pro-B Natriuret Pep Total Protein Albumin Triglycerides TSH Arterial Blood Glucose 138 H Arterial Blood Ionized Calcium 4.5 L Urine pH Urine WBC (Auto) Urine Creatinine 10/14/20 10/14/20 10/14/20 04:46 05:10 11:11 WBC RBC Hgb Hct RDW Lymph % (Auto) [place] % (Auto) Eos % (Auto) Lymph # (Auto) [place] # (Auto) Eos # (Auto) Seg Neutrophils % Lymphocytes % (Manual) Monocytes % (Manual) Seg Neutrophils # Seg Neutrophils # Man Lymphocytes # (Manual) Monocytes # (Manual) D-Dimer Heparin Anti-Xa Level ABG pH POC ABG pCO2 POC ABG pO2 ABG pO2 ABG HCO3 ABG O2 Saturation ABG Base Excess ABG Hemoglobin ABG Oxyhemoglobin ABG Sodium ABG Potassium ABG Chloride ABG Glucose VBG pH Oxyhemoglobin Carboxyhemoglobin Sodium 152 H Potassium 3.5 L Chloride Carbon Dioxide 38 H D BUN 46 H Creatinine 2.3 H Glucose 127 H POC Glucose 116 H 114 H Lactic Acid Calcium Phosphorus Magnesium Total Bilirubin AST ALT Ammonia Lactate Dehydrogenase Total Creatine Kinase CK-MB (CK-2) Troponin T NT-Pro-B Natriuret Pep Total Protein Albumin Triglycerides TSH Arterial Blood Glucose Arterial Blood Ionized Calcium Urine pH Urine WBC (Auto) Urine Creatinine 10/14/20 10/14/20 10/15/20 18:53 23:23 04:12 WBC RBC Hgb Hct RDW Lymph % (Auto) [place] % (Auto) Eos % (Auto) Lymph # (Auto) [place] # (Auto) Eos # (Auto) Seg Neutrophils % Lymphocytes % (Manual) Monocytes % (Manual) Seg Neutrophils # Seg Neutrophils # Man Lymphocytes # (Manual) Monocytes # (Manual) D-Dimer Heparin Anti-Xa Level ABG pH POC ABG pCO2 POC ABG pO2 ABG pO2 ABG HCO3 ABG O2 Saturation ABG Base Excess ABG Hemoglobin ABG Oxyhemoglobin ABG Sodium ABG Potassium ABG Chloride ABG Glucose VBG pH Oxyhemoglobin Carboxyhemoglobin Sodium 149 H Potassium 3.2 L Chloride Carbon Dioxide 37 H BUN 40 H Creatinine 2.0 H Glucose 124 H POC Glucose 128 H 113 H Lactic Acid Calcium Phosphorus Magnesium Total Bilirubin AST ALT Ammonia Lactate Dehydrogenase Total Creatine Kinase CK-MB (CK-2) Troponin T NT-Pro-B Natriuret Pep Total Protein Albumin Triglycerides TSH Arterial Blood Glucose Arterial Blood Ionized Calcium Urine pH Urine WBC (Auto) Urine Creatinine 10/15/20 10/15/20 10/15/20 04:22 11:39 17:36 WBC RBC Hgb Hct RDW Lymph % (Auto) [place] % (Auto) Eos % (Auto) Lymph # (Auto) [place] # (Auto) Eos # (Auto) Seg Neutrophils % Lymphocytes % (Manual) Monocytes % (Manual) Seg Neutrophils # Seg Neutrophils # Man Lymphocytes # (Manual) Monocytes # (Manual) D-Dimer Heparin Anti-Xa Level ABG pH POC ABG pCO2 POC ABG pO2 ABG pO2 115.0 H ABG HCO3 38.1 H ABG O2 Saturation ABG Base Excess 11.3 H ABG Hemoglobin 11.0 L ABG Oxyhemoglobin ABG Sodium ABG Potassium ABG Chloride ABG Glucose VBG pH Oxyhemoglobin Carboxyhemoglobin Sodium Potassium Chloride Carbon Dioxide BUN Creatinine Glucose POC Glucose 123 H 118 H Lactic Acid Calcium Phosphorus Magnesium Total Bilirubin AST ALT Ammonia Lactate Dehydrogenase Total Creatine Kinase CK-MB (CK-2) Troponin T NT-Pro-B Natriuret Pep Total Protein Albumin Triglycerides TSH Arterial Blood Glucose Arterial Blood Ionized Calcium Urine pH Urine WBC (Auto) Urine Creatinine 10/15/20 10/16/20 10/16/20 23:18 03:13 05:10 WBC RBC Hgb Hct RDW Lymph % (Auto) [place] % (Auto) Eos % (Auto) Lymph # (Auto) [place] # (Auto) Eos # (Auto) Seg Neutrophils % Lymphocytes % (Manual) Monocytes % (Manual) Seg Neutrophils # Seg Neutrophils # Man Lymphocytes # (Manual) Monocytes # (Manual) D-Dimer Heparin Anti-Xa Level ABG pH POC ABG pCO2 POC ABG pO2 ABG pO2 104.5 H ABG HCO3 35.1 H ABG O2 Saturation ABG Base Excess 9.5 H ABG Hemoglobin 7.9 L ABG Oxyhemoglobin ABG Sodium ABG Potassium ABG Chloride ABG Glucose VBG pH Oxyhemoglobin Carboxyhemoglobin Sodium Potassium 3.3 L Chloride Carbon Dioxide 33 H BUN 37 H Creatinine 1.4 H Glucose 148 H POC Glucose 135 H Lactic Acid Calcium Phosphorus Magnesium 2.40 H Total Bilirubin AST ALT Ammonia Lactate Dehydrogenase Total Creatine Kinase CK-MB (CK-2) Troponin T NT-Pro-B Natriuret Pep Total Protein Albumin Triglycerides TSH Arterial Blood Glucose Arterial Blood Ionized Calcium Urine pH Urine WBC (Auto) Urine Creatinine 10/16/20 10/16/20 10/16/20 06:36 11:08 17:07 WBC RBC Hgb Hct RDW Lymph % (Auto) [place] % (Auto) Eos % (Auto) Lymph # (Auto) [place] # (Auto) Eos # (Auto) Seg Neutrophils % Lymphocytes % (Manual) Monocytes % (Manual) Seg Neutrophils # Seg Neutrophils # Man Lymphocytes # (Manual) Monocytes # (Manual) D-Dimer Heparin Anti-Xa Level ABG pH POC ABG pCO2 POC ABG pO2 ABG pO2 ABG HCO3 ABG O2 Saturation ABG Base Excess ABG Hemoglobin ABG Oxyhemoglobin ABG Sodium ABG Potassium ABG Chloride ABG Glucose VBG pH Oxyhemoglobin Carboxyhemoglobin Sodium Potassium Chloride Carbon Dioxide BUN Creatinine Glucose POC Glucose 150 H 111 H 132 H Lactic Acid Calcium Phosphorus Magnesium Total Bilirubin AST ALT Ammonia Lactate Dehydrogenase Total Creatine Kinase CK-MB (CK-2) Troponin T NT-Pro-B Natriuret Pep Total Protein Albumin Triglycerides TSH Arterial Blood Glucose Arterial Blood Ionized Calcium Urine pH Urine WBC (Auto) Urine Creatinine 10/16/20 10/17/20 10/17/20 23:38 03:32 03:32 WBC RBC Hgb Hct RDW Lymph % (Auto) [place] % (Auto) Eos % (Auto) Lymph # (Auto) [place] # (Auto) Eos # (Auto) Seg Neutrophils % Lymphocytes % (Manual) Monocytes % (Manual) Seg Neutrophils # Seg Neutrophils # Man Lymphocytes # (Manual) Monocytes # (Manual) D-Dimer Heparin Anti-Xa Level ABG pH POC ABG pCO2 POC ABG pO2 ABG pO2 ABG HCO3 ABG O2 Saturation ABG Base Excess ABG Hemoglobin ABG Oxyhemoglobin ABG Sodium ABG Potassium ABG Chloride ABG Glucose VBG pH Oxyhemoglobin Carboxyhemoglobin Sodium 146 H Potassium Chloride Carbon Dioxide 32 H BUN 57 H Creatinine 2.4 H D Glucose 124 H POC Glucose 117 H Lactic Acid Calcium Phosphorus 5.20 H D Magnesium Total Bilirubin AST ALT Ammonia Lactate Dehydrogenase Total Creatine Kinase CK-MB (CK-2) Troponin T NT-Pro-B Natriuret Pep Total Protein Albumin Triglycerides TSH Arterial Blood Glucose Arterial Blood Ionized Calcium Urine pH Urine WBC (Auto) Urine Creatinine 10/17/20 10/17/20 10/18/20 05:10 17:33 00:13 WBC RBC Hgb Hct RDW Lymph % (Auto) [place] % (Auto) Eos % (Auto) Lymph # (Auto) [place] # (Auto) Eos # (Auto) Seg Neutrophils % Lymphocytes % (Manual) Monocytes % (Manual) Seg Neutrophils # Seg Neutrophils # Man Lymphocytes # (Manual) Monocytes # (Manual) D-Dimer Heparin Anti-Xa Level ABG pH POC ABG pCO2 POC ABG pO2 ABG pO2 ABG HCO3 ABG O2 Saturation ABG Base Excess ABG Hemoglobin ABG Oxyhemoglobin ABG Sodium ABG Potassium ABG Chloride ABG Glucose VBG pH Oxyhemoglobin Carboxyhemoglobin Sodium Potassium Chloride Carbon Dioxide BUN Creatinine Glucose POC Glucose 122 H 121 H 23 L Lactic Acid Calcium Phosphorus Magnesium Total Bilirubin AST ALT Ammonia Lactate Dehydrogenase Total Creatine Kinase CK-MB (CK-2) Troponin T NT-Pro-B Natriuret Pep Total Protein Albumin Triglycerides TSH Arterial Blood Glucose Arterial Blood Ionized Calcium Urine pH Urine WBC (Auto) Urine Creatinine 10/18/20 10/18/20 10/18/20 00:16 03:27 03:27 WBC RBC Hgb 11.7 L Hct RDW Lymph % (Auto) [place] % (Auto) Eos % (Auto) Lymph # (Auto) [place] # (Auto) Eos # (Auto) Seg Neutrophils % Lymphocytes % (Manual) Monocytes % (Manual) Seg Neutrophils # Seg Neutrophils # Man Lymphocytes # (Manual) Monocytes # (Manual) D-Dimer Heparin Anti-Xa Level ABG pH POC ABG pCO2 POC ABG pO2 ABG pO2 ABG HCO3 ABG O2 Saturation ABG Base Excess ABG Hemoglobin ABG Oxyhemoglobin ABG Sodium ABG Potassium ABG Chloride ABG Glucose VBG pH Oxyhemoglobin Carboxyhemoglobin Sodium Potassium Chloride 97.6 L Carbon Dioxide BUN 90 H Creatinine 3.3 H Glucose 146 H POC Glucose 134 H Lactic Acid Calcium Phosphorus Magnesium Total Bilirubin 1.70 H AST ALT Ammonia Lactate Dehydrogenase Total Creatine Kinase CK-MB (CK-2) Troponin T NT-Pro-B Natriuret Pep Total Protein Albumin 3.1 L Triglycerides TSH Arterial Blood Glucose Arterial Blood Ionized Calcium Urine pH Urine WBC (Auto) Urine Creatinine 10/18/20 10/18/20 10/18/20 05:09 11:19 17:15 WBC RBC Hgb Hct RDW Lymph % (Auto) [place] % (Auto) Eos % (Auto) Lymph # (Auto) [place] # (Auto) Eos # (Auto) Seg Neutrophils % Lymphocytes % (Manual) Monocytes % (Manual) Seg Neutrophils # Seg Neutrophils # Man Lymphocytes # (Manual) Monocytes # (Manual) D-Dimer Heparin Anti-Xa Level ABG pH POC ABG pCO2 POC ABG pO2 ABG pO2 ABG HCO3 ABG O2 Saturation ABG Base Excess ABG Hemoglobin ABG Oxyhemoglobin ABG Sodium ABG Potassium ABG Chloride ABG Glucose VBG pH Oxyhemoglobin Carboxyhemoglobin Sodium Potassium Chloride Carbon Dioxide BUN Creatinine Glucose POC Glucose 144 H 145 H 151 H Lactic Acid Calcium Phosphorus Magnesium Total Bilirubin AST ALT Ammonia Lactate Dehydrogenase Total Creatine Kinase CK-MB (CK-2) Troponin T NT-Pro-B Natriuret Pep Total Protein Albumin Triglycerides TSH Arterial Blood Glucose Arterial Blood Ionized Calcium Urine pH Urine WBC (Auto) Urine Creatinine 10/18/20 10/18/20 10/19/20 23:16 Unknown 04:55 WBC RBC Hgb Hct RDW Lymph % (Auto) [place] % (Auto) Eos % (Auto) Lymph # (Auto) [place] # (Auto) Eos # (Auto) Seg Neutrophils % Lymphocytes % (Manual) Monocytes % (Manual) Seg Neutrophils # Seg Neutrophils # Man Lymphocytes # (Manual) Monocytes # (Manual) D-Dimer Heparin Anti-Xa Level ABG pH POC ABG pCO2 POC ABG pO2 ABG pO2 ABG HCO3 ABG O2 Saturation ABG Base Excess ABG Hemoglobin ABG Oxyhemoglobin ABG Sodium ABG Potassium ABG Chloride ABG Glucose VBG pH Oxyhemoglobin Carboxyhemoglobin Sodium Potassium Chloride Carbon Dioxide BUN 104 H Creatinine 3.1 H Glucose 139 H POC Glucose 123 H Lactic Acid Calcium Phosphorus Magnesium Total Bilirubin AST ALT Ammonia Lactate Dehydrogenase Total Creatine Kinase CK-MB (CK-2) Troponin T NT-Pro-B Natriuret Pep Total Protein Albumin Triglycerides TSH Arterial Blood Glucose Arterial Blood Ionized Calcium Urine pH Urine WBC (Auto) 115.0 H Urine Creatinine 10/19/20 10/19/20 10/19/20 04:55 11:35 13:14 WBC 15.1 H RBC Hgb 11.1 L Hct 34.4 L RDW Lymph % (Auto) 4.2 L [place] % (Auto) 11.9 H Eos % (Auto) Lymph # (Auto) 0.6 L [place] # (Auto) 1.8 H Eos # (Auto) Seg Neutrophils % 82.0 H Lymphocytes % (Manual) Monocytes % (Manual) Seg Neutrophils # 12.4 H Seg Neutrophils # Man Lymphocytes # (Manual) Monocytes # (Manual) D-Dimer Heparin Anti-Xa Level ABG pH POC ABG pCO2 POC ABG pO2 ABG pO2 ABG HCO3 ABG O2 Saturation ABG Base Excess ABG Hemoglobin ABG Oxyhemoglobin ABG Sodium ABG Potassium ABG Chloride ABG Glucose VBG pH Oxyhemoglobin Carboxyhemoglobin Sodium Potassium Chloride Carbon Dioxide BUN Creatinine Glucose POC Glucose 136 H Lactic Acid Calcium Phosphorus Magnesium Total Bilirubin AST ALT Ammonia Lactate Dehydrogenase Total Creatine Kinase CK-MB (CK-2) Troponin T NT-Pro-B Natriuret Pep Total Protein Albumin Triglycerides TSH Arterial Blood Glucose Arterial Blood Ionized Calcium Urine pH Urine WBC (Auto) Urine Creatinine 93.7 H 10/19/20 10/19/20 10/20/20 17:53 23:39 04:30 WBC RBC Hgb Hct RDW Lymph % (Auto) [place] % (Auto) Eos % (Auto) Lymph # (Auto) [place] # (Auto) Eos # (Auto) Seg Neutrophils % Lymphocytes % (Manual) Monocytes % (Manual) Seg Neutrophils # Seg Neutrophils # Man Lymphocytes # (Manual) Monocytes # (Manual) D-Dimer Heparin Anti-Xa Level ABG pH POC ABG pCO2 POC ABG pO2 ABG pO2 ABG HCO3 ABG O2 Saturation ABG Base Excess ABG Hemoglobin ABG Oxyhemoglobin ABG Sodium ABG Potassium ABG Chloride ABG Glucose VBG pH Oxyhemoglobin Carboxyhemoglobin Sodium Potassium Chloride Carbon Dioxide BUN 104 H Creatinine 2.8 H Glucose 151 H POC Glucose 137 H 133 H Lactic Acid Calcium Phosphorus Magnesium Total Bilirubin AST ALT Ammonia Lactate Dehydrogenase Total Creatine Kinase CK-MB (CK-2) Troponin T NT-Pro-B Natriuret Pep Total Protein Albumin Triglycerides TSH Arterial Blood Glucose Arterial Blood Ionized Calcium Urine pH Urine WBC (Auto) Urine Creatinine 10/20/20 10/20/20 10/20/20 04:30 05:38 11:34 WBC 17.9 H RBC Hgb 11.7 L Hct RDW Lymph % (Auto) [place] % (Auto) Eos % (Auto) Lymph # (Auto) [place] # (Auto) Eos # (Auto) Seg Neutrophils % Lymphocytes % (Manual) Monocytes % (Manual) Seg Neutrophils # Seg Neutrophils # Man Lymphocytes # (Manual) Monocytes # (Manual) D-Dimer Heparin Anti-Xa Level ABG pH POC ABG pCO2 POC ABG pO2 ABG pO2 ABG HCO3 ABG O2 Saturation ABG Base Excess ABG Hemoglobin ABG Oxyhemoglobin ABG Sodium ABG Potassium ABG Chloride ABG Glucose VBG pH Oxyhemoglobin Carboxyhemoglobin Sodium Potassium Chloride Carbon Dioxide BUN Creatinine Glucose POC Glucose 164 H 148 H Lactic Acid Calcium Phosphorus Magnesium Total Bilirubin AST ALT Ammonia Lactate Dehydrogenase Total Creatine Kinase CK-MB (CK-2) Troponin T NT-Pro-B Natriuret Pep Total Protein Albumin Triglycerides TSH Arterial Blood Glucose Arterial Blood Ionized Calcium Urine pH Urine WBC (Auto) Urine Creatinine 10/20/20 10/20/20 10/20/20 17:40 20:20 23:29 WBC RBC Hgb Hct RDW Lymph % (Auto) [place] % (Auto) Eos % (Auto) Lymph # (Auto) [place] # (Auto) Eos # (Auto) Seg Neutrophils % Lymphocytes % (Manual) Monocytes % (Manual) Seg Neutrophils # Seg Neutrophils # Man Lymphocytes # (Manual) Monocytes # (Manual) D-Dimer Heparin Anti-Xa Level ABG pH 7.292 L POC ABG pCO2 68.5 H POC ABG pO2 ABG pO2 ABG HCO3 ABG O2 Saturation ABG Base Excess ABG Hemoglobin 11.6 L ABG Oxyhemoglobin ABG Sodium ABG Potassium ABG Chloride ABG Glucose 145 H VBG pH Oxyhemoglobin Carboxyhemoglobin Sodium Potassium Chloride Carbon Dioxide BUN Creatinine Glucose POC Glucose 130 H 136 H Lactic Acid Calcium Phosphorus Magnesium Total Bilirubin AST ALT Ammonia Lactate Dehydrogenase Total Creatine Kinase CK-MB (CK-2) Troponin T NT-Pro-B Natriuret Pep Total Protein Albumin Triglycerides TSH Arterial Blood Glucose 145 H Arterial Blood Ionized Calcium Urine pH Urine WBC (Auto) Urine Creatinine 10/21/20 10/21/20 10/21/20 04:20 06:26 06:30 WBC RBC Hgb Hct RDW Lymph % (Auto) [place] % (Auto) Eos % (Auto) Lymph # (Auto) [place] # (Auto) Eos # (Auto) Seg Neutrophils % Lymphocytes % (Manual) Monocytes % (Manual) Seg Neutrophils # Seg Neutrophils # Man Lymphocytes # (Manual) Monocytes # (Manual) D-Dimer Heparin Anti-Xa Level ABG pH 7.262 L POC ABG pCO2 72.4 H POC ABG pO2 81.6 L ABG pO2 ABG HCO3 ABG O2 Saturation ABG Base Excess ABG Hemoglobin 11.6 L ABG Oxyhemoglobin ABG Sodium ABG Potassium ABG Chloride ABG Glucose 140 H VBG pH Oxyhemoglobin Carboxyhemoglobin Sodium Potassium Chloride Carbon Dioxide 33 H BUN 104 H Creatinine 2.9 H Glucose 153 H POC Glucose 128 H Lactic Acid Calcium Phosphorus Magnesium Total Bilirubin AST ALT Ammonia Lactate Dehydrogenase Total Creatine Kinase CK-MB (CK-2) Troponin T NT-Pro-B Natriuret Pep Total Protein Albumin Triglycerides TSH Arterial Blood Glucose 140 H Arterial Blood Ionized Calcium Urine pH Urine WBC (Auto) Urine Creatinine 10/21/20 10/21/20 10/21/20 06:30 11:24 17:21 WBC 13.3 H RBC Hgb 10.7 L Hct 32.7 L RDW Lymph % (Auto) [place] % (Auto) Eos % (Auto) Lymph # (Auto) [place] # (Auto) Eos # (Auto) Seg Neutrophils % Lymphocytes % (Manual) Monocytes % (Manual) Seg Neutrophils # Seg Neutrophils # Man Lymphocytes # (Manual) Monocytes # (Manual) D-Dimer Heparin Anti-Xa Level ABG pH POC ABG pCO2 POC ABG pO2 ABG pO2 ABG HCO3 ABG O2 Saturation ABG Base Excess ABG Hemoglobin ABG Oxyhemoglobin ABG Sodium ABG Potassium ABG Chloride ABG Glucose VBG pH Oxyhemoglobin Carboxyhemoglobin Sodium Potassium Chloride Carbon Dioxide BUN Creatinine Glucose POC Glucose 178 H 138 H Lactic Acid Calcium Phosphorus Magnesium Total Bilirubin AST ALT Ammonia Lactate Dehydrogenase Total Creatine Kinase CK-MB (CK-2) Troponin T NT-Pro-B Natriuret Pep Total Protein Albumin Triglycerides TSH Arterial Blood Glucose Arterial Blood Ionized Calcium Urine pH Urine WBC (Auto) Urine Creatinine 10/22/20 10/22/20 10/22/20 00:05 04:30 06:15 WBC RBC Hgb Hct RDW Lymph % (Auto) [place] % (Auto) Eos % (Auto) Lymph # (Auto) [place] # (Auto) Eos # (Auto) Seg Neutrophils % Lymphocytes % (Manual) Monocytes % (Manual) Seg Neutrophils # Seg Neutrophils # Man Lymphocytes # (Manual) Monocytes # (Manual) D-Dimer Heparin Anti-Xa Level ABG pH 7.225 L POC ABG pCO2 76.6 H POC ABG pO2 ABG pO2 ABG HCO3 ABG O2 Saturation ABG Base Excess ABG Hemoglobin 11.1 L ABG Oxyhemoglobin ABG Sodium ABG Potassium ABG Chloride ABG Glucose 151 H VBG pH Oxyhemoglobin Carboxyhemoglobin Sodium Potassium Chloride Carbon Dioxide 32 H BUN 103 H Creatinine 2.7 H Glucose 151 H POC Glucose 135 H Lactic Acid Calcium Phosphorus Magnesium Total Bilirubin AST ALT Ammonia Lactate Dehydrogenase Total Creatine Kinase CK-MB (CK-2) Troponin T NT-Pro-B Natriuret Pep Total Protein Albumin Triglycerides TSH Arterial Blood Glucose 151 H Arterial Blood Ionized Calcium Urine pH Urine WBC (Auto) Urine Creatinine 10/22/20 10/22/20 10/22/20 06:18 11:34 11:44 WBC RBC Hgb Hct RDW Lymph % (Auto) [place] % (Auto) Eos % (Auto) Lymph # (Auto) [place] # (Auto) Eos # (Auto) Seg Neutrophils % Lymphocytes % (Manual) Monocytes % (Manual) Seg Neutrophils # Seg Neutrophils # Man Lymphocytes # (Manual) Monocytes # (Manual) D-Dimer Heparin Anti-Xa Level ABG pH 7.278 L POC ABG pCO2 67.8 H POC ABG pO2 ABG pO2 ABG HCO3 ABG O2 Saturation ABG Base Excess ABG Hemoglobin 10.2 L ABG Oxyhemoglobin ABG Sodium ABG Potassium ABG Chloride ABG Glucose 172 H VBG pH Oxyhemoglobin Carboxyhemoglobin Sodium Potassium Chloride Carbon Dioxide BUN Creatinine Glucose POC Glucose 137 H 147 H Lactic Acid Calcium Phosphorus Magnesium Total Bilirubin AST ALT Ammonia Lactate Dehydrogenase Total Creatine Kinase CK-MB (CK-2) Troponin T NT-Pro-B Natriuret Pep Total Protein Albumin Triglycerides TSH Arterial Blood Glucose 172 H Arterial Blood Ionized Calcium Urine pH Urine WBC (Auto) Urine Creatinine 10/22/20 10/22/20 10/23/20 17:40 23:55 05:11 WBC RBC Hgb Hct RDW Lymph % (Auto) [place] % (Auto) Eos % (Auto) Lymph # (Auto) [place] # (Auto) Eos # (Auto) Seg Neutrophils % Lymphocytes % (Manual) Monocytes % (Manual) Seg Neutrophils # Seg Neutrophils # Man Lymphocytes # (Manual) Monocytes # (Manual) D-Dimer Heparin Anti-Xa Level ABG pH POC ABG pCO2 63.6 H POC ABG pO2 81.2 L ABG pO2 ABG HCO3 ABG O2 Saturation ABG Base Excess ABG Hemoglobin 10.6 L ABG Oxyhemoglobin ABG Sodium ABG Potassium ABG Chloride 109.0 H ABG Glucose 149 H VBG pH Oxyhemoglobin Carboxyhemoglobin Sodium Potassium Chloride Carbon Dioxide BUN Creatinine Glucose POC Glucose 141 H 139 H Lactic Acid Calcium Phosphorus Magnesium Total Bilirubin AST ALT Ammonia Lactate Dehydrogenase Total Creatine Kinase CK-MB (CK-2) Troponin T NT-Pro-B Natriuret Pep Total Protein Albumin Triglycerides TSH Arterial Blood Glucose 149 H Arterial Blood Ionized Calcium Urine pH Urine WBC (Auto) Urine Creatinine 10/23/20 10/23/20 10/23/20 05:39 06:00 11:32 WBC RBC Hgb Hct RDW Lymph % (Auto) [place] % (Auto) Eos % (Auto) Lymph # (Auto) [place] # (Auto) Eos # (Auto) Seg Neutrophils % Lymphocytes % (Manual) Monocytes % (Manual) Seg Neutrophils # Seg Neutrophils # Man Lymphocytes # (Manual) Monocytes # (Manual) D-Dimer Heparin Anti-Xa Level ABG pH POC ABG pCO2 POC ABG pO2 ABG pO2 ABG HCO3 ABG O2 Saturation ABG Base Excess ABG Hemoglobin ABG Oxyhemoglobin ABG Sodium ABG Potassium ABG Chloride ABG Glucose VBG pH Oxyhemoglobin Carboxyhemoglobin Sodium 146 H Potassium Chloride Carbon Dioxide 35 H BUN 92 H Creatinine 2.0 H Glucose 144 H POC Glucose 139 H 176 H Lactic Acid Calcium Phosphorus Magnesium Total Bilirubin AST ALT Ammonia Lactate Dehydrogenase Total Creatine Kinase CK-MB (CK-2) Troponin T NT-Pro-B Natriuret Pep Total Protein Albumin Triglycerides TSH Arterial Blood Glucose Arterial Blood Ionized Calcium Urine pH Urine WBC (Auto) Urine Creatinine 10/23/20 10/23/20 10/24/20 11:34 17:55 05:33 WBC RBC Hgb Hct RDW Lymph % (Auto) [place] % (Auto) Eos % (Auto) Lymph # (Auto) [place] # (Auto) Eos # (Auto) Seg Neutrophils % Lymphocytes % (Manual) Monocytes % (Manual) Seg Neutrophils # Seg Neutrophils # Man Lymphocytes # (Manual) Monocytes # (Manual) D-Dimer Heparin Anti-Xa Level ABG pH POC ABG pCO2 POC ABG pO2 ABG pO2 ABG HCO3 ABG O2 Saturation ABG Base Excess ABG Hemoglobin ABG Oxyhemoglobin ABG Sodium ABG Potassium ABG Chloride ABG Glucose VBG pH Oxyhemoglobin Carboxyhemoglobin Sodium 147 H Potassium Chloride Carbon Dioxide 32 H BUN 76 H Creatinine 1.7 H Glucose 172 H POC Glucose 173 H 135 H Lactic Acid Calcium Phosphorus Magnesium Total Bilirubin AST ALT Ammonia Lactate Dehydrogenase Total Creatine Kinase CK-MB (CK-2) Troponin T NT-Pro-B Natriuret Pep Total Protein Albumin Triglycerides TSH Arterial Blood Glucose Arterial Blood Ionized Calcium Urine pH Urine WBC (Auto) Urine Creatinine 10/24/20 10/24/20 10/24/20 05:41 12:09 18:09 WBC RBC Hgb Hct RDW Lymph % (Auto) [place] % (Auto) Eos % (Auto) Lymph # (Auto) [place] # (Auto) Eos # (Auto) Seg Neutrophils % Lymphocytes % (Manual) Monocytes % (Manual) Seg Neutrophils # Seg Neutrophils # Man Lymphocytes # (Manual) Monocytes # (Manual) D-Dimer Heparin Anti-Xa Level ABG pH POC ABG pCO2 POC ABG pO2 ABG pO2 ABG HCO3 ABG O2 Saturation ABG Base Excess ABG Hemoglobin ABG Oxyhemoglobin ABG Sodium ABG Potassium ABG Chloride ABG Glucose VBG pH Oxyhemoglobin Carboxyhemoglobin Sodium Potassium Chloride Carbon Dioxide BUN Creatinine Glucose POC Glucose 156 H 154 H 132 H Lactic Acid Calcium Phosphorus Magnesium Total Bilirubin AST ALT Ammonia Lactate Dehydrogenase Total Creatine Kinase CK-MB (CK-2) Troponin T NT-Pro-B Natriuret Pep Total Protein Albumin Triglycerides TSH Arterial Blood Glucose Arterial Blood Ionized Calcium Urine pH Urine WBC (Auto) Urine Creatinine 10/24/20 10/25/20 10/25/20 23:39 05:29 08:55 WBC RBC Hgb Hct RDW Lymph % (Auto) [place] % (Auto) Eos % (Auto) Lymph # (Auto) [place] # (Auto) Eos # (Auto) Seg Neutrophils % Lymphocytes % (Manual) Monocytes % (Manual) Seg Neutrophils # Seg Neutrophils # Man Lymphocytes # (Manual) Monocytes # (Manual) D-Dimer Heparin Anti-Xa Level ABG pH POC ABG pCO2 POC ABG pO2 ABG pO2 ABG HCO3 ABG O2 Saturation ABG Base Excess ABG Hemoglobin ABG Oxyhemoglobin ABG Sodium ABG Potassium ABG Chloride ABG Glucose VBG pH Oxyhemoglobin Carboxyhemoglobin Sodium 150 H Potassium Chloride 108.3 H Carbon Dioxide 32 H BUN 57 H Creatinine 1.5 H Glucose 142 H POC Glucose 131 H 142 H Lactic Acid Calcium Phosphorus Magnesium Total Bilirubin AST ALT Ammonia Lactate Dehydrogenase Total Creatine Kinase CK-MB (CK-2) Troponin T NT-Pro-B Natriuret Pep Total Protein Albumin Triglycerides TSH Arterial Blood Glucose Arterial Blood Ionized Calcium Urine pH Urine WBC (Auto) Urine Creatinine 10/25/20 10/25/20 10/25/20 08:55 11:08 18:10 WBC 14.3 H RBC 3.57 L Hgb 10.3 L Hct 31.6 L RDW Lymph % (Auto) [place] % (Auto) Eos % (Auto) Lymph # (Auto) [place] # (Auto) Eos # (Auto) Seg Neutrophils % Lymphocytes % (Manual) Monocytes % (Manual) Seg Neutrophils # Seg Neutrophils # Man Lymphocytes # (Manual) Monocytes # (Manual) D-Dimer Heparin Anti-Xa Level ABG pH POC ABG pCO2 52.3 H POC ABG pO2 ABG pO2 ABG HCO3 ABG O2 Saturation ABG Base Excess ABG Hemoglobin 11.2 L ABG Oxyhemoglobin ABG Sodium ABG Potassium ABG Chloride 108.0 H ABG Glucose 167 H VBG pH Oxyhemoglobin Carboxyhemoglobin Sodium Potassium Chloride Carbon Dioxide BUN Creatinine Glucose POC Glucose 157 H Lactic Acid Calcium Phosphorus Magnesium Total Bilirubin AST ALT Ammonia Lactate Dehydrogenase Total Creatine Kinase CK-MB (CK-2) Troponin T NT-Pro-B Natriuret Pep Total Protein Albumin Triglycerides TSH Arterial Blood Glucose 167 H Arterial Blood Ionized Calcium Urine pH Urine WBC (Auto) Urine Creatinine 10/25/20 10/26/20 10/26/20 18:20 00:20 06:08 WBC RBC Hgb Hct RDW Lymph % (Auto) [place] % (Auto) Eos % (Auto) Lymph # (Auto) [place] # (Auto) Eos # (Auto) Seg Neutrophils % Lymphocytes % (Manual) Monocytes % (Manual) Seg Neutrophils # Seg Neutrophils # Man Lymphocytes # (Manual) Monocytes # (Manual) D-Dimer Heparin Anti-Xa Level ABG pH POC ABG pCO2 POC ABG pO2 ABG pO2 ABG HCO3 ABG O2 Saturation ABG Base Excess ABG Hemoglobin ABG Oxyhemoglobin ABG Sodium ABG Potassium ABG Chloride ABG Glucose VBG pH Oxyhemoglobin Carboxyhemoglobin Sodium Potassium Chloride Carbon Dioxide BUN Creatinine Glucose POC Glucose 127 H 108 H 119 H Lactic Acid Calcium Phosphorus Magnesium Total Bilirubin AST ALT Ammonia Lactate Dehydrogenase Total Creatine Kinase CK-MB (CK-2) Troponin T NT-Pro-B Natriuret Pep Total Protein Albumin Triglycerides TSH Arterial Blood Glucose Arterial Blood Ionized Calcium Urine pH Urine WBC (Auto) Urine Creatinine 10/26/20 10/26/20 10/26/20 07:38 07:38 11:28 WBC 13.5 H RBC 3.37 L Hgb 9.8 L Hct 30.0 L RDW Lymph % (Auto) [place] % (Auto) Eos % (Auto) Lymph # (Auto) [place] # (Auto) Eos # (Auto) Seg Neutrophils % Lymphocytes % (Manual) Monocytes % (Manual) Seg Neutrophils # Seg Neutrophils # Man Lymphocytes # (Manual) Monocytes # (Manual) D-Dimer Heparin Anti-Xa Level ABG pH POC ABG pCO2 POC ABG pO2 ABG pO2 ABG HCO3 ABG O2 Saturation ABG Base Excess ABG Hemoglobin ABG Oxyhemoglobin ABG Sodium ABG Potassium ABG Chloride ABG Glucose VBG pH Oxyhemoglobin Carboxyhemoglobin Sodium 149 H Potassium Chloride 107.6 H Carbon Dioxide 34 H BUN 49 H Creatinine 1.4 H Glucose 137 H POC Glucose 148 H Lactic Acid Calcium Phosphorus Magnesium Total Bilirubin AST ALT Ammonia Lactate Dehydrogenase Total Creatine Kinase CK-MB (CK-2) Troponin T NT-Pro-B Natriuret Pep Total Protein Albumin Triglycerides TSH Arterial Blood Glucose Arterial Blood Ionized Calcium Urine pH Urine WBC (Auto) Urine Creatinine 10/26/20 10/26/20 10/27/20 18:17 23:37 05:08 WBC RBC Hgb Hct RDW Lymph % (Auto) [place] % (Auto) Eos % (Auto) Lymph # (Auto) [place] # (Auto) Eos # (Auto) Seg Neutrophils % Lymphocytes % (Manual) Monocytes % (Manual) Seg Neutrophils # Seg Neutrophils # Man Lymphocytes # (Manual) Monocytes # (Manual) D-Dimer Heparin Anti-Xa Level ABG pH POC ABG pCO2 POC ABG pO2 ABG pO2 ABG HCO3 ABG O2 Saturation ABG Base Excess ABG Hemoglobin ABG Oxyhemoglobin ABG Sodium ABG Potassium ABG Chloride ABG Glucose VBG pH Oxyhemoglobin Carboxyhemoglobin Sodium Potassium Chloride Carbon Dioxide BUN Creatinine Glucose POC Glucose 121 H 152 H 120 H Lactic Acid Calcium Phosphorus Magnesium Total Bilirubin AST ALT Ammonia Lactate Dehydrogenase Total Creatine Kinase CK-MB (CK-2) Troponin T NT-Pro-B Natriuret Pep Total Protein Albumin Triglycerides TSH Arterial Blood Glucose Arterial Blood Ionized Calcium Urine pH Urine WBC (Auto) Urine Creatinine 10/27/20 10/27/20 10/27/20 07:30 07:30 11:59 WBC RBC 3.46 L Hgb 10.2 L Hct 30.9 L RDW Lymph % (Auto) [place] % (Auto) Eos % (Auto) Lymph # (Auto) [place] # (Auto) Eos # (Auto) Seg Neutrophils % Lymphocytes % (Manual) Monocytes % (Manual) Seg Neutrophils # Seg Neutrophils # Man Lymphocytes # (Manual) Monocytes # (Manual) D-Dimer Heparin Anti-Xa Level ABG pH POC ABG pCO2 POC ABG pO2 ABG pO2 ABG HCO3 ABG O2 Saturation ABG Base Excess ABG Hemoglobin ABG Oxyhemoglobin ABG Sodium ABG Potassium ABG Chloride ABG Glucose VBG pH Oxyhemoglobin Carboxyhemoglobin Sodium 146 H Potassium Chloride Carbon Dioxide 34 H BUN 45 H Creatinine Glucose 131 H POC Glucose 143 H Lactic Acid Calcium Phosphorus Magnesium Total Bilirubin AST ALT Ammonia Lactate Dehydrogenase Total Creatine Kinase CK-MB (CK-2) Troponin T NT-Pro-B Natriuret Pep Total Protein Albumin Triglycerides TSH Arterial Blood Glucose Arterial Blood Ionized Calcium Urine pH Urine WBC (Auto) Urine Creatinine 10/27/20 10/27/20 10/28/20 18:52 23:03 07:00 WBC RBC Hgb Hct RDW Lymph % (Auto) [place] % (Auto) Eos % (Auto) Lymph # (Auto) [place] # (Auto) Eos # (Auto) Seg Neutrophils % Lymphocytes % (Manual) Monocytes % (Manual) Seg Neutrophils # Seg Neutrophils # Man Lymphocytes # (Manual) Monocytes # (Manual) D-Dimer Heparin Anti-Xa Level ABG pH POC ABG pCO2 POC ABG pO2 ABG pO2 ABG HCO3 ABG O2 Saturation ABG Base Excess ABG Hemoglobin ABG Oxyhemoglobin ABG Sodium ABG Potassium ABG Chloride ABG Glucose VBG pH Oxyhemoglobin Carboxyhemoglobin Sodium 147 H Potassium Chloride Carbon Dioxide 35 H BUN 39 H Creatinine Glucose 133 H POC Glucose 119 H 158 H Lactic Acid Calcium Phosphorus Magnesium Total Bilirubin AST ALT Ammonia Lactate Dehydrogenase Total Creatine Kinase CK-MB (CK-2) Troponin T NT-Pro-B Natriuret Pep Total Protein Albumin Triglycerides TSH Arterial Blood Glucose Arterial Blood Ionized Calcium Urine pH Urine WBC (Auto) Urine Creatinine 10/28/20 10/28/20 10/28/20 09:00 11:47 17:15 WBC 12.5 H RBC 3.58 L Hgb 10.5 L Hct 32.1 L RDW Lymph % (Auto) [place] % (Auto) Eos % (Auto) Lymph # (Auto) [place] # (Auto) Eos # (Auto) Seg Neutrophils % Lymphocytes % (Manual) Monocytes % (Manual) Seg Neutrophils # Seg Neutrophils # Man Lymphocytes # (Manual) Monocytes # (Manual) D-Dimer Heparin Anti-Xa Level ABG pH POC ABG pCO2 POC ABG pO2 ABG pO2 ABG HCO3 ABG O2 Saturation ABG Base Excess ABG Hemoglobin ABG Oxyhemoglobin ABG Sodium ABG Potassium ABG Chloride ABG Glucose VBG pH Oxyhemoglobin Carboxyhemoglobin Sodium Potassium Chloride Carbon Dioxide BUN Creatinine Glucose POC Glucose 129 H 109 H Lactic Acid Calcium Phosphorus Magnesium Total Bilirubin AST ALT Ammonia Lactate Dehydrogenase Total Creatine Kinase CK-MB (CK-2) Troponin T NT-Pro-B Natriuret Pep Total Protein Albumin Triglycerides TSH Arterial Blood Glucose Arterial Blood Ionized Calcium Urine pH Urine WBC (Auto) Urine Creatinine 10/28/20 10/29/20 10/29/20 23:31 04:23 04:23 WBC 13.6 H RBC 3.47 L Hgb 10.5 L Hct 30.7 L RDW 15.4 H Lymph % (Auto) [place] % (Auto) Eos % (Auto) Lymph # (Auto) [place] # (Auto) Eos # (Auto) Seg Neutrophils % Lymphocytes % (Manual) Monocytes % (Manual) Seg Neutrophils # Seg Neutrophils # Man Lymphocytes # (Manual) Monocytes # (Manual) D-Dimer Heparin Anti-Xa Level ABG pH POC ABG pCO2 POC ABG pO2 ABG pO2 ABG HCO3 ABG O2 Saturation ABG Base Excess ABG Hemoglobin ABG Oxyhemoglobin ABG Sodium ABG Potassium ABG Chloride ABG Glucose VBG pH Oxyhemoglobin Carboxyhemoglobin Sodium Potassium Chloride Carbon Dioxide 35 H BUN 34 H Creatinine Glucose 107 H POC Glucose 138 H Lactic Acid Calcium Phosphorus Magnesium Total Bilirubin AST ALT Ammonia Lactate Dehydrogenase Total Creatine Kinase CK-MB (CK-2) Troponin T NT-Pro-B Natriuret Pep Total Protein Albumin Triglycerides TSH Arterial Blood Glucose Arterial Blood Ionized Calcium Urine pH Urine WBC (Auto) Urine Creatinine 10/29/20 10/29/20 10/29/20 05:21 11:49 23:19 WBC RBC Hgb Hct RDW Lymph % (Auto) [place] % (Auto) Eos % (Auto) Lymph # (Auto) [place] # (Auto) Eos # (Auto) Seg Neutrophils % Lymphocytes % (Manual) Monocytes % (Manual) Seg Neutrophils # Seg Neutrophils # Man Lymphocytes # (Manual) Monocytes # (Manual) D-Dimer Heparin Anti-Xa Level ABG pH POC ABG pCO2 POC ABG pO2 ABG pO2 ABG HCO3 ABG O2 Saturation ABG Base Excess ABG Hemoglobin ABG Oxyhemoglobin ABG Sodium ABG Potassium ABG Chloride ABG Glucose VBG pH Oxyhemoglobin Carboxyhemoglobin Sodium Potassium Chloride Carbon Dioxide BUN Creatinine Glucose POC Glucose 115 H 124 H 129 H Lactic Acid Calcium Phosphorus Magnesium Total Bilirubin AST ALT Ammonia Lactate Dehydrogenase Total Creatine Kinase CK-MB (CK-2) Troponin T NT-Pro-B Natriuret Pep Total Protein Albumin Triglycerides TSH Arterial Blood Glucose Arterial Blood Ionized Calcium Urine pH Urine WBC (Auto) Urine Creatinine 10/30/20 10/30/20 10/30/20 04:59 05:10 11:52 WBC RBC Hgb Hct RDW Lymph % (Auto) [place] % (Auto) Eos % (Auto) Lymph # (Auto) [place] # (Auto) Eos # (Auto) Seg Neutrophils % Lymphocytes % (Manual) Monocytes % (Manual) Seg Neutrophils # Seg Neutrophils # Man Lymphocytes # (Manual) Monocytes # (Manual) D-Dimer Heparin Anti-Xa Level ABG pH POC ABG pCO2 POC ABG pO2 ABG pO2 ABG HCO3 ABG O2 Saturation ABG Base Excess ABG Hemoglobin ABG Oxyhemoglobin ABG Sodium ABG Potassium ABG Chloride ABG Glucose VBG pH Oxyhemoglobin Carboxyhemoglobin Sodium Potassium Chloride Carbon Dioxide 34 H BUN 33 H Creatinine Glucose 128 H POC Glucose 126 H 132 H Lactic Acid Calcium Phosphorus Magnesium Total Bilirubin AST ALT Ammonia Lactate Dehydrogenase Total Creatine Kinase CK-MB (CK-2) Troponin T NT-Pro-B Natriuret Pep Total Protein Albumin Triglycerides TSH Arterial Blood Glucose Arterial Blood Ionized Calcium Urine pH Urine WBC (Auto) Urine Creatinine 10/30/20 10/30/20 10/31/20 16:59 23:19 04:00 WBC RBC Hgb Hct RDW Lymph % (Auto) [place] % (Auto) Eos % (Auto) Lymph # (Auto) [place] # (Auto) Eos # (Auto) Seg Neutrophils % Lymphocytes % (Manual) Monocytes % (Manual) Seg Neutrophils # Seg Neutrophils # Man Lymphocytes # (Manual) Monocytes # (Manual) D-Dimer Heparin Anti-Xa Level ABG pH POC ABG pCO2 POC ABG pO2 ABG pO2 ABG HCO3 ABG O2 Saturation ABG Base Excess ABG Hemoglobin ABG Oxyhemoglobin ABG Sodium ABG Potassium ABG Chloride ABG Glucose VBG pH Oxyhemoglobin Carboxyhemoglobin Sodium Potassium Chloride Carbon Dioxide 38 H BUN 32 H Creatinine Glucose 121 H POC Glucose 118 H 138 H Lactic Acid Calcium Phosphorus Magnesium Total Bilirubin AST ALT Ammonia Lactate Dehydrogenase Total Creatine Kinase CK-MB (CK-2) Troponin T NT-Pro-B Natriuret Pep Total Protein Albumin Triglycerides TSH Arterial Blood Glucose Arterial Blood Ionized Calcium Urine pH Urine WBC (Auto) Urine Creatinine 10/31/20 10/31/20 10/31/20 05:13 11:09 16:17 WBC RBC Hgb Hct RDW Lymph % (Auto) [place] % (Auto) Eos % (Auto) Lymph # (Auto) [place] # (Auto) Eos # (Auto) Seg Neutrophils % Lymphocytes % (Manual) Monocytes % (Manual) Seg Neutrophils # Seg Neutrophils # Man Lymphocytes # (Manual) Monocytes # (Manual) D-Dimer Heparin Anti-Xa Level ABG pH POC ABG pCO2 71.1 H POC ABG pO2 67.4 L ABG pO2 ABG HCO3 ABG O2 Saturation ABG Base Excess ABG Hemoglobin 10.9 L ABG Oxyhemoglobin 90.7 L ABG Sodium ABG Potassium ABG Chloride ABG Glucose 134 H VBG pH Oxyhemoglobin Carboxyhemoglobin Sodium Potassium Chloride Carbon Dioxide BUN Creatinine Glucose POC Glucose 110 H 138 H Lactic Acid Calcium Phosphorus Magnesium Total Bilirubin AST ALT Ammonia Lactate Dehydrogenase Total Creatine Kinase CK-MB (CK-2) Troponin T NT-Pro-B Natriuret Pep Total Protein Albumin Triglycerides TSH Arterial Blood Glucose 134 H Arterial Blood Ionized Calcium Urine pH Urine WBC (Auto) Urine Creatinine 10/31/20 10/31/20 11/01/20 18:16 23:56 04:09 WBC 11.3 H RBC 3.05 L Hgb 9.0 L Hct 27.3 L RDW Lymph % (Auto) [place] % (Auto) Eos % (Auto) Lymph # (Auto) [place] # (Auto) Eos # (Auto) Seg Neutrophils % Lymphocytes % (Manual) Monocytes % (Manual) Seg Neutrophils # Seg Neutrophils # Man Lymphocytes # (Manual) Monocytes # (Manual) D-Dimer Heparin Anti-Xa Level ABG pH POC ABG pCO2 POC ABG pO2 ABG pO2 ABG HCO3 ABG O2 Saturation ABG Base Excess ABG Hemoglobin ABG Oxyhemoglobin ABG Sodium ABG Potassium ABG Chloride ABG Glucose VBG pH Oxyhemoglobin Carboxyhemoglobin Sodium Potassium Chloride Carbon Dioxide BUN Creatinine Glucose POC Glucose 135 H 122 H Lactic Acid Calcium Phosphorus Magnesium Total Bilirubin AST ALT Ammonia Lactate Dehydrogenase Total Creatine Kinase CK-MB (CK-2) Troponin T NT-Pro-B Natriuret Pep Total Protein Albumin Triglycerides TSH Arterial Blood Glucose Arterial Blood Ionized Calcium Urine pH Urine WBC (Auto) Urine Creatinine 11/01/20 11/01/20 11/01/20 05:10 11:51 17:17 WBC RBC Hgb Hct RDW Lymph % (Auto) [place] % (Auto) Eos % (Auto) Lymph # (Auto) [place] # (Auto) Eos # (Auto) Seg Neutrophils % Lymphocytes % (Manual) Monocytes % (Manual) Seg Neutrophils # Seg Neutrophils # Man Lymphocytes # (Manual) Monocytes # (Manual) D-Dimer Heparin Anti-Xa Level ABG pH POC ABG pCO2 POC ABG pO2 ABG pO2 ABG HCO3 ABG O2 Saturation ABG Base Excess ABG Hemoglobin ABG Oxyhemoglobin ABG Sodium ABG Potassium ABG Chloride ABG Glucose VBG pH Oxyhemoglobin Carboxyhemoglobin Sodium Potassium Chloride Carbon Dioxide BUN Creatinine Glucose POC Glucose 123 H 123 H 120 H Lactic Acid Calcium Phosphorus Magnesium Total Bilirubin AST ALT Ammonia Lactate Dehydrogenase Total Creatine Kinase CK-MB (CK-2) Troponin T NT-Pro-B Natriuret Pep Total Protein Albumin Triglycerides TSH Arterial Blood Glucose Arterial Blood Ionized Calcium Urine pH Urine WBC (Auto) Urine Creatinine 11/02/20 11/02/20 11/02/20 03:14 05:37 05:37 WBC RBC Hgb 9.8 L Hct 29.5 L RDW Lymph % (Auto) [place] % (Auto) Eos % (Auto) Lymph # (Auto) [place] # (Auto) Eos # (Auto) Seg Neutrophils % Lymphocytes % (Manual) Monocytes % (Manual) Seg Neutrophils # Seg Neutrophils # Man Lymphocytes # (Manual) Monocytes # (Manual) D-Dimer Heparin Anti-Xa Level ABG pH POC ABG pCO2 58.9 H POC ABG pO2 79.9 L ABG pO2 ABG HCO3 ABG O2 Saturation ABG Base Excess ABG Hemoglobin 10.6 L ABG Oxyhemoglobin ABG Sodium ABG Potassium ABG Chloride ABG Glucose 110 H VBG pH Oxyhemoglobin Carboxyhemoglobin Sodium Potassium Chloride Carbon Dioxide 37 H BUN 28 H Creatinine Glucose 106 H POC Glucose Lactic Acid Calcium Phosphorus Magnesium Total Bilirubin AST ALT Ammonia Lactate Dehydrogenase Total Creatine Kinase CK-MB (CK-2) Troponin T NT-Pro-B Natriuret Pep Total Protein Albumin Triglycerides TSH Arterial Blood Glucose 110 H Arterial Blood Ionized Calcium Urine pH Urine WBC (Auto) Urine Creatinine 11/02/20 11/03/20 11/03/20 23:29 04:45 04:45 WBC 11.8 H RBC 3.07 L Hgb 9.0 L Hct 27.2 L RDW Lymph % (Auto) 11.4 L [place] % (Auto) 9.5 H Eos % (Auto) Lymph # (Auto) [place] # (Auto) 1.1 H Eos # (Auto) Seg Neutrophils % 75.9 H Lymphocytes % (Manual) Monocytes % (Manual) Seg Neutrophils # 9.0 H Seg Neutrophils # Man Lymphocytes # (Manual) Monocytes # (Manual) D-Dimer Heparin Anti-Xa Level ABG pH POC ABG pCO2 POC ABG pO2 ABG pO2 ABG HCO3 ABG O2 Saturation ABG Base Excess ABG Hemoglobin ABG Oxyhemoglobin ABG Sodium ABG Potassium ABG Chloride ABG Glucose VBG pH Oxyhemoglobin Carboxyhemoglobin Sodium 146 H Potassium Chloride Carbon Dioxide 39 H BUN 26 H Creatinine Glucose POC Glucose 129 H Lactic Acid Calcium Phosphorus Magnesium Total Bilirubin AST ALT Ammonia Lactate Dehydrogenase Total Creatine Kinase CK-MB (CK-2) Troponin T NT-Pro-B Natriuret Pep Total Protein Albumin Triglycerides TSH Arterial Blood Glucose Arterial Blood Ionized Calcium Urine pH Urine WBC (Auto) Urine Creatinine 11/03/20 11/03/20 11/03/20 05:05 11:51 17:43 WBC RBC Hgb Hct RDW Lymph % (Auto) [place] % (Auto) Eos % (Auto) Lymph # (Auto) [place] # (Auto) Eos # (Auto) Seg Neutrophils % Lymphocytes % (Manual) Monocytes % (Manual) Seg Neutrophils # Seg Neutrophils # Man Lymphocytes # (Manual) Monocytes # (Manual) D-Dimer Heparin Anti-Xa Level ABG pH 7.452 H POC ABG pCO2 55.4 H POC ABG pO2 129.1 H ABG pO2 ABG HCO3 ABG O2 Saturation ABG Base Excess ABG Hemoglobin 9.3 L ABG Oxyhemoglobin ABG Sodium ABG Potassium ABG Chloride ABG Glucose 99 H VBG pH Oxyhemoglobin Carboxyhemoglobin 1.7 H Sodium Potassium Chloride Carbon Dioxide BUN Creatinine Glucose POC Glucose 131 H 125 H Lactic Acid Calcium Phosphorus Magnesium Total Bilirubin AST ALT Ammonia Lactate Dehydrogenase Total Creatine Kinase CK-MB (CK-2) Troponin T NT-Pro-B Natriuret Pep Total Protein Albumin Triglycerides TSH Arterial Blood Glucose 99 H Arterial Blood Ionized Calcium Urine pH Urine WBC (Auto) Urine Creatinine 11/03/20 11/04/20 11/04/20 23:27 04:00 05:10 WBC RBC Hgb Hct RDW Lymph % (Auto) [place] % (Auto) Eos % (Auto) Lymph # (Auto) [place] # (Auto) Eos # (Auto) Seg Neutrophils % Lymphocytes % (Manual) Monocytes % (Manual) Seg Neutrophils # Seg Neutrophils # Man Lymphocytes # (Manual) Monocytes # (Manual) D-Dimer Heparin Anti-Xa Level ABG pH POC ABG pCO2 POC ABG pO2 ABG pO2 ABG HCO3 ABG O2 Saturation ABG Base Excess ABG Hemoglobin ABG Oxyhemoglobin ABG Sodium ABG Potassium ABG Chloride ABG Glucose VBG pH Oxyhemoglobin Carboxyhemoglobin Sodium Potassium Chloride 95.2 L Carbon Dioxide 40 H BUN 26 H Creatinine Glucose 128 H POC Glucose 148 H 126 H Lactic Acid Calcium Phosphorus Magnesium Total Bilirubin AST ALT Ammonia Lactate Dehydrogenase Total Creatine Kinase CK-MB (CK-2) Troponin T NT-Pro-B Natriuret Pep Total Protein Albumin Triglycerides TSH Arterial Blood Glucose Arterial Blood Ionized Calcium Urine pH Urine WBC (Auto) Urine Creatinine 11/04/20 11/04/20 11/04/20 11:39 18:00 21:18 WBC RBC Hgb Hct RDW Lymph % (Auto) [place] % (Auto) Eos % (Auto) Lymph # (Auto) [place] # (Auto) Eos # (Auto) Seg Neutrophils % Lymphocytes % (Manual) Monocytes % (Manual) Seg Neutrophils # Seg Neutrophils # Man Lymphocytes # (Manual) Monocytes # (Manual) D-Dimer Heparin Anti-Xa Level ABG pH 7.511 H POC ABG pCO2 49.0 H POC ABG pO2 ABG pO2 ABG HCO3 ABG O2 Saturation ABG Base Excess ABG Hemoglobin 9.5 L ABG Oxyhemoglobin ABG Sodium 135.7 L ABG Potassium ABG Chloride ABG Glucose 152 H VBG pH Oxyhemoglobin Carboxyhemoglobin Sodium Potassium Chloride Carbon Dioxide BUN Creatinine Glucose POC Glucose 142 H 130 H Lactic Acid Calcium Phosphorus Magnesium Total Bilirubin AST ALT Ammonia Lactate Dehydrogenase Total Creatine Kinase CK-MB (CK-2) Troponin T NT-Pro-B Natriuret Pep Total Protein Albumin Triglycerides TSH Arterial Blood Glucose 152 H Arterial Blood Ionized Calcium 4.3 L Urine pH Urine WBC (Auto) Urine Creatinine 11/04/20 11/05/20 11/05/20 23:19 03:30 03:30 WBC RBC 3.02 L Hgb 9.1 L Hct 26.7 L RDW Lymph % (Auto) [place] % (Auto) Eos % (Auto) Lymph # (Auto) [place] # (Auto) Eos # (Auto) Seg Neutrophils % Lymphocytes % (Manual) Monocytes % (Manual) Seg Neutrophils # Seg Neutrophils # Man Lymphocytes # (Manual) Monocytes # (Manual) D-Dimer Heparin Anti-Xa Level ABG pH POC ABG pCO2 POC ABG pO2 ABG pO2 ABG HCO3 ABG O2 Saturation ABG Base Excess ABG Hemoglobin ABG Oxyhemoglobin ABG Sodium ABG Potassium ABG Chloride ABG Glucose VBG pH Oxyhemoglobin Carboxyhemoglobin Sodium Potassium Chloride 93.6 L Carbon Dioxide 40 H BUN 24 H Creatinine Glucose 121 H POC Glucose 126 H Lactic Acid Calcium Phosphorus Magnesium Total Bilirubin AST ALT Ammonia Lactate Dehydrogenase Total Creatine Kinase CK-MB (CK-2) Troponin T NT-Pro-B Natriuret Pep Total Protein Albumin Triglycerides TSH Arterial Blood Glucose Arterial Blood Ionized Calcium Urine pH Urine WBC (Auto) Urine Creatinine 11/05/20 11/05/20 11/05/20 05:24 11:37 17:37 WBC RBC Hgb Hct RDW Lymph % (Auto) [place] % (Auto) Eos % (Auto) Lymph # (Auto) [place] # (Auto) Eos # (Auto) Seg Neutrophils % Lymphocytes % (Manual) Monocytes % (Manual) Seg Neutrophils # Seg Neutrophils # Man Lymphocytes # (Manual) Monocytes # (Manual) D-Dimer Heparin Anti-Xa Level ABG pH POC ABG pCO2 POC ABG pO2 ABG pO2 ABG HCO3 ABG O2 Saturation ABG Base Excess ABG Hemoglobin ABG Oxyhemoglobin ABG Sodium ABG Potassium ABG Chloride ABG Glucose VBG pH Oxyhemoglobin Carboxyhemoglobin Sodium Potassium Chloride Carbon Dioxide BUN Creatinine Glucose POC Glucose 124 H 125 H 153 H Lactic Acid Calcium Phosphorus Magnesium Total Bilirubin AST ALT Ammonia Lactate Dehydrogenase Total Creatine Kinase CK-MB (CK-2) Troponin T NT-Pro-B Natriuret Pep Total Protein Albumin Triglycerides TSH Arterial Blood Glucose Arterial Blood Ionized Calcium Urine pH Urine WBC (Auto) Urine Creatinine 11/05/20 11/06/20 11/06/20 23:20 05:24 12:17 WBC RBC Hgb Hct RDW Lymph % (Auto) [place] % (Auto) Eos % (Auto) Lymph # (Auto) [place] # (Auto) Eos # (Auto) Seg Neutrophils % Lymphocytes % (Manual) Monocytes % (Manual) Seg Neutrophils # Seg Neutrophils # Man Lymphocytes # (Manual) Monocytes # (Manual) D-Dimer Heparin Anti-Xa Level ABG pH POC ABG pCO2 POC ABG pO2 ABG pO2 ABG HCO3 ABG O2 Saturation ABG Base Excess ABG Hemoglobin ABG Oxyhemoglobin ABG Sodium ABG Potassium ABG Chloride ABG Glucose VBG pH Oxyhemoglobin Carboxyhemoglobin Sodium Potassium Chloride Carbon Dioxide BUN Creatinine Glucose POC Glucose 133 H 143 H 139 H Lactic Acid Calcium Phosphorus Magnesium Total Bilirubin AST ALT Ammonia Lactate Dehydrogenase Total Creatine Kinase CK-MB (CK-2) Troponin T NT-Pro-B Natriuret Pep Total Protein Albumin Triglycerides TSH Arterial Blood Glucose Arterial Blood Ionized Calcium Urine pH Urine WBC (Auto) Urine Creatinine 11/06/20 11/06/20 11/07/20 17:38 23:26 04:50 WBC RBC 3.24 L Hgb 9.6 L Hct 29.0 L RDW Lymph % (Auto) [place] % (Auto) 10.3 H Eos % (Auto) 6.9 H Lymph # (Auto) [place] # (Auto) Eos # (Auto) 0.5 H Seg Neutrophils % Lymphocytes % (Manual) Monocytes % (Manual) Seg Neutrophils # Seg Neutrophils # Man Lymphocytes # (Manual) Monocytes # (Manual) D-Dimer Heparin Anti-Xa Level ABG pH POC ABG pCO2 POC ABG pO2 ABG pO2 ABG HCO3 ABG O2 Saturation ABG Base Excess ABG Hemoglobin ABG Oxyhemoglobin ABG Sodium ABG Potassium ABG Chloride ABG Glucose VBG pH Oxyhemoglobin Carboxyhemoglobin Sodium Potassium Chloride Carbon Dioxide BUN Creatinine Glucose POC Glucose 139 H 117 H Lactic Acid Calcium Phosphorus Magnesium Total Bilirubin AST ALT Ammonia Lactate Dehydrogenase Total Creatine Kinase CK-MB (CK-2) Troponin T NT-Pro-B Natriuret Pep Total Protein Albumin Triglycerides TSH Arterial Blood Glucose Arterial Blood Ionized Calcium Urine pH Urine WBC (Auto) Urine Creatinine 11/07/20 11/07/20 04:50 05:10 WBC RBC Hgb Hct RDW Lymph % (Auto) [place] % (Auto) Eos % (Auto) Lymph # (Auto) [place] # (Auto) Eos # (Auto) Seg Neutrophils % Lymphocytes % (Manual) Monocytes % (Manual) Seg Neutrophils # Seg Neutrophils # Man Lymphocytes # (Manual) Monocytes # (Manual) D-Dimer Heparin Anti-Xa Level ABG pH POC ABG pCO2 POC ABG pO2 ABG pO2 ABG HCO3 ABG O2 Saturation ABG Base Excess ABG Hemoglobin ABG Oxyhemoglobin ABG Sodium ABG Potassium ABG Chloride ABG Glucose VBG pH Oxyhemoglobin Carboxyhemoglobin Sodium Potassium Chloride 97.2 L Carbon Dioxide 36 H BUN 25 H Creatinine Glucose 130 H POC Glucose 115 H Lactic Acid Calcium Phosphorus Magnesium Total Bilirubin AST ALT Ammonia Lactate Dehydrogenase Total Creatine Kinase CK-MB (CK-2) Troponin T NT-Pro-B Natriuret Pep Total Protein Albumin Triglycerides TSH Arterial Blood Glucose Arterial Blood Ionized Calcium Urine pH Urine WBC (Auto) Urine Creatinine Chest x-ray: other (none today) Allied health notes reviewed: nursing
[2020-11-07] MEDS: QUEtiapine 25 MG TAB PO SCH (13:28)
--- NOTE | 2020-11-07 16:07 | Progress Note ---
Assessment and Plan Assessment and plan: This is a 55-year-old male with hypertension, asthma, obesity who was admitted on 10/10 after cardiac arrest x2 (supposedly after COVID-19 vaccine injection), sepsis, right-sided pneumonia, NSTEMI type II, acute heart failure, acute hypoxic respiratory failure, acute kidney injury and anoxic brain injury. Sepsis s/p multiple Cardiac Arrests s/p right-sided pneumonia MRSA in tracheal aspirate NSTEMI type II Acute heart failure Afib/Aflutter Acute hypoxic respiratory failure Acute kidney injury (improved) Transaminitis HTN Obesity -Infectious disease, CCM, GI, nephrology, cardiology, surgery consulted, appreciate recommendations -Antibiotic therapy -10/18 recultured (blood/sputum/nasal discharge and urinalysis), tracheal aspirate with MRSA -S/p Linezolid -Continue antihypertensive regimen (changed to p.o.), titrate as needed -s/p IV amiodarone for A. fib/a flutter now on p.o. beta-shital -Trend CBC, BMP, LFT -trach/peg 10/27 -Resume SBT as tolerated and trach collar trials -Mucomyst for 5 days -Avoid nephrotoxic medications, strict intake and output, renal ultrasound shows no obstruction -10/10 echocardiogram shows left internal systolic function normal, moderate concentric left ventricle hypertrophy, mild to side diastolic dysfunction, LVEF 55 to 60% with no pericardial effusion -Bilateral Doppler ultrasound negative for DVT/SVT which shows bilateral popliteal cysts -MRI Brain shows restricted diffusion and increased T2 signal cerebral cortex which can be seen in the setting of anoxic brain injury and/ or status epilepticus. -Repeat EEG shows significant generalized slowing compatible with to moderate severe diffuse neuropathy recently compatible with anoxic/ischemic encephalopa thy -s/p D5W at 50ml/hr x 1 liter, currently on tube feedings and tolerating GI/DVT prophylaxis: SCDs to bilateral lower extremities while in bed, PPI, Heparin subq Dispo: Transfer to IMCU/ possible LTACH The high probability of a clinically significant, sudden or life threatening deterioration of the [multi] system(s) required my full and direct attention, intervention and personal management. The aggregate critical care time was [35] minutes. This time is in addition to time spent performing reported procedures but includes the following: [x] Data Review and interpretation [x] Patient assessment and monitoring of vital signs [x] Documentation [x] Medication orders and management History Interval history: This is a 55-year-old male with hypertension, asthma, obesity in the emergency by presented to the emergency department on 10/10 after receiving a Covid vaccine being found unresponsive in his car in the emergency room bay with no pulse and ACLS protocol was initiated from his car to emergency room #21 where it was continued. Patient was intubated after ROSC was achieved and a central line was placed and the patient was initiated on pressors. In the emergency room patient seems to have seizure-like activity and then collapsed and was unresponsive with no palpable pulse and ACLS was again initiated patient with achievement of ROSC. Patient again coded with ACLS protocol in the CT room. Upon arrival to the ICU patient again coded and ROSC was achieved and he was placed on epinephrine, Lasix, heparin and sodium bicarbonate drip and sedated with propofol. An NG tube was placed, A-line was placed. Patient was admitted to the hospitalist service with consult to CCM, nephrology, infectious disease and cardiology. 10/11: Patient COVID-19 PCR is pending and he remains on mechanical ventilation, examination on assist control 400/30/12/0.95. Patient is scheduled for an echocardiogram and we will obtain bilateral lower extremity Doppler ultrasound given elevated D-dimer. Patient was supposed to have a CTA chest when he coded yesterday. We will begin trickle feeding. This morning patient was on a heparin drip and was noted to have bloody drainage from his NG tube. Heparin drip was discontinued. 10/12: Patient remains on propofol and Lasix drip at the time my examination and he is on assist control 400/25/12/0.60. Patient is hypokalemic this morning which was repleted. Nephrology discontinued Lasix drip and Diamox. Patient is hypertensive and has been started on hydralazine and beta-shital IV. He has been titrated off his vasopressors since yesterday. Vancomycin discontinued. Patient is currently on cefepime and azithromycin. 10/13: Sedation vacation attempted today and patient was not responsive to verbal or painful stimuli, does not track or focus or follow commands. This morning the patient has some respiratory alkalosis on ABG, hypernatremia and metabolic alkalosis on BMP. His kidney functions has improved slightly. Patient still has leukocytosis and infectious disease was like to continue antibiotic therapy. GI evaluated the patient yesterday and started the patient on PPI does not plan to scope at this time. At the time my examination patient assist-control 400/20/12/0.40 and sedated on propofol at 20. 4/2: GI has recommended a CT abdomen since there is increased output from OG tube and an MRI brain without contrast has been ordered per neurology recommendations. EEG is pending and the patient has been started on Keppra per neurology.. Nutrition has been consulted for initiation of parenteral nutrition. Patient remains sedated with propofol and his hypernatremia, leukocytosis, acute kidney injury and metabolic alkalosis is improving. Patient has hypokalemia today which was repleted. At the time of my examination patient was on assist control 400/14/10/0.40 and CCM has dropped his rate to 12 and PEEP to 8. We have labs ordered for a.m. He was given a clonidine patch given persistent hypertension and he remains on D5 water per nephrology. 10/15: This morning patient was started to have a low-grade fever and he will continue antibiotic therapy per infectious disease. He will remove Tuttle catheter today and place a condom cath. Patient's renal function is worsening with a BUN/creatinine of 57/2.4 today and he has hyperphosphatemia at 5.2. This morning the time my examination patient is sedated on fentanyl and has TPN infusing. He is on assist control 400/12/8/0.35. Per GI we will start trial of tube feedings initiation has been reconsulted for orders. 10/18: Patient was febrile overnight and infectious disease has recultured (blood/sputum/right nostril culture) and sent in urinalysis. Cefepime was extended due to high fever and was started on vancomycin. Tube feeding is at goal and we will discontinue his parenteral nutrition. Patient is unable to obtain his MRI due to increased hypoxia and nasal secretions. He will be started on CPAP trials today. This time I examination patient was sedated on fentanyl and had PPN running at 42. His renal function tests have worsened and now has hyperchloremia. Hypernatremia has resolved. 10/19: Patient's T-max was 100.2 and he was pancultured yesterday, remains on antibiotic therapy and still has copious drainage from his nostrils. Patient still has leukocytosis however his/creatinine improved slightly to 3.1 from 3.3. Patient's urinalysis from yesterday shows pyuria. Patient's tracheal aspirate from yesterday grew Staph aureus. Patient is on cefepime and vancomycin. 10/20: This morning at the time my examination patient was CPAP trial of 04/19 and his T-max was 100.9. Patient sedated on fentanyl at 2 just received IV push fentanyl for tachycardia. Today his creatinine is 2.8 from 3.1 yesterday. Infectious disease has stopped cefepime and vancomycin and started linezolid and MRSA PCR is pending. Today removed his NG tube and replaced it with OG tube. We will keep the patient normal saline at 75 mL's per hour for 3 L. Patient developed A. fib/a flutter overnight and cardiology has increased his Lopressor and IV amiodarone. We requested neurology evaluation today. 10/21: Cardiology we will increase Lopressor to 3 times daily and discontinue his amiodarone drip. Infectious disease would like a sinus CT when feasible however patient did have a moment of desatting earlier this week when we attempted MRI brain. And again yesterday when we attempted a "trial run" with positioning at bedside Patient is on linezolid for 10 days per ID. 10/22/20; patient was seen and evaluated this morning, patient had low-grade fever overnight. Patient is on Lopressor per cardiology recommendation. Patient did not follow commands, no improvement in mental status. Evaluated by neurology yesterday and neurology once MRI or CAT scan but cannot be done because patient desats when he lies flat. Patient is on linezolid per ID recommendation. Continue NG tube feeding. Continue with Keppra. Patient is on assist control with PEEP of 6. Management plan was discussed with his yesterday. 10/23/2020; patient is on Zyvox for positive MRSA from tracheal aspirate and nasal secretion culture. Patient's mentation did not improve and does not follow commands. He was reevaluated by neurology and recommend MRI once patient is able to tolerate. MRI could not be done, CT scan could not be done because the patient could not lie flat. Clinically patient looks like she has anoxic encephalopathy. Patient is on NG tube feeding and on mechanical ventilation. Patient is on Keppra. Management plan was discussed with his . 10/24: This morning the patient is on AC TV 400,R 16, Peep 6 and FiO2 of 30% and sedated on 1mcg of Fentayl. He is hypernatremic and his kidney function tests have slightly improved. RN will attempt to obtain MRI Brain today since the brooke ent was able to tolerate a "trial run" of being flat. [facility] plans to resume CPAP trials once MRI obtained. 10/25: This morning the time of examination patient was on assist control tidal volume 400, rate 16, PEEP 6, FiO2 30% and he is currently on CPAP. His MRI brain finding is consistent with status epilepticus or anoxic brain injury. Patient is EEG pending. No acute overnight events reported. 10/26: Patient has been on a CPAP trial 14/6 which she has been tolerating. Surgery was consulted for trach/PEG. Patient's hypernatremia and hyperchloremia slightly better as well as his kidney functions. He has received cardiac clearance for his trach and PEG. No acute events reported overnight. 10/27: At the time my examination patient was on CPAP trial 15/6 and 30% FiO2. Patient's electrolyte abnormalities were improving and sources kidney function. His T-max overnight was 99.3 and he remains on linezolid. No acute events reported overnight. 10/28: Yesterday patient had a trach and PEG placed. Patient remains n.p.o. as he has not been cleared by surgery to resume p.o. intake. Today he has slight leukocytosis which is likely reactive, hyponatremia, metabolic alkalosis however his kidney function continues to improve. No acute events overnight. 10/29: Plan to start tube feeding today, patient remains on mechanical ventilation with trach tube. Remains comatose without any change in mental status. Called and updated. 10/30: Vitals stable, patient remains on trach tube with ventilator. Tolerating tube feeding, otherwise clinically unchanged. Continue to provide supportive care and wean off from vent as tolerated. 10/31: No acute events reported overnight. Patient is CPAP at the time my examination however he will be tried on trach collar and we will obtain an ABG w ithin 2 hours. 11/01. Patient is on a trach collar at 35% FiO2, he was reported, patient received Lasix and will obtain an ABG at 2100. dr. Uribe updated his and his mother is at bedside visiting him. 11/02. Patient was rested on assist control due to "tube feedings" endotracheal tube however CXR looks mild atelectasis rather than pneumonia. [facility] has given the patient another dose of Lasix and will obtain a CXR in the a.m. Patient remains with low-grade fever and we will resume daily SBT as tolerated. We will obtain a.m. labs and resume tube feedings. 11/03: Overnight the patient was rested on assist control and this afternoon he received CPAP trials. Patient's CXR looks pulmonary edema and he received additional 20 mg of Lasix today and tomorrow. Dr. Uribe updated the pa cecil's family via phone today and they do not wish to change his code status. Patient's Robinul and scopolamine was decreased. 11/04: Patient was started on Mucomyst due to thick secretion, will continue gentle diuresis and again began T-piece trials. Pa this time my examination he was on CPAP trial 10 and was rested overnight, assist control. According to documentation patient rested on CPAP trial yesterday for approximately 4-1/2 hours. No acute events reported overnight. 11/05 patient improved with Mucomyst. Attempted weaning to begin T-piece trial. Physical examination consistent with anoxia 11/06. No new events over p.m. Secretions appear to be controlled. Updated family today. All questions and concerns answered to family satisfaction. 11/07: T-piece trials to resume. No acute events overnight. Continue current care. PT/OT consult. Transfer to [facility]. Hospitalist Physical - Constitutional Vitals: Temp Pulse Resp BP Pulse Ox 98.6 F 79 30 H 132/90 96 11/07/20 12:46 11/07/20 13:28 11/07/20 09:30 11/07/20 13:28 11/07/20 09:30 General appearance: Present: no acute distress, other (Remains intubated ) - EENT Eyes: Present: PERRL ENT: poor dentition - Neck Neck: Present: normal ROM - Respiratory Respiratory effort: normal Respiratory: bilateral: rhonchi - Cardiovascular Rhythm: regular Heart Sounds: Present: S1 & S2. Absent: systolic murmur, diastolic murmur - Extremities Extremities: no ischemia, pulses intact, pulses symmetrical, normal temperature, normal color Peripheral Pulses: within normal limits - Abdominal General gastrointestinal: soft, non-tender, non-distended, normal bowel sounds - Integumentary Integumentary: Present: warm, dry - Psychiatric Psychiatric: other (does not fc, track/focus. localizes to pain) - Neurologic Neurologic: moves all extremities (spontanously) - Allied Health Allied health notes reviewed: nursing, RT, social work HEART Score - HEART Score EKG: Non-specific Age: 45-65 Troponin: Troponin T 0.125 ng/mL (0.00-0.029) H* D 10/12/20 04:00 Troponin: 1-3x normal limit - Critical Actions Critical Actions: 4-6 pts:12-16.6% risk of adverse cardiac event. Should be admitted Results - Labs CBC & Chem 7: 11/07/20 04:50 11/07/20 04:50 Labs: Laboratory Last Values WBC 7.6 K/mm3 (4.5-11.0) 11/07/20 04:50 RBC 3.24 M/mm3 (3.65-5.03) L 11/07/20 04:50 Hgb 9.6 gm/dl (11.8-15.2) L 11/07/20 04:50 Hct 29.0 % (35.5-45.6) L 11/07/20 04:50 MCV 90 fl (84-94) 11/07/20 04:50 MCH 30 pg (28-32) 11/07/20 04:50 MCHC 33 % (32-34) 11/07/20 04:50 RDW 15.2 % (13.2-15.2) 11/07/20 04:50 Plt Count 236 K/mm3 (140-440) 11/07/20 04:50 Lymph % (Auto) 19.1 % (13.4-35.0) 11/07/20 04:50 Meigs % (Auto) 10.3 % (0.0-7.3) H 11/07/20 04:50 Eos % (Auto) 6.9 % (0.0-4.3) H 11/07/20 04:50 Baso % (Auto) 0.6 % (0.0-1.8) 11/07/20 04:50 Lymph # (Auto) 1.5 K/mm3 (1.2-5.4) 11/07/20 04:50 Meigs # (Auto) 0.8 K/mm3 (0.0-0.8) 11/07/20 04:50 Eos # (Auto) 0.5 K/mm3 (0.0-0.4) H 11/07/20 04:50 Baso # (Auto) 0.0 K/mm3 (0.0-0.1) 11/07/20 04:50 Add Manual Diff Complete 10/10/20 18:18 Total Counted 100 10/10/20 18:18 Seg Neutrophils % 63.1 % (40.0-70.0) 11/07/20 04:50 Seg Neuts % (Manual) 60.0 % (40.0-70.0) 10/10/20 18:18 Band Neutrophils % 27.0 % 10/10/20 18:18 Lymphocytes % (Manual) 4.0 % (13.4-35.0) L 10/10/20 18:18 Monocytes % (Manual) 9.0 % (0.0-7.3) H 10/10/20 18:18 Eosinophils % (Manual) 4.0 % (0.0-4.3) 10/10/20 10:48 Metamyelocytes % 1.0 % 10/10/20 10:48 Nucleated RBC % Not Reportable 10/10/20 18:18 Seg Neutrophils # 4.8 K/mm3 (1.8-7.7) 11/07/20 04:50 Seg Neutrophils # Man 13.8 K/mm3 (1.8-7.7) H 10/10/20 18:18 Band Neutrophils # 6.2 K/mm3 10/10/20 18:18 Lymphocytes # (Manual) 0.9 K/mm3 (1.2-5.4) L 10/10/20 18:18 Abs React Lymphs (Man) 0.0 K/mm3 10/10/20 18:18 Monocytes # (Manual) 2.1 K/mm3 (0.0-0.8) H 10/10/20 18:18 Eosinophils # (Manual) 0.0 K/mm3 (0.0-0.4) 10/10/20 18:18 Basophils # (Manual) 0.0 K/mm3 (0.0-0.1) 10/10/20 18:18 Metamyelocytes # 0.0 K/mm3 10/10/20 18:18 Myelocytes # 0.0 K/mm3 10/10/20 18:18 Promyelocytes # 0.0 K/mm3 10/10/20 18:18 Blast Cells # 0.0 K/mm3 10/10/20 18:18 WBC Morphology Not Reportable 10/10/20 18:18 Hypersegmented Neuts Not Reportable 10/10/20 18:18 Hyposegmented Neuts Not Reportable 10/10/20 18:18 Hypogranular Neuts Not Reportable 10/10/20 18:18 Smudge Cells Not Reportable 10/10/20 18:18 Toxic Granulation Not Reportable 10/10/20 18:18 Toxic Vacuolation Not Reportable 10/10/20 18:18 Dohle Bodies Not Reportable 10/10/20 18:18 Pelger-Huet Anomaly Not Reportable 10/10/20 18:18 Dionicio Rods Not Reportable 10/10/20 18:18 Platelet Estimate Consistent w auto 10/10/20 18:18 Clumped Platelets Not Reportable 10/10/20 18:18 Plt Clumps, EDTA Not Reportable 10/10/20 18:18 Large Platelets Rare 10/10/20 18:18 Giant Platelets Rare 10/10/20 18:18 Platelet Satelliting Not Reportable 10/10/20 18:18 Plt Morphology Comment Not Reportable 10/10/20 18:18 RBC Morphology Not Reportable 10/10/20 18:18 Dimorphic RBCs Not Reportable 10/10/20 18:18 Polychromasia Not Reportable 10/10/20 18:18 Hypochromasia Not Reportable 10/10/20 18:18 Poikilocytosis Not Reportable 10/10/20 18:18 Anisocytosis Not Reportable 10/10/20 18:18 Microcytosis Not Reportable 10/10/20 18:18 Macrocytosis Not Reportable 10/10/20 18:18 Spherocytes Not Reportable 10/10/20 18:18 Pappenheimer Bodies Not Reportable 10/10/20 18:18 Sickle Cells Not Reportable 10/10/20 18:18 Target Cells Not Reportable 10/10/20 18:18 Tear Drop Cells Not Reportable 10/10/20 18:18 Ovalocytes Not Reportable 10/10/20 18:18 Helmet Cells Not Reportable 10/10/20 18:18 [place] Bodies Not Reportable 10/10/20 18:18 Brinnon Rings Not Reportable 10/10/20 18:18 Whitfield Cells Not Reportable 10/10/20 18:18 Bite Cells Not Reportable 10/10/20 18:18 Crenated Cell Not Reportable 10/10/20 18:18 Elliptocytes Not Reportable 10/10/20 18:18 Acanthocytes (Spur) Not Reportable 10/10/20 18:18 Rouleaux Not Reportable 10/10/20 18:18 Hemoglobin C Crystals Not Reportable 10/10/20 18:18 Schistocytes Not Reportable 10/10/20 18:18 Malaria parasites Not Reportable 10/10/20 18:18 Mauricio Bodies Not Reportable 10/10/20 18:18 Hem Pathologist Commnt No 10/10/20 18:18 PT 13.5 Sec. (12.2-14.9) 10/28/20 07:00 INR 1.05 (0.87-1.13) 10/28/20 07:00 APTT 26.9 Sec. (24.2-36.6) 10/10/20 18:18 D-Dimer 679.5 ng/mlDDU (0-234) H 10/10/20 10:48 Heparin Anti-Xa Level 0.22 U.I./ml (0.3-0.7) L 10/11/20 08:35 ABG pH 7.511 (7.320-7.450) H 11/04/20 21:18 POC ABG pCO2 49.0 mmHg (32.0-48.0) H 11/04/20 21:18 ABG pCO2 55.5 mm Hg 10/16/20 05:10 POC ABG pO2 88.5 mmHg (83-108) 11/04/20 21:18 ABG pO2 104.5 mm Hg (80.0-90.0) H 10/16/20 05:10 POC ABG HCO3 38.3 11/04/20 21:18 ABG HCO3 35.1 mmol/L (20.0-26.0) H 10/16/20 05:10 ABG O2 Saturation 96.9 (0-100) 11/04/20 21:18 ABG O2 Content 10.8 (0.0-44) 10/16/20 05:10 POC ABG Base Excess 13.8 11/04/20 21:18 ABG Base Excess 9.5 mmol/L (-2.0-3.0) H 10/16/20 05:10 ABG Hemoglobin 9.5 (12.0-17.5) L 11/04/20 21:18 ABG Oxyhemoglobin 95.9 (94-98) 11/04/20 21:18 ABG Carboxyhemoglobin 1.9 % (0.0-5.0) 10/16/20 05:10 ABG Methemoglobin 0.3 (0.0-1.5) 11/04/20 21:18 ABG Sodium 135.7 mmol/L (136.0-145.0) L 11/04/20 21:18 ABG Potassium 3.9 mmol/L (3.40-4.50) 11/04/20 21:18 ABG Chloride 98.0 mmol/L (98-107) 11/04/20 21:18 ABG Glucose 152 mg/dL (65-95) H 11/04/20 21:18 VBG pH 6.870 (7.320-7.420) L* 10/10/20 10:48 Oxyhemoglobin 95.3 % (95.0-99.0) 10/16/20 05:10 Carboxyhemoglobin 0.7 (0.5-1.5) 11/04/20 21:18 FiO2 35 % 10/16/20 05:10 FiO2 % 35.0 11/04/20 21:18 Sodium 139 mmol/L (137-145) 11/07/20 04:50 Potassium 4.4 mmol/L (3.6-5.0) 11/07/20 04:50 Chloride 97.2 mmol/L (98-107) L 11/07/20 04:50 Carbon Dioxide 36 mmol/L (22-30) H 11/07/20 04:50 Anion Gap 10 mmol/L 11/07/20 04:50 BUN 25 mg/dL (9-20) H 11/07/20 04:50 Creatinine 1.1 mg/dL (0.8-1.3) 11/07/20 04:50 Estimated GFR > 60 ml/min 11/07/20 04:50 BUN/Creatinine Ratio 23 % 11/07/20 04:50 Glucose 130 mg/dL (75-100) H 11/07/20 04:50 POC Glucose 118 mg/dL (70-105) H 11/07/20 12:22 Hemoglobin A1c 6.0 % (4-6) 10/11/20 02:00 Lactic Acid 1.10 mmol/L (0.7-2.0) 10/13/20 04:52 Calcium 8.9 mg/dL (8.4-10.2) 11/07/20 04:50 Phosphorus 5.20 mg/dL (2.5-4.5) H D 10/17/20 03:32 Magnesium 2.30 mg/dL (1.7-2.3) 10/17/20 03:32 Ferritin 81.4 ng/mL (30.0-300.0) 10/10/20 10:48 Total Bilirubin 1.70 mg/dL (0.1-1.2) H 10/18/20 03:27 AST 37 units/L (5-40) 10/18/20 03:27 ALT 32 units/L (7-56) 10/18/20 03:27 Alkaline Phosphatase 97 units/L (35-129) 10/18/20 03:27 Ammonia 214.0 umol/L (25-60) H 10/10/20 10:46 Lactate Dehydrogenase 386 units/L (91-180) H 10/10/20 10:48 Total Creatine Kinase 1192 units/L (55-170) H 10/10/20 18:18 CK-MB (CK-2) 21.7 ng/mL (0.0-4.0) H 10/10/20 18:18 CK-MB (CK-2) Rel Index 1.8 (0-4) 10/10/20 18:18 Troponin T 0.125 ng/mL (0.00-0.029) H* D 10/12/20 04:00 C-Reactive Protein 0.90 mg/dL (0.00-1.30) 10/10/20 10:48 NT-Pro-B Natriuret Pep 1187 pg/mL (0-900) H 10/10/20 10:46 Total Protein 6.3 g/dL (6.3-8.2) 10/18/20 03:27 Albumin 3.1 g/dL (3.9-5) L 10/18/20 03:27 Albumin/Globulin Ratio 1.0 % 10/18/20 03:27 Triglycerides 278 mg/dL (2-149) H 10/13/20 04:52 Cholesterol 138 mg/dL (50-199) 10/10/20 18:18 LDL Cholesterol Direct 76 mg/dL (50-130) 10/10/20 18:18 HDL Cholesterol 49 mg/dL (40-59) 10/10/20 18:18 Cholesterol/HDL Ratio 2.81 % 10/10/20 18:18 Procalcitonin 4.98 ng/mL (<0.15) 10/15/20 04:12 TSH 6.260 mlU/mL (0.270-4.200) H 10/10/20 10:46 Arterial Blood Glucose 152 mg/dL (65-95) H 11/04/20 21:18 Arterial Blood Ionized Calcium 4.3 mg/dL (4.6-5.3) L 11/04/20 21:18 Urine Color Angelica (Yellow) 10/18/20 Unknown Urine Turbidity Cloudy (Clear) 10/18/20 Unknown Urine pH 5.0 (5.0-7.0) 10/18/20 Unknown Ur Specific [place] 1.017 (1.003-1.030) 10/18/20 Unknown Urine Protein 100 mg/dl mg/dL (Negative) 10/18/20 Unknown Urine Glucose (UA) Neg mg/dL (Negative) 10/18/20 Unknown Urine Ketones Neg mg/dL (Negative) 10/18/20 Unknown Urine Blood Lg (Negative) 10/18/20 Unknown Urine Nitrite Neg (Negative) 10/18/20 Unknown Urine Bilirubin Neg (Negative) 10/18/20 Unknown Urine Urobilinogen 4.0 mg/dL (<2.0) 10/18/20 Unknown Ur Leukocyte Esterase Neg (Negative) 10/18/20 Unknown Urine WBC (Auto) 115.0 /HPF (0.0-6.0) H 10/18/20 Unknown Urine RBC (Auto) 98.0 /HPF (0.0-6.0) 10/18/20 Unknown U Epithel Cells (Auto) 2.0 /HPF (0-13.0) 10/18/20 Unknown Urine WBC Clumps 3+ /HPF 10/18/20 Unknown Urine Mucus Few /HPF 10/11/20 13:30 Urine Eosinophils None seen (None Seen) 10/11/20 13:30 Urine Creatinine 93.7 mg/dL (0.1-20.0) H 10/19/20 13:14 Urine Sodium 25 mmol/L 10/19/20 13:14 Urine Urea Nitrogen 845 10/19/20 13:14 Nasal Screen MRSA (PCR) Positive (Negative) 10/20/20 13:30 Random Vancomycin 5.8 ug/mL (0-40.0) 10/21/20 06:30 Urine Opiates Screen Negative 10/10/20 10:50 Urine Methadone Screen Negative 10/10/20 10:50 Ur Barbiturates Screen Negative 10/10/20 10:50 Ur Phencyclidine Scrn Negative 10/10/20 10:50 Ur Amphetamines Screen Negative 10/10/20 10:50 U Benzodiazepines Scrn Negative 10/10/20 10:50 Urine Cocaine Screen Negative 10/10/20 10:50 U Marijuana (THC) Screen Positive 10/10/20 10:50 Drugs of Abuse Note Disclamer 10/10/20 10:50 Plasma/Serum Alcohol < 0.01 % (0-0.07) 10/10/20 10:48 Coronavirus (PCR) Negative (Negative) 10/11/20 Unknown Blood Type AB POSITIVE 10/10/20 10:48 Antibody Screen Negative 10/10/20 10:48 Tuttle/IV: Voiding Method Incontinent Active Medications - Current Medications Current Medications: Generic Name Dose Route Start Last Admin Trade Name Freq PRN Reason Stop Dose Admin Acetaminophen 650 mg 10/10/20 21:51 10/20/20 09:11 Acetaminophen 325 Mg Tab PO 650 mg Q4H PRN Administration Pain MILD(1-3)/Fever >100.5/S[place]OR Acetaminophen 650 mg 10/11/20 11:24 10/17/20 17:16 Acetaminophen 650 Mg Rect Supp NV 650 mg Q6H PRN Administration Fever >101 Acetylcysteine 200 mg 11/04/20 16:00 11/07/20 07:31 Acetylcysteine 20% 200 Mg/1 Ml *For Inhalation Use* INHALATION 04/28/21 08:01 200 mg Q8HRT PEPITO Administration Albuterol 2.5 mg 10/11/20 13:12 11/07/20 07:30 Albuterol 2.5 Mg/3 Ml Nebu IH 2.5 mg Q6HRT PRN Administration Shortness Of Breath Amlodipine Besylate 10 mg 10/25/20 13:00 11/07/20 10:26 Amlodipine 10 Mg Tab PO 10 mg QDAY PEPITO Administration Lipase/Protease/Amylase 1 each 10/10/20 22:18 Lipase 10,500/Protease 25,000/Amylase 43,750 (Units) Dr Santana FEEDTUBE PRN PRN For Clogged Feeding Tube Clonidine HCl 0.3 mg 10/14/20 15:00 11/04/20 15:43 Clonidine Tts 0.3 Mg/24 Hr Patch TD 0.3 mg Fr PEPITO Administration Docusate Sodium 100 mg 10/16/20 22:00 11/07/20 10:26 Docusate Sodium 100 Mg/10 Ml Oral Liqd PO 100 mg BID PEPITO Administration Glycopyrrolate 1 mg 11/04/20 14:00 11/07/20 13:28 Glycopyrrolate 1 Mg Tab PO 1 mg Q8HR PEPITO Administration Heparin Sodium (Porcine) 5,000 unit 10/11/20 22:00 11/07/20 10:26 Heparin 5,000 Unit/1 Ml Vial SUB-Q 5,000 unit Q12HR PEPITO Administration Hydralazine HCl 100 mg 10/24/20 09:30 11/07/20 13:28 Hydralazine 25 Mg Tab PO 100 mg Q8HR PEPITO Administration Hydralazine HCl 10 mg 11/02/20 08:46 Hydralazine 20 Mg/1 Ml Inj IV Q6H PRN Hypertension Hydromorphone HCl 0.5 mg 11/01/20 20:55 11/02/20 21:00 Hydromorphone 1 Mg/1 Ml Inj IV 0.5 mg Q3H PRN Administration Pain , Severe (7-10) Hydrophilic Ointment 1 applic 10/10/20 10:34 Lip Therapy Vaseline TP Q2HR PRN Dry Lips Lansoprazole 30 mg 10/24/20 10:00 11/07/20 10:25 Lansoprazole 30 Mg Solutab FEEDTUBE 30 mg BID PEPITO Administration Levetiracetam 500 mg 10/31/20 10:00 11/07/20 10:26 Levetiracetam 500 Mg/5 Ml Oral Liqd PO 500 mg BID PEPITO Administration Lorazepam 1 mg 11/04/20 19:27 11/06/20 11:12 Lorazepam 2 Mg/Ml Vial IV 1 mg Q4H PRN Administration Agitation Metoclopramide HCl 10 mg 10/10/20 21:51 Metoclopramide 10 Mg/2 Ml Inj IV Q6H PRN Nausea And Vomiting Metoprolol Tartrate 100 mg 10/21/20 14:00 11/07/20 13:28 Metoprolol Tartrate 50 Mg Tab PO 100 mg TID PEPITO Administration Multi-Ingred Cream/Lotion/Oil/Oint 1 applic 10/10/20 10:34 Mineral Oil/Petrolatum, White Ophth Oint 3.5 Gm OU Q4HR PRN Dry Eye(s) Ondansetron HCl 4 mg 10/10/20 21:51 11/01/20 20:48 Ondansetron 4 Mg/2 Ml Inj IV 4 mg Q3H PRN Administration Nausea And Vomiting Polyethylene Glycol 17 gm 10/17/20 10:00 11/07/20 10:27 Polyethylene Glycol 3350 17 Gm Powder PO 17 gm QDAY PEPITO Administration Quetiapine Fumarate 100 mg 11/02/20 10:00 11/07/20 10:29 Quetiapine 100 Mg Tab PO 100 mg DAILY PEPITO Administration Quetiapine Fumarate 200 mg 11/07/20 22:00 Quetiapine 200 Mg Tab PO QHS PEPITO Quetiapine Fumarate 25 mg 11/07/20 14:00 11/07/20 13:28 Quetiapine 25 Mg Tab PO 25 mg DAILY PEPITO Administration Scopolamine 1 each 10/17/20 10:00 11/07/20 10:42 Scopolamine Transdermal Patch 72 Hr TD 1 each Q3D PEPITO Administration Simple Syrup 15 ml 10/10/20 22:18 Simple Syrup 15 Ml FEEDTUBE PRN PRN Hypoglycemia Simple Syrup 30 ml 10/10/20 22:18 Simple Syrup 15 Ml FEEDTUBE PRN PRN Hypoglycemia Sodium Bicarbonate 325 mg 10/10/20 22:18 Sodium Bicarbonate 325 Mg Tab FEEDTUBE PRN PRN For Clogged Feeding Tube Sodium Chloride 10 ml 10/10/20 22:00 11/07/20 10:28 Sodium Chloride 0.9% 10 Ml Flush Syringe IV 10 ml BID PEPITO Administration Sodium Chloride 10 ml 10/10/20 21:51 10/21/20 09:56 Sodium Chloride 0.9% 10 Ml Flush Syringe IV 10 ml PRN PRN Administration LINE FLUSH Nutrition/Malnutrition Assess - Dietary Evaluation Nutrition/Malnutrition Findings: Nutrition Notes Start: 10/11/20 08:38 Freq: Status: Active Protocol: Document 11/04/20 13:10 CW (Rec: 11/04/20 13:14 CW [id number]) Nutrition Notes Initial or Follow up Reassessment Current Diagnosis Acute Kidney Injury,Sepsis, Hypertension,Heart Failure, Respiratory Failure Other Pertinent Diagnosis GIB, pneu, MRSA [place], pulmonary edema Current Diet Promote at 80 ml/hr Labs/Tests BUN 26 Pertinent Medications Miralax Colace Lasix Height 6 ft Weight 135.8 kg [place] Body Weight (kg) 80.90 BMI 40.6 Weight change and time frame weight change d/t fluid overload Weight Status Morbidly Obese Subjective/Other Information F/U for TF tolerance and vent status. Pt remains on mechanical vent. TF running at goal and is being tolerated well. Percent of energy/protein needs met: 100%/74% Burn Absent Trauma Absent Difficulty In Swallowing Skin Integrity/Comment DTI to heel Current % PO Negligible Minimum of two criteria No Fluid Accumulation Mild (non-severe) #3 Nutrition Diagnosis Increased nutrient needs ( specify in comment below) Diagnosis Progress(for reassessment Continues documentation) #1 Nutrition Diagnosis Inadequate oral intake Diagnosis Progress(for reassessment Continues documentation) Is patient on ventilator? Yes Is Patient Ambulatory and/or Out of Bed No REE-([place]-confined to bed) 2692.656 Kcal/Kg value to use for calculation 15 Approximate Energy Requirements Using 2037 kcal/Kg Calculation Used for Recommendations Kcal/kg Additional Notes protein needs: >162g (>2 kgIBW of dry weight) fluid needs: 1 ml/kcal or per MD Nutrition Intervention Change Diet Order: Continue Nutrition Support: Promote at 80 ml/hr with a free water flush of 200 ml q4hr for hypernatremia. Once hypernatremia resolved, resume flush of 50 ml q4h. Kcal 1,920 Protein (gm) 120 Fluid (mL) 1,611 Goal #1 Tolerate TF Goal #2 Meet at least 70% of protein and 100% of kcal needs via TF Anticipated Discharge Needs: TF Follow-Up By: 11/09/20 Additional Comments F/U for TF tolerance, vent status
[2020-11-07] MEDS: HYDROmorphone 1 MG/1 ML INJ IV PRN (16:10)
[2020-11-07] MEDS: QUEtiapine 200 MG TAB PO SCH (22:57)
[2020-11-08] MEDS: ACETYLCYSTEINE 20% 200 MG/1 ML *FOR INHALATION USE INHALATION SCH ×3 (00:48→16:54)
[2020-11-08] MEDS: ALBUTEROL 2.5 MG/3 ML NEBU IH PRN ×3 (00:48→16:54)
[2020-11-08] MEDS: HYDROmorphone 1 MG/1 ML INJ IV PRN ×5 (04:53→21:21)
[2020-11-08] MEDS: GLYCOPYRROLATE 1 MG TAB PO SCH ×3 (05:01→21:09)
[2020-11-08] MEDS: hydrALAZINE 25 MG TAB PO SCH ×3 (05:01→21:08)
[2020-11-08] MEDS: amLODIPine 10 MG TAB PO SCH (09:33)
[2020-11-08] MEDS: METOPROLOL TARTRATE 50 MG TAB PO SCH ×3 (09:33→21:08)
[2020-11-08] MEDS: LANSOPRAZOLE 30 MG SOLUTAB FEEDTUBE SCH ×2 (09:33→21:09)
[2020-11-08] MEDS: DOCUSATE SODIUM 100 MG/10 ML ORAL LIQD PO SCH ×2 (09:33→21:08)
[2020-11-08] MEDS: HEPARIN 5,000 UNIT/1 ML VIAL SUB-Q SCH ×2 (09:33→21:08)
[2020-11-08] MEDS: levETIRAcetam 500 MG/5 ML ORAL LIQD PO SCH ×2 (09:33→21:09)
[2020-11-08] MEDS: QUEtiapine 25 MG TAB PO SCH (09:33)
[2020-11-08] MEDS: POLYETHYLENE GLYCOL 3350 17 GM POWDER PO SCH (09:34)
[2020-11-08] MEDS: QUEtiapine 100 MG TAB PO SCH (09:36)
--- NOTE | 2020-11-08 10:20 | Progress Note ---
Assessment and Plan Assessment and plan: This is a 55-year-old male with hypertension, asthma, obesity who was admitted on 10/10 after cardiac arrest x2 (supposedly after COVID-19 vaccine injection), sepsis, right-sided pneumonia, NSTEMI type II, acute heart failure, acute hypoxic respiratory failure, acute kidney injury and anoxic brain injury. Sepsis s/p multiple Cardiac Arrests s/p right-sided pneumonia MRSA in tracheal aspirate NSTEMI type II Acute heart failure Afib/Aflutter Acute hypoxic respiratory failure Acute kidney injury (improved) Transaminitis HTN Obesity -Infectious disease, CCM, GI, nephrology, cardiology, surgery consulted, appreciate recommendations -Antibiotic therapy -10/18 recultured (blood/sputum/nasal discharge and urinalysis), tracheal aspirate with MRSA -S/p Linezolid -Continue antihypertensive regimen (changed to p.o.), titrate as needed -s/p IV amiodarone for A. fib/a flutter now on p.o. beta-shital -Trend CBC, BMP, LFT -trach/peg 10/27 -Resume SBT as tolerated and trach collar trials -Mucomyst for 5 days -Avoid nephrotoxic medications, strict intake and output, renal ultrasound shows no obstruction -10/10 echocardiogram shows left internal systolic function normal, moderate concentric left ventricle hypertrophy, mild to side diastolic dysfunction, LVEF 55 to 60% with no pericardial effusion -Bilateral Doppler ultrasound negative for DVT/SVT which shows bilateral popliteal cysts -MRI Brain shows restricted diffusion and increased T2 signal cerebral cortex which can be seen in the setting of anoxic brain injury and/ or status epilepticus. -Repeat EEG shows significant generalized slowing compatible with to moderate severe diffuse neuropathy recently compatible with anoxic/ischemic encephalop athy -s/p D5W at 50ml/hr x 1 liter, currently on tube feedings and tolerating History Interval history: No new issues overnight. Hospitalist Physical - Constitutional Vitals: Temp Pulse Resp BP Pulse Ox 98.4 F 91 H 17 151/76 98 11/08/20 08:00 11/08/20 09:00 11/08/20 08:25 11/08/20 09:00 11/08/20 09:18 General appearance: Present: no acute distress, other (Remains intubated ) - EENT Eyes: Present: PERRL, EOM intact ENT: hearing intact, clear oral mucosa, dentition normal - Neck Neck: Present: supple, normal ROM - Respiratory Respiratory effort: normal Respiratory: bilateral: CTA - Cardiovascular Rhythm: regular Heart Sounds: Present: S1 & S2. Absent: gallop, rub - Extremities Extremities: no ischemia, No edema, Full ROM - Abdominal General gastrointestinal: soft, non-tender, non-distended, normal bowel sounds - Integumentary Integumentary: Present: clear, warm, dry - Neurologic Neurologic: CNII-XII intact, moves all extremities HEART Score - HEART Score EKG: Non-specific Age: 45-65 Troponin: Troponin T 0.125 ng/mL (0.00-0.029) H* D 10/12/20 04:00 Troponin: 1-3x normal limit - Critical Actions Critical Actions: 4-6 pts:12-16.6% risk of adverse cardiac event. Should be admitted Results - Labs CBC & Chem 7: 11/07/20 04:50 11/07/20 04:50 Labs: Laboratory Last Values WBC 7.6 K/mm3 (4.5-11.0) 11/07/20 04:50 RBC 3.24 M/mm3 (3.65-5.03) L 11/07/20 04:50 Hgb 9.6 gm/dl (11.8-15.2) L 11/07/20 04:50 Hct 29.0 % (35.5-45.6) L 11/07/20 04:50 MCV 90 fl (84-94) 11/07/20 04:50 MCH 30 pg (28-32) 11/07/20 04:50 MCHC 33 % (32-34) 11/07/20 04:50 RDW 15.2 % (13.2-15.2) 11/07/20 04:50 Plt Count 236 K/mm3 (140-440) 11/07/20 04:50 Lymph % (Auto) 19.1 % (13.4-35.0) 11/07/20 04:50 Kings % (Auto) 10.3 % (0.0-7.3) H 11/07/20 04:50 Eos % (Auto) 6.9 % (0.0-4.3) H 11/07/20 04:50 Baso % (Auto) 0.6 % (0.0-1.8) 11/07/20 04:50 Lymph # (Auto) 1.5 K/mm3 (1.2-5.4) 11/07/20 04:50 Kings # (Auto) 0.8 K/mm3 (0.0-0.8) 11/07/20 04:50 Eos # (Auto) 0.5 K/mm3 (0.0-0.4) H 11/07/20 04:50 Baso # (Auto) 0.0 K/mm3 (0.0-0.1) 11/07/20 04:50 Add Manual Diff Complete 10/10/20 18:18 Total Counted 100 10/10/20 18:18 Seg Neutrophils % 63.1 % (40.0-70.0) 11/07/20 04:50 Seg Neuts % (Manual) 60.0 % (40.0-70.0) 10/10/20 18:18 Band Neutrophils % 27.0 % 10/10/20 18:18 Lymphocytes % (Manual) 4.0 % (13.4-35.0) L 10/10/20 18:18 Monocytes % (Manual) 9.0 % (0.0-7.3) H 10/10/20 18:18 Eosinophils % (Manual) 4.0 % (0.0-4.3) 10/10/20 10:48 Metamyelocytes % 1.0 % 10/10/20 10:48 Nucleated RBC % Not Reportable 10/10/20 18:18 Seg Neutrophils # 4.8 K/mm3 (1.8-7.7) 11/07/20 04:50 Seg Neutrophils # Man 13.8 K/mm3 (1.8-7.7) H 10/10/20 18:18 Band Neutrophils # 6.2 K/mm3 10/10/20 18:18 Lymphocytes # (Manual) 0.9 K/mm3 (1.2-5.4) L 10/10/20 18:18 Abs React Lymphs (Man) 0.0 K/mm3 10/10/20 18:18 Monocytes # (Manual) 2.1 K/mm3 (0.0-0.8) H 10/10/20 18:18 Eosinophils # (Manual) 0.0 K/mm3 (0.0-0.4) 10/10/20 18:18 Basophils # (Manual) 0.0 K/mm3 (0.0-0.1) 10/10/20 18:18 Metamyelocytes # 0.0 K/mm3 10/10/20 18:18 Myelocytes # 0.0 K/mm3 10/10/20 18:18 Promyelocytes # 0.0 K/mm3 10/10/20 18:18 Blast Cells # 0.0 K/mm3 10/10/20 18:18 WBC Morphology Not Reportable 10/10/20 18:18 Hypersegmented Neuts Not Reportable 10/10/20 18:18 Hyposegmented Neuts Not Reportable 10/10/20 18:18 Hypogranular Neuts Not Reportable 10/10/20 18:18 Smudge Cells Not Reportable 10/10/20 18:18 Toxic Granulation Not Reportable 10/10/20 18:18 Toxic Vacuolation Not Reportable 10/10/20 18:18 Dohle Bodies Not Reportable 10/10/20 18:18 Pelger-Huet Anomaly Not Reportable 10/10/20 18:18 Dionicio Rods Not Reportable 10/10/20 18:18 Platelet Estimate Consistent w auto 10/10/20 18:18 Clumped Platelets Not Reportable 10/10/20 18:18 Plt Clumps, EDTA Not Reportable 10/10/20 18:18 Large Platelets Rare 10/10/20 18:18 Giant Platelets Rare 10/10/20 18:18 Platelet Satelliting Not Reportable 10/10/20 18:18 Plt Morphology Comment Not Reportable 10/10/20 18:18 RBC Morphology Not Reportable 10/10/20 18:18 Dimorphic RBCs Not Reportable 10/10/20 18:18 Polychromasia Not Reportable 10/10/20 18:18 Hypochromasia Not Reportable 10/10/20 18:18 Poikilocytosis Not Reportable 10/10/20 18:18 Anisocytosis Not Reportable 10/10/20 18:18 Microcytosis Not Reportable 10/10/20 18:18 Macrocytosis Not Reportable 10/10/20 18:18 Spherocytes Not Reportable 10/10/20 18:18 Pappenheimer Bodies Not Reportable 10/10/20 18:18 Sickle Cells Not Reportable 10/10/20 18:18 Target Cells Not Reportable 10/10/20 18:18 Tear Drop Cells Not Reportable 10/10/20 18:18 Ovalocytes Not Reportable 10/10/20 18:18 Helmet Cells Not Reportable 10/10/20 18:18 [place] Bodies Not Reportable 10/10/20 18:18 [place] Rings Not Reportable 10/10/20 18:18 [place] Cells Not Reportable 10/10/20 18:18 Bite Cells Not Reportable 10/10/20 18:18 Crenated Cell Not Reportable 10/10/20 18:18 Elliptocytes Not Reportable 10/10/20 18:18 Acanthocytes (Spur) Not Reportable 10/10/20 18:18 Rouleaux Not Reportable 10/10/20 18:18 Hemoglobin C Crystals Not Reportable 10/10/20 18:18 Schistocytes Not Reportable 10/10/20 18:18 Malaria parasites Not Reportable 10/10/20 18:18 Mauricio Bodies Not Reportable 10/10/20 18:18 Hem Pathologist Commnt No 10/10/20 18:18 PT 13.5 Sec. (12.2-14.9) 10/28/20 07:00 INR 1.05 (0.87-1.13) 10/28/20 07:00 APTT 26.9 Sec. (24.2-36.6) 10/10/20 18:18 D-Dimer 679.5 ng/mlDDU (0-234) H 10/10/20 10:48 Heparin Anti-Xa Level 0.22 U.I./ml (0.3-0.7) L 10/11/20 08:35 ABG pH 7.511 (7.320-7.450) H 11/04/20 21:18 POC ABG pCO2 49.0 mmHg (32.0-48.0) H 11/04/20 21:18 ABG pCO2 55.5 mm Hg 10/16/20 05:10 POC ABG pO2 88.5 mmHg (83-108) 11/04/20 21:18 ABG pO2 104.5 mm Hg (80.0-90.0) H 10/16/20 05:10 POC ABG HCO3 38.3 11/04/20 21:18 ABG HCO3 35.1 mmol/L (20.0-26.0) H 10/16/20 05:10 ABG O2 Saturation 96.9 (0-100) 11/04/20 21:18 ABG O2 Content 10.8 (0.0-44) 10/16/20 05:10 POC ABG Base Excess 13.8 11/04/20 21:18 ABG Base Excess 9.5 mmol/L (-2.0-3.0) H 10/16/20 05:10 ABG Hemoglobin 9.5 (12.0-17.5) L 11/04/20 21:18 ABG Oxyhemoglobin 95.9 (94-98) 11/04/20 21:18 ABG Carboxyhemoglobin 1.9 % (0.0-5.0) 10/16/20 05:10 ABG Methemoglobin 0.3 (0.0-1.5) 11/04/20 21:18 ABG Sodium 135.7 mmol/L (136.0-145.0) L 11/04/20 21:18 ABG Potassium 3.9 mmol/L (3.40-4.50) 11/04/20 21:18 ABG Chloride 98.0 mmol/L (98-107) 11/04/20 21:18 ABG Glucose 152 mg/dL (65-95) H 11/04/20 21:18 VBG pH 6.870 (7.320-7.420) L* 10/10/20 10:48 Oxyhemoglobin 95.3 % (95.0-99.0) 10/16/20 05:10 Carboxyhemoglobin 0.7 (0.5-1.5) 11/04/20 21:18 FiO2 35 % 10/16/20 05:10 FiO2 % 35.0 11/04/20 21:18 Sodium 139 mmol/L (137-145) 11/07/20 04:50 Potassium 4.4 mmol/L (3.6-5.0) 11/07/20 04:50 Chloride 97.2 mmol/L (98-107) L 11/07/20 04:50 Carbon Dioxide 36 mmol/L (22-30) H 11/07/20 04:50 Anion Gap 10 mmol/L 11/07/20 04:50 BUN 25 mg/dL (9-20) H 11/07/20 04:50 Creatinine 1.1 mg/dL (0.8-1.3) 11/07/20 04:50 Estimated GFR > 60 ml/min 11/07/20 04:50 BUN/Creatinine Ratio 23 % 11/07/20 04:50 Glucose 130 mg/dL (75-100) H 11/07/20 04:50 POC Glucose 141 mg/dL (70-105) H 11/07/20 23:53 Hemoglobin A1c 6.0 % (4-6) 10/11/20 02:00 Lactic Acid 1.10 mmol/L (0.7-2.0) 10/13/20 04:52 Calcium 8.9 mg/dL (8.4-10.2) 11/07/20 04:50 Phosphorus 5.20 mg/dL (2.5-4.5) H D 10/17/20 03:32 Magnesium 2.30 mg/dL (1.7-2.3) 10/17/20 03:32 Ferritin 81.4 ng/mL (30.0-300.0) 10/10/20 10:48 Total Bilirubin 1.70 mg/dL (0.1-1.2) H 10/18/20 03:27 AST 37 units/L (5-40) 10/18/20 03:27 ALT 32 units/L (7-56) 10/18/20 03:27 Alkaline Phosphatase 97 units/L (35-129) 10/18/20 03:27 Ammonia 214.0 umol/L (25-60) H 10/10/20 10:46 Lactate Dehydrogenase 386 units/L (91-180) H 10/10/20 10:48 Total Creatine Kinase 1192 units/L (55-170) H 10/10/20 18:18 CK-MB (CK-2) 21.7 ng/mL (0.0-4.0) H 10/10/20 18:18 CK-MB (CK-2) Rel Index 1.8 (0-4) 10/10/20 18:18 Troponin T 0.125 ng/mL (0.00-0.029) H* D 10/12/20 04:00 C-Reactive Protein 0.90 mg/dL (0.00-1.30) 10/10/20 10:48 NT-Pro-B Natriuret Pep 1187 pg/mL (0-900) H 10/10/20 10:46 Total Protein 6.3 g/dL (6.3-8.2) 10/18/20 03:27 Albumin 3.1 g/dL (3.9-5) L 10/18/20 03:27 Albumin/Globulin Ratio 1.0 % 10/18/20 03:27 Triglycerides 278 mg/dL (2-149) H 10/13/20 04:52 Cholesterol 138 mg/dL (50-199) 10/10/20 18:18 LDL Cholesterol Direct 76 mg/dL (50-130) 10/10/20 18:18 HDL Cholesterol 49 mg/dL (40-59) 10/10/20 18:18 Cholesterol/HDL Ratio 2.81 % 10/10/20 18:18 Procalcitonin 4.98 ng/mL (<0.15) 10/15/20 04:12 TSH 6.260 mlU/mL (0.270-4.200) H 10/10/20 10:46 Arterial Blood Glucose 152 mg/dL (65-95) H 11/04/20 21:18 Arterial Blood Ionized Calcium 4.3 mg/dL (4.6-5.3) L 11/04/20 21:18 Urine Color Angelica (Yellow) 10/18/20 Unknown Urine Turbidity Cloudy (Clear) 10/18/20 Unknown Urine pH 5.0 (5.0-7.0) 10/18/20 Unknown Ur Specific [place] 1.017 (1.003-1.030) 10/18/20 Unknown Urine Protein 100 mg/dl mg/dL (Negative) 10/18/20 Unknown Urine Glucose (UA) Neg mg/dL (Negative) 10/18/20 Unknown Urine Ketones Neg mg/dL (Negative) 10/18/20 Unknown Urine Blood Lg (Negative) 10/18/20 Unknown Urine Nitrite Neg (Negative) 10/18/20 Unknown Urine Bilirubin Neg (Negative) 10/18/20 Unknown Urine Urobilinogen 4.0 mg/dL (<2.0) 10/18/20 Unknown Ur Leukocyte Esterase Neg (Negative) 10/18/20 Unknown Urine WBC (Auto) 115.0 /HPF (0.0-6.0) H 10/18/20 Unknown Urine RBC (Auto) 98.0 /HPF (0.0-6.0) 10/18/20 Unknown U Epithel Cells (Auto) 2.0 /HPF (0-13.0) 10/18/20 Unknown Urine WBC Clumps 3+ /HPF 10/18/20 Unknown Urine Mucus Few /HPF 10/11/20 13:30 Urine Eosinophils None seen (None Seen) 10/11/20 13:30 Urine Creatinine 93.7 mg/dL (0.1-20.0) H 10/19/20 13:14 Urine Sodium 25 mmol/L 10/19/20 13:14 Urine Urea Nitrogen 845 10/19/20 13:14 Nasal Screen MRSA (PCR) Positive (Negative) 10/20/20 13:30 Random Vancomycin 5.8 ug/mL (0-40.0) 10/21/20 06:30 Urine Opiates Screen Negative 10/10/20 10:50 Urine Methadone Screen Negative 10/10/20 10:50 Ur Barbiturates Screen Negative 10/10/20 10:50 Ur Phencyclidine Scrn Negative 10/10/20 10:50 Ur Amphetamines Screen Negative 10/10/20 10:50 U Benzodiazepines Scrn Negative 10/10/20 10:50 Urine Cocaine Screen Negative 10/10/20 10:50 U Marijuana (THC) Screen Positive 10/10/20 10:50 Drugs of Abuse Note Disclamer 10/10/20 10:50 Plasma/Serum Alcohol < 0.01 % (0-0.07) 10/10/20 10:48 Coronavirus (PCR) Negative (Negative) 10/11/20 Unknown Blood Type AB POSITIVE 10/10/20 10:48 Antibody Screen Negative 10/10/20 10:48 Tuttle/IV: Voiding Method Incontinent Active Medications - Current Medications Current Medications: Generic Name Dose Route Start Last Admin Trade Name Freq PRN Reason Stop Dose Admin Acetaminophen 650 mg 10/10/20 21:51 10/20/20 09:11 Acetaminophen 325 Mg Tab PO 650 mg Q4H PRN Administration Pain MILD(1-3)/Fever >100.5/SALVADOR Acetaminophen 650 mg 10/11/20 11:24 10/17/20 17:16 Acetaminophen 650 Mg Rect Supp MT 650 mg Q6H PRN Administration Fever >101 Acetylcysteine 200 mg 11/04/20 16:00 11/08/20 08:16 Acetylcysteine 20% 200 Mg/1 Ml *For Inhalation Use* INHALATION 11/09/20 08:01 200 mg Q8HRT PEPITO Administration Albuterol 2.5 mg 10/11/20 13:12 11/08/20 08:16 Albuterol 2.5 Mg/3 Ml Nebu IH 2.5 mg Q6HRT PRN Administration Shortness Of Breath Amlodipine Besylate 10 mg 10/25/20 13:00 11/08/20 09:33 Amlodipine 10 Mg Tab PO 10 mg QDAY PEPITO Administration Lipase/Protease/Amylase 1 each 10/10/20 22:18 Lipase 10,500/Protease 25,000/Amylase 43,750 (Units) Dr Santana FEEDTUBE PRN PRN For Clogged Feeding Tube Clonidine HCl 0.3 mg 10/14/20 15:00 11/04/20 15:43 Clonidine Tts 0.3 Mg/24 Hr Patch TD 0.3 mg Fr PEPITO Administration Docusate Sodium 100 mg 10/16/20 22:00 11/08/20 09:33 Docusate Sodium 100 Mg/10 Ml Oral Liqd PO 100 mg BID PEPITO Administration Glycopyrrolate 1 mg 11/04/20 14:00 11/08/20 05:01 Glycopyrrolate 1 Mg Tab PO 1 mg Q8HR PEPITO Administration Heparin Sodium (Porcine) 5,000 unit 10/11/20 22:00 11/08/20 09:33 Heparin 5,000 Unit/1 Ml Vial SUB-Q 5,000 unit Q12HR PEPITO Administration Hydralazine HCl 100 mg 10/24/20 09:30 11/08/20 05:01 Hydralazine 25 Mg Tab PO 100 mg Q8HR PEPITO Administration Hydralazine HCl 10 mg 11/02/20 08:46 Hydralazine 20 Mg/1 Ml Inj IV Q6H PRN Hypertension Hydromorphone HCl 0.5 mg 11/01/20 20:55 11/08/20 09:36 Hydromorphone 1 Mg/1 Ml Inj IV 0.5 mg Q3H PRN Administration Pain , Severe (7-10) Hydrophilic Ointment 1 applic 10/10/20 10:34 Lip Therapy Vaseline TP Q2HR PRN Dry Lips Lansoprazole 30 mg 10/24/20 10:00 11/08/20 09:33 Lansoprazole 30 Mg Solutab FEEDTUBE 30 mg BID PEPITO Administration Levetiracetam 500 mg 10/31/20 10:00 11/08/20 09:33 Levetiracetam 500 Mg/5 Ml Oral Liqd PO 500 mg BID PEPITO Administration Lorazepam 1 mg 11/04/20 19:27 11/06/20 11:12 Lorazepam 2 Mg/Ml Vial IV 1 mg Q4H PRN Administration Agitation Metoclopramide HCl 10 mg 10/10/20 21:51 Metoclopramide 10 Mg/2 Ml Inj IV Q6H PRN Nausea And Vomiting Metoprolol Tartrate 100 mg 10/21/20 14:00 11/08/20 09:33 Metoprolol Tartrate 50 Mg Tab PO 100 mg TID PEPITO Administration Multi-Ingred Cream/Lotion/Oil/Oint 1 applic 10/10/20 10:34 Mineral Oil/Petrolatum, White Ophth Oint 3.5 Gm OU Q4HR PRN Dry Eye(s) Ondansetron HCl 4 mg 10/10/20 21:51 11/01/20 20:48 Ondansetron 4 Mg/2 Ml Inj IV 4 mg Q3H PRN Administration Nausea And Vomiting Polyethylene Glycol 17 gm 10/17/20 10:00 11/08/20 09:34 Polyethylene Glycol 3350 17 Gm Powder PO 17 gm QDAY PEPITO Administration Quetiapine Fumarate 100 mg 11/02/20 10:00 11/08/20 09:36 Quetiapine 100 Mg Tab PO 100 mg DAILY PEPITO Administration Quetiapine Fumarate 200 mg 11/07/20 22:00 11/07/20 22:57 Quetiapine 200 Mg Tab PO 200 mg QHS PEPITO Administration Quetiapine Fumarate 25 mg 11/07/20 14:00 11/08/20 09:33 Quetiapine 25 Mg Tab PO 25 mg DAILY PEPITO Administration Scopolamine 1 each 10/17/20 10:00 11/07/20 10:42 Scopolamine Transdermal Patch 72 Hr TD 1 each Q3D PEPITO Administration Simple Syrup 15 ml 10/10/20 22:18 Simple Syrup 15 Ml FEEDTUBE PRN PRN Hypoglycemia Simple Syrup 30 ml 10/10/20 22:18 Simple Syrup 15 Ml FEEDTUBE PRN PRN Hypoglycemia Sodium Bicarbonate 325 mg 10/10/20 22:18 Sodium Bicarbonate 325 Mg Tab FEEDTUBE PRN PRN For Clogged Feeding Tube Sodium Chloride 10 ml 10/10/20 22:00 11/07/20 22:57 Sodium Chloride 0.9% 10 Ml Flush Syringe IV 10 ml BID PEPITO Administration Sodium Chloride 10 ml 10/10/20 21:51 10/21/20 09:56 Sodium Chloride 0.9% 10 Ml Flush Syringe IV 10 ml PRN PRN Administration LINE FLUSH Nutrition/Malnutrition Assess - Dietary Evaluation Nutrition/Malnutrition Findings: Nutrition Notes Start: 10/11/20 08:38 Freq: Status: Active Protocol: Document 11/04/20 13:10 CW (Rec: 11/04/20 13:14 CW [id number]) Nutrition Notes Initial or Follow up Reassessment Current Diagnosis Acute Kidney Injury,Sepsis, Hypertension,Heart Failure, Respiratory Failure Other Pertinent Diagnosis GIB, pneu, MRSA [place], pulmonary edema Current Diet Promote at 80 ml/hr Labs/Tests BUN 26 Pertinent Medications Miralax Colace Lasix Height 6 ft Weight 135.8 kg [place] Body Weight (kg) 80.90 BMI 40.6 Weight change and time frame weight change d/t fluid overload Weight Status Morbidly Obese Subjective/Other Information F/U for TF tolerance and vent status. Pt remains on mechanical vent. TF running at goal and is being tolerated well. Percent of energy/protein needs met: 100%/74% Burn Absent Trauma Absent Difficulty In Swallowing Skin Integrity/Comment DTI to heel Current % PO Negligible Minimum of two criteria No Fluid Accumulation Mild (non-severe) #3 Nutrition Diagnosis Increased nutrient needs ( specify in comment below) Diagnosis Progress(for reassessment Continues documentation) #1 Nutrition Diagnosis Inadequate oral intake Diagnosis Progress(for reassessment Continues documentation) Is patient on ventilator? Yes Is Patient Ambulatory and/or Out of Bed No REE-([facility]-confined to bed) 2692.656 Kcal/Kg value to use for calculation 15 Approximate Energy Requirements Using 2037 kcal/Kg Calculation Used for Recommendations Kcal/kg Additional Notes protein needs: >162g (>2 kgIBW of dry weight) fluid needs: 1 ml/kcal or per MD Nutrition Intervention Change Diet Order: Continue Nutrition Support: Promote at 80 ml/hr with a free water flush of 200 ml q4hr for hypernatremia. Once hypernatremia resolved, resume flush of 50 ml q4h. Kcal 1,920 Protein (gm) 120 Fluid (mL) 1,611 Goal #1 Tolerate TF Goal #2 Meet at least 70% of protein and 100% of kcal needs via TF Anticipated Discharge Needs: TF Follow-Up By: 11/09/20 Additional Comments F/U for TF tolerance, vent status
--- NOTE | 2020-11-08 12:24 | Progress Note ---
Assessment and Plan Cardiac arrest x3 with ROSC Severe septic and cardiogenic shock Acute respiratory failure with hypoxemia and hypercarbia Acute pulmonary edema MOE (acute kidney injury) Lactic acidosis, severe metabolic acidosis Bilateral pneumonia, aspiration pneumonia Elevated troponins - continue increased seroquel doses (200mg qhs & 125 mg qam) - continue to shoot for RTC t-piece as tolerated - continue care as below otherwise; - complete mucomyst nebs X 5 days re: thick secretions - prn gentle diuresis - continue Seroquel for agitation control - daily SAT's and SBT assessment as tolerated - continue contact precautions re: MRSA - complete anti-infective's per ID rec's - follow clinically re: fevers / WBC - Monitor hemodynamics closely - wean supplemental oxygen for target O2 sat's > 92% acutely - VAP bundle addressed - continue lung protective strategies - bronchodilators with pulmonary hygiene per RT - wean per pulmonary driven protocols otherwise - Monitor urine output closely - bicarbonate infusion - avoid nephrotoxins, renally dose all medications - continue to avoid benzodiazepine's, reduce the possibility of delirium - continue Scopolamine for secretion control - continue wound care per RN/WCN - prn analgesia per CPOT score - Maintenance of sleep-wake cycle, avoid delirium - continue enteral nutritional support at goal rate as tolerated - G.I. & VTE prophylaxis - PT/OT/ROM exercises - continue mobility protocols for pressure ulcer prophylaxis - Monitor hemodynamics closely - continue other care per attending / other consultants - discharge planning ongoing concurrently .... Re-evaluate in am & prn CONDITION: CRITICAL PROGNOSIS: GUARDED CODE STATUS: FULL CODE The high probability of a clinically significant, sudden or life-threatening deterioration of the [respiratory, cardiovascular & neurologic] system(s) required my full and direct attention, intervention and personal management. The aggregate critical care time was [33] minutes without overlap. Time includes spe nt on; [x] Data Review and interpretation [x] Patient assessment and monitoring of vital signs [x] Documentation [x] Medication orders and management Subjective Date of service: 11/08/20 Principal diagnosis: Cardiac arrest; Septic Shock; Ac. hypoxemic & hypercapnic resp failure; MOE Interval history: Patient is seen today for: Cardiac arrest with ROSC; Severe septic and c ardiogenic shock; Acute respiratory failure with hypoxemia and hypercarbia; Acute pulmonary edema; MOE; Lactic acidosis; severe metabolic acidosis; Bilateral pneumonia; aspiration pneumonia; Elevated troponins Seen and examined at bedside; 24hour events reviewed; nursing and respiratory care staff consulted; no adverse overnight events reported to me; resting peacefully in bed; rested overnight on MVS; still weaning tenuously; AMS is persistent; no emesis or overt aspiration; tolerating tube feeds; still with intermittent agitation Objective Vital Signs - 12hr 11/08/20 11/08/20 11/08/20 00:30 00:50 01:00 Temperature Pulse Rate 71 66 Pulse Rate [ 72 Anterior Bilateral Throughout] Pulse Rate [ From Monitor] Respiratory 19 18 Rate Respiratory 18 Rate [Anterior Bilateral Throughout] Blood Pressure 117/53 111/51 O2 Sat by Pulse 98 97 Oximetry O2 Sat by Pulse Oximetry [ Assessment] 11/08/20 11/08/20 11/08/20 01:30 02:00 02:30 Temperature Pulse Rate 69 68 68 Pulse Rate [ Anterior Bilateral Throughout] Pulse Rate [ From Monitor] Respiratory 17 19 18 Rate Respiratory Rate [Anterior Bilateral Throughout] Blood Pressure 111/51 114/51 114/51 O2 Sat by Pulse 100 92 98 Oximetry O2 Sat by Pulse Oximetry [ Assessment] 11/08/20 11/08/20 11/08/20 03:00 03:30 03:59 Temperature 97.4 F L Pulse Rate 68 72 Pulse Rate [ Anterior Bilateral Throughout] Pulse Rate [ From Monitor] Respiratory 28 H 28 H Rate Respiratory Rate [Anterior Bilateral Throughout] Blood Pressure 130/57 130/57 O2 Sat by Pulse 92 98 Oximetry O2 Sat by Pulse Oximetry [ Assessment] 11/08/20 11/08/20 11/08/20 04:00 04:30 04:53 Temperature Pulse Rate 67 83 Pulse Rate [ Anterior Bilateral Throughout] Pulse Rate [ 69 From Monitor] Respiratory 26 H 30 H Rate Respiratory Rate [Anterior Bilateral Throughout] Blood Pressure 123/58 130/57 O2 Sat by Pulse 94 95 Oximetry O2 Sat by Pulse Oximetry [ Assessment] 11/08/20 11/08/20 11/08/20 05:00 05:01 05:23 Temperature Pulse Rate 99 H 97 H 92 H Pulse Rate [ Anterior Bilateral Throughout] Pulse Rate [ From Monitor] Respiratory Rate Respiratory Rate [Anterior Bilateral Throughout] Blood Pressure 123/58 180/84 123/58 O2 Sat by Pulse 98 98 Oximetry O2 Sat by Pulse Oximetry [ Assessment] 11/08/20 11/08/20 11/08/20 05:30 06:00 06:30 Temperature Pulse Rate 80 76 76 Pulse Rate [ Anterior Bilateral Throughout] Pulse Rate [ From Monitor] Respiratory Rate Respiratory Rate [Anterior Bilateral Throughout] Blood Pressure 180/84 121/58 121/58 O2 Sat by Pulse 94 90 95 Oximetry O2 Sat by Pulse Oximetry [ Assessment] 11/08/20 11/08/20 11/08/20 07:00 07:30 08:00 Temperature 98.4 F Pulse Rate 73 72 72 Pulse Rate [ Anterior Bilateral Throughout] Pulse Rate [ From Monitor] Respiratory 23 Rate Respiratory Rate [Anterior Bilateral Throughout] Blood Pressure 136/59 136/59 151/76 O2 Sat by Pulse 97 97 97 Oximetry O2 Sat by Pulse Oximetry [ Assessment] 11/08/20 11/08/20 11/08/20 08:25 08:30 09:00 Temperature Pulse Rate 79 78 91 H Pulse Rate [ 78 Anterior Bilateral Throughout] Pulse Rate [ From Monitor] Respiratory Rate Respiratory 17 Rate [Anterior Bilateral Throughout] Blood Pressure 151/76 151/76 151/76 O2 Sat by Pulse 100 100 98 Oximetry O2 Sat by Pulse 100 Oximetry [ Assessment] 11/08/20 11/08/20 11/08/20 09:18 09:30 10:00 Temperature Pulse Rate 91 H 81 Pulse Rate [ Anterior Bilateral Throughout] Pulse Rate [ From Monitor] Respiratory Rate Respiratory Rate [Anterior Bilateral Throughout] Blood Pressure 164/74 155/71 O2 Sat by Pulse 98 95 92 Oximetry O2 Sat by Pulse Oximetry [ Assessment] 11/08/20 11/08/20 11/08/20 10:30 11:00 11:30 Temperature Pulse Rate 75 74 72 Pulse Rate [ Anterior Bilateral Throughout] Pulse Rate [ From Monitor] Respiratory Rate Respiratory Rate [Anterior Bilateral Throughout] Blood Pressure 141/56 137/65 137/65 O2 Sat by Pulse 94 91 96 Oximetry O2 Sat by Pulse Oximetry [ Assessment] 11/08/20 12:00 Temperature Pulse Rate 76 Pulse Rate [ Anterior Bilateral Throughout] Pulse Rate [ From Monitor] Respiratory Rate Respiratory Rate [Anterior Bilateral Throughout] Blood Pressure 137/65 O2 Sat by Pulse 100 Oximetry O2 Sat by Pulse Oximetry [ Assessment] Constitutional: appears uncomfortable (mild agitation), other (middle aged obese male with mildly increased respiratory efort at rest) Eyes: non-icteric ENT: oropharynx moist, oropharyngeal exudate pre (thick), other (midline tracheostomy) Neck: supple, no lymphadenopathy, no JVD Effort: mildly labored Ascultation: Bilateral: diminished breath sounds, rhonchi (scant) Percussion: Bilateral: not dull Cardiovascular: regular rate and rhythm, other (S1,S2) Gastrointestinal: normoactive bowel sounds, soft, non-tender, non-distended (protuberant) Integumentary: normal Extremities: no cyanosis, no edema, pulses normal, no ischemia or petechiae Neurologic: pupils equal and round, unable to assess, other (encephalopathic) Psychiatric: other (unable to assess re: AMS) CBC and BMP: 11/07/20 04:50 11/07/20 04:50 ABG, PT/INR, D-dimer: ABG ABG pH 7.511 (7.320-7.450) H 11/04/20 21:18 POC ABG pCO2 49.0 mmHg (32.0-48.0) H 11/04/20 21:18 ABG pCO2 55.5 mm Hg 10/16/20 05:10 POC ABG pO2 88.5 mmHg (83-108) 11/04/20 21:18 ABG pO2 104.5 mm Hg (80.0-90.0) H 10/16/20 05:10 POC ABG HCO3 38.3 11/04/20 21:18 ABG O2 Saturation 96.9 (0-100) 11/04/20 21:18 PT/INR, D-dimer PT 13.5 Sec. (12.2-14.9) 10/28/20 07:00 INR 1.05 (0.87-1.13) 10/28/20 07:00 D-Dimer 679.5 ng/mlDDU (0-234) H 10/10/20 10:48 Abnormal lab findings: Abnormal Labs 10/10/20 10/10/20 10/10/20 10:46 10:46 10:46 WBC RBC Hgb Hct RDW Lymph % (Auto) [place] % (Auto) Eos % (Auto) Lymph # (Auto) [place] # (Auto) Eos # (Auto) Seg Neutrophils % Lymphocytes % (Manual) Monocytes % (Manual) Seg Neutrophils # Seg Neutrophils # Man Lymphocytes # (Manual) Monocytes # (Manual) D-Dimer Heparin Anti-Xa Level ABG pH POC ABG pCO2 POC ABG pO2 ABG pO2 ABG HCO3 ABG O2 Saturation ABG Base Excess ABG Hemoglobin ABG Oxyhemoglobin ABG Sodium ABG Potassium ABG Chloride ABG Glucose VBG pH Oxyhemoglobin Carboxyhemoglobin Sodium Potassium Chloride Carbon Dioxide BUN Creatinine Glucose POC Glucose Lactic Acid 13.60 H* Calcium Phosphorus Magnesium Total Bilirubin AST ALT Ammonia 214.0 H Lactate Dehydrogenase Total Creatine Kinase CK-MB (CK-2) Troponin T NT-Pro-B Natriuret Pep Total Protein Albumin Triglycerides TSH 6.260 H Arterial Blood Glucose Arterial Blood Ionized Calcium Urine pH Urine WBC (Auto) Urine Creatinine 10/10/20 10/10/20 10/10/20 10:46 10:48 10:48 WBC RBC 5.28 H Hgb 15.5 H Hct 48.8 H RDW Lymph % (Auto) [place] % (Auto) Eos % (Auto) Lymph # (Auto) [place] # (Auto) Eos # (Auto) Seg Neutrophils % Lymphocytes % (Manual) 42.0 H Monocytes % (Manual) Seg Neutrophils # Seg Neutrophils # Man Lymphocytes # (Manual) Monocytes # (Manual) D-Dimer Heparin Anti-Xa Level ABG pH POC ABG pCO2 POC ABG pO2 ABG pO2 ABG HCO3 ABG O2 Saturation ABG Base Excess ABG Hemoglobin ABG Oxyhemoglobin ABG Sodium ABG Potassium ABG Chloride ABG Glucose VBG pH Oxyhemoglobin Carboxyhemoglobin Sodium Potassium 3.3 L Chloride 91.2 L Carbon Dioxide BUN Creatinine 1.8 H Glucose 231 H POC Glucose Lactic Acid Calcium Phosphorus Magnesium Total Bilirubin AST 60 H ALT 57 H Ammonia Lactate Dehydrogenase Total Creatine Kinase CK-MB (CK-2) Troponin T NT-Pro-B Natriuret Pep 1187 H Total Protein 9.0 H Albumin Triglycerides TSH Arterial Blood Glucose Arterial Blood Ionized Calcium Urine pH Urine WBC (Auto) Urine Creatinine 10/10/20 10/10/20 10/10/20 10:48 10:48 10:48 WBC RBC Hgb Hct RDW Lymph % (Auto) [place] % (Auto) Eos % (Auto) Lymph # (Auto) [place] # (Auto) Eos # (Auto) Seg Neutrophils % Lymphocytes % (Manual) Monocytes % (Manual) Seg Neutrophils # Seg Neutrophils # Man Lymphocytes # (Manual) Monocytes # (Manual) D-Dimer 679.5 H Heparin Anti-Xa Level ABG pH POC ABG pCO2 POC ABG pO2 ABG pO2 ABG HCO3 ABG O2 Saturation ABG Base Excess ABG Hemoglobin ABG Oxyhemoglobin ABG Sodium ABG Potassium ABG Chloride ABG Glucose VBG pH 6.870 L* Oxyhemoglobin Carboxyhemoglobin Sodium Potassium Chloride Carbon Dioxide BUN Creatinine Glucose POC Glucose Lactic Acid Calcium Phosphorus Magnesium Total Bilirubin AST ALT Ammonia Lactate Dehydrogenase 386 H Total Creatine Kinase CK-MB (CK-2) Troponin T NT-Pro-B Natriuret Pep Total Protein Albumin Triglycerides TSH Arterial Blood Glucose Arterial Blood Ionized Calcium Urine pH Urine WBC (Auto) Urine Creatinine 10/10/20 10/10/20 10/10/20 14:10 14:20 15:50 WBC RBC Hgb Hct RDW Lymph % (Auto) [place] % (Auto) Eos % (Auto) Lymph # (Auto) [place] # (Auto) Eos # (Auto) Seg Neutrophils % Lymphocytes % (Manual) Monocytes % (Manual) Seg Neutrophils # Seg Neutrophils # Man Lymphocytes # (Manual) Monocytes # (Manual) D-Dimer Heparin Anti-Xa Level ABG pH 7.175 L 7.247 L POC ABG pCO2 85.0 H POC ABG pO2 43.7 L ABG pO2 60.3 L ABG HCO3 32.0 H ABG O2 Saturation 86.1 L ABG Base Excess ABG Hemoglobin ABG Oxyhemoglobin 67.7 L ABG Sodium ABG Potassium ABG Chloride ABG Glucose 247 H VBG pH Oxyhemoglobin 84.4 L Carboxyhemoglobin Sodium Potassium Chloride Carbon Dioxide BUN Creatinine Glucose POC Glucose Lactic Acid 4.00 H* Calcium Phosphorus Magnesium Total Bilirubin AST ALT Ammonia Lactate Dehydrogenase Total Creatine Kinase CK-MB (CK-2) Troponin T NT-Pro-B Natriuret Pep Total Protein Albumin Triglycerides TSH Arterial Blood Glucose 247 H Arterial Blood Ionized Calcium 4.4 L Urine pH Urine WBC (Auto) Urine Creatinine 10/10/20 10/10/20 10/10/20 15:50 16:22 18:18 WBC RBC Hgb Hct RDW Lymph % (Auto) [place] % (Auto) Eos % (Auto) Lymph # (Auto) [place] # (Auto) Eos # (Auto) Seg Neutrophils % Lymphocytes % (Manual) Monocytes % (Manual) Seg Neutrophils # Seg Neutrophils # Man Lymphocytes # (Manual) Monocytes # (Manual) D-Dimer Heparin Anti-Xa Level ABG pH 7.171 L POC ABG pCO2 96.6 H POC ABG pO2 55.3 L ABG pO2 ABG HCO3 ABG O2 Saturation ABG Base Excess ABG Hemoglobin ABG Oxyhemoglobin 81.4 L ABG Sodium ABG Potassium ABG Chloride ABG Glucose 115 H VBG pH Oxyhemoglobin Carboxyhemoglobin Sodium Potassium Chloride Carbon Dioxide BUN Creatinine Glucose POC Glucose 132 H Lactic Acid Calcium Phosphorus Magnesium Total Bilirubin AST ALT Ammonia Lactate Dehydrogenase Total Creatine Kinase 1192 H CK-MB (CK-2) 21.7 H Troponin T 0.377 H* D NT-Pro-B Natriuret Pep Total Protein Albumin Triglycerides TSH Arterial Blood Glucose 115 H Arterial Blood Ionized Calcium Urine pH Urine WBC (Auto) Urine Creatinine 10/10/20 10/10/20 10/10/20 18:18 18:18 22:49 WBC 23.0 H RBC 5.12 H Hgb Hct RDW Lymph % (Auto) [place] % (Auto) Eos % (Auto) Lymph # (Auto) [place] # (Auto) Eos # (Auto) Seg Neutrophils % Lymphocytes % (Manual) 4.0 L Monocytes % (Manual) 9.0 H Seg Neutrophils # Seg Neutrophils # Man 13.8 H Lymphocytes # (Manual) 0.9 L Monocytes # (Manual) 2.1 H D-Dimer Heparin Anti-Xa Level ABG pH POC ABG pCO2 POC ABG pO2 ABG pO2 ABG HCO3 ABG O2 Saturation ABG Base Excess ABG Hemoglobin ABG Oxyhemoglobin ABG Sodium ABG Potassium ABG Chloride ABG Glucose VBG pH Oxyhemoglobin Carboxyhemoglobin Sodium 146 H Potassium Chloride Carbon Dioxide 34 H D BUN 27 H Creatinine 2.7 H Glucose 102 H POC Glucose Lactic Acid Calcium Phosphorus Magnesium Total Bilirubin AST 90 H ALT 66 H Ammonia Lactate Dehydrogenase Total Creatine Kinase CK-MB (CK-2) Troponin T 0.273 H* D NT-Pro-B Natriuret Pep Total Protein Albumin Triglycerides TSH Arterial Blood Glucose Arterial Blood Ionized Calcium Urine pH Urine WBC (Auto) Urine Creatinine 10/11/20 10/11/20 10/11/20 02:00 02:00 02:00 WBC 17.3 H RBC Hgb Hct RDW Lymph % (Auto) 3.9 L [place] % (Auto) Eos % (Auto) Lymph # (Auto) 0.7 L [place] # (Auto) Eos # (Auto) Seg Neutrophils % 93.0 H Lymphocytes % (Manual) Monocytes % (Manual) Seg Neutrophils # 16.1 H Seg Neutrophils # Man Lymphocytes # (Manual) Monocytes # (Manual) D-Dimer Heparin Anti-Xa Level ABG pH POC ABG pCO2 POC ABG pO2 ABG pO2 ABG HCO3 ABG O2 Saturation ABG Base Excess ABG Hemoglobin ABG Oxyhemoglobin ABG Sodium ABG Potassium ABG Chloride ABG Glucose VBG pH Oxyhemoglobin Carboxyhemoglobin Sodium 149 H Potassium 3.3 L Chloride 95.3 L Carbon Dioxide 37 H BUN 29 H Creatinine 2.6 H Glucose POC Glucose Lactic Acid Calcium Phosphorus Magnesium Total Bilirubin AST 80 H ALT 59 H Ammonia Lactate Dehydrogenase Total Creatine Kinase CK-MB (CK-2) Troponin T 0.201 H* D NT-Pro-B Natriuret Pep Total Protein Albumin 3.6 L Triglycerides TSH Arterial Blood Glucose Arterial Blood Ionized Calcium Urine pH Urine WBC (Auto) Urine Creatinine 10/11/20 10/11/20 10/11/20 03:51 08:35 11:15 WBC RBC Hgb Hct RDW Lymph % (Auto) [place] % (Auto) Eos % (Auto) Lymph # (Auto) [place] # (Auto) Eos # (Auto) Seg Neutrophils % Lymphocytes % (Manual) Monocytes % (Manual) Seg Neutrophils # Seg Neutrophils # Man Lymphocytes # (Manual) Monocytes # (Manual) D-Dimer Heparin Anti-Xa Level 0.22 L ABG pH 7.491 H POC ABG pCO2 57.6 H POC ABG pO2 ABG pO2 ABG HCO3 ABG O2 Saturation ABG Base Excess ABG Hemoglobin ABG Oxyhemoglobin ABG Sodium 150.0 H ABG Potassium 3.1 L ABG Chloride 96.0 L ABG Glucose 122 H VBG pH Oxyhemoglobin Carboxyhemoglobin Sodium Potassium Chloride Carbon Dioxide BUN Creatinine Glucose POC Glucose 151 H Lactic Acid Calcium Phosphorus Magnesium Total Bilirubin AST ALT Ammonia Lactate Dehydrogenase Total Creatine Kinase CK-MB (CK-2) Troponin T NT-Pro-B Natriuret Pep Total Protein Albumin Triglycerides TSH Arterial Blood Glucose 122 H Arterial Blood Ionized Calcium 3.9 L Urine pH Urine WBC (Auto) Urine Creatinine 10/11/20 10/11/20 10/11/20 13:30 13:30 13:30 WBC 15.0 H RBC Hgb Hct RDW Lymph % (Auto) [place] % (Auto) Eos % (Auto) Lymph # (Auto) [place] # (Auto) Eos # (Auto) Seg Neutrophils % Lymphocytes % (Manual) Monocytes % (Manual) Seg Neutrophils # Seg Neutrophils # Man Lymphocytes # (Manual) Monocytes # (Manual) D-Dimer Heparin Anti-Xa Level ABG pH POC ABG pCO2 POC ABG pO2 ABG pO2 ABG HCO3 ABG O2 Saturation ABG Base Excess ABG Hemoglobin ABG Oxyhemoglobin ABG Sodium ABG Potassium ABG Chloride ABG Glucose VBG pH Oxyhemoglobin Carboxyhemoglobin Sodium Potassium Chloride Carbon Dioxide BUN Creatinine Glucose POC Glucose Lactic Acid Calcium Phosphorus Magnesium Total Bilirubin AST ALT Ammonia Lactate Dehydrogenase Total Creatine Kinase CK-MB (CK-2) Troponin T NT-Pro-B Natriuret Pep Total Protein Albumin Triglycerides TSH Arterial Blood Glucose Arterial Blood Ionized Calcium Urine pH 9.0 H Urine WBC (Auto) 18.0 H Urine Creatinine 80.5 H 10/11/20 10/11/20 10/12/20 17:17 23:14 03:53 WBC RBC Hgb Hct RDW Lymph % (Auto) [place] % (Auto) Eos % (Auto) Lymph # (Auto) [place] # (Auto) Eos # (Auto) Seg Neutrophils % Lymphocytes % (Manual) Monocytes % (Manual) Seg Neutrophils # Seg Neutrophils # Man Lymphocytes # (Manual) Monocytes # (Manual) D-Dimer Heparin Anti-Xa Level ABG pH 7.545 H POC ABG pCO2 54.6 H POC ABG pO2 231.9 H ABG pO2 ABG HCO3 ABG O2 Saturation ABG Base Excess ABG Hemoglobin ABG Oxyhemoglobin 98.5 H ABG Sodium 150.5 H ABG Potassium 3.2 L ABG Chloride 96.0 L ABG Glucose 148 H VBG pH Oxyhemoglobin Carboxyhemoglobin Sodium Potassium Chloride Carbon Dioxide BUN Creatinine Glucose POC Glucose 121 H 135 H Lactic Acid Calcium Phosphorus Magnesium Total Bilirubin AST ALT Ammonia Lactate Dehydrogenase Total Creatine Kinase CK-MB (CK-2) Troponin T NT-Pro-B Natriuret Pep Total Protein Albumin Triglycerides TSH Arterial Blood Glucose 148 H Arterial Blood Ionized Calcium 3.8 L Urine pH Urine WBC (Auto) Urine Creatinine 10/12/20 10/12/20 10/12/20 04:00 05:10 05:12 WBC 14.3 H RBC Hgb 11.6 L Hct 35.2 L RDW Lymph % (Auto) [place] % (Auto) Eos % (Auto) Lymph # (Auto) [place] # (Auto) Eos # (Auto) Seg Neutrophils % Lymphocytes % (Manual) Monocytes % (Manual) Seg Neutrophils # Seg Neutrophils # Man Lymphocytes # (Manual) Monocytes # (Manual) D-Dimer Heparin Anti-Xa Level ABG pH POC ABG pCO2 POC ABG pO2 ABG pO2 ABG HCO3 ABG O2 Saturation ABG Base Excess ABG Hemoglobin ABG Oxyhemoglobin ABG Sodium ABG Potassium ABG Chloride ABG Glucose VBG pH Oxyhemoglobin Carboxyhemoglobin Sodium 155 H Potassium 3.3 L Chloride 97.9 L Carbon Dioxide 47 H* D BUN 50 H Creatinine 3.4 H Glucose 146 H POC Glucose 137 H Lactic Acid Calcium 8.0 L Phosphorus Magnesium Total Bilirubin AST ALT Ammonia Lactate Dehydrogenase Total Creatine Kinase CK-MB (CK-2) Troponin T 0.125 H* D NT-Pro-B Natriuret Pep Total Protein Albumin Triglycerides TSH Arterial Blood Glucose Arterial Blood Ionized Calcium Urine pH Urine WBC (Auto) Urine Creatinine 10/12/20 10/12/20 10/12/20 11:39 16:01 19:49 WBC RBC Hgb Hct RDW Lymph % (Auto) [place] % (Auto) Eos % (Auto) Lymph # (Auto) [place] # (Auto) Eos # (Auto) Seg Neutrophils % Lymphocytes % (Manual) Monocytes % (Manual) Seg Neutrophils # Seg Neutrophils # Man Lymphocytes # (Manual) Monocytes # (Manual) D-Dimer Heparin Anti-Xa Level ABG pH POC ABG pCO2 POC ABG pO2 ABG pO2 ABG HCO3 ABG O2 Saturation ABG Base Excess ABG Hemoglobin ABG Oxyhemoglobin ABG Sodium ABG Potassium ABG Chloride ABG Glucose VBG pH Oxyhemoglobin Carboxyhemoglobin Sodium 157 H Potassium 3.3 L Chloride Carbon Dioxide 47 H* BUN 52 H Creatinine 3.0 H Glucose 137 H POC Glucose 138 H 119 H Lactic Acid Calcium 8.0 L Phosphorus Magnesium Total Bilirubin AST ALT Ammonia Lactate Dehydrogenase Total Creatine Kinase CK-MB (CK-2) Troponin T NT-Pro-B Natriuret Pep Total Protein Albumin Triglycerides TSH Arterial Blood Glucose Arterial Blood Ionized Calcium Urine pH Urine WBC (Auto) Urine Creatinine 10/12/20 10/13/20 10/13/20 23:37 02:28 04:52 WBC RBC Hgb Hct RDW Lymph % (Auto) [place] % (Auto) Eos % (Auto) Lymph # (Auto) [place] # (Auto) Eos # (Auto) Seg Neutrophils % Lymphocytes % (Manual) Monocytes % (Manual) Seg Neutrophils # Seg Neutrophils # Man Lymphocytes # (Manual) Monocytes # (Manual) D-Dimer Heparin Anti-Xa Level ABG pH 7.485 H POC ABG pCO2 57.1 H POC ABG pO2 ABG pO2 ABG HCO3 ABG O2 Saturation ABG Base Excess ABG Hemoglobin ABG Oxyhemoglobin ABG Sodium 152.4 H ABG Potassium ABG Chloride ABG Glucose 129 H VBG pH Oxyhemoglobin Carboxyhemoglobin Sodium 155 H Potassium Chloride Carbon Dioxide 45 H* BUN 52 H Creatinine 2.7 H Glucose 121 H POC Glucose 131 H Lactic Acid Calcium Phosphorus Magnesium 2.40 H Total Bilirubin AST ALT Ammonia Lactate Dehydrogenase Total Creatine Kinase CK-MB (CK-2) Troponin T NT-Pro-B Natriuret Pep Total Protein Albumin Triglycerides 278 H TSH Arterial Blood Glucose 129 H Arterial Blood Ionized Calcium 4.1 L Urine pH Urine WBC (Auto) Urine Creatinine 10/13/20 10/13/20 10/13/20 04:52 05:13 11:37 WBC 14.7 H RBC Hgb 11.7 L Hct RDW 15.8 H Lymph % (Auto) [place] % (Auto) Eos % (Auto) Lymph # (Auto) [place] # (Auto) Eos # (Auto) Seg Neutrophils % Lymphocytes % (Manual) Monocytes % (Manual) Seg Neutrophils # Seg Neutrophils # Man Lymphocytes # (Manual) Monocytes # (Manual) D-Dimer Heparin Anti-Xa Level ABG pH POC ABG pCO2 POC ABG pO2 ABG pO2 ABG HCO3 ABG O2 Saturation ABG Base Excess ABG Hemoglobin ABG Oxyhemoglobin ABG Sodium ABG Potassium ABG Chloride ABG Glucose VBG pH Oxyhemoglobin Carboxyhemoglobin Sodium Potassium Chloride Carbon Dioxide BUN Creatinine Glucose POC Glucose 116 H 116 H Lactic Acid Calcium Phosphorus Magnesium Total Bilirubin AST ALT Ammonia Lactate Dehydrogenase Total Creatine Kinase CK-MB (CK-2) Troponin T NT-Pro-B Natriuret Pep Total Protein Albumin Triglycerides TSH Arterial Blood Glucose Arterial Blood Ionized Calcium Urine pH Urine WBC (Auto) Urine Creatinine 10/13/20 10/14/20 10/14/20 17:50 03:45 04:46 WBC 11.1 H RBC Hgb Hct RDW 15.3 H Lymph % (Auto) [place] % (Auto) Eos % (Auto) Lymph # (Auto) [place] # (Auto) Eos # (Auto) Seg Neutrophils % Lymphocytes % (Manual) Monocytes % (Manual) Seg Neutrophils # Seg Neutrophils # Man Lymphocytes # (Manual) Monocytes # (Manual) D-Dimer Heparin Anti-Xa Level ABG pH POC ABG pCO2 59.6 H POC ABG pO2 ABG pO2 ABG HCO3 ABG O2 Saturation ABG Base Excess ABG Hemoglobin ABG Oxyhemoglobin ABG Sodium 151.4 H ABG Potassium 3.3 L ABG Chloride ABG Glucose 138 H VBG pH Oxyhemoglobin Carboxyhemoglobin 1.6 H Sodium Potassium Chloride Carbon Dioxide BUN Creatinine Glucose POC Glucose 140 H Lactic Acid Calcium Phosphorus Magnesium Total Bilirubin AST ALT Ammonia Lactate Dehydrogenase Total Creatine Kinase CK-MB (CK-2) Troponin T NT-Pro-B Natriuret Pep Total Protein Albumin Triglycerides TSH Arterial Blood Glucose 138 H Arterial Blood Ionized Calcium 4.5 L Urine pH Urine WBC (Auto) Urine Creatinine 10/14/20 10/14/20 10/14/20 04:46 05:10 11:11 WBC RBC Hgb Hct RDW Lymph % (Auto) [place] % (Auto) Eos % (Auto) Lymph # (Auto) [place] # (Auto) Eos # (Auto) Seg Neutrophils % Lymphocytes % (Manual) Monocytes % (Manual) Seg Neutrophils # Seg Neutrophils # Man Lymphocytes # (Manual) Monocytes # (Manual) D-Dimer Heparin Anti-Xa Level ABG pH POC ABG pCO2 POC ABG pO2 ABG pO2 ABG HCO3 ABG O2 Saturation ABG Base Excess ABG Hemoglobin ABG Oxyhemoglobin ABG Sodium ABG Potassium ABG Chloride ABG Glucose VBG pH Oxyhemoglobin Carboxyhemoglobin Sodium 152 H Potassium 3.5 L Chloride Carbon Dioxide 38 H D BUN 46 H Creatinine 2.3 H Glucose 127 H POC Glucose 116 H 114 H Lactic Acid Calcium Phosphorus Magnesium Total Bilirubin AST ALT Ammonia Lactate Dehydrogenase Total Creatine Kinase CK-MB (CK-2) Troponin T NT-Pro-B Natriuret Pep Total Protein Albumin Triglycerides TSH Arterial Blood Glucose Arterial Blood Ionized Calcium Urine pH Urine WBC (Auto) Urine Creatinine 10/14/20 10/14/20 10/15/20 18:53 23:23 04:12 WBC RBC Hgb Hct RDW Lymph % (Auto) [place] % (Auto) Eos % (Auto) Lymph # (Auto) [place] # (Auto) Eos # (Auto) Seg Neutrophils % Lymphocytes % (Manual) Monocytes % (Manual) Seg Neutrophils # Seg Neutrophils # Man Lymphocytes # (Manual) Monocytes # (Manual) D-Dimer Heparin Anti-Xa Level ABG pH POC ABG pCO2 POC ABG pO2 ABG pO2 ABG HCO3 ABG O2 Saturation ABG Base Excess ABG Hemoglobin ABG Oxyhemoglobin ABG Sodium ABG Potassium ABG Chloride ABG Glucose VBG pH Oxyhemoglobin Carboxyhemoglobin Sodium 149 H Potassium 3.2 L Chloride Carbon Dioxide 37 H BUN 40 H Creatinine 2.0 H Glucose 124 H POC Glucose 128 H 113 H Lactic Acid Calcium Phosphorus Magnesium Total Bilirubin AST ALT Ammonia Lactate Dehydrogenase Total Creatine Kinase CK-MB (CK-2) Troponin T NT-Pro-B Natriuret Pep Total Protein Albumin Triglycerides TSH Arterial Blood Glucose Arterial Blood Ionized Calcium Urine pH Urine WBC (Auto) Urine Creatinine 10/15/20 10/15/20 10/15/20 04:22 11:39 17:36 WBC RBC Hgb Hct RDW Lymph % (Auto) [place] % (Auto) Eos % (Auto) Lymph # (Auto) [place] # (Auto) Eos # (Auto) Seg Neutrophils % Lymphocytes % (Manual) Monocytes % (Manual) Seg Neutrophils # Seg Neutrophils # Man Lymphocytes # (Manual) Monocytes # (Manual) D-Dimer Heparin Anti-Xa Level ABG pH POC ABG pCO2 POC ABG pO2 ABG pO2 115.0 H ABG HCO3 38.1 H ABG O2 Saturation ABG Base Excess 11.3 H ABG Hemoglobin 11.0 L ABG Oxyhemoglobin ABG Sodium ABG Potassium ABG Chloride ABG Glucose VBG pH Oxyhemoglobin Carboxyhemoglobin Sodium Potassium Chloride Carbon Dioxide BUN Creatinine Glucose POC Glucose 123 H 118 H Lactic Acid Calcium Phosphorus Magnesium Total Bilirubin AST ALT Ammonia Lactate Dehydrogenase Total Creatine Kinase CK-MB (CK-2) Troponin T NT-Pro-B Natriuret Pep Total Protein Albumin Triglycerides TSH Arterial Blood Glucose Arterial Blood Ionized Calcium Urine pH Urine WBC (Auto) Urine Creatinine 10/15/20 10/16/20 10/16/20 23:18 03:13 05:10 WBC RBC Hgb Hct RDW Lymph % (Auto) [place] % (Auto) Eos % (Auto) Lymph # (Auto) [place] # (Auto) Eos # (Auto) Seg Neutrophils % Lymphocytes % (Manual) Monocytes % (Manual) Seg Neutrophils # Seg Neutrophils # Man Lymphocytes # (Manual) Monocytes # (Manual) D-Dimer Heparin Anti-Xa Level ABG pH POC ABG pCO2 POC ABG pO2 ABG pO2 104.5 H ABG HCO3 35.1 H ABG O2 Saturation ABG Base Excess 9.5 H ABG Hemoglobin 7.9 L ABG Oxyhemoglobin ABG Sodium ABG Potassium ABG Chloride ABG Glucose VBG pH Oxyhemoglobin Carboxyhemoglobin Sodium Potassium 3.3 L Chloride Carbon Dioxide 33 H BUN 37 H Creatinine 1.4 H Glucose 148 H POC Glucose 135 H Lactic Acid Calcium Phosphorus Magnesium 2.40 H Total Bilirubin AST ALT Ammonia Lactate Dehydrogenase Total Creatine Kinase CK-MB (CK-2) Troponin T NT-Pro-B Natriuret Pep Total Protein Albumin Triglycerides TSH Arterial Blood Glucose Arterial Blood Ionized Calcium Urine pH Urine WBC (Auto) Urine Creatinine 10/16/20 10/16/20 10/16/20 06:36 11:08 17:07 WBC RBC Hgb Hct RDW Lymph % (Auto) [place] % (Auto) Eos % (Auto) Lymph # (Auto) [place] # (Auto) Eos # (Auto) Seg Neutrophils % Lymphocytes % (Manual) Monocytes % (Manual) Seg Neutrophils # Seg Neutrophils # Man Lymphocytes # (Manual) Monocytes # (Manual) D-Dimer Heparin Anti-Xa Level ABG pH POC ABG pCO2 POC ABG pO2 ABG pO2 ABG HCO3 ABG O2 Saturation ABG Base Excess ABG Hemoglobin ABG Oxyhemoglobin ABG Sodium ABG Potassium ABG Chloride ABG Glucose VBG pH Oxyhemoglobin Carboxyhemoglobin Sodium Potassium Chloride Carbon Dioxide BUN Creatinine Glucose POC Glucose 150 H 111 H 132 H Lactic Acid Calcium Phosphorus Magnesium Total Bilirubin AST ALT Ammonia Lactate Dehydrogenase Total Creatine Kinase CK-MB (CK-2) Troponin T NT-Pro-B Natriuret Pep Total Protein Albumin Triglycerides TSH Arterial Blood Glucose Arterial Blood Ionized Calcium Urine pH Urine WBC (Auto) Urine Creatinine 10/16/20 10/17/20 10/17/20 23:38 03:32 03:32 WBC RBC Hgb Hct RDW Lymph % (Auto) [place] % (Auto) Eos % (Auto) Lymph # (Auto) [place] # (Auto) Eos # (Auto) Seg Neutrophils % Lymphocytes % (Manual) Monocytes % (Manual) Seg Neutrophils # Seg Neutrophils # Man Lymphocytes # (Manual) Monocytes # (Manual) D-Dimer Heparin Anti-Xa Level ABG pH POC ABG pCO2 POC ABG pO2 ABG pO2 ABG HCO3 ABG O2 Saturation ABG Base Excess ABG Hemoglobin ABG Oxyhemoglobin ABG Sodium ABG Potassium ABG Chloride ABG Glucose VBG pH Oxyhemoglobin Carboxyhemoglobin Sodium 146 H Potassium Chloride Carbon Dioxide 32 H BUN 57 H Creatinine 2.4 H D Glucose 124 H POC Glucose 117 H Lactic Acid Calcium Phosphorus 5.20 H D Magnesium Total Bilirubin AST ALT Ammonia Lactate Dehydrogenase Total Creatine Kinase CK-MB (CK-2) Troponin T NT-Pro-B Natriuret Pep Total Protein Albumin Triglycerides TSH Arterial Blood Glucose Arterial Blood Ionized Calcium Urine pH Urine WBC (Auto) Urine Creatinine 10/17/20 10/17/20 10/18/20 05:10 17:33 00:13 WBC RBC Hgb Hct RDW Lymph % (Auto) [place] % (Auto) Eos % (Auto) Lymph # (Auto) [place] # (Auto) Eos # (Auto) Seg Neutrophils % Lymphocytes % (Manual) Monocytes % (Manual) Seg Neutrophils # Seg Neutrophils # Man Lymphocytes # (Manual) Monocytes # (Manual) D-Dimer Heparin Anti-Xa Level ABG pH POC ABG pCO2 POC ABG pO2 ABG pO2 ABG HCO3 ABG O2 Saturation ABG Base Excess ABG Hemoglobin ABG Oxyhemoglobin ABG Sodium ABG Potassium ABG Chloride ABG Glucose VBG pH Oxyhemoglobin Carboxyhemoglobin Sodium Potassium Chloride Carbon Dioxide BUN Creatinine Glucose POC Glucose 122 H 121 H 23 L Lactic Acid Calcium Phosphorus Magnesium Total Bilirubin AST ALT Ammonia Lactate Dehydrogenase Total Creatine Kinase CK-MB (CK-2) Troponin T NT-Pro-B Natriuret Pep Total Protein Albumin Triglycerides TSH Arterial Blood Glucose Arterial Blood Ionized Calcium Urine pH Urine WBC (Auto) Urine Creatinine 10/18/20 10/18/20 10/18/20 00:16 03:27 03:27 WBC RBC Hgb 11.7 L Hct RDW Lymph % (Auto) [place] % (Auto) Eos % (Auto) Lymph # (Auto) [place] # (Auto) Eos # (Auto) Seg Neutrophils % Lymphocytes % (Manual) Monocytes % (Manual) Seg Neutrophils # Seg Neutrophils # Man Lymphocytes # (Manual) Monocytes # (Manual) D-Dimer Heparin Anti-Xa Level ABG pH POC ABG pCO2 POC ABG pO2 ABG pO2 ABG HCO3 ABG O2 Saturation ABG Base Excess ABG Hemoglobin ABG Oxyhemoglobin ABG Sodium ABG Potassium ABG Chloride ABG Glucose VBG pH Oxyhemoglobin Carboxyhemoglobin Sodium Potassium Chloride 97.6 L Carbon Dioxide BUN 90 H Creatinine 3.3 H Glucose 146 H POC Glucose 134 H Lactic Acid Calcium Phosphorus Magnesium Total Bilirubin 1.70 H AST ALT Ammonia Lactate Dehydrogenase Total Creatine Kinase CK-MB (CK-2) Troponin T NT-Pro-B Natriuret Pep Total Protein Albumin 3.1 L Triglycerides TSH Arterial Blood Glucose Arterial Blood Ionized Calcium Urine pH Urine WBC (Auto) Urine Creatinine 10/18/20 10/18/20 10/18/20 05:09 11:19 17:15 WBC RBC Hgb Hct RDW Lymph % (Auto) [place] % (Auto) Eos % (Auto) Lymph # (Auto) [place] # (Auto) Eos # (Auto) Seg Neutrophils % Lymphocytes % (Manual) Monocytes % (Manual) Seg Neutrophils # Seg Neutrophils # Man Lymphocytes # (Manual) Monocytes # (Manual) D-Dimer Heparin Anti-Xa Level ABG pH POC ABG pCO2 POC ABG pO2 ABG pO2 ABG HCO3 ABG O2 Saturation ABG Base Excess ABG Hemoglobin ABG Oxyhemoglobin ABG Sodium ABG Potassium ABG Chloride ABG Glucose VBG pH Oxyhemoglobin Carboxyhemoglobin Sodium Potassium Chloride Carbon Dioxide BUN Creatinine Glucose POC Glucose 144 H 145 H 151 H Lactic Acid Calcium Phosphorus Magnesium Total Bilirubin AST ALT Ammonia Lactate Dehydrogenase Total Creatine Kinase CK-MB (CK-2) Troponin T NT-Pro-B Natriuret Pep Total Protein Albumin Triglycerides TSH Arterial Blood Glucose Arterial Blood Ionized Calcium Urine pH Urine WBC (Auto) Urine Creatinine 10/18/20 10/18/20 10/19/20 23:16 Unknown 04:55 WBC RBC Hgb Hct RDW Lymph % (Auto) [place] % (Auto) Eos % (Auto) Lymph # (Auto) [place] # (Auto) Eos # (Auto) Seg Neutrophils % Lymphocytes % (Manual) Monocytes % (Manual) Seg Neutrophils # Seg Neutrophils # Man Lymphocytes # (Manual) Monocytes # (Manual) D-Dimer Heparin Anti-Xa Level ABG pH POC ABG pCO2 POC ABG pO2 ABG pO2 ABG HCO3 ABG O2 Saturation ABG Base Excess ABG Hemoglobin ABG Oxyhemoglobin ABG Sodium ABG Potassium ABG Chloride ABG Glucose VBG pH Oxyhemoglobin Carboxyhemoglobin Sodium Potassium Chloride Carbon Dioxide BUN 104 H Creatinine 3.1 H Glucose 139 H POC Glucose 123 H Lactic Acid Calcium Phosphorus Magnesium Total Bilirubin AST ALT Ammonia Lactate Dehydrogenase Total Creatine Kinase CK-MB (CK-2) Troponin T NT-Pro-B Natriuret Pep Total Protein Albumin Triglycerides TSH Arterial Blood Glucose Arterial Blood Ionized Calcium Urine pH Urine WBC (Auto) 115.0 H Urine Creatinine 10/19/20 10/19/20 10/19/20 04:55 11:35 13:14 WBC 15.1 H RBC Hgb 11.1 L Hct 34.4 L RDW Lymph % (Auto) 4.2 L [place] % (Auto) 11.9 H Eos % (Auto) Lymph # (Auto) 0.6 L [place] # (Auto) 1.8 H Eos # (Auto) Seg Neutrophils % 82.0 H Lymphocytes % (Manual) Monocytes % (Manual) Seg Neutrophils # 12.4 H Seg Neutrophils # Man Lymphocytes # (Manual) Monocytes # (Manual) D-Dimer Heparin Anti-Xa Level ABG pH POC ABG pCO2 POC ABG pO2 ABG pO2 ABG HCO3 ABG O2 Saturation ABG Base Excess ABG Hemoglobin ABG Oxyhemoglobin ABG Sodium ABG Potassium ABG Chloride ABG Glucose VBG pH Oxyhemoglobin Carboxyhemoglobin Sodium Potassium Chloride Carbon Dioxide BUN Creatinine Glucose POC Glucose 136 H Lactic Acid Calcium Phosphorus Magnesium Total Bilirubin AST ALT Ammonia Lactate Dehydrogenase Total Creatine Kinase CK-MB (CK-2) Troponin T NT-Pro-B Natriuret Pep Total Protein Albumin Triglycerides TSH Arterial Blood Glucose Arterial Blood Ionized Calcium Urine pH Urine WBC (Auto) Urine Creatinine 93.7 H 10/19/20 10/19/20 10/20/20 17:53 23:39 04:30 WBC RBC Hgb Hct RDW Lymph % (Auto) [place] % (Auto) Eos % (Auto) Lymph # (Auto) [place] # (Auto) Eos # (Auto) Seg Neutrophils % Lymphocytes % (Manual) Monocytes % (Manual) Seg Neutrophils # Seg Neutrophils # Man Lymphocytes # (Manual) Monocytes # (Manual) D-Dimer Heparin Anti-Xa Level ABG pH POC ABG pCO2 POC ABG pO2 ABG pO2 ABG HCO3 ABG O2 Saturation ABG Base Excess ABG Hemoglobin ABG Oxyhemoglobin ABG Sodium ABG Potassium ABG Chloride ABG Glucose VBG pH Oxyhemoglobin Carboxyhemoglobin Sodium Potassium Chloride Carbon Dioxide BUN 104 H Creatinine 2.8 H Glucose 151 H POC Glucose 137 H 133 H Lactic Acid Calcium Phosphorus Magnesium Total Bilirubin AST ALT Ammonia Lactate Dehydrogenase Total Creatine Kinase CK-MB (CK-2) Troponin T NT-Pro-B Natriuret Pep Total Protein Albumin Triglycerides TSH Arterial Blood Glucose Arterial Blood Ionized Calcium Urine pH Urine WBC (Auto) Urine Creatinine 10/20/20 10/20/20 10/20/20 04:30 05:38 11:34 WBC 17.9 H RBC Hgb 11.7 L Hct RDW Lymph % (Auto) [place] % (Auto) Eos % (Auto) Lymph # (Auto) [place] # (Auto) Eos # (Auto) Seg Neutrophils % Lymphocytes % (Manual) Monocytes % (Manual) Seg Neutrophils # Seg Neutrophils # Man Lymphocytes # (Manual) Monocytes # (Manual) D-Dimer Heparin Anti-Xa Level ABG pH POC ABG pCO2 POC ABG pO2 ABG pO2 ABG HCO3 ABG O2 Saturation ABG Base Excess ABG Hemoglobin ABG Oxyhemoglobin ABG Sodium ABG Potassium ABG Chloride ABG Glucose VBG pH Oxyhemoglobin Carboxyhemoglobin Sodium Potassium Chloride Carbon Dioxide BUN Creatinine Glucose POC Glucose 164 H 148 H Lactic Acid Calcium Phosphorus Magnesium Total Bilirubin AST ALT Ammonia Lactate Dehydrogenase Total Creatine Kinase CK-MB (CK-2) Troponin T NT-Pro-B Natriuret Pep Total Protein Albumin Triglycerides TSH Arterial Blood Glucose Arterial Blood Ionized Calcium Urine pH Urine WBC (Auto) Urine Creatinine 10/20/20 10/20/20 10/20/20 17:40 20:20 23:29 WBC RBC Hgb Hct RDW Lymph % (Auto) [place] % (Auto) Eos % (Auto) Lymph # (Auto) [place] # (Auto) Eos # (Auto) Seg Neutrophils % Lymphocytes % (Manual) Monocytes % (Manual) Seg Neutrophils # Seg Neutrophils # Man Lymphocytes # (Manual) Monocytes # (Manual) D-Dimer Heparin Anti-Xa Level ABG pH 7.292 L POC ABG pCO2 68.5 H POC ABG pO2 ABG pO2 ABG HCO3 ABG O2 Saturation ABG Base Excess ABG Hemoglobin 11.6 L ABG Oxyhemoglobin ABG Sodium ABG Potassium ABG Chloride ABG Glucose 145 H VBG pH Oxyhemoglobin Carboxyhemoglobin Sodium Potassium Chloride Carbon Dioxide BUN Creatinine Glucose POC Glucose 130 H 136 H Lactic Acid Calcium Phosphorus Magnesium Total Bilirubin AST ALT Ammonia Lactate Dehydrogenase Total Creatine Kinase CK-MB (CK-2) Troponin T NT-Pro-B Natriuret Pep Total Protein Albumin Triglycerides TSH Arterial Blood Glucose 145 H Arterial Blood Ionized Calcium Urine pH Urine WBC (Auto) Urine Creatinine 10/21/20 10/21/20 10/21/20 04:20 06:26 06:30 WBC RBC Hgb Hct RDW Lymph % (Auto) [place] % (Auto) Eos % (Auto) Lymph # (Auto) [place] # (Auto) Eos # (Auto) Seg Neutrophils % Lymphocytes % (Manual) Monocytes % (Manual) Seg Neutrophils # Seg Neutrophils # Man Lymphocytes # (Manual) Monocytes # (Manual) D-Dimer Heparin Anti-Xa Level ABG pH 7.262 L POC ABG pCO2 72.4 H POC ABG pO2 81.6 L ABG pO2 ABG HCO3 ABG O2 Saturation ABG Base Excess ABG Hemoglobin 11.6 L ABG Oxyhemoglobin ABG Sodium ABG Potassium ABG Chloride ABG Glucose 140 H VBG pH Oxyhemoglobin Carboxyhemoglobin Sodium Potassium Chloride Carbon Dioxide 33 H BUN 104 H Creatinine 2.9 H Glucose 153 H POC Glucose 128 H Lactic Acid Calcium Phosphorus Magnesium Total Bilirubin AST ALT Ammonia Lactate Dehydrogenase Total Creatine Kinase CK-MB (CK-2) Troponin T NT-Pro-B Natriuret Pep Total Protein Albumin Triglycerides TSH Arterial Blood Glucose 140 H Arterial Blood Ionized Calcium Urine pH Urine WBC (Auto) Urine Creatinine 10/21/20 10/21/20 10/21/20 06:30 11:24 17:21 WBC 13.3 H RBC Hgb 10.7 L Hct 32.7 L RDW Lymph % (Auto) [place] % (Auto) Eos % (Auto) Lymph # (Auto) [place] # (Auto) Eos # (Auto) Seg Neutrophils % Lymphocytes % (Manual) Monocytes % (Manual) Seg Neutrophils # Seg Neutrophils # Man Lymphocytes # (Manual) Monocytes # (Manual) D-Dimer Heparin Anti-Xa Level ABG pH POC ABG pCO2 POC ABG pO2 ABG pO2 ABG HCO3 ABG O2 Saturation ABG Base Excess ABG Hemoglobin ABG Oxyhemoglobin ABG Sodium ABG Potassium ABG Chloride ABG Glucose VBG pH Oxyhemoglobin Carboxyhemoglobin Sodium Potassium Chloride Carbon Dioxide BUN Creatinine Glucose POC Glucose 178 H 138 H Lactic Acid Calcium Phosphorus Magnesium Total Bilirubin AST ALT Ammonia Lactate Dehydrogenase Total Creatine Kinase CK-MB (CK-2) Troponin T NT-Pro-B Natriuret Pep Total Protein Albumin Triglycerides TSH Arterial Blood Glucose Arterial Blood Ionized Calcium Urine pH Urine WBC (Auto) Urine Creatinine 10/22/20 10/22/20 10/22/20 00:05 04:30 06:15 WBC RBC Hgb Hct RDW Lymph % (Auto) [place] % (Auto) Eos % (Auto) Lymph # (Auto) [place] # (Auto) Eos # (Auto) Seg Neutrophils % Lymphocytes % (Manual) Monocytes % (Manual) Seg Neutrophils # Seg Neutrophils # Man Lymphocytes # (Manual) Monocytes # (Manual) D-Dimer Heparin Anti-Xa Level ABG pH 7.225 L POC ABG pCO2 76.6 H POC ABG pO2 ABG pO2 ABG HCO3 ABG O2 Saturation ABG Base Excess ABG Hemoglobin 11.1 L ABG Oxyhemoglobin ABG Sodium ABG Potassium ABG Chloride ABG Glucose 151 H VBG pH Oxyhemoglobin Carboxyhemoglobin Sodium Potassium Chloride Carbon Dioxide 32 H BUN 103 H Creatinine 2.7 H Glucose 151 H POC Glucose 135 H Lactic Acid Calcium Phosphorus Magnesium Total Bilirubin AST ALT Ammonia Lactate Dehydrogenase Total Creatine Kinase CK-MB (CK-2) Troponin T NT-Pro-B Natriuret Pep Total Protein Albumin Triglycerides TSH Arterial Blood Glucose 151 H Arterial Blood Ionized Calcium Urine pH Urine WBC (Auto) Urine Creatinine 10/22/20 10/22/20 10/22/20 06:18 11:34 11:44 WBC RBC Hgb Hct RDW Lymph % (Auto) [place] % (Auto) Eos % (Auto) Lymph # (Auto) [place] # (Auto) Eos # (Auto) Seg Neutrophils % Lymphocytes % (Manual) Monocytes % (Manual) Seg Neutrophils # Seg Neutrophils # Man Lymphocytes # (Manual) Monocytes # (Manual) D-Dimer Heparin Anti-Xa Level ABG pH 7.278 L POC ABG pCO2 67.8 H POC ABG pO2 ABG pO2 ABG HCO3 ABG O2 Saturation ABG Base Excess ABG Hemoglobin 10.2 L ABG Oxyhemoglobin ABG Sodium ABG Potassium ABG Chloride ABG Glucose 172 H VBG pH Oxyhemoglobin Carboxyhemoglobin Sodium Potassium Chloride Carbon Dioxide BUN Creatinine Glucose POC Glucose 137 H 147 H Lactic Acid Calcium Phosphorus Magnesium Total Bilirubin AST ALT Ammonia Lactate Dehydrogenase Total Creatine Kinase CK-MB (CK-2) Troponin T NT-Pro-B Natriuret Pep Total Protein Albumin Triglycerides TSH Arterial Blood Glucose 172 H Arterial Blood Ionized Calcium Urine pH Urine WBC (Auto) Urine Creatinine 10/22/20 10/22/20 10/23/20 17:40 23:55 05:11 WBC RBC Hgb Hct RDW Lymph % (Auto) [place] % (Auto) Eos % (Auto) Lymph # (Auto) [place] # (Auto) Eos # (Auto) Seg Neutrophils % Lymphocytes % (Manual) Monocytes % (Manual) Seg Neutrophils # Seg Neutrophils # Man Lymphocytes # (Manual) Monocytes # (Manual) D-Dimer Heparin Anti-Xa Level ABG pH POC ABG pCO2 63.6 H POC ABG pO2 81.2 L ABG pO2 ABG HCO3 ABG O2 Saturation ABG Base Excess ABG Hemoglobin 10.6 L ABG Oxyhemoglobin ABG Sodium ABG Potassium ABG Chloride 109.0 H ABG Glucose 149 H VBG pH Oxyhemoglobin Carboxyhemoglobin Sodium Potassium Chloride Carbon Dioxide BUN Creatinine Glucose POC Glucose 141 H 139 H Lactic Acid Calcium Phosphorus Magnesium Total Bilirubin AST ALT Ammonia Lactate Dehydrogenase Total Creatine Kinase CK-MB (CK-2) Troponin T NT-Pro-B Natriuret Pep Total Protein Albumin Triglycerides TSH Arterial Blood Glucose 149 H Arterial Blood Ionized Calcium Urine pH Urine WBC (Auto) Urine Creatinine 10/23/20 10/23/20 10/23/20 05:39 06:00 11:32 WBC RBC Hgb Hct RDW Lymph % (Auto) [place] % (Auto) Eos % (Auto) Lymph # (Auto) [place] # (Auto) Eos # (Auto) Seg Neutrophils % Lymphocytes % (Manual) Monocytes % (Manual) Seg Neutrophils # Seg Neutrophils # Man Lymphocytes # (Manual) Monocytes # (Manual) D-Dimer Heparin Anti-Xa Level ABG pH POC ABG pCO2 POC ABG pO2 ABG pO2 ABG HCO3 ABG O2 Saturation ABG Base Excess ABG Hemoglobin ABG Oxyhemoglobin ABG Sodium ABG Potassium ABG Chloride ABG Glucose VBG pH Oxyhemoglobin Carboxyhemoglobin Sodium 146 H Potassium Chloride Carbon Dioxide 35 H BUN 92 H Creatinine 2.0 H Glucose 144 H POC Glucose 139 H 176 H Lactic Acid Calcium Phosphorus Magnesium Total Bilirubin AST ALT Ammonia Lactate Dehydrogenase Total Creatine Kinase CK-MB (CK-2) Troponin T NT-Pro-B Natriuret Pep Total Protein Albumin Triglycerides TSH Arterial Blood Glucose Arterial Blood Ionized Calcium Urine pH Urine WBC (Auto) Urine Creatinine 10/23/20 10/23/20 10/24/20 11:34 17:55 05:33 WBC RBC Hgb Hct RDW Lymph % (Auto) [place] % (Auto) Eos % (Auto) Lymph # (Auto) [place] # (Auto) Eos # (Auto) Seg Neutrophils % Lymphocytes % (Manual) Monocytes % (Manual) Seg Neutrophils # Seg Neutrophils # Man Lymphocytes # (Manual) Monocytes # (Manual) D-Dimer Heparin Anti-Xa Level ABG pH POC ABG pCO2 POC ABG pO2 ABG pO2 ABG HCO3 ABG O2 Saturation ABG Base Excess ABG Hemoglobin ABG Oxyhemoglobin ABG Sodium ABG Potassium ABG Chloride ABG Glucose VBG pH Oxyhemoglobin Carboxyhemoglobin Sodium 147 H Potassium Chloride Carbon Dioxide 32 H BUN 76 H Creatinine 1.7 H Glucose 172 H POC Glucose 173 H 135 H Lactic Acid Calcium Phosphorus Magnesium Total Bilirubin AST ALT Ammonia Lactate Dehydrogenase Total Creatine Kinase CK-MB (CK-2) Troponin T NT-Pro-B Natriuret Pep Total Protein Albumin Triglycerides TSH Arterial Blood Glucose Arterial Blood Ionized Calcium Urine pH Urine WBC (Auto) Urine Creatinine 10/24/20 10/24/20 10/24/20 05:41 12:09 18:09 WBC RBC Hgb Hct RDW Lymph % (Auto) [place] % (Auto) Eos % (Auto) Lymph # (Auto) [place] # (Auto) Eos # (Auto) Seg Neutrophils % Lymphocytes % (Manual) Monocytes % (Manual) Seg Neutrophils # Seg Neutrophils # Man Lymphocytes # (Manual) Monocytes # (Manual) D-Dimer Heparin Anti-Xa Level ABG pH POC ABG pCO2 POC ABG pO2 ABG pO2 ABG HCO3 ABG O2 Saturation ABG Base Excess ABG Hemoglobin ABG Oxyhemoglobin ABG Sodium ABG Potassium ABG Chloride ABG Glucose VBG pH Oxyhemoglobin Carboxyhemoglobin Sodium Potassium Chloride Carbon Dioxide BUN Creatinine Glucose POC Glucose 156 H 154 H 132 H Lactic Acid Calcium Phosphorus Magnesium Total Bilirubin AST ALT Ammonia Lactate Dehydrogenase Total Creatine Kinase CK-MB (CK-2) Troponin T NT-Pro-B Natriuret Pep Total Protein Albumin Triglycerides TSH Arterial Blood Glucose Arterial Blood Ionized Calcium Urine pH Urine WBC (Auto) Urine Creatinine 10/24/20 10/25/20 10/25/20 23:39 05:29 08:55 WBC RBC Hgb Hct RDW Lymph % (Auto) [place] % (Auto) Eos % (Auto) Lymph # (Auto) [place] # (Auto) Eos # (Auto) Seg Neutrophils % Lymphocytes % (Manual) Monocytes % (Manual) Seg Neutrophils # Seg Neutrophils # Man Lymphocytes # (Manual) Monocytes # (Manual) D-Dimer Heparin Anti-Xa Level ABG pH POC ABG pCO2 POC ABG pO2 ABG pO2 ABG HCO3 ABG O2 Saturation ABG Base Excess ABG Hemoglobin ABG Oxyhemoglobin ABG Sodium ABG Potassium ABG Chloride ABG Glucose VBG pH Oxyhemoglobin Carboxyhemoglobin Sodium 150 H Potassium Chloride 108.3 H Carbon Dioxide 32 H BUN 57 H Creatinine 1.5 H Glucose 142 H POC Glucose 131 H 142 H Lactic Acid Calcium Phosphorus Magnesium Total Bilirubin AST ALT Ammonia Lactate Dehydrogenase Total Creatine Kinase CK-MB (CK-2) Troponin T NT-Pro-B Natriuret Pep Total Protein Albumin Triglycerides TSH Arterial Blood Glucose Arterial Blood Ionized Calcium Urine pH Urine WBC (Auto) Urine Creatinine 10/25/20 10/25/20 10/25/20 08:55 11:08 18:10 WBC 14.3 H RBC 3.57 L Hgb 10.3 L Hct 31.6 L RDW Lymph % (Auto) [place] % (Auto) Eos % (Auto) Lymph # (Auto) [place] # (Auto) Eos # (Auto) Seg Neutrophils % Lymphocytes % (Manual) Monocytes % (Manual) Seg Neutrophils # Seg Neutrophils # Man Lymphocytes # (Manual) Monocytes # (Manual) D-Dimer Heparin Anti-Xa Level ABG pH POC ABG pCO2 52.3 H POC ABG pO2 ABG pO2 ABG HCO3 ABG O2 Saturation ABG Base Excess ABG Hemoglobin 11.2 L ABG Oxyhemoglobin ABG Sodium ABG Potassium ABG Chloride 108.0 H ABG Glucose 167 H VBG pH Oxyhemoglobin Carboxyhemoglobin Sodium Potassium Chloride Carbon Dioxide BUN Creatinine Glucose POC Glucose 157 H Lactic Acid Calcium Phosphorus Magnesium Total Bilirubin AST ALT Ammonia Lactate Dehydrogenase Total Creatine Kinase CK-MB (CK-2) Troponin T NT-Pro-B Natriuret Pep Total Protein Albumin Triglycerides TSH Arterial Blood Glucose 167 H Arterial Blood Ionized Calcium Urine pH Urine WBC (Auto) Urine Creatinine 10/25/20 10/26/20 10/26/20 18:20 00:20 06:08 WBC RBC Hgb Hct RDW Lymph % (Auto) [place] % (Auto) Eos % (Auto) Lymph # (Auto) [place] # (Auto) Eos # (Auto) Seg Neutrophils % Lymphocytes % (Manual) Monocytes % (Manual) Seg Neutrophils # Seg Neutrophils # Man Lymphocytes # (Manual) Monocytes # (Manual) D-Dimer Heparin Anti-Xa Level ABG pH POC ABG pCO2 POC ABG pO2 ABG pO2 ABG HCO3 ABG O2 Saturation ABG Base Excess ABG Hemoglobin ABG Oxyhemoglobin ABG Sodium ABG Potassium ABG Chloride ABG Glucose VBG pH Oxyhemoglobin Carboxyhemoglobin Sodium Potassium Chloride Carbon Dioxide BUN Creatinine Glucose POC Glucose 127 H 108 H 119 H Lactic Acid Calcium Phosphorus Magnesium Total Bilirubin AST ALT Ammonia Lactate Dehydrogenase Total Creatine Kinase CK-MB (CK-2) Troponin T NT-Pro-B Natriuret Pep Total Protein Albumin Triglycerides TSH Arterial Blood Glucose Arterial Blood Ionized Calcium Urine pH Urine WBC (Auto) Urine Creatinine 10/26/20 10/26/20 10/26/20 07:38 07:38 11:28 WBC 13.5 H RBC 3.37 L Hgb 9.8 L Hct 30.0 L RDW Lymph % (Auto) [place] % (Auto) Eos % (Auto) Lymph # (Auto) [place] # (Auto) Eos # (Auto) Seg Neutrophils % Lymphocytes % (Manual) Monocytes % (Manual) Seg Neutrophils # Seg Neutrophils # Man Lymphocytes # (Manual) Monocytes # (Manual) D-Dimer Heparin Anti-Xa Level ABG pH POC ABG pCO2 POC ABG pO2 ABG pO2 ABG HCO3 ABG O2 Saturation ABG Base Excess ABG Hemoglobin ABG Oxyhemoglobin ABG Sodium ABG Potassium ABG Chloride ABG Glucose VBG pH Oxyhemoglobin Carboxyhemoglobin Sodium 149 H Potassium Chloride 107.6 H Carbon Dioxide 34 H BUN 49 H Creatinine 1.4 H Glucose 137 H POC Glucose 148 H Lactic Acid Calcium Phosphorus Magnesium Total Bilirubin AST ALT Ammonia Lactate Dehydrogenase Total Creatine Kinase CK-MB (CK-2) Troponin T NT-Pro-B Natriuret Pep Total Protein Albumin Triglycerides TSH Arterial Blood Glucose Arterial Blood Ionized Calcium Urine pH Urine WBC (Auto) Urine Creatinine 10/26/20 10/26/20 10/27/20 18:17 23:37 05:08 WBC RBC Hgb Hct RDW Lymph % (Auto) [place] % (Auto) Eos % (Auto) Lymph # (Auto) [place] # (Auto) Eos # (Auto) Seg Neutrophils % Lymphocytes % (Manual) Monocytes % (Manual) Seg Neutrophils # Seg Neutrophils # Man Lymphocytes # (Manual) Monocytes # (Manual) D-Dimer Heparin Anti-Xa Level ABG pH POC ABG pCO2 POC ABG pO2 ABG pO2 ABG HCO3 ABG O2 Saturation ABG Base Excess ABG Hemoglobin ABG Oxyhemoglobin ABG Sodium ABG Potassium ABG Chloride ABG Glucose VBG pH Oxyhemoglobin Carboxyhemoglobin Sodium Potassium Chloride Carbon Dioxide BUN Creatinine Glucose POC Glucose 121 H 152 H 120 H Lactic Acid Calcium Phosphorus Magnesium Total Bilirubin AST ALT Ammonia Lactate Dehydrogenase Total Creatine Kinase CK-MB (CK-2) Troponin T NT-Pro-B Natriuret Pep Total Protein Albumin Triglycerides TSH Arterial Blood Glucose Arterial Blood Ionized Calcium Urine pH Urine WBC (Auto) Urine Creatinine 10/27/20 10/27/20 10/27/20 07:30 07:30 11:59 WBC RBC 3.46 L Hgb 10.2 L Hct 30.9 L RDW Lymph % (Auto) [place] % (Auto) Eos % (Auto) Lymph # (Auto) [place] # (Auto) Eos # (Auto) Seg Neutrophils % Lymphocytes % (Manual) Monocytes % (Manual) Seg Neutrophils # Seg Neutrophils # Man Lymphocytes # (Manual) Monocytes # (Manual) D-Dimer Heparin Anti-Xa Level ABG pH POC ABG pCO2 POC ABG pO2 ABG pO2 ABG HCO3 ABG O2 Saturation ABG Base Excess ABG Hemoglobin ABG Oxyhemoglobin ABG Sodium ABG Potassium ABG Chloride ABG Glucose VBG pH Oxyhemoglobin Carboxyhemoglobin Sodium 146 H Potassium Chloride Carbon Dioxide 34 H BUN 45 H Creatinine Glucose 131 H POC Glucose 143 H Lactic Acid Calcium Phosphorus Magnesium Total Bilirubin AST ALT Ammonia Lactate Dehydrogenase Total Creatine Kinase CK-MB (CK-2) Troponin T NT-Pro-B Natriuret Pep Total Protein Albumin Triglycerides TSH Arterial Blood Glucose Arterial Blood Ionized Calcium Urine pH Urine WBC (Auto) Urine Creatinine 10/27/20 10/27/20 10/28/20 18:52 23:03 07:00 WBC RBC Hgb Hct RDW Lymph % (Auto) [place] % (Auto) Eos % (Auto) Lymph # (Auto) [place] # (Auto) Eos # (Auto) Seg Neutrophils % Lymphocytes % (Manual) Monocytes % (Manual) Seg Neutrophils # Seg Neutrophils # Man Lymphocytes # (Manual) Monocytes # (Manual) D-Dimer Heparin Anti-Xa Level ABG pH POC ABG pCO2 POC ABG pO2 ABG pO2 ABG HCO3 ABG O2 Saturation ABG Base Excess ABG Hemoglobin ABG Oxyhemoglobin ABG Sodium ABG Potassium ABG Chloride ABG Glucose VBG pH Oxyhemoglobin Carboxyhemoglobin Sodium 147 H Potassium Chloride Carbon Dioxide 35 H BUN 39 H Creatinine Glucose 133 H POC Glucose 119 H 158 H Lactic Acid Calcium Phosphorus Magnesium Total Bilirubin AST ALT Ammonia Lactate Dehydrogenase Total Creatine Kinase CK-MB (CK-2) Troponin T NT-Pro-B Natriuret Pep Total Protein Albumin Triglycerides TSH Arterial Blood Glucose Arterial Blood Ionized Calcium Urine pH Urine WBC (Auto) Urine Creatinine 10/28/20 10/28/20 10/28/20 09:00 11:47 17:15 WBC 12.5 H RBC 3.58 L Hgb 10.5 L Hct 32.1 L RDW Lymph % (Auto) [place] % (Auto) Eos % (Auto) Lymph # (Auto) [place] # (Auto) Eos # (Auto) Seg Neutrophils % Lymphocytes % (Manual) Monocytes % (Manual) Seg Neutrophils # Seg Neutrophils # Man Lymphocytes # (Manual) Monocytes # (Manual) D-Dimer Heparin Anti-Xa Level ABG pH POC ABG pCO2 POC ABG pO2 ABG pO2 ABG HCO3 ABG O2 Saturation ABG Base Excess ABG Hemoglobin ABG Oxyhemoglobin ABG Sodium ABG Potassium ABG Chloride ABG Glucose VBG pH Oxyhemoglobin Carboxyhemoglobin Sodium Potassium Chloride Carbon Dioxide BUN Creatinine Glucose POC Glucose 129 H 109 H Lactic Acid Calcium Phosphorus Magnesium Total Bilirubin AST ALT Ammonia Lactate Dehydrogenase Total Creatine Kinase CK-MB (CK-2) Troponin T NT-Pro-B Natriuret Pep Total Protein Albumin Triglycerides TSH Arterial Blood Glucose Arterial Blood Ionized Calcium Urine pH Urine WBC (Auto) Urine Creatinine 10/28/20 10/29/20 10/29/20 23:31 04:23 04:23 WBC 13.6 H RBC 3.47 L Hgb 10.5 L Hct 30.7 L RDW 15.4 H Lymph % (Auto) [place] % (Auto) Eos % (Auto) Lymph # (Auto) [place] # (Auto) Eos # (Auto) Seg Neutrophils % Lymphocytes % (Manual) Monocytes % (Manual) Seg Neutrophils # Seg Neutrophils # Man Lymphocytes # (Manual) Monocytes # (Manual) D-Dimer Heparin Anti-Xa Level ABG pH POC ABG pCO2 POC ABG pO2 ABG pO2 ABG HCO3 ABG O2 Saturation ABG Base Excess ABG Hemoglobin ABG Oxyhemoglobin ABG Sodium ABG Potassium ABG Chloride ABG Glucose VBG pH Oxyhemoglobin Carboxyhemoglobin Sodium Potassium Chloride Carbon Dioxide 35 H BUN 34 H Creatinine Glucose 107 H POC Glucose 138 H Lactic Acid Calcium Phosphorus Magnesium Total Bilirubin AST ALT Ammonia Lactate Dehydrogenase Total Creatine Kinase CK-MB (CK-2) Troponin T NT-Pro-B Natriuret Pep Total Protein Albumin Triglycerides TSH Arterial Blood Glucose Arterial Blood Ionized Calcium Urine pH Urine WBC (Auto) Urine Creatinine 10/29/20 10/29/20 10/29/20 05:21 11:49 23:19 WBC RBC Hgb Hct RDW Lymph % (Auto) [place] % (Auto) Eos % (Auto) Lymph # (Auto) [place] # (Auto) Eos # (Auto) Seg Neutrophils % Lymphocytes % (Manual) Monocytes % (Manual) Seg Neutrophils # Seg Neutrophils # Man Lymphocytes # (Manual) Monocytes # (Manual) D-Dimer Heparin Anti-Xa Level ABG pH POC ABG pCO2 POC ABG pO2 ABG pO2 ABG HCO3 ABG O2 Saturation ABG Base Excess ABG Hemoglobin ABG Oxyhemoglobin ABG Sodium ABG Potassium ABG Chloride ABG Glucose VBG pH Oxyhemoglobin Carboxyhemoglobin Sodium Potassium Chloride Carbon Dioxide BUN Creatinine Glucose POC Glucose 115 H 124 H 129 H Lactic Acid Calcium Phosphorus Magnesium Total Bilirubin AST ALT Ammonia Lactate Dehydrogenase Total Creatine Kinase CK-MB (CK-2) Troponin T NT-Pro-B Natriuret Pep Total Protein Albumin Triglycerides TSH Arterial Blood Glucose Arterial Blood Ionized Calcium Urine pH Urine WBC (Auto) Urine Creatinine 10/30/20 10/30/20 10/30/20 04:59 05:10 11:52 WBC RBC Hgb Hct RDW Lymph % (Auto) [place] % (Auto) Eos % (Auto) Lymph # (Auto) [place] # (Auto) Eos # (Auto) Seg Neutrophils % Lymphocytes % (Manual) Monocytes % (Manual) Seg Neutrophils # Seg Neutrophils # Man Lymphocytes # (Manual) Monocytes # (Manual) D-Dimer Heparin Anti-Xa Level ABG pH POC ABG pCO2 POC ABG pO2 ABG pO2 ABG HCO3 ABG O2 Saturation ABG Base Excess ABG Hemoglobin ABG Oxyhemoglobin ABG Sodium ABG Potassium ABG Chloride ABG Glucose VBG pH Oxyhemoglobin Carboxyhemoglobin Sodium Potassium Chloride Carbon Dioxide 34 H BUN 33 H Creatinine Glucose 128 H POC Glucose 126 H 132 H Lactic Acid Calcium Phosphorus Magnesium Total Bilirubin AST ALT Ammonia Lactate Dehydrogenase Total Creatine Kinase CK-MB (CK-2) Troponin T NT-Pro-B Natriuret Pep Total Protein Albumin Triglycerides TSH Arterial Blood Glucose Arterial Blood Ionized Calcium Urine pH Urine WBC (Auto) Urine Creatinine 10/30/20 10/30/20 10/31/20 16:59 23:19 04:00 WBC RBC Hgb Hct RDW Lymph % (Auto) [place] % (Auto) Eos % (Auto) Lymph # (Auto) [place] # (Auto) Eos # (Auto) Seg Neutrophils % Lymphocytes % (Manual) Monocytes % (Manual) Seg Neutrophils # Seg Neutrophils # Man Lymphocytes # (Manual) Monocytes # (Manual) D-Dimer Heparin Anti-Xa Level ABG pH POC ABG pCO2 POC ABG pO2 ABG pO2 ABG HCO3 ABG O2 Saturation ABG Base Excess ABG Hemoglobin ABG Oxyhemoglobin ABG Sodium ABG Potassium ABG Chloride ABG Glucose VBG pH Oxyhemoglobin Carboxyhemoglobin Sodium Potassium Chloride Carbon Dioxide 38 H BUN 32 H Creatinine Glucose 121 H POC Glucose 118 H 138 H Lactic Acid Calcium Phosphorus Magnesium Total Bilirubin AST ALT Ammonia Lactate Dehydrogenase Total Creatine Kinase CK-MB (CK-2) Troponin T NT-Pro-B Natriuret Pep Total Protein Albumin Triglycerides TSH Arterial Blood Glucose Arterial Blood Ionized Calcium Urine pH Urine WBC (Auto) Urine Creatinine 10/31/20 10/31/20 10/31/20 05:13 11:09 16:17 WBC RBC Hgb Hct RDW Lymph % (Auto) [place] % (Auto) Eos % (Auto) Lymph # (Auto) [place] # (Auto) Eos # (Auto) Seg Neutrophils % Lymphocytes % (Manual) Monocytes % (Manual) Seg Neutrophils # Seg Neutrophils # Man Lymphocytes # (Manual) Monocytes # (Manual) D-Dimer Heparin Anti-Xa Level ABG pH POC ABG pCO2 71.1 H POC ABG pO2 67.4 L ABG pO2 ABG HCO3 ABG O2 Saturation ABG Base Excess ABG Hemoglobin 10.9 L ABG Oxyhemoglobin 90.7 L ABG Sodium ABG Potassium ABG Chloride ABG Glucose 134 H VBG pH Oxyhemoglobin Carboxyhemoglobin Sodium Potassium Chloride Carbon Dioxide BUN Creatinine Glucose POC Glucose 110 H 138 H Lactic Acid Calcium Phosphorus Magnesium Total Bilirubin AST ALT Ammonia Lactate Dehydrogenase Total Creatine Kinase CK-MB (CK-2) Troponin T NT-Pro-B Natriuret Pep Total Protein Albumin Triglycerides TSH Arterial Blood Glucose 134 H Arterial Blood Ionized Calcium Urine pH Urine WBC (Auto) Urine Creatinine 10/31/20 10/31/20 11/01/20 18:16 23:56 04:09 WBC 11.3 H RBC 3.05 L Hgb 9.0 L Hct 27.3 L RDW Lymph % (Auto) [place] % (Auto) Eos % (Auto) Lymph # (Auto) [place] # (Auto) Eos # (Auto) Seg Neutrophils % Lymphocytes % (Manual) Monocytes % (Manual) Seg Neutrophils # Seg Neutrophils # Man Lymphocytes # (Manual) Monocytes # (Manual) D-Dimer Heparin Anti-Xa Level ABG pH POC ABG pCO2 POC ABG pO2 ABG pO2 ABG HCO3 ABG O2 Saturation ABG Base Excess ABG Hemoglobin ABG Oxyhemoglobin ABG Sodium ABG Potassium ABG Chloride ABG Glucose VBG pH Oxyhemoglobin Carboxyhemoglobin Sodium Potassium Chloride Carbon Dioxide BUN Creatinine Glucose POC Glucose 135 H 122 H Lactic Acid Calcium Phosphorus Magnesium Total Bilirubin AST ALT Ammonia Lactate Dehydrogenase Total Creatine Kinase CK-MB (CK-2) Troponin T NT-Pro-B Natriuret Pep Total Protein Albumin Triglycerides TSH Arterial Blood Glucose Arterial Blood Ionized Calcium Urine pH Urine WBC (Auto) Urine Creatinine 11/01/20 11/01/20 11/01/20 05:10 11:51 17:17 WBC RBC Hgb Hct RDW Lymph % (Auto) [place] % (Auto) Eos % (Auto) Lymph # (Auto) [place] # (Auto) Eos # (Auto) Seg Neutrophils % Lymphocytes % (Manual) Monocytes % (Manual) Seg Neutrophils # Seg Neutrophils # Man Lymphocytes # (Manual) Monocytes # (Manual) D-Dimer Heparin Anti-Xa Level ABG pH POC ABG pCO2 POC ABG pO2 ABG pO2 ABG HCO3 ABG O2 Saturation ABG Base Excess ABG Hemoglobin ABG Oxyhemoglobin ABG Sodium ABG Potassium ABG Chloride ABG Glucose VBG pH Oxyhemoglobin Carboxyhemoglobin Sodium Potassium Chloride Carbon Dioxide BUN Creatinine Glucose POC Glucose 123 H 123 H 120 H Lactic Acid Calcium Phosphorus Magnesium Total Bilirubin AST ALT Ammonia Lactate Dehydrogenase Total Creatine Kinase CK-MB (CK-2) Troponin T NT-Pro-B Natriuret Pep Total Protein Albumin Triglycerides TSH Arterial Blood Glucose Arterial Blood Ionized Calcium Urine pH Urine WBC (Auto) Urine Creatinine 11/02/20 11/02/20 11/02/20 03:14 05:37 05:37 WBC RBC Hgb 9.8 L Hct 29.5 L RDW Lymph % (Auto) [place] % (Auto) Eos % (Auto) Lymph # (Auto) [place] # (Auto) Eos # (Auto) Seg Neutrophils % Lymphocytes % (Manual) Monocytes % (Manual) Seg Neutrophils # Seg Neutrophils # Man Lymphocytes # (Manual) Monocytes # (Manual) D-Dimer Heparin Anti-Xa Level ABG pH POC ABG pCO2 58.9 H POC ABG pO2 79.9 L ABG pO2 ABG HCO3 ABG O2 Saturation ABG Base Excess ABG Hemoglobin 10.6 L ABG Oxyhemoglobin ABG Sodium ABG Potassium ABG Chloride ABG Glucose 110 H VBG pH Oxyhemoglobin Carboxyhemoglobin Sodium Potassium Chloride Carbon Dioxide 37 H BUN 28 H Creatinine Glucose 106 H POC Glucose Lactic Acid Calcium Phosphorus Magnesium Total Bilirubin AST ALT Ammonia Lactate Dehydrogenase Total Creatine Kinase CK-MB (CK-2) Troponin T NT-Pro-B Natriuret Pep Total Protein Albumin Triglycerides TSH Arterial Blood Glucose 110 H Arterial Blood Ionized Calcium Urine pH Urine WBC (Auto) Urine Creatinine 11/02/20 11/03/20 11/03/20 23:29 04:45 04:45 WBC 11.8 H RBC 3.07 L Hgb 9.0 L Hct 27.2 L RDW Lymph % (Auto) 11.4 L [place] % (Auto) 9.5 H Eos % (Auto) Lymph # (Auto) [place] # (Auto) 1.1 H Eos # (Auto) Seg Neutrophils % 75.9 H Lymphocytes % (Manual) Monocytes % (Manual) Seg Neutrophils # 9.0 H Seg Neutrophils # Man Lymphocytes # (Manual) Monocytes # (Manual) D-Dimer Heparin Anti-Xa Level ABG pH POC ABG pCO2 POC ABG pO2 ABG pO2 ABG HCO3 ABG O2 Saturation ABG Base Excess ABG Hemoglobin ABG Oxyhemoglobin ABG Sodium ABG Potassium ABG Chloride ABG Glucose VBG pH Oxyhemoglobin Carboxyhemoglobin Sodium 146 H Potassium Chloride Carbon Dioxide 39 H BUN 26 H Creatinine Glucose POC Glucose 129 H Lactic Acid Calcium Phosphorus Magnesium Total Bilirubin AST ALT Ammonia Lactate Dehydrogenase Total Creatine Kinase CK-MB (CK-2) Troponin T NT-Pro-B Natriuret Pep Total Protein Albumin Triglycerides TSH Arterial Blood Glucose Arterial Blood Ionized Calcium Urine pH Urine WBC (Auto) Urine Creatinine 11/03/20 11/03/20 11/03/20 05:05 11:51 17:43 WBC RBC Hgb Hct RDW Lymph % (Auto) [place] % (Auto) Eos % (Auto) Lymph # (Auto) [place] # (Auto) Eos # (Auto) Seg Neutrophils % Lymphocytes % (Manual) Monocytes % (Manual) Seg Neutrophils # Seg Neutrophils # Man Lymphocytes # (Manual) Monocytes # (Manual) D-Dimer Heparin Anti-Xa Level ABG pH 7.452 H POC ABG pCO2 55.4 H POC ABG pO2 129.1 H ABG pO2 ABG HCO3 ABG O2 Saturation ABG Base Excess ABG Hemoglobin 9.3 L ABG Oxyhemoglobin ABG Sodium ABG Potassium ABG Chloride ABG Glucose 99 H VBG pH Oxyhemoglobin Carboxyhemoglobin 1.7 H Sodium Potassium Chloride Carbon Dioxide BUN Creatinine Glucose POC Glucose 131 H 125 H Lactic Acid Calcium Phosphorus Magnesium Total Bilirubin AST ALT Ammonia Lactate Dehydrogenase Total Creatine Kinase CK-MB (CK-2) Troponin T NT-Pro-B Natriuret Pep Total Protein Albumin Triglycerides TSH Arterial Blood Glucose 99 H Arterial Blood Ionized Calcium Urine pH Urine WBC (Auto) Urine Creatinine 11/03/20 11/04/20 11/04/20 23:27 04:00 05:10 WBC RBC Hgb Hct RDW Lymph % (Auto) [place] % (Auto) Eos % (Auto) Lymph # (Auto) [place] # (Auto) Eos # (Auto) Seg Neutrophils % Lymphocytes % (Manual) Monocytes % (Manual) Seg Neutrophils # Seg Neutrophils # Man Lymphocytes # (Manual) Monocytes # (Manual) D-Dimer Heparin Anti-Xa Level ABG pH POC ABG pCO2 POC ABG pO2 ABG pO2 ABG HCO3 ABG O2 Saturation ABG Base Excess ABG Hemoglobin ABG Oxyhemoglobin ABG Sodium ABG Potassium ABG Chloride ABG Glucose VBG pH Oxyhemoglobin Carboxyhemoglobin Sodium Potassium Chloride 95.2 L Carbon Dioxide 40 H BUN 26 H Creatinine Glucose 128 H POC Glucose 148 H 126 H Lactic Acid Calcium Phosphorus Magnesium Total Bilirubin AST ALT Ammonia Lactate Dehydrogenase Total Creatine Kinase CK-MB (CK-2) Troponin T NT-Pro-B Natriuret Pep Total Protein Albumin Triglycerides TSH Arterial Blood Glucose Arterial Blood Ionized Calcium Urine pH Urine WBC (Auto) Urine Creatinine 11/04/20 11/04/20 11/04/20 11:39 18:00 21:18 WBC RBC Hgb Hct RDW Lymph % (Auto) [place] % (Auto) Eos % (Auto) Lymph # (Auto) [place] # (Auto) Eos # (Auto) Seg Neutrophils % Lymphocytes % (Manual) Monocytes % (Manual) Seg Neutrophils # Seg Neutrophils # Man Lymphocytes # (Manual) Monocytes # (Manual) D-Dimer Heparin Anti-Xa Level ABG pH 7.511 H POC ABG pCO2 49.0 H POC ABG pO2 ABG pO2 ABG HCO3 ABG O2 Saturation ABG Base Excess ABG Hemoglobin 9.5 L ABG Oxyhemoglobin ABG Sodium 135.7 L ABG Potassium ABG Chloride ABG Glucose 152 H VBG pH Oxyhemoglobin Carboxyhemoglobin Sodium Potassium Chloride Carbon Dioxide BUN Creatinine Glucose POC Glucose 142 H 130 H Lactic Acid Calcium Phosphorus Magnesium Total Bilirubin AST ALT Ammonia Lactate Dehydrogenase Total Creatine Kinase CK-MB (CK-2) Troponin T NT-Pro-B Natriuret Pep Total Protein Albumin Triglycerides TSH Arterial Blood Glucose 152 H Arterial Blood Ionized Calcium 4.3 L Urine pH Urine WBC (Auto) Urine Creatinine 11/04/20 11/05/20 11/05/20 23:19 03:30 03:30 WBC RBC 3.02 L Hgb 9.1 L Hct 26.7 L RDW Lymph % (Auto) [place] % (Auto) Eos % (Auto) Lymph # (Auto) [place] # (Auto) Eos # (Auto) Seg Neutrophils % Lymphocytes % (Manual) Monocytes % (Manual) Seg Neutrophils # Seg Neutrophils # Man Lymphocytes # (Manual) Monocytes # (Manual) D-Dimer Heparin Anti-Xa Level ABG pH POC ABG pCO2 POC ABG pO2 ABG pO2 ABG HCO3 ABG O2 Saturation ABG Base Excess ABG Hemoglobin ABG Oxyhemoglobin ABG Sodium ABG Potassium ABG Chloride ABG Glucose VBG pH Oxyhemoglobin Carboxyhemoglobin Sodium Potassium Chloride 93.6 L Carbon Dioxide 40 H BUN 24 H Creatinine Glucose 121 H POC Glucose 126 H Lactic Acid Calcium Phosphorus Magnesium Total Bilirubin AST ALT Ammonia Lactate Dehydrogenase Total Creatine Kinase CK-MB (CK-2) Troponin T NT-Pro-B Natriuret Pep Total Protein Albumin Triglycerides TSH Arterial Blood Glucose Arterial Blood Ionized Calcium Urine pH Urine WBC (Auto) Urine Creatinine 11/05/20 11/05/20 11/05/20 05:24 11:37 17:37 WBC RBC Hgb Hct RDW Lymph % (Auto) [place] % (Auto) Eos % (Auto) Lymph # (Auto) [place] # (Auto) Eos # (Auto) Seg Neutrophils % Lymphocytes % (Manual) Monocytes % (Manual) Seg Neutrophils # Seg Neutrophils # Man Lymphocytes # (Manual) Monocytes # (Manual) D-Dimer Heparin Anti-Xa Level ABG pH POC ABG pCO2 POC ABG pO2 ABG pO2 ABG HCO3 ABG O2 Saturation ABG Base Excess ABG Hemoglobin ABG Oxyhemoglobin ABG Sodium ABG Potassium ABG Chloride ABG Glucose VBG pH Oxyhemoglobin Carboxyhemoglobin Sodium Potassium Chloride Carbon Dioxide BUN Creatinine Glucose POC Glucose 124 H 125 H 153 H Lactic Acid Calcium Phosphorus Magnesium Total Bilirubin AST ALT Ammonia Lactate Dehydrogenase Total Creatine Kinase CK-MB (CK-2) Troponin T NT-Pro-B Natriuret Pep Total Protein Albumin Triglycerides TSH Arterial Blood Glucose Arterial Blood Ionized Calcium Urine pH Urine WBC (Auto) Urine Creatinine 11/05/20 11/06/20 11/06/20 23:20 05:24 12:17 WBC RBC Hgb Hct RDW Lymph % (Auto) [place] % (Auto) Eos % (Auto) Lymph # (Auto) [place] # (Auto) Eos # (Auto) Seg Neutrophils % Lymphocytes % (Manual) Monocytes % (Manual) Seg Neutrophils # Seg Neutrophils # Man Lymphocytes # (Manual) Monocytes # (Manual) D-Dimer Heparin Anti-Xa Level ABG pH POC ABG pCO2 POC ABG pO2 ABG pO2 ABG HCO3 ABG O2 Saturation ABG Base Excess ABG Hemoglobin ABG Oxyhemoglobin ABG Sodium ABG Potassium ABG Chloride ABG Glucose VBG pH Oxyhemoglobin Carboxyhemoglobin Sodium Potassium Chloride Carbon Dioxide BUN Creatinine Glucose POC Glucose 133 H 143 H 139 H Lactic Acid Calcium Phosphorus Magnesium Total Bilirubin AST ALT Ammonia Lactate Dehydrogenase Total Creatine Kinase CK-MB (CK-2) Troponin T NT-Pro-B Natriuret Pep Total Protein Albumin Triglycerides TSH Arterial Blood Glucose Arterial Blood Ionized Calcium Urine pH Urine WBC (Auto) Urine Creatinine 11/06/20 11/06/20 11/07/20 17:38 23:26 04:50 WBC RBC 3.24 L Hgb 9.6 L Hct 29.0 L RDW Lymph % (Auto) [place] % (Auto) 10.3 H Eos % (Auto) 6.9 H Lymph # (Auto) [place] # (Auto) Eos # (Auto) 0.5 H Seg Neutrophils % Lymphocytes % (Manual) Monocytes % (Manual) Seg Neutrophils # Seg Neutrophils # Man Lymphocytes # (Manual) Monocytes # (Manual) D-Dimer Heparin Anti-Xa Level ABG pH POC ABG pCO2 POC ABG pO2 ABG pO2 ABG HCO3 ABG O2 Saturation ABG Base Excess ABG Hemoglobin ABG Oxyhemoglobin ABG Sodium ABG Potassium ABG Chloride ABG Glucose VBG pH Oxyhemoglobin Carboxyhemoglobin Sodium Potassium Chloride Carbon Dioxide BUN Creatinine Glucose POC Glucose 139 H 117 H Lactic Acid Calcium Phosphorus Magnesium Total Bilirubin AST ALT Ammonia Lactate Dehydrogenase Total Creatine Kinase CK-MB (CK-2) Troponin T NT-Pro-B Natriuret Pep Total Protein Albumin Triglycerides TSH Arterial Blood Glucose Arterial Blood Ionized Calcium Urine pH Urine WBC (Auto) Urine Creatinine 11/07/20 11/07/20 11/07/20 04:50 05:10 12:22 WBC RBC Hgb Hct RDW Lymph % (Auto) [place] % (Auto) Eos % (Auto) Lymph # (Auto) [place] # (Auto) Eos # (Auto) Seg Neutrophils % Lymphocytes % (Manual) Monocytes % (Manual) Seg Neutrophils # Seg Neutrophils # Man Lymphocytes # (Manual) Monocytes # (Manual) D-Dimer Heparin Anti-Xa Level ABG pH POC ABG pCO2 POC ABG pO2 ABG pO2 ABG HCO3 ABG O2 Saturation ABG Base Excess ABG Hemoglobin ABG Oxyhemoglobin ABG Sodium ABG Potassium ABG Chloride ABG Glucose VBG pH Oxyhemoglobin Carboxyhemoglobin Sodium Potassium Chloride 97.2 L Carbon Dioxide 36 H BUN 25 H Creatinine Glucose 130 H POC Glucose 115 H 118 H Lactic Acid Calcium Phosphorus Magnesium Total Bilirubin AST ALT Ammonia Lactate Dehydrogenase Total Creatine Kinase CK-MB (CK-2) Troponin T NT-Pro-B Natriuret Pep Total Protein Albumin Triglycerides TSH Arterial Blood Glucose Arterial Blood Ionized Calcium Urine pH Urine WBC (Auto) Urine Creatinine 11/07/20 11/07/20 11/08/20 17:46 23:53 07:16 WBC RBC Hgb Hct RDW Lymph % (Auto) [place] % (Auto) Eos % (Auto) Lymph # (Auto) [place] # (Auto) Eos # (Auto) Seg Neutrophils % Lymphocytes % (Manual) Monocytes % (Manual) Seg Neutrophils # Seg Neutrophils # Man Lymphocytes # (Manual) Monocytes # (Manual) D-Dimer Heparin Anti-Xa Level ABG pH POC ABG pCO2 POC ABG pO2 ABG pO2 ABG HCO3 ABG O2 Saturation ABG Base Excess ABG Hemoglobin ABG Oxyhemoglobin ABG Sodium ABG Potassium ABG Chloride ABG Glucose VBG pH Oxyhemoglobin Carboxyhemoglobin Sodium Potassium Chloride Carbon Dioxide BUN Creatinine Glucose POC Glucose 150 H 141 H 134 H Lactic Acid Calcium Phosphorus Magnesium Total Bilirubin AST ALT Ammonia Lactate Dehydrogenase Total Creatine Kinase CK-MB (CK-2) Troponin T NT-Pro-B Natriuret Pep Total Protein Albumin Triglycerides TSH Arterial Blood Glucose Arterial Blood Ionized Calcium Urine pH Urine WBC (Auto) Urine Creatinine 11/08/20 11:35 WBC RBC Hgb Hct RDW Lymph % (Auto) [place] % (Auto) Eos % (Auto) Lymph # (Auto) [place] # (Auto) Eos # (Auto) Seg Neutrophils % Lymphocytes % (Manual) Monocytes % (Manual) Seg Neutrophils # Seg Neutrophils # Man Lymphocytes # (Manual) Monocytes # (Manual) D-Dimer Heparin Anti-Xa Level ABG pH POC ABG pCO2 POC ABG pO2 ABG pO2 ABG HCO3 ABG O2 Saturation ABG Base Excess ABG Hemoglobin ABG Oxyhemoglobin ABG Sodium ABG Potassium ABG Chloride ABG Glucose VBG pH Oxyhemoglobin Carboxyhemoglobin Sodium Potassium Chloride Carbon Dioxide BUN Creatinine Glucose POC Glucose 148 H Lactic Acid Calcium Phosphorus Magnesium Total Bilirubin AST ALT Ammonia Lactate Dehydrogenase Total Creatine Kinase CK-MB (CK-2) Troponin T NT-Pro-B Natriuret Pep Total Protein Albumin Triglycerides TSH Arterial Blood Glucose Arterial Blood Ionized Calcium Urine pH Urine WBC (Auto) Urine Creatinine Allied health notes reviewed: nursing
[2020-11-08] MEDS: LORazepam 2 MG/ML VIAL IV PRN ×2 (18:03→21:39)
[2020-11-08] MEDS: QUEtiapine 200 MG TAB PO SCH (21:09)
[2020-11-09] MEDS: ACETYLCYSTEINE 20% 200 MG/1 ML *FOR INHALATION USE INHALATION SCH ×2 (00:30→08:04)
[2020-11-09] MEDS: hydrALAZINE 25 MG TAB PO SCH ×2 (05:11→14:00)
[2020-11-09] MEDS: GLYCOPYRROLATE 1 MG TAB PO SCH ×3 (05:12→23:32)
[2020-11-09] MEDS: LORazepam 2 MG/ML VIAL IV PRN ×3 (06:07→20:03)
[2020-11-09] MEDS: HYDROmorphone 1 MG/1 ML INJ IV PRN ×4 (06:07→23:31)
[2020-11-09] MEDS: ALBUTEROL 2.5 MG/3 ML NEBU IH PRN ×2 (08:04→20:12)
[2020-11-09] MEDS: levETIRAcetam 500 MG/5 ML ORAL LIQD PO SCH ×2 (09:21→23:44)
[2020-11-09] MEDS: DOCUSATE SODIUM 100 MG/10 ML ORAL LIQD PO SCH ×2 (09:22→23:32)
[2020-11-09] MEDS: METOPROLOL TARTRATE 50 MG TAB PO SCH ×3 (09:22→20:03)
[2020-11-09] MEDS: POLYETHYLENE GLYCOL 3350 17 GM POWDER PO SCH (09:22)
[2020-11-09] MEDS: LANSOPRAZOLE 30 MG SOLUTAB FEEDTUBE SCH ×2 (09:22→23:32)
[2020-11-09] MEDS: amLODIPine 10 MG TAB PO SCH (09:22)
[2020-11-09] MEDS: QUEtiapine 25 MG TAB PO SCH (09:23)
[2020-11-09] MEDS: QUEtiapine 100 MG TAB PO SCH (09:23)
--- NOTE | 2020-11-09 11:18 | Progress Note ---
Assessment and Plan Assessment and plan: This is a 55-year-old male with hypertension, asthma, obesity who was admitted on 10/10 after cardiac arrest x2 (supposedly after COVID-19 vaccine injection), sepsis, right-sided pneumonia, NSTEMI type II, acute heart failure, acute hypoxic respiratory failure, acute kidney injury and anoxic brain injury. Sepsis s/p multiple Cardiac Arrests s/p right-sided pneumonia MRSA in tracheal aspirate NSTEMI type II Acute heart failure Afib/Aflutter Acute hypoxic respiratory failure Acute kidney injury (improved) Transaminitis HTN Obesity -Infectious disease, CCM, GI, nephrology, cardiology, surgery consulted, appreciate recommendations -Antibiotic therapy -10/18 recultured (blood/sputum/nasal discharge and urinalysis), tracheal aspirate with MRSA -S/p Linezolid -Continue antihypertensive regimen (changed to p.o.), titrate as needed -s/p IV amiodarone for A. fib/a flutter now on p.o. beta-shital -Trend CBC, BMP, LFT -trach/peg 10/27 -Resume SBT as tolerated and trach collar trials -Mucomyst for 5 days -Avoid nephrotoxic medications, strict intake and output, renal ultrasound shows no obstruction -10/10 echocardiogram shows left internal systolic function normal, moderate concentric left ventricle hypertrophy, mild to side diastolic dysfunction, LVEF 55 to 60% with no pericardial effusion -Bilateral Doppler ultrasound negative for DVT/SVT which shows bilateral popliteal cysts -MRI Brain shows restricted diffusion and increased T2 signal cerebral cortex which can be seen in the setting of anoxic brain injury and/ or status epilepticus. -Repeat EEG shows significant generalized slowing compatible with to moderate severe diffuse neuropathy recently compatible with anoxic/ischemic encephalop athy -s/p D5W at 50ml/hr x 1 liter, currently on tube feedings and tolerating 11/09/2020. No new issues. Continue trach care, secretion control and airway management. Continue tube feedings which the patient is tolerating. Gastrostomy tube care. History Interval history: No new issues overnight. Hospitalist Physical - Constitutional Vitals: Temp Pulse Resp BP Pulse Ox 99 F 79 20 164/82 95 11/09/20 08:36 11/09/20 10:00 11/09/20 08:04 11/09/20 10:00 11/09/20 10:00 General appearance: Present: no acute distress, other (Remains intubated ) HEART Score - HEART Score EKG: Non-specific Age: 45-65 Troponin: Troponin T 0.125 ng/mL (0.00-0.029) H* D 10/12/20 04:00 Troponin: 1-3x normal limit - Critical Actions Critical Actions: 4-6 pts:12-16.6% risk of adverse cardiac event. Should be admitted Results - Labs CBC & Chem 7: 11/07/20 04:50 11/07/20 04:50 Labs: Laboratory Last Values WBC 7.6 K/mm3 (4.5-11.0) 11/07/20 04:50 RBC 3.24 M/mm3 (3.65-5.03) L 11/07/20 04:50 Hgb 9.6 gm/dl (11.8-15.2) L 11/07/20 04:50 Hct 29.0 % (35.5-45.6) L 11/07/20 04:50 MCV 90 fl (84-94) 11/07/20 04:50 MCH 30 pg (28-32) 11/07/20 04:50 MCHC 33 % (32-34) 11/07/20 04:50 RDW 15.2 % (13.2-15.2) 11/07/20 04:50 Plt Count 236 K/mm3 (140-440) 11/07/20 04:50 Lymph % (Auto) 19.1 % (13.4-35.0) 11/07/20 04:50 Leake % (Auto) 10.3 % (0.0-7.3) H 11/07/20 04:50 Eos % (Auto) 6.9 % (0.0-4.3) H 11/07/20 04:50 Baso % (Auto) 0.6 % (0.0-1.8) 11/07/20 04:50 Lymph # (Auto) 1.5 K/mm3 (1.2-5.4) 11/07/20 04:50 Leake # (Auto) 0.8 K/mm3 (0.0-0.8) 11/07/20 04:50 Eos # (Auto) 0.5 K/mm3 (0.0-0.4) H 11/07/20 04:50 Baso # (Auto) 0.0 K/mm3 (0.0-0.1) 11/07/20 04:50 Add Manual Diff Complete 10/10/20 18:18 Total Counted 100 10/10/20 18:18 Seg Neutrophils % 63.1 % (40.0-70.0) 11/07/20 04:50 Seg Neuts % (Manual) 60.0 % (40.0-70.0) 10/10/20 18:18 Band Neutrophils % 27.0 % 10/10/20 18:18 Lymphocytes % (Manual) 4.0 % (13.4-35.0) L 10/10/20 18:18 Monocytes % (Manual) 9.0 % (0.0-7.3) H 10/10/20 18:18 Eosinophils % (Manual) 4.0 % (0.0-4.3) 10/10/20 10:48 Metamyelocytes % 1.0 % 10/10/20 10:48 Nucleated RBC % Not Reportable 10/10/20 18:18 Seg Neutrophils # 4.8 K/mm3 (1.8-7.7) 11/07/20 04:50 Seg Neutrophils # Man 13.8 K/mm3 (1.8-7.7) H 10/10/20 18:18 Band Neutrophils # 6.2 K/mm3 10/10/20 18:18 Lymphocytes # (Manual) 0.9 K/mm3 (1.2-5.4) L 10/10/20 18:18 Abs React Lymphs (Man) 0.0 K/mm3 10/10/20 18:18 Monocytes # (Manual) 2.1 K/mm3 (0.0-0.8) H 10/10/20 18:18 Eosinophils # (Manual) 0.0 K/mm3 (0.0-0.4) 10/10/20 18:18 Basophils # (Manual) 0.0 K/mm3 (0.0-0.1) 10/10/20 18:18 Metamyelocytes # 0.0 K/mm3 10/10/20 18:18 Myelocytes # 0.0 K/mm3 10/10/20 18:18 Promyelocytes # 0.0 K/mm3 10/10/20 18:18 Blast Cells # 0.0 K/mm3 10/10/20 18:18 WBC Morphology Not Reportable 10/10/20 18:18 Hypersegmented Neuts Not Reportable 10/10/20 18:18 Hyposegmented Neuts Not Reportable 10/10/20 18:18 Hypogranular Neuts Not Reportable 10/10/20 18:18 Smudge Cells Not Reportable 10/10/20 18:18 Toxic Granulation Not Reportable 10/10/20 18:18 Toxic Vacuolation Not Reportable 10/10/20 18:18 Dohle Bodies Not Reportable 10/10/20 18:18 Pelger-Huet Anomaly Not Reportable 10/10/20 18:18 Dionicio Rods Not Reportable 10/10/20 18:18 Platelet Estimate Consistent w auto 10/10/20 18:18 Clumped Platelets Not Reportable 10/10/20 18:18 Plt Clumps, EDTA Not Reportable 10/10/20 18:18 Large Platelets Rare 10/10/20 18:18 Giant Platelets Rare 10/10/20 18:18 Platelet Satelliting Not Reportable 10/10/20 18:18 Plt Morphology Comment Not Reportable 10/10/20 18:18 RBC Morphology Not Reportable 10/10/20 18:18 Dimorphic RBCs Not Reportable 10/10/20 18:18 Polychromasia Not Reportable 10/10/20 18:18 Hypochromasia Not Reportable 10/10/20 18:18 Poikilocytosis Not Reportable 10/10/20 18:18 Anisocytosis Not Reportable 10/10/20 18:18 Microcytosis Not Reportable 10/10/20 18:18 Macrocytosis Not Reportable 10/10/20 18:18 Spherocytes Not Reportable 10/10/20 18:18 Pappenheimer Bodies Not Reportable 10/10/20 18:18 Sickle Cells Not Reportable 10/10/20 18:18 Target Cells Not Reportable 10/10/20 18:18 Tear Drop Cells Not Reportable 10/10/20 18:18 Ovalocytes Not Reportable 10/10/20 18:18 Helmet Cells Not Reportable 10/10/20 18:18 [place] Bodies Not Reportable 10/10/20 18:18 Sumner Rings Not Reportable 10/10/20 18:18 Adelfo Cells Not Reportable 10/10/20 18:18 Bite Cells Not Reportable 10/10/20 18:18 Crenated Cell Not Reportable 10/10/20 18:18 Elliptocytes Not Reportable 10/10/20 18:18 Acanthocytes (Spur) Not Reportable 10/10/20 18:18 Rouleaux Not Reportable 10/10/20 18:18 Hemoglobin C Crystals Not Reportable 10/10/20 18:18 Schistocytes Not Reportable 10/10/20 18:18 Malaria parasites Not Reportable 10/10/20 18:18 Mauricio Bodies Not Reportable 10/10/20 18:18 Hem Pathologist Commnt No 10/10/20 18:18 PT 13.5 Sec. (12.2-14.9) 10/28/20 07:00 INR 1.05 (0.87-1.13) 10/28/20 07:00 APTT 26.9 Sec. (24.2-36.6) 10/10/20 18:18 D-Dimer 679.5 ng/mlDDU (0-234) H 10/10/20 10:48 Heparin Anti-Xa Level 0.22 U.I./ml (0.3-0.7) L 10/11/20 08:35 ABG pH 7.511 (7.320-7.450) H 11/04/20 21:18 POC ABG pCO2 49.0 mmHg (32.0-48.0) H 11/04/20 21:18 ABG pCO2 55.5 mm Hg 10/16/20 05:10 POC ABG pO2 88.5 mmHg (83-108) 11/04/20 21:18 ABG pO2 104.5 mm Hg (80.0-90.0) H 10/16/20 05:10 POC ABG HCO3 38.3 11/04/20 21:18 ABG HCO3 35.1 mmol/L (20.0-26.0) H 10/16/20 05:10 ABG O2 Saturation 96.9 (0-100) 11/04/20 21:18 ABG O2 Content 10.8 (0.0-44) 10/16/20 05:10 POC ABG Base Excess 13.8 11/04/20 21:18 ABG Base Excess 9.5 mmol/L (-2.0-3.0) H 10/16/20 05:10 ABG Hemoglobin 9.5 (12.0-17.5) L 11/04/20 21:18 ABG Oxyhemoglobin 95.9 (94-98) 11/04/20 21:18 ABG Carboxyhemoglobin 1.9 % (0.0-5.0) 10/16/20 05:10 ABG Methemoglobin 0.3 (0.0-1.5) 11/04/20 21:18 ABG Sodium 135.7 mmol/L (136.0-145.0) L 11/04/20 21:18 ABG Potassium 3.9 mmol/L (3.40-4.50) 11/04/20 21:18 ABG Chloride 98.0 mmol/L (98-107) 11/04/20 21:18 ABG Glucose 152 mg/dL (65-95) H 11/04/20 21:18 VBG pH 6.870 (7.320-7.420) L* 10/10/20 10:48 Oxyhemoglobin 95.3 % (95.0-99.0) 10/16/20 05:10 Carboxyhemoglobin 0.7 (0.5-1.5) 11/04/20 21:18 FiO2 35 % 10/16/20 05:10 FiO2 % 35.0 11/04/20 21:18 Sodium 139 mmol/L (137-145) 11/07/20 04:50 Potassium 4.4 mmol/L (3.6-5.0) 11/07/20 04:50 Chloride 97.2 mmol/L (98-107) L 11/07/20 04:50 Carbon Dioxide 36 mmol/L (22-30) H 11/07/20 04:50 Anion Gap 10 mmol/L 11/07/20 04:50 BUN 25 mg/dL (9-20) H 11/07/20 04:50 Creatinine 1.1 mg/dL (0.8-1.3) 11/07/20 04:50 Estimated GFR > 60 ml/min 11/07/20 04:50 BUN/Creatinine Ratio 23 % 11/07/20 04:50 Glucose 130 mg/dL (75-100) H 11/07/20 04:50 POC Glucose 105 mg/dL (70-105) 11/09/20 06:02 Hemoglobin A1c 6.0 % (4-6) 10/11/20 02:00 Lactic Acid 1.10 mmol/L (0.7-2.0) 10/13/20 04:52 Calcium 8.9 mg/dL (8.4-10.2) 11/07/20 04:50 Phosphorus 5.20 mg/dL (2.5-4.5) H D 10/17/20 03:32 Magnesium 2.30 mg/dL (1.7-2.3) 10/17/20 03:32 Ferritin 81.4 ng/mL (30.0-300.0) 10/10/20 10:48 Total Bilirubin 1.70 mg/dL (0.1-1.2) H 10/18/20 03:27 AST 37 units/L (5-40) 10/18/20 03:27 ALT 32 units/L (7-56) 10/18/20 03:27 Alkaline Phosphatase 97 units/L (35-129) 10/18/20 03:27 Ammonia 214.0 umol/L (25-60) H 10/10/20 10:46 Lactate Dehydrogenase 386 units/L (91-180) H 10/10/20 10:48 Total Creatine Kinase 1192 units/L (55-170) H 10/10/20 18:18 CK-MB (CK-2) 21.7 ng/mL (0.0-4.0) H 10/10/20 18:18 CK-MB (CK-2) Rel Index 1.8 (0-4) 10/10/20 18:18 Troponin T 0.125 ng/mL (0.00-0.029) H* D 10/12/20 04:00 C-Reactive Protein 0.90 mg/dL (0.00-1.30) 10/10/20 10:48 NT-Pro-B Natriuret Pep 1187 pg/mL (0-900) H 10/10/20 10:46 Total Protein 6.3 g/dL (6.3-8.2) 10/18/20 03:27 Albumin 3.1 g/dL (3.9-5) L 10/18/20 03:27 Albumin/Globulin Ratio 1.0 % 10/18/20 03:27 Triglycerides 278 mg/dL (2-149) H 10/13/20 04:52 Cholesterol 138 mg/dL (50-199) 10/10/20 18:18 LDL Cholesterol Direct 76 mg/dL (50-130) 10/10/20 18:18 HDL Cholesterol 49 mg/dL (40-59) 10/10/20 18:18 Cholesterol/HDL Ratio 2.81 % 10/10/20 18:18 Procalcitonin 4.98 ng/mL (<0.15) 10/15/20 04:12 TSH 6.260 mlU/mL (0.270-4.200) H 10/10/20 10:46 Arterial Blood Glucose 152 mg/dL (65-95) H 11/04/20 21:18 Arterial Blood Ionized Calcium 4.3 mg/dL (4.6-5.3) L 11/04/20 21:18 Urine Color Angelica (Yellow) 10/18/20 Unknown Urine Turbidity Cloudy (Clear) 10/18/20 Unknown Urine pH 5.0 (5.0-7.0) 10/18/20 Unknown Ur Specific [place] 1.017 (1.003-1.030) 10/18/20 Unknown Urine Protein 100 mg/dl mg/dL (Negative) 10/18/20 Unknown Urine Glucose (UA) Neg mg/dL (Negative) 10/18/20 Unknown Urine Ketones Neg mg/dL (Negative) 10/18/20 Unknown Urine Blood Lg (Negative) 10/18/20 Unknown Urine Nitrite Neg (Negative) 10/18/20 Unknown Urine Bilirubin Neg (Negative) 10/18/20 Unknown Urine Urobilinogen 4.0 mg/dL (<2.0) 10/18/20 Unknown Ur Leukocyte Esterase Neg (Negative) 10/18/20 Unknown Urine WBC (Auto) 115.0 /HPF (0.0-6.0) H 10/18/20 Unknown Urine RBC (Auto) 98.0 /HPF (0.0-6.0) 10/18/20 Unknown U Epithel Cells (Auto) 2.0 /HPF (0-13.0) 10/18/20 Unknown Urine WBC Clumps 3+ /HPF 10/18/20 Unknown Urine Mucus Few /HPF 10/11/20 13:30 Urine Eosinophils None seen (None Seen) 10/11/20 13:30 Urine Creatinine 93.7 mg/dL (0.1-20.0) H 10/19/20 13:14 Urine Sodium 25 mmol/L 10/19/20 13:14 Urine Urea Nitrogen 845 10/19/20 13:14 Nasal Screen MRSA (PCR) Positive (Negative) 10/20/20 13:30 Random Vancomycin 5.8 ug/mL (0-40.0) 10/21/20 06:30 Urine Opiates Screen Negative 10/10/20 10:50 Urine Methadone Screen Negative 10/10/20 10:50 Ur Barbiturates Screen Negative 10/10/20 10:50 Ur Phencyclidine Scrn Negative 10/10/20 10:50 Ur Amphetamines Screen Negative 10/10/20 10:50 U Benzodiazepines Scrn Negative 10/10/20 10:50 Urine Cocaine Screen Negative 10/10/20 10:50 U Marijuana (THC) Screen Positive 10/10/20 10:50 Drugs of Abuse Note Disclamer 10/10/20 10:50 Plasma/Serum Alcohol < 0.01 % (0-0.07) 10/10/20 10:48 Coronavirus (PCR) Negative (Negative) 10/11/20 Unknown Blood Type AB POSITIVE 10/10/20 10:48 Antibody Screen Negative 10/10/20 10:48 Tuttle/IV: Voiding Method Incontinent Active Medications - Current Medications Current Medications: Generic Name Dose Route Start Last Admin Trade Name Freq PRN Reason Stop Dose Admin Acetaminophen 650 mg 10/10/20 21:51 10/20/20 09:11 Acetaminophen 325 Mg Tab PO 650 mg Q4H PRN Administration Pain MILD(1-3)/Fever >100.5/SALVADOR Acetaminophen 650 mg 10/11/20 11:24 10/17/20 17:16 Acetaminophen 650 Mg Rect Supp [place] 650 mg Q6H PRN Administration Fever >101 Albuterol 2.5 mg 10/11/20 13:12 11/09/20 08:04 Albuterol 2.5 Mg/3 Ml Nebu IH 2.5 mg Q6HRT PRN Administration Shortness Of Breath Amlodipine Besylate 10 mg 10/25/20 13:00 11/09/20 09:22 Amlodipine 10 Mg Tab PO 10 mg QDAY PEPITO Administration Lipase/Protease/Amylase 1 each 10/10/20 22:18 Lipase 10,500/Protease 25,000/Amylase 43,750 (Units) Dr Santana FEEDTUBE PRN PRN For Clogged Feeding Tube Clonidine HCl 0.3 mg 10/14/20 15:00 11/04/20 15:43 Clonidine Tts 0.3 Mg/24 Hr Patch TD 0.3 mg Fr PEPITO Administration Docusate Sodium 100 mg 10/16/20 22:00 11/09/20 09:22 Docusate Sodium 100 Mg/10 Ml Oral Liqd PO 100 mg BID PEPITO Administration Glycopyrrolate 1 mg 11/04/20 14:00 11/09/20 05:12 Glycopyrrolate 1 Mg Tab PO 1 mg Q8HR PEPITO Administration Heparin Sodium (Porcine) 5,000 unit 10/11/20 22:00 11/08/20 21:08 Heparin 5,000 Unit/1 Ml Vial SUB-Q 5,000 unit Q12HR PEPITO Administration Hydralazine HCl 100 mg 10/24/20 09:30 11/09/20 05:11 Hydralazine 25 Mg Tab PO 100 mg Q8HR PEPITO Administration Hydralazine HCl 10 mg 11/02/20 08:46 Hydralazine 20 Mg/1 Ml Inj IV Q6H PRN Hypertension Hydromorphone HCl 0.5 mg 11/01/20 20:55 11/09/20 09:21 Hydromorphone 1 Mg/1 Ml Inj IV 0.5 mg Q3H PRN Administration Pain , Severe (7-10) Hydrophilic Ointment 1 applic 10/10/20 10:34 Lip Therapy Vaseline TP Q2HR PRN Dry Lips Lansoprazole 30 mg 10/24/20 10:00 11/09/20 09:22 Lansoprazole 30 Mg Solutab FEEDTUBE 30 mg BID PEPITO Administration Levetiracetam 500 mg 10/31/20 10:00 11/09/20 09:21 Levetiracetam 500 Mg/5 Ml Oral Liqd PO 500 mg BID PEPITO Administration Lorazepam 1 mg 11/04/20 19:27 11/09/20 06:07 Lorazepam 2 Mg/Ml Vial IV 1 mg Q4H PRN Administration Agitation Metoclopramide HCl 10 mg 10/10/20 21:51 Metoclopramide 10 Mg/2 Ml Inj IV Q6H PRN Nausea And Vomiting Metoprolol Tartrate 100 mg 10/21/20 14:00 11/09/20 09:22 Metoprolol Tartrate 50 Mg Tab PO 100 mg TID PEPITO Administration Multi-Ingred Cream/Lotion/Oil/Oint 1 applic 10/10/20 10:34 Mineral Oil/Petrolatum, White Ophth Oint 3.5 Gm OU Q4HR PRN Dry Eye(s) Ondansetron HCl 4 mg 10/10/20 21:51 11/01/20 20:48 Ondansetron 4 Mg/2 Ml Inj IV 4 mg Q3H PRN Administration Nausea And Vomiting Polyethylene Glycol 17 gm 10/17/20 10:00 11/09/20 09:22 Polyethylene Glycol 3350 17 Gm Powder PO 17 gm QDAY PEPITO Administration Quetiapine Fumarate 100 mg 11/02/20 10:00 11/09/20 09:23 Quetiapine 100 Mg Tab PO 100 mg DAILY PEPITO Administration Quetiapine Fumarate 200 mg 11/07/20 22:00 11/08/20 21:09 Quetiapine 200 Mg Tab PO 200 mg QHS PEPITO Administration Quetiapine Fumarate 25 mg 11/07/20 14:00 11/09/20 09:23 Quetiapine 25 Mg Tab PO 25 mg DAILY PEPITO Administration Scopolamine 1 each 10/17/20 10:00 11/07/20 10:42 Scopolamine Transdermal Patch 72 Hr TD 1 each Q3D PEPITO Administration Simple Syrup 15 ml 10/10/20 22:18 Simple Syrup 15 Ml FEEDTUBE PRN PRN Hypoglycemia Simple Syrup 30 ml 10/10/20 22:18 Simple Syrup 15 Ml FEEDTUBE PRN PRN Hypoglycemia Sodium Bicarbonate 325 mg 10/10/20 22:18 Sodium Bicarbonate 325 Mg Tab FEEDTUBE PRN PRN For Clogged Feeding Tube Sodium Chloride 10 ml 10/10/20 22:00 11/09/20 09:24 Sodium Chloride 0.9% 10 Ml Flush Syringe IV 10 ml BID PEPITO Administration Sodium Chloride 10 ml 10/10/20 21:51 10/21/20 09:56 Sodium Chloride 0.9% 10 Ml Flush Syringe IV 10 ml PRN PRN Administration LINE FLUSH Nutrition/Malnutrition Assess - Dietary Evaluation Nutrition/Malnutrition Findings: Nutrition Notes Start: 10/11/20 08:38 Freq: Status: Active Protocol: Document 11/09/20 08:06 LP (Rec: 11/09/20 08:09 LP [id number]) Nutrition Notes Initial or Follow up Reassessment Current Diagnosis Acute Kidney Injury,Sepsis, Hypertension,Heart Failure, Respiratory Failure Other Pertinent Diagnosis GIB, pneu, MRSA CA, pulmonary edema Current Diet Promote at 80 ml/hr Labs/Tests Reviewed Pertinent Medications Reviewed Height 6 ft Weight 125.6 kg [place] Body Weight (kg) 80.90 BMI 37.5 Weight change and time frame Wt fluctuations expected Weight Status Morbidly Obese Subjective/Other Information Pt tolerating TF at goal rate. Percent of energy/protein needs met: 100%/74% Burn Absent Trauma Absent Difficulty In Swallowing Skin Integrity/Comment DTI to heel Current % PO Negligible Minimum of two criteria No Fluid Accumulation Mild (non-severe) #3 Nutrition Diagnosis Increased nutrient needs ( specify in comment below) Diagnosis Progress(for reassessment Continues documentation) #1 Nutrition Diagnosis Inadequate oral intake Diagnosis Progress(for reassessment Continues documentation) Is patient on ventilator? Yes Is Patient Ambulatory and/or Out of Bed No REE-([facility]-confined to bed) 2570.376 Kcal/Kg value to use for calculation 15 Approximate Energy Requirements Using 1884 kcal/Kg Calculation Used for Recommendations Kcal/kg Additional Notes protein needs: >162g (>2 kgIBW of dry weight) fluid needs: 1 ml/kcal or per MD Nutrition Intervention Change Diet Order: Continue Nutrition Support: Promote at 80 ml/hr flush of 50 ml q4h. Kcal 1,920 Protein (gm) 120 Fluid (mL) 1,611 Goal #1 Tolerate TF Goal #2 Meet at least 70% of protein and 100% of kcal needs via TF Anticipated Discharge Needs: TF Follow-Up By: 11/14/20 Additional Comments Follow for stable TF
[2020-11-09] MEDS: HEPARIN 5,000 UNIT/1 ML VIAL SUB-Q SCH ×2 (12:00→23:33)
--- NOTE | 2020-11-09 14:16 | Progress Note ---
Assessment and Plan Cardiac arrest x3 with ROSC Severe septic and cardiogenic shock Acute respiratory failure with hypoxemia and hypercarbia Acute pulmonary edema MOE (acute kidney injury) Lactic acidosis, severe metabolic acidosis Bilateral pneumonia, aspiration pneumonia Elevated troponins - continue to shoot for RTC t-piece as tolerated - no new issues otherwise, continue care as below; - continue mucomyst nebs - prn gentle diuresis - continue Seroquel for agitation control - daily SAT's and SBT assessment as tolerated - continue contact precautions re: MRSA - complete anti-infective's per ID rec's - follow clinically re: fevers / WBC - Monitor hemodynamics closely - wean supplemental oxygen for target O2 sat's > 92% acutely - VAP bundle addressed - continue lung protective strategies - bronchodilators with pulmonary hygiene per RT - wean per pulmonary driven protocols otherwise - Monitor urine output closely - bicarbonate infusion - avoid nephrotoxins, renally dose all medications - continue to avoid benzodiazepine's, reduce the possibility of delirium - continue Scopolamine for secretion control - continue wound care per RN/WCN - prn analgesia per CPOT score - Maintenance of sleep-wake cycle, avoid delirium - continue enteral nutritional support at goal rate as tolerated - G.I. & VTE prophylaxis - PT/OT/ROM exercises - continue mobility protocols for pressure ulcer prophylaxis - Monitor hemodynamics closely - continue other care per attending / other consultants - discharge planning ongoing concurrently .... Re-evaluate in am & prn CONDITION: CRITICAL PROGNOSIS: GUARDED CODE STATUS: FULL CODE The high probability of a clinically significant, sudden or life-threatening deterioration of the [respiratory, cardiovascular & neurologic] system(s) required my full and direct attention, intervention and personal management. The aggregate critical care time was [32] minutes without overlap. Time includes spe nt on; [x] Data Review and interpretation [x] Patient assessment and monitoring of vital signs [x] Documentation [x] Medication orders and management Subjective Date of service: 11/09/20 Principal diagnosis: Cardiac arrest; Septic Shock; Ac. hypoxemic & hypercapnic resp failure; MOE Interval history: Patient is seen today for: Cardiac arrest with ROSC; Severe septic and c ardiogenic shock; Acute respiratory failure with hypoxemia and hypercarbia; Acute pulmonary edema; MOE; Lactic acidosis; severe metabolic acidosis; Bilateral pneumonia; aspiration pneumonia; Elevated troponins Seen and examined at bedside; 24hour events reviewed; nursing and respiratory care staff consulted; no adverse overnight events reported to me; resting peacefully in bed; rested on MVS overnight; no emesis or overt aspiration; his relative is visiting; secretions still moderate at times Objective Vital Signs - 12hr 11/09/20 11/09/20 11/09/20 02:30 03:00 03:30 Temperature Pulse Rate 65 65 66 Pulse Rate [ Anterior Right Throughout] Respiratory Rate [Anterior Right Throughout] Blood Pressure 131/66 112/51 117/61 O2 Sat by Pulse 91 94 98 Oximetry O2 Sat by Pulse Oximetry [ Assessment] 11/09/20 11/09/20 11/09/20 04:00 04:30 05:00 Temperature Pulse Rate 64 68 77 Pulse Rate [ Anterior Right Throughout] Respiratory Rate [Anterior Right Throughout] Blood Pressure 126/60 126/60 181/79 O2 Sat by Pulse 99 98 97 Oximetry O2 Sat by Pulse Oximetry [ Assessment] 11/09/20 11/09/20 11/09/20 05:11 05:18 05:30 Temperature Pulse Rate 73 72 76 Pulse Rate [ Anterior Right Throughout] Respiratory Rate [Anterior Right Throughout] Blood Pressure 181/79 181/79 151/77 O2 Sat by Pulse 100 98 Oximetry O2 Sat by Pulse Oximetry [ Assessment] 11/09/20 11/09/20 11/09/20 06:00 06:30 07:00 Temperature Pulse Rate 89 86 77 Pulse Rate [ Anterior Right Throughout] Respiratory Rate [Anterior Right Throughout] Blood Pressure 181/79 144/69 152/76 O2 Sat by Pulse 99 99 97 Oximetry O2 Sat by Pulse Oximetry [ Assessment] 11/09/20 11/09/20 11/09/20 07:30 08:00 08:01 Temperature Pulse Rate 79 83 80 Pulse Rate [ Anterior Right Throughout] Respiratory Rate [Anterior Right Throughout] Blood Pressure 162/72 148/68 148/68 O2 Sat by Pulse 95 99 Oximetry O2 Sat by Pulse Oximetry [ Assessment] 11/09/20 11/09/20 11/09/20 08:04 08:20 08:21 Temperature Pulse Rate Pulse Rate [ 80 Anterior Right Throughout] Respiratory 20 Rate [Anterior Right Throughout] Blood Pressure O2 Sat by Pulse 98 Oximetry O2 Sat by Pulse 99 Oximetry [ Assessment] 11/09/20 11/09/20 11/09/20 08:30 08:36 09:00 Temperature 99 F Pulse Rate 82 84 Pulse Rate [ Anterior Right Throughout] Respiratory Rate [Anterior Right Throughout] Blood Pressure 135/68 148/68 O2 Sat by Pulse 96 97 Oximetry O2 Sat by Pulse Oximetry [ Assessment] 11/09/20 11/09/20 11/09/20 09:22 09:30 10:00 Temperature Pulse Rate 81 79 Pulse Rate [ Anterior Right Throughout] Respiratory Rate [Anterior Right Throughout] Blood Pressure 164/75 156/73 164/82 O2 Sat by Pulse 94 95 Oximetry O2 Sat by Pulse Oximetry [ Assessment] 11/09/20 11/09/20 11/09/20 10:30 11:00 11:30 Temperature Pulse Rate 69 70 70 Pulse Rate [ Anterior Right Throughout] Respiratory Rate [Anterior Right Throughout] Blood Pressure 164/82 133/60 133/60 O2 Sat by Pulse 96 97 98 Oximetry O2 Sat by Pulse Oximetry [ Assessment] 11/09/20 11/09/20 11/09/20 12:00 12:06 12:30 Temperature 98.9 F Pulse Rate 67 72 Pulse Rate [ Anterior Right Throughout] Respiratory Rate [Anterior Right Throughout] Blood Pressure 138/60 138/60 O2 Sat by Pulse 98 99 98 Oximetry O2 Sat by Pulse 99 Oximetry [ Assessment] 11/09/20 13:00 Temperature Pulse Rate 73 Pulse Rate [ Anterior Right Throughout] Respiratory Rate [Anterior Right Throughout] Blood Pressure 151/78 O2 Sat by Pulse Oximetry O2 Sat by Pulse Oximetry [ Assessment] Constitutional: appears uncomfortable (mild agitation), other (middle aged obese male with mildly increased respiratory efort at rest) Eyes: non-icteric ENT: oropharynx moist, oropharyngeal exudate pre (thick), other (midline tracheostomy) Neck: supple, no lymphadenopathy, no JVD Effort: mildly labored Ascultation: Bilateral: diminished breath sounds, rhonchi (scant) Percussion: Bilateral: not dull Cardiovascular: regular rate and rhythm, other (S1,S2) Gastrointestinal: normoactive bowel sounds, soft, non-tender, non-distended (protuberant) Integumentary: normal Extremities: no cyanosis, no edema, pulses normal, no ischemia or petechiae Neurologic: pupils equal and round, unable to assess, other (encephalopathic) Psychiatric: other (unable to assess re: AMS) CBC and BMP: 11/07/20 04:50 11/07/20 04:50 ABG, PT/INR, D-dimer: ABG ABG pH 7.511 (7.320-7.450) H 11/04/20 21:18 POC ABG pCO2 49.0 mmHg (32.0-48.0) H 11/04/20 21:18 ABG pCO2 55.5 mm Hg 10/16/20 05:10 POC ABG pO2 88.5 mmHg (83-108) 11/04/20 21:18 ABG pO2 104.5 mm Hg (80.0-90.0) H 10/16/20 05:10 POC ABG HCO3 38.3 11/04/20 21:18 ABG O2 Saturation 96.9 (0-100) 11/04/20 21:18 PT/INR, D-dimer PT 13.5 Sec. (12.2-14.9) 10/28/20 07:00 INR 1.05 (0.87-1.13) 10/28/20 07:00 D-Dimer 679.5 ng/mlDDU (0-234) H 10/10/20 10:48 Abnormal lab findings: Abnormal Labs 10/10/20 10/10/20 10/10/20 10:46 10:46 10:46 WBC RBC Hgb Hct RDW Lymph % (Auto) Frio % (Auto) Eos % (Auto) Lymph # (Auto) Frio # (Auto) Eos # (Auto) Seg Neutrophils % Lymphocytes % (Manual) Monocytes % (Manual) Seg Neutrophils # Seg Neutrophils # Man Lymphocytes # (Manual) Monocytes # (Manual) D-Dimer Heparin Anti-Xa Level ABG pH POC ABG pCO2 POC ABG pO2 ABG pO2 ABG HCO3 ABG O2 Saturation ABG Base Excess ABG Hemoglobin ABG Oxyhemoglobin ABG Sodium ABG Potassium ABG Chloride ABG Glucose VBG pH Oxyhemoglobin Carboxyhemoglobin Sodium Potassium Chloride Carbon Dioxide BUN Creatinine Glucose POC Glucose Lactic Acid 13.60 H* Calcium Phosphorus Magnesium Total Bilirubin AST ALT Ammonia 214.0 H Lactate Dehydrogenase Total Creatine Kinase CK-MB (CK-2) Troponin T NT-Pro-B Natriuret Pep Total Protein Albumin Triglycerides TSH 6.260 H Arterial Blood Glucose Arterial Blood Ionized Calcium Urine pH Urine WBC (Auto) Urine Creatinine 10/10/20 10/10/20 10/10/20 10:46 10:48 10:48 WBC RBC 5.28 H Hgb 15.5 H Hct 48.8 H RDW Lymph % (Auto) Frio % (Auto) Eos % (Auto) Lymph # (Auto) Frio # (Auto) Eos # (Auto) Seg Neutrophils % Lymphocytes % (Manual) 42.0 H Monocytes % (Manual) Seg Neutrophils # Seg Neutrophils # Man Lymphocytes # (Manual) Monocytes # (Manual) D-Dimer Heparin Anti-Xa Level ABG pH POC ABG pCO2 POC ABG pO2 ABG pO2 ABG HCO3 ABG O2 Saturation ABG Base Excess ABG Hemoglobin ABG Oxyhemoglobin ABG Sodium ABG Potassium ABG Chloride ABG Glucose VBG pH Oxyhemoglobin Carboxyhemoglobin Sodium Potassium 3.3 L Chloride 91.2 L Carbon Dioxide BUN Creatinine 1.8 H Glucose 231 H POC Glucose Lactic Acid Calcium Phosphorus Magnesium Total Bilirubin AST 60 H ALT 57 H Ammonia Lactate Dehydrogenase Total Creatine Kinase CK-MB (CK-2) Troponin T NT-Pro-B Natriuret Pep 1187 H Total Protein 9.0 H Albumin Triglycerides TSH Arterial Blood Glucose Arterial Blood Ionized Calcium Urine pH Urine WBC (Auto) Urine Creatinine 10/10/20 10/10/20 10/10/20 10:48 10:48 10:48 WBC RBC Hgb Hct RDW Lymph % (Auto) Frio % (Auto) Eos % (Auto) Lymph # (Auto) Frio # (Auto) Eos # (Auto) Seg Neutrophils % Lymphocytes % (Manual) Monocytes % (Manual) Seg Neutrophils # Seg Neutrophils # Man Lymphocytes # (Manual) Monocytes # (Manual) D-Dimer 679.5 H Heparin Anti-Xa Level ABG pH POC ABG pCO2 POC ABG pO2 ABG pO2 ABG HCO3 ABG O2 Saturation ABG Base Excess ABG Hemoglobin ABG Oxyhemoglobin ABG Sodium ABG Potassium ABG Chloride ABG Glucose VBG pH 6.870 L* Oxyhemoglobin Carboxyhemoglobin Sodium Potassium Chloride Carbon Dioxide BUN Creatinine Glucose POC Glucose Lactic Acid Calcium Phosphorus Magnesium Total Bilirubin AST ALT Ammonia Lactate Dehydrogenase 386 H Total Creatine Kinase CK-MB (CK-2) Troponin T NT-Pro-B Natriuret Pep Total Protein Albumin Triglycerides TSH Arterial Blood Glucose Arterial Blood Ionized Calcium Urine pH Urine WBC (Auto) Urine Creatinine 10/10/20 10/10/20 10/10/20 14:10 14:20 15:50 WBC RBC Hgb Hct RDW Lymph % (Auto) Frio % (Auto) Eos % (Auto) Lymph # (Auto) Frio # (Auto) Eos # (Auto) Seg Neutrophils % Lymphocytes % (Manual) Monocytes % (Manual) Seg Neutrophils # Seg Neutrophils # Man Lymphocytes # (Manual) Monocytes # (Manual) D-Dimer Heparin Anti-Xa Level ABG pH 7.175 L 7.247 L POC ABG pCO2 85.0 H POC ABG pO2 43.7 L ABG pO2 60.3 L ABG HCO3 32.0 H ABG O2 Saturation 86.1 L ABG Base Excess ABG Hemoglobin ABG Oxyhemoglobin 67.7 L ABG Sodium ABG Potassium ABG Chloride ABG Glucose 247 H VBG pH Oxyhemoglobin 84.4 L Carboxyhemoglobin Sodium Potassium Chloride Carbon Dioxide BUN Creatinine Glucose POC Glucose Lactic Acid 4.00 H* Calcium Phosphorus Magnesium Total Bilirubin AST ALT Ammonia Lactate Dehydrogenase Total Creatine Kinase CK-MB (CK-2) Troponin T NT-Pro-B Natriuret Pep Total Protein Albumin Triglycerides TSH Arterial Blood Glucose 247 H Arterial Blood Ionized Calcium 4.4 L Urine pH Urine WBC (Auto) Urine Creatinine 10/10/20 10/10/20 10/10/20 15:50 16:22 18:18 WBC RBC Hgb Hct RDW Lymph % (Auto) Frio % (Auto) Eos % (Auto) Lymph # (Auto) Frio # (Auto) Eos # (Auto) Seg Neutrophils % Lymphocytes % (Manual) Monocytes % (Manual) Seg Neutrophils # Seg Neutrophils # Man Lymphocytes # (Manual) Monocytes # (Manual) D-Dimer Heparin Anti-Xa Level ABG pH 7.171 L POC ABG pCO2 96.6 H POC ABG pO2 55.3 L ABG pO2 ABG HCO3 ABG O2 Saturation ABG Base Excess ABG Hemoglobin ABG Oxyhemoglobin 81.4 L ABG Sodium ABG Potassium ABG Chloride ABG Glucose 115 H VBG pH Oxyhemoglobin Carboxyhemoglobin Sodium Potassium Chloride Carbon Dioxide BUN Creatinine Glucose POC Glucose 132 H Lactic Acid Calcium Phosphorus Magnesium Total Bilirubin AST ALT Ammonia Lactate Dehydrogenase Total Creatine Kinase 1192 H CK-MB (CK-2) 21.7 H Troponin T 0.377 H* D NT-Pro-B Natriuret Pep Total Protein Albumin Triglycerides TSH Arterial Blood Glucose 115 H Arterial Blood Ionized Calcium Urine pH Urine WBC (Auto) Urine Creatinine 10/10/20 10/10/20 10/10/20 18:18 18:18 22:49 WBC 23.0 H RBC 5.12 H Hgb Hct RDW Lymph % (Auto) Frio % (Auto) Eos % (Auto) Lymph # (Auto) Frio # (Auto) Eos # (Auto) Seg Neutrophils % Lymphocytes % (Manual) 4.0 L Monocytes % (Manual) 9.0 H Seg Neutrophils # Seg Neutrophils # Man 13.8 H Lymphocytes # (Manual) 0.9 L Monocytes # (Manual) 2.1 H D-Dimer Heparin Anti-Xa Level ABG pH POC ABG pCO2 POC ABG pO2 ABG pO2 ABG HCO3 ABG O2 Saturation ABG Base Excess ABG Hemoglobin ABG Oxyhemoglobin ABG Sodium ABG Potassium ABG Chloride ABG Glucose VBG pH Oxyhemoglobin Carboxyhemoglobin Sodium 146 H Potassium Chloride Carbon Dioxide 34 H D BUN 27 H Creatinine 2.7 H Glucose 102 H POC Glucose Lactic Acid Calcium Phosphorus Magnesium Total Bilirubin AST 90 H ALT 66 H Ammonia Lactate Dehydrogenase Total Creatine Kinase CK-MB (CK-2) Troponin T 0.273 H* D NT-Pro-B Natriuret Pep Total Protein Albumin Triglycerides TSH Arterial Blood Glucose Arterial Blood Ionized Calcium Urine pH Urine WBC (Auto) Urine Creatinine 10/11/20 10/11/20 10/11/20 02:00 02:00 02:00 WBC 17.3 H RBC Hgb Hct RDW Lymph % (Auto) 3.9 L Frio % (Auto) Eos % (Auto) Lymph # (Auto) 0.7 L Frio # (Auto) Eos # (Auto) Seg Neutrophils % 93.0 H Lymphocytes % (Manual) Monocytes % (Manual) Seg Neutrophils # 16.1 H Seg Neutrophils # Man Lymphocytes # (Manual) Monocytes # (Manual) D-Dimer Heparin Anti-Xa Level ABG pH POC ABG pCO2 POC ABG pO2 ABG pO2 ABG HCO3 ABG O2 Saturation ABG Base Excess ABG Hemoglobin ABG Oxyhemoglobin ABG Sodium ABG Potassium ABG Chloride ABG Glucose VBG pH Oxyhemoglobin Carboxyhemoglobin Sodium 149 H Potassium 3.3 L Chloride 95.3 L Carbon Dioxide 37 H BUN 29 H Creatinine 2.6 H Glucose POC Glucose Lactic Acid Calcium Phosphorus Magnesium Total Bilirubin AST 80 H ALT 59 H Ammonia Lactate Dehydrogenase Total Creatine Kinase CK-MB (CK-2) Troponin T 0.201 H* D NT-Pro-B Natriuret Pep Total Protein Albumin 3.6 L Triglycerides TSH Arterial Blood Glucose Arterial Blood Ionized Calcium Urine pH Urine WBC (Auto) Urine Creatinine 10/11/20 10/11/20 10/11/20 03:51 08:35 11:15 WBC RBC Hgb Hct RDW Lymph % (Auto) Frio % (Auto) Eos % (Auto) Lymph # (Auto) Frio # (Auto) Eos # (Auto) Seg Neutrophils % Lymphocytes % (Manual) Monocytes % (Manual) Seg Neutrophils # Seg Neutrophils # Man Lymphocytes # (Manual) Monocytes # (Manual) D-Dimer Heparin Anti-Xa Level 0.22 L ABG pH 7.491 H POC ABG pCO2 57.6 H POC ABG pO2 ABG pO2 ABG HCO3 ABG O2 Saturation ABG Base Excess ABG Hemoglobin ABG Oxyhemoglobin ABG Sodium 150.0 H ABG Potassium 3.1 L ABG Chloride 96.0 L ABG Glucose 122 H VBG pH Oxyhemoglobin Carboxyhemoglobin Sodium Potassium Chloride Carbon Dioxide BUN Creatinine Glucose POC Glucose 151 H Lactic Acid Calcium Phosphorus Magnesium Total Bilirubin AST ALT Ammonia Lactate Dehydrogenase Total Creatine Kinase CK-MB (CK-2) Troponin T NT-Pro-B Natriuret Pep Total Protein Albumin Triglycerides TSH Arterial Blood Glucose 122 H Arterial Blood Ionized Calcium 3.9 L Urine pH Urine WBC (Auto) Urine Creatinine 10/11/20 10/11/20 10/11/20 13:30 13:30 13:30 WBC 15.0 H RBC Hgb Hct RDW Lymph % (Auto) Frio % (Auto) Eos % (Auto) Lymph # (Auto) Frio # (Auto) Eos # (Auto) Seg Neutrophils % Lymphocytes % (Manual) Monocytes % (Manual) Seg Neutrophils # Seg Neutrophils # Man Lymphocytes # (Manual) Monocytes # (Manual) D-Dimer Heparin Anti-Xa Level ABG pH POC ABG pCO2 POC ABG pO2 ABG pO2 ABG HCO3 ABG O2 Saturation ABG Base Excess ABG Hemoglobin ABG Oxyhemoglobin ABG Sodium ABG Potassium ABG Chloride ABG Glucose VBG pH Oxyhemoglobin Carboxyhemoglobin Sodium Potassium Chloride Carbon Dioxide BUN Creatinine Glucose POC Glucose Lactic Acid Calcium Phosphorus Magnesium Total Bilirubin AST ALT Ammonia Lactate Dehydrogenase Total Creatine Kinase CK-MB (CK-2) Troponin T NT-Pro-B Natriuret Pep Total Protein Albumin Triglycerides TSH Arterial Blood Glucose Arterial Blood Ionized Calcium Urine pH 9.0 H Urine WBC (Auto) 18.0 H Urine Creatinine 80.5 H 10/11/20 10/11/20 10/12/20 17:17 23:14 03:53 WBC RBC Hgb Hct RDW Lymph % (Auto) Frio % (Auto) Eos % (Auto) Lymph # (Auto) Frio # (Auto) Eos # (Auto) Seg Neutrophils % Lymphocytes % (Manual) Monocytes % (Manual) Seg Neutrophils # Seg Neutrophils # Man Lymphocytes # (Manual) Monocytes # (Manual) D-Dimer Heparin Anti-Xa Level ABG pH 7.545 H POC ABG pCO2 54.6 H POC ABG pO2 231.9 H ABG pO2 ABG HCO3 ABG O2 Saturation ABG Base Excess ABG Hemoglobin ABG Oxyhemoglobin 98.5 H ABG Sodium 150.5 H ABG Potassium 3.2 L ABG Chloride 96.0 L ABG Glucose 148 H VBG pH Oxyhemoglobin Carboxyhemoglobin Sodium Potassium Chloride Carbon Dioxide BUN Creatinine Glucose POC Glucose 121 H 135 H Lactic Acid Calcium Phosphorus Magnesium Total Bilirubin AST ALT Ammonia Lactate Dehydrogenase Total Creatine Kinase CK-MB (CK-2) Troponin T NT-Pro-B Natriuret Pep Total Protein Albumin Triglycerides TSH Arterial Blood Glucose 148 H Arterial Blood Ionized Calcium 3.8 L Urine pH Urine WBC (Auto) Urine Creatinine 10/12/20 10/12/20 10/12/20 04:00 05:10 05:12 WBC 14.3 H RBC Hgb 11.6 L Hct 35.2 L RDW Lymph % (Auto) Frio % (Auto) Eos % (Auto) Lymph # (Auto) Frio # (Auto) Eos # (Auto) Seg Neutrophils % Lymphocytes % (Manual) Monocytes % (Manual) Seg Neutrophils # Seg Neutrophils # Man Lymphocytes # (Manual) Monocytes # (Manual) D-Dimer Heparin Anti-Xa Level ABG pH POC ABG pCO2 POC ABG pO2 ABG pO2 ABG HCO3 ABG O2 Saturation ABG Base Excess ABG Hemoglobin ABG Oxyhemoglobin ABG Sodium ABG Potassium ABG Chloride ABG Glucose VBG pH Oxyhemoglobin Carboxyhemoglobin Sodium 155 H Potassium 3.3 L Chloride 97.9 L Carbon Dioxide 47 H* D BUN 50 H Creatinine 3.4 H Glucose 146 H POC Glucose 137 H Lactic Acid Calcium 8.0 L Phosphorus Magnesium Total Bilirubin AST ALT Ammonia Lactate Dehydrogenase Total Creatine Kinase CK-MB (CK-2) Troponin T 0.125 H* D NT-Pro-B Natriuret Pep Total Protein Albumin Triglycerides TSH Arterial Blood Glucose Arterial Blood Ionized Calcium Urine pH Urine WBC (Auto) Urine Creatinine 10/12/20 10/12/20 10/12/20 11:39 16:01 19:49 WBC RBC Hgb Hct RDW Lymph % (Auto) Frio % (Auto) Eos % (Auto) Lymph # (Auto) Frio # (Auto) Eos # (Auto) Seg Neutrophils % Lymphocytes % (Manual) Monocytes % (Manual) Seg Neutrophils # Seg Neutrophils # Man Lymphocytes # (Manual) Monocytes # (Manual) D-Dimer Heparin Anti-Xa Level ABG pH POC ABG pCO2 POC ABG pO2 ABG pO2 ABG HCO3 ABG O2 Saturation ABG Base Excess ABG Hemoglobin ABG Oxyhemoglobin ABG Sodium ABG Potassium ABG Chloride ABG Glucose VBG pH Oxyhemoglobin Carboxyhemoglobin Sodium 157 H Potassium 3.3 L Chloride Carbon Dioxide 47 H* BUN 52 H Creatinine 3.0 H Glucose 137 H POC Glucose 138 H 119 H Lactic Acid Calcium 8.0 L Phosphorus Magnesium Total Bilirubin AST ALT Ammonia Lactate Dehydrogenase Total Creatine Kinase CK-MB (CK-2) Troponin T NT-Pro-B Natriuret Pep Total Protein Albumin Triglycerides TSH Arterial Blood Glucose Arterial Blood Ionized Calcium Urine pH Urine WBC (Auto) Urine Creatinine 10/12/20 10/13/20 10/13/20 23:37 02:28 04:52 WBC RBC Hgb Hct RDW Lymph % (Auto) Frio % (Auto) Eos % (Auto) Lymph # (Auto) Frio # (Auto) Eos # (Auto) Seg Neutrophils % Lymphocytes % (Manual) Monocytes % (Manual) Seg Neutrophils # Seg Neutrophils # Man Lymphocytes # (Manual) Monocytes # (Manual) D-Dimer Heparin Anti-Xa Level ABG pH 7.485 H POC ABG pCO2 57.1 H POC ABG pO2 ABG pO2 ABG HCO3 ABG O2 Saturation ABG Base Excess ABG Hemoglobin ABG Oxyhemoglobin ABG Sodium 152.4 H ABG Potassium ABG Chloride ABG Glucose 129 H VBG pH Oxyhemoglobin Carboxyhemoglobin Sodium 155 H Potassium Chloride Carbon Dioxide 45 H* BUN 52 H Creatinine 2.7 H Glucose 121 H POC Glucose 131 H Lactic Acid Calcium Phosphorus Magnesium 2.40 H Total Bilirubin AST ALT Ammonia Lactate Dehydrogenase Total Creatine Kinase CK-MB (CK-2) Troponin T NT-Pro-B Natriuret Pep Total Protein Albumin Triglycerides 278 H TSH Arterial Blood Glucose 129 H Arterial Blood Ionized Calcium 4.1 L Urine pH Urine WBC (Auto) Urine Creatinine 10/13/20 10/13/20 10/13/20 04:52 05:13 11:37 WBC 14.7 H RBC Hgb 11.7 L Hct RDW 15.8 H Lymph % (Auto) Frio % (Auto) Eos % (Auto) Lymph # (Auto) Frio # (Auto) Eos # (Auto) Seg Neutrophils % Lymphocytes % (Manual) Monocytes % (Manual) Seg Neutrophils # Seg Neutrophils # Man Lymphocytes # (Manual) Monocytes # (Manual) D-Dimer Heparin Anti-Xa Level ABG pH POC ABG pCO2 POC ABG pO2 ABG pO2 ABG HCO3 ABG O2 Saturation ABG Base Excess ABG Hemoglobin ABG Oxyhemoglobin ABG Sodium ABG Potassium ABG Chloride ABG Glucose VBG pH Oxyhemoglobin Carboxyhemoglobin Sodium Potassium Chloride Carbon Dioxide BUN Creatinine Glucose POC Glucose 116 H 116 H Lactic Acid Calcium Phosphorus Magnesium Total Bilirubin AST ALT Ammonia Lactate Dehydrogenase Total Creatine Kinase CK-MB (CK-2) Troponin T NT-Pro-B Natriuret Pep Total Protein Albumin Triglycerides TSH Arterial Blood Glucose Arterial Blood Ionized Calcium Urine pH Urine WBC (Auto) Urine Creatinine 10/13/20 10/14/20 10/14/20 17:50 03:45 04:46 WBC 11.1 H RBC Hgb Hct RDW 15.3 H Lymph % (Auto) Frio % (Auto) Eos % (Auto) Lymph # (Auto) Frio # (Auto) Eos # (Auto) Seg Neutrophils % Lymphocytes % (Manual) Monocytes % (Manual) Seg Neutrophils # Seg Neutrophils # Man Lymphocytes # (Manual) Monocytes # (Manual) D-Dimer Heparin Anti-Xa Level ABG pH POC ABG pCO2 59.6 H POC ABG pO2 ABG pO2 ABG HCO3 ABG O2 Saturation ABG Base Excess ABG Hemoglobin ABG Oxyhemoglobin ABG Sodium 151.4 H ABG Potassium 3.3 L ABG Chloride ABG Glucose 138 H VBG pH Oxyhemoglobin Carboxyhemoglobin 1.6 H Sodium Potassium Chloride Carbon Dioxide BUN Creatinine Glucose POC Glucose 140 H Lactic Acid Calcium Phosphorus Magnesium Total Bilirubin AST ALT Ammonia Lactate Dehydrogenase Total Creatine Kinase CK-MB (CK-2) Troponin T NT-Pro-B Natriuret Pep Total Protein Albumin Triglycerides TSH Arterial Blood Glucose 138 H Arterial Blood Ionized Calcium 4.5 L Urine pH Urine WBC (Auto) Urine Creatinine 10/14/20 10/14/20 10/14/20 04:46 05:10 11:11 WBC RBC Hgb Hct RDW Lymph % (Auto) Frio % (Auto) Eos % (Auto) Lymph # (Auto) Frio # (Auto) Eos # (Auto) Seg Neutrophils % Lymphocytes % (Manual) Monocytes % (Manual) Seg Neutrophils # Seg Neutrophils # Man Lymphocytes # (Manual) Monocytes # (Manual) D-Dimer Heparin Anti-Xa Level ABG pH POC ABG pCO2 POC ABG pO2 ABG pO2 ABG HCO3 ABG O2 Saturation ABG Base Excess ABG Hemoglobin ABG Oxyhemoglobin ABG Sodium ABG Potassium ABG Chloride ABG Glucose VBG pH Oxyhemoglobin Carboxyhemoglobin Sodium 152 H Potassium 3.5 L Chloride Carbon Dioxide 38 H D BUN 46 H Creatinine 2.3 H Glucose 127 H POC Glucose 116 H 114 H Lactic Acid Calcium Phosphorus Magnesium Total Bilirubin AST ALT Ammonia Lactate Dehydrogenase Total Creatine Kinase CK-MB (CK-2) Troponin T NT-Pro-B Natriuret Pep Total Protein Albumin Triglycerides TSH Arterial Blood Glucose Arterial Blood Ionized Calcium Urine pH Urine WBC (Auto) Urine Creatinine 10/14/20 10/14/20 10/15/20 18:53 23:23 04:12 WBC RBC Hgb Hct RDW Lymph % (Auto) Frio % (Auto) Eos % (Auto) Lymph # (Auto) Frio # (Auto) Eos # (Auto) Seg Neutrophils % Lymphocytes % (Manual) Monocytes % (Manual) Seg Neutrophils # Seg Neutrophils # Man Lymphocytes # (Manual) Monocytes # (Manual) D-Dimer Heparin Anti-Xa Level ABG pH POC ABG pCO2 POC ABG pO2 ABG pO2 ABG HCO3 ABG O2 Saturation ABG Base Excess ABG Hemoglobin ABG Oxyhemoglobin ABG Sodium ABG Potassium ABG Chloride ABG Glucose VBG pH Oxyhemoglobin Carboxyhemoglobin Sodium 149 H Potassium 3.2 L Chloride Carbon Dioxide 37 H BUN 40 H Creatinine 2.0 H Glucose 124 H POC Glucose 128 H 113 H Lactic Acid Calcium Phosphorus Magnesium Total Bilirubin AST ALT Ammonia Lactate Dehydrogenase Total Creatine Kinase CK-MB (CK-2) Troponin T NT-Pro-B Natriuret Pep Total Protein Albumin Triglycerides TSH Arterial Blood Glucose Arterial Blood Ionized Calcium Urine pH Urine WBC (Auto) Urine Creatinine 10/15/20 10/15/20 10/15/20 04:22 11:39 17:36 WBC RBC Hgb Hct RDW Lymph % (Auto) Frio % (Auto) Eos % (Auto) Lymph # (Auto) Frio # (Auto) Eos # (Auto) Seg Neutrophils % Lymphocytes % (Manual) Monocytes % (Manual) Seg Neutrophils # Seg Neutrophils # Man Lymphocytes # (Manual) Monocytes # (Manual) D-Dimer Heparin Anti-Xa Level ABG pH POC ABG pCO2 POC ABG pO2 ABG pO2 115.0 H ABG HCO3 38.1 H ABG O2 Saturation ABG Base Excess 11.3 H ABG Hemoglobin 11.0 L ABG Oxyhemoglobin ABG Sodium ABG Potassium ABG Chloride ABG Glucose VBG pH Oxyhemoglobin Carboxyhemoglobin Sodium Potassium Chloride Carbon Dioxide BUN Creatinine Glucose POC Glucose 123 H 118 H Lactic Acid Calcium Phosphorus Magnesium Total Bilirubin AST ALT Ammonia Lactate Dehydrogenase Total Creatine Kinase CK-MB (CK-2) Troponin T NT-Pro-B Natriuret Pep Total Protein Albumin Triglycerides TSH Arterial Blood Glucose Arterial Blood Ionized Calcium Urine pH Urine WBC (Auto) Urine Creatinine 10/15/20 10/16/20 10/16/20 23:18 03:13 05:10 WBC RBC Hgb Hct RDW Lymph % (Auto) Frio % (Auto) Eos % (Auto) Lymph # (Auto) Frio # (Auto) Eos # (Auto) Seg Neutrophils % Lymphocytes % (Manual) Monocytes % (Manual) Seg Neutrophils # Seg Neutrophils # Man Lymphocytes # (Manual) Monocytes # (Manual) D-Dimer Heparin Anti-Xa Level ABG pH POC ABG pCO2 POC ABG pO2 ABG pO2 104.5 H ABG HCO3 35.1 H ABG O2 Saturation ABG Base Excess 9.5 H ABG Hemoglobin 7.9 L ABG Oxyhemoglobin ABG Sodium ABG Potassium ABG Chloride ABG Glucose VBG pH Oxyhemoglobin Carboxyhemoglobin Sodium Potassium 3.3 L Chloride Carbon Dioxide 33 H BUN 37 H Creatinine 1.4 H Glucose 148 H POC Glucose 135 H Lactic Acid Calcium Phosphorus Magnesium 2.40 H Total Bilirubin AST ALT Ammonia Lactate Dehydrogenase Total Creatine Kinase CK-MB (CK-2) Troponin T NT-Pro-B Natriuret Pep Total Protein Albumin Triglycerides TSH Arterial Blood Glucose Arterial Blood Ionized Calcium Urine pH Urine WBC (Auto) Urine Creatinine 04/11/0210/16/20 10/16/20 06:36 11:08 17:07 WBC RBC Hgb Hct RDW Lymph % (Auto) Frio % (Auto) Eos % (Auto) Lymph # (Auto) Frio # (Auto) Eos # (Auto) Seg Neutrophils % Lymphocytes % (Manual) Monocytes % (Manual) Seg Neutrophils # Seg Neutrophils # Man Lymphocytes # (Manual) Monocytes # (Manual) D-Dimer Heparin Anti-Xa Level ABG pH POC ABG pCO2 POC ABG pO2 ABG pO2 ABG HCO3 ABG O2 Saturation ABG Base Excess ABG Hemoglobin ABG Oxyhemoglobin ABG Sodium ABG Potassium ABG Chloride ABG Glucose VBG pH Oxyhemoglobin Carboxyhemoglobin Sodium Potassium Chloride Carbon Dioxide BUN Creatinine Glucose POC Glucose 150 H 111 H 132 H Lactic Acid Calcium Phosphorus Magnesium Total Bilirubin AST ALT Ammonia Lactate Dehydrogenase Total Creatine Kinase CK-MB (CK-2) Troponin T NT-Pro-B Natriuret Pep Total Protein Albumin Triglycerides TSH Arterial Blood Glucose Arterial Blood Ionized Calcium Urine pH Urine WBC (Auto) Urine Creatinine 10/16/20 10/17/20 10/17/20 23:38 03:32 03:32 WBC RBC Hgb Hct RDW Lymph % (Auto) Frio % (Auto) Eos % (Auto) Lymph # (Auto) Frio # (Auto) Eos # (Auto) Seg Neutrophils % Lymphocytes % (Manual) Monocytes % (Manual) Seg Neutrophils # Seg Neutrophils # Man Lymphocytes # (Manual) Monocytes # (Manual) D-Dimer Heparin Anti-Xa Level ABG pH POC ABG pCO2 POC ABG pO2 ABG pO2 ABG HCO3 ABG O2 Saturation ABG Base Excess ABG Hemoglobin ABG Oxyhemoglobin ABG Sodium ABG Potassium ABG Chloride ABG Glucose VBG pH Oxyhemoglobin Carboxyhemoglobin Sodium 146 H Potassium Chloride Carbon Dioxide 32 H BUN 57 H Creatinine 2.4 H D Glucose 124 H POC Glucose 117 H Lactic Acid Calcium Phosphorus 5.20 H D Magnesium Total Bilirubin AST ALT Ammonia Lactate Dehydrogenase Total Creatine Kinase CK-MB (CK-2) Troponin T NT-Pro-B Natriuret Pep Total Protein Albumin Triglycerides TSH Arterial Blood Glucose Arterial Blood Ionized Calcium Urine pH Urine WBC (Auto) Urine Creatinine 10/17/20 10/17/20 10/18/20 05:10 17:33 00:13 WBC RBC Hgb Hct RDW Lymph % (Auto) Frio % (Auto) Eos % (Auto) Lymph # (Auto) Frio # (Auto) Eos # (Auto) Seg Neutrophils % Lymphocytes % (Manual) Monocytes % (Manual) Seg Neutrophils # Seg Neutrophils # Man Lymphocytes # (Manual) Monocytes # (Manual) D-Dimer Heparin Anti-Xa Level ABG pH POC ABG pCO2 POC ABG pO2 ABG pO2 ABG HCO3 ABG O2 Saturation ABG Base Excess ABG Hemoglobin ABG Oxyhemoglobin ABG Sodium ABG Potassium ABG Chloride ABG Glucose VBG pH Oxyhemoglobin Carboxyhemoglobin Sodium Potassium Chloride Carbon Dioxide BUN Creatinine Glucose POC Glucose 122 H 121 H 23 L Lactic Acid Calcium Phosphorus Magnesium Total Bilirubin AST ALT Ammonia Lactate Dehydrogenase Total Creatine Kinase CK-MB (CK-2) Troponin T NT-Pro-B Natriuret Pep Total Protein Albumin Triglycerides TSH Arterial Blood Glucose Arterial Blood Ionized Calcium Urine pH Urine WBC (Auto) Urine Creatinine 10/18/20 10/18/20 10/18/20 00:16 03:27 03:27 WBC RBC Hgb 11.7 L Hct RDW Lymph % (Auto) Frio % (Auto) Eos % (Auto) Lymph # (Auto) Frio # (Auto) Eos # (Auto) Seg Neutrophils % Lymphocytes % (Manual) Monocytes % (Manual) Seg Neutrophils # Seg Neutrophils # Man Lymphocytes # (Manual) Monocytes # (Manual) D-Dimer Heparin Anti-Xa Level ABG pH POC ABG pCO2 POC ABG pO2 ABG pO2 ABG HCO3 ABG O2 Saturation ABG Base Excess ABG Hemoglobin ABG Oxyhemoglobin ABG Sodium ABG Potassium ABG Chloride ABG Glucose VBG pH Oxyhemoglobin Carboxyhemoglobin Sodium Potassium Chloride 97.6 L Carbon Dioxide BUN 90 H Creatinine 3.3 H Glucose 146 H POC Glucose 134 H Lactic Acid Calcium Phosphorus Magnesium Total Bilirubin 1.70 H AST ALT Ammonia Lactate Dehydrogenase Total Creatine Kinase CK-MB (CK-2) Troponin T NT-Pro-B Natriuret Pep Total Protein Albumin 3.1 L Triglycerides TSH Arterial Blood Glucose Arterial Blood Ionized Calcium Urine pH Urine WBC (Auto) Urine Creatinine 10/18/20 10/18/20 10/18/20 05:09 11:19 17:15 WBC RBC Hgb Hct RDW Lymph % (Auto) Frio % (Auto) Eos % (Auto) Lymph # (Auto) Frio # (Auto) Eos # (Auto) Seg Neutrophils % Lymphocytes % (Manual) Monocytes % (Manual) Seg Neutrophils # Seg Neutrophils # Man Lymphocytes # (Manual) Monocytes # (Manual) D-Dimer Heparin Anti-Xa Level ABG pH POC ABG pCO2 POC ABG pO2 ABG pO2 ABG HCO3 ABG O2 Saturation ABG Base Excess ABG Hemoglobin ABG Oxyhemoglobin ABG Sodium ABG Potassium ABG Chloride ABG Glucose VBG pH Oxyhemoglobin Carboxyhemoglobin Sodium Potassium Chloride Carbon Dioxide BUN Creatinine Glucose POC Glucose 144 H 145 H 151 H Lactic Acid Calcium Phosphorus Magnesium Total Bilirubin AST ALT Ammonia Lactate Dehydrogenase Total Creatine Kinase CK-MB (CK-2) Troponin T NT-Pro-B Natriuret Pep Total Protein Albumin Triglycerides TSH Arterial Blood Glucose Arterial Blood Ionized Calcium Urine pH Urine WBC (Auto) Urine Creatinine 10/18/20 10/18/20 10/19/20 23:16 Unknown 04:55 WBC RBC Hgb Hct RDW Lymph % (Auto) Frio % (Auto) Eos % (Auto) Lymph # (Auto) Frio # (Auto) Eos # (Auto) Seg Neutrophils % Lymphocytes % (Manual) Monocytes % (Manual) Seg Neutrophils # Seg Neutrophils # Man Lymphocytes # (Manual) Monocytes # (Manual) D-Dimer Heparin Anti-Xa Level ABG pH POC ABG pCO2 POC ABG pO2 ABG pO2 ABG HCO3 ABG O2 Saturation ABG Base Excess ABG Hemoglobin ABG Oxyhemoglobin ABG Sodium ABG Potassium ABG Chloride ABG Glucose VBG pH Oxyhemoglobin Carboxyhemoglobin Sodium Potassium Chloride Carbon Dioxide BUN 104 H Creatinine 3.1 H Glucose 139 H POC Glucose 123 H Lactic Acid Calcium Phosphorus Magnesium Total Bilirubin AST ALT Ammonia Lactate Dehydrogenase Total Creatine Kinase CK-MB (CK-2) Troponin T NT-Pro-B Natriuret Pep Total Protein Albumin Triglycerides TSH Arterial Blood Glucose Arterial Blood Ionized Calcium Urine pH Urine WBC (Auto) 115.0 H Urine Creatinine 10/19/20 10/19/20 10/19/20 04:55 11:35 13:14 WBC 15.1 H RBC Hgb 11.1 L Hct 34.4 L RDW Lymph % (Auto) 4.2 L Frio % (Auto) 11.9 H Eos % (Auto) Lymph # (Auto) 0.6 L Frio # (Auto) 1.8 H Eos # (Auto) Seg Neutrophils % 82.0 H Lymphocytes % (Manual) Monocytes % (Manual) Seg Neutrophils # 12.4 H Seg Neutrophils # Man Lymphocytes # (Manual) Monocytes # (Manual) D-Dimer Heparin Anti-Xa Level ABG pH POC ABG pCO2 POC ABG pO2 ABG pO2 ABG HCO3 ABG O2 Saturation ABG Base Excess ABG Hemoglobin ABG Oxyhemoglobin ABG Sodium ABG Potassium ABG Chloride ABG Glucose VBG pH Oxyhemoglobin Carboxyhemoglobin Sodium Potassium Chloride Carbon Dioxide BUN Creatinine Glucose POC Glucose 136 H Lactic Acid Calcium Phosphorus Magnesium Total Bilirubin AST ALT Ammonia Lactate Dehydrogenase Total Creatine Kinase CK-MB (CK-2) Troponin T NT-Pro-B Natriuret Pep Total Protein Albumin Triglycerides TSH Arterial Blood Glucose Arterial Blood Ionized Calcium Urine pH Urine WBC (Auto) Urine Creatinine 93.7 H 10/19/20 10/19/20 10/20/20 17:53 23:39 04:30 WBC RBC Hgb Hct RDW Lymph % (Auto) Frio % (Auto) Eos % (Auto) Lymph # (Auto) Frio # (Auto) Eos # (Auto) Seg Neutrophils % Lymphocytes % (Manual) Monocytes % (Manual) Seg Neutrophils # Seg Neutrophils # Man Lymphocytes # (Manual) Monocytes # (Manual) D-Dimer Heparin Anti-Xa Level ABG pH POC ABG pCO2 POC ABG pO2 ABG pO2 ABG HCO3 ABG O2 Saturation ABG Base Excess ABG Hemoglobin ABG Oxyhemoglobin ABG Sodium ABG Potassium ABG Chloride ABG Glucose VBG pH Oxyhemoglobin Carboxyhemoglobin Sodium Potassium Chloride Carbon Dioxide BUN 104 H Creatinine 2.8 H Glucose 151 H POC Glucose 137 H 133 H Lactic Acid Calcium Phosphorus Magnesium Total Bilirubin AST ALT Ammonia Lactate Dehydrogenase Total Creatine Kinase CK-MB (CK-2) Troponin T NT-Pro-B Natriuret Pep Total Protein Albumin Triglycerides TSH Arterial Blood Glucose Arterial Blood Ionized Calcium Urine pH Urine WBC (Auto) Urine Creatinine 10/20/20 10/20/20 10/20/20 04:30 05:38 11:34 WBC 17.9 H RBC Hgb 11.7 L Hct RDW Lymph % (Auto) Frio % (Auto) Eos % (Auto) Lymph # (Auto) Frio # (Auto) Eos # (Auto) Seg Neutrophils % Lymphocytes % (Manual) Monocytes % (Manual) Seg Neutrophils # Seg Neutrophils # Man Lymphocytes # (Manual) Monocytes # (Manual) D-Dimer Heparin Anti-Xa Level ABG pH POC ABG pCO2 POC ABG pO2 ABG pO2 ABG HCO3 ABG O2 Saturation ABG Base Excess ABG Hemoglobin ABG Oxyhemoglobin ABG Sodium ABG Potassium ABG Chloride ABG Glucose VBG pH Oxyhemoglobin Carboxyhemoglobin Sodium Potassium Chloride Carbon Dioxide BUN Creatinine Glucose POC Glucose 164 H 148 H Lactic Acid Calcium Phosphorus Magnesium Total Bilirubin AST ALT Ammonia Lactate Dehydrogenase Total Creatine Kinase CK-MB (CK-2) Troponin T NT-Pro-B Natriuret Pep Total Protein Albumin Triglycerides TSH Arterial Blood Glucose Arterial Blood Ionized Calcium Urine pH Urine WBC (Auto) Urine Creatinine 10/20/20 10/20/20 10/20/20 17:40 20:20 23:29 WBC RBC Hgb Hct RDW Lymph % (Auto) Frio % (Auto) Eos % (Auto) Lymph # (Auto) Frio # (Auto) Eos # (Auto) Seg Neutrophils % Lymphocytes % (Manual) Monocytes % (Manual) Seg Neutrophils # Seg Neutrophils # Man Lymphocytes # (Manual) Monocytes # (Manual) D-Dimer Heparin Anti-Xa Level ABG pH 7.292 L POC ABG pCO2 68.5 H POC ABG pO2 ABG pO2 ABG HCO3 ABG O2 Saturation ABG Base Excess ABG Hemoglobin 11.6 L ABG Oxyhemoglobin ABG Sodium ABG Potassium ABG Chloride ABG Glucose 145 H VBG pH Oxyhemoglobin Carboxyhemoglobin Sodium Potassium Chloride Carbon Dioxide BUN Creatinine Glucose POC Glucose 130 H 136 H Lactic Acid Calcium Phosphorus Magnesium Total Bilirubin AST ALT Ammonia Lactate Dehydrogenase Total Creatine Kinase CK-MB (CK-2) Troponin T NT-Pro-B Natriuret Pep Total Protein Albumin Triglycerides TSH Arterial Blood Glucose 145 H Arterial Blood Ionized Calcium Urine pH Urine WBC (Auto) Urine Creatinine 10/21/20 10/21/20 10/21/20 04:20 06:26 06:30 WBC RBC Hgb Hct RDW Lymph % (Auto) Frio % (Auto) Eos % (Auto) Lymph # (Auto) Frio # (Auto) Eos # (Auto) Seg Neutrophils % Lymphocytes % (Manual) Monocytes % (Manual) Seg Neutrophils # Seg Neutrophils # Man Lymphocytes # (Manual) Monocytes # (Manual) D-Dimer Heparin Anti-Xa Level ABG pH 7.262 L POC ABG pCO2 72.4 H POC ABG pO2 81.6 L ABG pO2 ABG HCO3 ABG O2 Saturation ABG Base Excess ABG Hemoglobin 11.6 L ABG Oxyhemoglobin ABG Sodium ABG Potassium ABG Chloride ABG Glucose 140 H VBG pH Oxyhemoglobin Carboxyhemoglobin Sodium Potassium Chloride Carbon Dioxide 33 H BUN 104 H Creatinine 2.9 H Glucose 153 H POC Glucose 128 H Lactic Acid Calcium Phosphorus Magnesium Total Bilirubin AST ALT Ammonia Lactate Dehydrogenase Total Creatine Kinase CK-MB (CK-2) Troponin T NT-Pro-B Natriuret Pep Total Protein Albumin Triglycerides TSH Arterial Blood Glucose 140 H Arterial Blood Ionized Calcium Urine pH Urine WBC (Auto) Urine Creatinine 10/21/20 10/21/20 10/21/20 06:30 11:24 17:21 WBC 13.3 H RBC Hgb 10.7 L Hct 32.7 L RDW Lymph % (Auto) Frio % (Auto) Eos % (Auto) Lymph # (Auto) Frio # (Auto) Eos # (Auto) Seg Neutrophils % Lymphocytes % (Manual) Monocytes % (Manual) Seg Neutrophils # Seg Neutrophils # Man Lymphocytes # (Manual) Monocytes # (Manual) D-Dimer Heparin Anti-Xa Level ABG pH POC ABG pCO2 POC ABG pO2 ABG pO2 ABG HCO3 ABG O2 Saturation ABG Base Excess ABG Hemoglobin ABG Oxyhemoglobin ABG Sodium ABG Potassium ABG Chloride ABG Glucose VBG pH Oxyhemoglobin Carboxyhemoglobin Sodium Potassium Chloride Carbon Dioxide BUN Creatinine Glucose POC Glucose 178 H 138 H Lactic Acid Calcium Phosphorus Magnesium Total Bilirubin AST ALT Ammonia Lactate Dehydrogenase Total Creatine Kinase CK-MB (CK-2) Troponin T NT-Pro-B Natriuret Pep Total Protein Albumin Triglycerides TSH Arterial Blood Glucose Arterial Blood Ionized Calcium Urine pH Urine WBC (Auto) Urine Creatinine 10/22/20 10/22/20 10/22/20 00:05 04:30 06:15 WBC RBC Hgb Hct RDW Lymph % (Auto) Frio % (Auto) Eos % (Auto) Lymph # (Auto) Frio # (Auto) Eos # (Auto) Seg Neutrophils % Lymphocytes % (Manual) Monocytes % (Manual) Seg Neutrophils # Seg Neutrophils # Man Lymphocytes # (Manual) Monocytes # (Manual) D-Dimer Heparin Anti-Xa Level ABG pH 7.225 L POC ABG pCO2 76.6 H POC ABG pO2 ABG pO2 ABG HCO3 ABG O2 Saturation ABG Base Excess ABG Hemoglobin 11.1 L ABG Oxyhemoglobin ABG Sodium ABG Potassium ABG Chloride ABG Glucose 151 H VBG pH Oxyhemoglobin Carboxyhemoglobin Sodium Potassium Chloride Carbon Dioxide 32 H BUN 103 H Creatinine 2.7 H Glucose 151 H POC Glucose 135 H Lactic Acid Calcium Phosphorus Magnesium Total Bilirubin AST ALT Ammonia Lactate Dehydrogenase Total Creatine Kinase CK-MB (CK-2) Troponin T NT-Pro-B Natriuret Pep Total Protein Albumin Triglycerides TSH Arterial Blood Glucose 151 H Arterial Blood Ionized Calcium Urine pH Urine WBC (Auto) Urine Creatinine 10/22/20 10/22/20 10/22/20 06:18 11:34 11:44 WBC RBC Hgb Hct RDW Lymph % (Auto) Frio % (Auto) Eos % (Auto) Lymph # (Auto) Frio # (Auto) Eos # (Auto) Seg Neutrophils % Lymphocytes % (Manual) Monocytes % (Manual) Seg Neutrophils # Seg Neutrophils # Man Lymphocytes # (Manual) Monocytes # (Manual) D-Dimer Heparin Anti-Xa Level ABG pH 7.278 L POC ABG pCO2 67.8 H POC ABG pO2 ABG pO2 ABG HCO3 ABG O2 Saturation ABG Base Excess ABG Hemoglobin 10.2 L ABG Oxyhemoglobin ABG Sodium ABG Potassium ABG Chloride ABG Glucose 172 H VBG pH Oxyhemoglobin Carboxyhemoglobin Sodium Potassium Chloride Carbon Dioxide BUN Creatinine Glucose POC Glucose 137 H 147 H Lactic Acid Calcium Phosphorus Magnesium Total Bilirubin AST ALT Ammonia Lactate Dehydrogenase Total Creatine Kinase CK-MB (CK-2) Troponin T NT-Pro-B Natriuret Pep Total Protein Albumin Triglycerides TSH Arterial Blood Glucose 172 H Arterial Blood Ionized Calcium Urine pH Urine WBC (Auto) Urine Creatinine 10/22/20 10/22/20 10/23/20 17:40 23:55 05:11 WBC RBC Hgb Hct RDW Lymph % (Auto) Frio % (Auto) Eos % (Auto) Lymph # (Auto) Frio # (Auto) Eos # (Auto) Seg Neutrophils % Lymphocytes % (Manual) Monocytes % (Manual) Seg Neutrophils # Seg Neutrophils # Man Lymphocytes # (Manual) Monocytes # (Manual) D-Dimer Heparin Anti-Xa Level ABG pH POC ABG pCO2 63.6 H POC ABG pO2 81.2 L ABG pO2 ABG HCO3 ABG O2 Saturation ABG Base Excess ABG Hemoglobin 10.6 L ABG Oxyhemoglobin ABG Sodium ABG Potassium ABG Chloride 109.0 H ABG Glucose 149 H VBG pH Oxyhemoglobin Carboxyhemoglobin Sodium Potassium Chloride Carbon Dioxide BUN Creatinine Glucose POC Glucose 141 H 139 H Lactic Acid Calcium Phosphorus Magnesium Total Bilirubin AST ALT Ammonia Lactate Dehydrogenase Total Creatine Kinase CK-MB (CK-2) Troponin T NT-Pro-B Natriuret Pep Total Protein Albumin Triglycerides TSH Arterial Blood Glucose 149 H Arterial Blood Ionized Calcium Urine pH Urine WBC (Auto) Urine Creatinine 10/23/20 10/23/20 10/23/20 05:39 06:00 11:32 WBC RBC Hgb Hct RDW Lymph % (Auto) Frio % (Auto) Eos % (Auto) Lymph # (Auto) Frio # (Auto) Eos # (Auto) Seg Neutrophils % Lymphocytes % (Manual) Monocytes % (Manual) Seg Neutrophils # Seg Neutrophils # Man Lymphocytes # (Manual) Monocytes # (Manual) D-Dimer Heparin Anti-Xa Level ABG pH POC ABG pCO2 POC ABG pO2 ABG pO2 ABG HCO3 ABG O2 Saturation ABG Base Excess ABG Hemoglobin ABG Oxyhemoglobin ABG Sodium ABG Potassium ABG Chloride ABG Glucose VBG pH Oxyhemoglobin Carboxyhemoglobin Sodium 146 H Potassium Chloride Carbon Dioxide 35 H BUN 92 H Creatinine 2.0 H Glucose 144 H POC Glucose 139 H 176 H Lactic Acid Calcium Phosphorus Magnesium Total Bilirubin AST ALT Ammonia Lactate Dehydrogenase Total Creatine Kinase CK-MB (CK-2) Troponin T NT-Pro-B Natriuret Pep Total Protein Albumin Triglycerides TSH Arterial Blood Glucose Arterial Blood Ionized Calcium Urine pH Urine WBC (Auto) Urine Creatinine 10/23/20 10/23/20 10/24/20 11:34 17:55 05:33 WBC RBC Hgb Hct RDW Lymph % (Auto) Frio % (Auto) Eos % (Auto) Lymph # (Auto) Frio # (Auto) Eos # (Auto) Seg Neutrophils % Lymphocytes % (Manual) Monocytes % (Manual) Seg Neutrophils # Seg Neutrophils # Man Lymphocytes # (Manual) Monocytes # (Manual) D-Dimer Heparin Anti-Xa Level ABG pH POC ABG pCO2 POC ABG pO2 ABG pO2 ABG HCO3 ABG O2 Saturation ABG Base Excess ABG Hemoglobin ABG Oxyhemoglobin ABG Sodium ABG Potassium ABG Chloride ABG Glucose VBG pH Oxyhemoglobin Carboxyhemoglobin Sodium 147 H Potassium Chloride Carbon Dioxide 32 H BUN 76 H Creatinine 1.7 H Glucose 172 H POC Glucose 173 H 135 H Lactic Acid Calcium Phosphorus Magnesium Total Bilirubin AST ALT Ammonia Lactate Dehydrogenase Total Creatine Kinase CK-MB (CK-2) Troponin T NT-Pro-B Natriuret Pep Total Protein Albumin Triglycerides TSH Arterial Blood Glucose Arterial Blood Ionized Calcium Urine pH Urine WBC (Auto) Urine Creatinine 10/24/20 10/24/20 10/24/20 05:41 12:09 18:09 WBC RBC Hgb Hct RDW Lymph % (Auto) Frio % (Auto) Eos % (Auto) Lymph # (Auto) Frio # (Auto) Eos # (Auto) Seg Neutrophils % Lymphocytes % (Manual) Monocytes % (Manual) Seg Neutrophils # Seg Neutrophils # Man Lymphocytes # (Manual) Monocytes # (Manual) D-Dimer Heparin Anti-Xa Level ABG pH POC ABG pCO2 POC ABG pO2 ABG pO2 ABG HCO3 ABG O2 Saturation ABG Base Excess ABG Hemoglobin ABG Oxyhemoglobin ABG Sodium ABG Potassium ABG Chloride ABG Glucose VBG pH Oxyhemoglobin Carboxyhemoglobin Sodium Potassium Chloride Carbon Dioxide BUN Creatinine Glucose POC Glucose 156 H 154 H 132 H Lactic Acid Calcium Phosphorus Magnesium Total Bilirubin AST ALT Ammonia Lactate Dehydrogenase Total Creatine Kinase CK-MB (CK-2) Troponin T NT-Pro-B Natriuret Pep Total Protein Albumin Triglycerides TSH Arterial Blood Glucose Arterial Blood Ionized Calcium Urine pH Urine WBC (Auto) Urine Creatinine 10/24/20 10/25/20 10/25/20 23:39 05:29 08:55 WBC RBC Hgb Hct RDW Lymph % (Auto) Frio % (Auto) Eos % (Auto) Lymph # (Auto) Frio # (Auto) Eos # (Auto) Seg Neutrophils % Lymphocytes % (Manual) Monocytes % (Manual) Seg Neutrophils # Seg Neutrophils # Man Lymphocytes # (Manual) Monocytes # (Manual) D-Dimer Heparin Anti-Xa Level ABG pH POC ABG pCO2 POC ABG pO2 ABG pO2 ABG HCO3 ABG O2 Saturation ABG Base Excess ABG Hemoglobin ABG Oxyhemoglobin ABG Sodium ABG Potassium ABG Chloride ABG Glucose VBG pH Oxyhemoglobin Carboxyhemoglobin Sodium 150 H Potassium Chloride 108.3 H Carbon Dioxide 32 H BUN 57 H Creatinine 1.5 H Glucose 142 H POC Glucose 131 H 142 H Lactic Acid Calcium Phosphorus Magnesium Total Bilirubin AST ALT Ammonia Lactate Dehydrogenase Total Creatine Kinase CK-MB (CK-2) Troponin T NT-Pro-B Natriuret Pep Total Protein Albumin Triglycerides TSH Arterial Blood Glucose Arterial Blood Ionized Calcium Urine pH Urine WBC (Auto) Urine Creatinine 10/25/20 10/25/20 10/25/20 08:55 11:08 18:10 WBC 14.3 H RBC 3.57 L Hgb 10.3 L Hct 31.6 L RDW Lymph % (Auto) Frio % (Auto) Eos % (Auto) Lymph # (Auto) Frio # (Auto) Eos # (Auto) Seg Neutrophils % Lymphocytes % (Manual) Monocytes % (Manual) Seg Neutrophils # Seg Neutrophils # Man Lymphocytes # (Manual) Monocytes # (Manual) D-Dimer Heparin Anti-Xa Level ABG pH POC ABG pCO2 52.3 H POC ABG pO2 ABG pO2 ABG HCO3 ABG O2 Saturation ABG Base Excess ABG Hemoglobin 11.2 L ABG Oxyhemoglobin ABG Sodium ABG Potassium ABG Chloride 108.0 H ABG Glucose 167 H VBG pH Oxyhemoglobin Carboxyhemoglobin Sodium Potassium Chloride Carbon Dioxide BUN Creatinine Glucose POC Glucose 157 H Lactic Acid Calcium Phosphorus Magnesium Total Bilirubin AST ALT Ammonia Lactate Dehydrogenase Total Creatine Kinase CK-MB (CK-2) Troponin T NT-Pro-B Natriuret Pep Total Protein Albumin Triglycerides TSH Arterial Blood Glucose 167 H Arterial Blood Ionized Calcium Urine pH Urine WBC (Auto) Urine Creatinine 10/25/20 10/26/20 10/26/20 18:20 00:20 06:08 WBC RBC Hgb Hct RDW Lymph % (Auto) Frio % (Auto) Eos % (Auto) Lymph # (Auto) Frio # (Auto) Eos # (Auto) Seg Neutrophils % Lymphocytes % (Manual) Monocytes % (Manual) Seg Neutrophils # Seg Neutrophils # Man Lymphocytes # (Manual) Monocytes # (Manual) D-Dimer Heparin Anti-Xa Level ABG pH POC ABG pCO2 POC ABG pO2 ABG pO2 ABG HCO3 ABG O2 Saturation ABG Base Excess ABG Hemoglobin ABG Oxyhemoglobin ABG Sodium ABG Potassium ABG Chloride ABG Glucose VBG pH Oxyhemoglobin Carboxyhemoglobin Sodium Potassium Chloride Carbon Dioxide BUN Creatinine Glucose POC Glucose 127 H 108 H 119 H Lactic Acid Calcium Phosphorus Magnesium Total Bilirubin AST ALT Ammonia Lactate Dehydrogenase Total Creatine Kinase CK-MB (CK-2) Troponin T NT-Pro-B Natriuret Pep Total Protein Albumin Triglycerides TSH Arterial Blood Glucose Arterial Blood Ionized Calcium Urine pH Urine WBC (Auto) Urine Creatinine 10/26/20 10/26/20 10/26/20 07:38 07:38 11:28 WBC 13.5 H RBC 3.37 L Hgb 9.8 L Hct 30.0 L RDW Lymph % (Auto) Frio % (Auto) Eos % (Auto) Lymph # (Auto) Frio # (Auto) Eos # (Auto) Seg Neutrophils % Lymphocytes % (Manual) Monocytes % (Manual) Seg Neutrophils # Seg Neutrophils # Man Lymphocytes # (Manual) Monocytes # (Manual) D-Dimer Heparin Anti-Xa Level ABG pH POC ABG pCO2 POC ABG pO2 ABG pO2 ABG HCO3 ABG O2 Saturation ABG Base Excess ABG Hemoglobin ABG Oxyhemoglobin ABG Sodium ABG Potassium ABG Chloride ABG Glucose VBG pH Oxyhemoglobin Carboxyhemoglobin Sodium 149 H Potassium Chloride 107.6 H Carbon Dioxide 34 H BUN 49 H Creatinine 1.4 H Glucose 137 H POC Glucose 148 H Lactic Acid Calcium Phosphorus Magnesium Total Bilirubin AST ALT Ammonia Lactate Dehydrogenase Total Creatine Kinase CK-MB (CK-2) Troponin T NT-Pro-B Natriuret Pep Total Protein Albumin Triglycerides TSH Arterial Blood Glucose Arterial Blood Ionized Calcium Urine pH Urine WBC (Auto) Urine Creatinine 10/26/20 10/26/20 10/27/20 18:17 23:37 05:08 WBC RBC Hgb Hct RDW Lymph % (Auto) Frio % (Auto) Eos % (Auto) Lymph # (Auto) Frio # (Auto) Eos # (Auto) Seg Neutrophils % Lymphocytes % (Manual) Monocytes % (Manual) Seg Neutrophils # Seg Neutrophils # Man Lymphocytes # (Manual) Monocytes # (Manual) D-Dimer Heparin Anti-Xa Level ABG pH POC ABG pCO2 POC ABG pO2 ABG pO2 ABG HCO3 ABG O2 Saturation ABG Base Excess ABG Hemoglobin ABG Oxyhemoglobin ABG Sodium ABG Potassium ABG Chloride ABG Glucose VBG pH Oxyhemoglobin Carboxyhemoglobin Sodium Potassium Chloride Carbon Dioxide BUN Creatinine Glucose POC Glucose 121 H 152 H 120 H Lactic Acid Calcium Phosphorus Magnesium Total Bilirubin AST ALT Ammonia Lactate Dehydrogenase Total Creatine Kinase CK-MB (CK-2) Troponin T NT-Pro-B Natriuret Pep Total Protein Albumin Triglycerides TSH Arterial Blood Glucose Arterial Blood Ionized Calcium Urine pH Urine WBC (Auto) Urine Creatinine 10/27/20 10/27/20 10/27/20 07:30 07:30 11:59 WBC RBC 3.46 L Hgb 10.2 L Hct 30.9 L RDW Lymph % (Auto) Frio % (Auto) Eos % (Auto) Lymph # (Auto) Frio # (Auto) Eos # (Auto) Seg Neutrophils % Lymphocytes % (Manual) Monocytes % (Manual) Seg Neutrophils # Seg Neutrophils # Man Lymphocytes # (Manual) Monocytes # (Manual) D-Dimer Heparin Anti-Xa Level ABG pH POC ABG pCO2 POC ABG pO2 ABG pO2 ABG HCO3 ABG O2 Saturation ABG Base Excess ABG Hemoglobin ABG Oxyhemoglobin ABG Sodium ABG Potassium ABG Chloride ABG Glucose VBG pH Oxyhemoglobin Carboxyhemoglobin Sodium 146 H Potassium Chloride Carbon Dioxide 34 H BUN 45 H Creatinine Glucose 131 H POC Glucose 143 H Lactic Acid Calcium Phosphorus Magnesium Total Bilirubin AST ALT Ammonia Lactate Dehydrogenase Total Creatine Kinase CK-MB (CK-2) Troponin T NT-Pro-B Natriuret Pep Total Protein Albumin Triglycerides TSH Arterial Blood Glucose Arterial Blood Ionized Calcium Urine pH Urine WBC (Auto) Urine Creatinine 10/27/20 10/27/20 10/28/20 18:52 23:03 07:00 WBC RBC Hgb Hct RDW Lymph % (Auto) Frio % (Auto) Eos % (Auto) Lymph # (Auto) Frio # (Auto) Eos # (Auto) Seg Neutrophils % Lymphocytes % (Manual) Monocytes % (Manual) Seg Neutrophils # Seg Neutrophils # Man Lymphocytes # (Manual) Monocytes # (Manual) D-Dimer Heparin Anti-Xa Level ABG pH POC ABG pCO2 POC ABG pO2 ABG pO2 ABG HCO3 ABG O2 Saturation ABG Base Excess ABG Hemoglobin ABG Oxyhemoglobin ABG Sodium ABG Potassium ABG Chloride ABG Glucose VBG pH Oxyhemoglobin Carboxyhemoglobin Sodium 147 H Potassium Chloride Carbon Dioxide 35 H BUN 39 H Creatinine Glucose 133 H POC Glucose 119 H 158 H Lactic Acid Calcium Phosphorus Magnesium Total Bilirubin AST ALT Ammonia Lactate Dehydrogenase Total Creatine Kinase CK-MB (CK-2) Troponin T NT-Pro-B Natriuret Pep Total Protein Albumin Triglycerides TSH Arterial Blood Glucose Arterial Blood Ionized Calcium Urine pH Urine WBC (Auto) Urine Creatinine 10/28/20 10/28/20 10/28/20 09:00 11:47 17:15 WBC 12.5 H RBC 3.58 L Hgb 10.5 L Hct 32.1 L RDW Lymph % (Auto) Frio % (Auto) Eos % (Auto) Lymph # (Auto) Frio # (Auto) Eos # (Auto) Seg Neutrophils % Lymphocytes % (Manual) Monocytes % (Manual) Seg Neutrophils # Seg Neutrophils # Man Lymphocytes # (Manual) Monocytes # (Manual) D-Dimer Heparin Anti-Xa Level ABG pH POC ABG pCO2 POC ABG pO2 ABG pO2 ABG HCO3 ABG O2 Saturation ABG Base Excess ABG Hemoglobin ABG Oxyhemoglobin ABG Sodium ABG Potassium ABG Chloride ABG Glucose VBG pH Oxyhemoglobin Carboxyhemoglobin Sodium Potassium Chloride Carbon Dioxide BUN Creatinine Glucose POC Glucose 129 H 109 H Lactic Acid Calcium Phosphorus Magnesium Total Bilirubin AST ALT Ammonia Lactate Dehydrogenase Total Creatine Kinase CK-MB (CK-2) Troponin T NT-Pro-B Natriuret Pep Total Protein Albumin Triglycerides TSH Arterial Blood Glucose Arterial Blood Ionized Calcium Urine pH Urine WBC (Auto) Urine Creatinine 10/28/20 10/29/20 10/29/20 23:31 04:23 04:23 WBC 13.6 H RBC 3.47 L Hgb 10.5 L Hct 30.7 L RDW 15.4 H Lymph % (Auto) Frio % (Auto) Eos % (Auto) Lymph # (Auto) Frio # (Auto) Eos # (Auto) Seg Neutrophils % Lymphocytes % (Manual) Monocytes % (Manual) Seg Neutrophils # Seg Neutrophils # Man Lymphocytes # (Manual) Monocytes # (Manual) D-Dimer Heparin Anti-Xa Level ABG pH POC ABG pCO2 POC ABG pO2 ABG pO2 ABG HCO3 ABG O2 Saturation ABG Base Excess ABG Hemoglobin ABG Oxyhemoglobin ABG Sodium ABG Potassium ABG Chloride ABG Glucose VBG pH Oxyhemoglobin Carboxyhemoglobin Sodium Potassium Chloride Carbon Dioxide 35 H BUN 34 H Creatinine Glucose 107 H POC Glucose 138 H Lactic Acid Calcium Phosphorus Magnesium Total Bilirubin AST ALT Ammonia Lactate Dehydrogenase Total Creatine Kinase CK-MB (CK-2) Troponin T NT-Pro-B Natriuret Pep Total Protein Albumin Triglycerides TSH Arterial Blood Glucose Arterial Blood Ionized Calcium Urine pH Urine WBC (Auto) Urine Creatinine 10/29/20 10/29/20 10/29/20 05:21 11:49 23:19 WBC RBC Hgb Hct RDW Lymph % (Auto) Frio % (Auto) Eos % (Auto) Lymph # (Auto) Frio # (Auto) Eos # (Auto) Seg Neutrophils % Lymphocytes % (Manual) Monocytes % (Manual) Seg Neutrophils # Seg Neutrophils # Man Lymphocytes # (Manual) Monocytes # (Manual) D-Dimer Heparin Anti-Xa Level ABG pH POC ABG pCO2 POC ABG pO2 ABG pO2 ABG HCO3 ABG O2 Saturation ABG Base Excess ABG Hemoglobin ABG Oxyhemoglobin ABG Sodium ABG Potassium ABG Chloride ABG Glucose VBG pH Oxyhemoglobin Carboxyhemoglobin Sodium Potassium Chloride Carbon Dioxide BUN Creatinine Glucose POC Glucose 115 H 124 H 129 H Lactic Acid Calcium Phosphorus Magnesium Total Bilirubin AST ALT Ammonia Lactate Dehydrogenase Total Creatine Kinase CK-MB (CK-2) Troponin T NT-Pro-B Natriuret Pep Total Protein Albumin Triglycerides TSH Arterial Blood Glucose Arterial Blood Ionized Calcium Urine pH Urine WBC (Auto) Urine Creatinine 10/30/20 10/30/20 10/30/20 04:59 05:10 11:52 WBC RBC Hgb Hct RDW Lymph % (Auto) Frio % (Auto) Eos % (Auto) Lymph # (Auto) Frio # (Auto) Eos # (Auto) Seg Neutrophils % Lymphocytes % (Manual) Monocytes % (Manual) Seg Neutrophils # Seg Neutrophils # Man Lymphocytes # (Manual) Monocytes # (Manual) D-Dimer Heparin Anti-Xa Level ABG pH POC ABG pCO2 POC ABG pO2 ABG pO2 ABG HCO3 ABG O2 Saturation ABG Base Excess ABG Hemoglobin ABG Oxyhemoglobin ABG Sodium ABG Potassium ABG Chloride ABG Glucose VBG pH Oxyhemoglobin Carboxyhemoglobin Sodium Potassium Chloride Carbon Dioxide 34 H BUN 33 H Creatinine Glucose 128 H POC Glucose 126 H 132 H Lactic Acid Calcium Phosphorus Magnesium Total Bilirubin AST ALT Ammonia Lactate Dehydrogenase Total Creatine Kinase CK-MB (CK-2) Troponin T NT-Pro-B Natriuret Pep Total Protein Albumin Triglycerides TSH Arterial Blood Glucose Arterial Blood Ionized Calcium Urine pH Urine WBC (Auto) Urine Creatinine 10/30/20 10/30/20 10/31/20 16:59 23:19 04:00 WBC RBC Hgb Hct RDW Lymph % (Auto) Frio % (Auto) Eos % (Auto) Lymph # (Auto) Frio # (Auto) Eos # (Auto) Seg Neutrophils % Lymphocytes % (Manual) Monocytes % (Manual) Seg Neutrophils # Seg Neutrophils # Man Lymphocytes # (Manual) Monocytes # (Manual) D-Dimer Heparin Anti-Xa Level ABG pH POC ABG pCO2 POC ABG pO2 ABG pO2 ABG HCO3 ABG O2 Saturation ABG Base Excess ABG Hemoglobin ABG Oxyhemoglobin ABG Sodium ABG Potassium ABG Chloride ABG Glucose VBG pH Oxyhemoglobin Carboxyhemoglobin Sodium Potassium Chloride Carbon Dioxide 38 H BUN 32 H Creatinine Glucose 121 H POC Glucose 118 H 138 H Lactic Acid Calcium Phosphorus Magnesium Total Bilirubin AST ALT Ammonia Lactate Dehydrogenase Total Creatine Kinase CK-MB (CK-2) Troponin T NT-Pro-B Natriuret Pep Total Protein Albumin Triglycerides TSH Arterial Blood Glucose Arterial Blood Ionized Calcium Urine pH Urine WBC (Auto) Urine Creatinine 10/31/20 10/31/20 10/31/20 05:13 11:09 16:17 WBC RBC Hgb Hct RDW Lymph % (Auto) Frio % (Auto) Eos % (Auto) Lymph # (Auto) Frio # (Auto) Eos # (Auto) Seg Neutrophils % Lymphocytes % (Manual) Monocytes % (Manual) Seg Neutrophils # Seg Neutrophils # Man Lymphocytes # (Manual) Monocytes # (Manual) D-Dimer Heparin Anti-Xa Level ABG pH POC ABG pCO2 71.1 H POC ABG pO2 67.4 L ABG pO2 ABG HCO3 ABG O2 Saturation ABG Base Excess ABG Hemoglobin 10.9 L ABG Oxyhemoglobin 90.7 L ABG Sodium ABG Potassium ABG Chloride ABG Glucose 134 H VBG pH Oxyhemoglobin Carboxyhemoglobin Sodium Potassium Chloride Carbon Dioxide BUN Creatinine Glucose POC Glucose 110 H 138 H Lactic Acid Calcium Phosphorus Magnesium Total Bilirubin AST ALT Ammonia Lactate Dehydrogenase Total Creatine Kinase CK-MB (CK-2) Troponin T NT-Pro-B Natriuret Pep Total Protein Albumin Triglycerides TSH Arterial Blood Glucose 134 H Arterial Blood Ionized Calcium Urine pH Urine WBC (Auto) Urine Creatinine 10/31/20 10/31/20 11/01/20 18:16 23:56 04:09 WBC 11.3 H RBC 3.05 L Hgb 9.0 L Hct 27.3 L RDW Lymph % (Auto) Frio % (Auto) Eos % (Auto) Lymph # (Auto) Frio # (Auto) Eos # (Auto) Seg Neutrophils % Lymphocytes % (Manual) Monocytes % (Manual) Seg Neutrophils # Seg Neutrophils # Man Lymphocytes # (Manual) Monocytes # (Manual) D-Dimer Heparin Anti-Xa Level ABG pH POC ABG pCO2 POC ABG pO2 ABG pO2 ABG HCO3 ABG O2 Saturation ABG Base Excess ABG Hemoglobin ABG Oxyhemoglobin ABG Sodium ABG Potassium ABG Chloride ABG Glucose VBG pH Oxyhemoglobin Carboxyhemoglobin Sodium Potassium Chloride Carbon Dioxide BUN Creatinine Glucose POC Glucose 135 H 122 H Lactic Acid Calcium Phosphorus Magnesium Total Bilirubin AST ALT Ammonia Lactate Dehydrogenase Total Creatine Kinase CK-MB (CK-2) Troponin T NT-Pro-B Natriuret Pep Total Protein Albumin Triglycerides TSH Arterial Blood Glucose Arterial Blood Ionized Calcium Urine pH Urine WBC (Auto) Urine Creatinine 11/01/20 11/01/20 11/01/20 05:10 11:51 17:17 WBC RBC Hgb Hct RDW Lymph % (Auto) Frio % (Auto) Eos % (Auto) Lymph # (Auto) Frio # (Auto) Eos # (Auto) Seg Neutrophils % Lymphocytes % (Manual) Monocytes % (Manual) Seg Neutrophils # Seg Neutrophils # Man Lymphocytes # (Manual) Monocytes # (Manual) D-Dimer Heparin Anti-Xa Level ABG pH POC ABG pCO2 POC ABG pO2 ABG pO2 ABG HCO3 ABG O2 Saturation ABG Base Excess ABG Hemoglobin ABG Oxyhemoglobin ABG Sodium ABG Potassium ABG Chloride ABG Glucose VBG pH Oxyhemoglobin Carboxyhemoglobin Sodium Potassium Chloride Carbon Dioxide BUN Creatinine Glucose POC Glucose 123 H 123 H 120 H Lactic Acid Calcium Phosphorus Magnesium Total Bilirubin AST ALT Ammonia Lactate Dehydrogenase Total Creatine Kinase CK-MB (CK-2) Troponin T NT-Pro-B Natriuret Pep Total Protein Albumin Triglycerides TSH Arterial Blood Glucose Arterial Blood Ionized Calcium Urine pH Urine WBC (Auto) Urine Creatinine 11/02/20 11/02/20 11/02/20 03:14 05:37 05:37 WBC RBC Hgb 9.8 L Hct 29.5 L RDW Lymph % (Auto) Frio % (Auto) Eos % (Auto) Lymph # (Auto) Frio # (Auto) Eos # (Auto) Seg Neutrophils % Lymphocytes % (Manual) Monocytes % (Manual) Seg Neutrophils # Seg Neutrophils # Man Lymphocytes # (Manual) Monocytes # (Manual) D-Dimer Heparin Anti-Xa Level ABG pH POC ABG pCO2 58.9 H POC ABG pO2 79.9 L ABG pO2 ABG HCO3 ABG O2 Saturation ABG Base Excess ABG Hemoglobin 10.6 L ABG Oxyhemoglobin ABG Sodium ABG Potassium ABG Chloride ABG Glucose 110 H VBG pH Oxyhemoglobin Carboxyhemoglobin Sodium Potassium Chloride Carbon Dioxide 37 H BUN 28 H Creatinine Glucose 106 H POC Glucose Lactic Acid Calcium Phosphorus Magnesium Total Bilirubin AST ALT Ammonia Lactate Dehydrogenase Total Creatine Kinase CK-MB (CK-2) Troponin T NT-Pro-B Natriuret Pep Total Protein Albumin Triglycerides TSH Arterial Blood Glucose 110 H Arterial Blood Ionized Calcium Urine pH Urine WBC (Auto) Urine Creatinine 11/02/20 11/03/20 11/03/20 23:29 04:45 04:45 WBC 11.8 H RBC 3.07 L Hgb 9.0 L Hct 27.2 L RDW Lymph % (Auto) 11.4 L Frio % (Auto) 9.5 H Eos % (Auto) Lymph # (Auto) Frio # (Auto) 1.1 H Eos # (Auto) Seg Neutrophils % 75.9 H Lymphocytes % (Manual) Monocytes % (Manual) Seg Neutrophils # 9.0 H Seg Neutrophils # Man Lymphocytes # (Manual) Monocytes # (Manual) D-Dimer Heparin Anti-Xa Level ABG pH POC ABG pCO2 POC ABG pO2 ABG pO2 ABG HCO3 ABG O2 Saturation ABG Base Excess ABG Hemoglobin ABG Oxyhemoglobin ABG Sodium ABG Potassium ABG Chloride ABG Glucose VBG pH Oxyhemoglobin Carboxyhemoglobin Sodium 146 H Potassium Chloride Carbon Dioxide 39 H BUN 26 H Creatinine Glucose POC Glucose 129 H Lactic Acid Calcium Phosphorus Magnesium Total Bilirubin AST ALT Ammonia Lactate Dehydrogenase Total Creatine Kinase CK-MB (CK-2) Troponin T NT-Pro-B Natriuret Pep Total Protein Albumin Triglycerides TSH Arterial Blood Glucose Arterial Blood Ionized Calcium Urine pH Urine WBC (Auto) Urine Creatinine 11/03/20 11/03/20 11/03/20 05:05 11:51 17:43 WBC RBC Hgb Hct RDW Lymph % (Auto) Frio % (Auto) Eos % (Auto) Lymph # (Auto) Frio # (Auto) Eos # (Auto) Seg Neutrophils % Lymphocytes % (Manual) Monocytes % (Manual) Seg Neutrophils # Seg Neutrophils # Man Lymphocytes # (Manual) Monocytes # (Manual) D-Dimer Heparin Anti-Xa Level ABG pH 7.452 H POC ABG pCO2 55.4 H POC ABG pO2 129.1 H ABG pO2 ABG HCO3 ABG O2 Saturation ABG Base Excess ABG Hemoglobin 9.3 L ABG Oxyhemoglobin ABG Sodium ABG Potassium ABG Chloride ABG Glucose 99 H VBG pH Oxyhemoglobin Carboxyhemoglobin 1.7 H Sodium Potassium Chloride Carbon Dioxide BUN Creatinine Glucose POC Glucose 131 H 125 H Lactic Acid Calcium Phosphorus Magnesium Total Bilirubin AST ALT Ammonia Lactate Dehydrogenase Total Creatine Kinase CK-MB (CK-2) Troponin T NT-Pro-B Natriuret Pep Total Protein Albumin Triglycerides TSH Arterial Blood Glucose 99 H Arterial Blood Ionized Calcium Urine pH Urine WBC (Auto) Urine Creatinine 11/03/20 11/04/20 11/04/20 23:27 04:00 05:10 WBC RBC Hgb Hct RDW Lymph % (Auto) Frio % (Auto) Eos % (Auto) Lymph # (Auto) Frio # (Auto) Eos # (Auto) Seg Neutrophils % Lymphocytes % (Manual) Monocytes % (Manual) Seg Neutrophils # Seg Neutrophils # Man Lymphocytes # (Manual) Monocytes # (Manual) D-Dimer Heparin Anti-Xa Level ABG pH POC ABG pCO2 POC ABG pO2 ABG pO2 ABG HCO3 ABG O2 Saturation ABG Base Excess ABG Hemoglobin ABG Oxyhemoglobin ABG Sodium ABG Potassium ABG Chloride ABG Glucose VBG pH Oxyhemoglobin Carboxyhemoglobin Sodium Potassium Chloride 95.2 L Carbon Dioxide 40 H BUN 26 H Creatinine Glucose 128 H POC Glucose 148 H 126 H Lactic Acid Calcium Phosphorus Magnesium Total Bilirubin AST ALT Ammonia Lactate Dehydrogenase Total Creatine Kinase CK-MB (CK-2) Troponin T NT-Pro-B Natriuret Pep Total Protein Albumin Triglycerides TSH Arterial Blood Glucose Arterial Blood Ionized Calcium Urine pH Urine WBC (Auto) Urine Creatinine 11/04/20 11/04/20 11/04/20 11:39 18:00 21:18 WBC RBC Hgb Hct RDW Lymph % (Auto) Frio % (Auto) Eos % (Auto) Lymph # (Auto) Frio # (Auto) Eos # (Auto) Seg Neutrophils % Lymphocytes % (Manual) Monocytes % (Manual) Seg Neutrophils # Seg Neutrophils # Man Lymphocytes # (Manual) Monocytes # (Manual) D-Dimer Heparin Anti-Xa Level ABG pH 7.511 H POC ABG pCO2 49.0 H POC ABG pO2 ABG pO2 ABG HCO3 ABG O2 Saturation ABG Base Excess ABG Hemoglobin 9.5 L ABG Oxyhemoglobin ABG Sodium 135.7 L ABG Potassium ABG Chloride ABG Glucose 152 H VBG pH Oxyhemoglobin Carboxyhemoglobin Sodium Potassium Chloride Carbon Dioxide BUN Creatinine Glucose POC Glucose 142 H 130 H Lactic Acid Calcium Phosphorus Magnesium Total Bilirubin AST ALT Ammonia Lactate Dehydrogenase Total Creatine Kinase CK-MB (CK-2) Troponin T NT-Pro-B Natriuret Pep Total Protein Albumin Triglycerides TSH Arterial Blood Glucose 152 H Arterial Blood Ionized Calcium 4.3 L Urine pH Urine WBC (Auto) Urine Creatinine 11/04/20 11/05/20 11/05/20 23:19 03:30 03:30 WBC RBC 3.02 L Hgb 9.1 L Hct 26.7 L RDW Lymph % (Auto) Frio % (Auto) Eos % (Auto) Lymph # (Auto) Frio # (Auto) Eos # (Auto) Seg Neutrophils % Lymphocytes % (Manual) Monocytes % (Manual) Seg Neutrophils # Seg Neutrophils # Man Lymphocytes # (Manual) Monocytes # (Manual) D-Dimer Heparin Anti-Xa Level ABG pH POC ABG pCO2 POC ABG pO2 ABG pO2 ABG HCO3 ABG O2 Saturation ABG Base Excess ABG Hemoglobin ABG Oxyhemoglobin ABG Sodium ABG Potassium ABG Chloride ABG Glucose VBG pH Oxyhemoglobin Carboxyhemoglobin Sodium Potassium Chloride 93.6 L Carbon Dioxide 40 H BUN 24 H Creatinine Glucose 121 H POC Glucose 126 H Lactic Acid Calcium Phosphorus Magnesium Total Bilirubin AST ALT Ammonia Lactate Dehydrogenase Total Creatine Kinase CK-MB (CK-2) Troponin T NT-Pro-B Natriuret Pep Total Protein Albumin Triglycerides TSH Arterial Blood Glucose Arterial Blood Ionized Calcium Urine pH Urine WBC (Auto) Urine Creatinine 11/05/20 11/05/20 11/05/20 05:24 11:37 17:37 WBC RBC Hgb Hct RDW Lymph % (Auto) Frio % (Auto) Eos % (Auto) Lymph # (Auto) Frio # (Auto) Eos # (Auto) Seg Neutrophils % Lymphocytes % (Manual) Monocytes % (Manual) Seg Neutrophils # Seg Neutrophils # Man Lymphocytes # (Manual) Monocytes # (Manual) D-Dimer Heparin Anti-Xa Level ABG pH POC ABG pCO2 POC ABG pO2 ABG pO2 ABG HCO3 ABG O2 Saturation ABG Base Excess ABG Hemoglobin ABG Oxyhemoglobin ABG Sodium ABG Potassium ABG Chloride ABG Glucose VBG pH Oxyhemoglobin Carboxyhemoglobin Sodium Potassium Chloride Carbon Dioxide BUN Creatinine Glucose POC Glucose 124 H 125 H 153 H Lactic Acid Calcium Phosphorus Magnesium Total Bilirubin AST ALT Ammonia Lactate Dehydrogenase Total Creatine Kinase CK-MB (CK-2) Troponin T NT-Pro-B Natriuret Pep Total Protein Albumin Triglycerides TSH Arterial Blood Glucose Arterial Blood Ionized Calcium Urine pH Urine WBC (Auto) Urine Creatinine 11/05/20 11/06/20 11/06/20 23:20 05:24 12:17 WBC RBC Hgb Hct RDW Lymph % (Auto) Frio % (Auto) Eos % (Auto) Lymph # (Auto) Frio # (Auto) Eos # (Auto) Seg Neutrophils % Lymphocytes % (Manual) Monocytes % (Manual) Seg Neutrophils # Seg Neutrophils # Man Lymphocytes # (Manual) Monocytes # (Manual) D-Dimer Heparin Anti-Xa Level ABG pH POC ABG pCO2 POC ABG pO2 ABG pO2 ABG HCO3 ABG O2 Saturation ABG Base Excess ABG Hemoglobin ABG Oxyhemoglobin ABG Sodium ABG Potassium ABG Chloride ABG Glucose VBG pH Oxyhemoglobin Carboxyhemoglobin Sodium Potassium Chloride Carbon Dioxide BUN Creatinine Glucose POC Glucose 133 H 143 H 139 H Lactic Acid Calcium Phosphorus Magnesium Total Bilirubin AST ALT Ammonia Lactate Dehydrogenase Total Creatine Kinase CK-MB (CK-2) Troponin T NT-Pro-B Natriuret Pep Total Protein Albumin Triglycerides TSH Arterial Blood Glucose Arterial Blood Ionized Calcium Urine pH Urine WBC (Auto) Urine Creatinine 11/06/20 11/06/20 11/07/20 17:38 23:26 04:50 WBC RBC 3.24 L Hgb 9.6 L Hct 29.0 L RDW Lymph % (Auto) Frio % (Auto) 10.3 H Eos % (Auto) 6.9 H Lymph # (Auto) Frio # (Auto) Eos # (Auto) 0.5 H Seg Neutrophils % Lymphocytes % (Manual) Monocytes % (Manual) Seg Neutrophils # Seg Neutrophils # Man Lymphocytes # (Manual) Monocytes # (Manual) D-Dimer Heparin Anti-Xa Level ABG pH POC ABG pCO2 POC ABG pO2 ABG pO2 ABG HCO3 ABG O2 Saturation ABG Base Excess ABG Hemoglobin ABG Oxyhemoglobin ABG Sodium ABG Potassium ABG Chloride ABG Glucose VBG pH Oxyhemoglobin Carboxyhemoglobin Sodium Potassium Chloride Carbon Dioxide BUN Creatinine Glucose POC Glucose 139 H 117 H Lactic Acid Calcium Phosphorus Magnesium Total Bilirubin AST ALT Ammonia Lactate Dehydrogenase Total Creatine Kinase CK-MB (CK-2) Troponin T NT-Pro-B Natriuret Pep Total Protein Albumin Triglycerides TSH Arterial Blood Glucose Arterial Blood Ionized Calcium Urine pH Urine WBC (Auto) Urine Creatinine 11/07/20 11/07/20 11/07/20 04:50 05:10 12:22 WBC RBC Hgb Hct RDW Lymph % (Auto) Frio % (Auto) Eos % (Auto) Lymph # (Auto) Frio # (Auto) Eos # (Auto) Seg Neutrophils % Lymphocytes % (Manual) Monocytes % (Manual) Seg Neutrophils # Seg Neutrophils # Man Lymphocytes # (Manual) Monocytes # (Manual) D-Dimer Heparin Anti-Xa Level ABG pH POC ABG pCO2 POC ABG pO2 ABG pO2 ABG HCO3 ABG O2 Saturation ABG Base Excess ABG Hemoglobin ABG Oxyhemoglobin ABG Sodium ABG Potassium ABG Chloride ABG Glucose VBG pH Oxyhemoglobin Carboxyhemoglobin Sodium Potassium Chloride 97.2 L Carbon Dioxide 36 H BUN 25 H Creatinine Glucose 130 H POC Glucose 115 H 118 H Lactic Acid Calcium Phosphorus Magnesium Total Bilirubin AST ALT Ammonia Lactate Dehydrogenase Total Creatine Kinase CK-MB (CK-2) Troponin T NT-Pro-B Natriuret Pep Total Protein Albumin Triglycerides TSH Arterial Blood Glucose Arterial Blood Ionized Calcium Urine pH Urine WBC (Auto) Urine Creatinine 11/07/20 11/07/20 11/08/20 17:46 23:53 07:16 WBC RBC Hgb Hct RDW Lymph % (Auto) Frio % (Auto) Eos % (Auto) Lymph # (Auto) Frio # (Auto) Eos # (Auto) Seg Neutrophils % Lymphocytes % (Manual) Monocytes % (Manual) Seg Neutrophils # Seg Neutrophils # Man Lymphocytes # (Manual) Monocytes # (Manual) D-Dimer Heparin Anti-Xa Level ABG pH POC ABG pCO2 POC ABG pO2 ABG pO2 ABG HCO3 ABG O2 Saturation ABG Base Excess ABG Hemoglobin ABG Oxyhemoglobin ABG Sodium ABG Potassium ABG Chloride ABG Glucose VBG pH Oxyhemoglobin Carboxyhemoglobin Sodium Potassium Chloride Carbon Dioxide BUN Creatinine Glucose POC Glucose 150 H 141 H 134 H Lactic Acid Calcium Phosphorus Magnesium Total Bilirubin AST ALT Ammonia Lactate Dehydrogenase Total Creatine Kinase CK-MB (CK-2) Troponin T NT-Pro-B Natriuret Pep Total Protein Albumin Triglycerides TSH Arterial Blood Glucose Arterial Blood Ionized Calcium Urine pH Urine WBC (Auto) Urine Creatinine 11/08/20 11/08/20 11/08/20 11:35 17:59 23:50 WBC RBC Hgb Hct RDW Lymph % (Auto) Frio % (Auto) Eos % (Auto) Lymph # (Auto) Frio # (Auto) Eos # (Auto) Seg Neutrophils % Lymphocytes % (Manual) Monocytes % (Manual) Seg Neutrophils # Seg Neutrophils # Man Lymphocytes # (Manual) Monocytes # (Manual) D-Dimer Heparin Anti-Xa Level ABG pH POC ABG pCO2 POC ABG pO2 ABG pO2 ABG HCO3 ABG O2 Saturation ABG Base Excess ABG Hemoglobin ABG Oxyhemoglobin ABG Sodium ABG Potassium ABG Chloride ABG Glucose VBG pH Oxyhemoglobin Carboxyhemoglobin Sodium Potassium Chloride Carbon Dioxide BUN Creatinine Glucose POC Glucose 148 H 118 H 131 H Lactic Acid Calcium Phosphorus Magnesium Total Bilirubin AST ALT Ammonia Lactate Dehydrogenase Total Creatine Kinase CK-MB (CK-2) Troponin T NT-Pro-B Natriuret Pep Total Protein Albumin Triglycerides TSH Arterial Blood Glucose Arterial Blood Ionized Calcium Urine pH Urine WBC (Auto) Urine Creatinine 11/09/20 12:07 WBC RBC Hgb Hct RDW Lymph % (Auto) Frio % (Auto) Eos % (Auto) Lymph # (Auto) Frio # (Auto) Eos # (Auto) Seg Neutrophils % Lymphocytes % (Manual) Monocytes % (Manual) Seg Neutrophils # Seg Neutrophils # Man Lymphocytes # (Manual) Monocytes # (Manual) D-Dimer Heparin Anti-Xa Level ABG pH POC ABG pCO2 POC ABG pO2 ABG pO2 ABG HCO3 ABG O2 Saturation ABG Base Excess ABG Hemoglobin ABG Oxyhemoglobin ABG Sodium ABG Potassium ABG Chloride ABG Glucose VBG pH Oxyhemoglobin Carboxyhemoglobin Sodium Potassium Chloride Carbon Dioxide BUN Creatinine Glucose POC Glucose 133 H Lactic Acid Calcium Phosphorus Magnesium Total Bilirubin AST ALT Ammonia Lactate Dehydrogenase Total Creatine Kinase CK-MB (CK-2) Troponin T NT-Pro-B Natriuret Pep Total Protein Albumin Triglycerides TSH Arterial Blood Glucose Arterial Blood Ionized Calcium Urine pH Urine WBC (Auto) Urine Creatinine Allied health notes reviewed: nursing
[2020-11-09] MEDS ORDERED: IPRATROPIUM/ALBUTEROL SULFATE 3 ML AMPUL.NEB IH ONE (15:11)
[2020-11-09] MEDS: fentaNYL 25 MCG/HR PATCH 72HR TD SCH (17:45)
[2020-11-09] MEDS: QUEtiapine 200 MG TAB PO SCH (23:32)
[2020-11-10] MEDS: hydrALAZINE 25 MG TAB PO SCH (01:12)
[2020-11-10] MEDS: hydrALAZINE 100 MG TAB PO SCH ×2 (05:48→13:07)
[2020-11-10] MEDS: GLYCOPYRROLATE 1 MG TAB PO SCH ×2 (05:48→13:07)
[2020-11-10] MEDS: ACETAMINOPHEN 325 MG TAB PO PRN (05:48)
[2020-11-10] MEDS: LORazepam 2 MG/ML VIAL IV PRN ×3 (05:58→17:44)
[2020-11-10] MEDS: amLODIPine 10 MG TAB PO SCH (10:19)
[2020-11-10] MEDS: POLYETHYLENE GLYCOL 3350 17 GM POWDER PO SCH (10:19)
[2020-11-10] MEDS: HEPARIN 5,000 UNIT/1 ML VIAL SUB-Q SCH (10:19)
[2020-11-10] MEDS: QUEtiapine 25 MG TAB PO SCH (10:19)
[2020-11-10] MEDS: QUEtiapine 100 MG TAB PO SCH (10:19)
[2020-11-10] MEDS: DOCUSATE SODIUM 100 MG/10 ML ORAL LIQD PO SCH (10:19)
[2020-11-10] MEDS: LANSOPRAZOLE 30 MG SOLUTAB FEEDTUBE SCH (10:19)
[2020-11-10] MEDS: levETIRAcetam 500 MG/5 ML ORAL LIQD PO SCH (10:19)
[2020-11-10] MEDS: METOPROLOL TARTRATE 50 MG TAB PO SCH ×3 (10:19→20:29)
[2020-11-10] MEDS: SCOPOLAMINE TRANSDERMAL PATCH 72 HR TD SCH (10:21)
--- NOTE | 2020-11-10 10:49 | Progress Note ---
Assessment and Plan Assessment and plan: This is a 55-year-old male with hypertension, asthma, obesity who was admitted on 10/10 after cardiac arrest x2 (supposedly after COVID-19 vaccine injection), sepsis, right-sided pneumonia, NSTEMI type II, acute heart failure, acute hypoxic respiratory failure, acute kidney injury and anoxic brain injury. Sepsis s/p multiple Cardiac Arrests s/p right-sided pneumonia MRSA in tracheal aspirate NSTEMI type II Acute heart failure Afib/Aflutter Acute hypoxic respiratory failure Acute kidney injury (improved) Transaminitis HTN Obesity -Infectious disease, CCM, GI, nephrology, cardiology, surgery consulted, appreciate recommendations -Antibiotic therapy -10/18 recultured (blood/sputum/nasal discharge and urinalysis), tracheal aspirate with MRSA -S/p Linezolid -Continue antihypertensive regimen (changed to p.o.), titrate as needed -s/p IV amiodarone for A. fib/a flutter now on p.o. beta-shital -Trend CBC, BMP, LFT -trach/peg 10/27 -Resume SBT as tolerated and trach collar trials -Mucomyst for 5 days -Avoid nephrotoxic medications, strict intake and output, renal ultrasound shows no obstruction -10/10 echocardiogram shows left internal systolic function normal, moderate concentric left ventricle hypertrophy, mild to side diastolic dysfunction, LVEF 55 to 60% with no pericardial effusion -Bilateral Doppler ultrasound negative for DVT/SVT which shows bilateral popliteal cysts -MRI Brain shows restricted diffusion and increased T2 signal cerebral cortex which can be seen in the setting of anoxic brain injury and/ or status epilepticus. -Repeat EEG shows significant generalized slowing compatible with to moderate severe diffuse neuropathy recently compatible with anoxic/ischemic encephalop athy -s/p D5W at 50ml/hr x 1 liter, currently on tube feedings and tolerating 11/09/2020. No new issues. Continue trach care, secretion control and airway management. Continue tube feedings which the patient is tolerating. Gastrostomy tube care. History Interval history: No new issues overnight. Hospitalist Physical - Constitutional Vitals: Temp Pulse Resp BP Pulse Ox 98.2 F 73 20 119/74 100 11/10/20 08:00 11/10/20 10:19 11/10/20 10:00 11/10/20 10:19 11/10/20 10:00 General appearance: Present: no acute distress, other (Remains intubated ) - EENT Eyes: Present: PERRL, EOM intact ENT: hearing intact, clear oral mucosa, dentition normal - Neck Neck: Present: supple, normal ROM - Respiratory Respiratory effort: normal Respiratory: bilateral: CTA - Cardiovascular Rhythm: regular Heart Sounds: Present: S1 & S2. Absent: gallop, rub - Extremities Extremities: no ischemia, No edema, Full ROM - Abdominal General gastrointestinal: soft, non-tender, non-distended, normal bowel sounds - Integumentary Integumentary: Present: clear, warm, dry - Neurologic Neurologic: CNII-XII intact, moves all extremities HEART Score - HEART Score EKG: Non-specific Age: 45-65 Troponin: Troponin T 0.125 ng/mL (0.00-0.029) H* D 10/12/20 04:00 Troponin: 1-3x normal limit - Critical Actions Critical Actions: 4-6 pts:12-16.6% risk of adverse cardiac event. Should be admitted Results - Labs CBC & Chem 7: 11/07/20 04:50 11/07/20 04:50 Labs: Laboratory Last Values WBC 7.6 K/mm3 (4.5-11.0) 11/07/20 04:50 RBC 3.24 M/mm3 (3.65-5.03) L 11/07/20 04:50 Hgb 9.6 gm/dl (11.8-15.2) L 11/07/20 04:50 Hct 29.0 % (35.5-45.6) L 11/07/20 04:50 MCV 90 fl (84-94) 11/07/20 04:50 MCH 30 pg (28-32) 11/07/20 04:50 MCHC 33 % (32-34) 11/07/20 04:50 RDW 15.2 % (13.2-15.2) 11/07/20 04:50 Plt Count 236 K/mm3 (140-440) 11/07/20 04:50 Lymph % (Auto) 19.1 % (13.4-35.0) 11/07/20 04:50 [place] % (Auto) 10.3 % (0.0-7.3) H 11/07/20 04:50 Eos % (Auto) 6.9 % (0.0-4.3) H 11/07/20 04:50 Baso % (Auto) 0.6 % (0.0-1.8) 11/07/20 04:50 Lymph # (Auto) 1.5 K/mm3 (1.2-5.4) 11/07/20 04:50 [place] # (Auto) 0.8 K/mm3 (0.0-0.8) 11/07/20 04:50 Eos # (Auto) 0.5 K/mm3 (0.0-0.4) H 11/07/20 04:50 Baso # (Auto) 0.0 K/mm3 (0.0-0.1) 11/07/20 04:50 Add Manual Diff Complete 10/10/20 18:18 Total Counted 100 10/10/20 18:18 Seg Neutrophils % 63.1 % (40.0-70.0) 11/07/20 04:50 Seg Neuts % (Manual) 60.0 % (40.0-70.0) 10/10/20 18:18 Band Neutrophils % 27.0 % 10/10/20 18:18 Lymphocytes % (Manual) 4.0 % (13.4-35.0) L 10/10/20 18:18 Monocytes % (Manual) 9.0 % (0.0-7.3) H 10/10/20 18:18 Eosinophils % (Manual) 4.0 % (0.0-4.3) 10/10/20 10:48 Metamyelocytes % 1.0 % 10/10/20 10:48 Nucleated RBC % Not Reportable 10/10/20 18:18 Seg Neutrophils # 4.8 K/mm3 (1.8-7.7) 11/07/20 04:50 Seg Neutrophils # Man 13.8 K/mm3 (1.8-7.7) H 10/10/20 18:18 Band Neutrophils # 6.2 K/mm3 10/10/20 18:18 Lymphocytes # (Manual) 0.9 K/mm3 (1.2-5.4) L 10/10/20 18:18 Abs React Lymphs (Man) 0.0 K/mm3 10/10/20 18:18 Monocytes # (Manual) 2.1 K/mm3 (0.0-0.8) H 10/10/20 18:18 Eosinophils # (Manual) 0.0 K/mm3 (0.0-0.4) 10/10/20 18:18 Basophils # (Manual) 0.0 K/mm3 (0.0-0.1) 10/10/20 18:18 Metamyelocytes # 0.0 K/mm3 10/10/20 18:18 Myelocytes # 0.0 K/mm3 10/10/20 18:18 Promyelocytes # 0.0 K/mm3 10/10/20 18:18 Blast Cells # 0.0 K/mm3 10/10/20 18:18 WBC Morphology Not Reportable 10/10/20 18:18 Hypersegmented Neuts Not Reportable 10/10/20 18:18 Hyposegmented Neuts Not Reportable 10/10/20 18:18 Hypogranular Neuts Not Reportable 10/10/20 18:18 Smudge Cells Not Reportable 10/10/20 18:18 Toxic Granulation Not Reportable 10/10/20 18:18 Toxic Vacuolation Not Reportable 10/10/20 18:18 Dohle Bodies Not Reportable 10/10/20 18:18 Pelger-Huet Anomaly Not Reportable 10/10/20 18:18 Dionicio Rods Not Reportable 10/10/20 18:18 Platelet Estimate Consistent w auto 10/10/20 18:18 Clumped Platelets Not Reportable 10/10/20 18:18 Plt Clumps, EDTA Not Reportable 10/10/20 18:18 Large Platelets Rare 10/10/20 18:18 Giant Platelets Rare 10/10/20 18:18 Platelet Satelliting Not Reportable 10/10/20 18:18 Plt Morphology Comment Not Reportable 10/10/20 18:18 RBC Morphology Not Reportable 10/10/20 18:18 Dimorphic RBCs Not Reportable 10/10/20 18:18 Polychromasia Not Reportable 10/10/20 18:18 Hypochromasia Not Reportable 10/10/20 18:18 Poikilocytosis Not Reportable 10/10/20 18:18 Anisocytosis Not Reportable 10/10/20 18:18 Microcytosis Not Reportable 10/10/20 18:18 Macrocytosis Not Reportable 10/10/20 18:18 Spherocytes Not Reportable 10/10/20 18:18 Pappenheimer Bodies Not Reportable 10/10/20 18:18 Sickle Cells Not Reportable 10/10/20 18:18 Target Cells Not Reportable 10/10/20 18:18 Tear Drop Cells Not Reportable 10/10/20 18:18 Ovalocytes Not Reportable 10/10/20 18:18 Helmet Cells Not Reportable 10/10/20 18:18 [place] Bodies Not Reportable 10/10/20 18:18 [place] Rings Not Reportable 10/10/20 18:18 Adelfo Cells Not Reportable 10/10/20 18:18 Bite Cells Not Reportable 10/10/20 18:18 Crenated Cell Not Reportable 10/10/20 18:18 Elliptocytes Not Reportable 10/10/20 18:18 Acanthocytes (Spur) Not Reportable 10/10/20 18:18 Rouleaux Not Reportable 10/10/20 18:18 Hemoglobin C Crystals Not Reportable 10/10/20 18:18 Schistocytes Not Reportable 10/10/20 18:18 Malaria parasites Not Reportable 10/10/20 18:18 Mauricio Bodies Not Reportable 10/10/20 18:18 Hem Pathologist Commnt No 10/10/20 18:18 PT 13.5 Sec. (12.2-14.9) 10/28/20 07:00 INR 1.05 (0.87-1.13) 10/28/20 07:00 APTT 26.9 Sec. (24.2-36.6) 10/10/20 18:18 D-Dimer 679.5 ng/mlDDU (0-234) H 10/10/20 10:48 Heparin Anti-Xa Level 0.22 U.I./ml (0.3-0.7) L 10/11/20 08:35 ABG pH 7.511 (7.320-7.450) H 11/04/20 21:18 POC ABG pCO2 49.0 mmHg (32.0-48.0) H 11/04/20 21:18 ABG pCO2 55.5 mm Hg 10/16/20 05:10 POC ABG pO2 88.5 mmHg (83-108) 11/04/20 21:18 ABG pO2 104.5 mm Hg (80.0-90.0) H 10/16/20 05:10 POC ABG HCO3 38.3 11/04/20 21:18 ABG HCO3 35.1 mmol/L (20.0-26.0) H 10/16/20 05:10 ABG O2 Saturation 96.9 (0-100) 11/04/20 21:18 ABG O2 Content 10.8 (0.0-44) 10/16/20 05:10 POC ABG Base Excess 13.8 11/04/20 21:18 ABG Base Excess 9.5 mmol/L (-2.0-3.0) H 10/16/20 05:10 ABG Hemoglobin 9.5 (12.0-17.5) L 11/04/20 21:18 ABG Oxyhemoglobin 95.9 (94-98) 11/04/20 21:18 ABG Carboxyhemoglobin 1.9 % (0.0-5.0) 10/16/20 05:10 ABG Methemoglobin 0.3 (0.0-1.5) 11/04/20 21:18 ABG Sodium 135.7 mmol/L (136.0-145.0) L 11/04/20 21:18 ABG Potassium 3.9 mmol/L (3.40-4.50) 11/04/20 21:18 ABG Chloride 98.0 mmol/L (98-107) 11/04/20 21:18 ABG Glucose 152 mg/dL (65-95) H 11/04/20 21:18 VBG pH 6.870 (7.320-7.420) L* 10/10/20 10:48 Oxyhemoglobin 95.3 % (95.0-99.0) 10/16/20 05:10 Carboxyhemoglobin 0.7 (0.5-1.5) 11/04/20 21:18 FiO2 35 % 10/16/20 05:10 FiO2 % 35.0 11/04/20 21:18 Sodium 139 mmol/L (137-145) 11/07/20 04:50 Potassium 4.4 mmol/L (3.6-5.0) 11/07/20 04:50 Chloride 97.2 mmol/L (98-107) L 11/07/20 04:50 Carbon Dioxide 36 mmol/L (22-30) H 11/07/20 04:50 Anion Gap 10 mmol/L 11/07/20 04:50 BUN 25 mg/dL (9-20) H 11/07/20 04:50 Creatinine 1.1 mg/dL (0.8-1.3) 11/07/20 04:50 Estimated GFR > 60 ml/min 11/07/20 04:50 BUN/Creatinine Ratio 23 % 11/07/20 04:50 Glucose 130 mg/dL (75-100) H 11/07/20 04:50 POC Glucose 111 mg/dL (70-105) H 11/10/20 05:43 Hemoglobin A1c 6.0 % (4-6) 10/11/20 02:00 Lactic Acid 1.10 mmol/L (0.7-2.0) 10/13/20 04:52 Calcium 8.9 mg/dL (8.4-10.2) 11/07/20 04:50 Phosphorus 5.20 mg/dL (2.5-4.5) H D 10/17/20 03:32 Magnesium 2.30 mg/dL (1.7-2.3) 10/17/20 03:32 Ferritin 81.4 ng/mL (30.0-300.0) 10/10/20 10:48 Total Bilirubin 1.70 mg/dL (0.1-1.2) H 10/18/20 03:27 AST 37 units/L (5-40) 10/18/20 03:27 ALT 32 units/L (7-56) 10/18/20 03:27 Alkaline Phosphatase 97 units/L (35-129) 10/18/20 03:27 Ammonia 214.0 umol/L (25-60) H 10/10/20 10:46 Lactate Dehydrogenase 386 units/L (91-180) H 10/10/20 10:48 Total Creatine Kinase 1192 units/L (55-170) H 10/10/20 18:18 CK-MB (CK-2) 21.7 ng/mL (0.0-4.0) H 10/10/20 18:18 CK-MB (CK-2) Rel Index 1.8 (0-4) 10/10/20 18:18 Troponin T 0.125 ng/mL (0.00-0.029) H* D 10/12/20 04:00 C-Reactive Protein 0.90 mg/dL (0.00-1.30) 10/10/20 10:48 NT-Pro-B Natriuret Pep 1187 pg/mL (0-900) H 10/10/20 10:46 Total Protein 6.3 g/dL (6.3-8.2) 10/18/20 03:27 Albumin 3.1 g/dL (3.9-5) L 10/18/20 03:27 Albumin/Globulin Ratio 1.0 % 10/18/20 03:27 Triglycerides 278 mg/dL (2-149) H 10/13/20 04:52 Cholesterol 138 mg/dL (50-199) 10/10/20 18:18 LDL Cholesterol Direct 76 mg/dL (50-130) 10/10/20 18:18 HDL Cholesterol 49 mg/dL (40-59) 10/10/20 18:18 Cholesterol/HDL Ratio 2.81 % 10/10/20 18:18 Procalcitonin 4.98 ng/mL (<0.15) 10/15/20 04:12 TSH 6.260 mlU/mL (0.270-4.200) H 10/10/20 10:46 Arterial Blood Glucose 152 mg/dL (65-95) H 11/04/20 21:18 Arterial Blood Ionized Calcium 4.3 mg/dL (4.6-5.3) L 11/04/20 21:18 Urine Color Angelica (Yellow) 10/18/20 Unknown Urine Turbidity Cloudy (Clear) 10/18/20 Unknown Urine pH 5.0 (5.0-7.0) 10/18/20 Unknown Ur Specific [place] 1.017 (1.003-1.030) 10/18/20 Unknown Urine Protein 100 mg/dl mg/dL (Negative) 10/18/20 Unknown Urine Glucose (UA) Neg mg/dL (Negative) 10/18/20 Unknown Urine Ketones Neg mg/dL (Negative) 10/18/20 Unknown Urine Blood Lg (Negative) 10/18/20 Unknown Urine Nitrite Neg (Negative) 10/18/20 Unknown Urine Bilirubin Neg (Negative) 10/18/20 Unknown Urine Urobilinogen 4.0 mg/dL (<2.0) 10/18/20 Unknown Ur Leukocyte Esterase Neg (Negative) 10/18/20 Unknown Urine WBC (Auto) 115.0 /HPF (0.0-6.0) H 10/18/20 Unknown Urine RBC (Auto) 98.0 /HPF (0.0-6.0) 10/18/20 Unknown U Epithel Cells (Auto) 2.0 /HPF (0-13.0) 10/18/20 Unknown Urine WBC Clumps 3+ /HPF 10/18/20 Unknown Urine Mucus Few /HPF 10/11/20 13:30 Urine Eosinophils None seen (None Seen) 10/11/20 13:30 Urine Creatinine 93.7 mg/dL (0.1-20.0) H 10/19/20 13:14 Urine Sodium 25 mmol/L 10/19/20 13:14 Urine Urea Nitrogen 845 10/19/20 13:14 Nasal Screen MRSA (PCR) Positive (Negative) 10/20/20 13:30 Random Vancomycin 5.8 ug/mL (0-40.0) 10/21/20 06:30 Urine Opiates Screen Negative 10/10/20 10:50 Urine Methadone Screen Negative 10/10/20 10:50 Ur Barbiturates Screen Negative 10/10/20 10:50 Ur Phencyclidine Scrn Negative 10/10/20 10:50 Ur Amphetamines Screen Negative 10/10/20 10:50 U Benzodiazepines Scrn Negative 10/10/20 10:50 Urine Cocaine Screen Negative 10/10/20 10:50 U Marijuana (THC) Screen Positive 10/10/20 10:50 Drugs of Abuse Note Disclamer 10/10/20 10:50 Plasma/Serum Alcohol < 0.01 % (0-0.07) 10/10/20 10:48 Coronavirus (PCR) Negative (Negative) 10/11/20 Unknown Blood Type AB POSITIVE 10/10/20 10:48 Antibody Screen Negative 10/10/20 10:48 [place]/IV: Voiding Method Incontinent Active Medications - Current Medications Current Medications: Generic Name Dose Route Start Last Admin Trade Name Freq PRN Reason Stop Dose Admin Acetaminophen 650 mg 10/10/20 21:51 11/10/20 05:48 Acetaminophen 325 Mg Tab PO 650 mg Q4H PRN Administration Pain MILD(1-3)/Fever >100.5/[place] Albuterol 2.5 mg 10/11/20 13:12 11/09/20 20:12 Albuterol 2.5 Mg/3 Ml Nebu IH 2.5 mg Q6HRT PRN Administration Shortness Of Breath Amlodipine Besylate 10 mg 10/25/20 13:00 11/10/20 10:19 Amlodipine 10 Mg Tab PO 10 mg QDAY PEPITO Administration Lipase/Protease/Amylase 1 each 10/10/20 22:18 Lipase 10,500/Protease 25,000/Amylase 43,750 (Units) Dr Santana FEEDTUBE PRN PRN For Clogged Feeding Tube Clonidine HCl 0.3 mg 10/14/20 15:00 11/04/20 15:43 Clonidine Tts 0.3 Mg/24 Hr Patch TD 0.3 mg Fr PEPITO Administration Docusate Sodium 100 mg 10/16/20 22:00 11/10/20 10:19 Docusate Sodium 100 Mg/10 Ml Oral Liqd PO 100 mg BID PEPITO Administration Fentanyl 1 applic 11/09/20 18:00 11/09/20 17:45 Fentanyl 25 Mcg/Hr Patch 72hr TD 1 applic Q72H PEPITO Administration Glycopyrrolate 1 mg 11/04/20 14:00 11/10/20 05:48 Glycopyrrolate 1 Mg Tab PO 1 mg Q8HR PEPITO Administration Heparin Sodium (Porcine) 5,000 unit 10/11/20 22:00 11/10/20 10:19 Heparin 5,000 Unit/1 Ml Vial SUB-Q 5,000 unit Q12HR PEPITO Administration Hydralazine HCl 10 mg 11/02/20 08:46 Hydralazine 20 Mg/1 Ml Inj IV Q6H PRN Hypertension Hydralazine HCl 100 mg 11/10/20 06:00 11/10/20 05:48 Hydralazine 100 Mg Tab PO 100 mg Q8HR PEPITO Administration Hydromorphone HCl 0.5 mg 11/01/20 20:55 11/09/20 23:31 Hydromorphone 1 Mg/1 Ml Inj IV 0.5 mg Q3H PRN Administration Pain , Severe (7-10) Hydrophilic Ointment 1 applic 10/10/20 10:34 Lip Therapy Vaseline TP Q2HR PRN Dry Lips Lansoprazole 30 mg 10/24/20 10:00 11/10/20 10:19 Lansoprazole 30 Mg Solutab FEEDTUBE 30 mg BID PEPITO Administration Levetiracetam 500 mg 10/31/20 10:00 11/10/20 10:19 Levetiracetam 500 Mg/5 Ml Oral Liqd PO 500 mg BID PEPITO Administration Lorazepam 1 mg 11/04/20 19:27 11/10/20 05:58 Lorazepam 2 Mg/Ml Vial IV 1 mg Q4H PRN Administration Agitation Metoclopramide HCl 10 mg 10/10/20 21:51 Metoclopramide 10 Mg/2 Ml Inj IV Q6H PRN Nausea And Vomiting Metoprolol Tartrate 100 mg 10/21/20 14:00 11/10/20 10:19 Metoprolol Tartrate 50 Mg Tab PO 100 mg TID PEPITO Administration Multi-Ingred Cream/Lotion/Oil/Oint 1 applic 10/10/20 10:34 Mineral Oil/Petrolatum, White Ophth Oint 3.5 Gm OU Q4HR PRN Dry Eye(s) Ondansetron HCl 4 mg 10/10/20 21:51 11/01/20 20:48 Ondansetron 4 Mg/2 Ml Inj IV 4 mg Q3H PRN Administration Nausea And Vomiting Polyethylene Glycol 17 gm 10/17/20 10:00 11/10/20 10:19 Polyethylene Glycol 3350 17 Gm Powder PO 17 gm QDAY PEPITO Administration Quetiapine Fumarate 100 mg 11/02/20 10:00 11/10/20 10:19 Quetiapine 100 Mg Tab PO 100 mg DAILY PEPITO Administration Quetiapine Fumarate 200 mg 11/07/20 22:00 11/09/20 23:32 Quetiapine 200 Mg Tab PO 200 mg QHS PEPITO Administration Quetiapine Fumarate 25 mg 11/07/20 14:00 11/10/20 10:19 Quetiapine 25 Mg Tab PO 25 mg DAILY PEPITO Administration Scopolamine 1 each 10/17/20 10:00 11/10/20 10:21 Scopolamine Transdermal Patch 72 Hr TD 1 each Q3D PEPITO Administration Simple Syrup 15 ml 10/10/20 22:18 Simple Syrup 15 Ml FEEDTUBE PRN PRN Hypoglycemia Simple Syrup 30 ml 10/10/20 22:18 Simple Syrup 15 Ml FEEDTUBE PRN PRN Hypoglycemia Sodium Bicarbonate 325 mg 03/29/21 22:18 Sodium Bicarbonate 325 Mg Tab FEEDTUBE PRN PRN For Clogged Feeding Tube Sodium Chloride 10 ml 10/10/20 22:00 11/10/20 10:29 Sodium Chloride 0.9% 10 Ml Flush Syringe IV Not Given BID PEPITO Sodium Chloride 10 ml 10/10/20 21:51 10/21/20 09:56 Sodium Chloride 0.9% 10 Ml Flush Syringe IV 10 ml PRN PRN Administration LINE FLUSH Nutrition/Malnutrition Assess - Dietary Evaluation Nutrition/Malnutrition Findings: Nutrition Notes Start: 10/11/20 08:38 Freq: Status: Active Protocol: Document 11/09/20 08:06 LP (Rec: 11/09/20 08:09 LP [id number]) Nutrition Notes Initial or Follow up Reassessment Current Diagnosis Acute Kidney Injury,Sepsis, Hypertension,Heart Failure, Respiratory Failure Other Pertinent Diagnosis GIB, pneu, MRSA HI, pulmonary edema Current Diet Promote at 80 ml/hr Labs/Tests Reviewed Pertinent Medications Reviewed Height 6 ft Weight 125.6 kg [place] Body Weight (kg) 80.90 BMI 37.5 Weight change and time frame Wt fluctuations expected Weight Status Morbidly Obese Subjective/Other Information Pt tolerating TF at goal rate. Percent of energy/protein needs met: 100%/74% Burn Absent Trauma Absent Difficulty In Swallowing Skin Integrity/Comment DTI to heel Current % PO Negligible Minimum of two criteria No Fluid Accumulation Mild (non-severe) #3 Nutrition Diagnosis Increased nutrient needs ( specify in comment below) Diagnosis Progress(for reassessment Continues documentation) #1 Nutrition Diagnosis Inadequate oral intake Diagnosis Progress(for reassessment Continues documentation) Is patient on ventilator? Yes Is Patient Ambulatory and/or Out of Bed No REE-([facility]-confined to bed) 2570.376 Kcal/Kg value to use for calculation 15 Approximate Energy Requirements Using 1884 kcal/Kg Calculation Used for Recommendations Kcal/kg Additional Notes protein needs: >162g (>2 kgIBW of dry weight) fluid needs: 1 ml/kcal or per MD Nutrition Intervention Change Diet Order: Continue Nutrition Support: Promote at 80 ml/hr flush of 50 ml q4h. Kcal 1,920 Protein (gm) 120 Fluid (mL) 1,611 Goal #1 Tolerate TF Goal #2 Meet at least 70% of protein and 100% of kcal needs via TF Anticipated Discharge Needs: TF Follow-Up By: 11/14/20 Additional Comments Follow for stable TF
[2020-11-10] MEDS: HYDROmorphone 1 MG/1 ML INJ IV PRN ×3 (12:27→20:20)
--- NOTE | 2020-11-10 14:15 | Progress Note ---
Assessment and Plan Cardiac arrest x3 with ROSC Severe septic and cardiogenic shock Acute respiratory failure with hypoxemia and hypercarbia Acute pulmonary edema MOE (acute kidney injury) Lactic acidosis, severe metabolic acidosis Bilateral pneumonia, aspiration pneumonia Elevated troponins - continue RTC t-piece as tolerated - no new issues otherwise, continue care as below; - continue mucomyst nebs - prn gentle diuresis - continue Seroquel for agitation control - daily SAT's and SBT assessment as tolerated - continue contact precautions re: MRSA - complete anti-infective's per ID rec's - follow clinically re: fevers / WBC - Monitor hemodynamics closely - wean supplemental oxygen for target O2 sat's > 92% acutely - VAP bundle addressed - continue lung protective strategies - bronchodilators with pulmonary hygiene per RT - wean per pulmonary driven protocols otherwise - Monitor urine output closely - bicarbonate infusion - avoid nephrotoxins, renally dose all medications - continue to avoid benzodiazepine's, reduce the possibility of delirium - continue Scopolamine for secretion control - continue wound care per RN/WCN - prn analgesia per CPOT score - Maintenance of sleep-wake cycle, avoid delirium - continue enteral nutritional support at goal rate as tolerated - G.I. & VTE prophylaxis - PT/OT/ROM exercises - continue mobility protocols for pressure ulcer prophylaxis - Monitor hemodynamics closely - continue other care per attending / other consultants - discharge planning ongoing concurrently .... Re-evaluate in am & prn CONDITION: CRITICAL PROGNOSIS: GUARDED CODE STATUS: FULL CODE The high probability of a clinically significant, sudden or life-threatening deterioration of the [respiratory, cardiovascular & neurologic] system(s) required my full and direct attention, intervention and personal management. The aggregate critical care time was [34] minutes without overlap. Time includes spent on; [x] Data Review and interpretation [x] Patient assessment and monitoring of vital signs [x] Documentation [x] Medication orders and management Subjective Date of service: 11/10/20 Principal diagnosis: Cardiac arrest; Septic Shock; Ac. hypoxemic & hypercapnic resp failure; MOE Interval history: Patient is seen today for: Cardiac arrest with ROSC; Severe septic and cardiogenic shock; Acute respiratory failure with hypoxemia and hypercarbia; Acute pulmonary edema; MOE; Lactic acidosis; severe metabolic acidosis; Bilateral pneumonia; aspiration pneumonia; Elevated troponins Seen and examined at bedside; 24hour events reviewed; nursing and respiratory care staff consulted; no adverse overnight events reported to me; resting peacefully in bed; tolerated overnight T-piece but tenuously; no emesis or overt aspiration; AMS is persistent Objective Vital Signs - 12hr 11/10/20 11/10/20 11/10/20 02:30 03:00 03:30 Temperature Pulse Rate 71 71 71 Pulse Rate [ From Monitor] Respiratory Rate Blood Pressure 117/64 108/68 108/68 O2 Sat by Pulse 100 100 100 Oximetry O2 Sat by Pulse Oximetry [ Assessment] 11/10/20 11/10/20 11/10/20 04:00 04:10 04:30 Temperature 99.1 F Pulse Rate 71 72 72 Pulse Rate [ 71 From Monitor] Respiratory Rate Blood Pressure 118/71 118/71 O2 Sat by Pulse 100 100 Oximetry O2 Sat by Pulse Oximetry [ Assessment] 11/10/20 11/10/20 11/10/20 05:00 05:01 05:30 Temperature Pulse Rate 73 74 Pulse Rate [ From Monitor] Respiratory Rate Blood Pressure 134/78 134/78 O2 Sat by Pulse 100 75 L 100 Oximetry O2 Sat by Pulse Oximetry [ Assessment] 11/10/20 11/10/20 11/10/20 06:00 06:30 07:00 Temperature Pulse Rate 76 75 74 Pulse Rate [ From Monitor] Respiratory 22 18 21 Rate Blood Pressure 140/87 153/90 111/53 O2 Sat by Pulse 100 100 100 Oximetry O2 Sat by Pulse Oximetry [ Assessment] 11/10/20 11/10/20 11/10/20 07:30 08:00 08:30 Temperature 98.2 F Pulse Rate 75 74 75 Pulse Rate [ 73 From Monitor] Respiratory 20 20 22 Rate Blood Pressure 111/53 118/66 118/66 O2 Sat by Pulse 100 100 100 Oximetry O2 Sat by Pulse Oximetry [ Assessment] 11/10/20 11/10/20 11/10/20 08:48 09:00 09:30 Temperature Pulse Rate 73 72 Pulse Rate [ From Monitor] Respiratory 20 21 Rate Blood Pressure 119/66 118/66 O2 Sat by Pulse 100 100 Oximetry O2 Sat by Pulse 100 Oximetry [ Assessment] 11/10/20 11/10/20 11/10/20 10:00 10:19 10:31 Temperature Pulse Rate 73 73 77 Pulse Rate [ From Monitor] Respiratory 20 24 Rate Blood Pressure 119/74 119/74 119/66 O2 Sat by Pulse 98 100 Oximetry O2 Sat by Pulse Oximetry [ Assessment] 11/10/20 11/10/20 11/10/20 11:01 11:31 12:00 Temperature 98.4 F Pulse Rate 75 69 77 Pulse Rate [ 73 From Monitor] Respiratory 23 22 19 Rate Blood Pressure 106/79 106/79 O2 Sat by Pulse 100 100 100 Oximetry O2 Sat by Pulse Oximetry [ Assessment] 11/10/20 11/10/20 11/10/20 12:01 12:31 13:01 Temperature Pulse Rate 79 87 75 Pulse Rate [ From Monitor] Respiratory 19 22 19 Rate Blood Pressure 106/79 106/79 137/72 O2 Sat by Pulse 100 100 98 Oximetry O2 Sat by Pulse Oximetry [ Assessment] 11/10/20 13:07 Temperature Pulse Rate 75 Pulse Rate [ From Monitor] Respiratory Rate Blood Pressure 137/72 O2 Sat by Pulse Oximetry O2 Sat by Pulse Oximetry [ Assessment] Constitutional: appears uncomfortable (mild agitation), other (middle aged obese male with mildly increased respiratory efort at rest) Eyes: non-icteric ENT: oropharynx moist, oropharyngeal exudate pre (thick), other (midline trache ostomy) Neck: supple, no lymphadenopathy, no JVD Effort: mildly labored Ascultation: Bilateral: diminished breath sounds, rhonchi (scant) Percussion: Bilateral: not dull Cardiovascular: regular rate and rhythm, other (S1,S2) Gastrointestinal: normoactive bowel sounds, soft, non-tender, non-distended (protuberant) Integumentary: normal Extremities: no cyanosis, no edema, pulses normal, no ischemia or petechiae Neurologic: pupils equal and round, unable to assess, other (encephalopathic) Psychiatric: other (unable to assess re: AMS) CBC and BMP: 11/11/20 11:00 11/11/20 08:38 ABG, PT/INR, D-dimer: ABG ABG pH 7.511 (7.320-7.450) H 11/04/20 21:18 POC ABG pCO2 49.0 mmHg (32.0-48.0) H 11/04/20 21:18 ABG pCO2 55.5 mm Hg 10/16/20 05:10 POC ABG pO2 88.5 mmHg (83-108) 11/04/20 21:18 ABG pO2 104.5 mm Hg (80.0-90.0) H 10/16/20 05:10 POC ABG HCO3 38.3 11/04/20 21:18 ABG O2 Saturation 96.9 (0-100) 11/04/20 21:18 PT/INR, D-dimer PT 13.5 Sec. (12.2-14.9) 10/28/20 07:00 INR 1.05 (0.87-1.13) 10/28/20 07:00 D-Dimer 679.5 ng/mlDDU (0-234) H 10/10/20 10:48 Abnormal lab findings: Abnormal Labs 10/10/20 10/10/20 10/10/20 10:46 10:46 10:46 WBC RBC Hgb Hct RDW Lymph % (Auto) [place] % (Auto) Eos % (Auto) Lymph # (Auto) [place] # (Auto) Eos # (Auto) Seg Neutrophils % Lymphocytes % (Manual) Monocytes % (Manual) Seg Neutrophils # Seg Neutrophils # Man Lymphocytes # (Manual) Monocytes # (Manual) D-Dimer Heparin Anti-Xa Level ABG pH POC ABG pCO2 POC ABG pO2 ABG pO2 ABG HCO3 ABG O2 Saturation ABG Base Excess ABG Hemoglobin ABG Oxyhemoglobin ABG Sodium ABG Potassium ABG Chloride ABG Glucose VBG pH Oxyhemoglobin Carboxyhemoglobin Sodium Potassium Chloride Carbon Dioxide BUN Creatinine Glucose POC Glucose Lactic Acid 13.60 H* Calcium Phosphorus Magnesium Total Bilirubin AST ALT Ammonia 214.0 H Lactate Dehydrogenase Total Creatine Kinase CK-MB (CK-2) Troponin T NT-Pro-B Natriuret Pep Total Protein Albumin Triglycerides TSH 6.260 H Arterial Blood Glucose Arterial Blood Ionized Calcium Urine pH Urine WBC (Auto) Urine Creatinine 10/10/20 10/10/20 10/10/20 10:46 10:48 10:48 WBC RBC 5.28 H Hgb 15.5 H Hct 48.8 H RDW Lymph % (Auto) [place] % (Auto) Eos % (Auto) Lymph # (Auto) [place] # (Auto) Eos # (Auto) Seg Neutrophils % Lymphocytes % (Manual) 42.0 H Monocytes % (Manual) Seg Neutrophils # Seg Neutrophils # Man Lymphocytes # (Manual) Monocytes # (Manual) D-Dimer Heparin Anti-Xa Level ABG pH POC ABG pCO2 POC ABG pO2 ABG pO2 ABG HCO3 ABG O2 Saturation ABG Base Excess ABG Hemoglobin ABG Oxyhemoglobin ABG Sodium ABG Potassium ABG Chloride ABG Glucose VBG pH Oxyhemoglobin Carboxyhemoglobin Sodium Potassium 3.3 L Chloride 91.2 L Carbon Dioxide BUN Creatinine 1.8 H Glucose 231 H POC Glucose Lactic Acid Calcium Phosphorus Magnesium Total Bilirubin AST 60 H ALT 57 H Ammonia Lactate Dehydrogenase Total Creatine Kinase CK-MB (CK-2) Troponin T NT-Pro-B Natriuret Pep 1187 H Total Protein 9.0 H Albumin Triglycerides TSH Arterial Blood Glucose Arterial Blood Ionized Calcium Urine pH Urine WBC (Auto) Urine Creatinine 10/10/20 10/10/20 10/10/20 10:48 10:48 10:48 WBC RBC Hgb Hct RDW Lymph % (Auto) [place] % (Auto) Eos % (Auto) Lymph # (Auto) [place] # (Auto) Eos # (Auto) Seg Neutrophils % Lymphocytes % (Manual) Monocytes % (Manual) Seg Neutrophils # Seg Neutrophils # Man Lymphocytes # (Manual) Monocytes # (Manual) D-Dimer 679.5 H Heparin Anti-Xa Level ABG pH POC ABG pCO2 POC ABG pO2 ABG pO2 ABG HCO3 ABG O2 Saturation ABG Base Excess ABG Hemoglobin ABG Oxyhemoglobin ABG Sodium ABG Potassium ABG Chloride ABG Glucose VBG pH 6.870 L* Oxyhemoglobin Carboxyhemoglobin Sodium Potassium Chloride Carbon Dioxide BUN Creatinine Glucose POC Glucose Lactic Acid Calcium Phosphorus Magnesium Total Bilirubin AST ALT Ammonia Lactate Dehydrogenase 386 H Total Creatine Kinase CK-MB (CK-2) Troponin T NT-Pro-B Natriuret Pep Total Protein Albumin Triglycerides TSH Arterial Blood Glucose Arterial Blood Ionized Calcium Urine pH Urine WBC (Auto) Urine Creatinine 10/10/20 10/10/20 10/10/20 14:10 14:20 15:50 WBC RBC Hgb Hct RDW Lymph % (Auto) [place] % (Auto) Eos % (Auto) Lymph # (Auto) [place] # (Auto) Eos # (Auto) Seg Neutrophils % Lymphocytes % (Manual) Monocytes % (Manual) Seg Neutrophils # Seg Neutrophils # Man Lymphocytes # (Manual) Monocytes # (Manual) D-Dimer Heparin Anti-Xa Level ABG pH 7.175 L 7.247 L POC ABG pCO2 85.0 H POC ABG pO2 43.7 L ABG pO2 60.3 L ABG HCO3 32.0 H ABG O2 Saturation 86.1 L ABG Base Excess ABG Hemoglobin ABG Oxyhemoglobin 67.7 L ABG Sodium ABG Potassium ABG Chloride ABG Glucose 247 H VBG pH Oxyhemoglobin 84.4 L Carboxyhemoglobin Sodium Potassium Chloride Carbon Dioxide BUN Creatinine Glucose POC Glucose Lactic Acid 4.00 H* Calcium Phosphorus Magnesium Total Bilirubin AST ALT Ammonia Lactate Dehydrogenase Total Creatine Kinase CK-MB (CK-2) Troponin T NT-Pro-B Natriuret Pep Total Protein Albumin Triglycerides TSH Arterial Blood Glucose 247 H Arterial Blood Ionized Calcium 4.4 L Urine pH Urine WBC (Auto) Urine Creatinine 10/10/20 10/10/20 10/10/20 15:50 16:22 18:18 WBC RBC Hgb Hct RDW Lymph % (Auto) [place] % (Auto) Eos % (Auto) Lymph # (Auto) [place] # (Auto) Eos # (Auto) Seg Neutrophils % Lymphocytes % (Manual) Monocytes % (Manual) Seg Neutrophils # Seg Neutrophils # Man Lymphocytes # (Manual) Monocytes # (Manual) D-Dimer Heparin Anti-Xa Level ABG pH 7.171 L POC ABG pCO2 96.6 H POC ABG pO2 55.3 L ABG pO2 ABG HCO3 ABG O2 Saturation ABG Base Excess ABG Hemoglobin ABG Oxyhemoglobin 81.4 L ABG Sodium ABG Potassium ABG Chloride ABG Glucose 115 H VBG pH Oxyhemoglobin Carboxyhemoglobin Sodium Potassium Chloride Carbon Dioxide BUN Creatinine Glucose POC Glucose 132 H Lactic Acid Calcium Phosphorus Magnesium Total Bilirubin AST ALT Ammonia Lactate Dehydrogenase Total Creatine Kinase 1192 H CK-MB (CK-2) 21.7 H Troponin T 0.377 H* D NT-Pro-B Natriuret Pep Total Protein Albumin Triglycerides TSH Arterial Blood Glucose 115 H Arterial Blood Ionized Calcium Urine pH Urine WBC (Auto) Urine Creatinine 10/10/20 10/10/20 10/10/20 18:18 18:18 22:49 WBC 23.0 H RBC 5.12 H Hgb Hct RDW Lymph % (Auto) [place] % (Auto) Eos % (Auto) Lymph # (Auto) [place] # (Auto) Eos # (Auto) Seg Neutrophils % Lymphocytes % (Manual) 4.0 L Monocytes % (Manual) 9.0 H Seg Neutrophils # Seg Neutrophils # Man 13.8 H Lymphocytes # (Manual) 0.9 L Monocytes # (Manual) 2.1 H D-Dimer Heparin Anti-Xa Level ABG pH POC ABG pCO2 POC ABG pO2 ABG pO2 ABG HCO3 ABG O2 Saturation ABG Base Excess ABG Hemoglobin ABG Oxyhemoglobin ABG Sodium ABG Potassium ABG Chloride ABG Glucose VBG pH Oxyhemoglobin Carboxyhemoglobin Sodium 146 H Potassium Chloride Carbon Dioxide 34 H D BUN 27 H Creatinine 2.7 H Glucose 102 H POC Glucose Lactic Acid Calcium Phosphorus Magnesium Total Bilirubin AST 90 H ALT 66 H Ammonia Lactate Dehydrogenase Total Creatine Kinase CK-MB (CK-2) Troponin T 0.273 H* D NT-Pro-B Natriuret Pep Total Protein Albumin Triglycerides TSH Arterial Blood Glucose Arterial Blood Ionized Calcium Urine pH Urine WBC (Auto) Urine Creatinine 10/11/20 10/11/20 10/11/20 02:00 02:00 02:00 WBC 17.3 H RBC Hgb Hct RDW Lymph % (Auto) 3.9 L [place] % (Auto) Eos % (Auto) Lymph # (Auto) 0.7 L [place] # (Auto) Eos # (Auto) Seg Neutrophils % 93.0 H Lymphocytes % (Manual) Monocytes % (Manual) Seg Neutrophils # 16.1 H Seg Neutrophils # Man Lymphocytes # (Manual) Monocytes # (Manual) D-Dimer Heparin Anti-Xa Level ABG pH POC ABG pCO2 POC ABG pO2 ABG pO2 ABG HCO3 ABG O2 Saturation ABG Base Excess ABG Hemoglobin ABG Oxyhemoglobin ABG Sodium ABG Potassium ABG Chloride ABG Glucose VBG pH Oxyhemoglobin Carboxyhemoglobin Sodium 149 H Potassium 3.3 L Chloride 95.3 L Carbon Dioxide 37 H BUN 29 H Creatinine 2.6 H Glucose POC Glucose Lactic Acid Calcium Phosphorus Magnesium Total Bilirubin AST 80 H ALT 59 H Ammonia Lactate Dehydrogenase Total Creatine Kinase CK-MB (CK-2) Troponin T 0.201 H* D NT-Pro-B Natriuret Pep Total Protein Albumin 3.6 L Triglycerides TSH Arterial Blood Glucose Arterial Blood Ionized Calcium Urine pH Urine WBC (Auto) Urine Creatinine 10/11/20 10/11/20 10/11/20 03:51 08:35 11:15 WBC RBC Hgb Hct RDW Lymph % (Auto) [place] % (Auto) Eos % (Auto) Lymph # (Auto) [place] # (Auto) Eos # (Auto) Seg Neutrophils % Lymphocytes % (Manual) Monocytes % (Manual) Seg Neutrophils # Seg Neutrophils # Man Lymphocytes # (Manual) Monocytes # (Manual) D-Dimer Heparin Anti-Xa Level 0.22 L ABG pH 7.491 H POC ABG pCO2 57.6 H POC ABG pO2 ABG pO2 ABG HCO3 ABG O2 Saturation ABG Base Excess ABG Hemoglobin ABG Oxyhemoglobin ABG Sodium 150.0 H ABG Potassium 3.1 L ABG Chloride 96.0 L ABG Glucose 122 H VBG pH Oxyhemoglobin Carboxyhemoglobin Sodium Potassium Chloride Carbon Dioxide BUN Creatinine Glucose POC Glucose 151 H Lactic Acid Calcium Phosphorus Magnesium Total Bilirubin AST ALT Ammonia Lactate Dehydrogenase Total Creatine Kinase CK-MB (CK-2) Troponin T NT-Pro-B Natriuret Pep Total Protein Albumin Triglycerides TSH Arterial Blood Glucose 122 H Arterial Blood Ionized Calcium 3.9 L Urine pH Urine WBC (Auto) Urine Creatinine 10/11/20 10/11/20 10/11/20 13:30 13:30 13:30 WBC 15.0 H RBC Hgb Hct RDW Lymph % (Auto) [place] % (Auto) Eos % (Auto) Lymph # (Auto) [place] # (Auto) Eos # (Auto) Seg Neutrophils % Lymphocytes % (Manual) Monocytes % (Manual) Seg Neutrophils # Seg Neutrophils # Man Lymphocytes # (Manual) Monocytes # (Manual) D-Dimer Heparin Anti-Xa Level ABG pH POC ABG pCO2 POC ABG pO2 ABG pO2 ABG HCO3 ABG O2 Saturation ABG Base Excess ABG Hemoglobin ABG Oxyhemoglobin ABG Sodium ABG Potassium ABG Chloride ABG Glucose VBG pH Oxyhemoglobin Carboxyhemoglobin Sodium Potassium Chloride Carbon Dioxide BUN Creatinine Glucose POC Glucose Lactic Acid Calcium Phosphorus Magnesium Total Bilirubin AST ALT Ammonia Lactate Dehydrogenase Total Creatine Kinase CK-MB (CK-2) Troponin T NT-Pro-B Natriuret Pep Total Protein Albumin Triglycerides TSH Arterial Blood Glucose Arterial Blood Ionized Calcium Urine pH 9.0 H Urine WBC (Auto) 18.0 H Urine Creatinine 80.5 H 10/11/20 10/11/20 10/12/20 17:17 23:14 03:53 WBC RBC Hgb Hct RDW Lymph % (Auto) [place] % (Auto) Eos % (Auto) Lymph # (Auto) [place] # (Auto) Eos # (Auto) Seg Neutrophils % Lymphocytes % (Manual) Monocytes % (Manual) Seg Neutrophils # Seg Neutrophils # Man Lymphocytes # (Manual) Monocytes # (Manual) D-Dimer Heparin Anti-Xa Level ABG pH 7.545 H POC ABG pCO2 54.6 H POC ABG pO2 231.9 H ABG pO2 ABG HCO3 ABG O2 Saturation ABG Base Excess ABG Hemoglobin ABG Oxyhemoglobin 98.5 H ABG Sodium 150.5 H ABG Potassium 3.2 L ABG Chloride 96.0 L ABG Glucose 148 H VBG pH Oxyhemoglobin Carboxyhemoglobin Sodium Potassium Chloride Carbon Dioxide BUN Creatinine Glucose POC Glucose 121 H 135 H Lactic Acid Calcium Phosphorus Magnesium Total Bilirubin AST ALT Ammonia Lactate Dehydrogenase Total Creatine Kinase CK-MB (CK-2) Troponin T NT-Pro-B Natriuret Pep Total Protein Albumin Triglycerides TSH Arterial Blood Glucose 148 H Arterial Blood Ionized Calcium 3.8 L Urine pH Urine WBC (Auto) Urine Creatinine 10/12/20 10/12/20 10/12/20 04:00 05:10 05:12 WBC 14.3 H RBC Hgb 11.6 L Hct 35.2 L RDW Lymph % (Auto) [place] % (Auto) Eos % (Auto) Lymph # (Auto) [place] # (Auto) Eos # (Auto) Seg Neutrophils % Lymphocytes % (Manual) Monocytes % (Manual) Seg Neutrophils # Seg Neutrophils # Man Lymphocytes # (Manual) Monocytes # (Manual) D-Dimer Heparin Anti-Xa Level ABG pH POC ABG pCO2 POC ABG pO2 ABG pO2 ABG HCO3 ABG O2 Saturation ABG Base Excess ABG Hemoglobin ABG Oxyhemoglobin ABG Sodium ABG Potassium ABG Chloride ABG Glucose VBG pH Oxyhemoglobin Carboxyhemoglobin Sodium 155 H Potassium 3.3 L Chloride 97.9 L Carbon Dioxide 47 H* D BUN 50 H Creatinine 3.4 H Glucose 146 H POC Glucose 137 H Lactic Acid Calcium 8.0 L Phosphorus Magnesium Total Bilirubin AST ALT Ammonia Lactate Dehydrogenase Total Creatine Kinase CK-MB (CK-2) Troponin T 0.125 H* D NT-Pro-B Natriuret Pep Total Protein Albumin Triglycerides TSH Arterial Blood Glucose Arterial Blood Ionized Calcium Urine pH Urine WBC (Auto) Urine Creatinine 10/12/20 10/12/20 10/12/20 11:39 16:01 19:49 WBC RBC Hgb Hct RDW Lymph % (Auto) [place] % (Auto) Eos % (Auto) Lymph # (Auto) [place] # (Auto) Eos # (Auto) Seg Neutrophils % Lymphocytes % (Manual) Monocytes % (Manual) Seg Neutrophils # Seg Neutrophils # Man Lymphocytes # (Manual) Monocytes # (Manual) D-Dimer Heparin Anti-Xa Level ABG pH POC ABG pCO2 POC ABG pO2 ABG pO2 ABG HCO3 ABG O2 Saturation ABG Base Excess ABG Hemoglobin ABG Oxyhemoglobin ABG Sodium ABG Potassium ABG Chloride ABG Glucose VBG pH Oxyhemoglobin Carboxyhemoglobin Sodium 157 H Potassium 3.3 L Chloride Carbon Dioxide 47 H* BUN 52 H Creatinine 3.0 H Glucose 137 H POC Glucose 138 H 119 H Lactic Acid Calcium 8.0 L Phosphorus Magnesium Total Bilirubin AST ALT Ammonia Lactate Dehydrogenase Total Creatine Kinase CK-MB (CK-2) Troponin T NT-Pro-B Natriuret Pep Total Protein Albumin Triglycerides TSH Arterial Blood Glucose Arterial Blood Ionized Calcium Urine pH Urine WBC (Auto) Urine Creatinine 10/12/20 10/13/20 10/13/20 23:37 02:28 04:52 WBC RBC Hgb Hct RDW Lymph % (Auto) [place] % (Auto) Eos % (Auto) Lymph # (Auto) [place] # (Auto) Eos # (Auto) Seg Neutrophils % Lymphocytes % (Manual) Monocytes % (Manual) Seg Neutrophils # Seg Neutrophils # Man Lymphocytes # (Manual) Monocytes # (Manual) D-Dimer Heparin Anti-Xa Level ABG pH 7.485 H POC ABG pCO2 57.1 H POC ABG pO2 ABG pO2 ABG HCO3 ABG O2 Saturation ABG Base Excess ABG Hemoglobin ABG Oxyhemoglobin ABG Sodium 152.4 H ABG Potassium ABG Chloride ABG Glucose 129 H VBG pH Oxyhemoglobin Carboxyhemoglobin Sodium 155 H Potassium Chloride Carbon Dioxide 45 H* BUN 52 H Creatinine 2.7 H Glucose 121 H POC Glucose 131 H Lactic Acid Calcium Phosphorus Magnesium 2.40 H Total Bilirubin AST ALT Ammonia Lactate Dehydrogenase Total Creatine Kinase CK-MB (CK-2) Troponin T NT-Pro-B Natriuret Pep Total Protein Albumin Triglycerides 278 H TSH Arterial Blood Glucose 129 H Arterial Blood Ionized Calcium 4.1 L Urine pH Urine WBC (Auto) Urine Creatinine 10/13/20 10/13/20 10/13/20 04:52 05:13 11:37 WBC 14.7 H RBC Hgb 11.7 L Hct RDW 15.8 H Lymph % (Auto) [place] % (Auto) Eos % (Auto) Lymph # (Auto) [place] # (Auto) Eos # (Auto) Seg Neutrophils % Lymphocytes % (Manual) Monocytes % (Manual) Seg Neutrophils # Seg Neutrophils # Man Lymphocytes # (Manual) Monocytes # (Manual) D-Dimer Heparin Anti-Xa Level ABG pH POC ABG pCO2 POC ABG pO2 ABG pO2 ABG HCO3 ABG O2 Saturation ABG Base Excess ABG Hemoglobin ABG Oxyhemoglobin ABG Sodium ABG Potassium ABG Chloride ABG Glucose VBG pH Oxyhemoglobin Carboxyhemoglobin Sodium Potassium Chloride Carbon Dioxide BUN Creatinine Glucose POC Glucose 116 H 116 H Lactic Acid Calcium Phosphorus Magnesium Total Bilirubin AST ALT Ammonia Lactate Dehydrogenase Total Creatine Kinase CK-MB (CK-2) Troponin T NT-Pro-B Natriuret Pep Total Protein Albumin Triglycerides TSH Arterial Blood Glucose Arterial Blood Ionized Calcium Urine pH Urine WBC (Auto) Urine Creatinine 10/13/20 10/14/20 10/14/20 17:50 03:45 04:46 WBC 11.1 H RBC Hgb Hct RDW 15.3 H Lymph % (Auto) [place] % (Auto) Eos % (Auto) Lymph # (Auto) [place] # (Auto) Eos # (Auto) Seg Neutrophils % Lymphocytes % (Manual) Monocytes % (Manual) Seg Neutrophils # Seg Neutrophils # Man Lymphocytes # (Manual) Monocytes # (Manual) D-Dimer Heparin Anti-Xa Level ABG pH POC ABG pCO2 59.6 H POC ABG pO2 ABG pO2 ABG HCO3 ABG O2 Saturation ABG Base Excess ABG Hemoglobin ABG Oxyhemoglobin ABG Sodium 151.4 H ABG Potassium 3.3 L ABG Chloride ABG Glucose 138 H VBG pH Oxyhemoglobin Carboxyhemoglobin 1.6 H Sodium Potassium Chloride Carbon Dioxide BUN Creatinine Glucose POC Glucose 140 H Lactic Acid Calcium Phosphorus Magnesium Total Bilirubin AST ALT Ammonia Lactate Dehydrogenase Total Creatine Kinase CK-MB (CK-2) Troponin T NT-Pro-B Natriuret Pep Total Protein Albumin Triglycerides TSH Arterial Blood Glucose 138 H Arterial Blood Ionized Calcium 4.5 L Urine pH Urine WBC (Auto) Urine Creatinine 10/14/20 10/14/20 10/14/20 04:46 05:10 11:11 WBC RBC Hgb Hct RDW Lymph % (Auto) [place] % (Auto) Eos % (Auto) Lymph # (Auto) [place] # (Auto) Eos # (Auto) Seg Neutrophils % Lymphocytes % (Manual) Monocytes % (Manual) Seg Neutrophils # Seg Neutrophils # Man Lymphocytes # (Manual) Monocytes # (Manual) D-Dimer Heparin Anti-Xa Level ABG pH POC ABG pCO2 POC ABG pO2 ABG pO2 ABG HCO3 ABG O2 Saturation ABG Base Excess ABG Hemoglobin ABG Oxyhemoglobin ABG Sodium ABG Potassium ABG Chloride ABG Glucose VBG pH Oxyhemoglobin Carboxyhemoglobin Sodium 152 H Potassium 3.5 L Chloride Carbon Dioxide 38 H D BUN 46 H Creatinine 2.3 H Glucose 127 H POC Glucose 116 H 114 H Lactic Acid Calcium Phosphorus Magnesium Total Bilirubin AST ALT Ammonia Lactate Dehydrogenase Total Creatine Kinase CK-MB (CK-2) Troponin T NT-Pro-B Natriuret Pep Total Protein Albumin Triglycerides TSH Arterial Blood Glucose Arterial Blood Ionized Calcium Urine pH Urine WBC (Auto) Urine Creatinine 10/14/20 10/14/20 10/15/20 18:53 23:23 04:12 WBC RBC Hgb Hct RDW Lymph % (Auto) [place] % (Auto) Eos % (Auto) Lymph # (Auto) [place] # (Auto) Eos # (Auto) Seg Neutrophils % Lymphocytes % (Manual) Monocytes % (Manual) Seg Neutrophils # Seg Neutrophils # Man Lymphocytes # (Manual) Monocytes # (Manual) D-Dimer Heparin Anti-Xa Level ABG pH POC ABG pCO2 POC ABG pO2 ABG pO2 ABG HCO3 ABG O2 Saturation ABG Base Excess ABG Hemoglobin ABG Oxyhemoglobin ABG Sodium ABG Potassium ABG Chloride ABG Glucose VBG pH Oxyhemoglobin Carboxyhemoglobin Sodium 149 H Potassium 3.2 L Chloride Carbon Dioxide 37 H BUN 40 H Creatinine 2.0 H Glucose 124 H POC Glucose 128 H 113 H Lactic Acid Calcium Phosphorus Magnesium Total Bilirubin AST ALT Ammonia Lactate Dehydrogenase Total Creatine Kinase CK-MB (CK-2) Troponin T NT-Pro-B Natriuret Pep Total Protein Albumin Triglycerides TSH Arterial Blood Glucose Arterial Blood Ionized Calcium Urine pH Urine WBC (Auto) Urine Creatinine 10/15/20 10/15/20 10/15/20 04:22 11:39 17:36 WBC RBC Hgb Hct RDW Lymph % (Auto) [place] % (Auto) Eos % (Auto) Lymph # (Auto) [place] # (Auto) Eos # (Auto) Seg Neutrophils % Lymphocytes % (Manual) Monocytes % (Manual) Seg Neutrophils # Seg Neutrophils # Man Lymphocytes # (Manual) Monocytes # (Manual) D-Dimer Heparin Anti-Xa Level ABG pH POC ABG pCO2 POC ABG pO2 ABG pO2 115.0 H ABG HCO3 38.1 H ABG O2 Saturation ABG Base Excess 11.3 H ABG Hemoglobin 11.0 L ABG Oxyhemoglobin ABG Sodium ABG Potassium ABG Chloride ABG Glucose VBG pH Oxyhemoglobin Carboxyhemoglobin Sodium Potassium Chloride Carbon Dioxide BUN Creatinine Glucose POC Glucose 123 H 118 H Lactic Acid Calcium Phosphorus Magnesium Total Bilirubin AST ALT Ammonia Lactate Dehydrogenase Total Creatine Kinase CK-MB (CK-2) Troponin T NT-Pro-B Natriuret Pep Total Protein Albumin Triglycerides TSH Arterial Blood Glucose Arterial Blood Ionized Calcium Urine pH Urine WBC (Auto) Urine Creatinine 10/15/20 10/16/20 10/16/20 23:18 03:13 05:10 WBC RBC Hgb Hct RDW Lymph % (Auto) [place] % (Auto) Eos % (Auto) Lymph # (Auto) [place] # (Auto) Eos # (Auto) Seg Neutrophils % Lymphocytes % (Manual) Monocytes % (Manual) Seg Neutrophils # Seg Neutrophils # Man Lymphocytes # (Manual) Monocytes # (Manual) D-Dimer Heparin Anti-Xa Level ABG pH POC ABG pCO2 POC ABG pO2 ABG pO2 104.5 H ABG HCO3 35.1 H ABG O2 Saturation ABG Base Excess 9.5 H ABG Hemoglobin 7.9 L ABG Oxyhemoglobin ABG Sodium ABG Potassium ABG Chloride ABG Glucose VBG pH Oxyhemoglobin Carboxyhemoglobin Sodium Potassium 3.3 L Chloride Carbon Dioxide 33 H BUN 37 H Creatinine 1.4 H Glucose 148 H POC Glucose 135 H Lactic Acid Calcium Phosphorus Magnesium 2.40 H Total Bilirubin AST ALT Ammonia Lactate Dehydrogenase Total Creatine Kinase CK-MB (CK-2) Troponin T NT-Pro-B Natriuret Pep Total Protein Albumin Triglycerides TSH Arterial Blood Glucose Arterial Blood Ionized Calcium Urine pH Urine WBC (Auto) Urine Creatinine 10/16/20 10/16/20 10/16/20 06:36 11:08 17:07 WBC RBC Hgb Hct RDW Lymph % (Auto) [place] % (Auto) Eos % (Auto) Lymph # (Auto) [place] # (Auto) Eos # (Auto) Seg Neutrophils % Lymphocytes % (Manual) Monocytes % (Manual) Seg Neutrophils # Seg Neutrophils # Man Lymphocytes # (Manual) Monocytes # (Manual) D-Dimer Heparin Anti-Xa Level ABG pH POC ABG pCO2 POC ABG pO2 ABG pO2 ABG HCO3 ABG O2 Saturation ABG Base Excess ABG Hemoglobin ABG Oxyhemoglobin ABG Sodium ABG Potassium ABG Chloride ABG Glucose VBG pH Oxyhemoglobin Carboxyhemoglobin Sodium Potassium Chloride Carbon Dioxide BUN Creatinine Glucose POC Glucose 150 H 111 H 132 H Lactic Acid Calcium Phosphorus Magnesium Total Bilirubin AST ALT Ammonia Lactate Dehydrogenase Total Creatine Kinase CK-MB (CK-2) Troponin T NT-Pro-B Natriuret Pep Total Protein Albumin Triglycerides TSH Arterial Blood Glucose Arterial Blood Ionized Calcium Urine pH Urine WBC (Auto) Urine Creatinine 10/16/20 10/17/20 10/17/20 23:38 03:32 03:32 WBC RBC Hgb Hct RDW Lymph % (Auto) [place] % (Auto) Eos % (Auto) Lymph # (Auto) [place] # (Auto) Eos # (Auto) Seg Neutrophils % Lymphocytes % (Manual) Monocytes % (Manual) Seg Neutrophils # Seg Neutrophils # Man Lymphocytes # (Manual) Monocytes # (Manual) D-Dimer Heparin Anti-Xa Level ABG pH POC ABG pCO2 POC ABG pO2 ABG pO2 ABG HCO3 ABG O2 Saturation ABG Base Excess ABG Hemoglobin ABG Oxyhemoglobin ABG Sodium ABG Potassium ABG Chloride ABG Glucose VBG pH Oxyhemoglobin Carboxyhemoglobin Sodium 146 H Potassium Chloride Carbon Dioxide 32 H BUN 57 H Creatinine 2.4 H D Glucose 124 H POC Glucose 117 H Lactic Acid Calcium Phosphorus 5.20 H D Magnesium Total Bilirubin AST ALT Ammonia Lactate Dehydrogenase Total Creatine Kinase CK-MB (CK-2) Troponin T NT-Pro-B Natriuret Pep Total Protein Albumin Triglycerides TSH Arterial Blood Glucose Arterial Blood Ionized Calcium Urine pH Urine WBC (Auto) Urine Creatinine 10/17/20 10/17/20 10/18/20 05:10 17:33 00:13 WBC RBC Hgb Hct RDW Lymph % (Auto) [place] % (Auto) Eos % (Auto) Lymph # (Auto) [place] # (Auto) Eos # (Auto) Seg Neutrophils % Lymphocytes % (Manual) Monocytes % (Manual) Seg Neutrophils # Seg Neutrophils # Man Lymphocytes # (Manual) Monocytes # (Manual) D-Dimer Heparin Anti-Xa Level ABG pH POC ABG pCO2 POC ABG pO2 ABG pO2 ABG HCO3 ABG O2 Saturation ABG Base Excess ABG Hemoglobin ABG Oxyhemoglobin ABG Sodium ABG Potassium ABG Chloride ABG Glucose VBG pH Oxyhemoglobin Carboxyhemoglobin Sodium Potassium Chloride Carbon Dioxide BUN Creatinine Glucose POC Glucose 122 H 121 H 23 L Lactic Acid Calcium Phosphorus Magnesium Total Bilirubin AST ALT Ammonia Lactate Dehydrogenase Total Creatine Kinase CK-MB (CK-2) Troponin T NT-Pro-B Natriuret Pep Total Protein Albumin Triglycerides TSH Arterial Blood Glucose Arterial Blood Ionized Calcium Urine pH Urine WBC (Auto) Urine Creatinine 10/18/20 10/18/20 10/18/20 00:16 03:27 03:27 WBC RBC Hgb 11.7 L Hct RDW Lymph % (Auto) [place] % (Auto) Eos % (Auto) Lymph # (Auto) [place] # (Auto) Eos # (Auto) Seg Neutrophils % Lymphocytes % (Manual) Monocytes % (Manual) Seg Neutrophils # Seg Neutrophils # Man Lymphocytes # (Manual) Monocytes # (Manual) D-Dimer Heparin Anti-Xa Level ABG pH POC ABG pCO2 POC ABG pO2 ABG pO2 ABG HCO3 ABG O2 Saturation ABG Base Excess ABG Hemoglobin ABG Oxyhemoglobin ABG Sodium ABG Potassium ABG Chloride ABG Glucose VBG pH Oxyhemoglobin Carboxyhemoglobin Sodium Potassium Chloride 97.6 L Carbon Dioxide BUN 90 H Creatinine 3.3 H Glucose 146 H POC Glucose 134 H Lactic Acid Calcium Phosphorus Magnesium Total Bilirubin 1.70 H AST ALT Ammonia Lactate Dehydrogenase Total Creatine Kinase CK-MB (CK-2) Troponin T NT-Pro-B Natriuret Pep Total Protein Albumin 3.1 L Triglycerides TSH Arterial Blood Glucose Arterial Blood Ionized Calcium Urine pH Urine WBC (Auto) Urine Creatinine 10/18/20 10/18/20 10/18/20 05:09 11:19 17:15 WBC RBC Hgb Hct RDW Lymph % (Auto) [place] % (Auto) Eos % (Auto) Lymph # (Auto) [place] # (Auto) Eos # (Auto) Seg Neutrophils % Lymphocytes % (Manual) Monocytes % (Manual) Seg Neutrophils # Seg Neutrophils # Man Lymphocytes # (Manual) Monocytes # (Manual) D-Dimer Heparin Anti-Xa Level ABG pH POC ABG pCO2 POC ABG pO2 ABG pO2 ABG HCO3 ABG O2 Saturation ABG Base Excess ABG Hemoglobin ABG Oxyhemoglobin ABG Sodium ABG Potassium ABG Chloride ABG Glucose VBG pH Oxyhemoglobin Carboxyhemoglobin Sodium Potassium Chloride Carbon Dioxide BUN Creatinine Glucose POC Glucose 144 H 145 H 151 H Lactic Acid Calcium Phosphorus Magnesium Total Bilirubin AST ALT Ammonia Lactate Dehydrogenase Total Creatine Kinase CK-MB (CK-2) Troponin T NT-Pro-B Natriuret Pep Total Protein Albumin Triglycerides TSH Arterial Blood Glucose Arterial Blood Ionized Calcium Urine pH Urine WBC (Auto) Urine Creatinine 10/18/20 10/18/20 10/19/20 23:16 Unknown 04:55 WBC RBC Hgb Hct RDW Lymph % (Auto) [place] % (Auto) Eos % (Auto) Lymph # (Auto) [place] # (Auto) Eos # (Auto) Seg Neutrophils % Lymphocytes % (Manual) Monocytes % (Manual) Seg Neutrophils # Seg Neutrophils # Man Lymphocytes # (Manual) Monocytes # (Manual) D-Dimer Heparin Anti-Xa Level ABG pH POC ABG pCO2 POC ABG pO2 ABG pO2 ABG HCO3 ABG O2 Saturation ABG Base Excess ABG Hemoglobin ABG Oxyhemoglobin ABG Sodium ABG Potassium ABG Chloride ABG Glucose VBG pH Oxyhemoglobin Carboxyhemoglobin Sodium Potassium Chloride Carbon Dioxide BUN 104 H Creatinine 3.1 H Glucose 139 H POC Glucose 123 H Lactic Acid Calcium Phosphorus Magnesium Total Bilirubin AST ALT Ammonia Lactate Dehydrogenase Total Creatine Kinase CK-MB (CK-2) Troponin T NT-Pro-B Natriuret Pep Total Protein Albumin Triglycerides TSH Arterial Blood Glucose Arterial Blood Ionized Calcium Urine pH Urine WBC (Auto) 115.0 H Urine Creatinine 10/19/20 10/19/20 10/19/20 04:55 11:35 13:14 WBC 15.1 H RBC Hgb 11.1 L Hct 34.4 L RDW Lymph % (Auto) 4.2 L [place] % (Auto) 11.9 H Eos % (Auto) Lymph # (Auto) 0.6 L [place] # (Auto) 1.8 H Eos # (Auto) Seg Neutrophils % 82.0 H Lymphocytes % (Manual) Monocytes % (Manual) Seg Neutrophils # 12.4 H Seg Neutrophils # Man Lymphocytes # (Manual) Monocytes # (Manual) D-Dimer Heparin Anti-Xa Level ABG pH POC ABG pCO2 POC ABG pO2 ABG pO2 ABG HCO3 ABG O2 Saturation ABG Base Excess ABG Hemoglobin ABG Oxyhemoglobin ABG Sodium ABG Potassium ABG Chloride ABG Glucose VBG pH Oxyhemoglobin Carboxyhemoglobin Sodium Potassium Chloride Carbon Dioxide BUN Creatinine Glucose POC Glucose 136 H Lactic Acid Calcium Phosphorus Magnesium Total Bilirubin AST ALT Ammonia Lactate Dehydrogenase Total Creatine Kinase CK-MB (CK-2) Troponin T NT-Pro-B Natriuret Pep Total Protein Albumin Triglycerides TSH Arterial Blood Glucose Arterial Blood Ionized Calcium Urine pH Urine WBC (Auto) Urine Creatinine 93.7 H 10/19/20 10/19/20 10/20/20 17:53 23:39 04:30 WBC RBC Hgb Hct RDW Lymph % (Auto) [place] % (Auto) Eos % (Auto) Lymph # (Auto) [place] # (Auto) Eos # (Auto) Seg Neutrophils % Lymphocytes % (Manual) Monocytes % (Manual) Seg Neutrophils # Seg Neutrophils # Man Lymphocytes # (Manual) Monocytes # (Manual) D-Dimer Heparin Anti-Xa Level ABG pH POC ABG pCO2 POC ABG pO2 ABG pO2 ABG HCO3 ABG O2 Saturation ABG Base Excess ABG Hemoglobin ABG Oxyhemoglobin ABG Sodium ABG Potassium ABG Chloride ABG Glucose VBG pH Oxyhemoglobin Carboxyhemoglobin Sodium Potassium Chloride Carbon Dioxide BUN 104 H Creatinine 2.8 H Glucose 151 H POC Glucose 137 H 133 H Lactic Acid Calcium Phosphorus Magnesium Total Bilirubin AST ALT Ammonia Lactate Dehydrogenase Total Creatine Kinase CK-MB (CK-2) Troponin T NT-Pro-B Natriuret Pep Total Protein Albumin Triglycerides TSH Arterial Blood Glucose Arterial Blood Ionized Calcium Urine pH Urine WBC (Auto) Urine Creatinine 10/20/20 10/20/20 10/20/20 04:30 05:38 11:34 WBC 17.9 H RBC Hgb 11.7 L Hct RDW Lymph % (Auto) [place] % (Auto) Eos % (Auto) Lymph # (Auto) [place] # (Auto) Eos # (Auto) Seg Neutrophils % Lymphocytes % (Manual) Monocytes % (Manual) Seg Neutrophils # Seg Neutrophils # Man Lymphocytes # (Manual) Monocytes # (Manual) D-Dimer Heparin Anti-Xa Level ABG pH POC ABG pCO2 POC ABG pO2 ABG pO2 ABG HCO3 ABG O2 Saturation ABG Base Excess ABG Hemoglobin ABG Oxyhemoglobin ABG Sodium ABG Potassium ABG Chloride ABG Glucose VBG pH Oxyhemoglobin Carboxyhemoglobin Sodium Potassium Chloride Carbon Dioxide BUN Creatinine Glucose POC Glucose 164 H 148 H Lactic Acid Calcium Phosphorus Magnesium Total Bilirubin AST ALT Ammonia Lactate Dehydrogenase Total Creatine Kinase CK-MB (CK-2) Troponin T NT-Pro-B Natriuret Pep Total Protein Albumin Triglycerides TSH Arterial Blood Glucose Arterial Blood Ionized Calcium Urine pH Urine WBC (Auto) Urine Creatinine 10/20/20 10/20/20 10/20/20 17:40 20:20 23:29 WBC RBC Hgb Hct RDW Lymph % (Auto) [place] % (Auto) Eos % (Auto) Lymph # (Auto) [place] # (Auto) Eos # (Auto) Seg Neutrophils % Lymphocytes % (Manual) Monocytes % (Manual) Seg Neutrophils # Seg Neutrophils # Man Lymphocytes # (Manual) Monocytes # (Manual) D-Dimer Heparin Anti-Xa Level ABG pH 7.292 L POC ABG pCO2 68.5 H POC ABG pO2 ABG pO2 ABG HCO3 ABG O2 Saturation ABG Base Excess ABG Hemoglobin 11.6 L ABG Oxyhemoglobin ABG Sodium ABG Potassium ABG Chloride ABG Glucose 145 H VBG pH Oxyhemoglobin Carboxyhemoglobin Sodium Potassium Chloride Carbon Dioxide BUN Creatinine Glucose POC Glucose 130 H 136 H Lactic Acid Calcium Phosphorus Magnesium Total Bilirubin AST ALT Ammonia Lactate Dehydrogenase Total Creatine Kinase CK-MB (CK-2) Troponin T NT-Pro-B Natriuret Pep Total Protein Albumin Triglycerides TSH Arterial Blood Glucose 145 H Arterial Blood Ionized Calcium Urine pH Urine WBC (Auto) Urine Creatinine 10/21/20 10/21/20 10/21/20 04:20 06:26 06:30 WBC RBC Hgb Hct RDW Lymph % (Auto) [place] % (Auto) Eos % (Auto) Lymph # (Auto) [place] # (Auto) Eos # (Auto) Seg Neutrophils % Lymphocytes % (Manual) Monocytes % (Manual) Seg Neutrophils # Seg Neutrophils # Man Lymphocytes # (Manual) Monocytes # (Manual) D-Dimer Heparin Anti-Xa Level ABG pH 7.262 L POC ABG pCO2 72.4 H POC ABG pO2 81.6 L ABG pO2 ABG HCO3 ABG O2 Saturation ABG Base Excess ABG Hemoglobin 11.6 L ABG Oxyhemoglobin ABG Sodium ABG Potassium ABG Chloride ABG Glucose 140 H VBG pH Oxyhemoglobin Carboxyhemoglobin Sodium Potassium Chloride Carbon Dioxide 33 H BUN 104 H Creatinine 2.9 H Glucose 153 H POC Glucose 128 H Lactic Acid Calcium Phosphorus Magnesium Total Bilirubin AST ALT Ammonia Lactate Dehydrogenase Total Creatine Kinase CK-MB (CK-2) Troponin T NT-Pro-B Natriuret Pep Total Protein Albumin Triglycerides TSH Arterial Blood Glucose 140 H Arterial Blood Ionized Calcium Urine pH Urine WBC (Auto) Urine Creatinine 10/21/20 10/21/20 10/21/20 06:30 11:24 17:21 WBC 13.3 H RBC Hgb 10.7 L Hct 32.7 L RDW Lymph % (Auto) [place] % (Auto) Eos % (Auto) Lymph # (Auto) [place] # (Auto) Eos # (Auto) Seg Neutrophils % Lymphocytes % (Manual) Monocytes % (Manual) Seg Neutrophils # Seg Neutrophils # Man Lymphocytes # (Manual) Monocytes # (Manual) D-Dimer Heparin Anti-Xa Level ABG pH POC ABG pCO2 POC ABG pO2 ABG pO2 ABG HCO3 ABG O2 Saturation ABG Base Excess ABG Hemoglobin ABG Oxyhemoglobin ABG Sodium ABG Potassium ABG Chloride ABG Glucose VBG pH Oxyhemoglobin Carboxyhemoglobin Sodium Potassium Chloride Carbon Dioxide BUN Creatinine Glucose POC Glucose 178 H 138 H Lactic Acid Calcium Phosphorus Magnesium Total Bilirubin AST ALT Ammonia Lactate Dehydrogenase Total Creatine Kinase CK-MB (CK-2) Troponin T NT-Pro-B Natriuret Pep Total Protein Albumin Triglycerides TSH Arterial Blood Glucose Arterial Blood Ionized Calcium Urine pH Urine WBC (Auto) Urine Creatinine 10/22/20 10/22/20 10/22/20 00:05 04:30 06:15 WBC RBC Hgb Hct RDW Lymph % (Auto) [place] % (Auto) Eos % (Auto) Lymph # (Auto) [place] # (Auto) Eos # (Auto) Seg Neutrophils % Lymphocytes % (Manual) Monocytes % (Manual) Seg Neutrophils # Seg Neutrophils # Man Lymphocytes # (Manual) Monocytes # (Manual) D-Dimer Heparin Anti-Xa Level ABG pH 7.225 L POC ABG pCO2 76.6 H POC ABG pO2 ABG pO2 ABG HCO3 ABG O2 Saturation ABG Base Excess ABG Hemoglobin 11.1 L ABG Oxyhemoglobin ABG Sodium ABG Potassium ABG Chloride ABG Glucose 151 H VBG pH Oxyhemoglobin Carboxyhemoglobin Sodium Potassium Chloride Carbon Dioxide 32 H BUN 103 H Creatinine 2.7 H Glucose 151 H POC Glucose 135 H Lactic Acid Calcium Phosphorus Magnesium Total Bilirubin AST ALT Ammonia Lactate Dehydrogenase Total Creatine Kinase CK-MB (CK-2) Troponin T NT-Pro-B Natriuret Pep Total Protein Albumin Triglycerides TSH Arterial Blood Glucose 151 H Arterial Blood Ionized Calcium Urine pH Urine WBC (Auto) Urine Creatinine 10/22/20 10/22/20 10/22/20 06:18 11:34 11:44 WBC RBC Hgb Hct RDW Lymph % (Auto) [place] % (Auto) Eos % (Auto) Lymph # (Auto) [place] # (Auto) Eos # (Auto) Seg Neutrophils % Lymphocytes % (Manual) Monocytes % (Manual) Seg Neutrophils # Seg Neutrophils # Man Lymphocytes # (Manual) Monocytes # (Manual) D-Dimer Heparin Anti-Xa Level ABG pH 7.278 L POC ABG pCO2 67.8 H POC ABG pO2 ABG pO2 ABG HCO3 ABG O2 Saturation ABG Base Excess ABG Hemoglobin 10.2 L ABG Oxyhemoglobin ABG Sodium ABG Potassium ABG Chloride ABG Glucose 172 H VBG pH Oxyhemoglobin Carboxyhemoglobin Sodium Potassium Chloride Carbon Dioxide BUN Creatinine Glucose POC Glucose 137 H 147 H Lactic Acid Calcium Phosphorus Magnesium Total Bilirubin AST ALT Ammonia Lactate Dehydrogenase Total Creatine Kinase CK-MB (CK-2) Troponin T NT-Pro-B Natriuret Pep Total Protein Albumin Triglycerides TSH Arterial Blood Glucose 172 H Arterial Blood Ionized Calcium Urine pH Urine WBC (Auto) Urine Creatinine 10/22/20 10/22/20 10/23/20 17:40 23:55 05:11 WBC RBC Hgb Hct RDW Lymph % (Auto) [place] % (Auto) Eos % (Auto) Lymph # (Auto) [place] # (Auto) Eos # (Auto) Seg Neutrophils % Lymphocytes % (Manual) Monocytes % (Manual) Seg Neutrophils # Seg Neutrophils # Man Lymphocytes # (Manual) Monocytes # (Manual) D-Dimer Heparin Anti-Xa Level ABG pH POC ABG pCO2 63.6 H POC ABG pO2 81.2 L ABG pO2 ABG HCO3 ABG O2 Saturation ABG Base Excess ABG Hemoglobin 10.6 L ABG Oxyhemoglobin ABG Sodium ABG Potassium ABG Chloride 109.0 H ABG Glucose 149 H VBG pH Oxyhemoglobin Carboxyhemoglobin Sodium Potassium Chloride Carbon Dioxide BUN Creatinine Glucose POC Glucose 141 H 139 H Lactic Acid Calcium Phosphorus Magnesium Total Bilirubin AST ALT Ammonia Lactate Dehydrogenase Total Creatine Kinase CK-MB (CK-2) Troponin T NT-Pro-B Natriuret Pep Total Protein Albumin Triglycerides TSH Arterial Blood Glucose 149 H Arterial Blood Ionized Calcium Urine pH Urine WBC (Auto) Urine Creatinine 10/23/20 10/23/20 10/23/20 05:39 06:00 11:32 WBC RBC Hgb Hct RDW Lymph % (Auto) [place] % (Auto) Eos % (Auto) Lymph # (Auto) [place] # (Auto) Eos # (Auto) Seg Neutrophils % Lymphocytes % (Manual) Monocytes % (Manual) Seg Neutrophils # Seg Neutrophils # Man Lymphocytes # (Manual) Monocytes # (Manual) D-Dimer Heparin Anti-Xa Level ABG pH POC ABG pCO2 POC ABG pO2 ABG pO2 ABG HCO3 ABG O2 Saturation ABG Base Excess ABG Hemoglobin ABG Oxyhemoglobin ABG Sodium ABG Potassium ABG Chloride ABG Glucose VBG pH Oxyhemoglobin Carboxyhemoglobin Sodium 146 H Potassium Chloride Carbon Dioxide 35 H BUN 92 H Creatinine 2.0 H Glucose 144 H POC Glucose 139 H 176 H Lactic Acid Calcium Phosphorus Magnesium Total Bilirubin AST ALT Ammonia Lactate Dehydrogenase Total Creatine Kinase CK-MB (CK-2) Troponin T NT-Pro-B Natriuret Pep Total Protein Albumin Triglycerides TSH Arterial Blood Glucose Arterial Blood Ionized Calcium Urine pH Urine WBC (Auto) Urine Creatinine 10/23/20 10/23/20 10/24/20 11:34 17:55 05:33 WBC RBC Hgb Hct RDW Lymph % (Auto) [place] % (Auto) Eos % (Auto) Lymph # (Auto) [place] # (Auto) Eos # (Auto) Seg Neutrophils % Lymphocytes % (Manual) Monocytes % (Manual) Seg Neutrophils # Seg Neutrophils # Man Lymphocytes # (Manual) Monocytes # (Manual) D-Dimer Heparin Anti-Xa Level ABG pH POC ABG pCO2 POC ABG pO2 ABG pO2 ABG HCO3 ABG O2 Saturation ABG Base Excess ABG Hemoglobin ABG Oxyhemoglobin ABG Sodium ABG Potassium ABG Chloride ABG Glucose VBG pH Oxyhemoglobin Carboxyhemoglobin Sodium 147 H Potassium Chloride Carbon Dioxide 32 H BUN 76 H Creatinine 1.7 H Glucose 172 H POC Glucose 173 H 135 H Lactic Acid Calcium Phosphorus Magnesium Total Bilirubin AST ALT Ammonia Lactate Dehydrogenase Total Creatine Kinase CK-MB (CK-2) Troponin T NT-Pro-B Natriuret Pep Total Protein Albumin Triglycerides TSH Arterial Blood Glucose Arterial Blood Ionized Calcium Urine pH Urine WBC (Auto) Urine Creatinine 10/24/20 10/24/20 10/24/20 05:41 12:09 18:09 WBC RBC Hgb Hct RDW Lymph % (Auto) [place] % (Auto) Eos % (Auto) Lymph # (Auto) [place] # (Auto) Eos # (Auto) Seg Neutrophils % Lymphocytes % (Manual) Monocytes % (Manual) Seg Neutrophils # Seg Neutrophils # Man Lymphocytes # (Manual) Monocytes # (Manual) D-Dimer Heparin Anti-Xa Level ABG pH POC ABG pCO2 POC ABG pO2 ABG pO2 ABG HCO3 ABG O2 Saturation ABG Base Excess ABG Hemoglobin ABG Oxyhemoglobin ABG Sodium ABG Potassium ABG Chloride ABG Glucose VBG pH Oxyhemoglobin Carboxyhemoglobin Sodium Potassium Chloride Carbon Dioxide BUN Creatinine Glucose POC Glucose 156 H 154 H 132 H Lactic Acid Calcium Phosphorus Magnesium Total Bilirubin AST ALT Ammonia Lactate Dehydrogenase Total Creatine Kinase CK-MB (CK-2) Troponin T NT-Pro-B Natriuret Pep Total Protein Albumin Triglycerides TSH Arterial Blood Glucose Arterial Blood Ionized Calcium Urine pH Urine WBC (Auto) Urine Creatinine 10/24/20 10/25/20 10/25/20 23:39 05:29 08:55 WBC RBC Hgb Hct RDW Lymph % (Auto) [place] % (Auto) Eos % (Auto) Lymph # (Auto) [place] # (Auto) Eos # (Auto) Seg Neutrophils % Lymphocytes % (Manual) Monocytes % (Manual) Seg Neutrophils # Seg Neutrophils # Man Lymphocytes # (Manual) Monocytes # (Manual) D-Dimer Heparin Anti-Xa Level ABG pH POC ABG pCO2 POC ABG pO2 ABG pO2 ABG HCO3 ABG O2 Saturation ABG Base Excess ABG Hemoglobin ABG Oxyhemoglobin ABG Sodium ABG Potassium ABG Chloride ABG Glucose VBG pH Oxyhemoglobin Carboxyhemoglobin Sodium 150 H Potassium Chloride 108.3 H Carbon Dioxide 32 H BUN 57 H Creatinine 1.5 H Glucose 142 H POC Glucose 131 H 142 H Lactic Acid Calcium Phosphorus Magnesium Total Bilirubin AST ALT Ammonia Lactate Dehydrogenase Total Creatine Kinase CK-MB (CK-2) Troponin T NT-Pro-B Natriuret Pep Total Protein Albumin Triglycerides TSH Arterial Blood Glucose Arterial Blood Ionized Calcium Urine pH Urine WBC (Auto) Urine Creatinine 10/25/20 10/25/20 10/25/20 08:55 11:08 18:10 WBC 14.3 H RBC 3.57 L Hgb 10.3 L Hct 31.6 L RDW Lymph % (Auto) [place] % (Auto) Eos % (Auto) Lymph # (Auto) [place] # (Auto) Eos # (Auto) Seg Neutrophils % Lymphocytes % (Manual) Monocytes % (Manual) Seg Neutrophils # Seg Neutrophils # Man Lymphocytes # (Manual) Monocytes # (Manual) D-Dimer Heparin Anti-Xa Level ABG pH POC ABG pCO2 52.3 H POC ABG pO2 ABG pO2 ABG HCO3 ABG O2 Saturation ABG Base Excess ABG Hemoglobin 11.2 L ABG Oxyhemoglobin ABG Sodium ABG Potassium ABG Chloride 108.0 H ABG Glucose 167 H VBG pH Oxyhemoglobin Carboxyhemoglobin Sodium Potassium Chloride Carbon Dioxide BUN Creatinine Glucose POC Glucose 157 H Lactic Acid Calcium Phosphorus Magnesium Total Bilirubin AST ALT Ammonia Lactate Dehydrogenase Total Creatine Kinase CK-MB (CK-2) Troponin T NT-Pro-B Natriuret Pep Total Protein Albumin Triglycerides TSH Arterial Blood Glucose 167 H Arterial Blood Ionized Calcium Urine pH Urine WBC (Auto) Urine Creatinine 10/25/20 10/26/20 10/26/20 18:20 00:20 06:08 WBC RBC Hgb Hct RDW Lymph % (Auto) [place] % (Auto) Eos % (Auto) Lymph # (Auto) [place] # (Auto) Eos # (Auto) Seg Neutrophils % Lymphocytes % (Manual) Monocytes % (Manual) Seg Neutrophils # Seg Neutrophils # Man Lymphocytes # (Manual) Monocytes # (Manual) D-Dimer Heparin Anti-Xa Level ABG pH POC ABG pCO2 POC ABG pO2 ABG pO2 ABG HCO3 ABG O2 Saturation ABG Base Excess ABG Hemoglobin ABG Oxyhemoglobin ABG Sodium ABG Potassium ABG Chloride ABG Glucose VBG pH Oxyhemoglobin Carboxyhemoglobin Sodium Potassium Chloride Carbon Dioxide BUN Creatinine Glucose POC Glucose 127 H 108 H 119 H Lactic Acid Calcium Phosphorus Magnesium Total Bilirubin AST ALT Ammonia Lactate Dehydrogenase Total Creatine Kinase CK-MB (CK-2) Troponin T NT-Pro-B Natriuret Pep Total Protein Albumin Triglycerides TSH Arterial Blood Glucose Arterial Blood Ionized Calcium Urine pH Urine WBC (Auto) Urine Creatinine 10/26/20 10/26/20 10/26/20 07:38 07:38 11:28 WBC 13.5 H RBC 3.37 L Hgb 9.8 L Hct 30.0 L RDW Lymph % (Auto) [place] % (Auto) Eos % (Auto) Lymph # (Auto) [place] # (Auto) Eos # (Auto) Seg Neutrophils % Lymphocytes % (Manual) Monocytes % (Manual) Seg Neutrophils # Seg Neutrophils # Man Lymphocytes # (Manual) Monocytes # (Manual) D-Dimer Heparin Anti-Xa Level ABG pH POC ABG pCO2 POC ABG pO2 ABG pO2 ABG HCO3 ABG O2 Saturation ABG Base Excess ABG Hemoglobin ABG Oxyhemoglobin ABG Sodium ABG Potassium ABG Chloride ABG Glucose VBG pH Oxyhemoglobin Carboxyhemoglobin Sodium 149 H Potassium Chloride 107.6 H Carbon Dioxide 34 H BUN 49 H Creatinine 1.4 H Glucose 137 H POC Glucose 148 H Lactic Acid Calcium Phosphorus Magnesium Total Bilirubin AST ALT Ammonia Lactate Dehydrogenase Total Creatine Kinase CK-MB (CK-2) Troponin T NT-Pro-B Natriuret Pep Total Protein Albumin Triglycerides TSH Arterial Blood Glucose Arterial Blood Ionized Calcium Urine pH Urine WBC (Auto) Urine Creatinine 10/26/20 10/26/20 10/27/20 18:17 23:37 05:08 WBC RBC Hgb Hct RDW Lymph % (Auto) [place] % (Auto) Eos % (Auto) Lymph # (Auto) [place] # (Auto) Eos # (Auto) Seg Neutrophils % Lymphocytes % (Manual) Monocytes % (Manual) Seg Neutrophils # Seg Neutrophils # Man Lymphocytes # (Manual) Monocytes # (Manual) D-Dimer Heparin Anti-Xa Level ABG pH POC ABG pCO2 POC ABG pO2 ABG pO2 ABG HCO3 ABG O2 Saturation ABG Base Excess ABG Hemoglobin ABG Oxyhemoglobin ABG Sodium ABG Potassium ABG Chloride ABG Glucose VBG pH Oxyhemoglobin Carboxyhemoglobin Sodium Potassium Chloride Carbon Dioxide BUN Creatinine Glucose POC Glucose 121 H 152 H 120 H Lactic Acid Calcium Phosphorus Magnesium Total Bilirubin AST ALT Ammonia Lactate Dehydrogenase Total Creatine Kinase CK-MB (CK-2) Troponin T NT-Pro-B Natriuret Pep Total Protein Albumin Triglycerides TSH Arterial Blood Glucose Arterial Blood Ionized Calcium Urine pH Urine WBC (Auto) Urine Creatinine 10/27/20 10/27/20 10/27/20 07:30 07:30 11:59 WBC RBC 3.46 L Hgb 10.2 L Hct 30.9 L RDW Lymph % (Auto) [place] % (Auto) Eos % (Auto) Lymph # (Auto) [place] # (Auto) Eos # (Auto) Seg Neutrophils % Lymphocytes % (Manual) Monocytes % (Manual) Seg Neutrophils # Seg Neutrophils # Man Lymphocytes # (Manual) Monocytes # (Manual) D-Dimer Heparin Anti-Xa Level ABG pH POC ABG pCO2 POC ABG pO2 ABG pO2 ABG HCO3 ABG O2 Saturation ABG Base Excess ABG Hemoglobin ABG Oxyhemoglobin ABG Sodium ABG Potassium ABG Chloride ABG Glucose VBG pH Oxyhemoglobin Carboxyhemoglobin Sodium 146 H Potassium Chloride Carbon Dioxide 34 H BUN 45 H Creatinine Glucose 131 H POC Glucose 143 H Lactic Acid Calcium Phosphorus Magnesium Total Bilirubin AST ALT Ammonia Lactate Dehydrogenase Total Creatine Kinase CK-MB (CK-2) Troponin T NT-Pro-B Natriuret Pep Total Protein Albumin Triglycerides TSH Arterial Blood Glucose Arterial Blood Ionized Calcium Urine pH Urine WBC (Auto) Urine Creatinine 10/27/20 10/27/20 10/28/20 18:52 23:03 07:00 WBC RBC Hgb Hct RDW Lymph % (Auto) [place] % (Auto) Eos % (Auto) Lymph # (Auto) [place] # (Auto) Eos # (Auto) Seg Neutrophils % Lymphocytes % (Manual) Monocytes % (Manual) Seg Neutrophils # Seg Neutrophils # Man Lymphocytes # (Manual) Monocytes # (Manual) D-Dimer Heparin Anti-Xa Level ABG pH POC ABG pCO2 POC ABG pO2 ABG pO2 ABG HCO3 ABG O2 Saturation ABG Base Excess ABG Hemoglobin ABG Oxyhemoglobin ABG Sodium ABG Potassium ABG Chloride ABG Glucose VBG pH Oxyhemoglobin Carboxyhemoglobin Sodium 147 H Potassium Chloride Carbon Dioxide 35 H BUN 39 H Creatinine Glucose 133 H POC Glucose 119 H 158 H Lactic Acid Calcium Phosphorus Magnesium Total Bilirubin AST ALT Ammonia Lactate Dehydrogenase Total Creatine Kinase CK-MB (CK-2) Troponin T NT-Pro-B Natriuret Pep Total Protein Albumin Triglycerides TSH Arterial Blood Glucose Arterial Blood Ionized Calcium Urine pH Urine WBC (Auto) Urine Creatinine 10/28/20 10/28/20 10/28/20 09:00 11:47 17:15 WBC 12.5 H RBC 3.58 L Hgb 10.5 L Hct 32.1 L RDW Lymph % (Auto) [place] % (Auto) Eos % (Auto) Lymph # (Auto) [place] # (Auto) Eos # (Auto) Seg Neutrophils % Lymphocytes % (Manual) Monocytes % (Manual) Seg Neutrophils # Seg Neutrophils # Man Lymphocytes # (Manual) Monocytes # (Manual) D-Dimer Heparin Anti-Xa Level ABG pH POC ABG pCO2 POC ABG pO2 ABG pO2 ABG HCO3 ABG O2 Saturation ABG Base Excess ABG Hemoglobin ABG Oxyhemoglobin ABG Sodium ABG Potassium ABG Chloride ABG Glucose VBG pH Oxyhemoglobin Carboxyhemoglobin Sodium Potassium Chloride Carbon Dioxide BUN Creatinine Glucose POC Glucose 129 H 109 H Lactic Acid Calcium Phosphorus Magnesium Total Bilirubin AST ALT Ammonia Lactate Dehydrogenase Total Creatine Kinase CK-MB (CK-2) Troponin T NT-Pro-B Natriuret Pep Total Protein Albumin Triglycerides TSH Arterial Blood Glucose Arterial Blood Ionized Calcium Urine pH Urine WBC (Auto) Urine Creatinine 10/28/20 10/29/20 10/29/20 23:31 04:23 04:23 WBC 13.6 H RBC 3.47 L Hgb 10.5 L Hct 30.7 L RDW 15.4 H Lymph % (Auto) [place] % (Auto) Eos % (Auto) Lymph # (Auto) [place] # (Auto) Eos # (Auto) Seg Neutrophils % Lymphocytes % (Manual) Monocytes % (Manual) Seg Neutrophils # Seg Neutrophils # Man Lymphocytes # (Manual) Monocytes # (Manual) D-Dimer Heparin Anti-Xa Level ABG pH POC ABG pCO2 POC ABG pO2 ABG pO2 ABG HCO3 ABG O2 Saturation ABG Base Excess ABG Hemoglobin ABG Oxyhemoglobin ABG Sodium ABG Potassium ABG Chloride ABG Glucose VBG pH Oxyhemoglobin Carboxyhemoglobin Sodium Potassium Chloride Carbon Dioxide 35 H BUN 34 H Creatinine Glucose 107 H POC Glucose 138 H Lactic Acid Calcium Phosphorus Magnesium Total Bilirubin AST ALT Ammonia Lactate Dehydrogenase Total Creatine Kinase CK-MB (CK-2) Troponin T NT-Pro-B Natriuret Pep Total Protein Albumin Triglycerides TSH Arterial Blood Glucose Arterial Blood Ionized Calcium Urine pH Urine WBC (Auto) Urine Creatinine 10/29/20 10/29/20 10/29/20 05:21 11:49 23:19 WBC RBC Hgb Hct RDW Lymph % (Auto) [place] % (Auto) Eos % (Auto) Lymph # (Auto) [place] # (Auto) Eos # (Auto) Seg Neutrophils % Lymphocytes % (Manual) Monocytes % (Manual) Seg Neutrophils # Seg Neutrophils # Man Lymphocytes # (Manual) Monocytes # (Manual) D-Dimer Heparin Anti-Xa Level ABG pH POC ABG pCO2 POC ABG pO2 ABG pO2 ABG HCO3 ABG O2 Saturation ABG Base Excess ABG Hemoglobin ABG Oxyhemoglobin ABG Sodium ABG Potassium ABG Chloride ABG Glucose VBG pH Oxyhemoglobin Carboxyhemoglobin Sodium Potassium Chloride Carbon Dioxide BUN Creatinine Glucose POC Glucose 115 H 124 H 129 H Lactic Acid Calcium Phosphorus Magnesium Total Bilirubin AST ALT Ammonia Lactate Dehydrogenase Total Creatine Kinase CK-MB (CK-2) Troponin T NT-Pro-B Natriuret Pep Total Protein Albumin Triglycerides TSH Arterial Blood Glucose Arterial Blood Ionized Calcium Urine pH Urine WBC (Auto) Urine Creatinine 10/30/20 10/30/20 10/30/20 04:59 05:10 11:52 WBC RBC Hgb Hct RDW Lymph % (Auto) [place] % (Auto) Eos % (Auto) Lymph # (Auto) [place] # (Auto) Eos # (Auto) Seg Neutrophils % Lymphocytes % (Manual) Monocytes % (Manual) Seg Neutrophils # Seg Neutrophils # Man Lymphocytes # (Manual) Monocytes # (Manual) D-Dimer Heparin Anti-Xa Level ABG pH POC ABG pCO2 POC ABG pO2 ABG pO2 ABG HCO3 ABG O2 Saturation ABG Base Excess ABG Hemoglobin ABG Oxyhemoglobin ABG Sodium ABG Potassium ABG Chloride ABG Glucose VBG pH Oxyhemoglobin Carboxyhemoglobin Sodium Potassium Chloride Carbon Dioxide 34 H BUN 33 H Creatinine Glucose 128 H POC Glucose 126 H 132 H Lactic Acid Calcium Phosphorus Magnesium Total Bilirubin AST ALT Ammonia Lactate Dehydrogenase Total Creatine Kinase CK-MB (CK-2) Troponin T NT-Pro-B Natriuret Pep Total Protein Albumin Triglycerides TSH Arterial Blood Glucose Arterial Blood Ionized Calcium Urine pH Urine WBC (Auto) Urine Creatinine 10/30/20 10/30/20 10/31/20 16:59 23:19 04:00 WBC RBC Hgb Hct RDW Lymph % (Auto) [place] % (Auto) Eos % (Auto) Lymph # (Auto) [place] # (Auto) Eos # (Auto) Seg Neutrophils % Lymphocytes % (Manual) Monocytes % (Manual) Seg Neutrophils # Seg Neutrophils # Man Lymphocytes # (Manual) Monocytes # (Manual) D-Dimer Heparin Anti-Xa Level ABG pH POC ABG pCO2 POC ABG pO2 ABG pO2 ABG HCO3 ABG O2 Saturation ABG Base Excess ABG Hemoglobin ABG Oxyhemoglobin ABG Sodium ABG Potassium ABG Chloride ABG Glucose VBG pH Oxyhemoglobin Carboxyhemoglobin Sodium Potassium Chloride Carbon Dioxide 38 H BUN 32 H Creatinine Glucose 121 H POC Glucose 118 H 138 H Lactic Acid Calcium Phosphorus Magnesium Total Bilirubin AST ALT Ammonia Lactate Dehydrogenase Total Creatine Kinase CK-MB (CK-2) Troponin T NT-Pro-B Natriuret Pep Total Protein Albumin Triglycerides TSH Arterial Blood Glucose Arterial Blood Ionized Calcium Urine pH Urine WBC (Auto) Urine Creatinine 10/31/20 10/31/20 10/31/20 05:13 11:09 16:17 WBC RBC Hgb Hct RDW Lymph % (Auto) [place] % (Auto) Eos % (Auto) Lymph # (Auto) [place] # (Auto) Eos # (Auto) Seg Neutrophils % Lymphocytes % (Manual) Monocytes % (Manual) Seg Neutrophils # Seg Neutrophils # Man Lymphocytes # (Manual) Monocytes # (Manual) D-Dimer Heparin Anti-Xa Level ABG pH POC ABG pCO2 71.1 H POC ABG pO2 67.4 L ABG pO2 ABG HCO3 ABG O2 Saturation ABG Base Excess ABG Hemoglobin 10.9 L ABG Oxyhemoglobin 90.7 L ABG Sodium ABG Potassium ABG Chloride ABG Glucose 134 H VBG pH Oxyhemoglobin Carboxyhemoglobin Sodium Potassium Chloride Carbon Dioxide BUN Creatinine Glucose POC Glucose 110 H 138 H Lactic Acid Calcium Phosphorus Magnesium Total Bilirubin AST ALT Ammonia Lactate Dehydrogenase Total Creatine Kinase CK-MB (CK-2) Troponin T NT-Pro-B Natriuret Pep Total Protein Albumin Triglycerides TSH Arterial Blood Glucose 134 H Arterial Blood Ionized Calcium Urine pH Urine WBC (Auto) Urine Creatinine 10/31/20 10/31/20 11/01/20 18:16 23:56 04:09 WBC 11.3 H RBC 3.05 L Hgb 9.0 L Hct 27.3 L RDW Lymph % (Auto) [place] % (Auto) Eos % (Auto) Lymph # (Auto) [place] # (Auto) Eos # (Auto) Seg Neutrophils % Lymphocytes % (Manual) Monocytes % (Manual) Seg Neutrophils # Seg Neutrophils # Man Lymphocytes # (Manual) Monocytes # (Manual) D-Dimer Heparin Anti-Xa Level ABG pH POC ABG pCO2 POC ABG pO2 ABG pO2 ABG HCO3 ABG O2 Saturation ABG Base Excess ABG Hemoglobin ABG Oxyhemoglobin ABG Sodium ABG Potassium ABG Chloride ABG Glucose VBG pH Oxyhemoglobin Carboxyhemoglobin Sodium Potassium Chloride Carbon Dioxide BUN Creatinine Glucose POC Glucose 135 H 122 H Lactic Acid Calcium Phosphorus Magnesium Total Bilirubin AST ALT Ammonia Lactate Dehydrogenase Total Creatine Kinase CK-MB (CK-2) Troponin T NT-Pro-B Natriuret Pep Total Protein Albumin Triglycerides TSH Arterial Blood Glucose Arterial Blood Ionized Calcium Urine pH Urine WBC (Auto) Urine Creatinine 11/01/20 11/01/20 11/01/20 05:10 11:51 17:17 WBC RBC Hgb Hct RDW Lymph % (Auto) [place] % (Auto) Eos % (Auto) Lymph # (Auto) [place] # (Auto) Eos # (Auto) Seg Neutrophils % Lymphocytes % (Manual) Monocytes % (Manual) Seg Neutrophils # Seg Neutrophils # Man Lymphocytes # (Manual) Monocytes # (Manual) D-Dimer Heparin Anti-Xa Level ABG pH POC ABG pCO2 POC ABG pO2 ABG pO2 ABG HCO3 ABG O2 Saturation ABG Base Excess ABG Hemoglobin ABG Oxyhemoglobin ABG Sodium ABG Potassium ABG Chloride ABG Glucose VBG pH Oxyhemoglobin Carboxyhemoglobin Sodium Potassium Chloride Carbon Dioxide BUN Creatinine Glucose POC Glucose 123 H 123 H 120 H Lactic Acid Calcium Phosphorus Magnesium Total Bilirubin AST ALT Ammonia Lactate Dehydrogenase Total Creatine Kinase CK-MB (CK-2) Troponin T NT-Pro-B Natriuret Pep Total Protein Albumin Triglycerides TSH Arterial Blood Glucose Arterial Blood Ionized Calcium Urine pH Urine WBC (Auto) Urine Creatinine 11/02/20 11/02/20 11/02/20 03:14 05:37 05:37 WBC RBC Hgb 9.8 L Hct 29.5 L RDW Lymph % (Auto) [place] % (Auto) Eos % (Auto) Lymph # (Auto) [place] # (Auto) Eos # (Auto) Seg Neutrophils % Lymphocytes % (Manual) Monocytes % (Manual) Seg Neutrophils # Seg Neutrophils # Man Lymphocytes # (Manual) Monocytes # (Manual) D-Dimer Heparin Anti-Xa Level ABG pH POC ABG pCO2 58.9 H POC ABG pO2 79.9 L ABG pO2 ABG HCO3 ABG O2 Saturation ABG Base Excess ABG Hemoglobin 10.6 L ABG Oxyhemoglobin ABG Sodium ABG Potassium ABG Chloride ABG Glucose 110 H VBG pH Oxyhemoglobin Carboxyhemoglobin Sodium Potassium Chloride Carbon Dioxide 37 H BUN 28 H Creatinine Glucose 106 H POC Glucose Lactic Acid Calcium Phosphorus Magnesium Total Bilirubin AST ALT Ammonia Lactate Dehydrogenase Total Creatine Kinase CK-MB (CK-2) Troponin T NT-Pro-B Natriuret Pep Total Protein Albumin Triglycerides TSH Arterial Blood Glucose 110 H Arterial Blood Ionized Calcium Urine pH Urine WBC (Auto) Urine Creatinine 11/02/20 11/03/20 11/03/20 23:29 04:45 04:45 WBC 11.8 H RBC 3.07 L Hgb 9.0 L Hct 27.2 L RDW Lymph % (Auto) 11.4 L [place] % (Auto) 9.5 H Eos % (Auto) Lymph # (Auto) [place] # (Auto) 1.1 H Eos # (Auto) Seg Neutrophils % 75.9 H Lymphocytes % (Manual) Monocytes % (Manual) Seg Neutrophils # 9.0 H Seg Neutrophils # Man Lymphocytes # (Manual) Monocytes # (Manual) D-Dimer Heparin Anti-Xa Level ABG pH POC ABG pCO2 POC ABG pO2 ABG pO2 ABG HCO3 ABG O2 Saturation ABG Base Excess ABG Hemoglobin ABG Oxyhemoglobin ABG Sodium ABG Potassium ABG Chloride ABG Glucose VBG pH Oxyhemoglobin Carboxyhemoglobin Sodium 146 H Potassium Chloride Carbon Dioxide 39 H BUN 26 H Creatinine Glucose POC Glucose 129 H Lactic Acid Calcium Phosphorus Magnesium Total Bilirubin AST ALT Ammonia Lactate Dehydrogenase Total Creatine Kinase CK-MB (CK-2) Troponin T NT-Pro-B Natriuret Pep Total Protein Albumin Triglycerides TSH Arterial Blood Glucose Arterial Blood Ionized Calcium Urine pH Urine WBC (Auto) Urine Creatinine 11/03/20 11/03/20 11/03/20 05:05 11:51 17:43 WBC RBC Hgb Hct RDW Lymph % (Auto) [place] % (Auto) Eos % (Auto) Lymph # (Auto) [place] # (Auto) Eos # (Auto) Seg Neutrophils % Lymphocytes % (Manual) Monocytes % (Manual) Seg Neutrophils # Seg Neutrophils # Man Lymphocytes # (Manual) Monocytes # (Manual) D-Dimer Heparin Anti-Xa Level ABG pH 7.452 H POC ABG pCO2 55.4 H POC ABG pO2 129.1 H ABG pO2 ABG HCO3 ABG O2 Saturation ABG Base Excess ABG Hemoglobin 9.3 L ABG Oxyhemoglobin ABG Sodium ABG Potassium ABG Chloride ABG Glucose 99 H VBG pH Oxyhemoglobin Carboxyhemoglobin 1.7 H Sodium Potassium Chloride Carbon Dioxide BUN Creatinine Glucose POC Glucose 131 H 125 H Lactic Acid Calcium Phosphorus Magnesium Total Bilirubin AST ALT Ammonia Lactate Dehydrogenase Total Creatine Kinase CK-MB (CK-2) Troponin T NT-Pro-B Natriuret Pep Total Protein Albumin Triglycerides TSH Arterial Blood Glucose 99 H Arterial Blood Ionized Calcium Urine pH Urine WBC (Auto) Urine Creatinine 11/03/20 11/04/20 11/04/20 23:27 04:00 05:10 WBC RBC Hgb Hct RDW Lymph % (Auto) [place] % (Auto) Eos % (Auto) Lymph # (Auto) [place] # (Auto) Eos # (Auto) Seg Neutrophils % Lymphocytes % (Manual) Monocytes % (Manual) Seg Neutrophils # Seg Neutrophils # Man Lymphocytes # (Manual) Monocytes # (Manual) D-Dimer Heparin Anti-Xa Level ABG pH POC ABG pCO2 POC ABG pO2 ABG pO2 ABG HCO3 ABG O2 Saturation ABG Base Excess ABG Hemoglobin ABG Oxyhemoglobin ABG Sodium ABG Potassium ABG Chloride ABG Glucose VBG pH Oxyhemoglobin Carboxyhemoglobin Sodium Potassium Chloride 95.2 L Carbon Dioxide 40 H BUN 26 H Creatinine Glucose 128 H POC Glucose 148 H 126 H Lactic Acid Calcium Phosphorus Magnesium Total Bilirubin AST ALT Ammonia Lactate Dehydrogenase Total Creatine Kinase CK-MB (CK-2) Troponin T NT-Pro-B Natriuret Pep Total Protein Albumin Triglycerides TSH Arterial Blood Glucose Arterial Blood Ionized Calcium Urine pH Urine WBC (Auto) Urine Creatinine 11/04/20 11/04/20 11/04/20 11:39 18:00 21:18 WBC RBC Hgb Hct RDW Lymph % (Auto) [place] % (Auto) Eos % (Auto) Lymph # (Auto) [place] # (Auto) Eos # (Auto) Seg Neutrophils % Lymphocytes % (Manual) Monocytes % (Manual) Seg Neutrophils # Seg Neutrophils # Man Lymphocytes # (Manual) Monocytes # (Manual) D-Dimer Heparin Anti-Xa Level ABG pH 7.511 H POC ABG pCO2 49.0 H POC ABG pO2 ABG pO2 ABG HCO3 ABG O2 Saturation ABG Base Excess ABG Hemoglobin 9.5 L ABG Oxyhemoglobin ABG Sodium 135.7 L ABG Potassium ABG Chloride ABG Glucose 152 H VBG pH Oxyhemoglobin Carboxyhemoglobin Sodium Potassium Chloride Carbon Dioxide BUN Creatinine Glucose POC Glucose 142 H 130 H Lactic Acid Calcium Phosphorus Magnesium Total Bilirubin AST ALT Ammonia Lactate Dehydrogenase Total Creatine Kinase CK-MB (CK-2) Troponin T NT-Pro-B Natriuret Pep Total Protein Albumin Triglycerides TSH Arterial Blood Glucose 152 H Arterial Blood Ionized Calcium 4.3 L Urine pH Urine WBC (Auto) Urine Creatinine 11/04/20 11/05/20 11/05/20 23:19 03:30 03:30 WBC RBC 3.02 L Hgb 9.1 L Hct 26.7 L RDW Lymph % (Auto) [place] % (Auto) Eos % (Auto) Lymph # (Auto) [place] # (Auto) Eos # (Auto) Seg Neutrophils % Lymphocytes % (Manual) Monocytes % (Manual) Seg Neutrophils # Seg Neutrophils # Man Lymphocytes # (Manual) Monocytes # (Manual) D-Dimer Heparin Anti-Xa Level ABG pH POC ABG pCO2 POC ABG pO2 ABG pO2 ABG HCO3 ABG O2 Saturation ABG Base Excess ABG Hemoglobin ABG Oxyhemoglobin ABG Sodium ABG Potassium ABG Chloride ABG Glucose VBG pH Oxyhemoglobin Carboxyhemoglobin Sodium Potassium Chloride 93.6 L Carbon Dioxide 40 H BUN 24 H Creatinine Glucose 121 H POC Glucose 126 H Lactic Acid Calcium Phosphorus Magnesium Total Bilirubin AST ALT Ammonia Lactate Dehydrogenase Total Creatine Kinase CK-MB (CK-2) Troponin T NT-Pro-B Natriuret Pep Total Protein Albumin Triglycerides TSH Arterial Blood Glucose Arterial Blood Ionized Calcium Urine pH Urine WBC (Auto) Urine Creatinine 11/05/20 11/05/20 11/05/20 05:24 11:37 17:37 WBC RBC Hgb Hct RDW Lymph % (Auto) [place] % (Auto) Eos % (Auto) Lymph # (Auto) [place] # (Auto) Eos # (Auto) Seg Neutrophils % Lymphocytes % (Manual) Monocytes % (Manual) Seg Neutrophils # Seg Neutrophils # Man Lymphocytes # (Manual) Monocytes # (Manual) D-Dimer Heparin Anti-Xa Level ABG pH POC ABG pCO2 POC ABG pO2 ABG pO2 ABG HCO3 ABG O2 Saturation ABG Base Excess ABG Hemoglobin ABG Oxyhemoglobin ABG Sodium ABG Potassium ABG Chloride ABG Glucose VBG pH Oxyhemoglobin Carboxyhemoglobin Sodium Potassium Chloride Carbon Dioxide BUN Creatinine Glucose POC Glucose 124 H 125 H 153 H Lactic Acid Calcium Phosphorus Magnesium Total Bilirubin AST ALT Ammonia Lactate Dehydrogenase Total Creatine Kinase CK-MB (CK-2) Troponin T NT-Pro-B Natriuret Pep Total Protein Albumin Triglycerides TSH Arterial Blood Glucose Arterial Blood Ionized Calcium Urine pH Urine WBC (Auto) Urine Creatinine 11/05/20 11/06/20 11/06/20 23:20 05:24 12:17 WBC RBC Hgb Hct RDW Lymph % (Auto) [place] % (Auto) Eos % (Auto) Lymph # (Auto) [place] # (Auto) Eos # (Auto) Seg Neutrophils % Lymphocytes % (Manual) Monocytes % (Manual) Seg Neutrophils # Seg Neutrophils # Man Lymphocytes # (Manual) Monocytes # (Manual) D-Dimer Heparin Anti-Xa Level ABG pH POC ABG pCO2 POC ABG pO2 ABG pO2 ABG HCO3 ABG O2 Saturation ABG Base Excess ABG Hemoglobin ABG Oxyhemoglobin ABG Sodium ABG Potassium ABG Chloride ABG Glucose VBG pH Oxyhemoglobin Carboxyhemoglobin Sodium Potassium Chloride Carbon Dioxide BUN Creatinine Glucose POC Glucose 133 H 143 H 139 H Lactic Acid Calcium Phosphorus Magnesium Total Bilirubin AST ALT Ammonia Lactate Dehydrogenase Total Creatine Kinase CK-MB (CK-2) Troponin T NT-Pro-B Natriuret Pep Total Protein Albumin Triglycerides TSH Arterial Blood Glucose Arterial Blood Ionized Calcium Urine pH Urine WBC (Auto) Urine Creatinine 11/06/20 11/06/20 11/07/20 17:38 23:26 04:50 WBC RBC 3.24 L Hgb 9.6 L Hct 29.0 L RDW Lymph % (Auto) [place] % (Auto) 10.3 H Eos % (Auto) 6.9 H Lymph # (Auto) [place] # (Auto) Eos # (Auto) 0.5 H Seg Neutrophils % Lymphocytes % (Manual) Monocytes % (Manual) Seg Neutrophils # Seg Neutrophils # Man Lymphocytes # (Manual) Monocytes # (Manual) D-Dimer Heparin Anti-Xa Level ABG pH POC ABG pCO2 POC ABG pO2 ABG pO2 ABG HCO3 ABG O2 Saturation ABG Base Excess ABG Hemoglobin ABG Oxyhemoglobin ABG Sodium ABG Potassium ABG Chloride ABG Glucose VBG pH Oxyhemoglobin Carboxyhemoglobin Sodium Potassium Chloride Carbon Dioxide BUN Creatinine Glucose POC Glucose 139 H 117 H Lactic Acid Calcium Phosphorus Magnesium Total Bilirubin AST ALT Ammonia Lactate Dehydrogenase Total Creatine Kinase CK-MB (CK-2) Troponin T NT-Pro-B Natriuret Pep Total Protein Albumin Triglycerides TSH Arterial Blood Glucose Arterial Blood Ionized Calcium Urine pH Urine WBC (Auto) Urine Creatinine 11/07/20 11/07/20 11/07/20 04:50 05:10 12:22 WBC RBC Hgb Hct RDW Lymph % (Auto) [place] % (Auto) Eos % (Auto) Lymph # (Auto) [place] # (Auto) Eos # (Auto) Seg Neutrophils % Lymphocytes % (Manual) Monocytes % (Manual) Seg Neutrophils # Seg Neutrophils # Man Lymphocytes # (Manual) Monocytes # (Manual) D-Dimer Heparin Anti-Xa Level ABG pH POC ABG pCO2 POC ABG pO2 ABG pO2 ABG HCO3 ABG O2 Saturation ABG Base Excess ABG Hemoglobin ABG Oxyhemoglobin ABG Sodium ABG Potassium ABG Chloride ABG Glucose VBG pH Oxyhemoglobin Carboxyhemoglobin Sodium Potassium Chloride 97.2 L Carbon Dioxide 36 H BUN 25 H Creatinine Glucose 130 H POC Glucose 115 H 118 H Lactic Acid Calcium Phosphorus Magnesium Total Bilirubin AST ALT Ammonia Lactate Dehydrogenase Total Creatine Kinase CK-MB (CK-2) Troponin T NT-Pro-B Natriuret Pep Total Protein Albumin Triglycerides TSH Arterial Blood Glucose Arterial Blood Ionized Calcium Urine pH Urine WBC (Auto) Urine Creatinine 11/07/20 11/07/20 11/08/20 17:46 23:53 07:16 WBC RBC Hgb Hct RDW Lymph % (Auto) [place] % (Auto) Eos % (Auto) Lymph # (Auto) [place] # (Auto) Eos # (Auto) Seg Neutrophils % Lymphocytes % (Manual) Monocytes % (Manual) Seg Neutrophils # Seg Neutrophils # Man Lymphocytes # (Manual) Monocytes # (Manual) D-Dimer Heparin Anti-Xa Level ABG pH POC ABG pCO2 POC ABG pO2 ABG pO2 ABG HCO3 ABG O2 Saturation ABG Base Excess ABG Hemoglobin ABG Oxyhemoglobin ABG Sodium ABG Potassium ABG Chloride ABG Glucose VBG pH Oxyhemoglobin Carboxyhemoglobin Sodium Potassium Chloride Carbon Dioxide BUN Creatinine Glucose POC Glucose 150 H 141 H 134 H Lactic Acid Calcium Phosphorus Magnesium Total Bilirubin AST ALT Ammonia Lactate Dehydrogenase Total Creatine Kinase CK-MB (CK-2) Troponin T NT-Pro-B Natriuret Pep Total Protein Albumin Triglycerides TSH Arterial Blood Glucose Arterial Blood Ionized Calcium Urine pH Urine WBC (Auto) Urine Creatinine 11/08/20 11/08/20 11/08/20 11:35 17:59 23:50 WBC RBC Hgb Hct RDW Lymph % (Auto) [place] % (Auto) Eos % (Auto) Lymph # (Auto) [place] # (Auto) Eos # (Auto) Seg Neutrophils % Lymphocytes % (Manual) Monocytes % (Manual) Seg Neutrophils # Seg Neutrophils # Man Lymphocytes # (Manual) Monocytes # (Manual) D-Dimer Heparin Anti-Xa Level ABG pH POC ABG pCO2 POC ABG pO2 ABG pO2 ABG HCO3 ABG O2 Saturation ABG Base Excess ABG Hemoglobin ABG Oxyhemoglobin ABG Sodium ABG Potassium ABG Chloride ABG Glucose VBG pH Oxyhemoglobin Carboxyhemoglobin Sodium Potassium Chloride Carbon Dioxide BUN Creatinine Glucose POC Glucose 148 H 118 H 131 H Lactic Acid Calcium Phosphorus Magnesium Total Bilirubin AST ALT Ammonia Lactate Dehydrogenase Total Creatine Kinase CK-MB (CK-2) Troponin T NT-Pro-B Natriuret Pep Total Protein Albumin Triglycerides TSH Arterial Blood Glucose Arterial Blood Ionized Calcium Urine pH Urine WBC (Auto) Urine Creatinine 11/09/20 11/09/20 11/09/20 12:07 17:00 23:45 WBC RBC Hgb Hct RDW Lymph % (Auto) [place] % (Auto) Eos % (Auto) Lymph # (Auto) [place] # (Auto) Eos # (Auto) Seg Neutrophils % Lymphocytes % (Manual) Monocytes % (Manual) Seg Neutrophils # Seg Neutrophils # Man Lymphocytes # (Manual) Monocytes # (Manual) D-Dimer Heparin Anti-Xa Level ABG pH POC ABG pCO2 POC ABG pO2 ABG pO2 ABG HCO3 ABG O2 Saturation ABG Base Excess ABG Hemoglobin ABG Oxyhemoglobin ABG Sodium ABG Potassium ABG Chloride ABG Glucose VBG pH Oxyhemoglobin Carboxyhemoglobin Sodium Potassium Chloride Carbon Dioxide BUN Creatinine Glucose POC Glucose 133 H 126 H 129 H Lactic Acid Calcium Phosphorus Magnesium Total Bilirubin AST ALT Ammonia Lactate Dehydrogenase Total Creatine Kinase CK-MB (CK-2) Troponin T NT-Pro-B Natriuret Pep Total Protein Albumin Triglycerides TSH Arterial Blood Glucose Arterial Blood Ionized Calcium Urine pH Urine WBC (Auto) Urine Creatinine 11/10/20 11/10/20 05:43 11:47 WBC RBC Hgb Hct RDW Lymph % (Auto) [place] % (Auto) Eos % (Auto) Lymph # (Auto) [place] # (Auto) Eos # (Auto) Seg Neutrophils % Lymphocytes % (Manual) Monocytes % (Manual) Seg Neutrophils # Seg Neutrophils # Man Lymphocytes # (Manual) Monocytes # (Manual) D-Dimer Heparin Anti-Xa Level ABG pH POC ABG pCO2 POC ABG pO2 ABG pO2 ABG HCO3 ABG O2 Saturation ABG Base Excess ABG Hemoglobin ABG Oxyhemoglobin ABG Sodium ABG Potassium ABG Chloride ABG Glucose VBG pH Oxyhemoglobin Carboxyhemoglobin Sodium Potassium Chloride Carbon Dioxide BUN Creatinine Glucose POC Glucose 111 H 136 H Lactic Acid Calcium Phosphorus Magnesium Total Bilirubin AST ALT Ammonia Lactate Dehydrogenase Total Creatine Kinase CK-MB (CK-2) Troponin T NT-Pro-B Natriuret Pep Total Protein Albumin Triglycerides TSH Arterial Blood Glucose Arterial Blood Ionized Calcium Urine pH Urine WBC (Auto) Urine Creatinine Allied health notes reviewed: nursing
[2020-11-10] MEDS ORDERED: EPINEPHrine 1 MG/10 ML SYRINGE ONE (16:10)
[2020-11-10] MEDS ORDERED: SODIUM BICARB 8.4% 50 MEQ/50 ML SYRINGE IV ONE (16:10)
[2020-11-11] MEDS: GLYCOPYRROLATE 1 MG TAB PO SCH ×4 (00:15→22:25)
[2020-11-11] MEDS: hydrALAZINE 100 MG TAB PO SCH ×4 (00:15→22:25)
[2020-11-11] MEDS: levETIRAcetam 500 MG/5 ML ORAL LIQD PO SCH ×3 (00:15→21:05)
[2020-11-11] MEDS: LORazepam 2 MG/ML VIAL IV PRN ×5 (00:15→20:45)
[2020-11-11] MEDS: QUEtiapine 200 MG TAB PO SCH ×2 (00:16→22:25)
[2020-11-11] MEDS: HEPARIN 5,000 UNIT/1 ML VIAL SUB-Q SCH ×3 (00:16→21:05)
[2020-11-11] MEDS: DOCUSATE SODIUM 100 MG/10 ML ORAL LIQD PO SCH ×3 (00:17→21:05)
[2020-11-11] MEDS: LANSOPRAZOLE 30 MG SOLUTAB FEEDTUBE SCH ×3 (00:17→21:06)
[2020-11-11] MEDS: ACETAMINOPHEN 325 MG TAB PO PRN ×2 (06:54→20:45)
[2020-11-11] MEDS: HYDROmorphone 1 MG/1 ML INJ IV PRN ×3 (07:53→22:50)
[2020-11-11] MEDS: METOPROLOL TARTRATE 50 MG TAB PO SCH ×3 (07:54→20:45)
[2020-11-11] MEDS: amLODIPine 10 MG TAB PO SCH (09:30)
[2020-11-11] MEDS: QUEtiapine 25 MG TAB PO SCH (09:31)
[2020-11-11] MEDS: POLYETHYLENE GLYCOL 3350 17 GM POWDER PO SCH (09:31)
[2020-11-11] MEDS: QUEtiapine 100 MG TAB PO SCH (09:31)
[2020-11-11 11:26] LABS: Hematocrit 25.4 % (35.5-45.6); Hemoglobin 8.4 gm/dl (11.8-15.2); Mean Corpuscular HGB Conc 33 % (32-34); Mean Corpuscular Volume 91 fl (84-94); Platelet Count 239 K/mm3 (140-440); Red Blood Count 2.79 M/mm3 (3.65-5.03); Red Cell Distribution Width 15.1 % (13.2-15.2)
[2020-11-11 11:49] LABS: BUN/Creatinine Ratio 29; Blood Urea Nitrogen 26 mg/dL (9-20); Hemolysis Index 2
--- NOTE | 2020-11-11 12:56 | Progress Note ---
Assessment and Plan Cardiac arrest x3 with ROSC Severe septic and cardiogenic shock Acute respiratory failure with hypoxemia and hypercarbia Acute pulmonary edema MOE (acute kidney injury) Lactic acidosis, severe metabolic acidosis Bilateral pneumonia, aspiration pneumonia Elevated troponins - continue RTC t-piece as tolerated - transfer to telemetry OK - no new issues otherwise, continue care as below; - continue mucomyst nebs - prn gentle diuresis - continue Seroquel for agitation control - continue contact precautions re: MRSA - completed anti-infective's per ID rec's - follow clinically re: fevers / WBC - Monitor hemodynamics closely - wean supplemental oxygen for target O2 sat's > 92% acutely - aspiration precautions - continue lung protective strategies - bronchodilators with pulmonary hygiene per RT - wean per pulmonary driven protocols otherwise - avoid nephrotoxins, renally dose all medications - continue to avoid benzodiazepine's, reduce the possibility of delirium - continue Scopolamine for secretion control - continue wound care per RN/WCN - prn analgesia per CPOT score - Maintenance of sleep-wake cycle, avoid delirium - continue enteral nutritional support at goal rate as tolerated - G.I. & VTE prophylaxis - PT/OT/ROM exercises - continue mobility protocols for pressure ulcer prophylaxis - Monitor hemodynamics closely - continue other care per attending / other consultants - discharge planning ongoing concurrently .... Re-evaluate in am & prn I have spent ( >35 ) minutes with the patient w/ >50% of the time spent counseling and/or coordinating care for this patient. Counseling topics and/or how time was spent coordinating patient's care is outlined in the impression and plan above. Subjective Date of service: 11/11/20 Principal diagnosis: Cardiac arrest; Septic Shock; Ac. hypoxemic & hypercapnic resp failure; MOE Interval history: Patient is seen today for: Cardiac arrest with ROSC; Severe septic and cardiogenic shock; Acute respiratory failure with hypoxemia and hypercarbia; Acute pulmonary edema; MOE; Lactic acidosis; severe metabolic acidosis; Bilateral pneumonia; aspiration pneumonia; Elevated troponins Seen and examined at bedside; 24hour events reviewed; nursing and respiratory care staff consulted; no adverse overnight events reported to me; resting peacefully in bed; has tolerated 48 hours on t-piece now; secretions thick but overall improved; AMS is persistent Objective Vital Signs - 12hr 11/11/20 11/11/20 11/11/20 01:01 02:00 03:00 Temperature Pulse Rate 76 80 77 Pulse Rate [ From Monitor] Respiratory 22 21 20 Rate Blood Pressure 158/102 122/63 122/63 O2 Sat by Pulse 97 98 98 Oximetry O2 Sat by Pulse Oximetry [ Assessment] 11/11/20 11/11/20 11/11/20 03:38 03:47 04:00 Temperature 98.3 F Pulse Rate 77 75 Pulse Rate [ From Monitor] Respiratory 22 Rate Blood Pressure 137/71 O2 Sat by Pulse 99 Oximetry O2 Sat by Pulse Oximetry [ Assessment] 11/11/20 11/11/20 11/11/20 04:12 05:00 06:01 Temperature Pulse Rate 76 77 Pulse Rate [ From Monitor] Respiratory 21 24 Rate Blood Pressure 135/76 149/90 O2 Sat by Pulse 98 98 98 Oximetry O2 Sat by Pulse Oximetry [ Assessment] 11/11/20 11/11/20 11/11/20 06:54 07:01 07:54 Temperature Pulse Rate 84 93 H Pulse Rate [ From Monitor] Respiratory 16 28 H Rate Blood Pressure 149/90 185/105 O2 Sat by Pulse 99 Oximetry O2 Sat by Pulse Oximetry [ Assessment] 11/11/20 11/11/20 11/11/20 07:55 08:00 08:01 Temperature 98.1 F Pulse Rate 85 87 Pulse Rate [ 88 From Monitor] Respiratory 25 H 24 Rate Blood Pressure 161/85 O2 Sat by Pulse 100 100 100 Oximetry O2 Sat by Pulse 100 Oximetry [ Assessment] 11/11/20 11/11/20 11/11/20 09:00 09:30 10:00 Temperature Pulse Rate 70 72 72 Pulse Rate [ From Monitor] Respiratory 22 22 Rate Blood Pressure 125/80 125/80 133/78 O2 Sat by Pulse 98 99 Oximetry O2 Sat by Pulse Oximetry [ Assessment] 11/11/20 11/11/20 11/11/20 11:00 12:00 12:01 Temperature Pulse Rate 72 75 77 Pulse Rate [ 75 From Monitor] Respiratory 22 24 27 H Rate Blood Pressure 133/78 160/87 O2 Sat by Pulse 98 100 100 Oximetry O2 Sat by Pulse Oximetry [ Assessment] Constitutional: no acute distress, other (middle aged obese male with mildly increased respiratory efort at rest) Eyes: non-icteric ENT: oropharynx moist, oropharyngeal exudate pre (thick), other (midline trach eostomy) Neck: supple, no lymphadenopathy, no JVD Effort: mildly labored Ascultation: Bilateral: diminished breath sounds, rhonchi (scant) Percussion: Bilateral: not dull Cardiovascular: regular rate and rhythm, other (S1,S2) Gastrointestinal: normoactive bowel sounds, soft, non-tender, non-distended (protuberant) Integumentary: normal Extremities: no cyanosis, no edema, pulses normal, no ischemia or petechiae Neurologic: pupils equal and round, unable to assess, other (encephalopathic) Psychiatric: other (unable to assess re: AMS) CBC and BMP: 11/11/20 11:00 11/11/20 08:38 ABG, PT/INR, D-dimer: ABG ABG pH 7.388 (7.320-7.450) 11/11/20 03:11 POC ABG pCO2 64.5 mmHg (32.0-48.0) H 11/11/20 03:11 ABG pCO2 55.5 mm Hg 10/16/20 05:10 POC ABG pO2 94.0 mmHg (83-108) 11/11/20 03:11 ABG pO2 104.5 mm Hg (80.0-90.0) H 10/16/20 05:10 POC ABG HCO3 38.0 11/11/20 03:11 ABG O2 Saturation 97.6 (0-100) 11/11/20 03:11 PT/INR, D-dimer PT 13.5 Sec. (12.2-14.9) 10/28/20 07:00 INR 1.05 (0.87-1.13) 10/28/20 07:00 D-Dimer 679.5 ng/mlDDU (0-234) H 10/10/20 10:48 Abnormal lab findings: Abnormal Labs 10/10/20 10/10/20 10/10/20 10:46 10:46 10:46 WBC RBC Hgb Hct RDW Lymph % (Auto) [place] % (Auto) Eos % (Auto) Lymph # (Auto) [place] # (Auto) Eos # (Auto) Seg Neutrophils % Lymphocytes % (Manual) Monocytes % (Manual) Seg Neutrophils # Seg Neutrophils # Man Lymphocytes # (Manual) Monocytes # (Manual) D-Dimer Heparin Anti-Xa Level ABG pH POC ABG pCO2 POC ABG pO2 ABG pO2 ABG HCO3 ABG O2 Saturation ABG Base Excess ABG Hemoglobin ABG Oxyhemoglobin ABG Sodium ABG Potassium ABG Chloride ABG Glucose VBG pH Oxyhemoglobin Carboxyhemoglobin Sodium Potassium Chloride Carbon Dioxide BUN Creatinine Glucose POC Glucose Lactic Acid 13.60 H* Calcium Phosphorus Magnesium Total Bilirubin AST ALT Ammonia 214.0 H Lactate Dehydrogenase Total Creatine Kinase CK-MB (CK-2) Troponin T NT-Pro-B Natriuret Pep Total Protein Albumin Triglycerides TSH 6.260 H Arterial Blood Glucose Arterial Blood Ionized Calcium Urine pH Urine WBC (Auto) Urine Creatinine 10/10/20 10/10/20 10/10/20 10:46 10:48 10:48 WBC RBC 5.28 H Hgb 15.5 H Hct 48.8 H RDW Lymph % (Auto) [place] % (Auto) Eos % (Auto) Lymph # (Auto) [place] # (Auto) Eos # (Auto) Seg Neutrophils % Lymphocytes % (Manual) 42.0 H Monocytes % (Manual) Seg Neutrophils # Seg Neutrophils # Man Lymphocytes # (Manual) Monocytes # (Manual) D-Dimer Heparin Anti-Xa Level ABG pH POC ABG pCO2 POC ABG pO2 ABG pO2 ABG HCO3 ABG O2 Saturation ABG Base Excess ABG Hemoglobin ABG Oxyhemoglobin ABG Sodium ABG Potassium ABG Chloride ABG Glucose VBG pH Oxyhemoglobin Carboxyhemoglobin Sodium Potassium 3.3 L Chloride 91.2 L Carbon Dioxide BUN Creatinine 1.8 H Glucose 231 H POC Glucose Lactic Acid Calcium Phosphorus Magnesium Total Bilirubin AST 60 H ALT 57 H Ammonia Lactate Dehydrogenase Total Creatine Kinase CK-MB (CK-2) Troponin T NT-Pro-B Natriuret Pep 1187 H Total Protein 9.0 H Albumin Triglycerides TSH Arterial Blood Glucose Arterial Blood Ionized Calcium Urine pH Urine WBC (Auto) Urine Creatinine 10/10/20 10/10/20 10/10/20 10:48 10:48 10:48 WBC RBC Hgb Hct RDW Lymph % (Auto) [place] % (Auto) Eos % (Auto) Lymph # (Auto) [place] # (Auto) Eos # (Auto) Seg Neutrophils % Lymphocytes % (Manual) Monocytes % (Manual) Seg Neutrophils # Seg Neutrophils # Man Lymphocytes # (Manual) Monocytes # (Manual) D-Dimer 679.5 H Heparin Anti-Xa Level ABG pH POC ABG pCO2 POC ABG pO2 ABG pO2 ABG HCO3 ABG O2 Saturation ABG Base Excess ABG Hemoglobin ABG Oxyhemoglobin ABG Sodium ABG Potassium ABG Chloride ABG Glucose VBG pH 6.870 L* Oxyhemoglobin Carboxyhemoglobin Sodium Potassium Chloride Carbon Dioxide BUN Creatinine Glucose POC Glucose Lactic Acid Calcium Phosphorus Magnesium Total Bilirubin AST ALT Ammonia Lactate Dehydrogenase 386 H Total Creatine Kinase CK-MB (CK-2) Troponin T NT-Pro-B Natriuret Pep Total Protein Albumin Triglycerides TSH Arterial Blood Glucose Arterial Blood Ionized Calcium Urine pH Urine WBC (Auto) Urine Creatinine 10/10/20 10/10/20 10/10/20 14:10 14:20 15:50 WBC RBC Hgb Hct RDW Lymph % (Auto) [place] % (Auto) Eos % (Auto) Lymph # (Auto) [place] # (Auto) Eos # (Auto) Seg Neutrophils % Lymphocytes % (Manual) Monocytes % (Manual) Seg Neutrophils # Seg Neutrophils # Man Lymphocytes # (Manual) Monocytes # (Manual) D-Dimer Heparin Anti-Xa Level ABG pH 7.175 L 7.247 L POC ABG pCO2 85.0 H POC ABG pO2 43.7 L ABG pO2 60.3 L ABG HCO3 32.0 H ABG O2 Saturation 86.1 L ABG Base Excess ABG Hemoglobin ABG Oxyhemoglobin 67.7 L ABG Sodium ABG Potassium ABG Chloride ABG Glucose 247 H VBG pH Oxyhemoglobin 84.4 L Carboxyhemoglobin Sodium Potassium Chloride Carbon Dioxide BUN Creatinine Glucose POC Glucose Lactic Acid 4.00 H* Calcium Phosphorus Magnesium Total Bilirubin AST ALT Ammonia Lactate Dehydrogenase Total Creatine Kinase CK-MB (CK-2) Troponin T NT-Pro-B Natriuret Pep Total Protein Albumin Triglycerides TSH Arterial Blood Glucose 247 H Arterial Blood Ionized Calcium 4.4 L Urine pH Urine WBC (Auto) Urine Creatinine 10/10/20 10/10/20 10/10/20 15:50 16:22 18:18 WBC RBC Hgb Hct RDW Lymph % (Auto) [place] % (Auto) Eos % (Auto) Lymph # (Auto) [place] # (Auto) Eos # (Auto) Seg Neutrophils % Lymphocytes % (Manual) Monocytes % (Manual) Seg Neutrophils # Seg Neutrophils # Man Lymphocytes # (Manual) Monocytes # (Manual) D-Dimer Heparin Anti-Xa Level ABG pH 7.171 L POC ABG pCO2 96.6 H POC ABG pO2 55.3 L ABG pO2 ABG HCO3 ABG O2 Saturation ABG Base Excess ABG Hemoglobin ABG Oxyhemoglobin 81.4 L ABG Sodium ABG Potassium ABG Chloride ABG Glucose 115 H VBG pH Oxyhemoglobin Carboxyhemoglobin Sodium Potassium Chloride Carbon Dioxide BUN Creatinine Glucose POC Glucose 132 H Lactic Acid Calcium Phosphorus Magnesium Total Bilirubin AST ALT Ammonia Lactate Dehydrogenase Total Creatine Kinase 1192 H CK-MB (CK-2) 21.7 H Troponin T 0.377 H* D NT-Pro-B Natriuret Pep Total Protein Albumin Triglycerides TSH Arterial Blood Glucose 115 H Arterial Blood Ionized Calcium Urine pH Urine WBC (Auto) Urine Creatinine 10/10/20 10/10/20 10/10/20 18:18 18:18 22:49 WBC 23.0 H RBC 5.12 H Hgb Hct RDW Lymph % (Auto) [place] % (Auto) Eos % (Auto) Lymph # (Auto) [place] # (Auto) Eos # (Auto) Seg Neutrophils % Lymphocytes % (Manual) 4.0 L Monocytes % (Manual) 9.0 H Seg Neutrophils # Seg Neutrophils # Man 13.8 H Lymphocytes # (Manual) 0.9 L Monocytes # (Manual) 2.1 H D-Dimer Heparin Anti-Xa Level ABG pH POC ABG pCO2 POC ABG pO2 ABG pO2 ABG HCO3 ABG O2 Saturation ABG Base Excess ABG Hemoglobin ABG Oxyhemoglobin ABG Sodium ABG Potassium ABG Chloride ABG Glucose VBG pH Oxyhemoglobin Carboxyhemoglobin Sodium 146 H Potassium Chloride Carbon Dioxide 34 H D BUN 27 H Creatinine 2.7 H Glucose 102 H POC Glucose Lactic Acid Calcium Phosphorus Magnesium Total Bilirubin AST 90 H ALT 66 H Ammonia Lactate Dehydrogenase Total Creatine Kinase CK-MB (CK-2) Troponin T 0.273 H* D NT-Pro-B Natriuret Pep Total Protein Albumin Triglycerides TSH Arterial Blood Glucose Arterial Blood Ionized Calcium Urine pH Urine WBC (Auto) Urine Creatinine 10/11/20 10/11/20 10/11/20 02:00 02:00 02:00 WBC 17.3 H RBC Hgb Hct RDW Lymph % (Auto) 3.9 L [place] % (Auto) Eos % (Auto) Lymph # (Auto) 0.7 L [place] # (Auto) Eos # (Auto) Seg Neutrophils % 93.0 H Lymphocytes % (Manual) Monocytes % (Manual) Seg Neutrophils # 16.1 H Seg Neutrophils # Man Lymphocytes # (Manual) Monocytes # (Manual) D-Dimer Heparin Anti-Xa Level ABG pH POC ABG pCO2 POC ABG pO2 ABG pO2 ABG HCO3 ABG O2 Saturation ABG Base Excess ABG Hemoglobin ABG Oxyhemoglobin ABG Sodium ABG Potassium ABG Chloride ABG Glucose VBG pH Oxyhemoglobin Carboxyhemoglobin Sodium 149 H Potassium 3.3 L Chloride 95.3 L Carbon Dioxide 37 H BUN 29 H Creatinine 2.6 H Glucose POC Glucose Lactic Acid Calcium Phosphorus Magnesium Total Bilirubin AST 80 H ALT 59 H Ammonia Lactate Dehydrogenase Total Creatine Kinase CK-MB (CK-2) Troponin T 0.201 H* D NT-Pro-B Natriuret Pep Total Protein Albumin 3.6 L Triglycerides TSH Arterial Blood Glucose Arterial Blood Ionized Calcium Urine pH Urine WBC (Auto) Urine Creatinine 10/11/20 10/11/20 10/11/20 03:51 08:35 11:15 WBC RBC Hgb Hct RDW Lymph % (Auto) [place] % (Auto) Eos % (Auto) Lymph # (Auto) [place] # (Auto) Eos # (Auto) Seg Neutrophils % Lymphocytes % (Manual) Monocytes % (Manual) Seg Neutrophils # Seg Neutrophils # Man Lymphocytes # (Manual) Monocytes # (Manual) D-Dimer Heparin Anti-Xa Level 0.22 L ABG pH 7.491 H POC ABG pCO2 57.6 H POC ABG pO2 ABG pO2 ABG HCO3 ABG O2 Saturation ABG Base Excess ABG Hemoglobin ABG Oxyhemoglobin ABG Sodium 150.0 H ABG Potassium 3.1 L ABG Chloride 96.0 L ABG Glucose 122 H VBG pH Oxyhemoglobin Carboxyhemoglobin Sodium Potassium Chloride Carbon Dioxide BUN Creatinine Glucose POC Glucose 151 H Lactic Acid Calcium Phosphorus Magnesium Total Bilirubin AST ALT Ammonia Lactate Dehydrogenase Total Creatine Kinase CK-MB (CK-2) Troponin T NT-Pro-B Natriuret Pep Total Protein Albumin Triglycerides TSH Arterial Blood Glucose 122 H Arterial Blood Ionized Calcium 3.9 L Urine pH Urine WBC (Auto) Urine Creatinine 10/11/20 10/11/20 10/11/20 13:30 13:30 13:30 WBC 15.0 H RBC Hgb Hct RDW Lymph % (Auto) [place] % (Auto) Eos % (Auto) Lymph # (Auto) [place] # (Auto) Eos # (Auto) Seg Neutrophils % Lymphocytes % (Manual) Monocytes % (Manual) Seg Neutrophils # Seg Neutrophils # Man Lymphocytes # (Manual) Monocytes # (Manual) D-Dimer Heparin Anti-Xa Level ABG pH POC ABG pCO2 POC ABG pO2 ABG pO2 ABG HCO3 ABG O2 Saturation ABG Base Excess ABG Hemoglobin ABG Oxyhemoglobin ABG Sodium ABG Potassium ABG Chloride ABG Glucose VBG pH Oxyhemoglobin Carboxyhemoglobin Sodium Potassium Chloride Carbon Dioxide BUN Creatinine Glucose POC Glucose Lactic Acid Calcium Phosphorus Magnesium Total Bilirubin AST ALT Ammonia Lactate Dehydrogenase Total Creatine Kinase CK-MB (CK-2) Troponin T NT-Pro-B Natriuret Pep Total Protein Albumin Triglycerides TSH Arterial Blood Glucose Arterial Blood Ionized Calcium Urine pH 9.0 H Urine WBC (Auto) 18.0 H Urine Creatinine 80.5 H 10/11/20 10/11/20 10/12/20 17:17 23:14 03:53 WBC RBC Hgb Hct RDW Lymph % (Auto) [place] % (Auto) Eos % (Auto) Lymph # (Auto) [place] # (Auto) Eos # (Auto) Seg Neutrophils % Lymphocytes % (Manual) Monocytes % (Manual) Seg Neutrophils # Seg Neutrophils # Man Lymphocytes # (Manual) Monocytes # (Manual) D-Dimer Heparin Anti-Xa Level ABG pH 7.545 H POC ABG pCO2 54.6 H POC ABG pO2 231.9 H ABG pO2 ABG HCO3 ABG O2 Saturation ABG Base Excess ABG Hemoglobin ABG Oxyhemoglobin 98.5 H ABG Sodium 150.5 H ABG Potassium 3.2 L ABG Chloride 96.0 L ABG Glucose 148 H VBG pH Oxyhemoglobin Carboxyhemoglobin Sodium Potassium Chloride Carbon Dioxide BUN Creatinine Glucose POC Glucose 121 H 135 H Lactic Acid Calcium Phosphorus Magnesium Total Bilirubin AST ALT Ammonia Lactate Dehydrogenase Total Creatine Kinase CK-MB (CK-2) Troponin T NT-Pro-B Natriuret Pep Total Protein Albumin Triglycerides TSH Arterial Blood Glucose 148 H Arterial Blood Ionized Calcium 3.8 L Urine pH Urine WBC (Auto) Urine Creatinine 10/12/20 10/12/20 10/12/20 04:00 05:10 05:12 WBC 14.3 H RBC Hgb 11.6 L Hct 35.2 L RDW Lymph % (Auto) [place] % (Auto) Eos % (Auto) Lymph # (Auto) [place] # (Auto) Eos # (Auto) Seg Neutrophils % Lymphocytes % (Manual) Monocytes % (Manual) Seg Neutrophils # Seg Neutrophils # Man Lymphocytes # (Manual) Monocytes # (Manual) D-Dimer Heparin Anti-Xa Level ABG pH POC ABG pCO2 POC ABG pO2 ABG pO2 ABG HCO3 ABG O2 Saturation ABG Base Excess ABG Hemoglobin ABG Oxyhemoglobin ABG Sodium ABG Potassium ABG Chloride ABG Glucose VBG pH Oxyhemoglobin Carboxyhemoglobin Sodium 155 H Potassium 3.3 L Chloride 97.9 L Carbon Dioxide 47 H* D BUN 50 H Creatinine 3.4 H Glucose 146 H POC Glucose 137 H Lactic Acid Calcium 8.0 L Phosphorus Magnesium Total Bilirubin AST ALT Ammonia Lactate Dehydrogenase Total Creatine Kinase CK-MB (CK-2) Troponin T 0.125 H* D NT-Pro-B Natriuret Pep Total Protein Albumin Triglycerides TSH Arterial Blood Glucose Arterial Blood Ionized Calcium Urine pH Urine WBC (Auto) Urine Creatinine 10/12/20 10/12/20 10/12/20 11:39 16:01 19:49 WBC RBC Hgb Hct RDW Lymph % (Auto) [place] % (Auto) Eos % (Auto) Lymph # (Auto) [place] # (Auto) Eos # (Auto) Seg Neutrophils % Lymphocytes % (Manual) Monocytes % (Manual) Seg Neutrophils # Seg Neutrophils # Man Lymphocytes # (Manual) Monocytes # (Manual) D-Dimer Heparin Anti-Xa Level ABG pH POC ABG pCO2 POC ABG pO2 ABG pO2 ABG HCO3 ABG O2 Saturation ABG Base Excess ABG Hemoglobin ABG Oxyhemoglobin ABG Sodium ABG Potassium ABG Chloride ABG Glucose VBG pH Oxyhemoglobin Carboxyhemoglobin Sodium 157 H Potassium 3.3 L Chloride Carbon Dioxide 47 H* BUN 52 H Creatinine 3.0 H Glucose 137 H POC Glucose 138 H 119 H Lactic Acid Calcium 8.0 L Phosphorus Magnesium Total Bilirubin AST ALT Ammonia Lactate Dehydrogenase Total Creatine Kinase CK-MB (CK-2) Troponin T NT-Pro-B Natriuret Pep Total Protein Albumin Triglycerides TSH Arterial Blood Glucose Arterial Blood Ionized Calcium Urine pH Urine WBC (Auto) Urine Creatinine 10/12/20 10/13/20 10/13/20 23:37 02:28 04:52 WBC RBC Hgb Hct RDW Lymph % (Auto) [place] % (Auto) Eos % (Auto) Lymph # (Auto) [place] # (Auto) Eos # (Auto) Seg Neutrophils % Lymphocytes % (Manual) Monocytes % (Manual) Seg Neutrophils # Seg Neutrophils # Man Lymphocytes # (Manual) Monocytes # (Manual) D-Dimer Heparin Anti-Xa Level ABG pH 7.485 H POC ABG pCO2 57.1 H POC ABG pO2 ABG pO2 ABG HCO3 ABG O2 Saturation ABG Base Excess ABG Hemoglobin ABG Oxyhemoglobin ABG Sodium 152.4 H ABG Potassium ABG Chloride ABG Glucose 129 H VBG pH Oxyhemoglobin Carboxyhemoglobin Sodium 155 H Potassium Chloride Carbon Dioxide 45 H* BUN 52 H Creatinine 2.7 H Glucose 121 H POC Glucose 131 H Lactic Acid Calcium Phosphorus Magnesium 2.40 H Total Bilirubin AST ALT Ammonia Lactate Dehydrogenase Total Creatine Kinase CK-MB (CK-2) Troponin T NT-Pro-B Natriuret Pep Total Protein Albumin Triglycerides 278 H TSH Arterial Blood Glucose 129 H Arterial Blood Ionized Calcium 4.1 L Urine pH Urine WBC (Auto) Urine Creatinine 10/13/20 10/13/20 10/13/20 04:52 05:13 11:37 WBC 14.7 H RBC Hgb 11.7 L Hct RDW 15.8 H Lymph % (Auto) [place] % (Auto) Eos % (Auto) Lymph # (Auto) [place] # (Auto) Eos # (Auto) Seg Neutrophils % Lymphocytes % (Manual) Monocytes % (Manual) Seg Neutrophils # Seg Neutrophils # Man Lymphocytes # (Manual) Monocytes # (Manual) D-Dimer Heparin Anti-Xa Level ABG pH POC ABG pCO2 POC ABG pO2 ABG pO2 ABG HCO3 ABG O2 Saturation ABG Base Excess ABG Hemoglobin ABG Oxyhemoglobin ABG Sodium ABG Potassium ABG Chloride ABG Glucose VBG pH Oxyhemoglobin Carboxyhemoglobin Sodium Potassium Chloride Carbon Dioxide BUN Creatinine Glucose POC Glucose 116 H 116 H Lactic Acid Calcium Phosphorus Magnesium Total Bilirubin AST ALT Ammonia Lactate Dehydrogenase Total Creatine Kinase CK-MB (CK-2) Troponin T NT-Pro-B Natriuret Pep Total Protein Albumin Triglycerides TSH Arterial Blood Glucose Arterial Blood Ionized Calcium Urine pH Urine WBC (Auto) Urine Creatinine 10/13/20 10/14/20 10/14/20 17:50 03:45 04:46 WBC 11.1 H RBC Hgb Hct RDW 15.3 H Lymph % (Auto) [place] % (Auto) Eos % (Auto) Lymph # (Auto) [place] # (Auto) Eos # (Auto) Seg Neutrophils % Lymphocytes % (Manual) Monocytes % (Manual) Seg Neutrophils # Seg Neutrophils # Man Lymphocytes # (Manual) Monocytes # (Manual) D-Dimer Heparin Anti-Xa Level ABG pH POC ABG pCO2 59.6 H POC ABG pO2 ABG pO2 ABG HCO3 ABG O2 Saturation ABG Base Excess ABG Hemoglobin ABG Oxyhemoglobin ABG Sodium 151.4 H ABG Potassium 3.3 L ABG Chloride ABG Glucose 138 H VBG pH Oxyhemoglobin Carboxyhemoglobin 1.6 H Sodium Potassium Chloride Carbon Dioxide BUN Creatinine Glucose POC Glucose 140 H Lactic Acid Calcium Phosphorus Magnesium Total Bilirubin AST ALT Ammonia Lactate Dehydrogenase Total Creatine Kinase CK-MB (CK-2) Troponin T NT-Pro-B Natriuret Pep Total Protein Albumin Triglycerides TSH Arterial Blood Glucose 138 H Arterial Blood Ionized Calcium 4.5 L Urine pH Urine WBC (Auto) Urine Creatinine 10/14/20 10/14/20 10/14/20 04:46 05:10 11:11 WBC RBC Hgb Hct RDW Lymph % (Auto) [place] % (Auto) Eos % (Auto) Lymph # (Auto) [place] # (Auto) Eos # (Auto) Seg Neutrophils % Lymphocytes % (Manual) Monocytes % (Manual) Seg Neutrophils # Seg Neutrophils # Man Lymphocytes # (Manual) Monocytes # (Manual) D-Dimer Heparin Anti-Xa Level ABG pH POC ABG pCO2 POC ABG pO2 ABG pO2 ABG HCO3 ABG O2 Saturation ABG Base Excess ABG Hemoglobin ABG Oxyhemoglobin ABG Sodium ABG Potassium ABG Chloride ABG Glucose VBG pH Oxyhemoglobin Carboxyhemoglobin Sodium 152 H Potassium 3.5 L Chloride Carbon Dioxide 38 H D BUN 46 H Creatinine 2.3 H Glucose 127 H POC Glucose 116 H 114 H Lactic Acid Calcium Phosphorus Magnesium Total Bilirubin AST ALT Ammonia Lactate Dehydrogenase Total Creatine Kinase CK-MB (CK-2) Troponin T NT-Pro-B Natriuret Pep Total Protein Albumin Triglycerides TSH Arterial Blood Glucose Arterial Blood Ionized Calcium Urine pH Urine WBC (Auto) Urine Creatinine 10/14/20 10/14/20 10/15/20 18:53 23:23 04:12 WBC RBC Hgb Hct RDW Lymph % (Auto) [place] % (Auto) Eos % (Auto) Lymph # (Auto) [place] # (Auto) Eos # (Auto) Seg Neutrophils % Lymphocytes % (Manual) Monocytes % (Manual) Seg Neutrophils # Seg Neutrophils # Man Lymphocytes # (Manual) Monocytes # (Manual) D-Dimer Heparin Anti-Xa Level ABG pH POC ABG pCO2 POC ABG pO2 ABG pO2 ABG HCO3 ABG O2 Saturation ABG Base Excess ABG Hemoglobin ABG Oxyhemoglobin ABG Sodium ABG Potassium ABG Chloride ABG Glucose VBG pH Oxyhemoglobin Carboxyhemoglobin Sodium 149 H Potassium 3.2 L Chloride Carbon Dioxide 37 H BUN 40 H Creatinine 2.0 H Glucose 124 H POC Glucose 128 H 113 H Lactic Acid Calcium Phosphorus Magnesium Total Bilirubin AST ALT Ammonia Lactate Dehydrogenase Total Creatine Kinase CK-MB (CK-2) Troponin T NT-Pro-B Natriuret Pep Total Protein Albumin Triglycerides TSH Arterial Blood Glucose Arterial Blood Ionized Calcium Urine pH Urine WBC (Auto) Urine Creatinine 10/15/20 10/15/20 10/15/20 04:22 11:39 17:36 WBC RBC Hgb Hct RDW Lymph % (Auto) [place] % (Auto) Eos % (Auto) Lymph # (Auto) [place] # (Auto) Eos # (Auto) Seg Neutrophils % Lymphocytes % (Manual) Monocytes % (Manual) Seg Neutrophils # Seg Neutrophils # Man Lymphocytes # (Manual) Monocytes # (Manual) D-Dimer Heparin Anti-Xa Level ABG pH POC ABG pCO2 POC ABG pO2 ABG pO2 115.0 H ABG HCO3 38.1 H ABG O2 Saturation ABG Base Excess 11.3 H ABG Hemoglobin 11.0 L ABG Oxyhemoglobin ABG Sodium ABG Potassium ABG Chloride ABG Glucose VBG pH Oxyhemoglobin Carboxyhemoglobin Sodium Potassium Chloride Carbon Dioxide BUN Creatinine Glucose POC Glucose 123 H 118 H Lactic Acid Calcium Phosphorus Magnesium Total Bilirubin AST ALT Ammonia Lactate Dehydrogenase Total Creatine Kinase CK-MB (CK-2) Troponin T NT-Pro-B Natriuret Pep Total Protein Albumin Triglycerides TSH Arterial Blood Glucose Arterial Blood Ionized Calcium Urine pH Urine WBC (Auto) Urine Creatinine 10/15/20 10/16/20 10/16/20 23:18 03:13 05:10 WBC RBC Hgb Hct RDW Lymph % (Auto) [place] % (Auto) Eos % (Auto) Lymph # (Auto) [place] # (Auto) Eos # (Auto) Seg Neutrophils % Lymphocytes % (Manual) Monocytes % (Manual) Seg Neutrophils # Seg Neutrophils # Man Lymphocytes # (Manual) Monocytes # (Manual) D-Dimer Heparin Anti-Xa Level ABG pH POC ABG pCO2 POC ABG pO2 ABG pO2 104.5 H ABG HCO3 35.1 H ABG O2 Saturation ABG Base Excess 9.5 H ABG Hemoglobin 7.9 L ABG Oxyhemoglobin ABG Sodium ABG Potassium ABG Chloride ABG Glucose VBG pH Oxyhemoglobin Carboxyhemoglobin Sodium Potassium 3.3 L Chloride Carbon Dioxide 33 H BUN 37 H Creatinine 1.4 H Glucose 148 H POC Glucose 135 H Lactic Acid Calcium Phosphorus Magnesium 2.40 H Total Bilirubin AST ALT Ammonia Lactate Dehydrogenase Total Creatine Kinase CK-MB (CK-2) Troponin T NT-Pro-B Natriuret Pep Total Protein Albumin Triglycerides TSH Arterial Blood Glucose Arterial Blood Ionized Calcium Urine pH Urine WBC (Auto) Urine Creatinine 10/16/20 10/16/20 10/16/20 06:36 11:08 17:07 WBC RBC Hgb Hct RDW Lymph % (Auto) [place] % (Auto) Eos % (Auto) Lymph # (Auto) [place] # (Auto) Eos # (Auto) Seg Neutrophils % Lymphocytes % (Manual) Monocytes % (Manual) Seg Neutrophils # Seg Neutrophils # Man Lymphocytes # (Manual) Monocytes # (Manual) D-Dimer Heparin Anti-Xa Level ABG pH POC ABG pCO2 POC ABG pO2 ABG pO2 ABG HCO3 ABG O2 Saturation ABG Base Excess ABG Hemoglobin ABG Oxyhemoglobin ABG Sodium ABG Potassium ABG Chloride ABG Glucose VBG pH Oxyhemoglobin Carboxyhemoglobin Sodium Potassium Chloride Carbon Dioxide BUN Creatinine Glucose POC Glucose 150 H 111 H 132 H Lactic Acid Calcium Phosphorus Magnesium Total Bilirubin AST ALT Ammonia Lactate Dehydrogenase Total Creatine Kinase CK-MB (CK-2) Troponin T NT-Pro-B Natriuret Pep Total Protein Albumin Triglycerides TSH Arterial Blood Glucose Arterial Blood Ionized Calcium Urine pH Urine WBC (Auto) Urine Creatinine 10/16/20 10/17/20 10/17/20 23:38 03:32 03:32 WBC RBC Hgb Hct RDW Lymph % (Auto) [place] % (Auto) Eos % (Auto) Lymph # (Auto) [place] # (Auto) Eos # (Auto) Seg Neutrophils % Lymphocytes % (Manual) Monocytes % (Manual) Seg Neutrophils # Seg Neutrophils # Man Lymphocytes # (Manual) Monocytes # (Manual) D-Dimer Heparin Anti-Xa Level ABG pH POC ABG pCO2 POC ABG pO2 ABG pO2 ABG HCO3 ABG O2 Saturation ABG Base Excess ABG Hemoglobin ABG Oxyhemoglobin ABG Sodium ABG Potassium ABG Chloride ABG Glucose VBG pH Oxyhemoglobin Carboxyhemoglobin Sodium 146 H Potassium Chloride Carbon Dioxide 32 H BUN 57 H Creatinine 2.4 H D Glucose 124 H POC Glucose 117 H Lactic Acid Calcium Phosphorus 5.20 H D Magnesium Total Bilirubin AST ALT Ammonia Lactate Dehydrogenase Total Creatine Kinase CK-MB (CK-2) Troponin T NT-Pro-B Natriuret Pep Total Protein Albumin Triglycerides TSH Arterial Blood Glucose Arterial Blood Ionized Calcium Urine pH Urine WBC (Auto) Urine Creatinine 10/17/20 10/17/20 10/18/20 05:10 17:33 00:13 WBC RBC Hgb Hct RDW Lymph % (Auto) [place] % (Auto) Eos % (Auto) Lymph # (Auto) [place] # (Auto) Eos # (Auto) Seg Neutrophils % Lymphocytes % (Manual) Monocytes % (Manual) Seg Neutrophils # Seg Neutrophils # Man Lymphocytes # (Manual) Monocytes # (Manual) D-Dimer Heparin Anti-Xa Level ABG pH POC ABG pCO2 POC ABG pO2 ABG pO2 ABG HCO3 ABG O2 Saturation ABG Base Excess ABG Hemoglobin ABG Oxyhemoglobin ABG Sodium ABG Potassium ABG Chloride ABG Glucose VBG pH Oxyhemoglobin Carboxyhemoglobin Sodium Potassium Chloride Carbon Dioxide BUN Creatinine Glucose POC Glucose 122 H 121 H 23 L Lactic Acid Calcium Phosphorus Magnesium Total Bilirubin AST ALT Ammonia Lactate Dehydrogenase Total Creatine Kinase CK-MB (CK-2) Troponin T NT-Pro-B Natriuret Pep Total Protein Albumin Triglycerides TSH Arterial Blood Glucose Arterial Blood Ionized Calcium Urine pH Urine WBC (Auto) Urine Creatinine 10/18/20 10/18/20 10/18/20 00:16 03:27 03:27 WBC RBC Hgb 11.7 L Hct RDW Lymph % (Auto) [place] % (Auto) Eos % (Auto) Lymph # (Auto) [place] # (Auto) Eos # (Auto) Seg Neutrophils % Lymphocytes % (Manual) Monocytes % (Manual) Seg Neutrophils # Seg Neutrophils # Man Lymphocytes # (Manual) Monocytes # (Manual) D-Dimer Heparin Anti-Xa Level ABG pH POC ABG pCO2 POC ABG pO2 ABG pO2 ABG HCO3 ABG O2 Saturation ABG Base Excess ABG Hemoglobin ABG Oxyhemoglobin ABG Sodium ABG Potassium ABG Chloride ABG Glucose VBG pH Oxyhemoglobin Carboxyhemoglobin Sodium Potassium Chloride 97.6 L Carbon Dioxide BUN 90 H Creatinine 3.3 H Glucose 146 H POC Glucose 134 H Lactic Acid Calcium Phosphorus Magnesium Total Bilirubin 1.70 H AST ALT Ammonia Lactate Dehydrogenase Total Creatine Kinase CK-MB (CK-2) Troponin T NT-Pro-B Natriuret Pep Total Protein Albumin 3.1 L Triglycerides TSH Arterial Blood Glucose Arterial Blood Ionized Calcium Urine pH Urine WBC (Auto) Urine Creatinine 10/18/20 10/18/20 10/18/20 05:09 11:19 17:15 WBC RBC Hgb Hct RDW Lymph % (Auto) [place] % (Auto) Eos % (Auto) Lymph # (Auto) [place] # (Auto) Eos # (Auto) Seg Neutrophils % Lymphocytes % (Manual) Monocytes % (Manual) Seg Neutrophils # Seg Neutrophils # Man Lymphocytes # (Manual) Monocytes # (Manual) D-Dimer Heparin Anti-Xa Level ABG pH POC ABG pCO2 POC ABG pO2 ABG pO2 ABG HCO3 ABG O2 Saturation ABG Base Excess ABG Hemoglobin ABG Oxyhemoglobin ABG Sodium ABG Potassium ABG Chloride ABG Glucose VBG pH Oxyhemoglobin Carboxyhemoglobin Sodium Potassium Chloride Carbon Dioxide BUN Creatinine Glucose POC Glucose 144 H 145 H 151 H Lactic Acid Calcium Phosphorus Magnesium Total Bilirubin AST ALT Ammonia Lactate Dehydrogenase Total Creatine Kinase CK-MB (CK-2) Troponin T NT-Pro-B Natriuret Pep Total Protein Albumin Triglycerides TSH Arterial Blood Glucose Arterial Blood Ionized Calcium Urine pH Urine WBC (Auto) Urine Creatinine 10/18/20 10/18/20 10/19/20 23:16 Unknown 04:55 WBC RBC Hgb Hct RDW Lymph % (Auto) [place] % (Auto) Eos % (Auto) Lymph # (Auto) [place] # (Auto) Eos # (Auto) Seg Neutrophils % Lymphocytes % (Manual) Monocytes % (Manual) Seg Neutrophils # Seg Neutrophils # Man Lymphocytes # (Manual) Monocytes # (Manual) D-Dimer Heparin Anti-Xa Level ABG pH POC ABG pCO2 POC ABG pO2 ABG pO2 ABG HCO3 ABG O2 Saturation ABG Base Excess ABG Hemoglobin ABG Oxyhemoglobin ABG Sodium ABG Potassium ABG Chloride ABG Glucose VBG pH Oxyhemoglobin Carboxyhemoglobin Sodium Potassium Chloride Carbon Dioxide BUN 104 H Creatinine 3.1 H Glucose 139 H POC Glucose 123 H Lactic Acid Calcium Phosphorus Magnesium Total Bilirubin AST ALT Ammonia Lactate Dehydrogenase Total Creatine Kinase CK-MB (CK-2) Troponin T NT-Pro-B Natriuret Pep Total Protein Albumin Triglycerides TSH Arterial Blood Glucose Arterial Blood Ionized Calcium Urine pH Urine WBC (Auto) 115.0 H Urine Creatinine 10/19/20 10/19/20 10/19/20 04:55 11:35 13:14 WBC 15.1 H RBC Hgb 11.1 L Hct 34.4 L RDW Lymph % (Auto) 4.2 L [place] % (Auto) 11.9 H Eos % (Auto) Lymph # (Auto) 0.6 L [place] # (Auto) 1.8 H Eos # (Auto) Seg Neutrophils % 82.0 H Lymphocytes % (Manual) Monocytes % (Manual) Seg Neutrophils # 12.4 H Seg Neutrophils # Man Lymphocytes # (Manual) Monocytes # (Manual) D-Dimer Heparin Anti-Xa Level ABG pH POC ABG pCO2 POC ABG pO2 ABG pO2 ABG HCO3 ABG O2 Saturation ABG Base Excess ABG Hemoglobin ABG Oxyhemoglobin ABG Sodium ABG Potassium ABG Chloride ABG Glucose VBG pH Oxyhemoglobin Carboxyhemoglobin Sodium Potassium Chloride Carbon Dioxide BUN Creatinine Glucose POC Glucose 136 H Lactic Acid Calcium Phosphorus Magnesium Total Bilirubin AST ALT Ammonia Lactate Dehydrogenase Total Creatine Kinase CK-MB (CK-2) Troponin T NT-Pro-B Natriuret Pep Total Protein Albumin Triglycerides TSH Arterial Blood Glucose Arterial Blood Ionized Calcium Urine pH Urine WBC (Auto) Urine Creatinine 93.7 H 10/19/20 10/19/20 10/20/20 17:53 23:39 04:30 WBC RBC Hgb Hct RDW Lymph % (Auto) [place] % (Auto) Eos % (Auto) Lymph # (Auto) [place] # (Auto) Eos # (Auto) Seg Neutrophils % Lymphocytes % (Manual) Monocytes % (Manual) Seg Neutrophils # Seg Neutrophils # Man Lymphocytes # (Manual) Monocytes # (Manual) D-Dimer Heparin Anti-Xa Level ABG pH POC ABG pCO2 POC ABG pO2 ABG pO2 ABG HCO3 ABG O2 Saturation ABG Base Excess ABG Hemoglobin ABG Oxyhemoglobin ABG Sodium ABG Potassium ABG Chloride ABG Glucose VBG pH Oxyhemoglobin Carboxyhemoglobin Sodium Potassium Chloride Carbon Dioxide BUN 104 H Creatinine 2.8 H Glucose 151 H POC Glucose 137 H 133 H Lactic Acid Calcium Phosphorus Magnesium Total Bilirubin AST ALT Ammonia Lactate Dehydrogenase Total Creatine Kinase CK-MB (CK-2) Troponin T NT-Pro-B Natriuret Pep Total Protein Albumin Triglycerides TSH Arterial Blood Glucose Arterial Blood Ionized Calcium Urine pH Urine WBC (Auto) Urine Creatinine 10/20/20 10/20/20 10/20/20 04:30 05:38 11:34 WBC 17.9 H RBC Hgb 11.7 L Hct RDW Lymph % (Auto) [place] % (Auto) Eos % (Auto) Lymph # (Auto) [place] # (Auto) Eos # (Auto) Seg Neutrophils % Lymphocytes % (Manual) Monocytes % (Manual) Seg Neutrophils # Seg Neutrophils # Man Lymphocytes # (Manual) Monocytes # (Manual) D-Dimer Heparin Anti-Xa Level ABG pH POC ABG pCO2 POC ABG pO2 ABG pO2 ABG HCO3 ABG O2 Saturation ABG Base Excess ABG Hemoglobin ABG Oxyhemoglobin ABG Sodium ABG Potassium ABG Chloride ABG Glucose VBG pH Oxyhemoglobin Carboxyhemoglobin Sodium Potassium Chloride Carbon Dioxide BUN Creatinine Glucose POC Glucose 164 H 148 H Lactic Acid Calcium Phosphorus Magnesium Total Bilirubin AST ALT Ammonia Lactate Dehydrogenase Total Creatine Kinase CK-MB (CK-2) Troponin T NT-Pro-B Natriuret Pep Total Protein Albumin Triglycerides TSH Arterial Blood Glucose Arterial Blood Ionized Calcium Urine pH Urine WBC (Auto) Urine Creatinine 10/20/20 10/20/20 10/20/20 17:40 20:20 23:29 WBC RBC Hgb Hct RDW Lymph % (Auto) [place] % (Auto) Eos % (Auto) Lymph # (Auto) [place] # (Auto) Eos # (Auto) Seg Neutrophils % Lymphocytes % (Manual) Monocytes % (Manual) Seg Neutrophils # Seg Neutrophils # Man Lymphocytes # (Manual) Monocytes # (Manual) D-Dimer Heparin Anti-Xa Level ABG pH 7.292 L POC ABG pCO2 68.5 H POC ABG pO2 ABG pO2 ABG HCO3 ABG O2 Saturation ABG Base Excess ABG Hemoglobin 11.6 L ABG Oxyhemoglobin ABG Sodium ABG Potassium ABG Chloride ABG Glucose 145 H VBG pH Oxyhemoglobin Carboxyhemoglobin Sodium Potassium Chloride Carbon Dioxide BUN Creatinine Glucose POC Glucose 130 H 136 H Lactic Acid Calcium Phosphorus Magnesium Total Bilirubin AST ALT Ammonia Lactate Dehydrogenase Total Creatine Kinase CK-MB (CK-2) Troponin T NT-Pro-B Natriuret Pep Total Protein Albumin Triglycerides TSH Arterial Blood Glucose 145 H Arterial Blood Ionized Calcium Urine pH Urine WBC (Auto) Urine Creatinine 10/21/20 10/21/20 10/21/20 04:20 06:26 06:30 WBC RBC Hgb Hct RDW Lymph % (Auto) [place] % (Auto) Eos % (Auto) Lymph # (Auto) [place] # (Auto) Eos # (Auto) Seg Neutrophils % Lymphocytes % (Manual) Monocytes % (Manual) Seg Neutrophils # Seg Neutrophils # Man Lymphocytes # (Manual) Monocytes # (Manual) D-Dimer Heparin Anti-Xa Level ABG pH 7.262 L POC ABG pCO2 72.4 H POC ABG pO2 81.6 L ABG pO2 ABG HCO3 ABG O2 Saturation ABG Base Excess ABG Hemoglobin 11.6 L ABG Oxyhemoglobin ABG Sodium ABG Potassium ABG Chloride ABG Glucose 140 H VBG pH Oxyhemoglobin Carboxyhemoglobin Sodium Potassium Chloride Carbon Dioxide 33 H BUN 104 H Creatinine 2.9 H Glucose 153 H POC Glucose 128 H Lactic Acid Calcium Phosphorus Magnesium Total Bilirubin AST ALT Ammonia Lactate Dehydrogenase Total Creatine Kinase CK-MB (CK-2) Troponin T NT-Pro-B Natriuret Pep Total Protein Albumin Triglycerides TSH Arterial Blood Glucose 140 H Arterial Blood Ionized Calcium Urine pH Urine WBC (Auto) Urine Creatinine 10/21/20 10/21/20 10/21/20 06:30 11:24 17:21 WBC 13.3 H RBC Hgb 10.7 L Hct 32.7 L RDW Lymph % (Auto) [place] % (Auto) Eos % (Auto) Lymph # (Auto) [place] # (Auto) Eos # (Auto) Seg Neutrophils % Lymphocytes % (Manual) Monocytes % (Manual) Seg Neutrophils # Seg Neutrophils # Man Lymphocytes # (Manual) Monocytes # (Manual) D-Dimer Heparin Anti-Xa Level ABG pH POC ABG pCO2 POC ABG pO2 ABG pO2 ABG HCO3 ABG O2 Saturation ABG Base Excess ABG Hemoglobin ABG Oxyhemoglobin ABG Sodium ABG Potassium ABG Chloride ABG Glucose VBG pH Oxyhemoglobin Carboxyhemoglobin Sodium Potassium Chloride Carbon Dioxide BUN Creatinine Glucose POC Glucose 178 H 138 H Lactic Acid Calcium Phosphorus Magnesium Total Bilirubin AST ALT Ammonia Lactate Dehydrogenase Total Creatine Kinase CK-MB (CK-2) Troponin T NT-Pro-B Natriuret Pep Total Protein Albumin Triglycerides TSH Arterial Blood Glucose Arterial Blood Ionized Calcium Urine pH Urine WBC (Auto) Urine Creatinine 10/22/20 10/22/20 10/22/20 00:05 04:30 06:15 WBC RBC Hgb Hct RDW Lymph % (Auto) [place] % (Auto) Eos % (Auto) Lymph # (Auto) [place] # (Auto) Eos # (Auto) Seg Neutrophils % Lymphocytes % (Manual) Monocytes % (Manual) Seg Neutrophils # Seg Neutrophils # Man Lymphocytes # (Manual) Monocytes # (Manual) D-Dimer Heparin Anti-Xa Level ABG pH 7.225 L POC ABG pCO2 76.6 H POC ABG pO2 ABG pO2 ABG HCO3 ABG O2 Saturation ABG Base Excess ABG Hemoglobin 11.1 L ABG Oxyhemoglobin ABG Sodium ABG Potassium ABG Chloride ABG Glucose 151 H VBG pH Oxyhemoglobin Carboxyhemoglobin Sodium Potassium Chloride Carbon Dioxide 32 H BUN 103 H Creatinine 2.7 H Glucose 151 H POC Glucose 135 H Lactic Acid Calcium Phosphorus Magnesium Total Bilirubin AST ALT Ammonia Lactate Dehydrogenase Total Creatine Kinase CK-MB (CK-2) Troponin T NT-Pro-B Natriuret Pep Total Protein Albumin Triglycerides TSH Arterial Blood Glucose 151 H Arterial Blood Ionized Calcium Urine pH Urine WBC (Auto) Urine Creatinine 10/22/20 10/22/20 10/22/20 06:18 11:34 11:44 WBC RBC Hgb Hct RDW Lymph % (Auto) [place] % (Auto) Eos % (Auto) Lymph # (Auto) [place] # (Auto) Eos # (Auto) Seg Neutrophils % Lymphocytes % (Manual) Monocytes % (Manual) Seg Neutrophils # Seg Neutrophils # Man Lymphocytes # (Manual) Monocytes # (Manual) D-Dimer Heparin Anti-Xa Level ABG pH 7.278 L POC ABG pCO2 67.8 H POC ABG pO2 ABG pO2 ABG HCO3 ABG O2 Saturation ABG Base Excess ABG Hemoglobin 10.2 L ABG Oxyhemoglobin ABG Sodium ABG Potassium ABG Chloride ABG Glucose 172 H VBG pH Oxyhemoglobin Carboxyhemoglobin Sodium Potassium Chloride Carbon Dioxide BUN Creatinine Glucose POC Glucose 137 H 147 H Lactic Acid Calcium Phosphorus Magnesium Total Bilirubin AST ALT Ammonia Lactate Dehydrogenase Total Creatine Kinase CK-MB (CK-2) Troponin T NT-Pro-B Natriuret Pep Total Protein Albumin Triglycerides TSH Arterial Blood Glucose 172 H Arterial Blood Ionized Calcium Urine pH Urine WBC (Auto) Urine Creatinine 10/22/20 10/22/20 10/23/20 17:40 23:55 05:11 WBC RBC Hgb Hct RDW Lymph % (Auto) [place] % (Auto) Eos % (Auto) Lymph # (Auto) [place] # (Auto) Eos # (Auto) Seg Neutrophils % Lymphocytes % (Manual) Monocytes % (Manual) Seg Neutrophils # Seg Neutrophils # Man Lymphocytes # (Manual) Monocytes # (Manual) D-Dimer Heparin Anti-Xa Level ABG pH POC ABG pCO2 63.6 H POC ABG pO2 81.2 L ABG pO2 ABG HCO3 ABG O2 Saturation ABG Base Excess ABG Hemoglobin 10.6 L ABG Oxyhemoglobin ABG Sodium ABG Potassium ABG Chloride 109.0 H ABG Glucose 149 H VBG pH Oxyhemoglobin Carboxyhemoglobin Sodium Potassium Chloride Carbon Dioxide BUN Creatinine Glucose POC Glucose 141 H 139 H Lactic Acid Calcium Phosphorus Magnesium Total Bilirubin AST ALT Ammonia Lactate Dehydrogenase Total Creatine Kinase CK-MB (CK-2) Troponin T NT-Pro-B Natriuret Pep Total Protein Albumin Triglycerides TSH Arterial Blood Glucose 149 H Arterial Blood Ionized Calcium Urine pH Urine WBC (Auto) Urine Creatinine 10/23/20 10/23/20 10/23/20 05:39 06:00 11:32 WBC RBC Hgb Hct RDW Lymph % (Auto) [place] % (Auto) Eos % (Auto) Lymph # (Auto) [place] # (Auto) Eos # (Auto) Seg Neutrophils % Lymphocytes % (Manual) Monocytes % (Manual) Seg Neutrophils # Seg Neutrophils # Man Lymphocytes # (Manual) Monocytes # (Manual) D-Dimer Heparin Anti-Xa Level ABG pH POC ABG pCO2 POC ABG pO2 ABG pO2 ABG HCO3 ABG O2 Saturation ABG Base Excess ABG Hemoglobin ABG Oxyhemoglobin ABG Sodium ABG Potassium ABG Chloride ABG Glucose VBG pH Oxyhemoglobin Carboxyhemoglobin Sodium 146 H Potassium Chloride Carbon Dioxide 35 H BUN 92 H Creatinine 2.0 H Glucose 144 H POC Glucose 139 H 176 H Lactic Acid Calcium Phosphorus Magnesium Total Bilirubin AST ALT Ammonia Lactate Dehydrogenase Total Creatine Kinase CK-MB (CK-2) Troponin T NT-Pro-B Natriuret Pep Total Protein Albumin Triglycerides TSH Arterial Blood Glucose Arterial Blood Ionized Calcium Urine pH Urine WBC (Auto) Urine Creatinine 10/23/20 10/23/20 10/24/20 11:34 17:55 05:33 WBC RBC Hgb Hct RDW Lymph % (Auto) [place] % (Auto) Eos % (Auto) Lymph # (Auto) [place] # (Auto) Eos # (Auto) Seg Neutrophils % Lymphocytes % (Manual) Monocytes % (Manual) Seg Neutrophils # Seg Neutrophils # Man Lymphocytes # (Manual) Monocytes # (Manual) D-Dimer Heparin Anti-Xa Level ABG pH POC ABG pCO2 POC ABG pO2 ABG pO2 ABG HCO3 ABG O2 Saturation ABG Base Excess ABG Hemoglobin ABG Oxyhemoglobin ABG Sodium ABG Potassium ABG Chloride ABG Glucose VBG pH Oxyhemoglobin Carboxyhemoglobin Sodium 147 H Potassium Chloride Carbon Dioxide 32 H BUN 76 H Creatinine 1.7 H Glucose 172 H POC Glucose 173 H 135 H Lactic Acid Calcium Phosphorus Magnesium Total Bilirubin AST ALT Ammonia Lactate Dehydrogenase Total Creatine Kinase CK-MB (CK-2) Troponin T NT-Pro-B Natriuret Pep Total Protein Albumin Triglycerides TSH Arterial Blood Glucose Arterial Blood Ionized Calcium Urine pH Urine WBC (Auto) Urine Creatinine 10/24/20 10/24/20 10/24/20 05:41 12:09 18:09 WBC RBC Hgb Hct RDW Lymph % (Auto) [place] % (Auto) Eos % (Auto) Lymph # (Auto) [place] # (Auto) Eos # (Auto) Seg Neutrophils % Lymphocytes % (Manual) Monocytes % (Manual) Seg Neutrophils # Seg Neutrophils # Man Lymphocytes # (Manual) Monocytes # (Manual) D-Dimer Heparin Anti-Xa Level ABG pH POC ABG pCO2 POC ABG pO2 ABG pO2 ABG HCO3 ABG O2 Saturation ABG Base Excess ABG Hemoglobin ABG Oxyhemoglobin ABG Sodium ABG Potassium ABG Chloride ABG Glucose VBG pH Oxyhemoglobin Carboxyhemoglobin Sodium Potassium Chloride Carbon Dioxide BUN Creatinine Glucose POC Glucose 156 H 154 H 132 H Lactic Acid Calcium Phosphorus Magnesium Total Bilirubin AST ALT Ammonia Lactate Dehydrogenase Total Creatine Kinase CK-MB (CK-2) Troponin T NT-Pro-B Natriuret Pep Total Protein Albumin Triglycerides TSH Arterial Blood Glucose Arterial Blood Ionized Calcium Urine pH Urine WBC (Auto) Urine Creatinine 10/24/20 10/25/20 10/25/20 23:39 05:29 08:55 WBC RBC Hgb Hct RDW Lymph % (Auto) [place] % (Auto) Eos % (Auto) Lymph # (Auto) [place] # (Auto) Eos # (Auto) Seg Neutrophils % Lymphocytes % (Manual) Monocytes % (Manual) Seg Neutrophils # Seg Neutrophils # Man Lymphocytes # (Manual) Monocytes # (Manual) D-Dimer Heparin Anti-Xa Level ABG pH POC ABG pCO2 POC ABG pO2 ABG pO2 ABG HCO3 ABG O2 Saturation ABG Base Excess ABG Hemoglobin ABG Oxyhemoglobin ABG Sodium ABG Potassium ABG Chloride ABG Glucose VBG pH Oxyhemoglobin Carboxyhemoglobin Sodium 150 H Potassium Chloride 108.3 H Carbon Dioxide 32 H BUN 57 H Creatinine 1.5 H Glucose 142 H POC Glucose 131 H 142 H Lactic Acid Calcium Phosphorus Magnesium Total Bilirubin AST ALT Ammonia Lactate Dehydrogenase Total Creatine Kinase CK-MB (CK-2) Troponin T NT-Pro-B Natriuret Pep Total Protein Albumin Triglycerides TSH Arterial Blood Glucose Arterial Blood Ionized Calcium Urine pH Urine WBC (Auto) Urine Creatinine 10/25/20 10/25/20 10/25/20 08:55 11:08 18:10 WBC 14.3 H RBC 3.57 L Hgb 10.3 L Hct 31.6 L RDW Lymph % (Auto) [place] % (Auto) Eos % (Auto) Lymph # (Auto) [place] # (Auto) Eos # (Auto) Seg Neutrophils % Lymphocytes % (Manual) Monocytes % (Manual) Seg Neutrophils # Seg Neutrophils # Man Lymphocytes # (Manual) Monocytes # (Manual) D-Dimer Heparin Anti-Xa Level ABG pH POC ABG pCO2 52.3 H POC ABG pO2 ABG pO2 ABG HCO3 ABG O2 Saturation ABG Base Excess ABG Hemoglobin 11.2 L ABG Oxyhemoglobin ABG Sodium ABG Potassium ABG Chloride 108.0 H ABG Glucose 167 H VBG pH Oxyhemoglobin Carboxyhemoglobin Sodium Potassium Chloride Carbon Dioxide BUN Creatinine Glucose POC Glucose 157 H Lactic Acid Calcium Phosphorus Magnesium Total Bilirubin AST ALT Ammonia Lactate Dehydrogenase Total Creatine Kinase CK-MB (CK-2) Troponin T NT-Pro-B Natriuret Pep Total Protein Albumin Triglycerides TSH Arterial Blood Glucose 167 H Arterial Blood Ionized Calcium Urine pH Urine WBC (Auto) Urine Creatinine 10/25/20 10/26/20 10/26/20 18:20 00:20 06:08 WBC RBC Hgb Hct RDW Lymph % (Auto) [place] % (Auto) Eos % (Auto) Lymph # (Auto) [place] # (Auto) Eos # (Auto) Seg Neutrophils % Lymphocytes % (Manual) Monocytes % (Manual) Seg Neutrophils # Seg Neutrophils # Man Lymphocytes # (Manual) Monocytes # (Manual) D-Dimer Heparin Anti-Xa Level ABG pH POC ABG pCO2 POC ABG pO2 ABG pO2 ABG HCO3 ABG O2 Saturation ABG Base Excess ABG Hemoglobin ABG Oxyhemoglobin ABG Sodium ABG Potassium ABG Chloride ABG Glucose VBG pH Oxyhemoglobin Carboxyhemoglobin Sodium Potassium Chloride Carbon Dioxide BUN Creatinine Glucose POC Glucose 127 H 108 H 119 H Lactic Acid Calcium Phosphorus Magnesium Total Bilirubin AST ALT Ammonia Lactate Dehydrogenase Total Creatine Kinase CK-MB (CK-2) Troponin T NT-Pro-B Natriuret Pep Total Protein Albumin Triglycerides TSH Arterial Blood Glucose Arterial Blood Ionized Calcium Urine pH Urine WBC (Auto) Urine Creatinine 10/26/20 10/26/20 10/26/20 07:38 07:38 11:28 WBC 13.5 H RBC 3.37 L Hgb 9.8 L Hct 30.0 L RDW Lymph % (Auto) [place] % (Auto) Eos % (Auto) Lymph # (Auto) [place] # (Auto) Eos # (Auto) Seg Neutrophils % Lymphocytes % (Manual) Monocytes % (Manual) Seg Neutrophils # Seg Neutrophils # Man Lymphocytes # (Manual) Monocytes # (Manual) D-Dimer Heparin Anti-Xa Level ABG pH POC ABG pCO2 POC ABG pO2 ABG pO2 ABG HCO3 ABG O2 Saturation ABG Base Excess ABG Hemoglobin ABG Oxyhemoglobin ABG Sodium ABG Potassium ABG Chloride ABG Glucose VBG pH Oxyhemoglobin Carboxyhemoglobin Sodium 149 H Potassium Chloride 107.6 H Carbon Dioxide 34 H BUN 49 H Creatinine 1.4 H Glucose 137 H POC Glucose 148 H Lactic Acid Calcium Phosphorus Magnesium Total Bilirubin AST ALT Ammonia Lactate Dehydrogenase Total Creatine Kinase CK-MB (CK-2) Troponin T NT-Pro-B Natriuret Pep Total Protein Albumin Triglycerides TSH Arterial Blood Glucose Arterial Blood Ionized Calcium Urine pH Urine WBC (Auto) Urine Creatinine 10/26/20 10/26/20 10/27/20 18:17 23:37 05:08 WBC RBC Hgb Hct RDW Lymph % (Auto) [place] % (Auto) Eos % (Auto) Lymph # (Auto) [place] # (Auto) Eos # (Auto) Seg Neutrophils % Lymphocytes % (Manual) Monocytes % (Manual) Seg Neutrophils # Seg Neutrophils # Man Lymphocytes # (Manual) Monocytes # (Manual) D-Dimer Heparin Anti-Xa Level ABG pH POC ABG pCO2 POC ABG pO2 ABG pO2 ABG HCO3 ABG O2 Saturation ABG Base Excess ABG Hemoglobin ABG Oxyhemoglobin ABG Sodium ABG Potassium ABG Chloride ABG Glucose VBG pH Oxyhemoglobin Carboxyhemoglobin Sodium Potassium Chloride Carbon Dioxide BUN Creatinine Glucose POC Glucose 121 H 152 H 120 H Lactic Acid Calcium Phosphorus Magnesium Total Bilirubin AST ALT Ammonia Lactate Dehydrogenase Total Creatine Kinase CK-MB (CK-2) Troponin T NT-Pro-B Natriuret Pep Total Protein Albumin Triglycerides TSH Arterial Blood Glucose Arterial Blood Ionized Calcium Urine pH Urine WBC (Auto) Urine Creatinine 10/27/20 10/27/20 10/27/20 07:30 07:30 11:59 WBC RBC 3.46 L Hgb 10.2 L Hct 30.9 L RDW Lymph % (Auto) [place] % (Auto) Eos % (Auto) Lymph # (Auto) [place] # (Auto) Eos # (Auto) Seg Neutrophils % Lymphocytes % (Manual) Monocytes % (Manual) Seg Neutrophils # Seg Neutrophils # Man Lymphocytes # (Manual) Monocytes # (Manual) D-Dimer Heparin Anti-Xa Level ABG pH POC ABG pCO2 POC ABG pO2 ABG pO2 ABG HCO3 ABG O2 Saturation ABG Base Excess ABG Hemoglobin ABG Oxyhemoglobin ABG Sodium ABG Potassium ABG Chloride ABG Glucose VBG pH Oxyhemoglobin Carboxyhemoglobin Sodium 146 H Potassium Chloride Carbon Dioxide 34 H BUN 45 H Creatinine Glucose 131 H POC Glucose 143 H Lactic Acid Calcium Phosphorus Magnesium Total Bilirubin AST ALT Ammonia Lactate Dehydrogenase Total Creatine Kinase CK-MB (CK-2) Troponin T NT-Pro-B Natriuret Pep Total Protein Albumin Triglycerides TSH Arterial Blood Glucose Arterial Blood Ionized Calcium Urine pH Urine WBC (Auto) Urine Creatinine 10/27/20 10/27/20 10/28/20 18:52 23:03 07:00 WBC RBC Hgb Hct RDW Lymph % (Auto) [place] % (Auto) Eos % (Auto) Lymph # (Auto) [place] # (Auto) Eos # (Auto) Seg Neutrophils % Lymphocytes % (Manual) Monocytes % (Manual) Seg Neutrophils # Seg Neutrophils # Man Lymphocytes # (Manual) Monocytes # (Manual) D-Dimer Heparin Anti-Xa Level ABG pH POC ABG pCO2 POC ABG pO2 ABG pO2 ABG HCO3 ABG O2 Saturation ABG Base Excess ABG Hemoglobin ABG Oxyhemoglobin ABG Sodium ABG Potassium ABG Chloride ABG Glucose VBG pH Oxyhemoglobin Carboxyhemoglobin Sodium 147 H Potassium Chloride Carbon Dioxide 35 H BUN 39 H Creatinine Glucose 133 H POC Glucose 119 H 158 H Lactic Acid Calcium Phosphorus Magnesium Total Bilirubin AST ALT Ammonia Lactate Dehydrogenase Total Creatine Kinase CK-MB (CK-2) Troponin T NT-Pro-B Natriuret Pep Total Protein Albumin Triglycerides TSH Arterial Blood Glucose Arterial Blood Ionized Calcium Urine pH Urine WBC (Auto) Urine Creatinine 10/28/20 10/28/20 10/28/20 09:00 11:47 17:15 WBC 12.5 H RBC 3.58 L Hgb 10.5 L Hct 32.1 L RDW Lymph % (Auto) [place] % (Auto) Eos % (Auto) Lymph # (Auto) [place] # (Auto) Eos # (Auto) Seg Neutrophils % Lymphocytes % (Manual) Monocytes % (Manual) Seg Neutrophils # Seg Neutrophils # Man Lymphocytes # (Manual) Monocytes # (Manual) D-Dimer Heparin Anti-Xa Level ABG pH POC ABG pCO2 POC ABG pO2 ABG pO2 ABG HCO3 ABG O2 Saturation ABG Base Excess ABG Hemoglobin ABG Oxyhemoglobin ABG Sodium ABG Potassium ABG Chloride ABG Glucose VBG pH Oxyhemoglobin Carboxyhemoglobin Sodium Potassium Chloride Carbon Dioxide BUN Creatinine Glucose POC Glucose 129 H 109 H Lactic Acid Calcium Phosphorus Magnesium Total Bilirubin AST ALT Ammonia Lactate Dehydrogenase Total Creatine Kinase CK-MB (CK-2) Troponin T NT-Pro-B Natriuret Pep Total Protein Albumin Triglycerides TSH Arterial Blood Glucose Arterial Blood Ionized Calcium Urine pH Urine WBC (Auto) Urine Creatinine 10/28/20 10/29/20 10/29/20 23:31 04:23 04:23 WBC 13.6 H RBC 3.47 L Hgb 10.5 L Hct 30.7 L RDW 15.4 H Lymph % (Auto) [place] % (Auto) Eos % (Auto) Lymph # (Auto) [place] # (Auto) Eos # (Auto) Seg Neutrophils % Lymphocytes % (Manual) Monocytes % (Manual) Seg Neutrophils # Seg Neutrophils # Man Lymphocytes # (Manual) Monocytes # (Manual) D-Dimer Heparin Anti-Xa Level ABG pH POC ABG pCO2 POC ABG pO2 ABG pO2 ABG HCO3 ABG O2 Saturation ABG Base Excess ABG Hemoglobin ABG Oxyhemoglobin ABG Sodium ABG Potassium ABG Chloride ABG Glucose VBG pH Oxyhemoglobin Carboxyhemoglobin Sodium Potassium Chloride Carbon Dioxide 35 H BUN 34 H Creatinine Glucose 107 H POC Glucose 138 H Lactic Acid Calcium Phosphorus Magnesium Total Bilirubin AST ALT Ammonia Lactate Dehydrogenase Total Creatine Kinase CK-MB (CK-2) Troponin T NT-Pro-B Natriuret Pep Total Protein Albumin Triglycerides TSH Arterial Blood Glucose Arterial Blood Ionized Calcium Urine pH Urine WBC (Auto) Urine Creatinine 10/29/20 10/29/20 10/29/20 05:21 11:49 23:19 WBC RBC Hgb Hct RDW Lymph % (Auto) [place] % (Auto) Eos % (Auto) Lymph # (Auto) [place] # (Auto) Eos # (Auto) Seg Neutrophils % Lymphocytes % (Manual) Monocytes % (Manual) Seg Neutrophils # Seg Neutrophils # Man Lymphocytes # (Manual) Monocytes # (Manual) D-Dimer Heparin Anti-Xa Level ABG pH POC ABG pCO2 POC ABG pO2 ABG pO2 ABG HCO3 ABG O2 Saturation ABG Base Excess ABG Hemoglobin ABG Oxyhemoglobin ABG Sodium ABG Potassium ABG Chloride ABG Glucose VBG pH Oxyhemoglobin Carboxyhemoglobin Sodium Potassium Chloride Carbon Dioxide BUN Creatinine Glucose POC Glucose 115 H 124 H 129 H Lactic Acid Calcium Phosphorus Magnesium Total Bilirubin AST ALT Ammonia Lactate Dehydrogenase Total Creatine Kinase CK-MB (CK-2) Troponin T NT-Pro-B Natriuret Pep Total Protein Albumin Triglycerides TSH Arterial Blood Glucose Arterial Blood Ionized Calcium Urine pH Urine WBC (Auto) Urine Creatinine 10/30/20 10/30/20 10/30/20 04:59 05:10 11:52 WBC RBC Hgb Hct RDW Lymph % (Auto) [place] % (Auto) Eos % (Auto) Lymph # (Auto) [place] # (Auto) Eos # (Auto) Seg Neutrophils % Lymphocytes % (Manual) Monocytes % (Manual) Seg Neutrophils # Seg Neutrophils # Man Lymphocytes # (Manual) Monocytes # (Manual) D-Dimer Heparin Anti-Xa Level ABG pH POC ABG pCO2 POC ABG pO2 ABG pO2 ABG HCO3 ABG O2 Saturation ABG Base Excess ABG Hemoglobin ABG Oxyhemoglobin ABG Sodium ABG Potassium ABG Chloride ABG Glucose VBG pH Oxyhemoglobin Carboxyhemoglobin Sodium Potassium Chloride Carbon Dioxide 34 H BUN 33 H Creatinine Glucose 128 H POC Glucose 126 H 132 H Lactic Acid Calcium Phosphorus Magnesium Total Bilirubin AST ALT Ammonia Lactate Dehydrogenase Total Creatine Kinase CK-MB (CK-2) Troponin T NT-Pro-B Natriuret Pep Total Protein Albumin Triglycerides TSH Arterial Blood Glucose Arterial Blood Ionized Calcium Urine pH Urine WBC (Auto) Urine Creatinine 10/30/20 10/30/20 10/31/20 16:59 23:19 04:00 WBC RBC Hgb Hct RDW Lymph % (Auto) [place] % (Auto) Eos % (Auto) Lymph # (Auto) [place] # (Auto) Eos # (Auto) Seg Neutrophils % Lymphocytes % (Manual) Monocytes % (Manual) Seg Neutrophils # Seg Neutrophils # Man Lymphocytes # (Manual) Monocytes # (Manual) D-Dimer Heparin Anti-Xa Level ABG pH POC ABG pCO2 POC ABG pO2 ABG pO2 ABG HCO3 ABG O2 Saturation ABG Base Excess ABG Hemoglobin ABG Oxyhemoglobin ABG Sodium ABG Potassium ABG Chloride ABG Glucose VBG pH Oxyhemoglobin Carboxyhemoglobin Sodium Potassium Chloride Carbon Dioxide 38 H BUN 32 H Creatinine Glucose 121 H POC Glucose 118 H 138 H Lactic Acid Calcium Phosphorus Magnesium Total Bilirubin AST ALT Ammonia Lactate Dehydrogenase Total Creatine Kinase CK-MB (CK-2) Troponin T NT-Pro-B Natriuret Pep Total Protein Albumin Triglycerides TSH Arterial Blood Glucose Arterial Blood Ionized Calcium Urine pH Urine WBC (Auto) Urine Creatinine 10/31/20 10/31/20 10/31/20 05:13 11:09 16:17 WBC RBC Hgb Hct RDW Lymph % (Auto) [place] % (Auto) Eos % (Auto) Lymph # (Auto) [place] # (Auto) Eos # (Auto) Seg Neutrophils % Lymphocytes % (Manual) Monocytes % (Manual) Seg Neutrophils # Seg Neutrophils # Man Lymphocytes # (Manual) Monocytes # (Manual) D-Dimer Heparin Anti-Xa Level ABG pH POC ABG pCO2 71.1 H POC ABG pO2 67.4 L ABG pO2 ABG HCO3 ABG O2 Saturation ABG Base Excess ABG Hemoglobin 10.9 L ABG Oxyhemoglobin 90.7 L ABG Sodium ABG Potassium ABG Chloride ABG Glucose 134 H VBG pH Oxyhemoglobin Carboxyhemoglobin Sodium Potassium Chloride Carbon Dioxide BUN Creatinine Glucose POC Glucose 110 H 138 H Lactic Acid Calcium Phosphorus Magnesium Total Bilirubin AST ALT Ammonia Lactate Dehydrogenase Total Creatine Kinase CK-MB (CK-2) Troponin T NT-Pro-B Natriuret Pep Total Protein Albumin Triglycerides TSH Arterial Blood Glucose 134 H Arterial Blood Ionized Calcium Urine pH Urine WBC (Auto) Urine Creatinine 10/31/20 10/31/20 11/01/20 18:16 23:56 04:09 WBC 11.3 H RBC 3.05 L Hgb 9.0 L Hct 27.3 L RDW Lymph % (Auto) [place] % (Auto) Eos % (Auto) Lymph # (Auto) [place] # (Auto) Eos # (Auto) Seg Neutrophils % Lymphocytes % (Manual) Monocytes % (Manual) Seg Neutrophils # Seg Neutrophils # Man Lymphocytes # (Manual) Monocytes # (Manual) D-Dimer Heparin Anti-Xa Level ABG pH POC ABG pCO2 POC ABG pO2 ABG pO2 ABG HCO3 ABG O2 Saturation ABG Base Excess ABG Hemoglobin ABG Oxyhemoglobin ABG Sodium ABG Potassium ABG Chloride ABG Glucose VBG pH Oxyhemoglobin Carboxyhemoglobin Sodium Potassium Chloride Carbon Dioxide BUN Creatinine Glucose POC Glucose 135 H 122 H Lactic Acid Calcium Phosphorus Magnesium Total Bilirubin AST ALT Ammonia Lactate Dehydrogenase Total Creatine Kinase CK-MB (CK-2) Troponin T NT-Pro-B Natriuret Pep Total Protein Albumin Triglycerides TSH Arterial Blood Glucose Arterial Blood Ionized Calcium Urine pH Urine WBC (Auto) Urine Creatinine 11/01/20 11/01/20 11/01/20 05:10 11:51 17:17 WBC RBC Hgb Hct RDW Lymph % (Auto) [place] % (Auto) Eos % (Auto) Lymph # (Auto) [place] # (Auto) Eos # (Auto) Seg Neutrophils % Lymphocytes % (Manual) Monocytes % (Manual) Seg Neutrophils # Seg Neutrophils # Man Lymphocytes # (Manual) Monocytes # (Manual) D-Dimer Heparin Anti-Xa Level ABG pH POC ABG pCO2 POC ABG pO2 ABG pO2 ABG HCO3 ABG O2 Saturation ABG Base Excess ABG Hemoglobin ABG Oxyhemoglobin ABG Sodium ABG Potassium ABG Chloride ABG Glucose VBG pH Oxyhemoglobin Carboxyhemoglobin Sodium Potassium Chloride Carbon Dioxide BUN Creatinine Glucose POC Glucose 123 H 123 H 120 H Lactic Acid Calcium Phosphorus Magnesium Total Bilirubin AST ALT Ammonia Lactate Dehydrogenase Total Creatine Kinase CK-MB (CK-2) Troponin T NT-Pro-B Natriuret Pep Total Protein Albumin Triglycerides TSH Arterial Blood Glucose Arterial Blood Ionized Calcium Urine pH Urine WBC (Auto) Urine Creatinine 11/02/20 11/02/20 11/02/20 03:14 05:37 05:37 WBC RBC Hgb 9.8 L Hct 29.5 L RDW Lymph % (Auto) [place] % (Auto) Eos % (Auto) Lymph # (Auto) [place] # (Auto) Eos # (Auto) Seg Neutrophils % Lymphocytes % (Manual) Monocytes % (Manual) Seg Neutrophils # Seg Neutrophils # Man Lymphocytes # (Manual) Monocytes # (Manual) D-Dimer Heparin Anti-Xa Level ABG pH POC ABG pCO2 58.9 H POC ABG pO2 79.9 L ABG pO2 ABG HCO3 ABG O2 Saturation ABG Base Excess ABG Hemoglobin 10.6 L ABG Oxyhemoglobin ABG Sodium ABG Potassium ABG Chloride ABG Glucose 110 H VBG pH Oxyhemoglobin Carboxyhemoglobin Sodium Potassium Chloride Carbon Dioxide 37 H BUN 28 H Creatinine Glucose 106 H POC Glucose Lactic Acid Calcium Phosphorus Magnesium Total Bilirubin AST ALT Ammonia Lactate Dehydrogenase Total Creatine Kinase CK-MB (CK-2) Troponin T NT-Pro-B Natriuret Pep Total Protein Albumin Triglycerides TSH Arterial Blood Glucose 110 H Arterial Blood Ionized Calcium Urine pH Urine WBC (Auto) Urine Creatinine 11/02/20 11/03/20 11/03/20 23:29 04:45 04:45 WBC 11.8 H RBC 3.07 L Hgb 9.0 L Hct 27.2 L RDW Lymph % (Auto) 11.4 L [place] % (Auto) 9.5 H Eos % (Auto) Lymph # (Auto) [place] # (Auto) 1.1 H Eos # (Auto) Seg Neutrophils % 75.9 H Lymphocytes % (Manual) Monocytes % (Manual) Seg Neutrophils # 9.0 H Seg Neutrophils # Man Lymphocytes # (Manual) Monocytes # (Manual) D-Dimer Heparin Anti-Xa Level ABG pH POC ABG pCO2 POC ABG pO2 ABG pO2 ABG HCO3 ABG O2 Saturation ABG Base Excess ABG Hemoglobin ABG Oxyhemoglobin ABG Sodium ABG Potassium ABG Chloride ABG Glucose VBG pH Oxyhemoglobin Carboxyhemoglobin Sodium 146 H Potassium Chloride Carbon Dioxide 39 H BUN 26 H Creatinine Glucose POC Glucose 129 H Lactic Acid Calcium Phosphorus Magnesium Total Bilirubin AST ALT Ammonia Lactate Dehydrogenase Total Creatine Kinase CK-MB (CK-2) Troponin T NT-Pro-B Natriuret Pep Total Protein Albumin Triglycerides TSH Arterial Blood Glucose Arterial Blood Ionized Calcium Urine pH Urine WBC (Auto) Urine Creatinine 11/03/20 11/03/20 11/03/20 05:05 11:51 17:43 WBC RBC Hgb Hct RDW Lymph % (Auto) [place] % (Auto) Eos % (Auto) Lymph # (Auto) [place] # (Auto) Eos # (Auto) Seg Neutrophils % Lymphocytes % (Manual) Monocytes % (Manual) Seg Neutrophils # Seg Neutrophils # Man Lymphocytes # (Manual) Monocytes # (Manual) D-Dimer Heparin Anti-Xa Level ABG pH 7.452 H POC ABG pCO2 55.4 H POC ABG pO2 129.1 H ABG pO2 ABG HCO3 ABG O2 Saturation ABG Base Excess ABG Hemoglobin 9.3 L ABG Oxyhemoglobin ABG Sodium ABG Potassium ABG Chloride ABG Glucose 99 H VBG pH Oxyhemoglobin Carboxyhemoglobin 1.7 H Sodium Potassium Chloride Carbon Dioxide BUN Creatinine Glucose POC Glucose 131 H 125 H Lactic Acid Calcium Phosphorus Magnesium Total Bilirubin AST ALT Ammonia Lactate Dehydrogenase Total Creatine Kinase CK-MB (CK-2) Troponin T NT-Pro-B Natriuret Pep Total Protein Albumin Triglycerides TSH Arterial Blood Glucose 99 H Arterial Blood Ionized Calcium Urine pH Urine WBC (Auto) Urine Creatinine 11/03/20 11/04/20 11/04/20 23:27 04:00 05:10 WBC RBC Hgb Hct RDW Lymph % (Auto) [place] % (Auto) Eos % (Auto) Lymph # (Auto) [place] # (Auto) Eos # (Auto) Seg Neutrophils % Lymphocytes % (Manual) Monocytes % (Manual) Seg Neutrophils # Seg Neutrophils # Man Lymphocytes # (Manual) Monocytes # (Manual) D-Dimer Heparin Anti-Xa Level ABG pH POC ABG pCO2 POC ABG pO2 ABG pO2 ABG HCO3 ABG O2 Saturation ABG Base Excess ABG Hemoglobin ABG Oxyhemoglobin ABG Sodium ABG Potassium ABG Chloride ABG Glucose VBG pH Oxyhemoglobin Carboxyhemoglobin Sodium Potassium Chloride 95.2 L Carbon Dioxide 40 H BUN 26 H Creatinine Glucose 128 H POC Glucose 148 H 126 H Lactic Acid Calcium Phosphorus Magnesium Total Bilirubin AST ALT Ammonia Lactate Dehydrogenase Total Creatine Kinase CK-MB (CK-2) Troponin T NT-Pro-B Natriuret Pep Total Protein Albumin Triglycerides TSH Arterial Blood Glucose Arterial Blood Ionized Calcium Urine pH Urine WBC (Auto) Urine Creatinine 11/04/20 11/04/20 11/04/20 11:39 18:00 21:18 WBC RBC Hgb Hct RDW Lymph % (Auto) [place] % (Auto) Eos % (Auto) Lymph # (Auto) [place] # (Auto) Eos # (Auto) Seg Neutrophils % Lymphocytes % (Manual) Monocytes % (Manual) Seg Neutrophils # Seg Neutrophils # Man Lymphocytes # (Manual) Monocytes # (Manual) D-Dimer Heparin Anti-Xa Level ABG pH 7.511 H POC ABG pCO2 49.0 H POC ABG pO2 ABG pO2 ABG HCO3 ABG O2 Saturation ABG Base Excess ABG Hemoglobin 9.5 L ABG Oxyhemoglobin ABG Sodium 135.7 L ABG Potassium ABG Chloride ABG Glucose 152 H VBG pH Oxyhemoglobin Carboxyhemoglobin Sodium Potassium Chloride Carbon Dioxide BUN Creatinine Glucose POC Glucose 142 H 130 H Lactic Acid Calcium Phosphorus Magnesium Total Bilirubin AST ALT Ammonia Lactate Dehydrogenase Total Creatine Kinase CK-MB (CK-2) Troponin T NT-Pro-B Natriuret Pep Total Protein Albumin Triglycerides TSH Arterial Blood Glucose 152 H Arterial Blood Ionized Calcium 4.3 L Urine pH Urine WBC (Auto) Urine Creatinine 11/04/20 11/05/20 11/05/20 23:19 03:30 03:30 WBC RBC 3.02 L Hgb 9.1 L Hct 26.7 L RDW Lymph % (Auto) [place] % (Auto) Eos % (Auto) Lymph # (Auto) [place] # (Auto) Eos # (Auto) Seg Neutrophils % Lymphocytes % (Manual) Monocytes % (Manual) Seg Neutrophils # Seg Neutrophils # Man Lymphocytes # (Manual) Monocytes # (Manual) D-Dimer Heparin Anti-Xa Level ABG pH POC ABG pCO2 POC ABG pO2 ABG pO2 ABG HCO3 ABG O2 Saturation ABG Base Excess ABG Hemoglobin ABG Oxyhemoglobin ABG Sodium ABG Potassium ABG Chloride ABG Glucose VBG pH Oxyhemoglobin Carboxyhemoglobin Sodium Potassium Chloride 93.6 L Carbon Dioxide 40 H BUN 24 H Creatinine Glucose 121 H POC Glucose 126 H Lactic Acid Calcium Phosphorus Magnesium Total Bilirubin AST ALT Ammonia Lactate Dehydrogenase Total Creatine Kinase CK-MB (CK-2) Troponin T NT-Pro-B Natriuret Pep Total Protein Albumin Triglycerides TSH Arterial Blood Glucose Arterial Blood Ionized Calcium Urine pH Urine WBC (Auto) Urine Creatinine 11/05/20 11/05/20 11/05/20 05:24 11:37 17:37 WBC RBC Hgb Hct RDW Lymph % (Auto) [place] % (Auto) Eos % (Auto) Lymph # (Auto) [place] # (Auto) Eos # (Auto) Seg Neutrophils % Lymphocytes % (Manual) Monocytes % (Manual) Seg Neutrophils # Seg Neutrophils # Man Lymphocytes # (Manual) Monocytes # (Manual) D-Dimer Heparin Anti-Xa Level ABG pH POC ABG pCO2 POC ABG pO2 ABG pO2 ABG HCO3 ABG O2 Saturation ABG Base Excess ABG Hemoglobin ABG Oxyhemoglobin ABG Sodium ABG Potassium ABG Chloride ABG Glucose VBG pH Oxyhemoglobin Carboxyhemoglobin Sodium Potassium Chloride Carbon Dioxide BUN Creatinine Glucose POC Glucose 124 H 125 H 153 H Lactic Acid Calcium Phosphorus Magnesium Total Bilirubin AST ALT Ammonia Lactate Dehydrogenase Total Creatine Kinase CK-MB (CK-2) Troponin T NT-Pro-B Natriuret Pep Total Protein Albumin Triglycerides TSH Arterial Blood Glucose Arterial Blood Ionized Calcium Urine pH Urine WBC (Auto) Urine Creatinine 11/05/20 11/06/20 11/06/20 23:20 05:24 12:17 WBC RBC Hgb Hct RDW Lymph % (Auto) [place] % (Auto) Eos % (Auto) Lymph # (Auto) [place] # (Auto) Eos # (Auto) Seg Neutrophils % Lymphocytes % (Manual) Monocytes % (Manual) Seg Neutrophils # Seg Neutrophils # Man Lymphocytes # (Manual) Monocytes # (Manual) D-Dimer Heparin Anti-Xa Level ABG pH POC ABG pCO2 POC ABG pO2 ABG pO2 ABG HCO3 ABG O2 Saturation ABG Base Excess ABG Hemoglobin ABG Oxyhemoglobin ABG Sodium ABG Potassium ABG Chloride ABG Glucose VBG pH Oxyhemoglobin Carboxyhemoglobin Sodium Potassium Chloride Carbon Dioxide BUN Creatinine Glucose POC Glucose 133 H 143 H 139 H Lactic Acid Calcium Phosphorus Magnesium Total Bilirubin AST ALT Ammonia Lactate Dehydrogenase Total Creatine Kinase CK-MB (CK-2) Troponin T NT-Pro-B Natriuret Pep Total Protein Albumin Triglycerides TSH Arterial Blood Glucose Arterial Blood Ionized Calcium Urine pH Urine WBC (Auto) Urine Creatinine 11/06/20 11/06/20 11/07/20 17:38 23:26 04:50 WBC RBC 3.24 L Hgb 9.6 L Hct 29.0 L RDW Lymph % (Auto) [place] % (Auto) 10.3 H Eos % (Auto) 6.9 H Lymph # (Auto) [place] # (Auto) Eos # (Auto) 0.5 H Seg Neutrophils % Lymphocytes % (Manual) Monocytes % (Manual) Seg Neutrophils # Seg Neutrophils # Man Lymphocytes # (Manual) Monocytes # (Manual) D-Dimer Heparin Anti-Xa Level ABG pH POC ABG pCO2 POC ABG pO2 ABG pO2 ABG HCO3 ABG O2 Saturation ABG Base Excess ABG Hemoglobin ABG Oxyhemoglobin ABG Sodium ABG Potassium ABG Chloride ABG Glucose VBG pH Oxyhemoglobin Carboxyhemoglobin Sodium Potassium Chloride Carbon Dioxide BUN Creatinine Glucose POC Glucose 139 H 117 H Lactic Acid Calcium Phosphorus Magnesium Total Bilirubin AST ALT Ammonia Lactate Dehydrogenase Total Creatine Kinase CK-MB (CK-2) Troponin T NT-Pro-B Natriuret Pep Total Protein Albumin Triglycerides TSH Arterial Blood Glucose Arterial Blood Ionized Calcium Urine pH Urine WBC (Auto) Urine Creatinine 11/07/20 11/07/20 11/07/20 04:50 05:10 12:22 WBC RBC Hgb Hct RDW Lymph % (Auto) [place] % (Auto) Eos % (Auto) Lymph # (Auto) [place] # (Auto) Eos # (Auto) Seg Neutrophils % Lymphocytes % (Manual) Monocytes % (Manual) Seg Neutrophils # Seg Neutrophils # Man Lymphocytes # (Manual) Monocytes # (Manual) D-Dimer Heparin Anti-Xa Level ABG pH POC ABG pCO2 POC ABG pO2 ABG pO2 ABG HCO3 ABG O2 Saturation ABG Base Excess ABG Hemoglobin ABG Oxyhemoglobin ABG Sodium ABG Potassium ABG Chloride ABG Glucose VBG pH Oxyhemoglobin Carboxyhemoglobin Sodium Potassium Chloride 97.2 L Carbon Dioxide 36 H BUN 25 H Creatinine Glucose 130 H POC Glucose 115 H 118 H Lactic Acid Calcium Phosphorus Magnesium Total Bilirubin AST ALT Ammonia Lactate Dehydrogenase Total Creatine Kinase CK-MB (CK-2) Troponin T NT-Pro-B Natriuret Pep Total Protein Albumin Triglycerides TSH Arterial Blood Glucose Arterial Blood Ionized Calcium Urine pH Urine WBC (Auto) Urine Creatinine 11/07/20 11/07/20 11/08/20 17:46 23:53 07:16 WBC RBC Hgb Hct RDW Lymph % (Auto) [place] % (Auto) Eos % (Auto) Lymph # (Auto) [place] # (Auto) Eos # (Auto) Seg Neutrophils % Lymphocytes % (Manual) Monocytes % (Manual) Seg Neutrophils # Seg Neutrophils # Man Lymphocytes # (Manual) Monocytes # (Manual) D-Dimer Heparin Anti-Xa Level ABG pH POC ABG pCO2 POC ABG pO2 ABG pO2 ABG HCO3 ABG O2 Saturation ABG Base Excess ABG Hemoglobin ABG Oxyhemoglobin ABG Sodium ABG Potassium ABG Chloride ABG Glucose VBG pH Oxyhemoglobin Carboxyhemoglobin Sodium Potassium Chloride Carbon Dioxide BUN Creatinine Glucose POC Glucose 150 H 141 H 134 H Lactic Acid Calcium Phosphorus Magnesium Total Bilirubin AST ALT Ammonia Lactate Dehydrogenase Total Creatine Kinase CK-MB (CK-2) Troponin T NT-Pro-B Natriuret Pep Total Protein Albumin Triglycerides TSH Arterial Blood Glucose Arterial Blood Ionized Calcium Urine pH Urine WBC (Auto) Urine Creatinine 11/08/20 11/08/20 11/08/20 11:35 17:59 23:50 WBC RBC Hgb Hct RDW Lymph % (Auto) [place] % (Auto) Eos % (Auto) Lymph # (Auto) [place] # (Auto) Eos # (Auto) Seg Neutrophils % Lymphocytes % (Manual) Monocytes % (Manual) Seg Neutrophils # Seg Neutrophils # Man Lymphocytes # (Manual) Monocytes # (Manual) D-Dimer Heparin Anti-Xa Level ABG pH POC ABG pCO2 POC ABG pO2 ABG pO2 ABG HCO3 ABG O2 Saturation ABG Base Excess ABG Hemoglobin ABG Oxyhemoglobin ABG Sodium ABG Potassium ABG Chloride ABG Glucose VBG pH Oxyhemoglobin Carboxyhemoglobin Sodium Potassium Chloride Carbon Dioxide BUN Creatinine Glucose POC Glucose 148 H 118 H 131 H Lactic Acid Calcium Phosphorus Magnesium Total Bilirubin AST ALT Ammonia Lactate Dehydrogenase Total Creatine Kinase CK-MB (CK-2) Troponin T NT-Pro-B Natriuret Pep Total Protein Albumin Triglycerides TSH Arterial Blood Glucose Arterial Blood Ionized Calcium Urine pH Urine WBC (Auto) Urine Creatinine 11/09/20 11/09/20 11/09/20 12:07 17:00 23:45 WBC RBC Hgb Hct RDW Lymph % (Auto) [place] % (Auto) Eos % (Auto) Lymph # (Auto) [place] # (Auto) Eos # (Auto) Seg Neutrophils % Lymphocytes % (Manual) Monocytes % (Manual) Seg Neutrophils # Seg Neutrophils # Man Lymphocytes # (Manual) Monocytes # (Manual) D-Dimer Heparin Anti-Xa Level ABG pH POC ABG pCO2 POC ABG pO2 ABG pO2 ABG HCO3 ABG O2 Saturation ABG Base Excess ABG Hemoglobin ABG Oxyhemoglobin ABG Sodium ABG Potassium ABG Chloride ABG Glucose VBG pH Oxyhemoglobin Carboxyhemoglobin Sodium Potassium Chloride Carbon Dioxide BUN Creatinine Glucose POC Glucose 133 H 126 H 129 H Lactic Acid Calcium Phosphorus Magnesium Total Bilirubin AST ALT Ammonia Lactate Dehydrogenase Total Creatine Kinase CK-MB (CK-2) Troponin T NT-Pro-B Natriuret Pep Total Protein Albumin Triglycerides TSH Arterial Blood Glucose Arterial Blood Ionized Calcium Urine pH Urine WBC (Auto) Urine Creatinine 11/10/20 11/10/20 11/10/20 05:43 11:47 17:56 WBC RBC Hgb Hct RDW Lymph % (Auto) [place] % (Auto) Eos % (Auto) Lymph # (Auto) [place] # (Auto) Eos # (Auto) Seg Neutrophils % Lymphocytes % (Manual) Monocytes % (Manual) Seg Neutrophils # Seg Neutrophils # Man Lymphocytes # (Manual) Monocytes # (Manual) D-Dimer Heparin Anti-Xa Level ABG pH POC ABG pCO2 POC ABG pO2 ABG pO2 ABG HCO3 ABG O2 Saturation ABG Base Excess ABG Hemoglobin ABG Oxyhemoglobin ABG Sodium ABG Potassium ABG Chloride ABG Glucose VBG pH Oxyhemoglobin Carboxyhemoglobin Sodium Potassium Chloride Carbon Dioxide BUN Creatinine Glucose POC Glucose 111 H 136 H 110 H Lactic Acid Calcium Phosphorus Magnesium Total Bilirubin AST ALT Ammonia Lactate Dehydrogenase Total Creatine Kinase CK-MB (CK-2) Troponin T NT-Pro-B Natriuret Pep Total Protein Albumin Triglycerides TSH Arterial Blood Glucose Arterial Blood Ionized Calcium Urine pH Urine WBC (Auto) Urine Creatinine 11/10/20 11/11/20 11/11/20 23:34 03:11 05:22 WBC RBC Hgb Hct RDW Lymph % (Auto) [place] % (Auto) Eos % (Auto) Lymph # (Auto) [place] # (Auto) Eos # (Auto) Seg Neutrophils % Lymphocytes % (Manual) Monocytes % (Manual) Seg Neutrophils # Seg Neutrophils # Man Lymphocytes # (Manual) Monocytes # (Manual) D-Dimer Heparin Anti-Xa Level ABG pH POC ABG pCO2 64.5 H POC ABG pO2 ABG pO2 ABG HCO3 ABG O2 Saturation ABG Base Excess ABG Hemoglobin 9.7 L ABG Oxyhemoglobin ABG Sodium ABG Potassium 5.0 H ABG Chloride ABG Glucose 148 H VBG pH Oxyhemoglobin Carboxyhemoglobin Sodium Potassium Chloride Carbon Dioxide BUN Creatinine Glucose POC Glucose 134 H 132 H Lactic Acid Calcium Phosphorus Magnesium Total Bilirubin AST ALT Ammonia Lactate Dehydrogenase Total Creatine Kinase CK-MB (CK-2) Troponin T NT-Pro-B Natriuret Pep Total Protein Albumin Triglycerides TSH Arterial Blood Glucose 148 H Arterial Blood Ionized Calcium Urine pH Urine WBC (Auto) Urine Creatinine 11/11/20 11/11/20 08:38 11:00 WBC RBC 2.79 L Hgb 8.4 L Hct 25.4 L RDW Lymph % (Auto) [place] % (Auto) Eos % (Auto) Lymph # (Auto) [place] # (Auto) Eos # (Auto) Seg Neutrophils % Lymphocytes % (Manual) Monocytes % (Manual) Seg Neutrophils # Seg Neutrophils # Man Lymphocytes # (Manual) Monocytes # (Manual) D-Dimer Heparin Anti-Xa Level ABG pH POC ABG pCO2 POC ABG pO2 ABG pO2 ABG HCO3 ABG O2 Saturation ABG Base Excess ABG Hemoglobin ABG Oxyhemoglobin ABG Sodium ABG Potassium ABG Chloride ABG Glucose VBG pH Oxyhemoglobin Carboxyhemoglobin Sodium 136 L Potassium Chloride 97.6 L Carbon Dioxide 35 H BUN 26 H Creatinine Glucose 133 H POC Glucose Lactic Acid Calcium 8.0 L Phosphorus Magnesium Total Bilirubin AST ALT Ammonia Lactate Dehydrogenase Total Creatine Kinase CK-MB (CK-2) Troponin T NT-Pro-B Natriuret Pep Total Protein Albumin Triglycerides TSH Arterial Blood Glucose Arterial Blood Ionized Calcium Urine pH Urine WBC (Auto) Urine Creatinine Allied health notes reviewed: nursing
[2020-11-11] MEDS: cloNIDine TTS 0.3 MG/24 HR PATCH TD SCH (14:03)
--- NOTE | 2020-11-11 14:32 | Progress Note ---
Assessment and Plan Assessment and plan: This is a 55-year-old male with hypertension, asthma, obesity who was admitted on 10/10 after cardiac arrest x2 (supposedly after COVID-19 vaccine injection), sepsis, right-sided pneumonia, NSTEMI type II, acute heart failure, acute hypoxic respiratory failure, acute kidney injury and anoxic brain injury. Sepsis s/p multiple Cardiac Arrests s/p right-sided pneumonia MRSA in tracheal aspirate NSTEMI type II Acute heart failure Afib/Aflutter Acute hypoxic respiratory failure Acute kidney injury (improved) Transaminitis HTN Obesity -Infectious disease, CCM, GI, nephrology, cardiology, surgery consulted, appreciate recommendations -s/p Antibiotic therapy -10/18 recultured (blood/sputum/nasal discharge and urinalysis), tracheal aspirate with MRSA -S/p Linezolid -Continue antihypertensive regimen (changed to p.o.), titrate as needed -s/p IV amiodarone for A. fib/a flutter now on p.o. beta-shital -Trend CBC, BMP, LFT -trach/peg 10/27 -Resume SBT as tolerated and trach collar trials -Mucomyst -Avoid nephrotoxic medications, strict intake and output, renal ultrasound shows no obstruction -10/10 echocardiogram shows left internal systolic function normal, moderate concentric left ventricle hypertrophy, mild to side diastolic dysfunction, LVEF 55 to 60% with no pericardial effusion -Bilateral Doppler ultrasound negative for DVT/SVT which shows bilateral popliteal cysts -MRI Brain shows restricted diffusion and increased T2 signal cerebral cortex which can be seen in the setting of anoxic brain injury and/ or status epilepticus. -Repeat EEG shows significant generalized slowing compatible with to moderate severe diffuse neuropathy recently compatible with anoxic/ischemic encephalopathy -s/p D5W at 50ml/hr x 1 liter, currently on tube feedings and tolerating GI/DVT prophylaxis: SCDs to bilateral lower extremities while in bed, PPI, Heparin subq Dispo: Transfer to floor, possible LTACH The high probability of a clinically significant, sudden or life threatening deterioration of the [multi] system(s) required my full and direct attention, intervention and personal management. The aggregate critical care time was [20] minutes. This time is in addition to time spent performing reported procedures but includes the following: [x] Data Review and interpretation [x] Patient assessment and monitoring of vital signs [x] Documentation [x] Medication orders and management History Interval history: This is a 55-year-old male with hypertension, asthma, obesity in the emergency by presented to the emergency department on 10/10 after receiving a Covid vaccine being found unresponsive in his car in the emergency room bay with no pulse and ACLS protocol was initiated from his car to emergency room #21 where it was continued. Patient was intubated after ROSC was achieved and a central line was placed and the patient was initiated on pressors. In the emergency room patient seems to have seizure-like activity and then collapsed and was unresponsive with no palpable pulse and ACLS was again initiated patient with achievement of ROSC. Patient again coded with ACLS protocol in the CT room. Upon arrival to the ICU patient again coded and ROSC was achieved and he was placed on epinephrine, Lasix, heparin and sodium bicarbonate drip and sedated with propofol. An NG tube was placed, A-line was placed. Patient was admitted to the hospitalist service with consult to CCM, nephrology, infectious disease and cardiology. 10/11: Patient COVID-19 PCR is pending and he remains on mechanical ventilation, examination on assist control 400/30/12/0.95. Patient is scheduled for an echocardiogram and we will obtain bilateral lower extremity Doppler ultrasound given elevated D-dimer. Patient was supposed to have a CTA chest when he coded yesterday. We will begin trickle feeding. This morning patient was on a heparin drip and was noted to have bloody drainage from his NG tube. Heparin drip was discontinued. 10/12: Patient remains on propofol and Lasix drip at the time my examination and he is on assist control 400/25/12/0.60. Patient is hypokalemic this morning which was repleted. Nephrology discontinued Lasix drip and Diamox. Patient is hypertensive and has been started on hydralazine and beta-shital IV. He has been titrated off his vasopressors since yesterday. Vancomycin discontinued. Patient is currently on cefepime and azithromycin. 10/13: Sedation vacation attempted today and patient was not responsive to verbal or painful stimuli, does not track or focus or follow commands. This morning the patient has some respiratory alkalosis on ABG, hypernatremia and metabolic alkalosis on BMP. His kidney functions has improved slightly. Patient still has leukocytosis and infectious disease was like to continue antibiotic therapy. GI evaluated the patient yesterday and started the patient on PPI does not plan to scope at this time. At the time my examination patient assist-control 400/20/12/0.40 and sedated on propofol at 20. /: GI has recommended a CT abdomen since there is increased output from OG tube and an MRI brain without contrast has been ordered per neurology recommendations. EEG is pending and the patient has been started on Keppra per neurology.. Nutrition has been consulted for initiation of parenteral nutrition. Patient remains sedated with propofol and his hypernatremia, l eukocytosis, acute kidney injury and metabolic alkalosis is improving. Patient has hypokalemia today which was repleted. At the time of my examination patient was on assist control 400/14/10/0.40 and CCM has dropped his rate to 12 and PEEP to 8. We have labs ordered for a.m. He was given a clonidine patch given persistent hypertension and he remains on D5 water per nephrology. 10/15: This morning patient was started to have a low-grade fever and he will continue antibiotic therapy per infectious disease. He will remove Tuttle catheter today and place a condom cath. Patient's renal function is worsening with a BUN/creatinine of 57/2.4 today and he has hyperphosphatemia at 5.2. This morning the time my examination patient is sedated on fentanyl and has TPN infusing. He is on assist control 400/12/8/0.35. Per GI we will start trial of tube feedings initiation has been reconsulted for orders. 10/18: Patient was febrile overnight and infectious disease has recultured (blood/sputum/right nostril culture) and sent in urinalysis. Cefepime was extended due to high fever and was started on vancomycin. Tube feeding is at goal and we will discontinue his parenteral nutrition. Patient is unable to obtain his MRI due to increased hypoxia and nasal secretions. He will be started on CPAP trials today. This time I examination patient was sedated on fentanyl and had PPN running at 42. His renal function tests have worsened and now has hyperchloremia. Hypernatremia has resolved. 10/19: Patient's T-max was 100.2 and he was pancultured yesterday, remains on antibiotic therapy and still has copious drainage from his nostrils. Patient still has leukocytosis however his/creatinine improved slightly to 3.1 from 3.3. Patient's urinalysis from yesterday shows pyuria. Patient's tracheal aspirate from yesterday grew Staph aureus. Patient is on cefepime and vancomycin. 10/20: This morning at the time my examination patient was CPAP trial of 04/19 and his T-max was 100.9. Patient sedated on fentanyl at 2 just received IV push fentanyl for tachycardia. Today his creatinine is 2.8 from 3.1 yesterday. Infectious disease has stopped cefepime and vancomycin and started linezolid and MRSA PCR is pending. Today removed his NG tube and replaced it with OG tube. We will keep the patient normal saline at 75 mL's per hour for 3 L. Patient developed A. fib/a flutter overnight and cardiology has increased his Lopressor and IV amiodarone. We requested neurology evaluation today. 10/21: Cardiology we will increase Lopressor to 3 times daily and discontinue his amiodarone drip. Infectious disease would like a sinus CT when feasible however patient did have a moment of desatting earlier this week when we attempted MRI brain. And again yesterday when we attempted a "trial run" with positioning at bedside Patient is on linezolid for 10 days per ID. 10/22/20; patient was seen and evaluated this morning, patient had low-grade fever overnight. Patient is on Lopressor per cardiology recommendation. Patient did not follow commands, no improvement in mental status. Evaluated by neurology yesterday and neurology once MRI or CAT scan but cannot be done because patient desats when he lies flat. Patient is on linezolid per ID recommendation. Continue NG tube feeding. Continue with Keppra. Patient is on assist control with PEEP of 6. Management plan was discussed with his yesterday. 10/23/2020; patient is on Zyvox for positive MRSA from tracheal aspirate and kellie al secretion culture. Patient's mentation did not improve and does not follow commands. He was reevaluated by neurology and recommend MRI once patient is able to tolerate. MRI could not be done, CT scan could not be done because the patient could not lie flat. Clinically patient looks like she has anoxic encephalopathy. Patient is on NG tube feeding and on mechanical ventilation. Patient is on Keppra. Management plan was discussed with his . 10/24: This morning the patient is on AC TV 400,R 16, Peep 6 and FiO2 of 30% and sedated on 1mcg of Fentayl. He is hypernatremic and his kidney function tests have slightly improved. RN will attempt to obtain MRI Brain today since the patient was able to tolerate a "trial run" of being flat. [facility] plans to resume CPAP trials once MRI obtained. 10/25: This morning the time of examination patient was on assist control tidal volume 400, rate 16, PEEP 6, FiO2 30% and he is currently on CPAP. His MRI brain finding is consistent with status epilepticus or anoxic brain injury. Patient is EEG pending. No acute overnight events reported. 10/26: Patient has been on a CPAP trial 14/6 which she has been tolerating. Surgery was consulted for trach/PEG. Patient's hypernatremia and hyperchloremia slightly better as well as his kidney functions. He has received cardiac clearance for his trach and PEG. No acute events reported overnight. 10/27: At the time my examination patient was on CPAP trial 15/6 and 30% FiO2. Patient's electrolyte abnormalities were improving and sources kidney function. His T-max overnight was 99.3 and he remains on linezolid. No acute events reported overnight. 10/28: Yesterday patient had a trach and PEG placed. Patient remains n.p.o. as he has not been cleared by surgery to resume p.o. intake. Today he has slight leukocytosis which is likely reactive, hyponatremia, metabolic alkalosis however his kidney function continues to improve. No acute events overnight. 10/29: Plan to start tube feeding today, patient remains on mechanical ventilation with trach tube. Remains comatose without any change in mental status. Called and updated. 10/30: Vitals stable, patient remains on trach tube with ventilator. Tolerating tube feeding, otherwise clinically unchanged. Continue to provide supportive care and wean off from vent as tolerated. 10/31: No acute events reported overnight. Patient is CPAP at the time my examination however he will be tried on trach collar and we will obtain an ABG within 2 hours. 11/01. Patient is on a trach collar at 35% FiO2, he was reported, patient received Lasix and will obtain an ABG at 2100. dr. Uribe updated his and his mother is at bedside visiting him. 11/02. Patient was rested on assist control due to "tube feedings" endotracheal tube however CXR looks mild atelectasis rather than pneumonia. [facility] has given the patient another dose of Lasix and will obtain a CXR in the a.m. Patient remains with low-grade fever and we will resume daily SBT as tolerated. We will obtain a.m. labs and resume tube feedings. 11/03: Overnight the patient was rested on assist control and this afternoon he received CPAP trials. Patient's CXR looks pulmonary edema and he received additional 20 mg of Lasix today and tomorrow. Dr. Uribe updated the patie nt's family via phone today and they do not wish to change his code status. Patient's Robinul and scopolamine was decreased. 11/04: Patient was started on Mucomyst due to thick secretion, will continue gentle diuresis and again began T-piece trials. Pa this time my examination he was on CPAP trial 10 and was rested overnight, assist control. According to documentation patient rested on CPAP trial yesterday for approximately 4-1/2 hours. No acute events reported overnight. 11/05 patient improved with Mucomyst. Attempted weaning to begin T-piece trial. Physical examination consistent with anoxia 11/06. No new events over p.m. Secretions appear to be controlled. Updated family today. All questions and concerns answered to family satisfaction. 11/07: T-piece trials to resume. No acute events overnight. Continue current care. PT/OT consult. Transfer to [facility]. 11/09/2020. No new issues. Continue trach care, secretion control and airway management. Continue tube feedings which the patient is tolerating. Gastrostomy tube care. 11/11: Patient has remained on T-piece for 24 hours and he will be transferred to the floor. He is restarted on Mucomyst today per [facility]. Hospitalist Physical - Constitutional Vitals: Temp Pulse Resp BP Pulse Ox 98.1 F 73 25 H 150/81 98 11/11/20 08:00 11/11/20 14:03 11/11/20 14:00 11/11/20 14:03 11/11/20 14:00 General appearance: Present: no acute distress, other (Remains intubated ) - EENT Eyes: Present: PERRL ENT: poor dentition - Neck Neck: Present: normal ROM - Respiratory Respiratory effort: normal Respiratory: bilateral: diminished - Cardiovascular Rhythm: regular Heart Sounds: Present: S1 & S2. Absent: systolic murmur, diastolic murmur - Extremities Extremities: no ischemia, pulses intact, pulses symmetrical, normal temperature, normal color Peripheral Pulses: within normal limits - Abdominal General gastrointestinal: soft, non-tender, non-distended, normal bowel sounds - Integumentary Integumentary: Present: warm, dry - Psychiatric Psychiatric: cooperative, other (does not focus/track, does not follow commands) - Neurologic Neurologic: no focal deficits, moves all extremities - Allied Health Allied health notes reviewed: nursing, RT, social work HEART Score - HEART Score EKG: Non-specific Age: 45-65 Troponin: Troponin T 0.125 ng/mL (0.00-0.029) H* D 10/12/20 04:00 Troponin: 1-3x normal limit - Critical Actions Critical Actions: 4-6 pts:12-16.6% risk of adverse cardiac event. Should be admitted Results - Labs CBC & Chem 7: 11/11/20 11:00 11/11/20 08:38 Labs: Laboratory Last Values WBC 5.5 K/mm3 (4.5-11.0) 11/11/20 11:00 RBC 2.79 M/mm3 (3.65-5.03) L 11/11/20 11:00 Hgb 8.4 gm/dl (11.8-15.2) L 11/11/20 11:00 Hct 25.4 % (35.5-45.6) L 11/11/20 11:00 MCV 91 fl (84-94) 11/11/20 11:00 MCH 30 pg (28-32) 11/11/20 11:00 MCHC 33 % (32-34) 11/11/20 11:00 RDW 15.1 % (13.2-15.2) 11/11/20 11:00 Plt Count 239 K/mm3 (140-440) 11/11/20 11:00 Lymph % (Auto) 19.1 % (13.4-35.0) 11/07/20 04:50 [place] % (Auto) 10.3 % (0.0-7.3) H 11/07/20 04:50 Eos % (Auto) 6.9 % (0.0-4.3) H 11/07/20 04:50 Baso % (Auto) 0.6 % (0.0-1.8) 11/07/20 04:50 Lymph # (Auto) 1.5 K/mm3 (1.2-5.4) 11/07/20 04:50 [place] # (Auto) 0.8 K/mm3 (0.0-0.8) 11/07/20 04:50 Eos # (Auto) 0.5 K/mm3 (0.0-0.4) H 11/07/20 04:50 Baso # (Auto) 0.0 K/mm3 (0.0-0.1) 11/07/20 04:50 Add Manual Diff Complete 10/10/20 18:18 Total Counted 100 10/10/20 18:18 Seg Neutrophils % 63.1 % (40.0-70.0) 11/07/20 04:50 Seg Neuts % (Manual) 60.0 % (40.0-70.0) 10/10/20 18:18 Band Neutrophils % 27.0 % 10/10/20 18:18 Lymphocytes % (Manual) 4.0 % (13.4-35.0) L 10/10/20 18:18 Monocytes % (Manual) 9.0 % (0.0-7.3) H 10/10/20 18:18 Eosinophils % (Manual) 4.0 % (0.0-4.3) 10/10/20 10:48 Metamyelocytes % 1.0 % 10/10/20 10:48 Nucleated RBC % Not Reportable 10/10/20 18:18 Seg Neutrophils # 4.8 K/mm3 (1.8-7.7) 11/07/20 04:50 Seg Neutrophils # Man 13.8 K/mm3 (1.8-7.7) H 10/10/20 18:18 Band Neutrophils # 6.2 K/mm3 10/10/20 18:18 Lymphocytes # (Manual) 0.9 K/mm3 (1.2-5.4) L 10/10/20 18:18 Abs React Lymphs (Man) 0.0 K/mm3 10/10/20 18:18 Monocytes # (Manual) 2.1 K/mm3 (0.0-0.8) H 10/10/20 18:18 Eosinophils # (Manual) 0.0 K/mm3 (0.0-0.4) 10/10/20 18:18 Basophils # (Manual) 0.0 K/mm3 (0.0-0.1) 10/10/20 18:18 Metamyelocytes # 0.0 K/mm3 10/10/20 18:18 Myelocytes # 0.0 K/mm3 10/10/20 18:18 Promyelocytes # 0.0 K/mm3 10/10/20 18:18 Blast Cells # 0.0 K/mm3 10/10/20 18:18 WBC Morphology Not Reportable 10/10/20 18:18 Hypersegmented Neuts Not Reportable 10/10/20 18:18 Hyposegmented Neuts Not Reportable 10/10/20 18:18 Hypogranular Neuts Not Reportable 10/10/20 18:18 Smudge Cells Not Reportable 10/10/20 18:18 Toxic Granulation Not Reportable 10/10/20 18:18 Toxic Vacuolation Not Reportable 10/10/20 18:18 Dohle Bodies Not Reportable 10/10/20 18:18 Pelger-Huet Anomaly Not Reportable 10/10/20 18:18 Dionicio Rods Not Reportable 10/10/20 18:18 Platelet Estimate Consistent w auto 10/10/20 18:18 Clumped Platelets Not Reportable 10/10/20 18:18 Plt Clumps, EDTA Not Reportable 10/10/20 18:18 Large Platelets Rare 10/10/20 18:18 Giant Platelets Rare 10/10/20 18:18 Platelet Satelliting Not Reportable 10/10/20 18:18 Plt Morphology Comment Not Reportable 10/10/20 18:18 RBC Morphology Not Reportable 10/10/20 18:18 Dimorphic RBCs Not Reportable 10/10/20 18:18 Polychromasia Not Reportable 10/10/20 18:18 Hypochromasia Not Reportable 10/10/20 18:18 Poikilocytosis Not Reportable 10/10/20 18:18 Anisocytosis Not Reportable 10/10/20 18:18 Microcytosis Not Reportable 10/10/20 18:18 Macrocytosis Not Reportable 10/10/20 18:18 Spherocytes Not Reportable 10/10/20 18:18 Pappenheimer Bodies Not Reportable 10/10/20 18:18 Sickle Cells Not Reportable 10/10/20 18:18 Target Cells Not Reportable 10/10/20 18:18 Tear Drop Cells Not Reportable 10/10/20 18:18 Ovalocytes Not Reportable 10/10/20 18:18 Helmet Cells Not Reportable 10/10/20 18:18 Medley-Mchenry Bodies Not Reportable 10/10/20 18:18 [place] Rings Not Reportable 10/10/20 18:18 [place] Cells Not Reportable 10/10/20 18:18 Bite Cells Not Reportable 10/10/20 18:18 Crenated Cell Not Reportable 10/10/20 18:18 Elliptocytes Not Reportable 10/10/20 18:18 Acanthocytes (Spur) Not Reportable 10/10/20 18:18 Rouleaux Not Reportable 10/10/20 18:18 Hemoglobin C Crystals Not Reportable 10/10/20 18:18 Schistocytes Not Reportable 10/10/20 18:18 Malaria parasites Not Reportable 10/10/20 18:18 Mauricio Bodies Not Reportable 10/10/20 18:18 Hem Pathologist Commnt No 10/10/20 18:18 PT 13.5 Sec. (12.2-14.9) 10/28/20 07:00 INR 1.05 (0.87-1.13) 10/28/20 07:00 APTT 26.9 Sec. (24.2-36.6) 10/10/20 18:18 D-Dimer 679.5 ng/mlDDU (0-234) H 10/10/20 10:48 Heparin Anti-Xa Level 0.22 U.I./ml (0.3-0.7) L 10/11/20 08:35 ABG pH 7.388 (7.320-7.450) 11/11/20 03:11 POC ABG pCO2 64.5 mmHg (32.0-48.0) H 11/11/20 03:11 ABG pCO2 55.5 mm Hg 10/16/20 05:10 POC ABG pO2 94.0 mmHg (83-108) 11/11/20 03:11 ABG pO2 104.5 mm Hg (80.0-90.0) H 10/16/20 05:10 POC ABG HCO3 38.0 11/11/20 03:11 ABG HCO3 35.1 mmol/L (20.0-26.0) H 10/16/20 05:10 ABG O2 Saturation 97.6 (0-100) 11/11/20 03:11 ABG O2 Content 10.8 (0.0-44) 10/16/20 05:10 POC ABG Base Excess 11.2 11/11/20 03:11 ABG Base Excess 9.5 mmol/L (-2.0-3.0) H 10/16/20 05:10 ABG Hemoglobin 9.7 (12.0-17.5) L 11/11/20 03:11 ABG Oxyhemoglobin 96.7 (94-98) 11/11/20 03:11 ABG Carboxyhemoglobin 1.9 % (0.0-5.0) 10/16/20 05:10 ABG Methemoglobin 0.3 (0.0-1.5) 11/11/20 03:11 ABG Sodium 137.1 mmol/L (136.0-145.0) 11/11/20 03:11 ABG Potassium 5.0 mmol/L (3.40-4.50) H 11/11/20 03:11 ABG Chloride 98.0 mmol/L (98-107) 11/11/20 03:11 ABG Glucose 148 mg/dL (65-95) H 11/11/20 03:11 VBG pH 6.870 (7.320-7.420) L* 10/10/20 10:48 Oxyhemoglobin 95.3 % (95.0-99.0) 10/16/20 05:10 Carboxyhemoglobin 0.6 (0.5-1.5) 11/11/20 03:11 FiO2 35 % 10/16/20 05:10 FiO2 % 28.0 11/11/20 03:11 Sodium 136 mmol/L (137-145) L 11/11/20 08:38 Potassium 4.2 mmol/L (3.6-5.0) 11/11/20 08:38 Chloride 97.6 mmol/L (98-107) L 11/11/20 08:38 Carbon Dioxide 35 mmol/L (22-30) H 11/11/20 08:38 Anion Gap 8 mmol/L 11/11/20 08:38 BUN 26 mg/dL (9-20) H 11/11/20 08:38 Creatinine 0.9 mg/dL (0.8-1.3) 11/11/20 08:38 Estimated GFR > 60 ml/min 11/11/20 08:38 BUN/Creatinine Ratio 29 % 11/11/20 08:38 Glucose 133 mg/dL (75-100) H 11/11/20 08:38 POC Glucose 132 mg/dL (70-105) H 11/11/20 05:22 Hemoglobin A1c 6.0 % (4-6) 10/11/20 02:00 Lactic Acid 1.10 mmol/L (0.7-2.0) 10/13/20 04:52 Calcium 8.0 mg/dL (8.4-10.2) L 11/11/20 08:38 Phosphorus 5.20 mg/dL (2.5-4.5) H D 10/17/20 03:32 Magnesium 2.30 mg/dL (1.7-2.3) 10/17/20 03:32 Ferritin 81.4 ng/mL (30.0-300.0) 10/10/20 10:48 Total Bilirubin 1.70 mg/dL (0.1-1.2) H 10/18/20 03:27 AST 37 units/L (5-40) 10/18/20 03:27 ALT 32 units/L (7-56) 10/18/20 03:27 Alkaline Phosphatase 97 units/L (35-129) 10/18/20 03:27 Ammonia 214.0 umol/L (25-60) H 10/10/20 10:46 Lactate Dehydrogenase 386 units/L (91-180) H 10/10/20 10:48 Total Creatine Kinase 1192 units/L (55-170) H 10/10/20 18:18 CK-MB (CK-2) 21.7 ng/mL (0.0-4.0) H 10/10/20 18:18 CK-MB (CK-2) Rel Index 1.8 (0-4) 10/10/20 18:18 Troponin T 0.125 ng/mL (0.00-0.029) H* D 10/12/20 04:00 C-Reactive Protein 0.90 mg/dL (0.00-1.30) 10/10/20 10:48 NT-Pro-B Natriuret Pep 1187 pg/mL (0-900) H 10/10/20 10:46 Total Protein 6.3 g/dL (6.3-8.2) 10/18/20 03:27 Albumin 3.1 g/dL (3.9-5) L 10/18/20 03:27 Albumin/Globulin Ratio 1.0 % 10/18/20 03:27 Triglycerides 278 mg/dL (2-149) H 10/13/20 04:52 Cholesterol 138 mg/dL (50-199) 10/10/20 18:18 LDL Cholesterol Direct 76 mg/dL (50-130) 10/10/20 18:18 HDL Cholesterol 49 mg/dL (40-59) 10/10/20 18:18 Cholesterol/HDL Ratio 2.81 % 10/10/20 18:18 Procalcitonin 4.98 ng/mL (<0.15) 10/15/20 04:12 TSH 6.260 mlU/mL (0.270-4.200) H 10/10/20 10:46 Arterial Blood Glucose 148 mg/dL (65-95) H 11/11/20 03:11 Arterial Blood Ionized Calcium 4.8 mg/dL (4.6-5.3) 11/11/20 03:11 Urine Color Angelica (Yellow) 10/18/20 Unknown Urine Turbidity Cloudy (Clear) 10/18/20 Unknown Urine pH 5.0 (5.0-7.0) 10/18/20 Unknown Ur Specific [place] 1.017 (1.003-1.030) 10/18/20 Unknown Urine Protein 100 mg/dl mg/dL (Negative) 10/18/20 Unknown Urine Glucose (UA) Neg mg/dL (Negative) 10/18/20 Unknown Urine Ketones Neg mg/dL (Negative) 10/18/20 Unknown Urine Blood Lg (Negative) 10/18/20 Unknown Urine Nitrite Neg (Negative) 10/18/20 Unknown Urine Bilirubin Neg (Negative) 10/18/20 Unknown Urine Urobilinogen 4.0 mg/dL (<2.0) 10/18/20 Unknown Ur Leukocyte Esterase Neg (Negative) 10/18/20 Unknown Urine WBC (Auto) 115.0 /HPF (0.0-6.0) H 10/18/20 Unknown Urine RBC (Auto) 98.0 /HPF (0.0-6.0) 10/18/20 Unknown U Epithel Cells (Auto) 2.0 /HPF (0-13.0) 10/18/20 Unknown Urine WBC Clumps 3+ /HPF 10/18/20 Unknown Urine Mucus Few /HPF 10/11/20 13:30 Urine Eosinophils None seen (None Seen) 10/11/20 13:30 Urine Creatinine 93.7 mg/dL (0.1-20.0) H 10/19/20 13:14 Urine Sodium 25 mmol/L 10/19/20 13:14 Urine Urea Nitrogen 845 10/19/20 13:14 Nasal Screen MRSA (PCR) Positive (Negative) 10/20/20 13:30 Random Vancomycin 5.8 ug/mL (0-40.0) 10/21/20 06:30 Urine Opiates Screen Negative 10/10/20 10:50 Urine Methadone Screen Negative 10/10/20 10:50 Ur Barbiturates Screen Negative 10/10/20 10:50 Ur Phencyclidine Scrn Negative 10/10/20 10:50 Ur Amphetamines Screen Negative 10/10/20 10:50 U Benzodiazepines Scrn Negative 10/10/20 10:50 Urine Cocaine Screen Negative 10/10/20 10:50 U Marijuana (THC) Screen Positive 10/10/20 10:50 Drugs of Abuse Note Disclamer 10/10/20 10:50 Plasma/Serum Alcohol < 0.01 % (0-0.07) 10/10/20 10:48 Coronavirus (PCR) Negative (Negative) 10/11/20 Unknown Blood Type AB POSITIVE 10/10/20 10:48 Antibody Screen Negative 10/10/20 10:48 Tuttle/IV: Voiding Method Incontinent Active Medications - Current Medications Current Medications: Generic Name Dose Route Start Last Admin Trade Name Freq PRN Reason Stop Dose Admin Acetaminophen 650 mg 10/10/20 21:51 11/11/20 06:54 Acetaminophen 325 Mg Tab PO 650 mg Q4H PRN Administration Pain MILD(1-3)/Fever >100.5/[facility] Acetylcysteine 200 mg 04/30/21 16:00 Acetylcysteine 20% 200 Mg/1 Ml *For Inhalation Use* INHALATION 11/14/20 08:01 Q8HRT [facility] Albuterol 2.5 mg 10/11/20 13:12 11/09/20 20:12 Albuterol 2.5 Mg/3 Ml Nebu IH 2.5 mg Q6HRT PRN Administration Shortness Of Breath Amlodipine Besylate 10 mg 10/25/20 13:00 11/11/20 09:30 Amlodipine 10 Mg Tab PO 10 mg QDAY PEPITO Administration Lipase/Protease/Amylase 1 each 10/10/20 22:18 Lipase 10,500/Protease 25,000/Amylase 43,750 (Units) Dr Santana FEEDTUBE PRN PRN For Clogged Feeding Tube Clonidine HCl 0.3 mg 10/14/20 15:00 11/11/20 14:03 Clonidine Tts 0.3 Mg/24 Hr Patch TD 0.3 mg Fr PEPITO Administration Docusate Sodium 100 mg 10/16/20 22:00 11/11/20 09:30 Docusate Sodium 100 Mg/10 Ml Oral Liqd PO 100 mg BID PEPITO Administration Fentanyl 1 applic 11/09/20 18:00 11/09/20 17:45 Fentanyl 25 Mcg/Hr Patch 72hr TD 1 applic Q72H PEPITO Administration Glycopyrrolate 1 mg 11/04/20 14:00 11/11/20 13:14 Glycopyrrolate 1 Mg Tab PO 1 mg Q8HR PEPITO Administration Heparin Sodium (Porcine) 5,000 unit 10/11/20 22:00 11/11/20 09:30 Heparin 5,000 Unit/1 Ml Vial SUB-Q 5,000 unit Q12HR PEPITO Administration Hydralazine HCl 10 mg 11/02/20 08:46 Hydralazine 20 Mg/1 Ml Inj IV Q6H PRN Hypertension Hydralazine HCl 100 mg 11/10/20 06:00 11/11/20 13:15 Hydralazine 100 Mg Tab PO 100 mg Q8HR PEPITO Administration Hydromorphone HCl 0.5 mg 11/01/20 20:55 11/11/20 07:53 Hydromorphone 1 Mg/1 Ml Inj IV 0.5 mg Q3H PRN Administration Pain , Severe (7-10) Hydrophilic Ointment 1 applic 10/10/20 10:34 Lip Therapy Vaseline TP Q2HR PRN Dry Lips Lansoprazole 30 mg 10/24/20 10:00 11/11/20 09:31 Lansoprazole 30 Mg Solutab FEEDTUBE 30 mg BID PEPITO Administration Levetiracetam 500 mg 10/31/20 10:00 11/11/20 09:31 Levetiracetam 500 Mg/5 Ml Oral Liqd PO 500 mg BID PEPITO Administration Lorazepam 1 mg 11/04/20 19:27 11/11/20 13:14 Lorazepam 2 Mg/Ml Vial IV 1 mg Q4H PRN Administration Agitation Metoprolol Tartrate 100 mg 10/21/20 14:00 11/11/20 13:14 Metoprolol Tartrate 50 Mg Tab PO 100 mg TID PEPITO Administration Multi-Ingred Cream/Lotion/Oil/Oint 1 applic 10/10/20 10:34 Mineral Oil/Petrolatum, White Ophth Oint 3.5 Gm OU Q4HR PRN Dry Eye(s) Ondansetron HCl 4 mg 10/10/20 21:51 11/01/20 20:48 Ondansetron 4 Mg/2 Ml Inj IV 4 mg Q3H PRN Administration Nausea And Vomiting Polyethylene Glycol 17 gm 10/17/20 10:00 11/11/20 09:31 Polyethylene Glycol 3350 17 Gm Powder PO 17 gm QDAY PEPITO Administration Quetiapine Fumarate 100 mg 11/02/20 10:00 11/11/20 09:31 Quetiapine 100 Mg Tab PO 100 mg DAILY PEPITO Administration Quetiapine Fumarate 200 mg 11/07/20 22:00 11/11/20 00:16 Quetiapine 200 Mg Tab PO 200 mg QHS PEPITO Administration Quetiapine Fumarate 25 mg 11/07/20 14:00 11/11/20 09:31 Quetiapine 25 Mg Tab PO 25 mg DAILY PEPITO Administration Scopolamine 1 each 10/17/20 10:00 11/10/20 10:21 Scopolamine Transdermal Patch 72 Hr TD 1 each Q3D PEPITO Administration Simple Syrup 15 ml 10/10/20 22:18 Simple Syrup 15 Ml FEEDTUBE PRN PRN Hypoglycemia Simple Syrup 30 ml 10/10/20 22:18 Simple Syrup 15 Ml FEEDTUBE PRN PRN Hypoglycemia Sodium Bicarbonate 325 mg 10/10/20 22:18 Sodium Bicarbonate 325 Mg Tab FEEDTUBE PRN PRN For Clogged Feeding Tube Sodium Chloride 10 ml 10/10/20 22:00 11/11/20 09:42 Sodium Chloride 0.9% 10 Ml Flush Syringe IV Not Given BID PEPITO Nutrition/Malnutrition Assess - Dietary Evaluation Nutrition/Malnutrition Findings: Nutrition Notes Start: 10/11/20 08:38 Freq: Status: Active Protocol: Document 11/09/20 08:06 LP (Rec: 11/09/20 08:09 LP [id number]) Nutrition Notes Initial or Follow up Reassessment Current Diagnosis Acute Kidney Injury,Sepsis, Hypertension,Heart Failure, Respiratory Failure Other Pertinent Diagnosis GIB, pneu, MRSA [place], pulmonary edema Current Diet Promote at 80 ml/hr Labs/Tests Reviewed Pertinent Medications Reviewed Height 6 ft Weight 125.6 kg [place] Body Weight (kg) 80.90 BMI 37.5 Weight change and time frame Wt fluctuations expected Weight Status Morbidly Obese Subjective/Other Information Pt tolerating TF at goal rate. Percent of energy/protein needs met: 100%/74% Burn Absent Trauma Absent Difficulty In Swallowing Skin Integrity/Comment DTI to heel Current % PO Negligible Minimum of two criteria No Fluid Accumulation Mild (non-severe) #3 Nutrition Diagnosis Increased nutrient needs ( specify in comment below) Diagnosis Progress(for reassessment Continues documentation) #1 Nutrition Diagnosis Inadequate oral intake Diagnosis Progress(for reassessment Continues documentation) Is patient on ventilator? Yes Is Patient Ambulatory and/or Out of Bed No REE-([place]-confined to bed) 2570.376 Kcal/Kg value to use for calculation 15 Approximate Energy Requirements Using 1884 kcal/Kg Calculation Used for Recommendations Kcal/kg Additional Notes protein needs: >162g (>2 kgIBW of dry weight) fluid needs: 1 ml/kcal or per MD Nutrition Intervention Change Diet Order: Continue Nutrition Support: Promote at 80 ml/hr flush of 50 ml q4h. Kcal 1,920 Protein (gm) 120 Fluid (mL) 1,611 Goal #1 Tolerate TF Goal #2 Meet at least 70% of protein and 100% of kcal needs via TF Anticipated Discharge Needs: TF Follow-Up By: 11/14/20 Additional Comments Follow for stable TF
[2020-11-11] MEDS: ACETYLCYSTEINE 20% 200 MG/1 ML *FOR INHALATION USE INHALATION SCH (17:59)
[2020-11-12] MEDS: ACETYLCYSTEINE 20% 200 MG/1 ML *FOR INHALATION USE INHALATION SCH ×3 (00:19→16:03)
[2020-11-12] MEDS: ALBUTEROL 2.5 MG/3 ML NEBU IH PRN (00:24)
[2020-11-12] MEDS: hydrALAZINE 20 MG/1 ML INJ IV PRN ×3 (03:39→21:51)
[2020-11-12] MEDS: LORazepam 2 MG/ML VIAL IV PRN ×3 (05:11→21:40)
[2020-11-12] MEDS: HYDROmorphone 1 MG/1 ML INJ IV PRN ×3 (05:11→21:41)
[2020-11-12] MEDS: GLYCOPYRROLATE 1 MG TAB PO SCH ×3 (06:36→23:40)
[2020-11-12] MEDS: hydrALAZINE 100 MG TAB PO SCH ×3 (06:36→23:39)
--- NOTE | 2020-11-12 09:12 | Progress Note ---
Assessment and Plan Assessment and plan: This is a 55-year-old male with hypertension, asthma, obesity in the emergency by presented to the emergency department on 10/10 after receiving a Covid vaccine being found unresponsive in his car in the emergency room bay with no pulse and ACLS protocol was initiated from his car to emergency room #21 where it was continued. Patient was intubated after ROSC was achieved and a central line was placed and the patient was initiated on pressors. In the emergency room patient seems to have seizure-like activity and then collapsed and was unresponsive with no palpable pulse and ACLS was again initiated patient with achievement of ROSC. Patient again coded with ACLS protocol in the CT room. Upon arrival to the ICU patient again coded and ROSC was achieved and he was placed on epinephrine, Lasix, heparin and sodium bicarbonate drip and sedated with propofol. An NG tube was placed, A-line was placed. Patient was admitted to the hospitalist service with consult to CCM, nephrology, infectious disease and cardiology. 10/11: Patient COVID-19 PCR is pending and he remains on mechanical ventilation, examination on assist control 400/30/12/0.95. Patient is scheduled for an echocardiogram and we will obtain bilateral lower extremity Doppler ultrasound given elevated D-dimer. Patient was supposed to have a CTA chest when he coded yesterday. We will begin trickle feeding. This morning patient was on a heparin drip and was noted to have bloody drainage from his NG tube. Heparin drip was discontinued. 10/12: Patient remains on propofol and Lasix drip at the time my examination and he is on assist control 400/25/12/0.60. Patient is hypokalemic this morning which was repleted. Nephrology discontinued Lasix drip and Diamox. Patient is hypertensive and has been started on hydralazine and beta-shital IV. He has been titrated off his vasopressors since yesterday. Vancomycin discontinued. Patient is currently on cefepime and azithromycin. 10/13: Sedation vacation attempted today and patient was not responsive to verbal or painful stimuli, does not track or focus or follow commands. This morning the patient has some respiratory alkalosis on ABG, hypernatremia and metabolic luis fernando losis on BMP. His kidney functions has improved slightly. Patient still has leukocytosis and infectious disease was like to continue antibiotic therapy. GI evaluated the patient yesterday and started the patient on PPI does not plan to scope at this time. At the time my examination patient assist-control 400/20/12/0.40 and sedated on propofol at 20. /: GI has recommended a CT abdomen since there is increased output from OG tube and an MRI brain without contrast has been ordered per neurology recommendations. EEG is pending and the patient has been started on Keppra per neurology.. Nutrition has been consulted for initiation of parenteral nutrition. Patient remains sedated with propofol and his hypernatremia, leukocytosis, acute kidney injury and metabolic alkalosis is improving. Patient has hypokalemia today which was repleted. At the time of my examination patient was on assist control 400/14/10/0.40 and CCM has dropped his rate to 12 and PEEP to 8. We have labs ordered for a.m. He was given a clonidine patch given persistent hypertension and he remains on D5 water per nephrology. 10/15: This morning patient was started to have a low-grade fever and he will continue antibiotic therapy per infectious disease. He will remove Tuttle catheter today and place a condom cath. Patient's renal function is worsening with a BUN/creatinine of 57/2.4 today and he has hyperphosphatemia at 5.2. This morning the time my examination patient is sedated on fentanyl and has TPN i nfusing. He is on assist control 400/12/8/0.35. Per GI we will start trial of tube feedings initiation has been reconsulted for orders. 10/18: Patient was febrile overnight and infectious disease has recultured (blood/sputum/right nostril culture) and sent in urinalysis. Cefepime was extended due to high fever and was started on vancomycin. Tube feeding is at goal and we will discontinue his parenteral nutrition. Patient is unable to obtain his MRI due to increased hypoxia and nasal secretions. He will be started on CPAP trials today. This time I examination patient was sedated on fentanyl and had PPN running at 42. His renal function tests have worsened and now has hyperchloremia. Hypernatremia has resolved. 10/19: Patient's T-max was 100.2 and he was pancultured yesterday, remains on antibiotic therapy and still has copious drainage from his nostrils. Patient still has leukocytosis however his/creatinine improved slightly to 3.1 from 3.3. Patient's urinalysis from yesterday shows pyuria. Patient's tracheal aspirate from yesterday grew Staph aureus. Patient is on cefepime and vancomycin. 10/20: This morning at the time my examination patient was CPAP trial of 04/19 and his T-max was 100.9. Patient sedated on fentanyl at 2 just received IV push fentanyl for tachycardia. Today his creatinine is 2.8 from 3.1 yesterday. Infectious disease has stopped cefepime and vancomycin and started linezolid and MRSA PCR is pending. Today removed his NG tube and replaced it with OG tube. We will keep the patient normal saline at 75 mL's per hour for 3 L. Patient developed A. fib/a flutter overnight and cardiology has increased his Lopressor and IV amiodarone. We requested neurology evaluation today. 10/21: Cardiology we will increase Lopressor to 3 times daily and discontinue his amiodarone drip. Infectious disease would like a sinus CT when feasible however patient did have a moment of desatting earlier this week when we attempted MRI brain. And again yesterday when we attempted a "trial run" with positioning at bedside Patient is on linezolid for 10 days per ID. 10/22/20; patient was seen and evaluated this morning, patient had low-grade fever overnight. Patient is on Lopressor per cardiology recommendation. Patient did not follow commands, no improvement in mental status. Evaluated by neurology yesterday and neurology once MRI or CAT scan but cannot be done because patient desats when he lies flat. Patient is on linezolid per ID recommendation. Continue NG tube feeding. Continue with Keppra. Patient is on assist control with PEEP of 6. Management plan was discussed with his yesterday. 10/23/2020; patient is on Zyvox for positive MRSA from tracheal aspirate and nasal secretion culture. Patient's mentation did not improve and does not follow commands. He was reevaluated by neurology and recommend MRI once patient is able to tolerate. MRI could not be done, CT scan could not be done because the patient could not lie flat. Clinically patient looks like she has anoxic encephalopathy. Patient is on NG tube feeding and on mechanical ventilation. Patient is on Keppra. Management plan was discussed with his . 10/24: This morning the patient is on AC TV 400,R 16, Peep 6 and FiO2 of 30% and sedated on 1mcg of Fentayl. He is hypernatremic and his kidney function tests have slightly improved. RN will attempt to obtain MRI Brain today since the patient was able to tolerate a "trial run" of being flat. [facility] plans to resume CPAP trials once MRI obtained. 10/25: This morning the time of examination patient was on assist control tidal volume 400, rate 16, PEEP 6, FiO2 30% and he is currently on CPAP. His MRI brain finding is consistent with status epilepticus or anoxic brain injury. Patient is EEG pending. No acute overnight events reported. 10/26: Patient has been on a CPAP trial 14/6 which she has been tolerating. Surgery was consulted for trach/PEG. Patient's hypernatremia and hyperchloremia slightly better as well as his kidney functions. He has received cardiac clearance for his trach and PEG. No acute events reported overnight. 10/27: At the time my examination patient was on CPAP trial 15/6 and 30% FiO2. Patient's electrolyte abnormalities were improving and sources kidney function. His T-max overnight was 99.3 and he remains on linezolid. No acute events reported overnight. 10/28: Yesterday patient had a trach and PEG placed. Patient remains n.p.o. as he has not been cleared by surgery to resume p.o. intake. Today he has slight leukocytosis which is likely reactive, hyponatremia, metabolic alkalosis however his kidney function continues to improve. No acute events overnight. 10/29: Plan to start tube feeding today, patient remains on mechanical ventilation with trach tube. Remains comatose without any change in mental status. Called and updated. 10/30: Vitals stable, patient remains on trach tube with ventilator. Tolerating tube feeding, otherwise clinically unchanged. Continue to provide supportive care and wean off from vent as tolerated. 10/31: No acute events reported overnight. Patient is CPAP at the time my examination however he will be tried on trach collar and we will obtain an ABG within 2 hours. 11/01. Patient is on a trach collar at 35% FiO2, he was reported, patient received Lasix and will obtain an ABG at 2100. dr. Uribe updated his and his mother is at bedside visiting him. 11/02. Patient was rested on assist control due to "tube feedings" endotracheal tube however CXR looks mild atelectasis rather than pneumonia. [facility] has given the patient another dose of Lasix and will obtain a CXR in the a.m. Patient remains with low-grade fever and we will resume daily SBT as tolerated. We will obtain a.m. labs and resume tube feedings. 11/03: Overnight the patient was rested on assist control and this afternoon he received CPAP trials. Patient's CXR looks pulmonary edema and he received additional 20 mg of Lasix today and tomorrow. Dr. Uribe updated the patient's family via phone today and they do not wish to change his code status. Patient's Robinul and scopolamine was decreased. 11/04: Patient was started on Mucomyst due to thick secretion, will continue gentle diuresis and again began T-piece trials. Pa this time my examination he was on CPAP trial 10 and was rested overnight, assist control. According to documentation patient rested on CPAP trial yesterday for approximately 4-1/2 hours. No acute events reported overnight. 11/05 patient improved with Mucomyst. Attempted weaning to begin T-piece trial. Physical examination consistent with anoxia 11/06. No new events over p.m. Secretions appear to be controlled. Updated family today. All questions and concerns answered to family satisfaction. 11/07: T-piece trials to resume. No acute events overnight. Continue current care. PT/OT consult. Transfer to [facility]. 11/09/2020. No new issues. Continue trach care, secretion control and airway management. Continue tube feedings which the patient is tolerating. Gastrostomy tube care. 11/11: Patient has remained on T-piece for 24 hours and he will be transferred to the floor. He is restarted on Mucomyst today per [facility]. 11/12: The patient was transferred to the floor yesterday and remained stable on T-piece. Continue tracheostomy care, secretion control and airway management. Continue Mucomyst. -10/24 MRI Brain shows restricted diffusion and increased T2 signal cerebral cortex which can be seen in the setting of anoxic brain injury and/ or status epilepticus. -10/26 EEG shows significant generalized slowing compatible with to moderate severe diffuse neuropathy recently compatible with anoxic/ischemic encephalopathy History Interval history: No new issues overnight. Hospitalist Physical - Constitutional Vitals: Temp Pulse Resp BP Pulse Ox 99.3 F 94 H 20 204/108 100 11/12/20 08:39 11/12/20 08:39 11/12/20 08:39 11/12/20 08:39 11/12/20 08:40 General appearance: Present: no acute distress, other (Remains intubated ) - EENT Eyes: Present: PERRL, EOM intact ENT: hearing intact, clear oral mucosa, dentition normal - Neck Neck: Present: supple, normal ROM - Respiratory Respiratory effort: normal Respiratory: bilateral: CTA - Cardiovascular Rhythm: regular Heart Sounds: Present: S1 & S2. Absent: gallop, rub - Extremities Extremities: no ischemia, No edema, Full ROM - Abdominal General gastrointestinal: soft, non-tender, non-distended, normal bowel sounds - Integumentary Integumentary: Present: clear, warm, dry - Neurologic Neurologic: CNII-XII intact, moves all extremities HEART Score - HEART Score EKG: Non-specific Age: 45-65 Troponin: Troponin T 0.125 ng/mL (0.00-0.029) H* D 10/12/20 04:00 Troponin: 1-3x normal limit - Critical Actions Critical Actions: 4-6 pts:12-16.6% risk of adverse cardiac event. Should be admitted Results - Labs CBC & Chem 7: 11/11/20 11:00 11/11/20 08:38 Labs: Laboratory Last Values WBC 5.5 K/mm3 (4.5-11.0) 11/11/20 11:00 RBC 2.79 M/mm3 (3.65-5.03) L 11/11/20 11:00 Hgb 8.4 gm/dl (11.8-15.2) L 11/11/20 11:00 Hct 25.4 % (35.5-45.6) L 11/11/20 11:00 MCV 91 fl (84-94) 11/11/20 11:00 MCH 30 pg (28-32) 11/11/20 11:00 MCHC 33 % (32-34) 11/11/20 11:00 RDW 15.1 % (13.2-15.2) 11/11/20 11:00 Plt Count 239 K/mm3 (140-440) 11/11/20 11:00 Lymph % (Auto) 19.1 % (13.4-35.0) 11/07/20 04:50 Childress % (Auto) 10.3 % (0.0-7.3) H 11/07/20 04:50 Eos % (Auto) 6.9 % (0.0-4.3) H 11/07/20 04:50 Baso % (Auto) 0.6 % (0.0-1.8) 11/07/20 04:50 Lymph # (Auto) 1.5 K/mm3 (1.2-5.4) 11/07/20 04:50 Childress # (Auto) 0.8 K/mm3 (0.0-0.8) 11/07/20 04:50 Eos # (Auto) 0.5 K/mm3 (0.0-0.4) H 11/07/20 04:50 Baso # (Auto) 0.0 K/mm3 (0.0-0.1) 11/07/20 04:50 Add Manual Diff Complete 10/10/20 18:18 Total Counted 100 10/10/20 18:18 Seg Neutrophils % 63.1 % (40.0-70.0) 11/07/20 04:50 Seg Neuts % (Manual) 60.0 % (40.0-70.0) 10/10/20 18:18 Band Neutrophils % 27.0 % 10/10/20 18:18 Lymphocytes % (Manual) 4.0 % (13.4-35.0) L 10/10/20 18:18 Monocytes % (Manual) 9.0 % (0.0-7.3) H 10/10/20 18:18 Eosinophils % (Manual) 4.0 % (0.0-4.3) 10/10/20 10:48 Metamyelocytes % 1.0 % 10/10/20 10:48 Nucleated RBC % Not Reportable 10/10/20 18:18 Seg Neutrophils # 4.8 K/mm3 (1.8-7.7) 11/07/20 04:50 Seg Neutrophils # Man 13.8 K/mm3 (1.8-7.7) H 10/10/20 18:18 Band Neutrophils # 6.2 K/mm3 10/10/20 18:18 Lymphocytes # (Manual) 0.9 K/mm3 (1.2-5.4) L 10/10/20 18:18 Abs React Lymphs (Man) 0.0 K/mm3 10/10/20 18:18 Monocytes # (Manual) 2.1 K/mm3 (0.0-0.8) H 10/10/20 18:18 Eosinophils # (Manual) 0.0 K/mm3 (0.0-0.4) 10/10/20 18:18 Basophils # (Manual) 0.0 K/mm3 (0.0-0.1) 10/10/20 18:18 Metamyelocytes # 0.0 K/mm3 10/10/20 18:18 Myelocytes # 0.0 K/mm3 10/10/20 18:18 Promyelocytes # 0.0 K/mm3 10/10/20 18:18 Blast Cells # 0.0 K/mm3 10/10/20 18:18 WBC Morphology Not Reportable 10/10/20 18:18 Hypersegmented Neuts Not Reportable 10/10/20 18:18 Hyposegmented Neuts Not Reportable 10/10/20 18:18 Hypogranular Neuts Not Reportable 10/10/20 18:18 Smudge Cells Not Reportable 10/10/20 18:18 Toxic Granulation Not Reportable 10/10/20 18:18 Toxic Vacuolation Not Reportable 10/10/20 18:18 Dohle Bodies Not Reportable 10/10/20 18:18 Pelger-Huet Anomaly Not Reportable 10/10/20 18:18 Dionicio Rods Not Reportable 10/10/20 18:18 Platelet Estimate Consistent w auto 10/10/20 18:18 Clumped Platelets Not Reportable 10/10/20 18:18 Plt Clumps, EDTA Not Reportable 10/10/20 18:18 Large Platelets Rare 10/10/20 18:18 Giant Platelets Rare 10/10/20 18:18 Platelet Satelliting Not Reportable 10/10/20 18:18 Plt Morphology Comment Not Reportable 10/10/20 18:18 RBC Morphology Not Reportable 10/10/20 18:18 Dimorphic RBCs Not Reportable 10/10/20 18:18 Polychromasia Not Reportable 10/10/20 18:18 Hypochromasia Not Reportable 10/10/20 18:18 Poikilocytosis Not Reportable 10/10/20 18:18 Anisocytosis Not Reportable 10/10/20 18:18 Microcytosis Not Reportable 10/10/20 18:18 Macrocytosis Not Reportable 10/10/20 18:18 Spherocytes Not Reportable 10/10/20 18:18 Pappenheimer Bodies Not Reportable 10/10/20 18:18 Sickle Cells Not Reportable 10/10/20 18:18 Target Cells Not Reportable 10/10/20 18:18 Tear Drop Cells Not Reportable 10/10/20 18:18 Ovalocytes Not Reportable 10/10/20 18:18 Helmet Cells Not Reportable 10/10/20 18:18 Med[place] Bodies Not Reportable 10/10/20 18:18 [place] Rings Not Reportable 10/10/20 18:18 Adelfo Cells Not Reportable 10/10/20 18:18 Bite Cells Not Reportable 10/10/20 18:18 Crenated Cell Not Reportable 10/10/20 18:18 Elliptocytes Not Reportable 10/10/20 18:18 Acanthocytes (Spur) Not Reportable 10/10/20 18:18 Rouleaux Not Reportable 10/10/20 18:18 Hemoglobin C Crystals Not Reportable 10/10/20 18:18 Schistocytes Not Reportable 10/10/20 18:18 Malaria parasites Not Reportable 10/10/20 18:18 Mauricio Bodies Not Reportable 10/10/20 18:18 Hem Pathologist Commnt No 10/10/20 18:18 PT 13.5 Sec. (12.2-14.9) 10/28/20 07:00 INR 1.05 (0.87-1.13) 10/28/20 07:00 APTT 26.9 Sec. (24.2-36.6) 10/10/20 18:18 D-Dimer 679.5 ng/mlDDU (0-234) H 10/10/20 10:48 Heparin Anti-Xa Level 0.22 U.I./ml (0.3-0.7) L 10/11/20 08:35 ABG pH 7.388 (7.320-7.450) 11/11/20 03:11 POC ABG pCO2 64.5 mmHg (32.0-48.0) H 11/11/20 03:11 ABG pCO2 55.5 mm Hg 10/16/20 05:10 POC ABG pO2 94.0 mmHg (83-108) 11/11/20 03:11 ABG pO2 104.5 mm Hg (80.0-90.0) H 10/16/20 05:10 POC ABG HCO3 38.0 11/11/20 03:11 ABG HCO3 35.1 mmol/L (20.0-26.0) H 10/16/20 05:10 ABG O2 Saturation 97.6 (0-100) 11/11/20 03:11 ABG O2 Content 10.8 (0.0-44) 10/16/20 05:10 POC ABG Base Excess 11.2 11/11/20 03:11 ABG Base Excess 9.5 mmol/L (-2.0-3.0) H 10/16/20 05:10 ABG Hemoglobin 9.7 (12.0-17.5) L 11/11/20 03:11 ABG Oxyhemoglobin 96.7 (94-98) 11/11/20 03:11 ABG Carboxyhemoglobin 1.9 % (0.0-5.0) 10/16/20 05:10 ABG Methemoglobin 0.3 (0.0-1.5) 11/11/20 03:11 ABG Sodium 137.1 mmol/L (136.0-145.0) 11/11/20 03:11 ABG Potassium 5.0 mmol/L (3.40-4.50) H 11/11/20 03:11 ABG Chloride 98.0 mmol/L (98-107) 11/11/20 03:11 ABG Glucose 148 mg/dL (65-95) H 11/11/20 03:11 VBG pH 6.870 (7.320-7.420) L* 10/10/20 10:48 Oxyhemoglobin 95.3 % (95.0-99.0) 10/16/20 05:10 Carboxyhemoglobin 0.6 (0.5-1.5) 11/11/20 03:11 FiO2 35 % 10/16/20 05:10 FiO2 % 28.0 11/11/20 03:11 Sodium 136 mmol/L (137-145) L 11/11/20 08:38 Potassium 4.2 mmol/L (3.6-5.0) 11/11/20 08:38 Chloride 97.6 mmol/L (98-107) L 11/11/20 08:38 Carbon Dioxide 35 mmol/L (22-30) H 11/11/20 08:38 Anion Gap 8 mmol/L 11/11/20 08:38 BUN 26 mg/dL (9-20) H 11/11/20 08:38 Creatinine 0.9 mg/dL (0.8-1.3) 11/11/20 08:38 Estimated GFR > 60 ml/min 11/11/20 08:38 BUN/Creatinine Ratio 29 % 11/11/20 08:38 Glucose 133 mg/dL (75-100) H 11/11/20 08:38 POC Glucose 117 mg/dL (70-105) H 11/12/20 05:31 Hemoglobin A1c 6.0 % (4-6) 10/11/20 02:00 Lactic Acid 1.10 mmol/L (0.7-2.0) 10/13/20 04:52 Calcium 8.0 mg/dL (8.4-10.2) L 11/11/20 08:38 Phosphorus 5.20 mg/dL (2.5-4.5) H D 10/17/20 03:32 Magnesium 2.30 mg/dL (1.7-2.3) 10/17/20 03:32 Ferritin 81.4 ng/mL (30.0-300.0) 10/10/20 10:48 Total Bilirubin 1.70 mg/dL (0.1-1.2) H 10/18/20 03:27 AST 37 units/L (5-40) 10/18/20 03:27 ALT 32 units/L (7-56) 10/18/20 03:27 Alkaline Phosphatase 97 units/L (35-129) 10/18/20 03:27 Ammonia 214.0 umol/L (25-60) H 10/10/20 10:46 Lactate Dehydrogenase 386 units/L (91-180) H 10/10/20 10:48 Total Creatine Kinase 1192 units/L (55-170) H 10/10/20 18:18 CK-MB (CK-2) 21.7 ng/mL (0.0-4.0) H 10/10/20 18:18 CK-MB (CK-2) Rel Index 1.8 (0-4) 10/10/20 18:18 Troponin T 0.125 ng/mL (0.00-0.029) H* D 10/12/20 04:00 C-Reactive Protein 0.90 mg/dL (0.00-1.30) 10/10/20 10:48 NT-Pro-B Natriuret Pep 1187 pg/mL (0-900) H 10/10/20 10:46 Total Protein 6.3 g/dL (6.3-8.2) 10/18/20 03:27 Albumin 3.1 g/dL (3.9-5) L 10/18/20 03:27 Albumin/Globulin Ratio 1.0 % 10/18/20 03:27 Triglycerides 278 mg/dL (2-149) H 10/13/20 04:52 Cholesterol 138 mg/dL (50-199) 10/10/20 18:18 LDL Cholesterol Direct 76 mg/dL (50-130) 10/10/20 18:18 HDL Cholesterol 49 mg/dL (40-59) 10/10/20 18:18 Cholesterol/HDL Ratio 2.81 % 10/10/20 18:18 Procalcitonin 4.98 ng/mL (<0.15) 10/15/20 04:12 TSH 6.260 mlU/mL (0.270-4.200) H 10/10/20 10:46 Arterial Blood Glucose 148 mg/dL (65-95) H 11/11/20 03:11 Arterial Blood Ionized Calcium 4.8 mg/dL (4.6-5.3) 11/11/20 03:11 Urine Color Angelica (Yellow) 10/18/20 Unknown Urine Turbidity Cloudy (Clear) 10/18/20 Unknown Urine pH 5.0 (5.0-7.0) 10/18/20 Unknown Ur Specific [place] 1.017 (1.003-1.030) 10/18/20 Unknown Urine Protein 100 mg/dl mg/dL (Negative) 10/18/20 Unknown Urine Glucose (UA) Neg mg/dL (Negative) 10/18/20 Unknown Urine Ketones Neg mg/dL (Negative) 10/18/20 Unknown Urine Blood Lg (Negative) 10/18/20 Unknown Urine Nitrite Neg (Negative) 10/18/20 Unknown Urine Bilirubin Neg (Negative) 10/18/20 Unknown Urine Urobilinogen 4.0 mg/dL (<2.0) 10/18/20 Unknown Ur Leukocyte Esterase Neg (Negative) 10/18/20 Unknown Urine WBC (Auto) 115.0 /HPF (0.0-6.0) H 10/18/20 Unknown Urine RBC (Auto) 98.0 /HPF (0.0-6.0) 10/18/20 Unknown U Epithel Cells (Auto) 2.0 /HPF (0-13.0) 10/18/20 Unknown Urine WBC Clumps 3+ /HPF 10/18/20 Unknown Urine Mucus Few /HPF 10/11/20 13:30 Urine Eosinophils None seen (None Seen) 10/11/20 13:30 Urine Creatinine 93.7 mg/dL (0.1-20.0) H 10/19/20 13:14 Urine Sodium 25 mmol/L 10/19/20 13:14 Urine Urea Nitrogen 845 10/19/20 13:14 Nasal Screen MRSA (PCR) Positive (Negative) 10/20/20 13:30 Random Vancomycin 5.8 ug/mL (0-40.0) 10/21/20 06:30 Urine Opiates Screen Negative 10/10/20 10:50 Urine Methadone Screen Negative 10/10/20 10:50 Ur Barbiturates Screen Negative 10/10/20 10:50 Ur Phencyclidine Scrn Negative 10/10/20 10:50 Ur Amphetamines Screen Negative 10/10/20 10:50 U Benzodiazepines Scrn Negative 10/10/20 10:50 Urine Cocaine Screen Negative 10/10/20 10:50 U Marijuana (THC) Screen Positive 10/10/20 10:50 Drugs of Abuse Note Disclamer 10/10/20 10:50 Plasma/Serum Alcohol < 0.01 % (0-0.07) 10/10/20 10:48 Coronavirus (PCR) Negative (Negative) 10/11/20 Unknown Blood Type AB POSITIVE 10/10/20 10:48 Antibody Screen Negative 10/10/20 10:48 Tuttle/IV: Voiding Method Condom Catheter Active Medications - Current Medications Current Medications: Generic Name Dose Route Start Last Admin Trade Name Freq PRN Reason Stop Dose Admin Acetaminophen 650 mg 10/10/20 21:51 11/11/20 20:45 Acetaminophen 325 Mg Tab PO 650 mg Q4H PRN Administration Pain MILD(1-3)/Fever >100.5/SALVADOR Acetylcysteine 200 mg 11/11/20 16:00 11/12/20 00:19 Acetylcysteine 20% 200 Mg/1 Ml *For Inhalation Use* INHALATION 11/14/20 08:01 200 mg Q8HRT PEPITO Administration Albuterol 2.5 mg 10/11/20 13:12 11/12/20 00:24 Albuterol 2.5 Mg/3 Ml Nebu IH 2.5 mg Q6HRT PRN Administration Shortness Of Breath Amlodipine Besylate 10 mg 10/25/20 13:00 11/11/20 09:30 Amlodipine 10 Mg Tab PO 10 mg QDAY PEPITO Administration Lipase/Protease/Amylase 1 each 10/10/20 22:18 Lipase 10,500/Protease 25,000/Amylase 43,750 (Units) Dr Santana FEEDTUBE PRN PRN For Clogged Feeding Tube Clonidine HCl 0.3 mg 10/14/20 15:00 11/11/20 14:03 Clonidine Tts 0.3 Mg/24 Hr Patch TD 0.3 mg Fr PEPITO Administration Docusate Sodium 100 mg 10/16/20 22:00 11/11/20 21:05 Docusate Sodium 100 Mg/10 Ml Oral Liqd PO 100 mg BID PEPITO Administration Fentanyl 1 applic 11/09/20 18:00 11/09/20 17:45 Fentanyl 25 Mcg/Hr Patch 72hr TD 1 applic Q72H PEPITO Administration Glycopyrrolate 1 mg 11/04/20 14:00 11/12/20 06:36 Glycopyrrolate 1 Mg Tab PO 1 mg Q8HR PEPITO Administration Heparin Sodium (Porcine) 5,000 unit 10/11/20 22:00 11/11/20 21:05 Heparin 5,000 Unit/1 Ml Vial SUB-Q 5,000 unit Q12HR PEPITO Administration Hydralazine HCl 10 mg 11/02/20 08:46 11/12/20 03:39 Hydralazine 20 Mg/1 Ml Inj IV 10 mg Q6H PRN Administration Hypertension Hydralazine HCl 100 mg 11/10/20 06:00 11/12/20 06:36 Hydralazine 100 Mg Tab PO 100 mg Q8HR PEPITO Administration Hydromorphone HCl 0.5 mg 11/01/20 20:55 11/12/20 05:11 Hydromorphone 1 Mg/1 Ml Inj IV 0.5 mg Q3H PRN Administration Pain , Severe (7-10) Hydrophilic Ointment 1 applic 10/10/20 10:34 Lip Therapy Vaseline TP Q2HR PRN Dry Lips Lansoprazole 30 mg 10/24/20 10:00 11/11/20 21:06 Lansoprazole 30 Mg Solutab FEEDTUBE 30 mg BID PEPITO Administration Levetiracetam 500 mg 10/31/20 10:00 11/11/20 21:05 Levetiracetam 500 Mg/5 Ml Oral Liqd PO 500 mg BID PEPITO Administration Lorazepam 1 mg 11/04/20 19:27 11/12/20 05:11 Lorazepam 2 Mg/Ml Vial IV 1 mg Q4H PRN Administration Agitation Metoprolol Tartrate 100 mg 10/21/20 14:00 11/11/20 20:45 Metoprolol Tartrate 50 Mg Tab PO 100 mg TID PEPITO Administration Multi-Ingred Cream/Lotion/Oil/Oint 1 applic 10/10/20 10:34 Mineral Oil/Petrolatum, White Ophth Oint 3.5 Gm OU Q4HR PRN Dry Eye(s) Ondansetron HCl 4 mg 10/10/20 21:51 11/01/20 20:48 Ondansetron 4 Mg/2 Ml Inj IV 4 mg Q3H PRN Administration Nausea And Vomiting Polyethylene Glycol 17 gm 10/17/20 10:00 11/11/20 09:31 Polyethylene Glycol 3350 17 Gm Powder PO 17 gm QDAY PEPITO Administration Quetiapine Fumarate 100 mg 11/02/20 10:00 11/11/20 09:31 Quetiapine 100 Mg Tab PO 100 mg DAILY PEPITO Administration Quetiapine Fumarate 200 mg 11/07/20 22:00 11/11/20 22:25 Quetiapine 200 Mg Tab PO 200 mg QHS PEPITO Administration Quetiapine Fumarate 25 mg 11/07/20 14:00 11/11/20 09:31 Quetiapine 25 Mg Tab PO 25 mg DAILY PEPITO Administration Scopolamine 1 each 10/17/20 10:00 11/10/20 10:21 Scopolamine Transdermal Patch 72 Hr TD 1 each Q3D PEPITO Administration Simple Syrup 15 ml 10/10/20 22:18 Simple Syrup 15 Ml FEEDTUBE PRN PRN Hypoglycemia Simple Syrup 30 ml 10/10/20 22:18 Simple Syrup 15 Ml FEEDTUBE PRN PRN Hypoglycemia Sodium Bicarbonate 325 mg 10/10/20 22:18 Sodium Bicarbonate 325 Mg Tab FEEDTUBE PRN PRN For Clogged Feeding Tube Sodium Chloride 10 ml 10/10/20 22:00 11/11/20 21:08 Sodium Chloride 0.9% 10 Ml Flush Syringe IV 10 ml BID PEPITO Administration Nutrition/Malnutrition Assess - Dietary Evaluation Nutrition/Malnutrition Findings: Nutrition Notes Start: 10/11/20 08:38 Freq: Status: Active Protocol: Document 11/09/20 08:06 LP (Rec: 11/09/20 08:09 LP [email or web address]) Nutrition Notes Initial or Follow up Reassessment Current Diagnosis Acute Kidney Injury,Sepsis, Hypertension,Heart Failure, Respiratory Failure Other Pertinent Diagnosis GIB, pneu, MRSA [place], pulmonary edema Current Diet Promote at 80 ml/hr Labs/Tests Reviewed Pertinent Medications Reviewed Height 6 ft Weight 125.6 kg [place] Body Weight (kg) 80.90 BMI 37.5 Weight change and time frame Wt fluctuations expected Weight Status Morbidly Obese Subjective/Other Information Pt tolerating TF at goal rate. Percent of energy/protein needs met: 100%/74% Burn Absent Trauma Absent Difficulty In Swallowing Skin Integrity/Comment DTI to heel Current % PO Negligible Minimum of two criteria No Fluid Accumulation Mild (non-severe) #3 Nutrition Diagnosis Increased nutrient needs ( specify in comment below) Diagnosis Progress(for reassessment Continues documentation) #1 Nutrition Diagnosis Inadequate oral intake Diagnosis Progress(for reassessment Continues documentation) Is patient on ventilator? Yes Is Patient Ambulatory and/or Out of Bed No REE-([facility]-confined to bed) 2570.376 Kcal/Kg value to use for calculation 15 Approximate Energy Requirements Using 1884 kcal/Kg Calculation Used for Recommendations Kcal/kg Additional Notes protein needs: >162g (>2 kgIBW of dry weight) fluid needs: 1 ml/kcal or per MD Nutrition Intervention Change Diet Order: Continue Nutrition Support: Promote at 80 ml/hr flush of 50 ml q4h. Kcal 1,920 Protein (gm) 120 Fluid (mL) 1,611 Goal #1 Tolerate TF Goal #2 Meet at least 70% of protein and 100% of kcal needs via TF Anticipated Discharge Needs: TF Follow-Up By: 11/14/20 Additional Comments Follow for stable TF
[2020-11-12] MEDS: POLYETHYLENE GLYCOL 3350 17 GM POWDER PO SCH (09:57)
[2020-11-12] MEDS: METOPROLOL TARTRATE 50 MG TAB PO SCH ×3 (09:57→23:39)
[2020-11-12] MEDS: DOCUSATE SODIUM 100 MG/10 ML ORAL LIQD PO SCH ×2 (09:57→23:40)
[2020-11-12] MEDS: levETIRAcetam 500 MG/5 ML ORAL LIQD PO SCH ×2 (09:58→23:38)
[2020-11-12] MEDS: LANSOPRAZOLE 30 MG SOLUTAB FEEDTUBE SCH ×2 (09:58→23:39)
[2020-11-12] MEDS: HEPARIN 5,000 UNIT/1 ML VIAL SUB-Q SCH ×2 (09:58→21:52)
[2020-11-12] MEDS: QUEtiapine 100 MG TAB PO SCH (09:59)
[2020-11-12] MEDS: QUEtiapine 25 MG TAB PO SCH (09:59)
[2020-11-12] MEDS: amLODIPine 10 MG TAB PO SCH (09:59)
--- NOTE | 2020-11-12 12:17 | Progress Note ---
Assessment and Plan Cardiac arrest x3 with ROSC Severe septic and cardiogenic shock Acute respiratory failure with hypoxemia and hypercarbia Acute pulmonary edema MOE (acute kidney injury) Lactic acidosis, severe metabolic acidosis Bilateral pneumonia, aspiration pneumonia Elevated troponins - continue Robinul, scopolamine and mucomyst for secretion control - continue RTC t-piece as tolerated - continue bronchodilators with routine trach care and pulmonary hygiene per RT - no new issues otherwise, continue care as below; - continue mucomyst nebs - prn gentle diuresis - continue Seroquel for agitation control - continue contact precautions re: MRSA - completed anti-infective's per ID rec's - follow clinically re: fevers / WBC - Monitor hemodynamics closely - wean supplemental oxygen for target O2 sat's > 92% acutely - aspiration precautions - continue lung protective strategies - wean per pulmonary driven protocols otherwise - avoid nephrotoxins, renally dose all medications - continue to avoid benzodiazepine's, reduce the possibility of delirium - continue wound care per RN/WCN - prn analgesia per CPOT score - Maintenance of sleep-wake cycle, avoid delirium - continue enteral nutritional support at goal rate as tolerated - G.I. & VTE prophylaxis - PT/OT/ROM exercises - continue mobility protocols for pressure ulcer prophylaxis - Monitor hemodynamics closely - continue other care per attending / other consultants - discharge planning ongoing concurrently .... Re-evaluate in am & prn Subjective Date of service: 11/12/20 Principal diagnosis: Cardiac arrest; Septic Shock; Ac. hypoxemic & hypercapnic resp failure; MOE Interval history: Patient is seen today for: Cardiac arrest with ROSC; Severe septic and cardiogenic shock; Acute respiratory failure with hypoxemia and hypercarbia; Acute pulmonary edema; MOE; Lactic acidosis; severe metabolic acidosis; Bilateral pneumonia; aspiration pneumonia; Elevated troponins Seen and examined at bedside; 24hour events reviewed; nursing and respiratory care staff consulted; no adverse overnight events reported to me; resting peacefully in bed; tolerating RTC t-piece; secretions mild to moderate at times Objective Vital Signs - 12hr 11/12/20 11/12/20 11/12/20 00:38 03:33 03:39 Temperature 98.8 F Pulse Rate 82 Pulse Rate [ Anterior Bilateral Throughout] Pulse Rate [ 86 Anterior Left Throughout] Pulse Rate [ 82 Anterior Right Throughout] Respiratory 26 H Rate Respiratory Rate [Anterior Bilateral Throughout] Respiratory 26 H Rate [Anterior Left Throughout ] Respiratory 24 Rate [Anterior Right Throughout] Blood Pressure 178/103 173/103 O2 Sat by Pulse 95 Oximetry O2 Sat by Pulse Oximetry [ Assessment] 11/12/20 11/12/20 11/12/20 08:00 08:39 08:40 Temperature 99.3 F Pulse Rate 94 H Pulse Rate [ Anterior Bilateral Throughout] Pulse Rate [ Anterior Left Throughout] Pulse Rate [ Anterior Right Throughout] Respiratory 20 Rate Respiratory Rate [Anterior Bilateral Throughout] Respiratory Rate [Anterior Left Throughout ] Respiratory Rate [Anterior Right Throughout] Blood Pressure 204/108 O2 Sat by Pulse 100 Oximetry O2 Sat by Pulse 97 Oximetry [ Assessment] 11/12/20 11/12/20 11/12/20 09:20 09:57 09:59 Temperature Pulse Rate 94 H 94 H Pulse Rate [ 91 H Anterior Bilateral Throughout] Pulse Rate [ Anterior Left Throughout] Pulse Rate [ Anterior Right Throughout] Respiratory Rate Respiratory 22 Rate [Anterior Bilateral Throughout] Respiratory Rate [Anterior Left Throughout ] Respiratory Rate [Anterior Right Throughout] Blood Pressure 204/108 204/108 O2 Sat by Pulse 97 Oximetry O2 Sat by Pulse Oximetry [ Assessment] 11/12/20 11:28 Temperature 98.2 F Pulse Rate 83 Pulse Rate [ Anterior Bilateral Throughout] Pulse Rate [ Anterior Left Throughout] Pulse Rate [ Anterior Right Throughout] Respiratory 22 Rate Respiratory Rate [Anterior Bilateral Throughout] Respiratory Rate [Anterior Left Throughout ] Respiratory Rate [Anterior Right Throughout] Blood Pressure 214/105 O2 Sat by Pulse 100 Oximetry O2 Sat by Pulse Oximetry [ Assessment] Constitutional: no acute distress, other (middle aged obese male with mildly increased respiratory efort at rest) Eyes: non-icteric ENT: oropharynx moist, oropharyngeal exudate pre (thick), other (midline tracheostomy) Neck: supple, no lymphadenopathy, no JVD Effort: mildly labored Ascultation: Bilateral: diminished breath sounds, rhonchi (scant) Percussion: Bilateral: not dull Cardiovascular: regular rate and rhythm, other (S1,S2) Gastrointestinal: normoactive bowel sounds, soft, non-tender, non-distended (protuberant) Integumentary: normal Extremities: no cyanosis, no edema, pulses normal, no ischemia or petechiae Neurologic: pupils equal and round, unable to assess, other (encephalopathic) Psychiatric: other (unable to assess re: AMS) CBC and BMP: 11/17/20 03:48 11/17/20 03:48 ABG, PT/INR, D-dimer: ABG ABG pH 7.388 (7.320-7.450) 11/11/20 03:11 POC ABG pCO2 64.5 mmHg (32.0-48.0) H 11/11/20 03:11 ABG pCO2 55.5 mm Hg 10/16/20 05:10 POC ABG pO2 94.0 mmHg (83-108) 11/11/20 03:11 ABG pO2 104.5 mm Hg (80.0-90.0) H 10/16/20 05:10 POC ABG HCO3 38.0 11/11/20 03:11 ABG O2 Saturation 97.6 (0-100) 11/11/20 03:11 PT/INR, D-dimer PT 13.5 Sec. (12.2-14.9) 10/28/20 07:00 INR 1.05 (0.87-1.13) 10/28/20 07:00 D-Dimer 679.5 ng/mlDDU (0-234) H 10/10/20 10:48 Abnormal lab findings: Abnormal Labs 10/10/20 10/10/20 10/10/20 10:46 10:46 10:46 WBC RBC Hgb Hct RDW Lymph % (Auto) [place] % (Auto) Eos % (Auto) Lymph # (Auto) [place] # (Auto) Eos # (Auto) Seg Neutrophils % Lymphocytes % (Manual) Monocytes % (Manual) Seg Neutrophils # Seg Neutrophils # Man Lymphocytes # (Manual) Monocytes # (Manual) D-Dimer Heparin Anti-Xa Level ABG pH POC ABG pCO2 POC ABG pO2 ABG pO2 ABG HCO3 ABG O2 Saturation ABG Base Excess ABG Hemoglobin ABG Oxyhemoglobin ABG Sodium ABG Potassium ABG Chloride ABG Glucose VBG pH Oxyhemoglobin Carboxyhemoglobin Sodium Potassium Chloride Carbon Dioxide BUN Creatinine Glucose POC Glucose Lactic Acid 13.60 H* Calcium Phosphorus Magnesium Total Bilirubin AST ALT Ammonia 214.0 H Lactate Dehydrogenase Total Creatine Kinase CK-MB (CK-2) Troponin T NT-Pro-B Natriuret Pep Total Protein Albumin Triglycerides TSH 6.260 H Arterial Blood Glucose Arterial Blood Ionized Calcium Urine pH Urine WBC (Auto) Urine Creatinine 10/10/20 10/10/20 10/10/20 10:46 10:48 10:48 WBC RBC 5.28 H Hgb 15.5 H Hct 48.8 H RDW Lymph % (Auto) [place] % (Auto) Eos % (Auto) Lymph # (Auto) [place] # (Auto) Eos # (Auto) Seg Neutrophils % Lymphocytes % (Manual) 42.0 H Monocytes % (Manual) Seg Neutrophils # Seg Neutrophils # Man Lymphocytes # (Manual) Monocytes # (Manual) D-Dimer Heparin Anti-Xa Level ABG pH POC ABG pCO2 POC ABG pO2 ABG pO2 ABG HCO3 ABG O2 Saturation ABG Base Excess ABG Hemoglobin ABG Oxyhemoglobin ABG Sodium ABG Potassium ABG Chloride ABG Glucose VBG pH Oxyhemoglobin Carboxyhemoglobin Sodium Potassium 3.3 L Chloride 91.2 L Carbon Dioxide BUN Creatinine 1.8 H Glucose 231 H POC Glucose Lactic Acid Calcium Phosphorus Magnesium Total Bilirubin AST 60 H ALT 57 H Ammonia Lactate Dehydrogenase Total Creatine Kinase CK-MB (CK-2) Troponin T NT-Pro-B Natriuret Pep 1187 H Total Protein 9.0 H Albumin Triglycerides TSH Arterial Blood Glucose Arterial Blood Ionized Calcium Urine pH Urine WBC (Auto) Urine Creatinine 10/10/20 10/10/20 10/10/20 10:48 10:48 10:48 WBC RBC Hgb Hct RDW Lymph % (Auto) [place] % (Auto) Eos % (Auto) Lymph # (Auto) [place] # (Auto) Eos # (Auto) Seg Neutrophils % Lymphocytes % (Manual) Monocytes % (Manual) Seg Neutrophils # Seg Neutrophils # Man Lymphocytes # (Manual) Monocytes # (Manual) D-Dimer 679.5 H Heparin Anti-Xa Level ABG pH POC ABG pCO2 POC ABG pO2 ABG pO2 ABG HCO3 ABG O2 Saturation ABG Base Excess ABG Hemoglobin ABG Oxyhemoglobin ABG Sodium ABG Potassium ABG Chloride ABG Glucose VBG pH 6.870 L* Oxyhemoglobin Carboxyhemoglobin Sodium Potassium Chloride Carbon Dioxide BUN Creatinine Glucose POC Glucose Lactic Acid Calcium Phosphorus Magnesium Total Bilirubin AST ALT Ammonia Lactate Dehydrogenase 386 H Total Creatine Kinase CK-MB (CK-2) Troponin T NT-Pro-B Natriuret Pep Total Protein Albumin Triglycerides TSH Arterial Blood Glucose Arterial Blood Ionized Calcium Urine pH Urine WBC (Auto) Urine Creatinine 10/10/20 10/10/20 10/10/20 14:10 14:20 15:50 WBC RBC Hgb Hct RDW Lymph % (Auto) [place] % (Auto) Eos % (Auto) Lymph # (Auto) [place] # (Auto) Eos # (Auto) Seg Neutrophils % Lymphocytes % (Manual) Monocytes % (Manual) Seg Neutrophils # Seg Neutrophils # Man Lymphocytes # (Manual) Monocytes # (Manual) D-Dimer Heparin Anti-Xa Level ABG pH 7.175 L 7.247 L POC ABG pCO2 85.0 H POC ABG pO2 43.7 L ABG pO2 60.3 L ABG HCO3 32.0 H ABG O2 Saturation 86.1 L ABG Base Excess ABG Hemoglobin ABG Oxyhemoglobin 67.7 L ABG Sodium ABG Potassium ABG Chloride ABG Glucose 247 H VBG pH Oxyhemoglobin 84.4 L Carboxyhemoglobin Sodium Potassium Chloride Carbon Dioxide BUN Creatinine Glucose POC Glucose Lactic Acid 4.00 H* Calcium Phosphorus Magnesium Total Bilirubin AST ALT Ammonia Lactate Dehydrogenase Total Creatine Kinase CK-MB (CK-2) Troponin T NT-Pro-B Natriuret Pep Total Protein Albumin Triglycerides TSH Arterial Blood Glucose 247 H Arterial Blood Ionized Calcium 4.4 L Urine pH Urine WBC (Auto) Urine Creatinine 10/10/20 10/10/20 10/10/20 15:50 16:22 18:18 WBC RBC Hgb Hct RDW Lymph % (Auto) [place] % (Auto) Eos % (Auto) Lymph # (Auto) [place] # (Auto) Eos # (Auto) Seg Neutrophils % Lymphocytes % (Manual) Monocytes % (Manual) Seg Neutrophils # Seg Neutrophils # Man Lymphocytes # (Manual) Monocytes # (Manual) D-Dimer Heparin Anti-Xa Level ABG pH 7.171 L POC ABG pCO2 96.6 H POC ABG pO2 55.3 L ABG pO2 ABG HCO3 ABG O2 Saturation ABG Base Excess ABG Hemoglobin ABG Oxyhemoglobin 81.4 L ABG Sodium ABG Potassium ABG Chloride ABG Glucose 115 H VBG pH Oxyhemoglobin Carboxyhemoglobin Sodium Potassium Chloride Carbon Dioxide BUN Creatinine Glucose POC Glucose 132 H Lactic Acid Calcium Phosphorus Magnesium Total Bilirubin AST ALT Ammonia Lactate Dehydrogenase Total Creatine Kinase 1192 H CK-MB (CK-2) 21.7 H Troponin T 0.377 H* D NT-Pro-B Natriuret Pep Total Protein Albumin Triglycerides TSH Arterial Blood Glucose 115 H Arterial Blood Ionized Calcium Urine pH Urine WBC (Auto) Urine Creatinine 0310/10/20 10/10/20 18:18 18:18 22:49 WBC 23.0 H RBC 5.12 H Hgb Hct RDW Lymph % (Auto) [place] % (Auto) Eos % (Auto) Lymph # (Auto) [place] # (Auto) Eos # (Auto) Seg Neutrophils % Lymphocytes % (Manual) 4.0 L Monocytes % (Manual) 9.0 H Seg Neutrophils # Seg Neutrophils # Man 13.8 H Lymphocytes # (Manual) 0.9 L Monocytes # (Manual) 2.1 H D-Dimer Heparin Anti-Xa Level ABG pH POC ABG pCO2 POC ABG pO2 ABG pO2 ABG HCO3 ABG O2 Saturation ABG Base Excess ABG Hemoglobin ABG Oxyhemoglobin ABG Sodium ABG Potassium ABG Chloride ABG Glucose VBG pH Oxyhemoglobin Carboxyhemoglobin Sodium 146 H Potassium Chloride Carbon Dioxide 34 H D BUN 27 H Creatinine 2.7 H Glucose 102 H POC Glucose Lactic Acid Calcium Phosphorus Magnesium Total Bilirubin AST 90 H ALT 66 H Ammonia Lactate Dehydrogenase Total Creatine Kinase CK-MB (CK-2) Troponin T 0.273 H* D NT-Pro-B Natriuret Pep Total Protein Albumin Triglycerides TSH Arterial Blood Glucose Arterial Blood Ionized Calcium Urine pH Urine WBC (Auto) Urine Creatinine 10/11/20 10/11/20 10/11/20 02:00 02:00 02:00 WBC 17.3 H RBC Hgb Hct RDW Lymph % (Auto) 3.9 L [place] % (Auto) Eos % (Auto) Lymph # (Auto) 0.7 L [place] # (Auto) Eos # (Auto) Seg Neutrophils % 93.0 H Lymphocytes % (Manual) Monocytes % (Manual) Seg Neutrophils # 16.1 H Seg Neutrophils # Man Lymphocytes # (Manual) Monocytes # (Manual) D-Dimer Heparin Anti-Xa Level ABG pH POC ABG pCO2 POC ABG pO2 ABG pO2 ABG HCO3 ABG O2 Saturation ABG Base Excess ABG Hemoglobin ABG Oxyhemoglobin ABG Sodium ABG Potassium ABG Chloride ABG Glucose VBG pH Oxyhemoglobin Carboxyhemoglobin Sodium 149 H Potassium 3.3 L Chloride 95.3 L Carbon Dioxide 37 H BUN 29 H Creatinine 2.6 H Glucose POC Glucose Lactic Acid Calcium Phosphorus Magnesium Total Bilirubin AST 80 H ALT 59 H Ammonia Lactate Dehydrogenase Total Creatine Kinase CK-MB (CK-2) Troponin T 0.201 H* D NT-Pro-B Natriuret Pep Total Protein Albumin 3.6 L Triglycerides TSH Arterial Blood Glucose Arterial Blood Ionized Calcium Urine pH Urine WBC (Auto) Urine Creatinine 10/11/20 10/11/20 10/11/20 03:51 08:35 11:15 WBC RBC Hgb Hct RDW Lymph % (Auto) [place] % (Auto) Eos % (Auto) Lymph # (Auto) [place] # (Auto) Eos # (Auto) Seg Neutrophils % Lymphocytes % (Manual) Monocytes % (Manual) Seg Neutrophils # Seg Neutrophils # Man Lymphocytes # (Manual) Monocytes # (Manual) D-Dimer Heparin Anti-Xa Level 0.22 L ABG pH 7.491 H POC ABG pCO2 57.6 H POC ABG pO2 ABG pO2 ABG HCO3 ABG O2 Saturation ABG Base Excess ABG Hemoglobin ABG Oxyhemoglobin ABG Sodium 150.0 H ABG Potassium 3.1 L ABG Chloride 96.0 L ABG Glucose 122 H VBG pH Oxyhemoglobin Carboxyhemoglobin Sodium Potassium Chloride Carbon Dioxide BUN Creatinine Glucose POC Glucose 151 H Lactic Acid Calcium Phosphorus Magnesium Total Bilirubin AST ALT Ammonia Lactate Dehydrogenase Total Creatine Kinase CK-MB (CK-2) Troponin T NT-Pro-B Natriuret Pep Total Protein Albumin Triglycerides TSH Arterial Blood Glucose 122 H Arterial Blood Ionized Calcium 3.9 L Urine pH Urine WBC (Auto) Urine Creatinine 10/11/20 10/11/20 10/11/20 13:30 13:30 13:30 WBC 15.0 H RBC Hgb Hct RDW Lymph % (Auto) [place] % (Auto) Eos % (Auto) Lymph # (Auto) [place] # (Auto) Eos # (Auto) Seg Neutrophils % Lymphocytes % (Manual) Monocytes % (Manual) Seg Neutrophils # Seg Neutrophils # Man Lymphocytes # (Manual) Monocytes # (Manual) D-Dimer Heparin Anti-Xa Level ABG pH POC ABG pCO2 POC ABG pO2 ABG pO2 ABG HCO3 ABG O2 Saturation ABG Base Excess ABG Hemoglobin ABG Oxyhemoglobin ABG Sodium ABG Potassium ABG Chloride ABG Glucose VBG pH Oxyhemoglobin Carboxyhemoglobin Sodium Potassium Chloride Carbon Dioxide BUN Creatinine Glucose POC Glucose Lactic Acid Calcium Phosphorus Magnesium Total Bilirubin AST ALT Ammonia Lactate Dehydrogenase Total Creatine Kinase CK-MB (CK-2) Troponin T NT-Pro-B Natriuret Pep Total Protein Albumin Triglycerides TSH Arterial Blood Glucose Arterial Blood Ionized Calcium Urine pH 9.0 H Urine WBC (Auto) 18.0 H Urine Creatinine 80.5 H 10/11/20 10/11/20 10/12/20 17:17 23:14 03:53 WBC RBC Hgb Hct RDW Lymph % (Auto) [place] % (Auto) Eos % (Auto) Lymph # (Auto) [place] # (Auto) Eos # (Auto) Seg Neutrophils % Lymphocytes % (Manual) Monocytes % (Manual) Seg Neutrophils # Seg Neutrophils # Man Lymphocytes # (Manual) Monocytes # (Manual) D-Dimer Heparin Anti-Xa Level ABG pH 7.545 H POC ABG pCO2 54.6 H POC ABG pO2 231.9 H ABG pO2 ABG HCO3 ABG O2 Saturation ABG Base Excess ABG Hemoglobin ABG Oxyhemoglobin 98.5 H ABG Sodium 150.5 H ABG Potassium 3.2 L ABG Chloride 96.0 L ABG Glucose 148 H VBG pH Oxyhemoglobin Carboxyhemoglobin Sodium Potassium Chloride Carbon Dioxide BUN Creatinine Glucose POC Glucose 121 H 135 H Lactic Acid Calcium Phosphorus Magnesium Total Bilirubin AST ALT Ammonia Lactate Dehydrogenase Total Creatine Kinase CK-MB (CK-2) Troponin T NT-Pro-B Natriuret Pep Total Protein Albumin Triglycerides TSH Arterial Blood Glucose 148 H Arterial Blood Ionized Calcium 3.8 L Urine pH Urine WBC (Auto) Urine Creatinine 10/12/20 10/12/20 10/12/20 04:00 05:10 05:12 WBC 14.3 H RBC Hgb 11.6 L Hct 35.2 L RDW Lymph % (Auto) [place] % (Auto) Eos % (Auto) Lymph # (Auto) [place] # (Auto) Eos # (Auto) Seg Neutrophils % Lymphocytes % (Manual) Monocytes % (Manual) Seg Neutrophils # Seg Neutrophils # Man Lymphocytes # (Manual) Monocytes # (Manual) D-Dimer Heparin Anti-Xa Level ABG pH POC ABG pCO2 POC ABG pO2 ABG pO2 ABG HCO3 ABG O2 Saturation ABG Base Excess ABG Hemoglobin ABG Oxyhemoglobin ABG Sodium ABG Potassium ABG Chloride ABG Glucose VBG pH Oxyhemoglobin Carboxyhemoglobin Sodium 155 H Potassium 3.3 L Chloride 97.9 L Carbon Dioxide 47 H* D BUN 50 H Creatinine 3.4 H Glucose 146 H POC Glucose 137 H Lactic Acid Calcium 8.0 L Phosphorus Magnesium Total Bilirubin AST ALT Ammonia Lactate Dehydrogenase Total Creatine Kinase CK-MB (CK-2) Troponin T 0.125 H* D NT-Pro-B Natriuret Pep Total Protein Albumin Triglycerides TSH Arterial Blood Glucose Arterial Blood Ionized Calcium Urine pH Urine WBC (Auto) Urine Creatinine 10/12/20 10/12/20 10/12/20 11:39 16:01 19:49 WBC RBC Hgb Hct RDW Lymph % (Auto) [place] % (Auto) Eos % (Auto) Lymph # (Auto) [place] # (Auto) Eos # (Auto) Seg Neutrophils % Lymphocytes % (Manual) Monocytes % (Manual) Seg Neutrophils # Seg Neutrophils # Man Lymphocytes # (Manual) Monocytes # (Manual) D-Dimer Heparin Anti-Xa Level ABG pH POC ABG pCO2 POC ABG pO2 ABG pO2 ABG HCO3 ABG O2 Saturation ABG Base Excess ABG Hemoglobin ABG Oxyhemoglobin ABG Sodium ABG Potassium ABG Chloride ABG Glucose VBG pH Oxyhemoglobin Carboxyhemoglobin Sodium 157 H Potassium 3.3 L Chloride Carbon Dioxide 47 H* BUN 52 H Creatinine 3.0 H Glucose 137 H POC Glucose 138 H 119 H Lactic Acid Calcium 8.0 L Phosphorus Magnesium Total Bilirubin AST ALT Ammonia Lactate Dehydrogenase Total Creatine Kinase CK-MB (CK-2) Troponin T NT-Pro-B Natriuret Pep Total Protein Albumin Triglycerides TSH Arterial Blood Glucose Arterial Blood Ionized Calcium Urine pH Urine WBC (Auto) Urine Creatinine 10/12/20 10/13/20 10/13/20 23:37 02:28 04:52 WBC RBC Hgb Hct RDW Lymph % (Auto) [place] % (Auto) Eos % (Auto) Lymph # (Auto) [place] # (Auto) Eos # (Auto) Seg Neutrophils % Lymphocytes % (Manual) Monocytes % (Manual) Seg Neutrophils # Seg Neutrophils # Man Lymphocytes # (Manual) Monocytes # (Manual) D-Dimer Heparin Anti-Xa Level ABG pH 7.485 H POC ABG pCO2 57.1 H POC ABG pO2 ABG pO2 ABG HCO3 ABG O2 Saturation ABG Base Excess ABG Hemoglobin ABG Oxyhemoglobin ABG Sodium 152.4 H ABG Potassium ABG Chloride ABG Glucose 129 H VBG pH Oxyhemoglobin Carboxyhemoglobin Sodium 155 H Potassium Chloride Carbon Dioxide 45 H* BUN 52 H Creatinine 2.7 H Glucose 121 H POC Glucose 131 H Lactic Acid Calcium Phosphorus Magnesium 2.40 H Total Bilirubin AST ALT Ammonia Lactate Dehydrogenase Total Creatine Kinase CK-MB (CK-2) Troponin T NT-Pro-B Natriuret Pep Total Protein Albumin Triglycerides 278 H TSH Arterial Blood Glucose 129 H Arterial Blood Ionized Calcium 4.1 L Urine pH Urine WBC (Auto) Urine Creatinine 10/13/20 10/13/20 10/13/20 04:52 05:13 11:37 WBC 14.7 H RBC Hgb 11.7 L Hct RDW 15.8 H Lymph % (Auto) [place] % (Auto) Eos % (Auto) Lymph # (Auto) [place] # (Auto) Eos # (Auto) Seg Neutrophils % Lymphocytes % (Manual) Monocytes % (Manual) Seg Neutrophils # Seg Neutrophils # Man Lymphocytes # (Manual) Monocytes # (Manual) D-Dimer Heparin Anti-Xa Level ABG pH POC ABG pCO2 POC ABG pO2 ABG pO2 ABG HCO3 ABG O2 Saturation ABG Base Excess ABG Hemoglobin ABG Oxyhemoglobin ABG Sodium ABG Potassium ABG Chloride ABG Glucose VBG pH Oxyhemoglobin Carboxyhemoglobin Sodium Potassium Chloride Carbon Dioxide BUN Creatinine Glucose POC Glucose 116 H 116 H Lactic Acid Calcium Phosphorus Magnesium Total Bilirubin AST ALT Ammonia Lactate Dehydrogenase Total Creatine Kinase CK-MB (CK-2) Troponin T NT-Pro-B Natriuret Pep Total Protein Albumin Triglycerides TSH Arterial Blood Glucose Arterial Blood Ionized Calcium Urine pH Urine WBC (Auto) Urine Creatinine 10/13/20 10/14/20 10/14/20 17:50 03:45 04:46 WBC 11.1 H RBC Hgb Hct RDW 15.3 H Lymph % (Auto) [place] % (Auto) Eos % (Auto) Lymph # (Auto) [place] # (Auto) Eos # (Auto) Seg Neutrophils % Lymphocytes % (Manual) Monocytes % (Manual) Seg Neutrophils # Seg Neutrophils # Man Lymphocytes # (Manual) Monocytes # (Manual) D-Dimer Heparin Anti-Xa Level ABG pH POC ABG pCO2 59.6 H POC ABG pO2 ABG pO2 ABG HCO3 ABG O2 Saturation ABG Base Excess ABG Hemoglobin ABG Oxyhemoglobin ABG Sodium 151.4 H ABG Potassium 3.3 L ABG Chloride ABG Glucose 138 H VBG pH Oxyhemoglobin Carboxyhemoglobin 1.6 H Sodium Potassium Chloride Carbon Dioxide BUN Creatinine Glucose POC Glucose 140 H Lactic Acid Calcium Phosphorus Magnesium Total Bilirubin AST ALT Ammonia Lactate Dehydrogenase Total Creatine Kinase CK-MB (CK-2) Troponin T NT-Pro-B Natriuret Pep Total Protein Albumin Triglycerides TSH Arterial Blood Glucose 138 H Arterial Blood Ionized Calcium 4.5 L Urine pH Urine WBC (Auto) Urine Creatinine 10/14/20 10/14/20 10/14/20 04:46 05:10 11:11 WBC RBC Hgb Hct RDW Lymph % (Auto) [place] % (Auto) Eos % (Auto) Lymph # (Auto) [place] # (Auto) Eos # (Auto) Seg Neutrophils % Lymphocytes % (Manual) Monocytes % (Manual) Seg Neutrophils # Seg Neutrophils # Man Lymphocytes # (Manual) Monocytes # (Manual) D-Dimer Heparin Anti-Xa Level ABG pH POC ABG pCO2 POC ABG pO2 ABG pO2 ABG HCO3 ABG O2 Saturation ABG Base Excess ABG Hemoglobin ABG Oxyhemoglobin ABG Sodium ABG Potassium ABG Chloride ABG Glucose VBG pH Oxyhemoglobin Carboxyhemoglobin Sodium 152 H Potassium 3.5 L Chloride Carbon Dioxide 38 H D BUN 46 H Creatinine 2.3 H Glucose 127 H POC Glucose 116 H 114 H Lactic Acid Calcium Phosphorus Magnesium Total Bilirubin AST ALT Ammonia Lactate Dehydrogenase Total Creatine Kinase CK-MB (CK-2) Troponin T NT-Pro-B Natriuret Pep Total Protein Albumin Triglycerides TSH Arterial Blood Glucose Arterial Blood Ionized Calcium Urine pH Urine WBC (Auto) Urine Creatinine 10/14/20 10/14/20 10/15/20 18:53 23:23 04:12 WBC RBC Hgb Hct RDW Lymph % (Auto) [place] % (Auto) Eos % (Auto) Lymph # (Auto) [place] # (Auto) Eos # (Auto) Seg Neutrophils % Lymphocytes % (Manual) Monocytes % (Manual) Seg Neutrophils # Seg Neutrophils # Man Lymphocytes # (Manual) Monocytes # (Manual) D-Dimer Heparin Anti-Xa Level ABG pH POC ABG pCO2 POC ABG pO2 ABG pO2 ABG HCO3 ABG O2 Saturation ABG Base Excess ABG Hemoglobin ABG Oxyhemoglobin ABG Sodium ABG Potassium ABG Chloride ABG Glucose VBG pH Oxyhemoglobin Carboxyhemoglobin Sodium 149 H Potassium 3.2 L Chloride Carbon Dioxide 37 H BUN 40 H Creatinine 2.0 H Glucose 124 H POC Glucose 128 H 113 H Lactic Acid Calcium Phosphorus Magnesium Total Bilirubin AST ALT Ammonia Lactate Dehydrogenase Total Creatine Kinase CK-MB (CK-2) Troponin T NT-Pro-B Natriuret Pep Total Protein Albumin Triglycerides TSH Arterial Blood Glucose Arterial Blood Ionized Calcium Urine pH Urine WBC (Auto) Urine Creatinine 10/15/20 10/15/20 10/15/20 04:22 11:39 17:36 WBC RBC Hgb Hct RDW Lymph % (Auto) [place] % (Auto) Eos % (Auto) Lymph # (Auto) [place] # (Auto) Eos # (Auto) Seg Neutrophils % Lymphocytes % (Manual) Monocytes % (Manual) Seg Neutrophils # Seg Neutrophils # Man Lymphocytes # (Manual) Monocytes # (Manual) D-Dimer Heparin Anti-Xa Level ABG pH POC ABG pCO2 POC ABG pO2 ABG pO2 115.0 H ABG HCO3 38.1 H ABG O2 Saturation ABG Base Excess 11.3 H ABG Hemoglobin 11.0 L ABG Oxyhemoglobin ABG Sodium ABG Potassium ABG Chloride ABG Glucose VBG pH Oxyhemoglobin Carboxyhemoglobin Sodium Potassium Chloride Carbon Dioxide BUN Creatinine Glucose POC Glucose 123 H 118 H Lactic Acid Calcium Phosphorus Magnesium Total Bilirubin AST ALT Ammonia Lactate Dehydrogenase Total Creatine Kinase CK-MB (CK-2) Troponin T NT-Pro-B Natriuret Pep Total Protein Albumin Triglycerides TSH Arterial Blood Glucose Arterial Blood Ionized Calcium Urine pH Urine WBC (Auto) Urine Creatinine 10/15/20 10/16/20 10/16/20 23:18 03:13 05:10 WBC RBC Hgb Hct RDW Lymph % (Auto) [place] % (Auto) Eos % (Auto) Lymph # (Auto) [place] # (Auto) Eos # (Auto) Seg Neutrophils % Lymphocytes % (Manual) Monocytes % (Manual) Seg Neutrophils # Seg Neutrophils # Man Lymphocytes # (Manual) Monocytes # (Manual) D-Dimer Heparin Anti-Xa Level ABG pH POC ABG pCO2 POC ABG pO2 ABG pO2 104.5 H ABG HCO3 35.1 H ABG O2 Saturation ABG Base Excess 9.5 H ABG Hemoglobin 7.9 L ABG Oxyhemoglobin ABG Sodium ABG Potassium ABG Chloride ABG Glucose VBG pH Oxyhemoglobin Carboxyhemoglobin Sodium Potassium 3.3 L Chloride Carbon Dioxide 33 H BUN 37 H Creatinine 1.4 H Glucose 148 H POC Glucose 135 H Lactic Acid Calcium Phosphorus Magnesium 2.40 H Total Bilirubin AST ALT Ammonia Lactate Dehydrogenase Total Creatine Kinase CK-MB (CK-2) Troponin T NT-Pro-B Natriuret Pep Total Protein Albumin Triglycerides TSH Arterial Blood Glucose Arterial Blood Ionized Calcium Urine pH Urine WBC (Auto) Urine Creatinine 10/16/20 10/16/20 10/16/20 06:36 11:08 17:07 WBC RBC Hgb Hct RDW Lymph % (Auto) [place] % (Auto) Eos % (Auto) Lymph # (Auto) [place] # (Auto) Eos # (Auto) Seg Neutrophils % Lymphocytes % (Manual) Monocytes % (Manual) Seg Neutrophils # Seg Neutrophils # Man Lymphocytes # (Manual) Monocytes # (Manual) D-Dimer Heparin Anti-Xa Level ABG pH POC ABG pCO2 POC ABG pO2 ABG pO2 ABG HCO3 ABG O2 Saturation ABG Base Excess ABG Hemoglobin ABG Oxyhemoglobin ABG Sodium ABG Potassium ABG Chloride ABG Glucose VBG pH Oxyhemoglobin Carboxyhemoglobin Sodium Potassium Chloride Carbon Dioxide BUN Creatinine Glucose POC Glucose 150 H 111 H 132 H Lactic Acid Calcium Phosphorus Magnesium Total Bilirubin AST ALT Ammonia Lactate Dehydrogenase Total Creatine Kinase CK-MB (CK-2) Troponin T NT-Pro-B Natriuret Pep Total Protein Albumin Triglycerides TSH Arterial Blood Glucose Arterial Blood Ionized Calcium Urine pH Urine WBC (Auto) Urine Creatinine 10/16/20 10/17/20 10/17/20 23:38 03:32 03:32 WBC RBC Hgb Hct RDW Lymph % (Auto) [place] % (Auto) Eos % (Auto) Lymph # (Auto) [place] # (Auto) Eos # (Auto) Seg Neutrophils % Lymphocytes % (Manual) Monocytes % (Manual) Seg Neutrophils # Seg Neutrophils # Man Lymphocytes # (Manual) Monocytes # (Manual) D-Dimer Heparin Anti-Xa Level ABG pH POC ABG pCO2 POC ABG pO2 ABG pO2 ABG HCO3 ABG O2 Saturation ABG Base Excess ABG Hemoglobin ABG Oxyhemoglobin ABG Sodium ABG Potassium ABG Chloride ABG Glucose VBG pH Oxyhemoglobin Carboxyhemoglobin Sodium 146 H Potassium Chloride Carbon Dioxide 32 H BUN 57 H Creatinine 2.4 H D Glucose 124 H POC Glucose 117 H Lactic Acid Calcium Phosphorus 5.20 H D Magnesium Total Bilirubin AST ALT Ammonia Lactate Dehydrogenase Total Creatine Kinase CK-MB (CK-2) Troponin T NT-Pro-B Natriuret Pep Total Protein Albumin Triglycerides TSH Arterial Blood Glucose Arterial Blood Ionized Calcium Urine pH Urine WBC (Auto) Urine Creatinine 10/17/20 10/17/20 10/18/20 05:10 17:33 00:13 WBC RBC Hgb Hct RDW Lymph % (Auto) [place] % (Auto) Eos % (Auto) Lymph # (Auto) [place] # (Auto) Eos # (Auto) Seg Neutrophils % Lymphocytes % (Manual) Monocytes % (Manual) Seg Neutrophils # Seg Neutrophils # Man Lymphocytes # (Manual) Monocytes # (Manual) D-Dimer Heparin Anti-Xa Level ABG pH POC ABG pCO2 POC ABG pO2 ABG pO2 ABG HCO3 ABG O2 Saturation ABG Base Excess ABG Hemoglobin ABG Oxyhemoglobin ABG Sodium ABG Potassium ABG Chloride ABG Glucose VBG pH Oxyhemoglobin Carboxyhemoglobin Sodium Potassium Chloride Carbon Dioxide BUN Creatinine Glucose POC Glucose 122 H 121 H 23 L Lactic Acid Calcium Phosphorus Magnesium Total Bilirubin AST ALT Ammonia Lactate Dehydrogenase Total Creatine Kinase CK-MB (CK-2) Troponin T NT-Pro-B Natriuret Pep Total Protein Albumin Triglycerides TSH Arterial Blood Glucose Arterial Blood Ionized Calcium Urine pH Urine WBC (Auto) Urine Creatinine 10/18/20 10/18/20 10/18/20 00:16 03:27 03:27 WBC RBC Hgb 11.7 L Hct RDW Lymph % (Auto) [place] % (Auto) Eos % (Auto) Lymph # (Auto) [place] # (Auto) Eos # (Auto) Seg Neutrophils % Lymphocytes % (Manual) Monocytes % (Manual) Seg Neutrophils # Seg Neutrophils # Man Lymphocytes # (Manual) Monocytes # (Manual) D-Dimer Heparin Anti-Xa Level ABG pH POC ABG pCO2 POC ABG pO2 ABG pO2 ABG HCO3 ABG O2 Saturation ABG Base Excess ABG Hemoglobin ABG Oxyhemoglobin ABG Sodium ABG Potassium ABG Chloride ABG Glucose VBG pH Oxyhemoglobin Carboxyhemoglobin Sodium Potassium Chloride 97.6 L Carbon Dioxide BUN 90 H Creatinine 3.3 H Glucose 146 H POC Glucose 134 H Lactic Acid Calcium Phosphorus Magnesium Total Bilirubin 1.70 H AST ALT Ammonia Lactate Dehydrogenase Total Creatine Kinase CK-MB (CK-2) Troponin T NT-Pro-B Natriuret Pep Total Protein Albumin 3.1 L Triglycerides TSH Arterial Blood Glucose Arterial Blood Ionized Calcium Urine pH Urine WBC (Auto) Urine Creatinine 10/18/20 10/18/20 10/18/20 05:09 11:19 17:15 WBC RBC Hgb Hct RDW Lymph % (Auto) [place] % (Auto) Eos % (Auto) Lymph # (Auto) [place] # (Auto) Eos # (Auto) Seg Neutrophils % Lymphocytes % (Manual) Monocytes % (Manual) Seg Neutrophils # Seg Neutrophils # Man Lymphocytes # (Manual) Monocytes # (Manual) D-Dimer Heparin Anti-Xa Level ABG pH POC ABG pCO2 POC ABG pO2 ABG pO2 ABG HCO3 ABG O2 Saturation ABG Base Excess ABG Hemoglobin ABG Oxyhemoglobin ABG Sodium ABG Potassium ABG Chloride ABG Glucose VBG pH Oxyhemoglobin Carboxyhemoglobin Sodium Potassium Chloride Carbon Dioxide BUN Creatinine Glucose POC Glucose 144 H 145 H 151 H Lactic Acid Calcium Phosphorus Magnesium Total Bilirubin AST ALT Ammonia Lactate Dehydrogenase Total Creatine Kinase CK-MB (CK-2) Troponin T NT-Pro-B Natriuret Pep Total Protein Albumin Triglycerides TSH Arterial Blood Glucose Arterial Blood Ionized Calcium Urine pH Urine WBC (Auto) Urine Creatinine 10/18/20 10/18/20 10/19/20 23:16 Unknown 04:55 WBC RBC Hgb Hct RDW Lymph % (Auto) [place] % (Auto) Eos % (Auto) Lymph # (Auto) [place] # (Auto) Eos # (Auto) Seg Neutrophils % Lymphocytes % (Manual) Monocytes % (Manual) Seg Neutrophils # Seg Neutrophils # Man Lymphocytes # (Manual) Monocytes # (Manual) D-Dimer Heparin Anti-Xa Level ABG pH POC ABG pCO2 POC ABG pO2 ABG pO2 ABG HCO3 ABG O2 Saturation ABG Base Excess ABG Hemoglobin ABG Oxyhemoglobin ABG Sodium ABG Potassium ABG Chloride ABG Glucose VBG pH Oxyhemoglobin Carboxyhemoglobin Sodium Potassium Chloride Carbon Dioxide BUN 104 H Creatinine 3.1 H Glucose 139 H POC Glucose 123 H Lactic Acid Calcium Phosphorus Magnesium Total Bilirubin AST ALT Ammonia Lactate Dehydrogenase Total Creatine Kinase CK-MB (CK-2) Troponin T NT-Pro-B Natriuret Pep Total Protein Albumin Triglycerides TSH Arterial Blood Glucose Arterial Blood Ionized Calcium Urine pH Urine WBC (Auto) 115.0 H Urine Creatinine 10/19/20 10/19/20 10/19/20 04:55 11:35 13:14 WBC 15.1 H RBC Hgb 11.1 L Hct 34.4 L RDW Lymph % (Auto) 4.2 L [place] % (Auto) 11.9 H Eos % (Auto) Lymph # (Auto) 0.6 L [place] # (Auto) 1.8 H Eos # (Auto) Seg Neutrophils % 82.0 H Lymphocytes % (Manual) Monocytes % (Manual) Seg Neutrophils # 12.4 H Seg Neutrophils # Man Lymphocytes # (Manual) Monocytes # (Manual) D-Dimer Heparin Anti-Xa Level ABG pH POC ABG pCO2 POC ABG pO2 ABG pO2 ABG HCO3 ABG O2 Saturation ABG Base Excess ABG Hemoglobin ABG Oxyhemoglobin ABG Sodium ABG Potassium ABG Chloride ABG Glucose VBG pH Oxyhemoglobin Carboxyhemoglobin Sodium Potassium Chloride Carbon Dioxide BUN Creatinine Glucose POC Glucose 136 H Lactic Acid Calcium Phosphorus Magnesium Total Bilirubin AST ALT Ammonia Lactate Dehydrogenase Total Creatine Kinase CK-MB (CK-2) Troponin T NT-Pro-B Natriuret Pep Total Protein Albumin Triglycerides TSH Arterial Blood Glucose Arterial Blood Ionized Calcium Urine pH Urine WBC (Auto) Urine Creatinine 93.7 H 10/19/20 10/19/20 10/20/20 17:53 23:39 04:30 WBC RBC Hgb Hct RDW Lymph % (Auto) [place] % (Auto) Eos % (Auto) Lymph # (Auto) [place] # (Auto) Eos # (Auto) Seg Neutrophils % Lymphocytes % (Manual) Monocytes % (Manual) Seg Neutrophils # Seg Neutrophils # Man Lymphocytes # (Manual) Monocytes # (Manual) D-Dimer Heparin Anti-Xa Level ABG pH POC ABG pCO2 POC ABG pO2 ABG pO2 ABG HCO3 ABG O2 Saturation ABG Base Excess ABG Hemoglobin ABG Oxyhemoglobin ABG Sodium ABG Potassium ABG Chloride ABG Glucose VBG pH Oxyhemoglobin Carboxyhemoglobin Sodium Potassium Chloride Carbon Dioxide BUN 104 H Creatinine 2.8 H Glucose 151 H POC Glucose 137 H 133 H Lactic Acid Calcium Phosphorus Magnesium Total Bilirubin AST ALT Ammonia Lactate Dehydrogenase Total Creatine Kinase CK-MB (CK-2) Troponin T NT-Pro-B Natriuret Pep Total Protein Albumin Triglycerides TSH Arterial Blood Glucose Arterial Blood Ionized Calcium Urine pH Urine WBC (Auto) Urine Creatinine 10/20/20 10/20/20 10/20/20 04:30 05:38 11:34 WBC 17.9 H RBC Hgb 11.7 L Hct RDW Lymph % (Auto) [place] % (Auto) Eos % (Auto) Lymph # (Auto) [place] # (Auto) Eos # (Auto) Seg Neutrophils % Lymphocytes % (Manual) Monocytes % (Manual) Seg Neutrophils # Seg Neutrophils # Man Lymphocytes # (Manual) Monocytes # (Manual) D-Dimer Heparin Anti-Xa Level ABG pH POC ABG pCO2 POC ABG pO2 ABG pO2 ABG HCO3 ABG O2 Saturation ABG Base Excess ABG Hemoglobin ABG Oxyhemoglobin ABG Sodium ABG Potassium ABG Chloride ABG Glucose VBG pH Oxyhemoglobin Carboxyhemoglobin Sodium Potassium Chloride Carbon Dioxide BUN Creatinine Glucose POC Glucose 164 H 148 H Lactic Acid Calcium Phosphorus Magnesium Total Bilirubin AST ALT Ammonia Lactate Dehydrogenase Total Creatine Kinase CK-MB (CK-2) Troponin T NT-Pro-B Natriuret Pep Total Protein Albumin Triglycerides TSH Arterial Blood Glucose Arterial Blood Ionized Calcium Urine pH Urine WBC (Auto) Urine Creatinine 10/20/20 10/20/20 10/20/20 17:40 20:20 23:29 WBC RBC Hgb Hct RDW Lymph % (Auto) [place] % (Auto) Eos % (Auto) Lymph # (Auto) [place] # (Auto) Eos # (Auto) Seg Neutrophils % Lymphocytes % (Manual) Monocytes % (Manual) Seg Neutrophils # Seg Neutrophils # Man Lymphocytes # (Manual) Monocytes # (Manual) D-Dimer Heparin Anti-Xa Level ABG pH 7.292 L POC ABG pCO2 68.5 H POC ABG pO2 ABG pO2 ABG HCO3 ABG O2 Saturation ABG Base Excess ABG Hemoglobin 11.6 L ABG Oxyhemoglobin ABG Sodium ABG Potassium ABG Chloride ABG Glucose 145 H VBG pH Oxyhemoglobin Carboxyhemoglobin Sodium Potassium Chloride Carbon Dioxide BUN Creatinine Glucose POC Glucose 130 H 136 H Lactic Acid Calcium Phosphorus Magnesium Total Bilirubin AST ALT Ammonia Lactate Dehydrogenase Total Creatine Kinase CK-MB (CK-2) Troponin T NT-Pro-B Natriuret Pep Total Protein Albumin Triglycerides TSH Arterial Blood Glucose 145 H Arterial Blood Ionized Calcium Urine pH Urine WBC (Auto) Urine Creatinine 10/21/20 10/21/20 10/21/20 04:20 06:26 06:30 WBC RBC Hgb Hct RDW Lymph % (Auto) [place] % (Auto) Eos % (Auto) Lymph # (Auto) [place] # (Auto) Eos # (Auto) Seg Neutrophils % Lymphocytes % (Manual) Monocytes % (Manual) Seg Neutrophils # Seg Neutrophils # Man Lymphocytes # (Manual) Monocytes # (Manual) D-Dimer Heparin Anti-Xa Level ABG pH 7.262 L POC ABG pCO2 72.4 H POC ABG pO2 81.6 L ABG pO2 ABG HCO3 ABG O2 Saturation ABG Base Excess ABG Hemoglobin 11.6 L ABG Oxyhemoglobin ABG Sodium ABG Potassium ABG Chloride ABG Glucose 140 H VBG pH Oxyhemoglobin Carboxyhemoglobin Sodium Potassium Chloride Carbon Dioxide 33 H BUN 104 H Creatinine 2.9 H Glucose 153 H POC Glucose 128 H Lactic Acid Calcium Phosphorus Magnesium Total Bilirubin AST ALT Ammonia Lactate Dehydrogenase Total Creatine Kinase CK-MB (CK-2) Troponin T NT-Pro-B Natriuret Pep Total Protein Albumin Triglycerides TSH Arterial Blood Glucose 140 H Arterial Blood Ionized Calcium Urine pH Urine WBC (Auto) Urine Creatinine 10/21/20 10/21/20 10/21/20 06:30 11:24 17:21 WBC 13.3 H RBC Hgb 10.7 L Hct 32.7 L RDW Lymph % (Auto) [place] % (Auto) Eos % (Auto) Lymph # (Auto) [place] # (Auto) Eos # (Auto) Seg Neutrophils % Lymphocytes % (Manual) Monocytes % (Manual) Seg Neutrophils # Seg Neutrophils # Man Lymphocytes # (Manual) Monocytes # (Manual) D-Dimer Heparin Anti-Xa Level ABG pH POC ABG pCO2 POC ABG pO2 ABG pO2 ABG HCO3 ABG O2 Saturation ABG Base Excess ABG Hemoglobin ABG Oxyhemoglobin ABG Sodium ABG Potassium ABG Chloride ABG Glucose VBG pH Oxyhemoglobin Carboxyhemoglobin Sodium Potassium Chloride Carbon Dioxide BUN Creatinine Glucose POC Glucose 178 H 138 H Lactic Acid Calcium Phosphorus Magnesium Total Bilirubin AST ALT Ammonia Lactate Dehydrogenase Total Creatine Kinase CK-MB (CK-2) Troponin T NT-Pro-B Natriuret Pep Total Protein Albumin Triglycerides TSH Arterial Blood Glucose Arterial Blood Ionized Calcium Urine pH Urine WBC (Auto) Urine Creatinine 10/22/20 10/22/20 10/22/20 00:05 04:30 06:15 WBC RBC Hgb Hct RDW Lymph % (Auto) [place] % (Auto) Eos % (Auto) Lymph # (Auto) [place] # (Auto) Eos # (Auto) Seg Neutrophils % Lymphocytes % (Manual) Monocytes % (Manual) Seg Neutrophils # Seg Neutrophils # Man Lymphocytes # (Manual) Monocytes # (Manual) D-Dimer Heparin Anti-Xa Level ABG pH 7.225 L POC ABG pCO2 76.6 H POC ABG pO2 ABG pO2 ABG HCO3 ABG O2 Saturation ABG Base Excess ABG Hemoglobin 11.1 L ABG Oxyhemoglobin ABG Sodium ABG Potassium ABG Chloride ABG Glucose 151 H VBG pH Oxyhemoglobin Carboxyhemoglobin Sodium Potassium Chloride Carbon Dioxide 32 H BUN 103 H Creatinine 2.7 H Glucose 151 H POC Glucose 135 H Lactic Acid Calcium Phosphorus Magnesium Total Bilirubin AST ALT Ammonia Lactate Dehydrogenase Total Creatine Kinase CK-MB (CK-2) Troponin T NT-Pro-B Natriuret Pep Total Protein Albumin Triglycerides TSH Arterial Blood Glucose 151 H Arterial Blood Ionized Calcium Urine pH Urine WBC (Auto) Urine Creatinine 10/22/20 10/22/20 10/22/20 06:18 11:34 11:44 WBC RBC Hgb Hct RDW Lymph % (Auto) [place] % (Auto) Eos % (Auto) Lymph # (Auto) [place] # (Auto) Eos # (Auto) Seg Neutrophils % Lymphocytes % (Manual) Monocytes % (Manual) Seg Neutrophils # Seg Neutrophils # Man Lymphocytes # (Manual) Monocytes # (Manual) D-Dimer Heparin Anti-Xa Level ABG pH 7.278 L POC ABG pCO2 67.8 H POC ABG pO2 ABG pO2 ABG HCO3 ABG O2 Saturation ABG Base Excess ABG Hemoglobin 10.2 L ABG Oxyhemoglobin ABG Sodium ABG Potassium ABG Chloride ABG Glucose 172 H VBG pH Oxyhemoglobin Carboxyhemoglobin Sodium Potassium Chloride Carbon Dioxide BUN Creatinine Glucose POC Glucose 137 H 147 H Lactic Acid Calcium Phosphorus Magnesium Total Bilirubin AST ALT Ammonia Lactate Dehydrogenase Total Creatine Kinase CK-MB (CK-2) Troponin T NT-Pro-B Natriuret Pep Total Protein Albumin Triglycerides TSH Arterial Blood Glucose 172 H Arterial Blood Ionized Calcium Urine pH Urine WBC (Auto) Urine Creatinine 10/22/20 10/22/20 10/23/20 17:40 23:55 05:11 WBC RBC Hgb Hct RDW Lymph % (Auto) [place] % (Auto) Eos % (Auto) Lymph # (Auto) [place] # (Auto) Eos # (Auto) Seg Neutrophils % Lymphocytes % (Manual) Monocytes % (Manual) Seg Neutrophils # Seg Neutrophils # Man Lymphocytes # (Manual) Monocytes # (Manual) D-Dimer Heparin Anti-Xa Level ABG pH POC ABG pCO2 63.6 H POC ABG pO2 81.2 L ABG pO2 ABG HCO3 ABG O2 Saturation ABG Base Excess ABG Hemoglobin 10.6 L ABG Oxyhemoglobin ABG Sodium ABG Potassium ABG Chloride 109.0 H ABG Glucose 149 H VBG pH Oxyhemoglobin Carboxyhemoglobin Sodium Potassium Chloride Carbon Dioxide BUN Creatinine Glucose POC Glucose 141 H 139 H Lactic Acid Calcium Phosphorus Magnesium Total Bilirubin AST ALT Ammonia Lactate Dehydrogenase Total Creatine Kinase CK-MB (CK-2) Troponin T NT-Pro-B Natriuret Pep Total Protein Albumin Triglycerides TSH Arterial Blood Glucose 149 H Arterial Blood Ionized Calcium Urine pH Urine WBC (Auto) Urine Creatinine 10/23/20 10/23/20 10/23/20 05:39 06:00 11:32 WBC RBC Hgb Hct RDW Lymph % (Auto) [place] % (Auto) Eos % (Auto) Lymph # (Auto) [place] # (Auto) Eos # (Auto) Seg Neutrophils % Lymphocytes % (Manual) Monocytes % (Manual) Seg Neutrophils # Seg Neutrophils # Man Lymphocytes # (Manual) Monocytes # (Manual) D-Dimer Heparin Anti-Xa Level ABG pH POC ABG pCO2 POC ABG pO2 ABG pO2 ABG HCO3 ABG O2 Saturation ABG Base Excess ABG Hemoglobin ABG Oxyhemoglobin ABG Sodium ABG Potassium ABG Chloride ABG Glucose VBG pH Oxyhemoglobin Carboxyhemoglobin Sodium 146 H Potassium Chloride Carbon Dioxide 35 H BUN 92 H Creatinine 2.0 H Glucose 144 H POC Glucose 139 H 176 H Lactic Acid Calcium Phosphorus Magnesium Total Bilirubin AST ALT Ammonia Lactate Dehydrogenase Total Creatine Kinase CK-MB (CK-2) Troponin T NT-Pro-B Natriuret Pep Total Protein Albumin Triglycerides TSH Arterial Blood Glucose Arterial Blood Ionized Calcium Urine pH Urine WBC (Auto) Urine Creatinine 10/23/20 10/23/20 10/24/20 11:34 17:55 05:33 WBC RBC Hgb Hct RDW Lymph % (Auto) [place] % (Auto) Eos % (Auto) Lymph # (Auto) [place] # (Auto) Eos # (Auto) Seg Neutrophils % Lymphocytes % (Manual) Monocytes % (Manual) Seg Neutrophils # Seg Neutrophils # Man Lymphocytes # (Manual) Monocytes # (Manual) D-Dimer Heparin Anti-Xa Level ABG pH POC ABG pCO2 POC ABG pO2 ABG pO2 ABG HCO3 ABG O2 Saturation ABG Base Excess ABG Hemoglobin ABG Oxyhemoglobin ABG Sodium ABG Potassium ABG Chloride ABG Glucose VBG pH Oxyhemoglobin Carboxyhemoglobin Sodium 147 H Potassium Chloride Carbon Dioxide 32 H BUN 76 H Creatinine 1.7 H Glucose 172 H POC Glucose 173 H 135 H Lactic Acid Calcium Phosphorus Magnesium Total Bilirubin AST ALT Ammonia Lactate Dehydrogenase Total Creatine Kinase CK-MB (CK-2) Troponin T NT-Pro-B Natriuret Pep Total Protein Albumin Triglycerides TSH Arterial Blood Glucose Arterial Blood Ionized Calcium Urine pH Urine WBC (Auto) Urine Creatinine 10/24/20 10/24/20 10/24/20 05:41 12:09 18:09 WBC RBC Hgb Hct RDW Lymph % (Auto) [place] % (Auto) Eos % (Auto) Lymph # (Auto) [place] # (Auto) Eos # (Auto) Seg Neutrophils % Lymphocytes % (Manual) Monocytes % (Manual) Seg Neutrophils # Seg Neutrophils # Man Lymphocytes # (Manual) Monocytes # (Manual) D-Dimer Heparin Anti-Xa Level ABG pH POC ABG pCO2 POC ABG pO2 ABG pO2 ABG HCO3 ABG O2 Saturation ABG Base Excess ABG Hemoglobin ABG Oxyhemoglobin ABG Sodium ABG Potassium ABG Chloride ABG Glucose VBG pH Oxyhemoglobin Carboxyhemoglobin Sodium Potassium Chloride Carbon Dioxide BUN Creatinine Glucose POC Glucose 156 H 154 H 132 H Lactic Acid Calcium Phosphorus Magnesium Total Bilirubin AST ALT Ammonia Lactate Dehydrogenase Total Creatine Kinase CK-MB (CK-2) Troponin T NT-Pro-B Natriuret Pep Total Protein Albumin Triglycerides TSH Arterial Blood Glucose Arterial Blood Ionized Calcium Urine pH Urine WBC (Auto) Urine Creatinine 10/24/20 10/25/20 10/25/20 23:39 05:29 08:55 WBC RBC Hgb Hct RDW Lymph % (Auto) [place] % (Auto) Eos % (Auto) Lymph # (Auto) [place] # (Auto) Eos # (Auto) Seg Neutrophils % Lymphocytes % (Manual) Monocytes % (Manual) Seg Neutrophils # Seg Neutrophils # Man Lymphocytes # (Manual) Monocytes # (Manual) D-Dimer Heparin Anti-Xa Level ABG pH POC ABG pCO2 POC ABG pO2 ABG pO2 ABG HCO3 ABG O2 Saturation ABG Base Excess ABG Hemoglobin ABG Oxyhemoglobin ABG Sodium ABG Potassium ABG Chloride ABG Glucose VBG pH Oxyhemoglobin Carboxyhemoglobin Sodium 150 H Potassium Chloride 108.3 H Carbon Dioxide 32 H BUN 57 H Creatinine 1.5 H Glucose 142 H POC Glucose 131 H 142 H Lactic Acid Calcium Phosphorus Magnesium Total Bilirubin AST ALT Ammonia Lactate Dehydrogenase Total Creatine Kinase CK-MB (CK-2) Troponin T NT-Pro-B Natriuret Pep Total Protein Albumin Triglycerides TSH Arterial Blood Glucose Arterial Blood Ionized Calcium Urine pH Urine WBC (Auto) Urine Creatinine 10/25/20 10/25/20 10/25/20 08:55 11:08 18:10 WBC 14.3 H RBC 3.57 L Hgb 10.3 L Hct 31.6 L RDW Lymph % (Auto) [place] % (Auto) Eos % (Auto) Lymph # (Auto) [place] # (Auto) Eos # (Auto) Seg Neutrophils % Lymphocytes % (Manual) Monocytes % (Manual) Seg Neutrophils # Seg Neutrophils # Man Lymphocytes # (Manual) Monocytes # (Manual) D-Dimer Heparin Anti-Xa Level ABG pH POC ABG pCO2 52.3 H POC ABG pO2 ABG pO2 ABG HCO3 ABG O2 Saturation ABG Base Excess ABG Hemoglobin 11.2 L ABG Oxyhemoglobin ABG Sodium ABG Potassium ABG Chloride 108.0 H ABG Glucose 167 H VBG pH Oxyhemoglobin Carboxyhemoglobin Sodium Potassium Chloride Carbon Dioxide BUN Creatinine Glucose POC Glucose 157 H Lactic Acid Calcium Phosphorus Magnesium Total Bilirubin AST ALT Ammonia Lactate Dehydrogenase Total Creatine Kinase CK-MB (CK-2) Troponin T NT-Pro-B Natriuret Pep Total Protein Albumin Triglycerides TSH Arterial Blood Glucose 167 H Arterial Blood Ionized Calcium Urine pH Urine WBC (Auto) Urine Creatinine 10/25/20 10/26/20 10/26/20 18:20 00:20 06:08 WBC RBC Hgb Hct RDW Lymph % (Auto) [place] % (Auto) Eos % (Auto) Lymph # (Auto) [place] # (Auto) Eos # (Auto) Seg Neutrophils % Lymphocytes % (Manual) Monocytes % (Manual) Seg Neutrophils # Seg Neutrophils # Man Lymphocytes # (Manual) Monocytes # (Manual) D-Dimer Heparin Anti-Xa Level ABG pH POC ABG pCO2 POC ABG pO2 ABG pO2 ABG HCO3 ABG O2 Saturation ABG Base Excess ABG Hemoglobin ABG Oxyhemoglobin ABG Sodium ABG Potassium ABG Chloride ABG Glucose VBG pH Oxyhemoglobin Carboxyhemoglobin Sodium Potassium Chloride Carbon Dioxide BUN Creatinine Glucose POC Glucose 127 H 108 H 119 H Lactic Acid Calcium Phosphorus Magnesium Total Bilirubin AST ALT Ammonia Lactate Dehydrogenase Total Creatine Kinase CK-MB (CK-2) Troponin T NT-Pro-B Natriuret Pep Total Protein Albumin Triglycerides TSH Arterial Blood Glucose Arterial Blood Ionized Calcium Urine pH Urine WBC (Auto) Urine Creatinine 10/26/20 10/26/20 10/26/20 07:38 07:38 11:28 WBC 13.5 H RBC 3.37 L Hgb 9.8 L Hct 30.0 L RDW Lymph % (Auto) [place] % (Auto) Eos % (Auto) Lymph # (Auto) [place] # (Auto) Eos # (Auto) Seg Neutrophils % Lymphocytes % (Manual) Monocytes % (Manual) Seg Neutrophils # Seg Neutrophils # Man Lymphocytes # (Manual) Monocytes # (Manual) D-Dimer Heparin Anti-Xa Level ABG pH POC ABG pCO2 POC ABG pO2 ABG pO2 ABG HCO3 ABG O2 Saturation ABG Base Excess ABG Hemoglobin ABG Oxyhemoglobin ABG Sodium ABG Potassium ABG Chloride ABG Glucose VBG pH Oxyhemoglobin Carboxyhemoglobin Sodium 149 H Potassium Chloride 107.6 H Carbon Dioxide 34 H BUN 49 H Creatinine 1.4 H Glucose 137 H POC Glucose 148 H Lactic Acid Calcium Phosphorus Magnesium Total Bilirubin AST ALT Ammonia Lactate Dehydrogenase Total Creatine Kinase CK-MB (CK-2) Troponin T NT-Pro-B Natriuret Pep Total Protein Albumin Triglycerides TSH Arterial Blood Glucose Arterial Blood Ionized Calcium Urine pH Urine WBC (Auto) Urine Creatinine 10/26/20 10/26/20 10/27/20 18:17 23:37 05:08 WBC RBC Hgb Hct RDW Lymph % (Auto) [place] % (Auto) Eos % (Auto) Lymph # (Auto) [place] # (Auto) Eos # (Auto) Seg Neutrophils % Lymphocytes % (Manual) Monocytes % (Manual) Seg Neutrophils # Seg Neutrophils # Man Lymphocytes # (Manual) Monocytes # (Manual) D-Dimer Heparin Anti-Xa Level ABG pH POC ABG pCO2 POC ABG pO2 ABG pO2 ABG HCO3 ABG O2 Saturation ABG Base Excess ABG Hemoglobin ABG Oxyhemoglobin ABG Sodium ABG Potassium ABG Chloride ABG Glucose VBG pH Oxyhemoglobin Carboxyhemoglobin Sodium Potassium Chloride Carbon Dioxide BUN Creatinine Glucose POC Glucose 121 H 152 H 120 H Lactic Acid Calcium Phosphorus Magnesium Total Bilirubin AST ALT Ammonia Lactate Dehydrogenase Total Creatine Kinase CK-MB (CK-2) Troponin T NT-Pro-B Natriuret Pep Total Protein Albumin Triglycerides TSH Arterial Blood Glucose Arterial Blood Ionized Calcium Urine pH Urine WBC (Auto) Urine Creatinine 10/27/20 10/27/20 10/27/20 07:30 07:30 11:59 WBC RBC 3.46 L Hgb 10.2 L Hct 30.9 L RDW Lymph % (Auto) [place] % (Auto) Eos % (Auto) Lymph # (Auto) [place] # (Auto) Eos # (Auto) Seg Neutrophils % Lymphocytes % (Manual) Monocytes % (Manual) Seg Neutrophils # Seg Neutrophils # Man Lymphocytes # (Manual) Monocytes # (Manual) D-Dimer Heparin Anti-Xa Level ABG pH POC ABG pCO2 POC ABG pO2 ABG pO2 ABG HCO3 ABG O2 Saturation ABG Base Excess ABG Hemoglobin ABG Oxyhemoglobin ABG Sodium ABG Potassium ABG Chloride ABG Glucose VBG pH Oxyhemoglobin Carboxyhemoglobin Sodium 146 H Potassium Chloride Carbon Dioxide 34 H BUN 45 H Creatinine Glucose 131 H POC Glucose 143 H Lactic Acid Calcium Phosphorus Magnesium Total Bilirubin AST ALT Ammonia Lactate Dehydrogenase Total Creatine Kinase CK-MB (CK-2) Troponin T NT-Pro-B Natriuret Pep Total Protein Albumin Triglycerides TSH Arterial Blood Glucose Arterial Blood Ionized Calcium Urine pH Urine WBC (Auto) Urine Creatinine 10/27/20 10/27/20 10/28/20 18:52 23:03 07:00 WBC RBC Hgb Hct RDW Lymph % (Auto) [place] % (Auto) Eos % (Auto) Lymph # (Auto) [place] # (Auto) Eos # (Auto) Seg Neutrophils % Lymphocytes % (Manual) Monocytes % (Manual) Seg Neutrophils # Seg Neutrophils # Man Lymphocytes # (Manual) Monocytes # (Manual) D-Dimer Heparin Anti-Xa Level ABG pH POC ABG pCO2 POC ABG pO2 ABG pO2 ABG HCO3 ABG O2 Saturation ABG Base Excess ABG Hemoglobin ABG Oxyhemoglobin ABG Sodium ABG Potassium ABG Chloride ABG Glucose VBG pH Oxyhemoglobin Carboxyhemoglobin Sodium 147 H Potassium Chloride Carbon Dioxide 35 H BUN 39 H Creatinine Glucose 133 H POC Glucose 119 H 158 H Lactic Acid Calcium Phosphorus Magnesium Total Bilirubin AST ALT Ammonia Lactate Dehydrogenase Total Creatine Kinase CK-MB (CK-2) Troponin T NT-Pro-B Natriuret Pep Total Protein Albumin Triglycerides TSH Arterial Blood Glucose Arterial Blood Ionized Calcium Urine pH Urine WBC (Auto) Urine Creatinine 10/28/20 10/28/20 10/28/20 09:00 11:47 17:15 WBC 12.5 H RBC 3.58 L Hgb 10.5 L Hct 32.1 L RDW Lymph % (Auto) [place] % (Auto) Eos % (Auto) Lymph # (Auto) [place] # (Auto) Eos # (Auto) Seg Neutrophils % Lymphocytes % (Manual) Monocytes % (Manual) Seg Neutrophils # Seg Neutrophils # Man Lymphocytes # (Manual) Monocytes # (Manual) D-Dimer Heparin Anti-Xa Level ABG pH POC ABG pCO2 POC ABG pO2 ABG pO2 ABG HCO3 ABG O2 Saturation ABG Base Excess ABG Hemoglobin ABG Oxyhemoglobin ABG Sodium ABG Potassium ABG Chloride ABG Glucose VBG pH Oxyhemoglobin Carboxyhemoglobin Sodium Potassium Chloride Carbon Dioxide BUN Creatinine Glucose POC Glucose 129 H 109 H Lactic Acid Calcium Phosphorus Magnesium Total Bilirubin AST ALT Ammonia Lactate Dehydrogenase Total Creatine Kinase CK-MB (CK-2) Troponin T NT-Pro-B Natriuret Pep Total Protein Albumin Triglycerides TSH Arterial Blood Glucose Arterial Blood Ionized Calcium Urine pH Urine WBC (Auto) Urine Creatinine 10/28/20 10/29/20 10/29/20 23:31 04:23 04:23 WBC 13.6 H RBC 3.47 L Hgb 10.5 L Hct 30.7 L RDW 15.4 H Lymph % (Auto) [place] % (Auto) Eos % (Auto) Lymph # (Auto) [place] # (Auto) Eos # (Auto) Seg Neutrophils % Lymphocytes % (Manual) Monocytes % (Manual) Seg Neutrophils # Seg Neutrophils # Man Lymphocytes # (Manual) Monocytes # (Manual) D-Dimer Heparin Anti-Xa Level ABG pH POC ABG pCO2 POC ABG pO2 ABG pO2 ABG HCO3 ABG O2 Saturation ABG Base Excess ABG Hemoglobin ABG Oxyhemoglobin ABG Sodium ABG Potassium ABG Chloride ABG Glucose VBG pH Oxyhemoglobin Carboxyhemoglobin Sodium Potassium Chloride Carbon Dioxide 35 H BUN 34 H Creatinine Glucose 107 H POC Glucose 138 H Lactic Acid Calcium Phosphorus Magnesium Total Bilirubin AST ALT Ammonia Lactate Dehydrogenase Total Creatine Kinase CK-MB (CK-2) Troponin T NT-Pro-B Natriuret Pep Total Protein Albumin Triglycerides TSH Arterial Blood Glucose Arterial Blood Ionized Calcium Urine pH Urine WBC (Auto) Urine Creatinine 10/29/20 10/29/20 10/29/20 05:21 11:49 23:19 WBC RBC Hgb Hct RDW Lymph % (Auto) [place] % (Auto) Eos % (Auto) Lymph # (Auto) [place] # (Auto) Eos # (Auto) Seg Neutrophils % Lymphocytes % (Manual) Monocytes % (Manual) Seg Neutrophils # Seg Neutrophils # Man Lymphocytes # (Manual) Monocytes # (Manual) D-Dimer Heparin Anti-Xa Level ABG pH POC ABG pCO2 POC ABG pO2 ABG pO2 ABG HCO3 ABG O2 Saturation ABG Base Excess ABG Hemoglobin ABG Oxyhemoglobin ABG Sodium ABG Potassium ABG Chloride ABG Glucose VBG pH Oxyhemoglobin Carboxyhemoglobin Sodium Potassium Chloride Carbon Dioxide BUN Creatinine Glucose POC Glucose 115 H 124 H 129 H Lactic Acid Calcium Phosphorus Magnesium Total Bilirubin AST ALT Ammonia Lactate Dehydrogenase Total Creatine Kinase CK-MB (CK-2) Troponin T NT-Pro-B Natriuret Pep Total Protein Albumin Triglycerides TSH Arterial Blood Glucose Arterial Blood Ionized Calcium Urine pH Urine WBC (Auto) Urine Creatinine 10/30/20 10/30/20 10/30/20 04:59 05:10 11:52 WBC RBC Hgb Hct RDW Lymph % (Auto) [place] % (Auto) Eos % (Auto) Lymph # (Auto) [place] # (Auto) Eos # (Auto) Seg Neutrophils % Lymphocytes % (Manual) Monocytes % (Manual) Seg Neutrophils # Seg Neutrophils # Man Lymphocytes # (Manual) Monocytes # (Manual) D-Dimer Heparin Anti-Xa Level ABG pH POC ABG pCO2 POC ABG pO2 ABG pO2 ABG HCO3 ABG O2 Saturation ABG Base Excess ABG Hemoglobin ABG Oxyhemoglobin ABG Sodium ABG Potassium ABG Chloride ABG Glucose VBG pH Oxyhemoglobin Carboxyhemoglobin Sodium Potassium Chloride Carbon Dioxide 34 H BUN 33 H Creatinine Glucose 128 H POC Glucose 126 H 132 H Lactic Acid Calcium Phosphorus Magnesium Total Bilirubin AST ALT Ammonia Lactate Dehydrogenase Total Creatine Kinase CK-MB (CK-2) Troponin T NT-Pro-B Natriuret Pep Total Protein Albumin Triglycerides TSH Arterial Blood Glucose Arterial Blood Ionized Calcium Urine pH Urine WBC (Auto) Urine Creatinine 10/30/20 10/30/20 10/31/20 16:59 23:19 04:00 WBC RBC Hgb Hct RDW Lymph % (Auto) [place] % (Auto) Eos % (Auto) Lymph # (Auto) [place] # (Auto) Eos # (Auto) Seg Neutrophils % Lymphocytes % (Manual) Monocytes % (Manual) Seg Neutrophils # Seg Neutrophils # Man Lymphocytes # (Manual) Monocytes # (Manual) D-Dimer Heparin Anti-Xa Level ABG pH POC ABG pCO2 POC ABG pO2 ABG pO2 ABG HCO3 ABG O2 Saturation ABG Base Excess ABG Hemoglobin ABG Oxyhemoglobin ABG Sodium ABG Potassium ABG Chloride ABG Glucose VBG pH Oxyhemoglobin Carboxyhemoglobin Sodium Potassium Chloride Carbon Dioxide 38 H BUN 32 H Creatinine Glucose 121 H POC Glucose 118 H 138 H Lactic Acid Calcium Phosphorus Magnesium Total Bilirubin AST ALT Ammonia Lactate Dehydrogenase Total Creatine Kinase CK-MB (CK-2) Troponin T NT-Pro-B Natriuret Pep Total Protein Albumin Triglycerides TSH Arterial Blood Glucose Arterial Blood Ionized Calcium Urine pH Urine WBC (Auto) Urine Creatinine 10/31/20 10/31/20 10/31/20 05:13 11:09 16:17 WBC RBC Hgb Hct RDW Lymph % (Auto) [place] % (Auto) Eos % (Auto) Lymph # (Auto) [place] # (Auto) Eos # (Auto) Seg Neutrophils % Lymphocytes % (Manual) Monocytes % (Manual) Seg Neutrophils # Seg Neutrophils # Man Lymphocytes # (Manual) Monocytes # (Manual) D-Dimer Heparin Anti-Xa Level ABG pH POC ABG pCO2 71.1 H POC ABG pO2 67.4 L ABG pO2 ABG HCO3 ABG O2 Saturation ABG Base Excess ABG Hemoglobin 10.9 L ABG Oxyhemoglobin 90.7 L ABG Sodium ABG Potassium ABG Chloride ABG Glucose 134 H VBG pH Oxyhemoglobin Carboxyhemoglobin Sodium Potassium Chloride Carbon Dioxide BUN Creatinine Glucose POC Glucose 110 H 138 H Lactic Acid Calcium Phosphorus Magnesium Total Bilirubin AST ALT Ammonia Lactate Dehydrogenase Total Creatine Kinase CK-MB (CK-2) Troponin T NT-Pro-B Natriuret Pep Total Protein Albumin Triglycerides TSH Arterial Blood Glucose 134 H Arterial Blood Ionized Calcium Urine pH Urine WBC (Auto) Urine Creatinine 10/31/20 10/31/20 11/01/20 18:16 23:56 04:09 WBC 11.3 H RBC 3.05 L Hgb 9.0 L Hct 27.3 L RDW Lymph % (Auto) [place] % (Auto) Eos % (Auto) Lymph # (Auto) [place] # (Auto) Eos # (Auto) Seg Neutrophils % Lymphocytes % (Manual) Monocytes % (Manual) Seg Neutrophils # Seg Neutrophils # Man Lymphocytes # (Manual) Monocytes # (Manual) D-Dimer Heparin Anti-Xa Level ABG pH POC ABG pCO2 POC ABG pO2 ABG pO2 ABG HCO3 ABG O2 Saturation ABG Base Excess ABG Hemoglobin ABG Oxyhemoglobin ABG Sodium ABG Potassium ABG Chloride ABG Glucose VBG pH Oxyhemoglobin Carboxyhemoglobin Sodium Potassium Chloride Carbon Dioxide BUN Creatinine Glucose POC Glucose 135 H 122 H Lactic Acid Calcium Phosphorus Magnesium Total Bilirubin AST ALT Ammonia Lactate Dehydrogenase Total Creatine Kinase CK-MB (CK-2) Troponin T NT-Pro-B Natriuret Pep Total Protein Albumin Triglycerides TSH Arterial Blood Glucose Arterial Blood Ionized Calcium Urine pH Urine WBC (Auto) Urine Creatinine 11/01/20 11/01/20 11/01/20 05:10 11:51 17:17 WBC RBC Hgb Hct RDW Lymph % (Auto) [place] % (Auto) Eos % (Auto) Lymph # (Auto) [place] # (Auto) Eos # (Auto) Seg Neutrophils % Lymphocytes % (Manual) Monocytes % (Manual) Seg Neutrophils # Seg Neutrophils # Man Lymphocytes # (Manual) Monocytes # (Manual) D-Dimer Heparin Anti-Xa Level ABG pH POC ABG pCO2 POC ABG pO2 ABG pO2 ABG HCO3 ABG O2 Saturation ABG Base Excess ABG Hemoglobin ABG Oxyhemoglobin ABG Sodium ABG Potassium ABG Chloride ABG Glucose VBG pH Oxyhemoglobin Carboxyhemoglobin Sodium Potassium Chloride Carbon Dioxide BUN Creatinine Glucose POC Glucose 123 H 123 H 120 H Lactic Acid Calcium Phosphorus Magnesium Total Bilirubin AST ALT Ammonia Lactate Dehydrogenase Total Creatine Kinase CK-MB (CK-2) Troponin T NT-Pro-B Natriuret Pep Total Protein Albumin Triglycerides TSH Arterial Blood Glucose Arterial Blood Ionized Calcium Urine pH Urine WBC (Auto) Urine Creatinine 11/02/20 11/02/20 11/02/20 03:14 05:37 05:37 WBC RBC Hgb 9.8 L Hct 29.5 L RDW Lymph % (Auto) [place] % (Auto) Eos % (Auto) Lymph # (Auto) [place] # (Auto) Eos # (Auto) Seg Neutrophils % Lymphocytes % (Manual) Monocytes % (Manual) Seg Neutrophils # Seg Neutrophils # Man Lymphocytes # (Manual) Monocytes # (Manual) D-Dimer Heparin Anti-Xa Level ABG pH POC ABG pCO2 58.9 H POC ABG pO2 79.9 L ABG pO2 ABG HCO3 ABG O2 Saturation ABG Base Excess ABG Hemoglobin 10.6 L ABG Oxyhemoglobin ABG Sodium ABG Potassium ABG Chloride ABG Glucose 110 H VBG pH Oxyhemoglobin Carboxyhemoglobin Sodium Potassium Chloride Carbon Dioxide 37 H BUN 28 H Creatinine Glucose 106 H POC Glucose Lactic Acid Calcium Phosphorus Magnesium Total Bilirubin AST ALT Ammonia Lactate Dehydrogenase Total Creatine Kinase CK-MB (CK-2) Troponin T NT-Pro-B Natriuret Pep Total Protein Albumin Triglycerides TSH Arterial Blood Glucose 110 H Arterial Blood Ionized Calcium Urine pH Urine WBC (Auto) Urine Creatinine 11/02/20 11/03/20 11/03/20 23:29 04:45 04:45 WBC 11.8 H RBC 3.07 L Hgb 9.0 L Hct 27.2 L RDW Lymph % (Auto) 11.4 L [place] % (Auto) 9.5 H Eos % (Auto) Lymph # (Auto) [place] # (Auto) 1.1 H Eos # (Auto) Seg Neutrophils % 75.9 H Lymphocytes % (Manual) Monocytes % (Manual) Seg Neutrophils # 9.0 H Seg Neutrophils # Man Lymphocytes # (Manual) Monocytes # (Manual) D-Dimer Heparin Anti-Xa Level ABG pH POC ABG pCO2 POC ABG pO2 ABG pO2 ABG HCO3 ABG O2 Saturation ABG Base Excess ABG Hemoglobin ABG Oxyhemoglobin ABG Sodium ABG Potassium ABG Chloride ABG Glucose VBG pH Oxyhemoglobin Carboxyhemoglobin Sodium 146 H Potassium Chloride Carbon Dioxide 39 H BUN 26 H Creatinine Glucose POC Glucose 129 H Lactic Acid Calcium Phosphorus Magnesium Total Bilirubin AST ALT Ammonia Lactate Dehydrogenase Total Creatine Kinase CK-MB (CK-2) Troponin T NT-Pro-B Natriuret Pep Total Protein Albumin Triglycerides TSH Arterial Blood Glucose Arterial Blood Ionized Calcium Urine pH Urine WBC (Auto) Urine Creatinine 11/03/20 11/03/20 11/03/20 05:05 11:51 17:43 WBC RBC Hgb Hct RDW Lymph % (Auto) [place] % (Auto) Eos % (Auto) Lymph # (Auto) [place] # (Auto) Eos # (Auto) Seg Neutrophils % Lymphocytes % (Manual) Monocytes % (Manual) Seg Neutrophils # Seg Neutrophils # Man Lymphocytes # (Manual) Monocytes # (Manual) D-Dimer Heparin Anti-Xa Level ABG pH 7.452 H POC ABG pCO2 55.4 H POC ABG pO2 129.1 H ABG pO2 ABG HCO3 ABG O2 Saturation ABG Base Excess ABG Hemoglobin 9.3 L ABG Oxyhemoglobin ABG Sodium ABG Potassium ABG Chloride ABG Glucose 99 H VBG pH Oxyhemoglobin Carboxyhemoglobin 1.7 H Sodium Potassium Chloride Carbon Dioxide BUN Creatinine Glucose POC Glucose 131 H 125 H Lactic Acid Calcium Phosphorus Magnesium Total Bilirubin AST ALT Ammonia Lactate Dehydrogenase Total Creatine Kinase CK-MB (CK-2) Troponin T NT-Pro-B Natriuret Pep Total Protein Albumin Triglycerides TSH Arterial Blood Glucose 99 H Arterial Blood Ionized Calcium Urine pH Urine WBC (Auto) Urine Creatinine 11/03/20 11/04/20 11/04/20 23:27 04:00 05:10 WBC RBC Hgb Hct RDW Lymph % (Auto) [place] % (Auto) Eos % (Auto) Lymph # (Auto) [place] # (Auto) Eos # (Auto) Seg Neutrophils % Lymphocytes % (Manual) Monocytes % (Manual) Seg Neutrophils # Seg Neutrophils # Man Lymphocytes # (Manual) Monocytes # (Manual) D-Dimer Heparin Anti-Xa Level ABG pH POC ABG pCO2 POC ABG pO2 ABG pO2 ABG HCO3 ABG O2 Saturation ABG Base Excess ABG Hemoglobin ABG Oxyhemoglobin ABG Sodium ABG Potassium ABG Chloride ABG Glucose VBG pH Oxyhemoglobin Carboxyhemoglobin Sodium Potassium Chloride 95.2 L Carbon Dioxide 40 H BUN 26 H Creatinine Glucose 128 H POC Glucose 148 H 126 H Lactic Acid Calcium Phosphorus Magnesium Total Bilirubin AST ALT Ammonia Lactate Dehydrogenase Total Creatine Kinase CK-MB (CK-2) Troponin T NT-Pro-B Natriuret Pep Total Protein Albumin Triglycerides TSH Arterial Blood Glucose Arterial Blood Ionized Calcium Urine pH Urine WBC (Auto) Urine Creatinine 11/04/20 11/04/20 11/04/20 11:39 18:00 21:18 WBC RBC Hgb Hct RDW Lymph % (Auto) [place] % (Auto) Eos % (Auto) Lymph # (Auto) [place] # (Auto) Eos # (Auto) Seg Neutrophils % Lymphocytes % (Manual) Monocytes % (Manual) Seg Neutrophils # Seg Neutrophils # Man Lymphocytes # (Manual) Monocytes # (Manual) D-Dimer Heparin Anti-Xa Level ABG pH 7.511 H POC ABG pCO2 49.0 H POC ABG pO2 ABG pO2 ABG HCO3 ABG O2 Saturation ABG Base Excess ABG Hemoglobin 9.5 L ABG Oxyhemoglobin ABG Sodium 135.7 L ABG Potassium ABG Chloride ABG Glucose 152 H VBG pH Oxyhemoglobin Carboxyhemoglobin Sodium Potassium Chloride Carbon Dioxide BUN Creatinine Glucose POC Glucose 142 H 130 H Lactic Acid Calcium Phosphorus Magnesium Total Bilirubin AST ALT Ammonia Lactate Dehydrogenase Total Creatine Kinase CK-MB (CK-2) Troponin T NT-Pro-B Natriuret Pep Total Protein Albumin Triglycerides TSH Arterial Blood Glucose 152 H Arterial Blood Ionized Calcium 4.3 L Urine pH Urine WBC (Auto) Urine Creatinine 11/04/20 11/05/20 11/05/20 23:19 03:30 03:30 WBC RBC 3.02 L Hgb 9.1 L Hct 26.7 L RDW Lymph % (Auto) [place] % (Auto) Eos % (Auto) Lymph # (Auto) [place] # (Auto) Eos # (Auto) Seg Neutrophils % Lymphocytes % (Manual) Monocytes % (Manual) Seg Neutrophils # Seg Neutrophils # Man Lymphocytes # (Manual) Monocytes # (Manual) D-Dimer Heparin Anti-Xa Level ABG pH POC ABG pCO2 POC ABG pO2 ABG pO2 ABG HCO3 ABG O2 Saturation ABG Base Excess ABG Hemoglobin ABG Oxyhemoglobin ABG Sodium ABG Potassium ABG Chloride ABG Glucose VBG pH Oxyhemoglobin Carboxyhemoglobin Sodium Potassium Chloride 93.6 L Carbon Dioxide 40 H BUN 24 H Creatinine Glucose 121 H POC Glucose 126 H Lactic Acid Calcium Phosphorus Magnesium Total Bilirubin AST ALT Ammonia Lactate Dehydrogenase Total Creatine Kinase CK-MB (CK-2) Troponin T NT-Pro-B Natriuret Pep Total Protein Albumin Triglycerides TSH Arterial Blood Glucose Arterial Blood Ionized Calcium Urine pH Urine WBC (Auto) Urine Creatinine 11/05/20 11/05/20 11/05/20 05:24 11:37 17:37 WBC RBC Hgb Hct RDW Lymph % (Auto) [place] % (Auto) Eos % (Auto) Lymph # (Auto) [place] # (Auto) Eos # (Auto) Seg Neutrophils % Lymphocytes % (Manual) Monocytes % (Manual) Seg Neutrophils # Seg Neutrophils # Man Lymphocytes # (Manual) Monocytes # (Manual) D-Dimer Heparin Anti-Xa Level ABG pH POC ABG pCO2 POC ABG pO2 ABG pO2 ABG HCO3 ABG O2 Saturation ABG Base Excess ABG Hemoglobin ABG Oxyhemoglobin ABG Sodium ABG Potassium ABG Chloride ABG Glucose VBG pH Oxyhemoglobin Carboxyhemoglobin Sodium Potassium Chloride Carbon Dioxide BUN Creatinine Glucose POC Glucose 124 H 125 H 153 H Lactic Acid Calcium Phosphorus Magnesium Total Bilirubin AST ALT Ammonia Lactate Dehydrogenase Total Creatine Kinase CK-MB (CK-2) Troponin T NT-Pro-B Natriuret Pep Total Protein Albumin Triglycerides TSH Arterial Blood Glucose Arterial Blood Ionized Calcium Urine pH Urine WBC (Auto) Urine Creatinine 11/05/20 11/06/20 11/06/20 23:20 05:24 12:17 WBC RBC Hgb Hct RDW Lymph % (Auto) [place] % (Auto) Eos % (Auto) Lymph # (Auto) [place] # (Auto) Eos # (Auto) Seg Neutrophils % Lymphocytes % (Manual) Monocytes % (Manual) Seg Neutrophils # Seg Neutrophils # Man Lymphocytes # (Manual) Monocytes # (Manual) D-Dimer Heparin Anti-Xa Level ABG pH POC ABG pCO2 POC ABG pO2 ABG pO2 ABG HCO3 ABG O2 Saturation ABG Base Excess ABG Hemoglobin ABG Oxyhemoglobin ABG Sodium ABG Potassium ABG Chloride ABG Glucose VBG pH Oxyhemoglobin Carboxyhemoglobin Sodium Potassium Chloride Carbon Dioxide BUN Creatinine Glucose POC Glucose 133 H 143 H 139 H Lactic Acid Calcium Phosphorus Magnesium Total Bilirubin AST ALT Ammonia Lactate Dehydrogenase Total Creatine Kinase CK-MB (CK-2) Troponin T NT-Pro-B Natriuret Pep Total Protein Albumin Triglycerides TSH Arterial Blood Glucose Arterial Blood Ionized Calcium Urine pH Urine WBC (Auto) Urine Creatinine 11/06/20 11/06/20 11/07/20 17:38 23:26 04:50 WBC RBC 3.24 L Hgb 9.6 L Hct 29.0 L RDW Lymph % (Auto) [place] % (Auto) 10.3 H Eos % (Auto) 6.9 H Lymph # (Auto) [place] # (Auto) Eos # (Auto) 0.5 H Seg Neutrophils % Lymphocytes % (Manual) Monocytes % (Manual) Seg Neutrophils # Seg Neutrophils # Man Lymphocytes # (Manual) Monocytes # (Manual) D-Dimer Heparin Anti-Xa Level ABG pH POC ABG pCO2 POC ABG pO2 ABG pO2 ABG HCO3 ABG O2 Saturation ABG Base Excess ABG Hemoglobin ABG Oxyhemoglobin ABG Sodium ABG Potassium ABG Chloride ABG Glucose VBG pH Oxyhemoglobin Carboxyhemoglobin Sodium Potassium Chloride Carbon Dioxide BUN Creatinine Glucose POC Glucose 139 H 117 H Lactic Acid Calcium Phosphorus Magnesium Total Bilirubin AST ALT Ammonia Lactate Dehydrogenase Total Creatine Kinase CK-MB (CK-2) Troponin T NT-Pro-B Natriuret Pep Total Protein Albumin Triglycerides TSH Arterial Blood Glucose Arterial Blood Ionized Calcium Urine pH Urine WBC (Auto) Urine Creatinine 11/07/20 11/07/20 11/07/20 04:50 05:10 12:22 WBC RBC Hgb Hct RDW Lymph % (Auto) [place] % (Auto) Eos % (Auto) Lymph # (Auto) [place] # (Auto) Eos # (Auto) Seg Neutrophils % Lymphocytes % (Manual) Monocytes % (Manual) Seg Neutrophils # Seg Neutrophils # Man Lymphocytes # (Manual) Monocytes # (Manual) D-Dimer Heparin Anti-Xa Level ABG pH POC ABG pCO2 POC ABG pO2 ABG pO2 ABG HCO3 ABG O2 Saturation ABG Base Excess ABG Hemoglobin ABG Oxyhemoglobin ABG Sodium ABG Potassium ABG Chloride ABG Glucose VBG pH Oxyhemoglobin Carboxyhemoglobin Sodium Potassium Chloride 97.2 L Carbon Dioxide 36 H BUN 25 H Creatinine Glucose 130 H POC Glucose 115 H 118 H Lactic Acid Calcium Phosphorus Magnesium Total Bilirubin AST ALT Ammonia Lactate Dehydrogenase Total Creatine Kinase CK-MB (CK-2) Troponin T NT-Pro-B Natriuret Pep Total Protein Albumin Triglycerides TSH Arterial Blood Glucose Arterial Blood Ionized Calcium Urine pH Urine WBC (Auto) Urine Creatinine 11/07/20 11/07/20 11/08/20 17:46 23:53 07:16 WBC RBC Hgb Hct RDW Lymph % (Auto) [place] % (Auto) Eos % (Auto) Lymph # (Auto) [place] # (Auto) Eos # (Auto) Seg Neutrophils % Lymphocytes % (Manual) Monocytes % (Manual) Seg Neutrophils # Seg Neutrophils # Man Lymphocytes # (Manual) Monocytes # (Manual) D-Dimer Heparin Anti-Xa Level ABG pH POC ABG pCO2 POC ABG pO2 ABG pO2 ABG HCO3 ABG O2 Saturation ABG Base Excess ABG Hemoglobin ABG Oxyhemoglobin ABG Sodium ABG Potassium ABG Chloride ABG Glucose VBG pH Oxyhemoglobin Carboxyhemoglobin Sodium Potassium Chloride Carbon Dioxide BUN Creatinine Glucose POC Glucose 150 H 141 H 134 H Lactic Acid Calcium Phosphorus Magnesium Total Bilirubin AST ALT Ammonia Lactate Dehydrogenase Total Creatine Kinase CK-MB (CK-2) Troponin T NT-Pro-B Natriuret Pep Total Protein Albumin Triglycerides TSH Arterial Blood Glucose Arterial Blood Ionized Calcium Urine pH Urine WBC (Auto) Urine Creatinine 11/08/20 11/08/20 11/08/20 11:35 17:59 23:50 WBC RBC Hgb Hct RDW Lymph % (Auto) [place] % (Auto) Eos % (Auto) Lymph # (Auto) [place] # (Auto) Eos # (Auto) Seg Neutrophils % Lymphocytes % (Manual) Monocytes % (Manual) Seg Neutrophils # Seg Neutrophils # Man Lymphocytes # (Manual) Monocytes # (Manual) D-Dimer Heparin Anti-Xa Level ABG pH POC ABG pCO2 POC ABG pO2 ABG pO2 ABG HCO3 ABG O2 Saturation ABG Base Excess ABG Hemoglobin ABG Oxyhemoglobin ABG Sodium ABG Potassium ABG Chloride ABG Glucose VBG pH Oxyhemoglobin Carboxyhemoglobin Sodium Potassium Chloride Carbon Dioxide BUN Creatinine Glucose POC Glucose 148 H 118 H 131 H Lactic Acid Calcium Phosphorus Magnesium Total Bilirubin AST ALT Ammonia Lactate Dehydrogenase Total Creatine Kinase CK-MB (CK-2) Troponin T NT-Pro-B Natriuret Pep Total Protein Albumin Triglycerides TSH Arterial Blood Glucose Arterial Blood Ionized Calcium Urine pH Urine WBC (Auto) Urine Creatinine 11/09/20 11/09/20 11/09/20 12:07 17:00 23:45 WBC RBC Hgb Hct RDW Lymph % (Auto) [place] % (Auto) Eos % (Auto) Lymph # (Auto) [place] # (Auto) Eos # (Auto) Seg Neutrophils % Lymphocytes % (Manual) Monocytes % (Manual) Seg Neutrophils # Seg Neutrophils # Man Lymphocytes # (Manual) Monocytes # (Manual) D-Dimer Heparin Anti-Xa Level ABG pH POC ABG pCO2 POC ABG pO2 ABG pO2 ABG HCO3 ABG O2 Saturation ABG Base Excess ABG Hemoglobin ABG Oxyhemoglobin ABG Sodium ABG Potassium ABG Chloride ABG Glucose VBG pH Oxyhemoglobin Carboxyhemoglobin Sodium Potassium Chloride Carbon Dioxide BUN Creatinine Glucose POC Glucose 133 H 126 H 129 H Lactic Acid Calcium Phosphorus Magnesium Total Bilirubin AST ALT Ammonia Lactate Dehydrogenase Total Creatine Kinase CK-MB (CK-2) Troponin T NT-Pro-B Natriuret Pep Total Protein Albumin Triglycerides TSH Arterial Blood Glucose Arterial Blood Ionized Calcium Urine pH Urine WBC (Auto) Urine Creatinine 11/10/20 11/10/20 11/10/20 05:43 11:47 17:56 WBC RBC Hgb Hct RDW Lymph % (Auto) [place] % (Auto) Eos % (Auto) Lymph # (Auto) [place] # (Auto) Eos # (Auto) Seg Neutrophils % Lymphocytes % (Manual) Monocytes % (Manual) Seg Neutrophils # Seg Neutrophils # Man Lymphocytes # (Manual) Monocytes # (Manual) D-Dimer Heparin Anti-Xa Level ABG pH POC ABG pCO2 POC ABG pO2 ABG pO2 ABG HCO3 ABG O2 Saturation ABG Base Excess ABG Hemoglobin ABG Oxyhemoglobin ABG Sodium ABG Potassium ABG Chloride ABG Glucose VBG pH Oxyhemoglobin Carboxyhemoglobin Sodium Potassium Chloride Carbon Dioxide BUN Creatinine Glucose POC Glucose 111 H 136 H 110 H Lactic Acid Calcium Phosphorus Magnesium Total Bilirubin AST ALT Ammonia Lactate Dehydrogenase Total Creatine Kinase CK-MB (CK-2) Troponin T NT-Pro-B Natriuret Pep Total Protein Albumin Triglycerides TSH Arterial Blood Glucose Arterial Blood Ionized Calcium Urine pH Urine WBC (Auto) Urine Creatinine 11/10/20 11/11/20 11/11/20 23:34 03:11 05:22 WBC RBC Hgb Hct RDW Lymph % (Auto) [place] % (Auto) Eos % (Auto) Lymph # (Auto) [place] # (Auto) Eos # (Auto) Seg Neutrophils % Lymphocytes % (Manual) Monocytes % (Manual) Seg Neutrophils # Seg Neutrophils # Man Lymphocytes # (Manual) Monocytes # (Manual) D-Dimer Heparin Anti-Xa Level ABG pH POC ABG pCO2 64.5 H POC ABG pO2 ABG pO2 ABG HCO3 ABG O2 Saturation ABG Base Excess ABG Hemoglobin 9.7 L ABG Oxyhemoglobin ABG Sodium ABG Potassium 5.0 H ABG Chloride ABG Glucose 148 H VBG pH Oxyhemoglobin Carboxyhemoglobin Sodium Potassium Chloride Carbon Dioxide BUN Creatinine Glucose POC Glucose 134 H 132 H Lactic Acid Calcium Phosphorus Magnesium Total Bilirubin AST ALT Ammonia Lactate Dehydrogenase Total Creatine Kinase CK-MB (CK-2) Troponin T NT-Pro-B Natriuret Pep Total Protein Albumin Triglycerides TSH Arterial Blood Glucose 148 H Arterial Blood Ionized Calcium Urine pH Urine WBC (Auto) Urine Creatinine 11/11/20 11/11/20 11/11/20 08:38 11:00 12:01 WBC RBC 2.79 L Hgb 8.4 L Hct 25.4 L RDW Lymph % (Auto) [place] % (Auto) Eos % (Auto) Lymph # (Auto) [place] # (Auto) Eos # (Auto) Seg Neutrophils % Lymphocytes % (Manual) Monocytes % (Manual) Seg Neutrophils # Seg Neutrophils # Man Lymphocytes # (Manual) Monocytes # (Manual) D-Dimer Heparin Anti-Xa Level ABG pH POC ABG pCO2 POC ABG pO2 ABG pO2 ABG HCO3 ABG O2 Saturation ABG Base Excess ABG Hemoglobin ABG Oxyhemoglobin ABG Sodium ABG Potassium ABG Chloride ABG Glucose VBG pH Oxyhemoglobin Carboxyhemoglobin Sodium 136 L Potassium Chloride 97.6 L Carbon Dioxide 35 H BUN 26 H Creatinine Glucose 133 H POC Glucose 142 H Lactic Acid Calcium 8.0 L Phosphorus Magnesium Total Bilirubin AST ALT Ammonia Lactate Dehydrogenase Total Creatine Kinase CK-MB (CK-2) Troponin T NT-Pro-B Natriuret Pep Total Protein Albumin Triglycerides TSH Arterial Blood Glucose Arterial Blood Ionized Calcium Urine pH Urine WBC (Auto) Urine Creatinine 11/11/20 11/12/20 11/12/20 23:12 05:31 07:41 WBC RBC Hgb Hct RDW Lymph % (Auto) [place] % (Auto) Eos % (Auto) Lymph # (Auto) [place] # (Auto) Eos # (Auto) Seg Neutrophils % Lymphocytes % (Manual) Monocytes % (Manual) Seg Neutrophils # Seg Neutrophils # Man Lymphocytes # (Manual) Monocytes # (Manual) D-Dimer Heparin Anti-Xa Level ABG pH POC ABG pCO2 POC ABG pO2 ABG pO2 ABG HCO3 ABG O2 Saturation ABG Base Excess ABG Hemoglobin ABG Oxyhemoglobin ABG Sodium ABG Potassium ABG Chloride ABG Glucose VBG pH Oxyhemoglobin Carboxyhemoglobin Sodium Potassium Chloride Carbon Dioxide BUN Creatinine Glucose POC Glucose 127 H 117 H 137 H Lactic Acid Calcium Phosphorus Magnesium Total Bilirubin AST ALT Ammonia Lactate Dehydrogenase Total Creatine Kinase CK-MB (CK-2) Troponin T NT-Pro-B Natriuret Pep Total Protein Albumin Triglycerides TSH Arterial Blood Glucose Arterial Blood Ionized Calcium Urine pH Urine WBC (Auto) Urine Creatinine 11/12/20 11:26 WBC RBC Hgb Hct RDW Lymph % (Auto) [place] % (Auto) Eos % (Auto) Lymph # (Auto) [place] # (Auto) Eos # (Auto) Seg Neutrophils % Lymphocytes % (Manual) Monocytes % (Manual) Seg Neutrophils # Seg Neutrophils # Man Lymphocytes # (Manual) Monocytes # (Manual) D-Dimer Heparin Anti-Xa Level ABG pH POC ABG pCO2 POC ABG pO2 ABG pO2 ABG HCO3 ABG O2 Saturation ABG Base Excess ABG Hemoglobin ABG Oxyhemoglobin ABG Sodium ABG Potassium ABG Chloride ABG Glucose VBG pH Oxyhemoglobin Carboxyhemoglobin Sodium Potassium Chloride Carbon Dioxide BUN Creatinine Glucose POC Glucose 130 H Lactic Acid Calcium Phosphorus Magnesium Total Bilirubin AST ALT Ammonia Lactate Dehydrogenase Total Creatine Kinase CK-MB (CK-2) Troponin T NT-Pro-B Natriuret Pep Total Protein Albumin Triglycerides TSH Arterial Blood Glucose Arterial Blood Ionized Calcium Urine pH Urine WBC (Auto) Urine Creatinine Allied health notes reviewed: nursing
--- NOTE | 2020-11-12 19:01 | XRay Report ---
CHEST 1 VIEW INDICATION: aspiration COMPARISON: 11/04/2020 FINDINGS: Support devices: Unchanged. Heart: Stable. Lungs/Pleura: Mild, diffuse pulmonary disease, more suggestive of pulmonary edema rather than focal a spiration. IMPRESSION: 1. Mild, diffuse disease, suggesting pulmonary edema. Signer Name: Babatunde Ortega MD Signed: 11/12/2020 6:56 PM Workstation Name: [id number]
[2020-11-12] MEDS: QUEtiapine 200 MG TAB PO SCH (23:39)
[2020-11-13] MEDS: HYDROmorphone 1 MG/1 ML INJ IV PRN ×2 (06:10→16:24)
[2020-11-13] MEDS: LORazepam 2 MG/ML VIAL IV PRN ×2 (06:10→21:16)
[2020-11-13] MEDS: GLYCOPYRROLATE 1 MG TAB PO SCH ×3 (06:13→21:12)
[2020-11-13] MEDS: hydrALAZINE 100 MG TAB PO SCH ×3 (06:13→21:14)
--- NOTE | 2020-11-13 08:13 | Progress Note ---
Assessment and Plan Assessment and plan: This is a 55-year-old male with hypertension, asthma, obesity in the emergency by presented to the emergency department on 10/10 after receiving a Covid vaccine being found unresponsive in his car in the emergency room bay with no pulse and ACLS protocol was initiated from his car to emergency room #21 where it was continued. Patient was intubated after ROSC was achieved and a central line was placed and the patient was initiated on pressors. In the emergency room patient seems to have seizure-like activity and then collapsed and was unresponsive with no palpable pulse and ACLS was again initiated patient with achievement of ROSC. Patient again coded with ACLS protocol in the CT room. Upon arrival to the ICU patient again coded and ROSC was achieved and he was placed on epinephrine, Lasix, heparin and sodium bicarbonate drip and sedated with propofol. An NG tube was placed, A-line was placed. Patient was admitted to the hospitalist service with consult to CCM, nephrology, infectious disease and cardiology. 10/11: Patient COVID-19 PCR is pending and he remains on mechanical ventilation, examination on assist control 400/30/12/0.95. Patient is scheduled for an echocardiogram and we will obtain bilateral lower extremity Doppler ultrasound given elevated D-dimer. Patient was supposed to have a CTA chest when he coded yesterday. We will begin trickle feeding. This morning patient was on a heparin drip and was noted to have bloody drainage from his NG tube. Heparin drip was discontinued. 10/12: Patient remains on propofol and Lasix drip at the time my examination and he is on assist control 400/25/12/0.60. Patient is hypokalemic this morning which was repleted. Nephrology discontinued Lasix drip and Diamox. Patient is hypertensive and has been started on hydralazine and beta-shital IV. He has been titrated off his vasopressors since yesterday. Vancomycin discontinued. Patient is currently on cefepime and azithromycin. 10/13: Sedation vacation attempted today and patient was not responsive to verbal or painful stimuli, does not track or focus or follow commands. This morning the patient has some respiratory alkalosis on ABG, hypernatremia and metabolic luis fernando losis on BMP. His kidney functions has improved slightly. Patient still has leukocytosis and infectious disease was like to continue antibiotic therapy. GI evaluated the patient yesterday and started the patient on PPI does not plan to scope at this time. At the time my examination patient assist-control 400/20/12/0.40 and sedated on propofol at 20. /: GI has recommended a CT abdomen since there is increased output from OG tube and an MRI brain without contrast has been ordered per neurology recommendations. EEG is pending and the patient has been started on Keppra per neurology.. Nutrition has been consulted for initiation of parenteral nutrition. Patient remains sedated with propofol and his hypernatremia, leukocytosis, acute kidney injury and metabolic alkalosis is improving. Patient has hypokalemia today which was repleted. At the time of my examination patient was on assist control 400/14/10/0.40 and CCM has dropped his rate to 12 and PEEP to 8. We have labs ordered for a.m. He was given a clonidine patch given persistent hypertension and he remains on D5 water per nephrology. 10/15: This morning patient was started to have a low-grade fever and he will continue antibiotic therapy per infectious disease. He will remove Tuttle catheter today and place a condom cath. Patient's renal function is worsening with a BUN/creatinine of 57/2.4 today and he has hyperphosphatemia at 5.2. This morning the time my examination patient is sedated on fentanyl and has TPN i nfusing. He is on assist control 400/12/8/0.35. Per GI we will start trial of tube feedings initiation has been reconsulted for orders. 10/18: Patient was febrile overnight and infectious disease has recultured (blood/sputum/right nostril culture) and sent in urinalysis. Cefepime was extended due to high fever and was started on vancomycin. Tube feeding is at goal and we will discontinue his parenteral nutrition. Patient is unable to obtain his MRI due to increased hypoxia and nasal secretions. He will be started on CPAP trials today. This time I examination patient was sedated on fentanyl and had PPN running at 42. His renal function tests have worsened and now has hyperchloremia. Hypernatremia has resolved. 10/19: Patient's T-max was 100.2 and he was pancultured yesterday, remains on antibiotic therapy and still has copious drainage from his nostrils. Patient still has leukocytosis however his/creatinine improved slightly to 3.1 from 3.3. Patient's urinalysis from yesterday shows pyuria. Patient's tracheal aspirate from yesterday grew Staph aureus. Patient is on cefepime and vancomycin. 10/20: This morning at the time my examination patient was CPAP trial of 04/19 and his T-max was 100.9. Patient sedated on fentanyl at 2 just received IV push fentanyl for tachycardia. Today his creatinine is 2.8 from 3.1 yesterday. Infectious disease has stopped cefepime and vancomycin and started linezolid and MRSA PCR is pending. Today removed his NG tube and replaced it with OG tube. We will keep the patient normal saline at 75 mL's per hour for 3 L. Patient developed A. fib/a flutter overnight and cardiology has increased his Lopressor and IV amiodarone. We requested neurology evaluation today. 10/21: Cardiology we will increase Lopressor to 3 times daily and discontinue his amiodarone drip. Infectious disease would like a sinus CT when feasible however patient did have a moment of desatting earlier this week when we attempted MRI brain. And again yesterday when we attempted a "trial run" with positioning at bedside Patient is on linezolid for 10 days per ID. 10/22/20; patient was seen and evaluated this morning, patient had low-grade fever overnight. Patient is on Lopressor per cardiology recommendation. Patient did not follow commands, no improvement in mental status. Evaluated by neurology yesterday and neurology once MRI or CAT scan but cannot be done because patient desats when he lies flat. Patient is on linezolid per ID recommendation. Continue NG tube feeding. Continue with Keppra. Patient is on assist control with PEEP of 6. Management plan was discussed with his yesterday. 10/23/2020; patient is on Zyvox for positive MRSA from tracheal aspirate and nasal secretion culture. Patient's mentation did not improve and does not follow commands. He was reevaluated by neurology and recommend MRI once patient is able to tolerate. MRI could not be done, CT scan could not be done because the patient could not lie flat. Clinically patient looks like she has anoxic encephalopathy. Patient is on NG tube feeding and on mechanical ventilation. Patient is on Keppra. Management plan was discussed with his . 10/24: This morning the patient is on AC TV 400,R 16, Peep 6 and FiO2 of 30% and sedated on 1mcg of Fentayl. He is hypernatremic and his kidney function tests have slightly improved. RN will attempt to obtain MRI Brain today since the patient was able to tolerate a "trial run" of being flat. [facility] plans to resume CPAP trials once MRI obtained. 10/25: This morning the time of examination patient was on assist control tidal volume 400, rate 16, PEEP 6, FiO2 30% and he is currently on CPAP. His MRI brain finding is consistent with status epilepticus or anoxic brain injury. Patient is EEG pending. No acute overnight events reported. 10/26: Patient has been on a CPAP trial 14/6 which she has been tolerating. Surgery was consulted for trach/PEG. Patient's hypernatremia and hyperchloremia slightly better as well as his kidney functions. He has received cardiac clearance for his trach and PEG. No acute events reported overnight. 10/27: At the time my examination patient was on CPAP trial 15/6 and 30% FiO2. Patient's electrolyte abnormalities were improving and sources kidney function. His T-max overnight was 99.3 and he remains on linezolid. No acute events reported overnight. 10/28: Yesterday patient had a trach and PEG placed. Patient remains n.p.o. as he has not been cleared by surgery to resume p.o. intake. Today he has slight leukocytosis which is likely reactive, hyponatremia, metabolic alkalosis however his kidney function continues to improve. No acute events overnight. 10/29: Plan to start tube feeding today, patient remains on mechanical ventilation with trach tube. Remains comatose without any change in mental status. Called and updated. 10/30: Vitals stable, patient remains on trach tube with ventilator. Tolerating tube feeding, otherwise clinically unchanged. Continue to provide supportive care and wean off from vent as tolerated. 10/31: No acute events reported overnight. Patient is CPAP at the time my examination however he will be tried on trach collar and we will obtain an ABG within 2 hours. 11/01. Patient is on a trach collar at 35% FiO2, he was reported, patient received Lasix and will obtain an ABG at 2100. dr. Uribe updated his and his mother is at bedside visiting him. 11/02. Patient was rested on assist control due to "tube feedings" endotracheal tube however CXR looks mild atelectasis rather than pneumonia. [facility] has given the patient another dose of Lasix and will obtain a CXR in the a.m. Patient remains with low-grade fever and we will resume daily SBT as tolerated. We will obtain a.m. labs and resume tube feedings. 11/03: Overnight the patient was rested on assist control and this afternoon he received CPAP trials. Patient's CXR looks pulmonary edema and he received additional 20 mg of Lasix today and tomorrow. Dr. Uribe updated the patient's family via phone today and they do not wish to change his code status. Patient's Robinul and scopolamine was decreased. 11/04: Patient was started on Mucomyst due to thick secretion, will continue gentle diuresis and again began T-piece trials. Pa this time my examination he was on CPAP trial 10 and was rested overnight, assist control. According to documentation patient rested on CPAP trial yesterday for approximately 4-1/2 hours. No acute events reported overnight. 11/05 patient improved with Mucomyst. Attempted weaning to begin T-piece trial. Physical examination consistent with anoxia 11/06. No new events over p.m. Secretions appear to be controlled. Updated family today. All questions and concerns answered to family satisfaction. 11/07: T-piece trials to resume. No acute events overnight. Continue current care. PT/OT consult. Transfer to [facility]. 11/09/2020. No new issues. Continue trach care, secretion control and airway management. Continue tube feedings which the patient is tolerating. Gastrostomy tube care. 11/11: Patient has remained on T-piece for 24 hours and he will be transferred to the floor. He is restarted on Mucomyst today per [facility]. 11/12: The patient was transferred to the floor yesterday and remained stable on T-piece. Continue tracheostomy care, secretion control and airway management. Continue Mucomyst. -10/24 MRI Brain shows restricted diffusion and increased T2 signal cerebral cortex which can be seen in the setting of anoxic brain injury and/ or status epilepticus. -10/26 EEG shows significant generalized slowing compatible with to moderate severe diffuse neuropathy recently compatible with anoxic/ischemic encephalopathy 11/13: Patient remains on T-piece with oxygen at 8 L/min and saturations of 97%. Continue tracheostomy care secretion control and airway management. Gastrostomy tube care. Tube feedings with aspiration precaution. History Interval history: No new issues overnight. Hospitalist Physical - Constitutional Vitals: Temp Pulse Resp BP Pulse Ox 99.2 F 80 28 H 149/80 99 11/13/20 03:58 11/13/20 03:58 11/13/20 06:10 11/13/20 03:58 11/13/20 03:58 General appearance: Present: no acute distress, other (Remains intubated ) - EENT Eyes: Present: PERRL, EOM intact ENT: hearing intact, clear oral mucosa, dentition normal - Neck Neck: Present: supple, normal ROM - Respiratory Respiratory effort: normal Respiratory: bilateral: CTA - Cardiovascular Rhythm: regular Heart Sounds: Present: S1 & S2. Absent: gallop, rub - Extremities Extremities: no ischemia, No edema, Full ROM - Abdominal General gastrointestinal: soft, non-tender, non-distended, normal bowel sounds - Integumentary Integumentary: Present: clear, warm, dry - Neurologic Neurologic: CNII-XII intact, moves all extremities HEART Score - HEART Score EKG: Non-specific Age: 45-65 Troponin: Troponin T 0.125 ng/mL (0.00-0.029) H* D 10/12/20 04:00 Troponin: 1-3x normal limit - Critical Actions Critical Actions: 4-6 pts:12-16.6% risk of adverse cardiac event. Should be admitted Results - Labs CBC & Chem 7: 11/11/20 11:00 11/11/20 08:38 Labs: Laboratory Last Values WBC 5.5 K/mm3 (4.5-11.0) 11/11/20 11:00 RBC 2.79 M/mm3 (3.65-5.03) L 11/11/20 11:00 Hgb 8.4 gm/dl (11.8-15.2) L 11/11/20 11:00 Hct 25.4 % (35.5-45.6) L 11/11/20 11:00 MCV 91 fl (84-94) 11/11/20 11:00 MCH 30 pg (28-32) 11/11/20 11:00 MCHC 33 % (32-34) 11/11/20 11:00 RDW 15.1 % (13.2-15.2) 11/11/20 11:00 Plt Count 239 K/mm3 (140-440) 11/11/20 11:00 Lymph % (Auto) 19.1 % (13.4-35.0) 11/07/20 04:50 [place] % (Auto) 10.3 % (0.0-7.3) H 11/07/20 04:50 Eos % (Auto) 6.9 % (0.0-4.3) H 11/07/20 04:50 Baso % (Auto) 0.6 % (0.0-1.8) 11/07/20 04:50 Lymph # (Auto) 1.5 K/mm3 (1.2-5.4) 11/07/20 04:50 [place] # (Auto) 0.8 K/mm3 (0.0-0.8) 11/07/20 04:50 Eos # (Auto) 0.5 K/mm3 (0.0-0.4) H 11/07/20 04:50 Baso # (Auto) 0.0 K/mm3 (0.0-0.1) 11/07/20 04:50 Add Manual Diff Complete 10/10/20 18:18 Total Counted 100 10/10/20 18:18 Seg Neutrophils % 63.1 % (40.0-70.0) 11/07/20 04:50 Seg Neuts % (Manual) 60.0 % (40.0-70.0) 10/10/20 18:18 Band Neutrophils % 27.0 % 10/10/20 18:18 Lymphocytes % (Manual) 4.0 % (13.4-35.0) L 10/10/20 18:18 Monocytes % (Manual) 9.0 % (0.0-7.3) H 10/10/20 18:18 Eosinophils % (Manual) 4.0 % (0.0-4.3) 10/10/20 10:48 Metamyelocytes % 1.0 % 10/10/20 10:48 Nucleated RBC % Not Reportable 10/10/20 18:18 Seg Neutrophils # 4.8 K/mm3 (1.8-7.7) 11/07/20 04:50 Seg Neutrophils # Man 13.8 K/mm3 (1.8-7.7) H 10/10/20 18:18 Band Neutrophils # 6.2 K/mm3 10/10/20 18:18 Lymphocytes # (Manual) 0.9 K/mm3 (1.2-5.4) L 10/10/20 18:18 Abs React Lymphs (Man) 0.0 K/mm3 10/10/20 18:18 Monocytes # (Manual) 2.1 K/mm3 (0.0-0.8) H 10/10/20 18:18 Eosinophils # (Manual) 0.0 K/mm3 (0.0-0.4) 10/10/20 18:18 Basophils # (Manual) 0.0 K/mm3 (0.0-0.1) 10/10/20 18:18 Metamyelocytes # 0.0 K/mm3 10/10/20 18:18 Myelocytes # 0.0 K/mm3 10/10/20 18:18 Promyelocytes # 0.0 K/mm3 10/10/20 18:18 Blast Cells # 0.0 K/mm3 10/10/20 18:18 WBC Morphology Not Reportable 10/10/20 18:18 Hypersegmented Neuts Not Reportable 10/10/20 18:18 Hyposegmented Neuts Not Reportable 10/10/20 18:18 Hypogranular Neuts Not Reportable 10/10/20 18:18 Smudge Cells Not Reportable 10/10/20 18:18 Toxic Granulation Not Reportable 10/10/20 18:18 Toxic Vacuolation Not Reportable 10/10/20 18:18 Dohle Bodies Not Reportable 10/10/20 18:18 Pelger-Huet Anomaly Not Reportable 10/10/20 18:18 Dionicio Rods Not Reportable 10/10/20 18:18 Platelet Estimate Consistent w auto 10/10/20 18:18 Clumped Platelets Not Reportable 10/10/20 18:18 Plt Clumps, EDTA Not Reportable 10/10/20 18:18 Large Platelets Rare 10/10/20 18:18 Giant Platelets Rare 10/10/20 18:18 Platelet Satelliting Not Reportable 10/10/20 18:18 Plt Morphology Comment Not Reportable 10/10/20 18:18 RBC Morphology Not Reportable 10/10/20 18:18 Dimorphic RBCs Not Reportable 10/10/20 18:18 Polychromasia Not Reportable 10/10/20 18:18 Hypochromasia Not Reportable 10/10/20 18:18 Poikilocytosis Not Reportable 10/10/20 18:18 Anisocytosis Not Reportable 10/10/20 18:18 Microcytosis Not Reportable 10/10/20 18:18 Macrocytosis Not Reportable 10/10/20 18:18 Spherocytes Not Reportable 10/10/20 18:18 Pappenheimer Bodies Not Reportable 10/10/20 18:18 Sickle Cells Not Reportable 10/10/20 18:18 Target Cells Not Reportable 10/10/20 18:18 Tear Drop Cells Not Reportable 10/10/20 18:18 Ovalocytes Not Reportable 10/10/20 18:18 Helmet Cells Not Reportable 10/10/20 18:18 Medley-Dyer Bodies Not Reportable 10/10/20 18:18 [place] Rings Not Reportable 10/10/20 18:18 [place] Cells Not Reportable 10/10/20 18:18 Bite Cells Not Reportable 10/10/20 18:18 Crenated Cell Not Reportable 10/10/20 18:18 Elliptocytes Not Reportable 10/10/20 18:18 Acanthocytes (Spur) Not Reportable 10/10/20 18:18 Rouleaux Not Reportable 10/10/20 18:18 Hemoglobin C Crystals Not Reportable 10/10/20 18:18 Schistocytes Not Reportable 10/10/20 18:18 Malaria parasites Not Reportable 10/10/20 18:18 Mauricio Bodies Not Reportable 10/10/20 18:18 Hem Pathologist Commnt No 10/10/20 18:18 PT 13.5 Sec. (12.2-14.9) 10/28/20 07:00 INR 1.05 (0.87-1.13) 10/28/20 07:00 APTT 26.9 Sec. (24.2-36.6) 10/10/20 18:18 D-Dimer 679.5 ng/mlDDU (0-234) H 10/10/20 10:48 Heparin Anti-Xa Level 0.22 U.I./ml (0.3-0.7) L 10/11/20 08:35 ABG pH 7.388 (7.320-7.450) 11/11/20 03:11 POC ABG pCO2 64.5 mmHg (32.0-48.0) H 11/11/20 03:11 ABG pCO2 55.5 mm Hg 10/16/20 05:10 POC ABG pO2 94.0 mmHg (83-108) 11/11/20 03:11 ABG pO2 104.5 mm Hg (80.0-90.0) H 10/16/20 05:10 POC ABG HCO3 38.0 11/11/20 03:11 ABG HCO3 35.1 mmol/L (20.0-26.0) H 10/16/20 05:10 ABG O2 Saturation 97.6 (0-100) 11/11/20 03:11 ABG O2 Content 10.8 (0.0-44) 10/16/20 05:10 POC ABG Base Excess 11.2 11/11/20 03:11 ABG Base Excess 9.5 mmol/L (-2.0-3.0) H 10/16/20 05:10 ABG Hemoglobin 9.7 (12.0-17.5) L 11/11/20 03:11 ABG Oxyhemoglobin 96.7 (94-98) 11/11/20 03:11 ABG Carboxyhemoglobin 1.9 % (0.0-5.0) 10/16/20 05:10 ABG Methemoglobin 0.3 (0.0-1.5) 11/11/20 03:11 ABG Sodium 137.1 mmol/L (136.0-145.0) 11/11/20 03:11 ABG Potassium 5.0 mmol/L (3.40-4.50) H 11/11/20 03:11 ABG Chloride 98.0 mmol/L (98-107) 11/11/20 03:11 ABG Glucose 148 mg/dL (65-95) H 11/11/20 03:11 VBG pH 6.870 (7.320-7.420) L* 10/10/20 10:48 Oxyhemoglobin 95.3 % (95.0-99.0) 10/16/20 05:10 Carboxyhemoglobin 0.6 (0.5-1.5) 11/11/20 03:11 FiO2 35 % 10/16/20 05:10 FiO2 % 28.0 11/11/20 03:11 Sodium 136 mmol/L (137-145) L 11/11/20 08:38 Potassium 4.2 mmol/L (3.6-5.0) 11/11/20 08:38 Chloride 97.6 mmol/L (98-107) L 11/11/20 08:38 Carbon Dioxide 35 mmol/L (22-30) H 11/11/20 08:38 Anion Gap 8 mmol/L 11/11/20 08:38 BUN 26 mg/dL (9-20) H 11/11/20 08:38 Creatinine 0.9 mg/dL (0.8-1.3) 11/11/20 08:38 Estimated GFR > 60 ml/min 11/11/20 08:38 BUN/Creatinine Ratio 29 % 11/11/20 08:38 Glucose 133 mg/dL (75-100) H 11/11/20 08:38 POC Glucose 142 mg/dL (70-105) H 11/13/20 05:52 Hemoglobin A1c 6.0 % (4-6) 10/11/20 02:00 Lactic Acid 1.10 mmol/L (0.7-2.0) 10/13/20 04:52 Calcium 8.0 mg/dL (8.4-10.2) L 11/11/20 08:38 Phosphorus 5.20 mg/dL (2.5-4.5) H D 10/17/20 03:32 Magnesium 2.30 mg/dL (1.7-2.3) 10/17/20 03:32 Ferritin 81.4 ng/mL (30.0-300.0) 10/10/20 10:48 Total Bilirubin 1.70 mg/dL (0.1-1.2) H 10/18/20 03:27 AST 37 units/L (5-40) 10/18/20 03:27 ALT 32 units/L (7-56) 10/18/20 03:27 Alkaline Phosphatase 97 units/L (35-129) 10/18/20 03:27 Ammonia 214.0 umol/L (25-60) H 10/10/20 10:46 Lactate Dehydrogenase 386 units/L (91-180) H 10/10/20 10:48 Total Creatine Kinase 1192 units/L (55-170) H 10/10/20 18:18 CK-MB (CK-2) 21.7 ng/mL (0.0-4.0) H 10/10/20 18:18 CK-MB (CK-2) Rel Index 1.8 (0-4) 10/10/20 18:18 Troponin T 0.125 ng/mL (0.00-0.029) H* D 10/12/20 04:00 C-Reactive Protein 0.90 mg/dL (0.00-1.30) 10/10/20 10:48 NT-Pro-B Natriuret Pep 1187 pg/mL (0-900) H 10/10/20 10:46 Total Protein 6.3 g/dL (6.3-8.2) 10/18/20 03:27 Albumin 3.1 g/dL (3.9-5) L 10/18/20 03:27 Albumin/Globulin Ratio 1.0 % 10/18/20 03:27 Triglycerides 278 mg/dL (2-149) H 10/13/20 04:52 Cholesterol 138 mg/dL (50-199) 10/10/20 18:18 LDL Cholesterol Direct 76 mg/dL (50-130) 10/10/20 18:18 HDL Cholesterol 49 mg/dL (40-59) 10/10/20 18:18 Cholesterol/HDL Ratio 2.81 % 10/10/20 18:18 Procalcitonin 4.98 ng/mL (<0.15) 10/15/20 04:12 TSH 6.260 mlU/mL (0.270-4.200) H 10/10/20 10:46 Arterial Blood Glucose 148 mg/dL (65-95) H 11/11/20 03:11 Arterial Blood Ionized Calcium 4.8 mg/dL (4.6-5.3) 11/11/20 03:11 Urine Color Angelica (Yellow) 10/18/20 Unknown Urine Turbidity Cloudy (Clear) 10/18/20 Unknown Urine pH 5.0 (5.0-7.0) 10/18/20 Unknown Ur Specific [place] 1.017 (1.003-1.030) 10/18/20 Unknown Urine Protein 100 mg/dl mg/dL (Negative) 10/18/20 Unknown Urine Glucose (UA) Neg mg/dL (Negative) 10/18/20 Unknown Urine Ketones Neg mg/dL (Negative) 10/18/20 Unknown Urine Blood Lg (Negative) 10/18/20 Unknown Urine Nitrite Neg (Negative) 10/18/20 Unknown Urine Bilirubin Neg (Negative) 10/18/20 Unknown Urine Urobilinogen 4.0 mg/dL (<2.0) 10/18/20 Unknown Ur Leukocyte Esterase Neg (Negative) 10/18/20 Unknown Urine WBC (Auto) 115.0 /HPF (0.0-6.0) H 10/18/20 Unknown Urine RBC (Auto) 98.0 /HPF (0.0-6.0) 10/18/20 Unknown U Epithel Cells (Auto) 2.0 /HPF (0-13.0) 10/18/20 Unknown Urine WBC Clumps 3+ /HPF 10/18/20 Unknown Urine Mucus Few /HPF 10/11/20 13:30 Urine Eosinophils None seen (None Seen) 10/11/20 13:30 Urine Creatinine 93.7 mg/dL (0.1-20.0) H 10/19/20 13:14 Urine Sodium 25 mmol/L 10/19/20 13:14 Urine Urea Nitrogen 845 10/19/20 13:14 Nasal Screen MRSA (PCR) Positive (Negative) 10/20/20 13:30 Random Vancomycin 5.8 ug/mL (0-40.0) 10/21/20 06:30 Urine Opiates Screen Negative 10/10/20 10:50 Urine Methadone Screen Negative 10/10/20 10:50 Ur Barbiturates Screen Negative 10/10/20 10:50 Ur Phencyclidine Scrn Negative 10/10/20 10:50 Ur Amphetamines Screen Negative 10/10/20 10:50 U Benzodiazepines Scrn Negative 10/10/20 10:50 Urine Cocaine Screen Negative 10/10/20 10:50 U Marijuana (THC) Screen Positive 10/10/20 10:50 Drugs of Abuse Note Disclamer 10/10/20 10:50 Plasma/Serum Alcohol < 0.01 % (0-0.07) 10/10/20 10:48 Coronavirus (PCR) Negative (Negative) 10/11/20 Unknown Blood Type AB POSITIVE 10/10/20 10:48 Antibody Screen Negative 10/10/20 10:48 Tuttle/IV: Voiding Method Condom Catheter Active Medications - Current Medications Current Medications: Generic Name Dose Route Start Last Admin Trade Name Freq PRN Reason Stop Dose Admin Acetaminophen 650 mg 10/10/20 21:51 11/11/20 20:45 Acetaminophen 325 Mg Tab PO 650 mg Q4H PRN Administration Pain MILD(1-3)/Fever >100.5/SALVADOR Acetylcysteine 200 mg 11/11/20 16:00 11/12/20 16:03 Acetylcysteine 20% 200 Mg/1 Ml *For Inhalation Use* INHALATION 11/14/20 08:01 200 mg Q8HRT PEPITO Administration Albuterol 2.5 mg 10/11/20 13:12 11/12/20 00:24 Albuterol 2.5 Mg/3 Ml Nebu IH 2.5 mg Q6HRT PRN Administration Shortness Of Breath Amlodipine Besylate 10 mg 10/25/20 13:00 11/12/20 09:59 Amlodipine 10 Mg Tab PO 10 mg QDAY PEPITO Administration Lipase/Protease/Amylase 1 each 10/10/20 22:18 Lipase 10,500/Protease 25,000/Amylase 43,750 (Units) Dr Santana FEEDTUBE PRN PRN For Clogged Feeding Tube Clonidine HCl 0.3 mg 10/14/20 15:00 11/11/20 14:03 Clonidine Tts 0.3 Mg/24 Hr Patch TD 0.3 mg Fr PEPITO Administration Docusate Sodium 100 mg 10/16/20 22:00 11/12/20 23:40 Docusate Sodium 100 Mg/10 Ml Oral Liqd PO 100 mg BID PEPITO Administration Fentanyl 1 applic 11/09/20 18:00 11/09/20 17:45 Fentanyl 25 Mcg/Hr Patch 72hr TD 1 applic Q72H PEPITO Administration Glycopyrrolate 1 mg 11/04/20 14:00 11/13/20 06:13 Glycopyrrolate 1 Mg Tab PO 1 mg Q8HR PEPITO Administration Heparin Sodium (Porcine) 5,000 unit 10/11/20 22:00 11/12/20 21:52 Heparin 5,000 Unit/1 Ml Vial SUB-Q 5,000 unit Q12HR PEPITO Administration Hydralazine HCl 10 mg 11/02/20 08:46 11/12/20 21:51 Hydralazine 20 Mg/1 Ml Inj IV 10 mg Q6H PRN Administration Hypertension Hydralazine HCl 100 mg 11/10/20 06:00 11/13/20 06:13 Hydralazine 100 Mg Tab PO 100 mg Q8HR PEPITO Administration Hydromorphone HCl 0.5 mg 11/01/20 20:55 11/13/20 06:10 Hydromorphone 1 Mg/1 Ml Inj IV 0.5 mg Q3H PRN Administration Pain , Severe (7-10) Hydrophilic Ointment 1 applic 10/10/20 10:34 Lip Therapy Vaseline TP Q2HR PRN Dry Lips Lansoprazole 30 mg 10/24/20 10:00 11/12/20 23:39 Lansoprazole 30 Mg Solutab FEEDTUBE 30 mg BID PEPITO Administration Levetiracetam 500 mg 10/31/20 10:00 11/12/20 23:38 Levetiracetam 500 Mg/5 Ml Oral Liqd PO 500 mg BID PEPITO Administration Lorazepam 1 mg 11/04/20 19:27 11/13/20 06:10 Lorazepam 2 Mg/Ml Vial IV 1 mg Q4H PRN Administration Agitation Metoprolol Tartrate 100 mg 10/21/20 14:00 11/12/20 23:39 Metoprolol Tartrate 50 Mg Tab PO 100 mg TID PEPITO Administration Multi-Ingred Cream/Lotion/Oil/Oint 1 applic 10/10/20 10:34 Mineral Oil/Petrolatum, White Ophth Oint 3.5 Gm OU Q4HR PRN Dry Eye(s) Ondansetron HCl 4 mg 10/10/20 21:51 11/01/20 20:48 Ondansetron 4 Mg/2 Ml Inj IV 4 mg Q3H PRN Administration Nausea And Vomiting Polyethylene Glycol 17 gm 10/17/20 10:00 11/12/20 09:57 Polyethylene Glycol 3350 17 Gm Powder PO 17 gm QDAY PEPITO Administration Quetiapine Fumarate 100 mg 11/02/20 10:00 11/12/20 09:59 Quetiapine 100 Mg Tab PO 100 mg DAILY PEPITO Administration Quetiapine Fumarate 200 mg 11/07/20 22:00 11/12/20 23:39 Quetiapine 200 Mg Tab PO 200 mg QHS PEPITO Administration Quetiapine Fumarate 25 mg 11/07/20 14:00 11/12/20 09:59 Quetiapine 25 Mg Tab PO 25 mg DAILY PEPITO Administration Scopolamine 1 each 10/17/20 10:00 11/10/20 10:21 Scopolamine Transdermal Patch 72 Hr TD 1 each Q3D PEPITO Administration Simple Syrup 15 ml 10/10/20 22:18 Simple Syrup 15 Ml FEEDTUBE PRN PRN Hypoglycemia Simple Syrup 30 ml 10/10/20 22:18 Simple Syrup 15 Ml FEEDTUBE PRN PRN Hypoglycemia Sodium Bicarbonate 325 mg 10/10/20 22:18 Sodium Bicarbonate 325 Mg Tab FEEDTUBE PRN PRN For Clogged Feeding Tube Sodium Chloride 10 ml 10/10/20 22:00 11/12/20 22:31 Sodium Chloride 0.9% 10 Ml Flush Syringe IV 10 ml BID PEPITO Administration Nutrition/Malnutrition Assess - Dietary Evaluation Nutrition/Malnutrition Findings: Nutrition Notes Start: 10/11/20 08:38 Freq: Status: Active Protocol: Document 11/09/20 08:06 LP (Rec: 11/09/20 08:09 LP [email or web address]) Nutrition Notes Initial or Follow up Reassessment Current Diagnosis Acute Kidney Injury,Sepsis, Hypertension,Heart Failure, Respiratory Failure Other Pertinent Diagnosis GIB, pneu, MRSA [place], pulmonary edema Current Diet Promote at 80 ml/hr Labs/Tests Reviewed Pertinent Medications Reviewed Height 6 ft Weight 125.6 kg [place] Body Weight (kg) 80.90 BMI 37.5 Weight change and time frame Wt fluctuations expected Weight Status Morbidly Obese Subjective/Other Information Pt tolerating TF at goal rate. Percent of energy/protein needs met: 100%/74% Burn Absent Trauma Absent Difficulty In Swallowing Skin Integrity/Comment DTI to heel Current % PO Negligible Minimum of two criteria No Fluid Accumulation Mild (non-severe) #3 Nutrition Diagnosis Increased nutrient needs ( specify in comment below) Diagnosis Progress(for reassessment Continues documentation) #1 Nutrition Diagnosis Inadequate oral intake Diagnosis Progress(for reassessment Continues documentation) Is patient on ventilator? Yes Is Patient Ambulatory and/or Out of Bed No REE-([place]-St. Jeor-confined to bed) 2570.376 Kcal/Kg value to use for calculation 15 Approximate Energy Requirements Using 1884 kcal/Kg Calculation Used for Recommendations Kcal/kg Additional Notes protein needs: >162g (>2 kgIBW of dry weight) fluid needs: 1 ml/kcal or per MD Nutrition Intervention Change Diet Order: Continue Nutrition Support: Promote at 80 ml/hr flush of 50 ml q4h. Kcal 1,920 Protein (gm) 120 Fluid (mL) 1,611 Goal #1 Tolerate TF Goal #2 Meet at least 70% of protein and 100% of kcal needs via TF Anticipated Discharge Needs: TF Follow-Up By: 11/14/20 Additional Comments Follow for stable TF
[2020-11-13] MEDS: ACETYLCYSTEINE 20% 200 MG/1 ML *FOR INHALATION USE INHALATION SCH ×4 (08:59→20:24)
[2020-11-13] MEDS: amLODIPine 10 MG TAB PO SCH (09:00)
[2020-11-13] MEDS: levETIRAcetam 500 MG/5 ML ORAL LIQD PO SCH (09:00)
[2020-11-13] MEDS: QUEtiapine 25 MG TAB PO SCH (09:00)
[2020-11-13] MEDS: LANSOPRAZOLE 30 MG SOLUTAB FEEDTUBE SCH ×2 (09:00→21:15)
[2020-11-13] MEDS: QUEtiapine 100 MG TAB PO SCH (09:01)
[2020-11-13] MEDS: POLYETHYLENE GLYCOL 3350 17 GM POWDER PO SCH (09:01)
[2020-11-13] MEDS: DOCUSATE SODIUM 100 MG/10 ML ORAL LIQD PO SCH (09:01)
[2020-11-13] MEDS: METOPROLOL TARTRATE 50 MG TAB PO SCH ×3 (09:03→21:14)
[2020-11-13] MEDS: SCOPOLAMINE TRANSDERMAL PATCH 72 HR TD SCH (09:04)
[2020-11-13] MEDS: HEPARIN 5,000 UNIT/1 ML VIAL SUB-Q SCH ×2 (09:08→21:16)
[2020-11-13] MEDS: ALBUTEROL 2.5 MG/3 ML NEBU IH PRN ×3 (11:39→20:24)
[2020-11-13] MEDS: hydrALAZINE 20 MG/1 ML INJ IV PRN ×2 (15:58→21:15)
[2020-11-13] MEDS: fentaNYL 25 MCG/HR PATCH 72HR TD SCH (17:33)
[2020-11-13] MEDS: QUEtiapine 200 MG TAB PO SCH (21:12)
[2020-11-13] MEDS: ACETAMINOPHEN 325 MG TAB PO PRN (21:13)
[2020-11-14] MEDS: ACETYLCYSTEINE 20% 200 MG/1 ML *FOR INHALATION USE INHALATION SCH ×2 (01:22→09:54)
[2020-11-14] MEDS: levETIRAcetam 500 MG/5 ML ORAL LIQD PO SCH ×3 (04:24→22:20)
[2020-11-14] MEDS: DOCUSATE SODIUM 100 MG/10 ML ORAL LIQD PO SCH ×3 (04:24→22:20)
[2020-11-14] MEDS: hydrALAZINE 100 MG TAB PO SCH ×3 (05:17→22:20)
[2020-11-14] MEDS: ACETAMINOPHEN 325 MG TAB PO PRN (05:17)
[2020-11-14] MEDS: LORazepam 2 MG/ML VIAL IV PRN ×2 (05:18→22:21)
[2020-11-14] MEDS: hydrALAZINE 20 MG/1 ML INJ IV PRN ×2 (05:18→12:01)
[2020-11-14] MEDS: GLYCOPYRROLATE 1 MG TAB PO SCH ×3 (05:18→22:20)
--- NOTE | 2020-11-14 08:12 | Progress Note ---
Assessment and Plan Assessment and plan: This is a 55-year-old male with hypertension, asthma, obesity in the emergency by presented to the emergency department on 10/10 after receiving a Covid vaccine being found unresponsive in his car in the emergency room bay with no pulse and ACLS protocol was initiated from his car to emergency room #21 where it was continued. Patient was intubated after ROSC was achieved and a central line was placed and the patient was initiated on pressors. In the emergency room patient seems to have seizure-like activity and then collapsed and was unresponsive with no palpable pulse and ACLS was again initiated patient with achievement of ROSC. Patient again coded with ACLS protocol in the CT room. Upon arrival to the ICU patient again coded and ROSC was achieved and he was placed on epinephrine, Lasix, heparin and sodium bicarbonate drip and sedated with propofol. An NG tube was placed, A-line was placed. Patient was admitted to the hospitalist service with consult to CCM, nephrology, infectious disease and cardiology. 10/11: Patient COVID-19 PCR is pending and he remains on mechanical ventilation, examination on assist control 400/30/12/0.95. Patient is scheduled for an echocardiogram and we will obtain bilateral lower extremity Doppler ultrasound given elevated D-dimer. Patient was supposed to have a CTA chest when he coded yesterday. We will begin trickle feeding. This morning patient was on a heparin drip and was noted to have bloody drainage from his NG tube. Heparin drip was discontinued. 10/12: Patient remains on propofol and Lasix drip at the time my examination and he is on assist control 400/25/12/0.60. Patient is hypokalemic this morning which was repleted. Nephrology discontinued Lasix drip and Diamox. Patient is hypertensive and has been started on hydralazine and beta-shital IV. He has been titrated off his vasopressors since yesterday. Vancomycin discontinued. Patient is currently on cefepime and azithromycin. 10/13: Sedation vacation attempted today and patient was not responsive to verbal or painful stimuli, does not track or focus or follow commands. This morning the patient has some respiratory alkalosis on ABG, hypernatremia and metabolic luis fernando losis on BMP. His kidney functions has improved slightly. Patient still has leukocytosis and infectious disease was like to continue antibiotic therapy. GI evaluated the patient yesterday and started the patient on PPI does not plan to scope at this time. At the time my examination patient assist-control 400/20/12/0.40 and sedated on propofol at 20. /: GI has recommended a CT abdomen since there is increased output from OG tube and an MRI brain without contrast has been ordered per neurology recommendations. EEG is pending and the patient has been started on Keppra per neurology.. Nutrition has been consulted for initiation of parenteral nutrition. Patient remains sedated with propofol and his hypernatremia, leukocytosis, acute kidney injury and metabolic alkalosis is improving. Patient has hypokalemia today which was repleted. At the time of my examination patient was on assist control 400/14/10/0.40 and CCM has dropped his rate to 12 and PEEP to 8. We have labs ordered for a.m. He was given a clonidine patch given persistent hypertension and he remains on D5 water per nephrology. 10/15: This morning patient was started to have a low-grade fever and he will continue antibiotic therapy per infectious disease. He will remove Tuttle catheter today and place a condom cath. Patient's renal function is worsening with a BUN/creatinine of 57/2.4 today and he has hyperphosphatemia at 5.2. This morning the time my examination patient is sedated on fentanyl and has TPN i nfusing. He is on assist control 400/12/8/0.35. Per GI we will start trial of tube feedings initiation has been reconsulted for orders. 10/18: Patient was febrile overnight and infectious disease has recultured (blood/sputum/right nostril culture) and sent in urinalysis. Cefepime was extended due to high fever and was started on vancomycin. Tube feeding is at goal and we will discontinue his parenteral nutrition. Patient is unable to obtain his MRI due to increased hypoxia and nasal secretions. He will be started on CPAP trials today. This time I examination patient was sedated on fentanyl and had PPN running at 42. His renal function tests have worsened and now has hyperchloremia. Hypernatremia has resolved. 10/19: Patient's T-max was 100.2 and he was pancultured yesterday, remains on antibiotic therapy and still has copious drainage from his nostrils. Patient still has leukocytosis however his/creatinine improved slightly to 3.1 from 3.3. Patient's urinalysis from yesterday shows pyuria. Patient's tracheal aspirate from yesterday grew Staph aureus. Patient is on cefepime and vancomycin. 10/20: This morning at the time my examination patient was CPAP trial of 04/19 and his T-max was 100.9. Patient sedated on fentanyl at 2 just received IV push fentanyl for tachycardia. Today his creatinine is 2.8 from 3.1 yesterday. Infectious disease has stopped cefepime and vancomycin and started linezolid and MRSA PCR is pending. Today removed his NG tube and replaced it with OG tube. We will keep the patient normal saline at 75 mL's per hour for 3 L. Patient developed A. fib/a flutter overnight and cardiology has increased his Lopressor and IV amiodarone. We requested neurology evaluation today. 10/21: Cardiology we will increase Lopressor to 3 times daily and discontinue his amiodarone drip. Infectious disease would like a sinus CT when feasible however patient did have a moment of desatting earlier this week when we attempted MRI brain. And again yesterday when we attempted a "trial run" with positioning at bedside Patient is on linezolid for 10 days per ID. 10/22/20; patient was seen and evaluated this morning, patient had low-grade fever overnight. Patient is on Lopressor per cardiology recommendation. Patient did not follow commands, no improvement in mental status. Evaluated by neurology yesterday and neurology once MRI or CAT scan but cannot be done because patient desats when he lies flat. Patient is on linezolid per ID recommendation. Continue NG tube feeding. Continue with Keppra. Patient is on assist control with PEEP of 6. Management plan was discussed with his yesterday. 10/23/2020; patient is on Zyvox for positive MRSA from tracheal aspirate and nasal secretion culture. Patient's mentation did not improve and does not follow commands. He was reevaluated by neurology and recommend MRI once patient is able to tolerate. MRI could not be done, CT scan could not be done because the patient could not lie flat. Clinically patient looks like she has anoxic encephalopathy. Patient is on NG tube feeding and on mechanical ventilation. Patient is on Keppra. Management plan was discussed with his . 10/24: This morning the patient is on AC TV 400,R 16, Peep 6 and FiO2 of 30% and sedated on 1mcg of Fentayl. He is hypernatremic and his kidney function tests have slightly improved. RN will attempt to obtain MRI Brain today since the patient was able to tolerate a "trial run" of being flat. [facility] plans to resume CPAP trials once MRI obtained. 10/25: This morning the time of examination patient was on assist control tidal volume 400, rate 16, PEEP 6, FiO2 30% and he is currently on CPAP. His MRI brain finding is consistent with status epilepticus or anoxic brain injury. Patient is EEG pending. No acute overnight events reported. 10/26: Patient has been on a CPAP trial 14/6 which she has been tolerating. Surgery was consulted for trach/PEG. Patient's hypernatremia and hyperchloremia slightly better as well as his kidney functions. He has received cardiac clearance for his trach and PEG. No acute events reported overnight. 10/27: At the time my examination patient was on CPAP trial 15/6 and 30% FiO2. Patient's electrolyte abnormalities were improving and sources kidney function. His T-max overnight was 99.3 and he remains on linezolid. No acute events reported overnight. 10/28: Yesterday patient had a trach and PEG placed. Patient remains n.p.o. as he has not been cleared by surgery to resume p.o. intake. Today he has slight leukocytosis which is likely reactive, hyponatremia, metabolic alkalosis however his kidney function continues to improve. No acute events overnight. 10/29: Plan to start tube feeding today, patient remains on mechanical ventilation with trach tube. Remains comatose without any change in mental status. Called and updated. 10/30: Vitals stable, patient remains on trach tube with ventilator. Tolerating tube feeding, otherwise clinically unchanged. Continue to provide supportive care and wean off from vent as tolerated. 10/31: No acute events reported overnight. Patient is CPAP at the time my examination however he will be tried on trach collar and we will obtain an ABG within 2 hours. 11/01. Patient is on a trach collar at 35% FiO2, he was reported, patient received Lasix and will obtain an ABG at 2100. dr. Uribe updated his and his mother is at bedside visiting him. 11/02. Patient was rested on assist control due to "tube feedings" endotracheal tube however CXR looks mild atelectasis rather than pneumonia. [facility] has given the patient another dose of Lasix and will obtain a CXR in the a.m. Patient remains with low-grade fever and we will resume daily SBT as tolerated. We will obtain a.m. labs and resume tube feedings. 11/03: Overnight the patient was rested on assist control and this afternoon he received CPAP trials. Patient's CXR looks pulmonary edema and he received additional 20 mg of Lasix today and tomorrow. Dr. Uribe updated the patient's family via phone today and they do not wish to change his code status. Patient's Robinul and scopolamine was decreased. 11/04: Patient was started on Mucomyst due to thick secretion, will continue gentle diuresis and again began T-piece trials. Pa this time my examination he was on CPAP trial 10 and was rested overnight, assist control. According to documentation patient rested on CPAP trial yesterday for approximately 4-1/2 hours. No acute events reported overnight. 11/05 patient improved with Mucomyst. Attempted weaning to begin T-piece trial. Physical examination consistent with anoxia 11/06. No new events over p.m. Secretions appear to be controlled. Updated family today. All questions and concerns answered to family satisfaction. 11/07: T-piece trials to resume. No acute events overnight. Continue current care. PT/OT consult. Transfer to [facility]. 11/09/2020. No new issues. Continue trach care, secretion control and airway management. Continue tube feedings which the patient is tolerating. Gastrostomy tube care. 11/11: Patient has remained on T-piece for 24 hours and he will be transferred to the floor. He is restarted on Mucomyst today per [facility]. 11/12: The patient was transferred to the floor yesterday and remained stable on T-piece. Continue tracheostomy care, secretion control and airway management. Continue Mucomyst. -10/24 MRI Brain shows restricted diffusion and increased T2 signal cerebral cortex which can be seen in the setting of anoxic brain injury and/ or status epilepticus. -10/26 EEG shows significant generalized slowing compatible with to moderate severe diffuse neuropathy recently compatible with anoxic/ischemic encephalopathy 11/13: Patient remains on T-piece with oxygen at 8 L/min and saturations of 97%. Continue tracheostomy care secretion control and airway management. Gastrostomy tube care. Tube feedings with aspiration precaution. 11/14: Patient with an episode yesterday evening of tachypnea and desaturation. Also, patient noted to have distended abdomen/bladder which is likely causing re spiratory distress. Tuttle was placed for urinary retention. ABG revealed pH 7.3, PCO2 68 and PO2 of 101. Pulmonology made no changes. Patient still on T- piece at 10 L/min with FiO2 35%. Continue tracheostomy care secretion control and airway management. Gastrostomy tube care. Tube feedings with aspiration precaution. History Interval history: No new issues overnight. Hospitalist Physical - Constitutional Vitals: Temp Pulse Resp BP Pulse Ox 100.0 F H 100 H 20 193/102 97 11/14/20 05:05 11/14/20 05:18 11/14/20 05:05 11/14/20 05:18 11/14/20 05:05 General appearance: Present: no acute distress, other (Remains intubated ) - EENT Eyes: Present: PERRL, EOM intact ENT: hearing intact, clear oral mucosa, dentition normal - Neck Neck: Present: supple, normal ROM - Respiratory Respiratory effort: normal Respiratory: bilateral: CTA - Cardiovascular Rhythm: regular Heart Sounds: Present: S1 & S2. Absent: gallop, rub - Extremities Extremities: no ischemia, No edema, Full ROM - Abdominal General gastrointestinal: soft, non-tender, non-distended, normal bowel sounds - Integumentary Integumentary: Present: clear, warm, dry - Neurologic Neurologic: CNII-XII intact, moves all extremities HEART Score - HEART Score EKG: Non-specific Age: 45-65 Troponin: Troponin T 0.125 ng/mL (0.00-0.029) H* D 10/12/20 04:00 Troponin: 1-3x normal limit - Critical Actions Critical Actions: 4-6 pts:12-16.6% risk of adverse cardiac event. Should be admitted Results - Labs CBC & Chem 7: 11/11/20 11:00 11/11/20 08:38 Labs: Laboratory Last Values WBC 5.5 K/mm3 (4.5-11.0) 11/11/20 11:00 RBC 2.79 M/mm3 (3.65-5.03) L 11/11/20 11:00 Hgb 8.4 gm/dl (11.8-15.2) L 11/11/20 11:00 Hct 25.4 % (35.5-45.6) L 11/11/20 11:00 MCV 91 fl (84-94) 11/11/20 11:00 MCH 30 pg (28-32) 11/11/20 11:00 MCHC 33 % (32-34) 11/11/20 11:00 RDW 15.1 % (13.2-15.2) 11/11/20 11:00 Plt Count 239 K/mm3 (140-440) 11/11/20 11:00 Lymph % (Auto) 19.1 % (13.4-35.0) 11/07/20 04:50 [place] % (Auto) 10.3 % (0.0-7.3) H 11/07/20 04:50 Eos % (Auto) 6.9 % (0.0-4.3) H 11/07/20 04:50 Baso % (Auto) 0.6 % (0.0-1.8) 11/07/20 04:50 Lymph # (Auto) 1.5 K/mm3 (1.2-5.4) 11/07/20 04:50 [place] # (Auto) 0.8 K/mm3 (0.0-0.8) 11/07/20 04:50 Eos # (Auto) 0.5 K/mm3 (0.0-0.4) H 11/07/20 04:50 Baso # (Auto) 0.0 K/mm3 (0.0-0.1) 11/07/20 04:50 Add Manual Diff Complete 10/10/20 18:18 Total Counted 100 10/10/20 18:18 Seg Neutrophils % 63.1 % (40.0-70.0) 11/07/20 04:50 Seg Neuts % (Manual) 60.0 % (40.0-70.0) 10/10/20 18:18 Band Neutrophils % 27.0 % 10/10/20 18:18 Lymphocytes % (Manual) 4.0 % (13.4-35.0) L 10/10/20 18:18 Monocytes % (Manual) 9.0 % (0.0-7.3) H 10/10/20 18:18 Eosinophils % (Manual) 4.0 % (0.0-4.3) 10/10/20 10:48 Metamyelocytes % 1.0 % 10/10/20 10:48 Nucleated RBC % Not Reportable 10/10/20 18:18 Seg Neutrophils # 4.8 K/mm3 (1.8-7.7) 11/07/20 04:50 Seg Neutrophils # Man 13.8 K/mm3 (1.8-7.7) H 10/10/20 18:18 Band Neutrophils # 6.2 K/mm3 10/10/20 18:18 Lymphocytes # (Manual) 0.9 K/mm3 (1.2-5.4) L 10/10/20 18:18 Abs React Lymphs (Man) 0.0 K/mm3 10/10/20 18:18 Monocytes # (Manual) 2.1 K/mm3 (0.0-0.8) H 10/10/20 18:18 Eosinophils # (Manual) 0.0 K/mm3 (0.0-0.4) 10/10/20 18:18 Basophils # (Manual) 0.0 K/mm3 (0.0-0.1) 10/10/20 18:18 Metamyelocytes # 0.0 K/mm3 10/10/20 18:18 Myelocytes # 0.0 K/mm3 10/10/20 18:18 Promyelocytes # 0.0 K/mm3 10/10/20 18:18 Blast Cells # 0.0 K/mm3 10/10/20 18:18 WBC Morphology Not Reportable 10/10/20 18:18 Hypersegmented Neuts Not Reportable 10/10/20 18:18 Hyposegmented Neuts Not Reportable 10/10/20 18:18 Hypogranular Neuts Not Reportable 10/10/20 18:18 Smudge Cells Not Reportable 10/10/20 18:18 Toxic Granulation Not Reportable 10/10/20 18:18 Toxic Vacuolation Not Reportable 10/10/20 18:18 Dohle Bodies Not Reportable 10/10/20 18:18 Pelger-Huet Anomaly Not Reportable 10/10/20 18:18 Dionicio Rods Not Reportable 10/10/20 18:18 Platelet Estimate Consistent w auto 10/10/20 18:18 Clumped Platelets Not Reportable 10/10/20 18:18 Plt Clumps, EDTA Not Reportable 10/10/20 18:18 Large Platelets Rare 10/10/20 18:18 Giant Platelets Rare 10/10/20 18:18 Platelet Satelliting Not Reportable 10/10/20 18:18 Plt Morphology Comment Not Reportable 10/10/20 18:18 RBC Morphology Not Reportable 10/10/20 18:18 Dimorphic RBCs Not Reportable 10/10/20 18:18 Polychromasia Not Reportable 10/10/20 18:18 Hypochromasia Not Reportable 10/10/20 18:18 Poikilocytosis Not Reportable 10/10/20 18:18 Anisocytosis Not Reportable 10/10/20 18:18 Microcytosis Not Reportable 10/10/20 18:18 Macrocytosis Not Reportable 10/10/20 18:18 Spherocytes Not Reportable 10/10/20 18:18 Pappenheimer Bodies Not Reportable 10/10/20 18:18 Sickle Cells Not Reportable 10/10/20 18:18 Target Cells Not Reportable 10/10/20 18:18 Tear Drop Cells Not Reportable 10/10/20 18:18 Ovalocytes Not Reportable 10/10/20 18:18 Helmet Cells Not Reportable 10/10/20 18:18 [place] Bodies Not Reportable 10/10/20 18:18 [place] Rings Not Reportable 10/10/20 18:18 [place] Cells Not Reportable 10/10/20 18:18 Bite Cells Not Reportable 10/10/20 18:18 Crenated Cell Not Reportable 10/10/20 18:18 Elliptocytes Not Reportable 10/10/20 18:18 Acanthocytes (Spur) Not Reportable 10/10/20 18:18 Rouleaux Not Reportable 10/10/20 18:18 Hemoglobin C Crystals Not Reportable 10/10/20 18:18 Schistocytes Not Reportable 10/10/20 18:18 Malaria parasites Not Reportable 10/10/20 18:18 Mauricio Bodies Not Reportable 10/10/20 18:18 Hem Pathologist Commnt No 10/10/20 18:18 PT 13.5 Sec. (12.2-14.9) 10/28/20 07:00 INR 1.05 (0.87-1.13) 10/28/20 07:00 APTT 26.9 Sec. (24.2-36.6) 10/10/20 18:18 D-Dimer 679.5 ng/mlDDU (0-234) H 10/10/20 10:48 Heparin Anti-Xa Level 0.22 U.I./ml (0.3-0.7) L 10/11/20 08:35 ABG pH 7.374 (7.320-7.450) 11/13/20 16:43 POC ABG pCO2 68.4 mmHg (32.0-48.0) H 11/13/20 16:43 ABG pCO2 55.5 mm Hg 10/16/20 05:10 POC ABG pO2 101.9 mmHg (83-108) 11/13/20 16:43 ABG pO2 104.5 mm Hg (80.0-90.0) H 10/16/20 05:10 POC ABG HCO3 39.0 11/13/20 16:43 ABG HCO3 35.1 mmol/L (20.0-26.0) H 10/16/20 05:10 ABG O2 Saturation 97.8 (0-100) 11/13/20 16:43 ABG O2 Content 10.8 (0.0-44) 10/16/20 05:10 POC ABG Base Excess 11.7 11/13/20 16:43 ABG Base Excess 9.5 mmol/L (-2.0-3.0) H 10/16/20 05:10 ABG Hemoglobin 10.0 (12.0-17.5) L 11/13/20 16:43 ABG Oxyhemoglobin 96.7 (94-98) 11/13/20 16:43 ABG Carboxyhemoglobin 1.9 % (0.0-5.0) 10/16/20 05:10 ABG Methemoglobin 0.3 (0.0-1.5) 11/13/20 16:43 ABG Sodium 140.6 mmol/L (136.0-145.0) 11/13/20 16:43 ABG Potassium 4.2 mmol/L (3.40-4.50) 11/13/20 16:43 ABG Chloride 98.0 mmol/L (98-107) 11/13/20 16:43 ABG Glucose 133 mg/dL (65-95) H 11/13/20 16:43 VBG pH 6.870 (7.320-7.420) L* 10/10/20 10:48 Oxyhemoglobin 95.3 % (95.0-99.0) 10/16/20 05:10 Carboxyhemoglobin 0.8 (0.5-1.5) 11/13/20 16:43 FiO2 35 % 10/16/20 05:10 FiO2 % 35.0 11/13/20 16:43 Sodium 136 mmol/L (137-145) L 11/11/20 08:38 Potassium 4.2 mmol/L (3.6-5.0) 11/11/20 08:38 Chloride 97.6 mmol/L (98-107) L 11/11/20 08:38 Carbon Dioxide 35 mmol/L (22-30) H 11/11/20 08:38 Anion Gap 8 mmol/L 11/11/20 08:38 BUN 26 mg/dL (9-20) H 11/11/20 08:38 Creatinine 0.9 mg/dL (0.8-1.3) 11/11/20 08:38 Estimated GFR > 60 ml/min 11/11/20 08:38 BUN/Creatinine Ratio 29 % 11/11/20 08:38 Glucose 133 mg/dL (75-100) H 11/11/20 08:38 POC Glucose 108 mg/dL (70-105) H 11/13/20 21:18 Hemoglobin A1c 6.0 % (4-6) 10/11/20 02:00 Lactic Acid 1.10 mmol/L (0.7-2.0) 10/13/20 04:52 Calcium 8.0 mg/dL (8.4-10.2) L 11/11/20 08:38 Phosphorus 5.20 mg/dL (2.5-4.5) H D 10/17/20 03:32 Magnesium 2.30 mg/dL (1.7-2.3) 10/17/20 03:32 Ferritin 81.4 ng/mL (30.0-300.0) 10/10/20 10:48 Total Bilirubin 1.70 mg/dL (0.1-1.2) H 10/18/20 03:27 AST 37 units/L (5-40) 10/18/20 03:27 ALT 32 units/L (7-56) 10/18/20 03:27 Alkaline Phosphatase 97 units/L (35-129) 10/18/20 03:27 Ammonia 214.0 umol/L (25-60) H 10/10/20 10:46 Lactate Dehydrogenase 386 units/L (91-180) H 10/10/20 10:48 Total Creatine Kinase 1192 units/L (55-170) H 10/10/20 18:18 CK-MB (CK-2) 21.7 ng/mL (0.0-4.0) H 10/10/20 18:18 CK-MB (CK-2) Rel Index 1.8 (0-4) 10/10/20 18:18 Troponin T 0.125 ng/mL (0.00-0.029) H* D 10/12/20 04:00 C-Reactive Protein 0.90 mg/dL (0.00-1.30) 10/10/20 10:48 NT-Pro-B Natriuret Pep 1187 pg/mL (0-900) H 10/10/20 10:46 Total Protein 6.3 g/dL (6.3-8.2) 10/18/20 03:27 Albumin 3.1 g/dL (3.9-5) L 10/18/20 03:27 Albumin/Globulin Ratio 1.0 % 10/18/20 03:27 Triglycerides 278 mg/dL (2-149) H 10/13/20 04:52 Cholesterol 138 mg/dL (50-199) 10/10/20 18:18 LDL Cholesterol Direct 76 mg/dL (50-130) 10/10/20 18:18 HDL Cholesterol 49 mg/dL (40-59) 10/10/20 18:18 Cholesterol/HDL Ratio 2.81 % 10/10/20 18:18 Procalcitonin 4.98 ng/mL (<0.15) 10/15/20 04:12 TSH 6.260 mlU/mL (0.270-4.200) H 10/10/20 10:46 Arterial Blood Glucose 133 mg/dL (65-95) H 11/13/20 16:43 Arterial Blood Ionized Calcium 4.7 mg/dL (4.6-5.3) 11/13/20 16:43 Urine Color Angelica (Yellow) 10/18/20 Unknown Urine Turbidity Cloudy (Clear) 10/18/20 Unknown Urine pH 5.0 (5.0-7.0) 10/18/20 Unknown Ur Specific [place] 1.017 (1.003-1.030) 10/18/20 Unknown Urine Protein 100 mg/dl mg/dL (Negative) 10/18/20 Unknown Urine Glucose (UA) Neg mg/dL (Negative) 10/18/20 Unknown Urine Ketones Neg mg/dL (Negative) 10/18/20 Unknown Urine Blood Lg (Negative) 10/18/20 Unknown Urine Nitrite Neg (Negative) 10/18/20 Unknown Urine Bilirubin Neg (Negative) 10/18/20 Unknown Urine Urobilinogen 4.0 mg/dL (<2.0) 10/18/20 Unknown Ur Leukocyte Esterase Neg (Negative) 10/18/20 Unknown Urine WBC (Auto) 115.0 /HPF (0.0-6.0) H 10/18/20 Unknown Urine RBC (Auto) 98.0 /HPF (0.0-6.0) 10/18/20 Unknown U Epithel Cells (Auto) 2.0 /HPF (0-13.0) 10/18/20 Unknown Urine WBC Clumps 3+ /HPF 10/18/20 Unknown Urine Mucus Few /HPF 10/11/20 13:30 Urine Eosinophils None seen (None Seen) 10/11/20 13:30 Urine Creatinine 93.7 mg/dL (0.1-20.0) H 10/19/20 13:14 Urine Sodium 25 mmol/L 10/19/20 13:14 Urine Urea Nitrogen 845 10/19/20 13:14 Nasal Screen MRSA (PCR) Positive (Negative) 10/20/20 13:30 Random Vancomycin 5.8 ug/mL (0-40.0) 10/21/20 06:30 Urine Opiates Screen Negative 10/10/20 10:50 Urine Methadone Screen Negative 10/10/20 10:50 Ur Barbiturates Screen Negative 10/10/20 10:50 Ur Phencyclidine Scrn Negative 10/10/20 10:50 Ur Amphetamines Screen Negative 10/10/20 10:50 U Benzodiazepines Scrn Negative 10/10/20 10:50 Urine Cocaine Screen Negative 10/10/20 10:50 U Marijuana (THC) Screen Positive 10/10/20 10:50 Drugs of Abuse Note Disclamer 10/10/20 10:50 Plasma/Serum Alcohol < 0.01 % (0-0.07) 10/10/20 10:48 Coronavirus (PCR) Negative (Negative) 10/11/20 Unknown Blood Type AB POSITIVE 10/10/20 10:48 Antibody Screen Negative 10/10/20 10:48 Tuttle/IV: Voiding Method Indwelling Catheter Active Medications - Current Medications Current Medications: Generic Name Dose Route Start Last Admin Trade Name Freq PRN Reason Stop Dose Admin Acetaminophen 650 mg 10/10/20 21:51 11/14/20 05:17 Acetaminophen 325 Mg Tab PO 650 mg Q4H PRN Administration Pain MILD(1-3)/Fever >100.5/SALVADOR Albuterol 2.5 mg 10/11/20 13:12 11/13/20 20:24 Albuterol 2.5 Mg/3 Ml Nebu IH 2.5 mg Q6HRT PRN Administration Shortness Of Breath Amlodipine Besylate 10 mg 10/25/20 13:00 11/13/20 09:00 Amlodipine 10 Mg Tab PO 10 mg QDAY PEPITO Administration Lipase/Protease/Amylase 1 each 10/10/20 22:18 Lipase 10,500/Protease 25,000/Amylase 43,750 (Units) Dr Santana FEEDTUBE PRN PRN For Clogged Feeding Tube Clonidine HCl 0.3 mg 10/14/20 15:00 11/11/20 14:03 Clonidine Tts 0.3 Mg/24 Hr Patch TD 0.3 mg Fr PEPITO Administration Docusate Sodium 100 mg 10/16/20 22:00 11/14/20 04:24 Docusate Sodium 100 Mg/10 Ml Oral Liqd PO 100 mg BID PEPITO Administration Fentanyl 1 applic 11/09/20 18:00 11/13/20 17:33 Fentanyl 25 Mcg/Hr Patch 72hr TD 1 applic Q72H PEPITO Administration Glycopyrrolate 1 mg 11/04/20 14:00 11/14/20 05:18 Glycopyrrolate 1 Mg Tab PO 1 mg Q8HR PEPITO Administration Heparin Sodium (Porcine) 5,000 unit 10/11/20 22:00 11/13/20 21:16 Heparin 5,000 Unit/1 Ml Vial SUB-Q 5,000 unit Q12HR PEPITO Administration Hydralazine HCl 10 mg 11/02/20 08:46 11/14/20 05:18 Hydralazine 20 Mg/1 Ml Inj IV 10 mg Q6H PRN Administration Hypertension Hydralazine HCl 100 mg 11/10/20 06:00 11/14/20 05:17 Hydralazine 100 Mg Tab PO 100 mg Q8HR PEPITO Administration Hydromorphone HCl 0.5 mg 11/01/20 20:55 11/13/20 16:24 Hydromorphone 1 Mg/1 Ml Inj IV 0.5 mg Q3H PRN Administration Pain , Severe (7-10) Hydrophilic Ointment 1 applic 10/10/20 10:34 Lip Therapy Vaseline TP Q2HR PRN Dry Lips Lansoprazole 30 mg 10/24/20 10:00 11/13/20 21:15 Lansoprazole 30 Mg Solutab FEEDTUBE 30 mg BID PEPITO Administration Levetiracetam 500 mg 10/31/20 10:00 11/14/20 04:24 Levetiracetam 500 Mg/5 Ml Oral Liqd PO 500 mg BID PEPITO Administration Lorazepam 1 mg 11/04/20 19:27 11/14/20 05:18 Lorazepam 2 Mg/Ml Vial IV 1 mg Q4H PRN Administration Agitation Metoprolol Tartrate 100 mg 10/21/20 14:00 11/13/20 21:14 Metoprolol Tartrate 50 Mg Tab PO 100 mg TID PEPITO Administration Multi-Ingred Cream/Lotion/Oil/Oint 1 applic 10/10/20 10:34 Mineral Oil/Petrolatum, White Ophth Oint 3.5 Gm OU Q4HR PRN Dry Eye(s) Ondansetron HCl 4 mg 10/10/20 21:51 11/01/20 20:48 Ondansetron 4 Mg/2 Ml Inj IV 4 mg Q3H PRN Administration Nausea And Vomiting Polyethylene Glycol 17 gm 10/17/20 10:00 11/13/20 09:01 Polyethylene Glycol 3350 17 Gm Powder PO 17 gm QDAY PEPITO Administration Quetiapine Fumarate 100 mg 11/02/20 10:00 11/13/20 09:01 Quetiapine 100 Mg Tab PO 100 mg DAILY PEPITO Administration Quetiapine Fumarate 200 mg 11/07/20 22:00 11/13/20 21:12 Quetiapine 200 Mg Tab PO 200 mg QHS PEPITO Administration Quetiapine Fumarate 25 mg 11/07/20 14:00 11/13/20 09:00 Quetiapine 25 Mg Tab PO 25 mg DAILY PEPITO Administration Scopolamine 1 each 10/17/20 10:00 11/13/20 09:04 Scopolamine Transdermal Patch 72 Hr TD 1 each Q3D PEPITO Administration Simple Syrup 15 ml 10/10/20 22:18 Simple Syrup 15 Ml FEEDTUBE PRN PRN Hypoglycemia Simple Syrup 30 ml 10/10/20 22:18 Simple Syrup 15 Ml FEEDTUBE PRN PRN Hypoglycemia Sodium Bicarbonate 325 mg 10/10/20 22:18 Sodium Bicarbonate 325 Mg Tab FEEDTUBE PRN PRN For Clogged Feeding Tube Sodium Chloride 10 ml 10/10/20 22:00 11/14/20 04:25 Sodium Chloride 0.9% 10 Ml Flush Syringe IV 10 ml BID PEPITO Administration Nutrition/Malnutrition Assess - Dietary Evaluation Nutrition/Malnutrition Findings: Nutrition Notes Start: 10/11/20 08:38 Freq: Status: Active Protocol: Document 11/09/20 08:06 LP (Rec: 11/09/20 08:09 LP [id number]) Nutrition Notes Initial or Follow up Reassessment Current Diagnosis Acute Kidney Injury,Sepsis, Hypertension,Heart Failure, Respiratory Failure Other Pertinent Diagnosis GIB, pneu, MRSA NE, pulmonary edema Current Diet Promote at 80 ml/hr Labs/Tests Reviewed Pertinent Medications Reviewed Height 6 ft Weight 125.6 kg [place] Body Weight (kg) 80.90 BMI 37.5 Weight change and time frame Wt fluctuations expected Weight Status Morbidly Obese Subjective/Other Information Pt tolerating TF at goal rate. Percent of energy/protein needs met: 100%/74% Burn Absent Trauma Absent Difficulty In Swallowing Skin Integrity/Comment DTI to heel Current % PO Negligible Minimum of two criteria No Fluid Accumulation Mild (non-severe) #3 Nutrition Diagnosis Increased nutrient needs ( specify in comment below) Diagnosis Progress(for reassessment Continues documentation) #1 Nutrition Diagnosis Inadequate oral intake Diagnosis Progress(for reassessment Continues documentation) Is patient on ventilator? Yes Is Patient Ambulatory and/or Out of Bed No REE-([facility]-confined to bed) 2570.376 Kcal/Kg value to use for calculation 15 Approximate Energy Requirements Using 1884 kcal/Kg Calculation Used for Recommendations Kcal/kg Additional Notes protein needs: >162g (>2 kgIBW of dry weight) fluid needs: 1 ml/kcal or per MD Nutrition Intervention Change Diet Order: Continue Nutrition Support: Promote at 80 ml/hr flush of 50 ml q4h. Kcal 1,920 Protein (gm) 120 Fluid (mL) 1,611 Goal #1 Tolerate TF Goal #2 Meet at least 70% of protein and 100% of kcal needs via TF Anticipated Discharge Needs: TF Follow-Up By: 11/14/20 Additional Comments Follow for stable TF
[2020-11-14] MEDS: POLYETHYLENE GLYCOL 3350 17 GM POWDER PO SCH (09:24)
[2020-11-14] MEDS: QUEtiapine 25 MG TAB PO SCH (09:25)
[2020-11-14] MEDS: QUEtiapine 100 MG TAB PO SCH (09:25)
[2020-11-14] MEDS: HEPARIN 5,000 UNIT/1 ML VIAL SUB-Q SCH ×2 (09:25→22:20)
[2020-11-14] MEDS: LANSOPRAZOLE 30 MG SOLUTAB FEEDTUBE SCH ×2 (09:25→22:20)
[2020-11-14] MEDS: amLODIPine 10 MG TAB PO SCH (09:25)
[2020-11-14] MEDS: METOPROLOL TARTRATE 50 MG TAB PO SCH ×3 (09:26→22:37)
[2020-11-14] MEDS: ALBUTEROL 2.5 MG/3 ML NEBU IH PRN (09:54)
--- NOTE | 2020-11-14 11:49 | XRay Report ---
ABDOMEN 2 VIEWS INDICATION / CLINICAL INFORMATION: abdominal retention. COMPARISON: 11/12/2020 FINDINGS: TUBES / LINES: PEG tube noted in appropriate position projected over the gastric lumen. BOWEL GAS PATTERN: Nonobstructive bowel gas pattern. Abundant fecal material noted at the rectal vaul t. FREE AIR / EXTRALUMINAL GAS: None seen. ADDITIONAL FINDINGS: No significant additional findings. CHEST: Diffuse bilateral pulmonary opacities are similar to prior exam. IMPRESSION: 1. PEG tube noted in appropriate position. 2. Nonobstructive bowel gas pattern. 3. Diffuse bilateral pulmonary opacities are similar to prior exam. Signer Name: Joshua Conley MD Signed: 11/14/2020 11:44 AM Workstation Name: [id number]
--- NOTE | 2020-11-14 13:44 | Progress Note ---
Assessment and Plan 55-year-old -[place] male with history of hypertension and asthma and obesity who became unresponsive after COVID-19 vaccination. Patient was brought to the ED and coded twice. Patient resuscitated and placed on mechanical ventilation. Patient subsequently had tracheostomy. Patient weaned from ventilator. Patient presently on T-tube. Patient not responding to verbal stimuli. Presently resting on trach collar. FiO2 35%. O2 saturation running 99%. No acute respiratory distress. Patient running a low grade temperature. No leukocytosis. Chest X-ray done 11/12/20. Reported mild, diffuse disease, suggesting pulmonary edema. Patient presently on s/c heparin, prevacid, and albuterol. - Patient Problems (1) Acute respiratory failure with hypoxia and hypercarbia Current Visit: Yes Status: Acute Plan to address problem: Patient presently on T-tube. FiO2 35%. O2 saturation 99%. Continue albuterol aerosol treatments. Respiratory suctioning as needed. Continue s/c heparin. Continue prevacid. (2) Bilateral pneumonia Current Visit: Yes Status: Acute Plan to address problem: Pneumonia is improved. Repeat chest x-ray on 11/12/20. Reported mild, diffuse disease, suggesting pulmonary edema. Patient afebrile, no leukocytosis. (3) Cardiopulmonary arrest with successful resuscitation Current Visit: Yes Status: Acute Plan to address problem: Patient successfully resuscitated. Presently resting on T-tube. (4) MOE (acute kidney injury) Current Visit: Yes Status: Acute Plan to address problem: Management per Neprology. (5) Accelerated hypertension Current Visit: Yes Status: Acute Plan to address problem: Management per primary care. (6) Acute heart failure with preserved ejection fraction (HFpEF) Current Visit: Yes Status: Acute Plan to address problem: Management per cardiology. (7) Atrial fibrillation and flutter Current Visit: Yes Status: Acute Plan to address problem: Management per cardiology. (8) GI bleed Current Visit: Yes Status: Acute Plan to address problem: Management per GI. (9) Hypotension Current Visit: Yes Status: Acute Plan to address problem: Improved. Today's BP is 178/94. (10) NSTEMI (non-ST elevated myocardial infarction) Current Visit: Yes Status: Acute Plan to address problem: Management per cardiology. (11) Seizure Current Visit: Yes Status: Acute Plan to address problem: Management per primary care and Neurology. Subjective Date of service: 11/14/20 Principal diagnosis: Cardiac arrest; Septic Shock; Ac. hypoxemic & hypercapnic resp failure; MOE Interval history: 55-year-old -[place] male with history of hypertension and asthma and obesity who became unresponsive after COVID-19 vaccination. Patient was brought to the ED and coded twice. Patient resuscitated and placed on mechanical ventilation. Patient subsequently had tracheostomy. Patient weaned from ventilator. Patient presently on T-tube. Patient not responding to verbal stimuli. Presently resting on trach collar. FiO2 35%. O2 saturation running 99%. No acute respiratory distress. Patient running a low grade temperature. No leukocytosis. Chest X-ray done 11/12/20. Reported mild, diffuse disease, suggesting pulmonary edema. Patient presently on s/c heparin, prevacid, and albuterol. Objective Vital Signs - 12hr 11/14/20 11/14/20 11/14/20 05:05 05:18 07:32 Temperature 100.0 F H 99.3 F Pulse Rate 91 H 100 H 73 Pulse Rate [ Anterior Bilateral Throughout] Pulse Rate [ From Monitor] Respiratory 20 26 H Rate Respiratory Rate [Anterior Bilateral Throughout] Blood Pressure 193/102 193/102 171/98 O2 Sat by Pulse 97 96 Oximetry O2 Sat by Pulse Oximetry [ Assessment] 11/14/20 11/14/20 11/14/20 09:25 09:26 09:54 Temperature Pulse Rate 100 H 100 H Pulse Rate [ 91 H Anterior Bilateral Throughout] Pulse Rate [ From Monitor] Respiratory Rate Respiratory 20 Rate [Anterior Bilateral Throughout] Blood Pressure 162/101 162/101 O2 Sat by Pulse 95 Oximetry O2 Sat by Pulse 95 Oximetry [ Assessment] 11/14/20 11/14/20 11/14/20 10:00 11:14 12:01 Temperature 99.7 F H Pulse Rate 84 84 Pulse Rate [ Anterior Bilateral Throughout] Pulse Rate [ 100 H From Monitor] Respiratory 19 26 H Rate Respiratory Rate [Anterior Bilateral Throughout] Blood Pressure 169/102 169/102 O2 Sat by Pulse 85 Oximetry O2 Sat by Pulse Oximetry [ Assessment] 11/14/20 13:16 Temperature Pulse Rate 91 H Pulse Rate [ Anterior Bilateral Throughout] Pulse Rate [ From Monitor] Respiratory Rate Respiratory Rate [Anterior Bilateral Throughout] Blood Pressure 163/91 O2 Sat by Pulse Oximetry O2 Sat by Pulse Oximetry [ Assessment] Constitutional: no acute distress, asleep, other (middle aged obese male with mildly increased respiratory effort at rest) Eyes: non-icteric ENT: oropharynx moist, oropharyngeal exudate pre (thick), other (midline trach eostomy) Neck: supple, no lymphadenopathy, no JVD Effort: mildly labored Ascultation: Bilateral: diminished breath sounds, rhonchi (scant) Percussion: Bilateral: not dull Cardiovascular: regular rate and rhythm, other (S1,S2) Gastrointestinal: normoactive bowel sounds, soft, non-tender, non-distended (protuberant) Integumentary: normal Extremities: no cyanosis, no edema, pulses normal, no ischemia or petechiae Neurologic: pupils equal and round, unable to assess, other (encephalopathic) Psychiatric: other (unable to assess re: AMS) CBC and BMP: 11/11/20 11:00 11/11/20 08:38 ABG, PT/INR, D-dimer: ABG ABG pH 7.374 (7.320-7.450) 11/13/20 16:43 POC ABG pCO2 68.4 mmHg (32.0-48.0) H 11/13/20 16:43 ABG pCO2 55.5 mm Hg 10/16/20 05:10 POC ABG pO2 101.9 mmHg (83-108) 11/13/20 16:43 ABG pO2 104.5 mm Hg (80.0-90.0) H 10/16/20 05:10 POC ABG HCO3 39.0 11/13/20 16:43 ABG O2 Saturation 97.8 (0-100) 11/13/20 16:43 PT/INR, D-dimer PT 13.5 Sec. (12.2-14.9) 10/28/20 07:00 INR 1.05 (0.87-1.13) 10/28/20 07:00 D-Dimer 679.5 ng/mlDDU (0-234) H 10/10/20 10:48 Abnormal lab findings: Abnormal Labs 10/10/20 10/10/20 10/10/20 10:46 10:46 10:46 WBC RBC Hgb Hct RDW Lymph % (Auto) Bath % (Auto) Eos % (Auto) Lymph # (Auto) Bath # (Auto) Eos # (Auto) Seg Neutrophils % Lymphocytes % (Manual) Monocytes % (Manual) Seg Neutrophils # Seg Neutrophils # Man Lymphocytes # (Manual) Monocytes # (Manual) D-Dimer Heparin Anti-Xa Level ABG pH POC ABG pCO2 POC ABG pO2 ABG pO2 ABG HCO3 ABG O2 Saturation ABG Base Excess ABG Hemoglobin ABG Oxyhemoglobin ABG Sodium ABG Potassium ABG Chloride ABG Glucose VBG pH Oxyhemoglobin Carboxyhemoglobin Sodium Potassium Chloride Carbon Dioxide BUN Creatinine Glucose POC Glucose Lactic Acid 13.60 H* Calcium Phosphorus Magnesium Total Bilirubin AST ALT Ammonia 214.0 H Lactate Dehydrogenase Total Creatine Kinase CK-MB (CK-2) Troponin T NT-Pro-B Natriuret Pep Total Protein Albumin Triglycerides TSH 6.260 H Arterial Blood Glucose Arterial Blood Ionized Calcium Urine pH Urine WBC (Auto) Urine Creatinine 10/10/20 10/10/20 10/10/20 10:46 10:48 10:48 WBC RBC 5.28 H Hgb 15.5 H Hct 48.8 H RDW Lymph % (Auto) Bath % (Auto) Eos % (Auto) Lymph # (Auto) Bath # (Auto) Eos # (Auto) Seg Neutrophils % Lymphocytes % (Manual) 42.0 H Monocytes % (Manual) Seg Neutrophils # Seg Neutrophils # Man Lymphocytes # (Manual) Monocytes # (Manual) D-Dimer Heparin Anti-Xa Level ABG pH POC ABG pCO2 POC ABG pO2 ABG pO2 ABG HCO3 ABG O2 Saturation ABG Base Excess ABG Hemoglobin ABG Oxyhemoglobin ABG Sodium ABG Potassium ABG Chloride ABG Glucose VBG pH Oxyhemoglobin Carboxyhemoglobin Sodium Potassium 3.3 L Chloride 91.2 L Carbon Dioxide BUN Creatinine 1.8 H Glucose 231 H POC Glucose Lactic Acid Calcium Phosphorus Magnesium Total Bilirubin AST 60 H ALT 57 H Ammonia Lactate Dehydrogenase Total Creatine Kinase CK-MB (CK-2) Troponin T NT-Pro-B Natriuret Pep 1187 H Total Protein 9.0 H Albumin Triglycerides TSH Arterial Blood Glucose Arterial Blood Ionized Calcium Urine pH Urine WBC (Auto) Urine Creatinine 10/10/20 10/10/20 10/10/20 10:48 10:48 10:48 WBC RBC Hgb Hct RDW Lymph % (Auto) Bath % (Auto) Eos % (Auto) Lymph # (Auto) Bath # (Auto) Eos # (Auto) Seg Neutrophils % Lymphocytes % (Manual) Monocytes % (Manual) Seg Neutrophils # Seg Neutrophils # Man Lymphocytes # (Manual) Monocytes # (Manual) D-Dimer 679.5 H Heparin Anti-Xa Level ABG pH POC ABG pCO2 POC ABG pO2 ABG pO2 ABG HCO3 ABG O2 Saturation ABG Base Excess ABG Hemoglobin ABG Oxyhemoglobin ABG Sodium ABG Potassium ABG Chloride ABG Glucose VBG pH 6.870 L* Oxyhemoglobin Carboxyhemoglobin Sodium Potassium Chloride Carbon Dioxide BUN Creatinine Glucose POC Glucose Lactic Acid Calcium Phosphorus Magnesium Total Bilirubin AST ALT Ammonia Lactate Dehydrogenase 386 H Total Creatine Kinase CK-MB (CK-2) Troponin T NT-Pro-B Natriuret Pep Total Protein Albumin Triglycerides TSH Arterial Blood Glucose Arterial Blood Ionized Calcium Urine pH Urine WBC (Auto) Urine Creatinine 10/10/20 10/10/20 10/10/20 14:10 14:20 15:50 WBC RBC Hgb Hct RDW Lymph % (Auto) Bath % (Auto) Eos % (Auto) Lymph # (Auto) Bath # (Auto) Eos # (Auto) Seg Neutrophils % Lymphocytes % (Manual) Monocytes % (Manual) Seg Neutrophils # Seg Neutrophils # Man Lymphocytes # (Manual) Monocytes # (Manual) D-Dimer Heparin Anti-Xa Level ABG pH 7.175 L 7.247 L POC ABG pCO2 85.0 H POC ABG pO2 43.7 L ABG pO2 60.3 L ABG HCO3 32.0 H ABG O2 Saturation 86.1 L ABG Base Excess ABG Hemoglobin ABG Oxyhemoglobin 67.7 L ABG Sodium ABG Potassium ABG Chloride ABG Glucose 247 H VBG pH Oxyhemoglobin 84.4 L Carboxyhemoglobin Sodium Potassium Chloride Carbon Dioxide BUN Creatinine Glucose POC Glucose Lactic Acid 4.00 H* Calcium Phosphorus Magnesium Total Bilirubin AST ALT Ammonia Lactate Dehydrogenase Total Creatine Kinase CK-MB (CK-2) Troponin T NT-Pro-B Natriuret Pep Total Protein Albumin Triglycerides TSH Arterial Blood Glucose 247 H Arterial Blood Ionized Calcium 4.4 L Urine pH Urine WBC (Auto) Urine Creatinine 10/10/20 10/10/20 10/10/20 15:50 16:22 18:18 WBC RBC Hgb Hct RDW Lymph % (Auto) Bath % (Auto) Eos % (Auto) Lymph # (Auto) Bath # (Auto) Eos # (Auto) Seg Neutrophils % Lymphocytes % (Manual) Monocytes % (Manual) Seg Neutrophils # Seg Neutrophils # Man Lymphocytes # (Manual) Monocytes # (Manual) D-Dimer Heparin Anti-Xa Level ABG pH 7.171 L POC ABG pCO2 96.6 H POC ABG pO2 55.3 L ABG pO2 ABG HCO3 ABG O2 Saturation ABG Base Excess ABG Hemoglobin ABG Oxyhemoglobin 81.4 L ABG Sodium ABG Potassium ABG Chloride ABG Glucose 115 H VBG pH Oxyhemoglobin Carboxyhemoglobin Sodium Potassium Chloride Carbon Dioxide BUN Creatinine Glucose POC Glucose 132 H Lactic Acid Calcium Phosphorus Magnesium Total Bilirubin AST ALT Ammonia Lactate Dehydrogenase Total Creatine Kinase 1192 H CK-MB (CK-2) 21.7 H Troponin T 0.377 H* D NT-Pro-B Natriuret Pep Total Protein Albumin Triglycerides TSH Arterial Blood Glucose 115 H Arterial Blood Ionized Calcium Urine pH Urine WBC (Auto) Urine Creatinine 10/10/20 10/10/20 10/10/20 18:18 18:18 22:49 WBC 23.0 H RBC 5.12 H Hgb Hct RDW Lymph % (Auto) Bath % (Auto) Eos % (Auto) Lymph # (Auto) Bath # (Auto) Eos # (Auto) Seg Neutrophils % Lymphocytes % (Manual) 4.0 L Monocytes % (Manual) 9.0 H Seg Neutrophils # Seg Neutrophils # Man 13.8 H Lymphocytes # (Manual) 0.9 L Monocytes # (Manual) 2.1 H D-Dimer Heparin Anti-Xa Level ABG pH POC ABG pCO2 POC ABG pO2 ABG pO2 ABG HCO3 ABG O2 Saturation ABG Base Excess ABG Hemoglobin ABG Oxyhemoglobin ABG Sodium ABG Potassium ABG Chloride ABG Glucose VBG pH Oxyhemoglobin Carboxyhemoglobin Sodium 146 H Potassium Chloride Carbon Dioxide 34 H D BUN 27 H Creatinine 2.7 H Glucose 102 H POC Glucose Lactic Acid Calcium Phosphorus Magnesium Total Bilirubin AST 90 H ALT 66 H Ammonia Lactate Dehydrogenase Total Creatine Kinase CK-MB (CK-2) Troponin T 0.273 H* D NT-Pro-B Natriuret Pep Total Protein Albumin Triglycerides TSH Arterial Blood Glucose Arterial Blood Ionized Calcium Urine pH Urine WBC (Auto) Urine Creatinine 10/11/20 10/11/20 10/11/20 02:00 02:00 02:00 WBC 17.3 H RBC Hgb Hct RDW Lymph % (Auto) 3.9 L Bath % (Auto) Eos % (Auto) Lymph # (Auto) 0.7 L Bath # (Auto) Eos # (Auto) Seg Neutrophils % 93.0 H Lymphocytes % (Manual) Monocytes % (Manual) Seg Neutrophils # 16.1 H Seg Neutrophils # Man Lymphocytes # (Manual) Monocytes # (Manual) D-Dimer Heparin Anti-Xa Level ABG pH POC ABG pCO2 POC ABG pO2 ABG pO2 ABG HCO3 ABG O2 Saturation ABG Base Excess ABG Hemoglobin ABG Oxyhemoglobin ABG Sodium ABG Potassium ABG Chloride ABG Glucose VBG pH Oxyhemoglobin Carboxyhemoglobin Sodium 149 H Potassium 3.3 L Chloride 95.3 L Carbon Dioxide 37 H BUN 29 H Creatinine 2.6 H Glucose POC Glucose Lactic Acid Calcium Phosphorus Magnesium Total Bilirubin AST 80 H ALT 59 H Ammonia Lactate Dehydrogenase Total Creatine Kinase CK-MB (CK-2) Troponin T 0.201 H* D NT-Pro-B Natriuret Pep Total Protein Albumin 3.6 L Triglycerides TSH Arterial Blood Glucose Arterial Blood Ionized Calcium Urine pH Urine WBC (Auto) Urine Creatinine 10/11/20 10/11/20 10/11/20 03:51 08:35 11:15 WBC RBC Hgb Hct RDW Lymph % (Auto) Bath % (Auto) Eos % (Auto) Lymph # (Auto) Bath # (Auto) Eos # (Auto) Seg Neutrophils % Lymphocytes % (Manual) Monocytes % (Manual) Seg Neutrophils # Seg Neutrophils # Man Lymphocytes # (Manual) Monocytes # (Manual) D-Dimer Heparin Anti-Xa Level 0.22 L ABG pH 7.491 H POC ABG pCO2 57.6 H POC ABG pO2 ABG pO2 ABG HCO3 ABG O2 Saturation ABG Base Excess ABG Hemoglobin ABG Oxyhemoglobin ABG Sodium 150.0 H ABG Potassium 3.1 L ABG Chloride 96.0 L ABG Glucose 122 H VBG pH Oxyhemoglobin Carboxyhemoglobin Sodium Potassium Chloride Carbon Dioxide BUN Creatinine Glucose POC Glucose 151 H Lactic Acid Calcium Phosphorus Magnesium Total Bilirubin AST ALT Ammonia Lactate Dehydrogenase Total Creatine Kinase CK-MB (CK-2) Troponin T NT-Pro-B Natriuret Pep Total Protein Albumin Triglycerides TSH Arterial Blood Glucose 122 H Arterial Blood Ionized Calcium 3.9 L Urine pH Urine WBC (Auto) Urine Creatinine 10/11/20 10/11/20 10/11/20 13:30 13:30 13:30 WBC 15.0 H RBC Hgb Hct RDW Lymph % (Auto) Bath % (Auto) Eos % (Auto) Lymph # (Auto) Bath # (Auto) Eos # (Auto) Seg Neutrophils % Lymphocytes % (Manual) Monocytes % (Manual) Seg Neutrophils # Seg Neutrophils # Man Lymphocytes # (Manual) Monocytes # (Manual) D-Dimer Heparin Anti-Xa Level ABG pH POC ABG pCO2 POC ABG pO2 ABG pO2 ABG HCO3 ABG O2 Saturation ABG Base Excess ABG Hemoglobin ABG Oxyhemoglobin ABG Sodium ABG Potassium ABG Chloride ABG Glucose VBG pH Oxyhemoglobin Carboxyhemoglobin Sodium Potassium Chloride Carbon Dioxide BUN Creatinine Glucose POC Glucose Lactic Acid Calcium Phosphorus Magnesium Total Bilirubin AST ALT Ammonia Lactate Dehydrogenase Total Creatine Kinase CK-MB (CK-2) Troponin T NT-Pro-B Natriuret Pep Total Protein Albumin Triglycerides TSH Arterial Blood Glucose Arterial Blood Ionized Calcium Urine pH 9.0 H Urine WBC (Auto) 18.0 H Urine Creatinine 80.5 H 10/11/20 10/11/20 10/12/20 17:17 23:14 03:53 WBC RBC Hgb Hct RDW Lymph % (Auto) Bath % (Auto) Eos % (Auto) Lymph # (Auto) Bath # (Auto) Eos # (Auto) Seg Neutrophils % Lymphocytes % (Manual) Monocytes % (Manual) Seg Neutrophils # Seg Neutrophils # Man Lymphocytes # (Manual) Monocytes # (Manual) D-Dimer Heparin Anti-Xa Level ABG pH 7.545 H POC ABG pCO2 54.6 H POC ABG pO2 231.9 H ABG pO2 ABG HCO3 ABG O2 Saturation ABG Base Excess ABG Hemoglobin ABG Oxyhemoglobin 98.5 H ABG Sodium 150.5 H ABG Potassium 3.2 L ABG Chloride 96.0 L ABG Glucose 148 H VBG pH Oxyhemoglobin Carboxyhemoglobin Sodium Potassium Chloride Carbon Dioxide BUN Creatinine Glucose POC Glucose 121 H 135 H Lactic Acid Calcium Phosphorus Magnesium Total Bilirubin AST ALT Ammonia Lactate Dehydrogenase Total Creatine Kinase CK-MB (CK-2) Troponin T NT-Pro-B Natriuret Pep Total Protein Albumin Triglycerides TSH Arterial Blood Glucose 148 H Arterial Blood Ionized Calcium 3.8 L Urine pH Urine WBC (Auto) Urine Creatinine 10/12/20 10/12/20 10/12/20 04:00 05:10 05:12 WBC 14.3 H RBC Hgb 11.6 L Hct 35.2 L RDW Lymph % (Auto) Bath % (Auto) Eos % (Auto) Lymph # (Auto) Bath # (Auto) Eos # (Auto) Seg Neutrophils % Lymphocytes % (Manual) Monocytes % (Manual) Seg Neutrophils # Seg Neutrophils # Man Lymphocytes # (Manual) Monocytes # (Manual) D-Dimer Heparin Anti-Xa Level ABG pH POC ABG pCO2 POC ABG pO2 ABG pO2 ABG HCO3 ABG O2 Saturation ABG Base Excess ABG Hemoglobin ABG Oxyhemoglobin ABG Sodium ABG Potassium ABG Chloride ABG Glucose VBG pH Oxyhemoglobin Carboxyhemoglobin Sodium 155 H Potassium 3.3 L Chloride 97.9 L Carbon Dioxide 47 H* D BUN 50 H Creatinine 3.4 H Glucose 146 H POC Glucose 137 H Lactic Acid Calcium 8.0 L Phosphorus Magnesium Total Bilirubin AST ALT Ammonia Lactate Dehydrogenase Total Creatine Kinase CK-MB (CK-2) Troponin T 0.125 H* D NT-Pro-B Natriuret Pep Total Protein Albumin Triglycerides TSH Arterial Blood Glucose Arterial Blood Ionized Calcium Urine pH Urine WBC (Auto) Urine Creatinine 10/12/20 10/12/20 10/12/20 11:39 16:01 19:49 WBC RBC Hgb Hct RDW Lymph % (Auto) Bath % (Auto) Eos % (Auto) Lymph # (Auto) Bath # (Auto) Eos # (Auto) Seg Neutrophils % Lymphocytes % (Manual) Monocytes % (Manual) Seg Neutrophils # Seg Neutrophils # Man Lymphocytes # (Manual) Monocytes # (Manual) D-Dimer Heparin Anti-Xa Level ABG pH POC ABG pCO2 POC ABG pO2 ABG pO2 ABG HCO3 ABG O2 Saturation ABG Base Excess ABG Hemoglobin ABG Oxyhemoglobin ABG Sodium ABG Potassium ABG Chloride ABG Glucose VBG pH Oxyhemoglobin Carboxyhemoglobin Sodium 157 H Potassium 3.3 L Chloride Carbon Dioxide 47 H* BUN 52 H Creatinine 3.0 H Glucose 137 H POC Glucose 138 H 119 H Lactic Acid Calcium 8.0 L Phosphorus Magnesium Total Bilirubin AST ALT Ammonia Lactate Dehydrogenase Total Creatine Kinase CK-MB (CK-2) Troponin T NT-Pro-B Natriuret Pep Total Protein Albumin Triglycerides TSH Arterial Blood Glucose Arterial Blood Ionized Calcium Urine pH Urine WBC (Auto) Urine Creatinine 10/12/20 10/13/20 10/13/20 23:37 02:28 04:52 WBC RBC Hgb Hct RDW Lymph % (Auto) Bath % (Auto) Eos % (Auto) Lymph # (Auto) Bath # (Auto) Eos # (Auto) Seg Neutrophils % Lymphocytes % (Manual) Monocytes % (Manual) Seg Neutrophils # Seg Neutrophils # Man Lymphocytes # (Manual) Monocytes # (Manual) D-Dimer Heparin Anti-Xa Level ABG pH 7.485 H POC ABG pCO2 57.1 H POC ABG pO2 ABG pO2 ABG HCO3 ABG O2 Saturation ABG Base Excess ABG Hemoglobin ABG Oxyhemoglobin ABG Sodium 152.4 H ABG Potassium ABG Chloride ABG Glucose 129 H VBG pH Oxyhemoglobin Carboxyhemoglobin Sodium 155 H Potassium Chloride Carbon Dioxide 45 H* BUN 52 H Creatinine 2.7 H Glucose 121 H POC Glucose 131 H Lactic Acid Calcium Phosphorus Magnesium 2.40 H Total Bilirubin AST ALT Ammonia Lactate Dehydrogenase Total Creatine Kinase CK-MB (CK-2) Troponin T NT-Pro-B Natriuret Pep Total Protein Albumin Triglycerides 278 H TSH Arterial Blood Glucose 129 H Arterial Blood Ionized Calcium 4.1 L Urine pH Urine WBC (Auto) Urine Creatinine 10/13/20 10/13/20 10/13/20 04:52 05:13 11:37 WBC 14.7 H RBC Hgb 11.7 L Hct RDW 15.8 H Lymph % (Auto) Bath % (Auto) Eos % (Auto) Lymph # (Auto) Bath # (Auto) Eos # (Auto) Seg Neutrophils % Lymphocytes % (Manual) Monocytes % (Manual) Seg Neutrophils # Seg Neutrophils # Man Lymphocytes # (Manual) Monocytes # (Manual) D-Dimer Heparin Anti-Xa Level ABG pH POC ABG pCO2 POC ABG pO2 ABG pO2 ABG HCO3 ABG O2 Saturation ABG Base Excess ABG Hemoglobin ABG Oxyhemoglobin ABG Sodium ABG Potassium ABG Chloride ABG Glucose VBG pH Oxyhemoglobin Carboxyhemoglobin Sodium Potassium Chloride Carbon Dioxide BUN Creatinine Glucose POC Glucose 116 H 116 H Lactic Acid Calcium Phosphorus Magnesium Total Bilirubin AST ALT Ammonia Lactate Dehydrogenase Total Creatine Kinase CK-MB (CK-2) Troponin T NT-Pro-B Natriuret Pep Total Protein Albumin Triglycerides TSH Arterial Blood Glucose Arterial Blood Ionized Calcium Urine pH Urine WBC (Auto) Urine Creatinine 10/13/20 10/14/20 10/14/20 17:50 03:45 04:46 WBC 11.1 H RBC Hgb Hct RDW 15.3 H Lymph % (Auto) Bath % (Auto) Eos % (Auto) Lymph # (Auto) Bath # (Auto) Eos # (Auto) Seg Neutrophils % Lymphocytes % (Manual) Monocytes % (Manual) Seg Neutrophils # Seg Neutrophils # Man Lymphocytes # (Manual) Monocytes # (Manual) D-Dimer Heparin Anti-Xa Level ABG pH POC ABG pCO2 59.6 H POC ABG pO2 ABG pO2 ABG HCO3 ABG O2 Saturation ABG Base Excess ABG Hemoglobin ABG Oxyhemoglobin ABG Sodium 151.4 H ABG Potassium 3.3 L ABG Chloride ABG Glucose 138 H VBG pH Oxyhemoglobin Carboxyhemoglobin 1.6 H Sodium Potassium Chloride Carbon Dioxide BUN Creatinine Glucose POC Glucose 140 H Lactic Acid Calcium Phosphorus Magnesium Total Bilirubin AST ALT Ammonia Lactate Dehydrogenase Total Creatine Kinase CK-MB (CK-2) Troponin T NT-Pro-B Natriuret Pep Total Protein Albumin Triglycerides TSH Arterial Blood Glucose 138 H Arterial Blood Ionized Calcium 4.5 L Urine pH Urine WBC (Auto) Urine Creatinine 10/14/20 10/14/20 10/14/20 04:46 05:10 11:11 WBC RBC Hgb Hct RDW Lymph % (Auto) Bath % (Auto) Eos % (Auto) Lymph # (Auto) Bath # (Auto) Eos # (Auto) Seg Neutrophils % Lymphocytes % (Manual) Monocytes % (Manual) Seg Neutrophils # Seg Neutrophils # Man Lymphocytes # (Manual) Monocytes # (Manual) D-Dimer Heparin Anti-Xa Level ABG pH POC ABG pCO2 POC ABG pO2 ABG pO2 ABG HCO3 ABG O2 Saturation ABG Base Excess ABG Hemoglobin ABG Oxyhemoglobin ABG Sodium ABG Potassium ABG Chloride ABG Glucose VBG pH Oxyhemoglobin Carboxyhemoglobin Sodium 152 H Potassium 3.5 L Chloride Carbon Dioxide 38 H D BUN 46 H Creatinine 2.3 H Glucose 127 H POC Glucose 116 H 114 H Lactic Acid Calcium Phosphorus Magnesium Total Bilirubin AST ALT Ammonia Lactate Dehydrogenase Total Creatine Kinase CK-MB (CK-2) Troponin T NT-Pro-B Natriuret Pep Total Protein Albumin Triglycerides TSH Arterial Blood Glucose Arterial Blood Ionized Calcium Urine pH Urine WBC (Auto) Urine Creatinine 10/14/20 10/14/20 10/15/20 18:53 23:23 04:12 WBC RBC Hgb Hct RDW Lymph % (Auto) Bath % (Auto) Eos % (Auto) Lymph # (Auto) Bath # (Auto) Eos # (Auto) Seg Neutrophils % Lymphocytes % (Manual) Monocytes % (Manual) Seg Neutrophils # Seg Neutrophils # Man Lymphocytes # (Manual) Monocytes # (Manual) D-Dimer Heparin Anti-Xa Level ABG pH POC ABG pCO2 POC ABG pO2 ABG pO2 ABG HCO3 ABG O2 Saturation ABG Base Excess ABG Hemoglobin ABG Oxyhemoglobin ABG Sodium ABG Potassium ABG Chloride ABG Glucose VBG pH Oxyhemoglobin Carboxyhemoglobin Sodium 149 H Potassium 3.2 L Chloride Carbon Dioxide 37 H BUN 40 H Creatinine 2.0 H Glucose 124 H POC Glucose 128 H 113 H Lactic Acid Calcium Phosphorus Magnesium Total Bilirubin AST ALT Ammonia Lactate Dehydrogenase Total Creatine Kinase CK-MB (CK-2) Troponin T NT-Pro-B Natriuret Pep Total Protein Albumin Triglycerides TSH Arterial Blood Glucose Arterial Blood Ionized Calcium Urine pH Urine WBC (Auto) Urine Creatinine 10/15/20 10/15/20 10/15/20 04:22 11:39 17:36 WBC RBC Hgb Hct RDW Lymph % (Auto) Bath % (Auto) Eos % (Auto) Lymph # (Auto) Bath # (Auto) Eos # (Auto) Seg Neutrophils % Lymphocytes % (Manual) Monocytes % (Manual) Seg Neutrophils # Seg Neutrophils # Man Lymphocytes # (Manual) Monocytes # (Manual) D-Dimer Heparin Anti-Xa Level ABG pH POC ABG pCO2 POC ABG pO2 ABG pO2 115.0 H ABG HCO3 38.1 H ABG O2 Saturation ABG Base Excess 11.3 H ABG Hemoglobin 11.0 L ABG Oxyhemoglobin ABG Sodium ABG Potassium ABG Chloride ABG Glucose VBG pH Oxyhemoglobin Carboxyhemoglobin Sodium Potassium Chloride Carbon Dioxide BUN Creatinine Glucose POC Glucose 123 H 118 H Lactic Acid Calcium Phosphorus Magnesium Total Bilirubin AST ALT Ammonia Lactate Dehydrogenase Total Creatine Kinase CK-MB (CK-2) Troponin T NT-Pro-B Natriuret Pep Total Protein Albumin Triglycerides TSH Arterial Blood Glucose Arterial Blood Ionized Calcium Urine pH Urine WBC (Auto) Urine Creatinine 10/15/20 10/16/20 10/16/20 23:18 03:13 05:10 WBC RBC Hgb Hct RDW Lymph % (Auto) Bath % (Auto) Eos % (Auto) Lymph # (Auto) Bath # (Auto) Eos # (Auto) Seg Neutrophils % Lymphocytes % (Manual) Monocytes % (Manual) Seg Neutrophils # Seg Neutrophils # Man Lymphocytes # (Manual) Monocytes # (Manual) D-Dimer Heparin Anti-Xa Level ABG pH POC ABG pCO2 POC ABG pO2 ABG pO2 104.5 H ABG HCO3 35.1 H ABG O2 Saturation ABG Base Excess 9.5 H ABG Hemoglobin 7.9 L ABG Oxyhemoglobin ABG Sodium ABG Potassium ABG Chloride ABG Glucose VBG pH Oxyhemoglobin Carboxyhemoglobin Sodium Potassium 3.3 L Chloride Carbon Dioxide 33 H BUN 37 H Creatinine 1.4 H Glucose 148 H POC Glucose 135 H Lactic Acid Calcium Phosphorus Magnesium 2.40 H Total Bilirubin AST ALT Ammonia Lactate Dehydrogenase Total Creatine Kinase CK-MB (CK-2) Troponin T NT-Pro-B Natriuret Pep Total Protein Albumin Triglycerides TSH Arterial Blood Glucose Arterial Blood Ionized Calcium Urine pH Urine WBC (Auto) Urine Creatinine 10/16/20 10/16/20 10/16/20 06:36 11:08 17:07 WBC RBC Hgb Hct RDW Lymph % (Auto) Bath % (Auto) Eos % (Auto) Lymph # (Auto) Bath # (Auto) Eos # (Auto) Seg Neutrophils % Lymphocytes % (Manual) Monocytes % (Manual) Seg Neutrophils # Seg Neutrophils # Man Lymphocytes # (Manual) Monocytes # (Manual) D-Dimer Heparin Anti-Xa Level ABG pH POC ABG pCO2 POC ABG pO2 ABG pO2 ABG HCO3 ABG O2 Saturation ABG Base Excess ABG Hemoglobin ABG Oxyhemoglobin ABG Sodium ABG Potassium ABG Chloride ABG Glucose VBG pH Oxyhemoglobin Carboxyhemoglobin Sodium Potassium Chloride Carbon Dioxide BUN Creatinine Glucose POC Glucose 150 H 111 H 132 H Lactic Acid Calcium Phosphorus Magnesium Total Bilirubin AST ALT Ammonia Lactate Dehydrogenase Total Creatine Kinase CK-MB (CK-2) Troponin T NT-Pro-B Natriuret Pep Total Protein Albumin Triglycerides TSH Arterial Blood Glucose Arterial Blood Ionized Calcium Urine pH Urine WBC (Auto) Urine Creatinine 10/16/20 10/17/20 10/17/20 23:38 03:32 03:32 WBC RBC Hgb Hct RDW Lymph % (Auto) Bath % (Auto) Eos % (Auto) Lymph # (Auto) Bath # (Auto) Eos # (Auto) Seg Neutrophils % Lymphocytes % (Manual) Monocytes % (Manual) Seg Neutrophils # Seg Neutrophils # Man Lymphocytes # (Manual) Monocytes # (Manual) D-Dimer Heparin Anti-Xa Level ABG pH POC ABG pCO2 POC ABG pO2 ABG pO2 ABG HCO3 ABG O2 Saturation ABG Base Excess ABG Hemoglobin ABG Oxyhemoglobin ABG Sodium ABG Potassium ABG Chloride ABG Glucose VBG pH Oxyhemoglobin Carboxyhemoglobin Sodium 146 H Potassium Chloride Carbon Dioxide 32 H BUN 57 H Creatinine 2.4 H D Glucose 124 H POC Glucose 117 H Lactic Acid Calcium Phosphorus 5.20 H D Magnesium Total Bilirubin AST ALT Ammonia Lactate Dehydrogenase Total Creatine Kinase CK-MB (CK-2) Troponin T NT-Pro-B Natriuret Pep Total Protein Albumin Triglycerides TSH Arterial Blood Glucose Arterial Blood Ionized Calcium Urine pH Urine WBC (Auto) Urine Creatinine 10/17/20 10/17/20 10/18/20 05:10 17:33 00:13 WBC RBC Hgb Hct RDW Lymph % (Auto) Bath % (Auto) Eos % (Auto) Lymph # (Auto) Bath # (Auto) Eos # (Auto) Seg Neutrophils % Lymphocytes % (Manual) Monocytes % (Manual) Seg Neutrophils # Seg Neutrophils # Man Lymphocytes # (Manual) Monocytes # (Manual) D-Dimer Heparin Anti-Xa Level ABG pH POC ABG pCO2 POC ABG pO2 ABG pO2 ABG HCO3 ABG O2 Saturation ABG Base Excess ABG Hemoglobin ABG Oxyhemoglobin ABG Sodium ABG Potassium ABG Chloride ABG Glucose VBG pH Oxyhemoglobin Carboxyhemoglobin Sodium Potassium Chloride Carbon Dioxide BUN Creatinine Glucose POC Glucose 122 H 121 H 23 L Lactic Acid Calcium Phosphorus Magnesium Total Bilirubin AST ALT Ammonia Lactate Dehydrogenase Total Creatine Kinase CK-MB (CK-2) Troponin T NT-Pro-B Natriuret Pep Total Protein Albumin Triglycerides TSH Arterial Blood Glucose Arterial Blood Ionized Calcium Urine pH Urine WBC (Auto) Urine Creatinine 10/18/20 10/18/20 10/18/20 00:16 03:27 03:27 WBC RBC Hgb 11.7 L Hct RDW Lymph % (Auto) Bath % (Auto) Eos % (Auto) Lymph # (Auto) Bath # (Auto) Eos # (Auto) Seg Neutrophils % Lymphocytes % (Manual) Monocytes % (Manual) Seg Neutrophils # Seg Neutrophils # Man Lymphocytes # (Manual) Monocytes # (Manual) D-Dimer Heparin Anti-Xa Level ABG pH POC ABG pCO2 POC ABG pO2 ABG pO2 ABG HCO3 ABG O2 Saturation ABG Base Excess ABG Hemoglobin ABG Oxyhemoglobin ABG Sodium ABG Potassium ABG Chloride ABG Glucose VBG pH Oxyhemoglobin Carboxyhemoglobin Sodium Potassium Chloride 97.6 L Carbon Dioxide BUN 90 H Creatinine 3.3 H Glucose 146 H POC Glucose 134 H Lactic Acid Calcium Phosphorus Magnesium Total Bilirubin 1.70 H AST ALT Ammonia Lactate Dehydrogenase Total Creatine Kinase CK-MB (CK-2) Troponin T NT-Pro-B Natriuret Pep Total Protein Albumin 3.1 L Triglycerides TSH Arterial Blood Glucose Arterial Blood Ionized Calcium Urine pH Urine WBC (Auto) Urine Creatinine 10/18/20 10/18/20 10/18/20 05:09 11:19 17:15 WBC RBC Hgb Hct RDW Lymph % (Auto) Bath % (Auto) Eos % (Auto) Lymph # (Auto) Bath # (Auto) Eos # (Auto) Seg Neutrophils % Lymphocytes % (Manual) Monocytes % (Manual) Seg Neutrophils # Seg Neutrophils # Man Lymphocytes # (Manual) Monocytes # (Manual) D-Dimer Heparin Anti-Xa Level ABG pH POC ABG pCO2 POC ABG pO2 ABG pO2 ABG HCO3 ABG O2 Saturation ABG Base Excess ABG Hemoglobin ABG Oxyhemoglobin ABG Sodium ABG Potassium ABG Chloride ABG Glucose VBG pH Oxyhemoglobin Carboxyhemoglobin Sodium Potassium Chloride Carbon Dioxide BUN Creatinine Glucose POC Glucose 144 H 145 H 151 H Lactic Acid Calcium Phosphorus Magnesium Total Bilirubin AST ALT Ammonia Lactate Dehydrogenase Total Creatine Kinase CK-MB (CK-2) Troponin T NT-Pro-B Natriuret Pep Total Protein Albumin Triglycerides TSH Arterial Blood Glucose Arterial Blood Ionized Calcium Urine pH Urine WBC (Auto) Urine Creatinine 10/18/20 10/18/20 10/19/20 23:16 Unknown 04:55 WBC RBC Hgb Hct RDW Lymph % (Auto) Bath % (Auto) Eos % (Auto) Lymph # (Auto) Bath # (Auto) Eos # (Auto) Seg Neutrophils % Lymphocytes % (Manual) Monocytes % (Manual) Seg Neutrophils # Seg Neutrophils # Man Lymphocytes # (Manual) Monocytes # (Manual) D-Dimer Heparin Anti-Xa Level ABG pH POC ABG pCO2 POC ABG pO2 ABG pO2 ABG HCO3 ABG O2 Saturation ABG Base Excess ABG Hemoglobin ABG Oxyhemoglobin ABG Sodium ABG Potassium ABG Chloride ABG Glucose VBG pH Oxyhemoglobin Carboxyhemoglobin Sodium Potassium Chloride Carbon Dioxide BUN 104 H Creatinine 3.1 H Glucose 139 H POC Glucose 123 H Lactic Acid Calcium Phosphorus Magnesium Total Bilirubin AST ALT Ammonia Lactate Dehydrogenase Total Creatine Kinase CK-MB (CK-2) Troponin T NT-Pro-B Natriuret Pep Total Protein Albumin Triglycerides TSH Arterial Blood Glucose Arterial Blood Ionized Calcium Urine pH Urine WBC (Auto) 115.0 H Urine Creatinine 10/19/20 10/19/20 10/19/20 04:55 11:35 13:14 WBC 15.1 H RBC Hgb 11.1 L Hct 34.4 L RDW Lymph % (Auto) 4.2 L Bath % (Auto) 11.9 H Eos % (Auto) Lymph # (Auto) 0.6 L Bath # (Auto) 1.8 H Eos # (Auto) Seg Neutrophils % 82.0 H Lymphocytes % (Manual) Monocytes % (Manual) Seg Neutrophils # 12.4 H Seg Neutrophils # Man Lymphocytes # (Manual) Monocytes # (Manual) D-Dimer Heparin Anti-Xa Level ABG pH POC ABG pCO2 POC ABG pO2 ABG pO2 ABG HCO3 ABG O2 Saturation ABG Base Excess ABG Hemoglobin ABG Oxyhemoglobin ABG Sodium ABG Potassium ABG Chloride ABG Glucose VBG pH Oxyhemoglobin Carboxyhemoglobin Sodium Potassium Chloride Carbon Dioxide BUN Creatinine Glucose POC Glucose 136 H Lactic Acid Calcium Phosphorus Magnesium Total Bilirubin AST ALT Ammonia Lactate Dehydrogenase Total Creatine Kinase CK-MB (CK-2) Troponin T NT-Pro-B Natriuret Pep Total Protein Albumin Triglycerides TSH Arterial Blood Glucose Arterial Blood Ionized Calcium Urine pH Urine WBC (Auto) Urine Creatinine 93.7 H 10/19/20 10/19/20 10/20/20 17:53 23:39 04:30 WBC RBC Hgb Hct RDW Lymph % (Auto) Bath % (Auto) Eos % (Auto) Lymph # (Auto) Bath # (Auto) Eos # (Auto) Seg Neutrophils % Lymphocytes % (Manual) Monocytes % (Manual) Seg Neutrophils # Seg Neutrophils # Man Lymphocytes # (Manual) Monocytes # (Manual) D-Dimer Heparin Anti-Xa Level ABG pH POC ABG pCO2 POC ABG pO2 ABG pO2 ABG HCO3 ABG O2 Saturation ABG Base Excess ABG Hemoglobin ABG Oxyhemoglobin ABG Sodium ABG Potassium ABG Chloride ABG Glucose VBG pH Oxyhemoglobin Carboxyhemoglobin Sodium Potassium Chloride Carbon Dioxide BUN 104 H Creatinine 2.8 H Glucose 151 H POC Glucose 137 H 133 H Lactic Acid Calcium Phosphorus Magnesium Total Bilirubin AST ALT Ammonia Lactate Dehydrogenase Total Creatine Kinase CK-MB (CK-2) Troponin T NT-Pro-B Natriuret Pep Total Protein Albumin Triglycerides TSH Arterial Blood Glucose Arterial Blood Ionized Calcium Urine pH Urine WBC (Auto) Urine Creatinine 10/20/20 10/20/20 10/20/20 04:30 05:38 11:34 WBC 17.9 H RBC Hgb 11.7 L Hct RDW Lymph % (Auto) Bath % (Auto) Eos % (Auto) Lymph # (Auto) Bath # (Auto) Eos # (Auto) Seg Neutrophils % Lymphocytes % (Manual) Monocytes % (Manual) Seg Neutrophils # Seg Neutrophils # Man Lymphocytes # (Manual) Monocytes # (Manual) D-Dimer Heparin Anti-Xa Level ABG pH POC ABG pCO2 POC ABG pO2 ABG pO2 ABG HCO3 ABG O2 Saturation ABG Base Excess ABG Hemoglobin ABG Oxyhemoglobin ABG Sodium ABG Potassium ABG Chloride ABG Glucose VBG pH Oxyhemoglobin Carboxyhemoglobin Sodium Potassium Chloride Carbon Dioxide BUN Creatinine Glucose POC Glucose 164 H 148 H Lactic Acid Calcium Phosphorus Magnesium Total Bilirubin AST ALT Ammonia Lactate Dehydrogenase Total Creatine Kinase CK-MB (CK-2) Troponin T NT-Pro-B Natriuret Pep Total Protein Albumin Triglycerides TSH Arterial Blood Glucose Arterial Blood Ionized Calcium Urine pH Urine WBC (Auto) Urine Creatinine 10/20/20 10/20/20 10/20/20 17:40 20:20 23:29 WBC RBC Hgb Hct RDW Lymph % (Auto) Bath % (Auto) Eos % (Auto) Lymph # (Auto) Bath # (Auto) Eos # (Auto) Seg Neutrophils % Lymphocytes % (Manual) Monocytes % (Manual) Seg Neutrophils # Seg Neutrophils # Man Lymphocytes # (Manual) Monocytes # (Manual) D-Dimer Heparin Anti-Xa Level ABG pH 7.292 L POC ABG pCO2 68.5 H POC ABG pO2 ABG pO2 ABG HCO3 ABG O2 Saturation ABG Base Excess ABG Hemoglobin 11.6 L ABG Oxyhemoglobin ABG Sodium ABG Potassium ABG Chloride ABG Glucose 145 H VBG pH Oxyhemoglobin Carboxyhemoglobin Sodium Potassium Chloride Carbon Dioxide BUN Creatinine Glucose POC Glucose 130 H 136 H Lactic Acid Calcium Phosphorus Magnesium Total Bilirubin AST ALT Ammonia Lactate Dehydrogenase Total Creatine Kinase CK-MB (CK-2) Troponin T NT-Pro-B Natriuret Pep Total Protein Albumin Triglycerides TSH Arterial Blood Glucose 145 H Arterial Blood Ionized Calcium Urine pH Urine WBC (Auto) Urine Creatinine 10/21/20 10/21/20 10/21/20 04:20 06:26 06:30 WBC RBC Hgb Hct RDW Lymph % (Auto) Bath % (Auto) Eos % (Auto) Lymph # (Auto) Bath # (Auto) Eos # (Auto) Seg Neutrophils % Lymphocytes % (Manual) Monocytes % (Manual) Seg Neutrophils # Seg Neutrophils # Man Lymphocytes # (Manual) Monocytes # (Manual) D-Dimer Heparin Anti-Xa Level ABG pH 7.262 L POC ABG pCO2 72.4 H POC ABG pO2 81.6 L ABG pO2 ABG HCO3 ABG O2 Saturation ABG Base Excess ABG Hemoglobin 11.6 L ABG Oxyhemoglobin ABG Sodium ABG Potassium ABG Chloride ABG Glucose 140 H VBG pH Oxyhemoglobin Carboxyhemoglobin Sodium Potassium Chloride Carbon Dioxide 33 H BUN 104 H Creatinine 2.9 H Glucose 153 H POC Glucose 128 H Lactic Acid Calcium Phosphorus Magnesium Total Bilirubin AST ALT Ammonia Lactate Dehydrogenase Total Creatine Kinase CK-MB (CK-2) Troponin T NT-Pro-B Natriuret Pep Total Protein Albumin Triglycerides TSH Arterial Blood Glucose 140 H Arterial Blood Ionized Calcium Urine pH Urine WBC (Auto) Urine Creatinine 10/21/20 10/21/20 10/21/20 06:30 11:24 17:21 WBC 13.3 H RBC Hgb 10.7 L Hct 32.7 L RDW Lymph % (Auto) Bath % (Auto) Eos % (Auto) Lymph # (Auto) Bath # (Auto) Eos # (Auto) Seg Neutrophils % Lymphocytes % (Manual) Monocytes % (Manual) Seg Neutrophils # Seg Neutrophils # Man Lymphocytes # (Manual) Monocytes # (Manual) D-Dimer Heparin Anti-Xa Level ABG pH POC ABG pCO2 POC ABG pO2 ABG pO2 ABG HCO3 ABG O2 Saturation ABG Base Excess ABG Hemoglobin ABG Oxyhemoglobin ABG Sodium ABG Potassium ABG Chloride ABG Glucose VBG pH Oxyhemoglobin Carboxyhemoglobin Sodium Potassium Chloride Carbon Dioxide BUN Creatinine Glucose POC Glucose 178 H 138 H Lactic Acid Calcium Phosphorus Magnesium Total Bilirubin AST ALT Ammonia Lactate Dehydrogenase Total Creatine Kinase CK-MB (CK-2) Troponin T NT-Pro-B Natriuret Pep Total Protein Albumin Triglycerides TSH Arterial Blood Glucose Arterial Blood Ionized Calcium Urine pH Urine WBC (Auto) Urine Creatinine 10/22/20 10/22/20 10/22/20 00:05 04:30 06:15 WBC RBC Hgb Hct RDW Lymph % (Auto) Bath % (Auto) Eos % (Auto) Lymph # (Auto) Bath # (Auto) Eos # (Auto) Seg Neutrophils % Lymphocytes % (Manual) Monocytes % (Manual) Seg Neutrophils # Seg Neutrophils # Man Lymphocytes # (Manual) Monocytes # (Manual) D-Dimer Heparin Anti-Xa Level ABG pH 7.225 L POC ABG pCO2 76.6 H POC ABG pO2 ABG pO2 ABG HCO3 ABG O2 Saturation ABG Base Excess ABG Hemoglobin 11.1 L ABG Oxyhemoglobin ABG Sodium ABG Potassium ABG Chloride ABG Glucose 151 H VBG pH Oxyhemoglobin Carboxyhemoglobin Sodium Potassium Chloride Carbon Dioxide 32 H BUN 103 H Creatinine 2.7 H Glucose 151 H POC Glucose 135 H Lactic Acid Calcium Phosphorus Magnesium Total Bilirubin AST ALT Ammonia Lactate Dehydrogenase Total Creatine Kinase CK-MB (CK-2) Troponin T NT-Pro-B Natriuret Pep Total Protein Albumin Triglycerides TSH Arterial Blood Glucose 151 H Arterial Blood Ionized Calcium Urine pH Urine WBC (Auto) Urine Creatinine 10/22/20 10/22/20 10/22/20 06:18 11:34 11:44 WBC RBC Hgb Hct RDW Lymph % (Auto) Bath % (Auto) Eos % (Auto) Lymph # (Auto) Bath # (Auto) Eos # (Auto) Seg Neutrophils % Lymphocytes % (Manual) Monocytes % (Manual) Seg Neutrophils # Seg Neutrophils # Man Lymphocytes # (Manual) Monocytes # (Manual) D-Dimer Heparin Anti-Xa Level ABG pH 7.278 L POC ABG pCO2 67.8 H POC ABG pO2 ABG pO2 ABG HCO3 ABG O2 Saturation ABG Base Excess ABG Hemoglobin 10.2 L ABG Oxyhemoglobin ABG Sodium ABG Potassium ABG Chloride ABG Glucose 172 H VBG pH Oxyhemoglobin Carboxyhemoglobin Sodium Potassium Chloride Carbon Dioxide BUN Creatinine Glucose POC Glucose 137 H 147 H Lactic Acid Calcium Phosphorus Magnesium Total Bilirubin AST ALT Ammonia Lactate Dehydrogenase Total Creatine Kinase CK-MB (CK-2) Troponin T NT-Pro-B Natriuret Pep Total Protein Albumin Triglycerides TSH Arterial Blood Glucose 172 H Arterial Blood Ionized Calcium Urine pH Urine WBC (Auto) Urine Creatinine 10/22/20 10/22/20 10/23/20 17:40 23:55 05:11 WBC RBC Hgb Hct RDW Lymph % (Auto) Bath % (Auto) Eos % (Auto) Lymph # (Auto) Bath # (Auto) Eos # (Auto) Seg Neutrophils % Lymphocytes % (Manual) Monocytes % (Manual) Seg Neutrophils # Seg Neutrophils # Man Lymphocytes # (Manual) Monocytes # (Manual) D-Dimer Heparin Anti-Xa Level ABG pH POC ABG pCO2 63.6 H POC ABG pO2 81.2 L ABG pO2 ABG HCO3 ABG O2 Saturation ABG Base Excess ABG Hemoglobin 10.6 L ABG Oxyhemoglobin ABG Sodium ABG Potassium ABG Chloride 109.0 H ABG Glucose 149 H VBG pH Oxyhemoglobin Carboxyhemoglobin Sodium Potassium Chloride Carbon Dioxide BUN Creatinine Glucose POC Glucose 141 H 139 H Lactic Acid Calcium Phosphorus Magnesium Total Bilirubin AST ALT Ammonia Lactate Dehydrogenase Total Creatine Kinase CK-MB (CK-2) Troponin T NT-Pro-B Natriuret Pep Total Protein Albumin Triglycerides TSH Arterial Blood Glucose 149 H Arterial Blood Ionized Calcium Urine pH Urine WBC (Auto) Urine Creatinine 10/23/20 10/23/20 10/23/20 05:39 06:00 11:32 WBC RBC Hgb Hct RDW Lymph % (Auto) Bath % (Auto) Eos % (Auto) Lymph # (Auto) Bath # (Auto) Eos # (Auto) Seg Neutrophils % Lymphocytes % (Manual) Monocytes % (Manual) Seg Neutrophils # Seg Neutrophils # Man Lymphocytes # (Manual) Monocytes # (Manual) D-Dimer Heparin Anti-Xa Level ABG pH POC ABG pCO2 POC ABG pO2 ABG pO2 ABG HCO3 ABG O2 Saturation ABG Base Excess ABG Hemoglobin ABG Oxyhemoglobin ABG Sodium ABG Potassium ABG Chloride ABG Glucose VBG pH Oxyhemoglobin Carboxyhemoglobin Sodium 146 H Potassium Chloride Carbon Dioxide 35 H BUN 92 H Creatinine 2.0 H Glucose 144 H POC Glucose 139 H 176 H Lactic Acid Calcium Phosphorus Magnesium Total Bilirubin AST ALT Ammonia Lactate Dehydrogenase Total Creatine Kinase CK-MB (CK-2) Troponin T NT-Pro-B Natriuret Pep Total Protein Albumin Triglycerides TSH Arterial Blood Glucose Arterial Blood Ionized Calcium Urine pH Urine WBC (Auto) Urine Creatinine 10/23/20 10/23/20 10/24/20 11:34 17:55 05:33 WBC RBC Hgb Hct RDW Lymph % (Auto) Bath % (Auto) Eos % (Auto) Lymph # (Auto) Bath # (Auto) Eos # (Auto) Seg Neutrophils % Lymphocytes % (Manual) Monocytes % (Manual) Seg Neutrophils # Seg Neutrophils # Man Lymphocytes # (Manual) Monocytes # (Manual) D-Dimer Heparin Anti-Xa Level ABG pH POC ABG pCO2 POC ABG pO2 ABG pO2 ABG HCO3 ABG O2 Saturation ABG Base Excess ABG Hemoglobin ABG Oxyhemoglobin ABG Sodium ABG Potassium ABG Chloride ABG Glucose VBG pH Oxyhemoglobin Carboxyhemoglobin Sodium 147 H Potassium Chloride Carbon Dioxide 32 H BUN 76 H Creatinine 1.7 H Glucose 172 H POC Glucose 173 H 135 H Lactic Acid Calcium Phosphorus Magnesium Total Bilirubin AST ALT Ammonia Lactate Dehydrogenase Total Creatine Kinase CK-MB (CK-2) Troponin T NT-Pro-B Natriuret Pep Total Protein Albumin Triglycerides TSH Arterial Blood Glucose Arterial Blood Ionized Calcium Urine pH Urine WBC (Auto) Urine Creatinine 10/24/20 10/24/20 10/24/20 05:41 12:09 18:09 WBC RBC Hgb Hct RDW Lymph % (Auto) Bath % (Auto) Eos % (Auto) Lymph # (Auto) Bath # (Auto) Eos # (Auto) Seg Neutrophils % Lymphocytes % (Manual) Monocytes % (Manual) Seg Neutrophils # Seg Neutrophils # Man Lymphocytes # (Manual) Monocytes # (Manual) D-Dimer Heparin Anti-Xa Level ABG pH POC ABG pCO2 POC ABG pO2 ABG pO2 ABG HCO3 ABG O2 Saturation ABG Base Excess ABG Hemoglobin ABG Oxyhemoglobin ABG Sodium ABG Potassium ABG Chloride ABG Glucose VBG pH Oxyhemoglobin Carboxyhemoglobin Sodium Potassium Chloride Carbon Dioxide BUN Creatinine Glucose POC Glucose 156 H 154 H 132 H Lactic Acid Calcium Phosphorus Magnesium Total Bilirubin AST ALT Ammonia Lactate Dehydrogenase Total Creatine Kinase CK-MB (CK-2) Troponin T NT-Pro-B Natriuret Pep Total Protein Albumin Triglycerides TSH Arterial Blood Glucose Arterial Blood Ionized Calcium Urine pH Urine WBC (Auto) Urine Creatinine 10/24/20 10/25/20 10/25/20 23:39 05:29 08:55 WBC RBC Hgb Hct RDW Lymph % (Auto) Bath % (Auto) Eos % (Auto) Lymph # (Auto) Bath # (Auto) Eos # (Auto) Seg Neutrophils % Lymphocytes % (Manual) Monocytes % (Manual) Seg Neutrophils # Seg Neutrophils # Man Lymphocytes # (Manual) Monocytes # (Manual) D-Dimer Heparin Anti-Xa Level ABG pH POC ABG pCO2 POC ABG pO2 ABG pO2 ABG HCO3 ABG O2 Saturation ABG Base Excess ABG Hemoglobin ABG Oxyhemoglobin ABG Sodium ABG Potassium ABG Chloride ABG Glucose VBG pH Oxyhemoglobin Carboxyhemoglobin Sodium 150 H Potassium Chloride 108.3 H Carbon Dioxide 32 H BUN 57 H Creatinine 1.5 H Glucose 142 H POC Glucose 131 H 142 H Lactic Acid Calcium Phosphorus Magnesium Total Bilirubin AST ALT Ammonia Lactate Dehydrogenase Total Creatine Kinase CK-MB (CK-2) Troponin T NT-Pro-B Natriuret Pep Total Protein Albumin Triglycerides TSH Arterial Blood Glucose Arterial Blood Ionized Calcium Urine pH Urine WBC (Auto) Urine Creatinine 10/25/20 10/25/20 10/25/20 08:55 11:08 18:10 WBC 14.3 H RBC 3.57 L Hgb 10.3 L Hct 31.6 L RDW Lymph % (Auto) Bath % (Auto) Eos % (Auto) Lymph # (Auto) Bath # (Auto) Eos # (Auto) Seg Neutrophils % Lymphocytes % (Manual) Monocytes % (Manual) Seg Neutrophils # Seg Neutrophils # Man Lymphocytes # (Manual) Monocytes # (Manual) D-Dimer Heparin Anti-Xa Level ABG pH POC ABG pCO2 52.3 H POC ABG pO2 ABG pO2 ABG HCO3 ABG O2 Saturation ABG Base Excess ABG Hemoglobin 11.2 L ABG Oxyhemoglobin ABG Sodium ABG Potassium ABG Chloride 108.0 H ABG Glucose 167 H VBG pH Oxyhemoglobin Carboxyhemoglobin Sodium Potassium Chloride Carbon Dioxide BUN Creatinine Glucose POC Glucose 157 H Lactic Acid Calcium Phosphorus Magnesium Total Bilirubin AST ALT Ammonia Lactate Dehydrogenase Total Creatine Kinase CK-MB (CK-2) Troponin T NT-Pro-B Natriuret Pep Total Protein Albumin Triglycerides TSH Arterial Blood Glucose 167 H Arterial Blood Ionized Calcium Urine pH Urine WBC (Auto) Urine Creatinine 10/25/20 10/26/20 10/26/20 18:20 00:20 06:08 WBC RBC Hgb Hct RDW Lymph % (Auto) Bath % (Auto) Eos % (Auto) Lymph # (Auto) Bath # (Auto) Eos # (Auto) Seg Neutrophils % Lymphocytes % (Manual) Monocytes % (Manual) Seg Neutrophils # Seg Neutrophils # Man Lymphocytes # (Manual) Monocytes # (Manual) D-Dimer Heparin Anti-Xa Level ABG pH POC ABG pCO2 POC ABG pO2 ABG pO2 ABG HCO3 ABG O2 Saturation ABG Base Excess ABG Hemoglobin ABG Oxyhemoglobin ABG Sodium ABG Potassium ABG Chloride ABG Glucose VBG pH Oxyhemoglobin Carboxyhemoglobin Sodium Potassium Chloride Carbon Dioxide BUN Creatinine Glucose POC Glucose 127 H 108 H 119 H Lactic Acid Calcium Phosphorus Magnesium Total Bilirubin AST ALT Ammonia Lactate Dehydrogenase Total Creatine Kinase CK-MB (CK-2) Troponin T NT-Pro-B Natriuret Pep Total Protein Albumin Triglycerides TSH Arterial Blood Glucose Arterial Blood Ionized Calcium Urine pH Urine WBC (Auto) Urine Creatinine 10/26/20 10/26/20 10/26/20 07:38 07:38 11:28 WBC 13.5 H RBC 3.37 L Hgb 9.8 L Hct 30.0 L RDW Lymph % (Auto) Bath % (Auto) Eos % (Auto) Lymph # (Auto) Bath # (Auto) Eos # (Auto) Seg Neutrophils % Lymphocytes % (Manual) Monocytes % (Manual) Seg Neutrophils # Seg Neutrophils # Man Lymphocytes # (Manual) Monocytes # (Manual) D-Dimer Heparin Anti-Xa Level ABG pH POC ABG pCO2 POC ABG pO2 ABG pO2 ABG HCO3 ABG O2 Saturation ABG Base Excess ABG Hemoglobin ABG Oxyhemoglobin ABG Sodium ABG Potassium ABG Chloride ABG Glucose VBG pH Oxyhemoglobin Carboxyhemoglobin Sodium 149 H Potassium Chloride 107.6 H Carbon Dioxide 34 H BUN 49 H Creatinine 1.4 H Glucose 137 H POC Glucose 148 H Lactic Acid Calcium Phosphorus Magnesium Total Bilirubin AST ALT Ammonia Lactate Dehydrogenase Total Creatine Kinase CK-MB (CK-2) Troponin T NT-Pro-B Natriuret Pep Total Protein Albumin Triglycerides TSH Arterial Blood Glucose Arterial Blood Ionized Calcium Urine pH Urine WBC (Auto) Urine Creatinine 10/26/20 10/26/20 10/27/20 18:17 23:37 05:08 WBC RBC Hgb Hct RDW Lymph % (Auto) Bath % (Auto) Eos % (Auto) Lymph # (Auto) Bath # (Auto) Eos # (Auto) Seg Neutrophils % Lymphocytes % (Manual) Monocytes % (Manual) Seg Neutrophils # Seg Neutrophils # Man Lymphocytes # (Manual) Monocytes # (Manual) D-Dimer Heparin Anti-Xa Level ABG pH POC ABG pCO2 POC ABG pO2 ABG pO2 ABG HCO3 ABG O2 Saturation ABG Base Excess ABG Hemoglobin ABG Oxyhemoglobin ABG Sodium ABG Potassium ABG Chloride ABG Glucose VBG pH Oxyhemoglobin Carboxyhemoglobin Sodium Potassium Chloride Carbon Dioxide BUN Creatinine Glucose POC Glucose 121 H 152 H 120 H Lactic Acid Calcium Phosphorus Magnesium Total Bilirubin AST ALT Ammonia Lactate Dehydrogenase Total Creatine Kinase CK-MB (CK-2) Troponin T NT-Pro-B Natriuret Pep Total Protein Albumin Triglycerides TSH Arterial Blood Glucose Arterial Blood Ionized Calcium Urine pH Urine WBC (Auto) Urine Creatinine 10/27/20 10/27/20 10/27/20 07:30 07:30 11:59 WBC RBC 3.46 L Hgb 10.2 L Hct 30.9 L RDW Lymph % (Auto) Bath % (Auto) Eos % (Auto) Lymph # (Auto) Bath # (Auto) Eos # (Auto) Seg Neutrophils % Lymphocytes % (Manual) Monocytes % (Manual) Seg Neutrophils # Seg Neutrophils # Man Lymphocytes # (Manual) Monocytes # (Manual) D-Dimer Heparin Anti-Xa Level ABG pH POC ABG pCO2 POC ABG pO2 ABG pO2 ABG HCO3 ABG O2 Saturation ABG Base Excess ABG Hemoglobin ABG Oxyhemoglobin ABG Sodium ABG Potassium ABG Chloride ABG Glucose VBG pH Oxyhemoglobin Carboxyhemoglobin Sodium 146 H Potassium Chloride Carbon Dioxide 34 H BUN 45 H Creatinine Glucose 131 H POC Glucose 143 H Lactic Acid Calcium Phosphorus Magnesium Total Bilirubin AST ALT Ammonia Lactate Dehydrogenase Total Creatine Kinase CK-MB (CK-2) Troponin T NT-Pro-B Natriuret Pep Total Protein Albumin Triglycerides TSH Arterial Blood Glucose Arterial Blood Ionized Calcium Urine pH Urine WBC (Auto) Urine Creatinine 10/27/20 10/27/20 10/28/20 18:52 23:03 07:00 WBC RBC Hgb Hct RDW Lymph % (Auto) Bath % (Auto) Eos % (Auto) Lymph # (Auto) Bath # (Auto) Eos # (Auto) Seg Neutrophils % Lymphocytes % (Manual) Monocytes % (Manual) Seg Neutrophils # Seg Neutrophils # Man Lymphocytes # (Manual) Monocytes # (Manual) D-Dimer Heparin Anti-Xa Level ABG pH POC ABG pCO2 POC ABG pO2 ABG pO2 ABG HCO3 ABG O2 Saturation ABG Base Excess ABG Hemoglobin ABG Oxyhemoglobin ABG Sodium ABG Potassium ABG Chloride ABG Glucose VBG pH Oxyhemoglobin Carboxyhemoglobin Sodium 147 H Potassium Chloride Carbon Dioxide 35 H BUN 39 H Creatinine Glucose 133 H POC Glucose 119 H 158 H Lactic Acid Calcium Phosphorus Magnesium Total Bilirubin AST ALT Ammonia Lactate Dehydrogenase Total Creatine Kinase CK-MB (CK-2) Troponin T NT-Pro-B Natriuret Pep Total Protein Albumin Triglycerides TSH Arterial Blood Glucose Arterial Blood Ionized Calcium Urine pH Urine WBC (Auto) Urine Creatinine 10/28/20 10/28/20 10/28/20 09:00 11:47 17:15 WBC 12.5 H RBC 3.58 L Hgb 10.5 L Hct 32.1 L RDW Lymph % (Auto) Bath % (Auto) Eos % (Auto) Lymph # (Auto) Bath # (Auto) Eos # (Auto) Seg Neutrophils % Lymphocytes % (Manual) Monocytes % (Manual) Seg Neutrophils # Seg Neutrophils # Man Lymphocytes # (Manual) Monocytes # (Manual) D-Dimer Heparin Anti-Xa Level ABG pH POC ABG pCO2 POC ABG pO2 ABG pO2 ABG HCO3 ABG O2 Saturation ABG Base Excess ABG Hemoglobin ABG Oxyhemoglobin ABG Sodium ABG Potassium ABG Chloride ABG Glucose VBG pH Oxyhemoglobin Carboxyhemoglobin Sodium Potassium Chloride Carbon Dioxide BUN Creatinine Glucose POC Glucose 129 H 109 H Lactic Acid Calcium Phosphorus Magnesium Total Bilirubin AST ALT Ammonia Lactate Dehydrogenase Total Creatine Kinase CK-MB (CK-2) Troponin T NT-Pro-B Natriuret Pep Total Protein Albumin Triglycerides TSH Arterial Blood Glucose Arterial Blood Ionized Calcium Urine pH Urine WBC (Auto) Urine Creatinine 10/28/20 10/29/20 10/29/20 23:31 04:23 04:23 WBC 13.6 H RBC 3.47 L Hgb 10.5 L Hct 30.7 L RDW 15.4 H Lymph % (Auto) Bath % (Auto) Eos % (Auto) Lymph # (Auto) Bath # (Auto) Eos # (Auto) Seg Neutrophils % Lymphocytes % (Manual) Monocytes % (Manual) Seg Neutrophils # Seg Neutrophils # Man Lymphocytes # (Manual) Monocytes # (Manual) D-Dimer Heparin Anti-Xa Level ABG pH POC ABG pCO2 POC ABG pO2 ABG pO2 ABG HCO3 ABG O2 Saturation ABG Base Excess ABG Hemoglobin ABG Oxyhemoglobin ABG Sodium ABG Potassium ABG Chloride ABG Glucose VBG pH Oxyhemoglobin Carboxyhemoglobin Sodium Potassium Chloride Carbon Dioxide 35 H BUN 34 H Creatinine Glucose 107 H POC Glucose 138 H Lactic Acid Calcium Phosphorus Magnesium Total Bilirubin AST ALT Ammonia Lactate Dehydrogenase Total Creatine Kinase CK-MB (CK-2) Troponin T NT-Pro-B Natriuret Pep Total Protein Albumin Triglycerides TSH Arterial Blood Glucose Arterial Blood Ionized Calcium Urine pH Urine WBC (Auto) Urine Creatinine 10/29/20 10/29/20 10/29/20 05:21 11:49 23:19 WBC RBC Hgb Hct RDW Lymph % (Auto) Bath % (Auto) Eos % (Auto) Lymph # (Auto) Bath # (Auto) Eos # (Auto) Seg Neutrophils % Lymphocytes % (Manual) Monocytes % (Manual) Seg Neutrophils # Seg Neutrophils # Man Lymphocytes # (Manual) Monocytes # (Manual) D-Dimer Heparin Anti-Xa Level ABG pH POC ABG pCO2 POC ABG pO2 ABG pO2 ABG HCO3 ABG O2 Saturation ABG Base Excess ABG Hemoglobin ABG Oxyhemoglobin ABG Sodium ABG Potassium ABG Chloride ABG Glucose VBG pH Oxyhemoglobin Carboxyhemoglobin Sodium Potassium Chloride Carbon Dioxide BUN Creatinine Glucose POC Glucose 115 H 124 H 129 H Lactic Acid Calcium Phosphorus Magnesium Total Bilirubin AST ALT Ammonia Lactate Dehydrogenase Total Creatine Kinase CK-MB (CK-2) Troponin T NT-Pro-B Natriuret Pep Total Protein Albumin Triglycerides TSH Arterial Blood Glucose Arterial Blood Ionized Calcium Urine pH Urine WBC (Auto) Urine Creatinine 10/30/20 10/30/20 10/30/20 04:59 05:10 11:52 WBC RBC Hgb Hct RDW Lymph % (Auto) Bath % (Auto) Eos % (Auto) Lymph # (Auto) Bath # (Auto) Eos # (Auto) Seg Neutrophils % Lymphocytes % (Manual) Monocytes % (Manual) Seg Neutrophils # Seg Neutrophils # Man Lymphocytes # (Manual) Monocytes # (Manual) D-Dimer Heparin Anti-Xa Level ABG pH POC ABG pCO2 POC ABG pO2 ABG pO2 ABG HCO3 ABG O2 Saturation ABG Base Excess ABG Hemoglobin ABG Oxyhemoglobin ABG Sodium ABG Potassium ABG Chloride ABG Glucose VBG pH Oxyhemoglobin Carboxyhemoglobin Sodium Potassium Chloride Carbon Dioxide 34 H BUN 33 H Creatinine Glucose 128 H POC Glucose 126 H 132 H Lactic Acid Calcium Phosphorus Magnesium Total Bilirubin AST ALT Ammonia Lactate Dehydrogenase Total Creatine Kinase CK-MB (CK-2) Troponin T NT-Pro-B Natriuret Pep Total Protein Albumin Triglycerides TSH Arterial Blood Glucose Arterial Blood Ionized Calcium Urine pH Urine WBC (Auto) Urine Creatinine 10/30/20 10/30/20 10/31/20 16:59 23:19 04:00 WBC RBC Hgb Hct RDW Lymph % (Auto) Bath % (Auto) Eos % (Auto) Lymph # (Auto) Bath # (Auto) Eos # (Auto) Seg Neutrophils % Lymphocytes % (Manual) Monocytes % (Manual) Seg Neutrophils # Seg Neutrophils # Man Lymphocytes # (Manual) Monocytes # (Manual) D-Dimer Heparin Anti-Xa Level ABG pH POC ABG pCO2 POC ABG pO2 ABG pO2 ABG HCO3 ABG O2 Saturation ABG Base Excess ABG Hemoglobin ABG Oxyhemoglobin ABG Sodium ABG Potassium ABG Chloride ABG Glucose VBG pH Oxyhemoglobin Carboxyhemoglobin Sodium Potassium Chloride Carbon Dioxide 38 H BUN 32 H Creatinine Glucose 121 H POC Glucose 118 H 138 H Lactic Acid Calcium Phosphorus Magnesium Total Bilirubin AST ALT Ammonia Lactate Dehydrogenase Total Creatine Kinase CK-MB (CK-2) Troponin T NT-Pro-B Natriuret Pep Total Protein Albumin Triglycerides TSH Arterial Blood Glucose Arterial Blood Ionized Calcium Urine pH Urine WBC (Auto) Urine Creatinine 10/31/20 10/31/20 10/31/20 05:13 11:09 16:17 WBC RBC Hgb Hct RDW Lymph % (Auto) Bath % (Auto) Eos % (Auto) Lymph # (Auto) Bath # (Auto) Eos # (Auto) Seg Neutrophils % Lymphocytes % (Manual) Monocytes % (Manual) Seg Neutrophils # Seg Neutrophils # Man Lymphocytes # (Manual) Monocytes # (Manual) D-Dimer Heparin Anti-Xa Level ABG pH POC ABG pCO2 71.1 H POC ABG pO2 67.4 L ABG pO2 ABG HCO3 ABG O2 Saturation ABG Base Excess ABG Hemoglobin 10.9 L ABG Oxyhemoglobin 90.7 L ABG Sodium ABG Potassium ABG Chloride ABG Glucose 134 H VBG pH Oxyhemoglobin Carboxyhemoglobin Sodium Potassium Chloride Carbon Dioxide BUN Creatinine Glucose POC Glucose 110 H 138 H Lactic Acid Calcium Phosphorus Magnesium Total Bilirubin AST ALT Ammonia Lactate Dehydrogenase Total Creatine Kinase CK-MB (CK-2) Troponin T NT-Pro-B Natriuret Pep Total Protein Albumin Triglycerides TSH Arterial Blood Glucose 134 H Arterial Blood Ionized Calcium Urine pH Urine WBC (Auto) Urine Creatinine 10/31/20 10/31/20 11/01/20 18:16 23:56 04:09 WBC 11.3 H RBC 3.05 L Hgb 9.0 L Hct 27.3 L RDW Lymph % (Auto) Bath % (Auto) Eos % (Auto) Lymph # (Auto) Bath # (Auto) Eos # (Auto) Seg Neutrophils % Lymphocytes % (Manual) Monocytes % (Manual) Seg Neutrophils # Seg Neutrophils # Man Lymphocytes # (Manual) Monocytes # (Manual) D-Dimer Heparin Anti-Xa Level ABG pH POC ABG pCO2 POC ABG pO2 ABG pO2 ABG HCO3 ABG O2 Saturation ABG Base Excess ABG Hemoglobin ABG Oxyhemoglobin ABG Sodium ABG Potassium ABG Chloride ABG Glucose VBG pH Oxyhemoglobin Carboxyhemoglobin Sodium Potassium Chloride Carbon Dioxide BUN Creatinine Glucose POC Glucose 135 H 122 H Lactic Acid Calcium Phosphorus Magnesium Total Bilirubin AST ALT Ammonia Lactate Dehydrogenase Total Creatine Kinase CK-MB (CK-2) Troponin T NT-Pro-B Natriuret Pep Total Protein Albumin Triglycerides TSH Arterial Blood Glucose Arterial Blood Ionized Calcium Urine pH Urine WBC (Auto) Urine Creatinine 11/01/20 11/01/20 11/01/20 05:10 11:51 17:17 WBC RBC Hgb Hct RDW Lymph % (Auto) Bath % (Auto) Eos % (Auto) Lymph # (Auto) Bath # (Auto) Eos # (Auto) Seg Neutrophils % Lymphocytes % (Manual) Monocytes % (Manual) Seg Neutrophils # Seg Neutrophils # Man Lymphocytes # (Manual) Monocytes # (Manual) D-Dimer Heparin Anti-Xa Level ABG pH POC ABG pCO2 POC ABG pO2 ABG pO2 ABG HCO3 ABG O2 Saturation ABG Base Excess ABG Hemoglobin ABG Oxyhemoglobin ABG Sodium ABG Potassium ABG Chloride ABG Glucose VBG pH Oxyhemoglobin Carboxyhemoglobin Sodium Potassium Chloride Carbon Dioxide BUN Creatinine Glucose POC Glucose 123 H 123 H 120 H Lactic Acid Calcium Phosphorus Magnesium Total Bilirubin AST ALT Ammonia Lactate Dehydrogenase Total Creatine Kinase CK-MB (CK-2) Troponin T NT-Pro-B Natriuret Pep Total Protein Albumin Triglycerides TSH Arterial Blood Glucose Arterial Blood Ionized Calcium Urine pH Urine WBC (Auto) Urine Creatinine 11/02/20 11/02/20 11/02/20 03:14 05:37 05:37 WBC RBC Hgb 9.8 L Hct 29.5 L RDW Lymph % (Auto) Bath % (Auto) Eos % (Auto) Lymph # (Auto) Bath # (Auto) Eos # (Auto) Seg Neutrophils % Lymphocytes % (Manual) Monocytes % (Manual) Seg Neutrophils # Seg Neutrophils # Man Lymphocytes # (Manual) Monocytes # (Manual) D-Dimer Heparin Anti-Xa Level ABG pH POC ABG pCO2 58.9 H POC ABG pO2 79.9 L ABG pO2 ABG HCO3 ABG O2 Saturation ABG Base Excess ABG Hemoglobin 10.6 L ABG Oxyhemoglobin ABG Sodium ABG Potassium ABG Chloride ABG Glucose 110 H VBG pH Oxyhemoglobin Carboxyhemoglobin Sodium Potassium Chloride Carbon Dioxide 37 H BUN 28 H Creatinine Glucose 106 H POC Glucose Lactic Acid Calcium Phosphorus Magnesium Total Bilirubin AST ALT Ammonia Lactate Dehydrogenase Total Creatine Kinase CK-MB (CK-2) Troponin T NT-Pro-B Natriuret Pep Total Protein Albumin Triglycerides TSH Arterial Blood Glucose 110 H Arterial Blood Ionized Calcium Urine pH Urine WBC (Auto) Urine Creatinine 11/02/20 11/03/20 11/03/20 23:29 04:45 04:45 WBC 11.8 H RBC 3.07 L Hgb 9.0 L Hct 27.2 L RDW Lymph % (Auto) 11.4 L Bath % (Auto) 9.5 H Eos % (Auto) Lymph # (Auto) Bath # (Auto) 1.1 H Eos # (Auto) Seg Neutrophils % 75.9 H Lymphocytes % (Manual) Monocytes % (Manual) Seg Neutrophils # 9.0 H Seg Neutrophils # Man Lymphocytes # (Manual) Monocytes # (Manual) D-Dimer Heparin Anti-Xa Level ABG pH POC ABG pCO2 POC ABG pO2 ABG pO2 ABG HCO3 ABG O2 Saturation ABG Base Excess ABG Hemoglobin ABG Oxyhemoglobin ABG Sodium ABG Potassium ABG Chloride ABG Glucose VBG pH Oxyhemoglobin Carboxyhemoglobin Sodium 146 H Potassium Chloride Carbon Dioxide 39 H BUN 26 H Creatinine Glucose POC Glucose 129 H Lactic Acid Calcium Phosphorus Magnesium Total Bilirubin AST ALT Ammonia Lactate Dehydrogenase Total Creatine Kinase CK-MB (CK-2) Troponin T NT-Pro-B Natriuret Pep Total Protein Albumin Triglycerides TSH Arterial Blood Glucose Arterial Blood Ionized Calcium Urine pH Urine WBC (Auto) Urine Creatinine 11/03/20 11/03/20 11/03/20 05:05 11:51 17:43 WBC RBC Hgb Hct RDW Lymph % (Auto) Bath % (Auto) Eos % (Auto) Lymph # (Auto) Bath # (Auto) Eos # (Auto) Seg Neutrophils % Lymphocytes % (Manual) Monocytes % (Manual) Seg Neutrophils # Seg Neutrophils # Man Lymphocytes # (Manual) Monocytes # (Manual) D-Dimer Heparin Anti-Xa Level ABG pH 7.452 H POC ABG pCO2 55.4 H POC ABG pO2 129.1 H ABG pO2 ABG HCO3 ABG O2 Saturation ABG Base Excess ABG Hemoglobin 9.3 L ABG Oxyhemoglobin ABG Sodium ABG Potassium ABG Chloride ABG Glucose 99 H VBG pH Oxyhemoglobin Carboxyhemoglobin 1.7 H Sodium Potassium Chloride Carbon Dioxide BUN Creatinine Glucose POC Glucose 131 H 125 H Lactic Acid Calcium Phosphorus Magnesium Total Bilirubin AST ALT Ammonia Lactate Dehydrogenase Total Creatine Kinase CK-MB (CK-2) Troponin T NT-Pro-B Natriuret Pep Total Protein Albumin Triglycerides TSH Arterial Blood Glucose 99 H Arterial Blood Ionized Calcium Urine pH Urine WBC (Auto) Urine Creatinine 11/03/20 11/04/20 11/04/20 23:27 04:00 05:10 WBC RBC Hgb Hct RDW Lymph % (Auto) Bath % (Auto) Eos % (Auto) Lymph # (Auto) Bath # (Auto) Eos # (Auto) Seg Neutrophils % Lymphocytes % (Manual) Monocytes % (Manual) Seg Neutrophils # Seg Neutrophils # Man Lymphocytes # (Manual) Monocytes # (Manual) D-Dimer Heparin Anti-Xa Level ABG pH POC ABG pCO2 POC ABG pO2 ABG pO2 ABG HCO3 ABG O2 Saturation ABG Base Excess ABG Hemoglobin ABG Oxyhemoglobin ABG Sodium ABG Potassium ABG Chloride ABG Glucose VBG pH Oxyhemoglobin Carboxyhemoglobin Sodium Potassium Chloride 95.2 L Carbon Dioxide 40 H BUN 26 H Creatinine Glucose 128 H POC Glucose 148 H 126 H Lactic Acid Calcium Phosphorus Magnesium Total Bilirubin AST ALT Ammonia Lactate Dehydrogenase Total Creatine Kinase CK-MB (CK-2) Troponin T NT-Pro-B Natriuret Pep Total Protein Albumin Triglycerides TSH Arterial Blood Glucose Arterial Blood Ionized Calcium Urine pH Urine WBC (Auto) Urine Creatinine 11/04/20 11/04/20 11/04/20 11:39 18:00 21:18 WBC RBC Hgb Hct RDW Lymph % (Auto) Bath % (Auto) Eos % (Auto) Lymph # (Auto) Bath # (Auto) Eos # (Auto) Seg Neutrophils % Lymphocytes % (Manual) Monocytes % (Manual) Seg Neutrophils # Seg Neutrophils # Man Lymphocytes # (Manual) Monocytes # (Manual) D-Dimer Heparin Anti-Xa Level ABG pH 7.511 H POC ABG pCO2 49.0 H POC ABG pO2 ABG pO2 ABG HCO3 ABG O2 Saturation ABG Base Excess ABG Hemoglobin 9.5 L ABG Oxyhemoglobin ABG Sodium 135.7 L ABG Potassium ABG Chloride ABG Glucose 152 H VBG pH Oxyhemoglobin Carboxyhemoglobin Sodium Potassium Chloride Carbon Dioxide BUN Creatinine Glucose POC Glucose 142 H 130 H Lactic Acid Calcium Phosphorus Magnesium Total Bilirubin AST ALT Ammonia Lactate Dehydrogenase Total Creatine Kinase CK-MB (CK-2) Troponin T NT-Pro-B Natriuret Pep Total Protein Albumin Triglycerides TSH Arterial Blood Glucose 152 H Arterial Blood Ionized Calcium 4.3 L Urine pH Urine WBC (Auto) Urine Creatinine 11/04/20 11/05/20 11/05/20 23:19 03:30 03:30 WBC RBC 3.02 L Hgb 9.1 L Hct 26.7 L RDW Lymph % (Auto) Bath % (Auto) Eos % (Auto) Lymph # (Auto) Bath # (Auto) Eos # (Auto) Seg Neutrophils % Lymphocytes % (Manual) Monocytes % (Manual) Seg Neutrophils # Seg Neutrophils # Man Lymphocytes # (Manual) Monocytes # (Manual) D-Dimer Heparin Anti-Xa Level ABG pH POC ABG pCO2 POC ABG pO2 ABG pO2 ABG HCO3 ABG O2 Saturation ABG Base Excess ABG Hemoglobin ABG Oxyhemoglobin ABG Sodium ABG Potassium ABG Chloride ABG Glucose VBG pH Oxyhemoglobin Carboxyhemoglobin Sodium Potassium Chloride 93.6 L Carbon Dioxide 40 H BUN 24 H Creatinine Glucose 121 H POC Glucose 126 H Lactic Acid Calcium Phosphorus Magnesium Total Bilirubin AST ALT Ammonia Lactate Dehydrogenase Total Creatine Kinase CK-MB (CK-2) Troponin T NT-Pro-B Natriuret Pep Total Protein Albumin Triglycerides TSH Arterial Blood Glucose Arterial Blood Ionized Calcium Urine pH Urine WBC (Auto) Urine Creatinine 11/05/20 11/05/20 11/05/20 05:24 11:37 17:37 WBC RBC Hgb Hct RDW Lymph % (Auto) Bath % (Auto) Eos % (Auto) Lymph # (Auto) Bath # (Auto) Eos # (Auto) Seg Neutrophils % Lymphocytes % (Manual) Monocytes % (Manual) Seg Neutrophils # Seg Neutrophils # Man Lymphocytes # (Manual) Monocytes # (Manual) D-Dimer Heparin Anti-Xa Level ABG pH POC ABG pCO2 POC ABG pO2 ABG pO2 ABG HCO3 ABG O2 Saturation ABG Base Excess ABG Hemoglobin ABG Oxyhemoglobin ABG Sodium ABG Potassium ABG Chloride ABG Glucose VBG pH Oxyhemoglobin Carboxyhemoglobin Sodium Potassium Chloride Carbon Dioxide BUN Creatinine Glucose POC Glucose 124 H 125 H 153 H Lactic Acid Calcium Phosphorus Magnesium Total Bilirubin AST ALT Ammonia Lactate Dehydrogenase Total Creatine Kinase CK-MB (CK-2) Troponin T NT-Pro-B Natriuret Pep Total Protein Albumin Triglycerides TSH Arterial Blood Glucose Arterial Blood Ionized Calcium Urine pH Urine WBC (Auto) Urine Creatinine 11/05/20 11/06/20 11/06/20 23:20 05:24 12:17 WBC RBC Hgb Hct RDW Lymph % (Auto) Bath % (Auto) Eos % (Auto) Lymph # (Auto) Bath # (Auto) Eos # (Auto) Seg Neutrophils % Lymphocytes % (Manual) Monocytes % (Manual) Seg Neutrophils # Seg Neutrophils # Man Lymphocytes # (Manual) Monocytes # (Manual) D-Dimer Heparin Anti-Xa Level ABG pH POC ABG pCO2 POC ABG pO2 ABG pO2 ABG HCO3 ABG O2 Saturation ABG Base Excess ABG Hemoglobin ABG Oxyhemoglobin ABG Sodium ABG Potassium ABG Chloride ABG Glucose VBG pH Oxyhemoglobin Carboxyhemoglobin Sodium Potassium Chloride Carbon Dioxide BUN Creatinine Glucose POC Glucose 133 H 143 H 139 H Lactic Acid Calcium Phosphorus Magnesium Total Bilirubin AST ALT Ammonia Lactate Dehydrogenase Total Creatine Kinase CK-MB (CK-2) Troponin T NT-Pro-B Natriuret Pep Total Protein Albumin Triglycerides TSH Arterial Blood Glucose Arterial Blood Ionized Calcium Urine pH Urine WBC (Auto) Urine Creatinine 11/06/20 11/06/20 11/07/20 17:38 23:26 04:50 WBC RBC 3.24 L Hgb 9.6 L Hct 29.0 L RDW Lymph % (Auto) Bath % (Auto) 10.3 H Eos % (Auto) 6.9 H Lymph # (Auto) Bath # (Auto) Eos # (Auto) 0.5 H Seg Neutrophils % Lymphocytes % (Manual) Monocytes % (Manual) Seg Neutrophils # Seg Neutrophils # Man Lymphocytes # (Manual) Monocytes # (Manual) D-Dimer Heparin Anti-Xa Level ABG pH POC ABG pCO2 POC ABG pO2 ABG pO2 ABG HCO3 ABG O2 Saturation ABG Base Excess ABG Hemoglobin ABG Oxyhemoglobin ABG Sodium ABG Potassium ABG Chloride ABG Glucose VBG pH Oxyhemoglobin Carboxyhemoglobin Sodium Potassium Chloride Carbon Dioxide BUN Creatinine Glucose POC Glucose 139 H 117 H Lactic Acid Calcium Phosphorus Magnesium Total Bilirubin AST ALT Ammonia Lactate Dehydrogenase Total Creatine Kinase CK-MB (CK-2) Troponin T NT-Pro-B Natriuret Pep Total Protein Albumin Triglycerides TSH Arterial Blood Glucose Arterial Blood Ionized Calcium Urine pH Urine WBC (Auto) Urine Creatinine 11/07/20 11/07/20 11/07/20 04:50 05:10 12:22 WBC RBC Hgb Hct RDW Lymph % (Auto) Bath % (Auto) Eos % (Auto) Lymph # (Auto) Bath # (Auto) Eos # (Auto) Seg Neutrophils % Lymphocytes % (Manual) Monocytes % (Manual) Seg Neutrophils # Seg Neutrophils # Man Lymphocytes # (Manual) Monocytes # (Manual) D-Dimer Heparin Anti-Xa Level ABG pH POC ABG pCO2 POC ABG pO2 ABG pO2 ABG HCO3 ABG O2 Saturation ABG Base Excess ABG Hemoglobin ABG Oxyhemoglobin ABG Sodium ABG Potassium ABG Chloride ABG Glucose VBG pH Oxyhemoglobin Carboxyhemoglobin Sodium Potassium Chloride 97.2 L Carbon Dioxide 36 H BUN 25 H Creatinine Glucose 130 H POC Glucose 115 H 118 H Lactic Acid Calcium Phosphorus Magnesium Total Bilirubin AST ALT Ammonia Lactate Dehydrogenase Total Creatine Kinase CK-MB (CK-2) Troponin T NT-Pro-B Natriuret Pep Total Protein Albumin Triglycerides TSH Arterial Blood Glucose Arterial Blood Ionized Calcium Urine pH Urine WBC (Auto) Urine Creatinine 11/07/20 11/07/20 11/08/20 17:46 23:53 07:16 WBC RBC Hgb Hct RDW Lymph % (Auto) Bath % (Auto) Eos % (Auto) Lymph # (Auto) Bath # (Auto) Eos # (Auto) Seg Neutrophils % Lymphocytes % (Manual) Monocytes % (Manual) Seg Neutrophils # Seg Neutrophils # Man Lymphocytes # (Manual) Monocytes # (Manual) D-Dimer Heparin Anti-Xa Level ABG pH POC ABG pCO2 POC ABG pO2 ABG pO2 ABG HCO3 ABG O2 Saturation ABG Base Excess ABG Hemoglobin ABG Oxyhemoglobin ABG Sodium ABG Potassium ABG Chloride ABG Glucose VBG pH Oxyhemoglobin Carboxyhemoglobin Sodium Potassium Chloride Carbon Dioxide BUN Creatinine Glucose POC Glucose 150 H 141 H 134 H Lactic Acid Calcium Phosphorus Magnesium Total Bilirubin AST ALT Ammonia Lactate Dehydrogenase Total Creatine Kinase CK-MB (CK-2) Troponin T NT-Pro-B Natriuret Pep Total Protein Albumin Triglycerides TSH Arterial Blood Glucose Arterial Blood Ionized Calcium Urine pH Urine WBC (Auto) Urine Creatinine 11/08/20 11/08/20 11/08/20 11:35 17:59 23:50 WBC RBC Hgb Hct RDW Lymph % (Auto) Bath % (Auto) Eos % (Auto) Lymph # (Auto) Bath # (Auto) Eos # (Auto) Seg Neutrophils % Lymphocytes % (Manual) Monocytes % (Manual) Seg Neutrophils # Seg Neutrophils # Man Lymphocytes # (Manual) Monocytes # (Manual) D-Dimer Heparin Anti-Xa Level ABG pH POC ABG pCO2 POC ABG pO2 ABG pO2 ABG HCO3 ABG O2 Saturation ABG Base Excess ABG Hemoglobin ABG Oxyhemoglobin ABG Sodium ABG Potassium ABG Chloride ABG Glucose VBG pH Oxyhemoglobin Carboxyhemoglobin Sodium Potassium Chloride Carbon Dioxide BUN Creatinine Glucose POC Glucose 148 H 118 H 131 H Lactic Acid Calcium Phosphorus Magnesium Total Bilirubin AST ALT Ammonia Lactate Dehydrogenase Total Creatine Kinase CK-MB (CK-2) Troponin T NT-Pro-B Natriuret Pep Total Protein Albumin Triglycerides TSH Arterial Blood Glucose Arterial Blood Ionized Calcium Urine pH Urine WBC (Auto) Urine Creatinine 11/09/20 11/09/20 11/09/20 12:07 17:00 23:45 WBC RBC Hgb Hct RDW Lymph % (Auto) Bath % (Auto) Eos % (Auto) Lymph # (Auto) Bath # (Auto) Eos # (Auto) Seg Neutrophils % Lymphocytes % (Manual) Monocytes % (Manual) Seg Neutrophils # Seg Neutrophils # Man Lymphocytes # (Manual) Monocytes # (Manual) D-Dimer Heparin Anti-Xa Level ABG pH POC ABG pCO2 POC ABG pO2 ABG pO2 ABG HCO3 ABG O2 Saturation ABG Base Excess ABG Hemoglobin ABG Oxyhemoglobin ABG Sodium ABG Potassium ABG Chloride ABG Glucose VBG pH Oxyhemoglobin Carboxyhemoglobin Sodium Potassium Chloride Carbon Dioxide BUN Creatinine Glucose POC Glucose 133 H 126 H 129 H Lactic Acid Calcium Phosphorus Magnesium Total Bilirubin AST ALT Ammonia Lactate Dehydrogenase Total Creatine Kinase CK-MB (CK-2) Troponin T NT-Pro-B Natriuret Pep Total Protein Albumin Triglycerides TSH Arterial Blood Glucose Arterial Blood Ionized Calcium Urine pH Urine WBC (Auto) Urine Creatinine 11/10/20 11/10/20 11/10/20 05:43 11:47 17:56 WBC RBC Hgb Hct RDW Lymph % (Auto) Bath % (Auto) Eos % (Auto) Lymph # (Auto) Bath # (Auto) Eos # (Auto) Seg Neutrophils % Lymphocytes % (Manual) Monocytes % (Manual) Seg Neutrophils # Seg Neutrophils # Man Lymphocytes # (Manual) Monocytes # (Manual) D-Dimer Heparin Anti-Xa Level ABG pH POC ABG pCO2 POC ABG pO2 ABG pO2 ABG HCO3 ABG O2 Saturation ABG Base Excess ABG Hemoglobin ABG Oxyhemoglobin ABG Sodium ABG Potassium ABG Chloride ABG Glucose VBG pH Oxyhemoglobin Carboxyhemoglobin Sodium Potassium Chloride Carbon Dioxide BUN Creatinine Glucose POC Glucose 111 H 136 H 110 H Lactic Acid Calcium Phosphorus Magnesium Total Bilirubin AST ALT Ammonia Lactate Dehydrogenase Total Creatine Kinase CK-MB (CK-2) Troponin T NT-Pro-B Natriuret Pep Total Protein Albumin Triglycerides TSH Arterial Blood Glucose Arterial Blood Ionized Calcium Urine pH Urine WBC (Auto) Urine Creatinine 11/10/20 11/11/20 11/11/20 23:34 03:11 05:22 WBC RBC Hgb Hct RDW Lymph % (Auto) Bath % (Auto) Eos % (Auto) Lymph # (Auto) Bath # (Auto) Eos # (Auto) Seg Neutrophils % Lymphocytes % (Manual) Monocytes % (Manual) Seg Neutrophils # Seg Neutrophils # Man Lymphocytes # (Manual) Monocytes # (Manual) D-Dimer Heparin Anti-Xa Level ABG pH POC ABG pCO2 64.5 H POC ABG pO2 ABG pO2 ABG HCO3 ABG O2 Saturation ABG Base Excess ABG Hemoglobin 9.7 L ABG Oxyhemoglobin ABG Sodium ABG Potassium 5.0 H ABG Chloride ABG Glucose 148 H VBG pH Oxyhemoglobin Carboxyhemoglobin Sodium Potassium Chloride Carbon Dioxide BUN Creatinine Glucose POC Glucose 134 H 132 H Lactic Acid Calcium Phosphorus Magnesium Total Bilirubin AST ALT Ammonia Lactate Dehydrogenase Total Creatine Kinase CK-MB (CK-2) Troponin T NT-Pro-B Natriuret Pep Total Protein Albumin Triglycerides TSH Arterial Blood Glucose 148 H Arterial Blood Ionized Calcium Urine pH Urine WBC (Auto) Urine Creatinine 11/11/20 11/11/20 11/11/20 08:38 11:00 12:01 WBC RBC 2.79 L Hgb 8.4 L Hct 25.4 L RDW Lymph % (Auto) Bath % (Auto) Eos % (Auto) Lymph # (Auto) Bath # (Auto) Eos # (Auto) Seg Neutrophils % Lymphocytes % (Manual) Monocytes % (Manual) Seg Neutrophils # Seg Neutrophils # Man Lymphocytes # (Manual) Monocytes # (Manual) D-Dimer Heparin Anti-Xa Level ABG pH POC ABG pCO2 POC ABG pO2 ABG pO2 ABG HCO3 ABG O2 Saturation ABG Base Excess ABG Hemoglobin ABG Oxyhemoglobin ABG Sodium ABG Potassium ABG Chloride ABG Glucose VBG pH Oxyhemoglobin Carboxyhemoglobin Sodium 136 L Potassium Chloride 97.6 L Carbon Dioxide 35 H BUN 26 H Creatinine Glucose 133 H POC Glucose 142 H Lactic Acid Calcium 8.0 L Phosphorus Magnesium Total Bilirubin AST ALT Ammonia Lactate Dehydrogenase Total Creatine Kinase CK-MB (CK-2) Troponin T NT-Pro-B Natriuret Pep Total Protein Albumin Triglycerides TSH Arterial Blood Glucose Arterial Blood Ionized Calcium Urine pH Urine WBC (Auto) Urine Creatinine 11/11/20 11/12/20 11/12/20 23:12 05:31 07:41 WBC RBC Hgb Hct RDW Lymph % (Auto) Bath % (Auto) Eos % (Auto) Lymph # (Auto) Bath # (Auto) Eos # (Auto) Seg Neutrophils % Lymphocytes % (Manual) Monocytes % (Manual) Seg Neutrophils # Seg Neutrophils # Man Lymphocytes # (Manual) Monocytes # (Manual) D-Dimer Heparin Anti-Xa Level ABG pH POC ABG pCO2 POC ABG pO2 ABG pO2 ABG HCO3 ABG O2 Saturation ABG Base Excess ABG Hemoglobin ABG Oxyhemoglobin ABG Sodium ABG Potassium ABG Chloride ABG Glucose VBG pH Oxyhemoglobin Carboxyhemoglobin Sodium Potassium Chloride Carbon Dioxide BUN Creatinine Glucose POC Glucose 127 H 117 H 137 H Lactic Acid Calcium Phosphorus Magnesium Total Bilirubin AST ALT Ammonia Lactate Dehydrogenase Total Creatine Kinase CK-MB (CK-2) Troponin T NT-Pro-B Natriuret Pep Total Protein Albumin Triglycerides TSH Arterial Blood Glucose Arterial Blood Ionized Calcium Urine pH Urine WBC (Auto) Urine Creatinine 11/12/20 11/12/20 11/12/20 11:26 15:29 21:30 WBC RBC Hgb Hct RDW Lymph % (Auto) Bath % (Auto) Eos % (Auto) Lymph # (Auto) Bath # (Auto) Eos # (Auto) Seg Neutrophils % Lymphocytes % (Manual) Monocytes % (Manual) Seg Neutrophils # Seg Neutrophils # Man Lymphocytes # (Manual) Monocytes # (Manual) D-Dimer Heparin Anti-Xa Level ABG pH POC ABG pCO2 POC ABG pO2 ABG pO2 ABG HCO3 ABG O2 Saturation ABG Base Excess ABG Hemoglobin ABG Oxyhemoglobin ABG Sodium ABG Potassium ABG Chloride ABG Glucose VBG pH Oxyhemoglobin Carboxyhemoglobin Sodium Potassium Chloride Carbon Dioxide BUN Creatinine Glucose POC Glucose 130 H 146 H 123 H Lactic Acid Calcium Phosphorus Magnesium Total Bilirubin AST ALT Ammonia Lactate Dehydrogenase Total Creatine Kinase CK-MB (CK-2) Troponin T NT-Pro-B Natriuret Pep Total Protein Albumin Triglycerides TSH Arterial Blood Glucose Arterial Blood Ionized Calcium Urine pH Urine WBC (Auto) Urine Creatinine 11/13/20 11/13/20 11/13/20 05:52 07:37 15:34 WBC RBC Hgb Hct RDW Lymph % (Auto) Bath % (Auto) Eos % (Auto) Lymph # (Auto) Bath # (Auto) Eos # (Auto) Seg Neutrophils % Lymphocytes % (Manual) Monocytes % (Manual) Seg Neutrophils # Seg Neutrophils # Man Lymphocytes # (Manual) Monocytes # (Manual) D-Dimer Heparin Anti-Xa Level ABG pH POC ABG pCO2 POC ABG pO2 ABG pO2 ABG HCO3 ABG O2 Saturation ABG Base Excess ABG Hemoglobin ABG Oxyhemoglobin ABG Sodium ABG Potassium ABG Chloride ABG Glucose VBG pH Oxyhemoglobin Carboxyhemoglobin Sodium Potassium Chloride Carbon Dioxide BUN Creatinine Glucose POC Glucose 142 H 109 H 127 H Lactic Acid Calcium Phosphorus Magnesium Total Bilirubin AST ALT Ammonia Lactate Dehydrogenase Total Creatine Kinase CK-MB (CK-2) Troponin T NT-Pro-B Natriuret Pep Total Protein Albumin Triglycerides TSH Arterial Blood Glucose Arterial Blood Ionized Calcium Urine pH Urine WBC (Auto) Urine Creatinine 11/13/20 11/13/20 11/13/20 16:43 16:52 21:18 WBC RBC Hgb Hct RDW Lymph % (Auto) Bath % (Auto) Eos % (Auto) Lymph # (Auto) Bath # (Auto) Eos # (Auto) Seg Neutrophils % Lymphocytes % (Manual) Monocytes % (Manual) Seg Neutrophils # Seg Neutrophils # Man Lymphocytes # (Manual) Monocytes # (Manual) D-Dimer Heparin Anti-Xa Level ABG pH POC ABG pCO2 68.4 H POC ABG pO2 ABG pO2 ABG HCO3 ABG O2 Saturation ABG Base Excess ABG Hemoglobin 10.0 L ABG Oxyhemoglobin ABG Sodium ABG Potassium ABG Chloride ABG Glucose 133 H VBG pH Oxyhemoglobin Carboxyhemoglobin Sodium Potassium Chloride Carbon Dioxide BUN Creatinine Glucose POC Glucose 111 H 108 H Lactic Acid Calcium Phosphorus Magnesium Total Bilirubin AST ALT Ammonia Lactate Dehydrogenase Total Creatine Kinase CK-MB (CK-2) Troponin T NT-Pro-B Natriuret Pep Total Protein Albumin Triglycerides TSH Arterial Blood Glucose 133 H Arterial Blood Ionized Calcium Urine pH Urine WBC (Auto) Urine Creatinine 11/14/20 12:07 WBC RBC Hgb Hct RDW Lymph % (Auto) Bath % (Auto) Eos % (Auto) Lymph # (Auto) Bath # (Auto) Eos # (Auto) Seg Neutrophils % Lymphocytes % (Manual) Monocytes % (Manual) Seg Neutrophils # Seg Neutrophils # Man Lymphocytes # (Manual) Monocytes # (Manual) D-Dimer Heparin Anti-Xa Level ABG pH POC ABG pCO2 POC ABG pO2 ABG pO2 ABG HCO3 ABG O2 Saturation ABG Base Excess ABG Hemoglobin ABG Oxyhemoglobin ABG Sodium ABG Potassium ABG Chloride ABG Glucose VBG pH Oxyhemoglobin Carboxyhemoglobin Sodium Potassium Chloride Carbon Dioxide BUN Creatinine Glucose POC Glucose 107 H Lactic Acid Calcium Phosphorus Magnesium Total Bilirubin AST ALT Ammonia Lactate Dehydrogenase Total Creatine Kinase CK-MB (CK-2) Troponin T NT-Pro-B Natriuret Pep Total Protein Albumin Triglycerides TSH Arterial Blood Glucose Arterial Blood Ionized Calcium Urine pH Urine WBC (Auto) Urine Creatinine Chest x-ray: report reviewed, image reviewed Additional Studies: 11/12/20 CHEST 1 VIEW INDICATION: aspiration COMPARISON: 11/04/2020 FINDINGS: Support devices: Unchanged. Heart: Stable. Lungs/Pleura: Mild, diffuse pulmonary disease, more suggestive of pulmonary edema rather than focal aspiration. IMPRESSION: 1. Mild, diffuse disease, suggesting pulmonary edema. Allied health notes reviewed: nursing
[2020-11-14] MEDS: QUEtiapine 200 MG TAB PO SCH (22:20)
[2020-11-15] MEDS: ACETAMINOPHEN 325 MG TAB PO PRN (05:39)
[2020-11-15] MEDS: hydrALAZINE 100 MG TAB PO SCH ×3 (05:39→22:02)
[2020-11-15] MEDS: GLYCOPYRROLATE 1 MG TAB PO SCH ×3 (05:40→22:02)
[2020-11-15] MEDS: LANSOPRAZOLE 30 MG SOLUTAB FEEDTUBE SCH ×2 (09:25→22:02)
[2020-11-15] MEDS: DOCUSATE SODIUM 100 MG/10 ML ORAL LIQD PO SCH ×2 (09:25→22:01)
[2020-11-15] MEDS: HEPARIN 5,000 UNIT/1 ML VIAL SUB-Q SCH ×2 (09:25→22:02)
[2020-11-15] MEDS: METOPROLOL TARTRATE 50 MG TAB PO SCH ×3 (09:26→22:01)
[2020-11-15] MEDS: amLODIPine 10 MG TAB PO SCH (09:26)
[2020-11-15] MEDS: QUEtiapine 25 MG TAB PO SCH (09:26)
[2020-11-15] MEDS: QUEtiapine 100 MG TAB PO SCH (09:26)
[2020-11-15] MEDS: levETIRAcetam 500 MG/5 ML ORAL LIQD PO SCH ×2 (09:27→22:02)
[2020-11-15] MEDS: POLYETHYLENE GLYCOL 3350 17 GM POWDER PO SCH (09:27)
--- NOTE | 2020-11-15 10:21 | Progress Note ---
Assessment and Plan [id number] -[place] male with history of hypertension and asthma and obesity who became unresponsive after COVID-19 vaccination. Patient was brought to the ED and coded twice. Patient resuscitated and placed on mechanical ventila tion. Patient subsequently had tracheostomy. Patient weaned from ventilator. Patient presently on T-tube. Patient not responding to verbal stimuli. Presently resting on trach collar. FiO2 35%. O2 saturation running 100%. No acute respiratory distress. Patient running a low grade temperature. No leukocytosis. Chest X-ray done 11/12/20. Reported mild, diffuse disease, suggesting pulmonary edema. Patient presently on s/c heparin, prevacid, and albuterol. Called the patients , it went to the voice mail. - Patient Problems (1) Acute respiratory failure with hypoxia and hypercarbia Current Visit: Yes Status: Acute Plan to address problem: Patient presently on T-tube. FiO2 35%. O2 saturation 100%. Continue albuterol aerosol treatments. Respiratory suctioning as needed. Continue s/c heparin. Continue prevacid. (2) Bilateral pneumonia Current Visit: Yes Status: Acute Plan to address problem: Pneumonia is improved. Repeat chest x-ray on 11/12/20. Reported mild, diffuse disease, suggesting pulmonary edema. Patient afebrile, no leukocytosis. (3) Cardiopulmonary arrest with successful resuscitation Current Visit: Yes Status: Acute Plan to address problem: Patient successfully resuscitated. Presently resting on T-tube. (4) MOE (acute kidney injury) Current Visit: Yes Status: Acute Plan to address problem: Management per Neprology. (5) Accelerated hypertension Current Visit: Yes Status: Acute Plan to address problem: Management per primary care. (6) Acute heart failure with preserved ejection fraction (HFpEF) Current Visit: Yes Status: Acute Plan to address problem: Management per cardiology. (7) Atrial fibrillation and flutter Current Visit: Yes Status: Acute Plan to address problem: Management per cardiology. (8) GI bleed Current Visit: Yes Status: Acute Plan to address problem: Management per GI. (9) Hypotension Current Visit: Yes Status: Acute Plan to address problem: Improved. Today's BP is 155/84 (10) NSTEMI (non-ST elevated myocardial infarction) Current Visit: Yes Status: Acute Plan to address problem: Management per cardiology. (11) Seizure Current Visit: Yes Status: Acute Plan to address problem: Management per primary care and Neurology. Subjective Date of service: 11/15/20 Principal diagnosis: Cardiac arrest; Septic Shock; Ac. hypoxemic & hypercapnic resp failure; MOE Interval history: 55-year-old -[place] male with history of hypertension and asthma and obesity who became unresponsive after COVID-19 vaccination. Patient was brought to the ED and coded twice. Patient resuscitated and placed on mechanical ventilation. Patient subsequently had tracheostomy. Patient weaned from v entilator. Patient presently on T-tube. Patient not responding to verbal stimuli. Presently resting on trach collar. FiO2 35%. O2 saturation running 100%. No acute respiratory distress. Patient running a low grade temperature. No leukocytosis. Chest X-ray done 11/12/20. Reported mild, diffuse disease, suggesting pulmonary edema. Patient presently on s/c heparin, prevacid, and albuterol. Called the patients , it went to the voice mail. Objective Vital Signs - 12hr 11/14/20 11/14/20 11/15/20 22:37 23:34 02:30 Temperature 100.2 F H Pulse Rate 112 H 101 H Respiratory 24 Rate Blood Pressure 118/102 152/79 O2 Sat by Pulse 94 Oximetry O2 Sat by Pulse 99 Oximetry [ Assessment] 11/15/20 11/15/20 11/15/20 03:43 07:49 07:59 Temperature 99.9 F H 98.7 F Pulse Rate 94 H 97 H Respiratory 22 20 Rate Blood Pressure 161/79 191/90 O2 Sat by Pulse 96 99 Oximetry O2 Sat by Pulse Oximetry [ Assessment] 11/15/20 11/15/20 09:43 10:00 Temperature Pulse Rate 86 Respiratory Rate Blood Pressure O2 Sat by Pulse Oximetry O2 Sat by Pulse 95 Oximetry [ Assessment] Constitutional: no acute distress, asleep Eyes: non-icteric ENT: oropharynx moist, oropharyngeal exudate pre (thick), other (midline tracheostomy) Neck: supple, no lymphadenopathy, no JVD Effort: mildly labored Ascultation: Bilateral: diminished breath sounds, rhonchi (scant) Percussion: Bilateral: not dull Cardiovascular: regular rate and rhythm, other (S1,S2) Gastrointestinal: normoactive bowel sounds, soft, non-tender, non-distended (protuberant) Integumentary: normal Extremities: no cyanosis, no edema, pulses normal, no ischemia or petechiae Neurologic: pupils equal and round, unable to assess, other (encephalopathic) Psychiatric: other (unable to assess re: AMS) CBC and BMP: 11/11/20 11:00 11/11/20 08:38 ABG, PT/INR, D-dimer: ABG ABG pH 7.374 (7.320-7.450) 11/13/20 16:43 POC ABG pCO2 68.4 mmHg (32.0-48.0) H 11/13/20 16:43 ABG pCO2 55.5 mm Hg 10/16/20 05:10 POC ABG pO2 101.9 mmHg (83-108) 11/13/20 16:43 ABG pO2 104.5 mm Hg (80.0-90.0) H 10/16/20 05:10 POC ABG HCO3 39.0 11/13/20 16:43 ABG O2 Saturation 97.8 (0-100) 11/13/20 16:43 PT/INR, D-dimer PT 13.5 Sec. (12.2-14.9) 10/28/20 07:00 INR 1.05 (0.87-1.13) 10/28/20 07:00 D-Dimer 679.5 ng/mlDDU (0-234) H 10/10/20 10:48 Abnormal lab findings: Abnormal Labs 10/10/20 10/10/20 10/10/20 10:46 10:46 10:46 WBC RBC Hgb Hct RDW Lymph % (Auto) Johnson % (Auto) Eos % (Auto) Lymph # (Auto) Johnson # (Auto) Eos # (Auto) Seg Neutrophils % Lymphocytes % (Manual) Monocytes % (Manual) Seg Neutrophils # Seg Neutrophils # Man Lymphocytes # (Manual) Monocytes # (Manual) D-Dimer Heparin Anti-Xa Level ABG pH POC ABG pCO2 POC ABG pO2 ABG pO2 ABG HCO3 ABG O2 Saturation ABG Base Excess ABG Hemoglobin ABG Oxyhemoglobin ABG Sodium ABG Potassium ABG Chloride ABG Glucose VBG pH Oxyhemoglobin Carboxyhemoglobin Sodium Potassium Chloride Carbon Dioxide BUN Creatinine Glucose POC Glucose Lactic Acid 13.60 H* Calcium Phosphorus Magnesium Total Bilirubin AST ALT Ammonia 214.0 H Lactate Dehydrogenase Total Creatine Kinase CK-MB (CK-2) Troponin T NT-Pro-B Natriuret Pep Total Protein Albumin Triglycerides TSH 6.260 H Arterial Blood Glucose Arterial Blood Ionized Calcium Urine pH Urine WBC (Auto) Urine Creatinine 10/10/20 10/10/20 10/10/20 10:46 10:48 10:48 WBC RBC 5.28 H Hgb 15.5 H Hct 48.8 H RDW Lymph % (Auto) Johnson % (Auto) Eos % (Auto) Lymph # (Auto) Johnson # (Auto) Eos # (Auto) Seg Neutrophils % Lymphocytes % (Manual) 42.0 H Monocytes % (Manual) Seg Neutrophils # Seg Neutrophils # Man Lymphocytes # (Manual) Monocytes # (Manual) D-Dimer Heparin Anti-Xa Level ABG pH POC ABG pCO2 POC ABG pO2 ABG pO2 ABG HCO3 ABG O2 Saturation ABG Base Excess ABG Hemoglobin ABG Oxyhemoglobin ABG Sodium ABG Potassium ABG Chloride ABG Glucose VBG pH Oxyhemoglobin Carboxyhemoglobin Sodium Potassium 3.3 L Chloride 91.2 L Carbon Dioxide BUN Creatinine 1.8 H Glucose 231 H POC Glucose Lactic Acid Calcium Phosphorus Magnesium Total Bilirubin AST 60 H ALT 57 H Ammonia Lactate Dehydrogenase Total Creatine Kinase CK-MB (CK-2) Troponin T NT-Pro-B Natriuret Pep 1187 H Total Protein 9.0 H Albumin Triglycerides TSH Arterial Blood Glucose Arterial Blood Ionized Calcium Urine pH Urine WBC (Auto) Urine Creatinine 10/10/20 10/10/20 10/10/20 10:48 10:48 10:48 WBC RBC Hgb Hct RDW Lymph % (Auto) Johnson % (Auto) Eos % (Auto) Lymph # (Auto) Johnson # (Auto) Eos # (Auto) Seg Neutrophils % Lymphocytes % (Manual) Monocytes % (Manual) Seg Neutrophils # Seg Neutrophils # Man Lymphocytes # (Manual) Monocytes # (Manual) D-Dimer 679.5 H Heparin Anti-Xa Level ABG pH POC ABG pCO2 POC ABG pO2 ABG pO2 ABG HCO3 ABG O2 Saturation ABG Base Excess ABG Hemoglobin ABG Oxyhemoglobin ABG Sodium ABG Potassium ABG Chloride ABG Glucose VBG pH 6.870 L* Oxyhemoglobin Carboxyhemoglobin Sodium Potassium Chloride Carbon Dioxide BUN Creatinine Glucose POC Glucose Lactic Acid Calcium Phosphorus Magnesium Total Bilirubin AST ALT Ammonia Lactate Dehydrogenase 386 H Total Creatine Kinase CK-MB (CK-2) Troponin T NT-Pro-B Natriuret Pep Total Protein Albumin Triglycerides TSH Arterial Blood Glucose Arterial Blood Ionized Calcium Urine pH Urine WBC (Auto) Urine Creatinine 10/10/20 10/10/20 10/10/20 14:10 14:20 15:50 WBC RBC Hgb Hct RDW Lymph % (Auto) Johnson % (Auto) Eos % (Auto) Lymph # (Auto) Johnson # (Auto) Eos # (Auto) Seg Neutrophils % Lymphocytes % (Manual) Monocytes % (Manual) Seg Neutrophils # Seg Neutrophils # Man Lymphocytes # (Manual) Monocytes # (Manual) D-Dimer Heparin Anti-Xa Level ABG pH 7.175 L 7.247 L POC ABG pCO2 85.0 H POC ABG pO2 43.7 L ABG pO2 60.3 L ABG HCO3 32.0 H ABG O2 Saturation 86.1 L ABG Base Excess ABG Hemoglobin ABG Oxyhemoglobin 67.7 L ABG Sodium ABG Potassium ABG Chloride ABG Glucose 247 H VBG pH Oxyhemoglobin 84.4 L Carboxyhemoglobin Sodium Potassium Chloride Carbon Dioxide BUN Creatinine Glucose POC Glucose Lactic Acid 4.00 H* Calcium Phosphorus Magnesium Total Bilirubin AST ALT Ammonia Lactate Dehydrogenase Total Creatine Kinase CK-MB (CK-2) Troponin T NT-Pro-B Natriuret Pep Total Protein Albumin Triglycerides TSH Arterial Blood Glucose 247 H Arterial Blood Ionized Calcium 4.4 L Urine pH Urine WBC (Auto) Urine Creatinine 10/10/20 10/10/20 10/10/20 15:50 16:22 18:18 WBC RBC Hgb Hct RDW Lymph % (Auto) Johnson % (Auto) Eos % (Auto) Lymph # (Auto) Johnson # (Auto) Eos # (Auto) Seg Neutrophils % Lymphocytes % (Manual) Monocytes % (Manual) Seg Neutrophils # Seg Neutrophils # Man Lymphocytes # (Manual) Monocytes # (Manual) D-Dimer Heparin Anti-Xa Level ABG pH 7.171 L POC ABG pCO2 96.6 H POC ABG pO2 55.3 L ABG pO2 ABG HCO3 ABG O2 Saturation ABG Base Excess ABG Hemoglobin ABG Oxyhemoglobin 81.4 L ABG Sodium ABG Potassium ABG Chloride ABG Glucose 115 H VBG pH Oxyhemoglobin Carboxyhemoglobin Sodium Potassium Chloride Carbon Dioxide BUN Creatinine Glucose POC Glucose 132 H Lactic Acid Calcium Phosphorus Magnesium Total Bilirubin AST ALT Ammonia Lactate Dehydrogenase Total Creatine Kinase 1192 H CK-MB (CK-2) 21.7 H Troponin T 0.377 H* D NT-Pro-B Natriuret Pep Total Protein Albumin Triglycerides TSH Arterial Blood Glucose 115 H Arterial Blood Ionized Calcium Urine pH Urine WBC (Auto) Urine Creatinine 10/10/20 10/10/20 10/10/20 18:18 18:18 22:49 WBC 23.0 H RBC 5.12 H Hgb Hct RDW Lymph % (Auto) Johnson % (Auto) Eos % (Auto) Lymph # (Auto) Johnson # (Auto) Eos # (Auto) Seg Neutrophils % Lymphocytes % (Manual) 4.0 L Monocytes % (Manual) 9.0 H Seg Neutrophils # Seg Neutrophils # Man 13.8 H Lymphocytes # (Manual) 0.9 L Monocytes # (Manual) 2.1 H D-Dimer Heparin Anti-Xa Level ABG pH POC ABG pCO2 POC ABG pO2 ABG pO2 ABG HCO3 ABG O2 Saturation ABG Base Excess ABG Hemoglobin ABG Oxyhemoglobin ABG Sodium ABG Potassium ABG Chloride ABG Glucose VBG pH Oxyhemoglobin Carboxyhemoglobin Sodium 146 H Potassium Chloride Carbon Dioxide 34 H D BUN 27 H Creatinine 2.7 H Glucose 102 H POC Glucose Lactic Acid Calcium Phosphorus Magnesium Total Bilirubin AST 90 H ALT 66 H Ammonia Lactate Dehydrogenase Total Creatine Kinase CK-MB (CK-2) Troponin T 0.273 H* D NT-Pro-B Natriuret Pep Total Protein Albumin Triglycerides TSH Arterial Blood Glucose Arterial Blood Ionized Calcium Urine pH Urine WBC (Auto) Urine Creatinine 10/11/20 10/11/20 10/11/20 02:00 02:00 02:00 WBC 17.3 H RBC Hgb Hct RDW Lymph % (Auto) 3.9 L Johnson % (Auto) Eos % (Auto) Lymph # (Auto) 0.7 L Johnson # (Auto) Eos # (Auto) Seg Neutrophils % 93.0 H Lymphocytes % (Manual) Monocytes % (Manual) Seg Neutrophils # 16.1 H Seg Neutrophils # Man Lymphocytes # (Manual) Monocytes # (Manual) D-Dimer Heparin Anti-Xa Level ABG pH POC ABG pCO2 POC ABG pO2 ABG pO2 ABG HCO3 ABG O2 Saturation ABG Base Excess ABG Hemoglobin ABG Oxyhemoglobin ABG Sodium ABG Potassium ABG Chloride ABG Glucose VBG pH Oxyhemoglobin Carboxyhemoglobin Sodium 149 H Potassium 3.3 L Chloride 95.3 L Carbon Dioxide 37 H BUN 29 H Creatinine 2.6 H Glucose POC Glucose Lactic Acid Calcium Phosphorus Magnesium Total Bilirubin AST 80 H ALT 59 H Ammonia Lactate Dehydrogenase Total Creatine Kinase CK-MB (CK-2) Troponin T 0.201 H* D NT-Pro-B Natriuret Pep Total Protein Albumin 3.6 L Triglycerides TSH Arterial Blood Glucose Arterial Blood Ionized Calcium Urine pH Urine WBC (Auto) Urine Creatinine 10/11/20 10/11/20 10/11/20 03:51 08:35 11:15 WBC RBC Hgb Hct RDW Lymph % (Auto) Johnson % (Auto) Eos % (Auto) Lymph # (Auto) Johnson # (Auto) Eos # (Auto) Seg Neutrophils % Lymphocytes % (Manual) Monocytes % (Manual) Seg Neutrophils # Seg Neutrophils # Man Lymphocytes # (Manual) Monocytes # (Manual) D-Dimer Heparin Anti-Xa Level 0.22 L ABG pH 7.491 H POC ABG pCO2 57.6 H POC ABG pO2 ABG pO2 ABG HCO3 ABG O2 Saturation ABG Base Excess ABG Hemoglobin ABG Oxyhemoglobin ABG Sodium 150.0 H ABG Potassium 3.1 L ABG Chloride 96.0 L ABG Glucose 122 H VBG pH Oxyhemoglobin Carboxyhemoglobin Sodium Potassium Chloride Carbon Dioxide BUN Creatinine Glucose POC Glucose 151 H Lactic Acid Calcium Phosphorus Magnesium Total Bilirubin AST ALT Ammonia Lactate Dehydrogenase Total Creatine Kinase CK-MB (CK-2) Troponin T NT-Pro-B Natriuret Pep Total Protein Albumin Triglycerides TSH Arterial Blood Glucose 122 H Arterial Blood Ionized Calcium 3.9 L Urine pH Urine WBC (Auto) Urine Creatinine 10/11/20 10/11/20 10/11/20 13:30 13:30 13:30 WBC 15.0 H RBC Hgb Hct RDW Lymph % (Auto) Johnson % (Auto) Eos % (Auto) Lymph # (Auto) Johnson # (Auto) Eos # (Auto) Seg Neutrophils % Lymphocytes % (Manual) Monocytes % (Manual) Seg Neutrophils # Seg Neutrophils # Man Lymphocytes # (Manual) Monocytes # (Manual) D-Dimer Heparin Anti-Xa Level ABG pH POC ABG pCO2 POC ABG pO2 ABG pO2 ABG HCO3 ABG O2 Saturation ABG Base Excess ABG Hemoglobin ABG Oxyhemoglobin ABG Sodium ABG Potassium ABG Chloride ABG Glucose VBG pH Oxyhemoglobin Carboxyhemoglobin Sodium Potassium Chloride Carbon Dioxide BUN Creatinine Glucose POC Glucose Lactic Acid Calcium Phosphorus Magnesium Total Bilirubin AST ALT Ammonia Lactate Dehydrogenase Total Creatine Kinase CK-MB (CK-2) Troponin T NT-Pro-B Natriuret Pep Total Protein Albumin Triglycerides TSH Arterial Blood Glucose Arterial Blood Ionized Calcium Urine pH 9.0 H Urine WBC (Auto) 18.0 H Urine Creatinine 80.5 H 10/11/20 10/11/20 10/12/20 17:17 23:14 03:53 WBC RBC Hgb Hct RDW Lymph % (Auto) Johnson % (Auto) Eos % (Auto) Lymph # (Auto) Johnson # (Auto) Eos # (Auto) Seg Neutrophils % Lymphocytes % (Manual) Monocytes % (Manual) Seg Neutrophils # Seg Neutrophils # Man Lymphocytes # (Manual) Monocytes # (Manual) D-Dimer Heparin Anti-Xa Level ABG pH 7.545 H POC ABG pCO2 54.6 H POC ABG pO2 231.9 H ABG pO2 ABG HCO3 ABG O2 Saturation ABG Base Excess ABG Hemoglobin ABG Oxyhemoglobin 98.5 H ABG Sodium 150.5 H ABG Potassium 3.2 L ABG Chloride 96.0 L ABG Glucose 148 H VBG pH Oxyhemoglobin Carboxyhemoglobin Sodium Potassium Chloride Carbon Dioxide BUN Creatinine Glucose POC Glucose 121 H 135 H Lactic Acid Calcium Phosphorus Magnesium Total Bilirubin AST ALT Ammonia Lactate Dehydrogenase Total Creatine Kinase CK-MB (CK-2) Troponin T NT-Pro-B Natriuret Pep Total Protein Albumin Triglycerides TSH Arterial Blood Glucose 148 H Arterial Blood Ionized Calcium 3.8 L Urine pH Urine WBC (Auto) Urine Creatinine 10/12/20 10/12/20 10/12/20 04:00 05:10 05:12 WBC 14.3 H RBC Hgb 11.6 L Hct 35.2 L RDW Lymph % (Auto) Johnson % (Auto) Eos % (Auto) Lymph # (Auto) Johnson # (Auto) Eos # (Auto) Seg Neutrophils % Lymphocytes % (Manual) Monocytes % (Manual) Seg Neutrophils # Seg Neutrophils # Man Lymphocytes # (Manual) Monocytes # (Manual) D-Dimer Heparin Anti-Xa Level ABG pH POC ABG pCO2 POC ABG pO2 ABG pO2 ABG HCO3 ABG O2 Saturation ABG Base Excess ABG Hemoglobin ABG Oxyhemoglobin ABG Sodium ABG Potassium ABG Chloride ABG Glucose VBG pH Oxyhemoglobin Carboxyhemoglobin Sodium 155 H Potassium 3.3 L Chloride 97.9 L Carbon Dioxide 47 H* D BUN 50 H Creatinine 3.4 H Glucose 146 H POC Glucose 137 H Lactic Acid Calcium 8.0 L Phosphorus Magnesium Total Bilirubin AST ALT Ammonia Lactate Dehydrogenase Total Creatine Kinase CK-MB (CK-2) Troponin T 0.125 H* D NT-Pro-B Natriuret Pep Total Protein Albumin Triglycerides TSH Arterial Blood Glucose Arterial Blood Ionized Calcium Urine pH Urine WBC (Auto) Urine Creatinine 10/12/20 10/12/20 10/12/20 11:39 16:01 19:49 WBC RBC Hgb Hct RDW Lymph % (Auto) Johnson % (Auto) Eos % (Auto) Lymph # (Auto) Johnson # (Auto) Eos # (Auto) Seg Neutrophils % Lymphocytes % (Manual) Monocytes % (Manual) Seg Neutrophils # Seg Neutrophils # Man Lymphocytes # (Manual) Monocytes # (Manual) D-Dimer Heparin Anti-Xa Level ABG pH POC ABG pCO2 POC ABG pO2 ABG pO2 ABG HCO3 ABG O2 Saturation ABG Base Excess ABG Hemoglobin ABG Oxyhemoglobin ABG Sodium ABG Potassium ABG Chloride ABG Glucose VBG pH Oxyhemoglobin Carboxyhemoglobin Sodium 157 H Potassium 3.3 L Chloride Carbon Dioxide 47 H* BUN 52 H Creatinine 3.0 H Glucose 137 H POC Glucose 138 H 119 H Lactic Acid Calcium 8.0 L Phosphorus Magnesium Total Bilirubin AST ALT Ammonia Lactate Dehydrogenase Total Creatine Kinase CK-MB (CK-2) Troponin T NT-Pro-B Natriuret Pep Total Protein Albumin Triglycerides TSH Arterial Blood Glucose Arterial Blood Ionized Calcium Urine pH Urine WBC (Auto) Urine Creatinine 10/12/20 10/13/20 10/13/20 23:37 02:28 04:52 WBC RBC Hgb Hct RDW Lymph % (Auto) Johnson % (Auto) Eos % (Auto) Lymph # (Auto) Johnson # (Auto) Eos # (Auto) Seg Neutrophils % Lymphocytes % (Manual) Monocytes % (Manual) Seg Neutrophils # Seg Neutrophils # Man Lymphocytes # (Manual) Monocytes # (Manual) D-Dimer Heparin Anti-Xa Level ABG pH 7.485 H POC ABG pCO2 57.1 H POC ABG pO2 ABG pO2 ABG HCO3 ABG O2 Saturation ABG Base Excess ABG Hemoglobin ABG Oxyhemoglobin ABG Sodium 152.4 H ABG Potassium ABG Chloride ABG Glucose 129 H VBG pH Oxyhemoglobin Carboxyhemoglobin Sodium 155 H Potassium Chloride Carbon Dioxide 45 H* BUN 52 H Creatinine 2.7 H Glucose 121 H POC Glucose 131 H Lactic Acid Calcium Phosphorus Magnesium 2.40 H Total Bilirubin AST ALT Ammonia Lactate Dehydrogenase Total Creatine Kinase CK-MB (CK-2) Troponin T NT-Pro-B Natriuret Pep Total Protein Albumin Triglycerides 278 H TSH Arterial Blood Glucose 129 H Arterial Blood Ionized Calcium 4.1 L Urine pH Urine WBC (Auto) Urine Creatinine 10/13/20 10/13/20 10/13/20 04:52 05:13 11:37 WBC 14.7 H RBC Hgb 11.7 L Hct RDW 15.8 H Lymph % (Auto) Johnson % (Auto) Eos % (Auto) Lymph # (Auto) Johnson # (Auto) Eos # (Auto) Seg Neutrophils % Lymphocytes % (Manual) Monocytes % (Manual) Seg Neutrophils # Seg Neutrophils # Man Lymphocytes # (Manual) Monocytes # (Manual) D-Dimer Heparin Anti-Xa Level ABG pH POC ABG pCO2 POC ABG pO2 ABG pO2 ABG HCO3 ABG O2 Saturation ABG Base Excess ABG Hemoglobin ABG Oxyhemoglobin ABG Sodium ABG Potassium ABG Chloride ABG Glucose VBG pH Oxyhemoglobin Carboxyhemoglobin Sodium Potassium Chloride Carbon Dioxide BUN Creatinine Glucose POC Glucose 116 H 116 H Lactic Acid Calcium Phosphorus Magnesium Total Bilirubin AST ALT Ammonia Lactate Dehydrogenase Total Creatine Kinase CK-MB (CK-2) Troponin T NT-Pro-B Natriuret Pep Total Protein Albumin Triglycerides TSH Arterial Blood Glucose Arterial Blood Ionized Calcium Urine pH Urine WBC (Auto) Urine Creatinine 10/13/20 10/14/20 10/14/20 17:50 03:45 04:46 WBC 11.1 H RBC Hgb Hct RDW 15.3 H Lymph % (Auto) Johnson % (Auto) Eos % (Auto) Lymph # (Auto) Johnson # (Auto) Eos # (Auto) Seg Neutrophils % Lymphocytes % (Manual) Monocytes % (Manual) Seg Neutrophils # Seg Neutrophils # Man Lymphocytes # (Manual) Monocytes # (Manual) D-Dimer Heparin Anti-Xa Level ABG pH POC ABG pCO2 59.6 H POC ABG pO2 ABG pO2 ABG HCO3 ABG O2 Saturation ABG Base Excess ABG Hemoglobin ABG Oxyhemoglobin ABG Sodium 151.4 H ABG Potassium 3.3 L ABG Chloride ABG Glucose 138 H VBG pH Oxyhemoglobin Carboxyhemoglobin 1.6 H Sodium Potassium Chloride Carbon Dioxide BUN Creatinine Glucose POC Glucose 140 H Lactic Acid Calcium Phosphorus Magnesium Total Bilirubin AST ALT Ammonia Lactate Dehydrogenase Total Creatine Kinase CK-MB (CK-2) Troponin T NT-Pro-B Natriuret Pep Total Protein Albumin Triglycerides TSH Arterial Blood Glucose 138 H Arterial Blood Ionized Calcium 4.5 L Urine pH Urine WBC (Auto) Urine Creatinine 10/14/20 10/14/20 10/14/20 04:46 05:10 11:11 WBC RBC Hgb Hct RDW Lymph % (Auto) Johnson % (Auto) Eos % (Auto) Lymph # (Auto) Johnson # (Auto) Eos # (Auto) Seg Neutrophils % Lymphocytes % (Manual) Monocytes % (Manual) Seg Neutrophils # Seg Neutrophils # Man Lymphocytes # (Manual) Monocytes # (Manual) D-Dimer Heparin Anti-Xa Level ABG pH POC ABG pCO2 POC ABG pO2 ABG pO2 ABG HCO3 ABG O2 Saturation ABG Base Excess ABG Hemoglobin ABG Oxyhemoglobin ABG Sodium ABG Potassium ABG Chloride ABG Glucose VBG pH Oxyhemoglobin Carboxyhemoglobin Sodium 152 H Potassium 3.5 L Chloride Carbon Dioxide 38 H D BUN 46 H Creatinine 2.3 H Glucose 127 H POC Glucose 116 H 114 H Lactic Acid Calcium Phosphorus Magnesium Total Bilirubin AST ALT Ammonia Lactate Dehydrogenase Total Creatine Kinase CK-MB (CK-2) Troponin T NT-Pro-B Natriuret Pep Total Protein Albumin Triglycerides TSH Arterial Blood Glucose Arterial Blood Ionized Calcium Urine pH Urine WBC (Auto) Urine Creatinine 10/14/20 10/14/20 10/15/20 18:53 23:23 04:12 WBC RBC Hgb Hct RDW Lymph % (Auto) Johnson % (Auto) Eos % (Auto) Lymph # (Auto) Johnson # (Auto) Eos # (Auto) Seg Neutrophils % Lymphocytes % (Manual) Monocytes % (Manual) Seg Neutrophils # Seg Neutrophils # Man Lymphocytes # (Manual) Monocytes # (Manual) D-Dimer Heparin Anti-Xa Level ABG pH POC ABG pCO2 POC ABG pO2 ABG pO2 ABG HCO3 ABG O2 Saturation ABG Base Excess ABG Hemoglobin ABG Oxyhemoglobin ABG Sodium ABG Potassium ABG Chloride ABG Glucose VBG pH Oxyhemoglobin Carboxyhemoglobin Sodium 149 H Potassium 3.2 L Chloride Carbon Dioxide 37 H BUN 40 H Creatinine 2.0 H Glucose 124 H POC Glucose 128 H 113 H Lactic Acid Calcium Phosphorus Magnesium Total Bilirubin AST ALT Ammonia Lactate Dehydrogenase Total Creatine Kinase CK-MB (CK-2) Troponin T NT-Pro-B Natriuret Pep Total Protein Albumin Triglycerides TSH Arterial Blood Glucose Arterial Blood Ionized Calcium Urine pH Urine WBC (Auto) Urine Creatinine 10/15/20 10/15/20 10/15/20 04:22 11:39 17:36 WBC RBC Hgb Hct RDW Lymph % (Auto) Johnson % (Auto) Eos % (Auto) Lymph # (Auto) Johnson # (Auto) Eos # (Auto) Seg Neutrophils % Lymphocytes % (Manual) Monocytes % (Manual) Seg Neutrophils # Seg Neutrophils # Man Lymphocytes # (Manual) Monocytes # (Manual) D-Dimer Heparin Anti-Xa Level ABG pH POC ABG pCO2 POC ABG pO2 ABG pO2 115.0 H ABG HCO3 38.1 H ABG O2 Saturation ABG Base Excess 11.3 H ABG Hemoglobin 11.0 L ABG Oxyhemoglobin ABG Sodium ABG Potassium ABG Chloride ABG Glucose VBG pH Oxyhemoglobin Carboxyhemoglobin Sodium Potassium Chloride Carbon Dioxide BUN Creatinine Glucose POC Glucose 123 H 118 H Lactic Acid Calcium Phosphorus Magnesium Total Bilirubin AST ALT Ammonia Lactate Dehydrogenase Total Creatine Kinase CK-MB (CK-2) Troponin T NT-Pro-B Natriuret Pep Total Protein Albumin Triglycerides TSH Arterial Blood Glucose Arterial Blood Ionized Calcium Urine pH Urine WBC (Auto) Urine Creatinine 10/15/20 10/16/20 10/16/20 23:18 03:13 05:10 WBC RBC Hgb Hct RDW Lymph % (Auto) Johnson % (Auto) Eos % (Auto) Lymph # (Auto) Johnson # (Auto) Eos # (Auto) Seg Neutrophils % Lymphocytes % (Manual) Monocytes % (Manual) Seg Neutrophils # Seg Neutrophils # Man Lymphocytes # (Manual) Monocytes # (Manual) D-Dimer Heparin Anti-Xa Level ABG pH POC ABG pCO2 POC ABG pO2 ABG pO2 104.5 H ABG HCO3 35.1 H ABG O2 Saturation ABG Base Excess 9.5 H ABG Hemoglobin 7.9 L ABG Oxyhemoglobin ABG Sodium ABG Potassium ABG Chloride ABG Glucose VBG pH Oxyhemoglobin Carboxyhemoglobin Sodium Potassium 3.3 L Chloride Carbon Dioxide 33 H BUN 37 H Creatinine 1.4 H Glucose 148 H POC Glucose 135 H Lactic Acid Calcium Phosphorus Magnesium 2.40 H Total Bilirubin AST ALT Ammonia Lactate Dehydrogenase Total Creatine Kinase CK-MB (CK-2) Troponin T NT-Pro-B Natriuret Pep Total Protein Albumin Triglycerides TSH Arterial Blood Glucose Arterial Blood Ionized Calcium Urine pH Urine WBC (Auto) Urine Creatinine 10/16/20 10/16/20 10/16/20 06:36 11:08 17:07 WBC RBC Hgb Hct RDW Lymph % (Auto) Johnson % (Auto) Eos % (Auto) Lymph # (Auto) Johnson # (Auto) Eos # (Auto) Seg Neutrophils % Lymphocytes % (Manual) Monocytes % (Manual) Seg Neutrophils # Seg Neutrophils # Man Lymphocytes # (Manual) Monocytes # (Manual) D-Dimer Heparin Anti-Xa Level ABG pH POC ABG pCO2 POC ABG pO2 ABG pO2 ABG HCO3 ABG O2 Saturation ABG Base Excess ABG Hemoglobin ABG Oxyhemoglobin ABG Sodium ABG Potassium ABG Chloride ABG Glucose VBG pH Oxyhemoglobin Carboxyhemoglobin Sodium Potassium Chloride Carbon Dioxide BUN Creatinine Glucose POC Glucose 150 H 111 H 132 H Lactic Acid Calcium Phosphorus Magnesium Total Bilirubin AST ALT Ammonia Lactate Dehydrogenase Total Creatine Kinase CK-MB (CK-2) Troponin T NT-Pro-B Natriuret Pep Total Protein Albumin Triglycerides TSH Arterial Blood Glucose Arterial Blood Ionized Calcium Urine pH Urine WBC (Auto) Urine Creatinine 10/16/20 10/17/20 10/17/20 23:38 03:32 03:32 WBC RBC Hgb Hct RDW Lymph % (Auto) Johnson % (Auto) Eos % (Auto) Lymph # (Auto) Johnson # (Auto) Eos # (Auto) Seg Neutrophils % Lymphocytes % (Manual) Monocytes % (Manual) Seg Neutrophils # Seg Neutrophils # Man Lymphocytes # (Manual) Monocytes # (Manual) D-Dimer Heparin Anti-Xa Level ABG pH POC ABG pCO2 POC ABG pO2 ABG pO2 ABG HCO3 ABG O2 Saturation ABG Base Excess ABG Hemoglobin ABG Oxyhemoglobin ABG Sodium ABG Potassium ABG Chloride ABG Glucose VBG pH Oxyhemoglobin Carboxyhemoglobin Sodium 146 H Potassium Chloride Carbon Dioxide 32 H BUN 57 H Creatinine 2.4 H D Glucose 124 H POC Glucose 117 H Lactic Acid Calcium Phosphorus 5.20 H D Magnesium Total Bilirubin AST ALT Ammonia Lactate Dehydrogenase Total Creatine Kinase CK-MB (CK-2) Troponin T NT-Pro-B Natriuret Pep Total Protein Albumin Triglycerides TSH Arterial Blood Glucose Arterial Blood Ionized Calcium Urine pH Urine WBC (Auto) Urine Creatinine 10/17/20 10/17/20 10/18/20 05:10 17:33 00:13 WBC RBC Hgb Hct RDW Lymph % (Auto) Johnson % (Auto) Eos % (Auto) Lymph # (Auto) Johnson # (Auto) Eos # (Auto) Seg Neutrophils % Lymphocytes % (Manual) Monocytes % (Manual) Seg Neutrophils # Seg Neutrophils # Man Lymphocytes # (Manual) Monocytes # (Manual) D-Dimer Heparin Anti-Xa Level ABG pH POC ABG pCO2 POC ABG pO2 ABG pO2 ABG HCO3 ABG O2 Saturation ABG Base Excess ABG Hemoglobin ABG Oxyhemoglobin ABG Sodium ABG Potassium ABG Chloride ABG Glucose VBG pH Oxyhemoglobin Carboxyhemoglobin Sodium Potassium Chloride Carbon Dioxide BUN Creatinine Glucose POC Glucose 122 H 121 H 23 L Lactic Acid Calcium Phosphorus Magnesium Total Bilirubin AST ALT Ammonia Lactate Dehydrogenase Total Creatine Kinase CK-MB (CK-2) Troponin T NT-Pro-B Natriuret Pep Total Protein Albumin Triglycerides TSH Arterial Blood Glucose Arterial Blood Ionized Calcium Urine pH Urine WBC (Auto) Urine Creatinine 10/18/20 10/18/20 10/18/20 00:16 03:27 03:27 WBC RBC Hgb 11.7 L Hct RDW Lymph % (Auto) Johnson % (Auto) Eos % (Auto) Lymph # (Auto) Johnson # (Auto) Eos # (Auto) Seg Neutrophils % Lymphocytes % (Manual) Monocytes % (Manual) Seg Neutrophils # Seg Neutrophils # Man Lymphocytes # (Manual) Monocytes # (Manual) D-Dimer Heparin Anti-Xa Level ABG pH POC ABG pCO2 POC ABG pO2 ABG pO2 ABG HCO3 ABG O2 Saturation ABG Base Excess ABG Hemoglobin ABG Oxyhemoglobin ABG Sodium ABG Potassium ABG Chloride ABG Glucose VBG pH Oxyhemoglobin Carboxyhemoglobin Sodium Potassium Chloride 97.6 L Carbon Dioxide BUN 90 H Creatinine 3.3 H Glucose 146 H POC Glucose 134 H Lactic Acid Calcium Phosphorus Magnesium Total Bilirubin 1.70 H AST ALT Ammonia Lactate Dehydrogenase Total Creatine Kinase CK-MB (CK-2) Troponin T NT-Pro-B Natriuret Pep Total Protein Albumin 3.1 L Triglycerides TSH Arterial Blood Glucose Arterial Blood Ionized Calcium Urine pH Urine WBC (Auto) Urine Creatinine 10/18/20 10/18/20 10/18/20 05:09 11:19 17:15 WBC RBC Hgb Hct RDW Lymph % (Auto) Johnson % (Auto) Eos % (Auto) Lymph # (Auto) Johnson # (Auto) Eos # (Auto) Seg Neutrophils % Lymphocytes % (Manual) Monocytes % (Manual) Seg Neutrophils # Seg Neutrophils # Man Lymphocytes # (Manual) Monocytes # (Manual) D-Dimer Heparin Anti-Xa Level ABG pH POC ABG pCO2 POC ABG pO2 ABG pO2 ABG HCO3 ABG O2 Saturation ABG Base Excess ABG Hemoglobin ABG Oxyhemoglobin ABG Sodium ABG Potassium ABG Chloride ABG Glucose VBG pH Oxyhemoglobin Carboxyhemoglobin Sodium Potassium Chloride Carbon Dioxide BUN Creatinine Glucose POC Glucose 144 H 145 H 151 H Lactic Acid Calcium Phosphorus Magnesium Total Bilirubin AST ALT Ammonia Lactate Dehydrogenase Total Creatine Kinase CK-MB (CK-2) Troponin T NT-Pro-B Natriuret Pep Total Protein Albumin Triglycerides TSH Arterial Blood Glucose Arterial Blood Ionized Calcium Urine pH Urine WBC (Auto) Urine Creatinine 10/18/20 10/18/20 10/19/20 23:16 Unknown 04:55 WBC RBC Hgb Hct RDW Lymph % (Auto) Johnson % (Auto) Eos % (Auto) Lymph # (Auto) Johnson # (Auto) Eos # (Auto) Seg Neutrophils % Lymphocytes % (Manual) Monocytes % (Manual) Seg Neutrophils # Seg Neutrophils # Man Lymphocytes # (Manual) Monocytes # (Manual) D-Dimer Heparin Anti-Xa Level ABG pH POC ABG pCO2 POC ABG pO2 ABG pO2 ABG HCO3 ABG O2 Saturation ABG Base Excess ABG Hemoglobin ABG Oxyhemoglobin ABG Sodium ABG Potassium ABG Chloride ABG Glucose VBG pH Oxyhemoglobin Carboxyhemoglobin Sodium Potassium Chloride Carbon Dioxide BUN 104 H Creatinine 3.1 H Glucose 139 H POC Glucose 123 H Lactic Acid Calcium Phosphorus Magnesium Total Bilirubin AST ALT Ammonia Lactate Dehydrogenase Total Creatine Kinase CK-MB (CK-2) Troponin T NT-Pro-B Natriuret Pep Total Protein Albumin Triglycerides TSH Arterial Blood Glucose Arterial Blood Ionized Calcium Urine pH Urine WBC (Auto) 115.0 H Urine Creatinine 10/19/20 10/19/20 10/19/20 04:55 11:35 13:14 WBC 15.1 H RBC Hgb 11.1 L Hct 34.4 L RDW Lymph % (Auto) 4.2 L Johnson % (Auto) 11.9 H Eos % (Auto) Lymph # (Auto) 0.6 L Johnson # (Auto) 1.8 H Eos # (Auto) Seg Neutrophils % 82.0 H Lymphocytes % (Manual) Monocytes % (Manual) Seg Neutrophils # 12.4 H Seg Neutrophils # Man Lymphocytes # (Manual) Monocytes # (Manual) D-Dimer Heparin Anti-Xa Level ABG pH POC ABG pCO2 POC ABG pO2 ABG pO2 ABG HCO3 ABG O2 Saturation ABG Base Excess ABG Hemoglobin ABG Oxyhemoglobin ABG Sodium ABG Potassium ABG Chloride ABG Glucose VBG pH Oxyhemoglobin Carboxyhemoglobin Sodium Potassium Chloride Carbon Dioxide BUN Creatinine Glucose POC Glucose 136 H Lactic Acid Calcium Phosphorus Magnesium Total Bilirubin AST ALT Ammonia Lactate Dehydrogenase Total Creatine Kinase CK-MB (CK-2) Troponin T NT-Pro-B Natriuret Pep Total Protein Albumin Triglycerides TSH Arterial Blood Glucose Arterial Blood Ionized Calcium Urine pH Urine WBC (Auto) Urine Creatinine 93.7 H 10/19/20 10/19/20 10/20/20 17:53 23:39 04:30 WBC RBC Hgb Hct RDW Lymph % (Auto) Johnson % (Auto) Eos % (Auto) Lymph # (Auto) Johnson # (Auto) Eos # (Auto) Seg Neutrophils % Lymphocytes % (Manual) Monocytes % (Manual) Seg Neutrophils # Seg Neutrophils # Man Lymphocytes # (Manual) Monocytes # (Manual) D-Dimer Heparin Anti-Xa Level ABG pH POC ABG pCO2 POC ABG pO2 ABG pO2 ABG HCO3 ABG O2 Saturation ABG Base Excess ABG Hemoglobin ABG Oxyhemoglobin ABG Sodium ABG Potassium ABG Chloride ABG Glucose VBG pH Oxyhemoglobin Carboxyhemoglobin Sodium Potassium Chloride Carbon Dioxide BUN 104 H Creatinine 2.8 H Glucose 151 H POC Glucose 137 H 133 H Lactic Acid Calcium Phosphorus Magnesium Total Bilirubin AST ALT Ammonia Lactate Dehydrogenase Total Creatine Kinase CK-MB (CK-2) Troponin T NT-Pro-B Natriuret Pep Total Protein Albumin Triglycerides TSH Arterial Blood Glucose Arterial Blood Ionized Calcium Urine pH Urine WBC (Auto) Urine Creatinine 10/20/20 10/20/20 10/20/20 04:30 05:38 11:34 WBC 17.9 H RBC Hgb 11.7 L Hct RDW Lymph % (Auto) Johnson % (Auto) Eos % (Auto) Lymph # (Auto) Johnson # (Auto) Eos # (Auto) Seg Neutrophils % Lymphocytes % (Manual) Monocytes % (Manual) Seg Neutrophils # Seg Neutrophils # Man Lymphocytes # (Manual) Monocytes # (Manual) D-Dimer Heparin Anti-Xa Level ABG pH POC ABG pCO2 POC ABG pO2 ABG pO2 ABG HCO3 ABG O2 Saturation ABG Base Excess ABG Hemoglobin ABG Oxyhemoglobin ABG Sodium ABG Potassium ABG Chloride ABG Glucose VBG pH Oxyhemoglobin Carboxyhemoglobin Sodium Potassium Chloride Carbon Dioxide BUN Creatinine Glucose POC Glucose 164 H 148 H Lactic Acid Calcium Phosphorus Magnesium Total Bilirubin AST ALT Ammonia Lactate Dehydrogenase Total Creatine Kinase CK-MB (CK-2) Troponin T NT-Pro-B Natriuret Pep Total Protein Albumin Triglycerides TSH Arterial Blood Glucose Arterial Blood Ionized Calcium Urine pH Urine WBC (Auto) Urine Creatinine 10/20/20 10/20/20 10/20/20 17:40 20:20 23:29 WBC RBC Hgb Hct RDW Lymph % (Auto) Johnson % (Auto) Eos % (Auto) Lymph # (Auto) Johnson # (Auto) Eos # (Auto) Seg Neutrophils % Lymphocytes % (Manual) Monocytes % (Manual) Seg Neutrophils # Seg Neutrophils # Man Lymphocytes # (Manual) Monocytes # (Manual) D-Dimer Heparin Anti-Xa Level ABG pH 7.292 L POC ABG pCO2 68.5 H POC ABG pO2 ABG pO2 ABG HCO3 ABG O2 Saturation ABG Base Excess ABG Hemoglobin 11.6 L ABG Oxyhemoglobin ABG Sodium ABG Potassium ABG Chloride ABG Glucose 145 H VBG pH Oxyhemoglobin Carboxyhemoglobin Sodium Potassium Chloride Carbon Dioxide BUN Creatinine Glucose POC Glucose 130 H 136 H Lactic Acid Calcium Phosphorus Magnesium Total Bilirubin AST ALT Ammonia Lactate Dehydrogenase Total Creatine Kinase CK-MB (CK-2) Troponin T NT-Pro-B Natriuret Pep Total Protein Albumin Triglycerides TSH Arterial Blood Glucose 145 H Arterial Blood Ionized Calcium Urine pH Urine WBC (Auto) Urine Creatinine 10/21/20 10/21/20 10/21/20 04:20 06:26 06:30 WBC RBC Hgb Hct RDW Lymph % (Auto) Johnson % (Auto) Eos % (Auto) Lymph # (Auto) Johnson # (Auto) Eos # (Auto) Seg Neutrophils % Lymphocytes % (Manual) Monocytes % (Manual) Seg Neutrophils # Seg Neutrophils # Man Lymphocytes # (Manual) Monocytes # (Manual) D-Dimer Heparin Anti-Xa Level ABG pH 7.262 L POC ABG pCO2 72.4 H POC ABG pO2 81.6 L ABG pO2 ABG HCO3 ABG O2 Saturation ABG Base Excess ABG Hemoglobin 11.6 L ABG Oxyhemoglobin ABG Sodium ABG Potassium ABG Chloride ABG Glucose 140 H VBG pH Oxyhemoglobin Carboxyhemoglobin Sodium Potassium Chloride Carbon Dioxide 33 H BUN 104 H Creatinine 2.9 H Glucose 153 H POC Glucose 128 H Lactic Acid Calcium Phosphorus Magnesium Total Bilirubin AST ALT Ammonia Lactate Dehydrogenase Total Creatine Kinase CK-MB (CK-2) Troponin T NT-Pro-B Natriuret Pep Total Protein Albumin Triglycerides TSH Arterial Blood Glucose 140 H Arterial Blood Ionized Calcium Urine pH Urine WBC (Auto) Urine Creatinine 10/21/20 10/21/20 10/21/20 06:30 11:24 17:21 WBC 13.3 H RBC Hgb 10.7 L Hct 32.7 L RDW Lymph % (Auto) Johnson % (Auto) Eos % (Auto) Lymph # (Auto) Johnson # (Auto) Eos # (Auto) Seg Neutrophils % Lymphocytes % (Manual) Monocytes % (Manual) Seg Neutrophils # Seg Neutrophils # Man Lymphocytes # (Manual) Monocytes # (Manual) D-Dimer Heparin Anti-Xa Level ABG pH POC ABG pCO2 POC ABG pO2 ABG pO2 ABG HCO3 ABG O2 Saturation ABG Base Excess ABG Hemoglobin ABG Oxyhemoglobin ABG Sodium ABG Potassium ABG Chloride ABG Glucose VBG pH Oxyhemoglobin Carboxyhemoglobin Sodium Potassium Chloride Carbon Dioxide BUN Creatinine Glucose POC Glucose 178 H 138 H Lactic Acid Calcium Phosphorus Magnesium Total Bilirubin AST ALT Ammonia Lactate Dehydrogenase Total Creatine Kinase CK-MB (CK-2) Troponin T NT-Pro-B Natriuret Pep Total Protein Albumin Triglycerides TSH Arterial Blood Glucose Arterial Blood Ionized Calcium Urine pH Urine WBC (Auto) Urine Creatinine 10/22/20 10/22/20 10/22/20 00:05 04:30 06:15 WBC RBC Hgb Hct RDW Lymph % (Auto) Johnson % (Auto) Eos % (Auto) Lymph # (Auto) Johnson # (Auto) Eos # (Auto) Seg Neutrophils % Lymphocytes % (Manual) Monocytes % (Manual) Seg Neutrophils # Seg Neutrophils # Man Lymphocytes # (Manual) Monocytes # (Manual) D-Dimer Heparin Anti-Xa Level ABG pH 7.225 L POC ABG pCO2 76.6 H POC ABG pO2 ABG pO2 ABG HCO3 ABG O2 Saturation ABG Base Excess ABG Hemoglobin 11.1 L ABG Oxyhemoglobin ABG Sodium ABG Potassium ABG Chloride ABG Glucose 151 H VBG pH Oxyhemoglobin Carboxyhemoglobin Sodium Potassium Chloride Carbon Dioxide 32 H BUN 103 H Creatinine 2.7 H Glucose 151 H POC Glucose 135 H Lactic Acid Calcium Phosphorus Magnesium Total Bilirubin AST ALT Ammonia Lactate Dehydrogenase Total Creatine Kinase CK-MB (CK-2) Troponin T NT-Pro-B Natriuret Pep Total Protein Albumin Triglycerides TSH Arterial Blood Glucose 151 H Arterial Blood Ionized Calcium Urine pH Urine WBC (Auto) Urine Creatinine 10/22/20 10/22/20 10/22/20 06:18 11:34 11:44 WBC RBC Hgb Hct RDW Lymph % (Auto) Johnson % (Auto) Eos % (Auto) Lymph # (Auto) Johnson # (Auto) Eos # (Auto) Seg Neutrophils % Lymphocytes % (Manual) Monocytes % (Manual) Seg Neutrophils # Seg Neutrophils # Man Lymphocytes # (Manual) Monocytes # (Manual) D-Dimer Heparin Anti-Xa Level ABG pH 7.278 L POC ABG pCO2 67.8 H POC ABG pO2 ABG pO2 ABG HCO3 ABG O2 Saturation ABG Base Excess ABG Hemoglobin 10.2 L ABG Oxyhemoglobin ABG Sodium ABG Potassium ABG Chloride ABG Glucose 172 H VBG pH Oxyhemoglobin Carboxyhemoglobin Sodium Potassium Chloride Carbon Dioxide BUN Creatinine Glucose POC Glucose 137 H 147 H Lactic Acid Calcium Phosphorus Magnesium Total Bilirubin AST ALT Ammonia Lactate Dehydrogenase Total Creatine Kinase CK-MB (CK-2) Troponin T NT-Pro-B Natriuret Pep Total Protein Albumin Triglycerides TSH Arterial Blood Glucose 172 H Arterial Blood Ionized Calcium Urine pH Urine WBC (Auto) Urine Creatinine 10/22/20 10/22/20 10/23/20 17:40 23:55 05:11 WBC RBC Hgb Hct RDW Lymph % (Auto) Johnson % (Auto) Eos % (Auto) Lymph # (Auto) Johnson # (Auto) Eos # (Auto) Seg Neutrophils % Lymphocytes % (Manual) Monocytes % (Manual) Seg Neutrophils # Seg Neutrophils # Man Lymphocytes # (Manual) Monocytes # (Manual) D-Dimer Heparin Anti-Xa Level ABG pH POC ABG pCO2 63.6 H POC ABG pO2 81.2 L ABG pO2 ABG HCO3 ABG O2 Saturation ABG Base Excess ABG Hemoglobin 10.6 L ABG Oxyhemoglobin ABG Sodium ABG Potassium ABG Chloride 109.0 H ABG Glucose 149 H VBG pH Oxyhemoglobin Carboxyhemoglobin Sodium Potassium Chloride Carbon Dioxide BUN Creatinine Glucose POC Glucose 141 H 139 H Lactic Acid Calcium Phosphorus Magnesium Total Bilirubin AST ALT Ammonia Lactate Dehydrogenase Total Creatine Kinase CK-MB (CK-2) Troponin T NT-Pro-B Natriuret Pep Total Protein Albumin Triglycerides TSH Arterial Blood Glucose 149 H Arterial Blood Ionized Calcium Urine pH Urine WBC (Auto) Urine Creatinine 10/23/20 10/23/20 10/23/20 05:39 06:00 11:32 WBC RBC Hgb Hct RDW Lymph % (Auto) Johnson % (Auto) Eos % (Auto) Lymph # (Auto) Johnson # (Auto) Eos # (Auto) Seg Neutrophils % Lymphocytes % (Manual) Monocytes % (Manual) Seg Neutrophils # Seg Neutrophils # Man Lymphocytes # (Manual) Monocytes # (Manual) D-Dimer Heparin Anti-Xa Level ABG pH POC ABG pCO2 POC ABG pO2 ABG pO2 ABG HCO3 ABG O2 Saturation ABG Base Excess ABG Hemoglobin ABG Oxyhemoglobin ABG Sodium ABG Potassium ABG Chloride ABG Glucose VBG pH Oxyhemoglobin Carboxyhemoglobin Sodium 146 H Potassium Chloride Carbon Dioxide 35 H BUN 92 H Creatinine 2.0 H Glucose 144 H POC Glucose 139 H 176 H Lactic Acid Calcium Phosphorus Magnesium Total Bilirubin AST ALT Ammonia Lactate Dehydrogenase Total Creatine Kinase CK-MB (CK-2) Troponin T NT-Pro-B Natriuret Pep Total Protein Albumin Triglycerides TSH Arterial Blood Glucose Arterial Blood Ionized Calcium Urine pH Urine WBC (Auto) Urine Creatinine 10/23/20 10/23/20 10/24/20 11:34 17:55 05:33 WBC RBC Hgb Hct RDW Lymph % (Auto) Johnson % (Auto) Eos % (Auto) Lymph # (Auto) Johnson # (Auto) Eos # (Auto) Seg Neutrophils % Lymphocytes % (Manual) Monocytes % (Manual) Seg Neutrophils # Seg Neutrophils # Man Lymphocytes # (Manual) Monocytes # (Manual) D-Dimer Heparin Anti-Xa Level ABG pH POC ABG pCO2 POC ABG pO2 ABG pO2 ABG HCO3 ABG O2 Saturation ABG Base Excess ABG Hemoglobin ABG Oxyhemoglobin ABG Sodium ABG Potassium ABG Chloride ABG Glucose VBG pH Oxyhemoglobin Carboxyhemoglobin Sodium 147 H Potassium Chloride Carbon Dioxide 32 H BUN 76 H Creatinine 1.7 H Glucose 172 H POC Glucose 173 H 135 H Lactic Acid Calcium Phosphorus Magnesium Total Bilirubin AST ALT Ammonia Lactate Dehydrogenase Total Creatine Kinase CK-MB (CK-2) Troponin T NT-Pro-B Natriuret Pep Total Protein Albumin Triglycerides TSH Arterial Blood Glucose Arterial Blood Ionized Calcium Urine pH Urine WBC (Auto) Urine Creatinine 10/24/20 10/24/20 10/24/20 05:41 12:09 18:09 WBC RBC Hgb Hct RDW Lymph % (Auto) Johnson % (Auto) Eos % (Auto) Lymph # (Auto) Johnson # (Auto) Eos # (Auto) Seg Neutrophils % Lymphocytes % (Manual) Monocytes % (Manual) Seg Neutrophils # Seg Neutrophils # Man Lymphocytes # (Manual) Monocytes # (Manual) D-Dimer Heparin Anti-Xa Level ABG pH POC ABG pCO2 POC ABG pO2 ABG pO2 ABG HCO3 ABG O2 Saturation ABG Base Excess ABG Hemoglobin ABG Oxyhemoglobin ABG Sodium ABG Potassium ABG Chloride ABG Glucose VBG pH Oxyhemoglobin Carboxyhemoglobin Sodium Potassium Chloride Carbon Dioxide BUN Creatinine Glucose POC Glucose 156 H 154 H 132 H Lactic Acid Calcium Phosphorus Magnesium Total Bilirubin AST ALT Ammonia Lactate Dehydrogenase Total Creatine Kinase CK-MB (CK-2) Troponin T NT-Pro-B Natriuret Pep Total Protein Albumin Triglycerides TSH Arterial Blood Glucose Arterial Blood Ionized Calcium Urine pH Urine WBC (Auto) Urine Creatinine 10/24/20 10/25/20 10/25/20 23:39 05:29 08:55 WBC RBC Hgb Hct RDW Lymph % (Auto) Johnson % (Auto) Eos % (Auto) Lymph # (Auto) Johnson # (Auto) Eos # (Auto) Seg Neutrophils % Lymphocytes % (Manual) Monocytes % (Manual) Seg Neutrophils # Seg Neutrophils # Man Lymphocytes # (Manual) Monocytes # (Manual) D-Dimer Heparin Anti-Xa Level ABG pH POC ABG pCO2 POC ABG pO2 ABG pO2 ABG HCO3 ABG O2 Saturation ABG Base Excess ABG Hemoglobin ABG Oxyhemoglobin ABG Sodium ABG Potassium ABG Chloride ABG Glucose VBG pH Oxyhemoglobin Carboxyhemoglobin Sodium 150 H Potassium Chloride 108.3 H Carbon Dioxide 32 H BUN 57 H Creatinine 1.5 H Glucose 142 H POC Glucose 131 H 142 H Lactic Acid Calcium Phosphorus Magnesium Total Bilirubin AST ALT Ammonia Lactate Dehydrogenase Total Creatine Kinase CK-MB (CK-2) Troponin T NT-Pro-B Natriuret Pep Total Protein Albumin Triglycerides TSH Arterial Blood Glucose Arterial Blood Ionized Calcium Urine pH Urine WBC (Auto) Urine Creatinine 10/25/20 10/25/20 10/25/20 08:55 11:08 18:10 WBC 14.3 H RBC 3.57 L Hgb 10.3 L Hct 31.6 L RDW Lymph % (Auto) Johnson % (Auto) Eos % (Auto) Lymph # (Auto) Johnson # (Auto) Eos # (Auto) Seg Neutrophils % Lymphocytes % (Manual) Monocytes % (Manual) Seg Neutrophils # Seg Neutrophils # Man Lymphocytes # (Manual) Monocytes # (Manual) D-Dimer Heparin Anti-Xa Level ABG pH POC ABG pCO2 52.3 H POC ABG pO2 ABG pO2 ABG HCO3 ABG O2 Saturation ABG Base Excess ABG Hemoglobin 11.2 L ABG Oxyhemoglobin ABG Sodium ABG Potassium ABG Chloride 108.0 H ABG Glucose 167 H VBG pH Oxyhemoglobin Carboxyhemoglobin Sodium Potassium Chloride Carbon Dioxide BUN Creatinine Glucose POC Glucose 157 H Lactic Acid Calcium Phosphorus Magnesium Total Bilirubin AST ALT Ammonia Lactate Dehydrogenase Total Creatine Kinase CK-MB (CK-2) Troponin T NT-Pro-B Natriuret Pep Total Protein Albumin Triglycerides TSH Arterial Blood Glucose 167 H Arterial Blood Ionized Calcium Urine pH Urine WBC (Auto) Urine Creatinine 10/25/20 10/26/20 10/26/20 18:20 00:20 06:08 WBC RBC Hgb Hct RDW Lymph % (Auto) Johnson % (Auto) Eos % (Auto) Lymph # (Auto) Johnson # (Auto) Eos # (Auto) Seg Neutrophils % Lymphocytes % (Manual) Monocytes % (Manual) Seg Neutrophils # Seg Neutrophils # Man Lymphocytes # (Manual) Monocytes # (Manual) D-Dimer Heparin Anti-Xa Level ABG pH POC ABG pCO2 POC ABG pO2 ABG pO2 ABG HCO3 ABG O2 Saturation ABG Base Excess ABG Hemoglobin ABG Oxyhemoglobin ABG Sodium ABG Potassium ABG Chloride ABG Glucose VBG pH Oxyhemoglobin Carboxyhemoglobin Sodium Potassium Chloride Carbon Dioxide BUN Creatinine Glucose POC Glucose 127 H 108 H 119 H Lactic Acid Calcium Phosphorus Magnesium Total Bilirubin AST ALT Ammonia Lactate Dehydrogenase Total Creatine Kinase CK-MB (CK-2) Troponin T NT-Pro-B Natriuret Pep Total Protein Albumin Triglycerides TSH Arterial Blood Glucose Arterial Blood Ionized Calcium Urine pH Urine WBC (Auto) Urine Creatinine 10/26/20 10/26/20 10/26/20 07:38 07:38 11:28 WBC 13.5 H RBC 3.37 L Hgb 9.8 L Hct 30.0 L RDW Lymph % (Auto) Johnson % (Auto) Eos % (Auto) Lymph # (Auto) Johnson # (Auto) Eos # (Auto) Seg Neutrophils % Lymphocytes % (Manual) Monocytes % (Manual) Seg Neutrophils # Seg Neutrophils # Man Lymphocytes # (Manual) Monocytes # (Manual) D-Dimer Heparin Anti-Xa Level ABG pH POC ABG pCO2 POC ABG pO2 ABG pO2 ABG HCO3 ABG O2 Saturation ABG Base Excess ABG Hemoglobin ABG Oxyhemoglobin ABG Sodium ABG Potassium ABG Chloride ABG Glucose VBG pH Oxyhemoglobin Carboxyhemoglobin Sodium 149 H Potassium Chloride 107.6 H Carbon Dioxide 34 H BUN 49 H Creatinine 1.4 H Glucose 137 H POC Glucose 148 H Lactic Acid Calcium Phosphorus Magnesium Total Bilirubin AST ALT Ammonia Lactate Dehydrogenase Total Creatine Kinase CK-MB (CK-2) Troponin T NT-Pro-B Natriuret Pep Total Protein Albumin Triglycerides TSH Arterial Blood Glucose Arterial Blood Ionized Calcium Urine pH Urine WBC (Auto) Urine Creatinine 10/26/20 10/26/20 10/27/20 18:17 23:37 05:08 WBC RBC Hgb Hct RDW Lymph % (Auto) Johnson % (Auto) Eos % (Auto) Lymph # (Auto) Johnson # (Auto) Eos # (Auto) Seg Neutrophils % Lymphocytes % (Manual) Monocytes % (Manual) Seg Neutrophils # Seg Neutrophils # Man Lymphocytes # (Manual) Monocytes # (Manual) D-Dimer Heparin Anti-Xa Level ABG pH POC ABG pCO2 POC ABG pO2 ABG pO2 ABG HCO3 ABG O2 Saturation ABG Base Excess ABG Hemoglobin ABG Oxyhemoglobin ABG Sodium ABG Potassium ABG Chloride ABG Glucose VBG pH Oxyhemoglobin Carboxyhemoglobin Sodium Potassium Chloride Carbon Dioxide BUN Creatinine Glucose POC Glucose 121 H 152 H 120 H Lactic Acid Calcium Phosphorus Magnesium Total Bilirubin AST ALT Ammonia Lactate Dehydrogenase Total Creatine Kinase CK-MB (CK-2) Troponin T NT-Pro-B Natriuret Pep Total Protein Albumin Triglycerides TSH Arterial Blood Glucose Arterial Blood Ionized Calcium Urine pH Urine WBC (Auto) Urine Creatinine 10/27/20 10/27/20 10/27/20 07:30 07:30 11:59 WBC RBC 3.46 L Hgb 10.2 L Hct 30.9 L RDW Lymph % (Auto) Johnson % (Auto) Eos % (Auto) Lymph # (Auto) Johnson # (Auto) Eos # (Auto) Seg Neutrophils % Lymphocytes % (Manual) Monocytes % (Manual) Seg Neutrophils # Seg Neutrophils # Man Lymphocytes # (Manual) Monocytes # (Manual) D-Dimer Heparin Anti-Xa Level ABG pH POC ABG pCO2 POC ABG pO2 ABG pO2 ABG HCO3 ABG O2 Saturation ABG Base Excess ABG Hemoglobin ABG Oxyhemoglobin ABG Sodium ABG Potassium ABG Chloride ABG Glucose VBG pH Oxyhemoglobin Carboxyhemoglobin Sodium 146 H Potassium Chloride Carbon Dioxide 34 H BUN 45 H Creatinine Glucose 131 H POC Glucose 143 H Lactic Acid Calcium Phosphorus Magnesium Total Bilirubin AST ALT Ammonia Lactate Dehydrogenase Total Creatine Kinase CK-MB (CK-2) Troponin T NT-Pro-B Natriuret Pep Total Protein Albumin Triglycerides TSH Arterial Blood Glucose Arterial Blood Ionized Calcium Urine pH Urine WBC (Auto) Urine Creatinine 10/27/20 10/27/20 10/28/20 18:52 23:03 07:00 WBC RBC Hgb Hct RDW Lymph % (Auto) Johnson % (Auto) Eos % (Auto) Lymph # (Auto) Johnson # (Auto) Eos # (Auto) Seg Neutrophils % Lymphocytes % (Manual) Monocytes % (Manual) Seg Neutrophils # Seg Neutrophils # Man Lymphocytes # (Manual) Monocytes # (Manual) D-Dimer Heparin Anti-Xa Level ABG pH POC ABG pCO2 POC ABG pO2 ABG pO2 ABG HCO3 ABG O2 Saturation ABG Base Excess ABG Hemoglobin ABG Oxyhemoglobin ABG Sodium ABG Potassium ABG Chloride ABG Glucose VBG pH Oxyhemoglobin Carboxyhemoglobin Sodium 147 H Potassium Chloride Carbon Dioxide 35 H BUN 39 H Creatinine Glucose 133 H POC Glucose 119 H 158 H Lactic Acid Calcium Phosphorus Magnesium Total Bilirubin AST ALT Ammonia Lactate Dehydrogenase Total Creatine Kinase CK-MB (CK-2) Troponin T NT-Pro-B Natriuret Pep Total Protein Albumin Triglycerides TSH Arterial Blood Glucose Arterial Blood Ionized Calcium Urine pH Urine WBC (Auto) Urine Creatinine 10/28/20 10/28/20 10/28/20 09:00 11:47 17:15 WBC 12.5 H RBC 3.58 L Hgb 10.5 L Hct 32.1 L RDW Lymph % (Auto) Johnson % (Auto) Eos % (Auto) Lymph # (Auto) Johnson # (Auto) Eos # (Auto) Seg Neutrophils % Lymphocytes % (Manual) Monocytes % (Manual) Seg Neutrophils # Seg Neutrophils # Man Lymphocytes # (Manual) Monocytes # (Manual) D-Dimer Heparin Anti-Xa Level ABG pH POC ABG pCO2 POC ABG pO2 ABG pO2 ABG HCO3 ABG O2 Saturation ABG Base Excess ABG Hemoglobin ABG Oxyhemoglobin ABG Sodium ABG Potassium ABG Chloride ABG Glucose VBG pH Oxyhemoglobin Carboxyhemoglobin Sodium Potassium Chloride Carbon Dioxide BUN Creatinine Glucose POC Glucose 129 H 109 H Lactic Acid Calcium Phosphorus Magnesium Total Bilirubin AST ALT Ammonia Lactate Dehydrogenase Total Creatine Kinase CK-MB (CK-2) Troponin T NT-Pro-B Natriuret Pep Total Protein Albumin Triglycerides TSH Arterial Blood Glucose Arterial Blood Ionized Calcium Urine pH Urine WBC (Auto) Urine Creatinine 10/28/20 10/29/20 10/29/20 23:31 04:23 04:23 WBC 13.6 H RBC 3.47 L Hgb 10.5 L Hct 30.7 L RDW 15.4 H Lymph % (Auto) Johnson % (Auto) Eos % (Auto) Lymph # (Auto) Johnson # (Auto) Eos # (Auto) Seg Neutrophils % Lymphocytes % (Manual) Monocytes % (Manual) Seg Neutrophils # Seg Neutrophils # Man Lymphocytes # (Manual) Monocytes # (Manual) D-Dimer Heparin Anti-Xa Level ABG pH POC ABG pCO2 POC ABG pO2 ABG pO2 ABG HCO3 ABG O2 Saturation ABG Base Excess ABG Hemoglobin ABG Oxyhemoglobin ABG Sodium ABG Potassium ABG Chloride ABG Glucose VBG pH Oxyhemoglobin Carboxyhemoglobin Sodium Potassium Chloride Carbon Dioxide 35 H BUN 34 H Creatinine Glucose 107 H POC Glucose 138 H Lactic Acid Calcium Phosphorus Magnesium Total Bilirubin AST ALT Ammonia Lactate Dehydrogenase Total Creatine Kinase CK-MB (CK-2) Troponin T NT-Pro-B Natriuret Pep Total Protein Albumin Triglycerides TSH Arterial Blood Glucose Arterial Blood Ionized Calcium Urine pH Urine WBC (Auto) Urine Creatinine 10/29/20 10/29/20 10/29/20 05:21 11:49 23:19 WBC RBC Hgb Hct RDW Lymph % (Auto) Johnson % (Auto) Eos % (Auto) Lymph # (Auto) Johnson # (Auto) Eos # (Auto) Seg Neutrophils % Lymphocytes % (Manual) Monocytes % (Manual) Seg Neutrophils # Seg Neutrophils # Man Lymphocytes # (Manual) Monocytes # (Manual) D-Dimer Heparin Anti-Xa Level ABG pH POC ABG pCO2 POC ABG pO2 ABG pO2 ABG HCO3 ABG O2 Saturation ABG Base Excess ABG Hemoglobin ABG Oxyhemoglobin ABG Sodium ABG Potassium ABG Chloride ABG Glucose VBG pH Oxyhemoglobin Carboxyhemoglobin Sodium Potassium Chloride Carbon Dioxide BUN Creatinine Glucose POC Glucose 115 H 124 H 129 H Lactic Acid Calcium Phosphorus Magnesium Total Bilirubin AST ALT Ammonia Lactate Dehydrogenase Total Creatine Kinase CK-MB (CK-2) Troponin T NT-Pro-B Natriuret Pep Total Protein Albumin Triglycerides TSH Arterial Blood Glucose Arterial Blood Ionized Calcium Urine pH Urine WBC (Auto) Urine Creatinine 10/30/20 10/30/20 10/30/20 04:59 05:10 11:52 WBC RBC Hgb Hct RDW Lymph % (Auto) Johnson % (Auto) Eos % (Auto) Lymph # (Auto) Johnson # (Auto) Eos # (Auto) Seg Neutrophils % Lymphocytes % (Manual) Monocytes % (Manual) Seg Neutrophils # Seg Neutrophils # Man Lymphocytes # (Manual) Monocytes # (Manual) D-Dimer Heparin Anti-Xa Level ABG pH POC ABG pCO2 POC ABG pO2 ABG pO2 ABG HCO3 ABG O2 Saturation ABG Base Excess ABG Hemoglobin ABG Oxyhemoglobin ABG Sodium ABG Potassium ABG Chloride ABG Glucose VBG pH Oxyhemoglobin Carboxyhemoglobin Sodium Potassium Chloride Carbon Dioxide 34 H BUN 33 H Creatinine Glucose 128 H POC Glucose 126 H 132 H Lactic Acid Calcium Phosphorus Magnesium Total Bilirubin AST ALT Ammonia Lactate Dehydrogenase Total Creatine Kinase CK-MB (CK-2) Troponin T NT-Pro-B Natriuret Pep Total Protein Albumin Triglycerides TSH Arterial Blood Glucose Arterial Blood Ionized Calcium Urine pH Urine WBC (Auto) Urine Creatinine 10/30/20 10/30/20 10/31/20 16:59 23:19 04:00 WBC RBC Hgb Hct RDW Lymph % (Auto) Johnson % (Auto) Eos % (Auto) Lymph # (Auto) Johnson # (Auto) Eos # (Auto) Seg Neutrophils % Lymphocytes % (Manual) Monocytes % (Manual) Seg Neutrophils # Seg Neutrophils # Man Lymphocytes # (Manual) Monocytes # (Manual) D-Dimer Heparin Anti-Xa Level ABG pH POC ABG pCO2 POC ABG pO2 ABG pO2 ABG HCO3 ABG O2 Saturation ABG Base Excess ABG Hemoglobin ABG Oxyhemoglobin ABG Sodium ABG Potassium ABG Chloride ABG Glucose VBG pH Oxyhemoglobin Carboxyhemoglobin Sodium Potassium Chloride Carbon Dioxide 38 H BUN 32 H Creatinine Glucose 121 H POC Glucose 118 H 138 H Lactic Acid Calcium Phosphorus Magnesium Total Bilirubin AST ALT Ammonia Lactate Dehydrogenase Total Creatine Kinase CK-MB (CK-2) Troponin T NT-Pro-B Natriuret Pep Total Protein Albumin Triglycerides TSH Arterial Blood Glucose Arterial Blood Ionized Calcium Urine pH Urine WBC (Auto) Urine Creatinine 10/31/20 10/31/20 10/31/20 05:13 11:09 16:17 WBC RBC Hgb Hct RDW Lymph % (Auto) Johnson % (Auto) Eos % (Auto) Lymph # (Auto) Johnson # (Auto) Eos # (Auto) Seg Neutrophils % Lymphocytes % (Manual) Monocytes % (Manual) Seg Neutrophils # Seg Neutrophils # Man Lymphocytes # (Manual) Monocytes # (Manual) D-Dimer Heparin Anti-Xa Level ABG pH POC ABG pCO2 71.1 H POC ABG pO2 67.4 L ABG pO2 ABG HCO3 ABG O2 Saturation ABG Base Excess ABG Hemoglobin 10.9 L ABG Oxyhemoglobin 90.7 L ABG Sodium ABG Potassium ABG Chloride ABG Glucose 134 H VBG pH Oxyhemoglobin Carboxyhemoglobin Sodium Potassium Chloride Carbon Dioxide BUN Creatinine Glucose POC Glucose 110 H 138 H Lactic Acid Calcium Phosphorus Magnesium Total Bilirubin AST ALT Ammonia Lactate Dehydrogenase Total Creatine Kinase CK-MB (CK-2) Troponin T NT-Pro-B Natriuret Pep Total Protein Albumin Triglycerides TSH Arterial Blood Glucose 134 H Arterial Blood Ionized Calcium Urine pH Urine WBC (Auto) Urine Creatinine 10/31/20 10/31/20 11/01/20 18:16 23:56 04:09 WBC 11.3 H RBC 3.05 L Hgb 9.0 L Hct 27.3 L RDW Lymph % (Auto) Johnson % (Auto) Eos % (Auto) Lymph # (Auto) Johnson # (Auto) Eos # (Auto) Seg Neutrophils % Lymphocytes % (Manual) Monocytes % (Manual) Seg Neutrophils # Seg Neutrophils # Man Lymphocytes # (Manual) Monocytes # (Manual) D-Dimer Heparin Anti-Xa Level ABG pH POC ABG pCO2 POC ABG pO2 ABG pO2 ABG HCO3 ABG O2 Saturation ABG Base Excess ABG Hemoglobin ABG Oxyhemoglobin ABG Sodium ABG Potassium ABG Chloride ABG Glucose VBG pH Oxyhemoglobin Carboxyhemoglobin Sodium Potassium Chloride Carbon Dioxide BUN Creatinine Glucose POC Glucose 135 H 122 H Lactic Acid Calcium Phosphorus Magnesium Total Bilirubin AST ALT Ammonia Lactate Dehydrogenase Total Creatine Kinase CK-MB (CK-2) Troponin T NT-Pro-B Natriuret Pep Total Protein Albumin Triglycerides TSH Arterial Blood Glucose Arterial Blood Ionized Calcium Urine pH Urine WBC (Auto) Urine Creatinine 11/01/20 11/01/20 11/01/20 05:10 11:51 17:17 WBC RBC Hgb Hct RDW Lymph % (Auto) Johnson % (Auto) Eos % (Auto) Lymph # (Auto) Johnson # (Auto) Eos # (Auto) Seg Neutrophils % Lymphocytes % (Manual) Monocytes % (Manual) Seg Neutrophils # Seg Neutrophils # Man Lymphocytes # (Manual) Monocytes # (Manual) D-Dimer Heparin Anti-Xa Level ABG pH POC ABG pCO2 POC ABG pO2 ABG pO2 ABG HCO3 ABG O2 Saturation ABG Base Excess ABG Hemoglobin ABG Oxyhemoglobin ABG Sodium ABG Potassium ABG Chloride ABG Glucose VBG pH Oxyhemoglobin Carboxyhemoglobin Sodium Potassium Chloride Carbon Dioxide BUN Creatinine Glucose POC Glucose 123 H 123 H 120 H Lactic Acid Calcium Phosphorus Magnesium Total Bilirubin AST ALT Ammonia Lactate Dehydrogenase Total Creatine Kinase CK-MB (CK-2) Troponin T NT-Pro-B Natriuret Pep Total Protein Albumin Triglycerides TSH Arterial Blood Glucose Arterial Blood Ionized Calcium Urine pH Urine WBC (Auto) Urine Creatinine 11/02/20 11/02/20 11/02/20 03:14 05:37 05:37 WBC RBC Hgb 9.8 L Hct 29.5 L RDW Lymph % (Auto) Johnson % (Auto) Eos % (Auto) Lymph # (Auto) Johnson # (Auto) Eos # (Auto) Seg Neutrophils % Lymphocytes % (Manual) Monocytes % (Manual) Seg Neutrophils # Seg Neutrophils # Man Lymphocytes # (Manual) Monocytes # (Manual) D-Dimer Heparin Anti-Xa Level ABG pH POC ABG pCO2 58.9 H POC ABG pO2 79.9 L ABG pO2 ABG HCO3 ABG O2 Saturation ABG Base Excess ABG Hemoglobin 10.6 L ABG Oxyhemoglobin ABG Sodium ABG Potassium ABG Chloride ABG Glucose 110 H VBG pH Oxyhemoglobin Carboxyhemoglobin Sodium Potassium Chloride Carbon Dioxide 37 H BUN 28 H Creatinine Glucose 106 H POC Glucose Lactic Acid Calcium Phosphorus Magnesium Total Bilirubin AST ALT Ammonia Lactate Dehydrogenase Total Creatine Kinase CK-MB (CK-2) Troponin T NT-Pro-B Natriuret Pep Total Protein Albumin Triglycerides TSH Arterial Blood Glucose 110 H Arterial Blood Ionized Calcium Urine pH Urine WBC (Auto) Urine Creatinine 11/02/20 11/03/20 11/03/20 23:29 04:45 04:45 WBC 11.8 H RBC 3.07 L Hgb 9.0 L Hct 27.2 L RDW Lymph % (Auto) 11.4 L Johnson % (Auto) 9.5 H Eos % (Auto) Lymph # (Auto) Johnson # (Auto) 1.1 H Eos # (Auto) Seg Neutrophils % 75.9 H Lymphocytes % (Manual) Monocytes % (Manual) Seg Neutrophils # 9.0 H Seg Neutrophils # Man Lymphocytes # (Manual) Monocytes # (Manual) D-Dimer Heparin Anti-Xa Level ABG pH POC ABG pCO2 POC ABG pO2 ABG pO2 ABG HCO3 ABG O2 Saturation ABG Base Excess ABG Hemoglobin ABG Oxyhemoglobin ABG Sodium ABG Potassium ABG Chloride ABG Glucose VBG pH Oxyhemoglobin Carboxyhemoglobin Sodium 146 H Potassium Chloride Carbon Dioxide 39 H BUN 26 H Creatinine Glucose POC Glucose 129 H Lactic Acid Calcium Phosphorus Magnesium Total Bilirubin AST ALT Ammonia Lactate Dehydrogenase Total Creatine Kinase CK-MB (CK-2) Troponin T NT-Pro-B Natriuret Pep Total Protein Albumin Triglycerides TSH Arterial Blood Glucose Arterial Blood Ionized Calcium Urine pH Urine WBC (Auto) Urine Creatinine 11/03/20 11/03/20 11/03/20 05:05 11:51 17:43 WBC RBC Hgb Hct RDW Lymph % (Auto) Johnson % (Auto) Eos % (Auto) Lymph # (Auto) Johnson # (Auto) Eos # (Auto) Seg Neutrophils % Lymphocytes % (Manual) Monocytes % (Manual) Seg Neutrophils # Seg Neutrophils # Man Lymphocytes # (Manual) Monocytes # (Manual) D-Dimer Heparin Anti-Xa Level ABG pH 7.452 H POC ABG pCO2 55.4 H POC ABG pO2 129.1 H ABG pO2 ABG HCO3 ABG O2 Saturation ABG Base Excess ABG Hemoglobin 9.3 L ABG Oxyhemoglobin ABG Sodium ABG Potassium ABG Chloride ABG Glucose 99 H VBG pH Oxyhemoglobin Carboxyhemoglobin 1.7 H Sodium Potassium Chloride Carbon Dioxide BUN Creatinine Glucose POC Glucose 131 H 125 H Lactic Acid Calcium Phosphorus Magnesium Total Bilirubin AST ALT Ammonia Lactate Dehydrogenase Total Creatine Kinase CK-MB (CK-2) Troponin T NT-Pro-B Natriuret Pep Total Protein Albumin Triglycerides TSH Arterial Blood Glucose 99 H Arterial Blood Ionized Calcium Urine pH Urine WBC (Auto) Urine Creatinine 11/03/20 11/04/20 11/04/20 23:27 04:00 05:10 WBC RBC Hgb Hct RDW Lymph % (Auto) Johnson % (Auto) Eos % (Auto) Lymph # (Auto) Johnson # (Auto) Eos # (Auto) Seg Neutrophils % Lymphocytes % (Manual) Monocytes % (Manual) Seg Neutrophils # Seg Neutrophils # Man Lymphocytes # (Manual) Monocytes # (Manual) D-Dimer Heparin Anti-Xa Level ABG pH POC ABG pCO2 POC ABG pO2 ABG pO2 ABG HCO3 ABG O2 Saturation ABG Base Excess ABG Hemoglobin ABG Oxyhemoglobin ABG Sodium ABG Potassium ABG Chloride ABG Glucose VBG pH Oxyhemoglobin Carboxyhemoglobin Sodium Potassium Chloride 95.2 L Carbon Dioxide 40 H BUN 26 H Creatinine Glucose 128 H POC Glucose 148 H 126 H Lactic Acid Calcium Phosphorus Magnesium Total Bilirubin AST ALT Ammonia Lactate Dehydrogenase Total Creatine Kinase CK-MB (CK-2) Troponin T NT-Pro-B Natriuret Pep Total Protein Albumin Triglycerides TSH Arterial Blood Glucose Arterial Blood Ionized Calcium Urine pH Urine WBC (Auto) Urine Creatinine 11/04/20 11/04/20 11/04/20 11:39 18:00 21:18 WBC RBC Hgb Hct RDW Lymph % (Auto) Johnson % (Auto) Eos % (Auto) Lymph # (Auto) Johnson # (Auto) Eos # (Auto) Seg Neutrophils % Lymphocytes % (Manual) Monocytes % (Manual) Seg Neutrophils # Seg Neutrophils # Man Lymphocytes # (Manual) Monocytes # (Manual) D-Dimer Heparin Anti-Xa Level ABG pH 7.511 H POC ABG pCO2 49.0 H POC ABG pO2 ABG pO2 ABG HCO3 ABG O2 Saturation ABG Base Excess ABG Hemoglobin 9.5 L ABG Oxyhemoglobin ABG Sodium 135.7 L ABG Potassium ABG Chloride ABG Glucose 152 H VBG pH Oxyhemoglobin Carboxyhemoglobin Sodium Potassium Chloride Carbon Dioxide BUN Creatinine Glucose POC Glucose 142 H 130 H Lactic Acid Calcium Phosphorus Magnesium Total Bilirubin AST ALT Ammonia Lactate Dehydrogenase Total Creatine Kinase CK-MB (CK-2) Troponin T NT-Pro-B Natriuret Pep Total Protein Albumin Triglycerides TSH Arterial Blood Glucose 152 H Arterial Blood Ionized Calcium 4.3 L Urine pH Urine WBC (Auto) Urine Creatinine 11/04/20 11/05/20 11/05/20 23:19 03:30 03:30 WBC RBC 3.02 L Hgb 9.1 L Hct 26.7 L RDW Lymph % (Auto) Johnson % (Auto) Eos % (Auto) Lymph # (Auto) Johnson # (Auto) Eos # (Auto) Seg Neutrophils % Lymphocytes % (Manual) Monocytes % (Manual) Seg Neutrophils # Seg Neutrophils # Man Lymphocytes # (Manual) Monocytes # (Manual) D-Dimer Heparin Anti-Xa Level ABG pH POC ABG pCO2 POC ABG pO2 ABG pO2 ABG HCO3 ABG O2 Saturation ABG Base Excess ABG Hemoglobin ABG Oxyhemoglobin ABG Sodium ABG Potassium ABG Chloride ABG Glucose VBG pH Oxyhemoglobin Carboxyhemoglobin Sodium Potassium Chloride 93.6 L Carbon Dioxide 40 H BUN 24 H Creatinine Glucose 121 H POC Glucose 126 H Lactic Acid Calcium Phosphorus Magnesium Total Bilirubin AST ALT Ammonia Lactate Dehydrogenase Total Creatine Kinase CK-MB (CK-2) Troponin T NT-Pro-B Natriuret Pep Total Protein Albumin Triglycerides TSH Arterial Blood Glucose Arterial Blood Ionized Calcium Urine pH Urine WBC (Auto) Urine Creatinine 11/05/20 11/05/20 11/05/20 05:24 11:37 17:37 WBC RBC Hgb Hct RDW Lymph % (Auto) Johnson % (Auto) Eos % (Auto) Lymph # (Auto) Johnson # (Auto) Eos # (Auto) Seg Neutrophils % Lymphocytes % (Manual) Monocytes % (Manual) Seg Neutrophils # Seg Neutrophils # Man Lymphocytes # (Manual) Monocytes # (Manual) D-Dimer Heparin Anti-Xa Level ABG pH POC ABG pCO2 POC ABG pO2 ABG pO2 ABG HCO3 ABG O2 Saturation ABG Base Excess ABG Hemoglobin ABG Oxyhemoglobin ABG Sodium ABG Potassium ABG Chloride ABG Glucose VBG pH Oxyhemoglobin Carboxyhemoglobin Sodium Potassium Chloride Carbon Dioxide BUN Creatinine Glucose POC Glucose 124 H 125 H 153 H Lactic Acid Calcium Phosphorus Magnesium Total Bilirubin AST ALT Ammonia Lactate Dehydrogenase Total Creatine Kinase CK-MB (CK-2) Troponin T NT-Pro-B Natriuret Pep Total Protein Albumin Triglycerides TSH Arterial Blood Glucose Arterial Blood Ionized Calcium Urine pH Urine WBC (Auto) Urine Creatinine 11/05/20 11/06/20 11/06/20 23:20 05:24 12:17 WBC RBC Hgb Hct RDW Lymph % (Auto) Johnson % (Auto) Eos % (Auto) Lymph # (Auto) Johnson # (Auto) Eos # (Auto) Seg Neutrophils % Lymphocytes % (Manual) Monocytes % (Manual) Seg Neutrophils # Seg Neutrophils # Man Lymphocytes # (Manual) Monocytes # (Manual) D-Dimer Heparin Anti-Xa Level ABG pH POC ABG pCO2 POC ABG pO2 ABG pO2 ABG HCO3 ABG O2 Saturation ABG Base Excess ABG Hemoglobin ABG Oxyhemoglobin ABG Sodium ABG Potassium ABG Chloride ABG Glucose VBG pH Oxyhemoglobin Carboxyhemoglobin Sodium Potassium Chloride Carbon Dioxide BUN Creatinine Glucose POC Glucose 133 H 143 H 139 H Lactic Acid Calcium Phosphorus Magnesium Total Bilirubin AST ALT Ammonia Lactate Dehydrogenase Total Creatine Kinase CK-MB (CK-2) Troponin T NT-Pro-B Natriuret Pep Total Protein Albumin Triglycerides TSH Arterial Blood Glucose Arterial Blood Ionized Calcium Urine pH Urine WBC (Auto) Urine Creatinine 11/06/20 11/06/20 11/07/20 17:38 23:26 04:50 WBC RBC 3.24 L Hgb 9.6 L Hct 29.0 L RDW Lymph % (Auto) Johnson % (Auto) 10.3 H Eos % (Auto) 6.9 H Lymph # (Auto) Johnson # (Auto) Eos # (Auto) 0.5 H Seg Neutrophils % Lymphocytes % (Manual) Monocytes % (Manual) Seg Neutrophils # Seg Neutrophils # Man Lymphocytes # (Manual) Monocytes # (Manual) D-Dimer Heparin Anti-Xa Level ABG pH POC ABG pCO2 POC ABG pO2 ABG pO2 ABG HCO3 ABG O2 Saturation ABG Base Excess ABG Hemoglobin ABG Oxyhemoglobin ABG Sodium ABG Potassium ABG Chloride ABG Glucose VBG pH Oxyhemoglobin Carboxyhemoglobin Sodium Potassium Chloride Carbon Dioxide BUN Creatinine Glucose POC Glucose 139 H 117 H Lactic Acid Calcium Phosphorus Magnesium Total Bilirubin AST ALT Ammonia Lactate Dehydrogenase Total Creatine Kinase CK-MB (CK-2) Troponin T NT-Pro-B Natriuret Pep Total Protein Albumin Triglycerides TSH Arterial Blood Glucose Arterial Blood Ionized Calcium Urine pH Urine WBC (Auto) Urine Creatinine 11/07/20 11/07/2021 04:50 05:10 12:22 WBC RBC Hgb Hct RDW Lymph % (Auto) Johnson % (Auto) Eos % (Auto) Lymph # (Auto) Johnson # (Auto) Eos # (Auto) Seg Neutrophils % Lymphocytes % (Manual) Monocytes % (Manual) Seg Neutrophils # Seg Neutrophils # Man Lymphocytes # (Manual) Monocytes # (Manual) D-Dimer Heparin Anti-Xa Level ABG pH POC ABG pCO2 POC ABG pO2 ABG pO2 ABG HCO3 ABG O2 Saturation ABG Base Excess ABG Hemoglobin ABG Oxyhemoglobin ABG Sodium ABG Potassium ABG Chloride ABG Glucose VBG pH Oxyhemoglobin Carboxyhemoglobin Sodium Potassium Chloride 97.2 L Carbon Dioxide 36 H BUN 25 H Creatinine Glucose 130 H POC Glucose 115 H 118 H Lactic Acid Calcium Phosphorus Magnesium Total Bilirubin AST ALT Ammonia Lactate Dehydrogenase Total Creatine Kinase CK-MB (CK-2) Troponin T NT-Pro-B Natriuret Pep Total Protein Albumin Triglycerides TSH Arterial Blood Glucose Arterial Blood Ionized Calcium Urine pH Urine WBC (Auto) Urine Creatinine 11/07/20 11/07/20 11/08/20 17:46 23:53 07:16 WBC RBC Hgb Hct RDW Lymph % (Auto) Johnson % (Auto) Eos % (Auto) Lymph # (Auto) Johnson # (Auto) Eos # (Auto) Seg Neutrophils % Lymphocytes % (Manual) Monocytes % (Manual) Seg Neutrophils # Seg Neutrophils # Man Lymphocytes # (Manual) Monocytes # (Manual) D-Dimer Heparin Anti-Xa Level ABG pH POC ABG pCO2 POC ABG pO2 ABG pO2 ABG HCO3 ABG O2 Saturation ABG Base Excess ABG Hemoglobin ABG Oxyhemoglobin ABG Sodium ABG Potassium ABG Chloride ABG Glucose VBG pH Oxyhemoglobin Carboxyhemoglobin Sodium Potassium Chloride Carbon Dioxide BUN Creatinine Glucose POC Glucose 150 H 141 H 134 H Lactic Acid Calcium Phosphorus Magnesium Total Bilirubin AST ALT Ammonia Lactate Dehydrogenase Total Creatine Kinase CK-MB (CK-2) Troponin T NT-Pro-B Natriuret Pep Total Protein Albumin Triglycerides TSH Arterial Blood Glucose Arterial Blood Ionized Calcium Urine pH Urine WBC (Auto) Urine Creatinine 11/08/20 11/08/20 11/08/20 11:35 17:59 23:50 WBC RBC Hgb Hct RDW Lymph % (Auto) Johnson % (Auto) Eos % (Auto) Lymph # (Auto) Johnson # (Auto) Eos # (Auto) Seg Neutrophils % Lymphocytes % (Manual) Monocytes % (Manual) Seg Neutrophils # Seg Neutrophils # Man Lymphocytes # (Manual) Monocytes # (Manual) D-Dimer Heparin Anti-Xa Level ABG pH POC ABG pCO2 POC ABG pO2 ABG pO2 ABG HCO3 ABG O2 Saturation ABG Base Excess ABG Hemoglobin ABG Oxyhemoglobin ABG Sodium ABG Potassium ABG Chloride ABG Glucose VBG pH Oxyhemoglobin Carboxyhemoglobin Sodium Potassium Chloride Carbon Dioxide BUN Creatinine Glucose POC Glucose 148 H 118 H 131 H Lactic Acid Calcium Phosphorus Magnesium Total Bilirubin AST ALT Ammonia Lactate Dehydrogenase Total Creatine Kinase CK-MB (CK-2) Troponin T NT-Pro-B Natriuret Pep Total Protein Albumin Triglycerides TSH Arterial Blood Glucose Arterial Blood Ionized Calcium Urine pH Urine WBC (Auto) Urine Creatinine 11/09/20 11/09/20 11/09/20 12:07 17:00 23:45 WBC RBC Hgb Hct RDW Lymph % (Auto) Johnson % (Auto) Eos % (Auto) Lymph # (Auto) Johnson # (Auto) Eos # (Auto) Seg Neutrophils % Lymphocytes % (Manual) Monocytes % (Manual) Seg Neutrophils # Seg Neutrophils # Man Lymphocytes # (Manual) Monocytes # (Manual) D-Dimer Heparin Anti-Xa Level ABG pH POC ABG pCO2 POC ABG pO2 ABG pO2 ABG HCO3 ABG O2 Saturation ABG Base Excess ABG Hemoglobin ABG Oxyhemoglobin ABG Sodium ABG Potassium ABG Chloride ABG Glucose VBG pH Oxyhemoglobin Carboxyhemoglobin Sodium Potassium Chloride Carbon Dioxide BUN Creatinine Glucose POC Glucose 133 H 126 H 129 H Lactic Acid Calcium Phosphorus Magnesium Total Bilirubin AST ALT Ammonia Lactate Dehydrogenase Total Creatine Kinase CK-MB (CK-2) Troponin T NT-Pro-B Natriuret Pep Total Protein Albumin Triglycerides TSH Arterial Blood Glucose Arterial Blood Ionized Calcium Urine pH Urine WBC (Auto) Urine Creatinine 11/10/20 11/10/20 11/10/20 05:43 11:47 17:56 WBC RBC Hgb Hct RDW Lymph % (Auto) Johnson % (Auto) Eos % (Auto) Lymph # (Auto) Johnson # (Auto) Eos # (Auto) Seg Neutrophils % Lymphocytes % (Manual) Monocytes % (Manual) Seg Neutrophils # Seg Neutrophils # Man Lymphocytes # (Manual) Monocytes # (Manual) D-Dimer Heparin Anti-Xa Level ABG pH POC ABG pCO2 POC ABG pO2 ABG pO2 ABG HCO3 ABG O2 Saturation ABG Base Excess ABG Hemoglobin ABG Oxyhemoglobin ABG Sodium ABG Potassium ABG Chloride ABG Glucose VBG pH Oxyhemoglobin Carboxyhemoglobin Sodium Potassium Chloride Carbon Dioxide BUN Creatinine Glucose POC Glucose 111 H 136 H 110 H Lactic Acid Calcium Phosphorus Magnesium Total Bilirubin AST ALT Ammonia Lactate Dehydrogenase Total Creatine Kinase CK-MB (CK-2) Troponin T NT-Pro-B Natriuret Pep Total Protein Albumin Triglycerides TSH Arterial Blood Glucose Arterial Blood Ionized Calcium Urine pH Urine WBC (Auto) Urine Creatinine 11/10/20 11/11/20 11/11/20 23:34 03:11 05:22 WBC RBC Hgb Hct RDW Lymph % (Auto) Johnson % (Auto) Eos % (Auto) Lymph # (Auto) Johnson # (Auto) Eos # (Auto) Seg Neutrophils % Lymphocytes % (Manual) Monocytes % (Manual) Seg Neutrophils # Seg Neutrophils # Man Lymphocytes # (Manual) Monocytes # (Manual) D-Dimer Heparin Anti-Xa Level ABG pH POC ABG pCO2 64.5 H POC ABG pO2 ABG pO2 ABG HCO3 ABG O2 Saturation ABG Base Excess ABG Hemoglobin 9.7 L ABG Oxyhemoglobin ABG Sodium ABG Potassium 5.0 H ABG Chloride ABG Glucose 148 H VBG pH Oxyhemoglobin Carboxyhemoglobin Sodium Potassium Chloride Carbon Dioxide BUN Creatinine Glucose POC Glucose 134 H 132 H Lactic Acid Calcium Phosphorus Magnesium Total Bilirubin AST ALT Ammonia Lactate Dehydrogenase Total Creatine Kinase CK-MB (CK-2) Troponin T NT-Pro-B Natriuret Pep Total Protein Albumin Triglycerides TSH Arterial Blood Glucose 148 H Arterial Blood Ionized Calcium Urine pH Urine WBC (Auto) Urine Creatinine 11/11/20 11/11/20 11/11/20 08:38 11:00 12:01 WBC RBC 2.79 L Hgb 8.4 L Hct 25.4 L RDW Lymph % (Auto) Johnson % (Auto) Eos % (Auto) Lymph # (Auto) Johnson # (Auto) Eos # (Auto) Seg Neutrophils % Lymphocytes % (Manual) Monocytes % (Manual) Seg Neutrophils # Seg Neutrophils # Man Lymphocytes # (Manual) Monocytes # (Manual) D-Dimer Heparin Anti-Xa Level ABG pH POC ABG pCO2 POC ABG pO2 ABG pO2 ABG HCO3 ABG O2 Saturation ABG Base Excess ABG Hemoglobin ABG Oxyhemoglobin ABG Sodium ABG Potassium ABG Chloride ABG Glucose VBG pH Oxyhemoglobin Carboxyhemoglobin Sodium 136 L Potassium Chloride 97.6 L Carbon Dioxide 35 H BUN 26 H Creatinine Glucose 133 H POC Glucose 142 H Lactic Acid Calcium 8.0 L Phosphorus Magnesium Total Bilirubin AST ALT Ammonia Lactate Dehydrogenase Total Creatine Kinase CK-MB (CK-2) Troponin T NT-Pro-B Natriuret Pep Total Protein Albumin Triglycerides TSH Arterial Blood Glucose Arterial Blood Ionized Calcium Urine pH Urine WBC (Auto) Urine Creatinine 11/11/20 11/12/20 11/12/20 23:12 05:31 07:41 WBC RBC Hgb Hct RDW Lymph % (Auto) Johnson % (Auto) Eos % (Auto) Lymph # (Auto) Johnson # (Auto) Eos # (Auto) Seg Neutrophils % Lymphocytes % (Manual) Monocytes % (Manual) Seg Neutrophils # Seg Neutrophils # Man Lymphocytes # (Manual) Monocytes # (Manual) D-Dimer Heparin Anti-Xa Level ABG pH POC ABG pCO2 POC ABG pO2 ABG pO2 ABG HCO3 ABG O2 Saturation ABG Base Excess ABG Hemoglobin ABG Oxyhemoglobin ABG Sodium ABG Potassium ABG Chloride ABG Glucose VBG pH Oxyhemoglobin Carboxyhemoglobin Sodium Potassium Chloride Carbon Dioxide BUN Creatinine Glucose POC Glucose 127 H 117 H 137 H Lactic Acid Calcium Phosphorus Magnesium Total Bilirubin AST ALT Ammonia Lactate Dehydrogenase Total Creatine Kinase CK-MB (CK-2) Troponin T NT-Pro-B Natriuret Pep Total Protein Albumin Triglycerides TSH Arterial Blood Glucose Arterial Blood Ionized Calcium Urine pH Urine WBC (Auto) Urine Creatinine 11/12/20 11/12/20 11/12/20 11:26 15:29 21:30 WBC RBC Hgb Hct RDW Lymph % (Auto) Johnson % (Auto) Eos % (Auto) Lymph # (Auto) Johnson # (Auto) Eos # (Auto) Seg Neutrophils % Lymphocytes % (Manual) Monocytes % (Manual) Seg Neutrophils # Seg Neutrophils # Man Lymphocytes # (Manual) Monocytes # (Manual) D-Dimer Heparin Anti-Xa Level ABG pH POC ABG pCO2 POC ABG pO2 ABG pO2 ABG HCO3 ABG O2 Saturation ABG Base Excess ABG Hemoglobin ABG Oxyhemoglobin ABG Sodium ABG Potassium ABG Chloride ABG Glucose VBG pH Oxyhemoglobin Carboxyhemoglobin Sodium Potassium Chloride Carbon Dioxide BUN Creatinine Glucose POC Glucose 130 H 146 H 123 H Lactic Acid Calcium Phosphorus Magnesium Total Bilirubin AST ALT Ammonia Lactate Dehydrogenase Total Creatine Kinase CK-MB (CK-2) Troponin T NT-Pro-B Natriuret Pep Total Protein Albumin Triglycerides TSH Arterial Blood Glucose Arterial Blood Ionized Calcium Urine pH Urine WBC (Auto) Urine Creatinine 11/13/20 11/13/20 11/13/20 05:52 07:37 15:34 WBC RBC Hgb Hct RDW Lymph % (Auto) Johnson % (Auto) Eos % (Auto) Lymph # (Auto) Johnson # (Auto) Eos # (Auto) Seg Neutrophils % Lymphocytes % (Manual) Monocytes % (Manual) Seg Neutrophils # Seg Neutrophils # Man Lymphocytes # (Manual) Monocytes # (Manual) D-Dimer Heparin Anti-Xa Level ABG pH POC ABG pCO2 POC ABG pO2 ABG pO2 ABG HCO3 ABG O2 Saturation ABG Base Excess ABG Hemoglobin ABG Oxyhemoglobin ABG Sodium ABG Potassium ABG Chloride ABG Glucose VBG pH Oxyhemoglobin Carboxyhemoglobin Sodium Potassium Chloride Carbon Dioxide BUN Creatinine Glucose POC Glucose 142 H 109 H 127 H Lactic Acid Calcium Phosphorus Magnesium Total Bilirubin AST ALT Ammonia Lactate Dehydrogenase Total Creatine Kinase CK-MB (CK-2) Troponin T NT-Pro-B Natriuret Pep Total Protein Albumin Triglycerides TSH Arterial Blood Glucose Arterial Blood Ionized Calcium Urine pH Urine WBC (Auto) Urine Creatinine 11/13/20 11/13/20 11/13/20 16:43 16:52 21:18 WBC RBC Hgb Hct RDW Lymph % (Auto) Johnson % (Auto) Eos % (Auto) Lymph # (Auto) Johnson # (Auto) Eos # (Auto) Seg Neutrophils % Lymphocytes % (Manual) Monocytes % (Manual) Seg Neutrophils # Seg Neutrophils # Man Lymphocytes # (Manual) Monocytes # (Manual) D-Dimer Heparin Anti-Xa Level ABG pH POC ABG pCO2 68.4 H POC ABG pO2 ABG pO2 ABG HCO3 ABG O2 Saturation ABG Base Excess ABG Hemoglobin 10.0 L ABG Oxyhemoglobin ABG Sodium ABG Potassium ABG Chloride ABG Glucose 133 H VBG pH Oxyhemoglobin Carboxyhemoglobin Sodium Potassium Chloride Carbon Dioxide BUN Creatinine Glucose POC Glucose 111 H 108 H Lactic Acid Calcium Phosphorus Magnesium Total Bilirubin AST ALT Ammonia Lactate Dehydrogenase Total Creatine Kinase CK-MB (CK-2) Troponin T NT-Pro-B Natriuret Pep Total Protein Albumin Triglycerides TSH Arterial Blood Glucose 133 H Arterial Blood Ionized Calcium Urine pH Urine WBC (Auto) Urine Creatinine 11/14/20 11/14/20 11/14/20 12:07 18:16 23:21 WBC RBC Hgb Hct RDW Lymph % (Auto) Johnson % (Auto) Eos % (Auto) Lymph # (Auto) Johnson # (Auto) Eos # (Auto) Seg Neutrophils % Lymphocytes % (Manual) Monocytes % (Manual) Seg Neutrophils # Seg Neutrophils # Man Lymphocytes # (Manual) Monocytes # (Manual) D-Dimer Heparin Anti-Xa Level ABG pH POC ABG pCO2 POC ABG pO2 ABG pO2 ABG HCO3 ABG O2 Saturation ABG Base Excess ABG Hemoglobin ABG Oxyhemoglobin ABG Sodium ABG Potassium ABG Chloride ABG Glucose VBG pH Oxyhemoglobin Carboxyhemoglobin Sodium Potassium Chloride Carbon Dioxide BUN Creatinine Glucose POC Glucose 107 H 109 H 114 H Lactic Acid Calcium Phosphorus Magnesium Total Bilirubin AST ALT Ammonia Lactate Dehydrogenase Total Creatine Kinase CK-MB (CK-2) Troponin T NT-Pro-B Natriuret Pep Total Protein Albumin Triglycerides TSH Arterial Blood Glucose Arterial Blood Ionized Calcium Urine pH Urine WBC (Auto) Urine Creatinine Allied health notes reviewed: nursing
--- NOTE | 2020-11-15 13:11 | Progress Note ---
Assessment and Plan Assessment and plan: This is a 55-year-old male with hypertension, asthma, obesity who was admitted on 10/10 after cardiac arrest x2 (supposedly after COVID-19 vaccine injection), sepsis, right-sided pneumonia, NSTEMI type II, acute heart failure, acute hypoxic respiratory failure, acute kidney injury and anoxic brain injury. Sepsis s/p multiple Cardiac Arrests s/p right-sided pneumonia MRSA in tracheal aspirate NSTEMI type II Acute heart failure Afib/Aflutter Acute hypoxic respiratory failure Acute kidney injury (improved) Transaminitis HTN Obesity Seizure disorder -Infectious disease, CCM, GI, nephrology, cardiology, surgery consulted, appreciate recommendations -s/p Antibiotic therapy -10/18 recultured (blood/sputum/nasal discharge and urinalysis), tracheal aspirate with MRSA -S/p Linezolid -Continue antihypertensive regimen -s/p IV amiodarone for A. fib/a flutter now on p.o. beta-shital -Trend CBC, BMP, LFT -trach/peg 10/27 -Mucomyst -Keppra -Avoid nephrotoxic medications, strict intake and output, renal ultrasound shows no obstruction -10/10 echocardiogram shows left internal systolic function normal, moderate concentric left ventricle hypertrophy, mild to side diastolic dysfunction, LVEF 55 to 60% with no pericardial effusion -Bilateral Doppler ultrasound negative for DVT/SVT which shows bilateral popliteal cysts -MRI Brain shows restricted diffusion and increased T2 signal cerebral cortex which can be seen in the setting of anoxic brain injury and/ or status epilepticus. -Repeat EEG shows significant generalized slowing compatible with to moderate severe diffuse neuropathy recently compatible with anoxic/ischemic encephalopathy GI/DVT prophylaxis: SCDs to bilateral lower extremities while in bed, PPI, Heparin subq Dispo: [facility] History Interval history: This is a 55-year-old male with hypertension, asthma, obesity in the emergency by presented to the emergency department on 10/10 after receiving a Covid vaccine being found unresponsive in his car in the emergency room bay with no pulse and ACLS protocol was initiated from his car to emergency room #21 where it was continued. Patient was intubated after ROSC was achieved and a central line was placed and the patient was initiated on pressors. In the emergency room patient seems to have seizure-like activity and then collapsed and was unresponsive with no palpable pulse and ACLS was again initiated patient with achievement of ROSC. Patient again coded with ACLS protocol in the CT room. Upon arrival to the ICU patient again coded and ROSC was achieved and he was placed on epinephrine, Lasix, heparin and sodium bicarbonate drip and sedated with propofol. An NG tube was placed, A-line was placed. Patient was admitted to the hospitalist service with consult to CCM, nephrology, infectious disease and cardiology. 10/11: Patient COVID-19 PCR is pending and he remains on mechanical ventilation, examination on assist control 400/30/12/0.95. Patient is scheduled for an echocardiogram and we will obtain bilateral lower extremity Doppler ultrasound given elevated D-dimer. Patient was supposed to have a CTA chest when he coded yesterday. We will begin trickle feeding. This morning patient was on a heparin drip and was noted to have bloody drainage from his NG tube. Heparin drip was discontinued. 10/12: Patient remains on propofol and Lasix drip at the time my examination and he is on assist control 400/25/12/0.60. Patient is hypokalemic this morning which was repleted. Nephrology discontinued Lasix drip and Diamox. Patient is hypertensive and has been started on hydralazine and beta-shital IV. He has been titrated off his vasopressors since yesterday. Vancomycin discontinued. Patient is currently on cefepime and azithromycin. 10/13: Sedation vacation attempted today and patient was not responsive to verbal or painful stimuli, does not track or focus or follow commands. This morning the patient has some respiratory alkalosis on ABG, hypernatremia and metabolic alkalosis on BMP. His kidney functions has improved slightly. Patient still has leukocytosis and infectious disease was like to continue antibiotic therapy. GI evaluated the patient yesterday and started the patient on PPI does not plan to scope at this time. At the time my examination patient assist-control 400/20/12/0.40 and sedated on propofol at 20. 4/2: GI has recommended a CT abdomen since there is increased output from OG tube and an MRI brain without contrast has been ordered per neurology recommendations. EEG is pending and the patient has been started on Keppra per neurology.. Nutrition has been consulted for initiation of parenteral nutrition. Patient remains sedated with propofol and his hypernatremia, leukocytosis, acute kidney injury and metabolic alkalosis is improving. Patient has hypokalemia today which was repleted. At the time of my examination patient was on assist control 400/14/10/0.40 and CCM has dropped his rate to 12 and PEEP to 8. We have labs ordered for a.m. He was given a clonidine patch given persistent hypertension and he remains on D5 water per nephrology. 10/15: This morning patient was started to have a low-grade fever and he will continue antibiotic therapy per infectious disease. He will remove Tuttle catheter today and place a condom cath. Patient's renal function is worsening with a BUN/creatinine of 57/2.4 today and he has hyperphosphatemia at 5.2. This morning the time my examination patient is sedated on fentanyl and has TPN infusing. He is on assist control 400/12/8/0.35. Per GI we will start trial of tube feedings initiation has been reconsulted for orders. 10/18: Patient was febrile overnight and infectious disease has recultured (blood/sputum/right nostril culture) and sent in urinalysis. Cefepime was extended due to high fever and was started on vancomycin. Tube feeding is at goal and we will discontinue his parenteral nutrition. Patient is unable to obtain his MRI due to increased hypoxia and nasal secretions. He will be started on CPAP trials today. This time I examination patient was sedated on fentanyl and had PPN running at 42. His renal function tests have worsened and now has hyperchloremia. Hypernatremia has resolved. 10/19: Patient's T-max was 100.2 and he was pancultured yesterday, remains on antibiotic therapy and still has copious drainage from his nostrils. Patient still has leukocytosis however his/creatinine improved slightly to 3.1 from 3.3. Patient's urinalysis from yesterday shows pyuria. Patient's tracheal aspirate from yesterday grew Staph aureus. Patient is on cefepime and vancomycin. 10/20: This morning at the time my examination patient was CPAP trial of 6 and his T-max was 100.9. Patient sedated on fentanyl at 2 just received IV push fentanyl for tachycardia. Today his creatinine is 2.8 from 3.1 yesterday. Infe ctious disease has stopped cefepime and vancomycin and started linezolid and MRSA PCR is pending. Today removed his NG tube and replaced it with OG tube. We will keep the patient normal saline at 75 mL's per hour for 3 L. Patient developed A. fib/a flutter overnight and cardiology has increased his Lopressor and IV amiodarone. We requested neurology evaluation today. 10/21: Cardiology we will increase Lopressor to 3 times daily and discontinue his amiodarone drip. Infectious disease would like a sinus CT when feasible however patient did have a moment of desatting earlier this week when we attempted MRI brain. And again yesterday when we attempted a "trial run" with positioning at bedside Patient is on linezolid for 10 days per ID. 10/22/20; patient was seen and evaluated this morning, patient had low-grade fever overnight. Patient is on Lopressor per cardiology recommendation. Cristo jacob did not follow commands, no improvement in mental status. Evaluated by neurology yesterday and neurology once MRI or CAT scan but cannot be done because patient desats when he lies flat. Patient is on linezolid per ID recommendation. Continue NG tube feeding. Continue with Keppra. Patient is on assist control with PEEP of 6. Management plan was discussed with his yesterday. 10/23/2020; patient is on Zyvox for positive MRSA from tracheal aspirate and nasal secretion culture. Patient's mentation did not improve and does not follow commands. He was reevaluated by neurology and recommend MRI once patient is able to tolerate. MRI could not be done, CT scan could not be done because the patient could not lie flat. Clinically patient looks like she has anoxic encephalopathy. Patient is on NG tube feeding and on mechanical ventilation. Patient is on Keppra. Management plan was discussed with his . 10/24: This morning the patient is on AC TV 400,R 16, Peep 6 and FiO2 of 30% and sedated on 1mcg of Fentayl. He is hypernatremic and his kidney function tests have slightly improved. RN will attempt to obtain MRI Brain today since the patient was able to tolerate a "trial run" of being flat. [facility] plans to resume CPAP trials once MRI obtained. 10/25: This morning the time of examination patient was on assist control tidal volume 400, rate 16, PEEP 6, FiO2 30% and he is currently on CPAP. His MRI brain finding is consistent with status epilepticus or anoxic brain injury. Patient is EEG pending. No acute overnight events reported. 10/26: Patient has been on a CPAP trial / which she has been tolerating. Surgery was consulted for trach/PEG. Patient's hypernatremia and hyperchloremia slightly better as well as his kidney functions. He has received cardiac clearance for his trach and PEG. No acute events reported overnight. 10/27: At the time my examination patient was on CPAP trial 15/6 and 30% FiO2. Patient's electrolyte abnormalities were improving and sources kidney function. His T-max overnight was 99.3 and he remains on linezolid. No acute events reported overnight. 10/28: Yesterday patient had a trach and PEG placed. Patient remains n.p.o. as he has not been cleared by surgery to resume p.o. intake. Today he has slight leukocytosis which is likely reactive, hyponatremia, metabolic alkalosis however his kidney function continues to improve. No acute events overnight. 10/29: Plan to start tube feeding today, patient remains on mechanical ventilation with trach tube. Remains comatose without any change in mental status. Called and updated. 10/30: Vitals stable, patient remains on trach tube with ventilator. Tolerating tube feeding, otherwise clinically unchanged. Continue to provide supportive care and wean off from vent as tolerated. 10/31: No acute events reported overnight. Patient is CPAP at the time my examination however he will be tried on trach collar and we will obtain an ABG within 2 hours. 11/01. Patient is on a trach collar at 35% FiO2, he was reported, patient received Lasix and will obtain an ABG at 2100. dr. Uribe updated his and his mother is at bedside visiting him. 11/02. Patient was rested on assist control due to "tube feedings" endotracheal tube however CXR looks mild atelectasis rather than pneumonia. [facility] has given the patient another dose of Lasix and will obtain a CXR in the a.m. Patient remains with low-grade fever and we will resume daily SBT as tolerated. We will obtain a.m. labs and resume tube feedings. 11/03: Overnight the patient was rested on assist control and this afternoon he received CPAP trials. Patient's CXR looks pulmonary edema and he received add itional 20 mg of Lasix today and tomorrow. Dr. Uribe updated the patient's family via phone today and they do not wish to change his code status. Patient's Robinul and scopolamine was decreased. 11/04: Patient was started on Mucomyst due to thick secretion, will continue gentle diuresis and again began T-piece trials. Pa this time my examination he was on CPAP trial 10 and was rested overnight, assist control. According to documentation patient rested on CPAP trial yesterday for approximately 4-1/2 hours. No acute events reported overnight. 11/05 patient improved with Mucomyst. Attempted weaning to begin T-piece trial. Physical examination consistent with anoxia 11/06. No new events over p.m. Secretions appear to be controlled. Updated family today. All questions and concerns answered to family satisfaction. 11/07: T-piece trials to resume. No acute events overnight. Continue current care. PT/OT consult. Transfer to [facility]. 11/09/2020. No new issues. Continue trach care, secretion control and airway management. Continue tube feedings which the patient is tolerating. G astrostomy tube care. 11/11: Patient has remained on T-piece for 24 hours and he will be transferred to the floor. He is restarted on Mucomyst today per [facility]. 11/12: The patient was transferred to the floor yesterday and remained stable on T-piece. Continue tracheostomy care, secretion control and airway management. Continue Mucomyst. -10/24 MRI Brain shows restricted diffusion and increased T2 signal cerebral cortex which can be seen in the setting of anoxic brain injury and/ or status epilepticus. -10/26 EEG shows significant generalized slowing compatible with to moderate severe diffuse neuropathy recently compatible with anoxic/ischemic encephalopathy 11/13: Patient remains on T-piece with oxygen at 8 L/min and saturations of 97%. Continue tracheostomy care secretion control and airway management. Gastrostomy tube care. Tube feedings with aspiration precaution. 11/14: Patient with an episode yesterday evening of tachypnea and desaturation. Also, patient noted to have distended abdomen/bladder which is likely causing respiratory distress. Tuttle was placed for urinary retention. ABG revealed pH 7.3, PCO2 68 and PO2 of 101. Pulmonology made no changes. Patient still on T- piece at 10 L/min with FiO2 35%. Continue tracheostomy care secretion control and airway management. Gastrostomy tube care. Tube feedings with aspiration precaution. 5. Has thick secretions from the tracheostomy. Remains on 6 L of oxygen. Tuttle was placed yesterday for distended bladder. Hospitalist Physical - Physical exam Narrative exam: VITAL SIGNS: Reviewed. GENERAL: Awake. Not responsive HEAD: No signs of head trauma. EYES: Pupils are equal. MOUTH: Oropharynx is normal. NECK: No adenopathy, no JVD. Trach in place CHEST: Rales bilaterally CARDIAC: normal S1 and S2, without murmurs, gallops, or rubs. ABDOMEN: Soft, non tender and non distended. No rebound or guarding, and no masses palpated. Bowel Sounds normal. MUSCULOSKELETAL: No edema NEUROLOGIC EXAM: Alert and oriented x3. No focal neurologic deficits SKIN: No obvious lesions - Constitutional Vitals: Temp Pulse Resp BP Pulse Ox 98.7 F 86 20 191/90 95 11/15/20 07:49 11/15/20 10:00 11/15/20 07:59 11/15/20 07:49 11/15/20 10:00 HEART Score - HEART Score EKG: Non-specific Age: 45-65 Troponin: Troponin T 0.125 ng/mL (0.00-0.029) H* D 10/12/20 04:00 Troponin: 1-3x normal limit - Critical Actions Critical Actions: 4-6 pts:12-16.6% risk of adverse cardiac event. Should be admitted Results - Labs CBC & Chem 7: 11/11/20 11:00 11/11/20 08:38 Labs: Laboratory Last Values WBC 5.5 K/mm3 (4.5-11.0) 11/11/20 11:00 RBC 2.79 M/mm3 (3.65-5.03) L 11/11/20 11:00 Hgb 8.4 gm/dl (11.8-15.2) L 11/11/20 11:00 Hct 25.4 % (35.5-45.6) L 11/11/20 11:00 MCV 91 fl (84-94) 11/11/20 11:00 MCH 30 pg (28-32) 11/11/20 11:00 MCHC 33 % (32-34) 11/11/20 11:00 RDW 15.1 % (13.2-15.2) 11/11/20 11:00 Plt Count 239 K/mm3 (140-440) 11/11/20 11:00 Lymph % (Auto) 19.1 % (13.4-35.0) 11/07/20 04:50 [place] % (Auto) 10.3 % (0.0-7.3) H 11/07/20 04:50 Eos % (Auto) 6.9 % (0.0-4.3) H 11/07/20 04:50 Baso % (Auto) 0.6 % (0.0-1.8) 11/07/20 04:50 Lymph # (Auto) 1.5 K/mm3 (1.2-5.4) 11/07/20 04:50 [place] # (Auto) 0.8 K/mm3 (0.0-0.8) 11/07/20 04:50 Eos # (Auto) 0.5 K/mm3 (0.0-0.4) H 11/07/20 04:50 Baso # (Auto) 0.0 K/mm3 (0.0-0.1) 11/07/20 04:50 Add Manual Diff Complete 10/10/20 18:18 Total Counted 100 10/10/20 18:18 Seg Neutrophils % 63.1 % (40.0-70.0) 11/07/20 04:50 Seg Neuts % (Manual) 60.0 % (40.0-70.0) 10/10/20 18:18 Band Neutrophils % 27.0 % 10/10/20 18:18 Lymphocytes % (Manual) 4.0 % (13.4-35.0) L 10/10/20 18:18 Monocytes % (Manual) 9.0 % (0.0-7.3) H 10/10/20 18:18 Eosinophils % (Manual) 4.0 % (0.0-4.3) 10/10/20 10:48 Metamyelocytes % 1.0 % 10/10/20 10:48 Nucleated RBC % Not Reportable 10/10/20 18:18 Seg Neutrophils # 4.8 K/mm3 (1.8-7.7) 11/07/20 04:50 Seg Neutrophils # Man 13.8 K/mm3 (1.8-7.7) H 10/10/20 18:18 Band Neutrophils # 6.2 K/mm3 10/10/20 18:18 Lymphocytes # (Manual) 0.9 K/mm3 (1.2-5.4) L 10/10/20 18:18 Abs React Lymphs (Man) 0.0 K/mm3 10/10/20 18:18 Monocytes # (Manual) 2.1 K/mm3 (0.0-0.8) H 10/10/20 18:18 Eosinophils # (Manual) 0.0 K/mm3 (0.0-0.4) 10/10/20 18:18 Basophils # (Manual) 0.0 K/mm3 (0.0-0.1) 10/10/20 18:18 Metamyelocytes # 0.0 K/mm3 10/10/20 18:18 Myelocytes # 0.0 K/mm3 10/10/20 18:18 Promyelocytes # 0.0 K/mm3 10/10/20 18:18 Blast Cells # 0.0 K/mm3 10/10/20 18:18 WBC Morphology Not Reportable 10/10/20 18:18 Hypersegmented Neuts Not Reportable 10/10/20 18:18 Hyposegmented Neuts Not Reportable 10/10/20 18:18 Hypogranular Neuts Not Reportable 10/10/20 18:18 Smudge Cells Not Reportable 10/10/20 18:18 Toxic Granulation Not Reportable 10/10/20 18:18 Toxic Vacuolation Not Reportable 10/10/20 18:18 Dohle Bodies Not Reportable 10/10/20 18:18 Pelger-Huet Anomaly Not Reportable 10/10/20 18:18 Dionicio Rods Not Reportable 10/10/20 18:18 Platelet Estimate Consistent w auto 10/10/20 18:18 Clumped Platelets Not Reportable 10/10/20 18:18 Plt Clumps, EDTA Not Reportable 10/10/20 18:18 Large Platelets Rare 10/10/20 18:18 Giant Platelets Rare 10/10/20 18:18 Platelet Satelliting Not Reportable 10/10/20 18:18 Plt Morphology Comment Not Reportable 10/10/20 18:18 RBC Morphology Not Reportable 10/10/20 18:18 Dimorphic RBCs Not Reportable 10/10/20 18:18 Polychromasia Not Reportable 10/10/20 18:18 Hypochromasia Not Reportable 10/10/20 18:18 Poikilocytosis Not Reportable 10/10/20 18:18 Anisocytosis Not Reportable 10/10/20 18:18 Microcytosis Not Reportable 10/10/20 18:18 Macrocytosis Not Reportable 10/10/20 18:18 Spherocytes Not Reportable 10/10/20 18:18 Pappenheimer Bodies Not Reportable 10/10/20 18:18 Sickle Cells Not Reportable 10/10/20 18:18 Target Cells Not Reportable 10/10/20 18:18 Tear Drop Cells Not Reportable 10/10/20 18:18 Ovalocytes Not Reportable 10/10/20 18:18 Helmet Cells Not Reportable 10/10/20 18:18 Medley-Eola Bodies Not Reportable 10/10/20 18:18 [place] Rings Not Reportable 10/10/20 18:18 Adelfo Cells Not Reportable 10/10/20 18:18 Bite Cells Not Reportable 10/10/20 18:18 Crenated Cell Not Reportable 10/10/20 18:18 Elliptocytes Not Reportable 10/10/20 18:18 Acanthocytes (Spur) Not Reportable 10/10/20 18:18 Rouleaux Not Reportable 10/10/20 18:18 Hemoglobin C Crystals Not Reportable 10/10/20 18:18 Schistocytes Not Reportable 10/10/20 18:18 Malaria parasites Not Reportable 10/10/20 18:18 Mauricio Bodies Not Reportable 10/10/20 18:18 Hem Pathologist Commnt No 10/10/20 18:18 PT 13.5 Sec. (12.2-14.9) 10/28/20 07:00 INR 1.05 (0.87-1.13) 10/28/20 07:00 APTT 26.9 Sec. (24.2-36.6) 10/10/20 18:18 D-Dimer 679.5 ng/mlDDU (0-234) H 10/10/20 10:48 Heparin Anti-Xa Level 0.22 U.I./ml (0.3-0.7) L 10/11/20 08:35 ABG pH 7.374 (7.320-7.450) 11/13/20 16:43 POC ABG pCO2 68.4 mmHg (32.0-48.0) H 11/13/20 16:43 ABG pCO2 55.5 mm Hg 10/16/20 05:10 POC ABG pO2 101.9 mmHg (83-108) 11/13/20 16:43 ABG pO2 104.5 mm Hg (80.0-90.0) H 10/16/20 05:10 POC ABG HCO3 39.0 11/13/20 16:43 ABG HCO3 35.1 mmol/L (20.0-26.0) H 10/16/20 05:10 ABG O2 Saturation 97.8 (0-100) 11/13/20 16:43 ABG O2 Content 10.8 (0.0-44) 10/16/20 05:10 POC ABG Base Excess 11.7 11/13/20 16:43 ABG Base Excess 9.5 mmol/L (-2.0-3.0) H 10/16/20 05:10 ABG Hemoglobin 10.0 (12.0-17.5) L 11/13/20 16:43 ABG Oxyhemoglobin 96.7 (94-98) 11/13/20 16:43 ABG Carboxyhemoglobin 1.9 % (0.0-5.0) 10/16/20 05:10 ABG Methemoglobin 0.3 (0.0-1.5) 11/13/20 16:43 ABG Sodium 140.6 mmol/L (136.0-145.0) 11/13/20 16:43 ABG Potassium 4.2 mmol/L (3.40-4.50) 11/13/20 16:43 ABG Chloride 98.0 mmol/L (98-107) 11/13/20 16:43 ABG Glucose 133 mg/dL (65-95) H 11/13/20 16:43 VBG pH 6.870 (7.320-7.420) L* 10/10/20 10:48 Oxyhemoglobin 95.3 % (95.0-99.0) 10/16/20 05:10 Carboxyhemoglobin 0.8 (0.5-1.5) 11/13/20 16:43 FiO2 35 % 10/16/20 05:10 FiO2 % 35.0 11/13/20 16:43 Sodium 136 mmol/L (137-145) L 11/11/20 08:38 Potassium 4.2 mmol/L (3.6-5.0) 11/11/20 08:38 Chloride 97.6 mmol/L (98-107) L 11/11/20 08:38 Carbon Dioxide 35 mmol/L (22-30) H 11/11/20 08:38 Anion Gap 8 mmol/L 11/11/20 08:38 BUN 26 mg/dL (9-20) H 11/11/20 08:38 Creatinine 0.9 mg/dL (0.8-1.3) 11/11/20 08:38 Estimated GFR > 60 ml/min 11/11/20 08:38 BUN/Creatinine Ratio 29 % 11/11/20 08:38 Glucose 133 mg/dL (75-100) H 11/11/20 08:38 POC Glucose 126 mg/dL (70-105) H 11/15/20 11:14 Hemoglobin A1c 6.0 % (4-6) 10/11/20 02:00 Lactic Acid 1.10 mmol/L (0.7-2.0) 10/13/20 04:52 Calcium 8.0 mg/dL (8.4-10.2) L 11/11/20 08:38 Phosphorus 5.20 mg/dL (2.5-4.5) H D 10/17/20 03:32 Magnesium 2.30 mg/dL (1.7-2.3) 10/17/20 03:32 Ferritin 81.4 ng/mL (30.0-300.0) 10/10/20 10:48 Total Bilirubin 1.70 mg/dL (0.1-1.2) H 10/18/20 03:27 AST 37 units/L (5-40) 10/18/20 03:27 ALT 32 units/L (7-56) 10/18/20 03:27 Alkaline Phosphatase 97 units/L (35-129) 10/18/20 03:27 Ammonia 214.0 umol/L (25-60) H 10/10/20 10:46 Lactate Dehydrogenase 386 units/L (91-180) H 10/10/20 10:48 Total Creatine Kinase 1192 units/L (55-170) H 10/10/20 18:18 CK-MB (CK-2) 21.7 ng/mL (0.0-4.0) H 10/10/20 18:18 CK-MB (CK-2) Rel Index 1.8 (0-4) 10/10/20 18:18 Troponin T 0.125 ng/mL (0.00-0.029) H* D 10/12/20 04:00 C-Reactive Protein 0.90 mg/dL (0.00-1.30) 10/10/20 10:48 NT-Pro-B Natriuret Pep 1187 pg/mL (0-900) H 10/10/20 10:46 Total Protein 6.3 g/dL (6.3-8.2) 10/18/20 03:27 Albumin 3.1 g/dL (3.9-5) L 10/18/20 03:27 Albumin/Globulin Ratio 1.0 % 10/18/20 03:27 Triglycerides 278 mg/dL (2-149) H 10/13/20 04:52 Cholesterol 138 mg/dL (50-199) 10/10/20 18:18 LDL Cholesterol Direct 76 mg/dL (50-130) 10/10/20 18:18 HDL Cholesterol 49 mg/dL (40-59) 10/10/20 18:18 Cholesterol/HDL Ratio 2.81 % 10/10/20 18:18 Procalcitonin 4.98 ng/mL (<0.15) 10/15/20 04:12 TSH 6.260 mlU/mL (0.270-4.200) H 10/10/20 10:46 Arterial Blood Glucose 133 mg/dL (65-95) H 11/13/20 16:43 Arterial Blood Ionized Calcium 4.7 mg/dL (4.6-5.3) 11/13/20 16:43 Urine Color Angelica (Yellow) 10/18/20 Unknown Urine Turbidity Cloudy (Clear) 10/18/20 Unknown Urine pH 5.0 (5.0-7.0) 10/18/20 Unknown Ur Specific [place] 1.017 (1.003-1.030) 10/18/20 Unknown Urine Protein 100 mg/dl mg/dL (Negative) 10/18/20 Unknown Urine Glucose (UA) Neg mg/dL (Negative) 10/18/20 Unknown Urine Ketones Neg mg/dL (Negative) 10/18/20 Unknown Urine Blood Lg (Negative) 10/18/20 Unknown Urine Nitrite Neg (Negative) 10/18/20 Unknown Urine Bilirubin Neg (Negative) 10/18/20 Unknown Urine Urobilinogen 4.0 mg/dL (<2.0) 10/18/20 Unknown Ur Leukocyte Esterase Neg (Negative) 10/18/20 Unknown Urine WBC (Auto) 115.0 /HPF (0.0-6.0) H 10/18/20 Unknown Urine RBC (Auto) 98.0 /HPF (0.0-6.0) 10/18/20 Unknown U Epithel Cells (Auto) 2.0 /HPF (0-13.0) 10/18/20 Unknown Urine WBC Clumps 3+ /HPF 10/18/20 Unknown Urine Mucus Few /HPF 10/11/20 13:30 Urine Eosinophils None seen (None Seen) 10/11/20 13:30 Urine Creatinine 93.7 mg/dL (0.1-20.0) H 10/19/20 13:14 Urine Sodium 25 mmol/L 10/19/20 13:14 Urine Urea Nitrogen 845 10/19/20 13:14 Nasal Screen MRSA (PCR) Positive (Negative) 10/20/20 13:30 Random Vancomycin 5.8 ug/mL (0-40.0) 10/21/20 06:30 Urine Opiates Screen Negative 10/10/20 10:50 Urine Methadone Screen Negative 10/10/20 10:50 Ur Barbiturates Screen Negative 10/10/20 10:50 Ur Phencyclidine Scrn Negative 10/10/20 10:50 Ur Amphetamines Screen Negative 10/10/20 10:50 U Benzodiazepines Scrn Negative 10/10/20 10:50 Urine Cocaine Screen Negative 10/10/20 10:50 U Marijuana (THC) Screen Positive 10/10/20 10:50 Drugs of Abuse Note Disclamer 10/10/20 10:50 Plasma/Serum Alcohol < 0.01 % (0-0.07) 10/10/20 10:48 Coronavirus (PCR) Negative (Negative) 10/11/20 Unknown Blood Type AB POSITIVE 10/10/20 10:48 Antibody Screen Negative 10/10/20 10:48 Tuttle/IV: Voiding Method Indwelling Catheter Active Medications - Current Medications Current Medications: Generic Name Dose Route Start Last Admin Trade Name Freq PRN Reason Stop Dose Admin Acetaminophen 650 mg 10/10/20 21:51 11/15/20 05:39 Acetaminophen 325 Mg Tab PO 650 mg Q4H PRN Administration Pain MILD(1-3)/Fever >100.5/SALVADOR Albuterol 2.5 mg 10/11/20 13:12 11/14/20 09:54 Albuterol 2.5 Mg/3 Ml Nebu IH 2.5 mg Q6HRT PRN Administration Shortness Of Breath Amlodipine Besylate 10 mg 10/25/20 13:00 11/15/20 09:26 Amlodipine 10 Mg Tab PO 10 mg QDAY PEPITO Administration Lipase/Protease/Amylase 1 each 10/10/20 22:18 Lipase 10,500/Protease 25,000/Amylase 43,750 (Units) Dr Santana FEEDTUBE PRN PRN For Clogged Feeding Tube Clonidine HCl 0.3 mg 10/14/20 15:00 11/11/20 14:03 Clonidine Tts 0.3 Mg/24 Hr Patch TD 0.3 mg Fr PEPITO Administration Docusate Sodium 100 mg 10/16/20 22:00 11/15/20 09:25 Docusate Sodium 100 Mg/10 Ml Oral Liqd PO 100 mg BID PEPITO Administration Fentanyl 1 applic 11/09/20 18:00 11/13/20 17:33 Fentanyl 25 Mcg/Hr Patch 72hr TD 1 applic Q72H PEPITO Administration Glycopyrrolate 1 mg 11/04/20 14:00 11/15/20 05:40 Glycopyrrolate 1 Mg Tab PO 1 mg Q8HR PEPITO Administration Heparin Sodium (Porcine) 5,000 unit 10/11/20 22:00 11/15/20 09:25 Heparin 5,000 Unit/1 Ml Vial SUB-Q 5,000 unit Q12HR PEPITO Administration Hydralazine HCl 10 mg 11/02/20 08:46 11/14/20 12:01 Hydralazine 20 Mg/1 Ml Inj IV 10 mg Q6H PRN Administration Hypertension Hydralazine HCl 100 mg 11/10/20 06:00 11/15/20 05:39 Hydralazine 100 Mg Tab PO 100 mg Q8HR PEPITO Administration Hydromorphone HCl 0.5 mg 11/01/20 20:55 11/13/20 16:24 Hydromorphone 1 Mg/1 Ml Inj IV 0.5 mg Q3H PRN Administration Pain , Severe (7-10) Hydrophilic Ointment 1 applic 10/10/20 10:34 Lip Therapy Vaseline TP Q2HR PRN Dry Lips Lansoprazole 30 mg 10/24/20 10:00 11/15/20 09:25 Lansoprazole 30 Mg Solutab FEEDTUBE 30 mg BID PEPITO Administration Levetiracetam 500 mg 10/31/20 10:00 11/15/20 09:27 Levetiracetam 500 Mg/5 Ml Oral Liqd PO 500 mg BID PEPITO Administration Lorazepam 1 mg 11/04/20 19:27 11/14/20 22:21 Lorazepam 2 Mg/Ml Vial IV 1 mg Q4H PRN Administration Agitation Metoprolol Tartrate 100 mg 10/21/20 14:00 11/15/20 09:26 Metoprolol Tartrate 50 Mg Tab PO 100 mg TID PEPITO Administration Multi-Ingred Cream/Lotion/Oil/Oint 1 applic 10/10/20 10:34 Mineral Oil/Petrolatum, White Ophth Oint 3.5 Gm OU Q4HR PRN Dry Eye(s) Ondansetron HCl 4 mg 10/10/20 21:51 11/01/20 20:48 Ondansetron 4 Mg/2 Ml Inj IV 4 mg Q3H PRN Administration Nausea And Vomiting Polyethylene Glycol 17 gm 10/17/20 10:00 11/15/20 09:27 Polyethylene Glycol 3350 17 Gm Powder PO 17 gm QDAY PEPITO Administration Quetiapine Fumarate 100 mg 11/02/20 10:00 11/15/20 09:26 Quetiapine 100 Mg Tab PO 100 mg DAILY PEPITO Administration Quetiapine Fumarate 200 mg 11/07/20 22:00 11/14/20 22:20 Quetiapine 200 Mg Tab PO 200 mg QHS PEPITO Administration Quetiapine Fumarate 25 mg 11/07/20 14:00 11/15/20 09:26 Quetiapine 25 Mg Tab PO 25 mg DAILY PEPITO Administration Scopolamine 1 each 10/17/20 10:00 11/13/20 09:04 Scopolamine Transdermal Patch 72 Hr TD 1 each Q3D PEPITO Administration Simple Syrup 15 ml 10/10/20 22:18 Simple Syrup 15 Ml FEEDTUBE PRN PRN Hypoglycemia Simple Syrup 30 ml 10/10/20 22:18 Simple Syrup 15 Ml FEEDTUBE PRN PRN Hypoglycemia Sodium Bicarbonate 325 mg 10/10/20 22:18 Sodium Bicarbonate 325 Mg Tab FEEDTUBE PRN PRN For Clogged Feeding Tube Sodium Chloride 10 ml 10/10/20 22:00 11/15/20 09:27 Sodium Chloride 0.9% 10 Ml Flush Syringe IV 10 ml BID PEPITO Administration Nutrition/Malnutrition Assess - Dietary Evaluation Nutrition/Malnutrition Findings: Nutrition Notes Start: 10/11/20 08:38 Freq: Status: Active Protocol: Document 11/14/20 10:59 MK (Rec: 11/14/20 11:06 [email or web address]) Nutrition Notes Initial or Follow up Reassessment Current Diagnosis Acute Kidney Injury,Sepsis, Hypertension,Heart Failure, Respiratory Failure Other Pertinent Diagnosis GIB, pneu, MRSA MS, pulmonary edema Current Diet Promote at 80 ml/hr Labs/Tests Reviewed Pertinent Medications Miralax Height 6 ft Weight 130.2 kg Viola Body Weight (kg) 80.90 BMI 38.9 Weight Status Morbidly Obese Subjective/Other Information FU for TF tolerance. TF not running. Per RN, pt with distended abd and bladder retention causing respiratory distress. Per MD, pt getting x -ray this AM then will continue TF. Percent of energy/protein needs met: 0%/0% Burn Absent Trauma Absent Difficulty In Swallowing Skin Integrity/Comment DTI to heel Current % PO Negligible Minimum of two criteria No Fluid Accumulation Mild (non-severe) #3 Nutrition Diagnosis Increased nutrient needs ( specify in comment below) Diagnosis Progress(for reassessment Continues documentation) #1 Nutrition Diagnosis Inadequate oral intake Diagnosis Progress(for reassessment Continues documentation) Is patient on ventilator? Yes Is Patient Ambulatory and/or Out of Bed No REE-([facility]-confined to bed) 2625.528 Kcal/Kg value to use for calculation 15 Approximate Energy Requirements Using 1953 kcal/Kg Calculation Used for Recommendations Kcal/kg Additional Notes protein needs: >162g (>2 kgIBW of dry weight) fluid needs: 1 ml/kcal or per MD Nutrition Intervention Change Diet Order: Continue when medically able Nutrition Support: Promote at 80 ml/hr flush of 50 ml q4h. Kcal 1,920 Protein (gm) 120 Fluid (mL) 1,611 Goal #1 Tolerate TF Goal #2 Meet at least 70% of protein and 100% of kcal needs via TF Anticipated Discharge Needs: TF Follow-Up By: 11/16/20 Additional Comments FU for TF restart and tolerance
[2020-11-15] MEDS: LORazepam 2 MG/ML VIAL IV PRN (16:00)
[2020-11-15] MEDS: HYDROmorphone 1 MG/1 ML INJ IV PRN (16:17)
[2020-11-15] MEDS: fentaNYL 25 MCG/HR PATCH 72HR TD SCH (19:54)
[2020-11-15] MEDS: QUEtiapine 200 MG TAB PO SCH (22:01)
[2020-11-16] MEDS: LORazepam 2 MG/ML VIAL IV PRN ×2 (00:35→16:20)
[2020-11-16] MEDS: ACETAMINOPHEN 325 MG TAB PO PRN (00:35)
[2020-11-16] MEDS: GLYCOPYRROLATE 1 MG TAB PO SCH ×3 (06:01→22:19)
[2020-11-16] MEDS: hydrALAZINE 100 MG TAB PO SCH ×3 (06:01→22:18)
--- NOTE | 2020-11-16 08:46 | Progress Note ---
Assessment and Plan Assessment and plan: This is a 55-year-old male with hypertension, asthma, obesity who was admitted on 10/10 after cardiac arrest x2 (supposedly after COVID-19 vaccine injection), sepsis, right-sided pneumonia, NSTEMI type II, acute heart failure, acute hypoxic respiratory failure, acute kidney injury and anoxic brain injury. Sepsis s/p multiple Cardiac Arrests s/p right-sided pneumonia MRSA in tracheal aspirate NSTEMI type II Acute heart failure Afib/Aflutter Acute hypoxic respiratory failure Acute kidney injury (improved) Transaminitis HTN Obesity Seizure disorder -Infectious disease, CCM, GI, nephrology, cardiology, surgery consulted, appreciate recommendations -s/p Antibiotic therapy -10/18 recultured (blood/sputum/nasal discharge and urinalysis), tracheal aspirate with MRSA -S/p Linezolid -Continue antihypertensive regimen -s/p IV amiodarone for A. fib/a flutter now on p.o. beta-shital -Trend CBC, BMP, LFT -trach/peg 10/27 -Mucomyst -Keppra -Avoid nephrotoxic medications, strict intake and output, renal ultrasound shows no obstruction -10/10 echocardiogram shows left internal systolic function normal, moderate concentric left ventricle hypertrophy, mild to side diastolic dysfunction, LVEF 55 to 60% with no pericardial effusion -Bilateral Doppler ultrasound negative for DVT/SVT which shows bilateral popliteal cysts -MRI Brain shows restricted diffusion and increased T2 signal cerebral cortex which can be seen in the setting of anoxic brain injury and/ or status epilepticus. -Repeat EEG shows significant generalized slowing compatible with to moderate severe diffuse neuropathy recently compatible with anoxic/ischemic encephalopathy -Will get sputum cultures as he has thick secretions and Temp >100F GI/DVT prophylaxis: SCDs to bilateral lower extremities while in bed, PPI, Heparin subq Dispo: group home facility versus LTAC History Interval history: This is a 55-year-old male with hypertension, asthma, obesity in the emergency by presented to the emergency department on 10/10 after receiving a Covid vaccine being found unresponsive in his car in the emergency room bay with no pulse and ACLS protocol was initiated from his car to emergency room #21 where it was continued. Patient was intubated after ROSC was achieved and a central line was placed and the patient was initiated on pressors. In the emergency room patient seems to have seizure-like activity and then collapsed and was unresponsive with no palpable pulse and ACLS was again initiated patient with achievement of ROSC. Patient again coded with ACLS protocol in the CT room. Upon arrival to the ICU patient again coded and ROSC was achieved and he was placed on epinephrine, Lasix, heparin and sodium bicarbonate drip and sedated with propofol. An NG tube was placed, A-line was placed. Patient was admitted to the hospitalist service with consult to CCM, nephrology, infectious disease and cardiology. 10/11: Patient COVID-19 PCR is pending and he remains on mechanical ventilation, examination on assist control 400/30/12/0.95. Patient is scheduled for an echocardiogram and we will obtain bilateral lower extremity Doppler ultrasound given elevated D-dimer. Patient was supposed to have a CTA chest when he coded yesterday. We will begin trickle feeding. This morning patient was on a heparin drip and was noted to have bloody drainage from his NG tube. Heparin drip was discontinued. 10/12: Patient remains on propofol and Lasix drip at the time my examination and he is on assist control 400/25/12/0.60. Patient is hypokalemic this morning which was repleted. Nephrology discontinued Lasix drip and Diamox. Patient is hypertensive and has been started on hydralazine and beta-shital IV. He has been titrated off his vasopressors since yesterday. Vancomycin discontinued. Patient is currently on cefepime and azithromycin. 10/13: Sedation vacation attempted today and patient was not responsive to verbal or painful stimuli, does not track or focus or follow commands. This morning the patient has some respiratory alkalosis on ABG, hypernatremia and metabolic alkalosis on BMP. His kidney functions has improved slightly. Patient still has leukocytosis and infectious disease was like to continue antibiotic therapy. GI evaluated the patient yesterday and started the patient on PPI does not plan to scope at this time. At the time my examination patient assist-control 400/20/12/0.40 and sedated on propofol at 20. 4/2: GI has recommended a CT abdomen since there is increased output from OG tube and an MRI brain without contrast has been ordered per neurology recommendations. EEG is pending and the patient has been started on Keppra per neurology.. Nutrition has been consulted for initiation of parenteral nutrition. Patient remains sedated with propofol and his hypernatremia, leukocytosis, acute kidney injury and metabolic alkalosis is improving. Patient has hypokalemia today which was repleted. At the time of my examination patient was on assist control 400/14/10/0.40 and CCM has dropped his rate to 12 and PEEP to 8. We have labs ordered for a.m. He was given a clonidine patch given persistent hypertension and he remains on D5 water per nephrology. 10/15: This morning patient was started to have a low-grade fever and he will continue antibiotic therapy per infectious disease. He will remove Tuttle catheter today and place a condom cath. Patient's renal function is worsening with a BUN/creatinine of 57/2.4 today and he has hyperphosphatemia at 5.2. This morning the time my examination patient is sedated on fentanyl and has TPN infusing. He is on assist control 400/12/8/0.35. Per GI we will start trial of tube feedings initiation has been reconsulted for orders. 10/18: Patient was febrile overnight and infectious disease has recultured (blood/sputum/right nostril culture) and sent in urinalysis. Cefepime was extended due to high fever and was started on vancomycin. Tube feeding is at goal and we will discontinue his parenteral nutrition. Patient is unable to obtain his MRI due to increased hypoxia and nasal secretions. He will be started on CPAP trials today. This time I examination patient was sedated on fentanyl and had PPN running at 42. His renal function tests have worsened and now has hyperchloremia. Hypernatremia has resolved. 10/19: Patient's T-max was 100.2 and he was pancultured yesterday, remains on antibiotic therapy and still has copious drainage from his nostrils. Patient still has leukocytosis however his/creatinine improved slightly to 3.1 from 3.3. Patient's urinalysis from yesterday shows pyuria. Patient's tracheal aspirate from yesterday grew Staph aureus. Patient is on cefepime and vancomycin. 10/20: This morning at the time my examination patient was CPAP trial of 04/19 and his T-max was 100.9. Patient sedated on fentanyl at 2 just received IV push fentanyl for tachycardia. Today his creatinine is 2.8 from 3.1 yesterday. Infectious disease has stopped cefepime and vancomycin and started linezolid and MRSA PCR is pending. Today removed his NG tube and replaced it with OG tube. We will keep the patient normal saline at 75 mL's per hour for 3 L. Patient developed A. fib/a flutter overnight and cardiology has increased his Lopressor and IV amiodarone. We requested neurology evaluation today. 10/21: Cardiology we will increase Lopressor to 3 times daily and discontinue his amiodarone drip. Infectious disease would like a sinus CT when feasible however patient did have a moment of desatting earlier this week when we attempted MRI brain. And again yesterday when we attempted a "trial run" with positioning at bedside Patient is on linezolid for 10 days per ID. 10/22/20; patient was seen and evaluated this morning, patient had low-grade fever overnight. Patient is on Lopressor per cardiology recommendation. Patient did not follow commands, no improvement in mental status. Evaluated by neurology yesterday and neurology once MRI or CAT scan but cannot be done because patient desats when he lies flat. Patient is on linezolid per ID recomm endation. Continue NG tube feeding. Continue with Keppra. Patient is on assist control with PEEP of 6. Management plan was discussed with his yesterday. 10/23/2020; patient is on Zyvox for positive MRSA from tracheal aspirate and nasal secretion culture. Patient's mentation did not improve and does not follow commands. He was reevaluated by neurology and recommend MRI once patient is able to tolerate. MRI could not be done, CT scan could not be done because the patient could not lie flat. Clinically patient looks like she has anoxic encephalopathy. Patient is on NG tube feeding and on mechanical ventilation. Patient is on Keppra. Management plan was discussed with his . 10/24: This morning the patient is on AC TV 400,R 16, Peep 6 and FiO2 of 30% and sedated on 1mcg of Fentayl. He is hypernatremic and his kidney function tests have slightly improved. RN will attempt to obtain MRI Brain today since the patient was able to tolerate a "trial run" of being flat. [facility] plans to resume CPAP trials once MRI obtained. 10/25: This morning the time of examination patient was on assist control tidal volume 400, rate 16, PEEP 6, FiO2 30% and he is currently on CPAP. His MRI brain finding is consistent with status epilepticus or anoxic brain injury. Patient is EEG pending. No acute overnight events reported. 10/26: Patient has been on a CPAP trial 26/12 which she has been tolerating. Surgery was consulted for trach/PEG. Patient's hypernatremia and hyperchloremia slightly better as well as his kidney functions. He has received cardiac clearance for his trach and PEG. No acute events reported overnight. 10/27: At the time my examination patient was on CPAP trial 27/12 and 30% FiO2. Patient's electrolyte abnormalities were improving and sources kidney function. His T-max overnight was 99.3 and he remains on linezolid. No acute events reported overnight. 10/28: Yesterday patient had a trach and PEG placed. Patient remains n.p.o. as he has not been cleared by surgery to resume p.o. intake. Today he has slight leukocytosis which is likely reactive, hyponatremia, metabolic alkalosis however his kidney function continues to improve. No acute events overnight. 10/29: Plan to start tube feeding today, patient remains on mechanical ventilation with trach tube. Remains comatose without any change in mental status. Called and updated. 10/30: Vitals stable, patient remains on trach tube with ventilator. Tolerating tube feeding, otherwise clinically unchanged. Continue to provide supportive care and wean off from vent as tolerated. 10/31: No acute events reported overnight. Patient is CPAP at the time my examination however he will be tried on trach collar and we will obtain an ABG within 2 hours. 11/01. Patient is on a trach collar at 35% FiO2, he was reported, patient received Lasix and will obtain an ABG at 2100. dr. Uribe updated his and his mother is at bedside visiting him. 11/02. Patient was rested on assist control due to "tube feedings" endotracheal tube however CXR looks mild atelectasis rather than pneumonia. [facility] has given the patient another dose of Lasix and will obtain a CXR in the a.m. Patient remains with low-grade fever and we will resume daily SBT as tolerated. We will obtain a.m. labs and resume tube feedings. 11/03: Overnight the patient was rested on assist control and this afternoon he received CPAP trials. Patient's CXR looks pulmonary edema and he received additional 20 mg of Lasix today and tomorrow. Dr. Uribe updated the patient's family via phone today and they do not wish to change his code status. Patient's Robinul and scopolamine was decreased. 11/04: Patient was started on Mucomyst due to thick secretion, will continue gentle diuresis and again began T-piece trials. Pa this time my examination he was on CPAP trial 10 and was rested overnight, assist control. According to documentation patient rested on CPAP trial yesterday for approximately 4-1/2 hours. No acute events reported overnight. 11/05 patient improved with Mucomyst. Attempted weaning to begin T-piece trial. Physical examination consistent with anoxia 11/06. No new events over p.m. Secretions appear to be controlled. Updated family today. All questions and concerns answered to family satisfaction. 11/07: T-piece trials to resume. No acute events overnight. Continue current care. PT/OT consult. Transfer to [facility]. 11/09/2020. No new issues. Continue trach care, secretion control and airway management. Continue tube feedings which the patient is tolerating. Gastrostomy tube care. 11/11: Patient has remained on T-piece for 24 hours and he will be transferred to the floor. He is restarted on Mucomyst today per [facility]. 11/12: The patient was transferred to the floor yesterday and remained stable on T-piece. Continue tracheostomy care, secretion control and airway management. Continue Mucomyst. -10/24 MRI Brain shows restricted diffusion and increased T2 signal cerebral cortex which can be seen in the setting of anoxic brain injury and/ or status epilepticus. -10/26 EEG shows significant generalized slowing compatible with to moderate severe diffuse neuropathy recently compatible with anoxic/ischemic encephalopathy 11/13: Patient remains on T-piece with oxygen at 8 L/min and saturations of 97%. Continue tracheostomy care secretion control and airway management. Gastrostomy tube care. Tube feedings with aspiration precaution. 11/14: Patient with an episode yesterday evening of tachypnea and desaturation. Also, patient noted to have distended abdomen/bladder which is likely causing respiratory distress. Tuttle was placed for urinary retention. ABG revealed pH 7.3, PCO2 68 and PO2 of 101. Pulmonology made no changes. Patient still on T- piece at 10 L/min with FiO2 35%. Continue tracheostomy care secretion control and airway management. Gastrostomy tube care. Tube feedings with aspiration precaution. 11/15. Has thick secretions from the tracheostomy. Remains on 6 L of oxygen. Tuttle was placed yesterday for distended bladder. 11/16. Not responsive. Temp spikes noted - 100.2F. Will get sputum culture. Continue oxygen supplementation. Needs placement. Discussed with patients spouse today. Hospitalist Physical - Physical exam Narrative exam: VITAL SIGNS: Reviewed. GENERAL: Awake. Not responsive HEAD: No signs of head trauma. EYES: Pupils are equal. MOUTH: Oropharynx is normal. NECK: No adenopathy, no JVD. Trach in place CHEST: Rales bilaterally CARDIAC: normal S1 and S2, without murmurs, gallops, or rubs. ABDOMEN: Soft, non tender and non distended. No rebound or guarding, and no masses palpated. Bowel Sounds normal. MUSCULOSKELETAL: No edema NEUROLOGIC EXAM: Not responsive SKIN: No obvious lesions - Constitutional Vitals: Temp Pulse Resp BP Pulse Ox 100.1 F H 82 16 155/84 99 11/16/20 00:00 11/15/20 22:01 11/16/20 00:00 11/16/20 00:00 11/15/20 22:25 HEART Score - HEART Score EKG: Non-specific Age: 45-65 Troponin: Troponin T 0.125 ng/mL (0.00-0.029) H* D 10/12/20 04:00 Troponin: 1-3x normal limit - Critical Actions Critical Actions: 4-6 pts:12-16.6% risk of adverse cardiac event. Should be admitted Results - Labs CBC & Chem 7: 11/11/20 11:00 11/11/20 08:38 Labs: Laboratory Last Values WBC 5.5 K/mm3 (4.5-11.0) 11/11/20 11:00 RBC 2.79 M/mm3 (3.65-5.03) L 11/11/20 11:00 Hgb 8.4 gm/dl (11.8-15.2) L 11/11/20 11:00 Hct 25.4 % (35.5-45.6) L 11/11/20 11:00 MCV 91 fl (84-94) 11/11/20 11:00 MCH 30 pg (28-32) 11/11/20 11:00 MCHC 33 % (32-34) 11/11/20 11:00 RDW 15.1 % (13.2-15.2) 11/11/20 11:00 Plt Count 239 K/mm3 (140-440) 11/11/20 11:00 Lymph % (Auto) 19.1 % (13.4-35.0) 11/07/20 04:50 Dougherty % (Auto) 10.3 % (0.0-7.3) H 11/07/20 04:50 Eos % (Auto) 6.9 % (0.0-4.3) H 11/07/20 04:50 Baso % (Auto) 0.6 % (0.0-1.8) 11/07/20 04:50 Lymph # (Auto) 1.5 K/mm3 (1.2-5.4) 11/07/20 04:50 Dougherty # (Auto) 0.8 K/mm3 (0.0-0.8) 11/07/20 04:50 Eos # (Auto) 0.5 K/mm3 (0.0-0.4) H 11/07/20 04:50 Baso # (Auto) 0.0 K/mm3 (0.0-0.1) 11/07/20 04:50 Add Manual Diff Complete 10/10/20 18:18 Total Counted 100 10/10/20 18:18 Seg Neutrophils % 63.1 % (40.0-70.0) 11/07/20 04:50 Seg Neuts % (Manual) 60.0 % (40.0-70.0) 10/10/20 18:18 Band Neutrophils % 27.0 % 10/10/20 18:18 Lymphocytes % (Manual) 4.0 % (13.4-35.0) L 10/10/20 18:18 Monocytes % (Manual) 9.0 % (0.0-7.3) H 10/10/20 18:18 Eosinophils % (Manual) 4.0 % (0.0-4.3) 10/10/20 10:48 Metamyelocytes % 1.0 % 10/10/20 10:48 Nucleated RBC % Not Reportable 10/10/20 18:18 Seg Neutrophils # 4.8 K/mm3 (1.8-7.7) 11/07/20 04:50 Seg Neutrophils # Man 13.8 K/mm3 (1.8-7.7) H 10/10/20 18:18 Band Neutrophils # 6.2 K/mm3 10/10/20 18:18 Lymphocytes # (Manual) 0.9 K/mm3 (1.2-5.4) L 10/10/20 18:18 Abs React Lymphs (Man) 0.0 K/mm3 10/10/20 18:18 Monocytes # (Manual) 2.1 K/mm3 (0.0-0.8) H 10/10/20 18:18 Eosinophils # (Manual) 0.0 K/mm3 (0.0-0.4) 10/10/20 18:18 Basophils # (Manual) 0.0 K/mm3 (0.0-0.1) 10/10/20 18:18 Metamyelocytes # 0.0 K/mm3 10/10/20 18:18 Myelocytes # 0.0 K/mm3 10/10/20 18:18 Promyelocytes # 0.0 K/mm3 10/10/20 18:18 Blast Cells # 0.0 K/mm3 10/10/20 18:18 WBC Morphology Not Reportable 10/10/20 18:18 Hypersegmented Neuts Not Reportable 10/10/20 18:18 Hyposegmented Neuts Not Reportable 10/10/20 18:18 Hypogranular Neuts Not Reportable 10/10/20 18:18 Smudge Cells Not Reportable 10/10/20 18:18 Toxic Granulation Not Reportable 10/10/20 18:18 Toxic Vacuolation Not Reportable 10/10/20 18:18 Dohle Bodies Not Reportable 10/10/20 18:18 Pelger-Huet Anomaly Not Reportable 10/10/20 18:18 Dionicio Rods Not Reportable 10/10/20 18:18 Platelet Estimate Consistent w auto 10/10/20 18:18 Clumped Platelets Not Reportable 10/10/20 18:18 Plt Clumps, EDTA Not Reportable 10/10/20 18:18 Large Platelets Rare 10/10/20 18:18 Giant Platelets Rare 10/10/20 18:18 Platelet Satelliting Not Reportable 10/10/20 18:18 Plt Morphology Comment Not Reportable 10/10/20 18:18 RBC Morphology Not Reportable 10/10/20 18:18 Dimorphic RBCs Not Reportable 10/10/20 18:18 Polychromasia Not Reportable 10/10/20 18:18 Hypochromasia Not Reportable 10/10/20 18:18 Poikilocytosis Not Reportable 10/10/20 18:18 Anisocytosis Not Reportable 10/10/20 18:18 Microcytosis Not Reportable 10/10/20 18:18 Macrocytosis Not Reportable 10/10/20 18:18 Spherocytes Not Reportable 10/10/20 18:18 Pappenheimer Bodies Not Reportable 10/10/20 18:18 Sickle Cells Not Reportable 10/10/20 18:18 Target Cells Not Reportable 10/10/20 18:18 Tear Drop Cells Not Reportable 10/10/20 18:18 Ovalocytes Not Reportable 10/10/20 18:18 Helmet Cells Not Reportable 10/10/20 18:18 [place] Bodies Not Reportable 10/10/20 18:18 Bull[place] Rings Not Reportable 10/10/20 18:18 Adelfo Cells Not Reportable 10/10/20 18:18 Bite Cells Not Reportable 10/10/20 18:18 Crenated Cell Not Reportable 10/10/20 18:18 Elliptocytes Not Reportable 10/10/20 18:18 Acanthocytes (Spur) Not Reportable 10/10/20 18:18 Rouleaux Not Reportable 10/10/20 18:18 Hemoglobin C Crystals Not Reportable 10/10/20 18:18 Schistocytes Not Reportable 10/10/20 18:18 Malaria parasites Not Reportable 10/10/20 18:18 Mauricio Bodies Not Reportable 10/10/20 18:18 Hem Pathologist Commnt No 10/10/20 18:18 PT 13.5 Sec. (12.2-14.9) 10/28/20 07:00 INR 1.05 (0.87-1.13) 10/28/20 07:00 APTT 26.9 Sec. (24.2-36.6) 10/10/20 18:18 D-Dimer 679.5 ng/mlDDU (0-234) H 10/10/20 10:48 Heparin Anti-Xa Level 0.22 U.I./ml (0.3-0.7) L 10/11/20 08:35 ABG pH 7.374 (7.320-7.450) 11/13/20 16:43 POC ABG pCO2 68.4 mmHg (32.0-48.0) H 11/13/20 16:43 ABG pCO2 55.5 mm Hg 10/16/20 05:10 POC ABG pO2 101.9 mmHg (83-108) 11/13/20 16:43 ABG pO2 104.5 mm Hg (80.0-90.0) H 10/16/20 05:10 POC ABG HCO3 39.0 11/13/20 16:43 ABG HCO3 35.1 mmol/L (20.0-26.0) H 10/16/20 05:10 ABG O2 Saturation 97.8 (0-100) 11/13/20 16:43 ABG O2 Content 10.8 (0.0-44) 10/16/20 05:10 POC ABG Base Excess 11.7 11/13/20 16:43 ABG Base Excess 9.5 mmol/L (-2.0-3.0) H 10/16/20 05:10 ABG Hemoglobin 10.0 (12.0-17.5) L 11/13/20 16:43 ABG Oxyhemoglobin 96.7 (94-98) 11/13/20 16:43 ABG Carboxyhemoglobin 1.9 % (0.0-5.0) 10/16/20 05:10 ABG Methemoglobin 0.3 (0.0-1.5) 11/13/20 16:43 ABG Sodium 140.6 mmol/L (136.0-145.0) 11/13/20 16:43 ABG Potassium 4.2 mmol/L (3.40-4.50) 11/13/20 16:43 ABG Chloride 98.0 mmol/L (98-107) 11/13/20 16:43 ABG Glucose 133 mg/dL (65-95) H 11/13/20 16:43 VBG pH 6.870 (7.320-7.420) L* 10/10/20 10:48 Oxyhemoglobin 95.3 % (95.0-99.0) 10/16/20 05:10 Carboxyhemoglobin 0.8 (0.5-1.5) 11/13/20 16:43 FiO2 35 % 10/16/20 05:10 FiO2 % 35.0 11/13/20 16:43 Sodium 136 mmol/L (137-145) L 11/11/20 08:38 Potassium 4.2 mmol/L (3.6-5.0) 11/11/20 08:38 Chloride 97.6 mmol/L (98-107) L 11/11/20 08:38 Carbon Dioxide 35 mmol/L (22-30) H 11/11/20 08:38 Anion Gap 8 mmol/L 11/11/20 08:38 BUN 26 mg/dL (9-20) H 11/11/20 08:38 Creatinine 0.9 mg/dL (0.8-1.3) 11/11/20 08:38 Estimated GFR > 60 ml/min 11/11/20 08:38 BUN/Creatinine Ratio 29 % 11/11/20 08:38 Glucose 133 mg/dL (75-100) H 11/11/20 08:38 POC Glucose 128 mg/dL (70-105) H 11/15/20 23:57 Hemoglobin A1c 6.0 % (4-6) 10/11/20 02:00 Lactic Acid 1.10 mmol/L (0.7-2.0) 10/13/20 04:52 Calcium 8.0 mg/dL (8.4-10.2) L 11/11/20 08:38 Phosphorus 5.20 mg/dL (2.5-4.5) H D 10/17/20 03:32 Magnesium 2.30 mg/dL (1.7-2.3) 10/17/20 03:32 Ferritin 81.4 ng/mL (30.0-300.0) 10/10/20 10:48 Total Bilirubin 1.70 mg/dL (0.1-1.2) H 10/18/20 03:27 AST 37 units/L (5-40) 10/18/20 03:27 ALT 32 units/L (7-56) 10/18/20 03:27 Alkaline Phosphatase 97 units/L (35-129) 10/18/20 03:27 Ammonia 214.0 umol/L (25-60) H 10/10/20 10:46 Lactate Dehydrogenase 386 units/L (91-180) H 10/10/20 10:48 Total Creatine Kinase 1192 units/L (55-170) H 10/10/20 18:18 CK-MB (CK-2) 21.7 ng/mL (0.0-4.0) H 10/10/20 18:18 CK-MB (CK-2) Rel Index 1.8 (0-4) 10/10/20 18:18 Troponin T 0.125 ng/mL (0.00-0.029) H* D 10/12/20 04:00 C-Reactive Protein 0.90 mg/dL (0.00-1.30) 10/10/20 10:48 NT-Pro-B Natriuret Pep 1187 pg/mL (0-900) H 10/10/20 10:46 Total Protein 6.3 g/dL (6.3-8.2) 10/18/20 03:27 Albumin 3.1 g/dL (3.9-5) L 10/18/20 03:27 Albumin/Globulin Ratio 1.0 % 10/18/20 03:27 Triglycerides 278 mg/dL (2-149) H 10/13/20 04:52 Cholesterol 138 mg/dL (50-199) 10/10/20 18:18 LDL Cholesterol Direct 76 mg/dL (50-130) 10/10/20 18:18 HDL Cholesterol 49 mg/dL (40-59) 10/10/20 18:18 Cholesterol/HDL Ratio 2.81 % 10/10/20 18:18 Procalcitonin 4.98 ng/mL (<0.15) 10/15/20 04:12 TSH 6.260 mlU/mL (0.270-4.200) H 10/10/20 10:46 Arterial Blood Glucose 133 mg/dL (65-95) H 11/13/20 16:43 Arterial Blood Ionized Calcium 4.7 mg/dL (4.6-5.3) 11/13/20 16:43 Urine Color Angelica (Yellow) 10/18/20 Unknown Urine Turbidity Cloudy (Clear) 10/18/20 Unknown Urine pH 5.0 (5.0-7.0) 10/18/20 Unknown Ur Specific [place] 1.017 (1.003-1.030) 10/18/20 Unknown Urine Protein 100 mg/dl mg/dL (Negative) 10/18/20 Unknown Urine Glucose (UA) Neg mg/dL (Negative) 10/18/20 Unknown Urine Ketones Neg mg/dL (Negative) 10/18/20 Unknown Urine Blood Lg (Negative) 10/18/20 Unknown Urine Nitrite Neg (Negative) 10/18/20 Unknown Urine Bilirubin Neg (Negative) 10/18/20 Unknown Urine Urobilinogen 4.0 mg/dL (<2.0) 10/18/20 Unknown Ur Leukocyte Esterase Neg (Negative) 10/18/20 Unknown Urine WBC (Auto) 115.0 /HPF (0.0-6.0) H 10/18/20 Unknown Urine RBC (Auto) 98.0 /HPF (0.0-6.0) 10/18/20 Unknown U Epithel Cells (Auto) 2.0 /HPF (0-13.0) 10/18/20 Unknown Urine WBC Clumps 3+ /HPF 10/18/20 Unknown Urine Mucus Few /HPF 10/11/20 13:30 Urine Eosinophils None seen (None Seen) 10/11/20 13:30 Urine Creatinine 93.7 mg/dL (0.1-20.0) H 10/19/20 13:14 Urine Sodium 25 mmol/L 10/19/20 13:14 Urine Urea Nitrogen 845 10/19/20 13:14 Nasal Screen MRSA (PCR) Positive (Negative) 10/20/20 13:30 Random Vancomycin 5.8 ug/mL (0-40.0) 10/21/20 06:30 Urine Opiates Screen Negative 10/10/20 10:50 Urine Methadone Screen Negative 10/10/20 10:50 Ur Barbiturates Screen Negative 10/10/20 10:50 Ur Phencyclidine Scrn Negative 10/10/20 10:50 Ur Amphetamines Screen Negative 10/10/20 10:50 U Benzodiazepines Scrn Negative 10/10/20 10:50 Urine Cocaine Screen Negative 10/10/20 10:50 U Marijuana (THC) Screen Positive 10/10/20 10:50 Drugs of Abuse Note Disclamer 10/10/20 10:50 Plasma/Serum Alcohol < 0.01 % (0-0.07) 10/10/20 10:48 Coronavirus (PCR) Negative (Negative) 10/11/20 Unknown Blood Type AB POSITIVE 10/10/20 10:48 Antibody Screen Negative 10/10/20 10:48 Microbiology: Microbiology 10/18/20 09:56 Tracheal Aspirate Sputum Culture - Final Methicillin Resist S. Aureus Tuttle/IV: Voiding Method Indwelling Catheter Active Medications - Current Medications Current Medications: Generic Name Dose Route Start Last Admin Trade Name Freq PRN Reason Stop Dose Admin Acetaminophen 650 mg 10/10/20 21:51 11/16/20 00:35 Acetaminophen 325 Mg Tab PO 650 mg Q4H PRN Administration Pain MILD(1-3)/Fever >100.5/SALVADOR Albuterol 2.5 mg 10/11/20 13:12 11/14/20 09:54 Albuterol 2.5 Mg/3 Ml Nebu IH 2.5 mg Q6HRT PRN Administration Shortness Of Breath Amlodipine Besylate 10 mg 10/25/20 13:00 11/15/20 09:26 Amlodipine 10 Mg Tab PO 10 mg QDAY PEPITO Administration Lipase/Protease/Amylase 1 each 10/10/20 22:18 Lipase 10,500/Protease 25,000/Amylase 43,750 (Units) Dr Santana FEEDTUBE PRN PRN For Clogged Feeding Tube Clonidine HCl 0.3 mg 10/14/20 15:00 11/11/20 14:03 Clonidine Tts 0.3 Mg/24 Hr Patch TD 0.3 mg Fr PEPITO Administration Docusate Sodium 100 mg 10/16/20 22:00 11/15/20 22:01 Docusate Sodium 100 Mg/10 Ml Oral Liqd PO 100 mg BID PEPITO Administration Fentanyl 1 applic 11/09/20 18:00 11/15/20 19:54 Fentanyl 25 Mcg/Hr Patch 72hr TD 1 applic Q72H PEPITO Administration Glycopyrrolate 1 mg 11/04/20 14:00 11/16/20 06:01 Glycopyrrolate 1 Mg Tab PO 1 mg Q8HR PEPITO Administration Heparin Sodium (Porcine) 5,000 unit 10/11/20 22:00 11/15/20 22:02 Heparin 5,000 Unit/1 Ml Vial SUB-Q 5,000 unit Q12HR PEPITO Administration Hydralazine HCl 10 mg 11/02/20 08:46 11/14/20 12:01 Hydralazine 20 Mg/1 Ml Inj IV 10 mg Q6H PRN Administration Hypertension Hydralazine HCl 100 mg 11/10/20 06:00 11/16/20 06:01 Hydralazine 100 Mg Tab PO 100 mg Q8HR PEPITO Administration Hydromorphone HCl 0.5 mg 11/01/20 20:55 11/15/20 16:17 Hydromorphone 1 Mg/1 Ml Inj IV 0.5 mg Q3H PRN Administration Pain , Severe (7-10) Hydrophilic Ointment 1 applic 10/10/20 10:34 Lip Therapy Vaseline TP Q2HR PRN Dry Lips Lansoprazole 30 mg 10/24/20 10:00 11/15/20 22:02 Lansoprazole 30 Mg Solutab FEEDTUBE 30 mg BID PEPITO Administration Levetiracetam 500 mg 10/31/20 10:00 11/15/20 22:02 Levetiracetam 500 Mg/5 Ml Oral Liqd PO 500 mg BID PEPITO Administration Lorazepam 1 mg 11/04/20 19:27 11/16/20 00:35 Lorazepam 2 Mg/Ml Vial IV 1 mg Q4H PRN Administration Agitation Metoprolol Tartrate 100 mg 10/21/20 14:00 11/15/20 22:01 Metoprolol Tartrate 50 Mg Tab PO 100 mg TID PEPITO Administration Multi-Ingred Cream/Lotion/Oil/Oint 1 applic 10/10/20 10:34 Mineral Oil/Petrolatum, White Ophth Oint 3.5 Gm OU Q4HR PRN Dry Eye(s) Ondansetron HCl 4 mg 10/10/20 21:51 11/01/20 20:48 Ondansetron 4 Mg/2 Ml Inj IV 4 mg Q3H PRN Administration Nausea And Vomiting Polyethylene Glycol 17 gm 10/17/20 10:00 11/15/20 09:27 Polyethylene Glycol 3350 17 Gm Powder PO 17 gm QDAY PEPITO Administration Quetiapine Fumarate 100 mg 11/02/20 10:00 11/15/20 09:26 Quetiapine 100 Mg Tab PO 100 mg DAILY PEPITO Administration Quetiapine Fumarate 200 mg 11/07/20 22:00 11/15/20 22:01 Quetiapine 200 Mg Tab PO 200 mg QHS PEPITO Administration Quetiapine Fumarate 25 mg 11/07/20 14:00 11/15/20 09:26 Quetiapine 25 Mg Tab PO 25 mg DAILY PEPITO Administration Scopolamine 1 each 10/17/20 10:00 11/13/20 09:04 Scopolamine Transdermal Patch 72 Hr TD 1 each Q3D PEPITO Administration Simple Syrup 15 ml 10/10/20 22:18 Simple Syrup 15 Ml FEEDTUBE PRN PRN Hypoglycemia Simple Syrup 30 ml 10/10/20 22:18 Simple Syrup 15 Ml FEEDTUBE PRN PRN Hypoglycemia Sodium Bicarbonate 325 mg 10/10/20 22:18 Sodium Bicarbonate 325 Mg Tab FEEDTUBE PRN PRN For Clogged Feeding Tube Sodium Chloride 10 ml 10/10/20 22:00 11/15/20 22:02 Sodium Chloride 0.9% 10 Ml Flush Syringe IV 10 ml BID PEPITO Administration Nutrition/Malnutrition Assess - Dietary Evaluation Nutrition/Malnutrition Findings: Nutrition Notes Start: 10/11/20 08:38 Freq: Status: Active Protocol: Document 11/14/20 10:59 (Rec: 11/14/20 11:06 [id number]) Nutrition Notes Initial or Follow up Reassessment Current Diagnosis Acute Kidney Injury,Sepsis, Hypertension,Heart Failure, Respiratory Failure Other Pertinent Diagnosis GIB, pneu, MRSA PA, pulmonary edema Current Diet Promote at 80 ml/hr Labs/Tests Reviewed Pertinent Medications Miralax Height 6 ft Weight 130.2 kg M[place]a Body Weight (kg) 80.90 BMI 38.9 Weight Status Morbidly Obese Subjective/Other Information FU for TF tolerance. TF not running. Per RN, pt with distended abd and bladder retention causing respiratory distress. Per MD, pt getting x -ray this AM then will continue TF. Percent of energy/protein needs met: 0%/0% Burn Absent Trauma Absent Difficulty In Swallowing Skin Integrity/Comment DTI to heel Current % PO Negligible Minimum of two criteria No Fluid Accumulation Mild (non-severe) #3 Nutrition Diagnosis Increased nutrient needs ( specify in comment below) Diagnosis Progress(for reassessment Continues documentation) #1 Nutrition Diagnosis Inadequate oral intake Diagnosis Progress(for reassessment Continues documentation) Is patient on ventilator? Yes Is Patient Ambulatory and/or Out of Bed No REE-([place]-confined to bed) 2625.528 Kcal/Kg value to use for calculation 15 Approximate Energy Requirements Using 1953 kcal/Kg Calculation Used for Recommendations Kcal/kg Additional Notes protein needs: >162g (>2 kgIBW of dry weight) fluid needs: 1 ml/kcal or per MD Nutrition Intervention Change Diet Order: Continue when medically able Nutrition Support: Promote at 80 ml/hr flush of 50 ml q4h. Kcal 1,920 Protein (gm) 120 Fluid (mL) 1,611 Goal #1 Tolerate TF Goal #2 Meet at least 70% of protein and 100% of kcal needs via TF Anticipated Discharge Needs: TF Follow-Up By: 11/16/20 Additional Comments FU for TF restart and tolerance
[2020-11-16] MEDS: QUEtiapine 100 MG TAB PO SCH (09:46)
[2020-11-16] MEDS: levETIRAcetam 500 MG/5 ML ORAL LIQD PO SCH ×2 (09:46→22:18)
[2020-11-16] MEDS: LANSOPRAZOLE 30 MG SOLUTAB FEEDTUBE SCH ×2 (09:46→22:18)
[2020-11-16] MEDS: POLYETHYLENE GLYCOL 3350 17 GM POWDER PO SCH (09:46)
[2020-11-16] MEDS: HEPARIN 5,000 UNIT/1 ML VIAL SUB-Q SCH ×2 (09:46→22:19)
[2020-11-16] MEDS: QUEtiapine 25 MG TAB PO SCH (09:46)
[2020-11-16] MEDS: SCOPOLAMINE TRANSDERMAL PATCH 72 HR TD SCH (09:46)
[2020-11-16] MEDS: DOCUSATE SODIUM 100 MG/10 ML ORAL LIQD PO SCH ×2 (09:47→22:19)
[2020-11-16] MEDS: METOPROLOL TARTRATE 50 MG TAB PO SCH ×3 (09:47→20:53)
[2020-11-16] MEDS: amLODIPine 10 MG TAB PO SCH (09:47)
--- NOTE | 2020-11-16 16:44 | Progress Note ---
Assessment and Plan [id number] -[place] male with history of hypertension and asthma and obesity who became unresponsive after COVID-19 vaccination. Patient was brought to the ED and coded twice. Patient resuscitated and placed on mechanical ventila tion. Patient subsequently had tracheostomy. Patient weaned from ventilator. Patient presently on T-tube. Patient not responding to verbal stimuli. Presently resting on trach collar. FiO2 35%. O2 saturation running 100%. No acute respiratory distress. Patient running a low grade temperature. No leukocytosis. Chest X-ray done 11/12/20. Reported mild, diffuse disease, suggesting pulmonary edema. Patient presently on s/c heparin, prevacid, and albuterol. Called the patients , and explained the patients respiratory status. - Patient Problems (1) Acute respiratory failure with hypoxia and hypercarbia Current Visit: Yes Status: Acute Plan to address problem: Patient presently on T-tube. FiO2 35%. O2 saturation 100%. Continue albuterol aerosol treatments. Respiratory suctioning as needed. Continue s/c heparin. Continue prevacid. (2) Bilateral pneumonia Current Visit: Yes Status: Acute Plan to address problem: Pneumonia is improved. Repeat chest x-ray on 11/12/20. Reported mild, diffuse disease, suggesting pulmonary edema. Patient afebrile, no leukocytosis. (3) Cardiopulmonary arrest with successful resuscitation Current Visit: Yes Status: Acute Plan to address problem: Patient successfully resuscitated. Presently resting on T-tube. (4) MOE (acute kidney injury) Current Visit: Yes Status: Acute Plan to address problem: Management per Neprology. (5) Accelerated hypertension Current Visit: Yes Status: Acute Plan to address problem: Management per primary care. (6) Acute heart failure with preserved ejection fraction (HFpEF) Current Visit: Yes Status: Acute Plan to address problem: Management per cardiology. (7) Atrial fibrillation and flutter Current Visit: Yes Status: Acute Plan to address problem: Management per cardiology. (8) GI bleed Current Visit: Yes Status: Acute Plan to address problem: Management per GI. (9) Hypotension Current Visit: Yes Status: Acute Plan to address problem: Improved. Today's BP is 152/98 (10) NSTEMI (non-ST elevated myocardial infarction) Current Visit: Yes Status: Acute Plan to address problem: Management per cardiology. (11) Seizure Current Visit: Yes Status: Acute Plan to address problem: Management per primary care and Neurology. Subjective Date of service: 11/16/20 Principal diagnosis: Cardiac arrest; Septic Shock; Ac. hypoxemic & hypercapnic resp failure; MOE Interval history: 55-year-old -[place] male with history of hypertension and asthma and obesity who became unresponsive after COVID-19 vaccination. Patient was brought to the ED and coded twice. Patient resuscitated and placed on mechanical ventilation. Patient subsequently had tracheostomy. Patient weaned from ventilator. Patient presently on T-tube. Patient not responding to verbal stimuli. Presently resting on trach collar. FiO2 35%. O2 saturation running 100%. No acute respiratory distress. Patient running a low grade temperature. No leukocytosis. Chest X-ray done 11/12/20. Reported mild, diffuse disease, suggesting pulmonary edema. Patient presently on s/c heparin, prevacid, and albuterol. Called the patients and explained patients respiratory status. Objective Vital Signs - 12hr 11/16/20 11/16/20 11/16/20 09:40 09:47 09:55 Temperature 98.1 F Pulse Rate 101 H 101 H Pulse Rate [ From Monitor] Respiratory 19 Rate Blood Pressure 167/110 Blood Pressure 167/110 [Right] O2 Sat by Pulse 97 Oximetry O2 Sat by Pulse 97 Oximetry [ Assessment] 11/16/20 11/16/20 11/16/20 10:00 11:45 13:22 Temperature 97.9 F Pulse Rate 99 H 97 H Pulse Rate [ 99 H From Monitor] Respiratory 18 16 Rate Blood Pressure 152/98 Blood Pressure 158/86 [Right] O2 Sat by Pulse 97 97 Oximetry O2 Sat by Pulse Oximetry [ Assessment] Constitutional: no acute distress, asleep Eyes: non-icteric ENT: oropharynx moist, oropharyngeal exudate pre (thick), other (midline tracheostomy) Neck: supple, no lymphadenopathy, no JVD Effort: mildly labored Ascultation: Bilateral: diminished breath sounds, rhonchi (scant) Percussion: Bilateral: not dull Cardiovascular: regular rate and rhythm, other (S1,S2) Gastrointestinal: normoactive bowel sounds, soft, non-tender, non-distended (protuberant) Integumentary: normal Extremities: no cyanosis, no edema, pulses normal, no ischemia or petechiae Neurologic: pupils equal and round, unable to assess, other (encephalopathic) Psychiatric: other (unable to assess re: AMS) CBC and BMP: 11/17/20 03:48 11/17/20 03:48 ABG, PT/INR, D-dimer: ABG ABG pH 7.374 (7.320-7.450) 11/13/20 16:43 POC ABG pCO2 68.4 mmHg (32.0-48.0) H 11/13/20 16:43 ABG pCO2 55.5 mm Hg 10/16/20 05:10 POC ABG pO2 101.9 mmHg (83-108) 11/13/20 16:43 ABG pO2 104.5 mm Hg (80.0-90.0) H 10/16/20 05:10 POC ABG HCO3 39.0 11/13/20 16:43 ABG O2 Saturation 97.8 (0-100) 11/13/20 16:43 PT/INR, D-dimer PT 13.5 Sec. (12.2-14.9) 10/28/20 07:00 INR 1.05 (0.87-1.13) 10/28/20 07:00 D-Dimer 679.5 ng/mlDDU (0-234) H 10/10/20 10:48 Abnormal lab findings: Abnormal Labs 10/10/20 10/10/20 10/10/20 10:46 10:46 10:46 WBC RBC Hgb Hct RDW Lymph % (Auto) Carson % (Auto) Eos % (Auto) Lymph # (Auto) Carson # (Auto) Eos # (Auto) Seg Neutrophils % Lymphocytes % (Manual) Monocytes % (Manual) Seg Neutrophils # Seg Neutrophils # Man Lymphocytes # (Manual) Monocytes # (Manual) D-Dimer Heparin Anti-Xa Level ABG pH POC ABG pCO2 POC ABG pO2 ABG pO2 ABG HCO3 ABG O2 Saturation ABG Base Excess ABG Hemoglobin ABG Oxyhemoglobin ABG Sodium ABG Potassium ABG Chloride ABG Glucose VBG pH Oxyhemoglobin Carboxyhemoglobin Sodium Potassium Chloride Carbon Dioxide BUN Creatinine Glucose POC Glucose Lactic Acid 13.60 H* Calcium Phosphorus Magnesium Total Bilirubin AST ALT Ammonia 214.0 H Lactate Dehydrogenase Total Creatine Kinase CK-MB (CK-2) Troponin T NT-Pro-B Natriuret Pep Total Protein Albumin Triglycerides TSH 6.260 H Arterial Blood Glucose Arterial Blood Ionized Calcium Urine pH Urine WBC (Auto) Urine Creatinine 10/10/20 10/10/20 10/10/20 10:46 10:48 10:48 WBC RBC 5.28 H Hgb 15.5 H Hct 48.8 H RDW Lymph % (Auto) [place] % (Auto) Eos % (Auto) Lymph # (Auto) [place] # (Auto) Eos # (Auto) Seg Neutrophils % Lymphocytes % (Manual) 42.0 H Monocytes % (Manual) Seg Neutrophils # Seg Neutrophils # Man Lymphocytes # (Manual) Monocytes # (Manual) D-Dimer Heparin Anti-Xa Level ABG pH POC ABG pCO2 POC ABG pO2 ABG pO2 ABG HCO3 ABG O2 Saturation ABG Base Excess ABG Hemoglobin ABG Oxyhemoglobin ABG Sodium ABG Potassium ABG Chloride ABG Glucose VBG pH Oxyhemoglobin Carboxyhemoglobin Sodium Potassium 3.3 L Chloride 91.2 L Carbon Dioxide BUN Creatinine 1.8 H Glucose 231 H POC Glucose Lactic Acid Calcium Phosphorus Magnesium Total Bilirubin AST 60 H ALT 57 H Ammonia Lactate Dehydrogenase Total Creatine Kinase CK-MB (CK-2) Troponin T NT-Pro-B Natriuret Pep 1187 H Total Protein 9.0 H Albumin Triglycerides TSH Arterial Blood Glucose Arterial Blood Ionized Calcium Urine pH Urine WBC (Auto) Urine Creatinine 10/10/20 10/10/20 10/10/20 10:48 10:48 10:48 WBC RBC Hgb Hct RDW Lymph % (Auto) [place] % (Auto) Eos % (Auto) Lymph # (Auto) [place] # (Auto) Eos # (Auto) Seg Neutrophils % Lymphocytes % (Manual) Monocytes % (Manual) Seg Neutrophils # Seg Neutrophils # Man Lymphocytes # (Manual) Monocytes # (Manual) D-Dimer 679.5 H Heparin Anti-Xa Level ABG pH POC ABG pCO2 POC ABG pO2 ABG pO2 ABG HCO3 ABG O2 Saturation ABG Base Excess ABG Hemoglobin ABG Oxyhemoglobin ABG Sodium ABG Potassium ABG Chloride ABG Glucose VBG pH 6.870 L* Oxyhemoglobin Carboxyhemoglobin Sodium Potassium Chloride Carbon Dioxide BUN Creatinine Glucose POC Glucose Lactic Acid Calcium Phosphorus Magnesium Total Bilirubin AST ALT Ammonia Lactate Dehydrogenase 386 H Total Creatine Kinase CK-MB (CK-2) Troponin T NT-Pro-B Natriuret Pep Total Protein Albumin Triglycerides TSH Arterial Blood Glucose Arterial Blood Ionized Calcium Urine pH Urine WBC (Auto) Urine Creatinine 10/10/20 10/10/20 10/10/20 14:10 14:20 15:50 WBC RBC Hgb Hct RDW Lymph % (Auto) [place] % (Auto) Eos % (Auto) Lymph # (Auto) [place] # (Auto) Eos # (Auto) Seg Neutrophils % Lymphocytes % (Manual) Monocytes % (Manual) Seg Neutrophils # Seg Neutrophils # Man Lymphocytes # (Manual) Monocytes # (Manual) D-Dimer Heparin Anti-Xa Level ABG pH 7.175 L 7.247 L POC ABG pCO2 85.0 H POC ABG pO2 43.7 L ABG pO2 60.3 L ABG HCO3 32.0 H ABG O2 Saturation 86.1 L ABG Base Excess ABG Hemoglobin ABG Oxyhemoglobin 67.7 L ABG Sodium ABG Potassium ABG Chloride ABG Glucose 247 H VBG pH Oxyhemoglobin 84.4 L Carboxyhemoglobin Sodium Potassium Chloride Carbon Dioxide BUN Creatinine Glucose POC Glucose Lactic Acid 4.00 H* Calcium Phosphorus Magnesium Total Bilirubin AST ALT Ammonia Lactate Dehydrogenase Total Creatine Kinase CK-MB (CK-2) Troponin T NT-Pro-B Natriuret Pep Total Protein Albumin Triglycerides TSH Arterial Blood Glucose 247 H Arterial Blood Ionized Calcium 4.4 L Urine pH Urine WBC (Auto) Urine Creatinine 10/10/20 10/10/20 10/10/20 15:50 16:22 18:18 WBC RBC Hgb Hct RDW Lymph % (Auto) [place] % (Auto) Eos % (Auto) Lymph # (Auto) [place] # (Auto) Eos # (Auto) Seg Neutrophils % Lymphocytes % (Manual) Monocytes % (Manual) Seg Neutrophils # Seg Neutrophils # Man Lymphocytes # (Manual) Monocytes # (Manual) D-Dimer Heparin Anti-Xa Level ABG pH 7.171 L POC ABG pCO2 96.6 H POC ABG pO2 55.3 L ABG pO2 ABG HCO3 ABG O2 Saturation ABG Base Excess ABG Hemoglobin ABG Oxyhemoglobin 81.4 L ABG Sodium ABG Potassium ABG Chloride ABG Glucose 115 H VBG pH Oxyhemoglobin Carboxyhemoglobin Sodium Potassium Chloride Carbon Dioxide BUN Creatinine Glucose POC Glucose 132 H Lactic Acid Calcium Phosphorus Magnesium Total Bilirubin AST ALT Ammonia Lactate Dehydrogenase Total Creatine Kinase 1192 H CK-MB (CK-2) 21.7 H Troponin T 0.377 H* D NT-Pro-B Natriuret Pep Total Protein Albumin Triglycerides TSH Arterial Blood Glucose 115 H Arterial Blood Ionized Calcium Urine pH Urine WBC (Auto) Urine Creatinine 10/10/20 10/10/20 10/10/20 18:18 18:18 22:49 WBC 23.0 H RBC 5.12 H Hgb Hct RDW Lymph % (Auto) [place] % (Auto) Eos % (Auto) Lymph # (Auto) [place] # (Auto) Eos # (Auto) Seg Neutrophils % Lymphocytes % (Manual) 4.0 L Monocytes % (Manual) 9.0 H Seg Neutrophils # Seg Neutrophils # Man 13.8 H Lymphocytes # (Manual) 0.9 L Monocytes # (Manual) 2.1 H D-Dimer Heparin Anti-Xa Level ABG pH POC ABG pCO2 POC ABG pO2 ABG pO2 ABG HCO3 ABG O2 Saturation ABG Base Excess ABG Hemoglobin ABG Oxyhemoglobin ABG Sodium ABG Potassium ABG Chloride ABG Glucose VBG pH Oxyhemoglobin Carboxyhemoglobin Sodium 146 H Potassium Chloride Carbon Dioxide 34 H D BUN 27 H Creatinine 2.7 H Glucose 102 H POC Glucose Lactic Acid Calcium Phosphorus Magnesium Total Bilirubin AST 90 H ALT 66 H Ammonia Lactate Dehydrogenase Total Creatine Kinase CK-MB (CK-2) Troponin T 0.273 H* D NT-Pro-B Natriuret Pep Total Protein Albumin Triglycerides TSH Arterial Blood Glucose Arterial Blood Ionized Calcium Urine pH Urine WBC (Auto) Urine Creatinine 10/11/20 10/11/20 10/11/20 02:00 02:00 02:00 WBC 17.3 H RBC Hgb Hct RDW Lymph % (Auto) 3.9 L [place] % (Auto) Eos % (Auto) Lymph # (Auto) 0.7 L [place] # (Auto) Eos # (Auto) Seg Neutrophils % 93.0 H Lymphocytes % (Manual) Monocytes % (Manual) Seg Neutrophils # 16.1 H Seg Neutrophils # Man Lymphocytes # (Manual) Monocytes # (Manual) D-Dimer Heparin Anti-Xa Level ABG pH POC ABG pCO2 POC ABG pO2 ABG pO2 ABG HCO3 ABG O2 Saturation ABG Base Excess ABG Hemoglobin ABG Oxyhemoglobin ABG Sodium ABG Potassium ABG Chloride ABG Glucose VBG pH Oxyhemoglobin Carboxyhemoglobin Sodium 149 H Potassium 3.3 L Chloride 95.3 L Carbon Dioxide 37 H BUN 29 H Creatinine 2.6 H Glucose POC Glucose Lactic Acid Calcium Phosphorus Magnesium Total Bilirubin AST 80 H ALT 59 H Ammonia Lactate Dehydrogenase Total Creatine Kinase CK-MB (CK-2) Troponin T 0.201 H* D NT-Pro-B Natriuret Pep Total Protein Albumin 3.6 L Triglycerides TSH Arterial Blood Glucose Arterial Blood Ionized Calcium Urine pH Urine WBC (Auto) Urine Creatinine 10/11/20 10/11/20 10/11/20 03:51 08:35 11:15 WBC RBC Hgb Hct RDW Lymph % (Auto) [place] % (Auto) Eos % (Auto) Lymph # (Auto) [place] # (Auto) Eos # (Auto) Seg Neutrophils % Lymphocytes % (Manual) Monocytes % (Manual) Seg Neutrophils # Seg Neutrophils # Man Lymphocytes # (Manual) Monocytes # (Manual) D-Dimer Heparin Anti-Xa Level 0.22 L ABG pH 7.491 H POC ABG pCO2 57.6 H POC ABG pO2 ABG pO2 ABG HCO3 ABG O2 Saturation ABG Base Excess ABG Hemoglobin ABG Oxyhemoglobin ABG Sodium 150.0 H ABG Potassium 3.1 L ABG Chloride 96.0 L ABG Glucose 122 H VBG pH Oxyhemoglobin Carboxyhemoglobin Sodium Potassium Chloride Carbon Dioxide BUN Creatinine Glucose POC Glucose 151 H Lactic Acid Calcium Phosphorus Magnesium Total Bilirubin AST ALT Ammonia Lactate Dehydrogenase Total Creatine Kinase CK-MB (CK-2) Troponin T NT-Pro-B Natriuret Pep Total Protein Albumin Triglycerides TSH Arterial Blood Glucose 122 H Arterial Blood Ionized Calcium 3.9 L Urine pH Urine WBC (Auto) Urine Creatinine 10/11/20 10/11/20 10/11/20 13:30 13:30 13:30 WBC 15.0 H RBC Hgb Hct RDW Lymph % (Auto) [place] % (Auto) Eos % (Auto) Lymph # (Auto) [place] # (Auto) Eos # (Auto) Seg Neutrophils % Lymphocytes % (Manual) Monocytes % (Manual) Seg Neutrophils # Seg Neutrophils # Man Lymphocytes # (Manual) Monocytes # (Manual) D-Dimer Heparin Anti-Xa Level ABG pH POC ABG pCO2 POC ABG pO2 ABG pO2 ABG HCO3 ABG O2 Saturation ABG Base Excess ABG Hemoglobin ABG Oxyhemoglobin ABG Sodium ABG Potassium ABG Chloride ABG Glucose VBG pH Oxyhemoglobin Carboxyhemoglobin Sodium Potassium Chloride Carbon Dioxide BUN Creatinine Glucose POC Glucose Lactic Acid Calcium Phosphorus Magnesium Total Bilirubin AST ALT Ammonia Lactate Dehydrogenase Total Creatine Kinase CK-MB (CK-2) Troponin T NT-Pro-B Natriuret Pep Total Protein Albumin Triglycerides TSH Arterial Blood Glucose Arterial Blood Ionized Calcium Urine pH 9.0 H Urine WBC (Auto) 18.0 H Urine Creatinine 80.5 H 10/11/20 10/11/20 10/12/20 17:17 23:14 03:53 WBC RBC Hgb Hct RDW Lymph % (Auto) [place] % (Auto) Eos % (Auto) Lymph # (Auto) [place] # (Auto) Eos # (Auto) Seg Neutrophils % Lymphocytes % (Manual) Monocytes % (Manual) Seg Neutrophils # Seg Neutrophils # Man Lymphocytes # (Manual) Monocytes # (Manual) D-Dimer Heparin Anti-Xa Level ABG pH 7.545 H POC ABG pCO2 54.6 H POC ABG pO2 231.9 H ABG pO2 ABG HCO3 ABG O2 Saturation ABG Base Excess ABG Hemoglobin ABG Oxyhemoglobin 98.5 H ABG Sodium 150.5 H ABG Potassium 3.2 L ABG Chloride 96.0 L ABG Glucose 148 H VBG pH Oxyhemoglobin Carboxyhemoglobin Sodium Potassium Chloride Carbon Dioxide BUN Creatinine Glucose POC Glucose 121 H 135 H Lactic Acid Calcium Phosphorus Magnesium Total Bilirubin AST ALT Ammonia Lactate Dehydrogenase Total Creatine Kinase CK-MB (CK-2) Troponin T NT-Pro-B Natriuret Pep Total Protein Albumin Triglycerides TSH Arterial Blood Glucose 148 H Arterial Blood Ionized Calcium 3.8 L Urine pH Urine WBC (Auto) Urine Creatinine 10/12/20 10/12/20 10/12/20 04:00 05:10 05:12 WBC 14.3 H RBC Hgb 11.6 L Hct 35.2 L RDW Lymph % (Auto) [place] % (Auto) Eos % (Auto) Lymph # (Auto) [place] # (Auto) Eos # (Auto) Seg Neutrophils % Lymphocytes % (Manual) Monocytes % (Manual) Seg Neutrophils # Seg Neutrophils # Man Lymphocytes # (Manual) Monocytes # (Manual) D-Dimer Heparin Anti-Xa Level ABG pH POC ABG pCO2 POC ABG pO2 ABG pO2 ABG HCO3 ABG O2 Saturation ABG Base Excess ABG Hemoglobin ABG Oxyhemoglobin ABG Sodium ABG Potassium ABG Chloride ABG Glucose VBG pH Oxyhemoglobin Carboxyhemoglobin Sodium 155 H Potassium 3.3 L Chloride 97.9 L Carbon Dioxide 47 H* D BUN 50 H Creatinine 3.4 H Glucose 146 H POC Glucose 137 H Lactic Acid Calcium 8.0 L Phosphorus Magnesium Total Bilirubin AST ALT Ammonia Lactate Dehydrogenase Total Creatine Kinase CK-MB (CK-2) Troponin T 0.125 H* D NT-Pro-B Natriuret Pep Total Protein Albumin Triglycerides TSH Arterial Blood Glucose Arterial Blood Ionized Calcium Urine pH Urine WBC (Auto) Urine Creatinine 10/12/20 10/12/20 10/12/20 11:39 16:01 19:49 WBC RBC Hgb Hct RDW Lymph % (Auto) [place] % (Auto) Eos % (Auto) Lymph # (Auto) [place] # (Auto) Eos # (Auto) Seg Neutrophils % Lymphocytes % (Manual) Monocytes % (Manual) Seg Neutrophils # Seg Neutrophils # Man Lymphocytes # (Manual) Monocytes # (Manual) D-Dimer Heparin Anti-Xa Level ABG pH POC ABG pCO2 POC ABG pO2 ABG pO2 ABG HCO3 ABG O2 Saturation ABG Base Excess ABG Hemoglobin ABG Oxyhemoglobin ABG Sodium ABG Potassium ABG Chloride ABG Glucose VBG pH Oxyhemoglobin Carboxyhemoglobin Sodium 157 H Potassium 3.3 L Chloride Carbon Dioxide 47 H* BUN 52 H Creatinine 3.0 H Glucose 137 H POC Glucose 138 H 119 H Lactic Acid Calcium 8.0 L Phosphorus Magnesium Total Bilirubin AST ALT Ammonia Lactate Dehydrogenase Total Creatine Kinase CK-MB (CK-2) Troponin T NT-Pro-B Natriuret Pep Total Protein Albumin Triglycerides TSH Arterial Blood Glucose Arterial Blood Ionized Calcium Urine pH Urine WBC (Auto) Urine Creatinine 10/12/20 10/13/20 10/13/20 23:37 02:28 04:52 WBC RBC Hgb Hct RDW Lymph % (Auto) [place] % (Auto) Eos % (Auto) Lymph # (Auto) [place] # (Auto) Eos # (Auto) Seg Neutrophils % Lymphocytes % (Manual) Monocytes % (Manual) Seg Neutrophils # Seg Neutrophils # Man Lymphocytes # (Manual) Monocytes # (Manual) D-Dimer Heparin Anti-Xa Level ABG pH 7.485 H POC ABG pCO2 57.1 H POC ABG pO2 ABG pO2 ABG HCO3 ABG O2 Saturation ABG Base Excess ABG Hemoglobin ABG Oxyhemoglobin ABG Sodium 152.4 H ABG Potassium ABG Chloride ABG Glucose 129 H VBG pH Oxyhemoglobin Carboxyhemoglobin Sodium 155 H Potassium Chloride Carbon Dioxide 45 H* BUN 52 H Creatinine 2.7 H Glucose 121 H POC Glucose 131 H Lactic Acid Calcium Phosphorus Magnesium 2.40 H Total Bilirubin AST ALT Ammonia Lactate Dehydrogenase Total Creatine Kinase CK-MB (CK-2) Troponin T NT-Pro-B Natriuret Pep Total Protein Albumin Triglycerides 278 H TSH Arterial Blood Glucose 129 H Arterial Blood Ionized Calcium 4.1 L Urine pH Urine WBC (Auto) Urine Creatinine 10/13/20 10/13/20 10/13/20 04:52 05:13 11:37 WBC 14.7 H RBC Hgb 11.7 L Hct RDW 15.8 H Lymph % (Auto) [place] % (Auto) Eos % (Auto) Lymph # (Auto) [place] # (Auto) Eos # (Auto) Seg Neutrophils % Lymphocytes % (Manual) Monocytes % (Manual) Seg Neutrophils # Seg Neutrophils # Man Lymphocytes # (Manual) Monocytes # (Manual) D-Dimer Heparin Anti-Xa Level ABG pH POC ABG pCO2 POC ABG pO2 ABG pO2 ABG HCO3 ABG O2 Saturation ABG Base Excess ABG Hemoglobin ABG Oxyhemoglobin ABG Sodium ABG Potassium ABG Chloride ABG Glucose VBG pH Oxyhemoglobin Carboxyhemoglobin Sodium Potassium Chloride Carbon Dioxide BUN Creatinine Glucose POC Glucose 116 H 116 H Lactic Acid Calcium Phosphorus Magnesium Total Bilirubin AST ALT Ammonia Lactate Dehydrogenase Total Creatine Kinase CK-MB (CK-2) Troponin T NT-Pro-B Natriuret Pep Total Protein Albumin Triglycerides TSH Arterial Blood Glucose Arterial Blood Ionized Calcium Urine pH Urine WBC (Auto) Urine Creatinine 10/13/20 10/14/20 10/14/20 17:50 03:45 04:46 WBC 11.1 H RBC Hgb Hct RDW 15.3 H Lymph % (Auto) [place] % (Auto) Eos % (Auto) Lymph # (Auto) [place] # (Auto) Eos # (Auto) Seg Neutrophils % Lymphocytes % (Manual) Monocytes % (Manual) Seg Neutrophils # Seg Neutrophils # Man Lymphocytes # (Manual) Monocytes # (Manual) D-Dimer Heparin Anti-Xa Level ABG pH POC ABG pCO2 59.6 H POC ABG pO2 ABG pO2 ABG HCO3 ABG O2 Saturation ABG Base Excess ABG Hemoglobin ABG Oxyhemoglobin ABG Sodium 151.4 H ABG Potassium 3.3 L ABG Chloride ABG Glucose 138 H VBG pH Oxyhemoglobin Carboxyhemoglobin 1.6 H Sodium Potassium Chloride Carbon Dioxide BUN Creatinine Glucose POC Glucose 140 H Lactic Acid Calcium Phosphorus Magnesium Total Bilirubin AST ALT Ammonia Lactate Dehydrogenase Total Creatine Kinase CK-MB (CK-2) Troponin T NT-Pro-B Natriuret Pep Total Protein Albumin Triglycerides TSH Arterial Blood Glucose 138 H Arterial Blood Ionized Calcium 4.5 L Urine pH Urine WBC (Auto) Urine Creatinine 10/14/20 10/14/20 10/14/20 04:46 05:10 11:11 WBC RBC Hgb Hct RDW Lymph % (Auto) [place] % (Auto) Eos % (Auto) Lymph # (Auto) [place] # (Auto) Eos # (Auto) Seg Neutrophils % Lymphocytes % (Manual) Monocytes % (Manual) Seg Neutrophils # Seg Neutrophils # Man Lymphocytes # (Manual) Monocytes # (Manual) D-Dimer Heparin Anti-Xa Level ABG pH POC ABG pCO2 POC ABG pO2 ABG pO2 ABG HCO3 ABG O2 Saturation ABG Base Excess ABG Hemoglobin ABG Oxyhemoglobin ABG Sodium ABG Potassium ABG Chloride ABG Glucose VBG pH Oxyhemoglobin Carboxyhemoglobin Sodium 152 H Potassium 3.5 L Chloride Carbon Dioxide 38 H D BUN 46 H Creatinine 2.3 H Glucose 127 H POC Glucose 116 H 114 H Lactic Acid Calcium Phosphorus Magnesium Total Bilirubin AST ALT Ammonia Lactate Dehydrogenase Total Creatine Kinase CK-MB (CK-2) Troponin T NT-Pro-B Natriuret Pep Total Protein Albumin Triglycerides TSH Arterial Blood Glucose Arterial Blood Ionized Calcium Urine pH Urine WBC (Auto) Urine Creatinine 10/14/20 10/14/20 10/15/20 18:53 23:23 04:12 WBC RBC Hgb Hct RDW Lymph % (Auto) [place] % (Auto) Eos % (Auto) Lymph # (Auto) [place] # (Auto) Eos # (Auto) Seg Neutrophils % Lymphocytes % (Manual) Monocytes % (Manual) Seg Neutrophils # Seg Neutrophils # Man Lymphocytes # (Manual) Monocytes # (Manual) D-Dimer Heparin Anti-Xa Level ABG pH POC ABG pCO2 POC ABG pO2 ABG pO2 ABG HCO3 ABG O2 Saturation ABG Base Excess ABG Hemoglobin ABG Oxyhemoglobin ABG Sodium ABG Potassium ABG Chloride ABG Glucose VBG pH Oxyhemoglobin Carboxyhemoglobin Sodium 149 H Potassium 3.2 L Chloride Carbon Dioxide 37 H BUN 40 H Creatinine 2.0 H Glucose 124 H POC Glucose 128 H 113 H Lactic Acid Calcium Phosphorus Magnesium Total Bilirubin AST ALT Ammonia Lactate Dehydrogenase Total Creatine Kinase CK-MB (CK-2) Troponin T NT-Pro-B Natriuret Pep Total Protein Albumin Triglycerides TSH Arterial Blood Glucose Arterial Blood Ionized Calcium Urine pH Urine WBC (Auto) Urine Creatinine 10/15/20 10/15/20 10/15/20 04:22 11:39 17:36 WBC RBC Hgb Hct RDW Lymph % (Auto) [place] % (Auto) Eos % (Auto) Lymph # (Auto) [place] # (Auto) Eos # (Auto) Seg Neutrophils % Lymphocytes % (Manual) Monocytes % (Manual) Seg Neutrophils # Seg Neutrophils # Man Lymphocytes # (Manual) Monocytes # (Manual) D-Dimer Heparin Anti-Xa Level ABG pH POC ABG pCO2 POC ABG pO2 ABG pO2 115.0 H ABG HCO3 38.1 H ABG O2 Saturation ABG Base Excess 11.3 H ABG Hemoglobin 11.0 L ABG Oxyhemoglobin ABG Sodium ABG Potassium ABG Chloride ABG Glucose VBG pH Oxyhemoglobin Carboxyhemoglobin Sodium Potassium Chloride Carbon Dioxide BUN Creatinine Glucose POC Glucose 123 H 118 H Lactic Acid Calcium Phosphorus Magnesium Total Bilirubin AST ALT Ammonia Lactate Dehydrogenase Total Creatine Kinase CK-MB (CK-2) Troponin T NT-Pro-B Natriuret Pep Total Protein Albumin Triglycerides TSH Arterial Blood Glucose Arterial Blood Ionized Calcium Urine pH Urine WBC (Auto) Urine Creatinine 10/15/20 10/16/20 10/16/20 23:18 03:13 05:10 WBC RBC Hgb Hct RDW Lymph % (Auto) [place] % (Auto) Eos % (Auto) Lymph # (Auto) [place] # (Auto) Eos # (Auto) Seg Neutrophils % Lymphocytes % (Manual) Monocytes % (Manual) Seg Neutrophils # Seg Neutrophils # Man Lymphocytes # (Manual) Monocytes # (Manual) D-Dimer Heparin Anti-Xa Level ABG pH POC ABG pCO2 POC ABG pO2 ABG pO2 104.5 H ABG HCO3 35.1 H ABG O2 Saturation ABG Base Excess 9.5 H ABG Hemoglobin 7.9 L ABG Oxyhemoglobin ABG Sodium ABG Potassium ABG Chloride ABG Glucose VBG pH Oxyhemoglobin Carboxyhemoglobin Sodium Potassium 3.3 L Chloride Carbon Dioxide 33 H BUN 37 H Creatinine 1.4 H Glucose 148 H POC Glucose 135 H Lactic Acid Calcium Phosphorus Magnesium 2.40 H Total Bilirubin AST ALT Ammonia Lactate Dehydrogenase Total Creatine Kinase CK-MB (CK-2) Troponin T NT-Pro-B Natriuret Pep Total Protein Albumin Triglycerides TSH Arterial Blood Glucose Arterial Blood Ionized Calcium Urine pH Urine WBC (Auto) Urine Creatinine 10/16/20 10/16/20 10/16/20 06:36 11:08 17:07 WBC RBC Hgb Hct RDW Lymph % (Auto) [place] % (Auto) Eos % (Auto) Lymph # (Auto) [place] # (Auto) Eos # (Auto) Seg Neutrophils % Lymphocytes % (Manual) Monocytes % (Manual) Seg Neutrophils # Seg Neutrophils # Man Lymphocytes # (Manual) Monocytes # (Manual) D-Dimer Heparin Anti-Xa Level ABG pH POC ABG pCO2 POC ABG pO2 ABG pO2 ABG HCO3 ABG O2 Saturation ABG Base Excess ABG Hemoglobin ABG Oxyhemoglobin ABG Sodium ABG Potassium ABG Chloride ABG Glucose VBG pH Oxyhemoglobin Carboxyhemoglobin Sodium Potassium Chloride Carbon Dioxide BUN Creatinine Glucose POC Glucose 150 H 111 H 132 H Lactic Acid Calcium Phosphorus Magnesium Total Bilirubin AST ALT Ammonia Lactate Dehydrogenase Total Creatine Kinase CK-MB (CK-2) Troponin T NT-Pro-B Natriuret Pep Total Protein Albumin Triglycerides TSH Arterial Blood Glucose Arterial Blood Ionized Calcium Urine pH Urine WBC (Auto) Urine Creatinine 10/16/20 10/17/20 10/17/20 23:38 03:32 03:32 WBC RBC Hgb Hct RDW Lymph % (Auto) [place] % (Auto) Eos % (Auto) Lymph # (Auto) [place] # (Auto) Eos # (Auto) Seg Neutrophils % Lymphocytes % (Manual) Monocytes % (Manual) Seg Neutrophils # Seg Neutrophils # Man Lymphocytes # (Manual) Monocytes # (Manual) D-Dimer Heparin Anti-Xa Level ABG pH POC ABG pCO2 POC ABG pO2 ABG pO2 ABG HCO3 ABG O2 Saturation ABG Base Excess ABG Hemoglobin ABG Oxyhemoglobin ABG Sodium ABG Potassium ABG Chloride ABG Glucose VBG pH Oxyhemoglobin Carboxyhemoglobin Sodium 146 H Potassium Chloride Carbon Dioxide 32 H BUN 57 H Creatinine 2.4 H D Glucose 124 H POC Glucose 117 H Lactic Acid Calcium Phosphorus 5.20 H D Magnesium Total Bilirubin AST ALT Ammonia Lactate Dehydrogenase Total Creatine Kinase CK-MB (CK-2) Troponin T NT-Pro-B Natriuret Pep Total Protein Albumin Triglycerides TSH Arterial Blood Glucose Arterial Blood Ionized Calcium Urine pH Urine WBC (Auto) Urine Creatinine 10/17/20 10/17/20 10/18/20 05:10 17:33 00:13 WBC RBC Hgb Hct RDW Lymph % (Auto) [place] % (Auto) Eos % (Auto) Lymph # (Auto) [place] # (Auto) Eos # (Auto) Seg Neutrophils % Lymphocytes % (Manual) Monocytes % (Manual) Seg Neutrophils # Seg Neutrophils # Man Lymphocytes # (Manual) Monocytes # (Manual) D-Dimer Heparin Anti-Xa Level ABG pH POC ABG pCO2 POC ABG pO2 ABG pO2 ABG HCO3 ABG O2 Saturation ABG Base Excess ABG Hemoglobin ABG Oxyhemoglobin ABG Sodium ABG Potassium ABG Chloride ABG Glucose VBG pH Oxyhemoglobin Carboxyhemoglobin Sodium Potassium Chloride Carbon Dioxide BUN Creatinine Glucose POC Glucose 122 H 121 H 23 L Lactic Acid Calcium Phosphorus Magnesium Total Bilirubin AST ALT Ammonia Lactate Dehydrogenase Total Creatine Kinase CK-MB (CK-2) Troponin T NT-Pro-B Natriuret Pep Total Protein Albumin Triglycerides TSH Arterial Blood Glucose Arterial Blood Ionized Calcium Urine pH Urine WBC (Auto) Urine Creatinine 10/18/20 10/18/20 10/18/20 00:16 03:27 03:27 WBC RBC Hgb 11.7 L Hct RDW Lymph % (Auto) [place] % (Auto) Eos % (Auto) Lymph # (Auto) [place] # (Auto) Eos # (Auto) Seg Neutrophils % Lymphocytes % (Manual) Monocytes % (Manual) Seg Neutrophils # Seg Neutrophils # Man Lymphocytes # (Manual) Monocytes # (Manual) D-Dimer Heparin Anti-Xa Level ABG pH POC ABG pCO2 POC ABG pO2 ABG pO2 ABG HCO3 ABG O2 Saturation ABG Base Excess ABG Hemoglobin ABG Oxyhemoglobin ABG Sodium ABG Potassium ABG Chloride ABG Glucose VBG pH Oxyhemoglobin Carboxyhemoglobin Sodium Potassium Chloride 97.6 L Carbon Dioxide BUN 90 H Creatinine 3.3 H Glucose 146 H POC Glucose 134 H Lactic Acid Calcium Phosphorus Magnesium Total Bilirubin 1.70 H AST ALT Ammonia Lactate Dehydrogenase Total Creatine Kinase CK-MB (CK-2) Troponin T NT-Pro-B Natriuret Pep Total Protein Albumin 3.1 L Triglycerides TSH Arterial Blood Glucose Arterial Blood Ionized Calcium Urine pH Urine WBC (Auto) Urine Creatinine 10/18/20 10/18/20 10/18/20 05:09 11:19 17:15 WBC RBC Hgb Hct RDW Lymph % (Auto) [place] % (Auto) Eos % (Auto) Lymph # (Auto) [place] # (Auto) Eos # (Auto) Seg Neutrophils % Lymphocytes % (Manual) Monocytes % (Manual) Seg Neutrophils # Seg Neutrophils # Man Lymphocytes # (Manual) Monocytes # (Manual) D-Dimer Heparin Anti-Xa Level ABG pH POC ABG pCO2 POC ABG pO2 ABG pO2 ABG HCO3 ABG O2 Saturation ABG Base Excess ABG Hemoglobin ABG Oxyhemoglobin ABG Sodium ABG Potassium ABG Chloride ABG Glucose VBG pH Oxyhemoglobin Carboxyhemoglobin Sodium Potassium Chloride Carbon Dioxide BUN Creatinine Glucose POC Glucose 144 H 145 H 151 H Lactic Acid Calcium Phosphorus Magnesium Total Bilirubin AST ALT Ammonia Lactate Dehydrogenase Total Creatine Kinase CK-MB (CK-2) Troponin T NT-Pro-B Natriuret Pep Total Protein Albumin Triglycerides TSH Arterial Blood Glucose Arterial Blood Ionized Calcium Urine pH Urine WBC (Auto) Urine Creatinine 10/18/20 10/18/20 10/19/20 23:16 Unknown 04:55 WBC RBC Hgb Hct RDW Lymph % (Auto) [place] % (Auto) Eos % (Auto) Lymph # (Auto) [place] # (Auto) Eos # (Auto) Seg Neutrophils % Lymphocytes % (Manual) Monocytes % (Manual) Seg Neutrophils # Seg Neutrophils # Man Lymphocytes # (Manual) Monocytes # (Manual) D-Dimer Heparin Anti-Xa Level ABG pH POC ABG pCO2 POC ABG pO2 ABG pO2 ABG HCO3 ABG O2 Saturation ABG Base Excess ABG Hemoglobin ABG Oxyhemoglobin ABG Sodium ABG Potassium ABG Chloride ABG Glucose VBG pH Oxyhemoglobin Carboxyhemoglobin Sodium Potassium Chloride Carbon Dioxide BUN 104 H Creatinine 3.1 H Glucose 139 H POC Glucose 123 H Lactic Acid Calcium Phosphorus Magnesium Total Bilirubin AST ALT Ammonia Lactate Dehydrogenase Total Creatine Kinase CK-MB (CK-2) Troponin T NT-Pro-B Natriuret Pep Total Protein Albumin Triglycerides TSH Arterial Blood Glucose Arterial Blood Ionized Calcium Urine pH Urine WBC (Auto) 115.0 H Urine Creatinine 10/19/20 10/19/20 10/19/20 04:55 11:35 13:14 WBC 15.1 H RBC Hgb 11.1 L Hct 34.4 L RDW Lymph % (Auto) 4.2 L [place] % (Auto) 11.9 H Eos % (Auto) Lymph # (Auto) 0.6 L [place] # (Auto) 1.8 H Eos # (Auto) Seg Neutrophils % 82.0 H Lymphocytes % (Manual) Monocytes % (Manual) Seg Neutrophils # 12.4 H Seg Neutrophils # Man Lymphocytes # (Manual) Monocytes # (Manual) D-Dimer Heparin Anti-Xa Level ABG pH POC ABG pCO2 POC ABG pO2 ABG pO2 ABG HCO3 ABG O2 Saturation ABG Base Excess ABG Hemoglobin ABG Oxyhemoglobin ABG Sodium ABG Potassium ABG Chloride ABG Glucose VBG pH Oxyhemoglobin Carboxyhemoglobin Sodium Potassium Chloride Carbon Dioxide BUN Creatinine Glucose POC Glucose 136 H Lactic Acid Calcium Phosphorus Magnesium Total Bilirubin AST ALT Ammonia Lactate Dehydrogenase Total Creatine Kinase CK-MB (CK-2) Troponin T NT-Pro-B Natriuret Pep Total Protein Albumin Triglycerides TSH Arterial Blood Glucose Arterial Blood Ionized Calcium Urine pH Urine WBC (Auto) Urine Creatinine 93.7 H 10/19/20 10/19/20 10/20/20 17:53 23:39 04:30 WBC RBC Hgb Hct RDW Lymph % (Auto) [place] % (Auto) Eos % (Auto) Lymph # (Auto) [place] # (Auto) Eos # (Auto) Seg Neutrophils % Lymphocytes % (Manual) Monocytes % (Manual) Seg Neutrophils # Seg Neutrophils # Man Lymphocytes # (Manual) Monocytes # (Manual) D-Dimer Heparin Anti-Xa Level ABG pH POC ABG pCO2 POC ABG pO2 ABG pO2 ABG HCO3 ABG O2 Saturation ABG Base Excess ABG Hemoglobin ABG Oxyhemoglobin ABG Sodium ABG Potassium ABG Chloride ABG Glucose VBG pH Oxyhemoglobin Carboxyhemoglobin Sodium Potassium Chloride Carbon Dioxide BUN 104 H Creatinine 2.8 H Glucose 151 H POC Glucose 137 H 133 H Lactic Acid Calcium Phosphorus Magnesium Total Bilirubin AST ALT Ammonia Lactate Dehydrogenase Total Creatine Kinase CK-MB (CK-2) Troponin T NT-Pro-B Natriuret Pep Total Protein Albumin Triglycerides TSH Arterial Blood Glucose Arterial Blood Ionized Calcium Urine pH Urine WBC (Auto) Urine Creatinine 10/20/20 10/20/20 10/20/20 04:30 05:38 11:34 WBC 17.9 H RBC Hgb 11.7 L Hct RDW Lymph % (Auto) [place] % (Auto) Eos % (Auto) Lymph # (Auto) [place] # (Auto) Eos # (Auto) Seg Neutrophils % Lymphocytes % (Manual) Monocytes % (Manual) Seg Neutrophils # Seg Neutrophils # Man Lymphocytes # (Manual) Monocytes # (Manual) D-Dimer Heparin Anti-Xa Level ABG pH POC ABG pCO2 POC ABG pO2 ABG pO2 ABG HCO3 ABG O2 Saturation ABG Base Excess ABG Hemoglobin ABG Oxyhemoglobin ABG Sodium ABG Potassium ABG Chloride ABG Glucose VBG pH Oxyhemoglobin Carboxyhemoglobin Sodium Potassium Chloride Carbon Dioxide BUN Creatinine Glucose POC Glucose 164 H 148 H Lactic Acid Calcium Phosphorus Magnesium Total Bilirubin AST ALT Ammonia Lactate Dehydrogenase Total Creatine Kinase CK-MB (CK-2) Troponin T NT-Pro-B Natriuret Pep Total Protein Albumin Triglycerides TSH Arterial Blood Glucose Arterial Blood Ionized Calcium Urine pH Urine WBC (Auto) Urine Creatinine 10/20/20 10/20/20 10/20/20 17:40 20:20 23:29 WBC RBC Hgb Hct RDW Lymph % (Auto) [place] % (Auto) Eos % (Auto) Lymph # (Auto) [place] # (Auto) Eos # (Auto) Seg Neutrophils % Lymphocytes % (Manual) Monocytes % (Manual) Seg Neutrophils # Seg Neutrophils # Man Lymphocytes # (Manual) Monocytes # (Manual) D-Dimer Heparin Anti-Xa Level ABG pH 7.292 L POC ABG pCO2 68.5 H POC ABG pO2 ABG pO2 ABG HCO3 ABG O2 Saturation ABG Base Excess ABG Hemoglobin 11.6 L ABG Oxyhemoglobin ABG Sodium ABG Potassium ABG Chloride ABG Glucose 145 H VBG pH Oxyhemoglobin Carboxyhemoglobin Sodium Potassium Chloride Carbon Dioxide BUN Creatinine Glucose POC Glucose 130 H 136 H Lactic Acid Calcium Phosphorus Magnesium Total Bilirubin AST ALT Ammonia Lactate Dehydrogenase Total Creatine Kinase CK-MB (CK-2) Troponin T NT-Pro-B Natriuret Pep Total Protein Albumin Triglycerides TSH Arterial Blood Glucose 145 H Arterial Blood Ionized Calcium Urine pH Urine WBC (Auto) Urine Creatinine 10/21/20 10/21/20 10/21/20 04:20 06:26 06:30 WBC RBC Hgb Hct RDW Lymph % (Auto) [place] % (Auto) Eos % (Auto) Lymph # (Auto) [place] # (Auto) Eos # (Auto) Seg Neutrophils % Lymphocytes % (Manual) Monocytes % (Manual) Seg Neutrophils # Seg Neutrophils # Man Lymphocytes # (Manual) Monocytes # (Manual) D-Dimer Heparin Anti-Xa Level ABG pH 7.262 L POC ABG pCO2 72.4 H POC ABG pO2 81.6 L ABG pO2 ABG HCO3 ABG O2 Saturation ABG Base Excess ABG Hemoglobin 11.6 L ABG Oxyhemoglobin ABG Sodium ABG Potassium ABG Chloride ABG Glucose 140 H VBG pH Oxyhemoglobin Carboxyhemoglobin Sodium Potassium Chloride Carbon Dioxide 33 H BUN 104 H Creatinine 2.9 H Glucose 153 H POC Glucose 128 H Lactic Acid Calcium Phosphorus Magnesium Total Bilirubin AST ALT Ammonia Lactate Dehydrogenase Total Creatine Kinase CK-MB (CK-2) Troponin T NT-Pro-B Natriuret Pep Total Protein Albumin Triglycerides TSH Arterial Blood Glucose 140 H Arterial Blood Ionized Calcium Urine pH Urine WBC (Auto) Urine Creatinine 10/21/20 10/21/20 10/21/20 06:30 11:24 17:21 WBC 13.3 H RBC Hgb 10.7 L Hct 32.7 L RDW Lymph % (Auto) [place] % (Auto) Eos % (Auto) Lymph # (Auto) [place] # (Auto) Eos # (Auto) Seg Neutrophils % Lymphocytes % (Manual) Monocytes % (Manual) Seg Neutrophils # Seg Neutrophils # Man Lymphocytes # (Manual) Monocytes # (Manual) D-Dimer Heparin Anti-Xa Level ABG pH POC ABG pCO2 POC ABG pO2 ABG pO2 ABG HCO3 ABG O2 Saturation ABG Base Excess ABG Hemoglobin ABG Oxyhemoglobin ABG Sodium ABG Potassium ABG Chloride ABG Glucose VBG pH Oxyhemoglobin Carboxyhemoglobin Sodium Potassium Chloride Carbon Dioxide BUN Creatinine Glucose POC Glucose 178 H 138 H Lactic Acid Calcium Phosphorus Magnesium Total Bilirubin AST ALT Ammonia Lactate Dehydrogenase Total Creatine Kinase CK-MB (CK-2) Troponin T NT-Pro-B Natriuret Pep Total Protein Albumin Triglycerides TSH Arterial Blood Glucose Arterial Blood Ionized Calcium Urine pH Urine WBC (Auto) Urine Creatinine 10/22/20 10/22/20 10/22/20 00:05 04:30 06:15 WBC RBC Hgb Hct RDW Lymph % (Auto) [place] % (Auto) Eos % (Auto) Lymph # (Auto) [place] # (Auto) Eos # (Auto) Seg Neutrophils % Lymphocytes % (Manual) Monocytes % (Manual) Seg Neutrophils # Seg Neutrophils # Man Lymphocytes # (Manual) Monocytes # (Manual) D-Dimer Heparin Anti-Xa Level ABG pH 7.225 L POC ABG pCO2 76.6 H POC ABG pO2 ABG pO2 ABG HCO3 ABG O2 Saturation ABG Base Excess ABG Hemoglobin 11.1 L ABG Oxyhemoglobin ABG Sodium ABG Potassium ABG Chloride ABG Glucose 151 H VBG pH Oxyhemoglobin Carboxyhemoglobin Sodium Potassium Chloride Carbon Dioxide 32 H BUN 103 H Creatinine 2.7 H Glucose 151 H POC Glucose 135 H Lactic Acid Calcium Phosphorus Magnesium Total Bilirubin AST ALT Ammonia Lactate Dehydrogenase Total Creatine Kinase CK-MB (CK-2) Troponin T NT-Pro-B Natriuret Pep Total Protein Albumin Triglycerides TSH Arterial Blood Glucose 151 H Arterial Blood Ionized Calcium Urine pH Urine WBC (Auto) Urine Creatinine 10/22/20 10/22/20 10/22/20 06:18 11:34 11:44 WBC RBC Hgb Hct RDW Lymph % (Auto) [place] % (Auto) Eos % (Auto) Lymph # (Auto) [place] # (Auto) Eos # (Auto) Seg Neutrophils % Lymphocytes % (Manual) Monocytes % (Manual) Seg Neutrophils # Seg Neutrophils # Man Lymphocytes # (Manual) Monocytes # (Manual) D-Dimer Heparin Anti-Xa Level ABG pH 7.278 L POC ABG pCO2 67.8 H POC ABG pO2 ABG pO2 ABG HCO3 ABG O2 Saturation ABG Base Excess ABG Hemoglobin 10.2 L ABG Oxyhemoglobin ABG Sodium ABG Potassium ABG Chloride ABG Glucose 172 H VBG pH Oxyhemoglobin Carboxyhemoglobin Sodium Potassium Chloride Carbon Dioxide BUN Creatinine Glucose POC Glucose 137 H 147 H Lactic Acid Calcium Phosphorus Magnesium Total Bilirubin AST ALT Ammonia Lactate Dehydrogenase Total Creatine Kinase CK-MB (CK-2) Troponin T NT-Pro-B Natriuret Pep Total Protein Albumin Triglycerides TSH Arterial Blood Glucose 172 H Arterial Blood Ionized Calcium Urine pH Urine WBC (Auto) Urine Creatinine 10/22/20 10/22/20 10/23/20 17:40 23:55 05:11 WBC RBC Hgb Hct RDW Lymph % (Auto) [place] % (Auto) Eos % (Auto) Lymph # (Auto) [place] # (Auto) Eos # (Auto) Seg Neutrophils % Lymphocytes % (Manual) Monocytes % (Manual) Seg Neutrophils # Seg Neutrophils # Man Lymphocytes # (Manual) Monocytes # (Manual) D-Dimer Heparin Anti-Xa Level ABG pH POC ABG pCO2 63.6 H POC ABG pO2 81.2 L ABG pO2 ABG HCO3 ABG O2 Saturation ABG Base Excess ABG Hemoglobin 10.6 L ABG Oxyhemoglobin ABG Sodium ABG Potassium ABG Chloride 109.0 H ABG Glucose 149 H VBG pH Oxyhemoglobin Carboxyhemoglobin Sodium Potassium Chloride Carbon Dioxide BUN Creatinine Glucose POC Glucose 141 H 139 H Lactic Acid Calcium Phosphorus Magnesium Total Bilirubin AST ALT Ammonia Lactate Dehydrogenase Total Creatine Kinase CK-MB (CK-2) Troponin T NT-Pro-B Natriuret Pep Total Protein Albumin Triglycerides TSH Arterial Blood Glucose 149 H Arterial Blood Ionized Calcium Urine pH Urine WBC (Auto) Urine Creatinine 10/23/20 10/23/20 10/23/20 05:39 06:00 11:32 WBC RBC Hgb Hct RDW Lymph % (Auto) [place] % (Auto) Eos % (Auto) Lymph # (Auto) [place] # (Auto) Eos # (Auto) Seg Neutrophils % Lymphocytes % (Manual) Monocytes % (Manual) Seg Neutrophils # Seg Neutrophils # Man Lymphocytes # (Manual) Monocytes # (Manual) D-Dimer Heparin Anti-Xa Level ABG pH POC ABG pCO2 POC ABG pO2 ABG pO2 ABG HCO3 ABG O2 Saturation ABG Base Excess ABG Hemoglobin ABG Oxyhemoglobin ABG Sodium ABG Potassium ABG Chloride ABG Glucose VBG pH Oxyhemoglobin Carboxyhemoglobin Sodium 146 H Potassium Chloride Carbon Dioxide 35 H BUN 92 H Creatinine 2.0 H Glucose 144 H POC Glucose 139 H 176 H Lactic Acid Calcium Phosphorus Magnesium Total Bilirubin AST ALT Ammonia Lactate Dehydrogenase Total Creatine Kinase CK-MB (CK-2) Troponin T NT-Pro-B Natriuret Pep Total Protein Albumin Triglycerides TSH Arterial Blood Glucose Arterial Blood Ionized Calcium Urine pH Urine WBC (Auto) Urine Creatinine 10/23/20 10/23/20 10/24/20 11:34 17:55 05:33 WBC RBC Hgb Hct RDW Lymph % (Auto) [place] % (Auto) Eos % (Auto) Lymph # (Auto) [place] # (Auto) Eos # (Auto) Seg Neutrophils % Lymphocytes % (Manual) Monocytes % (Manual) Seg Neutrophils # Seg Neutrophils # Man Lymphocytes # (Manual) Monocytes # (Manual) D-Dimer Heparin Anti-Xa Level ABG pH POC ABG pCO2 POC ABG pO2 ABG pO2 ABG HCO3 ABG O2 Saturation ABG Base Excess ABG Hemoglobin ABG Oxyhemoglobin ABG Sodium ABG Potassium ABG Chloride ABG Glucose VBG pH Oxyhemoglobin Carboxyhemoglobin Sodium 147 H Potassium Chloride Carbon Dioxide 32 H BUN 76 H Creatinine 1.7 H Glucose 172 H POC Glucose 173 H 135 H Lactic Acid Calcium Phosphorus Magnesium Total Bilirubin AST ALT Ammonia Lactate Dehydrogenase Total Creatine Kinase CK-MB (CK-2) Troponin T NT-Pro-B Natriuret Pep Total Protein Albumin Triglycerides TSH Arterial Blood Glucose Arterial Blood Ionized Calcium Urine pH Urine WBC (Auto) Urine Creatinine 10/24/20 10/24/20 10/24/20 05:41 12:09 18:09 WBC RBC Hgb Hct RDW Lymph % (Auto) [place] % (Auto) Eos % (Auto) Lymph # (Auto) [place] # (Auto) Eos # (Auto) Seg Neutrophils % Lymphocytes % (Manual) Monocytes % (Manual) Seg Neutrophils # Seg Neutrophils # Man Lymphocytes # (Manual) Monocytes # (Manual) D-Dimer Heparin Anti-Xa Level ABG pH POC ABG pCO2 POC ABG pO2 ABG pO2 ABG HCO3 ABG O2 Saturation ABG Base Excess ABG Hemoglobin ABG Oxyhemoglobin ABG Sodium ABG Potassium ABG Chloride ABG Glucose VBG pH Oxyhemoglobin Carboxyhemoglobin Sodium Potassium Chloride Carbon Dioxide BUN Creatinine Glucose POC Glucose 156 H 154 H 132 H Lactic Acid Calcium Phosphorus Magnesium Total Bilirubin AST ALT Ammonia Lactate Dehydrogenase Total Creatine Kinase CK-MB (CK-2) Troponin T NT-Pro-B Natriuret Pep Total Protein Albumin Triglycerides TSH Arterial Blood Glucose Arterial Blood Ionized Calcium Urine pH Urine WBC (Auto) Urine Creatinine 10/24/20 10/25/20 10/25/20 23:39 05:29 08:55 WBC RBC Hgb Hct RDW Lymph % (Auto) [place] % (Auto) Eos % (Auto) Lymph # (Auto) [place] # (Auto) Eos # (Auto) Seg Neutrophils % Lymphocytes % (Manual) Monocytes % (Manual) Seg Neutrophils # Seg Neutrophils # Man Lymphocytes # (Manual) Monocytes # (Manual) D-Dimer Heparin Anti-Xa Level ABG pH POC ABG pCO2 POC ABG pO2 ABG pO2 ABG HCO3 ABG O2 Saturation ABG Base Excess ABG Hemoglobin ABG Oxyhemoglobin ABG Sodium ABG Potassium ABG Chloride ABG Glucose VBG pH Oxyhemoglobin Carboxyhemoglobin Sodium 150 H Potassium Chloride 108.3 H Carbon Dioxide 32 H BUN 57 H Creatinine 1.5 H Glucose 142 H POC Glucose 131 H 142 H Lactic Acid Calcium Phosphorus Magnesium Total Bilirubin AST ALT Ammonia Lactate Dehydrogenase Total Creatine Kinase CK-MB (CK-2) Troponin T NT-Pro-B Natriuret Pep Total Protein Albumin Triglycerides TSH Arterial Blood Glucose Arterial Blood Ionized Calcium Urine pH Urine WBC (Auto) Urine Creatinine 10/25/20 10/25/20 10/25/20 08:55 11:08 18:10 WBC 14.3 H RBC 3.57 L Hgb 10.3 L Hct 31.6 L RDW Lymph % (Auto) [place] % (Auto) Eos % (Auto) Lymph # (Auto) [place] # (Auto) Eos # (Auto) Seg Neutrophils % Lymphocytes % (Manual) Monocytes % (Manual) Seg Neutrophils # Seg Neutrophils # Man Lymphocytes # (Manual) Monocytes # (Manual) D-Dimer Heparin Anti-Xa Level ABG pH POC ABG pCO2 52.3 H POC ABG pO2 ABG pO2 ABG HCO3 ABG O2 Saturation ABG Base Excess ABG Hemoglobin 11.2 L ABG Oxyhemoglobin ABG Sodium ABG Potassium ABG Chloride 108.0 H ABG Glucose 167 H VBG pH Oxyhemoglobin Carboxyhemoglobin Sodium Potassium Chloride Carbon Dioxide BUN Creatinine Glucose POC Glucose 157 H Lactic Acid Calcium Phosphorus Magnesium Total Bilirubin AST ALT Ammonia Lactate Dehydrogenase Total Creatine Kinase CK-MB (CK-2) Troponin T NT-Pro-B Natriuret Pep Total Protein Albumin Triglycerides TSH Arterial Blood Glucose 167 H Arterial Blood Ionized Calcium Urine pH Urine WBC (Auto) Urine Creatinine 10/25/20 10/26/20 10/26/20 18:20 00:20 06:08 WBC RBC Hgb Hct RDW Lymph % (Auto) [place] % (Auto) Eos % (Auto) Lymph # (Auto) [place] # (Auto) Eos # (Auto) Seg Neutrophils % Lymphocytes % (Manual) Monocytes % (Manual) Seg Neutrophils # Seg Neutrophils # Man Lymphocytes # (Manual) Monocytes # (Manual) D-Dimer Heparin Anti-Xa Level ABG pH POC ABG pCO2 POC ABG pO2 ABG pO2 ABG HCO3 ABG O2 Saturation ABG Base Excess ABG Hemoglobin ABG Oxyhemoglobin ABG Sodium ABG Potassium ABG Chloride ABG Glucose VBG pH Oxyhemoglobin Carboxyhemoglobin Sodium Potassium Chloride Carbon Dioxide BUN Creatinine Glucose POC Glucose 127 H 108 H 119 H Lactic Acid Calcium Phosphorus Magnesium Total Bilirubin AST ALT Ammonia Lactate Dehydrogenase Total Creatine Kinase CK-MB (CK-2) Troponin T NT-Pro-B Natriuret Pep Total Protein Albumin Triglycerides TSH Arterial Blood Glucose Arterial Blood Ionized Calcium Urine pH Urine WBC (Auto) Urine Creatinine 10/26/20 10/26/20 10/26/20 07:38 07:38 11:28 WBC 13.5 H RBC 3.37 L Hgb 9.8 L Hct 30.0 L RDW Lymph % (Auto) [place] % (Auto) Eos % (Auto) Lymph # (Auto) [place] # (Auto) Eos # (Auto) Seg Neutrophils % Lymphocytes % (Manual) Monocytes % (Manual) Seg Neutrophils # Seg Neutrophils # Man Lymphocytes # (Manual) Monocytes # (Manual) D-Dimer Heparin Anti-Xa Level ABG pH POC ABG pCO2 POC ABG pO2 ABG pO2 ABG HCO3 ABG O2 Saturation ABG Base Excess ABG Hemoglobin ABG Oxyhemoglobin ABG Sodium ABG Potassium ABG Chloride ABG Glucose VBG pH Oxyhemoglobin Carboxyhemoglobin Sodium 149 H Potassium Chloride 107.6 H Carbon Dioxide 34 H BUN 49 H Creatinine 1.4 H Glucose 137 H POC Glucose 148 H Lactic Acid Calcium Phosphorus Magnesium Total Bilirubin AST ALT Ammonia Lactate Dehydrogenase Total Creatine Kinase CK-MB (CK-2) Troponin T NT-Pro-B Natriuret Pep Total Protein Albumin Triglycerides TSH Arterial Blood Glucose Arterial Blood Ionized Calcium Urine pH Urine WBC (Auto) Urine Creatinine 10/26/20 10/26/20 10/27/20 18:17 23:37 05:08 WBC RBC Hgb Hct RDW Lymph % (Auto) [place] % (Auto) Eos % (Auto) Lymph # (Auto) [place] # (Auto) Eos # (Auto) Seg Neutrophils % Lymphocytes % (Manual) Monocytes % (Manual) Seg Neutrophils # Seg Neutrophils # Man Lymphocytes # (Manual) Monocytes # (Manual) D-Dimer Heparin Anti-Xa Level ABG pH POC ABG pCO2 POC ABG pO2 ABG pO2 ABG HCO3 ABG O2 Saturation ABG Base Excess ABG Hemoglobin ABG Oxyhemoglobin ABG Sodium ABG Potassium ABG Chloride ABG Glucose VBG pH Oxyhemoglobin Carboxyhemoglobin Sodium Potassium Chloride Carbon Dioxide BUN Creatinine Glucose POC Glucose 121 H 152 H 120 H Lactic Acid Calcium Phosphorus Magnesium Total Bilirubin AST ALT Ammonia Lactate Dehydrogenase Total Creatine Kinase CK-MB (CK-2) Troponin T NT-Pro-B Natriuret Pep Total Protein Albumin Triglycerides TSH Arterial Blood Glucose Arterial Blood Ionized Calcium Urine pH Urine WBC (Auto) Urine Creatinine 10/27/20 10/27/20 10/27/20 07:30 07:30 11:59 WBC RBC 3.46 L Hgb 10.2 L Hct 30.9 L RDW Lymph % (Auto) [place] % (Auto) Eos % (Auto) Lymph # (Auto) [place] # (Auto) Eos # (Auto) Seg Neutrophils % Lymphocytes % (Manual) Monocytes % (Manual) Seg Neutrophils # Seg Neutrophils # Man Lymphocytes # (Manual) Monocytes # (Manual) D-Dimer Heparin Anti-Xa Level ABG pH POC ABG pCO2 POC ABG pO2 ABG pO2 ABG HCO3 ABG O2 Saturation ABG Base Excess ABG Hemoglobin ABG Oxyhemoglobin ABG Sodium ABG Potassium ABG Chloride ABG Glucose VBG pH Oxyhemoglobin Carboxyhemoglobin Sodium 146 H Potassium Chloride Carbon Dioxide 34 H BUN 45 H Creatinine Glucose 131 H POC Glucose 143 H Lactic Acid Calcium Phosphorus Magnesium Total Bilirubin AST ALT Ammonia Lactate Dehydrogenase Total Creatine Kinase CK-MB (CK-2) Troponin T NT-Pro-B Natriuret Pep Total Protein Albumin Triglycerides TSH Arterial Blood Glucose Arterial Blood Ionized Calcium Urine pH Urine WBC (Auto) Urine Creatinine 10/27/20 10/27/20 10/28/20 18:52 23:03 07:00 WBC RBC Hgb Hct RDW Lymph % (Auto) [place] % (Auto) Eos % (Auto) Lymph # (Auto) [place] # (Auto) Eos # (Auto) Seg Neutrophils % Lymphocytes % (Manual) Monocytes % (Manual) Seg Neutrophils # Seg Neutrophils # Man Lymphocytes # (Manual) Monocytes # (Manual) D-Dimer Heparin Anti-Xa Level ABG pH POC ABG pCO2 POC ABG pO2 ABG pO2 ABG HCO3 ABG O2 Saturation ABG Base Excess ABG Hemoglobin ABG Oxyhemoglobin ABG Sodium ABG Potassium ABG Chloride ABG Glucose VBG pH Oxyhemoglobin Carboxyhemoglobin Sodium 147 H Potassium Chloride Carbon Dioxide 35 H BUN 39 H Creatinine Glucose 133 H POC Glucose 119 H 158 H Lactic Acid Calcium Phosphorus Magnesium Total Bilirubin AST ALT Ammonia Lactate Dehydrogenase Total Creatine Kinase CK-MB (CK-2) Troponin T NT-Pro-B Natriuret Pep Total Protein Albumin Triglycerides TSH Arterial Blood Glucose Arterial Blood Ionized Calcium Urine pH Urine WBC (Auto) Urine Creatinine 10/28/20 10/28/20 10/28/20 09:00 11:47 17:15 WBC 12.5 H RBC 3.58 L Hgb 10.5 L Hct 32.1 L RDW Lymph % (Auto) [place] % (Auto) Eos % (Auto) Lymph # (Auto) [place] # (Auto) Eos # (Auto) Seg Neutrophils % Lymphocytes % (Manual) Monocytes % (Manual) Seg Neutrophils # Seg Neutrophils # Man Lymphocytes # (Manual) Monocytes # (Manual) D-Dimer Heparin Anti-Xa Level ABG pH POC ABG pCO2 POC ABG pO2 ABG pO2 ABG HCO3 ABG O2 Saturation ABG Base Excess ABG Hemoglobin ABG Oxyhemoglobin ABG Sodium ABG Potassium ABG Chloride ABG Glucose VBG pH Oxyhemoglobin Carboxyhemoglobin Sodium Potassium Chloride Carbon Dioxide BUN Creatinine Glucose POC Glucose 129 H 109 H Lactic Acid Calcium Phosphorus Magnesium Total Bilirubin AST ALT Ammonia Lactate Dehydrogenase Total Creatine Kinase CK-MB (CK-2) Troponin T NT-Pro-B Natriuret Pep Total Protein Albumin Triglycerides TSH Arterial Blood Glucose Arterial Blood Ionized Calcium Urine pH Urine WBC (Auto) Urine Creatinine 10/28/20 10/29/20 10/29/20 23:31 04:23 04:23 WBC 13.6 H RBC 3.47 L Hgb 10.5 L Hct 30.7 L RDW 15.4 H Lymph % (Auto) [place] % (Auto) Eos % (Auto) Lymph # (Auto) [place] # (Auto) Eos # (Auto) Seg Neutrophils % Lymphocytes % (Manual) Monocytes % (Manual) Seg Neutrophils # Seg Neutrophils # Man Lymphocytes # (Manual) Monocytes # (Manual) D-Dimer Heparin Anti-Xa Level ABG pH POC ABG pCO2 POC ABG pO2 ABG pO2 ABG HCO3 ABG O2 Saturation ABG Base Excess ABG Hemoglobin ABG Oxyhemoglobin ABG Sodium ABG Potassium ABG Chloride ABG Glucose VBG pH Oxyhemoglobin Carboxyhemoglobin Sodium Potassium Chloride Carbon Dioxide 35 H BUN 34 H Creatinine Glucose 107 H POC Glucose 138 H Lactic Acid Calcium Phosphorus Magnesium Total Bilirubin AST ALT Ammonia Lactate Dehydrogenase Total Creatine Kinase CK-MB (CK-2) Troponin T NT-Pro-B Natriuret Pep Total Protein Albumin Triglycerides TSH Arterial Blood Glucose Arterial Blood Ionized Calcium Urine pH Urine WBC (Auto) Urine Creatinine 10/29/20 10/29/20 10/29/20 05:21 11:49 23:19 WBC RBC Hgb Hct RDW Lymph % (Auto) [place] % (Auto) Eos % (Auto) Lymph # (Auto) [place] # (Auto) Eos # (Auto) Seg Neutrophils % Lymphocytes % (Manual) Monocytes % (Manual) Seg Neutrophils # Seg Neutrophils # Man Lymphocytes # (Manual) Monocytes # (Manual) D-Dimer Heparin Anti-Xa Level ABG pH POC ABG pCO2 POC ABG pO2 ABG pO2 ABG HCO3 ABG O2 Saturation ABG Base Excess ABG Hemoglobin ABG Oxyhemoglobin ABG Sodium ABG Potassium ABG Chloride ABG Glucose VBG pH Oxyhemoglobin Carboxyhemoglobin Sodium Potassium Chloride Carbon Dioxide BUN Creatinine Glucose POC Glucose 115 H 124 H 129 H Lactic Acid Calcium Phosphorus Magnesium Total Bilirubin AST ALT Ammonia Lactate Dehydrogenase Total Creatine Kinase CK-MB (CK-2) Troponin T NT-Pro-B Natriuret Pep Total Protein Albumin Triglycerides TSH Arterial Blood Glucose Arterial Blood Ionized Calcium Urine pH Urine WBC (Auto) Urine Creatinine 10/30/20 10/30/20 10/30/20 04:59 05:10 11:52 WBC RBC Hgb Hct RDW Lymph % (Auto) [place] % (Auto) Eos % (Auto) Lymph # (Auto) [place] # (Auto) Eos # (Auto) Seg Neutrophils % Lymphocytes % (Manual) Monocytes % (Manual) Seg Neutrophils # Seg Neutrophils # Man Lymphocytes # (Manual) Monocytes # (Manual) D-Dimer Heparin Anti-Xa Level ABG pH POC ABG pCO2 POC ABG pO2 ABG pO2 ABG HCO3 ABG O2 Saturation ABG Base Excess ABG Hemoglobin ABG Oxyhemoglobin ABG Sodium ABG Potassium ABG Chloride ABG Glucose VBG pH Oxyhemoglobin Carboxyhemoglobin Sodium Potassium Chloride Carbon Dioxide 34 H BUN 33 H Creatinine Glucose 128 H POC Glucose 126 H 132 H Lactic Acid Calcium Phosphorus Magnesium Total Bilirubin AST ALT Ammonia Lactate Dehydrogenase Total Creatine Kinase CK-MB (CK-2) Troponin T NT-Pro-B Natriuret Pep Total Protein Albumin Triglycerides TSH Arterial Blood Glucose Arterial Blood Ionized Calcium Urine pH Urine WBC (Auto) Urine Creatinine 10/30/20 10/30/20 10/31/20 16:59 23:19 04:00 WBC RBC Hgb Hct RDW Lymph % (Auto) [place] % (Auto) Eos % (Auto) Lymph # (Auto) [place] # (Auto) Eos # (Auto) Seg Neutrophils % Lymphocytes % (Manual) Monocytes % (Manual) Seg Neutrophils # Seg Neutrophils # Man Lymphocytes # (Manual) Monocytes # (Manual) D-Dimer Heparin Anti-Xa Level ABG pH POC ABG pCO2 POC ABG pO2 ABG pO2 ABG HCO3 ABG O2 Saturation ABG Base Excess ABG Hemoglobin ABG Oxyhemoglobin ABG Sodium ABG Potassium ABG Chloride ABG Glucose VBG pH Oxyhemoglobin Carboxyhemoglobin Sodium Potassium Chloride Carbon Dioxide 38 H BUN 32 H Creatinine Glucose 121 H POC Glucose 118 H 138 H Lactic Acid Calcium Phosphorus Magnesium Total Bilirubin AST ALT Ammonia Lactate Dehydrogenase Total Creatine Kinase CK-MB (CK-2) Troponin T NT-Pro-B Natriuret Pep Total Protein Albumin Triglycerides TSH Arterial Blood Glucose Arterial Blood Ionized Calcium Urine pH Urine WBC (Auto) Urine Creatinine 10/31/20 10/31/20 10/31/20 05:13 11:09 16:17 WBC RBC Hgb Hct RDW Lymph % (Auto) [place] % (Auto) Eos % (Auto) Lymph # (Auto) [place] # (Auto) Eos # (Auto) Seg Neutrophils % Lymphocytes % (Manual) Monocytes % (Manual) Seg Neutrophils # Seg Neutrophils # Man Lymphocytes # (Manual) Monocytes # (Manual) D-Dimer Heparin Anti-Xa Level ABG pH POC ABG pCO2 71.1 H POC ABG pO2 67.4 L ABG pO2 ABG HCO3 ABG O2 Saturation ABG Base Excess ABG Hemoglobin 10.9 L ABG Oxyhemoglobin 90.7 L ABG Sodium ABG Potassium ABG Chloride ABG Glucose 134 H VBG pH Oxyhemoglobin Carboxyhemoglobin Sodium Potassium Chloride Carbon Dioxide BUN Creatinine Glucose POC Glucose 110 H 138 H Lactic Acid Calcium Phosphorus Magnesium Total Bilirubin AST ALT Ammonia Lactate Dehydrogenase Total Creatine Kinase CK-MB (CK-2) Troponin T NT-Pro-B Natriuret Pep Total Protein Albumin Triglycerides TSH Arterial Blood Glucose 134 H Arterial Blood Ionized Calcium Urine pH Urine WBC (Auto) Urine Creatinine 10/31/20 10/31/20 11/01/20 18:16 23:56 04:09 WBC 11.3 H RBC 3.05 L Hgb 9.0 L Hct 27.3 L RDW Lymph % (Auto) [place] % (Auto) Eos % (Auto) Lymph # (Auto) [place] # (Auto) Eos # (Auto) Seg Neutrophils % Lymphocytes % (Manual) Monocytes % (Manual) Seg Neutrophils # Seg Neutrophils # Man Lymphocytes # (Manual) Monocytes # (Manual) D-Dimer Heparin Anti-Xa Level ABG pH POC ABG pCO2 POC ABG pO2 ABG pO2 ABG HCO3 ABG O2 Saturation ABG Base Excess ABG Hemoglobin ABG Oxyhemoglobin ABG Sodium ABG Potassium ABG Chloride ABG Glucose VBG pH Oxyhemoglobin Carboxyhemoglobin Sodium Potassium Chloride Carbon Dioxide BUN Creatinine Glucose POC Glucose 135 H 122 H Lactic Acid Calcium Phosphorus Magnesium Total Bilirubin AST ALT Ammonia Lactate Dehydrogenase Total Creatine Kinase CK-MB (CK-2) Troponin T NT-Pro-B Natriuret Pep Total Protein Albumin Triglycerides TSH Arterial Blood Glucose Arterial Blood Ionized Calcium Urine pH Urine WBC (Auto) Urine Creatinine 11/01/20 11/01/20 11/01/20 05:10 11:51 17:17 WBC RBC Hgb Hct RDW Lymph % (Auto) [place] % (Auto) Eos % (Auto) Lymph # (Auto) [place] # (Auto) Eos # (Auto) Seg Neutrophils % Lymphocytes % (Manual) Monocytes % (Manual) Seg Neutrophils # Seg Neutrophils # Man Lymphocytes # (Manual) Monocytes # (Manual) D-Dimer Heparin Anti-Xa Level ABG pH POC ABG pCO2 POC ABG pO2 ABG pO2 ABG HCO3 ABG O2 Saturation ABG Base Excess ABG Hemoglobin ABG Oxyhemoglobin ABG Sodium ABG Potassium ABG Chloride ABG Glucose VBG pH Oxyhemoglobin Carboxyhemoglobin Sodium Potassium Chloride Carbon Dioxide BUN Creatinine Glucose POC Glucose 123 H 123 H 120 H Lactic Acid Calcium Phosphorus Magnesium Total Bilirubin AST ALT Ammonia Lactate Dehydrogenase Total Creatine Kinase CK-MB (CK-2) Troponin T NT-Pro-B Natriuret Pep Total Protein Albumin Triglycerides TSH Arterial Blood Glucose Arterial Blood Ionized Calcium Urine pH Urine WBC (Auto) Urine Creatinine 11/02/20 11/02/20 11/02/20 03:14 05:37 05:37 WBC RBC Hgb 9.8 L Hct 29.5 L RDW Lymph % (Auto) [place] % (Auto) Eos % (Auto) Lymph # (Auto) [place] # (Auto) Eos # (Auto) Seg Neutrophils % Lymphocytes % (Manual) Monocytes % (Manual) Seg Neutrophils # Seg Neutrophils # Man Lymphocytes # (Manual) Monocytes # (Manual) D-Dimer Heparin Anti-Xa Level ABG pH POC ABG pCO2 58.9 H POC ABG pO2 79.9 L ABG pO2 ABG HCO3 ABG O2 Saturation ABG Base Excess ABG Hemoglobin 10.6 L ABG Oxyhemoglobin ABG Sodium ABG Potassium ABG Chloride ABG Glucose 110 H VBG pH Oxyhemoglobin Carboxyhemoglobin Sodium Potassium Chloride Carbon Dioxide 37 H BUN 28 H Creatinine Glucose 106 H POC Glucose Lactic Acid Calcium Phosphorus Magnesium Total Bilirubin AST ALT Ammonia Lactate Dehydrogenase Total Creatine Kinase CK-MB (CK-2) Troponin T NT-Pro-B Natriuret Pep Total Protein Albumin Triglycerides TSH Arterial Blood Glucose 110 H Arterial Blood Ionized Calcium Urine pH Urine WBC (Auto) Urine Creatinine 11/02/20 11/03/20 11/03/20 23:29 04:45 04:45 WBC 11.8 H RBC 3.07 L Hgb 9.0 L Hct 27.2 L RDW Lymph % (Auto) 11.4 L [place] % (Auto) 9.5 H Eos % (Auto) Lymph # (Auto) [place] # (Auto) 1.1 H Eos # (Auto) Seg Neutrophils % 75.9 H Lymphocytes % (Manual) Monocytes % (Manual) Seg Neutrophils # 9.0 H Seg Neutrophils # Man Lymphocytes # (Manual) Monocytes # (Manual) D-Dimer Heparin Anti-Xa Level ABG pH POC ABG pCO2 POC ABG pO2 ABG pO2 ABG HCO3 ABG O2 Saturation ABG Base Excess ABG Hemoglobin ABG Oxyhemoglobin ABG Sodium ABG Potassium ABG Chloride ABG Glucose VBG pH Oxyhemoglobin Carboxyhemoglobin Sodium 146 H Potassium Chloride Carbon Dioxide 39 H BUN 26 H Creatinine Glucose POC Glucose 129 H Lactic Acid Calcium Phosphorus Magnesium Total Bilirubin AST ALT Ammonia Lactate Dehydrogenase Total Creatine Kinase CK-MB (CK-2) Troponin T NT-Pro-B Natriuret Pep Total Protein Albumin Triglycerides TSH Arterial Blood Glucose Arterial Blood Ionized Calcium Urine pH Urine WBC (Auto) Urine Creatinine 11/03/20 11/03/20 11/03/20 05:05 11:51 17:43 WBC RBC Hgb Hct RDW Lymph % (Auto) [place] % (Auto) Eos % (Auto) Lymph # (Auto) [place] # (Auto) Eos # (Auto) Seg Neutrophils % Lymphocytes % (Manual) Monocytes % (Manual) Seg Neutrophils # Seg Neutrophils # Man Lymphocytes # (Manual) Monocytes # (Manual) D-Dimer Heparin Anti-Xa Level ABG pH 7.452 H POC ABG pCO2 55.4 H POC ABG pO2 129.1 H ABG pO2 ABG HCO3 ABG O2 Saturation ABG Base Excess ABG Hemoglobin 9.3 L ABG Oxyhemoglobin ABG Sodium ABG Potassium ABG Chloride ABG Glucose 99 H VBG pH Oxyhemoglobin Carboxyhemoglobin 1.7 H Sodium Potassium Chloride Carbon Dioxide BUN Creatinine Glucose POC Glucose 131 H 125 H Lactic Acid Calcium Phosphorus Magnesium Total Bilirubin AST ALT Ammonia Lactate Dehydrogenase Total Creatine Kinase CK-MB (CK-2) Troponin T NT-Pro-B Natriuret Pep Total Protein Albumin Triglycerides TSH Arterial Blood Glucose 99 H Arterial Blood Ionized Calcium Urine pH Urine WBC (Auto) Urine Creatinine 11/03/20 11/04/20 11/04/20 23:27 04:00 05:10 WBC RBC Hgb Hct RDW Lymph % (Auto) [place] % (Auto) Eos % (Auto) Lymph # (Auto) [place] # (Auto) Eos # (Auto) Seg Neutrophils % Lymphocytes % (Manual) Monocytes % (Manual) Seg Neutrophils # Seg Neutrophils # Man Lymphocytes # (Manual) Monocytes # (Manual) D-Dimer Heparin Anti-Xa Level ABG pH POC ABG pCO2 POC ABG pO2 ABG pO2 ABG HCO3 ABG O2 Saturation ABG Base Excess ABG Hemoglobin ABG Oxyhemoglobin ABG Sodium ABG Potassium ABG Chloride ABG Glucose VBG pH Oxyhemoglobin Carboxyhemoglobin Sodium Potassium Chloride 95.2 L Carbon Dioxide 40 H BUN 26 H Creatinine Glucose 128 H POC Glucose 148 H 126 H Lactic Acid Calcium Phosphorus Magnesium Total Bilirubin AST ALT Ammonia Lactate Dehydrogenase Total Creatine Kinase CK-MB (CK-2) Troponin T NT-Pro-B Natriuret Pep Total Protein Albumin Triglycerides TSH Arterial Blood Glucose Arterial Blood Ionized Calcium Urine pH Urine WBC (Auto) Urine Creatinine 11/04/20 11/04/20 11/04/20 11:39 18:00 21:18 WBC RBC Hgb Hct RDW Lymph % (Auto) [place] % (Auto) Eos % (Auto) Lymph # (Auto) [place] # (Auto) Eos # (Auto) Seg Neutrophils % Lymphocytes % (Manual) Monocytes % (Manual) Seg Neutrophils # Seg Neutrophils # Man Lymphocytes # (Manual) Monocytes # (Manual) D-Dimer Heparin Anti-Xa Level ABG pH 7.511 H POC ABG pCO2 49.0 H POC ABG pO2 ABG pO2 ABG HCO3 ABG O2 Saturation ABG Base Excess ABG Hemoglobin 9.5 L ABG Oxyhemoglobin ABG Sodium 135.7 L ABG Potassium ABG Chloride ABG Glucose 152 H VBG pH Oxyhemoglobin Carboxyhemoglobin Sodium Potassium Chloride Carbon Dioxide BUN Creatinine Glucose POC Glucose 142 H 130 H Lactic Acid Calcium Phosphorus Magnesium Total Bilirubin AST ALT Ammonia Lactate Dehydrogenase Total Creatine Kinase CK-MB (CK-2) Troponin T NT-Pro-B Natriuret Pep Total Protein Albumin Triglycerides TSH Arterial Blood Glucose 152 H Arterial Blood Ionized Calcium 4.3 L Urine pH Urine WBC (Auto) Urine Creatinine 11/04/20 11/05/20 11/05/20 23:19 03:30 03:30 WBC RBC 3.02 L Hgb 9.1 L Hct 26.7 L RDW Lymph % (Auto) [place] % (Auto) Eos % (Auto) Lymph # (Auto) [place] # (Auto) Eos # (Auto) Seg Neutrophils % Lymphocytes % (Manual) Monocytes % (Manual) Seg Neutrophils # Seg Neutrophils # Man Lymphocytes # (Manual) Monocytes # (Manual) D-Dimer Heparin Anti-Xa Level ABG pH POC ABG pCO2 POC ABG pO2 ABG pO2 ABG HCO3 ABG O2 Saturation ABG Base Excess ABG Hemoglobin ABG Oxyhemoglobin ABG Sodium ABG Potassium ABG Chloride ABG Glucose VBG pH Oxyhemoglobin Carboxyhemoglobin Sodium Potassium Chloride 93.6 L Carbon Dioxide 40 H BUN 24 H Creatinine Glucose 121 H POC Glucose 126 H Lactic Acid Calcium Phosphorus Magnesium Total Bilirubin AST ALT Ammonia Lactate Dehydrogenase Total Creatine Kinase CK-MB (CK-2) Troponin T NT-Pro-B Natriuret Pep Total Protein Albumin Triglycerides TSH Arterial Blood Glucose Arterial Blood Ionized Calcium Urine pH Urine WBC (Auto) Urine Creatinine 11/05/20 11/05/20 11/05/20 05:24 11:37 17:37 WBC RBC Hgb Hct RDW Lymph % (Auto) [place] % (Auto) Eos % (Auto) Lymph # (Auto) [place] # (Auto) Eos # (Auto) Seg Neutrophils % Lymphocytes % (Manual) Monocytes % (Manual) Seg Neutrophils # Seg Neutrophils # Man Lymphocytes # (Manual) Monocytes # (Manual) D-Dimer Heparin Anti-Xa Level ABG pH POC ABG pCO2 POC ABG pO2 ABG pO2 ABG HCO3 ABG O2 Saturation ABG Base Excess ABG Hemoglobin ABG Oxyhemoglobin ABG Sodium ABG Potassium ABG Chloride ABG Glucose VBG pH Oxyhemoglobin Carboxyhemoglobin Sodium Potassium Chloride Carbon Dioxide BUN Creatinine Glucose POC Glucose 124 H 125 H 153 H Lactic Acid Calcium Phosphorus Magnesium Total Bilirubin AST ALT Ammonia Lactate Dehydrogenase Total Creatine Kinase CK-MB (CK-2) Troponin T NT-Pro-B Natriuret Pep Total Protein Albumin Triglycerides TSH Arterial Blood Glucose Arterial Blood Ionized Calcium Urine pH Urine WBC (Auto) Urine Creatinine 0411/06/20 11/06/20 23:20 05:24 12:17 WBC RBC Hgb Hct RDW Lymph % (Auto) [place] % (Auto) Eos % (Auto) Lymph # (Auto) [place] # (Auto) Eos # (Auto) Seg Neutrophils % Lymphocytes % (Manual) Monocytes % (Manual) Seg Neutrophils # Seg Neutrophils # Man Lymphocytes # (Manual) Monocytes # (Manual) D-Dimer Heparin Anti-Xa Level ABG pH POC ABG pCO2 POC ABG pO2 ABG pO2 ABG HCO3 ABG O2 Saturation ABG Base Excess ABG Hemoglobin ABG Oxyhemoglobin ABG Sodium ABG Potassium ABG Chloride ABG Glucose VBG pH Oxyhemoglobin Carboxyhemoglobin Sodium Potassium Chloride Carbon Dioxide BUN Creatinine Glucose POC Glucose 133 H 143 H 139 H Lactic Acid Calcium Phosphorus Magnesium Total Bilirubin AST ALT Ammonia Lactate Dehydrogenase Total Creatine Kinase CK-MB (CK-2) Troponin T NT-Pro-B Natriuret Pep Total Protein Albumin Triglycerides TSH Arterial Blood Glucose Arterial Blood Ionized Calcium Urine pH Urine WBC (Auto) Urine Creatinine 11/06/20 11/06/20 11/07/20 17:38 23:26 04:50 WBC RBC 3.24 L Hgb 9.6 L Hct 29.0 L RDW Lymph % (Auto) [place] % (Auto) 10.3 H Eos % (Auto) 6.9 H Lymph # (Auto) [place] # (Auto) Eos # (Auto) 0.5 H Seg Neutrophils % Lymphocytes % (Manual) Monocytes % (Manual) Seg Neutrophils # Seg Neutrophils # Man Lymphocytes # (Manual) Monocytes # (Manual) D-Dimer Heparin Anti-Xa Level ABG pH POC ABG pCO2 POC ABG pO2 ABG pO2 ABG HCO3 ABG O2 Saturation ABG Base Excess ABG Hemoglobin ABG Oxyhemoglobin ABG Sodium ABG Potassium ABG Chloride ABG Glucose VBG pH Oxyhemoglobin Carboxyhemoglobin Sodium Potassium Chloride Carbon Dioxide BUN Creatinine Glucose POC Glucose 139 H 117 H Lactic Acid Calcium Phosphorus Magnesium Total Bilirubin AST ALT Ammonia Lactate Dehydrogenase Total Creatine Kinase CK-MB (CK-2) Troponin T NT-Pro-B Natriuret Pep Total Protein Albumin Triglycerides TSH Arterial Blood Glucose Arterial Blood Ionized Calcium Urine pH Urine WBC (Auto) Urine Creatinine 11/07/20 11/07/20 11/07/20 04:50 05:10 12:22 WBC RBC Hgb Hct RDW Lymph % (Auto) [place] % (Auto) Eos % (Auto) Lymph # (Auto) [place] # (Auto) Eos # (Auto) Seg Neutrophils % Lymphocytes % (Manual) Monocytes % (Manual) Seg Neutrophils # Seg Neutrophils # Man Lymphocytes # (Manual) Monocytes # (Manual) D-Dimer Heparin Anti-Xa Level ABG pH POC ABG pCO2 POC ABG pO2 ABG pO2 ABG HCO3 ABG O2 Saturation ABG Base Excess ABG Hemoglobin ABG Oxyhemoglobin ABG Sodium ABG Potassium ABG Chloride ABG Glucose VBG pH Oxyhemoglobin Carboxyhemoglobin Sodium Potassium Chloride 97.2 L Carbon Dioxide 36 H BUN 25 H Creatinine Glucose 130 H POC Glucose 115 H 118 H Lactic Acid Calcium Phosphorus Magnesium Total Bilirubin AST ALT Ammonia Lactate Dehydrogenase Total Creatine Kinase CK-MB (CK-2) Troponin T NT-Pro-B Natriuret Pep Total Protein Albumin Triglycerides TSH Arterial Blood Glucose Arterial Blood Ionized Calcium Urine pH Urine WBC (Auto) Urine Creatinine 11/07/20 11/07/20 11/08/20 17:46 23:53 07:16 WBC RBC Hgb Hct RDW Lymph % (Auto) [place] % (Auto) Eos % (Auto) Lymph # (Auto) [place] # (Auto) Eos # (Auto) Seg Neutrophils % Lymphocytes % (Manual) Monocytes % (Manual) Seg Neutrophils # Seg Neutrophils # Man Lymphocytes # (Manual) Monocytes # (Manual) D-Dimer Heparin Anti-Xa Level ABG pH POC ABG pCO2 POC ABG pO2 ABG pO2 ABG HCO3 ABG O2 Saturation ABG Base Excess ABG Hemoglobin ABG Oxyhemoglobin ABG Sodium ABG Potassium ABG Chloride ABG Glucose VBG pH Oxyhemoglobin Carboxyhemoglobin Sodium Potassium Chloride Carbon Dioxide BUN Creatinine Glucose POC Glucose 150 H 141 H 134 H Lactic Acid Calcium Phosphorus Magnesium Total Bilirubin AST ALT Ammonia Lactate Dehydrogenase Total Creatine Kinase CK-MB (CK-2) Troponin T NT-Pro-B Natriuret Pep Total Protein Albumin Triglycerides TSH Arterial Blood Glucose Arterial Blood Ionized Calcium Urine pH Urine WBC (Auto) Urine Creatinine 11/08/20 11/08/20 11/08/20 11:35 17:59 23:50 WBC RBC Hgb Hct RDW Lymph % (Auto) [place] % (Auto) Eos % (Auto) Lymph # (Auto) [place] # (Auto) Eos # (Auto) Seg Neutrophils % Lymphocytes % (Manual) Monocytes % (Manual) Seg Neutrophils # Seg Neutrophils # Man Lymphocytes # (Manual) Monocytes # (Manual) D-Dimer Heparin Anti-Xa Level ABG pH POC ABG pCO2 POC ABG pO2 ABG pO2 ABG HCO3 ABG O2 Saturation ABG Base Excess ABG Hemoglobin ABG Oxyhemoglobin ABG Sodium ABG Potassium ABG Chloride ABG Glucose VBG pH Oxyhemoglobin Carboxyhemoglobin Sodium Potassium Chloride Carbon Dioxide BUN Creatinine Glucose POC Glucose 148 H 118 H 131 H Lactic Acid Calcium Phosphorus Magnesium Total Bilirubin AST ALT Ammonia Lactate Dehydrogenase Total Creatine Kinase CK-MB (CK-2) Troponin T NT-Pro-B Natriuret Pep Total Protein Albumin Triglycerides TSH Arterial Blood Glucose Arterial Blood Ionized Calcium Urine pH Urine WBC (Auto) Urine Creatinine 11/09/20 11/09/20 11/09/20 12:07 17:00 23:45 WBC RBC Hgb Hct RDW Lymph % (Auto) [place] % (Auto) Eos % (Auto) Lymph # (Auto) [place] # (Auto) Eos # (Auto) Seg Neutrophils % Lymphocytes % (Manual) Monocytes % (Manual) Seg Neutrophils # Seg Neutrophils # Man Lymphocytes # (Manual) Monocytes # (Manual) D-Dimer Heparin Anti-Xa Level ABG pH POC ABG pCO2 POC ABG pO2 ABG pO2 ABG HCO3 ABG O2 Saturation ABG Base Excess ABG Hemoglobin ABG Oxyhemoglobin ABG Sodium ABG Potassium ABG Chloride ABG Glucose VBG pH Oxyhemoglobin Carboxyhemoglobin Sodium Potassium Chloride Carbon Dioxide BUN Creatinine Glucose POC Glucose 133 H 126 H 129 H Lactic Acid Calcium Phosphorus Magnesium Total Bilirubin AST ALT Ammonia Lactate Dehydrogenase Total Creatine Kinase CK-MB (CK-2) Troponin T NT-Pro-B Natriuret Pep Total Protein Albumin Triglycerides TSH Arterial Blood Glucose Arterial Blood Ionized Calcium Urine pH Urine WBC (Auto) Urine Creatinine 11/10/20 11/10/20 11/10/20 05:43 11:47 17:56 WBC RBC Hgb Hct RDW Lymph % (Auto) [place] % (Auto) Eos % (Auto) Lymph # (Auto) [place] # (Auto) Eos # (Auto) Seg Neutrophils % Lymphocytes % (Manual) Monocytes % (Manual) Seg Neutrophils # Seg Neutrophils # Man Lymphocytes # (Manual) Monocytes # (Manual) D-Dimer Heparin Anti-Xa Level ABG pH POC ABG pCO2 POC ABG pO2 ABG pO2 ABG HCO3 ABG O2 Saturation ABG Base Excess ABG Hemoglobin ABG Oxyhemoglobin ABG Sodium ABG Potassium ABG Chloride ABG Glucose VBG pH Oxyhemoglobin Carboxyhemoglobin Sodium Potassium Chloride Carbon Dioxide BUN Creatinine Glucose POC Glucose 111 H 136 H 110 H Lactic Acid Calcium Phosphorus Magnesium Total Bilirubin AST ALT Ammonia Lactate Dehydrogenase Total Creatine Kinase CK-MB (CK-2) Troponin T NT-Pro-B Natriuret Pep Total Protein Albumin Triglycerides TSH Arterial Blood Glucose Arterial Blood Ionized Calcium Urine pH Urine WBC (Auto) Urine Creatinine 11/10/20 11/11/20 11/11/20 23:34 03:11 05:22 WBC RBC Hgb Hct RDW Lymph % (Auto) [place] % (Auto) Eos % (Auto) Lymph # (Auto) [place] # (Auto) Eos # (Auto) Seg Neutrophils % Lymphocytes % (Manual) Monocytes % (Manual) Seg Neutrophils # Seg Neutrophils # Man Lymphocytes # (Manual) Monocytes # (Manual) D-Dimer Heparin Anti-Xa Level ABG pH POC ABG pCO2 64.5 H POC ABG pO2 ABG pO2 ABG HCO3 ABG O2 Saturation ABG Base Excess ABG Hemoglobin 9.7 L ABG Oxyhemoglobin ABG Sodium ABG Potassium 5.0 H ABG Chloride ABG Glucose 148 H VBG pH Oxyhemoglobin Carboxyhemoglobin Sodium Potassium Chloride Carbon Dioxide BUN Creatinine Glucose POC Glucose 134 H 132 H Lactic Acid Calcium Phosphorus Magnesium Total Bilirubin AST ALT Ammonia Lactate Dehydrogenase Total Creatine Kinase CK-MB (CK-2) Troponin T NT-Pro-B Natriuret Pep Total Protein Albumin Triglycerides TSH Arterial Blood Glucose 148 H Arterial Blood Ionized Calcium Urine pH Urine WBC (Auto) Urine Creatinine 11/11/20 11/11/20 11/11/20 08:38 11:00 12:01 WBC RBC 2.79 L Hgb 8.4 L Hct 25.4 L RDW Lymph % (Auto) [place] % (Auto) Eos % (Auto) Lymph # (Auto) [place] # (Auto) Eos # (Auto) Seg Neutrophils % Lymphocytes % (Manual) Monocytes % (Manual) Seg Neutrophils # Seg Neutrophils # Man Lymphocytes # (Manual) Monocytes # (Manual) D-Dimer Heparin Anti-Xa Level ABG pH POC ABG pCO2 POC ABG pO2 ABG pO2 ABG HCO3 ABG O2 Saturation ABG Base Excess ABG Hemoglobin ABG Oxyhemoglobin ABG Sodium ABG Potassium ABG Chloride ABG Glucose VBG pH Oxyhemoglobin Carboxyhemoglobin Sodium 136 L Potassium Chloride 97.6 L Carbon Dioxide 35 H BUN 26 H Creatinine Glucose 133 H POC Glucose 142 H Lactic Acid Calcium 8.0 L Phosphorus Magnesium Total Bilirubin AST ALT Ammonia Lactate Dehydrogenase Total Creatine Kinase CK-MB (CK-2) Troponin T NT-Pro-B Natriuret Pep Total Protein Albumin Triglycerides TSH Arterial Blood Glucose Arterial Blood Ionized Calcium Urine pH Urine WBC (Auto) Urine Creatinine 11/11/20 11/12/20 11/12/20 23:12 05:31 07:41 WBC RBC Hgb Hct RDW Lymph % (Auto) [place] % (Auto) Eos % (Auto) Lymph # (Auto) [place] # (Auto) Eos # (Auto) Seg Neutrophils % Lymphocytes % (Manual) Monocytes % (Manual) Seg Neutrophils # Seg Neutrophils # Man Lymphocytes # (Manual) Monocytes # (Manual) D-Dimer Heparin Anti-Xa Level ABG pH POC ABG pCO2 POC ABG pO2 ABG pO2 ABG HCO3 ABG O2 Saturation ABG Base Excess ABG Hemoglobin ABG Oxyhemoglobin ABG Sodium ABG Potassium ABG Chloride ABG Glucose VBG pH Oxyhemoglobin Carboxyhemoglobin Sodium Potassium Chloride Carbon Dioxide BUN Creatinine Glucose POC Glucose 127 H 117 H 137 H Lactic Acid Calcium Phosphorus Magnesium Total Bilirubin AST ALT Ammonia Lactate Dehydrogenase Total Creatine Kinase CK-MB (CK-2) Troponin T NT-Pro-B Natriuret Pep Total Protein Albumin Triglycerides TSH Arterial Blood Glucose Arterial Blood Ionized Calcium Urine pH Urine WBC (Auto) Urine Creatinine 11/12/20 11/12/20 11/12/20 11:26 15:29 21:30 WBC RBC Hgb Hct RDW Lymph % (Auto) [place] % (Auto) Eos % (Auto) Lymph # (Auto) [place] # (Auto) Eos # (Auto) Seg Neutrophils % Lymphocytes % (Manual) Monocytes % (Manual) Seg Neutrophils # Seg Neutrophils # Man Lymphocytes # (Manual) Monocytes # (Manual) D-Dimer Heparin Anti-Xa Level ABG pH POC ABG pCO2 POC ABG pO2 ABG pO2 ABG HCO3 ABG O2 Saturation ABG Base Excess ABG Hemoglobin ABG Oxyhemoglobin ABG Sodium ABG Potassium ABG Chloride ABG Glucose VBG pH Oxyhemoglobin Carboxyhemoglobin Sodium Potassium Chloride Carbon Dioxide BUN Creatinine Glucose POC Glucose 130 H 146 H 123 H Lactic Acid Calcium Phosphorus Magnesium Total Bilirubin AST ALT Ammonia Lactate Dehydrogenase Total Creatine Kinase CK-MB (CK-2) Troponin T NT-Pro-B Natriuret Pep Total Protein Albumin Triglycerides TSH Arterial Blood Glucose Arterial Blood Ionized Calcium Urine pH Urine WBC (Auto) Urine Creatinine 11/13/20 11/13/20 11/13/20 05:52 07:37 15:34 WBC RBC Hgb Hct RDW Lymph % (Auto) Carson % (Auto) Eos % (Auto) Lymph # (Auto) Carson # (Auto) Eos # (Auto) Seg Neutrophils % Lymphocytes % (Manual) Monocytes % (Manual) Seg Neutrophils # Seg Neutrophils # Man Lymphocytes # (Manual) Monocytes # (Manual) D-Dimer Heparin Anti-Xa Level ABG pH POC ABG pCO2 POC ABG pO2 ABG pO2 ABG HCO3 ABG O2 Saturation ABG Base Excess ABG Hemoglobin ABG Oxyhemoglobin ABG Sodium ABG Potassium ABG Chloride ABG Glucose VBG pH Oxyhemoglobin Carboxyhemoglobin Sodium Potassium Chloride Carbon Dioxide BUN Creatinine Glucose POC Glucose 142 H 109 H 127 H Lactic Acid Calcium Phosphorus Magnesium Total Bilirubin AST ALT Ammonia Lactate Dehydrogenase Total Creatine Kinase CK-MB (CK-2) Troponin T NT-Pro-B Natriuret Pep Total Protein Albumin Triglycerides TSH Arterial Blood Glucose Arterial Blood Ionized Calcium Urine pH Urine WBC (Auto) Urine Creatinine 11/13/20 11/13/20 11/13/20 16:43 16:52 21:18 WBC RBC Hgb Hct RDW Lymph % (Auto) Carson % (Auto) Eos % (Auto) Lymph # (Auto) Carson # (Auto) Eos # (Auto) Seg Neutrophils % Lymphocytes % (Manual) Monocytes % (Manual) Seg Neutrophils # Seg Neutrophils # Man Lymphocytes # (Manual) Monocytes # (Manual) D-Dimer Heparin Anti-Xa Level ABG pH POC ABG pCO2 68.4 H POC ABG pO2 ABG pO2 ABG HCO3 ABG O2 Saturation ABG Base Excess ABG Hemoglobin 10.0 L ABG Oxyhemoglobin ABG Sodium ABG Potassium ABG Chloride ABG Glucose 133 H VBG pH Oxyhemoglobin Carboxyhemoglobin Sodium Potassium Chloride Carbon Dioxide BUN Creatinine Glucose POC Glucose 111 H 108 H Lactic Acid Calcium Phosphorus Magnesium Total Bilirubin AST ALT Ammonia Lactate Dehydrogenase Total Creatine Kinase CK-MB (CK-2) Troponin T NT-Pro-B Natriuret Pep Total Protein Albumin Triglycerides TSH Arterial Blood Glucose 133 H Arterial Blood Ionized Calcium Urine pH Urine WBC (Auto) Urine Creatinine 11/14/20 11/14/20 11/14/20 12:07 18:16 23:21 WBC RBC Hgb Hct RDW Lymph % (Auto) Carson % (Auto) Eos % (Auto) Lymph # (Auto) Carson # (Auto) Eos # (Auto) Seg Neutrophils % Lymphocytes % (Manual) Monocytes % (Manual) Seg Neutrophils # Seg Neutrophils # Man Lymphocytes # (Manual) Monocytes # (Manual) D-Dimer Heparin Anti-Xa Level ABG pH POC ABG pCO2 POC ABG pO2 ABG pO2 ABG HCO3 ABG O2 Saturation ABG Base Excess ABG Hemoglobin ABG Oxyhemoglobin ABG Sodium ABG Potassium ABG Chloride ABG Glucose VBG pH Oxyhemoglobin Carboxyhemoglobin Sodium Potassium Chloride Carbon Dioxide BUN Creatinine Glucose POC Glucose 107 H 109 H 114 H Lactic Acid Calcium Phosphorus Magnesium Total Bilirubin AST ALT Ammonia Lactate Dehydrogenase Total Creatine Kinase CK-MB (CK-2) Troponin T NT-Pro-B Natriuret Pep Total Protein Albumin Triglycerides TSH Arterial Blood Glucose Arterial Blood Ionized Calcium Urine pH Urine WBC (Auto) Urine Creatinine 11/15/20 11/15/20 11/15/20 11:14 16:11 23:57 WBC RBC Hgb Hct RDW Lymph % (Auto) Carson % (Auto) Eos % (Auto) Lymph # (Auto) Carson # (Auto) Eos # (Auto) Seg Neutrophils % Lymphocytes % (Manual) Monocytes % (Manual) Seg Neutrophils # Seg Neutrophils # Man Lymphocytes # (Manual) Monocytes # (Manual) D-Dimer Heparin Anti-Xa Level ABG pH POC ABG pCO2 POC ABG pO2 ABG pO2 ABG HCO3 ABG O2 Saturation ABG Base Excess ABG Hemoglobin ABG Oxyhemoglobin ABG Sodium ABG Potassium ABG Chloride ABG Glucose VBG pH Oxyhemoglobin Carboxyhemoglobin Sodium Potassium Chloride Carbon Dioxide BUN Creatinine Glucose POC Glucose 126 H 135 H 128 H Lactic Acid Calcium Phosphorus Magnesium Total Bilirubin AST ALT Ammonia Lactate Dehydrogenase Total Creatine Kinase CK-MB (CK-2) Troponin T NT-Pro-B Natriuret Pep Total Protein Albumin Triglycerides TSH Arterial Blood Glucose Arterial Blood Ionized Calcium Urine pH Urine WBC (Auto) Urine Creatinine 11/16/20 12:16 WBC RBC Hgb Hct RDW Lymph % (Auto) Carson % (Auto) Eos % (Auto) Lymph # (Auto) Carson # (Auto) Eos # (Auto) Seg Neutrophils % Lymphocytes % (Manual) Monocytes % (Manual) Seg Neutrophils # Seg Neutrophils # Man Lymphocytes # (Manual) Monocytes # (Manual) D-Dimer Heparin Anti-Xa Level ABG pH POC ABG pCO2 POC ABG pO2 ABG pO2 ABG HCO3 ABG O2 Saturation ABG Base Excess ABG Hemoglobin ABG Oxyhemoglobin ABG Sodium ABG Potassium ABG Chloride ABG Glucose VBG pH Oxyhemoglobin Carboxyhemoglobin Sodium Potassium Chloride Carbon Dioxide BUN Creatinine Glucose POC Glucose 138 H Lactic Acid Calcium Phosphorus Magnesium Total Bilirubin AST ALT Ammonia Lactate Dehydrogenase Total Creatine Kinase CK-MB (CK-2) Troponin T NT-Pro-B Natriuret Pep Total Protein Albumin Triglycerides TSH Arterial Blood Glucose Arterial Blood Ionized Calcium Urine pH Urine WBC (Auto) Urine Creatinine Allied health notes reviewed: nursing
[2020-11-16] MEDS: QUEtiapine 200 MG TAB PO SCH (22:18)
[2020-11-17] MEDS ORDERED: ALTEPLASE 2 MG INJ IV ONE (01:30)
[2020-11-17 04:29] LABS: Basophils # (Auto) 0.1 K/mm3 (0.0-0.1); Basophils % (Auto) 0.8 % (0.0-1.8); Eosinophils # (Auto) 0.5 K/mm3 (0.0-0.4); Eosinophils % (Auto) 6.9 % (0.0-4.3); Hemoglobin 9.2 gm/dl (11.8-15.2); Lymphocytes # (Auto) 0.9 K/mm3 (1.2-5.4); Lymphocytes % (Auto) 13.5 % (13.4-35.0); Mean Corpuscular HGB Conc 33 % (32-34); Mean Corpuscular Volume 91 fl (84-94); Monocytes # (Auto) 0.8 K/mm3 (0.0-0.8); Monocytes % (Auto) 12.4 % (0.0-7.3); Platelet Count 268 K/mm3 (140-440); Red Blood Count 3.07 M/mm3 (3.65-5.03); Red Cell Distribution Width 15.7 % (13.2-15.2)
[2020-11-17 04:39] LABS: Alanine Aminotransferase 9 units/L (7-56); Albumin 2.9 g/dL (3.9-5); BUN/Creatinine Ratio 24; Blood Urea Nitrogen 24 mg/dL (9-20); Calcium 8.8 mg/dL (8.4-10.2); Hemolysis Index 27
[2020-11-17] MEDS: hydrALAZINE 100 MG TAB PO SCH ×3 (05:27→21:44)
[2020-11-17] MEDS: GLYCOPYRROLATE 1 MG TAB PO SCH ×3 (05:28→21:44)
[2020-11-17] MEDS ORDERED: LORazepam 2 MG/ML VIAL IM ONE (05:32)
[2020-11-17] MEDS: LANSOPRAZOLE 30 MG SOLUTAB FEEDTUBE SCH ×2 (09:04→21:44)
[2020-11-17] MEDS: POLYETHYLENE GLYCOL 3350 17 GM POWDER PO SCH (09:04)
[2020-11-17] MEDS: amLODIPine 10 MG TAB PO SCH (09:04)
[2020-11-17] MEDS: QUEtiapine 100 MG TAB PO SCH (09:10)
[2020-11-17] MEDS: QUEtiapine 25 MG TAB PO SCH (09:10)
[2020-11-17] MEDS: METOPROLOL TARTRATE 50 MG TAB PO SCH ×3 (09:10→21:43)
[2020-11-17] MEDS: HEPARIN 5,000 UNIT/1 ML VIAL SUB-Q SCH ×2 (09:11→21:43)
[2020-11-17] MEDS: levETIRAcetam 500 MG/5 ML ORAL LIQD PO SCH ×2 (09:11→21:44)
[2020-11-17] MEDS: DOCUSATE SODIUM 100 MG/10 ML ORAL LIQD PO SCH ×2 (09:12→21:43)
--- NOTE | 2020-11-17 11:48 | Progress Note ---
Assessment and Plan Assessment and plan: This is a 55-year-old male with hypertension, asthma, obesity who was admitted on 10/10 after cardiac arrest x2 (supposedly after COVID-19 vaccine injection), sepsis, right-sided pneumonia, NSTEMI type II, acute heart failure, acute hypoxic respiratory failure, acute kidney injury and anoxic brain injury. Sepsis s/p multiple Cardiac Arrests s/p right-sided pneumonia MRSA in tracheal aspirate NSTEMI type II Acute heart failure Afib/Aflutter Acute hypoxic respiratory failure Acute kidney injury (improved) Transaminitis HTN Obesity Seizure disorder -Infectious disease, CCM, GI, nephrology, cardiology, surgery consulted, appreciate recommendations -s/p Antibiotic therapy -10/18 recultured (blood/sputum/nasal discharge and urinalysis), tracheal aspirate with MRSA -S/p Linezolid -Continue antihypertensive regimen -s/p IV amiodarone for A. fib/a flutter now on p.o. beta-shital -Trend CBC, BMP, LFT -trach/peg 10/27 -Mucomyst -Keppra -Avoid nephrotoxic medications, strict intake and output, renal ultrasound shows no obstruction -10/10 echocardiogram shows left internal systolic function normal, moderate concentric left ventricle hypertrophy, mild to side diastolic dysfunction, LVEF 55 to 60% with no pericardial effusion -Bilateral Doppler ultrasound negative for DVT/SVT which shows bilateral popliteal cysts -MRI Brain shows restricted diffusion and increased T2 signal cerebral cortex which can be seen in the setting of anoxic brain injury and/ or status epilepticus. -Repeat EEG shows significant generalized slowing compatible with to moderate severe diffuse neuropathy recently compatible with anoxic/ischemic encephalopathy -Will get sputum cultures and chest xray as he has thick secretions and Temp >100F. GI/DVT prophylaxis: SCDs to bilateral lower extremities while in bed, PPI, H eparin subq Dispo: assisted facility versus LTAC History Interval history: This is a 55-year-old male with hypertension, asthma, obesity in the emergency by presented to the emergency department on 10/10 after receiving a Covid vaccine being found unresponsive in his car in the emergency room bay with no pulse and ACLS protocol was initiated from his car to emergency room #21 where it was continued. Patient was intubated after ROSC was achieved and a central line was placed and the patient was initiated on pressors. In the emergency room patient seems to have seizure-like activity and then collapsed and was unresponsive with no palpable pulse and ACLS was again initiated patient with achievement of ROSC. Patient again coded with ACLS protocol in the CT room. Upon arrival to the ICU patient again coded and ROSC was achieved and he was placed on epinephrine, Lasix, heparin and sodium bicarbonate drip and sedated with propofol. An NG t ube was placed, A-line was placed. Patient was admitted to the hospitalist service with consult to [facility], nephrology, infectious disease and cardiology. 10/11: Patient COVID-19 PCR is pending and he remains on mechanical ventilation, examination on assist control 400/30/12/0.95. Patient is scheduled for an echocardiogram and we will obtain bilateral lower extremity Doppler ultrasound given elevated D-dimer. Patient was supposed to have a CTA chest when he coded yesterday. We will begin trickle feeding. This morning patient was on a heparin drip and was noted to have bloody drainage from his NG tube. Heparin drip was discontinued. 10/12: Patient remains on propofol and Lasix drip at the time my examination and he is on assist control 400/25/12/0.60. Patient is hypokalemic this morning which was repleted. Nephrology discontinued Lasix drip and Diamox. Patient is hypertensive and has been started on hydralazine and beta-shital IV. He has been titrated off his vasopressors since yesterday. Vancomycin discontinued. Patient is currently on cefepime and azithromycin. 10/13: Sedation vacation attempted today and patient was not responsive to verbal or painful stimuli, does not track or focus or follow commands. This morning the patient has some respiratory alkalosis on ABG, hypernatremia and metabolic alkalosis on BMP. His kidney functions has improved slightly. Patient still has leukocytosis and infectious disease was like to continue antibiotic therapy. GI evaluated the patient yesterday and started the patient on PPI does not plan to scope at this time. At the time my examination patient assist-control 400/20/12/0.40 and sedated on propofol at 20. 4/2: GI has recommended a CT abdomen since there is increased output from OG tube and an MRI brain without contrast has been ordered per neurology recommendations. EEG is pending and the patient has been started on Keppra per neurology.. Nutrition has been consulted for initiation of parenteral nutrition. Patient remains sedated with propofol and his hypernatremia, leukocytosis, acute kidney injury and metabolic alkalosis is improving. Patient has hypokalemia today which was repleted. At the time of my examination patient was on assist control 400/14/10/0.40 and CCM has dropped his rate to 12 and PEEP to 8. We have labs ordered for a.m. He was given a clonidine patch given persistent hypertension and he remains on D5 water per nephrology. 10/15: This morning patient was started to have a low-grade fever and he will continue antibiotic therapy per infectious disease. He will remove Tuttle catheter today and place a condom cath. Patient's renal function is worsening with a BUN/creatinine of 57/2.4 today and he has hyperphosphatemia at 5.2. This morning the time my examination patient is sedated on fentanyl and has TPN infusing. He is on assist control 400/12/8/0.35. Per GI we will start trial of tube feedings initiation has been reconsulted for orders. 10/18: Patient was febrile overnight and infectious disease has recultured (blood/sputum/right nostril culture) and sent in urinalysis. Cefepime was extended due to high fever and was started on vancomycin. Tube feeding is at goal and we will discontinue his parenteral nutrition. Patient is unable to obtain his MRI due to increased hypoxia and nasal secretions. He will be started on CPAP trials today. This time I examination patient was sedated on fentanyl and had PPN running at 42. His renal function tests have worsened and now has hyperchloremia. Hypernatremia has resolved. 10/19: Patient's T-max was 100.2 and he was pancultured yesterday, remains on antibiotic therapy and still has copious drainage from his nostrils. Patient still has leukocytosis however his/creatinine improved slightly to 3.1 from 3.3. Patient's urinalysis from yesterday shows pyuria. Patient's tracheal aspirate from yesterday grew Staph aureus. Patient is on cefepime and vancomycin. 10/20: This morning at the time my examination patient was CPAP trial of 6 and his T-max was 100.9. Patient sedated on fentanyl at 2 just received IV push fentanyl for tachycardia. Today his creatinine is 2.8 from 3.1 yesterday. Infectious disease has stopped cefepime and vancomycin and started linezolid and MRSA PCR is pending. Today removed his NG tube and replaced it with OG tube. We will keep the patient normal saline at 75 mL's per hour for 3 L. Patient developed A. fib/a flutter overnight and cardiology has increased his Lopressor and IV amiodarone. We requested neurology evaluation today. 10/21: Cardiology we will increase Lopressor to 3 times daily and discontinue his amiodarone drip. Infectious disease would like a sinus CT when feasible however patient did have a moment of desatting earlier this week when we attempted MRI brain. And again yesterday when we attempted a "trial run" with positioning at bedside Patient is on linezolid for 10 days per ID. 10/22/20; patient was seen and evaluated this morning, patient had low-grade fever overnight. Patient is on Lopressor per cardiology recommendation. Patient did not follow commands, no improvement in mental status. Evaluated by neurology yesterday and neurology once MRI or CAT scan but cannot be done because patient desats when he lies flat. Patient is on linezolid per ID recommendation. Continue NG tube feeding. Continue with Keppra. Patient is on assist control with PEEP of 6. Management plan was discussed with his yesterday. 10/23/2020; patient is on Zyvox for positive MRSA from tracheal aspirate and nasal secretion culture. Patient's mentation did not improve and does not follow commands. He was reevaluated by neurology and recommend MRI once patient is able to tolerate. MRI could not be done, CT scan could not be done because the patient could not lie flat. Clinically patient looks like she has anoxic encephalopathy. Patient is on NG tube feeding and on mechanical ventilation. Patient is on Keppra. Management plan was discussed with his . 10/24: This morning the patient is on AC TV 400,R 16, Peep 6 and FiO2 of 30% and sedated on 1mcg of Fentayl. He is hypernatremic and his kidney function tests have slightly improved. RN will attempt to obtain MRI Brain today since the patient was able to tolerate a "trial run" of being flat. [facility] plans to resume CPAP trials once MRI obtained. 10/25: This morning the time of examination patient was on assist control tidal volume 400, rate 16, PEEP 6, FiO2 30% and he is currently on CPAP. His MRI brain finding is consistent with status epilepticus or anoxic brain injury. Patient is EEG pending. No acute overnight events reported. 10/26: Patient has been on a CPAP trial / which she has been tolerating. Surgery was consulted for trach/PEG. Patient's hypernatremia and hyperchloremia slightly better as well as his kidney functions. He has received cardiac clearance for his trach and PEG. No acute events reported overnight. 10/27: At the time my examination patient was on CPAP trial 15/6 and 30% FiO2. Patient's electrolyte abnormalities were improving and sources kidney function. His T-max overnight was 99.3 and he remains on linezolid. No acute events reported overnight. 10/28: Yesterday patient had a trach and PEG placed. Patient remains n.p.o. as he has not been cleared by surgery to resume p.o. intake. Today he has slight leukocytosis which is likely reactive, hyponatremia, metabolic alkalosis however his kidney function continues to improve. No acute events overnight. 10/29: Plan to start tube feeding today, patient remains on mechanical ventilation with trach tube. Remains comatose without any change in mental status. Called and updated. 10/30: Vitals stable, patient remains on trach tube with ventilator. Tolerating tube feeding, otherwise clinically unchanged. Continue to provide supportive care and wean off from vent as tolerated. 10/31: No acute events reported overnight. Patient is CPAP at the time my examination however he will be tried on trach collar and we will obtain an ABG within 2 hours. 11/01. Patient is on a trach collar at 35% FiO2, he was reported, patient received Lasix and will obtain an ABG at 2100. dr. Uribe updated his and his mother is at bedside visiting him. 11/02. Patient was rested on assist control due to "tube feedings" endotracheal tube however CXR looks mild atelectasis rather than pneumonia. [facility] has given the patient another dose of Lasix and will obtain a CXR in the a.m. Patient remains with low-grade fever and we will resume daily SBT as tolerated. We will obtain a.m. labs and resume tube feedings. 11/03: Overnight the patient was rested on assist control and this afternoon he received CPAP trials. Patient's CXR looks pulmonary edema and he received additional 20 mg of Lasix today and tomorrow. Dr. Uribe updated the patient's family via phone today and they do not wish to change his code status. Patient's Robinul and scopolamine was decreased. 11/04: Patient was started on Mucomyst due to thick secretion, will continue gentle diuresis and again began T-piece trials. Pa this time my examination he was on CPAP trial 10 and was rested overnight, assist control. According to documentation patient rested on CPAP trial yesterday for approximately 4-1/2 hours. No acute events reported overnight. 11/05 patient improved with Mucomyst. Attempted weaning to begin T-piece trial. Physical examination consistent with anoxia 11/06. No new events over p.m. Secretions appear to be controlled. Updated family today. All questions and concerns answered to family satisfaction. 11/07: T-piece trials to resume. No acute events overnight. Continue current care. PT/OT consult. Transfer to [facility]. 11/09/2020. No new issues. Continue trach care, secretion control and airway management. Continue tube feedings which the patient is tolerating. Gastrostomy tube care. 11/11: Patient has remained on T-piece for 24 hours and he will be transferred to the floor. He is restarted on Mucomyst today per [facility]. 11/12: The patient was transferred to the floor yesterday and remained stable on T-piece. Continue tracheostomy care, secretion control and airway management. Continue Mucomyst. -10/24 MRI Brain shows restricted diffusion and increased T2 signal cerebral cortex which can be seen in the setting of anoxic brain injury and/ or status epilepticus. -10/26 EEG shows significant generalized slowing compatible with to moderate severe diffuse neuropathy recently compatible with anoxic/ischemic encephalopathy 11/13: Patient remains on T-piece with oxygen at 8 L/min and saturations of 97%. Continue tracheostomy care secretion control and airway management. Gastrostomy tube care. Tube feedings with aspiration precaution. 11/14: Patient with an episode yesterday evening of tachypnea and desaturation. Also, patient noted to have distended abdomen/bladder which is likely causing respiratory distress. Tuttle was placed for urinary retention. ABG revealed pH 7.3, PCO2 68 and PO2 of 101. Pulmonology made no changes. Patient still on T- piece at 10 L/min with FiO2 35%. Continue tracheostomy care secretion control and airway management. Gastrostomy tube care. Tube feedings with aspiration precaution. 11/15. Has thick secretions from the tracheostomy. Remains on 6 L of oxygen. Tuttle was placed yesterday for distended bladder. 11/16. Not responsive. Temp spikes noted - 100.2F. Will get sputum culture. Continue oxygen supplementation. Needs placement. Discussed with patients spouse today. 11/17. Waiting for placement. Has [employer] insurance. He remains unresponsive. Temp 99.7. Chest xray, sputum culture pending. Hospitalist Physical - Physical exam Narrative exam: VITAL SIGNS: Reviewed. GENERAL: Awake. Not responsive HEAD: No signs of head trauma. EYES: Pupils are equal. MOUTH: Oropharynx is normal. NECK: No adenopathy, no JVD. Trach in place CHEST: Rales bilaterally CARDIAC: normal S1 and S2, without murmurs, gallops, or rubs. ABDOMEN: Soft, non tender and non distended. No rebound or guarding, and no masses palpated. Bowel Sounds normal. MUSCULOSKELETAL: No edema NEUROLOGIC EXAM: Not responsive SKIN: No obvious lesions - Constitutional Vitals: Temp Pulse Resp BP Pulse Ox 99.7 F H 100 H 22 184/107 93 11/17/20 08:27 11/17/20 09:10 11/17/20 08:27 11/17/20 08:27 11/17/20 08:27 HEART Score - HEART Score EKG: Non-specific Age: 45-65 Troponin: Troponin T 0.125 ng/mL (0.00-0.029) H* D 10/12/20 04:00 Troponin: 1-3x normal limit - Critical Actions Critical Actions: 4-6 pts:12-16.6% risk of adverse cardiac event. Should be admitted Results - Labs CBC & Chem 7: 11/17/20 03:48 11/17/20 03:48 Labs: Laboratory Last Values WBC 6.7 K/mm3 (4.5-11.0) 11/17/20 03:48 RBC 3.07 M/mm3 (3.65-5.03) L 11/17/20 03:48 Hgb 9.2 gm/dl (11.8-15.2) L 11/17/20 03:48 Hct 28.0 % (35.5-45.6) L 11/17/20 03:48 MCV 91 fl (84-94) 11/17/20 03:48 MCH 30 pg (28-32) 11/17/20 03:48 MCHC 33 % (32-34) 11/17/20 03:48 RDW 15.7 % (13.2-15.2) H 11/17/20 03:48 Plt Count 268 K/mm3 (140-440) 11/17/20 03:48 Lymph % (Auto) 13.5 % (13.4-35.0) 11/17/20 03:48 Kidder % (Auto) 12.4 % (0.0-7.3) H 11/17/20 03:48 Eos % (Auto) 6.9 % (0.0-4.3) H 11/17/20 03:48 Baso % (Auto) 0.8 % (0.0-1.8) 11/17/20 03:48 Lymph # (Auto) 0.9 K/mm3 (1.2-5.4) L 11/17/20 03:48 Kidder # (Auto) 0.8 K/mm3 (0.0-0.8) 11/17/20 03:48 Eos # (Auto) 0.5 K/mm3 (0.0-0.4) H 11/17/20 03:48 Baso # (Auto) 0.1 K/mm3 (0.0-0.1) 11/17/20 03:48 Add Manual Diff Complete 10/10/20 18:18 Total Counted 100 10/10/20 18:18 Seg Neutrophils % 66.4 % (40.0-70.0) 11/17/20 03:48 Seg Neuts % (Manual) 60.0 % (40.0-70.0) 10/10/20 18:18 Band Neutrophils % 27.0 % 10/10/20 18:18 Lymphocytes % (Manual) 4.0 % (13.4-35.0) L 10/10/20 18:18 Monocytes % (Manual) 9.0 % (0.0-7.3) H 10/10/20 18:18 Eosinophils % (Manual) 4.0 % (0.0-4.3) 10/10/20 10:48 Metamyelocytes % 1.0 % 10/10/20 10:48 Nucleated RBC % Not Reportable 10/10/20 18:18 Seg Neutrophils # 4.4 K/mm3 (1.8-7.7) 11/17/20 03:48 Seg Neutrophils # Man 13.8 K/mm3 (1.8-7.7) H 10/10/20 18:18 Band Neutrophils # 6.2 K/mm3 10/10/20 18:18 Lymphocytes # (Manual) 0.9 K/mm3 (1.2-5.4) L 10/10/20 18:18 Abs React Lymphs (Man) 0.0 K/mm3 10/10/20 18:18 Monocytes # (Manual) 2.1 K/mm3 (0.0-0.8) H 10/10/20 18:18 Eosinophils # (Manual) 0.0 K/mm3 (0.0-0.4) 10/10/20 18:18 Basophils # (Manual) 0.0 K/mm3 (0.0-0.1) 10/10/20 18:18 Metamyelocytes # 0.0 K/mm3 10/10/20 18:18 Myelocytes # 0.0 K/mm3 10/10/20 18:18 Promyelocytes # 0.0 K/mm3 10/10/20 18:18 Blast Cells # 0.0 K/mm3 10/10/20 18:18 WBC Morphology Not Reportable 10/10/20 18:18 Hypersegmented Neuts Not Reportable 10/10/20 18:18 Hyposegmented Neuts Not Reportable 10/10/20 18:18 Hypogranular Neuts Not Reportable 10/10/20 18:18 Smudge Cells Not Reportable 10/10/20 18:18 Toxic Granulation Not Reportable 10/10/20 18:18 Toxic Vacuolation Not Reportable 10/10/20 18:18 Dohle Bodies Not Reportable 10/10/20 18:18 Pelger-Huet Anomaly Not Reportable 10/10/20 18:18 Dionicio Rods Not Reportable 10/10/20 18:18 Platelet Estimate Consistent w auto 10/10/20 18:18 Clumped Platelets Not Reportable 10/10/20 18:18 Plt Clumps, EDTA Not Reportable 10/10/20 18:18 Large Platelets Rare 10/10/20 18:18 Giant Platelets Rare 10/10/20 18:18 Platelet Satelliting Not Reportable 10/10/20 18:18 Plt Morphology Comment Not Reportable 10/10/20 18:18 RBC Morphology Not Reportable 10/10/20 18:18 Dimorphic RBCs Not Reportable 10/10/20 18:18 Polychromasia Not Reportable 10/10/20 18:18 Hypochromasia Not Reportable 10/10/20 18:18 Poikilocytosis Not Reportable 10/10/20 18:18 Anisocytosis Not Reportable 10/10/20 18:18 Microcytosis Not Reportable 10/10/20 18:18 Macrocytosis Not Reportable 10/10/20 18:18 Spherocytes Not Reportable 10/10/20 18:18 Pappenheimer Bodies Not Reportable 10/10/20 18:18 Sickle Cells Not Reportable 10/10/20 18:18 Target Cells Not Reportable 10/10/20 18:18 Tear Drop Cells Not Reportable 10/10/20 18:18 Ovalocytes Not Reportable 10/10/20 18:18 Helmet Cells Not Reportable 10/10/20 18:18 [place] Bodies Not Reportable 10/10/20 18:18 [place] Rings Not Reportable 10/10/20 18:18 Adelfo Cells Not Reportable 10/10/20 18:18 Bite Cells Not Reportable 10/10/20 18:18 Crenated Cell Not Reportable 10/10/20 18:18 Elliptocytes Not Reportable 10/10/20 18:18 Acanthocytes (Spur) Not Reportable 10/10/20 18:18 Rouleaux Not Reportable 10/10/20 18:18 Hemoglobin C Crystals Not Reportable 10/10/20 18:18 Schistocytes Not Reportable 10/10/20 18:18 Malaria parasites Not Reportable 10/10/20 18:18 Mauricio Bodies Not Reportable 10/10/20 18:18 Hem Pathologist Commnt No 10/10/20 18:18 PT 13.5 Sec. (12.2-14.9) 10/28/20 07:00 INR 1.05 (0.87-1.13) 10/28/20 07:00 APTT 26.9 Sec. (24.2-36.6) 10/10/20 18:18 D-Dimer 679.5 ng/mlDDU (0-234) H 10/10/20 10:48 Heparin Anti-Xa Level 0.22 U.I./ml (0.3-0.7) L 10/11/20 08:35 ABG pH 7.374 (7.320-7.450) 11/13/20 16:43 POC ABG pCO2 68.4 mmHg (32.0-48.0) H 11/13/20 16:43 ABG pCO2 55.5 mm Hg 10/16/20 05:10 POC ABG pO2 101.9 mmHg (83-108) 11/13/20 16:43 ABG pO2 104.5 mm Hg (80.0-90.0) H 10/16/20 05:10 POC ABG HCO3 39.0 11/13/20 16:43 ABG HCO3 35.1 mmol/L (20.0-26.0) H 10/16/20 05:10 ABG O2 Saturation 97.8 (0-100) 11/13/20 16:43 ABG O2 Content 10.8 (0.0-44) 10/16/20 05:10 POC ABG Base Excess 11.7 11/13/20 16:43 ABG Base Excess 9.5 mmol/L (-2.0-3.0) H 10/16/20 05:10 ABG Hemoglobin 10.0 (12.0-17.5) L 11/13/20 16:43 ABG Oxyhemoglobin 96.7 (94-98) 11/13/20 16:43 ABG Carboxyhemoglobin 1.9 % (0.0-5.0) 10/16/20 05:10 ABG Methemoglobin 0.3 (0.0-1.5) 11/13/20 16:43 ABG Sodium 140.6 mmol/L (136.0-145.0) 11/13/20 16:43 ABG Potassium 4.2 mmol/L (3.40-4.50) 11/13/20 16:43 ABG Chloride 98.0 mmol/L (98-107) 11/13/20 16:43 ABG Glucose 133 mg/dL (65-95) H 11/13/20 16:43 VBG pH 6.870 (7.320-7.420) L* 10/10/20 10:48 Oxyhemoglobin 95.3 % (95.0-99.0) 10/16/20 05:10 Carboxyhemoglobin 0.8 (0.5-1.5) 11/13/20 16:43 FiO2 35 % 10/16/20 05:10 FiO2 % 35.0 11/13/20 16:43 Sodium 142 mmol/L (137-145) 11/17/20 03:48 Potassium 4.3 mmol/L (3.6-5.0) 11/17/20 03:48 Chloride 98.0 mmol/L (98-107) 11/17/20 03:48 Carbon Dioxide 36 mmol/L (22-30) H 11/17/20 03:48 Anion Gap 12 mmol/L 11/17/20 03:48 BUN 24 mg/dL (9-20) H 11/17/20 03:48 Creatinine 1.0 mg/dL (0.8-1.3) 11/17/20 03:48 Estimated GFR > 60 ml/min 11/17/20 03:48 BUN/Creatinine Ratio 24 % 11/17/20 03:48 Glucose 126 mg/dL (75-100) H 11/17/20 03:48 POC Glucose 121 mg/dL (70-105) H 11/17/20 05:43 Hemoglobin A1c 6.0 % (4-6) 10/11/20 02:00 Lactic Acid 1.10 mmol/L (0.7-2.0) 10/13/20 04:52 Calcium 8.8 mg/dL (8.4-10.2) 11/17/20 03:48 Phosphorus 5.20 mg/dL (2.5-4.5) H D 10/17/20 03:32 Magnesium 2.30 mg/dL (1.7-2.3) 10/17/20 03:32 Ferritin 81.4 ng/mL (30.0-300.0) 10/10/20 10:48 Total Bilirubin 0.30 mg/dL (0.1-1.2) 11/17/20 03:48 AST 14 units/L (5-40) 11/17/20 03:48 ALT 9 units/L (7-56) 11/17/20 03:48 Alkaline Phosphatase 81 units/L (35-129) 11/17/20 03:48 Ammonia 214.0 umol/L (25-60) H 10/10/20 10:46 Lactate Dehydrogenase 386 units/L (91-180) H 10/10/20 10:48 Total Creatine Kinase 1192 units/L (55-170) H 10/10/20 18:18 CK-MB (CK-2) 21.7 ng/mL (0.0-4.0) H 10/10/20 18:18 CK-MB (CK-2) Rel Index 1.8 (0-4) 10/10/20 18:18 Troponin T 0.125 ng/mL (0.00-0.029) H* D 10/12/20 04:00 C-Reactive Protein 0.90 mg/dL (0.00-1.30) 10/10/20 10:48 NT-Pro-B Natriuret Pep 1187 pg/mL (0-900) H 10/10/20 10:46 Total Protein 7.2 g/dL (6.3-8.2) 11/17/20 03:48 Albumin 2.9 g/dL (3.9-5) L 11/17/20 03:48 Albumin/Globulin Ratio 0.7 % 11/17/20 03:48 Triglycerides 278 mg/dL (2-149) H 10/13/20 04:52 Cholesterol 138 mg/dL (50-199) 10/10/20 18:18 LDL Cholesterol Direct 76 mg/dL (50-130) 10/10/20 18:18 HDL Cholesterol 49 mg/dL (40-59) 10/10/20 18:18 Cholesterol/HDL Ratio 2.81 % 10/10/20 18:18 Procalcitonin 4.98 ng/mL (<0.15) 10/15/20 04:12 TSH 6.260 mlU/mL (0.270-4.200) H 10/10/20 10:46 Arterial Blood Glucose 133 mg/dL (65-95) H 11/13/20 16:43 Arterial Blood Ionized Calcium 4.7 mg/dL (4.6-5.3) 11/13/20 16:43 Urine Color Angelica (Yellow) 10/18/20 Unknown Urine Turbidity Cloudy (Clear) 10/18/20 Unknown Urine pH 5.0 (5.0-7.0) 10/18/20 Unknown Ur Specific [place] 1.017 (1.003-1.030) 10/18/20 Unknown Urine Protein 100 mg/dl mg/dL (Negative) 10/18/20 Unknown Urine Glucose (UA) Neg mg/dL (Negative) 10/18/20 Unknown Urine Ketones Neg mg/dL (Negative) 10/18/20 Unknown Urine Blood Lg (Negative) 10/18/20 Unknown Urine Nitrite Neg (Negative) 10/18/20 Unknown Urine Bilirubin Neg (Negative) 10/18/20 Unknown Urine Urobilinogen 4.0 mg/dL (<2.0) 10/18/20 Unknown Ur Leukocyte Esterase Neg (Negative) 10/18/20 Unknown Urine WBC (Auto) 115.0 /HPF (0.0-6.0) H 10/18/20 Unknown Urine RBC (Auto) 98.0 /HPF (0.0-6.0) 10/18/20 Unknown U Epithel Cells (Auto) 2.0 /HPF (0-13.0) 10/18/20 Unknown Urine WBC Clumps 3+ /HPF 10/18/20 Unknown Urine Mucus Few /HPF 10/11/20 13:30 Urine Eosinophils None seen (None Seen) 10/11/20 13:30 Urine Creatinine 93.7 mg/dL (0.1-20.0) H 10/19/20 13:14 Urine Sodium 25 mmol/L 10/19/20 13:14 Urine Urea Nitrogen 845 10/19/20 13:14 Nasal Screen MRSA (PCR) Positive (Negative) 10/20/20 13:30 Random Vancomycin 5.8 ug/mL (0-40.0) 10/21/20 06:30 Urine Opiates Screen Negative 10/10/20 10:50 Urine Methadone Screen Negative 10/10/20 10:50 Ur Barbiturates Screen Negative 10/10/20 10:50 Ur Phencyclidine Scrn Negative 10/10/20 10:50 Ur Amphetamines Screen Negative 10/10/20 10:50 U Benzodiazepines Scrn Negative 10/10/20 10:50 Urine Cocaine Screen Negative 10/10/20 10:50 U Marijuana (THC) Screen Positive 10/10/20 10:50 Drugs of Abuse Note Disclamer 10/10/20 10:50 Plasma/Serum Alcohol < 0.01 % (0-0.07) 10/10/20 10:48 Coronavirus (PCR) Negative (Negative) 10/11/20 Unknown Blood Type AB POSITIVE 10/10/20 10:48 Antibody Screen Negative 10/10/20 10:48 Tuttle/IV: Voiding Method Indwelling Catheter Active Medications - Current Medications Current Medications: Generic Name Dose Route Start Last Admin Trade Name Freq PRN Reason Stop Dose Admin Acetaminophen 650 mg 10/10/20 21:51 11/16/20 00:35 Acetaminophen 325 Mg Tab PO 650 mg Q4H PRN Administration Pain MILD(1-3)/Fever >100.5/SALVADOR Albuterol 2.5 mg 10/11/20 13:12 11/14/20 09:54 Albuterol 2.5 Mg/3 Ml Nebu IH 2.5 mg Q6HRT PRN Administration Shortness Of Breath Lipase/Protease/Amylase 1 each 10/10/20 22:18 Lipase 10,500/Protease 25,000/Amylase 43,750 (Units) Dr Santana FEEDTUBE PRN PRN For Clogged Feeding Tube Clonidine HCl 0.3 mg 10/14/20 15:00 11/11/20 14:03 Clonidine Tts 0.3 Mg/24 Hr Patch TD 0.3 mg Fr PEPITO Administration Docusate Sodium 100 mg 10/16/20 22:00 11/17/20 09:12 Docusate Sodium 100 Mg/10 Ml Oral Liqd PO Not Given BID PEPITO Fentanyl 1 applic 11/09/20 18:00 11/15/20 19:54 Fentanyl 25 Mcg/Hr Patch 72hr TD 1 applic Q72H PEPITO Administration Glycopyrrolate 1 mg 11/04/20 14:00 11/17/20 05:28 Glycopyrrolate 1 Mg Tab PO 1 mg Q8HR PEPITO Administration Heparin Sodium (Porcine) 5,000 unit 10/11/20 22:00 11/17/20 09:11 Heparin 5,000 Unit/1 Ml Vial SUB-Q 5,000 unit Q12HR PEPITO Administration Hydralazine HCl 10 mg 11/02/20 08:46 11/14/20 12:01 Hydralazine 20 Mg/1 Ml Inj IV 10 mg Q6H PRN Administration Hypertension Hydralazine HCl 100 mg 11/10/20 06:00 11/17/20 05:27 Hydralazine 100 Mg Tab PO 100 mg Q8HR PEPITO Administration Hydromorphone HCl 0.5 mg 11/01/20 20:55 11/15/20 16:17 Hydromorphone 1 Mg/1 Ml Inj IV 0.5 mg Q3H PRN Administration Pain , Severe (7-10) Hydrophilic Ointment 1 applic 10/10/20 10:34 Lip Therapy Vaseline TP Q2HR PRN Dry Lips Lansoprazole 30 mg 10/24/20 10:00 11/17/20 09:04 Lansoprazole 30 Mg Solutab FEEDTUBE 30 mg BID [facility] Administration Levetiracetam 500 mg 10/31/20 10:00 11/17/20 09:11 Levetiracetam 500 Mg/5 Ml Oral Liqd PO 500 mg BID [facility] Administration Lorazepam 1 mg 11/04/20 19:27 11/16/20 16:20 Lorazepam 2 Mg/Ml Vial IV 1 mg Q4H PRN Administration Agitation Metoprolol Tartrate 100 mg 10/21/20 14:00 11/17/20 09:10 Metoprolol Tartrate 50 Mg Tab PO 100 mg TID [facility] Administration Minoxidil 2.5 mg 11/17/20 10:00 Minoxidil 2.5 Mg Tab PO QDAY [facility] Multi-Ingred Cream/Lotion/Oil/Oint 1 applic 10/10/20 10:34 Mineral Oil/Petrolatum, White Ophth Oint 3.5 Gm OU Q4HR PRN Dry Eye(s) Nifedipine 60 mg 11/17/20 10:00 Nifedipine Xl 60 Mg Tab PO QDAY [facility] Ondansetron HCl 4 mg 10/10/20 21:51 11/01/20 20:48 Ondansetron 4 Mg/2 Ml Inj IV 4 mg Q3H PRN Administration Nausea And Vomiting Polyethylene Glycol 17 gm 10/17/20 10:00 11/17/20 09:04 Polyethylene Glycol 3350 17 Gm Powder PO 17 gm QDAY [facility] Administration Quetiapine Fumarate 100 mg 11/02/20 10:00 11/17/20 09:10 Quetiapine 100 Mg Tab PO 100 mg DAILY [facility] Administration Quetiapine Fumarate 200 mg 11/07/20 22:00 11/16/20 22:18 Quetiapine 200 Mg Tab PO 200 mg QHS [facility]PITO Administration Quetiapine Fumarate 25 mg 11/07/20 14:00 11/17/20 09:10 Quetiapine 25 Mg Tab PO 25 mg DAILY [facility]O Administration Scopolamine 1 each 10/17/20 10:00 11/16/20 09:46 Scopolamine Transdermal Patch 72 Hr TD 1 each Q3D PEPITO Administration Simple Syrup 15 ml 10/10/20 22:18 Simple Syrup 15 Ml FEEDTUBE PRN PRN Hypoglycemia Simple Syrup 30 ml 10/10/20 22:18 Simple Syrup 15 Ml FEEDTUBE PRN PRN Hypoglycemia Sodium Bicarbonate 325 mg 10/10/20 22:18 Sodium Bicarbonate 325 Mg Tab FEEDTUBE PRN PRN For Clogged Feeding Tube Sodium Chloride 10 ml 10/10/20 22:00 11/16/20 22:18 Sodium Chloride 0.9% 10 Ml Flush Syringe IV 10 ml BID PEPITO Administration Nutrition/Malnutrition Assess - Dietary Evaluation Nutrition/Malnutrition Findings: Nutrition Notes Start: 10/11/20 08:38 Freq: Status: Active Protocol: Document 11/16/20 09:53 AT (Rec: 11/16/20 10:08 AT [id number]) Co-Sign 11/16/20 09:53 Nutrition Notes Initial or Follow up Reassessment Current Diagnosis Acute Kidney Injury,Decubitus( Pressure Ulcer),Sepsis, Hypertension,Heart Failure, Respiratory Failure Other Pertinent Diagnosis GIB, pneu, MRSA [place], pulmonary edema Current Diet Promote at 80 mL/hr Labs/Tests POC BG 138 No new labs Pertinent Medications Reviewed Height 6 ft Weight 135.1 kg [place] Body Weight (kg) 80.90 BMI 40.4 Weight Status Morbidly Obese Subjective/Other Information Follow up for TF restart/ tolerance. Per chart, pt is tolerating and at goal rate. Per RN, pt still has generallized edema which may be contributing to the weight fluctuation. Per RN, pt is producing urine. Will continue to monitor for weight gain or continued edema. Percent of energy/protein needs met: 98%/74% Burn Absent Trauma Absent Difficulty In Swallowing Skin Integrity/Comment DTI to heel Current % PO Negligible Minimum of two criteria No Fluid Accumulation Mild (non-severe) #3 Nutrition Diagnosis Increased nutrient needs ( specify in comment below) Diagnosis Progress(for reassessment Continues documentation) #1 Nutrition Diagnosis Inadequate oral intake Diagnosis Progress(for reassessment Continues documentation) Is patient on ventilator? Yes Is Patient Ambulatory and/or Out of Bed No [facility] 2684.268 Kcal/Kg value to use for calculation 15 Approximate Energy Requirements Using 2026 kcal/Kg Calculation Used for Recommendations Kcal/kg Additional Notes PRO needs: >162g (>2 g/kg IBW) Fluid needs: 1 mL/kcal Nutrition Intervention Change Diet Order: Continue TF Nutrition Support: Promote at 80 ml/hr flush of 50 ml q4h. Kcal 1,920 Protein (gm) 120 Fluid (mL) 1,611 Goal #1 TF tolerance Goal #2 Meet at least 70% of protein and 100% of kcal needs via TF Anticipated Discharge Needs: TF Follow-Up By: 11/21/20 Additional Comments F/U for stable TF and weight stabilization
[2020-11-17] MEDS ORDERED: WATER FOR INJ Sterile (PF) 10 ML ONE (13:10)
[2020-11-17] MEDS: NIFEdipine XL 60 MG TAB PO SCH (13:31)
[2020-11-17] MEDS: MINOXIDIL 2.5 MG TAB PO SCH (13:39)
--- NOTE | 2020-11-17 13:54 | Progress Note ---
Assessment and Plan Cardiac arrest x3 with ROSC Severe septic and cardiogenic shock Acute respiratory failure with hypoxemia and hypercarbia Acute pulmonary edema MOE (acute kidney injury) Lactic acidosis, severe metabolic acidosis Bilateral pneumonia, aspiration pneumonia Elevated troponins - continue RTC t-piece as tolerated - continue bronchodilators with routine trach care and pulmonary hygiene per RT - no new issues otherwise, continue care as below; - continue mucomyst nebs - prn gentle diuresis - continue Seroquel for agitation control - continue contact precautions re: MRSA - completed anti-infective's per ID rec's - follow clinically re: fevers / WBC - Monitor hemodynamics closely - wean supplemental oxygen for target O2 sat's > 92% acutely - aspiration precautions - continue lung protective strategies - wean per pulmonary driven protocols otherwise - avoid nephrotoxins, renally dose all medications - continue to avoid benzodiazepine's, reduce the possibility of delirium - continue Scopolamine for secretion control - continue wound care per RN/WCN - prn analgesia per CPOT score - Maintenance of sleep-wake cycle, avoid delirium - continue enteral nutritional support at goal rate as tolerated - G.I. & VTE prophylaxis - PT/OT/ROM exercises - continue mobility protocols for pressure ulcer prophylaxis - Monitor hemodynamics closely - continue other care per attending / other consultants - discharge planning ongoing concurrently .... Re-evaluate in am & prn Subjective Date of service: 11/13/20 Principal diagnosis: Cardiac arrest; Septic Shock; Ac. hypoxemic & hypercapnic resp failure; MOE Interval history: LATE ENTRY NOTE FOR DOS 11/17/20 Patient is seen today for: Cardiac arrest with ROSC; Severe septic and cardiogenic shock; Acute respiratory failure with hypoxemia and hypercarbia; Acute pulmonary edema; MOE; Lactic acidosis; severe metabolic acidosis; Gabriel ateral pneumonia; aspiration pneumonia; Elevated troponins Seen and examined at bedside; 24hour events reviewed; nursing and respiratory care staff consulted; no adverse overnight events reported to me; resting peacefully in bed; had an episode of increased work of breathing earlier that resolved with good aggressive airway suctioning; afebrile; AMS is persistent Objective Vital Signs - 12hr 11/17/20 11/17/20 11/17/20 04:43 08:27 09:04 Temperature 99.7 F H 99.7 F H Pulse Rate 89 94 H 100 H Respiratory 20 22 Rate Blood Pressure 184/107 Blood Pressure 167/83 [Right] O2 Sat by Pulse 99 93 Oximetry 11/17/20 11/17/20 11/17/20 09:10 12:19 13:21 Temperature 99.2 F Pulse Rate 100 H 90 102 H Respiratory 24 Rate Blood Pressure 190/91 Blood Pressure [Right] O2 Sat by Pulse 100 Oximetry Constitutional: no acute distress, other (middle aged obese male with mildly increased respiratory efort at rest) Eyes: non-icteric ENT: oropharynx moist, oropharyngeal exudate pre (thick), other (midline tracheostomy) Neck: supple, no lymphadenopathy, no JVD Effort: mildly labored Ascultation: Bilateral: diminished breath sounds, rhonchi (scant) Percussion: Bilateral: not dull Cardiovascular: regular rate and rhythm, other (S1,S2) Gastrointestinal: normoactive bowel sounds, soft, non-tender, non-distended (protuberant) Integumentary: normal Extremities: no cyanosis, no edema, pulses normal, no ischemia or petechiae Neurologic: pupils equal and round, unable to assess, other (encephalopathic) Psychiatric: other (unable to assess re: AMS) CBC and BMP: 11/17/20 03:48 11/17/20 03:48 ABG, PT/INR, D-dimer: ABG ABG pH 7.374 (7.320-7.450) 11/13/20 16:43 POC ABG pCO2 68.4 mmHg (32.0-48.0) H 11/13/20 16:43 ABG pCO2 55.5 mm Hg 10/16/20 05:10 POC ABG pO2 101.9 mmHg (83-108) 11/13/20 16:43 ABG pO2 104.5 mm Hg (80.0-90.0) H 10/16/20 05:10 POC ABG HCO3 39.0 11/13/20 16:43 ABG O2 Saturation 97.8 (0-100) 11/13/20 16:43 PT/INR, D-dimer PT 13.5 Sec. (12.2-14.9) 10/28/20 07:00 INR 1.05 (0.87-1.13) 10/28/20 07:00 D-Dimer 679.5 ng/mlDDU (0-234) H 10/10/20 10:48 Abnormal lab findings: Abnormal Labs 10/10/20 10/10/20 10/10/20 10:46 10:46 10:46 WBC RBC Hgb Hct RDW Lymph % (Auto) [place] % (Auto) Eos % (Auto) Lymph # (Auto) [place] # (Auto) Eos # (Auto) Seg Neutrophils % Lymphocytes % (Manual) Monocytes % (Manual) Seg Neutrophils # Seg Neutrophils # Man Lymphocytes # (Manual) Monocytes # (Manual) D-Dimer Heparin Anti-Xa Level ABG pH POC ABG pCO2 POC ABG pO2 ABG pO2 ABG HCO3 ABG O2 Saturation ABG Base Excess ABG Hemoglobin ABG Oxyhemoglobin ABG Sodium ABG Potassium ABG Chloride ABG Glucose VBG pH Oxyhemoglobin Carboxyhemoglobin Sodium Potassium Chloride Carbon Dioxide BUN Creatinine Glucose POC Glucose Lactic Acid 13.60 H* Calcium Phosphorus Magnesium Total Bilirubin AST ALT Ammonia 214.0 H Lactate Dehydrogenase Total Creatine Kinase CK-MB (CK-2) Troponin T NT-Pro-B Natriuret Pep Total Protein Albumin Triglycerides TSH 6.260 H Arterial Blood Glucose Arterial Blood Ionized Calcium Urine pH Urine WBC (Auto) Urine Creatinine 10/10/20 10/10/20 10/10/20 10:46 10:48 10:48 WBC RBC 5.28 H Hgb 15.5 H Hct 48.8 H RDW Lymph % (Auto) [place] % (Auto) Eos % (Auto) Lymph # (Auto) [place] # (Auto) Eos # (Auto) Seg Neutrophils % Lymphocytes % (Manual) 42.0 H Monocytes % (Manual) Seg Neutrophils # Seg Neutrophils # Man Lymphocytes # (Manual) Monocytes # (Manual) D-Dimer Heparin Anti-Xa Level ABG pH POC ABG pCO2 POC ABG pO2 ABG pO2 ABG HCO3 ABG O2 Saturation ABG Base Excess ABG Hemoglobin ABG Oxyhemoglobin ABG Sodium ABG Potassium ABG Chloride ABG Glucose VBG pH Oxyhemoglobin Carboxyhemoglobin Sodium Potassium 3.3 L Chloride 91.2 L Carbon Dioxide BUN Creatinine 1.8 H Glucose 231 H POC Glucose Lactic Acid Calcium Phosphorus Magnesium Total Bilirubin AST 60 H ALT 57 H Ammonia Lactate Dehydrogenase Total Creatine Kinase CK-MB (CK-2) Troponin T NT-Pro-B Natriuret Pep 1187 H Total Protein 9.0 H Albumin Triglycerides TSH Arterial Blood Glucose Arterial Blood Ionized Calcium Urine pH Urine WBC (Auto) Urine Creatinine 10/10/20 10/10/2021 10:48 10:48 10:48 WBC RBC Hgb Hct RDW Lymph % (Auto) [place] % (Auto) Eos % (Auto) Lymph # (Auto) [place] # (Auto) Eos # (Auto) Seg Neutrophils % Lymphocytes % (Manual) Monocytes % (Manual) Seg Neutrophils # Seg Neutrophils # Man Lymphocytes # (Manual) Monocytes # (Manual) D-Dimer 679.5 H Heparin Anti-Xa Level ABG pH POC ABG pCO2 POC ABG pO2 ABG pO2 ABG HCO3 ABG O2 Saturation ABG Base Excess ABG Hemoglobin ABG Oxyhemoglobin ABG Sodium ABG Potassium ABG Chloride ABG Glucose VBG pH 6.870 L* Oxyhemoglobin Carboxyhemoglobin Sodium Potassium Chloride Carbon Dioxide BUN Creatinine Glucose POC Glucose Lactic Acid Calcium Phosphorus Magnesium Total Bilirubin AST ALT Ammonia Lactate Dehydrogenase 386 H Total Creatine Kinase CK-MB (CK-2) Troponin T NT-Pro-B Natriuret Pep Total Protein Albumin Triglycerides TSH Arterial Blood Glucose Arterial Blood Ionized Calcium Urine pH Urine WBC (Auto) Urine Creatinine 10/10/20 10/10/20 10/10/20 14:10 14:20 15:50 WBC RBC Hgb Hct RDW Lymph % (Auto) [place] % (Auto) Eos % (Auto) Lymph # (Auto) [place] # (Auto) Eos # (Auto) Seg Neutrophils % Lymphocytes % (Manual) Monocytes % (Manual) Seg Neutrophils # Seg Neutrophils # Man Lymphocytes # (Manual) Monocytes # (Manual) D-Dimer Heparin Anti-Xa Level ABG pH 7.175 L 7.247 L POC ABG pCO2 85.0 H POC ABG pO2 43.7 L ABG pO2 60.3 L ABG HCO3 32.0 H ABG O2 Saturation 86.1 L ABG Base Excess ABG Hemoglobin ABG Oxyhemoglobin 67.7 L ABG Sodium ABG Potassium ABG Chloride ABG Glucose 247 H VBG pH Oxyhemoglobin 84.4 L Carboxyhemoglobin Sodium Potassium Chloride Carbon Dioxide BUN Creatinine Glucose POC Glucose Lactic Acid 4.00 H* Calcium Phosphorus Magnesium Total Bilirubin AST ALT Ammonia Lactate Dehydrogenase Total Creatine Kinase CK-MB (CK-2) Troponin T NT-Pro-B Natriuret Pep Total Protein Albumin Triglycerides TSH Arterial Blood Glucose 247 H Arterial Blood Ionized Calcium 4.4 L Urine pH Urine WBC (Auto) Urine Creatinine 10/10/20 10/10/20 10/10/20 15:50 16:22 18:18 WBC RBC Hgb Hct RDW Lymph % (Auto) [place] % (Auto) Eos % (Auto) Lymph # (Auto) [place] # (Auto) Eos # (Auto) Seg Neutrophils % Lymphocytes % (Manual) Monocytes % (Manual) Seg Neutrophils # Seg Neutrophils # Man Lymphocytes # (Manual) Monocytes # (Manual) D-Dimer Heparin Anti-Xa Level ABG pH 7.171 L POC ABG pCO2 96.6 H POC ABG pO2 55.3 L ABG pO2 ABG HCO3 ABG O2 Saturation ABG Base Excess ABG Hemoglobin ABG Oxyhemoglobin 81.4 L ABG Sodium ABG Potassium ABG Chloride ABG Glucose 115 H VBG pH Oxyhemoglobin Carboxyhemoglobin Sodium Potassium Chloride Carbon Dioxide BUN Creatinine Glucose POC Glucose 132 H Lactic Acid Calcium Phosphorus Magnesium Total Bilirubin AST ALT Ammonia Lactate Dehydrogenase Total Creatine Kinase 1192 H CK-MB (CK-2) 21.7 H Troponin T 0.377 H* D NT-Pro-B Natriuret Pep Total Protein Albumin Triglycerides TSH Arterial Blood Glucose 115 H Arterial Blood Ionized Calcium Urine pH Urine WBC (Auto) Urine Creatinine 10/10/20 10/10/20 10/10/20 18:18 18:18 22:49 WBC 23.0 H RBC 5.12 H Hgb Hct RDW Lymph % (Auto) [place] % (Auto) Eos % (Auto) Lymph # (Auto) [place] # (Auto) Eos # (Auto) Seg Neutrophils % Lymphocytes % (Manual) 4.0 L Monocytes % (Manual) 9.0 H Seg Neutrophils # Seg Neutrophils # Man 13.8 H Lymphocytes # (Manual) 0.9 L Monocytes # (Manual) 2.1 H D-Dimer Heparin Anti-Xa Level ABG pH POC ABG pCO2 POC ABG pO2 ABG pO2 ABG HCO3 ABG O2 Saturation ABG Base Excess ABG Hemoglobin ABG Oxyhemoglobin ABG Sodium ABG Potassium ABG Chloride ABG Glucose VBG pH Oxyhemoglobin Carboxyhemoglobin Sodium 146 H Potassium Chloride Carbon Dioxide 34 H D BUN 27 H Creatinine 2.7 H Glucose 102 H POC Glucose Lactic Acid Calcium Phosphorus Magnesium Total Bilirubin AST 90 H ALT 66 H Ammonia Lactate Dehydrogenase Total Creatine Kinase CK-MB (CK-2) Troponin T 0.273 H* D NT-Pro-B Natriuret Pep Total Protein Albumin Triglycerides TSH Arterial Blood Glucose Arterial Blood Ionized Calcium Urine pH Urine WBC (Auto) Urine Creatinine 10/11/20 10/11/20 10/11/20 02:00 02:00 02:00 WBC 17.3 H RBC Hgb Hct RDW Lymph % (Auto) 3.9 L [place] % (Auto) Eos % (Auto) Lymph # (Auto) 0.7 L [place] # (Auto) Eos # (Auto) Seg Neutrophils % 93.0 H Lymphocytes % (Manual) Monocytes % (Manual) Seg Neutrophils # 16.1 H Seg Neutrophils # Man Lymphocytes # (Manual) Monocytes # (Manual) D-Dimer Heparin Anti-Xa Level ABG pH POC ABG pCO2 POC ABG pO2 ABG pO2 ABG HCO3 ABG O2 Saturation ABG Base Excess ABG Hemoglobin ABG Oxyhemoglobin ABG Sodium ABG Potassium ABG Chloride ABG Glucose VBG pH Oxyhemoglobin Carboxyhemoglobin Sodium 149 H Potassium 3.3 L Chloride 95.3 L Carbon Dioxide 37 H BUN 29 H Creatinine 2.6 H Glucose POC Glucose Lactic Acid Calcium Phosphorus Magnesium Total Bilirubin AST 80 H ALT 59 H Ammonia Lactate Dehydrogenase Total Creatine Kinase CK-MB (CK-2) Troponin T 0.201 H* D NT-Pro-B Natriuret Pep Total Protein Albumin 3.6 L Triglycerides TSH Arterial Blood Glucose Arterial Blood Ionized Calcium Urine pH Urine WBC (Auto) Urine Creatinine 10/11/20 10/11/20 10/11/20 03:51 08:35 11:15 WBC RBC Hgb Hct RDW Lymph % (Auto) [place] % (Auto) Eos % (Auto) Lymph # (Auto) [place] # (Auto) Eos # (Auto) Seg Neutrophils % Lymphocytes % (Manual) Monocytes % (Manual) Seg Neutrophils # Seg Neutrophils # Man Lymphocytes # (Manual) Monocytes # (Manual) D-Dimer Heparin Anti-Xa Level 0.22 L ABG pH 7.491 H POC ABG pCO2 57.6 H POC ABG pO2 ABG pO2 ABG HCO3 ABG O2 Saturation ABG Base Excess ABG Hemoglobin ABG Oxyhemoglobin ABG Sodium 150.0 H ABG Potassium 3.1 L ABG Chloride 96.0 L ABG Glucose 122 H VBG pH Oxyhemoglobin Carboxyhemoglobin Sodium Potassium Chloride Carbon Dioxide BUN Creatinine Glucose POC Glucose 151 H Lactic Acid Calcium Phosphorus Magnesium Total Bilirubin AST ALT Ammonia Lactate Dehydrogenase Total Creatine Kinase CK-MB (CK-2) Troponin T NT-Pro-B Natriuret Pep Total Protein Albumin Triglycerides TSH Arterial Blood Glucose 122 H Arterial Blood Ionized Calcium 3.9 L Urine pH Urine WBC (Auto) Urine Creatinine 10/11/20 10/11/20 10/11/20 13:30 13:30 13:30 WBC 15.0 H RBC Hgb Hct RDW Lymph % (Auto) [place] % (Auto) Eos % (Auto) Lymph # (Auto) [place] # (Auto) Eos # (Auto) Seg Neutrophils % Lymphocytes % (Manual) Monocytes % (Manual) Seg Neutrophils # Seg Neutrophils # Man Lymphocytes # (Manual) Monocytes # (Manual) D-Dimer Heparin Anti-Xa Level ABG pH POC ABG pCO2 POC ABG pO2 ABG pO2 ABG HCO3 ABG O2 Saturation ABG Base Excess ABG Hemoglobin ABG Oxyhemoglobin ABG Sodium ABG Potassium ABG Chloride ABG Glucose VBG pH Oxyhemoglobin Carboxyhemoglobin Sodium Potassium Chloride Carbon Dioxide BUN Creatinine Glucose POC Glucose Lactic Acid Calcium Phosphorus Magnesium Total Bilirubin AST ALT Ammonia Lactate Dehydrogenase Total Creatine Kinase CK-MB (CK-2) Troponin T NT-Pro-B Natriuret Pep Total Protein Albumin Triglycerides TSH Arterial Blood Glucose Arterial Blood Ionized Calcium Urine pH 9.0 H Urine WBC (Auto) 18.0 H Urine Creatinine 80.5 H 10/11/20 10/11/20 10/12/20 17:17 23:14 03:53 WBC RBC Hgb Hct RDW Lymph % (Auto) [place] % (Auto) Eos % (Auto) Lymph # (Auto) [place] # (Auto) Eos # (Auto) Seg Neutrophils % Lymphocytes % (Manual) Monocytes % (Manual) Seg Neutrophils # Seg Neutrophils # Man Lymphocytes # (Manual) Monocytes # (Manual) D-Dimer Heparin Anti-Xa Level ABG pH 7.545 H POC ABG pCO2 54.6 H POC ABG pO2 231.9 H ABG pO2 ABG HCO3 ABG O2 Saturation ABG Base Excess ABG Hemoglobin ABG Oxyhemoglobin 98.5 H ABG Sodium 150.5 H ABG Potassium 3.2 L ABG Chloride 96.0 L ABG Glucose 148 H VBG pH Oxyhemoglobin Carboxyhemoglobin Sodium Potassium Chloride Carbon Dioxide BUN Creatinine Glucose POC Glucose 121 H 135 H Lactic Acid Calcium Phosphorus Magnesium Total Bilirubin AST ALT Ammonia Lactate Dehydrogenase Total Creatine Kinase CK-MB (CK-2) Troponin T NT-Pro-B Natriuret Pep Total Protein Albumin Triglycerides TSH Arterial Blood Glucose 148 H Arterial Blood Ionized Calcium 3.8 L Urine pH Urine WBC (Auto) Urine Creatinine 10/12/20 10/12/20 10/12/20 04:00 05:10 05:12 WBC 14.3 H RBC Hgb 11.6 L Hct 35.2 L RDW Lymph % (Auto) [place] % (Auto) Eos % (Auto) Lymph # (Auto) [place] # (Auto) Eos # (Auto) Seg Neutrophils % Lymphocytes % (Manual) Monocytes % (Manual) Seg Neutrophils # Seg Neutrophils # Man Lymphocytes # (Manual) Monocytes # (Manual) D-Dimer Heparin Anti-Xa Level ABG pH POC ABG pCO2 POC ABG pO2 ABG pO2 ABG HCO3 ABG O2 Saturation ABG Base Excess ABG Hemoglobin ABG Oxyhemoglobin ABG Sodium ABG Potassium ABG Chloride ABG Glucose VBG pH Oxyhemoglobin Carboxyhemoglobin Sodium 155 H Potassium 3.3 L Chloride 97.9 L Carbon Dioxide 47 H* D BUN 50 H Creatinine 3.4 H Glucose 146 H POC Glucose 137 H Lactic Acid Calcium 8.0 L Phosphorus Magnesium Total Bilirubin AST ALT Ammonia Lactate Dehydrogenase Total Creatine Kinase CK-MB (CK-2) Troponin T 0.125 H* D NT-Pro-B Natriuret Pep Total Protein Albumin Triglycerides TSH Arterial Blood Glucose Arterial Blood Ionized Calcium Urine pH Urine WBC (Auto) Urine Creatinine 10/12/20 10/12/20 10/12/20 11:39 16:01 19:49 WBC RBC Hgb Hct RDW Lymph % (Auto) [place] % (Auto) Eos % (Auto) Lymph # (Auto) [place] # (Auto) Eos # (Auto) Seg Neutrophils % Lymphocytes % (Manual) Monocytes % (Manual) Seg Neutrophils # Seg Neutrophils # Man Lymphocytes # (Manual) Monocytes # (Manual) D-Dimer Heparin Anti-Xa Level ABG pH POC ABG pCO2 POC ABG pO2 ABG pO2 ABG HCO3 ABG O2 Saturation ABG Base Excess ABG Hemoglobin ABG Oxyhemoglobin ABG Sodium ABG Potassium ABG Chloride ABG Glucose VBG pH Oxyhemoglobin Carboxyhemoglobin Sodium 157 H Potassium 3.3 L Chloride Carbon Dioxide 47 H* BUN 52 H Creatinine 3.0 H Glucose 137 H POC Glucose 138 H 119 H Lactic Acid Calcium 8.0 L Phosphorus Magnesium Total Bilirubin AST ALT Ammonia Lactate Dehydrogenase Total Creatine Kinase CK-MB (CK-2) Troponin T NT-Pro-B Natriuret Pep Total Protein Albumin Triglycerides TSH Arterial Blood Glucose Arterial Blood Ionized Calcium Urine pH Urine WBC (Auto) Urine Creatinine 10/12/20 10/13/20 10/13/20 23:37 02:28 04:52 WBC RBC Hgb Hct RDW Lymph % (Auto) [place] % (Auto) Eos % (Auto) Lymph # (Auto) [place] # (Auto) Eos # (Auto) Seg Neutrophils % Lymphocytes % (Manual) Monocytes % (Manual) Seg Neutrophils # Seg Neutrophils # Man Lymphocytes # (Manual) Monocytes # (Manual) D-Dimer Heparin Anti-Xa Level ABG pH 7.485 H POC ABG pCO2 57.1 H POC ABG pO2 ABG pO2 ABG HCO3 ABG O2 Saturation ABG Base Excess ABG Hemoglobin ABG Oxyhemoglobin ABG Sodium 152.4 H ABG Potassium ABG Chloride ABG Glucose 129 H VBG pH Oxyhemoglobin Carboxyhemoglobin Sodium 155 H Potassium Chloride Carbon Dioxide 45 H* BUN 52 H Creatinine 2.7 H Glucose 121 H POC Glucose 131 H Lactic Acid Calcium Phosphorus Magnesium 2.40 H Total Bilirubin AST ALT Ammonia Lactate Dehydrogenase Total Creatine Kinase CK-MB (CK-2) Troponin T NT-Pro-B Natriuret Pep Total Protein Albumin Triglycerides 278 H TSH Arterial Blood Glucose 129 H Arterial Blood Ionized Calcium 4.1 L Urine pH Urine WBC (Auto) Urine Creatinine 10/13/20 10/13/20 10/13/20 04:52 05:13 11:37 WBC 14.7 H RBC Hgb 11.7 L Hct RDW 15.8 H Lymph % (Auto) [place] % (Auto) Eos % (Auto) Lymph # (Auto) [place] # (Auto) Eos # (Auto) Seg Neutrophils % Lymphocytes % (Manual) Monocytes % (Manual) Seg Neutrophils # Seg Neutrophils # Man Lymphocytes # (Manual) Monocytes # (Manual) D-Dimer Heparin Anti-Xa Level ABG pH POC ABG pCO2 POC ABG pO2 ABG pO2 ABG HCO3 ABG O2 Saturation ABG Base Excess ABG Hemoglobin ABG Oxyhemoglobin ABG Sodium ABG Potassium ABG Chloride ABG Glucose VBG pH Oxyhemoglobin Carboxyhemoglobin Sodium Potassium Chloride Carbon Dioxide BUN Creatinine Glucose POC Glucose 116 H 116 H Lactic Acid Calcium Phosphorus Magnesium Total Bilirubin AST ALT Ammonia Lactate Dehydrogenase Total Creatine Kinase CK-MB (CK-2) Troponin T NT-Pro-B Natriuret Pep Total Protein Albumin Triglycerides TSH Arterial Blood Glucose Arterial Blood Ionized Calcium Urine pH Urine WBC (Auto) Urine Creatinine 10/13/20 10/14/20 10/14/20 17:50 03:45 04:46 WBC 11.1 H RBC Hgb Hct RDW 15.3 H Lymph % (Auto) [place] % (Auto) Eos % (Auto) Lymph # (Auto) [place] # (Auto) Eos # (Auto) Seg Neutrophils % Lymphocytes % (Manual) Monocytes % (Manual) Seg Neutrophils # Seg Neutrophils # Man Lymphocytes # (Manual) Monocytes # (Manual) D-Dimer Heparin Anti-Xa Level ABG pH POC ABG pCO2 59.6 H POC ABG pO2 ABG pO2 ABG HCO3 ABG O2 Saturation ABG Base Excess ABG Hemoglobin ABG Oxyhemoglobin ABG Sodium 151.4 H ABG Potassium 3.3 L ABG Chloride ABG Glucose 138 H VBG pH Oxyhemoglobin Carboxyhemoglobin 1.6 H Sodium Potassium Chloride Carbon Dioxide BUN Creatinine Glucose POC Glucose 140 H Lactic Acid Calcium Phosphorus Magnesium Total Bilirubin AST ALT Ammonia Lactate Dehydrogenase Total Creatine Kinase CK-MB (CK-2) Troponin T NT-Pro-B Natriuret Pep Total Protein Albumin Triglycerides TSH Arterial Blood Glucose 138 H Arterial Blood Ionized Calcium 4.5 L Urine pH Urine WBC (Auto) Urine Creatinine 10/14/20 10/14/20 10/14/20 04:46 05:10 11:11 WBC RBC Hgb Hct RDW Lymph % (Auto) [place] % (Auto) Eos % (Auto) Lymph # (Auto) [place] # (Auto) Eos # (Auto) Seg Neutrophils % Lymphocytes % (Manual) Monocytes % (Manual) Seg Neutrophils # Seg Neutrophils # Man Lymphocytes # (Manual) Monocytes # (Manual) D-Dimer Heparin Anti-Xa Level ABG pH POC ABG pCO2 POC ABG pO2 ABG pO2 ABG HCO3 ABG O2 Saturation ABG Base Excess ABG Hemoglobin ABG Oxyhemoglobin ABG Sodium ABG Potassium ABG Chloride ABG Glucose VBG pH Oxyhemoglobin Carboxyhemoglobin Sodium 152 H Potassium 3.5 L Chloride Carbon Dioxide 38 H D BUN 46 H Creatinine 2.3 H Glucose 127 H POC Glucose 116 H 114 H Lactic Acid Calcium Phosphorus Magnesium Total Bilirubin AST ALT Ammonia Lactate Dehydrogenase Total Creatine Kinase CK-MB (CK-2) Troponin T NT-Pro-B Natriuret Pep Total Protein Albumin Triglycerides TSH Arterial Blood Glucose Arterial Blood Ionized Calcium Urine pH Urine WBC (Auto) Urine Creatinine 10/14/20 10/14/20 10/15/20 18:53 23:23 04:12 WBC RBC Hgb Hct RDW Lymph % (Auto) [place] % (Auto) Eos % (Auto) Lymph # (Auto) [place] # (Auto) Eos # (Auto) Seg Neutrophils % Lymphocytes % (Manual) Monocytes % (Manual) Seg Neutrophils # Seg Neutrophils # Man Lymphocytes # (Manual) Monocytes # (Manual) D-Dimer Heparin Anti-Xa Level ABG pH POC ABG pCO2 POC ABG pO2 ABG pO2 ABG HCO3 ABG O2 Saturation ABG Base Excess ABG Hemoglobin ABG Oxyhemoglobin ABG Sodium ABG Potassium ABG Chloride ABG Glucose VBG pH Oxyhemoglobin Carboxyhemoglobin Sodium 149 H Potassium 3.2 L Chloride Carbon Dioxide 37 H BUN 40 H Creatinine 2.0 H Glucose 124 H POC Glucose 128 H 113 H Lactic Acid Calcium Phosphorus Magnesium Total Bilirubin AST ALT Ammonia Lactate Dehydrogenase Total Creatine Kinase CK-MB (CK-2) Troponin T NT-Pro-B Natriuret Pep Total Protein Albumin Triglycerides TSH Arterial Blood Glucose Arterial Blood Ionized Calcium Urine pH Urine WBC (Auto) Urine Creatinine 10/15/20 10/15/20 10/15/20 04:22 11:39 17:36 WBC RBC Hgb Hct RDW Lymph % (Auto) [place] % (Auto) Eos % (Auto) Lymph # (Auto) [place] # (Auto) Eos # (Auto) Seg Neutrophils % Lymphocytes % (Manual) Monocytes % (Manual) Seg Neutrophils # Seg Neutrophils # Man Lymphocytes # (Manual) Monocytes # (Manual) D-Dimer Heparin Anti-Xa Level ABG pH POC ABG pCO2 POC ABG pO2 ABG pO2 115.0 H ABG HCO3 38.1 H ABG O2 Saturation ABG Base Excess 11.3 H ABG Hemoglobin 11.0 L ABG Oxyhemoglobin ABG Sodium ABG Potassium ABG Chloride ABG Glucose VBG pH Oxyhemoglobin Carboxyhemoglobin Sodium Potassium Chloride Carbon Dioxide BUN Creatinine Glucose POC Glucose 123 H 118 H Lactic Acid Calcium Phosphorus Magnesium Total Bilirubin AST ALT Ammonia Lactate Dehydrogenase Total Creatine Kinase CK-MB (CK-2) Troponin T NT-Pro-B Natriuret Pep Total Protein Albumin Triglycerides TSH Arterial Blood Glucose Arterial Blood Ionized Calcium Urine pH Urine WBC (Auto) Urine Creatinine 0410/16/20 10/16/20 23:18 03:13 05:10 WBC RBC Hgb Hct RDW Lymph % (Auto) [place] % (Auto) Eos % (Auto) Lymph # (Auto) [place] # (Auto) Eos # (Auto) Seg Neutrophils % Lymphocytes % (Manual) Monocytes % (Manual) Seg Neutrophils # Seg Neutrophils # Man Lymphocytes # (Manual) Monocytes # (Manual) D-Dimer Heparin Anti-Xa Level ABG pH POC ABG pCO2 POC ABG pO2 ABG pO2 104.5 H ABG HCO3 35.1 H ABG O2 Saturation ABG Base Excess 9.5 H ABG Hemoglobin 7.9 L ABG Oxyhemoglobin ABG Sodium ABG Potassium ABG Chloride ABG Glucose VBG pH Oxyhemoglobin Carboxyhemoglobin Sodium Potassium 3.3 L Chloride Carbon Dioxide 33 H BUN 37 H Creatinine 1.4 H Glucose 148 H POC Glucose 135 H Lactic Acid Calcium Phosphorus Magnesium 2.40 H Total Bilirubin AST ALT Ammonia Lactate Dehydrogenase Total Creatine Kinase CK-MB (CK-2) Troponin T NT-Pro-B Natriuret Pep Total Protein Albumin Triglycerides TSH Arterial Blood Glucose Arterial Blood Ionized Calcium Urine pH Urine WBC (Auto) Urine Creatinine 10/16/20 10/16/20 10/16/20 06:36 11:08 17:07 WBC RBC Hgb Hct RDW Lymph % (Auto) [place] % (Auto) Eos % (Auto) Lymph # (Auto) [place] # (Auto) Eos # (Auto) Seg Neutrophils % Lymphocytes % (Manual) Monocytes % (Manual) Seg Neutrophils # Seg Neutrophils # Man Lymphocytes # (Manual) Monocytes # (Manual) D-Dimer Heparin Anti-Xa Level ABG pH POC ABG pCO2 POC ABG pO2 ABG pO2 ABG HCO3 ABG O2 Saturation ABG Base Excess ABG Hemoglobin ABG Oxyhemoglobin ABG Sodium ABG Potassium ABG Chloride ABG Glucose VBG pH Oxyhemoglobin Carboxyhemoglobin Sodium Potassium Chloride Carbon Dioxide BUN Creatinine Glucose POC Glucose 150 H 111 H 132 H Lactic Acid Calcium Phosphorus Magnesium Total Bilirubin AST ALT Ammonia Lactate Dehydrogenase Total Creatine Kinase CK-MB (CK-2) Troponin T NT-Pro-B Natriuret Pep Total Protein Albumin Triglycerides TSH Arterial Blood Glucose Arterial Blood Ionized Calcium Urine pH Urine WBC (Auto) Urine Creatinine 10/16/20 10/17/20 10/17/20 23:38 03:32 03:32 WBC RBC Hgb Hct RDW Lymph % (Auto) [place] % (Auto) Eos % (Auto) Lymph # (Auto) [place] # (Auto) Eos # (Auto) Seg Neutrophils % Lymphocytes % (Manual) Monocytes % (Manual) Seg Neutrophils # Seg Neutrophils # Man Lymphocytes # (Manual) Monocytes # (Manual) D-Dimer Heparin Anti-Xa Level ABG pH POC ABG pCO2 POC ABG pO2 ABG pO2 ABG HCO3 ABG O2 Saturation ABG Base Excess ABG Hemoglobin ABG Oxyhemoglobin ABG Sodium ABG Potassium ABG Chloride ABG Glucose VBG pH Oxyhemoglobin Carboxyhemoglobin Sodium 146 H Potassium Chloride Carbon Dioxide 32 H BUN 57 H Creatinine 2.4 H D Glucose 124 H POC Glucose 117 H Lactic Acid Calcium Phosphorus 5.20 H D Magnesium Total Bilirubin AST ALT Ammonia Lactate Dehydrogenase Total Creatine Kinase CK-MB (CK-2) Troponin T NT-Pro-B Natriuret Pep Total Protein Albumin Triglycerides TSH Arterial Blood Glucose Arterial Blood Ionized Calcium Urine pH Urine WBC (Auto) Urine Creatinine 10/17/20 10/17/20 10/18/20 05:10 17:33 00:13 WBC RBC Hgb Hct RDW Lymph % (Auto) [place] % (Auto) Eos % (Auto) Lymph # (Auto) [place] # (Auto) Eos # (Auto) Seg Neutrophils % Lymphocytes % (Manual) Monocytes % (Manual) Seg Neutrophils # Seg Neutrophils # Man Lymphocytes # (Manual) Monocytes # (Manual) D-Dimer Heparin Anti-Xa Level ABG pH POC ABG pCO2 POC ABG pO2 ABG pO2 ABG HCO3 ABG O2 Saturation ABG Base Excess ABG Hemoglobin ABG Oxyhemoglobin ABG Sodium ABG Potassium ABG Chloride ABG Glucose VBG pH Oxyhemoglobin Carboxyhemoglobin Sodium Potassium Chloride Carbon Dioxide BUN Creatinine Glucose POC Glucose 122 H 121 H 23 L Lactic Acid Calcium Phosphorus Magnesium Total Bilirubin AST ALT Ammonia Lactate Dehydrogenase Total Creatine Kinase CK-MB (CK-2) Troponin T NT-Pro-B Natriuret Pep Total Protein Albumin Triglycerides TSH Arterial Blood Glucose Arterial Blood Ionized Calcium Urine pH Urine WBC (Auto) Urine Creatinine 10/18/20 10/18/20 10/18/20 00:16 03:27 03:27 WBC RBC Hgb 11.7 L Hct RDW Lymph % (Auto) [place] % (Auto) Eos % (Auto) Lymph # (Auto) [place] # (Auto) Eos # (Auto) Seg Neutrophils % Lymphocytes % (Manual) Monocytes % (Manual) Seg Neutrophils # Seg Neutrophils # Man Lymphocytes # (Manual) Monocytes # (Manual) D-Dimer Heparin Anti-Xa Level ABG pH POC ABG pCO2 POC ABG pO2 ABG pO2 ABG HCO3 ABG O2 Saturation ABG Base Excess ABG Hemoglobin ABG Oxyhemoglobin ABG Sodium ABG Potassium ABG Chloride ABG Glucose VBG pH Oxyhemoglobin Carboxyhemoglobin Sodium Potassium Chloride 97.6 L Carbon Dioxide BUN 90 H Creatinine 3.3 H Glucose 146 H POC Glucose 134 H Lactic Acid Calcium Phosphorus Magnesium Total Bilirubin 1.70 H AST ALT Ammonia Lactate Dehydrogenase Total Creatine Kinase CK-MB (CK-2) Troponin T NT-Pro-B Natriuret Pep Total Protein Albumin 3.1 L Triglycerides TSH Arterial Blood Glucose Arterial Blood Ionized Calcium Urine pH Urine WBC (Auto) Urine Creatinine 10/18/20 10/18/20 10/18/20 05:09 11:19 17:15 WBC RBC Hgb Hct RDW Lymph % (Auto) [place] % (Auto) Eos % (Auto) Lymph # (Auto) [place] # (Auto) Eos # (Auto) Seg Neutrophils % Lymphocytes % (Manual) Monocytes % (Manual) Seg Neutrophils # Seg Neutrophils # Man Lymphocytes # (Manual) Monocytes # (Manual) D-Dimer Heparin Anti-Xa Level ABG pH POC ABG pCO2 POC ABG pO2 ABG pO2 ABG HCO3 ABG O2 Saturation ABG Base Excess ABG Hemoglobin ABG Oxyhemoglobin ABG Sodium ABG Potassium ABG Chloride ABG Glucose VBG pH Oxyhemoglobin Carboxyhemoglobin Sodium Potassium Chloride Carbon Dioxide BUN Creatinine Glucose POC Glucose 144 H 145 H 151 H Lactic Acid Calcium Phosphorus Magnesium Total Bilirubin AST ALT Ammonia Lactate Dehydrogenase Total Creatine Kinase CK-MB (CK-2) Troponin T NT-Pro-B Natriuret Pep Total Protein Albumin Triglycerides TSH Arterial Blood Glucose Arterial Blood Ionized Calcium Urine pH Urine WBC (Auto) Urine Creatinine 10/18/20 10/18/20 10/19/20 23:16 Unknown 04:55 WBC RBC Hgb Hct RDW Lymph % (Auto) [place] % (Auto) Eos % (Auto) Lymph # (Auto) [place] # (Auto) Eos # (Auto) Seg Neutrophils % Lymphocytes % (Manual) Monocytes % (Manual) Seg Neutrophils # Seg Neutrophils # Man Lymphocytes # (Manual) Monocytes # (Manual) D-Dimer Heparin Anti-Xa Level ABG pH POC ABG pCO2 POC ABG pO2 ABG pO2 ABG HCO3 ABG O2 Saturation ABG Base Excess ABG Hemoglobin ABG Oxyhemoglobin ABG Sodium ABG Potassium ABG Chloride ABG Glucose VBG pH Oxyhemoglobin Carboxyhemoglobin Sodium Potassium Chloride Carbon Dioxide BUN 104 H Creatinine 3.1 H Glucose 139 H POC Glucose 123 H Lactic Acid Calcium Phosphorus Magnesium Total Bilirubin AST ALT Ammonia Lactate Dehydrogenase Total Creatine Kinase CK-MB (CK-2) Troponin T NT-Pro-B Natriuret Pep Total Protein Albumin Triglycerides TSH Arterial Blood Glucose Arterial Blood Ionized Calcium Urine pH Urine WBC (Auto) 115.0 H Urine Creatinine 10/19/20 10/19/20 10/19/20 04:55 11:35 13:14 WBC 15.1 H RBC Hgb 11.1 L Hct 34.4 L RDW Lymph % (Auto) 4.2 L [place] % (Auto) 11.9 H Eos % (Auto) Lymph # (Auto) 0.6 L [place] # (Auto) 1.8 H Eos # (Auto) Seg Neutrophils % 82.0 H Lymphocytes % (Manual) Monocytes % (Manual) Seg Neutrophils # 12.4 H Seg Neutrophils # Man Lymphocytes # (Manual) Monocytes # (Manual) D-Dimer Heparin Anti-Xa Level ABG pH POC ABG pCO2 POC ABG pO2 ABG pO2 ABG HCO3 ABG O2 Saturation ABG Base Excess ABG Hemoglobin ABG Oxyhemoglobin ABG Sodium ABG Potassium ABG Chloride ABG Glucose VBG pH Oxyhemoglobin Carboxyhemoglobin Sodium Potassium Chloride Carbon Dioxide BUN Creatinine Glucose POC Glucose 136 H Lactic Acid Calcium Phosphorus Magnesium Total Bilirubin AST ALT Ammonia Lactate Dehydrogenase Total Creatine Kinase CK-MB (CK-2) Troponin T NT-Pro-B Natriuret Pep Total Protein Albumin Triglycerides TSH Arterial Blood Glucose Arterial Blood Ionized Calcium Urine pH Urine WBC (Auto) Urine Creatinine 93.7 H 10/19/20 10/19/20 10/20/20 17:53 23:39 04:30 WBC RBC Hgb Hct RDW Lymph % (Auto) [place] % (Auto) Eos % (Auto) Lymph # (Auto) [place] # (Auto) Eos # (Auto) Seg Neutrophils % Lymphocytes % (Manual) Monocytes % (Manual) Seg Neutrophils # Seg Neutrophils # Man Lymphocytes # (Manual) Monocytes # (Manual) D-Dimer Heparin Anti-Xa Level ABG pH POC ABG pCO2 POC ABG pO2 ABG pO2 ABG HCO3 ABG O2 Saturation ABG Base Excess ABG Hemoglobin ABG Oxyhemoglobin ABG Sodium ABG Potassium ABG Chloride ABG Glucose VBG pH Oxyhemoglobin Carboxyhemoglobin Sodium Potassium Chloride Carbon Dioxide BUN 104 H Creatinine 2.8 H Glucose 151 H POC Glucose 137 H 133 H Lactic Acid Calcium Phosphorus Magnesium Total Bilirubin AST ALT Ammonia Lactate Dehydrogenase Total Creatine Kinase CK-MB (CK-2) Troponin T NT-Pro-B Natriuret Pep Total Protein Albumin Triglycerides TSH Arterial Blood Glucose Arterial Blood Ionized Calcium Urine pH Urine WBC (Auto) Urine Creatinine 10/20/20 10/20/20 10/20/20 04:30 05:38 11:34 WBC 17.9 H RBC Hgb 11.7 L Hct RDW Lymph % (Auto) [place] % (Auto) Eos % (Auto) Lymph # (Auto) [place] # (Auto) Eos # (Auto) Seg Neutrophils % Lymphocytes % (Manual) Monocytes % (Manual) Seg Neutrophils # Seg Neutrophils # Man Lymphocytes # (Manual) Monocytes # (Manual) D-Dimer Heparin Anti-Xa Level ABG pH POC ABG pCO2 POC ABG pO2 ABG pO2 ABG HCO3 ABG O2 Saturation ABG Base Excess ABG Hemoglobin ABG Oxyhemoglobin ABG Sodium ABG Potassium ABG Chloride ABG Glucose VBG pH Oxyhemoglobin Carboxyhemoglobin Sodium Potassium Chloride Carbon Dioxide BUN Creatinine Glucose POC Glucose 164 H 148 H Lactic Acid Calcium Phosphorus Magnesium Total Bilirubin AST ALT Ammonia Lactate Dehydrogenase Total Creatine Kinase CK-MB (CK-2) Troponin T NT-Pro-B Natriuret Pep Total Protein Albumin Triglycerides TSH Arterial Blood Glucose Arterial Blood Ionized Calcium Urine pH Urine WBC (Auto) Urine Creatinine 10/20/20 10/20/20 10/20/20 17:40 20:20 23:29 WBC RBC Hgb Hct RDW Lymph % (Auto) [place] % (Auto) Eos % (Auto) Lymph # (Auto) [place] # (Auto) Eos # (Auto) Seg Neutrophils % Lymphocytes % (Manual) Monocytes % (Manual) Seg Neutrophils # Seg Neutrophils # Man Lymphocytes # (Manual) Monocytes # (Manual) D-Dimer Heparin Anti-Xa Level ABG pH 7.292 L POC ABG pCO2 68.5 H POC ABG pO2 ABG pO2 ABG HCO3 ABG O2 Saturation ABG Base Excess ABG Hemoglobin 11.6 L ABG Oxyhemoglobin ABG Sodium ABG Potassium ABG Chloride ABG Glucose 145 H VBG pH Oxyhemoglobin Carboxyhemoglobin Sodium Potassium Chloride Carbon Dioxide BUN Creatinine Glucose POC Glucose 130 H 136 H Lactic Acid Calcium Phosphorus Magnesium Total Bilirubin AST ALT Ammonia Lactate Dehydrogenase Total Creatine Kinase CK-MB (CK-2) Troponin T NT-Pro-B Natriuret Pep Total Protein Albumin Triglycerides TSH Arterial Blood Glucose 145 H Arterial Blood Ionized Calcium Urine pH Urine WBC (Auto) Urine Creatinine 10/21/20 10/21/20 10/21/20 04:20 06:26 06:30 WBC RBC Hgb Hct RDW Lymph % (Auto) [place] % (Auto) Eos % (Auto) Lymph # (Auto) [place] # (Auto) Eos # (Auto) Seg Neutrophils % Lymphocytes % (Manual) Monocytes % (Manual) Seg Neutrophils # Seg Neutrophils # Man Lymphocytes # (Manual) Monocytes # (Manual) D-Dimer Heparin Anti-Xa Level ABG pH 7.262 L POC ABG pCO2 72.4 H POC ABG pO2 81.6 L ABG pO2 ABG HCO3 ABG O2 Saturation ABG Base Excess ABG Hemoglobin 11.6 L ABG Oxyhemoglobin ABG Sodium ABG Potassium ABG Chloride ABG Glucose 140 H VBG pH Oxyhemoglobin Carboxyhemoglobin Sodium Potassium Chloride Carbon Dioxide 33 H BUN 104 H Creatinine 2.9 H Glucose 153 H POC Glucose 128 H Lactic Acid Calcium Phosphorus Magnesium Total Bilirubin AST ALT Ammonia Lactate Dehydrogenase Total Creatine Kinase CK-MB (CK-2) Troponin T NT-Pro-B Natriuret Pep Total Protein Albumin Triglycerides TSH Arterial Blood Glucose 140 H Arterial Blood Ionized Calcium Urine pH Urine WBC (Auto) Urine Creatinine 10/21/20 10/21/20 10/21/20 06:30 11:24 17:21 WBC 13.3 H RBC Hgb 10.7 L Hct 32.7 L RDW Lymph % (Auto) [place] % (Auto) Eos % (Auto) Lymph # (Auto) [place] # (Auto) Eos # (Auto) Seg Neutrophils % Lymphocytes % (Manual) Monocytes % (Manual) Seg Neutrophils # Seg Neutrophils # Man Lymphocytes # (Manual) Monocytes # (Manual) D-Dimer Heparin Anti-Xa Level ABG pH POC ABG pCO2 POC ABG pO2 ABG pO2 ABG HCO3 ABG O2 Saturation ABG Base Excess ABG Hemoglobin ABG Oxyhemoglobin ABG Sodium ABG Potassium ABG Chloride ABG Glucose VBG pH Oxyhemoglobin Carboxyhemoglobin Sodium Potassium Chloride Carbon Dioxide BUN Creatinine Glucose POC Glucose 178 H 138 H Lactic Acid Calcium Phosphorus Magnesium Total Bilirubin AST ALT Ammonia Lactate Dehydrogenase Total Creatine Kinase CK-MB (CK-2) Troponin T NT-Pro-B Natriuret Pep Total Protein Albumin Triglycerides TSH Arterial Blood Glucose Arterial Blood Ionized Calcium Urine pH Urine WBC (Auto) Urine Creatinine 10/22/20 10/22/20 10/22/20 00:05 04:30 06:15 WBC RBC Hgb Hct RDW Lymph % (Auto) [place] % (Auto) Eos % (Auto) Lymph # (Auto) [place] # (Auto) Eos # (Auto) Seg Neutrophils % Lymphocytes % (Manual) Monocytes % (Manual) Seg Neutrophils # Seg Neutrophils # Man Lymphocytes # (Manual) Monocytes # (Manual) D-Dimer Heparin Anti-Xa Level ABG pH 7.225 L POC ABG pCO2 76.6 H POC ABG pO2 ABG pO2 ABG HCO3 ABG O2 Saturation ABG Base Excess ABG Hemoglobin 11.1 L ABG Oxyhemoglobin ABG Sodium ABG Potassium ABG Chloride ABG Glucose 151 H VBG pH Oxyhemoglobin Carboxyhemoglobin Sodium Potassium Chloride Carbon Dioxide 32 H BUN 103 H Creatinine 2.7 H Glucose 151 H POC Glucose 135 H Lactic Acid Calcium Phosphorus Magnesium Total Bilirubin AST ALT Ammonia Lactate Dehydrogenase Total Creatine Kinase CK-MB (CK-2) Troponin T NT-Pro-B Natriuret Pep Total Protein Albumin Triglycerides TSH Arterial Blood Glucose 151 H Arterial Blood Ionized Calcium Urine pH Urine WBC (Auto) Urine Creatinine 10/22/20 10/22/20 10/22/20 06:18 11:34 11:44 WBC RBC Hgb Hct RDW Lymph % (Auto) [place] % (Auto) Eos % (Auto) Lymph # (Auto) [place] # (Auto) Eos # (Auto) Seg Neutrophils % Lymphocytes % (Manual) Monocytes % (Manual) Seg Neutrophils # Seg Neutrophils # Man Lymphocytes # (Manual) Monocytes # (Manual) D-Dimer Heparin Anti-Xa Level ABG pH 7.278 L POC ABG pCO2 67.8 H POC ABG pO2 ABG pO2 ABG HCO3 ABG O2 Saturation ABG Base Excess ABG Hemoglobin 10.2 L ABG Oxyhemoglobin ABG Sodium ABG Potassium ABG Chloride ABG Glucose 172 H VBG pH Oxyhemoglobin Carboxyhemoglobin Sodium Potassium Chloride Carbon Dioxide BUN Creatinine Glucose POC Glucose 137 H 147 H Lactic Acid Calcium Phosphorus Magnesium Total Bilirubin AST ALT Ammonia Lactate Dehydrogenase Total Creatine Kinase CK-MB (CK-2) Troponin T NT-Pro-B Natriuret Pep Total Protein Albumin Triglycerides TSH Arterial Blood Glucose 172 H Arterial Blood Ionized Calcium Urine pH Urine WBC (Auto) Urine Creatinine 10/22/20 10/22/20 10/23/20 17:40 23:55 05:11 WBC RBC Hgb Hct RDW Lymph % (Auto) [place] % (Auto) Eos % (Auto) Lymph # (Auto) [place] # (Auto) Eos # (Auto) Seg Neutrophils % Lymphocytes % (Manual) Monocytes % (Manual) Seg Neutrophils # Seg Neutrophils # Man Lymphocytes # (Manual) Monocytes # (Manual) D-Dimer Heparin Anti-Xa Level ABG pH POC ABG pCO2 63.6 H POC ABG pO2 81.2 L ABG pO2 ABG HCO3 ABG O2 Saturation ABG Base Excess ABG Hemoglobin 10.6 L ABG Oxyhemoglobin ABG Sodium ABG Potassium ABG Chloride 109.0 H ABG Glucose 149 H VBG pH Oxyhemoglobin Carboxyhemoglobin Sodium Potassium Chloride Carbon Dioxide BUN Creatinine Glucose POC Glucose 141 H 139 H Lactic Acid Calcium Phosphorus Magnesium Total Bilirubin AST ALT Ammonia Lactate Dehydrogenase Total Creatine Kinase CK-MB (CK-2) Troponin T NT-Pro-B Natriuret Pep Total Protein Albumin Triglycerides TSH Arterial Blood Glucose 149 H Arterial Blood Ionized Calcium Urine pH Urine WBC (Auto) Urine Creatinine 10/23/20 10/23/20 10/23/20 05:39 06:00 11:32 WBC RBC Hgb Hct RDW Lymph % (Auto) [place] % (Auto) Eos % (Auto) Lymph # (Auto) [place] # (Auto) Eos # (Auto) Seg Neutrophils % Lymphocytes % (Manual) Monocytes % (Manual) Seg Neutrophils # Seg Neutrophils # Man Lymphocytes # (Manual) Monocytes # (Manual) D-Dimer Heparin Anti-Xa Level ABG pH POC ABG pCO2 POC ABG pO2 ABG pO2 ABG HCO3 ABG O2 Saturation ABG Base Excess ABG Hemoglobin ABG Oxyhemoglobin ABG Sodium ABG Potassium ABG Chloride ABG Glucose VBG pH Oxyhemoglobin Carboxyhemoglobin Sodium 146 H Potassium Chloride Carbon Dioxide 35 H BUN 92 H Creatinine 2.0 H Glucose 144 H POC Glucose 139 H 176 H Lactic Acid Calcium Phosphorus Magnesium Total Bilirubin AST ALT Ammonia Lactate Dehydrogenase Total Creatine Kinase CK-MB (CK-2) Troponin T NT-Pro-B Natriuret Pep Total Protein Albumin Triglycerides TSH Arterial Blood Glucose Arterial Blood Ionized Calcium Urine pH Urine WBC (Auto) Urine Creatinine 10/23/20 10/23/20 10/24/20 11:34 17:55 05:33 WBC RBC Hgb Hct RDW Lymph % (Auto) [place] % (Auto) Eos % (Auto) Lymph # (Auto) [place] # (Auto) Eos # (Auto) Seg Neutrophils % Lymphocytes % (Manual) Monocytes % (Manual) Seg Neutrophils # Seg Neutrophils # Man Lymphocytes # (Manual) Monocytes # (Manual) D-Dimer Heparin Anti-Xa Level ABG pH POC ABG pCO2 POC ABG pO2 ABG pO2 ABG HCO3 ABG O2 Saturation ABG Base Excess ABG Hemoglobin ABG Oxyhemoglobin ABG Sodium ABG Potassium ABG Chloride ABG Glucose VBG pH Oxyhemoglobin Carboxyhemoglobin Sodium 147 H Potassium Chloride Carbon Dioxide 32 H BUN 76 H Creatinine 1.7 H Glucose 172 H POC Glucose 173 H 135 H Lactic Acid Calcium Phosphorus Magnesium Total Bilirubin AST ALT Ammonia Lactate Dehydrogenase Total Creatine Kinase CK-MB (CK-2) Troponin T NT-Pro-B Natriuret Pep Total Protein Albumin Triglycerides TSH Arterial Blood Glucose Arterial Blood Ionized Calcium Urine pH Urine WBC (Auto) Urine Creatinine 10/24/20 10/24/20 10/24/20 05:41 12:09 18:09 WBC RBC Hgb Hct RDW Lymph % (Auto) [place] % (Auto) Eos % (Auto) Lymph # (Auto) [place] # (Auto) Eos # (Auto) Seg Neutrophils % Lymphocytes % (Manual) Monocytes % (Manual) Seg Neutrophils # Seg Neutrophils # Man Lymphocytes # (Manual) Monocytes # (Manual) D-Dimer Heparin Anti-Xa Level ABG pH POC ABG pCO2 POC ABG pO2 ABG pO2 ABG HCO3 ABG O2 Saturation ABG Base Excess ABG Hemoglobin ABG Oxyhemoglobin ABG Sodium ABG Potassium ABG Chloride ABG Glucose VBG pH Oxyhemoglobin Carboxyhemoglobin Sodium Potassium Chloride Carbon Dioxide BUN Creatinine Glucose POC Glucose 156 H 154 H 132 H Lactic Acid Calcium Phosphorus Magnesium Total Bilirubin AST ALT Ammonia Lactate Dehydrogenase Total Creatine Kinase CK-MB (CK-2) Troponin T NT-Pro-B Natriuret Pep Total Protein Albumin Triglycerides TSH Arterial Blood Glucose Arterial Blood Ionized Calcium Urine pH Urine WBC (Auto) Urine Creatinine 10/24/20 10/25/2010/25/21 23:39 05:29 08:55 WBC RBC Hgb Hct RDW Lymph % (Auto) [place] % (Auto) Eos % (Auto) Lymph # (Auto) [place] # (Auto) Eos # (Auto) Seg Neutrophils % Lymphocytes % (Manual) Monocytes % (Manual) Seg Neutrophils # Seg Neutrophils # Man Lymphocytes # (Manual) Monocytes # (Manual) D-Dimer Heparin Anti-Xa Level ABG pH POC ABG pCO2 POC ABG pO2 ABG pO2 ABG HCO3 ABG O2 Saturation ABG Base Excess ABG Hemoglobin ABG Oxyhemoglobin ABG Sodium ABG Potassium ABG Chloride ABG Glucose VBG pH Oxyhemoglobin Carboxyhemoglobin Sodium 150 H Potassium Chloride 108.3 H Carbon Dioxide 32 H BUN 57 H Creatinine 1.5 H Glucose 142 H POC Glucose 131 H 142 H Lactic Acid Calcium Phosphorus Magnesium Total Bilirubin AST ALT Ammonia Lactate Dehydrogenase Total Creatine Kinase CK-MB (CK-2) Troponin T NT-Pro-B Natriuret Pep Total Protein Albumin Triglycerides TSH Arterial Blood Glucose Arterial Blood Ionized Calcium Urine pH Urine WBC (Auto) Urine Creatinine 10/25/20 10/25/20 10/25/20 08:55 11:08 18:10 WBC 14.3 H RBC 3.57 L Hgb 10.3 L Hct 31.6 L RDW Lymph % (Auto) [place] % (Auto) Eos % (Auto) Lymph # (Auto) [place] # (Auto) Eos # (Auto) Seg Neutrophils % Lymphocytes % (Manual) Monocytes % (Manual) Seg Neutrophils # Seg Neutrophils # Man Lymphocytes # (Manual) Monocytes # (Manual) D-Dimer Heparin Anti-Xa Level ABG pH POC ABG pCO2 52.3 H POC ABG pO2 ABG pO2 ABG HCO3 ABG O2 Saturation ABG Base Excess ABG Hemoglobin 11.2 L ABG Oxyhemoglobin ABG Sodium ABG Potassium ABG Chloride 108.0 H ABG Glucose 167 H VBG pH Oxyhemoglobin Carboxyhemoglobin Sodium Potassium Chloride Carbon Dioxide BUN Creatinine Glucose POC Glucose 157 H Lactic Acid Calcium Phosphorus Magnesium Total Bilirubin AST ALT Ammonia Lactate Dehydrogenase Total Creatine Kinase CK-MB (CK-2) Troponin T NT-Pro-B Natriuret Pep Total Protein Albumin Triglycerides TSH Arterial Blood Glucose 167 H Arterial Blood Ionized Calcium Urine pH Urine WBC (Auto) Urine Creatinine 10/25/20 10/26/20 10/26/20 18:20 00:20 06:08 WBC RBC Hgb Hct RDW Lymph % (Auto) [place] % (Auto) Eos % (Auto) Lymph # (Auto) [place] # (Auto) Eos # (Auto) Seg Neutrophils % Lymphocytes % (Manual) Monocytes % (Manual) Seg Neutrophils # Seg Neutrophils # Man Lymphocytes # (Manual) Monocytes # (Manual) D-Dimer Heparin Anti-Xa Level ABG pH POC ABG pCO2 POC ABG pO2 ABG pO2 ABG HCO3 ABG O2 Saturation ABG Base Excess ABG Hemoglobin ABG Oxyhemoglobin ABG Sodium ABG Potassium ABG Chloride ABG Glucose VBG pH Oxyhemoglobin Carboxyhemoglobin Sodium Potassium Chloride Carbon Dioxide BUN Creatinine Glucose POC Glucose 127 H 108 H 119 H Lactic Acid Calcium Phosphorus Magnesium Total Bilirubin AST ALT Ammonia Lactate Dehydrogenase Total Creatine Kinase CK-MB (CK-2) Troponin T NT-Pro-B Natriuret Pep Total Protein Albumin Triglycerides TSH Arterial Blood Glucose Arterial Blood Ionized Calcium Urine pH Urine WBC (Auto) Urine Creatinine 10/26/20 10/26/20 10/26/20 07:38 07:38 11:28 WBC 13.5 H RBC 3.37 L Hgb 9.8 L Hct 30.0 L RDW Lymph % (Auto) [place] % (Auto) Eos % (Auto) Lymph # (Auto) [place] # (Auto) Eos # (Auto) Seg Neutrophils % Lymphocytes % (Manual) Monocytes % (Manual) Seg Neutrophils # Seg Neutrophils # Man Lymphocytes # (Manual) Monocytes # (Manual) D-Dimer Heparin Anti-Xa Level ABG pH POC ABG pCO2 POC ABG pO2 ABG pO2 ABG HCO3 ABG O2 Saturation ABG Base Excess ABG Hemoglobin ABG Oxyhemoglobin ABG Sodium ABG Potassium ABG Chloride ABG Glucose VBG pH Oxyhemoglobin Carboxyhemoglobin Sodium 149 H Potassium Chloride 107.6 H Carbon Dioxide 34 H BUN 49 H Creatinine 1.4 H Glucose 137 H POC Glucose 148 H Lactic Acid Calcium Phosphorus Magnesium Total Bilirubin AST ALT Ammonia Lactate Dehydrogenase Total Creatine Kinase CK-MB (CK-2) Troponin T NT-Pro-B Natriuret Pep Total Protein Albumin Triglycerides TSH Arterial Blood Glucose Arterial Blood Ionized Calcium Urine pH Urine WBC (Auto) Urine Creatinine 10/26/20 10/26/20 10/27/20 18:17 23:37 05:08 WBC RBC Hgb Hct RDW Lymph % (Auto) [place] % (Auto) Eos % (Auto) Lymph # (Auto) [place] # (Auto) Eos # (Auto) Seg Neutrophils % Lymphocytes % (Manual) Monocytes % (Manual) Seg Neutrophils # Seg Neutrophils # Man Lymphocytes # (Manual) Monocytes # (Manual) D-Dimer Heparin Anti-Xa Level ABG pH POC ABG pCO2 POC ABG pO2 ABG pO2 ABG HCO3 ABG O2 Saturation ABG Base Excess ABG Hemoglobin ABG Oxyhemoglobin ABG Sodium ABG Potassium ABG Chloride ABG Glucose VBG pH Oxyhemoglobin Carboxyhemoglobin Sodium Potassium Chloride Carbon Dioxide BUN Creatinine Glucose POC Glucose 121 H 152 H 120 H Lactic Acid Calcium Phosphorus Magnesium Total Bilirubin AST ALT Ammonia Lactate Dehydrogenase Total Creatine Kinase CK-MB (CK-2) Troponin T NT-Pro-B Natriuret Pep Total Protein Albumin Triglycerides TSH Arterial Blood Glucose Arterial Blood Ionized Calcium Urine pH Urine WBC (Auto) Urine Creatinine 10/27/20 10/27/20 10/27/20 07:30 07:30 11:59 WBC RBC 3.46 L Hgb 10.2 L Hct 30.9 L RDW Lymph % (Auto) [place] % (Auto) Eos % (Auto) Lymph # (Auto) [place] # (Auto) Eos # (Auto) Seg Neutrophils % Lymphocytes % (Manual) Monocytes % (Manual) Seg Neutrophils # Seg Neutrophils # Man Lymphocytes # (Manual) Monocytes # (Manual) D-Dimer Heparin Anti-Xa Level ABG pH POC ABG pCO2 POC ABG pO2 ABG pO2 ABG HCO3 ABG O2 Saturation ABG Base Excess ABG Hemoglobin ABG Oxyhemoglobin ABG Sodium ABG Potassium ABG Chloride ABG Glucose VBG pH Oxyhemoglobin Carboxyhemoglobin Sodium 146 H Potassium Chloride Carbon Dioxide 34 H BUN 45 H Creatinine Glucose 131 H POC Glucose 143 H Lactic Acid Calcium Phosphorus Magnesium Total Bilirubin AST ALT Ammonia Lactate Dehydrogenase Total Creatine Kinase CK-MB (CK-2) Troponin T NT-Pro-B Natriuret Pep Total Protein Albumin Triglycerides TSH Arterial Blood Glucose Arterial Blood Ionized Calcium Urine pH Urine WBC (Auto) Urine Creatinine 10/27/20 10/27/20 10/28/20 18:52 23:03 07:00 WBC RBC Hgb Hct RDW Lymph % (Auto) [place] % (Auto) Eos % (Auto) Lymph # (Auto) [place] # (Auto) Eos # (Auto) Seg Neutrophils % Lymphocytes % (Manual) Monocytes % (Manual) Seg Neutrophils # Seg Neutrophils # Man Lymphocytes # (Manual) Monocytes # (Manual) D-Dimer Heparin Anti-Xa Level ABG pH POC ABG pCO2 POC ABG pO2 ABG pO2 ABG HCO3 ABG O2 Saturation ABG Base Excess ABG Hemoglobin ABG Oxyhemoglobin ABG Sodium ABG Potassium ABG Chloride ABG Glucose VBG pH Oxyhemoglobin Carboxyhemoglobin Sodium 147 H Potassium Chloride Carbon Dioxide 35 H BUN 39 H Creatinine Glucose 133 H POC Glucose 119 H 158 H Lactic Acid Calcium Phosphorus Magnesium Total Bilirubin AST ALT Ammonia Lactate Dehydrogenase Total Creatine Kinase CK-MB (CK-2) Troponin T NT-Pro-B Natriuret Pep Total Protein Albumin Triglycerides TSH Arterial Blood Glucose Arterial Blood Ionized Calcium Urine pH Urine WBC (Auto) Urine Creatinine 10/28/20 10/28/20 10/28/20 09:00 11:47 17:15 WBC 12.5 H RBC 3.58 L Hgb 10.5 L Hct 32.1 L RDW Lymph % (Auto) [place] % (Auto) Eos % (Auto) Lymph # (Auto) [place] # (Auto) Eos # (Auto) Seg Neutrophils % Lymphocytes % (Manual) Monocytes % (Manual) Seg Neutrophils # Seg Neutrophils # Man Lymphocytes # (Manual) Monocytes # (Manual) D-Dimer Heparin Anti-Xa Level ABG pH POC ABG pCO2 POC ABG pO2 ABG pO2 ABG HCO3 ABG O2 Saturation ABG Base Excess ABG Hemoglobin ABG Oxyhemoglobin ABG Sodium ABG Potassium ABG Chloride ABG Glucose VBG pH Oxyhemoglobin Carboxyhemoglobin Sodium Potassium Chloride Carbon Dioxide BUN Creatinine Glucose POC Glucose 129 H 109 H Lactic Acid Calcium Phosphorus Magnesium Total Bilirubin AST ALT Ammonia Lactate Dehydrogenase Total Creatine Kinase CK-MB (CK-2) Troponin T NT-Pro-B Natriuret Pep Total Protein Albumin Triglycerides TSH Arterial Blood Glucose Arterial Blood Ionized Calcium Urine pH Urine WBC (Auto) Urine Creatinine 10/28/20 10/29/20 10/29/20 23:31 04:23 04:23 WBC 13.6 H RBC 3.47 L Hgb 10.5 L Hct 30.7 L RDW 15.4 H Lymph % (Auto) [place] % (Auto) Eos % (Auto) Lymph # (Auto) [place] # (Auto) Eos # (Auto) Seg Neutrophils % Lymphocytes % (Manual) Monocytes % (Manual) Seg Neutrophils # Seg Neutrophils # Man Lymphocytes # (Manual) Monocytes # (Manual) D-Dimer Heparin Anti-Xa Level ABG pH POC ABG pCO2 POC ABG pO2 ABG pO2 ABG HCO3 ABG O2 Saturation ABG Base Excess ABG Hemoglobin ABG Oxyhemoglobin ABG Sodium ABG Potassium ABG Chloride ABG Glucose VBG pH Oxyhemoglobin Carboxyhemoglobin Sodium Potassium Chloride Carbon Dioxide 35 H BUN 34 H Creatinine Glucose 107 H POC Glucose 138 H Lactic Acid Calcium Phosphorus Magnesium Total Bilirubin AST ALT Ammonia Lactate Dehydrogenase Total Creatine Kinase CK-MB (CK-2) Troponin T NT-Pro-B Natriuret Pep Total Protein Albumin Triglycerides TSH Arterial Blood Glucose Arterial Blood Ionized Calcium Urine pH Urine WBC (Auto) Urine Creatinine 10/29/20 10/29/20 10/29/20 05:21 11:49 23:19 WBC RBC Hgb Hct RDW Lymph % (Auto) [place] % (Auto) Eos % (Auto) Lymph # (Auto) [place] # (Auto) Eos # (Auto) Seg Neutrophils % Lymphocytes % (Manual) Monocytes % (Manual) Seg Neutrophils # Seg Neutrophils # Man Lymphocytes # (Manual) Monocytes # (Manual) D-Dimer Heparin Anti-Xa Level ABG pH POC ABG pCO2 POC ABG pO2 ABG pO2 ABG HCO3 ABG O2 Saturation ABG Base Excess ABG Hemoglobin ABG Oxyhemoglobin ABG Sodium ABG Potassium ABG Chloride ABG Glucose VBG pH Oxyhemoglobin Carboxyhemoglobin Sodium Potassium Chloride Carbon Dioxide BUN Creatinine Glucose POC Glucose 115 H 124 H 129 H Lactic Acid Calcium Phosphorus Magnesium Total Bilirubin AST ALT Ammonia Lactate Dehydrogenase Total Creatine Kinase CK-MB (CK-2) Troponin T NT-Pro-B Natriuret Pep Total Protein Albumin Triglycerides TSH Arterial Blood Glucose Arterial Blood Ionized Calcium Urine pH Urine WBC (Auto) Urine Creatinine 10/30/20 10/30/20 10/30/20 04:59 05:10 11:52 WBC RBC Hgb Hct RDW Lymph % (Auto) [place] % (Auto) Eos % (Auto) Lymph # (Auto) [place] # (Auto) Eos # (Auto) Seg Neutrophils % Lymphocytes % (Manual) Monocytes % (Manual) Seg Neutrophils # Seg Neutrophils # Man Lymphocytes # (Manual) Monocytes # (Manual) D-Dimer Heparin Anti-Xa Level ABG pH POC ABG pCO2 POC ABG pO2 ABG pO2 ABG HCO3 ABG O2 Saturation ABG Base Excess ABG Hemoglobin ABG Oxyhemoglobin ABG Sodium ABG Potassium ABG Chloride ABG Glucose VBG pH Oxyhemoglobin Carboxyhemoglobin Sodium Potassium Chloride Carbon Dioxide 34 H BUN 33 H Creatinine Glucose 128 H POC Glucose 126 H 132 H Lactic Acid Calcium Phosphorus Magnesium Total Bilirubin AST ALT Ammonia Lactate Dehydrogenase Total Creatine Kinase CK-MB (CK-2) Troponin T NT-Pro-B Natriuret Pep Total Protein Albumin Triglycerides TSH Arterial Blood Glucose Arterial Blood Ionized Calcium Urine pH Urine WBC (Auto) Urine Creatinine 10/30/20 10/30/20 10/31/20 16:59 23:19 04:00 WBC RBC Hgb Hct RDW Lymph % (Auto) [place] % (Auto) Eos % (Auto) Lymph # (Auto) [place] # (Auto) Eos # (Auto) Seg Neutrophils % Lymphocytes % (Manual) Monocytes % (Manual) Seg Neutrophils # Seg Neutrophils # Man Lymphocytes # (Manual) Monocytes # (Manual) D-Dimer Heparin Anti-Xa Level ABG pH POC ABG pCO2 POC ABG pO2 ABG pO2 ABG HCO3 ABG O2 Saturation ABG Base Excess ABG Hemoglobin ABG Oxyhemoglobin ABG Sodium ABG Potassium ABG Chloride ABG Glucose VBG pH Oxyhemoglobin Carboxyhemoglobin Sodium Potassium Chloride Carbon Dioxide 38 H BUN 32 H Creatinine Glucose 121 H POC Glucose 118 H 138 H Lactic Acid Calcium Phosphorus Magnesium Total Bilirubin AST ALT Ammonia Lactate Dehydrogenase Total Creatine Kinase CK-MB (CK-2) Troponin T NT-Pro-B Natriuret Pep Total Protein Albumin Triglycerides TSH Arterial Blood Glucose Arterial Blood Ionized Calcium Urine pH Urine WBC (Auto) Urine Creatinine 10/31/20 10/31/20 10/31/20 05:13 11:09 16:17 WBC RBC Hgb Hct RDW Lymph % (Auto) [place] % (Auto) Eos % (Auto) Lymph # (Auto) [place] # (Auto) Eos # (Auto) Seg Neutrophils % Lymphocytes % (Manual) Monocytes % (Manual) Seg Neutrophils # Seg Neutrophils # Man Lymphocytes # (Manual) Monocytes # (Manual) D-Dimer Heparin Anti-Xa Level ABG pH POC ABG pCO2 71.1 H POC ABG pO2 67.4 L ABG pO2 ABG HCO3 ABG O2 Saturation ABG Base Excess ABG Hemoglobin 10.9 L ABG Oxyhemoglobin 90.7 L ABG Sodium ABG Potassium ABG Chloride ABG Glucose 134 H VBG pH Oxyhemoglobin Carboxyhemoglobin Sodium Potassium Chloride Carbon Dioxide BUN Creatinine Glucose POC Glucose 110 H 138 H Lactic Acid Calcium Phosphorus Magnesium Total Bilirubin AST ALT Ammonia Lactate Dehydrogenase Total Creatine Kinase CK-MB (CK-2) Troponin T NT-Pro-B Natriuret Pep Total Protein Albumin Triglycerides TSH Arterial Blood Glucose 134 H Arterial Blood Ionized Calcium Urine pH Urine WBC (Auto) Urine Creatinine 10/31/20 10/31/20 11/01/20 18:16 23:56 04:09 WBC 11.3 H RBC 3.05 L Hgb 9.0 L Hct 27.3 L RDW Lymph % (Auto) [place] % (Auto) Eos % (Auto) Lymph # (Auto) [place] # (Auto) Eos # (Auto) Seg Neutrophils % Lymphocytes % (Manual) Monocytes % (Manual) Seg Neutrophils # Seg Neutrophils # Man Lymphocytes # (Manual) Monocytes # (Manual) D-Dimer Heparin Anti-Xa Level ABG pH POC ABG pCO2 POC ABG pO2 ABG pO2 ABG HCO3 ABG O2 Saturation ABG Base Excess ABG Hemoglobin ABG Oxyhemoglobin ABG Sodium ABG Potassium ABG Chloride ABG Glucose VBG pH Oxyhemoglobin Carboxyhemoglobin Sodium Potassium Chloride Carbon Dioxide BUN Creatinine Glucose POC Glucose 135 H 122 H Lactic Acid Calcium Phosphorus Magnesium Total Bilirubin AST ALT Ammonia Lactate Dehydrogenase Total Creatine Kinase CK-MB (CK-2) Troponin T NT-Pro-B Natriuret Pep Total Protein Albumin Triglycerides TSH Arterial Blood Glucose Arterial Blood Ionized Calcium Urine pH Urine WBC (Auto) Urine Creatinine 11/01/20 11/01/20 11/01/20 05:10 11:51 17:17 WBC RBC Hgb Hct RDW Lymph % (Auto) [place] % (Auto) Eos % (Auto) Lymph # (Auto) [place] # (Auto) Eos # (Auto) Seg Neutrophils % Lymphocytes % (Manual) Monocytes % (Manual) Seg Neutrophils # Seg Neutrophils # Man Lymphocytes # (Manual) Monocytes # (Manual) D-Dimer Heparin Anti-Xa Level ABG pH POC ABG pCO2 POC ABG pO2 ABG pO2 ABG HCO3 ABG O2 Saturation ABG Base Excess ABG Hemoglobin ABG Oxyhemoglobin ABG Sodium ABG Potassium ABG Chloride ABG Glucose VBG pH Oxyhemoglobin Carboxyhemoglobin Sodium Potassium Chloride Carbon Dioxide BUN Creatinine Glucose POC Glucose 123 H 123 H 120 H Lactic Acid Calcium Phosphorus Magnesium Total Bilirubin AST ALT Ammonia Lactate Dehydrogenase Total Creatine Kinase CK-MB (CK-2) Troponin T NT-Pro-B Natriuret Pep Total Protein Albumin Triglycerides TSH Arterial Blood Glucose Arterial Blood Ionized Calcium Urine pH Urine WBC (Auto) Urine Creatinine 11/02/20 11/02/20 11/02/20 03:14 05:37 05:37 WBC RBC Hgb 9.8 L Hct 29.5 L RDW Lymph % (Auto) [place] % (Auto) Eos % (Auto) Lymph # (Auto) [place] # (Auto) Eos # (Auto) Seg Neutrophils % Lymphocytes % (Manual) Monocytes % (Manual) Seg Neutrophils # Seg Neutrophils # Man Lymphocytes # (Manual) Monocytes # (Manual) D-Dimer Heparin Anti-Xa Level ABG pH POC ABG pCO2 58.9 H POC ABG pO2 79.9 L ABG pO2 ABG HCO3 ABG O2 Saturation ABG Base Excess ABG Hemoglobin 10.6 L ABG Oxyhemoglobin ABG Sodium ABG Potassium ABG Chloride ABG Glucose 110 H VBG pH Oxyhemoglobin Carboxyhemoglobin Sodium Potassium Chloride Carbon Dioxide 37 H BUN 28 H Creatinine Glucose 106 H POC Glucose Lactic Acid Calcium Phosphorus Magnesium Total Bilirubin AST ALT Ammonia Lactate Dehydrogenase Total Creatine Kinase CK-MB (CK-2) Troponin T NT-Pro-B Natriuret Pep Total Protein Albumin Triglycerides TSH Arterial Blood Glucose 110 H Arterial Blood Ionized Calcium Urine pH Urine WBC (Auto) Urine Creatinine 11/02/20 11/03/20 11/03/20 23:29 04:45 04:45 WBC 11.8 H RBC 3.07 L Hgb 9.0 L Hct 27.2 L RDW Lymph % (Auto) 11.4 L [place] % (Auto) 9.5 H Eos % (Auto) Lymph # (Auto) [place] # (Auto) 1.1 H Eos # (Auto) Seg Neutrophils % 75.9 H Lymphocytes % (Manual) Monocytes % (Manual) Seg Neutrophils # 9.0 H Seg Neutrophils # Man Lymphocytes # (Manual) Monocytes # (Manual) D-Dimer Heparin Anti-Xa Level ABG pH POC ABG pCO2 POC ABG pO2 ABG pO2 ABG HCO3 ABG O2 Saturation ABG Base Excess ABG Hemoglobin ABG Oxyhemoglobin ABG Sodium ABG Potassium ABG Chloride ABG Glucose VBG pH Oxyhemoglobin Carboxyhemoglobin Sodium 146 H Potassium Chloride Carbon Dioxide 39 H BUN 26 H Creatinine Glucose POC Glucose 129 H Lactic Acid Calcium Phosphorus Magnesium Total Bilirubin AST ALT Ammonia Lactate Dehydrogenase Total Creatine Kinase CK-MB (CK-2) Troponin T NT-Pro-B Natriuret Pep Total Protein Albumin Triglycerides TSH Arterial Blood Glucose Arterial Blood Ionized Calcium Urine pH Urine WBC (Auto) Urine Creatinine 11/03/20 11/03/20 11/03/20 05:05 11:51 17:43 WBC RBC Hgb Hct RDW Lymph % (Auto) [place] % (Auto) Eos % (Auto) Lymph # (Auto) [place] # (Auto) Eos # (Auto) Seg Neutrophils % Lymphocytes % (Manual) Monocytes % (Manual) Seg Neutrophils # Seg Neutrophils # Man Lymphocytes # (Manual) Monocytes # (Manual) D-Dimer Heparin Anti-Xa Level ABG pH 7.452 H POC ABG pCO2 55.4 H POC ABG pO2 129.1 H ABG pO2 ABG HCO3 ABG O2 Saturation ABG Base Excess ABG Hemoglobin 9.3 L ABG Oxyhemoglobin ABG Sodium ABG Potassium ABG Chloride ABG Glucose 99 H VBG pH Oxyhemoglobin Carboxyhemoglobin 1.7 H Sodium Potassium Chloride Carbon Dioxide BUN Creatinine Glucose POC Glucose 131 H 125 H Lactic Acid Calcium Phosphorus Magnesium Total Bilirubin AST ALT Ammonia Lactate Dehydrogenase Total Creatine Kinase CK-MB (CK-2) Troponin T NT-Pro-B Natriuret Pep Total Protein Albumin Triglycerides TSH Arterial Blood Glucose 99 H Arterial Blood Ionized Calcium Urine pH Urine WBC (Auto) Urine Creatinine 11/03/20 11/04/20 11/04/20 23:27 04:00 05:10 WBC RBC Hgb Hct RDW Lymph % (Auto) [place] % (Auto) Eos % (Auto) Lymph # (Auto) [place] # (Auto) Eos # (Auto) Seg Neutrophils % Lymphocytes % (Manual) Monocytes % (Manual) Seg Neutrophils # Seg Neutrophils # Man Lymphocytes # (Manual) Monocytes # (Manual) D-Dimer Heparin Anti-Xa Level ABG pH POC ABG pCO2 POC ABG pO2 ABG pO2 ABG HCO3 ABG O2 Saturation ABG Base Excess ABG Hemoglobin ABG Oxyhemoglobin ABG Sodium ABG Potassium ABG Chloride ABG Glucose VBG pH Oxyhemoglobin Carboxyhemoglobin Sodium Potassium Chloride 95.2 L Carbon Dioxide 40 H BUN 26 H Creatinine Glucose 128 H POC Glucose 148 H 126 H Lactic Acid Calcium Phosphorus Magnesium Total Bilirubin AST ALT Ammonia Lactate Dehydrogenase Total Creatine Kinase CK-MB (CK-2) Troponin T NT-Pro-B Natriuret Pep Total Protein Albumin Triglycerides TSH Arterial Blood Glucose Arterial Blood Ionized Calcium Urine pH Urine WBC (Auto) Urine Creatinine 11/04/20 11/04/20 11/04/20 11:39 18:00 21:18 WBC RBC Hgb Hct RDW Lymph % (Auto) [place] % (Auto) Eos % (Auto) Lymph # (Auto) [place] # (Auto) Eos # (Auto) Seg Neutrophils % Lymphocytes % (Manual) Monocytes % (Manual) Seg Neutrophils # Seg Neutrophils # Man Lymphocytes # (Manual) Monocytes # (Manual) D-Dimer Heparin Anti-Xa Level ABG pH 7.511 H POC ABG pCO2 49.0 H POC ABG pO2 ABG pO2 ABG HCO3 ABG O2 Saturation ABG Base Excess ABG Hemoglobin 9.5 L ABG Oxyhemoglobin ABG Sodium 135.7 L ABG Potassium ABG Chloride ABG Glucose 152 H VBG pH Oxyhemoglobin Carboxyhemoglobin Sodium Potassium Chloride Carbon Dioxide BUN Creatinine Glucose POC Glucose 142 H 130 H Lactic Acid Calcium Phosphorus Magnesium Total Bilirubin AST ALT Ammonia Lactate Dehydrogenase Total Creatine Kinase CK-MB (CK-2) Troponin T NT-Pro-B Natriuret Pep Total Protein Albumin Triglycerides TSH Arterial Blood Glucose 152 H Arterial Blood Ionized Calcium 4.3 L Urine pH Urine WBC (Auto) Urine Creatinine 11/04/20 11/05/20 11/05/20 23:19 03:30 03:30 WBC RBC 3.02 L Hgb 9.1 L Hct 26.7 L RDW Lymph % (Auto) [place] % (Auto) Eos % (Auto) Lymph # (Auto) [place] # (Auto) Eos # (Auto) Seg Neutrophils % Lymphocytes % (Manual) Monocytes % (Manual) Seg Neutrophils # Seg Neutrophils # Man Lymphocytes # (Manual) Monocytes # (Manual) D-Dimer Heparin Anti-Xa Level ABG pH POC ABG pCO2 POC ABG pO2 ABG pO2 ABG HCO3 ABG O2 Saturation ABG Base Excess ABG Hemoglobin ABG Oxyhemoglobin ABG Sodium ABG Potassium ABG Chloride ABG Glucose VBG pH Oxyhemoglobin Carboxyhemoglobin Sodium Potassium Chloride 93.6 L Carbon Dioxide 40 H BUN 24 H Creatinine Glucose 121 H POC Glucose 126 H Lactic Acid Calcium Phosphorus Magnesium Total Bilirubin AST ALT Ammonia Lactate Dehydrogenase Total Creatine Kinase CK-MB (CK-2) Troponin T NT-Pro-B Natriuret Pep Total Protein Albumin Triglycerides TSH Arterial Blood Glucose Arterial Blood Ionized Calcium Urine pH Urine WBC (Auto) Urine Creatinine 11/05/20 11/05/20 11/05/20 05:24 11:37 17:37 WBC RBC Hgb Hct RDW Lymph % (Auto) [place] % (Auto) Eos % (Auto) Lymph # (Auto) [place] # (Auto) Eos # (Auto) Seg Neutrophils % Lymphocytes % (Manual) Monocytes % (Manual) Seg Neutrophils # Seg Neutrophils # Man Lymphocytes # (Manual) Monocytes # (Manual) D-Dimer Heparin Anti-Xa Level ABG pH POC ABG pCO2 POC ABG pO2 ABG pO2 ABG HCO3 ABG O2 Saturation ABG Base Excess ABG Hemoglobin ABG Oxyhemoglobin ABG Sodium ABG Potassium ABG Chloride ABG Glucose VBG pH Oxyhemoglobin Carboxyhemoglobin Sodium Potassium Chloride Carbon Dioxide BUN Creatinine Glucose POC Glucose 124 H 125 H 153 H Lactic Acid Calcium Phosphorus Magnesium Total Bilirubin AST ALT Ammonia Lactate Dehydrogenase Total Creatine Kinase CK-MB (CK-2) Troponin T NT-Pro-B Natriuret Pep Total Protein Albumin Triglycerides TSH Arterial Blood Glucose Arterial Blood Ionized Calcium Urine pH Urine WBC (Auto) Urine Creatinine 11/05/20 11/06/20 11/06/20 23:20 05:24 12:17 WBC RBC Hgb Hct RDW Lymph % (Auto) [place] % (Auto) Eos % (Auto) Lymph # (Auto) [place] # (Auto) Eos # (Auto) Seg Neutrophils % Lymphocytes % (Manual) Monocytes % (Manual) Seg Neutrophils # Seg Neutrophils # Man Lymphocytes # (Manual) Monocytes # (Manual) D-Dimer Heparin Anti-Xa Level ABG pH POC ABG pCO2 POC ABG pO2 ABG pO2 ABG HCO3 ABG O2 Saturation ABG Base Excess ABG Hemoglobin ABG Oxyhemoglobin ABG Sodium ABG Potassium ABG Chloride ABG Glucose VBG pH Oxyhemoglobin Carboxyhemoglobin Sodium Potassium Chloride Carbon Dioxide BUN Creatinine Glucose POC Glucose 133 H 143 H 139 H Lactic Acid Calcium Phosphorus Magnesium Total Bilirubin AST ALT Ammonia Lactate Dehydrogenase Total Creatine Kinase CK-MB (CK-2) Troponin T NT-Pro-B Natriuret Pep Total Protein Albumin Triglycerides TSH Arterial Blood Glucose Arterial Blood Ionized Calcium Urine pH Urine WBC (Auto) Urine Creatinine 11/06/20 11/06/20 11/07/20 17:38 23:26 04:50 WBC RBC 3.24 L Hgb 9.6 L Hct 29.0 L RDW Lymph % (Auto) [place] % (Auto) 10.3 H Eos % (Auto) 6.9 H Lymph # (Auto) [place] # (Auto) Eos # (Auto) 0.5 H Seg Neutrophils % Lymphocytes % (Manual) Monocytes % (Manual) Seg Neutrophils # Seg Neutrophils # Man Lymphocytes # (Manual) Monocytes # (Manual) D-Dimer Heparin Anti-Xa Level ABG pH POC ABG pCO2 POC ABG pO2 ABG pO2 ABG HCO3 ABG O2 Saturation ABG Base Excess ABG Hemoglobin ABG Oxyhemoglobin ABG Sodium ABG Potassium ABG Chloride ABG Glucose VBG pH Oxyhemoglobin Carboxyhemoglobin Sodium Potassium Chloride Carbon Dioxide BUN Creatinine Glucose POC Glucose 139 H 117 H Lactic Acid Calcium Phosphorus Magnesium Total Bilirubin AST ALT Ammonia Lactate Dehydrogenase Total Creatine Kinase CK-MB (CK-2) Troponin T NT-Pro-B Natriuret Pep Total Protein Albumin Triglycerides TSH Arterial Blood Glucose Arterial Blood Ionized Calcium Urine pH Urine WBC (Auto) Urine Creatinine 11/07/20 11/07/20 11/07/20 04:50 05:10 12:22 WBC RBC Hgb Hct RDW Lymph % (Auto) [place] % (Auto) Eos % (Auto) Lymph # (Auto) [place] # (Auto) Eos # (Auto) Seg Neutrophils % Lymphocytes % (Manual) Monocytes % (Manual) Seg Neutrophils # Seg Neutrophils # Man Lymphocytes # (Manual) Monocytes # (Manual) D-Dimer Heparin Anti-Xa Level ABG pH POC ABG pCO2 POC ABG pO2 ABG pO2 ABG HCO3 ABG O2 Saturation ABG Base Excess ABG Hemoglobin ABG Oxyhemoglobin ABG Sodium ABG Potassium ABG Chloride ABG Glucose VBG pH Oxyhemoglobin Carboxyhemoglobin Sodium Potassium Chloride 97.2 L Carbon Dioxide 36 H BUN 25 H Creatinine Glucose 130 H POC Glucose 115 H 118 H Lactic Acid Calcium Phosphorus Magnesium Total Bilirubin AST ALT Ammonia Lactate Dehydrogenase Total Creatine Kinase CK-MB (CK-2) Troponin T NT-Pro-B Natriuret Pep Total Protein Albumin Triglycerides TSH Arterial Blood Glucose Arterial Blood Ionized Calcium Urine pH Urine WBC (Auto) Urine Creatinine 11/07/20 11/07/20 11/08/20 17:46 23:53 07:16 WBC RBC Hgb Hct RDW Lymph % (Auto) [place] % (Auto) Eos % (Auto) Lymph # (Auto) [place] # (Auto) Eos # (Auto) Seg Neutrophils % Lymphocytes % (Manual) Monocytes % (Manual) Seg Neutrophils # Seg Neutrophils # Man Lymphocytes # (Manual) Monocytes # (Manual) D-Dimer Heparin Anti-Xa Level ABG pH POC ABG pCO2 POC ABG pO2 ABG pO2 ABG HCO3 ABG O2 Saturation ABG Base Excess ABG Hemoglobin ABG Oxyhemoglobin ABG Sodium ABG Potassium ABG Chloride ABG Glucose VBG pH Oxyhemoglobin Carboxyhemoglobin Sodium Potassium Chloride Carbon Dioxide BUN Creatinine Glucose POC Glucose 150 H 141 H 134 H Lactic Acid Calcium Phosphorus Magnesium Total Bilirubin AST ALT Ammonia Lactate Dehydrogenase Total Creatine Kinase CK-MB (CK-2) Troponin T NT-Pro-B Natriuret Pep Total Protein Albumin Triglycerides TSH Arterial Blood Glucose Arterial Blood Ionized Calcium Urine pH Urine WBC (Auto) Urine Creatinine 11/08/20 11/08/20 11/08/20 11:35 17:59 23:50 WBC RBC Hgb Hct RDW Lymph % (Auto) [place] % (Auto) Eos % (Auto) Lymph # (Auto) [place] # (Auto) Eos # (Auto) Seg Neutrophils % Lymphocytes % (Manual) Monocytes % (Manual) Seg Neutrophils # Seg Neutrophils # Man Lymphocytes # (Manual) Monocytes # (Manual) D-Dimer Heparin Anti-Xa Level ABG pH POC ABG pCO2 POC ABG pO2 ABG pO2 ABG HCO3 ABG O2 Saturation ABG Base Excess ABG Hemoglobin ABG Oxyhemoglobin ABG Sodium ABG Potassium ABG Chloride ABG Glucose VBG pH Oxyhemoglobin Carboxyhemoglobin Sodium Potassium Chloride Carbon Dioxide BUN Creatinine Glucose POC Glucose 148 H 118 H 131 H Lactic Acid Calcium Phosphorus Magnesium Total Bilirubin AST ALT Ammonia Lactate Dehydrogenase Total Creatine Kinase CK-MB (CK-2) Troponin T NT-Pro-B Natriuret Pep Total Protein Albumin Triglycerides TSH Arterial Blood Glucose Arterial Blood Ionized Calcium Urine pH Urine WBC (Auto) Urine Creatinine 11/09/20 11/09/20 11/09/20 12:07 17:00 23:45 WBC RBC Hgb Hct RDW Lymph % (Auto) [place] % (Auto) Eos % (Auto) Lymph # (Auto) [place] # (Auto) Eos # (Auto) Seg Neutrophils % Lymphocytes % (Manual) Monocytes % (Manual) Seg Neutrophils # Seg Neutrophils # Man Lymphocytes # (Manual) Monocytes # (Manual) D-Dimer Heparin Anti-Xa Level ABG pH POC ABG pCO2 POC ABG pO2 ABG pO2 ABG HCO3 ABG O2 Saturation ABG Base Excess ABG Hemoglobin ABG Oxyhemoglobin ABG Sodium ABG Potassium ABG Chloride ABG Glucose VBG pH Oxyhemoglobin Carboxyhemoglobin Sodium Potassium Chloride Carbon Dioxide BUN Creatinine Glucose POC Glucose 133 H 126 H 129 H Lactic Acid Calcium Phosphorus Magnesium Total Bilirubin AST ALT Ammonia Lactate Dehydrogenase Total Creatine Kinase CK-MB (CK-2) Troponin T NT-Pro-B Natriuret Pep Total Protein Albumin Triglycerides TSH Arterial Blood Glucose Arterial Blood Ionized Calcium Urine pH Urine WBC (Auto) Urine Creatinine 11/10/20 11/10/20 11/10/20 05:43 11:47 17:56 WBC RBC Hgb Hct RDW Lymph % (Auto) [place] % (Auto) Eos % (Auto) Lymph # (Auto) [place] # (Auto) Eos # (Auto) Seg Neutrophils % Lymphocytes % (Manual) Monocytes % (Manual) Seg Neutrophils # Seg Neutrophils # Man Lymphocytes # (Manual) Monocytes # (Manual) D-Dimer Heparin Anti-Xa Level ABG pH POC ABG pCO2 POC ABG pO2 ABG pO2 ABG HCO3 ABG O2 Saturation ABG Base Excess ABG Hemoglobin ABG Oxyhemoglobin ABG Sodium ABG Potassium ABG Chloride ABG Glucose VBG pH Oxyhemoglobin Carboxyhemoglobin Sodium Potassium Chloride Carbon Dioxide BUN Creatinine Glucose POC Glucose 111 H 136 H 110 H Lactic Acid Calcium Phosphorus Magnesium Total Bilirubin AST ALT Ammonia Lactate Dehydrogenase Total Creatine Kinase CK-MB (CK-2) Troponin T NT-Pro-B Natriuret Pep Total Protein Albumin Triglycerides TSH Arterial Blood Glucose Arterial Blood Ionized Calcium Urine pH Urine WBC (Auto) Urine Creatinine 11/10/20 11/11/20 11/11/20 23:34 03:11 05:22 WBC RBC Hgb Hct RDW Lymph % (Auto) [place] % (Auto) Eos % (Auto) Lymph # (Auto) [place] # (Auto) Eos # (Auto) Seg Neutrophils % Lymphocytes % (Manual) Monocytes % (Manual) Seg Neutrophils # Seg Neutrophils # Man Lymphocytes # (Manual) Monocytes # (Manual) D-Dimer Heparin Anti-Xa Level ABG pH POC ABG pCO2 64.5 H POC ABG pO2 ABG pO2 ABG HCO3 ABG O2 Saturation ABG Base Excess ABG Hemoglobin 9.7 L ABG Oxyhemoglobin ABG Sodium ABG Potassium 5.0 H ABG Chloride ABG Glucose 148 H VBG pH Oxyhemoglobin Carboxyhemoglobin Sodium Potassium Chloride Carbon Dioxide BUN Creatinine Glucose POC Glucose 134 H 132 H Lactic Acid Calcium Phosphorus Magnesium Total Bilirubin AST ALT Ammonia Lactate Dehydrogenase Total Creatine Kinase CK-MB (CK-2) Troponin T NT-Pro-B Natriuret Pep Total Protein Albumin Triglycerides TSH Arterial Blood Glucose 148 H Arterial Blood Ionized Calcium Urine pH Urine WBC (Auto) Urine Creatinine 11/11/20 11/11/20 11/11/20 08:38 11:00 12:01 WBC RBC 2.79 L Hgb 8.4 L Hct 25.4 L RDW Lymph % (Auto) [place] % (Auto) Eos % (Auto) Lymph # (Auto) [place] # (Auto) Eos # (Auto) Seg Neutrophils % Lymphocytes % (Manual) Monocytes % (Manual) Seg Neutrophils # Seg Neutrophils # Man Lymphocytes # (Manual) Monocytes # (Manual) D-Dimer Heparin Anti-Xa Level ABG pH POC ABG pCO2 POC ABG pO2 ABG pO2 ABG HCO3 ABG O2 Saturation ABG Base Excess ABG Hemoglobin ABG Oxyhemoglobin ABG Sodium ABG Potassium ABG Chloride ABG Glucose VBG pH Oxyhemoglobin Carboxyhemoglobin Sodium 136 L Potassium Chloride 97.6 L Carbon Dioxide 35 H BUN 26 H Creatinine Glucose 133 H POC Glucose 142 H Lactic Acid Calcium 8.0 L Phosphorus Magnesium Total Bilirubin AST ALT Ammonia Lactate Dehydrogenase Total Creatine Kinase CK-MB (CK-2) Troponin T NT-Pro-B Natriuret Pep Total Protein Albumin Triglycerides TSH Arterial Blood Glucose Arterial Blood Ionized Calcium Urine pH Urine WBC (Auto) Urine Creatinine 11/11/20 11/12/20 11/12/20 23:12 05:31 07:41 WBC RBC Hgb Hct RDW Lymph % (Auto) [place] % (Auto) Eos % (Auto) Lymph # (Auto) [place] # (Auto) Eos # (Auto) Seg Neutrophils % Lymphocytes % (Manual) Monocytes % (Manual) Seg Neutrophils # Seg Neutrophils # Man Lymphocytes # (Manual) Monocytes # (Manual) D-Dimer Heparin Anti-Xa Level ABG pH POC ABG pCO2 POC ABG pO2 ABG pO2 ABG HCO3 ABG O2 Saturation ABG Base Excess ABG Hemoglobin ABG Oxyhemoglobin ABG Sodium ABG Potassium ABG Chloride ABG Glucose VBG pH Oxyhemoglobin Carboxyhemoglobin Sodium Potassium Chloride Carbon Dioxide BUN Creatinine Glucose POC Glucose 127 H 117 H 137 H Lactic Acid Calcium Phosphorus Magnesium Total Bilirubin AST ALT Ammonia Lactate Dehydrogenase Total Creatine Kinase CK-MB (CK-2) Troponin T NT-Pro-B Natriuret Pep Total Protein Albumin Triglycerides TSH Arterial Blood Glucose Arterial Blood Ionized Calcium Urine pH Urine WBC (Auto) Urine Creatinine 11/12/20 11/12/20 11/12/20 11:26 15:29 21:30 WBC RBC Hgb Hct RDW Lymph % (Auto) [place] % (Auto) Eos % (Auto) Lymph # (Auto) [place] # (Auto) Eos # (Auto) Seg Neutrophils % Lymphocytes % (Manual) Monocytes % (Manual) Seg Neutrophils # Seg Neutrophils # Man Lymphocytes # (Manual) Monocytes # (Manual) D-Dimer Heparin Anti-Xa Level ABG pH POC ABG pCO2 POC ABG pO2 ABG pO2 ABG HCO3 ABG O2 Saturation ABG Base Excess ABG Hemoglobin ABG Oxyhemoglobin ABG Sodium ABG Potassium ABG Chloride ABG Glucose VBG pH Oxyhemoglobin Carboxyhemoglobin Sodium Potassium Chloride Carbon Dioxide BUN Creatinine Glucose POC Glucose 130 H 146 H 123 H Lactic Acid Calcium Phosphorus Magnesium Total Bilirubin AST ALT Ammonia Lactate Dehydrogenase Total Creatine Kinase CK-MB (CK-2) Troponin T NT-Pro-B Natriuret Pep Total Protein Albumin Triglycerides TSH Arterial Blood Glucose Arterial Blood Ionized Calcium Urine pH Urine WBC (Auto) Urine Creatinine 11/13/20 11/13/20 11/13/20 05:52 07:37 15:34 WBC RBC Hgb Hct RDW Lymph % (Auto) [place] % (Auto) Eos % (Auto) Lymph # (Auto) [place] # (Auto) Eos # (Auto) Seg Neutrophils % Lymphocytes % (Manual) Monocytes % (Manual) Seg Neutrophils # Seg Neutrophils # Man Lymphocytes # (Manual) Monocytes # (Manual) D-Dimer Heparin Anti-Xa Level ABG pH POC ABG pCO2 POC ABG pO2 ABG pO2 ABG HCO3 ABG O2 Saturation ABG Base Excess ABG Hemoglobin ABG Oxyhemoglobin ABG Sodium ABG Potassium ABG Chloride ABG Glucose VBG pH Oxyhemoglobin Carboxyhemoglobin Sodium Potassium Chloride Carbon Dioxide BUN Creatinine Glucose POC Glucose 142 H 109 H 127 H Lactic Acid Calcium Phosphorus Magnesium Total Bilirubin AST ALT Ammonia Lactate Dehydrogenase Total Creatine Kinase CK-MB (CK-2) Troponin T NT-Pro-B Natriuret Pep Total Protein Albumin Triglycerides TSH Arterial Blood Glucose Arterial Blood Ionized Calcium Urine pH Urine WBC (Auto) Urine Creatinine 11/13/20 11/13/20 11/13/20 16:43 16:52 21:18 WBC RBC Hgb Hct RDW Lymph % (Auto) [place] % (Auto) Eos % (Auto) Lymph # (Auto) [place] # (Auto) Eos # (Auto) Seg Neutrophils % Lymphocytes % (Manual) Monocytes % (Manual) Seg Neutrophils # Seg Neutrophils # Man Lymphocytes # (Manual) Monocytes # (Manual) D-Dimer Heparin Anti-Xa Level ABG pH POC ABG pCO2 68.4 H POC ABG pO2 ABG pO2 ABG HCO3 ABG O2 Saturation ABG Base Excess ABG Hemoglobin 10.0 L ABG Oxyhemoglobin ABG Sodium ABG Potassium ABG Chloride ABG Glucose 133 H VBG pH Oxyhemoglobin Carboxyhemoglobin Sodium Potassium Chloride Carbon Dioxide BUN Creatinine Glucose POC Glucose 111 H 108 H Lactic Acid Calcium Phosphorus Magnesium Total Bilirubin AST ALT Ammonia Lactate Dehydrogenase Total Creatine Kinase CK-MB (CK-2) Troponin T NT-Pro-B Natriuret Pep Total Protein Albumin Triglycerides TSH Arterial Blood Glucose 133 H Arterial Blood Ionized Calcium Urine pH Urine WBC (Auto) Urine Creatinine 11/14/20 11/14/20 11/14/20 12:07 18:16 23:21 WBC RBC Hgb Hct RDW Lymph % (Auto) [place] % (Auto) Eos % (Auto) Lymph # (Auto) [place] # (Auto) Eos # (Auto) Seg Neutrophils % Lymphocytes % (Manual) Monocytes % (Manual) Seg Neutrophils # Seg Neutrophils # Man Lymphocytes # (Manual) Monocytes # (Manual) D-Dimer Heparin Anti-Xa Level ABG pH POC ABG pCO2 POC ABG pO2 ABG pO2 ABG HCO3 ABG O2 Saturation ABG Base Excess ABG Hemoglobin ABG Oxyhemoglobin ABG Sodium ABG Potassium ABG Chloride ABG Glucose VBG pH Oxyhemoglobin Carboxyhemoglobin Sodium Potassium Chloride Carbon Dioxide BUN Creatinine Glucose POC Glucose 107 H 109 H 114 H Lactic Acid Calcium Phosphorus Magnesium Total Bilirubin AST ALT Ammonia Lactate Dehydrogenase Total Creatine Kinase CK-MB (CK-2) Troponin T NT-Pro-B Natriuret Pep Total Protein Albumin Triglycerides TSH Arterial Blood Glucose Arterial Blood Ionized Calcium Urine pH Urine WBC (Auto) Urine Creatinine 11/15/20 11/15/20 11/15/20 11:14 16:11 23:57 WBC RBC Hgb Hct RDW Lymph % (Auto) [place] % (Auto) Eos % (Auto) Lymph # (Auto) [place] # (Auto) Eos # (Auto) Seg Neutrophils % Lymphocytes % (Manual) Monocytes % (Manual) Seg Neutrophils # Seg Neutrophils # Man Lymphocytes # (Manual) Monocytes # (Manual) D-Dimer Heparin Anti-Xa Level ABG pH POC ABG pCO2 POC ABG pO2 ABG pO2 ABG HCO3 ABG O2 Saturation ABG Base Excess ABG Hemoglobin ABG Oxyhemoglobin ABG Sodium ABG Potassium ABG Chloride ABG Glucose VBG pH Oxyhemoglobin Carboxyhemoglobin Sodium Potassium Chloride Carbon Dioxide BUN Creatinine Glucose POC Glucose 126 H 135 H 128 H Lactic Acid Calcium Phosphorus Magnesium Total Bilirubin AST ALT Ammonia Lactate Dehydrogenase Total Creatine Kinase CK-MB (CK-2) Troponin T NT-Pro-B Natriuret Pep Total Protein Albumin Triglycerides TSH Arterial Blood Glucose Arterial Blood Ionized Calcium Urine pH Urine WBC (Auto) Urine Creatinine 11/16/20 11/16/20 11/16/20 12:16 17:15 23:34 WBC RBC Hgb Hct RDW Lymph % (Auto) [place] % (Auto) Eos % (Auto) Lymph # (Auto) [place] # (Auto) Eos # (Auto) Seg Neutrophils % Lymphocytes % (Manual) Monocytes % (Manual) Seg Neutrophils # Seg Neutrophils # Man Lymphocytes # (Manual) Monocytes # (Manual) D-Dimer Heparin Anti-Xa Level ABG pH POC ABG pCO2 POC ABG pO2 ABG pO2 ABG HCO3 ABG O2 Saturation ABG Base Excess ABG Hemoglobin ABG Oxyhemoglobin ABG Sodium ABG Potassium ABG Chloride ABG Glucose VBG pH Oxyhemoglobin Carboxyhemoglobin Sodium Potassium Chloride Carbon Dioxide BUN Creatinine Glucose POC Glucose 138 H 128 H 146 H Lactic Acid Calcium Phosphorus Magnesium Total Bilirubin AST ALT Ammonia Lactate Dehydrogenase Total Creatine Kinase CK-MB (CK-2) Troponin T NT-Pro-B Natriuret Pep Total Protein Albumin Triglycerides TSH Arterial Blood Glucose Arterial Blood Ionized Calcium Urine pH Urine WBC (Auto) Urine Creatinine 11/17/20 11/17/20 11/17/20 03:48 03:48 05:43 WBC RBC 3.07 L Hgb 9.2 L Hct 28.0 L RDW 15.7 H Lymph % (Auto) [place] % (Auto) 12.4 H Eos % (Auto) 6.9 H Lymph # (Auto) 0.9 L [place] # (Auto) Eos # (Auto) 0.5 H Seg Neutrophils % Lymphocytes % (Manual) Monocytes % (Manual) Seg Neutrophils # Seg Neutrophils # Man Lymphocytes # (Manual) Monocytes # (Manual) D-Dimer Heparin Anti-Xa Level ABG pH POC ABG pCO2 POC ABG pO2 ABG pO2 ABG HCO3 ABG O2 Saturation ABG Base Excess ABG Hemoglobin ABG Oxyhemoglobin ABG Sodium ABG Potassium ABG Chloride ABG Glucose VBG pH Oxyhemoglobin Carboxyhemoglobin Sodium Potassium Chloride Carbon Dioxide 36 H BUN 24 H Creatinine Glucose 126 H POC Glucose 121 H Lactic Acid Calcium Phosphorus Magnesium Total Bilirubin AST ALT Ammonia Lactate Dehydrogenase Total Creatine Kinase CK-MB (CK-2) Troponin T NT-Pro-B Natriuret Pep Total Protein Albumin 2.9 L Triglycerides TSH Arterial Blood Glucose Arterial Blood Ionized Calcium Urine pH Urine WBC (Auto) Urine Creatinine Allied health notes reviewed: nursing
--- NOTE | 2020-11-17 14:16 | XRay Report ---
CHEST 1 VIEW INDICATION: Evaluate for PNA. COMPARISON: 11/12/2020 FINDINGS: Support devices: Tracheostomy remains in good position. Left arm PICC has been removed. Heart: Stable moderate cardiomegaly. Lungs/Pleura: Stable mild central pulmonary venous congestion. No evidence for infiltrate, pleural ef fusion or pneumothorax. Additional findings: None. IMPRESSION: Cardiomegaly and pulmonary venous congestion. No evidence for pneumonia. Signer Name: Uziel Awan Jr, MD Signed: 11/17/2020 2:12 PM Workstation Name: [id number]
[2020-11-17] MEDS: LORazepam 2 MG/ML VIAL IV PRN (15:00)
[2020-11-17] MEDS: ACETAMINOPHEN 325 MG TAB PO PRN (21:44)
[2020-11-17] MEDS: QUEtiapine 200 MG TAB PO SCH (21:44)
[2020-11-18] MEDS: hydrALAZINE 100 MG TAB PO SCH ×3 (05:44→21:40)
[2020-11-18] MEDS: GLYCOPYRROLATE 1 MG TAB PO SCH ×3 (05:44→21:40)
[2020-11-18 06:05] LABS: Basophils % (Auto) 0.4 % (0.0-1.8); Eosinophils # (Auto) 0.4 K/mm3 (0.0-0.4); Eosinophils % (Auto) 5.3 % (0.0-4.3); Hematocrit 28.8 % (35.5-45.6); Hemoglobin 9.2 gm/dl (11.8-15.2); Lymphocytes # (Auto) 0.7 K/mm3 (1.2-5.4); Lymphocytes % (Auto) 9.7 % (13.4-35.0); Mean Corpuscular HGB Conc 32 % (32-34); Mean Corpuscular Volume 91 fl (84-94); Monocytes # (Auto) 0.9 K/mm3 (0.0-0.8); Monocytes % (Auto) 11.3 % (0.0-7.3); Platelet Count 266 K/mm3 (140-440); Red Blood Count 3.17 M/mm3 (3.65-5.03); Red Cell Distribution Width 15.4 % (13.2-15.2)
[2020-11-18 06:26] LABS: Alanine Aminotransferase 9 units/L (7-56); BUN/Creatinine Ratio 24; Blood Urea Nitrogen 22 mg/dL (9-20); Calcium 8.8 mg/dL (8.4-10.2); Hemolysis Index 1
[2020-11-18] MEDS: QUEtiapine 100 MG TAB PO SCH (10:01)
[2020-11-18] MEDS: DOCUSATE SODIUM 100 MG/10 ML ORAL LIQD PO SCH ×2 (10:01→21:39)
[2020-11-18] MEDS: NIFEdipine XL 60 MG TAB PO SCH (10:01)
[2020-11-18] MEDS: LANSOPRAZOLE 30 MG SOLUTAB FEEDTUBE SCH ×2 (10:01→21:40)
[2020-11-18] MEDS: MINOXIDIL 2.5 MG TAB PO SCH (10:01)
[2020-11-18] MEDS: POLYETHYLENE GLYCOL 3350 17 GM POWDER PO SCH (10:01)
[2020-11-18] MEDS: levETIRAcetam 500 MG/5 ML ORAL LIQD PO SCH ×2 (10:01→21:40)
[2020-11-18] MEDS: QUEtiapine 25 MG TAB PO SCH (10:02)
[2020-11-18] MEDS: METOPROLOL TARTRATE 50 MG TAB PO SCH ×3 (10:02→21:40)
[2020-11-18] MEDS: HEPARIN 5,000 UNIT/1 ML VIAL SUB-Q SCH ×2 (10:03→21:39)
--- NOTE | 2020-11-18 10:21 | Progress Note ---
Assessment and Plan Cardiac arrest x3 with ROSC Severe septic and cardiogenic shock Acute respiratory failure with hypoxemia and hypercarbia Acute pulmonary edema MOE (acute kidney injury) Lactic acidosis, severe metabolic acidosis Bilateral pneumonia, aspiration pneumonia Elevated troponins - resume gentle diuresis (Lasix 20 mg p.o. daily) re: secretions, pulmonary edsema - watch BUN/CR & electrolytes closely - continue RTC t-piece as tolerated - continue bronchodilators with routine trach care and pulmonary hygiene per RT - no new issues otherwise, continue care as below; - continue mucomyst nebs - prn gentle diuresis - continue Seroquel for agitation control - continue contact precautions re: MRSA - completed anti-infective's per ID rec's - follow clinically re: fevers / WBC - Monitor hemodynamics closely - wean supplemental oxygen for target O2 sat's > 92% acutely - aspiration precautions - continue lung protective strategies - wean per pulmonary driven protocols otherwise - avoid nephrotoxins, renally dose all medications - continue to avoid benzodiazepine's, reduce the possibility of delirium - continue Scopolamine for secretion control - continue wound care per RN/WCN - prn analgesia per CPOT score - Maintenance of sleep-wake cycle, avoid delirium - continue enteral nutritional support at goal rate as tolerated - G.I. & VTE prophylaxis - PT/OT/ROM exercises - continue mobility protocols for pressure ulcer prophylaxis - Monitor hemodynamics closely - continue other care per attending / other consultants - discharge planning ongoing concurrently .... Re-evaluate in am & prn Subjective Date of service: 11/18/20 Principal diagnosis: Cardiac arrest; Septic Shock; Ac. hypoxemic & hypercapnic resp failure; MOE Interval history: Patient is seen today for: Cardiac arrest with ROSC; Severe septic and cardiogenic shock; Acute respiratory failure with hypoxemia and hypercarbia; Acute pulmonary edema; MOE; Lactic acidosis; severe metabolic acidosis; Bilateral pneumonia; aspiration pneumonia; Elevated troponins Seen and examined at bedside; 24hour events reviewed; nursing and respiratory care staff consulted; no adverse overnight events reported to me; resting pea cefully in bed; Objective Vital Signs - 12hr 11/17/20 11/17/20 11/18/20 22:45 22:52 00:00 Temperature 99.0 F Pulse Rate 82 Respiratory 19 Rate Blood Pressure 134/71 O2 Sat by Pulse Oximetry O2 Sat by Pulse 96 Oximetry [ Assessment] 11/18/20 11/18/2021 04:37 07:26 07:30 Temperature 99.1 F Pulse Rate 89 Respiratory 19 Rate Blood Pressure 169/85 175/89 O2 Sat by Pulse 98 Oximetry O2 Sat by Pulse Oximetry [ Assessment] 11/18/20 10:02 Temperature Pulse Rate 89 Respiratory Rate Blood Pressure 175/89 O2 Sat by Pulse Oximetry O2 Sat by Pulse Oximetry [ Assessment] Constitutional: no acute distress, other (middle aged obese male with mildly increased respiratory efort at rest) Eyes: non-icteric ENT: oropharynx moist, oropharyngeal exudate pre (improved), other (midline tracheostomy) Neck: supple, no lymphadenopathy, no JVD Effort: mildly labored Ascultation: Bilateral: clear, diminished breath sounds, rhonchi (scant) Percussion: Bilateral: not dull Cardiovascular: regular rate and rhythm, other (S1,S2) Gastrointestinal: normoactive bowel sounds, soft, non-tender, non-distended (protuberant) Integumentary: normal Extremities: no cyanosis, no edema, pulses normal, no ischemia or petechiae Neurologic: pupils equal and round, unable to assess, other (encephalopathic) Psychiatric: other (unable to assess re: AMS) CBC and BMP: 11/18/20 05:20 11/18/20 05:20 ABG, PT/INR, D-dimer: ABG ABG pH 7.374 (7.320-7.450) 11/13/20 16:43 POC ABG pCO2 68.4 mmHg (32.0-48.0) H 11/13/20 16:43 ABG pCO2 55.5 mm Hg 10/16/20 05:10 POC ABG pO2 101.9 mmHg (83-108) 11/13/20 16:43 ABG pO2 104.5 mm Hg (80.0-90.0) H 10/16/20 05:10 POC ABG HCO3 39.0 11/13/20 16:43 ABG O2 Saturation 97.8 (0-100) 11/13/20 16:43 PT/INR, D-dimer PT 13.5 Sec. (12.2-14.9) 10/28/20 07:00 INR 1.05 (0.87-1.13) 10/28/20 07:00 D-Dimer 679.5 ng/mlDDU (0-234) H 10/10/20 10:48 Abnormal lab findings: Abnormal Labs 10/10/20 10/10/20 10/10/20 10:46 10:46 10:46 WBC RBC Hgb Hct RDW Lymph % (Auto) [place] % (Auto) Eos % (Auto) Lymph # (Auto) [place] # (Auto) Eos # (Auto) Seg Neutrophils % Lymphocytes % (Manual) Monocytes % (Manual) Seg Neutrophils # Seg Neutrophils # Man Lymphocytes # (Manual) Monocytes # (Manual) D-Dimer Heparin Anti-Xa Level ABG pH POC ABG pCO2 POC ABG pO2 ABG pO2 ABG HCO3 ABG O2 Saturation ABG Base Excess ABG Hemoglobin ABG Oxyhemoglobin ABG Sodium ABG Potassium ABG Chloride ABG Glucose VBG pH Oxyhemoglobin Carboxyhemoglobin Sodium Potassium Chloride Carbon Dioxide BUN Creatinine Glucose POC Glucose Lactic Acid 13.60 H* Calcium Phosphorus Magnesium Total Bilirubin AST ALT Ammonia 214.0 H Lactate Dehydrogenase Total Creatine Kinase CK-MB (CK-2) Troponin T NT-Pro-B Natriuret Pep Total Protein Albumin Triglycerides TSH 6.260 H Arterial Blood Glucose Arterial Blood Ionized Calcium Urine pH Urine WBC (Auto) Urine Creatinine 10/10/20 10/10/20 10/10/20 10:46 10:48 10:48 WBC RBC 5.28 H Hgb 15.5 H Hct 48.8 H RDW Lymph % (Auto) [place] % (Auto) Eos % (Auto) Lymph # (Auto) [place] # (Auto) Eos # (Auto) Seg Neutrophils % Lymphocytes % (Manual) 42.0 H Monocytes % (Manual) Seg Neutrophils # Seg Neutrophils # Man Lymphocytes # (Manual) Monocytes # (Manual) D-Dimer Heparin Anti-Xa Level ABG pH POC ABG pCO2 POC ABG pO2 ABG pO2 ABG HCO3 ABG O2 Saturation ABG Base Excess ABG Hemoglobin ABG Oxyhemoglobin ABG Sodium ABG Potassium ABG Chloride ABG Glucose VBG pH Oxyhemoglobin Carboxyhemoglobin Sodium Potassium 3.3 L Chloride 91.2 L Carbon Dioxide BUN Creatinine 1.8 H Glucose 231 H POC Glucose Lactic Acid Calcium Phosphorus Magnesium Total Bilirubin AST 60 H ALT 57 H Ammonia Lactate Dehydrogenase Total Creatine Kinase CK-MB (CK-2) Troponin T NT-Pro-B Natriuret Pep 1187 H Total Protein 9.0 H Albumin Triglycerides TSH Arterial Blood Glucose Arterial Blood Ionized Calcium Urine pH Urine WBC (Auto) Urine Creatinine 10/10/20 10/10/20 10/10/20 10:48 10:48 10:48 WBC RBC Hgb Hct RDW Lymph % (Auto) [place] % (Auto) Eos % (Auto) Lymph # (Auto) [place] # (Auto) Eos # (Auto) Seg Neutrophils % Lymphocytes % (Manual) Monocytes % (Manual) Seg Neutrophils # Seg Neutrophils # Man Lymphocytes # (Manual) Monocytes # (Manual) D-Dimer 679.5 H Heparin Anti-Xa Level ABG pH POC ABG pCO2 POC ABG pO2 ABG pO2 ABG HCO3 ABG O2 Saturation ABG Base Excess ABG Hemoglobin ABG Oxyhemoglobin ABG Sodium ABG Potassium ABG Chloride ABG Glucose VBG pH 6.870 L* Oxyhemoglobin Carboxyhemoglobin Sodium Potassium Chloride Carbon Dioxide BUN Creatinine Glucose POC Glucose Lactic Acid Calcium Phosphorus Magnesium Total Bilirubin AST ALT Ammonia Lactate Dehydrogenase 386 H Total Creatine Kinase CK-MB (CK-2) Troponin T NT-Pro-B Natriuret Pep Total Protein Albumin Triglycerides TSH Arterial Blood Glucose Arterial Blood Ionized Calcium Urine pH Urine WBC (Auto) Urine Creatinine 10/10/20 10/10/20 10/10/20 14:10 14:20 15:50 WBC RBC Hgb Hct RDW Lymph % (Auto) [place] % (Auto) Eos % (Auto) Lymph # (Auto) [place] # (Auto) Eos # (Auto) Seg Neutrophils % Lymphocytes % (Manual) Monocytes % (Manual) Seg Neutrophils # Seg Neutrophils # Man Lymphocytes # (Manual) Monocytes # (Manual) D-Dimer Heparin Anti-Xa Level ABG pH 7.175 L 7.247 L POC ABG pCO2 85.0 H POC ABG pO2 43.7 L ABG pO2 60.3 L ABG HCO3 32.0 H ABG O2 Saturation 86.1 L ABG Base Excess ABG Hemoglobin ABG Oxyhemoglobin 67.7 L ABG Sodium ABG Potassium ABG Chloride ABG Glucose 247 H VBG pH Oxyhemoglobin 84.4 L Carboxyhemoglobin Sodium Potassium Chloride Carbon Dioxide BUN Creatinine Glucose POC Glucose Lactic Acid 4.00 H* Calcium Phosphorus Magnesium Total Bilirubin AST ALT Ammonia Lactate Dehydrogenase Total Creatine Kinase CK-MB (CK-2) Troponin T NT-Pro-B Natriuret Pep Total Protein Albumin Triglycerides TSH Arterial Blood Glucose 247 H Arterial Blood Ionized Calcium 4.4 L Urine pH Urine WBC (Auto) Urine Creatinine 10/10/20 10/10/20 10/10/20 15:50 16:22 18:18 WBC RBC Hgb Hct RDW Lymph % (Auto) [place] % (Auto) Eos % (Auto) Lymph # (Auto) [place] # (Auto) Eos # (Auto) Seg Neutrophils % Lymphocytes % (Manual) Monocytes % (Manual) Seg Neutrophils # Seg Neutrophils # Man Lymphocytes # (Manual) Monocytes # (Manual) D-Dimer Heparin Anti-Xa Level ABG pH 7.171 L POC ABG pCO2 96.6 H POC ABG pO2 55.3 L ABG pO2 ABG HCO3 ABG O2 Saturation ABG Base Excess ABG Hemoglobin ABG Oxyhemoglobin 81.4 L ABG Sodium ABG Potassium ABG Chloride ABG Glucose 115 H VBG pH Oxyhemoglobin Carboxyhemoglobin Sodium Potassium Chloride Carbon Dioxide BUN Creatinine Glucose POC Glucose 132 H Lactic Acid Calcium Phosphorus Magnesium Total Bilirubin AST ALT Ammonia Lactate Dehydrogenase Total Creatine Kinase 1192 H CK-MB (CK-2) 21.7 H Troponin T 0.377 H* D NT-Pro-B Natriuret Pep Total Protein Albumin Triglycerides TSH Arterial Blood Glucose 115 H Arterial Blood Ionized Calcium Urine pH Urine WBC (Auto) Urine Creatinine 10/10/20 10/10/20 10/10/20 18:18 18:18 22:49 WBC 23.0 H RBC 5.12 H Hgb Hct RDW Lymph % (Auto) [place] % (Auto) Eos % (Auto) Lymph # (Auto) [place] # (Auto) Eos # (Auto) Seg Neutrophils % Lymphocytes % (Manual) 4.0 L Monocytes % (Manual) 9.0 H Seg Neutrophils # Seg Neutrophils # Man 13.8 H Lymphocytes # (Manual) 0.9 L Monocytes # (Manual) 2.1 H D-Dimer Heparin Anti-Xa Level ABG pH POC ABG pCO2 POC ABG pO2 ABG pO2 ABG HCO3 ABG O2 Saturation ABG Base Excess ABG Hemoglobin ABG Oxyhemoglobin ABG Sodium ABG Potassium ABG Chloride ABG Glucose VBG pH Oxyhemoglobin Carboxyhemoglobin Sodium 146 H Potassium Chloride Carbon Dioxide 34 H D BUN 27 H Creatinine 2.7 H Glucose 102 H POC Glucose Lactic Acid Calcium Phosphorus Magnesium Total Bilirubin AST 90 H ALT 66 H Ammonia Lactate Dehydrogenase Total Creatine Kinase CK-MB (CK-2) Troponin T 0.273 H* D NT-Pro-B Natriuret Pep Total Protein Albumin Triglycerides TSH Arterial Blood Glucose Arterial Blood Ionized Calcium Urine pH Urine WBC (Auto) Urine Creatinine 10/11/20 10/11/20 10/11/20 02:00 02:00 02:00 WBC 17.3 H RBC Hgb Hct RDW Lymph % (Auto) 3.9 L [place] % (Auto) Eos % (Auto) Lymph # (Auto) 0.7 L [place] # (Auto) Eos # (Auto) Seg Neutrophils % 93.0 H Lymphocytes % (Manual) Monocytes % (Manual) Seg Neutrophils # 16.1 H Seg Neutrophils # Man Lymphocytes # (Manual) Monocytes # (Manual) D-Dimer Heparin Anti-Xa Level ABG pH POC ABG pCO2 POC ABG pO2 ABG pO2 ABG HCO3 ABG O2 Saturation ABG Base Excess ABG Hemoglobin ABG Oxyhemoglobin ABG Sodium ABG Potassium ABG Chloride ABG Glucose VBG pH Oxyhemoglobin Carboxyhemoglobin Sodium 149 H Potassium 3.3 L Chloride 95.3 L Carbon Dioxide 37 H BUN 29 H Creatinine 2.6 H Glucose POC Glucose Lactic Acid Calcium Phosphorus Magnesium Total Bilirubin AST 80 H ALT 59 H Ammonia Lactate Dehydrogenase Total Creatine Kinase CK-MB (CK-2) Troponin T 0.201 H* D NT-Pro-B Natriuret Pep Total Protein Albumin 3.6 L Triglycerides TSH Arterial Blood Glucose Arterial Blood Ionized Calcium Urine pH Urine WBC (Auto) Urine Creatinine 10/11/20 10/11/20 10/11/20 03:51 08:35 11:15 WBC RBC Hgb Hct RDW Lymph % (Auto) [place] % (Auto) Eos % (Auto) Lymph # (Auto) [place] # (Auto) Eos # (Auto) Seg Neutrophils % Lymphocytes % (Manual) Monocytes % (Manual) Seg Neutrophils # Seg Neutrophils # Man Lymphocytes # (Manual) Monocytes # (Manual) D-Dimer Heparin Anti-Xa Level 0.22 L ABG pH 7.491 H POC ABG pCO2 57.6 H POC ABG pO2 ABG pO2 ABG HCO3 ABG O2 Saturation ABG Base Excess ABG Hemoglobin ABG Oxyhemoglobin ABG Sodium 150.0 H ABG Potassium 3.1 L ABG Chloride 96.0 L ABG Glucose 122 H VBG pH Oxyhemoglobin Carboxyhemoglobin Sodium Potassium Chloride Carbon Dioxide BUN Creatinine Glucose POC Glucose 151 H Lactic Acid Calcium Phosphorus Magnesium Total Bilirubin AST ALT Ammonia Lactate Dehydrogenase Total Creatine Kinase CK-MB (CK-2) Troponin T NT-Pro-B Natriuret Pep Total Protein Albumin Triglycerides TSH Arterial Blood Glucose 122 H Arterial Blood Ionized Calcium 3.9 L Urine pH Urine WBC (Auto) Urine Creatinine 10/11/20 10/11/20 10/11/20 13:30 13:30 13:30 WBC 15.0 H RBC Hgb Hct RDW Lymph % (Auto) [place] % (Auto) Eos % (Auto) Lymph # (Auto) [place] # (Auto) Eos # (Auto) Seg Neutrophils % Lymphocytes % (Manual) Monocytes % (Manual) Seg Neutrophils # Seg Neutrophils # Man Lymphocytes # (Manual) Monocytes # (Manual) D-Dimer Heparin Anti-Xa Level ABG pH POC ABG pCO2 POC ABG pO2 ABG pO2 ABG HCO3 ABG O2 Saturation ABG Base Excess ABG Hemoglobin ABG Oxyhemoglobin ABG Sodium ABG Potassium ABG Chloride ABG Glucose VBG pH Oxyhemoglobin Carboxyhemoglobin Sodium Potassium Chloride Carbon Dioxide BUN Creatinine Glucose POC Glucose Lactic Acid Calcium Phosphorus Magnesium Total Bilirubin AST ALT Ammonia Lactate Dehydrogenase Total Creatine Kinase CK-MB (CK-2) Troponin T NT-Pro-B Natriuret Pep Total Protein Albumin Triglycerides TSH Arterial Blood Glucose Arterial Blood Ionized Calcium Urine pH 9.0 H Urine WBC (Auto) 18.0 H Urine Creatinine 80.5 H 10/11/20 10/11/20 10/12/20 17:17 23:14 03:53 WBC RBC Hgb Hct RDW Lymph % (Auto) [place] % (Auto) Eos % (Auto) Lymph # (Auto) [place] # (Auto) Eos # (Auto) Seg Neutrophils % Lymphocytes % (Manual) Monocytes % (Manual) Seg Neutrophils # Seg Neutrophils # Man Lymphocytes # (Manual) Monocytes # (Manual) D-Dimer Heparin Anti-Xa Level ABG pH 7.545 H POC ABG pCO2 54.6 H POC ABG pO2 231.9 H ABG pO2 ABG HCO3 ABG O2 Saturation ABG Base Excess ABG Hemoglobin ABG Oxyhemoglobin 98.5 H ABG Sodium 150.5 H ABG Potassium 3.2 L ABG Chloride 96.0 L ABG Glucose 148 H VBG pH Oxyhemoglobin Carboxyhemoglobin Sodium Potassium Chloride Carbon Dioxide BUN Creatinine Glucose POC Glucose 121 H 135 H Lactic Acid Calcium Phosphorus Magnesium Total Bilirubin AST ALT Ammonia Lactate Dehydrogenase Total Creatine Kinase CK-MB (CK-2) Troponin T NT-Pro-B Natriuret Pep Total Protein Albumin Triglycerides TSH Arterial Blood Glucose 148 H Arterial Blood Ionized Calcium 3.8 L Urine pH Urine WBC (Auto) Urine Creatinine 10/12/20 10/12/20 10/12/20 04:00 05:10 05:12 WBC 14.3 H RBC Hgb 11.6 L Hct 35.2 L RDW Lymph % (Auto) [place] % (Auto) Eos % (Auto) Lymph # (Auto) [place] # (Auto) Eos # (Auto) Seg Neutrophils % Lymphocytes % (Manual) Monocytes % (Manual) Seg Neutrophils # Seg Neutrophils # Man Lymphocytes # (Manual) Monocytes # (Manual) D-Dimer Heparin Anti-Xa Level ABG pH POC ABG pCO2 POC ABG pO2 ABG pO2 ABG HCO3 ABG O2 Saturation ABG Base Excess ABG Hemoglobin ABG Oxyhemoglobin ABG Sodium ABG Potassium ABG Chloride ABG Glucose VBG pH Oxyhemoglobin Carboxyhemoglobin Sodium 155 H Potassium 3.3 L Chloride 97.9 L Carbon Dioxide 47 H* D BUN 50 H Creatinine 3.4 H Glucose 146 H POC Glucose 137 H Lactic Acid Calcium 8.0 L Phosphorus Magnesium Total Bilirubin AST ALT Ammonia Lactate Dehydrogenase Total Creatine Kinase CK-MB (CK-2) Troponin T 0.125 H* D NT-Pro-B Natriuret Pep Total Protein Albumin Triglycerides TSH Arterial Blood Glucose Arterial Blood Ionized Calcium Urine pH Urine WBC (Auto) Urine Creatinine 10/12/20 10/12/20 10/12/20 11:39 16:01 19:49 WBC RBC Hgb Hct RDW Lymph % (Auto) [place] % (Auto) Eos % (Auto) Lymph # (Auto) [place] # (Auto) Eos # (Auto) Seg Neutrophils % Lymphocytes % (Manual) Monocytes % (Manual) Seg Neutrophils # Seg Neutrophils # Man Lymphocytes # (Manual) Monocytes # (Manual) D-Dimer Heparin Anti-Xa Level ABG pH POC ABG pCO2 POC ABG pO2 ABG pO2 ABG HCO3 ABG O2 Saturation ABG Base Excess ABG Hemoglobin ABG Oxyhemoglobin ABG Sodium ABG Potassium ABG Chloride ABG Glucose VBG pH Oxyhemoglobin Carboxyhemoglobin Sodium 157 H Potassium 3.3 L Chloride Carbon Dioxide 47 H* BUN 52 H Creatinine 3.0 H Glucose 137 H POC Glucose 138 H 119 H Lactic Acid Calcium 8.0 L Phosphorus Magnesium Total Bilirubin AST ALT Ammonia Lactate Dehydrogenase Total Creatine Kinase CK-MB (CK-2) Troponin T NT-Pro-B Natriuret Pep Total Protein Albumin Triglycerides TSH Arterial Blood Glucose Arterial Blood Ionized Calcium Urine pH Urine WBC (Auto) Urine Creatinine 10/12/20 10/13/20 10/13/20 23:37 02:28 04:52 WBC RBC Hgb Hct RDW Lymph % (Auto) [place] % (Auto) Eos % (Auto) Lymph # (Auto) [place] # (Auto) Eos # (Auto) Seg Neutrophils % Lymphocytes % (Manual) Monocytes % (Manual) Seg Neutrophils # Seg Neutrophils # Man Lymphocytes # (Manual) Monocytes # (Manual) D-Dimer Heparin Anti-Xa Level ABG pH 7.485 H POC ABG pCO2 57.1 H POC ABG pO2 ABG pO2 ABG HCO3 ABG O2 Saturation ABG Base Excess ABG Hemoglobin ABG Oxyhemoglobin ABG Sodium 152.4 H ABG Potassium ABG Chloride ABG Glucose 129 H VBG pH Oxyhemoglobin Carboxyhemoglobin Sodium 155 H Potassium Chloride Carbon Dioxide 45 H* BUN 52 H Creatinine 2.7 H Glucose 121 H POC Glucose 131 H Lactic Acid Calcium Phosphorus Magnesium 2.40 H Total Bilirubin AST ALT Ammonia Lactate Dehydrogenase Total Creatine Kinase CK-MB (CK-2) Troponin T NT-Pro-B Natriuret Pep Total Protein Albumin Triglycerides 278 H TSH Arterial Blood Glucose 129 H Arterial Blood Ionized Calcium 4.1 L Urine pH Urine WBC (Auto) Urine Creatinine 10/13/20 10/13/20 10/13/20 04:52 05:13 11:37 WBC 14.7 H RBC Hgb 11.7 L Hct RDW 15.8 H Lymph % (Auto) [place] % (Auto) Eos % (Auto) Lymph # (Auto) [place] # (Auto) Eos # (Auto) Seg Neutrophils % Lymphocytes % (Manual) Monocytes % (Manual) Seg Neutrophils # Seg Neutrophils # Man Lymphocytes # (Manual) Monocytes # (Manual) D-Dimer Heparin Anti-Xa Level ABG pH POC ABG pCO2 POC ABG pO2 ABG pO2 ABG HCO3 ABG O2 Saturation ABG Base Excess ABG Hemoglobin ABG Oxyhemoglobin ABG Sodium ABG Potassium ABG Chloride ABG Glucose VBG pH Oxyhemoglobin Carboxyhemoglobin Sodium Potassium Chloride Carbon Dioxide BUN Creatinine Glucose POC Glucose 116 H 116 H Lactic Acid Calcium Phosphorus Magnesium Total Bilirubin AST ALT Ammonia Lactate Dehydrogenase Total Creatine Kinase CK-MB (CK-2) Troponin T NT-Pro-B Natriuret Pep Total Protein Albumin Triglycerides TSH Arterial Blood Glucose Arterial Blood Ionized Calcium Urine pH Urine WBC (Auto) Urine Creatinine 10/13/20 10/14/20 10/14/20 17:50 03:45 04:46 WBC 11.1 H RBC Hgb Hct RDW 15.3 H Lymph % (Auto) [place] % (Auto) Eos % (Auto) Lymph # (Auto) [place] # (Auto) Eos # (Auto) Seg Neutrophils % Lymphocytes % (Manual) Monocytes % (Manual) Seg Neutrophils # Seg Neutrophils # Man Lymphocytes # (Manual) Monocytes # (Manual) D-Dimer Heparin Anti-Xa Level ABG pH POC ABG pCO2 59.6 H POC ABG pO2 ABG pO2 ABG HCO3 ABG O2 Saturation ABG Base Excess ABG Hemoglobin ABG Oxyhemoglobin ABG Sodium 151.4 H ABG Potassium 3.3 L ABG Chloride ABG Glucose 138 H VBG pH Oxyhemoglobin Carboxyhemoglobin 1.6 H Sodium Potassium Chloride Carbon Dioxide BUN Creatinine Glucose POC Glucose 140 H Lactic Acid Calcium Phosphorus Magnesium Total Bilirubin AST ALT Ammonia Lactate Dehydrogenase Total Creatine Kinase CK-MB (CK-2) Troponin T NT-Pro-B Natriuret Pep Total Protein Albumin Triglycerides TSH Arterial Blood Glucose 138 H Arterial Blood Ionized Calcium 4.5 L Urine pH Urine WBC (Auto) Urine Creatinine 10/14/20 10/14/20 10/14/20 04:46 05:10 11:11 WBC RBC Hgb Hct RDW Lymph % (Auto) [place] % (Auto) Eos % (Auto) Lymph # (Auto) [place] # (Auto) Eos # (Auto) Seg Neutrophils % Lymphocytes % (Manual) Monocytes % (Manual) Seg Neutrophils # Seg Neutrophils # Man Lymphocytes # (Manual) Monocytes # (Manual) D-Dimer Heparin Anti-Xa Level ABG pH POC ABG pCO2 POC ABG pO2 ABG pO2 ABG HCO3 ABG O2 Saturation ABG Base Excess ABG Hemoglobin ABG Oxyhemoglobin ABG Sodium ABG Potassium ABG Chloride ABG Glucose VBG pH Oxyhemoglobin Carboxyhemoglobin Sodium 152 H Potassium 3.5 L Chloride Carbon Dioxide 38 H D BUN 46 H Creatinine 2.3 H Glucose 127 H POC Glucose 116 H 114 H Lactic Acid Calcium Phosphorus Magnesium Total Bilirubin AST ALT Ammonia Lactate Dehydrogenase Total Creatine Kinase CK-MB (CK-2) Troponin T NT-Pro-B Natriuret Pep Total Protein Albumin Triglycerides TSH Arterial Blood Glucose Arterial Blood Ionized Calcium Urine pH Urine WBC (Auto) Urine Creatinine 10/14/20 10/14/20 10/15/20 18:53 23:23 04:12 WBC RBC Hgb Hct RDW Lymph % (Auto) [place] % (Auto) Eos % (Auto) Lymph # (Auto) [place] # (Auto) Eos # (Auto) Seg Neutrophils % Lymphocytes % (Manual) Monocytes % (Manual) Seg Neutrophils # Seg Neutrophils # Man Lymphocytes # (Manual) Monocytes # (Manual) D-Dimer Heparin Anti-Xa Level ABG pH POC ABG pCO2 POC ABG pO2 ABG pO2 ABG HCO3 ABG O2 Saturation ABG Base Excess ABG Hemoglobin ABG Oxyhemoglobin ABG Sodium ABG Potassium ABG Chloride ABG Glucose VBG pH Oxyhemoglobin Carboxyhemoglobin Sodium 149 H Potassium 3.2 L Chloride Carbon Dioxide 37 H BUN 40 H Creatinine 2.0 H Glucose 124 H POC Glucose 128 H 113 H Lactic Acid Calcium Phosphorus Magnesium Total Bilirubin AST ALT Ammonia Lactate Dehydrogenase Total Creatine Kinase CK-MB (CK-2) Troponin T NT-Pro-B Natriuret Pep Total Protein Albumin Triglycerides TSH Arterial Blood Glucose Arterial Blood Ionized Calcium Urine pH Urine WBC (Auto) Urine Creatinine 10/15/20 10/15/20 10/15/20 04:22 11:39 17:36 WBC RBC Hgb Hct RDW Lymph % (Auto) [place] % (Auto) Eos % (Auto) Lymph # (Auto) [place] # (Auto) Eos # (Auto) Seg Neutrophils % Lymphocytes % (Manual) Monocytes % (Manual) Seg Neutrophils # Seg Neutrophils # Man Lymphocytes # (Manual) Monocytes # (Manual) D-Dimer Heparin Anti-Xa Level ABG pH POC ABG pCO2 POC ABG pO2 ABG pO2 115.0 H ABG HCO3 38.1 H ABG O2 Saturation ABG Base Excess 11.3 H ABG Hemoglobin 11.0 L ABG Oxyhemoglobin ABG Sodium ABG Potassium ABG Chloride ABG Glucose VBG pH Oxyhemoglobin Carboxyhemoglobin Sodium Potassium Chloride Carbon Dioxide BUN Creatinine Glucose POC Glucose 123 H 118 H Lactic Acid Calcium Phosphorus Magnesium Total Bilirubin AST ALT Ammonia Lactate Dehydrogenase Total Creatine Kinase CK-MB (CK-2) Troponin T NT-Pro-B Natriuret Pep Total Protein Albumin Triglycerides TSH Arterial Blood Glucose Arterial Blood Ionized Calcium Urine pH Urine WBC (Auto) Urine Creatinine 10/15/20 10/16/20 10/16/20 23:18 03:13 05:10 WBC RBC Hgb Hct RDW Lymph % (Auto) [place] % (Auto) Eos % (Auto) Lymph # (Auto) [place] # (Auto) Eos # (Auto) Seg Neutrophils % Lymphocytes % (Manual) Monocytes % (Manual) Seg Neutrophils # Seg Neutrophils # Man Lymphocytes # (Manual) Monocytes # (Manual) D-Dimer Heparin Anti-Xa Level ABG pH POC ABG pCO2 POC ABG pO2 ABG pO2 104.5 H ABG HCO3 35.1 H ABG O2 Saturation ABG Base Excess 9.5 H ABG Hemoglobin 7.9 L ABG Oxyhemoglobin ABG Sodium ABG Potassium ABG Chloride ABG Glucose VBG pH Oxyhemoglobin Carboxyhemoglobin Sodium Potassium 3.3 L Chloride Carbon Dioxide 33 H BUN 37 H Creatinine 1.4 H Glucose 148 H POC Glucose 135 H Lactic Acid Calcium Phosphorus Magnesium 2.40 H Total Bilirubin AST ALT Ammonia Lactate Dehydrogenase Total Creatine Kinase CK-MB (CK-2) Troponin T NT-Pro-B Natriuret Pep Total Protein Albumin Triglycerides TSH Arterial Blood Glucose Arterial Blood Ionized Calcium Urine pH Urine WBC (Auto) Urine Creatinine 10/16/20 10/16/20 10/16/20 06:36 11:08 17:07 WBC RBC Hgb Hct RDW Lymph % (Auto) [place] % (Auto) Eos % (Auto) Lymph # (Auto) [place] # (Auto) Eos # (Auto) Seg Neutrophils % Lymphocytes % (Manual) Monocytes % (Manual) Seg Neutrophils # Seg Neutrophils # Man Lymphocytes # (Manual) Monocytes # (Manual) D-Dimer Heparin Anti-Xa Level ABG pH POC ABG pCO2 POC ABG pO2 ABG pO2 ABG HCO3 ABG O2 Saturation ABG Base Excess ABG Hemoglobin ABG Oxyhemoglobin ABG Sodium ABG Potassium ABG Chloride ABG Glucose VBG pH Oxyhemoglobin Carboxyhemoglobin Sodium Potassium Chloride Carbon Dioxide BUN Creatinine Glucose POC Glucose 150 H 111 H 132 H Lactic Acid Calcium Phosphorus Magnesium Total Bilirubin AST ALT Ammonia Lactate Dehydrogenase Total Creatine Kinase CK-MB (CK-2) Troponin T NT-Pro-B Natriuret Pep Total Protein Albumin Triglycerides TSH Arterial Blood Glucose Arterial Blood Ionized Calcium Urine pH Urine WBC (Auto) Urine Creatinine 10/16/20 10/17/20 10/17/20 23:38 03:32 03:32 WBC RBC Hgb Hct RDW Lymph % (Auto) [place] % (Auto) Eos % (Auto) Lymph # (Auto) [place] # (Auto) Eos # (Auto) Seg Neutrophils % Lymphocytes % (Manual) Monocytes % (Manual) Seg Neutrophils # Seg Neutrophils # Man Lymphocytes # (Manual) Monocytes # (Manual) D-Dimer Heparin Anti-Xa Level ABG pH POC ABG pCO2 POC ABG pO2 ABG pO2 ABG HCO3 ABG O2 Saturation ABG Base Excess ABG Hemoglobin ABG Oxyhemoglobin ABG Sodium ABG Potassium ABG Chloride ABG Glucose VBG pH Oxyhemoglobin Carboxyhemoglobin Sodium 146 H Potassium Chloride Carbon Dioxide 32 H BUN 57 H Creatinine 2.4 H D Glucose 124 H POC Glucose 117 H Lactic Acid Calcium Phosphorus 5.20 H D Magnesium Total Bilirubin AST ALT Ammonia Lactate Dehydrogenase Total Creatine Kinase CK-MB (CK-2) Troponin T NT-Pro-B Natriuret Pep Total Protein Albumin Triglycerides TSH Arterial Blood Glucose Arterial Blood Ionized Calcium Urine pH Urine WBC (Auto) Urine Creatinine 10/17/20 10/17/20 10/18/20 05:10 17:33 00:13 WBC RBC Hgb Hct RDW Lymph % (Auto) [place] % (Auto) Eos % (Auto) Lymph # (Auto) [place] # (Auto) Eos # (Auto) Seg Neutrophils % Lymphocytes % (Manual) Monocytes % (Manual) Seg Neutrophils # Seg Neutrophils # Man Lymphocytes # (Manual) Monocytes # (Manual) D-Dimer Heparin Anti-Xa Level ABG pH POC ABG pCO2 POC ABG pO2 ABG pO2 ABG HCO3 ABG O2 Saturation ABG Base Excess ABG Hemoglobin ABG Oxyhemoglobin ABG Sodium ABG Potassium ABG Chloride ABG Glucose VBG pH Oxyhemoglobin Carboxyhemoglobin Sodium Potassium Chloride Carbon Dioxide BUN Creatinine Glucose POC Glucose 122 H 121 H 23 L Lactic Acid Calcium Phosphorus Magnesium Total Bilirubin AST ALT Ammonia Lactate Dehydrogenase Total Creatine Kinase CK-MB (CK-2) Troponin T NT-Pro-B Natriuret Pep Total Protein Albumin Triglycerides TSH Arterial Blood Glucose Arterial Blood Ionized Calcium Urine pH Urine WBC (Auto) Urine Creatinine 10/18/20 10/18/20 10/18/20 00:16 03:27 03:27 WBC RBC Hgb 11.7 L Hct RDW Lymph % (Auto) [place] % (Auto) Eos % (Auto) Lymph # (Auto) [place] # (Auto) Eos # (Auto) Seg Neutrophils % Lymphocytes % (Manual) Monocytes % (Manual) Seg Neutrophils # Seg Neutrophils # Man Lymphocytes # (Manual) Monocytes # (Manual) D-Dimer Heparin Anti-Xa Level ABG pH POC ABG pCO2 POC ABG pO2 ABG pO2 ABG HCO3 ABG O2 Saturation ABG Base Excess ABG Hemoglobin ABG Oxyhemoglobin ABG Sodium ABG Potassium ABG Chloride ABG Glucose VBG pH Oxyhemoglobin Carboxyhemoglobin Sodium Potassium Chloride 97.6 L Carbon Dioxide BUN 90 H Creatinine 3.3 H Glucose 146 H POC Glucose 134 H Lactic Acid Calcium Phosphorus Magnesium Total Bilirubin 1.70 H AST ALT Ammonia Lactate Dehydrogenase Total Creatine Kinase CK-MB (CK-2) Troponin T NT-Pro-B Natriuret Pep Total Protein Albumin 3.1 L Triglycerides TSH Arterial Blood Glucose Arterial Blood Ionized Calcium Urine pH Urine WBC (Auto) Urine Creatinine 10/18/20 10/18/20 10/18/20 05:09 11:19 17:15 WBC RBC Hgb Hct RDW Lymph % (Auto) [place] % (Auto) Eos % (Auto) Lymph # (Auto) [place] # (Auto) Eos # (Auto) Seg Neutrophils % Lymphocytes % (Manual) Monocytes % (Manual) Seg Neutrophils # Seg Neutrophils # Man Lymphocytes # (Manual) Monocytes # (Manual) D-Dimer Heparin Anti-Xa Level ABG pH POC ABG pCO2 POC ABG pO2 ABG pO2 ABG HCO3 ABG O2 Saturation ABG Base Excess ABG Hemoglobin ABG Oxyhemoglobin ABG Sodium ABG Potassium ABG Chloride ABG Glucose VBG pH Oxyhemoglobin Carboxyhemoglobin Sodium Potassium Chloride Carbon Dioxide BUN Creatinine Glucose POC Glucose 144 H 145 H 151 H Lactic Acid Calcium Phosphorus Magnesium Total Bilirubin AST ALT Ammonia Lactate Dehydrogenase Total Creatine Kinase CK-MB (CK-2) Troponin T NT-Pro-B Natriuret Pep Total Protein Albumin Triglycerides TSH Arterial Blood Glucose Arterial Blood Ionized Calcium Urine pH Urine WBC (Auto) Urine Creatinine 10/18/20 10/18/20 10/19/20 23:16 Unknown 04:55 WBC RBC Hgb Hct RDW Lymph % (Auto) [place] % (Auto) Eos % (Auto) Lymph # (Auto) [place] # (Auto) Eos # (Auto) Seg Neutrophils % Lymphocytes % (Manual) Monocytes % (Manual) Seg Neutrophils # Seg Neutrophils # Man Lymphocytes # (Manual) Monocytes # (Manual) D-Dimer Heparin Anti-Xa Level ABG pH POC ABG pCO2 POC ABG pO2 ABG pO2 ABG HCO3 ABG O2 Saturation ABG Base Excess ABG Hemoglobin ABG Oxyhemoglobin ABG Sodium ABG Potassium ABG Chloride ABG Glucose VBG pH Oxyhemoglobin Carboxyhemoglobin Sodium Potassium Chloride Carbon Dioxide BUN 104 H Creatinine 3.1 H Glucose 139 H POC Glucose 123 H Lactic Acid Calcium Phosphorus Magnesium Total Bilirubin AST ALT Ammonia Lactate Dehydrogenase Total Creatine Kinase CK-MB (CK-2) Troponin T NT-Pro-B Natriuret Pep Total Protein Albumin Triglycerides TSH Arterial Blood Glucose Arterial Blood Ionized Calcium Urine pH Urine WBC (Auto) 115.0 H Urine Creatinine 10/19/20 10/19/20 10/19/20 04:55 11:35 13:14 WBC 15.1 H RBC Hgb 11.1 L Hct 34.4 L RDW Lymph % (Auto) 4.2 L [place] % (Auto) 11.9 H Eos % (Auto) Lymph # (Auto) 0.6 L [place] # (Auto) 1.8 H Eos # (Auto) Seg Neutrophils % 82.0 H Lymphocytes % (Manual) Monocytes % (Manual) Seg Neutrophils # 12.4 H Seg Neutrophils # Man Lymphocytes # (Manual) Monocytes # (Manual) D-Dimer Heparin Anti-Xa Level ABG pH POC ABG pCO2 POC ABG pO2 ABG pO2 ABG HCO3 ABG O2 Saturation ABG Base Excess ABG Hemoglobin ABG Oxyhemoglobin ABG Sodium ABG Potassium ABG Chloride ABG Glucose VBG pH Oxyhemoglobin Carboxyhemoglobin Sodium Potassium Chloride Carbon Dioxide BUN Creatinine Glucose POC Glucose 136 H Lactic Acid Calcium Phosphorus Magnesium Total Bilirubin AST ALT Ammonia Lactate Dehydrogenase Total Creatine Kinase CK-MB (CK-2) Troponin T NT-Pro-B Natriuret Pep Total Protein Albumin Triglycerides TSH Arterial Blood Glucose Arterial Blood Ionized Calcium Urine pH Urine WBC (Auto) Urine Creatinine 93.7 H 10/19/20 10/19/20 10/20/20 17:53 23:39 04:30 WBC RBC Hgb Hct RDW Lymph % (Auto) [place] % (Auto) Eos % (Auto) Lymph # (Auto) [place] # (Auto) Eos # (Auto) Seg Neutrophils % Lymphocytes % (Manual) Monocytes % (Manual) Seg Neutrophils # Seg Neutrophils # Man Lymphocytes # (Manual) Monocytes # (Manual) D-Dimer Heparin Anti-Xa Level ABG pH POC ABG pCO2 POC ABG pO2 ABG pO2 ABG HCO3 ABG O2 Saturation ABG Base Excess ABG Hemoglobin ABG Oxyhemoglobin ABG Sodium ABG Potassium ABG Chloride ABG Glucose VBG pH Oxyhemoglobin Carboxyhemoglobin Sodium Potassium Chloride Carbon Dioxide BUN 104 H Creatinine 2.8 H Glucose 151 H POC Glucose 137 H 133 H Lactic Acid Calcium Phosphorus Magnesium Total Bilirubin AST ALT Ammonia Lactate Dehydrogenase Total Creatine Kinase CK-MB (CK-2) Troponin T NT-Pro-B Natriuret Pep Total Protein Albumin Triglycerides TSH Arterial Blood Glucose Arterial Blood Ionized Calcium Urine pH Urine WBC (Auto) Urine Creatinine 10/20/20 10/20/20 10/20/20 04:30 05:38 11:34 WBC 17.9 H RBC Hgb 11.7 L Hct RDW Lymph % (Auto) [place] % (Auto) Eos % (Auto) Lymph # (Auto) [place] # (Auto) Eos # (Auto) Seg Neutrophils % Lymphocytes % (Manual) Monocytes % (Manual) Seg Neutrophils # Seg Neutrophils # Man Lymphocytes # (Manual) Monocytes # (Manual) D-Dimer Heparin Anti-Xa Level ABG pH POC ABG pCO2 POC ABG pO2 ABG pO2 ABG HCO3 ABG O2 Saturation ABG Base Excess ABG Hemoglobin ABG Oxyhemoglobin ABG Sodium ABG Potassium ABG Chloride ABG Glucose VBG pH Oxyhemoglobin Carboxyhemoglobin Sodium Potassium Chloride Carbon Dioxide BUN Creatinine Glucose POC Glucose 164 H 148 H Lactic Acid Calcium Phosphorus Magnesium Total Bilirubin AST ALT Ammonia Lactate Dehydrogenase Total Creatine Kinase CK-MB (CK-2) Troponin T NT-Pro-B Natriuret Pep Total Protein Albumin Triglycerides TSH Arterial Blood Glucose Arterial Blood Ionized Calcium Urine pH Urine WBC (Auto) Urine Creatinine 10/20/20 10/20/20 10/20/20 17:40 20:20 23:29 WBC RBC Hgb Hct RDW Lymph % (Auto) [place] % (Auto) Eos % (Auto) Lymph # (Auto) [place] # (Auto) Eos # (Auto) Seg Neutrophils % Lymphocytes % (Manual) Monocytes % (Manual) Seg Neutrophils # Seg Neutrophils # Man Lymphocytes # (Manual) Monocytes # (Manual) D-Dimer Heparin Anti-Xa Level ABG pH 7.292 L POC ABG pCO2 68.5 H POC ABG pO2 ABG pO2 ABG HCO3 ABG O2 Saturation ABG Base Excess ABG Hemoglobin 11.6 L ABG Oxyhemoglobin ABG Sodium ABG Potassium ABG Chloride ABG Glucose 145 H VBG pH Oxyhemoglobin Carboxyhemoglobin Sodium Potassium Chloride Carbon Dioxide BUN Creatinine Glucose POC Glucose 130 H 136 H Lactic Acid Calcium Phosphorus Magnesium Total Bilirubin AST ALT Ammonia Lactate Dehydrogenase Total Creatine Kinase CK-MB (CK-2) Troponin T NT-Pro-B Natriuret Pep Total Protein Albumin Triglycerides TSH Arterial Blood Glucose 145 H Arterial Blood Ionized Calcium Urine pH Urine WBC (Auto) Urine Creatinine 10/21/20 10/21/20 10/21/20 04:20 06:26 06:30 WBC RBC Hgb Hct RDW Lymph % (Auto) [place] % (Auto) Eos % (Auto) Lymph # (Auto) [place] # (Auto) Eos # (Auto) Seg Neutrophils % Lymphocytes % (Manual) Monocytes % (Manual) Seg Neutrophils # Seg Neutrophils # Man Lymphocytes # (Manual) Monocytes # (Manual) D-Dimer Heparin Anti-Xa Level ABG pH 7.262 L POC ABG pCO2 72.4 H POC ABG pO2 81.6 L ABG pO2 ABG HCO3 ABG O2 Saturation ABG Base Excess ABG Hemoglobin 11.6 L ABG Oxyhemoglobin ABG Sodium ABG Potassium ABG Chloride ABG Glucose 140 H VBG pH Oxyhemoglobin Carboxyhemoglobin Sodium Potassium Chloride Carbon Dioxide 33 H BUN 104 H Creatinine 2.9 H Glucose 153 H POC Glucose 128 H Lactic Acid Calcium Phosphorus Magnesium Total Bilirubin AST ALT Ammonia Lactate Dehydrogenase Total Creatine Kinase CK-MB (CK-2) Troponin T NT-Pro-B Natriuret Pep Total Protein Albumin Triglycerides TSH Arterial Blood Glucose 140 H Arterial Blood Ionized Calcium Urine pH Urine WBC (Auto) Urine Creatinine 10/21/20 10/21/20 10/21/20 06:30 11:24 17:21 WBC 13.3 H RBC Hgb 10.7 L Hct 32.7 L RDW Lymph % (Auto) [place] % (Auto) Eos % (Auto) Lymph # (Auto) [place] # (Auto) Eos # (Auto) Seg Neutrophils % Lymphocytes % (Manual) Monocytes % (Manual) Seg Neutrophils # Seg Neutrophils # Man Lymphocytes # (Manual) Monocytes # (Manual) D-Dimer Heparin Anti-Xa Level ABG pH POC ABG pCO2 POC ABG pO2 ABG pO2 ABG HCO3 ABG O2 Saturation ABG Base Excess ABG Hemoglobin ABG Oxyhemoglobin ABG Sodium ABG Potassium ABG Chloride ABG Glucose VBG pH Oxyhemoglobin Carboxyhemoglobin Sodium Potassium Chloride Carbon Dioxide BUN Creatinine Glucose POC Glucose 178 H 138 H Lactic Acid Calcium Phosphorus Magnesium Total Bilirubin AST ALT Ammonia Lactate Dehydrogenase Total Creatine Kinase CK-MB (CK-2) Troponin T NT-Pro-B Natriuret Pep Total Protein Albumin Triglycerides TSH Arterial Blood Glucose Arterial Blood Ionized Calcium Urine pH Urine WBC (Auto) Urine Creatinine 10/22/20 10/22/20 10/22/20 00:05 04:30 06:15 WBC RBC Hgb Hct RDW Lymph % (Auto) [place] % (Auto) Eos % (Auto) Lymph # (Auto) [place] # (Auto) Eos # (Auto) Seg Neutrophils % Lymphocytes % (Manual) Monocytes % (Manual) Seg Neutrophils # Seg Neutrophils # Man Lymphocytes # (Manual) Monocytes # (Manual) D-Dimer Heparin Anti-Xa Level ABG pH 7.225 L POC ABG pCO2 76.6 H POC ABG pO2 ABG pO2 ABG HCO3 ABG O2 Saturation ABG Base Excess ABG Hemoglobin 11.1 L ABG Oxyhemoglobin ABG Sodium ABG Potassium ABG Chloride ABG Glucose 151 H VBG pH Oxyhemoglobin Carboxyhemoglobin Sodium Potassium Chloride Carbon Dioxide 32 H BUN 103 H Creatinine 2.7 H Glucose 151 H POC Glucose 135 H Lactic Acid Calcium Phosphorus Magnesium Total Bilirubin AST ALT Ammonia Lactate Dehydrogenase Total Creatine Kinase CK-MB (CK-2) Troponin T NT-Pro-B Natriuret Pep Total Protein Albumin Triglycerides TSH Arterial Blood Glucose 151 H Arterial Blood Ionized Calcium Urine pH Urine WBC (Auto) Urine Creatinine 10/22/20 10/22/20 10/22/20 06:18 11:34 11:44 WBC RBC Hgb Hct RDW Lymph % (Auto) [place] % (Auto) Eos % (Auto) Lymph # (Auto) [place] # (Auto) Eos # (Auto) Seg Neutrophils % Lymphocytes % (Manual) Monocytes % (Manual) Seg Neutrophils # Seg Neutrophils # Man Lymphocytes # (Manual) Monocytes # (Manual) D-Dimer Heparin Anti-Xa Level ABG pH 7.278 L POC ABG pCO2 67.8 H POC ABG pO2 ABG pO2 ABG HCO3 ABG O2 Saturation ABG Base Excess ABG Hemoglobin 10.2 L ABG Oxyhemoglobin ABG Sodium ABG Potassium ABG Chloride ABG Glucose 172 H VBG pH Oxyhemoglobin Carboxyhemoglobin Sodium Potassium Chloride Carbon Dioxide BUN Creatinine Glucose POC Glucose 137 H 147 H Lactic Acid Calcium Phosphorus Magnesium Total Bilirubin AST ALT Ammonia Lactate Dehydrogenase Total Creatine Kinase CK-MB (CK-2) Troponin T NT-Pro-B Natriuret Pep Total Protein Albumin Triglycerides TSH Arterial Blood Glucose 172 H Arterial Blood Ionized Calcium Urine pH Urine WBC (Auto) Urine Creatinine 10/22/20 10/22/20 10/23/20 17:40 23:55 05:11 WBC RBC Hgb Hct RDW Lymph % (Auto) [place] % (Auto) Eos % (Auto) Lymph # (Auto) [place] # (Auto) Eos # (Auto) Seg Neutrophils % Lymphocytes % (Manual) Monocytes % (Manual) Seg Neutrophils # Seg Neutrophils # Man Lymphocytes # (Manual) Monocytes # (Manual) D-Dimer Heparin Anti-Xa Level ABG pH POC ABG pCO2 63.6 H POC ABG pO2 81.2 L ABG pO2 ABG HCO3 ABG O2 Saturation ABG Base Excess ABG Hemoglobin 10.6 L ABG Oxyhemoglobin ABG Sodium ABG Potassium ABG Chloride 109.0 H ABG Glucose 149 H VBG pH Oxyhemoglobin Carboxyhemoglobin Sodium Potassium Chloride Carbon Dioxide BUN Creatinine Glucose POC Glucose 141 H 139 H Lactic Acid Calcium Phosphorus Magnesium Total Bilirubin AST ALT Ammonia Lactate Dehydrogenase Total Creatine Kinase CK-MB (CK-2) Troponin T NT-Pro-B Natriuret Pep Total Protein Albumin Triglycerides TSH Arterial Blood Glucose 149 H Arterial Blood Ionized Calcium Urine pH Urine WBC (Auto) Urine Creatinine 10/23/20 10/23/20 10/23/20 05:39 06:00 11:32 WBC RBC Hgb Hct RDW Lymph % (Auto) [place] % (Auto) Eos % (Auto) Lymph # (Auto) [place] # (Auto) Eos # (Auto) Seg Neutrophils % Lymphocytes % (Manual) Monocytes % (Manual) Seg Neutrophils # Seg Neutrophils # Man Lymphocytes # (Manual) Monocytes # (Manual) D-Dimer Heparin Anti-Xa Level ABG pH POC ABG pCO2 POC ABG pO2 ABG pO2 ABG HCO3 ABG O2 Saturation ABG Base Excess ABG Hemoglobin ABG Oxyhemoglobin ABG Sodium ABG Potassium ABG Chloride ABG Glucose VBG pH Oxyhemoglobin Carboxyhemoglobin Sodium 146 H Potassium Chloride Carbon Dioxide 35 H BUN 92 H Creatinine 2.0 H Glucose 144 H POC Glucose 139 H 176 H Lactic Acid Calcium Phosphorus Magnesium Total Bilirubin AST ALT Ammonia Lactate Dehydrogenase Total Creatine Kinase CK-MB (CK-2) Troponin T NT-Pro-B Natriuret Pep Total Protein Albumin Triglycerides TSH Arterial Blood Glucose Arterial Blood Ionized Calcium Urine pH Urine WBC (Auto) Urine Creatinine 10/23/20 10/23/20 10/24/20 11:34 17:55 05:33 WBC RBC Hgb Hct RDW Lymph % (Auto) [place] % (Auto) Eos % (Auto) Lymph # (Auto) [place] # (Auto) Eos # (Auto) Seg Neutrophils % Lymphocytes % (Manual) Monocytes % (Manual) Seg Neutrophils # Seg Neutrophils # Man Lymphocytes # (Manual) Monocytes # (Manual) D-Dimer Heparin Anti-Xa Level ABG pH POC ABG pCO2 POC ABG pO2 ABG pO2 ABG HCO3 ABG O2 Saturation ABG Base Excess ABG Hemoglobin ABG Oxyhemoglobin ABG Sodium ABG Potassium ABG Chloride ABG Glucose VBG pH Oxyhemoglobin Carboxyhemoglobin Sodium 147 H Potassium Chloride Carbon Dioxide 32 H BUN 76 H Creatinine 1.7 H Glucose 172 H POC Glucose 173 H 135 H Lactic Acid Calcium Phosphorus Magnesium Total Bilirubin AST ALT Ammonia Lactate Dehydrogenase Total Creatine Kinase CK-MB (CK-2) Troponin T NT-Pro-B Natriuret Pep Total Protein Albumin Triglycerides TSH Arterial Blood Glucose Arterial Blood Ionized Calcium Urine pH Urine WBC (Auto) Urine Creatinine 10/24/20 10/24/20 10/24/20 05:41 12:09 18:09 WBC RBC Hgb Hct RDW Lymph % (Auto) [place] % (Auto) Eos % (Auto) Lymph # (Auto) [place] # (Auto) Eos # (Auto) Seg Neutrophils % Lymphocytes % (Manual) Monocytes % (Manual) Seg Neutrophils # Seg Neutrophils # Man Lymphocytes # (Manual) Monocytes # (Manual) D-Dimer Heparin Anti-Xa Level ABG pH POC ABG pCO2 POC ABG pO2 ABG pO2 ABG HCO3 ABG O2 Saturation ABG Base Excess ABG Hemoglobin ABG Oxyhemoglobin ABG Sodium ABG Potassium ABG Chloride ABG Glucose VBG pH Oxyhemoglobin Carboxyhemoglobin Sodium Potassium Chloride Carbon Dioxide BUN Creatinine Glucose POC Glucose 156 H 154 H 132 H Lactic Acid Calcium Phosphorus Magnesium Total Bilirubin AST ALT Ammonia Lactate Dehydrogenase Total Creatine Kinase CK-MB (CK-2) Troponin T NT-Pro-B Natriuret Pep Total Protein Albumin Triglycerides TSH Arterial Blood Glucose Arterial Blood Ionized Calcium Urine pH Urine WBC (Auto) Urine Creatinine 10/24/20 10/25/20 10/25/20 23:39 05:29 08:55 WBC RBC Hgb Hct RDW Lymph % (Auto) [place] % (Auto) Eos % (Auto) Lymph # (Auto) [place] # (Auto) Eos # (Auto) Seg Neutrophils % Lymphocytes % (Manual) Monocytes % (Manual) Seg Neutrophils # Seg Neutrophils # Man Lymphocytes # (Manual) Monocytes # (Manual) D-Dimer Heparin Anti-Xa Level ABG pH POC ABG pCO2 POC ABG pO2 ABG pO2 ABG HCO3 ABG O2 Saturation ABG Base Excess ABG Hemoglobin ABG Oxyhemoglobin ABG Sodium ABG Potassium ABG Chloride ABG Glucose VBG pH Oxyhemoglobin Carboxyhemoglobin Sodium 150 H Potassium Chloride 108.3 H Carbon Dioxide 32 H BUN 57 H Creatinine 1.5 H Glucose 142 H POC Glucose 131 H 142 H Lactic Acid Calcium Phosphorus Magnesium Total Bilirubin AST ALT Ammonia Lactate Dehydrogenase Total Creatine Kinase CK-MB (CK-2) Troponin T NT-Pro-B Natriuret Pep Total Protein Albumin Triglycerides TSH Arterial Blood Glucose Arterial Blood Ionized Calcium Urine pH Urine WBC (Auto) Urine Creatinine 10/25/20 10/25/20 10/25/20 08:55 11:08 18:10 WBC 14.3 H RBC 3.57 L Hgb 10.3 L Hct 31.6 L RDW Lymph % (Auto) [place] % (Auto) Eos % (Auto) Lymph # (Auto) [place] # (Auto) Eos # (Auto) Seg Neutrophils % Lymphocytes % (Manual) Monocytes % (Manual) Seg Neutrophils # Seg Neutrophils # Man Lymphocytes # (Manual) Monocytes # (Manual) D-Dimer Heparin Anti-Xa Level ABG pH POC ABG pCO2 52.3 H POC ABG pO2 ABG pO2 ABG HCO3 ABG O2 Saturation ABG Base Excess ABG Hemoglobin 11.2 L ABG Oxyhemoglobin ABG Sodium ABG Potassium ABG Chloride 108.0 H ABG Glucose 167 H VBG pH Oxyhemoglobin Carboxyhemoglobin Sodium Potassium Chloride Carbon Dioxide BUN Creatinine Glucose POC Glucose 157 H Lactic Acid Calcium Phosphorus Magnesium Total Bilirubin AST ALT Ammonia Lactate Dehydrogenase Total Creatine Kinase CK-MB (CK-2) Troponin T NT-Pro-B Natriuret Pep Total Protein Albumin Triglycerides TSH Arterial Blood Glucose 167 H Arterial Blood Ionized Calcium Urine pH Urine WBC (Auto) Urine Creatinine 10/25/20 10/26/20 10/26/20 18:20 00:20 06:08 WBC RBC Hgb Hct RDW Lymph % (Auto) [place] % (Auto) Eos % (Auto) Lymph # (Auto) [place] # (Auto) Eos # (Auto) Seg Neutrophils % Lymphocytes % (Manual) Monocytes % (Manual) Seg Neutrophils # Seg Neutrophils # Man Lymphocytes # (Manual) Monocytes # (Manual) D-Dimer Heparin Anti-Xa Level ABG pH POC ABG pCO2 POC ABG pO2 ABG pO2 ABG HCO3 ABG O2 Saturation ABG Base Excess ABG Hemoglobin ABG Oxyhemoglobin ABG Sodium ABG Potassium ABG Chloride ABG Glucose VBG pH Oxyhemoglobin Carboxyhemoglobin Sodium Potassium Chloride Carbon Dioxide BUN Creatinine Glucose POC Glucose 127 H 108 H 119 H Lactic Acid Calcium Phosphorus Magnesium Total Bilirubin AST ALT Ammonia Lactate Dehydrogenase Total Creatine Kinase CK-MB (CK-2) Troponin T NT-Pro-B Natriuret Pep Total Protein Albumin Triglycerides TSH Arterial Blood Glucose Arterial Blood Ionized Calcium Urine pH Urine WBC (Auto) Urine Creatinine 10/26/20 10/26/20 10/26/20 07:38 07:38 11:28 WBC 13.5 H RBC 3.37 L Hgb 9.8 L Hct 30.0 L RDW Lymph % (Auto) [place] % (Auto) Eos % (Auto) Lymph # (Auto) [place] # (Auto) Eos # (Auto) Seg Neutrophils % Lymphocytes % (Manual) Monocytes % (Manual) Seg Neutrophils # Seg Neutrophils # Man Lymphocytes # (Manual) Monocytes # (Manual) D-Dimer Heparin Anti-Xa Level ABG pH POC ABG pCO2 POC ABG pO2 ABG pO2 ABG HCO3 ABG O2 Saturation ABG Base Excess ABG Hemoglobin ABG Oxyhemoglobin ABG Sodium ABG Potassium ABG Chloride ABG Glucose VBG pH Oxyhemoglobin Carboxyhemoglobin Sodium 149 H Potassium Chloride 107.6 H Carbon Dioxide 34 H BUN 49 H Creatinine 1.4 H Glucose 137 H POC Glucose 148 H Lactic Acid Calcium Phosphorus Magnesium Total Bilirubin AST ALT Ammonia Lactate Dehydrogenase Total Creatine Kinase CK-MB (CK-2) Troponin T NT-Pro-B Natriuret Pep Total Protein Albumin Triglycerides TSH Arterial Blood Glucose Arterial Blood Ionized Calcium Urine pH Urine WBC (Auto) Urine Creatinine 10/26/20 10/26/20 10/27/20 18:17 23:37 05:08 WBC RBC Hgb Hct RDW Lymph % (Auto) [place] % (Auto) Eos % (Auto) Lymph # (Auto) [place] # (Auto) Eos # (Auto) Seg Neutrophils % Lymphocytes % (Manual) Monocytes % (Manual) Seg Neutrophils # Seg Neutrophils # Man Lymphocytes # (Manual) Monocytes # (Manual) D-Dimer Heparin Anti-Xa Level ABG pH POC ABG pCO2 POC ABG pO2 ABG pO2 ABG HCO3 ABG O2 Saturation ABG Base Excess ABG Hemoglobin ABG Oxyhemoglobin ABG Sodium ABG Potassium ABG Chloride ABG Glucose VBG pH Oxyhemoglobin Carboxyhemoglobin Sodium Potassium Chloride Carbon Dioxide BUN Creatinine Glucose POC Glucose 121 H 152 H 120 H Lactic Acid Calcium Phosphorus Magnesium Total Bilirubin AST ALT Ammonia Lactate Dehydrogenase Total Creatine Kinase CK-MB (CK-2) Troponin T NT-Pro-B Natriuret Pep Total Protein Albumin Triglycerides TSH Arterial Blood Glucose Arterial Blood Ionized Calcium Urine pH Urine WBC (Auto) Urine Creatinine 10/27/20 10/27/20 10/27/20 07:30 07:30 11:59 WBC RBC 3.46 L Hgb 10.2 L Hct 30.9 L RDW Lymph % (Auto) [place] % (Auto) Eos % (Auto) Lymph # (Auto) [place] # (Auto) Eos # (Auto) Seg Neutrophils % Lymphocytes % (Manual) Monocytes % (Manual) Seg Neutrophils # Seg Neutrophils # Man Lymphocytes # (Manual) Monocytes # (Manual) D-Dimer Heparin Anti-Xa Level ABG pH POC ABG pCO2 POC ABG pO2 ABG pO2 ABG HCO3 ABG O2 Saturation ABG Base Excess ABG Hemoglobin ABG Oxyhemoglobin ABG Sodium ABG Potassium ABG Chloride ABG Glucose VBG pH Oxyhemoglobin Carboxyhemoglobin Sodium 146 H Potassium Chloride Carbon Dioxide 34 H BUN 45 H Creatinine Glucose 131 H POC Glucose 143 H Lactic Acid Calcium Phosphorus Magnesium Total Bilirubin AST ALT Ammonia Lactate Dehydrogenase Total Creatine Kinase CK-MB (CK-2) Troponin T NT-Pro-B Natriuret Pep Total Protein Albumin Triglycerides TSH Arterial Blood Glucose Arterial Blood Ionized Calcium Urine pH Urine WBC (Auto) Urine Creatinine 10/27/20 10/27/20 10/28/20 18:52 23:03 07:00 WBC RBC Hgb Hct RDW Lymph % (Auto) [place] % (Auto) Eos % (Auto) Lymph # (Auto) [place] # (Auto) Eos # (Auto) Seg Neutrophils % Lymphocytes % (Manual) Monocytes % (Manual) Seg Neutrophils # Seg Neutrophils # Man Lymphocytes # (Manual) Monocytes # (Manual) D-Dimer Heparin Anti-Xa Level ABG pH POC ABG pCO2 POC ABG pO2 ABG pO2 ABG HCO3 ABG O2 Saturation ABG Base Excess ABG Hemoglobin ABG Oxyhemoglobin ABG Sodium ABG Potassium ABG Chloride ABG Glucose VBG pH Oxyhemoglobin Carboxyhemoglobin Sodium 147 H Potassium Chloride Carbon Dioxide 35 H BUN 39 H Creatinine Glucose 133 H POC Glucose 119 H 158 H Lactic Acid Calcium Phosphorus Magnesium Total Bilirubin AST ALT Ammonia Lactate Dehydrogenase Total Creatine Kinase CK-MB (CK-2) Troponin T NT-Pro-B Natriuret Pep Total Protein Albumin Triglycerides TSH Arterial Blood Glucose Arterial Blood Ionized Calcium Urine pH Urine WBC (Auto) Urine Creatinine 10/28/20 10/28/20 10/28/20 09:00 11:47 17:15 WBC 12.5 H RBC 3.58 L Hgb 10.5 L Hct 32.1 L RDW Lymph % (Auto) [place] % (Auto) Eos % (Auto) Lymph # (Auto) [place] # (Auto) Eos # (Auto) Seg Neutrophils % Lymphocytes % (Manual) Monocytes % (Manual) Seg Neutrophils # Seg Neutrophils # Man Lymphocytes # (Manual) Monocytes # (Manual) D-Dimer Heparin Anti-Xa Level ABG pH POC ABG pCO2 POC ABG pO2 ABG pO2 ABG HCO3 ABG O2 Saturation ABG Base Excess ABG Hemoglobin ABG Oxyhemoglobin ABG Sodium ABG Potassium ABG Chloride ABG Glucose VBG pH Oxyhemoglobin Carboxyhemoglobin Sodium Potassium Chloride Carbon Dioxide BUN Creatinine Glucose POC Glucose 129 H 109 H Lactic Acid Calcium Phosphorus Magnesium Total Bilirubin AST ALT Ammonia Lactate Dehydrogenase Total Creatine Kinase CK-MB (CK-2) Troponin T NT-Pro-B Natriuret Pep Total Protein Albumin Triglycerides TSH Arterial Blood Glucose Arterial Blood Ionized Calcium Urine pH Urine WBC (Auto) Urine Creatinine 10/28/20 10/29/20 10/29/20 23:31 04:23 04:23 WBC 13.6 H RBC 3.47 L Hgb 10.5 L Hct 30.7 L RDW 15.4 H Lymph % (Auto) [place] % (Auto) Eos % (Auto) Lymph # (Auto) [place] # (Auto) Eos # (Auto) Seg Neutrophils % Lymphocytes % (Manual) Monocytes % (Manual) Seg Neutrophils # Seg Neutrophils # Man Lymphocytes # (Manual) Monocytes # (Manual) D-Dimer Heparin Anti-Xa Level ABG pH POC ABG pCO2 POC ABG pO2 ABG pO2 ABG HCO3 ABG O2 Saturation ABG Base Excess ABG Hemoglobin ABG Oxyhemoglobin ABG Sodium ABG Potassium ABG Chloride ABG Glucose VBG pH Oxyhemoglobin Carboxyhemoglobin Sodium Potassium Chloride Carbon Dioxide 35 H BUN 34 H Creatinine Glucose 107 H POC Glucose 138 H Lactic Acid Calcium Phosphorus Magnesium Total Bilirubin AST ALT Ammonia Lactate Dehydrogenase Total Creatine Kinase CK-MB (CK-2) Troponin T NT-Pro-B Natriuret Pep Total Protein Albumin Triglycerides TSH Arterial Blood Glucose Arterial Blood Ionized Calcium Urine pH Urine WBC (Auto) Urine Creatinine 10/29/20 10/29/20 10/29/20 05:21 11:49 23:19 WBC RBC Hgb Hct RDW Lymph % (Auto) [place] % (Auto) Eos % (Auto) Lymph # (Auto) [place] # (Auto) Eos # (Auto) Seg Neutrophils % Lymphocytes % (Manual) Monocytes % (Manual) Seg Neutrophils # Seg Neutrophils # Man Lymphocytes # (Manual) Monocytes # (Manual) D-Dimer Heparin Anti-Xa Level ABG pH POC ABG pCO2 POC ABG pO2 ABG pO2 ABG HCO3 ABG O2 Saturation ABG Base Excess ABG Hemoglobin ABG Oxyhemoglobin ABG Sodium ABG Potassium ABG Chloride ABG Glucose VBG pH Oxyhemoglobin Carboxyhemoglobin Sodium Potassium Chloride Carbon Dioxide BUN Creatinine Glucose POC Glucose 115 H 124 H 129 H Lactic Acid Calcium Phosphorus Magnesium Total Bilirubin AST ALT Ammonia Lactate Dehydrogenase Total Creatine Kinase CK-MB (CK-2) Troponin T NT-Pro-B Natriuret Pep Total Protein Albumin Triglycerides TSH Arterial Blood Glucose Arterial Blood Ionized Calcium Urine pH Urine WBC (Auto) Urine Creatinine 10/30/20 10/30/20 10/30/20 04:59 05:10 11:52 WBC RBC Hgb Hct RDW Lymph % (Auto) [place] % (Auto) Eos % (Auto) Lymph # (Auto) [place] # (Auto) Eos # (Auto) Seg Neutrophils % Lymphocytes % (Manual) Monocytes % (Manual) Seg Neutrophils # Seg Neutrophils # Man Lymphocytes # (Manual) Monocytes # (Manual) D-Dimer Heparin Anti-Xa Level ABG pH POC ABG pCO2 POC ABG pO2 ABG pO2 ABG HCO3 ABG O2 Saturation ABG Base Excess ABG Hemoglobin ABG Oxyhemoglobin ABG Sodium ABG Potassium ABG Chloride ABG Glucose VBG pH Oxyhemoglobin Carboxyhemoglobin Sodium Potassium Chloride Carbon Dioxide 34 H BUN 33 H Creatinine Glucose 128 H POC Glucose 126 H 132 H Lactic Acid Calcium Phosphorus Magnesium Total Bilirubin AST ALT Ammonia Lactate Dehydrogenase Total Creatine Kinase CK-MB (CK-2) Troponin T NT-Pro-B Natriuret Pep Total Protein Albumin Triglycerides TSH Arterial Blood Glucose Arterial Blood Ionized Calcium Urine pH Urine WBC (Auto) Urine Creatinine 10/30/20 10/30/20 10/31/20 16:59 23:19 04:00 WBC RBC Hgb Hct RDW Lymph % (Auto) [place] % (Auto) Eos % (Auto) Lymph # (Auto) [place] # (Auto) Eos # (Auto) Seg Neutrophils % Lymphocytes % (Manual) Monocytes % (Manual) Seg Neutrophils # Seg Neutrophils # Man Lymphocytes # (Manual) Monocytes # (Manual) D-Dimer Heparin Anti-Xa Level ABG pH POC ABG pCO2 POC ABG pO2 ABG pO2 ABG HCO3 ABG O2 Saturation ABG Base Excess ABG Hemoglobin ABG Oxyhemoglobin ABG Sodium ABG Potassium ABG Chloride ABG Glucose VBG pH Oxyhemoglobin Carboxyhemoglobin Sodium Potassium Chloride Carbon Dioxide 38 H BUN 32 H Creatinine Glucose 121 H POC Glucose 118 H 138 H Lactic Acid Calcium Phosphorus Magnesium Total Bilirubin AST ALT Ammonia Lactate Dehydrogenase Total Creatine Kinase CK-MB (CK-2) Troponin T NT-Pro-B Natriuret Pep Total Protein Albumin Triglycerides TSH Arterial Blood Glucose Arterial Blood Ionized Calcium Urine pH Urine WBC (Auto) Urine Creatinine 10/31/20 10/31/20 10/31/20 05:13 11:09 16:17 WBC RBC Hgb Hct RDW Lymph % (Auto) [place] % (Auto) Eos % (Auto) Lymph # (Auto) [place] # (Auto) Eos # (Auto) Seg Neutrophils % Lymphocytes % (Manual) Monocytes % (Manual) Seg Neutrophils # Seg Neutrophils # Man Lymphocytes # (Manual) Monocytes # (Manual) D-Dimer Heparin Anti-Xa Level ABG pH POC ABG pCO2 71.1 H POC ABG pO2 67.4 L ABG pO2 ABG HCO3 ABG O2 Saturation ABG Base Excess ABG Hemoglobin 10.9 L ABG Oxyhemoglobin 90.7 L ABG Sodium ABG Potassium ABG Chloride ABG Glucose 134 H VBG pH Oxyhemoglobin Carboxyhemoglobin Sodium Potassium Chloride Carbon Dioxide BUN Creatinine Glucose POC Glucose 110 H 138 H Lactic Acid Calcium Phosphorus Magnesium Total Bilirubin AST ALT Ammonia Lactate Dehydrogenase Total Creatine Kinase CK-MB (CK-2) Troponin T NT-Pro-B Natriuret Pep Total Protein Albumin Triglycerides TSH Arterial Blood Glucose 134 H Arterial Blood Ionized Calcium Urine pH Urine WBC (Auto) Urine Creatinine 10/31/20 10/31/20 11/01/20 18:16 23:56 04:09 WBC 11.3 H RBC 3.05 L Hgb 9.0 L Hct 27.3 L RDW Lymph % (Auto) [place] % (Auto) Eos % (Auto) Lymph # (Auto) [place] # (Auto) Eos # (Auto) Seg Neutrophils % Lymphocytes % (Manual) Monocytes % (Manual) Seg Neutrophils # Seg Neutrophils # Man Lymphocytes # (Manual) Monocytes # (Manual) D-Dimer Heparin Anti-Xa Level ABG pH POC ABG pCO2 POC ABG pO2 ABG pO2 ABG HCO3 ABG O2 Saturation ABG Base Excess ABG Hemoglobin ABG Oxyhemoglobin ABG Sodium ABG Potassium ABG Chloride ABG Glucose VBG pH Oxyhemoglobin Carboxyhemoglobin Sodium Potassium Chloride Carbon Dioxide BUN Creatinine Glucose POC Glucose 135 H 122 H Lactic Acid Calcium Phosphorus Magnesium Total Bilirubin AST ALT Ammonia Lactate Dehydrogenase Total Creatine Kinase CK-MB (CK-2) Troponin T NT-Pro-B Natriuret Pep Total Protein Albumin Triglycerides TSH Arterial Blood Glucose Arterial Blood Ionized Calcium Urine pH Urine WBC (Auto) Urine Creatinine 11/01/20 11/01/20 11/01/20 05:10 11:51 17:17 WBC RBC Hgb Hct RDW Lymph % (Auto) [place] % (Auto) Eos % (Auto) Lymph # (Auto) [place] # (Auto) Eos # (Auto) Seg Neutrophils % Lymphocytes % (Manual) Monocytes % (Manual) Seg Neutrophils # Seg Neutrophils # Man Lymphocytes # (Manual) Monocytes # (Manual) D-Dimer Heparin Anti-Xa Level ABG pH POC ABG pCO2 POC ABG pO2 ABG pO2 ABG HCO3 ABG O2 Saturation ABG Base Excess ABG Hemoglobin ABG Oxyhemoglobin ABG Sodium ABG Potassium ABG Chloride ABG Glucose VBG pH Oxyhemoglobin Carboxyhemoglobin Sodium Potassium Chloride Carbon Dioxide BUN Creatinine Glucose POC Glucose 123 H 123 H 120 H Lactic Acid Calcium Phosphorus Magnesium Total Bilirubin AST ALT Ammonia Lactate Dehydrogenase Total Creatine Kinase CK-MB (CK-2) Troponin T NT-Pro-B Natriuret Pep Total Protein Albumin Triglycerides TSH Arterial Blood Glucose Arterial Blood Ionized Calcium Urine pH Urine WBC (Auto) Urine Creatinine 11/02/20 11/02/20 11/02/20 03:14 05:37 05:37 WBC RBC Hgb 9.8 L Hct 29.5 L RDW Lymph % (Auto) [place] % (Auto) Eos % (Auto) Lymph # (Auto) [place] # (Auto) Eos # (Auto) Seg Neutrophils % Lymphocytes % (Manual) Monocytes % (Manual) Seg Neutrophils # Seg Neutrophils # Man Lymphocytes # (Manual) Monocytes # (Manual) D-Dimer Heparin Anti-Xa Level ABG pH POC ABG pCO2 58.9 H POC ABG pO2 79.9 L ABG pO2 ABG HCO3 ABG O2 Saturation ABG Base Excess ABG Hemoglobin 10.6 L ABG Oxyhemoglobin ABG Sodium ABG Potassium ABG Chloride ABG Glucose 110 H VBG pH Oxyhemoglobin Carboxyhemoglobin Sodium Potassium Chloride Carbon Dioxide 37 H BUN 28 H Creatinine Glucose 106 H POC Glucose Lactic Acid Calcium Phosphorus Magnesium Total Bilirubin AST ALT Ammonia Lactate Dehydrogenase Total Creatine Kinase CK-MB (CK-2) Troponin T NT-Pro-B Natriuret Pep Total Protein Albumin Triglycerides TSH Arterial Blood Glucose 110 H Arterial Blood Ionized Calcium Urine pH Urine WBC (Auto) Urine Creatinine 11/02/20 11/03/20 11/03/20 23:29 04:45 04:45 WBC 11.8 H RBC 3.07 L Hgb 9.0 L Hct 27.2 L RDW Lymph % (Auto) 11.4 L [place] % (Auto) 9.5 H Eos % (Auto) Lymph # (Auto) [place] # (Auto) 1.1 H Eos # (Auto) Seg Neutrophils % 75.9 H Lymphocytes % (Manual) Monocytes % (Manual) Seg Neutrophils # 9.0 H Seg Neutrophils # Man Lymphocytes # (Manual) Monocytes # (Manual) D-Dimer Heparin Anti-Xa Level ABG pH POC ABG pCO2 POC ABG pO2 ABG pO2 ABG HCO3 ABG O2 Saturation ABG Base Excess ABG Hemoglobin ABG Oxyhemoglobin ABG Sodium ABG Potassium ABG Chloride ABG Glucose VBG pH Oxyhemoglobin Carboxyhemoglobin Sodium 146 H Potassium Chloride Carbon Dioxide 39 H BUN 26 H Creatinine Glucose POC Glucose 129 H Lactic Acid Calcium Phosphorus Magnesium Total Bilirubin AST ALT Ammonia Lactate Dehydrogenase Total Creatine Kinase CK-MB (CK-2) Troponin T NT-Pro-B Natriuret Pep Total Protein Albumin Triglycerides TSH Arterial Blood Glucose Arterial Blood Ionized Calcium Urine pH Urine WBC (Auto) Urine Creatinine 11/03/20 11/03/20 11/03/20 05:05 11:51 17:43 WBC RBC Hgb Hct RDW Lymph % (Auto) [place] % (Auto) Eos % (Auto) Lymph # (Auto) [place] # (Auto) Eos # (Auto) Seg Neutrophils % Lymphocytes % (Manual) Monocytes % (Manual) Seg Neutrophils # Seg Neutrophils # Man Lymphocytes # (Manual) Monocytes # (Manual) D-Dimer Heparin Anti-Xa Level ABG pH 7.452 H POC ABG pCO2 55.4 H POC ABG pO2 129.1 H ABG pO2 ABG HCO3 ABG O2 Saturation ABG Base Excess ABG Hemoglobin 9.3 L ABG Oxyhemoglobin ABG Sodium ABG Potassium ABG Chloride ABG Glucose 99 H VBG pH Oxyhemoglobin Carboxyhemoglobin 1.7 H Sodium Potassium Chloride Carbon Dioxide BUN Creatinine Glucose POC Glucose 131 H 125 H Lactic Acid Calcium Phosphorus Magnesium Total Bilirubin AST ALT Ammonia Lactate Dehydrogenase Total Creatine Kinase CK-MB (CK-2) Troponin T NT-Pro-B Natriuret Pep Total Protein Albumin Triglycerides TSH Arterial Blood Glucose 99 H Arterial Blood Ionized Calcium Urine pH Urine WBC (Auto) Urine Creatinine 11/03/20 11/04/20 11/04/20 23:27 04:00 05:10 WBC RBC Hgb Hct RDW Lymph % (Auto) [place] % (Auto) Eos % (Auto) Lymph # (Auto) [place] # (Auto) Eos # (Auto) Seg Neutrophils % Lymphocytes % (Manual) Monocytes % (Manual) Seg Neutrophils # Seg Neutrophils # Man Lymphocytes # (Manual) Monocytes # (Manual) D-Dimer Heparin Anti-Xa Level ABG pH POC ABG pCO2 POC ABG pO2 ABG pO2 ABG HCO3 ABG O2 Saturation ABG Base Excess ABG Hemoglobin ABG Oxyhemoglobin ABG Sodium ABG Potassium ABG Chloride ABG Glucose VBG pH Oxyhemoglobin Carboxyhemoglobin Sodium Potassium Chloride 95.2 L Carbon Dioxide 40 H BUN 26 H Creatinine Glucose 128 H POC Glucose 148 H 126 H Lactic Acid Calcium Phosphorus Magnesium Total Bilirubin AST ALT Ammonia Lactate Dehydrogenase Total Creatine Kinase CK-MB (CK-2) Troponin T NT-Pro-B Natriuret Pep Total Protein Albumin Triglycerides TSH Arterial Blood Glucose Arterial Blood Ionized Calcium Urine pH Urine WBC (Auto) Urine Creatinine 11/04/20 11/04/20 11/04/20 11:39 18:00 21:18 WBC RBC Hgb Hct RDW Lymph % (Auto) [place] % (Auto) Eos % (Auto) Lymph # (Auto) [place] # (Auto) Eos # (Auto) Seg Neutrophils % Lymphocytes % (Manual) Monocytes % (Manual) Seg Neutrophils # Seg Neutrophils # Man Lymphocytes # (Manual) Monocytes # (Manual) D-Dimer Heparin Anti-Xa Level ABG pH 7.511 H POC ABG pCO2 49.0 H POC ABG pO2 ABG pO2 ABG HCO3 ABG O2 Saturation ABG Base Excess ABG Hemoglobin 9.5 L ABG Oxyhemoglobin ABG Sodium 135.7 L ABG Potassium ABG Chloride ABG Glucose 152 H VBG pH Oxyhemoglobin Carboxyhemoglobin Sodium Potassium Chloride Carbon Dioxide BUN Creatinine Glucose POC Glucose 142 H 130 H Lactic Acid Calcium Phosphorus Magnesium Total Bilirubin AST ALT Ammonia Lactate Dehydrogenase Total Creatine Kinase CK-MB (CK-2) Troponin T NT-Pro-B Natriuret Pep Total Protein Albumin Triglycerides TSH Arterial Blood Glucose 152 H Arterial Blood Ionized Calcium 4.3 L Urine pH Urine WBC (Auto) Urine Creatinine 11/04/20 11/05/20 11/05/20 23:19 03:30 03:30 WBC RBC 3.02 L Hgb 9.1 L Hct 26.7 L RDW Lymph % (Auto) [place] % (Auto) Eos % (Auto) Lymph # (Auto) [place] # (Auto) Eos # (Auto) Seg Neutrophils % Lymphocytes % (Manual) Monocytes % (Manual) Seg Neutrophils # Seg Neutrophils # Man Lymphocytes # (Manual) Monocytes # (Manual) D-Dimer Heparin Anti-Xa Level ABG pH POC ABG pCO2 POC ABG pO2 ABG pO2 ABG HCO3 ABG O2 Saturation ABG Base Excess ABG Hemoglobin ABG Oxyhemoglobin ABG Sodium ABG Potassium ABG Chloride ABG Glucose VBG pH Oxyhemoglobin Carboxyhemoglobin Sodium Potassium Chloride 93.6 L Carbon Dioxide 40 H BUN 24 H Creatinine Glucose 121 H POC Glucose 126 H Lactic Acid Calcium Phosphorus Magnesium Total Bilirubin AST ALT Ammonia Lactate Dehydrogenase Total Creatine Kinase CK-MB (CK-2) Troponin T NT-Pro-B Natriuret Pep Total Protein Albumin Triglycerides TSH Arterial Blood Glucose Arterial Blood Ionized Calcium Urine pH Urine WBC (Auto) Urine Creatinine 11/05/20 11/05/20 11/05/20 05:24 11:37 17:37 WBC RBC Hgb Hct RDW Lymph % (Auto) [place] % (Auto) Eos % (Auto) Lymph # (Auto) [place] # (Auto) Eos # (Auto) Seg Neutrophils % Lymphocytes % (Manual) Monocytes % (Manual) Seg Neutrophils # Seg Neutrophils # Man Lymphocytes # (Manual) Monocytes # (Manual) D-Dimer Heparin Anti-Xa Level ABG pH POC ABG pCO2 POC ABG pO2 ABG pO2 ABG HCO3 ABG O2 Saturation ABG Base Excess ABG Hemoglobin ABG Oxyhemoglobin ABG Sodium ABG Potassium ABG Chloride ABG Glucose VBG pH Oxyhemoglobin Carboxyhemoglobin Sodium Potassium Chloride Carbon Dioxide BUN Creatinine Glucose POC Glucose 124 H 125 H 153 H Lactic Acid Calcium Phosphorus Magnesium Total Bilirubin AST ALT Ammonia Lactate Dehydrogenase Total Creatine Kinase CK-MB (CK-2) Troponin T NT-Pro-B Natriuret Pep Total Protein Albumin Triglycerides TSH Arterial Blood Glucose Arterial Blood Ionized Calcium Urine pH Urine WBC (Auto) Urine Creatinine 11/05/20 11/06/20 11/06/20 23:20 05:24 12:17 WBC RBC Hgb Hct RDW Lymph % (Auto) [place] % (Auto) Eos % (Auto) Lymph # (Auto) [place] # (Auto) Eos # (Auto) Seg Neutrophils % Lymphocytes % (Manual) Monocytes % (Manual) Seg Neutrophils # Seg Neutrophils # Man Lymphocytes # (Manual) Monocytes # (Manual) D-Dimer Heparin Anti-Xa Level ABG pH POC ABG pCO2 POC ABG pO2 ABG pO2 ABG HCO3 ABG O2 Saturation ABG Base Excess ABG Hemoglobin ABG Oxyhemoglobin ABG Sodium ABG Potassium ABG Chloride ABG Glucose VBG pH Oxyhemoglobin Carboxyhemoglobin Sodium Potassium Chloride Carbon Dioxide BUN Creatinine Glucose POC Glucose 133 H 143 H 139 H Lactic Acid Calcium Phosphorus Magnesium Total Bilirubin AST ALT Ammonia Lactate Dehydrogenase Total Creatine Kinase CK-MB (CK-2) Troponin T NT-Pro-B Natriuret Pep Total Protein Albumin Triglycerides TSH Arterial Blood Glucose Arterial Blood Ionized Calcium Urine pH Urine WBC (Auto) Urine Creatinine 11/06/20 11/06/20 11/07/20 17:38 23:26 04:50 WBC RBC 3.24 L Hgb 9.6 L Hct 29.0 L RDW Lymph % (Auto) [place] % (Auto) 10.3 H Eos % (Auto) 6.9 H Lymph # (Auto) [place] # (Auto) Eos # (Auto) 0.5 H Seg Neutrophils % Lymphocytes % (Manual) Monocytes % (Manual) Seg Neutrophils # Seg Neutrophils # Man Lymphocytes # (Manual) Monocytes # (Manual) D-Dimer Heparin Anti-Xa Level ABG pH POC ABG pCO2 POC ABG pO2 ABG pO2 ABG HCO3 ABG O2 Saturation ABG Base Excess ABG Hemoglobin ABG Oxyhemoglobin ABG Sodium ABG Potassium ABG Chloride ABG Glucose VBG pH Oxyhemoglobin Carboxyhemoglobin Sodium Potassium Chloride Carbon Dioxide BUN Creatinine Glucose POC Glucose 139 H 117 H Lactic Acid Calcium Phosphorus Magnesium Total Bilirubin AST ALT Ammonia Lactate Dehydrogenase Total Creatine Kinase CK-MB (CK-2) Troponin T NT-Pro-B Natriuret Pep Total Protein Albumin Triglycerides TSH Arterial Blood Glucose Arterial Blood Ionized Calcium Urine pH Urine WBC (Auto) Urine Creatinine 11/07/20 11/07/20 11/07/20 04:50 05:10 12:22 WBC RBC Hgb Hct RDW Lymph % (Auto) [place] % (Auto) Eos % (Auto) Lymph # (Auto) [place] # (Auto) Eos # (Auto) Seg Neutrophils % Lymphocytes % (Manual) Monocytes % (Manual) Seg Neutrophils # Seg Neutrophils # Man Lymphocytes # (Manual) Monocytes # (Manual) D-Dimer Heparin Anti-Xa Level ABG pH POC ABG pCO2 POC ABG pO2 ABG pO2 ABG HCO3 ABG O2 Saturation ABG Base Excess ABG Hemoglobin ABG Oxyhemoglobin ABG Sodium ABG Potassium ABG Chloride ABG Glucose VBG pH Oxyhemoglobin Carboxyhemoglobin Sodium Potassium Chloride 97.2 L Carbon Dioxide 36 H BUN 25 H Creatinine Glucose 130 H POC Glucose 115 H 118 H Lactic Acid Calcium Phosphorus Magnesium Total Bilirubin AST ALT Ammonia Lactate Dehydrogenase Total Creatine Kinase CK-MB (CK-2) Troponin T NT-Pro-B Natriuret Pep Total Protein Albumin Triglycerides TSH Arterial Blood Glucose Arterial Blood Ionized Calcium Urine pH Urine WBC (Auto) Urine Creatinine 11/07/20 11/07/20 11/08/20 17:46 23:53 07:16 WBC RBC Hgb Hct RDW Lymph % (Auto) [place] % (Auto) Eos % (Auto) Lymph # (Auto) [place] # (Auto) Eos # (Auto) Seg Neutrophils % Lymphocytes % (Manual) Monocytes % (Manual) Seg Neutrophils # Seg Neutrophils # Man Lymphocytes # (Manual) Monocytes # (Manual) D-Dimer Heparin Anti-Xa Level ABG pH POC ABG pCO2 POC ABG pO2 ABG pO2 ABG HCO3 ABG O2 Saturation ABG Base Excess ABG Hemoglobin ABG Oxyhemoglobin ABG Sodium ABG Potassium ABG Chloride ABG Glucose VBG pH Oxyhemoglobin Carboxyhemoglobin Sodium Potassium Chloride Carbon Dioxide BUN Creatinine Glucose POC Glucose 150 H 141 H 134 H Lactic Acid Calcium Phosphorus Magnesium Total Bilirubin AST ALT Ammonia Lactate Dehydrogenase Total Creatine Kinase CK-MB (CK-2) Troponin T NT-Pro-B Natriuret Pep Total Protein Albumin Triglycerides TSH Arterial Blood Glucose Arterial Blood Ionized Calcium Urine pH Urine WBC (Auto) Urine Creatinine 11/08/20 11/08/20 11/08/20 11:35 17:59 23:50 WBC RBC Hgb Hct RDW Lymph % (Auto) [place] % (Auto) Eos % (Auto) Lymph # (Auto) [place] # (Auto) Eos # (Auto) Seg Neutrophils % Lymphocytes % (Manual) Monocytes % (Manual) Seg Neutrophils # Seg Neutrophils # Man Lymphocytes # (Manual) Monocytes # (Manual) D-Dimer Heparin Anti-Xa Level ABG pH POC ABG pCO2 POC ABG pO2 ABG pO2 ABG HCO3 ABG O2 Saturation ABG Base Excess ABG Hemoglobin ABG Oxyhemoglobin ABG Sodium ABG Potassium ABG Chloride ABG Glucose VBG pH Oxyhemoglobin Carboxyhemoglobin Sodium Potassium Chloride Carbon Dioxide BUN Creatinine Glucose POC Glucose 148 H 118 H 131 H Lactic Acid Calcium Phosphorus Magnesium Total Bilirubin AST ALT Ammonia Lactate Dehydrogenase Total Creatine Kinase CK-MB (CK-2) Troponin T NT-Pro-B Natriuret Pep Total Protein Albumin Triglycerides TSH Arterial Blood Glucose Arterial Blood Ionized Calcium Urine pH Urine WBC (Auto) Urine Creatinine 11/09/20 11/09/20 11/09/20 12:07 17:00 23:45 WBC RBC Hgb Hct RDW Lymph % (Auto) [place] % (Auto) Eos % (Auto) Lymph # (Auto) [place] # (Auto) Eos # (Auto) Seg Neutrophils % Lymphocytes % (Manual) Monocytes % (Manual) Seg Neutrophils # Seg Neutrophils # Man Lymphocytes # (Manual) Monocytes # (Manual) D-Dimer Heparin Anti-Xa Level ABG pH POC ABG pCO2 POC ABG pO2 ABG pO2 ABG HCO3 ABG O2 Saturation ABG Base Excess ABG Hemoglobin ABG Oxyhemoglobin ABG Sodium ABG Potassium ABG Chloride ABG Glucose VBG pH Oxyhemoglobin Carboxyhemoglobin Sodium Potassium Chloride Carbon Dioxide BUN Creatinine Glucose POC Glucose 133 H 126 H 129 H Lactic Acid Calcium Phosphorus Magnesium Total Bilirubin AST ALT Ammonia Lactate Dehydrogenase Total Creatine Kinase CK-MB (CK-2) Troponin T NT-Pro-B Natriuret Pep Total Protein Albumin Triglycerides TSH Arterial Blood Glucose Arterial Blood Ionized Calcium Urine pH Urine WBC (Auto) Urine Creatinine 11/10/20 11/10/20 11/10/20 05:43 11:47 17:56 WBC RBC Hgb Hct RDW Lymph % (Auto) [place] % (Auto) Eos % (Auto) Lymph # (Auto) [place] # (Auto) Eos # (Auto) Seg Neutrophils % Lymphocytes % (Manual) Monocytes % (Manual) Seg Neutrophils # Seg Neutrophils # Man Lymphocytes # (Manual) Monocytes # (Manual) D-Dimer Heparin Anti-Xa Level ABG pH POC ABG pCO2 POC ABG pO2 ABG pO2 ABG HCO3 ABG O2 Saturation ABG Base Excess ABG Hemoglobin ABG Oxyhemoglobin ABG Sodium ABG Potassium ABG Chloride ABG Glucose VBG pH Oxyhemoglobin Carboxyhemoglobin Sodium Potassium Chloride Carbon Dioxide BUN Creatinine Glucose POC Glucose 111 H 136 H 110 H Lactic Acid Calcium Phosphorus Magnesium Total Bilirubin AST ALT Ammonia Lactate Dehydrogenase Total Creatine Kinase CK-MB (CK-2) Troponin T NT-Pro-B Natriuret Pep Total Protein Albumin Triglycerides TSH Arterial Blood Glucose Arterial Blood Ionized Calcium Urine pH Urine WBC (Auto) Urine Creatinine 11/10/20 11/11/20 11/11/20 23:34 03:11 05:22 WBC RBC Hgb Hct RDW Lymph % (Auto) [place] % (Auto) Eos % (Auto) Lymph # (Auto) [place] # (Auto) Eos # (Auto) Seg Neutrophils % Lymphocytes % (Manual) Monocytes % (Manual) Seg Neutrophils # Seg Neutrophils # Man Lymphocytes # (Manual) Monocytes # (Manual) D-Dimer Heparin Anti-Xa Level ABG pH POC ABG pCO2 64.5 H POC ABG pO2 ABG pO2 ABG HCO3 ABG O2 Saturation ABG Base Excess ABG Hemoglobin 9.7 L ABG Oxyhemoglobin ABG Sodium ABG Potassium 5.0 H ABG Chloride ABG Glucose 148 H VBG pH Oxyhemoglobin Carboxyhemoglobin Sodium Potassium Chloride Carbon Dioxide BUN Creatinine Glucose POC Glucose 134 H 132 H Lactic Acid Calcium Phosphorus Magnesium Total Bilirubin AST ALT Ammonia Lactate Dehydrogenase Total Creatine Kinase CK-MB (CK-2) Troponin T NT-Pro-B Natriuret Pep Total Protein Albumin Triglycerides TSH Arterial Blood Glucose 148 H Arterial Blood Ionized Calcium Urine pH Urine WBC (Auto) Urine Creatinine 11/11/20 11/11/20 11/11/20 08:38 11:00 12:01 WBC RBC 2.79 L Hgb 8.4 L Hct 25.4 L RDW Lymph % (Auto) [place] % (Auto) Eos % (Auto) Lymph # (Auto) [place] # (Auto) Eos # (Auto) Seg Neutrophils % Lymphocytes % (Manual) Monocytes % (Manual) Seg Neutrophils # Seg Neutrophils # Man Lymphocytes # (Manual) Monocytes # (Manual) D-Dimer Heparin Anti-Xa Level ABG pH POC ABG pCO2 POC ABG pO2 ABG pO2 ABG HCO3 ABG O2 Saturation ABG Base Excess ABG Hemoglobin ABG Oxyhemoglobin ABG Sodium ABG Potassium ABG Chloride ABG Glucose VBG pH Oxyhemoglobin Carboxyhemoglobin Sodium 136 L Potassium Chloride 97.6 L Carbon Dioxide 35 H BUN 26 H Creatinine Glucose 133 H POC Glucose 142 H Lactic Acid Calcium 8.0 L Phosphorus Magnesium Total Bilirubin AST ALT Ammonia Lactate Dehydrogenase Total Creatine Kinase CK-MB (CK-2) Troponin T NT-Pro-B Natriuret Pep Total Protein Albumin Triglycerides TSH Arterial Blood Glucose Arterial Blood Ionized Calcium Urine pH Urine WBC (Auto) Urine Creatinine 11/11/20 11/12/20 11/12/20 23:12 05:31 07:41 WBC RBC Hgb Hct RDW Lymph % (Auto) [place] % (Auto) Eos % (Auto) Lymph # (Auto) [place] # (Auto) Eos # (Auto) Seg Neutrophils % Lymphocytes % (Manual) Monocytes % (Manual) Seg Neutrophils # Seg Neutrophils # Man Lymphocytes # (Manual) Monocytes # (Manual) D-Dimer Heparin Anti-Xa Level ABG pH POC ABG pCO2 POC ABG pO2 ABG pO2 ABG HCO3 ABG O2 Saturation ABG Base Excess ABG Hemoglobin ABG Oxyhemoglobin ABG Sodium ABG Potassium ABG Chloride ABG Glucose VBG pH Oxyhemoglobin Carboxyhemoglobin Sodium Potassium Chloride Carbon Dioxide BUN Creatinine Glucose POC Glucose 127 H 117 H 137 H Lactic Acid Calcium Phosphorus Magnesium Total Bilirubin AST ALT Ammonia Lactate Dehydrogenase Total Creatine Kinase CK-MB (CK-2) Troponin T NT-Pro-B Natriuret Pep Total Protein Albumin Triglycerides TSH Arterial Blood Glucose Arterial Blood Ionized Calcium Urine pH Urine WBC (Auto) Urine Creatinine 11/12/20 11/12/20 11/12/20 11:26 15:29 21:30 WBC RBC Hgb Hct RDW Lymph % (Auto) [place] % (Auto) Eos % (Auto) Lymph # (Auto) [place] # (Auto) Eos # (Auto) Seg Neutrophils % Lymphocytes % (Manual) Monocytes % (Manual) Seg Neutrophils # Seg Neutrophils # Man Lymphocytes # (Manual) Monocytes # (Manual) D-Dimer Heparin Anti-Xa Level ABG pH POC ABG pCO2 POC ABG pO2 ABG pO2 ABG HCO3 ABG O2 Saturation ABG Base Excess ABG Hemoglobin ABG Oxyhemoglobin ABG Sodium ABG Potassium ABG Chloride ABG Glucose VBG pH Oxyhemoglobin Carboxyhemoglobin Sodium Potassium Chloride Carbon Dioxide BUN Creatinine Glucose POC Glucose 130 H 146 H 123 H Lactic Acid Calcium Phosphorus Magnesium Total Bilirubin AST ALT Ammonia Lactate Dehydrogenase Total Creatine Kinase CK-MB (CK-2) Troponin T NT-Pro-B Natriuret Pep Total Protein Albumin Triglycerides TSH Arterial Blood Glucose Arterial Blood Ionized Calcium Urine pH Urine WBC (Auto) Urine Creatinine 11/13/20 11/13/20 11/13/20 05:52 07:37 15:34 WBC RBC Hgb Hct RDW Lymph % (Auto) [place] % (Auto) Eos % (Auto) Lymph # (Auto) [place] # (Auto) Eos # (Auto) Seg Neutrophils % Lymphocytes % (Manual) Monocytes % (Manual) Seg Neutrophils # Seg Neutrophils # Man Lymphocytes # (Manual) Monocytes # (Manual) D-Dimer Heparin Anti-Xa Level ABG pH POC ABG pCO2 POC ABG pO2 ABG pO2 ABG HCO3 ABG O2 Saturation ABG Base Excess ABG Hemoglobin ABG Oxyhemoglobin ABG Sodium ABG Potassium ABG Chloride ABG Glucose VBG pH Oxyhemoglobin Carboxyhemoglobin Sodium Potassium Chloride Carbon Dioxide BUN Creatinine Glucose POC Glucose 142 H 109 H 127 H Lactic Acid Calcium Phosphorus Magnesium Total Bilirubin AST ALT Ammonia Lactate Dehydrogenase Total Creatine Kinase CK-MB (CK-2) Troponin T NT-Pro-B Natriuret Pep Total Protein Albumin Triglycerides TSH Arterial Blood Glucose Arterial Blood Ionized Calcium Urine pH Urine WBC (Auto) Urine Creatinine 11/13/20 11/13/20 11/13/20 16:43 16:52 21:18 WBC RBC Hgb Hct RDW Lymph % (Auto) [place] % (Auto) Eos % (Auto) Lymph # (Auto) [place] # (Auto) Eos # (Auto) Seg Neutrophils % Lymphocytes % (Manual) Monocytes % (Manual) Seg Neutrophils # Seg Neutrophils # Man Lymphocytes # (Manual) Monocytes # (Manual) D-Dimer Heparin Anti-Xa Level ABG pH POC ABG pCO2 68.4 H POC ABG pO2 ABG pO2 ABG HCO3 ABG O2 Saturation ABG Base Excess ABG Hemoglobin 10.0 L ABG Oxyhemoglobin ABG Sodium ABG Potassium ABG Chloride ABG Glucose 133 H VBG pH Oxyhemoglobin Carboxyhemoglobin Sodium Potassium Chloride Carbon Dioxide BUN Creatinine Glucose POC Glucose 111 H 108 H Lactic Acid Calcium Phosphorus Magnesium Total Bilirubin AST ALT Ammonia Lactate Dehydrogenase Total Creatine Kinase CK-MB (CK-2) Troponin T NT-Pro-B Natriuret Pep Total Protein Albumin Triglycerides TSH Arterial Blood Glucose 133 H Arterial Blood Ionized Calcium Urine pH Urine WBC (Auto) Urine Creatinine 11/14/20 11/14/20 11/14/20 12:07 18:16 23:21 WBC RBC Hgb Hct RDW Lymph % (Auto) [place] % (Auto) Eos % (Auto) Lymph # (Auto) [place] # (Auto) Eos # (Auto) Seg Neutrophils % Lymphocytes % (Manual) Monocytes % (Manual) Seg Neutrophils # Seg Neutrophils # Man Lymphocytes # (Manual) Monocytes # (Manual) D-Dimer Heparin Anti-Xa Level ABG pH POC ABG pCO2 POC ABG pO2 ABG pO2 ABG HCO3 ABG O2 Saturation ABG Base Excess ABG Hemoglobin ABG Oxyhemoglobin ABG Sodium ABG Potassium ABG Chloride ABG Glucose VBG pH Oxyhemoglobin Carboxyhemoglobin Sodium Potassium Chloride Carbon Dioxide BUN Creatinine Glucose POC Glucose 107 H 109 H 114 H Lactic Acid Calcium Phosphorus Magnesium Total Bilirubin AST ALT Ammonia Lactate Dehydrogenase Total Creatine Kinase CK-MB (CK-2) Troponin T NT-Pro-B Natriuret Pep Total Protein Albumin Triglycerides TSH Arterial Blood Glucose Arterial Blood Ionized Calcium Urine pH Urine WBC (Auto) Urine Creatinine 11/15/20 11/15/20 11/15/20 11:14 16:11 23:57 WBC RBC Hgb Hct RDW Lymph % (Auto) [place] % (Auto) Eos % (Auto) Lymph # (Auto) [place] # (Auto) Eos # (Auto) Seg Neutrophils % Lymphocytes % (Manual) Monocytes % (Manual) Seg Neutrophils # Seg Neutrophils # Man Lymphocytes # (Manual) Monocytes # (Manual) D-Dimer Heparin Anti-Xa Level ABG pH POC ABG pCO2 POC ABG pO2 ABG pO2 ABG HCO3 ABG O2 Saturation ABG Base Excess ABG Hemoglobin ABG Oxyhemoglobin ABG Sodium ABG Potassium ABG Chloride ABG Glucose VBG pH Oxyhemoglobin Carboxyhemoglobin Sodium Potassium Chloride Carbon Dioxide BUN Creatinine Glucose POC Glucose 126 H 135 H 128 H Lactic Acid Calcium Phosphorus Magnesium Total Bilirubin AST ALT Ammonia Lactate Dehydrogenase Total Creatine Kinase CK-MB (CK-2) Troponin T NT-Pro-B Natriuret Pep Total Protein Albumin Triglycerides TSH Arterial Blood Glucose Arterial Blood Ionized Calcium Urine pH Urine WBC (Auto) Urine Creatinine 11/16/20 11/16/20 11/16/20 12:16 17:15 23:34 WBC RBC Hgb Hct RDW Lymph % (Auto) [place] % (Auto) Eos % (Auto) Lymph # (Auto) [place] # (Auto) Eos # (Auto) Seg Neutrophils % Lymphocytes % (Manual) Monocytes % (Manual) Seg Neutrophils # Seg Neutrophils # Man Lymphocytes # (Manual) Monocytes # (Manual) D-Dimer Heparin Anti-Xa Level ABG pH POC ABG pCO2 POC ABG pO2 ABG pO2 ABG HCO3 ABG O2 Saturation ABG Base Excess ABG Hemoglobin ABG Oxyhemoglobin ABG Sodium ABG Potassium ABG Chloride ABG Glucose VBG pH Oxyhemoglobin Carboxyhemoglobin Sodium Potassium Chloride Carbon Dioxide BUN Creatinine Glucose POC Glucose 138 H 128 H 146 H Lactic Acid Calcium Phosphorus Magnesium Total Bilirubin AST ALT Ammonia Lactate Dehydrogenase Total Creatine Kinase CK-MB (CK-2) Troponin T NT-Pro-B Natriuret Pep Total Protein Albumin Triglycerides TSH Arterial Blood Glucose Arterial Blood Ionized Calcium Urine pH Urine WBC (Auto) Urine Creatinine 11/17/20 11/17/20 11/17/20 03:48 03:48 05:43 WBC RBC 3.07 L Hgb 9.2 L Hct 28.0 L RDW 15.7 H Lymph % (Auto) [place] % (Auto) 12.4 H Eos % (Auto) 6.9 H Lymph # (Auto) 0.9 L [place] # (Auto) Eos # (Auto) 0.5 H Seg Neutrophils % Lymphocytes % (Manual) Monocytes % (Manual) Seg Neutrophils # Seg Neutrophils # Man Lymphocytes # (Manual) Monocytes # (Manual) D-Dimer Heparin Anti-Xa Level ABG pH POC ABG pCO2 POC ABG pO2 ABG pO2 ABG HCO3 ABG O2 Saturation ABG Base Excess ABG Hemoglobin ABG Oxyhemoglobin ABG Sodium ABG Potassium ABG Chloride ABG Glucose VBG pH Oxyhemoglobin Carboxyhemoglobin Sodium Potassium Chloride Carbon Dioxide 36 H BUN 24 H Creatinine Glucose 126 H POC Glucose 121 H Lactic Acid Calcium Phosphorus Magnesium Total Bilirubin AST ALT Ammonia Lactate Dehydrogenase Total Creatine Kinase CK-MB (CK-2) Troponin T NT-Pro-B Natriuret Pep Total Protein Albumin 2.9 L Triglycerides TSH Arterial Blood Glucose Arterial Blood Ionized Calcium Urine pH Urine WBC (Auto) Urine Creatinine 11/17/20 11/17/20 11/17/20 12:24 17:45 23:46 WBC RBC Hgb Hct RDW Lymph % (Auto) [place] % (Auto) Eos % (Auto) Lymph # (Auto) [place] # (Auto) Eos # (Auto) Seg Neutrophils % Lymphocytes % (Manual) Monocytes % (Manual) Seg Neutrophils # Seg Neutrophils # Man Lymphocytes # (Manual) Monocytes # (Manual) D-Dimer Heparin Anti-Xa Level ABG pH POC ABG pCO2 POC ABG pO2 ABG pO2 ABG HCO3 ABG O2 Saturation ABG Base Excess ABG Hemoglobin ABG Oxyhemoglobin ABG Sodium ABG Potassium ABG Chloride ABG Glucose VBG pH Oxyhemoglobin Carboxyhemoglobin Sodium Potassium Chloride Carbon Dioxide BUN Creatinine Glucose POC Glucose 144 H 117 H 118 H Lactic Acid Calcium Phosphorus Magnesium Total Bilirubin AST ALT Ammonia Lactate Dehydrogenase Total Creatine Kinase CK-MB (CK-2) Troponin T NT-Pro-B Natriuret Pep Total Protein Albumin Triglycerides TSH Arterial Blood Glucose Arterial Blood Ionized Calcium Urine pH Urine WBC (Auto) Urine Creatinine 11/18/20 11/18/20 11/18/20 05:20 05:20 05:34 WBC RBC 3.17 L Hgb 9.2 L Hct 28.8 L RDW 15.4 H Lymph % (Auto) 9.7 L [place] % (Auto) 11.3 H Eos % (Auto) 5.3 H Lymph # (Auto) 0.7 L [place] # (Auto) 0.9 H Eos # (Auto) Seg Neutrophils % 73.3 H Lymphocytes % (Manual) Monocytes % (Manual) Seg Neutrophils # Seg Neutrophils # Man Lymphocytes # (Manual) Monocytes # (Manual) D-Dimer Heparin Anti-Xa Level ABG pH POC ABG pCO2 POC ABG pO2 ABG pO2 ABG HCO3 ABG O2 Saturation ABG Base Excess ABG Hemoglobin ABG Oxyhemoglobin ABG Sodium ABG Potassium ABG Chloride ABG Glucose VBG pH Oxyhemoglobin Carboxyhemoglobin Sodium Potassium Chloride Carbon Dioxide 39 H BUN 22 H Creatinine Glucose 134 H POC Glucose 139 H Lactic Acid Calcium Phosphorus Magnesium Total Bilirubin AST ALT Ammonia Lactate Dehydrogenase Total Creatine Kinase CK-MB (CK-2) Troponin T NT-Pro-B Natriuret Pep Total Protein Albumin 3.0 L Triglycerides TSH Arterial Blood Glucose Arterial Blood Ionized Calcium Urine pH Urine WBC (Auto) Urine Creatinine Allied health notes reviewed: nursing
--- NOTE | 2020-11-18 10:23 | Progress Note ---
Subjective Date of service: 11/18/20 Principal diagnosis: Cardiac arrest; Septic Shock; Ac. hypoxemic & hypercapnic resp failure; MOE Interval history: This is a 55-year-old male with hypertension, asthma, obesity who was admitted on 10/10 after cardiac arrest x2 (supposedly after COVID-19 vaccine injection), sepsis, right-sided pneumonia, NSTEMI type II, acute heart failure, acute hypoxic respiratory failure, acute kidney injury and anoxic brain injury. Sepsis s/p multiple Cardiac Arrests Continue tube feedings Continue present medications s/p right-sided pneumonia MRSA in tracheal aspirate Repeat tracheal aspirate from 11/16 is positive for MRSA Rule out active infection versus colonization Completed linezolid Discussed with Dr. Marquez He will reevaluate the patient today NSTEMI type II Continue present medications Acute heart failure Afib/Aflutter Rate controlled Continue management per cardiology recommendations Acute hypoxic respiratory failure Status post tracheostomy On trach collar Acute kidney injury (improved) HTN Poorly controlled Discontinue clonidine transdermal patch and start on clonidine tablet via PEG tube Obesity Seizure disorder Continue Keppra -Infectious disease, CCM, GI, nephrology, cardiology, surgery consulted, appreciate recommendations -s/p Antibiotic therapy -10/18 recultured (blood/sputum/nasal discharge and urinalysis), tracheal aspirate with MRSA -S/p Linezolid -Continue antihypertensive regimen -s/p IV amiodarone for A. fib/a flutter now on p.o. beta-shital -Trend CBC, BMP, LFT -trach/peg 10/27 -Mucomyst -Keppra -Avoid nephrotoxic medications, strict intake and output, renal ultrasound shows no obstruction -10/10 echocardiogram shows left internal systolic function normal, moderate concentric left ventricle hypertrophy, mild to side diastolic dysfunction, LVEF 55 to 60% with no pericardial effusion -Bilateral lower extremity Doppler ultrasound negative for DVT/SVT which shows bilateral popliteal cysts -MRI Brain shows restricted diffusion and increased T2 signal cerebral cortex which can be seen in the setting of anoxic brain injury and/ or status epilepticus. -Repeat EEG shows significant generalized slowing compatible with to moderate severe diffuse neuropathy recently compatible with anoxic/ischemic encephalopathy -Will get sputum cultures and chest xray as he has thick secretions and Temp >100F. GI/DVT prophylaxis: SCDs to bilateral lower extremities while in bed, PPI, Heparin subq Dispo: senior care facility versus LTAC History Interval history: This is a 55-year-old male with hypertension, asthma, obesity in the emergency by presented to the emergency department on 10/10 after receiving a Covid vaccine being found unresponsive in his car in the emergency room bay with no pulse and ACLS protocol was initiated from his car to emergency room #21 where it was c ontinued. Patient was intubated after ROSC was achieved and a central line was placed and the patient was initiated on pressors. In the emergency room patient seems to have seizure-like activity and then collapsed and was unresponsive with no palpable pulse and ACLS was again initiated patient with achievement of ROSC. Patient again coded with ACLS protocol in the CT room. Upon arrival to the ICU patient again coded and ROSC was achieved and he was placed on epinephrine, Lasix, heparin and sodium bicarbonate drip and sedated with propofol. An NG tube was placed, A-line was placed. Patient was admitted to the hospitalist service with consult to CCM, nephrology, infectious disease and cardiology. 10/11: Patient COVID-19 PCR is pending and he remains on mechanical ventilation, examination on assist control 400/30/12/0.95. Patient is scheduled for an echocardiogram and we will obtain bilateral lower extremity Doppler ultrasound given elevated D-dimer. Patient was supposed to have a CTA chest when he coded yesterday. We will begin trickle feeding. This morning patient was on a heparin drip and was noted to have bloody drainage from his NG tube. Heparin drip was discontinued. 10/12: Patient remains on propofol and Lasix drip at the time my examination and he is on assist control 400/25/12/0.60. Patient is hypokalemic this morning which was repleted. Nephrology discontinued Lasix drip and Diamox. Patient is hypertensive and has been started on hydralazine and beta-shital IV. He has been titrated off his vasopressors since yesterday. Vancomycin discontinued. Patient is currently on cefepime and azithromycin. 10/13: Sedation vacation attempted today and patient was not responsive to verbal or painful stimuli, does not track or focus or follow commands. This morning the patient has some respiratory alkalosis on ABG, hypernatremia and metabolic alkalosis on BMP. His kidney functions has improved slightly. Patient still has leukocytosis and infectious disease was like to continue antibiotic therapy. GI evaluated the patient yesterday and started the patient on PPI does not plan to scope at this time. At the time my examination patient assist-control 400 /20/12/0.40 and sedated on propofol at 20. 4/2: GI has recommended a CT abdomen since there is increased output from OG tube and an MRI brain without contrast has been ordered per neurology recommend ations. EEG is pending and the patient has been started on Keppra per neurology.. Nutrition has been consulted for initiation of parenteral nutrition. Patient remains sedated with propofol and his hypernatremia, leukocytosis, acute kidney injury and metabolic alkalosis is improving. Patient has hypokalemia today which was repleted. At the time of my examination patient was on assist control 400/14/10/0.40 and CCM has dropped his rate to 12 and PEEP to 8. We have labs ordered for a.m. He was given a clonidine patch given persistent hypertension and he remains on D5 water per nephrology. 10/15: This morning patient was started to have a low-grade fever and he will continue antibiotic therapy per infectious disease. He will remove Tuttle catheter today and place a condom cath. Patient's renal function is worsening with a BUN/creatinine of 57/2.4 today and he has hyperphosphatemia at 5.2. This morning the time my examination patient is sedated on fentanyl and has TPN infusing. He is on assist control 400/12/8/0.35. Per GI we will start trial of tube feedings initiation has been reconsulted for orders. 10/18: Patient was febrile overnight and infectious disease has recultured ( blood/sputum/right nostril culture) and sent in urinalysis. Cefepime was extended due to high fever and was started on vancomycin. Tube feeding is at goal and we will discontinue his parenteral nutrition. Patient is unable to obtain his MRI due to increased hypoxia and nasal secretions. He will be started on CPAP trials today. This time I examination patient was sedated on fentanyl and had PPN running at 42. His renal function tests have worsened and now has hyperchloremia. Hypernatremia has resolved. 10/19: Patient's T-max was 100.2 and he was pancultured yesterday, remains on antibiotic therapy and still has copious drainage from his nostrils. Patient still has leukocytosis however his/creatinine improved slightly to 3.1 from 3.3. Patient's urinalysis from yesterday shows pyuria. Patient's tracheal aspirate from yesterday grew Staph aureus. Patient is on cefepime and vancomycin. 10/20: This morning at the time my examination patient was CPAP trial of 10/6 and his T-max was 100.9. Patient sedated on fentanyl at 2 just received IV push fentanyl for tachycardia. Today his creatinine is 2.8 from 3.1 yesterday. Infectious disease has stopped cefepime and vancomycin and started linezolid and MRSA PCR is pending. Today removed his NG tube and replaced it with OG tube. We will keep the patient normal saline at 75 mL's per hour for 3 L. Patient developed A. fib/a flutter overnight and cardiology has increased his Lopressor and IV amiodarone. We requested neurology evaluation today. 10/21: Cardiology we will increase Lopressor to 3 times daily and discontinue his amiodarone drip. Infectious disease would like a sinus CT when feasible however patient did have a moment of desatting earlier this week when we attempted MRI brain. And again yesterday when we attempted a "trial run" with positioning at bedside Patient is on linezolid for 10 days per ID. 10/22/20; patient was seen and evaluated this morning, patient had low-grade fever overnight. Patient is on Lopressor per cardiology recommendation. Patient did not follow commands, no improvement in mental status. Evaluated by neurology yesterday and neurology once MRI or CAT scan but cannot be done becaus e patient desats when he lies flat. Patient is on linezolid per ID recommendation. Continue NG tube feeding. Continue with Keppra. Patient is on assist control with PEEP of 6. Management plan was discussed with his yesterday. 10/23/2020; patient is on Zyvox for positive MRSA from tracheal aspirate and nasal secretion culture. Patient's mentation did not improve and does not follow commands. He was reevaluated by neurology and recommend MRI once patient is able to tolerate. MRI could not be done, CT scan could not be done because the patient could not lie flat. Clinically patient looks like she has anoxic encephalopathy. Patient is on NG tube feeding and on mechanical ventilation. Patient is on Keppra. Management plan was discussed with his . 4/12: This morning the patient is on AC TV 400,R 16, Peep 6 and FiO2 of 30% and sedated on 1mcg of Fentayl. He is hypernatremic and his kidney function tests have slightly improved. RN will attempt to obtain MRI Brain today since the patient was able to tolerate a "trial run" of being flat. [facility] plans to resume CPAP trials once MRI obtained. 10/25: This morning the time of examination patient was on assist control tidal volume 400, rate 16, PEEP 6, FiO2 30% and he is currently on CPAP. His MRI brain finding is consistent with status epilepticus or anoxic brain injury. Patient is EEG pending. No acute overnight events reported. 10/26: Patient has been on a CPAP trial 14/6 which she has been tolerating. Surgery was consulted for trach/PEG. Patient's hypernatremia and hyperchloremia slightly better as well as his kidney functions. He has received cardiac clearance for his trach and PEG. No acute events reported overnight. 10/27: At the time my examination patient was on CPAP trial 15/6 and 30% FiO2. Patient's electrolyte abnormalities were improving and sources kidney function. His T-max overnight was 99.3 and he remains on linezolid. No acute events reported overnight. 10/28: Yesterday patient had a trach and PEG placed. Patient remains n.p.o. as he has not been cleared by surgery to resume p.o. intake. Today he has slight leukocytosis which is likely reactive, hyponatremia, metabolic alkalosis however his kidney function continues to improve. No acute events overnight. 10/29: Plan to start tube feeding today, patient remains on mechanical ventilation with trach tube. Remains comatose without any change in mental status. Called and updated. 10/30: Vitals stable, patient remains on trach tube with ventilator. Tolerating tube feeding, otherwise clinically unchanged. Continue to provide supportive care and wean off from vent as tolerated. 10/31: No acute events reported overnight. Patient is CPAP at the time my examination however he will be tried on trach collar and we will obtain an ABG within 2 hours. 11/01. Patient is on a trach collar at 35% FiO2, he was reported, patient received Lasix and will obtain an ABG at 2100. dr. Uribe updated his and his mother is at bedside visiting him. 11/02. Patient was rested on assist control due to "tube feedings" endotracheal tube however CXR looks mild atelectasis rather than pneumonia. [facility] has given the patient another dose of Lasix and will obtain a CXR in the a.m. Patient remains with low-grade fever and we will resume daily SBT as tolerated. We will obtain a.m. labs and resume tube feedings. 11/03: Overnight the patient was rested on assist control and this afternoon he received CPAP trials. Patient's CXR looks pulmonary edema and he received additional 20 mg of Lasix today and tomorrow. Dr. Uribe updated the patient's family via phone today and they do not wish to change his code status. Patient's Robinul and scopolamine was decreased. 11/04: Patient was started on Mucomyst due to thick secretion, will continue gentle diuresis and again began T-piece trials. Pa this time my examination he was on CPAP trial 10 and was rested overnight, assist control. According to documentation patient rested on CPAP trial yesterday for approximately 4-1/2 hours. No acute events reported overnight. 11/05 patient improved with Mucomyst. Attempted weaning to begin T-piece trial. Physical examination consistent with anoxia 11/06. No new events over p.m. Secretions appear to be controlled. Updated family today. All questions and concerns answered to family satisfaction. 11/07: T-piece trials to resume. No acute events overnight. Continue current care. PT/OT consult. Transfer to [facility]. 11/09/2020. No new issues. Continue trach care, secretion control and airway management. Continue tube feedings which the patient is tolerating. Gastrostomy tube care. 11/11: Patient has remained on T-piece for 24 hours and he will be transferred to the floor. He is restarted on Mucomyst today per [facility]. 11/12: The patient was transferred to the floor yesterday and remained stable on T-piece. Continue tracheostomy care, secretion control and airway management. Continue Mucomyst. -10/24 MRI Brain shows restricted diffusion and increased T2 signal cerebral cortex which can be seen in the setting of anoxic brain injury and/ or status epilepticus. -10/26 EEG shows significant generalized slowing compatible with to moderate severe diffuse neuropathy recently compatible with anoxic/ischemic ence phalopathy 11/13: Patient remains on T-piece with oxygen at 8 L/min and saturations of 97%. Continue tracheostomy care secretion control and airway management. Gastrostomy tube care. Tube feedings with aspiration precaution. 11/14: Patient with an episode yesterday evening of tachypnea and desaturation. Also, patient noted to have distended abdomen/bladder which is likely causing respiratory distress. Tuttle was placed for urinary retention. ABG revealed pH 7.3, PCO2 68 and PO2 of 101. Pulmonology made no changes. Patient still on T- piece at 10 L/min with FiO2 35%. Continue tracheostomy care secretion control and airway management. Gastrostomy tube care. Tube feedings with aspiration precaution. 11/15. Has thick secretions from the tracheostomy. Remains on 6 L of oxygen. Tuttle was placed yesterday for distended bladder. 11/16. Not responsive. Temp spikes noted - 100.2F. Will get sputum culture. Continue oxygen supplementation. Needs placement. Discussed with patients spouse today. 11/17. Waiting for placement. Has [employer] insurance. He remains unresponsive. Temp 99.7. Chest xray, sputum culture pending. 11/18 patient is awake, confused, nonverbal and does not follow simple commands, bilateral wrist restraints, lab results reviewed, chart and all interdisciplinary notes reviewed. Discussed with SHAWN Marquez to reconsult on the patient Objective - Constitutional Vitals: Vital Signs - 12hr 11/17/20 11/17/20 11/18/20 22:45 22:52 00:00 Temperature 99.0 F Pulse Rate 82 Respiratory 19 Rate Blood Pressure 134/71 O2 Sat by Pulse Oximetry O2 Sat by Pulse 96 Oximetry [ Assessment] 11/18/20 11/18/20 11/18/20 04:37 07:26 07:30 Temperature 99.1 F Pulse Rate 89 Respiratory 19 Rate Blood Pressure 169/85 175/89 O2 Sat by Pulse 98 Oximetry O2 Sat by Pulse Oximetry [ Assessment] 11/18/20 10:02 Temperature Pulse Rate 89 Respiratory Rate Blood Pressure 175/89 O2 Sat by Pulse Oximetry O2 Sat by Pulse Oximetry [ Assessment] General appearance: Present: no acute distress - EENT Eyes: PERRL, EOM intact - Neck Neck: supple - Respiratory Respiratory: bilateral: CTA, diminished - Cardiovascular Rhythm: regular Heart Sounds: Present: S1 & S2 Extremity abnormal: edema (2+ bilateral lower extremity edema) - Gastrointestinal General gastrointestinal: Present: soft, non-tender, distended Rectal Exam: deferred - Genitourinary Male genitourinary: deferred - Integumentary Integumentary: clear - Neurologic Neurologic: other (Nonverbal, does not follow simple commands, limited neuro exam) - Psychiatric Psychiatric: other (Flat affect) - Labs CBC & Chem 7: 11/18/20 05:20 11/18/20 05:20 Labs: Abnormal lab results 11/17/20 11/17/20 11/17/20 Range/Units 12:24 17:45 23:46 RBC (3.65-5.03) M/mm3 Hgb (11.8-15.2) gm/dl Hct (35.5-45.6) % RDW (13.2-15.2) % Lymph % (Auto) (13.4-35.0) % [place] % (Auto) (0.0-7.3) % Eos % (Auto) (0.0-4.3) % Lymph # (Auto) (1.2-5.4) K/mm3 [place] # (Auto) (0.0-0.8) K/mm3 Seg Neutrophils % (40.0-70.0) % Carbon Dioxide (22-30) mmol/L BUN (9-20) mg/dL Glucose (75-100) mg/dL POC Glucose 144 H 117 H 118 H (70-105) mg/dL Albumin (3.9-5) g/dL 11/18/20 11/18/20 11/18/20 Range/Units 05:20 05:20 05:34 RBC 3.17 L (3.65-5.03) M/mm3 Hgb 9.2 L (11.8-15.2) gm/dl Hct 28.8 L (35.5-45.6) % RDW 15.4 H (13.2-15.2) % Lymph % (Auto) 9.7 L (13.4-35.0) % [place] % (Auto) 11.3 H (0.0-7.3) % Eos % (Auto) 5.3 H (0.0-4.3) % Lymph # (Auto) 0.7 L (1.2-5.4) K/mm3 [place] # (Auto) 0.9 H (0.0-0.8) K/mm3 Seg Neutrophils % 73.3 H (40.0-70.0) % Carbon Dioxide 39 H (22-30) mmol/L BUN 22 H (9-20) mg/dL Glucose 134 H (75-100) mg/dL POC Glucose 139 H (70-105) mg/dL Albumin 3.0 L (3.9-5) g/dL HEART Score - HEART Score EKG: Non-specific Age: 45-65 Troponin: Troponin T 0.125 ng/mL (0.00-0.029) H* D 10/12/20 04:00 Troponin: 1-3x normal limit - Critical Actions Critical Actions: 4-6 pts:12-16.6% risk of adverse cardiac event. Should be admitted
[2020-11-18] MEDS: FUROSEMIDE 20 MG TAB PO SCH (13:00)
[2020-11-18] MEDS: cloNIDine 0.2 MG TAB PO SCH ×2 (13:01→21:54)
[2020-11-18] MEDS ORDERED: VANCOMYCIN 2,000 MG in SODIUM CHLORIDE 0.9% 500 ML 500 ML IV ONE (13:10)
--- NOTE | 2020-11-18 13:36 | Progress Note ---
Assessment and Plan Cultures: SARS CoV2 PCR: negative. 10/10/2020 blood culture: No growth 10/10/2020 ET aspirate culture: Usual respiratory antonio 10/11/2020 urine culture: no growth 10/18/2020 blood culture: No growth today 10/18/2020 tracheal aspirate date: MRSA 10/20/2020 right nare MRSA 11/16/2020 tracheal aspirate: MRSA A/P: 55-year-old male with hypertension, asthma, obesity came into the emergency room after receiving the Covid vaccine and passing out in the car at the emergency room bay. Patient was found to be unresponsive with no pulse, ACLS was initiated, prolonged complicated hospitalization, now s/p trach, PEG. He comp leted treatment for MRSA pneumonia as well as other empiric abx: #Low-grade fevers, tracheal aspirate positive for MRSA: No significant pneumonia noted on chest x-ray. Tracheobronchitis is possible. #Acute respiratory failure: Status post trach #Urine tox screen positive for THC #Acute encephalopathy: Anoxic brain injury Recs: -CRP, procalcitonin ordered -IV vancomycin started -Fevers could also be central in etiology -Remove indwelling PICC line if possible, remains at risk of infection -RT order placed for replacement of tracheostomy d/W Dr. Raad Marquez MD, FACP [facility] ([facility] O: [phone] F: [phone] Subjective Date of service: 11/18/20 Principal diagnosis: Cardiac arrest; Septic Shock; Ac. hypoxemic & hypercapnic resp failure; MOE Interval history: Patient with low-grade fevers. ID reconsulted. His tracheal aspirate culture has grown MRSA. Oxygenation otherwise has been stable. Objective - Exam Narrative Exam: Physical Exam: Constitutional: opens eyes, doesn't follow commands Head, Ears, Nose: Normocephalic, atraumatic. External ears, nose normal. Eyes: Conjunctivae/corneas clear. No icterus. No ptosis. Neck: trach + Cardiovascular: S1, S2 + Respiratory: AE fair bilaterally and equal GI: Soft, bowel sounds +, G tube + Musculoskeletal:no edema Skin: No rash or abscess Hem/Lymphatic: No palpable cervical or supraclavicular nodes. No lymphangitis Psych: no agitation Neurological: opens eyes, doesn't follow commands - Constitutional Vitals: Vital Signs Temp Pulse Resp BP Pulse Ox 99.1 F 89 19 131/71 98 11/18/20 10:41 11/18/20 13:02 11/18/20 04:37 11/18/20 13:02 11/18/20 08:05 Temperature -Last 24 Hours Temperature 99.1 F Temperature 99.1 F Temperature 99.0 F Temperature 100.2 F Temperature 100.2 F Temperature 32.1 F - Labs CBC & Chem 7: 11/18/20 05:20 11/18/20 05:20 Labs: Abnormal lab results 11/17/20 11/17/20 11/17/20 Range/Units 12:24 17:45 23:46 RBC (3.65-5.03) M/mm3 Hgb (11.8-15.2) gm/dl Hct (35.5-45.6) % RDW (13.2-15.2) % Lymph % (Auto) (13.4-35.0) % [place] % (Auto) (0.0-7.3) % Eos % (Auto) (0.0-4.3) % Lymph # (Auto) (1.2-5.4) K/mm3 [place] # (Auto) (0.0-0.8) K/mm3 Seg Neutrophils % (40.0-70.0) % Carbon Dioxide (22-30) mmol/L BUN (9-20) mg/dL Glucose (75-100) mg/dL POC Glucose 144 H 117 H 118 H (70-105) mg/dL Albumin (3.9-5) g/dL 11/18/20 11/18/20 11/18/20 Range/Units 05:20 05:20 05:34 RBC 3.17 L (3.65-5.03) M/mm3 Hgb 9.2 L (11.8-15.2) gm/dl Hct 28.8 L (35.5-45.6) % RDW 15.4 H (13.2-15.2) % Lymph % (Auto) 9.7 L (13.4-35.0) % [place] % (Auto) 11.3 H (0.0-7.3) % Eos % (Auto) 5.3 H (0.0-4.3) % Lymph # (Auto) 0.7 L (1.2-5.4) K/mm3 [place] # (Auto) 0.9 H (0.0-0.8) K/mm3 Seg Neutrophils % 73.3 H (40.0-70.0) % Carbon Dioxide 39 H (22-30) mmol/L BUN 22 H (9-20) mg/dL Glucose 134 H (75-100) mg/dL POC Glucose 139 H (70-105) mg/dL Albumin 3.0 L (3.9-5) g/dL 11/18/20 Range/Units 11:20 RBC (3.65-5.03) M/mm3 Hgb (11.8-15.2) gm/dl Hct (35.5-45.6) % RDW (13.2-15.2) % Lymph % (Auto) (13.4-35.0) % [place] % (Auto) (0.0-7.3) % Eos % (Auto) (0.0-4.3) % Lymph # (Auto) (1.2-5.4) K/mm3 [place] # (Auto) (0.0-0.8) K/mm3 Seg Neutrophils % (40.0-70.0) % Carbon Dioxide (22-30) mmol/L BUN (9-20) mg/dL Glucose (75-100) mg/dL POC Glucose 136 H (70-105) mg/dL Albumin (3.9-5) g/dL
[2020-11-18] MEDS: LORazepam 2 MG/ML VIAL IV PRN (13:46)
[2020-11-18] MEDS ORDERED: VANCOMYCIN PHARMACY TO DOSE IV SCH (14:00)
[2020-11-18] MEDS ORDERED: VANCOMYCIN 1,500 MG in SODIUM CHLORIDE 0.9% 500 ML 500 ML IV SCH (15:15)
[2020-11-18] MEDS: fentaNYL 25 MCG/HR PATCH 72HR TD SCH (18:21)
[2020-11-18] MEDS: QUEtiapine 200 MG TAB PO SCH (21:40)
[2020-11-19] MEDS ORDERED: VANCOMYCIN 1,500 MG in SODIUM CHLORIDE 0.9% 500 ML 500 ML IV SCH (01:00)
[2020-11-19] MEDS: hydrALAZINE 100 MG TAB PO SCH ×3 (05:37→22:01)
[2020-11-19] MEDS: GLYCOPYRROLATE 1 MG TAB PO SCH ×3 (05:37→22:01)
[2020-11-19] MEDS: cloNIDine 0.2 MG TAB PO SCH ×3 (05:37→18:02)
[2020-11-19 05:53] LABS: Basophils % (Auto) 0.5 % (0.0-1.8); Eosinophils # (Auto) 0.3 K/mm3 (0.0-0.4); Hematocrit 28.7 % (35.5-45.6); Hemoglobin 9.1 gm/dl (11.8-15.2); Lymphocytes # (Auto) 1.1 K/mm3 (1.2-5.4); Lymphocytes % (Auto) 16.5 % (13.4-35.0); Mean Corpuscular HGB Conc 32 % (32-34); Mean Corpuscular Volume 91 fl (84-94); Monocytes # (Auto) 0.8 K/mm3 (0.0-0.8); Monocytes % (Auto) 12.8 % (0.0-7.3); Platelet Count 253 K/mm3 (140-440); Red Blood Count 3.15 M/mm3 (3.65-5.03); Red Cell Distribution Width 15.7 % (13.2-15.2)
[2020-11-19 06:11] LABS: Alanine Aminotransferase 8 units/L (7-56); Albumin 3.1 g/dL (3.9-5); BUN/Creatinine Ratio 26; Blood Urea Nitrogen 23 mg/dL (9-20); Calcium 8.9 mg/dL (8.4-10.2); Hemolysis Index 4
--- NOTE | 2020-11-19 10:25 | Event Note ---
Date: 11/19/20 Consult reviewed. Vascular does not provide IV access. IV team unable to place line. Reviewed note and noted that patient had orders for PICC line removed. Since IV team cannot place a new peripheral IV, if PICC removed, then will need a new PICC line. Any nontunnled central line carries some infectious risks. Recommend PICC line for central access. If there is an exit site infection associated with the line, then recommend new PICC line placement at a new site from the PICC team and removal of the old line. This can be coordinated with the PICC team.
--- NOTE | 2020-11-19 10:51 | Event Note ---
Date: 11/19/20 Code arielle was called on this patient as the patient went into respiratory distress Patient has anoxic brain injury and has tracheostomy Patient was actively suctioned through the tracheostomy with thick greenish expectorant Tracheostomy tube was changed After thorough suctioning oxygen saturations went up to 97% He is on 8 L and 35% FiO2 Discussed with RN for frequent suctioning via tracheostome His blood pressure is stable Stat chest x-ray was ordered
[2020-11-19] MEDS: amLODIPine 10 MG TAB PO SCH (11:00)
[2020-11-19] MEDS: METOPROLOL TARTRATE 50 MG TAB PO SCH ×3 (11:00→22:01)
[2020-11-19] MEDS: levETIRAcetam 500 MG/5 ML ORAL LIQD PO SCH ×3 (11:01→22:02)
[2020-11-19] MEDS: FUROSEMIDE 20 MG TAB PO SCH (11:01)
[2020-11-19] MEDS: HEPARIN 5,000 UNIT/1 ML VIAL SUB-Q SCH ×3 (11:01→22:02)
[2020-11-19] MEDS: LANSOPRAZOLE 30 MG SOLUTAB FEEDTUBE SCH ×2 (11:01→22:03)
[2020-11-19] MEDS: MINOXIDIL 2.5 MG TAB PO SCH (11:01)
[2020-11-19] MEDS: QUEtiapine 100 MG TAB PO SCH (11:01)
[2020-11-19] MEDS: DOCUSATE SODIUM 100 MG/10 ML ORAL LIQD PO SCH ×2 (11:01→22:02)
[2020-11-19] MEDS: POLYETHYLENE GLYCOL 3350 17 GM POWDER PO SCH (11:02)
[2020-11-19] MEDS: QUEtiapine 25 MG TAB PO SCH (11:02)
--- NOTE | 2020-11-19 11:12 | Progress Note ---
Subjective Date of service: 11/19/20 Principal diagnosis: Cardiac arrest; Septic Shock; Ac. hypoxemic & hypercapnic resp failure; MOE Interval history: This is a 55-year-old male with hypertension, asthma, obesity who was admitted on 10/10 after cardiac arrest x2 (supposedly after COVID-19 vaccine injection), sepsis, right-sided pneumonia, NSTEMI type II, acute heart failure, acute hypoxic respiratory failure, acute kidney injury and anoxic brain injury. Sepsis s/p multiple Cardiac Arrests Continue tube feedings Continue present medications s/p right-sided pneumonia MRSA in tracheal aspirate Repeat tracheal aspirate from 11/16 is positive for MRSA Rule out active infection versus colonization Completed linezolid Discussed with Dr. Marquez and reviewed his note Patient has been started on vancomycin Per recommendations of ID, PICC line needs to be removed and a new PICC line placed However PICC team was unable to place a PICC line or even a peripheral line Consult placed with vascular surgery and discussed with Dr. Talbert At this time he does not recommend any new PICC line and wants to monitor as the patient is afebrile and also tracheal aspirate is positive for MRSA and does not have MRSA bacteremia. Vascular note reviewed NSTEMI type II Continue present medications Acute heart failure Afib/Aflutter Rate controlled Continue management per cardiology recommendations Acute hypoxic respiratory failure Status post tracheostomy On trach collar Patient is on 8 L and 35% FiO2 via trach Oxygen saturation is 96 to 97% Acute kidney injury (improved) HTN Poorly controlled Continue amlodipine , metoprolol , hydralazine and clonidine via PEG tube Obesity Seizure disorder Continue Keppra -Infectious disease, CCM, GI, nephrology, cardiology, surgery consulted, appreciate recommendations -s/p Antibiotic therapy -10/18 recultured (blood/sputum/nasal discharge and urinalysis), tracheal aspirate with MRSA -S/p Linezolid -Continue antihypertensive regimen -s/p IV amiodarone for A. fib/a flutter now on p.o. beta-shital -Trend CBC, BMP, LFT -trach/peg 10/27 -Mucomyst -Keppra -Avoid nephrotoxic medications, strict intake and output, renal ultrasound shows no obstruction -10/10 echocardiogram shows left internal systolic function normal, moderate concentric left ventricle hypertrophy, mild to side diastolic dysfunction, LVEF 55 to 60% with no pericardial effusion -Bilateral lower extremity Doppler ultrasound negative for DVT/SVT which shows bilateral popliteal cysts -MRI Brain shows restricted diffusion and increased T2 signal cerebral cortex which can be seen in the setting of anoxic brain injury and/ or status epilepticus. -Repeat EEG shows significant generalized slowing compatible with to moderate severe diffuse neuropathy recently compatible with anoxic/ischemic encephalopathy -Will get sputum cultures and chest xray as he has thick secretions and Temp >100F. GI/DVT prophylaxis: SCDs to bilateral lower extremities while in bed, PPI, Heparin subq Dispo: retirement facility versus LTAC History Interval history: This is a 55-year-old male with hypertension, asthma, obesity in the emergency by presented to the emergency department on 10/10 after receiving a Covid vaccine being found unresponsive in his car in the emergency room bay with no pulse and ACLS protocol was initiated from his car to emergency room #21 where it was continued. Patient was intubated after ROSC was achieved and a central line was placed and the patient was initiated on pressors. In the emergency room patient seems to have seizure-like activity and then collapsed and was unresponsive with no palpable pulse and ACLS was again initiated patient with achievement of ROSC. Patient again coded with ACLS protocol in the CT room. Upon arrival to the ICU patient again coded and ROSC was achieved and he was placed on epinephrine, Lasix, heparin and sodium bicarbonate drip and sedated with propofol. An NG tube was placed, A-line was placed. Patient was admitted to the hospitalist service with consult to CCM, nephrology, infectious disease and cardiology. 10/11: Patient COVID-19 PCR is pending and he remains on mechanical ventilation, examination on assist control 400/30/12/0.95. Patient is scheduled for an echocardiogram and we will obtain bilateral lower extremity Doppler ultrasound given elevated D-dimer. Patient was supposed to have a CTA chest when he coded yesterday. We will begin trickle feeding. This morning patient was on a heparin drip and was noted to have bloody drainage from his NG tube. Heparin drip was discontinued. 10/12: Patient remains on propofol and Lasix drip at the time my examination and he is on assist control 400/25/12/0.60. Patient is hypokalemic this morning which was repleted. Nephrology discontinued Lasix drip and Diamox. Patient is hypertensive and has been started on hydralazine and beta-shital IV. He has been titrated off his vasopressors since yesterday. Vancomycin discontinued. Patient is currently on cefepime and azithromycin. 10/13: Sedation vacation attempted today and patient was not responsive to verbal or painful stimuli, does not track or focus or follow commands. This morning the patient has some respiratory alkalosis on ABG, hypernatremia and metabolic alkalosis on BMP. His kidney functions has improved slightly. Patient still has leukocytosis and infectious disease was like to continue antibiotic therapy. GI evaluated the patient yesterday and started the patient on PPI does not plan to scope at this time. At the time my examination patient assist-control 400/20/12/0.40 and sedated on propofol at 20. 10/14: GI has recommended a CT abdomen since there is increased output from OG tube and an MRI brain without contrast has been ordered per neurology recommendations. EEG is pending and the patient has been started on Keppra per neurology.. Nutrition has been consulted for initiation of parenteral nutrition. Patient remains sedated with propofol and his hypernatremia, leukocytosis, acute kidney injury and metabolic alkalosis is improving. Patient has hypokalemia today which was repleted. At the time of my examination patient was on assist control 400/14/10/0.40 and CCM has dropped his rate to 12 and PEEP to 8. We have labs ordered for a.m. He was given a clonidine patch given persistent hypertension and he remains on D5 water per nephrology. 10/15: This morning patient was started to have a low-grade fever and he will c ontinue antibiotic therapy per infectious disease. He will remove Tuttle catheter today and place a condom cath. Patient's renal function is worsening with a BUN/creatinine of 57/2.4 today and he has hyperphosphatemia at 5.2. This morning the time my examination patient is sedated on fentanyl and has TPN infusing. He is on assist control 400/12/8/0.35. Per GI we will start trial of tube feedings initiation has been reconsulted for orders. 10/18: Patient was febrile overnight and infectious disease has recultured (blood/sputum/right nostril culture) and sent in urinalysis. Cefepime was exte nded due to high fever and was started on vancomycin. Tube feeding is at goal and we will discontinue his parenteral nutrition. Patient is unable to obtain his MRI due to increased hypoxia and nasal secretions. He will be started on CPAP trials today. This time I examination patient was sedated on fentanyl and had PPN running at 42. His renal function tests have worsened and now has hyperchloremia. Hypernatremia has resolved. 10/19: Patient's T-max was 100.2 and he was pancultured yesterday, remains on antibiotic therapy and still has copious drainage from his nostrils. Patient still has leukocytosis however his/creatinine improved slightly to 3.1 from 3.3. Patient's urinalysis from yesterday shows pyuria. Patient's tracheal aspirate from yesterday grew Staph aureus. Patient is on cefepime and vancomycin. 10/20: This morning at the time my examination patient was CPAP trial of 04/19 and his T-max was 100.9. Patient sedated on fentanyl at 2 just received IV push fentanyl for tachycardia. Today his creatinine is 2.8 from 3.1 yesterday. Infectious disease has stopped cefepime and vancomycin and started linezolid and MRSA PCR is pending. Today removed his NG tube and replaced it with OG tube. We will keep the patient normal saline at 75 mL's per hour for 3 L. Patient dev eloped A. fib/a flutter overnight and cardiology has increased his Lopressor and IV amiodarone. We requested neurology evaluation today. 10/21: Cardiology we will increase Lopressor to 3 times daily and discontinue his amiodarone drip. Infectious disease would like a sinus CT when feasible however patient did have a moment of desatting earlier this week when we attempted MRI brain. And again yesterday when we attempted a "trial run" with positioning at bedside Patient is on linezolid for 10 days per ID. 10/22/20; patient was seen and evaluated this morning, patient had low-grade fever overnight. Patient is on Lopressor per cardiology recommendation. Patient did not follow commands, no improvement in mental status. Evaluated by neurology yesterday and neurology once MRI or CAT scan but cannot be done because patient desats when he lies flat. Patient is on linezolid per ID recommendation. Continue NG tube feeding. Continue with Keppra. Patient is on assist control with PEEP of 6. Management plan was discussed with his yesterday. 10/23/2020; patient is on Zyvox for positive MRSA from tracheal aspirate and nasal secretion culture. Patient's mentation did not improve and does not follow commands. He was reevaluated by neurology and recommend MRI once patient is able to tolerate. MRI could not be done, CT scan could not be done because the patient could not lie flat. Clinically patient looks like she has anoxic encephalopathy. Patient is on NG tube feeding and on mechanical ventilation. Patient is on Keppra. Management plan was discussed with his . 10/24: This morning the patient is on AC TV 400,R 16, Peep 6 and FiO2 of 30% and sedated on 1mcg of Fentayl. He is hypernatremic and his kidney function tests have slightly improved. RN will attempt to obtain MRI Brain today since the patient was able to tolerate a "trial run" of being flat. [facility] plans to resume CPAP trials once MRI obtained. 10/25: This morning the time of examination patient was on assist control tidal volume 400, rate 16, PEEP 6, FiO2 30% and he is currently on CPAP. His MRI brain finding is consistent with status epilepticus or anoxic brain injury. Patient is EEG pending. No acute overnight events reported. 10/26: Patient has been on a CPAP trial 14/6 which she has been tolerating. Surgery was consulted for trach/PEG. Patient's hypernatremia and hyperchloremia slightly better as well as his kidney functions. He has received cardiac clearance for his trach and PEG. No acute events reported overnight. 10/27: At the time my examination patient was on CPAP trial 15/6 and 30% FiO2. Patient's electrolyte abnormalities were improving and sources kidney function. His T-max overnight was 99.3 and he remains on linezolid. No acute events reported overnight. 10/28: Yesterday patient had a trach and PEG placed. Patient remains n.p.o. as he has not been cleared by surgery to resume p.o. intake. Today he has slight leukocytosis which is likely reactive, hyponatremia, metabolic alkalosis however his kidney function continues to improve. No acute events overnight. 10/29: Plan to start tube feeding today, patient remains on mechanical ventilation with trach tube. Remains comatose without any change in mental status. Called and updated. 10/30: Vitals stable, patient remains on trach tube with ventilator. Tolerating tube feeding, otherwise clinically unchanged. Continue to provide supportive care and wean off from vent as tolerated. 10/31: No acute events reported overnight. Patient is CPAP at the time my examination however he will be tried on trach collar and we will obtain an ABG within 2 hours. 11/01. Patient is on a trach collar at 35% FiO2, he was reported, patient received Lasix and will obtain an ABG at 2100. dr. Uribe updated his and his mother is at bedside visiting him. 11/02. Patient was rested on assist control due to "tube feedings" endotracheal tube however CXR looks mild atelectasis rather than pneumonia. [facility] has given the patient another dose of Lasix and will obtain a CXR in the a.m. Patient remains with low-grade fever and we will resume daily SBT as tolerated. We will obtain a.m. labs and resume tube feedings. 11/03: Overnight the patient was rested on assist control and this afternoon he received CPAP trials. Patient's CXR looks pulmonary edema and he received additional 20 mg of Lasix today and tomorrow. Dr. Uribe updated the patient's family via phone today and they do not wish to change his code status. Patient's Robinul and scopolamine was decreased. 11/04: Patient was started on Mucomyst due to thick secretion, will continue gentle diuresis and again began T-piece trials. Pa this time my examination he was on CPAP trial 10 and was rested overnight, assist control. According to do cumentation patient rested on CPAP trial yesterday for approximately 4-1/2 hours. No acute events reported overnight. 11/05 patient improved with Mucomyst. Attempted weaning to begin T-piece trial. Physical examination consistent with anoxia 11/06. No new events over p.m. Secretions appear to be controlled. Updated family today. All questions and concerns answered to family satisfaction. 11/07: T-piece trials to resume. No acute events overnight. Continue current care. PT/OT consult. Transfer to [facility]. 11/09/2020. No new issues. Continue trach care, secretion control and airway management. Continue tube feedings which the patient is tolerating. Gastrostomy tube care. 11/11: Patient has remained on T-piece for 24 hours and he will be transferred to the floor. He is restarted on Mucomyst today per [facility]. 11/12: The patient was transferred to the floor yesterday and remained stable on T-piece. Continue tracheostomy care, secretion control and airway management. Continue Mucomyst. -10/24 MRI Brain shows restricted diffusion and increased T2 signal cerebral cortex which can be seen in the setting of anoxic brain injury and/ or status epilepticus. -10/26 EEG shows significant generalized slowing compatible with to moderate severe diffuse neuropathy recently compatible with anoxic/ischemic encephalopathy 11/13: Patient remains on T-piece with oxygen at 8 L/min and saturations of 97%. Continue tracheostomy care secretion control and airway management. Gastrostomy tube care. Tube feedings with aspiration precaution. 11/14: Patient with an episode yesterday evening of tachypnea and desaturation. Also, patient noted to have distended abdomen/bladder which is likely causing respiratory distress. Tuttle was placed for urinary retention. ABG revealed pH 7.3, PCO2 68 and PO2 of 101. Pulmonology made no changes. Patient still on T- piece at 10 L/min with FiO2 35%. Continue tracheostomy care secretion control and airway management. Gastrostomy tube care. Tube feedings with aspiration precaution. 11/15. Has thick secretions from the tracheostomy. Remains on 6 L of oxygen. Tuttle was placed yesterday for distended bladder. 11/16. Not responsive. Temp spikes noted - 100.2F. Will get sputum culture. Continue oxygen supplementation. Needs placement. Discussed with patients spouse today. 11/17. Waiting for placement. Has [employer] insurance. He remains unresponsive. Temp 99.7. Chest xray, sputum culture pending. 11/18 patient is awake, confused, nonverbal and does not follow simple commands, bilateral wrist restraints, lab results reviewed, chart and all inte rdisciplinary notes reviewed. Discussed with ID Dr. Marquez to reconsult on the patient 11/19 patient earlier this morning went into respiratory arrest. He was successfully resuscitated. Tracheostomy tube changed. Actively suctioned. Stat chest x-ray were was ordered. Called patient's to discuss his CODE STATUS. She wants me to call her back in about 10 minutes. Patient remains unresponsive ID note reviewed. Poor prognosis. Objective - Constitutional Vitals: Vital Signs - 12hr 11/18/20 11/19/20 11/19/20 23:44 00:00 08:14 Temperature 99.2 F Pulse Rate 72 73 Respiratory 22 22 Rate Blood Pressure 107/53 O2 Sat by Pulse 98 100 Oximetry O2 Sat by Pulse 95 Oximetry [ Assessment] 11/19/20 11:00 Temperature Pulse Rate 101 H Respiratory Rate Blood Pressure 191/99 O2 Sat by Pulse Oximetry O2 Sat by Pulse Oximetry [ Assessment] General appearance: Present: mild distress, obese, other (Unresponsive) - EENT Eyes: PERRL - Neck Neck: supple - Respiratory Respiratory: bilateral: diminished, negative: rales, rhonchi - Cardiovascular Rhythm: regular Heart Sounds: Present: S1 & S2 Extremities: No edema - Gastrointestinal General gastrointestinal: Present: soft, non-tender Rectal Exam: deferred - Genitourinary Male genitourinary: deferred - Neurologic Neurologic: other (Unresponsive) - Labs CBC & Chem 7: 11/19/20 04:18 11/19/20 04:18 Labs: Abnormal lab results 11/18/20 11/18/20 11/18/20 Range/Units 11:20 13:44 16:46 RBC (3.65-5.03) M/mm3 Hgb (11.8-15.2) gm/dl Hct (35.5-45.6) % RDW (13.2-15.2) % [place] % (Auto) (0.0-7.3) % Eos % (Auto) (0.0-4.3) % Lymph # (Auto) (1.2-5.4) K/mm3 Sodium (137-145) mmol/L Carbon Dioxide (22-30) mmol/L BUN (9-20) mg/dL Glucose (75-100) mg/dL POC Glucose 136 H 121 H (70-105) mg/dL C-Reactive Protein 4.40 H (0.00-1.30) mg/dL Albumin (3.9-5) g/dL 11/18/20 11/19/20 11/19/20 Range/Units 23:47 04:18 04:18 RBC 3.15 L (3.65-5.03) M/mm3 Hgb 9.1 L (11.8-15.2) gm/dl Hct 28.7 L (35.5-45.6) % RDW 15.7 H (13.2-15.2) % [place] % (Auto) 12.8 H (0.0-7.3) % Eos % (Auto) 5.0 H (0.0-4.3) % Lymph # (Auto) 1.1 L (1.2-5.4) K/mm3 Sodium 146 H (137-145) mmol/L Carbon Dioxide 40 H (22-30) mmol/L BUN 23 H (9-20) mg/dL Glucose 121 H (75-100) mg/dL POC Glucose 117 H (70-105) mg/dL C-Reactive Protein (0.00-1.30) mg/dL Albumin 3.1 L (3.9-5) g/dL 11/19/20 Range/Units 05:41 RBC (3.65-5.03) M/mm3 Hgb (11.8-15.2) gm/dl Hct (35.5-45.6) % RDW (13.2-15.2) % [place] % (Auto) (0.0-7.3) % Eos % (Auto) (0.0-4.3) % Lymph # (Auto) (1.2-5.4) K/mm3 Sodium (137-145) mmol/L Carbon Dioxide (22-30) mmol/L BUN (9-20) mg/dL Glucose (75-100) mg/dL POC Glucose 147 H (70-105) mg/dL C-Reactive Protein (0.00-1.30) mg/dL Albumin (3.9-5) g/dL HEART Score - HEART Score EKG: Non-specific Age: 45-65 Troponin: Troponin T 0.125 ng/mL (0.00-0.029) H* D 10/12/20 04:00 Troponin: 1-3x normal limit - Critical Actions Critical Actions: 4-6 pts:12-16.6% risk of adverse cardiac event. Should be admitted
[2020-11-19] MEDS: SCOPOLAMINE TRANSDERMAL PATCH 72 HR TD SCH (11:14)
--- NOTE | 2020-11-19 11:26 | XRay Report ---
CHEST 1 VIEW 11/19/2020 11:07 AM INDICATION / CLINICAL INFORMATION: hypoxia. COMPARISON: 11/17/2020 FINDINGS: SUPPORT DEVICES: Stable, satisfactory device positioning. HEART / MEDIASTINUM: Stable. LUNGS / PLEURA: Stable mild pulmonary vascular congestion. No pneumothorax. ADDITIONAL FINDINGS: No significant additional findings. IMPRESSION: 1. No adverse change from the prior exam. Signer Name: Kashif Wagner MD Signed: 11/19/2020 11:22 AM Workstation Name: [id number]
--- NOTE | 2020-11-19 11:38 | Progress Note ---
Assessment and Plan Cultures: SARS CoV2 PCR: negative. 10/10/2020 blood culture: No growth 10/10/2020 ET aspirate culture: Usual respiratory antonio 10/11/2020 urine culture: no growth 10/18/2020 blood culture: No growth today 10/18/2020 tracheal aspirate date: MRSA 10/20/2020 right nare MRSA 11/16/2020 tracheal aspirate: MRSA A/P: 55-year-old male with hypertension, asthma, obesity came into the emergency room after receiving the Covid vaccine and passing out in the car at the emergency room bay. Patient was found to be unresponsive with no pulse, ACLS was initiated, prolonged complicated hospitalization, now s/p trach, PEG. He comp leted treatment for MRSA pneumonia as well as other empiric abx: #Low-grade fevers, tracheal aspirate positive for MRSA: No significant pneumonia noted on chest x-ray. Tracheobronchitis is possible. 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 #Acute respiratory failure: Status post trach #Urine tox screen positive for THC #Acute encephalopathy: Anoxic brain injury Recs: -f/u procalcitonin, if low anticipate stopping abx after 5 days to complete treatment for tracheobronchitis -continue IV vancomycin -Fevers could also be central in etiology -if febrile >101.5 F, get blood cultures Jose Marquez MD, FACP [facility] O: [phone] F: [phone] Subjective Date of service: 11/19/20 Principal diagnosis: Cardiac arrest; Septic Shock; Ac. hypoxemic & hypercapnic resp failure; MOE Interval history: Was moved to [facility] due to respiratory distress. He was suctioned and tracheostomy tube was changed. Patient is afebrile. Objective - Exam Narrative Exam: Physical Exam: Constitutional:unresponsive Head, Ears, Nose: Normocephalic, atraumatic. External ears, nose normal. Eyes: Conjunctivae/corneas clear. No icterus. No ptosis. Neck: trach + Cardiovascular: S1, S2 + Respiratory: AE fair bilaterally and equal GI: Soft, bowel sounds +, G tube + Musculoskeletal:no edema Skin: No rash or abscess Hem/Lymphatic: No palpable cervical or supraclavicular nodes. No lymphangitis Psych: no agitation Neurological: unresponsive - Constitutional Vitals: Vital Signs Temp Pulse Resp BP Pulse Ox 99.2 F 101 H 22 191/99 100 11/18/20 23:44 11/19/20 11:00 11/19/20 08:14 11/19/20 11:00 11/19/20 08:14 Temperature -Last 24 Hours Temperature 99.2 F Temperature 99.4 F Temperature 98.5 F - Labs CBC & Chem 7: 11/19/20 04:18 11/19/20 04:18 Labs: Abnormal lab results 11/18/20 11/18/20 11/18/20 Range/Units 11:20 13:44 16:46 RBC (3.65-5.03) M/mm3 Hgb (11.8-15.2) gm/dl Hct (35.5-45.6) % RDW (13.2-15.2) % [place] % (Auto) (0.0-7.3) % Eos % (Auto) (0.0-4.3) % Lymph # (Auto) (1.2-5.4) K/mm3 Sodium (137-145) mmol/L Carbon Dioxide (22-30) mmol/L BUN (9-20) mg/dL Glucose (75-100) mg/dL POC Glucose 136 H 121 H (70-105) mg/dL C-Reactive Protein 4.40 H (0.00-1.30) mg/dL Albumin (3.9-5) g/dL 11/18/20 11/19/20 11/19/20 Range/Units 23:47 04:18 04:18 RBC 3.15 L (3.65-5.03) M/mm3 Hgb 9.1 L (11.8-15.2) gm/dl Hct 28.7 L (35.5-45.6) % RDW 15.7 H (13.2-15.2) % [place] % (Auto) 12.8 H (0.0-7.3) % Eos % (Auto) 5.0 H (0.0-4.3) % Lymph # (Auto) 1.1 L (1.2-5.4) K/mm3 Sodium 146 H (137-145) mmol/L Carbon Dioxide 40 H (22-30) mmol/L BUN 23 H (9-20) mg/dL Glucose 121 H (75-100) mg/dL POC Glucose 117 H (70-105) mg/dL C-Reactive Protein (0.00-1.30) mg/dL Albumin 3.1 L (3.9-5) g/dL 11/19/20 Range/Units 05:41 RBC (3.65-5.03) M/mm3 Hgb (11.8-15.2) gm/dl Hct (35.5-45.6) % RDW (13.2-15.2) % [place] % (Auto) (0.0-7.3) % Eos % (Auto) (0.0-4.3) % Lymph # (Auto) (1.2-5.4) K/mm3 Sodium (137-145) mmol/L Carbon Dioxide (22-30) mmol/L BUN (9-20) mg/dL Glucose (75-100) mg/dL POC Glucose 147 H (70-105) mg/dL C-Reactive Protein (0.00-1.30) mg/dL Albumin (3.9-5) g/dL
[2020-11-19] MEDS ORDERED: VANCOMYCIN 2,000 MG in SODIUM CHLORIDE 0.9% 500 ML 500 ML IV SCH (16:00)
[2020-11-19] MEDS: VANCOMYCIN 2,000 MG in SODIUM CHLORIDE 0.9% 500 ML 500 ML IV SCH (16:19)
--- NOTE | 2020-11-19 16:21 | Progress Note ---
Assessment and Plan Cardiac arrest x3 with ROSC with anoxic injury Severe septic and cardiogenic shock Acute respiratory failure with hypoxia and hypercarbia s/p trach Acute pulmonary edema , resolved MOE (acute kidney injury) Lactic acidosis, severe metabolic acidosis, resolved Bilateral pneumonia, aspiration pneumonia Elevated troponins -Airway clearance, secretion management with tracheostomy care -continue Scopolamine for secretion control, add Robinul -ABG and CXR as clinically indicated - prn gentle diuresis, while monitoring renal function and hemodynamics -Replete electrolytes as clinically indicated - continue Seroquel for agitation control - continue contact precautions re: MRSA - follow clinically re: fevers / WBC - Monitor hemodynamics closely - wean supplemental oxygen for target O2 sats > 92 - aspiration precautions - continue lung protective strategies - avoid nephrotoxins, renally dose all medications - continue to avoid benzodiazepines, reduce the possibility of delirium - continue wound care per RN/WCN - prn analgesia per CPOT score - Maintenance of sleep-wake cycle, avoid delirium - continue enteral nutritional support at goal rate as tolerated - VTE prophylaxis - PT/OT/ROM exercises - continue mobility protocols for pressure ulcer prevention - Monitor hemodynamics closely - continue other care per attending / other consultants - discharge planning ongoing concurrently CONDITION: FAIR PROGNOSIS:FAIR CODE STATUS: FULL CODE Subjective Date of service: 11/19/20 Principal diagnosis: Cardiac arrest; Septic Shock; Ac. hypoxemic & hypercapnic resp failure; MOE Interval history: Patient is seen today for: Cardiac arrest with ROSC; Severe septic and cardiogenic shock; Acute respiratory failure with hypoxemia and hypercarbia; A cute pulmonary edema; MOE; Lactic acidosis; severe metabolic acidosis; Bilateral pneumonia; aspiration pneumonia; Elevated troponins Seen and examined at bedside; 24hour events reviewed; nursing and respiratory care staff consulted; no adverse overnight events reported to me; resting peacefully in bed ,trach to ATP; no fevers, no vomiting, no diarrhea, tolerating tube feedings Mental status changes persist, awake but not tracking, not obeying commands Transferred to [facility], s/p respiratory arrest thought to be secondary to mucous plug/secretions Objective Vital Signs - 12hr 11/19/20 11/19/20 11/19/20 08:14 11:00 12:00 Pulse Rate 101 H 70 Respiratory 22 Rate Blood Pressure 191/99 158/88 O2 Sat by Pulse 100 Oximetry 11/19/20 15:44 Pulse Rate 76 Respiratory Rate Blood Pressure 148/64 O2 Sat by Pulse Oximetry Constitutional: no acute distress, other (middle aged obese male with mildly increased respiratory efort at rest) Eyes: non-icteric ENT: oropharynx moist, oropharyngeal exudate pre (improved), other (midline tracheostomy) Neck: supple, no lymphadenopathy, no JVD Effort: mildly labored Ascultation: Bilateral: clear, diminished breath sounds, rhonchi (scant) Percussion: Bilateral: not dull Cardiovascular: regular rate and rhythm, other (S1,S2) Gastrointestinal: normoactive bowel sounds, soft, non-tender, non-distended ( protuberant) Integumentary: normal Extremities: no cyanosis, no edema, pulses normal, no ischemia or petechiae Neurologic: pupils equal and round, unable to assess, other (encephalopathic) Psychiatric: other (unable to assess re: AMS) CBC and BMP: 11/20/20 07:30 11/20/20 07:30 ABG, PT/INR, D-dimer: ABG ABG pH 7.374 (7.320-7.450) 11/13/20 16:43 POC ABG pCO2 68.4 mmHg (32.0-48.0) H 11/13/20 16:43 ABG pCO2 55.5 mm Hg 10/16/20 05:10 POC ABG pO2 101.9 mmHg (83-108) 11/13/20 16:43 ABG pO2 104.5 mm Hg (80.0-90.0) H 10/16/20 05:10 POC ABG HCO3 39.0 11/13/20 16:43 ABG O2 Saturation 97.8 (0-100) 11/13/20 16:43 PT/INR, D-dimer PT 13.5 Sec. (12.2-14.9) 10/28/20 07:00 INR 1.05 (0.87-1.13) 10/28/20 07:00 D-Dimer 679.5 ng/mlDDU (0-234) H 10/10/20 10:48 Abnormal lab findings: Abnormal Labs 10/10/20 10/10/20 10/10/20 10:46 10:46 10:46 WBC RBC Hgb Hct RDW Lymph % (Auto) [place] % (Auto) Eos % (Auto) Lymph # (Auto) [place] # (Auto) Eos # (Auto) Seg Neutrophils % Lymphocytes % (Manual) Monocytes % (Manual) Seg Neutrophils # Seg Neutrophils # Man Lymphocytes # (Manual) Monocytes # (Manual) D-Dimer Heparin Anti-Xa Level ABG pH POC ABG pCO2 POC ABG pO2 ABG pO2 ABG HCO3 ABG O2 Saturation ABG Base Excess ABG Hemoglobin ABG Oxyhemoglobin ABG Sodium ABG Potassium ABG Chloride ABG Glucose VBG pH Oxyhemoglobin Carboxyhemoglobin Sodium Potassium Chloride Carbon Dioxide BUN Creatinine Glucose POC Glucose Lactic Acid 13.60 H* Calcium Phosphorus Magnesium Total Bilirubin AST ALT Ammonia 214.0 H Lactate Dehydrogenase Total Creatine Kinase CK-MB (CK-2) Troponin T C-Reactive Protein NT-Pro-B Natriuret Pep Total Protein Albumin Triglycerides TSH 6.260 H Arterial Blood Glucose Arterial Blood Ionized Calcium Urine pH Urine WBC (Auto) Urine Creatinine 10/10/20 10/10/20 10/10/20 10:46 10:48 10:48 WBC RBC 5.28 H Hgb 15.5 H Hct 48.8 H RDW Lymph % (Auto) [place] % (Auto) Eos % (Auto) Lymph # (Auto) [place] # (Auto) Eos # (Auto) Seg Neutrophils % Lymphocytes % (Manual) 42.0 H Monocytes % (Manual) Seg Neutrophils # Seg Neutrophils # Man Lymphocytes # (Manual) Monocytes # (Manual) D-Dimer Heparin Anti-Xa Level ABG pH POC ABG pCO2 POC ABG pO2 ABG pO2 ABG HCO3 ABG O2 Saturation ABG Base Excess ABG Hemoglobin ABG Oxyhemoglobin ABG Sodium ABG Potassium ABG Chloride ABG Glucose VBG pH Oxyhemoglobin Carboxyhemoglobin Sodium Potassium 3.3 L Chloride 91.2 L Carbon Dioxide BUN Creatinine 1.8 H Glucose 231 H POC Glucose Lactic Acid Calcium Phosphorus Magnesium Total Bilirubin AST 60 H ALT 57 H Ammonia Lactate Dehydrogenase Total Creatine Kinase CK-MB (CK-2) Troponin T C-Reactive Protein NT-Pro-B Natriuret Pep 1187 H Total Protein 9.0 H Albumin Triglycerides TSH Arterial Blood Glucose Arterial Blood Ionized Calcium Urine pH Urine WBC (Auto) Urine Creatinine 10/10/20 10/10/20 10/10/20 10:48 10:48 10:48 WBC RBC Hgb Hct RDW Lymph % (Auto) [place] % (Auto) Eos % (Auto) Lymph # (Auto) [place] # (Auto) Eos # (Auto) Seg Neutrophils % Lymphocytes % (Manual) Monocytes % (Manual) Seg Neutrophils # Seg Neutrophils # Man Lymphocytes # (Manual) Monocytes # (Manual) D-Dimer 679.5 H Heparin Anti-Xa Level ABG pH POC ABG pCO2 POC ABG pO2 ABG pO2 ABG HCO3 ABG O2 Saturation ABG Base Excess ABG Hemoglobin ABG Oxyhemoglobin ABG Sodium ABG Potassium ABG Chloride ABG Glucose VBG pH 6.870 L* Oxyhemoglobin Carboxyhemoglobin Sodium Potassium Chloride Carbon Dioxide BUN Creatinine Glucose POC Glucose Lactic Acid Calcium Phosphorus Magnesium Total Bilirubin AST ALT Ammonia Lactate Dehydrogenase 386 H Total Creatine Kinase CK-MB (CK-2) Troponin T C-Reactive Protein NT-Pro-B Natriuret Pep Total Protein Albumin Triglycerides TSH Arterial Blood Glucose Arterial Blood Ionized Calcium Urine pH Urine WBC (Auto) Urine Creatinine 10/10/20 10/10/20 10/10/20 14:10 14:20 15:50 WBC RBC Hgb Hct RDW Lymph % (Auto) [place] % (Auto) Eos % (Auto) Lymph # (Auto) [place] # (Auto) Eos # (Auto) Seg Neutrophils % Lymphocytes % (Manual) Monocytes % (Manual) Seg Neutrophils # Seg Neutrophils # Man Lymphocytes # (Manual) Monocytes # (Manual) D-Dimer Heparin Anti-Xa Level ABG pH 7.175 L 7.247 L POC ABG pCO2 85.0 H POC ABG pO2 43.7 L ABG pO2 60.3 L ABG HCO3 32.0 H ABG O2 Saturation 86.1 L ABG Base Excess ABG Hemoglobin ABG Oxyhemoglobin 67.7 L ABG Sodium ABG Potassium ABG Chloride ABG Glucose 247 H VBG pH Oxyhemoglobin 84.4 L Carboxyhemoglobin Sodium Potassium Chloride Carbon Dioxide BUN Creatinine Glucose POC Glucose Lactic Acid 4.00 H* Calcium Phosphorus Magnesium Total Bilirubin AST ALT Ammonia Lactate Dehydrogenase Total Creatine Kinase CK-MB (CK-2) Troponin T C-Reactive Protein NT-Pro-B Natriuret Pep Total Protein Albumin Triglycerides TSH Arterial Blood Glucose 247 H Arterial Blood Ionized Calcium 4.4 L Urine pH Urine WBC (Auto) Urine Creatinine 10/10/20 10/10/20 10/10/20 15:50 16:22 18:18 WBC RBC Hgb Hct RDW Lymph % (Auto) [place] % (Auto) Eos % (Auto) Lymph # (Auto) [place] # (Auto) Eos # (Auto) Seg Neutrophils % Lymphocytes % (Manual) Monocytes % (Manual) Seg Neutrophils # Seg Neutrophils # Man Lymphocytes # (Manual) Monocytes # (Manual) D-Dimer Heparin Anti-Xa Level ABG pH 7.171 L POC ABG pCO2 96.6 H POC ABG pO2 55.3 L ABG pO2 ABG HCO3 ABG O2 Saturation ABG Base Excess ABG Hemoglobin ABG Oxyhemoglobin 81.4 L ABG Sodium ABG Potassium ABG Chloride ABG Glucose 115 H VBG pH Oxyhemoglobin Carboxyhemoglobin Sodium Potassium Chloride Carbon Dioxide BUN Creatinine Glucose POC Glucose 132 H Lactic Acid Calcium Phosphorus Magnesium Total Bilirubin AST ALT Ammonia Lactate Dehydrogenase Total Creatine Kinase 1192 H CK-MB (CK-2) 21.7 H Troponin T 0.377 H* D C-Reactive Protein NT-Pro-B Natriuret Pep Total Protein Albumin Triglycerides TSH Arterial Blood Glucose 115 H Arterial Blood Ionized Calcium Urine pH Urine WBC (Auto) Urine Creatinine 10/10/20 10/10/20 10/10/20 18:18 18:18 22:49 WBC 23.0 H RBC 5.12 H Hgb Hct RDW Lymph % (Auto) [place] % (Auto) Eos % (Auto) Lymph # (Auto) [place] # (Auto) Eos # (Auto) Seg Neutrophils % Lymphocytes % (Manual) 4.0 L Monocytes % (Manual) 9.0 H Seg Neutrophils # Seg Neutrophils # Man 13.8 H Lymphocytes # (Manual) 0.9 L Monocytes # (Manual) 2.1 H D-Dimer Heparin Anti-Xa Level ABG pH POC ABG pCO2 POC ABG pO2 ABG pO2 ABG HCO3 ABG O2 Saturation ABG Base Excess ABG Hemoglobin ABG Oxyhemoglobin ABG Sodium ABG Potassium ABG Chloride ABG Glucose VBG pH Oxyhemoglobin Carboxyhemoglobin Sodium 146 H Potassium Chloride Carbon Dioxide 34 H D BUN 27 H Creatinine 2.7 H Glucose 102 H POC Glucose Lactic Acid Calcium Phosphorus Magnesium Total Bilirubin AST 90 H ALT 66 H Ammonia Lactate Dehydrogenase Total Creatine Kinase CK-MB (CK-2) Troponin T 0.273 H* D C-Reactive Protein NT-Pro-B Natriuret Pep Total Protein Albumin Triglycerides TSH Arterial Blood Glucose Arterial Blood Ionized Calcium Urine pH Urine WBC (Auto) Urine Creatinine 03/30/21 03/30/21 03/30/21 02:00 02:00 02:00 WBC 17.3 H RBC Hgb Hct RDW Lymph % (Auto) 3.9 L [place] % (Auto) Eos % (Auto) Lymph # (Auto) 0.7 L [place] # (Auto) Eos # (Auto) Seg Neutrophils % 93.0 H Lymphocytes % (Manual) Monocytes % (Manual) Seg Neutrophils # 16.1 H Seg Neutrophils # Man Lymphocytes # (Manual) Monocytes # (Manual) D-Dimer Heparin Anti-Xa Level ABG pH POC ABG pCO2 POC ABG pO2 ABG pO2 ABG HCO3 ABG O2 Saturation ABG Base Excess ABG Hemoglobin ABG Oxyhemoglobin ABG Sodium ABG Potassium ABG Chloride ABG Glucose VBG pH Oxyhemoglobin Carboxyhemoglobin Sodium 149 H Potassium 3.3 L Chloride 95.3 L Carbon Dioxide 37 H BUN 29 H Creatinine 2.6 H Glucose POC Glucose Lactic Acid Calcium Phosphorus Magnesium Total Bilirubin AST 80 H ALT 59 H Ammonia Lactate Dehydrogenase Total Creatine Kinase CK-MB (CK-2) Troponin T 0.201 H* D C-Reactive Protein NT-Pro-B Natriuret Pep Total Protein Albumin 3.6 L Triglycerides TSH Arterial Blood Glucose Arterial Blood Ionized Calcium Urine pH Urine WBC (Auto) Urine Creatinine 10/11/20 10/11/20 10/11/20 03:51 08:35 11:15 WBC RBC Hgb Hct RDW Lymph % (Auto) [place] % (Auto) Eos % (Auto) Lymph # (Auto) [place] # (Auto) Eos # (Auto) Seg Neutrophils % Lymphocytes % (Manual) Monocytes % (Manual) Seg Neutrophils # Seg Neutrophils # Man Lymphocytes # (Manual) Monocytes # (Manual) D-Dimer Heparin Anti-Xa Level 0.22 L ABG pH 7.491 H POC ABG pCO2 57.6 H POC ABG pO2 ABG pO2 ABG HCO3 ABG O2 Saturation ABG Base Excess ABG Hemoglobin ABG Oxyhemoglobin ABG Sodium 150.0 H ABG Potassium 3.1 L ABG Chloride 96.0 L ABG Glucose 122 H VBG pH Oxyhemoglobin Carboxyhemoglobin Sodium Potassium Chloride Carbon Dioxide BUN Creatinine Glucose POC Glucose 151 H Lactic Acid Calcium Phosphorus Magnesium Total Bilirubin AST ALT Ammonia Lactate Dehydrogenase Total Creatine Kinase CK-MB (CK-2) Troponin T C-Reactive Protein NT-Pro-B Natriuret Pep Total Protein Albumin Triglycerides TSH Arterial Blood Glucose 122 H Arterial Blood Ionized Calcium 3.9 L Urine pH Urine WBC (Auto) Urine Creatinine 10/11/20 10/11/20 10/11/20 13:30 13:30 13:30 WBC 15.0 H RBC Hgb Hct RDW Lymph % (Auto) [place] % (Auto) Eos % (Auto) Lymph # (Auto) [place] # (Auto) Eos # (Auto) Seg Neutrophils % Lymphocytes % (Manual) Monocytes % (Manual) Seg Neutrophils # Seg Neutrophils # Man Lymphocytes # (Manual) Monocytes # (Manual) D-Dimer Heparin Anti-Xa Level ABG pH POC ABG pCO2 POC ABG pO2 ABG pO2 ABG HCO3 ABG O2 Saturation ABG Base Excess ABG Hemoglobin ABG Oxyhemoglobin ABG Sodium ABG Potassium ABG Chloride ABG Glucose VBG pH Oxyhemoglobin Carboxyhemoglobin Sodium Potassium Chloride Carbon Dioxide BUN Creatinine Glucose POC Glucose Lactic Acid Calcium Phosphorus Magnesium Total Bilirubin AST ALT Ammonia Lactate Dehydrogenase Total Creatine Kinase CK-MB (CK-2) Troponin T C-Reactive Protein NT-Pro-B Natriuret Pep Total Protein Albumin Triglycerides TSH Arterial Blood Glucose Arterial Blood Ionized Calcium Urine pH 9.0 H Urine WBC (Auto) 18.0 H Urine Creatinine 80.5 H 10/11/20 10/11/20 10/12/20 17:17 23:14 03:53 WBC RBC Hgb Hct RDW Lymph % (Auto) [place] % (Auto) Eos % (Auto) Lymph # (Auto) [place] # (Auto) Eos # (Auto) Seg Neutrophils % Lymphocytes % (Manual) Monocytes % (Manual) Seg Neutrophils # Seg Neutrophils # Man Lymphocytes # (Manual) Monocytes # (Manual) D-Dimer Heparin Anti-Xa Level ABG pH 7.545 H POC ABG pCO2 54.6 H POC ABG pO2 231.9 H ABG pO2 ABG HCO3 ABG O2 Saturation ABG Base Excess ABG Hemoglobin ABG Oxyhemoglobin 98.5 H ABG Sodium 150.5 H ABG Potassium 3.2 L ABG Chloride 96.0 L ABG Glucose 148 H VBG pH Oxyhemoglobin Carboxyhemoglobin Sodium Potassium Chloride Carbon Dioxide BUN Creatinine Glucose POC Glucose 121 H 135 H Lactic Acid Calcium Phosphorus Magnesium Total Bilirubin AST ALT Ammonia Lactate Dehydrogenase Total Creatine Kinase CK-MB (CK-2) Troponin T C-Reactive Protein NT-Pro-B Natriuret Pep Total Protein Albumin Triglycerides TSH Arterial Blood Glucose 148 H Arterial Blood Ionized Calcium 3.8 L Urine pH Urine WBC (Auto) Urine Creatinine 10/12/20 10/12/20 10/12/20 04:00 05:10 05:12 WBC 14.3 H RBC Hgb 11.6 L Hct 35.2 L RDW Lymph % (Auto) [place] % (Auto) Eos % (Auto) Lymph # (Auto) [place] # (Auto) Eos # (Auto) Seg Neutrophils % Lymphocytes % (Manual) Monocytes % (Manual) Seg Neutrophils # Seg Neutrophils # Man Lymphocytes # (Manual) Monocytes # (Manual) D-Dimer Heparin Anti-Xa Level ABG pH POC ABG pCO2 POC ABG pO2 ABG pO2 ABG HCO3 ABG O2 Saturation ABG Base Excess ABG Hemoglobin ABG Oxyhemoglobin ABG Sodium ABG Potassium ABG Chloride ABG Glucose VBG pH Oxyhemoglobin Carboxyhemoglobin Sodium 155 H Potassium 3.3 L Chloride 97.9 L Carbon Dioxide 47 H* D BUN 50 H Creatinine 3.4 H Glucose 146 H POC Glucose 137 H Lactic Acid Calcium 8.0 L Phosphorus Magnesium Total Bilirubin AST ALT Ammonia Lactate Dehydrogenase Total Creatine Kinase CK-MB (CK-2) Troponin T 0.125 H* D C-Reactive Protein NT-Pro-B Natriuret Pep Total Protein Albumin Triglycerides TSH Arterial Blood Glucose Arterial Blood Ionized Calcium Urine pH Urine WBC (Auto) Urine Creatinine 10/12/20 10/12/20 10/12/20 11:39 16:01 19:49 WBC RBC Hgb Hct RDW Lymph % (Auto) [place] % (Auto) Eos % (Auto) Lymph # (Auto) [place] # (Auto) Eos # (Auto) Seg Neutrophils % Lymphocytes % (Manual) Monocytes % (Manual) Seg Neutrophils # Seg Neutrophils # Man Lymphocytes # (Manual) Monocytes # (Manual) D-Dimer Heparin Anti-Xa Level ABG pH POC ABG pCO2 POC ABG pO2 ABG pO2 ABG HCO3 ABG O2 Saturation ABG Base Excess ABG Hemoglobin ABG Oxyhemoglobin ABG Sodium ABG Potassium ABG Chloride ABG Glucose VBG pH Oxyhemoglobin Carboxyhemoglobin Sodium 157 H Potassium 3.3 L Chloride Carbon Dioxide 47 H* BUN 52 H Creatinine 3.0 H Glucose 137 H POC Glucose 138 H 119 H Lactic Acid Calcium 8.0 L Phosphorus Magnesium Total Bilirubin AST ALT Ammonia Lactate Dehydrogenase Total Creatine Kinase CK-MB (CK-2) Troponin T C-Reactive Protein NT-Pro-B Natriuret Pep Total Protein Albumin Triglycerides TSH Arterial Blood Glucose Arterial Blood Ionized Calcium Urine pH Urine WBC (Auto) Urine Creatinine 10/12/20 10/13/20 10/13/20 23:37 02:28 04:52 WBC RBC Hgb Hct RDW Lymph % (Auto) [place] % (Auto) Eos % (Auto) Lymph # (Auto) [place] # (Auto) Eos # (Auto) Seg Neutrophils % Lymphocytes % (Manual) Monocytes % (Manual) Seg Neutrophils # Seg Neutrophils # Man Lymphocytes # (Manual) Monocytes # (Manual) D-Dimer Heparin Anti-Xa Level ABG pH 7.485 H POC ABG pCO2 57.1 H POC ABG pO2 ABG pO2 ABG HCO3 ABG O2 Saturation ABG Base Excess ABG Hemoglobin ABG Oxyhemoglobin ABG Sodium 152.4 H ABG Potassium ABG Chloride ABG Glucose 129 H VBG pH Oxyhemoglobin Carboxyhemoglobin Sodium 155 H Potassium Chloride Carbon Dioxide 45 H* BUN 52 H Creatinine 2.7 H Glucose 121 H POC Glucose 131 H Lactic Acid Calcium Phosphorus Magnesium 2.40 H Total Bilirubin AST ALT Ammonia Lactate Dehydrogenase Total Creatine Kinase CK-MB (CK-2) Troponin T C-Reactive Protein NT-Pro-B Natriuret Pep Total Protein Albumin Triglycerides 278 H TSH Arterial Blood Glucose 129 H Arterial Blood Ionized Calcium 4.1 L Urine pH Urine WBC (Auto) Urine Creatinine 10/13/20 10/13/20 10/13/20 04:52 05:13 11:37 WBC 14.7 H RBC Hgb 11.7 L Hct RDW 15.8 H Lymph % (Auto) [place] % (Auto) Eos % (Auto) Lymph # (Auto) [place] # (Auto) Eos # (Auto) Seg Neutrophils % Lymphocytes % (Manual) Monocytes % (Manual) Seg Neutrophils # Seg Neutrophils # Man Lymphocytes # (Manual) Monocytes # (Manual) D-Dimer Heparin Anti-Xa Level ABG pH POC ABG pCO2 POC ABG pO2 ABG pO2 ABG HCO3 ABG O2 Saturation ABG Base Excess ABG Hemoglobin ABG Oxyhemoglobin ABG Sodium ABG Potassium ABG Chloride ABG Glucose VBG pH Oxyhemoglobin Carboxyhemoglobin Sodium Potassium Chloride Carbon Dioxide BUN Creatinine Glucose POC Glucose 116 H 116 H Lactic Acid Calcium Phosphorus Magnesium Total Bilirubin AST ALT Ammonia Lactate Dehydrogenase Total Creatine Kinase CK-MB (CK-2) Troponin T C-Reactive Protein NT-Pro-B Natriuret Pep Total Protein Albumin Triglycerides TSH Arterial Blood Glucose Arterial Blood Ionized Calcium Urine pH Urine WBC (Auto) Urine Creatinine 10/13/20 10/14/20 10/14/20 17:50 03:45 04:46 WBC 11.1 H RBC Hgb Hct RDW 15.3 H Lymph % (Auto) [place] % (Auto) Eos % (Auto) Lymph # (Auto) [place] # (Auto) Eos # (Auto) Seg Neutrophils % Lymphocytes % (Manual) Monocytes % (Manual) Seg Neutrophils # Seg Neutrophils # Man Lymphocytes # (Manual) Monocytes # (Manual) D-Dimer Heparin Anti-Xa Level ABG pH POC ABG pCO2 59.6 H POC ABG pO2 ABG pO2 ABG HCO3 ABG O2 Saturation ABG Base Excess ABG Hemoglobin ABG Oxyhemoglobin ABG Sodium 151.4 H ABG Potassium 3.3 L ABG Chloride ABG Glucose 138 H VBG pH Oxyhemoglobin Carboxyhemoglobin 1.6 H Sodium Potassium Chloride Carbon Dioxide BUN Creatinine Glucose POC Glucose 140 H Lactic Acid Calcium Phosphorus Magnesium Total Bilirubin AST ALT Ammonia Lactate Dehydrogenase Total Creatine Kinase CK-MB (CK-2) Troponin T C-Reactive Protein NT-Pro-B Natriuret Pep Total Protein Albumin Triglycerides TSH Arterial Blood Glucose 138 H Arterial Blood Ionized Calcium 4.5 L Urine pH Urine WBC (Auto) Urine Creatinine 10/14/20 10/14/20 10/14/20 04:46 05:10 11:11 WBC RBC Hgb Hct RDW Lymph % (Auto) [place] % (Auto) Eos % (Auto) Lymph # (Auto) [place] # (Auto) Eos # (Auto) Seg Neutrophils % Lymphocytes % (Manual) Monocytes % (Manual) Seg Neutrophils # Seg Neutrophils # Man Lymphocytes # (Manual) Monocytes # (Manual) D-Dimer Heparin Anti-Xa Level ABG pH POC ABG pCO2 POC ABG pO2 ABG pO2 ABG HCO3 ABG O2 Saturation ABG Base Excess ABG Hemoglobin ABG Oxyhemoglobin ABG Sodium ABG Potassium ABG Chloride ABG Glucose VBG pH Oxyhemoglobin Carboxyhemoglobin Sodium 152 H Potassium 3.5 L Chloride Carbon Dioxide 38 H D BUN 46 H Creatinine 2.3 H Glucose 127 H POC Glucose 116 H 114 H Lactic Acid Calcium Phosphorus Magnesium Total Bilirubin AST ALT Ammonia Lactate Dehydrogenase Total Creatine Kinase CK-MB (CK-2) Troponin T C-Reactive Protein NT-Pro-B Natriuret Pep Total Protein Albumin Triglycerides TSH Arterial Blood Glucose Arterial Blood Ionized Calcium Urine pH Urine WBC (Auto) Urine Creatinine 10/14/20 10/14/20 10/15/20 18:53 23:23 04:12 WBC RBC Hgb Hct RDW Lymph % (Auto) [place] % (Auto) Eos % (Auto) Lymph # (Auto) [place] # (Auto) Eos # (Auto) Seg Neutrophils % Lymphocytes % (Manual) Monocytes % (Manual) Seg Neutrophils # Seg Neutrophils # Man Lymphocytes # (Manual) Monocytes # (Manual) D-Dimer Heparin Anti-Xa Level ABG pH POC ABG pCO2 POC ABG pO2 ABG pO2 ABG HCO3 ABG O2 Saturation ABG Base Excess ABG Hemoglobin ABG Oxyhemoglobin ABG Sodium ABG Potassium ABG Chloride ABG Glucose VBG pH Oxyhemoglobin Carboxyhemoglobin Sodium 149 H Potassium 3.2 L Chloride Carbon Dioxide 37 H BUN 40 H Creatinine 2.0 H Glucose 124 H POC Glucose 128 H 113 H Lactic Acid Calcium Phosphorus Magnesium Total Bilirubin AST ALT Ammonia Lactate Dehydrogenase Total Creatine Kinase CK-MB (CK-2) Troponin T C-Reactive Protein NT-Pro-B Natriuret Pep Total Protein Albumin Triglycerides TSH Arterial Blood Glucose Arterial Blood Ionized Calcium Urine pH Urine WBC (Auto) Urine Creatinine 10/15/20 10/15/20 10/15/20 04:22 11:39 17:36 WBC RBC Hgb Hct RDW Lymph % (Auto) [place] % (Auto) Eos % (Auto) Lymph # (Auto) [place] # (Auto) Eos # (Auto) Seg Neutrophils % Lymphocytes % (Manual) Monocytes % (Manual) Seg Neutrophils # Seg Neutrophils # Man Lymphocytes # (Manual) Monocytes # (Manual) D-Dimer Heparin Anti-Xa Level ABG pH POC ABG pCO2 POC ABG pO2 ABG pO2 115.0 H ABG HCO3 38.1 H ABG O2 Saturation ABG Base Excess 11.3 H ABG Hemoglobin 11.0 L ABG Oxyhemoglobin ABG Sodium ABG Potassium ABG Chloride ABG Glucose VBG pH Oxyhemoglobin Carboxyhemoglobin Sodium Potassium Chloride Carbon Dioxide BUN Creatinine Glucose POC Glucose 123 H 118 H Lactic Acid Calcium Phosphorus Magnesium Total Bilirubin AST ALT Ammonia Lactate Dehydrogenase Total Creatine Kinase CK-MB (CK-2) Troponin T C-Reactive Protein NT-Pro-B Natriuret Pep Total Protein Albumin Triglycerides TSH Arterial Blood Glucose Arterial Blood Ionized Calcium Urine pH Urine WBC (Auto) Urine Creatinine 10/15/20 10/16/20 10/16/20 23:18 03:13 05:10 WBC RBC Hgb Hct RDW Lymph % (Auto) [place] % (Auto) Eos % (Auto) Lymph # (Auto) [place] # (Auto) Eos # (Auto) Seg Neutrophils % Lymphocytes % (Manual) Monocytes % (Manual) Seg Neutrophils # Seg Neutrophils # Man Lymphocytes # (Manual) Monocytes # (Manual) D-Dimer Heparin Anti-Xa Level ABG pH POC ABG pCO2 POC ABG pO2 ABG pO2 104.5 H ABG HCO3 35.1 H ABG O2 Saturation ABG Base Excess 9.5 H ABG Hemoglobin 7.9 L ABG Oxyhemoglobin ABG Sodium ABG Potassium ABG Chloride ABG Glucose VBG pH Oxyhemoglobin Carboxyhemoglobin Sodium Potassium 3.3 L Chloride Carbon Dioxide 33 H BUN 37 H Creatinine 1.4 H Glucose 148 H POC Glucose 135 H Lactic Acid Calcium Phosphorus Magnesium 2.40 H Total Bilirubin AST ALT Ammonia Lactate Dehydrogenase Total Creatine Kinase CK-MB (CK-2) Troponin T C-Reactive Protein NT-Pro-B Natriuret Pep Total Protein Albumin Triglycerides TSH Arterial Blood Glucose Arterial Blood Ionized Calcium Urine pH Urine WBC (Auto) Urine Creatinine 10/16/20 10/16/20 10/16/20 06:36 11:08 17:07 WBC RBC Hgb Hct RDW Lymph % (Auto) [place] % (Auto) Eos % (Auto) Lymph # (Auto) [place] # (Auto) Eos # (Auto) Seg Neutrophils % Lymphocytes % (Manual) Monocytes % (Manual) Seg Neutrophils # Seg Neutrophils # Man Lymphocytes # (Manual) Monocytes # (Manual) D-Dimer Heparin Anti-Xa Level ABG pH POC ABG pCO2 POC ABG pO2 ABG pO2 ABG HCO3 ABG O2 Saturation ABG Base Excess ABG Hemoglobin ABG Oxyhemoglobin ABG Sodium ABG Potassium ABG Chloride ABG Glucose VBG pH Oxyhemoglobin Carboxyhemoglobin Sodium Potassium Chloride Carbon Dioxide BUN Creatinine Glucose POC Glucose 150 H 111 H 132 H Lactic Acid Calcium Phosphorus Magnesium Total Bilirubin AST ALT Ammonia Lactate Dehydrogenase Total Creatine Kinase CK-MB (CK-2) Troponin T C-Reactive Protein NT-Pro-B Natriuret Pep Total Protein Albumin Triglycerides TSH Arterial Blood Glucose Arterial Blood Ionized Calcium Urine pH Urine WBC (Auto) Urine Creatinine 10/16/20 10/17/20 10/17/20 23:38 03:32 03:32 WBC RBC Hgb Hct RDW Lymph % (Auto) [place] % (Auto) Eos % (Auto) Lymph # (Auto) [place] # (Auto) Eos # (Auto) Seg Neutrophils % Lymphocytes % (Manual) Monocytes % (Manual) Seg Neutrophils # Seg Neutrophils # Man Lymphocytes # (Manual) Monocytes # (Manual) D-Dimer Heparin Anti-Xa Level ABG pH POC ABG pCO2 POC ABG pO2 ABG pO2 ABG HCO3 ABG O2 Saturation ABG Base Excess ABG Hemoglobin ABG Oxyhemoglobin ABG Sodium ABG Potassium ABG Chloride ABG Glucose VBG pH Oxyhemoglobin Carboxyhemoglobin Sodium 146 H Potassium Chloride Carbon Dioxide 32 H BUN 57 H Creatinine 2.4 H D Glucose 124 H POC Glucose 117 H Lactic Acid Calcium Phosphorus 5.20 H D Magnesium Total Bilirubin AST ALT Ammonia Lactate Dehydrogenase Total Creatine Kinase CK-MB (CK-2) Troponin T C-Reactive Protein NT-Pro-B Natriuret Pep Total Protein Albumin Triglycerides TSH Arterial Blood Glucose Arterial Blood Ionized Calcium Urine pH Urine WBC (Auto) Urine Creatinine 10/17/20 10/17/20 10/18/20 05:10 17:33 00:13 WBC RBC Hgb Hct RDW Lymph % (Auto) [place] % (Auto) Eos % (Auto) Lymph # (Auto) [place] # (Auto) Eos # (Auto) Seg Neutrophils % Lymphocytes % (Manual) Monocytes % (Manual) Seg Neutrophils # Seg Neutrophils # Man Lymphocytes # (Manual) Monocytes # (Manual) D-Dimer Heparin Anti-Xa Level ABG pH POC ABG pCO2 POC ABG pO2 ABG pO2 ABG HCO3 ABG O2 Saturation ABG Base Excess ABG Hemoglobin ABG Oxyhemoglobin ABG Sodium ABG Potassium ABG Chloride ABG Glucose VBG pH Oxyhemoglobin Carboxyhemoglobin Sodium Potassium Chloride Carbon Dioxide BUN Creatinine Glucose POC Glucose 122 H 121 H 23 L Lactic Acid Calcium Phosphorus Magnesium Total Bilirubin AST ALT Ammonia Lactate Dehydrogenase Total Creatine Kinase CK-MB (CK-2) Troponin T C-Reactive Protein NT-Pro-B Natriuret Pep Total Protein Albumin Triglycerides TSH Arterial Blood Glucose Arterial Blood Ionized Calcium Urine pH Urine WBC (Auto) Urine Creatinine 10/18/20 10/18/20 10/18/20 00:16 03:27 03:27 WBC RBC Hgb 11.7 L Hct RDW Lymph % (Auto) [place] % (Auto) Eos % (Auto) Lymph # (Auto) [place] # (Auto) Eos # (Auto) Seg Neutrophils % Lymphocytes % (Manual) Monocytes % (Manual) Seg Neutrophils # Seg Neutrophils # Man Lymphocytes # (Manual) Monocytes # (Manual) D-Dimer Heparin Anti-Xa Level ABG pH POC ABG pCO2 POC ABG pO2 ABG pO2 ABG HCO3 ABG O2 Saturation ABG Base Excess ABG Hemoglobin ABG Oxyhemoglobin ABG Sodium ABG Potassium ABG Chloride ABG Glucose VBG pH Oxyhemoglobin Carboxyhemoglobin Sodium Potassium Chloride 97.6 L Carbon Dioxide BUN 90 H Creatinine 3.3 H Glucose 146 H POC Glucose 134 H Lactic Acid Calcium Phosphorus Magnesium Total Bilirubin 1.70 H AST ALT Ammonia Lactate Dehydrogenase Total Creatine Kinase CK-MB (CK-2) Troponin T C-Reactive Protein NT-Pro-B Natriuret Pep Total Protein Albumin 3.1 L Triglycerides TSH Arterial Blood Glucose Arterial Blood Ionized Calcium Urine pH Urine WBC (Auto) Urine Creatinine 10/18/20 10/18/20 10/18/20 05:09 11:19 17:15 WBC RBC Hgb Hct RDW Lymph % (Auto) [place] % (Auto) Eos % (Auto) Lymph # (Auto) [place] # (Auto) Eos # (Auto) Seg Neutrophils % Lymphocytes % (Manual) Monocytes % (Manual) Seg Neutrophils # Seg Neutrophils # Man Lymphocytes # (Manual) Monocytes # (Manual) D-Dimer Heparin Anti-Xa Level ABG pH POC ABG pCO2 POC ABG pO2 ABG pO2 ABG HCO3 ABG O2 Saturation ABG Base Excess ABG Hemoglobin ABG Oxyhemoglobin ABG Sodium ABG Potassium ABG Chloride ABG Glucose VBG pH Oxyhemoglobin Carboxyhemoglobin Sodium Potassium Chloride Carbon Dioxide BUN Creatinine Glucose POC Glucose 144 H 145 H 151 H Lactic Acid Calcium Phosphorus Magnesium Total Bilirubin AST ALT Ammonia Lactate Dehydrogenase Total Creatine Kinase CK-MB (CK-2) Troponin T C-Reactive Protein NT-Pro-B Natriuret Pep Total Protein Albumin Triglycerides TSH Arterial Blood Glucose Arterial Blood Ionized Calcium Urine pH Urine WBC (Auto) Urine Creatinine 10/18/20 10/18/20 10/19/20 23:16 Unknown 04:55 WBC RBC Hgb Hct RDW Lymph % (Auto) [place] % (Auto) Eos % (Auto) Lymph # (Auto) [place] # (Auto) Eos # (Auto) Seg Neutrophils % Lymphocytes % (Manual) Monocytes % (Manual) Seg Neutrophils # Seg Neutrophils # Man Lymphocytes # (Manual) Monocytes # (Manual) D-Dimer Heparin Anti-Xa Level ABG pH POC ABG pCO2 POC ABG pO2 ABG pO2 ABG HCO3 ABG O2 Saturation ABG Base Excess ABG Hemoglobin ABG Oxyhemoglobin ABG Sodium ABG Potassium ABG Chloride ABG Glucose VBG pH Oxyhemoglobin Carboxyhemoglobin Sodium Potassium Chloride Carbon Dioxide BUN 104 H Creatinine 3.1 H Glucose 139 H POC Glucose 123 H Lactic Acid Calcium Phosphorus Magnesium Total Bilirubin AST ALT Ammonia Lactate Dehydrogenase Total Creatine Kinase CK-MB (CK-2) Troponin T C-Reactive Protein NT-Pro-B Natriuret Pep Total Protein Albumin Triglycerides TSH Arterial Blood Glucose Arterial Blood Ionized Calcium Urine pH Urine WBC (Auto) 115.0 H Urine Creatinine 10/19/20 10/19/20 10/19/20 04:55 11:35 13:14 WBC 15.1 H RBC Hgb 11.1 L Hct 34.4 L RDW Lymph % (Auto) 4.2 L [place] % (Auto) 11.9 H Eos % (Auto) Lymph # (Auto) 0.6 L [place] # (Auto) 1.8 H Eos # (Auto) Seg Neutrophils % 82.0 H Lymphocytes % (Manual) Monocytes % (Manual) Seg Neutrophils # 12.4 H Seg Neutrophils # Man Lymphocytes # (Manual) Monocytes # (Manual) D-Dimer Heparin Anti-Xa Level ABG pH POC ABG pCO2 POC ABG pO2 ABG pO2 ABG HCO3 ABG O2 Saturation ABG Base Excess ABG Hemoglobin ABG Oxyhemoglobin ABG Sodium ABG Potassium ABG Chloride ABG Glucose VBG pH Oxyhemoglobin Carboxyhemoglobin Sodium Potassium Chloride Carbon Dioxide BUN Creatinine Glucose POC Glucose 136 H Lactic Acid Calcium Phosphorus Magnesium Total Bilirubin AST ALT Ammonia Lactate Dehydrogenase Total Creatine Kinase CK-MB (CK-2) Troponin T C-Reactive Protein NT-Pro-B Natriuret Pep Total Protein Albumin Triglycerides TSH Arterial Blood Glucose Arterial Blood Ionized Calcium Urine pH Urine WBC (Auto) Urine Creatinine 93.7 H 10/19/20 10/19/20 10/20/20 17:53 23:39 04:30 WBC RBC Hgb Hct RDW Lymph % (Auto) [place] % (Auto) Eos % (Auto) Lymph # (Auto) [place] # (Auto) Eos # (Auto) Seg Neutrophils % Lymphocytes % (Manual) Monocytes % (Manual) Seg Neutrophils # Seg Neutrophils # Man Lymphocytes # (Manual) Monocytes # (Manual) D-Dimer Heparin Anti-Xa Level ABG pH POC ABG pCO2 POC ABG pO2 ABG pO2 ABG HCO3 ABG O2 Saturation ABG Base Excess ABG Hemoglobin ABG Oxyhemoglobin ABG Sodium ABG Potassium ABG Chloride ABG Glucose VBG pH Oxyhemoglobin Carboxyhemoglobin Sodium Potassium Chloride Carbon Dioxide BUN 104 H Creatinine 2.8 H Glucose 151 H POC Glucose 137 H 133 H Lactic Acid Calcium Phosphorus Magnesium Total Bilirubin AST ALT Ammonia Lactate Dehydrogenase Total Creatine Kinase CK-MB (CK-2) Troponin T C-Reactive Protein NT-Pro-B Natriuret Pep Total Protein Albumin Triglycerides TSH Arterial Blood Glucose Arterial Blood Ionized Calcium Urine pH Urine WBC (Auto) Urine Creatinine 10/20/20 10/20/20 10/20/20 04:30 05:38 11:34 WBC 17.9 H RBC Hgb 11.7 L Hct RDW Lymph % (Auto) [place] % (Auto) Eos % (Auto) Lymph # (Auto) [place] # (Auto) Eos # (Auto) Seg Neutrophils % Lymphocytes % (Manual) Monocytes % (Manual) Seg Neutrophils # Seg Neutrophils # Man Lymphocytes # (Manual) Monocytes # (Manual) D-Dimer Heparin Anti-Xa Level ABG pH POC ABG pCO2 POC ABG pO2 ABG pO2 ABG HCO3 ABG O2 Saturation ABG Base Excess ABG Hemoglobin ABG Oxyhemoglobin ABG Sodium ABG Potassium ABG Chloride ABG Glucose VBG pH Oxyhemoglobin Carboxyhemoglobin Sodium Potassium Chloride Carbon Dioxide BUN Creatinine Glucose POC Glucose 164 H 148 H Lactic Acid Calcium Phosphorus Magnesium Total Bilirubin AST ALT Ammonia Lactate Dehydrogenase Total Creatine Kinase CK-MB (CK-2) Troponin T C-Reactive Protein NT-Pro-B Natriuret Pep Total Protein Albumin Triglycerides TSH Arterial Blood Glucose Arterial Blood Ionized Calcium Urine pH Urine WBC (Auto) Urine Creatinine 10/20/20 10/20/20 10/20/20 17:40 20:20 23:29 WBC RBC Hgb Hct RDW Lymph % (Auto) [place] % (Auto) Eos % (Auto) Lymph # (Auto) [place] # (Auto) Eos # (Auto) Seg Neutrophils % Lymphocytes % (Manual) Monocytes % (Manual) Seg Neutrophils # Seg Neutrophils # Man Lymphocytes # (Manual) Monocytes # (Manual) D-Dimer Heparin Anti-Xa Level ABG pH 7.292 L POC ABG pCO2 68.5 H POC ABG pO2 ABG pO2 ABG HCO3 ABG O2 Saturation ABG Base Excess ABG Hemoglobin 11.6 L ABG Oxyhemoglobin ABG Sodium ABG Potassium ABG Chloride ABG Glucose 145 H VBG pH Oxyhemoglobin Carboxyhemoglobin Sodium Potassium Chloride Carbon Dioxide BUN Creatinine Glucose POC Glucose 130 H 136 H Lactic Acid Calcium Phosphorus Magnesium Total Bilirubin AST ALT Ammonia Lactate Dehydrogenase Total Creatine Kinase CK-MB (CK-2) Troponin T C-Reactive Protein NT-Pro-B Natriuret Pep Total Protein Albumin Triglycerides TSH Arterial Blood Glucose 145 H Arterial Blood Ionized Calcium Urine pH Urine WBC (Auto) Urine Creatinine 10/21/20 10/21/20 10/21/20 04:20 06:26 06:30 WBC RBC Hgb Hct RDW Lymph % (Auto) [place] % (Auto) Eos % (Auto) Lymph # (Auto) [place] # (Auto) Eos # (Auto) Seg Neutrophils % Lymphocytes % (Manual) Monocytes % (Manual) Seg Neutrophils # Seg Neutrophils # Man Lymphocytes # (Manual) Monocytes # (Manual) D-Dimer Heparin Anti-Xa Level ABG pH 7.262 L POC ABG pCO2 72.4 H POC ABG pO2 81.6 L ABG pO2 ABG HCO3 ABG O2 Saturation ABG Base Excess ABG Hemoglobin 11.6 L ABG Oxyhemoglobin ABG Sodium ABG Potassium ABG Chloride ABG Glucose 140 H VBG pH Oxyhemoglobin Carboxyhemoglobin Sodium Potassium Chloride Carbon Dioxide 33 H BUN 104 H Creatinine 2.9 H Glucose 153 H POC Glucose 128 H Lactic Acid Calcium Phosphorus Magnesium Total Bilirubin AST ALT Ammonia Lactate Dehydrogenase Total Creatine Kinase CK-MB (CK-2) Troponin T C-Reactive Protein NT-Pro-B Natriuret Pep Total Protein Albumin Triglycerides TSH Arterial Blood Glucose 140 H Arterial Blood Ionized Calcium Urine pH Urine WBC (Auto) Urine Creatinine 10/21/20 10/21/20 10/21/20 06:30 11:24 17:21 WBC 13.3 H RBC Hgb 10.7 L Hct 32.7 L RDW Lymph % (Auto) [place] % (Auto) Eos % (Auto) Lymph # (Auto) [place] # (Auto) Eos # (Auto) Seg Neutrophils % Lymphocytes % (Manual) Monocytes % (Manual) Seg Neutrophils # Seg Neutrophils # Man Lymphocytes # (Manual) Monocytes # (Manual) D-Dimer Heparin Anti-Xa Level ABG pH POC ABG pCO2 POC ABG pO2 ABG pO2 ABG HCO3 ABG O2 Saturation ABG Base Excess ABG Hemoglobin ABG Oxyhemoglobin ABG Sodium ABG Potassium ABG Chloride ABG Glucose VBG pH Oxyhemoglobin Carboxyhemoglobin Sodium Potassium Chloride Carbon Dioxide BUN Creatinine Glucose POC Glucose 178 H 138 H Lactic Acid Calcium Phosphorus Magnesium Total Bilirubin AST ALT Ammonia Lactate Dehydrogenase Total Creatine Kinase CK-MB (CK-2) Troponin T C-Reactive Protein NT-Pro-B Natriuret Pep Total Protein Albumin Triglycerides TSH Arterial Blood Glucose Arterial Blood Ionized Calcium Urine pH Urine WBC (Auto) Urine Creatinine 10/22/20 10/22/20 10/22/20 00:05 04:30 06:15 WBC RBC Hgb Hct RDW Lymph % (Auto) [place] % (Auto) Eos % (Auto) Lymph # (Auto) [place] # (Auto) Eos # (Auto) Seg Neutrophils % Lymphocytes % (Manual) Monocytes % (Manual) Seg Neutrophils # Seg Neutrophils # Man Lymphocytes # (Manual) Monocytes # (Manual) D-Dimer Heparin Anti-Xa Level ABG pH 7.225 L POC ABG pCO2 76.6 H POC ABG pO2 ABG pO2 ABG HCO3 ABG O2 Saturation ABG Base Excess ABG Hemoglobin 11.1 L ABG Oxyhemoglobin ABG Sodium ABG Potassium ABG Chloride ABG Glucose 151 H VBG pH Oxyhemoglobin Carboxyhemoglobin Sodium Potassium Chloride Carbon Dioxide 32 H BUN 103 H Creatinine 2.7 H Glucose 151 H POC Glucose 135 H Lactic Acid Calcium Phosphorus Magnesium Total Bilirubin AST ALT Ammonia Lactate Dehydrogenase Total Creatine Kinase CK-MB (CK-2) Troponin T C-Reactive Protein NT-Pro-B Natriuret Pep Total Protein Albumin Triglycerides TSH Arterial Blood Glucose 151 H Arterial Blood Ionized Calcium Urine pH Urine WBC (Auto) Urine Creatinine 10/22/20 10/22/20 10/22/20 06:18 11:34 11:44 WBC RBC Hgb Hct RDW Lymph % (Auto) [place] % (Auto) Eos % (Auto) Lymph # (Auto) [place] # (Auto) Eos # (Auto) Seg Neutrophils % Lymphocytes % (Manual) Monocytes % (Manual) Seg Neutrophils # Seg Neutrophils # Man Lymphocytes # (Manual) Monocytes # (Manual) D-Dimer Heparin Anti-Xa Level ABG pH 7.278 L POC ABG pCO2 67.8 H POC ABG pO2 ABG pO2 ABG HCO3 ABG O2 Saturation ABG Base Excess ABG Hemoglobin 10.2 L ABG Oxyhemoglobin ABG Sodium ABG Potassium ABG Chloride ABG Glucose 172 H VBG pH Oxyhemoglobin Carboxyhemoglobin Sodium Potassium Chloride Carbon Dioxide BUN Creatinine Glucose POC Glucose 137 H 147 H Lactic Acid Calcium Phosphorus Magnesium Total Bilirubin AST ALT Ammonia Lactate Dehydrogenase Total Creatine Kinase CK-MB (CK-2) Troponin T C-Reactive Protein NT-Pro-B Natriuret Pep Total Protein Albumin Triglycerides TSH Arterial Blood Glucose 172 H Arterial Blood Ionized Calcium Urine pH Urine WBC (Auto) Urine Creatinine 10/22/20 10/22/20 10/23/20 17:40 23:55 05:11 WBC RBC Hgb Hct RDW Lymph % (Auto) [place] % (Auto) Eos % (Auto) Lymph # (Auto) [place] # (Auto) Eos # (Auto) Seg Neutrophils % Lymphocytes % (Manual) Monocytes % (Manual) Seg Neutrophils # Seg Neutrophils # Man Lymphocytes # (Manual) Monocytes # (Manual) D-Dimer Heparin Anti-Xa Level ABG pH POC ABG pCO2 63.6 H POC ABG pO2 81.2 L ABG pO2 ABG HCO3 ABG O2 Saturation ABG Base Excess ABG Hemoglobin 10.6 L ABG Oxyhemoglobin ABG Sodium ABG Potassium ABG Chloride 109.0 H ABG Glucose 149 H VBG pH Oxyhemoglobin Carboxyhemoglobin Sodium Potassium Chloride Carbon Dioxide BUN Creatinine Glucose POC Glucose 141 H 139 H Lactic Acid Calcium Phosphorus Magnesium Total Bilirubin AST ALT Ammonia Lactate Dehydrogenase Total Creatine Kinase CK-MB (CK-2) Troponin T C-Reactive Protein NT-Pro-B Natriuret Pep Total Protein Albumin Triglycerides TSH Arterial Blood Glucose 149 H Arterial Blood Ionized Calcium Urine pH Urine WBC (Auto) Urine Creatinine 10/23/20 10/23/20 10/23/20 05:39 06:00 11:32 WBC RBC Hgb Hct RDW Lymph % (Auto) [place] % (Auto) Eos % (Auto) Lymph # (Auto) [place] # (Auto) Eos # (Auto) Seg Neutrophils % Lymphocytes % (Manual) Monocytes % (Manual) Seg Neutrophils # Seg Neutrophils # Man Lymphocytes # (Manual) Monocytes # (Manual) D-Dimer Heparin Anti-Xa Level ABG pH POC ABG pCO2 POC ABG pO2 ABG pO2 ABG HCO3 ABG O2 Saturation ABG Base Excess ABG Hemoglobin ABG Oxyhemoglobin ABG Sodium ABG Potassium ABG Chloride ABG Glucose VBG pH Oxyhemoglobin Carboxyhemoglobin Sodium 146 H Potassium Chloride Carbon Dioxide 35 H BUN 92 H Creatinine 2.0 H Glucose 144 H POC Glucose 139 H 176 H Lactic Acid Calcium Phosphorus Magnesium Total Bilirubin AST ALT Ammonia Lactate Dehydrogenase Total Creatine Kinase CK-MB (CK-2) Troponin T C-Reactive Protein NT-Pro-B Natriuret Pep Total Protein Albumin Triglycerides TSH Arterial Blood Glucose Arterial Blood Ionized Calcium Urine pH Urine WBC (Auto) Urine Creatinine 10/23/20 10/23/20 10/24/20 11:34 17:55 05:33 WBC RBC Hgb Hct RDW Lymph % (Auto) [place] % (Auto) Eos % (Auto) Lymph # (Auto) [place] # (Auto) Eos # (Auto) Seg Neutrophils % Lymphocytes % (Manual) Monocytes % (Manual) Seg Neutrophils # Seg Neutrophils # Man Lymphocytes # (Manual) Monocytes # (Manual) D-Dimer Heparin Anti-Xa Level ABG pH POC ABG pCO2 POC ABG pO2 ABG pO2 ABG HCO3 ABG O2 Saturation ABG Base Excess ABG Hemoglobin ABG Oxyhemoglobin ABG Sodium ABG Potassium ABG Chloride ABG Glucose VBG pH Oxyhemoglobin Carboxyhemoglobin Sodium 147 H Potassium Chloride Carbon Dioxide 32 H BUN 76 H Creatinine 1.7 H Glucose 172 H POC Glucose 173 H 135 H Lactic Acid Calcium Phosphorus Magnesium Total Bilirubin AST ALT Ammonia Lactate Dehydrogenase Total Creatine Kinase CK-MB (CK-2) Troponin T C-Reactive Protein NT-Pro-B Natriuret Pep Total Protein Albumin Triglycerides TSH Arterial Blood Glucose Arterial Blood Ionized Calcium Urine pH Urine WBC (Auto) Urine Creatinine 10/24/20 10/24/20 10/24/20 05:41 12:09 18:09 WBC RBC Hgb Hct RDW Lymph % (Auto) [place] % (Auto) Eos % (Auto) Lymph # (Auto) [place] # (Auto) Eos # (Auto) Seg Neutrophils % Lymphocytes % (Manual) Monocytes % (Manual) Seg Neutrophils # Seg Neutrophils # Man Lymphocytes # (Manual) Monocytes # (Manual) D-Dimer Heparin Anti-Xa Level ABG pH POC ABG pCO2 POC ABG pO2 ABG pO2 ABG HCO3 ABG O2 Saturation ABG Base Excess ABG Hemoglobin ABG Oxyhemoglobin ABG Sodium ABG Potassium ABG Chloride ABG Glucose VBG pH Oxyhemoglobin Carboxyhemoglobin Sodium Potassium Chloride Carbon Dioxide BUN Creatinine Glucose POC Glucose 156 H 154 H 132 H Lactic Acid Calcium Phosphorus Magnesium Total Bilirubin AST ALT Ammonia Lactate Dehydrogenase Total Creatine Kinase CK-MB (CK-2) Troponin T C-Reactive Protein NT-Pro-B Natriuret Pep Total Protein Albumin Triglycerides TSH Arterial Blood Glucose Arterial Blood Ionized Calcium Urine pH Urine WBC (Auto) Urine Creatinine 10/24/20 10/25/20 10/25/20 23:39 05:29 08:55 WBC RBC Hgb Hct RDW Lymph % (Auto) [place] % (Auto) Eos % (Auto) Lymph # (Auto) [place] # (Auto) Eos # (Auto) Seg Neutrophils % Lymphocytes % (Manual) Monocytes % (Manual) Seg Neutrophils # Seg Neutrophils # Man Lymphocytes # (Manual) Monocytes # (Manual) D-Dimer Heparin Anti-Xa Level ABG pH POC ABG pCO2 POC ABG pO2 ABG pO2 ABG HCO3 ABG O2 Saturation ABG Base Excess ABG Hemoglobin ABG Oxyhemoglobin ABG Sodium ABG Potassium ABG Chloride ABG Glucose VBG pH Oxyhemoglobin Carboxyhemoglobin Sodium 150 H Potassium Chloride 108.3 H Carbon Dioxide 32 H BUN 57 H Creatinine 1.5 H Glucose 142 H POC Glucose 131 H 142 H Lactic Acid Calcium Phosphorus Magnesium Total Bilirubin AST ALT Ammonia Lactate Dehydrogenase Total Creatine Kinase CK-MB (CK-2) Troponin T C-Reactive Protein NT-Pro-B Natriuret Pep Total Protein Albumin Triglycerides TSH Arterial Blood Glucose Arterial Blood Ionized Calcium Urine pH Urine WBC (Auto) Urine Creatinine 10/25/20 10/25/20 10/25/20 08:55 11:08 18:10 WBC 14.3 H RBC 3.57 L Hgb 10.3 L Hct 31.6 L RDW Lymph % (Auto) [place] % (Auto) Eos % (Auto) Lymph # (Auto) [place] # (Auto) Eos # (Auto) Seg Neutrophils % Lymphocytes % (Manual) Monocytes % (Manual) Seg Neutrophils # Seg Neutrophils # Man Lymphocytes # (Manual) Monocytes # (Manual) D-Dimer Heparin Anti-Xa Level ABG pH POC ABG pCO2 52.3 H POC ABG pO2 ABG pO2 ABG HCO3 ABG O2 Saturation ABG Base Excess ABG Hemoglobin 11.2 L ABG Oxyhemoglobin ABG Sodium ABG Potassium ABG Chloride 108.0 H ABG Glucose 167 H VBG pH Oxyhemoglobin Carboxyhemoglobin Sodium Potassium Chloride Carbon Dioxide BUN Creatinine Glucose POC Glucose 157 H Lactic Acid Calcium Phosphorus Magnesium Total Bilirubin AST ALT Ammonia Lactate Dehydrogenase Total Creatine Kinase CK-MB (CK-2) Troponin T C-Reactive Protein NT-Pro-B Natriuret Pep Total Protein Albumin Triglycerides TSH Arterial Blood Glucose 167 H Arterial Blood Ionized Calcium Urine pH Urine WBC (Auto) Urine Creatinine 10/25/20 10/26/20 10/26/20 18:20 00:20 06:08 WBC RBC Hgb Hct RDW Lymph % (Auto) [place] % (Auto) Eos % (Auto) Lymph # (Auto) [place] # (Auto) Eos # (Auto) Seg Neutrophils % Lymphocytes % (Manual) Monocytes % (Manual) Seg Neutrophils # Seg Neutrophils # Man Lymphocytes # (Manual) Monocytes # (Manual) D-Dimer Heparin Anti-Xa Level ABG pH POC ABG pCO2 POC ABG pO2 ABG pO2 ABG HCO3 ABG O2 Saturation ABG Base Excess ABG Hemoglobin ABG Oxyhemoglobin ABG Sodium ABG Potassium ABG Chloride ABG Glucose VBG pH Oxyhemoglobin Carboxyhemoglobin Sodium Potassium Chloride Carbon Dioxide BUN Creatinine Glucose POC Glucose 127 H 108 H 119 H Lactic Acid Calcium Phosphorus Magnesium Total Bilirubin AST ALT Ammonia Lactate Dehydrogenase Total Creatine Kinase CK-MB (CK-2) Troponin T C-Reactive Protein NT-Pro-B Natriuret Pep Total Protein Albumin Triglycerides TSH Arterial Blood Glucose Arterial Blood Ionized Calcium Urine pH Urine WBC (Auto) Urine Creatinine 10/26/20 10/26/20 10/26/20 07:38 07:38 11:28 WBC 13.5 H RBC 3.37 L Hgb 9.8 L Hct 30.0 L RDW Lymph % (Auto) [place] % (Auto) Eos % (Auto) Lymph # (Auto) [place] # (Auto) Eos # (Auto) Seg Neutrophils % Lymphocytes % (Manual) Monocytes % (Manual) Seg Neutrophils # Seg Neutrophils # Man Lymphocytes # (Manual) Monocytes # (Manual) D-Dimer Heparin Anti-Xa Level ABG pH POC ABG pCO2 POC ABG pO2 ABG pO2 ABG HCO3 ABG O2 Saturation ABG Base Excess ABG Hemoglobin ABG Oxyhemoglobin ABG Sodium ABG Potassium ABG Chloride ABG Glucose VBG pH Oxyhemoglobin Carboxyhemoglobin Sodium 149 H Potassium Chloride 107.6 H Carbon Dioxide 34 H BUN 49 H Creatinine 1.4 H Glucose 137 H POC Glucose 148 H Lactic Acid Calcium Phosphorus Magnesium Total Bilirubin AST ALT Ammonia Lactate Dehydrogenase Total Creatine Kinase CK-MB (CK-2) Troponin T C-Reactive Protein NT-Pro-B Natriuret Pep Total Protein Albumin Triglycerides TSH Arterial Blood Glucose Arterial Blood Ionized Calcium Urine pH Urine WBC (Auto) Urine Creatinine 10/26/20 10/26/20 10/27/20 18:17 23:37 05:08 WBC RBC Hgb Hct RDW Lymph % (Auto) [place] % (Auto) Eos % (Auto) Lymph # (Auto) [place] # (Auto) Eos # (Auto) Seg Neutrophils % Lymphocytes % (Manual) Monocytes % (Manual) Seg Neutrophils # Seg Neutrophils # Man Lymphocytes # (Manual) Monocytes # (Manual) D-Dimer Heparin Anti-Xa Level ABG pH POC ABG pCO2 POC ABG pO2 ABG pO2 ABG HCO3 ABG O2 Saturation ABG Base Excess ABG Hemoglobin ABG Oxyhemoglobin ABG Sodium ABG Potassium ABG Chloride ABG Glucose VBG pH Oxyhemoglobin Carboxyhemoglobin Sodium Potassium Chloride Carbon Dioxide BUN Creatinine Glucose POC Glucose 121 H 152 H 120 H Lactic Acid Calcium Phosphorus Magnesium Total Bilirubin AST ALT Ammonia Lactate Dehydrogenase Total Creatine Kinase CK-MB (CK-2) Troponin T C-Reactive Protein NT-Pro-B Natriuret Pep Total Protein Albumin Triglycerides TSH Arterial Blood Glucose Arterial Blood Ionized Calcium Urine pH Urine WBC (Auto) Urine Creatinine 10/27/20 10/27/20 10/27/20 07:30 07:30 11:59 WBC RBC 3.46 L Hgb 10.2 L Hct 30.9 L RDW Lymph % (Auto) [place] % (Auto) Eos % (Auto) Lymph # (Auto) [place] # (Auto) Eos # (Auto) Seg Neutrophils % Lymphocytes % (Manual) Monocytes % (Manual) Seg Neutrophils # Seg Neutrophils # Man Lymphocytes # (Manual) Monocytes # (Manual) D-Dimer Heparin Anti-Xa Level ABG pH POC ABG pCO2 POC ABG pO2 ABG pO2 ABG HCO3 ABG O2 Saturation ABG Base Excess ABG Hemoglobin ABG Oxyhemoglobin ABG Sodium ABG Potassium ABG Chloride ABG Glucose VBG pH Oxyhemoglobin Carboxyhemoglobin Sodium 146 H Potassium Chloride Carbon Dioxide 34 H BUN 45 H Creatinine Glucose 131 H POC Glucose 143 H Lactic Acid Calcium Phosphorus Magnesium Total Bilirubin AST ALT Ammonia Lactate Dehydrogenase Total Creatine Kinase CK-MB (CK-2) Troponin T C-Reactive Protein NT-Pro-B Natriuret Pep Total Protein Albumin Triglycerides TSH Arterial Blood Glucose Arterial Blood Ionized Calcium Urine pH Urine WBC (Auto) Urine Creatinine 10/27/20 10/27/20 10/28/20 18:52 23:03 07:00 WBC RBC Hgb Hct RDW Lymph % (Auto) [place] % (Auto) Eos % (Auto) Lymph # (Auto) [place] # (Auto) Eos # (Auto) Seg Neutrophils % Lymphocytes % (Manual) Monocytes % (Manual) Seg Neutrophils # Seg Neutrophils # Man Lymphocytes # (Manual) Monocytes # (Manual) D-Dimer Heparin Anti-Xa Level ABG pH POC ABG pCO2 POC ABG pO2 ABG pO2 ABG HCO3 ABG O2 Saturation ABG Base Excess ABG Hemoglobin ABG Oxyhemoglobin ABG Sodium ABG Potassium ABG Chloride ABG Glucose VBG pH Oxyhemoglobin Carboxyhemoglobin Sodium 147 H Potassium Chloride Carbon Dioxide 35 H BUN 39 H Creatinine Glucose 133 H POC Glucose 119 H 158 H Lactic Acid Calcium Phosphorus Magnesium Total Bilirubin AST ALT Ammonia Lactate Dehydrogenase Total Creatine Kinase CK-MB (CK-2) Troponin T C-Reactive Protein NT-Pro-B Natriuret Pep Total Protein Albumin Triglycerides TSH Arterial Blood Glucose Arterial Blood Ionized Calcium Urine pH Urine WBC (Auto) Urine Creatinine 10/28/20 10/28/20 10/28/20 09:00 11:47 17:15 WBC 12.5 H RBC 3.58 L Hgb 10.5 L Hct 32.1 L RDW Lymph % (Auto) [place] % (Auto) Eos % (Auto) Lymph # (Auto) [place] # (Auto) Eos # (Auto) Seg Neutrophils % Lymphocytes % (Manual) Monocytes % (Manual) Seg Neutrophils # Seg Neutrophils # Man Lymphocytes # (Manual) Monocytes # (Manual) D-Dimer Heparin Anti-Xa Level ABG pH POC ABG pCO2 POC ABG pO2 ABG pO2 ABG HCO3 ABG O2 Saturation ABG Base Excess ABG Hemoglobin ABG Oxyhemoglobin ABG Sodium ABG Potassium ABG Chloride ABG Glucose VBG pH Oxyhemoglobin Carboxyhemoglobin Sodium Potassium Chloride Carbon Dioxide BUN Creatinine Glucose POC Glucose 129 H 109 H Lactic Acid Calcium Phosphorus Magnesium Total Bilirubin AST ALT Ammonia Lactate Dehydrogenase Total Creatine Kinase CK-MB (CK-2) Troponin T C-Reactive Protein NT-Pro-B Natriuret Pep Total Protein Albumin Triglycerides TSH Arterial Blood Glucose Arterial Blood Ionized Calcium Urine pH Urine WBC (Auto) Urine Creatinine 10/28/20 10/29/20 10/29/20 23:31 04:23 04:23 WBC 13.6 H RBC 3.47 L Hgb 10.5 L Hct 30.7 L RDW 15.4 H Lymph % (Auto) [place] % (Auto) Eos % (Auto) Lymph # (Auto) [place] # (Auto) Eos # (Auto) Seg Neutrophils % Lymphocytes % (Manual) Monocytes % (Manual) Seg Neutrophils # Seg Neutrophils # Man Lymphocytes # (Manual) Monocytes # (Manual) D-Dimer Heparin Anti-Xa Level ABG pH POC ABG pCO2 POC ABG pO2 ABG pO2 ABG HCO3 ABG O2 Saturation ABG Base Excess ABG Hemoglobin ABG Oxyhemoglobin ABG Sodium ABG Potassium ABG Chloride ABG Glucose VBG pH Oxyhemoglobin Carboxyhemoglobin Sodium Potassium Chloride Carbon Dioxide 35 H BUN 34 H Creatinine Glucose 107 H POC Glucose 138 H Lactic Acid Calcium Phosphorus Magnesium Total Bilirubin AST ALT Ammonia Lactate Dehydrogenase Total Creatine Kinase CK-MB (CK-2) Troponin T C-Reactive Protein NT-Pro-B Natriuret Pep Total Protein Albumin Triglycerides TSH Arterial Blood Glucose Arterial Blood Ionized Calcium Urine pH Urine WBC (Auto) Urine Creatinine 10/29/20 10/29/20 10/29/20 05:21 11:49 23:19 WBC RBC Hgb Hct RDW Lymph % (Auto) [place] % (Auto) Eos % (Auto) Lymph # (Auto) [place] # (Auto) Eos # (Auto) Seg Neutrophils % Lymphocytes % (Manual) Monocytes % (Manual) Seg Neutrophils # Seg Neutrophils # Man Lymphocytes # (Manual) Monocytes # (Manual) D-Dimer Heparin Anti-Xa Level ABG pH POC ABG pCO2 POC ABG pO2 ABG pO2 ABG HCO3 ABG O2 Saturation ABG Base Excess ABG Hemoglobin ABG Oxyhemoglobin ABG Sodium ABG Potassium ABG Chloride ABG Glucose VBG pH Oxyhemoglobin Carboxyhemoglobin Sodium Potassium Chloride Carbon Dioxide BUN Creatinine Glucose POC Glucose 115 H 124 H 129 H Lactic Acid Calcium Phosphorus Magnesium Total Bilirubin AST ALT Ammonia Lactate Dehydrogenase Total Creatine Kinase CK-MB (CK-2) Troponin T C-Reactive Protein NT-Pro-B Natriuret Pep Total Protein Albumin Triglycerides TSH Arterial Blood Glucose Arterial Blood Ionized Calcium Urine pH Urine WBC (Auto) Urine Creatinine 0410/30/20 10/30/20 04:59 05:10 11:52 WBC RBC Hgb Hct RDW Lymph % (Auto) [place] % (Auto) Eos % (Auto) Lymph # (Auto) [place] # (Auto) Eos # (Auto) Seg Neutrophils % Lymphocytes % (Manual) Monocytes % (Manual) Seg Neutrophils # Seg Neutrophils # Man Lymphocytes # (Manual) Monocytes # (Manual) D-Dimer Heparin Anti-Xa Level ABG pH POC ABG pCO2 POC ABG pO2 ABG pO2 ABG HCO3 ABG O2 Saturation ABG Base Excess ABG Hemoglobin ABG Oxyhemoglobin ABG Sodium ABG Potassium ABG Chloride ABG Glucose VBG pH Oxyhemoglobin Carboxyhemoglobin Sodium Potassium Chloride Carbon Dioxide 34 H BUN 33 H Creatinine Glucose 128 H POC Glucose 126 H 132 H Lactic Acid Calcium Phosphorus Magnesium Total Bilirubin AST ALT Ammonia Lactate Dehydrogenase Total Creatine Kinase CK-MB (CK-2) Troponin T C-Reactive Protein NT-Pro-B Natriuret Pep Total Protein Albumin Triglycerides TSH Arterial Blood Glucose Arterial Blood Ionized Calcium Urine pH Urine WBC (Auto) Urine Creatinine 10/30/20 10/30/20 10/31/20 16:59 23:19 04:00 WBC RBC Hgb Hct RDW Lymph % (Auto) [place] % (Auto) Eos % (Auto) Lymph # (Auto) [place] # (Auto) Eos # (Auto) Seg Neutrophils % Lymphocytes % (Manual) Monocytes % (Manual) Seg Neutrophils # Seg Neutrophils # Man Lymphocytes # (Manual) Monocytes # (Manual) D-Dimer Heparin Anti-Xa Level ABG pH POC ABG pCO2 POC ABG pO2 ABG pO2 ABG HCO3 ABG O2 Saturation ABG Base Excess ABG Hemoglobin ABG Oxyhemoglobin ABG Sodium ABG Potassium ABG Chloride ABG Glucose VBG pH Oxyhemoglobin Carboxyhemoglobin Sodium Potassium Chloride Carbon Dioxide 38 H BUN 32 H Creatinine Glucose 121 H POC Glucose 118 H 138 H Lactic Acid Calcium Phosphorus Magnesium Total Bilirubin AST ALT Ammonia Lactate Dehydrogenase Total Creatine Kinase CK-MB (CK-2) Troponin T C-Reactive Protein NT-Pro-B Natriuret Pep Total Protein Albumin Triglycerides TSH Arterial Blood Glucose Arterial Blood Ionized Calcium Urine pH Urine WBC (Auto) Urine Creatinine 10/31/20 10/31/20 10/31/20 05:13 11:09 16:17 WBC RBC Hgb Hct RDW Lymph % (Auto) [place] % (Auto) Eos % (Auto) Lymph # (Auto) [place] # (Auto) Eos # (Auto) Seg Neutrophils % Lymphocytes % (Manual) Monocytes % (Manual) Seg Neutrophils # Seg Neutrophils # Man Lymphocytes # (Manual) Monocytes # (Manual) D-Dimer Heparin Anti-Xa Level ABG pH POC ABG pCO2 71.1 H POC ABG pO2 67.4 L ABG pO2 ABG HCO3 ABG O2 Saturation ABG Base Excess ABG Hemoglobin 10.9 L ABG Oxyhemoglobin 90.7 L ABG Sodium ABG Potassium ABG Chloride ABG Glucose 134 H VBG pH Oxyhemoglobin Carboxyhemoglobin Sodium Potassium Chloride Carbon Dioxide BUN Creatinine Glucose POC Glucose 110 H 138 H Lactic Acid Calcium Phosphorus Magnesium Total Bilirubin AST ALT Ammonia Lactate Dehydrogenase Total Creatine Kinase CK-MB (CK-2) Troponin T C-Reactive Protein NT-Pro-B Natriuret Pep Total Protein Albumin Triglycerides TSH Arterial Blood Glucose 134 H Arterial Blood Ionized Calcium Urine pH Urine WBC (Auto) Urine Creatinine 10/31/20 10/31/20 11/01/20 18:16 23:56 04:09 WBC 11.3 H RBC 3.05 L Hgb 9.0 L Hct 27.3 L RDW Lymph % (Auto) [place] % (Auto) Eos % (Auto) Lymph # (Auto) [place] # (Auto) Eos # (Auto) Seg Neutrophils % Lymphocytes % (Manual) Monocytes % (Manual) Seg Neutrophils # Seg Neutrophils # Man Lymphocytes # (Manual) Monocytes # (Manual) D-Dimer Heparin Anti-Xa Level ABG pH POC ABG pCO2 POC ABG pO2 ABG pO2 ABG HCO3 ABG O2 Saturation ABG Base Excess ABG Hemoglobin ABG Oxyhemoglobin ABG Sodium ABG Potassium ABG Chloride ABG Glucose VBG pH Oxyhemoglobin Carboxyhemoglobin Sodium Potassium Chloride Carbon Dioxide BUN Creatinine Glucose POC Glucose 135 H 122 H Lactic Acid Calcium Phosphorus Magnesium Total Bilirubin AST ALT Ammonia Lactate Dehydrogenase Total Creatine Kinase CK-MB (CK-2) Troponin T C-Reactive Protein NT-Pro-B Natriuret Pep Total Protein Albumin Triglycerides TSH Arterial Blood Glucose Arterial Blood Ionized Calcium Urine pH Urine WBC (Auto) Urine Creatinine 11/01/20 11/01/20 11/01/20 05:10 11:51 17:17 WBC RBC Hgb Hct RDW Lymph % (Auto) [place] % (Auto) Eos % (Auto) Lymph # (Auto) [place] # (Auto) Eos # (Auto) Seg Neutrophils % Lymphocytes % (Manual) Monocytes % (Manual) Seg Neutrophils # Seg Neutrophils # Man Lymphocytes # (Manual) Monocytes # (Manual) D-Dimer Heparin Anti-Xa Level ABG pH POC ABG pCO2 POC ABG pO2 ABG pO2 ABG HCO3 ABG O2 Saturation ABG Base Excess ABG Hemoglobin ABG Oxyhemoglobin ABG Sodium ABG Potassium ABG Chloride ABG Glucose VBG pH Oxyhemoglobin Carboxyhemoglobin Sodium Potassium Chloride Carbon Dioxide BUN Creatinine Glucose POC Glucose 123 H 123 H 120 H Lactic Acid Calcium Phosphorus Magnesium Total Bilirubin AST ALT Ammonia Lactate Dehydrogenase Total Creatine Kinase CK-MB (CK-2) Troponin T C-Reactive Protein NT-Pro-B Natriuret Pep Total Protein Albumin Triglycerides TSH Arterial Blood Glucose Arterial Blood Ionized Calcium Urine pH Urine WBC (Auto) Urine Creatinine 11/02/20 11/02/20 11/02/20 03:14 05:37 05:37 WBC RBC Hgb 9.8 L Hct 29.5 L RDW Lymph % (Auto) [place] % (Auto) Eos % (Auto) Lymph # (Auto) [place] # (Auto) Eos # (Auto) Seg Neutrophils % Lymphocytes % (Manual) Monocytes % (Manual) Seg Neutrophils # Seg Neutrophils # Man Lymphocytes # (Manual) Monocytes # (Manual) D-Dimer Heparin Anti-Xa Level ABG pH POC ABG pCO2 58.9 H POC ABG pO2 79.9 L ABG pO2 ABG HCO3 ABG O2 Saturation ABG Base Excess ABG Hemoglobin 10.6 L ABG Oxyhemoglobin ABG Sodium ABG Potassium ABG Chloride ABG Glucose 110 H VBG pH Oxyhemoglobin Carboxyhemoglobin Sodium Potassium Chloride Carbon Dioxide 37 H BUN 28 H Creatinine Glucose 106 H POC Glucose Lactic Acid Calcium Phosphorus Magnesium Total Bilirubin AST ALT Ammonia Lactate Dehydrogenase Total Creatine Kinase CK-MB (CK-2) Troponin T C-Reactive Protein NT-Pro-B Natriuret Pep Total Protein Albumin Triglycerides TSH Arterial Blood Glucose 110 H Arterial Blood Ionized Calcium Urine pH Urine WBC (Auto) Urine Creatinine 11/02/20 11/03/20 11/03/20 23:29 04:45 04:45 WBC 11.8 H RBC 3.07 L Hgb 9.0 L Hct 27.2 L RDW Lymph % (Auto) 11.4 L [place] % (Auto) 9.5 H Eos % (Auto) Lymph # (Auto) [place] # (Auto) 1.1 H Eos # (Auto) Seg Neutrophils % 75.9 H Lymphocytes % (Manual) Monocytes % (Manual) Seg Neutrophils # 9.0 H Seg Neutrophils # Man Lymphocytes # (Manual) Monocytes # (Manual) D-Dimer Heparin Anti-Xa Level ABG pH POC ABG pCO2 POC ABG pO2 ABG pO2 ABG HCO3 ABG O2 Saturation ABG Base Excess ABG Hemoglobin ABG Oxyhemoglobin ABG Sodium ABG Potassium ABG Chloride ABG Glucose VBG pH Oxyhemoglobin Carboxyhemoglobin Sodium 146 H Potassium Chloride Carbon Dioxide 39 H BUN 26 H Creatinine Glucose POC Glucose 129 H Lactic Acid Calcium Phosphorus Magnesium Total Bilirubin AST ALT Ammonia Lactate Dehydrogenase Total Creatine Kinase CK-MB (CK-2) Troponin T C-Reactive Protein NT-Pro-B Natriuret Pep Total Protein Albumin Triglycerides TSH Arterial Blood Glucose Arterial Blood Ionized Calcium Urine pH Urine WBC (Auto) Urine Creatinine 11/03/20 11/03/20 11/03/20 05:05 11:51 17:43 WBC RBC Hgb Hct RDW Lymph % (Auto) [place] % (Auto) Eos % (Auto) Lymph # (Auto) [place] # (Auto) Eos # (Auto) Seg Neutrophils % Lymphocytes % (Manual) Monocytes % (Manual) Seg Neutrophils # Seg Neutrophils # Man Lymphocytes # (Manual) Monocytes # (Manual) D-Dimer Heparin Anti-Xa Level ABG pH 7.452 H POC ABG pCO2 55.4 H POC ABG pO2 129.1 H ABG pO2 ABG HCO3 ABG O2 Saturation ABG Base Excess ABG Hemoglobin 9.3 L ABG Oxyhemoglobin ABG Sodium ABG Potassium ABG Chloride ABG Glucose 99 H VBG pH Oxyhemoglobin Carboxyhemoglobin 1.7 H Sodium Potassium Chloride Carbon Dioxide BUN Creatinine Glucose POC Glucose 131 H 125 H Lactic Acid Calcium Phosphorus Magnesium Total Bilirubin AST ALT Ammonia Lactate Dehydrogenase Total Creatine Kinase CK-MB (CK-2) Troponin T C-Reactive Protein NT-Pro-B Natriuret Pep Total Protein Albumin Triglycerides TSH Arterial Blood Glucose 99 H Arterial Blood Ionized Calcium Urine pH Urine WBC (Auto) Urine Creatinine 11/03/20 11/04/20 11/04/20 23:27 04:00 05:10 WBC RBC Hgb Hct RDW Lymph % (Auto) [place] % (Auto) Eos % (Auto) Lymph # (Auto) [place] # (Auto) Eos # (Auto) Seg Neutrophils % Lymphocytes % (Manual) Monocytes % (Manual) Seg Neutrophils # Seg Neutrophils # Man Lymphocytes # (Manual) Monocytes # (Manual) D-Dimer Heparin Anti-Xa Level ABG pH POC ABG pCO2 POC ABG pO2 ABG pO2 ABG HCO3 ABG O2 Saturation ABG Base Excess ABG Hemoglobin ABG Oxyhemoglobin ABG Sodium ABG Potassium ABG Chloride ABG Glucose VBG pH Oxyhemoglobin Carboxyhemoglobin Sodium Potassium Chloride 95.2 L Carbon Dioxide 40 H BUN 26 H Creatinine Glucose 128 H POC Glucose 148 H 126 H Lactic Acid Calcium Phosphorus Magnesium Total Bilirubin AST ALT Ammonia Lactate Dehydrogenase Total Creatine Kinase CK-MB (CK-2) Troponin T C-Reactive Protein NT-Pro-B Natriuret Pep Total Protein Albumin Triglycerides TSH Arterial Blood Glucose Arterial Blood Ionized Calcium Urine pH Urine WBC (Auto) Urine Creatinine 11/04/20 11/04/20 11/04/20 11:39 18:00 21:18 WBC RBC Hgb Hct RDW Lymph % (Auto) [place] % (Auto) Eos % (Auto) Lymph # (Auto) [place] # (Auto) Eos # (Auto) Seg Neutrophils % Lymphocytes % (Manual) Monocytes % (Manual) Seg Neutrophils # Seg Neutrophils # Man Lymphocytes # (Manual) Monocytes # (Manual) D-Dimer Heparin Anti-Xa Level ABG pH 7.511 H POC ABG pCO2 49.0 H POC ABG pO2 ABG pO2 ABG HCO3 ABG O2 Saturation ABG Base Excess ABG Hemoglobin 9.5 L ABG Oxyhemoglobin ABG Sodium 135.7 L ABG Potassium ABG Chloride ABG Glucose 152 H VBG pH Oxyhemoglobin Carboxyhemoglobin Sodium Potassium Chloride Carbon Dioxide BUN Creatinine Glucose POC Glucose 142 H 130 H Lactic Acid Calcium Phosphorus Magnesium Total Bilirubin AST ALT Ammonia Lactate Dehydrogenase Total Creatine Kinase CK-MB (CK-2) Troponin T C-Reactive Protein NT-Pro-B Natriuret Pep Total Protein Albumin Triglycerides TSH Arterial Blood Glucose 152 H Arterial Blood Ionized Calcium 4.3 L Urine pH Urine WBC (Auto) Urine Creatinine 11/04/20 11/05/20 11/05/20 23:19 03:30 03:30 WBC RBC 3.02 L Hgb 9.1 L Hct 26.7 L RDW Lymph % (Auto) [place] % (Auto) Eos % (Auto) Lymph # (Auto) [place] # (Auto) Eos # (Auto) Seg Neutrophils % Lymphocytes % (Manual) Monocytes % (Manual) Seg Neutrophils # Seg Neutrophils # Man Lymphocytes # (Manual) Monocytes # (Manual) D-Dimer Heparin Anti-Xa Level ABG pH POC ABG pCO2 POC ABG pO2 ABG pO2 ABG HCO3 ABG O2 Saturation ABG Base Excess ABG Hemoglobin ABG Oxyhemoglobin ABG Sodium ABG Potassium ABG Chloride ABG Glucose VBG pH Oxyhemoglobin Carboxyhemoglobin Sodium Potassium Chloride 93.6 L Carbon Dioxide 40 H BUN 24 H Creatinine Glucose 121 H POC Glucose 126 H Lactic Acid Calcium Phosphorus Magnesium Total Bilirubin AST ALT Ammonia Lactate Dehydrogenase Total Creatine Kinase CK-MB (CK-2) Troponin T C-Reactive Protein NT-Pro-B Natriuret Pep Total Protein Albumin Triglycerides TSH Arterial Blood Glucose Arterial Blood Ionized Calcium Urine pH Urine WBC (Auto) Urine Creatinine 11/05/20 11/05/20 11/05/20 05:24 11:37 17:37 WBC RBC Hgb Hct RDW Lymph % (Auto) [place] % (Auto) Eos % (Auto) Lymph # (Auto) [place] # (Auto) Eos # (Auto) Seg Neutrophils % Lymphocytes % (Manual) Monocytes % (Manual) Seg Neutrophils # Seg Neutrophils # Man Lymphocytes # (Manual) Monocytes # (Manual) D-Dimer Heparin Anti-Xa Level ABG pH POC ABG pCO2 POC ABG pO2 ABG pO2 ABG HCO3 ABG O2 Saturation ABG Base Excess ABG Hemoglobin ABG Oxyhemoglobin ABG Sodium ABG Potassium ABG Chloride ABG Glucose VBG pH Oxyhemoglobin Carboxyhemoglobin Sodium Potassium Chloride Carbon Dioxide BUN Creatinine Glucose POC Glucose 124 H 125 H 153 H Lactic Acid Calcium Phosphorus Magnesium Total Bilirubin AST ALT Ammonia Lactate Dehydrogenase Total Creatine Kinase CK-MB (CK-2) Troponin T C-Reactive Protein NT-Pro-B Natriuret Pep Total Protein Albumin Triglycerides TSH Arterial Blood Glucose Arterial Blood Ionized Calcium Urine pH Urine WBC (Auto) Urine Creatinine 11/05/20 11/06/20 11/06/20 23:20 05:24 12:17 WBC RBC Hgb Hct RDW Lymph % (Auto) [place] % (Auto) Eos % (Auto) Lymph # (Auto) [place] # (Auto) Eos # (Auto) Seg Neutrophils % Lymphocytes % (Manual) Monocytes % (Manual) Seg Neutrophils # Seg Neutrophils # Man Lymphocytes # (Manual) Monocytes # (Manual) D-Dimer Heparin Anti-Xa Level ABG pH POC ABG pCO2 POC ABG pO2 ABG pO2 ABG HCO3 ABG O2 Saturation ABG Base Excess ABG Hemoglobin ABG Oxyhemoglobin ABG Sodium ABG Potassium ABG Chloride ABG Glucose VBG pH Oxyhemoglobin Carboxyhemoglobin Sodium Potassium Chloride Carbon Dioxide BUN Creatinine Glucose POC Glucose 133 H 143 H 139 H Lactic Acid Calcium Phosphorus Magnesium Total Bilirubin AST ALT Ammonia Lactate Dehydrogenase Total Creatine Kinase CK-MB (CK-2) Troponin T C-Reactive Protein NT-Pro-B Natriuret Pep Total Protein Albumin Triglycerides TSH Arterial Blood Glucose Arterial Blood Ionized Calcium Urine pH Urine WBC (Auto) Urine Creatinine 11/06/20 11/06/20 11/07/20 17:38 23:26 04:50 WBC RBC 3.24 L Hgb 9.6 L Hct 29.0 L RDW Lymph % (Auto) [place] % (Auto) 10.3 H Eos % (Auto) 6.9 H Lymph # (Auto) [place] # (Auto) Eos # (Auto) 0.5 H Seg Neutrophils % Lymphocytes % (Manual) Monocytes % (Manual) Seg Neutrophils # Seg Neutrophils # Man Lymphocytes # (Manual) Monocytes # (Manual) D-Dimer Heparin Anti-Xa Level ABG pH POC ABG pCO2 POC ABG pO2 ABG pO2 ABG HCO3 ABG O2 Saturation ABG Base Excess ABG Hemoglobin ABG Oxyhemoglobin ABG Sodium ABG Potassium ABG Chloride ABG Glucose VBG pH Oxyhemoglobin Carboxyhemoglobin Sodium Potassium Chloride Carbon Dioxide BUN Creatinine Glucose POC Glucose 139 H 117 H Lactic Acid Calcium Phosphorus Magnesium Total Bilirubin AST ALT Ammonia Lactate Dehydrogenase Total Creatine Kinase CK-MB (CK-2) Troponin T C-Reactive Protein NT-Pro-B Natriuret Pep Total Protein Albumin Triglycerides TSH Arterial Blood Glucose Arterial Blood Ionized Calcium Urine pH Urine WBC (Auto) Urine Creatinine 11/07/20 11/07/20 11/07/20 04:50 05:10 12:22 WBC RBC Hgb Hct RDW Lymph % (Auto) [place] % (Auto) Eos % (Auto) Lymph # (Auto) [place] # (Auto) Eos # (Auto) Seg Neutrophils % Lymphocytes % (Manual) Monocytes % (Manual) Seg Neutrophils # Seg Neutrophils # Man Lymphocytes # (Manual) Monocytes # (Manual) D-Dimer Heparin Anti-Xa Level ABG pH POC ABG pCO2 POC ABG pO2 ABG pO2 ABG HCO3 ABG O2 Saturation ABG Base Excess ABG Hemoglobin ABG Oxyhemoglobin ABG Sodium ABG Potassium ABG Chloride ABG Glucose VBG pH Oxyhemoglobin Carboxyhemoglobin Sodium Potassium Chloride 97.2 L Carbon Dioxide 36 H BUN 25 H Creatinine Glucose 130 H POC Glucose 115 H 118 H Lactic Acid Calcium Phosphorus Magnesium Total Bilirubin AST ALT Ammonia Lactate Dehydrogenase Total Creatine Kinase CK-MB (CK-2) Troponin T C-Reactive Protein NT-Pro-B Natriuret Pep Total Protein Albumin Triglycerides TSH Arterial Blood Glucose Arterial Blood Ionized Calcium Urine pH Urine WBC (Auto) Urine Creatinine 11/07/20 11/07/20 11/08/20 17:46 23:53 07:16 WBC RBC Hgb Hct RDW Lymph % (Auto) [place] % (Auto) Eos % (Auto) Lymph # (Auto) [place] # (Auto) Eos # (Auto) Seg Neutrophils % Lymphocytes % (Manual) Monocytes % (Manual) Seg Neutrophils # Seg Neutrophils # Man Lymphocytes # (Manual) Monocytes # (Manual) D-Dimer Heparin Anti-Xa Level ABG pH POC ABG pCO2 POC ABG pO2 ABG pO2 ABG HCO3 ABG O2 Saturation ABG Base Excess ABG Hemoglobin ABG Oxyhemoglobin ABG Sodium ABG Potassium ABG Chloride ABG Glucose VBG pH Oxyhemoglobin Carboxyhemoglobin Sodium Potassium Chloride Carbon Dioxide BUN Creatinine Glucose POC Glucose 150 H 141 H 134 H Lactic Acid Calcium Phosphorus Magnesium Total Bilirubin AST ALT Ammonia Lactate Dehydrogenase Total Creatine Kinase CK-MB (CK-2) Troponin T C-Reactive Protein NT-Pro-B Natriuret Pep Total Protein Albumin Triglycerides TSH Arterial Blood Glucose Arterial Blood Ionized Calcium Urine pH Urine WBC (Auto) Urine Creatinine 11/08/20 11/08/20 11/08/20 11:35 17:59 23:50 WBC RBC Hgb Hct RDW Lymph % (Auto) [place] % (Auto) Eos % (Auto) Lymph # (Auto) [place] # (Auto) Eos # (Auto) Seg Neutrophils % Lymphocytes % (Manual) Monocytes % (Manual) Seg Neutrophils # Seg Neutrophils # Man Lymphocytes # (Manual) Monocytes # (Manual) D-Dimer Heparin Anti-Xa Level ABG pH POC ABG pCO2 POC ABG pO2 ABG pO2 ABG HCO3 ABG O2 Saturation ABG Base Excess ABG Hemoglobin ABG Oxyhemoglobin ABG Sodium ABG Potassium ABG Chloride ABG Glucose VBG pH Oxyhemoglobin Carboxyhemoglobin Sodium Potassium Chloride Carbon Dioxide BUN Creatinine Glucose POC Glucose 148 H 118 H 131 H Lactic Acid Calcium Phosphorus Magnesium Total Bilirubin AST ALT Ammonia Lactate Dehydrogenase Total Creatine Kinase CK-MB (CK-2) Troponin T C-Reactive Protein NT-Pro-B Natriuret Pep Total Protein Albumin Triglycerides TSH Arterial Blood Glucose Arterial Blood Ionized Calcium Urine pH Urine WBC (Auto) Urine Creatinine 11/09/20 11/09/20 11/09/20 12:07 17:00 23:45 WBC RBC Hgb Hct RDW Lymph % (Auto) [place] % (Auto) Eos % (Auto) Lymph # (Auto) [place] # (Auto) Eos # (Auto) Seg Neutrophils % Lymphocytes % (Manual) Monocytes % (Manual) Seg Neutrophils # Seg Neutrophils # Man Lymphocytes # (Manual) Monocytes # (Manual) D-Dimer Heparin Anti-Xa Level ABG pH POC ABG pCO2 POC ABG pO2 ABG pO2 ABG HCO3 ABG O2 Saturation ABG Base Excess ABG Hemoglobin ABG Oxyhemoglobin ABG Sodium ABG Potassium ABG Chloride ABG Glucose VBG pH Oxyhemoglobin Carboxyhemoglobin Sodium Potassium Chloride Carbon Dioxide BUN Creatinine Glucose POC Glucose 133 H 126 H 129 H Lactic Acid Calcium Phosphorus Magnesium Total Bilirubin AST ALT Ammonia Lactate Dehydrogenase Total Creatine Kinase CK-MB (CK-2) Troponin T C-Reactive Protein NT-Pro-B Natriuret Pep Total Protein Albumin Triglycerides TSH Arterial Blood Glucose Arterial Blood Ionized Calcium Urine pH Urine WBC (Auto) Urine Creatinine 11/10/20 11/10/20 11/10/20 05:43 11:47 17:56 WBC RBC Hgb Hct RDW Lymph % (Auto) [place] % (Auto) Eos % (Auto) Lymph # (Auto) [place] # (Auto) Eos # (Auto) Seg Neutrophils % Lymphocytes % (Manual) Monocytes % (Manual) Seg Neutrophils # Seg Neutrophils # Man Lymphocytes # (Manual) Monocytes # (Manual) D-Dimer Heparin Anti-Xa Level ABG pH POC ABG pCO2 POC ABG pO2 ABG pO2 ABG HCO3 ABG O2 Saturation ABG Base Excess ABG Hemoglobin ABG Oxyhemoglobin ABG Sodium ABG Potassium ABG Chloride ABG Glucose VBG pH Oxyhemoglobin Carboxyhemoglobin Sodium Potassium Chloride Carbon Dioxide BUN Creatinine Glucose POC Glucose 111 H 136 H 110 H Lactic Acid Calcium Phosphorus Magnesium Total Bilirubin AST ALT Ammonia Lactate Dehydrogenase Total Creatine Kinase CK-MB (CK-2) Troponin T C-Reactive Protein NT-Pro-B Natriuret Pep Total Protein Albumin Triglycerides TSH Arterial Blood Glucose Arterial Blood Ionized Calcium Urine pH Urine WBC (Auto) Urine Creatinine 11/10/20 11/11/20 11/11/20 23:34 03:11 05:22 WBC RBC Hgb Hct RDW Lymph % (Auto) [place] % (Auto) Eos % (Auto) Lymph # (Auto) [place] # (Auto) Eos # (Auto) Seg Neutrophils % Lymphocytes % (Manual) Monocytes % (Manual) Seg Neutrophils # Seg Neutrophils # Man Lymphocytes # (Manual) Monocytes # (Manual) D-Dimer Heparin Anti-Xa Level ABG pH POC ABG pCO2 64.5 H POC ABG pO2 ABG pO2 ABG HCO3 ABG O2 Saturation ABG Base Excess ABG Hemoglobin 9.7 L ABG Oxyhemoglobin ABG Sodium ABG Potassium 5.0 H ABG Chloride ABG Glucose 148 H VBG pH Oxyhemoglobin Carboxyhemoglobin Sodium Potassium Chloride Carbon Dioxide BUN Creatinine Glucose POC Glucose 134 H 132 H Lactic Acid Calcium Phosphorus Magnesium Total Bilirubin AST ALT Ammonia Lactate Dehydrogenase Total Creatine Kinase CK-MB (CK-2) Troponin T C-Reactive Protein NT-Pro-B Natriuret Pep Total Protein Albumin Triglycerides TSH Arterial Blood Glucose 148 H Arterial Blood Ionized Calcium Urine pH Urine WBC (Auto) Urine Creatinine 11/11/20 11/11/20 11/11/20 08:38 11:00 12:01 WBC RBC 2.79 L Hgb 8.4 L Hct 25.4 L RDW Lymph % (Auto) [place] % (Auto) Eos % (Auto) Lymph # (Auto) [place] # (Auto) Eos # (Auto) Seg Neutrophils % Lymphocytes % (Manual) Monocytes % (Manual) Seg Neutrophils # Seg Neutrophils # Man Lymphocytes # (Manual) Monocytes # (Manual) D-Dimer Heparin Anti-Xa Level ABG pH POC ABG pCO2 POC ABG pO2 ABG pO2 ABG HCO3 ABG O2 Saturation ABG Base Excess ABG Hemoglobin ABG Oxyhemoglobin ABG Sodium ABG Potassium ABG Chloride ABG Glucose VBG pH Oxyhemoglobin Carboxyhemoglobin Sodium 136 L Potassium Chloride 97.6 L Carbon Dioxide 35 H BUN 26 H Creatinine Glucose 133 H POC Glucose 142 H Lactic Acid Calcium 8.0 L Phosphorus Magnesium Total Bilirubin AST ALT Ammonia Lactate Dehydrogenase Total Creatine Kinase CK-MB (CK-2) Troponin T C-Reactive Protein NT-Pro-B Natriuret Pep Total Protein Albumin Triglycerides TSH Arterial Blood Glucose Arterial Blood Ionized Calcium Urine pH Urine WBC (Auto) Urine Creatinine 11/11/20 11/12/20 11/12/20 23:12 05:31 07:41 WBC RBC Hgb Hct RDW Lymph % (Auto) [place] % (Auto) Eos % (Auto) Lymph # (Auto) [place] # (Auto) Eos # (Auto) Seg Neutrophils % Lymphocytes % (Manual) Monocytes % (Manual) Seg Neutrophils # Seg Neutrophils # Man Lymphocytes # (Manual) Monocytes # (Manual) D-Dimer Heparin Anti-Xa Level ABG pH POC ABG pCO2 POC ABG pO2 ABG pO2 ABG HCO3 ABG O2 Saturation ABG Base Excess ABG Hemoglobin ABG Oxyhemoglobin ABG Sodium ABG Potassium ABG Chloride ABG Glucose VBG pH Oxyhemoglobin Carboxyhemoglobin Sodium Potassium Chloride Carbon Dioxide BUN Creatinine Glucose POC Glucose 127 H 117 H 137 H Lactic Acid Calcium Phosphorus Magnesium Total Bilirubin AST ALT Ammonia Lactate Dehydrogenase Total Creatine Kinase CK-MB (CK-2) Troponin T C-Reactive Protein NT-Pro-B Natriuret Pep Total Protein Albumin Triglycerides TSH Arterial Blood Glucose Arterial Blood Ionized Calcium Urine pH Urine WBC (Auto) Urine Creatinine 11/12/20 11/12/20 11/12/20 11:26 15:29 21:30 WBC RBC Hgb Hct RDW Lymph % (Auto) [place] % (Auto) Eos % (Auto) Lymph # (Auto) [place] # (Auto) Eos # (Auto) Seg Neutrophils % Lymphocytes % (Manual) Monocytes % (Manual) Seg Neutrophils # Seg Neutrophils # Man Lymphocytes # (Manual) Monocytes # (Manual) D-Dimer Heparin Anti-Xa Level ABG pH POC ABG pCO2 POC ABG pO2 ABG pO2 ABG HCO3 ABG O2 Saturation ABG Base Excess ABG Hemoglobin ABG Oxyhemoglobin ABG Sodium ABG Potassium ABG Chloride ABG Glucose VBG pH Oxyhemoglobin Carboxyhemoglobin Sodium Potassium Chloride Carbon Dioxide BUN Creatinine Glucose POC Glucose 130 H 146 H 123 H Lactic Acid Calcium Phosphorus Magnesium Total Bilirubin AST ALT Ammonia Lactate Dehydrogenase Total Creatine Kinase CK-MB (CK-2) Troponin T C-Reactive Protein NT-Pro-B Natriuret Pep Total Protein Albumin Triglycerides TSH Arterial Blood Glucose Arterial Blood Ionized Calcium Urine pH Urine WBC (Auto) Urine Creatinine 11/13/20 11/13/20 11/13/20 05:52 07:37 15:34 WBC RBC Hgb Hct RDW Lymph % (Auto) [place] % (Auto) Eos % (Auto) Lymph # (Auto) [place] # (Auto) Eos # (Auto) Seg Neutrophils % Lymphocytes % (Manual) Monocytes % (Manual) Seg Neutrophils # Seg Neutrophils # Man Lymphocytes # (Manual) Monocytes # (Manual) D-Dimer Heparin Anti-Xa Level ABG pH POC ABG pCO2 POC ABG pO2 ABG pO2 ABG HCO3 ABG O2 Saturation ABG Base Excess ABG Hemoglobin ABG Oxyhemoglobin ABG Sodium ABG Potassium ABG Chloride ABG Glucose VBG pH Oxyhemoglobin Carboxyhemoglobin Sodium Potassium Chloride Carbon Dioxide BUN Creatinine Glucose POC Glucose 142 H 109 H 127 H Lactic Acid Calcium Phosphorus Magnesium Total Bilirubin AST ALT Ammonia Lactate Dehydrogenase Total Creatine Kinase CK-MB (CK-2) Troponin T C-Reactive Protein NT-Pro-B Natriuret Pep Total Protein Albumin Triglycerides TSH Arterial Blood Glucose Arterial Blood Ionized Calcium Urine pH Urine WBC (Auto) Urine Creatinine 11/13/20 11/13/20 11/13/20 16:43 16:52 21:18 WBC RBC Hgb Hct RDW Lymph % (Auto) [place] % (Auto) Eos % (Auto) Lymph # (Auto) [place] # (Auto) Eos # (Auto) Seg Neutrophils % Lymphocytes % (Manual) Monocytes % (Manual) Seg Neutrophils # Seg Neutrophils # Man Lymphocytes # (Manual) Monocytes # (Manual) D-Dimer Heparin Anti-Xa Level ABG pH POC ABG pCO2 68.4 H POC ABG pO2 ABG pO2 ABG HCO3 ABG O2 Saturation ABG Base Excess ABG Hemoglobin 10.0 L ABG Oxyhemoglobin ABG Sodium ABG Potassium ABG Chloride ABG Glucose 133 H VBG pH Oxyhemoglobin Carboxyhemoglobin Sodium Potassium Chloride Carbon Dioxide BUN Creatinine Glucose POC Glucose 111 H 108 H Lactic Acid Calcium Phosphorus Magnesium Total Bilirubin AST ALT Ammonia Lactate Dehydrogenase Total Creatine Kinase CK-MB (CK-2) Troponin T C-Reactive Protein NT-Pro-B Natriuret Pep Total Protein Albumin Triglycerides TSH Arterial Blood Glucose 133 H Arterial Blood Ionized Calcium Urine pH Urine WBC (Auto) Urine Creatinine 11/14/20 11/14/20 11/14/20 12:07 18:16 23:21 WBC RBC Hgb Hct RDW Lymph % (Auto) [place] % (Auto) Eos % (Auto) Lymph # (Auto) [place] # (Auto) Eos # (Auto) Seg Neutrophils % Lymphocytes % (Manual) Monocytes % (Manual) Seg Neutrophils # Seg Neutrophils # Man Lymphocytes # (Manual) Monocytes # (Manual) D-Dimer Heparin Anti-Xa Level ABG pH POC ABG pCO2 POC ABG pO2 ABG pO2 ABG HCO3 ABG O2 Saturation ABG Base Excess ABG Hemoglobin ABG Oxyhemoglobin ABG Sodium ABG Potassium ABG Chloride ABG Glucose VBG pH Oxyhemoglobin Carboxyhemoglobin Sodium Potassium Chloride Carbon Dioxide BUN Creatinine Glucose POC Glucose 107 H 109 H 114 H Lactic Acid Calcium Phosphorus Magnesium Total Bilirubin AST ALT Ammonia Lactate Dehydrogenase Total Creatine Kinase CK-MB (CK-2) Troponin T C-Reactive Protein NT-Pro-B Natriuret Pep Total Protein Albumin Triglycerides TSH Arterial Blood Glucose Arterial Blood Ionized Calcium Urine pH Urine WBC (Auto) Urine Creatinine 11/15/20 11/15/20 11/15/20 11:14 16:11 23:57 WBC RBC Hgb Hct RDW Lymph % (Auto) [place] % (Auto) Eos % (Auto) Lymph # (Auto) [place] # (Auto) Eos # (Auto) Seg Neutrophils % Lymphocytes % (Manual) Monocytes % (Manual) Seg Neutrophils # Seg Neutrophils # Man Lymphocytes # (Manual) Monocytes # (Manual) D-Dimer Heparin Anti-Xa Level ABG pH POC ABG pCO2 POC ABG pO2 ABG pO2 ABG HCO3 ABG O2 Saturation ABG Base Excess ABG Hemoglobin ABG Oxyhemoglobin ABG Sodium ABG Potassium ABG Chloride ABG Glucose VBG pH Oxyhemoglobin Carboxyhemoglobin Sodium Potassium Chloride Carbon Dioxide BUN Creatinine Glucose POC Glucose 126 H 135 H 128 H Lactic Acid Calcium Phosphorus Magnesium Total Bilirubin AST ALT Ammonia Lactate Dehydrogenase Total Creatine Kinase CK-MB (CK-2) Troponin T C-Reactive Protein NT-Pro-B Natriuret Pep Total Protein Albumin Triglycerides TSH Arterial Blood Glucose Arterial Blood Ionized Calcium Urine pH Urine WBC (Auto) Urine Creatinine 11/16/20 11/16/20 11/16/20 12:16 17:15 23:34 WBC RBC Hgb Hct RDW Lymph % (Auto) [place] % (Auto) Eos % (Auto) Lymph # (Auto) [place] # (Auto) Eos # (Auto) Seg Neutrophils % Lymphocytes % (Manual) Monocytes % (Manual) Seg Neutrophils # Seg Neutrophils # Man Lymphocytes # (Manual) Monocytes # (Manual) D-Dimer Heparin Anti-Xa Level ABG pH POC ABG pCO2 POC ABG pO2 ABG pO2 ABG HCO3 ABG O2 Saturation ABG Base Excess ABG Hemoglobin ABG Oxyhemoglobin ABG Sodium ABG Potassium ABG Chloride ABG Glucose VBG pH Oxyhemoglobin Carboxyhemoglobin Sodium Potassium Chloride Carbon Dioxide BUN Creatinine Glucose POC Glucose 138 H 128 H 146 H Lactic Acid Calcium Phosphorus Magnesium Total Bilirubin AST ALT Ammonia Lactate Dehydrogenase Total Creatine Kinase CK-MB (CK-2) Troponin T C-Reactive Protein NT-Pro-B Natriuret Pep Total Protein Albumin Triglycerides TSH Arterial Blood Glucose Arterial Blood Ionized Calcium Urine pH Urine WBC (Auto) Urine Creatinine 11/17/20 11/17/20 11/17/20 03:48 03:48 05:43 WBC RBC 3.07 L Hgb 9.2 L Hct 28.0 L RDW 15.7 H Lymph % (Auto) [place] % (Auto) 12.4 H Eos % (Auto) 6.9 H Lymph # (Auto) 0.9 L [place] # (Auto) Eos # (Auto) 0.5 H Seg Neutrophils % Lymphocytes % (Manual) Monocytes % (Manual) Seg Neutrophils # Seg Neutrophils # Man Lymphocytes # (Manual) Monocytes # (Manual) D-Dimer Heparin Anti-Xa Level ABG pH POC ABG pCO2 POC ABG pO2 ABG pO2 ABG HCO3 ABG O2 Saturation ABG Base Excess ABG Hemoglobin ABG Oxyhemoglobin ABG Sodium ABG Potassium ABG Chloride ABG Glucose VBG pH Oxyhemoglobin Carboxyhemoglobin Sodium Potassium Chloride Carbon Dioxide 36 H BUN 24 H Creatinine Glucose 126 H POC Glucose 121 H Lactic Acid Calcium Phosphorus Magnesium Total Bilirubin AST ALT Ammonia Lactate Dehydrogenase Total Creatine Kinase CK-MB (CK-2) Troponin T C-Reactive Protein NT-Pro-B Natriuret Pep Total Protein Albumin 2.9 L Triglycerides TSH Arterial Blood Glucose Arterial Blood Ionized Calcium Urine pH Urine WBC (Auto) Urine Creatinine 11/17/20 11/17/20 11/17/20 12:24 17:45 23:46 WBC RBC Hgb Hct RDW Lymph % (Auto) [place] % (Auto) Eos % (Auto) Lymph # (Auto) [place] # (Auto) Eos # (Auto) Seg Neutrophils % Lymphocytes % (Manual) Monocytes % (Manual) Seg Neutrophils # Seg Neutrophils # Man Lymphocytes # (Manual) Monocytes # (Manual) D-Dimer Heparin Anti-Xa Level ABG pH POC ABG pCO2 POC ABG pO2 ABG pO2 ABG HCO3 ABG O2 Saturation ABG Base Excess ABG Hemoglobin ABG Oxyhemoglobin ABG Sodium ABG Potassium ABG Chloride ABG Glucose VBG pH Oxyhemoglobin Carboxyhemoglobin Sodium Potassium Chloride Carbon Dioxide BUN Creatinine Glucose POC Glucose 144 H 117 H 118 H Lactic Acid Calcium Phosphorus Magnesium Total Bilirubin AST ALT Ammonia Lactate Dehydrogenase Total Creatine Kinase CK-MB (CK-2) Troponin T C-Reactive Protein NT-Pro-B Natriuret Pep Total Protein Albumin Triglycerides TSH Arterial Blood Glucose Arterial Blood Ionized Calcium Urine pH Urine WBC (Auto) Urine Creatinine 11/18/20 11/18/20 11/18/20 05:20 05:20 05:34 WBC RBC 3.17 L Hgb 9.2 L Hct 28.8 L RDW 15.4 H Lymph % (Auto) 9.7 L [place] % (Auto) 11.3 H Eos % (Auto) 5.3 H Lymph # (Auto) 0.7 L [place] # (Auto) 0.9 H Eos # (Auto) Seg Neutrophils % 73.3 H Lymphocytes % (Manual) Monocytes % (Manual) Seg Neutrophils # Seg Neutrophils # Man Lymphocytes # (Manual) Monocytes # (Manual) D-Dimer Heparin Anti-Xa Level ABG pH POC ABG pCO2 POC ABG pO2 ABG pO2 ABG HCO3 ABG O2 Saturation ABG Base Excess ABG Hemoglobin ABG Oxyhemoglobin ABG Sodium ABG Potassium ABG Chloride ABG Glucose VBG pH Oxyhemoglobin Carboxyhemoglobin Sodium Potassium Chloride Carbon Dioxide 39 H BUN 22 H Creatinine Glucose 134 H POC Glucose 139 H Lactic Acid Calcium Phosphorus Magnesium Total Bilirubin AST ALT Ammonia Lactate Dehydrogenase Total Creatine Kinase CK-MB (CK-2) Troponin T C-Reactive Protein NT-Pro-B Natriuret Pep Total Protein Albumin 3.0 L Triglycerides TSH Arterial Blood Glucose Arterial Blood Ionized Calcium Urine pH Urine WBC (Auto) Urine Creatinine 11/18/20 11/18/20 11/18/20 11:20 13:44 16:46 WBC RBC Hgb Hct RDW Lymph % (Auto) [place] % (Auto) Eos % (Auto) Lymph # (Auto) [place] # (Auto) Eos # (Auto) Seg Neutrophils % Lymphocytes % (Manual) Monocytes % (Manual) Seg Neutrophils # Seg Neutrophils # Man Lymphocytes # (Manual) Monocytes # (Manual) D-Dimer Heparin Anti-Xa Level ABG pH POC ABG pCO2 POC ABG pO2 ABG pO2 ABG HCO3 ABG O2 Saturation ABG Base Excess ABG Hemoglobin ABG Oxyhemoglobin ABG Sodium ABG Potassium ABG Chloride ABG Glucose VBG pH Oxyhemoglobin Carboxyhemoglobin Sodium Potassium Chloride Carbon Dioxide BUN Creatinine Glucose POC Glucose 136 H 121 H Lactic Acid Calcium Phosphorus Magnesium Total Bilirubin AST ALT Ammonia Lactate Dehydrogenase Total Creatine Kinase CK-MB (CK-2) Troponin T C-Reactive Protein 4.40 H NT-Pro-B Natriuret Pep Total Protein Albumin Triglycerides TSH Arterial Blood Glucose Arterial Blood Ionized Calcium Urine pH Urine WBC (Auto) Urine Creatinine 11/18/20 11/19/20 11/19/20 23:47 04:18 04:18 WBC RBC 3.15 L Hgb 9.1 L Hct 28.7 L RDW 15.7 H Lymph % (Auto) [place] % (Auto) 12.8 H Eos % (Auto) 5.0 H Lymph # (Auto) 1.1 L [place] # (Auto) Eos # (Auto) Seg Neutrophils % Lymphocytes % (Manual) Monocytes % (Manual) Seg Neutrophils # Seg Neutrophils # Man Lymphocytes # (Manual) Monocytes # (Manual) D-Dimer Heparin Anti-Xa Level ABG pH POC ABG pCO2 POC ABG pO2 ABG pO2 ABG HCO3 ABG O2 Saturation ABG Base Excess ABG Hemoglobin ABG Oxyhemoglobin ABG Sodium ABG Potassium ABG Chloride ABG Glucose VBG pH Oxyhemoglobin Carboxyhemoglobin Sodium 146 H Potassium Chloride Carbon Dioxide 40 H BUN 23 H Creatinine Glucose 121 H POC Glucose 117 H Lactic Acid Calcium Phosphorus Magnesium Total Bilirubin AST ALT Ammonia Lactate Dehydrogenase Total Creatine Kinase CK-MB (CK-2) Troponin T C-Reactive Protein NT-Pro-B Natriuret Pep Total Protein Albumin 3.1 L Triglycerides TSH Arterial Blood Glucose Arterial Blood Ionized Calcium Urine pH Urine WBC (Auto) Urine Creatinine 11/19/20 11/19/20 05:41 12:00 WBC RBC Hgb Hct RDW Lymph % (Auto) [place] % (Auto) Eos % (Auto) Lymph # (Auto) [place] # (Auto) Eos # (Auto) Seg Neutrophils % Lymphocytes % (Manual) Monocytes % (Manual) Seg Neutrophils # Seg Neutrophils # Man Lymphocytes # (Manual) Monocytes # (Manual) D-Dimer Heparin Anti-Xa Level ABG pH POC ABG pCO2 POC ABG pO2 ABG pO2 ABG HCO3 ABG O2 Saturation ABG Base Excess ABG Hemoglobin ABG Oxyhemoglobin ABG Sodium ABG Potassium ABG Chloride ABG Glucose VBG pH Oxyhemoglobin Carboxyhemoglobin Sodium Potassium Chloride Carbon Dioxide BUN Creatinine Glucose POC Glucose 147 H 130 H Lactic Acid Calcium Phosphorus Magnesium Total Bilirubin AST ALT Ammonia Lactate Dehydrogenase Total Creatine Kinase CK-MB (CK-2) Troponin T C-Reactive Protein NT-Pro-B Natriuret Pep Total Protein Albumin Triglycerides TSH Arterial Blood Glucose Arterial Blood Ionized Calcium Urine pH Urine WBC (Auto) Urine Creatinine Allied health notes reviewed: nursing
[2020-11-19] MEDS: LORazepam 2 MG/ML VIAL IV PRN (17:54)
[2020-11-19] MEDS: QUEtiapine 200 MG TAB PO SCH (22:01)
[2020-11-19] MEDS: ACETAMINOPHEN 325 MG TAB PO PRN (22:04)
[2020-11-20] MEDS: cloNIDine 0.2 MG TAB PO SCH ×3 (03:15→20:57)
[2020-11-20] MEDS: ACETAMINOPHEN 325 MG TAB PO PRN ×2 (06:34→20:58)
[2020-11-20] MEDS: hydrALAZINE 100 MG TAB PO SCH ×3 (06:34→21:03)
[2020-11-20] MEDS: GLYCOPYRROLATE 1 MG TAB PO SCH ×3 (06:34→21:00)
[2020-11-20 07:58] LABS: Basophils % (Auto) 0.6 % (0.0-1.8); Eosinophils # (Auto) 0.3 K/mm3 (0.0-0.4); Eosinophils % (Auto) 4.4 % (0.0-4.3); Hemoglobin 8.7 gm/dl (11.8-15.2); Lymphocytes # (Auto) 0.9 K/mm3 (1.2-5.4); Lymphocytes % (Auto) 11.6 % (13.4-35.0); Mean Corpuscular HGB Conc 32 % (32-34); Mean Corpuscular Volume 92 fl (84-94); Monocytes # (Auto) 0.7 K/mm3 (0.0-0.8); Platelet Count 231 K/mm3 (140-440); Red Blood Count 2.93 M/mm3 (3.65-5.03); Red Cell Distribution Width 15.8 % (13.2-15.2)
[2020-11-20 08:27] LABS: Alanine Aminotransferase 10 units/L (7-56); Albumin 2.8 g/dL (3.9-5); BUN/Creatinine Ratio 26; Blood Urea Nitrogen 26 mg/dL (9-20); Calcium 8.7 mg/dL (8.4-10.2); Hemolysis Index 1
--- NOTE | 2020-11-20 09:23 | Progress Note ---
Assessment and Plan Cultures: SARS CoV2 PCR: negative. 10/10/2020 blood culture: No growth 10/10/2020 ET aspirate culture: Usual respiratory antonio 10/11/2020 urine culture: no growth 10/18/2020 blood culture: No growth today 10/18/2020 tracheal aspirate date: MRSA 10/20/2020 right nare MRSA 11/16/2020 tracheal aspirate: MRSA A/P: 55-year-old male with hypertension, asthma, obesity came into the emergency room after receiving the Covid vaccine and passing out in the car at the emergency room bay. Patient was found to be unresponsive with no pulse, ACLS was initiated, prolonged complicated hospitalization, now s/p trach, PEG. He comp leted treatment for MRSA pneumonia as well as other empiric abx: #Low-grade fevers, tracheal aspirate positive for MRSA: No significant pneumonia noted on chest x-ray. Tracheobronchitis is possible. 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 Procalcitonin 0.22 #Acute respiratory failure: Status post trach #Urine tox screen positive for THC #Acute encephalopathy: Anoxic brain injury Recs: -procal is low, continue IV vancomycin, complete 5 days of therapy as treatment for tracheobronchitis -overall guarded prognosis ID will sign off. Please call with questions. Jose Marquez MD, FACP [facility] ([facility] O: [phone] F: [phone] Subjective Date of service: 11/20/20 Principal diagnosis: Cardiac arrest; Septic Shock; Ac. hypoxemic & hypercapnic resp failure; MOE Interval history: Patient is afebrile. Lying in bed, restless. Copious respiratory secretions. Objective - Exam Narrative Exam: Physical Exam: Constitutional: encephalopathic, lying in bed Head, Ears, Nose: Normocephalic, atraumatic. External ears, nose normal. Eyes: Conjunctivae/corneas clear. No icterus. No ptosis. Neck: trach + Cardiovascular: S1, S2 + Respiratory: b/l rhonchi + GI: Soft, bowel sounds +, G tube + Musculoskeletal: no edema Skin: No rash or abscess Hem/Lymphatic: No palpable cervical or supraclavicular nodes. No lymphangitis Psych: restless in bed Neurological: doesn't follow commands - Constitutional Vitals: Vital Signs Temp Pulse Resp BP Pulse Ox 97.8 F 77 21 114/59 98 11/20/20 03:51 11/20/20 08:00 11/20/20 08:00 11/20/20 08:00 11/20/20 08:00 Temperature -Last 24 Hours Temperature 97.8 F Temperature 98.8 F Temperature 99.1 F - Labs CBC & Chem 7: 11/20/20 07:30 11/20/20 07:30 Labs: Abnormal lab results 11/19/20 11/19/20 11/19/20 Range/Units 10:31 12:00 17:40 RBC (3.65-5.03) M/mm3 Hgb (11.8-15.2) gm/dl Hct (35.5-45.6) % RDW (13.2-15.2) % Lymph % (Auto) (13.4-35.0) % [place] % (Auto) (0.0-7.3) % Eos % (Auto) (0.0-4.3) % Lymph # (Auto) (1.2-5.4) K/mm3 Seg Neutrophils % (40.0-70.0) % Carbon Dioxide (22-30) mmol/L BUN (9-20) mg/dL Glucose (75-100) mg/dL POC Glucose 139 H 130 H 165 H (70-105) mg/dL Albumin (3.9-5) g/dL 11/19/20 11/20/20 11/20/20 Range/Units 23:39 04:55 07:30 RBC 2.93 L (3.65-5.03) M/mm3 Hgb 8.7 L (11.8-15.2) gm/dl Hct 27.0 L (35.5-45.6) % RDW 15.8 H (13.2-15.2) % Lymph % (Auto) 11.6 L (13.4-35.0) % [place] % (Auto) 10.0 H (0.0-7.3) % Eos % (Auto) 4.4 H (0.0-4.3) % Lymph # (Auto) 0.9 L (1.2-5.4) K/mm3 Seg Neutrophils % 73.4 H (40.0-70.0) % Carbon Dioxide (22-30) mmol/L BUN (9-20) mg/dL Glucose (75-100) mg/dL POC Glucose 133 H 124 H (70-105) mg/dL Albumin (3.9-5) g/dL 11/20/20 Range/Units 07:30 RBC (3.65-5.03) M/mm3 Hgb (11.8-15.2) gm/dl Hct (35.5-45.6) % RDW (13.2-15.2) % Lymph % (Auto) (13.4-35.0) % [place] % (Auto) (0.0-7.3) % Eos % (Auto) (0.0-4.3) % Lymph # (Auto) (1.2-5.4) K/mm3 Seg Neutrophils % (40.0-70.0) % Carbon Dioxide 41 H* (22-30) mmol/L BUN 26 H (9-20) mg/dL Glucose 139 H (75-100) mg/dL POC Glucose (70-105) mg/dL Albumin 2.8 L (3.9-5) g/dL
[2020-11-20] MEDS: QUEtiapine 100 MG TAB PO SCH (10:19)
[2020-11-20] MEDS: QUEtiapine 25 MG TAB PO SCH (10:19)
[2020-11-20] MEDS: levETIRAcetam 500 MG/5 ML ORAL LIQD PO SCH ×2 (10:22→21:00)
[2020-11-20] MEDS: FUROSEMIDE 20 MG TAB PO SCH (10:23)
[2020-11-20] MEDS: LORazepam 2 MG/ML VIAL IV PRN ×3 (10:23→19:17)
[2020-11-20] MEDS: POLYETHYLENE GLYCOL 3350 17 GM POWDER PO SCH (10:23)
[2020-11-20] MEDS: amLODIPine 10 MG TAB PO SCH (10:24)
[2020-11-20] MEDS: DOCUSATE SODIUM 100 MG/10 ML ORAL LIQD PO SCH ×2 (10:24→21:06)
[2020-11-20] MEDS: LANSOPRAZOLE 30 MG SOLUTAB FEEDTUBE SCH ×2 (10:25→21:04)
[2020-11-20] MEDS: HEPARIN 5,000 UNIT/1 ML VIAL SUB-Q SCH ×2 (10:25→21:00)
[2020-11-20] MEDS: METOPROLOL TARTRATE 50 MG TAB PO SCH ×3 (10:27→20:57)
[2020-11-20] MEDS ORDERED: amLODIPine 10 MG TAB PO SCH (11:52)
--- NOTE | 2020-11-20 11:58 | Progress Note ---
Subjective Date of service: 11/20/20 Principal diagnosis: Cardiac arrest; Septic Shock; Ac. hypoxemic & hypercapnic resp failure; MOE Interval history: This is a 55-year-old male with hypertension, asthma, obesity who was admitted on 10/10 after cardiac arrest x2 (supposedly after COVID-19 vaccine injection), sepsis, right-sided pneumonia, NSTEMI type II, acute heart failure, acute hypoxic respiratory failure, acute kidney injury and anoxic brain injury. MRSA in tracheal aspirate./Possible colonization Tracheostomy tube changed ID note reviewed Continue IV vancomycin x5 days ID signed off s/p multiple Cardiac Arrests Continue tube feedings Continue present medications s/p right-sided pneumonia MRSA in tracheal aspirate Repeat tracheal aspirate from 11/16 is positive for MRSA Rule out active infection versus colonization Completed linezolid Per recommendations of ID, PICC line needs to be removed and a new PICC line placed However PICC team was unable to place a PICC line or even a peripheral line Consult placed with vascular surgery and discussed with Dr. Talbert At this time he does not recommend any new PICC line and wants to monitor as the patient is afebrile and also tracheal aspirate is positive for MRSA and does not have MRSA bacteremia. Vascular note reviewed NSTEMI type II Continue present medications Acute heart failure Afib/Aflutter Rate controlled Continue management per cardiology recommendations Acute hypoxic respiratory failure Status post tracheostomy On trach collar Patient is on 8 L and 35% FiO2 via trach Oxygen saturation is 96 to 97% Acute kidney injury (improved) HTN Poorly controlled Continue amlodipine , metoprolol , hydralazine and clonidine via PEG tube Obesity Seizure disorder Continue Kera -Infectious disease, CCM, GI, nephrology, cardiology, surgery consulted, appreciate recommendations -s/p Antibiotic therapy -10/18 recultured (blood/sputum/nasal discharge and urinalysis), tracheal aspirate with MRSA -S/p Linezolid -Continue antihypertensive regimen -s/p IV amiodarone for A. fib/a flutter now on p.o. beta-shital -Trend CBC, BMP, LFT -trach/peg 10/27 -Mucomyst -Keppra -Avoid nephrotoxic medications, strict intake and output, renal ultrasound shows no obstruction -10/10 echocardiogram shows left internal systolic function normal, moderate concentric left ventricle hypertrophy, mild to side diastolic dysfunction, LVEF 55 to 60% with no pericardial effusion -Bilateral lower extremity Doppler ultrasound negative for DVT/SVT which shows bilateral popliteal cysts -MRI Brain shows restricted diffusion and increased T2 signal cerebral cortex which can be seen in the setting of anoxic brain injury and/ or status epileptic us. -Repeat EEG shows significant generalized slowing compatible with to moderate severe diffuse neuropathy recently compatible with anoxic/ischemic encephalopathy -Will get sputum cultures and chest xray as he has thick secretions and Temp >100F. GI/DVT prophylaxis: SCDs to bilateral lower extremities while in bed, PPI, Heparin subq Dispo: retirement facility versus LTAC History Interval history: This is a 55-year-old male with hypertension, asthma, obesity in the emergency by presented to the emergency department on 10/10 after receiving a Covid vaccine being found unresponsive in his car in the emergency room bay with no pulse and ACLS protocol was initiated from his car to emergency room #21 where it was continued. Patient was intubated after ROSC was achieved and a central line was placed and the patient was initiated on pressors. In the emergency room patient seems to have seizure-like activity and then collapsed and was unresponsive with no palpable pulse and ACLS was again initiated patient with achievement of ROSC. Patient again coded with ACLS protocol in the CT room. Upon arrival to the ICU patient again coded and ROSC was achieved and he was placed on epinephrine, Lasix, heparin and sodium bicarbonate drip and sedated with propofol. An NG tube was placed, A-line was placed. Patient was admitted to the hospitalist service with consult to CCM, nephrology, infectious disease and cardiology. 10/11: Patient COVID-19 PCR is pending and he remains on mechanical ventilation, examination on assist control 400/30/12/0.95. Patient is scheduled for an echocardiogram and we will obtain bilateral lower extremity Doppler ultrasound given elevated D-dimer. Patient was supposed to have a CTA chest when he coded yesterday. We will begin trickle feeding. This morning patient was on a heparin drip and was noted to have bloody drainage from his NG tube. Heparin drip was discontinued. 10/12: Patient remains on propofol and Lasix drip at the time my examination and he is on assist control 400/25/12/0.60. Patient is hypokalemic this morning which was repleted. Nephrology discontinued Lasix drip and Diamox. Patient is hypertensive and has been started on hydralazine and beta-shital IV. He has been titrated off his vasopressors since yesterday. Vancomycin discontinued. Patient is currently on cefepime and azithromycin. 10/13: Sedation vacation attempted today and patient was not responsive to verbal or painful stimuli, does not track or focus or follow commands. This morning the patient has some respiratory alkalosis on ABG, hypernatremia and metabolic alkalosis on BMP. His kidney functions has improved slightly. Patient still has leukocytosis and infectious disease was like to continue antibiotic therapy. GI evaluated the patient yesterday and started the patient on PPI does not plan to scope at this time. At the time my examination patient assist-control 400/20/12/0.40 and sedated on propofol at 20. 10/14: GI has recommended a CT abdomen since there is increased output from OG tube and an MRI brain without contrast has been ordered per neurology recommendations. EEG is pending and the patient has been started on Keppra per neurology.. Nutrition has been consulted for initiation of parenteral nutrition. Patient remains sedated with propofol and his hypernatremia, leukocytosis, acute kidney injury and metabolic alkalosis is improving. Patient has hypokalemia today which was repleted. At the time of my examination patient was on assist control 400/14/10/0.40 and CCM has dropped his rate to 12 and PEEP to 8. We have labs ordered for a.m. He was given a clonidine patch given persistent hypertension and he remains on D5 water per nephrology. 10/15: This morning patient was started to have a low-grade fever and he will continue antibiotic therapy per infectious disease. He will remove Tuttle catheter today and place a condom cath. Patient's renal function is worsening with a BUN/creatinine of 57/2.4 today and he has hyperphosphatemia at 5.2. This morning the time my examination patient is sedated on fentanyl and has TPN infusing. He is on assist control 400/12/8/0.35. Per GI we will start trial of tube feedings initiation has been reconsulted for orders. 10/18: Patient was febrile overnight and infectious disease has recultured (blood/sputum/right nostril culture) and sent in urinalysis. Cefepime was extended due to high fever and was started on vancomycin. Tube feeding is at goal and we will discontinue his parenteral nutrition. Patient is unable to ob tain his MRI due to increased hypoxia and nasal secretions. He will be started on CPAP trials today. This time I examination patient was sedated on fentanyl and had PPN running at 42. His renal function tests have worsened and now has hyperchloremia. Hypernatremia has resolved. 10/19: Patient's T-max was 100.2 and he was pancultured yesterday, remains on antibiotic therapy and still has copious drainage from his nostrils. Patient still has leukocytosis however his/creatinine improved slightly to 3.1 from 3.3. Patient's urinalysis from yesterday shows pyuria. Patient's tracheal aspirate from yesterday grew Staph aureus. Patient is on cefepime and vancomycin. 10/20: This morning at the time my examination patient was CPAP trial of 04/19 and his T-max was 100.9. Patient sedated on fentanyl at 2 just received IV push fentanyl for tachycardia. Today his creatinine is 2.8 from 3.1 yesterday. Infectious disease has stopped cefepime and vancomycin and started linezolid and MRSA PCR is pending. Today removed his NG tube and replaced it with OG tube. We will keep the patient normal saline at 75 mL's per hour for 3 L. Patient developed A. fib/a flutter overnight and cardiology has increased his Lopressor and IV amiodarone. We requested neurology evaluation today. 10/21: Cardiology we will increase Lopressor to 3 times daily and discontinue his amiodarone drip. Infectious disease would like a sinus CT when feasible however patient did have a moment of desatting earlier this week when we attempted MRI brain. And again yesterday when we attempted a "trial run" with positioning at bedside Patient is on linezolid for 10 days per ID. 10/22/20; patient was seen and evaluated this morning, patient had low-grade fever overnight. Patient is on Lopressor per cardiology recommendation. Patient did not follow commands, no improvement in mental status. Evaluated by neurology yesterday and neurology once MRI or CAT scan but cannot be done because patient desats when he lies flat. Patient is on linezolid per ID recommendation. Continue NG tube feeding. Continue with Keppra. Patient is on assist control with PEEP of 6. Management plan was discussed with his yesterday. 10/23/2020; patient is on Zyvox for positive MRSA from tracheal aspirate and nasal secretion culture. Patient's mentation did not improve and does not follow commands. He was reevaluated by neurology and recommend MRI once patient is able to tolerate. MRI could not be done, CT scan could not be done because the patient could not lie flat. Clinically patient looks like she has anoxic encephalopathy. Patient is on NG tube feeding and on mechanical ventilation. Patient is on Keppra. Management plan was discussed with his . 10/24: This morning the patient is on AC TV 400,R 16, Peep 6 and FiO2 of 30% and sedated on 1mcg of Fentayl. He is hypernatremic and his kidney function tests have slightly improved. RN will attempt to obtain MRI Brain today since the patient was able to tolerate a "trial run" of being flat. [facility] plans to resume CPAP trials once MRI obtained. 10/25: This morning the time of examination patient was on assist control tidal volume 400, rate 16, PEEP 6, FiO2 30% and he is currently on CPAP. His MRI brain finding is consistent with status epilepticus or anoxic brain injury. Patient is EEG pending. No acute overnight events reported. 10/26: Patient has been on a CPAP trial 14/6 which she has been tolerating. Surgery was consulted for trach/PEG. Patient's hypernatremia and hyperchloremia slightly better as well as his kidney functions. He has received cardiac clearance for his trach and PEG. No acute events reported overnight. 10/27: At the time my examination patient was on CPAP trial 15/6 and 30% FiO2. Patient's electrolyte abnormalities were improving and sources kidney function. His T-max overnight was 99.3 and he remains on linezolid. No acute events reported overnight. 10/28: Yesterday patient had a trach and PEG placed. Patient remains n.p.o. as he has not been cleared by surgery to resume p.o. intake. Today he has slight leukocytosis which is likely reactive, hyponatremia, metabolic alkalosis however his kidney function continues to improve. No acute events overnight. 10/29: Plan to start tube feeding today, patient remains on mechanical ventilation with trach tube. Remains comatose without any change in mental status. Called and updated. 10/30: Vitals stable, patient remains on trach tube with ventilator. Tolerating tube feeding, otherwise clinically unchanged. Continue to provide supportive care and wean off from vent as tolerated. 10/31: No acute events reported overnight. Patient is CPAP at the time my examination however he will be tried on trach collar and we will obtain an ABG within 2 hours. 11/01. Patient is on a trach collar at 35% FiO2, he was reported, patient received Lasix and will obtain an ABG at 2100. dr. Uribe updated his and his mother is at bedside visiting him. 11/02. Patient was rested on assist control due to "tube feedings" endotracheal tube however CXR looks mild atelectasis rather than pneumonia. [facility] has given the patient another dose of Lasix and will obtain a CXR in the a.m. Patient remains with low-grade fever and we will resume daily SBT as tolerated. We will obtain a.m. labs and resume tube feedings. 11/03: Overnight the patient was rested on assist control and this afternoon he received CPAP trials. Patient's CXR looks pulmonary edema and he received additional 20 mg of Lasix today and tomorrow. Dr. Uribe updated the patient's family via phone today and they do not wish to change his code status. Patient's Robinul and scopolamine was decreased. 11/04: Patient was started on Mucomyst due to thick secretion, will continue gentle diuresis and again began T-piece trials. Pa this time my examination he was on CPAP trial 10 and was rested overnight, assist control. According to documentation patient rested on CPAP trial yesterday for approximately 4-1/2 hours. No acute events reported overnight. 11/05 patient improved with Mucomyst. Attempted weaning to begin T-piece trial. Physical examination consistent with anoxia 11/06. No new events over p.m. Secretions appear to be controlled. Updated family today. All questions and concerns answered to family satisfaction. 11/07: T-piece trials to resume. No acute events overnight. Continue current care. PT/OT consult. Transfer to [facility]. 11/09/2020. No new issues. Continue trach care, secretion control and airway management. Continue tube feedings which the patient is tolerating. Gastrostomy tube care. 11/11: Patient has remained on T-piece for 24 hours and he will be transferred to the floor. He is restarted on Mucomyst today per [facility]. 11/12: The patient was transferred to the floor yesterday and remained stable on T-piece. Continue tracheostomy care, secretion control and airway management. Continue Mucomyst. -10/24 MRI Brain shows restricted diffusion and increased T2 signal cerebral cortex which can be seen in the setting of anoxic brain injury and/ or status epilepticus. -10/26 EEG shows significant generalized slowing compatible with to moderate severe diffuse neuropathy recently compatible with anoxic/ischemic encephalopathy 11/13: Patient remains on T-piece with oxygen at 8 L/min and saturations of 97%. Continue tracheostomy care secretion control and airway management. Gastrostomy tube care. Tube feedings with aspiration precaution. 11/14: Patient with an episode yesterday evening of tachypnea and desaturation. Also, patient noted to have distended abdomen/bladder which is likely causing respiratory distress. Tuttle was placed for urinary retention. ABG revealed pH 7.3, PCO2 68 and PO2 of 101. Pulmonology made no changes. Patient still on T- piece at 10 L/min with FiO2 35%. Continue tracheostomy care secretion control and airway management. Gastrostomy tube care. Tube feedings with aspiration precaution. 11/15. Has thick secretions from the tracheostomy. Remains on 6 L of oxygen. Tuttle was placed yesterday for distended bladder. 11/16. Not responsive. Temp spikes noted - 100.2F. Will get sputum culture. Continue oxygen supplementation. Needs placement. Discussed with patients spouse today. 11/17. Waiting for placement. Has [employer] insurance. He remains unresponsive. Temp 99.7. Chest xray, sputum culture pending. 11/18 patient is awake, confused, nonverbal and does not follow simple commands, bilateral wrist restraints, lab results reviewed, chart and all interdisciplinary notes reviewed. Discussed with ID Dr. Marquez to reconsult on the patient 11/19 patient earlier this morning went into respiratory arrest. He was successfully resuscitated. Tracheostomy tube changed. Actively suctioned. Stat chest x-ray were was ordered. Called patient's to discuss his CODE STATUS. She wants me to call her back in about 10 minutes. Patient remains unresponsive ID note reviewed. Poor prognosis. 11/20 resting comfortably, not in distress, lab results reviewed, I had extensive multiple discussions with patient's and patient's mother. Mother wants patient to be a full code and do everything possible to keep him alive Objective - Constitutional Vitals: Vital Signs - 12hr 11/20/20 11/20/20 11/20/20 00:00 00:20 01:00 Temperature 98.8 F Pulse Rate 74 74 71 Pulse Rate [ From Monitor] Respiratory 22 24 Rate Blood Pressure 107/56 100/49 O2 Sat by Pulse 100 99 Oximetry O2 Sat by Pulse Oximetry [ Assessment] 11/20/20 11/20/20 11/20/20 02:01 03:00 03:15 Temperature Pulse Rate 73 69 69 Pulse Rate [ 69 From Monitor] Respiratory 22 22 Rate Blood Pressure 110/59 98/42 98/42 O2 Sat by Pulse 100 100 Oximetry O2 Sat by Pulse Oximetry [ Assessment] 11/20/20 11/20/20 11/20/20 03:45 03:51 04:00 Temperature 97.8 F Pulse Rate 68 69 Pulse Rate [ From Monitor] Respiratory 21 Rate Blood Pressure 105/46 O2 Sat by Pulse 100 Oximetry O2 Sat by Pulse Oximetry [ Assessment] 11/20/20 11/20/20 11/20/20 04:34 05:00 06:00 Temperature Pulse Rate 70 75 Pulse Rate [ From Monitor] Respiratory 20 22 Rate Blood Pressure 112/48 112/48 O2 Sat by Pulse 100 99 Oximetry O2 Sat by Pulse 99 Oximetry [ Assessment] 11/20/20 11/20/20 11/20/20 06:34 07:00 08:00 Temperature Pulse Rate 76 77 Pulse Rate [ 76 From Monitor] Respiratory 19 19 21 Rate Blood Pressure 140/68 114/59 O2 Sat by Pulse 99 98 Oximetry O2 Sat by Pulse Oximetry [ Assessment] 11/20/20 11/20/20 11/20/20 08:20 09:00 10:01 Temperature Pulse Rate 89 102 H Pulse Rate [ From Monitor] Respiratory 16 17 Rate Blood Pressure 153/82 155/77 O2 Sat by Pulse 98 100 100 Oximetry O2 Sat by Pulse 98 Oximetry [ Assessment] 11/20/20 11:01 Temperature Pulse Rate 80 Pulse Rate [ From Monitor] Respiratory 27 H Rate Blood Pressure 98/45 O2 Sat by Pulse 96 Oximetry O2 Sat by Pulse Oximetry [ Assessment] General appearance: Present: no acute distress, obese, other (Eyes open but does not follow simple commands) - EENT Eyes: PERRL - Neck Neck: supple - Respiratory Respiratory: bilateral: diminished, rhonchi - Cardiovascular Rhythm: regular Heart Sounds: Present: S1 & S2 Extremity abnormal: edema (Trace leg edema) - Gastrointestinal General gastrointestinal: Present: soft, non-tender, other (Has a PEG tube) Rectal Exam: deferred - Genitourinary Male genitourinary: deferred - Neurologic Neurologic: other - Labs CBC & Chem 7: 11/20/20 07:30 11/20/20 07:30 Labs: Abnormal lab results 11/19/20 11/19/20 11/19/20 Range/Units 10:31 12:00 17:40 RBC (3.65-5.03) M/mm3 Hgb (11.8-15.2) gm/dl Hct (35.5-45.6) % RDW (13.2-15.2) % Lymph % (Auto) (13.4-35.0) % [place] % (Auto) (0.0-7.3) % Eos % (Auto) (0.0-4.3) % Lymph # (Auto) (1.2-5.4) K/mm3 Seg Neutrophils % (40.0-70.0) % Carbon Dioxide (22-30) mmol/L BUN (9-20) mg/dL Glucose (75-100) mg/dL POC Glucose 139 H 130 H 165 H (70-105) mg/dL Albumin (3.9-5) g/dL 11/19/20 11/20/20 11/20/20 Range/Units 23:39 04:55 07:30 RBC 2.93 L (3.65-5.03) M/mm3 Hgb 8.7 L (11.8-15.2) gm/dl Hct 27.0 L (35.5-45.6) % RDW 15.8 H (13.2-15.2) % Lymph % (Auto) 11.6 L (13.4-35.0) % [place] % (Auto) 10.0 H (0.0-7.3) % Eos % (Auto) 4.4 H (0.0-4.3) % Lymph # (Auto) 0.9 L (1.2-5.4) K/mm3 Seg Neutrophils % 73.4 H (40.0-70.0) % Carbon Dioxide (22-30) mmol/L BUN (9-20) mg/dL Glucose (75-100) mg/dL POC Glucose 133 H 124 H (70-105) mg/dL Albumin (3.9-5) g/dL 11/20/20 Range/Units 07:30 RBC (3.65-5.03) M/mm3 Hgb (11.8-15.2) gm/dl Hct (35.5-45.6) % RDW (13.2-15.2) % Lymph % (Auto) (13.4-35.0) % [place] % (Auto) (0.0-7.3) % Eos % (Auto) (0.0-4.3) % Lymph # (Auto) (1.2-5.4) K/mm3 Seg Neutrophils % (40.0-70.0) % Carbon Dioxide 41 H* (22-30) mmol/L BUN 26 H (9-20) mg/dL Glucose 139 H (75-100) mg/dL POC Glucose (70-105) mg/dL Albumin 2.8 L (3.9-5) g/dL HEART Score - HEART Score EKG: Non-specific Age: 45-65 Troponin: Troponin T 0.125 ng/mL (0.00-0.029) H* D 10/12/20 04:00 Troponin: 1-3x normal limit - Critical Actions Critical Actions: 4-6 pts:12-16.6% risk of adverse cardiac event. Should be admitted
[2020-11-20] MEDS: amLODIPine 5 MG TAB PO SCH (14:13)
[2020-11-20] MEDS: VANCOMYCIN 2,000 MG in SODIUM CHLORIDE 0.9% 500 ML 500 ML IV SCH (14:19)
[2020-11-20] MEDS: MINOXIDIL 2.5 MG TAB PO SCH (15:47)
--- NOTE | 2020-11-20 19:33 | Progress Note ---
Assessment and Plan Cardiac arrest x3 with ROSC with anoxic injury Severe septic and cardiogenic shock Acute respiratory failure with hypoxia and hypercarbia s/p trach Acute pulmonary edema , resolved MOE (acute kidney injury) Lactic acidosis, severe metabolic acidosis, resolved Bilateral pneumonia, aspiration pneumonia Elevated troponins Oropharyngeal dysphagia s/p PEG -Continue with supplemental oxygen, titrate for target O2 sats 89-92% -Continue with airway clearance, secretion management with tracheostomy care -continue Scopolamine for secretion control, continue Robinul -ABG and CXR as clinically indicated. No indication for daily orders for ABG and CXR - continue mobility protocol, off loading, frequent turning per facility protocol to avoid pressure ulcers - prn gentle diuresis, while monitoring renal function and hemodynamics -Replete electrolytes as clinically indicated - continue Seroquel for agitation control - continue contact precautions re: MRSA - follow clinically re: fevers / WBC - Monitor hemodynamics closely - aspiration precautions - continue to avoid nephrotoxins - continue to avoid benzodiazepines, reduce the possibility of delirium - prn analgesia per CPOT score - Maintenance of sleep-wake cycle, avoid delirium - continue enteral nutritional support at goal rate as tolerated - VTE prophylaxis - PT/OT/ROM exercises - continue other care per attending / other consultants - discharge planning CONDITION: FAIR PROGNOSIS:FAIR CODE STATUS: FULL CODE Subjective Date of service: 11/20/20 Principal diagnosis: Cardiac arrest; Septic Shock; Ac. hypoxemic & hypercapnic resp failure; MOE Interval history: Patient is seen today for: Cardiac arrest with ROSC; Severe septic and cardiogenic shock; Acute respiratory failure with hypoxemia and hypercarbia; Ac addy pulmonary edema; MOE; Lactic acidosis; severe metabolic acidosis; Bilateral pneumonia; aspiration pneumonia; Elevated troponins Seen and examined at bedside; 24hour events reviewed; nursing and respiratory care staff consulted; no adverse overnight events reported to me; resting peacefully in bed , no fevers, no vomiting, no diarrhea, tolerating tube feedings Mental status changes persist, awake but not tracking, not obeying commands Transferred to [facility], s/p respiratory arrest thought to be secondary to mucous plug/secretions yesterday Remains on ATP, with moderate secretions Objective Vital Signs - 12hr 11/20/20 11/20/20 11/20/20 08:00 08:20 09:00 Pulse Rate 77 89 Respiratory 21 16 Rate Blood Pressure 114/59 153/82 O2 Sat by Pulse 98 98 100 Oximetry O2 Sat by Pulse 98 Oximetry [ Assessment] 11/20/20 11/20/20 11/20/20 10:01 11:00 11:01 Pulse Rate 102 H 80 Respiratory 17 20 27 H Rate Blood Pressure 155/77 98/45 O2 Sat by Pulse 100 99 96 Oximetry O2 Sat by Pulse Oximetry [ Assessment] 11/20/20 11/20/20 11/20/20 12:00 13:00 14:00 Pulse Rate 74 72 72 Respiratory 23 24 25 H Rate Blood Pressure 134/60 132/62 134/60 O2 Sat by Pulse 99 100 98 Oximetry O2 Sat by Pulse Oximetry [ Assessment] 11/20/20 11/20/20 11/20/20 15:00 16:00 17:00 Pulse Rate 71 69 67 Respiratory 19 25 H 22 Rate Blood Pressure 115/54 124/61 116/48 O2 Sat by Pulse 99 99 97 Oximetry O2 Sat by Pulse Oximetry [ Assessment] 11/20/20 11/20/20 17:43 18:00 Pulse Rate 70 72 Respiratory 23 Rate Blood Pressure 129/62 O2 Sat by Pulse 100 Oximetry O2 Sat by Pulse Oximetry [ Assessment] Constitutional: no acute distress, other (middle aged obese male with mildly increased respiratory efort at rest) Eyes: non-icteric ENT: oropharynx moist, oropharyngeal exudate pre (improved), other (midline tracheostomy, to ATP with moderate secretions-strong cough) Neck: supple, no lymphadenopathy, no JVD Effort: mildly labored Ascultation: Bilateral: clear, diminished breath sounds, rhonchi (scant) Percussion: Bilateral: not dull Cardiovascular: regular rate and rhythm, other (S1,S2) Gastrointestinal: normoactive bowel sounds, soft, non-tender, non-distended (protuberant) Integumentary: normal Extremities: no cyanosis, no edema, pulses normal, no ischemia or petechiae Neurologic: pupils equal and round, unable to assess, other (encephalopathic) Psychiatric: other (unable to assess re: AMS) CBC and BMP: 11/22/20 04:55 11/22/20 04:55 ABG, PT/INR, D-dimer: ABG ABG pH 7.374 (7.320-7.450) 11/13/20 16:43 POC ABG pCO2 68.4 mmHg (32.0-48.0) H 11/13/20 16:43 ABG pCO2 55.5 mm Hg 10/16/20 05:10 POC ABG pO2 101.9 mmHg (83-108) 11/13/20 16:43 ABG pO2 104.5 mm Hg (80.0-90.0) H 10/16/20 05:10 POC ABG HCO3 39.0 11/13/20 16:43 ABG O2 Saturation 97.8 (0-100) 11/13/20 16:43 PT/INR, D-dimer PT 13.5 Sec. (12.2-14.9) 10/28/20 07:00 INR 1.05 (0.87-1.13) 10/28/20 07:00 D-Dimer 679.5 ng/mlDDU (0-234) H 10/10/20 10:48 Abnormal lab findings: Abnormal Labs 10/10/20 10/10/20 10/10/20 10:46 10:46 10:46 WBC RBC Hgb Hct RDW Lymph % (Auto) [place] % (Auto) Eos % (Auto) Lymph # (Auto) [place] # (Auto) Eos # (Auto) Seg Neutrophils % Lymphocytes % (Manual) Monocytes % (Manual) Seg Neutrophils # Seg Neutrophils # Man Lymphocytes # (Manual) Monocytes # (Manual) D-Dimer Heparin Anti-Xa Level ABG pH POC ABG pCO2 POC ABG pO2 ABG pO2 ABG HCO3 ABG O2 Saturation ABG Base Excess ABG Hemoglobin ABG Oxyhemoglobin ABG Sodium ABG Potassium ABG Chloride ABG Glucose VBG pH Oxyhemoglobin Carboxyhemoglobin Sodium Potassium Chloride Carbon Dioxide BUN Creatinine Glucose POC Glucose Lactic Acid 13.60 H* Calcium Phosphorus Magnesium Total Bilirubin AST ALT Ammonia 214.0 H Lactate Dehydrogenase Total Creatine Kinase CK-MB (CK-2) Troponin T C-Reactive Protein NT-Pro-B Natriuret Pep Total Protein Albumin Triglycerides TSH 6.260 H Arterial Blood Glucose Arterial Blood Ionized Calcium Urine pH Urine WBC (Auto) Urine Creatinine 10/10/20 10/10/20 10/10/20 10:46 10:48 10:48 WBC RBC 5.28 H Hgb 15.5 H Hct 48.8 H RDW Lymph % (Auto) [place]comb % (Auto) Eos % (Auto) Lymph # (Auto) [place] # (Auto) Eos # (Auto) Seg Neutrophils % Lymphocytes % (Manual) 42.0 H Monocytes % (Manual) Seg Neutrophils # Seg Neutrophils # Man Lymphocytes # (Manual) Monocytes # (Manual) D-Dimer Heparin Anti-Xa Level ABG pH POC ABG pCO2 POC ABG pO2 ABG pO2 ABG HCO3 ABG O2 Saturation ABG Base Excess ABG Hemoglobin ABG Oxyhemoglobin ABG Sodium ABG Potassium ABG Chloride ABG Glucose VBG pH Oxyhemoglobin Carboxyhemoglobin Sodium Potassium 3.3 L Chloride 91.2 L Carbon Dioxide BUN Creatinine 1.8 H Glucose 231 H POC Glucose Lactic Acid Calcium Phosphorus Magnesium Total Bilirubin AST 60 H ALT 57 H Ammonia Lactate Dehydrogenase Total Creatine Kinase CK-MB (CK-2) Troponin T C-Reactive Protein NT-Pro-B Natriuret Pep 1187 H Total Protein 9.0 H Albumin Triglycerides TSH Arterial Blood Glucose Arterial Blood Ionized Calcium Urine pH Urine WBC (Auto) Urine Creatinine 10/10/20 10/10/20 10/10/20 10:48 10:48 10:48 WBC RBC Hgb Hct RDW Lymph % (Auto) [place] % (Auto) Eos % (Auto) Lymph # (Auto) [place] # (Auto) Eos # (Auto) Seg Neutrophils % Lymphocytes % (Manual) Monocytes % (Manual) Seg Neutrophils # Seg Neutrophils # Man Lymphocytes # (Manual) Monocytes # (Manual) D-Dimer 679.5 H Heparin Anti-Xa Level ABG pH POC ABG pCO2 POC ABG pO2 ABG pO2 ABG HCO3 ABG O2 Saturation ABG Base Excess ABG Hemoglobin ABG Oxyhemoglobin ABG Sodium ABG Potassium ABG Chloride ABG Glucose VBG pH 6.870 L* Oxyhemoglobin Carboxyhemoglobin Sodium Potassium Chloride Carbon Dioxide BUN Creatinine Glucose POC Glucose Lactic Acid Calcium Phosphorus Magnesium Total Bilirubin AST ALT Ammonia Lactate Dehydrogenase 386 H Total Creatine Kinase CK-MB (CK-2) Troponin T C-Reactive Protein NT-Pro-B Natriuret Pep Total Protein Albumin Triglycerides TSH Arterial Blood Glucose Arterial Blood Ionized Calcium Urine pH Urine WBC (Auto) Urine Creatinine 10/10/20 10/10/20 10/10/20 14:10 14:20 15:50 WBC RBC Hgb Hct RDW Lymph % (Auto) [place] % (Auto) Eos % (Auto) Lymph # (Auto) [place] # (Auto) Eos # (Auto) Seg Neutrophils % Lymphocytes % (Manual) Monocytes % (Manual) Seg Neutrophils # Seg Neutrophils # Man Lymphocytes # (Manual) Monocytes # (Manual) D-Dimer Heparin Anti-Xa Level ABG pH 7.175 L 7.247 L POC ABG pCO2 85.0 H POC ABG pO2 43.7 L ABG pO2 60.3 L ABG HCO3 32.0 H ABG O2 Saturation 86.1 L ABG Base Excess ABG Hemoglobin ABG Oxyhemoglobin 67.7 L ABG Sodium ABG Potassium ABG Chloride ABG Glucose 247 H VBG pH Oxyhemoglobin 84.4 L Carboxyhemoglobin Sodium Potassium Chloride Carbon Dioxide BUN Creatinine Glucose POC Glucose Lactic Acid 4.00 H* Calcium Phosphorus Magnesium Total Bilirubin AST ALT Ammonia Lactate Dehydrogenase Total Creatine Kinase CK-MB (CK-2) Troponin T C-Reactive Protein NT-Pro-B Natriuret Pep Total Protein Albumin Triglycerides TSH Arterial Blood Glucose 247 H Arterial Blood Ionized Calcium 4.4 L Urine pH Urine WBC (Auto) Urine Creatinine 10/10/20 10/10/20 10/10/20 15:50 16:22 18:18 WBC RBC Hgb Hct RDW Lymph % (Auto) [place] % (Auto) Eos % (Auto) Lymph # (Auto) [place] # (Auto) Eos # (Auto) Seg Neutrophils % Lymphocytes % (Manual) Monocytes % (Manual) Seg Neutrophils # Seg Neutrophils # Man Lymphocytes # (Manual) Monocytes # (Manual) D-Dimer Heparin Anti-Xa Level ABG pH 7.171 L POC ABG pCO2 96.6 H POC ABG pO2 55.3 L ABG pO2 ABG HCO3 ABG O2 Saturation ABG Base Excess ABG Hemoglobin ABG Oxyhemoglobin 81.4 L ABG Sodium ABG Potassium ABG Chloride ABG Glucose 115 H VBG pH Oxyhemoglobin Carboxyhemoglobin Sodium Potassium Chloride Carbon Dioxide BUN Creatinine Glucose POC Glucose 132 H Lactic Acid Calcium Phosphorus Magnesium Total Bilirubin AST ALT Ammonia Lactate Dehydrogenase Total Creatine Kinase 1192 H CK-MB (CK-2) 21.7 H Troponin T 0.377 H* D C-Reactive Protein NT-Pro-B Natriuret Pep Total Protein Albumin Triglycerides TSH Arterial Blood Glucose 115 H Arterial Blood Ionized Calcium Urine pH Urine WBC (Auto) Urine Creatinine 10/10/20 10/10/20 10/10/20 18:18 18:18 22:49 WBC 23.0 H RBC 5.12 H Hgb Hct RDW Lymph % (Auto) [place] % (Auto) Eos % (Auto) Lymph # (Auto) [place] # (Auto) Eos # (Auto) Seg Neutrophils % Lymphocytes % (Manual) 4.0 L Monocytes % (Manual) 9.0 H Seg Neutrophils # Seg Neutrophils # Man 13.8 H Lymphocytes # (Manual) 0.9 L Monocytes # (Manual) 2.1 H D-Dimer Heparin Anti-Xa Level ABG pH POC ABG pCO2 POC ABG pO2 ABG pO2 ABG HCO3 ABG O2 Saturation ABG Base Excess ABG Hemoglobin ABG Oxyhemoglobin ABG Sodium ABG Potassium ABG Chloride ABG Glucose VBG pH Oxyhemoglobin Carboxyhemoglobin Sodium 146 H Potassium Chloride Carbon Dioxide 34 H D BUN 27 H Creatinine 2.7 H Glucose 102 H POC Glucose Lactic Acid Calcium Phosphorus Magnesium Total Bilirubin AST 90 H ALT 66 H Ammonia Lactate Dehydrogenase Total Creatine Kinase CK-MB (CK-2) Troponin T 0.273 H* D C-Reactive Protein NT-Pro-B Natriuret Pep Total Protein Albumin Triglycerides TSH Arterial Blood Glucose Arterial Blood Ionized Calcium Urine pH Urine WBC (Auto) Urine Creatinine 10/11/20 10/11/20 10/11/20 02:00 02:00 02:00 WBC 17.3 H RBC Hgb Hct RDW Lymph % (Auto) 3.9 L [place]comb % (Auto) Eos % (Auto) Lymph # (Auto) 0.7 L [place] # (Auto) Eos # (Auto) Seg Neutrophils % 93.0 H Lymphocytes % (Manual) Monocytes % (Manual) Seg Neutrophils # 16.1 H Seg Neutrophils # Man Lymphocytes # (Manual) Monocytes # (Manual) D-Dimer Heparin Anti-Xa Level ABG pH POC ABG pCO2 POC ABG pO2 ABG pO2 ABG HCO3 ABG O2 Saturation ABG Base Excess ABG Hemoglobin ABG Oxyhemoglobin ABG Sodium ABG Potassium ABG Chloride ABG Glucose VBG pH Oxyhemoglobin Carboxyhemoglobin Sodium 149 H Potassium 3.3 L Chloride 95.3 L Carbon Dioxide 37 H BUN 29 H Creatinine 2.6 H Glucose POC Glucose Lactic Acid Calcium Phosphorus Magnesium Total Bilirubin AST 80 H ALT 59 H Ammonia Lactate Dehydrogenase Total Creatine Kinase CK-MB (CK-2) Troponin T 0.201 H* D C-Reactive Protein NT-Pro-B Natriuret Pep Total Protein Albumin 3.6 L Triglycerides TSH Arterial Blood Glucose Arterial Blood Ionized Calcium Urine pH Urine WBC (Auto) Urine Creatinine 10/11/20 10/11/20 10/11/20 03:51 08:35 11:15 WBC RBC Hgb Hct RDW Lymph % (Auto) [place] % (Auto) Eos % (Auto) Lymph # (Auto) [place] # (Auto) Eos # (Auto) Seg Neutrophils % Lymphocytes % (Manual) Monocytes % (Manual) Seg Neutrophils # Seg Neutrophils # Man Lymphocytes # (Manual) Monocytes # (Manual) D-Dimer Heparin Anti-Xa Level 0.22 L ABG pH 7.491 H POC ABG pCO2 57.6 H POC ABG pO2 ABG pO2 ABG HCO3 ABG O2 Saturation ABG Base Excess ABG Hemoglobin ABG Oxyhemoglobin ABG Sodium 150.0 H ABG Potassium 3.1 L ABG Chloride 96.0 L ABG Glucose 122 H VBG pH Oxyhemoglobin Carboxyhemoglobin Sodium Potassium Chloride Carbon Dioxide BUN Creatinine Glucose POC Glucose 151 H Lactic Acid Calcium Phosphorus Magnesium Total Bilirubin AST ALT Ammonia Lactate Dehydrogenase Total Creatine Kinase CK-MB (CK-2) Troponin T C-Reactive Protein NT-Pro-B Natriuret Pep Total Protein Albumin Triglycerides TSH Arterial Blood Glucose 122 H Arterial Blood Ionized Calcium 3.9 L Urine pH Urine WBC (Auto) Urine Creatinine 10/11/20 10/11/20 10/11/20 13:30 13:30 13:30 WBC 15.0 H RBC Hgb Hct RDW Lymph % (Auto) [place] % (Auto) Eos % (Auto) Lymph # (Auto) [place] # (Auto) Eos # (Auto) Seg Neutrophils % Lymphocytes % (Manual) Monocytes % (Manual) Seg Neutrophils # Seg Neutrophils # Man Lymphocytes # (Manual) Monocytes # (Manual) D-Dimer Heparin Anti-Xa Level ABG pH POC ABG pCO2 POC ABG pO2 ABG pO2 ABG HCO3 ABG O2 Saturation ABG Base Excess ABG Hemoglobin ABG Oxyhemoglobin ABG Sodium ABG Potassium ABG Chloride ABG Glucose VBG pH Oxyhemoglobin Carboxyhemoglobin Sodium Potassium Chloride Carbon Dioxide BUN Creatinine Glucose POC Glucose Lactic Acid Calcium Phosphorus Magnesium Total Bilirubin AST ALT Ammonia Lactate Dehydrogenase Total Creatine Kinase CK-MB (CK-2) Troponin T C-Reactive Protein NT-Pro-B Natriuret Pep Total Protein Albumin Triglycerides TSH Arterial Blood Glucose Arterial Blood Ionized Calcium Urine pH 9.0 H Urine WBC (Auto) 18.0 H Urine Creatinine 80.5 H 10/11/20 10/11/20 10/12/20 17:17 23:14 03:53 WBC RBC Hgb Hct RDW Lymph % (Auto) [place] % (Auto) Eos % (Auto) Lymph # (Auto) [place] # (Auto) Eos # (Auto) Seg Neutrophils % Lymphocytes % (Manual) Monocytes % (Manual) Seg Neutrophils # Seg Neutrophils # Man Lymphocytes # (Manual) Monocytes # (Manual) D-Dimer Heparin Anti-Xa Level ABG pH 7.545 H POC ABG pCO2 54.6 H POC ABG pO2 231.9 H ABG pO2 ABG HCO3 ABG O2 Saturation ABG Base Excess ABG Hemoglobin ABG Oxyhemoglobin 98.5 H ABG Sodium 150.5 H ABG Potassium 3.2 L ABG Chloride 96.0 L ABG Glucose 148 H VBG pH Oxyhemoglobin Carboxyhemoglobin Sodium Potassium Chloride Carbon Dioxide BUN Creatinine Glucose POC Glucose 121 H 135 H Lactic Acid Calcium Phosphorus Magnesium Total Bilirubin AST ALT Ammonia Lactate Dehydrogenase Total Creatine Kinase CK-MB (CK-2) Troponin T C-Reactive Protein NT-Pro-B Natriuret Pep Total Protein Albumin Triglycerides TSH Arterial Blood Glucose 148 H Arterial Blood Ionized Calcium 3.8 L Urine pH Urine WBC (Auto) Urine Creatinine 10/12/20 10/12/20 10/12/20 04:00 05:10 05:12 WBC 14.3 H RBC Hgb 11.6 L Hct 35.2 L RDW Lymph % (Auto) [place] % (Auto) Eos % (Auto) Lymph # (Auto) [place] # (Auto) Eos # (Auto) Seg Neutrophils % Lymphocytes % (Manual) Monocytes % (Manual) Seg Neutrophils # Seg Neutrophils # Man Lymphocytes # (Manual) Monocytes # (Manual) D-Dimer Heparin Anti-Xa Level ABG pH POC ABG pCO2 POC ABG pO2 ABG pO2 ABG HCO3 ABG O2 Saturation ABG Base Excess ABG Hemoglobin ABG Oxyhemoglobin ABG Sodium ABG Potassium ABG Chloride ABG Glucose VBG pH Oxyhemoglobin Carboxyhemoglobin Sodium 155 H Potassium 3.3 L Chloride 97.9 L Carbon Dioxide 47 H* D BUN 50 H Creatinine 3.4 H Glucose 146 H POC Glucose 137 H Lactic Acid Calcium 8.0 L Phosphorus Magnesium Total Bilirubin AST ALT Ammonia Lactate Dehydrogenase Total Creatine Kinase CK-MB (CK-2) Troponin T 0.125 H* D C-Reactive Protein NT-Pro-B Natriuret Pep Total Protein Albumin Triglycerides TSH Arterial Blood Glucose Arterial Blood Ionized Calcium Urine pH Urine WBC (Auto) Urine Creatinine 10/12/20 10/12/20 10/12/20 11:39 16:01 19:49 WBC RBC Hgb Hct RDW Lymph % (Auto) [place] % (Auto) Eos % (Auto) Lymph # (Auto) [place] # (Auto) Eos # (Auto) Seg Neutrophils % Lymphocytes % (Manual) Monocytes % (Manual) Seg Neutrophils # Seg Neutrophils # Man Lymphocytes # (Manual) Monocytes # (Manual) D-Dimer Heparin Anti-Xa Level ABG pH POC ABG pCO2 POC ABG pO2 ABG pO2 ABG HCO3 ABG O2 Saturation ABG Base Excess ABG Hemoglobin ABG Oxyhemoglobin ABG Sodium ABG Potassium ABG Chloride ABG Glucose VBG pH Oxyhemoglobin Carboxyhemoglobin Sodium 157 H Potassium 3.3 L Chloride Carbon Dioxide 47 H* BUN 52 H Creatinine 3.0 H Glucose 137 H POC Glucose 138 H 119 H Lactic Acid Calcium 8.0 L Phosphorus Magnesium Total Bilirubin AST ALT Ammonia Lactate Dehydrogenase Total Creatine Kinase CK-MB (CK-2) Troponin T C-Reactive Protein NT-Pro-B Natriuret Pep Total Protein Albumin Triglycerides TSH Arterial Blood Glucose Arterial Blood Ionized Calcium Urine pH Urine WBC (Auto) Urine Creatinine 10/12/20 10/13/20 10/13/20 23:37 02:28 04:52 WBC RBC Hgb Hct RDW Lymph % (Auto) [place] % (Auto) Eos % (Auto) Lymph # (Auto) [place] # (Auto) Eos # (Auto) Seg Neutrophils % Lymphocytes % (Manual) Monocytes % (Manual) Seg Neutrophils # Seg Neutrophils # Man Lymphocytes # (Manual) Monocytes # (Manual) D-Dimer Heparin Anti-Xa Level ABG pH 7.485 H POC ABG pCO2 57.1 H POC ABG pO2 ABG pO2 ABG HCO3 ABG O2 Saturation ABG Base Excess ABG Hemoglobin ABG Oxyhemoglobin ABG Sodium 152.4 H ABG Potassium ABG Chloride ABG Glucose 129 H VBG pH Oxyhemoglobin Carboxyhemoglobin Sodium 155 H Potassium Chloride Carbon Dioxide 45 H* BUN 52 H Creatinine 2.7 H Glucose 121 H POC Glucose 131 H Lactic Acid Calcium Phosphorus Magnesium 2.40 H Total Bilirubin AST ALT Ammonia Lactate Dehydrogenase Total Creatine Kinase CK-MB (CK-2) Troponin T C-Reactive Protein NT-Pro-B Natriuret Pep Total Protein Albumin Triglycerides 278 H TSH Arterial Blood Glucose 129 H Arterial Blood Ionized Calcium 4.1 L Urine pH Urine WBC (Auto) Urine Creatinine 10/13/20 10/13/20 10/13/20 04:52 05:13 11:37 WBC 14.7 H RBC Hgb 11.7 L Hct RDW 15.8 H Lymph % (Auto) [place] % (Auto) Eos % (Auto) Lymph # (Auto) [place] # (Auto) Eos # (Auto) Seg Neutrophils % Lymphocytes % (Manual) Monocytes % (Manual) Seg Neutrophils # Seg Neutrophils # Man Lymphocytes # (Manual) Monocytes # (Manual) D-Dimer Heparin Anti-Xa Level ABG pH POC ABG pCO2 POC ABG pO2 ABG pO2 ABG HCO3 ABG O2 Saturation ABG Base Excess ABG Hemoglobin ABG Oxyhemoglobin ABG Sodium ABG Potassium ABG Chloride ABG Glucose VBG pH Oxyhemoglobin Carboxyhemoglobin Sodium Potassium Chloride Carbon Dioxide BUN Creatinine Glucose POC Glucose 116 H 116 H Lactic Acid Calcium Phosphorus Magnesium Total Bilirubin AST ALT Ammonia Lactate Dehydrogenase Total Creatine Kinase CK-MB (CK-2) Troponin T C-Reactive Protein NT-Pro-B Natriuret Pep Total Protein Albumin Triglycerides TSH Arterial Blood Glucose Arterial Blood Ionized Calcium Urine pH Urine WBC (Auto) Urine Creatinine 10/13/20 10/14/20 10/14/20 17:50 03:45 04:46 WBC 11.1 H RBC Hgb Hct RDW 15.3 H Lymph % (Auto) [place] % (Auto) Eos % (Auto) Lymph # (Auto) [place] # (Auto) Eos # (Auto) Seg Neutrophils % Lymphocytes % (Manual) Monocytes % (Manual) Seg Neutrophils # Seg Neutrophils # Man Lymphocytes # (Manual) Monocytes # (Manual) D-Dimer Heparin Anti-Xa Level ABG pH POC ABG pCO2 59.6 H POC ABG pO2 ABG pO2 ABG HCO3 ABG O2 Saturation ABG Base Excess ABG Hemoglobin ABG Oxyhemoglobin ABG Sodium 151.4 H ABG Potassium 3.3 L ABG Chloride ABG Glucose 138 H VBG pH Oxyhemoglobin Carboxyhemoglobin 1.6 H Sodium Potassium Chloride Carbon Dioxide BUN Creatinine Glucose POC Glucose 140 H Lactic Acid Calcium Phosphorus Magnesium Total Bilirubin AST ALT Ammonia Lactate Dehydrogenase Total Creatine Kinase CK-MB (CK-2) Troponin T C-Reactive Protein NT-Pro-B Natriuret Pep Total Protein Albumin Triglycerides TSH Arterial Blood Glucose 138 H Arterial Blood Ionized Calcium 4.5 L Urine pH Urine WBC (Auto) Urine Creatinine 10/14/20 10/14/20 10/14/20 04:46 05:10 11:11 WBC RBC Hgb Hct RDW Lymph % (Auto) [place] % (Auto) Eos % (Auto) Lymph # (Auto) [place] # (Auto) Eos # (Auto) Seg Neutrophils % Lymphocytes % (Manual) Monocytes % (Manual) Seg Neutrophils # Seg Neutrophils # Man Lymphocytes # (Manual) Monocytes # (Manual) D-Dimer Heparin Anti-Xa Level ABG pH POC ABG pCO2 POC ABG pO2 ABG pO2 ABG HCO3 ABG O2 Saturation ABG Base Excess ABG Hemoglobin ABG Oxyhemoglobin ABG Sodium ABG Potassium ABG Chloride ABG Glucose VBG pH Oxyhemoglobin Carboxyhemoglobin Sodium 152 H Potassium 3.5 L Chloride Carbon Dioxide 38 H D BUN 46 H Creatinine 2.3 H Glucose 127 H POC Glucose 116 H 114 H Lactic Acid Calcium Phosphorus Magnesium Total Bilirubin AST ALT Ammonia Lactate Dehydrogenase Total Creatine Kinase CK-MB (CK-2) Troponin T C-Reactive Protein NT-Pro-B Natriuret Pep Total Protein Albumin Triglycerides TSH Arterial Blood Glucose Arterial Blood Ionized Calcium Urine pH Urine WBC (Auto) Urine Creatinine 10/14/20 10/14/20 10/15/20 18:53 23:23 04:12 WBC RBC Hgb Hct RDW Lymph % (Auto) [place] % (Auto) Eos % (Auto) Lymph # (Auto) [place] # (Auto) Eos # (Auto) Seg Neutrophils % Lymphocytes % (Manual) Monocytes % (Manual) Seg Neutrophils # Seg Neutrophils # Man Lymphocytes # (Manual) Monocytes # (Manual) D-Dimer Heparin Anti-Xa Level ABG pH POC ABG pCO2 POC ABG pO2 ABG pO2 ABG HCO3 ABG O2 Saturation ABG Base Excess ABG Hemoglobin ABG Oxyhemoglobin ABG Sodium ABG Potassium ABG Chloride ABG Glucose VBG pH Oxyhemoglobin Carboxyhemoglobin Sodium 149 H Potassium 3.2 L Chloride Carbon Dioxide 37 H BUN 40 H Creatinine 2.0 H Glucose 124 H POC Glucose 128 H 113 H Lactic Acid Calcium Phosphorus Magnesium Total Bilirubin AST ALT Ammonia Lactate Dehydrogenase Total Creatine Kinase CK-MB (CK-2) Troponin T C-Reactive Protein NT-Pro-B Natriuret Pep Total Protein Albumin Triglycerides TSH Arterial Blood Glucose Arterial Blood Ionized Calcium Urine pH Urine WBC (Auto) Urine Creatinine 10/15/20 10/15/20 10/15/20 04:22 11:39 17:36 WBC RBC Hgb Hct RDW Lymph % (Auto) [place] % (Auto) Eos % (Auto) Lymph # (Auto) [place] # (Auto) Eos # (Auto) Seg Neutrophils % Lymphocytes % (Manual) Monocytes % (Manual) Seg Neutrophils # Seg Neutrophils # Man Lymphocytes # (Manual) Monocytes # (Manual) D-Dimer Heparin Anti-Xa Level ABG pH POC ABG pCO2 POC ABG pO2 ABG pO2 115.0 H ABG HCO3 38.1 H ABG O2 Saturation ABG Base Excess 11.3 H ABG Hemoglobin 11.0 L ABG Oxyhemoglobin ABG Sodium ABG Potassium ABG Chloride ABG Glucose VBG pH Oxyhemoglobin Carboxyhemoglobin Sodium Potassium Chloride Carbon Dioxide BUN Creatinine Glucose POC Glucose 123 H 118 H Lactic Acid Calcium Phosphorus Magnesium Total Bilirubin AST ALT Ammonia Lactate Dehydrogenase Total Creatine Kinase CK-MB (CK-2) Troponin T C-Reactive Protein NT-Pro-B Natriuret Pep Total Protein Albumin Triglycerides TSH Arterial Blood Glucose Arterial Blood Ionized Calcium Urine pH Urine WBC (Auto) Urine Creatinine 10/15/20 10/16/20 10/16/20 23:18 03:13 05:10 WBC RBC Hgb Hct RDW Lymph % (Auto) [place] % (Auto) Eos % (Auto) Lymph # (Auto) [place] # (Auto) Eos # (Auto) Seg Neutrophils % Lymphocytes % (Manual) Monocytes % (Manual) Seg Neutrophils # Seg Neutrophils # Man Lymphocytes # (Manual) Monocytes # (Manual) D-Dimer Heparin Anti-Xa Level ABG pH POC ABG pCO2 POC ABG pO2 ABG pO2 104.5 H ABG HCO3 35.1 H ABG O2 Saturation ABG Base Excess 9.5 H ABG Hemoglobin 7.9 L ABG Oxyhemoglobin ABG Sodium ABG Potassium ABG Chloride ABG Glucose VBG pH Oxyhemoglobin Carboxyhemoglobin Sodium Potassium 3.3 L Chloride Carbon Dioxide 33 H BUN 37 H Creatinine 1.4 H Glucose 148 H POC Glucose 135 H Lactic Acid Calcium Phosphorus Magnesium 2.40 H Total Bilirubin AST ALT Ammonia Lactate Dehydrogenase Total Creatine Kinase CK-MB (CK-2) Troponin T C-Reactive Protein NT-Pro-B Natriuret Pep Total Protein Albumin Triglycerides TSH Arterial Blood Glucose Arterial Blood Ionized Calcium Urine pH Urine WBC (Auto) Urine Creatinine 10/16/20 10/16/20 10/16/20 06:36 11:08 17:07 WBC RBC Hgb Hct RDW Lymph % (Auto) [place] % (Auto) Eos % (Auto) Lymph # (Auto) [place] # (Auto) Eos # (Auto) Seg Neutrophils % Lymphocytes % (Manual) Monocytes % (Manual) Seg Neutrophils # Seg Neutrophils # Man Lymphocytes # (Manual) Monocytes # (Manual) D-Dimer Heparin Anti-Xa Level ABG pH POC ABG pCO2 POC ABG pO2 ABG pO2 ABG HCO3 ABG O2 Saturation ABG Base Excess ABG Hemoglobin ABG Oxyhemoglobin ABG Sodium ABG Potassium ABG Chloride ABG Glucose VBG pH Oxyhemoglobin Carboxyhemoglobin Sodium Potassium Chloride Carbon Dioxide BUN Creatinine Glucose POC Glucose 150 H 111 H 132 H Lactic Acid Calcium Phosphorus Magnesium Total Bilirubin AST ALT Ammonia Lactate Dehydrogenase Total Creatine Kinase CK-MB (CK-2) Troponin T C-Reactive Protein NT-Pro-B Natriuret Pep Total Protein Albumin Triglycerides TSH Arterial Blood Glucose Arterial Blood Ionized Calcium Urine pH Urine WBC (Auto) Urine Creatinine 10/16/20 10/17/20 10/17/20 23:38 03:32 03:32 WBC RBC Hgb Hct RDW Lymph % (Auto) [place] % (Auto) Eos % (Auto) Lymph # (Auto) [place] # (Auto) Eos # (Auto) Seg Neutrophils % Lymphocytes % (Manual) Monocytes % (Manual) Seg Neutrophils # Seg Neutrophils # Man Lymphocytes # (Manual) Monocytes # (Manual) D-Dimer Heparin Anti-Xa Level ABG pH POC ABG pCO2 POC ABG pO2 ABG pO2 ABG HCO3 ABG O2 Saturation ABG Base Excess ABG Hemoglobin ABG Oxyhemoglobin ABG Sodium ABG Potassium ABG Chloride ABG Glucose VBG pH Oxyhemoglobin Carboxyhemoglobin Sodium 146 H Potassium Chloride Carbon Dioxide 32 H BUN 57 H Creatinine 2.4 H D Glucose 124 H POC Glucose 117 H Lactic Acid Calcium Phosphorus 5.20 H D Magnesium Total Bilirubin AST ALT Ammonia Lactate Dehydrogenase Total Creatine Kinase CK-MB (CK-2) Troponin T C-Reactive Protein NT-Pro-B Natriuret Pep Total Protein Albumin Triglycerides TSH Arterial Blood Glucose Arterial Blood Ionized Calcium Urine pH Urine WBC (Auto) Urine Creatinine 10/17/20 10/17/20 10/18/20 05:10 17:33 00:13 WBC RBC Hgb Hct RDW Lymph % (Auto) [place] % (Auto) Eos % (Auto) Lymph # (Auto) [place] # (Auto) Eos # (Auto) Seg Neutrophils % Lymphocytes % (Manual) Monocytes % (Manual) Seg Neutrophils # Seg Neutrophils # Man Lymphocytes # (Manual) Monocytes # (Manual) D-Dimer Heparin Anti-Xa Level ABG pH POC ABG pCO2 POC ABG pO2 ABG pO2 ABG HCO3 ABG O2 Saturation ABG Base Excess ABG Hemoglobin ABG Oxyhemoglobin ABG Sodium ABG Potassium ABG Chloride ABG Glucose VBG pH Oxyhemoglobin Carboxyhemoglobin Sodium Potassium Chloride Carbon Dioxide BUN Creatinine Glucose POC Glucose 122 H 121 H 23 L Lactic Acid Calcium Phosphorus Magnesium Total Bilirubin AST ALT Ammonia Lactate Dehydrogenase Total Creatine Kinase CK-MB (CK-2) Troponin T C-Reactive Protein NT-Pro-B Natriuret Pep Total Protein Albumin Triglycerides TSH Arterial Blood Glucose Arterial Blood Ionized Calcium Urine pH Urine WBC (Auto) Urine Creatinine 10/18/20 10/18/20 10/18/20 00:16 03:27 03:27 WBC RBC Hgb 11.7 L Hct RDW Lymph % (Auto) [place] % (Auto) Eos % (Auto) Lymph # (Auto) [place] # (Auto) Eos # (Auto) Seg Neutrophils % Lymphocytes % (Manual) Monocytes % (Manual) Seg Neutrophils # Seg Neutrophils # Man Lymphocytes # (Manual) Monocytes # (Manual) D-Dimer Heparin Anti-Xa Level ABG pH POC ABG pCO2 POC ABG pO2 ABG pO2 ABG HCO3 ABG O2 Saturation ABG Base Excess ABG Hemoglobin ABG Oxyhemoglobin ABG Sodium ABG Potassium ABG Chloride ABG Glucose VBG pH Oxyhemoglobin Carboxyhemoglobin Sodium Potassium Chloride 97.6 L Carbon Dioxide BUN 90 H Creatinine 3.3 H Glucose 146 H POC Glucose 134 H Lactic Acid Calcium Phosphorus Magnesium Total Bilirubin 1.70 H AST ALT Ammonia Lactate Dehydrogenase Total Creatine Kinase CK-MB (CK-2) Troponin T C-Reactive Protein NT-Pro-B Natriuret Pep Total Protein Albumin 3.1 L Triglycerides TSH Arterial Blood Glucose Arterial Blood Ionized Calcium Urine pH Urine WBC (Auto) Urine Creatinine 10/18/20 10/18/20 10/18/20 05:09 11:19 17:15 WBC RBC Hgb Hct RDW Lymph % (Auto) [place] % (Auto) Eos % (Auto) Lymph # (Auto) [place] # (Auto) Eos # (Auto) Seg Neutrophils % Lymphocytes % (Manual) Monocytes % (Manual) Seg Neutrophils # Seg Neutrophils # Man Lymphocytes # (Manual) Monocytes # (Manual) D-Dimer Heparin Anti-Xa Level ABG pH POC ABG pCO2 POC ABG pO2 ABG pO2 ABG HCO3 ABG O2 Saturation ABG Base Excess ABG Hemoglobin ABG Oxyhemoglobin ABG Sodium ABG Potassium ABG Chloride ABG Glucose VBG pH Oxyhemoglobin Carboxyhemoglobin Sodium Potassium Chloride Carbon Dioxide BUN Creatinine Glucose POC Glucose 144 H 145 H 151 H Lactic Acid Calcium Phosphorus Magnesium Total Bilirubin AST ALT Ammonia Lactate Dehydrogenase Total Creatine Kinase CK-MB (CK-2) Troponin T C-Reactive Protein NT-Pro-B Natriuret Pep Total Protein Albumin Triglycerides TSH Arterial Blood Glucose Arterial Blood Ionized Calcium Urine pH Urine WBC (Auto) Urine Creatinine 10/18/20 10/18/20 10/19/20 23:16 Unknown 04:55 WBC RBC Hgb Hct RDW Lymph % (Auto) [place] % (Auto) Eos % (Auto) Lymph # (Auto) [place] # (Auto) Eos # (Auto) Seg Neutrophils % Lymphocytes % (Manual) Monocytes % (Manual) Seg Neutrophils # Seg Neutrophils # Man Lymphocytes # (Manual) Monocytes # (Manual) D-Dimer Heparin Anti-Xa Level ABG pH POC ABG pCO2 POC ABG pO2 ABG pO2 ABG HCO3 ABG O2 Saturation ABG Base Excess ABG Hemoglobin ABG Oxyhemoglobin ABG Sodium ABG Potassium ABG Chloride ABG Glucose VBG pH Oxyhemoglobin Carboxyhemoglobin Sodium Potassium Chloride Carbon Dioxide BUN 104 H Creatinine 3.1 H Glucose 139 H POC Glucose 123 H Lactic Acid Calcium Phosphorus Magnesium Total Bilirubin AST ALT Ammonia Lactate Dehydrogenase Total Creatine Kinase CK-MB (CK-2) Troponin T C-Reactive Protein NT-Pro-B Natriuret Pep Total Protein Albumin Triglycerides TSH Arterial Blood Glucose Arterial Blood Ionized Calcium Urine pH Urine WBC (Auto) 115.0 H Urine Creatinine 10/19/20 10/19/20 10/19/20 04:55 11:35 13:14 WBC 15.1 H RBC Hgb 11.1 L Hct 34.4 L RDW Lymph % (Auto) 4.2 L [place] % (Auto) 11.9 H Eos % (Auto) Lymph # (Auto) 0.6 L [place] # (Auto) 1.8 H Eos # (Auto) Seg Neutrophils % 82.0 H Lymphocytes % (Manual) Monocytes % (Manual) Seg Neutrophils # 12.4 H Seg Neutrophils # Man Lymphocytes # (Manual) Monocytes # (Manual) D-Dimer Heparin Anti-Xa Level ABG pH POC ABG pCO2 POC ABG pO2 ABG pO2 ABG HCO3 ABG O2 Saturation ABG Base Excess ABG Hemoglobin ABG Oxyhemoglobin ABG Sodium ABG Potassium ABG Chloride ABG Glucose VBG pH Oxyhemoglobin Carboxyhemoglobin Sodium Potassium Chloride Carbon Dioxide BUN Creatinine Glucose POC Glucose 136 H Lactic Acid Calcium Phosphorus Magnesium Total Bilirubin AST ALT Ammonia Lactate Dehydrogenase Total Creatine Kinase CK-MB (CK-2) Troponin T C-Reactive Protein NT-Pro-B Natriuret Pep Total Protein Albumin Triglycerides TSH Arterial Blood Glucose Arterial Blood Ionized Calcium Urine pH Urine WBC (Auto) Urine Creatinine 93.7 H 10/19/20 10/19/20 10/20/20 17:53 23:39 04:30 WBC RBC Hgb Hct RDW Lymph % (Auto) [place] % (Auto) Eos % (Auto) Lymph # (Auto) [place] # (Auto) Eos # (Auto) Seg Neutrophils % Lymphocytes % (Manual) Monocytes % (Manual) Seg Neutrophils # Seg Neutrophils # Man Lymphocytes # (Manual) Monocytes # (Manual) D-Dimer Heparin Anti-Xa Level ABG pH POC ABG pCO2 POC ABG pO2 ABG pO2 ABG HCO3 ABG O2 Saturation ABG Base Excess ABG Hemoglobin ABG Oxyhemoglobin ABG Sodium ABG Potassium ABG Chloride ABG Glucose VBG pH Oxyhemoglobin Carboxyhemoglobin Sodium Potassium Chloride Carbon Dioxide BUN 104 H Creatinine 2.8 H Glucose 151 H POC Glucose 137 H 133 H Lactic Acid Calcium Phosphorus Magnesium Total Bilirubin AST ALT Ammonia Lactate Dehydrogenase Total Creatine Kinase CK-MB (CK-2) Troponin T C-Reactive Protein NT-Pro-B Natriuret Pep Total Protein Albumin Triglycerides TSH Arterial Blood Glucose Arterial Blood Ionized Calcium Urine pH Urine WBC (Auto) Urine Creatinine 10/20/20 10/20/20 10/20/20 04:30 05:38 11:34 WBC 17.9 H RBC Hgb 11.7 L Hct RDW Lymph % (Auto) [place] % (Auto) Eos % (Auto) Lymph # (Auto) [place] # (Auto) Eos # (Auto) Seg Neutrophils % Lymphocytes % (Manual) Monocytes % (Manual) Seg Neutrophils # Seg Neutrophils # Man Lymphocytes # (Manual) Monocytes # (Manual) D-Dimer Heparin Anti-Xa Level ABG pH POC ABG pCO2 POC ABG pO2 ABG pO2 ABG HCO3 ABG O2 Saturation ABG Base Excess ABG Hemoglobin ABG Oxyhemoglobin ABG Sodium ABG Potassium ABG Chloride ABG Glucose VBG pH Oxyhemoglobin Carboxyhemoglobin Sodium Potassium Chloride Carbon Dioxide BUN Creatinine Glucose POC Glucose 164 H 148 H Lactic Acid Calcium Phosphorus Magnesium Total Bilirubin AST ALT Ammonia Lactate Dehydrogenase Total Creatine Kinase CK-MB (CK-2) Troponin T C-Reactive Protein NT-Pro-B Natriuret Pep Total Protein Albumin Triglycerides TSH Arterial Blood Glucose Arterial Blood Ionized Calcium Urine pH Urine WBC (Auto) Urine Creatinine 10/20/20 10/20/20 10/20/20 17:40 20:20 23:29 WBC RBC Hgb Hct RDW Lymph % (Auto) [place] % (Auto) Eos % (Auto) Lymph # (Auto) [place] # (Auto) Eos # (Auto) Seg Neutrophils % Lymphocytes % (Manual) Monocytes % (Manual) Seg Neutrophils # Seg Neutrophils # Man Lymphocytes # (Manual) Monocytes # (Manual) D-Dimer Heparin Anti-Xa Level ABG pH 7.292 L POC ABG pCO2 68.5 H POC ABG pO2 ABG pO2 ABG HCO3 ABG O2 Saturation ABG Base Excess ABG Hemoglobin 11.6 L ABG Oxyhemoglobin ABG Sodium ABG Potassium ABG Chloride ABG Glucose 145 H VBG pH Oxyhemoglobin Carboxyhemoglobin Sodium Potassium Chloride Carbon Dioxide BUN Creatinine Glucose POC Glucose 130 H 136 H Lactic Acid Calcium Phosphorus Magnesium Total Bilirubin AST ALT Ammonia Lactate Dehydrogenase Total Creatine Kinase CK-MB (CK-2) Troponin T C-Reactive Protein NT-Pro-B Natriuret Pep Total Protein Albumin Triglycerides TSH Arterial Blood Glucose 145 H Arterial Blood Ionized Calcium Urine pH Urine WBC (Auto) Urine Creatinine 10/21/20 10/21/20 10/21/20 04:20 06:26 06:30 WBC RBC Hgb Hct RDW Lymph % (Auto) [place] % (Auto) Eos % (Auto) Lymph # (Auto) [place] # (Auto) Eos # (Auto) Seg Neutrophils % Lymphocytes % (Manual) Monocytes % (Manual) Seg Neutrophils # Seg Neutrophils # Man Lymphocytes # (Manual) Monocytes # (Manual) D-Dimer Heparin Anti-Xa Level ABG pH 7.262 L POC ABG pCO2 72.4 H POC ABG pO2 81.6 L ABG pO2 ABG HCO3 ABG O2 Saturation ABG Base Excess ABG Hemoglobin 11.6 L ABG Oxyhemoglobin ABG Sodium ABG Potassium ABG Chloride ABG Glucose 140 H VBG pH Oxyhemoglobin Carboxyhemoglobin Sodium Potassium Chloride Carbon Dioxide 33 H BUN 104 H Creatinine 2.9 H Glucose 153 H POC Glucose 128 H Lactic Acid Calcium Phosphorus Magnesium Total Bilirubin AST ALT Ammonia Lactate Dehydrogenase Total Creatine Kinase CK-MB (CK-2) Troponin T C-Reactive Protein NT-Pro-B Natriuret Pep Total Protein Albumin Triglycerides TSH Arterial Blood Glucose 140 H Arterial Blood Ionized Calcium Urine pH Urine WBC (Auto) Urine Creatinine 10/21/20 10/21/20 10/21/20 06:30 11:24 17:21 WBC 13.3 H RBC Hgb 10.7 L Hct 32.7 L RDW Lymph % (Auto) [place] % (Auto) Eos % (Auto) Lymph # (Auto) [place] # (Auto) Eos # (Auto) Seg Neutrophils % Lymphocytes % (Manual) Monocytes % (Manual) Seg Neutrophils # Seg Neutrophils # Man Lymphocytes # (Manual) Monocytes # (Manual) D-Dimer Heparin Anti-Xa Level ABG pH POC ABG pCO2 POC ABG pO2 ABG pO2 ABG HCO3 ABG O2 Saturation ABG Base Excess ABG Hemoglobin ABG Oxyhemoglobin ABG Sodium ABG Potassium ABG Chloride ABG Glucose VBG pH Oxyhemoglobin Carboxyhemoglobin Sodium Potassium Chloride Carbon Dioxide BUN Creatinine Glucose POC Glucose 178 H 138 H Lactic Acid Calcium Phosphorus Magnesium Total Bilirubin AST ALT Ammonia Lactate Dehydrogenase Total Creatine Kinase CK-MB (CK-2) Troponin T C-Reactive Protein NT-Pro-B Natriuret Pep Total Protein Albumin Triglycerides TSH Arterial Blood Glucose Arterial Blood Ionized Calcium Urine pH Urine WBC (Auto) Urine Creatinine 10/22/20 10/22/20 10/22/20 00:05 04:30 06:15 WBC RBC Hgb Hct RDW Lymph % (Auto) [place] % (Auto) Eos % (Auto) Lymph # (Auto) [place] # (Auto) Eos # (Auto) Seg Neutrophils % Lymphocytes % (Manual) Monocytes % (Manual) Seg Neutrophils # Seg Neutrophils # Man Lymphocytes # (Manual) Monocytes # (Manual) D-Dimer Heparin Anti-Xa Level ABG pH 7.225 L POC ABG pCO2 76.6 H POC ABG pO2 ABG pO2 ABG HCO3 ABG O2 Saturation ABG Base Excess ABG Hemoglobin 11.1 L ABG Oxyhemoglobin ABG Sodium ABG Potassium ABG Chloride ABG Glucose 151 H VBG pH Oxyhemoglobin Carboxyhemoglobin Sodium Potassium Chloride Carbon Dioxide 32 H BUN 103 H Creatinine 2.7 H Glucose 151 H POC Glucose 135 H Lactic Acid Calcium Phosphorus Magnesium Total Bilirubin AST ALT Ammonia Lactate Dehydrogenase Total Creatine Kinase CK-MB (CK-2) Troponin T C-Reactive Protein NT-Pro-B Natriuret Pep Total Protein Albumin Triglycerides TSH Arterial Blood Glucose 151 H Arterial Blood Ionized Calcium Urine pH Urine WBC (Auto) Urine Creatinine 10/22/20 10/22/20 10/22/20 06:18 11:34 11:44 WBC RBC Hgb Hct RDW Lymph % (Auto) [place] % (Auto) Eos % (Auto) Lymph # (Auto) [place] # (Auto) Eos # (Auto) Seg Neutrophils % Lymphocytes % (Manual) Monocytes % (Manual) Seg Neutrophils # Seg Neutrophils # Man Lymphocytes # (Manual) Monocytes # (Manual) D-Dimer Heparin Anti-Xa Level ABG pH 7.278 L POC ABG pCO2 67.8 H POC ABG pO2 ABG pO2 ABG HCO3 ABG O2 Saturation ABG Base Excess ABG Hemoglobin 10.2 L ABG Oxyhemoglobin ABG Sodium ABG Potassium ABG Chloride ABG Glucose 172 H VBG pH Oxyhemoglobin Carboxyhemoglobin Sodium Potassium Chloride Carbon Dioxide BUN Creatinine Glucose POC Glucose 137 H 147 H Lactic Acid Calcium Phosphorus Magnesium Total Bilirubin AST ALT Ammonia Lactate Dehydrogenase Total Creatine Kinase CK-MB (CK-2) Troponin T C-Reactive Protein NT-Pro-B Natriuret Pep Total Protein Albumin Triglycerides TSH Arterial Blood Glucose 172 H Arterial Blood Ionized Calcium Urine pH Urine WBC (Auto) Urine Creatinine 10/22/20 10/22/20 10/23/20 17:40 23:55 05:11 WBC RBC Hgb Hct RDW Lymph % (Auto) [place] % (Auto) Eos % (Auto) Lymph # (Auto) [place] # (Auto) Eos # (Auto) Seg Neutrophils % Lymphocytes % (Manual) Monocytes % (Manual) Seg Neutrophils # Seg Neutrophils # Man Lymphocytes # (Manual) Monocytes # (Manual) D-Dimer Heparin Anti-Xa Level ABG pH POC ABG pCO2 63.6 H POC ABG pO2 81.2 L ABG pO2 ABG HCO3 ABG O2 Saturation ABG Base Excess ABG Hemoglobin 10.6 L ABG Oxyhemoglobin ABG Sodium ABG Potassium ABG Chloride 109.0 H ABG Glucose 149 H VBG pH Oxyhemoglobin Carboxyhemoglobin Sodium Potassium Chloride Carbon Dioxide BUN Creatinine Glucose POC Glucose 141 H 139 H Lactic Acid Calcium Phosphorus Magnesium Total Bilirubin AST ALT Ammonia Lactate Dehydrogenase Total Creatine Kinase CK-MB (CK-2) Troponin T C-Reactive Protein NT-Pro-B Natriuret Pep Total Protein Albumin Triglycerides TSH Arterial Blood Glucose 149 H Arterial Blood Ionized Calcium Urine pH Urine WBC (Auto) Urine Creatinine 10/23/20 10/23/20 10/23/20 05:39 06:00 11:32 WBC RBC Hgb Hct RDW Lymph % (Auto) [place] % (Auto) Eos % (Auto) Lymph # (Auto) [place] # (Auto) Eos # (Auto) Seg Neutrophils % Lymphocytes % (Manual) Monocytes % (Manual) Seg Neutrophils # Seg Neutrophils # Man Lymphocytes # (Manual) Monocytes # (Manual) D-Dimer Heparin Anti-Xa Level ABG pH POC ABG pCO2 POC ABG pO2 ABG pO2 ABG HCO3 ABG O2 Saturation ABG Base Excess ABG Hemoglobin ABG Oxyhemoglobin ABG Sodium ABG Potassium ABG Chloride ABG Glucose VBG pH Oxyhemoglobin Carboxyhemoglobin Sodium 146 H Potassium Chloride Carbon Dioxide 35 H BUN 92 H Creatinine 2.0 H Glucose 144 H POC Glucose 139 H 176 H Lactic Acid Calcium Phosphorus Magnesium Total Bilirubin AST ALT Ammonia Lactate Dehydrogenase Total Creatine Kinase CK-MB (CK-2) Troponin T C-Reactive Protein NT-Pro-B Natriuret Pep Total Protein Albumin Triglycerides TSH Arterial Blood Glucose Arterial Blood Ionized Calcium Urine pH Urine WBC (Auto) Urine Creatinine 10/23/20 10/23/20 10/24/20 11:34 17:55 05:33 WBC RBC Hgb Hct RDW Lymph % (Auto) [place] % (Auto) Eos % (Auto) Lymph # (Auto) [place] # (Auto) Eos # (Auto) Seg Neutrophils % Lymphocytes % (Manual) Monocytes % (Manual) Seg Neutrophils # Seg Neutrophils # Man Lymphocytes # (Manual) Monocytes # (Manual) D-Dimer Heparin Anti-Xa Level ABG pH POC ABG pCO2 POC ABG pO2 ABG pO2 ABG HCO3 ABG O2 Saturation ABG Base Excess ABG Hemoglobin ABG Oxyhemoglobin ABG Sodium ABG Potassium ABG Chloride ABG Glucose VBG pH Oxyhemoglobin Carboxyhemoglobin Sodium 147 H Potassium Chloride Carbon Dioxide 32 H BUN 76 H Creatinine 1.7 H Glucose 172 H POC Glucose 173 H 135 H Lactic Acid Calcium Phosphorus Magnesium Total Bilirubin AST ALT Ammonia Lactate Dehydrogenase Total Creatine Kinase CK-MB (CK-2) Troponin T C-Reactive Protein NT-Pro-B Natriuret Pep Total Protein Albumin Triglycerides TSH Arterial Blood Glucose Arterial Blood Ionized Calcium Urine pH Urine WBC (Auto) Urine Creatinine 10/24/20 10/24/20 10/24/20 05:41 12:09 18:09 WBC RBC Hgb Hct RDW Lymph % (Auto) [place] % (Auto) Eos % (Auto) Lymph # (Auto) [place] # (Auto) Eos # (Auto) Seg Neutrophils % Lymphocytes % (Manual) Monocytes % (Manual) Seg Neutrophils # Seg Neutrophils # Man Lymphocytes # (Manual) Monocytes # (Manual) D-Dimer Heparin Anti-Xa Level ABG pH POC ABG pCO2 POC ABG pO2 ABG pO2 ABG HCO3 ABG O2 Saturation ABG Base Excess ABG Hemoglobin ABG Oxyhemoglobin ABG Sodium ABG Potassium ABG Chloride ABG Glucose VBG pH Oxyhemoglobin Carboxyhemoglobin Sodium Potassium Chloride Carbon Dioxide BUN Creatinine Glucose POC Glucose 156 H 154 H 132 H Lactic Acid Calcium Phosphorus Magnesium Total Bilirubin AST ALT Ammonia Lactate Dehydrogenase Total Creatine Kinase CK-MB (CK-2) Troponin T C-Reactive Protein NT-Pro-B Natriuret Pep Total Protein Albumin Triglycerides TSH Arterial Blood Glucose Arterial Blood Ionized Calcium Urine pH Urine WBC (Auto) Urine Creatinine 10/24/20 10/25/20 10/25/20 23:39 05:29 08:55 WBC RBC Hgb Hct RDW Lymph % (Auto) [place] % (Auto) Eos % (Auto) Lymph # (Auto) [place] # (Auto) Eos # (Auto) Seg Neutrophils % Lymphocytes % (Manual) Monocytes % (Manual) Seg Neutrophils # Seg Neutrophils # Man Lymphocytes # (Manual) Monocytes # (Manual) D-Dimer Heparin Anti-Xa Level ABG pH POC ABG pCO2 POC ABG pO2 ABG pO2 ABG HCO3 ABG O2 Saturation ABG Base Excess ABG Hemoglobin ABG Oxyhemoglobin ABG Sodium ABG Potassium ABG Chloride ABG Glucose VBG pH Oxyhemoglobin Carboxyhemoglobin Sodium 150 H Potassium Chloride 108.3 H Carbon Dioxide 32 H BUN 57 H Creatinine 1.5 H Glucose 142 H POC Glucose 131 H 142 H Lactic Acid Calcium Phosphorus Magnesium Total Bilirubin AST ALT Ammonia Lactate Dehydrogenase Total Creatine Kinase CK-MB (CK-2) Troponin T C-Reactive Protein NT-Pro-B Natriuret Pep Total Protein Albumin Triglycerides TSH Arterial Blood Glucose Arterial Blood Ionized Calcium Urine pH Urine WBC (Auto) Urine Creatinine 10/25/20 10/25/20 10/25/20 08:55 11:08 18:10 WBC 14.3 H RBC 3.57 L Hgb 10.3 L Hct 31.6 L RDW Lymph % (Auto) [place] % (Auto) Eos % (Auto) Lymph # (Auto) [place] # (Auto) Eos # (Auto) Seg Neutrophils % Lymphocytes % (Manual) Monocytes % (Manual) Seg Neutrophils # Seg Neutrophils # Man Lymphocytes # (Manual) Monocytes # (Manual) D-Dimer Heparin Anti-Xa Level ABG pH POC ABG pCO2 52.3 H POC ABG pO2 ABG pO2 ABG HCO3 ABG O2 Saturation ABG Base Excess ABG Hemoglobin 11.2 L ABG Oxyhemoglobin ABG Sodium ABG Potassium ABG Chloride 108.0 H ABG Glucose 167 H VBG pH Oxyhemoglobin Carboxyhemoglobin Sodium Potassium Chloride Carbon Dioxide BUN Creatinine Glucose POC Glucose 157 H Lactic Acid Calcium Phosphorus Magnesium Total Bilirubin AST ALT Ammonia Lactate Dehydrogenase Total Creatine Kinase CK-MB (CK-2) Troponin T C-Reactive Protein NT-Pro-B Natriuret Pep Total Protein Albumin Triglycerides TSH Arterial Blood Glucose 167 H Arterial Blood Ionized Calcium Urine pH Urine WBC (Auto) Urine Creatinine 10/25/20 10/26/20 10/26/20 18:20 00:20 06:08 WBC RBC Hgb Hct RDW Lymph % (Auto) [place] % (Auto) Eos % (Auto) Lymph # (Auto) [place] # (Auto) Eos # (Auto) Seg Neutrophils % Lymphocytes % (Manual) Monocytes % (Manual) Seg Neutrophils # Seg Neutrophils # Man Lymphocytes # (Manual) Monocytes # (Manual) D-Dimer Heparin Anti-Xa Level ABG pH POC ABG pCO2 POC ABG pO2 ABG pO2 ABG HCO3 ABG O2 Saturation ABG Base Excess ABG Hemoglobin ABG Oxyhemoglobin ABG Sodium ABG Potassium ABG Chloride ABG Glucose VBG pH Oxyhemoglobin Carboxyhemoglobin Sodium Potassium Chloride Carbon Dioxide BUN Creatinine Glucose POC Glucose 127 H 108 H 119 H Lactic Acid Calcium Phosphorus Magnesium Total Bilirubin AST ALT Ammonia Lactate Dehydrogenase Total Creatine Kinase CK-MB (CK-2) Troponin T C-Reactive Protein NT-Pro-B Natriuret Pep Total Protein Albumin Triglycerides TSH Arterial Blood Glucose Arterial Blood Ionized Calcium Urine pH Urine WBC (Auto) Urine Creatinine 10/26/20 10/26/20 10/26/20 07:38 07:38 11:28 WBC 13.5 H RBC 3.37 L Hgb 9.8 L Hct 30.0 L RDW Lymph % (Auto) [place] % (Auto) Eos % (Auto) Lymph # (Auto) [place] # (Auto) Eos # (Auto) Seg Neutrophils % Lymphocytes % (Manual) Monocytes % (Manual) Seg Neutrophils # Seg Neutrophils # Man Lymphocytes # (Manual) Monocytes # (Manual) D-Dimer Heparin Anti-Xa Level ABG pH POC ABG pCO2 POC ABG pO2 ABG pO2 ABG HCO3 ABG O2 Saturation ABG Base Excess ABG Hemoglobin ABG Oxyhemoglobin ABG Sodium ABG Potassium ABG Chloride ABG Glucose VBG pH Oxyhemoglobin Carboxyhemoglobin Sodium 149 H Potassium Chloride 107.6 H Carbon Dioxide 34 H BUN 49 H Creatinine 1.4 H Glucose 137 H POC Glucose 148 H Lactic Acid Calcium Phosphorus Magnesium Total Bilirubin AST ALT Ammonia Lactate Dehydrogenase Total Creatine Kinase CK-MB (CK-2) Troponin T C-Reactive Protein NT-Pro-B Natriuret Pep Total Protein Albumin Triglycerides TSH Arterial Blood Glucose Arterial Blood Ionized Calcium Urine pH Urine WBC (Auto) Urine Creatinine 10/26/20 10/26/20 10/27/20 18:17 23:37 05:08 WBC RBC Hgb Hct RDW Lymph % (Auto) [place] % (Auto) Eos % (Auto) Lymph # (Auto) [place] # (Auto) Eos # (Auto) Seg Neutrophils % Lymphocytes % (Manual) Monocytes % (Manual) Seg Neutrophils # Seg Neutrophils # Man Lymphocytes # (Manual) Monocytes # (Manual) D-Dimer Heparin Anti-Xa Level ABG pH POC ABG pCO2 POC ABG pO2 ABG pO2 ABG HCO3 ABG O2 Saturation ABG Base Excess ABG Hemoglobin ABG Oxyhemoglobin ABG Sodium ABG Potassium ABG Chloride ABG Glucose VBG pH Oxyhemoglobin Carboxyhemoglobin Sodium Potassium Chloride Carbon Dioxide BUN Creatinine Glucose POC Glucose 121 H 152 H 120 H Lactic Acid Calcium Phosphorus Magnesium Total Bilirubin AST ALT Ammonia Lactate Dehydrogenase Total Creatine Kinase CK-MB (CK-2) Troponin T C-Reactive Protein NT-Pro-B Natriuret Pep Total Protein Albumin Triglycerides TSH Arterial Blood Glucose Arterial Blood Ionized Calcium Urine pH Urine WBC (Auto) Urine Creatinine 10/27/20 10/27/20 10/27/20 07:30 07:30 11:59 WBC RBC 3.46 L Hgb 10.2 L Hct 30.9 L RDW Lymph % (Auto) [place] % (Auto) Eos % (Auto) Lymph # (Auto) [place] # (Auto) Eos # (Auto) Seg Neutrophils % Lymphocytes % (Manual) Monocytes % (Manual) Seg Neutrophils # Seg Neutrophils # Man Lymphocytes # (Manual) Monocytes # (Manual) D-Dimer Heparin Anti-Xa Level ABG pH POC ABG pCO2 POC ABG pO2 ABG pO2 ABG HCO3 ABG O2 Saturation ABG Base Excess ABG Hemoglobin ABG Oxyhemoglobin ABG Sodium ABG Potassium ABG Chloride ABG Glucose VBG pH Oxyhemoglobin Carboxyhemoglobin Sodium 146 H Potassium Chloride Carbon Dioxide 34 H BUN 45 H Creatinine Glucose 131 H POC Glucose 143 H Lactic Acid Calcium Phosphorus Magnesium Total Bilirubin AST ALT Ammonia Lactate Dehydrogenase Total Creatine Kinase CK-MB (CK-2) Troponin T C-Reactive Protein NT-Pro-B Natriuret Pep Total Protein Albumin Triglycerides TSH Arterial Blood Glucose Arterial Blood Ionized Calcium Urine pH Urine WBC (Auto) Urine Creatinine 10/27/20 10/27/20 10/28/20 18:52 23:03 07:00 WBC RBC Hgb Hct RDW Lymph % (Auto) [place] % (Auto) Eos % (Auto) Lymph # (Auto) [place] # (Auto) Eos # (Auto) Seg Neutrophils % Lymphocytes % (Manual) Monocytes % (Manual) Seg Neutrophils # Seg Neutrophils # Man Lymphocytes # (Manual) Monocytes # (Manual) D-Dimer Heparin Anti-Xa Level ABG pH POC ABG pCO2 POC ABG pO2 ABG pO2 ABG HCO3 ABG O2 Saturation ABG Base Excess ABG Hemoglobin ABG Oxyhemoglobin ABG Sodium ABG Potassium ABG Chloride ABG Glucose VBG pH Oxyhemoglobin Carboxyhemoglobin Sodium 147 H Potassium Chloride Carbon Dioxide 35 H BUN 39 H Creatinine Glucose 133 H POC Glucose 119 H 158 H Lactic Acid Calcium Phosphorus Magnesium Total Bilirubin AST ALT Ammonia Lactate Dehydrogenase Total Creatine Kinase CK-MB (CK-2) Troponin T C-Reactive Protein NT-Pro-B Natriuret Pep Total Protein Albumin Triglycerides TSH Arterial Blood Glucose Arterial Blood Ionized Calcium Urine pH Urine WBC (Auto) Urine Creatinine 10/28/20 10/28/20 10/28/20 09:00 11:47 17:15 WBC 12.5 H RBC 3.58 L Hgb 10.5 L Hct 32.1 L RDW Lymph % (Auto) [place] % (Auto) Eos % (Auto) Lymph # (Auto) [place] # (Auto) Eos # (Auto) Seg Neutrophils % Lymphocytes % (Manual) Monocytes % (Manual) Seg Neutrophils # Seg Neutrophils # Man Lymphocytes # (Manual) Monocytes # (Manual) D-Dimer Heparin Anti-Xa Level ABG pH POC ABG pCO2 POC ABG pO2 ABG pO2 ABG HCO3 ABG O2 Saturation ABG Base Excess ABG Hemoglobin ABG Oxyhemoglobin ABG Sodium ABG Potassium ABG Chloride ABG Glucose VBG pH Oxyhemoglobin Carboxyhemoglobin Sodium Potassium Chloride Carbon Dioxide BUN Creatinine Glucose POC Glucose 129 H 109 H Lactic Acid Calcium Phosphorus Magnesium Total Bilirubin AST ALT Ammonia Lactate Dehydrogenase Total Creatine Kinase CK-MB (CK-2) Troponin T C-Reactive Protein NT-Pro-B Natriuret Pep Total Protein Albumin Triglycerides TSH Arterial Blood Glucose Arterial Blood Ionized Calcium Urine pH Urine WBC (Auto) Urine Creatinine 10/28/20 10/29/20 10/29/20 23:31 04:23 04:23 WBC 13.6 H RBC 3.47 L Hgb 10.5 L Hct 30.7 L RDW 15.4 H Lymph % (Auto) [place] % (Auto) Eos % (Auto) Lymph # (Auto) [place] # (Auto) Eos # (Auto) Seg Neutrophils % Lymphocytes % (Manual) Monocytes % (Manual) Seg Neutrophils # Seg Neutrophils # Man Lymphocytes # (Manual) Monocytes # (Manual) D-Dimer Heparin Anti-Xa Level ABG pH POC ABG pCO2 POC ABG pO2 ABG pO2 ABG HCO3 ABG O2 Saturation ABG Base Excess ABG Hemoglobin ABG Oxyhemoglobin ABG Sodium ABG Potassium ABG Chloride ABG Glucose VBG pH Oxyhemoglobin Carboxyhemoglobin Sodium Potassium Chloride Carbon Dioxide 35 H BUN 34 H Creatinine Glucose 107 H POC Glucose 138 H Lactic Acid Calcium Phosphorus Magnesium Total Bilirubin AST ALT Ammonia Lactate Dehydrogenase Total Creatine Kinase CK-MB (CK-2) Troponin T C-Reactive Protein NT-Pro-B Natriuret Pep Total Protein Albumin Triglycerides TSH Arterial Blood Glucose Arterial Blood Ionized Calcium Urine pH Urine WBC (Auto) Urine Creatinine 10/29/20 10/29/20 10/29/20 05:21 11:49 23:19 WBC RBC Hgb Hct RDW Lymph % (Auto) [place] % (Auto) Eos % (Auto) Lymph # (Auto) [place] # (Auto) Eos # (Auto) Seg Neutrophils % Lymphocytes % (Manual) Monocytes % (Manual) Seg Neutrophils # Seg Neutrophils # Man Lymphocytes # (Manual) Monocytes # (Manual) D-Dimer Heparin Anti-Xa Level ABG pH POC ABG pCO2 POC ABG pO2 ABG pO2 ABG HCO3 ABG O2 Saturation ABG Base Excess ABG Hemoglobin ABG Oxyhemoglobin ABG Sodium ABG Potassium ABG Chloride ABG Glucose VBG pH Oxyhemoglobin Carboxyhemoglobin Sodium Potassium Chloride Carbon Dioxide BUN Creatinine Glucose POC Glucose 115 H 124 H 129 H Lactic Acid Calcium Phosphorus Magnesium Total Bilirubin AST ALT Ammonia Lactate Dehydrogenase Total Creatine Kinase CK-MB (CK-2) Troponin T C-Reactive Protein NT-Pro-B Natriuret Pep Total Protein Albumin Triglycerides TSH Arterial Blood Glucose Arterial Blood Ionized Calcium Urine pH Urine WBC (Auto) Urine Creatinine 10/30/20 10/30/20 10/30/20 04:59 05:10 11:52 WBC RBC Hgb Hct RDW Lymph % (Auto) [place] % (Auto) Eos % (Auto) Lymph # (Auto) [place] # (Auto) Eos # (Auto) Seg Neutrophils % Lymphocytes % (Manual) Monocytes % (Manual) Seg Neutrophils # Seg Neutrophils # Man Lymphocytes # (Manual) Monocytes # (Manual) D-Dimer Heparin Anti-Xa Level ABG pH POC ABG pCO2 POC ABG pO2 ABG pO2 ABG HCO3 ABG O2 Saturation ABG Base Excess ABG Hemoglobin ABG Oxyhemoglobin ABG Sodium ABG Potassium ABG Chloride ABG Glucose VBG pH Oxyhemoglobin Carboxyhemoglobin Sodium Potassium Chloride Carbon Dioxide 34 H BUN 33 H Creatinine Glucose 128 H POC Glucose 126 H 132 H Lactic Acid Calcium Phosphorus Magnesium Total Bilirubin AST ALT Ammonia Lactate Dehydrogenase Total Creatine Kinase CK-MB (CK-2) Troponin T C-Reactive Protein NT-Pro-B Natriuret Pep Total Protein Albumin Triglycerides TSH Arterial Blood Glucose Arterial Blood Ionized Calcium Urine pH Urine WBC (Auto) Urine Creatinine 10/30/20 10/30/20 10/31/20 16:59 23:19 04:00 WBC RBC Hgb Hct RDW Lymph % (Auto) [place] % (Auto) Eos % (Auto) Lymph # (Auto) [place] # (Auto) Eos # (Auto) Seg Neutrophils % Lymphocytes % (Manual) Monocytes % (Manual) Seg Neutrophils # Seg Neutrophils # Man Lymphocytes # (Manual) Monocytes # (Manual) D-Dimer Heparin Anti-Xa Level ABG pH POC ABG pCO2 POC ABG pO2 ABG pO2 ABG HCO3 ABG O2 Saturation ABG Base Excess ABG Hemoglobin ABG Oxyhemoglobin ABG Sodium ABG Potassium ABG Chloride ABG Glucose VBG pH Oxyhemoglobin Carboxyhemoglobin Sodium Potassium Chloride Carbon Dioxide 38 H BUN 32 H Creatinine Glucose 121 H POC Glucose 118 H 138 H Lactic Acid Calcium Phosphorus Magnesium Total Bilirubin AST ALT Ammonia Lactate Dehydrogenase Total Creatine Kinase CK-MB (CK-2) Troponin T C-Reactive Protein NT-Pro-B Natriuret Pep Total Protein Albumin Triglycerides TSH Arterial Blood Glucose Arterial Blood Ionized Calcium Urine pH Urine WBC (Auto) Urine Creatinine 10/31/20 10/31/20 10/31/20 05:13 11:09 16:17 WBC RBC Hgb Hct RDW Lymph % (Auto) [place] % (Auto) Eos % (Auto) Lymph # (Auto) [place] # (Auto) Eos # (Auto) Seg Neutrophils % Lymphocytes % (Manual) Monocytes % (Manual) Seg Neutrophils # Seg Neutrophils # Man Lymphocytes # (Manual) Monocytes # (Manual) D-Dimer Heparin Anti-Xa Level ABG pH POC ABG pCO2 71.1 H POC ABG pO2 67.4 L ABG pO2 ABG HCO3 ABG O2 Saturation ABG Base Excess ABG Hemoglobin 10.9 L ABG Oxyhemoglobin 90.7 L ABG Sodium ABG Potassium ABG Chloride ABG Glucose 134 H VBG pH Oxyhemoglobin Carboxyhemoglobin Sodium Potassium Chloride Carbon Dioxide BUN Creatinine Glucose POC Glucose 110 H 138 H Lactic Acid Calcium Phosphorus Magnesium Total Bilirubin AST ALT Ammonia Lactate Dehydrogenase Total Creatine Kinase CK-MB (CK-2) Troponin T C-Reactive Protein NT-Pro-B Natriuret Pep Total Protein Albumin Triglycerides TSH Arterial Blood Glucose 134 H Arterial Blood Ionized Calcium Urine pH Urine WBC (Auto) Urine Creatinine 10/31/20 10/31/20 11/01/20 18:16 23:56 04:09 WBC 11.3 H RBC 3.05 L Hgb 9.0 L Hct 27.3 L RDW Lymph % (Auto) [place] % (Auto) Eos % (Auto) Lymph # (Auto) [place] # (Auto) Eos # (Auto) Seg Neutrophils % Lymphocytes % (Manual) Monocytes % (Manual) Seg Neutrophils # Seg Neutrophils # Man Lymphocytes # (Manual) Monocytes # (Manual) D-Dimer Heparin Anti-Xa Level ABG pH POC ABG pCO2 POC ABG pO2 ABG pO2 ABG HCO3 ABG O2 Saturation ABG Base Excess ABG Hemoglobin ABG Oxyhemoglobin ABG Sodium ABG Potassium ABG Chloride ABG Glucose VBG pH Oxyhemoglobin Carboxyhemoglobin Sodium Potassium Chloride Carbon Dioxide BUN Creatinine Glucose POC Glucose 135 H 122 H Lactic Acid Calcium Phosphorus Magnesium Total Bilirubin AST ALT Ammonia Lactate Dehydrogenase Total Creatine Kinase CK-MB (CK-2) Troponin T C-Reactive Protein NT-Pro-B Natriuret Pep Total Protein Albumin Triglycerides TSH Arterial Blood Glucose Arterial Blood Ionized Calcium Urine pH Urine WBC (Auto) Urine Creatinine 11/01/20 11/01/20 11/01/20 05:10 11:51 17:17 WBC RBC Hgb Hct RDW Lymph % (Auto) [place] % (Auto) Eos % (Auto) Lymph # (Auto) [place] # (Auto) Eos # (Auto) Seg Neutrophils % Lymphocytes % (Manual) Monocytes % (Manual) Seg Neutrophils # Seg Neutrophils # Man Lymphocytes # (Manual) Monocytes # (Manual) D-Dimer Heparin Anti-Xa Level ABG pH POC ABG pCO2 POC ABG pO2 ABG pO2 ABG HCO3 ABG O2 Saturation ABG Base Excess ABG Hemoglobin ABG Oxyhemoglobin ABG Sodium ABG Potassium ABG Chloride ABG Glucose VBG pH Oxyhemoglobin Carboxyhemoglobin Sodium Potassium Chloride Carbon Dioxide BUN Creatinine Glucose POC Glucose 123 H 123 H 120 H Lactic Acid Calcium Phosphorus Magnesium Total Bilirubin AST ALT Ammonia Lactate Dehydrogenase Total Creatine Kinase CK-MB (CK-2) Troponin T C-Reactive Protein NT-Pro-B Natriuret Pep Total Protein Albumin Triglycerides TSH Arterial Blood Glucose Arterial Blood Ionized Calcium Urine pH Urine WBC (Auto) Urine Creatinine 11/02/20 11/02/20 11/02/20 03:14 05:37 05:37 WBC RBC Hgb 9.8 L Hct 29.5 L RDW Lymph % (Auto) [place] % (Auto) Eos % (Auto) Lymph # (Auto) [place] # (Auto) Eos # (Auto) Seg Neutrophils % Lymphocytes % (Manual) Monocytes % (Manual) Seg Neutrophils # Seg Neutrophils # Man Lymphocytes # (Manual) Monocytes # (Manual) D-Dimer Heparin Anti-Xa Level ABG pH POC ABG pCO2 58.9 H POC ABG pO2 79.9 L ABG pO2 ABG HCO3 ABG O2 Saturation ABG Base Excess ABG Hemoglobin 10.6 L ABG Oxyhemoglobin ABG Sodium ABG Potassium ABG Chloride ABG Glucose 110 H VBG pH Oxyhemoglobin Carboxyhemoglobin Sodium Potassium Chloride Carbon Dioxide 37 H BUN 28 H Creatinine Glucose 106 H POC Glucose Lactic Acid Calcium Phosphorus Magnesium Total Bilirubin AST ALT Ammonia Lactate Dehydrogenase Total Creatine Kinase CK-MB (CK-2) Troponin T C-Reactive Protein NT-Pro-B Natriuret Pep Total Protein Albumin Triglycerides TSH Arterial Blood Glucose 110 H Arterial Blood Ionized Calcium Urine pH Urine WBC (Auto) Urine Creatinine 11/02/20 11/03/20 11/03/20 23:29 04:45 04:45 WBC 11.8 H RBC 3.07 L Hgb 9.0 L Hct 27.2 L RDW Lymph % (Auto) 11.4 L [place] % (Auto) 9.5 H Eos % (Auto) Lymph # (Auto) [place] # (Auto) 1.1 H Eos # (Auto) Seg Neutrophils % 75.9 H Lymphocytes % (Manual) Monocytes % (Manual) Seg Neutrophils # 9.0 H Seg Neutrophils # Man Lymphocytes # (Manual) Monocytes # (Manual) D-Dimer Heparin Anti-Xa Level ABG pH POC ABG pCO2 POC ABG pO2 ABG pO2 ABG HCO3 ABG O2 Saturation ABG Base Excess ABG Hemoglobin ABG Oxyhemoglobin ABG Sodium ABG Potassium ABG Chloride ABG Glucose VBG pH Oxyhemoglobin Carboxyhemoglobin Sodium 146 H Potassium Chloride Carbon Dioxide 39 H BUN 26 H Creatinine Glucose POC Glucose 129 H Lactic Acid Calcium Phosphorus Magnesium Total Bilirubin AST ALT Ammonia Lactate Dehydrogenase Total Creatine Kinase CK-MB (CK-2) Troponin T C-Reactive Protein NT-Pro-B Natriuret Pep Total Protein Albumin Triglycerides TSH Arterial Blood Glucose Arterial Blood Ionized Calcium Urine pH Urine WBC (Auto) Urine Creatinine 11/03/20 11/03/20 11/03/20 05:05 11:51 17:43 WBC RBC Hgb Hct RDW Lymph % (Auto) [place] % (Auto) Eos % (Auto) Lymph # (Auto) [place] # (Auto) Eos # (Auto) Seg Neutrophils % Lymphocytes % (Manual) Monocytes % (Manual) Seg Neutrophils # Seg Neutrophils # Man Lymphocytes # (Manual) Monocytes # (Manual) D-Dimer Heparin Anti-Xa Level ABG pH 7.452 H POC ABG pCO2 55.4 H POC ABG pO2 129.1 H ABG pO2 ABG HCO3 ABG O2 Saturation ABG Base Excess ABG Hemoglobin 9.3 L ABG Oxyhemoglobin ABG Sodium ABG Potassium ABG Chloride ABG Glucose 99 H VBG pH Oxyhemoglobin Carboxyhemoglobin 1.7 H Sodium Potassium Chloride Carbon Dioxide BUN Creatinine Glucose POC Glucose 131 H 125 H Lactic Acid Calcium Phosphorus Magnesium Total Bilirubin AST ALT Ammonia Lactate Dehydrogenase Total Creatine Kinase CK-MB (CK-2) Troponin T C-Reactive Protein NT-Pro-B Natriuret Pep Total Protein Albumin Triglycerides TSH Arterial Blood Glucose 99 H Arterial Blood Ionized Calcium Urine pH Urine WBC (Auto) Urine Creatinine 11/03/20 11/04/20 11/04/20 23:27 04:00 05:10 WBC RBC Hgb Hct RDW Lymph % (Auto) [place] % (Auto) Eos % (Auto) Lymph # (Auto) [place] # (Auto) Eos # (Auto) Seg Neutrophils % Lymphocytes % (Manual) Monocytes % (Manual) Seg Neutrophils # Seg Neutrophils # Man Lymphocytes # (Manual) Monocytes # (Manual) D-Dimer Heparin Anti-Xa Level ABG pH POC ABG pCO2 POC ABG pO2 ABG pO2 ABG HCO3 ABG O2 Saturation ABG Base Excess ABG Hemoglobin ABG Oxyhemoglobin ABG Sodium ABG Potassium ABG Chloride ABG Glucose VBG pH Oxyhemoglobin Carboxyhemoglobin Sodium Potassium Chloride 95.2 L Carbon Dioxide 40 H BUN 26 H Creatinine Glucose 128 H POC Glucose 148 H 126 H Lactic Acid Calcium Phosphorus Magnesium Total Bilirubin AST ALT Ammonia Lactate Dehydrogenase Total Creatine Kinase CK-MB (CK-2) Troponin T C-Reactive Protein NT-Pro-B Natriuret Pep Total Protein Albumin Triglycerides TSH Arterial Blood Glucose Arterial Blood Ionized Calcium Urine pH Urine WBC (Auto) Urine Creatinine 11/04/20 11/04/20 11/04/20 11:39 18:00 21:18 WBC RBC Hgb Hct RDW Lymph % (Auto) [place] % (Auto) Eos % (Auto) Lymph # (Auto) [place] # (Auto) Eos # (Auto) Seg Neutrophils % Lymphocytes % (Manual) Monocytes % (Manual) Seg Neutrophils # Seg Neutrophils # Man Lymphocytes # (Manual) Monocytes # (Manual) D-Dimer Heparin Anti-Xa Level ABG pH 7.511 H POC ABG pCO2 49.0 H POC ABG pO2 ABG pO2 ABG HCO3 ABG O2 Saturation ABG Base Excess ABG Hemoglobin 9.5 L ABG Oxyhemoglobin ABG Sodium 135.7 L ABG Potassium ABG Chloride ABG Glucose 152 H VBG pH Oxyhemoglobin Carboxyhemoglobin Sodium Potassium Chloride Carbon Dioxide BUN Creatinine Glucose POC Glucose 142 H 130 H Lactic Acid Calcium Phosphorus Magnesium Total Bilirubin AST ALT Ammonia Lactate Dehydrogenase Total Creatine Kinase CK-MB (CK-2) Troponin T C-Reactive Protein NT-Pro-B Natriuret Pep Total Protein Albumin Triglycerides TSH Arterial Blood Glucose 152 H Arterial Blood Ionized Calcium 4.3 L Urine pH Urine WBC (Auto) Urine Creatinine 11/04/20 11/05/20 11/05/20 23:19 03:30 03:30 WBC RBC 3.02 L Hgb 9.1 L Hct 26.7 L RDW Lymph % (Auto) [place] % (Auto) Eos % (Auto) Lymph # (Auto) [place] # (Auto) Eos # (Auto) Seg Neutrophils % Lymphocytes % (Manual) Monocytes % (Manual) Seg Neutrophils # Seg Neutrophils # Man Lymphocytes # (Manual) Monocytes # (Manual) D-Dimer Heparin Anti-Xa Level ABG pH POC ABG pCO2 POC ABG pO2 ABG pO2 ABG HCO3 ABG O2 Saturation ABG Base Excess ABG Hemoglobin ABG Oxyhemoglobin ABG Sodium ABG Potassium ABG Chloride ABG Glucose VBG pH Oxyhemoglobin Carboxyhemoglobin Sodium Potassium Chloride 93.6 L Carbon Dioxide 40 H BUN 24 H Creatinine Glucose 121 H POC Glucose 126 H Lactic Acid Calcium Phosphorus Magnesium Total Bilirubin AST ALT Ammonia Lactate Dehydrogenase Total Creatine Kinase CK-MB (CK-2) Troponin T C-Reactive Protein NT-Pro-B Natriuret Pep Total Protein Albumin Triglycerides TSH Arterial Blood Glucose Arterial Blood Ionized Calcium Urine pH Urine WBC (Auto) Urine Creatinine 11/05/20 11/05/20 11/05/20 05:24 11:37 17:37 WBC RBC Hgb Hct RDW Lymph % (Auto) [place] % (Auto) Eos % (Auto) Lymph # (Auto) [place] # (Auto) Eos # (Auto) Seg Neutrophils % Lymphocytes % (Manual) Monocytes % (Manual) Seg Neutrophils # Seg Neutrophils # Man Lymphocytes # (Manual) Monocytes # (Manual) D-Dimer Heparin Anti-Xa Level ABG pH POC ABG pCO2 POC ABG pO2 ABG pO2 ABG HCO3 ABG O2 Saturation ABG Base Excess ABG Hemoglobin ABG Oxyhemoglobin ABG Sodium ABG Potassium ABG Chloride ABG Glucose VBG pH Oxyhemoglobin Carboxyhemoglobin Sodium Potassium Chloride Carbon Dioxide BUN Creatinine Glucose POC Glucose 124 H 125 H 153 H Lactic Acid Calcium Phosphorus Magnesium Total Bilirubin AST ALT Ammonia Lactate Dehydrogenase Total Creatine Kinase CK-MB (CK-2) Troponin T C-Reactive Protein NT-Pro-B Natriuret Pep Total Protein Albumin Triglycerides TSH Arterial Blood Glucose Arterial Blood Ionized Calcium Urine pH Urine WBC (Auto) Urine Creatinine 11/05/20 11/06/20 11/06/20 23:20 05:24 12:17 WBC RBC Hgb Hct RDW Lymph % (Auto) [place] % (Auto) Eos % (Auto) Lymph # (Auto) [place] # (Auto) Eos # (Auto) Seg Neutrophils % Lymphocytes % (Manual) Monocytes % (Manual) Seg Neutrophils # Seg Neutrophils # Man Lymphocytes # (Manual) Monocytes # (Manual) D-Dimer Heparin Anti-Xa Level ABG pH POC ABG pCO2 POC ABG pO2 ABG pO2 ABG HCO3 ABG O2 Saturation ABG Base Excess ABG Hemoglobin ABG Oxyhemoglobin ABG Sodium ABG Potassium ABG Chloride ABG Glucose VBG pH Oxyhemoglobin Carboxyhemoglobin Sodium Potassium Chloride Carbon Dioxide BUN Creatinine Glucose POC Glucose 133 H 143 H 139 H Lactic Acid Calcium Phosphorus Magnesium Total Bilirubin AST ALT Ammonia Lactate Dehydrogenase Total Creatine Kinase CK-MB (CK-2) Troponin T C-Reactive Protein NT-Pro-B Natriuret Pep Total Protein Albumin Triglycerides TSH Arterial Blood Glucose Arterial Blood Ionized Calcium Urine pH Urine WBC (Auto) Urine Creatinine 11/06/20 11/06/20 11/07/20 17:38 23:26 04:50 WBC RBC 3.24 L Hgb 9.6 L Hct 29.0 L RDW Lymph % (Auto) [place] % (Auto) 10.3 H Eos % (Auto) 6.9 H Lymph # (Auto) [place] # (Auto) Eos # (Auto) 0.5 H Seg Neutrophils % Lymphocytes % (Manual) Monocytes % (Manual) Seg Neutrophils # Seg Neutrophils # Man Lymphocytes # (Manual) Monocytes # (Manual) D-Dimer Heparin Anti-Xa Level ABG pH POC ABG pCO2 POC ABG pO2 ABG pO2 ABG HCO3 ABG O2 Saturation ABG Base Excess ABG Hemoglobin ABG Oxyhemoglobin ABG Sodium ABG Potassium ABG Chloride ABG Glucose VBG pH Oxyhemoglobin Carboxyhemoglobin Sodium Potassium Chloride Carbon Dioxide BUN Creatinine Glucose POC Glucose 139 H 117 H Lactic Acid Calcium Phosphorus Magnesium Total Bilirubin AST ALT Ammonia Lactate Dehydrogenase Total Creatine Kinase CK-MB (CK-2) Troponin T C-Reactive Protein NT-Pro-B Natriuret Pep Total Protein Albumin Triglycerides TSH Arterial Blood Glucose Arterial Blood Ionized Calcium Urine pH Urine WBC (Auto) Urine Creatinine 11/07/20 11/07/20 11/07/20 04:50 05:10 12:22 WBC RBC Hgb Hct RDW Lymph % (Auto) [place] % (Auto) Eos % (Auto) Lymph # (Auto) [place] # (Auto) Eos # (Auto) Seg Neutrophils % Lymphocytes % (Manual) Monocytes % (Manual) Seg Neutrophils # Seg Neutrophils # Man Lymphocytes # (Manual) Monocytes # (Manual) D-Dimer Heparin Anti-Xa Level ABG pH POC ABG pCO2 POC ABG pO2 ABG pO2 ABG HCO3 ABG O2 Saturation ABG Base Excess ABG Hemoglobin ABG Oxyhemoglobin ABG Sodium ABG Potassium ABG Chloride ABG Glucose VBG pH Oxyhemoglobin Carboxyhemoglobin Sodium Potassium Chloride 97.2 L Carbon Dioxide 36 H BUN 25 H Creatinine Glucose 130 H POC Glucose 115 H 118 H Lactic Acid Calcium Phosphorus Magnesium Total Bilirubin AST ALT Ammonia Lactate Dehydrogenase Total Creatine Kinase CK-MB (CK-2) Troponin T C-Reactive Protein NT-Pro-B Natriuret Pep Total Protein Albumin Triglycerides TSH Arterial Blood Glucose Arterial Blood Ionized Calcium Urine pH Urine WBC (Auto) Urine Creatinine 11/07/20 11/07/20 11/08/20 17:46 23:53 07:16 WBC RBC Hgb Hct RDW Lymph % (Auto) [place] % (Auto) Eos % (Auto) Lymph # (Auto) [place] # (Auto) Eos # (Auto) Seg Neutrophils % Lymphocytes % (Manual) Monocytes % (Manual) Seg Neutrophils # Seg Neutrophils # Man Lymphocytes # (Manual) Monocytes # (Manual) D-Dimer Heparin Anti-Xa Level ABG pH POC ABG pCO2 POC ABG pO2 ABG pO2 ABG HCO3 ABG O2 Saturation ABG Base Excess ABG Hemoglobin ABG Oxyhemoglobin ABG Sodium ABG Potassium ABG Chloride ABG Glucose VBG pH Oxyhemoglobin Carboxyhemoglobin Sodium Potassium Chloride Carbon Dioxide BUN Creatinine Glucose POC Glucose 150 H 141 H 134 H Lactic Acid Calcium Phosphorus Magnesium Total Bilirubin AST ALT Ammonia Lactate Dehydrogenase Total Creatine Kinase CK-MB (CK-2) Troponin T C-Reactive Protein NT-Pro-B Natriuret Pep Total Protein Albumin Triglycerides TSH Arterial Blood Glucose Arterial Blood Ionized Calcium Urine pH Urine WBC (Auto) Urine Creatinine 11/08/20 11/08/20 11/08/20 11:35 17:59 23:50 WBC RBC Hgb Hct RDW Lymph % (Auto) [place] % (Auto) Eos % (Auto) Lymph # (Auto) [place] # (Auto) Eos # (Auto) Seg Neutrophils % Lymphocytes % (Manual) Monocytes % (Manual) Seg Neutrophils # Seg Neutrophils # Man Lymphocytes # (Manual) Monocytes # (Manual) D-Dimer Heparin Anti-Xa Level ABG pH POC ABG pCO2 POC ABG pO2 ABG pO2 ABG HCO3 ABG O2 Saturation ABG Base Excess ABG Hemoglobin ABG Oxyhemoglobin ABG Sodium ABG Potassium ABG Chloride ABG Glucose VBG pH Oxyhemoglobin Carboxyhemoglobin Sodium Potassium Chloride Carbon Dioxide BUN Creatinine Glucose POC Glucose 148 H 118 H 131 H Lactic Acid Calcium Phosphorus Magnesium Total Bilirubin AST ALT Ammonia Lactate Dehydrogenase Total Creatine Kinase CK-MB (CK-2) Troponin T C-Reactive Protein NT-Pro-B Natriuret Pep Total Protein Albumin Triglycerides TSH Arterial Blood Glucose Arterial Blood Ionized Calcium Urine pH Urine WBC (Auto) Urine Creatinine 11/09/20 11/09/20 11/09/20 12:07 17:00 23:45 WBC RBC Hgb Hct RDW Lymph % (Auto) [place] % (Auto) Eos % (Auto) Lymph # (Auto) [place] # (Auto) Eos # (Auto) Seg Neutrophils % Lymphocytes % (Manual) Monocytes % (Manual) Seg Neutrophils # Seg Neutrophils # Man Lymphocytes # (Manual) Monocytes # (Manual) D-Dimer Heparin Anti-Xa Level ABG pH POC ABG pCO2 POC ABG pO2 ABG pO2 ABG HCO3 ABG O2 Saturation ABG Base Excess ABG Hemoglobin ABG Oxyhemoglobin ABG Sodium ABG Potassium ABG Chloride ABG Glucose VBG pH Oxyhemoglobin Carboxyhemoglobin Sodium Potassium Chloride Carbon Dioxide BUN Creatinine Glucose POC Glucose 133 H 126 H 129 H Lactic Acid Calcium Phosphorus Magnesium Total Bilirubin AST ALT Ammonia Lactate Dehydrogenase Total Creatine Kinase CK-MB (CK-2) Troponin T C-Reactive Protein NT-Pro-B Natriuret Pep Total Protein Albumin Triglycerides TSH Arterial Blood Glucose Arterial Blood Ionized Calcium Urine pH Urine WBC (Auto) Urine Creatinine 11/10/20 11/10/20 11/10/20 05:43 11:47 17:56 WBC RBC Hgb Hct RDW Lymph % (Auto) [place] % (Auto) Eos % (Auto) Lymph # (Auto) [place] # (Auto) Eos # (Auto) Seg Neutrophils % Lymphocytes % (Manual) Monocytes % (Manual) Seg Neutrophils # Seg Neutrophils # Man Lymphocytes # (Manual) Monocytes # (Manual) D-Dimer Heparin Anti-Xa Level ABG pH POC ABG pCO2 POC ABG pO2 ABG pO2 ABG HCO3 ABG O2 Saturation ABG Base Excess ABG Hemoglobin ABG Oxyhemoglobin ABG Sodium ABG Potassium ABG Chloride ABG Glucose VBG pH Oxyhemoglobin Carboxyhemoglobin Sodium Potassium Chloride Carbon Dioxide BUN Creatinine Glucose POC Glucose 111 H 136 H 110 H Lactic Acid Calcium Phosphorus Magnesium Total Bilirubin AST ALT Ammonia Lactate Dehydrogenase Total Creatine Kinase CK-MB (CK-2) Troponin T C-Reactive Protein NT-Pro-B Natriuret Pep Total Protein Albumin Triglycerides TSH Arterial Blood Glucose Arterial Blood Ionized Calcium Urine pH Urine WBC (Auto) Urine Creatinine 11/10/20 11/11/20 11/11/20 23:34 03:11 05:22 WBC RBC Hgb Hct RDW Lymph % (Auto) [place] % (Auto) Eos % (Auto) Lymph # (Auto) [place] # (Auto) Eos # (Auto) Seg Neutrophils % Lymphocytes % (Manual) Monocytes % (Manual) Seg Neutrophils # Seg Neutrophils # Man Lymphocytes # (Manual) Monocytes # (Manual) D-Dimer Heparin Anti-Xa Level ABG pH POC ABG pCO2 64.5 H POC ABG pO2 ABG pO2 ABG HCO3 ABG O2 Saturation ABG Base Excess ABG Hemoglobin 9.7 L ABG Oxyhemoglobin ABG Sodium ABG Potassium 5.0 H ABG Chloride ABG Glucose 148 H VBG pH Oxyhemoglobin Carboxyhemoglobin Sodium Potassium Chloride Carbon Dioxide BUN Creatinine Glucose POC Glucose 134 H 132 H Lactic Acid Calcium Phosphorus Magnesium Total Bilirubin AST ALT Ammonia Lactate Dehydrogenase Total Creatine Kinase CK-MB (CK-2) Troponin T C-Reactive Protein NT-Pro-B Natriuret Pep Total Protein Albumin Triglycerides TSH Arterial Blood Glucose 148 H Arterial Blood Ionized Calcium Urine pH Urine WBC (Auto) Urine Creatinine 11/11/20 11/11/20 11/11/20 08:38 11:00 12:01 WBC RBC 2.79 L Hgb 8.4 L Hct 25.4 L RDW Lymph % (Auto) [place] % (Auto) Eos % (Auto) Lymph # (Auto) [place] # (Auto) Eos # (Auto) Seg Neutrophils % Lymphocytes % (Manual) Monocytes % (Manual) Seg Neutrophils # Seg Neutrophils # Man Lymphocytes # (Manual) Monocytes # (Manual) D-Dimer Heparin Anti-Xa Level ABG pH POC ABG pCO2 POC ABG pO2 ABG pO2 ABG HCO3 ABG O2 Saturation ABG Base Excess ABG Hemoglobin ABG Oxyhemoglobin ABG Sodium ABG Potassium ABG Chloride ABG Glucose VBG pH Oxyhemoglobin Carboxyhemoglobin Sodium 136 L Potassium Chloride 97.6 L Carbon Dioxide 35 H BUN 26 H Creatinine Glucose 133 H POC Glucose 142 H Lactic Acid Calcium 8.0 L Phosphorus Magnesium Total Bilirubin AST ALT Ammonia Lactate Dehydrogenase Total Creatine Kinase CK-MB (CK-2) Troponin T C-Reactive Protein NT-Pro-B Natriuret Pep Total Protein Albumin Triglycerides TSH Arterial Blood Glucose Arterial Blood Ionized Calcium Urine pH Urine WBC (Auto) Urine Creatinine 11/11/20 11/12/20 11/12/20 23:12 05:31 07:41 WBC RBC Hgb Hct RDW Lymph % (Auto) [place] % (Auto) Eos % (Auto) Lymph # (Auto) [place] # (Auto) Eos # (Auto) Seg Neutrophils % Lymphocytes % (Manual) Monocytes % (Manual) Seg Neutrophils # Seg Neutrophils # Man Lymphocytes # (Manual) Monocytes # (Manual) D-Dimer Heparin Anti-Xa Level ABG pH POC ABG pCO2 POC ABG pO2 ABG pO2 ABG HCO3 ABG O2 Saturation ABG Base Excess ABG Hemoglobin ABG Oxyhemoglobin ABG Sodium ABG Potassium ABG Chloride ABG Glucose VBG pH Oxyhemoglobin Carboxyhemoglobin Sodium Potassium Chloride Carbon Dioxide BUN Creatinine Glucose POC Glucose 127 H 117 H 137 H Lactic Acid Calcium Phosphorus Magnesium Total Bilirubin AST ALT Ammonia Lactate Dehydrogenase Total Creatine Kinase CK-MB (CK-2) Troponin T C-Reactive Protein NT-Pro-B Natriuret Pep Total Protein Albumin Triglycerides TSH Arterial Blood Glucose Arterial Blood Ionized Calcium Urine pH Urine WBC (Auto) Urine Creatinine 11/12/20 11/12/20 11/12/20 11:26 15:29 21:30 WBC RBC Hgb Hct RDW Lymph % (Auto) [place] % (Auto) Eos % (Auto) Lymph # (Auto) [place] # (Auto) Eos # (Auto) Seg Neutrophils % Lymphocytes % (Manual) Monocytes % (Manual) Seg Neutrophils # Seg Neutrophils # Man Lymphocytes # (Manual) Monocytes # (Manual) D-Dimer Heparin Anti-Xa Level ABG pH POC ABG pCO2 POC ABG pO2 ABG pO2 ABG HCO3 ABG O2 Saturation ABG Base Excess ABG Hemoglobin ABG Oxyhemoglobin ABG Sodium ABG Potassium ABG Chloride ABG Glucose VBG pH Oxyhemoglobin Carboxyhemoglobin Sodium Potassium Chloride Carbon Dioxide BUN Creatinine Glucose POC Glucose 130 H 146 H 123 H Lactic Acid Calcium Phosphorus Magnesium Total Bilirubin AST ALT Ammonia Lactate Dehydrogenase Total Creatine Kinase CK-MB (CK-2) Troponin T C-Reactive Protein NT-Pro-B Natriuret Pep Total Protein Albumin Triglycerides TSH Arterial Blood Glucose Arterial Blood Ionized Calcium Urine pH Urine WBC (Auto) Urine Creatinine 11/13/20 11/13/20 11/13/20 05:52 07:37 15:34 WBC RBC Hgb Hct RDW Lymph % (Auto) [place] % (Auto) Eos % (Auto) Lymph # (Auto) [place] # (Auto) Eos # (Auto) Seg Neutrophils % Lymphocytes % (Manual) Monocytes % (Manual) Seg Neutrophils # Seg Neutrophils # Man Lymphocytes # (Manual) Monocytes # (Manual) D-Dimer Heparin Anti-Xa Level ABG pH POC ABG pCO2 POC ABG pO2 ABG pO2 ABG HCO3 ABG O2 Saturation ABG Base Excess ABG Hemoglobin ABG Oxyhemoglobin ABG Sodium ABG Potassium ABG Chloride ABG Glucose VBG pH Oxyhemoglobin Carboxyhemoglobin Sodium Potassium Chloride Carbon Dioxide BUN Creatinine Glucose POC Glucose 142 H 109 H 127 H Lactic Acid Calcium Phosphorus Magnesium Total Bilirubin AST ALT Ammonia Lactate Dehydrogenase Total Creatine Kinase CK-MB (CK-2) Troponin T C-Reactive Protein NT-Pro-B Natriuret Pep Total Protein Albumin Triglycerides TSH Arterial Blood Glucose Arterial Blood Ionized Calcium Urine pH Urine WBC (Auto) Urine Creatinine 11/13/20 11/13/20 11/13/20 16:43 16:52 21:18 WBC RBC Hgb Hct RDW Lymph % (Auto) [place] % (Auto) Eos % (Auto) Lymph # (Auto) [place] # (Auto) Eos # (Auto) Seg Neutrophils % Lymphocytes % (Manual) Monocytes % (Manual) Seg Neutrophils # Seg Neutrophils # Man Lymphocytes # (Manual) Monocytes # (Manual) D-Dimer Heparin Anti-Xa Level ABG pH POC ABG pCO2 68.4 H POC ABG pO2 ABG pO2 ABG HCO3 ABG O2 Saturation ABG Base Excess ABG Hemoglobin 10.0 L ABG Oxyhemoglobin ABG Sodium ABG Potassium ABG Chloride ABG Glucose 133 H VBG pH Oxyhemoglobin Carboxyhemoglobin Sodium Potassium Chloride Carbon Dioxide BUN Creatinine Glucose POC Glucose 111 H 108 H Lactic Acid Calcium Phosphorus Magnesium Total Bilirubin AST ALT Ammonia Lactate Dehydrogenase Total Creatine Kinase CK-MB (CK-2) Troponin T C-Reactive Protein NT-Pro-B Natriuret Pep Total Protein Albumin Triglycerides TSH Arterial Blood Glucose 133 H Arterial Blood Ionized Calcium Urine pH Urine WBC (Auto) Urine Creatinine 11/14/20 11/14/20 11/14/20 12:07 18:16 23:21 WBC RBC Hgb Hct RDW Lymph % (Auto) [place] % (Auto) Eos % (Auto) Lymph # (Auto) [place] # (Auto) Eos # (Auto) Seg Neutrophils % Lymphocytes % (Manual) Monocytes % (Manual) Seg Neutrophils # Seg Neutrophils # Man Lymphocytes # (Manual) Monocytes # (Manual) D-Dimer Heparin Anti-Xa Level ABG pH POC ABG pCO2 POC ABG pO2 ABG pO2 ABG HCO3 ABG O2 Saturation ABG Base Excess ABG Hemoglobin ABG Oxyhemoglobin ABG Sodium ABG Potassium ABG Chloride ABG Glucose VBG pH Oxyhemoglobin Carboxyhemoglobin Sodium Potassium Chloride Carbon Dioxide BUN Creatinine Glucose POC Glucose 107 H 109 H 114 H Lactic Acid Calcium Phosphorus Magnesium Total Bilirubin AST ALT Ammonia Lactate Dehydrogenase Total Creatine Kinase CK-MB (CK-2) Troponin T C-Reactive Protein NT-Pro-B Natriuret Pep Total Protein Albumin Triglycerides TSH Arterial Blood Glucose Arterial Blood Ionized Calcium Urine pH Urine WBC (Auto) Urine Creatinine 11/15/20 11/15/20 11/15/20 11:14 16:11 23:57 WBC RBC Hgb Hct RDW Lymph % (Auto) [place] % (Auto) Eos % (Auto) Lymph # (Auto) [place] # (Auto) Eos # (Auto) Seg Neutrophils % Lymphocytes % (Manual) Monocytes % (Manual) Seg Neutrophils # Seg Neutrophils # Man Lymphocytes # (Manual) Monocytes # (Manual) D-Dimer Heparin Anti-Xa Level ABG pH POC ABG pCO2 POC ABG pO2 ABG pO2 ABG HCO3 ABG O2 Saturation ABG Base Excess ABG Hemoglobin ABG Oxyhemoglobin ABG Sodium ABG Potassium ABG Chloride ABG Glucose VBG pH Oxyhemoglobin Carboxyhemoglobin Sodium Potassium Chloride Carbon Dioxide BUN Creatinine Glucose POC Glucose 126 H 135 H 128 H Lactic Acid Calcium Phosphorus Magnesium Total Bilirubin AST ALT Ammonia Lactate Dehydrogenase Total Creatine Kinase CK-MB (CK-2) Troponin T C-Reactive Protein NT-Pro-B Natriuret Pep Total Protein Albumin Triglycerides TSH Arterial Blood Glucose Arterial Blood Ionized Calcium Urine pH Urine WBC (Auto) Urine Creatinine 11/16/20 11/16/20 11/16/20 12:16 17:15 23:34 WBC RBC Hgb Hct RDW Lymph % (Auto) [place] % (Auto) Eos % (Auto) Lymph # (Auto) [place] # (Auto) Eos # (Auto) Seg Neutrophils % Lymphocytes % (Manual) Monocytes % (Manual) Seg Neutrophils # Seg Neutrophils # Man Lymphocytes # (Manual) Monocytes # (Manual) D-Dimer Heparin Anti-Xa Level ABG pH POC ABG pCO2 POC ABG pO2 ABG pO2 ABG HCO3 ABG O2 Saturation ABG Base Excess ABG Hemoglobin ABG Oxyhemoglobin ABG Sodium ABG Potassium ABG Chloride ABG Glucose VBG pH Oxyhemoglobin Carboxyhemoglobin Sodium Potassium Chloride Carbon Dioxide BUN Creatinine Glucose POC Glucose 138 H 128 H 146 H Lactic Acid Calcium Phosphorus Magnesium Total Bilirubin AST ALT Ammonia Lactate Dehydrogenase Total Creatine Kinase CK-MB (CK-2) Troponin T C-Reactive Protein NT-Pro-B Natriuret Pep Total Protein Albumin Triglycerides TSH Arterial Blood Glucose Arterial Blood Ionized Calcium Urine pH Urine WBC (Auto) Urine Creatinine 11/17/20 11/17/20 11/17/20 03:48 03:48 05:43 WBC RBC 3.07 L Hgb 9.2 L Hct 28.0 L RDW 15.7 H Lymph % (Auto) [place] % (Auto) 12.4 H Eos % (Auto) 6.9 H Lymph # (Auto) 0.9 L [place] # (Auto) Eos # (Auto) 0.5 H Seg Neutrophils % Lymphocytes % (Manual) Monocytes % (Manual) Seg Neutrophils # Seg Neutrophils # Man Lymphocytes # (Manual) Monocytes # (Manual) D-Dimer Heparin Anti-Xa Level ABG pH POC ABG pCO2 POC ABG pO2 ABG pO2 ABG HCO3 ABG O2 Saturation ABG Base Excess ABG Hemoglobin ABG Oxyhemoglobin ABG Sodium ABG Potassium ABG Chloride ABG Glucose VBG pH Oxyhemoglobin Carboxyhemoglobin Sodium Potassium Chloride Carbon Dioxide 36 H BUN 24 H Creatinine Glucose 126 H POC Glucose 121 H Lactic Acid Calcium Phosphorus Magnesium Total Bilirubin AST ALT Ammonia Lactate Dehydrogenase Total Creatine Kinase CK-MB (CK-2) Troponin T C-Reactive Protein NT-Pro-B Natriuret Pep Total Protein Albumin 2.9 L Triglycerides TSH Arterial Blood Glucose Arterial Blood Ionized Calcium Urine pH Urine WBC (Auto) Urine Creatinine 11/17/20 11/17/20 11/17/20 12:24 17:45 23:46 WBC RBC Hgb Hct RDW Lymph % (Auto) [place] % (Auto) Eos % (Auto) Lymph # (Auto) [place] # (Auto) Eos # (Auto) Seg Neutrophils % Lymphocytes % (Manual) Monocytes % (Manual) Seg Neutrophils # Seg Neutrophils # Man Lymphocytes # (Manual) Monocytes # (Manual) D-Dimer Heparin Anti-Xa Level ABG pH POC ABG pCO2 POC ABG pO2 ABG pO2 ABG HCO3 ABG O2 Saturation ABG Base Excess ABG Hemoglobin ABG Oxyhemoglobin ABG Sodium ABG Potassium ABG Chloride ABG Glucose VBG pH Oxyhemoglobin Carboxyhemoglobin Sodium Potassium Chloride Carbon Dioxide BUN Creatinine Glucose POC Glucose 144 H 117 H 118 H Lactic Acid Calcium Phosphorus Magnesium Total Bilirubin AST ALT Ammonia Lactate Dehydrogenase Total Creatine Kinase CK-MB (CK-2) Troponin T C-Reactive Protein NT-Pro-B Natriuret Pep Total Protein Albumin Triglycerides TSH Arterial Blood Glucose Arterial Blood Ionized Calcium Urine pH Urine WBC (Auto) Urine Creatinine 11/18/20 11/18/20 11/18/20 05:20 05:20 05:34 WBC RBC 3.17 L Hgb 9.2 L Hct 28.8 L RDW 15.4 H Lymph % (Auto) 9.7 L [place] % (Auto) 11.3 H Eos % (Auto) 5.3 H Lymph # (Auto) 0.7 L [place] # (Auto) 0.9 H Eos # (Auto) Seg Neutrophils % 73.3 H Lymphocytes % (Manual) Monocytes % (Manual) Seg Neutrophils # Seg Neutrophils # Man Lymphocytes # (Manual) Monocytes # (Manual) D-Dimer Heparin Anti-Xa Level ABG pH POC ABG pCO2 POC ABG pO2 ABG pO2 ABG HCO3 ABG O2 Saturation ABG Base Excess ABG Hemoglobin ABG Oxyhemoglobin ABG Sodium ABG Potassium ABG Chloride ABG Glucose VBG pH Oxyhemoglobin Carboxyhemoglobin Sodium Potassium Chloride Carbon Dioxide 39 H BUN 22 H Creatinine Glucose 134 H POC Glucose 139 H Lactic Acid Calcium Phosphorus Magnesium Total Bilirubin AST ALT Ammonia Lactate Dehydrogenase Total Creatine Kinase CK-MB (CK-2) Troponin T C-Reactive Protein NT-Pro-B Natriuret Pep Total Protein Albumin 3.0 L Triglycerides TSH Arterial Blood Glucose Arterial Blood Ionized Calcium Urine pH Urine WBC (Auto) Urine Creatinine 11/18/20 11/18/20 11/18/20 11:20 13:44 16:46 WBC RBC Hgb Hct RDW Lymph % (Auto) [place] % (Auto) Eos % (Auto) Lymph # (Auto) [place] # (Auto) Eos # (Auto) Seg Neutrophils % Lymphocytes % (Manual) Monocytes % (Manual) Seg Neutrophils # Seg Neutrophils # Man Lymphocytes # (Manual) Monocytes # (Manual) D-Dimer Heparin Anti-Xa Level ABG pH POC ABG pCO2 POC ABG pO2 ABG pO2 ABG HCO3 ABG O2 Saturation ABG Base Excess ABG Hemoglobin ABG Oxyhemoglobin ABG Sodium ABG Potassium ABG Chloride ABG Glucose VBG pH Oxyhemoglobin Carboxyhemoglobin Sodium Potassium Chloride Carbon Dioxide BUN Creatinine Glucose POC Glucose 136 H 121 H Lactic Acid Calcium Phosphorus Magnesium Total Bilirubin AST ALT Ammonia Lactate Dehydrogenase Total Creatine Kinase CK-MB (CK-2) Troponin T C-Reactive Protein 4.40 H NT-Pro-B Natriuret Pep Total Protein Albumin Triglycerides TSH Arterial Blood Glucose Arterial Blood Ionized Calcium Urine pH Urine WBC (Auto) Urine Creatinine 11/18/20 11/19/20 11/19/20 23:47 04:18 04:18 WBC RBC 3.15 L Hgb 9.1 L Hct 28.7 L RDW 15.7 H Lymph % (Auto) [place] % (Auto) 12.8 H Eos % (Auto) 5.0 H Lymph # (Auto) 1.1 L [place] # (Auto) Eos # (Auto) Seg Neutrophils % Lymphocytes % (Manual) Monocytes % (Manual) Seg Neutrophils # Seg Neutrophils # Man Lymphocytes # (Manual) Monocytes # (Manual) D-Dimer Heparin Anti-Xa Level ABG pH POC ABG pCO2 POC ABG pO2 ABG pO2 ABG HCO3 ABG O2 Saturation ABG Base Excess ABG Hemoglobin ABG Oxyhemoglobin ABG Sodium ABG Potassium ABG Chloride ABG Glucose VBG pH Oxyhemoglobin Carboxyhemoglobin Sodium 146 H Potassium Chloride Carbon Dioxide 40 H BUN 23 H Creatinine Glucose 121 H POC Glucose 117 H Lactic Acid Calcium Phosphorus Magnesium Total Bilirubin AST ALT Ammonia Lactate Dehydrogenase Total Creatine Kinase CK-MB (CK-2) Troponin T C-Reactive Protein NT-Pro-B Natriuret Pep Total Protein Albumin 3.1 L Triglycerides TSH Arterial Blood Glucose Arterial Blood Ionized Calcium Urine pH Urine WBC (Auto) Urine Creatinine 11/19/20 11/19/20 11/19/20 05:41 10:31 12:00 WBC RBC Hgb Hct RDW Lymph % (Auto) [place] % (Auto) Eos % (Auto) Lymph # (Auto) [place] # (Auto) Eos # (Auto) Seg Neutrophils % Lymphocytes % (Manual) Monocytes % (Manual) Seg Neutrophils # Seg Neutrophils # Man Lymphocytes # (Manual) Monocytes # (Manual) D-Dimer Heparin Anti-Xa Level ABG pH POC ABG pCO2 POC ABG pO2 ABG pO2 ABG HCO3 ABG O2 Saturation ABG Base Excess ABG Hemoglobin ABG Oxyhemoglobin ABG Sodium ABG Potassium ABG Chloride ABG Glucose VBG pH Oxyhemoglobin Carboxyhemoglobin Sodium Potassium Chloride Carbon Dioxide BUN Creatinine Glucose POC Glucose 147 H 139 H 130 H Lactic Acid Calcium Phosphorus Magnesium Total Bilirubin AST ALT Ammonia Lactate Dehydrogenase Total Creatine Kinase CK-MB (CK-2) Troponin T C-Reactive Protein NT-Pro-B Natriuret Pep Total Protein Albumin Triglycerides TSH Arterial Blood Glucose Arterial Blood Ionized Calcium Urine pH Urine WBC (Auto) Urine Creatinine 11/19/20 11/19/20 11/20/20 17:40 23:39 04:55 WBC RBC Hgb Hct RDW Lymph % (Auto) [place] % (Auto) Eos % (Auto) Lymph # (Auto) [place] # (Auto) Eos # (Auto) Seg Neutrophils % Lymphocytes % (Manual) Monocytes % (Manual) Seg Neutrophils # Seg Neutrophils # Man Lymphocytes # (Manual) Monocytes # (Manual) D-Dimer Heparin Anti-Xa Level ABG pH POC ABG pCO2 POC ABG pO2 ABG pO2 ABG HCO3 ABG O2 Saturation ABG Base Excess ABG Hemoglobin ABG Oxyhemoglobin ABG Sodium ABG Potassium ABG Chloride ABG Glucose VBG pH Oxyhemoglobin Carboxyhemoglobin Sodium Potassium Chloride Carbon Dioxide BUN Creatinine Glucose POC Glucose 165 H 133 H 124 H Lactic Acid Calcium Phosphorus Magnesium Total Bilirubin AST ALT Ammonia Lactate Dehydrogenase Total Creatine Kinase CK-MB (CK-2) Troponin T C-Reactive Protein NT-Pro-B Natriuret Pep Total Protein Albumin Triglycerides TSH Arterial Blood Glucose Arterial Blood Ionized Calcium Urine pH Urine WBC (Auto) Urine Creatinine 11/20/20 11/20/20 11/20/20 07:30 07:30 11:46 WBC RBC 2.93 L Hgb 8.7 L Hct 27.0 L RDW 15.8 H Lymph % (Auto) 11.6 L [place] % (Auto) 10.0 H Eos % (Auto) 4.4 H Lymph # (Auto) 0.9 L [place] # (Auto) Eos # (Auto) Seg Neutrophils % 73.4 H Lymphocytes % (Manual) Monocytes % (Manual) Seg Neutrophils # Seg Neutrophils # Man Lymphocytes # (Manual) Monocytes # (Manual) D-Dimer Heparin Anti-Xa Level ABG pH POC ABG pCO2 POC ABG pO2 ABG pO2 ABG HCO3 ABG O2 Saturation ABG Base Excess ABG Hemoglobin ABG Oxyhemoglobin ABG Sodium ABG Potassium ABG Chloride ABG Glucose VBG pH Oxyhemoglobin Carboxyhemoglobin Sodium Potassium Chloride Carbon Dioxide 41 H* BUN 26 H Creatinine Glucose 139 H POC Glucose 141 H Lactic Acid Calcium Phosphorus Magnesium Total Bilirubin AST ALT Ammonia Lactate Dehydrogenase Total Creatine Kinase CK-MB (CK-2) Troponin T C-Reactive Protein NT-Pro-B Natriuret Pep Total Protein Albumin 2.8 L Triglycerides TSH Arterial Blood Glucose Arterial Blood Ionized Calcium Urine pH Urine WBC (Auto) Urine Creatinine Chest x-ray: image reviewed Allied health notes reviewed: RT
[2020-11-20] MEDS: QUEtiapine 200 MG TAB PO SCH (21:00)
[2020-11-21] MEDS: cloNIDine 0.2 MG TAB PO SCH ×3 (03:59→18:20)
[2020-11-21 04:58] LABS: Basophils # (Auto) 0.1 K/mm3 (0.0-0.1); Eosinophils # (Auto) 0.3 K/mm3 (0.0-0.4); Eosinophils % (Auto) 4.3 % (0.0-4.3); Hematocrit 26.1 % (35.5-45.6); Hemoglobin 8.3 gm/dl (11.8-15.2); Lymphocytes % (Auto) 15.6 % (13.4-35.0); Mean Corpuscular HGB Conc 32 % (32-34); Mean Corpuscular Volume 92 fl (84-94); Monocytes # (Auto) 0.7 K/mm3 (0.0-0.8); Monocytes % (Auto) 11.2 % (0.0-7.3); Platelet Count 217 K/mm3 (140-440); Red Blood Count 2.84 M/mm3 (3.65-5.03); Red Cell Distribution Width 15.8 % (13.2-15.2)
[2020-11-21 05:11] LABS: Alanine Aminotransferase 9 units/L (7-56); Albumin 3.1 g/dL (3.9-5); BUN/Creatinine Ratio 25; Blood Urea Nitrogen 27 mg/dL (9-20); Calcium 8.5 mg/dL (8.4-10.2); Hemolysis Index 3
[2020-11-21] MEDS: LORazepam 2 MG/ML VIAL IV PRN ×5 (05:45→19:40)
[2020-11-21] MEDS: ACETAMINOPHEN 325 MG TAB PO PRN ×2 (06:01→22:01)
[2020-11-21] MEDS: hydrALAZINE 100 MG TAB PO SCH ×3 (06:02→22:02)
[2020-11-21] MEDS: GLYCOPYRROLATE 1 MG TAB PO SCH ×3 (06:02→22:06)
[2020-11-21] MEDS: METOPROLOL TARTRATE 50 MG TAB PO SCH ×3 (07:19→19:40)
[2020-11-21] MEDS: QUEtiapine 25 MG TAB PO SCH (09:00)
[2020-11-21] MEDS: QUEtiapine 100 MG TAB PO SCH (09:00)
[2020-11-21] MEDS: HEPARIN 5,000 UNIT/1 ML VIAL SUB-Q SCH ×2 (09:00→22:04)
[2020-11-21] MEDS: POLYETHYLENE GLYCOL 3350 17 GM POWDER PO SCH (09:01)
[2020-11-21] MEDS: amLODIPine 5 MG TAB PO SCH (09:01)
[2020-11-21] MEDS: MINOXIDIL 2.5 MG TAB PO SCH (09:01)
[2020-11-21] MEDS: levETIRAcetam 500 MG/5 ML ORAL LIQD PO SCH ×2 (09:01→22:05)
[2020-11-21] MEDS: FUROSEMIDE 20 MG TAB PO SCH (09:01)
[2020-11-21] MEDS: LANSOPRAZOLE 30 MG SOLUTAB FEEDTUBE SCH ×2 (09:02→22:08)
[2020-11-21] MEDS: DOCUSATE SODIUM 100 MG/10 ML ORAL LIQD PO SCH ×2 (09:03→22:04)
--- NOTE | 2020-11-21 09:08 | Progress Note ---
Assessment and Plan Assessment and plan: This is a 55-year-old male with hypertension, asthma, obesity who was admitted on 10/10 after cardiac arrest x2 (supposedly after COVID-19 vaccine injection), sepsis, right-sided pneumonia, NSTEMI type II, acute heart failure, acute hypoxic respiratory failure, acute kidney injury and anoxic brain injury. #Acute hypoxic respiratory failure Status post multiple cardiac arrest Now on trach collar #Status post cardiac arrest Now unresponsive with anoxic brain injury Family wants full code #MRSA pneumonia Started on vancomycin #Hypertension Continue medications #Status post PEG placement Continue tube feeds #NSTEMI Continue current medications #Atrial flutter Currently rate controlled Cardiology recommendations appreciated #Seizure disorder Continue Keppra GI/DVT prophylaxis: SCDs to bilateral lower extremities while in bed, PPI, Heparin subq Dispo: custodial facility versus LTAC History Interval history: This is a 55-year-old male with hypertension, asthma, obesity in the emergency by presented to the emergency department on 10/10 after receiving a Covid vaccine being found unresponsive in his car in the emergency room bay with no pulse and ACLS protocol was initiated from his car to emergency room #21 where it was continued. Patient was intubated after ROSC was achieved and a central line was placed and the patient was initiated on pressors. In the emergency room patient seems to have seizure-like activity and then collapsed and was unresponsive with no palpable pulse and ACLS was again initiated patient with achievement of ROSC. Patient again coded with ACLS protocol in the CT room. Upon arrival to the ICU patient again coded and ROSC was achieved and he was placed on epinephrine, Lasix, heparin and sodium bicarbonate drip and sedated with propofol. An NG tube was placed, A-line was placed. Patient was admitted to the hospitalist service with consult to [facility], nephrology, infectious disease and cardiology. 10/11: Patient COVID-19 PCR is pending and he remains on mechanical ventilation, examination on assist control 400//12/0.95. Patient is scheduled for an echocardiogram and we will obtain bilateral lower extremity Doppler ultrasound given elevated D-dimer. Patient was supposed to have a CTA chest when he coded yesterday. We will begin trickle feeding. This morning patient was on a heparin drip and was noted to have bloody drainage from his NG tube. Heparin drip was discontinued. 10/12: Patient remains on propofol and Lasix drip at the time my examination and he is on assist control 400/25/12/0.60. Patient is hypokalemic this morning which was repleted. Nephrology discontinued Lasix drip and Diamox. Patient is hypertensive and has been started on hydralazine and beta-shital IV. He has been titrated off his vasopressors since yesterday. Vancomycin discontinued. Patient is currently on cefepime and azithromycin. 10/13: Sedation vacation attempted today and patient was not responsive to verbal or painful stimuli, does not track or focus or follow commands. This morning the patient has some respiratory alkalosis on ABG, hypernatremia and metabolic alkalosis on BMP. His kidney functions has improved slightly. Patient still has leukocytosis and infectious disease was like to continue antibiotic therapy. GI evaluated the patient yesterday and started the patient on PPI does not plan to scope at this time. At the time my examination patient assist-control 400/20/12/0.40 and sedated on propofol at 20. /: GI has recommended a CT abdomen since there is increased output from OG tube and an MRI brain without contrast has been ordered per neurology recommendations. EEG is pending and the patient has been started on Keppra per neurology.. Nutrition has been consulted for initiation of parenteral nutrition. Patient remains sedated with propofol and his hypernatremia, leukocytosis, acute kidney injury and metabolic alkalosis is improving. Patient has hypokalemia today which was repleted. At the time of my examination patient was on assist control 400/14/10/0.40 and CCM has dropped his rate to 12 and PEEP to 8. We have labs ordered for a.m. He was given a clonidine patch given persistent hypertension and he remains on D5 water per nephrology. 3: This morning patient was started to have a low-grade fever and he will continue antibiotic therapy per infectious disease. He will remove Tuttle catheter today and place a condom cath. Patient's renal function is worsening with a BUN/creatinine of 57/2.4 today and he has hyperphosphatemia at 5.2. This morning the time my examination patient is sedated on fentanyl and has TPN infusing. He is on assist control 400/12/8/0.35. Per GI we will start trial of tube feedings initiation has been reconsulted for orders. 10/18: Patient was febrile overnight and infectious disease has recultured (blood/sputum/right nostril culture) and sent in urinalysis. Cefepime was extended due to high fever and was started on vancomycin. Tube feeding is at goal and we will discontinue his parenteral nutrition. Patient is unable to obtain his MRI due to increased hypoxia and nasal secretions. He will be started on CPAP trials today. This time I examination patient was sedated on fentanyl and had PPN running at 42. His renal function tests have worsened and now has hyperchloremia. Hypernatremia has resolved. 10/19: Patient's T-max was 100.2 and he was pancultured yesterday, remains on antibiotic therapy and still has copious drainage from his nostrils. Patient still has leukocytosis however his/creatinine improved slightly to 3.1 from 3.3. Patient's urinalysis from yesterday shows pyuria. Patient's tracheal aspirate from yesterday grew Staph aureus. Patient is on cefepime and vancomycin. 10/20: This morning at the time my examination patient was CPAP trial of 04/19 and his T-max was 100.9. Patient sedated on fentanyl at 2 just received IV push fentanyl for tachycardia. Today his creatinine is 2.8 from 3.1 yesterday. Infectious disease has stopped cefepime and vancomycin and started linezolid and MRSA PCR is pending. Today removed his NG tube and replaced it with OG tube. We will keep the patient normal saline at 75 mL's per hour for 3 L. Patient developed A. fib/a flutter overnight and cardiology has increased his Lopressor and IV amiodarone. We requested neurology evaluation today. 10/21: Cardiology we will increase Lopressor to 3 times daily and discontinue his amiodarone drip. Infectious disease would like a sinus CT when feasible however patient did have a moment of desatting earlier this week when we attempted MRI brain. And again yesterday when we attempted a "trial run" with positioning at bedside Patient is on linezolid for 10 days per ID. 10/22/20; patient was seen and evaluated this morning, patient had low-grade fever overnight. Patient is on Lopressor per cardiology recommendation. Patient did not follow commands, no improvement in mental status. Evaluated by neurology yesterday and neurology once MRI or CAT scan but cannot be done because patient desats when he lies flat. Patient is on linezolid per ID recommendation. Continue NG tube feeding. Continue with Keppra. Patient is on assist control with PEEP of 6. Management plan was discussed with his yesterday. 10/23/2020; patient is on Zyvox for positive MRSA from tracheal aspirate and nasal secretion culture. Patient's mentation did not improve and does not follow commands. He was reevaluated by neurology and recommend MRI once patient is able to tolerate. MRI could not be done, CT scan could not be done because the patient could not lie flat. Clinically patient looks like she has anoxic encephalopathy. Patient is on NG tube feeding and on mechanical ventilation. Patient is on Keppra. Management plan was discussed with his . 10/24: This morning the patient is on AC TV 400,R 16, Peep 6 and FiO2 of 30% and sedated on 1mcg of Fentayl. He is hypernatremic and his kidney function tests have slightly improved. RN will attempt to obtain MRI Brain today since the pat ient was able to tolerate a "trial run" of being flat. [facility] plans to resume CPAP trials once MRI obtained. 10/25: This morning the time of examination patient was on assist control tidal volume 400, rate 16, PEEP 6, FiO2 30% and he is currently on CPAP. His MRI brain finding is consistent with status epilepticus or anoxic brain injury. Patient is EEG pending. No acute overnight events reported. 10/26: Patient has been on a CPAP trial 14/6 which she has been tolerating. Surgery was consulted for trach/PEG. Patient's hypernatremia and hyperchloremia slightly better as well as his kidney functions. He has received cardiac clearance for his trach and PEG. No acute events reported overnight. 10/27: At the time my examination patient was on CPAP trial 15/6 and 30% FiO2. Patient's electrolyte abnormalities were improving and sources kidney function. His T-max overnight was 99.3 and he remains on linezolid. No acute events reported overnight. 10/28: Yesterday patient had a trach and PEG placed. Patient remains n.p.o. as he has not been cleared by surgery to resume p.o. intake. Today he has slight leukocytosis which is likely reactive, hyponatremia, metabolic alkalosis however his kidney function continues to improve. No acute events overnight. 10/29: Plan to start tube feeding today, patient remains on mechanical ventilation with trach tube. Remains comatose without any change in mental status. Called and updated. 10/30: Vitals stable, patient remains on trach tube with ventilator. Tolerating tube feeding, otherwise clinically unchanged. Continue to provide supportive care and wean off from vent as tolerated. 10/31: No acute events reported overnight. Patient is CPAP at the time my examination however he will be tried on trach collar and we will obtain an ABG within 2 hours. 11/01. Patient is on a trach collar at 35% FiO2, he was reported, patient received Lasix and will obtain an ABG at 2100. dr. Uribe updated his and his mother is at bedside visiting him. 11/02. Patient was rested on assist control due to "tube feedings" endotracheal tube however CXR looks mild atelectasis rather than pneumonia. [facility] has given the patient another dose of Lasix and will obtain a CXR in the a.m. Patient remains with low-grade fever and we will resume daily SBT as tolerated. We will obtain a.m. labs and resume tube feedings. 11/03: Overnight the patient was rested on assist control and this afternoon he received CPAP trials. Patient's CXR looks pulmonary edema and he received additional 20 mg of Lasix today and tomorrow. Dr. Uribe updated the p atient's family via phone today and they do not wish to change his code status. Patient's Robinul and scopolamine was decreased. 11/04: Patient was started on Mucomyst due to thick secretion, will continue gentle diuresis and again began T-piece trials. Pa this time my examination he was on CPAP trial 10 and was rested overnight, assist control. According to documentation patient rested on CPAP trial yesterday for approximately 4-1/2 hours. No acute events reported overnight. 11/05 patient improved with Mucomyst. Attempted weaning to begin T-piece trial. Physical examination consistent with anoxia 11/06. No new events over p.m. Secretions appear to be controlled. Updated family today. All questions and concerns answered to family satisfaction. 11/07: T-piece trials to resume. No acute events overnight. Continue current care. PT/OT consult. Transfer to IMCU. 11/09/2020. No new issues. Continue trach care, secretion control and airway management. Continue tube feedings which the patient is tolerating. Gastrostomy tube care. 11/11: Patient has remained on T-piece for 24 hours and he will be transferred to the floor. He is restarted on Mucomyst today per [facility]. 11/12: The patient was transferred to the floor yesterday and remained stable on T-piece. Continue tracheostomy care, secretion control and airway management. Continue Mucomyst. -10/24 MRI Brain shows restricted diffusion and increased T2 signal cerebral cortex which can be seen in the setting of anoxic brain injury and/ or status epilepticus. -10/26 EEG shows significant generalized slowing compatible with to moderate severe diffuse neuropathy recently compatible with anoxic/ischemic encephalopathy 11/13: Patient remains on T-piece with oxygen at 8 L/min and saturations of 97%. Continue tracheostomy care secretion control and airway management. Gastrostomy tube care. Tube feedings with aspiration precaution. 11/14: Patient with an episode yesterday evening of tachypnea and desaturation. Also, patient noted to have distended abdomen/bladder which is likely causing respiratory distress. Tuttle was placed for urinary retention. ABG revealed pH 7.3, PCO2 68 and PO2 of 101. Pulmonology made no changes. Patient still on T- piece at 10 L/min with FiO2 35%. Continue tracheostomy care secretion control and airway management. Gastrostomy tube care. Tube feedings with aspiration precaution. 11/15. Has thick secretions from the tracheostomy. Remains on 6 L of oxygen. Tuttle was placed yesterday for distended bladder. 11/16. Not responsive. Temp spikes noted - 100.2F. Will get sputum culture. Continue oxygen supplementation. Needs placement. Discussed with patients spouse today. 11/17. Waiting for placement. Has [employer] insurance. He remains unresponsive. Temp 99.7. Chest xray, sputum culture pending. 11/18 patient is awake, confused, nonverbal and does not follow simple commands, bilateral wrist restraints, lab results reviewed, chart and all interdisciplinary notes reviewed. Discussed with ID Dr. Marquez to reconsult on the patient 11/19 patient earlier this morning went into respiratory arrest. He was successfully resuscitated. Tracheostomy tube changed. Actively suctioned. Stat chest x-ray were was ordered. Called patient's to discuss his CODE STATUS. She wants me to call her back in about 10 minutes. Patient remains unresponsive ID note reviewed. Poor prognosis. 11/20 resting comfortably, not in distress, lab results reviewed, I had extensive multiple discussions with patient's and patient's mother. Mother wants patient to be a full code and do everything possible to keep him alive 11/21. Remains unresponsive to calls. Family wants him to be full code. On vancomycin for MRSA. Hospitalist Physical - Physical exam Narrative exam: VITAL SIGNS: Reviewed. GENERAL: Awake. Not responsive HEAD: No signs of head trauma. EYES: Pupils are equal. MOUTH: Oropharynx is normal. NECK: No adenopathy, no JVD. Trach in place CHEST: Rales bilaterally CARDIAC: normal S1 and S2, without murmurs, gallops, or rubs. ABDOMEN: Soft, non tender and non distended. No rebound or guarding, and no masses palpated. Bowel Sounds normal. MUSCULOSKELETAL: No edema NEUROLOGIC EXAM: Not responsive SKIN: No obvious lesions - Constitutional Vitals: Temp Pulse Resp BP Pulse Ox 99.4 F 74 23 153/82 100 11/21/20 08:00 11/21/20 09:01 11/21/20 08:00 11/21/20 08:00 11/21/20 08:00 HEART Score - HEART Score EKG: Non-specific Age: 45-65 Troponin: Troponin T 0.125 ng/mL (0.00-0.029) H* D 10/12/20 04:00 Troponin: 1-3x normal limit - Critical Actions Critical Actions: 4-6 pts:12-16.6% risk of adverse cardiac event. Should be admitted Results - Labs CBC & Chem 7: 11/21/20 04:00 11/21/20 04:00 Labs: Laboratory Last Values WBC 6.4 K/mm3 (4.5-11.0) 11/21/20 04:00 RBC 2.84 M/mm3 (3.65-5.03) L 11/21/20 04:00 Hgb 8.3 gm/dl (11.8-15.2) L 11/21/20 04:00 Hct 26.1 % (35.5-45.6) L 11/21/20 04:00 MCV 92 fl (84-94) 11/21/20 04:00 MCH 29 pg (28-32) 11/21/20 04:00 MCHC 32 % (32-34) 11/21/20 04:00 RDW 15.8 % (13.2-15.2) H 11/21/20 04:00 Plt Count 217 K/mm3 (140-440) 11/21/20 04:00 Lymph % (Auto) 15.6 % (13.4-35.0) 11/21/20 04:00 [place] % (Auto) 11.2 % (0.0-7.3) H 11/21/20 04:00 Eos % (Auto) 4.3 % (0.0-4.3) 11/21/20 04:00 Baso % (Auto) 1.0 % (0.0-1.8) 11/21/20 04:00 Lymph # (Auto) 1.0 K/mm3 (1.2-5.4) L 11/21/20 04:00 [place] # (Auto) 0.7 K/mm3 (0.0-0.8) 11/21/20 04:00 Eos # (Auto) 0.3 K/mm3 (0.0-0.4) 11/21/20 04:00 Baso # (Auto) 0.1 K/mm3 (0.0-0.1) 11/21/20 04:00 Add Manual Diff Complete 10/10/20 18:18 Total Counted 100 10/10/20 18:18 Seg Neutrophils % 67.9 % (40.0-70.0) 11/21/20 04:00 Seg Neuts % (Manual) 60.0 % (40.0-70.0) 10/10/20 18:18 Band Neutrophils % 27.0 % 10/10/20 18:18 Lymphocytes % (Manual) 4.0 % (13.4-35.0) L 10/10/20 18:18 Monocytes % (Manual) 9.0 % (0.0-7.3) H 10/10/20 18:18 Eosinophils % (Manual) 4.0 % (0.0-4.3) 10/10/20 10:48 Metamyelocytes % 1.0 % 10/10/20 10:48 Nucleated RBC % Not Reportable 10/10/20 18:18 Seg Neutrophils # 4.3 K/mm3 (1.8-7.7) 11/21/20 04:00 Seg Neutrophils # Man 13.8 K/mm3 (1.8-7.7) H 10/10/20 18:18 Band Neutrophils # 6.2 K/mm3 10/10/20 18:18 Lymphocytes # (Manual) 0.9 K/mm3 (1.2-5.4) L 10/10/20 18:18 Abs React Lymphs (Man) 0.0 K/mm3 10/10/20 18:18 Monocytes # (Manual) 2.1 K/mm3 (0.0-0.8) H 10/10/20 18:18 Eosinophils # (Manual) 0.0 K/mm3 (0.0-0.4) 10/10/20 18:18 Basophils # (Manual) 0.0 K/mm3 (0.0-0.1) 10/10/20 18:18 Metamyelocytes # 0.0 K/mm3 10/10/20 18:18 Myelocytes # 0.0 K/mm3 10/10/20 18:18 Promyelocytes # 0.0 K/mm3 10/10/20 18:18 Blast Cells # 0.0 K/mm3 10/10/20 18:18 WBC Morphology Not Reportable 10/10/20 18:18 Hypersegmented Neuts Not Reportable 10/10/20 18:18 Hyposegmented Neuts Not Reportable 10/10/20 18:18 Hypogranular Neuts Not Reportable 10/10/20 18:18 Smudge Cells Not Reportable 10/10/20 18:18 Toxic Granulation Not Reportable 10/10/20 18:18 Toxic Vacuolation Not Reportable 10/10/20 18:18 Dohle Bodies Not Reportable 10/10/20 18:18 Pelger-Huet Anomaly Not Reportable 10/10/20 18:18 Dionicio Rods Not Reportable 10/10/20 18:18 Platelet Estimate Consistent w auto 10/10/20 18:18 Clumped Platelets Not Reportable 10/10/20 18:18 Plt Clumps, EDTA Not Reportable 10/10/20 18:18 Large Platelets Rare 10/10/20 18:18 Giant Platelets Rare 10/10/20 18:18 Platelet Satelliting Not Reportable 10/10/20 18:18 Plt Morphology Comment Not Reportable 10/10/20 18:18 RBC Morphology Not Reportable 10/10/20 18:18 Dimorphic RBCs Not Reportable 10/10/20 18:18 Polychromasia Not Reportable 10/10/20 18:18 Hypochromasia Not Reportable 10/10/20 18:18 Poikilocytosis Not Reportable 10/10/20 18:18 Anisocytosis Not Reportable 10/10/20 18:18 Microcytosis Not Reportable 10/10/20 18:18 Macrocytosis Not Reportable 10/10/20 18:18 Spherocytes Not Reportable 10/10/20 18:18 Pappenheimer Bodies Not Reportable 10/10/20 18:18 Sickle Cells Not Reportable 10/10/20 18:18 Target Cells Not Reportable 10/10/20 18:18 Tear Drop Cells Not Reportable 10/10/20 18:18 Ovalocytes Not Reportable 10/10/20 18:18 Helmet Cells Not Reportable 10/10/20 18:18 [place] Bodies Not Reportable 10/10/20 18:18 [place] Rings Not Reportable 10/10/20 18:18 Adelfo Cells Not Reportable 10/10/20 18:18 Bite Cells Not Reportable 10/10/20 18:18 Crenated Cell Not Reportable 10/10/20 18:18 Elliptocytes Not Reportable 10/10/20 18:18 Acanthocytes (Spur) Not Reportable 10/10/20 18:18 Rouleaux Not Reportable 10/10/20 18:18 Hemoglobin C Crystals Not Reportable 10/10/20 18:18 Schistocytes Not Reportable 10/10/20 18:18 Malaria parasites Not Reportable 10/10/20 18:18 Mauricio Bodies Not Reportable 10/10/20 18:18 Hem Pathologist Commnt No 10/10/20 18:18 PT 13.5 Sec. (12.2-14.9) 10/28/20 07:00 INR 1.05 (0.87-1.13) 10/28/20 07:00 APTT 26.9 Sec. (24.2-36.6) 10/10/20 18:18 D-Dimer 679.5 ng/mlDDU (0-234) H 10/10/20 10:48 Heparin Anti-Xa Level 0.22 U.I./ml (0.3-0.7) L 10/11/20 08:35 ABG pH 7.374 (7.320-7.450) 11/13/20 16:43 POC ABG pCO2 68.4 mmHg (32.0-48.0) H 11/13/20 16:43 ABG pCO2 55.5 mm Hg 10/16/20 05:10 POC ABG pO2 101.9 mmHg (83-108) 11/13/20 16:43 ABG pO2 104.5 mm Hg (80.0-90.0) H 10/16/20 05:10 POC ABG HCO3 39.0 11/13/20 16:43 ABG HCO3 35.1 mmol/L (20.0-26.0) H 10/16/20 05:10 ABG O2 Saturation 97.8 (0-100) 11/13/20 16:43 ABG O2 Content 10.8 (0.0-44) 10/16/20 05:10 POC ABG Base Excess 11.7 11/13/20 16:43 ABG Base Excess 9.5 mmol/L (-2.0-3.0) H 10/16/20 05:10 ABG Hemoglobin 10.0 (12.0-17.5) L 11/13/20 16:43 ABG Oxyhemoglobin 96.7 (94-98) 11/13/20 16:43 ABG Carboxyhemoglobin 1.9 % (0.0-5.0) 10/16/20 05:10 ABG Methemoglobin 0.3 (0.0-1.5) 11/13/20 16:43 ABG Sodium 140.6 mmol/L (136.0-145.0) 11/13/20 16:43 ABG Potassium 4.2 mmol/L (3.40-4.50) 11/13/20 16:43 ABG Chloride 98.0 mmol/L (98-107) 11/13/20 16:43 ABG Glucose 133 mg/dL (65-95) H 11/13/20 16:43 VBG pH 6.870 (7.320-7.420) L* 10/10/20 10:48 Oxyhemoglobin 95.3 % (95.0-99.0) 10/16/20 05:10 Carboxyhemoglobin 0.8 (0.5-1.5) 11/13/20 16:43 FiO2 35 % 10/16/20 05:10 FiO2 % 35.0 11/13/20 16:43 Sodium 145 mmol/L (137-145) 11/21/20 04:00 Potassium 4.4 mmol/L (3.6-5.0) 11/21/20 04:00 Chloride 100.2 mmol/L (98-107) 11/21/20 04:00 Carbon Dioxide 40 mmol/L (22-30) H 11/21/20 04:00 Anion Gap 9 mmol/L 11/21/20 04:00 BUN 27 mg/dL (9-20) H 11/21/20 04:00 Creatinine 1.1 mg/dL (0.8-1.3) 11/21/20 04:00 Estimated GFR > 60 ml/min 11/21/20 04:00 BUN/Creatinine Ratio 25 % 11/21/20 04:00 Glucose 142 mg/dL (75-100) H 11/21/20 04:00 POC Glucose 126 mg/dL (70-105) H 11/21/20 00:19 Hemoglobin A1c 6.0 % (4-6) 10/11/20 02:00 Lactic Acid 1.10 mmol/L (0.7-2.0) 10/13/20 04:52 Calcium 8.5 mg/dL (8.4-10.2) 11/21/20 04:00 Phosphorus 5.20 mg/dL (2.5-4.5) H D 10/17/20 03:32 Magnesium 2.30 mg/dL (1.7-2.3) 10/17/20 03:32 Ferritin 81.4 ng/mL (30.0-300.0) 10/10/20 10:48 Total Bilirubin 0.20 mg/dL (0.1-1.2) 11/21/20 04:00 AST 12 units/L (5-40) 11/21/20 04:00 ALT 9 units/L (7-56) 11/21/20 04:00 Alkaline Phosphatase 81 units/L (35-129) 11/21/20 04:00 Ammonia 214.0 umol/L (25-60) H 10/10/20 10:46 Lactate Dehydrogenase 386 units/L (91-180) H 10/10/20 10:48 Total Creatine Kinase 1192 units/L (55-170) H 10/10/20 18:18 CK-MB (CK-2) 21.7 ng/mL (0.0-4.0) H 10/10/20 18:18 CK-MB (CK-2) Rel Index 1.8 (0-4) 10/10/20 18:18 Troponin T 0.125 ng/mL (0.00-0.029) H* D 10/12/20 04:00 C-Reactive Protein 4.40 mg/dL (0.00-1.30) H 11/18/20 13:44 NT-Pro-B Natriuret Pep 1187 pg/mL (0-900) H 10/10/20 10:46 Total Protein 6.4 g/dL (6.3-8.2) 11/21/20 04:00 Albumin 3.1 g/dL (3.9-5) L 11/21/20 04:00 Albumin/Globulin Ratio 0.9 % 11/21/20 04:00 Triglycerides 278 mg/dL (2-149) H 10/13/20 04:52 Cholesterol 138 mg/dL (50-199) 10/10/20 18:18 LDL Cholesterol Direct 76 mg/dL (50-130) 10/10/20 18:18 HDL Cholesterol 49 mg/dL (40-59) 10/10/20 18:18 Cholesterol/HDL Ratio 2.81 % 10/10/20 18:18 Procalcitonin 0.22 ng/mL (<0.15) 11/18/20 13:44 TSH 6.260 mlU/mL (0.270-4.200) H 10/10/20 10:46 Arterial Blood Glucose 133 mg/dL (65-95) H 11/13/20 16:43 Arterial Blood Ionized Calcium 4.7 mg/dL (4.6-5.3) 11/13/20 16:43 Urine Color Angelica (Yellow) 10/18/20 Unknown Urine Turbidity Cloudy (Clear) 10/18/20 Unknown Urine pH 5.0 (5.0-7.0) 10/18/20 Unknown Ur Specific [place] 1.017 (1.003-1.030) 10/18/20 Unknown Urine Protein 100 mg/dl mg/dL (Negative) 10/18/20 Unknown Urine Glucose (UA) Neg mg/dL (Negative) 10/18/20 Unknown Urine Ketones Neg mg/dL (Negative) 10/18/20 Unknown Urine Blood Lg (Negative) 10/18/20 Unknown Urine Nitrite Neg (Negative) 10/18/20 Unknown Urine Bilirubin Neg (Negative) 10/18/20 Unknown Urine Urobilinogen 4.0 mg/dL (<2.0) 10/18/20 Unknown Ur Leukocyte Esterase Neg (Negative) 10/18/20 Unknown Urine WBC (Auto) 115.0 /HPF (0.0-6.0) H 10/18/20 Unknown Urine RBC (Auto) 98.0 /HPF (0.0-6.0) 10/18/20 Unknown U Epithel Cells (Auto) 2.0 /HPF (0-13.0) 10/18/20 Unknown Urine WBC Clumps 3+ /HPF 10/18/20 Unknown Urine Mucus Few /HPF 10/11/20 13:30 Urine Eosinophils None seen (None Seen) 10/11/20 13:30 Urine Creatinine 93.7 mg/dL (0.1-20.0) H 10/19/20 13:14 Urine Sodium 25 mmol/L 10/19/20 13:14 Urine Urea Nitrogen 845 10/19/20 13:14 Nasal Screen MRSA (PCR) Positive (Negative) 10/20/20 13:30 Random Vancomycin 5.8 ug/mL (0-40.0) 10/21/20 06:30 Urine Opiates Screen Negative 10/10/20 10:50 Urine Methadone Screen Negative 10/10/20 10:50 Ur Barbiturates Screen Negative 10/10/20 10:50 Ur Phencyclidine Scrn Negative 10/10/20 10:50 Ur Amphetamines Screen Negative 10/10/20 10:50 U Benzodiazepines Scrn Negative 10/10/20 10:50 Urine Cocaine Screen Negative 10/10/20 10:50 U Marijuana (THC) Screen Positive 10/10/20 10:50 Drugs of Abuse Note Disclamer 10/10/20 10:50 Plasma/Serum Alcohol < 0.01 % (0-0.07) 10/10/20 10:48 Coronavirus (PCR) Negative (Negative) 10/11/20 Unknown Blood Type AB POSITIVE 10/10/20 10:48 Antibody Screen Negative 10/10/20 10:48 [place]uttle/IV: Voiding Method Indwelling Catheter Active Medications - Current Medications Current Medications: Generic Name Dose Route Start Last Admin Trade Name Freq PRN Reason Stop Dose Admin Acetaminophen 650 mg 10/10/20 21:51 11/21/20 06:01 Acetaminophen 325 Mg Tab PO 650 mg Q4H PRN Administration Pain MILD(1-3)/Fever >100.5/SALVADOR Albuterol 2.5 mg 10/11/20 13:12 11/14/20 09:54 Albuterol 2.5 Mg/3 Ml Nebu IH 2.5 mg Q6HRT PRN Administration Shortness Of Breath Amlodipine Besylate 5 mg 11/20/20 12:00 11/21/20 09:01 Amlodipine 5 Mg Tab PO 5 mg QDAY PEPITO Administration Lipase/Protease/Amylase 1 each 10/10/20 22:18 Lipase 10,500/Protease 25,000/Amylase 43,750 (Units) Dr Santana FEEDTUBE PRN PRN For Clogged Feeding Tube Clonidine HCl 0.2 mg 11/18/20 11:00 11/21/20 03:59 Clonidine 0.2 Mg Tab PO 0.2 mg Q8H PEPITO Administration Docusate Sodium 100 mg 10/16/20 22:00 11/21/20 09:03 Docusate Sodium 100 Mg/10 Ml Oral Liqd PO Not Given BID PEPITO Fentanyl 1 applic 11/09/20 18:00 11/18/20 18:21 Fentanyl 25 Mcg/Hr Patch 72hr TD 1 applic Q72H PEPITO Administration Furosemide 20 mg 11/18/20 11:00 11/21/20 09:01 Furosemide 20 Mg Tab PO 20 mg QDAY PEPITO Administration Glycopyrrolate 1 mg 11/04/20 14:00 11/21/20 06:02 Glycopyrrolate 1 Mg Tab PO 1 mg Q8HR PEPITO Administration Heparin Sodium (Porcine) 5,000 unit 10/11/20 22:00 11/21/20 09:00 Heparin 5,000 Unit/1 Ml Vial SUB-Q 5,000 unit Q12HR PEPITO Administration Hydralazine HCl 10 mg 11/02/20 08:46 11/14/20 12:01 Hydralazine 20 Mg/1 Ml Inj IV 10 mg Q6H PRN Administration Hypertension Hydralazine HCl 100 mg 11/10/20 06:00 11/21/20 06:02 Hydralazine 100 Mg Tab PO 100 mg Q8HR PEPITO Administration Hydromorphone HCl 0.5 mg 11/01/20 20:55 11/15/20 16:17 Hydromorphone 1 Mg/1 Ml Inj IV 0.5 mg Q3H PRN Administration Pain , Severe (7-10) Hydrophilic Ointment 1 applic 10/10/20 10:34 11/18/20 13:47 Lip Therapy Vaseline TP 1 applic Q2HR PRN Administration Dry Lips Vancomycin HCl 2,000 mg/ 540 mls @ 250 mls/hr 11/19/20 13:00 11/20/20 14:19 Sodium Chloride IV 11/22/20 15:10 250 mls/hr Q24H PEPITO Administration Lansoprazole 30 mg 10/24/20 10:00 11/21/20 09:02 Lansoprazole 30 Mg Solutab FEEDTUBE 30 mg BID PEPITO Administration Levetiracetam 500 mg 10/31/20 10:00 11/21/20 09:01 Levetiracetam 500 Mg/5 Ml Oral Liqd PO 500 mg BID PEPITO Administration Lorazepam 1 mg 11/19/20 17:20 11/21/20 08:12 Lorazepam 2 Mg/Ml Vial IV 1 mg Q1H PRN Administration Agitation Metoprolol Tartrate 100 mg 10/21/20 14:00 11/21/20 07:19 Metoprolol Tartrate 50 Mg Tab PO 100 mg TID PEPITO Administration Minoxidil 2.5 mg 11/17/20 10:00 11/21/20 09:01 Minoxidil 2.5 Mg Tab PO 2.5 mg QDAY PEPITO Administration Multi-Ingred Cream/Lotion/Oil/Oint 1 applic 10/10/20 10:34 11/18/20 16:53 Mineral Oil/Petrolatum, White Ophth Oint 3.5 Gm OU 1 applic Q4HR PRN Administration Dry Eye(s) Ondansetron HCl 4 mg 10/10/20 21:51 11/01/20 20:48 Ondansetron 4 Mg/2 Ml Inj IV 4 mg Q3H PRN Administration Nausea And Vomiting Polyethylene Glycol 17 gm 10/17/20 10:00 11/21/20 09:01 Polyethylene Glycol 3350 17 Gm Powder PO 17 gm QDAY PEPITO Administration Quetiapine Fumarate 100 mg 11/02/20 10:00 11/21/20 09:00 Quetiapine 100 Mg Tab PO 100 mg DAILY PEPITO Administration Quetiapine Fumarate 200 mg 11/07/20 22:00 11/20/20 21:00 Quetiapine 200 Mg Tab PO 200 mg QHS PEPITO Administration Quetiapine Fumarate 25 mg 11/07/20 14:00 11/21/20 09:00 Quetiapine 25 Mg Tab PO 25 mg DAILY PEPITO Administration Scopolamine 1 each 10/17/20 10:00 11/19/20 11:14 Scopolamine Transdermal Patch 72 Hr TD 1 each Q3D PEPITO Administration Simple Syrup 15 ml 10/10/20 22:18 Simple Syrup 15 Ml FEEDTUBE PRN PRN Hypoglycemia Simple Syrup 30 ml 10/10/20 22:18 Simple Syrup 15 Ml FEEDTUBE PRN PRN Hypoglycemia Sodium Bicarbonate 325 mg 10/10/20 22:18 Sodium Bicarbonate 325 Mg Tab FEEDTUBE PRN PRN For Clogged Feeding Tube Sodium Chloride 10 ml 10/10/20 22:00 11/21/20 09:01 Sodium Chloride 0.9% 10 Ml Flush Syringe IV Not Given BID PEPITO Nutrition/Malnutrition Assess - Dietary Evaluation Nutrition/Malnutrition Findings: Nutrition Notes Start: 10/11/20 08:38 Freq: Status: Active Protocol: Document 11/16/20 09:53 AT (Rec: 11/16/20 10:08 AT [email or web address]) Co-Sign 11/16/20 09:53 Nutrition Notes Initial or Follow up Reassessment Current Diagnosis Acute Kidney Injury,Decubitus( Pressure Ulcer),Sepsis, Hypertension,Heart Failure, Respiratory Failure Other Pertinent Diagnosis GIB, pneu, MRSA DC, pulmonary edema Current Diet Promote at 80 mL/hr Labs/Tests POC BG 138 No new labs Pertinent Medications Reviewed Height 6 ft Weight 135.1 kg [place] Body Weight (kg) 80.90 BMI 40.4 Weight Status Morbidly Obese Subjective/Other Information Follow up for TF restart/ tolerance. Per chart, pt is tolerating and at goal rate. Per RN, pt still has generallized edema which may be contributing to the weight fluctuation. Per RN, pt is producing urine. Will continue to monitor for weight gain or continued edema. Percent of energy/protein needs met: 98%/74% Burn Absent Trauma Absent Difficulty In Swallowing Skin Integrity/Comment DTI to heel Current % PO Negligible Minimum of two criteria No Fluid Accumulation Mild (non-severe) #3 Nutrition Diagnosis Increased nutrient needs ( specify in comment below) Diagnosis Progress(for reassessment Continues documentation) #1 Nutrition Diagnosis Inadequate oral intake Diagnosis Progress(for reassessment Continues documentation) Is patient on ventilator? Yes Is Patient Ambulatory and/or Out of Bed No REE-([place]-St. Jeor-confined to bed) 2684.268 Kcal/Kg value to use for calculation 15 Approximate Energy Requirements Using 2026 kcal/Kg Calculation Used for Recommendations Kcal/kg Additional Notes PRO needs: >162g (>2 g/kg IBW) Fluid needs: 1 mL/kcal Nutrition Intervention Change Diet Order: Continue TF Nutrition Support: Promote at 80 ml/hr flush of 50 ml q4h. Kcal 1,920 Protein (gm) 120 Fluid (mL) 1,611 Goal #1 TF tolerance Goal #2 Meet at least 70% of protein and 100% of kcal needs via TF Anticipated Discharge Needs: TF Follow-Up By: 11/21/20 Additional Comments F/U for stable TF and weight stabilization
[2020-11-21] MEDS: hydrALAZINE 20 MG/1 ML INJ IV PRN (10:03)
[2020-11-21] MEDS: VANCOMYCIN 2,000 MG in SODIUM CHLORIDE 0.9% 500 ML 500 ML IV SCH (13:08)
--- NOTE | 2020-11-21 14:17 | Progress Note ---
Assessment and Plan 55-year-old -Stateless male with history of hypertension and asthma and obesity who became unresponsive after COVID-19 vaccination. Patient was brought to the ED and coded twice. Patient resuscitated and placed on mechanical ventilation. Patient subsequently had tracheostomy. Patient weaned from ventilator. Patient presently on T-tube. Patient not responding to verbal stimuli. Presently resting on T-tube. FiO2 28%. O2 saturation running 98%. No acute respiratory distress. Patient afebrile. No leukocytosis. Chest X-ray done 11/12/20. Reported mild, diffuse disease, suggesting pulmonary edema. Chest X-ray done 11/19/20. Reported No adverse change from the prior exam. Patient presently on s/c heparin, prevacid, and albuterol, vancomycin. Patient's is at bedside. Talked to her and explained the patient's respiratory status. Patient was seen in [facility]. I spent critical care time of 35 minutes examining the patient, reviewing the chart, reviewing the labs and chest x-ray, talking to respiratory therapy and nursing staff, and work-up plan of treatment. - Patient Problems (1) Acute respiratory failure with hypoxia and hypercarbia Current Visit: Yes Status: Acute Plan to address problem: Patient presently on T-tube. FiO2 28%. O2 saturation 98%. Continue albuterol aerosol treatments. Respiratory suctioning as needed. Continue s/c heparin. Continue prevacid. (2) Bilateral pneumonia Current Visit: Yes Status: Acute Plan to address problem: Repeat Chest x-ray on 11/19/20 reported No adverse change from the prior exam. Patient afebrile, no leukocytosis. Patient on vancomycin. (3) Cardiopulmonary arrest with successful resuscitation Current Visit: Yes Status: Acute Plan to address problem: Patient successfully resuscitated. Presently resting on T-tube. (4) MOE (acute kidney injury) Current Visit: Yes Status: Acute Plan to address problem: Management per Neprology. (5) Accelerated hypertension Current Visit: Yes Status: Acute Plan to address problem: Management per primary care. (6) Acute heart failure with preserved ejection fraction (HFpEF) Current Visit: Yes Status: Acute Plan to address problem: Management per cardiology. (7) Atrial fibrillation and flutter Current Visit: Yes Status: Acute Plan to address problem: Management per cardiology. (8) GI bleed Current Visit: Yes Status: Acute Plan to address problem: Management per GI. (9) Hypotension Current Visit: Yes Status: Acute Plan to address problem: Improved. Today's BP is 140/93 (10) NSTEMI (non-ST elevated myocardial infarction) Current Visit: Yes Status: Acute Plan to address problem: Management per cardiology. (11) Seizure Current Visit: Yes Status: Acute Plan to address problem: Management per primary care and Neurology. Subjective Date of service: 11/21/20 Principal diagnosis: Cardiac arrest; Septic Shock; Ac. hypoxemic & hypercapnic resp failure; MOE Interval history: 55-year-old -Stateless male with history of hypertension and asthma and obesity who became unresponsive after COVID-19 vaccination. Patient was brought to the ED and coded twice. Patient resuscitated and placed on mechanical ventilation. Patient subsequently had tracheostomy. Patient weaned from ventilator. Patient presently on T-tube. Patient not responding to verbal stimuli. Presently resting on T-tube. FiO2 28%. O2 saturation running 98%. No acute respiratory distress. Patient afebrile. No leukocytosis. Chest X-ray done 11/12/20. Reported mild, diffuse disease, suggesting pulmonary edema. Chest X-ray done 11/19/20. Reported No adverse change from the prior exam. Patient presently on s/c heparin, prevacid, and albuterol, vancomycin. Patient's is at bedside. Talked to her and explained the patient's respiratory status. Objective Vital Signs - 12hr 11/21/20 11/21/20 11/21/20 02:30 03:00 03:59 Temperature Pulse Rate 74 72 Pulse Rate [ From Monitor] Respiratory 24 Rate Respiratory Rate [ Generalized] Blood Pressure 128/57 128/57 O2 Sat by Pulse 99 Oximetry O2 Sat by Pulse 100 Oximetry [ Assessment] 11/21/20 11/21/20 11/21/20 04:00 04:02 04:45 Temperature 100.4 F H Pulse Rate 73 74 Pulse Rate [ From Monitor] Respiratory 24 Rate Respiratory Rate [ Generalized] Blood Pressure 135/61 O2 Sat by Pulse 99 Oximetry O2 Sat by Pulse Oximetry [ Assessment] 11/21/20 11/21/20 11/21/20 05:01 06:00 06:01 Temperature Pulse Rate 74 79 Pulse Rate [ From Monitor] Respiratory 25 H 27 H 26 H Rate Respiratory Rate [ Generalized] Blood Pressure 155/84 144/69 O2 Sat by Pulse 100 100 Oximetry O2 Sat by Pulse Oximetry [ Assessment] 11/21/20 11/21/20 11/21/20 07:00 07:19 08:00 Temperature 99.4 F Pulse Rate 78 82 72 Pulse Rate [ 74 From Monitor] Respiratory 26 H 15 Rate Respiratory Rate [ Generalized] Blood Pressure 136/58 136/58 153/82 O2 Sat by Pulse 98 100 Oximetry O2 Sat by Pulse Oximetry [ Assessment] 11/21/20 11/21/20 11/21/20 09:01 09:04 09:05 Temperature Pulse Rate 75 Pulse Rate [ From Monitor] Respiratory 13 Rate Respiratory Rate [ Generalized] Blood Pressure 166/73 O2 Sat by Pulse 98 99 Oximetry O2 Sat by Pulse 99 Oximetry [ Assessment] 11/21/20 11/21/20 11/21/20 09:53 09:55 10:00 Temperature Pulse Rate 73 74 Pulse Rate [ From Monitor] Respiratory 26 H Rate Respiratory 21 Rate [ Generalized] Blood Pressure 184/79 O2 Sat by Pulse 97 Oximetry O2 Sat by Pulse Oximetry [ Assessment] 11/21/20 11/21/20 11/21/20 10:03 10:13 11:00 Temperature Pulse Rate 72 76 72 Pulse Rate [ From Monitor] Respiratory 25 H Rate Respiratory Rate [ Generalized] Blood Pressure 184/79 184/79 173/72 O2 Sat by Pulse 95 Oximetry O2 Sat by Pulse Oximetry [ Assessment] 11/21/20 11/21/20 11/21/20 11:43 12:00 13:00 Temperature 99.1 F Pulse Rate 74 73 Pulse Rate [ 73 From Monitor] Respiratory 25 H 25 H 25 H Rate Respiratory Rate [ Generalized] Blood Pressure 159/61 180/65 O2 Sat by Pulse 97 97 Oximetry O2 Sat by Pulse Oximetry [ Assessment] 11/21/20 13:07 Temperature Pulse Rate 74 Pulse Rate [ From Monitor] Respiratory Rate Respiratory Rate [ Generalized] Blood Pressure 180/65 O2 Sat by Pulse Oximetry O2 Sat by Pulse Oximetry [ Assessment] Constitutional: no acute distress, asleep Eyes: non-icteric ENT: oropharynx moist, oropharyngeal exudate pre (improved), other (midline tracheostomy) Neck: supple, no lymphadenopathy, no JVD Effort: mildly labored Ascultation: Bilateral: diminished breath sounds, rhonchi (scant) Percussion: Bilateral: not dull Cardiovascular: regular rate and rhythm, other (S1,S2) Gastrointestinal: normoactive bowel sounds, soft, non-tender, non-distended (protuberant) Integumentary: normal Extremities: no cyanosis, no edema, pulses normal, no ischemia or petechiae Neurologic: pupils equal and round, unable to assess, other (encephalopathic) Psychiatric: other (unable to assess re: AMS) CBC and BMP: 11/21/20 04:00 11/21/20 04:00 ABG, PT/INR, D-dimer: ABG ABG pH 7.374 (7.320-7.450) 11/13/20 16:43 POC ABG pCO2 68.4 mmHg (32.0-48.0) H 11/13/20 16:43 ABG pCO2 55.5 mm Hg 10/16/20 05:10 POC ABG pO2 101.9 mmHg (83-108) 11/13/20 16:43 ABG pO2 104.5 mm Hg (80.0-90.0) H 10/16/20 05:10 POC ABG HCO3 39.0 11/13/20 16:43 ABG O2 Saturation 97.8 (0-100) 11/13/20 16:43 PT/INR, D-dimer PT 13.5 Sec. (12.2-14.9) 10/28/20 07:00 INR 1.05 (0.87-1.13) 10/28/20 07:00 D-Dimer 679.5 ng/mlDDU (0-234) H 10/10/20 10:48 Abnormal lab findings: Abnormal Labs 10/10/20 10/10/20 10/10/20 10:46 10:46 10:46 WBC RBC Hgb Hct RDW Lymph % (Auto) Lynn % (Auto) Eos % (Auto) Lymph # (Auto) Lynn # (Auto) Eos # (Auto) Seg Neutrophils % Lymphocytes % (Manual) Monocytes % (Manual) Seg Neutrophils # Seg Neutrophils # Man Lymphocytes # (Manual) Monocytes # (Manual) D-Dimer Heparin Anti-Xa Level ABG pH POC ABG pCO2 POC ABG pO2 ABG pO2 ABG HCO3 ABG O2 Saturation ABG Base Excess ABG Hemoglobin ABG Oxyhemoglobin ABG Sodium ABG Potassium ABG Chloride ABG Glucose VBG pH Oxyhemoglobin Carboxyhemoglobin Sodium Potassium Chloride Carbon Dioxide BUN Creatinine Glucose POC Glucose Lactic Acid 13.60 H* Calcium Phosphorus Magnesium Total Bilirubin AST ALT Ammonia 214.0 H Lactate Dehydrogenase Total Creatine Kinase CK-MB (CK-2) Troponin T C-Reactive Protein NT-Pro-B Natriuret Pep Total Protein Albumin Triglycerides TSH 6.260 H Arterial Blood Glucose Arterial Blood Ionized Calcium Urine pH Urine WBC (Auto) Urine Creatinine 10/10/20 10/10/20 10/10/20 10:46 10:48 10:48 WBC RBC 5.28 H Hgb 15.5 H Hct 48.8 H RDW Lymph % (Auto) Lynn % (Auto) Eos % (Auto) Lymph # (Auto) Lynn # (Auto) Eos # (Auto) Seg Neutrophils % Lymphocytes % (Manual) 42.0 H Monocytes % (Manual) Seg Neutrophils # Seg Neutrophils # Man Lymphocytes # (Manual) Monocytes # (Manual) D-Dimer Heparin Anti-Xa Level ABG pH POC ABG pCO2 POC ABG pO2 ABG pO2 ABG HCO3 ABG O2 Saturation ABG Base Excess ABG Hemoglobin ABG Oxyhemoglobin ABG Sodium ABG Potassium ABG Chloride ABG Glucose VBG pH Oxyhemoglobin Carboxyhemoglobin Sodium Potassium 3.3 L Chloride 91.2 L Carbon Dioxide BUN Creatinine 1.8 H Glucose 231 H POC Glucose Lactic Acid Calcium Phosphorus Magnesium Total Bilirubin AST 60 H ALT 57 H Ammonia Lactate Dehydrogenase Total Creatine Kinase CK-MB (CK-2) Troponin T C-Reactive Protein NT-Pro-B Natriuret Pep 1187 H Total Protein 9.0 H Albumin Triglycerides TSH Arterial Blood Glucose Arterial Blood Ionized Calcium Urine pH Urine WBC (Auto) Urine Creatinine 10/10/20 10/10/20 10/10/20 10:48 10:48 10:48 WBC RBC Hgb Hct RDW Lymph % (Auto) Lynn % (Auto) Eos % (Auto) Lymph # (Auto) Lynn # (Auto) Eos # (Auto) Seg Neutrophils % Lymphocytes % (Manual) Monocytes % (Manual) Seg Neutrophils # Seg Neutrophils # Man Lymphocytes # (Manual) Monocytes # (Manual) D-Dimer 679.5 H Heparin Anti-Xa Level ABG pH POC ABG pCO2 POC ABG pO2 ABG pO2 ABG HCO3 ABG O2 Saturation ABG Base Excess ABG Hemoglobin ABG Oxyhemoglobin ABG Sodium ABG Potassium ABG Chloride ABG Glucose VBG pH 6.870 L* Oxyhemoglobin Carboxyhemoglobin Sodium Potassium Chloride Carbon Dioxide BUN Creatinine Glucose POC Glucose Lactic Acid Calcium Phosphorus Magnesium Total Bilirubin AST ALT Ammonia Lactate Dehydrogenase 386 H Total Creatine Kinase CK-MB (CK-2) Troponin T C-Reactive Protein NT-Pro-B Natriuret Pep Total Protein Albumin Triglycerides TSH Arterial Blood Glucose Arterial Blood Ionized Calcium Urine pH Urine WBC (Auto) Urine Creatinine 10/10/20 10/10/20 10/10/20 14:10 14:20 15:50 WBC RBC Hgb Hct RDW Lymph % (Auto) Lynn % (Auto) Eos % (Auto) Lymph # (Auto) Lynn # (Auto) Eos # (Auto) Seg Neutrophils % Lymphocytes % (Manual) Monocytes % (Manual) Seg Neutrophils # Seg Neutrophils # Man Lymphocytes # (Manual) Monocytes # (Manual) D-Dimer Heparin Anti-Xa Level ABG pH 7.175 L 7.247 L POC ABG pCO2 85.0 H POC ABG pO2 43.7 L ABG pO2 60.3 L ABG HCO3 32.0 H ABG O2 Saturation 86.1 L ABG Base Excess ABG Hemoglobin ABG Oxyhemoglobin 67.7 L ABG Sodium ABG Potassium ABG Chloride ABG Glucose 247 H VBG pH Oxyhemoglobin 84.4 L Carboxyhemoglobin Sodium Potassium Chloride Carbon Dioxide BUN Creatinine Glucose POC Glucose Lactic Acid 4.00 H* Calcium Phosphorus Magnesium Total Bilirubin AST ALT Ammonia Lactate Dehydrogenase Total Creatine Kinase CK-MB (CK-2) Troponin T C-Reactive Protein NT-Pro-B Natriuret Pep Total Protein Albumin Triglycerides TSH Arterial Blood Glucose 247 H Arterial Blood Ionized Calcium 4.4 L Urine pH Urine WBC (Auto) Urine Creatinine 10/10/20 10/10/20 10/10/20 15:50 16:22 18:18 WBC RBC Hgb Hct RDW Lymph % (Auto) Lynn % (Auto) Eos % (Auto) Lymph # (Auto) Lynn # (Auto) Eos # (Auto) Seg Neutrophils % Lymphocytes % (Manual) Monocytes % (Manual) Seg Neutrophils # Seg Neutrophils # Man Lymphocytes # (Manual) Monocytes # (Manual) D-Dimer Heparin Anti-Xa Level ABG pH 7.171 L POC ABG pCO2 96.6 H POC ABG pO2 55.3 L ABG pO2 ABG HCO3 ABG O2 Saturation ABG Base Excess ABG Hemoglobin ABG Oxyhemoglobin 81.4 L ABG Sodium ABG Potassium ABG Chloride ABG Glucose 115 H VBG pH Oxyhemoglobin Carboxyhemoglobin Sodium Potassium Chloride Carbon Dioxide BUN Creatinine Glucose POC Glucose 132 H Lactic Acid Calcium Phosphorus Magnesium Total Bilirubin AST ALT Ammonia Lactate Dehydrogenase Total Creatine Kinase 1192 H CK-MB (CK-2) 21.7 H Troponin T 0.377 H* D C-Reactive Protein NT-Pro-B Natriuret Pep Total Protein Albumin Triglycerides TSH Arterial Blood Glucose 115 H Arterial Blood Ionized Calcium Urine pH Urine WBC (Auto) Urine Creatinine 10/10/20 10/10/20 10/10/20 18:18 18:18 22:49 WBC 23.0 H RBC 5.12 H Hgb Hct RDW Lymph % (Auto) Lynn % (Auto) Eos % (Auto) Lymph # (Auto) Lynn # (Auto) Eos # (Auto) Seg Neutrophils % Lymphocytes % (Manual) 4.0 L Monocytes % (Manual) 9.0 H Seg Neutrophils # Seg Neutrophils # Man 13.8 H Lymphocytes # (Manual) 0.9 L Monocytes # (Manual) 2.1 H D-Dimer Heparin Anti-Xa Level ABG pH POC ABG pCO2 POC ABG pO2 ABG pO2 ABG HCO3 ABG O2 Saturation ABG Base Excess ABG Hemoglobin ABG Oxyhemoglobin ABG Sodium ABG Potassium ABG Chloride ABG Glucose VBG pH Oxyhemoglobin Carboxyhemoglobin Sodium 146 H Potassium Chloride Carbon Dioxide 34 H D BUN 27 H Creatinine 2.7 H Glucose 102 H POC Glucose Lactic Acid Calcium Phosphorus Magnesium Total Bilirubin AST 90 H ALT 66 H Ammonia Lactate Dehydrogenase Total Creatine Kinase CK-MB (CK-2) Troponin T 0.273 H* D C-Reactive Protein NT-Pro-B Natriuret Pep Total Protein Albumin Triglycerides TSH Arterial Blood Glucose Arterial Blood Ionized Calcium Urine pH Urine WBC (Auto) Urine Creatinine 10/11/20 10/11/20 10/11/20 02:00 02:00 02:00 WBC 17.3 H RBC Hgb Hct RDW Lymph % (Auto) 3.9 L Lynn % (Auto) Eos % (Auto) Lymph # (Auto) 0.7 L Lynn # (Auto) Eos # (Auto) Seg Neutrophils % 93.0 H Lymphocytes % (Manual) Monocytes % (Manual) Seg Neutrophils # 16.1 H Seg Neutrophils # Man Lymphocytes # (Manual) Monocytes # (Manual) D-Dimer Heparin Anti-Xa Level ABG pH POC ABG pCO2 POC ABG pO2 ABG pO2 ABG HCO3 ABG O2 Saturation ABG Base Excess ABG Hemoglobin ABG Oxyhemoglobin ABG Sodium ABG Potassium ABG Chloride ABG Glucose VBG pH Oxyhemoglobin Carboxyhemoglobin Sodium 149 H Potassium 3.3 L Chloride 95.3 L Carbon Dioxide 37 H BUN 29 H Creatinine 2.6 H Glucose POC Glucose Lactic Acid Calcium Phosphorus Magnesium Total Bilirubin AST 80 H ALT 59 H Ammonia Lactate Dehydrogenase Total Creatine Kinase CK-MB (CK-2) Troponin T 0.201 H* D C-Reactive Protein NT-Pro-B Natriuret Pep Total Protein Albumin 3.6 L Triglycerides TSH Arterial Blood Glucose Arterial Blood Ionized Calcium Urine pH Urine WBC (Auto) Urine Creatinine 10/11/20 10/11/20 10/11/20 03:51 08:35 11:15 WBC RBC Hgb Hct RDW Lymph % (Auto) Lynn % (Auto) Eos % (Auto) Lymph # (Auto) Lynn # (Auto) Eos # (Auto) Seg Neutrophils % Lymphocytes % (Manual) Monocytes % (Manual) Seg Neutrophils # Seg Neutrophils # Man Lymphocytes # (Manual) Monocytes # (Manual) D-Dimer Heparin Anti-Xa Level 0.22 L ABG pH 7.491 H POC ABG pCO2 57.6 H POC ABG pO2 ABG pO2 ABG HCO3 ABG O2 Saturation ABG Base Excess ABG Hemoglobin ABG Oxyhemoglobin ABG Sodium 150.0 H ABG Potassium 3.1 L ABG Chloride 96.0 L ABG Glucose 122 H VBG pH Oxyhemoglobin Carboxyhemoglobin Sodium Potassium Chloride Carbon Dioxide BUN Creatinine Glucose POC Glucose 151 H Lactic Acid Calcium Phosphorus Magnesium Total Bilirubin AST ALT Ammonia Lactate Dehydrogenase Total Creatine Kinase CK-MB (CK-2) Troponin T C-Reactive Protein NT-Pro-B Natriuret Pep Total Protein Albumin Triglycerides TSH Arterial Blood Glucose 122 H Arterial Blood Ionized Calcium 3.9 L Urine pH Urine WBC (Auto) Urine Creatinine 10/11/20 10/11/20 10/11/20 13:30 13:30 13:30 WBC 15.0 H RBC Hgb Hct RDW Lymph % (Auto) Lynn % (Auto) Eos % (Auto) Lymph # (Auto) Lynn # (Auto) Eos # (Auto) Seg Neutrophils % Lymphocytes % (Manual) Monocytes % (Manual) Seg Neutrophils # Seg Neutrophils # Man Lymphocytes # (Manual) Monocytes # (Manual) D-Dimer Heparin Anti-Xa Level ABG pH POC ABG pCO2 POC ABG pO2 ABG pO2 ABG HCO3 ABG O2 Saturation ABG Base Excess ABG Hemoglobin ABG Oxyhemoglobin ABG Sodium ABG Potassium ABG Chloride ABG Glucose VBG pH Oxyhemoglobin Carboxyhemoglobin Sodium Potassium Chloride Carbon Dioxide BUN Creatinine Glucose POC Glucose Lactic Acid Calcium Phosphorus Magnesium Total Bilirubin AST ALT Ammonia Lactate Dehydrogenase Total Creatine Kinase CK-MB (CK-2) Troponin T C-Reactive Protein NT-Pro-B Natriuret Pep Total Protein Albumin Triglycerides TSH Arterial Blood Glucose Arterial Blood Ionized Calcium Urine pH 9.0 H Urine WBC (Auto) 18.0 H Urine Creatinine 80.5 H 10/11/20 10/11/20 10/12/20 17:17 23:14 03:53 WBC RBC Hgb Hct RDW Lymph % (Auto) Lynn % (Auto) Eos % (Auto) Lymph # (Auto) Lynn # (Auto) Eos # (Auto) Seg Neutrophils % Lymphocytes % (Manual) Monocytes % (Manual) Seg Neutrophils # Seg Neutrophils # Man Lymphocytes # (Manual) Monocytes # (Manual) D-Dimer Heparin Anti-Xa Level ABG pH 7.545 H POC ABG pCO2 54.6 H POC ABG pO2 231.9 H ABG pO2 ABG HCO3 ABG O2 Saturation ABG Base Excess ABG Hemoglobin ABG Oxyhemoglobin 98.5 H ABG Sodium 150.5 H ABG Potassium 3.2 L ABG Chloride 96.0 L ABG Glucose 148 H VBG pH Oxyhemoglobin Carboxyhemoglobin Sodium Potassium Chloride Carbon Dioxide BUN Creatinine Glucose POC Glucose 121 H 135 H Lactic Acid Calcium Phosphorus Magnesium Total Bilirubin AST ALT Ammonia Lactate Dehydrogenase Total Creatine Kinase CK-MB (CK-2) Troponin T C-Reactive Protein NT-Pro-B Natriuret Pep Total Protein Albumin Triglycerides TSH Arterial Blood Glucose 148 H Arterial Blood Ionized Calcium 3.8 L Urine pH Urine WBC (Auto) Urine Creatinine 10/12/20 10/12/20 10/12/20 04:00 05:10 05:12 WBC 14.3 H RBC Hgb 11.6 L Hct 35.2 L RDW Lymph % (Auto) Lynn % (Auto) Eos % (Auto) Lymph # (Auto) Lynn # (Auto) Eos # (Auto) Seg Neutrophils % Lymphocytes % (Manual) Monocytes % (Manual) Seg Neutrophils # Seg Neutrophils # Man Lymphocytes # (Manual) Monocytes # (Manual) D-Dimer Heparin Anti-Xa Level ABG pH POC ABG pCO2 POC ABG pO2 ABG pO2 ABG HCO3 ABG O2 Saturation ABG Base Excess ABG Hemoglobin ABG Oxyhemoglobin ABG Sodium ABG Potassium ABG Chloride ABG Glucose VBG pH Oxyhemoglobin Carboxyhemoglobin Sodium 155 H Potassium 3.3 L Chloride 97.9 L Carbon Dioxide 47 H* D BUN 50 H Creatinine 3.4 H Glucose 146 H POC Glucose 137 H Lactic Acid Calcium 8.0 L Phosphorus Magnesium Total Bilirubin AST ALT Ammonia Lactate Dehydrogenase Total Creatine Kinase CK-MB (CK-2) Troponin T 0.125 H* D C-Reactive Protein NT-Pro-B Natriuret Pep Total Protein Albumin Triglycerides TSH Arterial Blood Glucose Arterial Blood Ionized Calcium Urine pH Urine WBC (Auto) Urine Creatinine 10/12/20 10/12/20 10/12/20 11:39 16:01 19:49 WBC RBC Hgb Hct RDW Lymph % (Auto) Lynn % (Auto) Eos % (Auto) Lymph # (Auto) Lynn # (Auto) Eos # (Auto) Seg Neutrophils % Lymphocytes % (Manual) Monocytes % (Manual) Seg Neutrophils # Seg Neutrophils # Man Lymphocytes # (Manual) Monocytes # (Manual) D-Dimer Heparin Anti-Xa Level ABG pH POC ABG pCO2 POC ABG pO2 ABG pO2 ABG HCO3 ABG O2 Saturation ABG Base Excess ABG Hemoglobin ABG Oxyhemoglobin ABG Sodium ABG Potassium ABG Chloride ABG Glucose VBG pH Oxyhemoglobin Carboxyhemoglobin Sodium 157 H Potassium 3.3 L Chloride Carbon Dioxide 47 H* BUN 52 H Creatinine 3.0 H Glucose 137 H POC Glucose 138 H 119 H Lactic Acid Calcium 8.0 L Phosphorus Magnesium Total Bilirubin AST ALT Ammonia Lactate Dehydrogenase Total Creatine Kinase CK-MB (CK-2) Troponin T C-Reactive Protein NT-Pro-B Natriuret Pep Total Protein Albumin Triglycerides TSH Arterial Blood Glucose Arterial Blood Ionized Calcium Urine pH Urine WBC (Auto) Urine Creatinine 10/12/20 10/13/20 10/13/20 23:37 02:28 04:52 WBC RBC Hgb Hct RDW Lymph % (Auto) Lynn % (Auto) Eos % (Auto) Lymph # (Auto) Lynn # (Auto) Eos # (Auto) Seg Neutrophils % Lymphocytes % (Manual) Monocytes % (Manual) Seg Neutrophils # Seg Neutrophils # Man Lymphocytes # (Manual) Monocytes # (Manual) D-Dimer Heparin Anti-Xa Level ABG pH 7.485 H POC ABG pCO2 57.1 H POC ABG pO2 ABG pO2 ABG HCO3 ABG O2 Saturation ABG Base Excess ABG Hemoglobin ABG Oxyhemoglobin ABG Sodium 152.4 H ABG Potassium ABG Chloride ABG Glucose 129 H VBG pH Oxyhemoglobin Carboxyhemoglobin Sodium 155 H Potassium Chloride Carbon Dioxide 45 H* BUN 52 H Creatinine 2.7 H Glucose 121 H POC Glucose 131 H Lactic Acid Calcium Phosphorus Magnesium 2.40 H Total Bilirubin AST ALT Ammonia Lactate Dehydrogenase Total Creatine Kinase CK-MB (CK-2) Troponin T C-Reactive Protein NT-Pro-B Natriuret Pep Total Protein Albumin Triglycerides 278 H TSH Arterial Blood Glucose 129 H Arterial Blood Ionized Calcium 4.1 L Urine pH Urine WBC (Auto) Urine Creatinine 10/13/20 10/13/20 10/13/20 04:52 05:13 11:37 WBC 14.7 H RBC Hgb 11.7 L Hct RDW 15.8 H Lymph % (Auto) Lynn % (Auto) Eos % (Auto) Lymph # (Auto) Lynn # (Auto) Eos # (Auto) Seg Neutrophils % Lymphocytes % (Manual) Monocytes % (Manual) Seg Neutrophils # Seg Neutrophils # Man Lymphocytes # (Manual) Monocytes # (Manual) D-Dimer Heparin Anti-Xa Level ABG pH POC ABG pCO2 POC ABG pO2 ABG pO2 ABG HCO3 ABG O2 Saturation ABG Base Excess ABG Hemoglobin ABG Oxyhemoglobin ABG Sodium ABG Potassium ABG Chloride ABG Glucose VBG pH Oxyhemoglobin Carboxyhemoglobin Sodium Potassium Chloride Carbon Dioxide BUN Creatinine Glucose POC Glucose 116 H 116 H Lactic Acid Calcium Phosphorus Magnesium Total Bilirubin AST ALT Ammonia Lactate Dehydrogenase Total Creatine Kinase CK-MB (CK-2) Troponin T C-Reactive Protein NT-Pro-B Natriuret Pep Total Protein Albumin Triglycerides TSH Arterial Blood Glucose Arterial Blood Ionized Calcium Urine pH Urine WBC (Auto) Urine Creatinine 10/13/20 10/14/20 10/14/20 17:50 03:45 04:46 WBC 11.1 H RBC Hgb Hct RDW 15.3 H Lymph % (Auto) Lynn % (Auto) Eos % (Auto) Lymph # (Auto) Lynn # (Auto) Eos # (Auto) Seg Neutrophils % Lymphocytes % (Manual) Monocytes % (Manual) Seg Neutrophils # Seg Neutrophils # Man Lymphocytes # (Manual) Monocytes # (Manual) D-Dimer Heparin Anti-Xa Level ABG pH POC ABG pCO2 59.6 H POC ABG pO2 ABG pO2 ABG HCO3 ABG O2 Saturation ABG Base Excess ABG Hemoglobin ABG Oxyhemoglobin ABG Sodium 151.4 H ABG Potassium 3.3 L ABG Chloride ABG Glucose 138 H VBG pH Oxyhemoglobin Carboxyhemoglobin 1.6 H Sodium Potassium Chloride Carbon Dioxide BUN Creatinine Glucose POC Glucose 140 H Lactic Acid Calcium Phosphorus Magnesium Total Bilirubin AST ALT Ammonia Lactate Dehydrogenase Total Creatine Kinase CK-MB (CK-2) Troponin T C-Reactive Protein NT-Pro-B Natriuret Pep Total Protein Albumin Triglycerides TSH Arterial Blood Glucose 138 H Arterial Blood Ionized Calcium 4.5 L Urine pH Urine WBC (Auto) Urine Creatinine 10/14/20 10/14/20 10/14/20 04:46 05:10 11:11 WBC RBC Hgb Hct RDW Lymph % (Auto) Lynn % (Auto) Eos % (Auto) Lymph # (Auto) Lynn # (Auto) Eos # (Auto) Seg Neutrophils % Lymphocytes % (Manual) Monocytes % (Manual) Seg Neutrophils # Seg Neutrophils # Man Lymphocytes # (Manual) Monocytes # (Manual) D-Dimer Heparin Anti-Xa Level ABG pH POC ABG pCO2 POC ABG pO2 ABG pO2 ABG HCO3 ABG O2 Saturation ABG Base Excess ABG Hemoglobin ABG Oxyhemoglobin ABG Sodium ABG Potassium ABG Chloride ABG Glucose VBG pH Oxyhemoglobin Carboxyhemoglobin Sodium 152 H Potassium 3.5 L Chloride Carbon Dioxide 38 H D BUN 46 H Creatinine 2.3 H Glucose 127 H POC Glucose 116 H 114 H Lactic Acid Calcium Phosphorus Magnesium Total Bilirubin AST ALT Ammonia Lactate Dehydrogenase Total Creatine Kinase CK-MB (CK-2) Troponin T C-Reactive Protein NT-Pro-B Natriuret Pep Total Protein Albumin Triglycerides TSH Arterial Blood Glucose Arterial Blood Ionized Calcium Urine pH Urine WBC (Auto) Urine Creatinine 10/14/20 10/14/20 10/15/20 18:53 23:23 04:12 WBC RBC Hgb Hct RDW Lymph % (Auto) Lynn % (Auto) Eos % (Auto) Lymph # (Auto) Lynn # (Auto) Eos # (Auto) Seg Neutrophils % Lymphocytes % (Manual) Monocytes % (Manual) Seg Neutrophils # Seg Neutrophils # Man Lymphocytes # (Manual) Monocytes # (Manual) D-Dimer Heparin Anti-Xa Level ABG pH POC ABG pCO2 POC ABG pO2 ABG pO2 ABG HCO3 ABG O2 Saturation ABG Base Excess ABG Hemoglobin ABG Oxyhemoglobin ABG Sodium ABG Potassium ABG Chloride ABG Glucose VBG pH Oxyhemoglobin Carboxyhemoglobin Sodium 149 H Potassium 3.2 L Chloride Carbon Dioxide 37 H BUN 40 H Creatinine 2.0 H Glucose 124 H POC Glucose 128 H 113 H Lactic Acid Calcium Phosphorus Magnesium Total Bilirubin AST ALT Ammonia Lactate Dehydrogenase Total Creatine Kinase CK-MB (CK-2) Troponin T C-Reactive Protein NT-Pro-B Natriuret Pep Total Protein Albumin Triglycerides TSH Arterial Blood Glucose Arterial Blood Ionized Calcium Urine pH Urine WBC (Auto) Urine Creatinine 10/15/20 10/15/20 10/15/20 04:22 11:39 17:36 WBC RBC Hgb Hct RDW Lymph % (Auto) Lynn % (Auto) Eos % (Auto) Lymph # (Auto) Lynn # (Auto) Eos # (Auto) Seg Neutrophils % Lymphocytes % (Manual) Monocytes % (Manual) Seg Neutrophils # Seg Neutrophils # Man Lymphocytes # (Manual) Monocytes # (Manual) D-Dimer Heparin Anti-Xa Level ABG pH POC ABG pCO2 POC ABG pO2 ABG pO2 115.0 H ABG HCO3 38.1 H ABG O2 Saturation ABG Base Excess 11.3 H ABG Hemoglobin 11.0 L ABG Oxyhemoglobin ABG Sodium ABG Potassium ABG Chloride ABG Glucose VBG pH Oxyhemoglobin Carboxyhemoglobin Sodium Potassium Chloride Carbon Dioxide BUN Creatinine Glucose POC Glucose 123 H 118 H Lactic Acid Calcium Phosphorus Magnesium Total Bilirubin AST ALT Ammonia Lactate Dehydrogenase Total Creatine Kinase CK-MB (CK-2) Troponin T C-Reactive Protein NT-Pro-B Natriuret Pep Total Protein Albumin Triglycerides TSH Arterial Blood Glucose Arterial Blood Ionized Calcium Urine pH Urine WBC (Auto) Urine Creatinine 10/15/20 10/16/20 10/16/20 23:18 03:13 05:10 WBC RBC Hgb Hct RDW Lymph % (Auto) Lynn % (Auto) Eos % (Auto) Lymph # (Auto) Lynn # (Auto) Eos # (Auto) Seg Neutrophils % Lymphocytes % (Manual) Monocytes % (Manual) Seg Neutrophils # Seg Neutrophils # Man Lymphocytes # (Manual) Monocytes # (Manual) D-Dimer Heparin Anti-Xa Level ABG pH POC ABG pCO2 POC ABG pO2 ABG pO2 104.5 H ABG HCO3 35.1 H ABG O2 Saturation ABG Base Excess 9.5 H ABG Hemoglobin 7.9 L ABG Oxyhemoglobin ABG Sodium ABG Potassium ABG Chloride ABG Glucose VBG pH Oxyhemoglobin Carboxyhemoglobin Sodium Potassium 3.3 L Chloride Carbon Dioxide 33 H BUN 37 H Creatinine 1.4 H Glucose 148 H POC Glucose 135 H Lactic Acid Calcium Phosphorus Magnesium 2.40 H Total Bilirubin AST ALT Ammonia Lactate Dehydrogenase Total Creatine Kinase CK-MB (CK-2) Troponin T C-Reactive Protein NT-Pro-B Natriuret Pep Total Protein Albumin Triglycerides TSH Arterial Blood Glucose Arterial Blood Ionized Calcium Urine pH Urine WBC (Auto) Urine Creatinine 10/16/20 10/16/20 10/16/20 06:36 11:08 17:07 WBC RBC Hgb Hct RDW Lymph % (Auto) Lynn % (Auto) Eos % (Auto) Lymph # (Auto) Lynn # (Auto) Eos # (Auto) Seg Neutrophils % Lymphocytes % (Manual) Monocytes % (Manual) Seg Neutrophils # Seg Neutrophils # Man Lymphocytes # (Manual) Monocytes # (Manual) D-Dimer Heparin Anti-Xa Level ABG pH POC ABG pCO2 POC ABG pO2 ABG pO2 ABG HCO3 ABG O2 Saturation ABG Base Excess ABG Hemoglobin ABG Oxyhemoglobin ABG Sodium ABG Potassium ABG Chloride ABG Glucose VBG pH Oxyhemoglobin Carboxyhemoglobin Sodium Potassium Chloride Carbon Dioxide BUN Creatinine Glucose POC Glucose 150 H 111 H 132 H Lactic Acid Calcium Phosphorus Magnesium Total Bilirubin AST ALT Ammonia Lactate Dehydrogenase Total Creatine Kinase CK-MB (CK-2) Troponin T C-Reactive Protein NT-Pro-B Natriuret Pep Total Protein Albumin Triglycerides TSH Arterial Blood Glucose Arterial Blood Ionized Calcium Urine pH Urine WBC (Auto) Urine Creatinine 10/16/20 10/17/20 10/17/20 23:38 03:32 03:32 WBC RBC Hgb Hct RDW Lymph % (Auto) Lynn % (Auto) Eos % (Auto) Lymph # (Auto) Lynn # (Auto) Eos # (Auto) Seg Neutrophils % Lymphocytes % (Manual) Monocytes % (Manual) Seg Neutrophils # Seg Neutrophils # Man Lymphocytes # (Manual) Monocytes # (Manual) D-Dimer Heparin Anti-Xa Level ABG pH POC ABG pCO2 POC ABG pO2 ABG pO2 ABG HCO3 ABG O2 Saturation ABG Base Excess ABG Hemoglobin ABG Oxyhemoglobin ABG Sodium ABG Potassium ABG Chloride ABG Glucose VBG pH Oxyhemoglobin Carboxyhemoglobin Sodium 146 H Potassium Chloride Carbon Dioxide 32 H BUN 57 H Creatinine 2.4 H D Glucose 124 H POC Glucose 117 H Lactic Acid Calcium Phosphorus 5.20 H D Magnesium Total Bilirubin AST ALT Ammonia Lactate Dehydrogenase Total Creatine Kinase CK-MB (CK-2) Troponin T C-Reactive Protein NT-Pro-B Natriuret Pep Total Protein Albumin Triglycerides TSH Arterial Blood Glucose Arterial Blood Ionized Calcium Urine pH Urine WBC (Auto) Urine Creatinine 10/17/20 10/17/20 10/18/20 05:10 17:33 00:13 WBC RBC Hgb Hct RDW Lymph % (Auto) Lynn % (Auto) Eos % (Auto) Lymph # (Auto) Lynn # (Auto) Eos # (Auto) Seg Neutrophils % Lymphocytes % (Manual) Monocytes % (Manual) Seg Neutrophils # Seg Neutrophils # Man Lymphocytes # (Manual) Monocytes # (Manual) D-Dimer Heparin Anti-Xa Level ABG pH POC ABG pCO2 POC ABG pO2 ABG pO2 ABG HCO3 ABG O2 Saturation ABG Base Excess ABG Hemoglobin ABG Oxyhemoglobin ABG Sodium ABG Potassium ABG Chloride ABG Glucose VBG pH Oxyhemoglobin Carboxyhemoglobin Sodium Potassium Chloride Carbon Dioxide BUN Creatinine Glucose POC Glucose 122 H 121 H 23 L Lactic Acid Calcium Phosphorus Magnesium Total Bilirubin AST ALT Ammonia Lactate Dehydrogenase Total Creatine Kinase CK-MB (CK-2) Troponin T C-Reactive Protein NT-Pro-B Natriuret Pep Total Protein Albumin Triglycerides TSH Arterial Blood Glucose Arterial Blood Ionized Calcium Urine pH Urine WBC (Auto) Urine Creatinine 10/18/20 10/18/20 10/18/20 00:16 03:27 03:27 WBC RBC Hgb 11.7 L Hct RDW Lymph % (Auto) Lynn % (Auto) Eos % (Auto) Lymph # (Auto) Lynn # (Auto) Eos # (Auto) Seg Neutrophils % Lymphocytes % (Manual) Monocytes % (Manual) Seg Neutrophils # Seg Neutrophils # Man Lymphocytes # (Manual) Monocytes # (Manual) D-Dimer Heparin Anti-Xa Level ABG pH POC ABG pCO2 POC ABG pO2 ABG pO2 ABG HCO3 ABG O2 Saturation ABG Base Excess ABG Hemoglobin ABG Oxyhemoglobin ABG Sodium ABG Potassium ABG Chloride ABG Glucose VBG pH Oxyhemoglobin Carboxyhemoglobin Sodium Potassium Chloride 97.6 L Carbon Dioxide BUN 90 H Creatinine 3.3 H Glucose 146 H POC Glucose 134 H Lactic Acid Calcium Phosphorus Magnesium Total Bilirubin 1.70 H AST ALT Ammonia Lactate Dehydrogenase Total Creatine Kinase CK-MB (CK-2) Troponin T C-Reactive Protein NT-Pro-B Natriuret Pep Total Protein Albumin 3.1 L Triglycerides TSH Arterial Blood Glucose Arterial Blood Ionized Calcium Urine pH Urine WBC (Auto) Urine Creatinine 10/18/20 10/18/20 10/18/20 05:09 11:19 17:15 WBC RBC Hgb Hct RDW Lymph % (Auto) Lynn % (Auto) Eos % (Auto) Lymph # (Auto) Lynn # (Auto) Eos # (Auto) Seg Neutrophils % Lymphocytes % (Manual) Monocytes % (Manual) Seg Neutrophils # Seg Neutrophils # Man Lymphocytes # (Manual) Monocytes # (Manual) D-Dimer Heparin Anti-Xa Level ABG pH POC ABG pCO2 POC ABG pO2 ABG pO2 ABG HCO3 ABG O2 Saturation ABG Base Excess ABG Hemoglobin ABG Oxyhemoglobin ABG Sodium ABG Potassium ABG Chloride ABG Glucose VBG pH Oxyhemoglobin Carboxyhemoglobin Sodium Potassium Chloride Carbon Dioxide BUN Creatinine Glucose POC Glucose 144 H 145 H 151 H Lactic Acid Calcium Phosphorus Magnesium Total Bilirubin AST ALT Ammonia Lactate Dehydrogenase Total Creatine Kinase CK-MB (CK-2) Troponin T C-Reactive Protein NT-Pro-B Natriuret Pep Total Protein Albumin Triglycerides TSH Arterial Blood Glucose Arterial Blood Ionized Calcium Urine pH Urine WBC (Auto) Urine Creatinine 10/18/20 10/18/20 10/19/20 23:16 Unknown 04:55 WBC RBC Hgb Hct RDW Lymph % (Auto) Lynn % (Auto) Eos % (Auto) Lymph # (Auto) Lynn # (Auto) Eos # (Auto) Seg Neutrophils % Lymphocytes % (Manual) Monocytes % (Manual) Seg Neutrophils # Seg Neutrophils # Man Lymphocytes # (Manual) Monocytes # (Manual) D-Dimer Heparin Anti-Xa Level ABG pH POC ABG pCO2 POC ABG pO2 ABG pO2 ABG HCO3 ABG O2 Saturation ABG Base Excess ABG Hemoglobin ABG Oxyhemoglobin ABG Sodium ABG Potassium ABG Chloride ABG Glucose VBG pH Oxyhemoglobin Carboxyhemoglobin Sodium Potassium Chloride Carbon Dioxide BUN 104 H Creatinine 3.1 H Glucose 139 H POC Glucose 123 H Lactic Acid Calcium Phosphorus Magnesium Total Bilirubin AST ALT Ammonia Lactate Dehydrogenase Total Creatine Kinase CK-MB (CK-2) Troponin T C-Reactive Protein NT-Pro-B Natriuret Pep Total Protein Albumin Triglycerides TSH Arterial Blood Glucose Arterial Blood Ionized Calcium Urine pH Urine WBC (Auto) 115.0 H Urine Creatinine 10/19/20 10/19/20 10/19/20 04:55 11:35 13:14 WBC 15.1 H RBC Hgb 11.1 L Hct 34.4 L RDW Lymph % (Auto) 4.2 L Lynn % (Auto) 11.9 H Eos % (Auto) Lymph # (Auto) 0.6 L Lynn # (Auto) 1.8 H Eos # (Auto) Seg Neutrophils % 82.0 H Lymphocytes % (Manual) Monocytes % (Manual) Seg Neutrophils # 12.4 H Seg Neutrophils # Man Lymphocytes # (Manual) Monocytes # (Manual) D-Dimer Heparin Anti-Xa Level ABG pH POC ABG pCO2 POC ABG pO2 ABG pO2 ABG HCO3 ABG O2 Saturation ABG Base Excess ABG Hemoglobin ABG Oxyhemoglobin ABG Sodium ABG Potassium ABG Chloride ABG Glucose VBG pH Oxyhemoglobin Carboxyhemoglobin Sodium Potassium Chloride Carbon Dioxide BUN Creatinine Glucose POC Glucose 136 H Lactic Acid Calcium Phosphorus Magnesium Total Bilirubin AST ALT Ammonia Lactate Dehydrogenase Total Creatine Kinase CK-MB (CK-2) Troponin T C-Reactive Protein NT-Pro-B Natriuret Pep Total Protein Albumin Triglycerides TSH Arterial Blood Glucose Arterial Blood Ionized Calcium Urine pH Urine WBC (Auto) Urine Creatinine 93.7 H 10/19/20 10/19/20 10/20/20 17:53 23:39 04:30 WBC RBC Hgb Hct RDW Lymph % (Auto) Lynn % (Auto) Eos % (Auto) Lymph # (Auto) Lynn # (Auto) Eos # (Auto) Seg Neutrophils % Lymphocytes % (Manual) Monocytes % (Manual) Seg Neutrophils # Seg Neutrophils # Man Lymphocytes # (Manual) Monocytes # (Manual) D-Dimer Heparin Anti-Xa Level ABG pH POC ABG pCO2 POC ABG pO2 ABG pO2 ABG HCO3 ABG O2 Saturation ABG Base Excess ABG Hemoglobin ABG Oxyhemoglobin ABG Sodium ABG Potassium ABG Chloride ABG Glucose VBG pH Oxyhemoglobin Carboxyhemoglobin Sodium Potassium Chloride Carbon Dioxide BUN 104 H Creatinine 2.8 H Glucose 151 H POC Glucose 137 H 133 H Lactic Acid Calcium Phosphorus Magnesium Total Bilirubin AST ALT Ammonia Lactate Dehydrogenase Total Creatine Kinase CK-MB (CK-2) Troponin T C-Reactive Protein NT-Pro-B Natriuret Pep Total Protein Albumin Triglycerides TSH Arterial Blood Glucose Arterial Blood Ionized Calcium Urine pH Urine WBC (Auto) Urine Creatinine 10/20/20 10/20/20 10/20/20 04:30 05:38 11:34 WBC 17.9 H RBC Hgb 11.7 L Hct RDW Lymph % (Auto) Lynn % (Auto) Eos % (Auto) Lymph # (Auto) Lynn # (Auto) Eos # (Auto) Seg Neutrophils % Lymphocytes % (Manual) Monocytes % (Manual) Seg Neutrophils # Seg Neutrophils # Man Lymphocytes # (Manual) Monocytes # (Manual) D-Dimer Heparin Anti-Xa Level ABG pH POC ABG pCO2 POC ABG pO2 ABG pO2 ABG HCO3 ABG O2 Saturation ABG Base Excess ABG Hemoglobin ABG Oxyhemoglobin ABG Sodium ABG Potassium ABG Chloride ABG Glucose VBG pH Oxyhemoglobin Carboxyhemoglobin Sodium Potassium Chloride Carbon Dioxide BUN Creatinine Glucose POC Glucose 164 H 148 H Lactic Acid Calcium Phosphorus Magnesium Total Bilirubin AST ALT Ammonia Lactate Dehydrogenase Total Creatine Kinase CK-MB (CK-2) Troponin T C-Reactive Protein NT-Pro-B Natriuret Pep Total Protein Albumin Triglycerides TSH Arterial Blood Glucose Arterial Blood Ionized Calcium Urine pH Urine WBC (Auto) Urine Creatinine 10/20/20 10/20/20 10/20/20 17:40 20:20 23:29 WBC RBC Hgb Hct RDW Lymph % (Auto) Lynn % (Auto) Eos % (Auto) Lymph # (Auto) Lynn # (Auto) Eos # (Auto) Seg Neutrophils % Lymphocytes % (Manual) Monocytes % (Manual) Seg Neutrophils # Seg Neutrophils # Man Lymphocytes # (Manual) Monocytes # (Manual) D-Dimer Heparin Anti-Xa Level ABG pH 7.292 L POC ABG pCO2 68.5 H POC ABG pO2 ABG pO2 ABG HCO3 ABG O2 Saturation ABG Base Excess ABG Hemoglobin 11.6 L ABG Oxyhemoglobin ABG Sodium ABG Potassium ABG Chloride ABG Glucose 145 H VBG pH Oxyhemoglobin Carboxyhemoglobin Sodium Potassium Chloride Carbon Dioxide BUN Creatinine Glucose POC Glucose 130 H 136 H Lactic Acid Calcium Phosphorus Magnesium Total Bilirubin AST ALT Ammonia Lactate Dehydrogenase Total Creatine Kinase CK-MB (CK-2) Troponin T C-Reactive Protein NT-Pro-B Natriuret Pep Total Protein Albumin Triglycerides TSH Arterial Blood Glucose 145 H Arterial Blood Ionized Calcium Urine pH Urine WBC (Auto) Urine Creatinine 10/21/20 10/21/20 10/21/20 04:20 06:26 06:30 WBC RBC Hgb Hct RDW Lymph % (Auto) Lynn % (Auto) Eos % (Auto) Lymph # (Auto) Lynn # (Auto) Eos # (Auto) Seg Neutrophils % Lymphocytes % (Manual) Monocytes % (Manual) Seg Neutrophils # Seg Neutrophils # Man Lymphocytes # (Manual) Monocytes # (Manual) D-Dimer Heparin Anti-Xa Level ABG pH 7.262 L POC ABG pCO2 72.4 H POC ABG pO2 81.6 L ABG pO2 ABG HCO3 ABG O2 Saturation ABG Base Excess ABG Hemoglobin 11.6 L ABG Oxyhemoglobin ABG Sodium ABG Potassium ABG Chloride ABG Glucose 140 H VBG pH Oxyhemoglobin Carboxyhemoglobin Sodium Potassium Chloride Carbon Dioxide 33 H BUN 104 H Creatinine 2.9 H Glucose 153 H POC Glucose 128 H Lactic Acid Calcium Phosphorus Magnesium Total Bilirubin AST ALT Ammonia Lactate Dehydrogenase Total Creatine Kinase CK-MB (CK-2) Troponin T C-Reactive Protein NT-Pro-B Natriuret Pep Total Protein Albumin Triglycerides TSH Arterial Blood Glucose 140 H Arterial Blood Ionized Calcium Urine pH Urine WBC (Auto) Urine Creatinine 10/21/20 10/21/20 10/21/20 06:30 11:24 17:21 WBC 13.3 H RBC Hgb 10.7 L Hct 32.7 L RDW Lymph % (Auto) Lynn % (Auto) Eos % (Auto) Lymph # (Auto) Lynn # (Auto) Eos # (Auto) Seg Neutrophils % Lymphocytes % (Manual) Monocytes % (Manual) Seg Neutrophils # Seg Neutrophils # Man Lymphocytes # (Manual) Monocytes # (Manual) D-Dimer Heparin Anti-Xa Level ABG pH POC ABG pCO2 POC ABG pO2 ABG pO2 ABG HCO3 ABG O2 Saturation ABG Base Excess ABG Hemoglobin ABG Oxyhemoglobin ABG Sodium ABG Potassium ABG Chloride ABG Glucose VBG pH Oxyhemoglobin Carboxyhemoglobin Sodium Potassium Chloride Carbon Dioxide BUN Creatinine Glucose POC Glucose 178 H 138 H Lactic Acid Calcium Phosphorus Magnesium Total Bilirubin AST ALT Ammonia Lactate Dehydrogenase Total Creatine Kinase CK-MB (CK-2) Troponin T C-Reactive Protein NT-Pro-B Natriuret Pep Total Protein Albumin Triglycerides TSH Arterial Blood Glucose Arterial Blood Ionized Calcium Urine pH Urine WBC (Auto) Urine Creatinine 10/22/20 10/22/20 10/22/20 00:05 04:30 06:15 WBC RBC Hgb Hct RDW Lymph % (Auto) Lynn % (Auto) Eos % (Auto) Lymph # (Auto) Lynn # (Auto) Eos # (Auto) Seg Neutrophils % Lymphocytes % (Manual) Monocytes % (Manual) Seg Neutrophils # Seg Neutrophils # Man Lymphocytes # (Manual) Monocytes # (Manual) D-Dimer Heparin Anti-Xa Level ABG pH 7.225 L POC ABG pCO2 76.6 H POC ABG pO2 ABG pO2 ABG HCO3 ABG O2 Saturation ABG Base Excess ABG Hemoglobin 11.1 L ABG Oxyhemoglobin ABG Sodium ABG Potassium ABG Chloride ABG Glucose 151 H VBG pH Oxyhemoglobin Carboxyhemoglobin Sodium Potassium Chloride Carbon Dioxide 32 H BUN 103 H Creatinine 2.7 H Glucose 151 H POC Glucose 135 H Lactic Acid Calcium Phosphorus Magnesium Total Bilirubin AST ALT Ammonia Lactate Dehydrogenase Total Creatine Kinase CK-MB (CK-2) Troponin T C-Reactive Protein NT-Pro-B Natriuret Pep Total Protein Albumin Triglycerides TSH Arterial Blood Glucose 151 H Arterial Blood Ionized Calcium Urine pH Urine WBC (Auto) Urine Creatinine 10/22/20 10/22/20 10/22/20 06:18 11:34 11:44 WBC RBC Hgb Hct RDW Lymph % (Auto) Lynn % (Auto) Eos % (Auto) Lymph # (Auto) Lynn # (Auto) Eos # (Auto) Seg Neutrophils % Lymphocytes % (Manual) Monocytes % (Manual) Seg Neutrophils # Seg Neutrophils # Man Lymphocytes # (Manual) Monocytes # (Manual) D-Dimer Heparin Anti-Xa Level ABG pH 7.278 L POC ABG pCO2 67.8 H POC ABG pO2 ABG pO2 ABG HCO3 ABG O2 Saturation ABG Base Excess ABG Hemoglobin 10.2 L ABG Oxyhemoglobin ABG Sodium ABG Potassium ABG Chloride ABG Glucose 172 H VBG pH Oxyhemoglobin Carboxyhemoglobin Sodium Potassium Chloride Carbon Dioxide BUN Creatinine Glucose POC Glucose 137 H 147 H Lactic Acid Calcium Phosphorus Magnesium Total Bilirubin AST ALT Ammonia Lactate Dehydrogenase Total Creatine Kinase CK-MB (CK-2) Troponin T C-Reactive Protein NT-Pro-B Natriuret Pep Total Protein Albumin Triglycerides TSH Arterial Blood Glucose 172 H Arterial Blood Ionized Calcium Urine pH Urine WBC (Auto) Urine Creatinine 10/22/20 10/22/20 10/23/20 17:40 23:55 05:11 WBC RBC Hgb Hct RDW Lymph % (Auto) Lynn % (Auto) Eos % (Auto) Lymph # (Auto) Lynn # (Auto) Eos # (Auto) Seg Neutrophils % Lymphocytes % (Manual) Monocytes % (Manual) Seg Neutrophils # Seg Neutrophils # Man Lymphocytes # (Manual) Monocytes # (Manual) D-Dimer Heparin Anti-Xa Level ABG pH POC ABG pCO2 63.6 H POC ABG pO2 81.2 L ABG pO2 ABG HCO3 ABG O2 Saturation ABG Base Excess ABG Hemoglobin 10.6 L ABG Oxyhemoglobin ABG Sodium ABG Potassium ABG Chloride 109.0 H ABG Glucose 149 H VBG pH Oxyhemoglobin Carboxyhemoglobin Sodium Potassium Chloride Carbon Dioxide BUN Creatinine Glucose POC Glucose 141 H 139 H Lactic Acid Calcium Phosphorus Magnesium Total Bilirubin AST ALT Ammonia Lactate Dehydrogenase Total Creatine Kinase CK-MB (CK-2) Troponin T C-Reactive Protein NT-Pro-B Natriuret Pep Total Protein Albumin Triglycerides TSH Arterial Blood Glucose 149 H Arterial Blood Ionized Calcium Urine pH Urine WBC (Auto) Urine Creatinine 10/23/20 10/23/20 10/23/20 05:39 06:00 11:32 WBC RBC Hgb Hct RDW Lymph % (Auto) Lynn % (Auto) Eos % (Auto) Lymph # (Auto) Lynn # (Auto) Eos # (Auto) Seg Neutrophils % Lymphocytes % (Manual) Monocytes % (Manual) Seg Neutrophils # Seg Neutrophils # Man Lymphocytes # (Manual) Monocytes # (Manual) D-Dimer Heparin Anti-Xa Level ABG pH POC ABG pCO2 POC ABG pO2 ABG pO2 ABG HCO3 ABG O2 Saturation ABG Base Excess ABG Hemoglobin ABG Oxyhemoglobin ABG Sodium ABG Potassium ABG Chloride ABG Glucose VBG pH Oxyhemoglobin Carboxyhemoglobin Sodium 146 H Potassium Chloride Carbon Dioxide 35 H BUN 92 H Creatinine 2.0 H Glucose 144 H POC Glucose 139 H 176 H Lactic Acid Calcium Phosphorus Magnesium Total Bilirubin AST ALT Ammonia Lactate Dehydrogenase Total Creatine Kinase CK-MB (CK-2) Troponin T C-Reactive Protein NT-Pro-B Natriuret Pep Total Protein Albumin Triglycerides TSH Arterial Blood Glucose Arterial Blood Ionized Calcium Urine pH Urine WBC (Auto) Urine Creatinine 10/23/20 10/23/20 10/24/20 11:34 17:55 05:33 WBC RBC Hgb Hct RDW Lymph % (Auto) Lynn % (Auto) Eos % (Auto) Lymph # (Auto) Lynn # (Auto) Eos # (Auto) Seg Neutrophils % Lymphocytes % (Manual) Monocytes % (Manual) Seg Neutrophils # Seg Neutrophils # Man Lymphocytes # (Manual) Monocytes # (Manual) D-Dimer Heparin Anti-Xa Level ABG pH POC ABG pCO2 POC ABG pO2 ABG pO2 ABG HCO3 ABG O2 Saturation ABG Base Excess ABG Hemoglobin ABG Oxyhemoglobin ABG Sodium ABG Potassium ABG Chloride ABG Glucose VBG pH Oxyhemoglobin Carboxyhemoglobin Sodium 147 H Potassium Chloride Carbon Dioxide 32 H BUN 76 H Creatinine 1.7 H Glucose 172 H POC Glucose 173 H 135 H Lactic Acid Calcium Phosphorus Magnesium Total Bilirubin AST ALT Ammonia Lactate Dehydrogenase Total Creatine Kinase CK-MB (CK-2) Troponin T C-Reactive Protein NT-Pro-B Natriuret Pep Total Protein Albumin Triglycerides TSH Arterial Blood Glucose Arterial Blood Ionized Calcium Urine pH Urine WBC (Auto) Urine Creatinine 10/24/20 10/24/20 10/24/20 05:41 12:09 18:09 WBC RBC Hgb Hct RDW Lymph % (Auto) Lynn % (Auto) Eos % (Auto) Lymph # (Auto) Lynn # (Auto) Eos # (Auto) Seg Neutrophils % Lymphocytes % (Manual) Monocytes % (Manual) Seg Neutrophils # Seg Neutrophils # Man Lymphocytes # (Manual) Monocytes # (Manual) D-Dimer Heparin Anti-Xa Level ABG pH POC ABG pCO2 POC ABG pO2 ABG pO2 ABG HCO3 ABG O2 Saturation ABG Base Excess ABG Hemoglobin ABG Oxyhemoglobin ABG Sodium ABG Potassium ABG Chloride ABG Glucose VBG pH Oxyhemoglobin Carboxyhemoglobin Sodium Potassium Chloride Carbon Dioxide BUN Creatinine Glucose POC Glucose 156 H 154 H 132 H Lactic Acid Calcium Phosphorus Magnesium Total Bilirubin AST ALT Ammonia Lactate Dehydrogenase Total Creatine Kinase CK-MB (CK-2) Troponin T C-Reactive Protein NT-Pro-B Natriuret Pep Total Protein Albumin Triglycerides TSH Arterial Blood Glucose Arterial Blood Ionized Calcium Urine pH Urine WBC (Auto) Urine Creatinine 10/24/20 10/25/20 10/25/20 23:39 05:29 08:55 WBC RBC Hgb Hct RDW Lymph % (Auto) Lynn % (Auto) Eos % (Auto) Lymph # (Auto) Lynn # (Auto) Eos # (Auto) Seg Neutrophils % Lymphocytes % (Manual) Monocytes % (Manual) Seg Neutrophils # Seg Neutrophils # Man Lymphocytes # (Manual) Monocytes # (Manual) D-Dimer Heparin Anti-Xa Level ABG pH POC ABG pCO2 POC ABG pO2 ABG pO2 ABG HCO3 ABG O2 Saturation ABG Base Excess ABG Hemoglobin ABG Oxyhemoglobin ABG Sodium ABG Potassium ABG Chloride ABG Glucose VBG pH Oxyhemoglobin Carboxyhemoglobin Sodium 150 H Potassium Chloride 108.3 H Carbon Dioxide 32 H BUN 57 H Creatinine 1.5 H Glucose 142 H POC Glucose 131 H 142 H Lactic Acid Calcium Phosphorus Magnesium Total Bilirubin AST ALT Ammonia Lactate Dehydrogenase Total Creatine Kinase CK-MB (CK-2) Troponin T C-Reactive Protein NT-Pro-B Natriuret Pep Total Protein Albumin Triglycerides TSH Arterial Blood Glucose Arterial Blood Ionized Calcium Urine pH Urine WBC (Auto) Urine Creatinine 10/25/20 10/25/20 10/25/20 08:55 11:08 18:10 WBC 14.3 H RBC 3.57 L Hgb 10.3 L Hct 31.6 L RDW Lymph % (Auto) Lynn % (Auto) Eos % (Auto) Lymph # (Auto) Lynn # (Auto) Eos # (Auto) Seg Neutrophils % Lymphocytes % (Manual) Monocytes % (Manual) Seg Neutrophils # Seg Neutrophils # Man Lymphocytes # (Manual) Monocytes # (Manual) D-Dimer Heparin Anti-Xa Level ABG pH POC ABG pCO2 52.3 H POC ABG pO2 ABG pO2 ABG HCO3 ABG O2 Saturation ABG Base Excess ABG Hemoglobin 11.2 L ABG Oxyhemoglobin ABG Sodium ABG Potassium ABG Chloride 108.0 H ABG Glucose 167 H VBG pH Oxyhemoglobin Carboxyhemoglobin Sodium Potassium Chloride Carbon Dioxide BUN Creatinine Glucose POC Glucose 157 H Lactic Acid Calcium Phosphorus Magnesium Total Bilirubin AST ALT Ammonia Lactate Dehydrogenase Total Creatine Kinase CK-MB (CK-2) Troponin T C-Reactive Protein NT-Pro-B Natriuret Pep Total Protein Albumin Triglycerides TSH Arterial Blood Glucose 167 H Arterial Blood Ionized Calcium Urine pH Urine WBC (Auto) Urine Creatinine 10/25/20 10/26/20 10/26/20 18:20 00:20 06:08 WBC RBC Hgb Hct RDW Lymph % (Auto) Lynn % (Auto) Eos % (Auto) Lymph # (Auto) Lynn # (Auto) Eos # (Auto) Seg Neutrophils % Lymphocytes % (Manual) Monocytes % (Manual) Seg Neutrophils # Seg Neutrophils # Man Lymphocytes # (Manual) Monocytes # (Manual) D-Dimer Heparin Anti-Xa Level ABG pH POC ABG pCO2 POC ABG pO2 ABG pO2 ABG HCO3 ABG O2 Saturation ABG Base Excess ABG Hemoglobin ABG Oxyhemoglobin ABG Sodium ABG Potassium ABG Chloride ABG Glucose VBG pH Oxyhemoglobin Carboxyhemoglobin Sodium Potassium Chloride Carbon Dioxide BUN Creatinine Glucose POC Glucose 127 H 108 H 119 H Lactic Acid Calcium Phosphorus Magnesium Total Bilirubin AST ALT Ammonia Lactate Dehydrogenase Total Creatine Kinase CK-MB (CK-2) Troponin T C-Reactive Protein NT-Pro-B Natriuret Pep Total Protein Albumin Triglycerides TSH Arterial Blood Glucose Arterial Blood Ionized Calcium Urine pH Urine WBC (Auto) Urine Creatinine 10/26/20 10/26/20 10/26/20 07:38 07:38 11:28 WBC 13.5 H RBC 3.37 L Hgb 9.8 L Hct 30.0 L RDW Lymph % (Auto) Lynn % (Auto) Eos % (Auto) Lymph # (Auto) Lynn # (Auto) Eos # (Auto) Seg Neutrophils % Lymphocytes % (Manual) Monocytes % (Manual) Seg Neutrophils # Seg Neutrophils # Man Lymphocytes # (Manual) Monocytes # (Manual) D-Dimer Heparin Anti-Xa Level ABG pH POC ABG pCO2 POC ABG pO2 ABG pO2 ABG HCO3 ABG O2 Saturation ABG Base Excess ABG Hemoglobin ABG Oxyhemoglobin ABG Sodium ABG Potassium ABG Chloride ABG Glucose VBG pH Oxyhemoglobin Carboxyhemoglobin Sodium 149 H Potassium Chloride 107.6 H Carbon Dioxide 34 H BUN 49 H Creatinine 1.4 H Glucose 137 H POC Glucose 148 H Lactic Acid Calcium Phosphorus Magnesium Total Bilirubin AST ALT Ammonia Lactate Dehydrogenase Total Creatine Kinase CK-MB (CK-2) Troponin T C-Reactive Protein NT-Pro-B Natriuret Pep Total Protein Albumin Triglycerides TSH Arterial Blood Glucose Arterial Blood Ionized Calcium Urine pH Urine WBC (Auto) Urine Creatinine 10/26/20 10/26/20 10/27/20 18:17 23:37 05:08 WBC RBC Hgb Hct RDW Lymph % (Auto) Lynn % (Auto) Eos % (Auto) Lymph # (Auto) Lynn # (Auto) Eos # (Auto) Seg Neutrophils % Lymphocytes % (Manual) Monocytes % (Manual) Seg Neutrophils # Seg Neutrophils # Man Lymphocytes # (Manual) Monocytes # (Manual) D-Dimer Heparin Anti-Xa Level ABG pH POC ABG pCO2 POC ABG pO2 ABG pO2 ABG HCO3 ABG O2 Saturation ABG Base Excess ABG Hemoglobin ABG Oxyhemoglobin ABG Sodium ABG Potassium ABG Chloride ABG Glucose VBG pH Oxyhemoglobin Carboxyhemoglobin Sodium Potassium Chloride Carbon Dioxide BUN Creatinine Glucose POC Glucose 121 H 152 H 120 H Lactic Acid Calcium Phosphorus Magnesium Total Bilirubin AST ALT Ammonia Lactate Dehydrogenase Total Creatine Kinase CK-MB (CK-2) Troponin T C-Reactive Protein NT-Pro-B Natriuret Pep Total Protein Albumin Triglycerides TSH Arterial Blood Glucose Arterial Blood Ionized Calcium Urine pH Urine WBC (Auto) Urine Creatinine 10/27/20 10/27/20 10/27/20 07:30 07:30 11:59 WBC RBC 3.46 L Hgb 10.2 L Hct 30.9 L RDW Lymph % (Auto) Lynn % (Auto) Eos % (Auto) Lymph # (Auto) Lynn # (Auto) Eos # (Auto) Seg Neutrophils % Lymphocytes % (Manual) Monocytes % (Manual) Seg Neutrophils # Seg Neutrophils # Man Lymphocytes # (Manual) Monocytes # (Manual) D-Dimer Heparin Anti-Xa Level ABG pH POC ABG pCO2 POC ABG pO2 ABG pO2 ABG HCO3 ABG O2 Saturation ABG Base Excess ABG Hemoglobin ABG Oxyhemoglobin ABG Sodium ABG Potassium ABG Chloride ABG Glucose VBG pH Oxyhemoglobin Carboxyhemoglobin Sodium 146 H Potassium Chloride Carbon Dioxide 34 H BUN 45 H Creatinine Glucose 131 H POC Glucose 143 H Lactic Acid Calcium Phosphorus Magnesium Total Bilirubin AST ALT Ammonia Lactate Dehydrogenase Total Creatine Kinase CK-MB (CK-2) Troponin T C-Reactive Protein NT-Pro-B Natriuret Pep Total Protein Albumin Triglycerides TSH Arterial Blood Glucose Arterial Blood Ionized Calcium Urine pH Urine WBC (Auto) Urine Creatinine 10/27/20 10/27/20 10/28/20 18:52 23:03 07:00 WBC RBC Hgb Hct RDW Lymph % (Auto) Lynn % (Auto) Eos % (Auto) Lymph # (Auto) Lynn # (Auto) Eos # (Auto) Seg Neutrophils % Lymphocytes % (Manual) Monocytes % (Manual) Seg Neutrophils # Seg Neutrophils # Man Lymphocytes # (Manual) Monocytes # (Manual) D-Dimer Heparin Anti-Xa Level ABG pH POC ABG pCO2 POC ABG pO2 ABG pO2 ABG HCO3 ABG O2 Saturation ABG Base Excess ABG Hemoglobin ABG Oxyhemoglobin ABG Sodium ABG Potassium ABG Chloride ABG Glucose VBG pH Oxyhemoglobin Carboxyhemoglobin Sodium 147 H Potassium Chloride Carbon Dioxide 35 H BUN 39 H Creatinine Glucose 133 H POC Glucose 119 H 158 H Lactic Acid Calcium Phosphorus Magnesium Total Bilirubin AST ALT Ammonia Lactate Dehydrogenase Total Creatine Kinase CK-MB (CK-2) Troponin T C-Reactive Protein NT-Pro-B Natriuret Pep Total Protein Albumin Triglycerides TSH Arterial Blood Glucose Arterial Blood Ionized Calcium Urine pH Urine WBC (Auto) Urine Creatinine 10/28/20 10/28/20 10/28/20 09:00 11:47 17:15 WBC 12.5 H RBC 3.58 L Hgb 10.5 L Hct 32.1 L RDW Lymph % (Auto) Lynn % (Auto) Eos % (Auto) Lymph # (Auto) Lynn # (Auto) Eos # (Auto) Seg Neutrophils % Lymphocytes % (Manual) Monocytes % (Manual) Seg Neutrophils # Seg Neutrophils # Man Lymphocytes # (Manual) Monocytes # (Manual) D-Dimer Heparin Anti-Xa Level ABG pH POC ABG pCO2 POC ABG pO2 ABG pO2 ABG HCO3 ABG O2 Saturation ABG Base Excess ABG Hemoglobin ABG Oxyhemoglobin ABG Sodium ABG Potassium ABG Chloride ABG Glucose VBG pH Oxyhemoglobin Carboxyhemoglobin Sodium Potassium Chloride Carbon Dioxide BUN Creatinine Glucose POC Glucose 129 H 109 H Lactic Acid Calcium Phosphorus Magnesium Total Bilirubin AST ALT Ammonia Lactate Dehydrogenase Total Creatine Kinase CK-MB (CK-2) Troponin T C-Reactive Protein NT-Pro-B Natriuret Pep Total Protein Albumin Triglycerides TSH Arterial Blood Glucose Arterial Blood Ionized Calcium Urine pH Urine WBC (Auto) Urine Creatinine 10/28/20 10/29/20 10/29/20 23:31 04:23 04:23 WBC 13.6 H RBC 3.47 L Hgb 10.5 L Hct 30.7 L RDW 15.4 H Lymph % (Auto) Lynn % (Auto) Eos % (Auto) Lymph # (Auto) Lynn # (Auto) Eos # (Auto) Seg Neutrophils % Lymphocytes % (Manual) Monocytes % (Manual) Seg Neutrophils # Seg Neutrophils # Man Lymphocytes # (Manual) Monocytes # (Manual) D-Dimer Heparin Anti-Xa Level ABG pH POC ABG pCO2 POC ABG pO2 ABG pO2 ABG HCO3 ABG O2 Saturation ABG Base Excess ABG Hemoglobin ABG Oxyhemoglobin ABG Sodium ABG Potassium ABG Chloride ABG Glucose VBG pH Oxyhemoglobin Carboxyhemoglobin Sodium Potassium Chloride Carbon Dioxide 35 H BUN 34 H Creatinine Glucose 107 H POC Glucose 138 H Lactic Acid Calcium Phosphorus Magnesium Total Bilirubin AST ALT Ammonia Lactate Dehydrogenase Total Creatine Kinase CK-MB (CK-2) Troponin T C-Reactive Protein NT-Pro-B Natriuret Pep Total Protein Albumin Triglycerides TSH Arterial Blood Glucose Arterial Blood Ionized Calcium Urine pH Urine WBC (Auto) Urine Creatinine 10/29/20 10/29/20 10/29/20 05:21 11:49 23:19 WBC RBC Hgb Hct RDW Lymph % (Auto) Lynn % (Auto) Eos % (Auto) Lymph # (Auto) Lynn # (Auto) Eos # (Auto) Seg Neutrophils % Lymphocytes % (Manual) Monocytes % (Manual) Seg Neutrophils # Seg Neutrophils # Man Lymphocytes # (Manual) Monocytes # (Manual) D-Dimer Heparin Anti-Xa Level ABG pH POC ABG pCO2 POC ABG pO2 ABG pO2 ABG HCO3 ABG O2 Saturation ABG Base Excess ABG Hemoglobin ABG Oxyhemoglobin ABG Sodium ABG Potassium ABG Chloride ABG Glucose VBG pH Oxyhemoglobin Carboxyhemoglobin Sodium Potassium Chloride Carbon Dioxide BUN Creatinine Glucose POC Glucose 115 H 124 H 129 H Lactic Acid Calcium Phosphorus Magnesium Total Bilirubin AST ALT Ammonia Lactate Dehydrogenase Total Creatine Kinase CK-MB (CK-2) Troponin T C-Reactive Protein NT-Pro-B Natriuret Pep Total Protein Albumin Triglycerides TSH Arterial Blood Glucose Arterial Blood Ionized Calcium Urine pH Urine WBC (Auto) Urine Creatinine 10/30/20 10/30/20 10/30/20 04:59 05:10 11:52 WBC RBC Hgb Hct RDW Lymph % (Auto) Lynn % (Auto) Eos % (Auto) Lymph # (Auto) Lynn # (Auto) Eos # (Auto) Seg Neutrophils % Lymphocytes % (Manual) Monocytes % (Manual) Seg Neutrophils # Seg Neutrophils # Man Lymphocytes # (Manual) Monocytes # (Manual) D-Dimer Heparin Anti-Xa Level ABG pH POC ABG pCO2 POC ABG pO2 ABG pO2 ABG HCO3 ABG O2 Saturation ABG Base Excess ABG Hemoglobin ABG Oxyhemoglobin ABG Sodium ABG Potassium ABG Chloride ABG Glucose VBG pH Oxyhemoglobin Carboxyhemoglobin Sodium Potassium Chloride Carbon Dioxide 34 H BUN 33 H Creatinine Glucose 128 H POC Glucose 126 H 132 H Lactic Acid Calcium Phosphorus Magnesium Total Bilirubin AST ALT Ammonia Lactate Dehydrogenase Total Creatine Kinase CK-MB (CK-2) Troponin T C-Reactive Protein NT-Pro-B Natriuret Pep Total Protein Albumin Triglycerides TSH Arterial Blood Glucose Arterial Blood Ionized Calcium Urine pH Urine WBC (Auto) Urine Creatinine 10/30/20 10/30/20 10/31/20 16:59 23:19 04:00 WBC RBC Hgb Hct RDW Lymph % (Auto) Lynn % (Auto) Eos % (Auto) Lymph # (Auto) Lynn # (Auto) Eos # (Auto) Seg Neutrophils % Lymphocytes % (Manual) Monocytes % (Manual) Seg Neutrophils # Seg Neutrophils # Man Lymphocytes # (Manual) Monocytes # (Manual) D-Dimer Heparin Anti-Xa Level ABG pH POC ABG pCO2 POC ABG pO2 ABG pO2 ABG HCO3 ABG O2 Saturation ABG Base Excess ABG Hemoglobin ABG Oxyhemoglobin ABG Sodium ABG Potassium ABG Chloride ABG Glucose VBG pH Oxyhemoglobin Carboxyhemoglobin Sodium Potassium Chloride Carbon Dioxide 38 H BUN 32 H Creatinine Glucose 121 H POC Glucose 118 H 138 H Lactic Acid Calcium Phosphorus Magnesium Total Bilirubin AST ALT Ammonia Lactate Dehydrogenase Total Creatine Kinase CK-MB (CK-2) Troponin T C-Reactive Protein NT-Pro-B Natriuret Pep Total Protein Albumin Triglycerides TSH Arterial Blood Glucose Arterial Blood Ionized Calcium Urine pH Urine WBC (Auto) Urine Creatinine 10/31/20 10/31/20 10/31/20 05:13 11:09 16:17 WBC RBC Hgb Hct RDW Lymph % (Auto) Lynn % (Auto) Eos % (Auto) Lymph # (Auto) Lynn # (Auto) Eos # (Auto) Seg Neutrophils % Lymphocytes % (Manual) Monocytes % (Manual) Seg Neutrophils # Seg Neutrophils # Man Lymphocytes # (Manual) Monocytes # (Manual) D-Dimer Heparin Anti-Xa Level ABG pH POC ABG pCO2 71.1 H POC ABG pO2 67.4 L ABG pO2 ABG HCO3 ABG O2 Saturation ABG Base Excess ABG Hemoglobin 10.9 L ABG Oxyhemoglobin 90.7 L ABG Sodium ABG Potassium ABG Chloride ABG Glucose 134 H VBG pH Oxyhemoglobin Carboxyhemoglobin Sodium Potassium Chloride Carbon Dioxide BUN Creatinine Glucose POC Glucose 110 H 138 H Lactic Acid Calcium Phosphorus Magnesium Total Bilirubin AST ALT Ammonia Lactate Dehydrogenase Total Creatine Kinase CK-MB (CK-2) Troponin T C-Reactive Protein NT-Pro-B Natriuret Pep Total Protein Albumin Triglycerides TSH Arterial Blood Glucose 134 H Arterial Blood Ionized Calcium Urine pH Urine WBC (Auto) Urine Creatinine 10/31/20 10/31/20 11/01/20 18:16 23:56 04:09 WBC 11.3 H RBC 3.05 L Hgb 9.0 L Hct 27.3 L RDW Lymph % (Auto) Lynn % (Auto) Eos % (Auto) Lymph # (Auto) Lynn # (Auto) Eos # (Auto) Seg Neutrophils % Lymphocytes % (Manual) Monocytes % (Manual) Seg Neutrophils # Seg Neutrophils # Man Lymphocytes # (Manual) Monocytes # (Manual) D-Dimer Heparin Anti-Xa Level ABG pH POC ABG pCO2 POC ABG pO2 ABG pO2 ABG HCO3 ABG O2 Saturation ABG Base Excess ABG Hemoglobin ABG Oxyhemoglobin ABG Sodium ABG Potassium ABG Chloride ABG Glucose VBG pH Oxyhemoglobin Carboxyhemoglobin Sodium Potassium Chloride Carbon Dioxide BUN Creatinine Glucose POC Glucose 135 H 122 H Lactic Acid Calcium Phosphorus Magnesium Total Bilirubin AST ALT Ammonia Lactate Dehydrogenase Total Creatine Kinase CK-MB (CK-2) Troponin T C-Reactive Protein NT-Pro-B Natriuret Pep Total Protein Albumin Triglycerides TSH Arterial Blood Glucose Arterial Blood Ionized Calcium Urine pH Urine WBC (Auto) Urine Creatinine 11/01/20 11/01/20 11/01/20 05:10 11:51 17:17 WBC RBC Hgb Hct RDW Lymph % (Auto) Lynn % (Auto) Eos % (Auto) Lymph # (Auto) Lynn # (Auto) Eos # (Auto) Seg Neutrophils % Lymphocytes % (Manual) Monocytes % (Manual) Seg Neutrophils # Seg Neutrophils # Man Lymphocytes # (Manual) Monocytes # (Manual) D-Dimer Heparin Anti-Xa Level ABG pH POC ABG pCO2 POC ABG pO2 ABG pO2 ABG HCO3 ABG O2 Saturation ABG Base Excess ABG Hemoglobin ABG Oxyhemoglobin ABG Sodium ABG Potassium ABG Chloride ABG Glucose VBG pH Oxyhemoglobin Carboxyhemoglobin Sodium Potassium Chloride Carbon Dioxide BUN Creatinine Glucose POC Glucose 123 H 123 H 120 H Lactic Acid Calcium Phosphorus Magnesium Total Bilirubin AST ALT Ammonia Lactate Dehydrogenase Total Creatine Kinase CK-MB (CK-2) Troponin T C-Reactive Protein NT-Pro-B Natriuret Pep Total Protein Albumin Triglycerides TSH Arterial Blood Glucose Arterial Blood Ionized Calcium Urine pH Urine WBC (Auto) Urine Creatinine 11/02/20 11/02/20 11/02/20 03:14 05:37 05:37 WBC RBC Hgb 9.8 L Hct 29.5 L RDW Lymph % (Auto) Lynn % (Auto) Eos % (Auto) Lymph # (Auto) Lynn # (Auto) Eos # (Auto) Seg Neutrophils % Lymphocytes % (Manual) Monocytes % (Manual) Seg Neutrophils # Seg Neutrophils # Man Lymphocytes # (Manual) Monocytes # (Manual) D-Dimer Heparin Anti-Xa Level ABG pH POC ABG pCO2 58.9 H POC ABG pO2 79.9 L ABG pO2 ABG HCO3 ABG O2 Saturation ABG Base Excess ABG Hemoglobin 10.6 L ABG Oxyhemoglobin ABG Sodium ABG Potassium ABG Chloride ABG Glucose 110 H VBG pH Oxyhemoglobin Carboxyhemoglobin Sodium Potassium Chloride Carbon Dioxide 37 H BUN 28 H Creatinine Glucose 106 H POC Glucose Lactic Acid Calcium Phosphorus Magnesium Total Bilirubin AST ALT Ammonia Lactate Dehydrogenase Total Creatine Kinase CK-MB (CK-2) Troponin T C-Reactive Protein NT-Pro-B Natriuret Pep Total Protein Albumin Triglycerides TSH Arterial Blood Glucose 110 H Arterial Blood Ionized Calcium Urine pH Urine WBC (Auto) Urine Creatinine 11/02/20 11/03/20 11/03/20 23:29 04:45 04:45 WBC 11.8 H RBC 3.07 L Hgb 9.0 L Hct 27.2 L RDW Lymph % (Auto) 11.4 L Lynn % (Auto) 9.5 H Eos % (Auto) Lymph # (Auto) Lynn # (Auto) 1.1 H Eos # (Auto) Seg Neutrophils % 75.9 H Lymphocytes % (Manual) Monocytes % (Manual) Seg Neutrophils # 9.0 H Seg Neutrophils # Man Lymphocytes # (Manual) Monocytes # (Manual) D-Dimer Heparin Anti-Xa Level ABG pH POC ABG pCO2 POC ABG pO2 ABG pO2 ABG HCO3 ABG O2 Saturation ABG Base Excess ABG Hemoglobin ABG Oxyhemoglobin ABG Sodium ABG Potassium ABG Chloride ABG Glucose VBG pH Oxyhemoglobin Carboxyhemoglobin Sodium 146 H Potassium Chloride Carbon Dioxide 39 H BUN 26 H Creatinine Glucose POC Glucose 129 H Lactic Acid Calcium Phosphorus Magnesium Total Bilirubin AST ALT Ammonia Lactate Dehydrogenase Total Creatine Kinase CK-MB (CK-2) Troponin T C-Reactive Protein NT-Pro-B Natriuret Pep Total Protein Albumin Triglycerides TSH Arterial Blood Glucose Arterial Blood Ionized Calcium Urine pH Urine WBC (Auto) Urine Creatinine 11/03/20 11/03/20 11/03/20 05:05 11:51 17:43 WBC RBC Hgb Hct RDW Lymph % (Auto) Lynn % (Auto) Eos % (Auto) Lymph # (Auto) Lynn # (Auto) Eos # (Auto) Seg Neutrophils % Lymphocytes % (Manual) Monocytes % (Manual) Seg Neutrophils # Seg Neutrophils # Man Lymphocytes # (Manual) Monocytes # (Manual) D-Dimer Heparin Anti-Xa Level ABG pH 7.452 H POC ABG pCO2 55.4 H POC ABG pO2 129.1 H ABG pO2 ABG HCO3 ABG O2 Saturation ABG Base Excess ABG Hemoglobin 9.3 L ABG Oxyhemoglobin ABG Sodium ABG Potassium ABG Chloride ABG Glucose 99 H VBG pH Oxyhemoglobin Carboxyhemoglobin 1.7 H Sodium Potassium Chloride Carbon Dioxide BUN Creatinine Glucose POC Glucose 131 H 125 H Lactic Acid Calcium Phosphorus Magnesium Total Bilirubin AST ALT Ammonia Lactate Dehydrogenase Total Creatine Kinase CK-MB (CK-2) Troponin T C-Reactive Protein NT-Pro-B Natriuret Pep Total Protein Albumin Triglycerides TSH Arterial Blood Glucose 99 H Arterial Blood Ionized Calcium Urine pH Urine WBC (Auto) Urine Creatinine 11/03/20 11/04/20 11/04/20 23:27 04:00 05:10 WBC RBC Hgb Hct RDW Lymph % (Auto) Lynn % (Auto) Eos % (Auto) Lymph # (Auto) Lynn # (Auto) Eos # (Auto) Seg Neutrophils % Lymphocytes % (Manual) Monocytes % (Manual) Seg Neutrophils # Seg Neutrophils # Man Lymphocytes # (Manual) Monocytes # (Manual) D-Dimer Heparin Anti-Xa Level ABG pH POC ABG pCO2 POC ABG pO2 ABG pO2 ABG HCO3 ABG O2 Saturation ABG Base Excess ABG Hemoglobin ABG Oxyhemoglobin ABG Sodium ABG Potassium ABG Chloride ABG Glucose VBG pH Oxyhemoglobin Carboxyhemoglobin Sodium Potassium Chloride 95.2 L Carbon Dioxide 40 H BUN 26 H Creatinine Glucose 128 H POC Glucose 148 H 126 H Lactic Acid Calcium Phosphorus Magnesium Total Bilirubin AST ALT Ammonia Lactate Dehydrogenase Total Creatine Kinase CK-MB (CK-2) Troponin T C-Reactive Protein NT-Pro-B Natriuret Pep Total Protein Albumin Triglycerides TSH Arterial Blood Glucose Arterial Blood Ionized Calcium Urine pH Urine WBC (Auto) Urine Creatinine 11/04/20 11/04/20 11/04/20 11:39 18:00 21:18 WBC RBC Hgb Hct RDW Lymph % (Auto) Lynn % (Auto) Eos % (Auto) Lymph # (Auto) Lynn # (Auto) Eos # (Auto) Seg Neutrophils % Lymphocytes % (Manual) Monocytes % (Manual) Seg Neutrophils # Seg Neutrophils # Man Lymphocytes # (Manual) Monocytes # (Manual) D-Dimer Heparin Anti-Xa Level ABG pH 7.511 H POC ABG pCO2 49.0 H POC ABG pO2 ABG pO2 ABG HCO3 ABG O2 Saturation ABG Base Excess ABG Hemoglobin 9.5 L ABG Oxyhemoglobin ABG Sodium 135.7 L ABG Potassium ABG Chloride ABG Glucose 152 H VBG pH Oxyhemoglobin Carboxyhemoglobin Sodium Potassium Chloride Carbon Dioxide BUN Creatinine Glucose POC Glucose 142 H 130 H Lactic Acid Calcium Phosphorus Magnesium Total Bilirubin AST ALT Ammonia Lactate Dehydrogenase Total Creatine Kinase CK-MB (CK-2) Troponin T C-Reactive Protein NT-Pro-B Natriuret Pep Total Protein Albumin Triglycerides TSH Arterial Blood Glucose 152 H Arterial Blood Ionized Calcium 4.3 L Urine pH Urine WBC (Auto) Urine Creatinine 11/04/20 11/05/20 11/05/20 23:19 03:30 03:30 WBC RBC 3.02 L Hgb 9.1 L Hct 26.7 L RDW Lymph % (Auto) Lynn % (Auto) Eos % (Auto) Lymph # (Auto) Lynn # (Auto) Eos # (Auto) Seg Neutrophils % Lymphocytes % (Manual) Monocytes % (Manual) Seg Neutrophils # Seg Neutrophils # Man Lymphocytes # (Manual) Monocytes # (Manual) D-Dimer Heparin Anti-Xa Level ABG pH POC ABG pCO2 POC ABG pO2 ABG pO2 ABG HCO3 ABG O2 Saturation ABG Base Excess ABG Hemoglobin ABG Oxyhemoglobin ABG Sodium ABG Potassium ABG Chloride ABG Glucose VBG pH Oxyhemoglobin Carboxyhemoglobin Sodium Potassium Chloride 93.6 L Carbon Dioxide 40 H BUN 24 H Creatinine Glucose 121 H POC Glucose 126 H Lactic Acid Calcium Phosphorus Magnesium Total Bilirubin AST ALT Ammonia Lactate Dehydrogenase Total Creatine Kinase CK-MB (CK-2) Troponin T C-Reactive Protein NT-Pro-B Natriuret Pep Total Protein Albumin Triglycerides TSH Arterial Blood Glucose Arterial Blood Ionized Calcium Urine pH Urine WBC (Auto) Urine Creatinine 11/05/20 11/05/20 11/05/20 05:24 11:37 17:37 WBC RBC Hgb Hct RDW Lymph % (Auto) Lynn % (Auto) Eos % (Auto) Lymph # (Auto) Lynn # (Auto) Eos # (Auto) Seg Neutrophils % Lymphocytes % (Manual) Monocytes % (Manual) Seg Neutrophils # Seg Neutrophils # Man Lymphocytes # (Manual) Monocytes # (Manual) D-Dimer Heparin Anti-Xa Level ABG pH POC ABG pCO2 POC ABG pO2 ABG pO2 ABG HCO3 ABG O2 Saturation ABG Base Excess ABG Hemoglobin ABG Oxyhemoglobin ABG Sodium ABG Potassium ABG Chloride ABG Glucose VBG pH Oxyhemoglobin Carboxyhemoglobin Sodium Potassium Chloride Carbon Dioxide BUN Creatinine Glucose POC Glucose 124 H 125 H 153 H Lactic Acid Calcium Phosphorus Magnesium Total Bilirubin AST ALT Ammonia Lactate Dehydrogenase Total Creatine Kinase CK-MB (CK-2) Troponin T C-Reactive Protein NT-Pro-B Natriuret Pep Total Protein Albumin Triglycerides TSH Arterial Blood Glucose Arterial Blood Ionized Calcium Urine pH Urine WBC (Auto) Urine Creatinine 11/05/20 11/06/20 11/06/20 23:20 05:24 12:17 WBC RBC Hgb Hct RDW Lymph % (Auto) Lynn % (Auto) Eos % (Auto) Lymph # (Auto) Lynn # (Auto) Eos # (Auto) Seg Neutrophils % Lymphocytes % (Manual) Monocytes % (Manual) Seg Neutrophils # Seg Neutrophils # Man Lymphocytes # (Manual) Monocytes # (Manual) D-Dimer Heparin Anti-Xa Level ABG pH POC ABG pCO2 POC ABG pO2 ABG pO2 ABG HCO3 ABG O2 Saturation ABG Base Excess ABG Hemoglobin ABG Oxyhemoglobin ABG Sodium ABG Potassium ABG Chloride ABG Glucose VBG pH Oxyhemoglobin Carboxyhemoglobin Sodium Potassium Chloride Carbon Dioxide BUN Creatinine Glucose POC Glucose 133 H 143 H 139 H Lactic Acid Calcium Phosphorus Magnesium Total Bilirubin AST ALT Ammonia Lactate Dehydrogenase Total Creatine Kinase CK-MB (CK-2) Troponin T C-Reactive Protein NT-Pro-B Natriuret Pep Total Protein Albumin Triglycerides TSH Arterial Blood Glucose Arterial Blood Ionized Calcium Urine pH Urine WBC (Auto) Urine Creatinine 11/06/20 11/06/20 11/07/20 17:38 23:26 04:50 WBC RBC 3.24 L Hgb 9.6 L Hct 29.0 L RDW Lymph % (Auto) Lynn % (Auto) 10.3 H Eos % (Auto) 6.9 H Lymph # (Auto) Lynn # (Auto) Eos # (Auto) 0.5 H Seg Neutrophils % Lymphocytes % (Manual) Monocytes % (Manual) Seg Neutrophils # Seg Neutrophils # Man Lymphocytes # (Manual) Monocytes # (Manual) D-Dimer Heparin Anti-Xa Level ABG pH POC ABG pCO2 POC ABG pO2 ABG pO2 ABG HCO3 ABG O2 Saturation ABG Base Excess ABG Hemoglobin ABG Oxyhemoglobin ABG Sodium ABG Potassium ABG Chloride ABG Glucose VBG pH Oxyhemoglobin Carboxyhemoglobin Sodium Potassium Chloride Carbon Dioxide BUN Creatinine Glucose POC Glucose 139 H 117 H Lactic Acid Calcium Phosphorus Magnesium Total Bilirubin AST ALT Ammonia Lactate Dehydrogenase Total Creatine Kinase CK-MB (CK-2) Troponin T C-Reactive Protein NT-Pro-B Natriuret Pep Total Protein Albumin Triglycerides TSH Arterial Blood Glucose Arterial Blood Ionized Calcium Urine pH Urine WBC (Auto) Urine Creatinine 11/07/20 11/07/20 11/07/20 04:50 05:10 12:22 WBC RBC Hgb Hct RDW Lymph % (Auto) Lynn % (Auto) Eos % (Auto) Lymph # (Auto) Lynn # (Auto) Eos # (Auto) Seg Neutrophils % Lymphocytes % (Manual) Monocytes % (Manual) Seg Neutrophils # Seg Neutrophils # Man Lymphocytes # (Manual) Monocytes # (Manual) D-Dimer Heparin Anti-Xa Level ABG pH POC ABG pCO2 POC ABG pO2 ABG pO2 ABG HCO3 ABG O2 Saturation ABG Base Excess ABG Hemoglobin ABG Oxyhemoglobin ABG Sodium ABG Potassium ABG Chloride ABG Glucose VBG pH Oxyhemoglobin Carboxyhemoglobin Sodium Potassium Chloride 97.2 L Carbon Dioxide 36 H BUN 25 H Creatinine Glucose 130 H POC Glucose 115 H 118 H Lactic Acid Calcium Phosphorus Magnesium Total Bilirubin AST ALT Ammonia Lactate Dehydrogenase Total Creatine Kinase CK-MB (CK-2) Troponin T C-Reactive Protein NT-Pro-B Natriuret Pep Total Protein Albumin Triglycerides TSH Arterial Blood Glucose Arterial Blood Ionized Calcium Urine pH Urine WBC (Auto) Urine Creatinine 11/07/20 11/07/20 11/08/20 17:46 23:53 07:16 WBC RBC Hgb Hct RDW Lymph % (Auto) Lynn % (Auto) Eos % (Auto) Lymph # (Auto) Lynn # (Auto) Eos # (Auto) Seg Neutrophils % Lymphocytes % (Manual) Monocytes % (Manual) Seg Neutrophils # Seg Neutrophils # Man Lymphocytes # (Manual) Monocytes # (Manual) D-Dimer Heparin Anti-Xa Level ABG pH POC ABG pCO2 POC ABG pO2 ABG pO2 ABG HCO3 ABG O2 Saturation ABG Base Excess ABG Hemoglobin ABG Oxyhemoglobin ABG Sodium ABG Potassium ABG Chloride ABG Glucose VBG pH Oxyhemoglobin Carboxyhemoglobin Sodium Potassium Chloride Carbon Dioxide BUN Creatinine Glucose POC Glucose 150 H 141 H 134 H Lactic Acid Calcium Phosphorus Magnesium Total Bilirubin AST ALT Ammonia Lactate Dehydrogenase Total Creatine Kinase CK-MB (CK-2) Troponin T C-Reactive Protein NT-Pro-B Natriuret Pep Total Protein Albumin Triglycerides TSH Arterial Blood Glucose Arterial Blood Ionized Calcium Urine pH Urine WBC (Auto) Urine Creatinine 11/08/20 11/08/20 11/08/20 11:35 17:59 23:50 WBC RBC Hgb Hct RDW Lymph % (Auto) Lynn % (Auto) Eos % (Auto) Lymph # (Auto) Lynn # (Auto) Eos # (Auto) Seg Neutrophils % Lymphocytes % (Manual) Monocytes % (Manual) Seg Neutrophils # Seg Neutrophils # Man Lymphocytes # (Manual) Monocytes # (Manual) D-Dimer Heparin Anti-Xa Level ABG pH POC ABG pCO2 POC ABG pO2 ABG pO2 ABG HCO3 ABG O2 Saturation ABG Base Excess ABG Hemoglobin ABG Oxyhemoglobin ABG Sodium ABG Potassium ABG Chloride ABG Glucose VBG pH Oxyhemoglobin Carboxyhemoglobin Sodium Potassium Chloride Carbon Dioxide BUN Creatinine Glucose POC Glucose 148 H 118 H 131 H Lactic Acid Calcium Phosphorus Magnesium Total Bilirubin AST ALT Ammonia Lactate Dehydrogenase Total Creatine Kinase CK-MB (CK-2) Troponin T C-Reactive Protein NT-Pro-B Natriuret Pep Total Protein Albumin Triglycerides TSH Arterial Blood Glucose Arterial Blood Ionized Calcium Urine pH Urine WBC (Auto) Urine Creatinine 11/09/20 11/09/20 11/09/20 12:07 17:00 23:45 WBC RBC Hgb Hct RDW Lymph % (Auto) Lynn % (Auto) Eos % (Auto) Lymph # (Auto) Lynn # (Auto) Eos # (Auto) Seg Neutrophils % Lymphocytes % (Manual) Monocytes % (Manual) Seg Neutrophils # Seg Neutrophils # Man Lymphocytes # (Manual) Monocytes # (Manual) D-Dimer Heparin Anti-Xa Level ABG pH POC ABG pCO2 POC ABG pO2 ABG pO2 ABG HCO3 ABG O2 Saturation ABG Base Excess ABG Hemoglobin ABG Oxyhemoglobin ABG Sodium ABG Potassium ABG Chloride ABG Glucose VBG pH Oxyhemoglobin Carboxyhemoglobin Sodium Potassium Chloride Carbon Dioxide BUN Creatinine Glucose POC Glucose 133 H 126 H 129 H Lactic Acid Calcium Phosphorus Magnesium Total Bilirubin AST ALT Ammonia Lactate Dehydrogenase Total Creatine Kinase CK-MB (CK-2) Troponin T C-Reactive Protein NT-Pro-B Natriuret Pep Total Protein Albumin Triglycerides TSH Arterial Blood Glucose Arterial Blood Ionized Calcium Urine pH Urine WBC (Auto) Urine Creatinine 11/10/20 11/10/20 11/10/20 05:43 11:47 17:56 WBC RBC Hgb Hct RDW Lymph % (Auto) Lynn % (Auto) Eos % (Auto) Lymph # (Auto) Lynn # (Auto) Eos # (Auto) Seg Neutrophils % Lymphocytes % (Manual) Monocytes % (Manual) Seg Neutrophils # Seg Neutrophils # Man Lymphocytes # (Manual) Monocytes # (Manual) D-Dimer Heparin Anti-Xa Level ABG pH POC ABG pCO2 POC ABG pO2 ABG pO2 ABG HCO3 ABG O2 Saturation ABG Base Excess ABG Hemoglobin ABG Oxyhemoglobin ABG Sodium ABG Potassium ABG Chloride ABG Glucose VBG pH Oxyhemoglobin Carboxyhemoglobin Sodium Potassium Chloride Carbon Dioxide BUN Creatinine Glucose POC Glucose 111 H 136 H 110 H Lactic Acid Calcium Phosphorus Magnesium Total Bilirubin AST ALT Ammonia Lactate Dehydrogenase Total Creatine Kinase CK-MB (CK-2) Troponin T C-Reactive Protein NT-Pro-B Natriuret Pep Total Protein Albumin Triglycerides TSH Arterial Blood Glucose Arterial Blood Ionized Calcium Urine pH Urine WBC (Auto) Urine Creatinine 11/10/20 11/11/20 11/11/20 23:34 03:11 05:22 WBC RBC Hgb Hct RDW Lymph % (Auto) Lynn % (Auto) Eos % (Auto) Lymph # (Auto) Lynn # (Auto) Eos # (Auto) Seg Neutrophils % Lymphocytes % (Manual) Monocytes % (Manual) Seg Neutrophils # Seg Neutrophils # Man Lymphocytes # (Manual) Monocytes # (Manual) D-Dimer Heparin Anti-Xa Level ABG pH POC ABG pCO2 64.5 H POC ABG pO2 ABG pO2 ABG HCO3 ABG O2 Saturation ABG Base Excess ABG Hemoglobin 9.7 L ABG Oxyhemoglobin ABG Sodium ABG Potassium 5.0 H ABG Chloride ABG Glucose 148 H VBG pH Oxyhemoglobin Carboxyhemoglobin Sodium Potassium Chloride Carbon Dioxide BUN Creatinine Glucose POC Glucose 134 H 132 H Lactic Acid Calcium Phosphorus Magnesium Total Bilirubin AST ALT Ammonia Lactate Dehydrogenase Total Creatine Kinase CK-MB (CK-2) Troponin T C-Reactive Protein NT-Pro-B Natriuret Pep Total Protein Albumin Triglycerides TSH Arterial Blood Glucose 148 H Arterial Blood Ionized Calcium Urine pH Urine WBC (Auto) Urine Creatinine 11/11/20 11/11/20 11/11/20 08:38 11:00 12:01 WBC RBC 2.79 L Hgb 8.4 L Hct 25.4 L RDW Lymph % (Auto) Lynn % (Auto) Eos % (Auto) Lymph # (Auto) Lynn # (Auto) Eos # (Auto) Seg Neutrophils % Lymphocytes % (Manual) Monocytes % (Manual) Seg Neutrophils # Seg Neutrophils # Man Lymphocytes # (Manual) Monocytes # (Manual) D-Dimer Heparin Anti-Xa Level ABG pH POC ABG pCO2 POC ABG pO2 ABG pO2 ABG HCO3 ABG O2 Saturation ABG Base Excess ABG Hemoglobin ABG Oxyhemoglobin ABG Sodium ABG Potassium ABG Chloride ABG Glucose VBG pH Oxyhemoglobin Carboxyhemoglobin Sodium 136 L Potassium Chloride 97.6 L Carbon Dioxide 35 H BUN 26 H Creatinine Glucose 133 H POC Glucose 142 H Lactic Acid Calcium 8.0 L Phosphorus Magnesium Total Bilirubin AST ALT Ammonia Lactate Dehydrogenase Total Creatine Kinase CK-MB (CK-2) Troponin T C-Reactive Protein NT-Pro-B Natriuret Pep Total Protein Albumin Triglycerides TSH Arterial Blood Glucose Arterial Blood Ionized Calcium Urine pH Urine WBC (Auto) Urine Creatinine 11/11/20 11/12/20 11/12/20 23:12 05:31 07:41 WBC RBC Hgb Hct RDW Lymph % (Auto) Lynn % (Auto) Eos % (Auto) Lymph # (Auto) Lynn # (Auto) Eos # (Auto) Seg Neutrophils % Lymphocytes % (Manual) Monocytes % (Manual) Seg Neutrophils # Seg Neutrophils # Man Lymphocytes # (Manual) Monocytes # (Manual) D-Dimer Heparin Anti-Xa Level ABG pH POC ABG pCO2 POC ABG pO2 ABG pO2 ABG HCO3 ABG O2 Saturation ABG Base Excess ABG Hemoglobin ABG Oxyhemoglobin ABG Sodium ABG Potassium ABG Chloride ABG Glucose VBG pH Oxyhemoglobin Carboxyhemoglobin Sodium Potassium Chloride Carbon Dioxide BUN Creatinine Glucose POC Glucose 127 H 117 H 137 H Lactic Acid Calcium Phosphorus Magnesium Total Bilirubin AST ALT Ammonia Lactate Dehydrogenase Total Creatine Kinase CK-MB (CK-2) Troponin T C-Reactive Protein NT-Pro-B Natriuret Pep Total Protein Albumin Triglycerides TSH Arterial Blood Glucose Arterial Blood Ionized Calcium Urine pH Urine WBC (Auto) Urine Creatinine 11/12/20 11/12/20 11/12/20 11:26 15:29 21:30 WBC RBC Hgb Hct RDW Lymph % (Auto) Lynn % (Auto) Eos % (Auto) Lymph # (Auto) Lynn # (Auto) Eos # (Auto) Seg Neutrophils % Lymphocytes % (Manual) Monocytes % (Manual) Seg Neutrophils # Seg Neutrophils # Man Lymphocytes # (Manual) Monocytes # (Manual) D-Dimer Heparin Anti-Xa Level ABG pH POC ABG pCO2 POC ABG pO2 ABG pO2 ABG HCO3 ABG O2 Saturation ABG Base Excess ABG Hemoglobin ABG Oxyhemoglobin ABG Sodium ABG Potassium ABG Chloride ABG Glucose VBG pH Oxyhemoglobin Carboxyhemoglobin Sodium Potassium Chloride Carbon Dioxide BUN Creatinine Glucose POC Glucose 130 H 146 H 123 H Lactic Acid Calcium Phosphorus Magnesium Total Bilirubin AST ALT Ammonia Lactate Dehydrogenase Total Creatine Kinase CK-MB (CK-2) Troponin T C-Reactive Protein NT-Pro-B Natriuret Pep Total Protein Albumin Triglycerides TSH Arterial Blood Glucose Arterial Blood Ionized Calcium Urine pH Urine WBC (Auto) Urine Creatinine 11/13/20 11/13/20 11/13/20 05:52 07:37 15:34 WBC RBC Hgb Hct RDW Lymph % (Auto) Lynn % (Auto) Eos % (Auto) Lymph # (Auto) Lynn # (Auto) Eos # (Auto) Seg Neutrophils % Lymphocytes % (Manual) Monocytes % (Manual) Seg Neutrophils # Seg Neutrophils # Man Lymphocytes # (Manual) Monocytes # (Manual) D-Dimer Heparin Anti-Xa Level ABG pH POC ABG pCO2 POC ABG pO2 ABG pO2 ABG HCO3 ABG O2 Saturation ABG Base Excess ABG Hemoglobin ABG Oxyhemoglobin ABG Sodium ABG Potassium ABG Chloride ABG Glucose VBG pH Oxyhemoglobin Carboxyhemoglobin Sodium Potassium Chloride Carbon Dioxide BUN Creatinine Glucose POC Glucose 142 H 109 H 127 H Lactic Acid Calcium Phosphorus Magnesium Total Bilirubin AST ALT Ammonia Lactate Dehydrogenase Total Creatine Kinase CK-MB (CK-2) Troponin T C-Reactive Protein NT-Pro-B Natriuret Pep Total Protein Albumin Triglycerides TSH Arterial Blood Glucose Arterial Blood Ionized Calcium Urine pH Urine WBC (Auto) Urine Creatinine 11/13/20 11/13/20 11/13/20 16:43 16:52 21:18 WBC RBC Hgb Hct RDW Lymph % (Auto) Lynn % (Auto) Eos % (Auto) Lymph # (Auto) Lynn # (Auto) Eos # (Auto) Seg Neutrophils % Lymphocytes % (Manual) Monocytes % (Manual) Seg Neutrophils # Seg Neutrophils # Man Lymphocytes # (Manual) Monocytes # (Manual) D-Dimer Heparin Anti-Xa Level ABG pH POC ABG pCO2 68.4 H POC ABG pO2 ABG pO2 ABG HCO3 ABG O2 Saturation ABG Base Excess ABG Hemoglobin 10.0 L ABG Oxyhemoglobin ABG Sodium ABG Potassium ABG Chloride ABG Glucose 133 H VBG pH Oxyhemoglobin Carboxyhemoglobin Sodium Potassium Chloride Carbon Dioxide BUN Creatinine Glucose POC Glucose 111 H 108 H Lactic Acid Calcium Phosphorus Magnesium Total Bilirubin AST ALT Ammonia Lactate Dehydrogenase Total Creatine Kinase CK-MB (CK-2) Troponin T C-Reactive Protein NT-Pro-B Natriuret Pep Total Protein Albumin Triglycerides TSH Arterial Blood Glucose 133 H Arterial Blood Ionized Calcium Urine pH Urine WBC (Auto) Urine Creatinine 11/14/20 11/14/20 11/14/20 12:07 18:16 23:21 WBC RBC Hgb Hct RDW Lymph % (Auto) Lynn % (Auto) Eos % (Auto) Lymph # (Auto) Lynn # (Auto) Eos # (Auto) Seg Neutrophils % Lymphocytes % (Manual) Monocytes % (Manual) Seg Neutrophils # Seg Neutrophils # Man Lymphocytes # (Manual) Monocytes # (Manual) D-Dimer Heparin Anti-Xa Level ABG pH POC ABG pCO2 POC ABG pO2 ABG pO2 ABG HCO3 ABG O2 Saturation ABG Base Excess ABG Hemoglobin ABG Oxyhemoglobin ABG Sodium ABG Potassium ABG Chloride ABG Glucose VBG pH Oxyhemoglobin Carboxyhemoglobin Sodium Potassium Chloride Carbon Dioxide BUN Creatinine Glucose POC Glucose 107 H 109 H 114 H Lactic Acid Calcium Phosphorus Magnesium Total Bilirubin AST ALT Ammonia Lactate Dehydrogenase Total Creatine Kinase CK-MB (CK-2) Troponin T C-Reactive Protein NT-Pro-B Natriuret Pep Total Protein Albumin Triglycerides TSH Arterial Blood Glucose Arterial Blood Ionized Calcium Urine pH Urine WBC (Auto) Urine Creatinine 11/15/20 11/15/20 11/15/20 11:14 16:11 23:57 WBC RBC Hgb Hct RDW Lymph % (Auto) Lynn % (Auto) Eos % (Auto) Lymph # (Auto) Lynn # (Auto) Eos # (Auto) Seg Neutrophils % Lymphocytes % (Manual) Monocytes % (Manual) Seg Neutrophils # Seg Neutrophils # Man Lymphocytes # (Manual) Monocytes # (Manual) D-Dimer Heparin Anti-Xa Level ABG pH POC ABG pCO2 POC ABG pO2 ABG pO2 ABG HCO3 ABG O2 Saturation ABG Base Excess ABG Hemoglobin ABG Oxyhemoglobin ABG Sodium ABG Potassium ABG Chloride ABG Glucose VBG pH Oxyhemoglobin Carboxyhemoglobin Sodium Potassium Chloride Carbon Dioxide BUN Creatinine Glucose POC Glucose 126 H 135 H 128 H Lactic Acid Calcium Phosphorus Magnesium Total Bilirubin AST ALT Ammonia Lactate Dehydrogenase Total Creatine Kinase CK-MB (CK-2) Troponin T C-Reactive Protein NT-Pro-B Natriuret Pep Total Protein Albumin Triglycerides TSH Arterial Blood Glucose Arterial Blood Ionized Calcium Urine pH Urine WBC (Auto) Urine Creatinine 11/16/20 11/16/20 11/16/20 12:16 17:15 23:34 WBC RBC Hgb Hct RDW Lymph % (Auto) Lynn % (Auto) Eos % (Auto) Lymph # (Auto) Lynn # (Auto) Eos # (Auto) Seg Neutrophils % Lymphocytes % (Manual) Monocytes % (Manual) Seg Neutrophils # Seg Neutrophils # Man Lymphocytes # (Manual) Monocytes # (Manual) D-Dimer Heparin Anti-Xa Level ABG pH POC ABG pCO2 POC ABG pO2 ABG pO2 ABG HCO3 ABG O2 Saturation ABG Base Excess ABG Hemoglobin ABG Oxyhemoglobin ABG Sodium ABG Potassium ABG Chloride ABG Glucose VBG pH Oxyhemoglobin Carboxyhemoglobin Sodium Potassium Chloride Carbon Dioxide BUN Creatinine Glucose POC Glucose 138 H 128 H 146 H Lactic Acid Calcium Phosphorus Magnesium Total Bilirubin AST ALT Ammonia Lactate Dehydrogenase Total Creatine Kinase CK-MB (CK-2) Troponin T C-Reactive Protein NT-Pro-B Natriuret Pep Total Protein Albumin Triglycerides TSH Arterial Blood Glucose Arterial Blood Ionized Calcium Urine pH Urine WBC (Auto) Urine Creatinine 11/17/20 11/17/20 11/17/20 03:48 03:48 05:43 WBC RBC 3.07 L Hgb 9.2 L Hct 28.0 L RDW 15.7 H Lymph % (Auto) Lynn % (Auto) 12.4 H Eos % (Auto) 6.9 H Lymph # (Auto) 0.9 L Lynn # (Auto) Eos # (Auto) 0.5 H Seg Neutrophils % Lymphocytes % (Manual) Monocytes % (Manual) Seg Neutrophils # Seg Neutrophils # Man Lymphocytes # (Manual) Monocytes # (Manual) D-Dimer Heparin Anti-Xa Level ABG pH POC ABG pCO2 POC ABG pO2 ABG pO2 ABG HCO3 ABG O2 Saturation ABG Base Excess ABG Hemoglobin ABG Oxyhemoglobin ABG Sodium ABG Potassium ABG Chloride ABG Glucose VBG pH Oxyhemoglobin Carboxyhemoglobin Sodium Potassium Chloride Carbon Dioxide 36 H BUN 24 H Creatinine Glucose 126 H POC Glucose 121 H Lactic Acid Calcium Phosphorus Magnesium Total Bilirubin AST ALT Ammonia Lactate Dehydrogenase Total Creatine Kinase CK-MB (CK-2) Troponin T C-Reactive Protein NT-Pro-B Natriuret Pep Total Protein Albumin 2.9 L Triglycerides TSH Arterial Blood Glucose Arterial Blood Ionized Calcium Urine pH Urine WBC (Auto) Urine Creatinine 11/17/20 11/17/20 11/17/20 12:24 17:45 23:46 WBC RBC Hgb Hct RDW Lymph % (Auto) Lynn % (Auto) Eos % (Auto) Lymph # (Auto) Lynn # (Auto) Eos # (Auto) Seg Neutrophils % Lymphocytes % (Manual) Monocytes % (Manual) Seg Neutrophils # Seg Neutrophils # Man Lymphocytes # (Manual) Monocytes # (Manual) D-Dimer Heparin Anti-Xa Level ABG pH POC ABG pCO2 POC ABG pO2 ABG pO2 ABG HCO3 ABG O2 Saturation ABG Base Excess ABG Hemoglobin ABG Oxyhemoglobin ABG Sodium ABG Potassium ABG Chloride ABG Glucose VBG pH Oxyhemoglobin Carboxyhemoglobin Sodium Potassium Chloride Carbon Dioxide BUN Creatinine Glucose POC Glucose 144 H 117 H 118 H Lactic Acid Calcium Phosphorus Magnesium Total Bilirubin AST ALT Ammonia Lactate Dehydrogenase Total Creatine Kinase CK-MB (CK-2) Troponin T C-Reactive Protein NT-Pro-B Natriuret Pep Total Protein Albumin Triglycerides TSH Arterial Blood Glucose Arterial Blood Ionized Calcium Urine pH Urine WBC (Auto) Urine Creatinine 11/18/20 11/18/20 11/18/20 05:20 05:20 05:34 WBC RBC 3.17 L Hgb 9.2 L Hct 28.8 L RDW 15.4 H Lymph % (Auto) 9.7 L Lynn % (Auto) 11.3 H Eos % (Auto) 5.3 H Lymph # (Auto) 0.7 L Lynn # (Auto) 0.9 H Eos # (Auto) Seg Neutrophils % 73.3 H Lymphocytes % (Manual) Monocytes % (Manual) Seg Neutrophils # Seg Neutrophils # Man Lymphocytes # (Manual) Monocytes # (Manual) D-Dimer Heparin Anti-Xa Level ABG pH POC ABG pCO2 POC ABG pO2 ABG pO2 ABG HCO3 ABG O2 Saturation ABG Base Excess ABG Hemoglobin ABG Oxyhemoglobin ABG Sodium ABG Potassium ABG Chloride ABG Glucose VBG pH Oxyhemoglobin Carboxyhemoglobin Sodium Potassium Chloride Carbon Dioxide 39 H BUN 22 H Creatinine Glucose 134 H POC Glucose 139 H Lactic Acid Calcium Phosphorus Magnesium Total Bilirubin AST ALT Ammonia Lactate Dehydrogenase Total Creatine Kinase CK-MB (CK-2) Troponin T C-Reactive Protein NT-Pro-B Natriuret Pep Total Protein Albumin 3.0 L Triglycerides TSH Arterial Blood Glucose Arterial Blood Ionized Calcium Urine pH Urine WBC (Auto) Urine Creatinine 11/18/20 11/18/20 11/18/20 11:20 13:44 16:46 WBC RBC Hgb Hct RDW Lymph % (Auto) Lynn % (Auto) Eos % (Auto) Lymph # (Auto) Lynn # (Auto) Eos # (Auto) Seg Neutrophils % Lymphocytes % (Manual) Monocytes % (Manual) Seg Neutrophils # Seg Neutrophils # Man Lymphocytes # (Manual) Monocytes # (Manual) D-Dimer Heparin Anti-Xa Level ABG pH POC ABG pCO2 POC ABG pO2 ABG pO2 ABG HCO3 ABG O2 Saturation ABG Base Excess ABG Hemoglobin ABG Oxyhemoglobin ABG Sodium ABG Potassium ABG Chloride ABG Glucose VBG pH Oxyhemoglobin Carboxyhemoglobin Sodium Potassium Chloride Carbon Dioxide BUN Creatinine Glucose POC Glucose 136 H 121 H Lactic Acid Calcium Phosphorus Magnesium Total Bilirubin AST ALT Ammonia Lactate Dehydrogenase Total Creatine Kinase CK-MB (CK-2) Troponin T C-Reactive Protein 4.40 H NT-Pro-B Natriuret Pep Total Protein Albumin Triglycerides TSH Arterial Blood Glucose Arterial Blood Ionized Calcium Urine pH Urine WBC (Auto) Urine Creatinine 11/18/20 11/19/20 11/19/20 23:47 04:18 04:18 WBC RBC 3.15 L Hgb 9.1 L Hct 28.7 L RDW 15.7 H Lymph % (Auto) Lynn % (Auto) 12.8 H Eos % (Auto) 5.0 H Lymph # (Auto) 1.1 L Lynn # (Auto) Eos # (Auto) Seg Neutrophils % Lymphocytes % (Manual) Monocytes % (Manual) Seg Neutrophils # Seg Neutrophils # Man Lymphocytes # (Manual) Monocytes # (Manual) D-Dimer Heparin Anti-Xa Level ABG pH POC ABG pCO2 POC ABG pO2 ABG pO2 ABG HCO3 ABG O2 Saturation ABG Base Excess ABG Hemoglobin ABG Oxyhemoglobin ABG Sodium ABG Potassium ABG Chloride ABG Glucose VBG pH Oxyhemoglobin Carboxyhemoglobin Sodium 146 H Potassium Chloride Carbon Dioxide 40 H BUN 23 H Creatinine Glucose 121 H POC Glucose 117 H Lactic Acid Calcium Phosphorus Magnesium Total Bilirubin AST ALT Ammonia Lactate Dehydrogenase Total Creatine Kinase CK-MB (CK-2) Troponin T C-Reactive Protein NT-Pro-B Natriuret Pep Total Protein Albumin 3.1 L Triglycerides TSH Arterial Blood Glucose Arterial Blood Ionized Calcium Urine pH Urine WBC (Auto) Urine Creatinine 11/19/20 11/19/20 11/19/20 05:41 10:31 12:00 WBC RBC Hgb Hct RDW Lymph % (Auto) Lynn % (Auto) Eos % (Auto) Lymph # (Auto) Lynn # (Auto) Eos # (Auto) Seg Neutrophils % Lymphocytes % (Manual) Monocytes % (Manual) Seg Neutrophils # Seg Neutrophils # Man Lymphocytes # (Manual) Monocytes # (Manual) D-Dimer Heparin Anti-Xa Level ABG pH POC ABG pCO2 POC ABG pO2 ABG pO2 ABG HCO3 ABG O2 Saturation ABG Base Excess ABG Hemoglobin ABG Oxyhemoglobin ABG Sodium ABG Potassium ABG Chloride ABG Glucose VBG pH Oxyhemoglobin Carboxyhemoglobin Sodium Potassium Chloride Carbon Dioxide BUN Creatinine Glucose POC Glucose 147 H 139 H 130 H Lactic Acid Calcium Phosphorus Magnesium Total Bilirubin AST ALT Ammonia Lactate Dehydrogenase Total Creatine Kinase CK-MB (CK-2) Troponin T C-Reactive Protein NT-Pro-B Natriuret Pep Total Protein Albumin Triglycerides TSH Arterial Blood Glucose Arterial Blood Ionized Calcium Urine pH Urine WBC (Auto) Urine Creatinine 11/19/20 11/19/20 11/20/20 17:40 23:39 04:55 WBC RBC Hgb Hct RDW Lymph % (Auto) Lynn % (Auto) Eos % (Auto) Lymph # (Auto) Lynn # (Auto) Eos # (Auto) Seg Neutrophils % Lymphocytes % (Manual) Monocytes % (Manual) Seg Neutrophils # Seg Neutrophils # Man Lymphocytes # (Manual) Monocytes # (Manual) D-Dimer Heparin Anti-Xa Level ABG pH POC ABG pCO2 POC ABG pO2 ABG pO2 ABG HCO3 ABG O2 Saturation ABG Base Excess ABG Hemoglobin ABG Oxyhemoglobin ABG Sodium ABG Potassium ABG Chloride ABG Glucose VBG pH Oxyhemoglobin Carboxyhemoglobin Sodium Potassium Chloride Carbon Dioxide BUN Creatinine Glucose POC Glucose 165 H 133 H 124 H Lactic Acid Calcium Phosphorus Magnesium Total Bilirubin AST ALT Ammonia Lactate Dehydrogenase Total Creatine Kinase CK-MB (CK-2) Troponin T C-Reactive Protein NT-Pro-B Natriuret Pep Total Protein Albumin Triglycerides TSH Arterial Blood Glucose Arterial Blood Ionized Calcium Urine pH Urine WBC (Auto) Urine Creatinine 11/20/20 11/20/20 11/20/20 07:30 07:30 11:46 WBC RBC 2.93 L Hgb 8.7 L Hct 27.0 L RDW 15.8 H Lymph % (Auto) 11.6 L Lynn % (Auto) 10.0 H Eos % (Auto) 4.4 H Lymph # (Auto) 0.9 L Lynn # (Auto) Eos # (Auto) Seg Neutrophils % 73.4 H Lymphocytes % (Manual) Monocytes % (Manual) Seg Neutrophils # Seg Neutrophils # Man Lymphocytes # (Manual) Monocytes # (Manual) D-Dimer Heparin Anti-Xa Level ABG pH POC ABG pCO2 POC ABG pO2 ABG pO2 ABG HCO3 ABG O2 Saturation ABG Base Excess ABG Hemoglobin ABG Oxyhemoglobin ABG Sodium ABG Potassium ABG Chloride ABG Glucose VBG pH Oxyhemoglobin Carboxyhemoglobin Sodium Potassium Chloride Carbon Dioxide 41 H* BUN 26 H Creatinine Glucose 139 H POC Glucose 141 H Lactic Acid Calcium Phosphorus Magnesium Total Bilirubin AST ALT Ammonia Lactate Dehydrogenase Total Creatine Kinase CK-MB (CK-2) Troponin T C-Reactive Protein NT-Pro-B Natriuret Pep Total Protein Albumin 2.8 L Triglycerides TSH Arterial Blood Glucose Arterial Blood Ionized Calcium Urine pH Urine WBC (Auto) Urine Creatinine 11/20/20 11/21/20 11/21/20 17:22 00:19 04:00 WBC RBC 2.84 L Hgb 8.3 L Hct 26.1 L RDW 15.8 H Lymph % (Auto) Lynn % (Auto) 11.2 H Eos % (Auto) Lymph # (Auto) 1.0 L Lynn # (Auto) Eos # (Auto) Seg Neutrophils % Lymphocytes % (Manual) Monocytes % (Manual) Seg Neutrophils # Seg Neutrophils # Man Lymphocytes # (Manual) Monocytes # (Manual) D-Dimer Heparin Anti-Xa Level ABG pH POC ABG pCO2 POC ABG pO2 ABG pO2 ABG HCO3 ABG O2 Saturation ABG Base Excess ABG Hemoglobin ABG Oxyhemoglobin ABG Sodium ABG Potassium ABG Chloride ABG Glucose VBG pH Oxyhemoglobin Carboxyhemoglobin Sodium Potassium Chloride Carbon Dioxide BUN Creatinine Glucose POC Glucose 126 H 126 H Lactic Acid Calcium Phosphorus Magnesium Total Bilirubin AST ALT Ammonia Lactate Dehydrogenase Total Creatine Kinase CK-MB (CK-2) Troponin T C-Reactive Protein NT-Pro-B Natriuret Pep Total Protein Albumin Triglycerides TSH Arterial Blood Glucose Arterial Blood Ionized Calcium Urine pH Urine WBC (Auto) Urine Creatinine 11/21/20 11/21/20 04:00 11:18 WBC RBC Hgb Hct RDW Lymph % (Auto) Lynn % (Auto) Eos % (Auto) Lymph # (Auto) Lynn # (Auto) Eos # (Auto) Seg Neutrophils % Lymphocytes % (Manual) Monocytes % (Manual) Seg Neutrophils # Seg Neutrophils # Man Lymphocytes # (Manual) Monocytes # (Manual) D-Dimer Heparin Anti-Xa Level ABG pH POC ABG pCO2 POC ABG pO2 ABG pO2 ABG HCO3 ABG O2 Saturation ABG Base Excess ABG Hemoglobin ABG Oxyhemoglobin ABG Sodium ABG Potassium ABG Chloride ABG Glucose VBG pH Oxyhemoglobin Carboxyhemoglobin Sodium Potassium Chloride Carbon Dioxide 40 H BUN 27 H Creatinine Glucose 142 H POC Glucose 141 H Lactic Acid Calcium Phosphorus Magnesium Total Bilirubin AST ALT Ammonia Lactate Dehydrogenase Total Creatine Kinase CK-MB (CK-2) Troponin T C-Reactive Protein NT-Pro-B Natriuret Pep Total Protein Albumin 3.1 L Triglycerides TSH Arterial Blood Glucose Arterial Blood Ionized Calcium Urine pH Urine WBC (Auto) Urine Creatinine Chest x-ray: report reviewed, image reviewed Additional Studies: CHEST 1 VIEW 11/19/2020 11:07 AM INDICATION / CLINICAL INFORMATION: hypoxia. COMPARISON: 11/17/2020 FINDINGS: SUPPORT DEVICES: Stable, satisfactory device positioning. HEART / MEDIASTINUM: Stable. LUNGS / PLEURA: Stable mild pulmonary vascular congestion. No pneumothorax. ADDITIONAL FINDINGS: No significant additional findings. IMPRESSION: 1. No adverse change from the prior exam. Allied health notes reviewed: nursing
[2020-11-21] MEDS: fentaNYL 25 MCG/HR PATCH 72HR TD SCH (18:21)
[2020-11-21] MEDS: QUEtiapine 200 MG TAB PO SCH (22:06)
[2020-11-22] MEDS: cloNIDine 0.2 MG TAB PO SCH ×2 (02:09→12:53)
[2020-11-22] MEDS: hydrALAZINE 100 MG TAB PO SCH ×2 (05:13→13:30)
[2020-11-22] MEDS: GLYCOPYRROLATE 1 MG TAB PO SCH ×2 (05:13→13:30)
[2020-11-22 05:23] LABS: Basophils # (Auto) 0.1 K/mm3 (0.0-0.1); Basophils % (Auto) 1.2 % (0.0-1.8); Eosinophils # (Auto) 0.4 K/mm3 (0.0-0.4); Eosinophils % (Auto) 5.3 % (0.0-4.3); Hemoglobin 8.7 gm/dl (11.8-15.2); Lymphocytes # (Auto) 1.3 K/mm3 (1.2-5.4); Lymphocytes % (Auto) 19.1 % (13.4-35.0); Mean Corpuscular HGB Conc 32 % (32-34); Mean Corpuscular Volume 91 fl (84-94); Monocytes # (Auto) 0.8 K/mm3 (0.0-0.8); Monocytes % (Auto) 11.5 % (0.0-7.3); Platelet Count 219 K/mm3 (140-440); Red Blood Count 2.96 M/mm3 (3.65-5.03); Red Cell Distribution Width 15.5 % (13.2-15.2)
[2020-11-22 05:42] LABS: Alanine Aminotransferase 11 units/L (7-56); BUN/Creatinine Ratio 26; Blood Urea Nitrogen 26 mg/dL (9-20); Calcium 8.7 mg/dL (8.4-10.2); Hemolysis Index 7
[2020-11-22] MEDS: LORazepam 2 MG/ML VIAL IV PRN ×3 (05:44→16:36)
[2020-11-22] MEDS: hydrALAZINE 20 MG/1 ML INJ IV PRN (06:27)
[2020-11-22] MEDS: ACETAMINOPHEN 325 MG TAB PO PRN (07:40)
[2020-11-22] MEDS: QUEtiapine 25 MG TAB PO SCH (10:30)
[2020-11-22] MEDS: METOPROLOL TARTRATE 50 MG TAB PO SCH ×2 (10:30→13:30)
[2020-11-22] MEDS: LANSOPRAZOLE 30 MG SOLUTAB FEEDTUBE SCH (10:30)
[2020-11-22] MEDS: QUEtiapine 100 MG TAB PO SCH (10:30)
[2020-11-22] MEDS: MINOXIDIL 2.5 MG TAB PO SCH (10:30)
[2020-11-22] MEDS: levETIRAcetam 500 MG/5 ML ORAL LIQD PO SCH (10:30)
[2020-11-22] MEDS: HEPARIN 5,000 UNIT/1 ML VIAL SUB-Q SCH (10:30)
[2020-11-22] MEDS: POLYETHYLENE GLYCOL 3350 17 GM POWDER PO SCH (10:30)
[2020-11-22] MEDS: FUROSEMIDE 20 MG TAB PO SCH (10:31)
[2020-11-22] MEDS: DOCUSATE SODIUM 100 MG/10 ML ORAL LIQD PO SCH (10:31)
[2020-11-22] MEDS: amLODIPine 5 MG TAB PO SCH (10:31)
[2020-11-22] MEDS: SCOPOLAMINE TRANSDERMAL PATCH 72 HR TD SCH (10:31)
[2020-11-22] MEDS: HYDROmorphone 1 MG/1 ML INJ IV PRN ×2 (10:42→14:13)
--- NOTE | 2020-11-22 10:56 | Progress Note ---
Assessment and Plan 55-year-old -[place] male with history of hypertension and asthma and obesity who became unresponsive after COVID-19 vaccination. Patient was brought to the ED and coded twice. Patient resuscitated and placed on mechanical ventilation. Patient subsequently had tracheostomy. Patient weaned from ventilator. Patient presently on T-tube. Patient awake and not following commands.. Presently resting on T-tube. FiO2 28%. O2 saturation running 95%. No acute respiratory distress. Patient afebrile. No leukocytosis. Chest X-ray done 11/12/20. Reported mild, diffuse disease, suggesting pulmonary edema. Chest X-ray done 11/19/20. Reported No adverse change from the prior exam. Patient is on s/c heparin, prevacid, and albuterol, vancomycin. Patient was seen in [facility]. I spent critical care time of 32 minutes examining the patient, reviewing the chart, reviewing the labs and chest x-ray, talking to respiratory therapy and nursing staff, and work-up plan of treatment. - Patient Problems (1) Acute respiratory failure with hypoxia and hypercarbia Status: Acute Plan to address problem: Patient presently on T-tube. FiO2 28%. O2 saturation 95%. Continue albuterol aerosol treatments. Respiratory suctioning as needed. Continue s/c heparin. Continue prevacid. (2) Bilateral pneumonia Status: Acute Plan to address problem: Repeat Chest x-ray on 11/19/20 reported No adverse change from the prior exam. Patient afebrile, no leukocytosis. Patient on vancomycin. (3) Cardiopulmonary arrest with successful resuscitation Status: Acute Plan to address problem: Patient successfully resuscitated. Presently resting on T-tube. (4) MOE (acute kidney injury) Status: Acute Plan to address problem: Management per Neprology. (5) Accelerated hypertension Status: Acute Plan to address problem: Management per primary care. (6) Acute heart failure with preserved ejection fraction (HFpEF) Status: Acute Plan to address problem: Management per cardiology. (7) Atrial fibrillation and flutter Status: Acute Plan to address problem: Management per cardiology. (8) GI bleed Status: Acute Plan to address problem: Management per GI. (9) Hypotension Status: Acute Plan to address problem: Improved. Today's BP is 177/87. Management as per primary care. (10) NSTEMI (non-ST elevated myocardial infarction) Status: Acute Plan to address problem: Management per cardiology. (11) Seizure Status: Acute Plan to address problem: Management per primary care and Neurology. Subjective Date of service: 11/22/20 Principal diagnosis: Cardiac arrest; Septic Shock; Ac. hypoxemic & hypercapnic resp failure; MOE Interval history: 55-year-old -[place] male with history of hypertension and asthma and obesity who became unresponsive after COVID-19 vaccination. Patient was brought to the ED and coded twice. Patient resuscitated and placed on mechanical ventilation. Patient subsequently had tracheostomy. Patient weaned from ventilator. Patient presently on T-tube. Patient awake and not following commands.. Presently resting on T-tube. FiO2 28%. O2 saturation running 95%. No acute respiratory distress. Patient afebrile. No leukocytosis. Chest X-ray done 11/12/20. Reported mild, diffuse disease, suggesting pulmonary edema. Chest X-ray done 11/19/20. Reported No adverse change from the prior exam. Patient is on s/c heparin, prevacid, and albuterol, vancomycin. Objective Vital Signs - 12hr 11/21/20 11/21/20 11/21/20 23:00 23:44 23:47 Temperature 99.8 F H Pulse Rate 74 72 Pulse Rate [ From Monitor] Respiratory 28 H 27 H Rate Blood Pressure 128/65 128/65 O2 Sat by Pulse 97 95 Oximetry O2 Sat by Pulse Oximetry [ Assessment] 11/22/20 11/22/20 11/22/20 00:00 01:00 02:00 Temperature Pulse Rate 72 72 70 Pulse Rate [ 72 From Monitor] Respiratory 25 H 24 24 Rate Blood Pressure 129/64 139/68 149/80 O2 Sat by Pulse 97 97 98 Oximetry O2 Sat by Pulse Oximetry [ Assessment] 11/22/20 11/22/20 11/22/20 02:09 03:00 04:00 Temperature 99.4 F Pulse Rate 70 71 70 Pulse Rate [ 71 From Monitor] Respiratory 28 H 24 Rate Blood Pressure 149/80 142/73 155/78 O2 Sat by Pulse 97 97 Oximetry O2 Sat by Pulse Oximetry [ Assessment] 11/22/20 11/22/20 11/22/20 05:01 06:00 06:27 Temperature Pulse Rate 77 81 82 Pulse Rate [ From Monitor] Respiratory 26 H 27 H Rate Blood Pressure 215/108 172/84 175/84 O2 Sat by Pulse 97 98 Oximetry O2 Sat by Pulse Oximetry [ Assessment] 11/22/20 11/22/20 11/22/20 07:00 07:31 08:00 Temperature Pulse Rate 86 87 Pulse Rate [ From Monitor] Respiratory 19 7 L Rate Blood Pressure 167/78 153/71 O2 Sat by Pulse 98 97 94 Oximetry O2 Sat by Pulse 95 Oximetry [ Assessment] 11/22/20 11/22/20 09:00 10:00 Temperature Pulse Rate 83 82 Pulse Rate [ From Monitor] Respiratory 28 H 25 H Rate Blood Pressure 143/69 137/77 O2 Sat by Pulse 97 97 Oximetry O2 Sat by Pulse Oximetry [ Assessment] Constitutional: no acute distress, alert, other (Awake. Not following commands.) Eyes: non-icteric ENT: oropharynx moist, oropharyngeal exudate pre (improved), other (midline tracheostomy) Neck: supple, no lymphadenopathy, no JVD Effort: mildly labored Ascultation: Bilateral: diminished breath sounds, rhonchi (scant) Percussion: Bilateral: not dull Cardiovascular: regular rate and rhythm, other (S1,S2) Gastrointestinal: normoactive bowel sounds, soft, non-tender, non-distended (protuberant) Integumentary: normal Extremities: no cyanosis, no edema, pulses normal, no ischemia or petechiae Neurologic: pupils equal and round, unable to assess, other (encephalopathic) Psychiatric: other (unable to assess re: AMS) CBC and BMP: 11/22/20 04:55 11/22/20 04:55 ABG, PT/INR, D-dimer: ABG ABG pH 7.374 (7.320-7.450) 11/13/20 16:43 POC ABG pCO2 68.4 mmHg (32.0-48.0) H 11/13/20 16:43 ABG pCO2 55.5 mm Hg 10/16/20 05:10 POC ABG pO2 101.9 mmHg (83-108) 11/13/20 16:43 ABG pO2 104.5 mm Hg (80.0-90.0) H 10/16/20 05:10 POC ABG HCO3 39.0 11/13/20 16:43 ABG O2 Saturation 97.8 (0-100) 11/13/20 16:43 PT/INR, D-dimer PT 13.5 Sec. (12.2-14.9) 10/28/20 07:00 INR 1.05 (0.87-1.13) 10/28/20 07:00 D-Dimer 679.5 ng/mlDDU (0-234) H 10/10/20 10:48 Abnormal lab findings: Abnormal Labs 10/10/20 10/10/20 10/10/20 10:46 10:46 10:46 WBC RBC Hgb Hct RDW Lymph % (Auto) Bibb % (Auto) Eos % (Auto) Lymph # (Auto) Bibb # (Auto) Eos # (Auto) Seg Neutrophils % Lymphocytes % (Manual) Monocytes % (Manual) Seg Neutrophils # Seg Neutrophils # Man Lymphocytes # (Manual) Monocytes # (Manual) D-Dimer Heparin Anti-Xa Level ABG pH POC ABG pCO2 POC ABG pO2 ABG pO2 ABG HCO3 ABG O2 Saturation ABG Base Excess ABG Hemoglobin ABG Oxyhemoglobin ABG Sodium ABG Potassium ABG Chloride ABG Glucose VBG pH Oxyhemoglobin Carboxyhemoglobin Sodium Potassium Chloride Carbon Dioxide BUN Creatinine Glucose POC Glucose Lactic Acid 13.60 H* Calcium Phosphorus Magnesium Total Bilirubin AST ALT Ammonia 214.0 H Lactate Dehydrogenase Total Creatine Kinase CK-MB (CK-2) Troponin T C-Reactive Protein NT-Pro-B Natriuret Pep Total Protein Albumin Triglycerides TSH 6.260 H Arterial Blood Glucose Arterial Blood Ionized Calcium Urine pH Urine WBC (Auto) Urine Creatinine 10/10/20 10/10/20 10/10/20 10:46 10:48 10:48 WBC RBC 5.28 H Hgb 15.5 H Hct 48.8 H RDW Lymph % (Auto) Bibb % (Auto) Eos % (Auto) Lymph # (Auto) Bibb # (Auto) Eos # (Auto) Seg Neutrophils % Lymphocytes % (Manual) 42.0 H Monocytes % (Manual) Seg Neutrophils # Seg Neutrophils # Man Lymphocytes # (Manual) Monocytes # (Manual) D-Dimer Heparin Anti-Xa Level ABG pH POC ABG pCO2 POC ABG pO2 ABG pO2 ABG HCO3 ABG O2 Saturation ABG Base Excess ABG Hemoglobin ABG Oxyhemoglobin ABG Sodium ABG Potassium ABG Chloride ABG Glucose VBG pH Oxyhemoglobin Carboxyhemoglobin Sodium Potassium 3.3 L Chloride 91.2 L Carbon Dioxide BUN Creatinine 1.8 H Glucose 231 H POC Glucose Lactic Acid Calcium Phosphorus Magnesium Total Bilirubin AST 60 H ALT 57 H Ammonia Lactate Dehydrogenase Total Creatine Kinase CK-MB (CK-2) Troponin T C-Reactive Protein NT-Pro-B Natriuret Pep 1187 H Total Protein 9.0 H Albumin Triglycerides TSH Arterial Blood Glucose Arterial Blood Ionized Calcium Urine pH Urine WBC (Auto) Urine Creatinine 10/10/20 10/10/20 10/10/20 10:48 10:48 10:48 WBC RBC Hgb Hct RDW Lymph % (Auto) Bibb % (Auto) Eos % (Auto) Lymph # (Auto) Bibb # (Auto) Eos # (Auto) Seg Neutrophils % Lymphocytes % (Manual) Monocytes % (Manual) Seg Neutrophils # Seg Neutrophils # Man Lymphocytes # (Manual) Monocytes # (Manual) D-Dimer 679.5 H Heparin Anti-Xa Level ABG pH POC ABG pCO2 POC ABG pO2 ABG pO2 ABG HCO3 ABG O2 Saturation ABG Base Excess ABG Hemoglobin ABG Oxyhemoglobin ABG Sodium ABG Potassium ABG Chloride ABG Glucose VBG pH 6.870 L* Oxyhemoglobin Carboxyhemoglobin Sodium Potassium Chloride Carbon Dioxide BUN Creatinine Glucose POC Glucose Lactic Acid Calcium Phosphorus Magnesium Total Bilirubin AST ALT Ammonia Lactate Dehydrogenase 386 H Total Creatine Kinase CK-MB (CK-2) Troponin T C-Reactive Protein NT-Pro-B Natriuret Pep Total Protein Albumin Triglycerides TSH Arterial Blood Glucose Arterial Blood Ionized Calcium Urine pH Urine WBC (Auto) Urine Creatinine 10/10/20 10/10/20 10/10/20 14:10 14:20 15:50 WBC RBC Hgb Hct RDW Lymph % (Auto) Bibb % (Auto) Eos % (Auto) Lymph # (Auto) Bibb # (Auto) Eos # (Auto) Seg Neutrophils % Lymphocytes % (Manual) Monocytes % (Manual) Seg Neutrophils # Seg Neutrophils # Man Lymphocytes # (Manual) Monocytes # (Manual) D-Dimer Heparin Anti-Xa Level ABG pH 7.175 L 7.247 L POC ABG pCO2 85.0 H POC ABG pO2 43.7 L ABG pO2 60.3 L ABG HCO3 32.0 H ABG O2 Saturation 86.1 L ABG Base Excess ABG Hemoglobin ABG Oxyhemoglobin 67.7 L ABG Sodium ABG Potassium ABG Chloride ABG Glucose 247 H VBG pH Oxyhemoglobin 84.4 L Carboxyhemoglobin Sodium Potassium Chloride Carbon Dioxide BUN Creatinine Glucose POC Glucose Lactic Acid 4.00 H* Calcium Phosphorus Magnesium Total Bilirubin AST ALT Ammonia Lactate Dehydrogenase Total Creatine Kinase CK-MB (CK-2) Troponin T C-Reactive Protein NT-Pro-B Natriuret Pep Total Protein Albumin Triglycerides TSH Arterial Blood Glucose 247 H Arterial Blood Ionized Calcium 4.4 L Urine pH Urine WBC (Auto) Urine Creatinine 10/10/20 10/10/20 10/10/20 15:50 16:22 18:18 WBC RBC Hgb Hct RDW Lymph % (Auto) Bibb % (Auto) Eos % (Auto) Lymph # (Auto) Bibb # (Auto) Eos # (Auto) Seg Neutrophils % Lymphocytes % (Manual) Monocytes % (Manual) Seg Neutrophils # Seg Neutrophils # Man Lymphocytes # (Manual) Monocytes # (Manual) D-Dimer Heparin Anti-Xa Level ABG pH 7.171 L POC ABG pCO2 96.6 H POC ABG pO2 55.3 L ABG pO2 ABG HCO3 ABG O2 Saturation ABG Base Excess ABG Hemoglobin ABG Oxyhemoglobin 81.4 L ABG Sodium ABG Potassium ABG Chloride ABG Glucose 115 H VBG pH Oxyhemoglobin Carboxyhemoglobin Sodium Potassium Chloride Carbon Dioxide BUN Creatinine Glucose POC Glucose 132 H Lactic Acid Calcium Phosphorus Magnesium Total Bilirubin AST ALT Ammonia Lactate Dehydrogenase Total Creatine Kinase 1192 H CK-MB (CK-2) 21.7 H Troponin T 0.377 H* D C-Reactive Protein NT-Pro-B Natriuret Pep Total Protein Albumin Triglycerides TSH Arterial Blood Glucose 115 H Arterial Blood Ionized Calcium Urine pH Urine WBC (Auto) Urine Creatinine 10/10/20 10/10/20 10/10/20 18:18 18:18 22:49 WBC 23.0 H RBC 5.12 H Hgb Hct RDW Lymph % (Auto) Bibb % (Auto) Eos % (Auto) Lymph # (Auto) Bibb # (Auto) Eos # (Auto) Seg Neutrophils % Lymphocytes % (Manual) 4.0 L Monocytes % (Manual) 9.0 H Seg Neutrophils # Seg Neutrophils # Man 13.8 H Lymphocytes # (Manual) 0.9 L Monocytes # (Manual) 2.1 H D-Dimer Heparin Anti-Xa Level ABG pH POC ABG pCO2 POC ABG pO2 ABG pO2 ABG HCO3 ABG O2 Saturation ABG Base Excess ABG Hemoglobin ABG Oxyhemoglobin ABG Sodium ABG Potassium ABG Chloride ABG Glucose VBG pH Oxyhemoglobin Carboxyhemoglobin Sodium 146 H Potassium Chloride Carbon Dioxide 34 H D BUN 27 H Creatinine 2.7 H Glucose 102 H POC Glucose Lactic Acid Calcium Phosphorus Magnesium Total Bilirubin AST 90 H ALT 66 H Ammonia Lactate Dehydrogenase Total Creatine Kinase CK-MB (CK-2) Troponin T 0.273 H* D C-Reactive Protein NT-Pro-B Natriuret Pep Total Protein Albumin Triglycerides TSH Arterial Blood Glucose Arterial Blood Ionized Calcium Urine pH Urine WBC (Auto) Urine Creatinine 10/11/20 10/11/20 10/11/20 02:00 02:00 02:00 WBC 17.3 H RBC Hgb Hct RDW Lymph % (Auto) 3.9 L Bibb % (Auto) Eos % (Auto) Lymph # (Auto) 0.7 L Bibb # (Auto) Eos # (Auto) Seg Neutrophils % 93.0 H Lymphocytes % (Manual) Monocytes % (Manual) Seg Neutrophils # 16.1 H Seg Neutrophils # Man Lymphocytes # (Manual) Monocytes # (Manual) D-Dimer Heparin Anti-Xa Level ABG pH POC ABG pCO2 POC ABG pO2 ABG pO2 ABG HCO3 ABG O2 Saturation ABG Base Excess ABG Hemoglobin ABG Oxyhemoglobin ABG Sodium ABG Potassium ABG Chloride ABG Glucose VBG pH Oxyhemoglobin Carboxyhemoglobin Sodium 149 H Potassium 3.3 L Chloride 95.3 L Carbon Dioxide 37 H BUN 29 H Creatinine 2.6 H Glucose POC Glucose Lactic Acid Calcium Phosphorus Magnesium Total Bilirubin AST 80 H ALT 59 H Ammonia Lactate Dehydrogenase Total Creatine Kinase CK-MB (CK-2) Troponin T 0.201 H* D C-Reactive Protein NT-Pro-B Natriuret Pep Total Protein Albumin 3.6 L Triglycerides TSH Arterial Blood Glucose Arterial Blood Ionized Calcium Urine pH Urine WBC (Auto) Urine Creatinine 10/11/20 10/11/20 10/11/20 03:51 08:35 11:15 WBC RBC Hgb Hct RDW Lymph % (Auto) Bibb % (Auto) Eos % (Auto) Lymph # (Auto) Bibb # (Auto) Eos # (Auto) Seg Neutrophils % Lymphocytes % (Manual) Monocytes % (Manual) Seg Neutrophils # Seg Neutrophils # Man Lymphocytes # (Manual) Monocytes # (Manual) D-Dimer Heparin Anti-Xa Level 0.22 L ABG pH 7.491 H POC ABG pCO2 57.6 H POC ABG pO2 ABG pO2 ABG HCO3 ABG O2 Saturation ABG Base Excess ABG Hemoglobin ABG Oxyhemoglobin ABG Sodium 150.0 H ABG Potassium 3.1 L ABG Chloride 96.0 L ABG Glucose 122 H VBG pH Oxyhemoglobin Carboxyhemoglobin Sodium Potassium Chloride Carbon Dioxide BUN Creatinine Glucose POC Glucose 151 H Lactic Acid Calcium Phosphorus Magnesium Total Bilirubin AST ALT Ammonia Lactate Dehydrogenase Total Creatine Kinase CK-MB (CK-2) Troponin T C-Reactive Protein NT-Pro-B Natriuret Pep Total Protein Albumin Triglycerides TSH Arterial Blood Glucose 122 H Arterial Blood Ionized Calcium 3.9 L Urine pH Urine WBC (Auto) Urine Creatinine 10/11/20 10/11/20 10/11/20 13:30 13:30 13:30 WBC 15.0 H RBC Hgb Hct RDW Lymph % (Auto) Bibb % (Auto) Eos % (Auto) Lymph # (Auto) Bibb # (Auto) Eos # (Auto) Seg Neutrophils % Lymphocytes % (Manual) Monocytes % (Manual) Seg Neutrophils # Seg Neutrophils # Man Lymphocytes # (Manual) Monocytes # (Manual) D-Dimer Heparin Anti-Xa Level ABG pH POC ABG pCO2 POC ABG pO2 ABG pO2 ABG HCO3 ABG O2 Saturation ABG Base Excess ABG Hemoglobin ABG Oxyhemoglobin ABG Sodium ABG Potassium ABG Chloride ABG Glucose VBG pH Oxyhemoglobin Carboxyhemoglobin Sodium Potassium Chloride Carbon Dioxide BUN Creatinine Glucose POC Glucose Lactic Acid Calcium Phosphorus Magnesium Total Bilirubin AST ALT Ammonia Lactate Dehydrogenase Total Creatine Kinase CK-MB (CK-2) Troponin T C-Reactive Protein NT-Pro-B Natriuret Pep Total Protein Albumin Triglycerides TSH Arterial Blood Glucose Arterial Blood Ionized Calcium Urine pH 9.0 H Urine WBC (Auto) 18.0 H Urine Creatinine 80.5 H 10/11/20 10/11/20 10/12/20 17:17 23:14 03:53 WBC RBC Hgb Hct RDW Lymph % (Auto) Bibb % (Auto) Eos % (Auto) Lymph # (Auto) Bibb # (Auto) Eos # (Auto) Seg Neutrophils % Lymphocytes % (Manual) Monocytes % (Manual) Seg Neutrophils # Seg Neutrophils # Man Lymphocytes # (Manual) Monocytes # (Manual) D-Dimer Heparin Anti-Xa Level ABG pH 7.545 H POC ABG pCO2 54.6 H POC ABG pO2 231.9 H ABG pO2 ABG HCO3 ABG O2 Saturation ABG Base Excess ABG Hemoglobin ABG Oxyhemoglobin 98.5 H ABG Sodium 150.5 H ABG Potassium 3.2 L ABG Chloride 96.0 L ABG Glucose 148 H VBG pH Oxyhemoglobin Carboxyhemoglobin Sodium Potassium Chloride Carbon Dioxide BUN Creatinine Glucose POC Glucose 121 H 135 H Lactic Acid Calcium Phosphorus Magnesium Total Bilirubin AST ALT Ammonia Lactate Dehydrogenase Total Creatine Kinase CK-MB (CK-2) Troponin T C-Reactive Protein NT-Pro-B Natriuret Pep Total Protein Albumin Triglycerides TSH Arterial Blood Glucose 148 H Arterial Blood Ionized Calcium 3.8 L Urine pH Urine WBC (Auto) Urine Creatinine 10/12/20 10/12/20 10/12/20 04:00 05:10 05:12 WBC 14.3 H RBC Hgb 11.6 L Hct 35.2 L RDW Lymph % (Auto) Bibb % (Auto) Eos % (Auto) Lymph # (Auto) Bibb # (Auto) Eos # (Auto) Seg Neutrophils % Lymphocytes % (Manual) Monocytes % (Manual) Seg Neutrophils # Seg Neutrophils # Man Lymphocytes # (Manual) Monocytes # (Manual) D-Dimer Heparin Anti-Xa Level ABG pH POC ABG pCO2 POC ABG pO2 ABG pO2 ABG HCO3 ABG O2 Saturation ABG Base Excess ABG Hemoglobin ABG Oxyhemoglobin ABG Sodium ABG Potassium ABG Chloride ABG Glucose VBG pH Oxyhemoglobin Carboxyhemoglobin Sodium 155 H Potassium 3.3 L Chloride 97.9 L Carbon Dioxide 47 H* D BUN 50 H Creatinine 3.4 H Glucose 146 H POC Glucose 137 H Lactic Acid Calcium 8.0 L Phosphorus Magnesium Total Bilirubin AST ALT Ammonia Lactate Dehydrogenase Total Creatine Kinase CK-MB (CK-2) Troponin T 0.125 H* D C-Reactive Protein NT-Pro-B Natriuret Pep Total Protein Albumin Triglycerides TSH Arterial Blood Glucose Arterial Blood Ionized Calcium Urine pH Urine WBC (Auto) Urine Creatinine 10/12/20 10/12/20 10/12/20 11:39 16:01 19:49 WBC RBC Hgb Hct RDW Lymph % (Auto) Bibb % (Auto) Eos % (Auto) Lymph # (Auto) Bibb # (Auto) Eos # (Auto) Seg Neutrophils % Lymphocytes % (Manual) Monocytes % (Manual) Seg Neutrophils # Seg Neutrophils # Man Lymphocytes # (Manual) Monocytes # (Manual) D-Dimer Heparin Anti-Xa Level ABG pH POC ABG pCO2 POC ABG pO2 ABG pO2 ABG HCO3 ABG O2 Saturation ABG Base Excess ABG Hemoglobin ABG Oxyhemoglobin ABG Sodium ABG Potassium ABG Chloride ABG Glucose VBG pH Oxyhemoglobin Carboxyhemoglobin Sodium 157 H Potassium 3.3 L Chloride Carbon Dioxide 47 H* BUN 52 H Creatinine 3.0 H Glucose 137 H POC Glucose 138 H 119 H Lactic Acid Calcium 8.0 L Phosphorus Magnesium Total Bilirubin AST ALT Ammonia Lactate Dehydrogenase Total Creatine Kinase CK-MB (CK-2) Troponin T C-Reactive Protein NT-Pro-B Natriuret Pep Total Protein Albumin Triglycerides TSH Arterial Blood Glucose Arterial Blood Ionized Calcium Urine pH Urine WBC (Auto) Urine Creatinine 10/12/20 10/13/20 10/13/20 23:37 02:28 04:52 WBC RBC Hgb Hct RDW Lymph % (Auto) Bibb % (Auto) Eos % (Auto) Lymph # (Auto) Bibb # (Auto) Eos # (Auto) Seg Neutrophils % Lymphocytes % (Manual) Monocytes % (Manual) Seg Neutrophils # Seg Neutrophils # Man Lymphocytes # (Manual) Monocytes # (Manual) D-Dimer Heparin Anti-Xa Level ABG pH 7.485 H POC ABG pCO2 57.1 H POC ABG pO2 ABG pO2 ABG HCO3 ABG O2 Saturation ABG Base Excess ABG Hemoglobin ABG Oxyhemoglobin ABG Sodium 152.4 H ABG Potassium ABG Chloride ABG Glucose 129 H VBG pH Oxyhemoglobin Carboxyhemoglobin Sodium 155 H Potassium Chloride Carbon Dioxide 45 H* BUN 52 H Creatinine 2.7 H Glucose 121 H POC Glucose 131 H Lactic Acid Calcium Phosphorus Magnesium 2.40 H Total Bilirubin AST ALT Ammonia Lactate Dehydrogenase Total Creatine Kinase CK-MB (CK-2) Troponin T C-Reactive Protein NT-Pro-B Natriuret Pep Total Protein Albumin Triglycerides 278 H TSH Arterial Blood Glucose 129 H Arterial Blood Ionized Calcium 4.1 L Urine pH Urine WBC (Auto) Urine Creatinine 10/13/20 10/13/20 10/13/20 04:52 05:13 11:37 WBC 14.7 H RBC Hgb 11.7 L Hct RDW 15.8 H Lymph % (Auto) Bibb % (Auto) Eos % (Auto) Lymph # (Auto) Bibb # (Auto) Eos # (Auto) Seg Neutrophils % Lymphocytes % (Manual) Monocytes % (Manual) Seg Neutrophils # Seg Neutrophils # Man Lymphocytes # (Manual) Monocytes # (Manual) D-Dimer Heparin Anti-Xa Level ABG pH POC ABG pCO2 POC ABG pO2 ABG pO2 ABG HCO3 ABG O2 Saturation ABG Base Excess ABG Hemoglobin ABG Oxyhemoglobin ABG Sodium ABG Potassium ABG Chloride ABG Glucose VBG pH Oxyhemoglobin Carboxyhemoglobin Sodium Potassium Chloride Carbon Dioxide BUN Creatinine Glucose POC Glucose 116 H 116 H Lactic Acid Calcium Phosphorus Magnesium Total Bilirubin AST ALT Ammonia Lactate Dehydrogenase Total Creatine Kinase CK-MB (CK-2) Troponin T C-Reactive Protein NT-Pro-B Natriuret Pep Total Protein Albumin Triglycerides TSH Arterial Blood Glucose Arterial Blood Ionized Calcium Urine pH Urine WBC (Auto) Urine Creatinine 10/13/20 10/14/20 10/14/20 17:50 03:45 04:46 WBC 11.1 H RBC Hgb Hct RDW 15.3 H Lymph % (Auto) Bibb % (Auto) Eos % (Auto) Lymph # (Auto) Bibb # (Auto) Eos # (Auto) Seg Neutrophils % Lymphocytes % (Manual) Monocytes % (Manual) Seg Neutrophils # Seg Neutrophils # Man Lymphocytes # (Manual) Monocytes # (Manual) D-Dimer Heparin Anti-Xa Level ABG pH POC ABG pCO2 59.6 H POC ABG pO2 ABG pO2 ABG HCO3 ABG O2 Saturation ABG Base Excess ABG Hemoglobin ABG Oxyhemoglobin ABG Sodium 151.4 H ABG Potassium 3.3 L ABG Chloride ABG Glucose 138 H VBG pH Oxyhemoglobin Carboxyhemoglobin 1.6 H Sodium Potassium Chloride Carbon Dioxide BUN Creatinine Glucose POC Glucose 140 H Lactic Acid Calcium Phosphorus Magnesium Total Bilirubin AST ALT Ammonia Lactate Dehydrogenase Total Creatine Kinase CK-MB (CK-2) Troponin T C-Reactive Protein NT-Pro-B Natriuret Pep Total Protein Albumin Triglycerides TSH Arterial Blood Glucose 138 H Arterial Blood Ionized Calcium 4.5 L Urine pH Urine WBC (Auto) Urine Creatinine 10/14/20 10/14/20 10/14/20 04:46 05:10 11:11 WBC RBC Hgb Hct RDW Lymph % (Auto) Bibb % (Auto) Eos % (Auto) Lymph # (Auto) Bibb # (Auto) Eos # (Auto) Seg Neutrophils % Lymphocytes % (Manual) Monocytes % (Manual) Seg Neutrophils # Seg Neutrophils # Man Lymphocytes # (Manual) Monocytes # (Manual) D-Dimer Heparin Anti-Xa Level ABG pH POC ABG pCO2 POC ABG pO2 ABG pO2 ABG HCO3 ABG O2 Saturation ABG Base Excess ABG Hemoglobin ABG Oxyhemoglobin ABG Sodium ABG Potassium ABG Chloride ABG Glucose VBG pH Oxyhemoglobin Carboxyhemoglobin Sodium 152 H Potassium 3.5 L Chloride Carbon Dioxide 38 H D BUN 46 H Creatinine 2.3 H Glucose 127 H POC Glucose 116 H 114 H Lactic Acid Calcium Phosphorus Magnesium Total Bilirubin AST ALT Ammonia Lactate Dehydrogenase Total Creatine Kinase CK-MB (CK-2) Troponin T C-Reactive Protein NT-Pro-B Natriuret Pep Total Protein Albumin Triglycerides TSH Arterial Blood Glucose Arterial Blood Ionized Calcium Urine pH Urine WBC (Auto) Urine Creatinine 10/14/20 10/14/20 10/15/20 18:53 23:23 04:12 WBC RBC Hgb Hct RDW Lymph % (Auto) Bibb % (Auto) Eos % (Auto) Lymph # (Auto) Bibb # (Auto) Eos # (Auto) Seg Neutrophils % Lymphocytes % (Manual) Monocytes % (Manual) Seg Neutrophils # Seg Neutrophils # Man Lymphocytes # (Manual) Monocytes # (Manual) D-Dimer Heparin Anti-Xa Level ABG pH POC ABG pCO2 POC ABG pO2 ABG pO2 ABG HCO3 ABG O2 Saturation ABG Base Excess ABG Hemoglobin ABG Oxyhemoglobin ABG Sodium ABG Potassium ABG Chloride ABG Glucose VBG pH Oxyhemoglobin Carboxyhemoglobin Sodium 149 H Potassium 3.2 L Chloride Carbon Dioxide 37 H BUN 40 H Creatinine 2.0 H Glucose 124 H POC Glucose 128 H 113 H Lactic Acid Calcium Phosphorus Magnesium Total Bilirubin AST ALT Ammonia Lactate Dehydrogenase Total Creatine Kinase CK-MB (CK-2) Troponin T C-Reactive Protein NT-Pro-B Natriuret Pep Total Protein Albumin Triglycerides TSH Arterial Blood Glucose Arterial Blood Ionized Calcium Urine pH Urine WBC (Auto) Urine Creatinine 10/15/20 10/15/20 10/15/20 04:22 11:39 17:36 WBC RBC Hgb Hct RDW Lymph % (Auto) Bibb % (Auto) Eos % (Auto) Lymph # (Auto) Bibb # (Auto) Eos # (Auto) Seg Neutrophils % Lymphocytes % (Manual) Monocytes % (Manual) Seg Neutrophils # Seg Neutrophils # Man Lymphocytes # (Manual) Monocytes # (Manual) D-Dimer Heparin Anti-Xa Level ABG pH POC ABG pCO2 POC ABG pO2 ABG pO2 115.0 H ABG HCO3 38.1 H ABG O2 Saturation ABG Base Excess 11.3 H ABG Hemoglobin 11.0 L ABG Oxyhemoglobin ABG Sodium ABG Potassium ABG Chloride ABG Glucose VBG pH Oxyhemoglobin Carboxyhemoglobin Sodium Potassium Chloride Carbon Dioxide BUN Creatinine Glucose POC Glucose 123 H 118 H Lactic Acid Calcium Phosphorus Magnesium Total Bilirubin AST ALT Ammonia Lactate Dehydrogenase Total Creatine Kinase CK-MB (CK-2) Troponin T C-Reactive Protein NT-Pro-B Natriuret Pep Total Protein Albumin Triglycerides TSH Arterial Blood Glucose Arterial Blood Ionized Calcium Urine pH Urine WBC (Auto) Urine Creatinine 10/15/20 10/16/20 10/16/20 23:18 03:13 05:10 WBC RBC Hgb Hct RDW Lymph % (Auto) Bibb % (Auto) Eos % (Auto) Lymph # (Auto) Bibb # (Auto) Eos # (Auto) Seg Neutrophils % Lymphocytes % (Manual) Monocytes % (Manual) Seg Neutrophils # Seg Neutrophils # Man Lymphocytes # (Manual) Monocytes # (Manual) D-Dimer Heparin Anti-Xa Level ABG pH POC ABG pCO2 POC ABG pO2 ABG pO2 104.5 H ABG HCO3 35.1 H ABG O2 Saturation ABG Base Excess 9.5 H ABG Hemoglobin 7.9 L ABG Oxyhemoglobin ABG Sodium ABG Potassium ABG Chloride ABG Glucose VBG pH Oxyhemoglobin Carboxyhemoglobin Sodium Potassium 3.3 L Chloride Carbon Dioxide 33 H BUN 37 H Creatinine 1.4 H Glucose 148 H POC Glucose 135 H Lactic Acid Calcium Phosphorus Magnesium 2.40 H Total Bilirubin AST ALT Ammonia Lactate Dehydrogenase Total Creatine Kinase CK-MB (CK-2) Troponin T C-Reactive Protein NT-Pro-B Natriuret Pep Total Protein Albumin Triglycerides TSH Arterial Blood Glucose Arterial Blood Ionized Calcium Urine pH Urine WBC (Auto) Urine Creatinine 10/16/20 10/16/20 10/16/20 06:36 11:08 17:07 WBC RBC Hgb Hct RDW Lymph % (Auto) Bibb % (Auto) Eos % (Auto) Lymph # (Auto) Bibb # (Auto) Eos # (Auto) Seg Neutrophils % Lymphocytes % (Manual) Monocytes % (Manual) Seg Neutrophils # Seg Neutrophils # Man Lymphocytes # (Manual) Monocytes # (Manual) D-Dimer Heparin Anti-Xa Level ABG pH POC ABG pCO2 POC ABG pO2 ABG pO2 ABG HCO3 ABG O2 Saturation ABG Base Excess ABG Hemoglobin ABG Oxyhemoglobin ABG Sodium ABG Potassium ABG Chloride ABG Glucose VBG pH Oxyhemoglobin Carboxyhemoglobin Sodium Potassium Chloride Carbon Dioxide BUN Creatinine Glucose POC Glucose 150 H 111 H 132 H Lactic Acid Calcium Phosphorus Magnesium Total Bilirubin AST ALT Ammonia Lactate Dehydrogenase Total Creatine Kinase CK-MB (CK-2) Troponin T C-Reactive Protein NT-Pro-B Natriuret Pep Total Protein Albumin Triglycerides TSH Arterial Blood Glucose Arterial Blood Ionized Calcium Urine pH Urine WBC (Auto) Urine Creatinine 10/16/20 10/17/20 10/17/20 23:38 03:32 03:32 WBC RBC Hgb Hct RDW Lymph % (Auto) Bibb % (Auto) Eos % (Auto) Lymph # (Auto) Bibb # (Auto) Eos # (Auto) Seg Neutrophils % Lymphocytes % (Manual) Monocytes % (Manual) Seg Neutrophils # Seg Neutrophils # Man Lymphocytes # (Manual) Monocytes # (Manual) D-Dimer Heparin Anti-Xa Level ABG pH POC ABG pCO2 POC ABG pO2 ABG pO2 ABG HCO3 ABG O2 Saturation ABG Base Excess ABG Hemoglobin ABG Oxyhemoglobin ABG Sodium ABG Potassium ABG Chloride ABG Glucose VBG pH Oxyhemoglobin Carboxyhemoglobin Sodium 146 H Potassium Chloride Carbon Dioxide 32 H BUN 57 H Creatinine 2.4 H D Glucose 124 H POC Glucose 117 H Lactic Acid Calcium Phosphorus 5.20 H D Magnesium Total Bilirubin AST ALT Ammonia Lactate Dehydrogenase Total Creatine Kinase CK-MB (CK-2) Troponin T C-Reactive Protein NT-Pro-B Natriuret Pep Total Protein Albumin Triglycerides TSH Arterial Blood Glucose Arterial Blood Ionized Calcium Urine pH Urine WBC (Auto) Urine Creatinine 10/17/20 10/17/20 10/18/20 05:10 17:33 00:13 WBC RBC Hgb Hct RDW Lymph % (Auto) Bibb % (Auto) Eos % (Auto) Lymph # (Auto) Bibb # (Auto) Eos # (Auto) Seg Neutrophils % Lymphocytes % (Manual) Monocytes % (Manual) Seg Neutrophils # Seg Neutrophils # Man Lymphocytes # (Manual) Monocytes # (Manual) D-Dimer Heparin Anti-Xa Level ABG pH POC ABG pCO2 POC ABG pO2 ABG pO2 ABG HCO3 ABG O2 Saturation ABG Base Excess ABG Hemoglobin ABG Oxyhemoglobin ABG Sodium ABG Potassium ABG Chloride ABG Glucose VBG pH Oxyhemoglobin Carboxyhemoglobin Sodium Potassium Chloride Carbon Dioxide BUN Creatinine Glucose POC Glucose 122 H 121 H 23 L Lactic Acid Calcium Phosphorus Magnesium Total Bilirubin AST ALT Ammonia Lactate Dehydrogenase Total Creatine Kinase CK-MB (CK-2) Troponin T C-Reactive Protein NT-Pro-B Natriuret Pep Total Protein Albumin Triglycerides TSH Arterial Blood Glucose Arterial Blood Ionized Calcium Urine pH Urine WBC (Auto) Urine Creatinine 10/18/20 10/18/20 10/18/20 00:16 03:27 03:27 WBC RBC Hgb 11.7 L Hct RDW Lymph % (Auto) Bibb % (Auto) Eos % (Auto) Lymph # (Auto) Bibb # (Auto) Eos # (Auto) Seg Neutrophils % Lymphocytes % (Manual) Monocytes % (Manual) Seg Neutrophils # Seg Neutrophils # Man Lymphocytes # (Manual) Monocytes # (Manual) D-Dimer Heparin Anti-Xa Level ABG pH POC ABG pCO2 POC ABG pO2 ABG pO2 ABG HCO3 ABG O2 Saturation ABG Base Excess ABG Hemoglobin ABG Oxyhemoglobin ABG Sodium ABG Potassium ABG Chloride ABG Glucose VBG pH Oxyhemoglobin Carboxyhemoglobin Sodium Potassium Chloride 97.6 L Carbon Dioxide BUN 90 H Creatinine 3.3 H Glucose 146 H POC Glucose 134 H Lactic Acid Calcium Phosphorus Magnesium Total Bilirubin 1.70 H AST ALT Ammonia Lactate Dehydrogenase Total Creatine Kinase CK-MB (CK-2) Troponin T C-Reactive Protein NT-Pro-B Natriuret Pep Total Protein Albumin 3.1 L Triglycerides TSH Arterial Blood Glucose Arterial Blood Ionized Calcium Urine pH Urine WBC (Auto) Urine Creatinine 10/18/20 10/18/20 10/18/20 05:09 11:19 17:15 WBC RBC Hgb Hct RDW Lymph % (Auto) Bibb % (Auto) Eos % (Auto) Lymph # (Auto) Bibb # (Auto) Eos # (Auto) Seg Neutrophils % Lymphocytes % (Manual) Monocytes % (Manual) Seg Neutrophils # Seg Neutrophils # Man Lymphocytes # (Manual) Monocytes # (Manual) D-Dimer Heparin Anti-Xa Level ABG pH POC ABG pCO2 POC ABG pO2 ABG pO2 ABG HCO3 ABG O2 Saturation ABG Base Excess ABG Hemoglobin ABG Oxyhemoglobin ABG Sodium ABG Potassium ABG Chloride ABG Glucose VBG pH Oxyhemoglobin Carboxyhemoglobin Sodium Potassium Chloride Carbon Dioxide BUN Creatinine Glucose POC Glucose 144 H 145 H 151 H Lactic Acid Calcium Phosphorus Magnesium Total Bilirubin AST ALT Ammonia Lactate Dehydrogenase Total Creatine Kinase CK-MB (CK-2) Troponin T C-Reactive Protein NT-Pro-B Natriuret Pep Total Protein Albumin Triglycerides TSH Arterial Blood Glucose Arterial Blood Ionized Calcium Urine pH Urine WBC (Auto) Urine Creatinine 10/18/20 10/18/20 10/19/20 23:16 Unknown 04:55 WBC RBC Hgb Hct RDW Lymph % (Auto) Bibb % (Auto) Eos % (Auto) Lymph # (Auto) Bibb # (Auto) Eos # (Auto) Seg Neutrophils % Lymphocytes % (Manual) Monocytes % (Manual) Seg Neutrophils # Seg Neutrophils # Man Lymphocytes # (Manual) Monocytes # (Manual) D-Dimer Heparin Anti-Xa Level ABG pH POC ABG pCO2 POC ABG pO2 ABG pO2 ABG HCO3 ABG O2 Saturation ABG Base Excess ABG Hemoglobin ABG Oxyhemoglobin ABG Sodium ABG Potassium ABG Chloride ABG Glucose VBG pH Oxyhemoglobin Carboxyhemoglobin Sodium Potassium Chloride Carbon Dioxide BUN 104 H Creatinine 3.1 H Glucose 139 H POC Glucose 123 H Lactic Acid Calcium Phosphorus Magnesium Total Bilirubin AST ALT Ammonia Lactate Dehydrogenase Total Creatine Kinase CK-MB (CK-2) Troponin T C-Reactive Protein NT-Pro-B Natriuret Pep Total Protein Albumin Triglycerides TSH Arterial Blood Glucose Arterial Blood Ionized Calcium Urine pH Urine WBC (Auto) 115.0 H Urine Creatinine 10/19/20 10/19/20 10/19/20 04:55 11:35 13:14 WBC 15.1 H RBC Hgb 11.1 L Hct 34.4 L RDW Lymph % (Auto) 4.2 L Bibb % (Auto) 11.9 H Eos % (Auto) Lymph # (Auto) 0.6 L Bibb # (Auto) 1.8 H Eos # (Auto) Seg Neutrophils % 82.0 H Lymphocytes % (Manual) Monocytes % (Manual) Seg Neutrophils # 12.4 H Seg Neutrophils # Man Lymphocytes # (Manual) Monocytes # (Manual) D-Dimer Heparin Anti-Xa Level ABG pH POC ABG pCO2 POC ABG pO2 ABG pO2 ABG HCO3 ABG O2 Saturation ABG Base Excess ABG Hemoglobin ABG Oxyhemoglobin ABG Sodium ABG Potassium ABG Chloride ABG Glucose VBG pH Oxyhemoglobin Carboxyhemoglobin Sodium Potassium Chloride Carbon Dioxide BUN Creatinine Glucose POC Glucose 136 H Lactic Acid Calcium Phosphorus Magnesium Total Bilirubin AST ALT Ammonia Lactate Dehydrogenase Total Creatine Kinase CK-MB (CK-2) Troponin T C-Reactive Protein NT-Pro-B Natriuret Pep Total Protein Albumin Triglycerides TSH Arterial Blood Glucose Arterial Blood Ionized Calcium Urine pH Urine WBC (Auto) Urine Creatinine 93.7 H 10/19/20 10/19/20 10/20/20 17:53 23:39 04:30 WBC RBC Hgb Hct RDW Lymph % (Auto) Bibb % (Auto) Eos % (Auto) Lymph # (Auto) Bibb # (Auto) Eos # (Auto) Seg Neutrophils % Lymphocytes % (Manual) Monocytes % (Manual) Seg Neutrophils # Seg Neutrophils # Man Lymphocytes # (Manual) Monocytes # (Manual) D-Dimer Heparin Anti-Xa Level ABG pH POC ABG pCO2 POC ABG pO2 ABG pO2 ABG HCO3 ABG O2 Saturation ABG Base Excess ABG Hemoglobin ABG Oxyhemoglobin ABG Sodium ABG Potassium ABG Chloride ABG Glucose VBG pH Oxyhemoglobin Carboxyhemoglobin Sodium Potassium Chloride Carbon Dioxide BUN 104 H Creatinine 2.8 H Glucose 151 H POC Glucose 137 H 133 H Lactic Acid Calcium Phosphorus Magnesium Total Bilirubin AST ALT Ammonia Lactate Dehydrogenase Total Creatine Kinase CK-MB (CK-2) Troponin T C-Reactive Protein NT-Pro-B Natriuret Pep Total Protein Albumin Triglycerides TSH Arterial Blood Glucose Arterial Blood Ionized Calcium Urine pH Urine WBC (Auto) Urine Creatinine 10/20/20 10/20/20 10/20/20 04:30 05:38 11:34 WBC 17.9 H RBC Hgb 11.7 L Hct RDW Lymph % (Auto) Bibb % (Auto) Eos % (Auto) Lymph # (Auto) Bibb # (Auto) Eos # (Auto) Seg Neutrophils % Lymphocytes % (Manual) Monocytes % (Manual) Seg Neutrophils # Seg Neutrophils # Man Lymphocytes # (Manual) Monocytes # (Manual) D-Dimer Heparin Anti-Xa Level ABG pH POC ABG pCO2 POC ABG pO2 ABG pO2 ABG HCO3 ABG O2 Saturation ABG Base Excess ABG Hemoglobin ABG Oxyhemoglobin ABG Sodium ABG Potassium ABG Chloride ABG Glucose VBG pH Oxyhemoglobin Carboxyhemoglobin Sodium Potassium Chloride Carbon Dioxide BUN Creatinine Glucose POC Glucose 164 H 148 H Lactic Acid Calcium Phosphorus Magnesium Total Bilirubin AST ALT Ammonia Lactate Dehydrogenase Total Creatine Kinase CK-MB (CK-2) Troponin T C-Reactive Protein NT-Pro-B Natriuret Pep Total Protein Albumin Triglycerides TSH Arterial Blood Glucose Arterial Blood Ionized Calcium Urine pH Urine WBC (Auto) Urine Creatinine 10/20/20 10/20/20 10/20/20 17:40 20:20 23:29 WBC RBC Hgb Hct RDW Lymph % (Auto) Bibb % (Auto) Eos % (Auto) Lymph # (Auto) Bibb # (Auto) Eos # (Auto) Seg Neutrophils % Lymphocytes % (Manual) Monocytes % (Manual) Seg Neutrophils # Seg Neutrophils # Man Lymphocytes # (Manual) Monocytes # (Manual) D-Dimer Heparin Anti-Xa Level ABG pH 7.292 L POC ABG pCO2 68.5 H POC ABG pO2 ABG pO2 ABG HCO3 ABG O2 Saturation ABG Base Excess ABG Hemoglobin 11.6 L ABG Oxyhemoglobin ABG Sodium ABG Potassium ABG Chloride ABG Glucose 145 H VBG pH Oxyhemoglobin Carboxyhemoglobin Sodium Potassium Chloride Carbon Dioxide BUN Creatinine Glucose POC Glucose 130 H 136 H Lactic Acid Calcium Phosphorus Magnesium Total Bilirubin AST ALT Ammonia Lactate Dehydrogenase Total Creatine Kinase CK-MB (CK-2) Troponin T C-Reactive Protein NT-Pro-B Natriuret Pep Total Protein Albumin Triglycerides TSH Arterial Blood Glucose 145 H Arterial Blood Ionized Calcium Urine pH Urine WBC (Auto) Urine Creatinine 10/21/20 10/21/20 10/21/20 04:20 06:26 06:30 WBC RBC Hgb Hct RDW Lymph % (Auto) Bibb % (Auto) Eos % (Auto) Lymph # (Auto) Bibb # (Auto) Eos # (Auto) Seg Neutrophils % Lymphocytes % (Manual) Monocytes % (Manual) Seg Neutrophils # Seg Neutrophils # Man Lymphocytes # (Manual) Monocytes # (Manual) D-Dimer Heparin Anti-Xa Level ABG pH 7.262 L POC ABG pCO2 72.4 H POC ABG pO2 81.6 L ABG pO2 ABG HCO3 ABG O2 Saturation ABG Base Excess ABG Hemoglobin 11.6 L ABG Oxyhemoglobin ABG Sodium ABG Potassium ABG Chloride ABG Glucose 140 H VBG pH Oxyhemoglobin Carboxyhemoglobin Sodium Potassium Chloride Carbon Dioxide 33 H BUN 104 H Creatinine 2.9 H Glucose 153 H POC Glucose 128 H Lactic Acid Calcium Phosphorus Magnesium Total Bilirubin AST ALT Ammonia Lactate Dehydrogenase Total Creatine Kinase CK-MB (CK-2) Troponin T C-Reactive Protein NT-Pro-B Natriuret Pep Total Protein Albumin Triglycerides TSH Arterial Blood Glucose 140 H Arterial Blood Ionized Calcium Urine pH Urine WBC (Auto) Urine Creatinine 10/21/20 10/21/20 10/21/20 06:30 11:24 17:21 WBC 13.3 H RBC Hgb 10.7 L Hct 32.7 L RDW Lymph % (Auto) Bibb % (Auto) Eos % (Auto) Lymph # (Auto) Bibb # (Auto) Eos # (Auto) Seg Neutrophils % Lymphocytes % (Manual) Monocytes % (Manual) Seg Neutrophils # Seg Neutrophils # Man Lymphocytes # (Manual) Monocytes # (Manual) D-Dimer Heparin Anti-Xa Level ABG pH POC ABG pCO2 POC ABG pO2 ABG pO2 ABG HCO3 ABG O2 Saturation ABG Base Excess ABG Hemoglobin ABG Oxyhemoglobin ABG Sodium ABG Potassium ABG Chloride ABG Glucose VBG pH Oxyhemoglobin Carboxyhemoglobin Sodium Potassium Chloride Carbon Dioxide BUN Creatinine Glucose POC Glucose 178 H 138 H Lactic Acid Calcium Phosphorus Magnesium Total Bilirubin AST ALT Ammonia Lactate Dehydrogenase Total Creatine Kinase CK-MB (CK-2) Troponin T C-Reactive Protein NT-Pro-B Natriuret Pep Total Protein Albumin Triglycerides TSH Arterial Blood Glucose Arterial Blood Ionized Calcium Urine pH Urine WBC (Auto) Urine Creatinine 10/22/20 10/22/20 10/22/20 00:05 04:30 06:15 WBC RBC Hgb Hct RDW Lymph % (Auto) Bibb % (Auto) Eos % (Auto) Lymph # (Auto) Bibb # (Auto) Eos # (Auto) Seg Neutrophils % Lymphocytes % (Manual) Monocytes % (Manual) Seg Neutrophils # Seg Neutrophils # Man Lymphocytes # (Manual) Monocytes # (Manual) D-Dimer Heparin Anti-Xa Level ABG pH 7.225 L POC ABG pCO2 76.6 H POC ABG pO2 ABG pO2 ABG HCO3 ABG O2 Saturation ABG Base Excess ABG Hemoglobin 11.1 L ABG Oxyhemoglobin ABG Sodium ABG Potassium ABG Chloride ABG Glucose 151 H VBG pH Oxyhemoglobin Carboxyhemoglobin Sodium Potassium Chloride Carbon Dioxide 32 H BUN 103 H Creatinine 2.7 H Glucose 151 H POC Glucose 135 H Lactic Acid Calcium Phosphorus Magnesium Total Bilirubin AST ALT Ammonia Lactate Dehydrogenase Total Creatine Kinase CK-MB (CK-2) Troponin T C-Reactive Protein NT-Pro-B Natriuret Pep Total Protein Albumin Triglycerides TSH Arterial Blood Glucose 151 H Arterial Blood Ionized Calcium Urine pH Urine WBC (Auto) Urine Creatinine 10/22/20 10/22/20 10/22/20 06:18 11:34 11:44 WBC RBC Hgb Hct RDW Lymph % (Auto) Bibb % (Auto) Eos % (Auto) Lymph # (Auto) Bibb # (Auto) Eos # (Auto) Seg Neutrophils % Lymphocytes % (Manual) Monocytes % (Manual) Seg Neutrophils # Seg Neutrophils # Man Lymphocytes # (Manual) Monocytes # (Manual) D-Dimer Heparin Anti-Xa Level ABG pH 7.278 L POC ABG pCO2 67.8 H POC ABG pO2 ABG pO2 ABG HCO3 ABG O2 Saturation ABG Base Excess ABG Hemoglobin 10.2 L ABG Oxyhemoglobin ABG Sodium ABG Potassium ABG Chloride ABG Glucose 172 H VBG pH Oxyhemoglobin Carboxyhemoglobin Sodium Potassium Chloride Carbon Dioxide BUN Creatinine Glucose POC Glucose 137 H 147 H Lactic Acid Calcium Phosphorus Magnesium Total Bilirubin AST ALT Ammonia Lactate Dehydrogenase Total Creatine Kinase CK-MB (CK-2) Troponin T C-Reactive Protein NT-Pro-B Natriuret Pep Total Protein Albumin Triglycerides TSH Arterial Blood Glucose 172 H Arterial Blood Ionized Calcium Urine pH Urine WBC (Auto) Urine Creatinine 10/22/20 10/22/20 10/23/20 17:40 23:55 05:11 WBC RBC Hgb Hct RDW Lymph % (Auto) Bibb % (Auto) Eos % (Auto) Lymph # (Auto) Bibb # (Auto) Eos # (Auto) Seg Neutrophils % Lymphocytes % (Manual) Monocytes % (Manual) Seg Neutrophils # Seg Neutrophils # Man Lymphocytes # (Manual) Monocytes # (Manual) D-Dimer Heparin Anti-Xa Level ABG pH POC ABG pCO2 63.6 H POC ABG pO2 81.2 L ABG pO2 ABG HCO3 ABG O2 Saturation ABG Base Excess ABG Hemoglobin 10.6 L ABG Oxyhemoglobin ABG Sodium ABG Potassium ABG Chloride 109.0 H ABG Glucose 149 H VBG pH Oxyhemoglobin Carboxyhemoglobin Sodium Potassium Chloride Carbon Dioxide BUN Creatinine Glucose POC Glucose 141 H 139 H Lactic Acid Calcium Phosphorus Magnesium Total Bilirubin AST ALT Ammonia Lactate Dehydrogenase Total Creatine Kinase CK-MB (CK-2) Troponin T C-Reactive Protein NT-Pro-B Natriuret Pep Total Protein Albumin Triglycerides TSH Arterial Blood Glucose 149 H Arterial Blood Ionized Calcium Urine pH Urine WBC (Auto) Urine Creatinine 10/23/20 10/23/20 10/23/20 05:39 06:00 11:32 WBC RBC Hgb Hct RDW Lymph % (Auto) Bibb % (Auto) Eos % (Auto) Lymph # (Auto) Bibb # (Auto) Eos # (Auto) Seg Neutrophils % Lymphocytes % (Manual) Monocytes % (Manual) Seg Neutrophils # Seg Neutrophils # Man Lymphocytes # (Manual) Monocytes # (Manual) D-Dimer Heparin Anti-Xa Level ABG pH POC ABG pCO2 POC ABG pO2 ABG pO2 ABG HCO3 ABG O2 Saturation ABG Base Excess ABG Hemoglobin ABG Oxyhemoglobin ABG Sodium ABG Potassium ABG Chloride ABG Glucose VBG pH Oxyhemoglobin Carboxyhemoglobin Sodium 146 H Potassium Chloride Carbon Dioxide 35 H BUN 92 H Creatinine 2.0 H Glucose 144 H POC Glucose 139 H 176 H Lactic Acid Calcium Phosphorus Magnesium Total Bilirubin AST ALT Ammonia Lactate Dehydrogenase Total Creatine Kinase CK-MB (CK-2) Troponin T C-Reactive Protein NT-Pro-B Natriuret Pep Total Protein Albumin Triglycerides TSH Arterial Blood Glucose Arterial Blood Ionized Calcium Urine pH Urine WBC (Auto) Urine Creatinine 10/23/20 10/23/20 10/24/20 11:34 17:55 05:33 WBC RBC Hgb Hct RDW Lymph % (Auto) Bibb % (Auto) Eos % (Auto) Lymph # (Auto) Bibb # (Auto) Eos # (Auto) Seg Neutrophils % Lymphocytes % (Manual) Monocytes % (Manual) Seg Neutrophils # Seg Neutrophils # Man Lymphocytes # (Manual) Monocytes # (Manual) D-Dimer Heparin Anti-Xa Level ABG pH POC ABG pCO2 POC ABG pO2 ABG pO2 ABG HCO3 ABG O2 Saturation ABG Base Excess ABG Hemoglobin ABG Oxyhemoglobin ABG Sodium ABG Potassium ABG Chloride ABG Glucose VBG pH Oxyhemoglobin Carboxyhemoglobin Sodium 147 H Potassium Chloride Carbon Dioxide 32 H BUN 76 H Creatinine 1.7 H Glucose 172 H POC Glucose 173 H 135 H Lactic Acid Calcium Phosphorus Magnesium Total Bilirubin AST ALT Ammonia Lactate Dehydrogenase Total Creatine Kinase CK-MB (CK-2) Troponin T C-Reactive Protein NT-Pro-B Natriuret Pep Total Protein Albumin Triglycerides TSH Arterial Blood Glucose Arterial Blood Ionized Calcium Urine pH Urine WBC (Auto) Urine Creatinine 10/24/20 10/24/20 10/24/20 05:41 12:09 18:09 WBC RBC Hgb Hct RDW Lymph % (Auto) Bibb % (Auto) Eos % (Auto) Lymph # (Auto) Bibb # (Auto) Eos # (Auto) Seg Neutrophils % Lymphocytes % (Manual) Monocytes % (Manual) Seg Neutrophils # Seg Neutrophils # Man Lymphocytes # (Manual) Monocytes # (Manual) D-Dimer Heparin Anti-Xa Level ABG pH POC ABG pCO2 POC ABG pO2 ABG pO2 ABG HCO3 ABG O2 Saturation ABG Base Excess ABG Hemoglobin ABG Oxyhemoglobin ABG Sodium ABG Potassium ABG Chloride ABG Glucose VBG pH Oxyhemoglobin Carboxyhemoglobin Sodium Potassium Chloride Carbon Dioxide BUN Creatinine Glucose POC Glucose 156 H 154 H 132 H Lactic Acid Calcium Phosphorus Magnesium Total Bilirubin AST ALT Ammonia Lactate Dehydrogenase Total Creatine Kinase CK-MB (CK-2) Troponin T C-Reactive Protein NT-Pro-B Natriuret Pep Total Protein Albumin Triglycerides TSH Arterial Blood Glucose Arterial Blood Ionized Calcium Urine pH Urine WBC (Auto) Urine Creatinine 10/24/20 10/25/20 10/25/20 23:39 05:29 08:55 WBC RBC Hgb Hct RDW Lymph % (Auto) Bibb % (Auto) Eos % (Auto) Lymph # (Auto) Bibb # (Auto) Eos # (Auto) Seg Neutrophils % Lymphocytes % (Manual) Monocytes % (Manual) Seg Neutrophils # Seg Neutrophils # Man Lymphocytes # (Manual) Monocytes # (Manual) D-Dimer Heparin Anti-Xa Level ABG pH POC ABG pCO2 POC ABG pO2 ABG pO2 ABG HCO3 ABG O2 Saturation ABG Base Excess ABG Hemoglobin ABG Oxyhemoglobin ABG Sodium ABG Potassium ABG Chloride ABG Glucose VBG pH Oxyhemoglobin Carboxyhemoglobin Sodium 150 H Potassium Chloride 108.3 H Carbon Dioxide 32 H BUN 57 H Creatinine 1.5 H Glucose 142 H POC Glucose 131 H 142 H Lactic Acid Calcium Phosphorus Magnesium Total Bilirubin AST ALT Ammonia Lactate Dehydrogenase Total Creatine Kinase CK-MB (CK-2) Troponin T C-Reactive Protein NT-Pro-B Natriuret Pep Total Protein Albumin Triglycerides TSH Arterial Blood Glucose Arterial Blood Ionized Calcium Urine pH Urine WBC (Auto) Urine Creatinine 10/25/20 10/25/20 10/25/20 08:55 11:08 18:10 WBC 14.3 H RBC 3.57 L Hgb 10.3 L Hct 31.6 L RDW Lymph % (Auto) Bibb % (Auto) Eos % (Auto) Lymph # (Auto) Bibb # (Auto) Eos # (Auto) Seg Neutrophils % Lymphocytes % (Manual) Monocytes % (Manual) Seg Neutrophils # Seg Neutrophils # Man Lymphocytes # (Manual) Monocytes # (Manual) D-Dimer Heparin Anti-Xa Level ABG pH POC ABG pCO2 52.3 H POC ABG pO2 ABG pO2 ABG HCO3 ABG O2 Saturation ABG Base Excess ABG Hemoglobin 11.2 L ABG Oxyhemoglobin ABG Sodium ABG Potassium ABG Chloride 108.0 H ABG Glucose 167 H VBG pH Oxyhemoglobin Carboxyhemoglobin Sodium Potassium Chloride Carbon Dioxide BUN Creatinine Glucose POC Glucose 157 H Lactic Acid Calcium Phosphorus Magnesium Total Bilirubin AST ALT Ammonia Lactate Dehydrogenase Total Creatine Kinase CK-MB (CK-2) Troponin T C-Reactive Protein NT-Pro-B Natriuret Pep Total Protein Albumin Triglycerides TSH Arterial Blood Glucose 167 H Arterial Blood Ionized Calcium Urine pH Urine WBC (Auto) Urine Creatinine 10/25/20 10/26/20 10/26/20 18:20 00:20 06:08 WBC RBC Hgb Hct RDW Lymph % (Auto) Bibb % (Auto) Eos % (Auto) Lymph # (Auto) Bibb # (Auto) Eos # (Auto) Seg Neutrophils % Lymphocytes % (Manual) Monocytes % (Manual) Seg Neutrophils # Seg Neutrophils # Man Lymphocytes # (Manual) Monocytes # (Manual) D-Dimer Heparin Anti-Xa Level ABG pH POC ABG pCO2 POC ABG pO2 ABG pO2 ABG HCO3 ABG O2 Saturation ABG Base Excess ABG Hemoglobin ABG Oxyhemoglobin ABG Sodium ABG Potassium ABG Chloride ABG Glucose VBG pH Oxyhemoglobin Carboxyhemoglobin Sodium Potassium Chloride Carbon Dioxide BUN Creatinine Glucose POC Glucose 127 H 108 H 119 H Lactic Acid Calcium Phosphorus Magnesium Total Bilirubin AST ALT Ammonia Lactate Dehydrogenase Total Creatine Kinase CK-MB (CK-2) Troponin T C-Reactive Protein NT-Pro-B Natriuret Pep Total Protein Albumin Triglycerides TSH Arterial Blood Glucose Arterial Blood Ionized Calcium Urine pH Urine WBC (Auto) Urine Creatinine 10/26/20 10/26/20 10/26/20 07:38 07:38 11:28 WBC 13.5 H RBC 3.37 L Hgb 9.8 L Hct 30.0 L RDW Lymph % (Auto) Bibb % (Auto) Eos % (Auto) Lymph # (Auto) Bibb # (Auto) Eos # (Auto) Seg Neutrophils % Lymphocytes % (Manual) Monocytes % (Manual) Seg Neutrophils # Seg Neutrophils # Man Lymphocytes # (Manual) Monocytes # (Manual) D-Dimer Heparin Anti-Xa Level ABG pH POC ABG pCO2 POC ABG pO2 ABG pO2 ABG HCO3 ABG O2 Saturation ABG Base Excess ABG Hemoglobin ABG Oxyhemoglobin ABG Sodium ABG Potassium ABG Chloride ABG Glucose VBG pH Oxyhemoglobin Carboxyhemoglobin Sodium 149 H Potassium Chloride 107.6 H Carbon Dioxide 34 H BUN 49 H Creatinine 1.4 H Glucose 137 H POC Glucose 148 H Lactic Acid Calcium Phosphorus Magnesium Total Bilirubin AST ALT Ammonia Lactate Dehydrogenase Total Creatine Kinase CK-MB (CK-2) Troponin T C-Reactive Protein NT-Pro-B Natriuret Pep Total Protein Albumin Triglycerides TSH Arterial Blood Glucose Arterial Blood Ionized Calcium Urine pH Urine WBC (Auto) Urine Creatinine 10/26/20 10/26/20 10/27/20 18:17 23:37 05:08 WBC RBC Hgb Hct RDW Lymph % (Auto) Bibb % (Auto) Eos % (Auto) Lymph # (Auto) Bibb # (Auto) Eos # (Auto) Seg Neutrophils % Lymphocytes % (Manual) Monocytes % (Manual) Seg Neutrophils # Seg Neutrophils # Man Lymphocytes # (Manual) Monocytes # (Manual) D-Dimer Heparin Anti-Xa Level ABG pH POC ABG pCO2 POC ABG pO2 ABG pO2 ABG HCO3 ABG O2 Saturation ABG Base Excess ABG Hemoglobin ABG Oxyhemoglobin ABG Sodium ABG Potassium ABG Chloride ABG Glucose VBG pH Oxyhemoglobin Carboxyhemoglobin Sodium Potassium Chloride Carbon Dioxide BUN Creatinine Glucose POC Glucose 121 H 152 H 120 H Lactic Acid Calcium Phosphorus Magnesium Total Bilirubin AST ALT Ammonia Lactate Dehydrogenase Total Creatine Kinase CK-MB (CK-2) Troponin T C-Reactive Protein NT-Pro-B Natriuret Pep Total Protein Albumin Triglycerides TSH Arterial Blood Glucose Arterial Blood Ionized Calcium Urine pH Urine WBC (Auto) Urine Creatinine 10/27/20 10/27/20 10/27/20 07:30 07:30 11:59 WBC RBC 3.46 L Hgb 10.2 L Hct 30.9 L RDW Lymph % (Auto) Bibb % (Auto) Eos % (Auto) Lymph # (Auto) Bibb # (Auto) Eos # (Auto) Seg Neutrophils % Lymphocytes % (Manual) Monocytes % (Manual) Seg Neutrophils # Seg Neutrophils # Man Lymphocytes # (Manual) Monocytes # (Manual) D-Dimer Heparin Anti-Xa Level ABG pH POC ABG pCO2 POC ABG pO2 ABG pO2 ABG HCO3 ABG O2 Saturation ABG Base Excess ABG Hemoglobin ABG Oxyhemoglobin ABG Sodium ABG Potassium ABG Chloride ABG Glucose VBG pH Oxyhemoglobin Carboxyhemoglobin Sodium 146 H Potassium Chloride Carbon Dioxide 34 H BUN 45 H Creatinine Glucose 131 H POC Glucose 143 H Lactic Acid Calcium Phosphorus Magnesium Total Bilirubin AST ALT Ammonia Lactate Dehydrogenase Total Creatine Kinase CK-MB (CK-2) Troponin T C-Reactive Protein NT-Pro-B Natriuret Pep Total Protein Albumin Triglycerides TSH Arterial Blood Glucose Arterial Blood Ionized Calcium Urine pH Urine WBC (Auto) Urine Creatinine 10/27/20 10/27/20 10/28/20 18:52 23:03 07:00 WBC RBC Hgb Hct RDW Lymph % (Auto) Bibb % (Auto) Eos % (Auto) Lymph # (Auto) Bibb # (Auto) Eos # (Auto) Seg Neutrophils % Lymphocytes % (Manual) Monocytes % (Manual) Seg Neutrophils # Seg Neutrophils # Man Lymphocytes # (Manual) Monocytes # (Manual) D-Dimer Heparin Anti-Xa Level ABG pH POC ABG pCO2 POC ABG pO2 ABG pO2 ABG HCO3 ABG O2 Saturation ABG Base Excess ABG Hemoglobin ABG Oxyhemoglobin ABG Sodium ABG Potassium ABG Chloride ABG Glucose VBG pH Oxyhemoglobin Carboxyhemoglobin Sodium 147 H Potassium Chloride Carbon Dioxide 35 H BUN 39 H Creatinine Glucose 133 H POC Glucose 119 H 158 H Lactic Acid Calcium Phosphorus Magnesium Total Bilirubin AST ALT Ammonia Lactate Dehydrogenase Total Creatine Kinase CK-MB (CK-2) Troponin T C-Reactive Protein NT-Pro-B Natriuret Pep Total Protein Albumin Triglycerides TSH Arterial Blood Glucose Arterial Blood Ionized Calcium Urine pH Urine WBC (Auto) Urine Creatinine 10/28/20 10/28/20 10/28/20 09:00 11:47 17:15 WBC 12.5 H RBC 3.58 L Hgb 10.5 L Hct 32.1 L RDW Lymph % (Auto) Bibb % (Auto) Eos % (Auto) Lymph # (Auto) Bibb # (Auto) Eos # (Auto) Seg Neutrophils % Lymphocytes % (Manual) Monocytes % (Manual) Seg Neutrophils # Seg Neutrophils # Man Lymphocytes # (Manual) Monocytes # (Manual) D-Dimer Heparin Anti-Xa Level ABG pH POC ABG pCO2 POC ABG pO2 ABG pO2 ABG HCO3 ABG O2 Saturation ABG Base Excess ABG Hemoglobin ABG Oxyhemoglobin ABG Sodium ABG Potassium ABG Chloride ABG Glucose VBG pH Oxyhemoglobin Carboxyhemoglobin Sodium Potassium Chloride Carbon Dioxide BUN Creatinine Glucose POC Glucose 129 H 109 H Lactic Acid Calcium Phosphorus Magnesium Total Bilirubin AST ALT Ammonia Lactate Dehydrogenase Total Creatine Kinase CK-MB (CK-2) Troponin T C-Reactive Protein NT-Pro-B Natriuret Pep Total Protein Albumin Triglycerides TSH Arterial Blood Glucose Arterial Blood Ionized Calcium Urine pH Urine WBC (Auto) Urine Creatinine 10/28/20 10/29/20 10/29/20 23:31 04:23 04:23 WBC 13.6 H RBC 3.47 L Hgb 10.5 L Hct 30.7 L RDW 15.4 H Lymph % (Auto) Bibb % (Auto) Eos % (Auto) Lymph # (Auto) Bibb # (Auto) Eos # (Auto) Seg Neutrophils % Lymphocytes % (Manual) Monocytes % (Manual) Seg Neutrophils # Seg Neutrophils # Man Lymphocytes # (Manual) Monocytes # (Manual) D-Dimer Heparin Anti-Xa Level ABG pH POC ABG pCO2 POC ABG pO2 ABG pO2 ABG HCO3 ABG O2 Saturation ABG Base Excess ABG Hemoglobin ABG Oxyhemoglobin ABG Sodium ABG Potassium ABG Chloride ABG Glucose VBG pH Oxyhemoglobin Carboxyhemoglobin Sodium Potassium Chloride Carbon Dioxide 35 H BUN 34 H Creatinine Glucose 107 H POC Glucose 138 H Lactic Acid Calcium Phosphorus Magnesium Total Bilirubin AST ALT Ammonia Lactate Dehydrogenase Total Creatine Kinase CK-MB (CK-2) Troponin T C-Reactive Protein NT-Pro-B Natriuret Pep Total Protein Albumin Triglycerides TSH Arterial Blood Glucose Arterial Blood Ionized Calcium Urine pH Urine WBC (Auto) Urine Creatinine 10/29/20 10/29/20 10/29/20 05:21 11:49 23:19 WBC RBC Hgb Hct RDW Lymph % (Auto) Bibb % (Auto) Eos % (Auto) Lymph # (Auto) Bibb # (Auto) Eos # (Auto) Seg Neutrophils % Lymphocytes % (Manual) Monocytes % (Manual) Seg Neutrophils # Seg Neutrophils # Man Lymphocytes # (Manual) Monocytes # (Manual) D-Dimer Heparin Anti-Xa Level ABG pH POC ABG pCO2 POC ABG pO2 ABG pO2 ABG HCO3 ABG O2 Saturation ABG Base Excess ABG Hemoglobin ABG Oxyhemoglobin ABG Sodium ABG Potassium ABG Chloride ABG Glucose VBG pH Oxyhemoglobin Carboxyhemoglobin Sodium Potassium Chloride Carbon Dioxide BUN Creatinine Glucose POC Glucose 115 H 124 H 129 H Lactic Acid Calcium Phosphorus Magnesium Total Bilirubin AST ALT Ammonia Lactate Dehydrogenase Total Creatine Kinase CK-MB (CK-2) Troponin T C-Reactive Protein NT-Pro-B Natriuret Pep Total Protein Albumin Triglycerides TSH Arterial Blood Glucose Arterial Blood Ionized Calcium Urine pH Urine WBC (Auto) Urine Creatinine 10/30/20 10/30/20 10/30/20 04:59 05:10 11:52 WBC RBC Hgb Hct RDW Lymph % (Auto) Bibb % (Auto) Eos % (Auto) Lymph # (Auto) Bibb # (Auto) Eos # (Auto) Seg Neutrophils % Lymphocytes % (Manual) Monocytes % (Manual) Seg Neutrophils # Seg Neutrophils # Man Lymphocytes # (Manual) Monocytes # (Manual) D-Dimer Heparin Anti-Xa Level ABG pH POC ABG pCO2 POC ABG pO2 ABG pO2 ABG HCO3 ABG O2 Saturation ABG Base Excess ABG Hemoglobin ABG Oxyhemoglobin ABG Sodium ABG Potassium ABG Chloride ABG Glucose VBG pH Oxyhemoglobin Carboxyhemoglobin Sodium Potassium Chloride Carbon Dioxide 34 H BUN 33 H Creatinine Glucose 128 H POC Glucose 126 H 132 H Lactic Acid Calcium Phosphorus Magnesium Total Bilirubin AST ALT Ammonia Lactate Dehydrogenase Total Creatine Kinase CK-MB (CK-2) Troponin T C-Reactive Protein NT-Pro-B Natriuret Pep Total Protein Albumin Triglycerides TSH Arterial Blood Glucose Arterial Blood Ionized Calcium Urine pH Urine WBC (Auto) Urine Creatinine 10/30/20 10/30/20 10/31/20 16:59 23:19 04:00 WBC RBC Hgb Hct RDW Lymph % (Auto) Bibb % (Auto) Eos % (Auto) Lymph # (Auto) Bibb # (Auto) Eos # (Auto) Seg Neutrophils % Lymphocytes % (Manual) Monocytes % (Manual) Seg Neutrophils # Seg Neutrophils # Man Lymphocytes # (Manual) Monocytes # (Manual) D-Dimer Heparin Anti-Xa Level ABG pH POC ABG pCO2 POC ABG pO2 ABG pO2 ABG HCO3 ABG O2 Saturation ABG Base Excess ABG Hemoglobin ABG Oxyhemoglobin ABG Sodium ABG Potassium ABG Chloride ABG Glucose VBG pH Oxyhemoglobin Carboxyhemoglobin Sodium Potassium Chloride Carbon Dioxide 38 H BUN 32 H Creatinine Glucose 121 H POC Glucose 118 H 138 H Lactic Acid Calcium Phosphorus Magnesium Total Bilirubin AST ALT Ammonia Lactate Dehydrogenase Total Creatine Kinase CK-MB (CK-2) Troponin T C-Reactive Protein NT-Pro-B Natriuret Pep Total Protein Albumin Triglycerides TSH Arterial Blood Glucose Arterial Blood Ionized Calcium Urine pH Urine WBC (Auto) Urine Creatinine 10/31/20 10/31/20 10/31/20 05:13 11:09 16:17 WBC RBC Hgb Hct RDW Lymph % (Auto) Bibb % (Auto) Eos % (Auto) Lymph # (Auto) Bibb # (Auto) Eos # (Auto) Seg Neutrophils % Lymphocytes % (Manual) Monocytes % (Manual) Seg Neutrophils # Seg Neutrophils # Man Lymphocytes # (Manual) Monocytes # (Manual) D-Dimer Heparin Anti-Xa Level ABG pH POC ABG pCO2 71.1 H POC ABG pO2 67.4 L ABG pO2 ABG HCO3 ABG O2 Saturation ABG Base Excess ABG Hemoglobin 10.9 L ABG Oxyhemoglobin 90.7 L ABG Sodium ABG Potassium ABG Chloride ABG Glucose 134 H VBG pH Oxyhemoglobin Carboxyhemoglobin Sodium Potassium Chloride Carbon Dioxide BUN Creatinine Glucose POC Glucose 110 H 138 H Lactic Acid Calcium Phosphorus Magnesium Total Bilirubin AST ALT Ammonia Lactate Dehydrogenase Total Creatine Kinase CK-MB (CK-2) Troponin T C-Reactive Protein NT-Pro-B Natriuret Pep Total Protein Albumin Triglycerides TSH Arterial Blood Glucose 134 H Arterial Blood Ionized Calcium Urine pH Urine WBC (Auto) Urine Creatinine 10/31/20 10/31/20 11/01/20 18:16 23:56 04:09 WBC 11.3 H RBC 3.05 L Hgb 9.0 L Hct 27.3 L RDW Lymph % (Auto) Bibb % (Auto) Eos % (Auto) Lymph # (Auto) Bibb # (Auto) Eos # (Auto) Seg Neutrophils % Lymphocytes % (Manual) Monocytes % (Manual) Seg Neutrophils # Seg Neutrophils # Man Lymphocytes # (Manual) Monocytes # (Manual) D-Dimer Heparin Anti-Xa Level ABG pH POC ABG pCO2 POC ABG pO2 ABG pO2 ABG HCO3 ABG O2 Saturation ABG Base Excess ABG Hemoglobin ABG Oxyhemoglobin ABG Sodium ABG Potassium ABG Chloride ABG Glucose VBG pH Oxyhemoglobin Carboxyhemoglobin Sodium Potassium Chloride Carbon Dioxide BUN Creatinine Glucose POC Glucose 135 H 122 H Lactic Acid Calcium Phosphorus Magnesium Total Bilirubin AST ALT Ammonia Lactate Dehydrogenase Total Creatine Kinase CK-MB (CK-2) Troponin T C-Reactive Protein NT-Pro-B Natriuret Pep Total Protein Albumin Triglycerides TSH Arterial Blood Glucose Arterial Blood Ionized Calcium Urine pH Urine WBC (Auto) Urine Creatinine 11/01/20 11/01/20 11/01/20 05:10 11:51 17:17 WBC RBC Hgb Hct RDW Lymph % (Auto) Bibb % (Auto) Eos % (Auto) Lymph # (Auto) Bibb # (Auto) Eos # (Auto) Seg Neutrophils % Lymphocytes % (Manual) Monocytes % (Manual) Seg Neutrophils # Seg Neutrophils # Man Lymphocytes # (Manual) Monocytes # (Manual) D-Dimer Heparin Anti-Xa Level ABG pH POC ABG pCO2 POC ABG pO2 ABG pO2 ABG HCO3 ABG O2 Saturation ABG Base Excess ABG Hemoglobin ABG Oxyhemoglobin ABG Sodium ABG Potassium ABG Chloride ABG Glucose VBG pH Oxyhemoglobin Carboxyhemoglobin Sodium Potassium Chloride Carbon Dioxide BUN Creatinine Glucose POC Glucose 123 H 123 H 120 H Lactic Acid Calcium Phosphorus Magnesium Total Bilirubin AST ALT Ammonia Lactate Dehydrogenase Total Creatine Kinase CK-MB (CK-2) Troponin T C-Reactive Protein NT-Pro-B Natriuret Pep Total Protein Albumin Triglycerides TSH Arterial Blood Glucose Arterial Blood Ionized Calcium Urine pH Urine WBC (Auto) Urine Creatinine 11/02/20 11/02/20 11/02/20 03:14 05:37 05:37 WBC RBC Hgb 9.8 L Hct 29.5 L RDW Lymph % (Auto) Bibb % (Auto) Eos % (Auto) Lymph # (Auto) Bibb # (Auto) Eos # (Auto) Seg Neutrophils % Lymphocytes % (Manual) Monocytes % (Manual) Seg Neutrophils # Seg Neutrophils # Man Lymphocytes # (Manual) Monocytes # (Manual) D-Dimer Heparin Anti-Xa Level ABG pH POC ABG pCO2 58.9 H POC ABG pO2 79.9 L ABG pO2 ABG HCO3 ABG O2 Saturation ABG Base Excess ABG Hemoglobin 10.6 L ABG Oxyhemoglobin ABG Sodium ABG Potassium ABG Chloride ABG Glucose 110 H VBG pH Oxyhemoglobin Carboxyhemoglobin Sodium Potassium Chloride Carbon Dioxide 37 H BUN 28 H Creatinine Glucose 106 H POC Glucose Lactic Acid Calcium Phosphorus Magnesium Total Bilirubin AST ALT Ammonia Lactate Dehydrogenase Total Creatine Kinase CK-MB (CK-2) Troponin T C-Reactive Protein NT-Pro-B Natriuret Pep Total Protein Albumin Triglycerides TSH Arterial Blood Glucose 110 H Arterial Blood Ionized Calcium Urine pH Urine WBC (Auto) Urine Creatinine 11/02/20 11/03/20 11/03/20 23:29 04:45 04:45 WBC 11.8 H RBC 3.07 L Hgb 9.0 L Hct 27.2 L RDW Lymph % (Auto) 11.4 L Bibb % (Auto) 9.5 H Eos % (Auto) Lymph # (Auto) Bibb # (Auto) 1.1 H Eos # (Auto) Seg Neutrophils % 75.9 H Lymphocytes % (Manual) Monocytes % (Manual) Seg Neutrophils # 9.0 H Seg Neutrophils # Man Lymphocytes # (Manual) Monocytes # (Manual) D-Dimer Heparin Anti-Xa Level ABG pH POC ABG pCO2 POC ABG pO2 ABG pO2 ABG HCO3 ABG O2 Saturation ABG Base Excess ABG Hemoglobin ABG Oxyhemoglobin ABG Sodium ABG Potassium ABG Chloride ABG Glucose VBG pH Oxyhemoglobin Carboxyhemoglobin Sodium 146 H Potassium Chloride Carbon Dioxide 39 H BUN 26 H Creatinine Glucose POC Glucose 129 H Lactic Acid Calcium Phosphorus Magnesium Total Bilirubin AST ALT Ammonia Lactate Dehydrogenase Total Creatine Kinase CK-MB (CK-2) Troponin T C-Reactive Protein NT-Pro-B Natriuret Pep Total Protein Albumin Triglycerides TSH Arterial Blood Glucose Arterial Blood Ionized Calcium Urine pH Urine WBC (Auto) Urine Creatinine 11/03/20 11/03/20 11/03/20 05:05 11:51 17:43 WBC RBC Hgb Hct RDW Lymph % (Auto) Bibb % (Auto) Eos % (Auto) Lymph # (Auto) Bibb # (Auto) Eos # (Auto) Seg Neutrophils % Lymphocytes % (Manual) Monocytes % (Manual) Seg Neutrophils # Seg Neutrophils # Man Lymphocytes # (Manual) Monocytes # (Manual) D-Dimer Heparin Anti-Xa Level ABG pH 7.452 H POC ABG pCO2 55.4 H POC ABG pO2 129.1 H ABG pO2 ABG HCO3 ABG O2 Saturation ABG Base Excess ABG Hemoglobin 9.3 L ABG Oxyhemoglobin ABG Sodium ABG Potassium ABG Chloride ABG Glucose 99 H VBG pH Oxyhemoglobin Carboxyhemoglobin 1.7 H Sodium Potassium Chloride Carbon Dioxide BUN Creatinine Glucose POC Glucose 131 H 125 H Lactic Acid Calcium Phosphorus Magnesium Total Bilirubin AST ALT Ammonia Lactate Dehydrogenase Total Creatine Kinase CK-MB (CK-2) Troponin T C-Reactive Protein NT-Pro-B Natriuret Pep Total Protein Albumin Triglycerides TSH Arterial Blood Glucose 99 H Arterial Blood Ionized Calcium Urine pH Urine WBC (Auto) Urine Creatinine 11/03/20 11/04/20 11/04/20 23:27 04:00 05:10 WBC RBC Hgb Hct RDW Lymph % (Auto) Bibb % (Auto) Eos % (Auto) Lymph # (Auto) Bibb # (Auto) Eos # (Auto) Seg Neutrophils % Lymphocytes % (Manual) Monocytes % (Manual) Seg Neutrophils # Seg Neutrophils # Man Lymphocytes # (Manual) Monocytes # (Manual) D-Dimer Heparin Anti-Xa Level ABG pH POC ABG pCO2 POC ABG pO2 ABG pO2 ABG HCO3 ABG O2 Saturation ABG Base Excess ABG Hemoglobin ABG Oxyhemoglobin ABG Sodium ABG Potassium ABG Chloride ABG Glucose VBG pH Oxyhemoglobin Carboxyhemoglobin Sodium Potassium Chloride 95.2 L Carbon Dioxide 40 H BUN 26 H Creatinine Glucose 128 H POC Glucose 148 H 126 H Lactic Acid Calcium Phosphorus Magnesium Total Bilirubin AST ALT Ammonia Lactate Dehydrogenase Total Creatine Kinase CK-MB (CK-2) Troponin T C-Reactive Protein NT-Pro-B Natriuret Pep Total Protein Albumin Triglycerides TSH Arterial Blood Glucose Arterial Blood Ionized Calcium Urine pH Urine WBC (Auto) Urine Creatinine 11/04/20 11/04/20 11/04/20 11:39 18:00 21:18 WBC RBC Hgb Hct RDW Lymph % (Auto) Bibb % (Auto) Eos % (Auto) Lymph # (Auto) Bibb # (Auto) Eos # (Auto) Seg Neutrophils % Lymphocytes % (Manual) Monocytes % (Manual) Seg Neutrophils # Seg Neutrophils # Man Lymphocytes # (Manual) Monocytes # (Manual) D-Dimer Heparin Anti-Xa Level ABG pH 7.511 H POC ABG pCO2 49.0 H POC ABG pO2 ABG pO2 ABG HCO3 ABG O2 Saturation ABG Base Excess ABG Hemoglobin 9.5 L ABG Oxyhemoglobin ABG Sodium 135.7 L ABG Potassium ABG Chloride ABG Glucose 152 H VBG pH Oxyhemoglobin Carboxyhemoglobin Sodium Potassium Chloride Carbon Dioxide BUN Creatinine Glucose POC Glucose 142 H 130 H Lactic Acid Calcium Phosphorus Magnesium Total Bilirubin AST ALT Ammonia Lactate Dehydrogenase Total Creatine Kinase CK-MB (CK-2) Troponin T C-Reactive Protein NT-Pro-B Natriuret Pep Total Protein Albumin Triglycerides TSH Arterial Blood Glucose 152 H Arterial Blood Ionized Calcium 4.3 L Urine pH Urine WBC (Auto) Urine Creatinine 11/04/20 11/05/20 11/05/20 23:19 03:30 03:30 WBC RBC 3.02 L Hgb 9.1 L Hct 26.7 L RDW Lymph % (Auto) Bibb % (Auto) Eos % (Auto) Lymph # (Auto) Bibb # (Auto) Eos # (Auto) Seg Neutrophils % Lymphocytes % (Manual) Monocytes % (Manual) Seg Neutrophils # Seg Neutrophils # Man Lymphocytes # (Manual) Monocytes # (Manual) D-Dimer Heparin Anti-Xa Level ABG pH POC ABG pCO2 POC ABG pO2 ABG pO2 ABG HCO3 ABG O2 Saturation ABG Base Excess ABG Hemoglobin ABG Oxyhemoglobin ABG Sodium ABG Potassium ABG Chloride ABG Glucose VBG pH Oxyhemoglobin Carboxyhemoglobin Sodium Potassium Chloride 93.6 L Carbon Dioxide 40 H BUN 24 H Creatinine Glucose 121 H POC Glucose 126 H Lactic Acid Calcium Phosphorus Magnesium Total Bilirubin AST ALT Ammonia Lactate Dehydrogenase Total Creatine Kinase CK-MB (CK-2) Troponin T C-Reactive Protein NT-Pro-B Natriuret Pep Total Protein Albumin Triglycerides TSH Arterial Blood Glucose Arterial Blood Ionized Calcium Urine pH Urine WBC (Auto) Urine Creatinine 11/05/20 11/05/20 11/05/20 05:24 11:37 17:37 WBC RBC Hgb Hct RDW Lymph % (Auto) Bibb % (Auto) Eos % (Auto) Lymph # (Auto) Bibb # (Auto) Eos # (Auto) Seg Neutrophils % Lymphocytes % (Manual) Monocytes % (Manual) Seg Neutrophils # Seg Neutrophils # Man Lymphocytes # (Manual) Monocytes # (Manual) D-Dimer Heparin Anti-Xa Level ABG pH POC ABG pCO2 POC ABG pO2 ABG pO2 ABG HCO3 ABG O2 Saturation ABG Base Excess ABG Hemoglobin ABG Oxyhemoglobin ABG Sodium ABG Potassium ABG Chloride ABG Glucose VBG pH Oxyhemoglobin Carboxyhemoglobin Sodium Potassium Chloride Carbon Dioxide BUN Creatinine Glucose POC Glucose 124 H 125 H 153 H Lactic Acid Calcium Phosphorus Magnesium Total Bilirubin AST ALT Ammonia Lactate Dehydrogenase Total Creatine Kinase CK-MB (CK-2) Troponin T C-Reactive Protein NT-Pro-B Natriuret Pep Total Protein Albumin Triglycerides TSH Arterial Blood Glucose Arterial Blood Ionized Calcium Urine pH Urine WBC (Auto) Urine Creatinine 11/05/20 11/06/20 11/06/20 23:20 05:24 12:17 WBC RBC Hgb Hct RDW Lymph % (Auto) Bibb % (Auto) Eos % (Auto) Lymph # (Auto) Bibb # (Auto) Eos # (Auto) Seg Neutrophils % Lymphocytes % (Manual) Monocytes % (Manual) Seg Neutrophils # Seg Neutrophils # Man Lymphocytes # (Manual) Monocytes # (Manual) D-Dimer Heparin Anti-Xa Level ABG pH POC ABG pCO2 POC ABG pO2 ABG pO2 ABG HCO3 ABG O2 Saturation ABG Base Excess ABG Hemoglobin ABG Oxyhemoglobin ABG Sodium ABG Potassium ABG Chloride ABG Glucose VBG pH Oxyhemoglobin Carboxyhemoglobin Sodium Potassium Chloride Carbon Dioxide BUN Creatinine Glucose POC Glucose 133 H 143 H 139 H Lactic Acid Calcium Phosphorus Magnesium Total Bilirubin AST ALT Ammonia Lactate Dehydrogenase Total Creatine Kinase CK-MB (CK-2) Troponin T C-Reactive Protein NT-Pro-B Natriuret Pep Total Protein Albumin Triglycerides TSH Arterial Blood Glucose Arterial Blood Ionized Calcium Urine pH Urine WBC (Auto) Urine Creatinine 11/06/20 11/06/20 11/07/20 17:38 23:26 04:50 WBC RBC 3.24 L Hgb 9.6 L Hct 29.0 L RDW Lymph % (Auto) Bibb % (Auto) 10.3 H Eos % (Auto) 6.9 H Lymph # (Auto) Bibb # (Auto) Eos # (Auto) 0.5 H Seg Neutrophils % Lymphocytes % (Manual) Monocytes % (Manual) Seg Neutrophils # Seg Neutrophils # Man Lymphocytes # (Manual) Monocytes # (Manual) D-Dimer Heparin Anti-Xa Level ABG pH POC ABG pCO2 POC ABG pO2 ABG pO2 ABG HCO3 ABG O2 Saturation ABG Base Excess ABG Hemoglobin ABG Oxyhemoglobin ABG Sodium ABG Potassium ABG Chloride ABG Glucose VBG pH Oxyhemoglobin Carboxyhemoglobin Sodium Potassium Chloride Carbon Dioxide BUN Creatinine Glucose POC Glucose 139 H 117 H Lactic Acid Calcium Phosphorus Magnesium Total Bilirubin AST ALT Ammonia Lactate Dehydrogenase Total Creatine Kinase CK-MB (CK-2) Troponin T C-Reactive Protein NT-Pro-B Natriuret Pep Total Protein Albumin Triglycerides TSH Arterial Blood Glucose Arterial Blood Ionized Calcium Urine pH Urine WBC (Auto) Urine Creatinine 11/07/20 11/07/20 11/07/20 04:50 05:10 12:22 WBC RBC Hgb Hct RDW Lymph % (Auto) Bibb % (Auto) Eos % (Auto) Lymph # (Auto) Bibb # (Auto) Eos # (Auto) Seg Neutrophils % Lymphocytes % (Manual) Monocytes % (Manual) Seg Neutrophils # Seg Neutrophils # Man Lymphocytes # (Manual) Monocytes # (Manual) D-Dimer Heparin Anti-Xa Level ABG pH POC ABG pCO2 POC ABG pO2 ABG pO2 ABG HCO3 ABG O2 Saturation ABG Base Excess ABG Hemoglobin ABG Oxyhemoglobin ABG Sodium ABG Potassium ABG Chloride ABG Glucose VBG pH Oxyhemoglobin Carboxyhemoglobin Sodium Potassium Chloride 97.2 L Carbon Dioxide 36 H BUN 25 H Creatinine Glucose 130 H POC Glucose 115 H 118 H Lactic Acid Calcium Phosphorus Magnesium Total Bilirubin AST ALT Ammonia Lactate Dehydrogenase Total Creatine Kinase CK-MB (CK-2) Troponin T C-Reactive Protein NT-Pro-B Natriuret Pep Total Protein Albumin Triglycerides TSH Arterial Blood Glucose Arterial Blood Ionized Calcium Urine pH Urine WBC (Auto) Urine Creatinine 11/07/20 11/07/20 11/08/20 17:46 23:53 07:16 WBC RBC Hgb Hct RDW Lymph % (Auto) Bibb % (Auto) Eos % (Auto) Lymph # (Auto) Bibb # (Auto) Eos # (Auto) Seg Neutrophils % Lymphocytes % (Manual) Monocytes % (Manual) Seg Neutrophils # Seg Neutrophils # Man Lymphocytes # (Manual) Monocytes # (Manual) D-Dimer Heparin Anti-Xa Level ABG pH POC ABG pCO2 POC ABG pO2 ABG pO2 ABG HCO3 ABG O2 Saturation ABG Base Excess ABG Hemoglobin ABG Oxyhemoglobin ABG Sodium ABG Potassium ABG Chloride ABG Glucose VBG pH Oxyhemoglobin Carboxyhemoglobin Sodium Potassium Chloride Carbon Dioxide BUN Creatinine Glucose POC Glucose 150 H 141 H 134 H Lactic Acid Calcium Phosphorus Magnesium Total Bilirubin AST ALT Ammonia Lactate Dehydrogenase Total Creatine Kinase CK-MB (CK-2) Troponin T C-Reactive Protein NT-Pro-B Natriuret Pep Total Protein Albumin Triglycerides TSH Arterial Blood Glucose Arterial Blood Ionized Calcium Urine pH Urine WBC (Auto) Urine Creatinine 11/08/20 11/08/20 11/08/20 11:35 17:59 23:50 WBC RBC Hgb Hct RDW Lymph % (Auto) Bibb % (Auto) Eos % (Auto) Lymph # (Auto) Bibb # (Auto) Eos # (Auto) Seg Neutrophils % Lymphocytes % (Manual) Monocytes % (Manual) Seg Neutrophils # Seg Neutrophils # Man Lymphocytes # (Manual) Monocytes # (Manual) D-Dimer Heparin Anti-Xa Level ABG pH POC ABG pCO2 POC ABG pO2 ABG pO2 ABG HCO3 ABG O2 Saturation ABG Base Excess ABG Hemoglobin ABG Oxyhemoglobin ABG Sodium ABG Potassium ABG Chloride ABG Glucose VBG pH Oxyhemoglobin Carboxyhemoglobin Sodium Potassium Chloride Carbon Dioxide BUN Creatinine Glucose POC Glucose 148 H 118 H 131 H Lactic Acid Calcium Phosphorus Magnesium Total Bilirubin AST ALT Ammonia Lactate Dehydrogenase Total Creatine Kinase CK-MB (CK-2) Troponin T C-Reactive Protein NT-Pro-B Natriuret Pep Total Protein Albumin Triglycerides TSH Arterial Blood Glucose Arterial Blood Ionized Calcium Urine pH Urine WBC (Auto) Urine Creatinine 11/09/20 11/09/20 11/09/20 12:07 17:00 23:45 WBC RBC Hgb Hct RDW Lymph % (Auto) Bibb % (Auto) Eos % (Auto) Lymph # (Auto) Bibb # (Auto) Eos # (Auto) Seg Neutrophils % Lymphocytes % (Manual) Monocytes % (Manual) Seg Neutrophils # Seg Neutrophils # Man Lymphocytes # (Manual) Monocytes # (Manual) D-Dimer Heparin Anti-Xa Level ABG pH POC ABG pCO2 POC ABG pO2 ABG pO2 ABG HCO3 ABG O2 Saturation ABG Base Excess ABG Hemoglobin ABG Oxyhemoglobin ABG Sodium ABG Potassium ABG Chloride ABG Glucose VBG pH Oxyhemoglobin Carboxyhemoglobin Sodium Potassium Chloride Carbon Dioxide BUN Creatinine Glucose POC Glucose 133 H 126 H 129 H Lactic Acid Calcium Phosphorus Magnesium Total Bilirubin AST ALT Ammonia Lactate Dehydrogenase Total Creatine Kinase CK-MB (CK-2) Troponin T C-Reactive Protein NT-Pro-B Natriuret Pep Total Protein Albumin Triglycerides TSH Arterial Blood Glucose Arterial Blood Ionized Calcium Urine pH Urine WBC (Auto) Urine Creatinine 11/10/20 11/10/20 11/10/20 05:43 11:47 17:56 WBC RBC Hgb Hct RDW Lymph % (Auto) Bibb % (Auto) Eos % (Auto) Lymph # (Auto) Bibb # (Auto) Eos # (Auto) Seg Neutrophils % Lymphocytes % (Manual) Monocytes % (Manual) Seg Neutrophils # Seg Neutrophils # Man Lymphocytes # (Manual) Monocytes # (Manual) D-Dimer Heparin Anti-Xa Level ABG pH POC ABG pCO2 POC ABG pO2 ABG pO2 ABG HCO3 ABG O2 Saturation ABG Base Excess ABG Hemoglobin ABG Oxyhemoglobin ABG Sodium ABG Potassium ABG Chloride ABG Glucose VBG pH Oxyhemoglobin Carboxyhemoglobin Sodium Potassium Chloride Carbon Dioxide BUN Creatinine Glucose POC Glucose 111 H 136 H 110 H Lactic Acid Calcium Phosphorus Magnesium Total Bilirubin AST ALT Ammonia Lactate Dehydrogenase Total Creatine Kinase CK-MB (CK-2) Troponin T C-Reactive Protein NT-Pro-B Natriuret Pep Total Protein Albumin Triglycerides TSH Arterial Blood Glucose Arterial Blood Ionized Calcium Urine pH Urine WBC (Auto) Urine Creatinine 11/10/20 11/11/20 11/11/20 23:34 03:11 05:22 WBC RBC Hgb Hct RDW Lymph % (Auto) Bibb % (Auto) Eos % (Auto) Lymph # (Auto) Bibb # (Auto) Eos # (Auto) Seg Neutrophils % Lymphocytes % (Manual) Monocytes % (Manual) Seg Neutrophils # Seg Neutrophils # Man Lymphocytes # (Manual) Monocytes # (Manual) D-Dimer Heparin Anti-Xa Level ABG pH POC ABG pCO2 64.5 H POC ABG pO2 ABG pO2 ABG HCO3 ABG O2 Saturation ABG Base Excess ABG Hemoglobin 9.7 L ABG Oxyhemoglobin ABG Sodium ABG Potassium 5.0 H ABG Chloride ABG Glucose 148 H VBG pH Oxyhemoglobin Carboxyhemoglobin Sodium Potassium Chloride Carbon Dioxide BUN Creatinine Glucose POC Glucose 134 H 132 H Lactic Acid Calcium Phosphorus Magnesium Total Bilirubin AST ALT Ammonia Lactate Dehydrogenase Total Creatine Kinase CK-MB (CK-2) Troponin T C-Reactive Protein NT-Pro-B Natriuret Pep Total Protein Albumin Triglycerides TSH Arterial Blood Glucose 148 H Arterial Blood Ionized Calcium Urine pH Urine WBC (Auto) Urine Creatinine 11/11/20 11/11/20 11/11/20 08:38 11:00 12:01 WBC RBC 2.79 L Hgb 8.4 L Hct 25.4 L RDW Lymph % (Auto) Bibb % (Auto) Eos % (Auto) Lymph # (Auto) Bibb # (Auto) Eos # (Auto) Seg Neutrophils % Lymphocytes % (Manual) Monocytes % (Manual) Seg Neutrophils # Seg Neutrophils # Man Lymphocytes # (Manual) Monocytes # (Manual) D-Dimer Heparin Anti-Xa Level ABG pH POC ABG pCO2 POC ABG pO2 ABG pO2 ABG HCO3 ABG O2 Saturation ABG Base Excess ABG Hemoglobin ABG Oxyhemoglobin ABG Sodium ABG Potassium ABG Chloride ABG Glucose VBG pH Oxyhemoglobin Carboxyhemoglobin Sodium 136 L Potassium Chloride 97.6 L Carbon Dioxide 35 H BUN 26 H Creatinine Glucose 133 H POC Glucose 142 H Lactic Acid Calcium 8.0 L Phosphorus Magnesium Total Bilirubin AST ALT Ammonia Lactate Dehydrogenase Total Creatine Kinase CK-MB (CK-2) Troponin T C-Reactive Protein NT-Pro-B Natriuret Pep Total Protein Albumin Triglycerides TSH Arterial Blood Glucose Arterial Blood Ionized Calcium Urine pH Urine WBC (Auto) Urine Creatinine 11/11/20 11/12/20 11/12/20 23:12 05:31 07:41 WBC RBC Hgb Hct RDW Lymph % (Auto) Bibb % (Auto) Eos % (Auto) Lymph # (Auto) Bibb # (Auto) Eos # (Auto) Seg Neutrophils % Lymphocytes % (Manual) Monocytes % (Manual) Seg Neutrophils # Seg Neutrophils # Man Lymphocytes # (Manual) Monocytes # (Manual) D-Dimer Heparin Anti-Xa Level ABG pH POC ABG pCO2 POC ABG pO2 ABG pO2 ABG HCO3 ABG O2 Saturation ABG Base Excess ABG Hemoglobin ABG Oxyhemoglobin ABG Sodium ABG Potassium ABG Chloride ABG Glucose VBG pH Oxyhemoglobin Carboxyhemoglobin Sodium Potassium Chloride Carbon Dioxide BUN Creatinine Glucose POC Glucose 127 H 117 H 137 H Lactic Acid Calcium Phosphorus Magnesium Total Bilirubin AST ALT Ammonia Lactate Dehydrogenase Total Creatine Kinase CK-MB (CK-2) Troponin T C-Reactive Protein NT-Pro-B Natriuret Pep Total Protein Albumin Triglycerides TSH Arterial Blood Glucose Arterial Blood Ionized Calcium Urine pH Urine WBC (Auto) Urine Creatinine 11/12/20 11/12/20 11/12/20 11:26 15:29 21:30 WBC RBC Hgb Hct RDW Lymph % (Auto) Bibb % (Auto) Eos % (Auto) Lymph # (Auto) Bibb # (Auto) Eos # (Auto) Seg Neutrophils % Lymphocytes % (Manual) Monocytes % (Manual) Seg Neutrophils # Seg Neutrophils # Man Lymphocytes # (Manual) Monocytes # (Manual) D-Dimer Heparin Anti-Xa Level ABG pH POC ABG pCO2 POC ABG pO2 ABG pO2 ABG HCO3 ABG O2 Saturation ABG Base Excess ABG Hemoglobin ABG Oxyhemoglobin ABG Sodium ABG Potassium ABG Chloride ABG Glucose VBG pH Oxyhemoglobin Carboxyhemoglobin Sodium Potassium Chloride Carbon Dioxide BUN Creatinine Glucose POC Glucose 130 H 146 H 123 H Lactic Acid Calcium Phosphorus Magnesium Total Bilirubin AST ALT Ammonia Lactate Dehydrogenase Total Creatine Kinase CK-MB (CK-2) Troponin T C-Reactive Protein NT-Pro-B Natriuret Pep Total Protein Albumin Triglycerides TSH Arterial Blood Glucose Arterial Blood Ionized Calcium Urine pH Urine WBC (Auto) Urine Creatinine 11/13/20 11/13/20 11/13/20 05:52 07:37 15:34 WBC RBC Hgb Hct RDW Lymph % (Auto) Bibb % (Auto) Eos % (Auto) Lymph # (Auto) Bibb # (Auto) Eos # (Auto) Seg Neutrophils % Lymphocytes % (Manual) Monocytes % (Manual) Seg Neutrophils # Seg Neutrophils # Man Lymphocytes # (Manual) Monocytes # (Manual) D-Dimer Heparin Anti-Xa Level ABG pH POC ABG pCO2 POC ABG pO2 ABG pO2 ABG HCO3 ABG O2 Saturation ABG Base Excess ABG Hemoglobin ABG Oxyhemoglobin ABG Sodium ABG Potassium ABG Chloride ABG Glucose VBG pH Oxyhemoglobin Carboxyhemoglobin Sodium Potassium Chloride Carbon Dioxide BUN Creatinine Glucose POC Glucose 142 H 109 H 127 H Lactic Acid Calcium Phosphorus Magnesium Total Bilirubin AST ALT Ammonia Lactate Dehydrogenase Total Creatine Kinase CK-MB (CK-2) Troponin T C-Reactive Protein NT-Pro-B Natriuret Pep Total Protein Albumin Triglycerides TSH Arterial Blood Glucose Arterial Blood Ionized Calcium Urine pH Urine WBC (Auto) Urine Creatinine 11/13/20 11/13/20 11/13/20 16:43 16:52 21:18 WBC RBC Hgb Hct RDW Lymph % (Auto) Bibb % (Auto) Eos % (Auto) Lymph # (Auto) Bibb # (Auto) Eos # (Auto) Seg Neutrophils % Lymphocytes % (Manual) Monocytes % (Manual) Seg Neutrophils # Seg Neutrophils # Man Lymphocytes # (Manual) Monocytes # (Manual) D-Dimer Heparin Anti-Xa Level ABG pH POC ABG pCO2 68.4 H POC ABG pO2 ABG pO2 ABG HCO3 ABG O2 Saturation ABG Base Excess ABG Hemoglobin 10.0 L ABG Oxyhemoglobin ABG Sodium ABG Potassium ABG Chloride ABG Glucose 133 H VBG pH Oxyhemoglobin Carboxyhemoglobin Sodium Potassium Chloride Carbon Dioxide BUN Creatinine Glucose POC Glucose 111 H 108 H Lactic Acid Calcium Phosphorus Magnesium Total Bilirubin AST ALT Ammonia Lactate Dehydrogenase Total Creatine Kinase CK-MB (CK-2) Troponin T C-Reactive Protein NT-Pro-B Natriuret Pep Total Protein Albumin Triglycerides TSH Arterial Blood Glucose 133 H Arterial Blood Ionized Calcium Urine pH Urine WBC (Auto) Urine Creatinine 11/14/20 11/14/20 11/14/20 12:07 18:16 23:21 WBC RBC Hgb Hct RDW Lymph % (Auto) Bibb % (Auto) Eos % (Auto) Lymph # (Auto) Bibb # (Auto) Eos # (Auto) Seg Neutrophils % Lymphocytes % (Manual) Monocytes % (Manual) Seg Neutrophils # Seg Neutrophils # Man Lymphocytes # (Manual) Monocytes # (Manual) D-Dimer Heparin Anti-Xa Level ABG pH POC ABG pCO2 POC ABG pO2 ABG pO2 ABG HCO3 ABG O2 Saturation ABG Base Excess ABG Hemoglobin ABG Oxyhemoglobin ABG Sodium ABG Potassium ABG Chloride ABG Glucose VBG pH Oxyhemoglobin Carboxyhemoglobin Sodium Potassium Chloride Carbon Dioxide BUN Creatinine Glucose POC Glucose 107 H 109 H 114 H Lactic Acid Calcium Phosphorus Magnesium Total Bilirubin AST ALT Ammonia Lactate Dehydrogenase Total Creatine Kinase CK-MB (CK-2) Troponin T C-Reactive Protein NT-Pro-B Natriuret Pep Total Protein Albumin Triglycerides TSH Arterial Blood Glucose Arterial Blood Ionized Calcium Urine pH Urine WBC (Auto) Urine Creatinine 11/15/20 11/15/20 11/15/20 11:14 16:11 23:57 WBC RBC Hgb Hct RDW Lymph % (Auto) Bibb % (Auto) Eos % (Auto) Lymph # (Auto) Bibb # (Auto) Eos # (Auto) Seg Neutrophils % Lymphocytes % (Manual) Monocytes % (Manual) Seg Neutrophils # Seg Neutrophils # Man Lymphocytes # (Manual) Monocytes # (Manual) D-Dimer Heparin Anti-Xa Level ABG pH POC ABG pCO2 POC ABG pO2 ABG pO2 ABG HCO3 ABG O2 Saturation ABG Base Excess ABG Hemoglobin ABG Oxyhemoglobin ABG Sodium ABG Potassium ABG Chloride ABG Glucose VBG pH Oxyhemoglobin Carboxyhemoglobin Sodium Potassium Chloride Carbon Dioxide BUN Creatinine Glucose POC Glucose 126 H 135 H 128 H Lactic Acid Calcium Phosphorus Magnesium Total Bilirubin AST ALT Ammonia Lactate Dehydrogenase Total Creatine Kinase CK-MB (CK-2) Troponin T C-Reactive Protein NT-Pro-B Natriuret Pep Total Protein Albumin Triglycerides TSH Arterial Blood Glucose Arterial Blood Ionized Calcium Urine pH Urine WBC (Auto) Urine Creatinine 11/16/20 11/16/20 11/16/20 12:16 17:15 23:34 WBC RBC Hgb Hct RDW Lymph % (Auto) Bibb % (Auto) Eos % (Auto) Lymph # (Auto) Bibb # (Auto) Eos # (Auto) Seg Neutrophils % Lymphocytes % (Manual) Monocytes % (Manual) Seg Neutrophils # Seg Neutrophils # Man Lymphocytes # (Manual) Monocytes # (Manual) D-Dimer Heparin Anti-Xa Level ABG pH POC ABG pCO2 POC ABG pO2 ABG pO2 ABG HCO3 ABG O2 Saturation ABG Base Excess ABG Hemoglobin ABG Oxyhemoglobin ABG Sodium ABG Potassium ABG Chloride ABG Glucose VBG pH Oxyhemoglobin Carboxyhemoglobin Sodium Potassium Chloride Carbon Dioxide BUN Creatinine Glucose POC Glucose 138 H 128 H 146 H Lactic Acid Calcium Phosphorus Magnesium Total Bilirubin AST ALT Ammonia Lactate Dehydrogenase Total Creatine Kinase CK-MB (CK-2) Troponin T C-Reactive Protein NT-Pro-B Natriuret Pep Total Protein Albumin Triglycerides TSH Arterial Blood Glucose Arterial Blood Ionized Calcium Urine pH Urine WBC (Auto) Urine Creatinine 11/17/20 11/17/20 11/17/20 03:48 03:48 05:43 WBC RBC 3.07 L Hgb 9.2 L Hct 28.0 L RDW 15.7 H Lymph % (Auto) Bibb % (Auto) 12.4 H Eos % (Auto) 6.9 H Lymph # (Auto) 0.9 L Bibb # (Auto) Eos # (Auto) 0.5 H Seg Neutrophils % Lymphocytes % (Manual) Monocytes % (Manual) Seg Neutrophils # Seg Neutrophils # Man Lymphocytes # (Manual) Monocytes # (Manual) D-Dimer Heparin Anti-Xa Level ABG pH POC ABG pCO2 POC ABG pO2 ABG pO2 ABG HCO3 ABG O2 Saturation ABG Base Excess ABG Hemoglobin ABG Oxyhemoglobin ABG Sodium ABG Potassium ABG Chloride ABG Glucose VBG pH Oxyhemoglobin Carboxyhemoglobin Sodium Potassium Chloride Carbon Dioxide 36 H BUN 24 H Creatinine Glucose 126 H POC Glucose 121 H Lactic Acid Calcium Phosphorus Magnesium Total Bilirubin AST ALT Ammonia Lactate Dehydrogenase Total Creatine Kinase CK-MB (CK-2) Troponin T C-Reactive Protein NT-Pro-B Natriuret Pep Total Protein Albumin 2.9 L Triglycerides TSH Arterial Blood Glucose Arterial Blood Ionized Calcium Urine pH Urine WBC (Auto) Urine Creatinine 11/17/20 11/17/20 11/17/20 12:24 17:45 23:46 WBC RBC Hgb Hct RDW Lymph % (Auto) Bibb % (Auto) Eos % (Auto) Lymph # (Auto) Bibb # (Auto) Eos # (Auto) Seg Neutrophils % Lymphocytes % (Manual) Monocytes % (Manual) Seg Neutrophils # Seg Neutrophils # Man Lymphocytes # (Manual) Monocytes # (Manual) D-Dimer Heparin Anti-Xa Level ABG pH POC ABG pCO2 POC ABG pO2 ABG pO2 ABG HCO3 ABG O2 Saturation ABG Base Excess ABG Hemoglobin ABG Oxyhemoglobin ABG Sodium ABG Potassium ABG Chloride ABG Glucose VBG pH Oxyhemoglobin Carboxyhemoglobin Sodium Potassium Chloride Carbon Dioxide BUN Creatinine Glucose POC Glucose 144 H 117 H 118 H Lactic Acid Calcium Phosphorus Magnesium Total Bilirubin AST ALT Ammonia Lactate Dehydrogenase Total Creatine Kinase CK-MB (CK-2) Troponin T C-Reactive Protein NT-Pro-B Natriuret Pep Total Protein Albumin Triglycerides TSH Arterial Blood Glucose Arterial Blood Ionized Calcium Urine pH Urine WBC (Auto) Urine Creatinine 11/18/20 11/18/20 11/18/20 05:20 05:20 05:34 WBC RBC 3.17 L Hgb 9.2 L Hct 28.8 L RDW 15.4 H Lymph % (Auto) 9.7 L Bibb % (Auto) 11.3 H Eos % (Auto) 5.3 H Lymph # (Auto) 0.7 L Bibb # (Auto) 0.9 H Eos # (Auto) Seg Neutrophils % 73.3 H Lymphocytes % (Manual) Monocytes % (Manual) Seg Neutrophils # Seg Neutrophils # Man Lymphocytes # (Manual) Monocytes # (Manual) D-Dimer Heparin Anti-Xa Level ABG pH POC ABG pCO2 POC ABG pO2 ABG pO2 ABG HCO3 ABG O2 Saturation ABG Base Excess ABG Hemoglobin ABG Oxyhemoglobin ABG Sodium ABG Potassium ABG Chloride ABG Glucose VBG pH Oxyhemoglobin Carboxyhemoglobin Sodium Potassium Chloride Carbon Dioxide 39 H BUN 22 H Creatinine Glucose 134 H POC Glucose 139 H Lactic Acid Calcium Phosphorus Magnesium Total Bilirubin AST ALT Ammonia Lactate Dehydrogenase Total Creatine Kinase CK-MB (CK-2) Troponin T C-Reactive Protein NT-Pro-B Natriuret Pep Total Protein Albumin 3.0 L Triglycerides TSH Arterial Blood Glucose Arterial Blood Ionized Calcium Urine pH Urine WBC (Auto) Urine Creatinine 11/18/20 11/18/20 11/18/20 11:20 13:44 16:46 WBC RBC Hgb Hct RDW Lymph % (Auto) Bibb % (Auto) Eos % (Auto) Lymph # (Auto) Bibb # (Auto) Eos # (Auto) Seg Neutrophils % Lymphocytes % (Manual) Monocytes % (Manual) Seg Neutrophils # Seg Neutrophils # Man Lymphocytes # (Manual) Monocytes # (Manual) D-Dimer Heparin Anti-Xa Level ABG pH POC ABG pCO2 POC ABG pO2 ABG pO2 ABG HCO3 ABG O2 Saturation ABG Base Excess ABG Hemoglobin ABG Oxyhemoglobin ABG Sodium ABG Potassium ABG Chloride ABG Glucose VBG pH Oxyhemoglobin Carboxyhemoglobin Sodium Potassium Chloride Carbon Dioxide BUN Creatinine Glucose POC Glucose 136 H 121 H Lactic Acid Calcium Phosphorus Magnesium Total Bilirubin AST ALT Ammonia Lactate Dehydrogenase Total Creatine Kinase CK-MB (CK-2) Troponin T C-Reactive Protein 4.40 H NT-Pro-B Natriuret Pep Total Protein Albumin Triglycerides TSH Arterial Blood Glucose Arterial Blood Ionized Calcium Urine pH Urine WBC (Auto) Urine Creatinine 11/18/20 11/19/20 11/19/20 23:47 04:18 04:18 WBC RBC 3.15 L Hgb 9.1 L Hct 28.7 L RDW 15.7 H Lymph % (Auto) Bibb % (Auto) 12.8 H Eos % (Auto) 5.0 H Lymph # (Auto) 1.1 L Bibb # (Auto) Eos # (Auto) Seg Neutrophils % Lymphocytes % (Manual) Monocytes % (Manual) Seg Neutrophils # Seg Neutrophils # Man Lymphocytes # (Manual) Monocytes # (Manual) D-Dimer Heparin Anti-Xa Level ABG pH POC ABG pCO2 POC ABG pO2 ABG pO2 ABG HCO3 ABG O2 Saturation ABG Base Excess ABG Hemoglobin ABG Oxyhemoglobin ABG Sodium ABG Potassium ABG Chloride ABG Glucose VBG pH Oxyhemoglobin Carboxyhemoglobin Sodium 146 H Potassium Chloride Carbon Dioxide 40 H BUN 23 H Creatinine Glucose 121 H POC Glucose 117 H Lactic Acid Calcium Phosphorus Magnesium Total Bilirubin AST ALT Ammonia Lactate Dehydrogenase Total Creatine Kinase CK-MB (CK-2) Troponin T C-Reactive Protein NT-Pro-B Natriuret Pep Total Protein Albumin 3.1 L Triglycerides TSH Arterial Blood Glucose Arterial Blood Ionized Calcium Urine pH Urine WBC (Auto) Urine Creatinine 11/19/20 11/19/20 11/19/20 05:41 10:31 12:00 WBC RBC Hgb Hct RDW Lymph % (Auto) Bibb % (Auto) Eos % (Auto) Lymph # (Auto) Bibb # (Auto) Eos # (Auto) Seg Neutrophils % Lymphocytes % (Manual) Monocytes % (Manual) Seg Neutrophils # Seg Neutrophils # Man Lymphocytes # (Manual) Monocytes # (Manual) D-Dimer Heparin Anti-Xa Level ABG pH POC ABG pCO2 POC ABG pO2 ABG pO2 ABG HCO3 ABG O2 Saturation ABG Base Excess ABG Hemoglobin ABG Oxyhemoglobin ABG Sodium ABG Potassium ABG Chloride ABG Glucose VBG pH Oxyhemoglobin Carboxyhemoglobin Sodium Potassium Chloride Carbon Dioxide BUN Creatinine Glucose POC Glucose 147 H 139 H 130 H Lactic Acid Calcium Phosphorus Magnesium Total Bilirubin AST ALT Ammonia Lactate Dehydrogenase Total Creatine Kinase CK-MB (CK-2) Troponin T C-Reactive Protein NT-Pro-B Natriuret Pep Total Protein Albumin Triglycerides TSH Arterial Blood Glucose Arterial Blood Ionized Calcium Urine pH Urine WBC (Auto) Urine Creatinine 11/19/20 11/19/20 11/20/20 17:40 23:39 04:55 WBC RBC Hgb Hct RDW Lymph % (Auto) Bibb % (Auto) Eos % (Auto) Lymph # (Auto) Bibb # (Auto) Eos # (Auto) Seg Neutrophils % Lymphocytes % (Manual) Monocytes % (Manual) Seg Neutrophils # Seg Neutrophils # Man Lymphocytes # (Manual) Monocytes # (Manual) D-Dimer Heparin Anti-Xa Level ABG pH POC ABG pCO2 POC ABG pO2 ABG pO2 ABG HCO3 ABG O2 Saturation ABG Base Excess ABG Hemoglobin ABG Oxyhemoglobin ABG Sodium ABG Potassium ABG Chloride ABG Glucose VBG pH Oxyhemoglobin Carboxyhemoglobin Sodium Potassium Chloride Carbon Dioxide BUN Creatinine Glucose POC Glucose 165 H 133 H 124 H Lactic Acid Calcium Phosphorus Magnesium Total Bilirubin AST ALT Ammonia Lactate Dehydrogenase Total Creatine Kinase CK-MB (CK-2) Troponin T C-Reactive Protein NT-Pro-B Natriuret Pep Total Protein Albumin Triglycerides TSH Arterial Blood Glucose Arterial Blood Ionized Calcium Urine pH Urine WBC (Auto) Urine Creatinine 11/20/20 11/20/20 11/20/20 07:30 07:30 11:46 WBC RBC 2.93 L Hgb 8.7 L Hct 27.0 L RDW 15.8 H Lymph % (Auto) 11.6 L Bibb % (Auto) 10.0 H Eos % (Auto) 4.4 H Lymph # (Auto) 0.9 L Bibb # (Auto) Eos # (Auto) Seg Neutrophils % 73.4 H Lymphocytes % (Manual) Monocytes % (Manual) Seg Neutrophils # Seg Neutrophils # Man Lymphocytes # (Manual) Monocytes # (Manual) D-Dimer Heparin Anti-Xa Level ABG pH POC ABG pCO2 POC ABG pO2 ABG pO2 ABG HCO3 ABG O2 Saturation ABG Base Excess ABG Hemoglobin ABG Oxyhemoglobin ABG Sodium ABG Potassium ABG Chloride ABG Glucose VBG pH Oxyhemoglobin Carboxyhemoglobin Sodium Potassium Chloride Carbon Dioxide 41 H* BUN 26 H Creatinine Glucose 139 H POC Glucose 141 H Lactic Acid Calcium Phosphorus Magnesium Total Bilirubin AST ALT Ammonia Lactate Dehydrogenase Total Creatine Kinase CK-MB (CK-2) Troponin T C-Reactive Protein NT-Pro-B Natriuret Pep Total Protein Albumin 2.8 L Triglycerides TSH Arterial Blood Glucose Arterial Blood Ionized Calcium Urine pH Urine WBC (Auto) Urine Creatinine 11/20/20 11/21/20 11/21/20 17:22 00:19 04:00 WBC RBC 2.84 L Hgb 8.3 L Hct 26.1 L RDW 15.8 H Lymph % (Auto) Bibb % (Auto) 11.2 H Eos % (Auto) Lymph # (Auto) 1.0 L Bibb # (Auto) Eos # (Auto) Seg Neutrophils % Lymphocytes % (Manual) Monocytes % (Manual) Seg Neutrophils # Seg Neutrophils # Man Lymphocytes # (Manual) Monocytes # (Manual) D-Dimer Heparin Anti-Xa Level ABG pH POC ABG pCO2 POC ABG pO2 ABG pO2 ABG HCO3 ABG O2 Saturation ABG Base Excess ABG Hemoglobin ABG Oxyhemoglobin ABG Sodium ABG Potassium ABG Chloride ABG Glucose VBG pH Oxyhemoglobin Carboxyhemoglobin Sodium Potassium Chloride Carbon Dioxide BUN Creatinine Glucose POC Glucose 126 H 126 H Lactic Acid Calcium Phosphorus Magnesium Total Bilirubin AST ALT Ammonia Lactate Dehydrogenase Total Creatine Kinase CK-MB (CK-2) Troponin T C-Reactive Protein NT-Pro-B Natriuret Pep Total Protein Albumin Triglycerides TSH Arterial Blood Glucose Arterial Blood Ionized Calcium Urine pH Urine WBC (Auto) Urine Creatinine 05/05/0411/21/20 11/21/20 04:00 11:18 17:15 WBC RBC Hgb Hct RDW Lymph % (Auto) Bibb % (Auto) Eos % (Auto) Lymph # (Auto) Bibb # (Auto) Eos # (Auto) Seg Neutrophils % Lymphocytes % (Manual) Monocytes % (Manual) Seg Neutrophils # Seg Neutrophils # Man Lymphocytes # (Manual) Monocytes # (Manual) D-Dimer Heparin Anti-Xa Level ABG pH POC ABG pCO2 POC ABG pO2 ABG pO2 ABG HCO3 ABG O2 Saturation ABG Base Excess ABG Hemoglobin ABG Oxyhemoglobin ABG Sodium ABG Potassium ABG Chloride ABG Glucose VBG pH Oxyhemoglobin Carboxyhemoglobin Sodium Potassium Chloride Carbon Dioxide 40 H BUN 27 H Creatinine Glucose 142 H POC Glucose 141 H 130 H Lactic Acid Calcium Phosphorus Magnesium Total Bilirubin AST ALT Ammonia Lactate Dehydrogenase Total Creatine Kinase CK-MB (CK-2) Troponin T C-Reactive Protein NT-Pro-B Natriuret Pep Total Protein Albumin 3.1 L Triglycerides TSH Arterial Blood Glucose Arterial Blood Ionized Calcium Urine pH Urine WBC (Auto) Urine Creatinine 11/21/20 11/22/20 11/22/20 23:28 04:55 04:55 WBC RBC 2.96 L Hgb 8.7 L Hct 27.0 L RDW 15.5 H Lymph % (Auto) Bibb % (Auto) 11.5 H Eos % (Auto) 5.3 H Lymph # (Auto) Bibb # (Auto) Eos # (Auto) Seg Neutrophils % Lymphocytes % (Manual) Monocytes % (Manual) Seg Neutrophils # Seg Neutrophils # Man Lymphocytes # (Manual) Monocytes # (Manual) D-Dimer Heparin Anti-Xa Level ABG pH POC ABG pCO2 POC ABG pO2 ABG pO2 ABG HCO3 ABG O2 Saturation ABG Base Excess ABG Hemoglobin ABG Oxyhemoglobin ABG Sodium ABG Potassium ABG Chloride ABG Glucose VBG pH Oxyhemoglobin Carboxyhemoglobin Sodium Potassium Chloride Carbon Dioxide 40 H BUN 26 H Creatinine Glucose 137 H POC Glucose 143 H Lactic Acid Calcium Phosphorus Magnesium Total Bilirubin AST ALT Ammonia Lactate Dehydrogenase Total Creatine Kinase CK-MB (CK-2) Troponin T C-Reactive Protein NT-Pro-B Natriuret Pep Total Protein Albumin 3.0 L Triglycerides TSH Arterial Blood Glucose Arterial Blood Ionized Calcium Urine pH Urine WBC (Auto) Urine Creatinine 11/22/20 05:41 WBC RBC Hgb Hct RDW Lymph % (Auto) Bibb % (Auto) Eos % (Auto) Lymph # (Auto) Bibb # (Auto) Eos # (Auto) Seg Neutrophils % Lymphocytes % (Manual) Monocytes % (Manual) Seg Neutrophils # Seg Neutrophils # Man Lymphocytes # (Manual) Monocytes # (Manual) D-Dimer Heparin Anti-Xa Level ABG pH POC ABG pCO2 POC ABG pO2 ABG pO2 ABG HCO3 ABG O2 Saturation ABG Base Excess ABG Hemoglobin ABG Oxyhemoglobin ABG Sodium ABG Potassium ABG Chloride ABG Glucose VBG pH Oxyhemoglobin Carboxyhemoglobin Sodium Potassium Chloride Carbon Dioxide BUN Creatinine Glucose POC Glucose 128 H Lactic Acid Calcium Phosphorus Magnesium Total Bilirubin AST ALT Ammonia Lactate Dehydrogenase Total Creatine Kinase CK-MB (CK-2) Troponin T C-Reactive Protein NT-Pro-B Natriuret Pep Total Protein Albumin Triglycerides TSH Arterial Blood Glucose Arterial Blood Ionized Calcium Urine pH Urine WBC (Auto) Urine Creatinine Allied health notes reviewed: nursing
[2020-11-22] MEDS: VANCOMYCIN 2,000 MG in SODIUM CHLORIDE 0.9% 500 ML 500 ML IV SCH (12:46)
--- NOTE | 2020-11-22 13:57 | Discharge Summary ---
Providers - Providers Date of Admission: 10/10/20 12:56 Date of discharge: 11/22/20 Attending physician: DAVID TORRES 10/10/20 10:34 Consult to Dietitian/Nutrition [CONS] Routine Physician Instructions: Reason For Exam: Reason for Consult: Evaluate nutritional intake 10/10/20 11:46 Consult to Physician [CONS] Routine Comment: Dr. Comer notified @ 13:04- [facility] Consulting Provider: MANI MILLER Physician Instructions: Reason For Exam: CCU, Acute resp failure, pulmonary edema vs pna 10/10/20 16:34 Consult to Physician [CONS] Stat Comment: Consulting Provider: BRIGITTE FIERRO Physician Instructions: Reason For Exam: cardiac arrest 10/10/20 17:50 Consult to Dietitian/Nutrition [CONS] Routine Physician Instructions: Reason For Exam: Reason for Consult: Evaluate nutritional intake 10/10/20 22:18 Consult to Dietitian/Nutrition [CONS] Routine Physician Instructions: Assess nutrtn needs, initiate, modify, manage TF Reason For Exam: Reason for Consult: Write/Manage Tube Feeding Reason for Consult: Write/Manage Tube Feeding 10/11/20 06:41 Consult to Physician [CONS] Routine Comment: Consulting Provider: GRIFFIN SIMMONS Physician Instructions: Reason For Exam: MOE 10/11/20 06:43 Consult to Physician [CONS] Routine Comment: Consulting Provider: AMNA BONILLA Physician Instructions: Reason For Exam: Sepsis 10/12/20 14:32 Consult to Physician [CONS] Routine Comment: NOTED/ AGA Consulting Provider: SYLVIA SHOOK Physician Instructions: Reason For Exam: GIB 10/12/20 15:24 Consult to Physician [CONS] Routine Comment: Consulting Provider: ANTHONY BUCK Physician Instructions: Reason For Exam: post code 10/14/20 15:00 Consult to Dietitian/Nutrition [CONS] Routine Physician Instructions: tpn Reason For Exam: Reason for Consult: Write/Manage TPN/PPN 10/17/20 07:44 PICC Line Insertion [Consult to PICC Line RN] [CONS] Urgent Reason For Exam: order dc current picc please assit with iv insert. Type Line:: PICC 10/17/20 13:02 Consult to Dietitian/Nutrition [CONS] Routine Physician Instructions: Reason For Exam: Reason for Consult: Write/Manage Tube Feeding 10/25/20 16:49 Consult to Physician [CONS] Routine Comment: left mess/ gaa Consulting Provider: LILA ALVAREZ Physician Instructions: Reason For Exam: Please assist with Tracheostomy and PEG placement 10/28/20 18:51 Consult to Wound/ET Nurse [CONS] Routine Reason For Exam: wound eval- Gabriel Heel DTI-unruptured blisters 11/15/20 11:57 Physical Therapy Evaluation and Treat [CONS] Routine Comment: Pending placement Reason For Exam: Neuro. deficits 11/15/20 11:58 Occupational Therapy Evaluate and Treat [CONS] Routine Comment: Pending placement Reason For Exam: Neuro. 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 Patient was intubated after ROSC was achieved and a central line was placed and the patient was initiated on pressors. In the emergency room patient seems to have seizure-like activity and then collapsed and was unresponsive with no palpable pulse and ACLS was again initiated patient with achievement of ROSC. Patient again coded with ACLS protocol in the CT room. Upon arrival to the ICU patient again coded and ROSC was achieved and he was placed on epinephrine, Lasix, heparin and sodium bicarbonate drip and sedated with propofol. An NG tube was placed, A-line was placed. Patient was admitted to the hospitalist service with consult to [facility], nephrology, infectious disease and cardiology. Cultures: SARS CoV2 PCR: negative. 10/10/2020 blood culture: No growth 10/10/2020 ET aspirate culture: Usual respiratory antonio 10/11/2020 urine culture: no growth 10/18/2020 blood culture: No growth today 10/18/2020 tracheal aspirate date: MRSA 10/20/2020 right nare MRSA 11/16/2020 tracheal aspirate: MRSA Daily clinical course: 10/11: Patient COVID-19 PCR is pending and he remains on mechanical ventilation, examination on assist control 400/30/12/0.95. Patient is scheduled for an echocardiogram and we will obtain bilateral lower extremity Doppler ultrasound given elevated D-dimer. Patient was supposed to have a CTA chest when he coded yesterday. We will begin trickle feeding. This morning patient was on a heparin drip and was noted to have bloody drainage from his NG tube. Heparin drip was discontinued. 10/12: Patient remains on propofol and Lasix drip at the time my examination and he is on assist control 400/25/12/0.60. Patient is hypokalemic this morning which was repleted. Nephrology discontinued Lasix drip and Diamox. Patient is hypertensive and has been started on hydralazine and beta-shital IV. He has been titrated off his vasopressors since yesterday. Vancomycin discontinued. Patient is currently on cefepime and azithromycin. 10/13: Sedation vacation attempted today and patient was not responsive to verbal or painful stimuli, does not track or focus or follow commands. This morning the patient has some respiratory alkalosis on ABG, hypernatremia and metabolic alkalosis on BMP. His kidney functions has improved slightly. Patient still has leukocytosis and infectious disease was like to continue antibiotic therapy. GI evaluated the patient yesterday and started the patient on PPI does not plan to scope at this time. At the time my examination patient assist-control 400/20/12/0.40 and sedated on propofol at 20. 4/2: GI has recommended a CT abdomen since there is increased output from OG tube and an MRI brain without contrast has been ordered per neurology recommendations. EEG is pending and the patient has been started on Keppra per neurology.. Nutrition has been consulted for initiation of parenteral nutrition. Patient remains sedated with propofol and his hypernatremia, leukocytosis, acute kidney injury and metabolic alkalosis is improving. Patient has hypokalemia today which was repleted. At the time of my examination patient was on assist control 400/14/10/0.40 and CCM has dropped his rate to 12 and PEEP to 8. We have labs ordered for a.m. He was given a clonidine patch given persistent hypertension and he remains on D5 water per nephrology. 10/15: This morning patient was started to have a low-grade fever and he will c ontinue antibiotic therapy per infectious disease. He will remove Tuttle catheter today and place a condom cath. Patient's renal function is worsening with a BUN/creatinine of 57/2.4 today and he has hyperphosphatemia at 5.2. This morning the time my examination patient is sedated on fentanyl and has TPN infusing. He is on assist control 400/12/8/0.35. Per GI we will start trial of tube feedings initiation has been reconsulted for orders. 10/18: Patient was febrile overnight and infectious disease has recultured (blood/sputum/right nostril culture) and sent in urinalysis. Cefepime was exte nded due to high fever and was started on vancomycin. Tube feeding is at goal and we will discontinue his parenteral nutrition. Patient is unable to obtain his MRI due to increased hypoxia and nasal secretions. He will be started on CPAP trials today. This time I examination patient was sedated on fentanyl and had PPN running at 42. His renal function tests have worsened and now has hyperchloremia. Hypernatremia has resolved. 10/19: Patient's T-max was 100.2 and he was pancultured yesterday, remains on antibiotic therapy and still has copious drainage from his nostrils. Patient still has leukocytosis however his/creatinine improved slightly to 3.1 from 3.3. Patient's urinalysis from yesterday shows pyuria. Patient's tracheal aspirate from yesterday grew Staph aureus. Patient is on cefepime and vancomycin. 10/20: This morning at the time my examination patient was CPAP trial of 04/19 and his T-max was 100.9. Patient sedated on fentanyl at 2 just received IV push fentanyl for tachycardia. Today his creatinine is 2.8 from 3.1 yesterday. Infectious disease has stopped cefepime and vancomycin and started linezolid and MRSA PCR is pending. Today removed his NG tube and replaced it with OG tube. We will keep the patient normal saline at 75 mL's per hour for 3 L. Patient developed A. fib/a flutter overnight and cardiology has increased his Lopressor and IV amiodarone. We requested neurology evaluation today. 10/21: Cardiology we will increase Lopressor to 3 times daily and discontinue his amiodarone drip. Infectious disease would like a sinus CT when feasible however patient did have a moment of desatting earlier this week when we attempted MRI brain. And again yesterday when we attempted a "trial run" with positioning at bedside Patient is on linezolid for 10 days per ID. 10/22/20; patient was seen and evaluated this morning, patient had low-grade fever overnight. Patient is on Lopressor per cardiology recommendation. Patient did not follow commands, no improvement in mental status. Evaluated by neurology yesterday and neurology once MRI or CAT scan but cannot be done because patient desats when he lies flat. Patient is on linezolid per ID recommendation. Continue NG tube feeding. Continue with Keppra. Patient is on assist control with PEEP of 6. Management plan was discussed with his yesterday. 10/23/2020; patient is on Zyvox for positive MRSA from tracheal aspirate and nasal secretion culture. Patient's mentation did not improve and does not follow commands. He was reevaluated by neurology and recommend MRI once patient is able to tolerate. MRI could not be done, CT scan could not be done because the patient could not lie flat. Clinically patient looks like she has anoxic encephalopathy. Patient is on NG tube feeding and on mechanical ventilation. Patient is on Keppra. Management plan was discussed with his . 10/24: This morning the patient is on AC TV 400,R 16, Peep 6 and FiO2 of 30% and sedated on 1mcg of Fentayl. He is hypernatremic and his kidney function tests have slightly improved. RN will attempt to obtain MRI Brain today since the patient was able to tolerate a "trial run" of being flat. [facility] plans to resume CPAP trials once MRI obtained. 10/25: This morning the time of examination patient was on assist control tidal volume 400, rate 16, PEEP 6, FiO2 30% and he is currently on CPAP. His MRI brain finding is consistent with status epilepticus or anoxic brain injury. Patient is EEG pending. No acute overnight events reported. 10/26: Patient has been on a CPAP trial 14/6 which she has been tolerating. Surgery was consulted for trach/PEG. Patient's hypernatremia and hyperchloremia slightly better as well as his kidney functions. He has received cardiac clearance for his trach and PEG. No acute events reported overnight. 10/27: At the time my examination patient was on CPAP trial 15/6 and 30% FiO2. Patient's electrolyte abnormalities were improving and sources kidney function. His T-max overnight was 99.3 and he remains on linezolid. No acute events reported overnight. 10/28: Yesterday patient had a trach and PEG placed. Patient remains n.p.o. as he has not been cleared by surgery to resume p.o. intake. Today he has slight leukocytosis which is likely reactive, hyponatremia, metabolic alkalosis however his kidney function continues to improve. No acute events overnight. 10/29: Plan to start tube feeding today, patient remains on mechanical ventilation with trach tube. Remains comatose without any change in mental status. Called and updated. 10/30: Vitals stable, patient remains on trach tube with ventilator. Tolerating tube feeding, otherwise clinically unchanged. Continue to provide supportive care and wean off from vent as tolerated. 10/31: No acute events reported overnight. Patient is CPAP at the time my examination however he will be tried on trach collar and we will obtain an ABG within 2 hours. 11/01. Patient is on a trach collar at 35% FiO2, he was reported, patient received Lasix and will obtain an ABG at 2100. dr. Torres updated his and his mother is at bedside visiting him. 11/02. Patient was rested on assist control due to "tube feedings" endotracheal tube however CXR looks mild atelectasis rather than pneumonia. [facility] has given the patient another dose of Lasix and will obtain a CXR in the a.m. Patient remains with low-grade fever and we will resume daily SBT as tolerated. We will obtain a.m. labs and resume tube feedings. 11/03: Overnight the patient was rested on assist control and this afternoon he received CPAP trials. Patient's CXR looks pulmonary edema and he received additional 20 mg of Lasix today and tomorrow. Dr. Torres updated the patient's family via phone today and they do not wish to change his code status. Patient's Robinul and scopolamine was decreased. 11/04: Patient was started on Mucomyst due to thick secretion, will continue gentle diuresis and again began T-piece trials. Pa this time my examination he was on CPAP trial 10 and was rested overnight, assist control. According to documentation patient rested on CPAP trial yesterday for approximately 4-1/2 hours. No acute events reported overnight. 11/05 patient improved with Mucomyst. Attempted weaning to begin T-piece trial. Physical examination consistent with anoxia 11/06. No new events over p.m. Secretions appear to be controlled. Updated family today. All questions and concerns answered to family satisfaction. 11/07: T-piece trials to resume. No acute events overnight. Continue current care. PT/OT consult. Transfer to [facility]. 11/09/2020. No new issues. Continue trach care, secretion control and airway management. Continue tube feedings which the patient is tolerating. Gastrostomy tube care. 11/11: Patient has remained on T-piece for 24 hours and he will be transferred to the floor. He is restarted on Mucomyst today per [facility]. 11/12: The patient was transferred to the floor yesterday and remained stable on T-piece. Continue tracheostomy care, secretion control and airway management. Continue Mucomyst. -10/24 MRI Brain shows restricted diffusion and increased T2 signal cerebral cortex which can be seen in the setting of anoxic brain injury and/ or status epilepticus. -10/26 EEG shows significant generalized slowing compatible with to moderate severe diffuse neuropathy recently compatible with anoxic/ischemic encephalopathy 11/13: Patient remains on T-piece with oxygen at 8 L/min and saturations of 97%. Continue tracheostomy care secretion control and airway management. Gastrostomy tube care. Tube feedings with aspiration precaution. 11/14: Patient with an episode yesterday evening of tachypnea and desaturation. Also, patient noted to have distended abdomen/bladder which is likely causing respiratory distress. Tuttle was placed for urinary retention. ABG revealed pH 7.3, PCO2 68 and PO2 of 101. Pulmonology made no changes. Patient still on T- piece at 10 L/min with FiO2 35%. Continue tracheostomy care secretion control and airway management. Gastrostomy tube care. Tube feedings with aspiration precaution. 11/15. Has thick secretions from the tracheostomy. Remains on 6 L of oxygen. Tuttle was placed yesterday for distended bladder. 11/16. Not responsive. Temp spikes noted - 100.2F. Will get sputum culture. Continue oxygen supplementation. Needs placement. Discussed with patients spouse today. 11/17. Waiting for placement. Has [employer] insurance. He remains unresponsive. Temp 99.7. Chest xray, sputum culture pending. 11/18 patient is awake, confused, nonverbal and does not follow simple commands, bilateral wrist restraints, lab results reviewed, chart and all interdisciplinary notes reviewed. Discussed with ID Dr. Canchola to reconsult on the patient 11/19 patient earlier this morning went into respiratory arrest. He was successfully resuscitated. Tracheostomy tube changed. Actively suctioned. Stat chest x-ray were was ordered. Called patient's to discuss his CODE STATUS. She wants me to call her back in about 10 minutes. Patient remains unresponsive ID note reviewed. Poor prognosis. 11/20 resting comfortably, not in distress, lab results reviewed, I had extensive multiple discussions with patient's and patient's mother. Mother wants patient to be a full code and do everything possible to keep him alive 11/21. Remains unresponsive to calls. Family wants him to be full code. On vancomycin for MRSA. 11/22: No change clinically, Patient accepted for LTAC, will discharge to LTAC for further care and management. Discussed with case mgr for discharge planning. last dose of vancomycin today. poor prognosis. Disposition: DC-01 TO HOME OR SELFCARE Final Discharge Diagnosis (Prints w/discharge instructions): Acute hypoxic respiratory failure. Status post multiple cardiac arrests. MRSA tracheobronchitis-completed 5 days treatment with vancomycin. Hypertension. NSTEMI type II. MOE due to vasomotor nephropathy. Anoxic brain injury due to cardiac arrest. Paroxysmal atrial fibrillation now normal sinus rhythm -no systemic AC due to GI bleed. Seizure disorder. GI bleed with heparin Core Measure Documentation - Palliative Care Palliative Care/ Comfort Measures: Not Applicable - Core Measures Any of the following diagnoses?: none Exam - Physical Exam Narrative exam: VITAL SIGNS: Reviewed. GENERAL: Not responsive, intermittently will randomly open eyes HEAD: No signs of head trauma. EYES: Pupils are equal. MOUTH: Oropharynx is normal. NECK: No adenopathy, no JVD. Trach in place CHEST: Rales bilaterally CARDIAC: normal S1 and S2, ABDOMEN: Soft, non tender and non distended. Bowel Sounds normal. MUSCULOSKELETAL: No edema NEUROLOGIC EXAM: Not responsive SKIN: No obvious lesions - Constitutional Vitals: Temp Pulse Resp BP Pulse Ox 98.1 F 90 20 172/83 96 11/22/20 12:00 11/22/20 13:00 11/22/20 13:00 11/22/20 13:00 11/22/20 13:00 Plan Activity: up only with assistance Diet: no red dye, no straws, no carbonated beverages, other (TUBE feeding diet) Wound: per wound nurse instructions Additional Instructions: Further care and management will be provided by LTAC physicians following discharge Follow up with: PRIMARY MD REBEL [Primary Care Provider] - 7 Days
[2020-11-22 17:20] VITALS: BP 177/87
== END 2020-11-22 17:00 | DRG 4 ==
LOC: ED 10:20 → CC1 12:56 → IMCU 11-07 18:11 → 4A 11-11 17:56 → IMCU 11-19 11:28
PROVIDERS: ADMIT Internal Medicine; ATTEND Internal Medicine
PROC: 5A1955Z Respiratory Ventilation, Greater than 96 Consecutive Hours (ICD-10-PCS; principal; 2020-10-10)
PROC: 0BH17EZ Insertion of Endotracheal Airway into Trachea, Via Natural or Artificial Opening (ICD-10-PCS; 2020-10-10)
PROC: 02HV33Z Insertion of Infusion Device into Superior Vena Cava, Percutaneous Approach (ICD-10-PCS; 2020-10-10)
PROC: B548ZZA Ultrasonography of Superior Vena Cava, Guidance (ICD-10-PCS; 2020-10-10)
PROC: 04HY32Z Insertion of Monitoring Device into Lower Artery, Percutaneous Approach (ICD-10-PCS; 2020-10-10)
PROC: 4A133B1 Monitoring of Arterial Pressure, Peripheral, Percutaneous Approach (ICD-10-PCS; 2020-10-10)
PROC: 4A133J1 Monitoring of Arterial Pulse, Peripheral, Percutaneous Approach (ICD-10-PCS; 2020-10-10)
PROC: 5A12012 Performance of Cardiac Output, Single, Manual (ICD-10-PCS; 2020-10-10)
PROC: 02HV33Z Insertion of Infusion Device into Superior Vena Cava, Percutaneous Approach (ICD-10-PCS; 2020-10-17)
PROC: 0B110F4 Bypass Trachea to Cutaneous with Tracheostomy Device, Open Approach (ICD-10-PCS; 2020-10-27)
PROC: 5A1955Z Respiratory Ventilation, Greater than 96 Consecutive Hours (ICD-10-PCS; 2020-10-27)
PROC: 0DH63UZ Insertion of Feeding Device into Stomach, Percutaneous Approach (ICD-10-PCS; 2020-10-27)
PROC: 4A033R1 Measurement of Arterial Saturation, Peripheral, Percutaneous Approach (ICD-10-PCS; 2020-10-31)
DX: A41.9 Sepsis, unspecified organism (principal); I46.9 Cardiac arrest, cause unspecified; J96.01 Acute respiratory failure with hypoxia; I21.A1 Myocardial infarction type 2; J96.02 Acute respiratory failure with hypercapnia; J69.0 Pneumonitis due to inhalation of food and vomit; R65.21 Severe sepsis with septic shock; I50.31 Acute diastolic (congestive) heart failure; N17.0 Acute kidney failure with tubular necrosis; J15.212 Pneumonia due to Methicillin resistant Staphylococcus aureus; K92.2 Gastrointestinal hemorrhage, unspecified; E87.1 Hypo-osmolality and hyponatremia; E87.0 Hyperosmolality and hypernatremia; N39.0 Urinary tract infection, site not specified; I48.92 Unspecified atrial flutter; G93.1 Anoxic brain damage, not elsewhere classified; Z20.822 Contact with and (suspected) exposure to COVID-19; J45.909 Unspecified asthma, uncomplicated; I95.9 Hypotension, unspecified; E87.6 Hypokalemia; E66.01 Morbid (severe) obesity due to excess calories; Z68.39 Body mass index [BMI] 39.0-39.9, adult; E87.70 Fluid overload, unspecified; R74.01 Elevation of levels of liver transaminase levels; I11.0 Hypertensive heart disease with heart failure; E87.8 Other disorders of electrolyte and fluid balance, not elsewhere classified; G40.909 Epilepsy, unspecified, not intractable, without status epilepticus; I48.0 Paroxysmal atrial fibrillation
CPT/HCPCS: 36415; 36600; 70450; 70553; 71045; 74018; 74150; 76770; 80048; 80053; 80061; 80202; 80307; 80320; 81001; 82140; 82550; 82553; 82570; 82728; 82803; 82805; 82962; 83036; 83615; 83735; 83880; 84100; 84145; 84300; 84443; 84478; 84484; 84520; 85007; 85014; 85018; 85025; 85027; 85049; 85379; 85520; 85610; 85730; 86140; 86850; 86900; 86901; 87040; 87070; 87076; 87086; 87116; 87186; 87205; 87641; 89050; 93005; 93306; 93970; 94002; 94003; 94640; 95819; 96365; 96375; 99292; G0378; A9575; C9113; G0480; J0171; J0282; J0360; J0456; J0690; J0692; J0696; J1100; J1120; J1170; J1205; J1644; J1940; J1953; J1956; J2020; J2060; J2250; J2270; J2405; J2704; J2997; J3010; J3370; J3480; J7030; J7040; J7050; J7060; J7070; U0003